=== PATIENT | female | born 1975 | race Hispanic/Latino ===

== ENCOUNTER 2017-09-14 07:43 | Emergency (ER) | payer SELFPAY ==
--- NOTE | 2017-09-14 08:27 | EDPHYS ---
Physician Documentation [facility] Name: Sidra Hodges Age: 42 yrs Sex: Female : 1975 Arrival Date: 09/14/2017 Time: 07:42 Bed 16 Private MD: ED Physician Pascual Lundy HPI: 09/14 08:13 This 42 yrs old Female presents to ER via EMS with complaints of Shoulder Pain ry - left knee pain. 08:13 The patient or guardian complains of decreased range of motion, pain, that is chronic. ry right shoulder and left shoulder. Context: The problem was sustained on a street or driveway. Onset: The symptoms/episode began/occurred 1 month(s) ago. Modifying factors: the symptoms are alleviated by remaining still, The symptoms are aggravated by movement, rotation of arm. Associated signs and symptoms: The patient has no apparent associated signs or symptoms. 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 - Social history:: Smoking status: Patient/guardian denies using tobacco. ROS: 08:15 Constitutional: Negative for fever, chills, and weight loss, Eyes: Negative for injury, ry pain, redness, and discharge, ENT: Negative for injury, pain, and discharge, Neck: Negative for injury, pain, and swelling, Cardiovascular: Negative for chest pain, palpitations, and edema, Respiratory: Negative for shortness of breath, cough, wheezing, and pleuritic chest pain, Back: Negative for injury and pain, : Negative for injury, bleeding, discharge, and swelling, Skin: Negative for injury, rash, and discoloration, Neuro: Negative for headache, weakness, numbness, tingling, and seizure, Psych: Negative for depression, anxiety, suicide ideation, homicidal ideation, and hallucinations, Allergy/Immunology: Negative for hives, rash, and allergies, Endocrine: Negative for neck swelling, polydipsia, polyuria, polyphagia, and marked weight changes, Hematologic/Lymphatic: Negative for swollen nodes, abnormal bleeding, and unusual bruising. 08:15 Abdomen/GI: Positive for rectal pain. 08:15 MS/extremity: Positive for decreased range of motion, pain, of the left leg and left shoulder and right shoulder. Exam: 08:15 Constitutional: This is a well developed, well nourished patient who is awake, alert, ry and in no acute distress. Head/Face: Normocephalic, atraumatic. Eyes: Pupils equal round and reactive to light, extra-ocular motions intact. Lids and lashes normal. Conjunctiva and sclera are non-icteric and not injected. Cornea within normal limits. Periorbital areas with no swelling, redness, or edema. ENT: Nares patent. No nasal discharge, no septal abnormalities noted. Tympanic membranes are normal and external auditory canals are clear. Oropharynx with no redness, swelling, or masses, exudates, or evidence of obstruction, uvula midline. Mucous membranes moist. Neck: Trachea midline, no thyromegaly or masses palpated, and no cervical lymphadenopathy. Supple, full range of motion without nuchal rigidity, or vertebral point tenderness. No Meningismus. Chest/axilla: Normal chest wall appearance and motion. Nontender with no deformity. No lesions are appreciated. Cardiovascular: Regular rate and rhythm with a normal S1 and S2. No gallops, murmurs, or rubs. Normal PMI, no JVD. No pulse deficits. Respiratory: Lungs have equal breath sounds bilaterally, clear to auscultation and percussion. No rales, rhonchi or wheezes noted. No increased work of breathing, no retractions or nasal flaring. Abdomen/GI: Soft, non-tender, with normal bowel sounds. No distension or tympany. No guarding or rebound. No evidence of tenderness throughout. Back: No spinal tenderness. No costovertebral tenderness. Full range of motion. Female : Normal external genitalia. Skin: Warm, dry with normal turgor. Normal color with no rashes, no lesions, and no evidence of cellulitis. Neuro: Awake and alert, GCS 15, oriented to person, place, time, and situation. Cranial nerves II-XII grossly intact. Motor strength 5/5 in all extremities. Sensory grossly intact. Cerebellar exam normal. Normal gait. Psych: Awake, alert, with orientation to person, place and time. Behavior, mood, and affect are within normal limits. Vital Signs: 07:37 BP 134 / 85; Pulse 75; Resp 16; Temp 98.4(O); Pulse Ox 98% on R/A; Weight 59.87 kg; rb1 Height 5 ft. 1 in. (154.94 cm); Pain 7/10; 08:30 BP 134 / 86; Pulse 83; Resp 16; Pulse Ox 100% on R/A; rb1 07:37 Body Mass Index 24.94 (59.87 kg, 154.94 cm) [facility] MDM: 07:43 Patient medically screened. [facility] 08:21 Data reviewed: vital signs, nurses notes, lab test result(s), urinalysis, radiologic ry studies, plain films. 09/14 07:44 Order name: Amylase, Serum [facility] 09/14 07:44 Order name: Basic Metabolic Panel [facility] 09/14 07:44 Order name: CBC with Diff [facility] 09/14 07:44 Order name: Creatinine for Radiology [facility] 09/14 07:44 Order name: Hepatic Function [facility] 09/14 07:44 Order name: Lipase [facility] 09/14 07:44 Order name: Urine Test (obtain specimen); Complete Time: 08:40 [facility] 09/14 07:44 Order name: Urine Microscopic Only [facility] 09/14 07:44 Order name: UDS [facility] 09/14 07:44 Order name: Urine Culture [facility] 09/14 07:44 Order name: Urine Dipstick-Ancillary (obtain specimen); Complete Time: 08:50 [facility] Administered Medications: 08:39 Not Given (physician changed orders): NS 0.9% 500 ml IV at bolus once [facility] 08:49 Drug: Tylenol 650 mg Route: PO; rb1 08:50 Follow up: Response: Medication administered at discharge. rb1 Disposition: 09/14/17 08:26 Discharged to Home. Impression: Hemorrhoids and perianal venous thrombosis, Pain in left shoulder, Pain in right shoulder, Pain in left knee. - Condition is Stable. - Discharge Instructions: Arthralgia, Arthritis, Nonspecific, Hemorrhoids, Musculoskeletal Pain, Shoulder Pain, Sitz Bath, Knee Pain, Shoulder Pain, [id number], Hemorrhoids, [id number]. - Prescriptions for Motrin IB 200 mg Oral Tablet - take 2 tablet by ORAL route every 6 hours As needed as needed with food; 30 tablet. Anusol- HC 25 mg Rectal Suppository - insert 1 suppository by RECTAL route every 12 hours As needed; 14 suppository. Colace 100 mg Oral Tablet - take 1 tablet by ORAL route every 12 hours; 14 tablet. - Medication Reconciliation Form, Thank You Letter, Antibiotic Education, Prescription Opioid Use form. - Follow up: Private Physician; When: 2 - 3 days; Reason: Recheck today's complaints, Continuance of care, Re-evaluation by your physician. Follow up: Miguel Angel Rodrigues MD; When: 2 - 3 days; Reason: Recheck today's complaints, Re-evaluation by your physician. - Problem is new. - Symptoms have improved. Signatures: Dispatcher [employer] EDPA Pascual Lundy MD MD cha Barber, Rebecca RN RN rb1 Corrections: (The following items were deleted from the chart) 08:39 07:44 IV Saline Lock ordered. ry rb1 08:40 07:44 Labs collected and sent ordered. ry cortez
--- NOTE | 2017-09-14 08:27 | ER ---
Nurse's Notes [facility] Name: Sidra Hodges Age: 42 yrs Sex: Female : 1975 Arrival Date: 09/14/2017 Time: 07:42 Bed 16 Private MD: Diagnosis: Hemorrhoids and perianal venous thrombosis;Pain in left shoulder;Pain in right shoulder;Pain in left knee Presentation: 09/14 07:37 Presenting complaint: EMS states: Pt. c/o of abdominal pain. A \T\ O x 4, history of rb1 Psych problems and seizures. BP 149/90, P 87, O2 100% RA. Pt. is able to ambulate. Transition of care: patient was not received from another setting of care. Care prior to arrival: None. 07:37 Method Of Arrival: EMS: [facility] 07:37 Acuity: CARMITA 3 rb1 07:37 Onset of symptoms is unknown. rb1 Triage Assessment: 07:37 GI: No signs and/or symptoms were reported involving the gastrointestinal system. : rb1 No signs and/or symptoms were reported regarding the genitourinary system. Derm: Bruising that is on left knee. 07:37 General: Appears in no apparent distress. comfortable, Behavior is calm, cooperative. rb1 Pain: Complains of pain in left leg and left shoulder and right shoulder Pain currently is 7 out of 10 on a pain scale. Pain began a month ago. Neuro: Level of Consciousness is awake, alert, obeys commands, Oriented to person, place, time, situation. Cardiovascular: Capillary refill < 3 seconds is brisk in bilateral fingers. Respiratory: Airway is patent Respiratory effort is even, unlabored, Respiratory pattern is regular, symmetrical. Musculoskeletal: Range of motion: intact in all extremities. 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 - Social history:: Smoking status: Patient/guardian denies using tobacco. Screenin:37 Abuse screen: Denies threats or abuse. Nutritional screening: No deficits noted. rb1 Tuberculosis screening: No symptoms or risk factors identified. Fall Risk None identified. Assessment: 07:37 GI: Bowel sounds present X 4 quads. Abd is soft Abd is non tender. rb1 07:37 General: See triage assessment . rb1 08:30 Reassessment: Patient appears in no apparent distress at this time. No changes from rb1 previously documented assessment. Vital Signs: 07:37 BP 134 / 85; Pulse 75; Resp 16; Temp 98.4(O); Pulse Ox 98% on R/A; Weight 59.87 kg; rb1 Height 5 ft. 1 in. (154.94 cm); Pain 7/10; 08:30 BP 134 / 86; Pulse 83; Resp 16; Pulse Ox 100% on R/A; rb1 07:37 Body Mass Index 24.94 (59.87 kg, 154.94 cm) rb1 ED Course: 07:37 Arm band placed on right wrist. rb1 07:37 Patient has correct armband on for positive identification. Bed in low position. Call rb1 light in reach. Side rails up X 1. Pulse ox on. NIBP on. 07:42 Patient arrived in ED. rb1 07:43 Dayanna Forte, RN is Primary Nurse. rb1 07:43 Pascual Lundy MD is Attending Physician. ry 07:46 Triage completed. rb1 08:26 Miguel Angel Rodrigues MD is Referral Physician. ry 08:45 No provider procedures requiring assistance completed. Patient did not have IV access rb1 during this emergency room visit. 08:49 Urine Microscopic Only Sent. rb1 Administered Medications: 08:39 Not Given (physician changed orders): NS 0.9% 500 ml IV at bolus once rb1 08:49 Drug: Tylenol 650 mg Route: PO; rb1 08:50 Follow up: Response: Medication administered at discharge. rb1 Outcome: 08:26 Discharge ordered by . [facility] 08:49 Patient left the ED. rb1 08:49 Discharged to home ambulatory. 08:49 Condition: stable 08:49 Discharge instructions given to patient, Instructed on discharge instructions, follow up and referral plans. medication usage, Demonstrated understanding of instructions, follow-up care, medications, Prescriptions given X 3. Signatures: Kamron, Pascual, MD MD ry Forte, Dayanna, RN RN rb1 Corrections: (The following items were deleted from the chart) 08:56 07:37 General: Appears See Nurses notes.. rb1 rb1 : 08:56 GI: rb1 rb1 08:59 Patient left the ED. rb1 rb1 08:57 No provider procedures requiring assistance completed. rb1 rb1 08:57 Patient did not have IV access during this emergency room visit. rb1 rb1 08:45 Discharged to home ambulatory, rb1 rb1 08:45 Condition: stable rb1 rb1 08:45 Discharge instructions given to patient, Instructed on discharge instructions, rb1 follow up and referral plans. medication usage, Demonstrated understanding of instructions, follow-up care, medications, Prescriptions given X 3, rb1 08:45 Patient left the ED. rb1 rb1
[2017-09-14] MEDS ORDERED: ACETAMINOPHEN 325 MG TABLET ONE (09:05)
[2017-09-14 09:28] LABS: Urine Blood NEGATIVE (NEG); Urine Glucose NEGATIVE (NEG); Urine Protein NEGATIVE (NEG); Urine Specific Gravity 1.025 (1.005-1.030); Urine pH 6.5 (5.0-7.0)
[2017-09-14 09:35] LABS: Urine Bacteria <20 /HPF (<20); Urine Culture Reflex Order NOT NEEDED; Urine RBC <5 /HPF (NONE SEEN)
== END 2017-09-14 08:59 | disposition home or self-care (01) ==
LOC: ER 07:43
DX: K64.5 Perianal venous thrombosis (principal); M25.512 Pain in left shoulder; M25.511 Pain in right shoulder; M25.562 Pain in left knee; F31.9 Bipolar disorder, unspecified; G40.909 Epilepsy, unspecified, not intractable, without status epilepticus; X58.XXXA Exposure to other specified factors, initial encounter; Y92.410 Unspecified street and highway as the place of occurrence of the external cause
CPT/HCPCS: 81003; 81015; 87086; 87088; 99284

== ENCOUNTER 2017-10-05 12:39 | Emergency (ER) | payer SELFPAY ==
[2017-10-05 14:06] LABS: Bicarbonate 30 mEq/L (21-31); Glucose Level 94 mg/dL (65-120); Lipase 16 U/L (22-51); Potassium 4.1 mEq/L (3.6-5.0); Sodium Level 132 mEq/L (135-145)
[2017-10-05 14:07] LABS: Absolute Lymphocytes (CBC) 1.8 K/uL (0.7-4.9); Absolute Monocytes 0.4 K/uL (0.1-1.3); Absolute Neutrophil 4.5 K/uL (1.8-8.0); Basophils % 0.6 % (0-1.3); Eosinophils % 3.4 % (0-4.4); Hematocrit 36.7 % (36.0-45.0); Lymphocytes % 25.9 % (15.3-44.8); MCH 29.5 pg (27.0-35.0); MCV 88.8 fL (80-100); Monocytes % 6.2 % (3.3-12.3); RBC Red Blood Cell Count 4.14 M/uL (3.86-4.86)
[2017-10-05 14:12] LABS: ALT/SGPT 11 IU/L (10-60); AST/SGOT 14 IU/L (10-42); Albumin 3.6 g/dL (3.2-5.5); Alkaline Phosphatase 44 IU/L (42-121); BUN Blood Urea Nitrogen 13 mg/dL (6-20); Bilirubin Direct < 0.1 mg/dL (0-0.2); Bilirubin Total 0.3 mg/dL (0.3-1.2); Glomerular Filtration Rate > 90 mL/min (=/>90); Protein, Total 7.6 g/dL (6.0-8.3)
[2017-10-05] MEDS ORDERED: ACETAMINOPHEN 325 MG TABLET ONE (14:52)
--- NOTE | 2017-10-05 14:57 | RAD REPORT ---
EXAM DESCRIPTION: CT - Abdomen Pelvis W Contrast - 10/05/2017 2:43 pm CLINICAL HISTORY: Abdominal pain, rectal pain, rectal bleeding COMPARISON: CT stone study June 2016 , contrast CT study August 2015 TECHNIQUE: Biphasic, helical CT imaging of the abdomen and pelvis was performed following 100 ml non -ionic IV contrast. Oral contrast was given. All CT scans are performed using dose optimization technique as appropriate and may include automated exposure control or mA/KV adjustment according to patient size. FINDINGS: No suspicious findings in the lung bases. The liver, spleen, and pancreas show no suspicious findings. Multiple gallstones are again identified . Acute gallbladder or biliary tree process is doubtful. Symmetric renal function is seen with no hydronephrosis or suspicious renal mass. No pyelonephritis o r acute renal parenchymal process. Renal cyst noted on the right and stable. Contracted urinary bladd er shows no suspicious finding. Uterus and ovaries show no new or suspicious findings. No gastric dilatation or gastric wall thickening. No acute small bowel finding. No appendicitis findi ngs. From cecum through descending colon there is no acute process seen. Sigmoid is decompressed and tortuous. Anna of the distal rectum are thickened and nodular. Edema is evident. This is a pattern s imilar to the 2016 study. No measurable stranding in the perirectal fat. 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 No free air, free fluid or inflammatory stranding. No hernia, mass or bulky lymphadenopathy. No adre nal abnormality. No suspicious bony findings. IMPRESSION: Thickened and nodular anna of the distal rectum. This could be an an infectious/inflamm atory proctitis or possibly internal hemorrhoids. No other acute GI process seen. Cholelithiasis similar to prior imaging. No active gallbladder process suspected.
--- NOTE | 2017-10-05 15:53 | EDPHYS ---
Physician Documentation [facility] Name: Sidra Hodges Age: 42 yrs Sex: Female : 1975 Arrival Date: 10/05/2017 Time: 12:41 Bed 18 Private MD: ED Physician Boris Olivera HPI: 10/05 15:41 This 42 yrs old Female presents to ER via EMS with complaints of Rectal Pain \T\ kdr abdominal pain. 15:42 The patient presents with abdominal pain in the epigastric area, in the upper abdomen, kdr Rectal area - it has been a problem before. Onset: The symptoms/episode began/occurred at an unknown time, This has been a ongoing problem and she has been seen here previously for the same issue a number of time. The symptoms do not radiate. Associated signs and symptoms: none. The symptoms are described as achy, crampy, dull, vague, waxing/waning. The patient has been recently seen by a physician: The patient has been recently seen at the [facility] Emergency Department. The patient is a poor historian. 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 - Social history:: Smoking status: Patient/guardian denies using tobacco. ROS: 15:42 Constitutional: The patient is a poor historian and is seen here on a regular basis for kdr same and other complaints 15:42 Unable to obtain ROS due to patient being uncooperative, The patient is a poor historian due to psych issues. Exam: 15:42 Constitutional: This is a well developed, well nourished patient who is awake, alert, kdr and in no acute distress. Head/Face: Normocephalic, atraumatic. Eyes: Pupils equal round and reactive to light, extra-ocular motions intact. Lids and lashes normal. Conjunctiva and sclera are non-icteric and not injected. Cornea within normal limits. Periorbital areas with no swelling, redness, or edema. Neck: Trachea midline, no thyromegaly or masses palpated, and no cervical lymphadenopathy. Supple, full range of motion without nuchal rigidity, or vertebral point tenderness. No Meningismus. Chest/axilla: Normal chest wall appearance and motion. Nontender with no deformity. No lesions are appreciated. Cardiovascular: Regular rate and rhythm with a normal S1 and S2. No gallops, murmurs, or rubs. Normal PMI, no JVD. No pulse deficits. Respiratory: Lungs have equal breath sounds bilaterally, clear to auscultation and percussion. No rales, rhonchi or wheezes noted. No increased work of breathing, no retractions or nasal flaring. Back: No spinal tenderness. No costovertebral tenderness. Full range of motion. Skin: Warm, dry with normal turgor. Normal color with no rashes, no lesions, and no evidence of cellulitis. MS/ Extremity: Pulses equal, no cyanosis. Neurovascular intact. Full, normal range of motion. 15:42 Abdomen/GI: Inspection: obese Bowel sounds: active, diminished, in all quadrants, Palpation: soft, mild abdominal tenderness, in all quadrants. Vital Signs: 12:49 BP 137 / 92; Pulse 71; Resp 18; Temp 97.8; Pulse Ox 99% on R/A; Pain 10/10; em 13:45 BP 143 / 90; Pulse 74; Resp 18; Pulse Ox 99% on R/A; em 14:45 BP 136 / 87; Pulse 78; Resp 18; Pulse Ox 99% on R/A; Pain 8/10; em 15:50 BP 132 / 86; Pulse 71; Resp 16; Temp 98.1(O); Pulse Ox 100% on R/A; em MDM: 15:42 Data reviewed: vital signs, nurses notes, lab test result(s), radiologic studies. kdr Counseling: I had a detailed discussion with the patient and/or guardian regarding: the historical points, exam findings, and any diagnostic results supporting the discharge/admit diagnosis, lab results, radiology results, the need for outpatient follow up. 15:53 Patient medically screened. kdr 10/05 13:26 Order name: CBC with Diff; Complete Time: 15:41 kdr 10/05 13:26 Order name: Chem 7; Complete Time: 14:59 kdr 10/05 13:26 Order name: CT Abd/Pelvis - W/Contrast; Complete Time: 14:59 kdr 10/05 13:26 Order name: Lipase; Complete Time: 14:59 kdr 10/05 13:26 Order name: Hepatic Function; Complete Time: 14:59 kdr Administered Medications: 15:30 Drug: Tylenol 650 mg Route: PO; em 16:30 Follow up: Response: No adverse reaction; Pain is decreased em Disposition: 10/05/17 15:53 Discharged to Home. Impression: Abdominal and pelvic pain, Rectal pain, internal hemorrhoids vs prcotitis. - Condition is Stable. - Discharge Instructions: Abdominal Pain, Adult, [id number]. - Prescriptions for Pepcid 20 mg Oral Tablet - take 1 tablet by ORAL route every 12 hours for 5 days; 10 tablet. Zofran 4 mg Oral Tablet - take 1 tablet by ORAL route every 12 hours As needed; 12 tablet. Tramadol 50 mg Oral Tablet - take 1 tablet by ORAL route every 8 hours as needed; 12 tablet. - Medication Reconciliation Form, Thank You Letter, Antibiotic Education, Prescription Opioid Use form. - Follow up: Private Physician; When: 1 - 2 days; Reason: If symptoms return, Further diagnostic work-up, Recheck today's complaints, Continuance of care, Re-evaluation by your physician. - Problem is an ongoing problem. - Symptoms are unchanged. Signatures: Dispatcher [employer] Boris Uribe MD MD kdr Florentin Heath, MART DIPPING MACHINE OPERATOR em
--- NOTE | 2017-10-05 15:53 | ER ---
Nurse's Notes [facility] Name: Sidra Hodges Age: 42 yrs Sex: Female : 1975 Arrival Date: 10/05/2017 Time: 12:41 Bed 18 Private MD: Diagnosis: Abdominal and pelvic pain;Rectal pain, internal hemorrhoids vs prcotitis Presentation: 10/05 12:41 Presenting complaint: EMS states: called out for rectal pain, c/o "pain down there" and em abd pain, reports bleeding that started 3 days ago. Transition of care: patient was not received from another setting of care. Onset of symptoms was October 02, 2017. Care prior to arrival: None. 12:41 Method Of Arrival: EMS: [facility] em 12:59 Acuity: CARMITA 3 iw Triage Assessment: 12:49 General: Appears in no apparent distress. uncomfortable, Behavior is calm, cooperative. em Pain: Complains of pain in rectum. 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 - Social history:: Smoking status: Patient/guardian denies using tobacco. Screenin:53 Abuse screen: Denies threats or abuse. Nutritional screening: No deficits noted. em Tuberculosis screening: No symptoms or risk factors identified. Fall Risk None identified. Assessment: 12:51 General: Appears in no apparent distress. uncomfortable, Behavior is calm, cooperative. em Pain: Complains of pain in rectum Pain currently is 10 out of 10 on a pain scale. Pain began 2-3 days ago. Neuro: Level of Consciousness is awake, alert, obeys commands, Oriented to person, place, time, situation. Cardiovascular: Capillary refill < 3 seconds Patient's skin is warm and dry. Respiratory: Airway is patent Respiratory effort is even, unlabored, Respiratory pattern is regular, symmetrical. GI: Abdomen is round non-distended, Bowel sounds present X 4 quads. Abd is soft X 4 quads Abdomen is tender to palpation in right lower quadrant and left lower quadrant Reports rectal bleeding, Patient currently denies nausea, vomiting. : Reports burning with urination. EENT: No signs and/or symptoms were reported regarding the EENT system. Derm: Skin is intact, Skin is pink, warm \\T\\ dry. Musculoskeletal: Range of motion: intact in all extremities. 13:43 Reassessment: Patient appears in no apparent distress at this time. I agree with above iw assessment by Florentin Heath LVN. 13:55 Reassessment: Patient appears in no apparent distress at this time. Patient and/or em family updated on plan of care and expected duration. Pain level reassessed. Patient is alert, oriented x 3, equal unlabored respirations, skin warm/dry/pink. 14:56 Reassessment: Patient appears in no apparent distress at this time. Patient is alert, em oriented x 3, equal unlabored respirations, skin warm/dry/pink. pt c/o of pain, Dr. Olivera notified, new orders received. 16:04 Reassessment: Patient appears in no apparent distress at this time. Patient and/or em family updated on plan of care and expected duration. Pain level reassessed. Patient is alert, oriented x 3, equal unlabored respirations, skin warm/dry/pink. Patient states feeling better. Vital Signs: 12:49 BP 137 / 92; Pulse 71; Resp 18; Temp 97.8; Pulse Ox 99% on R/A; Pain 10/10; em 13:45 BP 143 / 90; Pulse 74; Resp 18; Pulse Ox 99% on R/A; em 14:45 BP 136 / 87; Pulse 78; Resp 18; Pulse Ox 99% on R/A; Pain 8/10; em 15:50 BP 132 / 86; Pulse 71; Resp 16; Temp 98.1(O); Pulse Ox 100% on R/A; em ED Course: 12:41 Patient arrived in ED. em 12:45 Boris Olivera MD is Attending Physician. kdr 12:53 Arm band placed on. em 12:55 Patient has correct armband on for positive identification. Placed in gown. Bed in low em position. Call light in reach. Side rails up X2. 12:59 Triage completed. iw 13:30 Florentin Heath LVN is Primary Nurse. em 13:45 Inserted saline lock: 22 gauge in right antecubital area, using aseptic technique. em Blood collected. 13:45 Initial lab(s) drawn, by me, sent to lab. em 14:17 Note: Per Dr. Olivera no need for a UPT.. jg1 14:43 CT Abd/Pelvis - W/Contrast In Process Unspecified. EDMS 16:29 No provider procedures requiring assistance completed. IV discontinued, intact, em bleeding controlled, No redness/swelling at site. Pressure dressing applied. Administered Medications: 15:30 Drug: Tylenol 650 mg Route: PO; em 16:30 Follow up: Response: No adverse reaction; Pain is decreased em Outcome: 15:53 Discharge ordered by MD. kdr 16:30 Discharged to home ambulatory. em 16:30 Condition: good 16:30 Discharge instructions given to patient, Instructed on discharge instructions, follow up and referral plans. medication usage, Demonstrated understanding of instructions, follow-up care, medications, Prescriptions given X 3. 16:35 Patient left the ED. em Signatures: Dispatcher [employer] EDMS Boris Olivera MD MD [facility] Lea Ocasio j Florentin Heath LVN LVN em Laila Foreman, RN RN iw
== END 2017-10-05 16:35 | disposition home or self-care (01) ==
LOC: ER 12:39
DX: R10.2 Pelvic and perineal pain (principal); F31.9 Bipolar disorder, unspecified
CPT/HCPCS: 36415; 74177; 80048; 80076; 83690; 85025; 99284; Q9967

== ENCOUNTER 2017-10-22 16:37 | Emergency (ER) | payer SELFPAY ==
--- NOTE | 2017-10-22 17:35 | EDPHYS ---
Physician Documentation [facility] Name: Sidra Hodges Age: 42 yrs Sex: Female : 1975 Arrival Date: 10/22/2017 Time: 16:38 Bed 24 Private MD: ED Physician Pascual Lundy HPI: 10/22 17:30 This 42 yrs old Female presents to ER via EMS with complaints of got upset, ry anxiety. 17:30 [place]. Onset: The symptoms/episode began/occurred just prior to [facility] arrival, today. Severity of symptoms: At their worst the symptoms were mild in the emergency department the symptoms have improved moderately. The patient has experienced similar episodes in the past, a few times. Historical: - Allergies: 16:57 NKA; ss - PMHx: 16:57 Anxiety; Bipolar disorder; Depression; epilepsy; hemorrhoids; ss - Immunization history:: Adult Immunizations unknown. - Social history:: Smoking status: Patient/guardian denies using tobacco. - Family history:: not pertinent. ROS: 17:30 Constitutional: Negative for fever, chills, and weight loss, Eyes: Negative for injury, ry pain, redness, and discharge, ENT: Negative for injury, pain, and discharge, Neck: Negative for injury, pain, and swelling, Cardiovascular: Negative for chest pain, palpitations, and edema, Respiratory: Negative for shortness of breath, cough, wheezing, and pleuritic chest pain, Abdomen/GI: Negative for abdominal pain, nausea, vomiting, diarrhea, and constipation, Back: Negative for injury and pain, : Negative for injury, bleeding, discharge, and swelling, MS/Extremity: Negative for injury and deformity, Skin: Negative for injury, rash, and discoloration, Neuro: Negative for headache, weakness, numbness, tingling, and seizure, Allergy/Immunology: Negative for hives, rash, and allergies, Endocrine: Negative for neck swelling, polydipsia, polyuria, polyphagia, and marked weight changes, Hematologic/Lymphatic: Negative for swollen nodes, abnormal bleeding, and unusual bruising. 17:30 Psych: Positive for anxiety. Exam: 17:33 Constitutional: This is a well developed, well nourished patient who is awake, alert, ry and in no acute distress. Head/Face: Normocephalic, atraumatic. Eyes: Pupils equal round and reactive to light, extra-ocular motions intact. Lids and lashes normal. Conjunctiva and sclera are non-icteric and not injected. Cornea within normal limits. Periorbital areas with no swelling, redness, or edema. ENT: Nares patent. No nasal discharge, no septal abnormalities noted. Tympanic membranes are normal and external auditory canals are clear. Oropharynx with no redness, swelling, or masses, exudates, or evidence of obstruction, uvula midline. Mucous membranes moist. Neck: Trachea midline, no thyromegaly or masses palpated, and no cervical lymphadenopathy. Supple, full range of motion without nuchal rigidity, or vertebral point tenderness. No Meningismus. Chest/axilla: Normal chest wall appearance and motion. Nontender with no deformity. No lesions are appreciated. Cardiovascular: Regular rate and rhythm with a normal S1 and S2. No gallops, murmurs, or rubs. Normal PMI, no JVD. No pulse deficits. Respiratory: Lungs have equal breath sounds bilaterally, clear to auscultation and percussion. No rales, rhonchi or wheezes noted. No increased work of breathing, no retractions or nasal flaring. Abdomen/GI: Soft, non-tender, with normal bowel sounds. No distension or tympany. No guarding or rebound. No evidence of tenderness throughout. Back: No spinal tenderness. No costovertebral tenderness. Full range of motion. Skin: Warm, dry with normal turgor. Normal color with no rashes, no lesions, and no evidence of cellulitis. MS/ Extremity: Pulses equal, no cyanosis. Neurovascular intact. Full, normal range of motion. Neuro: Awake and alert, GCS 15, oriented to person, place, time, and situation. Cranial nerves II-XII grossly intact. Motor strength 5/5 in all extremities. Sensory grossly intact. Cerebellar exam normal. Normal gait. Psych: Awake, alert, with orientation to person, place and time. Behavior, mood, and affect are within normal limits. Vital Signs: 16:57 BP 136 / 85; Pulse 75; Resp 17; Temp 98.2(TE); Pulse Ox 100% on R/A; ss MDM: 16:54 Patient medically screened. [facility] 17:33 Data reviewed: vital signs, nurses notes. ry Administered Medications: No medications were administered Disposition: 10/22/17 17:34 Discharged to Home. Impression: Anxiety disorder, unspecified, Bipolar disorder. - Condition is Stable. - Discharge Instructions: Panic Attacks, Social Anxiety Disorder, Panic Attacks, [id number], Generalized Anxiety Disorder. - Prescriptions for Benadryl 25 mg Oral Capsule - take 1 capsule by ORAL route every 6 hours As needed; 20 tablet. - Medication Reconciliation Form, Thank You Letter, Antibiotic Education, Prescription Opioid Use form. - Follow up: Private Physician; When: 2 - 3 days; Reason: Recheck today's complaints, Continuance of care, Re-evaluation by your physician. - Problem is new. - Symptoms have improved. Signatures: Pascual Lundy MD MD cha Smirch, Shelby, RN RN ss
--- NOTE | 2017-10-22 17:35 | ER ---
Nurse's Notes [facility] Name: Sidra Hodges Age: 42 yrs Sex: Female : 1975 Arrival Date: 10/22/2017 Time: 16:38 Bed 24 Private MD: Diagnosis: Anxiety disorder, unspecified;Bipolar disorder Presentation: 10/22 16:54 Presenting complaint: EMS states: patient was riding the bus to [place] today and then ss back home when she realized the business mgr gave her the wrong change back. Patient attempted to file a complaint with [place] [employer], who directed her to [place] [employer] to file the compliant, and when [place] police told her they could not give her a ride, she had a panic attack and slowly fell to the ground (grass). Pt just states that she is upset and she has a headache at this time. Transition of care: patient was not received from another setting of care. Onset of symptoms was October 22, 2017. Initial Sepsis Screen: Does the patient meet any 2 criteria? No. Patient's initial sepsis screen is negative. Does the patient have a suspected source of infection? No. Patient's initial sepsis screen is negative. Care prior to arrival: None. 16:54 Method Of Arrival: EMS: [facility] ss 16:54 Acuity: CARMITA 5 ss Historical: - Allergies: 16:57 NKA; ss - PMHx: 16:57 Anxiety; Bipolar disorder; Depression; epilepsy; hemorrhoids; ss - Immunization history:: Adult Immunizations unknown. - Social history:: Smoking status: Patient/guardian denies using tobacco. - Family history:: not pertinent. Screenin:38 Abuse screen: Denies threats or abuse. Denies injuries from another. Nutritional ss screening: No deficits noted. Tuberculosis screening: Never had TB. Fall Risk None identified. Assessment: 16:38 General: Appears in no apparent distress. Behavior is cooperative, tearful. Pain: ss Complains of pain in head in entire Pain currently is 6 out of 10 on a pain scale. Is continuous. Neuro: Level of Consciousness is awake, alert, obeys commands. Cardiovascular: Capillary refill < 3 seconds is brisk in bilateral fingers. Respiratory: Airway is patent Respiratory effort is even, unlabored, Respiratory pattern is regular, symmetrical. GI: Patient currently denies abdominal pain, diarrhea, nausea, vomiting. : No signs and/or symptoms were reported regarding the genitourinary system. EENT: Nares are clear Oral mucosa is moist. Derm: Skin is intact, is healthy with good turgor, Skin is pink, warm \T\ dry. normal. Musculoskeletal: Circulation, motion, and sensation intact. Range of motion: intact in all extremities, Swelling absent. Vital Signs: 16:57 BP 136 / 85; Pulse 75; Resp 17; Temp 98.2(TE); Pulse Ox 100% on R/A; ss ED Course: 16:38 Patient arrived in ED. ss 16:38 Patient has correct armband on for positive identification. Bed in low position. Call ss light in reach. Side rails up X2. lunchroom monitor on. Pulse ox on. NIBP on. Warm blanket given. 16:54 Pascual Lundy MD is Attending Physician. [facility] 16:57 Triage completed. 16:57 Arm band placed on right wrist. 17:12 Nyla Luz, RN is Primary Nurse. [facility] 18:00 No provider procedures requiring assistance completed. Patient did not have IV access ss during this emergency room visit. Administered Medications: No medications were administered Outcome: 17:34 Discharge ordered by . [facility] 18:17 Discharged to home ambulatory. 18:17 Condition: good 18:17 Discharge instructions given to patient, Instructed on discharge instructions, follow up and referral plans. medication usage, Demonstrated understanding of instructions, follow-up care, medications, Prescriptions given X 1. 18:18 Patient left the ED. Signatures: Nyla Luz, RN RN aj Pascual Lundy MD MD cha Smirch, Shelby RN RN
== END 2017-10-22 18:18 | disposition home or self-care (01) ==
LOC: ER 16:37
DX: F41.9 Anxiety disorder, unspecified (principal); F31.9 Bipolar disorder, unspecified
CPT/HCPCS: 99284

== ENCOUNTER 2017-10-23 11:48 | Emergency (ER) | payer SELFPAY ==
--- NOTE | 2017-10-23 14:05 | RAD REPORT ---
EXAM DESCRIPTION: Kristy Cleveland (2 Views)10/23/2017 1:52 pm CLINICAL HISTORY: Chest pain COMPARISON: August 2017 FINDINGS: The lungs appear clear of acute infiltrate. The heart is normal size IMPRESSION: No acute abnormalities displayed
--- NOTE | 2017-10-23 14:25 | ER ---
Nurse's Notes [facility] Name: Sidra Hodges Age: 42 yrs Sex: Female : 1975 Arrival Date: 10/23/2017 Time: 11:52 Bed Treatment Private MD: Diagnosis: Headache;Other chest pain-Contusion chest wall Presentation: 10/23 12:03 Presenting complaint: Patient states: Small bruise to right sternal chest 5 days ago. aj Transition of care: patient was not received from another setting of care. Onset of symptoms was October 19, 2017. Initial Sepsis Screen: Does the patient meet any 2 criteria? No. Patient's initial sepsis screen is negative. Does the patient have a suspected source of infection? No. Patient's initial sepsis screen is negative. Care prior to arrival: None. 12:03 Method Of Arrival: Ambulatory aj 12:03 Acuity: CARMITA 5 aj Triage Assessment: 12:05 Headache History: The patient has had previous headaches. General: Appears in no aj apparent distress. comfortable, Behavior is calm, cooperative, appropriate for age. Pain: Complains of pain in chest Pain currently is 10 out of 10 on a pain scale. Pain began 5 days ago Also complains of no other associated symptoms. Neuro: Level of Consciousness is awake, alert, obeys commands, Oriented to person, place, time, situation, Appropriate for age. Cardiovascular: Capillary refill < 3 seconds in bilateral fingers Patient's skin is warm and dry. Respiratory: Airway is patent Trachea midline Respiratory effort is even, unlabored, Respiratory pattern is regular, symmetrical. Derm: Skin is intact, is healthy with good turgor, Skin is pink, warm \T\ dry. normal. 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 - Social history:: Smoking status: Patient/guardian denies using tobacco. Screenin:42 Abuse screen: Denies threats or abuse. Denies injuries from another. Nutritional iw screening: No deficits noted. Tuberculosis screening: No symptoms or risk factors identified. Fall Risk None identified. Assessment: 13:40 General: Appears in no apparent distress. Behavior is calm, cooperative. Pain: iw Complains of pain in mid-sternal area and forehead. Neuro: Level of Consciousness is awake, alert, obeys commands, Oriented to person, place, time, Moves all extremities. Full function Reports headache. Cardiovascular: Patient's skin is warm and dry. Respiratory: Respiratory effort is even, unlabored. GI: No signs and/or symptoms were reported involving the gastrointestinal system. Derm: Skin is pink, warm \T\ dry. normal. Musculoskeletal: Range of motion: intact in all extremities. Vital Signs: 12:05 BP 115 / 72; Pulse 78; Resp 19; Temp 98.2; Pulse Ox 98% on R/A; Weight 94.8 kg; Height aj 5 ft. 3 in. (160.02 cm); Pain 10/10; 12:05 Body Mass Index 37.02 (94.80 kg, 160.02 cm) aj ED Course: 11:52 Patient arrived in ED. mr 12:04 Triage completed. aj 12:05 Arm band placed on left wrist. Patient placed in waiting room, Patient notified of wait aj time. 13:04 Pascual Lopez PA is PHCP. cp 13:04 Derrick Wilhelm MD is Attending Physician. cp 13:10 Laila Foreman, RN is Primary Nurse. iw 13:45 Patient has correct armband on for positive identification. iw 13:50 XRAY Chest Pa And Lat (2 Views) In Process Unspecified. EDMS 14:42 No provider procedures requiring assistance completed. Patient did not have IV access iw during this emergency room visit. Administered Medications: 14:30 Drug: Ibuprofen 800 mg Route: PO; iw Outcome: 14:24 Discharge ordered by . cp 14:43 Discharged to home ambulatory. iw 14:43 Condition: good 14:43 Discharge instructions given to patient, Instructed on discharge instructions, follow up and referral plans. medication usage, Demonstrated understanding of instructions, follow-up care, medications, Prescriptions given X 1. 14:43 Patient left the ED. iw Signatures: Dispatcher [employer] Kateryna Arroyo, Antonella Adams RN, Irene, Pascual Lao RN, PA PA cp
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
[2017-10-23] MEDS ORDERED: IBUPROFEN 400 MG TAB ONE (14:26)
== END 2017-10-23 14:43 | disposition home or self-care (01) ==
LOC: ER 11:48
DX: S20.219A Contusion of unspecified front wall of thorax, initial encounter (principal); X58.XXXA Exposure to other specified factors, initial encounter; Y93.9 Activity, unspecified; Y92.9 Unspecified place or not applicable; F41.8 Other specified anxiety disorders; G40.909 Epilepsy, unspecified, not intractable, without status epilepticus
CPT/HCPCS: 71046; 99283

== ENCOUNTER 2017-10-27 05:38 | Emergency (ER) | payer SELFPAY ==
[2017-10-27 06:51] LABS: Absolute Lymphocytes (CBC) 2.2 K/uL (0.7-4.9); Absolute Monocytes 0.7 K/uL (0.1-1.3); Absolute Neutrophil 2.3 K/uL (1.8-8.0); Basophils % 1.1 % (0-1.3); Eosinophils % 7.2 % (0-4.4); Hematocrit 36.3 % (36.0-45.0); Lymphocytes % 38.9 % (15.3-44.8); MCH 29.4 pg (27.0-35.0); MCV 88.2 fL (80-100); MPV 8.2 fL (7.6-11.3); Monocytes % 11.6 % (3.3-12.3); RBC Red Blood Cell Count 4.12 M/uL (3.86-4.86)
[2017-10-27 07:27] LABS: Bicarbonate 30 mEq/L (21-31); Glucose Level 93 mg/dL (65-120); Potassium 4.1 mEq/L (3.6-5.0); Sodium Level 134 mEq/L (135-145)
[2017-10-27 07:32] LABS: Albumin 3.2 g/dL (3.2-5.5); Alkaline Phosphatase 45 IU/L (42-121); BUN Blood Urea Nitrogen 22 mg/dL (6-20); Bilirubin Total 0.4 mg/dL (0.3-1.2); Protein, Total 7.1 g/dL (6.0-8.3); Valproic Acid (Depakene) Level 88.8 ug/ml (50-100)
[2017-10-27 07:39] LABS: ALT/SGPT 13 IU/L (10-60); AST/SGOT 20 IU/L (10-42)
--- NOTE | 2017-10-27 07:55 | ER ---
Nurse's Notes [facility] Name: Sidra Hodges Age: 42 yrs Sex: Female : 1975 Arrival Date: 10/27/2017 Time: 05:41 Bed 5 Private MD: Diagnosis: Gastrointestinal hemorrhage, unspecified;Hemorrhoids and perianal venous thrombosis;Epilepsy and recurrent seizures Presentation: 10/27 05:42 Transition of care: patient was not received from another setting of care. Onset of ak1 symptoms is unknown. Initial Sepsis Screen: Does the patient meet any 2 criteria? No. Patient's initial sepsis screen is negative. Does the patient have a suspected source of infection? No. Patient's initial sepsis screen is negative. Care prior to arrival: None. 05:42 Method Of Arrival: EMS: [facility] ak 05:42 Acuity: CARMITA 4 ak1 05:42 Presenting complaint: Patient states: "I had a rectal bleeding and pain. I also had two ao epileptic attacks tonight" Patient said in Tajik that this problems are due to family problems that she is been having. Transition of care: patient was not received from another setting of care. Onset of symptoms is unknown. Triage Assessment: 05:43 General: Appears in no apparent distress. Behavior is calm, cooperative, quiet. Pain: ak1 Complains of pain in rectal pain. EENT: No signs and/or symptoms were reported regarding the EENT system. Neuro: No deficits noted. Cardiovascular: No deficits noted. Respiratory: No deficits noted. GI: No signs and/or symptoms were reported involving the gastrointestinal system. : No signs and/or symptoms were reported regarding the genitourinary system. Derm: No signs and/or symptoms reported regarding the dermatologic system. Musculoskeletal: No signs and/or symptoms reported regarding the musculoskeletal system. Historical: - Allergies: 05:43 NKA; ak1 - Home Meds: 05:43 Abilify 10 mg Oral tab 1 tab once daily [Active]; Depakote 500 mg Oral TbEC 1 tab in ak1 the morning and 2 tabs nightly [Active]; oxcarbazepine 300 mg Oral tab 1 tab 2 times per day [Active]; - PMHx: 05:43 Anxiety; Bipolar disorder; Depression; epilepsy; hemorrhoids; ak1 - PSHx: 05:43 None; ak1 - Immunization history:: Adult Immunizations unknown. - Social history:: Smoking status: Patient/guardian denies using tobacco. Screenin:44 Abuse screen: Denies threats or abuse. Denies injuries from another. Nutritional ak1 screening: No deficits noted. Tuberculosis screening: No symptoms or risk factors identified. Fall Risk None identified. Assessment: 06:45 Reassessment: Patient appears in no apparent distress at this time. No changes from ak1 previously documented assessment. see triage assessment. 07:20 General: Appears comfortable, Behavior is calm, cooperative. Pain: Denies pain. Neuro: aa5 Level of Consciousness is awake, alert, obeys commands, Oriented to person, place, time, situation. Cardiovascular: Heart tones S1 S2 present Rhythm is regular. Respiratory: Airway is patent Respiratory effort is even, unlabored, Respiratory pattern is regular, symmetrical. GI: Abdomen is round non-distended, Bowel sounds present X 4 quads. Abd is soft and non tender X 4 quads. Reports rectal bleeding. Pt states "I've had rectal bleeding on and off since I was a kid" Patient currently denies diarrhea, nausea, vomiting. : No signs and/or symptoms were reported regarding the genitourinary system. EENT: No signs and/or symptoms were reported regarding the EENT system. Derm: Skin is pink, warm \\T\\ dry. Musculoskeletal: Range of motion: intact in all extremities. 08:10 Reassessment: Patient is alert, oriented x 3, equal unlabored respirations, skin aa5 warm/dry/pink. Vital Signs: 05:41 BP 130 / 89; Pulse 73; Resp 16; Temp 98.7(O); Pulse Ox 100% on R/A; Weight 79.38 kg ak1 (R); Height 4 ft. 11 in. (149.86 cm) (R); Pain 10/10; 06:45 BP 119 / 82; Pulse 67; Resp 14; Temp 98.7; Pulse Ox 100% on R/A; Pain 10/10; ak1 08:00 BP 115 / 82; Pulse 61; Resp 16 S; Temp 98.7(O); Pulse Ox 100% on R/A; aa5 05:41 Body Mass Index 35.35 (79.38 kg, 149.86 cm) ms1 ED Course: 05:41 Patient arrived in ED. ak1 05:42 Triage completed. ak1 05:43 Arm band placed on Patient placed in an exam room, on a stretcher, on pulse oximetry, ak1 Patient notified of wait time. 05:44 Patient has correct armband on for positive identification. Bed in low position. Call ak1 light in reach. Side rails up X 1. Pulse ox on. NIBP on. 05:45 Lefty Tucker, GERONIMO is Primary Nurse. ao 06:12 Bria Alexis NP is PHCP. rh1 06:12 Yong Banks MD is Attending Physician. 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 ao 06:47 Inserted saline lock: 22 gauge in right hand, using aseptic technique. Blood collected. ak1 06:47 Missed attempt(s): 22 gauge in left forearm. Bleeding controlled, band aid applied, ak1 catheter tip intact. 07:15 Maggy Beasley RN is Primary Nurse. aa5 07:53 Gena Yang MD is Referral Physician. rh1 08:10 IV discontinued, intact, bleeding controlled, No redness/swelling at site. Pressure aa5 dressing applied. Administered Medications: No medications were administered Point of Care Testing: Guaiac: 06:27 Stool Guaiac: Positive; Stool Hemoccult Control: Pass; ao Outcome: 07:55 Discharge ordered by . rh1 08:10 Discharged to home ambulatory. aa5 08:10 Condition: stable 08:10 Discharge instructions given to patient, Instructed on discharge instructions, follow up and referral plans. medication usage, Demonstrated understanding of instructions, follow-up care, medications, Prescriptions given X 3. 08:12 Patient left the ED. aa5 Signatures: Maggy Beasley RN RN aa5 Jeannette Zeng RN RN ak1 Bria Alexis NP REGISTERED RADIATION THERAPIST 1 Lefty Tucker RN RN ao Corrections: (The following items were deleted from the chart) 08:36 08:27 Patient left the ED. aa5 aa5
--- NOTE | 2017-10-27 07:56 | EDPHYS ---
Physician Documentation [facility] Name: Sidra Hodges Age: 42 yrs Sex: Female : 1975 Arrival Date: 10/27/2017 Time: 05:41 Bed 5 Private MD: ED Physician oYng Banks HPI: 10/27 06:13 This 42 yrs old Female presents to ER via EMS with complaints of rectal rh1 bleeding, seizure. 06:13 rectal bleeding, SZ. Onset: The symptoms/episode began/occurred last night. Severity of rh1 symptoms: At their worst the symptoms were moderate in the emergency department the symptoms are unchanged. The patient has experienced similar episodes in the past. Pt reports she has been having rectal bleeding ongoing for the past 1 year. Last night occurred x 2 with painful bowel movements. Last night she had 2 SZ attacks, described as feeling anxious and crying, which she says are typical for her SZ. She reports she has been taking her medication as prescribed. No abdominal pain, vomiting, fever.. Historical: - Allergies: 05:43 NKA; ak1 - Home Meds: 05:43 Abilify 10 mg Oral tab 1 tab once daily [Active]; Depakote 500 mg Oral TbEC 1 tab in ak1 the morning and 2 tabs nightly [Active]; oxcarbazepine 300 mg Oral tab 1 tab 2 times per day [Active]; - PMHx: 05:43 Anxiety; Bipolar disorder; Depression; epilepsy; hemorrhoids; ak1 - PSHx: 05:43 None; ak1 - Immunization history:: Adult Immunizations unknown. - Social history:: Smoking status: Patient/guardian denies using tobacco. ROS: 06:13 Constitutional: Negative for fever, chills rh1 06:13 Abdomen/GI: Negative for abdominal pain, nausea and vomiting. 06:13 : Negative for urinary symptoms, small amounts. 06:13 Skin: Negative for pallor. 06:13 Neuro: Positive for seizure activity, Negative for altered mental status, syncope. 06:13 Psych: Positive for anxiety. 06:13 All other systems are negative. Exam: 06:13 Constitutional: This is a well developed, well nourished patient who is awake, alert, rh1 and in no acute distress. Head/Face: Normocephalic, atraumatic. Eyes: Pupils equal round and reactive to light, extra-ocular motions intact. Lids and lashes normal. Conjunctiva and sclera are non-icteric and not injected. Cornea within normal limits. Periorbital areas with no swelling, redness, or edema. Neck: Trachea midline, and no cervical lymphadenopathy. Supple, full range of motion without nuchal rigidity. No Meningismus. Chest/axilla: Normal chest wall appearance and motion. Nontender with no deformity. No lesions are appreciated. Cardiovascular: Regular rate and rhythm with a normal S1 and S2. No gallops, murmurs, or rubs. No JVD. No pulse deficits. Respiratory: Lungs have equal breath sounds bilaterally, clear to auscultation. No rales, rhonchi or wheezes noted. No increased work of breathing. Abdomen/GI: Soft, non-tender, with normal bowel sounds. No distension. No guarding or rebound. No evidence of tenderness throughout. 06:13 Back: No spinal tenderness. No costovertebral tenderness. Full range of motion. Skin: Warm, dry with normal turgor. Normal color with no rashes, no lesions, and no evidence of cellulitis. MS/ Extremity: Pulses equal, no cyanosis. Neurovascular intact. Full, normal range of motion. 06:13 Abdomen/GI: Rectal exam: Stool: dunn, guaiac positive, hemorrhoid(s), external, with inflammation, with pain, without bleeding, without thrombosis, mass, is not appreciated, tenderness, that is mild. 06:13 Neuro: Orientation: to person, place \T\ time. Mentation: appropriate for stated age, Motor: moves all fours, Gait: is steady, seizure activity, is not displayed by the patient. 06:13 Psych: Affect is flat. Vital Signs: 05:41 BP 130 / 89; Pulse 73; Resp 16; Temp 98.7(O); Pulse Ox 100% on R/A; Weight 79.38 kg ak1 (R); Height 4 ft. 11 in. (149.86 cm) (R); Pain 10/10; 06:45 BP 119 / 82; Pulse 67; Resp 14; Temp 98.7; Pulse Ox 100% on R/A; Pain 10/10; ak1 08:00 BP 115 / 82; Pulse 61; Resp 16 S; Temp 98.7(O); Pulse Ox 100% on R/A; aa5 05:41 Body Mass Index 35.35 (79.38 kg, 149.86 cm) ak1 MDM: 06:13 Patient medically screened. rh1 06:30 ED course: Pt. reports she is having seizure attack right now, crying and feeling rh1 anxious after nurse explained need for drawing blood. No SZ activity noted.. 07:45 ED course: Continues to complaint of rectal pain, and with pain with HEENA, abdomen soft rh1 and non - tender, no c/o abdominal pain. Reports painful bowel movements. CT findings in September with procitits vs. inflammation vs internal hemorrhoids, will treat for proctitis, with instruction to follow up with GI and take stool softeners.. 07:50 Data reviewed: vital signs, nurses notes, lab test result(s), I have discussed the [facility] patient's presentation/case with the attending Emergency Department Physician; and as a result, I will discharge patient. Data interpreted: Pulse oximetry: on room air is 100 %. Interpretation: normal. 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 ED course: . 10/27 06:26 Order name: CBC with Diff; Complete Time: 07:12 rh1 10/27 06:26 Order name: CMP; Complete Time: 07:41 rh1 10/27 06:26 Order name: Depakote; Complete Time: 07:41 rh1 10/27 06:26 Order name: IV Start; Complete Time: 06:49 rh1 Administered Medications: No medications were administered Point of Care Testing: Guaiac: 06:27 Stool Guaiac: Positive; Stool Hemoccult Control: Pass; ao Disposition: 10:35 Co-signature as Attending Physician, Yong Banks MD. rn Disposition: 10/27/17 07:55 Discharged to Home. Impression: Gastrointestinal hemorrhage, unspecified, Hemorrhoids and perianal venous thrombosis, Epilepsy and recurrent seizures. - Condition is Stable. - Discharge Instructions: Gastrointestinal Bleeding, Hemorrhoids, Seizure, Adult, Sitz Bath, Proctitis. - Prescriptions for Flagyl 500 mg Oral Tablet - take 1 tablet by ORAL route every 8 hours for 10 days; 30 tablet. Cipro 500 mg Oral Tablet - take 1 tablet by ORAL route every 12 hours for 10 days; 20 tablet. Colace 100 mg Oral Tablet - take 1 tablet by ORAL route every 12 hours; 14 tablet. - Medication Reconciliation Form, Thank You Letter, Antibiotic Education, Prescription Opioid Use form. - Follow up: Private Physician; When: 1 - 2 days; Reason: Recheck today's complaints, Continuance of care, Re-evaluation by your physician. Follow up: Gena Yang MD; When: 1 - 2 days; Reason: Further diagnostic work-up, Recheck today's complaints, Continuance of care. Follow up: Emergency Department; When: As needed; Reason: Fever > 102 F, If symptoms return, Trouble breathing, Worsening of condition. - Problem is new. - Symptoms have improved. Signatures: Dispatcher [employer] EDMS Yong Banks MD MD rn Calderon, Audri, RN RN aa5 Jeannette Zeng RN RN ak1 Bria Alexis, ALEXEI FIELD BROOMER rh1 Corrections: (The following items were deleted from the chart) 06:33 06:13 The patient has not experienced similar symptoms in the past, rh1 rh1 06:35 06:13 Pt reports she has been having rectal bleeding ongoing for the past 1 year. Last rh1 night she had 2 SZ attacks, described as feeling anxious and crying. She reports she has been taking her medication as prescribed.. rh1 06:35 06:13 Pt reports she has been having rectal bleeding ongoing for the past 1 year. Last rh1 night she had 2 SZ attacks, described as feeling anxious and crying. She reports she has been taking her medication as prescribed.. rh1 06:39 06:13 Pt reports she has been having rectal bleeding ongoing for the past 1 year. Last rh1 night she had 2 SZ attacks, described as feeling anxious and crying. She reports she has been taking her medication as prescribed.. rh1 06:39 06:13 Pt reports she has been having rectal bleeding ongoing for the past 1 year. Last rh1 night occurred x 2 with painful bowel movements. Last night she had 2 SZ attacks, described as feeling anxious and crying, which are typical for her SZ. She reports she has been taking her medication as prescribed. No abdominal pain, vomiting, fever.. rh1 08:27 07:55 10/27/2017 07:55 Discharged to Home. Impression: Gastrointestinal hemorrhage, aa5 unspecified; Hemorrhoids and perianal venous thrombosis; Epilepsy and recurrent seizures. Condition is Stable. Forms are Medication Reconciliation Form, Thank You Letter, Antibiotic Education, Prescription Opioid Use. Follow up: Private Physician; When: 1 - 2 days; Reason: Recheck today's complaints, Continuance of care, Re-evaluation by your physician. Follow up: Gena Yang; When: 1 - 2 days; Reason: Further diagnostic work-up, Recheck today's complaints, Continuance of care. Follow up: Emergency Department; When: As needed; Reason: Fever > 102 F, If symptoms return, Trouble breathing, Worsening of condition. Problem is new. Symptoms have improved. rh1
== END 2017-10-27 08:27 | disposition home or self-care (01) ==
LOC: ER 05:38
DX: R07.9 Chest pain, unspecified (principal); G40.909 Epilepsy, unspecified, not intractable, without status epilepticus; F31.9 Bipolar disorder, unspecified; F32.9 Major depressive disorder, single episode, unspecified
CPT/HCPCS: 36415; 80053; 80164; 85025; 99284

== ENCOUNTER 2017-10-29 11:57 | Emergency (ER) | payer SELFPAY ==
[2017-10-29 14:24] LABS: Absolute Lymphocytes (CBC) 1.7 K/uL (0.7-4.9); Absolute Monocytes 0.6 K/uL (0.1-1.3); Absolute Neutrophil 2.7 K/uL (1.8-8.0); Eosinophils % 7.7 % (0-4.4); Lymphocytes % 31.9 % (15.3-44.8); MCH 29.1 pg (27.0-35.0); MCV 88.2 fL (80-100); MPV 8.2 fL (7.6-11.3); Monocytes % 10.3 % (3.3-12.3); RBC Red Blood Cell Count 4.19 M/uL (3.86-4.86)
[2017-10-29 14:35] LABS: Bicarbonate 32 mEq/L (21-31); Glucose Level 97 mg/dL (65-120); Lipase 19 U/L (22-51); Sodium Level 136 mEq/L (135-145)
[2017-10-29 14:41] LABS: ALT/SGPT 11 IU/L (10-60); AST/SGOT 15 IU/L (10-42); Albumin 3.3 g/dL (3.2-5.5); Alkaline Phosphatase 47 IU/L (42-121); Amylase Level 91 U/L (28-100); BUN Blood Urea Nitrogen 18 mg/dL (6-20); Bilirubin Direct 0.1 mg/dL (0-0.2); Bilirubin Total 0.2 mg/dL (0.3-1.2); Protein, Total 7.2 g/dL (6.0-8.3)
--- NOTE | 2017-10-29 14:53 | EDPHYS ---
Physician Documentation [facility] Name: Sidra Hodges Age: 42 yrs Sex: Female : 1975 Arrival Date: 10/29/2017 Time: 12:00 Bed 26 Private MD: ED Physician Pascual Lundy HPI: 10/29 13:41 This 42 yrs old Female presents to ER via Ambulatory with complaints of ry Abdominal Pain. 13:41 The patient presents with abdominal pain. Onset: The symptoms/episode began/occurred 2 ry day(s) ago. The symptoms do not radiate. Associated signs and symptoms: none. The symptoms are described as vague. Severity of pain: At its worst the pain was mild in the emergency department the pain is unchanged. The patient has not experienced similar symptoms in the past. 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 - Family history:: not pertinent. - Social history:: Smoking status: Patient/guardian denies using tobacco. ROS: 13:41 Constitutional: Negative for fever, chills, and weight loss, Eyes: Negative for injury, ry pain, redness, and discharge, ENT: Negative for injury, pain, and discharge, Neck: Negative for injury, pain, and swelling, Cardiovascular: Negative for chest pain, palpitations, and edema, Respiratory: Negative for shortness of breath, cough, wheezing, and pleuritic chest pain, Back: Negative for injury and pain, : Negative for injury, bleeding, discharge, and swelling, MS/Extremity: Negative for injury and deformity, Skin: Negative for injury, rash, and discoloration, Neuro: Negative for headache, weakness, numbness, tingling, and seizure, Psych: Negative for depression, anxiety, suicide ideation, homicidal ideation, and hallucinations, Allergy/Immunology: Negative for hives, rash, and allergies, Endocrine: Negative for neck swelling, polydipsia, polyuria, polyphagia, and marked weight changes, Hematologic/Lymphatic: Negative for swollen nodes, abnormal bleeding, and unusual bruising. 13:41 Abdomen/GI: Positive for abdominal pain, of the right upper quadrant, left upper quadrant, right lower quadrant and left lower quadrant. Exam: 13:41 Constitutional: This is a well developed, well nourished patient who is awake, alert, ry and in no acute distress. Head/Face: Normocephalic, atraumatic. Eyes: Pupils equal round and reactive to light, extra-ocular motions intact. Lids and lashes normal. Conjunctiva and sclera are non-icteric and not injected. Cornea within normal limits. Periorbital areas with no swelling, redness, or edema. ENT: Nares patent. No nasal discharge, no septal abnormalities noted. Tympanic membranes are normal and external auditory canals are clear. Oropharynx with no redness, swelling, or masses, exudates, or evidence of obstruction, uvula midline. Mucous membranes moist. Neck: Trachea midline, no thyromegaly or masses palpated, and no cervical lymphadenopathy. Supple, full range of motion without nuchal rigidity, or vertebral point tenderness. No Meningismus. Chest/axilla: Normal chest wall appearance and motion. Nontender with no deformity. No lesions are appreciated. Cardiovascular: Regular rate and rhythm with a normal S1 and S2. No gallops, murmurs, or rubs. Normal PMI, no JVD. No pulse deficits. Respiratory: Lungs have equal breath sounds bilaterally, clear to auscultation and percussion. No rales, rhonchi or wheezes noted. No increased work of breathing, no retractions or nasal flaring. Abdomen/GI: Soft, non-tender, with normal bowel sounds. No distension or tympany. No guarding or rebound. No evidence of tenderness throughout. Back: No spinal tenderness. No costovertebral tenderness. Full range of motion. Female : Normal external genitalia. Skin: Warm, dry with normal turgor. Normal color with no rashes, no lesions, and no evidence of cellulitis. MS/ Extremity: Pulses equal, no cyanosis. Neurovascular intact. Full, normal range of motion. Neuro: Awake and alert, GCS 15, oriented to person, place, time, and situation. Cranial nerves II-XII grossly intact. Motor strength 5/5 in all extremities. Sensory grossly intact. Cerebellar exam normal. Normal gait. Psych: Awake, alert, with orientation to person, place and time. Behavior, mood, and affect are within normal limits. Vital Signs: 12:03 BP 131 / 96; Pulse 74; Resp 18; Temp 97.8(TE); Pulse Ox 100% on R/A; Weight 70.31 kg; hj Height 5 ft. 2 in. (157.48 cm); Pain 10/10; 13:00 BP 112 / 72; Pulse 75; Resp 18; Pulse Ox 99% ; aj1 14:55 BP 121 / 72 Supine; Pulse 64 LA; iw 14:58 BP 122 / 82 Sitting; Pulse 65; iw 15:05 BP 110 / 72 Standing; Pulse 70; iw 12:03 Body Mass Index 28.35 (70.31 kg, 157.48 cm) MDM: 13:28 Patient medically screened. [facility] 13:41 Data reviewed: vital signs, nurses notes, lab test result(s). [facility] 10/29 13:37 Order name: Amylase, Serum; Complete Time: 14:51 [facility] 10/29 13:37 Order name: Basic Metabolic Panel; Complete Time: 14:51 [facility] 10/29 13:37 Order name: CBC with Diff; Complete Time: 14:33 [facility] 10/29 13:37 Order name: Creatinine for Radiology; Complete Time: 14:40 [facility] 10/29 13:37 Order name: Hepatic Function; Complete Time: 14:51 [facility] 10/29 13:37 Order name: Lipase; Complete Time: 14:51 [facility] 10/29 13:37 Order name: Urine Test (obtain specimen); Complete Time: 14:54 [facility] 10/29 13:37 Order name: IV Saline Lock; Complete Time: 14:54 [facility] 10/29 13:37 Order name: Labs collected and sent; Complete Time: 14:15 [facility] 10/29 14:34 Order name: Urine Culture [facility] 10/29 15:04 Order name: Urine Dipstick--Ancillary (enter results) ag 10/29 15:04 Order name: Urine --Ancillary (enter results) 10/29 13:37 Order name: Urine Dipstick-Ancillary (obtain specimen); Complete Time: 14:15 [facility] Administered Medications: 15:09 Not Given (Physician Discretion): NS 0.9% 500 ml IV at bolus once iw Disposition: 10/29/17 14:52 Discharged to Home. Impression: Abdominal tenderness, Functional dyspepsia, Bipolar disorder. - Condition is Stable. - Discharge Instructions: Abdominal Pain, Adult, Abdominal Pain, Adult, [id number], Indigestion, [id number]. - Prescriptions for Bentyl 20 mg Oral Tablet - take 1 tablet by ORAL route every 6 hours As needed; 20 tablet. Pepcid 20 mg Oral Tablet - take 1 tablet by ORAL route every 12 hours for 10 days; 20 tablet. - Medication Reconciliation Form, Thank You Letter, Antibiotic Education, Prescription Opioid Use form. - Follow up: Private Physician; When: 2 - 3 days; Reason: Recheck today's complaints, Continuance of care, Re-evaluation by your physician. Follow up: Gena Yang; When: 2 - 3 days; Reason: Recheck today's complaints, Re-evaluation by your physician. - Problem is new. - Symptoms have improved. Signatures: Dispatcher [employer] [facility] Pascual Lundy MD MD cha Williams, Irene, RN RN iw Joaquin, Henry, RN RN Corrections: (The following items were deleted from the chart) 14:53 14:52 10/29/2017 14:52 Discharged to Home. Impression: Abdominal tenderness; Functional ry dyspepsia. Condition is Stable. Discharge Instructions: Abdominal Pain, Adult, Abdominal Pain, Adult, [id number]. Prescriptions for Bentyl 20 mg Oral Tablet - take 1 tablet by ORAL route every 6 hours As needed; 20 tablet, Pepcid 20 mg Oral Tablet - take 1 tablet by ORAL route every 12 hours for 10 days; 20 tablet. and Forms are Medication Reconciliation Form, Thank You Letter, Antibiotic Education, Prescription Opioid Use. Follow up: Private Physician; When: 2 - 3 days; Reason: Recheck today's complaints, Continuance of care, Re-evaluation by your physician. Follow up: Gena Yang; When: 2 - 3 days; Reason: Recheck today's complaints, Re-evaluation by your physician. Problem is new. Symptoms have improved. [facility] 15:09 14:53 10/29/2017 14:52 Discharged to Home. Impression: Abdominal tenderness; Functional iw dyspepsia; Bipolar disorder. Condition is Stable. Discharge Instructions: Abdominal Pain, Adult, Abdominal Pain, Adult, [id number]. Prescriptions for Bentyl 20 mg Oral Tablet - take 1 tablet by ORAL route every 6 hours As needed; 20 tablet, Pepcid 20 mg Oral Tablet - take 1 tablet by ORAL route every 12 hours for 10 days; 20 tablet. and Forms are Medication Reconciliation Form, Thank You Letter, Antibiotic Education, Prescription Opioid Use. Follow up: Private Physician; When: 2 - 3 days; Reason: Recheck today's complaints, Continuance of care, Re-evaluation by your physician. Follow up: Gena Yang; When: 2 - 3 days; Reason: Recheck today's complaints, Re-evaluation by your physician. Problem is new. Symptoms have improved. ry
--- NOTE | 2017-10-29 14:53 | ER ---
Nurse's Notes [facility] Name: Sidra Hodges Age: 42 yrs Sex: Female : 1975 Arrival Date: 10/29/2017 Time: 12:00 Bed 26 Private MD: Diagnosis: Abdominal tenderness;Functional dyspepsia;Bipolar disorder Presentation: 10/29 12:01 Presenting complaint: EMS states: pt was picked up at [facility] in [place]; denies hj diarrhea, nausea and vomiting;. Transition of care: patient was not received from another setting of care. Onset of symptoms was October 29, 2017. Initial Sepsis Screen: Does the patient meet any 2 criteria? No. Patient's initial sepsis screen is negative. Does the patient have a suspected source of infection? No. Patient's initial sepsis screen is negative. Care prior to arrival: None. 12:01 Method Of Arrival: Ambulatory 12:01 Acuity: CARMITA 3 hj Triage Assessment: 12:02 General: Appears in no apparent distress. uncomfortable, Behavior is calm, cooperative, hj appropriate for age. Pain: Complains of pain in abdomen. GI: Reports lower abdominal pain, upper abdominal pain. 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 - Family history:: not pertinent. - Social history:: Smoking status: Patient/guardian denies using tobacco. Screenin:00 Abuse screen: Denies threats or abuse. Denies injuries from another. Nutritional aj1 screening: No deficits noted. Tuberculosis screening: No symptoms or risk factors identified. 15:08 Fall Risk None identified. iw Assessment: 12:02 GI: Bowel sounds Abd is soft. hj 14:00 General: Appears in no apparent distress. comfortable, Behavior is calm, cooperative, aj1 appropriate for age. Pain: Complains of pain in abdomen diffusely Pain does not radiate. Pain currently is 8 out of 10 on a pain scale. Neuro: Level of Consciousness is awake, alert, obeys commands, Oriented to person, place, time, situation, Speech is normal, Facial symmetry appears normal. Cardiovascular: Patient's skin is warm and dry. Respiratory: Airway is patent Respiratory effort is even, unlabored, Respiratory pattern is regular, symmetrical. GI: Abdomen is non-distended, Bowel sounds present X 4 quads. Abd is soft and non tender X 4 quads. Patient currently denies diarrhea, nausea, vomiting. : No signs and/or symptoms were reported regarding the genitourinary system. EENT: No signs and/or symptoms were reported regarding the EENT system. Derm: No signs and/or symptoms reported regarding the dermatologic system. Skin is pink, warm \T\ dry. normal. Musculoskeletal: No signs and/or symptoms reported regarding the musculoskeletal system. Circulation, motion, and sensation intact. 15:03 Reassessment: Notified Dr. Lundy that IV fluids have not been started yet, due to [facility] being unable to obtain IV access at this time. Order received from Dr. Lundy to obtain orthostatic vital signs and discharge patient without IV fluids if orthostatics are negative. 15:03 Reassessment: Patient appears in no apparent distress at this time. No changes from [facility] previously documented assessment. Patient and/or family updated on plan of care and expected duration. Pain level reassessed. Patient is alert, oriented x 3, equal unlabored respirations, skin warm/dry/pink. Vital Signs: 12:03 BP 131 / 96; Pulse 74; Resp 18; Temp 97.8(TE); Pulse Ox 100% on R/A; Weight 70.31 kg; Height 5 ft. 2 in. (157.48 cm); Pain 10/10; 13:00 BP 112 / 72; Pulse 75; Resp 18; Pulse Ox 99% ; aj1 14:55 BP 121 / 72 Supine; Pulse 64 LA; iw 14:58 BP 122 / 82 Sitting; Pulse 65; iw 15:05 BP 110 / 72 Standing; Pulse 70; iw 12:03 Body Mass Index 28.35 (70.31 kg, 157.48 cm) ED Course: 12:00 Patient arrived in ED. 12:02 Triage completed. hj 12:02 Arm band placed on right wrist. hj 13:00 Patient has correct armband on for positive identification. Bed in low position. Call aj1 light in reach. Side rails up X 1. 13:00 No provider procedures requiring assistance completed. aj1 13:28 Pascual Lundy MD is Attending Physician. ry 14:15 Missed attempt(s): 20 gauge Bleeding controlled, band aid applied, catheter tip intact. aj1 14:23 Nyla Luz, GERONIMO is Primary Nurse. aj1 14:52 Gena Yang MD is Referral Physician. ry 15:08 IV discontinued, intact, bleeding controlled, No redness/swelling at site. Pressure iw dressing applied. Administered Medications: 15:09 Not Given (Physician Discretion): NS 0.9% 500 ml IV at bolus once iw Outcome: 14:52 Discharge ordered by . ry 15:08 Discharged to home ambulatory. iw 15:08 Condition: good 15:08 Discharge instructions given to patient, Instructed on discharge instructions, follow up and referral plans. medication usage, Demonstrated understanding of instructions, follow-up care, medications, Prescriptions given X 2. 15:09 Patient left the ED. iw Signatures: Nyla Luz, RN RN aj1 Pascual Lundy MD MD cha Williams, Irene, RN RN Hi Rojo RN RN Corrections: (The following items were deleted from the chart) 12:05 12:03 Pulse 74bpm; Resp 18bpm; Pulse Ox 100% RA; Temp 97.8F Temporal; 70.31 kg; Height hj 5 ft. 2 in.; BMI: 28.3; Pain 10/10; hj 15:08 13:05 BP 110 / 72 Standing; Pulse 70bpm; iw iw
[2017-10-29 15:07] LABS: Urine Blood NEGATIVE (NEG); Urine Glucose NEGATIVE (NEG); Urine Protein NEGATIVE (NEG); Urine pH 6.5 (5.0-7.0)
== END 2017-10-29 15:09 | disposition home or self-care (01) ==
LOC: ER 11:57
DX: K30 Functional dyspepsia (principal); F31.9 Bipolar disorder, unspecified
CPT/HCPCS: 36415; 80048; 80076; 81003; 81025; 82150; 83690; 85025; 87086; 87088; 99282

== ENCOUNTER 2017-10-30 03:22 | Emergency (ER) | payer SELFPAY ==
--- NOTE | 2017-10-30 06:21 | ER ---
Nurse's Notes [facility] Name: Sidra Hodges Age: 42 yrs Sex: Female : 1975 Arrival Date: 10/30/2017 Time: 03:23 Bed 7 Private MD: Diagnosis: Chest pain. Possible seizure Presentation: 10/30 03:24 Presenting complaint: EMS states: EMS toned out for a seizure. Pt was AOx4 on arrival. tl2 No signs of seizure or post ictal behavior. Pt ambulatory to room. Transition of care: patient was not received from another setting of care. Onset of symptoms was October 30, 2017. Initial Sepsis Screen: Does the patient meet any 2 criteria? No. Patient's initial sepsis screen is negative. Does the patient have a suspected source of infection? No. Patient's initial sepsis screen is negative. Care prior to arrival: None. 03:24 Method Of Arrival: EMS: [facility] tl2 03:24 Acuity: CARMITA 4 tl2 Triage Assessment: 03:25 General: Appears in no apparent distress. comfortable, Behavior is calm, cooperative, tl2 appropriate for age. Pain: Denies pain. Neuro: Level of Consciousness is awake, alert, obeys commands, Oriented to person, place, time, situation. Cardiovascular: Denies chest pain. Respiratory: Airway is patent Respiratory effort is even, unlabored, Respiratory pattern is regular, symmetrical. GI: No signs and/or symptoms were reported involving the gastrointestinal system. : No signs and/or symptoms were reported regarding the genitourinary system. Derm: Skin is pink, warm \T\ dry. Historical: - Allergies: 03:25 NKA; tl2 - Home Meds: 03:25 Abilify 10 mg Oral tab 1 tab once daily [Active]; Depakote 500 mg Oral chew 1 tab in tl2 the morning and 2 tabs nightly [Active]; oxcarbazepine 300 mg Oral tab 1 tab 2 times per day [Active]; - PMHx: 03:25 Anxiety; Bipolar disorder; Depression; epilepsy; hemorrhoids; tl2 - Immunization history:: Adult Immunizations up to date. - Social history:: Smoking status: Patient/guardian denies using tobacco. Screenin:27 Abuse screen: Denies threats or abuse. Nutritional screening: No deficits noted. tl2 Tuberculosis screening: No symptoms or risk factors identified. Fall Risk None identified. Assessment: 03:27 General: see triage assessment. tl2 04:38 Reassessment: Patient appears in no apparent distress at this time. Patient and/or mg2 family updated on plan of care and expected duration. Pain level reassessed. patient sleeping quietly on bed. still awaiting to be seen by provider. 04:39 Reassessment: Pt continues to await initial assessment from ERP. MD aware of pt. aa1 06:01 Reassessment: Patient appears in no apparent distress at this time. patient sleeping mg2 comfortably on bed. 06:32 Reassessment: Pt verbalized understanding of discharge instructions, need for follow up.tl2 Vital Signs: 03:25 BP 130 / 86; Pulse 78; Resp 18; Temp 98.7(O); Pulse Ox 100% on R/A; Weight 90.72 kg; tl2 Height 5 ft. 3 in. (160.02 cm); Pain 0/10; 04:37 BP 99 / 65; Pulse 78; Resp 18; Pulse Ox 100% on R/A; Pain 0/10; mg2 06:02 BP 112 / 73; Pulse 65; Resp 18; Pulse Ox 100% ; Pain 0/10; mg2 03:25 Body Mass Index 35.43 (90.72 kg, 160.02 cm) tl2 Ingrid Coma Score: 03:25 Eye Response: spontaneous(4). Verbal Response: oriented(5). Motor Response: obeys tl2 commands(6). Total: 15. ED Course: 03:23 Patient arrived in ED. tl2 03:25 Triage completed. tl2 03:25 Arm band placed on right wrist. tl2 03:27 Patient has correct armband on for positive identification. Bed in low position. Call tl2 light in reach. Side rails up X 1. 03:27 No provider procedures requiring assistance completed. tl2 03:31 Kojo Sarmiento, GERONIMO is Primary Nurse. mg2 04:44 Jeffrey Herr MD is Attending Physician. pkl 05:23 Troponin (emerg Dept Use Only) Sent. tl2 06:32 Patient did not have IV access during this emergency room visit. tl2 Administered Medications: No medications were administered Outcome: 06:20 Discharge ordered by . pkl 06:32 Discharged to home ambulatory. tl2 06:32 Condition: stable 06:32 Discharge instructions given to patient, Instructed on discharge instructions, follow up and referral plans. 06:34 Patient left the ED. tl2 Signatures: Yue Rueda RN RN aa1 Jeffrey Herr MD MD pkl Knox, Taylor, RN RN tl2 Kojo Sarmienot RN RN mg2 Corrections: (The following items were deleted from the chart) 04:39 04:38 Reassessment: Patient appears in no apparent distress at this time. Patient mg2 and/or family updated on plan of care and expected duration. Pain level reassessed. Patient is alert, oriented x 3, equal unlabored respirations, skin warm/dry/pink. mg2
--- NOTE | 2017-10-30 06:21 | EDPHYS ---
Physician Documentation [facility] Name: Sidra Hodges Age: 42 yrs Sex: Female : 1975 Arrival Date: 10/30/2017 Time: 03:23 Bed 7 Private MD: ED Physician Jeffrey Herr HPI: 10/30 04:44 This 42 yrs old Female presents to ER via EMS with complaints of Probable pkl Seizure. 04:50 The patient presents after having a possible seizure episode. Seizure onset: just prior pkl to arrival. The patient has been recently seen at the [facility] Emergency Department, yesterday. Patient said she is having chest pain earlier. Historical: - Allergies: 03:25 NKA; tl2 - Home Meds: 03:25 Abilify 10 mg Oral tab 1 tab once daily [Active]; Depakote 500 mg Oral chew 1 tab in tl2 the morning and 2 tabs nightly [Active]; oxcarbazepine 300 mg Oral tab 1 tab 2 times per day [Active]; - PMHx: 03:25 Anxiety; Bipolar disorder; Depression; epilepsy; hemorrhoids; tl2 - Immunization history:: Adult Immunizations up to date. - Social history:: Smoking status: Patient/guardian denies using tobacco. ROS: 04:50 Eyes: Negative for injury, pain, redness, and discharge, ENT: Negative for injury, pkl pain, and discharge, Neck: Negative for injury, pain, and swelling. 04:50 Cardiovascular: Positive for chest pain. 04:50 Respiratory: Negative for cough, shortness of breath. 04:50 Abdomen/GI: Negative for abdominal pain, nausea, vomiting, and diarrhea. 04:50 Back: Negative for acute changes. 04:50 : Negative for urinary symptoms. 04:50 MS/extremity: Negative for acute changes. 04:50 Skin: Negative for rash. 04:50 Neuro: Negative for altered mental status. 04:52 Neuro: Positive for Possible seizures. pkl Exam: 04:52 Head/Face: Normocephalic, atraumatic. Eyes: Pupils equal round and reactive to light, pkl extra-ocular motions intact. Lids and lashes normal. Conjunctiva and sclera are non-icteric and not injected. Cornea within normal limits. Periorbital areas with no swelling, redness, or edema. ENT: Nares patent. No nasal discharge, no septal abnormalities noted. Tympanic membranes are normal and external auditory canals are clear. Oropharynx with no redness, swelling, or masses, exudates, or evidence of obstruction, uvula midline. Mucous membranes moist. Neck: Trachea midline, no thyromegaly or masses palpated, and no cervical lymphadenopathy. Supple, full range of motion without nuchal rigidity, or vertebral point tenderness. No Meningismus. Chest/axilla: Normal chest wall appearance and motion. Nontender with no deformity. No lesions are appreciated. Cardiovascular: Regular rate and rhythm with a normal S1 and S2. No gallops, murmurs, or rubs. Normal PMI, no JVD. No pulse deficits. Respiratory: Lungs have equal breath sounds bilaterally, clear to auscultation and percussion. No rales, rhonchi or wheezes noted. No increased work of breathing, no retractions or nasal flaring. Abdomen/GI: Soft, non-tender, with normal bowel sounds. No distension or tympany. No guarding or rebound. No evidence of tenderness throughout. Back: No spinal tenderness. No costovertebral tenderness. Full range of motion. Skin: Warm, dry with normal turgor. Normal color with no rashes, no lesions, and no evidence of cellulitis. MS/ Extremity: Pulses equal, no cyanosis. Neurovascular intact. Full, normal range of motion. Neuro: Awake and alert, GCS 15, oriented to person, place, time, and situation. Cranial nerves II-XII grossly intact. Motor strength 5/5 in all extremities. Sensory grossly intact. Cerebellar exam normal. Normal gait. Vital Signs: 03:25 BP 130 / 86; Pulse 78; Resp 18; Temp 98.7(O); Pulse Ox 100% on R/A; Weight 90.72 kg; tl2 Height 5 ft. 3 in. (160.02 cm); Pain 0/10; 04:37 BP 99 / 65; Pulse 78; Resp 18; Pulse Ox 100% on R/A; Pain 0/10; mg2 06:02 BP 112 / 73; Pulse 65; Resp 18; Pulse Ox 100% ; Pain 0/10; mg2 03:25 Body Mass Index 35.43 (90.72 kg, 160.02 cm) tl2 Ingrid Coma Score: 03:25 Eye Response: spontaneous(4). Verbal Response: oriented(5). Motor Response: obeys tl2 commands(6). Total: 15. MDM: 04:44 Patient medically screened. pkl 05:55 Data reviewed: vital signs, nurses notes, lab test result(s), EKG. pkl 10/30 04:49 Order name: Troponin (emerg Dept Use Only); Complete Time: 05:53 pkl 10/30 04:49 Order name: EKG; Complete Time: 04:49 pkl 10/30 05:23 Order name: EKG - Nurse/Tech; Complete Time: 05:23 tl2 Administered Medications: No medications were administered Disposition: 10/30/17 06:20 Discharged to Home. Impression: Chest pain. Possible seizure. - Condition is Stable. - Medication Reconciliation Form, Thank You Letter, Antibiotic Education, Prescription Opioid Use form. - Follow up: Private Physician; When: 2 - 3 days; Reason: Re-evaluation by your physician. - Problem is new. - Symptoms have improved. Signatures: Dispatcher [employer] EDKS Jeffrey Herr MD MD pkl Valentina Hoffman RN RN tl2 Corrections: (The following items were deleted from the chart) 06:34 06:20 10/30/2017 06:20 Discharged to Home. Impression: Chest pain. Possible seizure. tl2 Condition is Stable. Forms are Medication Reconciliation Form, Thank You Letter, Antibiotic Education, Prescription Opioid Use. Follow up: Private Physician; When: 2 - 3 days; Reason: Re-evaluation by your physician. Problem is new. Symptoms have improved. pkl
--- NOTE | 2017-10-30 07:43 | EKG ---
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
--- NOTE | 2017-10-30 12:00 | EKG ---
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
== END 2017-10-30 06:34 | disposition home or self-care (01) ==
LOC: ER 03:22
DX: R07.9 Chest pain, unspecified (principal); G40.802 Other epilepsy, not intractable, without status epilepticus; F31.9 Bipolar disorder, unspecified; F32.9 Major depressive disorder, single episode, unspecified
CPT/HCPCS: 36415; 84484; 93005; 99283

== ENCOUNTER 2017-12-03 16:26 | Emergency (ER) | payer SELFPAY ==
--- NOTE | 2017-12-03 18:21 | EDPHYS ---
Physician Documentation [facility] Name: Sidra Hodges Age: 42 yrs Sex: Female : 1975 Arrival Date: 12/03/2017 Time: 16:32 Bed Treatment Private MD: None, None ED Physician Pascual Lundy HPI: 12/03 19:45 This 42 yrs old Female presents to ER via EMS with complaints of laceration pm1 third right finger. 19:45 Onset: The symptoms/episode began/occurred today. Associated signs and symptoms: pm1 Pertinent negatives: numbness or tingling. Modifying factors: The patient symptoms are alleviated by bandaid, the patient symptoms are aggravated by nothing. Patient presenting to the ER with small laceration to the tip of her 3rd right finger. Not bleeding and covered with bandaid. 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 - Social history:: Smoking status: Patient/guardian denies using tobacco. - Ebola Screening: : No symptoms or risks identified at this time. ROS: 19:45 Constitutional: Negative for fever, chills, and weight loss, Eyes: Negative for injury, pm1 pain, redness, and discharge, ENT: Negative for injury, pain, and discharge, Neck: Negative for injury, pain, and swelling, Cardiovascular: Negative for chest pain, palpitations, and edema, Respiratory: Negative for shortness of breath, cough, wheezing, and pleuritic chest pain, Abdomen/GI: Negative for abdominal pain, nausea, vomiting, diarrhea, and constipation, Back: Negative for injury and pain, : Negative for injury, bleeding, discharge, and swelling, MS/Extremity: Negative for injury and deformity. 19:45 Skin: Positive for laceration(s), of the tip of right third finger. 19:45 Neuro: Negative for headache, weakness, numbness, tingling, and seizure. pm1 Exam: 19:45 Constitutional: This is a well developed, well nourished patient who is awake, alert, pm1 and in no acute distress. Head/Face: Normocephalic, atraumatic. Eyes: Pupils equal round and reactive to light, extra-ocular motions intact. Lids and lashes normal. Conjunctiva and sclera are non-icteric and not injected. Cornea within normal limits. Periorbital areas with no swelling, redness, or edema. ENT: Nares patent. No nasal discharge, no septal abnormalities noted. Tympanic membranes are normal and external auditory canals are clear. Oropharynx with no redness, swelling, or masses, exudates, or evidence of obstruction, uvula midline. Mucous membranes moist. Neck: Trachea midline, no thyromegaly or masses palpated, and no cervical lymphadenopathy. Supple, full range of motion without nuchal rigidity, or vertebral point tenderness. No Meningismus. Chest/axilla: Normal chest wall appearance and motion. Nontender with no deformity. No lesions are appreciated. Cardiovascular: Regular rate and rhythm with a normal S1 and S2. No gallops, murmurs, or rubs. Normal PMI, no JVD. No pulse deficits. Respiratory: Lungs have equal breath sounds bilaterally, clear to auscultation and percussion. No rales, rhonchi or wheezes noted. No increased work of breathing, no retractions or nasal flaring. Abdomen/GI: Soft, non-tender, with normal bowel sounds. No distension or tympany. No guarding or rebound. No evidence of tenderness throughout. Back: No spinal tenderness. No costovertebral tenderness. Full range of motion. 19:45 MS/ Extremity: Pulses equal, no cyanosis. Neurovascular intact. Full, normal range of motion. 19:45 Skin: Appearance: normal except for affected area, injury, laceration(s), the wound is approximately 0.5 cm(s), with a depth of 0.1 cm(s), of the Tip of right third finger. No nail injury, that can be described as clean, no foreign body. Vital Signs: 16:36 BP 125 / 72; Pulse 78; Resp 18; Temp 97.8; Pulse Ox 99% ; sv 18:43 BP 132 / 87; Pulse 77; Resp 16; Pulse Ox 100% on R/A; mb3 MDM: 16:50 Patient medically screened. pm1 18:17 Data reviewed: vital signs. Data interpreted: Pulse oximetry: on room air is 99 %. pm1 Interpretation: normal. Counseling: I had a detailed discussion with the patient and/or guardian regarding: the historical points, exam findings, and any diagnostic results supporting the discharge/admit diagnosis, the need for outpatient follow up, to return to the emergency department if symptoms worsen or persist or if there are any questions or concerns that arise at home. 18:20 ED course: superficial laceration/abrasion. No need for closure. pm1 12/03 18:22 Order name: Wound Care pm1 Administered Medications: No medications were administered Disposition: 12/04 15:28 Co-signature as Attending Physician, Pascual Lundy MD I agree with the assessment and ry plan of care. Disposition: 12/03/17 18:20 Discharged to Home. Impression: Laceration without foreign body of right hand - 3rd digit. - Condition is Stable. - Discharge Instructions: Laceration Care, Adult. - Medication Reconciliation Form, Thank You Letter, Antibiotic Education form. - Follow up: Emergency Department; When: As needed; Reason: Worsening of condition. Follow up: Private Physician; When: As needed; Reason: Recheck today's complaints, Continuance of care, Re-evaluation by your physician. - Problem is new. - Symptoms have improved. Signatures: Samantha Pitts RN RN sv Anderson, Corey, MD MD cha Marinas, Patrick, STEVEDORING SUPERINTENDENT STEVEDORING SUPERINTENDENT pm1 Garrett Caceres RN RN mb3 Corrections: (The following items were deleted from the chart) 12/03 18:21 18:20 12/03/2017 18:20 Discharged to Home. Impression: Laceration without foreign body pm1 of right hand. Condition is Stable. Forms are Medication Reconciliation Form, Thank You Letter, Antibiotic Education, Prescription Opioid Use. Follow up: Emergency Department; When: As needed; Reason: Worsening of condition. Follow up: Private Physician; When: As needed; Reason: Recheck today's complaints, Continuance of care, Re-evaluation by your physician. Problem is new. Symptoms have improved. pm1 18:47 18:21 12/03/2017 18:20 Discharged to Home. Impression: Laceration without foreign body mb3 of right hand - 3rd digit. Condition is Stable. Forms are Medication Reconciliation Form, Thank You Letter, Antibiotic Education, Prescription Opioid Use. Follow up: Emergency Department; When: As needed; Reason: Worsening of condition. Follow up: Private Physician; When: As needed; Reason: Recheck today's complaints, Continuance of care, Re-evaluation by your physician. Problem is new. Symptoms have improved. pm1
--- NOTE | 2017-12-03 18:21 | ER ---
Nurse's Notes [facility] Name: Sidra Hodges Age: 42 yrs Sex: Female : 1975 Arrival Date: 12/03/2017 Time: 16:32 Bed Treatment Private MD: None, None Diagnosis: Laceration without foreign body of right hand-3rd digit Presentation: 12/03 16:32 Presenting complaint: EMS states: pain all over and right 3rd digit laceration. sv Transition of care: patient was not received from another setting of care. Onset of symptoms was December 03, 2017. Care prior to arrival: None. 16:32 Method Of Arrival: EMS: [facility] sv 16:32 Acuity: CARMITA 4 sv 18:46 Risk Assessment: Do you want to hurt yourself or someone else? Patient reports no mb3 desire to harm self or others. Initial Sepsis Screen: Does the patient meet any 2 criteria? No. Patient's initial sepsis screen is negative. Does the patient have a suspected source of infection? No. Patient's initial sepsis screen is negative. 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 - Social history:: Smoking status: Patient/guardian denies using tobacco. - Ebola Screening: : No symptoms or risks identified at this time. Screenin:44 Abuse screen: Denies threats or abuse. Nutritional screening: No deficits noted. mb3 Tuberculosis screening: No symptoms or risk factors identified. Fall Risk None identified. Assessment: 18:42 General: Appears in no apparent distress. comfortable, Behavior is calm, cooperative, mb3 appropriate for age. Pain: Complains of pain in palmar aspect of distal phalanx of left index finger and palmar aspect of proximal phalanx of left thumb. Neuro: No deficits noted. Cardiovascular: No deficits noted. Respiratory: No deficits noted. 18:43 Injury Description: Laceration sustained to palmar aspect of distal phalanx of left mb3 index finger is clean, superficial, not bleeding. Vital Signs: 16:36 BP 125 / 72; Pulse 78; Resp 18; Temp 97.8; Pulse Ox 99% ; sv 18:43 BP 132 / 87; Pulse 77; Resp 16; Pulse Ox 100% on R/A; mb3 ED Course: 16:32 Patient arrived in ED. mr 16:32 None, None is Private Physician. mr 16:33 Triage completed. sv 16:33 Arm band placed on right wrist. sv 16:39 Artur Watkins PA is PHCP. [facility] 16:39 Yong Banks MD is Attending Physician. [facility] 16:42 Garrett Caceres, GERONIMO is Primary Nurse. mb3 16:47 Guero Yates NP is PHCP. pm1 16:47 Pascual Lundy MD is Attending Physician. pm1 18:45 Patient has correct armband on for positive identification. mb3 18:45 No provider procedures requiring assistance completed. Patient did not have IV access mb3 during this emergency room visit. Administered Medications: No medications were administered Outcome: 18:20 Discharge ordered by MD. pm1 18:45 Discharged to home ambulatory. mb3 18:45 Condition: stable 18:45 Discharge instructions given to patient, Instructed on discharge instructions, follow up and referral plans. Demonstrated understanding of instructions, follow-up care. 18:47 Patient left the ED. mb3 Signatures: Samantha Pitts RN RN Artur Watkins PA PA jmm Rivera, Maria mr Guero Yates, ALEXEI INSOLE RASPER pm1 Garrett Caceres RN RN mb3
== END 2017-12-03 18:47 | disposition home or self-care (01) ==
LOC: ER 16:26
DX: S61.212A Laceration without foreign body of right middle finger without damage to nail, initial encounter (principal); X58.XXXA Exposure to other specified factors, initial encounter; Y93.9 Activity, unspecified; Y92.9 Unspecified place or not applicable; Y99.9 Unspecified external cause status
CPT/HCPCS: 99283

== ENCOUNTER 2017-12-13 18:41 | Emergency (ER) | payer SELFPAY ==
--- NOTE | 2017-12-13 19:49 | ER ---
Nurse's Notes [facility] Name: Sidra Hodges Age: 42 yrs Sex: Female : 1975 Arrival Date: 12/13/2017 Time: 18:44 Bed 6 Private MD: None, None Diagnosis: Hemorrhoids and perianal venous thrombosis Presentation: 12/13 18:50 Presenting complaint: Patient states: hemorrhoids bleeding and abd pain. Transition of sv care: patient was not received from another setting of care. Onset of symptoms was December 11, 2017. Risk Assessment: Do you want to hurt yourself or someone else?. Care prior to arrival: None. 18:50 Method Of Arrival: Ambulatory sv 18:50 Acuity: CARMITA 3 sv 19:36 Initial Sepsis Screen: Does the patient meet any 2 criteria? No. Patient's initial ea sepsis screen is negative. Does the patient have a suspected source of infection? No. Patient's initial sepsis screen is negative. Historical: - Allergies: 18:51 NKA; sv - PMHx: 18:51 Anxiety; Bipolar disorder; Depression; epilepsy; hemorrhoids; sv - Immunization history:: Adult Immunizations up to date. - Social history:: Smoking status: Patient/guardian denies using tobacco. - Ebola Screening: : No symptoms or risks identified at this time. Screenin:35 Abuse screen: Denies threats or abuse. Nutritional screening: No deficits noted. ea Tuberculosis screening: No symptoms or risk factors identified. Fall Risk None identified. Assessment: 19:33 General: Appears uncomfortable, Behavior is calm, cooperative, appropriate for age. ea Pain: Complains of pain in rectal pain. Neuro: Level of Consciousness is awake, alert, obeys commands, Oriented to person, place, time, situation. Cardiovascular: Patient's skin is warm and dry. Respiratory: Airway is patent Respiratory effort is even, unlabored, Respiratory pattern is regular, symmetrical. GI: Abdomen is non-distended, Bowel sounds present X 4 quads. GI: Reports hemorrhoids. : No signs and/or symptoms were reported regarding the genitourinary system. EENT: No signs and/or symptoms were reported regarding the EENT system. Derm: Skin is pink, warm \T\ dry. Musculoskeletal: Circulation, motion, and sensation intact. 19:50 Reassessment: Patient and/or family updated on plan of care and expected duration. Pain ea level reassessed. Patient is alert, oriented x 3, equal unlabored respirations, skin warm/dry/pink. Discharge instructions given to patient, verbalized the understanding of instructions. Vital Signs: 18:51 BP 125 / 86; Pulse 86; Resp 18; Temp 97.8(TE); Pulse Ox 96% ; sv 19:36 BP 119 / 69; Pulse 80; Resp 18; Pulse Ox 97% on R/A; ea ED Course: 18:44 Patient arrived in ED. mr 18:44 None, None is Private Physician. mr 18:51 Triage completed. sv 18:51 Arm band placed on right wrist. sv 19:26 Kesha May, GERONIMO is Primary Nurse. ea 19:27 Tom Petersen MD is Attending Physician. gs 19:35 Patient has correct armband on for positive identification. Bed in low position. Call ea light in reach. Side rails up X 1. 19:48 Scott Franco MD is Referral Physician. gs 19:55 No provider procedures requiring assistance completed. Patient did not have IV access ea during this emergency room visit. Administered Medications: No medications were administered Outcome: 19:48 Discharge ordered by . gs 19:55 Discharged to home ambulatory. ea 19:55 Condition: good 19:55 Discharge instructions given to patient, Instructed on discharge instructions, follow up and referral plans. medication usage, Demonstrated understanding of instructions, follow-up care, medications, Prescriptions given X 1. 20:12 Patient left the ED. ea Signatures: Samantha Pitts RN RN sv Rivera, Maria mr Kesha May RN RN ea Starr, Gregory, MD MD gs
--- NOTE | 2017-12-13 19:49 | EDPHYS ---
Physician Documentation [facility] Name: Sidra Hodges Age: 42 yrs Sex: Female : 1975 Arrival Date: 12/13/2017 Time: 18:44 Bed 6 Private MD: None, None ED Physician Tom Petersen HPI: 12/13 19:46 This 42 yrs old Female presents to ER via Ambulatory with complaints of gs Hemorrhoids, Abdominal Pain. 19:46 The patient presents to the emergency department with pain in the rectal area, that is gs mild. Onset: The symptoms/episode began/occurred 1 month(s) ago, and became worse. Modifying factors: The symptoms are aggravated by bowel movement. Associate signs and symptoms: Pertinent negatives: abdominal pain, fever, lower GI bleeding. The patient has experienced similar episodes in the past, chronically. Historical: - Allergies: 18:51 NKA; sv - PMHx: 18:51 Anxiety; Bipolar disorder; Depression; epilepsy; hemorrhoids; sv - Immunization history:: Adult Immunizations up to date. - Social history:: Smoking status: Patient/guardian denies using tobacco. - Ebola Screening: : No symptoms or risks identified at this time. ROS: 19:46 All other systems are negative. gs Exam: 19:46 ENT: Nares patent. No nasal discharge, no septal abnormalities noted. Tympanic gs membranes are normal and external auditory canals are clear. Oropharynx with no redness, swelling, or masses, exudates, or evidence of obstruction, uvula midline. Mucous membranes moist. Cardiovascular: Regular rate and rhythm with a normal S1 and S2. No gallops, murmurs, or rubs. Normal PMI, no JVD. No pulse deficits. Respiratory: Lungs have equal breath sounds bilaterally, clear to auscultation and percussion. No rales, rhonchi or wheezes noted. No increased work of breathing, no retractions or nasal flaring. Abdomen/GI: Soft, non-tender, with normal bowel sounds. No distension or tympany. No guarding or rebound. No evidence of tenderness throughout. Skin: Warm, dry with normal turgor. Normal color with no rashes, no lesions, and no evidence of cellulitis. MS/ Extremity: Pulses equal, no cyanosis. Neurovascular intact. Full, normal range of motion. Neuro: Awake and alert, GCS 15, oriented to person, place, time, and situation. Cranial nerves II-XII grossly intact. Motor strength 5/5 in all extremities. Sensory grossly intact. Cerebellar exam normal. Normal gait. 19:46 Constitutional: The patient appears alert, awake. 19:46 Abdomen/GI: Rectal exam: hemorrhoid(s), external, with pain, without bleeding, without thrombosis, the exam is chaperoned by the nurse. Vital Signs: 18:51 BP 125 / 86; Pulse 86; Resp 18; Temp 97.8(TE); Pulse Ox 96% ; sv 19:36 BP 119 / 69; Pulse 80; Resp 18; Pulse Ox 97% on R/A; ea MDM: 19:43 Patient medically screened. 19:46 Data reviewed: vital signs, nurses notes. gs Administered Medications: No medications were administered Disposition: 12/13/17 19:48 Discharged to Home. Impression: Hemorrhoids and perianal venous thrombosis. - Condition is Stable. - Discharge Instructions: Hemorrhoids, [id number]. - Prescriptions for Anusol- HC 2.5 % Rectal Cream - Apply to affected area 1 application by TOPICAL route every 8 hours As needed; 30 gram. - Medication Reconciliation Form, Thank You Letter, Antibiotic Education, Prescription Opioid Use form. - Follow up: Scott Franco MD; When: 2 - 3 days; Reason: Re-evaluation by your physician. Signatures: Samanhta Pitts RN Kesha Lackey RN RN ea Starr, Gregory, MD MD Corrections: (The following items were deleted from the chart) 20:12 19:48 12/13/2017 19:48 Discharged to Home. Impression: Hemorrhoids and perianal venous ea thrombosis. Condition is Stable. Forms are Medication Reconciliation Form, Thank You Letter, Antibiotic Education, Prescription Opioid Use. Follow up: Scott Franco; When: 2 - 3 days; Reason: Re-evaluation by your physician.
== END 2017-12-13 20:12 | disposition home or self-care (01) ==
LOC: ER 18:41
DX: K64.9 Unspecified hemorrhoids (principal); K64.5 Perianal venous thrombosis
CPT/HCPCS: 99282

== ENCOUNTER 2018-01-10 12:17 | Emergency (ER) | payer SELFPAY ==
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
--- NOTE | 2018-01-10 14:17 | RAD REPORT ---
EXAM DESCRIPTION: RAD - Shoulder Left 2 View - 01/10/2018 1:52 pm CLINICAL HISTORY: Pain, trauma COMPARISON: July 2017 TECHNIQUE: Internal and external rotation views of the left shoulder were obtained. FINDINGS: There is no fracture or dislocation. AC joint is normal in appearance. Calcific tendinitis findings are again noted. Calcification pattern has not changed. Patient has a widened acromial tea ral joint space and may have joint laxity. No rib or parenchymal abnormality of the upper left chest. IMPRESSION: Negative two-view left shoulder examination for acute finding. Above detailed findings are stable from July 2017.
== END 2018-01-10 14:28 | disposition home or self-care (01) ==
LOC: ER 12:17
DX: S40.012A Contusion of left shoulder, initial encounter (principal); Y04.8XXA Assault by other bodily force, initial encounter; Y93.9 Activity, unspecified; Y92.9 Unspecified place or not applicable; Z72.0 Tobacco use
CPT/HCPCS: 99283

== ENCOUNTER 2018-01-20 01:45 | Emergency (ER) | payer SELFPAY ==
--- NOTE | 2018-01-20 01:57 | EDPHYS ---
Physician Documentation [facility] Name: Sidra Hodges Age: 42 yrs Sex: Female : 1975 Arrival Date: 01/20/2018 Time: 01:52 Bed 25 Private MD: ED Physician Tom Petersen HPI: 01/20 01:53 This 42 yrs old Female presents to ER via EMS with complaints of Mouth Injury. pm1 01:53 The patient presents with injury to mouth. The problem is located in the mouth. Onset: pm1 The symptoms/episode began/occurred just prior to arrival. Modifying factors: The symptoms are alleviated by nothing, the symptoms are aggravated by nothing. Associated signs and symptoms: The patient has no apparent associated signs or symptoms. Severity of symptoms: in the emergency department the symptoms have resolved. The patient has not recently seen a physician. Patient presenting with bite injury to the inside of her mouth. No injury to her tongue. Historical: - Allergies: 02:01 NKA; lp1 - Home Meds: 02:01 Abilify 10 mg Oral tab 1 tab once daily [Active]; Depakote 500 mg Oral chew 1 tab in lp1 the morning and 2 tabs nightly [Active]; oxcarbazepine 300 mg Oral tab 1 tab 2 times per day [Active]; - PMHx: 02:01 Anxiety; Bipolar disorder; Depression; epilepsy; hemorrhoids; lp1 - PSHx: 02:01 Unable to obtain; lp1 - Immunization history:: Adult Immunizations unknown. - Social history:: Smoking status: unknown. - Ebola Screening: : No symptoms or risks identified at this time. ROS: 02:02 Constitutional: Negative for fever, chills, and weight loss, Eyes: Negative for injury, pm1 pain, redness, and discharge. 02:02 Neck: Negative for injury, pain, and swelling, Cardiovascular: Negative for chest pain, palpitations, and edema, Respiratory: Negative for shortness of breath, cough, wheezing, and pleuritic chest pain, Abdomen/GI: Negative for abdominal pain, nausea, vomiting, diarrhea, and constipation, Back: Negative for injury and pain, : Negative for injury, bleeding, discharge, and swelling, MS/Extremity: Negative for injury and deformity, Skin: Negative for injury, rash, and discoloration, Neuro: Negative for headache, weakness, numbness, tingling, and seizure. 02:02 ENT: Negative for ear pain, sore throat, dental pain, difficulty swallowing, difficulty handling secretions. Exam: 02:02 Constitutional: This is a well developed, well nourished patient who is awake, alert, pm1 and in no acute distress. Head/Face: Normocephalic, atraumatic. Eyes: Pupils equal round and reactive to light, extra-ocular motions intact. Lids and lashes normal. Conjunctiva and sclera are non-icteric and not injected. Cornea within normal limits. Periorbital areas with no swelling, redness, or edema. 02:02 Neck: Trachea midline, no thyromegaly or masses palpated, and no cervical lymphadenopathy. Supple, full range of motion without nuchal rigidity, or vertebral point tenderness. No Meningismus. Chest/axilla: Normal chest wall appearance and motion. Nontender with no deformity. No lesions are appreciated. Cardiovascular: Regular rate and rhythm with a normal S1 and S2. No gallops, murmurs, or rubs. Normal PMI, no JVD. No pulse deficits. Respiratory: Lungs have equal breath sounds bilaterally, clear to auscultation and percussion. No rales, rhonchi or wheezes noted. No increased work of breathing, no retractions or nasal flaring. Back: No spinal tenderness. No costovertebral tenderness. Full range of motion. Skin: Warm, dry with normal turgor. Normal color with no rashes, no lesions, and no evidence of cellulitis. MS/ Extremity: Pulses equal, no cyanosis. Neurovascular intact. Full, normal range of motion. 02:02 ENT: External ear(s): are unremarkable, Ear canal(s): are normal, Nose: is normal, Mouth: Lips: normal, Oral mucosa: normal, moist, dry, very small abrasions present to buccal mucosa , Gums: normal with healthy appearance, Tongue: is normal, Dental exam: normal, no injury, no pain, no trismus. 02:02 Neuro: Orientation: is normal, Motor: is normal, moves all fours. Vital Signs: 02:01 lp1 02:01 Patient refused, unable to obtain lp1 MDM: 01:53 Patient medically screened. pm1 01:53 Counseling: I had a detailed discussion with the patient and/or guardian regarding: the pm1 historical points, exam findings, and any diagnostic results supporting the discharge/admit diagnosis, to return to the emergency department if symptoms worsen or persist or if there are any questions or concerns that arise at home. Administered Medications: No medications were administered Disposition: 01/20/18 01:56 Discharged to Home. Impression: Abrasion of lip and oral cavity. - Condition is Stable. - Discharge Instructions: Abrasion. - Medication Reconciliation Form, Thank You Letter, Antibiotic Education form. - Follow up: Emergency Department; When: As needed; Reason: Worsening of condition. Follow up: Private Physician; When: As needed; Reason: Recheck today's complaints, Continuance of care, Re-evaluation by your physician. - Problem is new. - Symptoms have improved. Signatures: Sridevi Gentile RN RN lp1 Guero Yates NP BANK VAULT CLERK pm1 Juan Antonio Madison RN RN rv Corrections: (The following items were deleted from the chart) 02:02 01:56 01/20/2018 01:56 Discharged to Home. Impression: Abrasion of lip and oral cavity. rv Condition is Stable. Forms are Medication Reconciliation Form, Thank You Letter, Antibiotic Education, Prescription Opioid Use. Follow up: Emergency Department; When: As needed; Reason: Worsening of condition. Follow up: Private Physician; When: As needed; Reason: Recheck today's complaints, Continuance of care, Re-evaluation by your physician. Problem is new. Symptoms have improved. pm1
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
== END 2018-01-20 02:02 | disposition home or self-care (01) ==
LOC: ER 01:45
DX: S00.512A Abrasion of oral cavity, initial encounter (principal); X58.XXXA Exposure to other specified factors, initial encounter; F32.9 Major depressive disorder, single episode, unspecified; F41.9 Anxiety disorder, unspecified; G40.909 Epilepsy, unspecified, not intractable, without status epilepticus
CPT/HCPCS: 99282

== ENCOUNTER 2018-01-30 20:32 | Emergency (ER) | payer SELFPAY ==
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
== END 2018-01-30 20:43 | disposition left against medical advice (07) ==
LOC: ER 20:32
DX: Z53.21 Procedure and treatment not carried out due to patient leaving prior to being seen by health care provider (principal)
CPT/HCPCS: 99282

== ENCOUNTER 2018-01-31 08:02 | Emergency (ER) | payer SELFPAY ==
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
== END 2018-01-31 08:31 | disposition left against medical advice (07) ==
LOC: ER 08:02
DX: R51 Headache (principal)
CPT/HCPCS: 99281

== ENCOUNTER 2018-02-10 08:42 | Emergency (ER) | payer SELFPAY ==
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
== END 2018-02-10 09:42 | disposition home or self-care (01) ==
LOC: ER 08:42
DX: Z04.71 Encounter for examination and observation following alleged adult physical abuse (principal); F41.9 Anxiety disorder, unspecified; F32.9 Major depressive disorder, single episode, unspecified; G40.909 Epilepsy, unspecified, not intractable, without status epilepticus
CPT/HCPCS: 99283

== ENCOUNTER 2018-02-28 18:45 | Emergency (ER) | payer SELFPAY ==
[2018-02-28 20:29] LABS: Absolute Lymphocytes (CBC) 1.7 K/uL (0.7-4.9); Absolute Monocytes 0.4 K/uL (0.1-1.3); Absolute Neutrophil 1.7 K/uL (1.8-8.0); Basophils % 1.5 % (0-1.3); Eosinophils % 7.6 % (0-4.4); Hematocrit 32.9 % (36.0-45.0); Lymphocytes % 39.4 % (15.3-44.8); MCH 30.4 pg (27.0-35.0); MPV 8.2 fL (7.6-11.3); Monocytes % 10.2 % (3.3-12.3)
[2018-02-28 20:53] LABS: Protime INR 0.97
[2018-02-28 21:11] LABS: ALT/SGPT 13 U/L (12-78); AST/SGOT 18 U/L (15-37); Albumin 2.7 g/dL (3.4-5.0); Alkaline Phosphatase 46 U/L (45-117); BUN Blood Urea Nitrogen 10 mg/dL (7-18); Bicarbonate 29 mmol/L (21-32); Bilirubin Direct < 0.1 mg/dL (0-0.2); Bilirubin Total 0.2 mg/dL (0.2-1.0); Creatine Phosphokinase 71 U/L (26-192); Glucose Level 78 mg/dL (74-106); Potassium 4.2 mmol/L (3.5-5.1); Protein, Total 7.2 g/dL (6.4-8.2); Sodium Level 136 mmol/L (136-145); Troponin (Emerg Dept Use Only) < 0.02 ng/mL (0.0-0.045)
--- NOTE | 2018-02-28 21:42 | RAD REPORT ---
EXAM DESCRIPTION: RAD - Chest Single View - 02/28/2018 8:44 pm CLINICAL HISTORY: Chest pain COMPARISON: October 23, 2017 chest film TECHNIQUE: AP portable chest image was obtained 2022 hours . FINDINGS: Lung volumes are low. No peripheral mass or consolidation. No significant failure or volum e overload. Heart and vasculature are normal. No measurable pleural effusion and no pneumothorax. No gross bony abnormality seen. No acute aortic findings suspected. IMPRESSION: No acute cardiopulmonary process. No significant change from comparison.
[2018-02-28] MEDS ORDERED: LIDOCAINE 1% W/EPI 1:100,000 MDV 50 ML VIAL ONE (22:08)
[2018-02-28] MEDS ORDERED: MAGNE/ALUM HYDROXD 30 ML UCUP ONE (22:08)
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
--- NOTE | 2018-02-28 22:11 | EDPHYS ---
Physician Documentation [facility] Name: Sidra Hodges Age: 43 yrs Sex: Female : 1975 Arrival Date: 02/28/2018 Time: 18:48 Bed 15 Private MD: ED Physician Boris Olivera HPI: 02/28 19:57 This 43 yrs old Female presents to ER via Ambulatory with complaints of chest cp pain. 19:57 The patient or guardian reports chest pain that is located primarily in the substernal cp area. Onset: 3 day(s) ago. The pain does not radiate. 19:57 Associated signs and symptoms: Pertinent negatives: abdominal pain, diaphoresis, lower cp extremity pain, lower extremity swelling, near syncope, shortness of breath, syncope. 19:57 The chest pain is described as aching. Patient reports she became upset today causing cp chest pain to worsen. Historical: - Allergies: 18:53 NKA; aj - Home Meds: 18:53 Abilify 10 mg Oral tab 1 tab once daily [Active]; Depakote 500 mg Oral tab 1 tab in the aj morning and 2 tabs nightly [Active]; oxcarbazepine 300 mg Oral tab 1 tab 2 times per day [Active]; - PMHx: 18:53 Anxiety; Bipolar disorder; Depression; epilepsy; hemorrhoids; aj - PSHx: 18:53 None; aj - Immunization history:: Adult Immunizations up to date. - Social history:: Smoking status: Patient/guardian denies using tobacco. - Ebola Screening: : Patient negative for fever greater than or equal to 101.5 degrees Fahrenheit, and additional compatible Ebola Virus Disease symptoms Patient denies exposure to infectious person Patient denies travel to an Ebola-affected area in the 21 days before illness onset No symptoms or risks identified at this time. ROS: 20:05 Constitutional: Negative for body aches, chills, fever, poor PO intake. cp 20:05 Eyes: Negative for injury, pain, redness, and discharge. cp 20:05 ENT: Negative for drainage from ear(s), ear pain, sore throat, difficulty swallowing, difficulty handling secretions. 20:05 Cardiovascular: Positive for chest pain, Negative for edema, palpitations. 20:05 Respiratory: Negative for cough, shortness of breath, wheezing. 20:05 Abdomen/GI: Negative for abdominal pain, nausea, vomiting, and diarrhea. 20:05 Back: Negative for pain at rest, pain with movement, radiated pain. 20:05 : Negative for urinary symptoms. 20:05 Skin: Negative for cellulitis, rash. 20:05 Neuro: Negative for altered mental status, headache, syncope, near syncope, weakness. 20:05 All other systems are negative. Exam: 19:25 ECG was reviewed by the Attending Physician. cp 20:10 Constitutional: The patient appears in no acute distress, alert, awake, cp non-diaphoretic, non-toxic, well developed, well nourished. 20:10 Head/Face: Normocephalic, atraumatic. cp 20:10 Eyes: Periorbital structures: appear normal, Conjunctiva: normal, no exudate, no injection, Sclera: no appreciated abnormality, Lids and lashes: appear normal, bilaterally. 20:10 ENT: External ear(s): are unremarkable, Nose: is normal, Mouth: Lips: normal, Oral mucosa: pink and intact, moist, Posterior pharynx: is normal, airway is patent, no erythema, no exudate. 20:10 Neck: ROM/movement: is normal, is supple, without pain, no range of motions limitations, no nuchal rigidity. 20:10 Chest/axilla: Inspection: normal, Palpation: is normal, no crepitus, no tenderness. 20:10 Cardiovascular: Rate: normal, Rhythm: regular, Edema: is not appreciated, JVD: is not appreciated. 20:10 Respiratory: the patient does not display signs of respiratory distress, Respirations: normal, no use of accessory muscles, no retractions, no splinting, no tachypnea, labored breathing, is not present, Breath sounds: are clear throughout, no decreased breath sounds, no stridor, no wheezing. 20:10 Abdomen/GI: Inspection: abdomen appears normal, Palpation: abdomen is soft and non-tender, in all quadrants, rebound tenderness, is not appreciated, voluntary guarding, is not appreciated, involuntary guarding, is not appreciated. 20:10 Back: pain, is absent, ROM is normal. 20:10 Skin: cellulitis, is not appreciated, no rash present. 20:10 Neuro: Orientation: to person, place \T\ time. Mentation: lucid, able to follow commands, Cerebellar function: is grossly normal, Motor: moves all fours, strength is normal, Sensation: no obvious gross deficits, Gait: is steady. Vital Signs: 18:53 BP 112 / 68; Pulse 69; Resp 20; Temp 97.0; Pulse Ox 98% on R/A; Weight 90.72 kg; Height aj 5 ft. 0 in. (152.40 cm); 20:13 BP 114 / 98; Pulse 58; Resp 18; Pulse Ox 100% on R/A; tl2 22:19 BP 144 / 80; Pulse 58; Resp 18; Pulse Ox 100% on R/A; tl2 18:53 Body Mass Index 39.06 (90.72 kg, 152.40 cm) aj MDM: 19:04 Patient medically screened. cp 20:00 Differential diagnosis: acute myocardial infarction, acute pericarditis, pericarditis, cp pleurisy, pneumonia, pneumothorax, pulmonary embolus, stable angina, thoracic aortic disection, unstable angina. 22:05 Data reviewed: vital signs, nurses notes, lab test result(s), EKG, radiologic studies, cp plain films. 22:07 Counseling: I had a detailed discussion with the patient and/or guardian regarding: the cp historical points, exam findings, and any diagnostic results supporting the discharge/admit diagnosis, lab results, radiology results, the need for outpatient follow up, a family practitioner, to return to the emergency department if symptoms worsen or persist or if there are any questions or concerns that arise at home. 22:07 Response to treatment: the patient's symptoms have markedly improved after treatment, cp and as a result, I will discharge patient. Special discussion: Based on the patient's history, exam, and Dx evaluation, there is no indication for emergent intervention or inpatient Tx. It is understood by the patient/guardian that if the Sx's persist or worsen they need to return immediately for re-evaluation. 02/28 19:56 Order name: Basic Metabolic Panel; Complete Time: 21:58 cp 02/28 21:58 Interpretation: Normal except: CRE 0.50. cp 02/28 19:56 Order name: CBC with Diff; Complete Time: 21:58 cp 02/28 21:58 Interpretation: Normal except: WBC 4.2; RBC 3.70; HGB 11.2; HCT 32.9; PLT 126; MELISSA% cp 41.3; EOSINOPHIL % 7.6; BASO% 1.5; NEUT A 1.7. 02/28 19:56 Order name: CPK; Complete Time: 21:58 02/28 19:56 Order name: LFT's; Complete Time: 21:58 02/28 21:59 Interpretation: Normal except: ALB 2.7; GLOB 4.5; A/G 0.6. 02/28 19:56 Order name: PT-INR; Complete Time: 21:58 02/28 19:56 Order name: Ptt, Activated; Complete Time: 21:58 02/28 19:04 Order name: EKG; Complete Time: 19:05 02/28 19:04 Order name: EKG - Nurse/Tech; Complete Time: 19:16 02/28 19:56 Order name: Troponin (emerg Dept Use Only); Complete Time: 21:58 02/28 21:59 Interpretation: TROPED < 0.02; Reviewed. 02/28 19:56 Order name: XRAY Chest (1 view); Complete Time: 21:58 02/28 19:56 Order name: Cardiac monitoring; Complete Time: 20:10 02/28 19:56 Order name: IV Saline Lock; Complete Time: 20:10 02/28 19:56 Order name: Labs collected and sent; Complete Time: 20:10 02/28 19:56 Order name: O2 Per Protocol; Complete Time: 20:10 02/28 19:56 Order name: O2 Sat Monitoring; Complete Time: 20:10 cp EC:25 Rate is 60 beats/min. Rhythm is regular. [place] interval is normal. QRS interval is normal. cp QT interval is normal. T waves are Inverted in leads V3, V4, V5. Clinical impression: Abnormal EKG without significant change. Interpreted by me. Reviewed by me. Administered Medications: 22:05 Drug: GI Cocktail without - (Maalox Suspension 30 ml, Lidocaine Liquid 2 % 15 tl1 ml) Route: PO; Disposition: 02/28/18 22:10 Discharged to Home. Impression: Other chest pain. - Condition is Stable. - Discharge Instructions: Nonspecific Chest Pain. - Prescriptions for Protonix 40 mg Oral Tablet - take 1 tablet by ORAL route once daily; 30 tablet. - Medication Reconciliation Form, Thank You Letter, Antibiotic Education, Prescription Opioid Use form. - Follow up: Private Physician; When: 2 - 3 days; Reason: Recheck today's complaints. - Problem is new. - Symptoms have improved. Signatures: Dispatcher [employer] Kateryna Arroyo RN Loida Kaminski RN RN tl1 Pascual Lopez PA PA cp Knox, Taylor RN RN tl2 Corrections: (The following items were deleted from the chart) 22:27 22:10 02/28/2018 22:10 Discharged to Home. Impression: Other chest pain. Condition is tl2 Stable. Forms are Medication Reconciliation Form, Thank You Letter, Antibiotic Education, Prescription Opioid Use. Follow up: Private Physician; When: 2 - 3 days; Reason: Recheck today's complaints. Problem is new. Symptoms have improved. cp
--- NOTE | 2018-03-02 08:57 | EKG ---
Test Date: 2018-02-28 Test Time: 19:16:12 Product Finisher: EYAL MEASUREMENT RESULTS: Intervals: Rate: 60 WY: 146 QRSD: 88 QT: 398 QTc: 398 [place]: P: 35 WY: 146 QRS: 64 T: 80 INTERPRETIVE STATEMENTS: Normal sinus rhythm Cannot rule out Anterior infarct, age undetermined Abnormal ECG Compared to ECG 10/30/2017 05:05:13 Sinus bradycardia no longer present Myocardial infarct finding still present Electronically Signed On 03-02-18 08:54:29 CDT by Dimitri Bruce
== END 2018-02-28 22:27 | disposition home or self-care (01) ==
LOC: ER 18:45
DX: R07.89 Other chest pain (principal); F32.9 Major depressive disorder, single episode, unspecified; F31.9 Bipolar disorder, unspecified; F41.9 Anxiety disorder, unspecified; G40.909 Epilepsy, unspecified, not intractable, without status epilepticus
CPT/HCPCS: 36415; 71045; 80048; 80076; 82550; 84484; 85025; 85610; 85730; 93005; 99284

== ENCOUNTER 2018-03-11 13:15 | Emergency (ER) | payer SELFPAY ==
--- NOTE | 2018-03-11 14:09 | ER ---
Nurse's Notes [facility] Name: Sidra Hodges Age: 43 yrs Sex: Female : 1975 Arrival Date: 03/11/2018 Time: 13:17 Bed 17 Private MD: Diagnosis: External Hemorrhoids with bleeding Presentation: 03/11 13:21 Presenting complaint: Patient states: low back pain and a "ball in my back" started 1 sv month ago. Transition of care: patient was not received from another setting of care. Onset of symptoms was January 2018. Care prior to arrival: None. 13:21 Method Of Arrival: Ambulatory sv 13:21 Acuity: CARMITA 4 sv 14:00 Risk Assessment: Do you want to hurt yourself or someone else? Patient reports no ph desire to harm self or others. Initial Sepsis Screen: Does the patient meet any 2 criteria? No. Patient's initial sepsis screen is negative. Does the patient have a suspected source of infection? No. Patient's initial sepsis screen is negative. Historical: - Allergies: 13:25 NKA; sv - PMHx: 13:25 Anxiety; Bipolar disorder; Depression; epilepsy; hemorrhoids; sv - PSHx: 13:25 None; sv - Immunization history:: Adult Immunizations up to date. - Social history:: Smoking status: Patient/guardian denies using tobacco. - Ebola Screening: : No symptoms or risks identified at this time. - Family history:: not pertinent. - Hospitalizations: : No recent hospitalization is reported. Screenin:00 Abuse screen: Denies threats or abuse. Denies injuries from another. Nutritional ph screening: No deficits noted. Tuberculosis screening: No symptoms or risk factors identified. Fall Risk None identified. Assessment: 14:00 General: Appears in no apparent distress. comfortable, Behavior is calm, cooperative, ph appropriate for age. Pain: Complains of pain in lumbar area and sacrum. Neuro: Level of Consciousness is awake, alert, obeys commands, Oriented to person, place, time, situation. Cardiovascular: Capillary refill < 3 seconds Patient's skin is warm and dry. Respiratory: Airway is patent Respiratory effort is even, unlabored. GI: Reports rectal pain. Derm: Skin is intact, is healthy with good turgor, Skin is pink, warm \\T\\ dry. Musculoskeletal: Circulation, motion, and sensation intact. Range of motion: intact in all extremities. Vital Signs: 13:25 BP 121 / 78; Pulse 71; Resp 16; Temp 97.8; Pulse Ox 98% ; Pain 6/10; sv 14:50 BP 118 / 72; Pulse 64; Resp 18; Temp 97.3; Pulse Ox 99% on R/A; ph ED Course: 13:17 Patient arrived in ED. mr 13:24 Triage completed. sv 13:27 Arm band placed on right wrist. sv 13:49 Yong Banks MD is Attending Physician. rn 14:00 Patient has correct armband on for positive identification. Bed in low position. Call ph light in reach. Side rails up X 1. 14:08 Derrick Morris MD is Referral Physician. rn 14:50 No provider procedures requiring assistance completed. Patient did not have IV access ph during this emergency room visit. 14:54 Mariza Johnson RN is Primary Nurse. ph Administered Medications: No medications were administered Outcome: 14:08 Discharge ordered by . rn 14:54 Patient left the ED. ph 14:54 Discharged to home ambulatory, with family. ph 14:54 Condition: good 14:54 Discharge instructions given to patient, Instructed on discharge instructions, follow up and referral plans. medication usage, Demonstrated understanding of instructions, follow-up care, medications. Signatures: Samantha Pitts RN RN sv Rivera, Maria mr Yong Banks MD MD rn Hall, Patricia, RN RN
--- NOTE | 2018-03-11 14:09 | EDPHYS ---
Physician Documentation [facility] Name: Sidra Hodges Age: 43 yrs Sex: Female : 1975 Arrival Date: 03/11/2018 Time: 13:17 Bed 17 Private MD: ED Physician Yong Banks HPI: 03/11 14:04 This 43 yrs old Female presents to ER via Ambulatory with complaints of rn Trouble Sleeping, rectal pain. 14:04 The patient presents to the emergency department with bleeding from the rectum/anus, rn pain in the rectal area. Onset: The symptoms/episode began/occurred 2 month(s) ago. Modifying factors: The symptoms are alleviated by nothing, The symptoms are aggravated by bowel movement. The patient has experienced similar episodes in the past. Reports for several months has been having intermittent rectal pain, mild bright red bleeding, no syncope/sob/chest pain. + known hemorrhoids. . Historical: - Allergies: 13:25 NKA; sv - PMHx: 13:25 Anxiety; Bipolar disorder; Depression; epilepsy; hemorrhoids; sv - PSHx: 13:25 None; sv - Immunization history:: Adult Immunizations up to date. - Social history:: Smoking status: Patient/guardian denies using tobacco. - Ebola Screening: : No symptoms or risks identified at this time. - Family history:: not pertinent. - Hospitalizations: : No recent hospitalization is reported. ROS: 14:04 Constitutional: Negative for fever, chills, and weight loss, Eyes: Negative for injury, rn pain, redness, and discharge, Cardiovascular: Negative for chest pain, palpitations, and edema, Respiratory: Negative for shortness of breath, cough, wheezing, and pleuritic chest pain, Abdomen/GI: Negative for abdominal pain, nausea, vomiting, diarrhea, + rectal pain and bleeding MS/Extremity: Negative for injury and deformity, Skin: Negative for injury, rash, and discoloration, Neuro: Negative for headache, weakness, numbness, tingling, and seizure. Exam: 14:04 Constitutional: This is a well developed, well nourished patient who is awake, alert, rn and in no acute distress. Abdomen/GI: Soft, non-tender, with normal bowel sounds. No distension or tympany. No guarding or rebound. No evidence of tenderness throughout. Skin: Warm, dry with normal turgor. Normal color with no rashes, no lesions, and no evidence of cellulitis. MS/ Extremity: Pulses equal, no cyanosis. Neurovascular intact. Full, normal range of motion. Equal circumference. Neuro: Awake and alert, GCS 15, oriented to person, place, time, and situation. Cranial nerves II-XII grossly intact. Motor strength 5/5 in all extremities. Sensory grossly intact. Cerebellar exam normal. Normal gait. Vital Signs: 13:25 BP 121 / 78; Pulse 71; Resp 16; Temp 97.8; Pulse Ox 98% ; Pain 6/10; sv 14:50 BP 118 / 72; Pulse 64; Resp 18; Temp 97.3; Pulse Ox 99% on R/A; ph MDM: 13:49 Patient medically screened. rn 14:04 Differential diagnosis: hemorrhoids. Data reviewed: vital signs, nurses notes, and as a rn result, I will discharge patient. Counseling: I had a detailed discussion with the patient and/or guardian regarding: the historical points, exam findings, and any diagnostic results supporting the discharge/admit diagnosis, the need for outpatient follow up, to return to the emergency department if symptoms worsen or persist or if there are any questions or concerns that arise at home. Special discussion: I discussed with the patient/guardian in detail that at this point there is no indication for admission to the hospital. It is understood, however, that if the symptoms persist or worsen the patient needs to return immediately for re-evaluation. Based on the history and exam findings, there is no indication for further emergent testing or inpatient evaluation. I discussed with the patient/guardian the need to see the window glass installer for further evaluation of the symptoms. ED course: Had long discussion with patient and mother regarding diagnosis and need for stool softener and anusol prescription, recommended outpt GI f/u. Normal vitals, normal sclera, no symptomatic anemia.. Administered Medications: No medications were administered Disposition: 03/11/18 14:08 Discharged to Home. Impression: External Hemorrhoids with bleeding. - Condition is Stable. - Discharge Instructions: Hemorrhoids, Rectal Bleeding. - Prescriptions for Anusol- HC 2.5 % Rectal Cream - Apply to affected area 1 application by TOPICAL route every 8 hours As needed; 30 gram. - Medication Reconciliation Form, Thank You Letter, Antibiotic Education, Prescription Opioid Use form. - Follow up: Alexandra, Derrick, MD; When: As needed; Reason: Recheck today's complaints, Re-evaluation by your physician. - Problem is chronic. - Symptoms are unchanged. Signatures: Samantha Pitts RN RN sv Nieto, Roman, MD MD rn Hall, Patricia, RN RN ph Corrections: (The following items were deleted from the chart) 14:54 14:08 03/11/2018 14:08 Discharged to Home. Impression: External Hemorrhoids with ph bleeding. Condition is Stable. Forms are Medication Reconciliation Form, Thank You Letter, Antibiotic Education, Prescription Opioid Use. Follow up: Derrick Morris; When: As needed; Reason: Recheck today's complaints, Re-evaluation by your physician. Problem is chronic. Symptoms are unchanged. rn
== END 2018-03-11 14:54 | disposition home or self-care (01) ==
LOC: ER 13:15
DX: K64.4 Residual hemorrhoidal skin tags (principal)
CPT/HCPCS: 99281

== ENCOUNTER 2018-04-10 18:04 | Emergency (ER) | payer SELFPAY ==
--- NOTE | 2018-04-10 19:06 | RAD REPORT ---
EXAM DESCRIPTION: CT - Head C Spine Mpr Wo Con - 04/10/2018 6:39 pm CLINICAL HISTORY: Head and neck injury status post fall. Head and neck pain COMPARISON: July 2015 TECHNIQUE: Computed axial tomography of the head and cervical spine was obtained. Sagittal and coronal reconstruction was performed. All CT scans are performed using dose optimization technique as appropriate and may include automated exposure control or mA/KV adjustment according to patient size. FINDINGS: An intracranial bleed is not seen. The ventricles are normal in caliber. An extra-axial fl uid collection is not noted.Fluid within the visualized sinuses and mastoids is not seen A cervical fracture is not visualized. No dislocation is noted. Small lucency within the C3 vertebral body is unchanged likely benign IMPRESSION: No acute intracranial abnormality is seen. A cervical fracture is not visualized. If the patient continues to have symptoms to suggest intracra nial /spinal cord pathology then MRI would be recommended
--- NOTE | 2018-04-10 19:16 | RAD REPORT ---
EXAM DESCRIPTION: RAD - Pelvis - 04/10/2018 7:10 pm CLINICAL HISTORY: Pelvic pain status post injury FINDINGS: No fracture or dislocation is seen.
--- NOTE | 2018-04-10 19:18 | RAD REPORT ---
EXAM DESCRIPTION: RAD - Femur Right - 04/10/2018 7:09 pm CLINICAL HISTORY: Right leg pain status post fall FINDINGS: No fracture is seen.
--- NOTE | 2018-04-10 19:19 | RAD REPORT ---
EXAM DESCRIPTION: RAD - Femur Left - 04/10/2018 7:09 pm CLINICAL HISTORY: Left leg pain status post fall. FINDINGS: No fracture seen.
--- NOTE | 2018-04-10 19:20 | RAD REPORT ---
EXAM DESCRIPTION: Elise Morales Left04/10/2018 7:10 pm CLINICAL HISTORY: Left leg pain status post fall FINDINGS: No fracture is seen
--- NOTE | 2018-04-10 19:21 | RAD REPORT ---
EXAM DESCRIPTION: RAD - Tib Fib Right - 04/10/2018 7:10 pm CLINICAL HISTORY: Right leg pain FINDINGS: No fracture is seen
--- NOTE | 2018-04-10 19:31 | EDPHYS ---
Physician Documentation [facility] Name: Sidra Hodges Age: 43 yrs Sex: Female : 1975 Arrival Date: 04/10/2018 Time: 18:04 Bed 7 Private MD: ED Physician Yong Banks HPI: 04/10 18:30 This 43 yrs old Female presents to ER via EMS with complaints of Knee Injury, rn head injury, fall. 18:30 The patient or guardian reports injury, pain. The complaints affect the forehead. rn Onset: The symptoms/episode began/occurred just prior to arrival. Severity of symptoms: At their worst the symptoms were mild, in the emergency department the symptoms are unchanged. The patient has not experienced similar symptoms in the past. Patient reports walking out of market, tripped on crack, fell forward holding 2 packs of soda, hit right forehead and both knees, no LOC, reports pain to head/neck/hips/knees/left ankle. . 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 - Social history:: Smoking status: Patient/guardian denies using tobacco. - Ebola Screening: : Patient negative for fever greater than or equal to 101.5 degrees Fahrenheit, and additional compatible Ebola Virus Disease symptoms Patient denies exposure to infectious person Patient denies travel to an Ebola-affected area in the 21 days before illness onset No symptoms or risks identified at this time. - Family history:: not pertinent. - Hospitalizations: : No recent hospitalization is reported. ROS: 18:30 Constitutional: Negative for fever, chills, and weight loss, Eyes: Negative for injury, rn pain, redness, and discharge, Neck: + neck pain Cardiovascular: Negative for chest pain, palpitations, and edema, Respiratory: Negative for shortness of breath, cough, wheezing, and pleuritic chest pain, Abdomen/GI: Negative for abdominal pain, nausea, vomiting, diarrhea, and constipation, Back: Negative for injury and pain, MS/Extremity: + injury, no deformity Skin: + abrasions Neuro: Negative for weakness, numbness, tingling, and seizure. Exam: 18:30 Constitutional: This is a well developed, well nourished patient who is awake, alert, rn and in no acute distress, appears anxious Head/Face: Normocephalic, atraumatic. Eyes: Pupils equal round and reactive to light, extra-ocular motions intact. Lids and lashes normal. Conjunctiva and sclera are non-icteric and not injected. Cornea within normal limits. Periorbital areas with no swelling, redness, or edema. Neck: Trachea midline, no bony tenderness Chest/axilla: Normal chest wall appearance and motion. Nontender with no deformity. Cardiovascular: Regular rate and rhythm. No pulse deficits. Respiratory: Lungs have equal breath sounds bilaterally, clear to auscultation and percussion. No rales, rhonchi or wheezes noted. No increased work of breathing, no retractions or nasal flaring. Abdomen/GI: soft, non-tender Back: No spinal tenderness. No costovertebral tenderness. Full range of motion. MS/ Extremity: Pulses equal, no cyanosis. Neurovascular intact. Painful ROM entire right and left legs without deformity, abrasions noted to bilateral knees and left medial malleolus. NO bleeding or laceration. Neuro: Awake and alert, GCS 15, oriented to person, place, time, and situation. Cranial nerves II-XII grossly intact. Motor strength 5/5 in all extremities. Sensory grossly intact. Cerebellar exam normal. Vital Signs: 18:15 BP 144 / 62; Pulse 82; Resp 16; Temp 97.4; Pulse Ox 99% on R/A; sg 19:32 BP 122 / 97; Pulse 70; Resp 17 S; Pulse Ox 100% on R/A; jd3 [place] Coma Score: 18:30 Eye Response: spontaneous(4). Verbal Response: oriented(5). Motor Response: obeys rn commands(6). Total: 15. MDM: 18:11 Patient medically screened. jr8 19:29 Data reviewed: vital signs. Data interpreted: Pulse oximetry: on room air is 99 %. pm1 Interpretation: normal. Counseling: I had a detailed discussion with the patient and/or guardian regarding: the historical points, exam findings, and any diagnostic results supporting the discharge/admit diagnosis, radiology results, the need for outpatient follow up, to return to the emergency department if symptoms worsen or persist or if there are any questions or concerns that arise at home. 04/10 18:15 Order name: CT Head C Spine; Complete Time: 19:29 rn 04/10 18:15 Order name: XRAY Femur RIGHT; Complete Time: 19:29 rn 04/10 18:15 Order name: XRAY Femur LEFT; Complete Time: 19:29 rn 04/10 18:15 Order name: XRAY Tib Fib LEFT; Complete Time: :29 rn 04/10 18:15 Order name: XRAY Tib Fib RIGHT; Complete Time: 19:29 rn 04/10 18:15 Order name: XRAY Pelvis; Complete Time: 19:29 rn Administered Medications: No medications were administered Disposition: 04/10/18 19:30 Discharged to Home. Impression: Abrasion, left knee, Abrasion, right knee, Unspecified injury of head. - Condition is Stable. - Discharge Instructions: Abrasion, Head Injury, Adult. - Medication Reconciliation Form, Thank You Letter form. - Follow up: Emergency Department; When: As needed; Reason: Worsening of condition. Follow up: Private Physician; When: 2 - 3 days; Reason: Recheck today's complaints, Continuance of care, Re-evaluation by your physician. - Problem is new. - Symptoms have improved. - Notes: Take ibuprofen or tylenol as needed for pain Addendum: 04/12/2018 19:03 Co-signature as Attending Physician, Yong Banks MD. r n Signatures: Dispatcher [employer] EDBlanco Sumner RN RN sg Williams, Irene, RN RN iw Nieto, Roman, MD MD rn Roszak, Josh, PA PA jr8 Guero Yates, ALEXEI [employer] EXCHANGE ADMINISTRATOR pm1 Kesha May RN RN ea Corrections: (The following items were deleted from the chart) 04/10 21:02 19:30 04/10/2018 19:30 Discharged to Home. Impression: Abrasion, left knee; Abrasion, ea right knee; Unspecified injury of head. Condition is Stable. Forms are Medication Reconciliation Form, Thank You Letter, Antibiotic Education, Prescription Opioid Use. Follow up: Emergency Department; When: As needed; Reason: Worsening of condition. Follow up: Private Physician; When: 2 - 3 days; Reason: Recheck today's complaints, Continuance of care, Re-evaluation by your physician. Problem is new. Symptoms have improved. pm1
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
== END 2018-04-10 21:02 | disposition home or self-care (01) ==
LOC: ER 18:04
DX: S80.212A Abrasion, left knee, initial encounter (principal); S80.211A Abrasion, right knee, initial encounter; W01.198A Fall on same level from slipping, tripping and stumbling with subsequent striking against other object, initial encounter; Y93.89 Activity, other specified; Y92.512 Supermarket, store or market as the place of occurrence of the external cause; F31.9 Bipolar disorder, unspecified; F32.9 Major depressive disorder, single episode, unspecified; F41.9 Anxiety disorder, unspecified
CPT/HCPCS: 70450; 72125; 72170; 99284

== ENCOUNTER 2018-04-13 12:28 | Emergency (ER) | payer SELFPAY ==
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
== END 2018-04-13 14:21 | disposition home or self-care (01) ==
LOC: ER 12:28
DX: S40.012A Contusion of left shoulder, initial encounter (principal); Y04.2XXA Assault by strike against or bumped into by another person, initial encounter; Y93.9 Activity, unspecified; F41.8 Other specified anxiety disorders; G40.909 Epilepsy, unspecified, not intractable, without status epilepticus
CPT/HCPCS: 99283

== ENCOUNTER 2018-04-14 02:08 | Emergency (ER) | payer SELFPAY ==
--- NOTE | 2018-04-14 03:41 | EDPHYS ---
Physician Documentation [facility] Name: Sidra Hodges Age: 43 yrs Sex: Female : 1975 Arrival Date: 04/14/2018 Time: 02:09 Bed 11 Private MD: ED Physician Yong Bakns HPI: 04/14 03:31 This 43 yrs old Female presents to ER via EMS with complaints of Shoulder Pain.rn 03:31 The patient or guardian complains of pain. left shoulder. Onset: The symptoms/episode rn began/occurred 3 day(s) ago. Severity of symptoms: At their worst the symptoms were mild, in the emergency department the symptoms are unchanged. The patient has experienced similar episodes in the past. Reports left shoulder pain, intermittent after fall she sustained 3 days ago, seen here day of fall, did not complain of shoulder pain, had head/neck/hip pain, neg plain films and ct head/cspine, called 911 today because still hurting, no new trauma, states hurts to use left arm but carrying her bag in left arm with full range of motion.. 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 - Social history:: Smoking status: Patient/guardian denies using tobacco. - Ebola Screening: : No symptoms or risks identified at this time. - Family history:: not pertinent. - Hospitalizations: : No recent hospitalization is reported. ROS: 03:31 Constitutional: Negative for fever, chills, and weight loss, Eyes: Negative for injury, rn pain, redness, and discharge, Neck: Negative for injury, pain, and swelling, Cardiovascular: Negative for chest pain, palpitations, and edema, Respiratory: Negative for shortness of breath, cough, wheezing, and pleuritic chest pain, Abdomen/GI: Negative for abdominal pain, nausea, vomiting, diarrhea, and constipation, MS/Extremity: Negative for deformity Skin: Negative for injury, rash, and discoloration, Neuro: Negative for headache, weakness, numbness, tingling, and seizure. Exam: 03:31 Constitutional: This is a well developed, well nourished patient who is awake, alert, rn and in no acute distress. Head/Face: Normocephalic, atraumatic. Eyes: Pupils equal round and reactive to light, extra-ocular motions intact. Lids and lashes normal. Conjunctiva and sclera are non-icteric and not injected. Cornea within normal limits. Periorbital areas with no swelling, redness, or edema. Neck: Trachea midline, no thyromegaly or masses palpated, and no cervical lymphadenopathy. Supple, full range of motion without nuchal rigidity, or vertebral point tenderness. No Meningismus. Chest/axilla: Normal chest wall appearance and motion. Nontender with no deformity. No lesions are appreciated. Cardiovascular: Regular rate and rhythm with a normal S1 and S2. No gallops, murmurs, or rubs. Normal PMI, no JVD. No pulse deficits. Respiratory: Lungs have equal breath sounds bilaterally, clear to auscultation and percussion. No rales, rhonchi or wheezes noted. No increased work of breathing, no retractions or nasal flaring. Abdomen/GI: Soft, non-tender, with normal bowel sounds. No distension or tympany. No guarding or rebound. No evidence of tenderness throughout. Skin: Small minor abrasions to elbows and knees, no lacerations MS/ Extremity: Pulses equal, no cyanosis. Neurovascular intact. Full, normal range of motion. Equal circumference. Neuro: Awake and alert, GCS 15, oriented to person, place, time, and situation. Cranial nerves II-XII grossly intact. Motor strength 5/5 in all extremities. Sensory grossly intact. Cerebellar exam normal. Normal gait. Vital Signs: 03:00 BP 129 / 88; Pulse 74; Resp 16 S; Temp 98.1(O); Pulse Ox 100% on R/A; Weight 68.36 kg bb (M); Height 4 ft. 7 in. (139.70 cm) (M); Pain 5/10; 03:00 Body Mass Index 35.03 (68.36 kg, 139.70 cm) bb MDM: 03:08 Patient medically screened. rn 03:31 Differential diagnosis: DJD, tendonitis, contusion. Data reviewed: vital signs, nurses rn notes, and as a result, I will discharge patient. Counseling: I had a detailed discussion with the patient and/or guardian regarding: the historical points, exam findings, and any diagnostic results supporting the discharge/admit diagnosis, the need for outpatient follow up, to return to the emergency department if symptoms worsen or persist or if there are any questions or concerns that arise at home. Special discussion: I discussed with the patient/guardian in detail that at this point there is no indication for admission to the hospital. It is understood, however, that if the symptoms persist or worsen the patient needs to return immediately for re-evaluation. ED course: Pt with FROM of all extremities, already evaluated for the trauma from 3 days ago, + contusions, no ecchymosis/deformity of left shoulder, no emergent need for imaging at this point, recommend sling, ibuprofen, and RICE.. 04/14 03:41 Order name: Sling; Complete Time: 04:00 rn Administered Medications: No medications were administered Disposition: 04/14/18 03:40 Discharged to Home. Impression: Contusion of left shoulder. - Condition is Stable. - Discharge Instructions: Shoulder Pain. - Medication Reconciliation Form, Thank You Letter, Antibiotic Education, Prescription Opioid Use form. - Follow up: Private Physician; When: As needed; Reason: Recheck today's complaints, Re-evaluation by your physician. - Problem is new. - Symptoms have improved. Signatures: Conchita Marcelo RN RN bb Yong Banks MD MD airborne operations superintendent: (The following items were deleted from the chart) 04:02 03:40 04/14/2018 03:40 Discharged to Home. Impression: Contusion of left shoulder. bb Condition is Stable. Forms are Medication Reconciliation Form, Thank You Letter, Antibiotic Education, Prescription Opioid Use. Follow up: Private Physician; When: As needed; Reason: Recheck today's complaints, Re-evaluation by your physician. Problem is new. Symptoms have improved. rn
--- NOTE | 2018-04-14 03:41 | ER ---
Nurse's Notes [facility] Name: Sidra Hodges Age: 43 yrs Sex: Female : 1975 Arrival Date: 04/14/2018 Time: 02:09 Bed 11 Private MD: Diagnosis: Contusion of left shoulder Presentation: 04/14 02:56 Presenting complaint: Patient states: she is having left arm pain and neck pain since bb last night pt is poor historian states she has some kind of "attack" that woke her up from sleep. Transition of care: patient was not received from another setting of care. Onset of symptoms is unknown. Risk Assessment: Do you want to hurt yourself or someone else? Patient reports no desire to harm self or others. Initial Sepsis Screen: Does the patient meet any 2 criteria? No. Patient's initial sepsis screen is negative. Does the patient have a suspected source of infection? No. Patient's initial sepsis screen is negative. Care prior to arrival: None. 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 - Social history:: Smoking status: Patient/guardian denies using tobacco. - Ebola Screening: : No symptoms or risks identified at this time. - Family history:: not pertinent. - Hospitalizations: : No recent hospitalization is reported. Screenin:00 Abuse screen: Denies threats or abuse. Nutritional screening: No deficits noted. bb Tuberculosis screening: No symptoms or risk factors identified. Fall Risk None identified. Assessment: 03:00 General: Appears in no apparent distress. Behavior is calm, cooperative. Pain: bb Complains of pain in left shoulder. Neuro: Level of Consciousness is awake, alert, obeys commands, Oriented to person, place, time, situation. Cardiovascular: No deficits noted. Respiratory: Respiratory effort is even, unlabored. GI: No deficits noted. No signs and/or symptoms were reported involving the gastrointestinal system. Derm: Skin is pink, warm \\T\\ dry. Musculoskeletal: Circulation, motion, and sensation intact. Reports pain in left shoulder. 04:01 Reassessment: No changes from previously documented assessment. Patient is alert, bb oriented x 3, equal unlabored respirations, skin warm/dry/pink. pt verbalized understanding of and agrees to plan of care discharge instructions given pt ambulated with steady gait to exit. Vital Signs: 03:00 BP 129 / 88; Pulse 74; Resp 16 S; Temp 98.1(O); Pulse Ox 100% on R/A; Weight 68.36 kg bb (M); Height 4 ft. 7 in. (139.70 cm) (M); Pain 5/10; 03:00 Body Mass Index 35.03 (68.36 kg, 139.70 cm) bb ED Course: 02:09 Patient arrived in ED. al2 02:58 Triage completed. bb 03:00 Arm band placed on Patient placed in an exam room, on a stretcher. bb 03:00 Patient has correct armband on for positive identification. Bed in low position. Call bb light in reach. Side rails up X 1. 03:00 No provider procedures requiring assistance completed. Patient did not have IV access bb during this emergency room visit. 03:05 Conchita Marcelo RN is Primary Nurse. bb 03:08 Yong Banks MD is Attending Physician. rn Administered Medications: No medications were administered Outcome: 03:40 Discharge ordered by . rn 04:02 Discharged to home ambulatory. bb 04:02 Condition: stable 04:02 Discharge instructions given to patient, Instructed on discharge instructions, follow up and referral plans. Demonstrated understanding of instructions, follow-up care. 04:02 Patient left the ED. bb Signatures: Conchita Marcelo RN RN bb Nieto, Roman, MD MD rn Love, Angelica al2
== END 2018-04-14 04:02 | disposition home or self-care (01) ==
LOC: ER 02:08
DX: S40.012A Contusion of left shoulder, initial encounter (principal); W19.XXXA Unspecified fall, initial encounter; Y93.9 Activity, unspecified; Y92.9 Unspecified place or not applicable; G40.909 Epilepsy, unspecified, not intractable, without status epilepticus; F32.9 Major depressive disorder, single episode, unspecified; F31.9 Bipolar disorder, unspecified; F41.9 Anxiety disorder, unspecified
CPT/HCPCS: 99283

== ENCOUNTER 2018-04-19 01:25 | Emergency (ER) | payer SELFPAY ==
--- NOTE | 2018-04-19 04:22 | EDPHYS ---
Physician Documentation [facility] Name: Sidra Hodges Age: 43 yrs Sex: Female : 1975 Arrival Date: 04/19/2018 Time: :27 Bed 5 Private MD: ED Physician Boris Olivera HPI: 04/19 02:35 This 43 yrs old Female presents to ER via EMS with complaints of chest pain kdr with radiation to her left shoulder. 02:35 The patient or guardian reports chest pain that is located primarily in the anterior kdr chest wall, left. Onset: suddenly, just prior to arrival. The pain radiates to the left shoulder. Associated signs and symptoms: The patient has no apparent associated signs or symptoms. The chest pain is described as aching, dull. Duration: The patient or guardian reports a single episode, that is still ongoing. Severity of pain: At its worst the pain was mild in the emergency department the pain is unchanged. The patient has experienced similar episodes in the past, multiple times. The patient has been recently seen by a physician: The patient has been recently seen at the [facility] Emergency Department, this week, The patient is a frequent visitor to this ED with abdominal and chest pain. 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 - Social history:: Smoking status: Patient/guardian denies using tobacco. - Ebola Screening: : Patient negative for fever greater than or equal to 101.5 degrees Fahrenheit, and additional compatible Ebola Virus Disease symptoms. ROS: 02:35 Constitutional: Negative for fever, chills, and weight loss, Eyes: Negative for injury, kdr pain, redness, and discharge, Neck: Negative for injury, pain, and swelling, Cardiovascular: Negative for chest pain, palpitations, and edema, Respiratory: Negative for shortness of breath, cough, wheezing, and pleuritic chest pain, Abdomen/GI: Negative for abdominal pain, nausea, vomiting, diarrhea, and constipation, Back: Negative for injury and pain, Skin: Negative for injury, rash, and discoloration, Neuro: Negative for headache, weakness, numbness, tingling, and seizure activity. Psych: Negative for depression, anxiety, suicide ideation, homicidal ideation, and hallucinations, Allergy/Immunology: Negative for hives, rash, and allergies, Endocrine: Negative for neck swelling, polydipsia, polyuria, polyphagia, and marked weight changes, Hematologic/Lymphatic: Negative for swollen nodes, abnormal bleeding, and unusual bruising. Exam: 02:35 Constitutional: This is a well developed, well nourished patient who is awake, alert, kdr and in no acute distress. Head/Face: Normocephalic, atraumatic. Eyes: Pupils equal round and reactive to light, extra-ocular motions intact. Lids and lashes normal. Conjunctiva and sclera are non-icteric and not injected. Cornea within normal limits. Periorbital areas with no swelling, redness, or edema. Neck: Trachea midline, no thyromegaly or masses palpated, and no cervical lymphadenopathy. Supple, full range of motion without nuchal rigidity, or vertebral point tenderness. No Meningismus. Chest/axilla: Normal chest wall appearance and motion. Nontender with no deformity. No lesions are appreciated. Cardiovascular: Regular rate and rhythm with a normal S1 and S2. No gallops, murmurs, or rubs. Normal PMI, no JVD. No pulse deficits. Respiratory: Lungs have equal breath sounds bilaterally, clear to auscultation and percussion. No rales, rhonchi or wheezes noted. No increased work of breathing, no retractions or nasal flaring. Abdomen/GI: Soft, non-tender, with normal bowel sounds. No distension or tympany. No guarding or rebound. No evidence of tenderness throughout. Back: No spinal tenderness. No costovertebral tenderness. Full range of motion. Skin: Warm, dry with normal turgor. Normal color with no rashes, no lesions, and no evidence of cellulitis. MS/ Extremity: Pulses equal, no cyanosis. Neurovascular intact. Full, normal range of motion. Neuro: Awake and alert, GCS 15, oriented to person, place, time, and situation. Cranial nerves II-XII grossly intact. Motor strength 5/5 in all extremities. Sensory grossly intact. Cerebellar exam normal. Normal gait. Psych: Awake, alert, with orientation to person, place and time. Behavior, mood, and affect are within normal limits. Vital Signs: 01:35 BP 132 / 99; Pulse 86; Resp 16 S; Temp 97.2(TE); Pulse Ox 100% on R/A; Weight 68.36 kg jd3 (R); Height 5 ft. 7 in. (170.18 cm) (R); Pain 7/10; 04:00 BP 119 / 76; Pulse 74; Resp 16 S; Pulse Ox 99% on R/A; jd3 01:35 Body Mass Index 23.60 (68.36 kg, 170.18 cm) jd3 MDM: 02:35 Data reviewed: vital signs, nurses notes. kdr 04:21 Patient medically screened. kdr 04/19 02:18 Order name: Troponin (emerg Dept Use Only); Complete Time: 04:12 kdr 04/19 01:39 Order name: EKG; Complete Time: 01:40 jd3 04/19 01:34 Order name: EKG Strip; Complete Time: 01:51 kdr Administered Medications: No medications were administered Disposition: 04/19/18 04:21 Discharged to Home. Impression: Chest pain, unspecified. - Condition is Stable. - Discharge Instructions: Nonspecific Chest Pain, [id number]. - Medication Reconciliation Form, Thank You Letter form. - Follow up: Private Physician; When: 2 - 3 days; Reason: If symptoms return, Further diagnostic work-up, Recheck today's complaints, Continuance of care, Re-evaluation by your physician. - Problem is new. - Symptoms have improved. Signatures: Dispatcher [employer] EDMS Boris Olivera MD MD kdr Antunez, Elena, RN RN ea Davies, Jonathon, RN RN jd3 Corrections: (The following items were deleted from the chart) 04:34 04:21 04/19/2018 04:21 Discharged to Home. Impression: Chest pain, unspecified. ea Condition is Stable. Forms are Medication Reconciliation Form, Thank You Letter, Antibiotic Education, Prescription Opioid Use. Follow up: Private Physician; When: 2 - 3 days; Reason: If symptoms return, Further diagnostic work-up, Recheck today's complaints, Continuance of care, Re-evaluation by your physician. Problem is new. Symptoms have improved. kdr
--- NOTE | 2018-04-19 04:22 | ER ---
Nurse's Notes [facility] Name: Sidra Hodges Age: 43 yrs Sex: Female : 1975 Arrival Date: 04/19/2018 Time: : Bed 5 Private MD: Diagnosis: Chest pain, unspecified Presentation: 04/19 01:28 Presenting complaint: EMS states: "She is complaining of nonsymptomatic chest pain.". jd3 Transition of care: patient was not received from another setting of care. Onset of symptoms was April 19, 2018. Risk Assessment: Do you want to hurt yourself or someone else? Patient reports no desire to harm self or others. Initial Sepsis Screen: Does the patient meet any 2 criteria? No. Patient's initial sepsis screen is negative. Does the patient have a suspected source of infection? No. Patient's initial sepsis screen is negative. Care prior to arrival: None. 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 - Social history:: Smoking status: Patient/guardian denies using tobacco. - Ebola Screening: : Patient negative for fever greater than or equal to 101.5 degrees Fahrenheit, and additional compatible Ebola Virus Disease symptoms. Screenin:38 Abuse screen: Denies threats or abuse. Nutritional screening: No deficits noted. jd3 Tuberculosis screening: No symptoms or risk factors identified. Fall Risk Ambulatory Aid- None/Bed Rest/Nurse Assist (0 pts). Gait- Normal/Bed Rest/Wheelchair (0 pts) Mental Status- Oriented to own ability (0 pts). Total Davidson Fall Scale indicates No Risk (0-24 pts). Assessment: 01:36 General: Appears in no apparent distress. uncomfortable, Behavior is calm, cooperative. jd3 Pain: Complains of pain in chest and left arm Quality of pain is described as aching. Neuro: Level of Consciousness is awake, alert, obeys commands, Oriented to person, place, time, situation. Cardiovascular: Heart tones S1 S2 present Capillary refill < 3 seconds Patient's skin is warm and dry. Rhythm is regular. Respiratory: Airway is patent Respiratory effort is even, unlabored, Respiratory pattern is regular, symmetrical, Breath sounds are clear bilaterally. GI: Abdomen is round non-distended, Patient currently denies abdominal pain, nausea, vomiting. : No signs and/or symptoms were reported regarding the genitourinary system. EENT: No signs and/or symptoms were reported regarding the EENT system. Derm: Skin is intact, Skin is dry, Skin is normal, Skin temperature is warm. Musculoskeletal: Circulation, motion, and sensation intact. Range of motion: intact in all extremities. 02:30 Reassessment: Patient appears in no apparent distress at this time. No changes from jd3 previously documented assessment. Patient and/or family updated on plan of care and expected duration. Pain level reassessed. Patient is alert, oriented x 3, equal unlabored respirations, skin warm/dry/pink. 03:30 Reassessment: Patient appears in no apparent distress at this time. No changes from jd3 previously documented assessment. Patient and/or family updated on plan of care and expected duration. Pain level reassessed. Patient is alert, oriented x 3, equal unlabored respirations, skin warm/dry/pink. 04:08 Reassessment: Patient appears in no apparent distress at this time. No changes from jd3 previously documented assessment. Patient and/or family updated on plan of care and expected duration. Pain level reassessed. Patient is alert, oriented x 3, equal unlabored respirations, skin warm/dry/pink. 04:32 Reassessment: Patient and/or family updated on plan of care and expected duration. Pain ea level reassessed. Patient is alert, oriented x 3, equal unlabored respirations, skin warm/dry/pink. Discharge instructions given to patient, verbalized the understanding of instruction. Vital Signs: 01:35 BP 132 / 99; Pulse 86; Resp 16 S; Temp 97.2(TE); Pulse Ox 100% on R/A; Weight 68.36 kg jd3 (R); Height 5 ft. 7 in. (170.18 cm) (R); Pain 7/10; 04:00 BP 119 / 76; Pulse 74; Resp 16 S; Pulse Ox 99% on R/A; jd3 01:35 Body Mass Index 23.60 (68.36 kg, 170.18 cm) jd3 ED Course: 01:27 Patient arrived in ED. ak1 01:27 Dariusz Nunez, RN is Primary Nurse. jd3 01:29 Triage completed. jd3 01:31 Boris Olivera MD is Attending Physician. kdr 01:31 Arm band placed on. jd3 01:38 Patient has correct armband on for positive identification. Bed in low position. Call j light in reach. Side rails up X 1. 01:48 EKG done, by ED staff, reviewed by Boris Olivera MD done by Jeannette MELTON. jd3 04:33 No provider procedures requiring assistance completed. Patient admitted, IV remains in ea place. Administered Medications: No medications were administered Outcome: 04:21 Discharge ordered by . kdr 04:33 Discharged to lobby awaiting on transportation ea 04:33 Condition: good 04:33 Discharge instructions given to patient, Instructed on discharge instructions, follow up and referral plans. Demonstrated understanding of instructions, follow-up care. 04:34 Patient left the ED. ea Signatures: Boris Olivera MD MD kdr Jeannette Zeng RN RN ak1 Kesha May RN RN ea Dariusz Nunez, GERONIMO RN jd3 Corrections: (The following items were deleted from the chart) 02:08 01:36 Cardiovascular: Heart tones S1 S2 present Capillary refill < 3 seconds Patient's jd3 skin is warm and dry. jd3
--- NOTE | 2018-04-20 19:17 | EKG ---
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
== END 2018-04-19 04:34 | disposition home or self-care (01) ==
LOC: ER 01:25
DX: R07.9 Chest pain, unspecified (principal); G40.909 Epilepsy, unspecified, not intractable, without status epilepticus; F31.9 Bipolar disorder, unspecified; F32.9 Major depressive disorder, single episode, unspecified
CPT/HCPCS: 36415; 84484; 93005; 99283

== ENCOUNTER 2018-04-21 19:55 | Emergency (ER) | payer SELFPAY ==
--- NOTE | 2018-04-21 20:49 | ER ---
Nurse's Notes [facility] Name: Sidra Hodges Age: 43 yrs Sex: Female : 1975 Arrival Date: 04/21/2018 Time: 19:59 Bed 12 Private MD: Diagnosis: Anxiety disorder, unspecified;Malingerer [conscious simulation] Presentation: 04/21 20:15 Presenting complaint: Patient states: anxiety due to mother and sister being out of [address] and no one home. Transition of care: patient was not received from another setting of care. Onset of symptoms is unknown. Risk Assessment: Do you want to hurt yourself or someone else? Patient reports no desire to harm self or others. Initial Sepsis Screen: Does the patient meet any 2 criteria? No. Patient's initial sepsis screen is negative. Does the patient have a suspected source of infection? No. Patient's initial sepsis screen is negative. Care prior to arrival: None. 20:15 Method Of Arrival: EMS: [facility] 20:15 Acuity: CARMITA 5 ak1 Triage Assessment: 20:16 General: Appears in no apparent distress. Behavior is calm, cooperative. Pain: Denies ak pain. 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 - Social history:: Smoking status: Patient/guardian denies using tobacco. - Ebola Screening: : No symptoms or risks identified at this time. Screenin:04 Abuse screen: Denies threats or abuse. Nutritional screening: No deficits noted. tl3 Tuberculosis screening: No symptoms or risk factors identified. Fall Risk None identified. Vital Signs: 20:16 BP 124 / 91; Pulse 91; Resp 18; Temp 98; Pulse Ox 99% on R/A; Weight 74.84 kg; Height 4 ak1 ft. 6 in. (137.16 cm); Pain 0/10; 20:16 Body Mass Index 39.78 (74.84 kg, 137.16 cm) ak1 ED Course: 19:59 Patient arrived in ED. al2 20:16 Triage completed. ak1 20:16 Arm band placed on Patient placed in waiting room, Patient notified of wait time. ak1 20:47 Tom Petersen MD is Attending Physician. gs 21:04 Patient has correct armband on for positive identification. tl3 21:04 No provider procedures requiring assistance completed. Patient did not have IV access tl3 during this emergency room visit. Administered Medications: No medications were administered Outcome: 20:49 Discharge ordered by . 21:04 Discharged to home ambulatory. tl3 21:04 Condition: stable 21:04 Discharge instructions given to patient, Instructed on discharge instructions, Demonstrated understanding of instructions, follow-up care. 21:07 Patient left the ED. tl3 Signatures: Jeannette Zeng RN RN ak1 Tom Petersen MD MD Aimee Feliz ndAllie Lindsey, RN RN tl3
--- NOTE | 2018-04-22 21:07 | EDPHYS ---
Physician Documentation [facility] Name: Sidra Hodges Age: 43 yrs Sex: Female : 1975 Arrival Date: 04/21/2018 Time: 19:59 Bed 12 Private MD: ED Physician Tom Petersen HPI: 04/21 21:13 This 43 yrs old Female presents to ER via EMS with complaints of Anxiety. gs 21:13 Onset: The symptoms/episode began/occurred today. Associated signs and symptoms: gs Pertinent negatives: abdominal pain, chest pain, delusions. Severity of symptoms: At their worst the symptoms were mild in the emergency department the symptoms are unchanged. The patient has experienced similar episodes in the past, chronically. 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 - Social history:: Smoking status: Patient/guardian denies using tobacco. - Ebola Screening: : No symptoms or risks identified at this time. ROS: 21:13 All other systems are negative. gs Exam: 21:13 Head/Face: Normocephalic, atraumatic. Eyes: Pupils equal round and reactive to light, gs extra-ocular motions intact. Lids and lashes normal. Conjunctiva and sclera are non-icteric and not injected. Cornea within normal limits. Periorbital areas with no swelling, redness, or edema. ENT: Nares patent. No nasal discharge, no septal abnormalities noted. Tympanic membranes are normal and external auditory canals are clear. Oropharynx with no redness, swelling, or masses, exudates, or evidence of obstruction, uvula midline. Mucous membranes moist. Neck: Trachea midline, no thyromegaly or masses palpated, and no cervical lymphadenopathy. Supple, full range of motion without nuchal rigidity, or vertebral point tenderness. No Meningismus. Chest/axilla: Normal chest wall appearance and motion. Nontender with no deformity. No lesions are appreciated. Cardiovascular: Regular rate and rhythm with a normal S1 and S2. No gallops, murmurs, or rubs. Normal PMI, no JVD. No pulse deficits. Respiratory: Lungs have equal breath sounds bilaterally, clear to auscultation and percussion. No rales, rhonchi or wheezes noted. No increased work of breathing, no retractions or nasal flaring. Abdomen/GI: Soft, non-tender, with normal bowel sounds. No distension or tympany. No guarding or rebound. No evidence of tenderness throughout. Back: No spinal tenderness. No costovertebral tenderness. Full range of motion. Skin: Warm, dry with normal turgor. Normal color with no rashes, no lesions, and no evidence of cellulitis. MS/ Extremity: Pulses equal, no cyanosis. Neurovascular intact. Full, normal range of motion. 21:13 Constitutional: The patient appears alert, awake. Vital Signs: 20:16 BP 124 / 91; Pulse 91; Resp 18; Temp 98; Pulse Ox 99% on R/A; Weight 74.84 kg; Height 4 ak1 ft. 6 in. (137.16 cm); Pain 0/10; 20:16 Body Mass Index 39.78 (74.84 kg, 137.16 cm) ak1 MDM: 20:48 Patient medically screened. 21:13 Data reviewed: vital signs, nurses notes. Administered Medications: No medications were administered Disposition: 04/21/18 20:49 Discharged to Home. Impression: Anxiety disorder, unspecified, Malingerer [conscious simulation]. - Condition is Stable. - Discharge Instructions: Generalized Anxiety Disorder. - Medication Reconciliation Form, Thank You Letter, Antibiotic Education, Prescription Opioid Use form. - Follow up: Private Physician; When: 2 - 3 days; Reason: Re-evaluation by your physician. Signatures: Jeannette Zeng RN RN ak1 Tom Petersen MD MD Allie Worthington RN RN tl3 Corrections: (The following items were deleted from the chart) 21:07 20:49 04/21/2018 20:49 Discharged to Home. Impression: Anxiety disorder, unspecified; tl3 Malingerer [conscious simulation]. Condition is Stable. Forms are Medication Reconciliation Form, Thank You Letter, Antibiotic Education, Prescription Opioid Use. Follow up: Private Physician; When: 2 - 3 days; Reason: Re-evaluation by your physician. gs
== END 2018-04-21 21:07 | disposition home or self-care (01) ==
LOC: ER 19:55
DX: F41.8 Other specified anxiety disorders (principal); Z76.5 Malingerer [conscious simulation]
CPT/HCPCS: 99283

== ENCOUNTER 2018-04-23 15:21 | Emergency (ER) | payer SELFPAY ==
[2018-04-23] MEDS ORDERED: DIAZEPAM 5 MG TABLET ONE (15:41)
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
== END 2018-04-23 16:52 | disposition home or self-care (01) ==
LOC: ER 15:21
DX: F41.9 Anxiety disorder, unspecified (principal); F43.23 Adjustment disorder with mixed anxiety and depressed mood; G40.909 Epilepsy, unspecified, not intractable, without status epilepticus
CPT/HCPCS: 99283

== ENCOUNTER 2018-04-29 09:53 | Emergency (ER) | payer SELFPAY ==
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
--- NOTE | 2018-04-29 11:01 | ER ---
Nurse's Notes [facility] Name: Sidra Hodges Age: 43 yrs Sex: Female : 1975 Arrival Date: 04/29/2018 Time: 09:58 Bed 13 Private MD: Diagnosis: Person with feared health complaint in whom no diagnosis is made Presentation: 04/29 10:00 Presenting complaint: Patient states: Shaking uncontrollable and having back pain that sg started this morning, denies trauma or injury. Transition of care: patient was not received from another setting of care. Onset of symptoms was April 29, 2018. Risk Assessment: Do you want to hurt yourself or someone else? Patient reports no desire to harm self or others. Initial Sepsis Screen: Does the patient meet any 2 criteria? Yes Does the patient have a suspected source of infection? No. Patient's initial sepsis screen is negative. Care prior to arrival: None. 10:00 Method Of Arrival: EMS: [facility] sg 10:00 Acuity: CARMITA 4 sg Historical: - Allergies: 10:25 NKA; sg - Home Meds: 10:25 Abilify 10 mg Oral tab 1 tab once daily [Active]; Depakote 500 mg Oral tab 1 tab in the sg morning and 2 tabs nightly [Active]; oxcarbazepine 300 mg Oral tab 1 tab 2 times per day [Active]; - PMHx: 10:25 Anxiety; Bipolar disorder; Depression; epilepsy; hemorrhoids; sg - PSHx: 10:25 Unable to obtain; sg - Immunization history:: Adult Immunizations unknown. - Social history:: Smoking status: Patient/guardian denies using tobacco. - Ebola Screening: : Patient negative for fever greater than or equal to 101.5 degrees Fahrenheit, and additional compatible Ebola Virus Disease symptoms Patient denies exposure to infectious person Patient denies travel to an Ebola-affected area in the 21 days before illness onset No symptoms or risks identified at this time. Screenin:00 Abuse screen: Denies threats or abuse. Denies injuries from another. Nutritional sg screening: No deficits noted. Tuberculosis screening: No symptoms or risk factors identified. Never had TB. Fall Risk None identified. Vital Signs: 10:00 BP 144 / 72; Pulse 89; Resp 17; Temp 98.1; Pulse Ox 99% on R/A; sg ED Course: :58 Patient arrived in ED. kb 09:58 Crist[facility] Sewell [facility]C [facility] kb 09:58 Yong Banks MD is Attending Physician. kb 10:05 Blanco Davis, RN is Primary Nurse. sg 10:06 Diet: turkey sandwich, chips and a drink given to pt. pt tolerated well, no assistance sg required, pt to be discharged as ordered. 10:23 Triage completed. sg Administered Medications: No medications were administered Outcome: 10:00 Discharge ordered by . kb 11:00 Patient left the ED. bd Signatures: Cristina Sewell FNP-C FNP-Dorcas Stoll Steven, RN RN sg
== END 2018-04-29 11:00 | disposition home or self-care (01) ==
LOC: ER 09:53
DX: Z71.1 Person with feared health complaint in whom no diagnosis is made (principal); F41.8 Other specified anxiety disorders; G40.909 Epilepsy, unspecified, not intractable, without status epilepticus
CPT/HCPCS: 99282

== ENCOUNTER 2018-04-30 11:20 | Emergency (ER) | payer SELFPAY ==
--- NOTE | 2018-04-30 13:06 | EDPHYS ---
Physician Documentation [facility] Name: Sidra Hodges Age: 43 yrs Sex: Female : 1975 Arrival Date: 04/30/2018 Time: 11:25 Bed 20 Private MD: ED Physician Yong Banks HPI: 04/30 11:33 This 43 yrs old Female presents to ER via EMS with complaints of homeless. rn 11:33 Reports twister hand called because she has been recently homeless, [facility] but [facility], so stayed on the streets last night, someone called twister hand on her. She reports her regular hemorrhoidal bleeding but nothing else acute. REports mother's boyfriend uncomfortable with her staying with them, so doesn't have a current plan for where she is going to stay. . Onset: The symptoms/episode began/occurred at an unknown time. Severity of symptoms: At their worst the symptoms were very mild in the emergency department the symptoms are unchanged. The patient has experienced similar episodes in the past. The patient has been recently seen at the [facility] Emergency Department. Historical: - Allergies: 11:34 NKA; sv - PMHx: 11:34 Anxiety; Bipolar disorder; Depression; epilepsy; hemorrhoids; sv - PSHx: 11:34 Unable to obtain; sv - Immunization history:: Adult Immunizations up to date. - Social history:: Smoking status: Patient/guardian denies using tobacco. - Ebola Screening: : No symptoms or risks identified at this time. - Family history:: not pertinent. - Hospitalizations: : No recent hospitalization is reported. ROS: 11:33 Constitutional: Negative for fever, chills, and weight loss, Eyes: Negative for injury, rn pain, redness, and discharge, Neck: Negative for injury, pain, and swelling, Cardiovascular: Negative for chest pain, palpitations, and edema, Respiratory: Negative for shortness of breath, cough, wheezing, and pleuritic chest pain, Abdomen/GI: Negative for abdominal pain, nausea, vomiting, diarrhea, and constipation, MS/Extremity: Negative for injury and deformity, Skin: Negative for injury, rash, and discoloration, Neuro: Negative for headache, weakness, numbness, tingling, and seizure. Exam: 11:33 Constitutional: This is a well developed, well nourished patient who is awake, alert, rn tearful Head/Face: Normocephalic, atraumatic. Eyes: Pupils equal round and reactive to light, extra-ocular motions intact. Lids and lashes normal. Conjunctiva and sclera are non-icteric and not injected. Cornea within normal limits. Periorbital areas with no swelling, redness, or edema. Cardiovascular: Regular rate and rhythm with a normal S1 and S2. No gallops, murmurs, or rubs. Normal PMI, no JVD. No pulse deficits. Respiratory: Lungs have equal breath sounds bilaterally, clear to auscultation and percussion. No rales, rhonchi or wheezes noted. No increased work of breathing, no retractions or nasal flaring. Abdomen/GI: Soft, non-tender, with normal bowel sounds. No distension or tympany. No guarding or rebound. No evidence of tenderness throughout. Back: No spinal tenderness. No costovertebral tenderness. Full range of motion. MS/ Extremity: Pulses equal, no cyanosis. Neurovascular intact. Full, normal range of motion. Equal circumference. Neuro: Awake and alert, GCS 15, oriented to person, place, time, and situation. Cranial nerves II-XII grossly intact. Motor strength 5/5 in all extremities. Sensory grossly intact. Cerebellar exam normal. Normal gait. Vital Signs: 11:30 BP 110 / 77; Pulse 87; Resp 18; Pulse Ox 99% ; sv 13:08 BP 108 / 70; Pulse 80; Resp 17; Pulse Ox 100% ; sv MDM: 11:26 Patient medically screened. rn 13:04 Differential Diagnosis homelessness, depression. Data reviewed: vital signs, nurses rn notes, and as a result, I will discharge patient. Counseling: I had a detailed discussion with the patient and/or guardian regarding: the historical points, exam findings, and any diagnostic results supporting the discharge/admit diagnosis, the need for outpatient follow up, to return to the emergency department if symptoms worsen or persist or if there are any questions or concerns that arise at home. Special discussion: I discussed with the patient/guardian in detail that at this point there is no indication for admission to the hospital. It is understood, however, that if the symptoms persist or worsen the patient needs to return immediately for re-evaluation. ED course: [facility], and even long-term in [place], she has gotten herself kicked out of them and in banned because aggressive, will dc, given care package with a few basics. . 04/30 11:31 Order name: Diet Regular; Complete Time: :31 sv Administered Medications: No medications were administered Disposition: 04/30/18 13:05 Discharged to Home. Impression: Homelessness. - Condition is Stable. - Medication Reconciliation Form, Thank You Letter, Antibiotic Education, Prescription Opioid Use form. - Follow up: Private Physician; When: As needed; Reason: Recheck today's complaints, Re-evaluation by your physician. - Problem is an ongoing problem. - Symptoms are unchanged. Signatures: Samantha Pitts RN RN Yong Valenzuela MD MD resident intern: (The following items were deleted from the chart) 13:29 13:05 04/30/2018 13:05 Discharged to Home. Impression: Homelessness. Condition is sv Stable. Forms are Medication Reconciliation Form, Thank You Letter, Antibiotic Education, Prescription Opioid Use. Follow up: Private Physician; When: As needed; Reason: Recheck today's complaints, Re-evaluation by your physician. Problem is an ongoing problem. Symptoms are unchanged. rn
--- NOTE | 2018-04-30 13:06 | ER ---
Nurse's Notes [facility] Name: Sidra Hodges Age: 43 yrs Sex: Female : 1975 Arrival Date: 04/30/2018 Time: 11:25 Bed 20 Private MD: Diagnosis: Homelessness Presentation: 04/30 11:12 Presenting complaint: EMS states: pt was waiting for the transit bus and EMS was called sv because she told the PD that she was hurting. Transition of care: patient was not received from another setting of care. Onset of symptoms was April 30, 2018. Risk Assessment: Do you want to hurt yourself or someone else? Patient reports no desire to harm self or others. Initial Sepsis Screen: Does the patient meet any 2 criteria? No. Patient's initial sepsis screen is negative. Does the patient have a suspected source of infection? No. Patient's initial sepsis screen is negative. Care prior to arrival: None. 11:12 Method Of Arrival: EMS: [facility] sv 11:12 Acuity: CARMITA 4 sv Triage Assessment: 11:12 General: Appears in no apparent distress. comfortable, Behavior is cooperative. Pain: sv Denies pain. EENT: No signs and/or symptoms were reported regarding the EENT system. Neuro: Level of Consciousness is awake, alert, obeys commands, Oriented to person, place, time, situation, Moves all extremities. Full function Gait is steady. Respiratory: Airway is patent Respiratory effort is even, unlabored, Respiratory pattern is regular, symmetrical. GI: Reports hemorrhoids. Derm: Skin is pink, warm \T\ dry. Historical: - Allergies: 11:34 NKA; sv - PMHx: 11:34 Anxiety; Bipolar disorder; Depression; epilepsy; hemorrhoids; sv - PSHx: 11:34 Unable to obtain; sv - Immunization history:: Adult Immunizations up to date. - Social history:: Smoking status: Patient/guardian denies using tobacco. - Ebola Screening: : No symptoms or risks identified at this time. - Family history:: not pertinent. - Hospitalizations: : No recent hospitalization is reported. Screenin:39 Abuse screen: Denies threats or abuse. Denies injuries from another. Nutritional sv screening: No deficits noted. Tuberculosis screening: No symptoms or risk factors identified. Fall Risk None identified. Assessment: 11:55 Reassessment: [facility] called at , and spoke with Kristi. She sv stated that they are unable to accept her d/t mental state and she is unable to be around the children in the correction. She stated they have tried to do everything that they could to help her. 12:00 Reassessment: Kaitlyn Schilling called and stated that she was kicked out of their placed sv by the PD d/t her being aggressive. 12:20 Reassessment: Patient appears in no apparent distress at this time. No changes from sv previously documented assessment. Patient and/or family updated on plan of care and expected duration. Pain level reassessed. Patient is alert, oriented x 3, equal unlabored respirations, skin warm/dry/pink. 13:27 Reassessment: Patient appears in no apparent distress at this time. No changes from sv previously documented assessment. Patient and/or family updated on plan of care and expected duration. Pain level reassessed. Patient is alert, oriented x 3, equal unlabored respirations, skin warm/dry/pink. Vital Signs: 11:30 BP 110 / 77; Pulse 87; Resp 18; Pulse Ox 99% ; sv 13:08 BP 108 / 70; Pulse 80; Resp 17; Pulse Ox 100% ; sv ED Course: 11:12 Arm band placed on Patient placed in an exam room. sv 11:25 Patient arrived in ED. rn 11:25 Yong Banks MD is Attending Physician. rn 11:30 Samantha Pitts RN is Primary Nurse. sv 11:33 Triage completed. sv 12:39 Patient has correct armband on for positive identification. sv 13:28 No provider procedures requiring assistance completed. Patient did not have IV access sv during this emergency room visit. Administered Medications: No medications were administered Outcome: 13:05 Discharge ordered by . rn 13:28 Discharged to home ambulatory. sv 13:28 Condition: stable 13:28 Discharge instructions given to patient, Instructed on discharge instructions, follow up and referral plans. Demonstrated understanding of instructions, follow-up care. 13:29 Patient left the ED. sv Signatures: Samantha Pitts RN RN sv Yong Banks MD MD rn
== END 2018-04-30 13:29 | disposition home or self-care (01) ==
LOC: ER 11:20
DX: Z59.0 Homelessness (principal)
CPT/HCPCS: 99283

== ENCOUNTER 2018-05-01 07:56 | Emergency (ER) | payer SELFPAY ==
--- NOTE | 2018-05-01 08:58 | EDPHYS ---
Physician Documentation [facility] Name: Sidra Hodges Age: 43 yrs Sex: Female : 1975 Arrival Date: 05/01/2018 Time: 07:58 Bed 15 Private MD: ED Physician Boris Olivera HPI: 05/01 08:45 This 43 yrs old Female presents to ER via EMS with complaints of unknown. kdr 08:45 The patient was brought by EMS, unknown who call or for what reason. She was seen here kdr yesterday for chest and abdominal pain. She was discharged at that time. Today, she refuses to be examined by me or any non-Lux[place]ish speaking provider. I attempted to use a mathematics professor (several of the ED techs) and she refused to allow further evaluation. During the course of our interaction, she began to have bleeding from her mouth. It appeared that she had bitten her tongue or lip. She continued to refuse evaluation and treatment. She would not allow nursing staff to take her VS or any other evaluation. 09:02 Onset: The symptoms/episode began/occurred at an unknown time. The patient refuses to kdr answer questions and be evaluated.. 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 - Social history:: Smoking status: Patient/guardian denies using tobacco, Patient/guardian denies using alcohol. - Ebola Screening: : Patient negative for fever greater than or equal to 101.5 degrees Fahrenheit, and additional compatible Ebola Virus Disease symptoms Patient denies exposure to infectious person Patient denies travel to an Ebola-affected area in the 21 days before illness onset. ROS: 09:02 Constitutional: The patient refused to be evaluated and to answer questions kdr Exam: 09:02 Constitutional: The patient refused to answer questions or be evaluated kdr Vital Signs: 08:15 hj 08:15 pt refused V/S; hj MDM: 08:57 Patient medically screened. kdr Administered Medications: No medications were administered Disposition: 05/01/18 08:57 Discharged to Home. Impression: Chest pain, unspecified, Abdominal and pelvic pain, Homelessness. - Condition is Stable. - Discharge Instructions: Abdominal Pain, Adult, [id number], Nonspecific Chest Pain, [id number]. - Medication Reconciliation Form, Thank You Letter form. - Follow up: Private Physician; When: 2 - 3 days; Reason: If symptoms return, Further diagnostic work-up, Recheck today's complaints, Continuance of care, Re-evaluation by your physician. - Problem is an acute exacerbation. - Symptoms are unchanged. Signatures: Boris Olivera MD MD [facility] Hi Rojo RN RN Corrections: (The following items were deleted from the chart) 09:03 08:57 05/01/2018 08:57 Discharged to Home. Impression: Chest pain, unspecified; hj Abdominal and pelvic pain; Homelessness. Condition is Stable. Forms are Medication Reconciliation Form, Thank You Letter, Antibiotic Education, Prescription Opioid Use. Follow up: Private Physician; When: 2 - 3 days; Reason: If symptoms return, Further diagnostic work-up, Recheck today's complaints, Continuance of care, Re-evaluation by your physician. Problem is an acute exacerbation. Symptoms are unchanged. kdr
--- NOTE | 2018-05-01 08:58 | ER ---
Nurse's Notes [facility] Name: Sidra Hodges Age: 43 yrs Sex: Female : 1975 Arrival Date: 05/01/2018 Time: 07:58 Bed 15 Private MD: Diagnosis: Chest pain, unspecified;Abdominal and pelvic pain;Homelessness Presentation: 05/01 08:11 Presenting complaint: EMS states: EMS was on scene to see that there was a cloth with hj blood she placed on her L arm, when assessed, no wound present; no complaints; A\T\O x 4;. Transition of care: patient was not received from another setting of care. Onset of symptoms was May 01, 2018. Risk Assessment: Do you want to hurt yourself or someone else? Patient reports no desire to harm self or others. Initial Sepsis Screen: Does the patient meet any 2 criteria? No. Patient's initial sepsis screen is negative. Does the patient have a suspected source of infection? Yes:. Care prior to arrival: None. 08:11 Method Of Arrival: EMS: [facility] 08:11 Acuity: CARMITA 4 Triage Assessment: 08:14 General: Appears in no apparent distress. uncomfortable, Behavior is cooperative, hj appropriate for age, flat. Pain: Denies pain. 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 - Social history:: Smoking status: Patient/guardian denies using tobacco, Patient/guardian denies using alcohol. - Ebola Screening: : Patient negative for fever greater than or equal to 101.5 degrees Fahrenheit, and additional compatible Ebola Virus Disease symptoms Patient denies exposure to infectious person Patient denies travel to an Ebola-affected area in the 21 days before illness onset. Screenin:14 Abuse screen: Denies threats or abuse. Denies injuries from another. Nutritional hj screening: No deficits noted. Tuberculosis screening: No symptoms or risk factors identified. Fall Risk None identified. Vital Signs: 08:15 hj 08:15 pt refused V/S; hj ED Course: 07:58 Patient arrived in ED. hj 07:59 Hi Rojo, RN is Primary Nurse. hj 08:03 Boris Olivera MD is Attending Physician. kdr 08:13 Triage completed. hj 08:15 Arm band placed on right wrist. hj 08:15 Patient has correct armband on for positive identification. Bed in low position. Call hj light in reach. Side rails up X 1. 09:01 No provider procedures requiring assistance completed. Patient did not have IV access hj during this emergency room visit. Administered Medications: No medications were administered Outcome: 08:57 Discharge ordered by . kdr 09:02 Discharged to home ambulatory. hj 09:02 Condition: stable 09:02 Discharge instructions given to patient, Instructed on discharge instructions, follow up and referral plans. Demonstrated understanding of instructions, follow-up care. 09:03 Patient left the ED. hj Signatures: Boris Olivera MD MD kdr Hi Rojo, RN RN
== END 2018-05-01 09:03 | disposition home or self-care (01) ==
LOC: ER 07:56
DX: R10.2 Pelvic and perineal pain (principal); Z59.0 Homelessness; F31.9 Bipolar disorder, unspecified; F32.9 Major depressive disorder, single episode, unspecified; F41.9 Anxiety disorder, unspecified; G40.909 Epilepsy, unspecified, not intractable, without status epilepticus
CPT/HCPCS: 99282

== ENCOUNTER 2018-05-14 05:26 | Emergency (ER) | payer SELFPAY ==
--- NOTE | 2018-05-14 06:11 | ER ---
Nurse's Notes [facility] Name: Sidra Hodges Age: 43 yrs Sex: Female : 1975 Arrival Date: 05/14/2018 Time: 05:31 Bed 7 Private MD: Diagnosis: Unspecified abdominal pain Presentation: 05/14 05:31 Presenting complaint: EMS states: "she says she is having abdominal pain.". Transition jd3 of care: patient was not received from another setting of care. Onset of symptoms was May 14, 2018. Risk Assessment: Do you want to hurt yourself or someone else? Patient reports no desire to harm self or others. Initial Sepsis Screen: Does the patient meet any 2 criteria? No. Patient's initial sepsis screen is negative. Does the patient have a suspected source of infection? No. Patient's initial sepsis screen is negative. Care prior to arrival: None. 05:31 Method Of Arrival: EMS: [facility] jd3 05:31 Acuity: CARMITA 4 jd3 Triage Assessment: 05:34 General: Appears in no apparent distress. comfortable, Behavior is calm, cooperative, cc3 appropriate for age. Pain: Complains of pain in abdominal pain. EENT: No signs and/or symptoms were reported regarding the EENT system. Neuro: Level of Consciousness is awake, alert, obeys commands, Oriented to person, place, time, situation, Appropriate for age. Cardiovascular: Denies chest pain. Respiratory: Airway is patent Respiratory effort is even, unlabored, Respiratory pattern is regular, symmetrical. GI: Abdomen is flat, non-distended. : No signs and/or symptoms were reported regarding the genitourinary system. Derm: No signs and/or symptoms reported regarding the dermatologic system. Musculoskeletal: Circulation, motion, and sensation intact. Range of motion: intact in all extremities. 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 - Social history:: Smoking status: Patient/guardian denies using tobacco. - Ebola Screening: : Patient negative for fever greater than or equal to 101.5 degrees Fahrenheit, and additional compatible Ebola Virus Disease symptoms. Screenin:34 Abuse screen: Denies threats or abuse. Denies injuries from another. Nutritional cc3 screening: No deficits noted. Tuberculosis screening: No symptoms or risk factors identified. Fall Risk Ambulatory Aid- None/Bed Rest/Nurse Assist (0 pts). Gait- Normal/Bed Rest/Wheelchair (0 pts) Mental Status- Oriented to own ability (0 pts). Assessment: 06:05 Reassessment: Patient not found in the room, patient eloped. Provider notified and cc3 charge nurse Ana Laura notified. Vital Signs: 05:36 BP 128 / 83; Pulse 79; Resp 18 S; Temp 99.3(O); Pulse Ox 100% on R/A; Weight 113.4 kg jd3 (R); Height 5 ft. 0 in. (152.40 cm) (R); Pain 5/10; 05:36 Body Mass Index 48.82 (113.40 kg, 152.40 cm) j ED Course: 05:31 Patient arrived in ED. jd3 05:34 Triage completed. jd3 05:34 Madeleine Solis is Primary Nurse. cc3 05:37 Arm band placed on. jd3 06:01 Verito Santos FNP-C [facility]. snw 06:01 Wliiam Adkins MD is Attending Physician. snw 06:05 No provider procedures requiring assistance completed. Patient did not have IV access cc3 during this emergency room visit. Administered Medications: No medications were administered Outcome: 06:05 Eloped from patient exam room, before seeing physician Time discovered patient gone: cc3 May 14, 2018 at 06:05 06:05 Condition: stable 06:18 Patient left the ED. cc3 Signatures: Verito Santos FNP-C FNP-Dariusz Ortiz RN RN j Madeleine Solis cc3
--- NOTE | 2018-05-14 06:11 | EDPHYS ---
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 - Social history:: Smoking status: Patient/guardian denies using tobacco. - Ebola Screening: : Patient negative for fever greater than or equal to 101.5 degrees Fahrenheit, and additional compatible Ebola Virus Disease symptoms. Vital Signs: 05:36 BP 128 / 83; Pulse 79; Resp 18 S; Temp 99.3(O); Pulse Ox 100% on R/A; Weight 113.4 kg jd3 (R); Height 5 ft. 0 in. (152.40 cm) (R); Pain 5/10; 05:36 Body Mass Index 48.82 (113.40 kg, 152.40 cm) jd3 MDM: 06:02 Patient medically screened. snw 06:06 Data reviewed: vital signs, nurses notes. snw 06:08 ED course: Pt left via the back door of the ED without explanation prior to full snw assessment. Administered Medications: No medications were administered Disposition: 05/14/18 06:10 Patient left the facility post triage evaluation and consult. Preliminary diagnosis is Unspecified abdominal pain. - Patient left due to unknown. - Condition is Stable. Signatures: Dispatcher [employer] EDMS Verito Santos, BRIAN EDGE DRUMMER-CsnDariusz Ballard RN RN jd3 Madeleine Solis cc3 Corrections: (The following items were deleted from the chart) 06:09 06:06 Special discussion: Based on the patient's Hx, exam, and Dx evaluation, there is sn no indication for emergent surgery or inpatient Tx. It is understood by the patient/guardian that if the Sx's persist or worsen they need to return immediately for re-evaluation. [facility] 06:13 06:02 Urine Test ordered. [facility] cc3 06:13 06:02 Urine Dipstick-Ancillary ordered. [facility] cc3 06:18 06:10 05/14/2018 06:10 Patient left the facility post triage evaluation and consult. cc3 Preliminary diagnosis is Unspecified abdominal pain. Reason stated they are leaving due to unknown. Condition is Stable. [facility]
== END 2018-05-14 06:18 | disposition left against medical advice (07) ==
LOC: ER 05:26
DX: Z53.21 Procedure and treatment not carried out due to patient leaving prior to being seen by health care provider (principal)
CPT/HCPCS: 99282

== ENCOUNTER 2018-05-15 21:00 | Emergency (ER) | payer SELFPAY ==
[2018-05-15 22:51] LABS: ALT/SGPT 23 U/L (12-78); AST/SGOT 30 U/L (15-37); Albumin 2.8 g/dL (3.4-5.0); Alkaline Phosphatase 75 U/L (45-117); BUN Blood Urea Nitrogen 14 mg/dL (7-18); Bicarbonate 30 mmol/L (21-32); Bilirubin Direct < 0.1 mg/dL (0-0.2); Bilirubin Total 0.1 mg/dL (0.2-1.0); Glucose Level 84 mg/dL (74-106); Lipase 139 U/L (73-393); Potassium 3.9 mmol/L (3.5-5.1); Protein, Total 7.2 g/dL (6.4-8.2); Sodium Level 141 mmol/L (136-145)
--- NOTE | 2018-05-16 00:56 | EDPHYS ---
Physician Documentation [facility] Name: Sidra Hodges Age: 43 yrs Sex: Female : 1975 Arrival Date: 05/15/2018 Time: 21:03 Bed 20 Private MD: ED Physician Yong Banks HPI: 05/16 00:02 This 43 yrs old Female presents to ER via EMS with complaints of Abdominal rn Pain. 00:02 The patient presents with abdominal pain in the epigastric area. Onset: The rn symptoms/episode began/occurred just prior to arrival. The symptoms do not radiate. Associated signs and symptoms: none. Severity of pain: At its worst the pain was mild in the emergency department the pain has improved. The patient has experienced similar episodes in the past. Reports abdominal pain, reports "attacks" in abdomen when gets upset, has these daily, is currently homeless and fighting with family who kicked her out, states police dont listen to her, and gets these attacks, no fever/vomiting/chest pain/diarrhea. . 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 - Social history:: Smoking status: Patient/guardian denies using tobacco. - Ebola Screening: : Patient denies travel to an Ebola-affected area in the 21 days before illness onset. - Family history:: not pertinent. - Hospitalizations: : No recent hospitalization is reported. ROS: 05/16 00:04 Constitutional: Negative for fever, chills, and weight loss, Eyes: Negative for injury, rn pain, redness, and discharge, Cardiovascular: Negative for chest pain, palpitations, and edema, Respiratory: Negative for shortness of breath, cough, wheezing, and pleuritic chest pain, Abdomen/GI: + abd pain, negative for vomiting/diarrhea MS/Extremity: Negative for injury and deformity, Skin: Negative for injury, rash, and discoloration, Neuro: Negative for headache, weakness, numbness, tingling, and seizure. Exam: 00:04 Constitutional: This is a well developed, well nourished patient who is awake, alert, rn and in no acute distress. Head/Face: Normocephalic, atraumatic. Cardiovascular: Regular rate and rhythm with a normal S1 and S2. No gallops, murmurs, or rubs. No JVD. No pulse deficits. Respiratory: Lungs have equal breath sounds bilaterally, clear to auscultation. No increased work of breathing, no retractions or nasal flaring. Abdomen/GI: Soft, non-tender, with normal bowel sounds. No distension or tympany. No guarding or rebound. No evidence of tenderness throughout. Skin: Warm, dry with normal turgor. Normal color with no rashes, no lesions, and no evidence of cellulitis. MS/ Extremity: Pulses equal, no cyanosis. Neurovascular intact. Full, normal range of motion. Equal circumference. Neuro: Awake and alert, GCS 15, oriented to person, place, time, and situation. Cranial nerves II-XII grossly intact. Motor strength 5/5 in all extremities. Sensory grossly intact. Cerebellar exam normal. Normal gait. Vital Signs: 05/15 21:25 BP 123 / 84; Pulse 73; Resp 18; Temp 97.2; Pulse Ox 100% on R/A; aj1 22:50 BP 130 / 70; Pulse 68; Resp 18; Pulse Ox 98% on R/A; ea 23:30 BP 128 / 60; Pulse 60; Resp 18; Pulse Ox 99% ; ea 05/16 00:45 BP 126 / 72; Pulse 70; Resp 18; Pulse Ox 99% ; ea 01:45 BP 130 / 68; Pulse 62; Resp 18; Pulse Ox 98% on R/A; ea MDM: 05/15 21:44 Patient medically screened. rn 05/16 00:54 Differential diagnosis: gastritis, gastroesophageal reflux disease, non-specific abd rn pain, pancreatitis, emotional attacks, anxiety. Data reviewed: vital signs, nurses notes, lab test result(s), EKG, and as a result, I will discharge patient. Counseling: I had a detailed discussion with the patient and/or guardian regarding: the historical points, exam findings, and any diagnostic results supporting the discharge/admit diagnosis, lab results, the need for outpatient follow up, to return to the emergency department if symptoms worsen or persist or if there are any questions or concerns that arise at home. Response to treatment: the patient's condition has returned to base line, and as a result, I will discharge patient. Special discussion: I discussed with the patient/guardian in detail that at this point there is no indication for admission to the hospital. It is understood, however, that if the symptoms persist or worsen the patient needs to return immediately for re-evaluation. ED course: Benign abd exam, normal bloodwork, no acute findings on ECG, will dc home as she reports these abd pain episodes assoc and related to when she is upset. . 05/15 21:51 Order name: Basic Metabolic Panel; Complete Time: 23:40 rn 05/15 21:51 Order name: Hepatic Function; Complete Time: 23:40 rn 05/15 21:51 Order name: Lipase; Complete Time: 23:40 rn 05/15 21:51 Order name: IV Saline Lock; Complete Time: 00:23 rn 05/15 21:51 Order name: EKG; Complete Time: 21:52 rn 05/15 21:51 Order name: Labs collected and sent; Complete Time: 22:34 rn 05/15 21:51 Order name: EKG - Nurse/Tech; Complete Time: 22:34 rn Administered Medications: No medications were administered Disposition: 05/16/18 00:55 Discharged to Home. Impression: Unspecified abdominal pain, Acute stress reaction. - Condition is Stable. - Discharge Instructions: Abdominal Pain, Adult, Stress and Stress Management. - Medication Reconciliation Form, Thank You Letter, Antibiotic Education, Prescription Opioid Use form. - Follow up: Private Physician; When: As needed; Reason: Recheck today's complaints, Re-evaluation by your physician. - Problem is chronic. - Symptoms have improved. Signatures: Dispatcher [employer] [facility] Nyla Luz, RN RN aj1 Yong Banks MD MD rn Antunez, Elena, RN RN ea Corrections: (The following items were deleted from the chart) 01:09 05/15 21:51 CBC+H.LAB.BRZ ordered. [facility] 05/16 02:02 00:55 05/16/2018 00:55 Discharged to Home. Impression: Unspecified abdominal pain; ea Acute stress reaction. Condition is Stable. Forms are Medication Reconciliation Form, Thank You Letter, Antibiotic Education, Prescription Opioid Use. Follow up: Private Physician; When: As needed; Reason: Recheck today's complaints, Re-evaluation by your physician. Problem is chronic. Symptoms have improved. rn
--- NOTE | 2018-05-16 00:56 | ER ---
Nurse's Notes [facility] Name: Sidra Hodges Age: 43 yrs Sex: Female : 1975 Arrival Date: 05/15/2018 Time: 21:03 Bed 20 Private MD: Diagnosis: Unspecified abdominal pain;Acute stress reaction Presentation: 05/15 21:21 Presenting complaint: Presenting complaint: Patient states: "I feel really bad and aj1 dizzy." Patient reports epigastric pain for the past hour. Denies N/V/D. 21:36 Transition of care: patient was not received from another setting of care. Onset of aj1 symptoms was May 15, 2018 at 20:30. Risk Assessment: Do you want to hurt yourself or someone else? Patient reports no desire to harm self or others. Initial Sepsis Screen: Does the patient meet any 2 criteria? No. Patient's initial sepsis screen is negative. Does the patient have a suspected source of infection? No. Patient's initial sepsis screen is negative. Care prior to arrival: None. 21:36 Method Of Arrival: EMS aj1 21:36 Acuity: CARMITA 3 aj1 Triage Assessment: 21:36 General: Appears in no apparent distress. comfortable, Behavior is calm, cooperative, aj1 appropriate for age. Pain: Complains of pain in epigastric area Pain. Pain: Pain currently is 10 out of 10 on a pain scale. Neuro: Level of Consciousness is awake, alert, obeys commands. Cardiovascular: Patient's skin is warm and dry. Respiratory: Airway is patent Respiratory effort is even, unlabored, Respiratory pattern is regular, symmetrical. GI: Reports upper abdominal pain, Patient currently denies diarrhea, nausea, vomiting. 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 - Social history:: Smoking status: Patient/guardian denies using tobacco. - Ebola Screening: : Patient denies travel to an Ebola-affected area in the 21 days before illness onset. - Family history:: not pertinent. - Hospitalizations: : No recent hospitalization is reported. Screenin:56 Abuse screen: Denies threats or abuse. Nutritional screening: No deficits noted. ea Tuberculosis screening: No symptoms or risk factors identified. Fall Risk IV access (20 points). Assessment: 22:00 Reassessment: see triage assessment. ea 23:50 Reassessment: Patient and/or family updated on plan of care and expected duration. Pain ea level reassessed. Patient is alert, oriented x 3, equal unlabored respirations, skin warm/dry/pink. Attempted to blood draw x 2 unable to obtain blood sample, phlebotomy notified. 05/16 00:19 Reassessment: Patient and/or family updated on plan of care and expected duration. Pain ea level reassessed. Patient is alert, oriented x 3, equal unlabored respirations, skin warm/dry/pink. 01:58 Reassessment: Patient and/or family updated on plan of care and expected duration. Pain ea level reassessed. Patient is alert, oriented x 3, equal unlabored respirations, skin warm/dry/pink. Discharge instructions given to patient, verbalized the understanding of instruction. Vital Signs: 05/15 21:25 BP 123 / 84; Pulse 73; Resp 18; Temp 97.2; Pulse Ox 100% on R/A; aj1 22:50 BP 130 / 70; Pulse 68; Resp 18; Pulse Ox 98% on R/A; ea 23:30 BP 128 / 60; Pulse 60; Resp 18; Pulse Ox 99% ; ea 05/16 00:45 BP 126 / 72; Pulse 70; Resp 18; Pulse Ox 99% ; ea 01:45 BP 130 / 68; Pulse 62; Resp 18; Pulse Ox 98% on R/A; ea ED Course: 05/15 21:03 Patient arrived in ED. al2 21:36 Arm band placed on Patient placed in an exam room. aj1 21:40 Triage completed. aj1 21:44 Yong Banks MD is Attending Physician. rn 21:52 Kesha May RN is Primary Nurse. ea 21:55 Patient has correct armband on for positive identification. Bed in low position. Call ea light in reach. Side rails up X 1. 23:22 Inserted saline lock: 24 gauge in right forearm, using aseptic technique. ea 05/16 01:40 No provider procedures requiring assistance completed. IV discontinued, intact, ea bleeding controlled, No redness/swelling at site. Pressure dressing applied. Administered Medications: No medications were administered Outcome: 00:55 Discharge ordered by . rn 01:[facility] in the AM ea 01:59 Condition: good 01:59 Discharge instructions given to patient, Instructed on discharge instructions, follow up and referral plans. Demonstrated understanding of instructions, follow-up care. 02:02 Patient left the ED. ea Signatures: Nyla Luz RN RN Yong Sneed MD MD rn Antunez, Elena RN Aimee Waters ea Corrections: (The following items were deleted from the chart) 05/15 21:40 21:21 Presenting complaint: aj1 aj1 05/16 02:02 05/15 01:45 BP 126 / 72; Pulse 70bpm; Resp 18bpm; Pulse Ox 99%; ea ea
--- NOTE | 2018-05-16 10:17 | EKG ---
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
== END 2018-05-16 02:02 | disposition home or self-care (01) ==
LOC: ER 21:00
DX: F43.0 Acute stress reaction (principal); F41.9 Anxiety disorder, unspecified; F31.9 Bipolar disorder, unspecified; F32.9 Major depressive disorder, single episode, unspecified; G40.909 Epilepsy, unspecified, not intractable, without status epilepticus
CPT/HCPCS: 80048; 80076; 83690; 93005; 99283

== ENCOUNTER 2018-06-04 22:14 | Emergency (ER) | payer SELFPAY ==
--- NOTE | 2018-06-04 22:39 | ER ---
Nurse's Notes [facility] Name: Sidra Hodges Age: 43 yrs Sex: Female : 1975 Arrival Date: 06/04/2018 Time: 22:15 Bed 26 Private MD: Diagnosis: Hemorrhoids and perianal venous thrombosis Presentation: 06/04 22:19 Presenting complaint: EMS states: patient is complaining of rectal pain/bleeding for 5 mg2 days. Transition of care: patient was not received from another setting of care. Onset of symptoms was May 2018. Risk Assessment: Do you want to hurt yourself or someone else? Patient reports no desire to harm self or others. Initial Sepsis Screen: Does the patient meet any 2 criteria? No. Patient's initial sepsis screen is negative. Does the patient have a suspected source of infection? No. Patient's initial sepsis screen is negative. Care prior to arrival: None. 22:19 Method Of Arrival: EMS: [facility] mg2 22:19 Acuity: CARMITA 3 mg2 Triage Assessment: 23:19 General: Appears comfortable, Behavior is calm, cooperative. Pain: Complains of pain in mg2 rectum. 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 - Social history:: Smoking status: unknown. - Ebola Screening: : No symptoms or risks identified at this time. Screenin:17 Abuse screen: Denies threats or abuse. Denies injuries from another. Nutritional mg2 screening: No deficits noted. Tuberculosis screening: No symptoms or risk factors identified. Fall Risk None identified. Assessment: 23:14 Reassessment: No changes from previously documented assessment. mg2 Vital Signs: 22:21 BP 122 / 90; Pulse 80; Resp 18; Temp 98.7; Pulse Ox 100% on R/A; mg2 ED Course: 22:15 Patient arrived in ED. am2 22:19 Wiliam Adkins MD is Attending Physician. tw4 22:19 Kojo Sarmiento, RN is Primary Nurse. mg2 22:21 Triage completed. mg2 23:18 Patient has correct armband on for positive identification. mg2 23:18 No provider procedures requiring assistance completed. Patient did not have IV access mg2 during this emergency room visit. 23:19 Arm band placed on. mg2 Administered Medications: No medications were administered Outcome: 22:39 Discharge ordered by . tw4 23:19 Discharged to home ambulatory. mg2 23:19 Condition: stable 23:19 Discharge instructions given to patient, Instructed on discharge instructions, follow up and referral plans. Demonstrated understanding of instructions, follow-up care. 23:20 Patient left the ED. mg2 Signatures: Kateryna Parker am2 Wiliam Adkins MD MD tw4 Kojo Sarmiento, RN RN mg2
--- NOTE | 2018-06-04 22:39 | EDPHYS ---
Physician Documentation [facility] Name: Sidra Hodges Age: 43 yrs Sex: Female : 1975 Arrival Date: 06/04/2018 Time: 22:15 Bed 26 Private MD: ED Physician Wiliam Adkins HPI: 06/05 03:51 This 43 yrs old Female presents to ER via EMS with complaints of rectal pain. tw4 03:51 The patient presents to the emergency department with pain in the rectal area, that is tw4 moderate. Onset: The symptoms/episode began/occurred today. Context: the patient has placed a foreign body into the rectum. Modifying factors: The symptoms are alleviated by nothing, The symptoms are aggravated by nothing. It is unknown whether or not the patient has had similar symptoms in the past. 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 - Social history:: Smoking status: unknown. - Ebola Screening: : No symptoms or risks identified at this time. ROS: 06/05 03:51 Constitutional: Negative for fever, chills, and weight loss, Eyes: Negative for injury, tw4 pain, redness, and discharge, Cardiovascular: Negative for chest pain, palpitations, and edema, Respiratory: Negative for shortness of breath, cough, wheezing, and pleuritic chest pain. Back: Negative for injury and pain, MS/Extremity: Negative for injury and deformity, Skin: Negative for injury, rash, and discoloration. Abdomen/GI: Positive for rectal pain. Exam: 03:51 Constitutional: This is a well developed, well nourished patient who is awake, alert, tw4 and in no acute distress. Head/Face: Normocephalic, atraumatic. Chest/axilla: Normal chest wall appearance and motion. Nontender with no deformity. No lesions are appreciated. Cardiovascular: Regular rate and rhythm with a normal S1 and S2. No gallops, murmurs, or rubs. Normal PMI, no JVD. No pulse deficits. Respiratory: Lungs have equal breath sounds bilaterally, clear to auscultation and percussion. No rales, rhonchi or wheezes noted. No increased work of breathing, no retractions or nasal flaring. 03:51 MS/ Extremity: Pulses equal, no cyanosis. Neurovascular intact. Full, normal range of motion. Neuro: Awake and alert, GCS 15, oriented to person, place, time, and situation. Cranial nerves II-XII grossly intact. Motor strength 5/5 in all extremities. Sensory grossly intact. Cerebellar exam normal. Normal gait. 03:51 Abdomen/GI: Inspection: abdomen appears normal, Bowel sounds: normal, Rectal exam: hemorrhoid(s), with inflammation, with pain, with thrombosis, swelling, that is moderate. Vital Signs: 06/04 22:21 BP 122 / 90; Pulse 80; Resp 18; Temp 98.7; Pulse Ox 100% on R/A; mg2 MDM: 22:19 Patient medically screened. tw4 06/05 03:51 Data reviewed: vital signs, nurses notes. Data interpreted: Pulse oximetry: tw4 Interpretation: normal. Counseling: I had a detailed discussion with the patient and/or guardian regarding: the historical points, exam findings, and any diagnostic results supporting the discharge/admit diagnosis. Special discussion: I discussed with the patient/guardian in detail that at this point there is no indication for admission to the hospital. It is understood, however, that if the symptoms persist or worsen the patient needs to return immediately for re-evaluation. Administered Medications: No medications were administered Disposition: 06/04/18 22:39 Discharged to Home. Impression: Hemorrhoids and perianal venous thrombosis. - Condition is Stable. - Discharge Instructions: Hemorrhoids. - Prescriptions for Anusol- HC 2.5 % Rectal Cream - Apply to affected area 1 application by TOPICAL route every 8 hours As needed; 30 gram. - Medication Reconciliation Form, Thank You Letter, Antibiotic Education, Prescription Opioid Use form. - Follow up: Private Physician; When: Upon discharge from the Emergency Department; Reason: Recheck today's complaints, Continuance of care. - Problem is new. - Symptoms have improved. Signatures: Wiliam Adkins MD MD tw4 Kojo Sarmiento, RN RN mg2 Corrections: (The following items were deleted from the chart) 06/04 23:20 22:39 06/04/2018 22:39 Discharged to Home. Impression: Hemorrhoids and perianal venous mg2 thrombosis. Condition is Stable. Forms are Medication Reconciliation Form, Thank You Letter, Antibiotic Education, Prescription Opioid Use. Follow up: Private Physician; When: Upon discharge from the Emergency Department; Reason: Recheck today's complaints, Continuance of care. Problem is new. Symptoms have improved. tw4
== END 2018-06-04 23:20 | disposition home or self-care (01) ==
LOC: ER 22:14
DX: K64.5 Perianal venous thrombosis (principal); K64.9 Unspecified hemorrhoids; F41.9 Anxiety disorder, unspecified; F32.9 Major depressive disorder, single episode, unspecified; F31.9 Bipolar disorder, unspecified
CPT/HCPCS: 99283

== ENCOUNTER 2018-06-21 13:31 | Emergency (ER) | payer SELFPAY ==
--- NOTE | 2018-06-21 15:58 | EDPHYS ---
Physician Documentation [facility] Name: Sidra Hodges Age: 43 yrs Sex: Female : 1975 Arrival Date: 06/21/2018 Time: 13:34 Bed 20 Private MD: ED Physician Vickie Lundberg HPI: 06/21 15:53 This 43 yrs old Female presents to ER via EMS with complaints of Hemorrhoids. jr8 15:53 The patient presents to the emergency department with pain in the rectal area. Onset: jr8 The symptoms/episode began/occurred acutely, 2 day(s) ago. Context: the patient has a known history of hemorrhoids. Modifying factors: The symptoms are alleviated by nothing, The symptoms are aggravated by bowel movement, sitting position. Associate signs and symptoms: The patient has no apparent associated signs or symptoms. The patient has experienced similar episodes in the past, a few times. The patient has not recently seen a physician. Historical: - Allergies: 14:09 NKA; sv - PMHx: 14:09 Anxiety; Bipolar disorder; Depression; epilepsy; hemorrhoids; sv - PSHx: 14:09 None; sv - Immunization history:: Adult Immunizations up to date. - Social history:: Smoking status: Patient/guardian denies using tobacco. - Ebola Screening: : No symptoms or risks identified at this time. ROS: 15:53 Eyes: Negative for injury, pain, redness, and discharge, ENT: Negative for injury, jr8 pain, and discharge, Neck: Negative for injury, pain, and swelling, Cardiovascular: Negative for chest pain, palpitations, and edema, Respiratory: Negative for shortness of breath, cough, wheezing, and pleuritic chest pain, Back: Negative for injury and pain, MS/Extremity: Negative for injury and deformity, Skin: Negative for injury, rash, and discoloration, Neuro: Negative for headache, weakness, numbness, tingling, and seizure. 15:53 Abdomen/GI: Positive for rectal pain, rectal bleeding, Negative for abdominal pain, nausea, vomiting, and diarrhea, abdominal distension, hematemesis, black/tarry stool, bowel incontinence, flatulence. Exam: 15:53 Constitutional: This is a well developed, well nourished patient who is awake, alert, jr8 and in no acute distress. Cardiovascular: Regular rate and rhythm with a normal S1 and S2. No gallops, murmurs, or rubs. Normal PMI, no JVD. No pulse deficits. Respiratory: Lungs have equal breath sounds bilaterally, clear to auscultation and percussion. No rales, rhonchi or wheezes noted. No increased work of breathing, no retractions or nasal flaring. Back: No spinal tenderness. No costovertebral tenderness. Full range of motion. Skin: Warm, dry with normal turgor. Normal color with no rashes, no lesions, and no evidence of cellulitis. MS/ Extremity: Pulses equal, no cyanosis. Neurovascular intact. Full, normal range of motion. Neuro: Awake and alert, GCS 15, oriented to person, place, time, and situation. Cranial nerves II-XII grossly intact. Motor strength 5/5 in all extremities. Sensory grossly intact. Cerebellar exam normal. Normal gait. 15:53 Abdomen/GI: Inspection: abdomen appears normal, Bowel sounds: active, all quadrants, Palpation: abdomen is soft and non-tender, in all quadrants, Rectal exam: rectal tone normal, Stool: brown, guaiac negative, hemorrhoid(s), external, without bleeding, without inflammation, without thrombosis, without pain, Internal hemorrhoids present with inflammation and pain , mass, is not appreciated, swelling, is not appreciated, fecal impaction, is not appreciated, the exam is chaperoned by the nurse, Indicators: McBurney's point is not tender, Lai's sign is negative, Liver: tenderness, is not appreciated. Vital Signs: 14:08 BP 140 / 103; Pulse 78; Resp 18; Temp 97; Pulse Ox 100% ; sv MDM: 15:40 Patient medically screened. [facility] 15:53 Data reviewed: vital signs, nurses notes, and as a result, I will discharge patient. [facility] Data interpreted: Pulse oximetry: on room air is 100 %. Interpretation: normal. 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 Administered Medications: No medications were administered Disposition: 16:57 Co-signature as Attending Physician, Vickie Lundberg MD. ma2 Disposition: 06/21/18 15:57 Discharged to Home. Impression: Hemorrhoids. - Condition is Stable. - Discharge Instructions: Hemorrhoids. - Prescriptions for Anusol- HC 25 mg Rectal Suppository - insert 1 suppository by RECTAL route every 12 hours As needed; 20 suppository. - Medication Reconciliation Form, Thank You Letter, Antibiotic Education, Prescription Opioid Use form. - Follow up: Gena Yang MD; When: 1 week; Reason: Recheck today's complaints, Continuance of care, Re-evaluation by your physician. - Problem is new. - Symptoms have improved. Signatures: Samantha Pitts, RN RN Samantha Morrell RN RN Franck Ellis PA PA jr8 Vickie Lundberg MD MD ma2 Corrections: (The following items were deleted from the chart) 15:54 15:53 Abdomen/GI: Positive for rectal pain, rectal bleeding, jr8 jr8 16:22 15:57 06/21/2018 15:57 Discharged to Home. Impression: Hemorrhoids. Condition is ss Stable. Forms are Medication Reconciliation Form, Thank You Letter, Antibiotic Education, Prescription Opioid Use. Follow up: Gena Yang; When: 1 week; Reason: Recheck today's complaints, Continuance of care, Re-evaluation by your physician. Problem is new. Symptoms have improved. jr8
--- NOTE | 2018-06-21 15:58 | ER ---
Nurse's Notes [facility] Name: Sidra Hodges Age: 43 yrs Sex: Female : 1975 Arrival Date: 06/21/2018 Time: 13:34 Bed 20 Private MD: Diagnosis: Hemorrhoids Presentation: 06/21 14:08 Presenting complaint: EMS states: rectal bleeding, hx hemorrhoids. Transition of care: sv patient was not received from another setting of care. Onset of symptoms was June 21, 2018. Care prior to arrival: None. 14:08 Method Of Arrival: EMS: [facility] sv 14:08 Acuity: CARMITA 5 sv 16:15 Risk Assessment: Do you want to hurt yourself or someone else? Patient reports no ss desire to harm self or others. Initial Sepsis Screen: Does the patient meet any 2 criteria? No. Patient's initial sepsis screen is negative. Does the patient have a suspected source of infection? No. Patient's initial sepsis screen is negative. Triage Assessment: 14:10 General: Appears in no apparent distress. comfortable, Behavior is cooperative, quiet. sv Neuro: Level of Consciousness is awake, alert, obeys commands, Oriented to person, place, time, situation, Moves all extremities. Full function Gait is steady. Respiratory: Respiratory effort is even, unlabored, Respiratory pattern is regular, symmetrical. GI: Reports rectal bleeding, hemorrhoids. Historical: - Allergies: 14:09 NKA; sv - PMHx: 14:09 Anxiety; Bipolar disorder; Depression; epilepsy; hemorrhoids; sv - PSHx: 14:09 None; sv - Immunization history:: Adult Immunizations up to date. - Social history:: Smoking status: Patient/guardian denies using tobacco. - Ebola Screening: : No symptoms or risks identified at this time. Screenin:14 Abuse screen: Denies threats or abuse. Denies injuries from another. Nutritional ss screening: No deficits noted. Tuberculosis screening: Never had TB. Fall Risk None identified. Assessment: 15:50 General: Appears in no apparent distress. comfortable, Behavior is calm, cooperative. ss General: agitated hemorrhoids x 2 days. . Pain: Complains of pain in anus Pain currently is 4 out of 10 on a pain scale. Quality of pain is described as tender. Neuro: Level of Consciousness is awake, alert, obeys commands. Respiratory: Airway is patent Respiratory effort is even, unlabored, Respiratory pattern is regular, symmetrical. GI: Patient currently denies diarrhea, nausea, vomiting. Derm: Skin is intact, is healthy with good turgor, Skin is pink, warm \T\ dry. normal. 16:00 Reassessment: Assisted Ricardo HERNANDEZ with rectal exam. Pt tolerated well. Internal ss and external hemorrhoids noted. No bleeding noted at this time. Musculoskeletal: Circulation, motion, and sensation intact. Range of motion: intact in all extremities. Vital Signs: 14:08 BP 140 / 103; Pulse 78; Resp 18; Temp 97; Pulse Ox 100% ; sv ED Course: 13:34 Patient arrived in ED. sb2 14:09 Triage completed. sv 14:09 Arm band placed on Patient placed in waiting room, Patient notified of wait time. sv 15:40 Franck Alejandra PA is PHCP. jr8 15:40 Vickie Lundberg MD is Attending Physician. jr8 16:11 Samantha Du, GERONIMO is Primary Nurse. ss 16:14 Patient has correct armband on for positive identification. Bed in low position. Call ss light in reach. 16:14 No provider procedures requiring assistance completed. Patient did not have IV access ss during this emergency room visit. Administered Medications: No medications were administered Outcome: 15:57 Discharge ordered by . jr8 16:14 Discharged to home ambulatory. ss 16:14 Condition: good 16:14 Discharge instructions given to patient, Instructed on discharge instructions, follow up and referral plans. medication usage, Demonstrated understanding of instructions, follow-up care, medications, Prescriptions given X 1. 16:22 Patient left the ED. ss Signatures: Samantha Pitts RN RN Samantha Du RN RN Franck Alejandra PA PA jrGabi Ponce sb2 Corrections: (The following items were deleted from the chart) 14:10 14:08 Temp 97F; sv sv
== END 2018-06-21 16:22 | disposition home or self-care (01) ==
LOC: ER 13:31
DX: K64.8 Other hemorrhoids (principal); K64.4 Residual hemorrhoidal skin tags
CPT/HCPCS: 99283

== ENCOUNTER 2018-07-02 15:34 | Emergency (ER) | payer SELFPAY ==
--- OUTSIDE RECORDS SUMMARY | 2018-07-02 15:35 | XMS REPORT ---
:1975 [facility] Address [address] [place] [address] [address] [place] [address] Care Team Providers Name Role Phone Unavailable Unavailable Unavailable Problems This patient has no known problems. Allergies, Adverse Reactions, Alerts This patient has no known allergies or adverse reactions. Medications This patient has no known medications.
--- NOTE | 2018-07-02 15:43 | ER ---
Nurse's Notes [facility] Name: Sidra Hodges Age: 43 yrs Sex: Female : 1975 Arrival Date: 07/02/2018 Time: 15:37 Bed 27 Private MD: Diagnosis: Anxiety disorder, unspecified;Cheek and lip biting Presentation: 07/02 15:37 Presenting complaint: Patient states: "my mom went back to [place] and I don't know when aa5 she is coming back so I've been having panic attacks today and I bit the inside of my mouth". No active bleeding noted. 15:37 Transition of care: patient was not received from another setting of care. Onset of aa5 symptoms was July 02, 2018. Risk Assessment: Do you want to hurt yourself or someone else? Patient reports no desire to harm self or others. Care prior to arrival: None. 15:37 Acuity: CARMITA 5 aa5 15:37 Method Of Arrival: EMS: [facility] aa 15:40 Initial Sepsis Screen: Does the patient meet any 2 criteria? No. Patient's initial aa5 sepsis screen is negative. Does the patient have a suspected source of infection? No. Patient's initial sepsis screen is negative. 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 - Social history:: Smoking status: Patient/guardian denies using tobacco. - Family history:: not pertinent. - Ebola Screening: : No symptoms or risks identified at this time. - Hospitalizations: : No recent hospitalization is reported. Screenin:38 Abuse screen: Denies threats or abuse. Denies injuries from another. Nutritional mg2 screening: No deficits noted. Tuberculosis screening: No symptoms or risk factors identified. Fall Risk None identified. Assessment: 16:01 General: Appears in no apparent distress. comfortable, Behavior is calm, cooperative. mg2 Pain: Complains of pain in left side of the buccal area Pain does not radiate. Quality of pain is described as aching, Pain began suddenly. Neuro: Level of Consciousness is awake, alert, obeys commands, Oriented to person, place, time, situation. Cardiovascular: Capillary refill < 3 seconds Patient's skin is warm and dry. Respiratory: Airway is patent Respiratory effort is even, unlabored, Respiratory pattern is regular, symmetrical. GI: No signs and/or symptoms were reported involving the gastrointestinal system. : No signs and/or symptoms were reported regarding the genitourinary system. EENT: 3 small bite hanks in the left buccal area. Derm: Skin is intact, is healthy with good turgor, Skin is pink, warm \\T\\ dry. normal. Musculoskeletal: Circulation, motion, and sensation intact. Capillary refill < 3 seconds. Injury Description: bite. 16:08 Reassessment: Patient is alert, oriented x 3, equal unlabored respirations, skin aa5 warm/dry/pink. Vital Signs: 15:40 BP 122 / 89; Pulse 87; Resp 16 S; Temp 98.0(TE); Pulse Ox 100% on R/A; Pain 0/10; aa5 ED Course: 15:37 Patient arrived in ED. aa5 15:37 Yong Banks MD is Attending Physician. rn 15:37 Kojo Sarmiento, GERONIMO is Primary Nurse. mg2 15:37 Arm band placed on. aa5 15:38 No provider procedures requiring assistance completed. Patient did not have IV access mg2 during this emergency room visit. 15:40 Triage completed. aa5 16:04 Patient has correct armband on for positive identification. mg2 Administered Medications: No medications were administered Outcome: 15:43 Discharge ordered by . rn 16:08 Discharged to home ambulatory. aa5 16:08 Condition: stable 16:08 Discharge instructions given to patient, Instructed on discharge instructions, follow up and referral plans. Demonstrated understanding of instructions, follow-up care, medications. 16:10 Patient left the ED. la1 Signatures: Yong Banks MD MD rn Calderon, Audri, RN RN aa5 Chava Ledbetter RN RN la1 Kojo Sarmiento RN RN mg2
--- NOTE | 2018-07-02 15:43 | EDPHYS ---
Physician Documentation [facility] Name: Sidra Hodges Age: 43 yrs Sex: Female : 1975 Arrival Date: 07/02/2018 Time: 15:37 Bed 27 Private MD: ED Physician Yong Banks HPI: 07/02 15:38 This 43 yrs old Female presents to ER via Unassigned with complaints of rn Anxiety. 15:38 The patient presents to the emergency department with anxiety. Onset: The rn symptoms/episode began/occurred at an unknown time. Severity of symptoms: At their worst the symptoms were moderate in the emergency department the symptoms have improved. The patient has experienced similar episodes in the past. The patient has not recently seen a physician. Reports having a lot of anxiety lately, reports mother went to [place] for unknown period of time, reports today having panic attacks, bit her inside of left mouth, and called 911 because of that, no bleeding, no current complaints other than anxiety. . 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 - Social history:: Smoking status: Patient/guardian denies using tobacco. - Family history:: not pertinent. - Ebola Screening: : No symptoms or risks identified at this time. - Hospitalizations: : No recent hospitalization is reported. ROS: 15:38 Constitutional: Negative for fever, chills, and weight loss, Eyes: Negative for injury, rn pain, redness, and discharge, ENT: + bit left inner mouth Neck: Negative for injury, pain, and swelling, Cardiovascular: Negative for chest pain, and edema, Respiratory: Negative for shortness of breath, cough, wheezing, and pleuritic chest pain, Abdomen/GI: Negative for abdominal pain, nausea, vomiting, diarrhea, and constipation, MS/Extremity: Negative for injury and deformity, Skin: Negative for injury, rash, and discoloration, Neuro: Negative for headache, weakness, numbness, tingling, and seizure. Exam: 15:38 Constitutional: This is a well developed, well nourished patient who is awake, alert, rn and in no acute distress. Walked to room without difficulty. Head/Face: Normocephalic, atraumatic. ENT: left inner buccal space with small punctate bite wound, no active bleeding Skin: Warm, dry with normal turgor. Normal color with no rashes, no lesions, and no evidence of cellulitis. Neuro: Awake and alert, GCS 15, oriented to person, place, time, and situation. Cranial nerves II-XII grossly intact. Motor strength 5/5 in all extremities. Sensory grossly intact. Cerebellar exam normal. Normal gait. Vital Signs: 15:40 BP 122 / 89; Pulse 87; Resp 16 S; Temp 98.0(TE); Pulse Ox 100% on R/A; Pain 0/10; aa5 MDM: 15:37 Patient medically screened. rn 15:38 Differential diagnosis: depression, anxiety. Data reviewed: vital signs, nurses notes, rn and as a result, I will discharge patient. Counseling: I had a detailed discussion with the patient and/or guardian regarding: the historical points, exam findings, and any diagnostic results supporting the discharge/admit diagnosis, the need for outpatient follow up, to return to the emergency department if symptoms worsen or persist or if there are any questions or concerns that arise at home. Special discussion: I discussed with the patient/guardian in detail that at this point there is no indication for admission to the hospital. It is understood, however, that if the symptoms persist or worsen the patient needs to return immediately for re-evaluation. Administered Medications: No medications were administered Disposition: 07/02/18 15:43 Discharged to Home. Impression: Anxiety disorder, unspecified, Cheek and lip biting. - Condition is Stable. - Discharge Instructions: Generalized Anxiety Disorder. - Medication Reconciliation Form, Thank You Letter, Antibiotic Education, Prescription Opioid Use form. - Follow up: Private Physician; When: As needed; Reason: Recheck today's complaints, Re-evaluation by your physician. - Problem is new. - Symptoms have improved. Signatures: Yong Banks MD MD rn Calderon, Audri, RN RN aa5 Chava Ledbetter RN RN la1 Kojo Sarmiento, RN RN mg2 Corrections: (The following items were deleted from the chart) 16:10 15:43 07/02/2018 15:43 Discharged to Home. Impression: Anxiety disorder, unspecified; la1 Cheek and lip biting. Condition is Stable. Forms are Medication Reconciliation Form, Thank You Letter, Antibiotic Education, Prescription Opioid Use. Follow up: Private Physician; When: As needed; Reason: Recheck today's complaints, Re-evaluation by your physician. Problem is new. Symptoms have improved. rn
== END 2018-07-02 16:10 | disposition home or self-care (01) ==
LOC: ER 15:34
DX: F41.9 Anxiety disorder, unspecified (principal); K13.1 Cheek and lip biting; F31.9 Bipolar disorder, unspecified; F32.9 Major depressive disorder, single episode, unspecified; G40.909 Epilepsy, unspecified, not intractable, without status epilepticus
CPT/HCPCS: 99283

== ENCOUNTER 2018-07-03 08:56 | Emergency (ER) | payer SELFPAY ==
--- OUTSIDE RECORDS SUMMARY | 2018-07-03 08:58 | XMS REPORT ---
:1975 [facility] Address [address] [place] [address] [address] [place] [address] Care Team Providers Name Role Phone Unavailable Unavailable Unavailable Problems This patient has no known problems. Allergies, Adverse Reactions, Alerts This patient has no known allergies or adverse reactions. Medications This patient has no known medications.
[2018-07-03 09:39] LABS: Absolute Lymphocytes (CBC) 1.5 K/uL (0.7-4.9); Absolute Monocytes 0.6 K/uL (0.1-1.3); Absolute Neutrophil 3.2 K/uL (1.8-8.0); Basophils % 0.7 % (0-1.3); Eosinophils % 3.3 % (0-4.4); Lymphocytes % 27.6 % (15.3-44.8); MPV 8.5 fL (7.6-11.3); Monocytes % 10.5 % (3.3-12.3); RBC Red Blood Cell Count 3.91 M/uL (3.86-4.86)
[2018-07-03 09:42] LABS: Sodium Level 139 mmol/L (136-145)
[2018-07-03 09:43] LABS: ALT/SGPT 31 U/L (12-78); AST/SGOT 30 U/L (15-37); Albumin 2.9 g/dL (3.4-5.0); Alkaline Phosphatase 127 U/L (45-117); BUN Blood Urea Nitrogen 15 mg/dL (7-18); Bicarbonate 30 mmol/L (21-32); Bilirubin Direct < 0.1 mg/dL (0-0.2); Bilirubin Total 0.1 mg/dL (0.2-1.0); Glucose Level 94 mg/dL (74-106); Lipase 129 U/L (73-393); Potassium 3.8 mmol/L (3.5-5.1); Protein, Total 7.6 g/dL (6.4-8.2)
[2018-07-03] MEDS ORDERED: NA CHLORIDE 0.9% 500 ML ONE (09:44)
[2018-07-03 10:29] LABS: Urine Blood NEGATIVE (NEG); Urine Glucose NEGATIVE (NEG); Urine Protein NEGATIVE (NEG); Urine Specific Gravity 1.025 (1.005-1.030); Urine pH 5.5 (5.0-7.0)
--- NOTE | 2018-07-03 10:38 | ER ---
Nurse's Notes [facility] Name: Sidra Hodges Age: 43 yrs Sex: Female : 1975 Arrival Date: 07/03/2018 Time: 08:57 Bed 18 Private MD: Diagnosis: Bipolar disorder;Abdominal tenderness;Epilepsy and recurrent seizures-depakote level theraputic Presentation: 07/03 08:58 Presenting complaint: Patient states: Vomiting that started today, was able to eat sg potatoes this morning but vomited, has had bleeding in her mouth that started today as well. No active bleeding noted at this time, reports tenderness to LUQ that radiates into her left shoulder EMS states: EMS confirms. Transition of care: patient was not received from another setting of care. Onset of symptoms was July 03, 2018. Risk Assessment: Do you want to hurt yourself or someone else? Patient reports no desire to harm self or others. Initial Sepsis Screen: Does the patient meet any 2 criteria? No. Patient's initial sepsis screen is negative. Does the patient have a suspected source of infection? No. Patient's initial sepsis screen is negative. Care prior to arrival: None. 08:58 Method Of Arrival: Ambulatory sg 08:58 Acuity: CARMITA 4 sg Triage Assessment: 09:05 General: Appears in no apparent distress. comfortable, obese, Behavior is flat. Pain: bp Noted to be NO APPARENT DISTRESS. 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 - Social history:: Smoking status: unknown. - Ebola Screening: : Patient negative for fever greater than or equal to 101.5 degrees Fahrenheit, and additional compatible Ebola Virus Disease symptoms Patient denies exposure to infectious person Patient denies travel to an Ebola-affected area in the 21 days before illness onset No symptoms or risks identified at this time. - Family history:: not pertinent. Screenin:06 Abuse screen: Denies threats or abuse. Denies injuries from another. Nutritional bp screening: No deficits noted. Tuberculosis screening: No symptoms or risk factors identified. Fall Risk None identified. Assessment: 09:07 Reassessment: SEE TRIAGE NOTE. bp 09:46 Reassessment: ALL CURRENT ORDERS COMPLETED, RESULTS PENDING. bp 11:01 Reassessment: PT D/C HOME AMBULATORY, DX WITH BIPOLAR DISORDER. bp Vital Signs: 09:00 BP 137 / 78; Pulse 87; Resp 17; Temp 97.7; Pulse Ox 100% on R/A; Weight 74.84 kg; Pain bp 6/10; 09:45 BP 124 / 87; Pulse 77; Resp 16; Pulse Ox 100% ; bp 11:01 BP 126 / 83; Pulse 72; Resp 16; Pulse Ox 100% ; bp Ingrid Coma Score: 09:05 Eye Response: spontaneous(4). Verbal Response: oriented(5). Motor Response: obeys ry commands(6). Total: 15. ED Course: 08:57 Patient arrived in ED. sg 09:00 Triage completed. sg 09:00 Arm band placed on. sg 09:01 Pascual Lundy MD is Attending Physician. [facility] 09:03 Jose Jama, GERONIMO is Primary Nurse. bp 09:06 Patient has correct armband on for positive identification. Bed in low position. Call bp light in reach. Side rails up X2. 09:27 Initial lab(s) drawn, by wa, sent to lab. Inserted saline lock: 22 gauge in right mh5 antecubital area, using aseptic technique. Blood collected. 09:28 Warm blanket given. Pulse ox on. NIBP on. 5 09:29 Basic Metabolic Panel Sent. 5 09:29 CBC with Diff Sent. 5 09:29 Creatinine for Radiology Sent. 5 09:29 Hepatic Function Sent. 5 09:29 Lipase Sent. 5 10:37 Shalom Carnes MD is Referral Physician. ry 11:01 No provider procedures requiring assistance completed. IV discontinued, intact, bp bleeding controlled, No redness/swelling at site. Pressure dressing applied. Administered Medications: 09:30 Drug: NS 0.9% 500 ml Route: IV; Rate: bolus; Site: right antecubital; bp 11:04 Follow up: IV Status: Completed infusion; IV Intake: 500ml bp Intake: 11:04 IV: 500ml; Total: 500ml. bp Outcome: 10:38 Discharge ordered by . ry 11:02 Discharged to home ambulatory. bp 11:02 Condition: stable 11:02 Discharge instructions given to patient, Instructed on discharge instructions, follow up and referral plans. medication usage, Demonstrated understanding of instructions, follow-up care, medications, Prescriptions given X 2. 11:18 Patient left the ED. bp Signatures: Blanco Davis RN RN Pascual Yung MD MD cha Martinez, [facility] Jose Jama RN RN bp Corrections: (The following items were deleted from the chart) 09:07 09:00 BP 137 / 78; Pulse 87bpm; Resp 17bpm; Pulse Ox 100% RA; Temp 97.7F; Pain 6/10; sg bp 11:03 11:02 Discharge instructions given to patient, Instructed on discharge instructions, bp follow up and referral plans. Demonstrated understanding of instructions, follow-up care, bp
--- NOTE | 2018-07-03 10:38 | EDPHYS ---
Physician Documentation [facility] Name: Sidra Hodges Age: 43 yrs Sex: Female : 1975 Arrival Date: 07/03/2018 Time: 08:57 Bed 18 Private MD: ED Physician Pascual Lundy HPI: 07/03 09:05 This 43 yrs old Female presents to ER via Ambulatory with complaints of Mouth ry Bleeding. 09:05 The patient or guardian reports a bite, to inside cheek. The complaints affect the ry mouth. Context of injury: The problem was sustained at home. Onset: The symptoms/episode began/occurred 2 day(s) ago. Associated signs and symptoms: The patient has no apparent associated signs or symptoms. The patient presents with abdominal pain. Onset: The symptoms/episode began/occurred 2 day(s) ago. Severity of symptoms: At their worst the symptoms were mild, in the emergency department the symptoms are unchanged. 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 - Social history:: Smoking status: unknown. - Ebola Screening: : Patient negative for fever greater than or equal to 101.5 degrees Fahrenheit, and additional compatible Ebola Virus Disease symptoms Patient denies exposure to infectious person Patient denies travel to an Ebola-affected area in the 21 days before illness onset No symptoms or risks identified at this time. - Family history:: not pertinent. ROS: 09:05 Constitutional: Negative for fever, chills, and weight loss, Eyes: Negative for injury, ry pain, redness, and discharge, Neck: Negative for injury, pain, and swelling, Cardiovascular: Negative for chest pain, palpitations, and edema, Respiratory: Negative for shortness of breath, cough, wheezing, and pleuritic chest pain, Abdomen/GI: Negative for abdominal pain, nausea, vomiting, diarrhea, and constipation, Back: Negative for injury and pain, : Negative for injury, bleeding, discharge, and swelling, MS/Extremity: Negative for injury and deformity, Skin: Negative for injury, rash, and discoloration, Neuro: Negative for headache, weakness, numbness, tingling, and seizure, Psych: Negative for depression, anxiety, suicide ideation, homicidal ideation, and hallucinations, Allergy/Immunology: Negative for hives, rash, and allergies, Endocrine: Negative for neck swelling, polydipsia, polyuria, polyphagia, and marked weight changes, Hematologic/Lymphatic: Negative for swollen nodes, abnormal bleeding, and unusual bruising. 09:05 ENT: Positive for small bite right inside cheek. Exam: 09:05 Constitutional: This is a well developed, well nourished patient who is awake, alert, ry and in no acute distress. Head/Face: Normocephalic, atraumatic. Eyes: Pupils equal round and reactive to light, extra-ocular motions intact. Lids and lashes normal. Conjunctiva and sclera are non-icteric and not injected. Cornea within normal limits. Periorbital areas with no swelling, redness, or edema. ENT: Nares patent. No nasal discharge, no septal abnormalities noted. Tympanic membranes are normal and external auditory canals are clear. Oropharynx with no redness, swelling, or masses, exudates, or evidence of obstruction, uvula midline. Mucous membranes moist. Neck: Trachea midline, no thyromegaly or masses palpated, and no cervical lymphadenopathy. Supple, full range of motion without nuchal rigidity, or vertebral point tenderness. No Meningismus. Chest/axilla: Normal chest wall appearance and motion. Nontender with no deformity. No lesions are appreciated. Cardiovascular: Regular rate and rhythm with a normal S1 and S2. No gallops, murmurs, or rubs. Normal PMI, no JVD. No pulse deficits. Respiratory: Lungs have equal breath sounds bilaterally, clear to auscultation and percussion. No rales, rhonchi or wheezes noted. No increased work of breathing, no retractions or nasal flaring. Abdomen/GI: Soft, non-tender, with normal bowel sounds. No distension or tympany. No guarding or rebound. No evidence of tenderness throughout. Back: No spinal tenderness. No costovertebral tenderness. Full range of motion. Skin: Warm, dry with normal turgor. Normal color with no rashes, no lesions, and no evidence of cellulitis. MS/ Extremity: Pulses equal, no cyanosis. Neurovascular intact. Full, normal range of motion. Neuro: Awake and alert, GCS 15, oriented to person, place, time, and situation. Cranial nerves II-XII grossly intact. Motor strength 5/5 in all extremities. Sensory grossly intact. Cerebellar exam normal. Normal gait. Psych: Awake, alert, with orientation to person, place and time. Behavior, mood, and affect are within normal limits. Vital Signs: 09:00 BP 137 / 78; Pulse 87; Resp 17; Temp 97.7; Pulse Ox 100% on R/A; Weight 74.84 kg; Pain bp 6/10; 09:45 BP 124 / 87; Pulse 77; Resp 16; Pulse Ox 100% ; bp 11:01 BP 126 / 83; Pulse 72; Resp 16; Pulse Ox 100% ; bp [place] Coma Score: 09:05 Eye Response: spontaneous(4). Verbal Response: oriented(5). Motor Response: obeys ry commands(6). Total: 15. MDM: 09:02 Patient medically screened. [facility] 09:08 Data reviewed: vital signs, nurses notes, lab test result(s). 07/03 09:03 Order name: Basic Metabolic Panel; Complete Time: 10:07 07/03 09:03 Order name: CBC with Diff; Complete Time: 10:07 07/03 09:03 Order name: Creatinine for Radiology; Complete Time: 10:07 07/03 09:03 Order name: Hepatic Function; Complete Time: 10:07 07/03 09:03 Order name: Lipase; Complete Time: 10:07 07/03 09:40 Order name: Depakote; Complete Time: 10:37 07/03 09:03 Order name: IV Saline Lock; Complete Time: 09:29 07/03 09:03 Order name: Labs collected and sent; Complete Time: 09:29 07/03 09:03 Order name: Urine Dipstick-Ancillary (obtain specimen); Complete Time: 09:49 07/03 09:03 Order name: Urine Test (obtain specimen); Complete Time: 09:49 07/03 09:52 Order name: Urine Dipstick--Ancillary (enter results); Complete Time: 10:37 em1 07/03 09:52 Order name: Urine --Ancillary (enter results); Complete Time: 10:37 em1 Administered Medications: 09:30 Drug: NS 0.9% 500 ml Route: IV; Rate: bolus; Site: right antecubital; bp 11:04 Follow up: IV Status: Completed infusion; IV Intake: 500ml bp Disposition: 07/03/18 10:38 Discharged to Home. Impression: Bipolar disorder, Abdominal tenderness, Epilepsy and recurrent seizures - depakote level theraputic. - Condition is Stable. - Discharge Instructions: Abdominal Pain, Adult, Mouth Laceration, Bipolar Disorder, Mouth Laceration, [id number], Abdominal Pain, Adult, [id number]. - Prescriptions for Bentyl 20 mg Oral Tablet - take 1 tablet by ORAL route every 6 hours As needed; 20 tablet. Pepcid 20 mg Oral Tablet - take 1 tablet by ORAL route every 12 hours for 10 days; 20 tablet. - Medication Reconciliation Form, Thank You Letter, Antibiotic Education, Prescription Opioid Use form. - Follow up: Private Physician; When: 2 - 3 days; Reason: Recheck today's complaints, Continuance of care, Re-evaluation by your physician. Follow up: Shalom Carnes; When: 2 - 3 days; Reason: Recheck today's complaints, Re-evaluation by your physician. - Problem is new. - Symptoms have improved. Signatures: Dispatcher [employer] EDTN Pascual Lundy MD MD cha Peltier, Brian, RN RN bp Corrections: (The following items were deleted from the chart) 11:18 10:38 07/03/2018 10:38 Discharged to Home. Impression: Bipolar disorder; Abdominal bp tenderness; Epilepsy and recurrent seizures - depakote level theraputic. Condition is Stable. Discharge Instructions: Abdominal Pain, Adult, Mouth Laceration, Bipolar Disorder, Mouth Laceration, [id number], Abdominal Pain, Adult, Weix-uv-Pugl. Prescriptions for Bentyl 20 mg Oral Tablet - take 1 tablet by ORAL route every 6 hours As needed; 20 tablet, Pepcid 20 mg Oral Tablet - take 1 tablet by ORAL route every 12 hours for 10 days; 20 tablet. and Forms are Medication Reconciliation Form, Thank You Letter, Antibiotic Education, Prescription Opioid Use. Follow up: Private Physician; When: 2 - 3 days; Reason: Recheck today's complaints, Continuance of care, Re-evaluation by your physician. Follow up: Shalom Carnes; When: 2 - 3 days; Reason: Recheck today's complaints, Re-evaluation by your physician. Problem is new. Symptoms have improved. ry
== END 2018-07-03 11:18 | disposition home or self-care (01) ==
LOC: ER 08:56
DX: S09.8XXA Other specified injuries of head, initial encounter (principal); R10.819 Abdominal tenderness, unspecified site; G40.802 Other epilepsy, not intractable, without status epilepticus; F31.9 Bipolar disorder, unspecified; F32.9 Major depressive disorder, single episode, unspecified
CPT/HCPCS: 36415; 80048; 80076; 80164; 81003; 81025; 83690; 85025; 96360; 96361; 99284

== ENCOUNTER 2018-07-28 09:05 | Emergency (ER) | payer SELFPAY ==
--- OUTSIDE RECORDS SUMMARY | 2018-07-28 09:07 | XMS REPORT ---
:1975 [facility] Address [address] [place] [address] [address] [place] [address] Care Team Providers Name Role Phone Unavailable Unavailable Unavailable Problems This patient has no known problems. Allergies, Adverse Reactions, Alerts This patient has no known allergies or adverse reactions. Medications This patient has no known medications.
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
== END 2018-07-28 12:10 | disposition home or self-care (01) ==
LOC: ER 09:05
DX: S20.219A Contusion of unspecified front wall of thorax, initial encounter (principal); X58.XXXA Exposure to other specified factors, initial encounter
CPT/HCPCS: 71046; 99282

== ENCOUNTER 2018-07-28 23:49 | Emergency (ER) | payer SELFPAY ==
--- OUTSIDE RECORDS SUMMARY | 2018-07-28 23:51 | XMS REPORT ---
:1975 [facility] Address [address] [place] [address] [address] [place] [address] Care Team Providers Name Role Phone Unavailable Unavailable Unavailable Problems This patient has no known problems. Allergies, Adverse Reactions, Alerts This patient has no known allergies or adverse reactions. Medications This patient has no known medications.
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
--- NOTE | 2018-07-29 08:32 | RAD REPORT ---
EXAM DESCRIPTION: RAD - Shoulder Left 2 View - 07/29/2018 1:31 am CLINICAL HISTORY: Left shoulder pain FINDINGS: No fracture or dislocation is seen. Calcifications superior to the humeral head probably indicate calcific tendinitis
--- NOTE | 2018-07-29 08:33 | RAD REPORT ---
EXAM DESCRIPTION: Kristy Cleveland (2 Views)07/29/2018 1:31 am CLINICAL HISTORY: Chest pain COMPARISON: July 28, 2018 FINDINGS: The lungs appear clear of acute infiltrate. The heart is normal size IMPRESSION: No acute abnormalities displayed
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
== END 2018-07-29 02:37 | disposition home or self-care (01) ==
LOC: ER 23:49
DX: S43.492A Other sprain of left shoulder joint, initial encounter (principal); S13.4XXA Sprain of ligaments of cervical spine, initial encounter; Y04.2XXA Assault by strike against or bumped into by another person, initial encounter; G40.909 Epilepsy, unspecified, not intractable, without status epilepticus; F31.9 Bipolar disorder, unspecified; F41.9 Anxiety disorder, unspecified; Z79.899 Other long term (current) drug therapy
CPT/HCPCS: 71046; 72125; 99283

== ENCOUNTER 2018-09-13 01:22 | Emergency (ER) | payer SELFPAY ==
--- OUTSIDE RECORDS SUMMARY | 2018-09-13 01:24 | XMS REPORT ---
:1975 [facility] Address [address] [place] [address] [address] [place] [address] Care Team Providers Name Role Phone Unavailable Unavailable Unavailable Problems This patient has no known problems. Allergies, Adverse Reactions, Alerts This patient has no known allergies or adverse reactions. Medications This patient has no known medications.
--- NOTE | 2018-09-13 01:39 | ER ---
Nurse's Notes [facility] Name: Sidra Hodges Age: 43 yrs Sex: Female : 1975 Arrival Date: 09/13/2018 Time: 01:26 Bed 17 Private MD: Diagnosis: Presentation: 09/13 01:38 Note pt left before triage. bb ED Course: 01:26 Patient arrived in ED. bb 01:31 [facility] 01:31 Wiliam Adkins MD is Attending Physician. jr8 Administered Medications: No medications were administered Outcome: 01:39 Patient left the ED. bb Signatures: Conchita Marcelo RN RN Franck Lau PA PA jr8
== END 2018-09-13 01:39 | disposition left against medical advice (07) ==
LOC: ER 01:22
DX: Z53.21 Procedure and treatment not carried out due to patient leaving prior to being seen by health care provider (principal)

== ENCOUNTER 2018-09-13 02:21 | Emergency (ER) | payer SELFPAY ==
--- OUTSIDE RECORDS SUMMARY | 2018-09-13 02:23 | XMS REPORT ---
:1975 [facility] Address [address] [place] [address] [address] [place] [address] Care Team Providers Name Role Phone Unavailable Unavailable Unavailable Problems This patient has no known problems. Allergies, Adverse Reactions, Alerts This patient has no known allergies or adverse reactions. Medications This patient has no known medications.
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
--- NOTE | 2018-09-13 09:17 | RAD REPORT ---
EXAM DESCRIPTION: RAD - Elbow Left 2 View - 09/13/2018 4:05 am CLINICAL HISTORY: Left elbow pain status fall. FINDINGS: No fracture or dislocation is seen. Limited two-view series obtained
--- NOTE | 2018-09-13 09:19 | RAD REPORT ---
EXAM DESCRIPTION: RAD - Shoulder Left 2 View - 09/13/2018 4:05 am CLINICAL HISTORY: Left shoulder pain status post fall FINDINGS: No fracture or dislocation is seen. The bones are osteoporotic Calcific densities above the humeral head likely indicating calcific tendinitis
== END 2018-09-13 04:25 | disposition home or self-care (01) ==
LOC: ER 02:21
DX: S40.022A Contusion of left upper arm, initial encounter (principal); S50.12XA Contusion of left forearm, initial encounter; W19.XXXA Unspecified fall, initial encounter; Y93.9 Activity, unspecified; Y92.009 Unspecified place in unspecified non-institutional (private) residence as the place of occurrence of the external cause; F41.9 Anxiety disorder, unspecified; F32.9 Major depressive disorder, single episode, unspecified; F31.9 Bipolar disorder, unspecified; G40.909 Epilepsy, unspecified, not intractable, without status epilepticus
CPT/HCPCS: 99283

== ENCOUNTER 2018-09-23 20:20 | Emergency (ER) | payer SELFPAY ==
--- OUTSIDE RECORDS SUMMARY | 2018-09-23 20:22 | XMS REPORT ---
:1975 [facility] Address [address] [place] [address] [address] [place] [address] Care Team Providers Name Role Phone Unavailable Unavailable Unavailable Problems This patient has no known problems. Allergies, Adverse Reactions, Alerts This patient has no known allergies or adverse reactions. Medications This patient has no known medications.
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
--- NOTE | 2018-09-23 21:30 | RAD REPORT ---
EXAM DESCRIPTION: RAD - Humerus Left - 09/23/2018 9:22 pm CLINICAL HISTORY: PAIN COMPARISON: Humerus Left dated 05/31/2016 FINDINGS: Calcific tendinitis is seen. No acute fracture or dislocation evident.
== END 2018-09-23 21:38 | disposition home or self-care (01) ==
LOC: ER 20:20
DX: S00.83XA Contusion of other part of head, initial encounter (principal); S40.022A Contusion of left upper arm, initial encounter; Y09 Assault by unspecified means; Y93.9 Activity, unspecified; Y92.009 Unspecified place in unspecified non-institutional (private) residence as the place of occurrence of the external cause; F41.9 Anxiety disorder, unspecified; F32.9 Major depressive disorder, single episode, unspecified; G40.909 Epilepsy, unspecified, not intractable, without status epilepticus; F31.9 Bipolar disorder, unspecified; F90.9 Attention-deficit hyperactivity disorder, unspecified type
CPT/HCPCS: 99283

== ENCOUNTER 2018-09-29 15:00 | Emergency (ER) | payer SELFPAY ==
--- OUTSIDE RECORDS SUMMARY | 2018-09-29 15:49 | XMS REPORT ---
:1975 [facility] Address [address] [place] [address] [address] [place] [address] Care Team Providers Name Role Phone Unavailable Unavailable Unavailable Problems This patient has no known problems. Allergies, Adverse Reactions, Alerts This patient has no known allergies or adverse reactions. Medications This patient has no known medications.
--- NOTE | 2018-09-29 16:21 | RAD REPORT ---
EXAM DESCRIPTION: RAD - Knee Left 3 View - 09/29/2018 4:13 pm CLINICAL HISTORY: PAIN COMPARISON: Knee Left 3 View dated 07/30/2017; Knee Left 3 View dated 07/28/2017 FINDINGS: Mild medial compartment space narrowing is present. No fracture, dislocation or significan t joint effusion seen.
--- NOTE | 2018-09-29 16:25 | RAD REPORT ---
EXAM DESCRIPTION: RAD - Hand Left 3 View - 09/29/2018 4:13 pm CLINICAL HISTORY: PAIN COMPARISON: No comparisons FINDINGS: Osteopenia is seen. Soft tissue swelling affects the fingers. No acute fracture demonstrat ed. A dislocation is not evident.
--- NOTE | 2018-09-29 16:28 | RAD REPORT ---
EXAM DESCRIPTION: RAD - Shoulder Left 2 View - 09/29/2018 4:13 pm CLINICAL HISTORY: PAIN COMPARISON: Shoulder Left 2 View dated 09/13/2018 FINDINGS: Calcifications of the distal supraspinatus tendon are present, most compatible with calcif ic tendinitis. No acute fracture or dislocation seen. IMPRESSION: Calcific tendinitis seen.
[2018-09-29] MEDS ORDERED: ACETAMINOPHEN 500 MG TAB ONE (16:29)
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
== END 2018-09-29 17:26 | disposition home or self-care (01) ==
LOC: ER 15:00
DX: S80.212A Abrasion, left knee, initial encounter (principal); S60.222A Contusion of left hand, initial encounter; S40.012A Contusion of left shoulder, initial encounter; W10.8XXA Fall (on) (from) other stairs and steps, initial encounter; Y93.89 Activity, other specified; Y92.89 Other specified places as the place of occurrence of the external cause; F31.9 Bipolar disorder, unspecified; F90.9 Attention-deficit hyperactivity disorder, unspecified type; G40.909 Epilepsy, unspecified, not intractable, without status epilepticus
CPT/HCPCS: 99284

== ENCOUNTER 2018-10-02 09:59 | Emergency (ER) | payer SELFPAY ==
--- OUTSIDE RECORDS SUMMARY | 2018-10-02 10:04 | XMS REPORT ---
:1975 [facility] Address [address] [place] [address] [address] [place] [address] Care Team Providers Name Role Phone Unavailable Unavailable Unavailable Problems This patient has no known problems. Allergies, Adverse Reactions, Alerts This patient has no known allergies or adverse reactions. Medications This patient has no known medications.
--- NOTE | 2018-10-02 11:55 | RAD REPORT ---
EXAM DESCRIPTION: RAD - Lumbar Spine 3 Views - 10/02/2018 11:50 am CLINICAL HISTORY: Back pain FINDINGS: The alignment of the lumbar spine is satisfactory. No fracture or dislocation is seen. Mild spondylosis involves the lumbar spine. The bones are osteoporotic
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
== END 2018-10-02 12:20 | disposition home or self-care (01) ==
LOC: ER 09:59
DX: S30.0XXA Contusion of lower back and pelvis, initial encounter (principal); S80.02XA Contusion of left knee, initial encounter; S60.222A Contusion of left hand, initial encounter; W10.8XXA Fall (on) (from) other stairs and steps, initial encounter; Y92.811 Bus as the place of occurrence of the external cause; F90.9 Attention-deficit hyperactivity disorder, unspecified type; F41.9 Anxiety disorder, unspecified; F31.9 Bipolar disorder, unspecified; F32.9 Major depressive disorder, single episode, unspecified
CPT/HCPCS: 72100; 99283

== ENCOUNTER 2018-10-08 10:55 | Emergency (ER) | payer SELFPAY ==
--- OUTSIDE RECORDS SUMMARY | 2018-10-08 10:57 | XMS REPORT ---
:1975 [facility] Address [address] [place] [address] [address] [place] [address] Care Team Providers Name Role Phone Unavailable Unavailable Unavailable Problems This patient has no known problems. Allergies, Adverse Reactions, Alerts This patient has no known allergies or adverse reactions. Medications This patient has no known medications.
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
--- NOTE | 2018-10-08 11:27 | ER ---
Nurse's Notes [facility] Name: Sidra Hodges Age: 43 yrs Sex: Female : 1975 Arrival Date: 10/08/2018 Time: 10:56 Bed 15 Private MD: Diagnosis: Contusion of left hand Presentation: 10/08 10:56 Presenting complaint: Patient states: hand pain and swelling that began 2 weeks ago. ss Transition of care: patient was not received from another setting of care. Onset of symptoms. Initial Sepsis Screen: Does the patient meet any 2 criteria? No. Patient's initial sepsis screen is negative. Does the patient have a suspected source of infection? No. Patient's initial sepsis screen is negative. Care prior to arrival: None. 10:56 Method Of Arrival: EMS: [facility] 10:56 Acuity: CARMITA 4 Triage Assessment: 11:08 General: Appears in no apparent distress. comfortable, Behavior is flat, NO OBJECTIVE bp FINDINGS. Pain: Complains of pain in right hand. EENT: No deficits noted. Neuro: AT BASELINE. Cardiovascular: No deficits noted. Respiratory: Airway is patent Respiratory effort is even, unlabored, Respiratory pattern is regular, symmetrical. GI: No signs and/or symptoms were reported involving the gastrointestinal system. : No signs and/or symptoms were reported regarding the genitourinary system. Derm: No deficits noted. Musculoskeletal: Reports pain in right hand. 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 - Social history:: Smoking status: Patient/guardian denies using tobacco. - Ebola Screening: : Patient denies exposure to infectious person Patient denies travel to an Ebola-affected area in the 21 days before illness onset. - Family history:: not pertinent. - Hospitalizations: : No recent hospitalization is reported. Screenin:10 Abuse screen: Denies threats or abuse. Denies injuries from another. Nutritional bp screening: No deficits noted. Tuberculosis screening: No symptoms or risk factors identified. Fall Risk None identified. Assessment: 11:10 General: SEE TRIAGE NOTE. bp Vital Signs: 11:09 bp 11:09 PT UNCOOPERATIVE WITH VITALS bp ED Course: 10:56 Patient arrived in ED. ss 10:56 Yong Banks MD is Attending Physician. rn 10:57 Triage completed. ss 10:58 Arm band placed on right wrist. ss 11:02 Nyla Luz, RN is Primary Nurse. aj1 11:10 Patient has correct armband on for positive identification. Bed in low position. Call bp light in reach. 11:17 X-ray completed. Portable x-ray completed in exam room. Patient tolerated procedure jb2 well. 11:19 XRAY Hand LEFT 3 View In Process Unspecified. EDMS 12:15 No provider procedures requiring assistance completed. Patient did not have IV access ss during this emergency room visit. Farshad wrap to left wrist. Administered Medications: No medications were administered Outcome: 11:26 Discharge ordered by . rn 12:15 Discharged to home ambulatory. ss 12:15 Condition: good 12:15 Discharge instructions given to patient, Instructed on discharge instructions, follow up and referral plans. Demonstrated understanding of instructions, follow-up care. 12:16 Patient left the ED. ss Signatures: Dispatcher [employer] EDMS Nyla Luz, RN RN aj1 Eunice Daniel jb2 Yong Banks MD MD rn Smirch, Shelby, RN RN ss Peltier, Brian, RN RN bp
--- NOTE | 2018-10-08 11:32 | RAD REPORT ---
EXAM DESCRIPTION: RAD -Hand Left 3 View - 10/08/2018 11:18 am CLINICAL HISTORY: Left hand pain FINDINGS: No fracture or dislocation is seen. No bone or joint abnormality seen
== END 2018-10-08 12:16 | disposition home or self-care (01) ==
LOC: ER 10:55
DX: S60.222A Contusion of left hand, initial encounter (principal); W17.89XA Other fall from one level to another, initial encounter; Y92.811 Bus as the place of occurrence of the external cause; F90.9 Attention-deficit hyperactivity disorder, unspecified type; F41.9 Anxiety disorder, unspecified; F31.9 Bipolar disorder, unspecified; F32.9 Major depressive disorder, single episode, unspecified; G40.909 Epilepsy, unspecified, not intractable, without status epilepticus
CPT/HCPCS: 99283

== ENCOUNTER 2018-10-12 20:30 | Emergency (ER) | payer SELFPAY ==
--- OUTSIDE RECORDS SUMMARY | 2018-10-12 20:33 | XMS REPORT ---
:1975 Author Organization [facility] Address [address] [place] [address] [address] [place] [address] Care Team Providers Name Role Phone Unavailable Unavailable Unavailable Problems This patient has no known problems. Allergies, Adverse Reactions, Alerts This patient has no known allergies or adverse reactions. Medications This patient has no known medications.
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
== END 2018-10-12 21:10 | disposition left against medical advice (07) ==
LOC: ER 20:30
DX: M25.562 Pain in left knee (principal); M54.9 Dorsalgia, unspecified; M79.643 Pain in unspecified hand; Z53.21 Procedure and treatment not carried out due to patient leaving prior to being seen by health care provider
CPT/HCPCS: 99281

== ENCOUNTER 2018-10-26 20:52 | Emergency (ER) | payer SELFPAY ==
--- OUTSIDE RECORDS SUMMARY | 2018-10-26 20:54 | XMS REPORT ---
:1975 Author [facility] Address [address] [place] [address] [address] [place] [address] Care Team Providers Name Role Phone Unavailable Unavailable Unavailable Problems This patient has no known problems. Allergies, Adverse Reactions, Alerts This patient has no known allergies or adverse reactions. Medications This patient has no known medications.
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
--- NOTE | 2018-10-27 08:13 | RAD REPORT ---
EXAM DESCRIPTION: RAD - Shoulder Left 2 View - 10/26/2018 9:15 pm CLINICAL HISTORY: PAIN COMPARISON: Shoulder Left 2 View dated 09/29/2018 FINDINGS: Calcification in the distal supraspinatus tendon is compatible with calcific tendinitis. N o acute fracture or dislocation seen.
--- NOTE | 2018-10-27 08:15 | RAD REPORT ---
EXAM DESCRIPTION: RAD - Knee Left 3 View - 10/26/2018 9:15 pm CLINICAL HISTORY: PAIN COMPARISON: Knee Left 3 View dated 09/29/2018; Knee Left 3 View dated 07/30/2017 FINDINGS: Soft tissue swelling is seen anterior to the patella. No fracture or dislocation seen. No joint effusion present
== END 2018-10-26 22:48 | disposition home or self-care (01) ==
LOC: ER 20:52
DX: S80.02XA Contusion of left knee, initial encounter (principal); W18.39XA Other fall on same level, initial encounter; Y93.89 Activity, other specified; Y92.9 Unspecified place or not applicable; M25.512 Pain in left shoulder; B35.3 Tinea pedis; F41.8 Other specified anxiety disorders
CPT/HCPCS: 99284

== ENCOUNTER 2018-12-08 10:36 | Emergency (ER) | payer SELFPAY ==
--- OUTSIDE RECORDS SUMMARY | 2018-12-08 10:48 | XMS REPORT ---
:1975 [facility] [address] [place] [address] [address] [place] [address] Care Team Providers Name Role Phone Unavailable Unavailable Unavailable Problems This patient has no known problems. Allergies, Adverse Reactions, Alerts This patient has no known allergies or adverse reactions. Medications This patient has no known medications.
--- NOTE | 2018-12-08 11:40 | RAD REPORT ---
EXAM DESCRIPTION: RAD - Chest Single View - 12/08/2018 11:30 am CLINICAL HISTORY: CHEST PAIN Chest pain. COMPARISON: <Comparisons> FINDINGS: Portable technique limits examination quality. The lungs are grossly clear. The heart is normal in size. No displaced fractures. IMPRESSION: No acute intrathoracic process suspected.
[2018-12-08 12:07] LABS: Absolute Lymphocytes (CBC) 1.7 K/uL (0.7-4.9); Basophils % 0.7 % (0-1.3); Eosinophils % 2.7 % (0-4.4); Hematocrit 31.2 % (36.0-45.0); Lymphocytes % 35.3 % (15.3-44.8); MPV 8.8 fL (7.6-11.3); Monocytes % 11.4 % (3.3-12.3); RBC Red Blood Cell Count 3.76 M/uL (3.86-4.86)
[2018-12-08 12:11] LABS: BUN Blood Urea Nitrogen 16 mg/dL (7-18); Bicarbonate 29 mmol/L (21-32); Glucose Level 93 mg/dL (74-106); Lipase 130 U/L (73-393); Sodium Level 140 mmol/L (136-145); Troponin (Emerg Dept Use Only) < 0.02 ng/mL (0.0-0.045)
--- NOTE | 2018-12-08 12:37 | EKG ---
Test Date: 2018-12-08 Test Time: 10:51:56 Mine Engineering Superintendent: HECTOR-Flori MEASUREMENT RESULTS: Intervals: Rate: 70 WA: 152 QRSD: 84 QT: 358 QTc: 386 [place]: P: 30 WA: 152 QRS: 56 T: 63 INTERPRETIVE STATEMENTS: Normal sinus rhythm Nonspecific T wave abnormality Abnormal ECG Compared to ECG 05/15/2018 22:10:40 No significant changes Electronically Signed On 12-08-18 12:36:18 CDT by Flo Purvis
--- NOTE | 2018-12-08 12:46 | EDPHYS ---
Physician Documentation [facility] Name: Sidra Hodges Age: 43 yrs Sex: Female : 1975 Arrival Date: 12/08/2018 Time: 10:40 Bed 20 Private MD: ED Physician Yong Banks HPI: 12/08 12:28 This 43 yrs old Female presents to ER via Ambulatory with complaints of Chest rn Pain. 12:30 The patient or guardian reports chest pain that is located primarily in the substernal rn area. Onset: yesterday. The pain does not radiate. Associated signs and symptoms: Pertinent positives: palpitations, Pertinent negatives: abdominal pain, cough, diaphoresis, lower extremity pain, lower extremity swelling, near syncope, syncope, vomiting. The chest pain is described as sharp. Modifying factors: The symptoms are alleviated by nothing. the symptoms are aggravated by nothing. Severity of pain: At its worst the pain was mild in the emergency department the pain is unchanged. The patient has experienced similar episodes in the past. Reports since last night having "attacks", she has had these before, reports feels heart racing and begins to cry during episodes, lasts for an hour or so, denies trauma, no fever/vomiting/sob/cough/abd pain. Has been calling for ambulance but states they will not bring her, so found her way here today. . 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 - Social history:: Smoking status: Patient/guardian denies using tobacco. - Family history:: not pertinent. - Ebola Screening: : Patient denies exposure to infectious person Patient denies travel to an Ebola-affected area in the 21 days before illness onset. - Hospitalizations: : No recent hospitalization is reported. ROS: 12:33 Constitutional: Negative for fever, chills, and weight loss, Eyes: Negative for injury, rn pain, redness, and discharge, Neck: Negative for injury, pain, and swelling, Cardiovascular: Negative for edema Respiratory: Negative for shortness of breath, cough, wheezing, and pleuritic chest pain, Abdomen/GI: Negative for abdominal pain, nausea, vomiting, diarrhea, and constipation, MS/Extremity: Negative for injury and deformity, Skin: Negative for injury, rash, and discoloration, Neuro: Negative for headache, weakness, numbness, tingling, and seizure. Exam: 12:33 Constitutional: This is a well developed, well nourished patient who is awake, alert, rn and in no acute distress. Walked to room without difficulty or distress. Head/Face: Normocephalic, atraumatic. ENT: MMM Neck: Trachea midline, no thyromegaly or masses palpated, and no cervical lymphadenopathy. Supple, full range of motion without nuchal rigidity, or vertebral point tenderness. No Meningismus. Cardiovascular: Regular rate and rhythm. No gallops, murmurs, or rubs. No JVD. No pulse deficits. Respiratory: Lungs have equal breath sounds bilaterally, clear to auscultation. No increased work of breathing, no retractions or nasal flaring. Abdomen/GI: soft, non-tender MS/ Extremity: Pulses equal, no cyanosis. Neurovascular intact. Full, normal range of motion. Equal circumference. Neuro: Awake and alert, GCS 15, oriented to person, place, time, and situation. Cranial nerves II-XII grossly intact. Motor strength 5/5 in all extremities. Sensory grossly intact. Cerebellar exam normal. Normal gait. 12:40 ECG was reviewed by the Attending Physician. rn Vital Signs: 10:52 BP 101 / 84; Pulse 80; Resp 16; Temp 97; Pulse Ox 98% ; Weight 77.11 kg; bp 12:08 BP 118 / 68; Pulse 59; Resp 18; Pulse Ox 99% on R/A; aj1 13:15 BP 128 / 70; Pulse 62; Resp 18; Pulse Ox 99% on R/A; aj1 MDM: 10:48 Patient medically screened. rn 12:41 Differential diagnosis: anxiety, coronary artery disease chest wall pain, gastritis, rn gastroesophageal reflux disease (GERD), pleurisy. Data reviewed: vital signs, nurses notes, lab test result(s), EKG, radiologic studies, plain films. Counseling: I had a detailed discussion with the patient and/or guardian regarding: the historical points, exam findings, and any diagnostic results supporting the discharge/admit diagnosis, lab results, radiology results, the need for outpatient follow up, to return to the emergency department if symptoms worsen or persist or if there are any questions or concerns that arise at home. Special discussion: Based on the patient's history, exam, and Dx evaluation, there is no indication for emergent intervention or inpatient Tx. It is understood by the patient/guardian that if the Sx's persist or worsen they need to return immediately for re-evaluation. I discussed with the patient/guardian in detail that at this point there is no indication for admission to the hospital. It is understood, however, that if the symptoms persist or worsen the patient needs to return immediately for re-evaluation. 12/08 11:11 Order name: CBC with Diff rn 12/08 11:11 Order name: Basic Metabolic Panel; Complete Time: 12:32 rn 12/08 11:11 Order name: Lipase; Complete Time: 12:32 rn 12/08 11:11 Order name: Troponin (emerg Dept Use Only); Complete Time: 12:32 rn 12/08 11:11 Order name: XRAY Chest (1 view); Complete Time: 12:32 rn 12/08 12:14 Order name: CBC Smear Scan EDMS 12/08 11:11 Order name: IV Start; Complete Time: 11:43 rn 12/08 11:11 Order name: EKG; Complete Time: 11:13 rn 12/08 11:11 Order name: EKG - Nurse/Tech; Complete Time: 11:29 rn EC:40 Rate is 70 beats/min. Rhythm is regular. QRS [place] is Normal. AL interval is normal. QRS rn interval is normal. QT interval is normal. No Q waves. T waves are Normal. No ST changes noted. Clinical impression: Normal ECG and No evidence of ischemia. Interpreted by me. Reviewed by me. Administered Medications: No medications were administered Disposition: 12/08/18 12:43 Discharged to Home. Impression: Chest pain, unspecified, Anxiety disorder, unspecified. - Condition is Stable. - Discharge Instructions: Panic Attacks, Nonspecific Chest Pain, Generalized Anxiety Disorder. - Medication Reconciliation Form, Thank You Letter, Antibiotic Education, Prescription Opioid Use form. - Follow up: Private Physician; When: As needed; Reason: Recheck today's complaints, Re-evaluation by your physician. - Problem is an acute exacerbation. - Symptoms have improved. Signatures: Dispatcher [employer] Nyla Beltran RN RN aj1 Yong Banks MD MD rn Smirch, Shelby, RN RN ss Corrections: (The following items were deleted from the chart) 13:43 12:43 12/08/2018 12:43 Discharged to Home. Impression: Chest pain, unspecified; Anxiety ss disorder, unspecified. Condition is Stable. Forms are Medication Reconciliation Form, Thank You Letter, Antibiotic Education, Prescription Opioid Use. Follow up: Private Physician; When: As needed; Reason: Recheck today's complaints, Re-evaluation by your physician. Problem is an acute exacerbation. Symptoms have improved. rn
--- NOTE | 2018-12-08 12:46 | ER ---
Nurse's Notes [facility] Name: Sidra Hodges Age: 43 yrs Sex: Female : 1975 Arrival Date: 12/08/2018 Time: 10:40 Bed 20 Private MD: Diagnosis: Chest pain, unspecified;Anxiety disorder, unspecified Presentation: 12/08 10:51 Presenting complaint: Patient states: PT C/O "BACK PAIN, CHEST PAIN, AND I HAD TO CALL bp A TAXI BECAUSE THE AMBULANCE WON'T PICK ME UP ANY MORE". Transition of care: patient was not received from another setting of care. Onset of symptoms is unknown. Risk Assessment: Do you want to hurt yourself or someone else? Patient reports no desire to harm self or others. Initial Sepsis Screen: Does the patient meet any 2 criteria? No. Patient's initial sepsis screen is negative. Does the patient have a suspected source of infection? No. Patient's initial sepsis screen is negative. Care prior to arrival: None. 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 - Social history:: Smoking status: Patient/guardian denies using tobacco. - Family history:: not pertinent. - Ebola Screening: : Patient denies exposure to infectious person Patient denies travel to an Ebola-affected area in the 21 days before illness onset. - Hospitalizations: : No recent hospitalization is reported. Screenin:06 Abuse screen: Denies threats or abuse. Denies injuries from another. Nutritional aj1 screening: No deficits noted. Tuberculosis screening: No symptoms or risk factors identified. Assessment: 11:05 General: Appears in no apparent distress. comfortable, Behavior is calm, cooperative, aj1 appropriate for age. Pain: Complains of pain in back and chest Pain does not radiate. Neuro: Level of Consciousness is awake, alert, obeys commands, Oriented to person, place, time, situation. Cardiovascular: Reports chest pain, Heart tones S1 S2 present Patient's skin is warm and dry. Rhythm is sinus rhythm. Respiratory: Airway is patent Respiratory effort is even, unlabored, Respiratory pattern is regular, symmetrical, Breath sounds are clear bilaterally. GI: No signs and/or symptoms were reported involving the gastrointestinal system. : No signs and/or symptoms were reported regarding the genitourinary system. EENT: No signs and/or symptoms were reported regarding the EENT system. Derm: No signs and/or symptoms reported regarding the dermatologic system. Skin is pink, warm \\T\\ dry. normal. Musculoskeletal: No signs and/or symptoms reported regarding the musculoskeletal system. Circulation, motion, and sensation intact. 12:08 Reassessment: Patient appears in no apparent distress at this time. No changes from aj1 previously documented assessment. Patient and/or family updated on plan of care and expected duration. Pain level reassessed. Patient is alert, oriented x 3, equal unlabored respirations, skin warm/dry/pink. 13:10 Reassessment: Patient appears in no apparent distress at this time. No changes from aj1 previously documented assessment. Patient and/or family updated on plan of care and expected duration. Pain level reassessed. Patient is alert, oriented x 3, equal unlabored respirations, skin warm/dry/pink. Vital Signs: 10:52 BP 101 / 84; Pulse 80; Resp 16; Temp 97; Pulse Ox 98% ; Weight 77.11 kg; bp 12:08 BP 118 / 68; Pulse 59; Resp 18; Pulse Ox 99% on R/A; aj1 13:15 BP 128 / 70; Pulse 62; Resp 18; Pulse Ox 99% on R/A; aj1 ED Course: 10:40 Patient arrived in ED. mr 10:48 Yong Banks MD is Attending Physician. rn 10:52 Triage completed. bp 10:52 Arm band placed on. bp 10:57 EKG done, by phone technician. reviewed by Yong Banks MD. dt2 11:05 Patient has correct armband on for positive identification. 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 Pulse aj1 ox on. NIBP on. 11:05 No provider procedures requiring assistance completed. Patient maintains SpO2 aj1 saturation greater than 95% on room air. 11:30 X-ray completed. Portable x-ray completed in exam room. Patient tolerated procedure 1 well. 11:31 XRAY Chest (1 view) In Process Unspecified. EDMS 11:41 Initial lab(s) drawn, by me, sent to lab. Inserted saline lock: 22 gauge in right 3 antecubital area, using aseptic technique. Blood collected. 12:02 Nyla Luz, RN is Primary Nurse. [facility] 13:42 IV discontinued, intact, bleeding controlled, No redness/swelling at site. Pressure ss dressing applied. Administered Medications: No medications were administered Outcome: 12:43 Discharge ordered by . rn 13:42 Discharged to home ambulatory. ss 13:42 Condition: good 13:42 Discharge instructions given to patient, family, Instructed on discharge instructions, follow up and referral plans. Demonstrated understanding of instructions, follow-up care. 13:43 Patient left the ED. Signatures: Dispatcher [employer] EDAZ Nyla Luz, GERONIMO RN [facility] mr [facility] Yong Banks MD MD rn Smirch, Shelby, RN RN ss Herrera, Deanna [facility] Jose Jama RN RN bp Teague, Danielle 2
[2018-12-08 13:31] LABS: Anisocytosis 1+; Blood Morphology Comment NOTED (NOT SEEN); Elliptocytes 1+; Ovalocytes 1+; Platelet Estimate ADEQ; Urine White Blood Cell Casts OK
== END 2018-12-08 13:43 | disposition home or self-care (01) ==
LOC: ER 10:36
DX: R07.9 Chest pain, unspecified (principal); F41.9 Anxiety disorder, unspecified; F90.9 Attention-deficit hyperactivity disorder, unspecified type; F32.9 Major depressive disorder, single episode, unspecified; F31.9 Bipolar disorder, unspecified; G40.909 Epilepsy, unspecified, not intractable, without status epilepticus
CPT/HCPCS: 36415; 71045; 80048; 83690; 84484; 85025; 93005; 99285

== ENCOUNTER 2018-12-13 12:11 | Emergency (ER) | payer SELFPAY ==
--- OUTSIDE RECORDS SUMMARY | 2018-12-13 12:14 | XMS REPORT ---
:1975 [facility] Address [address] [place] [address] [address] [place] [address] Care Team Providers Name Role Phone Unavailable Unavailable Unavailable Problems This patient has no known problems. Allergies, Adverse Reactions, Alerts This patient has no known allergies or adverse reactions. Medications This patient has no known medications.
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
--- NOTE | 2018-12-13 13:11 | EDPHYS ---
Physician Documentation [facility] Name: Sidra Hodges Age: 43 yrs Sex: Female : 1975 Arrival Date: 12/13/2018 Time: 12:14 Bed 13 Private MD: ED Physician Pascual Lundy HPI: 12/13 13:04 This 43 yrs old Female presents to ER via EMS with complaints of upset and ry wanting assistance. 13:04 The patient presents to the emergency department with psychosis. Onset: The ry symptoms/episode began/occurred 3 week(s) ago. Past psychiatric history: Prior diagnosis: bipolar disorder. upset, not suicidal. Severity of symptoms: At their worst the symptoms were. Historical: - Allergies: 12:17 NKA; aj - Immunization history:: Adult Immunizations up to date. - Social history:: Smoking status: Patient/guardian denies using tobacco. - Ebola Screening: : Patient negative for fever greater than or equal to 101.5 degrees Fahrenheit, and additional compatible Ebola Virus Disease symptoms Patient denies exposure to infectious person Patient denies travel to an Ebola-affected area in the 21 days before illness onset No symptoms or risks identified at this time. - Family history:: not pertinent. ROS: 13:04 Constitutional: Negative for fever, chills, and weight loss, Eyes: Negative for injury, ry pain, redness, and discharge, ENT: Negative for injury, pain, and discharge, Neck: Negative for injury, pain, and swelling, Cardiovascular: Negative for chest pain, palpitations, and edema, Respiratory: Negative for shortness of breath, cough, wheezing, and pleuritic chest pain, Abdomen/GI: Negative for abdominal pain, nausea, vomiting, diarrhea, and constipation, Back: Negative for injury and pain, : Negative for injury, bleeding, discharge, and swelling, MS/Extremity: Negative for injury and deformity, Skin: Negative for injury, rash, and discoloration, Neuro: Negative for headache, weakness, numbness, tingling, and seizure, Allergy/Immunology: Negative for hives, rash, and allergies, Endocrine: Negative for neck swelling, polydipsia, polyuria, polyphagia, and marked weight changes, Hematologic/Lymphatic: Negative for swollen nodes, abnormal bleeding, and unusual bruising. 13:04 Psych: Positive for anxiety, depression. Exam: 13:04 Constitutional: This is a well developed, well nourished patient who is awake, alert, ry and in no acute distress. Head/Face: Normocephalic, atraumatic. Eyes: Pupils equal round and reactive to light, extra-ocular motions intact. Lids and lashes normal. Conjunctiva and sclera are non-icteric and not injected. Cornea within normal limits. Periorbital areas with no swelling, redness, or edema. ENT: Nares patent. No nasal discharge, no septal abnormalities noted. Tympanic membranes are normal and external auditory canals are clear. Oropharynx with no redness, swelling, or masses, exudates, or evidence of obstruction, uvula midline. Mucous membranes moist. Neck: Trachea midline, no thyromegaly or masses palpated, and no cervical lymphadenopathy. Supple, full range of motion without nuchal rigidity, or vertebral point tenderness. No Meningismus. Chest/axilla: Normal chest wall appearance and motion. Nontender with no deformity. No lesions are appreciated. Cardiovascular: Regular rate and rhythm with a normal S1 and S2. No gallops, murmurs, or rubs. Normal PMI, no JVD. No pulse deficits. Respiratory: Lungs have equal breath sounds bilaterally, clear to auscultation and percussion. No rales, rhonchi or wheezes noted. No increased work of breathing, no retractions or nasal flaring. Abdomen/GI: Soft, non-tender, with normal bowel sounds. No distension or tympany. No guarding or rebound. No evidence of tenderness throughout. Back: No spinal tenderness. No costovertebral tenderness. Full range of motion. Skin: Warm, dry with normal turgor. Normal color with no rashes, no lesions, and no evidence of cellulitis. MS/ Extremity: Pulses equal, no cyanosis. Neurovascular intact. Full, normal range of motion. Neuro: Awake and alert, GCS 15, oriented to person, place, time, and situation. Cranial nerves II-XII grossly intact. Motor strength 5/5 in all extremities. Sensory grossly intact. Cerebellar exam normal. Normal gait. Psych: Awake, alert, with orientation to person, place and time. Behavior, mood, and affect are within normal limits. Vital Signs: 12:17 BP 124 / 85; Pulse 78; Resp 16; Temp 98.4; Pulse Ox 98% on R/A; Weight 77.11 kg; Height aj 5 ft. 2 in. (157.48 cm); 12:17 Body Mass Index 31.09 (77.11 kg, 157.48 cm) aj MDM: 12:15 Patient medically screened. [facility] 13:06 Data reviewed: vital signs, nurses notes. [facility] Administered Medications: No medications were administered Disposition: 12/13/18 13:10 Discharged to Home. Impression: Bipolar disorder. - Condition is Stable. - Discharge Instructions: Bipolar Disorder. - Medication Reconciliation Form, Thank You Letter, Antibiotic Education, Prescription Opioid Use form. - Follow up: Private Physician; When: 2 - 3 days; Reason: Recheck today's complaints, Continuance of care, Re-evaluation by your physician. - Problem is new. - Symptoms have improved. Signatures: Katernya Aguillon RN Pascual Paris MD MD cha Corrections: (The following items were deleted from the chart) 13:45 13:10 12/13/2018 13:10 Discharged to Home. Impression: Bipolar disorder. Condition is aj Stable. Forms are Medication Reconciliation Form, Thank You Letter, Antibiotic Education, Prescription Opioid Use. Follow up: Private Physician; When: 2 - 3 days; Reason: Recheck today's complaints, Continuance of care, Re-evaluation by your physician. Problem is new. Symptoms have improved. [facility]
== END 2018-12-13 13:45 | disposition home or self-care (01) ==
LOC: ER 12:11
DX: F31.9 Bipolar disorder, unspecified (principal); F32.9 Major depressive disorder, single episode, unspecified
CPT/HCPCS: 99283

== ENCOUNTER 2018-12-26 13:05 | Emergency (ER) | payer SELFPAY ==
--- OUTSIDE RECORDS SUMMARY | 2018-12-26 13:07 | XMS REPORT ---
:1975 [facility] [address] [place] [address] [address] [place] [address] Care Team Providers Name Role Phone Unavailable Unavailable Unavailable Problems This patient has no known problems. Allergies, Adverse Reactions, Alerts This patient has no known allergies or adverse reactions. Medications This patient has no known medications.
[2018-12-26] MEDS ORDERED: IBUPROFEN 200 MG TAB PO ONE (13:45)
[2018-12-26] MEDS ORDERED: IBUPROFEN 400 MG TAB ONE (13:45)
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
--- NOTE | 2018-12-26 13:55 | ER ---
Nurse's Notes [facility] Name: Sidra Hodges Age: 43 yrs Sex: Female : 1975 Arrival Date: 12/26/2018 Time: 13:07 Bed 23 Private MD: Diagnosis: Pain in right lower leg Presentation: 12/26 13:07 Presenting complaint: EMS states: pt c/o leg pain and swelling on both legs. There ca1 appears to be ant bites on both feet. Transition of care: patient was not received from another setting of care. Onset of symptoms was December 26, 2018. Risk Assessment: Do you want to hurt yourself or someone else? Patient reports no desire to harm self or others. Initial Sepsis Screen: Does the patient meet any 2 criteria? No. Patient's initial sepsis screen is negative. Does the patient have a suspected source of infection? No. Patient's initial sepsis screen is negative. Care prior to arrival: None. 13:07 Method Of Arrival: EMS: [facility] ca1 13:07 Acuity: CARMITA 4 ca1 Triage Assessment: 13:09 General: Appears in no apparent distress. comfortable, Behavior is calm, cooperative, ca1 appropriate for age. Pain: Complains of pain in right leg and left leg. 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 - Social history:: Smoking status: Patient/guardian denies using tobacco. - Ebola Screening: : Patient negative for fever greater than or equal to 101.5 degrees Fahrenheit, and additional compatible Ebola Virus Disease symptoms Patient denies exposure to infectious person Patient denies travel to an Ebola-affected area in the 21 days before illness onset. Screenin:15 Abuse screen: Denies threats or abuse. Denies injuries from another. Nutritional ca1 screening: No deficits noted. Tuberculosis screening: No symptoms or risk factors identified. Fall Risk None identified. Assessment: 13:15 General: Appears in no apparent distress. comfortable, Behavior is calm, cooperative, ca1 appropriate for age. Pain: Complains of pain in right collier and right knee and left leg and right leg. 13:15 Neuro:. Neuro: Level of Consciousness is awake, alert, obeys commands, Oriented to ca1 person, place, time, situation. Cardiovascular: Heart tones S1 S2 present Capillary refill < 3 seconds Patient's skin is warm and dry. Respiratory: Airway is patent Respiratory effort is even, unlabored, Respiratory pattern is regular, symmetrical, Breath sounds are clear bilaterally. Derm: Skin is intact, is healthy with good turgor, Skin is pink, warm \T\ dry. Musculoskeletal: Circulation, motion, and sensation intact. Capillary refill < 3 seconds, Range of motion: intact in all extremities, Swelling present in right leg and left leg. 14:13 Reassessment: Patient appears in no apparent distress at this time. Patient is alert, ca1 oriented x 3, equal unlabored respirations, skin warm/dry/pink. Vital Signs: 13:09 BP 105 / 56; Pulse 72; Resp 16 S; Temp 98.4(O); Pulse Ox 98% on R/A; Weight 68.04 kg ca1 (R); Height 5 ft. 1 in. (154.94 cm) (R); 14:13 BP 110 / 63; Pulse 70; Resp 16 S; Pulse Ox 99% on R/A; ca1 13:09 Body Mass Index 28.34 (68.04 kg, 154.94 cm) ca1 ED Course: 13:07 Patient arrived in ED. ca1 13:07 Cristina Sewell FNP-C is PHCP. kb 13:07 Pascual Lundy MD is Attending Physician. kb 13:08 Triage completed. ca1 13:09 Arm band placed on right wrist. ca1 13:15 Patient has correct armband on for positive identification. Bed in low position. Call ca1 light in reach. Side rails up X2. Pulse ox on. NIBP on. Warm blanket given. 13:15 No provider procedures requiring assistance completed. ca1 13:28 Crissy Moss, GERONIMO is Primary Nurse. ca1 13:32 Patient taken to ultrasound. via stretcher. ca1 14:12 Tib Fib Right XRAY In Process Unspecified. EDMS 14:14 Patient did not have IV access during this emergency room visit. ca1 14:15 US Extremity Venous Unilateral Ltd In Process Unspecified. EDMS Administered Medications: 13:32 Drug: Ibuprofen 600 mg Route: PO; ca1 13:56 Follow up: Response: No adverse reaction; Pain is decreased ca1 Outcome: 13:55 Discharge ordered by MD. magallanes 14:14 Discharged to home ambulatory. ca1 14:14 Condition: stable 14:14 Discharge instructions given to patient, Instructed on discharge instructions, follow up and referral plans. Demonstrated understanding of instructions, follow-up care. 14:14 Patient left the ED. ca1 Signatures: Dispatcher [employer] Cristina Mandujano, BRIAN CROFT-Crissy Davidson RN RN ca1
--- NOTE | 2018-12-26 14:39 | RAD REPORT ---
EXAM DESCRIPTION: US - Extremity Venous Uni Ltd - 12/26/2018 2:14 pm COMPARISON: Leg pain and swelling TECHNIQUE: Real-time sonographic evaluation of the right lower extremity deep venous systems was per formed. FINDINGS: Normal compressibility, flow augmentation, phasic flow and spontaneous flow are identified in the right lower extremity common femoral, superficial femoral, popliteal and posterior tibial vei ns. No intraluminal filling defects seen. IMPRESSION: No DVT in the right lower extremity.
--- NOTE | 2018-12-26 15:30 | RAD REPORT ---
EXAM DESCRIPTION: RAD - Tib Fib Right - 12/26/2018 2:10 pm CLINICAL HISTORY: Right leg pain and swelling COMPARISON: March 2018 FINDINGS: No fracture is identified. There is no dislocation or periosteal reaction noted. No acute or suspicious bony finding. Prominent edema changes present in the subcutaneous fatty tissues. No air or foreign body in the soft tissues. IMPRESSION: No acute bone or joint finding. Prominent edema changes in the subcutaneous fatty tissues. No air or foreign body in the soft tissues .
== END 2018-12-26 14:14 | disposition home or self-care (01) ==
LOC: ER 13:05
DX: M79.661 Pain in right lower leg (principal)
CPT/HCPCS: 93971; 99284

== ENCOUNTER 2018-12-29 13:10 | Emergency (ER) | payer SELFPAY ==
--- OUTSIDE RECORDS SUMMARY | 2018-12-29 13:12 | XMS REPORT ---
:1975 [facility] Address [address] [place] [address] [address] [place] [address] Care Team Providers Name Role Phone Unavailable Unavailable Unavailable Problems This patient has no known problems. Allergies, Adverse Reactions, Alerts This patient has no known allergies or adverse reactions. Medications This patient has no known medications.
--- NOTE | 2018-12-29 14:36 | ER ---
Nurse's Notes [facility] Name: Sidra Hodges Age: 43 yrs Sex: Female : 1975 Arrival Date: 12/29/2018 Time: 13:11 Bed 12 Private MD: Diagnosis: Sprain of ankle Presentation: 12/29 13:19 Presenting complaint: Patient states: "I fell going into the bus and I fell". Pt aa5 reports fall occurred 3-4 days ago. Pt c/o right knee pain, left shoulder pain. Pt denies LOC, denies head injury. Pt states "My feet have been swollen for about 3 weeks". Transition of care: patient was not received from another setting of care. Onset of symptoms was December 2018. Risk Assessment: Do you want to hurt yourself or someone else? Patient reports no desire to harm self or others. Initial Sepsis Screen: Does the patient meet any 2 criteria? No. Patient's initial sepsis screen is negative. Does the patient have a suspected source of infection? No. Patient's initial sepsis screen is negative. Care prior to arrival: None. 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 - Social history:: Smoking status: Patient/guardian denies using tobacco. - Ebola Screening: : No symptoms or risks identified at this time. Screenin:11 Abuse screen: Denies threats or abuse. Denies injuries from another. Nutritional ss screening: No deficits noted. Tuberculosis screening: Never had TB. Fall Risk None identified. Assessment: 14:11 General: Appears in no apparent distress. comfortable, Behavior is calm, cooperative. ss Pain: Complains of pain in right ankle, L SHOULDER Pain currently is 9 out of 10 on a pain scale. Pain began >3 DAYS AGO. Neuro: Level of Consciousness is awake, alert, obeys commands, Oriented to person, place, time, situation. Cardiovascular: Pulses are palpable in right posterior tibial artery and left posterior tibial artery. Respiratory: Airway is patent is compromised Respiratory effort is even, unlabored. EENT: Oral mucosa is moist. Throat is clear. Derm: Skin is pink, warm \\T\\ dry. normal. Musculoskeletal: Circulation, motion, and sensation intact. Range of motion: intact in all extremities, Swelling MILD SWELLING NOTED TO ANKLE. PT REPORTS THIS HAS BEEN OCCURING > 3 WEEKS. Vital Signs: 13:21 BP 107 / 66; Pulse 75; Resp 16 S; Temp 98.5(O); Pulse Ox 99% on R/A; Pain 9/10; aa5 ED Course: 13:11 Patient arrived in ED. rg4 13:19 Arm band placed on. aa5 13:20 Triage completed. aa5 14:11 Patient has correct armband on for positive identification. Bed in low position. Call ss light in reach. 14:16 Tom Petersen MD is Attending Physician. gs 14:35 Ben Hines MD is Referral Physician. 14:49 Samantha Du RN is Primary Nurse. ss 14:50 No provider procedures requiring assistance completed. Patient did not have IV access ss during this emergency room visit. Farshad wrap to right ankle. Administered Medications: No medications were administered Outcome: 14:36 Discharge ordered by . gs 15:00 Discharged to home via wheelchair, PATIENT TICKET FOR FREE BUS RIDE ss 15:00 Condition: good 15:00 Discharge instructions given to patient, Instructed on discharge instructions, follow up and referral plans. Demonstrated understanding of instructions, follow-up care. 15:02 Patient left the ED. ss Signatures: Maggy Beasley RN RN [facility] Samantha Du RN RN ss Garcia, Rubi [facility] Tom Petersen MD MD Corrections: (The following items were deleted from the chart) 13:22 13:19 Method Of Arrival: Wheelchair aa5 aa5 13:22 13:21 BP 107 / 66; Pulse 75bpm; Resp 16bpm; Spontaneous; Pulse Ox 99% RA; Temp 98.5F aa5 Oral; aa5
--- NOTE | 2018-12-29 14:36 | EDPHYS ---
Physician Documentation [facility] Name: Sidra Hodges Age: 43 yrs Sex: Female : 1975 Arrival Date: 12/29/2018 Time: 13:11 Bed 12 Private MD: ED Physician Tom Petersen HPI: 12/29 14:34 This 43 yrs old Female presents to ER via EMS with complaints of Ankle Injury. gs 14:34 The patient presents with an injury. The complaints affect the right ankle. Onset: The gs symptoms/episode began/occurred 4 day(s) ago. Context: resulted from the patient falling. Associated signs and symptoms: Pertinent negatives: calf tenderness, fever, numbness, swelling, weakness. Modifying factors: The symptoms are alleviated by elevation of extremity, the symptoms are aggravated by movement. Severity of symptoms: At their worst the symptoms were mild, in the emergency department the symptoms are unchanged. The patient has experienced similar episodes in the past, a few times. 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 - Social history:: Smoking status: Patient/guardian denies using tobacco. - Ebola Screening: : No symptoms or risks identified at this time. ROS: 14:34 All other systems are negative. gs Exam: 14:34 Head/Face: Normocephalic, atraumatic. Eyes: Pupils equal round and reactive to light, gs extra-ocular motions intact. Lids and lashes normal. Conjunctiva and sclera are non-icteric and not injected. Cornea within normal limits. Periorbital areas with no swelling, redness, or edema. ENT: Nares patent. No nasal discharge, no septal abnormalities noted. Tympanic membranes are normal and external auditory canals are clear. Oropharynx with no redness, swelling, or masses, exudates, or evidence of obstruction, uvula midline. Mucous membranes moist. Neck: Trachea midline, no thyromegaly or masses palpated, and no cervical lymphadenopathy. Supple, full range of motion without nuchal rigidity, or vertebral point tenderness. No Meningismus. Chest/axilla: Normal chest wall appearance and motion. Nontender with no deformity. No lesions are appreciated. Cardiovascular: Regular rate and rhythm with a normal S1 and S2. No gallops, murmurs, or rubs. Normal PMI, no JVD. No pulse deficits. Respiratory: Lungs have equal breath sounds bilaterally, clear to auscultation and percussion. No rales, rhonchi or wheezes noted. No increased work of breathing, no retractions or nasal flaring. Abdomen/GI: Soft, non-tender, with normal bowel sounds. No distension or tympany. No guarding or rebound. No evidence of tenderness throughout. Back: No spinal tenderness. No costovertebral tenderness. Full range of motion. Skin: Warm, dry with normal turgor. Normal color with no rashes, no lesions, and no evidence of cellulitis. Neuro: Awake and alert, GCS 15, oriented to person, place, time, and situation. Cranial nerves II-XII grossly intact. Motor strength 5/5 in all extremities. Sensory grossly intact. Cerebellar exam normal. Normal gait. 14:34 Constitutional: The patient appears alert, awake. 14:34 Musculoskeletal/extremity: Pulses: are normal with no appreciated deficits, Sensation intact. Joints: the right ankle displays tenderness, mild. Vital Signs: 13:21 BP 107 / 66; Pulse 75; Resp 16 S; Temp 98.5(O); Pulse Ox 99% on R/A; Pain 9/10; aa5 MDM: 14:19 Patient medically screened. 14:34 Data reviewed: vital signs, nurses notes. Counseling: I had a detailed discussion with gs the patient and/or guardian regarding: the historical points, exam findings, and any diagnostic results supporting the discharge/admit diagnosis. 12/29 14:36 Order name: Farshad Wrap; Complete Time: 14:38 gs Administered Medications: No medications were administered Disposition: 12/29/18 14:36 Discharged to Home. Impression: Sprain of ankle. - Condition is Stable. - Discharge Instructions: Ankle Sprain. - Medication Reconciliation Form, Thank You Letter, Antibiotic Education, Prescription Opioid Use form. - Follow up: Ben Hines MD; When: 2 - 3 days; Reason: Re-evaluation by your physician. Signatures: Maggy Beasley RN RN aa5 Samantha Du RN RN ss Tom Petersen MD MD gs Corrections: (The following items were deleted from the chart) 15:02 14:36 12/29/2018 14:36 Discharged to Home. Impression: Sprain of ankle. Condition is ss Stable. Forms are Medication Reconciliation Form, Thank You Letter, Antibiotic Education, Prescription Opioid Use. Follow up: Ben Hines; When: 2 - 3 days; Reason: Re-evaluation by your physician. gs
== END 2018-12-29 15:02 | disposition home or self-care (01) ==
LOC: ER 13:10
DX: S93.401A Sprain of unspecified ligament of right ankle, initial encounter (principal); W19.XXXA Unspecified fall, initial encounter; F90.9 Attention-deficit hyperactivity disorder, unspecified type; F41.9 Anxiety disorder, unspecified; F31.9 Bipolar disorder, unspecified
CPT/HCPCS: 99283

== ENCOUNTER 2018-12-30 04:14 | Emergency (ER) | payer SELFPAY ==
--- OUTSIDE RECORDS SUMMARY | 2018-12-30 04:17 | XMS REPORT ---
:1975 [facility] Address [address] [place] [address] [address] [place] [address] Care Team Providers Name Role Phone Unavailable Unavailable Unavailable Problems This patient has no known problems. Allergies, Adverse Reactions, Alerts This patient has no known allergies or adverse reactions. Medications This patient has no known medications.
--- NOTE | 2018-12-30 05:58 | ER ---
Nurse's Notes [facility] Name: Sidra Hodges Age: 43 yrs Sex: Female : 1975 Arrival Date: 12/30/2018 Time: 04:16 Bed 8 Private MD: Diagnosis: Contusion of left shoulder;Anxiety disorder, unspecified;Superficial injury of head Presentation: 12/30 04:20 Presenting complaint: EMS states: EMS reports they were called by PD, PD reports she ea was having a panic attack and fell over. It was reported pt did not have LOC but did bite her cheek. Pt complaining of left arm pain and back pain. Transition of care: patient was not received from another setting of care. Onset of symptoms was December 30, 2018. Risk Assessment: Do you want to hurt yourself or someone else? Patient reports no desire to harm self or others. Initial Sepsis Screen: Does the patient meet any 2 criteria? No. Patient's initial sepsis screen is negative. Does the patient have a suspected source of infection? No. Patient's initial sepsis screen is negative. Care prior to arrival: None. 04:20 Method Of Arrival: EMS: [facility] ea 04:20 Acuity: CARMITA 3 ea Historical: - Allergies: 04:28 NKA; ea - Home Meds: 04:28 Tegretol Oral [Active]; oxcarbazepine 300 mg Oral tab 1 tab 2 times per day [Active]; ea Depakote Oral [Active]; - PMHx: 04:28 hemorrhoids; epilepsy; Depression; Bipolar disorder; Anxiety; ADD/ADHD; ea - Immunization history:: Adult Immunizations unknown. - Social history:: Smoking status: Patient/guardian denies using tobacco. - Ebola Screening: : No symptoms or risks identified at this time. - Family history:: not pertinent. - Hospitalizations: : No recent hospitalization is reported. Screenin:29 Abuse screen: Denies threats or abuse. Nutritional screening: No deficits noted. ea Tuberculosis screening: No symptoms or risk factors identified. Fall Risk None identified. Assessment: 04:25 General: Appears in no apparent distress. Behavior is quiet. Pain: Complains of pain in ea left shoulder and upper back pain. Neuro: Level of Consciousness is awake, alert, obeys commands, Oriented to person, place, time, situation. Cardiovascular: Patient's skin is warm and dry. Respiratory: Airway is patent Respiratory effort is even, unlabored, Respiratory pattern is regular, symmetrical. Derm: Skin is pink, warm \T\ dry. Musculoskeletal: Circulation, motion, and sensation intact. 05:00 Reassessment: Patient and/or family updated on plan of care and expected duration. Pain ea level reassessed. Patient is alert, oriented x 3, equal unlabored respirations, skin warm/dry/pink. 06:55 Reassessment: Patient and/or family updated on plan of care and expected duration. Pain ea level reassessed. Patient is alert, oriented x 3, equal unlabored respirations, skin warm/dry/pink. Discharge instruction given to patient, verbalized the understanding of instruction. Pt left ED ambulatory, pt tolerating well. Vital Signs: 04:25 BP 109 / 59; Pulse 84; Resp 18; Temp 97.8(O); Pulse Ox 99% on R/A; Weight 62.6 kg; ea Height 5 ft. (152.40 cm); Pain 9/10; 05:48 BP 90 / 60; Pulse 64; Resp 18; Pulse Ox 100% on R/A; ea 06:00 BP 94 / 58; Pulse 60; Resp 18; Pulse Ox 99% ; ea 07:01 BP 99 / 60; Pulse 60; Resp 18; Temp 97.8(O); Pulse Ox 99% ; ea 04:25 Body Mass Index 26.95 (62.60 kg, 152.40 cm) ea [place] Coma Score: 04:49 Eye Response: spontaneous(4). Verbal Response: oriented(5). Motor Response: obeys rn commands(6). Total: 15. 05:56 Eye Response: spontaneous(4). Verbal Response: oriented(5). Motor Response: obeys rn commands(6). Total: 15. 05:56 Eye Response: spontaneous(4). Verbal Response: oriented(5). Motor Response: obeys rn commands(6). Total: 15. ED Course: 04:16 Patient arrived in ED. ds1 04:20 Kesha May, RN is Primary Nurse. ea 04:24 Triage completed. ea 04:28 Arm band placed on right wrist. Patient placed in an exam room, on a stretcher, on ea pulse oximetry. 04:29 Patient has correct armband on for positive identification. Bed in low position. Call ea light in reach. Side rails up X2. 04:40 Yong Banks MD is Attending Physician. rn 05:04 CT Head Brain wo Cont In Process Unspecified. EDMS 05:06 XRAY Shoulder LEFT 2 view In Process Unspecified. EDMS 05:27 Head Brain Wo Cont In Process Unspecified. EDMS 06:57 No provider procedures requiring assistance completed. Patient did not have IV access ea during this emergency room visit. Administered Medications: No medications were administered Outcome: 05:57 Discharge ordered by MD. rn 06:58 Discharged to home ambulatory. ea 06:58 Condition: improved 06:58 Discharge instructions given to patient, Instructed on discharge instructions, follow up and referral plans. Demonstrated understanding of instructions, follow-up care. 07:01 Patient left the ED. ea Signatures: Dispatcher [employer] [facility] Mae Machado ds1 Yong Banks MD MD rn Antunez, Elena, RN RN ea Corrections: (The following items were deleted from the chart) 04:26 04:20 Presenting complaint: EMS states: EMS reports they were called by PD, PD reports ea she was having a panic attack and fell over. It was reported pt did not have LOC but did bite her cheek. ea 06:57 05:00 Reassessment: Patient and/or family updated on plan of care and expected ea duration. Pain level reassessed. Patient is alert, oriented x 3, equal unlabored respirations, skin warm/dry/pink. ea 06:57 05:00 Reassessment: Patient and/or family updated on plan of care and expected ea duration. Pain level reassessed. Patient is alert, oriented x 3, equal unlabored respirations, skin warm/dry/pink. Discharge instruction given to patient, verbalized the understanding of instruction. Pt left ED ambulatory, pt tolerating well. ea
--- NOTE | 2018-12-30 05:58 | EDPHYS ---
Physician Documentation [facility] Name: Sidra Hodges Age: 43 yrs Sex: Female : 1975 Arrival Date: 12/30/2018 Time: 04:16 Bed 8 Private MD: ED Physician Yong Banks HPI: 12/30 04:49 This 43 yrs old Female presents to ER via EMS with complaints of Anxiety. rn 04:49 The patient or guardian reports injury, pain. The complaints affect the left occipital rn area. Onset: The symptoms/episode began/occurred just prior to arrival. Severity of symptoms: At their worst the symptoms were mild, in the emergency department the symptoms are unchanged. The patient has experienced similar episodes in the past. The patient has been recently seen by a physician:. Reports was having an anxiety attack, EMS called by PD, reports fell from standing, no LOC, not on blood thinners, reports pain to left shoulder and left head. Seen here yesterday for right ankle pain from other fall. . Historical: - Allergies: 04:28 NKA; ea - Home Meds: 04:28 Tegretol Oral [Active]; oxcarbazepine 300 mg Oral tab 1 tab 2 times per day [Active]; ea Depakote Oral [Active]; - PMHx: 04:28 hemorrhoids; epilepsy; Depression; Bipolar disorder; Anxiety; ADD/ADHD; ea - Immunization history:: Adult Immunizations unknown. - Social history:: Smoking status: Patient/guardian denies using tobacco. - Ebola Screening: : No symptoms or risks identified at this time. - Family history:: not pertinent. - Hospitalizations: : No recent hospitalization is reported. ROS: 04:49 Constitutional: Negative for fever, chills, and weight loss, Eyes: Negative for injury, rn pain, redness, and discharge, Neck: Negative for injury, pain, and swelling, Cardiovascular: Negative for chest pain, palpitations, and edema, Respiratory: Negative for shortness of breath, cough, wheezing, and pleuritic chest pain, Abdomen/GI: Negative for abdominal pain, nausea, vomiting, diarrhea, and constipation, MS/Extremity: + left shoulder pain Skin: Negative for injury, rash, and discoloration, Neuro: Negative for weakness, numbness, tingling, and seizure. Exam: 04:49 Constitutional: This is a well developed, well nourished patient who is awake, alert, rn and in no acute distress. Eating a bag of chips. Head/Face: Normocephalic, atraumatic. Eyes: Pupils equal round and reactive to light, extra-ocular motions intact. Lids and lashes normal. Conjunctiva and sclera are non-icteric and not injected. Cornea within normal limits. Periorbital areas with no swelling, redness, or edema. Neck: Trachea midline, no thyromegaly or masses palpated, and no cervical lymphadenopathy. Supple, full range of motion without nuchal rigidity, or vertebral point tenderness. No Meningismus. Chest/axilla: Normal chest wall appearance and motion. Nontender with no deformity. No lesions are appreciated. Back: No spinal tenderness. No costovertebral tenderness. Full range of motion. Skin: Warm, dry with normal turgor. Normal color with no rashes, no lesions, and no evidence of cellulitis. MS/ Extremity: Pulses equal, no cyanosis. + painful ROM left shoulder without gross deformity Neuro: Awake and alert, GCS 15, oriented to person, place, time, and situation. Cranial nerves II-XII grossly intact. Motor strength 5/5 in all extremities. Sensory grossly intact. Cerebellar exam normal. Vital Signs: 04:25 BP 109 / 59; Pulse 84; Resp 18; Temp 97.8(O); Pulse Ox 99% on R/A; Weight 62.6 kg; ea Height 5 ft. (152.40 cm); Pain 9/10; 05:48 BP 90 / 60; Pulse 64; Resp 18; Pulse Ox 100% on R/A; ea 06:00 BP 94 / 58; Pulse 60; Resp 18; Pulse Ox 99% ; ea 07:01 BP 99 / 60; Pulse 60; Resp 18; Temp 97.8(O); Pulse Ox 99% ; ea 04:25 Body Mass Index 26.95 (62.60 kg, 152.40 cm) ea [place] Coma Score: 04:49 Eye Response: spontaneous(4). Verbal Response: oriented(5). Motor Response: obeys rn commands(6). Total: 15. 05:56 Eye Response: spontaneous(4). Verbal Response: oriented(5). Motor Response: obeys rn commands(6). Total: 15. 05:56 Eye Response: spontaneous(4). Verbal Response: oriented(5). Motor Response: obeys rn commands(6). Total: 15. MDM: 04:40 Patient medically screened. rn 05:56 Differential diagnosis: Contusion of. Data reviewed: vital signs, nurses notes, rn radiologic studies, CT scan, plain films, and as a result, I will discharge patient. Counseling: I had a detailed discussion with the patient and/or guardian regarding: the historical points, exam findings, and any diagnostic results supporting the discharge/admit diagnosis, lab results, radiology results, the need for outpatient follow up, to return to the emergency department if symptoms worsen or persist or if there are any questions or concerns that arise at home. Response to treatment: the patient's symptoms have mildly improved after treatment, and as a result, I will discharge patient. Special discussion: Based on the patient's history, exam and DX evaluation, there is no indication for emergent intervention or inpatient [place]. It is understood by the patient/guardian that if the SXs persist or worsen they need to return immediately for re-evaluation. I discussed with the patient/guardian in detail that at this point there is no indication for admission to the hospital. It is understood, however, that if the symptoms persist or worsen the patient needs to return immediately for re-evaluation. 12/30 04:48 Order name: XRAY Shoulder LEFT 2 view rn 12/30 04:48 Order name: CT Head Brain wo Cont rn 12/30 05:12 Order name: Head Brain Wo Cont EDMS Administered Medications: No medications were administered Disposition: 12/30/18 05:57 Discharged to Home. Impression: Contusion of left shoulder, Anxiety disorder, unspecified, Superficial injury of head. - Condition is Stable. - Discharge Instructions: Contusion, Head Injury, Adult, Shoulder Pain. - Medication Reconciliation Form, Thank You Letter, Antibiotic Education, Prescription Opioid Use form. - Follow up: Private Physician; When: As needed; Reason: Recheck today's complaints, Re-evaluation by your physician. - Problem is an ongoing problem. - Symptoms have improved. Signatures: Dispatcher [employer] EDMS Yong Banks MD MD rn Antunez, Elena, RN RN ea Corrections: (The following items were deleted from the chart) 07:01 05:57 12/30/2018 05:57 Discharged to Home. Impression: Contusion of left shoulder; ea Anxiety disorder, unspecified; Superficial injury of head. Condition is Stable. Forms are Medication Reconciliation Form, Thank You Letter, Antibiotic Education, Prescription Opioid Use. Follow up: Private Physician; When: As needed; Reason: Recheck today's complaints, Re-evaluation by your physician. Problem is an ongoing problem. Symptoms have improved. rn
--- NOTE | 2018-12-30 08:03 | RAD REPORT ---
EXAM DESCRIPTION: RAD - Shoulder Left 2 View - 12/30/2018 5:06 am CLINICAL HISTORY: Left shoulder pain status post fall FINDINGS: No fracture or dislocation is seen. Calcifications superior to the humeral head may indic ate calcific tendinitis
--- NOTE | 2018-12-30 09:41 | RAD REPORT ---
EXAM DESCRIPTION: CT - Head Brain Wo Cont - 12/30/2018 6:43 am CLINICAL HISTORY: 43-year-old female status post fall while having a panic attack TECHNIQUE: Multiple axial CT images of the brain were performed followed by sagittal and coronal rec onstructed images. The CT study is performed according to ALARA (as low as reasonably achievable) or ALARA/IMAGE GENTLY, with automatic adjustment of mA and/or kV according to patient size. Performed on: 12/30/2018 at 5:18 AM Comparisons: None. FINDINGS: There is no evidence of mass, acute mass effect or midline shift. There are no acute extra -axial fluid collections. There is no evidence of acute intracranial hemorrhage. The cerebral sulci and ventricles are normal in size and configuration. There are no focal abnormal areas of increased or decreased attenuation. There is a 0.8 x 0.7 x 0.7 c m calcification along the posterior medial right occipital lobe. There is no significant mucosal thickening of the paranasal sinuses. The mastoid air cells are clear. The orbital contents are grossly unremarkable. No acute osseous abnormalities are identified. No focal soft tissue abnormalities are identified. IMPRESSION: There is no evidence of acute intracranial pathology. Electronically signed by: Unique Ortiz DO 12/30/2018 5:47 AM CDT Due to temporary technical issues with the PACS/Fluency reporting system, reports are being signed by the in house radiologist as a courtesy to ensure prompt reporting. The interpreting radiologist is f ully responsible for the content of the report.
== END 2018-12-30 07:01 | disposition home or self-care (01) ==
LOC: ER 04:14
DX: S40.012A Contusion of left shoulder, initial encounter (principal); S00.90XA Unspecified superficial injury of unspecified part of head, initial encounter; W18.39XA Other fall on same level, initial encounter; F41.9 Anxiety disorder, unspecified; F32.9 Major depressive disorder, single episode, unspecified
CPT/HCPCS: 70450; 99284

== ENCOUNTER 2018-12-31 10:55 | Emergency (ER) | payer SELFPAY ==
--- OUTSIDE RECORDS SUMMARY | 2018-12-31 10:59 | XMS REPORT ---
:1975 [facility] Address [address] [place] [address] [address] [place] [address] Care Team Providers Name Role Phone Unavailable Unavailable Unavailable Problems This patient has no known problems. Allergies, Adverse Reactions, Alerts This patient has no known allergies or adverse reactions. Medications This patient has no known medications.
[2018-12-31 11:43] LABS: Basophils % 0.9 % (0-1.3); Eosinophils % 2.7 % (0-4.4); Hematocrit 29.6 % (36.0-45.0); Lymphocytes % 44.5 % (15.3-44.8); MPV 9.2 fL (7.6-11.3); Monocytes % 10.6 % (3.3-12.3); RBC Red Blood Cell Count 3.59 M/uL (3.86-4.86)
[2018-12-31 12:04] LABS: ALT/SGPT 16 U/L (12-78); AST/SGOT 10 U/L (15-37); Albumin 2.7 g/dL (3.4-5.0); Alkaline Phosphatase 73 U/L (45-117); BUN Blood Urea Nitrogen 17 mg/dL (7-18); Bicarbonate 25 mmol/L (21-32); Bilirubin Direct < 0.1 mg/dL (0-0.2); Bilirubin Total 0.2 mg/dL (0.2-1.0); Glucose Level 80 mg/dL (74-106); Lipase 100 U/L (73-393); Potassium 4.5 mmol/L (3.5-5.1); Protein, Total 7.4 g/dL (6.4-8.2); Sodium Level 142 mmol/L (136-145)
--- NOTE | 2018-12-31 12:52 | RAD REPORT ---
EXAM DESCRIPTION: CT - Abdomen Pelvis W Contrast - 12/31/2018 12:36 pm CLINICAL HISTORY: Abdominal pain with nausea. COMPARISON: September 2017 TECHNIQUE: Computed axial tomography of the abdomen pelvis was obtained. 100 cc Isovue-300 was admin istered intravenously. Oral contrast was not requested which limits evaluation of bowel. All CT scans are performed using dose optimization technique as appropriate and may include automated exposure control or mA/KV adjustment according to patient size. FINDINGS: Gallstones in a contracted gallbladder. The liver, spleen, pancreas, adrenal and kidneys appear unremarkable. There is no evidence of diverticulitis. Normal appendix Wall of the rectum appears thickened IMPRESSION: Wall of the rectum appears thickened which may indicate inflammation Gallstones in a contracted gallbladder.
--- NOTE | 2018-12-31 12:57 | ER ---
Nurse's Notes [facility] Name: Sidra Hodges Age: 43 yrs Sex: Female : 1975 Arrival Date: 12/31/2018 Time: 10:57 Bed 15 Private MD: None, None Diagnosis: Lower abdominal pain, unspecified;Dysuria Presentation: 12/31 11:00 Presenting complaint: EMS states: Left shoulder pain that began this morning, denies sg trauma or injury, ROM intact, pt reports pain feels sharp at times and that it comes and goes. Transition of care: patient was not received from another setting of care. Onset of symptoms was December 31, 2018. Risk Assessment: Do you want to hurt yourself or someone else? Patient reports no desire to harm self or others. Initial Sepsis Screen: Does the patient meet any 2 criteria? No. Patient's initial sepsis screen is negative. Does the patient have a suspected source of infection? No. Patient's initial sepsis screen is negative. Care prior to arrival: Glucose check: 80. 11:00 Method Of Arrival: EMS: [facility] 11:00 Acuity: CARMITA 4 sg Triage Assessment: 13:20 General: Appears in no apparent distress. Behavior is calm. iw Historical: - Allergies: 11:00 NKA; sg - PMHx: 11:00 ADD/ADHD; Anxiety; Bipolar disorder; Depression; epilepsy; hemorrhoids; sg - Immunization history:: Adult Immunizations up to date. - Social history:: Smoking status: Patient/guardian denies using tobacco. - Ebola Screening: : Patient negative for fever greater than or equal to 101.5 degrees Fahrenheit, and additional compatible Ebola Virus Disease symptoms Patient denies exposure to infectious person Patient denies travel to an Ebola-affected area in the 21 days before illness onset No symptoms or risks identified at this time. Screenin:13 Abuse screen:. Nutritional screening: No deficits noted. Tuberculosis screening: No sg symptoms or risk factors identified. Never had TB. Fall Risk None identified. Assessment: 10:55 General: Appears in no apparent distress. well groomed, well developed, well nourished, sg Behavior is calm, cooperative, appropriate for age. Pain: Complains of pain in anterior aspect of left shoulder and posterior aspect of left shoulder Quality of pain is described as aching. Neuro: Level of Consciousness is awake, alert, obeys commands, Oriented to person, place, time, Bone Char Operator are equal bilaterally Speech is normal, Facial symmetry appears normal. Cardiovascular: Capillary refill is brisk in bilateral fingers Patient's skin is warm and dry. Chest pain is denied. Respiratory: Airway is patent Respiratory effort is even, unlabored, Respiratory pattern is regular, symmetrical. GI: Abdomen is round non-distended. : No signs and/or symptoms were reported regarding the genitourinary system. EENT: No signs and/or symptoms were reported regarding the EENT system. Derm: Skin is pink, warm \T\ dry. Musculoskeletal: Circulation, motion, and sensation intact. Range of motion: intact in all extremities, Reports pain in anterior aspect of left shoulder. 11:11 Reassessment: Maggy RN at bedside for translation, pt is primarily swedish speaking sg only, pt complaining of urinating on herself x1 year, also reports pain in the foot that started a few days ago. 13:19 Reassessment: Patient appears in no apparent distress at this time. Patient and/or iw family updated on plan of care and expected duration. Pain level reassessed. Patient is alert, oriented x 3, equal unlabored respirations, skin warm/dry/pink. Patient states feeling better. Patient states symptoms have improved. Vital Signs: 11:02 BP 117 / 74; Pulse 73; Resp 14 S; Temp 98.8; Pulse Ox 98% on R/A; sg 12:45 BP 120 / 70; Pulse 77; Resp 14; Pulse Ox 99% on R/A; sg ED Course: 10:57 Patient arrived in ED. sg 10:58 Arm band placed on. sg 11:02 Triage completed. sg 11:02 Artur Watkins PA is PHCP. [facility] 11:02 Boris Olivera MD is Attending Physician. [facility] 11:03 None, None is Private Physician. sg 11:11 Blanco Davis, GERONIMO is Primary Nurse. sg 11:29 Initial lab(s) drawn, by me, sent to lab. Inserted saline lock: 22 gauge in right jb1 antecubital area, using aseptic technique. Blood collected. 11:29 Urine collected: clean catch specimen, cloudy, maurizio colored. jb1 12:37 CT Abd/Pelvis - IV Contrast Only In Process Unspecified. EDMS 12:56 Gena Yang MD is Referral Physician. m 13:19 Patient has correct armband on for positive identification. iw 13:19 No provider procedures requiring assistance completed. IV discontinued, intact, iw bleeding controlled, No redness/swelling at site. Pressure dressing applied. Administered Medications: No medications were administered Outcome: 12:56 Discharge ordered by MD. jmm 13:19 Discharged to home via wheelchair. iw 13:19 Condition: good 13:19 Discharge instructions given to patient, Instructed on discharge instructions, follow up and referral plans. medication usage, Demonstrated understanding of instructions, follow-up care, medications, Prescriptions given X 1. 13:20 Patient left the ED. iw Signatures: Dispatcher [employer] EDMS Chi Hernandez jb1 Blanco Davis, RN RN Artur Treviño PA PA jmm Williams, Irene, GERONIMO RN iw
--- NOTE | 2018-12-31 12:57 | EDPHYS ---
Physician Documentation [facility] Name: Sidra Hodges Age: 43 yrs Sex: Female : 1975 Arrival Date: 12/31/2018 Time: 10:57 Bed 15 Private MD: None, None ED Physician Boris Olivera HPI: 12/31 11:14 This 43 yrs old Female presents to ER via EMS with complaints of Shoulder Pain.jmm 11:14 The patient presents with urinary symptoms, dysuria. Onset: The symptoms/episode jmm began/occurred 1 year(s) ago. Modifying factors: The symptoms are alleviated by nothing, the symptoms are aggravated by nothing. Associated signs and symptoms: Pertinent positives: abdominal pain. This is a 43 year old female with a history of anxiety, bipolar, depression that presents to the ED with complains of ongoing pain to her shoulder from a fall which occurred last week. Patient states this morning she urinated on herself with painful urination for the past year along with lower abdominal pain. Patient denies vomiting or diarrhea. . Historical: - Allergies: 11:00 NKA; sg - PMHx: 11:00 ADD/ADHD; Anxiety; Bipolar disorder; Depression; epilepsy; hemorrhoids; sg - Immunization history:: Adult Immunizations up to date. - Social history:: Smoking status: Patient/guardian denies using tobacco. - Ebola Screening: : Patient negative for fever greater than or equal to 101.5 degrees Fahrenheit, and additional compatible Ebola Virus Disease symptoms Patient denies exposure to infectious person Patient denies travel to an Ebola-affected area in the 21 days before illness onset No symptoms or risks identified at this time. ROS: 11:14 Constitutional: Negative for fever, chills, and weight loss, Cardiovascular: Negative jmm for chest pain, palpitations, and edema, Respiratory: Negative for shortness of breath, cough, wheezing, and pleuritic chest pain. 11:14 Skin: Negative for injury, rash, and discoloration, Neuro: Negative for headache, weakness, numbness, tingling, and seizure, Psych: Negative for depression, anxiety, suicide ideation, homicidal ideation, and hallucinations. 11:14 Abdomen/GI: Positive for abdominal pain. 11:14 MS/extremity: Positive for pain. 11:14 All other systems are negative. Exam: 11:14 Head/Face: atraumatic. Eyes: EOMI, no conjunctival erythema appreciated ENT: Moist [facility] Mucus Membranes Neck: Trachea midline, Supple Chest/axilla: Normal chest wall appearance and motion. Cardiovascular: Regular rate and rhythm. No edema appreciated Respiratory: Normal respirations, no respiratory distress appreciated 11:14 Constitutional: The patient appears in no acute distress, alert, awake. 11:14 Abdomen/GI: Inspection: abdomen appears normal, Bowel sounds: normal, Palpation: soft, moderate abdominal tenderness, in the suprapubic area, right lower quadrant and left lower quadrant. 11:14 Back: ROM is normal. 11:14 Musculoskeletal/extremity: ROM: intact in all extremities. 11:14 Musculoskeletal/extremity: left shoulder pain on palpation, ROM intact, full radial pulse, compartments are soft, NVI. 11:14 Skin: Appearance: Color: normal in color. 11:14 Neuro: Orientation: is normal, Mentation: is normal, Memory: is normal. Vital Signs: 11:02 BP 117 / 74; Pulse 73; Resp 14 S; Temp 98.8; Pulse Ox 98% on R/A; sg 12:45 BP 120 / 70; Pulse 77; Resp 14; Pulse Ox 99% on R/A; sg MDM: 11:14 Patient medically screened. [facility] 12:54 Data reviewed: vital signs, nurses notes. Counseling: I had a detailed discussion with mario the patient and/or guardian regarding: the historical points, exam findings, and any diagnostic results supporting the discharge/admit diagnosis, lab results, radiology results, the need for outpatient follow up, to return to the emergency department if symptoms worsen or persist or if there are any questions or concerns that arise at home. ED course: Labs unremarkable, imaging studies show no acute process to explain lower abdominal pain. Patient is advised to follow up with GI for further evaluation and patient is otherwise given strict return precautions. Patient understood and agrees with the plan of care. . 12/31 11:14 Order name: Basic Metabolic Panel; Complete Time: 12:39 [facility] 12/31 11:14 Order name: CBC with Diff [facility] 12/31 11:14 Order name: Creatinine for Radiology; Complete Time: 12:39 [facility] 12/31 11:14 Order name: Hepatic Function; Complete Time: 12:39 [facility] 12/31 11:14 Order name: Lipase; Complete Time: 12:39 [facility] 12/31 11:25 Order name: Urine Dipstick--Ancillary (enter results) ms 12/31 11:14 Order name: IV Saline Lock; Complete Time: 11:24 [facility] 12/31 11:14 Order name: Labs collected and sent; Complete Time: 11:24 [facility] 12/31 11:14 Order name: CT Abd/Pelvis - IV Contrast Only; Complete Time: 12:54 [facility] 12/31 11:14 Order name: Urine Dipstick-Ancillary (obtain specimen); Complete Time: 11:24 [facility] Administered Medications: No medications were administered Disposition: 01/01 07:23 Co-signature as Attending Physician, Boris Olivera MD I agree with the assessment and kdr plan of care. Disposition: 12/31/18 12:56 Discharged to Home. Impression: Lower abdominal pain, unspecified, Dysuria. - Condition is Stable. - Discharge Instructions: Abdominal Pain, Adult, Dysuria. - Prescriptions for Cephalexin 500 mg Oral Capsule - take 1 capsule by ORAL route every 12 hours for 10 days; 20 capsule. - Medication Reconciliation Form, Thank You Letter, Antibiotic Education, Prescription Opioid Use form. - Follow up: Gena Yang MD; When: 2 - 3 days; Reason: Recheck today's complaints, Continuance of care, Re-evaluation by your physician. Signatures: Dispatcher [employer] Blanco Lane RN RN Boris Olivera MD MD [facility] Artur Watkins PA PA [facility] Laila Foreman RN RN iw Corrections: (The following items were deleted from the chart) 12/31 13:20 12:56 12/31/2018 12:56 Discharged to Home. Impression: Lower abdominal pain, iw unspecified; Dysuria. Condition is Stable. Forms are Medication Reconciliation Form, Thank You Letter, Antibiotic Education, Prescription Opioid Use. Follow up: Gena Yang; When: 2 - 3 days; Reason: Recheck today's complaints, Continuance of care, Re-evaluation by your physician. [facility]
[2018-12-31 13:43] LABS: Urine Blood NEGATIVE (NEG); Urine Glucose NEGATIVE (NEG); Urine Protein NEGATIVE (NEG); Urine pH 5.5 (5.0-7.0)
[2018-12-31 13:44] LABS: Anisocytosis SLIGHT; Blood Morphology Comment NOTED (NOT SEEN); Hypochromasia 1+; Platelet Estimate ADEQ
== END 2018-12-31 13:20 | disposition home or self-care (01) ==
LOC: ER 10:55
DX: R30.0 Dysuria (principal)
CPT/HCPCS: 36415; 74177; 80048; 80076; 81003; 83690; 85025; 99284; Q9967

== ENCOUNTER 2019-01-01 06:54 | Emergency (ER) | payer SELFPAY ==
--- OUTSIDE RECORDS SUMMARY | 2019-01-01 06:56 | XMS REPORT ---
:1975 [facility] Address [address] [place] [address] [address] [place] [address] Care Team Providers Name Role Phone Unavailable Unavailable Unavailable Problems This patient has no known problems. Allergies, Adverse Reactions, Alerts This patient has no known allergies or adverse reactions. Medications This patient has no known medications.
[2019-01-01] MEDS ORDERED: MAGNES/ALUMIN/SIMET 30ML UCUP ONE (07:53)
--- NOTE | 2019-01-01 08:06 | EDPHYS ---
Physician Documentation [facility] Name: Sidra Hodges Age: 43 yrs Sex: Female : 1975 Arrival Date: 01/01/2019 Time: 06:56 Bed 5 Private MD: ED Physician Boris Olivera HPI: 01/01 07:54 This 43 yrs old Female presents to ER via EMS with complaints of Anxiety. snw 07:54 Onset: The symptoms/episode began/occurred at an unknown time. Associated signs and snw symptoms: Pertinent positives: pt states she bit inside of mouth during panic attack. Modifying factors: The patient symptoms are alleviated by nothing. The patient has experienced similar episodes in the past, chronically. pt has been to this facility multiple times this week, + well known to staff. . Labs done yesterday noted, Hgb 9.6, Albumin 2.3. Historical: - Allergies: 07:02 NKA; ea - PMHx: 07:02 hemorrhoids; epilepsy; Depression; Bipolar disorder; Anxiety; ADD/ADHD; ea - PSHx: 07:02 Unable to obtain; ea - Immunization history:: Adult Immunizations up to date. - Social history:: Smoking status: Patient/guardian denies using tobacco. - Ebola Screening: : No symptoms or risks identified at this time. ROS: 07:53 Constitutional: Negative for fever, chills, and weight loss, Eyes: Negative for injury, snw pain, redness, and discharge, Neck: Negative for injury, pain, and swelling, Cardiovascular: Negative for chest pain, palpitations, and edema, Respiratory: Negative for shortness of breath, cough, wheezing, and pleuritic chest pain, Abdomen/GI: Negative for abdominal pain, nausea, vomiting, diarrhea, and constipation, Back: Negative for injury and pain, : Negative for injury, bleeding, discharge, and swelling, MS/Extremity: Negative for injury and deformity, Skin: Negative for injury, rash, and discoloration, Neuro: Negative for headache, weakness, numbness, tingling, and seizure. 07:53 ENT: Positive for bit inside of mouth, painful, bleeding. 07:53 Psych: Positive for panic attacks. Exam: 07:51 Constitutional: This is a well developed, well nourished patient who is awake, alert, snw and in no acute distress. Head/Face: Normocephalic, atraumatic. Eyes: Pupils equal round and reactive to light, extra-ocular motions intact. Lids and lashes normal. Conjunctiva and sclera are non-icteric and not injected. Cornea within normal limits. Periorbital areas with no swelling, redness, or edema. Neck: Trachea midline, no thyromegaly or masses palpated, and no cervical lymphadenopathy. Supple, full range of motion without nuchal rigidity, or vertebral point tenderness. No Meningismus. Chest/axilla: Normal chest wall appearance and motion. Nontender with no deformity. No lesions are appreciated. Cardiovascular: Regular rate and rhythm with a normal S1 and S2. No gallops, murmurs, or rubs. Normal PMI, no JVD. No pulse deficits. Respiratory: Lungs have equal breath sounds bilaterally, clear to auscultation and percussion. No rales, rhonchi or wheezes noted. No increased work of breathing, no retractions or nasal flaring. Abdomen/GI: Soft, non-tender, with normal bowel sounds. No distension or tympany. No guarding or rebound. No evidence of tenderness throughout. Back: No spinal tenderness. No costovertebral tenderness. Full range of motion. Skin: Warm, dry with normal turgor. Normal color with no rashes, no lesions, and no evidence of cellulitis. MS/ Extremity: Pulses equal, no cyanosis. Neurovascular intact. Full, normal range of motion. Neuro: Awake and alert, GCS 15, oriented to person, place, time, and situation. Cranial nerves II-XII grossly intact. Motor strength 5/5 in all extremities. Sensory grossly intact. Cerebellar exam normal. Normal gait. 07:51 ENT: Mouth: Lips: normal, Oral mucosa: normal, Gums: normal with healthy appearance, buccal area to right with tenderness, pt states she bit area and it was bleeding. No active bleeding at present, Voice: is normal. Vital Signs: 06:59 BP 121 / 71; Pulse 77; Resp 18; Temp 97.2; Pulse Ox 100% ; Weight 58.97 kg; Height 5 ea ft. (152.40 cm); 06:59 Body Mass Index 25.39 (58.97 kg, 152.40 cm) ea MDM: 07:01 Patient medically screened. snw 08:07 Data reviewed: vital signs, nurses notes. Data interpreted: Pulse oximetry: on room air snw is 100 %. Counseling: I had a detailed discussion with the patient and/or guardian regarding: the historical points, exam findings, and any diagnostic results supporting the discharge/admit diagnosis, the need for outpatient follow up, to return to the emergency department if symptoms worsen or persist or if there are any questions or concerns that arise at home. Special discussion: Based on the history and exam findings, there is no indication for further emergent testing or inpatient evaluation. I discussed with the patient/guardian the need to see the primary care provider for further evaluation of the symptoms. I discussed with the patient/guardian the need to see the psychiatrist for further evaluation of the symptoms. Administered Medications: 07:46 Drug: Mylanta 200 mg-200 mg-20 mg/5 mL 5 ml Route: PO; sg 08:33 Follow up: Response: No adverse reaction; Marked relief of symptoms sg Disposition: 10:24 Co-signature as Attending Physician, Boris Olivera MD I agree with the assessment and kdr plan of care. Disposition: 01/01/19 08:06 Discharged to Home. Impression: Encounter for screening, unspecified. - Condition is Stable. - Discharge Instructions: Dental Mouthguards, Generalized Anxiety Disorder. - Medication Reconciliation Form, Thank You Letter, Antibiotic Education, Prescription Opioid Use form. - Follow up: Private Physician; When: 1 week; Reason: Recheck today's complaints, Continuance of care, Re-evaluation by your physician. Follow up: Emergency Department; When: As needed; Reason: Worsening of condition. Signatures: Blanco Davis RN RN sg Rittger, Kevin, MD MD [facility] Verito Santos, CLINIC OFFICE ASSISTANT-C CLINIC OFFICE ASSISTANT-Csnw Laila Foreman RN RN iw Antunez, Elena, RN RN ea Corrections: (The following items were deleted from the chart) 08:06 08:06 01/01/2019 08:06 Discharged to Home. Impression: Buccal trauma. Condition is snw Stable. Forms are Medication Reconciliation Form, Thank You Letter, Antibiotic Education, Prescription Opioid Use. Follow up: Private Physician; When: 1 week; Reason: Recheck today's complaints, Continuance of care, Re-evaluation by your physician. Follow up: Emergency Department; When: As needed; Reason: Worsening of condition. gloria 09:40 08:06 01/01/2019 08:06 Discharged to Home. Impression: Encounter for screening, iw unspecified. Condition is Stable. Forms are Medication Reconciliation Form, Thank You Letter, Antibiotic Education, Prescription Opioid Use. Follow up: Private Physician; When: 1 week; Reason: Recheck today's complaints, Continuance of care, Re-evaluation by your physician. Follow up: Emergency Department; When: As needed; Reason: Worsening of condition. gloria
--- NOTE | 2019-01-01 08:06 | ER ---
Nurse's Notes [facility] Name: Sidra Hodges Age: 43 yrs Sex: Female : 1975 Arrival Date: 01/01/2019 Time: 06:56 Bed 5 Private MD: Diagnosis: Encounter for screening, unspecified Presentation: 01/01 06:56 Presenting complaint: EMS states: Reports pt she has anxiety attack and bit the inside ea of her mouth. Transition of care: patient was not received from another setting of care. Onset of symptoms was January 01, 2019. Risk Assessment: Do you want to hurt yourself or someone else? Patient reports no desire to harm self or others. Initial Sepsis Screen: Does the patient meet any 2 criteria? No. Patient's initial sepsis screen is negative. Does the patient have a suspected source of infection? No. Patient's initial sepsis screen is negative. Care prior to arrival: None. 06:56 Method Of Arrival: EMS: [facility] 06:56 Acuity: CARMITA 5 ea Triage Assessment: 07:02 General: Appears in no apparent distress. Behavior is calm, cooperative. Pain: ea Complains of pain in right foot. Historical: - Allergies: 07:02 NKA; ea - PMHx: 07:02 hemorrhoids; epilepsy; Depression; Bipolar disorder; Anxiety; ADD/ADHD; ea - PSHx: 07:02 Unable to obtain; ea - Immunization history:: Adult Immunizations up to date. - Social history:: Smoking status: Patient/guardian denies using tobacco. - Ebola Screening: : No symptoms or risks identified at this time. Screenin:00 Abuse screen: Denies threats or abuse. Nutritional screening: No deficits noted. ea Tuberculosis screening: No symptoms or risk factors identified. Fall Risk None identified. Assessment: 07:03 General: Appears in no apparent distress. Behavior is calm, cooperative. Pain: ea Complains of pain in right foot. Neuro: Level of Consciousness is awake, alert, obeys commands, Oriented to person, place, time. Cardiovascular: Patient's skin is warm and dry. Respiratory: Airway is patent Respiratory effort is even, unlabored, Respiratory pattern is regular, symmetrical. Derm: Skin is pink, warm \T\ dry. 07:20 Reassessment: Patient appears in no apparent distress at this time. No changes from sv previously documented assessment. Patient and/or family updated on plan of care and expected duration. Pain level reassessed. Patient is alert, oriented x 3, equal unlabored respirations, skin warm/dry/pink. Vital Signs: 06:59 BP 121 / 71; Pulse 77; Resp 18; Temp 97.2; Pulse Ox 100% ; Weight 58.97 kg; Height 5 ea ft. (152.40 cm); 06:59 Body Mass Index 25.39 (58.97 kg, 152.40 cm) ea ED Course: 06:56 Patient arrived in ED. ea 06:59 Triage completed. ea 06:59 Arm band placed on right wrist. Patient placed in an exam room, on a stretcher, on ea pulse oximetry. 07:00 Patient has correct armband on for positive identification. Bed in low position. Call ea light in reach. Side rails up X2. 07:01 Verito Santos FNP-C is [facility]. snw 07:01 Boris Olivera MD is Attending Physician. snw 07:24 Samantha Pitts, RN is Primary Nurse. sv 09:40 No provider procedures requiring assistance completed. Patient did not have IV access iw during this emergency room visit. Administered Medications: 07:46 Drug: Mylanta 200 mg-200 mg-20 mg/5 mL 5 ml Route: PO; sg 08:33 Follow up: Response: No adverse reaction; Marked relief of symptoms sg Outcome: 08:06 Discharge ordered by . snw 09:40 Discharged to home via wheelchair. iw 09:40 Condition: good 09:40 Discharge instructions given to patient, Instructed on discharge instructions, follow up and referral plans. safety practices, Demonstrated understanding of instructions, follow-up care. 09:40 Patient left the ED. iw Signatures: Samantha Pitts RN RN sv Gay, Steven, RN RN sg Therrien, Shelly, FNP-C FNP-Laila Ibrahim RN RN iw Antunez, Elena, RN RN ea
== END 2019-01-01 09:40 | disposition home or self-care (01) ==
LOC: ER 06:54
DX: Z13.9 Encounter for screening, unspecified (principal); F31.9 Bipolar disorder, unspecified; F41.0 Panic disorder [episodic paroxysmal anxiety]
CPT/HCPCS: 99283

== ENCOUNTER 2019-01-04 21:52 | Emergency (ER) | payer SELFPAY ==
--- OUTSIDE RECORDS SUMMARY | 2019-01-04 21:54 | XMS REPORT ---
:1975 [facility] Address [address] [place] [address] [address] [place] [address] Care Team Providers Name Role Phone Unavailable Unavailable Unavailable Problems This patient has no known problems. Allergies, Adverse Reactions, Alerts This patient has no known allergies or adverse reactions. Medications This patient has no known medications.
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
--- NOTE | 2019-01-04 23:33 | ER ---
Nurse's Notes [facility] Name: Sidra Hodges Age: 43 yrs Sex: Female : 1975 Arrival Date: 01/04/2019 Time: 21:53 Bed 16 Private MD: Diagnosis: Presentation: 01/04 22:33 Presenting complaint: Patient states: I am very sad and alone at home, I have no help, la1 no resources and I am very lonely, I sometimes think about hurting myself. Pt denies a plan or HI. Transition of care: patient was not received from another setting of care. Onset of symptoms was January 04, 2019. Risk Assessment: Do you want to hurt yourself or someone else? Patient reports desire/thoughts of hurting themselves or someone else. Provider notified. Initial Sepsis Screen: Does the patient meet any 2 criteria? No. Patient's initial sepsis screen is negative. Does the patient have a suspected source of infection? No. Patient's initial sepsis screen is negative. Care prior to arrival: None. 22:33 Method Of Arrival: Ambulatory la1 22:33 Acuity: CARMITA 2 la1 Historical: - Allergies: 22:33 NKA; la1 - PMHx: 22:33 ADD/ADHD; Anxiety; Bipolar disorder; Depression; epilepsy; hemorrhoids; la1 - Immunization history:: Adult Immunizations unknown. - Social history:: Smoking status: unknown. - Ebola Screening: : No symptoms or risks identified at this time. Assessment: 22:50 Reassessment: Pt left prior to assessment and vital signs, reports coming to the [address] because she is homeless and has not where to stay and has a lot of things. Vital Signs: 22:24 BP 119 / 68; Pulse 80; Resp 16; Temp 97.4; Pulse Ox 98% on R/A; la1 ED Course: 21:53 Patient arrived in ED. ds1 22:02 Deon Rojas MD is Attending Physician. ps1 22:33 Arm band placed on left wrist. la1 22:34 Triage completed. la1 22:49 Flo Diaz RN is Primary Nurse. [facility] Administered Medications: No medications were administered Outcome: 23:32 Patient left the ED. aa1 Signatures: Yue Gilbert RN RN aa1 Mae Machado ds1 Chava Ledbetter RN RN la1 Flo Diaz RN RN jb4 Deon Rojas MD MD ps1
== END 2019-01-04 23:32 | disposition left against medical advice (07) ==
LOC: ER 21:52
DX: R45.851 Suicidal ideations (principal)
CPT/HCPCS: 99281

== ENCOUNTER 2019-01-18 09:28 | Emergency (ER) | payer SELFPAY ==
[2019-01-18 10:09] LABS: Absolute Lymphocytes (CBC) 1.9 K/uL (0.7-4.9); Basophils % 0.7 % (0-1.3); Hematocrit 28.9 % (36.0-45.0); Lymphocytes % 32.5 % (15.3-44.8); MPV 9.4 fL (7.6-11.3); RBC Red Blood Cell Count 3.51 M/uL (3.86-4.86)
[2019-01-18] MEDS ORDERED: FAMOTIDINE 20 MG/2 ML VIAL IV ONE (10:10)
[2019-01-18] MEDS ORDERED: NA CHLORIDE 0.9% 1,000 ML ONE (10:11)
[2019-01-18 10:12] LABS: Protime INR 0.96
[2019-01-18 10:27] LABS: ALT/SGPT 20 U/L (12-78); AST/SGOT 19 U/L (15-37); Albumin 2.7 g/dL (3.4-5.0); Alkaline Phosphatase 73 U/L (45-117); BUN Blood Urea Nitrogen 13 mg/dL (7-18); Bicarbonate 25 mmol/L (21-32); Bilirubin Direct < 0.1 mg/dL (0-0.2); Bilirubin Total 0.2 mg/dL (0.2-1.0); Glucose Level 103 mg/dL (74-106); Lipase 198 U/L (73-393); Magnesium 1.7 mg/dL (1.8-2.4); NT PRO-BNP 544 pg/mL (<125); Potassium 3.8 mmol/L (3.5-5.1); Sodium Level 140 mmol/L (136-145); Troponin (Emerg Dept Use Only) < 0.02 ng/mL (0.0-0.045)
[2019-01-18 10:50] LABS: Urine Blood NEGATIVE (NEG); Urine Glucose NEGATIVE (NEG); Urine Protein NEGATIVE (NEG); Urine pH 5.5 (5.0-7.0)
[2019-01-18 10:55] LABS: Barbiturates NEGATIVE (NEGATIVE); Benzodiazepines NEGATIVE (NEGATIVE); Cocaine NEGATIVE (NEGATIVE); METHAMPHETAM NEGATIVE (NEGATIVE); Methadone NEGATIVE (NEGATIVE); Opiates NEGATIVE (NEGATIVE); Phencyclidine NEGATIVE (NEGATIVE); THC Cannibis NEGATIVE (NEGATIVE)
--- NOTE | 2019-01-18 10:56 | ER ---
Nurse's Notes [facility] Name: Sidra Hodges Age: 43 yrs Sex: Female : 1975 Arrival Date: 01/18/2019 Time: 09:29 Bed 6 Private MD: Diagnosis: Abdominal tenderness;Bipolar disorder;Anemia, unspecified;Hypomagnesemia Presentation: 01/18 09:29 Presenting complaint: Patient states: LUQ pain x 2 weeks ago. Pt also reports rectal aa5 bleeding when wiping. Denies nausea/vomiting/diarrhea. 09:29 Transition of care: patient was not received from another setting of care. Onset of aa5 symptoms was December 2018. Risk Assessment: Do you want to hurt yourself or someone else? Patient reports no desire to harm self or others. Initial Sepsis Screen: Does the patient meet any 2 criteria? No. Patient's initial sepsis screen is negative. Does the patient have a suspected source of infection? No. Patient's initial sepsis screen is negative. Care prior to arrival: None. 09:29 Acuity: CARMITA 3 aa5 09:29 Method Of Arrival: Ambulatory aa5 MASSAGE THERAPIST: 09:32 LMP N/A - Post-menopause aa5 Historical: - Allergies: 09:29 NKA; aa5 - Home Meds: 09:48 Tegretol Oral [Active]; Depakote Oral [Active]; oxcarbazepine 300 mg oral tab 2 times aa5 per day [Active]; - PMHx: 09:29 ADD/ADHD; Anxiety; Bipolar disorder; Depression; epilepsy; hemorrhoids; aa5 - Immunization history:: Adult Immunizations unknown. - Social history:: Smoking status: Patient/guardian denies using tobacco. - Ebola Screening: : No symptoms or risks identified at this time. - Family history:: not pertinent. Screenin:35 Abuse screen: Denies threats or abuse. Nutritional screening: No deficits noted. aa5 Tuberculosis screening: No symptoms or risk factors identified. Fall Risk None identified. Assessment: 09:35 General: Appears comfortable, Behavior is calm, cooperative. Pain: Complains of pain in aa5 left upper quadrant Pain does not radiate. Pain currently is 10 out of 10 on a pain scale. Quality of pain is described as sharp, Pain began 2 weeks ago Is continuous. Neuro: Level of Consciousness is awake, alert, obeys commands, Oriented to person, place, time, situation. Cardiovascular: Heart tones S1 S2 present Rhythm is regular. Respiratory: Airway is patent Respiratory effort is even, unlabored, Respiratory pattern is regular, symmetrical, Breath sounds are clear bilaterally. GI: Abdomen is round Bowel sounds present X 4 quads. Abd is soft X 4 quads Abdomen is tender to palpation in left upper quadrant Reports rectal bleeding when wiping Patient currently denies diarrhea, nausea, vomiting. : No signs and/or symptoms were reported regarding the genitourinary system. EENT: No signs and/or symptoms were reported regarding the EENT system. Derm: Skin is pink, warm \T\ dry. Musculoskeletal: Range of motion: intact in all extremities. 10:30 Reassessment: Patient is alert, oriented x 3, equal unlabored respirations, skin aa5 warm/dry/pink. Pt ambulatory to restroom. Pt placed back in bed. Bed in low position, side rails x 2, call sidhu within reach. . 11:03 Reassessment: Pt resting in bed with eyes closed, respirations even and unlabored. Pt aa5 easy to awake by verbal stimuli. Magnesium infusing. . 12:05 Reassessment: Patient is alert, oriented x 3, equal unlabored respirations, skin aa5 warm/dry/pink. 12:05 Pain: Pain currently is 8 out of 10 on a pain scale. aa5 12:45 Reassessment: Patient is alert, oriented x 3, equal unlabored respirations, skin aa5 warm/dry/pink. Vital Signs: 09:32 BP 120 / 76; Pulse 88; Resp 16 S; Temp 97.7(TE); Pulse Ox 100% on R/A; Pain 10/10; aa5 10:30 BP 105 / 77; Pulse 74; Resp 16 S; Pulse Ox 100% on R/A; aa5 11:30 BP 115 / 88; Pulse 72; Resp 16 S; Temp 98.0(TE); Pulse Ox 100% on R/A; aa5 12:30 BP 114 / 76; Pulse 60; Resp 16 S; Pulse Ox 100% on R/A; aa5 ED Course: 09:29 Patient arrived in ED. aa5 09:29 Arm band placed on. aa5 09:29 Patient has correct armband on for positive identification. Placed in gown. Bed in low aa5 position. Call light in reach. Side rails up X2. site monitor on. Pulse ox on. NIBP on. 09:30 Pascual Lundy MD is Attending Physician. ry 09:32 Triage completed. aa5 09:33 Maggy Beasley, RN is Primary Nurse. aa5 09:40 Missed attempt(s): 22 gauge in left antecubital area. Bleeding controlled, band aid sv applied, catheter tip intact. 09:45 Initial lab(s) drawn, by dc, sent to lab. Inserted saline lock: 20 gauge in right sv forearm, using aseptic technique. Blood collected. Flushed right forearm with 5 ml normal saline. 10:13 XRAY Chest (1 view) In Process Unspecified. EDMS 10:30 Urine collected: clean catch specimen, clear, UDS sent to lab. aa5 10:55 Gena Yang MD is Referral Physician. ry 10:56 No provider procedures requiring assistance completed. aa5 12:45 IV discontinued, intact, bleeding controlled, No redness/swelling at site. Pressure aa5 dressing applied. Administered Medications: 09:55 Drug: NS 0.9% 1000 ml Route: IV; Rate: 1 bolus; Site: right forearm; sv 11:03 Follow up: IV Status: Completed infusion; IV Intake: 1000ml aa5 09:55 Drug: Pepcid 20 mg Route: IVP; Site: right forearm; sv 10:10 Follow up: Response: No adverse reaction aa5 11:03 Drug: Magnesium Sulfate 1 grams Route: IVPB; Infused Over: 1 hrs; Site: right forearm; aa5 12:05 Follow up: Response: No adverse reaction; IV Status: Completed infusion aa5 Intake: 11:03 IV: 1000ml; Total: 1000ml. aa5 Outcome: 10:55 Discharge ordered by . ry 12:45 Discharged to home ambulatory. aa5 12:45 Condition: stable 12:45 Discharge instructions given to patient, Instructed on discharge instructions, follow up and referral plans. medication usage, Demonstrated understanding of instructions, follow-up care, medications, Prescriptions given X 3. 12:48 Patient left the ED. aa5 Signatures: Dispatcher [employer] EDSamantha Florence RN RN sv Anderson, Corey, MD MD cha Calderon, Audri, RN RN aa5 Corrections: (The following items were deleted from the chart) 11:07 11:03 Magnesium Sulfate 1 grams IVPB in right antecubital over 1 hrs aa5 aa5
--- NOTE | 2019-01-18 10:57 | EDPHYS ---
Physician Documentation [facility] Name: Sidra Hodges Age: 43 yrs Sex: Female : 1975 Arrival Date: 01/18/2019 Time: 09:29 Bed 6 Private MD: JENELLE Physician Pascual Lundy HPI: 01/18 09:44 This 43 yrs old Female presents to ER via Ambulatory with complaints of ry Abdominal Pain. 09:44 The patient presents with abdominal pain in the epigastric area, in the upper abdomen. ry Onset: The symptoms/episode began/occurred 2 day(s) ago. The symptoms do not radiate. Associated signs and symptoms: none. The symptoms are described as crampy. Modifying factors: The symptoms are alleviated by nothing, the symptoms are aggravated by food. Severity of pain: At its worst the pain was moderate in the emergency department the pain is unchanged. The patient has not experienced similar symptoms in the past. 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 - Social history:: Smoking status: Patient/guardian denies using tobacco. - Ebola Screening: : No symptoms or risks identified at this time. - Family history:: not pertinent. ROS: 09:44 Constitutional: Negative for fever, chills, and weight loss, Eyes: Negative for injury, ry pain, redness, and discharge, ENT: Negative for injury, pain, and discharge, Neck: Negative for injury, pain, and swelling, Cardiovascular: Negative for chest pain, palpitations, and edema, Respiratory: Negative for shortness of breath, cough, wheezing, and pleuritic chest pain, Back: Negative for injury and pain, : Negative for injury, bleeding, discharge, and swelling, MS/Extremity: Negative for injury and deformity, Skin: Negative for injury, rash, and discoloration, Neuro: Negative for headache, weakness, numbness, tingling, and seizure, Psych: Negative for depression, anxiety, suicide ideation, homicidal ideation, and hallucinations, Allergy/Immunology: Negative for hives, rash, and allergies, Endocrine: Negative for neck swelling, polydipsia, polyuria, polyphagia, and marked weight changes, Hematologic/Lymphatic: Negative for swollen nodes, abnormal bleeding, and unusual bruising. 09:44 Abdomen/GI: Positive for abdominal pain, abdominal cramps, of the epigastric area, right upper quadrant and left upper quadrant. Exam: 09:44 Constitutional: This is a well developed, well nourished patient who is awake, alert, ry and in no acute distress. Head/Face: Normocephalic, atraumatic. Eyes: Pupils equal round and reactive to light, extra-ocular motions intact. Lids and lashes normal. Conjunctiva and sclera are non-icteric and not injected. Cornea within normal limits. Periorbital areas with no swelling, redness, or edema. ENT: Nares patent. No nasal discharge, no septal abnormalities noted. Tympanic membranes are normal and external auditory canals are clear. Oropharynx with no redness, swelling, or masses, exudates, or evidence of obstruction, uvula midline. Mucous membranes moist. Neck: Trachea midline, no thyromegaly or masses palpated, and no cervical lymphadenopathy. Supple, full range of motion without nuchal rigidity, or vertebral point tenderness. No Meningismus. Chest/axilla: Normal chest wall appearance and motion. Nontender with no deformity. No lesions are appreciated. Cardiovascular: Regular rate and rhythm with a normal S1 and S2. No gallops, murmurs, or rubs. Normal PMI, no JVD. No pulse deficits. Respiratory: Lungs have equal breath sounds bilaterally, clear to auscultation and percussion. No rales, rhonchi or wheezes noted. No increased work of breathing, no retractions or nasal flaring. Back: No spinal tenderness. No costovertebral tenderness. Full range of motion. Skin: Warm, dry with normal turgor. Normal color with no rashes, no lesions, and no evidence of cellulitis. MS/ Extremity: Pulses equal, no cyanosis. Neurovascular intact. Full, normal range of motion. Neuro: Awake and alert, GCS 15, oriented to person, place, time, and situation. Cranial nerves II-XII grossly intact. Motor strength 5/5 in all extremities. Sensory grossly intact. Cerebellar exam normal. Normal gait. Psych: Awake, alert, with orientation to person, place and time. Behavior, mood, and affect are within normal limits. 09:44 Abdomen/GI: Inspection: abdomen appears normal, Bowel sounds: normal, Palpation: moderate abdominal tenderness, in the epigastric area, right upper quadrant and left upper quadrant, Liver: no appreciated palpable abnormalities, Hernia: not appreciated. Vital Signs: 09:32 BP 120 / 76; Pulse 88; Resp 16 S; Temp 97.7(TE); Pulse Ox 100% on R/A; Pain 10/10; aa5 10:30 BP 105 / 77; Pulse 74; Resp 16 S; Pulse Ox 100% on R/A; aa5 11:30 BP 115 / 88; Pulse 72; Resp 16 S; Temp 98.0(TE); Pulse Ox 100% on R/A; aa5 12:30 BP 114 / 76; Pulse 60; Resp 16 S; Pulse Ox 100% on R/A; aa5 MDM: 09:30 Patient medically screened. [facility] 09:46 Data reviewed: vital signs, nurses notes, lab test result(s), EKG, radiologic studies, ry plain films. 01/18 09:44 Order name: Basic Metabolic Panel; Complete Time: 10:57 [facility] 01/18 09:44 Order name: CBC with Diff; Complete Time: 10:21 [facility] 01/18 09:44 Order name: LFT's; Complete Time: 10:57 [facility] 01/18 09:44 Order name: Magnesium; Complete Time: 10:57 [facility] 01/18 09:44 Order name: NT PRO-BNP; Complete Time: 10:57 [facility] 01/18 09:44 Order name: PT-INR; Complete Time: 10:21 [facility] 01/18 09:44 Order name: Troponin (emerg Dept Use Only); Complete Time: 10:57 [facility] 01/18 09:44 Order name: Lipase; Complete Time: 10:57 [facility] 01/18 09:44 Order name: Acetaminophen; Complete Time: 10:57 [facility] 01/18 09:44 Order name: ETOH Level; Complete Time: 10:21 [facility] 01/18 09:44 Order name: Ptt, Activated; Complete Time: 10:21 [facility] 01/18 09:44 Order name: Salicylate; Complete Time: 10:57 [facility] 01/18 09:44 Order name: Urine Drug Screen 01/18 09:44 Order name: XRAY Chest (1 view) [facility] 01/18 09:44 Order name: EKG; Complete Time: 09:48 [facility] 01/18 09:44 Order name: Cardiac monitoring; Complete Time: 10:21 [facility] 01/18 09:44 Order name: EKG - Nurse/Tech; Complete Time: 10:21 [facility] 01/18 09:44 Order name: IV Saline Lock; Complete Time: 09:50 [facility] 01/18 09:44 Order name: Labs collected and sent; Complete Time: 09:50 [facility] 01/18 09:44 Order name: O2 Per Protocol; Complete Time: 10:21 [facility] 01/18 09:44 Order name: O2 Sat Monitoring; Complete Time: 10:21 [facility] 01/18 10:04 Order name: Carbamazepine (Tegretol) Level; Complete Time: 10:57 EDMS 01/18 10:04 Order name: Valproic Acid (Depakene) Level; Complete Time: 10:57 EDMS 01/18 10:40 Order name: Urine Dipstick--Ancillary (enter results); Complete Time: 10:57 01/18 10:40 Order name: Urine --Ancillary (enter results); Complete Time: 10:57 01/18 09:44 Order name: Urine Dipstick-Ancillary (obtain specimen); Complete Time: 10:56 [facility] 01/18 09:44 Order name: Urine Test (obtain specimen); Complete Time: 10:21 [facility] Administered Medications: 09:55 Drug: NS 0.9% 1000 ml Route: IV; Rate: 1 bolus; Site: right forearm; sv 11:03 Follow up: IV Status: Completed infusion; IV Intake: 1000ml aa5 09:55 Drug: Pepcid 20 mg Route: IVP; Site: right forearm; sv 10:10 Follow up: Response: No adverse reaction aa5 11:03 Drug: Magnesium Sulfate 1 grams Route: IVPB; Infused Over: 1 hrs; Site: right forearm; aa5 12:05 Follow up: Response: No adverse reaction; IV Status: Completed infusion aa5 Disposition: 01/18/19 10:55 Discharged to Home. Impression: Abdominal tenderness, Bipolar disorder, Anemia, unspecified, Hypomagnesemia. - Condition is Stable. - Discharge Instructions: Abdominal Pain, Adult, Anemia, Nonspecific, Hypomagnesemia, Bipolar Disorder, Abdominal Pain, Adult, [id number]. - Prescriptions for Bentyl 20 mg Oral Tablet - take 1 tablet by ORAL route every 6 hours As needed; 20 tablet. Pepcid 20 mg Oral Tablet - take 1 tablet by ORAL route every 12 hours for 10 days; 20 tablet. Vitamin 27- 0.8 mg Oral Tablet - take 1 tablet by ORAL route once daily; 30 tablet. - Medication Reconciliation Form, Thank You Letter, Antibiotic Education, Prescription Opioid Use form. - Follow up: Private Physician; When: 2 - 3 days; Reason: Recheck today's complaints, Continuance of care, Re-evaluation by your physician. Follow up: Gena Yang; When: 2 - 3 days; Reason: Recheck today's complaints, Continuance of care, Re-evaluation by your physician. - Problem is new. - Symptoms have improved. Signatures: Dispatcher [employer] [facility] Samantha Pitts RN RN sv Anderson, Corey, MD MD cha Calderon, Audri, RN RN aa5 Corrections: (The following items were deleted from the chart) 10:03 09:51 CARBAMAZEPINE (TEGRETOL)+C.LAB.BRZ ordered. [facility] EDNH 10:03 09:51 VALPROIC ACID (DEPAKOTE)+C.LAB.BRZ ordered. [facility] EDMS 12:48 10:55 01/18/2019 10:55 Discharged to Home. Impression: Abdominal tenderness; Bipolar aa5 disorder; Anemia, unspecified; Hypomagnesemia. Condition is Stable. Discharge Instructions: Abdominal Pain, Adult, Bipolar Disorder, Abdominal Pain, Adult, [id number], Anemia, Nonspecific. Prescriptions for Bentyl 20 mg Oral Tablet - take 1 tablet by ORAL route every 6 hours As needed; 20 tablet, Pepcid 20 mg Oral Tablet - take 1 tablet by ORAL route every 12 hours for 10 days; 20 tablet, Vitamin 27-0.8 mg Oral Tablet - take 1 tablet by ORAL route once daily; 30 tablet. and Forms are Medication Reconciliation Form, Thank You Letter, Antibiotic Education, Prescription Opioid Use. Follow up: Private Physician; When: 2 - 3 days; Reason: Recheck today's complaints, Continuance of care, Re-evaluation by your physician. Follow up: Gena Yang; When: 2 - 3 days; Reason: Recheck today's complaints, Continuance of care, Re-evaluation by your physician. Problem is new. Symptoms have improved. ry
--- NOTE | 2019-01-18 11:06 | RAD REPORT ---
EXAM DESCRIPTION: RAD - Chest Single View - 01/18/2019 10:13 am CLINICAL HISTORY: Upper abdominal pain COMPARISON: December 08 TECHNIQUE: AP portable chest image was obtained 1011 hours . FINDINGS: Lungs are clear. Lung volumes are low Heart and vasculature are normal. No measurable pleu ral effusion and no pneumothorax. No acute bony abnormality seen. No acute aortic findings suspected. IMPRESSION: No acute cardiopulmonary process. No significant interval change
[2019-01-18] MEDS ORDERED: MAGNESIUM SULFATE 1 gm IVPB 1 GM/100 ML BAG IV ONE (11:18)
--- NOTE | 2019-01-19 07:41 | EKG ---
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
== END 2019-01-18 12:48 | disposition home or self-care (01) ==
LOC: ER 09:28
DX: D64.9 Anemia, unspecified (principal); E83.42 Hypomagnesemia; F31.9 Bipolar disorder, unspecified; F32.9 Major depressive disorder, single episode, unspecified; G40.909 Epilepsy, unspecified, not intractable, without status epilepticus
CPT/HCPCS: 36415; 71045; 80048; 80076; 80156; 80164; 80307; 80320; 80329; 81003; 81025; 83690; 83735; 83880; 84484; 85025; 85610; 85730; 93005; 96361; 96365; 96375; 99284; J3475; J7030

== ENCOUNTER 2019-01-21 12:37 | Emergency (ER) | payer SELFPAY ==
--- OUTSIDE RECORDS SUMMARY | 2019-01-21 12:39 | XMS REPORT ---
:1975 [facility] Address [address] [place] [address] Care Team Providers Name Role Phone Unavailable Unavailable Unavailable Problems This patient has no known problems. Allergies, Adverse Reactions, Alerts This patient has no known allergies or adverse reactions. Medications This patient has no known medications. Results Test Description Test Time Test Comments Text Results Atomic Results Result Comments Valproic Acid Level 2019-01-12 08:03:22 Test Item Value Reference Range Comments Valproic Acid Level (test code=Valproic Acid Level) 57.6 ug/mL(g) 50.0-100.0 Hemoglobin [id number] 09:36:00 Test Item Value Reference Range Comments Hemoglobin A1c (test 5.0 % 4.8-5.9 Non Diabetic 4.8-5.9%Diabetic code=Hemoglobin A1c) <7.0% CT Shoulder w/o Contrast [id number] 16:49:13Patient: BHUMIKA JONES Date/Time01/09/2019 16:14 CDTReason for ExamInjuryReportCT Shoulder w/o Contrast LeftCLINICAL INFORMATION : InjuryCOMPARISON: Left shoulder series dated January 07, 2019TECHNIQUE: Helical CT imaging of the left shoulder wasperformed without intravenous or intra- articular contrast. Coronal and sagittal reformats were provided. One or more of the following dose reduction techniques were used: Automated exposure control , adjustment of the mA and/or kV according to patient size, and/or utilization of iterative reconstruction technique.FINDINGS:No acute fracture or malalignment is identified. The glenohumeral, acromioclavicular, and coracoclavicular joint spaces remain well aligned. Calcifications are seen in the supraspinatus tendon. No bony erosions are identified.The left ribs are intact. Patchy opacities are incidentally noted in the medial right lung base.IMPRESSION:1. No acute fracture or malalignment.2. Calcifications are seen in the supraspinatus tendon. Correlate for possible calcific tendinopathy.3. Mild airspace disease in the right lower lobe.LOCATION: R16 * Final Dictated by: MD Frank Adam FDictated DT/TM: 01/09/2019 4:43 pmSigned by: MD Frank Adam FSigned (Electronic Signature): 01/09/2019 4: 49 pmRPR [id number] 21:33:20 Test Item Value Reference Range Comments RPR Qual (test code=RPR Qual) Non-Reactive Non-Reactive Reactive Control (test code=Reactive Control) Reactive Weak Reactive Control (test code=Weak Reactive Weak Reactive Control) Non-Reactive Control (test code=Non-Reactive Non-Reactive Control) Lot # (test code=Lot #) [id number] Expiration Dt (test code=Expiration Dt) 04-23-2020 XR Shoulder Complete 2+ Views [id number] 15:41:25Patient: BHUMIKA JONES Date/Time2018 15:25 CDTReason for Examleft shoulder pain;Pain (please specify) ReportDictation location R 16Left shoulder 3 viewsHISTORY: PainCOMMENT:Frontal radiographs of patient's left shoulder were obtained. Thehumerus was in internal and external rotation.The examination demonstrates no radiographic evidence for acute or destructive bony change. The glenohumeral joint space is unremarkable. The AC joint is slightly narrowed. There are multiple radiopacities adjacent to the greater tuberosity suggestive of rotator cuff tendinopathy.IMPRESSION:1. No acute findings of the left shoulder.2. Findings suggestiveof rotator cuff tendinopathy. Final Dictated by: MD Bobby Phebe CDictated DT/TM: 01/07/2019 3:39 pmSigned by: MD Bobby Phebe CSigned ( Electronic Signature): 01/07/2019 3:41 pmThyroid Stimulating [id number] 03:07:04 Test Item Value Reference Range Comments TSH (test code=TSH) 9.650 mIU/mL 0.270-4.200 Lipid [id number] 03:07:03 Test Item Value Reference Range Comments Cholesterol Total (test 199 mg/dL 0-200 RISK OF HEART DISEASEPublished code=Cholesterol Total) by [place] [employer] Analyte Optimal Borderline Increased RiskCHOL <200 200-239 >240TRIG <150 150-199 >200HDL Male >60 <40HDL Female >60 <50LDL <100 130-159 >160LDL Near optimal is 100-129 Triglycerides (test 86 mg/dL 9-200 code=Triglycerides) HDL (test code=HDL) 72 mg/dL 50-60 LDL (test code=LDL) 110 mg/dL 0-130 The equation being used in this calculation is LDL=(Chol - HDL) - (Trig / 5) VLDL (test code=VLDL) 17 mg/dL 5-40 The equation being used in this calculation is VLDL=Trig / 5 Chol/HDL (test 2.8 ratio 0.0-4.4 code=Chol/HDL) LDL/HDL Ratio (test 2 The equation being used in this code=LDL/HDL Ratio) calculation is LDL/HDL Ratio=LDL Calc/HDL Chol HCG Qualitative [id number] 02:33:13 Test Item Value Reference Range Comments HCG, Serum Qual (test code=HCG, Serum Qual) Negative Lot # (test code=Lot #) [id number] Expiration Dt (test code=Expiration Dt) 2020-04-23 Neg Control (test code=Neg Control) Negative Pos Control (test code=Pos Control) Positive Internal QC (test code=Internal QC) Acceptable Drugs of Abuse Urine [id number] 18:58:11 Test Item Value Reference Range Comments Amphetamine Screen Ur (test Negative Negative For diagnostic purposes code=Amphetamine Screen Ur) only. Positive results should always be assessed in conjunction with a patient's medical history. Barbiturate Screen Ur (test Negative Negative code=Barbiturate Screen Ur) Benzodiazepines Ur (test Negative Negative code=Benzodiazepines Ur) Cocaine Screen Ur (test Negative Negative code=Cocaine Screen Ur) U Methadone (test code=U Negative Negative Methadone) Opiate Screen Ur (test Negative Negative code=Opiate Screen Ur) U PCP Scrn (test code=U PCP Negative Negative Scrn) U Propoxyphene (test code=U Negative Negative Propoxyphene) Cannabinoid Screen Ur (test Negative Negative code=Cannabinoid Screen Ur) Alcohol [id number] 18:47:34 Test Item Value Reference Range Comments Ethanol Level (test <0.00 g/dL 0.00-0.01 Intoxicated 0.080 g/dL or more code=Ethanol Level) Ethanol Inst (test <0 code=Ethanol Inst) Comprehensive Metabolic [id number] 18:47:33 Test Item Value Reference Range Comments Sodium Level (test code=Sodium Level) 142.0 mmol/L 135.0-145.0 Potassium Level (test code=Potassium Level) 4.5 mmol/L 3.5-5.1 Chloride Level (test code=Chloride Level) 105 mmol/L 98-105 CO2 (test code=CO2) 26 mmol/L 22-29 Anion Gap (test code=Anion Gap) 11 mmol/L 7-16 BUN (test code=BUN) 12.20 mg/dL 6.00-20.00 Creatinine Level (test code=Creatinine Level) 0.50 mg/dL 0.50-0.90 BUN/Creat Ratio (test code=BUN/Creat Ratio) 24 Glucose Level (test code=Glucose Level) 81 mg/dL 70-115 Calcium Level (test code=Calcium Level) 9.3 mg/dL 8.3-10.5 Alk Phos (test code=Alk Phos) 59 U/L 35-104 Bilirubin Total (test code=Bilirubin Total) 0.2 mg/dL 0.1-0.9 Albumin Level (test code=Albumin Level) 3.6 g/dL 3.5-5.2 Protein Total (test code=Protein Total) 7.3 g/dL 6.4-8.3 ALT (test code=ALT) 11 U/L 1-33 AST (test code=AST) 21 U/L 1-32 Globulin (test code=Globulin) 3.7 g/dL 2.9-3.1 A/G Ratio (test code=A/G Ratio) 1.0 ratio Comprehensive Metabolic [id number] 18:47:33 Test Item Value Reference Range Comments Sodium Level (test 142.0 mmol/L 135.0-145.0 code=Sodium Level) Potassium Level (test 4.5 mmol/L 3.5-5.1 code=Potassium Level) Chloride Level (test 105 mmol/L 98-105 code=Chloride Level) CO2 (test code=CO2) 26 mmol/L 22-29 Anion Gap (test 11 mmol/L 7-16 code=Anion Gap) BUN (test code=BUN) 12.20 mg/dL 6.00-20.00 Creatinine Level (test 0.50 mg/dL 0.50-0.90 code=Creatinine Level) BUN/Creat Ratio (test 24 code=BUN/Creat Ratio) Glucose Level (test 81 mg/dL 70-115 code=Glucose Level) Calcium Level (test 9.3 mg/dL 8.3-10.5 code=Calcium Level) Alk Phos (test code=Alk 59 U/L 35-104 Phos) Bilirubin Total (test 0.2 mg/dL 0.1-0.9 code=Bilirubin Total) Albumin Level (test 3.6 g/dL 3.5-5.2 code=Albumin Level) Protein Total (test 7.3 g/dL 6.4-8.3 code=Protein Total) ALT (test code=ALT) 11 U/L 1-33 AST (test code=AST) 21 U/L 1-32 Globulin (test 3.7 g/dL 2.9-3.1 code=Globulin) A/G Ratio (test code=A/G 1.0 ratio Ratio) eGFR AA (test code=eGFR >60 mL/min/1.73 m2 eGFR (estimated AA) Glomerular Filtration Rate) is an estimated value, calculated from the patient's serum creatinine using the MDRD equation. It is NOT the patient's actual GFR. The eGFR provides a more clinically useful measure of kidney disease than serum creatinine alone.This calculation takes sex and race into account, if the information is provided. If the race is not provided, and the patient is -[place], multiply by 1.212. If sex is not provided, and the patient is female, multiply by 0.742. Results for patients <18 years of age have not been validated by the MDRD study and should be interpreted with caution. eGFR Result Interpretation:eGFR > or=60 is in the Normal RangeeGFR < 60 may mean kidney diseaseeGFR < 15 may mean kidney failure Ranges recommended by the National Kidney Foundation, http://nkdep.nih.gov Comprehensive Metabolic [id number] 18:47:33 Test Item Value Reference Range Comments Sodium Level (test 142.0 mmol/L 135.0-145.0 code=Sodium Level) Potassium Level (test 4.5 mmol/L 3.5-5.1 code=Potassium Level) Chloride Level (test 105 mmol/L 98-105 code=Chloride Level) CO2 (test code=CO2) 26 mmol/L 22-29 Anion Gap (test 11 mmol/L 7-16 code=Anion Gap) BUN (test code=BUN) 12.20 mg/dL 6.00-20.00 Creatinine Level (test 0.50 mg/dL 0.50-0.90 code=Creatinine Level) BUN/Creat Ratio (test 24 code=BUN/Creat Ratio) Glucose Level (test 81 mg/dL 70-115 code=Glucose Level) Calcium Level (test 9.3 mg/dL 8.3-10.5 code=Calcium Level) Alk Phos (test code=Alk 59 U/L 35-104 Phos) Bilirubin Total (test 0.2 mg/dL 0.1-0.9 code=Bilirubin Total) Albumin Level (test 3.6 g/dL 3.5-5.2 code=Albumin Level) Protein Total (test 7.3 g/dL 6.4-8.3 code=Protein Total) ALT (test code=ALT) 11 U/L 1-33 AST (test code=AST) 21 U/L 1-32 Globulin (test 3.7 g/dL 2.9-3.1 code=Globulin) A/G Ratio (test code=A/G 1.0 ratio Ratio) eGFR AA (test code=eGFR >60 mL/min/1.73 m2 eGFR (estimated AA) Glomerular Filtration Rate) is an estimated value, calculated from the patient's serum creatinine using the MDRD equation. It is NOT the patient's actual GFR. The eGFR provides a more clinically useful measure of kidney disease than serum creatinine alone.This calculation takes sex and race into account, if the information is provided. If the race is not provided, and the patient is -[place], multiply by 1.212. If sex is not provided, and the patient is female, multiply by 0.742. Results for patients <18 years of age have not been validated by the MDRD study and should be interpreted with caution. eGFR Result Interpretation:eGFR > or=60 is in the Normal RangeeGFR < 60 may mean kidney diseaseeGFR < 15 may mean kidney failure Ranges recommended by the National Kidney Foundation, http://nkdep.nih.gov eGFR Non-AA (test >60.00 mL/min/1.73 eGFR (estimated code=eGFR Non-AA) m2 Glomerular Filtration Rate) is an estimated value, calculated from the patient's serum creatinine using the MDRD equation. It is NOT the patient's actual GFR. The eGFR provides a more clinically useful measure of kidney disease than serum creatinine alone.This calculation takes sex and race into account, if the information is provided. If the race is not provided, and the patient is -[place], multiply by 1.212. If sex is not provided, and the patient is female, multiply by 0.742. Results for patients <18 years of age have not been validated by the MDRD study and should be interpreted with caution. eGFR Result Interpretation:eGFR > or=60 is in the Normal RangeeGFR < 60 may mean kidney diseaseeGFR < 15 may mean kidney failure Ranges recommended by the National Kidney Foundation, http://nkdep.nih.gov Complete Blood Count with [id number] 18:15:23 Test Item Value Reference Range Comments WBC (test code=WBC) 5.2 x10 4.4-10.5 RBC (test code=RBC) 3.74 x10 3.75-5.20 Hgb (test code=Hgb) 9.9 g/dL 12.2-14.8 MCV (test code=MCV) 83.70 fL 80.00-100.00 Hct (test code=Hct) 31.3 % 36.5-44.4 MCHC (test code=MCHC) 31.60 g/dL 32.00-37.50 MCH (test code=MCH) 26.5 pg 27.0-32.5 RDW CV (test code=RDW CV) 17.8 % 11.5-14.5 Platelets (test 157.0 x10 140.0-440.0 code=Platelets) MPV (test code=MPV) 11.3 fL Slide Review (test code=Slide Auto Auto Result created by Review) [id number]_[id number]_AUTO nRBC (test code=nRBC) 0 NRBC Abs (test code=NRBC Abs) 0.00 x10 IPF (test code=IPF) 0 % Automated [id number] 18:15:23 Test Item Value Reference Range Comments Neutro Auto (test code=Neutro Auto) 42.1 % 36.0-70.0 Lymph Auto (test code=Lymph Auto) 40.0 % 12.0-44.0 [place] Auto (test code=[place] Auto) 12.2 % 0.0-11.0 Eos, Auto (test code=Eos, Auto) 4.9 % 0.0-7.0 Basophil Auto (test code=Basophil Auto) 0.6 % 0.0-2.0 Neutro Absolute (test code=Neutro Absolute) 2.2 x10 1.6-7.4 Lymph Absolute (test code=Lymph Absolute) 2.06 x10 .50-4.60 [place] Absolute (test code=[place] Absolute) .63 x10 .00-1.20 Eos Absolute (test code=Eos Absolute) 0.25 x10 0.00-0.74 Baso Absolute (test code=Baso Absolute) 0.03 x10 0.00-0.21 IG [id number] 18:15:23 Test Item Value Reference Range Comments IG (test code=IG) 0.2 % 0.0-5.0 IG Abs (test code=IG Abs) 0 x10
--- NOTE | 2019-01-21 13:55 | RAD REPORT ---
EXAM DESCRIPTION: Kristy Cleveland (2 Views)01/21/2019 1:45 pm CLINICAL HISTORY: Chest pain COMPARISON: January 18 2019 FINDINGS: The lungs appear clear of acute infiltrate. The heart is normal size IMPRESSION: No acute abnormalities displayed
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
--- NOTE | 2019-01-21 15:28 | EKG ---
Test Date: 2019-01-21 Test Time: 13:47:03 Rn Ostomy: SNOW MEASUREMENT RESULTS: Intervals: Rate: 57 OH: 156 QRSD: 82 QT: 328 QTc: 319 [place]: P: 35 OH: 156 QRS: 56 T: 56 INTERPRETIVE STATEMENTS: Sinus bradycardia Nonspecific T wave abnormality Abnormal ECG Compared to ECG 01/18/2019 10:35:19 Sinus rhythm no longer present T-wave abnormality still present Electronically Signed On 01-21-19 15:27:26 CDT by Flo Purvis
== END 2019-01-21 15:21 | disposition home or self-care (01) ==
LOC: ER 12:37
DX: S20.219A Contusion of unspecified front wall of thorax, initial encounter (principal); Y09 Assault by unspecified means; F90.9 Attention-deficit hyperactivity disorder, unspecified type; F41.9 Anxiety disorder, unspecified; F31.9 Bipolar disorder, unspecified; F32.9 Major depressive disorder, single episode, unspecified
CPT/HCPCS: 71046; 93005

== ENCOUNTER 2019-01-22 10:04 | Emergency (ER) | payer SELFPAY ==
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
--- OUTSIDE RECORDS SUMMARY | 2019-01-22 10:07 | XMS REPORT ---
:1975 [facility] Address [address] [place] [address] Care Team Providers Name Role Phone Unavailable [...] code=Valproic Acid Level) 57.6 ug/mL(g) 50.0-100.0 Hemoglobin [id number] 09:36:00 Test Item Value Reference Range Comments Hemoglobin A1c (test 5.0 % 4.8-5.9 Non Diabetic 4.8-5.9%Diabetic code=Hemoglobin A1c) <7.0% CT Shoulder w/o Contrast [id number] 16:49:13Patient: BHUMIKA JONES Date/Time01/09/2019 16:14 CDTReason for [...] FSigned (Electronic Signature): 01/09/2019 4: 49 pmRPR [id number] 21:33:20 Test Item Value Reference Range Comments RPR Qual (test code=RPR Qual) Non-Reactive Non-Reactive Reactive Control (test code=Reactive Control) Reactive Weak Reactive Control (test code=Weak Reactive Weak Reactive Control) Non-Reactive Control (test code=Non-Reactive Non-Reactive Control) Lot # (test code=Lot #) [id number] Expiration Dt (test code=Expiration Dt) 04-23-2020 XR Shoulder Complete 2+ Views [id number] 15:41:25Patient: BHUMIKA JONES Date/Time2018 15:25 CDTReason for [...] ( Electronic Signature): 01/07/2019 3:41 pmThyroid Stimulating [id number] 03:07:04 Test Item Value Reference Range Comments TSH (test code=TSH) 9.650 mIU/mL 0.270-4.200 Lipid [id number] 03:07:03 Test Item Value Reference Range Comments Cholesterol Total (test 199 mg/dL 0-200 RISK OF HEART DISEASEPublished code=Cholesterol Total) by [place] [employer] Analyte Optimal Borderline Increased RiskCHOL [...] is LDL/HDL Ratio=LDL Calc/HDL Chol HCG Qualitative [id number] 02:33:13 Test Item Value Reference Range Comments HCG, Serum Qual (test code=HCG, Serum Qual) Negative Lot # (test code=Lot #) [id number] Expiration Dt (test code=Expiration Dt) 2020-04-23 Neg Control (test code=Neg Control) Negative Pos Control (test code=Pos Control) Positive Internal QC (test code=Internal QC) Acceptable Drugs of Abuse Urine [id number] 18:58:11 Test Item Value Reference Range Comments [...] (test Negative Negative code=Cannabinoid Screen Ur) Alcohol [id number] 18:47:34 Test Item Value Reference Range Comments Ethanol Level (test <0.00 g/dL 0.00-0.01 Intoxicated 0.080 g/dL or more code=Ethanol Level) Ethanol Inst (test <0 code=Ethanol Inst) Comprehensive Metabolic [id number] 18:47:33 Test Item Value Reference Range Comments [...] (test code=A/G Ratio) 1.0 ratio Comprehensive Metabolic [id number] 18:47:33 Test Item Value Reference Range Comments [...] is not provided, and the patient is -[place], multiply by 1.212. If sex is not [...] the National Kidney Foundation, http://nkdep.nih.gov Comprehensive Metabolic [id number] 18:47:33 Test Item Value Reference Range Comments [...] is not provided, and the patient is -[place], multiply by 1.212. If sex is not [...] is not provided, and the patient is -[place], multiply by 1.212. If sex is not [...] Kidney Foundation, http://nkdep.nih.gov Complete Blood Count with [id number] 18:15:23 Test Item Value Reference Range Comments [...] x10 IPF (test code=IPF) 0 % Automated [id number] 18:15:23 Test Item Value Reference Range Comments Neutro Auto (test code=Neutro Auto) 42.1 % 36.0-70.0 Lymph Auto (test code=Lymph Auto) 40.0 % 12.0-44.0 Knott Auto (test code=Knott Auto) 12.2 % 0.0-11.0 Eos, Auto (test code=Eos, Auto) 4.9 % 0.0-7.0 Basophil Auto (test code=Basophil Auto) 0.6 % 0.0-2.0 Neutro Absolute (test code=Neutro Absolute) 2.2 x10 1.6-7.4 Lymph Absolute (test code=Lymph Absolute) 2.06 x10 .50-4.60 Knott Absolute (test code=Knott Absolute) .63 x10 .00-1.20 Eos Absolute (test code=Eos Absolute) 0.25 x10 0.00-0.74 Baso Absolute (test code=Baso Absolute) 0.03 x10 0.00-0.21 IG [id number] 18:15:23 Test Item Value Reference Range Comments IG (test code=IG) 0.2 % 0.0-5.0 IG Abs (test code=IG Abs) 0 x10
[2019-01-22 12:24] LABS: Urine Blood NEGATIVE (NEG); Urine Glucose NEGATIVE (NEG); Urine Protein NEGATIVE (NEG); Urine Specific Gravity 1.025 (1.005-1.030)
[2019-01-22 12:55] LABS: Absolute Lymphocytes (CBC) 1.7 K/uL (0.7-4.9); Basophils % 0.6 % (0-1.3); Hematocrit 31.4 % (36.0-45.0); Lymphocytes % 32.8 % (15.3-44.8); MPV 9.4 fL (7.6-11.3); RBC Red Blood Cell Count 3.76 M/uL (3.86-4.86)
[2019-01-22 12:59] LABS: ALT/SGPT 15 U/L (12-78); AST/SGOT 11 U/L (15-37); Albumin 2.8 g/dL (3.4-5.0); Alkaline Phosphatase 78 U/L (45-117); BUN Blood Urea Nitrogen 15 mg/dL (7-18); Bicarbonate 28 mmol/L (21-32); Bilirubin Direct < 0.1 mg/dL (0-0.2); Glucose Level 85 mg/dL (74-106); Lipase 93 U/L (73-393); Potassium 4.3 mmol/L (3.5-5.1); Protein, Total 7.4 g/dL (6.4-8.2); Sodium Level 138 mmol/L (136-145)
--- NOTE | 2019-01-22 12:59 | RAD REPORT ---
EXAM DESCRIPTION: CT - Abdomen Pelvis W Contrast - 01/22/2019 12:44 pm CLINICAL HISTORY: Abdominal pain/left-sided abdominal pain COMPARISON: December 31, 2018 TECHNIQUE: Computed axial tomography of the abdomen pelvis was obtained. 100 cc Isovue-300 was admin istered intravenously. Oral contrast was not requested which limits evaluation of bowel. All CT scans are performed using dose optimization technique as appropriate and may include automated exposure control or mA/KV adjustment according to patient size. FINDINGS: Cholelithiasis. Contracted gallbladder. The liver, spleen, pancreas, adrenal and left kidney appear unremarkable. Small right renal cyst There is no evidence of diverticulitis. Mild ground-glass opacities right lower lobe IMPRESSION: Cholelithiasis. Contracted gallbladder Mild ground-glass opacities right lower lobe indicative of a mild alveolitis 1
[2019-01-22 13:00] LABS: Bilirubin Total < 0.1 mg/dL (0.2-1.0)
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
--- NOTE | 2019-01-22 14:33 | ER ---
Nurse's Notes [facility] Name: Sidra Hodges Age: 43 yrs Sex: Female : 1975 Arrival Date: 01/22/2019 Time: 10:04 Bed 28 Private MD: Diagnosis: Other abdominal pain Presentation: 01/22 10:30 Presenting complaint: Patient states: LUQ pain and chills since this morning. Denies aa5 nausea/vomiting/diarrhea. Transition of care: patient was not received from another setting of care. Onset of symptoms was January 22, 2019. Risk Assessment: Do you want to hurt yourself or someone else? Patient reports no desire to harm self or others. Initial Sepsis Screen: Does the patient meet any 2 criteria? No. Patient's initial sepsis screen is negative. Does the patient have a suspected source of infection? No. Patient's initial sepsis screen is negative. Care prior to arrival: None. 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 - Social history:: Smoking status: Patient/guardian denies using tobacco. - Ebola Screening: : No symptoms or risks identified at this time. Screenin:29 Abuse screen: Denies threats or abuse. Denies injuries from another. Nutritional mg2 screening: No deficits noted. Tuberculosis screening: No symptoms or risk factors identified. Fall Risk IV access (20 points). Assessment: 12:28 General: Appears in no apparent distress. comfortable, Behavior is calm, cooperative. mg2 Pain: Complains of pain in LUQ Pain does not radiate. Quality of pain is described as aching, Pain began gradually, Is intermittent. Neuro: Level of Consciousness is awake, alert, obeys commands, Oriented to person, place, time, situation. Cardiovascular: Capillary refill < 3 seconds Patient's skin is warm and dry. Respiratory: Airway is patent Respiratory effort is even, unlabored, Respiratory pattern is regular, symmetrical. GI: Bowel sounds present X 4 quads. Abd is soft and non tender. : No signs and/or symptoms were reported regarding the genitourinary system. Urine is clear. EENT: No signs and/or symptoms were reported regarding the EENT system. Derm: Skin is intact, is healthy with good turgor, Skin is pink, warm \T\ dry. normal. Musculoskeletal: Circulation, motion, and sensation intact. Capillary refill < 3 seconds. 12:45 Reassessment: patient sent to ct scan via stretcher. mg2 12:59 Reassessment: patient came back from ct scan. mg2 Vital Signs: 10:34 BP 116 / 72; Pulse 67; Resp 16 S; Temp 98.0(TE); Pulse Ox 100% on R/A; Weight 81.65 kg aa5 (R); Pain 10/10; 13:00 BP 127 / 79; Pulse 70; Resp 18; Pulse Ox 100% on R/A; mg2 ED Course: 10:04 Patient arrived in ED. as 10:30 Arm band placed on. aa5 10:32 Triage completed. aa5 12:05 Kojo Sarmiento, GERONIMO is Primary Nurse. mg2 12:15 Artur Watkins PA is PHCP. [facility] 12:15 Boris Olivera MD is Attending Physician. jmm 12:29 No provider procedures requiring assistance completed. Inserted saline lock: 22 gauge mg2 in right forearm, using aseptic technique. Blood collected. 12:30 Patient has correct armband on for positive identification. mg2 12:46 CT Abd/Pelvis - IV Contrast Only In Process Unspecified. EDMS 14:51 IV discontinued, intact, bleeding controlled, No redness/swelling at site. Pressure mg2 dressing applied. Administered Medications: No medications were administered Outcome: 14:33 Discharge ordered by . m 14:51 Patient left the ED. ss 14:52 Discharged to home ambulatory. mg2 14:52 Condition: stable 14:52 Discharge instructions given to patient, Instructed on discharge instructions, follow up and referral plans. Demonstrated understanding of instructions, follow-up care. Signatures: Dispatcher [employer] EDMS Artur Watkins PA PA jmm Chris, Jessica as Beasley, Maggy, RN RN aa5 Samantha Du RN RN ss Kojo Sarmiento RN RN mg2 Corrections: (The following items were deleted from the chart) 10:32 10:30 Method Of Arrival: Ambulatory aa5 aa5
== END 2019-01-22 14:51 | disposition home or self-care (01) ==
LOC: ER 10:04
DX: R10.12 Left upper quadrant pain (principal); F90.9 Attention-deficit hyperactivity disorder, unspecified type; F31.9 Bipolar disorder, unspecified; F32.9 Major depressive disorder, single episode, unspecified; F41.9 Anxiety disorder, unspecified
CPT/HCPCS: 36415; 74177; 80048; 80076; 81003; 83690; 85025; 99284; Q9967

== ENCOUNTER 2019-01-27 09:31 | Emergency (ER) | payer SELFPAY ==
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
[2019-01-27] MEDS ORDERED: IBUPROFEN 400 MG TAB ONE (09:58)
[2019-01-27] MEDS ORDERED: IBUPROFEN 200 MG TAB PO ONE (09:59)
== END 2019-01-27 10:01 | disposition home or self-care (01) ==
LOC: ER 09:31
DX: M62.830 Muscle spasm of back (principal); F90.9 Attention-deficit hyperactivity disorder, unspecified type; F41.9 Anxiety disorder, unspecified; F31.9 Bipolar disorder, unspecified
CPT/HCPCS: 99284

== ENCOUNTER 2019-01-29 11:18 | Emergency (ER) | payer SELFPAY ==
--- OUTSIDE RECORDS SUMMARY | 2019-01-29 11:23 | XMS REPORT ---
:1975 [facility] Address [address] [place] [address] Care Team Providers Name Role Phone Unavailable [...] code=Valproic Acid Level) 57.6 ug/mL(g) 50.0-100.0 Hemoglobin [id number] 09:36:00 Test Item Value Reference Range Comments Hemoglobin A1c (test 5.0 % 4.8-5.9 Non Diabetic 4.8-5.9%Diabetic code=Hemoglobin A1c) <7.0% CT Shoulder w/o Contrast [id number] 16:49:13Patient: BHUMIKA JONES Date/Time01/09/2019 16:14 CDTReason for [...] FSigned (Electronic Signature): 01/09/2019 4: 49 pmRPR [id number] 21:33:20 Test Item Value Reference Range Comments RPR Qual (test code=RPR Qual) Non-Reactive Non-Reactive Reactive Control (test code=Reactive Control) Reactive Weak Reactive Control (test code=Weak Reactive Weak Reactive Control) Non-Reactive Control (test code=Non-Reactive Non-Reactive Control) Lot # (test code=Lot #) [id number] Expiration Dt (test code=Expiration Dt) 04-23-2020 XR Shoulder Complete 2+ Views [id number] 15:41:25Patient: BHUMIKA JONES Date/Time2018 15:25 CDTReason for [...] ( Electronic Signature): 01/07/2019 3:41 pmThyroid Stimulating [id number] 03:07:04 Test Item Value Reference Range Comments TSH (test code=TSH) 9.650 mIU/mL 0.270-4.200 Lipid [id number] 03:07:03 Test Item Value Reference Range Comments Cholesterol Total (test 199 mg/dL 0-200 RISK OF HEART DISEASEPublished code=Cholesterol Total) by [place] [employer] Analyte Optimal Borderline Increased RiskCHOL [...] is LDL/HDL Ratio=LDL Calc/HDL Chol HCG Qualitative [id number] 02:33:13 Test Item Value Reference Range Comments HCG, Serum Qual (test code=HCG, Serum Qual) Negative Lot # (test code=Lot #) [id number] Expiration Dt (test code=Expiration Dt) 2020-04-23 Neg Control (test code=Neg Control) Negative Pos Control (test code=Pos Control) Positive Internal QC (test code=Internal QC) Acceptable Drugs of Abuse Urine [id number] 18:58:11 Test Item Value Reference Range Comments [...] (test Negative Negative code=Cannabinoid Screen Ur) Alcohol [id number] 18:47:34 Test Item Value Reference Range Comments Ethanol Level (test <0.00 g/dL 0.00-0.01 Intoxicated 0.080 g/dL or more code=Ethanol Level) Ethanol Inst (test <0 code=Ethanol Inst) Comprehensive Metabolic [id number] 18:47:33 Test Item Value Reference Range Comments [...] (test code=A/G Ratio) 1.0 ratio Comprehensive Metabolic [id number] 18:47:33 Test Item Value Reference Range Comments [...] is not provided, and the patient is -[place], multiply by 1.212. If sex is not [...] the National Kidney Foundation, http://nkdep.nih.gov Comprehensive Metabolic [id number] 18:47:33 Test Item Value Reference Range Comments [...] is not provided, and the patient is -[place], multiply by 1.212. If sex is not [...] is not provided, and the patient is -[place], multiply by 1.212. If sex is not [...] Kidney Foundation, http://nkdep.nih.gov Complete Blood Count with [id number] 18:15:23 Test Item Value Reference Range Comments [...] x10 IPF (test code=IPF) 0 % Automated [id number] 18:15:23 Test Item Value Reference Range Comments Neutro Auto (test code=Neutro Auto) 42.1 % 36.0-70.0 Lymph Auto (test code=Lymph Auto) 40.0 % 12.0-44.0 [place] Auto (test code=[place] Auto) 12.2 % 0.0-11.0 Eos, Auto (test code=Eos, Auto) 4.9 % 0.0-7.0 Basophil Auto (test code=Basophil Auto) 0.6 % 0.0-2.0 Neutro Absolute (test code=Neutro Absolute) 2.2 x10 1.6-7.4 Lymph Absolute (test code=Lymph Absolute) 2.06 x10 .50-4.60 [place] Absolute (test code=[place] Absolute) .63 x10 .00-1.20 Eos Absolute (test code=Eos Absolute) 0.25 x10 0.00-0.74 Baso Absolute (test code=Baso Absolute) 0.03 x10 0.00-0.21 IG [id number] 18:15:23 Test Item Value Reference Range Comments IG (test code=IG) 0.2 % 0.0-5.0 IG Abs (test code=IG Abs) 0 x10
[2019-01-29 12:48] LABS: Absolute Lymphocytes (CBC) 1.5 K/uL (0.7-4.9); Hematocrit 29.9 % (36.0-45.0); Lymphocytes % 37.7 % (15.3-44.8); MPV 8.1 fL (7.6-11.3)
[2019-01-29 12:49] LABS: Protime INR 0.92
[2019-01-29 13:05] LABS: ALT/SGPT 13 U/L (12-78); AST/SGOT 15 U/L (15-37); Albumin 2.9 g/dL (3.4-5.0); Alkaline Phosphatase 80 U/L (45-117); BUN Blood Urea Nitrogen 20 mg/dL (7-18); Bicarbonate 30 mmol/L (21-32); Bilirubin Direct < 0.1 mg/dL (0-0.2); Bilirubin Total 0.1 mg/dL (0.2-1.0); Glucose Level 81 mg/dL (74-106); Magnesium 1.9 mg/dL (1.8-2.4); NT PRO-BNP 188 pg/mL (<125); Potassium 3.8 mmol/L (3.5-5.1); Protein, Total 7.3 g/dL (6.4-8.2); Sodium Level 140 mmol/L (136-145); Troponin (Emerg Dept Use Only) < 0.02 ng/mL (0.0-0.045)
--- NOTE | 2019-01-29 13:22 | RAD REPORT ---
EXAM DESCRIPTION: Kristy Single View01/29/2019 12:57 pm CLINICAL HISTORY: Chest pain COMPARISON: December 2018 FINDINGS: The lungs appear clear of acute infiltrate. The heart is normal size IMPRESSION: No acute abnormalities displayed
--- NOTE | 2019-01-29 13:47 | ER ---
Nurse's Notes [facility] Name: Sidra Hodges Age: 44 yrs Sex: Female : 1975 Arrival Date: 01/29/2019 Time: 11:22 Bed 15 Private MD: Diagnosis: Chest pain, unspecified Presentation: 01/29 11:23 Presenting complaint: Patient states: Reports pain to epigastrium and rectum that is aj chronic. Transition of care: patient was not received from another setting of care. Onset of symptoms was 2018. Risk Assessment: Do you want to hurt yourself or someone else? Patient reports no desire to harm self or others. Initial Sepsis Screen: Does the patient meet any 2 criteria? No. Patient's initial sepsis screen is negative. Does the patient have a suspected source of infection? No. Patient's initial sepsis screen is negative. Care prior to arrival: None. 11:23 Method Of Arrival: EMS: [facility] 11:23 Acuity: CARMITA 3 aj Triage Assessment: 11:25 General: Appears in no apparent distress. comfortable, Behavior is calm, cooperative, aj appropriate for age. Pain: Complains of pain in epigastric area and anus. Neuro: Level of Consciousness is awake, alert, obeys commands, Oriented to person, place, time, situation, Appropriate for age. Cardiovascular: Capillary refill < 3 seconds in bilateral fingers Patient's skin is warm and dry. Respiratory: Airway is patent Respiratory effort is even, unlabored, Respiratory pattern is regular, symmetrical. GI: Reports epigastric pain. Derm: Skin is intact, is healthy with good turgor, Skin is pink, warm \T\ dry. normal. Historical: - Allergies: 11:25 NKA; aj - Home Meds: 11:25 Depakote Oral [Active]; Tegretol Oral [Active]; oxcarbazepine 300 mg Oral tab 2 times aj per day [Active]; - PMHx: 11:25 Anxiety; Bipolar disorder; Depression; epilepsy; hemorrhoids; aj - PSHx: 11:25 None; aj - Immunization history:: Adult Immunizations up to date. - Social history:: Smoking status: Patient/guardian denies using tobacco. - Ebola Screening: : No symptoms or risks identified at this time. Screenin:45 Abuse screen: Denies threats or abuse. Denies injuries from another. Nutritional aj screening: No deficits noted. Tuberculosis screening: No symptoms or risk factors identified. Fall Risk None identified. Assessment: 12:45 Reassessment: No changes from previously documented assessment. aj 13:53 Reassessment: Patient appears in no apparent distress at this time. No changes from aj previously documented assessment. Patient and/or family updated on plan of care and expected duration. Pain level reassessed. Patient is alert, oriented x 3, equal unlabored respirations, skin warm/dry/pink. Patient denies pain at this time. Patient states feeling better. Patient states symptoms have improved. Vital Signs: 11:25 BP 150 / 79; Pulse 79; Resp 16; Temp 98.5; Pulse Ox 98% on R/A; Weight 81.65 kg; Height aj 5 ft. 3 in. (160.02 cm); 11:25 Body Mass Index 31.89 (81.65 kg, 160.02 cm) ED Course: 11:22 Patient arrived in ED. aj 11:24 Triage completed. aj 11:25 Arm band placed on left wrist. aj 11:32 Artur Watkins PA is PHCP. [facility] 11:32 Boris Olivera MD is Attending Physician. [facility] 12:45 Kateryna Aguillon, RN is Primary Nurse. aj 12:45 Patient has correct armband on for positive identification. aj 12:45 Inserted saline lock: 22 gauge in right antecubital area, using aseptic technique. aj Blood collected. 12:56 X-ray completed. Portable x-ray completed in exam room. Patient tolerated procedure 1 well. 12:59 XRAY Chest (1 view) In Process Unspecified. EDNC 13:53 No provider procedures requiring assistance completed. IV discontinued, intact, aj bleeding controlled, No redness/swelling at site. Pressure dressing applied. Administered Medications: No medications were administered Outcome: 13:46 Discharge ordered by . [facility] 13:53 Discharged to home ambulatory. aj 13:53 Condition: good 13:53 Discharge instructions given to patient, Instructed on discharge instructions, follow up and referral plans. Demonstrated understanding of instructions, follow-up care. 13:59 Patient left the ED. aj Signatures: Dispatcher [employer] EDMS Kateryna Aguillon, RN RN Artur Sweeney PA PA Zoraida Champagne [facility]
--- NOTE | 2019-01-29 13:47 | EDPHYS ---
Physician Documentation [facility] Name: Sidra Hogdes Age: 44 yrs Sex: Female : 1975 Arrival Date: 01/29/2019 Time: 11:22 Bed 15 Private MD: ED Physician Boris Olivera HPI: 01/29 12:21 This 44 yrs old Female presents to ER via EMS with complaints of Chest Pain. jmm 12:21 The patient or guardian reports chest pain that is located primarily in the substernal [facility] area. 12:21 Onset: gradually, 1 day(s) ago. The pain does not radiate. Associated signs and [facility] symptoms: Pertinent positives: lightheadedness, Pertinent negatives: shortness of breath. This is a 44 year old female with a history of bipolar depression, epilepsy, that presents to the ED with complaints of chest pain beginning after becoming upset yesterday. Patient states that episode lasted fro approx 1.5 hours. Patient states she developed chest pain just prior to arrival which continues today. . Historical: - Allergies: 11:25 NKA; aj - Home Meds: 11:25 Depakote Oral [Active]; Tegretol Oral [Active]; oxcarbazepine 300 mg Oral tab 2 times aj per day [Active]; - PMHx: 11:25 Anxiety; Bipolar disorder; Depression; epilepsy; hemorrhoids; aj - PSHx: 11:25 None; aj - Immunization history:: Adult Immunizations up to date. - Social history:: Smoking status: Patient/guardian denies using tobacco. - Ebola Screening: : No symptoms or risks identified at this time. ROS: 12:21 Constitutional: Negative for fever, chills, and weight loss. jmm 12:21 Back: Negative for injury and pain. 12:21 Cardiovascular: Positive for chest pain. 12:21 Respiratory: Positive for shortness of breath. 12:21 Neuro: Negative for weakness. 12:21 All other systems are negative. Exam: 12:21 Head/Face: atraumatic. Eyes: EOMI, no conjunctival erythema appreciated ENT: Moist jmm Mucus Membranes Neck: Trachea midline, Supple Chest/axilla: Normal chest wall appearance and motion. 12:21 Constitutional: The patient appears alert, awake, anxious. 12:21 Cardiovascular: Rate: normal, Rhythm: regular, Pulses: no pulse deficits are appreciated. 12:21 Respiratory: the patient does not display signs of respiratory distress, Respirations: normal, Breath sounds: are clear throughout. 12:21 Abdomen/GI: Inspection: abdomen appears normal, Bowel sounds: normal, Palpation: abdomen is soft and non-tender, in all quadrants. 12:21 Musculoskeletal/extremity: ROM: intact in all extremities. 12:21 Skin: Appearance: Color: normal in color. 12:21 Neuro: Orientation: is normal, Mentation: is normal, Memory: is normal. 12:21 Psych: Behavior/mood is cooperative, anxious, Affect is flat. 13:38 ECG was reviewed by the Attending Physician. [facility] Vital Signs: 11:25 BP 150 / 79; Pulse 79; Resp 16; Temp 98.5; Pulse Ox 98% on R/A; Weight 81.65 kg; Height aj 5 ft. 3 in. (160.02 cm); 11:25 Body Mass Index 31.89 (81.65 kg, 160.02 cm) MDM: 12:[address] [facility] 13:39 Data reviewed: vital signs, nurses notes, lab test result(s), radiologic studies, plain [facility] films. ED course: HEART SCORE = 3. Patient is advised to follow up with pcp and otherwise given strict return precautions. patient understood and agrees with the plan of care. . 01/29 12:22 Order name: Basic Metabolic Panel; Complete Time: 13:07 [facility] 01/29 12:22 Order name: CBC with Diff; Complete Time: 12:51 [facility] 01/29 12:22 Order name: LFT's; Complete Time: 13:07 [facility] 01/29 12:22 Order name: Magnesium; Complete Time: 13:07 [facility] 01/29 12:22 Order name: NT PRO-BNP; Complete Time: 13:07 [facility] 01/29 12:22 Order name: PT-INR; Complete Time: 12:53 [facility] 01/29 12:22 Order name: Troponin (emerg Dept Use Only); Complete Time: 13:07 [facility] 01/29 12:22 Order name: XRAY Chest (1 view); Complete Time: 13:33 [facility] 01/29 12:22 Order name: EKG; Complete Time: 12:23 [facility] 01/29 12:22 Order name: Cardiac monitoring; Complete Time: 12:34 jm 01/29 12:22 Order name: EKG - Nurse/Tech; Complete Time: 12:34 jm 01/29 12:22 Order name: IV Saline Lock; Complete Time: 13:40 jm 01/29 12:22 Order name: Labs collected and sent; Complete Time: 13:40 [facility] 01/29 12:22 Order name: O2 Per Protocol; Complete Time: 12:35 jm 01/29 12:22 Order name: O2 Sat Monitoring; Complete Time: 12:35 jmm EC:38 Rate is 58 beats/min. Rhythm is regular. QRS [place] is Normal. [place] interval is normal. QRS jmm interval is normal. QT interval is normal. No Q waves. T waves are Flattened in leads II, III, aVL, aVR. No ST changes noted. Reviewed by me. Administered Medications: No medications were administered Disposition: 16:09 Co-signature as Attending Physician, Boris Olivera MD I agree with the assessment and kdr plan of care. Disposition: 01/29/19 13:46 Discharged to Home. Impression: Chest pain, unspecified. - Condition is Stable. - Discharge Instructions: Nonspecific Chest Pain. - Medication Reconciliation Form, Thank You Letter, Antibiotic Education, Prescription Opioid Use form. - Follow up: Private Physician; When: 2 - 3 days; Reason: Recheck today's complaints, Continuance of care, Re-evaluation by your physician. Signatures: Dispatcher [employer] Kateryna Arroyo RN RN aj Rittger, Kevin, MD MD kdr Mickail, Joel, PA PA [facility] Corrections: (The following items were deleted from the chart) 13:59 13:46 01/29/2019 13:46 Discharged to Home. Impression: Chest pain, unspecified. aj Condition is Stable. Forms are Medication Reconciliation Form, Thank You Letter, Antibiotic Education, Prescription Opioid Use. Follow up: Private Physician; When: 2 - 3 days; Reason: Recheck today's complaints, Continuance of care, Re-evaluation by your physician. [facility]
--- NOTE | 2019-01-29 16:27 | EKG ---
Test Date: 2019-01-29 Test Time: 12:31:32 [employer] Coordinator: OLGA MEASUREMENT RESULTS: Intervals: Rate: 58 IL: 164 QRSD: 90 QT: 334 QTc: 327 [place]: P: 31 [place]: 164 QRS: 12 T: 70 INTERPRETIVE STATEMENTS: Sinus bradycardia Nonspecific T wave abnormality Abnormal ECG Compared to ECG 01/21/2019 13:47:03 No significant changes Electronically Signed On 01-29-19 16:25:30 CDT by Dimitri Bruce
== END 2019-01-29 13:59 | disposition home or self-care (01) ==
LOC: ER 11:18
DX: R07.9 Chest pain, unspecified (principal); G40.909 Epilepsy, unspecified, not intractable, without status epilepticus; F32.9 Major depressive disorder, single episode, unspecified; F41.9 Anxiety disorder, unspecified; F31.9 Bipolar disorder, unspecified
CPT/HCPCS: 36415; 71045; 80048; 80076; 83735; 83880; 84484; 85025; 85610; 93005; 99284

== ENCOUNTER 2019-01-31 03:22 | Emergency (ER) | payer SELFPAY ==
--- OUTSIDE RECORDS SUMMARY | 2019-01-31 03:25 | XMS REPORT ---
:1975 [facility] Address [address] [place] [address] Care Team Providers Name Role Phone Unavailable [...] code=Valproic Acid Level) 57.6 ug/mL(g) 50.0-100.0 Hemoglobin [id number] 09:36:00 Test Item Value Reference Range Comments Hemoglobin A1c (test 5.0 % 4.8-5.9 Non Diabetic 4.8-5.9%Diabetic code=Hemoglobin A1c) <7.0% CT Shoulder w/o Contrast [id number] 16:49:13Patient: BHUMIKA JONES Date/Time01/09/2019 16:14 CDTReason for [...] FSigned (Electronic Signature): 01/09/2019 4: 49 pmRPR [id number] 21:33:20 Test Item Value Reference Range Comments RPR Qual (test code=RPR Qual) Non-Reactive Non-Reactive Reactive Control (test code=Reactive Control) Reactive Weak Reactive Control (test code=Weak Reactive Weak Reactive Control) Non-Reactive Control (test code=Non-Reactive Non-Reactive Control) Lot # (test code=Lot #) [id number] Expiration Dt (test code=Expiration Dt) 04-23-2020 XR Shoulder Complete 2+ Views [id number] 15:41:25Patient: BHUMIKA JONES Date/Time2018 15:25 CDTReason for [...] ( Electronic Signature): 01/07/2019 3:41 pmThyroid Stimulating [id number] 03:07:04 Test Item Value Reference Range Comments TSH (test code=TSH) 9.650 mIU/mL 0.270-4.200 Lipid [id number] 03:07:03 Test Item Value Reference Range Comments Cholesterol Total (test 199 mg/dL 0-200 RISK OF HEART DISEASEPublished code=Cholesterol Total) by [place] [employer] Analyte Optimal Borderline Increased RiskCHOL [...] is LDL/HDL Ratio=LDL Calc/HDL Chol HCG Qualitative [id number] 02:33:13 Test Item Value Reference Range Comments HCG, Serum Qual (test code=HCG, Serum Qual) Negative Lot # (test code=Lot #) [id number] Expiration Dt (test code=Expiration Dt) 2020-04-23 Neg Control (test code=Neg Control) Negative Pos Control (test code=Pos Control) Positive Internal QC (test code=Internal QC) Acceptable Drugs of Abuse Urine [id number] 18:58:11 Test Item Value Reference Range Comments [...] (test Negative Negative code=Cannabinoid Screen Ur) Alcohol [id number] 18:47:34 Test Item Value Reference Range Comments Ethanol Level (test <0.00 g/dL 0.00-0.01 Intoxicated 0.080 g/dL or more code=Ethanol Level) Ethanol Inst (test <0 code=Ethanol Inst) Comprehensive Metabolic [id number] 18:47:33 Test Item Value Reference Range Comments [...] (test code=A/G Ratio) 1.0 ratio Comprehensive Metabolic [id number] 18:47:33 Test Item Value Reference Range Comments [...] is not provided, and the patient is -[place], multiply by 1.212. If sex is not [...] the National Kidney Foundation, http://nkdep.nih.gov Comprehensive Metabolic [id number] 18:47:33 Test Item Value Reference Range Comments [...] is not provided, and the patient is -[place], multiply by 1.212. If sex is not [...] is not provided, and the patient is -[place], multiply by 1.212. If sex is not [...] Kidney Foundation, http://nkdep.nih.gov Complete Blood Count with [id number] 18:15:23 Test Item Value Reference Range Comments [...] x10 IPF (test code=IPF) 0 % Automated [id number] 18:15:23 Test Item Value Reference Range Comments Neutro Auto (test code=Neutro Auto) 42.1 % 36.0-70.0 Lymph Auto (test code=Lymph Auto) 40.0 % 12.0-44.0 [place] Auto (test code=[place] Auto) 12.2 % 0.0-11.0 Eos, Auto (test code=Eos, Auto) 4.9 % 0.0-7.0 Basophil Auto (test code=Basophil Auto) 0.6 % 0.0-2.0 Neutro Absolute (test code=Neutro Absolute) 2.2 x10 1.6-7.4 Lymph Absolute (test code=Lymph Absolute) 2.06 x10 .50-4.60 [place] Absolute (test code=[place] Absolute) .63 x10 .00-1.20 Eos Absolute (test code=Eos Absolute) 0.25 x10 0.00-0.74 Baso Absolute (test code=Baso Absolute) 0.03 x10 0.00-0.21 IG [id number] 18:15:23 Test Item Value Reference Range Comments IG (test code=IG) 0.2 % 0.0-5.0 IG Abs (test code=IG Abs) 0 x10
[2019-01-31] MEDS ORDERED: LORazepam 2 MG/ML VIAL ONE (03:54)
[2019-01-31] MEDS ORDERED: NA CHLORIDE 0.9% 1,000 ML ONE (03:54)
[2019-01-31 04:42] LABS: RBC Red Blood Cell Count 3.65 M/uL (3.86-4.86)
[2019-01-31 04:43] LABS: Absolute Lymphocytes (CBC) 1.7 K/uL (0.7-4.9); Basophils % 0.6 % (0-1.3); Hematocrit 30.2 % (36.0-45.0); Lymphocytes % 43.3 % (15.3-44.8); MPV 8.3 fL (7.6-11.3)
[2019-01-31 04:49] LABS: ALT/SGPT 13 U/L (12-78); AST/SGOT 18 U/L (15-37); Albumin 2.8 g/dL (3.4-5.0); Alkaline Phosphatase 79 U/L (45-117); BUN Blood Urea Nitrogen 19 mg/dL (7-18); Bicarbonate 28 mmol/L (21-32); Bilirubin Direct < 0.1 mg/dL (0-0.2); Glucose Level 75 mg/dL (74-106); Lipase 75 U/L (73-393); Potassium 3.5 mmol/L (3.5-5.1); Protein, Total 7.3 g/dL (6.4-8.2); Sodium Level 140 mmol/L (136-145)
[2019-01-31 05:00] LABS: Urine Blood NEGATIVE (NEG); Urine Glucose NEGATIVE (NEG); Urine Protein NEGATIVE (NEG); Urine Specific Gravity 1.025 (1.005-1.030); Urine pH 5.5 (5.0-7.0)
[2019-01-31 05:04] LABS: Bilirubin Total < 0.1 mg/dL (0.2-1.0)
[2019-01-31 05:45] LABS: Urine Bacteria 20-50 /HPF (<20); Urine Culture Reflex Order NOT NEEDED; Urine Mucus LIGHT /HPF (NONE SEEN); Urine RBC NONE SEEN /HPF (NONE SEEN)
--- NOTE | 2019-01-31 06:06 | EDPHYS ---
Physician Documentation [facility] Name: Sidra Hodges Age: 44 yrs Sex: Female : 1975 Arrival Date: 01/31/2019 Time: 03:33 Bed 6 Private MD: ED Physician Jeffrey Herr HPI: 01/31 03:51 This 44 yrs old Female presents to ER via EMS with unknown complaint. pkl 03:51 The patient presents with abdominal pain in the upper abdomen. Onset: The pkl symptoms/episode began/occurred just prior to arrival. The symptoms do not radiate. Associated signs and symptoms: Pertinent positives: chest pain. Patient said the medications that she is taking is causing her to have chest and abdominal pain. 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 - Social history:: Smoking status: Patient/guardian denies using tobacco, Patient/guardian denies using alcohol, street drugs. - Ebola Screening: : Patient negative for fever greater than or equal to 101.5 degrees Fahrenheit, and additional compatible Ebola Virus Disease symptoms Patient denies exposure to infectious person Patient denies travel to an Ebola-affected area in the 21 days before illness onset. ROS: 03:51 Eyes: Negative for injury, pain, redness, and discharge, ENT: Negative for injury, pkl pain, and discharge, Neck: Negative for injury, pain, and swelling. 03:51 Cardiovascular: Positive for chest pain. 03:51 Respiratory: Negative for cough, shortness of breath. 03:51 Abdomen/GI: Positive for abdominal pain, of the right upper quadrant and left upper quadrant. 03:51 Back: Negative for acute changes. 03:51 : Negative for urinary symptoms. 03:51 MS/extremity: Negative for acute changes. 03:51 Skin: Negative for rash. 03:51 Neuro: Negative for altered mental status, loss of consciousness. 03:51 Psych: Positive for anxiety. Exam: 03:51 Head/Face: Normocephalic, atraumatic. Eyes: Pupils equal round and reactive to light, pkl extra-ocular motions intact. Lids and lashes normal. Conjunctiva and sclera are non-icteric and not injected. Cornea within normal limits. Periorbital areas with no swelling, redness, or edema. ENT: Nares patent. No nasal discharge, no septal abnormalities noted. Tympanic membranes are normal and external auditory canals are clear. Oropharynx with no redness, swelling, or masses, exudates, or evidence of obstruction, uvula midline. Mucous membranes moist. Neck: Trachea midline, no thyromegaly or masses palpated, and no cervical lymphadenopathy. Supple, full range of motion without nuchal rigidity, or vertebral point tenderness. No Meningismus. Chest/axilla: Normal chest wall appearance and motion. Nontender with no deformity. No lesions are appreciated. Cardiovascular: Regular rate and rhythm with a normal S1 and S2. No gallops, murmurs, or rubs. Normal PMI, no JVD. No pulse deficits. Respiratory: Lungs have equal breath sounds bilaterally, clear to auscultation and percussion. No rales, rhonchi or wheezes noted. No increased work of breathing, no retractions or nasal flaring. 03:51 Respiratory: the patient does not display signs of respiratory distress, Respirations: normal, Breath sounds: are clear throughout. 03:51 Abdomen/GI: Bowel sounds: normal, Palpation: abdomen is soft and non-tender, in all quadrants. 03:51 Back: Exam negative for acute changes. 03:51 : Exam negative for acute changes. 03:51 Musculoskeletal/extremity: Exam is negative for acute changes. 03:51 Skin: Exam negative for rash. 03:51 Neuro: Orientation: appropriate for stated age, Mentation: is normal, Cranial nerves: grossly normal, Motor: is normal. 03:51 Psych: Behavior/mood is cooperative, Affect is calm, Patient has no thoughts/intents to harm self or others. Vital Signs: 03:35 BP 130 / 87; Pulse 62; Resp 16; Temp 97.8; Pulse Ox 100% ; Weight 54.43 kg; Height 4 rr5 ft. 9 in. (144.78 cm); Pain 10/10; 04:17 BP 111 / 80; Pulse 59; Resp 16; Pulse Ox 100% on R/A; rr5 05:00 BP 120 / 73; Pulse 55; Resp 14; Pulse Ox 100% on R/A; rr5 05:49 BP 126 / 78; Pulse 53; Resp 12; Pulse Ox 100% on R/A; rr5 06:50 BP 121 / 76; Pulse 61; Resp 15; Pulse Ox 100% on R/A; rr5 03:35 Body Mass Index 25.97 (54.43 kg, 144.78 cm) rr5 MDM: 03:36 Patient medically screened. pkl 06:04 Data reviewed: vital signs, nurses notes, lab test result(s), EKG, radiologic studies, pkl plain films. ED course: Patient feeling better. Not in any distress.. 01/31 03:48 Order name: Basic Metabolic Panel; Complete Time: 05:37 pkl 01/31 03:48 Order name: CBC with Diff; Complete Time: 05:01 pkl 01/31 03:48 Order name: Creatinine for Radiology; Complete Time: 05:01 pkl 01/31 03:48 Order name: Hepatic Function; Complete Time: 05:37 pkl 01/31 03:48 Order name: Lipase; Complete Time: 05:37 pkl 01/31 04:16 Order name: Urine Microscopic Only; Complete Time: 05:53 mw2 01/31 03:48 Order name: IV Saline Lock; Complete Time: 04:05 pkl 01/31 03:48 Order name: EKG; Complete Time: 03:51 pkl 01/31 03:48 Order name: XRAY CXR (1 view) pkl 01/31 04:16 Order name: Urine Culture mw2 01/31 04:21 Order name: Urine Dipstick--Ancillary (enter results); Complete Time: 05:01 ar5 01/31 04:21 Order name: Urine --Ancillary (enter results); Complete Time: 05:01 ar5 01/31 03:48 Order name: Labs collected and sent; Complete Time: 04:05 pkl Administered Medications: 04:15 Drug: NS 0.9% 1000 ml Route: IV; Rate: 125 ml/hr; Site: right antecubital; rr5 06:50 Follow up: Response: No adverse reaction; IV Status: Order to discontinue infusion; IV rr5 Intake: 300ml 04:16 Drug: Ativan 1 mg Route: IVP; Site: right antecubital; rr5 04:16 Follow up: Response: RASS: Alert and Calm (0); on administration. rr5 05:29 Follow up: Response: RASS: Drowsy (-1) rr5 Disposition: 01/31/19 06:07 Discharged to Home. Impression: Chest pain. Abdominal pain. Anxiety disorder. Urinary tract infection. - Condition is Stable. - Prescriptions for Cipro 500 mg Oral Tablet - take 1 tablet by ORAL route every 12 hours for 5 days; 10 tablet. - Medication Reconciliation Form, Thank You Letter, Antibiotic Education, Prescription Opioid Use form. - Follow up: Private Physician; When: 2 - 3 days; Reason: Re-evaluation by your physician. - Problem is new. - Symptoms have improved. Signatures: Dispatcher [employer] EDFL Jeffrey Herr MD MD pkl Aleks Field RN RN rr5 Corrections: (The following items were deleted from the chart) 06:58 06:07 01/31/2019 06:07 Discharged to Home. Impression: Chest pain. Abdominal pain. rr5 Anxiety disorder. Urinary tract infection. Condition is Stable. Forms are Medication Reconciliation Form, Thank You Letter, Antibiotic Education, Prescription Opioid Use. Follow up: Private Physician; When: 2 - 3 days; Reason: Re-evaluation by your physician. Problem is new. Symptoms have improved. pkl
--- NOTE | 2019-01-31 06:06 | ER ---
Nurse's Notes [facility] Name: Sidra Hodges Age: 44 yrs Sex: Female : 1975 Arrival Date: 01/31/2019 Time: 03:33 Bed 6 Private MD: Diagnosis: Chest pain. Abdominal pain. Anxiety disorder. Urinary tract infection Presentation: 01/31 03:33 Presenting complaint: EMS states: PD on the scene. patient said she is having some rr5 allergic reaction from the medications that she is taking for years. vitally stable BP 118/74 mmHg no deficit noted. Transition of care: patient was not received from another setting of care. Onset of symptoms was January 31, 2019. Risk Assessment: Do you want to hurt yourself or someone else? Patient reports no desire to harm self or others. Initial Sepsis Screen: Does the patient meet any 2 criteria? No. Patient's initial sepsis screen is negative. Does the patient have a suspected source of infection? No. Patient's initial sepsis screen is negative. Care prior to arrival: None. 03:33 Method Of Arrival: EMS: [facility] rr5 03:33 Acuity: CARMITA 3 rr5 03:40 Note patient stated complaining of abdominal pain pain score 10/10. 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 - Social history:: Smoking status: Patient/guardian denies using tobacco, Patient/guardian denies using alcohol, street drugs. - Ebola Screening: : Patient negative for fever greater than or equal to 101.5 degrees Fahrenheit, and additional compatible Ebola Virus Disease symptoms Patient denies exposure to infectious person Patient denies travel to an Ebola-affected area in the 21 days before illness onset. Screenin:46 Abuse screen: Denies threats or abuse. Denies injuries from another. Nutritional rr5 screening: No deficits noted. Tuberculosis screening: No symptoms or risk factors identified. Fall Risk None identified. Total Davidson Fall Scale indicates No Risk (0-24 pts). Assessment: 03:47 General: Appears in no apparent distress. comfortable, Behavior is calm. Pain: rr5 Complains of pain in abdomen Pain does not radiate. Pain currently is 10 out of 10 on a pain scale. Quality of pain is described as aching, Pain began gradually, Is intermittent. Neuro: Level of Consciousness is awake, alert, obeys commands, Oriented to person, place, time, situation, Appropriate for age. Cardiovascular: Capillary refill < 3 seconds Patient's skin is warm and dry. Respiratory: Airway is patent Respiratory effort is even, unlabored, Respiratory pattern is regular, symmetrical. GI: Abdomen is round Reports upper abdominal pain, Patient currently denies nausea, vomiting. : No signs and/or symptoms were reported regarding the genitourinary system. EENT: No signs and/or symptoms were reported regarding the EENT system. Derm: Skin is intact, Skin temperature is warm. Musculoskeletal: Circulation, motion, and sensation intact. Capillary refill < 3 seconds. 04:20 Reassessment: Patient appears in no apparent distress at this time. eyes closed rr5 breathing spontaneously at room air. on semifowlers position maintaining oxygen saturation at 99-100% at RA. 05:25 Reassessment: Patient appears in no apparent distress at this time. patient is drowsy rr5 arouse easily on verbal and light stimuli. Vital signs taken and recorded. 06:00 Reassessment: Patient appears in no apparent distress at this time. reassess by ED rr5 provider once patient is fully awake for discharge. 06:54 Reassessment: Patient appears in no apparent distress at this time. Patient and/or rr5 family updated on plan of care and expected duration. Pain level reassessed. Patient is alert, oriented x 3, equal unlabored respirations, skin warm/dry/pink. discharge instruction given and explained without complaints made. on hemodynamically stable, steady gait noted while walking on the corridor. Vital Signs: 03:35 BP 130 / 87; Pulse 62; Resp 16; Temp 97.8; Pulse Ox 100% ; Weight 54.43 kg; Height 4 rr5 ft. 9 in. (144.78 cm); Pain 10/10; 04:17 BP 111 / 80; Pulse 59; Resp 16; Pulse Ox 100% on R/A; rr5 05:00 BP 120 / 73; Pulse 55; Resp 14; Pulse Ox 100% on R/A; rr5 05:49 BP 126 / 78; Pulse 53; Resp 12; Pulse Ox 100% on R/A; rr5 06:50 BP 121 / 76; Pulse 61; Resp 15; Pulse Ox 100% on R/A; rr5 03:35 Body Mass Index 25.97 (54.43 kg, 144.78 cm) rr5 ED Course: 03:33 Patient arrived in ED. rr5 03:35 Arm band placed on right wrist. rr5 03:36 Jeffrey Herr MD is Attending Physician. pkl 03:37 Triage completed. rr5 03:50 Aleks Field, RN is Primary Nurse. rr5 04:00 Inserted saline lock: 20 gauge in right antecubital area, using aseptic technique. jd3 Blood collected. 04:04 XRAY CXR (1 view) In Process Unspecified. EDMS 04:10 No provider procedures requiring assistance completed. EKG done, by ED staff, reviewed rr5 by Jeffrey Herr MD. 04:15 Patient has correct armband on for positive identification. Placed in gown. Bed in low rr5 position. Call light in reach. Side rails up X2. equipment monitor phototypesetting on. Pulse ox on. NIBP on. 04:15 Warm blanket given. rr5 06:56 IV discontinued, intact, bleeding controlled, No redness/swelling at site. Pressure rr5 dressing applied. Administered Medications: 04:15 Drug: NS 0.9% 1000 ml Route: IV; Rate: 125 ml/hr; Site: right antecubital; rr5 06:50 Follow up: Response: No adverse reaction; IV Status: Order to discontinue infusion; IV rr5 Intake: 300ml 04:16 Drug: Ativan 1 mg Route: IVP; Site: right antecubital; rr5 04:16 Follow up: Response: RASS: Alert and Calm (0); on administration. rr5 05:29 Follow up: Response: RASS: Drowsy (-1) rr5 Intake: 06:50 IV: 300ml; Total: 300ml. rr5 Outcome: 06:07 Discharge ordered by . pkl 06:56 Discharged to home ambulatory. rr5 06:56 Condition: stable 06:56 Discharge instructions given to patient, Instructed on discharge instructions, follow up and referral plans. medication usage, Demonstrated understanding of instructions, follow-up care, medications, Prescriptions given X 1. 06:58 Patient left the ED. rr5 Signatures: Dispatcher [employer] EDMS Jeffrey Herr MD MD pkl Davies, Jonathon, RN RN jd3 Aleks Field RN RN rr5
--- NOTE | 2019-01-31 07:36 | EKG ---
Test Date: 2019-01-31 Test Time: 04:12:37 Home Health Occupational Therapist: RR MEASUREMENT RESULTS: Intervals: Rate: 59 MA: 114 QRSD: 82 QT: 470 QTc: 465 [place]: P: 40 MA: 114 QRS: 57 T: 23 INTERPRETIVE STATEMENTS: Sinus bradycardia Nonspecific ST and T wave abnormality Abnormal ECG Compared to ECG 01/29/2019 12:31:32 ST (T wave) deviation now present T-wave abnormality no longer present Electronically Signed On 01-31-19 07:35:54 CDT by Flo Purvis
--- NOTE | 2019-01-31 12:24 | RAD REPORT ---
EXAM DESCRIPTION: RAD - Chest Single View - 01/31/2019 4:06 am CLINICAL HISTORY: CHEST PAIN Chest pain. COMPARISON: Chest Single View dated 01/29/2019; Chest Pa And Lat (2 Views) dated 01/21/2019; Chest Sing le View dated 01/18/2019; Chest Single View dated 12/08/2018 FINDINGS: Portable technique limits examination quality. Lungs are underinflated which causes vascular crowding. The heart is normal in size. No displaced fra ctures. IMPRESSION: Underinflated lungs.
== END 2019-01-31 06:58 | disposition home or self-care (01) ==
LOC: ER 03:22
DX: R07.9 Chest pain, unspecified (principal); N39.0 Urinary tract infection, site not specified; R10.10 Upper abdominal pain, unspecified; F90.9 Attention-deficit hyperactivity disorder, unspecified type; F41.9 Anxiety disorder, unspecified; F31.9 Bipolar disorder, unspecified; F32.9 Major depressive disorder, single episode, unspecified
CPT/HCPCS: 36415; 71045; 80048; 80076; 81003; 81015; 81025; 83690; 85025; 87086; 87088; 93005; 96361; 96374; 99285; J7030

== ENCOUNTER 2019-02-01 13:24 | Emergency (ER) | payer SELFPAY ==
--- OUTSIDE RECORDS SUMMARY | 2019-02-01 13:27 | XMS REPORT ---
:1975 [facility] Address [address] [place] [address] Care Team Providers Name Role Phone Unavailable [...] code=Valproic Acid Level) 57.6 ug/mL(g) 50.0-100.0 Hemoglobin [id number] 09:36:00 Test Item Value Reference Range Comments Hemoglobin A1c (test 5.0 % 4.8-5.9 Non Diabetic 4.8-5.9%Diabetic code=Hemoglobin A1c) <7.0% CT Shoulder w/o Contrast [id number] 16:49:13Patient: BHUMIKA JONES Date/Time01/09/2019 16:14 CDTReason for [...] FSigned (Electronic Signature): 01/09/2019 4: 49 pmRPR [id number] 21:33:20 Test Item Value Reference Range Comments RPR Qual (test code=RPR Qual) Non-Reactive Non-Reactive Reactive Control (test code=Reactive Control) Reactive Weak Reactive Control (test code=Weak Reactive Weak Reactive Control) Non-Reactive Control (test code=Non-Reactive Non-Reactive Control) Lot # (test code=Lot #) [id number] Expiration Dt (test code=Expiration Dt) 04-23-2020 XR Shoulder Complete 2+ Views [id number] 15:41:25Patient: BHUMIKA JONES Date/Time2018 15:25 CDTReason for [...] ( Electronic Signature): 01/07/2019 3:41 pmThyroid Stimulating [id number] 03:07:04 Test Item Value Reference Range Comments TSH (test code=TSH) 9.650 mIU/mL 0.270-4.200 Lipid [id number] 03:07:03 Test Item Value Reference Range Comments Cholesterol Total (test 199 mg/dL 0-200 RISK OF HEART DISEASEPublished code=Cholesterol Total) by [place] [employer] Analyte Optimal Borderline Increased RiskCHOL [...] is LDL/HDL Ratio=LDL Calc/HDL Chol HCG Qualitative [id number] 02:33:13 Test Item Value Reference Range Comments HCG, Serum Qual (test code=HCG, Serum Qual) Negative Lot # (test code=Lot #) [id number] Expiration Dt (test code=Expiration Dt) 2020-04-23 Neg Control (test code=Neg Control) Negative Pos Control (test code=Pos Control) Positive Internal QC (test code=Internal QC) Acceptable Drugs of Abuse Urine [id number] 18:58:11 Test Item Value Reference Range Comments [...] (test Negative Negative code=Cannabinoid Screen Ur) Alcohol [id number] 18:47:34 Test Item Value Reference Range Comments Ethanol Level (test <0.00 g/dL 0.00-0.01 Intoxicated 0.080 g/dL or more code=Ethanol Level) Ethanol Inst (test <0 code=Ethanol Inst) Comprehensive Metabolic [id number] 18:47:33 Test Item Value Reference Range Comments [...] (test code=A/G Ratio) 1.0 ratio Comprehensive Metabolic [id number] 18:47:33 Test Item Value Reference Range Comments [...] is not provided, and the patient is -[place], multiply by 1.212. If sex is not [...] the National Kidney Foundation, http://nkdep.nih.gov Comprehensive Metabolic [id number] 18:47:33 Test Item Value Reference Range Comments [...] is not provided, and the patient is -[place], multiply by 1.212. If sex is not [...] is not provided, and the patient is -[place], multiply by 1.212. If sex is not [...] Kidney Foundation, http://nkdep.nih.gov Complete Blood Count with [id number] 18:15:23 Test Item Value Reference Range Comments [...] x10 IPF (test code=IPF) 0 % Automated [id number] 18:15:23 Test Item Value Reference Range Comments Neutro Auto (test code=Neutro Auto) 42.1 % 36.0-70.0 Lymph Auto (test code=Lymph Auto) 40.0 % 12.0-44.0 [place] Auto (test code=[place] Auto) 12.2 % 0.0-11.0 Eos, Auto (test code=Eos, Auto) 4.9 % 0.0-7.0 Basophil Auto (test code=Basophil Auto) 0.6 % 0.0-2.0 Neutro Absolute (test code=Neutro Absolute) 2.2 x10 1.6-7.4 Lymph Absolute (test code=Lymph Absolute) 2.06 x10 .50-4.60 [place] Absolute (test code=[place] Absolute) .63 x10 .00-1.20 Eos Absolute (test code=Eos Absolute) 0.25 x10 0.00-0.74 Baso Absolute (test code=Baso Absolute) 0.03 x10 0.00-0.21 IG [id number] 18:15:23 Test Item Value Reference Range Comments IG (test code=IG) 0.2 % 0.0-5.0 IG Abs (test code=IG Abs) 0 x10
--- NOTE | 2019-02-01 13:44 | ER ---
Nurse's Notes [facility] Name: Sidra Hodges Age: 44 yrs Sex: Female : 1975 Arrival Date: 02/01/2019 Time: 13:25 Bed Waiting Private MD: Diagnosis: Presentation: 02/01 13:25 Presenting complaint: Patient states: "I was at the [facility] [employer] and the aa5 girls there were being so mean to me so I started getting anxiety". 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 Pt walked out of ER before triage could be completed. 13:25 Transition of care: patient was not received from another setting of care. Onset of aa5 symptoms was February 01, 2019. 13:25 Acuity: CARMITA 3 aa5 13:25 Method Of Arrival: EMS: [facility] aa5 ED Course: 13:25 Patient arrived in ED. as 13:43 Pascual Lundy MD is Attending Physician. aa5 13:47 Triage completed. aa5 Administered Medications: No medications were administered Outcome: 13:26 Patient left the ED. aa5 13:26 Eloped aa5 Signatures: Jessica Perez Audri, RN RN aa5 Corrections: (The following items were deleted from the chart) 13:44 13:43 Patient left the ED. aa5 aa5
== END 2019-02-01 13:43 | disposition left against medical advice (07) ==
LOC: ER 13:24
DX: Z53.21 Procedure and treatment not carried out due to patient leaving prior to being seen by health care provider (principal)
CPT/HCPCS: 99282

== ENCOUNTER 2019-02-02 00:24 | Emergency (ER) | payer SELFPAY ==
--- OUTSIDE RECORDS SUMMARY | 2019-02-02 00:25 | XMS REPORT ---
:1975 [facility] Organization [facility] Address [address] [place] [address] Care Team Providers Name Role Phone Unavailable [...] code=Valproic Acid Level) 57.6 ug/mL(g) 50.0-100.0 Hemoglobin [id number] 09:36:00 Test Item Value Reference Range Comments Hemoglobin A1c (test 5.0 % 4.8-5.9 Non Diabetic 4.8-5.9%Diabetic code=Hemoglobin A1c) <7.0% CT Shoulder w/o Contrast [id number] 16:49:13Patient: BHUMIKA JONES Date/Time01/09/2019 16:14 CDTReason for [...] FSigned (Electronic Signature): 01/09/2019 4: 49 pmRPR [id number] 21:33:20 Test Item Value Reference Range Comments RPR Qual (test code=RPR Qual) Non-Reactive Non-Reactive Reactive Control (test code=Reactive Control) Reactive Weak Reactive Control (test code=Weak Reactive Weak Reactive Control) Non-Reactive Control (test code=Non-Reactive Non-Reactive Control) Lot # (test code=Lot #) [id number] Expiration Dt (test code=Expiration Dt) 04-23-2020 XR Shoulder Complete 2+ Views [id number] 15:41:25Patient: BHUMIKA JONES Date/Time2018 15:25 CDTReason for [...] CDictated DT/TM: 01/07/2019 3:39 pmSigned by: MD oBbby Phebe CSigned ( Electronic Signature): 01/07/2019 3:41 pmThyroid Stimulating [id number] 03:07:04 Test Item Value Reference Range Comments TSH (test code=TSH) 9.650 mIU/mL 0.270-4.200 Lipid [id number] 03:07:03 Test Item Value Reference Range Comments Cholesterol Total (test 199 mg/dL 0-200 RISK OF HEART DISEASEPublished code=Cholesterol Total) by Citizen Of [place] Heart Association Analyte Optimal Borderline Increased RiskCHOL [...] is LDL/HDL Ratio=LDL Calc/HDL Chol HCG Qualitative [id number] 02:33:13 Test Item Value Reference Range Comments HCG, Serum Qual (test code=HCG, Serum Qual) Negative Lot # (test code=Lot #) [id number] Expiration Dt (test code=Expiration Dt) 2020-04-23 Neg Control (test code=Neg Control) Negative Pos Control (test code=Pos Control) Positive Internal QC (test code=Internal QC) Acceptable Drugs of Abuse Urine [id number] 18:58:11 Test Item Value Reference Range Comments [...] (test Negative Negative code=Cannabinoid Screen Ur) Alcohol [id number] 18:47:34 Test Item Value Reference Range Comments Ethanol Level (test <0.00 g/dL 0.00-0.01 Intoxicated 0.080 g/dL or more code=Ethanol Level) Ethanol Inst (test <0 code=Ethanol Inst) Comprehensive Metabolic [id number] 18:47:33 Test Item Value Reference Range Comments [...] (test code=A/G Ratio) 1.0 ratio Comprehensive Metabolic [id number] 18:47:33 Test Item Value Reference Range Comments [...] is not provided, and the patient is -Citizen Of The [place], multiply by 1.212. If sex is not [...] the National Kidney Foundation, http://nkdep.nih.gov Comprehensive Metabolic [id number] 18:47:33 Test Item Value Reference Range Comments [...] is not provided, and the patient is -Citizen Of [place], multiply by 1.212. If sex is not [...] is not provided, and the patient is -Citizen Of [place], multiply by 1.212. If sex is not [...] Kidney Foundation, http://nkdep.nih.gov Complete Blood Count with [id number] 18:15:23 Test Item Value Reference Range Comments [...] x10 IPF (test code=IPF) 0 % Automated [id number] 18:15:23 Test Item Value Reference Range Comments Neutro Auto (test code=Neutro Auto) 42.1 % 36.0-70.0 Lymph Auto (test code=Lymph Auto) 40.0 % 12.0-44.0 [place] Auto (test code=[place] Auto) 12.2 % 0.0-11.0 Eos, Auto (test code=Eos, Auto) 4.9 % 0.0-7.0 Basophil Auto (test code=Basophil Auto) 0.6 % 0.0-2.0 Neutro Absolute (test code=Neutro Absolute) 2.2 x10 1.6-7.4 Lymph Absolute (test code=Lymph Absolute) 2.06 x10 .50-4.60 [place] Absolute (test code=[place] Absolute) .63 x10 .00-1.20 Eos Absolute (test code=Eos Absolute) 0.25 x10 0.00-0.74 Baso Absolute (test code=Baso Absolute) 0.03 x10 0.00-0.21 IG [id number] 18:15:23 Test Item Value Reference Range Comments IG (test code=IG) 0.2 % 0.0-5.0 IG Abs (test code=IG Abs) 0 x10
--- NOTE | 2019-02-02 00:48 | ER ---
Nurse's Notes [facility] Name: Sidra Hodges Age: 44 yrs Sex: Female : 1975 Arrival Date: 02/02/2019 Time: 00:25 Bed 23 Private MD: Diagnosis: Headache Presentation: 02/02 00:30 Presenting complaint: EMS states: They were called by PD because the patient was cc3 walking alone down the street due to loneliness as what they were told by the patient's brother. The patient was here in the hospital earlier but eloped. Patient's a known case of bipolar disorder. Transition of care: patient was not received from another setting of care. Onset of symptoms was February 02, 2019. Risk Assessment: Do you want to hurt yourself or someone else? Patient reports no desire to harm self or others. Initial Sepsis Screen: Does the patient meet any 2 criteria? No. Patient's initial sepsis screen is negative. Does the patient have a suspected source of infection? No. Patient's initial sepsis screen is negative. Care prior to arrival: None. 00:30 Method Of Arrival: Ambulatory cc3 00:30 Acuity: CARMITA 3 cc3 Triage Assessment: 00:30 General: Appears in no apparent distress. comfortable, Behavior is calm, cooperative. cc3 Pain: Denies pain. EENT: No signs and/or symptoms were reported regarding the EENT system. Neuro: Level of Consciousness is awake, alert, obeys commands. Cardiovascular: Denies chest pain, Capillary refill < 3 seconds Patient's skin is warm and dry. Respiratory: Airway is patent Respiratory effort is even, unlabored, Respiratory pattern is regular, symmetrical. GI: Abdomen is round. : No signs and/or symptoms were reported regarding the genitourinary system. Derm: Skin is intact, is healthy with good turgor, Skin is pink, warm \T\ dry. normal. Musculoskeletal: Circulation, motion, and sensation intact. Range of motion: intact in all extremities. Historical: - Allergies: 00:46 NKA; gs - PMHx: 00:46 ADD/ADHD; Bipolar disorder; hemorrhoids; gs - Immunization history:: Adult Immunizations unknown. - Social history:: The patient lives at home, Smoking status: unknown. - Ebola Screening: : No symptoms or risks identified at this time. Screenin:30 Abuse screen: Denies threats or abuse. Denies injuries from another. Nutritional cc3 screening: No deficits noted. Tuberculosis screening: No symptoms or risk factors identified. Fall Risk Ambulatory Aid- None/Bed Rest/Nurse Assist (0 pts). Gait- Normal/Bed Rest/Wheelchair (0 pts). Assessment: 00:30 General: see triage assessment. cc3 01:10 Reassessment: Patient appears in no apparent distress at this time. Patient and/or cc3 family updated on plan of care and expected duration. Pain level reassessed. Patient is alert, oriented x 3, equal unlabored respirations, skin warm/dry/pink. Dr. Petersen discharged the patient home, no prescription given. No IV cannula in situ. Patient left ER vitally stable and ambulatory. No valuables left in the patient's room. Patient denies pain at this time. Vital Signs: 00:30 BP 110 / 70; Pulse 80; Resp 16 S; Temp 98(O); Pulse Ox 100% on R/A; cc3 ED Course: 00:25 Patient arrived in ED. ds1 00:28 Tom Petersen MD is Attending Physician. 00:30 Madeleine Solis is Primary Nurse. cc3 00:30 Patient has correct armband on for positive identification. Bed in low position. Call cc3 light in reach. Side rails up X2. Pulse ox on. NIBP on. 00:30 Arm band placed on right wrist. cc3 00:49 Triage completed. cc3 01:10 No provider procedures requiring assistance completed. Patient did not have IV access cc3 during this emergency room visit. Administered Medications: No medications were administered Outcome: 00:47 Discharge ordered by . gs 01:10 Discharged to home ambulatory. cc3 01:10 Condition: stable 01:10 Discharge instructions given to patient, Instructed on discharge instructions, follow up and referral plans. Demonstrated understanding of instructions, follow-up care. 01:22 Patient left the ED. cc3 Signatures: Mae Machado ds1 Tom Petersen MD MD Madeleine Solis cc3 Corrections: (The following items were deleted from the chart) 02:56 00:30 Presenting complaint: EMS states: They were called by PD because the patient was cc3 walking alone down the street due to loneliness as what they were told by the patient's brother. The patient was here in the hospital earlier but eloped. Patient's a known case of Schizophrenia. cc3
--- NOTE | 2019-02-02 00:48 | EDPHYS ---
Physician Documentation [facility] Name: Sidra Hodges Age: 44 yrs Sex: Female : 1975 Arrival Date: 02/02/2019 Time: 00:25 Bed 23 Private MD: ED Physician Tom Petersen HPI: 02/02 00:43 This 44 yrs old Female presents to ER via Unassigned with complaints of gs headache. 00:43 The patient complains of pain to the forehead. The patient describes the headache as gs throbbing. Onset: The symptoms/episode began/occurred gradually. Associated signs and symptoms: Pertinent negatives: altered mental status, dizziness, fever. Severity of symptoms: At its worst the pain was mild, in the emergency department the pain is unchanged. The patient has experienced similar episodes in the past, multiple times. Historical: - Allergies: 00:46 NKA; gs - PMHx: 00:46 ADD/ADHD; Bipolar disorder; hemorrhoids; gs - Immunization history:: Adult Immunizations unknown. - Social history:: The patient lives at home, Smoking status: unknown. - Ebola Screening: : No symptoms or risks identified at this time. ROS: 00:46 All other systems are negative. gs Exam: 00:46 Head/Face: Normocephalic, atraumatic. Eyes: Pupils equal round and reactive to light, gs extra-ocular motions intact. Lids and lashes normal. Conjunctiva and sclera are non-icteric and not injected. Cornea within normal limits. Periorbital areas with no swelling, redness, or edema. ENT: Nares patent. No nasal discharge, no septal abnormalities noted. Tympanic membranes are normal and external auditory canals are clear. Oropharynx with no redness, swelling, or masses, exudates, or evidence of obstruction, uvula midline. Mucous membranes moist. Neck: Trachea midline, no thyromegaly or masses palpated, and no cervical lymphadenopathy. Supple, full range of motion without nuchal rigidity, or vertebral point tenderness. No Meningismus. Chest/axilla: Normal chest wall appearance and motion. Nontender with no deformity. No lesions are appreciated. Cardiovascular: Regular rate and rhythm with a normal S1 and S2. No gallops, murmurs, or rubs. Normal PMI, no JVD. No pulse deficits. Respiratory: Lungs have equal breath sounds bilaterally, clear to auscultation and percussion. No rales, rhonchi or wheezes noted. No increased work of breathing, no retractions or nasal flaring. Abdomen/GI: Soft, non-tender, with normal bowel sounds. No distension or tympany. No guarding or rebound. No evidence of tenderness throughout. Back: No spinal tenderness. No costovertebral tenderness. Full range of motion. Skin: Warm, dry with normal turgor. Normal color with no rashes, no lesions, and no evidence of cellulitis. MS/ Extremity: Pulses equal, no cyanosis. Neurovascular intact. Full, normal range of motion. Neuro: Awake and alert, GCS 15, oriented to person, place, time, and situation. Cranial nerves II-XII grossly intact. Motor strength 5/5 in all extremities. Sensory grossly intact. Cerebellar exam normal. Normal gait. 00:46 Constitutional: The patient appears alert, awake. Vital Signs: 00:30 BP 110 / 70; Pulse 80; Resp 16 S; Temp 98(O); Pulse Ox 100% on R/A; cc3 MDM: 00:43 Patient medically screened. gs 00:46 Data reviewed: vital signs, nurses notes. Response to treatment: the patient's symptoms gs have markedly improved after treatment, and as a result, I will discharge patient. Administered Medications: No medications were administered Disposition: 02/02/19 00:47 Discharged to Home. Impression: Headache. - Condition is Stable. - Discharge Instructions: General Headache Without Cause. - Medication Reconciliation Form, Thank You Letter, Antibiotic Education, Prescription Opioid Use form. - Follow up: Private Physician; When: 2 - 3 days; Reason: Re-evaluation by your physician. Signatures: Tom Petersen MD MD gs Cordel, Charlene cc3 Corrections: (The following items were deleted from the chart) 01:22 00:47 02/02/2019 00:47 Discharged to Home. Impression: Headache. Condition is Stable. cc3 Forms are Medication Reconciliation Form, Thank You Letter, Antibiotic Education, Prescription Opioid Use. Follow up: Private Physician; When: 2 - 3 days; Reason: Re-evaluation by your physician. gs
== END 2019-02-02 01:22 | disposition home or self-care (01) ==
LOC: ER 00:24
DX: R51 Headache (principal); F90.9 Attention-deficit hyperactivity disorder, unspecified type; F31.9 Bipolar disorder, unspecified
CPT/HCPCS: 99283

== ENCOUNTER 2019-02-02 18:47 | Emergency (ER) | payer SELFPAY ==
--- OUTSIDE RECORDS SUMMARY | 2019-02-02 18:50 | XMS REPORT ---
:1975 [facility] Address [address] [place] [address] Care Team Providers Name Role Phone Unavailable [...] code=Valproic Acid Level) 57.6 ug/mL(g) 50.0-100.0 Hemoglobin [id number] 09:36:00 Test Item Value Reference Range Comments Hemoglobin A1c (test 5.0 % 4.8-5.9 Non Diabetic 4.8-5.9%Diabetic code=Hemoglobin A1c) <7.0% CT Shoulder w/o Contrast [id number] 16:49:13Patient: BHUMIKA JONES Date/Time01/09/2019 16:14 CDTReason for [...] FSigned (Electronic Signature): 01/09/2019 4: 49 pmRPR [id number] 21:33:20 Test Item Value Reference Range Comments RPR Qual (test code=RPR Qual) Non-Reactive Non-Reactive Reactive Control (test code=Reactive Control) Reactive Weak Reactive Control (test code=Weak Reactive Weak Reactive Control) Non-Reactive Control (test code=Non-Reactive Non-Reactive Control) Lot # (test code=Lot #) [id number] Expiration Dt (test code=Expiration Dt) 04-23-2020 XR Shoulder Complete 2+ Views [id number] 15:41:25Patient: BHUMIKA JONES Date/Time2018 15:25 CDTReason for [...] ( Electronic Signature): 01/07/2019 3:41 pmThyroid Stimulating [id number] 03:07:04 Test Item Value Reference Range Comments TSH (test code=TSH) 9.650 mIU/mL 0.270-4.200 Lipid [id number] 03:07:03 Test Item Value Reference Range Comments Cholesterol Total (test 199 mg/dL 0-200 RISK OF HEART DISEASEPublished code=Cholesterol Total) by [place] Heart Association Analyte Optimal Borderline Increased RiskCHOL [...] is LDL/HDL Ratio=LDL Calc/HDL Chol HCG Qualitative [id number] 02:33:13 Test Item Value Reference Range Comments HCG, Serum Qual (test code=HCG, Serum Qual) Negative Lot # (test code=Lot #) [id number] Expiration Dt (test code=Expiration Dt) 2020-04-23 Neg Control (test code=Neg Control) Negative Pos Control (test code=Pos Control) Positive Internal QC (test code=Internal QC) Acceptable Drugs of Abuse Urine [id number] 18:58:11 Test Item Value Reference Range Comments [...] (test Negative Negative code=Cannabinoid Screen Ur) Alcohol [id number] 18:47:34 Test Item Value Reference Range Comments Ethanol Level (test <0.00 g/dL 0.00-0.01 Intoxicated 0.080 g/dL or more code=Ethanol Level) Ethanol Inst (test <0 code=Ethanol Inst) Comprehensive Metabolic [id number] 18:47:33 Test Item Value Reference Range Comments [...] (test code=A/G Ratio) 1.0 ratio Comprehensive Metabolic [id number] 18:47:33 Test Item Value Reference Range Comments [...] is not provided, and the patient is -[place], multiply by 1.212. If sex is not [...] the National Kidney Foundation, http://nkdep.nih.gov Comprehensive Metabolic [id number] 18:47:33 Test Item Value Reference Range Comments [...] is not provided, and the patient is -[place], multiply by 1.212. If sex is not [...] is not provided, and the patient is -[place], multiply by 1.212. If sex is not [...] Kidney Foundation, http://nkdep.nih.gov Complete Blood Count with [id number] 18:15:23 Test Item Value Reference Range Comments [...] x10 IPF (test code=IPF) 0 % Automated [id number] 18:15:23 Test Item Value Reference Range Comments Neutro Auto (test code=Neutro Auto) 42.1 % 36.0-70.0 Lymph Auto (test code=Lymph Auto) 40.0 % 12.0-44.0 [place] Auto (test code=[place] Auto) 12.2 % 0.0-11.0 Eos, Auto (test code=Eos, Auto) 4.9 % 0.0-7.0 Basophil Auto (test code=Basophil Auto) 0.6 % 0.0-2.0 Neutro Absolute (test code=Neutro Absolute) 2.2 x10 1.6-7.4 Lymph Absolute (test code=Lymph Absolute) 2.06 x10 .50-4.60 [place] Absolute (test code=[place] Absolute) .63 x10 .00-1.20 Eos Absolute (test code=Eos Absolute) 0.25 x10 0.00-0.74 Baso Absolute (test code=Baso Absolute) 0.03 x10 0.00-0.21 IG [id number] 18:15:23 Test Item Value Reference Range Comments IG (test code=IG) 0.2 % 0.0-5.0 IG Abs (test code=IG Abs) 0 x10
--- NOTE | 2019-02-02 20:03 | ER ---
Nurse's Notes [facility] [place] [place] Name: Sidra Hodges Age: 44 yrs Sex: Female : 1975 Arrival Date: 02/02/2019 Time: 18:52 Bed 18 Private MD: Diagnosis: Epileptic seizures related to external causes;Other chest pain;Bipolar disorder Presentation: 02/02 18:50 Presenting complaint: EMS states: i have this chest pain that started today, denies hj SOB; denies N/V;. Transition of care: patient was not received from another setting of care. Onset of symptoms was February 02, 2019. Risk Assessment: Do you want to hurt yourself or someone else? Patient reports no desire to harm self or others. Initial Sepsis Screen: Does the patient meet any 2 criteria? No. Patient's initial sepsis screen is negative. Does the patient have a suspected source of infection? No. Patient's initial sepsis screen is negative. Care prior to arrival: None. 18:50 Method Of Arrival: Ambulatory 18:50 Acuity: CARMITA 3 hj Historical: - Allergies: 18:51 NKA; hj - PMHx: 18:51 ADD/ADHD; Bipolar disorder; hemorrhoids; hj - PSHx: 18:51 Unable to obtain; hj - Family history:: not pertinent. - Ebola Screening: : Patient negative for fever greater than or equal to 101.5 degrees Fahrenheit, and additional compatible Ebola Virus Disease symptoms Patient denies exposure to infectious person Patient denies travel to an Ebola-affected area in the 21 days before illness onset. Screenin:20 Abuse screen: Denies threats or abuse. Denies injuries from another. Nutritional rr5 screening: No deficits noted. Tuberculosis screening: No symptoms or risk factors identified. Fall Risk None identified. Total Davidson Fall Scale indicates No Risk (0-24 pts). Assessment: 19:20 General: Appears in no apparent distress. comfortable, Behavior is calm, uncooperative, rr5 hold the orders for now,awaiting for ED provider to talk to patient.. Pain: Complains of pain in chest Pain does not radiate. Pain Quality of pain is described as aching, Pain began gradually, Is intermittent. Neuro: Level of Consciousness is awake, alert, Oriented to person, place, time, situation, Appropriate for age. Cardiovascular: Reports chest pain, Capillary refill < 3 seconds Patient's skin is warm and dry. Respiratory: Airway is patent Respiratory effort is even, unlabored, Respiratory pattern is regular, symmetrical. GI: No signs and/or symptoms were reported involving the gastrointestinal system. : No signs and/or symptoms were reported regarding the genitourinary system. EENT: No signs and/or symptoms were reported regarding the EENT system. Derm: Skin Skin temperature is warm. Musculoskeletal: Circulation, motion, and sensation intact. Capillary refill < 3 seconds. 19:45 Reassessment: Patient appears in no apparent distress at this time. ED provider talked rr5 to patient and will cancel all the other work up just laboratory to be carry out. 20:05 Reassessment: encourage to stay but patient opted to leave now and does not want to rr5 continue the management. ED provider aware. Vital Signs: 18:51 BP 113 / 57; Pulse 70; Resp 18; Temp 97.4(TE); Pulse Ox 99% on R/A; Weight 54.43 kg; hj Height 5 ft. 0 in. (152.40 cm); Pain 5/10; 19:30 BP 115 / 62; Pulse 75; Resp 16; Temp 97.5; Pulse Ox 99% ; rr5 18:51 Body Mass Index 23.44 (54.43 kg, 152.40 cm) ED Course: 18:51 Triage completed. hj 18:51 Arm band placed on right wrist. 18:52 Patient arrived in ED. rg4 18:55 Pascual Lundy MD is Attending Physician. ry 19:07 Aleks Field, GERONIMO is Primary Nurse. rr5 19:10 Patient has correct armband on for positive identification. Pulse ox on. NIBP on. rr5 19:20 Patient maintains SpO2 saturation greater than 95% on room air. rr5 19:34 Missed attempt(s): 22 gauge in right forearm. mt 20:00 No provider procedures requiring assistance completed. Patient did not have IV access rr5 during this emergency room visit. Administered Medications: No medications were administered Outcome: 20:05 Eloped after seeing physician Time discovered patient gone: February 02, 2019 at 20:05 rr5 20:05 unknown rr5 20:08 Patient left the ED. rr5 Signatures: Pascual Lundy MD MD cha Joaquin, Henry, RN Ania Jennings rg4 Evi Leiva mt, Raymond, RN RN rr5 Corrections: (The following items were deleted from the chart) 18:53 18:51 Pulse 70bpm; Resp 18bpm; Pulse Ox 99% RA; Temp 97.4F Temporal; 54.43 kg; Height 5 hj ft. 0 in.; BMI: 23.4; Pain 5/10; hj
--- NOTE | 2019-02-02 20:04 | EDPHYS ---
Physician Documentation [facility] Name: Sidra Hodges Age: 44 yrs Sex: Female : 1975 Arrival Date: 02/02/2019 Time: 18:52 Bed 18 Private MD: ED Physician Pascual Lundy HPI: 02/02 19:28 This 44 yrs old Female presents to ER via Ambulatory with complaints of Chest ry Pain. 19:28 The patient or guardian reports chest pain that is located primarily in the anterior ry chest wall, vague. Onset: today. The pain does not radiate. Associated signs and symptoms: The patient has no apparent associated signs or symptoms. The chest pain is described as vague, epigastric. Modifying factors: The symptoms are alleviated by nothing. the symptoms are aggravated by nothing. Historical: - Allergies: 18:51 NKA; hj - PMHx: 18:51 ADD/ADHD; Bipolar disorder; hemorrhoids; hj - PSHx: 18:51 Unable to obtain; hj - Family history:: not pertinent. - Ebola Screening: : Patient negative for fever greater than or equal to 101.5 degrees Fahrenheit, and additional compatible Ebola Virus Disease symptoms Patient denies exposure to infectious person Patient denies travel to an Ebola-affected area in the 21 days before illness onset. ROS: 19:32 Constitutional: Negative for fever, chills, and weight loss, Eyes: Negative for injury, ry pain, redness, and discharge, ENT: Negative for injury, pain, and discharge, Neck: Negative for injury, pain, and swelling, Respiratory: Negative for shortness of breath, cough, wheezing, and pleuritic chest pain, Abdomen/GI: Negative for abdominal pain, nausea, vomiting, diarrhea, and constipation, Back: Negative for injury and pain, : Negative for injury, bleeding, discharge, and swelling, MS/Extremity: Negative for injury and deformity, Skin: Negative for injury, rash, and discoloration, Psych: Negative for depression, anxiety, suicide ideation, homicidal ideation, and hallucinations, Allergy/Immunology: Negative for hives, rash, and allergies, Endocrine: Negative for neck swelling, polydipsia, polyuria, polyphagia, and marked weight changes, Hematologic/Lymphatic: Negative for swollen nodes, abnormal bleeding, and unusual bruising. 19:32 Abdomen/GI: Positive for abdominal pain. Exam: 19:32 Constitutional: This is a well developed, well nourished patient who is awake, alert, ry and in no acute distress. Head/Face: Normocephalic, atraumatic. Eyes: Pupils equal round and reactive to light, extra-ocular motions intact. Lids and lashes normal. Conjunctiva and sclera are non-icteric and not injected. Cornea within normal limits. Periorbital areas with no swelling, redness, or edema. ENT: Nares patent. No nasal discharge, no septal abnormalities noted. Tympanic membranes are normal and external auditory canals are clear. Oropharynx with no redness, swelling, or masses, exudates, or evidence of obstruction, uvula midline. Mucous membranes moist. Neck: Trachea midline, no thyromegaly or masses palpated, and no cervical lymphadenopathy. Supple, full range of motion without nuchal rigidity, or vertebral point tenderness. No Meningismus. Chest/axilla: Normal chest wall appearance and motion. Nontender with no deformity. No lesions are appreciated. Cardiovascular: Regular rate and rhythm with a normal S1 and S2. No gallops, murmurs, or rubs. Normal PMI, no JVD. No pulse deficits. Respiratory: Lungs have equal breath sounds bilaterally, clear to auscultation and percussion. No rales, rhonchi or wheezes noted. No increased work of breathing, no retractions or nasal flaring. Abdomen/GI: Soft, non-tender, with normal bowel sounds. No distension or tympany. No guarding or rebound. No evidence of tenderness throughout. Back: No spinal tenderness. No costovertebral tenderness. Full range of motion. Skin: Warm, dry with normal turgor. Normal color with no rashes, no lesions, and no evidence of cellulitis. MS/ Extremity: Pulses equal, no cyanosis. Neurovascular intact. Full, normal range of motion. Neuro: Awake and alert, GCS 15, oriented to person, place, time, and situation. Cranial nerves II-XII grossly intact. Motor strength 5/5 in all extremities. Sensory grossly intact. Cerebellar exam normal. Normal gait. Psych: Awake, alert, with orientation to person, place and time. Behavior, mood, and affect are within normal limits. 19:32 Musculoskeletal/extremity: DVT Exam: No signs of deep vein thrombosis. no pain, no swelling, no tenderness, negative Homans' sign noted on exam, no appreciated bluish discoloration, no erythema, no increased warmth. Vital Signs: 18:51 BP 113 / 57; Pulse 70; Resp 18; Temp 97.4(TE); Pulse Ox 99% on R/A; Weight 54.43 kg; hj Height 5 ft. 0 in. (152.40 cm); Pain 5/10; 19:30 BP 115 / 62; Pulse 75; Resp 16; Temp 97.5; Pulse Ox 99% ; rr5 18:51 Body Mass Index 23.44 (54.43 kg, 152.40 cm) hj MDM: 18:57 Patient medically screened. [facility] 19:33 Data reviewed: vital signs, nurses notes, lab test result(s), EKG, radiologic studies, [facility] plain films. 08 18:56 Order name: Basic Metabolic Panel [facility] 02/02 18:56 Order name: LFT's [facility] 02/02 18:56 Order name: Magnesium [facility] 02/02 18:56 Order name: NT PRO-BNP [facility] 02/02 18:56 Order name: PT-INR [facility] 02/02 18:56 Order name: Troponin (emerg Dept Use Only) [facility] 02/02 18:56 Order name: Cardiac monitoring [facility] 02/02 18:56 Order name: EKG - Nurse/Tech [facility] 02/02 18:57 Order name: Basic Metabolic Panel [facility] 02/02 19:28 Order name: Depakote [facility] 02/02 19:28 Order name: Tegretol Level [facility] 02/02 18:56 Order name: IV Saline Lock [facility] 02/02 18:56 Order name: Labs collected and sent [facility] 02/02 18:56 Order name: O2 Per Protocol; Complete Time: 19:35 [facility] 02/02 18:56 Order name: O2 Sat Monitoring; Complete Time: 19:35 [facility] Administered Medications: No medications were administered Disposition: 02/02/19 20:03 Patient left the facility after being seen by provider. Preliminary diagnosis are Epileptic seizures related to external causes, Other chest pain, Bipolar disorder. - Patient left due to unknown. - Condition is Fair. - Problem is chronic. - Symptoms have improved. Signatures: Dispatcher [employer] EDOR Kamron, Pascual, MD MD ry Darrel, Hi, RN RN hj Field, Aleks, RN RN rr5 Corrections: (The following items were deleted from the chart) 20:08 20:03 02/02/2019 20:03 Patient left the facility after being seen by provider. rr5 Preliminary diagnosis is Epileptic seizures related to external causes; Other chest pain; Bipolar disorder. Reason stated they are leaving due to unknown. Condition is Fair. Problem is chronic. Symptoms have improved. ry
[2019-02-02 20:17] LABS: Protime INR 0.97
[2019-02-02 20:33] LABS: ALT/SGPT 13 U/L (12-78); AST/SGOT 15 U/L (15-37); Albumin 2.6 g/dL (3.4-5.0); Alkaline Phosphatase 76 U/L (45-117); BUN Blood Urea Nitrogen 15 mg/dL (7-18); Bicarbonate 24 mmol/L (21-32); Bilirubin Direct < 0.1 mg/dL (0-0.2); Bilirubin Total 0.1 mg/dL (0.2-1.0); Glucose Level 89 mg/dL (74-106); Magnesium 1.9 mg/dL (1.8-2.4); NT PRO-BNP 285 pg/mL (<125); Potassium 3.6 mmol/L (3.5-5.1); Sodium Level 141 mmol/L (136-145); Troponin (Emerg Dept Use Only) < 0.02 ng/mL (0.0-0.045)
== END 2019-02-02 20:08 | disposition left against medical advice (07) ==
LOC: ER 18:47
DX: R07.9 Chest pain, unspecified (principal); F31.9 Bipolar disorder, unspecified; F90.9 Attention-deficit hyperactivity disorder, unspecified type; Z53.29 Procedure and treatment not carried out because of patient's decision for other reasons
CPT/HCPCS: 36415; 80048; 80076; 80156; 80164; 83735; 83880; 84484; 85610; 99284

== ENCOUNTER 2019-02-09 15:49 | Emergency (ER) | payer SELFPAY ==
--- OUTSIDE RECORDS SUMMARY | 2019-02-09 15:52 | XMS REPORT ---
:1975 [facility] Address [address] [place] [address] Care Team Providers Name Role Phone Unavailable [...] code=Valproic Acid Level) 57.6 ug/mL(g) 50.0-100.0 Hemoglobin [id number] 09:36:00 Test Item Value Reference Range Comments Hemoglobin A1c (test 5.0 % 4.8-5.9 Non Diabetic 4.8-5.9%Diabetic code=Hemoglobin A1c) <7.0% CT Shoulder w/o Contrast [id number] 16:49:13Patient: BHUMIKA JONES Date/Time01/09/2019 16:14 CDTReason for [...] FDictated DT/TM: 01/09/2019 4:43 pmSigned by: MD Farnk Adam FSigned (Electronic Signature): 01/09/2019 4: 49 pmRPR [id number] 21:33:20 Test Item Value Reference Range Comments RPR Qual (test code=RPR Qual) Non-Reactive Non-Reactive Reactive Control (test code=Reactive Control) Reactive Weak Reactive Control (test code=Weak Reactive Weak Reactive Control) Non-Reactive Control (test code=Non-Reactive Non-Reactive Control) Lot # (test code=Lot #) [id number] Expiration Dt (test code=Expiration Dt) 04-23-2020 XR Shoulder Complete 2+ Views [id number] 15:41:25Patient: BHUMIKA JONES Date/Time2018 15:25 CDTReason for [...] ( Electronic Signature): 01/07/2019 3:41 pmThyroid Stimulating [id number] 03:07:04 Test Item Value Reference Range Comments TSH (test code=TSH) 9.650 mIU/mL 0.270-4.200 Lipid [id number] 03:07:03 Test Item Value Reference Range Comments Cholesterol Total (test 199 mg/dL 0-200 RISK OF HEART DISEASEPublished code=Cholesterol Total) by [place] [employer] Analyte Optimal Borderline Increased RiskCHOL [...] is LDL/HDL Ratio=LDL Calc/HDL Chol HCG Qualitative [id number] 02:33:13 Test Item Value Reference Range Comments HCG, Serum Qual (test code=HCG, Serum Qual) Negative Lot # (test code=Lot #) [id number] Expiration Dt (test code=Expiration Dt) 2020-04-23 Neg Control (test code=Neg Control) Negative Pos Control (test code=Pos Control) Positive Internal QC (test code=Internal QC) Acceptable Drugs of Abuse Urine [id number] 18:58:11 Test Item Value Reference Range Comments [...] (test Negative Negative code=Cannabinoid Screen Ur) Alcohol [id number] 18:47:34 Test Item Value Reference Range Comments Ethanol Level (test <0.00 g/dL 0.00-0.01 Intoxicated 0.080 g/dL or more code=Ethanol Level) Ethanol Inst (test <0 code=Ethanol Inst) Comprehensive Metabolic [id number] 18:47:33 Test Item Value Reference Range Comments [...] (test code=A/G Ratio) 1.0 ratio Comprehensive Metabolic [id number] 18:47:33 Test Item Value Reference Range Comments [...] is not provided, and the patient is -[place], multiply by 1.212. If sex is not [...] the National Kidney Foundation, http://nkdep.nih.gov Comprehensive Metabolic [id number] 18:47:33 Test Item Value Reference Range Comments [...] is not provided, and the patient is -[place], multiply by 1.212. If sex is not [...] is not provided, and the patient is -[place], multiply by 1.212. If sex is not [...] Kidney Foundation, http://nkdep.nih.gov Complete Blood Count with [id number] 18:15:23 Test Item Value Reference Range Comments [...] x10 IPF (test code=IPF) 0 % Automated [id number] 18:15:23 Test Item Value Reference Range Comments Neutro Auto (test code=Neutro Auto) 42.1 % 36.0-70.0 Lymph Auto (test code=Lymph Auto) 40.0 % 12.0-44.0 [place] Auto (test code=[place] Auto) 12.2 % 0.0-11.0 Eos, Auto (test code=Eos, Auto) 4.9 % 0.0-7.0 Basophil Auto (test code=Basophil Auto) 0.6 % 0.0-2.0 Neutro Absolute (test code=Neutro Absolute) 2.2 x10 1.6-7.4 Lymph Absolute (test code=Lymph Absolute) 2.06 x10 .50-4.60 [place] Absolute (test code=[place] Absolute) .63 x10 .00-1.20 Eos Absolute (test code=Eos Absolute) 0.25 x10 0.00-0.74 Baso Absolute (test code=Baso Absolute) 0.03 x10 0.00-0.21 IG [id number] 18:15:23 Test Item Value Reference Range Comments IG (test code=IG) 0.2 % 0.0-5.0 IG Abs (test code=IG Abs) 0 x10
--- NOTE | 2019-02-09 16:32 | ER ---
Nurse's Notes [facility] Name: Sidra Hodges Age: 44 yrs Sex: Female : 1975 Arrival Date: 02/09/2019 Time: 15:54 Bed 13 Private MD: Diagnosis: Palpitations;Anxiety disorder, unspecified Presentation: 02/09 15:54 Presenting complaint: EMS states: GENERALIZED PAIN. Transition of care: patient was not bp received from another setting of care. Onset of symptoms is unknown. Risk Assessment: Do you want to hurt yourself or someone else? Patient reports no desire to harm self or others. Initial Sepsis Screen: Does the patient meet any 2 criteria? No. Patient's initial sepsis screen is negative. Does the patient have a suspected source of infection? No. Patient's initial sepsis screen is negative. Care prior to arrival: None. 15:54 Method Of Arrival: EMS: [facility] bp 15:54 Acuity: CARMITA 4 bp Triage Assessment: 15:56 General: Appears in no apparent distress. comfortable, Behavior is calm. Pain: bp Complains of pain in GENERALIZED. EENT: No deficits noted. Neuro: No deficits noted. Cardiovascular: No deficits noted. Respiratory: No deficits noted. GI: Abdomen is non-distended. : No signs and/or symptoms were reported regarding the genitourinary system. Derm: No deficits noted. Musculoskeletal: No deficits noted. 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 - Social history:: Smoking status: Patient/guardian denies using tobacco. - Ebola Screening: : No symptoms or risks identified at this time. - Family history:: not pertinent. - Hospitalizations: : No recent hospitalization is reported. Screenin:57 Abuse screen: Denies threats or abuse. Denies injuries from another. Nutritional bp screening: No deficits noted. Tuberculosis screening: No symptoms or risk factors identified. Fall Risk None identified. Assessment: 15:57 General: SEE TRIAGE NOTE. bp 16:39 Reassessment: PT D/C HOME AMBULATORY WITH BUS PASS, DX WITH ANXIETY. bp 16:40 Reassessment: Patient appears in no apparent distress at this time. Patient and/or iw family updated on plan of care and expected duration. Pain level reassessed. Patient is alert, oriented x 3, equal unlabored respirations, skin warm/dry/pink. Vital Signs: 16:00 BP 111 / 79; Pulse 82; Resp 16; Temp 98; Pulse Ox 98% ; bp 16:25 BP 118 / 72; Pulse 76; Resp 16; Pulse Ox 98% ; bp ED Course: 15:54 Patient arrived in ED. iw 15:54 Yong Banks MD is Attending Physician. rn 15:54 Jose Jama, GERONIMO is Primary Nurse. bp 15:55 Triage completed. bp 15:56 Arm band placed on. bp 15:57 Patient has correct armband on for positive identification. Bed in low position. Call bp light in reach. Side rails up X2. 16:09 EKG done, by audiovisual aids technician. reviewed by Yong Banks MD. 3 16:40 No provider procedures requiring assistance completed. Patient did not have IV access bp during this emergency room visit. Administered Medications: No medications were administered Outcome: 16:32 Discharge ordered by . rn 16:40 Discharged to home ambulatory. bp 16:40 Condition: stable 16:40 Discharge instructions given to patient, Instructed on discharge instructions, follow up and referral plans. Demonstrated understanding of instructions, follow-up care. 16:40 Patient left the ED. bp Signatures: Laila Foreman RN Yong Spring MD MD rn Peltier, Brian, Rica Harris RN 3
--- NOTE | 2019-02-09 16:33 | EDPHYS ---
Physician Documentation [facility] Name: Sidra Hodges Age: 44 yrs Sex: Female : 1975 Arrival Date: 02/09/2019 Time: 15:54 Bed 13 Private MD: ED Physician Yong Banks HPI: 02/09 15:59 This 44 yrs old Female presents to ER via EMS with complaints of "attack". rn 15:59 The patient presents with a history of heart racing. Onset: The symptoms/episode rn began/occurred this morning. Duration: The patient or guardian reports multiple episodes, that are intermittent. Modifying factors: The symptoms are aggravated by nothing. The symptoms are alleviated by nothing. Severity of symptoms: At their worst the symptoms were moderate in the emergency department the symptoms have improved. The patient has experienced similar episodes in the past, chronically. The patient has been recently seen by a physician:. Reports woke up today with "an attack", reports feels anxious, palpitations, no chest pain/sob. Improved now, seen several times in past for this, feels better now.. 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 - Social history:: Smoking status: Patient/guardian denies using tobacco. - Ebola Screening: : No symptoms or risks identified at this time. - Family history:: not pertinent. - Hospitalizations: : No recent hospitalization is reported. ROS: 15:59 Constitutional: Negative for fever, chills, and weight loss, Eyes: Negative for injury, rn pain, redness, and discharge, Neck: Negative for injury, pain, and swelling, Cardiovascular: Negative for chest pain, and edema, Respiratory: Negative for shortness of breath, cough, wheezing, and pleuritic chest pain, Abdomen/GI: Negative for abdominal pain, nausea, vomiting, diarrhea, and constipation, MS/Extremity: Negative for injury and deformity, Skin: Negative for injury, rash, and discoloration, Neuro: Negative for headache, weakness, numbness, tingling, and seizure. Exam: 15:59 Constitutional: This is a well developed, well nourished patient who is awake, alert, rn and in no acute distress. Sitting upright with legs crossed. Head/Face: Normocephalic, atraumatic. Eyes: Pupils equal round and reactive to light, extra-ocular motions intact. Lids and lashes normal. Conjunctiva and sclera are non-icteric and not injected. Cornea within normal limits. Periorbital areas with no swelling, redness, or edema. ENT: MMM Cardiovascular: Regular rate and rhythm. No pulse deficits. Respiratory: Lungs have equal breath sounds bilaterally, clear to auscultation. No increased work of breathing, no retractions or nasal flaring. Abdomen/GI: soft, non-tender MS/ Extremity: Pulses equal, no cyanosis. Neurovascular intact. Full, normal range of motion. Equal circumference. Neuro: Awake and alert, GCS 15, oriented to person, place, time, and situation. Cranial nerves II-XII grossly intact. Motor strength 5/5 in all extremities. Sensory grossly intact. Cerebellar exam normal. Normal gait. 16:30 ECG was reviewed by the Attending Physician. rn Vital Signs: 16:00 BP 111 / 79; Pulse 82; Resp 16; Temp 98; Pulse Ox 98% ; bp 16:25 BP 118 / 72; Pulse 76; Resp 16; Pulse Ox 98% ; bp MDM: 15:54 Patient medically screened. rn 16:31 Differential diagnosis: arrythmia, stress disorder. Data reviewed: vital signs, nurses rn notes, EKG, and as a result, I will discharge patient. Counseling: I had a detailed discussion with the patient and/or guardian regarding: the historical points, exam findings, and any diagnostic results supporting the discharge/admit diagnosis, the need for outpatient follow up, to return to the emergency department if symptoms worsen or persist or if there are any questions or concerns that arise at home. Special discussion: I discussed with the patient/guardian in detail that at this point there is no indication for admission to the hospital. It is understood, however, that if the symptoms persist or worsen the patient needs to return immediately for re-evaluation. 02/09 15:58 Order name: EKG; Complete Time: 15:58 rn 02/09 15:58 Order name: EKG - Nurse/Tech; Complete Time: 15:58 rn EC:30 Rate is 78 beats/min. Rhythm is regular. QRS [place] is Normal. OR interval is normal. QRS rn interval is normal. QT interval is normal. No Q waves. T waves are Normal. No ST changes noted. Clinical impression: NSR w/ Non-specific ST/T Changes. Interpreted by me. Reviewed by me. Administered Medications: No medications were administered Disposition: 02/09/19 16:32 Discharged to Home. Impression: Palpitations, Anxiety disorder, unspecified. - Condition is Stable. - Discharge Instructions: Panic Attacks, Palpitations. - Medication Reconciliation Form, Thank You Letter, Antibiotic Education, Prescription Opioid Use form. - Follow up: Private Physician; When: As needed; Reason: Recheck today's complaints, Re-evaluation by your physician. - Problem is chronic. - Symptoms have improved. Signatures: Yong Banks MD MD rn EvitaJose RN RN bp Corrections: (The following items were deleted from the chart) 16:40 16:32 02/09/2019 16:32 Discharged to Home. Impression: Palpitations; Anxiety disorder, bp unspecified. Condition is Stable. Forms are Medication Reconciliation Form, Thank You Letter, Antibiotic Education, Prescription Opioid Use. Follow up: Private Physician; When: As needed; Reason: Recheck today's complaints, Re-evaluation by your physician. Problem is chronic. Symptoms have improved. rn
--- NOTE | 2019-02-10 07:27 | EKG ---
Test Date: 2019-02-09 Test Time: 16:05:38 Hamper Maker: HECTOR MEASUREMENT RESULTS: Intervals: Rate: 78 OH: 138 QRSD: 82 QT: 344 QTc: 392 Holcomb: P: 45 OH: 138 QRS: 45 T: 37 INTERPRETIVE STATEMENTS: Normal sinus rhythm Nonspecific T wave abnormality Abnormal ECG Compared to ECG 01/31/2019 04:12:37 T-wave abnormality now present Sinus bradycardia no longer present ST (T wave) deviation no longer present Electronically Signed On 02-10-19 07:26:16 CDT by Flo Purvis
== END 2019-02-09 16:40 | disposition home or self-care (01) ==
LOC: ER 15:49
DX: F41.9 Anxiety disorder, unspecified (principal)
CPT/HCPCS: 93005; 99283

== ENCOUNTER 2019-02-16 18:30 | Emergency (ER) | payer SELFPAY ==
--- OUTSIDE RECORDS SUMMARY | 2019-02-16 19:05 | XMS REPORT ---
:1975 [facility] [address] [place] [address] Care Team Providers Name Role Phone Unavailable [...] code=Valproic Acid Level) 57.6 ug/mL(g) 50.0-100.0 Hemoglobin [id number] 09:36:00 Test Item Value Reference Range Comments Hemoglobin A1c (test 5.0 % 4.8-5.9 Non Diabetic 4.8-5.9%Diabetic code=Hemoglobin A1c) <7.0% CT Shoulder w/o Contrast [id number] 16:49:13Patient: BHUMIKA JONES Date/Time01/09/2019 16:14 CDTReason for [...] FSigned (Electronic Signature): 01/09/2019 4: 49 pmRPR [id number] 21:33:20 Test Item Value Reference Range Comments RPR Qual (test code=RPR Qual) Non-Reactive Non-Reactive Reactive Control (test code=Reactive Control) Reactive Weak Reactive Control (test code=Weak Reactive Weak Reactive Control) Non-Reactive Control (test code=Non-Reactive Non-Reactive Control) Lot # (test code=Lot #) [id number] Expiration Dt (test code=Expiration Dt) 04-23-2020 XR Shoulder Complete 2+ Views [id number] 15:41:25Patient: BHUMIKA JONES Date/Time2018 15:25 CDTReason for [...] ( Electronic Signature): 01/07/2019 3:41 pmThyroid Stimulating [id number] 03:07:04 Test Item Value Reference Range Comments TSH (test code=TSH) 9.650 mIU/mL 0.270-4.200 Lipid [id number] 03:07:03 Test Item Value Reference Range Comments Cholesterol Total (test 199 mg/dL 0-200 RISK OF HEART DISEASEPublished code=Cholesterol Total) by [place] [employer] Analyte Optimal Borderline Increased RiskCHOL [...] is LDL/HDL Ratio=LDL Calc/HDL Chol HCG Qualitative [id number] 02:33:13 Test Item Value Reference Range Comments HCG, Serum Qual (test code=HCG, Serum Qual) Negative Lot # (test code=Lot #) [id number] Expiration Dt (test code=Expiration Dt) 2020-04-23 Neg Control (test code=Neg Control) Negative Pos Control (test code=Pos Control) Positive Internal QC (test code=Internal QC) Acceptable Drugs of Abuse Urine [id number] 18:58:11 Test Item Value Reference Range Comments [...] (test Negative Negative code=Cannabinoid Screen Ur) Alcohol [id number] 18:47:34 Test Item Value Reference Range Comments Ethanol Level (test <0.00 g/dL 0.00-0.01 Intoxicated 0.080 g/dL or more code=Ethanol Level) Ethanol Inst (test <0 code=Ethanol Inst) Comprehensive Metabolic [id number] 18:47:33 Test Item Value Reference Range Comments [...] (test code=A/G Ratio) 1.0 ratio Comprehensive Metabolic [id number] 18:47:33 Test Item Value Reference Range Comments [...] is not provided, and the patient is -[place], multiply by 1.212. If sex is not [...] the National Kidney Foundation, http://nkdep.nih.gov Comprehensive Metabolic [id number] 18:47:33 Test Item Value Reference Range Comments [...] is not provided, and the patient is -[place], multiply by 1.212. If sex is not [...] is not provided, and the patient is -[place], multiply by 1.212. If sex is not [...] Kidney Foundation, http://nkdep.nih.gov Complete Blood Count with [id number] 18:15:23 Test Item Value Reference Range Comments [...] x10 IPF (test code=IPF) 0 % Automated [id number] 18:15:23 Test Item Value Reference Range Comments Neutro Auto (test code=Neutro Auto) 42.1 % 36.0-70.0 Lymph Auto (test code=Lymph Auto) 40.0 % 12.0-44.0 Fannin Auto (test code=Fannin Auto) 12.2 % 0.0-11.0 Eos, Auto (test code=Eos, Auto) 4.9 % 0.0-7.0 Basophil Auto (test code=Basophil Auto) 0.6 % 0.0-2.0 Neutro Absolute (test code=Neutro Absolute) 2.2 x10 1.6-7.4 Lymph Absolute (test code=Lymph Absolute) 2.06 x10 .50-4.60 Fannin Absolute (test code=Fannin Absolute) .63 x10 .00-1.20 Eos Absolute (test code=Eos Absolute) 0.25 x10 0.00-0.74 Baso Absolute (test code=Baso Absolute) 0.03 x10 0.00-0.21 IG [id number] 18:15:23 Test Item Value Reference Range Comments IG (test code=IG) 0.2 % 0.0-5.0 IG Abs (test code=IG Abs) 0 x10
[2019-02-16 19:34] LABS: Urine Bacteria <20 /HPF (<20); Urine Culture Reflex Order REFLEXED; Urine Mucus 1+ /HPF (NONE SEEN); Urine RBC <5 /HPF (NONE SEEN)
[2019-02-16 19:35] LABS: Urine Blood NEGATIVE (NEG); Urine Glucose NEGATIVE (NEG); Urine Protein NEGATIVE (NEG)
--- NOTE | 2019-02-16 20:00 | ER ---
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 Transition of care: patient was not received from another setting of care. Onset of symptoms was February 16, 2019. Risk Assessment: Do you want to hurt yourself or someone else? Patient reports no desire to harm self or others. Initial Sepsis Screen: Does the patient meet any 2 criteria? No. Patient's initial sepsis screen is negative. Does the patient have a suspected source of infection? No. Patient's initial sepsis screen is negative. Care prior to arrival: None. 18:40 Method Of Arrival: EMS: [facility] ph 18:40 Acuity: CARMITA 3 ph Historical: - Allergies: 18:45 NKA; ph - PMHx: 18:45 ADD/ADHD; Bipolar disorder; hemorrhoids; ph - Immunization history:: Adult Immunizations unknown. - Social history:: Smoking status: Patient/guardian denies using tobacco. - Ebola Screening: : No symptoms or risks identified at this time. Screenin:45 Abuse screen: Denies threats or abuse. Denies injuries from another. Nutritional ph screening: On. Tuberculosis screening: No symptoms or risk factors identified. Fall Risk None identified. Assessment: 19:07 General: Appears in no apparent distress. comfortable, Behavior is cooperative, ph appropriate for age. Pain: Complains of pain in xyphoid area and mid-sternal area. Neuro: Level of Consciousness is awake, alert, obeys commands, Oriented to person, place, time, situation. Cardiovascular: Reports chest pain, nausea, shortness of breath, Capillary refill < 3 seconds in bilateral fingers Patient's skin is warm and dry. Respiratory: Airway is patent Respiratory effort is even, unlabored, Respiratory pattern is regular, symmetrical. : Reports burning with urination, incontinence. Derm: Skin is intact, Skin is pink, warm \\T\\ dry. Musculoskeletal: Circulation, motion, and sensation intact. Range of motion: intact in all extremities. 19:30 Reassessment: Patient and/or family updated on plan of care and expected duration. Pain ea level reassessed. Patient is alert, oriented x 3, equal unlabored respirations, skin warm/dry/pink. 20:18 Reassessment: Patient and/or family updated on plan of care and expected duration. Pain ea level reassessed. Patient is alert, oriented x 3, equal unlabored respirations, skin warm/dry/pink. Discharge instruction given to patient, verbalized the understanding of instruction. No s/s of pain or discomfort noted at this time. Pt discharged to [facility], left ambulatory, awaiting on family for transportation. Vital Signs: 18:46 Temp 97.8; ph 19:06 BP 97 / 68; Pulse 81; Resp 18; Pulse Ox 98% on R/A; ph 20:00 BP 101 / 63; Pulse 80; Resp 18; Pulse Ox 100% ; ea ED Course: 18:33 Patient arrived in ED. iw 18:36 Pascual Lopez PA is PHCP. cp 18:36 Pascual Lundy MD is Attending Physician. cp 18:40 Mariza Johnson, GERONIMO is Primary Nurse. ph 18:44 Triage completed. ph 18:45 Patient has correct armband on for positive identification. Bed in low position. Call ph light in reach. Side rails up X 1. Pulse ox on. NIBP on. Door closed. Noise minimized. Warm blanket given. 18:46 Arm band placed on Patient placed in an exam room, on a stretcher. ph 20:19 No provider procedures requiring assistance completed. Patient did not have IV access ea during this emergency room visit. Administered Medications: No medications were administered Outcome: 20:00 Discharge ordered by . cp 20:19 Discharged to [facility] awaiting on family for transportation ea 20:19 Condition: stable 20:19 Discharge instructions given to patient, Instructed on discharge instructions, follow up and referral plans. medication usage, Demonstrated understanding of instructions, follow-up care, medications, Prescriptions given X 2. 20:20 Patient left the ED. ea Signatures: Laila Foreman, RN RN iw Mariza Johnson RN RN ph Pascual Lopez PA PA cp Antunez, Elena, RN RN ea Corrections: (The following items were deleted from the chart) 19:09 19:06 BP ; [facility]
--- NOTE | 2019-02-16 20:01 | EDPHYS ---
Physician Documentation [facility] Name: Sidra Hodges Age: 44 yrs Sex: Female : 1975 Arrival Date: 02/16/2019 Time: 18:33 Bed 13 Private MD: ED Physician Pascual Lundy HPI: 02/16 19:00 This 44 yrs old Female presents to ER via EMS with complaints of painful cp urination. 19:00 The patient presents with urinary symptoms, dysuria. cp 19:00 Onset: The symptoms/episode began/occurred today. Associated signs and symptoms: cp Pertinent positives: chest pain, Pertinent negatives: constipation, diarrhea, fever, vaginal bleeding, vomiting. Severity of symptoms: in the emergency department the symptoms are unchanged, despite home interventions. 19:00 Patient reports stopping seizure meds, Trileptal and Depakote, 5 days ago because she cp thought recently prescribed Hydroxyzine was replacing meds for seizures. Patient reports noticing shortness of breath, chest pain and shakiness after taking hydroxyzine and having 1 seizure per day for past 4 days. Historical: - Allergies: 18:45 NKA; ph - PMHx: 18:45 ADD/ADHD; Bipolar disorder; hemorrhoids; ph - Immunization history:: Adult Immunizations unknown. - Social history:: Smoking status: Patient/guardian denies using tobacco. - Ebola Screening: : No symptoms or risks identified at this time. ROS: 19:05 Constitutional: Negative for body aches, chills, fever, poor PO intake. cp 19:05 Eyes: Negative for injury, pain, redness, and discharge. cp 19:05 ENT: Negative for drainage from ear(s), ear pain, sore throat, difficulty swallowing, difficulty handling secretions. 19:05 Cardiovascular: Positive for chest pain, Negative for edema, palpitations. 19:05 Respiratory: Negative for cough, shortness of breath, wheezing. 19:05 Abdomen/GI: Negative for abdominal pain, nausea and vomiting, diarrhea, constipation, anorexia, black/tarry stool, rectal bleeding. 19:05 : Positive for burning with urination, Negative for flank pain, vaginal bleeding, vaginal discharge. 19:05 Skin: Negative for rash. 19:05 Neuro: Negative for altered mental status, headache, weakness. 19:05 All other systems are negative. Exam: 19:15 ECG was reviewed by the Attending Physician. cp 19:17 Constitutional: The patient appears in no acute distress, alert, awake, comfortable, cp non-diaphoretic, non-toxic, well developed, well nourished, walking around exam room in no acute distress 19:17 Head/Face: Normocephalic, atraumatic. cp 19:17 Eyes: Periorbital structures: appear normal, Conjunctiva: normal, no exudate, no injection, Sclera: no appreciated abnormality, Lids and lashes: appear normal, bilaterally. 19:17 ENT: External ear(s): are unremarkable, Nose: is normal, Mouth: is normal, Posterior pharynx: is normal, airway is patent, no erythema, no exudate. 19:17 Chest/axilla: Inspection: normal, Palpation: is normal, no crepitus, no tenderness. 19:17 Cardiovascular: Rate: normal, Rhythm: regular, Edema: is not appreciated, JVD: is not appreciated. 19:17 Respiratory: the patient does not display signs of respiratory distress, Respirations: normal, no use of accessory muscles, no retractions, no splinting, no tachypnea, labored breathing, is not present, Breath sounds: are clear throughout, no decreased breath sounds, no stridor, no wheezing. 19:17 Abdomen/GI: Inspection: abdomen appears normal, Palpation: abdomen is soft and non-tender, in all quadrants. 19:17 Back: CVA tenderness, is absent. 19:17 Neuro: Orientation: to person, place \T\ time. Mentation: is normal, Motor: moves all fours, strength is normal. Vital Signs: 18:46 Temp 97.8; ph 19:06 BP 97 / 68; Pulse 81; Resp 18; Pulse Ox 98% on R/A; ph 20:00 BP 101 / 63; Pulse 80; Resp 18; Pulse Ox 100% ; ea MDM: 18:38 Patient medically screened. ry 19:54 Data reviewed: vital signs, nurses notes, lab test result(s), urinalysis, EKG. Test cp interpretation: by ED physician or midlevel provider: ECG. 19:55 ED course: VSS. EKG reviewed and negative for acute findings. Discussed medications and cp need to take seizure meds daily. Patient instructed to resume oral Depakote and Trileptal as prescribed. 02/16 19:00 Order name: Urine Microscopic Only; Complete Time: 19:42 cp 02/16 19:42 Interpretation: Normal except: UWBC 5-10. 02/16 19:12 Order name: Urine Dipstick--Ancillary (enter results); Complete Time: 19:42 ag4 02/16 19:42 Interpretation: Normal except: UESTR TRACE. 02/16 18:55 Order name: EKG; Complete Time: 18:56 cp 02/16 18:55 Order name: EKG - Nurse/Tech; Complete Time: 19:20 cp 02/16 18:55 Order name: Urine Dipstick-Ancillary (obtain specimen); Complete Time: 19:09 cp 02/16 19:44 Order name: Urine Culture [facility] 02/16 18:55 Order name: Urine Test (obtain specimen); Complete Time: 19:08 cp EC:15 Rate is 76 beats/min. Rhythm is regular. MI interval is normal. QRS interval is normal. cp QT interval is normal. Clinical impression: Abnormal EKG without significant change. Interpreted by me. Reviewed by me. Administered Medications: No medications were administered Disposition: 02/16/19 20:00 Discharged to Home. Impression: Urinary tract infection, site not specified, Patient's other noncompliance with medication regimen - seizure medications. - Condition is Stable. - Discharge Instructions: Urinary Tract Infection, Adult. - Prescriptions for Augmentin 875- 125 mg Oral Tablet - take 1 tablet by ORAL route every 12 hours for 7 days; 14 tablet. Pyridium 200 mg Oral Tablet - take 1 tablet by ORAL route every 8 hours for 3 days; 6 tablet. - Medication Reconciliation Form, Thank You Letter, Antibiotic Education, Prescription Opioid Use form. - Follow up: Private Physician; When: 1 - 2 days; Reason: Recheck today's complaints. - Problem is new. - Symptoms have improved. Addendum: 02/17/2019 20:38 Co-signature as Attending Physician, Pascual Lundy MD I agree with the assessment and c lee plan of care. Signatures: Dispatcher [employer] Pascual Gamble MD MD cha Hall, Patricia RN RN Pascual Walter PA PA Kesha Alonso RN RN chidi Corrections: (The following items were deleted from the chart) 02/16 20:20 20:00 02/16/2019 20:00 Discharged to Home. Impression: Urinary tract infection, site ea not specified; Patient's other noncompliance with medication regimen - seizure medications. Condition is Stable. Forms are Medication Reconciliation Form, Thank You Letter, Antibiotic Education, Prescription Opioid Use. Follow up: Private Physician; When: 1 - 2 days; Reason: Recheck today's complaints. Problem is new. Symptoms have improved. cp 02/17 18:49 02/16 19:00 Patient also reports stopping seizure meds, Trileptal and Depakote, 5 days cp ago due to confusion that Hydralazine medication was replacing meds as new seizure medication. Patient reports having 1 seizure per day for past 4 days. cp
--- NOTE | 2019-02-17 11:21 | EKG ---
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
== END 2019-02-16 20:20 | disposition home or self-care (01) ==
LOC: ER 18:30
DX: N39.0 Urinary tract infection, site not specified (principal); Z91.14 Patient's other noncompliance with medication regimen; G40.909 Epilepsy, unspecified, not intractable, without status epilepticus
CPT/HCPCS: 81003; 81015; 87086; 87088; 93005; 99283

== ENCOUNTER 2019-02-20 20:34 | Emergency (ER) | payer SELFPAY ==
[2019-02-20] MEDS ORDERED: NA CHLORIDE 0.9% 1,000 ML ONE (21:15)
[2019-02-20] MEDS ORDERED: ONDANSETRON 4 MG/2 ML VIAL ONE (21:15)
[2019-02-20 22:09] LABS: ALT/SGPT 15 U/L (12-78); AST/SGOT 14 U/L (15-37); Alkaline Phosphatase 58 U/L (45-117); BUN Blood Urea Nitrogen 21 mg/dL (7-18); Bicarbonate 26 mmol/L (21-32); Bilirubin Direct < 0.1 mg/dL (0-0.2); Bilirubin Total 0.2 mg/dL (0.2-1.0); Glucose Level 116 mg/dL (74-106); Lipase 84 U/L (73-393); Potassium 3.7 mmol/L (3.5-5.1); Protein, Total 7.7 g/dL (6.4-8.2); Sodium Level 134 mmol/L (136-145)
[2019-02-20 22:26] LABS: Absolute Lymphocytes (CBC) 1.3 K/uL (0.7-4.9); Basophils % 0.7 % (0-1.3); Hematocrit 28.5 % (36.0-45.0); Lymphocytes % 21.9 % (15.3-44.8); MPV 8.6 fL (7.6-11.3); RBC Red Blood Cell Count 3.47 M/uL (3.86-4.86)
[2019-02-20 23:23] LABS: Urine Bacteria <20 /HPF (<20); Urine Culture Reflex Order REFLEXED; Urine RBC <5 /HPF (NONE SEEN)
[2019-02-21] MEDS ORDERED: HYDROCODONE/APAP 5/325 MG TAB ONE (00:12)
--- NOTE | 2019-02-21 01:51 | ER ---
Nurse's Notes [facility] Name: Sidra Hodges Age: 44 yrs Sex: Female : 1975 Arrival Date: 02/20/2019 Time: 20:36 Bed 13 Private MD: Diagnosis: Cholelithiasis;Vomiting, unspecified Presentation: 02/20 20:44 Presenting complaint: Patient states: Vomiting since earlier today and she just feels aj1 bad. Patient states that she also had 3 seizures today. Reports generalized body aches. Transition of care: patient was not received from another setting of care. Onset of symptoms was February 20, 2019. Risk Assessment: Do you want to hurt yourself or someone else? Patient reports no desire to harm self or others. Initial Sepsis Screen: Does the patient meet any 2 criteria? No. Patient's initial sepsis screen is negative. Does the patient have a suspected source of infection? No. Patient's initial sepsis screen is negative. Care prior to arrival: None. 20:44 Method Of Arrival: Wheelchair aj1 20:44 Acuity: CARMITA 3 aj1 Triage Assessment: 20:49 General: Appears in no apparent distress. uncomfortable, Behavior is calm, cooperative, aj1 appropriate for age. Pain: Pain currently is 10 out of 10 on a pain scale. Neuro: Level of Consciousness is awake, alert, obeys commands. Cardiovascular: Patient's skin is warm and dry. Respiratory: Airway is patent Respiratory effort is even, unlabored, Respiratory pattern is regular, symmetrical. GI: Reports nausea, vomiting. MANAGER PHILOSOPHY: 20:49 LMP N/A - Post-menopause aj1 Historical: - Allergies: 20:49 NKA; aj1 - PMHx: 20:49 ADD/ADHD; Bipolar disorder; hemorrhoids; Seizures; aj1 - Immunization history:: Flu vaccine is not up to date. - Social history:: Smoking status: Patient/guardian denies using tobacco. - Ebola Screening: : Patient denies travel to an Ebola-affected area in the 21 days before illness onset. - Family history:: not pertinent. - Hospitalizations: : No recent hospitalization is reported. Screenin:51 Abuse screen: Denies threats or abuse. Denies injuries from another. Nutritional cc3 screening: No deficits noted. Tuberculosis screening: No symptoms or risk factors identified. Fall Risk Ambulatory Aid- None/Bed Rest/Nurse Assist (0 pts). Gait- Normal/Bed Rest/Wheelchair (0 pts) Mental Status- Oriented to own ability (0 pts). Assessment: 20:51 General: Appears in no apparent distress. uncomfortable, Behavior is calm, cooperative, cc3 appropriate for age. Pain: Denies pain. Neuro: Level of Consciousness is awake, alert, obeys commands, Oriented to person, place, time, situation, Appropriate for age. Cardiovascular: Denies chest pain, Capillary refill < 3 seconds Patient's skin is warm and dry. Respiratory: Airway is patent Respiratory effort is even, unlabored, Respiratory pattern is regular, symmetrical. GI: Abdomen is round non-distended. : No signs and/or symptoms were reported regarding the genitourinary system. EENT: No signs and/or symptoms were reported regarding the EENT system. Derm: Skin is intact, is healthy with good turgor, Skin is pink, warm \T\ dry. normal. Musculoskeletal: Circulation, motion, and sensation intact. Range of motion: intact in all extremities. 21:56 Reassessment: Patient appears in no apparent distress at this time. Patient and/or cc3 family updated on plan of care and expected duration. Pain level reassessed. Patient is alert, oriented x 3, equal unlabored respirations, skin warm/dry/pink. GERONIMO Fink received a call from ED delivery clerk Shadia that patient is for repeat CBC. Called lab at 1108 to do repeat CBC and the agronomy technician said she'll send someone to do it. 22:15 Reassessment: Patient appears in no apparent distress at this time. Patient and/or cc3 family updated on plan of care and expected duration. Pain level reassessed. Patient is alert, oriented x 3, equal unlabored respirations, skin warm/dry/pink. air sealing technician came to do the repeat CBC. 22:40 Reassessment: Patient appears in no apparent distress at this time. Patient and/or cc3 family updated on plan of care and expected duration. Pain level reassessed. Patient is alert, oriented x 3, equal unlabored respirations, skin warm/dry/pink. Patient taken by location and measurement technician to their department by wheelchair. 23:00 Reassessment: Patient appears in no apparent distress at this time. Patient and/or cc3 family updated on plan of care and expected duration. Pain level reassessed. Patient is alert, oriented x 3, equal unlabored respirations, skin warm/dry/pink. Patient came back from CT scan department, awaiting result. Patient denies pain at this time. Patient states feeling better. 02/21 00:27 Reassessment: Patient appears in no apparent distress at this time. Patient and/or cc3 family updated on plan of care and expected duration. Pain level reassessed. Patient is alert, oriented x 3, equal unlabored respirations, skin warm/dry/pink. 01:40 Reassessment: Patient appears in no apparent distress at this time. Patient and/or cc3 family updated on plan of care and expected duration. Pain level reassessed. Patient is alert, oriented x 3, equal unlabored respirations, skin warm/dry/pink. Dr. Banks discharged the patient home with prescriptions given. IV cannula removed and patient left ER vitally stable by wheelchair escorted by me and the patient's relatives. No valuables left in the patient's room. Patient denies pain at this time. Patient states feeling better. Patient states symptoms have improved. Vital Signs: 02/20 20:49 BP 142 / 93; Pulse 65; Resp 18; Temp 97.0; Pulse Ox 100% on R/A; Pain 10/10; aj1 21:40 BP 130 / 83; Pulse 70; Resp 16 S; Pulse Ox 99% on R/A; cc3 22:30 BP 148 / 78; Pulse 88; Resp 18 S; Pulse Ox 100% on R/A; cc3 23:21 BP 137 / 67; Pulse 69; Resp 17 S; Pulse Ox 100% on R/A; cc3 02/21 00:28 BP 144 / 72; Pulse 60; Resp 17 S; Pulse Ox 100% on R/A; cc3 01:30 BP 120 / 67; Pulse 63; Resp 16 S; Pulse Ox 99% on R/A; cc3 ED Course: 02/20 20:36 Patient arrived in ED. ag3 20:48 Triage completed. aj1 20:49 Arm band placed on Patient placed in an exam room. aj1 20:51 Yong Banks MD is Attending Physician. rn 20:51 Madeleine Solis is Primary Nurse. cc3 20:51 Patient has correct armband on for positive identification. Placed in gown. Bed in low cc3 position. Call light in reach. Side rails up X2. Adult w/ patient. Pulse ox on. NIBP on. 21:08 Radiology exam delayed due to lab results not completed at this time. (BUN/Creatinine). 2 21:30 Inserted saline lock: 22 gauge in right forearm, using aseptic technique. Blood cc3 collected. 21:43 Radiology exam delayed due to lab results not completed at this time. (BUN/Creatinine). 2 23:08 CT Abd/Pelvis - IV Contrast Only In Process Unspecified. EDNJ 02/21 01:01 Hi Perez MD is Referral Physician. rn 01:40 No provider procedures requiring assistance completed. IV discontinued, intact, cc3 bleeding controlled, No redness/swelling at site. Pressure dressing applied. Administered Medications: 02/20 21:30 Drug: Zofran 4 mg Route: IVP; Site: right forearm; cc3 22:00 Follow up: Response: No adverse reaction; Nausea is decreased cc3 21:30 Drug: NS 0.9% 1000 ml Route: IV; Rate: 1000 ml; Site: right forearm; cc3 23:20 Follow up: Response: No adverse reaction; IV Status: Completed infusion; IV Intake: cc3 1000ml 02/21 00:13 Drug: [place] 5 mg-325 mg 1 tabs Route: PO; cc3 01:00 Follow up: Response: No adverse reaction; Pain is decreased; RASS: Alert and Calm (0) cc3 Intake: 02/20 23:20 IV: 1000ml; Total: 1000ml. cc3 Outcome: 02/21 01:01 Discharge ordered by . rn 01:40 Discharged to home via wheelchair, with family. cc3 01:40 Condition: stable 01:40 Discharge instructions given to patient, family, Instructed on discharge instructions, follow up and referral plans. medication usage, Demonstrated understanding of instructions, follow-up care, medications, Prescriptions given X 2. 01:48 Patient left the ED. cc3 Signatures: Dispatcher [employer] EDNJ Nyla Luz RN RN aj1 Nieto, Roman, MD MD rn McGuire, Victoria 2 Madeleine Solis cc3 Madhavi Hughes 3 Corrections: (The following items were deleted from the chart) 02/20 23:56 21:56 Reassessment: GERONIMO Fink received a call from JENELLE kaiser Shadia that patient is for cc3 repeat CBC. Called lab at 1108 to do repeat CBC and the agronomy technician said she'll send someone to do it. cc3
--- NOTE | 2019-02-21 01:53 | EDPHYS ---
Physician Documentation [facility] Name: Sidra Hodges Age: 44 yrs Sex: Female : 1975 Arrival Date: 02/20/2019 Time: 20:36 Bed 13 Private MD: ED Physician Yong Banks HPI: 02/20 21:33 This 44 yrs old Female presents to ER via Wheelchair with complaints of rn Vomiting. 21:33 The patient presents to the emergency department with nausea, vomiting, abdominal pain. rn Onset: The symptoms/episode began/occurred this morning. Possible causes: unknown. The symptoms are aggravated by nothing. The symptoms are alleviated by nothing. Severity of symptoms: At their worst the symptoms were mild in the emergency department the symptoms are unchanged. The patient has not experienced similar symptoms in the past. The patient has not recently seen a physician. 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 - Social history:: Smoking status: Patient/guardian denies using tobacco. - Ebola Screening: : Patient denies travel to an Ebola-affected area in the 21 days before illness onset. - Family history:: not pertinent. - Hospitalizations: : No recent hospitalization is reported. ROS: 21:33 Constitutional: Negative for fever, chills, and weight loss, Eyes: Negative for injury, rn pain, redness, and discharge, Neck: Negative for injury, pain, and swelling, Cardiovascular: Negative for chest pain, palpitations, and edema, Respiratory: Negative for shortness of breath, cough, wheezing, and pleuritic chest pain, Abdomen/GI: + abd pain and nausea/vomiting, + diarrhea, non-bloody MS/Extremity: Negative for injury and deformity, Skin: Negative for injury, rash, and discoloration, Neuro: Negative for headache, weakness, numbness, tingling, and seizure. Exam: 21:33 Constitutional: This is a well developed, well nourished patient who is awake, alert, rn and in no acute distress. Holding emesis bag. Head/Face: Normocephalic, atraumatic. Eyes: Pupils equal round and reactive to light, extra-ocular motions intact. Lids and lashes normal. Conjunctiva and sclera are non-icteric and not injected. Cornea within normal limits. Periorbital areas with no swelling, redness, or edema. ENT: MMM Cardiovascular: Regular rate and rhythm. No pulse deficits. Respiratory: No increased work of breathing, no retractions or nasal flaring. Abdomen/GI: soft, mild jackelin-umbilical tenderness MS/ Extremity: Pulses equal, no cyanosis. Neurovascular intact. Full, normal range of motion. Equal circumference. Neuro: Awake and alert, GCS 15, oriented to person, place, time, and situation. Cranial nerves II-XII grossly intact. Motor strength 5/5 in all extremities. Sensory grossly intact. Vital Signs: 20:49 BP 142 / 93; Pulse 65; Resp 18; Temp 97.0; Pulse Ox 100% on R/A; Pain 10/10; aj1 21:40 BP 130 / 83; Pulse 70; Resp 16 S; Pulse Ox 99% on R/A; cc3 22:30 BP 148 / 78; Pulse 88; Resp 18 S; Pulse Ox 100% on R/A; cc3 23:21 BP 137 / 67; Pulse 69; Resp 17 S; Pulse Ox 100% on R/A; cc3 02/21 00:28 BP 144 / 72; Pulse 60; Resp 17 S; Pulse Ox 100% on R/A; cc3 01:30 BP 120 / 67; Pulse 63; Resp 16 S; Pulse Ox 99% on R/A; cc3 MDM: 02/20 20:51 Patient medically screened. rn 02/21 00:04 Differential diagnosis: Nonspecific abd pain, gastritis, cholecystitis, pancreatitis, rn viral gastroenteritis, gastroenteritis. Data reviewed: vital signs, nurses notes, lab test result(s), radiologic studies, CT scan, and as a result, I will discharge patient. Counseling: I had a detailed discussion with the patient and/or guardian regarding: the historical points, exam findings, and any diagnostic results supporting the discharge/admit diagnosis, lab results, radiology results, the need for outpatient follow up, to return to the emergency department if symptoms worsen or persist or if there are any questions or concerns that arise at home. Response to treatment: the patient's symptoms have markedly improved after treatment, and as a result, I will discharge patient. Special discussion: Based on the patient's Hx, exam, and Dx evaluation, there is no indication for emergent surgery or inpatient Tx. It is understood by the patient/guardian that if the Sx's persist or worsen they need to return immediately for re-evaluation. I discussed with the patient/guardian in detail that at this point there is no indication for admission to the hospital. It is understood, however, that if the symptoms persist or worsen the patient needs to return immediately for re-evaluation. ED course: CT abdomen shows distended gallbladder with stones, which she has had before, no acute infection or PCF, normal WBC and LFTs/lipase. Patient sleeping without pain meds, and now denies abd pain, neg verdin. Now asks for pain meds for headache, and states has to go to bathroom, feels like is going to have diarrhea. Will dc home with pain meds, nausea meds, and return precautions. 02/20 20:57 Order name: Basic Metabolic Panel; Complete Time: 22:27 02/20 20:57 Order name: CBC with Diff; Complete Time: 22: rn 02/20 20:57 Order name: Creatinine for Radiology; Complete Time: 22:27 rn 02/20 20:57 Order name: Hepatic Function; Complete Time: 22:27 rn 02/20 20:57 Order name: Lipase; Complete Time: 22:27 rn 02/20 20:57 Order name: Urine Microscopic Only; Complete Time: 23:25 02/20 20:57 Order name: IV Saline Lock; Complete Time: 21:41 rn 02/20 20:57 Order name: Labs collected and sent; Complete Time: 21:41 rn 02/20 20:57 Order name: Urine Test (obtain specimen); Complete Time: 23:20 rn 02/20 20:57 Order name: CT Abd/Pelvis - IV Contrast Only 02/20 23:25 Order name: Urine Culture EDCA 02/20 20:57 Order name: Urine Dipstick-Ancillary (obtain specimen); Complete Time: 23:20 rn Administered Medications: 02/20 21:30 Drug: Zofran 4 mg Route: IVP; Site: right forearm; cc3 22:00 Follow up: Response: No adverse reaction; Nausea is decreased cc3 21:30 Drug: NS 0.9% 1000 ml Route: IV; Rate: 1000 ml; Site: right forearm; cc3 23:20 Follow up: Response: No adverse reaction; IV Status: Completed infusion; IV Intake: cc3 1000ml 02/21 00:13 Drug: [place] 5 mg-325 mg 1 tabs Route: PO; cc3 01:00 Follow up: Response: No adverse reaction; Pain is decreased; RASS: Alert and Calm (0) cc3 Disposition: 02/21/19 01:01 Discharged to Home. Impression: Cholelithiasis, Vomiting, unspecified. - Condition is Stable. - Discharge Instructions: Nausea and Vomiting, Adult, Cholelithiasis. - Prescriptions for Zofran ODT 4 mg Oral tablet,disintegrating - place 1 tablet by TRANSLINGUAL route every 8 hours As needed; 20 tablet. Tylenol- Codeine #3 300-30 mg Oral Tablet - take 1 tablet by ORAL route every 6 hours As needed; 20 tablet. - Medication Reconciliation Form, Thank You Letter, Antibiotic Education, Prescription Opioid Use form. - Follow up: Hi Perez MD; When: As needed; Reason: Recheck today's complaints, Re-evaluation by your physician. - Problem is new. - Symptoms have improved. Signatures: Dispatcher [employer] EDNyla Rashid RN RN aj1 Yong Banks MD MD rn Cordel, Charlene cc3 Corrections: (The following items were deleted from the chart) 01:48 01:01 02/21/2019 01:01 Discharged to Home. Impression: Cholelithiasis; Vomiting, cc3 unspecified. Condition is Stable. Forms are Medication Reconciliation Form, Thank You Letter, Antibiotic Education, Prescription Opioid Use. Follow up: Hi Perez; When: As needed; Reason: Recheck today's complaints, Re-evaluation by your physician. Problem is new. Symptoms have improved. rn
--- NOTE | 2019-02-23 12:09 | RAD REPORT ---
EXAM DESCRIPTION: CT - Abdomen Pelvis W Contrast - 02/21/2019 12:22 am CLINICAL HISTORY: The patient is 44 years old and is Female; Abd pain;Nausea / vomiting TECHNIQUE: Axial computed tomography images of the abdomen and pelvis with intravenous contrast. S agittal and coronal reformatted images were created and reviewed. This CT exam was performed using one or more of the following dose reduction techniques: automated exposure control, adjustment of t he mA and/or kV according to patient size, and/or use of iterative reconstruction technique. COMPARISON: CT of the abdomen and pelvis January 22, 2019. Minimal opacity within the medial aspect of the right lower lobe is again noted. FINDINGS: LUNG BASES: Unremarkable. No mass. No consolidation. ABDOMEN: LIVER: Unremarkable. No mass. GALLBLADDER AND BILE DUCTS: The gallbladder is distended with several calcified gallstones prese nt. There is no ductal dilatation. PANCREAS: No ductal dilation. No mass. SPLEEN: A splenule is noted within the left upper quadrant. The spleen is unremarkable. ADRENALS: Unremarkable. No mass. KIDNEYS AND URETERS: Unremarkable. No solid mass. No hydronephrosis. STOMACH AND BOWEL: The stomach is decompressed. The small bowel is normal in caliber. Stool is p resent throughout colon. There is no mucosal thickening or evidence of bowel obstruction. PELVIS: APPENDIX: The appendix is normal in caliber without surrounding inflammation. BLADDER: The bladder is not well distended. Diffuse bladder wall thickening is noted. REPRODUCTIVE: Unremarkable as visualized. ABDOMEN and PELVIS: INTRAPERITONEAL SPACE: Unremarkable. No free air. No significant fluid collection. BONES/JOINTS: No acute fracture. SOFT TISSUES: The soft tissues are normal. VASCULATURE: Unremarkable. No abdominal aortic aneurysm. LYMPH NODES: Unremarkable. No enlarged lymph nodes. IMPRESSION: 1. Mild diffuse bladder wall thickening which may be secondary to incomplete distentio n; however, cystitis is within the differential. 2. Distended gallbladder with several calcified gallstones present. If there is clinical concern fo r acute gallbladder pathology, findings could be further evaluated with ultrasound or HIDA scan. Electronically signed by: Adelina Garza MD 02/20/2019 11:30 PM CDT Due to temporary technical issues with the PACS/Fluency reporting system, reports are being signed by the in house radiologist as a courtesy to ensure prompt reporting. The interpreting radiologist is f ully responsible for the content of the report.
== END 2019-02-21 01:48 | disposition home or self-care (01) ==
LOC: ER 20:34
DX: K80.20 Calculus of gallbladder without cholecystitis without obstruction (principal)
CPT/HCPCS: 36415; 74177; 80048; 80076; 81015; 83690; 85025; 87086; 87088; 96361; 96374; 99284; J2405; J7030; Q9967

== ENCOUNTER 2019-03-12 23:10 | Emergency (ER) | payer SELFPAY ==
--- OUTSIDE RECORDS SUMMARY | 2019-03-12 23:12 | XMS REPORT ---
:1975 [facility] Address [address] [place] [address] Care Team Providers Name Role Phone Unavailable [...] code=Valproic Acid Level) 57.6 ug/mL(g) 50.0-100.0 Hemoglobin [id number] 09:36:00 Test Item Value Reference Range Comments Hemoglobin A1c (test 5.0 % 4.8-5.9 Non Diabetic 4.8-5.9%Diabetic code=Hemoglobin A1c) <7.0% CT Shoulder w/o Contrast [id number] 16:49:13Patient: BHUMIKA JONES Date/Time01/09/2019 16:14 CDTReason for [...] FSigned (Electronic Signature): 01/09/2019 4: 49 pmRPR [id number] 21:33:20 Test Item Value Reference Range Comments RPR Qual (test code=RPR Qual) Non-Reactive Non-Reactive Reactive Control (test code=Reactive Control) Reactive Weak Reactive Control (test code=Weak Reactive Weak Reactive Control) Non-Reactive Control (test code=Non-Reactive Non-Reactive Control) Lot # (test code=Lot #) [id number] Expiration Dt (test code=Expiration Dt) 04-23-2020 XR Shoulder Complete 2+ Views [id number] 15:41:25Patient: BHUMIKA JONES Date/Time2018 15:25 CDTReason for [...] ( Electronic Signature): 01/07/2019 3:41 pmThyroid Stimulating [id number] 03:07:04 Test Item Value Reference Range Comments TSH (test code=TSH) 9.650 mIU/mL 0.270-4.200 Lipid [id number] 03:07:03 Test Item Value Reference Range Comments Cholesterol Total (test 199 mg/dL 0-200 RISK OF HEART DISEASEPublished code=Cholesterol Total) by [employer] Analyte Optimal Borderline Increased RiskCHOL [...] is LDL/HDL Ratio=LDL Calc/HDL Chol HCG Qualitative [id number] 02:33:13 Test Item Value Reference Range Comments HCG, Serum Qual (test code=HCG, Serum Qual) Negative Lot # (test code=Lot #) [id number] Expiration Dt (test code=Expiration Dt) 2020-04-23 Neg Control (test code=Neg Control) Negative Pos Control (test code=Pos Control) Positive Internal QC (test code=Internal QC) Acceptable Drugs of Abuse Urine [id number] 18:58:11 Test Item Value Reference Range Comments [...] (test Negative Negative code=Cannabinoid Screen Ur) Alcohol [id number] 18:47:34 Test Item Value Reference Range Comments Ethanol Level (test <0.00 g/dL 0.00-0.01 Intoxicated 0.080 g/dL or more code=Ethanol Level) Ethanol Inst (test <0 code=Ethanol Inst) Comprehensive Metabolic [id number] 18:47:33 Test Item Value Reference Range Comments [...] (test code=A/G Ratio) 1.0 ratio Comprehensive Metabolic [id number] 18:47:33 Test Item Value Reference Range Comments [...] is not provided, and the patient is -Brazilian, multiply by 1.212. If sex is not [...] the National Kidney Foundation, http://nkdep.nih.gov Comprehensive Metabolic [id number] 18:47:33 Test Item Value Reference Range Comments [...] is not provided, and the patient is -[place]ian, multiply by 1.212. If sex is not [...] is not provided, and the patient is -[place]ian, multiply by 1.212. If sex is not [...] Kidney Foundation, http://nkdep.nih.gov Complete Blood Count with [id number] 18:15:23 Test Item Value Reference Range Comments [...] x10 IPF (test code=IPF) 0 % Automated [id number] 18:15:23 Test Item Value Reference Range Comments Neutro Auto (test code=Neutro Auto) 42.1 % 36.0-70.0 Lymph Auto (test code=Lymph Auto) 40.0 % 12.0-44.0 [place] Auto (test code=Hertford Auto) 12.2 % 0.0-11.0 Eos, Auto (test code=Eos, Auto) 4.9 % 0.0-7.0 Basophil Auto (test code=Basophil Auto) 0.6 % 0.0-2.0 Neutro Absolute (test code=Neutro Absolute) 2.2 x10 1.6-7.4 Lymph Absolute (test code=Lymph Absolute) 2.06 x10 .50-4.60 [place] Absolute (test code=[place]ford Absolute) .63 x10 .00-1.20 Eos Absolute (test code=Eos Absolute) 0.25 x10 0.00-0.74 Baso Absolute (test code=Baso Absolute) 0.03 x10 0.00-0.21 IG [id number] 18:15:23 Test Item Value Reference Range Comments IG (test code=IG) 0.2 % 0.0-5.0 IG Abs (test code=IG Abs) 0 x10
--- NOTE | 2019-03-12 23:36 | EDPHYS ---
Physician Documentation [facility] Name: Sidra Hodges Age: 44 yrs Sex: Female : 1975 Arrival Date: 03/12/2019 Time: 23:15 Bed 5 Private MD: ED Physician Pascual Lundy HPI: 03/12 23:30 This 44 yrs old Female presents to ER via Unassigned with complaints of kb Headache, Trouble sleeping. 23:30 Pt reports she hasn't been able to sleep and also has a headache. Reports she used to kb take Abilify for sleep and it worked, but she ran out and they gave her a different medication instead that doesn't work. . Onset: The symptoms/episode began/occurred last week. Severity of symptoms: At their worst the symptoms were moderate in the emergency department the symptoms are unchanged. The patient has not experienced similar symptoms in the past. The patient has not recently seen a physician. Historical: - Allergies: 23:40 NKA; ea - PMHx: 23:40 Seizures; hemorrhoids; Bipolar disorder; ADD/ADHD; ea - Immunization history:: Adult Immunizations up to date. - Social history:: Smoking status: Patient/guardian denies using tobacco. - Ebola Screening: : No symptoms or risks identified at this time. ROS: 23:30 Constitutional: Negative for fever, chills, and weight loss, Cardiovascular: Negative kb for chest pain, palpitations, and edema, Respiratory: Negative for shortness of breath, cough, wheezing, and pleuritic chest pain, Abdomen/GI: Negative for abdominal pain, nausea, vomiting, diarrhea, and constipation, MS/Extremity: Negative for injury and deformity, Skin: Negative for injury, rash, and discoloration. 23:30 Neuro: Positive for headache, insomnia. Exam: 23:30 Constitutional: This is a well developed, well nourished patient who is awake, alert, kb and in no acute distress. Head/Face: Normocephalic, atraumatic. Neck: Trachea midline, no thyromegaly or masses palpated, and no cervical lymphadenopathy. Supple, full range of motion without nuchal rigidity, or vertebral point tenderness. No Meningismus. Chest/axilla: Normal chest wall appearance and motion. Nontender with no deformity. No lesions are appreciated. Cardiovascular: Regular rate and rhythm with a normal S1 and S2. No gallops, murmurs, or rubs. Normal PMI, no JVD. No pulse deficits. Respiratory: Lungs have equal breath sounds bilaterally, clear to auscultation and percussion. No rales, rhonchi or wheezes noted. No increased work of breathing, no retractions or nasal flaring. Abdomen/GI: Soft, non-tender, with normal bowel sounds. No distension or tympany. No guarding or rebound. No evidence of tenderness throughout. Skin: Warm, dry with normal turgor. Normal color with no rashes, no lesions, and no evidence of cellulitis. MS/ Extremity: Pulses equal, no cyanosis. Neurovascular intact. Full, normal range of motion. Neuro: Awake and alert, GCS 15, oriented to person, place, time, and situation. Cranial nerves II-XII grossly intact. Motor strength 5/5 in all extremities. Sensory grossly intact. Cerebellar exam normal. Normal gait. Vital Signs: 23:38 BP 115 / 76; Pulse 56; Resp 18; Temp 97.6; Pulse Ox 99% ; Weight 68.04 kg; Height 5 ft. ea (152.40 cm); Pain 9/10; 23:38 Body Mass Index 29.29 (68.04 kg, 152.40 cm) ea MDM: 23:19 Patient medically screened. kb 23:28 Data reviewed: vital signs, nurses notes. Data interpreted: Pulse oximetry: on room air kb is 100 %. Interpretation: normal. Counseling: I had a detailed discussion with the patient and/or guardian regarding: the historical points, exam findings, and any diagnostic results supporting the discharge/admit diagnosis, the need for outpatient follow up, a family practitioner, to return to the emergency department if symptoms worsen or persist or if there are any questions or concerns that arise at home. Administered Medications: 23:46 Drug: Tylenol 1000 mg Route: PO; rr5 Disposition: 03/13 08:12 Co-signature as Attending Physician, Pascual Lundy MD I agree with the assessment and ry plan of care. Disposition: 03/12/19 23:33 Discharged to Home. Impression: Insomnia. - Condition is Stable. - Discharge Instructions: Insomnia. - Medication Reconciliation Form, Thank You Letter, Antibiotic Education, Prescription Opioid Use form. - Follow up: Emergency Department; When: As needed; Reason: Worsening of condition. Follow up: Private Physician; When: 2 - 3 days; Reason: Recheck today's complaints, Continuance of care, Re-evaluation by your physician. Signatures: Cristina Sewell, BRIAN CROFT-Pascual Ruiz MD MD cha Antunez, Elena, RN RN Aleks Chong RN RN rr5 Corrections: (The following items were deleted from the chart) 00:08 03/12 23:33 03/12/2019 23:33 Discharged to Home. Impression: Insomnia. Condition is rr5 Stable. Forms are Medication Reconciliation Form, Thank You Letter, Antibiotic Education, Prescription Opioid Use. Follow up: Emergency Department; When: As needed; Reason: Worsening of condition. Follow up: Private Physician; When: 2 - 3 days; Reason: Recheck today's complaints, Continuance of care, Re-evaluation by your physician. kb
[2019-03-12] MEDS ORDERED: ACETAMINOPHEN 500 MG TAB ONE (23:43)
--- NOTE | 2019-03-13 00:11 | ER ---
Nurse's Notes [facility] Name: Sidra Hodges Age: 44 yrs Sex: Female : 1975 Arrival Date: 03/12/2019 Time: 23:15 Bed 5 Private MD: Diagnosis: Insomnia Presentation: 03/12 23:41 Presenting complaint: Patient states: Reports she has been unable to sleep for the past ea 9 days and started having a headache tonight. Transition of care: patient was not received from another setting of care. Onset of symptoms was March 12, 2019. Risk Assessment: Do you want to hurt yourself or someone else? Patient reports no desire to harm self or others. Initial Sepsis Screen: Does the patient meet any 2 criteria? No. Patient's initial sepsis screen is negative. Does the patient have a suspected source of infection? No. Patient's initial sepsis screen is negative. Care prior to arrival: None. 23:41 Method Of Arrival: Ambulatory ea 23:41 Acuity: CARMITA 4 ea Triage Assessment: 23:37 Headache History: The patient has had previous headaches and this one is similar to ea previous episodes. General: Appears in no apparent distress. Behavior is calm, cooperative, appropriate for age. Pain: Complains of pain in top of head. Neuro: Level of Consciousness is awake, alert, obeys commands, Oriented to person, place, time, situation. Historical: - Allergies: 23:40 NKA; ea - PMHx: 23:40 Seizures; hemorrhoids; Bipolar disorder; ADD/ADHD; ea - Immunization history:: Adult Immunizations up to date. - Social history:: Smoking status: Patient/guardian denies using tobacco. - Ebola Screening: : No symptoms or risks identified at this time. Screenin:34 Abuse screen: Denies threats or abuse. Nutritional screening: No deficits noted. ea Tuberculosis screening: No symptoms or risk factors identified. Fall Risk None identified. Assessment: 23:43 General: Appears in no apparent distress. Behavior is calm, cooperative, appropriate ea for age. Pain: Complains of pain in top of head Pain does not radiate. Neuro: Level of Consciousness is awake, alert, obeys commands, Oriented to person, place, time. Cardiovascular: Patient's skin is warm and dry. Respiratory: Airway is patent Respiratory effort is even, unlabored, Respiratory pattern is regular, symmetrical. Derm: Skin is pink, warm \T\ dry. 03/13 00:00 Reassessment: Patient and/or family updated on plan of care and expected duration. Pain ea level reassessed. Patient is alert, oriented x 3, equal unlabored respirations, skin warm/dry/pink. Discharge instruction given to patient, verbalized the understanding of instruction, pt tolerated well. Vital Signs: 03/12 23:38 BP 115 / 76; Pulse 56; Resp 18; Temp 97.6; Pulse Ox 99% ; Weight 68.04 kg; Height 5 ft. ea (152.40 cm); Pain 9/10; 23:38 Body Mass Index 29.29 (68.04 kg, 152.40 cm) ea ED Course: 23:15 Patient arrived in ED. mr 23:19 Crist[facility] Sewell [facility]C [facility]. kb 23:19 Pascual Lundy MD is Attending Physician. kb 23:34 Kesha May, GERONIMO is Primary Nurse. ea 23:35 Arm band placed on right wrist. Patient placed in an exam room, on a stretcher, on ea pulse oximetry. 23:43 Triage completed. ea 23:43 Patient has correct armband on for positive identification. Bed in low position. Call ea light in reach. Side rails up X 1. 23:47 No provider procedures requiring assistance completed. Patient did not have IV access rr5 during this emergency room visit. Administered Medications: 23:46 Drug: Tylenol 1000 mg Route: PO; rr5 Outcome: 23:33 Discharge ordered by MD. kb 23:56 Discharged to home ambulatory. rr5 23:56 Condition: stable 23:58 Discharge instructions given to patient, Instructed on discharge instructions, follow rr5 up and referral plans. Demonstrated understanding of instructions, follow-up care. 03/13 00:08 Patient left the ED. rr5 Signatures: Cristina Sewell FNP-C FNP-Oskar Yanira Santa mr Kesha May, RN Aleks Yarbrough ea, RN RN rr5
[2019-03-13 00:41] VITALS: BP 115/76; TEMP 97.6; O2SAT 99
== END 2019-03-13 00:08 | disposition home or self-care (01) ==
LOC: ER 23:10
DX: G47.00 Insomnia, unspecified (principal)
CPT/HCPCS: 99283

== ENCOUNTER 2019-04-01 03:20 | Emergency (ER) | payer SELFPAY ==
--- NOTE | 2019-04-01 03:39 | EDPHYS ---
Physician Documentation [facility] Name: Sidra Hodges Age: 44 yrs Sex: Female : 1975 Arrival Date: 04/01/2019 Time: 03:23 Bed 18 Private MD: ED Physician Deon Rojas HPI: 04/01 03:26 This 44 yrs old Female presents to ER via EMS with complaints of Ear Pain. ps1 03:26 pain for 1 day. Localized to left ear. Pain moderate. No fever. . 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 - Social history:: Smoking status: Patient/guardian denies using tobacco, Patient/guardian denies using alcohol, street drugs. - Ebola Screening: : Patient negative for fever greater than or equal to 101.5 degrees Fahrenheit, and additional compatible Ebola Virus Disease symptoms Patient denies exposure to infectious person Patient denies travel to an Ebola-affected area in the 21 days before illness onset. ROS: 03:26 Constitutional: Negative for fever, chills, and weight loss, Eyes: Negative for injury, ps1 pain, redness, and discharge, Cardiovascular: Negative for chest pain, palpitations, and edema, Respiratory: Negative for shortness of breath, cough, wheezing, and pleuritic chest pain, Abdomen/GI: Negative for abdominal pain, nausea, vomiting, diarrhea, and constipation. Exam: 03:26 Constitutional: This is a well developed, well nourished patient who is awake, alert, ps1 and in no acute distress. Head/Face: Normocephalic, atraumatic. Cardiovascular: Regular rate and rhythm. No gallops, murmurs, or rubs. Normal PMI, no JVD. No pulse deficits. Respiratory: Lungs have equal breath sounds bilaterally, clear to auscultation and percussion. No rales, rhonchi or wheezes noted. No increased work of breathing, no retractions or nasal flaring. Abdomen/GI: Soft, non-tender, with normal bowel sounds. No distension or tympany. No guarding or rebound. No evidence of tenderness throughout. MS/ Extremity: Pulses equal, no cyanosis. Neurovascular intact. Full, normal range of motion. Neuro: Awake and alert, GCS 15, oriented to person, place, time, and situation. Cranial nerves II-XII grossly intact. Sensory grossly intact. 03:26 ENT: External ear(s): are unremarkable, Ear canal(s): erythema, that is moderate, of the left canal. Vital Signs: 03:20 BP 125 / 83; Pulse 70; Resp 17 S; Temp 98.6(O); Pulse Ox 100% on R/A; Weight 72.57 kg cc3 (R); Height 4 ft. 6 in. (137.16 cm) (R); Pain 7/10; 04:12 BP 120 / 84; Pulse 72; Resp 16 S; Pulse Ox 100% on R/A; Pain 0/10; cc3 03:20 Body Mass Index 38.58 (72.57 kg, 137.16 cm) cc3 MDM: 03:38 Patient medically screened. ps1 03:40 Data reviewed: vital signs, nurses notes, and as a result, I will discharge patient. ps1 Counseling: I had a detailed discussion with the patient and/or guardian regarding: the historical points, exam findings, and any diagnostic results supporting the discharge/admit diagnosis, to return to the emergency department if symptoms worsen or persist or if there are any questions or concerns that arise at home. Administered Medications: No medications were administered Disposition: 04/01/19 03:38 Discharged to Home. Impression: Left otitis media. - Condition is Stable. - Discharge Instructions: Otitis Media, Adult. - Prescriptions for Amoxicillin 875 mg Oral Tablet - take 1 tablet by ORAL route every 12 hours for 10 days; 20 tablet. - Medication Reconciliation Form, Thank You Letter, Antibiotic Education, Prescription Opioid Use form. - Follow up: Private Physician; When: As needed; Reason: Worsening of condition, Recheck today's complaints, Continuance of care, Re-evaluation by your physician. Follow up: Emergency Department; When: As needed; Reason: Worsening of condition. - Problem is new. - Symptoms are unchanged. Signatures: Lefty Tucker RN RN Deon Crum MD MD ps1 Madeleine Solis cc3 Corrections: (The following items were deleted from the chart) 04:39 03:38 04/01/2019 03:38 Discharged to Home. Impression: Left otitis media. Condition is cc3 Stable. Forms are Medication Reconciliation Form, Thank You Letter, Antibiotic Education, Prescription Opioid Use. Follow up: Private Physician; When: As needed; Reason: Worsening of condition, Recheck today's complaints, Continuance of care, Re-evaluation by your physician. Follow up: Emergency Department; When: As needed; Reason: Worsening of condition. Problem is new. Symptoms are unchanged. ps1
--- NOTE | 2019-04-01 03:39 | ER ---
Nurse's Notes [facility] Name: Sidra Hodges Age: 44 yrs Sex: Female : 1975 Arrival Date: 04/01/2019 Time: 03:23 Bed 18 Private MD: Diagnosis: Left otitis media Presentation: 04/01 03:24 Presenting complaint: EMS states: Left ear pain started 1900 last night. Denied nausea ao and vomiting. Transition of care: patient was not received from another setting of care. Onset of symptoms was March 31, 2019 at 19:00. Risk Assessment: Do you want to hurt yourself or someone else? Patient reports no desire to harm self or others. Initial Sepsis Screen: Does the patient meet any 2 criteria? No. Patient's initial sepsis screen is negative. Does the patient have a suspected source of infection? No. Patient's initial sepsis screen is negative. Care prior to arrival: None. 03:24 Method Of Arrival: EMS: [facility] ao 03:24 Acuity: CARMITA 4 ao Triage Assessment: 03:20 General: Appears in no apparent distress. comfortable, Behavior is calm, cooperative. cc3 Pain: Complains of pain in left ear Pain currently is 7 out of 10 on a pain scale. Quality of pain is described as aching. EENT: Reports pain in left ear. 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 - Social history:: Smoking status: Patient/guardian denies using tobacco, Patient/guardian denies using alcohol, street drugs. - Ebola Screening: : Patient negative for fever greater than or equal to 101.5 degrees Fahrenheit, and additional compatible Ebola Virus Disease symptoms Patient denies exposure to infectious person Patient denies travel to an Ebola-affected area in the 21 days before illness onset. Screenin:20 Abuse screen: Denies threats or abuse. Denies injuries from another. Nutritional cc3 screening: No deficits noted. Tuberculosis screening: No symptoms or risk factors identified. Fall Risk Ambulatory Aid- None/Bed Rest/Nurse Assist (0 pts). Gait- Normal/Bed Rest/Wheelchair (0 pts) Mental Status- Oriented to own ability (0 pts). Assessment: 03:20 General: Appears in no apparent distress. comfortable, Behavior is calm, cooperative, cc3 appropriate for age. Pain: Complains of pain in left ear. Neuro: Level of Consciousness is awake, alert, obeys commands, Oriented to person, place, time, situation, Appropriate for age. Cardiovascular: Denies chest pain, Heart tones S1 S2 present Capillary refill < 3 seconds in bilateral fingers Patient's skin is warm and dry. Respiratory: Airway is patent Respiratory effort is even, unlabored, Respiratory pattern is regular, symmetrical, Breath sounds are clear bilaterally. GI: Abdomen is round non-distended, Bowel sounds present X 4 quads. : No signs and/or symptoms were reported regarding the genitourinary system. EENT: Reports pain in left ear. Derm: Skin is intact, is healthy with good turgor, Skin is pink, warm \T\ dry. normal. Musculoskeletal: Circulation, motion, and sensation intact. Range of motion: intact in all extremities. 04:00 Reassessment: Patient appears in no apparent distress at this time. Patient and/or cc3 family updated on plan of care and expected duration. Pain level reassessed. Patient is alert, oriented x 3, equal unlabored respirations, skin warm/dry/pink. Dr. Rojas discharged the patient home but needs a taxi ride, called storehouse clerk and said it's okay to call a taxi for the patient, charge nurse Conchita informed. ED registration staff called a taxi for the patient. 04:20 Reassessment: Patient appears in no apparent distress at this time. Patient and/or cc3 family updated on plan of care and expected duration. Pain level reassessed. Patient is alert, oriented x 3, equal unlabored respirations, skin warm/dry/pink. Taxi came, patient discharged home with prescription given, no IV cannula in situ. Patient left ER vitally stable and ambulatory. No valuables left in the patient's room. Patient denies pain at this time. Vital Signs: 03:20 BP 125 / 83; Pulse 70; Resp 17 S; Temp 98.6(O); Pulse Ox 100% on R/A; Weight 72.57 kg cc3 (R); Height 4 ft. 6 in. (137.16 cm) (R); Pain 7/10; 04:12 BP 120 / 84; Pulse 72; Resp 16 S; Pulse Ox 100% on R/A; Pain 0/10; cc3 03:20 Body Mass Index 38.58 (72.57 kg, 137.16 cm) cc3 ED Course: 03:20 Arm band placed on right wrist. Patient notified of wait time. cc3 03:20 Patient has correct armband on for positive identification. Bed in low position. Call cc3 light in reach. Side rails up X 1. Pulse ox on. NIBP on. 03:23 Patient arrived in ED. ao 03:25 Deon Rojas MD is Attending Physician. ps1 03:26 Triage completed. ao 03:26 Madeleine Solis is Primary Nurse. cc3 03:29 Patient has correct armband on for positive identification. Pulse ox on. NIBP on. ao 04:20 No provider procedures requiring assistance completed. Patient did not have IV access cc3 during this emergency room visit. Administered Medications: No medications were administered Outcome: 03:38 Discharge ordered by . ps1 04:20 Discharged to home ambulatory. cc3 04:20 Condition: stable 04:20 Discharge instructions given to patient, Instructed on discharge instructions, follow up and referral plans. medication usage, Demonstrated understanding of instructions, follow-up care, medications, Prescriptions given X 1. 04:39 Patient left the ED. cc3 Signatures: Lefty Tucker, RN RN Deon Crum MD MD ps1 Madeleine Solis cc3
[2019-04-01 04:53] VITALS: BP 125/83; TEMP 98.6; O2SAT 100
== END 2019-04-01 04:39 | disposition home or self-care (01) ==
LOC: ER 03:20
DX: H66.92 Otitis media, unspecified, left ear (principal); F31.9 Bipolar disorder, unspecified
CPT/HCPCS: 99283

== ENCOUNTER 2019-04-05 18:52 | Emergency (ER) | payer SELFPAY ==
--- NOTE | 2019-04-05 20:18 | EDPHYS ---
Physician Documentation [facility] Name: Sidra Hodges Age: 44 yrs Sex: Female : 1975 Arrival Date: 04/05/2019 Time: 19:00 Bed 19 Private MD: ED Physician Tom Petersen HPI: 04/05 20:14 This 44 yrs old Female presents to ER via EMS with complaints of Anxiety. gs 20:14 The patient or guardian reports chest pain that is located primarily in the anterior gs chest wall. Onset: just prior to arrival, after argument. Associated signs and symptoms: Pertinent negatives: abdominal pain, cough, diaphoresis, palpitations, shortness of breath. The chest pain is described as dull. Duration: The patient or guardian reports a single episode, that is now resolved, that lasted 2 minute(s). Severity of pain: At its worst the pain was mild in the emergency department the pain has resolved. Historical: - Allergies: 19:05 NKA; em - Home Meds: 19:05 divalproex Oral [Active]; Hydroxyzine Oral [Active]; oxcarbazepine Oral [Active]; em Risperdal Oral [Active]; - PMHx: 19:05 ADD/ADHD; Bipolar disorder; hemorrhoids; Seizures; em - PSHx: 19:05 None; em - Immunization history:: Adult Immunizations up to date. - Social history:: Smoking status: Patient/guardian denies using tobacco. - Ebola Screening: : Patient negative for fever greater than or equal to 101.5 degrees Fahrenheit, and additional compatible Ebola Virus Disease symptoms Patient denies exposure to infectious person Patient denies travel to an Ebola-affected area in the 21 days before illness onset No symptoms or risks identified at this time. ROS: 20:14 All other systems are negative. gs Exam: 20:14 Head/Face: Normocephalic, atraumatic. Eyes: Pupils equal round and reactive to light, gs extra-ocular motions intact. Lids and lashes normal. Conjunctiva and sclera are non-icteric and not injected. Cornea within normal limits. Periorbital areas with no swelling, redness, or edema. ENT: Nares patent. No nasal discharge, no septal abnormalities noted. Tympanic membranes are normal and external auditory canals are clear. Oropharynx with no redness, swelling, or masses, exudates, or evidence of obstruction, uvula midline. Mucous membranes moist. Neck: Trachea midline, no thyromegaly or masses palpated, and no cervical lymphadenopathy. Supple, full range of motion without nuchal rigidity, or vertebral point tenderness. No Meningismus. Chest/axilla: Normal chest wall appearance and motion. Nontender with no deformity. No lesions are appreciated. Cardiovascular: Regular rate and rhythm with a normal S1 and S2. No gallops, murmurs, or rubs. Normal PMI, no JVD. No pulse deficits. Respiratory: Lungs have equal breath sounds bilaterally, clear to auscultation and percussion. No rales, rhonchi or wheezes noted. No increased work of breathing, no retractions or nasal flaring. Abdomen/GI: Soft, non-tender, with normal bowel sounds. No distension or tympany. No guarding or rebound. No evidence of tenderness throughout. Back: No spinal tenderness. No costovertebral tenderness. Full range of motion. Skin: Warm, dry with normal turgor. Normal color with no rashes, no lesions, and no evidence of cellulitis. MS/ Extremity: Pulses equal, no cyanosis. Neurovascular intact. Full, normal range of motion. Neuro: Awake and alert, GCS 15, oriented to person, place, time, and situation. Cranial nerves II-XII grossly intact. Motor strength 5/5 in all extremities. Sensory grossly intact. Cerebellar exam normal. Normal gait. 20:14 Constitutional: The patient appears alert, awake. 20:14 ECG was reviewed by the Attending Physician. Vital Signs: 19:05 BP 140 / 84; Pulse 61; Resp 18; Temp 98.1(O); Pulse Ox 99% on R/A; em 20:00 BP 145 / 90; Pulse 62; Resp 16 S; Pulse Ox 100% on R/A; cc3 MDM: 19:28 Patient medically screened. gs 20:14 Differential diagnosis: acute myocardial infarction, anxiety, chest wall pain. Data gs reviewed: vital signs, nurses notes. ED course: refused xray, trop negative. 20:18 Counseling: I had a detailed discussion with the patient and/or guardian regarding: the gs historical points, exam findings, and any diagnostic results supporting the discharge/admit diagnosis, the presence of at least one elevated blood pressure reading (>120/80) during this emergency department visit, the need for outpatient follow up. Special discussion: I have referred the patient to see his PCP for further evaluation of high blood pressure. 04/05 19:28 Order name: Troponin (emerg Dept Use Only); Complete Time: 20:17 gs 04/05 19:18 Order name: EKG - Nurse/Tech; Complete Time: 19:29 gs EC:14 Rate is 57 beats/min. Rhythm is regular. NV interval is normal. QRS interval is normal. gs QT interval is normal. T waves are Flattened. Clinical impression: NSR w/ Non-specific ST/T Changes. Interpreted by me. Administered Medications: No medications were administered Disposition: 04/05/19 20:18 Discharged to Home. Impression: Chest pain, unspecified. - Condition is Stable. - Discharge Instructions: Managing Your Hypertension. - Medication Reconciliation Form, Thank You Letter, Antibiotic Education, Prescription Opioid Use form. - Follow up: Private Physician; When: 2 - 3 days; Reason: Re-evaluation by your physician. Signatures: Dispatcher [employer] EDMS Verito Santos, PRIVATE DUTY AIDE-C PRIVATE DUTY AIDE-Csnw Florentin Heath, IN FILE OPERATOR IN FILE OPERATOR em Tom Petersen MD MD gs Cordel, Charlene cc3 Corrections: (The following items were deleted from the chart) 20:25 20:18 04/05/2019 20:18 Discharged to Home. Impression: Chest pain, unspecified. cc3 Condition is Stable. Forms are Medication Reconciliation Form, Thank You Letter, Antibiotic Education, Prescription Opioid Use. Follow up: Private Physician; When: 2 - 3 days; Reason: Re-evaluation by your physician. gs
--- NOTE | 2019-04-05 20:18 | ER ---
Nurse's Notes [facility] Name: Sidra Hodges Age: 44 yrs Sex: Female : 1975 Arrival Date: 04/05/2019 Time: 19:00 Bed 19 Private MD: Diagnosis: Chest pain, unspecified Presentation: 04/05 19:03 Presenting complaint: EMS states: called out for anxiety attack after arguing with em family, reports pain in "heart" pointing at center of chest, denies nausea. Transition of care: patient was not received from another setting of care. Onset of symptoms was April 05, 2019. Risk Assessment: Do you want to hurt yourself or someone else? Patient reports no desire to harm self or others. Initial Sepsis Screen: Does the patient meet any 2 criteria? No. Patient's initial sepsis screen is negative. Does the patient have a suspected source of infection? No. Patient's initial sepsis screen is negative. Care prior to arrival: None. 19:03 Method Of Arrival: EMS: [facility] em 19:05 Acuity: CARMITA 3 cc3 Triage Assessment: 19:05 General: Appears in no apparent distress. comfortable, Behavior is calm, cooperative, cc3 appropriate for age. 19:05 Pain: Complains of pain in chest. cc3 Historical: - Allergies: 19:05 NKA; em - Home Meds: 19:05 divalproex Oral [Active]; Hydroxyzine Oral [Active]; oxcarbazepine Oral [Active]; em Risperdal Oral [Active]; - PMHx: 19:05 ADD/ADHD; Bipolar disorder; hemorrhoids; Seizures; em - PSHx: 19:05 None; em - Immunization history:: Adult Immunizations up to date. - Social history:: Smoking status: Patient/guardian denies using tobacco. - Ebola Screening: : Patient negative for fever greater than or equal to 101.5 degrees Fahrenheit, and additional compatible Ebola Virus Disease symptoms Patient denies exposure to infectious person Patient denies travel to an Ebola-affected area in the 21 days before illness onset No symptoms or risks identified at this time. Screenin:06 Abuse screen: Denies threats or abuse. Nutritional screening: No deficits noted. em Tuberculosis screening: No symptoms or risk factors identified. Fall Risk None identified. Assessment: 19:05 General: Appears in no apparent distress. comfortable, Behavior is calm, cooperative, cc3 appropriate for age. Pain: Complains of pain in chest. Neuro: Level of Consciousness is awake, alert, obeys commands, Oriented to person, place, time, situation, Appropriate for age. Cardiovascular: Reports chest pain, Heart tones S1 S2 present Capillary refill < 3 seconds in bilateral fingers Patient's skin is warm and dry. Rhythm is sinus rhythm. Respiratory: Airway is patent Respiratory effort is even, unlabored, Respiratory pattern is regular, symmetrical. GI: Abdomen is round non-distended. : No signs and/or symptoms were reported regarding the genitourinary system. EENT: No signs and/or symptoms were reported regarding the EENT system. Derm: Skin is intact, is healthy with good turgor, Skin is pink, warm \\T\\ dry. normal. Musculoskeletal: Circulation, motion, and sensation intact. Range of motion: intact in all extremities. 20:00 Reassessment: Patient appears in no apparent distress at this time. Patient and/or cc3 family updated on plan of care and expected duration. Pain level reassessed. Patient is alert, oriented x 3, equal unlabored respirations, skin warm/dry/pink. 20:15 Reassessment: RN Rc informed me that the patient refused xray procedure then left cc3 the ER. Dr. Petersen and charge nurse Conchita informed. 20:18 Reassessment: Dr. Petersen ordered patient for discharge home but patient left already cc3 prior to the discharge order so discharge papers not signed. Vital Signs: 19:05 BP 140 / 84; Pulse 61; Resp 18; Temp 98.1(O); Pulse Ox 99% on R/A; em 20:00 BP 145 / 90; Pulse 62; Resp 16 S; Pulse Ox 100% on R/A; cc3 ED Course: 19:00 Patient arrived in ED. em 19:02 Madeleine Solis is Primary Nurse. cc3 19:05 Arm band placed on. em 19:06 Patient has correct armband on for positive identification. Bed in low position. Call em light in reach. Side rails up X2. 19:13 Tom Petersen MD is Attending Physician. gs 20:15 No provider procedures requiring assistance completed. Patient did not have IV access cc3 during this emergency room visit. 21:26 Triage completed. cc3 Administered Medications: No medications were administered Outcome: 20:15 Discharged to home ambulatory. cc3 20:15 Condition: stable 20:15 Discharge instructions given to patient, patient left ER before she was ordered for discharge home so discharge papers were not signed 20:18 Discharge ordered by . salma 20:25 Patient left the ED. cc3 Signatures: Florentin Heath, MART SEE SUPERVISOR Tom Delicd MD MD gs Cordel, Charlene cc3
[2019-04-05 20:34] VITALS: BP 140/84; TEMP 98.1; O2SAT 99
--- NOTE | 2019-04-06 10:01 | EKG ---
Test Date: 2019-04-05 Test Time: 19:23:34 Literary Writer: CYNTHIA MEASUREMENT RESULTS: Intervals: Rate: 57 CO: 152 QRSD: 84 QT: 362 QTc: 352 [place]: P: 23 CO: 152 QRS: 35 T: 73 INTERPRETIVE STATEMENTS: Sinus bradycardia Possible Anterior infarct, age undetermined Abnormal ECG Compared to ECG 02/16/2019 19:06:42 Myocardial infarct finding now present Sinus rhythm no longer present T-wave abnormality no longer present Electronically Signed On 04-06-19 10:01:11 CDT by Flo Purvis
== END 2019-04-05 20:25 | disposition home or self-care (01) ==
LOC: ER 18:52
DX: R07.9 Chest pain, unspecified (principal)
CPT/HCPCS: 36415; 84484; 93005; 99284

== ENCOUNTER 2019-04-06 21:04 | Emergency (ER) | payer SELFPAY ==
[2019-04-06] MEDS ORDERED: LORAZEPAM 1 MG TABLET ONE (21:31)
--- NOTE | 2019-04-06 23:30 | EDPHYS ---
Physician Documentation [facility] Name: Sidra Hodges Age: 44 yrs Sex: Female : 1975 Arrival Date: 04/06/2019 Time: 21:06 Bed 26 Private MD: ED Physician Jeffrey Herr HPI: 04/06 21:27 This 44 yrs old Female presents to ER via EMS with complaints of Anxiety. pkl 21:27 The patient or guardian reports chest pain that is located primarily in the substernal pkl area. Onset: just prior to arrival. The pain does not radiate. Associated signs and symptoms: Pertinent positives: headache. The chest pain is described as dull. The patient has experienced similar episodes in the past, multiple times. 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 - Social history:: Smoking status: Patient/guardian denies using tobacco. - Ebola Screening: : Patient negative for fever greater than or equal to 101.5 degrees Fahrenheit, and additional compatible Ebola Virus Disease symptoms Patient denies exposure to infectious person Patient denies travel to an Ebola-affected area in the 21 days before illness onset No symptoms or risks identified at this time. ROS: 21:27 Eyes: Negative for injury, pain, redness, and discharge, ENT: Negative for injury, pkl pain, and discharge, Neck: Negative for injury, pain, and swelling. 21:27 Cardiovascular: Positive for chest pain. 21:27 Respiratory: Negative for cough, shortness of breath. 21:27 Abdomen/GI: Negative for abdominal pain, nausea, vomiting, and diarrhea. 21:27 Back: Negative for acute changes. 21:27 : Negative for urinary symptoms. 21:27 MS/extremity: Negative for acute changes. 21:27 Skin: Negative for rash. 21:27 Neuro: Positive for headache. Exam: 21:27 Head/Face: Normocephalic, atraumatic. Eyes: Pupils equal round and reactive to light, pkl extra-ocular motions intact. Lids and lashes normal. Conjunctiva and sclera are non-icteric and not injected. Cornea within normal limits. Periorbital areas with no swelling, redness, or edema. ENT: Nares patent. No nasal discharge, no septal abnormalities noted. Tympanic membranes are normal and external auditory canals are clear. Oropharynx with no redness, swelling, or masses, exudates, or evidence of obstruction, uvula midline. Mucous membranes moist. Neck: Trachea midline, no thyromegaly or masses palpated, and no cervical lymphadenopathy. Supple, full range of motion without nuchal rigidity, or vertebral point tenderness. No Meningismus. Chest/axilla: Normal chest wall appearance and motion. Nontender with no deformity. No lesions are appreciated. 21:27 Cardiovascular: Rate: normal, Rhythm: regular. 21:27 Respiratory: the patient does not display signs of respiratory distress, Respirations: normal, Breath sounds: are clear throughout. 21:27 Abdomen/GI: Bowel sounds: normal, Palpation: abdomen is soft and non-tender, in all quadrants. 21:27 Back: Exam negative for acute changes. 21:27 : Exam negative for acute changes. 21:27 Musculoskeletal/extremity: Exam is negative for acute changes. 21:27 Skin: Exam negative for rash. 21:27 Neuro: Orientation: is normal, Mentation: is normal, Cranial nerves: grossly normal, Motor: is normal. 21:27 Psych: Behavior/mood is cooperative, Affect is calm, Patient has no thoughts/intents to harm self or others. Vital Signs: 21:18 BP 114 / 79; Pulse 80; Resp 17 S; Temp 98.8(O); Pulse Ox 100% on R/A; Weight 58.97 kg ca1 (R); Height 4 ft. 8 in. (142.24 cm) (R); Pain 10/10; 22:28 BP 109 / 71; Pulse 79; Resp 16 S; Pulse Ox 98% on R/A; ca1 23:21 BP 107 / 72; Pulse 77; Resp 17 S; Pulse Ox 99% on R/A; ca1 21:18 Body Mass Index 29.15 (58.97 kg, 142.24 cm) ca1 MDM: 21:06 Patient medically screened. pkl 23:28 Data reviewed: vital signs, nurses notes, EKG. pkl 04/06 21:27 Order name: EKG; Complete Time: 21:27 ca1 10/14 21:27 Order name: EKG - Nurse/Tech; Complete Time: 21:43 ca1 Administered Medications: 21:35 Drug: Ativan 1 mg Route: PO; ca1 23:22 Follow up: Response: No adverse reaction; Anxiety decreased ca1 Disposition: 04/06/19 23:29 Discharged to Home. Impression: Chest pain. Anxiety disorder. - Condition is Stable. - Medication Reconciliation Form, Thank You Letter, Antibiotic Education, Prescription Opioid Use form. - Follow up: Private Physician; When: 1 - 2 days; Reason: Re-evaluation by your physician. - Problem is new. - Symptoms have improved. Signatures: Jeffrey Herr MD MD pkl Crissy Moss RN RN ca1 Corrections: (The following items were deleted from the chart) 23:38 23:29 04/06/2019 23:29 Discharged to Home. Impression: Chest pain. Anxiety disorder. ca1 Condition is Stable. Forms are Medication Reconciliation Form, Thank You Letter, Antibiotic Education, Prescription Opioid Use. Follow up: Private Physician; When: 1 - 2 days; Reason: Re-evaluation by your physician. Problem is new. Symptoms have improved. pkl
--- NOTE | 2019-04-06 23:30 | ER ---
Nurse's Notes [facility] Name: Sidra Hodges Age: 44 yrs Sex: Female : 1975 Arrival Date: 04/06/2019 Time: 21:06 Bed 26 Private MD: Diagnosis: Chest pain. Anxiety disorder Presentation: 04/06 21:14 Presenting complaint: EMS states: pt c/o anxiety attack. She has been kicked out of [facility] home by family. Pt c/o chest pain and headaches. Pt has HX of seizures and anxiety. Transition of care: patient was not received from another setting of care. Onset of symptoms was April 06, 2019. Risk Assessment: Do you want to hurt yourself or someone else? Patient reports no desire to harm self or others. Initial Sepsis Screen: Does the patient meet any 2 criteria? No. Patient's initial sepsis screen is negative. Does the patient have a suspected source of infection? No. Patient's initial sepsis screen is negative. Care prior to arrival: None. 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 - Social history:: Smoking status: Patient/guardian denies using tobacco. - Ebola Screening: : Patient negative for fever greater than or equal to 101.5 degrees Fahrenheit, and additional compatible Ebola Virus Disease symptoms Patient denies exposure to infectious person Patient denies travel to an Ebola-affected area in the 21 days before illness onset No symptoms or risks identified at this time. Screenin:19 Abuse screen: Denies threats or abuse. Denies injuries from another. Nutritional ca1 screening: No deficits noted. Tuberculosis screening: No symptoms or risk factors identified. Fall Risk None identified. Assessment: 21:19 General: Appears in no apparent distress. comfortable, Behavior is cooperative, ca1 appropriate for age, crying. Pain: Complains of pain in face and scalp Pain does not radiate. Pain currently is 10 out of 10 on a pain scale. Neuro: Level of Consciousness is awake, alert, obeys commands, Oriented to person, place, time, situation. Cardiovascular: Heart tones S1 S2 present Capillary refill < 3 seconds Patient's skin is warm and dry. Respiratory: Airway is patent Respiratory effort is even, unlabored, Respiratory pattern is regular, symmetrical, Breath sounds are clear bilaterally. GI: Abdomen is round non-distended, Bowel sounds present X 4 quads. Abd is soft and non tender X 4 quads. : No deficits noted. No signs and/or symptoms were reported regarding the genitourinary system. EENT: No deficits noted. No signs and/or symptoms were reported regarding the EENT system. Derm: Skin is intact, is healthy with good turgor, Skin is pink, warm \T\ dry. Musculoskeletal: Circulation, motion, and sensation intact. Capillary refill < 3 seconds, Range of motion: intact in all extremities. 21:58 Reassessment: Patient appears in no apparent distress at this time. Patient and/or ca1 family updated on plan of care and expected duration. Pain level reassessed. Patient is alert, oriented x 3, equal unlabored respirations, skin warm/dry/pink. General: Behavior is calm, Pt eating nuts and chips. . 22:28 Reassessment: Patient appears in no apparent distress at this time. Patient and/or ca1 family updated on plan of care and expected duration. Pain level reassessed. Patient is alert, oriented x 3, equal unlabored respirations, skin warm/dry/pink. 23:21 Reassessment: Patient appears in no apparent distress at this time. Patient is alert, ca1 oriented x 3, equal unlabored respirations, skin warm/dry/pink. Vital Signs: 21:18 BP 114 / 79; Pulse 80; Resp 17 S; Temp 98.8(O); Pulse Ox 100% on R/A; Weight 58.97 kg ca1 (R); Height 4 ft. 8 in. (142.24 cm) (R); Pain 10/10; 22:28 BP 109 / 71; Pulse 79; Resp 16 S; Pulse Ox 98% on R/A; ca1 23:21 BP 107 / 72; Pulse 77; Resp 17 S; Pulse Ox 99% on R/A; ca1 21:18 Body Mass Index 29.15 (58.97 kg, 142.24 cm) ca1 ED Course: 21:06 Patient arrived in ED. ca1 21:06 Jeffrey Herr MD is Attending Physician. pkl 21:14 Crissy Moss, RN is Primary Nurse. ca1 21:17 Triage completed. ca1 21:18 Arm band placed on right wrist. ca1 21:19 Patient has correct armband on for positive identification. Bed in low position. Call ca1 light in reach. Side rails up X 1. Pulse ox on. NIBP on. Warm blanket given. 21:19 No provider procedures requiring assistance completed. ca1 23:23 IV discontinued, intact, bleeding controlled, No redness/swelling at site. Pressure ca1 dressing applied. Administered Medications: 21:35 Drug: Ativan 1 mg Route: PO; ca1 23:22 Follow up: Response: No adverse reaction; Anxiety decreased ca1 Outcome: 23:29 Discharge ordered by . pkl 23:34 Discharged to home ambulatory. ca1 23:34 Condition: stable 23:34 Discharge instructions given to patient, Instructed on discharge instructions, follow up and referral plans. Demonstrated understanding of instructions, follow-up care. 23:38 Patient left the ED. ca1 Signatures: Jeffrey Herr MD MD pkCrissy Koehler, RN RN ca1
[2019-04-07 01:02] VITALS: TEMP 98.8
[2019-04-07 01:06] VITALS: BP 107/72; O2SAT 99
--- NOTE | 2019-04-07 05:31 | EKG ---
Test Date: 2019-04-06 Test Time: 21:40:[address] Production Manager: LUCHO MEASUREMENT RESULTS: Intervals: Rate: 71 AK: 138 QRSD: 88 QT: 358 QTc: 389 [place]: P: 41 AK: 138 QRS: 14 T: 58 INTERPRETIVE STATEMENTS: Normal sinus rhythm Nonspecific T wave abnormality Abnormal ECG Compared to ECG 04/05/2019 19:23:34 T-wave abnormality now present Sinus bradycardia no longer present Myocardial infarct finding no longer present Electronically Signed On 04-07-19 05:30:21 CDT by Flo Purvis
== END 2019-04-06 23:38 | disposition home or self-care (01) ==
LOC: ER 21:04
DX: F41.9 Anxiety disorder, unspecified (principal); R07.9 Chest pain, unspecified
CPT/HCPCS: 93005; 99283

== ENCOUNTER 2019-04-07 02:44 | Emergency (ER) | payer SELFPAY ==
[2019-04-07] MEDS ORDERED: ZIPRASIDONE MESYLA 20 MG/VIAL IM ONE (03:20)
[2019-04-07] MEDS ORDERED: WATER FOR INJ,STERILE 10 ML ONE (03:20)
[2019-04-07] MEDS ORDERED: ACETAMINOPHEN 500 MG TAB ONE (03:48)
--- NOTE | 2019-04-07 06:34 | EDPHYS ---
Physician Documentation [facility] Name: Sidra Hodges Age: 44 yrs Sex: Female : 1975 Arrival Date: 04/07/2019 Time: 02:50 Bed 5 Private MD: ED Physician Jeffrey Herr HPI: 04/07 04:43 This 44 yrs old Female presents to ER via Other with complaints of Suicidal pkl Ideation. 04:43 The patient presents to the emergency department with depression, suicide ideation. pkl Onset: The symptoms/episode began/occurred just prior to arrival. Patient seen earlier in the ER for anxiety disorder. [facility] [place] was to see patient was unable to get into her home. Patient told [facility] [place] if he did not come she was going to go lay on the road and get run over.. Historical: - Allergies: 03:52 NKA; fc - Home Meds: 03:52 divalproex Oral [Active]; Hydroxyzine Oral [Active]; oxcarbazepine Oral [Active]; fc Risperdal Oral [Active]; - PMHx: 03:52 ADD/ADHD; Bipolar disorder; hemorrhoids; Anxiety; Seizures; fc - PSHx: 03:52 None; fc - Immunization history:: Last tetanus immunization: unknown. - Social history:: Smoking status: unknown. - Ebola Screening: : Unable to complete screening because patient does not understand. ROS: 04:43 Eyes: Negative for injury, pain, redness, and discharge, ENT: Negative for injury, pkl pain, and discharge, Neck: Negative for injury, pain, and swelling, Cardiovascular: Negative for chest pain, palpitations, and edema, Respiratory: Negative for shortness of breath, cough, wheezing, and pleuritic chest pain, Abdomen/GI: Negative for abdominal pain, nausea, vomiting, diarrhea, and constipation, Back: Negative for injury and pain, : Negative for injury, bleeding, discharge, and swelling, MS/Extremity: Negative for injury and deformity, Skin: Negative for injury, rash, and discoloration, Neuro: Negative for headache, weakness, numbness, tingling, and seizure. 04:43 Psych: Positive for anxiety, depression. Exam: 04:43 Head/Face: Normocephalic, atraumatic. Eyes: Pupils equal round and reactive to light, pkl extra-ocular motions intact. Lids and lashes normal. Conjunctiva and sclera are non-icteric and not injected. Cornea within normal limits. Periorbital areas with no swelling, redness, or edema. ENT: Nares patent. No nasal discharge, no septal abnormalities noted. Tympanic membranes are normal and external auditory canals are clear. Oropharynx with no redness, swelling, or masses, exudates, or evidence of obstruction, uvula midline. Mucous membranes moist. Neck: Trachea midline, no thyromegaly or masses palpated, and no cervical lymphadenopathy. Supple, full range of motion without nuchal rigidity, or vertebral point tenderness. No Meningismus. Chest/axilla: Normal chest wall appearance and motion. Nontender with no deformity. No lesions are appreciated. Cardiovascular: Regular rate and rhythm with a normal S1 and S2. No gallops, murmurs, or rubs. Normal PMI, no JVD. No pulse deficits. Respiratory: Lungs have equal breath sounds bilaterally, clear to auscultation and percussion. No rales, rhonchi or wheezes noted. No increased work of breathing, no retractions or nasal flaring. Abdomen/GI: Soft, non-tender, with normal bowel sounds. No distension or tympany. No guarding or rebound. No evidence of tenderness throughout. Back: No spinal tenderness. No costovertebral tenderness. Full range of motion. Skin: Warm, dry with normal turgor. Normal color with no rashes, no lesions, and no evidence of cellulitis. MS/ Extremity: Pulses equal, no cyanosis. Neurovascular intact. Full, normal range of motion. Neuro: Awake and alert, GCS 15, oriented to person, place, time, and situation. Cranial nerves II-XII grossly intact. Motor strength 5/5 in all extremities. Sensory grossly intact. Cerebellar exam normal. Normal gait. 04:43 Psych: Behavior/mood is uncooperative, Affect is animated, Patient having thoughts of suicide. Vital Signs: 02:45 BP 145 / 76; Pulse 105; Resp 20; Pulse Ox 99% on R/A; Weight 58.97 kg (R); Height 4 ft. fc 11 in. (149.86 cm) (R); Pain 4/10; 04:00 Pulse 75; Resp 16; Pulse Ox 98% on R/A; lp1 06:00 Pulse 71; Resp 16; Temp 97(TE); Pulse Ox 99% on R/A; lp1 02:45 Body Mass Index 26.26 (58.97 kg, 149.86 cm) MDM: 02:51 Patient medically screened. pkl 05:53 Data reviewed: vital signs, nurses notes. ED course: Patient evaluated by [facility] screener. Patient not suicidal. Advised to follow up with [facility] as outpatient. Administered Medications: 03:25 Drug: Geodon 20 mg Route: IM; Site: right deltoid; aa1 04:00 Follow up: Response: No adverse reaction; Marked relief of symptoms; Anxiety decreased lp1 04:03 Drug: Tylenol 1000 mg Route: PO; bb 05:00 Follow up: Response: No adverse reaction lp1 Disposition: 04/07/19 06:33 Discharged to Home. Impression: Depression. - Condition is Stable. - Prescriptions for Ativan 1 mg Oral Tablet - take 1 tablet by ORAL route every 8-12 hours As needed; 10 tablet. - Medication Reconciliation Form, Thank You Letter, Antibiotic Education, Prescription Opioid Use form. - Follow up: Private Physician; When: 1 - 2 days; Reason: Re-evaluation by your physician. - Problem is new. - Symptoms have improved. Signatures: Dispatcher [employer] EDYue Fong RN RN aa1 Jeffrey Herr MD MD pkl Chretien, Felicia, RN RN fc Conchita Marcelo RN RN bb Baxter, Heather, RN RN hb Pena, Laura RN lp1 Corrections: (The following items were deleted from the chart) 05:53 02:51 ETHANOL+C.LAB.BRZ ordered. EDMS EDMS 05:54 03:21 ACETAMINOPHEN+C.LAB.BRZ ordered. EDMS EDMS 05:54 03:21 BASIC METABOLIC PANEL+C.LAB.BRZ ordered. EDMS EDMS 05:54 03:21 HEPATIC FUNCTION+C.LAB.BRZ ordered. EDMS EDMS 05:55 03:21 CBC+H.LAB.BRZ ordered. EDMS EDMS 05:56 02:51 URINE DRUG SCREEN+CHEM UR.LAB.BRZ ordered. EDMS EDMS 05:56 03:21 PROTIME (+INR)+COAG.LAB.BRZ ordered. EDMS EDMS 05:56 03:21 PTT, ACTIVATED+COAG.LAB.BRZ ordered. EDMS EDMS 05:56 03:21 SALICYLATE+C.LAB.BRZ ordered. EDMS EDMS 10:36 03:20 IV Saline Lock ordered. pkl 10:36 03:20 Labs collected and sent ordered. pkl 10:36 03:20 [facility] 10:58 06:33 04/07/2019 06:33 Discharged to Home. Impression: Depression. Condition is Stable. hb Forms are Medication Reconciliation Form, Thank You Letter, Antibiotic Education, Prescription Opioid Use. Follow up: Private Physician; When: 1 - 2 days; Reason: Re-evaluation by your physician. Problem is new. Symptoms have improved. pkl
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
[2019-04-07] MEDS ORDERED: BUPIVACAINE 0.5% PF 10 ML VIAL ONE (07:51)
[2019-04-07] MEDS ORDERED: LIDOCAINE 1% MPF 5 ML VIAL ONE (07:51)
[2019-04-07] MEDS ORDERED: SILVER NITRATE 1 APPL TOP ONE (07:51)
[2019-04-07 11:10] VITALS: BP 145/76
[2019-04-07 11:12] VITALS: TEMP 97; O2SAT 99
== END 2019-04-07 10:58 | disposition home or self-care (01) ==
LOC: ER 02:44
DX: F32.9 Major depressive disorder, single episode, unspecified (principal); G40.909 Epilepsy, unspecified, not intractable, without status epilepticus; F90.9 Attention-deficit hyperactivity disorder, unspecified type; F41.9 Anxiety disorder, unspecified
CPT/HCPCS: 96372; 99284; J3486

== ENCOUNTER 2019-05-23 21:35 | Emergency (ER) | payer SELFPAY ==
--- OUTSIDE RECORDS SUMMARY | 2019-05-23 21:38 | XMS REPORT ---
:1975 [facility] [address] [place] [address] Care Team Providers Name Role Phone Unavailable [...] code=Valproic Acid Level) 57.6 ug/mL(g) 50.0-100.0 Hemoglobin [id number] 09:36:00 Test Item Value Reference Range Comments Hemoglobin A1c (test 5.0 % 4.8-5.9 Non Diabetic 4.8-5.9%Diabetic code=Hemoglobin A1c) <7.0% CT Shoulder w/o Contrast [id number] 16:49:13Patient: BHUMIKA JONES Date/Time01/09/2019 16:14 CDTReason for [...] FSigned (Electronic Signature): 01/09/2019 4: 49 pmRPR [id number] 21:33:20 Test Item Value Reference Range Comments RPR Qual (test code=RPR Qual) Non-Reactive Non-Reactive Reactive Control (test code=Reactive Control) Reactive Weak Reactive Control (test code=Weak Reactive Weak Reactive Control) Non-Reactive Control (test code=Non-Reactive Non-Reactive Control) Lot # (test code=Lot #) [id number] Expiration Dt (test code=Expiration Dt) 04-23-2020 XR Shoulder Complete 2+ Views [id number] 15:41:25Patient: BHUMIKA JONES Date/Time2018 15:25 CDTReason for [...] ( Electronic Signature): 01/07/2019 3:41 pmThyroid Stimulating [id number] 03:07:04 Test Item Value Reference Range Comments TSH (test code=TSH) 9.650 mIU/mL 0.270-4.200 Lipid [id number] 03:07:03 Test Item Value Reference Range Comments Cholesterol Total (test 199 mg/dL 0-200 RISK OF HEART DISEASEPublished code=Cholesterol Total) by [place] [employer] Analyte Optimal Borderline Increased RiskCHOL [...] is LDL/HDL Ratio=LDL Calc/HDL Chol HCG Qualitative [id number] 02:33:13 Test Item Value Reference Range Comments HCG, Serum Qual (test code=HCG, Serum Qual) Negative Lot # (test code=Lot #) [id number] Expiration Dt (test code=Expiration Dt) 2020-04-23 Neg Control (test code=Neg Control) Negative Pos Control (test code=Pos Control) Positive Internal QC (test code=Internal QC) Acceptable Drugs of Abuse Urine [id number] 18:58:11 Test Item Value Reference Range Comments [...] (test Negative Negative code=Cannabinoid Screen Ur) Alcohol [id number] 18:47:34 Test Item Value Reference Range Comments Ethanol Level (test <0.00 g/dL 0.00-0.01 Intoxicated 0.080 g/dL or more code=Ethanol Level) Ethanol Inst (test <0 code=Ethanol Inst) Comprehensive Metabolic [id number] 18:47:33 Test Item Value Reference Range Comments [...] (test code=A/G Ratio) 1.0 ratio Comprehensive Metabolic [id number] 18:47:33 Test Item Value Reference Range Comments [...] is not provided, and the patient is -[place], multiply by 1.212. If sex is not [...] the National Kidney Foundation, http://nkdep.nih.gov Comprehensive Metabolic [id number] 18:47:33 Test Item Value Reference Range Comments [...] is not provided, and the patient is -[place], multiply by 1.212. If sex is not [...] is not provided, and the patient is -[place], multiply by 1.212. If sex is not [...] Kidney Foundation, http://nkdep.nih.gov Complete Blood Count with [id number] 18:15:23 Test Item Value Reference Range Comments [...] x10 IPF (test code=IPF) 0 % Automated [id number] 18:15:23 Test Item Value Reference Range Comments Neutro Auto (test code=Neutro Auto) 42.1 % 36.0-70.0 Lymph Auto (test code=Lymph Auto) 40.0 % 12.0-44.0 [place] Auto (test code=[place] Auto) 12.2 % 0.0-11.0 Eos, Auto (test code=Eos, Auto) 4.9 % 0.0-7.0 Basophil Auto (test code=Basophil Auto) 0.6 % 0.0-2.0 Neutro Absolute (test code=Neutro Absolute) 2.2 x10 1.6-7.4 Lymph Absolute (test code=Lymph Absolute) 2.06 x10 .50-4.60 [place] Absolute (test code=[place] Absolute) .63 x10 .00-1.20 Eos Absolute (test code=Eos Absolute) 0.25 x10 0.00-0.74 Baso Absolute (test code=Baso Absolute) 0.03 x10 0.00-0.21 IG [id number] 18:15:23 Test Item Value Reference Range Comments IG (test code=IG) 0.2 % 0.0-5.0 IG Abs (test code=IG Abs) 0 x10
--- NOTE | 2019-05-23 22:05 | EDPHYS ---
Physician Documentation [facility] Name: Sidra Hodges Age: 44 yrs Sex: Female : 1975 Arrival Date: 05/23/2019 Time: 21:52 Bed 16 Private MD: ED Physician Pascual Lundy HPI: 05/23 21:59 This 44 yrs old Female presents to ER via EMS with complaints of Anxiety. ry 21:59 The patient complains of pain to the top of head, forehead, left frontal area, left ry side of the back of head, left occipital area, left base of the skull, right frontal area, right side of the back of head, right occipital area and right base of the skull. The patient describes the headache as aching. Onset: The symptoms/episode began/occurred just prior to arrival, today. The patient presents to the emergency department with anxiety, depression. Onset: The symptoms/episode began/occurred just prior to arrival. Past psychiatric history: Prior diagnosis: bipolar disorder. Associated signs and symptoms: The patient has no apparent associated signs or symptoms. Severity of symptoms: At its worst the pain was mild, moderate, in the emergency department the pain has improved, moderately. Headache History: The patient has had previous headaches and this one is similar to previous episodes. The symptoms are alleviated by remaining still. Historical: - Allergies: 21:59 NKA; ea - Home Meds: 21:59 Risperdal Oral [Active]; oxcarbazepine Oral [Active]; Hydroxyzine Oral [Active]; ea divalproex Oral [Active]; - PMHx: 21:59 ADD/ADHD; Anxiety; Bipolar disorder; hemorrhoids; Seizures; ea - Immunization history:: Adult Immunizations up to date. - Social history:: Smoking status: Patient/guardian denies using tobacco. - Ebola Screening: : No symptoms or risks identified at this time. - Family history:: not pertinent. ROS: 21:59 Constitutional: Negative for fever, chills, and weight loss, Eyes: Negative for injury, ry pain, redness, and discharge, ENT: Negative for injury, pain, and discharge, Neck: Negative for injury, pain, and swelling, Cardiovascular: Negative for chest pain, palpitations, and edema, Respiratory: Negative for shortness of breath, cough, wheezing, and pleuritic chest pain, Abdomen/GI: Negative for abdominal pain, nausea, vomiting, diarrhea, and constipation, Back: Negative for injury and pain, : Negative for injury, bleeding, discharge, and swelling, MS/Extremity: Negative for injury and deformity, Skin: Negative for injury, rash, and discoloration, Neuro: Negative for headache, weakness, numbness, tingling, and seizure, Allergy/Immunology: Negative for hives, rash, and allergies, Endocrine: Negative for neck swelling, polydipsia, polyuria, polyphagia, and marked weight changes, Hematologic/Lymphatic: Negative for swollen nodes, abnormal bleeding, and unusual bruising. 21:59 Psych: Positive for anxiety, depression. Exam: 21:59 Constitutional: This is a well developed, well nourished patient who is awake, alert, ry and in no acute distress. Head/Face: Normocephalic, atraumatic. Eyes: Pupils equal round and reactive to light, extra-ocular motions intact. Lids and lashes normal. Conjunctiva and sclera are non-icteric and not injected. Cornea within normal limits. Periorbital areas with no swelling, redness, or edema. ENT: Nares patent. No nasal discharge, no septal abnormalities noted. Tympanic membranes are normal and external auditory canals are clear. Oropharynx with no redness, swelling, or masses, exudates, or evidence of obstruction, uvula midline. Mucous membranes moist. Neck: Trachea midline, no thyromegaly or masses palpated, and no cervical lymphadenopathy. Supple, full range of motion without nuchal rigidity, or vertebral point tenderness. No Meningismus. Chest/axilla: Normal chest wall appearance and motion. Nontender with no deformity. No lesions are appreciated. Cardiovascular: Regular rate and rhythm with a normal S1 and S2. No gallops, murmurs, or rubs. Normal PMI, no JVD. No pulse deficits. Respiratory: Lungs have equal breath sounds bilaterally, clear to auscultation and percussion. No rales, rhonchi or wheezes noted. No increased work of breathing, no retractions or nasal flaring. Abdomen/GI: Soft, non-tender, with normal bowel sounds. No distension or tympany. No guarding or rebound. No evidence of tenderness throughout. Back: No spinal tenderness. No costovertebral tenderness. Full range of motion. Female : Normal external genitalia. Skin: Warm, dry with normal turgor. Normal color with no rashes, no lesions, and no evidence of cellulitis. MS/ Extremity: Pulses equal, no cyanosis. Neurovascular intact. Full, normal range of motion. Neuro: Awake and alert, GCS 15, oriented to person, place, time, and situation. Cranial nerves II-XII grossly intact. Motor strength 5/5 in all extremities. Sensory grossly intact. Cerebellar exam normal. Normal gait. Psych: Awake, alert, with orientation to person, place and time. Behavior, mood, and affect are within normal limits. Vital Signs: 21:59 BP 129 / 79; Pulse 73; Resp 18; Temp 98.9; Pulse Ox 97% on R/A; ea MDM: 21:58 Patient medically screened. [facility] 22:02 Data reviewed: vital signs, nurses notes. [facility] Administered Medications: 22:37 Drug: Tylenol 650 mg Route: PO; tr5 22:38 Drug: Ativan 1 mg Route: PO; tr5 Disposition: 05/23/19 22:04 Discharged to Home. Impression: Bipolar disorder, Anxiety disorder, unspecified, Headache. - Condition is Stable. - Discharge Instructions: Panic Attacks, General Headache Without Cause, Bipolar Disorder, Panic Attacks, Lgky-lz-Mzfz, General Headache Without Cause, Skol-iz-Ouie. - Prescriptions for Benadryl 25 mg Oral Capsule - take 1 capsule by ORAL route every 6 hours As needed; 30 tablet. - Medication Reconciliation Form, Thank You Letter, Antibiotic Education, Prescription Opioid Use form. - Follow up: Private Physician; When: 2 - 3 days; Reason: Recheck today's complaints, Continuance of care, Re-evaluation by your physician. - Problem is new. - Symptoms have improved. Signatures: Pascual Lundy MD MD cha Antunez, Elena, RN RN ea Rodriguez, Tommie, RN RN tr5 Corrections: (The following items were deleted from the chart) 22:44 22:04 05/23/2019 22:04 Discharged to Home. Impression: Bipolar disorder; Anxiety tr5 disorder, unspecified; Headache. Condition is Stable. Forms are Medication Reconciliation Form, Thank You Letter, Antibiotic Education, Prescription Opioid Use. Follow up: Private Physician; When: 2 - 3 days; Reason: Recheck today's complaints, Continuance of care, Re-evaluation by your physician. Problem is new. Symptoms have improved. ry
--- NOTE | 2019-05-23 22:05 | ER ---
Nurse's Notes [facility] Name: Sidra Hodges Age: 44 yrs Sex: Female : 1975 Arrival Date: 05/23/2019 Time: 21:52 Bed 16 Private MD: Diagnosis: Bipolar disorder;Anxiety disorder, unspecified;Headache Presentation: 05/23 21:45 Presenting complaint: EMS states: Reports they were called by PD, pt was complaining of ea anxiety, reported to EMS that she was kicked out by her family and had no place to stay. Transition of care: patient was not received from another setting of care. Onset of symptoms was May 23, 2019. Risk Assessment: Do you want to hurt yourself or someone else? Patient reports no desire to harm self or others. Initial Sepsis Screen: Does the patient meet any 2 criteria? No. Patient's initial sepsis screen is negative. Does the patient have a suspected source of infection? No. Patient's initial sepsis screen is negative. Care prior to arrival: None. 21:45 Method Of Arrival: EMS: [facility] 21:45 Acuity: CARMITA 4 ea Historical: - Allergies: 21:59 NKA; ea - Home Meds: 21:59 Risperdal Oral [Active]; oxcarbazepine Oral [Active]; Hydroxyzine Oral [Active]; ea divalproex Oral [Active]; - PMHx: 21:59 ADD/ADHD; Anxiety; Bipolar disorder; hemorrhoids; Seizures; ea - Immunization history:: Adult Immunizations up to date. - Social history:: Smoking status: Patient/guardian denies using tobacco. - Ebola Screening: : No symptoms or risks identified at this time. - Family history:: not pertinent. Screenin:57 Abuse screen: Denies threats or abuse. Nutritional screening: No deficits noted. ea Tuberculosis screening: No symptoms or risk factors identified. Fall Risk None identified. Assessment: 22:00 General: Appears in no apparent distress. Behavior is calm, cooperative, appropriate tr5 for age. General: Reports Anxiety. Pain: Denies pain. Neuro: Level of Consciousness is awake, alert, obeys commands, Oriented to person, place, time. Cardiovascular: Heart tones present Capillary refill < 3 seconds Pulses are all present. Edema is absent. Respiratory: Airway is patent Respiratory effort is even, unlabored, Respiratory pattern is regular, symmetrical. GI: No signs and/or symptoms were reported involving the gastrointestinal system. : No signs and/or symptoms were reported regarding the genitourinary system. EENT: No signs and/or symptoms were reported regarding the EENT system. Derm: No signs and/or symptoms reported regarding the dermatologic system. Musculoskeletal: No signs and/or symptoms reported regarding the musculoskeletal system. Vital Signs: 21:59 BP 129 / 79; Pulse 73; Resp 18; Temp 98.9; Pulse Ox 97% on R/A; ea ED Course: 21:52 Patient arrived in ED. ea 21:57 Triage completed. chidi 21:58 Pascual Lundy MD is Attending Physician. ry 21:59 Arm band placed on Patient placed in an exam room, on a stretcher, on pulse oximetry. ea 21:59 Patient has correct armband on for positive identification. Bed in low position. Call ea light in reach. Side rails up X 1. 22:18 Tramaine Patton, RN is Primary Nurse. tr5 22:42 No provider procedures requiring assistance completed. Patient did not have IV access tr5 during this emergency room visit. Administered Medications: 22:37 Drug: Tylenol 650 mg Route: PO; tr5 22:38 Drug: Ativan 1 mg Route: PO; tr5 Outcome: 22:04 Discharge ordered by . ry 22:42 Discharged to home ambulatory. tr5 22:42 Condition: stable 22:42 Discharge instructions given to patient, Instructed on discharge instructions, follow up and referral plans. medication usage, Demonstrated understanding of instructions, follow-up care, medications, Prescriptions given X 1. 22:44 Patient left the ED. tr5 Signatures: Pascual Lundy MD MD cha Antunez, Elena, RN RN Tramaine Arshad RN RN tr5
[2019-05-23] MEDS ORDERED: ACETAMINOPHEN 325 MG TABLET ONE (22:22)
[2019-05-23] MEDS ORDERED: LORAZEPAM 1 MG TABLET ONE (22:22)
[2019-05-23 22:58] VITALS: BP 129/79; TEMP 98.9; O2SAT 97
== END 2019-05-23 22:44 | disposition home or self-care (01) ==
LOC: ER 21:35
DX: F41.9 Anxiety disorder, unspecified (principal); F31.9 Bipolar disorder, unspecified; F90.9 Attention-deficit hyperactivity disorder, unspecified type
CPT/HCPCS: 99284

== ENCOUNTER 2019-06-13 16:42 | Emergency (ER) | payer SELFPAY ==
--- OUTSIDE RECORDS SUMMARY | 2019-06-13 16:45 | XMS REPORT ---
:1975 [facility] Address [address] [place] [address] Care Team Providers Name Role Phone Unavailable [...] code=Valproic Acid Level) 57.6 ug/mL(g) 50.0-100.0 Hemoglobin [id number] 09:36:00 Test Item Value Reference Range Comments Hemoglobin A1c (test 5.0 % 4.8-5.9 Non Diabetic 4.8-5.9%Diabetic code=Hemoglobin A1c) <7.0% CT Shoulder w/o Contrast [id number] 16:49:13Patient: BHUMIKA JONES Date/Time01/09/2019 16:14 CDTReason for [...] FSigned (Electronic Signature): 01/09/2019 4: 49 pmRPR [id number] 21:33:20 Test Item Value Reference Range Comments RPR Qual (test code=RPR Qual) Non-Reactive Non-Reactive Reactive Control (test code=Reactive Control) Reactive Weak Reactive Control (test code=Weak Reactive Weak Reactive Control) Non-Reactive Control (test code=Non-Reactive Non-Reactive Control) Lot # (test code=Lot #) [id number] Expiration Dt (test code=Expiration Dt) 04-23-2020 XR Shoulder Complete 2+ Views [id number] 15:41:25Patient: BHUMIKA JONES Date/Time2018 15:25 CDTReason for [...] ( Electronic Signature): 01/07/2019 3:41 pmThyroid Stimulating [id number] 03:07:04 Test Item Value Reference Range Comments TSH (test code=TSH) 9.650 mIU/mL 0.270-4.200 Lipid [id number] 03:07:03 Test Item Value Reference Range Comments Cholesterol Total (test 199 mg/dL 0-200 RISK OF HEART DISEASEPublished code=Cholesterol Total) by [place] [employer] Analyte Optimal Borderline Increased RiskCHOL [...] is LDL/HDL Ratio=LDL Calc/HDL Chol HCG Qualitative [id number] 02:33:13 Test Item Value Reference Range Comments HCG, Serum Qual (test code=HCG, Serum Qual) Negative Lot # (test code=Lot #) [id number] Expiration Dt (test code=Expiration Dt) 2020-04-23 Neg Control (test code=Neg Control) Negative Pos Control (test code=Pos Control) Positive Internal QC (test code=Internal QC) Acceptable Drugs of Abuse Urine [id number] 18:58:11 Test Item Value Reference Range Comments [...] (test Negative Negative code=Cannabinoid Screen Ur) Alcohol [id number] 18:47:34 Test Item Value Reference Range Comments Ethanol Level (test <0.00 g/dL 0.00-0.01 Intoxicated 0.080 g/dL or more code=Ethanol Level) Ethanol Inst (test <0 code=Ethanol Inst) Comprehensive Metabolic [id number] 18:47:33 Test Item Value Reference Range Comments [...] (test code=A/G Ratio) 1.0 ratio Comprehensive Metabolic [id number] 18:47:33 Test Item Value Reference Range Comments [...] is not provided, and the patient is -[place], multiply by 1.212. If sex is not [...] the National Kidney Foundation, http://nkdep.nih.gov Comprehensive Metabolic [id number] 18:47:33 Test Item Value Reference Range Comments [...] is not provided, and the patient is -[place], multiply by 1.212. If sex is not [...] is not provided, and the patient is -[place], multiply by 1.212. If sex is not [...] Kidney Foundation, http://nkdep.nih.gov Complete Blood Count with [id number] 18:15:23 Test Item Value Reference Range Comments [...] x10 IPF (test code=IPF) 0 % Automated [id number] 18:15:23 Test Item Value Reference Range Comments Neutro Auto (test code=Neutro Auto) 42.1 % 36.0-70.0 Lymph Auto (test code=Lymph Auto) 40.0 % 12.0-44.0 [place] Auto (test code=[place] Auto) 12.2 % 0.0-11.0 Eos, Auto (test code=Eos, Auto) 4.9 % 0.0-7.0 Basophil Auto (test code=Basophil Auto) 0.6 % 0.0-2.0 Neutro Absolute (test code=Neutro Absolute) 2.2 x10 1.6-7.4 Lymph Absolute (test code=Lymph Absolute) 2.06 x10 .50-4.60 [place] Absolute (test code=[place] Absolute) .63 x10 .00-1.20 Eos Absolute (test code=Eos Absolute) 0.25 x10 0.00-0.74 Baso Absolute (test code=Baso Absolute) 0.03 x10 0.00-0.21 IG [id number] 18:15:23 Test Item Value Reference Range Comments IG (test code=IG) 0.2 % 0.0-5.0 IG Abs (test code=IG Abs) 0 x10
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
[2019-06-13] MEDS ORDERED: CLINDAMYCIN IV 150 MG/ML (4 mL) VIAL ONE (17:54)
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
[2019-06-13 20:49] VITALS: TEMP 97.6; O2SAT 98
[2019-06-13 20:50] VITALS: BP 127/89
== END 2019-06-13 20:10 | disposition home or self-care (01) ==
LOC: ER 16:42
DX: T81.31XA Disruption of external operation (surgical) wound, not elsewhere classified, initial encounter (principal); Z48.01 Encounter for change or removal of surgical wound dressing
CPT/HCPCS: 96372; 99284; S0077

== ENCOUNTER 2019-06-19 20:32 | Emergency (ER) | payer SELFPAY ==
--- OUTSIDE RECORDS SUMMARY | 2019-06-19 20:35 | XMS REPORT ---
:1975 [facility] Address [address] [place] [address] Care Team Providers Name Role Phone Unavailable [...] code=Valproic Acid Level) 57.6 ug/mL(g) 50.0-100.0 Hemoglobin [id number] 09:36:00 Test Item Value Reference Range Comments Hemoglobin A1c (test 5.0 % 4.8-5.9 Non Diabetic 4.8-5.9%Diabetic code=Hemoglobin A1c) <7.0% CT Shoulder w/o Contrast [id number] 16:49:13Patient: BHUMIKA JONES Date/Time01/09/2019 16:14 CDTReason for [...] FSigned (Electronic Signature): 01/09/2019 4: 49 pmRPR [id number] 21:33:20 Test Item Value Reference Range Comments RPR Qual (test code=RPR Qual) Non-Reactive Non-Reactive Reactive Control (test code=Reactive Control) Reactive Weak Reactive Control (test code=Weak Reactive Weak Reactive Control) Non-Reactive Control (test code=Non-Reactive Non-Reactive Control) Lot # (test code=Lot #) [id number] Expiration Dt (test code=Expiration Dt) 04-23-2020 XR Shoulder Complete 2+ Views [id number] 15:41:25Patient: BHUMIKA JONES Date/Time2018 15:25 CDTReason for [...] ( Electronic Signature): 01/07/2019 3:41 pmThyroid Stimulating [id number] 03:07:04 Test Item Value Reference Range Comments TSH (test code=TSH) 9.650 mIU/mL 0.270-4.200 Lipid [id number] 03:07:03 Test Item Value Reference Range Comments Cholesterol Total (test 199 mg/dL 0-200 RISK OF HEART DISEASEPublished code=Cholesterol Total) by [place] [employer] Analyte Optimal Borderline Increased RiskCHOL [...] is LDL/HDL Ratio=LDL Calc/HDL Chol HCG Qualitative [id number] 02:33:13 Test Item Value Reference Range Comments HCG, Serum Qual (test code=HCG, Serum Qual) Negative Lot # (test code=Lot #) [id number] Expiration Dt (test code=Expiration Dt) 2020-04-23 Neg Control (test code=Neg Control) Negative Pos Control (test code=Pos Control) Positive Internal QC (test code=Internal QC) Acceptable Drugs of Abuse Urine [id number] 18:58:11 Test Item Value Reference Range Comments [...] (test Negative Negative code=Cannabinoid Screen Ur) Alcohol [id number] 18:47:34 Test Item Value Reference Range Comments Ethanol Level (test <0.00 g/dL 0.00-0.01 Intoxicated 0.080 g/dL or more code=Ethanol Level) Ethanol Inst (test <0 code=Ethanol Inst) Comprehensive Metabolic [id number] 18:47:33 Test Item Value Reference Range Comments [...] (test code=A/G Ratio) 1.0 ratio Comprehensive Metabolic [id number] 18:47:33 Test Item Value Reference Range Comments [...] is not provided, and the patient is -[place], multiply by 1.212. If sex is not [...] the National Kidney Foundation, http://nkdep.nih.gov Comprehensive Metabolic [id number] 18:47:33 Test Item Value Reference Range Comments [...] is not provided, and the patient is -[place], multiply by 1.212. If sex is not [...] is not provided, and the patient is -[place], multiply by 1.212. If sex is not [...] Kidney Foundation, http://nkdep.nih.gov Complete Blood Count with [id number] 18:15:23 Test Item Value Reference Range Comments [...] x10 IPF (test code=IPF) 0 % Automated [id number] 18:15:23 Test Item Value Reference Range Comments Neutro Auto (test code=Neutro Auto) 42.1 % 36.0-70.0 Lymph Auto (test code=Lymph Auto) 40.0 % 12.0-44.0 [place] Auto (test code=[place] Auto) 12.2 % 0.0-11.0 Eos, Auto (test code=Eos, Auto) 4.9 % 0.0-7.0 Basophil Auto (test code=Basophil Auto) 0.6 % 0.0-2.0 Neutro Absolute (test code=Neutro Absolute) 2.2 x10 1.6-7.4 Lymph Absolute (test code=Lymph Absolute) 2.06 x10 .50-4.60 [place] Absolute (test code=[place] Absolute) .63 x10 .00-1.20 Eos Absolute (test code=Eos Absolute) 0.25 x10 0.00-0.74 Baso Absolute (test code=Baso Absolute) 0.03 x10 0.00-0.21 IG [id number] 18:15:23 Test Item Value Reference Range Comments IG (test code=IG) 0.2 % 0.0-5.0 IG Abs (test code=IG Abs) 0 x10
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
[2019-06-20 00:28] VITALS: TEMP 98.5; O2SAT 100
[2019-06-20 00:30] VITALS: BP 105/53
== END 2019-06-19 23:33 | disposition home or self-care (01) ==
LOC: ER 20:32
DX: Z48.01 Encounter for change or removal of surgical wound dressing (principal); F90.9 Attention-deficit hyperactivity disorder, unspecified type; F41.9 Anxiety disorder, unspecified; G40.909 Epilepsy, unspecified, not intractable, without status epilepticus
CPT/HCPCS: 99283

== ENCOUNTER 2019-06-24 15:59 | Emergency (ER) | payer SELFPAY ==
--- OUTSIDE RECORDS SUMMARY | 2019-06-24 16:02 | XMS REPORT ---
:1975 Author Organization [facility] Address [address] [place] [address] Care Team Providers Name Role Phone Unavailable [...] code=Valproic Acid Level) 57.6 ug/mL(g) 50.0-100.0 Hemoglobin [id number] 09:36:00 Test Item Value Reference Range Comments Hemoglobin A1c (test 5.0 % 4.8-5.9 Non Diabetic 4.8-5.9%Diabetic code=Hemoglobin A1c) <7.0% CT Shoulder w/o Contrast [id number] 16:49:13Patient: BHUMIKA JONES Date/Time01/09/2019 16:14 CDTReason for [...] FSigned (Electronic Signature): 01/09/2019 4: 49 pmRPR [id number] 21:33:20 Test Item Value Reference Range Comments RPR Qual (test code=RPR Qual) Non-Reactive Non-Reactive Reactive Control (test code=Reactive Control) Reactive Weak Reactive Control (test code=Weak Reactive Weak Reactive Control) Non-Reactive Control (test code=Non-Reactive Non-Reactive Control) Lot # (test code=Lot #) [id number] Expiration Dt (test code=Expiration Dt) 04-23-2020 XR Shoulder Complete 2+ Views [id number] 15:41:25Patient: BHUMIKA JONES Date/Time2018 15:25 CDTReason for [...] ( Electronic Signature): 01/07/2019 3:41 pmThyroid Stimulating [id number] 03:07:04 Test Item Value Reference Range Comments TSH (test code=TSH) 9.650 mIU/mL 0.270-4.200 Lipid [id number] 03:07:03 Test Item Value Reference Range Comments Cholesterol Total (test 199 mg/dL 0-200 RISK OF HEART DISEASEPublished code=Cholesterol Total) by [employer] Analyte Optimal Borderline Increased RiskCHOL [...] is LDL/HDL Ratio=LDL Calc/HDL Chol HCG Qualitative [id number] 02:33:13 Test Item Value Reference Range Comments HCG, Serum Qual (test code=HCG, Serum Qual) Negative Lot # (test code=Lot #) [id number] Expiration Dt (test code=Expiration Dt) 2020-04-23 Neg Control (test code=Neg Control) Negative Pos Control (test code=Pos Control) Positive Internal QC (test code=Internal QC) Acceptable Drugs of Abuse Urine [id number] 18:58:11 Test Item Value Reference Range Comments [...] (test Negative Negative code=Cannabinoid Screen Ur) Alcohol [id number] 18:47:34 Test Item Value Reference Range Comments Ethanol Level (test <0.00 g/dL 0.00-0.01 Intoxicated 0.080 g/dL or more code=Ethanol Level) Ethanol Inst (test <0 code=Ethanol Inst) Comprehensive Metabolic [id number] 18:47:33 Test Item Value Reference Range Comments [...] (test code=A/G Ratio) 1.0 ratio Comprehensive Metabolic [id number] 18:47:33 Test Item Value Reference Range Comments [...] is not provided, and the patient is -Spanish, multiply by 1.212. If sex is not [...] the National Kidney Foundation, http://nkdep.nih.gov Comprehensive Metabolic [id number] 18:47:33 Test Item Value Reference Range Comments [...] is not provided, and the patient is -Spanish, multiply by 1.212. If sex is not [...] is not provided, and the patient is -Spanish, multiply by 1.212. If sex is not [...] Kidney Foundation, http://nkdep.nih.gov Complete Blood Count with [id number] 18:15:23 Test Item Value Reference Range Comments [...] x10 IPF (test code=IPF) 0 % Automated [id number] 18:15:23 Test Item Value Reference Range Comments Neutro Auto (test code=Neutro Auto) 42.1 % 36.0-70.0 Lymph Auto (test code=Lymph Auto) 40.0 % 12.0-44.0 Racine Auto (test code=Racine Auto) 12.2 % 0.0-11.0 Eos, Auto (test code=Eos, Auto) 4.9 % 0.0-7.0 Basophil Auto (test code=Basophil Auto) 0.6 % 0.0-2.0 Neutro Absolute (test code=Neutro Absolute) 2.2 x10 1.6-7.4 Lymph Absolute (test code=Lymph Absolute) 2.06 x10 .50-4.60 Racine Absolute (test code=Racine Absolute) .63 x10 .00-1.20 Eos Absolute (test code=Eos Absolute) 0.25 x10 0.00-0.74 Baso Absolute (test code=Baso Absolute) 0.03 x10 0.00-0.21 IG [id number] 18:15:23 Test Item Value Reference Range Comments IG (test code=IG) 0.2 % 0.0-5.0 IG Abs (test code=IG Abs) 0 x10
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
[2019-06-24 17:34] VITALS: BP 102/54; TEMP 97.9; O2SAT 100
== END 2019-06-24 17:29 | disposition home or self-care (01) ==
LOC: ER 15:59
DX: Z48.00 Encounter for change or removal of nonsurgical wound dressing (principal); F90.9 Attention-deficit hyperactivity disorder, unspecified type; F31.9 Bipolar disorder, unspecified; G40.909 Epilepsy, unspecified, not intractable, without status epilepticus
CPT/HCPCS: 99284

== ENCOUNTER 2019-06-29 19:31 | Emergency (ER) | payer SELFPAY ==
--- OUTSIDE RECORDS SUMMARY | 2019-06-29 19:33 | XMS REPORT ---
:1975 [facility] Address [address] [place] [address] Care Team Providers Name Role Phone Unavailable [...] code=Valproic Acid Level) 57.6 ug/mL(g) 50.0-100.0 Hemoglobin [id number] 09:36:00 Test Item Value Reference Range Comments Hemoglobin A1c (test 5.0 % 4.8-5.9 Non Diabetic 4.8-5.9%Diabetic code=Hemoglobin A1c) <7.0% CT Shoulder w/o Contrast [id number] 16:49:13Patient: BHUMIKA JONES Date/Time01/09/2019 16:14 CDTReason for [...] FSigned (Electronic Signature): 01/09/2019 4: 49 pmRPR [id number] 21:33:20 Test Item Value Reference Range Comments RPR Qual (test code=RPR Qual) Non-Reactive Non-Reactive Reactive Control (test code=Reactive Control) Reactive Weak Reactive Control (test code=Weak Reactive Weak Reactive Control) Non-Reactive Control (test code=Non-Reactive Non-Reactive Control) Lot # (test code=Lot #) [id number] Expiration Dt (test code=Expiration Dt) 04-23-2020 XR Shoulder Complete 2+ Views [id number] 15:41:25Patient: BHUMIKA JONES Date/Time2018 15:25 CDTReason for [...] ( Electronic Signature): 01/07/2019 3:41 pmThyroid Stimulating [id number] 03:07:04 Test Item Value Reference Range Comments TSH (test code=TSH) 9.650 mIU/mL 0.270-4.200 Lipid [id number] 03:07:03 Test Item Value Reference Range Comments Cholesterol Total (test 199 mg/dL 0-200 RISK OF HEART DISEASEPublished code=Cholesterol Total) by [place] Analyte Optimal Borderline Increased RiskCHOL [...] is LDL/HDL Ratio=LDL Calc/HDL Chol HCG Qualitative [id number] 02:33:13 Test Item Value Reference Range Comments HCG, Serum Qual (test code=HCG, Serum Qual) Negative Lot # (test code=Lot #) [id number] Expiration Dt (test code=Expiration Dt) 2020-04-23 Neg Control (test code=Neg Control) Negative Pos Control (test code=Pos Control) Positive Internal QC (test code=Internal QC) Acceptable Drugs of Abuse Urine [id number] 18:58:11 Test Item Value Reference Range Comments [...] (test Negative Negative code=Cannabinoid Screen Ur) Alcohol [id number] 18:47:34 Test Item Value Reference Range Comments Ethanol Level (test <0.00 g/dL 0.00-0.01 Intoxicated 0.080 g/dL or more code=Ethanol Level) Ethanol Inst (test <0 code=Ethanol Inst) Comprehensive Metabolic [id number] 18:47:33 Test Item Value Reference Range Comments [...] (test code=A/G Ratio) 1.0 ratio Comprehensive Metabolic [id number] 18:47:33 Test Item Value Reference Range Comments [...] is not provided, and the patient is -Guyanese, multiply by 1.212. If sex is not [...] the National Kidney Foundation, http://nkdep.nih.gov Comprehensive Metabolic [id number] 18:47:33 Test Item Value Reference Range Comments [...] is not provided, and the patient is -Guyanese, multiply by 1.212. If sex is not [...] is not provided, and the patient is -Guyanese, multiply by 1.212. If sex is not [...] Kidney Foundation, http://nkdep.nih.gov Complete Blood Count with [id number] 18:15:23 Test Item Value Reference Range Comments [...] x10 IPF (test code=IPF) 0 % Automated [id number] 18:15:23 Test Item Value Reference Range Comments Neutro Auto (test code=Neutro Auto) 42.1 % 36.0-70.0 Lymph Auto (test code=Lymph Auto) 40.0 % 12.0-44.0 Yell Auto (test code=Yell Auto) 12.2 % 0.0-11.0 Eos, Auto (test code=Eos, Auto) 4.9 % 0.0-7.0 Basophil Auto (test code=Basophil Auto) 0.6 % 0.0-2.0 Neutro Absolute (test code=Neutro Absolute) 2.2 x10 1.6-7.4 Lymph Absolute (test code=Lymph Absolute) 2.06 x10 .50-4.60 Yell Absolute (test code=Yell Absolute) .63 x10 .00-1.20 Eos Absolute (test code=Eos Absolute) 0.25 x10 0.00-0.74 Baso Absolute (test code=Baso Absolute) 0.03 x10 0.00-0.21 IG [id number] 18:15:23 Test Item Value Reference Range Comments IG (test code=IG) 0.2 % 0.0-5.0 IG Abs (test code=IG Abs) 0 x10
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
[2019-06-29 21:54] VITALS: BP 119/79; TEMP 97.3; O2SAT 100
== END 2019-06-29 21:35 | disposition left against medical advice (07) ==
LOC: ER 19:31
DX: Z02.9 Encounter for administrative examinations, unspecified (principal)
CPT/HCPCS: 99281

== ENCOUNTER 2019-06-30 22:24 | Emergency (ER) | payer SELFPAY ==
--- OUTSIDE RECORDS SUMMARY | 2019-06-30 22:27 | XMS REPORT ---
:1975 [facility] Address [address] [place] [address] Care Team Providers Name Role Phone Unavailable [...] code=Valproic Acid Level) 57.6 ug/mL(g) 50.0-100.0 Hemoglobin [id number] 09:36:00 Test Item Value Reference Range Comments Hemoglobin A1c (test 5.0 % 4.8-5.9 Non Diabetic 4.8-5.9%Diabetic code=Hemoglobin A1c) <7.0% CT Shoulder w/o Contrast [id number] 16:49:13Patient: BHUMIKA JONES Date/Time01/09/2019 16:14 CDTReason for [...] FSigned (Electronic Signature): 01/09/2019 4: 49 pmRPR [id number] 21:33:20 Test Item Value Reference Range Comments RPR Qual (test code=RPR Qual) Non-Reactive Non-Reactive Reactive Control (test code=Reactive Control) Reactive Weak Reactive Control (test code=Weak Reactive Weak Reactive Control) Non-Reactive Control (test code=Non-Reactive Non-Reactive Control) Lot # (test code=Lot #) [id number] Expiration Dt (test code=Expiration Dt) 04-23-2020 XR Shoulder Complete 2+ Views [id number] 15:41:25Patient: BHUMIKA JONES Date/Time2018 15:25 CDTReason for [...] ( Electronic Signature): 01/07/2019 3:41 pmThyroid Stimulating [id number] 03:07:04 Test Item Value Reference Range Comments TSH (test code=TSH) 9.650 mIU/mL 0.270-4.200 Lipid [id number] 03:07:03 Test Item Value Reference Range Comments Cholesterol Total (test 199 mg/dL 0-200 RISK OF HEART DISEASEPublished code=Cholesterol Total) by [employer] Heart [employer] Analyte Optimal Borderline Increased RiskCHOL [...] is LDL/HDL Ratio=LDL Calc/HDL Chol HCG Qualitative [id number] 02:33:13 Test Item Value Reference Range Comments HCG, Serum Qual (test code=HCG, Serum Qual) Negative Lot # (test code=Lot #) [id number] Expiration Dt (test code=Expiration Dt) 2020-04-23 Neg Control (test code=Neg Control) Negative Pos Control (test code=Pos Control) Positive Internal QC (test code=Internal QC) Acceptable Drugs of Abuse Urine [id number] 18:58:11 Test Item Value Reference Range Comments [...] (test Negative Negative code=Cannabinoid Screen Ur) Alcohol [id number] 18:47:34 Test Item Value Reference Range Comments Ethanol Level (test <0.00 g/dL 0.00-0.01 Intoxicated 0.080 g/dL or more code=Ethanol Level) Ethanol Inst (test <0 code=Ethanol Inst) Comprehensive Metabolic [id number] 18:47:33 Test Item Value Reference Range Comments [...] (test code=A/G Ratio) 1.0 ratio Comprehensive Metabolic [id number] 18:47:33 Test Item Value Reference Range Comments [...] is not provided, and the patient is -Italian, multiply by 1.212. If sex is not [...] the National Kidney Foundation, http://nkdep.nih.gov Comprehensive Metabolic [id number] 18:47:33 Test Item Value Reference Range Comments [...] is not provided, and the patient is -Italian, multiply by 1.212. If sex is not [...] is not provided, and the patient is -Italian, multiply by 1.212. If sex is not [...] Kidney Foundation, http://nkdep.nih.gov Complete Blood Count with [id number] 18:15:23 Test Item Value Reference Range Comments [...] x10 IPF (test code=IPF) 0 % Automated [id number] 18:15:23 Test Item Value Reference Range Comments Neutro Auto (test code=Neutro Auto) 42.1 % 36.0-70.0 Lymph Auto (test code=Lymph Auto) 40.0 % 12.0-44.0 Douglas Auto (test code=Douglas Auto) 12.2 % 0.0-11.0 Eos, Auto (test code=Eos, Auto) 4.9 % 0.0-7.0 Basophil Auto (test code=Basophil Auto) 0.6 % 0.0-2.0 Neutro Absolute (test code=Neutro Absolute) 2.2 x10 1.6-7.4 Lymph Absolute (test code=Lymph Absolute) 2.06 x10 .50-4.60 Douglas Absolute (test code=Douglas Absolute) .63 x10 .00-1.20 Eos Absolute (test code=Eos Absolute) 0.25 x10 0.00-0.74 Baso Absolute (test code=Baso Absolute) 0.03 x10 0.00-0.21 IG [id number] 18:15:23 Test Item Value Reference Range Comments IG (test code=IG) 0.2 % 0.0-5.0 IG Abs (test code=IG Abs) 0 x10
--- NOTE | 2019-06-30 23:12 | RAD REPORT ---
EXAM DESCRIPTION: RAD - Humerus Left - 06/30/2019 10:59 pm CLINICAL HISTORY: PAIN COMPARISON: Humerus Left dated 09/23/2018 FINDINGS: No acute fracture or dislocation seen. Calcific tendinitis is present.
--- NOTE | 2019-06-30 23:26 | ER ---
Nurse's Notes [facility] Name: Sidra Hodges Age: 44 yrs Sex: Female : 1975 Arrival Date: 06/30/2019 Time: 22:29 Bed 7 Private MD: Diagnosis: Calcific tendinitis of left shoulder;Unspecified open wound, right knee Presentation: 06/30 22:39 Presenting complaint: EMS states: Pt reports left shoulder pain and right knee pain. ea EMS reported she was seen at [facility] today for the shoulder pain. Transition of care: patient was not received from another setting of care. Onset of symptoms was June 30, 2019. Risk Assessment: Do you want to hurt yourself or someone else? Patient reports no desire to harm self or others. Initial Sepsis Screen: Does the patient meet any 2 criteria? HR > 90 bpm. No. Patient's initial sepsis screen is negative. Does the patient have a suspected source of infection? No. Patient's initial sepsis screen is negative. Care prior to arrival: None. 22:39 Method Of Arrival: EMS: [facility] 22:39 Acuity: CARMITA 4 ea Triage Assessment: 22:44 General: Appears uncomfortable, Behavior is crying. Pain: Complains of pain in anterior ea aspect of left shoulder, left bicep and right knee. Historical: - Allergies: 22:43 NKA; ea - Home Meds: 22:43 Risperdal Oral [Active]; oxcarbazepine Oral [Active]; Hydroxyzine Oral [Active]; ea divalproex Oral [Active]; - PMHx: 22:43 ADD/ADHD; Seizures; hemorrhoids; Bipolar disorder; Anxiety; ea - PSHx: 22:43 None; ea - Immunization history:: Adult Immunizations unknown. - Social history:: Smoking status: Patient/guardian denies using tobacco. - Ebola Screening: : No symptoms or risks identified at this time. - Family history:: not pertinent. - Hospitalizations: : No recent hospitalization is reported. Screenin:42 Abuse screen: Denies threats or abuse. Nutritional screening: No deficits noted. ea Tuberculosis screening: No symptoms or risk factors identified. Fall Risk None identified. Assessment: 22:45 General: Appears uncomfortable, Behavior is crying. Pain: Complains of pain in right ea knee and left bicep and anterior aspect of left shoulder. Neuro: Level of Consciousness is awake, alert, obeys commands, Oriented to person, place, time, situation. Cardiovascular: Patient's skin is warm and dry. Respiratory: Airway is patent Respiratory effort is even, unlabored, Respiratory pattern is regular, symmetrical. Derm: Skin is pink, warm \T\ dry. Injury Description: Laceration sustained to right knee is 7.6 to 20 cm long, was sustained 1 week no active bleeding noted at this time. 23:06 Reassessment: Patient and/or family updated on plan of care and expected duration. Pain ea level reassessed. Patient is alert, oriented x 3, equal unlabored respirations, skin warm/dry/pink. 07/01 00:19 Reassessment: Patient and/or family updated on plan of care and expected duration. Pain ea level reassessed. Patient is alert, oriented x 3, equal unlabored respirations, skin warm/dry/pink. Discharge instruction given to patient, verbalized the understanding of instruction pt left ED ambulatory pt tolerating well. Vital Signs: 06/30 22:40 BP 149 / 117; Pulse 113; Resp 18; Temp 98; Pulse Ox 100% ; Pain 8/10; ea 23:05 BP 132 / 76; Pulse 93; Resp 18; Pulse Ox 100% ; ea ED Course: 22:29 Patient arrived in ED. fc 22:31 Yong Banks MD is Attending Physician. rn 22:37 Kesha May RN is Primary Nurse. ea 22:42 Triage completed. ea 22:42 Patient has correct armband on for positive identification. Placed in gown. Bed in low ea position. Call light in reach. Side rails up X2. 22:43 Arm band placed on right wrist. Patient placed in an exam room, on a stretcher, on ea pulse oximetry. 22:56 XRAY Humerus LEFT In Process Unspecified. EDMS 23:25 Hi Perez MD is Referral Physician. rn 07/01 00:20 No provider procedures requiring assistance completed. Patient did not have IV access ea during this emergency room visit. Administered Medications: No medications were administered Outcome: 06/30 23:25 Discharge ordered by . rn 07/01 00:20 Discharged to home ambulatory. ea Condition: stable Discharge instructions given to patient, Instructed on discharge instructions, follow up and referral plans. Demonstrated understanding of instructions, follow-up care. 00:20 Patient left the ED. ea Signatures: Dispatcher [employer] Ana Laura Sal, RN Yong Fitzgerald MD MD rn Antunez, Elena, RN RN ea
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
[2019-07-01 00:41] VITALS: TEMP 98; O2SAT 100
[2019-07-01 00:42] VITALS: BP 132/76
== END 2019-07-01 00:20 | disposition home or self-care (01) ==
LOC: ER 22:24
DX: M75.32 Calcific tendinitis of left shoulder (principal); S81.001D Unspecified open wound, right knee, subsequent encounter; V89.2XXD Person injured in unspecified motor-vehicle accident, traffic, subsequent encounter; F31.9 Bipolar disorder, unspecified; G40.909 Epilepsy, unspecified, not intractable, without status epilepticus; F90.9 Attention-deficit hyperactivity disorder, unspecified type
CPT/HCPCS: 99283

== ENCOUNTER 2019-07-01 21:01 | Emergency (ER) | payer SELFPAY ==
--- OUTSIDE RECORDS SUMMARY | 2019-07-01 21:03 | XMS REPORT ---
:1975 [facility] Address [address] [place] [address] Care Team Providers Name Role Phone Unavailable [...] code=Valproic Acid Level) 57.6 ug/mL(g) 50.0-100.0 Hemoglobin [id number] 09:36:00 Test Item Value Reference Range Comments Hemoglobin A1c (test 5.0 % 4.8-5.9 Non Diabetic 4.8-5.9%Diabetic code=Hemoglobin A1c) <7.0% CT Shoulder w/o Contrast [id number] 16:49:13Patient: BHUMIKA JONES Date/Time01/09/2019 16:14 CDTReason for [...] FSigned (Electronic Signature): 01/09/2019 4: 49 pmRPR [id number] 21:33:20 Test Item Value Reference Range Comments RPR Qual (test code=RPR Qual) Non-Reactive Non-Reactive Reactive Control (test code=Reactive Control) Reactive Weak Reactive Control (test code=Weak Reactive Weak Reactive Control) Non-Reactive Control (test code=Non-Reactive Non-Reactive Control) Lot # (test code=Lot #) [id number] Expiration Dt (test code=Expiration Dt) 04-23-2020 XR Shoulder Complete 2+ Views [id number] 15:41:25Patient: BHUMIKA JONES Date/Time2018 15:25 CDTReason for [...] ( Electronic Signature): 01/07/2019 3:41 pmThyroid Stimulating [id number] 03:07:04 Test Item Value Reference Range Comments TSH (test code=TSH) 9.650 mIU/mL 0.270-4.200 Lipid [id number] 03:07:03 Test Item Value Reference Range Comments Cholesterol Total (test 199 mg/dL 0-200 RISK OF HEART DISEASEPublished code=Cholesterol Total) by [place] [employer] Analyte Optimal Borderline Increased RiskCHOL [...] is LDL/HDL Ratio=LDL Calc/HDL Chol HCG Qualitative [id number] 02:33:13 Test Item Value Reference Range Comments HCG, Serum Qual (test code=HCG, Serum Qual) Negative Lot # (test code=Lot #) [id number] Expiration Dt (test code=Expiration Dt) 2020-04-23 Neg Control (test code=Neg Control) Negative Pos Control (test code=Pos Control) Positive Internal QC (test code=Internal QC) Acceptable Drugs of Abuse Urine [id number] 18:58:11 Test Item Value Reference Range Comments [...] (test Negative Negative code=Cannabinoid Screen Ur) Alcohol [id number] 18:47:34 Test Item Value Reference Range Comments Ethanol Level (test <0.00 g/dL 0.00-0.01 Intoxicated 0.080 g/dL or more code=Ethanol Level) Ethanol Inst (test <0 code=Ethanol Inst) Comprehensive Metabolic [id number] 18:47:33 Test Item Value Reference Range Comments [...] (test code=A/G Ratio) 1.0 ratio Comprehensive Metabolic [id number] 18:47:33 Test Item Value Reference Range Comments [...] is not provided, and the patient is -[place]ic, multiply by 1.212. If sex is not [...] the National Kidney Foundation, http://nkdep.nih.gov Comprehensive Metabolic [id number] 18:47:33 Test Item Value Reference Range Comments [...] is not provided, and the patient is -[place]ic, multiply by 1.212. If sex is not [...] is not provided, and the patient is -[place]ic, multiply by 1.212. If sex is not [...] Kidney Foundation, http://nkdep.nih.gov Complete Blood Count with [id number] 18:15:23 Test Item Value Reference Range Comments [...] x10 IPF (test code=IPF) 0 % Automated [id number] 18:15:23 Test Item Value Reference Range Comments Neutro Auto (test code=Neutro Auto) 42.1 % 36.0-70.0 Lymph Auto (test code=Lymph Auto) 40.0 % 12.0-44.0 Clark Auto (test code=Clark Auto) 12.2 % 0.0-11.0 Eos, Auto (test code=Eos, Auto) 4.9 % 0.0-7.0 Basophil Auto (test code=Basophil Auto) 0.6 % 0.0-2.0 Neutro Absolute (test code=Neutro Absolute) 2.2 x10 1.6-7.4 Lymph Absolute (test code=Lymph Absolute) 2.06 x10 .50-4.60 Clark Absolute (test code=Clark Absolute) .63 x10 .00-1.20 Eos Absolute (test code=Eos Absolute) 0.25 x10 0.00-0.74 Baso Absolute (test code=Baso Absolute) 0.03 x10 0.00-0.21 IG [id number] 18:15:23 Test Item Value Reference Range Comments IG (test code=IG) 0.2 % 0.0-5.0 IG Abs (test code=IG Abs) 0 x10
[2019-07-01] MEDS ORDERED: TRAMADOL HCL 50 MG TAB ONE (22:26)
[2019-07-01] MEDS ORDERED: KETOROLAC 30 MG/ML INJ ONE (22:27)
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
--- NOTE | 2019-07-01 22:51 | ER ---
Nurse's Notes [facility] Name: Sidra Hodges Age: 44 yrs Sex: Female : 1975 Arrival Date: 07/01/2019 Time: 21:02 Bed 6 Private MD: Diagnosis: Calcific tendinitis of left shoulder Presentation: 07/01 21:50 Presenting complaint: Presenting complaint: Patient states: "My left arm hurts really aj1 bad, I can't even sleep" Patient was seen in this ER yesterday and the day before for the same complaint. 21:52 Transition of care: patient was not received from another setting of care. Onset of aj1 symptoms was 2019. Risk Assessment: Do you want to hurt yourself or someone else? Patient reports no desire to harm self or others. Initial Sepsis Screen: Does the patient meet any 2 criteria? No. Patient's initial sepsis screen is negative. Does the patient have a suspected source of infection? No. Patient's initial sepsis screen is negative. Care prior to arrival: None. 21:52 Method Of Arrival: EMS: [facility] aj 21:52 Acuity: CARMITA 4 aj1 Triage Assessment: 21:53 General: Appears in no apparent distress. comfortable, Behavior is calm, cooperative, aj1 appropriate for age. Pain: Complains of pain in left arm Pain currently is 10 out of 10 on a pain scale. Neuro: Level of Consciousness is awake, alert, obeys commands. Cardiovascular: Patient's skin is warm and dry. Respiratory: Airway is patent Respiratory effort is even, unlabored, Respiratory pattern is regular, symmetrical. 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 - Social history:: Smoking status: Patient/guardian denies using tobacco. - Ebola Screening: : Patient denies travel to an Ebola-affected area in the 21 days before illness onset. - Family history:: not pertinent. - Hospitalizations: : No recent hospitalization is reported. Screenin:45 Abuse screen: Denies threats or abuse. Nutritional screening: No deficits noted. vc Tuberculosis screening: No symptoms or risk factors identified. Fall Risk None identified. Assessment: 22:18 General: Appears uncomfortable, Behavior is appropriate for age. Pain: Complains of ea pain in right knee and left arm. Neuro: Level of Consciousness is awake, alert, obeys commands, Oriented to person, place, time. Respiratory: Airway is patent Respiratory effort is even, unlabored, Respiratory pattern is regular, symmetrical. Derm: Skin is pink, warm \\T\\ dry. 23:00 Reassessment: Patient sitting up on stretcher resting with eyes closed. vc 23:30 Reassessment: Patient given apple juice. No c/o pain at this time. vc Vital Signs: 21:53 BP 130 / 92; Pulse 92; Resp 18; Temp 98.1; Pulse Ox 97% on R/A; Pain 10/10; aj1 23:00 BP 132 / 90; Pulse 99; Resp 18; Pulse Ox 98% on R/A; vc ED Course: 21:02 Patient arrived in ED. cl3 21:53 Triage completed. aj1 21:53 Arm band placed on Patient placed in waiting room, Patient notified of wait time. aj1 21:53 Patient has correct armband on for positive identification. Call light in reach. Side vc rails up X 1. 22:10 Yong Banks MD is Attending Physician. rn 22:17 Kesha May RN is Primary Nurse. ea 23:44 No provider procedures requiring assistance completed. Patient did not have IV access ea during this emergency room visit. Administered Medications: 22:35 Drug: TORadol 30 mg Route: IM; Site: right deltoid; vc 23:45 Follow up: Response: No adverse reaction; Pain is decreased vc 22:35 Drug: UltRAM 50 mg Route: PO; vc 23:45 Follow up: Response: No adverse reaction; Pain is decreased vc Outcome: 22:50 Discharge ordered by . rn 23:45 Discharged to home ambulatory. ea 23:45 Condition: stable 23:45 Discharge instructions given to patient, Instructed on discharge instructions, follow up and referral plans. Demonstrated understanding of instructions, follow-up care, medications, Prescriptions given X 2. 23:47 Patient left the ED. ea Signatures: Nyla Luz RN RN aj1 Yong Banks MD MD rn Antunez, Elena, RN RN ea Lewis, Charde cl3 Dayanara Paz RN RN vc Corrections: (The following items were deleted from the chart) 21:53 21:50 Presenting complaint: aj1 aj1
[2019-07-01 23:59] VITALS: BP 130/92; TEMP 98.1; O2SAT 97
== END 2019-07-01 23:47 | disposition home or self-care (01) ==
LOC: ER 21:01
DX: M75.32 Calcific tendinitis of left shoulder (principal); F31.9 Bipolar disorder, unspecified; G40.909 Epilepsy, unspecified, not intractable, without status epilepticus; F90.9 Attention-deficit hyperactivity disorder, unspecified type
CPT/HCPCS: 96372; 99283

== ENCOUNTER 2019-07-03 04:55 | Emergency (ER) | payer SELFPAY ==
[2019-07-03] MEDS ORDERED: HYDROCODONE/APAP 5/325 MG TAB ONE (05:35)
--- NOTE | 2019-07-03 05:57 | ER ---
Nurse's Notes [facility] Name: Sidra Hodges Age: 44 yrs Sex: Female : 1975 Arrival Date: 07/03/2019 Time: 04:57 Bed 6 Private MD: Diagnosis: Left frozen shoulder Presentation: 07/03 05:00 Presenting complaint: EMS states: "The pt is reporting she is having left arm pain. she jd3 has a sling on and she didn't tell us how she hurt it.". Transition of care: patient was not received from another setting of care. Onset of symptoms was July 03, 2019. Risk Assessment: Do you want to hurt yourself or someone else? Patient reports no desire to harm self or others. Initial Sepsis Screen: Does the patient meet any 2 criteria? No. Patient's initial sepsis screen is negative. Does the patient have a suspected source of infection? No. Patient's initial sepsis screen is negative. Care prior to arrival: None. 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 - Social history:: Smoking status: Patient/guardian denies using tobacco. - Ebola Screening: : Patient negative for fever greater than or equal to 101.5 degrees Fahrenheit, and additional compatible Ebola Virus Disease symptoms. Screenin:05 Abuse screen: Denies threats or abuse. Nutritional screening: No deficits noted. jd3 Tuberculosis screening: No symptoms or risk factors identified. Fall Risk Ambulatory Aid- None/Bed Rest/Nurse Assist (0 pts). Gait- Normal/Bed Rest/Wheelchair (0 pts) Mental Status- Oriented to own ability (0 pts). Total Davidson Fall Scale indicates No Risk (0-24 pts). Assessment: 05:05 General: Appears in no apparent distress. uncomfortable, Behavior is calm, cooperative, jd3 appropriate for age. Pain: Complains of pain in left arm Quality of pain is described as aching. Neuro: Level of Consciousness is awake, alert, obeys commands, Oriented to person, place, time, situation. Cardiovascular: Denies chest pain, Capillary refill < 3 seconds Patient's skin is warm and dry. Respiratory: Airway is patent Respiratory effort is even, unlabored, Respiratory pattern is regular, symmetrical. GI: No signs and/or symptoms were reported involving the gastrointestinal system. : No signs and/or symptoms were reported regarding the genitourinary system. EENT: No signs and/or symptoms were reported regarding the EENT system. Derm: Skin is intact, Skin is dry, Skin is normal, Skin temperature is warm. Musculoskeletal: Circulation, motion, and sensation intact. Range of motion: limited in left shoulder. 06:11 Reassessment: Patient appears in no apparent distress at this time. Patient and/or jd3 family updated on plan of care and expected duration. Pain level reassessed. Patient is alert, oriented x 3, equal unlabored respirations, skin warm/dry/pink. reported understanding of discharge instructions. Patient states feeling better. Vital Signs: 05:03 BP 119 / 58; Pulse 100; Resp 19 S; Temp 99.0(O); Pulse Ox 97% on R/A; Weight 77.11 kg jd3 (R); Height 4 ft. 10 in. (147.32 cm) (R); Pain 10/10; 06:12 BP 117 / 72; Pulse 97; Resp 17 S; Pulse Ox 98% on R/A; jd3 05:03 Body Mass Index 35.53 (77.11 kg, 147.32 cm) jd3 ED Course: 04:57 Patient arrived in ED. cl3 04:58 Jeffrey Herr MD is Attending Physician. pkl 05:00 Dariusz Nunez RN is Primary Nurse. jd3 05:02 Triage completed. jd3 05:04 Arm band placed on. jd3 05:06 Patient has correct armband on for positive identification. Bed in low position. Call j light in reach. Side rails up X 1. 05:07 Jeffrey Herr MD is Attending Physician. pkl 05:27 Jeffrey Herr MD is Attending Physician. pkl 05:53 Shoulder Left (2 View) XRAY In Process Unspecified. EDMS 05:56 Blanco Weinberg MD is Referral Physician. pkl 06:11 No provider procedures requiring assistance completed. Patient did not have IV access jd3 during this emergency room visit. Administered Medications: 05:36 Drug: [place] 5 mg-325 mg 1 tabs Route: PO; jd3 06:12 Follow up: Response: No adverse reaction; RASS: Alert and Calm (0) jd3 Outcome: 05:57 Discharge ordered by . pkl 06:11 Discharged to home ambulatory, with family. jd3 06:11 Condition: stable 06:11 Discharge instructions given to patient, Instructed on discharge instructions, follow up and referral plans. medication usage, Demonstrated understanding of instructions, follow-up care, medications, Prescriptions given X 1. 06:13 Patient left the ED. jd3 Signatures: Dispatcher [employer] EDMS Jeffrey Herr MD MD pkl Dariusz Nunez RN RN jd3 Mustapha Bach cl3 Corrections: (The following items were deleted from the chart) 06:12 06:12 Response: No adverse reaction jd3 jd3
--- NOTE | 2019-07-03 05:57 | EDPHYS ---
Physician Documentation [facility] Name: Sidra Hodges Age: 44 yrs Sex: Female : 1975 Arrival Date: 07/03/2019 Time: 04:57 Bed 6 Private MD: ED Physician Jeffrey Herr HPI: 07/03 05:28 This 44 yrs old Female presents to ER via EMS with complaints of Arm Pain. pkl 05:28 The patient or guardian complains of pain. The complaints affect the left shoulder. pkl Context: resulted from unknown cause. Onset: The symptoms/episode began/occurred 3 day(s) ago. 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 - Social history:: Smoking status: Patient/guardian denies using tobacco. - Ebola Screening: : Patient negative for fever greater than or equal to 101.5 degrees Fahrenheit, and additional compatible Ebola Virus Disease symptoms. ROS: 05:28 Eyes: Negative for injury, pain, redness, and discharge, ENT: Negative for injury, pkl pain, and discharge, Neck: Negative for injury, pain, and swelling, Cardiovascular: Negative for chest pain, palpitations, and edema, Respiratory: Negative for shortness of breath, cough, wheezing, and pleuritic chest pain, Abdomen/GI: Negative for abdominal pain, nausea, vomiting, diarrhea, and constipation, Back: Negative for injury and pain, : Negative for injury, bleeding, discharge, and swelling, Skin: Negative for injury, rash, and discoloration, Neuro: Negative for headache, weakness, numbness, tingling, and seizure. 05:28 MS/extremity: Positive for pain, of the left shoulder. Exam: 05:31 Head/Face: Normocephalic, atraumatic. Eyes: Pupils equal round and reactive to light, pkl extra-ocular motions intact. Lids and lashes normal. Conjunctiva and sclera are non-icteric and not injected. Cornea within normal limits. Periorbital areas with no swelling, redness, or edema. ENT: Nares patent. No nasal discharge, no septal abnormalities noted. Tympanic membranes are normal and external auditory canals are clear. Oropharynx with no redness, swelling, or masses, exudates, or evidence of obstruction, uvula midline. Mucous membranes moist. Neck: Trachea midline, no thyromegaly or masses palpated, and no cervical lymphadenopathy. Supple, full range of motion without nuchal rigidity, or vertebral point tenderness. No Meningismus. Chest/axilla: Normal chest wall appearance and motion. Nontender with no deformity. No lesions are appreciated. Cardiovascular: Regular rate and rhythm with a normal S1 and S2. No gallops, murmurs, or rubs. Normal PMI, no JVD. No pulse deficits. Respiratory: Lungs have equal breath sounds bilaterally, clear to auscultation and percussion. No rales, rhonchi or wheezes noted. No increased work of breathing, no retractions or nasal flaring. Abdomen/GI: Soft, non-tender, with normal bowel sounds. No distension or tympany. No guarding or rebound. No evidence of tenderness throughout. Back: No spinal tenderness. No costovertebral tenderness. Full range of motion. Skin: Warm, dry with normal turgor. Normal color with no rashes, no lesions, and no evidence of cellulitis. Neuro: Awake and alert, GCS 15, oriented to person, place, time, and situation. Cranial nerves II-XII grossly intact. Motor strength 5/5 in all extremities. Sensory grossly intact. Cerebellar exam normal. Normal gait. 05:31 Musculoskeletal/extremity: Extremities: grossly normal except: noted in the left shoulder: pain, tenderness, decreased ROM. Vital Signs: 05:03 BP 119 / 58; Pulse 100; Resp 19 S; Temp 99.0(O); Pulse Ox 97% on R/A; Weight 77.11 kg jd3 (R); Height 4 ft. 10 in. (147.32 cm) (R); Pain 10/10; 06:12 BP 117 / 72; Pulse 97; Resp 17 S; Pulse Ox 98% on R/A; jd3 05:03 Body Mass Index 35.53 (77.11 kg, 147.32 cm) jd3 MDM: 04:58 Patient medically screened. pkl 05:27 Patient medically screened. pkl 05:55 Data reviewed: vital signs, nurses notes, radiologic studies, plain films. pkl 07/03 05:28 Order name: Shoulder Left (2 View) XRAY pkl Administered Medications: 05:36 Drug: [place] 5 mg-325 mg 1 tabs Route: PO; jd3 06:12 Follow up: Response: No adverse reaction; RASS: Alert and Calm (0) jd3 Disposition: 07/03/19 05:57 Discharged to Home. Impression: Left frozen shoulder. - Condition is Stable. - Prescriptions for Diclofenac Sodium 75 mg Oral Tablet, Delayed Release (E.C.) - take 1 tablet by ORAL route 2 times per day; 20 tablet. - Medication Reconciliation Form, Thank You Letter, Antibiotic Education, Prescription Opioid Use form. - Follow up: Blanco Weinberg MD; When: 2 - 3 days; Reason: Re-evaluation by your physician. - Problem is new. - Symptoms are unchanged. Signatures: Dispatcher [employer] EDJeffrey Langley MD MD pkDariusz Bocanegra RN RN jd3 Corrections: (The following items were deleted from the chart) 06:13 05:57 07/03/2019 05:57 Discharged to Home. Impression: Left frozen shoulder. Condition jd3 is Stable. Forms are Medication Reconciliation Form, Thank You Letter, Antibiotic Education, Prescription Opioid Use. Follow up: Blanco Weinberg; When: 2 - 3 days; Reason: Re-evaluation by your physician. Problem is new. Symptoms are unchanged. pkl
[2019-07-03 06:25] VITALS: TEMP 99
[2019-07-03 06:26] VITALS: BP 117/72; O2SAT 98
--- NOTE | 2019-07-03 09:48 | RAD REPORT ---
EXAM DESCRIPTION: RAD - Shoulder Left 2 View - 07/03/2019 5:53 am CLINICAL HISTORY: Left shoulder pain COMPARISON: December 2018 TECHNIQUE: Internal and external rotation views of the left shoulder were obtained. FINDINGS: There is no fracture or dislocation. AC joint is normal in appearance. Calcifications are present in the acromial humeral joint space similar to comparison. This is probably a chronic calcifi c tendinitis presentation. This is a common source for pain. No periarticular soft tissue abnormality seen. IMPRESSION: Negative two-view left shoulder examination for acute finding Calcific tendinitis changes are evident similar to the comparison study.
== END 2019-07-03 06:13 | disposition home or self-care (01) ==
LOC: ER 04:55
DX: M75.02 Adhesive capsulitis of left shoulder (principal); F41.9 Anxiety disorder, unspecified; F31.9 Bipolar disorder, unspecified
CPT/HCPCS: 99284

== ENCOUNTER 2019-07-12 19:55 | Emergency (ER) | payer SELFPAY ==
--- OUTSIDE RECORDS SUMMARY | 2019-07-12 19:57 | XMS REPORT ---
:1975 [facility] [address] [place] [address] Care Team Providers Name Role Phone Unavailable [...] code=Valproic Acid Level) 57.6 ug/mL(g) 50.0-100.0 Hemoglobin [id number] 09:36:00 Test Item Value Reference Range Comments Hemoglobin A1c (test 5.0 % 4.8-5.9 Non Diabetic 4.8-5.9%Diabetic code=Hemoglobin A1c) <7.0% CT Shoulder w/o Contrast [id number] 16:49:13Patient: BHUMIKA JONES Date/Time01/09/2019 16:14 CDTReason for [...] FSigned (Electronic Signature): 01/09/2019 4: 49 pmRPR [id number] 21:33:20 Test Item Value Reference Range Comments RPR Qual (test code=RPR Qual) Non-Reactive Non-Reactive Reactive Control (test code=Reactive Control) Reactive Weak Reactive Control (test code=Weak Reactive Weak Reactive Control) Non-Reactive Control (test code=Non-Reactive Non-Reactive Control) Lot # (test code=Lot #) [id number] Expiration Dt (test code=Expiration Dt) 04-23-2020 XR Shoulder Complete 2+ Views [id number] 15:41:25Patient: BHUMIKA JONES Date/Time2018 15:25 CDTReason for [...] ( Electronic Signature): 01/07/2019 3:41 pmThyroid Stimulating [id number] 03:07:04 Test Item Value Reference Range Comments TSH (test code=TSH) 9.650 mIU/mL 0.270-4.200 Lipid [id number] 03:07:03 Test Item Value Reference Range Comments Cholesterol Total (test 199 mg/dL 0-200 RISK OF HEART DISEASEPublished code=Cholesterol Total) by [place] [employer] Analyte Optimal Borderline Increased RiskCHOL [...] is LDL/HDL Ratio=LDL Calc/HDL Chol HCG Qualitative [id number] 02:33:13 Test Item Value Reference Range Comments HCG, Serum Qual (test code=HCG, Serum Qual) Negative Lot # (test code=Lot #) [id number] Expiration Dt (test code=Expiration Dt) 2020-04-23 Neg Control (test code=Neg Control) Negative Pos Control (test code=Pos Control) Positive Internal QC (test code=Internal QC) Acceptable Drugs of Abuse Urine [id number] 18:58:11 Test Item Value Reference Range Comments [...] (test Negative Negative code=Cannabinoid Screen Ur) Alcohol [id number] 18:47:34 Test Item Value Reference Range Comments Ethanol Level (test <0.00 g/dL 0.00-0.01 Intoxicated 0.080 g/dL or more code=Ethanol Level) Ethanol Inst (test <0 code=Ethanol Inst) Comprehensive Metabolic [id number] 18:47:33 Test Item Value Reference Range Comments [...] (test code=A/G Ratio) 1.0 ratio Comprehensive Metabolic [id number] 18:47:33 Test Item Value Reference Range Comments [...] is not provided, and the patient is -Filipino, multiply by 1.212. If sex is not [...] the National Kidney Foundation, http://nkdep.nih.gov Comprehensive Metabolic [id number] 18:47:33 Test Item Value Reference Range Comments [...] is not provided, and the patient is -Filipino, multiply by 1.212. If sex is not [...] is not provided, and the patient is -Filipino, multiply by 1.212. If sex is not [...] Kidney Foundation, http://nkdep.nih.gov Complete Blood Count with [id number] 18:15:23 Test Item Value Reference Range Comments [...] x10 IPF (test code=IPF) 0 % Automated [id number] 18:15:23 Test Item Value Reference Range Comments Neutro Auto (test code=Neutro Auto) 42.1 % 36.0-70.0 Lymph Auto (test code=Lymph Auto) 40.0 % 12.0-44.0 Lucas Auto (test code=Lucas Auto) 12.2 % 0.0-11.0 Eos, Auto (test code=Eos, Auto) 4.9 % 0.0-7.0 Basophil Auto (test code=Basophil Auto) 0.6 % 0.0-2.0 Neutro Absolute (test code=Neutro Absolute) 2.2 x10 1.6-7.4 Lymph Absolute (test code=Lymph Absolute) 2.06 x10 .50-4.60 Lucas Absolute (test code=Lucas Absolute) .63 x10 .00-1.20 Eos Absolute (test code=Eos Absolute) 0.25 x10 0.00-0.74 Baso Absolute (test code=Baso Absolute) 0.03 x10 0.00-0.21 IG [id number] 18:15:23 Test Item Value Reference Range Comments IG (test code=IG) 0.2 % 0.0-5.0 IG Abs (test code=IG Abs) 0 x10
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
--- NOTE | 2019-07-12 23:32 | EDPHYS ---
Physician Documentation [facility] Name: Sidra oHdges Age: 44 yrs Sex: Female : 1975 Arrival Date: 07/12/2019 Time: 20:05 Bed 8 Private MD: ED Physician Pascual Lundy HPI: 07/12 21:46 This 44 yrs old Female presents to ER via EMS with complaints of neck pain, jmm shoulder pain. 21:46 The patient or guardian complains of an injury, pain, that is chronic. Onset: The jmm symptoms/episode began/occurred acutely, 1 month(s) ago. Associated signs and symptoms: Pertinent negatives: fever, headache, numbness, vomiting. The pain does not radiate. The patient has experienced similar episodes in the past. Historical: - Allergies: 20:08 NKA; rv - PMHx: 20:08 ADD/ADHD; Anxiety; Bipolar disorder; hemorrhoids; Seizures; rv - PSHx: 20:08 Unable to obtain; rv - Immunization history:: Adult Immunizations up to date. - Social history:: Smoking status: Patient denies any tobacco usage or history of. - Ebola Screening: : No symptoms or risks identified at this time. ROS: 21:46 Constitutional: Negative for fever, chills, and weight loss, Cardiovascular: Negative jmm for chest pain, palpitations, and edema, Respiratory: Negative for shortness of breath, cough, wheezing, and pleuritic chest pain. 21:46 Neck: Positive for pain with movement. 21:46 All other systems are negative. Exam: 21:46 Constitutional: This is a well developed, well nourished patient who is awake, alert, jmm and in no acute distress. Head/Face: atraumatic. Eyes: EOMI, no conjunctival erythema appreciated ENT: Moist Mucus Membranes 21:46 Chest/axilla: Normal chest wall appearance and motion. Cardiovascular: Regular rate and rhythm. No edema appreciated Respiratory: Normal respirations, no respiratory distress appreciated Abdomen/GI: Non distended, soft 21:46 Neck: C-spine: vertebral tenderness, that is mild, appreciated at C2, C3, C4, C5 and C6. 21:46 Back: bilateral trapezius pain on palpation. 21:46 Musculoskeletal/extremity: ROM: intact in all extremities. 21:46 Skin: Appearance: Color: normal in color. 21:46 Neuro: Orientation: is normal, Mentation: is normal, Memory: is normal. 21:46 Psych: Behavior/mood is pleasant, cooperative. Vital Signs: 20:07 BP 125 / 75; Pulse 74; Resp 18; Temp 98.2; Pulse Ox 99% ; Weight 81.65 kg; rv 20:30 BP 126 / 81; Pulse 72; Resp 17; Pulse Ox 100% on R/A; rv 21:00 BP 140 / 77; Pulse 72; Resp 17; Pulse Ox 100% on R/A; rv 21:30 BP 113 / 62; Pulse 77; Resp 16; Pulse Ox 100% on R/A; rv 22:00 BP 127 / 83; Pulse 69; Resp 16; Pulse Ox 100% on R/A; rv 22:30 BP 126 / 83; Pulse 66; Resp 16; Pulse Ox 100% on R/A; rv MDM: 20:39 Patient medically screened. ry 23:30 Data reviewed: vital signs, nurses notes. Counseling: I had a detailed discussion with mario the patient and/or guardian regarding: the historical points, exam findings, and any diagnostic results supporting the discharge/admit diagnosis, radiology results, the need for outpatient follow up, to return to the emergency department if symptoms worsen or persist or if there are any questions or concerns that arise at home. ED course: Patient is alert and non toxic in appearance in the ED. Advised to follow up with pcp and otherwise given strict return precautions. patient understood and agrees with the plan of care. . 07/12 20:56 Order name: CT C Spine mario 07/12 20:56 Order name: Misc. Order: restroom assist; Complete Time: 21:08 mario Administered Medications: No medications were administered Disposition: 07/13 08:04 Co-signature as Attending Physician, Pascual Lundy MD I agree with the assessment and [facility] plan of care. Disposition: 07/12/19 23:31 Discharged to Home. Impression: Strain of muscle and tendon of back wall of thorax. - Condition is Stable. - Discharge Instructions: Thoracic Strain. - Prescriptions for Zanaflex 4 mg Oral Tablet - take 1 tablet by ORAL route every 8 hours As needed; 20 tablet. - Medication Reconciliation Form, Thank You Letter, Antibiotic Education, Prescription Opioid Use form. - Follow up: Private Physician; When: 2 - 3 days; Reason: Recheck today's complaints, Continuance of care, Re-evaluation by your physician. Signatures: Dispatcher [employer] Pascual Gamble MD MD cha Mickail, Joel, PA PA jmm Bryson, James, RN RN jb4 Juan Antonio Madison RN RN rv Corrections: (The following items were deleted from the chart) 00:03 07/12 23:31 07/12/2019 23:31 Discharged to Home. Impression: Strain of muscle and jb4 tendon of back wall of thorax. Condition is Stable. Forms are Medication Reconciliation Form, Thank You Letter, Antibiotic Education, Prescription Opioid Use. Follow up: Private Physician; When: 2 - 3 days; Reason: Recheck today's complaints, Continuance of care, Re-evaluation by your physician. mario
[2019-07-13 01:16] VITALS: TEMP 98.2
[2019-07-13 01:17] VITALS: O2SAT 100
[2019-07-13 01:27] VITALS: BP 126/83
--- NOTE | 2019-07-13 13:05 | RAD REPORT ---
EXAM DESCRIPTION: C Spine Wo Con CLINICAL HISTORY: 44 years Female, neck pain COMPARISON: CT cervical spine April 10, 2018. TECHNIQUE: Multiple helical axial tomographic images were obtained of the cervical spine without int ravenous contrast. Coronal and sagittal reformatted images were obtained. This exam was performed acc ording to our departmental dose-optimization program, which includes automated exposure control, adju stment of the mA and/or kV according to patient size and/or use of iterative reconstruction technique . FINDINGS: No evidence of an acute fracture of the cervical spine. No subluxation. A 6 mm lucency in the posterior vertebral body of C2 is again demonstrated and may represent a hemangioma. Central kiley l appears grossly patent. There is trace nonspecific mucosal thickening and fluid in the right maxillary sinus. Surrounding soft tissues are unremarkable. IMPRESSION: No evidence for an acute fracture of the cervical spine. Electronically signed by: Terry Burt MD 07/12/2019 11:23 PM FIRE CHIEF Due to temporary technical issues with the PACS/Fluency reporting system, reports are being signed by the in house radiologist as a courtesy to ensure prompt reporting. The interpreting radiologist is f ully responsible for the content of the report.
== END 2019-07-13 00:03 | disposition home or self-care (01) ==
LOC: ER 19:55
DX: S29.012A Strain of muscle and tendon of back wall of thorax, initial encounter (principal); V89.2XXA Person injured in unspecified motor-vehicle accident, traffic, initial encounter
CPT/HCPCS: 72125; 99284

== ENCOUNTER 2019-08-07 14:26 | Emergency (ER) | payer SELFPAY ==
--- OUTSIDE RECORDS SUMMARY | 2019-08-07 14:29 | XMS REPORT ---
:1975 [facility] Address [address] [place] [address] Care Team Providers Name Role Phone Unavailable [...] code=Valproic Acid Level) 57.6 ug/mL(g) 50.0-100.0 Hemoglobin [id number] 09:36:00 Test Item Value Reference Range Comments Hemoglobin A1c (test 5.0 % 4.8-5.9 Non Diabetic 4.8-5.9%Diabetic code=Hemoglobin A1c) <7.0% CT Shoulder w/o Contrast [id number] 16:49:13Patient: BHUMIKA JONES Date/Time01/09/2019 16:14 CDTReason for [...] FSigned (Electronic Signature): 01/09/2019 4: 49 pmRPR [id number] 21:33:20 Test Item Value Reference Range Comments RPR Qual (test code=RPR Qual) Non-Reactive Non-Reactive Reactive Control (test code=Reactive Control) Reactive Weak Reactive Control (test code=Weak Reactive Weak Reactive Control) Non-Reactive Control (test code=Non-Reactive Non-Reactive Control) Lot # (test code=Lot #) [id number] Expiration Dt (test code=Expiration Dt) 04-23-2020 XR Shoulder Complete 2+ Views [id number] 15:41:25Patient: BHUMIKA JONES Date/Time2018 15:25 CDTReason for [...] ( Electronic Signature): 01/07/2019 3:41 pmThyroid Stimulating [id number] 03:07:04 Test Item Value Reference Range Comments TSH (test code=TSH) 9.650 mIU/mL 0.270-4.200 Lipid [id number] 03:07:03 Test Item Value Reference Range Comments Cholesterol Total (test 199 mg/dL 0-200 RISK OF HEART DISEASEPublished code=Cholesterol Total) by [place] [employer] Analyte Optimal Borderline Increased [...] is LDL/HDL Ratio=LDL Calc/HDL Chol HCG Qualitative [id number] 02:33:13 Test Item Value Reference Range Comments HCG, Serum Qual (test code=HCG, Serum Qual) Negative Lot # (test code=Lot #) [id number] Expiration Dt (test code=Expiration Dt) 2020-04-23 Neg Control (test code=Neg Control) Negative Pos Control (test code=Pos Control) Positive Internal QC (test code=Internal QC) Acceptable Drugs of Abuse Urine [id number] 18:58:11 Test Item Value Reference Range Comments [...] (test Negative Negative code=Cannabinoid Screen Ur) Alcohol [id number] 18:47:34 Test Item Value Reference Range Comments Ethanol Level (test <0.00 g/dL 0.00-0.01 Intoxicated 0.080 g/dL or more code=Ethanol Level) Ethanol Inst (test <0 code=Ethanol Inst) Comprehensive Metabolic [id number] 18:47:33 Test Item Value Reference Range Comments [...] (test code=A/G Ratio) 1.0 ratio Comprehensive Metabolic [id number] 18:47:33 Test Item Value Reference Range Comments [...] is not provided, and the patient is -[place], multiply by 1.212. If sex is [...] the National Kidney Foundation, http://nkdep.nih.gov Comprehensive Metabolic [id number] 18:47:33 Test Item Value Reference Range Comments [...] is not provided, and the patient is -[place], multiply by 1.212. If sex is [...] is not provided, and the patient is -[place], multiply by 1.212. If sex is [...] Kidney Foundation, http://nkdep.nih.gov Complete Blood Count with [id number] 18:15:23 Test Item Value Reference Range Comments [...] x10 IPF (test code=IPF) 0 % Automated [id number] 18:15:23 Test Item Value Reference Range Comments Neutro Auto (test code=Neutro Auto) 42.1 % 36.0-70.0 Lymph Auto (test code=Lymph Auto) 40.0 % 12.0-44.0 [place] Auto (test code=[place] Auto) 12.2 % 0.0-11.0 Eos, Auto (test code=Eos, Auto) 4.9 % 0.0-7.0 Basophil Auto (test code=Basophil Auto) 0.6 % 0.0-2.0 Neutro Absolute (test code=Neutro Absolute) 2.2 x10 1.6-7.4 Lymph Absolute (test code=Lymph Absolute) 2.06 x10 .50-4.60 [place] Absolute (test code=[place] Absolute) .63 x10 .00-1.20 Eos Absolute (test code=Eos Absolute) 0.25 x10 0.00-0.74 Baso Absolute (test code=Baso Absolute) 0.03 x10 0.00-0.21 IG [id number] 18:15:23 Test Item Value Reference Range Comments IG (test code=IG) 0.2 % 0.0-5.0 IG Abs (test code=IG Abs) 0 x10
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
--- NOTE | 2019-08-07 14:45 | ER ---
Nurse's Notes [facility] Name: Sidra Hodges Age: 44 yrs Sex: Female : 1975 Arrival Date: 08/07/2019 Time: 14:28 Bed 19 Private MD: Diagnosis: Strain of muscle, fascia and tendon at neck level Presentation: 08/07 14:29 Presenting complaint: EMS states: right sided neck pain unknown time frame. Transition sv of care: patient was not received from another setting of care. Onset of symptoms is unknown. Risk Assessment: Do you want to hurt yourself or someone else? Patient reports no desire to harm self or others. Initial Sepsis Screen: Does the patient meet any 2 criteria? No. Patient's initial sepsis screen is negative. Does the patient have a suspected source of infection? No. Patient's initial sepsis screen is negative. Care prior to arrival: None. 14:29 Method Of Arrival: EMS: [facility] sv 14:29 Acuity: CARMITA 4 sv Triage Assessment: 14:42 General: Appears in no apparent distress. uncomfortable, well developed, Behavior is sv calm, cooperative, appropriate for age. Pain: Complains of pain in back of neck. Neuro: Level of Consciousness is awake, alert, obeys commands, Oriented to person, place, time, situation, Moves all extremities. Full function Gait is steady. Respiratory: Airway is patent Respiratory effort is even, unlabored, Respiratory pattern is regular, symmetrical. Derm: Skin is pink, warm \T\ dry. Musculoskeletal: Range of motion: intact in all extremities. Historical: - Allergies: 14:41 NKA; sv - PMHx: 14:41 ADD/ADHD; Anxiety; Bipolar disorder; Chronic pain; hemorrhoids; psychiatric; Seizures; sv - PSHx: 14:41 None; sv - Immunization history:: Adult Immunizations up to date. - Coronavirus screen:: The patient has NOT traveled to [place] in the past 14 days. Proceed with normal triage process as indicated. The patient has NOT had contact with known/suspected case of Coronavirus? Proceed with normal triage procedures. - Social history:: Smoking status: Patient denies any tobacco usage or history of. - Ebola Screening: : No symptoms or risks identified at this time. Screenin:43 Abuse screen: Denies threats or abuse. Denies injuries from another. Nutritional sv screening: No deficits noted. Tuberculosis screening: No symptoms or risk factors identified. Fall Risk None identified. Assessment: 15:06 Reassessment: Patient appears in no apparent distress at this time. No changes from sv previously documented assessment. Patient and/or family updated on plan of care and expected duration. Pain level reassessed. Patient is alert, oriented x 3, equal unlabored respirations, skin warm/dry/pink. Vital Signs: 14:32 BP 119 / 68; Pulse 75; Resp 18; Temp 97.8(O); Pulse Ox 99% on R/A; jb1 ED Course: 14:28 Patient arrived in ED. sv 14:29 Samantha Pitts RN is Primary Nurse. sv 14:31 Cristina Sewell [facility]C [facility]. kb 14:31 Pascual Lundy MD is Attending Physician. kb 14:34 Triage completed. sv 14:42 Arm band placed on. sv 14:43 Patient has correct armband on for positive identification. Bed in low position. Call sv light in reach. 15:05 No provider procedures requiring assistance completed. Patient did not have IV access sv during this emergency room visit. Administered Medications: 15:05 Drug: Tylenol 1000 mg Route: PO; sv 15:05 Follow up: Response: No adverse reaction; Medication administered at discharge. sv Outcome: 14:44 Discharge ordered by . kb 15:05 Discharged to home ambulatory. sv 15:05 Condition: stable 15:05 Discharge instructions given to patient, Instructed on discharge instructions, follow up and referral plans. Demonstrated understanding of instructions, follow-up care. 15:06 Patient left the ED. sv Signatures: Chi Hernandez jb1 Cristina Sewell FNP-C FNP-Samantha Mora RN RN sv
[2019-08-07] MEDS ORDERED: ACETAMINOPHEN 500 MG TAB ONE (14:52)
[2019-08-07 21:25] VITALS: BP 119/68; TEMP 97.8; O2SAT 99
== END 2019-08-07 15:06 | disposition home or self-care (01) ==
LOC: ER 14:26
DX: S16.1XXA Strain of muscle, fascia and tendon at neck level, initial encounter (principal); V43.32XA Unspecified car occupant injured in collision with other type car in nontraffic accident, initial encounter; Y93.89 Activity, other specified; Y92.9 Unspecified place or not applicable
CPT/HCPCS: 99283

== ENCOUNTER 2019-09-08 16:19 | Emergency (ER) | payer SELFPAY ==
--- NOTE | 2019-09-08 17:06 | EDPHYS ---
Physician Documentation [facility] Name: Sidra Hodges Age: 44 yrs Sex: Female : 1975 Arrival Date: 09/08/2019 Time: 16:21 Bed 20 Private MD: ED Physician Yong Banks HPI: 09/07 16:33 This 44 yrs old Female presents to ER via EMS with complaints of neck pain.. rn 16:54 The patient or guardian complains of pain. The symptoms are located diffusely. Onset: rn The symptoms/episode began/occurred 4 month(s) ago. Associated signs and symptoms: Pertinent negatives: headache, bladder incontinence, bowel incontinence, nausea, numbness, tingling, vomiting, weakness. The pain does not radiate. Modifying factors: The symptoms are alleviated by remaining still, the symptoms are aggravated by movement, pressure. Severity of symptoms: At their worst the symptoms were mild, in the emergency department the symptoms are unchanged. The patient has experienced similar episodes in the past, chronically. Reports neck pain for a few months, since April, states after fall. [facility] has not gotten better, has had imaging of neck before without acute findings. Denies new trauma or symptoms. Hurts more on sides of neck with movement and palpation. Has not tried any medication because [facility] does not have any. . 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 - Social history:: Smoking status: Patient denies any tobacco usage or history of. - Family history:: not pertinent. - Hospitalizations: : No recent hospitalization is reported. ROS: 17:01 Constitutional: Negative for fever, chills, and weight loss, Eyes: Negative for injury, rn pain, redness, and discharge, Neck: Negative for new injury or swelling Neuro: Negative for headache, weakness, numbness, tingling, and seizure. Exam: 17:01 Constitutional: This is a well developed, well nourished patient who is awake, alert, rn and in no acute distress. Ambulatory to room without assistance. Head/Face: Normocephalic, atraumatic. Eyes: Pupils equal round and reactive to light, extra-ocular motions intact. Lids and lashes normal. Conjunctiva and sclera are non-icteric and not injected. Cornea within normal limits. Periorbital areas with no swelling, redness, or edema. Neck: No midline cervical tenderness. + tenderness along bilateral lateral sides of neck. No skin changes. Vital Signs: 16:25 BP 112 / 81; Pulse 88; Resp 18; Temp 97.8(O); Pulse Ox 97% on R/A; Pain 10/10; em 16:25 pt does not know ht or wt em MDM: 16:21 Patient medically screened. rn 17:01 Differential diagnosis: arthritis, Cervical Raiculopathy cervical strain, Spondylosis rn torticollis. Data reviewed: vital signs, nurses notes, old medical records, and as a result, I will discharge patient. Counseling: I had a detailed discussion with the patient and/or guardian regarding: the historical points, exam findings, and any diagnostic results supporting the discharge/admit diagnosis, radiology results, the need for outpatient follow up, to return to the emergency department if symptoms worsen or persist or if there are any questions or concerns that arise at home. Special discussion: I discussed with the patient/guardian in detail that at this point there is no indication for admission to the hospital. It is understood, however, that if the symptoms persist or worsen the patient needs to return immediately for re-evaluation. Special discussion: Further emergent ED testing is not indicated at this point in time. I discussed with the patient/guardian in detail the need to arrange with the PCP or specialist further outpatient testing, MRI, Based on the history and exam findings, there is no indication for further emergent testing or inpatient evaluation. I discussed with the patient/guardian the need to see the back specialist for further evaluation of the symptoms. ED course: No a acute injury or new neuro symptoms, ct cspine in June without acute findings, will dc home with muscle relaxers, OTC pain meds, and rest. . Administered Medications: 16:35 CANCELLED (Duplicate Order): vancoMYCIN 1 grams IVPB once over 2 hrs rn 16:35 CANCELLED (Duplicate Order): Zosyn 3.375 grams IVPB once over 60 mins; (mix in NS 100 rn mL) Disposition: 09/08/19 17:05 Discharged to Home. Impression: Strain of muscle, fascia and tendon at neck level, Muscle spasm. - Condition is Stable. - Discharge Instructions: Cervical Sprain, [id number]. - Prescriptions for Cyclobenzaprine 10 mg Oral Tablet - take 1 tablet by ORAL route every 8 hours As needed; 15 tablet. - Medication Reconciliation Form, Thank You Letter, Antibiotic Education, Prescription Opioid Use form. - Follow up: Private Physician; When: As needed; Reason: Recheck today's complaints, Re-evaluation by your physician. - Problem is an ongoing problem. - Symptoms are unchanged. Signatures: Florentin Heath RN RN em Yong Banks MD MD development intern: (The following items were deleted from the chart) 16:35 16:35 vancoMYCIN 1 grams IVPB once over 2 hrs ordered. rn lucinda 16:35 16:35 Zosyn 3.375 grams IVPB once over 60 mins; (mix in NS 100 mL) ordered. lucinda jane 17:42 17:05 09/08/2019 17:05 Discharged to Home. Impression: Strain of muscle, fascia and em tendon at neck level; Muscle spasm. Condition is Stable. Forms are Medication Reconciliation Form, Thank You Letter, Antibiotic Education, Prescription Opioid Use. Follow up: Private Physician; When: As needed; Reason: Recheck today's complaints, Re-evaluation by your physician. Problem is an ongoing problem. Symptoms are unchanged. lucinda
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
[2019-09-08 18:03] VITALS: BP 112/81; TEMP 97.8; O2SAT 97
== END 2019-09-08 17:42 | disposition home or self-care (01) ==
LOC: ER 16:19
DX: S16.1XXA Strain of muscle, fascia and tendon at neck level, initial encounter (principal); X58.XXXA Exposure to other specified factors, initial encounter; M62.838 Other muscle spasm
CPT/HCPCS: 99283

== ENCOUNTER 2019-10-24 13:14 | Emergency (ER) | payer SELFPAY ==
--- NOTE | 2019-10-24 13:37 | EDPHYS ---
Physician Documentation [facility] Name: Sidra Hodges Age: 44 yrs Sex: Female : 1975 Arrival Date: 10/24/2019 Time: 13:20 Bed 26 Private MD: ED Physician Yong Banks HPI: 10/23 13:28 This 44 yrs old Female presents to ER via EMS with complaints of hunger. rn 13:28 [facility] brought patient in, [place] [facility], was [place], sounds like pediatrician were involved, rn reports she just needs to speak with police because she needs a check or money to buy food. Asked if she wants food now, and she states no, states wants to get money to buy her own food. No medical complaints. . Onset: The symptoms/episode began/occurred just prior to arrival. Severity of symptoms: At their worst the symptoms were mild in the emergency department the symptoms are unchanged. The patient has not experienced similar symptoms in the past. The patient has not recently seen a physician. 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 - Social history:: Smoking status: Patient denies any tobacco usage or history of. - Family history:: not pertinent. - Hospitalizations: : No recent hospitalization is reported. ROS: 13:28 Constitutional: Negative for fever, chills, and weight loss, Eyes: Negative for injury, rn pain, redness, and discharge, Neck: Negative for injury, pain, and swelling, Cardiovascular: Negative for chest pain, palpitations, and edema, Respiratory: Negative for shortness of breath, cough, wheezing, and pleuritic chest pain, Abdomen/GI: Negative for abdominal pain, nausea, vomiting, diarrhea, and constipation, MS/Extremity: Negative for injury and deformity, Skin: Negative for injury, rash, and discoloration, Neuro: Negative for headache, weakness, numbness, tingling, and seizure. 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 ENT: MMM Cardiovascular: Regular rate and rhythm. No pulse deficits. Respiratory: No increased work of breathing, no retractions or nasal flaring. Abdomen/GI: soft, non-tender MS/ Extremity: Pulses equal, no cyanosis. Neurovascular intact. Full, normal range of motion. Equal circumference. Neuro: Awake and alert, GCS 15, oriented to person, place, time, and situation. Cranial nerves II-XII grossly intact. Motor strength 5/5 in all extremities. Sensory grossly intact. Cerebellar exam normal. Normal gait. Vital Signs: 14:00 BP 135 / 74; Pulse 75; Resp 16; Temp 98.0; Pulse Ox 100% on R/A; iw MDM: 13:23 Patient medically screened. rn 13:35 Differential Diagnosis anxiety, hunger. Data reviewed: vital signs, nurses notes, and rn as a result, I will discharge patient. Counseling: I had a detailed discussion with the patient and/or guardian regarding: the historical points, exam findings, and any diagnostic results supporting the discharge/admit diagnosis, the need for outpatient follow up, to return to the emergency department if symptoms worsen or persist or if there are any questions or concerns that arise at home. Special discussion: I discussed with the patient/guardian in detail that at this point there is no indication for admission to the hospital. It is understood, however, that if the symptoms persist or worsen the patient needs to return immediately for re-evaluation. ED course: No acute medical complaints, will dc home. Offered food and drink here, she declined. . 10/23 13:47 Order name: Diet Regular; Complete Time: 13:47 iw Administered Medications: No medications were administered Disposition: 10/24/19 13:37 Discharged to Home. Impression: Anxiety disorder, unspecified. - Condition is Stable. - Discharge Instructions: Generalized Anxiety Disorder. - Medication Reconciliation Form, Thank You Letter, Antibiotic Education, Prescription Opioid Use form. - Follow up: Private Physician; When: As needed; Reason: Recheck today's complaints, Re-evaluation by your physician. - Problem is new. - Symptoms are unchanged. Signatures: Laila Foreman RN RN iw Yong Banks MD MD rn Calderon, Audri RN RN aa5 Corrections: (The following items were deleted from the chart) 14:34 13:37 10/24/2019 13:37 Discharged to Home. Impression: Anxiety disorder, unspecified. aa5 Condition is Stable. Forms are Medication Reconciliation Form, Thank You Letter, Antibiotic Education, Prescription Opioid Use. Follow up: Private Physician; When: As needed; Reason: Recheck today's complaints, Re-evaluation by your physician. Problem is new. Symptoms are unchanged. rn
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
== END 2019-10-24 14:34 | disposition home or self-care (01) ==
LOC: ER 13:14
DX: F41.9 Anxiety disorder, unspecified (principal)
CPT/HCPCS: 99283

== ENCOUNTER 2019-10-25 16:30 | Emergency (ER) | payer SELFPAY ==
--- OUTSIDE RECORDS SUMMARY | 2019-10-25 16:32 | XMS REPORT ---
:1975 Author Organization [facility] t Address [address] [place] [address] Care Team Providers Name Role Phone Unavailable [...] Reference Range Comments Valproic Acid Level (test code = Valproic Acid Level) 57.6 ug/mL (g) 50.0-100.0 Hemoglobin [id number] 09:36:00 Test Item Value Reference Range Comments Hemoglobin A1c (test code = 5.0 % 4.8-5.9 Non Diabetic 4.8-5.9%Diabetic Hemoglobin A1c) <7.0% CT Shoulder w/o Contrast [id number] 16:49:13Patient: BHUMIKA JONES Date/Time01/09/2019 16:14 CDTReason for ExamInjuryReportCT Shoulder w/o Contrast LeftCLINICAL INFORMATION: InjuryCOMPARISON: Left shoulder series dated January 07, 2019TECHNIQUE: Helical CT imaging of the left shoulder wasperformed without intravenous or intra-articular contrast. Coronal and sagittal reformats were provided. One or more of the following dose reduction techniques were used: Automated exposure control, ad justment of the mA and/or kV according to [...] disease in the right lower lobe.LOCATION: R16 Final Dictated by: MD Frank Adam FDictated DT/TM: 01/09/2019 4:43 pmSigned by: MD Frank Adam FSigned (Electronic Signature): 01/09/2019 4:49 pmRPR [id number] 21:33:20 Test Item Value Reference Range Comments RPR Qual (test code = RPR Qual) Non-Reactive Non-Reactive Reactive Control (test code = Reactive Reactive Control) Weak Reactive Control (test code = Weak Weak Reactive Reactive Control) Non-Reactive Control (test code = Non-Reactive Non-Reactive Control) Lot # (test code = Lot #) [id number] Expiration Dt (test code = Expiration Dt) 04-23-2020 XR Shoulder Complete 2+ Views [id number] 15:41:25Patient: BHUMIKA JONES Date/Time01/07/2019 15:25 CDTReason for Examleft shoulder pain;Pain (please specify)ReportDictation location R 16Left shoulder 3 viewsHISTORY: PainCOMMENT:Frontal [...] 3:39 pmSigned by: MD Bobby Phebe CSigned (Electronic Signature): 01/07/2019 3:41 pmThyroid Stimulating [id number] 03:07:04 Test Item Value Reference Range Comments TSH (test code = TSH) 9.650 mIU/mL 0.270-4.200 Lipid [id number] 03:07:03 Test Item Value Reference Range Comments Cholesterol Total (test code 199 mg/dL 0-200 RIS K OF HEART DISEASEPublished = Cholesterol Total) by [employer] Analyte Optimal Borderline Increased RiskCH OL <200 200-239 >240TRIG <150 150-199 >200HDL Male >6 0 <40HDL Female >60 <50 LDL <100 130-159 >160LDL Near optimal is 100-129 Triglycerides (test code = 86 mg/dL 9-200 Triglycerides) HDL (test code = HDL) 72 mg/dL 50-60 LDL (test code = LDL) 110 mg/dL 0-130 The equati on being used in this calculation is LDL = (Chol - HDL) - (Trig / 5 ) VLDL (test code = VLDL) 17 mg/dL 5-40 The equa tion being used in this calculation is VLDL = Trig / 5 Chol/HDL (test code = 2.8 ratio 0.0-4.4 Chol/HDL) LDL/HDL Ratio (test code = 2 The e quation being used in this LDL/HDL Ratio) calculation is LDL/HDL Ratio=LDL Calc/H DL Chol HCG Qualitative [id number] 02:33:13 Test Item Value Reference Range Comments HCG, Serum Qual (test code = HCG, Serum Qual) Negative Lot # (test code = Lot #) [id number] Expiration Dt (test code = Expiration Dt) 2020-04-23 Neg Control (test code = Neg Control) Negative Pos Control (test code = Pos Control) Positive Internal QC (test code = Internal QC) Acceptable Drugs of Abuse Urine [id number] 18:58:11 Test Item Value Reference Range Comments Amphetamine Screen Ur (test code Negative Negative For diagnostic purposes = Amphetamine Screen Ur) only. P ositive results should always be assessed in conjunction with a patient's medical history. Barbiturate Screen Ur (test code Negative Negative = Barbiturate Screen Ur) Benzodiazepines Ur (test code = Negative Negative Benzodiazepines Ur) Cocaine Screen Ur (test code = Negative Negative Cocaine Screen Ur) U Methadone (test code = U Negative Negative Methadone) Opiate Screen Ur (test code = Negative Negative Opiate Screen Ur) U PCP Scrn (test code = U PCP Negative Negative Scrn) U Propoxyphene (test code = U Negative Negative Propoxyphene) Cannabinoid Screen Ur (test code Negative Negative = Cannabinoid Screen Ur) Alcohol [id number] 18:47:34 Test Item Value Reference Range Comments Ethanol Level (test code = <0.00 g/dL 0.00-0.01 Intox icated 0.080 g/dL or more Ethanol Level) Ethanol Inst (test code = <0 Ethanol Inst) Comprehensive Metabolic [id number] 18:47:33 Test Item Value Reference Range Comments Sodium Level (test code = Sodium Level) 142.0 mmol/L 135.0-14 5.0 Potassium Level (test code = Potassium Level) 4.5 mmol/L 3. 5-5.1 Chloride Level (test code = Chloride Level) 105 mmol/L 98-1 05 CO2 (test code = CO2) 26 mmol/L 22-29 Anion Gap (test code = Anion Gap) 11 mmol/L 7-16 BUN (test code = BUN) 12.20 mg/dL 6.00-20.00 Creatinine Level (test code = Creatinine Level) 0.50 mg/dL 0.50-0.90 BUN/Creat Ratio (test code = BUN/Creat Ratio) 24 Glucose Level (test code = Glucose Level) 81 mg/dL 70-115 Calcium Level (test code = Calcium Level) 9.3 mg/dL 8.3-10 .5 Alk Phos (test code = Alk Phos) 59 U/L 35-104 Bilirubin Total (test code = Bilirubin Total) 0.2 mg/dL 0. 1-0.9 Albumin Level (test code = Albumin Level) 3.6 g/dL 3.5-5. 2 Protein Total (test code = Protein Total) 7.3 g/dL 6.4-8. 3 ALT (test code = ALT) 11 U/L 1-33 AST (test code = AST) 21 U/L 1-32 Globulin (test code = Globulin) 3.7 g/dL 2.9-3.1 A/G Ratio (test code = A/G Ratio) 1.0 ratio Comprehensive Metabolic [id number] 18:47:33 Test Item Value Reference Range Comments Sodium Level (test code = 142.0 mmol/L 135.0-145.0 Sodium Level) Potassium Level (test 4.5 mmol/L 3.5-5.1 code = Potassium Level) Chloride Level (test code 105 mmol/L 98-105 = Chloride Level) CO2 (test code = CO2) 26 mmol/L 22-29 Anion Gap (test code = 11 mmol/L 7-16 Anion Gap) BUN (test code = BUN) 12.20 mg/dL 6.00-20.00 Creatinine Level (test 0.50 mg/dL 0.50-0.90 code = Creatinine Level) BUN/Creat Ratio (test 24 code = BUN/Creat Ratio) Glucose Level (test code 81 mg/dL 70-115 = Glucose Level) Calcium Level (test code 9.3 mg/dL 8.3-10.5 = Calcium Level) Alk Phos (test code = Alk 59 U/L 35-104 Phos) Bilirubin Total (test 0.2 mg/dL 0.1-0.9 code = Bilirubin Total) Albumin Level (test code 3.6 g/dL 3.5-5.2 = Albumin Level) Protein Total (test code 7.3 g/dL 6.4-8.3 = Protein Total) ALT (test code = ALT) 11 U/L 1-33 AST (test code = AST) 21 U/L 1-32 Globulin (test code = 3.7 g/dL 2.9-3.1 Globulin) A/G Ratio (test code = 1.0 ratio A/G Ratio) eGFR AA (test code = eGFR >60 mL/min/1.73 m2 eGF R (estimated AA) Glomerular Filtr ation Rate) is an john mated value, calculate d from the patient's se rum creatinine using the MDRD equation. It is NOT the patient's actual GFR. The eGFR provides a more clinically usefu l measure of kidney diseas e than serum creatinine alone.This ca lculation takes sex and ra ce into account, if the information is p rovided. If the race is n ot provided, and th e patient is -Ameri can, multiply by 1.21 2. If sex is not provided, and the patient is femal e, multiply by 0.74 2. Results for devi ents <18 years of age hav e not been validated b y the MDRD study and angélica rockwell be interpreted with caution. eGFR Result Interpretation:e GFR > or = 60 is in the N ormal RangeeGFR < 60 m ay mean kidney diseaseeG FR < 15 may mean kidney failure Range s recommended by cyndee monroy National Kidney Foundation, http://nkdep.nih .gov Comprehensive Metabolic [id number] 18:47:33 Test Item Value Reference Range Comments Sodium Level (test code = 142.0 mmol/L 135.0-145.0 Sodium Level) Potassium Level (test 4.5 mmol/L 3.5-5.1 code = Potassium Level) Chloride Level (test code 105 mmol/L 98-105 = Chloride Level) CO2 (test code = CO2) 26 mmol/L 22-29 Anion Gap (test code = 11 mmol/L 7-16 Anion Gap) BUN (test code = BUN) 12.20 mg/dL 6.00-20.00 Creatinine Level (test 0.50 mg/dL 0.50-0.90 code = Creatinine Level) BUN/Creat Ratio (test 24 code = BUN/Creat Ratio) Glucose Level (test code 81 mg/dL 70-115 = Glucose Level) Calcium Level (test code 9.3 mg/dL 8.3-10.5 = Calcium Level) Alk Phos (test code = Alk 59 U/L 35-104 Phos) Bilirubin Total (test 0.2 mg/dL 0.1-0.9 code = Bilirubin Total) Albumin Level (test code 3.6 g/dL 3.5-5.2 = Albumin Level) Protein Total (test code 7.3 g/dL 6.4-8.3 = Protein Total) ALT (test code = ALT) 11 U/L 1-33 AST (test code = AST) 21 U/L 1-32 Globulin (test code = 3.7 g/dL 2.9-3.1 Globulin) A/G Ratio (test code = 1.0 ratio A/G Ratio) eGFR AA (test code = eGFR >60 mL/min/1.73 m2 eGF R (estimated AA) Glomerular Filtr ation Rate) is an john mated value, calculate d from the patient's se rum creatinine using the MDRD equation. It is NOT the patient's actual GFR. The eGFR provides a more clinically usefu l measure of kidney diseas e than serum creatinine alone.This ca lculation takes sex and ra ce into account, if the information is p rovided. If the race is n ot provided, and th e patient is -Ameri can, multiply by 1.21 2. If sex is not provided, and the patient is femal e, multiply by 0.74 2. Results for devi ents <18 years of age hav e not been validated b y the MDRD study and angélica rockwell be interpreted with caution. eGFR Result Interpretation:e GFR > or = 60 is in the N ormal RangeeGFR < 60 m ay mean kidney diseaseeG FR < 15 may mean kidney failure Range s recommended by t National Kidney Foundation, http://nkdep.nih .gov eGFR Non-AA (test code = >60.00 mL/min/1.73 eGFR (estimated eGFR Non-AA) m2 Glomerular Filtr ation Rate) is an john mated value, calculate d from the patient's se rum creatinine using the MDRD equation. It is NOT the patient's actual GFR. The eGFR provides a more clinically usefu l measure of kidney diseas e than serum creatinine alone.This ca lculation takes sex and ra ce into account, if the information is p rovided. If the race is n ot provided, and th e patient is -Ameri can, multiply by 1.21 2. If sex is not provided, and the patient is femal e, multiply by 0.74 2. Results for devi ents <18 years of age hav e not been validated b y the MDRD study and angélica rockwell be interpreted with caution. eGFR Result Interpretation:e GFR > or = 60 is in the N ormal RangeeGFR < 60 m ay mean kidney diseaseeG FR < 15 may mean kidney failure Range s recommended by t porfirio National Kidney Foundation, http://nkdep.nih .gov Complete Blood Count with [id number] 18:15:23 Test Item Value Reference Range Comments WBC (test code = WBC) 5.2 x10 4.4-10.5 RBC (test code = RBC) 3.74 x10 3.75-5.20 Hgb (test code = Hgb) 9.9 g/dL 12.2-14.8 MCV (test code = MCV) 83.70 fL 80.00-100.00 Hct (test code = Hct) 31.3 % 36.5-44.4 MCHC (test code = MCHC) 31.60 g/dL 32.00-37.50 MCH (test code = MCH) 26.5 pg 27.0-32.5 RDW CV (test code = RDW CV) 17.8 % 11.5-14.5 Platelets (test code = 157.0 x10 140.0-440.0 Platelets) MPV (test code = MPV) 11.3 fL Slide Review (test code = Auto Auto Result created by Slide Review) [id number] _AUTO nRBC (test code = nRBC) 0 NRBC Abs (test code = NRBC 0.00 x10 Abs) IPF (test code = IPF) 0 % Automated [id number] 18:15:23 Test Item Value Reference Range Comments Neutro Auto (test code = Neutro Auto) 42.1 % 36.0-70.0 Lymph Auto (test code = Lymph Auto) 40.0 % 12.0-44.0 Barron Auto (test code = Barron Auto) 12.2 % 0.0-11.0 Eos, Auto (test code = Eos, Auto) 4.9 % 0.0-7.0 Basophil Auto (test code = Basophil Auto) 0.6 % 0.0-2. 0 Neutro Absolute (test code = Neutro Absolute) 2.2 x10 1. 6-7.4 Lymph Absolute (test code = Lymph Absolute) 2.06 x10 .50- 4.60 Barron Absolute (test code = Barron Absolute) .63 x10 .00-1. 20 Eos Absolute (test code = Eos Absolute) 0.25 x10 0.00-0.7 4 Baso Absolute (test code = Baso Absolute) 0.03 x10 0.00-0 .21 IG [id number] 18:15:23 Test Item Value Reference Range Comments IG (test code = IG) 0.2 % 0.0-5.0 IG Abs (test code = IG Abs) 0 x10
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
== END 2019-10-25 17:24 | disposition left against medical advice (07) ==
LOC: ER 16:30
DX: Z53.21 Procedure and treatment not carried out due to patient leaving prior to being seen by health care provider (principal)
CPT/HCPCS: 99282

== ENCOUNTER 2019-11-01 21:31 | Emergency (ER) | payer SELFPAY ==
[2019-11-01] MEDS ORDERED: ACETAMINOPHEN 500 MG TAB ONE (22:46)
--- NOTE | 2019-11-01 23:42 | ER ---
Nurse's Notes [facility] Name: Sidra Hodges Age: 44 yrs Sex: Female : 1975 Arrival Date: 11/01/2019 Time: 21:34 Bed 7 Private MD: Diagnosis: Epilepsy and recurrent seizures;Anxiety disorder, unspecified Presentation: 10/31 21:36 Chief complaint: Patient states: Arrested at [facility] by PD. While at PD she started ll1 spitting up blood, when EMS arrived bleeding had stopped. After leaving, EMS was called back for seizure-like activity. Patient was found on floor. She reports neck pain, left knee pain, and weakness. Coronavirus screen: Proceed with normal triage. Patient denies a cough. Patient denies shortness of breath or difficulty breathing. Patient denies measured and/or subjective temperature greater than 100.4F prior to today's visit. Patient denies travel on a cruise ship or to a country the [facility] currently lists as an affected area. Patient denies contact with known and/or suspected case of COVID-19. Ebola Screen: Patient denies travel to an Ebola-affected area in the 21 days before illness onset. Initial Sepsis Screen: Does the patient meet any 2 criteria? No. Patient's initial sepsis screen is negative. Does the patient have a suspected source of infection? No. Patient's initial sepsis screen is negative. Risk Assessment: Do you want to hurt yourself or someone else? Patient reports no desire to harm self or others. Onset of symptoms was November 01, 2019. 21:36 Method Of Arrival: EMS: [place] [id number] 21:36 Acuity: [facility] 3 ll1 Historical: - Allergies: 21:41 NKA; ll1 - PMHx: 21:41 ADD/ADHD; Anxiety; Bipolar disorder; Chronic pain; hemorrhoids; psychiatric; Seizures; ll1 - Social history:: Patient/guardian denies using alcohol, street drugs, tobacco products. Screenin:40 Abuse screen: Denies threats or abuse. Nutritional screening: No deficits noted. jb4 Tuberculosis screening: No symptoms or risk factors identified. Fall Risk None identified. Assessment: 21:40 General: Appears in no apparent distress. comfortable, Behavior is calm, cooperative, jb4 appropriate for age. Pain: Complains of pain in Headache. Pain does not radiate. Pain currently is 4 out of 10 on a pain scale. Quality of pain is described as throbbing, Pain began This morning. Neuro: Level of Consciousness is awake, alert, obeys commands, Oriented to person, place, time, situation. Cardiovascular: Patient's skin is warm and dry. Respiratory: Airway is patent Respiratory effort is even, unlabored, Respiratory pattern is regular, symmetrical. GI: No signs and/or symptoms were reported involving the gastrointestinal system. : No signs and/or symptoms were reported regarding the genitourinary system. EENT: Pt has bite hanks interiorly around the opening of the mouth on the cheeks. Pt is spitting blood.. Derm: Skin is intact, Skin is pink, warm \\T\\ dry. Musculoskeletal: Circulation, motion, and sensation intact. Range of motion: intact in all extremities. 22:20 Reassessment: PT states" I have a headache because the police were chasing me and I jb4 haven't eaten anything this morning. I have seizures. I have epileptic episodes when I get angry. I was being chased by the police, I was in [facility] and was so angry that I had an epileptic episode." per cultural link mixed animal veterinarian. Physician at the bedside. 22:50 Reassessment: Patient appears in no apparent distress at this time. Patient and/or jb4 family updated on plan of care and expected duration. Pain level reassessed. Patient is alert, oriented x 3, equal unlabored respirations, skin warm/dry/pink. PT is currently refusing labs, IV, and EKG Provider notified, Pt taken to CT. 23:20 Reassessment: Patient appears in no apparent distress at this time. Patient and/or jb4 family updated on plan of care and expected duration. Pain level reassessed. Patient is alert, oriented x 3, equal unlabored respirations, skin warm/dry/pink. PT slumped over in wheelchair. Put back in bed. immediately started taking of vital sign equipment once placed on and began asking for a phone and saying she wants to go home per [place]ian speaking officer. Police notified patient she was not allowed to use the phone at this time. Pt 100% on room air. Pulse 64. Continues to refuse medical treatment. 23:40 Reassessment: Pt slid to the edge of the bed in an attempt to stand up. Pt asking for jb4 telephone. When told she could not use the phone by medical staff and police she began to cry and attempt to throw herself in the floor. When stopped from being able to get out of the bed, pt began to try to kick medical staff, was cuffed by law enforcement and slid back in the bed. Per [place] speaking officer patient states " I want to go to [facility] I do not want to be here." Cultural linked used, asked patient if she wanted to go to [facility]. Per cultural link pt states " I want to go home I wan to call my family." When pt was informed this would not happen at this time. Pt slumped over with eyes closed. Cuff's were removed and patient laid in bed for evaluation. Pt opened eyes slightly, was tracking movement of medical staff. Once B/p cuff placed on left arm, pt immediately pulled it off and took off the B/p cuff and began yelling at police and staff, and crying. Pt continues to ask for phone and to go home. Pt remains in bed with police at the bedside. 23:50 Reassessment: Patient appears in no apparent distress at this time. Provider decision jb4 to D/c patient. Pt remains uncooperative with police, assisted to wheelchair via police officers, Pt in cuffs. D/c instructions given to police, pt is sitting in wheelchair, escorted out of ED in police custody. Vital Signs: 21:36 BP 147 / 91; Pulse 75; Resp 18; Temp 98.2; Pulse Ox 98% ; Pain 4/10; ll1 22:50 BP 144 / 89; Pulse 64; Resp 16; Pulse Ox 99% on R/A; jb4 23:40 Pulse 64; Resp 16; Pulse Ox 100% on R/A; jb4 ED Course: 21:34 Patient arrived in ED. lp1 21:40 Triage completed. ll1 21:40 Patient has correct armband on for positive identification. Placed in gown. Bed in low jb4 position. Call light in reach. Side rails up X 1. Pulse ox on. NIBP on. 21:41 Arm band placed on Patient placed in an exam room, on a stretcher. ll1 21:51 Jose Armando Tavera MD is Attending Physician. mh7 22:24 Flo Diaz, RN is Primary Nurse. jb4 23:00 CT Head Brain wo Cont In Process Unspecified. EDMS 23:40 Shalom Carnes MD is Referral Physician. [facility] 23:50 No provider procedures requiring assistance completed. Patient did not have IV access jb4 during this emergency room visit. Administered Medications: 22:52 Drug: Tylenol 1000 mg Route: PO; jb4 23:40 Follow up: Response: No adverse reaction jb4 Outcome: 23:42 Discharge ordered by . 7 23:50 Discharged to home ambulatory. jb4 23:50 Condition: stable 23:50 Discharge instructions given to police, Instructed on discharge instructions, follow up and referral plans. Demonstrated understanding of instructions, follow-up care. 11/01 00:07 Patient left the ED. jb4 Signatures: Dispatcher [employer] EDMS Sridevi Gentile RN RN lp1 Flo Diaz, RN RN jb4 Juan Bach RN RN ll1 Jose Armando Tavera MD MD [facility]
--- NOTE | 2019-11-01 23:42 | EDPHYS ---
Physician Documentation [facility] Name: Sidra Hodges Age: 44 yrs Sex: Female : 1975 Arrival Date: 11/01/2019 Time: 21:34 Bed 7 Private MD: ED Physician Jose Armando Tavera HPI: 10/31 23:11 This 44 yrs old Female presents to ER via EMS with complaints of Probable mh7 Seizure. 23:11 The patient presents after having a single isolated seizure, that lasted 2 minute(s), mh7 after having a possible seizure episode, no tonic-clonic activity was appreciated, no post-ictal period is described, the episode(s) was witnessed, by police. Character of seizure(s): Loss of consciousness: it is not known if the patient experienced loss of consciousness, Motor activity: focal activity, of the right arm and left arm, Incontinence: none, Apnea: the patient did not experience apnea, Circulation: the patient did not experience evidence of pulse disturbance, Eye movements: are unknown. Seizure onset: just prior to arrival. Context: the seizure(s) was witnessed, by police, occurred long term, occurred while the patient was receiving bad or unexpected news, sitting, Contributing factors: after being arrested and jailed. Seizure Hx: Original onset: longstanding. Associated injury: The patient did not suffer any apparent associated injury. EMS care: none. Current symptoms: headache, that is mild. The patient has experienced similar episodes in the past, multiple times. Historical: - Allergies: 21:41 NKA; ll1 - PMHx: 21:41 ADD/ADHD; Anxiety; Bipolar disorder; Chronic pain; hemorrhoids; psychiatric; Seizures; ll1 - Social history:: Patient/guardian denies using alcohol, street drugs, tobacco products. ROS: 23:11 Constitutional: Negative for fever, chills, and weight loss, Eyes: Negative for injury, mh7 pain, redness, and discharge, ENT: Negative for injury, pain, and discharge, Neck: Negative for injury, pain, and swelling, Cardiovascular: Negative for chest pain, palpitations, and edema, Respiratory: Negative for shortness of breath, cough, wheezing, and pleuritic chest pain, Abdomen/GI: Negative for abdominal pain, nausea, vomiting, diarrhea, and constipation, Back: Negative for injury and pain, : Negative for injury, bleeding, discharge, and swelling, MS/Extremity: Negative for injury and deformity, Skin: Negative for injury, rash, and discoloration. 23:11 Psych: Negative for depression, anxiety, suicide ideation, homicidal ideation, and hallucinations, Allergy/Immunology: Negative for hives, rash, and allergies, Endocrine: Negative for neck swelling, polydipsia, polyuria, polyphagia, and marked weight changes, Hematologic/Lymphatic: Negative for swollen nodes, abnormal bleeding, and unusual bruising. Exam: 23:11 Constitutional: This is a well developed, well nourished patient who is awake, alert, mh7 and in no acute distress. Head/Face: Normocephalic, atraumatic. Eyes: Pupils equal round and reactive to light, extra-ocular motions intact. Lids and lashes normal. Conjunctiva and sclera are non-icteric and not injected. Cornea within normal limits. Periorbital areas with no swelling, redness, or edema. ENT: Nares patent. No nasal discharge, no septal abnormalities noted. Tympanic membranes are normal and external auditory canals are clear. Oropharynx with no redness, swelling, or masses, exudates, or evidence of obstruction, uvula midline. Mucous membranes moist. Neck: Trachea midline, no thyromegaly or masses palpated, and no cervical lymphadenopathy. Supple, full range of motion without nuchal rigidity, or vertebral point tenderness. No Meningismus. Chest/axilla: Normal chest wall appearance and motion. Nontender with no deformity. No lesions are appreciated. Cardiovascular: Regular rate and rhythm with a normal S1 and S2. No gallops, murmurs, or rubs. Normal PMI, no JVD. No pulse deficits. Respiratory: Lungs have equal breath sounds bilaterally, clear to auscultation and percussion. No rales, rhonchi or wheezes noted. No increased work of breathing, no retractions or nasal flaring. Abdomen/GI: Soft, non-tender, with normal bowel sounds. No distension or tympany. No guarding or rebound. No evidence of tenderness throughout. Back: No spinal tenderness. No costovertebral tenderness. Full range of motion. Skin: Warm, dry with normal turgor. Normal color with no rashes, no lesions, and no evidence of cellulitis. MS/ Extremity: Pulses equal, no cyanosis. Neurovascular intact. Full, normal range of motion. 23:11 Neuro: Orientation: is normal, Mentation: is normal, Memory: is normal, immediate memory is intact, Cranial nerves: grossly normal, Cerebellar function: is grossly normal, Motor: is normal, Sensation: is normal, Gait: is steady, seizure activity, is not displayed by the patient, Abnormal movements: resting tremor, is located in the left arm and right arm. 23:11 Psych: Behavior/mood is anxious. Vital Signs: 21:36 BP 147 / 91; Pulse 75; Resp 18; Temp 98.2; Pulse Ox 98% ; Pain 4/10; ll1 22:50 BP 144 / 89; Pulse 64; Resp 16; Pulse Ox 99% on R/A; jb4 23:40 Pulse 64; Resp 16; Pulse Ox 100% on R/A; jb4 MDM: 21:52 Patient medically screened. [facility] 23:31 Differential diagnosis: seizure, Anxiety reaction, pseudoseizure. Data reviewed: [facility] signs, nurses notes, EMS record, radiologic studies, CT scan. Data interpreted: security monitor: rate is 64 beats/min, rhythm is normal sinus rhythm, Interpretation: normal rate, normal rhythm, Pulse oximetry: on room air is 99 %. Interpretation: normal. Counseling: I had a detailed discussion with the patient and/or guardian regarding: the historical points, exam findings, and any diagnostic results supporting the discharge/admit diagnosis, radiology results, the need for outpatient follow up. Refusal of service: The patient/guardian displays adequate decision making capability and despite a detailed discussion of alternatives, benefits, risks, and consequences refuses: all lab tests. ED course: NAD, VSS, no focal neurological deficits. No seizure activity in the ED. Awake, alert, and oriented x 3. Patient gets anxious and upset with police officers because they won't allow her to use phone. She refused lab work. Discussed test results and findings with patient. She will be discharged back into police custody. She can return to ED with any concerns.. 11/01 00:51 Counseling: I had a detailed discussion with the patient and/or guardian regarding: to [facility] return to the emergency department if symptoms worsen or persist or if there are any questions or concerns that arise at home. 10/31 22:28 Order name: CT Head Brain wo Cont [facility] 10/31 22:28 Order name: O2 Per Protocol; Complete Time: 22:52 [facility] 10/31 22:28 Order name: O2 Sat Monitoring; Complete Time: :52 [facility] Administered Medications: 10/31 22:52 Drug: Tylenol 1000 mg Route: PO; [facility] 23:40 Follow up: Response: No adverse reaction [facility] Disposition: 11/01/19 23:42 Discharged to Home. Impression: Epilepsy and recurrent seizures, Anxiety disorder, unspecified. - Condition is Stable. - Discharge Instructions: Seizure, Adult, [id number], Panic Attacks, [id number]. - Medication Reconciliation Form, Thank You Letter, Antibiotic Education, Prescription Opioid Use form. - Follow up: Private Physician; When: 1 - 2 days; Reason: Worsening of condition, Re-evaluation by your physician. Follow up: Shalom Carnes MD; When: 1 - 2 days; Reason: Worsening of condition, Re-evaluation by your physician. - Problem is an acute exacerbation. - Symptoms have improved. Signatures: Dispatcher [employer] EDMS Flo Diaz RN RN jb4 Juan Bach RN RN ll1 Jose Armando Tavera MD MD 7 Corrections: (The following items were deleted from the chart) 22: 22:28 Labs collected and sent ordered. [place] [id number] 22:53 22:28 Cardiac monitoring ordered. [place] [id number] :53 22:28 EKG - Nurse/Tech ordered. [place] [id number] :53 22:28 IV Saline Lock ordered. [place] [id number] 11/01 00:07 10/31 23:42 11/01/2019 23:42 Discharged to Home. Impression: Epilepsy and recurrent [facility] seizures; Anxiety disorder, unspecified. Condition is Stable. Forms are Medication Reconciliation Form, Thank You Letter, Antibiotic Education, Prescription Opioid Use. Follow up: Private Physician; When: 1 - 2 days; Reason: Worsening of condition, Re-evaluation by your physician. Follow up: Shalom Carnes; When: 1 - 2 days; Reason: Worsening of condition, Re-evaluation by your physician. Problem is an acute exacerbation. Symptoms have improved. [facility]
[2019-11-02 00:52] VITALS: TEMP 98.2
[2019-11-02 00:54] VITALS: BP 144/89
[2019-11-02 00:55] VITALS: O2SAT 100
--- NOTE | 2019-11-02 09:44 | RAD REPORT ---
EXAM DESCRIPTION: Head Brain Wo Cont CLINICAL HISTORY: 44 years Female SEIZURE COMPARISON: December 30, 2018. TECHNIQUE: Images were obtained in axial, sagittal, and coronal planes. This exam was performed according to our departmental dose-optimization program which includes use of Automated Exposure Control, adjustment of the mA and/or kV according to patient size and/or use of iterative reconstruction technique. FINDINGS: Ventricular system appears normal. No abnormal areas of increased or decreased attenuation are seen involving the brain parenchyma. No e xtra-axial fluid collections noted. No evidence for skull fracture. Minimal fluid right maxillary antrum. Symmetric aeration mastoid air cells bilaterally. IMPRESSION: No acute intracranial abnormality. No evidence for hemorrhage, mass lesion, or large acu te infarction. Minimal fluid right maxillary antrum. Electronically signed by: Elaine Linton MD 11/01/2019 11:13 PM CDT Due to temporary technical issues with the PACS/Fluency reporting system, reports are being signed by the in house radiologist as a courtesy to ensure prompt reporting. The interpreting radiologist is f ully responsible for the content of the report.
== END 2019-11-02 00:07 | disposition home or self-care (01) ==
LOC: ER 21:31
DX: F41.9 Anxiety disorder, unspecified (principal); F31.9 Bipolar disorder, unspecified
CPT/HCPCS: 70450; 99284

== ENCOUNTER 2019-11-04 20:20 | Emergency (ER) | payer SELFPAY ==
--- OUTSIDE RECORDS SUMMARY | 2019-11-04 20:22 | XMS REPORT ---
:[address] [facility] t Address [address] [place] [address] Care Team Providers Name Role Phone Favian CROFT Attending Clinician Nathan BARRETO Attending Clinician Unknown Attending Clinician Unavailable Shelbie BARRETO, S Attending Clinician James LINDA, G Attending Clinician Problems This patient has no known problems. Allergies, Adverse Reactions, Alerts This patient has no known allergies or adverse reactions. Medications This patient has no known medications. Procedures This patient has no known procedures. Encounters Start End Encounter Admission Attending Care Care Encounter Source Date/Time Date/Time Type Type Clinicians Facility Department ID 2019-10-25 2019-10-25 [facility] [id number] 18:31:31 19:21:00 Dwaine Gonzalez [id number] [place] [id number] [place] [id number] 2019-08-13 2019-08-13 [facility] [id number] 13:30:00 14:36:00 Jerry Gonzalez [id number] [place] [id number] [place] [id number] 2019-07-22 2019-07-22 Emergency Unknown, Attending TRAUMA [id number] 13:42:11 19:02:00 Lisa Morfin [facility] [id number] 2019-01-21 2019-01-21 Emergency Dre[place], [facility] [id number] 18:38:01 19:59:00 Le Gonzalez [id number] [place] [id number] [place] [id number] Results Test Description Test Time Test Comments Results Result Comments Source Valproic Acid Level 2019-01-12 08:03:22 Test Item Value Reference Range Interpretation Comme nts Valproic Acid Level (test code = Valproic Acid Level) 57.6 ug/mL(g) 50.0-100.0 Hemoglobin [id number] 09:36:00 Test Item Value Reference Range Interpretation Comments Hemoglobin A1c (test code 5.0 % 4.8-5.9 No n Diabetic = Hemoglobin A1c) 4.8-5.9%Di abetic <7.0% CT Shoulder w/o Contrast [id number] 16:49:13Patient: BHUMIKA JONES Date/Time01/09/2019 16:14 CDTReason for [...] Adam FSigned (Electronic Signature): 01/09/2019 4:49 pmRPR [id number] 21:33:20 Test Item Value Reference Range Interpretation Comments RPR Qual (test code = RPR Qual) Non-Reactive Non-Reactive Reactive Control (test code = Reactive Reactive Control) Weak Reactive Control (test Weak Reactive code = Weak Reactive Control) Non-Reactive Control (test code Non-Reactive = Non-Reactive Control) Lot # (test code = Lot #) [id number] Expiration Dt (test code = 04-23-2020 N Expiration Dt) XR Shoulder Complete 2+ Views [id number] 15:41:25Patient: BHUMIKA JONES Date/Time01/07/2019 15:25 CDTReason for [...] 01/07/2019 3:39 pmSigned by: MD Bobby Phebe CSdelaney (Electronic Signature): 01/07/2019 3:41 pmThyroid Stimulating [id number] 03:07:04 Test Item Value Reference Range Interpretation Comments TSH (test code = TSH) 9.650 mIU/mL 0.270-4.200 H Lipid [id number] 03:07:03 Test Item Value Reference Range Interpretation Comments Cholesterol Total 199 mg/dL 0-200 RISK OF HE ART (test code = DISEASEPublishe d by Cholesterol Total) Citizen Of [place] [employer] [place] Optimal Borderl ine Increased RiskC HOL <200 200-239 >2 40TRIG <150 150-199 >2 00HDL Male >60 <40H DL Female >60 <5 0LDL <100 130-159 >1 60LDL Near optimal is 100-129 Triglycerides (test 86 mg/dL 9-200 code = Triglycerides) HDL (test code = HDL) 72 mg/dL 50-60 H LDL (test code = LDL) 110 mg/dL 0-130 The eq uation being used in this calcula tion is LDL = (Chol - H DL) - (Trig / 5) VLDL (test code = 17 mg/dL 5-40 The equati on being used VLDL) in this calcula tion is VLDL = Trig / 5 Chol/HDL (test code = 2.8 ratio 0.0-4.4 Chol/HDL) LDL/HDL Ratio (test 2 N The equa tion being used code = LDL/HDL Ratio) in thi s calculation is LDL/HDL Ratio=L DL Calc/HDL Chol HCG Qualitative [id number] 02:33:13 Test Item Value Reference Range Interpretation Comments HCG, Serum Qual (test code = HCG, Negative Serum Qual) Lot # (test code = Lot #) [id number] Expiration Dt (test code = 2020-04-23 N Expiration Dt) Neg Control (test code = Neg Negative Control) Pos Control (test code = Pos Positive Control) Internal QC (test code = Internal Acceptable QC) Drugs of Abuse Urine [id number] 18:58:11 Test Item Value Reference Range Interpretation Comments Amphetamine Screen Ur Negative Negative For di agnostic (test code = Amphetamine pur poses only. Screen Ur) Positive result s should always b e assessed in conjunction wit h a patient's medic al history. Barbiturate Screen Ur Negative Negative (test code = Barbiturate Screen Ur) Benzodiazepines Ur (test Negative Negative code = Benzodiazepines Ur) Cocaine Screen Ur (test Negative Negative code = Cocaine Screen Ur) U Methadone (test code = Negative Negative U Methadone) Opiate Screen Ur (test Negative Negative code = Opiate Screen Ur) U PCP Scrn (test code = U Negative Negative PCP Scrn) U Propoxyphene (test code Negative Negative = U Propoxyphene) Cannabinoid Screen Ur Negative Negative (test code = Cannabinoid Screen Ur) Alcohol [id number] 18:47:34 Test Item Value Reference Range Interpretation Comments Ethanol Level (test <0.00 g/dL 0.00-0.01 Intoxica isabel 0.080 g/dL code = Ethanol or more Level) Ethanol Inst (test <0 N code = Ethanol Inst) Comprehensive Metabolic [id number] 18:47:33 Test Item Value Reference Range Interpretation Comments Sodium Level (test code = Sodium 142.0 mmol/L 135.0-145.0 Level) Potassium Level (test code = 4.5 mmol/L 3.5-5.1 Potassium Level) Chloride Level (test code = 105 mmol/L 98-105 Chloride Level) CO2 (test code = CO2) 26 mmol/L 22-29 Anion Gap (test code = Anion 11 mmol/L 7-16 Gap) BUN (test code = BUN) 12.20 mg/dL 6.00-20.00 Creatinine Level (test code = 0.50 mg/dL 0.50-0.90 Creatinine Level) BUN/Creat Ratio (test code = 24 N BUN/Creat Ratio) Glucose Level (test code = 81 mg/dL 70-115 Glucose Level) Calcium Level (test code = 9.3 mg/dL 8.3-10.5 Calcium Level) Alk Phos (test code = Alk Phos) 59 U/L 35-104 Bilirubin Total (test code = 0.2 mg/dL 0.1-0.9 Bilirubin Total) Albumin Level (test code = 3.6 g/dL 3.5-5.2 Albumin Level) Protein Total (test code = 7.3 g/dL 6.4-8.3 Protein Total) ALT (test code = ALT) 11 U/L 1-33 AST (test code = AST) 21 U/L 1-32 Globulin (test code = Globulin) 3.7 g/dL 2.9-3.1 H A/G Ratio (test code = A/G 1.0 ratio N Ratio) Comprehensive Metabolic [id number] 18:47:33 Test Item Value Reference Range Interpretation Comments Sodium Level (test 142.0 mmol/L 135.0-145.0 code = Sodium Level) Potassium Level 4.5 mmol/L 3.5-5.1 (test code = Potassium Level) Chloride Level (test 105 mmol/L 98-105 code = Chloride Level) CO2 (test code = 26 mmol/L 22-29 CO2) Anion Gap (test code 11 mmol/L 7-16 = Anion Gap) BUN (test code = 12.20 mg/dL 6.00-20.00 BUN) Creatinine Level 0.50 mg/dL 0.50-0.90 (test code = Creatinine Level) BUN/Creat Ratio 24 N (test code = BUN/Creat Ratio) Glucose Level (test 81 mg/dL 70-115 code = Glucose Level) Calcium Level (test 9.3 mg/dL 8.3-10.5 code = Calcium Level) Alk Phos (test code 59 U/L 35-104 = Alk Phos) Bilirubin Total 0.2 mg/dL 0.1-0.9 (test code = Bilirubin Total) Albumin Level (test 3.6 g/dL 3.5-5.2 code = Albumin Level) Protein Total (test 7.3 g/dL 6.4-8.3 code = Protein Total) ALT (test code = 11 U/L 1-33 ALT) AST (test code = 21 U/L 1-32 AST) Globulin (test code 3.7 g/dL 2.9-3.1 H = Globulin) A/G Ratio (test code 1.0 ratio N = A/G Ratio) eGFR AA (test code = >60 N eGFR (e stimated eGFR AA) mL/min/1.73 m2 Glomerular Filtration Rate ) is an estimated va lue, calculated from the patient's serum creatinine usin g the MDRD equation. It is NOT the patient 's actual GFR. The eGFR provides a more clinically usef ul measure of kidn ey disease than se rum creatinine alone.This calculation amy es sex and race in to account, if the information is provided. If th e race is not provided, and t he patient is -Shameka n, multiply by 1.2 12. If sex is not provided, and t he patient is fema le, multiply by 0.7 42. Results for pat ients <18 years of ag e have not been validated by [facility] MDRD study and should be interpreted wit h caution. eGFR R esult Interpretation: eGFR > or = 60 is in the Normal RangeeGF R < 60 may mean kid betzaida diseaseeGFR < 1 5 may mean kidney failure Rang es recommended by the National Kidney Foundation, http://nkdep.ni h.gov Comprehensive Metabolic [id number] 18:47:33 Test Item Value Reference Range Interpretation Comments Sodium Level (test 142.0 mmol/L 135.0-145.0 code = Sodium Level) Potassium Level 4.5 mmol/L 3.5-5.1 (test code = Potassium Level) Chloride Level (test 105 mmol/L 98-105 code = Chloride Level) CO2 (test code = 26 mmol/L 22-29 CO2) Anion Gap (test code 11 mmol/L 7-16 = Anion Gap) BUN (test code = 12.20 mg/dL 6.00-20.00 BUN) Creatinine Level 0.50 mg/dL 0.50-0.90 (test code = Creatinine Level) BUN/Creat Ratio 24 N (test code = BUN/Creat Ratio) Glucose Level (test 81 mg/dL 70-115 code = Glucose Level) Calcium Level (test 9.3 mg/dL 8.3-10.5 code = Calcium Level) Alk Phos (test code 59 U/L 35-104 = Alk Phos) Bilirubin Total 0.2 mg/dL 0.1-0.9 (test code = Bilirubin Total) Albumin Level (test 3.6 g/dL 3.5-5.2 code = Albumin Level) Protein Total (test 7.3 g/dL 6.4-8.3 code = Protein Total) ALT (test code = 11 U/L 1-33 ALT) AST (test code = 21 U/L 1-32 AST) Globulin (test code 3.7 g/dL 2.9-3.1 H = Globulin) A/G Ratio (test code 1.0 ratio N = A/G Ratio) eGFR AA (test code = >60 N eGFR (e stimated eGFR AA) mL/min/1.73 m2 Glomerular Filtration Rate ) is an estimated va lue, calculated from the patient's serum creatinine usin g the MDRD equation. It is NOT the patient 's actual GFR. The eGFR provides a more clinically usef ul measure of kidn ey disease than se rum creatinine alone.This calculation amy es sex and race in to account, if the information is provided. If th e race is not provided, and t he patient is -Shameka n, multiply by 1.2 12. If sex is not provided, and t he patient is fema le, multiply by 0.7 42. Results for pat ients <18 years of ag e have not been validated by [facility] MDRD study and should be interpreted wit h caution. eGFR R esult Interpretation: eGFR > or = 60 is in the Normal RangeeGF R < 60 may mean kid betzaida diseaseeGFR < 1 5 may mean kidney failure Rang es recommended by the National Kidney Foundation, http://nkdep.ni h.gov eGFR Non-AA (test >60.00 N eGFR (john mated code = eGFR Non-AA) mL/min/1.73 m2 Glomer ular Filtration Rate ) is an estimated va lue, calculated from the patient's serum creatinine usin g the MDRD equation. It is NOT the patient 's actual GFR. The eGFR provides a more clinically usef ul measure of kidn ey disease than se rum creatinine alone.This calculation amy es sex and race in to account, if the information is provided. If th e race is not provided, and t he patient is -Shameka n, multiply by 1.2 12. If sex is not provided, and t he patient is fema le, multiply by 0.7 42. Results for pat ients <18 years of ag e have not been validated by [facility] MDRD study and should be interpreted wit h caution. eGFR R esult Interpretation: eGFR > or = 60 is in the Normal RangeeGF R < 60 may mean kid betzaida diseaseeGFR < 1 5 may mean kidney failure Rang es recommended by the National Kidney Foundation, http://nkdep.ni h.gov Complete Blood Count with [id number] 18:15:23 Test Item Value Reference Range Interpretation Comments WBC (test code = WBC) 5.2 x10 4.4-10.5 RBC (test code = RBC) 3.74 x10 3.75-5.20 L Hgb (test code = Hgb) 9.9 g/dL 12.2-14.8 L MCV (test code = MCV) 83.70 fL 80.00-100.00 Hct (test code = Hct) 31.3 % 36.5-44.4 L MCHC (test code = 31.60 g/dL 32.00-37.50 L MCHC) MCH (test code = MCH) 26.5 pg 27.0-32.5 L RDW CV (test code = 17.8 % 11.5-14.5 H RDW CV) Platelets (test code = 157.0 x10 140.0-440.0 Platelets) MPV (test code = MPV) 11.3 fL N Slide Review (test Auto Auto Result cr eated by code = Slide Review) GL_SJM_ SLIDE_REV_AUTO nRBC (test code = 0 N nRBC) NRBC Abs (test code = 0.00 x10 N NRBC Abs) IPF (test code = IPF) 0 % N Automated [id number] 18:15:23 Test Item Value Reference Range Interpretation Comments Neutro Auto (test code = Neutro 42.1 % 36.0-70.0 Auto) Lymph Auto (test code = Lymph Auto) 40.0 % 12.0-44.0 [place]ubon Auto (test code = [place] Auto) 12.2 % 0.0-11.0 H Eos, Auto (test code = Eos, Auto) 4.9 % 0.0-7.0 Basophil Auto (test code = Basophil 0.6 % 0.0-2.0 Auto) Neutro Absolute (test code = Neutro 2.2 x10 1.6-7.4 Absolute) Lymph Absolute (test code = Lymph 2.06 x10 .50-4.60 Absolute) [place] Absolute (test code = [place] .63 x10 .00-1.20 Absolute) Eos Absolute (test code = Eos 0.25 x10 0.00-0.74 Absolute) Baso Absolute (test code = Baso 0.03 x10 0.00-0.21 Absolute) IG [id number] 18:15:23 Test Item Value Reference Range Interpretation Comments IG (test code = IG) 0.2 % 0.0-5.0 IG Abs (test code = IG Abs) 0 x10 N
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
[2019-11-04 21:00] LABS: Urine Blood NEGATIVE (NEG); Urine Glucose NEGATIVE (NEG); Urine Protein TRACE (NEG); Urine Specific Gravity >1.030 (1.005-1.030); Urine pH 5.5 (5.0-7.0)
[2019-11-04 21:01] LABS: Urine Bacteria <20 /HPF (<20); Urine RBC <5 /HPF (NONE SEEN)
[2019-11-04 21:02] LABS: Urine Culture Reflex Order NOT NEEDED
--- NOTE | 2019-11-04 21:29 | ER ---
Nurse's Notes [facility] Name: Sidra Hodges Age: 44 yrs Sex: Female : 1975 Arrival Date: 11/04/2019 Time: 20:28 Bed 20 Private MD: Diagnosis: Person with feared health complaint in whom no diagnosis is made Presentation: 11/03 20:30 Chief complaint: EMS states: Reported a panic attack. Pt states that she had an ao epileptic attack and felt like chest pain. Pt reports taking two Depakote prescribed pills to help with the epileptic attack. Seizure activity was unwitnessed and time is unkown. Coronavirus screen: Proceed with normal triage. Ebola Screen: Patient negative for fever greater than or equal to 101.5 degrees Fahrenheit, and additional compatible Ebola Virus Disease symptoms Patient denies exposure to infectious person. Patient denies travel to an Ebola-affected area in the 21 days before illness onset. Initial Sepsis Screen: Does the patient meet any 2 criteria? No. Patient's initial sepsis screen is negative. Does the patient have a suspected source of infection? No. Patient's initial sepsis screen is negative. Risk Assessment: Do you want to hurt yourself or someone else? Patient reports no desire to harm self or others. Onset of symptoms is unknown. 20:30 Method Of Arrival: EMS: [facility] ao 20:30 Acuity: CARMITA 3 ao Historical: - Allergies: 20:39 NKA; ao - Home Meds: 20:39 divalproex 500 mg oral TbEC [Active]; Risperdal 3 mg oral tab [Active]; ao - PMHx: 20:39 ADD/ADHD; Anxiety; Bipolar disorder; Chronic pain; hemorrhoids; psychiatric; Seizures; ao - PSHx: 20:39 Unable to obtain; ao - Immunization history:: Adult Immunizations up to date. - Social history:: Smoking status: Patient denies any tobacco usage or history of. Patient/guardian denies using alcohol, street drugs. Screenin:04 Abuse screen: Denies threats or abuse. Nutritional screening: No deficits noted. Tuberculosis screening: No symptoms or risk factors identified. Fall Risk None identified. Assessment: 20:45 General: Appears in no apparent distress. Behavior is cooperative. Neuro: Level of Consciousness is awake, alert, Oriented to person, place, time. Neuro: Reports. Cardiovascular: Heart tones S1 S2 present Capillary refill < 3 seconds Patient's skin is warm and dry. Respiratory: Airway is patent Respiratory effort is even, unlabored, Respiratory pattern is regular, symmetrical. GI: No signs and/or symptoms were reported involving the gastrointestinal system. : No signs and/or symptoms were reported regarding the genitourinary system. EENT: No signs and/or symptoms were reported regarding the EENT system. Derm: No signs and/or symptoms reported regarding the dermatologic system. Musculoskeletal: No signs and/or symptoms reported regarding the musculoskeletal system. Vital Signs: 20:30 BP 119 / 82; Pulse 87; Resp 20; Temp 97.1; Pulse Ox 99% on R/A; Weight 83.91 kg (R); ao Height 5 ft. 0 in. (152.40 cm) (R); Pain 8/10; 20:30 Body Mass Index 36.13 (83.91 kg, 152.40 cm) ao ED Course: 20:28 Patient arrived in ED. ah 20:30 [facility]-C [facility]. snw 20:30 Jose Armando Tavera MD is Attending Physician. snw 20:34 Shani Purvis, GERONIMO is Primary Nurse. ah 20:35 Triage completed. ao 20:40 Arm band placed on right wrist. Patient notified of wait time. ao 21:04 Patient has correct armband on for positive identification. Placed in gown. Bed in low ah position. Call light in reach. Side rails up X2. 22:02 No provider procedures requiring assistance completed. Patient did not have IV access ah during this emergency room visit. Administered Medications: No medications were administered Outcome: 21:28 Discharge ordered by . snw 22:02 Discharged to home ambulatory. ah 22:02 Condition: good 22:02 Discharge instructions given to patient, Instructed on discharge instructions, follow up and referral plans. Demonstrated understanding of instructions, follow-up care. 22:03 Patient left the ED. Signatures: Verito Santos FNP-C FNP-Lefty Zee RN RN ao Harris, Amy, RN RN
--- NOTE | 2019-11-04 21:30 | EDPHYS ---
Physician Documentation [facility] Name: Sidra Hodges Age: 44 yrs Sex: Female : 1975 Arrival Date: 11/04/2019 Time: 20:28 Bed 20 Private MD: ED Physician Jose Armando Tavera HPI: 11/03 20:46 This 44 yrs old Female presents to ER via EMS with complaints of seizure. snw 20:46 The patient presents after having a single isolated seizure, the episode(s) was snw witnessed, none. Seizure onset: the onset is not known. Context: the seizure(s) was witnessed. Historical: - Allergies: 20:39 NKA; ao - Home Meds: 20:39 divalproex 500 mg oral TbEC [Active]; Risperdal 3 mg oral tab [Active]; ao - PMHx: 20:39 ADD/ADHD; Anxiety; Bipolar disorder; Chronic pain; hemorrhoids; psychiatric; Seizures; ao - PSHx: 20:39 Unable to obtain; ao - Immunization history:: Adult Immunizations up to date. - Social history:: Smoking status: Patient denies any tobacco usage or history of. Patient/guardian denies using alcohol, street drugs. ROS: 20:45 Constitutional: Negative for fever, chills, and weight loss, Eyes: Negative for injury, snw pain, redness, and discharge, ENT: Negative for injury, pain, and discharge, Neck: Negative for injury, pain, and swelling, Cardiovascular: Negative for chest pain, palpitations, and edema, Respiratory: Negative for shortness of breath, cough, wheezing, and pleuritic chest pain, Abdomen/GI: Negative for abdominal pain, nausea, vomiting, diarrhea, and constipation, Back: Negative for injury and pain, : Negative for injury, bleeding, discharge, and swelling, MS/Extremity: Negative for injury and deformity, Skin: Negative for injury, rash, and discoloration, Neuro: Negative for headache, weakness, numbness, tingling, + seizure at home per report. Pt states she feels like she is going to have another seizure Psych: Negative for depression, anxiety, suicide ideation, homicidal ideation, and hallucinations. Exam: 20:43 Constitutional: This is a well developed, well nourished patient who is awake, alert, snw and in no acute distress. Head/Face: Normocephalic, atraumatic. Eyes: Pupils equal round and reactive to light, extra-ocular motions intact. Lids and lashes normal. Conjunctiva and sclera are non-icteric and not injected. Cornea within normal limits. Periorbital areas with no swelling, redness, or edema. ENT: Nares patent. No nasal discharge, no septal abnormalities noted. Tympanic membranes are normal and external auditory canals are clear. Oropharynx with no redness, swelling, or masses, exudates, or evidence of obstruction, uvula midline. Mucous membranes moist. Neck: Trachea midline, no thyromegaly or masses palpated, and no cervical lymphadenopathy. Supple, full range of motion without nuchal rigidity, or vertebral point tenderness. No Meningismus. Chest/axilla: Normal chest wall appearance and motion. Nontender with no deformity. No lesions are appreciated. Cardiovascular: Regular rate and rhythm with a normal S1 and S2. No gallops, murmurs, or rubs. Normal PMI, no JVD. No pulse deficits. Respiratory: Lungs have equal breath sounds bilaterally, clear to auscultation and percussion. No rales, rhonchi or wheezes noted. No increased work of breathing, no retractions or nasal flaring. Abdomen/GI: Soft, non-tender, with normal bowel sounds. No distension or tympany. No guarding or rebound. No evidence of tenderness throughout. Back: No spinal tenderness. No costovertebral tenderness. Full range of motion. Skin: Warm, dry with normal turgor. Normal color with no rashes, no lesions, and no evidence of cellulitis. MS/ Extremity: Pulses equal, no cyanosis. Neurovascular intact. Full, normal range of motion. Neuro: Awake and alert, GCS 15, oriented to person, place, time, and situation. Cranial nerves II-XII grossly intact. Motor strength 5/5 in all extremities. Sensory grossly intact. Cerebellar exam normal. Normal gait. 20:43 Psych: pt states she feels like she is going to have a seizure. Vital Signs: 20:30 BP 119 / 82; Pulse 87; Resp 20; Temp 97.1; Pulse Ox 99% on R/A; Weight 83.91 kg (R); ao Height 5 ft. 0 in. (152.40 cm) (R); Pain 8/10; 20:30 Body Mass Index 36.13 (83.91 kg, 152.40 cm) ao MDM: 20:35 Patient medically screened. snw 21:29 Data reviewed: vital signs, nurses notes. Data interpreted: Pulse oximetry: on room air snw is 99 %. Interpretation: normal. Counseling: I had a detailed discussion with the patient and/or guardian regarding: the historical points, exam findings, and any diagnostic results supporting the discharge/admit diagnosis, lab results, the need for outpatient follow up, to return to the emergency department if symptoms worsen or persist or if there are any questions or concerns that arise at home. Special discussion: Based on the history and exam findings, there is no indication for further emergent testing or inpatient evaluation. I discussed with the patient/guardian the need to see the primary care provider for further evaluation of the symptoms. 11/03 20:32 Order name: Urine Culture snw 11/03 20:32 Order name: Urine Microscopic Only; Complete Time: 21:02 snw 11/03 20:32 Order name: Urine Dipstick-Ancillary (obtain specimen); Complete Time: 22:02 snw 11/03 20:34 Order name: Valproic Acid (depakote); Complete Time: 21:27 snw 11/03 20:43 Order name: Urine Dipstick--Ancillary (enter results); Complete Time: 21:02 mw2 Administered Medications: No medications were administered Disposition: 11/04 06:31 Co-signature as Attending Physician, Jose Armando Tavera MD. 7 Disposition: 11/04/19 21:28 Discharged to Home. Impression: Person with feared health complaint in whom no diagnosis is made. - Condition is Stable. - Discharge Instructions: Fatigue. - Medication Reconciliation Form, Thank You Letter, Antibiotic Education, Prescription Opioid Use form. - Follow up: Emergency Department; When: As needed; Reason: Worsening of condition. Follow up: Private Physician; When: 2 - 3 days; Reason: Recheck today's complaints, Continuance of care, Re-evaluation by your physician. Signatures: Dispatcher [employer] EDVerito Palomino, BRIAN CROSS ROLLER-Delmarw Lefty Tucker RN RN ao Harris, Amy, RN RN ah Holmes, Maurice, MD MD [facility] Corrections: (The following items were deleted from the chart) 11/03 22:03 21:28 11/04/2019 21:28 Discharged to Home. Impression: Person with feared health ah complaint in whom no diagnosis is made. Condition is Stable. Forms are Medication Reconciliation Form, Thank You Letter, Antibiotic Education, Prescription Opioid Use. Follow up: Emergency Department; When: As needed; Reason: Worsening of condition. Follow up: Private Physician; When: 2 - 3 days; Reason: Recheck today's complaints, Continuance of care, Re-evaluation by your physician. snw
[2019-11-04 22:14] VITALS: BP 119/82; TEMP 97.1; O2SAT 99
== END 2019-11-04 22:03 | disposition home or self-care (01) ==
LOC: ER 20:20
DX: Z71.1 Person with feared health complaint in whom no diagnosis is made (principal); F31.9 Bipolar disorder, unspecified
CPT/HCPCS: 36415; 80164; 81003; 81015; 87086; 87088; 99283

== ENCOUNTER 2019-11-07 23:35 | Emergency (ER) | payer SELFPAY ==
--- OUTSIDE RECORDS SUMMARY | 2019-11-07 23:37 | XMS REPORT ---
:1975 Author Organization [facility] t Address [address] [place] [address] Care Team Providers Name Role Phone Favian [...] Clinicians Facility Department ID 2019-10-25 2019-10-25 [id number] 18:31:31 19:21:00 Dwaine Gonzalez [id number] [place] [id number] [place] [id number] 2019-08-13 2019-08-13 Emergency [facility] [id number] 13:30:00 14:36:00 Jerry Goznalez [id number] [place] [id number] [place] [id number] [id number] 2019-07-22 2019-07-22 Emergency Unknown, Attending TRAUMA [id number] 13:42:11 19:02:00 Lisa Morfin [facility] [id number] 2019-01-21 2019-01-21 Emergency [place], [facility] [id number] 18:38:01 19:59:00 Le Gonzalez [id number] [place] [id number] [place] [phone] [id number] Results Test Description Test Time Test Comments Results Result Comments Source Valproic Acid Level 2019-01-12 08:03:22 Test Item Value Reference Range Interpretation Comme nts Valproic Acid Level (test code = Valproic Acid Level) 57.6 ug/mL(g) 50.0-100.0 Hemoglobin [id number] 09:36:00 Test Item Value Reference Range Interpretation Comments Hemoglobin A1c (test code 5.0 % 4.8-5.9 No n Diabetic = Hemoglobin A1c) 4.8-5.9%Di abetic <7.0% CT Shoulder w/o Contrast [id number] 16:49:13Patient: BHUMIKA JONES Date/Time01/09/2019 16:14 CDTReason for [...] Adam FSigned (Electronic Signature): 01/09/2019 4:49 pmRPR [id number] 21:33:20 Test Item Value Reference Range Interpretation [...] Expiration Dt) XR Shoulder Complete 2+ Views [id number] 15:41:25Patient: BHUMIKA JONES Date/Time01/07/2019 15:25 CDTReason for [...] CSigned (Electronic Signature): 01/07/2019 3:41 pmThyroid Stimulating [id number] 03:07:04 Test Item Value Reference Range Interpretation Comments TSH (test code = TSH) 9.650 mIU/mL 0.270-4.200 H Lipid [id number] 03:07:03 Test Item Value Reference Range Interpretation Comments Cholesterol Total 199 mg/dL 0-200 RISK OF HE ART (test code = DISEASEPublishe d by Cholesterol Total) [place] [employer] [place] Optimal Borderl ine [...] LDL/HDL Ratio=L DL Calc/HDL Chol HCG Qualitative [id number] 02:33:13 Test Item Value Reference Range Interpretation Comments HCG, Serum Qual (test code = HCG, Negative Serum Qual) Lot # (test code = Lot #) [id number] Expiration Dt (test code = 2020-04-23 N Expiration Dt) Neg Control (test code = Neg Negative Control) Pos Control (test code = Pos Positive Control) Internal QC (test code = Internal Acceptable QC) Drugs of Abuse Urine [id number] 18:58:11 Test Item Value Reference Range Interpretation [...] (test code = Cannabinoid Screen Ur) Alcohol [id number] 18:47:34 Test Item Value Reference Range Interpretation Comments Ethanol Level (test <0.00 g/dL 0.00-0.01 Intoxica isabel 0.080 g/dL code = Ethanol or more Level) Ethanol Inst (test <0 N code = Ethanol Inst) Comprehensive Metabolic [id number] 18:47:33 Test Item Value Reference Range Interpretation [...] A/G 1.0 ratio N Ratio) Comprehensive Metabolic [id number] 18:47:33 Test Item Value Reference Range Interpretation [...] ag e have not been validated by th e MDRD study and should be interpreted wit h caution. eGFR R esult Interpretation: eGFR > or = 60 is in the Normal RangeeGF R < 60 may mean kid betzaida diseaseeGFR < 1 5 may mean kidney failure Rang es recommended by the National Kidney Foundation, http://nkdep.ni h.gov Comprehensive Metabolic [id number] 18:47:33 Test Item Value Reference Range Interpretation [...] ag e have not been validated by [facility] MDRD study and should be interpreted wit [...] ag e have not been validated by [facility] MDRD study and should be interpreted wit h caution. eGFR R esult Interpretation: eGFR > or = 60 is in the Normal RangeeGF R < 60 may mean kid betzaida diseaseeGFR < 1 5 may mean kidney failure Rang es recommended by the National Kidney Foundation, http://nkdep.ni h.gov Complete Blood Count with [id number] 18:15:23 Test Item Value Reference Range Interpretation [...] code = IPF) 0 % N Automated [id number] 18:15:23 Test Item Value Reference Range Interpretation Comments Neutro Auto (test code = Neutro 42.1 % 36.0-70.0 Auto) Lymph Auto (test code = Lymph Auto) 40.0 % 12.0-44.0 Taos Auto (test code = Taos Auto) 12.2 % 0.0-11.0 H Eos, Auto (test code = Eos, Auto) 4.9 % 0.0-7.0 Basophil Auto (test code = Basophil 0.6 % 0.0-2.0 Auto) Neutro Absolute (test code = Neutro 2.2 x10 1.6-7.4 Absolute) Lymph Absolute (test code = Lymph 2.06 x10 .50-4.60 Absolute) Taos Absolute (test code = Taos .63 x10 .00-1.20 Absolute) Eos Absolute (test code = Eos 0.25 x10 0.00-0.74 Absolute) Baso Absolute (test code = Baso 0.03 x10 0.00-0.21 Absolute) IG [id number] 18:15:23 Test Item Value Reference Range Interpretation Comments IG (test code = IG) 0.2 % 0.0-5.0 IG Abs (test code = IG Abs) 0 x10 N
[2019-11-08] MEDS ORDERED: IBUPROFEN 400 MG TAB ONE (00:34)
--- NOTE | 2019-11-08 01:01 | EDPHYS ---
Physician Documentation [facility] Name: Sidra Hodges Age: 44 yrs Sex: Female : 1975 Arrival Date: 11/07/2019 Time: 23:43 Bed 7 Private MD: JENELLE Physician Pascual Lundy HPI: 11/07 00:19 This 44 yrs old Female presents to ER via EMS with complaints of neck pain ry from fall 2 months ago. 00:19 The patient or guardian complains of decreased range of motion, pain. The symptoms are ry located on the right jaw. Onset: The symptoms/episode began/occurred 60 day(s) ago. Context: The problem was sustained at an unknown location. Associated signs and symptoms: The patient has no apparent associated signs or symptoms. The pain does not radiate. Modifying factors: The symptoms are alleviated by remaining still, the symptoms are aggravated by movement. Severity of symptoms: At their worst the symptoms were moderate, in the emergency department the symptoms are unchanged. The patient has not experienced similar symptoms in the past. The patient has experienced similar episodes in the past. 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 - Social history:: Smoking status: unknown. - Family history:: not pertinent. ROS: 11/07 00:19 Constitutional: Negative for fever, chills, and weight loss, Eyes: Negative for injury, ry pain, redness, and discharge, ENT: Negative for injury, pain, and discharge, Cardiovascular: Negative for chest pain, palpitations, and edema, Respiratory: Negative for shortness of breath, cough, wheezing, and pleuritic chest pain, Abdomen/GI: Negative for abdominal pain, nausea, vomiting, diarrhea, and constipation, Back: Negative for injury and pain, : Negative for injury, bleeding, discharge, and swelling, MS/Extremity: Negative for injury and deformity, Skin: Negative for injury, rash, and discoloration, Neuro: Negative for headache, weakness, numbness, tingling, and seizure, Psych: Negative for depression, anxiety, suicide ideation, homicidal ideation, and hallucinations, Allergy/Immunology: Negative for hives, rash, and allergies, Endocrine: Negative for neck swelling, polydipsia, polyuria, polyphagia, and marked weight changes, Hematologic/Lymphatic: Negative for swollen nodes, abnormal bleeding, and unusual bruising. Neck: Positive for pain with movement, pain at rest. Exam: 00:19 Constitutional: This is a well developed, well nourished patient who is awake, alert, ry and in no acute distress. Head/Face: Normocephalic, atraumatic. Eyes: Pupils equal round and reactive to light, extra-ocular motions intact. Lids and lashes normal. Conjunctiva and sclera are non-icteric and not injected. Cornea within normal limits. Periorbital areas with no swelling, redness, or edema. ENT: Nares patent. No nasal discharge, no septal abnormalities noted. Tympanic membranes are normal and external auditory canals are clear. Oropharynx with no redness, swelling, or masses, exudates, or evidence of obstruction, uvula midline. Mucous membranes moist. Chest/axilla: Normal chest wall appearance and motion. Nontender with no deformity. No lesions are appreciated. Cardiovascular: Regular rate and rhythm with a normal S1 and S2. No gallops, murmurs, or rubs. Normal PMI, no JVD. No pulse deficits. Respiratory: Lungs have equal breath sounds bilaterally, clear to auscultation and percussion. No rales, rhonchi or wheezes noted. No increased work of breathing, no retractions or nasal flaring. Abdomen/GI: Soft, non-tender, with normal bowel sounds. No distension or tympany. No guarding or rebound. No evidence of tenderness throughout. Back: No spinal tenderness. No costovertebral tenderness. Full range of motion. Skin: Warm, dry with normal turgor. Normal color with no rashes, no lesions, and no evidence of cellulitis. MS/ Extremity: Pulses equal, no cyanosis. Neurovascular intact. Full, normal range of motion. Neuro: Awake and alert, GCS 15, oriented to person, place, time, and situation. Cranial nerves II-XII grossly intact. Motor strength 5/5 in all extremities. Sensory grossly intact. Cerebellar exam normal. Normal gait. Psych: Awake, alert, with orientation to person, place and time. Behavior, mood, and affect are within normal limits. 00:19 Neck: External neck: is normal, C-spine: appears grossly normal, no acute changes, Thyroid: appears normal, no acute changes, Trachea: is midline with no obvious abnormalities, no acute changes, ROM/movement: pain, limited range of motion, Lymph nodes: no appreciated lymphadenopathy. Vital Signs: 11/06 23:51 BP 139 / 97; Pulse 79; Resp 18; Temp 96.9; Pulse Ox 100% on R/A; mg2 11/07 01:30 BP 130 / 78; Pulse 80; Resp 18; Temp 97; Pulse Ox 100% on R/A; mg2 MDM: 11/06 23:52 Patient medically screened. [facility] 11/07 00:23 Differential diagnosis: arthritis, Cervical Spondylosis cervical strain, Degenerative ry Disc Disease Neck Contusion Spondylosis torticollis. Data reviewed: vital signs, nurses notes, radiologic studies, plain films. Data interpreted: patient monitor: rate is 79 beats/min, Pulse oximetry: on room air is 100 %. Test interpretation: by ED physician or midlevel provider: plain radiologic studies. Counseling: I had a detailed discussion with the patient and/or guardian regarding: the historical points, exam findings, and any diagnostic results supporting the discharge/admit diagnosis, lab results, radiology results, the need for outpatient follow up, for definitive care, an inspector integrated circuits, a neurologist, a psychiatrist. Medication response: motrin. ED course: not suicidal , not homicidal, will fu. 00:59 ED course: pt alert and oriented, not suicidal. [facility] 11/07 00:23 Order name: C Spine Ap/Lat XRAY [facility] 11/07 00:20 Order name: Diet Regular; Complete Time: 00:20 [facility] Administered Medications: 00:33 Drug: Motrin 400 mg Route: PO; mg2 01:00 Follow up: Response: No adverse reaction mg2 Disposition: 11/08/19 00:59 Discharged to Home. Impression: Strain of muscle, fascia and tendon at neck level, Bipolar disorder. - Condition is Stable. - Discharge Instructions: Muscle Strain, Cervical Sprain, [id number]. - Prescriptions for Motrin IB 200 mg Oral Tablet - take 2 tablet by ORAL route every 6 hours As needed as needed with food; 30 tablet. - Medication Reconciliation Form, Thank You Letter, Antibiotic Education, Prescription Opioid Use form. - Follow up: Private Physician; When: 2 - 3 days; Reason: Recheck today's complaints, Continuance of care, Re-evaluation by your physician. - Problem is new. - Symptoms have improved. Signatures: Dispatcher [employer] EDPascual Rosas MD MD cha Gardose, Michele, RN RN mg2 Corrections: (The following items were deleted from the chart) 02:35 00:59 11/08/2019 00:59 Discharged to Home. Impression: Strain of muscle, fascia and mg2 tendon at neck level; Bipolar disorder. Condition is Stable. Discharge Instructions: Muscle Strain, Cervical Sprain, [id number]. Prescriptions for Motrin IB 200 mg Oral Tablet - take 2 tablet by ORAL route every 6 hours As needed as needed with food; 30 tablet. and Forms are Medication Reconciliation Form, Thank You Letter, Antibiotic Education, Prescription Opioid Use. Follow up: Private Physician; When: 2 - 3 days; Reason: Recheck today's complaints, Continuance of care, Re-evaluation by your physician. Problem is new. Symptoms have improved. ry
--- NOTE | 2019-11-08 01:01 | ER ---
Nurse's Notes [facility] Name: Sidra Hodges Age: 44 yrs Sex: Female : 1975 Arrival Date: 11/07/2019 Time: 23:43 Bed 7 Private MD: Diagnosis: Strain of muscle, fascia and tendon at neck level;Bipolar disorder Presentation: 11/06 23:51 Chief complaint: Patient states: i am having neck pain and i want something to eat. mg2 history of fall 2 months ago. brought my [facility]. Coronavirus screen: Proceed with normal triage. Patient denies a cough. Patient denies shortness of breath or difficulty breathing. Patient denies measured and/or subjective temperature greater than 100.4F prior to today's visit. Patient denies travel on a cruise ship or to a country the [facility] currently lists as an affected area. Patient denies contact with known and/or suspected case of COVID-19. Ebola Screen: No symptoms or risks identified at this time. Initial Sepsis Screen: Does the patient meet any 2 criteria? No. Patient's initial sepsis screen is negative. Does the patient have a suspected source of infection? No. Patient's initial sepsis screen is negative. Risk Assessment: Do you want to hurt yourself or someone else? Patient reports no desire to harm self or others. Onset of symptoms was November 07, 2019. 23:51 Method Of Arrival: EMS: [facility] 23:51 Acuity: CARMITA 4 mg2 CRITICAL CARE TRANSPORT NURSE: 11/07 00:09 lmp unknown mg2 Historical: - Allergies: 11/06 23:54 NKA; mg2 - PMHx: 23:54 ADD/ADHD; Anxiety; Bipolar disorder; Chronic pain; hemorrhoids; psychiatric; Seizures; mg2 - Immunization history:: Flu vaccine status is unknown. - Social history:: Smoking status: unknown. - Family history:: not pertinent. Screenin/17 00:09 Abuse screen: Denies threats or abuse. Denies injuries from another. Nutritional mg2 screening: No deficits noted. Tuberculosis screening: No symptoms or risk factors identified. Fall Risk None identified. Assessment: 00:08 General: Appears in no apparent distress. comfortable, Behavior is calm, cooperative. mg2 Pain: Complains of pain in neck. Neuro: Level of Consciousness is awake, alert, obeys commands, Oriented to person, place, time, situation. Cardiovascular: Capillary refill < 3 seconds Patient's skin is warm and dry. Respiratory: Airway is patent Respiratory effort is even, unlabored, Respiratory pattern is regular, symmetrical. GI: No signs and/or symptoms were reported involving the gastrointestinal system. : EENT: No signs and/or symptoms were reported regarding the EENT system. Derm: Skin is intact, is healthy with good turgor, Skin is pink, warm \T\ dry. normal. Musculoskeletal: Circulation, motion, and sensation intact. Capillary refill < 3 seconds. 00:09 Reassessment: i used electronic motor vehicle licence examiner to speak to the patient. mg2 01:29 Reassessment: patient for discharge. dc papers already signed by the patient. waiting mg2 for a cab home. Vital Signs: 11/06 23:51 BP 139 / 97; Pulse 79; Resp 18; Temp 96.9; Pulse Ox 100% on R/A; mg2 11/07 01:30 BP 130 / 78; Pulse 80; Resp 18; Temp 97; Pulse Ox 100% on R/A; mg2 ED Course: 11/06 23:43 Patient arrived in ED. tl1 23:51 Kojo Sarmiento, RN is Primary Nurse. mg2 23:51 Pascual Lundy MD is Attending Physician. ry 23:53 Triage completed. mg2 23:54 Arm band placed on. mg2 11/07 00:09 Patient has correct armband on for positive identification. mg2 00:09 No provider procedures requiring assistance completed. Patient did not have IV access mg2 during this emergency room visit. 00:58 C Spine Ap/Lat XRAY In Process Unspecified. EDMS Administered Medications: 00:33 Drug: Motrin 400 mg Route: PO; mg2 01:00 Follow up: Response: No adverse reaction mg2 Outcome: 00:59 Discharge ordered by . ry 01:30 Discharged to home ambulatory. mg2 01:30 Condition: stable 01:30 Discharge instructions given to patient, Instructed on discharge instructions, follow up and referral plans. medication usage, Demonstrated understanding of instructions, follow-up care, medications, Prescriptions given X 1. 02:35 Patient left the ED. mg2 Signatures: Dispatcher [employer] EDMS Pascual Lundy MD MD cha Lasagna, Tonya RN RN tl1 Kojo Sarmiento RN RN mg2
[2019-11-08 02:39] VITALS: O2SAT 100
[2019-11-08 02:40] VITALS: BP 130/78; TEMP 97
--- NOTE | 2019-11-08 09:52 | RAD REPORT ---
EXAM DESCRIPTION: RAD - C Spine Ap/Lat - 11/08/2019 12:58 am CLINICAL HISTORY: Neck pain FINDINGS: Bones are osteoporotic. Minimal anterior subluxation C4 on C5 and C5 on C6 No prevertebral soft tissue swelling No fracture or dislocation seen. If patient continues have symptoms to suggest ligamentous or spinal cord pathology MRI would be kendall mmended
== END 2019-11-08 02:35 | disposition home or self-care (01) ==
LOC: ER 23:35
DX: S16.1XXA Strain of muscle, fascia and tendon at neck level, initial encounter (principal); F31.9 Bipolar disorder, unspecified; W19.XXXA Unspecified fall, initial encounter; Y93.9 Activity, unspecified; Y92.9 Unspecified place or not applicable
CPT/HCPCS: 72040; 99284

== ENCOUNTER 2019-11-11 17:07 | Emergency (ER) | payer SELFPAY ==
--- OUTSIDE RECORDS SUMMARY | 2019-11-11 17:25 | XMS REPORT ---
:1975 Author Organization [facility] t Address [address] [place] [address] Care Team Providers Name Role Phone Favian [...] Clinicians Facility Department ID 2019-10-25 2019-10-25 [id number] 18:31:31 19:21:00 Dwaine Gonzalez [id number] [place] [id number] [place] [id number] 2019-08-13 2019-08-13 [facility] [id number] 13:30:00 14:36:00 Jerry Gonzalez [id number] [place] [id number] [place] [id number] 2019-07-22 2019-07-22 Emergency Unknown, Attending TRAUMA [id number] 13:42:11 19:02:00 Lisa Morfin [facility] [id number] [id number] 2019-01-21 2019-01-21 Emergency Drever, [facility] [id number] 18:38:01 19:59:00 Le Gonzalez [id number] [place] [id number] [place] [id number] Results Test Description Test Time Test Comments Results Result Comments Source Valproic Acid Level 2019-01-12 08:03:22 Test Item Value Reference Range Interpretation Comme nts Valproic Acid Level (test code = Valproic Acid Level) 57.6 ug/mL(g) 50.0-100.0 Hemoglobin [id number] 09:36:00 Test Item Value Reference Range Interpretation Comments Hemoglobin A1c (test code 5.0 % 4.8-5.9 No n Diabetic = Hemoglobin A1c) 4.8-5.9%Di abetic <7.0% CT Shoulder w/o Contrast [id number] 16:49:13Patient: BHUMIKA JONES Date/Time01/09/2019 16:14 CDTReason for [...] Adam FSigned (Electronic Signature): 01/09/2019 4:49 pmRPR [id number] 21:33:20 Test Item Value Reference Range Interpretation [...] Expiration Dt) XR Shoulder Complete 2+ Views [id number] 15:41:25Patient: BHUMIKA JONES Date/Time01/07/2019 15:25 CDTReason for [...] CSdelaney (Electronic Signature): 01/07/2019 3:41 pmThyroid Stimulating [id number] 03:07:04 Test Item Value Reference Range Interpretation Comments TSH (test code = TSH) 9.650 mIU/mL 0.270-4.200 H Lipid [id number] 03:07:03 Test Item Value Reference Range Interpretation Comments Cholesterol Total 199 mg/dL 0-200 RISK OF HE ART (test code = DISEASEPublishe d by Cholesterol Total) [employer] [place] Optimal Borderl ine [...] LDL/HDL Ratio=L DL Calc/HDL Chol HCG Qualitative [id number] 02:33:13 Test Item Value Reference Range Interpretation Comments HCG, Serum Qual (test code = HCG, Negative Serum Qual) Lot # (test code = Lot #) [id number] Expiration Dt (test code = 2020-04-23 N Expiration Dt) Neg Control (test code = Neg Negative Control) Pos Control (test code = Pos Positive Control) Internal QC (test code = Internal Acceptable QC) Drugs of Abuse Urine [id number] 18:58:11 Test Item Value Reference Range Interpretation [...] (test code = Cannabinoid Screen Ur) Alcohol [id number] 18:47:34 Test Item Value Reference Range Interpretation Comments Ethanol Level (test <0.00 g/dL 0.00-0.01 Intoxica isabel 0.080 g/dL code = Ethanol or more Level) Ethanol Inst (test <0 N code = Ethanol Inst) Comprehensive Metabolic [id number] 18:47:33 Test Item Value Reference Range Interpretation [...] A/G 1.0 ratio N Ratio) Comprehensive Metabolic [id number] 18:47:33 Test Item Value Reference Range Interpretation [...] ag e have not been validated by [facility] MDRD study and should be interpreted wit h caution. eGFR R esult Interpretation: eGFR > or = 60 is in the Normal RangeeGF R < 60 may mean kid betzaida diseaseeGFR < 1 5 may mean kidney failure Rang es recommended by the National Kidney Foundation, http://nkdep.ni h.gov Comprehensive Metabolic [id number] 18:47:33 Test Item Value Reference Range Interpretation [...] ag e have not been validated by [facility] MDRD study and should be interpreted wit [...] ag e have not been validated by [facility] MDRD study and should be interpreted wit h caution. eGFR R esult Interpretation: eGFR > or = 60 is in the Normal RangeeGF R < 60 may mean kid betzaida diseaseeGFR < 1 5 may mean kidney failure Rang es recommended by the National Kidney Foundation, http://nkdep.ni h.gov Complete Blood Count with [id number] 18:15:23 Test Item Value Reference Range Interpretation [...] code = IPF) 0 % N Automated [id number] 18:15:23 Test Item Value Reference Range Interpretation Comments Neutro Auto (test code = Neutro 42.1 % 36.0-70.0 Auto) Lymph Auto (test code = Lymph Auto) 40.0 % 12.0-44.0 [place] Auto (test code = [place] Auto) 12.2 % 0.0-11.0 H Eos, Auto (test code = Eos, Auto) 4.9 % 0.0-7.0 Basophil Auto (test code = Basophil 0.6 % 0.0-2.0 Auto) Neutro Absolute (test code = Neutro 2.2 x10 1.6-7.4 Absolute) Lymph Absolute (test code = Lymph 2.06 x10 .50-4.60 Absolute) [place] Absolute (test code = [place] .63 x10 .00-1.20 Absolute) Eos Absolute (test code = Eos 0.25 x10 0.00-0.74 Absolute) Baso Absolute (test code = Baso 0.03 x10 0.00-0.21 Absolute) IG [id number] 18:15:23 Test Item Value Reference Range Interpretation Comments IG (test code = IG) 0.2 % 0.0-5.0 IG Abs (test code = IG Abs) 0 x10 N
--- NOTE | 2019-11-11 17:28 | ER ---
Nurse's Notes [facility] Name: Sidra Hodges Age: 44 yrs Sex: Female : 1975 Arrival Date: 11/11/2019 Time: 17:08 Bed 25 Private MD: Diagnosis: Presentation: 11/10 17:10 Chief complaint: EMS states: was picked up by DALE MCNAIR at [facility], pt then acted like she iw was going to [place] and bit her tongue. Coronavirus screen: Proceed with normal triage. Patient denies a cough. Patient denies shortness of breath or difficulty breathing. Patient denies measured and/or subjective temperature greater than 100.4F prior to today's visit. Patient denies travel on a cruise ship or to a country the [facility] currently lists as an affected area. Patient denies contact with known and/or suspected case of COVID-19. Ebola Screen: Patient negative for fever greater than or equal to 101.5 degrees Fahrenheit, and additional compatible Ebola Virus Disease symptoms Patient denies exposure to infectious person. Patient denies travel to an Ebola-affected area in the 21 days before illness onset. No symptoms or risks identified at this time. Initial Sepsis Screen: Does the patient meet any 2 criteria? No. Patient's initial sepsis screen is negative. Does the patient have a suspected source of infection? No. Patient's initial sepsis screen is negative. Risk Assessment: Do you want to hurt yourself or someone else? Patient reports no desire to harm self or others. Onset of symptoms was November 11, 2019. 17:10 Method Of Arrival: EMS: [facility] iw 17:10 Acuity: CARMITA 4 iw Historical: - Allergies: 17:27 NKA; iw - PMHx: 17:27 Anxiety; Bipolar disorder; Chronic pain; hemorrhoids; psychiatric; Seizures; iw - Immunization history:: Adult Immunizations unknown. - Social history:: Smoking status: unknown. Assessment: 17:05 Reassessment: pt not in ER room 25. iw 17:25 Reassessment: pt seen to be walking out of dept, stopped pt and asked her if she wanted iw to see a doctor, pt states no, pt observed walking through ER parking lot. ED Course: 17:08 Patient arrived in ED. iw 17:10 Laila Foreman, RN is Primary Nurse. iw 17:10 Arm band placed on. iw 17:14 Triage completed. iw Administered Medications: No medications were administered Outcome: 17:27 Eloped from patient exam room, before seeing physician iw 17:28 Patient left the ED. iw Signatures: Laila Foreman RN RN iw
== END 2019-11-11 17:28 | disposition left against medical advice (07) ==
LOC: ER 17:07
DX: Z53.21 Procedure and treatment not carried out due to patient leaving prior to being seen by health care provider (principal)
CPT/HCPCS: 99282

== ENCOUNTER 2019-12-01 00:04 | Emergency (ER) | payer SELFPAY ==
--- OUTSIDE RECORDS SUMMARY | 2019-12-01 00:09 | XMS REPORT | Continuity of Care Document ---
:1975 Author Organization [facility] t Address [address] [place] [address] Care Team Providers Name Role Phone Favian [...] Clinicians Facility Department ID 2019-10-25 2019-10-25 Emergency [place] [id number] 18:31:31 19:21:00 Dwaine Gonzalez [id number] [place] [id number] [place] [id number] 2019-08-13 2019-08-13 [facility] [id number] 13:30:00 14:36:00 Jerry Gonzalez [id number] [place] [id number] [place] [id number] 2019-07-22 2019-07-22 Emergency Unknown, Attending TRAUMA [id number] 13:42:11 19:02:00 Lisa Morfin [facility] [id number] [id number] 2019-01-21 2019-01-21 Emergency Drever, [facility] [id number] 18:38:01 19:59:00 Le Gonzalez [id number] [place] [id number] [place] [id number] Results Test Description Test Time Test Comments Results Result Comments Source Valproic Acid Level 2019-01-12 08:03:22 Test Item Value Reference Range Interpretation Comme nts Valproic Acid Level (test code = Valproic Acid Level) 57.6 ug/mL(g) 50.0-100.0 Hemoglobin [id number] 09:36:00 Test Item Value Reference Range Interpretation Comments Hemoglobin A1c (test code 5.0 % 4.8-5.9 No n Diabetic = Hemoglobin A1c) 4.8-5.9%Di abetic <7.0% CT Shoulder w/o Contrast [id number] 16:49:13Patient: BHUMIKA JONES Date/Time01/09/2019 16:14 CDTReason for [...] Adam FSigned (Electronic Signature): 01/09/2019 4:49 pmRPR [id number] 21:33:20 Test Item Value Reference Range Interpretation [...] Expiration Dt) XR Shoulder Complete 2+ Views [id number] 15:41:25Patient: BHUMIKA JONES Date/Time01/07/2019 15:25 CDTReason for [...] CSigned (Electronic Signature): 01/07/2019 3:41 pmThyroid Stimulating [id number] 03:07:04 Test Item Value Reference Range Interpretation Comments TSH (test code = TSH) 9.650 mIU/mL 0.270-4.200 H Lipid [id number] 03:07:03 Test Item Value Reference Range Interpretation Comments Cholesterol Total 199 mg/dL 0-200 RISK OF HE ART (test code = DISEASEPublishe d by Cholesterol Total) [place] Heart Association [place] Optimal Borderl ine [...] LDL/HDL Ratio=L DL Calc/HDL Chol HCG Qualitative [id number] 02:33:13 Test Item Value Reference Range Interpretation Comments HCG, Serum Qual (test code = HCG, Negative Serum Qual) Lot # (test code = Lot #) [id number] N Expiration Dt (test code = 2020-04-23 N Expiration Dt) Neg Control (test code = Neg Negative Control) Pos Control (test code = Pos Positive Control) Internal QC (test code = Internal Acceptable QC) Drugs of Abuse Urine [id number] 18:58:11 Test Item Value Reference Range Interpretation [...] (test code = Cannabinoid Screen Ur) Alcohol [id number] 18:47:34 Test Item Value Reference Range Interpretation Comments Ethanol Level (test <0.00 g/dL 0.00-0.01 Intoxica isabel 0.080 g/dL code = Ethanol or more Level) Ethanol Inst (test <0 N code = Ethanol Inst) Comprehensive Metabolic [id number] 18:47:33 Test Item Value Reference Range Interpretation [...] A/G 1.0 ratio N Ratio) Comprehensive Metabolic [id number] 18:47:33 Test Item Value Reference Range Interpretation [...] National Kidney Foundation, http://nkdep.ni h.gov Comprehensive Metabolic [id number] 18:47:33 Test Item Value Reference Range Interpretation [...] ag e have not been validated by [facility] MDRD study and should be interpreted wit [...] ag e have not been validated by [facility] MDRD study and should be interpreted wit h caution. eGFR R esult Interpretation: eGFR > or = 60 is in the Normal RangeeGF R < 60 may mean kid betzaida diseaseeGFR < 1 5 may mean kidney failure Rang es recommended by the National Kidney Foundation, http://nkdep.ni h.gov Complete Blood Count with [id number] 18:15:23 Test Item Value Reference Range Interpretation [...] code = IPF) 0 % N Automated [id number] 18:15:23 Test Item Value Reference Range Interpretation Comments Neutro Auto (test code = Neutro 42.1 % 36.0-70.0 Auto) Lymph Auto (test code = Lymph Auto) 40.0 % 12.0-44.0 [place] Auto (test code = [place] Auto) 12.2 % 0.0-11.0 H Eos, Auto (test code = Eos, Auto) 4.9 % 0.0-7.0 Basophil Auto (test code = Basophil 0.6 % 0.0-2.0 Auto) Neutro Absolute (test code = Neutro 2.2 x10 1.6-7.4 Absolute) Lymph Absolute (test code = Lymph 2.06 x10 .50-4.60 Absolute) [place] Absolute (test code = [place] .63 x10 .00-1.20 Absolute) Eos Absolute (test code = Eos 0.25 x10 0.00-0.74 Absolute) Baso Absolute (test code = Baso 0.03 x10 0.00-0.21 Absolute) IG [id number] 18:15:23 Test Item Value Reference Range Interpretation Comments IG (test code = IG) 0.2 % 0.0-5.0 IG Abs (test code = IG Abs) 0 x10 N
--- NOTE | 2019-12-01 01:23 | EDPHYS ---
Physician Documentation [facility] Name: Sidra Hodges Age: 44 yrs Sex: Female : 1975 Arrival Date: 12/01/2019 Time: 00:10 Bed 18 Private MD: ED Physician Jose Armando Tavera HPI: 11/30 01:03 This 44 yrs old Female presents to ER via EMS with complaints of Seizure. mh7 01:03 The patient presents after having a possible seizure episode, no tonic-clonic activity mh7 was appreciated, no post-ictal period is described. Character of seizure(s): Loss of consciousness: it is not known if the patient experienced loss of consciousness, Motor activity: the motor activity is unknown, Incontinence: none, Apnea: the patient did not experience apnea, Circulation: the patient did not experience evidence of pulse disturbance, Eye movements: are unknown. Seizure onset: today. Context: the seizure(s) was witnessed, by no one, occurred at home, occurred while the patient was lying down, Contributing factors: States seizure due to being scared to home by herself. Seizure Hx: Original onset: longstanding, Cause: epilepsy, Last seizure: The patient's last seizure "not sure", Usual frequency: irregular frequency, Seizure medications: valproic acid. Associated injury: The patient did not suffer any apparent associated injury. EMS care: none. Current symptoms: Currently, the patient is not experiencing any symptoms, the patient feels back to baseline. 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 - Social history:: Smoking status: unknown. ROS: 01:03 Constitutional: Negative for fever, chills, and weight loss, Eyes: Negative for injury, mh7 pain, redness, and discharge, ENT: Negative for injury, pain, and discharge, Neck: Negative for injury, pain, and swelling, Cardiovascular: Negative for chest pain, palpitations, and edema. 01:06 Respiratory: Negative for shortness of breath, cough, wheezing, and pleuritic chest mh7 pain, Abdomen/GI: Negative for abdominal pain, nausea, vomiting, diarrhea, and constipation, Back: Negative for injury and pain, : Negative for injury, bleeding, discharge, and swelling, MS/Extremity: Negative for injury and deformity, Skin: Negative for injury, rash, and discoloration, Psych: Negative for depression, anxiety, suicide ideation, homicidal ideation, and hallucinations, Allergy/Immunology: Negative for hives, rash, and allergies, Endocrine: Negative for neck swelling, polydipsia, polyuria, polyphagia, and marked weight changes, Hematologic/Lymphatic: Negative for swollen nodes, abnormal bleeding, and unusual bruising. Exam: 01:06 Constitutional: This is a well developed, well nourished patient who is awake, alert, mh7 and in no acute distress. Head/Face: Normocephalic, atraumatic. Eyes: Pupils equal round and reactive to light, extra-ocular motions intact. Lids and lashes normal. Conjunctiva and sclera are non-icteric and not injected. Cornea within normal limits. Periorbital areas with no swelling, redness, or edema. ENT: Nares patent. No nasal discharge, no septal abnormalities noted. Tympanic membranes are normal and external auditory canals are clear. Oropharynx with no redness, swelling, or masses, exudates, or evidence of obstruction, uvula midline. Mucous membranes moist. Neck: Trachea midline, no thyromegaly or masses palpated, and no cervical lymphadenopathy. Supple, full range of motion without nuchal rigidity, or vertebral point tenderness. No Meningismus. Chest/axilla: Normal chest wall appearance and motion. Nontender with no deformity. No lesions are appreciated. Cardiovascular: Regular rate and rhythm with a normal S1 and S2. No gallops, murmurs, or rubs. Normal PMI, no JVD. No pulse deficits. Respiratory: Lungs have equal breath sounds bilaterally, clear to auscultation and percussion. No rales, rhonchi or wheezes noted. No increased work of breathing, no retractions or nasal flaring. Abdomen/GI: Soft, non-tender, with normal bowel sounds. No distension or tympany. No guarding or rebound. No evidence of tenderness throughout. Skin: Warm, dry with normal turgor. Normal color with no rashes, no lesions, and no evidence of cellulitis. Neuro: Awake and alert, GCS 15, oriented to person, place, time, and situation. Cranial nerves II-XII grossly intact. Motor strength 5/5 in all extremities. Sensory grossly intact. Cerebellar exam normal. Normal gait. Psych: Awake, alert, with orientation to person, place and time. Behavior, mood, and affect are within normal limits. Vital Signs: 00:10 BP 121 / 97; Pulse 85; Resp 18; Temp 98.6; Pulse Ox 97% on R/A; mg2 01:46 BP 120 / 78; Pulse 80; Resp 18; Pulse Ox 100% on R/A; mg2 MDM: 00:59 Patient medically screened. [facility] 01:20 Differential diagnosis: seizure, pseudoseizure, anxiety. Data reviewed: vital signs, [facility] nurses notes, EMS record. 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 Interpretation: normal. Counseling: I had a detailed discussion with the patient and/or guardian regarding: the historical points, exam findings, and any diagnostic results supporting the discharge/admit diagnosis, the need for outpatient follow up, to return to the emergency department if symptoms worsen or persist or if there are any questions or concerns that arise at home. Administered Medications: No medications were administered Disposition: 12/01/19 01:22 Discharged to Home. Impression: Seizure. - Condition is Stable. - Discharge Instructions: Seizure, Adult, Futq-nw-[id number]. - Medication Reconciliation Form, Thank You Letter, Antibiotic Education, Prescription Opioid Use form. - Follow up: Private Physician; When: 1 - 2 days; Reason: Worsening of condition, Recheck today's complaints, Re-evaluation by your physician. - Problem is chronic. - Symptoms are resolved. Signatures: Kojo Sarmiento RN RN [facility] Jose Armando Tavera MD MD [facility] Corrections: (The following items were deleted from the chart) 01:47 01:22 12/01/2019 01:22 Discharged to Home. Impression: Seizure. Condition is Stable. mg2 Forms are Medication Reconciliation Form, Thank You Letter, Antibiotic Education, Prescription Opioid Use. Follow up: Private Physician; When: 1 - 2 days; Reason: Worsening of condition, Recheck today's complaints, Re-evaluation by your physician. Problem is chronic. Symptoms are resolved. mh7
--- NOTE | 2019-12-01 01:23 | ER ---
Nurse's Notes [facility] Name: Sidra Hodges Age: 44 yrs Sex: Female : 1975 Arrival Date: 12/01/2019 Time: 00:10 Bed 18 Private MD: Diagnosis: Seizure Presentation: 11/30 00:10 Chief complaint: EMS states: was called out for seizure episode today. not post-ictal mg2 on scene. she has a wound on her right index finger. Coronavirus screen: Proceed with normal triage. Patient denies a cough. Patient denies shortness of breath or difficulty breathing. Patient denies measured and/or subjective temperature greater than 100.4F prior to today's visit. Patient denies travel on a cruise ship or to a country the [facility] currently lists as an affected area. Patient denies contact with known and/or suspected case of COVID-19. Ebola Screen: No symptoms or risks identified at this time. Initial Sepsis Screen: Does the patient meet any 2 criteria? No. Patient's initial sepsis screen is negative. Does the patient have a suspected source of infection? No. Patient's initial sepsis screen is negative. Risk Assessment: Do you want to hurt yourself or someone else? Patient reports no desire to harm self or others. Onset of symptoms was November 30, 2019. 00:10 Method Of Arrival: EMS: [facility] mg2 00:10 Acuity: CARMITA 4 mg2 Triage Assessment: 00:26 General: Appears in no apparent distress. comfortable, Behavior is calm, cooperative. mg2 Pain: Denies pain. EENT: No signs and/or symptoms were reported regarding the EENT system. Neuro:. Cardiovascular: Capillary refill < 3 seconds Patient's skin is warm and dry. Respiratory: Airway is patent Respiratory effort is even, unlabored, Respiratory pattern is regular, symmetrical. GI: No signs and/or symptoms were reported involving the gastrointestinal system. : No signs and/or symptoms were reported regarding the genitourinary system. Derm: Skin is intact, is healthy with good turgor, Skin is pink, warm \T\ dry. normal. Musculoskeletal: Circulation, motion, and sensation intact. Capillary refill < 3 seconds. 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 - Social history:: Smoking status: unknown. Screenin:27 Abuse screen: Denies threats or abuse. Denies injuries from another. Nutritional mg2 screening: No deficits noted. Tuberculosis screening: No symptoms or risk factors identified. Fall Risk Secondary diagnosis (15 points) seizures. Assessment: 00:27 General: see triage assessment. mg2 01:00 Reassessment: Pt reports she is afraid to stay at home by herself, reports she was ea living with her sister and got in a fight with her and moved out. Reports she went to her home and was staying by herself. Pt reports she was afraid of being alone at home, sister was contacted, reports she is unable to pick pt up at this time but if she got a ride to her house she would be able to take care of her. Vital Signs: 00:10 BP 121 / 97; Pulse 85; Resp 18; Temp 98.6; Pulse Ox 97% on R/A; mg2 01:46 BP 120 / 78; Pulse 80; Resp 18; Pulse Ox 100% on R/A; mg2 ED Course: 00:10 Patient arrived in ED. mg2 00:12 Jose Armando aTvera MD is Attending Physician. mh7 00:20 Kojo Sarmiento RN is Primary Nurse. mg2 00:24 Triage completed. mg2 00:24 Arm band placed on. mg2 00:28 Patient has correct armband on for positive identification. mg2 00:29 No provider procedures requiring assistance completed. mg2 01:46 Patient did not have IV access during this emergency room visit. mg2 Administered Medications: No medications were administered Outcome: 01:22 Discharge ordered by . 7 01:46 Discharged to home ambulatory. mg2 01:46 Condition: stable 01:46 Discharge instructions given to patient, Instructed on discharge instructions, follow up and referral plans. Demonstrated understanding of instructions, follow-up care. 01:47 Patient left the ED. mg2 Signatures: May, Kesha, RN RN ea [place]ose, Kojo, RN RN mg2 Tavera, Jose Armando, MD MD mh7
[2019-12-01 01:59] VITALS: BP 120/78; TEMP 98.6; O2SAT 100
== END 2019-12-01 01:47 | disposition home or self-care (01) ==
LOC: ER 00:04
DX: G40.909 Epilepsy, unspecified, not intractable, without status epilepticus (principal); F31.9 Bipolar disorder, unspecified; F90.9 Attention-deficit hyperactivity disorder, unspecified type
CPT/HCPCS: 99283

== ENCOUNTER 2019-12-16 13:06 | Emergency (ER) | payer SELFPAY ==
--- NOTE | 2019-12-16 14:54 | RAD REPORT ---
EXAM DESCRIPTION: RAD - C Spine Ap/Lat - 12/16/2019 2:17 pm CLINICAL HISTORY: fall, neck pain COMPARISON: C Spine Ap/Lat dated 11/08/2019; C Spine Ap/Lat dated 07/26/2016 FINDINGS: Cervical bodies are normal in height and alignment. The minimal C4 and C5 subluxation seen on the October examination are not evident on this current study. No fracture or acute bony process seen . No disc space narrowing. Anterior endplate spurring changes seen C4-C6. This matches comparison. There is no prevertebral soft tissue thickening or other suspicious soft tissue finding. IMPRESSION: No acute or suspicious finding. No worrisome change from prior imaging.
--- NOTE | 2019-12-16 15:07 | ER ---
Nurse's Notes [facility] Name: Sidra Hodges Age: 44 yrs Sex: Female : 1975 Arrival Date: 12/16/2019 Time: 13:09 Bed 16 Private MD: Diagnosis: Abrasion of right forearm;Contusion of unspecified part of neck Presentation: 12/15 13:10 Chief complaint: EMS states: PT STATES THAT SHE HAD A PANIC ATTACK. Coronavirus screen: Proceed with normal triage. Ebola Screen: No symptoms or risks identified at this time. Initial Sepsis Screen: Does the patient meet any 2 criteria? No. Patient's initial sepsis screen is negative. Does the patient have a suspected source of infection? No. Patient's initial sepsis screen is negative. Risk Assessment: Do you want to hurt yourself or someone else? Patient reports no desire to harm self or others. Onset of symptoms was December 16, 2019. 13:10 Method Of Arrival: EMS: [facility] 13:10 Acuity: CARMITA 4 Historical: - Allergies: 13:22 NKA; - Home Meds: 13:22 divalproex 500 mg Oral TbEC [Active]; Risperdal 3 mg Oral tab [Active]; - PMHx: 13:22 ADD/ADHD; Anxiety; Bipolar disorder; Chronic pain; hemorrhoids; psychiatric; Seizures; - Immunization history:: Adult Immunizations unknown. - Social history:: Smoking status: . - Family history:: not pertinent. - Hospitalizations: : No recent hospitalization is reported. Screenin:00 Abuse screen: Denies threats or abuse. Nutritional screening: No deficits noted. Tuberculosis screening: No symptoms or risk factors identified. Fall Risk None identified. Assessment: 13:25 General: Appears in no apparent distress. Behavior is calm, cooperative, appropriate for age. Pain: Denies pain. Neuro: Level of Consciousness is awake, alert, obeys commands, Oriented to person, place, time. Cardiovascular: Heart tones S1 S2 present Capillary refill < 3 seconds Patient's skin is warm and dry. Rhythm is sinus rhythm. Respiratory: Airway is patent Respiratory effort is even, unlabored, Respiratory pattern is regular, symmetrical. GI:. Derm: Skin is intact, is healthy with good turgor, Skin temperature is warm. 14:08 Reassessment: xray in room at this time. 15:19 Reassessment: Pt discharged with translation line and charge nurse. Pt voiced understanding. Vital Signs: 13:10 BP 138 / 70; Pulse 67; Resp 17; Temp 97.5; Pulse Ox 100% ; ah ED Course: 13:09 Patient arrived in ED. 13:10 Shani Purvis, RN is Primary Nurse. 13:11 Triage completed. 13:12 Yong Banks MD is Attending Physician. rn 13:30 Patient notified of wait time. 14:00 Patient has correct armband on for positive identification. Bed in low position. Call light in reach. Side rails up X 1. Pulse ox on. NIBP on. 14:12 XRAY C Spine Ap/lat In Process Unspecified. EDIA 15:19 No provider procedures requiring assistance completed. Patient did not have IV access during this emergency room visit. Administered Medications: No medications were administered Outcome: 15:06 Discharge ordered by . rn 15:18 Discharged to home ambulatory. 15:18 Condition: good 15:18 Discharge instructions given to patient, Instructed on discharge instructions, follow up and referral plans. Demonstrated understanding of instructions, follow-up care. 15:21 Patient left the ED. Signatures: Dispatcher [employer] EDIA Yong Banks MD MD rn Harris, Amy, RN RN
--- NOTE | 2019-12-16 15:07 | EDPHYS ---
Physician Documentation [facility] Name: Sidra Hodges Age: 44 yrs Sex: Female : 1975 Arrival Date: 12/16/2019 Time: 13:09 Bed 16 Private MD: ED Physician Yong Banks HPI: 12/15 13:39 This 44 yrs old Female presents to ER via EMS with complaints of fall, neck rn pain, anxiety. 13:39 Details of fall: The patient fell from an upright position, while standing. Onset: The rn symptoms/episode began/occurred this morning. Associated injuries: The patient sustained neck injury, right elbow. Severity of symptoms: At their worst the symptoms were mild, in the emergency department the symptoms are unchanged. The patient has not experienced similar symptoms in the past. Reports has had several "attacks" today, reports palpitations/anxiety/dizziness during episodes, fell today, hit neck and right forearm/elbow on ground, no LOC. Reports left neck hurts especially with movement or palpation, right elbow is mild pain with scrape but able to move it and does not feel broken. Otherwise has been feeling ok. . Historical: - Allergies: 13:22 NKA; - Home Meds: 13:22 divalproex 500 mg Oral TbEC [Active]; Risperdal 3 mg Oral tab [Active]; - PMHx: 13:22 ADD/ADHD; Anxiety; Bipolar disorder; Chronic pain; hemorrhoids; psychiatric; Seizures; ah - Immunization history:: Adult Immunizations unknown. - Social history:: Smoking status: . - Family history:: not pertinent. - Hospitalizations: : No recent hospitalization is reported. ROS: 15:03 Constitutional: Negative for fever, chills, and weight loss, Eyes: Negative for injury, rn pain, redness, and discharge, Neck: + neck pain Cardiovascular: Negative for chest pain, and edema, Respiratory: Negative for shortness of breath, cough, wheezing, and pleuritic chest pain, Abdomen/GI: Negative for abdominal pain, nausea, vomiting, diarrhea, and constipation, MS/Extremity: Negative for injury and deformity, Skin: + abrasion right forearm and elbow Neuro: Negative for headache, weakness, numbness, tingling, and seizure. Exam: 15:03 ECG was reviewed by the Attending Physician. rn 15:03 Constitutional: This is a well developed, well nourished patient who is awake, alert, rn and in no acute distress. Head/Face: Normocephalic, atraumatic. Neck: Trachea midline, no crepitus, no bony tenderness Cardiovascular: Regular rate and rhythm. No pulse deficits. Respiratory: No increased work of breathing, no retractions or nasal flaring. Abdomen/GI: soft, non-tender Back: No spinal tenderness. No costovertebral tenderness. Full range of motion. Skin: + abrasion to right arm, just distal to elbow, no laceration MS/ Extremity: Pulses equal, no cyanosis. Neurovascular intact. Full, normal range of motion. Equal circumference. Neuro: Awake and alert, GCS 15, oriented to person, place, time, and situation. Cranial nerves II-XII grossly intact. Motor strength 5/5 in all extremities. Sensory grossly intact. Cerebellar exam normal. Normal gait. Vital Signs: 13:10 BP 138 / 70; Pulse 67; Resp 17; Temp 97.5; Pulse Ox 100% ; ah MDM: 13:12 Patient medically screened. rn 15:05 Differential diagnosis: abrasion, contusion, sprain. Data reviewed: vital signs, nurses rn notes, EKG, radiologic studies, plain films, and as a result, I will discharge patient. Counseling: I had a detailed discussion with the patient and/or guardian regarding: the historical points, exam findings, and any diagnostic results supporting the discharge/admit diagnosis, radiology results, the need for outpatient follow up, to return to the emergency department if symptoms worsen or persist or if there are any questions or concerns that arise at home. Special discussion: I discussed with the patient/guardian in detail that at this point there is no indication for admission to the hospital. It is understood, however, that if the symptoms persist or worsen the patient needs to return immediately for re-evaluation. 12/15 13:18 Order name: XRAY C Spine Ap/lat; Complete Time: 15:05 rn 12/15 13:18 Order name: EKG; Complete Time: 13:19 rn 12/15 13:18 Order name: EKG - Nurse/Tech; Complete Time: 13:59 rn EC:03 Rate is 64 beats/min. Rhythm is regular. QRS Fate is Normal. VA interval is normal. QRS rn interval is normal. QT interval is normal. No Q waves. T waves are Normal. No ST changes noted. Clinical impression: NSR w/ Non-specific ST/T Changes. Interpreted by me. Reviewed by me. Administered Medications: No medications were administered Disposition: 12/16/19 15:06 Discharged to Home. Impression: Abrasion of right forearm, Contusion of unspecified part of neck. - Condition is Stable. - Discharge Instructions: Contusion, Eye Contusion, Generalized Anxiety Disorder. - Medication Reconciliation Form, Thank You Letter, Antibiotic Education, Prescription Opioid Use form. - Follow up: Private Physician; When: As needed; Reason: Recheck today's complaints, Re-evaluation by your physician. - Problem is new. - Symptoms have improved. Signatures: Dispatcher [employer] EDMS Yong Banks MD MD rn Harris, GERONIMO Mcleod RN Corrections: (The following items were deleted from the chart) 15:03 15:03 Constitutional: Negative for fever, chills, and weight loss, Eyes: Negative for rn injury, pain, redness, and discharge, Neck: + neck pain Cardiovascular: Negative for chest pain, palpitations, and edema, Respiratory: Negative for shortness of breath, cough, wheezing, and pleuritic chest pain, Abdomen/GI: Negative for abdominal pain, nausea, vomiting, diarrhea, and constipation, MS/Extremity: Negative for injury and deformity, Skin: + abrasion right forearm and elbow Neuro: Negative for headache, weakness, numbness, tingling, and seizure, rn 15:21 15:06 12/16/2019 15:06 Discharged to Home. Impression: Abrasion of right forearm; ah Contusion of unspecified part of neck. Condition is Stable. Forms are Medication Reconciliation Form, Thank You Letter, Antibiotic Education, Prescription Opioid Use. Follow up: Private Physician; When: As needed; Reason: Recheck today's complaints, Re-evaluation by your physician. Problem is new. Symptoms have improved. rn
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
--- OUTSIDE RECORDS SUMMARY | 2019-12-16 15:36 | XMS REPORT | Continuity of Care Document ---
:1975 Author Organization [facility] t Address [address] [place] [address] Care Team Providers Name Role Phone Marissa Dorado Attending Clinician Favian CROFT Attending Clinician Nathan BARRETO Attending [...] Date/Time Type Type Clinicians Facility Department ID 2019-12-15 2019-12-15 Emergency [facility] [id number] 17:11:56 18:04:00 Marissa Gonzalez [id number] [place] [id number] [place] [id number] 2019-10-25 2019-10-25 Emergency YUDITH Ballesteros [id number] 18:31:31 19:21:00 Dwaine Gonzalez [id number] [place] [id number] [place] [id number] 2019-08-13 2019-08-13 Emergency [facility] [id number] 13:30:00 14:36:00 Jerry Gonzalez [id number] [place] [id number] [place] [id number] 2019-07-22 2019-07-22 Emergency Unknown, Attending TRAUMA [id number] 13:42:11 19:02:00 ShelbieLisa coon [facility] [id number] [id number] [id number] 2019-01-21 2019-01-21 Emergency [facility], [facility] [id number] 18:38:01 19:59:00 Le Gonzalez [id number] [place] [id number] [place] [address] [id number] Results Test Description Test Time Test Comments Results Result Comments Source Valproic Acid Level 2019-01-12 08:03:22 Test Item Value Reference Range Interpretation Comme nts Valproic Acid Level (test code = Valproic Acid Level) 57.6 ug/mL(g) 50.0-100.0 Hemoglobin [id number] 09:36:00 Test Item Value Reference Range Interpretation Comments Hemoglobin A1c (test code 5.0 % 4.8-5.9 No n Diabetic = Hemoglobin A1c) 4.8-5.9%Di abetic <7.0% CT Shoulder w/o Contrast [id number] 16:49:13Patient: BHUMIKA JONES Date/Time01/09/2019 16:14 CDTReason for [...] Adam FSigned (Electronic Signature): 01/09/2019 4:49 pmRPR [id number] 21:33:20 Test Item Value Reference Range Interpretation [...] Expiration Dt) XR Shoulder Complete 2+ Views [id number] 15:41:25Patient: BHUMIKA JONES Date/Time01/07/2019 15:25 CDTReason for [...] CSigned (Electronic Signature): 01/07/2019 3:41 pmThyroid Stimulating [id number] 03:07:04 Test Item Value Reference Range Interpretation Comments TSH (test code = TSH) 9.650 mIU/mL 0.270-4.200 H Lipid [id number] 03:07:03 Test Item Value Reference Range Interpretation Comments Cholesterol Total 199 mg/dL 0-200 RISK OF HE ART (test code = DISEASEPublishe d by Cholesterol Total) [place] [employer] [place] Optimal Borderl ine [...] LDL/HDL Ratio=L DL Calc/HDL Chol HCG Qualitative [id number] 02:33:13 Test Item Value Reference Range Interpretation Comments HCG, Serum Qual (test code = HCG, Negative Serum Qual) Lot # (test code = Lot #) [id number] N Expiration Dt (test code = 2020-04-23 N Expiration Dt) Neg Control (test code = Neg Negative Control) Pos Control (test code = Pos Positive Control) Internal QC (test code = Internal Acceptable QC) Drugs of Abuse Urine [id number] 18:58:11 Test Item Value Reference Range Interpretation [...] (test code = Cannabinoid Screen Ur) Alcohol [id number] 18:47:34 Test Item Value Reference Range Interpretation Comments Ethanol Level (test <0.00 g/dL 0.00-0.01 Intoxica isabel 0.080 g/dL code = Ethanol or more Level) Ethanol Inst (test <0 N code = Ethanol Inst) Comprehensive Metabolic [id number] 18:47:33 Test Item Value Reference Range Interpretation [...] A/G 1.0 ratio N Ratio) Comprehensive Metabolic [id number] 18:47:33 Test Item Value Reference Range Interpretation [...] National Kidney Foundation, http://nkdep.ni h.gov Comprehensive Metabolic [id number] 18:47:33 Test Item Value Reference Range Interpretation [...] ag e have not been validated by [facility] MDRD study and should be interpreted [...] ag e have not been validated by [facility] MDRD study and should be interpreted wit h caution. eGFR R esult Interpretation: eGFR > or = 60 is in the Normal RangeeGF R < 60 may mean kid betzaida diseaseeGFR < 1 5 may mean kidney failure Rang es recommended by the National Kidney Foundation, http://nkdep.ni h.gov Complete Blood Count with [id number] 18:15:23 Test Item Value Reference Range Interpretation [...] code = IPF) 0 % N Automated [id number] 18:15:23 Test Item Value Reference Range Interpretation Comments Neutro Auto (test code = Neutro 42.1 % 36.0-70.0 Auto) Lymph Auto (test code = Lymph Auto) 40.0 % 12.0-44.0 Barry Auto (test code = Barry Auto) 12.2 % 0.0-11.0 H Eos, Auto (test code = Eos, Auto) 4.9 % 0.0-7.0 Basophil Auto (test code = Basophil 0.6 % 0.0-2.0 Auto) Neutro Absolute (test code = Neutro 2.2 x10 1.6-7.4 Absolute) Lymph Absolute (test code = Lymph 2.06 x10 .50-4.60 Absolute) Barry Absolute (test code = Barry .63 x10 .00-1.20 Absolute) Eos Absolute (test code = Eos 0.25 x10 0.00-0.74 Absolute) Baso Absolute (test code = Baso 0.03 x10 0.00-0.21 Absolute) IG [id number] 18:15:23 Test Item Value Reference Range Interpretation Comments IG (test code = IG) 0.2 % 0.0-5.0 IG Abs (test code = IG Abs) 0 x10 N
[2019-12-16 18:24] VITALS: BP 138/70; TEMP 97.5; O2SAT 100
== END 2019-12-16 15:21 | disposition home or self-care (01) ==
LOC: ER 13:06
DX: S10.93XA Contusion of unspecified part of neck, initial encounter (principal); S50.811A Abrasion of right forearm, initial encounter; W19.XXXA Unspecified fall, initial encounter; Y93.89 Activity, other specified; Y92.9 Unspecified place or not applicable; G40.909 Epilepsy, unspecified, not intractable, without status epilepticus; F31.9 Bipolar disorder, unspecified
CPT/HCPCS: 72040; 93005; 99284

== ENCOUNTER 2020-01-02 13:02 | Emergency (ER) | payer SELFPAY ==
--- OUTSIDE RECORDS SUMMARY | 2020-01-02 13:05 | XMS REPORT | Continuity of Care Document ---
:[address] [facility] [place], [place] t Address [address] [place] [address] Care Team Providers Name Role Phone Marissa Dorado Attending Clinician Favian CROFT Attending Clinician Nathan BARREOT Attending Clinician Unknown Attending Clinician Unavailable Shelbie [...] Department ID 2019-12-15 2019-12-15 Emergency [facility] [place] [facility] [id number] 17:11:56 18:04:00 Marissa Gonzalez [id number] [place] [id number] [place] [id number] [id number] 2019-10-25 2019-10-25 Emergency YUDITH Ballesteros [id number] 18:31:31 19:21:00 Dwaine Gonzalez [id number] [place] [id number] [place] [id number] [id number] 2019-08-13 2019-08-13 Emergency [facility] [id number] 13:30:00 14:36:00 Jerry Gonzalez [id number] [place] [id number] [place] [id number] 2019-07-22 2019-07-22 Emergency Unknown, Attending TRAUMA [id number] 13:42:11 19:02:00 ShelbieLisa coon [facility] [id number] [id number] [id number] [id number] 2019-01-21 2019-01-21 Emergency [facility], [facility] [id number] 18:38:01 19:59:00 Le Gonzalez [id number] [place] [id number] [place] [address] [id number] Results Test Description Test Time Test Comments Results Result Comments Source Valproic Acid Level 2019-01-12 08:03:22 Test Item Value Reference Range Interpretation Comme nts Valproic Acid Level (test code = Valproic Acid Level) 57.6 ug/mL(g) 50.0-100.0 Hemoglobin [id number] 09:36:00 Test Item Value Reference Range Interpretation Comments Hemoglobin A1c (test code 5.0 % 4.8-5.9 No n Diabetic = Hemoglobin A1c) 4.8-5.9%Di abetic <7.0% CT Shoulder w/o Contrast [id number] 16:49:13Patient: BHUMIKA JONES Date/Time01/09/2019 16:14 CDTReason for [...] Adam FSigned (Electronic Signature): 01/09/2019 4:49 pmRPR [id number] 21:33:20 Test Item Value Reference Range Interpretation [...] Expiration Dt) XR Shoulder Complete 2+ Views [id number] 15:41:25Patient: BHUMIKA JONES Date/Time01/07/2019 15:25 CDTReason for [...] CSigned (Electronic Signature): 01/07/2019 3:41 pmThyroid Stimulating [id number] 03:07:04 Test Item Value Reference Range Interpretation Comments TSH (test code = TSH) 9.650 mIU/mL 0.270-4.200 H Lipid [id number] 03:07:03 Test Item Value Reference Range Interpretation Comments Cholesterol Total 199 mg/dL 0-200 RISK OF HE ART (test code = DISEASEPublishe d by Cholesterol Total) [employer] [place] Optimal Borderl ine [...] LDL/HDL Ratio=L DL Calc/HDL Chol HCG Qualitative [id number] 02:33:13 Test Item Value Reference Range Interpretation Comments HCG, Serum Qual (test code = HCG, Negative Serum Qual) Lot # (test code = Lot #) [id number] N Expiration Dt (test code = 2020-04-23 N Expiration Dt) Neg Control (test code = Neg Negative Control) Pos Control (test code = Pos Positive Control) Internal QC (test code = Internal Acceptable QC) Drugs of Abuse Urine [id number] 18:58:11 Test Item Value Reference Range Interpretation [...] (test code = Cannabinoid Screen Ur) Alcohol [id number] 18:47:34 Test Item Value Reference Range Interpretation Comments Ethanol Level (test <0.00 g/dL 0.00-0.01 Intoxica isabel 0.080 g/dL code = Ethanol or more Level) Ethanol Inst (test <0 N code = Ethanol Inst) Comprehensive Metabolic [id number] 18:47:33 Test Item Value Reference Range Interpretation [...] A/G 1.0 ratio N Ratio) Comprehensive Metabolic [id number] 18:47:33 Test Item Value Reference Range Interpretation [...] National Kidney Foundation, http://nkdep.ni h.gov Comprehensive Metabolic [id number] 18:47:33 Test Item Value Reference Range Interpretation [...] ag e have not been validated by [facility] MDRD study and should be interpreted [...] ag e have not been validated by [facility] MDRD study and should be interpreted wit h caution. eGFR R esult Interpretation: eGFR > or = 60 is in the Normal RangeeGF R < 60 may mean kid betzaida diseaseeGFR < 1 5 may mean kidney failure Rang es recommended by the National Kidney Foundation, http://nkdep.ni h.gov Complete Blood Count with [id number] 18:15:23 Test Item Value Reference Range Interpretation [...] code = IPF) 0 % N Automated [id number] 18:15:23 Test Item Value Reference Range Interpretation Comments Neutro Auto (test code = Neutro 42.1 % 36.0-70.0 Auto) Lymph Auto (test code = Lymph Auto) 40.0 % 12.0-44.0 Chase Auto (test code = Chase Auto) 12.2 % 0.0-11.0 H Eos, Auto (test code = Eos, Auto) 4.9 % 0.0-7.0 Basophil Auto (test code = Basophil 0.6 % 0.0-2.0 Auto) Neutro Absolute (test code = Neutro 2.2 x10 1.6-7.4 Absolute) Lymph Absolute (test code = Lymph 2.06 x10 .50-4.60 Absolute) Chase Absolute (test code = Chase .63 x10 .00-1.20 Absolute) Eos Absolute (test code = Eos 0.25 x10 0.00-0.74 Absolute) Baso Absolute (test code = Baso 0.03 x10 0.00-0.21 Absolute) IG [id number] 18:15:23 Test Item Value Reference Range Interpretation Comments IG (test code = IG) 0.2 % 0.0-5.0 IG Abs (test code = IG Abs) 0 x10 N
--- NOTE | 2020-01-02 13:57 | RAD REPORT ---
EXAM DESCRIPTION: RAD - C Spine Ap/Lat - 01/02/2020 1:32 pm CLINICAL HISTORY: PAIN COMPARISON: C Spine Ap/Lat dated 12/16/2019; C Spine Ap/Lat dated 11/08/2019 FINDINGS: Cervical bodies are normal in height. No subluxation abnormality. Patient has an accentuat ed kyphosis near the cervicothoracic junction. This could reflect muscle spasm. No jumped or locked f acet joints. No fracture or acute bony process seen. Patient has disc space narrowing anteriorly at C 5-6. Endplate spurring changes are present. There is no prevertebral soft tissue thickening or other suspicious soft tissue finding. IMPRESSION: Cervical spine degenerative change not clearly different from the short interval December 15 imaging.
[2020-01-02 14:15] LABS: Absolute Lymphocytes (CBC) 0.7 K/uL (0.7-4.9); Basophils % 0.9 % (0-1.3); Hematocrit 34.5 % (36.0-45.0); Lymphocytes % 24.6 % (15.3-44.8); MPV 8.6 fL (7.6-11.3); RBC Red Blood Cell Count 3.92 M/uL (3.86-4.86)
[2020-01-02 14:25] LABS: Potassium 3.4 mmol/L (3.5-5.1)
--- NOTE | 2020-01-02 14:45 | ER ---
Nurse's Notes [facility] Name: Sidra Hodges Age: 44 yrs Sex: Female : 1975 Arrival Date: 01/02/2020 Time: 13:02 Bed 26 Private MD: Diagnosis: Pancytopenia;Dehydration;Cervicalgia Presentation: 01/01 13:00 Chief complaint: EMS states: pt was found walking around [place], screaming and crying, iw was c/o neck pain and that her feet hurt. Coronavirus screen: Proceed with normal triage. Patient denies a cough. Patient denies shortness of breath or difficulty breathing. Patient denies measured and/or subjective temperature greater than 100.4F prior to today's visit. Patient denies travel on a cruise ship or to a country the [facility] currently lists as an affected area. Patient denies contact with known and/or suspected case of COVID-19. Ebola Screen: Patient negative for fever greater than or equal to 101.5 degrees Fahrenheit, and additional compatible Ebola Virus Disease symptoms Patient denies exposure to infectious person. Patient denies travel to an Ebola-affected area in the 21 days before illness onset. No symptoms or risks identified at this time. Initial Sepsis Screen: Does the patient meet any 2 criteria? No. Patient's initial sepsis screen is negative. Does the patient have a suspected source of infection? No. Patient's initial sepsis screen is negative. Risk Assessment: Do you want to hurt yourself or someone else? Patient reports no desire to harm self or others. Onset of symptoms was January 02, 2020. 13:00 Method Of Arrival: EMS: [facility] iw 13:00 Acuity: CARMITA 3 iw Historical: - Allergies: 13:24 NKA; iw - PMHx: 13:24 ADD/ADHD; Anxiety; Bipolar disorder; Chronic pain; hemorrhoids; psychiatric; Seizures; iw Assessment: 14:02 Reassessment: Patient appears in no apparent distress at this time. Patient and/or iw family updated on plan of care and expected duration. Pain level reassessed. Patient is alert, oriented x 3, equal unlabored respirations, skin warm/dry/pink. Vital Signs: 14:10 BP 134 / 74; Pulse 78; Resp 16; Temp 98.0; Pulse Ox 97% on R/A; iw ED Course: 13:02 Patient arrived in ED. iw 13:06 Laila Foreman, GERONIMO is Primary Nurse. iw 13:07 [facility] jr8 13:07 Yong Banks MD is Attending Physician. jr8 13:23 Triage completed. iw 13:30 XRAY C Spine Ap/lat In Process Unspecified. EDMS 14:03 Inserted saline lock: 22 gauge in left antecubital area, using aseptic technique. iw 14:43 Dana Bradshaw MD is Referral Physician. jr8 Administered Medications: 14:02 Drug: NS 0.9% 1000 ml Route: IV; Rate: 1000 ml; Site: left antecubital; iw 15:21 Drug: Potassium Chloride 20 mEq Route: PO; iw Outcome: 14:44 Discharge ordered by . jr8 15:46 Patient left the ED. iw Signatures: Dispatcher [employer] EDFL Laila Foreman RN RN iw Franck Alejandra PA PA jr8
--- NOTE | 2020-01-02 14:46 | EDPHYS ---
Physician Documentation [facility] Name: Sidra Hodges Age: 44 yrs Sex: Female : 1975 Arrival Date: 01/02/2020 Time: 13:02 Bed 26 Private MD: ED Physician Yong Banks HPI: 01/01 13:42 This 44 yrs old Female presents to ER via EMS with complaints of Neck Problem. jr8 13:44 Patient found by police [place] [address] Was stopped to make sure she was ok. Stated jr8 that she was having neck pain. Denies trauma. EMS called at that time. Patient upon arrival complaining of feet pain and neck pain . Severity of symptoms: At their worst the symptoms were mild in the emergency department the symptoms are unchanged. It is unknown whether or not the patient has had similar symptoms in the past. It is unknown whether or not the patient has recently seen a physician. Historical: - Allergies: 13:24 NKA; iw - PMHx: 13:24 ADD/ADHD; Anxiety; Bipolar disorder; Chronic pain; hemorrhoids; psychiatric; Seizures; iw ROS: 13:44 Eyes: Negative for injury, pain, redness, and discharge, ENT: Negative for injury, jr8 pain, and discharge, Cardiovascular: Negative for chest pain, palpitations, and edema, Respiratory: Negative for shortness of breath, cough, wheezing, and pleuritic chest pain, Abdomen/GI: Negative for abdominal pain, nausea, vomiting, diarrhea, and constipation, Back: Negative for injury and pain, MS/Extremity: Negative for injury and deformity, Skin: Negative for injury, rash, and discoloration, Neuro: Negative for headache, weakness, numbness, tingling, and seizure. 13:44 Neck: Positive for pain with movement, pain at rest, tenderness. Exam: 13:44 Eyes: Pupils equal round and reactive to light, extra-ocular motions intact. Lids and jr8 lashes normal. Conjunctiva and sclera are non-icteric and not injected. Cornea within normal limits. Periorbital areas with no swelling, redness, or edema. ENT: Nares patent. No nasal discharge, no septal abnormalities noted. Tympanic membranes are normal and external auditory canals are clear. Oropharynx with no redness, swelling, or masses, exudates, or evidence of obstruction, uvula midline. Mucous membranes moist. Cardiovascular: Regular rate and rhythm with a normal S1 and S2. No gallops, murmurs, or rubs. Normal PMI, no JVD. No pulse deficits. Respiratory: Lungs have equal breath sounds bilaterally, clear to auscultation and percussion. No rales, rhonchi or wheezes noted. No increased work of breathing, no retractions or nasal flaring. Abdomen/GI: Soft, non-tender, with normal bowel sounds. No distension or tympany. No guarding or rebound. No evidence of tenderness throughout. Back: No spinal tenderness. No costovertebral tenderness. Full range of motion. Skin: Warm, dry with normal turgor. Normal color with no rashes, no lesions, and no evidence of cellulitis. MS/ Extremity: Pulses equal, no cyanosis. Neurovascular intact. Full, normal range of motion. Neuro: Awake and alert, GCS 15, oriented to person, place, time, and situation. Cranial nerves II-XII grossly intact. Motor strength 5/5 in all extremities. Sensory grossly intact. Cerebellar exam normal. Normal gait. 13:44 Neck: External neck: tenderness, that is mild, of the left mid cervical area, right mid cervical area, left trapezius and right trapezius, C-spine: appears grossly normal, Thyroid: appears normal, Trachea: is midline with no obvious abnormalities, ROM/movement: pain, that is mild, with any movement, Meningeal signs: are not present, nuchal rigidity, is not appreciated. Vital Signs: 14:10 BP 134 / 74; Pulse 78; Resp 16; Temp 98.0; Pulse Ox 97% on R/A; iw MDM: 13:07 Patient medically screened. jr8 14:29 Data reviewed: vital signs, nurses notes, lab test result(s), radiologic studies, plain jr8 films. Data interpreted: Pulse oximetry: on room air is 97 %. Interpretation: normal. Counseling: I had a detailed discussion with the patient and/or guardian regarding: the historical points, exam findings, and any diagnostic results supporting the discharge/admit diagnosis, lab results, radiology results, the need for outpatient follow up, oncology. 14:43 ED course: Discussed with patient that she has some pancytopenia. No other symptoms jr8 present. Recommended hematology/oncology f/u . 01/01 13:07 Order name: CBC with Diff jr8 01/01 13:07 Order name: Basic Metabolic Panel; Complete Time: 14:27 jr8 01/01 13:07 Order name: XRAY C Spine Ap/lat; Complete Time: 14:01 jr8 01/01 13:08 Order name: CBC with Automated Diff EDMS 01/01 14:22 Order name: Manual Differential EDMS 01/01 13:07 Order name: IV; Complete Time: 14:02 8 Administered Medications: 14:02 Drug: NS 0.9% 1000 ml Route: IV; Rate: 1000 ml; Site: left antecubital; iw 15:21 Drug: Potassium Chloride 20 mEq Route: PO; iw Disposition: 15:52 Co-signature as Attending Physician, Yong Banks MD. rn Disposition: 01/02/20 14:44 Discharged to Home. Impression: Pancytopenia, Dehydration, Cervicalgia. - Condition is Stable. - Discharge Instructions: Dehydration, Adult, Pancytopenia. - Medication Reconciliation Form, Thank You Letter, Antibiotic Education, Prescription Opioid Use form. - Follow up: Dnaa Bradshaw MD; When: 2 - 3 days; Reason: Recheck today's complaints, Continuance of care, Re-evaluation by your physician. - Problem is new. - Symptoms have improved. Signatures: Dispatcher [employer] Laila Warren RN RN iw Nieto, Roman, MD MD rn Roszak, Josh, PA PA jr8 Corrections: (The following items were deleted from the chart) 15:46 14:44 01/02/2020 14:44 Discharged to Home. Impression: Pancytopenia; Dehydration; iw Cervicalgia. Condition is Stable. Forms are Medication Reconciliation Form, Thank You Letter, Antibiotic Education, Prescription Opioid Use. Follow up: Dana Vargas; When: 2 - 3 days; Reason: Recheck today's complaints, Continuance of care, Re-evaluation by your physician. Problem is new. Symptoms have improved. jr8
[2020-01-02] MEDS ORDERED: POTASSIUM CL SA 10 MEQ TAB PO ONE (15:11)
[2020-01-02 15:51] VITALS: BP 134/74; TEMP 98; O2SAT 97
[2020-01-02 16:53] LABS: Platelet Estimate DECR
[2020-01-02 16:54] LABS: Blood Morphology Comment NOT SEEN (NOT SEEN)
== END 2020-01-02 15:46 | disposition home or self-care (01) ==
LOC: ER 13:02
DX: D61.818 Other pancytopenia (principal); E86.0 Dehydration
CPT/HCPCS: 36415; 72040; 80048; 85025; 99284

== ENCOUNTER 2020-01-21 12:06 | Emergency (ER) | payer SELFPAY ==
--- OUTSIDE RECORDS SUMMARY | 2020-01-21 12:09 | XMS REPORT | Continuity of Care Document ---
:1975 Author Organization [facility] t Address [address] [place] [address] Care Team Providers Name Role Phone Marissa Dorado Attending Clinician Favian CROFT Attending Clinician Nathan BARRETO Attending Clinician Unknown Attending Clinician Unavailable Shelbie BARRETO S Attending Clinician James LINDA, G Attending [...] Department ID 2019-12-15 2019-12-15 Emergency [place] [facility] [id number] 17:11:56 18:04:00 Marissa Gonzalez [id number] [place] [id number] [place] [id number] 2019-10-25 2019-10-25 Emergency YUDITH Ballesteros [id number] 18:31:31 19:21:00 Dwaine Gonzalez [id number] [place] [id number] [place] [id number] [id number] 2019-08-13 2019-08-13 Emergency [place], [facility] [id number] 13:30:00 14:36:00 Jerry Gonzalez [id number] [place] [id number] [place] [id number] 2019-07-22 2019-07-22 Emergency Unknown, Attending TRAUMA [id number] 13:42:11 19:02:00 Lisa Morfin [facility] [id number] [id number] [id number] [id number] 2019-01-21 2019-01-21 Emergency [facility], [facility] [id number] 18:38:01 19:59:00 Le Gonzalez [id number] [place] [id number] [place] [address] [id number] Results Test Description Test Time Test Comments Results Result Comments Source Valproic Acid Level 2019-01-12 08:03:22 Test Item Value Reference Range Interpretation Comme nts Valproic Acid Level (test code = Valproic Acid Level) 57.6 ug/mL(g) 50.0-100.0 Hemoglobin [id number] 09:36:00 Test Item Value Reference Range Interpretation Comments Hemoglobin A1c (test code 5.0 % 4.8-5.9 No n Diabetic = Hemoglobin A1c) 4.8-5.9%Di abetic <7.0% CT Shoulder w/o Contrast [id number] 16:49:13Patient: BHUMIKA JONES Date/Time01/09/2019 16:14 CDTReason for [...] Adam FSigned (Electronic Signature): 01/09/2019 4:49 pmRPR [id number] 21:33:20 Test Item Value Reference Range Interpretation [...] Expiration Dt) XR Shoulder Complete 2+ Views [id number] 15:41:25Patient: BHUMIKA JONES Date/Time01/07/2019 15:25 CDTReason for [...] CSigned (Electronic Signature): 01/07/2019 3:41 pmThyroid Stimulating [id number] 03:07:04 Test Item Value Reference Range Interpretation Comments TSH (test code = TSH) 9.650 mIU/mL 0.270-4.200 H Lipid [id number] 03:07:03 Test Item Value Reference Range Interpretation Comments Cholesterol Total 199 mg/dL 0-200 RISK OF HE ART (test code = DISEASEPublishe d by Cholesterol Total) [employer] [place] Optimal Borderl ine [...] LDL/HDL Ratio=L DL Calc/HDL Chol HCG Qualitative [id number] 02:33:13 Test Item Value Reference Range Interpretation Comments HCG, Serum Qual (test code = HCG, Negative Serum Qual) Lot # (test code = Lot #) [id number] N Expiration Dt (test code = 2020-04-23 N Expiration Dt) Neg Control (test code = Neg Negative Control) Pos Control (test code = Pos Positive Control) Internal QC (test code = Internal Acceptable QC) Drugs of Abuse Urine [id number] 18:58:11 Test Item Value Reference Range Interpretation [...] (test code = Cannabinoid Screen Ur) Alcohol [id number] 18:47:34 Test Item Value Reference Range Interpretation Comments Ethanol Level (test <0.00 g/dL 0.00-0.01 Intoxica isabel 0.080 g/dL code = Ethanol or more Level) Ethanol Inst (test <0 N code = Ethanol Inst) Comprehensive Metabolic [id number] 18:47:33 Test Item Value Reference Range Interpretation [...] A/G 1.0 ratio N Ratio) Comprehensive Metabolic [id number] 18:47:33 Test Item Value Reference Range Interpretation [...] National Kidney Foundation, http://nkdep.ni h.gov Comprehensive Metabolic [id number] 18:47:33 Test Item Value Reference Range Interpretation [...] ag e have not been validated by [facility] MDRD study and should be interpreted [...] ag e have not been validated by [facility] MDRD study and should be interpreted wit h caution. eGFR R esult Interpretation: eGFR > or = 60 is in the Normal RangeeGF R < 60 may mean kid betzaida diseaseeGFR < 1 5 may mean kidney failure Rang es recommended by the National Kidney Foundation, http://nkdep.[facility].gov Complete Blood Count with [id number] 18:15:23 Test Item Value Reference Range Interpretation [...] code = IPF) 0 % N Automated [id number] 18:15:23 Test Item Value Reference Range Interpretation Comments Neutro Auto (test code = Neutro 42.1 % 36.0-70.0 Auto) Lymph Auto (test code = Lymph Auto) 40.0 % 12.0-44.0 Craig Auto (test code = Craig Auto) 12.2 % 0.0-11.0 H Eos, Auto (test code = Eos, Auto) 4.9 % 0.0-7.0 Basophil Auto (test code = Basophil 0.6 % 0.0-2.0 Auto) Neutro Absolute (test code = Neutro 2.2 x10 1.6-7.4 Absolute) Lymph Absolute (test code = Lymph 2.06 x10 .50-4.60 Absolute) Craig Absolute (test code = Craig .63 x10 .00-1.20 Absolute) Eos Absolute (test code = Eos 0.25 x10 0.00-0.74 Absolute) Baso Absolute (test code = Baso 0.03 x10 0.00-0.21 Absolute) IG [id number] 18:15:23 Test Item Value Reference Range Interpretation Comments IG (test code = IG) 0.2 % 0.0-5.0 IG Abs (test code = IG Abs) 0 x10 N
--- NOTE | 2020-01-21 13:41 | ER ---
Nurse's Notes [facility] Name: Sidra Hodges Age: 44 yrs Sex: Female : 1975 Arrival Date: 01/21/2020 Time: 12:07 Bed 8 Private MD: Diagnosis: Nausea Presentation: 01/20 12:16 Chief complaint: EMS states: 911 CALLED FOR PT FEELING NAUSEOUS AT HOME SHE DOES NOT bp LIVE AT. Coronavirus screen: At this time, the client does not indicate any symptoms associated with coronavirus-19. Ebola Screen: No symptoms or risks identified at this time. Initial Sepsis Screen: Does the patient meet any 2 criteria? No. Patient's initial sepsis screen is negative. Does the patient have a suspected source of infection? No. Patient's initial sepsis screen is negative. Risk Assessment: Do you want to hurt yourself or someone else? Patient reports no desire to harm self or others. Note PT REFUSED PIV, BGL AND NIBP BY EMS. Onset of symptoms is unknown. 12:16 Method Of Arrival: EMS: [facility] bp 12:16 Acuity: CARMITA 4 bp Triage Assessment: 12:19 General: Appears in no apparent distress. comfortable, obese, Behavior is anxious. bp Pain: Denies pain. EENT: No deficits noted. Neuro: Level of Consciousness is awake, alert. Cardiovascular: Rhythm is sinus rhythm. Respiratory: No deficits noted. GI: Reports nausea. : No signs and/or symptoms were reported regarding the genitourinary system. Derm: No deficits noted. Musculoskeletal: No deficits noted. Historical: - Allergies: 12:19 NKA; bp - Home Meds: 12:19 divalproex 500 mg Oral TbEC [Active]; Risperdal 3 mg Oral tab [Active]; bp - PMHx: 12:19 ADD/ADHD; Anxiety; Bipolar disorder; Chronic pain; hemorrhoids; psychiatric; Seizures; bp - Immunization history:: Adult Immunizations unknown. - Social history:: Smoking status: Patient denies any tobacco usage or history of. Screenin:21 Abuse screen: Denies threats or abuse. Denies injuries from another. Nutritional bp screening: No deficits noted. Tuberculosis screening: No symptoms or risk factors identified. Fall Risk None identified. Assessment: 12:21 General: SEE TRIAGE NOTE. GI: Abdomen is non-distended. bp 13:19 Reassessment: ED STAFF UNABLE TO OBTAIN PIV OR BLOOD SPECIMEN WITH MX ATTEMPTS. bp PHLEBOTOMY CONTACTED FOR BLOOD DRAW. 13:52 Reassessment: PT REFUSING TO COOPERATE WITH BLOOD DRAW. PT D/C HOME AMBULATORY, DX WITH bp NAUSEA. Vital Signs: 12:16 BP 118 / 74; Pulse 61; Resp 18; Temp 98.1; Pulse Ox 100% ; bp 13:52 BP 113 / 69; Pulse 65; Resp 17; Temp 98.5; Pulse Ox 99% ; bp ED Course: 12:07 Patient arrived in ED. iw 12:15 Jose Jama, RN is Primary Nurse. bp 12:19 Triage completed. bp 12:20 Arm band placed on. bp 12:21 Patient has correct armband on for positive identification. Bed in low position. Call bp light in reach. Side rails up X2. 12:34 Boris Olivera MD is Attending Physician. kdr 13:52 No provider procedures requiring assistance completed. Patient did not have IV access bp during this emergency room visit. Administered Medications: No medications were administered Outcome: 13:40 Discharge ordered by . kdr 13:52 Discharged to home ambulatory. bp 13:52 Condition: stable 13:52 Discharge instructions given to patient, Instructed on discharge instructions, follow up and referral plans. Demonstrated understanding of instructions, follow-up care. 13:53 Patient left the ED. bp Signatures: Boris Olivera MD MD kdr Laila Foreman RN RN Jose Jama, GERONIMO RN bp Corrections: (The following items were deleted from the chart) 12:20 12:16 BP 162 / 74; Pulse 61bpm; Resp 18bpm; Pulse Ox 100%; Temp 98.1F; bp bp
--- NOTE | 2020-01-21 13:41 | EDPHYS ---
Physician Documentation [facility] Name: Sidra Hodges Age: 44 yrs Sex: Female : 1975 Arrival Date: 01/21/2020 Time: 12:07 Bed 8 Private MD: ED Physician Boris Olivera HPI: 01/20 16:05 This 44 yrs old Female presents to ER via EMS with complaints of Nausea. kdr 16:05 The patient presents to the emergency department with nausea, The patient refuses to kdr answer questions - she is well known to ED and frequently presents with various complaints only to leave AMA or unannounced. She will then travel home on the bus and then call EMS again to bring her in. Onset: The symptoms/episode began/occurred at an unknown time. Historical: - Allergies: 12:19 NKA; bp - Home Meds: 12:19 divalproex 500 mg Oral TbEC [Active]; Risperdal 3 mg Oral tab [Active]; bp - PMHx: 12:19 ADD/ADHD; Anxiety; Bipolar disorder; Chronic pain; hemorrhoids; psychiatric; Seizures; bp - Immunization history:: Adult Immunizations unknown. - Social history:: Smoking status: Patient denies any tobacco usage or history of. ROS: 16:05 Constitutional: The patient is uncooperative for ROS kdr Exam: 16:05 Constitutional: This is a well developed, well nourished patient who is awake, alert, kdr and in no acute distress. Head/Face: Normocephalic, atraumatic. Eyes: Pupils equal round and reactive to light, extra-ocular motions intact. Lids and lashes normal. Conjunctiva and sclera are non-icteric and not injected. Cornea within normal limits. Periorbital areas with no swelling, redness, or edema. Neck: Trachea midline, no thyromegaly or masses palpated, and no cervical lymphadenopathy. Supple, full range of motion without nuchal rigidity, or vertebral point tenderness. No Meningismus. Chest/axilla: Normal chest wall appearance and motion. Nontender with no deformity. No lesions are appreciated. Cardiovascular: Regular rate and rhythm with a normal S1 and S2. No gallops, murmurs, or rubs. Normal PMI, no JVD. No pulse deficits. Respiratory: Lungs have equal breath sounds bilaterally, clear to auscultation and percussion. No rales, rhonchi or wheezes noted. No increased work of breathing, no retractions or nasal flaring. Abdomen/GI: Soft, non-tender, with normal bowel sounds. No distension or tympany. No guarding or rebound. No evidence of tenderness throughout. Back: No spinal tenderness. No costovertebral tenderness. Full range of motion. Skin: Warm, dry with normal turgor. Normal color with no rashes, no lesions, and no evidence of cellulitis. MS/ Extremity: Pulses equal, no cyanosis. Neurovascular intact. Full, normal range of motion. Neuro: Awake and alert, GCS 15, oriented to person, place, time, and situation. Cranial nerves II-XII grossly intact. Motor strength 5/5 in all extremities. Sensory grossly intact. Cerebellar exam normal. Normal gait. 16:05 Psych: Behavior/mood is uncooperative, inappropriate for age, Affect is flat, Patient has no thoughts/intents to harm self or others. Judgement / Insight is impaired. Vital Signs: 12:16 BP 118 / 74; Pulse 61; Resp 18; Temp 98.1; Pulse Ox 100% ; bp 13:52 BP 113 / 69; Pulse 65; Resp 17; Temp 98.5; Pulse Ox 99% ; bp MDM: 13:40 Patient medically screened. kdr 16:05 Data reviewed: vital signs, nurses notes. Counseling: I had a detailed discussion with kdr the patient and/or guardian regarding: the historical points, exam findings, and any diagnostic results supporting the discharge/admit diagnosis, the need for outpatient follow up. 01/20 12:46 Order name: CBC with Diff kdr Administered Medications: No medications were administered Disposition: 01/21/20 13:40 Discharged to Home. Impression: Nausea. - Condition is Stable. - Discharge Instructions: Nausea, Adult, [id number]. - Medication Reconciliation Form, Thank You Letter form. - Follow up: Private Physician; When: 2 - 3 days; Reason: If symptoms return, Further diagnostic work-up, Recheck today's complaints, Continuance of care, Re-evaluation by your physician. - Problem is new. - Symptoms have improved. Signatures: Dispatcher [employer] EDBoris Kaur MD MD kdr Peltier, Brian RN RN bp Corrections: (The following items were deleted from the chart) 13:53 13:40 01/21/2020 13:40 Discharged to Home. Impression: Nausea. Condition is Stable. bp Forms are Medication Reconciliation Form, Thank You Letter, Antibiotic Education, Prescription Opioid Use. Follow up: Private Physician; When: 2 - 3 days; Reason: If symptoms return, Further diagnostic work-up, Recheck today's complaints, Continuance of care, Re-evaluation by your physician. Problem is new. Symptoms have improved. kdr
[2020-01-21 14:00] VITALS: BP 113/69; TEMP 98.5; O2SAT 99
[2020-01-21 14:41] LABS: Absolute Lymphocytes (CBC) 1.7 K/uL (0.7-4.9); Basophils % 0.8 % (0-1.3); Hematocrit 34.3 % (36.0-45.0); Lymphocytes % 40.5 % (15.3-44.8); RBC Red Blood Cell Count 3.96 M/uL (3.86-4.86)
[2020-01-21 14:52] LABS: MPV 9.6 fL (7.6-11.3)
[2020-01-21 19:24] LABS: Platelet Estimate DECR
[2020-01-21 19:25] LABS: Blood Morphology Comment NOT SEEN (NOT SEEN)
== END 2020-01-21 13:53 | disposition home or self-care (01) ==
LOC: ER 12:06
DX: R11.0 Nausea (principal); F31.9 Bipolar disorder, unspecified; G40.909 Epilepsy, unspecified, not intractable, without status epilepticus
CPT/HCPCS: 36415; 85025; 99284

== ENCOUNTER 2020-01-21 16:00 | Emergency (ER) | payer SELFPAY ==
--- OUTSIDE RECORDS SUMMARY | 2020-01-21 16:03 | XMS REPORT | Continuity of Care Document ---
:1975 Author Organization [facility] t Address [address] [place] [address] Care Team Providers Name Role Phone Marissa [...] Department ID 2019-12-15 2019-12-15 Emergency [place]p [place] [facility] [id number] 17:11:56 18:04:00 Marissa Gonzalez [id number] [place] [id number] [place] [id number] [id number] 2019-10-25 2019-10-25 Emergency YUDITH Ballesteros [id number] 18:31:31 19:21:00 Dwaine Gonzalez [id number] [place] [id number] [place] [id number] [id number] 2019-08-13 2019-08-13 Emergency [place], [facility] [id number] 13:30:00 14:36:00 Jerry Gonzalez [id number] [place] [id number] [place] [id number] 2019-07-22 2019-07-22 Emergency Unknown, Attending TRAUMA [id number] 13:42:11 19:02:00 Lisa Morfin [facility] [id number] [id number] [id number] 2019-01-21 2019-01-21 Emergency [facility], [facility] [id number] 18:38:01 19:59:00 Le Gonzalez [id number] [place] [id number] [place] [address] [phone] [id number] Results Test Description Test Time Test Comments Results Result Comments Source Valproic Acid Level 2019-01-12 08:03:22 Test Item Value Reference Range Interpretation Comme nts Valproic Acid Level (test code = Valproic Acid Level) 57.6 ug/mL(g) 50.0-100.0 Hemoglobin [id number] 09:36:00 Test Item Value Reference Range Interpretation Comments Hemoglobin A1c (test code 5.0 % 4.8-5.9 No n Diabetic = Hemoglobin A1c) 4.8-5.9%Di abetic <7.0% CT Shoulder w/o Contrast [id number] 16:49:13Patient: BHUMIKA JONES Date/Time01/09/2019 16:14 CDTReason for [...] Adam FSigned (Electronic Signature): 01/09/2019 4:49 pmRPR [id number] 21:33:20 Test Item Value Reference Range Interpretation [...] Expiration Dt) XR Shoulder Complete 2+ Views [id number] 15:41:25Patient: BHUMIKA JONES Date/Time01/07/2019 15:25 CDTReason for [...] CSigned (Electronic Signature): 01/07/2019 3:41 pmThyroid Stimulating [id number] 03:07:04 Test Item Value Reference Range Interpretation Comments TSH (test code = TSH) 9.650 mIU/mL 0.270-4.200 H Lipid [id number] 03:07:03 Test Item Value Reference Range Interpretation Comments Cholesterol Total 199 mg/dL 0-200 RISK OF HE ART (test code = DISEASEPublishe d by Cholesterol Total) [place] [employer] [place] Optimal Borderl ine [...] LDL/HDL Ratio=L DL Calc/HDL Chol HCG Qualitative [id number] 02:33:13 Test Item Value Reference Range Interpretation Comments HCG, Serum Qual (test code = HCG, Negative Serum Qual) Lot # (test code = Lot #) [id number] N Expiration Dt (test code = 2020-04-23 N Expiration Dt) Neg Control (test code = Neg Negative Control) Pos Control (test code = Pos Positive Control) Internal QC (test code = Internal Acceptable QC) Drugs of Abuse Urine [id number] 18:58:11 Test Item Value Reference Range Interpretation [...] (test code = Cannabinoid Screen Ur) Alcohol [id number] 18:47:34 Test Item Value Reference Range Interpretation Comments Ethanol Level (test <0.00 g/dL 0.00-0.01 Intoxica isabel 0.080 g/dL code = Ethanol or more Level) Ethanol Inst (test <0 N code = Ethanol Inst) Comprehensive Metabolic [id number] 18:47:33 Test Item Value Reference Range Interpretation [...] A/G 1.0 ratio N Ratio) Comprehensive Metabolic [id number] 18:47:33 Test Item Value Reference Range Interpretation [...] National Kidney Foundation, http://nkdep.ni h.gov Comprehensive Metabolic [id number] 18:47:33 Test Item Value Reference Range Interpretation [...] ag e have not been validated by [facility] MDRD study and should be [...] ag e have not been validated by [facility] MDRD study and should be interpreted wit h caution. eGFR R esult Interpretation: eGFR > or = 60 is in the Normal RangeeGF R < 60 may mean kid betzaida diseaseeGFR < 1 5 may mean kidney failure Rang es recommended by the National Kidney Foundation, http://nkdep.[facility].gov Complete Blood Count with [id number] 18:15:23 Test Item Value Reference Range Interpretation [...] code = IPF) 0 % N Automated [id number] 18:15:23 Test Item Value Reference Range Interpretation Comments Neutro Auto (test code = Neutro 42.1 % 36.0-70.0 Auto) Lymph Auto (test code = Lymph Auto) 40.0 % 12.0-44.0 Mathews Auto (test code = Mathews Auto) 12.2 % 0.0-11.0 H Eos, Auto (test code = Eos, Auto) 4.9 % 0.0-7.0 Basophil Auto (test code = Basophil 0.6 % 0.0-2.0 Auto) Neutro Absolute (test code = Neutro 2.2 x10 1.6-7.4 Absolute) Lymph Absolute (test code = Lymph 2.06 x10 .50-4.60 Absolute) Mathews Absolute (test code = Mathews .63 x10 .00-1.20 Absolute) Eos Absolute (test code = Eos 0.25 x10 0.00-0.74 Absolute) Baso Absolute (test code = Baso 0.03 x10 0.00-0.21 Absolute) IG [id number] 18:15:23 Test Item Value Reference Range Interpretation Comments IG (test code = IG) 0.2 % 0.0-5.0 IG Abs (test code = IG Abs) 0 x10 N
--- NOTE | 2020-01-21 17:55 | ER ---
Nurse's Notes [facility] Name: Sidra Hodges Age: 44 yrs Sex: Female : 1975 Arrival Date: 01/21/2020 Time: 16:05 Bed 23 Private MD: Diagnosis: Nausea Presentation: 01/20 16:05 Chief complaint: EMS states: called EMS for headache and felt like she was going to iw pass out, was just discharged from ER an hour ago. Coronavirus screen: Client denies travel out of the [place] in the last 14 days. Patient denies a cough. Patient denies shortness of breath or difficulty breathing. Patient denies measured and/or subjective temperature greater than 100.4F prior to today's visit. Patient denies travel on a cruise ship or to a country the [facility] currently lists as an affected area. Patient denies contact with known and/or suspected case of COVID-19. Proceed with normal triage. Ebola Screen: Patient negative for fever greater than or equal to 101.5 degrees Fahrenheit, and additional compatible Ebola Virus Disease symptoms Patient denies exposure to infectious person. Patient denies travel to an Ebola-affected area in the 21 days before illness onset. No symptoms or risks identified at this time. Initial Sepsis Screen: Does the patient meet any 2 criteria? No. Patient's initial sepsis screen is negative. Does the patient have a suspected source of infection? No. Patient's initial sepsis screen is negative. Risk Assessment: Do you want to hurt yourself or someone else? Patient reports no desire to harm self or others. Onset of symptoms was January 21, 2020. 16:05 Method Of Arrival: EMS: [facility] iw 16:05 Acuity: CARMITA 5 iw Triage Assessment: 16:30 General: Appears in no apparent distress. iw 18:00 General: Behavior is calm, cooperative. iw Historical: - Allergies: 16:06 NKA; iw - PMHx: 16:06 ADD/ADHD; Anxiety; Bipolar disorder; Chronic pain; hemorrhoids; psychiatric; Seizures; iw - Immunization history:: Adult Immunizations unknown. - Social history:: Smoking status: Patient denies any tobacco usage or history of. Screenin:25 Abuse screen: Denies threats or abuse. Denies injuries from another. Nutritional iw screening: No deficits noted. Tuberculosis screening: No symptoms or risk factors identified. Fall Risk None identified. Assessment: 16:30 General: Appears in no apparent distress. Behavior is calm, cooperative. Pain: iw Complains of pain in head. Neuro: Level of Consciousness is awake, alert, obeys commands, Oriented to person, place, time, situation, Moves all extremities. Cardiovascular: Patient's skin is warm and dry. Respiratory: Respiratory effort is even, unlabored, Respiratory pattern is regular, symmetrical. GI: Reports nausea. Derm: Skin is intact, is healthy with good turgor. Musculoskeletal: Range of motion: intact in all extremities. Vital Signs: 17:12 BP 134 / 75; Pulse 78; Resp 16; Temp 98.2; Pulse Ox 100% on R/A; iw ED Course: 16:05 Patient arrived in ED. iw 16:06 Triage completed. iw 16:06 Arm band placed on. iw 16:15 Boris Olivera MD is Attending Physician. kdr 16:30 Patient has correct armband on for positive identification. iw 17:12 Laila Foreman, RN is Primary Nurse. iw 18:28 No provider procedures requiring assistance completed. Patient did not have IV access iw during this emergency room visit. Administered Medications: No medications were administered Outcome: 17:54 Discharge ordered by . kdr 18:28 Discharged to home ambulatory. iw 18:28 Condition: good 18:28 Discharge instructions given to patient, Instructed on discharge instructions, follow up and referral plans. Demonstrated understanding of instructions, follow-up care. 18:29 Patient left the ED. iw Signatures: Boris Olivera MD MD kdr Laila Foreman, RN RN iw
--- NOTE | 2020-01-21 17:55 | EDPHYS ---
Physician Documentation [facility] Name: Sidra Hodges Age: 44 yrs Sex: Female : 1975 Arrival Date: 01/21/2020 Time: 16:05 Bed 23 Private MD: ED Physician Boris Olivera HPI: 01/21 11:02 This 44 yrs old Female presents to ER via EMS with complaints of Nsausea. kdr 11:02 The patient presents to the ED multiple times a day for little or no complaints. Onset: kdr The symptoms/episode began/occurred at an unknown time. Severity of symptoms: At their worst the symptoms were None known. The patient has experienced similar episodes in the past, chronically. The patient has been recently seen at the [facility] Emergency Department, just prior to arrival, today. Historical: - Allergies: 01/20 16:06 NKA; iw - PMHx: 16:06 ADD/ADHD; Anxiety; Bipolar disorder; Chronic pain; hemorrhoids; psychiatric; Seizures; iw - Immunization history:: Adult Immunizations unknown. - Social history:: Smoking status: Patient denies any tobacco usage or history of. ROS: 01/21 11:02 Constitutional: Negative for fever, chills, and weight loss. kdr Unable to obtain ROS due to patient being uncooperative. Exam: 11:02 Constitutional: This is a well developed, well nourished patient who is awake, alert, kdr and in no acute distress. Head/Face: Normocephalic, atraumatic. Eyes: Pupils equal round and reactive to light, extra-ocular motions intact. Lids and lashes normal. Conjunctiva and sclera are non-icteric and not injected. Cornea within normal limits. Periorbital areas with no swelling, redness, or edema. Chest/axilla: Normal chest wall appearance and motion. Nontender with no deformity. No lesions are appreciated. Abdomen/GI: Soft, non-tender, with normal bowel sounds. No distension or tympany. No guarding or rebound. No evidence of tenderness throughout. Skin: Warm, dry with normal turgor. Normal color with no rashes, no lesions, and no evidence of cellulitis. MS/ Extremity: Pulses equal, no cyanosis. Neurovascular intact. Full, normal range of motion. 11:02 Psych: Behavior/mood is pleasant, uncooperative, inappropriate for age, Affect is flat, animated, Not oriented to person place, time, Patient has no thoughts/intents to harm self or others. Judgement / Insight is impaired. Delusions/hallucinations Unknown. Vital Signs: 01/20 17:12 BP 134 / 75; Pulse 78; Resp 16; Temp 98.2; Pulse Ox 100% on R/A; iw MDM: 17:54 Patient medically screened. kdr 01/21 11:02 Data reviewed: vital signs, nurses notes. Counseling: I had a detailed discussion with kdr the patient and/or guardian regarding: the historical points, exam findings, and any diagnostic results supporting the discharge/admit diagnosis, lab results, radiology results, the need for outpatient follow up. Administered Medications: No medications were administered Disposition: 01/21/20 17:54 Discharged to Home. Impression: Nausea. - Condition is Stable. - Discharge Instructions: Nausea and Vomiting, Adult. - Medication Reconciliation Form, Thank You Letter form. - Follow up: Private Physician; When: 2 - 3 days; Reason: If symptoms return, Further diagnostic work-up, Recheck today's complaints, Continuance of care, Re-evaluation by your physician. - Problem is new. - Symptoms are resolved. Signatures: Boris Olivera MD MD kdr Laila Foreman RN RN iw Corrections: (The following items were deleted from the chart) 01/20 18:29 17:54 01/21/2020 17:54 Discharged to Home. Impression: Nausea. Condition is Stable. iw Forms are Medication Reconciliation Form, Thank You Letter, Antibiotic Education, Prescription Opioid Use. Follow up: Private Physician; When: 2 - 3 days; Reason: If symptoms return, Further diagnostic work-up, Recheck today's complaints, Continuance of care, Re-evaluation by your physician. Problem is new. Symptoms are resolved. kdr
[2020-01-21 18:40] VITALS: BP 134/75; TEMP 98.2; O2SAT 100
== END 2020-01-21 18:29 | disposition home or self-care (01) ==
LOC: ER 16:00
DX: R11.0 Nausea (principal); F31.9 Bipolar disorder, unspecified
CPT/HCPCS: 99283

== ENCOUNTER 2020-03-09 12:12 | Emergency (ER) | payer SELFPAY ==
--- OUTSIDE RECORDS SUMMARY | 2020-03-09 12:14 | XMS REPORT | Continuity of Care Document ---
:1975 Author Organization [facility] t Address [address] [place] [address] Care Team Providers Name Role Phone Marissa [...] Department ID 2019-12-15 2019-12-15 Emergency [place]p [place] [facility] [id number] 17:11:56 18:04:00 Marissa Gonzalez [id number] [place] [id number] [place] [id number] 2019-10-25 2019-10-25 Emergency YUDITH Ballesteros [id number] 18:31:31 19:21:00 Dwaine Gonzalez [id number] [place] [id number] [place] [id number] 2019-08-13 2019-08-13 Emergency [place], [facility] [id number] 13:30:00 14:36:00 Jerry Gonzalez [id number] [place] [id number] [place] [id number] 2019-07-22 2019-07-22 Emergency Unknown, Attending TRAUMA [id number] 13:42:11 19:02:00 Lisa Morfin [facility] [id number] [id number] [id number] 2019-01-21 2019-01-21 Emergency [facility], [facility] [id number] 18:38:01 19:59:00 Le Gonzalez [id number] [place] [id number] [place] [address] [id number] Results Test Description Test Time Test Comments Results Result Comments Source Valproic Acid Level 2019-01-12 08:03:22 Test Item Value Reference Range Interpretation Comme nts Valproic Acid Level (test code = Valproic Acid Level) 57.6 ug/mL(g) 50.0-100.0 Hemoglobin [id number] 09:36:00 Test Item Value Reference Range Interpretation Comments Hemoglobin A1c (test code 5.0 % 4.8-5.9 No n Diabetic = Hemoglobin A1c) 4.8-5.9%Di abetic <7.0% CT Shoulder w/o Contrast [id number] 16:49:13Patient: BHUMIKA JONES Date/Time01/09/2019 16:14 CDTReason for [...] Adam FSigned (Electronic Signature): 01/09/2019 4:49 pmRPR [id number] 21:33:20 Test Item Value Reference Range Interpretation [...] Expiration Dt) XR Shoulder Complete 2+ Views [id number] 15:41:25Patient: BHUMIKA JONES Date/Time01/07/2019 15:25 CDTReason for [...] CSigned (Electronic Signature): 01/07/2019 3:41 pmThyroid Stimulating [id number] 03:07:04 Test Item Value Reference Range Interpretation Comments TSH (test code = TSH) 9.650 mIU/mL 0.270-4.200 H Lipid [id number] 03:07:03 Test Item Value Reference Range Interpretation Comments Cholesterol Total 199 mg/dL 0-200 RISK OF HE ART (test code = DISEASEPublishe d by Cholesterol Total) [place] [employer] [place] Optimal Borderl ine [...] LDL/HDL Ratio=L DL Calc/HDL Chol HCG Qualitative [id number] 02:33:13 Test Item Value Reference Range Interpretation Comments HCG, Serum Qual (test code = HCG, Negative Serum Qual) Lot # (test code = Lot #) [id number] N Expiration Dt (test code = 2020-04-23 N Expiration Dt) Neg Control (test code = Neg Negative Control) Pos Control (test code = Pos Positive Control) Internal QC (test code = Internal Acceptable QC) Drugs of Abuse Urine [id number] 18:58:11 Test Item Value Reference Range Interpretation [...] (test code = Cannabinoid Screen Ur) Alcohol [id number] 18:47:34 Test Item Value Reference Range Interpretation Comments Ethanol Level (test <0.00 g/dL 0.00-0.01 Intoxica isabel 0.080 g/dL code = Ethanol or more Level) Ethanol Inst (test <0 N code = Ethanol Inst) Comprehensive Metabolic [id number] 18:47:33 Test Item Value Reference Range Interpretation [...] A/G 1.0 ratio N Ratio) Comprehensive Metabolic [id number] 18:47:33 Test Item Value Reference Range Interpretation [...] National Kidney Foundation, http://nkdep.ni h.gov Comprehensive Metabolic [id number] 18:47:33 Test Item Value Reference Range Interpretation [...] ag e have not been validated by [facility] MDRD study and should be interpreted wit [...] ag e have not been validated by [facility] MDRD study and should be interpreted wit h caution. eGFR R esult Interpretation: eGFR > or = 60 is in the Normal RangeeGF R < 60 may mean kid betzaida diseaseeGFR < 1 5 may mean kidney failure Rang es recommended by the National Kidney Foundation, http://nkdep.[facility].gov Complete Blood Count with [id number] 18:15:23 Test Item Value Reference Range Interpretation [...] code = IPF) 0 % N Automated [id number] 18:15:23 Test Item Value Reference Range Interpretation Comments Neutro Auto (test code = Neutro 42.1 % 36.0-70.0 Auto) Lymph Auto (test code = Lymph Auto) 40.0 % 12.0-44.0 [place] Auto (test code = [place]hi Auto) 12.2 % 0.0-11.0 H Eos, Auto (test code = Eos, Auto) 4.9 % 0.0-7.0 Basophil Auto (test code = Basophil 0.6 % 0.0-2.0 Auto) Neutro Absolute (test code = Neutro 2.2 x10 1.6-7.4 Absolute) Lymph Absolute (test code = Lymph 2.06 x10 .50-4.60 Absolute) [place]hi Absolute (test code = [place]hi .63 x10 .00-1.20 Absolute) Eos Absolute (test code = Eos 0.25 x10 0.00-0.74 Absolute) Baso Absolute (test code = Baso 0.03 x10 0.00-0.21 Absolute) IG [id number] 18:15:23 Test Item Value Reference Range Interpretation Comments IG (test code = IG) 0.2 % 0.0-5.0 IG Abs (test code = IG Abs) 0 x10 N
--- NOTE | 2020-03-09 12:46 | ER ---
Nurse's Notes [facility] Name: Sidra Hodges Age: 45 yrs Sex: Female : 1975 Arrival Date: 03/09/2020 Time: 12:13 Bed 5 Private MD: Diagnosis: Homelessness Presentation: 03/09 12:15 Chief complaint: EMS states: was dropped off by bystanders at the EMS station stating sv she was hungry. No other complaints. Coronavirus screen: Client denies travel out of the [place] in the last 14 days. At this time, the client does not indicate any symptoms associated with coronavirus-19. Ebola Screen: No symptoms or risks identified at this time. Initial Sepsis Screen: Does the patient meet any 2 criteria? No. Patient's initial sepsis screen is negative. Does the patient have a suspected source of infection? No. Patient's initial sepsis screen is negative. Risk Assessment: Do you want to hurt yourself or someone else? Patient reports no desire to harm self or others. Onset of symptoms was March 09, 2020. 12:15 Method Of Arrival: EMS: [facility] sv 12:15 Acuity: CARMITA 5 sv Triage Assessment: 12:16 General: Appears in no apparent distress. comfortable, Behavior is calm, cooperative, sv appropriate for age. Pain: Denies pain. Neuro: Level of Consciousness is awake, alert, obeys commands, Oriented to person, place, time, situation, Moves all extremities. Full function. Respiratory: Respiratory effort is even, unlabored, Respiratory pattern is regular, symmetrical. Derm: Skin is pink, warm \T\ dry. Historical: - Allergies: 12:16 NKA; sv - PMHx: 12:16 ADD/ADHD; Anxiety; Bipolar disorder; Chronic pain; hemorrhoids; psychiatric; Seizures; sv - Immunization history:: Adult Immunizations unknown. - Social history:: Smoking status: unknown. - Family history:: not pertinent. - Hospitalizations: : No recent hospitalization is reported. Screenin:17 Abuse screen: Denies threats or abuse. Denies injuries from another. Nutritional sv screening: No deficits noted. Tuberculosis screening: No symptoms or risk factors identified. Fall Risk None identified. Assessment: 12:20 General: SEE TRIAGE ASSESSMENT. hb Vital Signs: 12:15 BP 122 / 69; Pulse 74; Resp 18; Temp 98; Pulse Ox 99% ; sv 12:35 BP 114 / 69; Pulse 64; Resp 16; Pulse Ox 100% on R/A; hb ED Course: 12:13 Patient arrived in ED. bd 12:14 Samantha Pitts, RN is Primary Nurse. sv 12:16 Triage completed. sv 12:16 Arm band placed on. sv 12:17 ED physician to see patient. sv 12:17 Patient has correct armband on for positive identification. Bed in low position. Call sv light in reach. Pulse ox on. NIBP on. 12:18 Yong Banks MD is Attending Physician. rn 12:55 No provider procedures requiring assistance completed. Patient did not have IV access sv during this emergency room visit. Administered Medications: No medications were administered Outcome: 12:45 Discharge ordered by . rn 12:55 Patient left the ED. hb 12:55 Discharged to home ambulatory, pt left before signing paperwork sv 12:55 Condition: stable 12:55 Instructed on Signatures: Dorcas Powell Samantha Pitts, RN RN Yong Banks MD MD rn Baxter, Heather, RN RN hb
--- NOTE | 2020-03-09 12:46 | EDPHYS ---
Physician Documentation [facility] Name: Sidra Hodges Age: 45 yrs Sex: Female : 1975 Arrival Date: 03/09/2020 Time: 12:13 Bed 5 Private MD: ED Physician Yong Banks HPI: 03/09 12:19 This 45 yrs old Female presents to ER via EMS with complaints of Hungry. rn 12:19 EMS reports found on side of road by 2 people, not sure what was going on, so led her rn to EMS station, where patient denied medical complaint. Stated she is homeless, hungry, and thirsty, not sure where her family is. . Onset: The symptoms/episode began/occurred at an unknown time. Severity of symptoms: At their worst the symptoms were mild in the emergency department the symptoms are unchanged. It is unknown whether or not the patient has had similar symptoms in the past. Historical: - Allergies: 12:16 NKA; sv - PMHx: 12:16 ADD/ADHD; Anxiety; Bipolar disorder; Chronic pain; hemorrhoids; psychiatric; Seizures; sv - Immunization history:: Adult Immunizations unknown. - Social history:: Smoking status: unknown. - Family history:: not pertinent. - Hospitalizations: : No recent hospitalization is reported. ROS: 12:19 Constitutional: Negative for fever, chills, and weight loss, Eyes: Negative for injury, rn pain, redness, and discharge, Cardiovascular: Negative for chest pain, palpitations, and edema, Respiratory: Negative for shortness of breath, cough, wheezing, and pleuritic chest pain, Abdomen/GI: Negative for abdominal pain, nausea, vomiting, diarrhea, and constipation, Back: Negative for injury and pain, MS/Extremity: Negative for injury and deformity, Skin: Negative for injury, rash, and discoloration, Neuro: Negative for headache, weakness, numbness, tingling, and seizure. Exam: 12:19 Constitutional: This is a well developed, well nourished patient who is awake, alert, rn and in no acute distress. Ambulatory without assistance. Head/Face: Normocephalic, atraumatic. Cardiovascular: Regular rate and rhythm. No pulse deficits. Respiratory: No increased work of breathing, no retractions or nasal flaring. Abdomen/GI: Soft, non-tender Skin: Warm, dry MS/ Extremity: Pulses equal, no cyanosis. Neurovascular intact. Full, normal range of motion. Equal circumference. Neuro: Awake and alert, GCS 15, oriented to person, place, time, and situation. Cranial nerves II-XII grossly intact. Motor strength 5/5 in all extremities. Sensory grossly intact. Cerebellar exam normal. Normal gait. Vital Signs: 12:15 BP 122 / 69; Pulse 74; Resp 18; Temp 98; Pulse Ox 99% ; sv 12:35 BP 114 / 69; Pulse 64; Resp 16; Pulse Ox 100% on R/A; hb MDM: 12:18 Patient medically screened. rn 12:43 Differential Diagnosis homelessness. Data reviewed: vital signs, nurses notes, and as a rn result, I will discharge patient. Counseling: I had a detailed discussion with the patient and/or guardian regarding: the historical points, exam findings, and any diagnostic results supporting the discharge/admit diagnosis, the need for outpatient follow up, to return to the emergency department if symptoms worsen or persist or if there are any questions or concerns that arise at home. ED course: Pt asking for help to pay her bills, we ordered her food and gave her water, she wants to leave if we can't give her money.. 03/09 12:13 Order name: Diet Regular; Complete Time: 12:14 bd Administered Medications: No medications were administered Disposition: 03/09/20 12:45 Discharged to Home. Impression: Homelessness. - Condition is Stable. - Medication Reconciliation Form, Thank You Letter, Antibiotic Education, Prescription Opioid Use form. - Follow up: Private Physician; When: As needed; Reason: Recheck today's complaints, Re-evaluation by your physician. - Problem is an ongoing problem. - Symptoms are unchanged. Signatures: Samantha Pitts RN RN Yong Banks MD MD rn Baxter, Heather, RN RN Corrections: (The following items were deleted from the chart) 12:55 12:45 03/09/2020 12:45 Discharged to Home. Impression: Homelessness. Condition is hb Stable. Forms are Medication Reconciliation Form, Thank You Letter, Antibiotic Education, Prescription Opioid Use. Follow up: Private Physician; When: As needed; Reason: Recheck today's complaints, Re-evaluation by your physician. Problem is an ongoing problem. Symptoms are unchanged. rn
[2020-03-09 13:01] VITALS: TEMP 98
[2020-03-09 13:02] VITALS: BP 114/69; O2SAT 100
== END 2020-03-09 12:55 | disposition home or self-care (01) ==
LOC: ER 12:12
DX: Z59.0 Homelessness (principal); F31.9 Bipolar disorder, unspecified
CPT/HCPCS: 99283

== ENCOUNTER 2020-03-15 12:33 | Emergency (ER) | payer SELFPAY ==
--- OUTSIDE RECORDS SUMMARY | 2020-03-15 12:35 | XMS REPORT | Continuity of Care Document ---
:1975 Author Organization [facility] t Address [address] [place] [address] Care Team Providers Name Role Phone Marissa [...] Department ID 2019-12-15 2019-12-15 Emergency Kp Gilliland [facility] [id number] 17:11:56 18:04:00 Marissa Gonzalez [id number] [place] [id number] [place] [id number] 2019-10-25 2019-10-25 Emergency YUDITH Ballesteros [id number] 18:31:31 19:21:00 Dwaine Gonzalez [id number] [place] [id number] [place] [id number] 2019-08-13 2019-08-13 Emergency [facility] [id number] 13:30:00 14:36:00 Jerry Gonzalez [id number] [place] [id number] [place] [id number] 2019-07-22 2019-07-22 Emergency Unknown, Attending TRAUMA [id number] 13:42:11 19:02:00 ShelbieLisa coon [facility] [id number] [id number] [id number] 2019-01-21 2019-01-21 Emergency [facility], [facility] [id number] 18:38:01 19:59:00 Le Gonzalez [id number] [place] [id number] [place] [address] [id number] Results Test Description Test Time Test Comments Results Result Comments Source Valproic Acid Level 2019-01-12 08:03:22 Test Item Value Reference Range Interpretation Comme nts Valproic Acid Level (test code = Valproic Acid Level) 57.6 ug/mL(g) 50.0-100.0 Hemoglobin [id number] 09:36:00 Test Item Value Reference Range Interpretation Comments Hemoglobin A1c (test code 5.0 % 4.8-5.9 No n Diabetic = Hemoglobin A1c) 4.8-5.9%Di abetic <7.0% CT Shoulder w/o Contrast [id number] 16:49:13Patient: BHUMIKA JONES Date/Time01/09/2019 16:14 CDTReason for [...] Adam FSigned (Electronic Signature): 01/09/2019 4:49 pmRPR [id number] 21:33:20 Test Item Value Reference Range Interpretation [...] Expiration Dt) XR Shoulder Complete 2+ Views [id number] 15:41:25Patient: BHUMIKA JONES Date/Time01/07/2019 15:25 CDTReason for [...] CSigned (Electronic Signature): 01/07/2019 3:41 pmThyroid Stimulating [id number] 03:07:04 Test Item Value Reference Range Interpretation Comments TSH (test code = TSH) 9.650 mIU/mL 0.270-4.200 H Lipid [id number] 03:07:03 Test Item Value Reference Range Interpretation Comments Cholesterol Total 199 mg/dL 0-200 RISK OF HE ART (test code = DISEASEPublishe d by Cholesterol Total) [place] [employer] [place] Optimal Borderl ine [...] LDL/HDL Ratio=L DL Calc/HDL Chol HCG Qualitative [id number] 02:33:13 Test Item Value Reference Range Interpretation Comments HCG, Serum Qual (test code = HCG, Negative Serum Qual) Lot # (test code = Lot #) [id number] Expiration Dt (test code = 2020-04-23 N Expiration Dt) Neg Control (test code = Neg Negative Control) Pos Control (test code = Pos Positive Control) Internal QC (test code = Internal Acceptable QC) Drugs of Abuse Urine [id number] 18:58:11 Test Item Value Reference Range Interpretation [...] (test code = Cannabinoid Screen Ur) Alcohol [id number] 18:47:34 Test Item Value Reference Range Interpretation Comments Ethanol Level (test <0.00 g/dL 0.00-0.01 Intoxica isabel 0.080 g/dL code = Ethanol or more Level) Ethanol Inst (test <0 N code = Ethanol Inst) Comprehensive Metabolic [id number] 18:47:33 Test Item Value Reference Range Interpretation [...] A/G 1.0 ratio N Ratio) Comprehensive Metabolic [id number] 18:47:33 Test Item Value Reference Range Interpretation [...] National Kidney Foundation, http://nkdep.ni h.gov Comprehensive Metabolic [id number] 18:47:33 Test Item Value Reference Range Interpretation [...] ag e have not been validated by [facility] MDRD study and should be interpreted [...] ag e have not been validated by [facility] MDRD study and should be interpreted wit h caution. eGFR R esult Interpretation: eGFR > or = 60 is in the Normal RangeeGF R < 60 may mean kid betzaida diseaseeGFR < 1 5 may mean kidney failure Rang es recommended by the National Kidney Foundation, http://nkdep.ni h.gov Complete Blood Count with [id number] 18:15:23 Test Item Value Reference Range Interpretation [...] code = IPF) 0 % N Automated [id number] 18:15:23 Test Item Value Reference Range Interpretation Comments Neutro Auto (test code = Neutro 42.1 % 36.0-70.0 Auto) Lymph Auto (test code = Lymph Auto) 40.0 % 12.0-44.0 Dickens Auto (test code = Dickens Auto) 12.2 % 0.0-11.0 H Eos, Auto (test code = Eos, Auto) 4.9 % 0.0-7.0 Basophil Auto (test code = Basophil 0.6 % 0.0-2.0 Auto) Neutro Absolute (test code = Neutro 2.2 x10 1.6-7.4 Absolute) Lymph Absolute (test code = Lymph 2.06 x10 .50-4.60 Absolute) Dickens Absolute (test code = Dickens .63 x10 .00-1.20 Absolute) Eos Absolute (test code = Eos 0.25 x10 0.00-0.74 Absolute) Baso Absolute (test code = Baso 0.03 x10 0.00-0.21 Absolute) IG [id number] 18:15:23 Test Item Value Reference Range Interpretation Comments IG (test code = IG) 0.2 % 0.0-5.0 IG Abs (test code = IG Abs) 0 x10 N
--- NOTE | 2020-03-15 13:32 | EDPHYS ---
Physician Documentation [facility] Name: Sidra Hodges Age: 45 yrs Sex: Female : 1975 Arrival Date: 03/15/2020 Time: 12:35 Bed 19 Private MD: ED Physician Yong Banks HPI: 03/15 13:45 This 45 yrs old Female presents to ER via EMS with complaints of anxiety. kb 13:45 The patient presents to the emergency department with anxiety. Onset: The kb symptoms/episode began/occurred today. Associated signs and symptoms: Pertinent positives; anxiety, Pertinent negatives: abdominal pain, chest pain, chills, delusions, depression, fever, hallucinations, headache, homicidal ideation, nausea, night sweats, palpitations, paranoia, shortness of breath, substance abuse, suicide ideation, tremor, vomiting. Severity of symptoms: At their worst the symptoms were moderate in the emergency department the symptoms are unchanged. The patient has experienced similar episodes in the past, multiple times. The patient has been recently seen at the [facility] Emergency Department. Pt reports she had an anxiety attack because she doesn't have money for food or a place to stay. EMS reports she gave them an address in [place] that she wanted them to take her to. . QUESTIONED DOCUMENTS EXAMINER: 13:47 pt did not answer question about LMP jd3 Historical: - Allergies: 13:04 NKA; em - Home Meds: 13:04 divalproex 500 mg Oral TbEC [Active]; Risperdal 3 mg Oral tab [Active]; em - PMHx: 13:04 ADD/ADHD; Anxiety; Bipolar disorder; Chronic pain; hemorrhoids; psychiatric; Seizures; em - Immunization history:: Adult Immunizations unknown. - Social history:: Smoking status: Patient denies any tobacco usage or history of. ROS: 13:43 Constitutional: Negative for fever, chills, and weight loss, Cardiovascular: Negative kb for chest pain, palpitations, and edema, Respiratory: Negative for shortness of breath, cough, wheezing, and pleuritic chest pain, Abdomen/GI: Negative for abdominal pain, nausea, vomiting, diarrhea, and constipation, Back: Negative for injury and pain, MS/Extremity: Negative for injury and deformity, Skin: Negative for injury, rash, and discoloration, Neuro: Negative for headache, weakness, numbness, tingling, and seizure. 13:43 Psych: Positive for anxiety, Negative for depression, drug dependence, alcohol dependence, auditory hallucinations, visual hallucinations, homicidal ideation, insomnia, suicide gesture, suicidal ideation. Exam: 13:43 Constitutional: This is a well developed, well nourished patient who is awake, alert, kb and in no acute distress. Head/Face: Normocephalic, atraumatic. Chest/axilla: Normal chest wall appearance and motion. Nontender with no deformity. No lesions are appreciated. Cardiovascular: Regular rate and rhythm with a normal S1 and S2. No gallops, murmurs, or rubs. Normal PMI, no JVD. No pulse deficits. Respiratory: Lungs have equal breath sounds bilaterally, clear to auscultation and percussion. No rales, rhonchi or wheezes noted. No increased work of breathing, no retractions or nasal flaring. Abdomen/GI: Soft, non-tender, with normal bowel sounds. No distension or tympany. No guarding or rebound. No evidence of tenderness throughout. Skin: Warm, dry with normal turgor. Normal color with no rashes, no lesions, and no evidence of cellulitis. MS/ Extremity: Pulses equal, no cyanosis. Neurovascular intact. Full, normal range of motion. Neuro: Awake and alert, GCS 15, oriented to person, place, time, and situation. Cranial nerves II-XII grossly intact. Motor strength 5/5 in all extremities. Sensory grossly intact. Cerebellar exam normal. Normal gait. 13:43 Psych: Behavior/mood is cooperative, anxious, Affect is animated, Oriented to person, place, time, Patient has no thoughts/intents to harm self or others. Vital Signs: 13:00 BP 121 / 94; Pulse 87; Resp 18; Temp 97.7(O); Pulse Ox 97% on R/A; Pain 7/10; em MDM: 13:01 Patient medically screened. kb 13:45 Data reviewed: vital signs, nurses notes. Data interpreted: Pulse oximetry: on room air kb is 97 %. Interpretation: normal. Counseling: I had a detailed discussion with the patient and/or guardian regarding: the historical points, exam findings, and any diagnostic results supporting the discharge/admit diagnosis, the need for outpatient follow up, a family practitioner, to return to the emergency department if symptoms worsen or persist or if there are any questions or concerns that arise at home. 13:45 ED course: pt refused ekg. kb Administered Medications: No medications were administered Disposition: 03/15/20 13:31 Discharged to Home. Impression: Anxiety disorder, unspecified. - Condition is Stable. - Discharge Instructions: Panic Attacks, [id number]. - Medication Reconciliation Form, Thank You Letter, Antibiotic Education, Prescription Opioid Use form. - Follow up: Private Physician; When: 2 - 3 days; Reason: Recheck today's complaints, Continuance of care, Re-evaluation by your physician. Follow up: Emergency Department; When: As needed; Reason: Worsening of condition. Addendum: 03/17/2020 07:14 Co-signature as Attending Physician, Yong Banks MD. r n Signatures: Cristina Sewell, CRAYON PAINTER-C CRAYON PAINTER-Florentin Rebolledo, RN Yong Cali MD MD rn Baxter, Heather, RN RN hb Corrections: (The following items were deleted from the chart) 03/15 13:32 13:20 EKG - Nurse/Tech ordered. kb ll2 13:40 13:31 03/15/2020 13:31 Discharged to Home. Impression: Anxiety disorder, unspecified. hb Condition is Stable. Forms are Medication Reconciliation Form, Thank You Letter, Antibiotic Education, Prescription Opioid Use. Follow up: Private Physician; When: 2 - 3 days; Reason: Recheck today's complaints, Continuance of care, Re-evaluation by your physician. Follow up: Emergency Department; When: As needed; Reason: Worsening of condition. kb
--- NOTE | 2020-03-15 13:32 | ER ---
Nurse's Notes [facility] Name: Sidra Hodges Age: 45 yrs Sex: Female : 1975 Arrival Date: 03/15/2020 Time: 12:35 Bed 19 Private MD: Diagnosis: Anxiety disorder, unspecified Presentation: 03/15 13:00 Chief complaint: EMS states: was brought in for having an anxiety attack about being em homeless, unable to pay for bills or food, pt points at epigastric/chest where it hurts. Coronavirus screen: Client denies travel out of the [place] in the last 14 days. Ebola Screen: Patient negative for fever greater than or equal to 101.5 degrees Fahrenheit, and additional compatible Ebola Virus Disease symptoms Patient denies exposure to infectious person. Patient denies travel to an Ebola-affected area in the 21 days before illness onset. No symptoms or risks identified at this time. Initial Sepsis Screen: Does the patient meet any 2 criteria? No. Patient's initial sepsis screen is negative. Does the patient have a suspected source of infection? No. Patient's initial sepsis screen is negative. Risk Assessment: Do you want to hurt yourself or someone else? Patient reports no desire to harm self or others. Onset of symptoms was March 15, 2020. 13:00 Method Of Arrival: EMS: [facility] em 13:00 Acuity: CARMITA 3 em Triage Assessment: 13:40 General: Appears in no apparent distress. uncomfortable, Behavior is calm, quiet. 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 - Social history:: Smoking status: Patient denies any tobacco usage or history of. Screenin:40 Abuse screen: Denies threats or abuse. Nutritional screening: No deficits noted. jd3 Tuberculosis screening: No symptoms or risk factors identified. Fall Risk Ambulatory Aid- None/Bed Rest/Nurse Assist (0 pts). Gait- Normal/Bed Rest/Wheelchair (0 pts) Mental Status- Oriented to own ability (0 pts). Total Davidson Fall Scale indicates No Risk (0-24 pts). Assessment: 13:40 Reassessment: pt refused EKG, refusing to cooperate with medical staff. General: jd3 Appears in no apparent distress. comfortable, Behavior is calm, quiet. Pain: Complains of pain in chest. Neuro: Level of Consciousness is awake, alert, Oriented to person, place, time, situation. Cardiovascular: Capillary refill < 3 seconds Patient's skin is warm and dry. Rhythm is pt refused EKG. Respiratory: Airway is patent Respiratory effort is even, unlabored, Respiratory pattern is regular, symmetrical. GI: No signs and/or symptoms were reported involving the gastrointestinal system. : No signs and/or symptoms were reported regarding the genitourinary system. EENT: No signs and/or symptoms were reported regarding the EENT system. Derm: Skin is intact, Skin is dry, Skin is normal, Skin temperature is warm. Musculoskeletal: Circulation, motion, and sensation intact. Range of motion: intact in all extremities. Vital Signs: 13:00 BP 121 / 94; Pulse 87; Resp 18; Temp 97.7(O); Pulse Ox 97% on R/A; Pain 7/10; em ED Course: 12:35 Patient arrived in ED. as 13:01 Cristina Sewell FNP-C [facility]. kb 13:01 Yong Banks MD is Attending Physician. kb 13:03 Triage completed. em 13:04 Arm band placed on. em 13:15 Berta Obrien, GERONIMO is Primary Nurse. ll2 13:40 No provider procedures requiring assistance completed. Patient did not have IV access jd3 during this emergency room visit. 13:47 Patient has correct armband on for positive identification. Call light in reach. Side jd3 rails up X 1. Administered Medications: No medications were administered Outcome: 13:31 Discharge ordered by . kb 13:40 Patient left the ED. hb 13:40 Discharged to home ambulatory. jd3 13:40 Condition: stable 13:40 Discharge instructions given to patient, Instructed on discharge instructions, follow up and referral plans. Demonstrated understanding of instructions, follow-up care. Signatures: Cristina Sewell FNP-C FNP-Florentin Rebolledo RN RN Jessica Astorga Heather, RN RN Dariusz Nunez, RN RN jd3 Berta Obrien RN RN ll2
[2020-03-15 13:45] VITALS: BP 121/94; TEMP 97.7; O2SAT 97
== END 2020-03-15 13:40 | disposition home or self-care (01) ==
LOC: ER 12:33
DX: F41.9 Anxiety disorder, unspecified (principal); F31.9 Bipolar disorder, unspecified
CPT/HCPCS: 93005; 99283

== ENCOUNTER 2020-03-20 12:52 | Emergency (ER) | payer SELFPAY ==
--- OUTSIDE RECORDS SUMMARY | 2020-03-20 12:55 | XMS REPORT | Continuity of Care Document ---
:1975 Author Organization [facility] t Address [address] [place] [address] Care Team Providers Name Role Phone Marissa [...] Department ID 2019-12-15 2019-12-15 Emergency Kp Gilliland [facility] [id number] 17:11:56 18:04:00 Marissa Gonzalez [id number] [place] [id number] [place] [id number] 2019-10-25 2019-10-25 Emergency YUDITH Ballesteros [id number] 18:31:31 19:21:00 Dwaine Gonzalez [id number] [place] 4.2.7.2.686 [place] [id number] 2019-08-13 2019-08-13 Emergency [place], [facility] [id number] 13:30:00 14:36:00 Jerry Gonzalez [id number] [place] [id number] [place] [id number] 2019-07-22 2019-07-22 Emergency Unknown, Attending TRAUMA [id number] 13:42:11 19:02:00 Lisa Morfin [facility] [id number] 4.2.7.2.68[facility] [id number] 2019-01-21 2019-01-[address] [facility], [facility] [id number] 18:38:01 19:59:00 Le Gonzalez [id number] [place] 4.2.7.2.686 [place] [address] [id number] [id number] Results Test Description Test Time Test Comments Results Result Comments Source Valproic Acid Level 2019-01-12 08:03:22 Test Item Value Reference Range Interpretation Comme nts Valproic Acid Level (test code = Valproic Acid Level) 57.6 ug/mL(g) 50.0-100.0 Hemoglobin [id number] 09:36:00 Test Item Value Reference Range Interpretation Comments Hemoglobin A1c (test code 5.0 % 4.8-5.9 No n Diabetic = Hemoglobin A1c) 4.8-5.9%Di abetic <7.0% CT Shoulder w/o Contrast [id number] 16:49:13Patient: BHUMIKA JONES Date/Time01/09/2019 16:14 CDTReason for [...] Adam FSigned (Electronic Signature): 01/09/2019 4:49 pmRPR [id number] 21:33:20 Test Item Value Reference Range Interpretation [...] Expiration Dt) XR Shoulder Complete 2+ Views [id number] 15:41:25Patient: BHUMIKA JONES Date/Time01/07/2019 15:25 CDTReason for [...] CSigned (Electronic Signature): 01/07/2019 3:41 pmThyroid Stimulating [id number] 03:07:04 Test Item Value Reference Range Interpretation Comments TSH (test code = TSH) 9.650 mIU/mL 0.270-4.200 H Lipid [id number] 03:07:03 Test Item Value Reference Range Interpretation Comments Cholesterol Total 199 mg/dL 0-200 RISK OF HE ART (test code = DISEASEPublishe d by Cholesterol Total) [place] [employer] [place] Optimal Borderl ine [...] LDL/HDL Ratio=L DL Calc/HDL Chol HCG Qualitative [id number] 02:33:13 Test Item Value Reference Range Interpretation Comments HCG, Serum Qual (test code = HCG, Negative Serum Qual) Lot # (test code = Lot #) [id number] N Expiration Dt (test code = 2020-04-23 N Expiration Dt) Neg Control (test code = Neg Negative Control) Pos Control (test code = Pos Positive Control) Internal QC (test code = Internal Acceptable QC) Drugs of Abuse Urine [id number] 18:58:11 Test Item Value Reference Range Interpretation [...] (test code = Cannabinoid Screen Ur) Alcohol [id number] 18:47:34 Test Item Value Reference Range Interpretation Comments Ethanol Level (test <0.00 g/dL 0.00-0.01 Intoxica isabel 0.080 g/dL code = Ethanol or more Level) Ethanol Inst (test <0 N code = Ethanol Inst) Comprehensive Metabolic [id number] 18:47:33 Test Item Value Reference Range Interpretation [...] A/G 1.0 ratio N Ratio) Comprehensive Metabolic [id number] 18:47:33 Test Item Value Reference Range Interpretation [...] National Kidney Foundation, http://nkdep.ni h.gov Comprehensive Metabolic [id number] 18:47:33 Test Item Value Reference Range Interpretation [...] ag e have not been validated by [facility] MDRD study and should be interpreted [...] ag e have not been validated by [facility] MDRD study and should be interpreted wit h caution. eGFR R esult Interpretation: eGFR > or = 60 is in the Normal RangeeGF R < 60 may mean kid betzaida diseaseeGFR < 1 5 may mean kidney failure Rang es recommended by the National Kidney Foundation, http://nkdep.[facility].gov Complete Blood Count with [id number] 18:15:23 Test Item Value Reference Range Interpretation [...] code = IPF) 0 % N Automated [id number] 18:15:23 Test Item Value Reference Range Interpretation Comments Neutro Auto (test code = Neutro 42.1 % 36.0-70.0 Auto) Lymph Auto (test code = Lymph Auto) 40.0 % 12.0-44.0 [place] Auto (test code = [place] Auto) 12.2 % 0.0-11.0 H Eos, Auto (test code = Eos, Auto) 4.9 % 0.0-7.0 Basophil Auto (test code = Basophil 0.6 % 0.0-2.0 Auto) Neutro Absolute (test code = Neutro 2.2 x10 1.6-7.4 Absolute) Lymph Absolute (test code = Lymph 2.06 x10 .50-4.60 Absolute) [place] Absolute (test code = [place] .63 x10 .00-1.20 Absolute) Eos Absolute (test code = Eos 0.25 x10 0.00-0.74 Absolute) Baso Absolute (test code = Baso 0.03 x10 0.00-0.21 Absolute) IG [id number] 18:15:23 Test Item Value Reference Range Interpretation Comments IG (test code = IG) 0.2 % 0.0-5.0 IG Abs (test code = IG Abs) 0 x10 N
--- NOTE | 2020-03-20 13:00 | EDPHYS ---
Physician Documentation [facility] Name: Sidra Hodges Age: 45 yrs Sex: Female : 1975 Arrival Date: 03/20/2020 Time: 12:53 Bed 18 Private MD: ED Physician Boris Olivera HPI: 03/20 12:57 This 45 yrs old Female presents to ER via EMS with complaints of LIVING pm1 SITUATION. 12:57 Onset: The symptoms/episode began/occurred today. Associated signs and symptoms: The pm1 patient has no apparent associated signs or symptoms. It is unknown whether or not the patient has recently seen a physician. Patient presented to the ER by EMS because she is not happy with the new place that she is living. Patient moved to a new location of the replaced by [facility] with her mother. Patient does not have any other complaints. Historical: - Allergies: 12:55 NKA; bp - Home Meds: 12:55 divalproex 500 mg Oral TbEC [Active]; Risperdal 3 mg Oral tab [Active]; bp - PMHx: 12:55 ADD/ADHD; Anxiety; Bipolar disorder; Chronic pain; hemorrhoids; psychiatric; Seizures; bp - Immunization history:: Adult Immunizations unknown. - Social history:: Smoking status: Patient denies any tobacco usage or history of. ROS: 12:57 Constitutional: Negative for fever, chills, and weight loss, Cardiovascular: Negative pm1 for chest pain, palpitations, and edema, Respiratory: Negative for shortness of breath, cough, wheezing, and pleuritic chest pain, Abdomen/GI: Negative for abdominal pain, nausea, vomiting, diarrhea, and constipation, Back: Negative for injury and pain, MS/Extremity: Negative for injury and deformity, Skin: Negative for injury, rash, and discoloration, Neuro: Negative for headache, weakness, numbness, tingling, and seizure. 12:57 Psych: Negative for homicidal ideation, suicidal ideation. Exam: 12:57 Constitutional: This is a well developed, well nourished patient who is awake, alert, pm1 and in no acute distress. Head/Face: Normocephalic, atraumatic. 12:57 Skin: Warm, dry with normal turgor. Normal color with no rashes, no lesions, and no evidence of cellulitis. MS/ Extremity: Pulses equal, no cyanosis. Neurovascular intact. Full, normal range of motion. 12:57 Cardiovascular: Exam negative for acute changes, Rate: normal, Rhythm: regular, Pulses: no pulse deficits are appreciated. 12:57 Respiratory: Exam negative for acute changes, respiratory distress, shortness of breath. 12:57 Abdomen/GI: Exam negative for acute changes, Inspection: abdomen appears normal, Palpation: abdomen is soft and non-tender, in all quadrants. 12:57 Neuro: Exam negative for acute changes, Orientation: is normal, Mentation: is normal, Motor: is normal, moves all fours, Sensation: is normal, no obvious gross deficits. Vital Signs: 12:55 BP 128 / 85; Pulse 74; Resp 16; Temp 98; Pulse Ox 98% ; bp MDM: 12:57 Counseling: I had a detailed discussion with the patient and/or guardian regarding: the pm1 historical points, exam findings, and any diagnostic results supporting the discharge/admit diagnosis, the need for outpatient follow up. 12:57 Data reviewed: vital signs. Data interpreted: Pulse oximetry: on room air is 98 %. pm1 Interpretation: normal. Administered Medications: No medications were administered Disposition: 14:53 Co-signature as Attending Physician, Boris Olivera MD I agree with the assessment and kdr plan of care. Disposition: 03/20/20 12:59 Discharged to Home. Impression: Other problems related to housing and economic circumstances. - Condition is Stable. - Discharge Instructions: Stress and Stress Management. - Medication Reconciliation Form, Thank You Letter, Antibiotic Education, Prescription Opioid Use form. - Follow up: Emergency Department; When: As needed; Reason: Worsening of condition. Follow up: Private Physician; When: 2 - 3 days; Reason: Recheck today's complaints, Continuance of care, Re-evaluation by your physician. - Problem is new. - Symptoms are unchanged. Signatures: Boris Olivera MD MD [facility] Guero Yates NP [employer] OPERATOR pm1 Jose Jama RN RN bp Corrections: (The following items were deleted from the chart) 12:57 12:56 Patient medically screened. pm1 pm1 13:10 12:59 03/20/2020 12:59 Discharged to Home. Impression: Other problems related to bp housing and economic circumstances. Condition is Stable. Forms are Medication Reconciliation Form, Thank You Letter, Antibiotic Education, Prescription Opioid Use. Follow up: Emergency Department; When: As needed; Reason: Worsening of condition. Follow up: Private Physician; When: 2 - 3 days; Reason: Recheck today's complaints, Continuance of care, Re-evaluation by your physician. Problem is new. Symptoms are unchanged. pm1
--- NOTE | 2020-03-20 13:00 | ER ---
Nurse's Notes [facility] Name: Sidra Hodges Age: 45 yrs Sex: Female : 1975 Arrival Date: 03/20/2020 Time: 12:53 Bed 18 Private MD: Diagnosis: Other problems related to housing and economic circumstances Presentation: 03/20 12:55 Chief complaint: EMS states: CALLED BY [facility] FOR PT "NOT HAPPY WITH WHERE SHE'S bp LIVING". Coronavirus screen: At this time, the client does not indicate any symptoms associated with coronavirus-19. Ebola Screen: No symptoms or risks identified at this time. Initial Sepsis Screen: Does the patient meet any 2 criteria? No. Patient's initial sepsis screen is negative. Does the patient have a suspected source of infection? No. Patient's initial sepsis screen is negative. Risk Assessment: Do you want to hurt yourself or someone else? Patient reports no desire to harm self or others. Onset of symptoms is unknown. 12:55 Method Of Arrival: EMS: [facility] bp 12:55 Acuity: CARMITA 5 bp Triage Assessment: 12:55 General: Appears in no apparent distress. comfortable, obese, Behavior is cooperative, bp restless. Pain: Denies pain. EENT: No deficits noted. Neuro: Level of Consciousness is awake, alert, obeys commands, Oriented to person, place, time, situation. Cardiovascular: No deficits noted. Respiratory: No deficits noted. GI: No signs and/or symptoms were reported involving the gastrointestinal system. : No signs and/or symptoms were reported regarding the genitourinary system. Derm: No deficits noted. Musculoskeletal: No deficits noted. Historical: - Allergies: 12:55 NKA; bp - Home Meds: 12:55 divalproex 500 mg Oral TbEC [Active]; Risperdal 3 mg Oral tab [Active]; bp - PMHx: 12:55 ADD/ADHD; Anxiety; Bipolar disorder; Chronic pain; hemorrhoids; psychiatric; Seizures; bp - Immunization history:: Adult Immunizations unknown. - Social history:: Smoking status: Patient denies any tobacco usage or history of. Screenin:58 Abuse screen: Denies threats or abuse. Denies injuries from another. Nutritional bp screening: No deficits noted. Tuberculosis screening: No symptoms or risk factors identified. Fall Risk None identified. Assessment: 12:58 General: SEE TRIAGE NOTE. bp 13:09 Reassessment: PT D/C HOME AMBULATORY, NO SI/HI, AOx4, DX WITH STRESS MANAGEMENT. bp Vital Signs: 12:55 BP 128 / 85; Pulse 74; Resp 16; Temp 98; Pulse Ox 98% ; bp ED Course: 12:53 Patient arrived in ED. bp 12:56 Guero Yates NP is PHCP. pm1 12:56 Boris Olivera MD is Attending Physician. pm1 12:57 Triage completed. bp 12:58 Arm band placed on. bp 12:58 Patient has correct armband on for positive identification. Bed in low position. Call bp light in reach. Side rails up X2. 13:09 Jose Jama, RN is Primary Nurse. bp 13:09 No provider procedures requiring assistance completed. Patient did not have IV access bp during this emergency room visit. Administered Medications: No medications were administered Outcome: 12:59 Discharge ordered by MD. pm1 13:09 Discharged to home ambulatory. bp 13:09 Condition: stable 13:09 Discharge instructions given to patient, Instructed on discharge instructions, follow up and referral plans. Demonstrated understanding of instructions, follow-up care. 13:10 Patient left the ED. bp Signatures: Guero Yates NP DIRECTOR OF PERIOPERATIVE SERVICES pm1 Jose Jama, RN RN bp
[2020-03-20 13:42] VITALS: BP 128/85; TEMP 98; O2SAT 98
== END 2020-03-20 13:10 | disposition home or self-care (01) ==
LOC: ER 12:52
DX: Z59.8 Other problems related to housing and economic circumstances (principal); F31.9 Bipolar disorder, unspecified
CPT/HCPCS: 99283

== ENCOUNTER 2020-03-23 14:05 | Emergency (ER) | payer SELFPAY ==
--- OUTSIDE RECORDS SUMMARY | 2020-03-23 14:08 | XMS REPORT | Continuity of Care Document ---
:1975 Author Organization [facility] t Address [address] [place] [address] Care Team Providers Name Role Phone Marissa [...] Department ID 2019-12-15 2019-12-15 Emergency Kp Gilliland [facility] [id number] 17:11:56 18:04:00 Marissa Gonzalez [id number] [place] 4.2.7.2.686 [place] [id number] 2019-10-25 2019-10-25 Emergency YUDITH Ballesteros [id number] 18:31:31 19:21:00 Dwaine Gonzalez [id number] [place] 4.2.7.2.686 [place] [id number] 2019-08-13 2019-08-13 Emergency [place], [facility] [id number] 13:30:00 14:36:00 Jerry Gonzalez 350.1.13.10 [place] 4.2.7.2.686 [place] [id number] 2019-07-22 2019-07-22 Emergency Unknown, Attending TRAUMA [id number] 13:42:11 19:02:00 Lisa Morfin [facility] [id number] 4.2.7.2.68[facility] [id number] 2019-01-21 2019-01-21 Emergency [facility], [facility] [id number] 18:38:01 19:59:00 Le Gonzalez [id number] [place] 4.2.7.2.686 [place] [address] [id number] [id number] Results Test Description Test Time Test Comments Results Result Comments Source Valproic Acid Level 2019-01-12 08:03:22 Test Item Value Reference Range Interpretation Comme nts Valproic Acid Level (test code = Valproic Acid Level) 57.6 ug/mL(g) 50.0-100.0 Hemoglobin [id number] 09:36:00 Test Item Value Reference Range Interpretation Comments Hemoglobin A1c (test code 5.0 % 4.8-5.9 No n Diabetic = Hemoglobin A1c) 4.8-5.9%Di abetic <7.0% CT Shoulder w/o Contrast [id number] 16:49:13Patient: BHUMIKA JONES Date/Time01/09/2019 16:14 CDTReason for [...] Adam FSigned (Electronic Signature): 01/09/2019 4:49 pmRPR [id number] 21:33:20 Test Item Value Reference Range Interpretation [...] Expiration Dt) XR Shoulder Complete 2+ Views [id number] 15:41:25Patient: BHUMIKA JONES Date/Time01/07/2019 15:25 CDTReason for [...] CSigned (Electronic Signature): 01/07/2019 3:41 pmThyroid Stimulating [id number] 03:07:04 Test Item Value Reference Range Interpretation Comments TSH (test code = TSH) 9.650 mIU/mL 0.270-4.200 H Lipid [id number] 03:07:03 Test Item Value Reference Range Interpretation Comments Cholesterol Total 199 mg/dL 0-200 RISK OF HE ART (test code = DISEASEPublishe d by Cholesterol Total) [place] [employer] [place] Optimal Borderl ine [...] LDL/HDL Ratio=L DL Calc/HDL Chol HCG Qualitative [id number] 02:33:13 Test Item Value Reference Range Interpretation Comments HCG, Serum Qual (test code = HCG, Negative Serum Qual) Lot # (test code = Lot #) [id number] N Expiration Dt (test code = 2020-04-23 N Expiration Dt) Neg Control (test code = Neg Negative Control) Pos Control (test code = Pos Positive Control) Internal QC (test code = Internal Acceptable QC) Drugs of Abuse Urine [id number] 18:58:11 Test Item Value Reference Range Interpretation [...] (test code = Cannabinoid Screen Ur) Alcohol [id number] 18:47:34 Test Item Value Reference Range Interpretation Comments Ethanol Level (test <0.00 g/dL 0.00-0.01 Intoxica isabel 0.080 g/dL code = Ethanol or more Level) Ethanol Inst (test <0 N code = Ethanol Inst) Comprehensive Metabolic [id number] 18:47:33 Test Item Value Reference Range Interpretation [...] A/G 1.0 ratio N Ratio) Comprehensive Metabolic [id number] 18:47:33 Test Item Value Reference Range Interpretation [...] National Kidney Foundation, http://nkdep.ni h.gov Comprehensive Metabolic [id number] 18:47:33 Test Item Value Reference Range Interpretation [...] ag e have not been validated by [facility] MDRD study and should be [...] ag e have not been validated by [facility] MDRD study and should be interpreted wit h caution. eGFR R esult Interpretation: eGFR > or = 60 is in the Normal RangeeGF R < 60 may mean kid betzaida diseaseeGFR < 1 5 may mean kidney failure Rang es recommended by the National Kidney Foundation, http://nkdep.[facility].gov Complete Blood Count with [id number] 18:15:23 Test Item Value Reference Range Interpretation [...] code = IPF) 0 % N Automated [id number] 18:15:23 Test Item Value Reference Range Interpretation Comments Neutro Auto (test code = Neutro 42.1 % 36.0-70.0 Auto) Lymph Auto (test code = Lymph Auto) 40.0 % 12.0-44.0 [place] Auto (test code = [place] Auto) 12.2 % 0.0-11.0 H Eos, Auto (test code = Eos, Auto) 4.9 % 0.0-7.0 Basophil Auto (test code = Basophil 0.6 % 0.0-2.0 Auto) Neutro Absolute (test code = Neutro 2.2 x10 1.6-7.4 Absolute) Lymph Absolute (test code = Lymph 2.06 x10 .50-4.60 Absolute) [place] Absolute (test code = [place] .63 x10 .00-1.20 Absolute) Eos Absolute (test code = Eos 0.25 x10 0.00-0.74 Absolute) Baso Absolute (test code = Baso 0.03 x10 0.00-0.21 Absolute) IG [id number] 18:15:23 Test Item Value Reference Range Interpretation Comments IG (test code = IG) 0.2 % 0.0-5.0 IG Abs (test code = IG Abs) 0 x10 N
--- NOTE | 2020-03-23 14:25 | ER ---
Nurse's Notes [facility] Name: Sidra Hodges Age: 45 yrs Sex: Female : 1975 Arrival Date: 03/23/2020 Time: 14:06 Bed 7 Private MD: Diagnosis: Anxiety disorder, unspecified Presentation: 03/23 14:07 Chief complaint: EMS states: called EMS for hands shaking. Coronavirus screen: Client sv denies travel out of the [place] in the last 14 days. At this time, the client does not indicate any symptoms associated with coronavirus-19. Ebola Screen: No symptoms or risks identified at this time. Initial Sepsis Screen: Does the patient meet any 2 criteria? No. Patient's initial sepsis screen is negative. Does the patient have a suspected source of infection? No. Patient's initial sepsis screen is negative. Risk Assessment: Do you want to hurt yourself or someone else? Patient reports no desire to harm self or others. Onset of symptoms was March 23, 2020. 14:07 Method Of Arrival: EMS: [facility] sv 14:07 Acuity: CARMITA 5 sv Triage Assessment: 14:08 General: Appears in no apparent distress. comfortable, Behavior is calm, cooperative, sv appropriate for age. Pain: Denies pain. Neuro: Level of Consciousness is awake, alert, obeys commands, Oriented to person, place, time, situation, Moves all extremities. Full function Gait is steady. Respiratory: Respiratory effort is even, unlabored, Respiratory pattern is regular, symmetrical. Derm: Skin is pink, warm \T\ dry. Historical: - Allergies: 14:08 NKA; sv - PMHx: 14:08 ADD/ADHD; Anxiety; Bipolar disorder; Chronic pain; hemorrhoids; psychiatric; Seizures; sv - Immunization history:: Adult Immunizations. - Social history:: Smoking status: . Screenin:09 Abuse screen: Denies threats or abuse. Denies injuries from another. Nutritional sv screening: No deficits noted. Tuberculosis screening: No symptoms or risk factors identified. Fall Risk None identified. Assessment: 14:12 General: Appears in no apparent distress. comfortable, Behavior is calm, cooperative, em appropriate for age, reports feeling anxious, request assistance for rent and bills, pt informed that we cannot help her unless she is having a medical problem, informed her we can give her resources for places that may be able to assist her like the [employer], pt agreed to get a paper with contact information for those resources. Pain: Denies pain. Neuro: Level of Consciousness is awake, alert, obeys commands, Oriented to person, place, time, situation. Cardiovascular: Capillary refill < 3 seconds Patient's skin is warm and dry. Respiratory: Airway is patent Respiratory effort is even, unlabored, Respiratory pattern is regular, symmetrical. Derm: Skin is intact, is healthy with good turgor, Skin is pink, warm \T\ dry. Musculoskeletal: pt has shaking Parkinson's like movements. 14:30 Reassessment: Patient appears in no apparent distress at this time. No changes from sv previously documented assessment. Patient and/or family updated on plan of care and expected duration. Pain level reassessed. Patient is alert, oriented x 3, equal unlabored respirations, skin warm/dry/pink. Vital Signs: 14:07 BP 132 / 82; Pulse 70; Resp 16; Temp 97.8; Pulse Ox 100% ; sv ED Course: 14:06 Patient arrived in ED. sv 14:06 Artur Watkins PA is PHCP. [facility] 14:06 Boris Olivera MD is Attending Physician. [facility] 14:07 Samantha Pitts RN is Primary Nurse. sv 14:07 Arm band placed on. sv 14:08 Triage completed. sv 14:09 Patient has correct armband on for positive identification. Bed in low position. Call sv light in reach. 14:30 No provider procedures requiring assistance completed. Patient did not have IV access sv during this emergency room visit. Administered Medications: 14:20 Drug: Ativan 1 mg Route: PO; vg1 14:30 Follow up: Response: No adverse reaction sv Outcome: 14:25 Discharge ordered by MD. [facility] 14:30 Discharged to home ambulatory. sv 14:30 Condition: stable 14:30 Discharge instructions given to patient, Instructed on discharge instructions, follow up and referral plans. Demonstrated understanding of instructions, follow-up care. 14:30 Patient left the ED. sv Signatures: Samantha Pitts RN RN Artur Watkins PA PA jmm Munoz, Edgar, RN RN em Garcia, Victoria RN RN vg1 Corrections: (The following items were deleted from the chart) 14:08 14:07 Pulse 70bpm; Resp 16bpm; Pulse Ox 100%; Temp 97.8F; sv sv
--- NOTE | 2020-03-23 14:26 | EDPHYS ---
Physician Documentation [facility] Name: Sidra Hodges Age: 45 yrs Sex: Female : 1975 Arrival Date: 03/23/2020 Time: 14:06 Bed 7 Private MD: ED Physician Boris Olivera HPI: 03/23 14:12 This 45 yrs old Female presents to ER via EMS with complaints of Hands shaking.[facility] 14:12 The patient presents to the emergency department with anxiety, over money. Onset: The jm symptoms/episode began/occurred today. This is a 45 year old bipolar disorder that presents to the ED with complaints of anxiety over bills, rent. Patient has come into the ED with similar presentation previously. . Historical: - Allergies: 14:08 NKA; sv - PMHx: 14:08 ADD/ADHD; Anxiety; Bipolar disorder; Chronic pain; hemorrhoids; psychiatric; Seizures; sv - Immunization history:: Adult Immunizations. - Social history:: Smoking status: . ROS: 14:12 Constitutional: Negative for fever, chills, and weight loss, Cardiovascular: Negative jm for chest pain, palpitations, and edema, Respiratory: Negative for shortness of breath, cough, wheezing, and pleuritic chest pain. 14:12 Psych: Positive for anxiety. 14:12 All other systems are negative. Exam: 14:12 Head/Face: atraumatic. Eyes: EOMI, no conjunctival erythema appreciated ENT: Moist jmm Mucus Membranes Neck: Trachea midline, Supple Chest/axilla: Normal chest wall appearance and motion. Cardiovascular: Regular rate and rhythm. No edema appreciated Respiratory: Normal respirations, no respiratory distress appreciated Abdomen/GI: Non distended, soft Back: Normal ROM Skin: General appearance color normal MS/ Extremity: Moves all extremities, no obvious deformities appreciated, no edema noted to the lower extremities Neuro: Awake and alert, normal gait Psych: Behavior is normal, Mood is normal, Patient is cooperative and pleasant 14:12 Constitutional: The patient appears alert, awake, anxious. Vital Signs: 14:07 BP 132 / 82; Pulse 70; Resp 16; Temp 97.8; Pulse Ox 100% ; sv MDM: 14:12 Patient medically screened. mario 14:21 Data reviewed: vital signs, nurses notes. Counseling: I had a detailed discussion with mario the patient and/or guardian regarding: the historical points, exam findings, and any diagnostic results supporting the discharge/admit diagnosis, the need for outpatient follow up, to return to the emergency department if symptoms worsen or persist or if there are any questions or concerns that arise at home. ED course: Patient has come in with similar complaint multiple times. Patient given a list of shelters. I discussed this with the patient whom agrees with the plan of care. . Administered Medications: 14:20 Drug: Ativan 1 mg Route: PO; vg1 14:30 Follow up: Response: No adverse reaction sv Disposition: 15:49 Co-signature as Attending Physician, Boris Olivera MD I agree with the assessment and kdr plan of care. Disposition: 03/23/20 14:25 Discharged to Home. Impression: Anxiety disorder, unspecified. - Condition is Stable. - Discharge Instructions: Panic Attacks. - Medication Reconciliation Form, Thank You Letter, Antibiotic Education, Prescription Opioid Use form. - Follow up: Private Physician; When: 2 - 3 days; Reason: Recheck today's complaints, Continuance of care, Re-evaluation by your physician. Signatures: Samantha Pitts, RN RN Boris Kramer MD MD [facility] Artur Watkins PA PA jmm Garcia, Victoria, RN RN vg1 Corrections: (The following items were deleted from the chart) 14:30 14:25 03/23/2020 14:25 Discharged to Home. Impression: Anxiety disorder, unspecified. sv Condition is Stable. Forms are Medication Reconciliation Form, Thank You Letter, Antibiotic Education, Prescription Opioid Use. Follow up: Private Physician; When: 2 - 3 days; Reason: Recheck today's complaints, Continuance of care, Re-evaluation by your physician. mario
[2020-03-23] MEDS ORDERED: LORAZEPAM 1 MG TABLET ONE (14:28)
[2020-03-23 14:35] VITALS: BP 132/82; TEMP 97.8; O2SAT 100
== END 2020-03-23 14:30 | disposition home or self-care (01) ==
LOC: ER 14:05
DX: F41.9 Anxiety disorder, unspecified (principal); F31.9 Bipolar disorder, unspecified
CPT/HCPCS: 99283

== ENCOUNTER 2020-03-24 11:29 | Emergency (ER) | payer SELFPAY ==
--- NOTE | 2020-03-24 11:42 | ER ---
Nurse's Notes [facility] Name: Sidra Hodges Age: 45 yrs Sex: Female : 1975 Arrival Date: 03/24/2020 Time: 11:33 Bed Waiting Private MD: Diagnosis: Assessment: 03/24 11:38 Reassessment: registration reports pt left the lobby and is walking through parking lot.iw ED Course: 11:33 Patient arrived in ED. ds1 Administered Medications: No medications were administered Outcome: 11:41 Eloped from waiting room, before seeing physician Time discovered patient gone: March at 11:41 11:41 Patient left the ED. iw Signatures: Mae Machado ds1 Laila Foreman, RN RN iw
== END 2020-03-24 11:41 | disposition left against medical advice (07) ==
LOC: ER 11:29
DX: Z02.9 Encounter for administrative examinations, unspecified (principal)

== ENCOUNTER 2020-03-25 12:30 | Emergency (ER) | payer SELFPAY ==
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
--- NOTE | 2020-03-26 08:21 | EKG ---
Test Date: 2020-03-25 Test Time: 13:14:09 Line Erector: BLAIRE MEASUREMENT RESULTS: Intervals: Rate: 67 [place]: 134 QRSD: 80 QT: 546 QTc: 576 [place]: P: 22 [place]: 134 QRS: 30 T: 67 INTERPRETIVE STATEMENTS: Normal sinus rhythm Low voltage QRS Nonspecific T wave abnormality Prolonged QT Abnormal ECG Compared to ECG 12/16/2019 13:43:19 Low QRS voltage now present T-wave abnormality now present Prolonged QT interval now present ST (T wave) deviation no longer present Electronically Signed On 03-26-20 08:19:28 CDT by Dimitri Bruce
--- OUTSIDE RECORDS SUMMARY | 2020-03-30 20:15 | XMS REPORT | Continuity of Care Document ---
:1975 Author Organization [facility] t Address [address] [place] [address] Care Team Providers Name Role Phone Marissa [...] Department ID 2019-12-15 2019-12-15 Emergency Kp Gilliland [facility] [id number] 17:11:56 18:04:00 Marissa Gonzalez [id number] [place] [id number] [place] [id number] 2019-10-25 2019-10-25 Emergency YUDITH Ballesteros [id number] 18:31:31 19:21:00 Dwaine Gonzalez [id number] [place] [id number] [place] [id number] 2019-08-13 2019-08-13 Emergency [place], [facility] [id number] 13:30:00 14:36:00 Jerry Gonzalez [id number] [place] [id number] [place] [id number] 2019-07-22 2019-07-22 Emergency Unknown, Attending TRAUMA [id number] 13:42:11 19:02:00 Lisa Morfin [facility] [id number] [id number] [id number] 2019-01-21 2019-01-21 Emergency [facility], [facility] [id number] 18:38:01 19:59:00 Le Gonzalez [id number] [place] [id number] [place] [address] [id number] Results Test Description Test Time Test Comments Results Result Comments Source Valproic Acid Level 2019-01-12 08:03:22 Test Item Value Reference Range Interpretation Comme nts Valproic Acid Level (test code = Valproic Acid Level) 57.6 ug/mL(g) 50.0-100.0 Hemoglobin [id number] 09:36:00 Test Item Value Reference Range Interpretation Comments Hemoglobin A1c (test code 5.0 % 4.8-5.9 No n Diabetic = Hemoglobin A1c) 4.8-5.9%Di abetic <7.0% CT Shoulder w/o Contrast [id number] 16:49:13Patient: BHUMIKA JONES Date/Time01/09/2019 16:14 CDTReason for [...] Adam FSigned (Electronic Signature): 01/09/2019 4:49 pmRPR [id number] 21:33:20 Test Item Value Reference Range Interpretation [...] Expiration Dt) XR Shoulder Complete 2+ Views [id number] 15:41:25Patient: BHUMIKA JONES Date/Time01/07/2019 15:25 CDTReason for [...] CSigned (Electronic Signature): 01/07/2019 3:41 pmThyroid Stimulating [id number] 03:07:04 Test Item Value Reference Range Interpretation Comments TSH (test code = TSH) 9.650 mIU/mL 0.270-4.200 H Lipid [id number] 03:07:03 Test Item Value Reference Range Interpretation Comments Cholesterol Total 199 mg/dL 0-200 RISK OF HE ART (test code = DISEASEPublishe d by Cholesterol Total) [place] [employer] [place] Optimal Borderl ine [...] LDL/HDL Ratio=L DL Calc/HDL Chol HCG Qualitative [id number] 02:33:13 Test Item Value Reference Range Interpretation Comments HCG, Serum Qual (test code = HCG, Negative Serum Qual) Lot # (test code = Lot #) [id number] Expiration Dt (test code = 2020-04-23 N Expiration Dt) Neg Control (test code = Neg Negative Control) Pos Control (test code = Pos Positive Control) Internal QC (test code = Internal Acceptable QC) Drugs of Abuse Urine [id number] 18:58:11 Test Item Value Reference Range Interpretation [...] (test code = Cannabinoid Screen Ur) Alcohol [id number] 18:47:34 Test Item Value Reference Range Interpretation Comments Ethanol Level (test <0.00 g/dL 0.00-0.01 Intoxica isabel 0.080 g/dL code = Ethanol or more Level) Ethanol Inst (test <0 N code = Ethanol Inst) Comprehensive Metabolic [id number] 18:47:33 Test Item Value Reference Range Interpretation [...] A/G 1.0 ratio N Ratio) Comprehensive Metabolic [id number] 18:47:33 Test Item Value Reference Range Interpretation [...] National Kidney Foundation, http://nkdep.ni h.gov Comprehensive Metabolic [id number] 18:47:33 Test Item Value Reference Range Interpretation [...] ag e have not been validated by [facility] MDRD study and should be interpreted [...] ag e have not been validated by [facility] MDRD study and should be interpreted wit h caution. eGFR R esult Interpretation: eGFR > or = 60 is in the Normal RangeeGF R < 60 may mean kid betzaida diseaseeGFR < 1 5 may mean kidney failure Rang es recommended by the National Kidney Foundation, http://nkdep.[facility].gov Complete Blood Count with [id number] 18:15:23 Test Item Value Reference Range Interpretation [...] code = IPF) 0 % N Automated [id number] 18:15:23 Test Item Value Reference Range Interpretation Comments Neutro Auto (test code = Neutro 42.1 % 36.0-70.0 Auto) Lymph Auto (test code = Lymph Auto) 40.0 % 12.0-44.0 [place] Auto (test code = [place] Auto) 12.2 % 0.0-11.0 H Eos, Auto (test code = Eos, Auto) 4.9 % 0.0-7.0 Basophil Auto (test code = Basophil 0.6 % 0.0-2.0 Auto) Neutro Absolute (test code = Neutro 2.2 x10 1.6-7.4 Absolute) Lymph Absolute (test code = Lymph 2.06 x10 .50-4.60 Absolute) [place] Absolute (test code = [place] .63 x10 .00-1.20 Absolute) Eos Absolute (test code = Eos 0.25 x10 0.00-0.74 Absolute) Baso Absolute (test code = Baso 0.03 x10 0.00-0.21 Absolute) IG [id number] 18:15:23 Test Item Value Reference Range Interpretation Comments IG (test code = IG) 0.2 % 0.0-5.0 IG Abs (test code = IG Abs) 0 x10 N
== END 2020-03-25 13:26 | disposition home or self-care (01) ==
LOC: ER 12:30
DX: F41.9 Anxiety disorder, unspecified (principal); F31.9 Bipolar disorder, unspecified
CPT/HCPCS: 93005; 99283

== ENCOUNTER 2020-06-08 22:20 | Emergency (ER) | payer SELFPAY ==
--- OUTSIDE RECORDS SUMMARY | 2020-06-08 22:22 | XMS REPORT | Continuity of Care Document ---
:1975 Author Organization [facility] t Address [address] [place] [address] Care Team Providers Name Role Phone Marissa [...] Department ID 2019-12-15 2019-12-15 Emergency Kp Gill[place]and [facility] [id number] 17:11:56 18:04:00 Marissa Goznalez [id number] [place] [id number] [place] [id number] 2019-10-25 2019-10-25 Emergency YUDITH Ballesteros [id number] 18:31:31 19:21:00 Dwaine Gonzalez [id number] [place] [id number] [place] [id number] 2019-08-13 2019-08-13 Emergency [place], [facility] [id number] 13:30:00 14:36:00 Jerry Gonzalez [id number] [place] [id number] [place] [id number] 2019-07-22 2019-07-22 Emergency Unknown, Attending TRAUMA [id number] 13:42:11 19:02:00 Lisa Morfin [facility] [id number] [id number] [id number] 2019-01-21 2019-01-[address] [facility], [facility] [id number] 18:38:01 19:59:00 Le Gonzalez [id number] [place] [id number] [place] [address] [id number] Results Test Description Test Time Test Comments Results Result Comments Source Valproic Acid Level 2019-01-12 08:03:22 Test Item Value Reference Range Interpretation Comme nts Valproic Acid Level (test code = Valproic Acid Level) 57.6 ug/mL(g) 50.0-100.0 Hemoglobin [id number] 09:36:00 Test Item Value Reference Range Interpretation Comments Hemoglobin A1c (test code 5.0 % 4.8-5.9 No n Diabetic = Hemoglobin A1c) 4.8-5.9%Di abetic <7.0% CT Shoulder w/o Contrast [id number] 16:49:13Patient: BHUMIKA JONES Date/Time01/09/2019 16:14 CDTReason for [...] FDictated DT/TM: 01/09/2019 4:43 pmSigned by: MD Frakn Adam FSigned (Electronic Signature): 01/09/2019 4:49 pmRPR [id number] 21:33:20 Test Item Value Reference Range Interpretation [...] Expiration Dt) XR Shoulder Complete 2+ Views [id number] 15:41:25Patient: BHUMIKA JONES Date/Time01/07/2019 15:25 CDTReason for [...] CSigned (Electronic Signature): 01/07/2019 3:41 pmThyroid Stimulating [id number] 03:07:04 Test Item Value Reference Range Interpretation Comments TSH (test code = TSH) 9.650 mIU/mL 0.270-4.200 H Lipid [id number] 03:07:03 Test Item Value Reference Range Interpretation Comments Cholesterol Total 199 mg/dL 0-200 RISK OF HE ART (test code = DISEASEPublishe d by Cholesterol Total) [place] [employer] Semla lyte Optimal Borderl ine Increased RiskC HOL [...] LDL/HDL Ratio=L DL Calc/HDL Chol HCG Qualitative [id number] 02:33:13 Test Item Value Reference Range Interpretation Comments HCG, Serum Qual (test code = HCG, Negative Serum Qual) Lot # (test code = Lot #) [id number] N Expiration Dt (test code = 2020-04-23 N Expiration Dt) Neg Control (test code = Neg Negative Control) Pos Control (test code = Pos Positive Control) Internal QC (test code = Internal Acceptable QC) Drugs of Abuse Urine [id number] 18:58:11 Test Item Value Reference Range Interpretation [...] (test code = Cannabinoid Screen Ur) Alcohol [id number] 18:47:34 Test Item Value Reference Range Interpretation Comments Ethanol Level (test <0.00 g/dL 0.00-0.01 Intoxica isabel 0.080 g/dL code = Ethanol or more Level) Ethanol Inst (test <0 N code = Ethanol Inst) Comprehensive Metabolic [id number] 18:47:33 Test Item Value Reference Range Interpretation [...] A/G 1.0 ratio N Ratio) Comprehensive Metabolic [id number] 18:47:33 Test Item Value Reference Range Interpretation [...] National Kidney Foundation, http://nkdep.ni h.gov Comprehensive Metabolic [id number] 18:47:33 Test Item Value Reference Range Interpretation [...] ag e have not been validated by [facility] MDRD study and should be interpreted [...] ag e have not been validated by [facility] MDRD study and should be interpreted wit h caution. eGFR R esult Interpretation: eGFR > or = 60 is in the Normal RangeeGF R < 60 may mean kid betzaida diseaseeGFR < 1 5 may mean kidney failure Rang es recommended by the National Kidney Foundation, http://nkdep.[facility].gov Complete Blood Count with [id number] 18:15:23 Test Item Value Reference Range Interpretation [...] code = IPF) 0 % N Automated [id number] 18:15:23 Test Item Value Reference Range Interpretation Comments Neutro Auto (test code = Neutro 42.1 % 36.0-70.0 Auto) Lymph Auto (test code = Lymph Auto) 40.0 % 12.0-44.0 [place] Auto (test code = [place] Auto) 12.2 % 0.0-11.0 H Eos, Auto (test code = Eos, Auto) 4.9 % 0.0-7.0 Basophil Auto (test code = Basophil 0.6 % 0.0-2.0 Auto) Neutro Absolute (test code = Neutro 2.2 x10 1.6-7.4 Absolute) Lymph Absolute (test code = Lymph 2.06 x10 .50-4.60 Absolute) [place] Absolute (test code = [place] .63 x10 .00-1.20 Absolute) Eos Absolute (test code = Eos 0.25 x10 0.00-0.74 Absolute) Baso Absolute (test code = Baso 0.03 x10 0.00-0.21 Absolute) IG [id number] 18:15:23 Test Item Value Reference Range Interpretation Comments IG (test code = IG) 0.2 % 0.0-5.0 IG Abs (test code = IG Abs) 0 x10 N
--- NOTE | 2020-06-08 22:46 | EDPHYS ---
Physician Documentation [facility] Name: Sidra Hodges Age: 45 yrs Sex: Female : 1975 Arrival Date: 06/08/2020 Time: 22:22 Bed 20 Private MD: ED Physician Jose Armando Tavera HPI: 06/08 22:43 This 45 yrs old Female presents to ER via EMS with complaints of headache, kb COVID +. 22:43 The patient or guardian reports flu symptoms, myalgias. Onset: The symptoms/episode kb began/occurred yesterday. Severity of symptoms: At their worst the symptoms were very mild, mild, in the emergency department the symptoms are unchanged. Modifying factors: The symptoms are alleviated by nothing, the symptoms are aggravated by nothing. Associated signs and symptoms: The patient has no apparent associated signs or symptoms. The patient has not experienced similar symptoms in the past. The patient has been recently seen by a physician:. Pt reports she was diagnosed with COVID yesterday. States she can't stay at her mother's house because they have children there and she doesn't want to get anyone else sick. She came here because she doesn't have anywhere else to stay. Reports malaise, chills and headache only. Historical: - Allergies: 22:26 NKA; aj1 - Home Meds: 22:26 divalproex 500 mg Oral TbEC [Active]; Risperdal 3 mg Oral tab [Active]; aj1 - PMHx: 22:26 ADD/ADHD; Anxiety; Bipolar disorder; Chronic pain; hemorrhoids; psychiatric; Seizures; aj1 - Immunization history:: Adult Immunizations up to date. - Social history:: Smoking status: Patient/guardian denies using tobacco. ROS: 22:43 Cardiovascular: Negative for chest pain, palpitations, and edema, Respiratory: Negative kb for shortness of breath, cough, wheezing, and pleuritic chest pain, Abdomen/GI: Negative for abdominal pain, nausea, vomiting, diarrhea, and constipation, MS/Extremity: Negative for injury and deformity, Skin: Negative for injury, rash, and discoloration. 22:43 Constitutional: Positive for chills, malaise. 22:43 Neuro: Positive for headache. Exam: 22:43 Constitutional: This is a well developed, well nourished patient who is awake, alert, kb and in no acute distress. Head/Face: Normocephalic, atraumatic. Chest/axilla: Normal chest wall appearance and motion. Nontender with no deformity. No lesions are appreciated. Cardiovascular: Regular rate and rhythm with a normal S1 and S2. No gallops, murmurs, or rubs. Normal PMI, no JVD. No pulse deficits. Respiratory: Lungs have equal breath sounds bilaterally, clear to auscultation and percussion. No rales, rhonchi or wheezes noted. No increased work of breathing, no retractions or nasal flaring. Abdomen/GI: Soft, non-tender, with normal bowel sounds. No distension or tympany. No guarding or rebound. No evidence of tenderness throughout. Skin: Warm, dry with normal turgor. Normal color with no rashes, no lesions, and no evidence of cellulitis. MS/ Extremity: Pulses equal, no cyanosis. Neurovascular intact. Full, normal range of motion. Neuro: Awake and alert, GCS 15, oriented to person, place, time, and situation. Cranial nerves II-XII grossly intact. Motor strength 5/5 in all extremities. Sensory grossly intact. Cerebellar exam normal. Normal gait. Vital Signs: 22:26 BP 119 / 97; Pulse 74; Resp 18; Temp 98.4; Pulse Ox 100% on R/A; aj1 MDM: 22:23 Patient medically screened. kb 22:42 Data reviewed: vital signs, nurses notes. Data interpreted: Pulse oximetry: on room air kb is 100 %. Interpretation: normal. Counseling: I had a detailed discussion with the patient and/or guardian regarding: the historical points, exam findings, and any diagnostic results supporting the discharge/admit diagnosis, the need for outpatient follow up, a family practitioner, to return to the emergency department if symptoms worsen or persist or if there are any questions or concerns that arise at home. Administered Medications: 22:53 Drug: Tylenol 1000 mg Route: PO; aj1 Disposition: 06/09 03:59 Co-signature as Attending Physician, Jose Armando Tavera MD. mh7 Disposition: 06/08/20 22:45 Discharged to Home. Impression: Headache, Coronavirus infection, unspecified. - Condition is Stable. - Discharge Instructions: COVID-19. - Medication Reconciliation Form, Thank You Letter, Antibiotic Education, Prescription Opioid Use form. - Follow up: Emergency Department; When: As needed; Reason: Worsening of condition. Follow up: Private Physician; When: 2 - 3 days; Reason: Recheck today's complaints, Continuance of care, Re-evaluation by your physician. Signatures: Cristina Sewell, GUERDA-C GUERDA-Nyla Roman RN RN aj1 Jose Armando Tavera MD MD mh7 Corrections: (The following items were deleted from the chart) 00:21 06/08 22:45 06/08/2020 22:45 Discharged to Home. Impression: Headache; Coronavirus aj1 infection, unspecified. Condition is Stable. Forms are Medication Reconciliation Form, Thank You Letter, Antibiotic Education, Prescription Opioid Use. Follow up: Emergency Department; When: As needed; Reason: Worsening of condition. Follow up: Private Physician; When: 2 - 3 days; Reason: Recheck today's complaints, Continuance of care, Re-evaluation by your physician. kb
--- NOTE | 2020-06-08 22:46 | ER ---
Nurse's Notes [facility] Name: Sidra Hodges Age: 45 yrs Sex: Female : 1975 Arrival Date: 06/08/2020 Time: 22:22 Bed 20 Private MD: Diagnosis: Headache;Coronavirus infection, unspecified Presentation: 06/08 22:23 Chief complaint: EMS states: Patient was seen at [facility] yesterday and diagnosed with aj1 COVID. Patient called 911 today because she does not feel good. Denies shortness of breath, patient ambulated to room from ambulance, no distress noted. Coronavirus screen: Client denies travel out of the [place] in the last 14 days. Client reports previous positive COVID test result. Ebola Screen: Patient denies travel to an Ebola-affected area in the 21 days before illness onset. Initial Sepsis Screen: Does the patient meet any 2 criteria? No. Patient's initial sepsis screen is negative. Does the patient have a suspected source of infection? Yes: Other: Positive COVID swab yesterday. Risk Assessment: Do you want to hurt yourself or someone else? Patient reports no desire to harm self or others. Onset of symptoms was May 2020. 22:23 Method Of Arrival: [facility] aj1 22:23 Acuity: CARMITA 4 aj1 Triage Assessment: 22:26 General: Appears in no apparent distress. comfortable, Behavior is calm, cooperative, aj1 appropriate for age. Pain: Denies pain. Historical: - Allergies: 22:26 NKA; aj1 - Home Meds: 22:26 divalproex 500 mg Oral TbEC [Active]; Risperdal 3 mg Oral tab [Active]; aj1 - PMHx: 22:26 ADD/ADHD; Anxiety; Bipolar disorder; Chronic pain; hemorrhoids; psychiatric; Seizures; aj1 - Immunization history:: Adult Immunizations up to date. - Social history:: Smoking status: Patient/guardian denies using tobacco. Screenin:30 Abuse screen: Denies threats or abuse. Denies injuries from another. Nutritional aj1 screening: No deficits noted. Tuberculosis screening: No symptoms or risk factors identified. 23:35 Fall Risk None identified. aj1 Assessment: 22:30 General: Appears in no apparent distress. comfortable, Behavior is calm, cooperative, aj1 appropriate for age. Pain: Complains of pain in face Pain does not radiate. Pain currently is 5 out of 10 on a pain scale. Quality of pain is described as aching. Neuro: Level of Consciousness is awake, alert, obeys commands. Neuro: Oriented to person, place, time, situation, Gait is steady, Facial symmetry appears normal, Reports headache. Cardiovascular: Patient's skin is warm and dry. Respiratory: Airway is patent Respiratory effort is even, unlabored, Respiratory pattern is regular, symmetrical. Respiratory: Denies shortness of breath. GI: No signs and/or symptoms were reported involving the gastrointestinal system. : No signs and/or symptoms were reported regarding the genitourinary system. EENT: No signs and/or symptoms were reported regarding the EENT system. Derm: No signs and/or symptoms reported regarding the dermatologic system. Skin is pink, warm \\T\\ dry. normal. Musculoskeletal: No signs and/or symptoms reported regarding the musculoskeletal system. Circulation, motion, and sensation intact. 23:34 Reassessment: Patient is discharged, unable to place patient in lobby due to COVID aj1 positive status, unable to call pt a taxi due to COVID positive status. Charge nurse Neema Davis RN aware. 23:52 Reassessment:. sg 23:53 Reassessment: Patient appears in no apparent distress at this time. Patient and/or sg family updated on plan of care and expected duration. Pain level reassessed. Patient is alert, oriented x 3, equal unlabored respirations, skin warm/dry/pink. attempt to contact pt sister Zoraida, at [phone], no answer at this time. 23:59 Reassessment: Called Zoraida, Zoraida states " who is speaking?" informed her that I am a sg nurse from [facility] calling on behalf of [place], Zoraida then speaks only estonian on the phone and the call was disconnected. 06/09 00:01 Reassessment: pt speaking on her cell phone with someone at this time, pt is tearful, sg pt to be dispo to home, pt stable at this time. 00:23 Reassessment: Patient appears in no apparent distress at this time. Patient and/or sg family updated on plan of care and expected duration. Pain level reassessed. pt reports she is not able to reach her family/friends at this time, pt encouraged to keep trying, pt to await for transport to home in the lobby. Vital Signs: 06/08 22:26 BP 119 / 97; Pulse 74; Resp 18; Temp 98.4; Pulse Ox 100% on R/A; aj1 ED Course: 22:22 Patient arrived in ED. kb 22:23 Cristina Sewell FNP-C [facility]. kb 22:23 Jose Armando Tavera MD is Attending Physician. kb 22:23 Nyla Luz, RN is Primary Nurse. aj1 22:25 Triage completed. aj1 22:28 Arm band placed on. aj1 22:30 Patient has correct armband on for positive identification. aj1 22:30 No provider procedures requiring assistance completed. aj1 23:35 Patient did not have IV access during this emergency room visit. aj1 Administered Medications: 22:53 Drug: Tylenol 1000 mg Route: PO; aj1 Outcome: 22:45 Discharge ordered by . kb 23:15 Discharged to home ambulatory. ea 23:15 Condition: stable 23:15 Discharge instructions given to patient, Instructed on discharge instructions, follow up and referral plans. Demonstrated understanding of instructions, follow-up care. 12 00:21 Patient left the ED. aj1 06:34 Condition: [id number]. sg Signatures: Cristina Sewell FNP-C FNP-Nyla Roman, RN RN aj Blanco Davis RN RN sg Antunez, Elena, RN RN ea Corrections: (The following items were deleted from the chart) 06:34 06/08 23:53 Reassessment: Patient appears in no apparent distress at this time. Patient sg and/or family updated on plan of care and expected duration. Pain level reassessed. Patient is alert, oriented x 3, equal unlabored respirations, skin warm/dry/pink. attempt to contact pt sister Zoraida, at [phone], no answer at this time sg
[2020-06-08] MEDS ORDERED: ACETAMINOPHEN 500 MG TAB ONE ×2 (22:59→23:21)
[2020-06-10 08:33] VITALS: BP 119/97; TEMP 98.4; O2SAT 100
== END 2020-06-09 00:21 | disposition home or self-care (01) ==
LOC: ER 22:20
DX: U07.1 COVID-19 (principal); R53.81 Other malaise; F31.9 Bipolar disorder, unspecified
CPT/HCPCS: 99283

== ENCOUNTER 2020-06-15 | Emergency (ER) | payer SELFPAY ==
--- OUTSIDE RECORDS SUMMARY | 2020-06-15 14:39 | XMS REPORT | Continuity of Care Document ---
:1975 Author Organization [facility] t Address [address] [place] [address] Care Team Providers Name Role Phone Marissa [...] Department ID 2019-12-15 2019-12-15 Emergency Kp [place] [facility] [id number] 17:11:56 18:04:00 Marissa Gonzalez [id number] [place] [id number] [place] [id number] 2019-10-25 2019-10-25 Emergency YUDITH Ballesteros [id number] 18:31:31 19:21:00 Dwaine Gonzalez [id number] [place] [id number] [place] [id number] [id number] 2019-08-13 2019-08-13 Emergency [place], [facility] [id number] 13:30:00 14:36:00 Jerry Gonzalez [id number] [place] [id number] [place] [id number] 2019-07-22 2019-07-22 Emergency Unknown, Attending TRAUMA [id number] 13:42:11 19:02:00 Lisa Morfin [facility] [id number] [id number] [id number] 2019-01-21 2019-01-21 Emergency [facility], [facility] [id number] 18:38:01 19:59:00 Le Gonzalez [id number] [place] [id number] [place] [address] [id number] [id number] Results Test Description Test Time Test Comments Results Result Comments Source Valproic Acid Level 2019-01-12 08:03:22 Test Item Value Reference Range Interpretation Comme nts Valproic Acid Level (test code = Valproic Acid Level) 57.6 ug/mL(g) 50.0-100.0 Hemoglobin [id number] 09:36:00 Test Item Value Reference Range Interpretation Comments Hemoglobin A1c (test code 5.0 % 4.8-5.9 No n Diabetic = Hemoglobin A1c) 4.8-5.9%Di abetic <7.0% CT Shoulder w/o Contrast [id number] 16:49:13Patient: BHUMIKA JONES Date/Time01/09/2019 16:14 CDTReason for [...] Adam FSigned (Electronic Signature): 01/09/2019 4:49 pmRPR [id number] 21:33:20 Test Item Value Reference Range Interpretation [...] Expiration Dt) XR Shoulder Complete 2+ Views [id number] 15:41:25Patient: BHUMIKA JONES Date/Time01/07/2019 15:25 CDTReason for [...] CSigned (Electronic Signature): 01/07/2019 3:41 pmThyroid Stimulating [id number] 03:07:04 Test Item Value Reference Range Interpretation Comments TSH (test code = TSH) 9.650 mIU/mL 0.270-4.200 H Lipid [id number] 03:07:03 Test Item Value Reference Range Interpretation Comments Cholesterol Total 199 mg/dL 0-200 RISK OF HE ART (test code = DISEASEPublishe d by Cholesterol Total) [place] [employer] [place] lyte Optimal Borderl ine [...] LDL/HDL Ratio=L DL Calc/HDL Chol HCG Qualitative [id number] 02:33:13 Test Item Value Reference Range Interpretation Comments HCG, Serum Qual (test code = HCG, Negative Serum Qual) Lot # (test code = Lot #) [id number] Expiration Dt (test code = 2020-04-23 N Expiration Dt) Neg Control (test code = Neg Negative Control) Pos Control (test code = Pos Positive Control) Internal QC (test code = Internal Acceptable QC) Drugs of Abuse Urine [id number] 18:58:11 Test Item Value Reference Range Interpretation [...] (test code = Cannabinoid Screen Ur) Alcohol [id number] 18:47:34 Test Item Value Reference Range Interpretation Comments Ethanol Level (test <0.00 g/dL 0.00-0.01 Intoxica isabel 0.080 g/dL code = Ethanol or more Level) Ethanol Inst (test <0 N code = Ethanol Inst) Comprehensive Metabolic [id number] 18:47:33 Test Item Value Reference Range Interpretation [...] A/G 1.0 ratio N Ratio) Comprehensive Metabolic [id number] 18:47:33 Test Item Value Reference Range Interpretation [...] National Kidney Foundation, http://nkdep.ni h.gov Comprehensive Metabolic [id number] 18:47:33 Test Item Value Reference Range Interpretation [...] ag e have not been validated by [facility] MDRD study and should be interpreted [...] ag e have not been validated by [facility] MDRD study and should be interpreted wit h caution. eGFR R esult Interpretation: eGFR > or = 60 is in the Normal RangeeGF R < 60 may mean kid betzaida diseaseeGFR < 1 5 may mean kidney failure Rang es recommended by the National Kidney Foundation, http://nkdep.[facility].gov Complete Blood Count with [id number] 18:15:23 Test Item Value Reference Range Interpretation [...] code = IPF) 0 % N Automated [id number] 18:15:23 Test Item Value Reference Range Interpretation Comments Neutro Auto (test code = Neutro 42.1 % 36.0-70.0 Auto) Lymph Auto (test code = Lymph Auto) 40.0 % 12.0-44.0 [place]clennan Auto (test code = Mclennan Auto) 12.2 % 0.0-11.0 H Eos, Auto (test code = Eos, Auto) 4.9 % 0.0-7.0 Basophil Auto (test code = Basophil 0.6 % 0.0-2.0 Auto) Neutro Absolute (test code = Neutro 2.2 x10 1.6-7.4 Absolute) Lymph Absolute (test code = Lymph 2.06 x10 .50-4.60 Absolute) Mclennan Absolute (test code = Mclennan .63 x10 .00-1.20 Absolute) Eos Absolute (test code = Eos 0.25 x10 0.00-0.74 Absolute) Baso Absolute (test code = Baso 0.03 x10 0.00-0.21 Absolute) IG [id number] 18:15:23 Test Item Value Reference Range Interpretation Comments IG (test code = IG) 0.2 % 0.0-5.0 IG Abs (test code = IG Abs) 0 x10 N
--- NOTE | 2020-06-15 18:04 | ER ---
Nurse's Notes [facility] Name: Sidra Hodges Age: 45 yrs Sex: Female : 1975 Arrival Date: 06/15/2020 Time: 14:39 Bed 23 Private MD: Diagnosis: Wants COVID Test Presentation: 06/15 14:55 Chief complaint: EMS states: wants another COVID test because she doesn't believe she sv is positive. Coronavirus screen: Client denies travel out of the [place] in the last 14 days. Ebola Screen: No symptoms or risks identified at this time. Risk Assessment: Do you want to hurt yourself or someone else? Patient reports no desire to harm self or others. Onset of symptoms was June 15, 2020. 14:55 Method Of Arrival: EMS: [facility] sv 14:55 Acuity: CARMITA 5 sv 14:56 Initial Sepsis Screen: Does the patient meet any 2 criteria? No. Patient's initial sv sepsis screen is negative. Does the patient have a suspected source of infection? No. Patient's initial sepsis screen is negative. Triage Assessment: 14:55 General: Appears in no apparent distress. comfortable, Behavior is calm, cooperative, sv appropriate for age. Pain: Denies pain. Neuro: Level of Consciousness is awake, alert, obeys commands, Oriented to person, place, time, situation, Gait is steady. Respiratory: Respiratory effort is even, unlabored. Historical: - Allergies: 14:56 NKA; sv - PMHx: 14:56 ADD/ADHD; Anxiety; Bipolar disorder; Chronic pain; hemorrhoids; psychiatric; Seizures; sv Screenin:17 Abuse screen: Denies threats or abuse. Denies injuries from another. Nutritional sv screening: No deficits noted. Tuberculosis screening: No symptoms or risk factors identified. Fall Risk None identified. Assessment: 17:18 Reassessment: Patient appears in no apparent distress at this time. No changes from sv previously documented assessment. Patient and/or family updated on plan of care and expected duration. Pain level reassessed. Patient is alert, oriented x 3, equal unlabored respirations, skin warm/dry/pink. Vital Signs: 14:56 BP 122 / 64; Pulse 70; Resp 16; Temp 98; Pulse Ox 99% ; sv ED Course: 14:39 Patient arrived in ED. rg4 14:55 Triage completed. sv 14:55 Arm band placed on. sv 17:10 Boris Olivera MD is Attending Physician. kdr 17:17 Samantha Pitts RN is Primary Nurse. sv 17:17 ED physician to see patient. sv 17:17 Patient has correct armband on for positive identification. Bed in low position. sv 17:26 No provider procedures requiring assistance completed. Patient did not have IV access sv during this emergency room visit. 19:21 Primary Nurse role handed off by Samantha Pitts RN sv Administered Medications: No medications were administered Outcome: 17:26 Medical screen evaluation completed per provider. Patient declined treatment. sv 17:26 Condition: stable 17:26 Following a medical screening exam, the patient was provided information regarding alternative care sites and resources available per registration personnel. 17:26 Patient left the ED. sv 18:03 Discharge ordered by . kdr Signatures: Samantha Pitts RN RN sv Boris Olivera MD MD kdr Ania Ocasio rg4 Corrections: (The following items were deleted from the chart) 19:18 18:20 Patient left the ED. sv sv
--- NOTE | 2020-06-15 18:04 | EDPHYS ---
Physician Documentation [facility] Name: Sidra Hodges Age: 45 yrs Sex: Female : 1975 Arrival Date: 06/15/2020 Time: 14:39 Bed 23 Private MD: ED Physician Boris Olivera HPI: 06/15 17:37 This 45 yrs old Female presents to ER via EMS with complaints of Wants Covid kdr Test. 17:37 The patient states that she needs a repeat COVID test so that she can move back to her kdr home. She does not believe that she was positive. Her initial test was reported to have been positive bu there is no current documentation of that present. Onset: The symptoms/episode began/occurred at an unknown time. Severity of symptoms: At their worst the symptoms were very mild in the emergency department the symptoms are unchanged. The patient has not experienced similar symptoms in the past. The patient has been recently seen by a physician:. Historical: - Allergies: 14:56 NKA; sv - PMHx: 14:56 ADD/ADHD; Anxiety; Bipolar disorder; Chronic pain; hemorrhoids; psychiatric; Seizures; sv ROS: 17:37 Constitutional: Negative for fever, chills, and weight loss, Eyes: Negative for injury, kdr pain, redness, and discharge, ENT: Negative for injury, pain, and discharge, Neck: Negative for injury, pain, and swelling, Cardiovascular: Negative for chest pain, palpitations, and edema, Respiratory: Negative for shortness of breath, cough, wheezing, and pleuritic chest pain, Abdomen/GI: Negative for abdominal pain, nausea, vomiting, diarrhea, and constipation, Back: Negative for injury and pain, : Negative for injury, bleeding, discharge, and swelling, MS/Extremity: Negative for injury and deformity, Skin: Negative for injury, rash, and discoloration, Neuro: Negative for headache, weakness, numbness, tingling, and seizure activity. Psych: Negative for depression, anxiety, suicide ideation, homicidal ideation, and hallucinations, Allergy/Immunology: Negative for hives, rash, and allergies, Endocrine: Negative for neck swelling, polydipsia, polyuria, polyphagia, and marked weight changes, Hematologic/Lymphatic: Negative for swollen nodes, abnormal bleeding, and unusual bruising. Exam: 17:37 Constitutional: This is a well developed, well nourished patient who is awake, alert, kdr and in no acute distress. Head/Face: Normocephalic, atraumatic. Neck: Trachea midline, no thyromegaly or masses palpated, and no cervical lymphadenopathy. Supple, full range of motion without nuchal rigidity, or vertebral point tenderness. No Meningismus. Neuro: Awake and alert, GCS 15, oriented to person, place, time, and situation. Cranial nerves II-XII grossly intact. Motor strength 5/5 in all extremities. Sensory grossly intact. Cerebellar exam normal. Normal gait. Vital Signs: 14:56 BP 122 / 64; Pulse 70; Resp 16; Temp 98; Pulse Ox 99% ; sv MDM: 17:37 Data reviewed: vital signs, nurses notes. Counseling: I had a detailed discussion with kdr the patient and/or guardian regarding: the historical points, exam findings, and any diagnostic results supporting the discharge/admit diagnosis, the need for outpatient follow up. 18:03 Patient medically screened. kdr Administered Medications: No medications were administered Disposition: 17:22 Wants repeat COVID. kdr Disposition: 06/15/20 18:03 Discharged to Home. Impression: Wants COVID Test. - Condition is Stable. - Medication Reconciliation Form, Thank You Letter, Antibiotic Education, Prescription Opioid Use form. - Follow up: Private Physician; When: 2 - 3 days; Reason: If symptoms return, Further diagnostic work-up, Recheck today's complaints, Continuance of care, Re-evaluation by your physician. - Problem is an ongoing problem. - Symptoms are unchanged. Signatures: Samantha Pitts RN RN Boris Olivera MD MD [facility] Corrections: (The following items were deleted from the chart) 18:20 18:03 06/15/2020 18:03 Discharged to Home. Impression: Wants COVID Test. Condition is sv Stable. Forms are Medication Reconciliation Form, Thank You Letter, Antibiotic Education, Prescription Opioid Use. Follow up: Private Physician; When: 2 - 3 days; Reason: If symptoms return, Further diagnostic work-up, Recheck today's complaints, Continuance of care, Re-evaluation by your physician. Problem is an ongoing problem. Symptoms are unchanged. kdr
== END 2020-06-15 18:20 | disposition home or self-care (01) ==
DX: Z20.828 Contact with and (suspected) exposure to other viral communicable diseases (principal)
CPT/HCPCS: 99282

== ENCOUNTER 2020-08-30 18:42 | Emergency (ER) | payer SELFPAY ==
--- OUTSIDE RECORDS SUMMARY | 2020-08-30 18:45 | XMS REPORT | Continuity of Care Document ---
:1975 Author Organization [facility] t Address [address] [place] [address] Care Team Providers Name Role Phone Marissa Dorado Attending Clinician Favian CROFT Attending Clinician Nathan BARRETO Attending Clinician Unknown Attending Clinician Unavailable Shelbie BARRETO S Attending Clinician James LINDA G Attending Clinician Problems This patient has no known problems. Allergies, Adverse Reactions, Alerts This patient has no known allergies or adverse reactions. Medications This patient has no known medications. Procedures This patient has no known procedures. Encounters Start End Encounter Admission Attending Care Care Encounter Source Date/Time Date/Time Type Type Clinicians Facility Department ID 2019-12-15 2019-12-15 Emergency Kp Gilliland [facility] [id number] 17:11:56 18:04:00 Marissa Gonzalez [id number] [place] [id number] [place] [id number] [id number] 2019-10-25 2019-10-25 Emergency YUDITH Ballesteros [id number] 18:31:31 19:21:00 Dwaine Gonzalez [id number] [place] [id number] [place] [id number] 2019-08-13 2019-08-13 Emergency [place], [facility] [id number] 13:30:00 14:36:00 Jerry Gonzalez [id number] [place] [id number] [place] [id number] 2019-07-22 2019-07-22 Emergency Unknown, Attending TRAUMA [id number] 13:42:11 19:02:00 Lisa Morfin [facility] [id number] [id number] [id number] 2019-01-21 2019-01-21 Emergency [facility], [facility] [id number] 18:38:01 19:59:00 Le Gonzalez [id number] [place] [id number] [place] [address] [id number] Results Test Description Test Time Test Comments Results Result Comments Source Valproic Acid Level 2019-01-12 08:03:22 Test Item Value Reference Range Interpretation Comme nts Valproic Acid Level (test code = Valproic Acid Level) 57.6 ug/mL(g) 50.0-100.0 Hemoglobin [id number] 09:36:00 Test Item Value Reference Range Interpretation Comments Hemoglobin A1c (test code 5.0 % 4.8-5.9 No n Diabetic = Hemoglobin A1c) 4.8-5.9%Di abetic <7.0% CT Shoulder w/o Contrast [id number] 16:49:13Patient: BHUMIKA JONES Date/Time01/09/2019 16:14 CDTReason for [...] Adam FSigned (Electronic Signature): 01/09/2019 4:49 pmRPR [id number] 21:33:20 Test Item Value Reference Range Interpretation [...] Expiration Dt) XR Shoulder Complete 2+ Views [id number] 15:41:25Patient: BHUMIKA JONES Date/Time01/07/2019 15:25 CDTReason for [...] CSigned (Electronic Signature): 01/07/2019 3:41 pmThyroid Stimulating [id number] 03:07:04 Test Item Value Reference Range Interpretation Comments TSH (test code = TSH) 9.650 mIU/mL 0.270-4.200 H Lipid [id number] 03:07:03 Test Item Value Reference Range Interpretation Comments Cholesterol Total 199 mg/dL 0-200 RISK OF HE ART (test code = DISEASEPublishe d by Cholesterol Total) [place] [employer] [place] Optimal Borderl ine [...] LDL/HDL Ratio=L DL Calc/HDL Chol HCG Qualitative [id number] 02:33:13 Test Item Value Reference Range Interpretation Comments HCG, Serum Qual (test code = HCG, Negative Serum Qual) Lot # (test code = Lot #) [id number] Expiration Dt (test code = 2020-04-23 N Expiration Dt) Neg Control (test code = Neg Negative Control) Pos Control (test code = Pos Positive Control) Internal QC (test code = Internal Acceptable QC) Drugs of Abuse Urine [id number] 18:58:11 Test Item Value Reference Range Interpretation [...] (test code = Cannabinoid Screen Ur) Alcohol [id number] 18:47:34 Test Item Value Reference Range Interpretation Comments Ethanol Level (test <0.00 g/dL 0.00-0.01 Intoxica isabel 0.080 g/dL code = Ethanol or more Level) Ethanol Inst (test <0 N code = Ethanol Inst) Comprehensive Metabolic [id number] 18:47:33 Test Item Value Reference Range Interpretation [...] A/G 1.0 ratio N Ratio) Comprehensive Metabolic [id number] 18:47:33 Test Item Value Reference Range Interpretation [...] National Kidney Foundation, http://nkdep.ni h.gov Comprehensive Metabolic [id number] 18:47:33 Test Item Value Reference Range Interpretation [...] ag e have not been validated by [facility] MDRD study and should be [...] ag e have not been validated by [facility] MDRD study and should be interpreted wit h caution. eGFR R esult Interpretation: eGFR > or = 60 is in the Normal RangeeGF R < 60 may mean kid betzaida diseaseeGFR < 1 5 may mean kidney failure Rang es recommended by the National Kidney Foundation, http://nkdep.ni h.gov Complete Blood Count with [id number] 18:15:23 Test Item Value Reference Range Interpretation [...] code = IPF) 0 % N Automated [id number] 18:15:23 Test Item Value Reference Range Interpretation Comments Neutro Auto (test code = Neutro 42.1 % 36.0-70.0 Auto) Lymph Auto (test code = Lymph Auto) 40.0 % 12.0-44.0 [place] Auto (test code = [place] Auto) 12.2 % 0.0-11.0 H Eos, Auto (test code = Eos, Auto) 4.9 % 0.0-7.0 Basophil Auto (test code = Basophil 0.6 % 0.0-2.0 Auto) Neutro Absolute (test code = Neutro 2.2 x10 1.6-7.4 Absolute) Lymph Absolute (test code = Lymph 2.06 x10 .50-4.60 Absolute) [place] Absolute (test code = [place] .63 x10 .00-1.20 Absolute) Eos Absolute (test code = Eos 0.25 x10 0.00-0.74 Absolute) Baso Absolute (test code = Baso 0.03 x10 0.00-0.21 Absolute) IG [id number] 18:15:23 Test Item Value Reference Range Interpretation Comments IG (test code = IG) 0.2 % 0.0-5.0 IG Abs (test code = IG Abs) 0 x10 N
--- NOTE | 2020-08-30 20:26 | ER ---
Nurse's Notes [facility] Name: Sidra Hodges Age: 45 yrs Sex: Female : 1975 Arrival Date: 08/30/2020 Time: 18:45 Bed Waiting Private MD: Diagnosis: Presentation: 08/30 18:51 Chief complaint: Patient states: Anxiety and pain for 3 days. No fever. No N/V/D. ll1 Coronavirus screen: Client denies travel out of the [place] in the last 14 days. At this time, the client does not indicate any symptoms associated with coronavirus-19. Ebola Screen: Patient denies travel to an Ebola-affected area in the 21 days before illness onset. Initial Sepsis Screen: Does the patient meet any 2 criteria? No. Patient's initial sepsis screen is negative. Does the patient have a suspected source of infection? No. Patient's initial sepsis screen is negative. Risk Assessment: Do you want to hurt yourself or someone else? Patient reports no desire to harm self or others. Onset of symptoms was August 28, 2020. 18:51 Method Of Arrival: EMS ll1 18:51 Acuity: CARMITA 4 ll1 18:56 Chief complaint: EMS states: Brought her in with no chief complaint. Stated she ll1 wouldn't speak to them or answer any questions. VSS. Historical: - Allergies: 18:53 NKA; ll1 18:53 CARBAMAZEPINE DERIVATIVES; ll1 18:53 Depakote; ll1 18:53 Tegretol; ll1 - PMHx: 18:53 ADD/ADHD; Anxiety; Bipolar disorder; Chronic pain; hemorrhoids; psychiatric; Seizures; ll1 - Immunization history:: Flu vaccine is up to date. - Social history:: Smoking status: Patient denies any tobacco usage or history of. Vital Signs: 18:51 BP 130 / 80; Pulse 83; Resp 17; Temp 98.2; Pulse Ox 98% ; Pain 8/10; ll1 ED Course: 18:45 Patient arrived in ED. mr 18:52 Triage completed. ll1 18:54 Arm band placed on. 1 19:38 Artur Watkins [facility] 19:38 Jose Armando Tavera MD is Attending Physician. [facility] Administered Medications: No medications were administered Outcome: 20:26 Patient left the ED. ll1 Signatures: Artur Watkins PA PA [facility] [place] [facility] mr Juan Bach, RN RN ll1
[2020-08-31 14:42] VITALS: BP 130/80; TEMP 98.2; O2SAT 98
== END 2020-08-30 20:26 | disposition left against medical advice (07) ==
LOC: ER 18:42
DX: Z02.9 Encounter for administrative examinations, unspecified (principal)
CPT/HCPCS: 99282

== ENCOUNTER 2020-10-23 18:41 | Emergency (ER) | payer SELFPAY ==
--- OUTSIDE RECORDS SUMMARY | 2020-10-23 18:44 | XMS REPORT | Continuity of Care Document ---
:1975 Author Organization [facility] t Address [address] [place] [address] Care Team Providers Name Role Phone Marissa [...] Emergency Kp [place]and [facility] [id number] 17:11:56 18:04:00 Marissa Gonzalez [id number] [place] [id number] [place] [id number] 2019-10-25 2019-10-25 Emergency YUDITH Ballesteros [id number] 18:31:31 19:21:00 Dwaine Gonzalez [id number] [place] [id number] [place] [id number] 2019-08-13 2019-08-13 Emergency [place], [facility] [id number] 13:30:00 14:36:00 Jerry Gonzalez [id number] [place] [id number] [place] [id number] 2019-07-22 2019-07-22 Emergency Unknown, Attending TRAUMA [id number] 13:42:11 19:02:00 Lisa Morfin [facility] [id number] [id number] [id number] 2019-01-21 2019-01-21 Emergency [facility], [facility] [id number] 18:38:01 19:59:00 Le Gonzalez [id number] [place] [id number] [place] [address] [id number] Results Test Description Test Time Test Comments Results Result Comments Source Valproic Acid Level 2019-01-12 08:03:22 Test Item Value Reference Range Interpretation Comme nts Valproic Acid Level (test code = Valproic Acid Level) 57.6 ug/mL(g) 50.0-100.0 Hemoglobin [id number] 09:36:00 Test Item Value Reference Range Interpretation Comments Hemoglobin A1c (test code 5.0 % 4.8-5.9 No n Diabetic = Hemoglobin A1c) 4.8-5.9%Di abetic <7.0% CT Shoulder w/o Contrast [id number] 16:49:13Patient: BHUMIKA JONES Date/Time01/09/2019 16:14 CDTReason for [...] Adam FSigned (Electronic Signature): 01/09/2019 4:49 pmRPR [id number] 21:33:20 Test Item Value Reference Range Interpretation [...] Expiration Dt) XR Shoulder Complete 2+ Views [id number] 15:41:25Patient: BHUMIKA JONES Date/Time01/07/2019 15:25 CDTReason for [...] CSigned (Electronic Signature): 01/07/2019 3:41 pmThyroid Stimulating [id number] 03:07:04 Test Item Value Reference Range Interpretation Comments TSH (test code = TSH) 9.650 mIU/mL 0.270-4.200 H Lipid [id number] 03:07:03 Test Item Value Reference Range Interpretation Comments Cholesterol Total 199 mg/dL 0-200 RISK OF HE ART (test code = DISEASEPublishe d by Cholesterol Total) Citizen [place] Heart Association [place] Optimal Borderl ine [...] LDL/HDL Ratio=L DL Calc/HDL Chol HCG Qualitative [id number] 02:33:13 Test Item Value Reference Range Interpretation Comments HCG, Serum Qual (test code = HCG, Negative Serum Qual) Lot # (test code = Lot #) [id number] Expiration Dt (test code = 2020-04-23 N Expiration Dt) Neg Control (test code = Neg Negative Control) Pos Control (test code = Pos Positive Control) Internal QC (test code = Internal Acceptable QC) Drugs of Abuse Urine [id number] 18:58:11 Test Item Value Reference Range Interpretation [...] (test code = Cannabinoid Screen Ur) Alcohol [id number] 18:47:34 Test Item Value Reference Range Interpretation Comments Ethanol Level (test <0.00 g/dL 0.00-0.01 Intoxica isabel 0.080 g/dL code = Ethanol or more Level) Ethanol Inst (test <0 N code = Ethanol Inst) Comprehensive Metabolic [id number] 18:47:33 Test Item Value Reference Range Interpretation [...] A/G 1.0 ratio N Ratio) Comprehensive Metabolic [id number] 18:47:33 Test Item Value Reference Range Interpretation [...] National Kidney Foundation, http://nkdep.ni h.gov Comprehensive Metabolic [id number] 18:47:33 Test Item Value Reference Range Interpretation [...] Foundation, http://nkdep.ni h.gov Complete Blood Count with [id number] 18:15:23 Test Item Value Reference Range Interpretation [...] code = IPF) 0 % N Automated [id number] 18:15:23 Test Item Value Reference Range Interpretation Comments Neutro Auto (test code = Neutro 42.1 % 36.0-70.0 Auto) Lymph Auto (test code = Lymph Auto) 40.0 % 12.0-44.0 [place] Auto (test code = [place] Auto) 12.2 % 0.0-11.0 H Eos, Auto (test code = Eos, Auto) 4.9 % 0.0-7.0 Basophil Auto (test code = Basophil 0.6 % 0.0-2.0 Auto) Neutro Absolute (test code = Neutro 2.2 x10 1.6-7.4 Absolute) Lymph Absolute (test code = Lymph 2.06 x10 .50-4.60 Absolute) [place] Absolute (test code = [place] .63 x10 .00-1.20 Absolute) Eos Absolute (test code = Eos 0.25 x10 0.00-0.74 Absolute) Baso Absolute (test code = Baso 0.03 x10 0.00-0.21 Absolute) IG [id number] 18:15:23 Test Item Value Reference Range Interpretation Comments IG (test code = IG) 0.2 % 0.0-5.0 IG Abs (test code = IG Abs) 0 x10 N
--- NOTE | 2020-10-23 20:52 | RAD REPORT ---
EXAM DESCRIPTION: RAD - Hip Right 2 View - 10/23/2020 8:39 pm CLINICAL HISTORY: PAIN FINDINGS: Mild arthritic changes. No acute fracture or dislocation.
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
--- NOTE | 2020-10-23 21:07 | ER ---
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 Coronavirus screen: Client ca1 denies travel out of the [place] in the last 14 days. At this time, the client does not indicate any symptoms associated with coronavirus-19. Ebola Screen: Patient negative for fever greater than or equal to 101.5 degrees Fahrenheit, and additional compatible Ebola Virus Disease symptoms Patient denies exposure to infectious person. Patient denies travel to an Ebola-affected area in the 21 days before illness onset. No symptoms or risks identified at this time. Initial Sepsis Screen: Does the patient meet any 2 criteria? No. Patient's initial sepsis screen is negative. Does the patient have a suspected source of infection? No. Patient's initial sepsis screen is negative. Risk Assessment: Do you want to hurt yourself or someone else? Patient reports no desire to harm self or others. Onset of symptoms was October 23, 2020. 19:47 Method Of Arrival: Wheelchair ca1 19:47 Acuity: CARMITA 3 ca1 Triage Assessment: 20:30 General: Appears in no apparent distress. Behavior is calm, cooperative. iw Historical: - Allergies: 19:49 CARBAMAZEPINE DERIVATIVES; ca1 19:49 Depakote; ca1 19:49 Tegretol; ca1 - PMHx: 19:49 ADD/ADHD; Anxiety; Bipolar disorder; Chronic pain; hemorrhoids; psychiatric; Seizures; ca1 - Immunization history:: Client reports receiving the 2nd dose of the Covid vaccine, Client reports receiving the 1st dose of the Covid vaccine. - Social history:: Smoking status: Patient denies any tobacco usage or history of. Screenin:25 Abuse screen: Denies threats or abuse. Denies injuries from another. Nutritional iw screening: No deficits noted. Tuberculosis screening: No symptoms or risk factors identified. Fall Risk None identified. Assessment: 20:30 General: Appears in no apparent distress. Behavior is calm, cooperative. Pain: iw Complains of pain in right hip. Neuro: Level of Consciousness is awake, alert, obeys commands, Oriented to person, place, time, situation. Cardiovascular: Patient's skin is warm and dry. Respiratory: Respiratory effort is even, unlabored, Respiratory pattern is regular. Derm: Skin is intact, is healthy with good turgor. Musculoskeletal: Range of motion: intact in all extremities. Vital Signs: 19:47 BP 119 / 79; Pulse 109; Resp 18 S; Temp 97.6(TE); Pulse Ox 99% on R/A; ca1 ED Course: 18:42 Patient arrived in ED. am2 19:49 Triage completed. ca1 19:49 Arm band placed on right wrist. ca1 19:59 Laila Foreman, GERONIMO is Primary Nurse. iw 20:07 Guero Yates NP is PHCP. pm1 20:07 Jose Armando Tavera MD is Attending Physician. pm1 20:39 Hip Right 2 View XRAY In Process Unspecified. EDMS Administered Medications: 21:00 Drug: Ibuprofen 600 mg Route: PO; iw 21:30 Follow up: Response: No adverse reaction iw Outcome: 21:06 Discharge ordered by . pm1 21:26 Discharged to home via wheelchair. iw 21:26 Condition: good 21:26 Discharge instructions given to patient, Instructed on discharge instructions, follow up and referral plans. medication usage, Demonstrated understanding of instructions, follow-up care, medications, Prescriptions given X 1. 21:27 Patient left the ED. iw Signatures: Dispatcher [employer] EDMS Laila Foreman RN RN iw Guero Yates NP RADIOPHONE OPERATOR pm1 Kateryna Parker am2 Crissy Moss RN RN ca1
[2020-10-23] MEDS ORDERED: IBUPROFEN 200 MG TAB PO ONE (21:14)
[2020-10-23 21:52] VITALS: BP 119/79; TEMP 97.6; O2SAT 99
== END 2020-10-23 21:27 | disposition home or self-care (01) ==
LOC: ER 18:41
DX: S70.01XA Contusion of right hip, initial encounter (principal); F41.9 Anxiety disorder, unspecified; F31.9 Bipolar disorder, unspecified; G89.29 Other chronic pain; X58.XXXA Exposure to other specified factors, initial encounter
CPT/HCPCS: 99283

== ENCOUNTER 2020-10-31 15:02 | Emergency (ER) | payer SELFPAY ==
--- OUTSIDE RECORDS SUMMARY | 2020-10-31 15:05 | XMS REPORT | Continuity of Care Document ---
:1975 Author Organization [facility] t Address [address] [place] [address] Care Team Providers Name Role Phone Marissa [...] ID 2019-12-15 2019-12-15 Emergency Kp [place] [facility] [id number] 17:11:56 18:04:00 Marissa Gonzalez [id number] [place] [id number] [place] [id number] 2019-10-25 2019-10-25 Emergency YUDITH Ballesteros [id number] 18:31:31 19:21:00 Dwaine Gonzalez [id number] [place] [id number] [place] [id number] 2019-08-13 2019-08-13 Emergency [place], [facility] [id number] 13:30:00 14:36:00 Jerry Goznalez [id number] [place] [id number] [place] [id number] [id number] 2019-07-22 2019-07-22 Emergency Unknown, Attending TRAUMA [id number] 13:42:11 19:02:00 iLsa Morfin [facility] [id number] [id number] [id number] 2019-01-21 2019-01-21 Emergency [facility], [facility] [id number] 18:38:01 19:59:00 Le Gonzalez [id number] [place] [id number] [place] [address] [phone] [id number] Results Test Description Test Time Test Comments Results Result Comments Source Valproic Acid Level 2019-01-12 08:03:22 Test Item Value Reference Range Interpretation Comme nts Valproic Acid Level (test code = Valproic Acid Level) 57.6 ug/mL(g) 50.0-100.0 Hemoglobin [id number] 09:36:00 Test Item Value Reference Range Interpretation Comments Hemoglobin A1c (test code 5.0 % 4.8-5.9 No n Diabetic = Hemoglobin A1c) 4.8-5.9%Di abetic <7.0% CT Shoulder w/o Contrast [id number] 16:49:13Patient: BHUMIKA JONES Date/Time01/09/2019 16:14 CDTReason for [...] Adam FSigned (Electronic Signature): 01/09/2019 4:49 pmRPR [id number] 21:33:20 Test Item Value Reference Range Interpretation [...] Expiration Dt) XR Shoulder Complete 2+ Views [id number] 15:41:25Patient: BHUMIKA JONES Date/Time01/07/2019 15:25 CDTReason for [...] CSigned (Electronic Signature): 01/07/2019 3:41 pmThyroid Stimulating [id number] 03:07:04 Test Item Value Reference Range Interpretation Comments TSH (test code = TSH) 9.650 mIU/mL 0.270-4.200 H Lipid [id number] 03:07:03 Test Item Value Reference Range Interpretation Comments Cholesterol Total 199 mg/dL 0-200 RISK OF HE ART (test code = DISEASEPublishe d by Cholesterol Total) [place] [employer] [place] Optimal Borderl ine [...] LDL/HDL Ratio=L DL Calc/HDL Chol HCG Qualitative [id number] 02:33:13 Test Item Value Reference Range Interpretation Comments HCG, Serum Qual (test code = HCG, Negative Serum Qual) Lot # (test code = Lot #) [id number] N Expiration Dt (test code = 2020-04-23 N Expiration Dt) Neg Control (test code = Neg Negative Control) Pos Control (test code = Pos Positive Control) Internal QC (test code = Internal Acceptable QC) Drugs of Abuse Urine [id number] 18:58:11 Test Item Value Reference Range Interpretation [...] (test code = Cannabinoid Screen Ur) Alcohol [id number] 18:47:34 Test Item Value Reference Range Interpretation Comments Ethanol Level (test <0.00 g/dL 0.00-0.01 Intoxica isabel 0.080 g/dL code = Ethanol or more Level) Ethanol Inst (test <0 N code = Ethanol Inst) Comprehensive Metabolic [id number] 18:47:33 Test Item Value Reference Range Interpretation [...] A/G 1.0 ratio N Ratio) Comprehensive Metabolic [id number] 18:47:33 Test Item Value Reference Range Interpretation [...] National Kidney Foundation, http://nkdep.ni h.gov Comprehensive Metabolic [id number] 18:47:33 Test Item Value Reference Range Interpretation [...] ag e have not been validated by [facility] MDRD study and should be [...] ag e have not been validated by [facility] MDRD study and should be interpreted wit h caution. eGFR R esult Interpretation: eGFR > or = 60 is in the Normal RangeeGF R < 60 may mean kid betzaida diseaseeGFR < 1 5 may mean kidney failure Rang es recommended by the National Kidney Foundation, http://nkdep.ni h.gov Complete Blood Count with [id number] 18:15:23 Test Item Value Reference Range Interpretation [...] code = IPF) 0 % N Automated [id number] 18:15:23 Test Item Value Reference Range Interpretation Comments Neutro Auto (test code = Neutro 42.1 % 36.0-70.0 Auto) Lymph Auto (test code = Lymph Auto) 40.0 % 12.0-44.0 Ware Auto (test code = Ware Auto) 12.2 % 0.0-11.0 H Eos, Auto (test code = Eos, Auto) 4.9 % 0.0-7.0 Basophil Auto (test code = Basophil 0.6 % 0.0-2.0 Auto) Neutro Absolute (test code = Neutro 2.2 x10 1.6-7.4 Absolute) Lymph Absolute (test code = Lymph 2.06 x10 .50-4.60 Absolute) Ware Absolute (test code = Ware .63 x10 .00-1.20 Absolute) Eos Absolute (test code = Eos 0.25 x10 0.00-0.74 Absolute) Baso Absolute (test code = Baso 0.03 x10 0.00-0.21 Absolute) IG [id number] 18:15:23 Test Item Value Reference Range Interpretation Comments IG (test code = IG) 0.2 % 0.0-5.0 IG Abs (test code = IG Abs) 0 x10 N
--- NOTE | 2020-10-31 15:47 | ER ---
Nurse's Notes [facility] Name: Sidra Hodges Age: 45 yrs Sex: Female : 1975 Arrival Date: 10/31/2020 Time: 15:03 Bed Waiting Private MD: Diagnosis: Presentation: 10/31 15:44 Chief complaint: EMS states: "this is the 2 nd time we have ran on her today. she won't jd3 give us a report of what is wrong other than needing to go to the hospital. the only thing we can guess is that she is showing signs of hip and backside pain. again she is refusing to give us or tell us any information.". 15:44 Method Of Arrival: EMS: [facility] jd3 15:44 Acuity: CARMITA 4 jd3 ED Course: 15:03 Patient arrived in ED. am2 15:45 Triage completed. jd3 Administered Medications: No medications were administered Outcome: 15:46 Patient left the ED. jd3 Signatures: Kateryna Parker [facility] Dariusz Nunez, RN RN jd3
== END 2020-10-31 15:46 | disposition left against medical advice (07) ==
LOC: ER 15:02
DX: Z53.21 Procedure and treatment not carried out due to patient leaving prior to being seen by health care provider (principal)
CPT/HCPCS: 99282

== ENCOUNTER 2021-01-06 17:19 | Emergency (ER) | payer SELFPAY ==
--- OUTSIDE RECORDS SUMMARY | 2021-01-06 17:22 | XMS REPORT | Continuity of Care Document ---
:1975 Author Organization [facility] t Address [address] [place] [address] Care Team Providers Name Role Phone Marissa [...] Department ID 2019-12-15 2019-12-15 Emergency Kp [place] [facility] [id number] 17:11:56 18:04:00 Marissa Gonzalez [id number] [place] [id number] [place] [id number] 2019-10-25 2019-10-25 Emergency YUDITH Ballesteros [id number] 18:31:31 19:21:00 Dwaine Gonzalez [id number] [place] [id number] [place] [id number] 2019-08-13 2019-08-13 Emergency [place], [facility] [id number] 13:30:00 14:36:00 Jerry Gonzalez [id number] [place] [id number] [place] [id number] 2019-07-22 2019-07-22 Emergency Unknown, Attending TRAUMA 1.2.8 [id number] 13:42:11 19:02:00 Shelbie, Lisa [facility] [id number] [id number] 2019-01-21 2019-01-21 Emergency [facility], [facility] [id number] 18:38:01 19:59:00 Le Gonzalez [id number] [place] [id number] [place] [address] [id number] [id number] Results Test Description Test Time Test Comments Results Result Comments Source Valproic Acid Level 2019-01-12 08:03:22 Test Item Value Reference Range Interpretation Comme nts Valproic Acid Level (test code = Valproic Acid Level) 57.6 ug/mL(g) 50.0-100.0 Hemoglobin [id number] 09:36:00 Test Item Value Reference Range Interpretation Comments Hemoglobin A1c (test code 5.0 % 4.8-5.9 No n Diabetic = Hemoglobin A1c) 4.8-5.9%Di abetic <7.0% CT Shoulder w/o Contrast [id number] 16:49:13Patient: BHUMIKA JONES Date/Time01/09/2019 16:14 CDTReason for [...] Adam FSigned (Electronic Signature): 01/09/2019 4:49 pmRPR [id number] 21:33:20 Test Item Value Reference Range Interpretation [...] Expiration Dt) XR Shoulder Complete 2+ Views [id number] 15:41:25Patient: BHUMIKA JONES Date/Time01/07/2019 15:25 CDTReason for [...] CSigned (Electronic Signature): 01/07/2019 3:41 pmThyroid Stimulating [id number] 03:07:04 Test Item Value Reference Range Interpretation Comments TSH (test code = TSH) 9.650 mIU/mL 0.270-4.200 H Lipid [id number] 03:07:03 Test Item Value Reference Range Interpretation Comments Cholesterol Total 199 mg/dL 0-200 RISK OF HE ART (test code = DISEASEPublishe d by Cholesterol Total) [place] [employer] [place] Optimal Borderl ine [...] LDL/HDL Ratio=L DL Calc/HDL Chol HCG Qualitative [id number] 02:33:13 Test Item Value Reference Range Interpretation Comments HCG, Serum Qual (test code = HCG, Negative Serum Qual) Lot # (test code = Lot #) [id number] N Expiration Dt (test code = 2020-04-23 N Expiration Dt) Neg Control (test code = Neg Negative Control) Pos Control (test code = Pos Positive Control) Internal QC (test code = Internal Acceptable QC) Drugs of Abuse Urine [id number] 18:58:11 Test Item Value Reference Range Interpretation [...] (test code = Cannabinoid Screen Ur) Alcohol [id number] 18:47:34 Test Item Value Reference Range Interpretation Comments Ethanol Level (test <0.00 g/dL 0.00-0.01 Intoxica isabel 0.080 g/dL code = Ethanol or more Level) Ethanol Inst (test <0 N code = Ethanol Inst) Comprehensive Metabolic [id number] 18:47:33 Test Item Value Reference Range Interpretation [...] A/G 1.0 ratio N Ratio) Comprehensive Metabolic [id number] 18:47:33 Test Item Value Reference Range Interpretation [...] National Kidney Foundation, http://nkdep.ni h.gov Comprehensive Metabolic [id number] 18:47:33 Test Item Value Reference Range Interpretation [...] ag e have not been validated by [facility] MDRD study and should be [...] ag e have not been validated by [facility] MDRD study and should be interpreted wit h caution. eGFR R esult Interpretation: eGFR > or = 60 is in the Normal RangeeGF R < 60 may mean kid betzaida diseaseeGFR < 1 5 may mean kidney failure Rang es recommended by the National Kidney Foundation, http://nkdep.ni h.gov Complete Blood Count with [id number] 18:15:23 Test Item Value Reference Range Interpretation [...] code = IPF) 0 % N Automated [id number] 18:15:23 Test Item Value Reference Range Interpretation Comments Neutro Auto (test code = Neutro 42.1 % 36.0-70.0 Auto) Lymph Auto (test code = Lymph Auto) 40.0 % 12.0-44.0 Citrus Auto (test code = Citrus Auto) 12.2 % 0.0-11.0 H Eos, Auto (test code = Eos, Auto) 4.9 % 0.0-7.0 Basophil Auto (test code = Basophil 0.6 % 0.0-2.0 Auto) Neutro Absolute (test code = Neutro 2.2 x10 1.6-7.4 Absolute) Lymph Absolute (test code = Lymph 2.06 x10 .50-4.60 Absolute) Citrus Absolute (test code = Citrus .63 x10 .00-1.20 Absolute) Eos Absolute (test code = Eos 0.25 x10 0.00-0.74 Absolute) Baso Absolute (test code = Baso 0.03 x10 0.00-0.21 Absolute) IG [id number] 18:15:23 Test Item Value Reference Range Interpretation Comments IG (test code = IG) 0.2 % 0.0-5.0 IG Abs (test code = IG Abs) 0 x10 N
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
[2021-01-06] MEDS ORDERED: IBUPROFEN 400 MG TAB ONE (19:42)
[2021-01-06 19:58] VITALS: BP 119/72; TEMP 98.5; O2SAT 100
== END 2021-01-06 19:40 | disposition home or self-care (01) ==
LOC: ER 17:19
DX: M54.2 Cervicalgia (principal); G89.29 Other chronic pain; F90.9 Attention-deficit hyperactivity disorder, unspecified type; F41.9 Anxiety disorder, unspecified; F31.9 Bipolar disorder, unspecified
CPT/HCPCS: 99283

== ENCOUNTER 2021-02-17 00:24 | Emergency (ER) | payer SELFPAY ==
--- OUTSIDE RECORDS SUMMARY | 2021-02-17 00:27 | XMS REPORT | Continuity of Care Document ---
:1975 Author Organization [facility] t Address [address] [place] [address] Care Team Providers Name Role Phone Marissa [...] Department ID 2019-12-15 2019-12-15 Emergency [place] [facility] [id number] 17:11:56 18:04:00 Marissa Gonzalez [id number] [place] [id number] [place] [id number] [id number] 2019-10-25 2019-10-25 Emergency YUDITH Ballesteros [id number] 18:31:31 19:21:00 Dwaine Gonzalez [id number] [place] [id number] [place] [id number] 2019-08-13 2019-08-13 Emergency [place], [facility] [id number] 13:30:00 14:36:00 Jerry Gonzalez [id number] [place] [id number] [place] [id number] 2019-07-22 2019-07-22 Emergency Unknown, Attending TRAUMA [id number] 13:42:11 19:02:00 Shelbie, Lisa [facility] [id number] 2019-01-21 2019-01-21 Emergency [facility], [facility] [id number] 18:38:01 19:59:00 Le Gonzalez [id number] [place] [id number] [place] [address] [id number] [id number] Results Test Description Test Time Test Comments Results Result Comments Source Valproic Acid Level 2019-01-12 08:03:22 Test Item Value Reference Range Interpretation Comme nts Valproic Acid Level (test code = Valproic Acid Level) 57.6 ug/mL(g) 50.0-100.0 Hemoglobin [id number] 09:36:00 Test Item Value Reference Range Interpretation Comments Hemoglobin A1c (test code 5.0 % 4.8-5.9 No n Diabetic = Hemoglobin A1c) 4.8-5.9%Di abetic <7.0% CT Shoulder w/o Contrast [id number] 16:49:13Patient: BHUMIKA JONES Date/Time01/09/2019 16:14 CDTReason for [...] Adam FSigned (Electronic Signature): 01/09/2019 4:49 pmRPR [id number] 21:33:20 Test Item Value Reference Range Interpretation [...] Expiration Dt) XR Shoulder Complete 2+ Views [id number] 15:41:25Patient: BHUMIKA JONES Date/Time01/07/2019 15:25 CDTReason for [...] CSigned (Electronic Signature): 01/07/2019 3:41 pmThyroid Stimulating [id number] 03:07:04 Test Item Value Reference Range Interpretation Comments TSH (test code = TSH) 9.650 mIU/mL 0.270-4.200 H Lipid [id number] 03:07:03 Test Item Value Reference Range Interpretation Comments Cholesterol Total 199 mg/dL 0-200 RISK OF HE ART (test code = DISEASEPublishe d by Cholesterol Total) [place] [employer] [place] Optimal Borderl ine [...] LDL/HDL Ratio=L DL Calc/HDL Chol HCG Qualitative [id number] 02:33:13 Test Item Value Reference Range Interpretation Comments HCG, Serum Qual (test code = HCG, Negative Serum Qual) Lot # (test code = Lot #) [id number] Expiration Dt (test code = 2020-04-23 N Expiration Dt) Neg Control (test code = Neg Negative Control) Pos Control (test code = Pos Positive Control) Internal QC (test code = Internal Acceptable QC) Drugs of Abuse Urine [id number] 18:58:11 Test Item Value Reference Range Interpretation [...] (test code = Cannabinoid Screen Ur) Alcohol [id number] 18:47:34 Test Item Value Reference Range Interpretation Comments Ethanol Level (test <0.00 g/dL 0.00-0.01 Intoxica isabel 0.080 g/dL code = Ethanol or more Level) Ethanol Inst (test <0 N code = Ethanol Inst) Comprehensive Metabolic [id number] 18:47:33 Test Item Value Reference Range Interpretation [...] A/G 1.0 ratio N Ratio) Comprehensive Metabolic [id number] 18:47:33 Test Item Value Reference Range Interpretation [...] RangeeGF R < 60 may mean kid beztaida diseaseeGFR < 1 5 may mean kidney failure Rang es recommended by the National Kidney Foundation, http://nkdep.ni h.gov Comprehensive Metabolic [id number] 18:47:33 Test Item Value Reference Range Interpretation [...] ag e have not been validated by [facility] MDRD study and should be [...] ag e have not been validated by [facility] MDRD study and should be interpreted wit h caution. eGFR R esult Interpretation: eGFR > or = 60 is in the Normal RangeeGF R < 60 may mean kid betzaida diseaseeGFR < 1 5 may mean kidney failure Rang es recommended by the National Kidney Foundation, http://nkdep.ni h.gov Complete Blood Count with [id number] 18:15:23 Test Item Value Reference Range Interpretation [...] code = IPF) 0 % N Automated [id number] 18:15:23 Test Item Value Reference Range Interpretation Comments Neutro Auto (test code = Neutro 42.1 % 36.0-70.0 Auto) Lymph Auto (test code = Lymph Auto) 40.0 % 12.0-44.0 Preble Auto (test code = Preble Auto) 12.2 % 0.0-11.0 H Eos, Auto (test code = Eos, Auto) 4.9 % 0.0-7.0 Basophil Auto (test code = Basophil 0.6 % 0.0-2.0 Auto) Neutro Absolute (test code = Neutro 2.2 x10 1.6-7.4 Absolute) Lymph Absolute (test code = Lymph 2.06 x10 .50-4.60 Absolute) Preble Absolute (test code = Preble .63 x10 .00-1.20 Absolute) Eos Absolute (test code = Eos 0.25 x10 0.00-0.74 Absolute) Baso Absolute (test code = Baso 0.03 x10 0.00-0.21 Absolute) IG [id number] 18:15:23 Test Item Value Reference Range Interpretation Comments IG (test code = IG) 0.2 % 0.0-5.0 IG Abs (test code = IG Abs) 0 x10 N
--- NOTE | 2021-02-17 03:03 | ER ---
Nurse's Notes [facility] Name: Sidra Hodges Age: 46 yrs Sex: Female : 1975 Arrival Date: 02/17/2021 Time: 00:25 Bed 10 Private MD: Diagnosis: Unspecified hemorrhoids Presentation: 02/17 02:15 Chief complaint: Patient states: reports pain in rectum for 4 days, also reports blood. em Coronavirus screen: Client denies travel out of the [place] in the last 14 days. Ebola Screen: Patient negative for fever greater than or equal to 101.5 degrees Fahrenheit, and additional compatible Ebola Virus Disease symptoms Patient denies exposure to infectious person. Patient denies travel to an Ebola-affected area in the 21 days before illness onset. No symptoms or risks identified at this time. Initial Sepsis Screen: Does the patient meet any 2 criteria? HR > 90 bpm. No. Patient's initial sepsis screen is negative. Does the patient have a suspected source of infection? No. Patient's initial sepsis screen is negative. Risk Assessment: Do you want to hurt yourself or someone else? Patient reports no desire to harm self or others. Onset of symptoms was February 17, 2021. 02:15 Method Of Arrival: Ambulatory em 02:15 Acuity: CARMITA 5 em Historical: - Allergies: 02:17 CARBAMAZEPINE DERIVATIVES; em 02:17 Depakote; em 02:17 Tegretol; em - PMHx: 02:17 ADD/ADHD; Anxiety; Bipolar disorder; Chronic pain; hemorrhoids; psychiatric; Seizures; em - PSHx: 02:17 R LEG SX; em - Immunization history:: Client reports having NOT received the Covid vaccine. - Social history:: Smoking status: Patient denies any tobacco usage or history of. - Family history:: not pertinent. - Hospitalizations: : No recent hospitalization is reported. Screenin:19 Abuse screen: Denies threats or abuse. Nutritional screening: No deficits noted. em Tuberculosis screening: No symptoms or risk factors identified. Fall Risk None identified. Assessment: 02:19 General: Appears in no apparent distress. uncomfortable, Behavior is calm, cooperative, em appropriate for age. Pain: Complains of pain in buttocks. Neuro: Level of Consciousness is awake, alert, obeys commands, Oriented to person, place, time, situation. Cardiovascular: Capillary refill < 3 seconds Patient's skin is warm and dry. Respiratory: Airway is patent Respiratory effort is even, unlabored, Respiratory pattern is regular, symmetrical. Derm: Skin is intact, is healthy with good turgor, Skin is pink, warm \T\ dry. Musculoskeletal: Capillary refill < 3 seconds, Range of motion: intact in all extremities. Vital Signs: 02:15 BP 129 / 42; Pulse 103; Resp 18; Temp 98.1; Pulse Ox 100% on R/A; em 03:21 BP 118 / 67; Pulse 89; Resp 16; Pulse Ox 99% on R/A; em ED Course: 00:25 Patient arrived in ED. bp1 02:17 Triage completed. em 02:17 Arm band placed on. em 02:19 Florentin Heath, RN is Primary Nurse. em 02:19 Patient has correct armband on for positive identification. em 02:21 No provider procedures requiring assistance completed. Patient did not have IV access em during this emergency room visit. 02:27 Yong Banks MD is Attending Physician. rn 02:55 Served as a oracle business analyst during rectal exam. bb Administered Medications: 03:17 Drug: Viscous Lidocaine Liquid (4 %) 10 ml {Note: to affected area.} Route: Mucous bb Membrane; Outcome: 03:02 Discharge ordered by . rn 03:21 Discharged to home ambulatory. em 03:21 Condition: stable 03:21 Discharge instructions given to patient, Instructed on discharge instructions, follow up and referral plans. medication usage, Demonstrated understanding of instructions, follow-up care, medications, Prescriptions given X 2. 03:29 Patient left the ED. em Signatures: Florentin Heath, RN GERONIMO em Conchita Marcelo RN RN bb Yong Banks MD MD rn [place], Brittany bp1
--- NOTE | 2021-02-17 03:03 | EDPHYS ---
Physician Documentation [facility] Name: Sidra Hodges Age: 46 yrs Sex: Female : 1975 Arrival Date: 02/17/2021 Time: 00:25 Bed 10 Private MD: ED Physician Yong Banks HPI: 02/17 02:59 This 46 yrs old Female presents to ER via Ambulatory with complaints of rn Possible Hemorrhoids. 02:59 The patient presents to the emergency department with pain in the rectal area. Onset: rn The symptoms/episode began/occurred 3 day(s) ago. Context: the patient has no known special context relating to the rectal area complaint(s), has a known history of hemorrhoids. Modifying factors: The symptoms are alleviated by nothing, The symptoms are aggravated by bowel movement, sitting position. Associate signs and symptoms: Pertinent positives: constipation, Pertinent negatives: abdominal pain, fever. The patient has experienced similar episodes in the past. The patient has not recently seen a physician. Patient reports two or 3 days of rectal pain, feels like hemorrhoids are acting up again, small amount of blood when wiping only. No fever. No abdominal pain. No trauma.. Historical: - Allergies: 02:17 CARBAMAZEPINE DERIVATIVES; em 02:17 Depakote; em 02:17 Tegretol; em - PMHx: 02:17 ADD/ADHD; Anxiety; Bipolar disorder; Chronic pain; hemorrhoids; psychiatric; Seizures; em - PSHx: 02:17 R LEG SX; em - Immunization history:: Client reports having NOT received the Covid vaccine. - Social history:: Smoking status: Patient denies any tobacco usage or history of. - Family history:: not pertinent. - Hospitalizations: : No recent hospitalization is reported. ROS: 02:59 Constitutional: Negative for fever, chills, and weight loss, Eyes: Negative for injury, rn pain, redness, and discharge, Neck: Negative for injury, pain, and swelling, Cardiovascular: Negative for chest pain, palpitations, and edema, Respiratory: Negative for shortness of breath, cough, wheezing, and pleuritic chest pain, Abdomen/GI: Negative for abdominal pain, nausea, vomiting, diarrhea, and constipation, Back: Negative for injury and pain, : Negative for injury, bleeding, discharge, and swelling, MS/Extremity: Negative for injury and deformity, Neuro: Negative for headache, weakness, numbness, tingling, and seizure. Exam: 02:59 Constitutional: This is a well developed, well nourished patient who is awake, alert, rn and in no acute distress. Head/Face: Normocephalic, atraumatic. Cardiovascular: Regular rate and rhythm. No pulse deficits. Respiratory: No increased work of breathing, no retractions or nasal flaring. Abdomen/GI: Soft, non-tender, several external hemorrhoids present, neither look thrombosed. No evidence of perirectal abscess or tear. No active bleeding. Skin: Warm, dry MS/ Extremity: Pulses equal, no cyanosis. Neuro: Awake and alert, GCS 15, oriented to person, place, time, and situation. Cranial nerves II-XII grossly intact. Motor strength 5/5 in all extremities. Sensory grossly intact. Cerebellar exam normal. Normal gait. Vital Signs: 02:15 BP 129 / 42; Pulse 103; Resp 18; Temp 98.1; Pulse Ox 100% on R/A; em 03:21 BP 118 / 67; Pulse 89; Resp 16; Pulse Ox 99% on R/A; em MDM: 02:27 Patient medically screened. rn 02:59 Differential diagnosis: hemorrhoids, fissure, abscess. Data reviewed: vital signs, rn nurses notes, old medical records, and as a result, I will discharge patient. Counseling: I had a detailed discussion with the patient and/or guardian regarding: the historical points, exam findings, and any diagnostic results supporting the discharge/admit diagnosis, the need for outpatient follow up, to return to the emergency department if symptoms worsen or persist or if there are any questions or concerns that arise at home. Special discussion: I discussed with the patient/guardian in detail that at this point there is no indication for admission to the hospital. It is understood, however, that if the symptoms persist or worsen the patient needs to return immediately for re-evaluation. ED course: No Anusol here. Placed viscous lidocaine on external hemorrhoids for some relief. Will DC home with Anusol as patient has not tried any Preparation H or anything else yet.. Administered Medications: 03:17 Drug: Viscous Lidocaine Liquid (4 %) 10 ml {Note: to affected area.} Route: Mucous bb Membrane; Disposition Summary: 02/17/21 03:02 Discharge Ordered Location: Home rn Problem: an ongoing problem rn Symptoms: are unchanged rn Condition: Stable rn Diagnosis - Unspecified hemorrhoids rn Followup: rn - With: Private Physician - When: As needed - Reason: Recheck today's complaints, Re-evaluation by your physician Discharge Instructions: - Discharge Summary Sheet rn - High-Fiber Diet rn - Hemorrhoids rn Forms: - Medication Reconciliation Form rn - Thank You Letter rn - Antibiotic channel turner - Prescription Opioid Use rn Prescriptions: - Anusol-HC 2.5 % Topical cream with perineal applicator - apply 1 applicatorful by TOPICAL route 2-4 times daily; 1 tube; Refills: 0, rn Product Selection Permitted - Anusol-HC 25 mg Rectal Suppository - insert 1 suppository by RECTAL route every 12 hours As needed; 20 suppository; rn Refills: 0, Product Selection Permitted Signatures: Florentin Heath RN RN Conchita Tinoco RN RN Yong Lacy MD MD rn
[2021-02-17] MEDS ORDERED: LIDOCAINE VISCOUS 2% SOLN 15 ML UDC ONE ×2 (03:23→03:38)
[2021-02-17 03:37] VITALS: TEMP 98.1
[2021-02-17 03:38] VITALS: BP 118/67; O2SAT 99
== END 2021-02-17 03:29 | disposition home or self-care (01) ==
LOC: ER 00:24
DX: K64.9 Unspecified hemorrhoids (principal); Z88.8 Allergy status to other drugs, medicaments and biological substances
CPT/HCPCS: 99283

== ENCOUNTER 2021-03-05 14:10 | Emergency (ER) | payer SELFPAY ==
--- OUTSIDE RECORDS SUMMARY | 2021-03-05 14:12 | XMS REPORT | Continuity of Care Document ---
:1975 Author Organization [facility] t Address [address] [place] [address] Care Team Providers Name Role Phone Marissa [...] Department ID 2019-12-15 2019-12-15 Emergency Kp [place] [facility] [id number] 17:11:56 18:04:00 Marissa Gonzalez [id number] [place] [id number] [place] [id number] 2019-10-25 2019-10-25 Emergency YUDITH Ballesteros [id number] 18:31:31 19:21:00 Dwaine Gonzalez [id number] [place] [id number] [place] [id number] 2019-08-13 2019-08-13 Emergency [place], [facility] [id number] 13:30:00 14:36:00 Jerry Gonzalez [id number] [place] [id number] [place] [id number] 2019-07-22 2019-07-22 Emergency Unknown, Attending TRAUMA [id number] 13:42:11 19:02:00 Shelbie, Lisa [facility] [id number] [id number] 2019-01-21 2019-01-21 Emergency [facility], [facility] [id number] 18:38:01 19:59:00 Le Gonzalez [id number] [place] [id number] [place] [address] [id number] Results Test Description Test Time Test Comments Results Result Comments Source Valproic Acid Level 2019-01-12 08:03:22 Test Item Value Reference Range Interpretation Comme nts Valproic Acid Level (test code = Valproic Acid Level) 57.6 ug/mL(g) 50.0-100.0 Hemoglobin [id number] 09:36:00 Test Item Value Reference Range Interpretation Comments Hemoglobin A1c (test code 5.0 % 4.8-5.9 No n Diabetic = Hemoglobin A1c) 4.8-5.9%Di abetic <7.0% CT Shoulder w/o Contrast [id number] 16:49:13Patient: BHUMIKA JONES Date/Time01/09/2019 16:14 CDTReason for [...] Adam FSigned (Electronic Signature): 01/09/2019 4:49 pmRPR [id number] 21:33:20 Test Item Value Reference Range Interpretation [...] Expiration Dt) XR Shoulder Complete 2+ Views [id number] 15:41:25Patient: BHUMIKA JONES Date/Time01/07/2019 15:25 CDTReason for [...] CSigned (Electronic Signature): 01/07/2019 3:41 pmThyroid Stimulating [id number] 03:07:04 Test Item Value Reference Range Interpretation Comments TSH (test code = TSH) 9.650 mIU/mL 0.270-4.200 H Lipid [id number] 03:07:03 Test Item Value Reference Range Interpretation Comments Cholesterol Total 199 mg/dL 0-200 RISK OF HE ART (test code = DISEASEPublishe d by Cholesterol Total) [place] [employer] [place] Optimal Borderl ine [...] LDL/HDL Ratio=L DL Calc/HDL Chol HCG Qualitative [id number] 02:33:13 Test Item Value Reference Range Interpretation Comments HCG, Serum Qual (test code = HCG, Negative Serum Qual) Lot # (test code = Lot #) [id number] N Expiration Dt (test code = 2020-04-23 N Expiration Dt) Neg Control (test code = Neg Negative Control) Pos Control (test code = Pos Positive Control) Internal QC (test code = Internal Acceptable QC) Drugs of Abuse Urine [id number] 18:58:11 Test Item Value Reference Range Interpretation [...] (test code = Cannabinoid Screen Ur) Alcohol [id number] 18:47:34 Test Item Value Reference Range Interpretation Comments Ethanol Level (test <0.00 g/dL 0.00-0.01 Intoxica isabel 0.080 g/dL code = Ethanol or more Level) Ethanol Inst (test <0 N code = Ethanol Inst) Comprehensive Metabolic [id number] 18:47:33 Test Item Value Reference Range Interpretation [...] A/G 1.0 ratio N Ratio) Comprehensive Metabolic [id number] 18:47:33 Test Item Value Reference Range Interpretation [...] National Kidney Foundation, http://nkdep.ni h.gov Comprehensive Metabolic [id number] 18:47:33 Test Item Value Reference Range Interpretation [...] have not been validated by [facility] MDRD study and should be interpreted [...] have not been validated by [facility] MDRD study and should be interpreted wit h caution. eGFR R esult Interpretation: eGFR > or = 60 is in the Normal RangeeGF R < 60 may mean kid betzaida diseaseeGFR < 1 5 may mean kidney failure Rang es recommended by the National Kidney Foundation, http://nkdep.ni h.gov Complete Blood Count with [id number] 18:15:23 Test Item Value Reference Range Interpretation [...] code = IPF) 0 % N Automated [id number] 18:15:23 Test Item Value Reference Range Interpretation Comments Neutro Auto (test code = Neutro 42.1 % 36.0-70.0 Auto) Lymph Auto (test code = Lymph Auto) 40.0 % 12.0-44.0 [place] Auto (test code = [place] Auto) 12.2 % 0.0-11.0 H Eos, Auto (test code = Eos, Auto) 4.9 % 0.0-7.0 Basophil Auto (test code = Basophil 0.6 % 0.0-2.0 Auto) Neutro Absolute (test code = Neutro 2.2 x10 1.6-7.4 Absolute) Lymph Absolute (test code = Lymph 2.06 x10 .50-4.60 Absolute) [place] Absolute (test code = [place] .63 x10 .00-1.20 Absolute) Eos Absolute (test code = Eos 0.25 x10 0.00-0.74 Absolute) Baso Absolute (test code = Baso 0.03 x10 0.00-0.21 Absolute) IG [id number] 18:15:23 Test Item Value Reference Range Interpretation Comments IG (test code = IG) 0.2 % 0.0-5.0 IG Abs (test code = IG Abs) 0 x10 N
[2021-03-05] MEDS ORDERED: DIAZEPAM 2 MG TABLET PO ONE (15:00)
--- NOTE | 2021-03-05 15:23 | ER ---
Nurse's Notes [facility] Aditya Name: Sidra Hodges Age: 46 yrs Sex: Female : 1975 Arrival Date: 03/05/2021 Time: 14:26 Bed DX3 Private MD: Diagnosis: Anxiety disorder, unspecified Presentation: 03/05 14:26 Chief complaint: EMS states: Pt called EMS stating "I think I had a seizure." No hb seizure activity noted. AOx3, NAD, VS WNL, BGL 83. Coronavirus screen: At this time, the client does not indicate any symptoms associated with coronavirus-19. Ebola Screen: No symptoms or risks identified at this time. Risk Assessment: Do you want to hurt yourself or someone else? Patient reports no desire to harm self or others. Onset of symptoms is unknown. 14:26 Method Of Arrival: EMS: [facility] hb 14:26 Acuity: CARMITA 3 hb Triage Assessment: 15:40 General: Appears. ss Historical: - Allergies: 14:27 CARBAMAZEPINE DERIVATIVES; hb 14:27 Depakote; hb 14:27 Tegretol; hb - Immunization history:: Adult Immunizations up to date. - Family history:: not pertinent. - Social history:: Smoking status: Patient denies any tobacco usage or history of. - Hospitalizations: : No recent hospitalization is reported. Screenin:30 Abuse screen: Denies threats or abuse. Denies injuries from another. Nutritional ss screening: No deficits noted. Tuberculosis screening: Never had TB. Fall Risk None identified. Assessment: 15:37 Reassessment: Patient appears in no apparent distress at this time. Patient and/or ss family updated on plan of care and expected duration. Pain level reassessed. Patient is alert, oriented x 3, equal unlabored respirations, skin warm/dry/pink. Vital Signs: 14:26 BP 138 / 71; Pulse 66; Resp 16; Temp 98.1; Pulse Ox 100% ; hb ED Course: 14:26 Patient arrived in ED. hb 14:27 Triage completed. hb 14:27 Arm band placed on. hb 14:30 Patient has correct armband on for positive identification. Bed in low position. Call ss light in reach. 14:30 No provider procedures requiring assistance completed. Patient did not have IV access ss during this emergency room visit. 14:40 Banks, Yong, MD is Attending Physician. rn 15:20 Samantha Du, GERONIMO is Primary Nurse. ss Administered Medications: 15:20 Drug: Valium (diazepam) 2 mg Route: PO; ss 15:37 Follow up: Response: No adverse reaction; Marked relief of symptoms ss Outcome: 14:30 Discharged to home ambulatory. ss 14:30 Condition: improved 14:30 Discharge instructions given to patient, Instructed on discharge instructions, follow up and referral plans. Demonstrated understanding of instructions, follow-up care. 15:22 Discharge ordered by . rn 15:41 Patient left the ED. ss Signatures: Yong Banks MD MD rn Smirch, Shelby, RN RN Maeve Hernandez RN RN hb
--- NOTE | 2021-03-05 15:23 | EDPHYS ---
Physician Documentation [facility] Name: Sidra Hodges Age: 46 yrs Sex: Female : 1975 Arrival Date: 03/05/2021 Time: 14:26 Bed DX3 Private MD: ED Physician Yong Banks HPI: 03/05 15:19 This 46 yrs old Female presents to ER via EMS with complaints of Anxiety. rn 15:19 The patient presents to the emergency department with anxiety. Onset: The rn symptoms/episode began/occurred at an unknown time. Associated signs and symptoms: Pertinent positives; anxiety, Pertinent negatives: fever, hallucinations, homicidal ideation, shortness of breath, suicide ideation. Severity of symptoms: At their worst the symptoms were moderate in the emergency department the symptoms have improved. The patient has experienced similar episodes in the past. The patient has not recently seen a physician. Patient reports having several anxiety or panic attacks today. Reports started on multiple psychiatric medication recently. Seems overall better but still having some panic attacks. No specific trigger. Not suicidal.. Historical: - Allergies: 14:27 CARBAMAZEPINE DERIVATIVES; hb 14:27 Depakote; hb 14:27 Tegretol; hb - Immunization history:: Adult Immunizations up to date. - Family history:: not pertinent. - Social history:: Smoking status: Patient denies any tobacco usage or history of. - Hospitalizations: : No recent hospitalization is reported. ROS: 15:19 Constitutional: Negative for fever, chills, and weight loss, Eyes: Negative for injury, rn pain, redness, and discharge, Neck: Negative for injury, pain, and swelling, Cardiovascular: Negative for chest pain, palpitations, and edema, Respiratory: Negative for shortness of breath, cough, wheezing, and pleuritic chest pain, Abdomen/GI: Negative for abdominal pain, nausea, vomiting, diarrhea, and constipation, Back: Negative for injury and pain, MS/Extremity: Negative for injury and deformity, Skin: Negative for injury, rash, and discoloration, Neuro: Negative for headache, weakness, numbness, tingling, and seizure, Psych: Negative for depression, suicide ideation, homicidal ideation, and hallucinations. Exam: 15:19 Constitutional: This is a well developed, well nourished patient who is awake, alert, rn and in no acute distress. Head/Face: Normocephalic, atraumatic. Eyes: Periorbital areas with no swelling, redness, or edema. Cardiovascular: Regular rate and rhythm. No pulse deficits. Respiratory: No increased work of breathing, no retractions or nasal flaring. Abdomen/GI: Soft, non-tender Skin: Warm, dry MS/ Extremity: Pulses equal, no cyanosis. Neuro: Awake and alert, GCS 15 Vital Signs: 14:26 BP 138 / 71; Pulse 66; Resp 16; Temp 98.1; Pulse Ox 100% ; hb MDM: 14:40 Patient medically screened. rn 15:19 Differential diagnosis: depression, Anxiety. Data reviewed: vital signs, nurses notes, rn old medical records, and as a result, I will discharge patient. Counseling: I had a detailed discussion with the patient and/or guardian regarding: the historical points, exam findings, and any diagnostic results supporting the discharge/admit diagnosis, the need for outpatient follow up, to return to the emergency department if symptoms worsen or persist or if there are any questions or concerns that arise at home. Response to treatment: the patient's symptoms have mildly improved after treatment, and as a result, I will discharge patient. Special discussion: I discussed with the patient/guardian in detail that at this point there is no indication for admission to the hospital. It is understood, however, that if the symptoms persist or worsen the patient needs to return immediately for re-evaluation. Administered Medications: 15:20 Drug: Valium (diazepam) 2 mg Route: PO; ss 15:37 Follow up: Response: No adverse reaction; Marked relief of symptoms ss Disposition Summary: 03/05/21 15:22 Discharge Ordered Location: Home rn Problem: an ongoing problem rn Symptoms: have improved rn Condition: Stable rn Diagnosis - Anxiety disorder, unspecified rn Followup: rn - With: Private Physician - When: As needed - Reason: Recheck today's complaints, Re-evaluation by your physician Discharge Instructions: - Discharge Summary Sheet rn - Panic Attack rn - Generalized Anxiety Disorder, Adult rn Forms: - Medication Reconciliation Form rn - Thank You Letter rn - Antibiotic director internal communications - Prescription Opioid Use rn Signatures: Yong Banks MD MD rn Smirch, Shelby, RN RN ss Baxter, Heather, RN RN Corrections: (The following items were deleted from the chart) 15:20 15:19 Constitutional: Negative for fever, chills, and weight loss, Eyes: Negative for rn injury, pain, redness, and discharge, Neck: Negative for injury, pain, and swelling, Cardiovascular: Negative for chest pain, palpitations, and edema, Respiratory: Negative for shortness of breath, cough, wheezing, and pleuritic chest pain, Abdomen/GI: Negative for abdominal pain, nausea, vomiting, diarrhea, and constipation, Back: Negative for injury and pain, MS/Extremity: Negative for injury and deformity, Skin: Negative for injury, rash, and discoloration, Neuro: Negative for headache, weakness, numbness, tingling, and seizure, rn
[2021-03-05 15:51] VITALS: BP 138/71; TEMP 98.1; O2SAT 100
== END 2021-03-05 15:41 | disposition home or self-care (01) ==
LOC: ER 14:10
DX: F41.9 Anxiety disorder, unspecified (principal); Z88.8 Allergy status to other drugs, medicaments and biological substances
CPT/HCPCS: 99283

== ENCOUNTER 2021-09-25 13:55 | Emergency (ER) | payer OTHER, SELFPAY ==
--- OUTSIDE RECORDS SUMMARY | 2021-09-25 14:00 | XMS REPORT | Continuity of Care Document ---
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 height 2019-08-13 19:25:00 149.9 cm [facility] Body weight 2019-08-13 19:25:00 90.719 kg [facility] BMI 2019-08-13 19:25:00 40.40 kg/m2 [facility] Oxygen saturation in 2019-08-13 19:25:00 100 /min [facility] Arterial blood by [place] [email or web address] gracie Pulse oximetry Branch Systolic blood 2019-07-23 00:20:15 120 mm[Hg] [facility] Diastolic blood 2019-07-23 00:20:15 74 mm[Hg] [facility] Heart rate 2019-07-23 00:20:15 82 /min [facility] Respiratory rate 2019-07-23 00:20:15 19 /min [facility] Oxygen saturation in 2019-07-23 00:20:15 100 /min [facility] Arterial blood by [place] [email or web address] [facility] Pulse oximetry Branch Body temperature 2019-07-22 19:41:00 36.33 Oma [facility] Body weight 2019-07-22 19:39:00 90.719 kg [facility] BMI 2019-07-22 19:39:00 39.06 kg/m2 [facility] Systolic blood 2019-07-23 00:20:15 120 mm[Hg] [facility] Diastolic blood 2019-07-23 00:20:15 74 mm[Hg] [facility] Heart rate 2019-07-23 00:20:15 82 /min [facility] Respiratory rate 2019-07-23 00:20:15 19 /min [facility] Oxygen saturation in 2019-07-23 00:20:15 100 /min [facility] Arterial blood by [place] [email or web address] [facility] Pulse oximetry Branch Body temperature 2019-07-22 19:41:00 36.33 Oma [facility] Body weight 2019-07-22 19:39:00 90.719 kg [facility] BMI 2019-07-22 19:39:00 39.06 kg/m2 [facility] Systolic blood 2019-07-14 03:33:00 127 mm[Hg] [facility] Diastolic blood 2019-07-14 03:33:00 88 mm[Hg] [facility] Heart rate 2019-07-14 03:33:00 79 /min [facility] Respiratory rate 2019-07-14 03:33:00 16 /min [facility] Oxygen saturation in 2019-07-14 03:33:00 97 /min [facility] Arterial blood by [place] [email or web address] [facility] Pulse oxim[facility] Body weight 2019-07-14 02:16:00 90.719 kg [facility] BMI 2019-07-14 02:16:00 39.06 kg/m2 [facility] Body temperature 2019-07-14 02:15:00 36.78 Oma [facility] Body weight 2019-07-10 20:39:00 90.719 kg [facility] BMI 2019-07-10 20:39:00 39.06 kg/m2 [facility] ty of [facility] Systolic blood 2019-01-21 23:34:00 133 mm[Hg] [facility] Diastolic blood 2019-01-21 23:34:00 78 mm[Hg] [facility] Heart rate 2019-01-21 23:34:00 66 /min [facility] Body temperature 2019-01-21 23:34:00 36.94 Oma [facility] Respiratory rate 2019-01-21 23:34:00 18 /min [facility] Body height 2019-01-21 23:34:00 147.3 cm [facility] Body weight 2019-01-21 23:34:00 68.04 kg [facility] BMI 2019-01-21 23:34:00 31.35 kg/m2 [facility] Oxygen saturation in 2019-01-21 23:34:00 100 /min [facility] Arterial blood by [facility] Pulse oximetry Branch Systolic blood 2019-01-21 23:34:00 133 mm[Hg] [facility] Diastolic blood 2019-01-21 23:34:00 78 mm[Hg] [facility] Heart rate 2019-01-21 23:34:00 66 /min [facility] Body temperature 2019-01-21 23:34:00 36.94 Oma [facility] Respiratory rate 2019-01-21 23:34:00 18 /min [facility] Body height 2019-01-21 23:34:00 147.3 cm [facility] Body weight 2019-01-21 23:34:00 68.04 kg [facility] BMI 2019-01-21 23:34:00 31.35 kg/m2 [facility] Oxygen saturation in 2019-01-21 23:34:00 100 /min [facility] Arterial blood by [facility] Pulse oximetry Branch Procedures Procedure Date / Time Performing Clinician Source Performed XR FOREARM 2 VW RIGHT 2021-05-05 20:03:34 Gladis Rojas [facility] XR WRIST 3+ VW RIGHT 2021-05-05 20:03:34 Gladis Rojas [facility] NOTICE OF PRIVACY 2021-05-05 19:12:00 Doctor Unassigned, No [facility] [place] [facility] CONSENT/REFUSAL FOR 2021-05-05 19:11:19 Doctor Unassigned, No [facility] [place] [facility] CONSENT/REFUSAL FOR 2019-08-13 19:17:22 Doctor Unassigned, No [facility] [place] [facility] Name [facility] CT HEAD WO CONTRAST 2019-07-22 22:24:37 Eli Samayoa [facility] XR CERVICAL SPINE 2 VW 2019-07-22 21:59:[address] [facility] CBC WITH DIFFERENTIAL 2019-07-22 21:34:00 Eli Samayoa [facility] XR CERVICAL SPINE 2 VW 2019-07-14 02:43:00 Henry Albrecht [facility] XR ELBOW <3 VW LEFT 2019-07-14 02:43:00 Henry Albrecht [facility] XR KNEE <3 VW RIGHT 2019-07-14 02:43:00 Henry Albrecht [facility] XR SHOULDER <2 VW LEFT 2019-07-14 02:43:00 Henry Albrecht [facility] Encounters Start End Encounter Admission Attending Care Care Encounter Source Date/Time Date/Time Type Type Clinicians Facility Department ID 2021-05-05 2021-05-05 Emergency X YUDITH ROJAS ERT [id number] Univers 13:22:00 14:48:00 GLADIS thacker [facility] 2021-05-05 2021-05-05 Emergency YUDITH Rojas [id number] Univers 13:22:00 14:48:00 Gladis PRATHER [id number] i ty of [place] 4.2.7.2.686 [facility] [id number] [address] 2021-05-05 2021-05-05 Orders Doctor KENNY [id number] Univers 00:00:00 00:00:00 Only Unassigned, ROCÍO [id number] ity of [place] [facility] 4.2.7.2.686 [facility] [id number] [address] 2019-12-15 2019-12-15 Emergency Karmen, K [facility] [id number] 17:11:56 18:04:00 Stephanie Prather [id number] [place] 4.2.7.2.686 [place] [phone] [facility] 2019-12-15 2019-12-15 Emergency Karmen [facility] [id number] Univers 17:11:56 18:04:00 Stephanie Prather [id number] i ty of [place] 4.2.7.2.6 [facility] [id number] [address] 2019-12-15 2019-12-15 Emergency X KARMEN, K [facility] ERT [id number] Univers 17:11:56 17:11:56 ity of [facility] 2019-10-25 2019-10-25 Emergency Favian, [facility] [id number] 18:31:31 19:21:00 Dwaine Prather [id number] [place] 4.2.7.2.6 [place] [phone] [facility] 2019-10-25 2019-10-[address] [facility] [id number] Univers 18:31:31 19:21:00 Dwaine Prather [id number] i ty of [place] [address] [place] [id number] 2019-10-25 2019-10-25 Emergency [facility] [id number] Univers 18:31:31 18:31:31 CYNISE ity of [facility] 2019-08-13 2019-08-13 Emergency [facility] [id number] Univers 13:30:00 14:36:00 Floridalma Prather [id number] i ty [place] [id number] [address] 2019-08-13 2019-08-13 Emergency [facility]RT [id number] Univers 13:30:00 14:36:00 FLORIDALMA itcindy [facility] 2019-08-13 2019-08-13 Emergency [facility] [id number] 13:30:00 14:36:00 Floridalma Prather [id number] [place] 4.2.7.2.686 [place] [phone] [facility] 2019-07-22 2019-07-22 Emergency [facility] ERT [id number] Univers 13:42:11 19:02:00 LISA ity [facility] 2019-07-22 2019-07-22 Emergency Unknown, Attending TRAUMA [id number] Univers 13:42:11 19:02:00 Lisa Lopez S CENTER [id number] [place] [id number] [address] 2019-07-22 2019-07-22 Emergency Unknown, Attending TRAUMA 1.2.8 [id number] [id number] 13:42:11 19:02:00 Lisa Lopez S CENTER [id number] 4.2.7.2.686 [id number] [facility] 2019-07-13 2019-07-13 Emergency [facility]RT [id number] Univers 20:17:19 21:48:00 HENRY ity [facility] 2019-07-13 2019-07-13 Emergency Trena, TRAUMA [id number] Univers 20:17:19 21:48:00 Henry CENTER [id number] [place] [id number] [address] 2019-07-10 2019-07-10 Emergency X FITO [facility] ERT [id number] Univers 14:26:03 16:33:00 DEBBIE thacker [facility] 2019-07-10 2019-07-10 [facility] [id number] Univers 14:26:03 16:33:00 Debbie Prather [id number] ity of [place] [address] [place] [id number] 2019-07-04 2019-07-04 Emergency [facility] ERT [id number] Univers 19:09:02 22:51:00 LISA thacker [facility] 2019-06-30 2019-06-30 Emergency X [facility] ERT [id number] Univers 10:33:08 13:10:00 GLADIS thacker [facility] 2019-05-25 2019-05-25 Emergency X [facility] ERT [id number] Univers 11:58:19 15:37:00 GLADIS thacker [facility] 2019-01-21 2019-01-21 Emergency [facility] [id number] Univers 18:38:01 19:59:00 Le Mota Valdez [id number] ity of [place] [address] [place] [id number] 2019-01-21 2019-01-21 Emergency [facility] [id number] 18:38:01 19:59:00 Le Prather [id number] [place] [address] [place] [address] [id number] [id number] Results Test Description Test Time Test Comments Results Result Sour e Comments CT HEAD WO 2019-06-25 Impression: 1. ?No Univer sity of CONTRAST [address] [facility] 22:34:12 process. 2. ?Diffuse Bran ch cerebral volume loss which is slightly atypical and unexpectedgiven the age of the patient. Please correlate with history and physicalexamination.E xam: CT HEAD WO CONTRAST Clinical History: Headache, acute, normal neuro exam Technique:Thin section CT brain with multiplanar reformats Comparison: CT brain dated 05/25/2019 Findings: Brainstem, cerebellum are within normal limits. There is milddiffuse cerebral volume loss with prominentSulci, cisterns and ventricles, excessive for the age of the patient.Motion artifact slightly limits evaluation of the posterior fossa.There is no evidence of intracranial hemorrhage, mass, acute infarction,midline shift or mass effect. Included portions of the orbits are withinnormal limits. The mastoid air cells, paranasal sinuses are within normallimits. [facility], Radiant Results Inft User - 07/22/2019 4:35 PM CSTExam: CT HEAD WO CONTRASTClinical History: Headache, acute, normal neuro exam Technique:Thin section CT brain with multiplanar reformatsComparison: CT brain dated 05/25/2019Findings: Brainstem, cerebellum are within normal limits. There is milddiffuse cerebral volume loss with prominentSulci, cisterns and ventricles, excessive for the age of the patient.Motion artifact slightly limits evaluation of the posterior fossa.There is no evidence of intracranial hemorrhage, mass, acute infarction,midline shift or mass effect. Included portions of the orbits are withinnormal limits. The mastoid air cells, paranasal sinuses are within normallimits.IMPRESSI ONImpression:1. No acute intracranial process.2. Diffuse cerebral volume loss which is slightly atypical and unexpectedgiven the age of the patient. Please correlate with history and physicalexamination. XR CERVICAL 2019-06-25 No acute osseous Univer sity of SPINE 2 VW 9 abnormality. [facility] 22:29:40 Preliminary Report Branch Dictated by Resident: Carl Womack I, Kenny Antonio MD., have reviewed this study and agree with theabove report.EXAM: XR CERVICAL SPINE 2 VW HISTORY: neck pain COMPARISON: 07/13/2019 FINDINGS: The vertebral bodies are normal in height and in normal alignment. Theintervertebral disc spaces are unremarkable. The prevertebral soft tissuesare within normal limits. [facility], Radiant Results Inft User - 07/22/2019 4:30 PM CSTEXAM: XR CERVICAL SPINE 2 VWHISTORY: neck pain COMPARISON: 07/13/2019FINDINGS:The vertebral bodies are normal in height and in normal alignment. Theintervertebral disc spaces are unremarkable. The prevertebral soft tissuesare within normal limits.IMPRESSIONNo acute osseous abnormality.Prelimina ry Report Dictated by Resident: Carl Braden, Kenny Antonio MD., have reviewed this study and agree with theabove report. CBC WITH DIFFERENTIAL 2019-07-22 21:46:00 Test Item Value Reference Range Interpretation Comme nts WBC (test code = 6690-2) See_Comment [A utomated message] The system which ge nerated this result transmit isabel reference range: 4.30 - 1 1.10 10*3/?L. The reference r kobi was not used to interpr et this result as normal/abnor mal. RBC (test code = 789-8) See_Comment L [Au tomated message] The system which ge nerated this result transmit isabel reference range: 3.93 - 5 .25 10*6/?L. The reference r kobi was not used to interpr et this result as normal/abnor mal. HGB (test code = 718-7) 10.7 g/dL 11.6-15 L HCT (test code = 4544-3) 33.2 % 35.7-45.2 L MCV (test code = 787-2) 85.8 fL 80.6-95.5 MCH (test code = 785-6) 27.6 pg 25.9-32.8 MCHC (test code = 786-4) 32.2 g/dL 31.6-35.1 RDW-SD (test code = 02230-7) 45.1 fL 39-49.9 RDW-CV (test code = 788-0) 14.6 % 12-15.5 PLT (test code = 777-3) See_Comment L [Au tomated message] The system which ge nerated this result transmit isabel reference range: 166 - 35 8 10*3/?L. The reference range was not used to interpret th is result as normal/abnormal . MPV (test code = 88800-4) 9.0 fL 9.5-12.9 L NRBC/100 WBC (test code = See_Comment [ Automated message] The [id number]) system which ge nerated this result transmit isabel reference range: 0.0 - 10 .0 /100 WBCs. The reference r kobi was not used to interpr et this result as normal/abnor mal. NRBC x10^3 (test code = <0.01 See_Comment [Au tomated message] The [id number]) system which ge nerated this result transmit isabel reference range: 10*3/?L. The reference range was not u sed to interpret this result as normal/abnormal . GRAN MAT (NEUT) % (test code 51.3 % = 770-8) IMM GRAN % (test code = 0.40 % [id number]) LYMPH % (test code = 736-9) 24.4 % MONO % (test code = 5905-5) 23.1 % EOS % (test code = 713-8) 0.4 % BASO % (test code = 706-2) 0.4 % GRAN MAT x10^3(ANC) (test 2.48 10*3/uL 1.88-7.09 code = [id number]) IMM GRAN x10^3 (test code = <0.03 0-0.06 [id number]) LYMPH x10^3 (test code = 1.18 10*3/uL 1.32-3.29 L 731-0) MONO x10^3 (test code = 1.12 10*3/uL 0.33-0.92 H 742-7) EOS x10^3 (test code = <0.03 0.03-0.39 L 711-2) BASO x10^3 (test code = <0.03 0.01-0.07 704-7) Lab Interpretation (test Abnormal code = 50581-4) [facility] 2 [id number] 03:28:03 No acute osseous abnormality. Preliminary Report Dictated by Resident: Brandon Cervantes ?MD. Nelly, have reviewed this study and agree withthe above report.EXAM: XR CERVICAL SPINE 2 VW HISTORY: neck pain COMPARISON: 07/04/2019 FINDINGS: The vertebral bodies are normal in height and in normal alignment. Theintervertebral disc spaces are preserved. The prevertebral soft tissues are within normal limits. [facility], Radiant Results Inft User - 07/13/2019 9:29 PM CSTEXAM: XR CERVICAL SPINE2 VWHISTORY: neck pain COMPARISON: 07/04/2019FINDINGS:The vertebral bodies are normal in height and in normal alignment. Theintervertebral disc spaces are preserved.The prevertebral soft tissues are within normal limits.IMPRESSIONNo acute osseous abnormality.Preliminary Report Dictated by Resident: Brandon Richter MD., have reviewed this study and agree withthe above report. [facility] [id number] 08:03:22 Test Item Value Reference Range Interpretation Comments Valproic Acid Level (test code 57.6 ug/mL(g) 50.0-100.0 = Valproic Acid Level) Hemoglobin [id number] 09:36:00 Test Item Value Reference Range Interpretation Comments Hemoglobin A1c (test code 5.0 % 4.8-5.9 No n Diabetic = Hemoglobin A1c) 4.8-5.9%Di abetic <7.0% CT Shoulder w/o Contrast [id number] 16:49:13Patient: BHUMIKA JONES Date/Time01/09/2019 16:14 CDTReason for [...] lower lobe.LOCATION: R16 Final Dictated by: MD Zac, Suleman FDictated DT/TM: 01/09/2019 4:43 pmSigned by: MD Zac, Suleman FSigned (Electronic Signature): 01/09/2019 4:49 pmRPR [id number] 21:33:20 Test Item Value Reference Range Interpretation [...] Expiration Dt) XR Shoulder Complete 2+ Views [id number] 15:41:25Patient: BHUMIKA JONES Date/Time01/07/2019 15:25 CDTReason for [...] CSigned (Electronic Signature): 01/07/2019 3:41 pmThyroid Stimulating [id number] 03:07:04 Test Item Value Reference Range Interpretation Comments TSH (test code = TSH) 9.650 mIU/mL 0.270-4.200 H Lipid [id number] 03:07:03 Test Item Value Reference Range Interpretation Comments Cholesterol Total 199 mg/dL 0-200 RISK OF HE ART (test code = DISEASEPublishe d by Cholesterol Total) [place] [employer] [place] Optimal Borderl ine [...] LDL/HDL Ratio=L DL Calc/HDL Chol HCG Qualitative [id number] 02:33:13 Test Item Value Reference Range Interpretation Comments HCG, Serum Qual (test code = HCG, Negative Serum Qual) Lot # (test code = Lot #) [id number] N Expiration Dt (test code = 2020-04-23 N Expiration Dt) Neg Control (test code = Neg Negative Control) Pos Control (test code = Pos Positive Control) Internal QC (test code = Internal Acceptable QC) Drugs of Abuse Urine [id number] 18:58:11 Test Item Value Reference Range Interpretation [...] (test code = Cannabinoid Screen Ur) Alcohol [id number] 18:47:34 Test Item Value Reference Range Interpretation Comments Ethanol Level (test <0.00 g/dL 0.00-0.01 Intoxica isabel 0.080 g/dL code = Ethanol or more Level) Ethanol Inst (test <0 N code = Ethanol Inst) Comprehensive Metabolic [id number] 18:47:33 Test Item Value Reference Range Interpretation [...] A/G 1.0 ratio N Ratio) Comprehensive Metabolic [id number] 18:47:33 Test Item Value Reference Range Interpretation [...] National Kid[employer] Foundation, http://nkdep.ni h.gov Comprehensive Metabolic [id number] 18:47:33 Test Item Value Reference Range Interpretation [...] ag e have not been validated by [facility] MDRD study and should be [...] ag e have not been validated by [facility] MDRD study and should be interpreted wit h caution. eGFR R esult Interpretation: eGFR > or = 60 is in the Normal RangeeGF R < 60 may mean kid betzaida diseaseeGFR < 1 5 may mean kidney failure Rang es recommended by the National Kidney Foundation, http://nkdep.ni h.gov Complete Blood Count with [id number] 18:15:23 Test Item Value Reference Range Interpretation [...] code = IPF) 0 % N Automated [id number] 18:15:23 Test Item Value Reference Range Interpretation Comments Neutro Auto (test code = Neutro 42.1 % 36.0-70.0 Auto) Lymph Auto (test code = Lymph Auto) 40.0 % 12.0-44.0 Plumas Auto (test code = Plumas Auto) 12.2 % 0.0-11.0 H Eos, Auto (test code = Eos, Auto) 4.9 % 0.0-7.0 Basophil Auto (test code = Basophil 0.6 % 0.0-2.0 Auto) Neutro Absolute (test code = Neutro 2.2 x10 1.6-7.4 Absolute) Lymph Absolute (test code = Lymph 2.06 x10 .50-4.60 Absolute) Plumas Absolute (test code = Plumas .63 x10 .00-1.20 Absolute) Eos Absolute (test code = Eos 0.25 x10 0.00-0.74 Absolute) Baso Absolute (test code = Baso 0.03 x10 0.00-0.21 Absolute) IG [id number] 18:15:23 Test Item Value Reference Range Interpretation Comments IG (test code = IG) 0.2 % 0.0-5.0 IG Abs (test code = IG Abs) 0 x10 N
--- NOTE | 2021-09-25 14:46 | RAD REPORT ---
EXAM DESCRIPTION: RAD - C Spine Ap/Lat - 09/25/2021 2:28 pm CLINICAL HISTORY: Neck pain FINDINGS: No fracture or dislocation is seen. Osteoporosis. Mild to moderate spondylosis mainly consisting of anterolateral osteophytes.
--- NOTE | 2021-09-25 14:57 | RAD REPORT ---
EXAM DESCRIPTION: RAD - Knee Right 3 View - 09/25/2021 2:28 pm CLINICAL HISTORY: Right knee pain FINDINGS: No fracture or dislocation is seen. Minimal medial joint space narrowing. Prominent spur extends off the anterior superior aspect of bradford lla
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
== END 2021-09-25 15:12 | disposition home or self-care (01) ==
LOC: ER 13:55
DX: S13.8XXA Sprain of joints and ligaments of other parts of neck, initial encounter (principal); S83.91XA Sprain of unspecified site of right knee, initial encounter; V09.9XXA Pedestrian injured in unspecified transport accident, initial encounter; Z88.5 Allergy status to narcotic agent; Z88.8 Allergy status to other drugs, medicaments and biological substances
CPT/HCPCS: 72040; 99283

== ENCOUNTER 2022-05-29 16:58 | Emergency (ER) | payer SELFPAY ==
--- OUTSIDE RECORDS SUMMARY | 2022-05-29 17:03 | XMS REPORT | Continuity of Care Document ---
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 03:33:00 97 /min [facility] Arterial blood by [facility] Pulse oximetry Branch Body weight 2019-07-14 02:16:00 90.719 kg [facility] BMI 2019-07-14 02:16:00 39.06 kg/m2 [facility] Body temperature 2019-07-14 02:15:00 36.78 [place] [facility] Body weight 2019-07-10 20:39:00 90.719 kg [facility] BMI 2019-07-10 20:39:00 39.06 kg/m2 [facility] Systolic blood 2019-01-21 23:34:00 133 mm[Hg] [facility] Diastolic blood 2019-01-21 23:34:00 78 mm[Hg] [facility] Heart rate 2019-01-21 23:34:00 66 /min [facility] Body temperature 2019-01-21 23:34:00 36.94 [place] [facility] Respiratory rate 2019-01-21 23:34:00 18 /min [facility] Body height 2019-01-21 23:34:00 147.3 cm [facility] Body weight 2019-01-21 23:34:00 68.04 kg [facility] BMI 2019-01-21 23:34:00 31.35 kg/m2 [facility] Oxygen saturation in 2019-01-21 23:34:00 100 /min [facility] Arterial blood by [place] Pulse oximetry Branch Systolic blood 2019-01-21 23:34:00 133 mm[Hg] [facility] Diastolic blood 2019-01-21 23:34:00 78 mm[Hg] [facility] Heart rate 2019-01-21 23:34:00 66 /min [facility] Body temperature 2019-01-21 23:34:00 36.94 [place] [facility] Respiratory rate 2019-01-21 23:34:00 18 /min [facility] Body height 2019-01-21 23:34:00 147.3 cm [facility] Body weight 2019-01-21 23:34:00 68.04 kg [facility] BMI 2019-01-21 23:34:00 31.35 kg/m2 [facility] Oxygen saturation in 2019-01-21 23:34:00 100 /min [facility] Arterial blood by [place] Pulse oximetry Branch Procedures Procedure Date / Time Performing Clinician Source Performed CT CERVICAL SPINE WO 2021-10-02 21:53:00 Javed Lester [facility] CONTRAST Medical Branch CT LUMBAR SPINE WO 2021-10-02 21:53:00 Javed Lester [facility] CONTRAST Medical Branch CT THORACIC SPINE WO 2021-10-02 21:53:00 Javed Lester [facility] CONTRAST [facility] Branch XR FOREARM 2 VW RIGHT 2021-05-05 20:03:[facility]+ [facility]W RIGHT 2021-05-05 20:03:34 Gladis Rojas [facility] NOTICE OF PRIVACY 2021-05-05 19:12:00 Doctor Unassigned, No [facility] [place] [facility] Name Medical [facility] CONSENT/REFUSAL FOR 2021-05-05 19:11:19 Doctor Unassigned, No [facility] [place] [facility] [place] CONSENT/REFUSAL FOR 2019-08-13 19:17:22 Doctor Unassigned, No [facility] [place] [facility] Name [facility] [place] CT HEAD WO CONTRAST 2019-07-22 22:24:37 Ofe Samayoa [facility] XR CERVICAL SPINE 2 VW 2019-07-22 21:59:[address] [facility] CBC WITH DIFFERENTIAL 2019-07-22 21:34:[address] [facility] XR CERVICAL SPINE 2 VW 2019-07-14 02:43:00 Henry Albrecht [facility] XR ELBOW <3 VW LEFT 2019-07-14 02:43:00 Henry Albrecht [facility] XR KNEE <3 VW RIGHT 2019-07-14 02:43:00 Henry Albrecht [facility] XR SHOULDER <2 VW LEFT 2019-07-14 02:43:00 Henry Albrecht [facility] Encounters Start End Encounter Admission Attending Care Care Encounter Source Date/Time Date/Time Type Type Clinicians Facility Department ID 2021-10-02 2021-10-02 Emergency X TREVON MEKIKA ERT [id number] Univers 15:56:00 19:00:00 JAVED [facility] 2021-10-02 2021-10-02 Emergency Lester, [facility] [id number] Univers 15:56:00 19:00:00 Javed PRATHER [id number] i ty [facility] 4.2.7.2.686 [facility] [id number] [address] 2021-05-05 2021-05-05 Emergency X ROJAS, [facility] ERT [id number] Univers 13:22:00 14:48:00 GLADIS thacker of [facility] 2021-05-05 2021-05-05 Emergency [facility] [id number] Univers 13:22:00 14:48:00 Gladis PRATHER [id number] i ty [facility] 4.2.7.2.686 [facility] [id number] [address] 2021-05-05 2021-05-05 Orders Doctor EKNNY [id number] Univers 00:00:00 00:00:00 Only Unassigned, ROCÍO 350.1.13.10 ity of [place] [facility] 4.2.7.2.686 Dinesh [id number] [place] [address] Branch 2019-12-15 2019-12-15 Emergency Talat [facility] [id number] Univers 17:11:56 18:04:00 Marissa Prather [id number] i ty of [place] 4.2.7.2.686 [facility] [id number] [address] 2019-12-15 2019-12-15 Emergency Kp Peraza [facility] 1.2.840.114 [id number] 17:11:56 18:04:00 Marissa Prather [id number] [place] 4.2.7.2.686 [place] [id number] [facility] 2019-12-15 2019-12-15 Emergency X Kp PERAZA [facility] ERT [id number] Univers 17:11:56 17:11:56 ity of [facility] 2019-10-25 2019-10-25 Emergency [facility] [id number] Univers 18:31:31 19:21:00 Cynnithin [place] 350.1.13.10 i ty of [place] 4.2.[address] [place] [id number] 2019-10-25 2019-10-25 Emergency [facility] [id number] 18:31:31 19:21:00 Cynnithin [place] 350.1.13.10 [place] [address] [place] [address] [id number] [facility] 2019-10-25 2019-10-25 Emergency X [facility] ERT [id number] Univers 18:31:31 18:31:31 CYNISE ity [facility] 2019-08-13 2019-08-13 Emergency [facility] [id number] Univers 13:30:00 14:36:00 Floridalmamoses Prather 350.1.13.10 i ty of [place] 4.2.7.2.[address] [place] [id number] 2019-08-13 2019-08-13 Emergency X [facility] ERT [id number] Univers 13:30:00 14:36:00 FLORIDALMA ity [facility] 2019-08-13 2019-08-13 Emergency [facility] [id number] 13:30:00 14:36:00 Floridalma Prather 350.1.13.10 [place] [address] [place] [address] [id number] [facility] 2019-07-22 2019-07-22 Emergency X [facility] ERT [id number] Univers 13:42:11 19:02:00 LISA ity of [facility] 2019-07-22 2019-07-22 Emergency Unknown, Attending TRAUMA 1.2.8 40.114 [id number] Univers 13:42:11 19:02:00 Lisa Lopez [facility] 350.1.13.10 ity of 4.2.7.2.686 [facility] [id number] [address] 2019-07-22 2019-07-22 Emergency Unknown, Attending TRAUMA 1.2.8 40.114 [id number] 13:42:11 19:02:00 Lisa Lopez LOUDON 350.1.13.10 4.2.7.2.686 [id number] 2019-07-13 2019-07-13 Emergency X TRENA [facility] ERT [id number] Univers 20:17:19 21:48:00 HENRY thacker [facility] 2019-07-13 2019-07-13 Emergency Trena, TRAUMA [id number] Univers 20:17:19 21:48:00 [facility] [id number] it y of 4.2.7.2.686 [facility] [id number] [address] 2019-07-10 2019-07-10 Emergency [facility] ERT [id number] Univers 14:26:03 16:33:00 DEBBIE thacker [facility] 2019-07-10 2019-07-10 Emergency [facility] 1.2.840.114 [id number] Univers 14:26:03 16:33:00 Debbie Prather 350.1.13.10 ity of [place] 4.2.7.2.686 [facility] [id number] [address] 2019-07-04 2019-07-04 Emergency X [facility] ERT [id number] Univers 19:09:02 22:51:00 LISA thacker [facility] 2019-06-30 2019-06-30 Emergency X [facility] ERT [id number] Univers 10:33:08 13:10:00 GLADIS thacker [facility] 2019-05-25 2019-05-25 Emergency X [facility] ERT [id number] Univers 11:58:19 15:37:00 GLADIS thacker [facility] 2019-01-21 2019-01-21 [facility] [id number] Univers 18:38:01 19:59:00 Le Prather 350.1.13.10 ity of [place] 4.2.7.2.686 [facility] [id number] [address] 2019-01-21 2019-01-21 Emergency [facility] [id number] 18:38:01 19:59:00 Le Prather 350.1.13.10 [place] 4.2.7.2.686 [place] [id number] [id number] Results Test Description Test Time Test Comments Results Result Sourc e Comments CT HEAD WO 2019-06-25 Impression: 1. ?No Univer [facility]ity of CONTRAST 9 acute intracranial [facility] 22:34:12 process. 2. ?Diffuse Bran ch cerebral [...] air cells, paranasal sinuses are within normallimits. Rust, Radiant Results Inft User - 07/22/2019 4:35 [...] of SPINE 2 VW 9 abnormality. [facility] 22:29:40 Preliminary Report Branch Dictated by Resident: [...] L [Au tomated message] The system which [employer] nerated this result transmit isabel reference range: [...] 32.2 g/dL 31.6-35.1 RDW-SD (test code = 53135-6) 45.1 fL 39-49.9 RDW-CV (test code = 788-0) 14.6 % 12-15.5 PLT (test code = 777-3) See_Comment L [Au tomated message] The system which ge nerated this result transmit isabel reference range: 166 - 35 8 10*3/?L. The reference range was not used to interpret th is result as normal/abnormal . MPV (test code = 60940-5) 9.0 fL 9.5-12.9 L NRBC/100 WBC (test code = See_Comment [ Automated message] The [id number]) system which ge nerated this result transmit isabel reference range: 0.0 - 10 .0 /100 WBCs. The reference r kobi was not used to interpr et this result as normal/abnor mal. NRBC x10^3 (test code = <0.01 See_Comment [Au tomated message] The [id number]) system which ge nerated this result transmit isabel reference range: 10*3/?L. The reference range was not u sed to interpret this result as normal/abnormal . GRAN MAT (NEUT) % (test code 51.3 % = 770-8) IMM GRAN % (test code = 0.40 % [id number]) LYMPH % (test code = 736-9) 24.4 % MONO % (test code = 5905-5) 23.1 % EOS % (test code = 713-8) 0.4 % BASO % (test code = 706-2) 0.4 % GRAN MAT x10^3(ANC) (test 2.48 10*3/uL 1.88-7.09 code = [id number]) IMM GRAN x10^3 (test code = <0.03 0-0.06 [id number]) LYMPH x10^3 (test code = 1.18 10*3/uL 1.32-3.29 L 731-0) MONO x10^3 (test code = 1.12 10*3/uL 0.33-0.92 H 742-7) EOS x10^3 (test code = <0.03 0.03-0.39 L 711-2) BASO x10^3 (test code = <0.03 0.01-0.07 704-7) Lab Interpretation (test Abnormal code = 36218-9) [facility] 2 [id number] 03:28:03 No acute osseous abnormality. Preliminary Report Dictated by Resident: Brandon Cervantes MD., have reviewed this study and agree withthe above report.EXAM: XR CERVICAL SPINE 2 VW HISTORY: neck pain COMPARISON: 07/04/2019 FINDINGS: The vertebral bodies are normal in height and in normal alignment. Theintervertebral disc spaces are preserved. The prevertebral soft tissues are within normal limits. Rust, Radiant Results Inft User - 07/13/2019 9:29 PM CSTEXAM: XR CERVICAL SPINE 2VWHISTORY: neck pain COMPARISON: 07/04/2019FINDINGS:The vertebral bodies are normal in height and in normal alignment. Theintervertebral disc spaces are preserved.The prevertebral soft tissues are within normal limits.IMPRESSIONNo acute osseous abnormality.Preliminary Report Dictated by Resident: Brandon Richter MD., have reviewed this study and agree withthe above report. [facility] [id number] 08:03:22 Test Item Value Reference Range Interpretation Comments Valproic Acid Level (test code 57.6 ug/mL(g) 50.0-100.0 = Valproic Acid Level) Hemoglobin [id number] 09:36:00 Test Item Value Reference Range Interpretation Comments Hemoglobin A1c (test code 5.0 % 4.8-5.9 No n Diabetic = Hemoglobin A1c) 4.8-5.9%Di abetic <7.0% CT Shoulder w/o Contrast [id number] 16:49:13Patient: BHUMIKA JONES Date/Time01/09/2019 16:14 CDTReason for ExamInjuryReportCT Shoulder w/o Contrast LeftCLINICAL INFORMATION: InjuryCOMPARISON: Left shoulder series dated January 07, 2019TECHNIQUE: Helical CT imaging of the left shoulder was performed without intravenous or intra-articular contrast. Coronal and sagittal reformats were provided. One or more of the following dose reduction techniques were used: Automated exposure control, adjustment of the mA and/or kV according to patient size, and/or utilization of iterative reconstruction technique.FINDINGS:No acute fracture or malalignment is identified. The glenohumeral, acromioclavicular, and coracoclavicular joint spaces remain well aligned. Calcifications are seen in the supraspinatus tendon. No bony erosions are identified.The left ribs are intact. Patchy opacities are incidentally noted in the medial right lungbase.IMPRESSION:1. No acute fracture or malalignment.2. Calcifications are seen in the supraspinatustendon. Correlate for possible calcific tendinopathy.3. Mild airspace disease in the right lower lobe.LOCATION: R16 Final Dictated by: MD Lester Adam FDictated DT/TM: 01/09/2019 4:43 pmSigned by: MD Lester Adam FSigned (Electronic Signature): 01/09/2019 4:49 pmRPR [id number] 21:33:20 Test Item Value Reference Range Interpretation [...] Expiration Dt) XR Shoulder Complete 2+ Views [id number] 15:41:25Patient: BHUMIKA JONES Date/Time01/07/2019 15:25 CDTReason for Examleft shoulder pain;Pain (please specify)ReportDictation location R 16Left shoulder 3 viewsHISTORY: PainCOMMENT:Frontal radiographs of patient's left shoulder were obtained. The humerus was in internal and external rotation.The examination demonstrates no radiographic evidence for acute or destructive bony change. The glenohumeral joint space is unremarkable. The AC joint is slightly narrowed. There are multiple radiopacities adjacent to the greater tuberosity suggestive of rotator cuff tendinopathy.IMPRESSION:1. No acute findings of the left shoulder.2. Findings suggestive of rotator cuff tendinopathy. Final Dictated by: MD Bobby Phebe CDictated DT/TM: 01/07/2019 3:39 pmSigned by: MD Bobby Phebe CSigned (Electronic Signature): 01/07/2019 3:41 pmThyroid Stimulating [id number] 03:07:04 Test Item Value Reference Range Interpretation Comments TSH (test code = TSH) 9.650 mIU/mL 0.270-4.200 H Lipid [id number] 03:07:03 Test Item Value Reference Range Interpretation Comments Cholesterol Total 199 mg/dL 0-200 RISK OF HE ART (test code = DISEASEPublishe d by Cholesterol Total) [place] [employer] [place] Optimal Borderl ine Increased RiskC HOL <200 200-239 >240TRI G <150 150-199 >200HDL Male >60 <40HDL Fema le >60 <50LDL <100 130 -159 >160LDL Near op timal is 100-129 Triglycerides (test 86 mg/dL 9-200 [...] LDL/HDL Ratio=L DL Calc/HDL Chol HCG Qualitative [id number] 02:33:13 Test Item Value Reference Range Interpretation Comments HCG, Serum Qual (test code = HCG, Negative Serum Qual) Lot # (test code = Lot #) [id number] Expiration Dt (test code = 2020-04-23 N Expiration Dt) Neg Control (test code = Neg Negative Control) Pos Control (test code = Pos Positive Control) Internal QC (test code = Internal Acceptable QC) Drugs of Abuse Urine [id number] 18:58:11 Test Item Value Reference Range Interpretation [...] (test code = Cannabinoid Screen Ur) Alcohol [id number] 18:47:34 Test Item Value Reference Range Interpretation Comments Ethanol Level (test <0.00 g/dL 0.00-0.01 Intoxica isabel 0.080 g/dL code = Ethanol or more Level) Ethanol Inst (test <0 N code = Ethanol Inst) Comprehensive Metabolic [id number] 18:47:33 Test Item Value Reference Range Interpretation [...] A/G 1.0 ratio N Ratio) Comprehensive Metabolic [id number] 18:47:33 Test Item Value Reference Range Interpretation [...] National Kid[employer] Foundation, http://nkdep.ni h.gov Comprehensive Metabolic [id number] 18:47:33 Test Item Value Reference Range Interpretation [...] ag e have not been validated by [facility] MDRD study and should be [...] ag e have not been validated by [facility] MDRD study and should be interpreted wit h caution. eGFR R esult Interpretation: eGFR > or = 60 is in the Normal RangeeGF R < 60 may mean kid betzaida diseaseeGFR < 1 5 may mean kidney failure Rang es recommended by the National Kidney Foundation, http://nkdep.ni h.gov Complete Blood Count with [id number] 18:15:23 Test Item Value Reference Range Interpretation [...] code = IPF) 0 % N Automated [id number] 18:15:23 Test Item Value Reference Range Interpretation Comments Neutro Auto (test code = Neutro 42.1 % 36.0-70.0 Auto) Lymph Auto (test code = Lymph Auto) 40.0 % 12.0-44.0 Hocking Auto (test code = Hocking Auto) 12.2 % 0.0-11.0 H Eos, Auto (test code = Eos, Auto) 4.9 % 0.0-7.0 Basophil Auto (test code = Basophil 0.6 % 0.0-2.0 Auto) Neutro Absolute (test code = Neutro 2.2 x10 1.6-7.4 Absolute) Lymph Absolute (test code = Lymph 2.06 x10 .50-4.60 Absolute) Hocking Absolute (test code = Hocking .63 x10 .00-1.20 Absolute) Eos Absolute (test code = Eos 0.25 x10 0.00-0.74 Absolute) Baso Absolute (test code = Baso 0.03 x10 0.00-0.21 Absolute) IG [id number] 18:15:23 Test Item Value Reference Range Interpretation Comments IG (test code = IG) 0.2 % 0.0-5.0 IG Abs (test code = IG Abs) 0 x10 N
--- NOTE | 2022-05-29 17:12 | EDPHYS ---
Physician Documentation [facility] Name: Sidra Hodges Age: 47 yrs Sex: Female : 1975 Arrival Date: 05/29/2022 Time: 16:59 Bed 11 Private MD: ED Physician Boris Olivera HPI: 05/29 17:08 This 47 yrs old Female presents to ER via Unassigned with complaints of pt was snw at a store and there was a police presence, pt states she had a seizure. 17:08 Pt lowered herself to the ground with some right upper extremity hand shaking. Onset: snw The symptoms/episode began/occurred just prior to arrival. Severity of symptoms: At their worst the symptoms were very mild. The patient has experienced similar episodes in the past. It is unknown whether or not the patient has recently seen a physician. Historical: - Allergies: 17:08 CARBAMAZEPINE DERIVATIVES; ss 17:08 Depakote; ss 17:08 Tegretol; ss - PMHx: 17:08 ADD/ADHD; Anxiety; Bipolar disorder; Chronic pain; hemorrhoids; psychiatric; Seizures; ss - PSHx: 17:08 R LEG SX; ss - Immunization history:: Client reports receiving the 2nd dose of the Covid vaccine. - Social history:: Smoking status: Patient denies any tobacco usage or history of. ROS: 17:06 Constitutional: Negative for fever, chills, and weight loss, Eyes: Negative for injury, snw pain, redness, and discharge, ENT: Negative for injury, pain, and discharge, Neck: Negative for injury, pain, and swelling, Cardiovascular: Negative for chest pain, palpitations, and edema, Respiratory: Negative for shortness of breath, cough, wheezing, and pleuritic chest pain, Abdomen/GI: Negative for abdominal pain, nausea, vomiting, diarrhea, and constipation, Back: Negative for injury and pain, : Negative for injury, bleeding, discharge, and swelling, MS/Extremity: Negative for injury and deformity, Skin: Negative for injury, rash, and discoloration, Psych: Negative for depression, anxiety, suicide ideation, homicidal ideation, and hallucinations. 17:06 Neuro: Positive for right hand shakiness. Exam: 17:05 Constitutional: This is a well developed, well nourished patient who is awake, alert, snw and in no acute distress. Head/Face: Normocephalic, atraumatic. Eyes: Pupils equal round and reactive to light, extra-ocular motions intact. Lids and lashes normal. Conjunctiva and sclera are non-icteric and not injected. Cornea within normal limits. Periorbital areas with no swelling, redness, or edema. ENT: Nares patent. No nasal discharge, no septal abnormalities noted. Tympanic membranes are normal and external auditory canals are clear. Oropharynx with no redness, swelling, or masses, exudates, or evidence of obstruction, uvula midline. Mucous membranes moist. Neck: Trachea midline, no thyromegaly or masses palpated, and no cervical lymphadenopathy. Supple, full range of motion without nuchal rigidity, or vertebral point tenderness. No Meningismus. Chest/axilla: Normal chest wall appearance and motion. Nontender with no deformity. No lesions are appreciated. Cardiovascular: Regular rate and rhythm with a normal S1 and S2. No gallops, murmurs, or rubs. Normal PMI, no JVD. No pulse deficits. Respiratory: Lungs have equal breath sounds bilaterally, clear to auscultation and percussion. No rales, rhonchi or wheezes noted. No increased work of breathing, no retractions or nasal flaring. Abdomen/GI: Soft, non-tender, with normal bowel sounds. No distension or tympany. No guarding or rebound. No evidence of tenderness throughout. Back: No spinal tenderness. No costovertebral tenderness. Full range of motion. Skin: Warm, dry with normal turgor. Normal color with no rashes, no lesions, and no evidence of cellulitis. MS/ Extremity: Pulses equal, no cyanosis. Neurovascular intact. Full, normal range of motion. Neuro: Awake and alert, GCS 15, oriented to person, place, time, and situation. Cranial nerves II-XII grossly intact. Motor strength 5/5 in all extremities. Sensory grossly intact. Cerebellar exam normal. Normal gait. Vital Signs: 17:05 BP 153 / 101; Pulse 77; Resp 16; Temp 98.4(O); Pulse Ox 100% on R/A; Pain 0/10; ss MDM: 17:03 Patient medically screened. snw 17:10 Data reviewed: vital signs, nurses notes. Data interpreted: Pulse oximetry: on room air snw is 100 %. Interpretation: normal. Counseling: I had a detailed discussion with the patient and/or guardian regarding: the historical points, exam findings, and any diagnostic results supporting the discharge/admit diagnosis, the presence of at least one elevated blood pressure reading (>120/80) during this emergency department visit, the need for outpatient follow up, to return to the emergency department if symptoms worsen or persist or if there are any questions or concerns that arise at home. Special discussion: I have referred the patient to see his PCP for further evaluation of high blood pressure. Based on the history and exam findings, there is no indication for further emergent testing or inpatient evaluation. I discussed with the patient/guardian the need to see the primary care provider for further evaluation of the symptoms. Administered Medications: No medications were administered Disposition: 18:46 Co-signature as Attending Physician, Boris Olivera MD I agree with the assessment and kdr plan of care. Disposition Summary: 05/29/22 17:12 Discharge Ordered Location: Home snw Condition: Stable snw Diagnosis - Tremor snw Followup: snw - With: Emergency Department - When: As needed - Reason: Worsening of condition Followup: snw - With: Private Physician - When: 1 - 2 days - Reason: Recheck today's complaints, Continuance of care, Re-evaluation by your physician Discharge Instructions: - Discharge Summary Sheet snw - Tremor snw Forms: - Medication Reconciliation Form snw - Thank You Letter snw - Antibiotic Education snw - Prescription Opioid Use snw Signatures: Boris Olivera MD MD kdr Waters, Shelly, FNP-C [employer]-Csnw Samantha Du, RN RN Marina Perez RN RN em6
--- NOTE | 2022-05-29 17:12 | ER ---
Nurse's Notes [facility] Name: Sidra Hodges Age: 47 yrs Sex: Female : 1975 Arrival Date: 05/29/2022 Time: 16:59 Bed 11 Private MD: Diagnosis: Tremor Presentation: 05/29 17:05 Chief complaint: EMS states: "The police went into a store and came across her and in ss the police presents she let herself to the ground and started shaking." Pt has no complaints at this time. Coronavirus screen: Client denies travel out of the [place] in the last 14 days. Ebola Screen: Patient denies exposure to infectious person. Patient denies travel to an Ebola-affected area in the 21 days before illness onset. Initial Sepsis Screen: Does the patient meet any 2 criteria? No. Patient's initial sepsis screen is negative. Does the patient have a suspected source of infection? No. Patient's initial sepsis screen is negative. Risk Assessment: Do you want to hurt yourself or someone else? Patient reports no desire to harm self or others. Onset of symptoms was May 29, 2022. 17:05 Method Of Arrival: EMS: [facility] ss 17:05 Acuity: CARMITA 3 ss Historical: - Allergies: 17:08 CARBAMAZEPINE DERIVATIVES; ss 17:08 Depakote; ss 17:08 Tegretol; ss - PMHx: 17:08 ADD/ADHD; Anxiety; Bipolar disorder; Chronic pain; hemorrhoids; psychiatric; Seizures; ss - PSHx: 17:08 R LEG SX; ss - Immunization history:: Client reports receiving the 2nd dose of the Covid vaccine. - Social history:: Smoking status: Patient denies any tobacco usage or history of. Screenin:24 Abuse screen: Denies threats or abuse. Nutritional screening: No deficits noted. em6 Tuberculosis screening: No symptoms or risk factors identified. Fall Risk Total Davidson Fall Scale indicates No Risk (0-24 pts). Assessment: 17:20 General: Appears in no apparent distress. Behavior is cooperative. Pain: Denies pain. em6 Neuro: Level of Consciousness is awake, alert, obeys commands, Oriented to person, place, time, situation. Cardiovascular: Patient's skin is warm and dry. Respiratory: Airway is patent Respiratory effort is even, unlabored, Respiratory pattern is regular, symmetrical. GI: Abdomen is non-distended, Bowel sounds present X 4 quads. Abd is soft and non tender X 4 quads. : No signs and/or symptoms were reported regarding the genitourinary system. EENT: No signs and/or symptoms were reported regarding the EENT system. Derm: No signs and/or symptoms reported regarding the dermatologic system. Musculoskeletal: Circulation, motion, and sensation intact. Range of motion: intact in all extremities. 17:22 Reassessment: patient states that she need to go. gave her discharge papers. patient em6 states family will pick her up from the lobby. walked patient out the lobby and inform her she can sit down in the lobby and wait for family. Vital Signs: 17:05 BP 153 / 101; Pulse 77; Resp 16; Temp 98.4(O); Pulse Ox 100% on R/A; Pain 0/10; ss ED Course: 16:59 Patient arrived in ED. ss 17:02 [facility] Zepeda [facility]-C [facility]. snw 17:03 Boris Olivera MD is Attending Physician. snw 17:03 Sabina Hernandez, RN is Primary Nurse. db 17:08 Triage completed. ss 17:08 Arm band placed on right wrist. ss 17:10 Patient has correct armband on for positive identification. Bed in low position. Call em6 light in reach. Side rails up X 1. Pulse ox on. NIBP on. Warm blanket given. 17:26 No provider procedures requiring assistance completed. Patient did not have IV access em6 during this emergency room visit. Administered Medications: No medications were administered Medication: 17:24 VIS not applicable for this client. em6 Outcome: 17:12 Discharge ordered by . snw 17:26 Discharged to home ambulatory. em6 17:26 Condition: stable 17:26 Discharge instructions given to patient, Instructed on discharge instructions, follow up and referral plans. Demonstrated understanding of instructions, follow-up care. 17:26 Patient left the ED. em6 Signatures: Verito Zepeda FNP-C FNP-Csnw Smirch, Shelby, RN RN Marina Perez RN RN em6 Sabina Hernandez, GERONIMO RN db
[2022-05-29 21:55] VITALS: BP 153/101; TEMP 98.4; O2SAT 100
== END 2022-05-29 17:26 | disposition home or self-care (01) ==
LOC: ER 16:58
DX: R25.1 Tremor, unspecified (principal); Z88.8 Allergy status to other drugs, medicaments and biological substances
CPT/HCPCS: 99283

== ENCOUNTER 2022-06-01 16:00 | Emergency (ER) | payer SELFPAY ==
--- OUTSIDE RECORDS SUMMARY | 2022-06-01 16:04 | XMS REPORT | Continuity of Care Document ---
:1975 Author Organization [facility] t Address [address] [place] [address] Care Team Providers Name Role [facility] Primary Care Physician Unavailable JAVED LESTER Attending Clinician Unavailable Javed Chavez Attending Clinician GLADIS ROJAS Attending Clinician Unavailable Gladis Rojas DO Attending Clinician Doctor Unassigned, [place] Attending Clinician Unavailable Kp Dorado Attending Clinician [...] of s s 00:00: g of this note Medical might be Branch different from the original. ICD10 Diagnosis Term Rate Setter Utility Asthma Asthma Disease Active Overview: Univer s [address] ity of 00:00: g of this note Medical might be Branch different from the original. ICD10 Diagnosis Term Rate Setter Utility Mental Mental Disease Active Univers disorder disorder 208 ity of 00:00: [place] 00 Medical Branch Encounter Encounter Disease Active Overview: Univers for for 2 Formatt[place] ity of routine routine 00:00: g of this [place] gynecologi gynecologi 00 note Me dical gracie gracie might be Branch examinatio examinatio different n n from the original. ICD10 Diagnosis Term Rate Setter Utility Morbid Morbid Disease Active Univers obesity obesity 2-08 ity of 00:00: [place] 00 Medical Branch Depression Depression Disease Active U nivers 2-08 ity of 00:00: [address] Branch Generalize Generalize Disease Active U nivers d anxiety d anxiety -08 ity of disorder disorder 00:00: [address] Branch Seizure Seizure Disease Active Univers disorder disorder 2-08 ity of 00:00: [address] Branch Allergies, Adverse Reactions, Alerts Allergy Allergy Status Severity Reaction(s) Onset Inactive Treating Comm ents Source Name Type Date Date Clinician NO KNOWN Drug Active [facility] ALLERGIE Class ity of S [facility] Social History Social Habit Start Date Stop Date Quantity Comments Source Exposure to Not sure [facility] SARS-CoV-2 [facility] (event) Branch Alcohol intake 2021-10-02 2021-10-02 Current [facility] 00:00:00 00:00:00 non-drinker of [facility] alcohol [place] (finding) Tobacco use and 2014-07-05 2014-07-05 Never used Universit y of exposure 00:00:00 00:00:00 [facility] Sex Ass[birth year] At [birth year] Univers y of 00:00:00 00:00:00 [facility] Smoking Status Start Date Stop Date Source Never smoker [facility] Medications Ordered Filled Start Stop Current Ordering [...] Indication s: acute pain naproxen 2020-06 Yes [id number] 550mg Take 1 U nivers sodium 1-12 [...] Indication s: acute pain naproxen 2020-06 Yes [id number] 550mg Take 1 U nivers sodium 1-12 tablet by ity of (ANAPROX 00:00: mouth 2 [place] DS) 550 mg 00 (two) Medical tablet times Branch daily with meals. amoxicillin 2020-0 Yes [id number] 1{tbl} Take 1 Univers -clavulanat 2-20 tablet by ity of e 875-125 00:00: mouth [place] mg per 00 every 12 Medical tablet (twelve) Branch hours. amoxicillin 2020-0 Yes [id number] 1{tbl} Take 1 Univers -clavulanat 2-20 tablet by ity of e 875-125 00:00: mouth [place] mg per 00 every 12 Medical tablet (twelve) Branch hours. amoxicillin 2020-0 Yes [id number] 1{tbl} Take 1 Univers -clavulanat 2-20 tablet by ity of e 875-125 00:00: mouth [place] mg per 00 every 12 Medical tablet (twelve) Branch hours. amoxicillin 2020-0 Yes [id number] 1{tbl} Take 1 Univers -clavulanat 2-20 tablet by ity of e 875-125 00:00: mouth [place] mg per 00 every 12 Medical tablet (twelve) Branch hours. amoxicillin 2020-0 Yes [id number] 1{tbl} Take 1 Univers -clavulanat 2-20 tablet by ity of e 875-125 00:00: mouth [place] mg per 00 every 12 Medical tablet (twelve) Branch hours. amoxicillin 2020-0 Yes [id number] 1{tbl} Take 1 Univers -clavulanat 2-20 tablet by ity of e 875-125 00:00: mouth [place] mg per 00 every 12 Medical tablet (twelve) Branch hours. clindamycin 2020-0 2020- No [id number] 300mg Take 1 Univers 300 mg 2-20 - capsule by ity of capsule 00:00: 05:59 mouth 4 [place] 00 :00 (four) Medical times Branch daily for 10 days. methocarbam 2020-0 2020- No 1000mg 1,000 mg, Univers ol 07-23 Oral, ity of (ROBAXIN) 00:30: 23:39 ONCE, 1 [place] tablet [place] :[place] dose, Wed Medical 1,000 mg 07/22/19 at [facility] h 1830, Routine ketorolac 2019-0 2020- No 30mg 30 mg, Unive rs (TORADOL) 07-23 Intramuscu ity of injection 00:00: 23:00 lar, ONCE, [place] 30 mg 00 :00 1 dose, Medical Wed Branch 07/22/19 at 1800, Routine
wireless team member approving Restricted medication : LISA LOPEZ ketorolac 2020-0 2020- No 30mg 30 mg, Unive rs (TORADOL) 07-14 Intramuscu ity of injection 03:30: 02:57 lar, ONCE, [place] 30 mg 00 :00 1 dose, Medical Mon Branch 07/13/19 at 2130, AYEHSA
Fa culty member approving Restricted medication : HENRY ALBRECHT ketorolac 2020-0 2020- No [id number] 10mg Take 1 Univers 10 mg 07-13 tablet by ity of tablet 00:00: 05:59 mouth [place] 00 :00 every 8 Medical (eight) Branch hours for 5 days. traMADol 50 2020-0 Yes [id number] 50mg Take 1 Univers mg tablet 1-11 tablet by ity o f 00:00: mouth [place] 00 every 6 Medical (six) Branch hours as needed for Pain (scale 7-10). cephALEXin 2020-0 Yes [id number] 500mg Take 1 Univers (KEFLEX) 1-11 [id number] capsule by ity of 500 mg 00:00: mouth 4 [place] capsule 00 (four) Medical times Branch daily. traMADol 50 2020-0 Yes [id number] 50mg Take 1 Univers mg tablet 1-11 tablet by ity o f 00:00: mouth [place] 00 every 6 Medical (six) Branch hours as needed for Pain (scale 7-10). cephALEXin 2020-0 Yes [id number] 500mg Take 1 Univers (KEFLEX) 1-11 [id number] capsule by ity of 500 mg 00:00: mouth 4 [place] capsule 00 (four) Medical times Branch daily. traMADol 50 2020-0 Yes [id number] 50mg Take 1 Univers mg tablet 1-11 tablet by ity o f 00:00: mouth [place] 00 every 6 Medical (six) Branch hours as needed for Pain (scale 7-10). cephALEXin 2020-0 Yes [id number] 500mg Take 1 Univers (KEFLEX) 1-11 [id number] capsule by ity of 500 mg 00:00: mouth 4 [place] capsule 00 (four) Medical times Branch daily. traMADol 50 2020-0 Yes [id number] 50mg Take 1 Univers mg tablet 1-11 tablet by ity o f 00:00: mouth [place] 00 every 6 Medical (six) Branch hours as needed for Pain (scale 7-10). cephALEXin 2020-0 Yes [id number] 500mg Take 1 Univers (KEFLEX) 1-11 [id number] capsule by ity of 500 mg 00:00: mouth 4 [place] capsule 00 (four) Medical times Branch daily. cephALEXin 2020-0 Yes [id number] 500mg Take 1 Univers (KEFLEX) 1-11 [id number] capsule by ity of 500 mg 00:00: mouth 4 [place] capsule 00 (four) Medical times Branch daily. cephALEXin 2020-0 Yes [id number] 500mg Take 1 Univers (KEFLEX) 1-11 [id number] capsule by ity of 500 mg 00:00: mouth 4 [place] capsule 00 (four) Medical times Branch daily. traMADol 50 2020-0 Yes [id number] 50mg Take 1 Univers mg tablet 1-11 tablet by ity o f 00:00: mouth [place] 00 every 6 Medical (six) Branch hours as needed for Pain (scale 7-10). cephALEXin 2020-0 Yes [id number] 500mg Take 1 Univers (KEFLEX) 1-11 [id number] capsule by ity of 500 mg 00:00: mouth 4 [place] capsule 00 (four) Medical times Branch daily. traMADol 50 2020-0 Yes [id number] 50mg Take 1 Univers mg tablet 1-11 tablet by ity o f 00:00: mouth [place] 00 every 6 Medical (six) Branch hours as needed for Pain (scale 7-10). cephALEXin 2020-0 Yes [id number] 500mg Take 1 Univers (KEFLEX) 1-11 [id number] capsule by ity of 500 mg 00:00: mouth 4 [place] capsule 00 (four) Medical times Branch daily. traMADol 50 2020-0 Yes [id number] 50mg Take 1 Univers mg tablet 1-11 tablet by ity o f 00:00: mouth [place] 00 every 6 Medical (six) Branch hours as needed for Pain (scale 7-10). cephALEXin 2019-0 Yes [id number] 500mg Take 1 Univers (KEFLEX) 1- [id number] capsule by ity of 500 mg 00:00: mouth 4 [place] capsule 00 (four) Medical times Branch daily. traMADol 50 2020- No [id number] 50mg Take 1 Univers mg tablet -11 11-12 tablet by ity of 00:00: 00:00 mouth [place] 00 :00 every 6 Medical (six) Branch hours as needed for Pain (scale 7-10). bacitracin 2019-2019- No [id number] Apply to Univers 500 07-04 affected ity of unit/gram 00:00: 05:59 area(s) 2 [place] ointment 00 :00 (two) Medical times Branch daily for 10 days. bacitracin 2019- No [id number] Apply to Univers 500 07-04 affected ity of unit/gram 00:00: 05:59 area[place] 2 [place] ointment 00 :00 (two) Medical times Branch daily for 10 days. traMADol 50 2020-0 Yes [id number] 50mg Take 1 Univers mg tablet 1-07 tablet by ity o f 00:00: mouth [place] 00 every 6 Medical (six) Branch hours as needed for Pain (scale 7-10). traMADol 50 2020-0 Yes [id number] 50mg Take 1 Univers mg tablet 1-07 tablet by ity o f 00:00: mouth [place] 00 every 6 Medical (six) Branch hours as needed for Pain (scale 7-10). traMADol 50 2020-0 Yes [id number] 50mg Take 1 Univers mg tablet 1-07 tablet by ity o f 00:00: mouth [place] 00 every 6 Medical (six) Branch hours as needed for Pain (scale 7-10). traMADol 50 2020-0 Yes [id number] 50mg Take 1 Univers mg tablet 1-07 tablet by ity o f 00:00: mouth [place] 00 every 6 Medical (six) Branch hours as needed for Pain (scale 7-10). traMADol 50 2020-0 Yes [id number] 50mg Take 1 Univers mg tablet 1-07 tablet by ity o f 00:00: mouth [place] 00 every 6 Medical (six) Branch hours as needed for Pain (scale 7-10). traMADol 50 2020-0 Yes [id number] 50mg Take 1 Univers mg tablet 1-07 tablet by ity o f 00:00: mouth [place] 00 every 6 Medical (six) Branch hours as needed for Pain (scale 7-10). traMADol 50 2020-0 Yes [id number] 50mg Take 1 Univers mg tablet 1-07 tablet by ity o f 00:00: mouth [place] 00 every 6 Medical (six) Branch hours as needed for Pain (scale 7-10). traMADol 50 2019-0 2020- No [id number] 50mg Take 1 Univers mg tablet 1-07 11-12 tablet by ity of 00:00: 00:00 mouth [place] 00 :00 every 6 Medical (six) Branch hours as needed for Pain (scale 7-10). ARIPiprazol 0 Yes 2mg Take 2 mg U nivers e (ABILIFY) 5-01 by mouth ity of 2 mg tablet 00:58: daily. [address] ARIPiprazol 0 Yes 2mg Take 2 mg U nivers e (ABILIFY) 5-01 by mouth ity of 2 mg tablet 00:58: daily. [address] ARIPiprazol 0 Yes 2mg Take 2 mg U nivers e (ABILIFY) 5-01 by mouth ity of 2 mg tablet 00:58: daily. [address] ARIPiprazol 0 Yes 2mg Take 2 mg U nivers e (ABILIFY) 5-01 by mouth ity of 2 mg tablet 00:58: daily. [address] ARIPiprazol 0 Yes 2mg Take 2 mg U nivers e (ABILIFY) 5-01 by mouth ity of 2 mg tablet 00:58: daily. [address] ARIPiprazol 0 Yes 2mg Take 2 [...] 2017-0 Yes Take by Uni vers ne 501 mouth. ity of (TRILEPTAL) 00:58: [place] 300 [...] 300 mg 10 Medical tablet Branch divalproex Yes 500mg Take 500 Un [...] ity of 2 mg tablet 19:58: daily. [address] ARIPiprazol 0 Yes 2mg Take 2 mg U nivers e (ABILIFY) 4-30 by mouth ity of 2 mg tablet 19:58: daily. [address] ARIPiprazol 0 Yes 2mg Take 2 mg U nivers e (ABILIFY) 4-30 by mouth ity of 2 mg tablet 19:58: daily. [address] Branch divalproex Yes 500mg Take 500 [...] 600mg Take 1 Univ ers 600 mg 816 11-12 tablet by ity of tablet 00:00: [...] Medical suppository (two) Branch times daily. hydrocortis 0 Yes 25mg Insert 1 Un chris one [...] 20:55:00 111 mm[Hg] Univer sity of pressure [facility] Diastolic blood 2021-10-02 20:55:00 70 mm[Hg] Unive rsity of pressure [facility] Heart rate 2021-10-02 20:55:00 79 /min Universi ty of [facility] Body temperature 2021-10-02 20:55:00 36.61 Oma Univ ersity of [facility] Respiratory rate 2021-10-02 20:55:00 18 /min Univ ersity of [facility] Body height 2021-10-02 20:55:00 149.9 cm Universi ty of [facility] Body weight 2021-10-02 20:55:00 79.379 kg Universi ty of [facility] BMI 2021-10-02 20:55:00 35.35 kg/m2 Universi ty of [place] [facility] Branch Oxygen saturation in 2021-10-02 20:55:00 100 /min University of Arterial blood by [place] [employer] gracie Pulse oximetry Branch Systolic blood 2021-05-05 19:20:00 102 mm[Hg] Univer sity of [facility] Branch Diastolic blood 2021-05-05 19:20:00 48 mm[Hg] Unive rsity of pressure [facility] Heart rate 2021-05-05 19:20:00 68 /min Universi ty of [place] [facility] Body temperature 2021-05-05 19:20:00 36.94 Oma Univ ersity of [facility] Branch Respiratory rate 2021-05-05 19:20:00 18 /min Univ ersity of [facility] Branch Body weight 2021-05-05 19:20:00 79.379 kg Universi ty of [place] Medical [place] BMI 2021-05-05 19:20:00 35.35 kg/m2 Universi ty of [place] [facility] Oxygen saturation in 2021-05-05 19:20:00 99 /min University of Arterial blood by [employer] gracie Pulse oximetry Branch Systolic blood 2019-12-15 22:12:00 138 mm[Hg] Univer sity of pressure [place] [facility] Diastolic blood 2019-12-15 22:12:00 100 mm[Hg] Unive rsity of pressure [place] [facility] Heart rate 2019-12-15 22:12:00 77 /min Universi ty of [place] [facility] Body temperature 2019-12-15 22:12:00 37.06 Oma Univ ersity of [place] [facility] Respiratory rate 2019-12-15 22:12:00 20 /min Univ ersity of [place] [facility] Body weight 2019-12-15 22:12:00 79.379 kg Universi ty of [place] [facility] BMI 2019-12-15 22:12:00 35.35 kg/m2 Universi ty of [place] [facility] Oxygen saturation in 2019-12-15 22:12:00 100 /min University of Arterial blood by [place] Qiandao gracie Pulse oximetry Branch Systolic blood 2019-12-15 22:12:00 138 mm[Hg] Univer sity of pressure [place] [facility] Diastolic blood 2019-12-15 22:12:00 100 mm[Hg] Unive rsity of pressure [place] [facility] Heart rate 2019-12-15 22:12:00 77 /min Universi ty of [place] [facility] Body temperature 2019-12-15 22:12:00 37.06 Oma Univ ersity of [place] [facility] Respiratory rate 2019-12-15 22:12:00 20 /min Univ ersity of [place] [facility] Body weight 2019-12-15 22:12:00 79.379 kg Universi ty of [place] [facility] BMI 2019-12-15 22:12:00 35.35 kg/m2 Universi ty of [place] [facility] Oxygen saturation in 2019-12-15 22:12:00 100 /min University of Arterial blood by [place] Qiandao gracie Pulse oximetry Branch Respiratory rate 2019-10-25 23:43:00 18 /min Univ ersity of [place] [facility] Body weight 2019-10-25 23:43:00 83.915 kg Universi ty of [place] [facility] BMI 2019-10-25 23:43:00 37.37 kg/m2 Universi ty of [place] [facility] Respiratory rate 2019-10-25 23:43:00 18 /min Univ ersity of [place] [facility] Body weight 2019-10-25 23:43:00 83.915 kg Universi ty of [place] [facility] BMI 2019-10-25 23:43:00 37.37 kg/m2 Universi ty of [place] [facility] Systolic blood 2019-08-13 19:25:00 123 mm[Hg] Univer sity of pressure [place] [facility] Diastolic blood 2019-08-13 19:25:00 88 mm[Hg] Unive rsity of pressure [place] [facility] Heart rate 2019-08-13 19:25:00 78 /min Universi ty of [place] [facility] Body temperature 2019-08-13 19:25:00 36.56 Oma Univ ersity of [place] [facility] Respiratory rate 2019-08-13 19:25:00 18 /min Univ ersity of [place] [facility] Body height 2019-08-13 19:25:00 149.9 cm Universi ty of [place] [facility] Body weight 2019-08-13 19:25:00 90.719 kg Universi ty of [place] [facility] BMI 2019-08-13 19:25:00 40.40 kg/m2 Universi ty of [place] [facility] Oxygen saturation in 2019-08-13 19:25:00 100 /min University of Arterial blood by [place] Qiandao gracie Pulse oximetry Branch Systolic blood 2019-08-13 19:25:00 123 mm[Hg] Univer sity of pressure [place] [facility] Diastolic blood 2019-08-13 19:25:00 88 mm[Hg] Unive rsity of pressure [place] [facility] Heart rate 2019-08-13 19:25:00 78 /min Universi ty of [place] [facility] Body temperature 2019-08-13 19:25:00 36.56 Oma Univ ersity of [place] [facility] Respiratory rate 2019-08-13 19:25:00 18 /min Univ ersity of [place] [facility] Body height 2019-08-13 19:25:00 149.9 cm Universi ty of [place] [facility] Body weight 2019-08-13 19:25:00 90.719 kg Universi ty of [place] [facility] BMI 2019-08-13 19:25:00 40.40 kg/m2 Universi ty of [place] [facility] Oxygen saturation in 2019-08-13 19:25:00 100 /min University of Arterial blood by [employer] gracie Pulse oximetry Branch Systolic blood 2019-07-23 00:20:15 120 mm[Hg] Univer sity of pressure [place] [facility] Diastolic blood 2019-07-23 00:20:15 74 mm[Hg] Unive rsity of pressure [place] [facility] Heart rate 2019-07-23 00:20:15 82 /min Universi ty of [place] [facility] Respiratory rate 2019-07-23 00:20:15 19 /min Univ ersity of [place] [facility] Oxygen saturation in 2019-07-23 00:20:15 100 /min University of Arterial blood by [place] Qi[employer] gracie Pulse oximetry Branch Body temperature 2019-07-22 19:41:00 36.33 Oma Univ ersity of [place] [facility] Body weight 2019-07-22 19:39:00 90.719 kg Universi ty of [place] [facility] BMI 2019-07-22 19:39:00 39.06 kg/m2 Universi ty of [place] [facility] Systolic blood 2019-07-23 00:20:15 120 mm[Hg] Univer sity of pressure [place] [facility] Diastolic blood 2019-07-23 00:20:15 74 mm[Hg] Unive rsity of pressure [place] [facility] Heart rate 2019-07-23 00:20:15 82 /min Universi ty of [place] [facility] Respiratory rate 2019-07-23 00:20:15 19 /min Univ ersity of [place] [facility] Oxygen saturation in 2019-07-23 00:20:15 100 /min University of Arterial blood by [place] [facility] gracie Pulse oximetry Branch Body temperature 2019-07-22 19:41:00 36.33 Oma Univ ersity of [place] [facility] Body weight 2019-07-22 19:39:00 90.719 kg Universi ty of [place] [facility] BMI 2019-07-22 19:39:00 39.06 kg/m2 Universi ty of [place] [facility] Systolic blood 2019-07-14 03:33:00 127 mm[Hg] Univer sity of pressure [place] [facility] Diastolic blood 2019-07-14 03:33:00 88 mm[Hg] Unive rsity of pressure [place] [facility] Heart rate 2019-07-14 03:33:00 79 /min Universi ty of [place] [facility] Respiratory rate 2019-07-14 03:33:00 16 /min Univ ersity of [place] [facility] Oxygen saturation in 2019-07-14 03:33:00 97 /min University of Arterial blood by [place] Qi[employer] gracie Pulse oximetry Branch Body weight 2019-07-14 02:16:00 90.719 kg Universi ty of [place] [facility] BMI 2019-07-14 02:16:00 39.06 kg/m2 Universi ty of [place] [facility] Body temperature 2019-07-14 02:15:00 36.78 Oma Univ ersity of [place] [facility] Body weight 2019-07-10 20:39:00 90.719 kg Universi ty of [place] [facility] BMI 2019-07-10 20:39:00 39.06 kg/m2 Universi ty of [place] [facility] Systolic blood 2019-01-21 23:34:00 133 mm[Hg] Univer sity of pressure [place] [facility] Diastolic blood 2019-01-21 23:34:00 78 mm[Hg] Unive rsity of pressure [place] [facility] Heart rate 2019-01-21 23:34:00 66 /min Universi ty of [place] [facility] Body temperature 2019-01-21 23:34:00 36.94 Oma Univ ersity of [place] [facility] Respiratory rate 2019-01-21 23:34:00 18 /min Univ ersity of [place] [facility] Body height 2019-01-21 23:34:00 147.3 cm Universi ty of [place] [facility] Body weight 2019-01-21 23:34:00 68.04 kg Universi ty of [place] [facility] BMI 2019-01-21 23:34:00 31.35 kg/m2 Universi ty of [place] [facility] Oxygen saturation in 2019-01-21 23:34:00 100 /min University of Arterial blood by [place] Qianda[facility] Pulse oximetry Branch Systolic blood 2019-01-21 23:34:00 133 mm[Hg] Univer sity of pressure [place] [facility] Diastolic blood 2019-01-21 23:34:00 78 mm[Hg] Unive rsity of pressure [place] [facility] Heart rate 2019-01-21 23:34:00 66 /min Universi ty of [place] [facility] Body temperature 2019-01-21 23:34:00 36.94 Oma Univ ersity of [place] [facility] Respiratory rate 2019-01-21 23:34:00 18 /min Univ ersity of [place] [facility] Body height 2019-01-21 23:34:00 147.3 cm Universi ty of [place] [facility] Body weight 2019-01-21 23:34:00 68.04 kg Universi ty of [place] [facility] BMI 2019-01-21 23:34:00 31.35 kg/m2 Universi ty of [place] [facility] Oxygen saturation in 2019-01-21 23:34:00 100 /min University of Arterial blood by [facility] Pulse oximetry Branch Procedures Procedure Date / Time Performing Clinician Source Performed CT CERVICAL SPINE WO 2021-10-02 21:53:00 [facility] CONTRAST Medical Branch CT LUMBAR SPINE WO 2021-10-02 21:53:00 Javed Lester [facility] CONTRAST Medical Branch CT THORACIC SPINE WO 2021-10-02 21:53:00 [facility] CONTRAST Medical Branch XR FOREARM 2 VW RIGHT 2021-05-05 20:03:34 Gladis Rojas [facility] XR WRIST 3+ VW RIGHT 2021-05-05 20:03:34 Gladis Rojas [facility] NOTICE OF PRIVACY 2021-05-05 19:12:00 Doctor Unassigned, No Univ ersity [facility] PRACTICES Name Medical Branch CONSENT/REFUSAL FOR 2021-05-05 19:11:19 Doctor Unassigned, No Un iversity of [place] DIAGNOSIS AND TREATMENT Name Medical Branch CONSENT/REFUSAL FOR 2019-08-13 19:17:22 Doctor Unassigned, No [facility] [place] [facility] Name Medical Branch CT HEAD WO CONTRAST 2019-07-22 22:24:37 Ofe Samayoa [facility] XR CERVICAL SPINE 2 VW 2019-07-22 21:59:59 [facility] CBC WITH DIFFERENTIAL 2019-07-22 21:34:00 [facility]fe [facility] XR CERVICAL SPINE 2 VW 2019-07-14 02:43:00 Henry Albrecht [facility] XR ELBOW <3 VW LEFT 2019-07-14 02:43:00 Henry Albrecht [facility] XR KNEE <3 VW RIGHT 2019-07-14 02:43:00 Henry Albrecht [facility] XR SHOULDER <2 VW LEFT 2019-07-14 02:43:00 Henry Albrecht [facility] Encounters Start End Encounter Admission Attending Care Care Encounter Source Date/Time Date/Time Type Type Clinicians Facility Department ID 2021-10-02 2021-10-02 Emergency X TREVON PAKIKA ERT [id number] Univers 15:56:00 19:00:00 JAVED thacker of [facility] 2021-10-02 2021-10-02 Emergency Lester, [facility] [id number] Univers 15:56:00 19:00:00 Javed PRATHER [id number] i ty [facility] [id number] [facility] [id number] [address] 2021-05-05 2021-05-05 Emergency X ROJAS, [facility] ERT [id number] Univers 13:22:00 14:48:00 GLADIS thacker [facility] 2021-05-05 2021-05-05 [facility] [id number] Univers 13:22:00 14:48:00 Gladis PRATHER [id number] i ty of [place] 4.2.7.2.686 [facility] [id number] [address] 2021-05-05 2021-05-05 Orders Doctor KENNY [id number] Univers 00:00:00 00:00:00 Only Unassigned, ROCÍO [id number] ity of [place] [facility] 4.2.7.2.686 Dinesh [id number] [place] [address] Branch 2019-12-15 2019-12-15 Emergency Karmen, [facility] [id number] Univers 17:11:56 18:04:00 Marissa Prather [id number] i ty of [place] 4.2.7.2.686 [facility] [id number] [place] [address] Branch 2019-12-15 2019-12-15 Emergency Karmen, K [facility] [id number] 17:11:56 18:04:00 Marissa Prather 350.1.13.10 [place] 4.2.7.2.686 [place] [id number] [facility] 2019-12-15 2019-12-15 Emergency X KARMEN, K [facility] ERT [id number] Univers 17:11:56 17:11:56 ity of [facility] 2019-10-25 2019-10-[address] [facility] [id number] Univers 18:31:31 19:21:00 Cynnithin Prather 350.1.13.10 i ty of [place] 4.2.7.2.686 [facility] [id number] [address] 2019-10-25 2019-10-25 [facility] [id number] 18:31:31 19:21:00 Cynnithin Prather 350.1.13.10 [place] 4.2.7.2.686 [place] [id number] [facility] 2019-10-25 2019-10-25 Emergency [facility] ERT [id number] Univers 18:31:31 18:31:31 CYNISE ity [facility] 2019-08-13 2019-08-13 Emergency [facility] [id number] Univers 13:30:00 14:36:00 Floridalma Prather 350.1.13.10 i ty of [place] 4.2.7.2.686 [facility] [id number] [address] 2019-08-13 2019-08-13 [facility] [id number] Univers 13:30:00 14:36:00 FLORIDALMA ity [facility] 2019-08-13 2019-08-13 Emergency [facility] [id number] 13:30:00 14:36:00 Floridalma Prather 350.1.13.10 [place] [address] [place] [address] [id number] [facility] 2019-07-22 2019-07-22 Emergency [facility] [id number] Univers 13:42:11 19:02:00 LISA ity [facility] 2019-07-22 2019-07-22 Emergency Unknown, Attending TRAUMA 1.2.8 [id number] [id number] Univers 13:42:11 19:02:00 Lisa Lopez [facility] 350.1.13.10 ity of 4.2.7.2.686 [facility] [id number] [address] 2019-07-22 2019-07-22 Emergency Unknown, Attending TRAUMA 1.2.8 40.114 [id number] 13:42:11 19:02:00 Lisa Lopez [place] 350.1.13.10 4.2.7.2.686 [id number] 2019-07-13 2019-07-13 Emergency X TRENA [facility] ERT [id number] Univers 20:17:19 21:48:00 HENRY thacker [facility] 2019-07-13 2019-07-13 Emergency Trena, TRAUMA [id number] Univers 20:17:19 21:48:00 [facility] 350.1.13.10 [id number] [address] 2019-07-10 2019-07-10 Emergency [facility] ERT [id number] Univers 14:26:03 16:33:00 DEBBIE thacker [facility] 2019-07-10 2019-07-10 Emergency [facility] [id number] Univers 14:26:03 16:33:00 Debbie Prather 350.1.13.10 ity of [place] 4.2.7.2.686 [facility] [id number] [address] 2019-07-04 2019-07-04 Emergency [facility] ERT [id number] Univers 19:09:02 22:51:00 LISA thacker [facility] 2019-06-30 2019-06-30 Emergency X [facility] ERT [id number] Univers 10:33:08 13:10:00 GLADIS thacker [facility] 2019-05-25 2019-05-25 Emergency [facility] ERT [id number] Univers 11:58:19 15:37:00 GLADIS thacker [facility] 2019-01-21 2019-01-21 Emergency [facility] [id number] Univers 18:38:01 19:59:00 Le Prather 350.1.13.10 ity of [place] 4.2.7.2.686 [facility] [id number] [address] 2019-01-21 2019-01-21 Emergency Drever, [facility] [id number] 18:38:01 19:59:00 Le Prather 350.1.13.10 [place] 4.2.7.2.686 [place] [id number] [id number] Results Test Description Test Time Test Comments Results Result Sourc e Comments CT HEAD WO 2019-06-25 Impression: 1. ?No Univer sity of CONTRAST 9 acute intracranial [facility] 22:34:12 process. 2. ?Diffuse Bran ch cerebral [...] air cells, paranasal sinuses are within normallimits. [facility], Radiant Results Inft User - 07/22/2019 4:35 [...] sity of SPINE 2 VW 9 abnormality. [facility] l 22:29:40 Preliminary Report Branch Dictated by [...] 32.2 g/dL 31.6-35.1 RDW-SD (test code = 96853-2) 45.1 fL 39-49.9 RDW-CV (test code = 788-0) 14.6 % 12-15.5 PLT (test code = 777-3) See_Comment L [Au tomated message] The system which ge nerated this result transmit isabel reference range: 166 - 35 8 10*3/?L. The reference range was not used to interpret th is result as normal/abnormal . MPV (test code = 74873-4) 9.0 fL 9.5-12.9 L NRBC/100 WBC (test code = See_Comment [ Automated message] The [id number]) system which ge nerated this result transmit isabel reference range: 0.0 - 10 .0 /100 WBCs. The reference r kobi was not used to interpr et this result as normal/abnor mal. NRBC x10^3 (test code = <0.01 See_Comment [Au tomated message] The [id number]) system which ge nerated this result transmit isabel reference range: 10*3/?L. The reference range was not u sed to interpret this result as normal/abnormal . GRAN MAT (NEUT) % (test code 51.3 % = 770-8) IMM GRAN % (test code = 0.40 % [id number]) LYMPH % (test code = 736-9) 24.4 % MONO % (test code = 5905-5) 23.1 % EOS % (test code = 713-8) 0.4 % BASO % (test code = 706-2) 0.4 % GRAN MAT x10^3(ANC) (test 2.48 10*3/uL 1.88-7.09 code = 3836038439) IMM GRAN x10^3 (test code = <0.03 0-0.06 [id number]) LYMPH x10^3 (test code = 1.18 10*3/uL 1.32-3.29 L 731-0) MONO x10^3 (test code = 1.12 10*3/uL 0.33-0.92 H 742-7) EOS x10^3 (test code = <0.03 0.03-0.39 L 711-2) BASO x10^3 (test code = <0.03 0.01-0.07 704-7) Lab Interpretation (test Abnormal code = 90243-0) [facility] [id number] 03:28:03 No acute osseous abnormality. Preliminary Report Dictated by Resident: Brandon Cervantes MD., have reviewed this study and agree withthe above report.EXAM: XR CERVICAL SPINE 2 VW HISTORY: neck pain COMPARISON: 07/04/2019 FINDINGS: The vertebral bodies are normal in height and in normal alignment. Theintervertebral disc spaces are preserved. The prevertebral soft tissues are within normal limits. [place], Radiant Results Inft User - 07/13/2019 9:29 PM CSTEXAM: XR CERVICAL SPINE 2VWHISTORY: neck pain COMPARISON: 07/04/2019FINDINGS:The vertebral bodies are normal in height and in normal alignment. Theintervertebral disc spaces are preserved.The prevertebral soft tissues are within normal limits.IMPRESSIONNo acute osseous abnormality.Preliminary Report Dictated by Resident: Brandon Richter MD., have reviewed this study and agree withthe above report. [facility] [id number] 08:03:22 Test Item Value Reference Range Interpretation Comments Valproic Acid Level (test code 57.6 ug/mL(g) 50.0-100.0 = Valproic Acid Level) Hemoglobin [id number] 09:36:00 Test Item Value Reference Range Interpretation Comments Hemoglobin A1c (test code 5.0 % 4.8-5.9 No n Diabetic = Hemoglobin A1c) 4.8-5.9%Di abetic <7.0% CT Shoulder w/o Contrast [id number] 16:49:13Patient: BHUMIKA JONES Date/Time01/09/2019 16:14 CDTReason for [...] Adam FSigned (Electronic Signature): 01/09/2019 4:49 pmRPR [id number] 21:33:20 Test Item Value Reference Range Interpretation [...] Expiration Dt) XR Shoulder Complete 2+ Views [id number] 15:41:25Patient: BHUMIKA JONES Date/Time01/07/2019 15:25 CDTReason for [...] CSigned (Electronic Signature): 01/07/2019 3:41 pmThyroid Stimulating [id number] 03:07:04 Test Item Value Reference Range Interpretation Comments TSH (test code = TSH) 9.650 mIU/mL 0.270-4.200 H Lipid [id number] 03:07:03 Test Item Value Reference Range Interpretation Comments Cholesterol Total 199 mg/dL 0-200 RISK OF HE ART (test code = DISEASEPublishe d by Cholesterol Total) [place] [employer] [place] Optimal Borderl ine [...] LDL/HDL Ratio=L DL Calc/HDL Chol HCG Qualitative [id number] 02:33:13 Test Item Value Reference Range Interpretation Comments HCG, Serum Qual (test code = HCG, Negative Serum Qual) Lot # (test code = Lot #) [id number] N Expiration Dt (test code = 2020-04-23 N Expiration Dt) Neg Control (test code = Neg Negative Control) Pos Control (test code = Pos Positive Control) Internal QC (test code = Internal Acceptable QC) Drugs of Abuse Urine [id number] 18:58:11 Test Item Value Reference Range Interpretation [...] (test code = Cannabinoid Screen Ur) Alcohol [id number] 18:47:34 Test Item Value Reference Range Interpretation Comments Ethanol Level (test <0.00 g/dL 0.00-0.01 Intoxica isabel 0.080 g/dL code = Ethanol or more Level) Ethanol Inst (test <0 N code = Ethanol Inst) Comprehensive Metabolic [id number] 18:47:33 Test Item Value Reference Range Interpretation [...] A/G 1.0 ratio N Ratio) Comprehensive Metabolic [id number] 18:47:33 Test Item Value Reference Range Interpretation [...] National Kidney Foundation, http://nkdep.ni h.gov Comprehensive Metabolic [id number] 18:47:33 Test Item Value Reference Range Interpretation [...] ag e have not been validated by [facility] MDRD study and should be interpreted [...] ag e have not been validated by [facility] MDRD study and should be interpreted wit h caution. eGFR R esult Interpretation: eGFR > or = 60 is in the Normal RangeeGF R < 60 may mean kid betzaida diseaseeGFR < 1 5 may mean kidney failure Rang es recommended by the National Kidney Foundation, http://nkdep.ni h.gov Complete Blood Count with [id number] 18:15:23 Test Item Value Reference Range Interpretation [...] code = IPF) 0 % N Automated [id number] 18:15:23 Test Item Value Reference Range Interpretation Comments Neutro Auto (test code = Neutro 42.1 % 36.0-70.0 Auto) Lymph Auto (test code = Lymph Auto) 40.0 % 12.0-44.0 [place] Auto (test code = [place] Auto) 12.2 % 0.0-11.0 H Eos, Auto (test code = Eos, Auto) 4.9 % 0.0-7.0 Basophil Auto (test code = Basophil 0.6 % 0.0-2.0 Auto) Neutro Absolute (test code = Neutro 2.2 x10 1.6-7.4 Absolute) Lymph Absolute (test code = Lymph 2.06 x10 .50-4.60 Absolute) [place] Absolute (test code = [place] .63 x10 .00-1.20 Absolute) Eos Absolute (test code = Eos 0.25 x10 0.00-0.74 Absolute) Baso Absolute (test code = Baso 0.03 x10 0.00-0.21 Absolute) IG [id number] 18:15:23 Test Item Value Reference Range Interpretation Comments IG (test code = IG) 0.2 % 0.0-5.0 IG Abs (test code = IG Abs) 0 x10 N
--- NOTE | 2022-06-01 17:21 | ER ---
Nurse's Notes [facility] Name: Sidra Hodges Age: 47 yrs Sex: Female : 1975 Arrival Date: 06/01/2022 Time: 16:15 Bed Waiting Private MD: Diagnosis: Presentation: 06/01 16:15 Chief complaint: EMS states: "She was trying to hitch hike and couldn't find a ride and ss became nauseous.". Coronavirus screen: Client denies travel out of the [place] in the last 14 days. Ebola Screen: Patient denies exposure to infectious person. Patient denies travel to an Ebola-affected area in the 21 days before illness onset. Initial Sepsis Screen: Does the patient meet any 2 criteria? No. Patient's initial sepsis screen is negative. Does the patient have a suspected source of infection? No. Patient's initial sepsis screen is negative. Risk Assessment: Do you want to hurt yourself or someone else? Patient reports no desire to harm self or others. Onset of symptoms was June 01, 2022. 16:15 Method Of Arrival: EMS: [facility] 16:15 Acuity: CARMITA 4 Historical: - Allergies: 17:20 CARBAMAZEPINE DERIVATIVES; ss 17:20 Depakote; 17:20 Tegretol; ss - PMHx: 17:20 ADD/ADHD; Anxiety; Bipolar disorder; Chronic pain; hemorrhoids; psychiatric; Seizures; ss - PSHx: 17:20 R LEG SX; Assessment: 17:00 Reassessment: called to triage no answer. 17:19 Reassessment: Pt called to triage, no answer. ED Course: 16:15 Patient arrived in ED. am2 17:19 Triage completed. 17:20 No provider procedures requiring assistance completed. Administered Medications: No medications were administered Outcome: 17:20 Patient left the ED. Signatures: Samantha Du RN RN Kateryna Parker am2
== END 2022-06-01 17:20 | disposition left against medical advice (07) ==
LOC: ER 16:00
DX: Z53.21 Procedure and treatment not carried out due to patient leaving prior to being seen by health care provider (principal)
CPT/HCPCS: 99282

== ENCOUNTER 2022-07-02 16:29 | Emergency (ER) | payer SELFPAY ==
--- OUTSIDE RECORDS SUMMARY | 2022-07-02 16:41 | XMS REPORT | Continuity of Care Document ---
:1975 [address] [facility] [place] t Address [address] [place] [address] [address] [place] [address] Care Team Providers Name Role Phone Unavailable Unavailable Unavailable Problems This patient has no known problems. Allergies, Adverse Reactions, Alerts This patient has no known allergies or adverse reactions. Medications This patient has no known medications. Procedures This patient has no known procedures. Results Test Description Test Time Test Comments Results Result Comments Source Valproic Acid Level 2019-01-12 08:03:22 Test Item Value Reference Range Interpretation Comme nts Valproic Acid Level (test code = Valproic Acid Level) 57.6 ug/mL(g) 50.0-100.0 Hemoglobin [id number] 09:36:00 Test Item Value Reference Range Interpretation Comments Hemoglobin A1c (test code 5.0 % 4.8-5.9 No n Diabetic = Hemoglobin A1c) 4.8-5.9%Di abetic <7.0% CT Shoulder w/o Contrast [id number] 16:49:13Patient: BHUMIKA JONES Date/Time01/09/2019 16:14 CDTReason for [...] Adam FSigned (Electronic Signature): 01/09/2019 4:49 pmRPR [id number] 21:33:20 Test Item Value Reference Range Interpretation [...] Expiration Dt) XR Shoulder Complete 2+ Views [id number] 15:41:25Patient: BHUMIKA JONES Date/Time01/07/2019 15:25 CDTReason for [...] CSigned (Electronic Signature): 01/07/2019 3:41 pmThyroid Stimulating [id number] 03:07:04 Test Item Value Reference Range Interpretation Comments TSH (test code = TSH) 9.650 mIU/mL 0.270-4.200 H Lipid [id number] 03:07:03 Test Item Value Reference Range Interpretation Comments Cholesterol Total 199 mg/dL 0-200 RISK OF HE ART (test code = DISEASEPublishe d by Cholesterol Total) [employer] [place] Optimal Borderl ine [...] LDL/HDL Ratio=L DL Calc/HDL Chol HCG Qualitative [id number] 02:33:13 Test Item Value Reference Range Interpretation Comments HCG, Serum Qual (test code = HCG, Negative Serum Qual) Lot # (test code = Lot #) [id number] N Expiration Dt (test code = 2020-04-23 N Expiration Dt) Neg Control (test code = Neg Negative Control) Pos Control (test code = Pos Positive Control) Internal QC (test code = Internal Acceptable QC) Drugs of Abuse Urine [id number] 18:58:11 Test Item Value Reference Range Interpretation [...] (test code = Cannabinoid Screen Ur) Alcohol [id number] 18:47:34 Test Item Value Reference Range Interpretation Comments Ethanol Level (test <0.00 g/dL 0.00-0.01 Intoxica isabel 0.080 g/dL code = Ethanol or more Level) Ethanol Inst (test <0 N code = Ethanol Inst) Comprehensive Metabolic [id number] 18:47:33 Test Item Value Reference Range Interpretation [...] A/G 1.0 ratio N Ratio) Comprehensive Metabolic [id number] 18:47:33 Test Item Value Reference Range Interpretation [...] National Kidney Foundation, http://nkdep.ni h.gov Comprehensive Metabolic [id number] 18:47:33 Test Item Value Reference Range Interpretation [...] ag e have not been validated by [facility] MDRD study and should be [...] ag e have not been validated by [facility] MDRD study and should be interpreted wit h caution. eGFR R esult Interpretation: eGFR > or = 60 is in the Normal RangeeGF R < 60 may mean kid betzaida diseaseeGFR < 1 5 may mean kidney failure Rang es recommended by the National Kidney Foundation, http://nkdep.ni h.gov Complete Blood Count with [id number] 18:15:23 Test Item Value Reference Range Interpretation [...] code = IPF) 0 % N Automated [id number] 18:15:23 Test Item Value Reference Range Interpretation Comments Neutro Auto (test code = Neutro 42.1 % 36.0-70.0 Auto) Lymph Auto (test code = Lymph Auto) 40.0 % 12.0-44.0 [place] Auto (test code = [place] Auto) 12.2 % 0.0-11.0 H Eos, Auto (test code = Eos, Auto) 4.9 % 0.0-7.0 Basophil Auto (test code = Basophil 0.6 % 0.0-2.0 Auto) Neutro Absolute (test code = Neutro 2.2 x10 1.6-7.4 Absolute) Lymph Absolute (test code = Lymph 2.06 x10 .50-4.60 Absolute) [place] Absolute (test code = [place] .63 x10 .00-1.20 Absolute) Eos Absolute (test code = Eos 0.25 x10 0.00-0.74 Absolute) Baso Absolute (test code = Baso 0.03 x10 0.00-0.21 Absolute) IG [id number] 18:15:23 Test Item Value Reference Range Interpretation Comments IG (test code = IG) 0.2 % 0.0-5.0 IG Abs (test code = IG Abs) 0 x10 N
--- NOTE | 2022-07-02 17:48 | EDPHYS ---
Physician Documentation [facility] Name: Sidra Hodges Age: 47 yrs Sex: Female : 1975 Arrival Date: 07/02/2022 Time: 16:31 Bed 5 Private MD: ED Physician Pascual Lundy HPI: 07/02 17:59 This 47 yrs old Female presents to ER via EMS with complaints of Doesn't Feel snw Right. 17:59 pt has epilepsy, c/o seizure. States she would like something to eat. Onset: The snw symptoms/episode began/occurred acutely. 18:01 The patient has experienced similar episodes in the past, chronically. 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 - Social history:: Smoking status: Patient denies any tobacco usage or history of. ROS: 18:02 Eyes: Negative for injury, pain, redness, and discharge, ENT: Negative for injury, snw pain, and discharge, Neck: Negative for injury, pain, and swelling, Cardiovascular: Negative for chest pain, palpitations, and edema, Respiratory: Negative for shortness of breath, cough, wheezing, and pleuritic chest pain, Abdomen/GI: Negative for abdominal pain, nausea, vomiting, diarrhea, and constipation, Back: Negative for injury and pain, : Negative for injury, bleeding, discharge, and swelling, MS/Extremity: Negative for injury and deformity, Skin: Negative for injury, rash, and discoloration. 18:02 Constitutional: Positive for malaise, poor PO intake. 18:02 Neuro: Positive for seizure activity. Exam: 18:01 Constitutional: This is a well developed, well nourished patient who is awake, alert, snw and in no acute distress. Head/Face: Normocephalic, atraumatic. Eyes: Pupils equal round and reactive to light, extra-ocular motions intact. Lids and lashes normal. Conjunctiva and sclera are non-icteric and not injected. Cornea within normal limits. Periorbital areas with no swelling, redness, or edema. Neck: Trachea midline, no thyromegaly or masses palpated, and no cervical lymphadenopathy. Supple, full range of motion without nuchal rigidity, or vertebral point tenderness. No Meningismus. Chest/axilla: Normal chest wall appearance and motion. Nontender with no deformity. No lesions are appreciated. Cardiovascular: Regular rate and rhythm with a normal S1 and S2. No gallops, murmurs, or rubs. Normal PMI, no JVD. No pulse deficits. Respiratory: Lungs have equal breath sounds bilaterally, clear to auscultation and percussion. No rales, rhonchi or wheezes noted. No increased work of breathing, no retractions or nasal flaring. Abdomen/GI: Soft, non-tender, with normal bowel sounds. No distension or tympany. No guarding or rebound. No evidence of tenderness throughout. Neuro: Awake and alert, GCS 15, oriented to person, place, time, and situation. Cranial nerves II-XII grossly intact. Motor strength 5/5 in all extremities. Sensory grossly intact. Cerebellar exam normal. Normal gait. Vital Signs: 16:43 BP 138 / 105; Pulse 72; Resp 16; Temp 98.2; Pulse Ox 98% on R/A; iw 17:07 BP 142 / 84; Pulse 71; Resp 18; Pulse Ox 99% on R/A; db 17:30 BP 148 / 86; Pulse 79; Resp 18; Pulse Ox 100% on R/A; db MDM: 16:50 Patient medically screened. snw 18:00 Differential Diagnosis seizure, anxiety. Data reviewed: vital signs, nurses notes. snw Historians other than the Patient: EMS: Diana. Care significantly affected by the following Social Determinants of Health: Poor access to healthcare and/or lack of insurance, Poor access to transportation, extensive psych history. Special discussion: Based on the history and exam findings, there is no indication for further emergent testing or inpatient evaluation. I discussed with the patient/guardian the need to see the primary care provider for further evaluation of the symptoms. 07/02 16:54 Order name: PO challenge; Complete Time: 17:24 snw Administered Medications: No medications were administered Disposition Summary: 07/02/22 17:47 Discharge Ordered Location: Home snw Condition: Stable snw Diagnosis - Encounter for examination and observation for unspecified reason snw Followup: snw - With: Private Physician - When: 2 - 3 days - Reason: Recheck today's complaints, Continuance of care, Re-evaluation by your physician Discharge Instructions: - Discharge Summary Sheet snw - Medical Screening Exam snw Forms: - Medication Reconciliation Form snw - Thank You Letter snw - Antibiotic Education snw - Prescription Opioid Use snw Signatures: Verito Zepeda FNP-C FLASH OVEN OPERATOR-Csnw Laila Foreman, RN RN iw Sabina Hernandez, RN RN db
--- NOTE | 2022-07-02 17:48 | ER ---
Nurse's Notes [facility] Name: Sidra Hodges Age: 47 yrs Sex: Female : 1975 Arrival Date: 07/02/2022 Time: 16:31 Bed 5 Private MD: Diagnosis: Encounter for examination and observation for unspecified reason Presentation: 07/02 16:43 Chief complaint: Patient states: I had two attacks in my heart and epileptic attacks, iw this happened today and last night I had four attacks, and I'm having chest pain and I dont have money for food so I haven;t eaten. Coronavirus screen: At this time, the client does not indicate any symptoms associated with coronavirus-19. Ebola Screen: Patient negative for fever greater than or equal to 101.5 degrees Fahrenheit, and additional compatible Ebola Virus Disease symptoms Patient denies exposure to infectious person. Patient denies travel to an Ebola-affected area in the 21 days before illness onset. No symptoms or risks identified at this time. Initial Sepsis Screen: Does the patient meet any 2 criteria? No. Patient's initial sepsis screen is negative. Does the patient have a suspected source of infection? No. Patient's initial sepsis screen is negative. Risk Assessment: Do you want to hurt yourself or someone else? Patient reports no desire to harm self or others. Onset of symptoms was July 02, 2022. 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 - Social history:: Smoking status: Patient denies any tobacco usage or history of. Screenin:15 [facility] ED Fall Risk Assessment (Adult) History of falling in the last 3 months, db including since admission No falls in past 3 months (0 pts) Confusion or Disorientation No (0 pts) Intoxicated or Sedated No (0 pts) Impaired Gait Yes (1 pt) Mobility Assist Device Used No (0 pt) Altered Elimination No (0 pt) Score/Fall Risk Level 0 - 2 = Low Risk Oriented to surroundings, Maintained a safe environment. Abuse screen: Denies threats or abuse. Denies injuries from another. Nutritional screening: No deficits noted. Tuberculosis screening: No symptoms or risk factors identified. Assessment: 17:05 Reassessment: Patient appears in no apparent distress at this time. Patient and/or db family updated on plan of care and expected duration. Pain level reassessed. Patient is alert, oriented x 3, equal unlabored respirations, skin warm/dry/pink. General: Appears in no apparent distress. comfortable, Behavior is calm, cooperative. Pain: Denies pain. Neuro: No deficits noted. Level of Consciousness is awake, alert, obeys commands, Oriented to person, place, time, situation, Speech is normal. Cardiovascular: No deficits noted. Respiratory: No deficits noted. Airway is patent Respiratory effort is even, unlabored, Respiratory pattern is regular, symmetrical. GI: No deficits noted. No signs and/or symptoms were reported involving the gastrointestinal system. Abdomen is flat. : No deficits noted. No signs and/or symptoms were reported regarding the genitourinary system. 17:14 Reassessment: Patient appears in no apparent distress at this time. PATIENT PROVIDED db FOOD AND WATER FOR PO CHALLENGE. 17:51 Reassessment: Patient appears in no apparent distress at this time. PATIENT TOLERATED db ALL OF FOOD. 18:16 Reassessment: Patient appears in no apparent distress at this time. Patient and/or db family updated on plan of care and expected duration. Pain level reassessed. Patient is alert, oriented x 3, equal unlabored respirations, skin warm/dry/pink. Vital Signs: 16:43 BP 138 / 105; Pulse 72; Resp 16; Temp 98.2; Pulse Ox 98% on R/A; iw 17:07 BP 142 / 84; Pulse 71; Resp 18; Pulse Ox 99% on R/A; db 17:30 BP 148 / 86; Pulse 79; Resp 18; Pulse Ox 100% on R/A; db ED Course: 15:58 No provider procedures requiring assistance completed. Inserted saline lock: 20 gauge db in right antecubital area, using aseptic technique. Blood collected. 16:31 Patient arrived in ED. rg4 16:45 Triage completed. iw 16:45 Arm band placed on. iw 16:50 [facility] Zepeda [facility]C [facility]. snw 16:50 Pascual Lundy MD is Attending Physician. snw 16:52 Sabina Hernandez, RN is Primary Nurse. db 17:15 Patient has correct armband on for positive identification. Bed in low position. Call db light in reach. Side rails up X 1. Pulse ox on. NIBP on. Warm blanket given. 18:17 IV discontinued, intact, bleeding controlled, No redness/swelling at site. db Administered Medications: No medications were administered Medication: 17:24 VIS not applicable for this client. db Outcome: 17:47 Discharge ordered by . snw 18:17 Discharged to home ambulatory. db 18:17 Condition: stable 18:17 Discharge instructions given to patient, Instructed on discharge instructions, follow up and referral plans. Demonstrated understanding of 18:17 Patient left the ED. db Signatures: Verito Zepeda FNP-C [employer] Laila Foreman, RN RN Ania Petty rg4 Sabina Hernandez, RN RN db
[2022-07-02 19:45] VITALS: TEMP 98.2
[2022-07-02 20:05] VITALS: BP 148/86; O2SAT 100
== END 2022-07-02 18:17 | disposition home or self-care (01) ==
LOC: ER 16:29
DX: G40.909 Epilepsy, unspecified, not intractable, without status epilepticus (principal)
CPT/HCPCS: 99284

== ENCOUNTER 2022-07-19 12:02 | Emergency (ER) | payer SELFPAY ==
--- OUTSIDE RECORDS SUMMARY | 2022-07-19 12:06 | XMS REPORT | Continuity of Care Document ---
:[address] [facility] t Address [address] [place] [address] Care Team Providers Name Role Phone Swapnil Fung Primary Care Physician [phone] Problems This patient has no known problems. Allergies, Adverse Reactions, Alerts This patient has no known allergies or adverse reactions. Medications Ordered Filled Start Stop Current Ordering Indication Dosage Frequency Signature Comments Components Source Medication Medication Date Date Medication? Clinician (SIG) Name Name TAKE 1 2021-06 No TABLET BY 2-29 MOUTH IN 00:00: THE MORNING 00 AND 1 TABLET AT BEDTIME hydroxyzine 2020-06 No 1mg HCl 25 mg 2-21 tablet 00:00: 00 ibuprofen 2020- No 1mg 600 mg 1-11 tablet 00:00: 00 Keflex 500 2020-0 No 1mg mg capsule 1-30 00:00: 00 Bromfed DM 2019-0 No 5mg/5 2 mg-30 1-30 mL mg-10 mg/5 00:00: mL oral 00 syrup mupirocin 2 2020-0 No 1% % topical 1-23 ointment 00:00: 00 Keflex 500 2020-0 No 1mg mg capsule 1-23 00:00: 00 mupirocin 2 2020-0 No 1% % topical 1-17 ointment 00:00: 00 ibuprofen 2020-0 No 1mg 800 mg 1-17 tablet 00:00: 00 Keflex 500 2020-0 No 1mg mg capsule 1-17 00:00: 00 Dose 2019-1 No Unknown 0-01 00:00: 00 Depakote 2019-0 No 1mg 500 mg 2-19 tablet,nette 00:00: yed release 00 Trileptal 2019-0 No 2mg 300 mg 2-19 tablet 00:00: 00 folic acid 2019-0 No 1mg 1 mg tablet 1-17 00:00: 00 Dose 2018-1 No Unknown 2-18 00:00: 00 Depakote 2018-1 No 1mg 500 mg 2-18 tablet,nette 00:00: yed release 00 Trileptal 2018-1 No 2mg 300 mg 2-18 tablet 00:00: 00 Bactrim DS 2018-1 No 1mg 800 mg-160 2-18 mg tablet 00:00: 00 nystatin-tr 2018-0 No 1unit/g iamcinolone 4-05 -% 100,000 00:00: unit/g-0.1 00 % topical cream Anusol-HC 2018-0 No 1mg 25 mg 4-05 rectal 00:00: suppository 00 Stool 2018-0 No 1mg Softener 4-05 100 mg 00:00: capsule 00 sulfamethox 2018-0 No 1mg azole 800 4-03 mg-trimetho 00:00: prim 160 mg 00 tablet prednisone 2018-0 No 2mg 20 mg 3-27 tablet 00:00: 00 ibuprofen 2018-0 No 1mg 800 mg 3-27 tablet 00:00: 00 cyclobenzap 2018-0 No 1mg rine 10 mg 3-27 tablet 00:00: 00 cyclobenzap 2018-0 No 1mg rine 10 mg 3-13 tablet 00:00: 00 ibuprofen 2018-0 No 1mg 800 mg 3-13 tablet 00:00: 00 prednisone 2018-0 No 2mg 20 mg 3-13 tablet 00:00: 00 Trileptal 2016-0 No 2mg 300 mg 8-09 tablet 00:00: 00 Depakote 2016-0 No 1mg 500 mg 8-09 tablet,nette 00:00: yed release 00 Abilify 2 2016-0 No 2mg mg tablet 8- 00:00: 00 Anusol-HC 2016-0 No 1mg 25 mg 8-09 rectal 00:00: suppository 00 Stool 2016-0 No 1mg Softener 8-09 100 mg 00:00: capsule 00 pantoprazol 2015-0 No 1mg e 20 mg 3-04 tablet,nette 00:00: yed release 00 Immunizations Ordered Immunization Filled Immunization Date Status Commen ts Source Name Name Patrick VILLANUEVA-19 2022-01-08 Completed Vaccine 00:00:00 Patrick VILLANUEVA-19 2020-09-27 Completed Vaccine 00:00:00 Gabia COVID-19 2020-08-26 Completed Vaccine 00:00:00 Vital Signs Vital Name Observation Time Observation Value Comments Source BP Systolic 2022-07-17 15:20:00 133 mm[Hg] BP Diastolic 2022-07-17 15:20:00 84 mm[Hg] Weight Measured 2022-07-17 15:20:00 174.80 pounds Height Measured 2022-07-17 15:20:00 56.50 inches Body Temperature 2022-07-17 15:20:00 98.20 degrees Heart Rate 2022-07-17 15:20:00 73.00 /min Respiratory Rate 2022-07-17 15:20:00 18.00 /min Heart Rate 2021-06-13 10:55:00 74.00 /min Respiratory Rate 2021-06-13 10:55:00 17.00 /min BP Systolic 2021-06-13 10:55:00 121 mm[Hg] BP Diastolic 2021-06-13 10:55:00 76 mm[Hg] Weight Measured 2021-06-13 10:55:00 168.00 pounds Height Measured 2021-06-13 10:55:00 56.50 inches Body Temperature 2021-06-13 10:55:00 97.70 degrees BP Systolic 2021-05-04 10:46:00 125 mm[Hg] BP Diastolic 2021-05-04 10:46:00 81 mm[Hg] Weight Measured 2021-05-04 10:46:00 162.20 pounds Height Measured 2021-05-04 10:46:00 56.50 inches Body Temperature 2021-05-04 10:46:00 97.90 degrees Heart Rate 2021-05-04 10:46:00 73.00 /min Respiratory Rate 2021-05-04 10:46:00 18.00 /min BP Systolic 2019-09-15 13:54:00 109 mm[Hg] BP Diastolic 2019-09-15 13:54:00 70 mm[Hg] Weight Measured 2019-09-15 13:54:00 170.00 pounds Height Measured 2019-09-15 13:54:00 56.50 inches Body Temperature 2019-09-15 13:54:00 98.50 degrees Heart Rate 2019-09-15 13:54:00 70.00 /min Respiratory Rate 2019-09-15 13:54:00 18.00 /min BP Systolic 2019-09-09 00:47:00 112 mm[Hg] BP Diastolic 2019-09-09 00:47:00 76 mm[Hg] Weight Measured 2019-09-09 00:47:00 170.00 pounds Height Measured 2019-09-09 00:47:00 56.50 inches Body Temperature 2019-09-09 00:47:00 97.90 degrees Heart Rate 2019-09-09 00:47:00 77.00 /min Respiratory Rate 2019-09-09 00:47:00 17.00 /min BP Systolic 2019-09-01 14:16:00 125 mm[Hg] BP Diastolic 2019-09-01 14:16:00 70 mm[Hg] Weight Measured 2019-09-01 14:16:00 170.00 pounds Height Measured 2019-09-01 14:16:00 56.50 inches Body Temperature 2019-09-01 14:16:00 97.90 degrees Heart Rate 2019-09-01 14:16:00 78.00 /min Respiratory Rate 2019-09-01 14:16:00 17.00 /min BP Systolic 2019-08-11 13:16:00 120 mm[Hg] BP Diastolic 2019-08-11 13:16:00 82 mm[Hg] Weight Measured 2019-08-11 13:16:00 170.00 pounds Height Measured 2019-08-11 13:16:00 56.50 inches Body Temperature 2019-08-11 13:16:00 97.60 degrees Heart Rate 2019-08-11 13:16:00 88.00 /min Respiratory Rate 2019-08-11 13:16:00 17.00 /min BP Systolic 2019-08-04 10:51:00 117 mm[Hg] BP Diastolic 2019-08-04 10:51:00 76 mm[Hg] Weight Measured 2019-08-04 10:51:00 170.00 pounds Height Measured 2019-08-04 10:51:00 56.50 inches Body Temperature 2019-08-04 10:51:00 97.90 degrees Heart Rate 2019-08-04 10:51:00 98.00 /min Respiratory Rate 2019-08-04 10:51:00 17.00 /min Procedures Procedure Date / Time Performed Performing Clinician [facility] e [address] Ecg Routine Ecg W/least 12 2017-09-24 00:00:00 Lds W/i r Plan of Care Planned Activity Planned Date Details Comments Source Goal Plan of Care Note [code = 20605-9] Goal Plan of Care Note [code = 36769-1] Goal Plan of Care Note [code = 11116-7] Goal Plan of Care Note [code = 82227-5] Goal Plan of Care Note [code = 94323-0] Goal Plan of Care Note [code = 97079-4] Goal Plan of Care Note [code = 07016-5] Goal Plan of Care Note [code = 49161-5] Goal Plan of Care Note [code = 93157-6] Goal Plan of Care Note [code = 18238-7] Goal Plan of Care Note [code = 95021-5] Goal Plan of Care Note [code = 04410-4] Goal Plan of Care Note [code = 16317-5] Goal Plan of Care Note [code = 93661-2] Goal Plan of Care Note [code = 17974-6] Goal Plan of Care Note [code = 64224-2] Goal Plan of Care Note [code = 04009-9] Goal Plan of Care Note [code = 88556-9] Goal Plan of Care Note [code = 46921-3] Goal Plan of Care Note [code = 33852-6] Goal Plan of Care Note [code = 92380-5] Goal Plan of Care Note [code = 67690-1] Goal Plan of Care Note [code = 76625-3] Goal Plan of Care Note [code = 35302-3] Goal Plan of Care Note [code = 77080-0] Goal Plan of Care Note [code = 04069-2] Goal Plan of Care Note [code = 93368-9] Goal Plan of Care Note [code = 26718-4] Goal Plan of Care Note [code = 75617-3] Encounters Start End Encounter Admission Attending Care Care Encounter Source Date/Time Date/Time Type Type Clinicians Facility Department ID 2022-07-17 2022-07-17 Outpatient [facility] [id number] 023 Henry 15:03:48 15:03:48 012Ivette Contreras 2022-07-17 2022-07-17 Outpatient [id number] [id number] 00:00:00 00:00:00 Visit [id number] Results Test Description Test Time Test Comments Results Result Comments Source SARS-CoV-2 (COVID-19) by RT-PCR (HIGH RISK) 2020-08-19 00:00 :00 Test Item Value Reference Range Interpretation Comme nts SARS-CoV-2 INTERPRETATION (test code = 37433) NEGATIVE SOURCE (test code = 59420) NOT SPECIFIED SARS-CoV-2 (COVID-19) by RT-PCR (HIGH RISK)2020-08-19 00:00:00 Test Item Value Reference Range Interpretation Comments SARS-CoV-2 INTERPRETATION (test NEGATIVE code = 86360) SOURCE (test code = 42798) NOT SPECIFIED PAP TEST, THINPREP, [id number] 00:00:00 Test Item Value Reference Range Interpretation Comments SOURCE: (test code = Cervical/Endocervical 8001) SLIDES: (test code = 1 8011) LMP: (test code = 8021) 06/2017 SPECIMEN ADEQUACY: (test (NOTE) code = 57059) INTERPRETATION: (test NILM/NO EPITH. code = 59113) ABNORMALITY;SEE BELOW ASSISTANT TEACHER: (test Malek code = 8101) [place], [place](ASCP) IAC LOCATION: (test code = (NOTE) 69744) CPT: (test code = 8140) (NOTE) PAP TEST, THINPREP, [id number] 00:00:00 Test Item Value Reference Range Interpretation Comments SOURCE: (test code = Cervical/Endocervical 8001) SLIDES: (test code = 1 8011) LMP: (test code = 8021) 06/2017 SPECIMEN ADEQUACY: (test (NOTE) code = 53714) INTERPRETATION: (test NILM/NO EPITH. code = 87442) ABNORMALITY;SEE BELOW ASSISTANT TEACHER: (test Malek code = 8101) [facility]AC LOCATION: (test code = (NOTE) 69858) CPT: (test code = 8140) (NOTE) HPV HIGH RISK WITH GENOTYPE, [id number] 00:00:00 Test Item Value Reference Range Interpretation Comments HPV HIGH RISK INTERP (test code = NEGATIVE 82652) HPV 16 (test code = 88473) NEGATIVE HPV 18 (test code = 17660) NEGATIVE HPV, HR, OTHER GENOTYPES (test code NEGATIVE = 89996) HPV HIGH RISK WITH GENOTYPE, [id number] 00:00:00 Test Item Value Reference Range Interpretation Comments HPV HIGH RISK INTERP (test code = NEGATIVE 34192) HPV 16 (test code = 65891) NEGATIVE HPV 18 (test code = 20974) NEGATIVE HPV, HR, OTHER GENOTYPES (test code NEGATIVE = 46082) Valproic Acid [id number] 08:03:22 Test Item Value Reference Range Interpretation Comments Valproic Acid Level (test code 57.6 ug/mL(g) 50.0-100.0 = Valproic Acid Level) Hemoglobin [id number] 09:36:00 Test Item Value Reference Range Interpretation Comments Hemoglobin A1c (test code 5.0 % 4.8-5.9 No n Diabetic = Hemoglobin A1c) 4.8-5.9%Di abetic <7.0% CT Shoulder w/o Contrast [id number] 16:49:13Patient: BHUMIKA JONES Date/Time01/09/2019 16:14 CDTReason for [...] Adam FSigned (Electronic Signature): 01/09/2019 4:49 pmRPR [id number] 21:33:20 Test Item Value Reference Range Interpretation [...] Expiration Dt) XR Shoulder Complete 2+ Views [id number] 15:41:25Patient: BHUMIKA JONES Date/Time01/07/2019 15:25 CDTReason for [...] CSigned (Electronic Signature): 01/07/2019 3:41 pmThyroid Stimulating [id number] 03:07:04 Test Item Value Reference Range Interpretation Comments TSH (test code = TSH) 9.650 mIU/mL 0.270-4.200 H Lipid [id number] 03:07:03 Test Item Value Reference Range Interpretation Comments Cholesterol Total 199 mg/dL 0-200 RISK OF HE ART (test code = DISEASEPublishe d by Cholesterol Total) [place] [place] Optimal Borderl ine [...] LDL/HDL Ratio=L DL Calc/HDL Chol HCG Qualitative [id number] 02:33:13 Test Item Value Reference Range Interpretation Comments HCG, Serum Qual (test code = HCG, Negative Serum Qual) Lot # (test code = Lot #) [id number] N Expiration Dt (test code = 2020-04-23 N Expiration Dt) Neg Control (test code = Neg Negative Control) Pos Control (test code = Pos Positive Control) Internal QC (test code = Internal Acceptable QC) Drugs of Abuse Urine [id number] 18:58:11 Test Item Value Reference Range Interpretation [...] (test code = Cannabinoid Screen Ur) Alcohol [id number] 18:47:34 Test Item Value Reference Range Interpretation Comments Ethanol Level (test <0.00 g/dL 0.00-0.01 Intoxica isabel 0.080 g/dL code = Ethanol or more Level) Ethanol Inst (test <0 N code = Ethanol Inst) Comprehensive Metabolic [id number] 18:47:33 Test Item Value Reference Range Interpretation [...] A/G 1.0 ratio N Ratio) Comprehensive Metabolic [id number] 18:47:33 Test Item Value Reference Range Interpretation [...] National Kidney Foundation, http://nkdep.ni h.gov Comprehensive Metabolic [id number] 18:47:33 Test Item Value Reference Range Interpretation [...] ag e have not been validated by [facility] MDRD study and should be [...] ag e have not been validated by [facility] MDRD study and should be interpreted wit h caution. eGFR R esult Interpretation: eGFR > or = 60 is in the Normal RangeeGF R < 60 may mean kid betzaida diseaseeGFR < 1 5 may mean kidney failure Rang es recommended by the National Kidney Foundation, http://nkdep.ni h.gov Complete Blood Count with [id number] 18:15:23 Test Item Value Reference Range Interpretation [...] code = IPF) 0 % N Automated [id number] 18:15:23 Test Item Value Reference Range Interpretation Comments Neutro Auto (test code = Neutro 42.1 % 36.0-70.0 Auto) Lymph Auto (test code = Lymph Auto) 40.0 % 12.0-44.0 Graham Auto (test code = Graham Auto) 12.2 % 0.0-11.0 H Eos, Auto (test code = Eos, Auto) 4.9 % 0.0-7.0 Basophil Auto (test code = Basophil 0.6 % 0.0-2.0 Auto) Neutro Absolute (test code = Neutro 2.2 x10 1.6-7.4 Absolute) Lymph Absolute (test code = Lymph 2.06 x10 .50-4.60 Absolute) Graham Absolute (test code = Graham .63 x10 .00-1.20 Absolute) Eos Absolute (test code = Eos 0.25 x10 0.00-0.74 Absolute) Baso Absolute (test code = Baso 0.03 x10 0.00-0.21 Absolute) IG [id number] 18:15:23 Test Item Value Reference Range Interpretation Comments IG (test code = IG) 0.2 % 0.0-5.0 IG Abs (test code = IG Abs) 0 x10 N VALPROIC [id number] 00:00:00 Test Item Value Reference Range Interpretation Comments VALPROIC ACID (test code = 3025) 69.8 UG/ML VALPROIC [id number] 00:00:00 Test Item Value Reference Range Interpretation Comments VALPROIC ACID (test code = 3025) 69.8 UG/ML URINE CULTURE, NO [id number] 00:00:00 Test Item Value Reference Range Interpretation Comments URINE CULTURE, NO SPECIMEN NUMBER: SENS (test code = 99108732 85733) URINE CULTURE, NO [id number] 00:00:00 Test Item Value Reference Range Interpretation Comments URINE CULTURE, NO SPECIMEN NUMBER: SENS (test code = [id number] 11485) [id number] 00:00:00 Test Item Value Reference Range Interpretation Comments TRANSFERRIN (test code = 4936) 269 MG/DL [id number] 00:00:00 Test Item Value Reference Range Interpretation Comments TRANSFERRIN (test code = 4936) 269 MG/DL FOLIC [id number] 00:00:00 Test Item Value Reference Range Interpretation Comments FOLIC ACID (test code = 2695) 5.4 UG/L FOLIC [id number] 00:00:00 Test Item Value Reference Range Interpretation Comments FOLIC ACID (test code = 2695) 5.4 UG/L IRON BINDING CAPACITY AND IRON AND % [id number] 00:00:00 Test Item Value Reference Range Interpretation Comments IRON, SERUM (test code = 2222) 42 UG/DL UNSATURATED IBC (test code = 44891) 279 UG/DL CALC TOTAL IBC (test code = 2077) 321 UG/DL CALC % IRON SAT (test code = 2079) 13 % IRON BINDING CAPACITY AND IRON AND % [id number] 00:00:00 Test Item Value Reference Range Interpretation Comments IRON, SERUM (test code = 2222) 42 UG/DL UNSATURATED IBC (test code = 11375) 279 UG/DL CALC TOTAL IBC (test code = 2077) 321 UG/DL CALC % IRON SAT (test code = 2079) 13 % [id number] 00:00:00 Test Item Value Reference Range Interpretation Comments FERRITIN (test code = 2075) 15 NG/ML [id number] 00:00:00 Test Item Value Reference Range Interpretation Comments FERRITIN (test code = 2075) 15 NG/ML CULTURE, URINE [ADDED]2018-06-12 00:00:00 Test Item Value Reference Range Interpretation Comments CULTURE, URINE (test SPECIMEN NUMBER: code = 48317) [id number] CULTURE, URINE [ADDED]2018-06-12 00:00:00 Test Item Value Reference Range Interpretation Comments CULTURE, URINE (test SPECIMEN NUMBER: code = 25242) [id number] COMPREHENSIVE METABOLIC [id number] 00:00:00 Test Item Value Reference Range Interpretation Comments GLUCOSE (test code = 2217) 86 MG/DL BUN (test code = 2208) 16 MG/DL CREATININE (test code = 2214) 0.45 MG/DL eGFR AMER. (test code 141 ML/MIN/1.73 = 99906) eGFR NON- AMER. (test 122 ML/MIN/1.73 code = 38839) CALC BUN/CREAT (test code = 36 RATIO 2235) SODIUM (test code = 2231) 136 MEQ/L POTASSIUM (test code = 2228) 4.6 MEQ/L CHLORIDE (test code = 2215) 101 MEQ/L CARBON DIOXIDE (test code = 25 MEQ/L 2205) CALCIUM (test code = 2209) 8.7 MG/DL PROTEIN, TOTAL (test code = 6.6 G/DL 2228) ALBUMIN (test code = 2201) 3.5 G/DL CALC GLOBULIN (test code = 3.1 G/DL 2240) CALC A/G RATIO (test code = 1.1 RATIO 2234) BILIRUBIN, TOTAL (test code = <0.2 MG/DL 2206) ALKALINE PHOSPHATASE (test 76 U/L code = 2204) AST (test code = 2218) 24 U/L ALT (test code = 2219) 17 U/L COMPREHENSIVE METABOLIC [id number] 00:00:00 Test Item Value Reference Range Interpretation Comments GLUCOSE (test code = 2217) 86 MG/DL BUN (test code = 2208) 16 MG/DL CREATININE (test code = 2214) 0.45 MG/DL eGFR AMER. (test code 141 ML/MIN/1.73 = 25201) eGFR NON- AMER. (test 122 ML/MIN/1.73 code = 62607) CALC BUN/CREAT (test code = 36 RATIO 2235) SODIUM (test code = 2231) 136 MEQ/L POTASSIUM (test code = 2228) 4.6 MEQ/L CHLORIDE (test code = 2215) 101 MEQ/L CARBON DIOXIDE (test code = 25 MEQ/L 2205) CALCIUM (test code = 2209) 8.7 MG/DL PROTEIN, TOTAL (test code = 6.6 G/DL 2228) ALBUMIN (test code = 2201) 3.5 G/DL CALC GLOBULIN (test code = 3.1 G/DL 2239) CALC A/G RATIO (test code = 1.1 RATIO 2233) BILIRUBIN, TOTAL (test code = <0.2 MG/DL 2206) ALKALINE PHOSPHATASE (test 76 U/L code = 220) AST (test code = 2218) 24 U/L ALT (test code = 2219) 17 U/L VALPROIC [id number] 00:00:00 Test Item Value Reference Range Interpretation Comments VALPROIC ACID (test code = 3025) 100.9 UG/ML VALPROIC [id number] 00:00:00 Test Item Value Reference Range Interpretation Comments VALPROIC ACID (test code = 3025) 100.9 UG/ML CBC W/AUTO [id number] 00:00:00 Test Item Value Reference Range Interpretation Comments WBC (test code = 1001) 4.7 K/UL RBC (test code = 1002) 3.49 M/UL HEMOGLOBIN (test code = 1003) 10.3 G/DL HEMATOCRIT (test code = 1004) 31.2 % MCV (test code = 1005) 89.4 fL MCH (test code = 1006) 29.5 PG MCHC (test code = 1007) 33.0 G/DL RDW (test code = 1038) 15.3 % NEUTROPHILS (test code = 1008) 40.0 % LYMPHOCYTES (test code = 1010) 41.6 % MONOCYTES (test code = 1011) 13.8 % EOSINOPHILS (test code = 1012) 3.8 % BASOPHILS (test code = 1013) 0.8 % PLATELET COUNT (test code = 1015) 184 K/UL CBC W/AUTO [id number] 00:00:00 Test Item Value Reference Range Interpretation Comments WBC (test code = 1001) 4.7 K/UL RBC (test code = 1002) 3.49 M/UL HEMOGLOBIN (test code = 1003) 10.3 G/DL HEMATOCRIT (test code = 1004) 31.2 % MCV (test code = 1005) 89.4 fL MCH (test code = 1006) 29.5 PG MCHC (test code = 1007) 33.0 G/DL RDW (test code = 1038) 15.3 % NEUTROPHILS (test code = 1008) 40.0 % LYMPHOCYTES (test code = 1010) 41.6 % MONOCYTES (test code = 1011) 13.8 % EOSINOPHILS (test code = 1012) 3.8 % BASOPHILS (test code = 1013) 0.8 % PLATELET COUNT (test code = 1015) 184 K/UL CBC W/AUTO [id number] 00:00:00 Test Item Value Reference Range Interpretation Comments WBC (test code = 1001) 4.7 K/UL RBC (test code = 1002) 3.49 M/UL HEMOGLOBIN (test code = 1003) 10.3 G/DL HEMATOCRIT (test code = 1004) 31.2 % MCV (test code = 1005) 89.4 fL MCH (test code = 1006) 29.5 PG MCHC (test code = 1007) 33.0 G/DL RDW (test code = 1038) 15.3 % NEUTROPHILS (test code = 1008) 40.0 % LYMPHOCYTES (test code = 1010) 41.6 % MONOCYTES (test code = 1011) 13.8 % EOSINOPHILS (test code = 1012) 3.8 % BASOPHILS (test code = 1013) 0.8 % PLATELET COUNT (test code = 1015) 184 K/UL PAP TEST, THINPREP, [id number] 00:00:00 Test Item Value Reference Range Interpretation Comments SOURCE: (test code = Cervical/Endocervical 8001) SLIDES: (test code = 1 8011) LMP: (test code = 03/2017 8021) SPECIMEN ADEQUACY: (NOTE) (test code = 22145) INTERPRETATION: (test NO EPITHELIAL code = 17180) ABNORMALITY SEE BELOW ASSISTANT TEACHER: Santi Elizondo, (test code = 8101) CT(ASCP)IAC LOCATION: (test code (NOTE) = 52409) CPT: (test code = (NOTE) 8140) PAP TEST, THINPREP, [id number] 00:00:00 Test Item Value Reference Range Interpretation Comments SOURCE: (test code = Cervical/Endocervical 8001) SLIDES: (test code = 1 8011) LMP: (test code = 03/2017 8021) SPECIMEN ADEQUACY: (NOTE) (test code = 14146) INTERPRETATION: (test NO EPITHELIAL code = 20553) ABNORMALITY SEE BELOW ASSISTANT TEACHER: Santi Elizondo, (test code = 8101) CT(ASCP)IAC LOCATION: (test code (NOTE) = 79677) CPT: (test code = (NOTE) 8140) HPV HIGH RISK WITH GENOTYPE, [id number] 00:00:00 Test Item Value Reference Range Interpretation Comments HPV HIGH RISK INTERP (test code = NEGATIVE 81691) HPV 16 (test code = 97262) NEGATIVE HPV 18 (test code = 22161) NEGATIVE HPV, HR, OTHER GENOTYPES (test code NEGATIVE = 96942) HPV HIGH RISK WITH GENOTYPE, [id number] 00:00:00 Test Item Value Reference Range Interpretation Comments HPV HIGH RISK INTERP (test code = NEGATIVE 60090) HPV 16 (test code = 16024) NEGATIVE HPV 18 (test code = 16256) NEGATIVE HPV, HR, OTHER GENOTYPES (test code NEGATIVE = 40986) GC AND CHLAMYDIA AMPLIFIED, [id number] 00:00:00 Test Item Value Reference Range Interpretation Comments GONORRHEA, TMA (test code = 83474) NEGATIVE CHLAMYDIA, TMA (test code = 48148) NEGATIVE HIV AB/AG COMBO RFLX [id number] 00:00:00 Test Item Value Reference Range Interpretation Comments HIV 1/2 4TH GEN, RFLX CONF (test NON-REACTIVE code = 3514) GC AND CHLAMYDIA AMPLIFIED, [id number] 00:00:00 Test Item Value Reference Range Interpretation Comments GONORRHEA, TMA (test code = 33886) NEGATIVE CHLAMYDIA, TMA (test code = 95192) NEGATIVE HIV AB/AG COMBO RFLX [id number] 00:00:00 Test Item Value Reference Range Interpretation Comments HIV 1/2 4TH GEN, RFLX CONF (test NON-REACTIVE code = 3514) HEMOGLOBIN [id number] 00:00:00 Test Item Value Reference Range Interpretation Comments HEMOGLOBIN A1c (test code = 32223) 5.2 % HEMOGLOBIN [id number] 00:00:00 Test Item Value Reference Range Interpretation Comments HEMOGLOBIN A1c (test code = 98618) 5.2 % HEMOGLOBIN [id number] 00:00:00 Test Item Value Reference Range Interpretation Comments HEMOGLOBIN A1c (test code = 79503) 5.2 % [id number] 00:00:00 Test Item Value Reference Range Interpretation Comments TSH (test code = 2821) 2.020 UIU/ML [id number] 00:00:00 Test Item Value Reference Range Interpretation Comments TSH (test code = 2821) 2.020 UIU/ML [id number] 00:00:00 Test Item Value Reference Range Interpretation Comments TSH (test code = 2821) 2.020 UIU/ML COMPREHENSIVE METABOLIC [id number] 00:00:00 Test Item Value Reference Range Interpretation Comments GLUCOSE (test code = 2217) 90 MG/DL BUN (test code = 2208) 21 MG/DL CREATININE (test code = 2214) 0.42 MG/DL eGFR AMER. (test code 145 ML/MIN/1.73 = 92720) eGFR NON- AMER. (test 126 ML/MIN/1.73 code = 65825) CALC BUN/CREAT (test code = 50 RATIO 2235) SODIUM (test code = 2231) 139 MEQ/L POTASSIUM (test code = 2228) 4.0 MEQ/L CHLORIDE (test code = 2215) 99 MEQ/L CARBON DIOXIDE (test code = 24 MEQ/L 2205) CALCIUM (test code = 2209) 9.3 MG/DL PROTEIN, TOTAL (test code = 7.1 G/DL 2228) ALBUMIN (test code = 2201) 3.7 G/DL CALC GLOBULIN (test code = 3.4 G/DL 0) CALC A/G RATIO (test code = 1.1 RATIO 2234) BILIRUBIN, TOTAL (test code = 0.1 MG/DL 2206) ALKALINE PHOSPHATASE (test 54 U/L code = 2204) AST (test code = 2218) 11 U/L ALT (test code = 2219) <5 U/L COMPREHENSIVE METABOLIC [id number] 00:00:00 Test Item Value Reference Range Interpretation Comments GLUCOSE (test code = 2217) 90 MG/DL BUN (test code = 2208) 21 MG/DL CREATININE (test code = 2214) 0.42 MG/DL eGFR AMER. (test code 145 ML/MIN/1.73 = 71920) eGFR NON- AMER. (test 126 ML/MIN/1.73 code = 70069) CALC BUN/CREAT (test code = 50 RATIO 2235) SODIUM (test code = 2231) 139 MEQ/L POTASSIUM (test code = 2228) 4.0 MEQ/L CHLORIDE (test code = 2215) 99 MEQ/L CARBON DIOXIDE (test code = 24 MEQ/L 2205) CALCIUM (test code = 2209) 9.3 MG/DL PROTEIN, TOTAL (test code = 7.1 G/DL 2228) ALBUMIN (test code = 2201) 3.7 G/DL CALC GLOBULIN (test code = 3.4 G/DL 2239) CALC A/G RATIO (test code = 1.1 RATIO 2234) BILIRUBIN, TOTAL (test code = 0.1 MG/DL 2206) ALKALINE PHOSPHATASE (test 54 U/L code = 2204) AST (test code = 2218) 11 U/L ALT (test code = 2219) <5 U/L LIPID [id number] 00:00:00 Test Item Value Reference Range Interpretation Comments CHOLESTEROL (test code = 2210) 186 MG/DL TRIGLYCERIDES (test code = 2232) 131 MG/DL HDL CHOLESTEROL (test code = 2220) 67 MG/DL CALC LDL CHOL (test code = 2237) 93 MG/DL RISK RATIO LDL/HDL (test code = 1.39 RATIO 2238) LIPID [id number] 00:00:00 Test Item Value Reference Range Interpretation Comments CHOLESTEROL (test code = 2210) 186 MG/DL TRIGLYCERIDES (test code = 2232) 131 MG/DL HDL CHOLESTEROL (test code = 2220) 67 MG/DL CALC LDL CHOL (test code = 2237) 93 MG/DL RISK RATIO LDL/HDL (test code = 1.39 RATIO 2238) CBC W/AUTO [id number] 00:00:00 Test Item Value Reference Range Interpretation Comments WBC (test code = 1001) 5.1 K/UL RBC (test code = 1002) 3.68 M/UL HEMOGLOBIN (test code = 1003) 10.8 G/DL HEMATOCRIT (test code = 1004) 32.1 % MCV (test code = 1005) 87.2 fL MCH (test code = 1006) 29.3 PG MCHC (test code = 1007) 33.6 G/DL RDW (test code = 1038) 14.0 % NEUTROPHILS (test code = 1008) 52.9 % LYMPHOCYTES (test code = 1010) 33.3 % MONOCYTES (test code = 1011) 8.9 % EOSINOPHILS (test code = 1012) 3.9 % BASOPHILS (test code = 1013) 1.0 % PLATELET COUNT (test code = 1015) 152 K/UL CBC W/AUTO [id number] 00:00:00 Test Item Value Reference Range Interpretation Comments WBC (test code = 1001) 5.1 K/UL RBC (test code = 1002) 3.68 M/UL HEMOGLOBIN (test code = 1003) 10.8 G/DL HEMATOCRIT (test code = 1004) 32.1 % MCV (test code = 1005) 87.2 fL MCH (test code = 1006) 29.3 PG MCHC (test code = 1007) 33.6 G/DL RDW (test code = 1038) 14.0 % NEUTROPHILS (test code = 1008) 52.9 % LYMPHOCYTES (test code = 1010) 33.3 % MONOCYTES (test code = 1011) 8.9 % EOSINOPHILS (test code = 1012) 3.9 % BASOPHILS (test code = 1013) 1.0 % PLATELET COUNT (test code = 1015) 152 K/UL CBC W/AUTO [id number] 00:00:00 Test Item Value Reference Range Interpretation Comments WBC (test code = 1001) 5.1 K/UL RBC (test code = 1002) 3.68 M/UL HEMOGLOBIN (test code = 1003) 10.8 G/DL HEMATOCRIT (test code = 1004) 32.1 % MCV (test code = 1005) 87.2 fL MCH (test code = 1006) 29.3 PG MCHC (test code = 1007) 33.6 G/DL RDW (test code = 1038) 14.0 % NEUTROPHILS (test code = 1008) 52.9 % LYMPHOCYTES (test code = 1010) 33.3 % MONOCYTES (test code = 1011) 8.9 % EOSINOPHILS (test code = 1012) 3.9 % BASOPHILS (test code = 1013) 1.0 % PLATELET COUNT (test code = 1015) 152 K/UL
--- NOTE | 2022-07-19 13:03 | RAD REPORT ---
EXAM DESCRIPTION: RAD - Ankle Left 3 View -07/19/2022 12:50 pm CLINICAL HISTORY: Left ankle pain status post injury FINDINGS: The lateral soft tissue swelling Curvilinear lucency distal fibula probably prominent trabecula. No fracture or dislocation seen. If patient's pain persists then follow up x-ray in 7 days would be recommended for re-evaluation
--- NOTE | 2022-07-19 13:20 | EDPHYS ---
Physician Documentation [facility] Name: Sidra Hodges Age: 47 yrs Sex: Female : 1975 Arrival Date: 07/19/2022 Time: 12:06 Bed DIS4 Private MD: ED Physician Puneet Glover HPI: 07/19 12:20 This 47 yrs old Female presents to ER via EMS with complaints of Fall Injury, cp Ankle Injury. 12:20 The patient presents with an injury, pain, that is acute, swelling, tenderness. The cp complaints affect the left ankle. Onset: The symptoms/episode began/occurred today. Context: trip and fall. Associated signs and symptoms: The patient has no apparent associated signs or symptoms. Historical: - Allergies: 12:09 CARBAMAZEPINE DERIVATIVES; aa5 12:09 Depakote; aa5 12:09 Tegretol; aa5 - PMHx: 12:09 ADD/ADHD; Anxiety; Bipolar disorder; Chronic pain; hemorrhoids; Seizures; aa5 - PSHx: 12:09 R LEG SX; aa5 - Immunization history:: Adult Immunizations unknown. - Social history:: Smoking status: Patient denies any tobacco usage or history of. ROS: 12:20 MS/extremity: Positive for pain, swelling, tenderness, of the left ankle, Negative for cp decreased range of motion. 12:20 Eyes: Negative for injury, pain, redness, and discharge. cp 12:20 Constitutional: Negative for body aches, chills, fever. 12:20 Neck: Negative for pain with movement, pain at rest, stiffness. 12:20 Cardiovascular: Negative for chest pain. 12:20 Respiratory: Negative for cough, shortness of breath, wheezing. 12:20 Abdomen/GI: Negative for abdominal pain, nausea, vomiting, and diarrhea. 12:20 Back: Negative for pain at rest, pain with movement. 12:20 Neuro: Negative for altered mental status. 12:20 All other systems are negative. Exam: 12:25 Constitutional: The patient appears in no acute distress, alert, awake, non-toxic, well cp developed, well nourished. 12:25 Head/Face: Normocephalic, atraumatic. cp 12:25 Chest/axilla: Inspection: normal. 12:25 Cardiovascular: Rate: normal. 12:25 Respiratory: the patient does not display signs of respiratory distress, Respirations: normal, no use of accessory muscles, no retractions, labored breathing, is not present. 12:25 Musculoskeletal/extremity: Extremities: noted in the left ankle: pain, swelling, tenderness, There is no evidence of decreased ROM, deformity, ROM: limited passive range of motion due to pain, in the left ankle, Pulses: noted to be 2+ in the left dorsalis pedis artery. 12:25 Neuro: Orientation: is normal, Mentation: is normal, Motor: moves all fours, strength is normal, Sensation: is normal. Vital Signs: 12:07 BP 112 / 78; Pulse 68; Resp 18 S; Temp 98.0(TE); Pulse Ox 100% on R/A; aa5 Procedures: 13:45 Splinting: Splint applied to left ankle using walking boot. applied by nurse. Examined cp by me, post splint application: neurovascular intact, Patient tolerated well. MDM: 12:12 Patient medically screened. cp 12:30 Differential diagnosis: fracture, sprain, dislocation, foot fracture, Achilles injury. cp 13:20 Patient medically screened. cp 13:20 Data reviewed: vital signs, nurses notes, radiologic studies, plain films. cp 13:20 I considered the following discharge prescriptions or medication management in the emergency department Medications were administered in the Emergency Department. See MAR. Independent interpretation of the following test(s) in the Emergency Department X-Ray: My interpretation is left ankle negative for gross fracture. Care significantly affected by the following Social Determinants of Health: [place] speaking. Counseling: I had a detailed discussion with the patient and/or guardian regarding: the historical points, exam findings, and any diagnostic results supporting the discharge/admit diagnosis, radiology results, the need for outpatient follow up, a family practitioner, to return to the emergency department if symptoms worsen or persist or if there are any questions or concerns that arise at home. Response to treatment: the patient's symptoms have markedly improved after treatment, and as a result, I will discharge patient. 07/19 12:10 Order name: Ankle Left 3 View XRAY; Complete Time: 13:19 aa5 07/19 13:19 Interpretation: Report reviewed. cp 07/19 13:14 Order name: Walking boot; Complete Time: 14:46 cp Administered Medications: 14:15 Drug: Ibuprofen 800 mg Route: PO; iw 14:15 Drug: Tylenol 650 mg Route: PO; iw Disposition Summary: 07/19/22 13:20 Discharge Ordered Location: Home cp Problem: new cp Symptoms: have improved cp Condition: Stable cp Diagnosis - Sprain of ankle - left cp Followup: cp - With: Migue lAngel Rodrigues MD - When: 1 week - Reason: Recheck today's complaints Discharge Instructions: - Discharge Summary Sheet cp - Ankle Sprain cp - RICE Therapy for Routine Care of Injuries cp Forms: - Medication Reconciliation Form cp - Thank You Letter cp - Antibiotic Education cp - Prescription Opioid Use cp Prescriptions: - Naprosyn 500 mg Oral Tablet - take 1 tablet by ORAL route 2 times per day take with food; 20 tablet; Refills: cp 0, Product Selection Permitted Signatures: Dispatcher [employer] Laila Warren RN Maggy Lai RN RN aa5 Pascual Lopez PA PA cp Corrections: (The following items were deleted from the chart) 12:09 12:09 PMHx: psychiatric; aa5 aa5 07/20 14:53 07/19 15:30 Splinting: Splint applied to left ankle using walking boot. applied by cp nurse. Examined by me, post splint application: neurovascular intact, Patient tolerated well, cp
--- NOTE | 2022-07-19 13:20 | ER ---
Nurse's Notes [facility] Name: Sidra Hodges Age: 47 yrs Sex: Female : 1975 Arrival Date: 07/19/2022 Time: 12:06 Bed DIS4 Private MD: Diagnosis: Sprain of ankle-left Presentation: 07/19 12:07 Chief complaint: Patient states: "I fell because I was having an anxiety attack", pt aa5 c/o left ankle pain. EMS reports giving Tylenol 1000mg PO MANAGEMENT TRAINEE, 20G to R AC by EMS. Coronavirus screen: At this time, the client does not indicate any symptoms associated with coronavirus-19. Ebola Screen: Patient denies travel to an Ebola-affected area in the 21 days before illness onset. Initial Sepsis Screen: Does the patient meet any 2 criteria? No. Patient's initial sepsis screen is negative. Does the patient have a suspected source of infection? No. Patient's initial sepsis screen is negative. Risk Assessment: Do you want to hurt yourself or someone else? Patient reports no desire to harm self or others. Onset of symptoms was June 2022. 12:07 Method Of Arrival: EMS: [facility] aa5 12:07 Acuity: CARMITA 4 aa5 Historical: - Allergies: 12:09 CARBAMAZEPINE DERIVATIVES; aa5 12:09 Depakote; aa5 12:09 Tegretol; aa5 - PMHx: 12:09 ADD/ADHD; Anxiety; Bipolar disorder; Chronic pain; hemorrhoids; Seizures; aa5 - PSHx: 12:09 R LEG SX; aa5 - Immunization history:: Adult Immunizations unknown. - Social history:: Smoking status: Patient denies any tobacco usage or history of. Vital Signs: 12:07 BP 112 / 78; Pulse 68; Resp 18 S; Temp 98.0(TE); Pulse Ox 100% on R/A; aa5 ED Course: 12:06 Patient arrived in ED. am2 12:07 Pascual Lopez PA is PHCP. cp 12:07 Puneet Glover MD is Attending Physician. cp 12:07 Arm band placed on. aa5 12:09 Triage completed. aa5 12:52 Ankle Left 3 View XRAY In Process Unspecified. EDMS 13:20 Miguel Angel Rodrigues MD is Referral Physician. cp 14:02 Laila Foreman, RN is Primary Nurse. iw Administered Medications: 14:15 Drug: Ibuprofen 800 mg Route: PO; iw 14:15 Drug: Tylenol 650 mg Route: PO; iw Outcome: 13:20 Discharge ordered by . cp 15:53 Patient left the ED. ap3 Signatures: Dispatcher [employer] EDMS Laila Foreman RN RN iw Maggy Beasley RN RN aa5 Pascual Lopez, DAVID PA Kateryna Ellis Amanda, RN RN ap3 Corrections: (The following items were deleted from the chart) 12:09 12:09 PMHx: psychiatric; aa5 aa5
[2022-07-19] MEDS ORDERED: ACETAMINOPHEN 325 MG TABLET ONE (14:21)
[2022-07-19] MEDS ORDERED: IBUPROFEN 400 MG TAB ONE (14:22)
[2022-07-19 15:56] VITALS: BP 112/78; TEMP 98; O2SAT 100
== END 2022-07-19 15:53 | disposition home or self-care (01) ==
LOC: ER 12:02
DX: S93.402A Sprain of unspecified ligament of left ankle, initial encounter (principal)
CPT/HCPCS: 99283

== ENCOUNTER 2022-07-21 00:03 | Emergency (ER) | payer SELFPAY ==
--- OUTSIDE RECORDS SUMMARY | 2022-07-21 00:08 | XMS REPORT | Continuity of Care Document ---
:[address] [facility] t Address [address] [place] [address] Care Team Providers Name Role Phone Swapnil Fung Primary Care Physician [phone] Problems This patient has no known problems. [...] Procedure Date / Time Performed Performing Clinician [facility] e 32657 Ecg Routine Ecg W/least 12 2017-09-24 00:00:00 Lds W/i r Plan of Care Planned Activity Planned Date Details Comments Source Goal Plan of Care Note [code = 45397-4] Goal Plan of Care Note [code = 15577-8] Goal Plan of Care Note [code = 56345-0] Goal Plan of Care Note [code = 15127-3] Goal Plan of Care Note [code = 56043-9] Goal Plan of Care Note [code = 70926-0] Goal Plan of Care Note [code = 12131-3] Goal Plan of Care Note [code = 24831-7] Goal Plan of Care Note [code = 63423-8] Goal Plan of Care Note [code = 52794-0] Goal Plan of Care Note [code = 61998-5] Goal Plan of Care Note [code = 97833-9] Goal Plan of Care Note [code = 99698-6] Goal Plan of Care Note [code = 76110-9] Goal Plan of Care Note [code = 50400-1] Goal Plan of Care Note [code = 82847-8] Goal Plan of Care Note [code = 58083-6] Goal Plan of Care Note [code = 15684-2] Goal Plan of Care Note [code = 90707-9] Goal Plan of Care Note [code = 50059-6] Goal Plan of Care Note [code = 52181-9] Goal Plan of Care Note [code = 36242-8] Goal Plan of Care Note [code = 49880-3] Goal Plan of Care Note [code = 55097-8] Goal Plan of Care Note [code = 03719-7] Goal Plan of Care Note [code = 06854-0] Goal Plan of Care Note [code = 37722-5] Goal Plan of Care Note [code = 96935-8] Goal Plan of Care Note [code = 46201-4] Encounters Start End Encounter Admission Attending Care Care Encounter Source Date/Time Date/Time Type Type Clinicians Facility Department ID 2022-07-17 2022-07-17 Outpatient [facility] [id number] Henry 15:03:48 15:03:48 012Ivette Contreras 2022-07-17 2022-07-17 Outpatient [id number] 00:00:00 00:00:00 Visit [id number] Results Test Description Test Time Test Comments Results Result Comments Source SARS-CoV-2 (COVID-19) by RT-PCR (HIGH RISK) 2020-08-19 00:00 :00 Test Item Value Reference Range Interpretation Comme nts SARS-CoV-2 INTERPRETATION (test code = 40328) NEGATIVE SOURCE (test code = 21881) NOT SPECIFIED SARS-CoV-2 (COVID-19) by RT-PCR (HIGH RISK)2020-08-19 00:00:00 Test Item Value Reference Range Interpretation Comments SARS-CoV-2 INTERPRETATION (test NEGATIVE code = 63796) SOURCE (test code = 24450) NOT SPECIFIED PAP TEST, THINPREP, [id number] 00:00:00 Test Item Value Reference Range Interpretation Comments SOURCE: (test code = Cervical/Endocervical 8001) SLIDES: (test code = 1 8011) LMP: (test code = 8021) 06/2017 SPECIMEN ADEQUACY: (test (NOTE) code = 47660) INTERPRETATION: (test NILM/NO EPITH. code = 13140) ABNORMALITY;SEE BELOW SWIMMING POOL CLEANER: (test Malek code = 8101) [place], [place](ASCP) IAC LOCATION: (test code = (NOTE) 55795) CPT: (test code = 8140) (NOTE) PAP TEST, THINPREP, [id number] 00:00:00 Test Item Value Reference Range Interpretation Comments SOURCE: (test code = Cervical/Endocervical 8001) SLIDES: (test code = 1 8011) LMP: (test code = 8021) 06/2017 SPECIMEN ADEQUACY: (test (NOTE) code = 28585) INTERPRETATION: (test NILM/NO EPITH. code = 24752) ABNORMALITY;SEE BELOW SWIMMING POOL CLEANER: (test Malek code = 8101) [facility],[place](ASCP) IAC LOCATION: (test code = (NOTE) 05897) CPT: (test code = 8140) (NOTE) HPV HIGH RISK WITH GENOTYPE, [id number] 00:00:00 Test Item Value Reference Range Interpretation Comments HPV HIGH RISK INTERP (test code = NEGATIVE 64547) HPV 16 (test code = 87273) NEGATIVE HPV 18 (test code = 62833) NEGATIVE HPV, HR, OTHER GENOTYPES (test code NEGATIVE = 44723) HPV HIGH RISK WITH GENOTYPE, [id number] 00:00:00 Test Item Value Reference Range Interpretation Comments HPV HIGH RISK INTERP (test code = NEGATIVE 98098) HPV 16 (test code = 45997) NEGATIVE HPV 18 (test code = 71368) NEGATIVE HPV, HR, OTHER GENOTYPES (test code NEGATIVE = 38613) Valproic Acid [id number] 08:03:22 Test Item Value Reference Range Interpretation Comments Valproic Acid Level (test code 57.6 ug/mL(g) 50.0-100.0 = Valproic Acid Level) Hemoglobin [id number] 09:36:00 Test Item Value Reference Range Interpretation Comments Hemoglobin A1c (test code 5.0 % 4.8-5.9 No n Diabetic = Hemoglobin A1c) 4.8-5.9%Di abetic <7.0% CT Shoulder w/o Contrast [id number] 16:49:13Patient: BHUMIKA JONES Date/Time01/09/2019 16:14 CDTReason for [...] Adam FSigned (Electronic Signature): 01/09/2019 4:49 pmRPR [id number] 21:33:20 Test Item Value Reference Range Interpretation [...] Expiration Dt) XR Shoulder Complete 2+ Views [id number] 15:41:25Patient: BHUMIKA JONES Date/Time01/07/2019 15:25 CDTReason for [...] CSigned (Electronic Signature): 01/07/2019 3:41 pmThyroid Stimulating [id number] 03:07:04 Test Item Value Reference Range Interpretation Comments TSH (test code = TSH) 9.650 mIU/mL 0.270-4.200 H Lipid [id number] 03:07:03 Test Item Value Reference Range Interpretation Comments Cholesterol Total 199 mg/dL 0-200 RISK OF HE ART (test code = DISEASEPublishe d by Cholesterol Total) [employer] [place] Optimal Borderl ine [...] LDL/HDL Ratio=L DL Calc/HDL Chol HCG Qualitative [id number] 02:33:13 Test Item Value Reference Range Interpretation Comments HCG, Serum Qual (test code = HCG, Negative Serum Qual) Lot # (test code = Lot #) [id number] N Expiration Dt (test code = 2020-04-23 N Expiration Dt) Neg Control (test code = Neg Negative Control) Pos Control (test code = Pos Positive Control) Internal QC (test code = Internal Acceptable QC) Drugs of Abuse Urine [id number] 18:58:11 Test Item Value Reference Range Interpretation [...] (test code = Cannabinoid Screen Ur) Alcohol [id number] 18:47:34 Test Item Value Reference Range Interpretation Comments Ethanol Level (test <0.00 g/dL 0.00-0.01 Intoxica isabel 0.080 g/dL code = Ethanol or more Level) Ethanol Inst (test <0 N code = Ethanol Inst) Comprehensive Metabolic [id number] 18:47:33 Test Item Value Reference Range Interpretation [...] A/G 1.0 ratio N Ratio) Comprehensive Metabolic [id number] 18:47:33 Test Item Value Reference Range Interpretation [...] National Kidney Foundation, http://nkdep.ni h.gov Comprehensive Metabolic [id number] 18:47:33 Test Item Value Reference Range Interpretation [...] not provided, and t he patient is -Hsameka n, multiply by 1.2 12. If sex is not provided, and t he patient is fema le, multiply by 0.7 42. Results for pat ients <18 years of ag e have not been validated by [facility] MDRD study and should be [...] ag e have not been validated by [facility] MDRD study and should be interpreted wit h caution. eGFR R esult Interpretation: eGFR > or = 60 is in the Normal RangeeGF R < 60 may mean kid betzaida diseaseeGFR < 1 5 may mean kidney failure Rang es recommended by the National Kidney Foundation, http://nkdep.ni h.gov Complete Blood Count with [id number] 18:15:23 Test Item Value Reference Range Interpretation [...] code = IPF) 0 % N Automated [id number] 18:15:23 Test Item Value Reference Range Interpretation Comments Neutro Auto (test code = Neutro 42.1 % 36.0-70.0 Auto) Lymph Auto (test code = Lymph Auto) 40.0 % 12.0-44.0 Overton Auto (test code = Overton Auto) 12.2 % 0.0-11.0 H Eos, Auto (test code = Eos, Auto) 4.9 % 0.0-7.0 Basophil Auto (test code = Basophil 0.6 % 0.0-2.0 Auto) Neutro Absolute (test code = Neutro 2.2 x10 1.6-7.4 Absolute) Lymph Absolute (test code = Lymph 2.06 x10 .50-4.60 Absolute) Overton Absolute (test code = Overton .63 x10 .00-1.20 Absolute) Eos Absolute (test code = Eos 0.25 x10 0.00-0.74 Absolute) Baso Absolute (test code = Baso 0.03 x10 0.00-0.21 Absolute) IG [id number] 18:15:23 Test Item Value Reference Range Interpretation Comments IG (test code = IG) 0.2 % 0.0-5.0 IG Abs (test code = IG Abs) 0 x10 N VALPROIC [id number] 00:00:00 Test Item Value Reference Range Interpretation Comments VALPROIC ACID (test code = 3025) 69.8 UG/ML VALPROIC [id number] 00:00:00 Test Item Value Reference Range Interpretation Comments VALPROIC ACID (test code = 3025) 69.8 UG/ML URINE CULTURE, NO [id number] 00:00:00 Test Item Value Reference Range Interpretation Comments URINE CULTURE, NO SPECIMEN NUMBER: SENS (test code = 98715014 03459) URINE CULTURE, NO [id number] 00:00:00 Test Item Value Reference Range Interpretation Comments URINE CULTURE, NO SPECIMEN NUMBER: SENS (test code = [id number] 60831) [id number] 00:00:00 Test Item Value Reference Range Interpretation Comments TRANSFERRIN (test code = 4936) 269 MG/DL [id number] 00:00:00 Test Item Value Reference Range Interpretation Comments TRANSFERRIN (test code = 4936) 269 MG/DL FOLIC [id number] 00:00:00 Test Item Value Reference Range Interpretation Comments FOLIC ACID (test code = 2695) 5.4 UG/L FOLIC [id number] 00:00:00 Test Item Value Reference Range Interpretation Comments FOLIC ACID (test code = 2695) 5.4 UG/L IRON BINDING CAPACITY AND IRON AND % [id number] 00:00:00 Test Item Value Reference Range Interpretation Comments IRON, SERUM (test code = 2222) 42 UG/DL UNSATURATED IBC (test code = 80348) 279 UG/DL CALC TOTAL IBC (test code = 2077) 321 UG/DL CALC % IRON SAT (test code = 2079) 13 % IRON BINDING CAPACITY AND IRON AND % [id number] 00:00:00 Test Item Value Reference Range Interpretation Comments IRON, SERUM (test code = 2222) 42 UG/DL UNSATURATED IBC (test code = 65210) 279 UG/DL CALC TOTAL IBC (test code = 2077) 321 UG/DL CALC % IRON SAT (test code = 2079) 13 % [id number] 00:00:00 Test Item Value Reference Range Interpretation Comments FERRITIN (test code = 2075) 15 NG/ML [id number] 00:00:00 Test Item Value Reference Range Interpretation Comments FERRITIN (test code = 2075) 15 NG/ML CULTURE, URINE [ADDED]2018-06-12 00:00:00 Test Item Value Reference Range Interpretation Comments CULTURE, URINE (test SPECIMEN NUMBER: code = 76943) [id number] CULTURE, URINE [ADDED]2018-06-12 00:00:00 Test Item Value Reference Range Interpretation Comments CULTURE, URINE (test SPECIMEN NUMBER: code = 36878) [id number] COMPREHENSIVE METABOLIC [id number] 00:00:00 Test Item Value Reference Range Interpretation Comments GLUCOSE (test code = 2217) 86 MG/DL BUN (test code = 2208) 16 MG/DL CREATININE (test code = 2214) 0.45 MG/DL eGFR AMER. (test code 141 ML/MIN/1.73 = 55379) eGFR NON- AMER. (test 122 ML/MIN/1.73 code = 71871) CALC BUN/CREAT (test code = 36 RATIO [...] code = 2219) 17 U/L COMPREHENSIVE METABOLIC [id number] 00:00:00 Test Item Value Reference Range Interpretation Comments GLUCOSE (test code = 2217) 86 MG/DL BUN (test code = 2208) 16 MG/DL CREATININE (test code = 2214) 0.45 MG/DL eGFR AMER. (test code 141 ML/MIN/1.73 = 80493) eGFR NON- AMER. (test 122 ML/MIN/1.73 code = 83671) CALC BUN/CREAT (test code = 36 RATIO [...] (test code = 2219) 17 U/L VALPROIC [id number] 00:00:00 Test Item Value Reference Range Interpretation Comments VALPROIC ACID (test code = 3025) 100.9 UG/ML VALPROIC [id number] 00:00:00 Test Item Value Reference Range Interpretation Comments VALPROIC ACID (test code = 3025) 100.9 UG/ML CBC W/AUTO [id number] 00:00:00 Test Item Value Reference Range Interpretation [...] code = 1015) 184 K/UL CBC W/AUTO [id number] 00:00:00 Test Item Value Reference Range Interpretation [...] code = 1015) 184 K/UL CBC W/AUTO [id number] 00:00:00 Test Item Value Reference Range Interpretation [...] = 1015) 184 K/UL PAP TEST, THINPREP, [id number] 00:00:00 Test Item Value Reference Range Interpretation Comments SOURCE: (test code = Cervical/Endocervical 8001) SLIDES: (test code = 1 8011) LMP: (test code = 03/2017 8021) SPECIMEN ADEQUACY: (NOTE) (test code = 87062) INTERPRETATION: (test NO EPITHELIAL code = 29304) ABNORMALITY SEE BELOW SWIMMING POOL CLEANER: Santi Elizondo, (test code = 8101) CT(ASCP)IAC LOCATION: (test code (NOTE) = 34445) CPT: (test code = (NOTE) 8140) PAP TEST, THINPREP, [id number] 00:00:00 Test Item Value Reference Range Interpretation Comments SOURCE: (test code = Cervical/Endocervical 8001) SLIDES: (test code = 1 8011) LMP: (test code = 03/2017 8021) SPECIMEN ADEQUACY: (NOTE) (test code = 44465) INTERPRETATION: (test NO EPITHELIAL code = 78021) ABNORMALITY SEE BELOW SWIMMING POOL CLEANER: Santi Elizondo, (test code = 8101) CT(ASCP)IAC LOCATION: (test code (NOTE) = 86476) CPT: (test code = (NOTE) 8140) HPV HIGH RISK WITH GENOTYPE, [id number] 00:00:00 Test Item Value Reference Range Interpretation Comments HPV HIGH RISK INTERP (test code = NEGATIVE 27103) HPV 16 (test code = 52230) NEGATIVE HPV 18 (test code = 09910) NEGATIVE HPV, HR, OTHER GENOTYPES (test code NEGATIVE = 46210) HPV HIGH RISK WITH GENOTYPE, [id number] 00:00:00 Test Item Value Reference Range Interpretation Comments HPV HIGH RISK INTERP (test code = NEGATIVE 19067) HPV 16 (test code = 99749) NEGATIVE HPV 18 (test code = 89971) NEGATIVE HPV, HR, OTHER GENOTYPES (test code NEGATIVE = 30985) GC AND CHLAMYDIA AMPLIFIED, [id number] 00:00:00 Test Item Value Reference Range Interpretation Comments GONORRHEA, TMA (test code = 91268) NEGATIVE CHLAMYDIA, TMA (test code = 95703) NEGATIVE HIV AB/AG COMBO RFLX [id number] 00:00:00 Test Item Value Reference Range Interpretation Comments HIV 1/2 4TH GEN, RFLX CONF (test NON-REACTIVE code = 3514) GC AND CHLAMYDIA AMPLIFIED, [id number] 00:00:00 Test Item Value Reference Range Interpretation Comments GONORRHEA, TMA (test code = 51817) NEGATIVE CHLAMYDIA, TMA (test code = 86483) NEGATIVE HIV AB/AG COMBO RFLX [id number] 00:00:00 Test Item Value Reference Range Interpretation Comments HIV 1/2 4TH GEN, RFLX CONF (test NON-REACTIVE code = 3514) HEMOGLOBIN [id number] 00:00:00 Test Item Value Reference Range Interpretation Comments HEMOGLOBIN A1c (test code = 19213) 5.2 % HEMOGLOBIN [id number] 00:00:00 Test Item Value Reference Range Interpretation Comments HEMOGLOBIN A1c (test code = 03353) 5.2 % HEMOGLOBIN [id number] 00:00:00 Test Item Value Reference Range Interpretation Comments HEMOGLOBIN A1c (test code = 11150) 5.2 % [id number] 00:00:00 Test Item Value Reference Range Interpretation Comments TSH (test code = 2821) 2.020 UIU/ML [id number] 00:00:00 Test Item Value Reference Range Interpretation Comments TSH (test code = 2821) 2.020 UIU/ML [id number] 00:00:00 Test Item Value Reference Range Interpretation Comments TSH (test code = 2821) 2.020 UIU/ML COMPREHENSIVE METABOLIC [id number] 00:00:00 Test Item Value Reference Range Interpretation Comments GLUCOSE (test code = 2217) 90 MG/DL BUN (test code = 2208) 21 MG/DL CREATININE (test code = 2214) 0.42 MG/DL eGFR AMER. (test code 145 ML/MIN/1.73 = 14856) eGFR NON- AMER. (test 126 ML/MIN/1.73 code = 73865) CALC BUN/CREAT (test code = 50 RATIO [...] code = 2219) <5 U/L COMPREHENSIVE METABOLIC [id number] 00:00:00 Test Item Value Reference Range Interpretation Comments GLUCOSE (test code = 2217) 90 MG/DL BUN (test code = 2208) 21 MG/DL CREATININE (test code = 2214) 0.42 MG/DL eGFR AMER. (test code 145 ML/MIN/1.73 = 27539) eGFR NON- AMER. (test 126 ML/MIN/1.73 code = 50134) CALC BUN/CREAT (test code = 50 RATIO [...] (test code = 2219) <5 U/L LIPID [id number] 00:00:00 Test Item Value Reference Range Interpretation Comments CHOLESTEROL (test code = 2210) 186 MG/DL TRIGLYCERIDES (test code = 2232) 131 MG/DL HDL CHOLESTEROL (test code = 2220) 67 MG/DL CALC LDL CHOL (test code = 2237) 93 MG/DL RISK RATIO LDL/HDL (test code = 1.39 RATIO 2238) LIPID [id number] 00:00:00 Test Item Value Reference Range Interpretation Comments CHOLESTEROL (test code = 2210) 186 MG/DL TRIGLYCERIDES (test code = 2232) 131 MG/DL HDL CHOLESTEROL (test code = 2220) 67 MG/DL CALC LDL CHOL (test code = 2237) 93 MG/DL RISK RATIO LDL/HDL (test code = 1.39 RATIO 2238) CBC W/AUTO [id number] 00:00:00 Test Item Value Reference Range Interpretation [...] code = 1015) 152 K/UL CBC W/AUTO [id number] 00:00:00 Test Item Value Reference Range Interpretation [...] code = 1015) 152 K/UL CBC W/AUTO [id number] 00:00:00 Test Item Value Reference Range Interpretation [...]
--- NOTE | 2022-07-21 00:16 | EDPHYS ---
Physician Documentation [facility] Name: Sidra Hodges Age: 47 yrs Sex: Female : 1975 Arrival Date: 07/21/2022 Time: 00:06 Bed 14 Private MD: ED Physician Ramiro Piña HPI: 07/21 00:14 This 47 yrs old Female presents to ER via Unassigned with complaints of Leg kb Pain. 00:14 The patient presents with an injury, pain, swelling, tenderness. The complaints affect kb the left ankle. Onset: The symptoms/episode began/occurred yesterday. Context: The patient can fully bear weight on the affected extremity. the patient is able to ambulate. Associated signs and symptoms: Pertinent positives: swelling. Modifying factors: The symptoms are alleviated by nothing, the symptoms are aggravated by weight bearing, movement. Severity of symptoms: At their worst the symptoms were moderate, in the emergency department the symptoms are unchanged. The patient has not experienced similar symptoms in the past. The patient has been recently seen at the [facility] Emergency Department, yesterday, for similar complaints. Pt reports pain to left ankle s/p fracture [address] days [address] Boot in place. Historical: - Allergies: 00:19 CARBAMAZEPINE DERIVATIVES; aa9 00:19 Depakote; aa9 00:19 Tegretol; aa9 - Home Meds: 00:19 Unable to obtain [Active]; aa9 - PMHx: 00:19 ADD/ADHD; Anxiety; Bipolar disorder; Chronic pain; hemorrhoids; Seizures; aa9 - PSHx: 00:19 R LEG SX; aa9 - Immunization history:: Client reports having NOT received the Covid vaccine. - Social history:: Smoking status: Patient denies any tobacco usage or history of. ROS: 00:13 Constitutional: Negative for fever, chills, and weight loss. kb 00:13 MS/extremity: Positive for injury or acute deformity, pain, swelling, tenderness, of the anterior aspect of left ankle. 00:13 All other systems are negative. Exam: 00:13 Constitutional: This is a well developed, well nourished patient who is awake, alert, kb and in no acute distress. Head/Face: Normocephalic, atraumatic. ENT: Moist Mucous membranes Cardiovascular: Regular rate and rhythm with a normal S1 and S2. No gallops, murmurs, or rubs. No pulse deficits. Respiratory: Respirations even and unlabored. No increased work of breathing. Talking in full sentences Skin: Warm, dry with normal turgor. Normal color. Neuro: Awake and alert, GCS 15, oriented to person, place, time, and situation. Moves all extremities. Normal gait. Psych: Awake, alert, with orientation to person, place and time. Behavior, mood, and affect are within normal limits. 00:13 Musculoskeletal/extremity: Extremities: grossly normal except: noted in the anterior aspect of left ankle: decreased ROM, pain, swelling, tenderness, ROM: limited active range of motion due to pain, Circulation is intact in all extremities. Sensation intact. Weight bearing: able to fully bear weight. Vital Signs: 01:09 BP 129 / 78; Pulse 75; Resp 20; Temp 98.2; Pulse Ox 100% ; Pain 5/10; ke1 01:10 Pain 0/10; ke1 MDM: 00:10 Patient medically screened. kb 00:12 Differential diagnosis: closed fracture, contusion, sprain. Data reviewed: vital signs, kb nurses notes. Historians other than the Patient: EMS: [facility]. External Records Reviewed: ankle x-ray from yesterday reviewed - no acute fracture. Care significantly affected by the following Social Determinants of Health: Poor access to transportation. Counseling: I had a detailed discussion with the patient and/or guardian regarding: the historical points, exam findings, and any diagnostic results supporting the discharge/admit diagnosis, the need for outpatient follow up, a orthopedic surgeon, to return to the emergency department if symptoms worsen or persist or if there are any questions or concerns that arise at home. Administered Medications: 00:39 Drug: Tylenol 1000 mg Route: PO; ke1 01:10 Follow up: Pain 0/10 Adult; Response: Pain is decreased ke1 Disposition: 03:51 Co-signature as Attending Physician, Ramiro Piña DO I reviewed the patient's care ms3 provided by the Advanced Practice Provider and agree with the diagnosis and treatment plan. Disposition Summary: 07/21/22 00:15 Discharge Ordered Location: Home Condition: Stable kb Diagnosis - Sprain of ankle kb Followup: kb - With: Emergency Department - When: As needed - Reason: Worsening of condition Followup: kb - With: Private Physician - When: 2 - 3 days - Reason: Recheck today's complaints, Continuance of care, Re-evaluation by your physician Discharge Instructions: - Discharge Summary Sheet kb - Ankle Sprain, Glwh-jw-Ohzt kb Forms: - Medication Reconciliation Form kb - Thank You Letter kb - Antibiotic Education kb - Prescription Opioid Use kb Signatures: Cristina Sewell, GUERDA-C GUERDA-Ramiro Stiles DO DO ms3 Jayy Vásquez, RN RN ke1 Lyric Ramirez RN RN aa9
[2022-07-21] MEDS ORDERED: ACETAMINOPHEN 500 MG TAB ONE (00:34)
--- NOTE | 2022-07-21 01:11 | ER ---
Nurse's Notes [facility] Name: Sidra Hodges Age: 47 yrs Sex: Female : 1975 Arrival Date: 07/21/2022 Time: 00:06 Bed 14 Private MD: Diagnosis: Sprain of ankle Presentation: 07/21 00:16 Chief complaint: Patient states: I want a passport, I need help with my passport and my aa9 left leg. Coronavirus screen: Vaccine status: Patient reports being unvaccinated. Ebola Screen: No symptoms or risks identified at this time. Initial Sepsis Screen:. Risk Assessment: Do you want to hurt yourself or someone else? Patient reports no desire to harm self or others. Onset of symptoms was July 21, 2022 at 00:17. 00:16 Method Of Arrival: EMS: [facility] aa9 00:16 Acuity: CARMITA 4 aa9 01:09 Initial Sepsis Screen: Does the patient meet any 2 criteria? No. Patient's initial ke1 sepsis screen is negative. Does the patient have a suspected source of infection? No. Patient's initial sepsis screen is negative. Triage Assessment: 00:17 General: Appears in no apparent distress. unkempt, Behavior is calm, quiet. Pain: aa9 Complains of pain in left lower leg. Neuro: Level of Consciousness is awake, alert, Oriented to person. Cardiovascular: Patient's skin is warm and dry. Respiratory: Airway is patent Respiratory effort is even, unlabored. GI: No signs and/or symptoms were reported involving the gastrointestinal system. : No signs and/or symptoms were reported regarding the genitourinary system. Derm: Skin is intact, is healthy with good turgor. Musculoskeletal: boot on the left lower leg. 00:20 General: pt non compliant, unable to take vital signs, pt refused. aa9 Historical: - Allergies: 00:19 CARBAMAZEPINE DERIVATIVES; aa9 00:19 Depakote; aa9 00:19 Tegretol; aa9 - Home Meds: 00:19 Unable to obtain [Active]; aa9 - PMHx: 00:19 ADD/ADHD; Anxiety; Bipolar disorder; Chronic pain; hemorrhoids; Seizures; aa9 - PSHx: 00:19 R LEG SX; aa9 - Immunization history:: Client reports having NOT received the Covid vaccine. - Social history:: Smoking status: Patient denies any tobacco usage or history of. Screenin:19 Abuse screen: Denies threats or abuse. Denies injuries from another. aa9 01:08 [facility] ED Fall Risk Assessment (Adult) History of falling in the last 3 months, ke1 including since admission No falls in past 3 months (0 pts) Confusion or Disorientation No (0 pts) Intoxicated or Sedated No (0 pts) Impaired Gait No (0 pts) Mobility Assist Device Used No (0 pt) Altered Elimination No (0 pt) Score/Fall Risk Level 0 - 2 = Low Risk. Nutritional screening: No deficits noted. Tuberculosis screening: No symptoms or risk factors identified. Vital Signs: 01:09 BP 129 / 78; Pulse 75; Resp 20; Temp 98.2; Pulse Ox 100% ; Pain 5/10; ke1 01:10 Pain 0/10; ke1 ED Course: 00:06 Patient arrived in ED. 00:10 [facility] Sewell [facility]-C [facility] elpidio 00:10 Ramiro Piña DO is Attending Physician. kb 00:17 Jayy Vásquez, GERONIMO is Primary Nurse. ke1 00:17 Triage completed. aa9 00:19 Arm band placed on. aa9 01:07 No provider procedures requiring assistance completed. Patient did not have IV access ke1 during this emergency room visit. 01:09 Bed in low position. ke1 Administered Medications: 00:39 Drug: Tylenol 1000 mg Route: PO; ke1 01:10 Follow up: Pain 0/10 Adult; Response: Pain is decreased ke1 Medication: 01:08 VIS not applicable for this client. ke1 Outcome: 00:15 Discharge ordered by . kb 01:07 Discharged to home via wheelchair. ke1 01:07 Condition: good 01:07 Discharge instructions given to patient. 01:10 Patient left the ED. ke1 Signatures: Cristina Sewell FNP-C FNP-Ese Lrakin Jayy Vásquez, GERONIMO RN ke1 Lyric Ramirez RN RN aa9
[2022-07-21 01:35] VITALS: BP 129/78; TEMP 98.2; O2SAT 100
== END 2022-07-21 01:10 | disposition home or self-care (01) ==
LOC: ER 00:03
DX: S93.402A Sprain of unspecified ligament of left ankle, initial encounter (principal)
CPT/HCPCS: 99283

== ENCOUNTER 2022-07-27 13:51 | Emergency (ER) | payer SELFPAY ==
--- OUTSIDE RECORDS SUMMARY | 2022-07-27 13:54 | XMS REPORT | Continuity of Care Document ---
:1975 Author Organization [facility] t Address [address] [place] [address] Care Team Providers Name Role Phone Swapnil Fung Primary Care Physician [phone] Problems This patient has no known problems. [...] Procedure Date / Time Performed Performing Clinician [facility] e [address] Ecg Routine Ecg W/least 12 2017-09-24 00:00:00 Lds W/i r Plan of Care Planned Activity Planned Date Details Comments Source Goal Plan of Care Note [code = 91001-4] Goal Plan of Care Note [code = 36736-5] Goal Plan of Care Note [code = 86021-3] Goal Plan of Care Note [code = 64157-6] Goal Plan of Care Note [code = 91103-0] Goal Plan of Care Note [code = 99339-5] Goal Plan of Care Note [code = 28414-3] Goal Plan of Care Note [code = 43750-0] Goal Plan of Care Note [code = 97984-6] Goal Plan of Care Note [code = 20356-1] Goal Plan of Care Note [code = 53552-4] Goal Plan of Care Note [code = 29420-4] Goal Plan of Care Note [code = 33014-1] Goal Plan of Care Note [code = 47575-3] Goal Plan of Care Note [code = 28239-5] Goal Plan of Care Note [code = 58593-4] Goal Plan of Care Note [code = 22416-3] Goal Plan of Care Note [code = 36899-4] Goal Plan of Care Note [code = 77900-3] Goal Plan of Care Note [code = 50253-3] Goal Plan of Care Note [code = 41937-1] Goal Plan of Care Note [code = 86463-2] Goal Plan of Care Note [code = 80426-6] Goal Plan of Care Note [code = 05543-5] Goal Plan of Care Note [code = 69521-9] Goal Plan of Care Note [code = 38861-9] Goal Plan of Care Note [code = 18535-6] Goal Plan of Care Note [code = 29928-1] Goal Plan of Care Note [code = 85242-8] Encounters Start End Encounter Admission Attending Care Care Encounter Source Date/Time Date/Time Type Type Clinicians Facility Department ID 2022-07-17 2022-07-17 Outpatient [facility] [id number] Henry 15:03:48 15:03:48 012Ivette Contreras 2022-07-17 2022-07-17 Outpatient [id number] 00:00:00 00:00:00 Visit [id number] Results Test Description Test Time Test Comments Results Result Comments Source SARS-CoV-2 (COVID-19) by RT-PCR (HIGH RISK) 2020-08-19 00:00 :00 Test Item Value Reference Range Interpretation Comme nts SARS-CoV-2 INTERPRETATION (test code = 79024) NEGATIVE SOURCE (test code = 72960) NOT SPECIFIED SARS-CoV-2 (COVID-19) by RT-PCR (HIGH RISK)2020-08-19 00:00:00 Test Item Value Reference Range Interpretation Comments SARS-CoV-2 INTERPRETATION (test NEGATIVE code = 87672) SOURCE (test code = 23209) NOT SPECIFIED PAP TEST, THINPREP, [id number] 00:00:00 Test Item Value Reference Range Interpretation Comments SOURCE: (test code = Cervical/Endocervical 8001) SLIDES: (test code = 1 8011) LMP: (test code = 8021) 06/2017 SPECIMEN ADEQUACY: (test (NOTE) code = 65538) INTERPRETATION: (test NILM/NO EPITH. code = 05390) ABNORMALITY;SEE BELOW FINANCIAL COUNSELOR: (test Malek code = 8101) [place], [place](ASCP) IAC LOCATION: (test code = (NOTE) 11863) CPT: (test code = 8140) (NOTE) PAP TEST, THINPREP, [id number] 00:00:00 Test Item Value Reference Range Interpretation Comments SOURCE: (test code = Cervical/Endocervical 8001) SLIDES: (test code = 1 8011) LMP: (test code = 8021) 06/2017 SPECIMEN ADEQUACY: (test (NOTE) code = 52539) INTERPRETATION: (test NILM/NO EPITH. code = 72472) ABNORMALITY;SEE BELOW FINANCIAL COUNSELOR: (test Malek code = 8101) [facility],[place](ASCP) IAC LOCATION: (test code = (NOTE) 13883) CPT: (test code = 8140) (NOTE) HPV HIGH RISK WITH GENOTYPE, [id number] 00:00:00 Test Item Value Reference Range Interpretation Comments HPV HIGH RISK INTERP (test code = NEGATIVE 08428) HPV 16 (test code = 15554) NEGATIVE HPV 18 (test code = 30525) NEGATIVE HPV, HR, OTHER GENOTYPES (test code NEGATIVE = 65459) HPV HIGH RISK WITH GENOTYPE, [id number] 00:00:00 Test Item Value Reference Range Interpretation Comments HPV HIGH RISK INTERP (test code = NEGATIVE 14880) HPV 16 (test code = 38209) NEGATIVE HPV 18 (test code = 97121) NEGATIVE HPV, HR, OTHER GENOTYPES (test code NEGATIVE = 61726) Valproic Acid [id number] 08:03:22 Test Item Value Reference Range Interpretation Comments Valproic Acid Level (test code 57.6 ug/mL(g) 50.0-100.0 = Valproic Acid Level) Hemoglobin [id number] 09:36:00 Test Item Value Reference Range Interpretation Comments Hemoglobin A1c (test code 5.0 % 4.8-5.9 No n Diabetic = Hemoglobin A1c) 4.8-5.9%Di abetic <7.0% CT Shoulder w/o Contrast [id number] 16:49:13Patient: BHUMIKA JONES Date/Time01/09/2019 16:14 CDTReason for [...] Adam FSigned (Electronic Signature): 01/09/2019 4:49 pmRPR [id number] 21:33:20 Test Item Value Reference Range Interpretation [...] Expiration Dt) XR Shoulder Complete 2+ Views [id number] 15:41:25Patient: BHUMIKA JONES Date/Time01/07/2019 15:25 CDTReason for [...] CSigned (Electronic Signature): 01/07/2019 3:41 pmThyroid Stimulating [id number] 03:07:04 Test Item Value Reference Range Interpretation Comments TSH (test code = TSH) 9.650 mIU/mL 0.270-4.200 H Lipid [id number] 03:07:03 Test Item Value Reference Range Interpretation [...] LDL/HDL Ratio=L DL Calc/HDL Chol HCG Qualitative [id number] 02:33:13 Test Item Value Reference Range Interpretation Comments HCG, Serum Qual (test code = HCG, Negative Serum Qual) Lot # (test code = Lot #) [id number] N Expiration Dt (test code = 2020-04-23 N Expiration Dt) Neg Control (test code = Neg Negative Control) Pos Control (test code = Pos Positive Control) Internal QC (test code = Internal Acceptable QC) Drugs of Abuse Urine [id number] 18:58:11 Test Item Value Reference Range Interpretation [...] (test code = Cannabinoid Screen Ur) Alcohol [id number] 18:47:34 Test Item Value Reference Range Interpretation Comments Ethanol Level (test <0.00 g/dL 0.00-0.01 Intoxica isabel 0.080 g/dL code = Ethanol or more Level) Ethanol Inst (test <0 N code = Ethanol Inst) Comprehensive Metabolic [id number] 18:47:33 Test Item Value Reference Range Interpretation [...] A/G 1.0 ratio N Ratio) Comprehensive Metabolic [id number] 18:47:33 Test Item Value Reference Range Interpretation [...] National Kid[employer] Foundation, http://nkdep.ni h.gov Comprehensive Metabolic [id number] 18:47:33 Test Item Value Reference Range Interpretation [...] ag e have not been validated by [facility] MDRD study and should be interpreted [...] ag e have not been validated by [facility] MDRD study and should be interpreted wit h caution. eGFR R esult Interpretation: eGFR > or = 60 is in the Normal RangeeGF R < 60 may mean kid betzaida diseaseeGFR < 1 5 may mean kidney failure Rang es recommended by the National Kidney Foundation, http://nkdep.ni h.gov Complete Blood Count with [id number] 18:15:23 Test Item Value Reference Range Interpretation [...] code = IPF) 0 % N Automated [id number] 18:15:23 Test Item Value Reference Range Interpretation Comments Neutro Auto (test code = Neutro 42.1 % 36.0-70.0 Auto) Lymph Auto (test code = Lymph Auto) 40.0 % 12.0-44.0 [place] Auto (test code = [place] Auto) 12.2 % 0.0-11.0 H Eos, Auto (test code = Eos, Auto) 4.9 % 0.0-7.0 Basophil Auto (test code = Basophil 0.6 % 0.0-2.0 Auto) Neutro Absolute (test code = Neutro 2.2 x10 1.6-7.4 Absolute) Lymph Absolute (test code = Lymph 2.06 x10 .50-4.60 Absolute) [place] Absolute (test code = [place] .63 x10 .00-1.20 Absolute) Eos Absolute (test code = Eos 0.25 x10 0.00-0.74 Absolute) Baso Absolute (test code = Baso 0.03 x10 0.00-0.21 Absolute) IG [id number] 18:15:23 Test Item Value Reference Range Interpretation Comments IG (test code = IG) 0.2 % 0.0-5.0 IG Abs (test code = IG Abs) 0 x10 N VALPROIC [id number] 00:00:00 Test Item Value Reference Range Interpretation Comments VALPROIC ACID (test code = 3025) 69.8 UG/ML VALPROIC [id number] 00:00:00 Test Item Value Reference Range Interpretation Comments VALPROIC ACID (test code = 3025) 69.8 UG/ML URINE CULTURE, NO [id number] 00:00:00 Test Item Value Reference Range Interpretation Comments URINE CULTURE, NO SPECIMEN NUMBER: SENS (test code = 39269980 38084) URINE CULTURE, NO [id number] 00:00:00 Test Item Value Reference Range Interpretation Comments URINE CULTURE, NO SPECIMEN NUMBER: SENS (test code = 11743529 08214) [id number] 00:00:00 Test Item Value Reference Range Interpretation Comments TRANSFERRIN (test code = 4936) 269 MG/DL [id number] 00:00:00 Test Item Value Reference Range Interpretation Comments TRANSFERRIN (test code = 4936) 269 MG/DL FOLIC [id number] 00:00:00 Test Item Value Reference Range Interpretation Comments FOLIC ACID (test code = 2695) 5.4 UG/L FOLIC [id number] 00:00:00 Test Item Value Reference Range Interpretation Comments FOLIC ACID (test code = 2695) 5.4 UG/L IRON BINDING CAPACITY AND IRON AND % [id number] 00:00:00 Test Item Value Reference Range Interpretation Comments IRON, SERUM (test code = 2222) 42 UG/DL UNSATURATED IBC (test code = 24286) 279 UG/DL CALC TOTAL IBC (test code = 2077) 321 UG/DL CALC % IRON SAT (test code = 2079) 13 % IRON BINDING CAPACITY AND IRON AND % [id number] 00:00:00 Test Item Value Reference Range Interpretation Comments IRON, SERUM (test code = 2222) 42 UG/DL UNSATURATED IBC (test code = 22367) 279 UG/DL CALC TOTAL IBC (test code = 2077) 321 UG/DL CALC % IRON SAT (test code = 2079) 13 % [id number] 00:00:00 Test Item Value Reference Range Interpretation Comments FERRITIN (test code = 2075) 15 NG/ML [id number] 00:00:00 Test Item Value Reference Range Interpretation Comments FERRITIN (test code = 2075) 15 NG/ML CULTURE, URINE [ADDED]2018-06-12 00:00:00 Test Item Value Reference Range Interpretation Comments CULTURE, URINE (test SPECIMEN NUMBER: code = 73452) [id number] CULTURE, URINE [ADDED]2018-06-12 00:00:00 Test Item Value Reference Range Interpretation Comments CULTURE, URINE (test SPECIMEN NUMBER: code = 22326) [id number] COMPREHENSIVE METABOLIC [id number] 00:00:00 Test Item Value Reference Range Interpretation Comments GLUCOSE (test code = 2217) 86 MG/DL BUN (test code = 2208) 16 MG/DL CREATININE (test code = 2214) 0.45 MG/DL eGFR AMER. (test code 141 ML/MIN/1.73 = 84637) eGFR NON- AMER. (test 122 ML/MIN/1.73 code = 46515) CALC BUN/CREAT (test code = 36 RATIO [...] code = 2219) 17 U/L COMPREHENSIVE METABOLIC [id number] 00:00:00 Test Item Value Reference Range Interpretation Comments GLUCOSE (test code = 2217) 86 MG/DL BUN (test code = 2208) 16 MG/DL CREATININE (test code = 2214) 0.45 MG/DL eGFR AMER. (test code 141 ML/MIN/1.73 = 31037) eGFR NON- AMER. (test 122 ML/MIN/1.73 code = 33144) CALC BUN/CREAT (test code = 36 RATIO [...] (test code = 2219) 17 U/L VALPROIC [id number] 00:00:00 Test Item Value Reference Range Interpretation Comments VALPROIC ACID (test code = 3025) 100.9 UG/ML VALPROIC [id number] 00:00:00 Test Item Value Reference Range Interpretation Comments VALPROIC ACID (test code = 3025) 100.9 UG/ML CBC W/AUTO [id number] 00:00:00 Test Item Value Reference Range Interpretation [...] code = 1015) 184 K/UL CBC W/AUTO [id number] 00:00:00 Test Item Value Reference Range Interpretation [...] code = 1015) 184 K/UL CBC W/AUTO [id number] 00:00:00 Test Item Value Reference Range Interpretation [...] = 1015) 184 K/UL PAP TEST, THINPREP, [id number] 00:00:00 Test Item Value Reference Range Interpretation Comments SOURCE: (test code = Cervical/Endocervical 8001) SLIDES: (test code = 1 8011) LMP: (test code = 03/2017 8021) SPECIMEN ADEQUACY: (NOTE) (test code = 52420) INTERPRETATION: (test NO EPITHELIAL code = 32458) ABNORMALITY SEE BELOW FINANCIAL COUNSELOR: Santi Elizondo, (test code = 8101) CT(ASCP)IAC LOCATION: (test code (NOTE) = 38889) CPT: (test code = (NOTE) 8140) PAP TEST, THINPREP, [id number] 00:00:00 Test Item Value Reference Range Interpretation Comments SOURCE: (test code = Cervical/Endocervical 8001) SLIDES: (test code = 1 8011) LMP: (test code = 03/2017 8021) SPECIMEN ADEQUACY: (NOTE) (test code = 68071) INTERPRETATION: (test NO EPITHELIAL code = 44524) ABNORMALITY SEE BELOW FINANCIAL COUNSELOR: Santi Elizondo, (test code = 8101) CT(ASCP)IAC LOCATION: (test code (NOTE) = 27551) CPT: (test code = (NOTE) 8140) HPV HIGH RISK WITH GENOTYPE, [id number] 00:00:00 Test Item Value Reference Range Interpretation Comments HPV HIGH RISK INTERP (test code = NEGATIVE 04641) HPV 16 (test code = 65091) NEGATIVE HPV 18 (test code = 34152) NEGATIVE HPV, HR, OTHER GENOTYPES (test code NEGATIVE = 79241) HPV HIGH RISK WITH GENOTYPE, [id number] 00:00:00 Test Item Value Reference Range Interpretation Comments HPV HIGH RISK INTERP (test code = NEGATIVE 10014) HPV 16 (test code = 01265) NEGATIVE HPV 18 (test code = 81769) NEGATIVE HPV, HR, OTHER GENOTYPES (test code NEGATIVE = 82900) GC AND CHLAMYDIA AMPLIFIED, [id number] 00:00:00 Test Item Value Reference Range Interpretation Comments GONORRHEA, TMA (test code = 66541) NEGATIVE CHLAMYDIA, TMA (test code = 35780) NEGATIVE HIV AB/AG COMBO RFLX [id number] 00:00:00 Test Item Value Reference Range Interpretation Comments HIV 1/2 4TH GEN, RFLX CONF (test NON-REACTIVE code = 3514) GC AND CHLAMYDIA AMPLIFIED, [id number] 00:00:00 Test Item Value Reference Range Interpretation Comments GONORRHEA, TMA (test code = 65919) NEGATIVE CHLAMYDIA, TMA (test code = 99683) NEGATIVE HIV AB/AG COMBO RFLX [id number] 00:00:00 Test Item Value Reference Range Interpretation Comments HIV 1/2 4TH GEN, RFLX CONF (test NON-REACTIVE code = 3514) HEMOGLOBIN [id number] 00:00:00 Test Item Value Reference Range Interpretation Comments HEMOGLOBIN A1c (test code = 68074) 5.2 % HEMOGLOBIN [id number] 00:00:00 Test Item Value Reference Range Interpretation Comments HEMOGLOBIN A1c (test code = 46408) 5.2 % HEMOGLOBIN [id number] 00:00:00 Test Item Value Reference Range Interpretation Comments HEMOGLOBIN A1c (test code = 34127) 5.2 % [id number] 00:00:00 Test Item Value Reference Range Interpretation Comments TSH (test code = 2821) 2.020 UIU/ML [id number] 00:00:00 Test Item Value Reference Range Interpretation Comments TSH (test code = 2821) 2.020 UIU/ML [id number] 00:00:00 Test Item Value Reference Range Interpretation Comments TSH (test code = 2821) 2.020 UIU/ML COMPREHENSIVE METABOLIC [id number] 00:00:00 Test Item Value Reference Range Interpretation Comments GLUCOSE (test code = 2217) 90 MG/DL BUN (test code = 2208) 21 MG/DL CREATININE (test code = 2214) 0.42 MG/DL eGFR AMER. (test code 145 ML/MIN/1.73 = 08128) eGFR NON- AMER. (test 126 ML/MIN/1.73 code = 47536) CALC BUN/CREAT (test code = 50 RATIO [...] code = 2219) <5 U/L COMPREHENSIVE METABOLIC [id number] 00:00:00 Test Item Value Reference Range Interpretation Comments GLUCOSE (test code = 2217) 90 MG/DL BUN (test code = 2208) 21 MG/DL CREATININE (test code = 2214) 0.42 MG/DL eGFR AMER. (test code 145 ML/MIN/1.73 = 31919) eGFR NON- AMER. (test 126 ML/MIN/1.73 code = 94205) CALC BUN/CREAT (test code = 50 RATIO [...] (test code = 2219) <5 U/L LIPID [id number] 00:00:00 Test Item Value Reference Range Interpretation Comments CHOLESTEROL (test code = 2210) 186 MG/DL TRIGLYCERIDES (test code = 2232) 131 MG/DL HDL CHOLESTEROL (test code = 2220) 67 MG/DL CALC LDL CHOL (test code = 2237) 93 MG/DL RISK RATIO LDL/HDL (test code = 1.39 RATIO 2238) LIPID [id number] 00:00:00 Test Item Value Reference Range Interpretation Comments CHOLESTEROL (test code = 2210) 186 MG/DL TRIGLYCERIDES (test code = 2232) 131 MG/DL HDL CHOLESTEROL (test code = 2220) 67 MG/DL CALC LDL CHOL (test code = 2237) 93 MG/DL RISK RATIO LDL/HDL (test code = 1.39 RATIO 2238) CBC W/AUTO [id number] 00:00:00 Test Item Value Reference Range Interpretation [...] code = 1015) 152 K/UL CBC W/AUTO [id number] 00:00:00 Test Item Value Reference Range Interpretation [...] code = 1015) 152 K/UL CBC W/AUTO [id number] 00:00:00 Test Item Value Reference Range Interpretation [...]
--- NOTE | 2022-07-27 14:48 | RAD REPORT ---
EXAM DESCRIPTION: RAD - Foot Left 3 View - 07/27/2022 2:31 pm CLINICAL HISTORY: Left Foot pain FINDINGS: No fracture or dislocation is seen. Soft tissue swelling is present. Hallux valgus deformity is seen
--- NOTE | 2022-07-27 15:13 | EDPHYS ---
Physician Documentation [facility] Name: Sidra Hodges Age: 47 yrs Sex: Female : 1975 Arrival Date: 07/27/2022 Time: 13:55 Bed IW2 Private MD: ED Physician Yong Banks HPI: 07/27 14:02 This 47 yrs old Female presents to ER via Unassigned with complaints of Leg rn Pain. 14:02 The patient presents with pain. The complaints affect the dorsum of left foot. Onset: rn The symptoms/episode began/occurred 1 week(s) ago. Modifying factors: The symptoms are alleviated by elevating leg, remaining still, walking boot. the symptoms are aggravated by weight bearing. Associated signs and symptoms: Pertinent negatives fever, numbness, tingling, weakness. Severity of symptoms: At their worst the symptoms were mild, in the emergency department the symptoms are unchanged. The patient has experienced similar episodes in the past. The patient has been recently seen at the [facility] Emergency Department. Pt seen twice already for this injury. No new injury, has been in walking boot this entire time. Reports persistent pain to distal left foot. No weakness/fever.. 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 - Social history:: Smoking status: Patient denies any tobacco usage or history of. - Family history:: not pertinent. - Hospitalizations: : No recent hospitalization is reported. ROS: 14:04 Constitutional: Negative for fever, chills, and weight loss, MS/Extremity: + left foot rn pain and injury Skin: + bruising to left distal foot/toes Neuro: Negative for headache, weakness, numbness, tingling, and seizure. Exam: 14:04 Constitutional: This is a well developed, well nourished patient who is awake, alert, rn and in no acute distress. Skin: Warm, dry, no cyanosis MS/ Extremity: Pulses equal, no cyanosis. Neurovascular intact. + ecchymosis left lateral distal foot over 4th/5th proximal toes. Vital Signs: 14:00 BP 135 / 74; Pulse 82; Resp 16; Temp 97; Pulse Ox 99% ; ko1 MDM: 13:55 Patient medically screened. rn 15:10 Differential diagnosis: closed fracture, contusion. Data reviewed: vital signs, nurses rn notes, radiologic studies, plain films, and as a result, I will discharge patient. Independent interpretation of the following test(s) in the Emergency Department X-Ray: My interpretation is Xray left foot neg for acute fracture/dislocation. Counseling: I had a detailed discussion with the patient and/or guardian regarding: the historical points, exam findings, and any diagnostic results supporting the discharge/admit diagnosis, radiology results, the need for outpatient follow up, to return to the emergency department if symptoms worsen or persist or if there are any questions or concerns that arise at home. Response to treatment: There is no appreciated change of the patient's symptoms at this time, and as a result, I will discharge patient. Special discussion: I discussed with the patient/guardian in detail that at this point there is no indication for admission to the hospital. It is understood, however, that if the symptoms persist or worsen the patient needs to return immediately for re-evaluation. Based on the history and exam findings, there is no indication for further emergent testing or inpatient evaluation. I discussed with the patient/guardian the need to see the primary care provider for further evaluation of the symptoms. ED course: NO acute fracture on xray, xray foot was not obtained last visit so obtained today. Walking boot loosened because it seemed tight. Will dc home with return precautions. . 07/27 14:04 Order name: XRAY Foot LEFT 3 View; Complete Time: 15:10 rn Administered Medications: No medications were administered Disposition Summary: 07/27/22 15:12 Discharge Ordered Location: Home rn Problem: new rn Symptoms: have improved rn Condition: Stable rn Diagnosis - Pain in left foot rn Followup: rn - With: Private Physician - When: As needed - Reason: Recheck today's complaints, Re-evaluation by your physician Discharge Instructions: - Discharge Summary Sheet rn - Foot Sprain rn - Foot Pain rn Forms: - Medication Reconciliation Form rn - Thank You Letter rn - Antibiotic yarn spinner - Prescription Opioid Use rn Signatures: Dispatcher [employer] Yong Hernandez MD MD rn Oliver, Kathy, RN RN ko1
--- NOTE | 2022-07-27 15:13 | ER ---
Nurse's Notes [facility] Name: Sidra Hodges Age: 47 yrs Sex: Female : 1975 Arrival Date: 07/27/2022 Time: 13:55 Bed IW2 Private MD: Diagnosis: Pain in left foot Presentation: 07/27 14:00 Chief complaint: Patient states: my left foot hurts. Coronavirus screen: At this time, ko1 the client does not indicate any symptoms associated with coronavirus-19. Ebola Screen: No symptoms or risks identified at this time. Initial Sepsis Screen: Does the patient meet any 2 criteria? No. Patient's initial sepsis screen is negative. Does the patient have a suspected source of infection? No. Patient's initial sepsis screen is negative. Risk Assessment: Do you want to hurt yourself or someone else? Patient reports no desire to harm self or others. Onset of symptoms was July 27, 2022. 14:00 Method Of Arrival: EMS: [facility] ko1 14:00 Acuity: CARMITA 4 ko1 Triage Assessment: 14:58 General: Appears in no apparent distress. comfortable, Behavior is calm, cooperative, ko1 appropriate for age. Pain: Complains of pain in dorsum of left foot. 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 - Social history:: Smoking status: Patient denies any tobacco usage or history of. - Family history:: not pertinent. - Hospitalizations: : No recent hospitalization is reported. Screenin:27 [facility] ED Fall Risk Assessment (Adult) History of falling in the last 3 months, ko1 including since admission No falls in past 3 months (0 pts) Confusion or Disorientation No (0 pts) Intoxicated or Sedated No (0 pts) Impaired Gait Yes (1 pt) Mobility Assist Device Used Yes (1 pt) Altered Elimination No (0 pt) Score/Fall Risk Level 0 - 2 = Low Risk Oriented to surroundings, Maintained a safe environment, Educated pt \T\ family on fall prevention, incl call for assistance when getting out of bed, Assessed \T\ reinforced patient's understanding of fall precautions, Provided non-skid footwear, Hourly rounding (assess needs \T\ fall precautionary measures) done, Used ambulatory aids as needed (educated on \T\ assisted with), Used gait belt as appropriate. Abuse screen: Denies threats or abuse. Denies injuries from another. Nutritional screening: No deficits noted. Tuberculosis screening: No symptoms or risk factors identified. Assessment: 15:27 General: Appears in no apparent distress. comfortable, Behavior is calm, cooperative, ko1 appropriate for age. Pain: Complains of pain in dorsum of left foot. Neuro: No deficits noted. Cardiovascular: No deficits noted. Respiratory: No deficits noted. GI: No deficits noted. : No deficits noted. EENT: No deficits noted. Derm: No deficits noted. Musculoskeletal: Reports pain in dorsum of left foot. Vital Signs: 14:00 BP 135 / 74; Pulse 82; Resp 16; Temp 97; Pulse Ox 99% ; ko1 ED Course: 13:55 Patient arrived in ED. rn 13:55 Yong Banks MD is Attending Physician. rn 14:33 XRAY Foot LEFT 3 View In Process Unspecified. EDMS 14:58 Triage completed. ko1 14:58 Arm band placed on right wrist. Patient placed in waiting room, Patient notified of ko1 wait time. 15:27 Patient has correct armband on for positive identification. ko1 15:27 No provider procedures requiring assistance completed. Patient did not have IV access ko1 during this emergency room visit. Administered Medications: No medications were administered Medication: 15:27 VIS not applicable for this client. ko1 Outcome: 15:12 Discharge ordered by . rn 15:27 Discharged to home via wheelchair. ko1 15:27 Condition: stable 15:27 Discharge instructions given to patient, Instructed on discharge instructions, follow up and referral plans. Demonstrated understanding of instructions, follow-up care. 15:31 Patient left the ED. ko1 Signatures: Dispatcher [employer] EDMS Yong Banks MD MD rn Oliver, Kathy, RN RN ko1
[2022-07-27 15:44] VITALS: BP 135/74; TEMP 97; O2SAT 99
== END 2022-07-27 15:31 | disposition home or self-care (01) ==
LOC: ER 13:51
DX: M79.672 Pain in left foot (principal)
CPT/HCPCS: 99283

== ENCOUNTER 2022-07-29 15:29 | Emergency (ER) | payer SELFPAY ==
--- OUTSIDE RECORDS SUMMARY | 2022-07-29 15:32 | XMS REPORT | Continuity of Care Document ---
:1975 Author Organization [facility] t Address [address] [place] [address] Care Team Providers Name Role Phone Swapnil Fung Primary Care Physician [phone] Problems This patient has no known problems. [...] 25 mg 2-21 tablet 00:00: 00 ibuprofen 2020-06 No 1mg 600 mg 1-11 tablet 00:00: [...] Procedure Date / Time Performed Performing Clinician [facility] e [address] Ecg Routine Ecg W/least 12 2017-09-24 00:00:00 Lds W/i r Plan of Care Planned Activity Planned Date Details Comments Source Goal Plan of Care Note [code = 46860-8] Goal Plan of Care Note [code = 43582-9] Goal Plan of Care Note [code = 41934-2] Goal Plan of Care Note [code = 72553-1] Goal Plan of Care Note [code = 43852-8] Goal Plan of Care Note [code = 54530-8] Goal Plan of Care Note [code = 24462-5] Goal Plan of Care Note [code = 80370-9] Goal Plan of Care Note [code = 19475-2] Goal Plan of Care Note [code = 97846-0] Goal Plan of Care Note [code = 17084-7] Goal Plan of Care Note [code = 57814-6] Goal Plan of Care Note [code = 14640-5] Goal Plan of Care Note [code = 77868-0] Goal Plan of Care Note [code = 40346-4] Goal Plan of Care Note [code = 31526-7] Goal Plan of Care Note [code = 83584-9] Goal Plan of Care Note [code = 46241-5] Goal Plan of Care Note [code = 03003-5] Goal Plan of Care Note [code = 17283-0] Goal Plan of Care Note [code = 00468-1] Goal Plan of Care Note [code = 30823-7] Goal Plan of Care Note [code = 07313-3] Goal Plan of Care Note [code = 31729-8] Goal Plan of Care Note [code = 50159-4] Goal Plan of Care Note [code = 78714-9] Goal Plan of Care Note [code = 24557-0] Goal Plan of Care Note [code = 21838-7] Goal Plan of Care Note [code = 00098-6] Encounters Start End Encounter Admission Attending Care Care Encounter Source Date/Time Date/Time Type Type Clinicians Facility Department ID 2022-07-17 2022-07-17 Outpatient [facility] [id number] Henry 15:03:48 15:03:48 012Ivette Contreras 2022-07-17 2022-07-17 Outpatient [id number] 00:00:00 00:00:00 Visit [id number] Results Test Description Test Time Test Comments Results Result Comments Source SARS-CoV-2 (COVID-19) by RT-PCR (HIGH RISK) 2020-08-19 00:00 :00 Test Item Value Reference Range Interpretation Comme nts SARS-CoV-2 INTERPRETATION (test code = 00958) NEGATIVE SOURCE (test code = 01803) NOT SPECIFIED SARS-CoV-2 (COVID-19) by RT-PCR (HIGH RISK)2020-08-19 00:00:00 Test Item Value Reference Range Interpretation Comments SARS-CoV-2 INTERPRETATION (test NEGATIVE code = 10241) SOURCE (test code = 41947) NOT SPECIFIED PAP TEST, THINPREP, [id number] 00:00:00 Test Item Value Reference Range Interpretation Comments SOURCE: (test code = Cervical/Endocervical 8001) SLIDES: (test code = 1 8011) LMP: (test code = 8021) 06/2017 SPECIMEN ADEQUACY: (test (NOTE) code = 00171) INTERPRETATION: (test NILM/NO EPITH. code = 84004) ABNORMALITY;SEE BELOW PERFORATOR LOADER: (test Malek code = 8101) [place](ASCP) IAC LOCATION: (test code = (NOTE) 98557) CPT: (test code = 8140) (NOTE) PAP TEST, THINPREP, [id number] 00:00:00 Test Item Value Reference Range Interpretation Comments SOURCE: (test code = Cervical/Endocervical 8001) SLIDES: (test code = 1 8011) LMP: (test code = 8021) 06/2017 SPECIMEN ADEQUACY: (test (NOTE) code = 93234) INTERPRETATION: (test NILM/NO EPITH. code = 08747) ABNORMALITY;SEE BELOW PERFORATOR LOADER: (test Malek code = 8101) [facility],[place](ASCP) IAC LOCATION: (test code = (NOTE) 84394) CPT: (test code = 8140) (NOTE) HPV HIGH RISK WITH GENOTYPE, [id number] 00:00:00 Test Item Value Reference Range Interpretation Comments HPV HIGH RISK INTERP (test code = NEGATIVE 00317) HPV 16 (test code = 87419) NEGATIVE HPV 18 (test code = 93669) NEGATIVE HPV, HR, OTHER GENOTYPES (test code NEGATIVE = 69409) HPV HIGH RISK WITH GENOTYPE, [id number] 00:00:00 Test Item Value Reference Range Interpretation Comments HPV HIGH RISK INTERP (test code = NEGATIVE 88264) HPV 16 (test code = 46773) NEGATIVE HPV 18 (test code = 27038) NEGATIVE HPV, HR, OTHER GENOTYPES (test code NEGATIVE = 24981) Valproic Acid [id number] 08:03:22 Test Item Value Reference Range Interpretation Comments Valproic Acid Level (test code 57.6 ug/mL(g) 50.0-100.0 = Valproic Acid Level) Hemoglobin [id number] 09:36:00 Test Item Value Reference Range Interpretation Comments Hemoglobin A1c (test code 5.0 % 4.8-5.9 No n Diabetic = Hemoglobin A1c) 4.8-5.9%Di abetic <7.0% CT Shoulder w/o Contrast [id number] 16:49:13Patient: BHUMIKA JONES Date/Time01/09/2019 16:14 CDTReason for [...] Adam FSigned (Electronic Signature): 01/09/2019 4:49 pmRPR [id number] 21:33:20 Test Item Value Reference Range Interpretation [...] Expiration Dt) XR Shoulder Complete 2+ Views [id number] 15:41:25Patient: BHUMIKA JONES Date/Time01/07/2019 15:25 CDTReason for [...] CSigned (Electronic Signature): 01/07/2019 3:41 pmThyroid Stimulating [id number] 03:07:04 Test Item Value Reference Range Interpretation Comments TSH (test code = TSH) 9.650 mIU/mL 0.270-4.200 H Lipid [id number] 03:07:03 Test Item Value Reference Range Interpretation Comments Cholesterol Total 199 mg/dL 0-200 RISK OF HE ART (test code = DISEASEPublishe d by Cholesterol Total) [place] [employer] [place] Optimal Borderl ine [...] LDL/HDL Ratio=L DL Calc/HDL Chol HCG Qualitative [id number] 02:33:13 Test Item Value Reference Range Interpretation Comments HCG, Serum Qual (test code = HCG, Negative Serum Qual) Lot # (test code = Lot #) [id number] N Expiration Dt (test code = 2020-04-23 N Expiration Dt) Neg Control (test code = Neg Negative Control) Pos Control (test code = Pos Positive Control) Internal QC (test code = Internal Acceptable QC) Drugs of Abuse Urine [id number] 18:58:11 Test Item Value Reference Range Interpretation [...] (test code = Cannabinoid Screen Ur) Alcohol [id number] 18:47:34 Test Item Value Reference Range Interpretation Comments Ethanol Level (test <0.00 g/dL 0.00-0.01 Intoxica isabel 0.080 g/dL code = Ethanol or more Level) Ethanol Inst (test <0 N code = Ethanol Inst) Comprehensive Metabolic [id number] 18:47:33 Test Item Value Reference Range Interpretation [...] A/G 1.0 ratio N Ratio) Comprehensive Metabolic [id number] 18:47:33 Test Item Value Reference Range Interpretation [...] National Kidney Foundation, [email or web address].ni h.gov Comprehensive Metabolic [id number] 18:47:33 Test Item Value Reference Range Interpretation [...] Foundation, [email or web address].ni h.gov Complete Blood Count with [id number] 18:15:23 Test Item Value Reference Range Interpretation [...] code = IPF) 0 % N Automated [id number] 18:15:23 Test Item Value Reference Range Interpretation Comments Neutro Auto (test code = Neutro 42.1 % 36.0-70.0 Auto) Lymph Auto (test code = Lymph Auto) 40.0 % 12.0-44.0 Major Auto (test code = Major Auto) 12.2 % 0.0-11.0 H Eos, Auto (test code = Eos, Auto) 4.9 % 0.0-7.0 Basophil Auto (test code = Basophil 0.6 % 0.0-2.0 Auto) Neutro Absolute (test code = Neutro 2.2 x10 1.6-7.4 Absolute) Lymph Absolute (test code = Lymph 2.06 x10 .50-4.60 Absolute) Major Absolute (test code = Major .63 x10 .00-1.20 Absolute) Eos Absolute (test code = Eos 0.25 x10 0.00-0.74 Absolute) Baso Absolute (test code = Baso 0.03 x10 0.00-0.21 Absolute) IG [id number] 18:15:23 Test Item Value Reference Range Interpretation Comments IG (test code = IG) 0.2 % 0.0-5.0 IG Abs (test code = IG Abs) 0 x10 N VALPROIC [id number] 00:00:00 Test Item Value Reference Range Interpretation Comments VALPROIC ACID (test code = 3025) 69.8 UG/ML VALPROIC [id number] 00:00:00 Test Item Value Reference Range Interpretation Comments VALPROIC ACID (test code = 3025) 69.8 UG/ML URINE CULTURE, NO [id number] 00:00:00 Test Item Value Reference Range Interpretation Comments URINE CULTURE, NO SPECIMEN NUMBER: SENS (test code = [id number] 87052) URINE CULTURE, NO [id number] 00:00:00 Test Item Value Reference Range Interpretation Comments URINE CULTURE, NO SPECIMEN NUMBER: SENS (test code = [id number]) [id number] 00:00:00 Test Item Value Reference Range Interpretation Comments TRANSFERRIN (test code = 4936) 269 MG/DL [id number] 00:00:00 Test Item Value Reference Range Interpretation Comments TRANSFERRIN (test code = 4936) 269 MG/DL FOLIC [id number] 00:00:00 Test Item Value Reference Range Interpretation Comments FOLIC ACID (test code = 2695) 5.4 UG/L FOLIC [id number] 00:00:00 Test Item Value Reference Range Interpretation Comments FOLIC ACID (test code = 2695) 5.4 UG/L IRON BINDING CAPACITY AND IRON AND % [id number] 00:00:00 Test Item Value Reference Range Interpretation Comments IRON, SERUM (test code = 2222) 42 UG/DL UNSATURATED IBC (test code = 08422) 279 UG/DL CALC TOTAL IBC (test code = 2077) 321 UG/DL CALC % IRON SAT (test code = 2079) 13 % IRON BINDING CAPACITY AND IRON AND % [id number] 00:00:00 Test Item Value Reference Range Interpretation Comments IRON, SERUM (test code = 2222) 42 UG/DL UNSATURATED IBC (test code = 39422) 279 UG/DL CALC TOTAL IBC (test code = 2077) 321 UG/DL CALC % IRON SAT (test code = 2079) 13 % [id number] 00:00:00 Test Item Value Reference Range Interpretation Comments FERRITIN (test code = 2075) 15 NG/ML [id number] 00:00:00 Test Item Value Reference Range Interpretation Comments FERRITIN (test code = 2075) 15 NG/ML CULTURE, URINE [ADDED]2018-06-12 00:00:00 Test Item Value Reference Range Interpretation Comments CULTURE, URINE (test SPECIMEN NUMBER: code = 02270) [id number] CULTURE, URINE [ADDED]2018-06-12 00:00:00 Test Item Value Reference Range Interpretation Comments CULTURE, URINE (test SPECIMEN NUMBER: code = 49145) [id number] COMPREHENSIVE METABOLIC [id number] 00:00:00 Test Item Value Reference Range Interpretation Comments GLUCOSE (test code = 2217) 86 MG/DL BUN (test code = 2208) 16 MG/DL CREATININE (test code = 2214) 0.45 MG/DL eGFR AMER. (test code 141 ML/MIN/1.73 = 33515) eGFR NON- AMER. (test 122 ML/MIN/1.73 code = 45742) CALC BUN/CREAT (test code = 36 RATIO [...] code = 2219) 17 U/L COMPREHENSIVE METABOLIC [id number] 00:00:00 Test Item Value Reference Range Interpretation Comments GLUCOSE (test code = 2217) 86 MG/DL BUN (test code = 2208) 16 MG/DL CREATININE (test code = 2214) 0.45 MG/DL eGFR AMER. (test code 141 ML/MIN/1.73 = 88978) eGFR NON- AMER. (test 122 ML/MIN/1.73 code = 19448) CALC BUN/CREAT (test code = 36 RATIO [...] (test code = 2219) 17 U/L VALPROIC [id number] 00:00:00 Test Item Value Reference Range Interpretation Comments VALPROIC ACID (test code = 3025) 100.9 UG/ML VALPROIC [id number] 00:00:00 Test Item Value Reference Range Interpretation Comments VALPROIC ACID (test code = 3025) 100.9 UG/ML CBC W/AUTO [id number] 00:00:00 Test Item Value Reference Range Interpretation [...] code = 1015) 184 K/UL CBC W/AUTO [id number] 00:00:00 Test Item Value Reference Range Interpretation [...] code = 1015) 184 K/UL CBC W/AUTO [id number] 00:00:00 Test Item Value Reference Range Interpretation [...] = 1015) 184 K/UL PAP TEST, THINPREP, [id number] 00:00:00 Test Item Value Reference Range Interpretation Comments SOURCE: (test code = Cervical/Endocervical 8001) SLIDES: (test code = 1 8011) LMP: (test code = 03/2017 8021) SPECIMEN ADEQUACY: (NOTE) (test code = 37376) INTERPRETATION: (test NO EPITHELIAL code = 38321) ABNORMALITY SEE BELOW PERFORATOR LOADER: Santi Elizondo, (test code = 8101) CT(ASCP)IAC LOCATION: (test code (NOTE) = 59693) CPT: (test code = (NOTE) 8140) PAP TEST, THINPREP, [id number] 00:00:00 Test Item Value Reference Range Interpretation Comments SOURCE: (test code = Cervical/Endocervical 8001) SLIDES: (test code = 1 8011) LMP: (test code = 03/2017 8021) SPECIMEN ADEQUACY: (NOTE) (test code = 67064) INTERPRETATION: (test NO EPITHELIAL code = 71374) ABNORMALITY SEE BELOW PERFORATOR LOADER: Santi Elizondo, (test code = 8101) CT(ASCP)IAC LOCATION: (test code (NOTE) = 48681) CPT: (test code = (NOTE) 8140) HPV HIGH RISK WITH GENOTYPE, [id number] 00:00:00 Test Item Value Reference Range Interpretation Comments HPV HIGH RISK INTERP (test code = NEGATIVE 34522) HPV 16 (test code = 98325) NEGATIVE HPV 18 (test code = 43193) NEGATIVE HPV, HR, OTHER GENOTYPES (test code NEGATIVE = 86836) HPV HIGH RISK WITH GENOTYPE, [id number] 00:00:00 Test Item Value Reference Range Interpretation Comments HPV HIGH RISK INTERP (test code = NEGATIVE 12474) HPV 16 (test code = 55627) NEGATIVE HPV 18 (test code = 48270) NEGATIVE HPV, HR, OTHER GENOTYPES (test code NEGATIVE = 81045) GC AND CHLAMYDIA AMPLIFIED, [id number] 00:00:00 Test Item Value Reference Range Interpretation Comments GONORRHEA, TMA (test code = 13203) NEGATIVE CHLAMYDIA, TMA (test code = 04463) NEGATIVE HIV AB/AG COMBO RFLX [id number] 00:00:00 Test Item Value Reference Range Interpretation Comments HIV 1/2 4TH GEN, RFLX CONF (test NON-REACTIVE code = 3514) GC AND CHLAMYDIA AMPLIFIED, [id number] 00:00:00 Test Item Value Reference Range Interpretation Comments GONORRHEA, TMA (test code = 63280) NEGATIVE CHLAMYDIA, TMA (test code = 76360) NEGATIVE HIV AB/AG COMBO RFLX [id number] 00:00:00 Test Item Value Reference Range Interpretation Comments HIV 1/2 4TH GEN, RFLX CONF (test NON-REACTIVE code = 3514) HEMOGLOBIN [id number] 00:00:00 Test Item Value Reference Range Interpretation Comments HEMOGLOBIN A1c (test code = 36712) 5.2 % HEMOGLOBIN [id number] 00:00:00 Test Item Value Reference Range Interpretation Comments HEMOGLOBIN A1c (test code = 88859) 5.2 % HEMOGLOBIN [id number] 00:00:00 Test Item Value Reference Range Interpretation Comments HEMOGLOBIN A1c (test code = 13126) 5.2 % [id number] 00:00:00 Test Item Value Reference Range Interpretation Comments TSH (test code = 2821) 2.020 UIU/ML [id number] 00:00:00 Test Item Value Reference Range Interpretation Comments TSH (test code = 2821) 2.020 UIU/ML [id number] 00:00:00 Test Item Value Reference Range Interpretation Comments TSH (test code = 2821) 2.020 UIU/ML COMPREHENSIVE METABOLIC [id number] 00:00:00 Test Item Value Reference Range Interpretation Comments GLUCOSE (test code = 2217) 90 MG/DL BUN (test code = 2208) 21 MG/DL CREATININE (test code = 2214) 0.42 MG/DL eGFR AMER. (test code 145 ML/MIN/1.73 = 55027) eGFR NON- AMER. (test 126 ML/MIN/1.73 code = 17184) CALC BUN/CREAT (test code = 50 RATIO [...] code = 2219) <5 U/L COMPREHENSIVE METABOLIC [id number] 00:00:00 Test Item Value Reference Range Interpretation Comments GLUCOSE (test code = 2217) 90 MG/DL BUN (test code = 2208) 21 MG/DL CREATININE (test code = 2214) 0.42 MG/DL eGFR AMER. (test code 145 ML/MIN/1.73 = 07528) eGFR NON- AMER. (test 126 ML/MIN/1.73 code = 50512) CALC BUN/CREAT (test code = 50 RATIO [...] (test code = 2219) <5 U/L LIPID [id number] 00:00:00 Test Item Value Reference Range Interpretation Comments CHOLESTEROL (test code = 2210) 186 MG/DL TRIGLYCERIDES (test code = 2232) 131 MG/DL HDL CHOLESTEROL (test code = 2220) 67 MG/DL CALC LDL CHOL (test code = 2237) 93 MG/DL RISK RATIO LDL/HDL (test code = 1.39 RATIO 2238) LIPID [id number] 00:00:00 Test Item Value Reference Range Interpretation Comments CHOLESTEROL (test code = 2210) 186 MG/DL TRIGLYCERIDES (test code = 2232) 131 MG/DL HDL CHOLESTEROL (test code = 2220) 67 MG/DL CALC LDL CHOL (test code = 2237) 93 MG/DL RISK RATIO LDL/HDL (test code = 1.39 RATIO 2238) CBC W/AUTO [id number] 00:00:00 Test Item Value Reference Range Interpretation [...] code = 1015) 152 K/UL CBC W/AUTO [id number] 00:00:00 Test Item Value Reference Range Interpretation [...] code = 1015) 152 K/UL CBC W/AUTO [id number] 00:00:00 Test Item Value Reference Range Interpretation [...]
[2022-07-29] MEDS ORDERED: MORPHINE 4 MG/ML SYR ONE (18:02)
[2022-07-29] MEDS ORDERED: ONDANSETRON 4 MG (ODT) TAB ONE (18:02)
--- NOTE | 2022-07-29 18:47 | ER ---
Nurse's Notes [facility] Name: Sidra Hodges Age: 47 yrs Sex: Female : 1975 Arrival Date: 07/29/2022 Time: 15:30 Bed IW1 Private MD: Diagnosis: Pain in left foot Presentation: 07/29 15:31 Chief complaint: Patient states: Continued L foot pain from her injury 9 days ago. Boot ll1 in place EMS states: 20 R wrist, ofirmev 1GM IV given en route. VSS. Coronavirus screen: Vaccine status: Patient reports receiving the 2nd dose of the covid vaccine. Client denies travel out of the [place] in the last 14 days. At this time, the client does not indicate any symptoms associated with coronavirus-19. Ebola Screen: Patient denies travel to an Ebola-affected area in the 21 days before illness onset. Initial Sepsis Screen: Does the patient meet any 2 criteria? No. Patient's initial sepsis screen is negative. Does the patient have a suspected source of infection? Yes: Bone or joint infection. Risk Assessment: Do you want to hurt yourself or someone else? Patient reports no desire to harm self or others. Onset of symptoms was July 20, 2022. 15:31 Method Of Arrival: EMS ll1 15:31 Acuity: CARMITA 4 ll1 Triage Assessment: 15:32 General: Appears in no apparent distress. Behavior is calm, cooperative. Pain: ll1 Complains of pain in left foot Quality of pain is described as aching. Musculoskeletal: Circulation, motion, and sensation intact. Capillary refill < 3 seconds, Reports pain in left foot. TUYERE FITTER: 19:06 LMP N/A - control method ll1 Historical: - Allergies: 15:31 CARBAMAZEPINE DERIVATIVES; ll1 15:31 Depakote; ll1 15:31 Tegretol; ll1 - PMHx: 15:31 ADD/ADHD; Anxiety; Bipolar disorder; Chronic pain; hemorrhoids; Seizures; ll1 - PSHx: 15:31 R LEG SX; ll1 - Immunization history:: Adult Immunizations up to date. - Social history:: Smoking status: Patient denies any tobacco usage or history of. Screenin:05 [facility] ED Fall Risk Assessment (Adult) History of falling in the last 3 months, ll1 including since admission Yes- single mechanical fall (1 pt) Impaired Gait Yes (1 pt) Mobility Assist Device Used Yes (1 pt) Score/Fall Risk Level 3 or more points = High Risk Oriented to surroundings, Maintained a safe environment, Educated pt \T\ family on fall prevention, incl call for assistance when getting out of bed, Used ambulatory aids as needed (educated on \T\ assisted with). Abuse screen: Denies threats or abuse. Nutritional screening: No deficits noted. Tuberculosis screening: No symptoms or risk factors identified. Assessment: 18:02 Reassessment: Not in lobby when called to triage room to get pain medication. ll1 18:52 Reassessment: No changes from previously documented assessment. Patient and/or family ll1 updated on plan of care and expected duration. Pain level reassessed. Patient is alert, oriented x 3, equal unlabored respirations, skin warm/dry/pink. Vital Signs: 15:31 BP 122 / 84; Pulse 78; Resp 17; Temp 98.2; Pulse Ox 100% ; Pain 10/10; ll1 ED Course: 15:30 Patient arrived in ED. as 15:31 Arm band placed on. ll1 15:38 Triage completed. 1 16:11 Artur Watkins PA is PHCP. [facility] 16:11 Boris Olivera MD is Attending Physician. [facility] 18:46 Jose Bustos DPM is Referral Physician. [facility] 19:06 No provider procedures requiring assistance completed. Patient did not have IV access ll1 during this emergency room visit. Administered Medications: 18:52 Drug: morphine 4 mg Route: IM; Site: left gluteus; ll1 19:04 Follow up: Response: No adverse reaction ll1 18:52 Drug: Ondansetron 4 mg Route: PO; ll1 19:04 Follow up: Response: No adverse reaction 1 Outcome: 18:46 Discharge ordered by . [facility] 19:06 Discharged to home via wheelchair. ll1 19:06 Condition: stable 19:06 Discharge instructions given to patient, Instructed on discharge instructions, follow up and referral plans. medication usage, Demonstrated understanding of instructions, follow-up care, medications, Prescriptions given X 2. 19:11 Patient left the ED. kr3 Signatures: Artur Watkins PA PA jmm Martinez, Amelia as Lewis, Lynsay, RN RN ll1 Mackenzie Corona, RN RN kr3
--- NOTE | 2022-07-29 18:47 | EDPHYS ---
Physician Documentation [facility] Name: Sidra Hodges Age: 47 yrs Sex: Female : 1975 Arrival Date: 07/29/2022 Time: 15:30 Bed IW1 Private MD: ED Physician Boris Olivera HPI: 07/29 16:21 This 47 yrs old Female presents to ER via EMS with complaints of Foot Pain. jmm 16:21 The patient presents with pain. Onset: The symptoms/episode began/occurred gradually. jmm This is a 47-year-old female with history of anxiety, bipolar the presents emerged part with complaints of left foot pain which has been ongoing since an injury which occurred approximately 9 days ago. Denies any fever. . 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 - Social history:: Smoking status: Patient denies any tobacco usage or history of. ROS: 16:21 Constitutional: Negative for fever, chills, and weight loss, Cardiovascular: Negative jmm for chest pain, palpitations, and edema, Respiratory: Negative for shortness of breath, cough, wheezing, and pleuritic chest pain. 16:21 MS/extremity: Positive for pain. 16:21 All other systems are negative. Exam: 16:21 Constitutional: This is a well developed, well nourished patient who is awake, alert, jmm and in no acute distress. Head/Face: atraumatic. Eyes: EOMI, no conjunctival erythema appreciated ENT: Moist Mucus Membranes Neck: Trachea midline, Supple Chest/axilla: Normal chest wall appearance and motion. Cardiovascular: Regular rate and rhythm. No edema appreciated Respiratory: Normal respirations, no respiratory distress appreciated Abdomen/GI: Non distended Back: Normal ROM Skin: General appearance color normal 16:21 Musculoskeletal/extremity: ROM: intact in all extremities, Swelling noted to the left foot, dorsum is tender to palpation, no obvious deformity appreciated, full dorsalis pedis pulse, compartments are soft, neurovascular intact. 16:21 Skin: Appearance: Color: normal in color. 16:21 Neuro: Motor: is normal. Vital Signs: 15:31 BP 122 / 84; Pulse 78; Resp 17; Temp 98.2; Pulse Ox 100% ; Pain 10/10; ll1 MDM: 16:21 Patient medically screened. [facility] 18:45 Data reviewed: vital signs, nurses notes. I considered the following discharge [facility] prescriptions or medication management in the emergency department Medications were administered in the Emergency Department. See MAR. Counseling: I had a detailed discussion with the patient and/or guardian regarding: the historical points, exam findings, and any diagnostic results supporting the discharge/admit diagnosis, the need for outpatient follow up, to return to the emergency department if symptoms worsen or persist or if there are any questions or concerns that arise at home. ED course: Patient's pain was alleviated after I loosened Ortho boot. Patient given education on this. Advised follow-up with podiatry for further evaluation otherwise given strict return precautions.. Administered Medications: 18:52 Drug: morphine 4 mg Route: IM; Site: left gluteus; ll1 19:04 Follow up: Response: No adverse reaction ll1 18:52 Drug: Ondansetron 4 mg Route: PO; ll1 19:04 Follow up: Response: No adverse reaction ll1 Disposition: 19:17 Co-signature as Attending Physician, Boris Olivera MD I agree with the assessment and kdr plan of care. Disposition Summary: 07/29/22 18:46 Discharge Ordered Location: Home [facility] Condition: Stable [facility] Diagnosis - Pain in left foot [facility] Followup: [facility] - With: Jose Bustos DPM - When: 2 - 3 days - Reason: Recheck today's complaints, Continuance of care, Re-evaluation by your physician Discharge Instructions: - Discharge Summary Sheet [facility] - Foot Pain [facility] Forms: - Medication Reconciliation Form [facility] - Thank You Letter [facility] - Antibiotic Education [facility] - Prescription Opioid Use [facility] Prescriptions: - Diclofenac Sodium 75 mg Oral Tablet Sustained Release - take 1 tablet by ORAL route 2 times per day; 30 tablet; Refills: 0, Product [facility] Selection Permitted - orphenadrine citrate 100 mg Oral Tablet Sustained Release - take 1 tablet by ORAL route 2 times per day As needed; 20 tablet; Refills: 0, jmm Product Selection Permitted Signatures: Dispatcher [employer] Boris Uribe MD MD kdr Mickail, Joel, PA PA jmm Lewis, Lynsay, RN RN ll1 Corrections: (The following items were deleted from the chart) 18:11 16:13 Foot Left 3 View+RAD.RAD.BRZ ordered. ALEXX COFFEY
[2022-07-29 19:37] VITALS: BP 122/84; TEMP 98.2; O2SAT 100
== END 2022-07-29 19:11 | disposition home or self-care (01) ==
LOC: ER 15:29
DX: M79.672 Pain in left foot (principal)
CPT/HCPCS: 96372; 99283; Q0162

== ENCOUNTER 2022-08-01 01:06 | Emergency (ER) | payer SELFPAY ==
--- OUTSIDE RECORDS SUMMARY | 2022-08-01 01:10 | XMS REPORT | Continuity of Care Document ---
:1975 Author Organization [facility] t Address [address] [place] [address] Care Team Providers Name Role Phone Swapnil Fung Primary Care Physician [phone] Problems This patient has no known problems. [...] Procedure Date / Time Performed Performing Clinician [facility] e [address] Ecg Routine Ecg W/least 12 2017-09-24 00:00:00 Lds W/i r Plan of Care Planned Activity Planned Date Details Comments Source Goal Plan of Care Note [code = 09631-6] Goal Plan of Care Note [code = 79393-6] Goal Plan of Care Note [code = 32802-4] Goal Plan of Care Note [code = 51464-1] Goal Plan of Care Note [code = 38240-0] Goal Plan of Care Note [code = 30599-4] Goal Plan of Care Note [code = 85821-7] Goal Plan of Care Note [code = 61194-0] Goal Plan of Care Note [code = 06051-4] Goal Plan of Care Note [code = 61692-8] Goal Plan of Care Note [code = 47095-6] Goal Plan of Care Note [code = 23076-6] Goal Plan of Care Note [code = 06547-5] Goal Plan of Care Note [code = 67418-1] Goal Plan of Care Note [code = 33874-6] Goal Plan of Care Note [code = 79685-1] Goal Plan of Care Note [code = 96573-9] Goal Plan of Care Note [code = 59906-5] Goal Plan of Care Note [code = 25842-0] Goal Plan of Care Note [code = 41630-2] Goal Plan of Care Note [code = 21188-1] Goal Plan of Care Note [code = 88735-1] Goal Plan of Care Note [code = 22082-4] Goal Plan of Care Note [code = 52284-9] Goal Plan of Care Note [code = 06796-3] Goal Plan of Care Note [code = 34435-8] Goal Plan of Care Note [code = 55680-8] Goal Plan of Care Note [code = 47658-2] Goal Plan of Care Note [code = 38479-3] Encounters Start End Encounter Admission Attending Care Care Encounter Source Date/Time Date/Time Type Type Clinicians Facility Department ID 2022-07-17 2022-07-17 Outpatient [facility] [id number] Henry 15:03:48 15:03:48 012Ivette Contreras 2022-07-17 2022-07-17 Outpatient [id number] [id number] 00:00:00 00:00:00 Visit [id number] Results Test Description Test Time Test Comments Results Result Comments Source SARS-CoV-2 (COVID-19) by RT-PCR (HIGH RISK) 2020-08-19 00:00 :00 Test Item Value Reference Range Interpretation Comme nts SARS-CoV-2 INTERPRETATION (test code = 42811) NEGATIVE SOURCE (test code = 89640) NOT SPECIFIED SARS-CoV-2 (COVID-19) by RT-PCR (HIGH RISK)2020-08-19 00:00:00 Test Item Value Reference Range Interpretation Comments SARS-CoV-2 INTERPRETATION (test NEGATIVE code = 10426) SOURCE (test code = 96259) NOT SPECIFIED PAP TEST, THINPREP, [id number] 00:00:00 Test Item Value Reference Range Interpretation Comments SOURCE: (test code = Cervical/Endocervical 8001) SLIDES: (test code = 1 8011) LMP: (test code = 8021) 06/2017 SPECIMEN ADEQUACY: (test (NOTE) code = 28429) INTERPRETATION: (test NILM/NO EPITH. code = 79383) ABNORMALITY;SEE BELOW PATIENT ACCESS MANAGER: (test Malek code = 8101) [place], [place](ASCP) IAC LOCATION: (test code = (NOTE) 71343) CPT: (test code = 8140) (NOTE) PAP TEST, THINPREP, [id number] 00:00:00 Test Item Value Reference Range Interpretation Comments SOURCE: (test code = Cervical/Endocervical 8001) SLIDES: (test code = 1 8011) LMP: (test code = 8021) 06/2017 SPECIMEN ADEQUACY: (test (NOTE) code = 32970) INTERPRETATION: (test NILM/NO EPITH. code = 78926) ABNORMALITY;SEE BELOW PATIENT ACCESS MANAGER: (test Malek code = 8101) [facility],[place](ASCP) IAC LOCATION: (test code = (NOTE) 98898) CPT: (test code = 8140) (NOTE) HPV HIGH RISK WITH GENOTYPE, [id number] 00:00:00 Test Item Value Reference Range Interpretation Comments HPV HIGH RISK INTERP (test code = NEGATIVE 52474) HPV 16 (test code = 90849) NEGATIVE HPV 18 (test code = 54173) NEGATIVE HPV, HR, OTHER GENOTYPES (test code NEGATIVE = 37449) HPV HIGH RISK WITH GENOTYPE, [id number] 00:00:00 Test Item Value Reference Range Interpretation Comments HPV HIGH RISK INTERP (test code = NEGATIVE 71037) HPV 16 (test code = 87155) NEGATIVE HPV 18 (test code = 50237) NEGATIVE HPV, HR, OTHER GENOTYPES (test code NEGATIVE = 91349) Valproic Acid [id number] 08:03:22 Test Item Value Reference Range Interpretation Comments Valproic Acid Level (test code 57.6 ug/mL(g) 50.0-100.0 = Valproic Acid Level) Hemoglobin [id number] 09:36:00 Test Item Value Reference Range Interpretation Comments Hemoglobin A1c (test code 5.0 % 4.8-5.9 No n Diabetic = Hemoglobin A1c) 4.8-5.9%Di abetic <7.0% CT Shoulder w/o Contrast [id number] 16:49:13Patient: BHUMIKA JONES Date/Time01/09/2019 16:14 CDTReason for [...] Adam FSigned (Electronic Signature): 01/09/2019 4:49 pmRPR [id number] 21:33:20 Test Item Value Reference Range Interpretation [...] Expiration Dt) XR Shoulder Complete 2+ Views [id number] 15:41:25Patient: BHUMIKA JONES Date/Time01/07/2019 15:25 CDTReason for [...] CSigned (Electronic Signature): 01/07/2019 3:41 pmThyroid Stimulating [id number] 03:07:04 Test Item Value Reference Range Interpretation Comments TSH (test code = TSH) 9.650 mIU/mL 0.270-4.200 H Lipid [id number] 03:07:03 Test Item Value Reference Range Interpretation Comments Cholesterol Total 199 mg/dL 0-200 RISK OF HE ART (test code = DISEASEPublishe d by Cholesterol Total) [employer] [place] Optimal Borderl ine [...] LDL/HDL Ratio=L DL Calc/HDL Chol HCG Qualitative [id number] 02:33:13 Test Item Value Reference Range Interpretation Comments HCG, Serum Qual (test code = HCG, Negative Serum Qual) Lot # (test code = Lot #) [id number] N Expiration Dt (test code = 2020-04-23 N Expiration Dt) Neg Control (test code = Neg Negative Control) Pos Control (test code = Pos Positive Control) Internal QC (test code = Internal Acceptable QC) Drugs of Abuse Urine [id number] 18:58:11 Test Item Value Reference Range Interpretation [...] (test code = Cannabinoid Screen Ur) Alcohol [id number] 18:47:34 Test Item Value Reference Range Interpretation Comments Ethanol Level (test <0.00 g/dL 0.00-0.01 Intoxica isabel 0.080 g/dL code = Ethanol or more Level) Ethanol Inst (test <0 N code = Ethanol Inst) Comprehensive Metabolic [id number] 18:47:33 Test Item Value Reference Range Interpretation [...] A/G 1.0 ratio N Ratio) Comprehensive Metabolic [id number] 18:47:33 Test Item Value Reference Range Interpretation [...] National Kidney Foundation, http://nkdep.ni h.gov Comprehensive Metabolic [id number] 18:47:33 Test Item Value Reference Range Interpretation [...] ag e have not been validated by [facility] MDRD study and should be [...] ag e have not been validated by [facility] MDRD study and should be interpreted wit h caution. eGFR R esult Interpretation: eGFR > or = 60 is in the Normal RangeeGF R < 60 may mean kid betzaida diseaseeGFR < 1 5 may mean kidney failure Rang es recommended by the National Kidney Foundation, http://nkdep.ni h.gov Complete Blood Count with [id number] 18:15:23 Test Item Value Reference Range Interpretation [...] code = IPF) 0 % N Automated [id number] 18:15:23 Test Item Value Reference Range Interpretation Comments Neutro Auto (test code = Neutro 42.1 % 36.0-70.0 Auto) Lymph Auto (test code = Lymph Auto) 40.0 % 12.0-44.0 Hemphill Auto (test code = Hemphill Auto) 12.2 % 0.0-11.0 H Eos, Auto (test code = Eos, Auto) 4.9 % 0.0-7.0 Basophil Auto (test code = Basophil 0.6 % 0.0-2.0 Auto) Neutro Absolute (test code = Neutro 2.2 x10 1.6-7.4 Absolute) Lymph Absolute (test code = Lymph 2.06 x10 .50-4.60 Absolute) Hemphill Absolute (test code = Hemphill .63 x10 .00-1.20 Absolute) Eos Absolute (test code = Eos 0.25 x10 0.00-0.74 Absolute) Baso Absolute (test code = Baso 0.03 x10 0.00-0.21 Absolute) IG [id number] 18:15:23 Test Item Value Reference Range Interpretation Comments IG (test code = IG) 0.2 % 0.0-5.0 IG Abs (test code = IG Abs) 0 x10 N VALPROIC [id number] 00:00:00 Test Item Value Reference Range Interpretation Comments VALPROIC ACID (test code = 3025) 69.8 UG/ML VALPROIC [id number] 00:00:00 Test Item Value Reference Range Interpretation Comments VALPROIC ACID (test code = 3025) 69.8 UG/ML URINE CULTURE, NO [id number] 00:00:00 Test Item Value Reference Range Interpretation Comments URINE CULTURE, NO SPECIMEN NUMBER: SENS (test code = 56136002 07844) URINE CULTURE, NO [id number] 00:00:00 Test Item Value Reference Range Interpretation Comments URINE CULTURE, NO SPECIMEN NUMBER: SENS (test code = [id number]) [id number] 00:00:00 Test Item Value Reference Range Interpretation Comments TRANSFERRIN (test code = 4936) 269 MG/DL [id number] 00:00:00 Test Item Value Reference Range Interpretation Comments TRANSFERRIN (test code = 4936) 269 MG/DL FOLIC [id number] 00:00:00 Test Item Value Reference Range Interpretation Comments FOLIC ACID (test code = 2695) 5.4 UG/L FOLIC [id number] 00:00:00 Test Item Value Reference Range Interpretation Comments FOLIC ACID (test code = 2695) 5.4 UG/L IRON BINDING CAPACITY AND IRON AND % [id number] 00:00:00 Test Item Value Reference Range Interpretation Comments IRON, SERUM (test code = 2222) 42 UG/DL UNSATURATED IBC (test code = 03527) 279 UG/DL CALC TOTAL IBC (test code = 2077) 321 UG/DL CALC % IRON SAT (test code = 2079) 13 % IRON BINDING CAPACITY AND IRON AND % [id number] 00:00:00 Test Item Value Reference Range Interpretation Comments IRON, SERUM (test code = 2222) 42 UG/DL UNSATURATED IBC (test code = 05734) 279 UG/DL CALC TOTAL IBC (test code = 2077) 321 UG/DL CALC % IRON SAT (test code = 2079) 13 % [id number] 00:00:00 Test Item Value Reference Range Interpretation Comments FERRITIN (test code = 2075) 15 NG/ML [id number] 00:00:00 Test Item Value Reference Range Interpretation Comments FERRITIN (test code = 2075) 15 NG/ML CULTURE, URINE [ADDED]2018-06-12 00:00:00 Test Item Value Reference Range Interpretation Comments CULTURE, URINE (test SPECIMEN NUMBER: code = 06089) [id number] CULTURE, URINE [ADDED]2018-06-12 00:00:00 Test Item Value Reference Range Interpretation Comments CULTURE, URINE (test SPECIMEN NUMBER: code = 20785) [id number] COMPREHENSIVE METABOLIC [id number] 00:00:00 Test Item Value Reference Range Interpretation Comments GLUCOSE (test code = 2217) 86 MG/DL BUN (test code = 2208) 16 MG/DL CREATININE (test code = 2214) 0.45 MG/DL eGFR AMER. (test code 141 ML/MIN/1.73 = 22894) eGFR NON- AMER. (test 122 ML/MIN/1.73 code = 97209) CALC BUN/CREAT (test code = 36 RATIO [...] code = 2219) 17 U/L COMPREHENSIVE METABOLIC [id number] 00:00:00 Test Item Value Reference Range Interpretation Comments GLUCOSE (test code = 2217) 86 MG/DL BUN (test code = 2208) 16 MG/DL CREATININE (test code = 2214) 0.45 MG/DL eGFR AMER. (test code 141 ML/MIN/1.73 = 46842) eGFR NON- AMER. (test 122 ML/MIN/1.73 code = 41663) CALC BUN/CREAT (test code = 36 RATIO [...] (test code = 2219) 17 U/L VALPROIC [id number] 00:00:00 Test Item Value Reference Range Interpretation Comments VALPROIC ACID (test code = 3025) 100.9 UG/ML VALPROIC [id number] 00:00:00 Test Item Value Reference Range Interpretation Comments VALPROIC ACID (test code = 3025) 100.9 UG/ML CBC W/AUTO [id number] 00:00:00 Test Item Value Reference Range Interpretation [...] code = 1015) 184 K/UL CBC W/AUTO [id number] 00:00:00 Test Item Value Reference Range Interpretation [...] code = 1015) 184 K/UL CBC W/AUTO [id number] 00:00:00 Test Item Value Reference Range Interpretation [...] = 1015) 184 K/UL PAP TEST, THINPREP, [id number] 00:00:00 Test Item Value Reference Range Interpretation Comments SOURCE: (test code = Cervical/Endocervical 8001) SLIDES: (test code = 1 8011) LMP: (test code = 03/2017 8021) SPECIMEN ADEQUACY: (NOTE) (test code = 49742) INTERPRETATION: (test NO EPITHELIAL code = 93325) ABNORMALITY SEE BELOW PATIENT ACCESS MANAGER: Santi Elizondo, (test code = 8101) CT(ASCP)IAC LOCATION: (test code (NOTE) = 55135) CPT: (test code = (NOTE) 8140) PAP TEST, THINPREP, [id number] 00:00:00 Test Item Value Reference Range Interpretation Comments SOURCE: (test code = Cervical/Endocervical 8001) SLIDES: (test code = 1 8011) LMP: (test code = 03/2017 8021) SPECIMEN ADEQUACY: (NOTE) (test code = 95899) INTERPRETATION: (test NO EPITHELIAL code = 27541) ABNORMALITY SEE BELOW PATIENT ACCESS MANAGER: Santi Elizondo, (test code = 8101) CT(ASCP)IAC LOCATION: (test code (NOTE) = 29149) CPT: (test code = (NOTE) 8140) HPV HIGH RISK WITH GENOTYPE, [id number] 00:00:00 Test Item Value Reference Range Interpretation Comments HPV HIGH RISK INTERP (test code = NEGATIVE 41456) HPV 16 (test code = 29094) NEGATIVE HPV 18 (test code = 90750) NEGATIVE HPV, HR, OTHER GENOTYPES (test code NEGATIVE = 05605) HPV HIGH RISK WITH GENOTYPE, [id number] 00:00:00 Test Item Value Reference Range Interpretation Comments HPV HIGH RISK INTERP (test code = NEGATIVE 56776) HPV 16 (test code = 29816) NEGATIVE HPV 18 (test code = 81336) NEGATIVE HPV, HR, OTHER GENOTYPES (test code NEGATIVE = 78049) GC AND CHLAMYDIA AMPLIFIED, [id number] 00:00:00 Test Item Value Reference Range Interpretation Comments GONORRHEA, TMA (test code = 27375) NEGATIVE CHLAMYDIA, TMA (test code = 97680) NEGATIVE HIV AB/AG COMBO RFLX [id number] 00:00:00 Test Item Value Reference Range Interpretation Comments HIV 1/2 4TH GEN, RFLX CONF (test NON-REACTIVE code = 3514) GC AND CHLAMYDIA AMPLIFIED, [id number] 00:00:00 Test Item Value Reference Range Interpretation Comments GONORRHEA, TMA (test code = 24956) NEGATIVE CHLAMYDIA, TMA (test code = 06943) NEGATIVE HIV AB/AG COMBO RFLX [id number] 00:00:00 Test Item Value Reference Range Interpretation Comments HIV 1/2 4TH GEN, RFLX CONF (test NON-REACTIVE code = 3514) HEMOGLOBIN [id number] 00:00:00 Test Item Value Reference Range Interpretation Comments HEMOGLOBIN A1c (test code = 96331) 5.2 % HEMOGLOBIN [id number] 00:00:00 Test Item Value Reference Range Interpretation Comments HEMOGLOBIN A1c (test code = 59564) 5.2 % HEMOGLOBIN [id number] 00:00:00 Test Item Value Reference Range Interpretation Comments HEMOGLOBIN A1c (test code = 95086) 5.2 % [id number] 00:00:00 Test Item Value Reference Range Interpretation Comments TSH (test code = 2821) 2.020 UIU/ML [id number] 00:00:00 Test Item Value Reference Range Interpretation Comments TSH (test code = 2821) 2.020 UIU/ML [id number] 00:00:00 Test Item Value Reference Range Interpretation Comments TSH (test code = 2821) 2.020 UIU/ML COMPREHENSIVE METABOLIC [id number] 00:00:00 Test Item Value Reference Range Interpretation Comments GLUCOSE (test code = 2217) 90 MG/DL BUN (test code = 2208) 21 MG/DL CREATININE (test code = 2214) 0.42 MG/DL eGFR AMER. (test code 145 ML/MIN/1.73 = 13737) eGFR NON- AMER. (test 126 ML/MIN/1.73 code = 76296) CALC BUN/CREAT (test code = 50 RATIO [...] code = 2219) <5 U/L COMPREHENSIVE METABOLIC [id number] 00:00:00 Test Item Value Reference Range Interpretation Comments GLUCOSE (test code = 2217) 90 MG/DL BUN (test code = 2208) 21 MG/DL CREATININE (test code = 2214) 0.42 MG/DL eGFR AMER. (test code 145 ML/MIN/1.73 = 46869) eGFR NON- AMER. (test 126 ML/MIN/1.73 code = 45905) CALC BUN/CREAT (test code = 50 RATIO [...] (test code = 2219) <5 U/L LIPID [id number] 00:00:00 Test Item Value Reference Range Interpretation Comments CHOLESTEROL (test code = 2210) 186 MG/DL TRIGLYCERIDES (test code = 2232) 131 MG/DL HDL CHOLESTEROL (test code = 2220) 67 MG/DL CALC LDL CHOL (test code = 2237) 93 MG/DL RISK RATIO LDL/HDL (test code = 1.39 RATIO 2238) LIPID [id number] 00:00:00 Test Item Value Reference Range Interpretation Comments CHOLESTEROL (test code = 2210) 186 MG/DL TRIGLYCERIDES (test code = 2232) 131 MG/DL HDL CHOLESTEROL (test code = 2220) 67 MG/DL CALC LDL CHOL (test code = 2237) 93 MG/DL RISK RATIO LDL/HDL (test code = 1.39 RATIO 2238) CBC W/AUTO [id number] 00:00:00 Test Item Value Reference Range Interpretation [...] code = 1015) 152 K/UL CBC W/AUTO [id number] 00:00:00 Test Item Value Reference Range Interpretation [...] code = 1015) 152 K/UL CBC W/AUTO [id number] 00:00:00 Test Item Value Reference Range Interpretation [...]
[2022-08-01] MEDS ORDERED: IBUPROFEN 400 MG TAB ONE (01:35)
[2022-08-01] MEDS ORDERED: IBUPROFEN 200 MG TAB PO ONE (01:35)
--- NOTE | 2022-08-01 02:10 | ER ---
Nurse's Notes [facility] Name: Sidra Hodges Age: 47 yrs Sex: Female : 1975 Arrival Date: 08/01/2022 Time: 01:10 Bed 18 Private MD: Diagnosis: Nondisplaced fibula fracture - left Presentation: 08/01 01:12 Chief complaint: Patient states: left foot/ankle pain of 10 with swelling and bruising pf1 to left medial ankle,onset approximately 1 week. Patient was seen here last week for the same symptoms, xray was negative. Patient arrived per [facility]. Patient had a walker boot upon arrival to ER. Coronavirus screen: At this time, the client does not indicate any symptoms associated with coronavirus-19. Ebola Screen: Patient negative for fever greater than or equal to 101.5 degrees Fahrenheit, and additional compatible Ebola Virus Disease symptoms. 01:12 Method Of Arrival: EMS: [facility] pf1 02:26 Initial Sepsis Screen: Does the patient meet any 2 criteria? No. Patient's initial kd3 sepsis screen is negative. Does the patient have a suspected source of infection? No. Patient's initial sepsis screen is negative. Risk Assessment: Do you want to hurt yourself or someone else? Patient reports no desire to harm self or others. Onset of symptoms was August 01, 2022. 02:26 Acuity: CARMITA 4 kd3 Triage Assessment: 01:26 General: see triage assessment. 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 - Social history:: Smoking status: unknown. Screenin:23 [facility] ED Fall Risk Assessment (Adult) History of falling in the last 3 months, pf1 including since admission No falls in past 3 months (0 pts) Confusion or Disorientation No (0 pts) Intoxicated or Sedated No (0 pts) Impaired Gait No (0 pts) Mobility Assist Device Used No (0 pt) Altered Elimination No (0 pt) Score/Fall Risk Level 0 - 2 = Low Risk Oriented to surroundings, Maintained a safe environment, Educated pt \T\ family on fall prevention, incl call for assistance when getting out of bed, Assessed \T\ reinforced patient's understanding of fall precautions, Provided non-skid footwear, Hourly rounding (assess needs \T\ fall precautionary measures) done, Used ambulatory aids as needed (educated on \T\ assisted with), Used gait belt as appropriate. Abuse screen: Denies threats or abuse. Nutritional screening: No deficits noted. Tuberculosis screening: No symptoms or risk factors identified. Assessment: 01:18 General: Appears in no apparent distress. comfortable, obese, Behavior is calm, pf1 cooperative, appropriate for age, quiet. Pain: Complains of pain in left foot and left ankle Pain currently is 10 out of 10 on a pain scale. Pain began approximately 1 week ago. Neuro: No deficits noted. Level of Consciousness is awake, alert, obeys commands, Oriented to person, place, Appropriate for age. Cardiovascular: No deficits noted. Capillary refill < 3 seconds Patient's skin is warm and dry. Respiratory: No deficits noted. Airway is patent Trachea midline Respiratory effort is even, unlabored, Respiratory pattern is regular, symmetrical. GI: No deficits noted. No signs and/or symptoms were reported involving the gastrointestinal system. Abdomen is round non-distended. : No deficits noted. No signs and/or symptoms were reported regarding the genitourinary system. EENT: No deficits noted. No signs and/or symptoms were reported regarding the EENT system. Derm: No deficits noted. No signs and/or symptoms reported regarding the dermatologic system. Musculoskeletal: Circulation, motion, and sensation intact. Capillary refill < 3 seconds, Range of motion: intact in all extremities, Swelling present in dorsum of left foot and anterior aspect of left ankle Reports pain in dorsum of left foot and left ankle Pain is 10 out of 10 on a pain scale. Vital Signs: 01:15 BP 116 / 69; Pulse 83; Resp 18; Temp 97.4(O); Pulse Ox 100% on R/A; Weight 72.57 kg; pf1 Height 5 ft. (152.40 cm); Pain 10/10; 02:26 BP 132 / 79; Pulse 73; Resp 16; Pulse Ox 99% on R/A; kd3 01:15 Body Mass Index 31.25 (72.57 kg, 152.40 cm) pf1 ED Course: 01:10 Patient arrived in ED. kb 01:11 Cristina Sewell FNP-C [facility]. kb 01:11 Pascual Lundy MD is Attending Physician. kb 01:24 Patient has correct armband on for positive identification. Bed in low position. Call pf1 light in reach. Side rails up X2. 01:27 Ankle Left 3 View XRAY In Process Unspecified. EDMS 01:31 Kate Rodrigues, RN is Primary Nurse. kd3 02:27 Triage completed. kd3 02:27 No provider procedures requiring assistance completed. Patient did not have IV access kd3 during this emergency room visit. 02:28 Arm band placed on right wrist. kd3 Administered Medications: 01:33 Drug: Ibuprofen 600 mg Route: PO; pf1 02:28 Follow up: Response: No adverse reaction; Pain is decreased kd3 Medication: 02:28 VIS not applicable for this client. kd3 Outcome: 02:10 Discharge ordered by . kb 02:28 Discharged to home kd3 02:28 Condition: stable 02:28 Discharge instructions given to patient, Instructed on discharge instructions, follow up and referral plans. Demonstrated understanding of instructions, follow-up care. 02:29 Patient left the ED. kd3 Signatures: Dispatcher [employer] EDMS Cristina Sewell FNP-C [employer]LL[employer]ER-[employer] Donato Larson oe Kate Rodrigues, RN RN kd3 Le curtis RN RN pf1 Corrections: (The following items were deleted from the chart) 01:18 01:15 BP 116 / 69; Pulse 83bpm; Resp 18bpm; Pulse Ox 100% RA; Temp 97.4F Oral; oe pf1
--- NOTE | 2022-08-01 02:10 | EDPHYS ---
Physician Documentation [facility] Name: Sidra Hodges Age: 47 yrs Sex: Female : 1975 Arrival Date: 08/01/2022 Time: 01:10 Bed 18 Private MD: ED Physician Pascual Lundy HPI: 08/01 01:17 This 47 yrs old Female presents to ER via EMS with complaints of ankle pain. kb 01:17 The patient presents with an injury, pain. The complaints affect the left ankle. Onset: kb The symptoms/episode began/occurred 2 week(s) ago. Context: resulted from the patient falling, The patient can fully bear weight on the affected extremity. the patient is able to ambulate. Associated signs and symptoms: Pertinent positives: swelling, Pertinent negatives: calf tenderness, fever, nausea, numbness, rash, tingling, vomiting, warmth, weakness. Modifying factors: The symptoms are alleviated by nothing, the symptoms are aggravated by weight bearing, movement. Severity of symptoms: At their worst the symptoms were moderate, in the emergency department the symptoms are unchanged. The patient has not experienced similar symptoms in the past. The patient has been recently seen at the [facility] Emergency Department. Pt presents for continued pain, swelling and bruising to left ankle and foot that began after a fall 2 weeks ago. Has been seen here multiple times for this injury.. 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 - Social history:: Smoking status: unknown. ROS: 01:21 Constitutional: Negative for fever, chills, and weight loss. kb 01:21 MS/extremity: Positive for ecchymosis, pain, swelling, tenderness, of the anterior aspect of left ankle and dorsum of left foot. 01:21 All other systems are negative. Exam: 01:21 Constitutional: This is a well developed, well nourished patient who is awake, alert, kb and in no acute distress. Head/Face: Normocephalic, atraumatic. ENT: Moist Mucous membranes Cardiovascular: Regular rate and rhythm with a normal S1 and S2. No gallops, murmurs, or rubs. No pulse deficits. Respiratory: Respirations even and unlabored. No increased work of breathing. Talking in full sentences Abdomen/GI: Soft, non-tender. No distention Skin: Warm, dry with normal turgor. Normal color. Neuro: Awake and alert, GCS 15, oriented to person, place, time, and situation. Moves all extremities. Normal gait. Psych: Awake, alert, with orientation to person, place and time. Behavior, mood, and affect are within normal limits. 01:21 Musculoskeletal/extremity: Extremities: grossly normal except: noted in the dorsum of left foot and anterior aspect of left ankle: ecchymosis, pain, swelling, tenderness, ROM: intact in all extremities, Circulation is intact in all extremities. Sensation intact. Weight bearing: able to fully bear weight. Vital Signs: 01:15 BP 116 / 69; Pulse 83; Resp 18; Temp 97.4(O); Pulse Ox 100% on R/A; Weight 72.57 kg; pf1 Height 5 ft. (152.40 cm); Pain 10/10; 02:26 BP 132 / 79; Pulse 73; Resp 16; Pulse Ox 99% on R/A; kd3 01:15 Body Mass Index 31.25 (72.57 kg, 152.40 cm) pf1 MDM: 01:10 Patient medically screened. kb 01:14 Differential diagnosis: fracture, sprain. Data reviewed: vital signs, nurses notes. Historians other than the Patient: EMS: [facility]. ED course: Patient presents for continued swelling, ecchymosis and pain to left ankle that started after injury in June. Patient had ankle x-ray on 07/19 that showed no fracture but recommended repeat x-ray in 7 days for continued symptoms. X-ray of the foot was done on 07/27 that was negative for fracture. Will repeat ankle x-ray to confirm no fracture.. 02:09 Counseling: I had a detailed discussion with the patient and/or guardian regarding: the kb historical points, exam findings, and any diagnostic results supporting the discharge/admit diagnosis, radiology results, the need for outpatient follow up, a orthopedic surgeon, to return to the emergency department if symptoms worsen or persist or if there are any questions or concerns that arise at home. 02:09 ED course: Pt will continue to wear walking boot . kb 08/01 01:11 Order name: Ankle Left 3 View XRAY kb Administered Medications: 01:33 Drug: Ibuprofen 600 mg Route: PO; pf1 02:28 Follow up: Response: No adverse reaction; Pain is decreased kd3 Disposition Summary: 08/01/22 02:10 Discharge Ordered Location: Home kb Condition: Stable kb Diagnosis - Nondisplaced fibula fracture - left kb Followup: kb - With: Emergency Department - When: As needed - Reason: Worsening of condition Followup: kb - With: Private Physician - When: 2 - 3 days - Reason: Recheck today's complaints, Continuance of care, Re-evaluation by your physician Discharge Instructions: - Discharge Summary Sheet kb - Nondisplaced Fibular Ankle Fracture Treated With Immobilization kb Forms: - Medication Reconciliation Form kb - Thank You Letter kb - Antibiotic Education kb - Prescription Opioid Use kb Signatures: Dispatcher [employer] EDCristina Salguero, BRIAN CROFT-Kate Ghosh RN RN kd3 Le curtis RN RN pf1
[2022-08-01 02:56] VITALS: TEMP 97.4
[2022-08-01 02:57] VITALS: BP 132/79; O2SAT 99
--- NOTE | 2022-08-01 11:21 | RAD REPORT ---
EXAM DESCRIPTION: RAD - Ankle Left 3 View - 08/01/2022 1:25 am CLINICAL HISTORY: The patient is 47 years old and is Female; PAIN TECHNIQUE: Frontal, lateral and oblique views of the left ankle. 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 An obliquely oriented fracture involving the distal fibula is present. The fracture plane is superior to the tibiotalar joint. The ankle mortise is congruent. The talar dome is round and smooth. No di slocation. SOFT TISSUES: Diffuse soft tissue swelling about the ankle is present. IMPRESSION: Nondisplaced distal fibular fracture with mild diffuse soft tissue swelling. Electronically signed by: Adelina Garza MD 08/01/2022 1:55 AM WIRE ROLLER Due to temporary technical issues with the PACS/Fluency reporting system, reports are being signed by the in house radiologists without review as a courtesy to insure prompt reporting. The interpreting radiologist is fully responsible for the content of the report.
== END 2022-08-01 02:29 | disposition home or self-care (01) ==
LOC: ER 01:06
DX: S82.402A Unspecified fracture of shaft of left fibula, initial encounter for closed fracture (principal)

== ENCOUNTER 2022-08-01 07:13 | Emergency (ER) | payer SELFPAY ==
--- OUTSIDE RECORDS SUMMARY | 2022-08-01 07:27 | XMS REPORT | Continuity of Care Document ---
:1975 Author Organization [facility] t Address [address] [place] [address] Care Team Providers Name Role Phone Swapnil Fung Primary Care Physician [phone] Problems This patient has no known problems. Allergies, Adverse Reactions, Alerts This patient has no known allergies or adverse reactions. Medications Ordered Filled Start Stop Current Ordering Indication Dosage Frequency Signature Comments Components Source Medication Medication Date Date Medication? Clinician (SIG) Name Name TAKE 2021-06 No TABLET BY 2-29 MOUTH IN [...] mg 1-17 tablet 00:00: 00 Keflex 500 2019-0 No 1mg mg capsule -17 00:00: 00 Dose 2019-1 No Unknown 0-01 [...] mg 8-09 rectal 00:00: suppository 00 Stool 2015-0 No 1mg Softener 8- 100 mg 00:00: capsule 00 pantoprazol 2015-0 No 1mg e 20 mg 3-04 tablet,nette 00:00: yed release 00 Immunizations Ordered Immunization Filled Immunization Date Status Commen ts Source Name Name Patrick KIMBERLIID-19 2022-01-08 Completed Vaccine 00:00:00 Patrick COVID-19 2020-09-27 Completed Vaccine 00:00:00 Gabia COVID-19 2020-08-26 [...] Procedure Date / Time Performed Performing Clinician [facility] e [address] Ecg Routine Ecg W/least 12 2017-09-24 00:00:00 Lds W/i r Plan of Care Planned Activity Planned Date Details Comments Source Goal Plan of Care Note [code = 50946-4] Goal Plan of Care Note [code = 23883-0] Goal Plan of Care Note [code = 65412-1] Goal Plan of Care Note [code = 62111-0] Goal Plan of Care Note [code = 72726-8] Goal Plan of Care Note [code = 61311-5] Goal Plan of Care Note [code = 84948-4] Goal Plan of Care Note [code = 83677-3] Goal Plan of Care Note [code = 15091-5] Goal Plan of Care Note [code = 96285-3] Goal Plan of Care Note [code = 77664-8] Goal Plan of Care Note [code = 77974-7] Goal Plan of Care Note [code = 14034-2] Goal Plan of Care Note [code = 48621-1] Goal Plan of Care Note [code = 24251-2] Goal Plan of Care Note [code = 81585-7] Goal Plan of Care Note [code = 29940-7] Goal Plan of Care Note [code = 86015-2] Goal Plan of Care Note [code = 22271-5] Goal Plan of Care Note [code = 99339-0] Goal Plan of Care Note [code = 58748-0] Goal Plan of Care Note [code = 95161-4] Goal Plan of Care Note [code = 78763-5] Goal Plan of Care Note [code = 47125-7] Goal Plan of Care Note [code = 07596-2] Goal Plan of Care Note [code = 46233-4] Goal Plan of Care Note [code = 42784-4] Goal Plan of Care Note [code = 74071-5] Goal Plan of Care Note [code = 12309-6] Encounters Start End Encounter Admission Attending Care Care Encounter Source Date/Time Date/Time Type Type Clinicians Facility Department ID 2022-07-17 2022-07-17 Outpatient [facility] [id number] Henry 15:03:48 15:03:48 Audrey Contreras 2022-07-17 2022-07-17 Outpatient [id number] 00:00:00 00:00:00 Visit [id number] Results Test Description Test Time Test Comments Results Result Comments Source SARS-CoV-2 (COVID-19) by RT-PCR (HIGH RISK) 2020-08-19 00:00 :00 Test Item Value Reference Range Interpretation Comme nts SARS-CoV-2 INTERPRETATION (test code = 07161) NEGATIVE SOURCE (test code = 37130) NOT SPECIFIED SARS-CoV-2 (COVID-19) by RT-PCR (HIGH RISK)2020-08-19 00:00:00 Test Item Value Reference Range Interpretation Comments SARS-CoV-2 INTERPRETATION (test NEGATIVE code = 44257) SOURCE (test code = 41251) NOT SPECIFIED PAP TEST, THINPREP, [id number] 00:00:00 Test Item Value Reference Range Interpretation Comments SOURCE: (test code = Cervical/Endocervical 8001) SLIDES: (test code = 1 8011) LMP: (test code = 8021) 06/2017 SPECIMEN ADEQUACY: (test (NOTE) code = 47826) INTERPRETATION: (test NILM/NO EPITH. code = 41508) ABNORMALITY;SEE BELOW HEALTH EDUCATION DIRECTOR: (test Malek code = 8101) [facility],CT(ASCP) IAC LOCATION: (test code = (NOTE) 50304) CPT: (test code = 8140) (NOTE) PAP TEST, THINPREP, [id number] 00:00:00 Test Item Value Reference Range Interpretation Comments SOURCE: (test code = Cervical/Endocervical 8001) SLIDES: (test code = 1 8011) LMP: (test code = 8021) 06/2017 SPECIMEN ADEQUACY: (test (NOTE) code = 92347) INTERPRETATION: (test NILM/NO EPITH. code = 20893) ABNORMALITY;SEE BELOW HEALTH EDUCATION DIRECTOR: (test Malek code = 8101) [facility],CT(ASCP) IAC LOCATION: (test code = (NOTE) 16849) CPT: (test code = 8140) (NOTE) HPV HIGH RISK WITH GENOTYPE, [id number] 00:00:00 Test Item Value Reference Range Interpretation Comments HPV HIGH RISK INTERP (test code = NEGATIVE 92247) HPV 16 (test code = 77304) NEGATIVE HPV 18 (test code = 50335) NEGATIVE HPV, HR, OTHER GENOTYPES (test code NEGATIVE = 41412) HPV HIGH RISK WITH GENOTYPE, [id number] 00:00:00 Test Item Value Reference Range Interpretation Comments HPV HIGH RISK INTERP (test code = NEGATIVE 15049) HPV 16 (test code = 83407) NEGATIVE HPV 18 (test code = 43876) NEGATIVE HPV, HR, OTHER GENOTYPES (test code NEGATIVE = 59751) Valproic Acid [id number] 08:03:22 Test Item Value Reference Range Interpretation Comments Valproic Acid Level (test code 57.6 ug/mL(g) 50.0-100.0 = Valproic Acid Level) Hemoglobin [id number] 09:36:00 Test Item Value Reference Range Interpretation Comments Hemoglobin A1c (test code 5.0 % 4.8-5.9 No n Diabetic = Hemoglobin A1c) 4.8-5.9%Di abetic <7.0% CT Shoulder w/o Contrast [id number] 16:49:13Patient: BHUMIKA JONES Date/Time01/09/2019 16:14 CDTReason for [...] Adam FSigned (Electronic Signature): 01/09/2019 4:49 pmRPR [id number] 21:33:20 Test Item Value Reference Range Interpretation [...] Expiration Dt) XR Shoulder Complete 2+ Views [id number] 15:41:25Patient: BHUMIKA JONES Date/Time01/07/2019 15:25 CDTReason for [...] CSigned (Electronic Signature): 01/07/2019 3:41 pmThyroid Stimulating [id number] 03:07:04 Test Item Value Reference Range Interpretation Comments TSH (test code = TSH) 9.650 mIU/mL 0.270-4.200 H Lipid [id number] 03:07:03 Test Item Value Reference Range Interpretation [...] LDL/HDL Ratio=L DL Calc/HDL Chol HCG Qualitative [id number] 02:33:13 Test Item Value Reference Range Interpretation Comments HCG, Serum Qual (test code = HCG, Negative Serum Qual) Lot # (test code = Lot #) [id number] Expiration Dt (test code = 2020-04-23 N Expiration Dt) Neg Control (test code = Neg Negative Control) Pos Control (test code = Pos Positive Control) Internal QC (test code = Internal Acceptable QC) Drugs of Abuse Urine [id number] 18:58:11 Test Item Value Reference Range Interpretation [...] (test code = Cannabinoid Screen Ur) Alcohol [id number] 18:47:34 Test Item Value Reference Range Interpretation Comments Ethanol Level (test <0.00 g/dL 0.00-0.01 Intoxica isabel 0.080 g/dL code = Ethanol or more Level) Ethanol Inst (test <0 N code = Ethanol Inst) Comprehensive Metabolic [id number] 18:47:33 Test Item Value Reference Range Interpretation [...] A/G 1.0 ratio N Ratio) Comprehensive Metabolic [id number] 18:47:33 Test Item Value Reference Range Interpretation [...] National Kidney Foundation, http://nkdep.ni h.gov Comprehensive Metabolic [id number] 18:47:33 Test Item Value Reference Range Interpretation [...] ag e have not been validated by [facility] MDRD study and should be interpreted [...] ag e have not been validated by [facility] MDRD study and should be interpreted wit h caution. eGFR R esult Interpretation: eGFR > or = 60 is in the Normal RangeeGF R < 60 may mean kid betzaida diseaseeGFR < 1 5 may mean kidney failure Rang es recommended by the National Kidney Foundation, http://nkdep.ni h.gov Complete Blood Count with [id number] 18:15:23 Test Item Value Reference Range Interpretation [...] code = IPF) 0 % N Automated [id number] 18:15:23 Test Item Value Reference Range Interpretation Comments Neutro Auto (test code = Neutro 42.1 % 36.0-70.0 Auto) Lymph Auto (test code = Lymph Auto) 40.0 % 12.0-44.0 [place] Auto (test code = [place] Auto) 12.2 % 0.0-11.0 H Eos, Auto (test code = Eos, Auto) 4.9 % 0.0-7.0 Basophil Auto (test code = Basophil 0.6 % 0.0-2.0 Auto) Neutro Absolute (test code = Neutro 2.2 x10 1.6-7.4 Absolute) Lymph Absolute (test code = Lymph 2.06 x10 .50-4.60 Absolute) [place] Absolute (test code = [place] .63 x10 .00-1.20 Absolute) Eos Absolute (test code = Eos 0.25 x10 0.00-0.74 Absolute) Baso Absolute (test code = Baso 0.03 x10 0.00-0.21 Absolute) IG [id number] 18:15:23 Test Item Value Reference Range Interpretation Comments IG (test code = IG) 0.2 % 0.0-5.0 IG Abs (test code = IG Abs) 0 x10 N VALPROIC [id number] 00:00:00 Test Item Value Reference Range Interpretation Comments VALPROIC ACID (test code = 3025) 69.8 UG/ML VALPROIC [id number] 00:00:00 Test Item Value Reference Range Interpretation Comments VALPROIC ACID (test code = 3025) 69.8 UG/ML URINE CULTURE, NO [id number] 00:00:00 Test Item Value Reference Range Interpretation Comments URINE CULTURE, NO SPECIMEN NUMBER: SENS (test code = 74959993 13386) URINE CULTURE, NO [id number] 00:00:00 Test Item Value Reference Range Interpretation Comments URINE CULTURE, NO SPECIMEN NUMBER: SENS (test code = 08126743 69330) [id number] 00:00:00 Test Item Value Reference Range Interpretation Comments TRANSFERRIN (test code = 4936) 269 MG/DL [id number] 00:00:00 Test Item Value Reference Range Interpretation Comments TRANSFERRIN (test code = 4936) 269 MG/DL FOLIC [id number] 00:00:00 Test Item Value Reference Range Interpretation Comments FOLIC ACID (test code = 2695) 5.4 UG/L FOLIC [id number] 00:00:00 Test Item Value Reference Range Interpretation Comments FOLIC ACID (test code = 2695) 5.4 UG/L IRON BINDING CAPACITY AND IRON AND % [id number] 00:00:00 Test Item Value Reference Range Interpretation Comments IRON, SERUM (test code = 2222) 42 UG/DL UNSATURATED IBC (test code = 40191) 279 UG/DL CALC TOTAL IBC (test code = 2077) 321 UG/DL CALC % IRON SAT (test code = 2079) 13 % IRON BINDING CAPACITY AND IRON AND % [id number] 00:00:00 Test Item Value Reference Range Interpretation Comments IRON, SERUM (test code = 2222) 42 UG/DL UNSATURATED IBC (test code = 47725) 279 UG/DL CALC TOTAL IBC (test code = 2077) 321 UG/DL CALC % IRON SAT (test code = 2079) 13 % [id number] 00:00:00 Test Item Value Reference Range Interpretation Comments FERRITIN (test code = 2075) 15 NG/ML [id number] 00:00:00 Test Item Value Reference Range Interpretation Comments FERRITIN (test code = 2075) 15 NG/ML CULTURE, URINE [ADDED]2018-06-12 00:00:00 Test Item Value Reference Range Interpretation Comments CULTURE, URINE (test SPECIMEN NUMBER: code = 63202) [id number] CULTURE, URINE [ADDED]2018-06-12 00:00:00 Test Item Value Reference Range Interpretation Comments CULTURE, URINE (test SPECIMEN NUMBER: code = 28635) [id number] COMPREHENSIVE METABOLIC [id number] 00:00:00 Test Item Value Reference Range Interpretation Comments GLUCOSE (test code = 2217) 86 MG/DL BUN (test code = 2208) 16 MG/DL CREATININE (test code = 2214) 0.45 MG/DL eGFR AMER. (test code 141 ML/MIN/1.73 = 87271) eGFR NON- AMER. (test 122 ML/MIN/1.73 code = 88630) CALC BUN/CREAT (test code = 36 RATIO [...] code = 2219) 17 U/L COMPREHENSIVE METABOLIC [id number] 00:00:00 Test Item Value Reference Range Interpretation Comments GLUCOSE (test code = 2217) 86 MG/DL BUN (test code = 2208) 16 MG/DL CREATININE (test code = 2214) 0.45 MG/DL eGFR AMER. (test code 141 ML/MIN/1.73 = 93377) eGFR NON- AMER. (test 122 ML/MIN/1.73 code = 55282) CALC BUN/CREAT (test code = 36 RATIO [...] (test code = 2219) 17 U/L VALPROIC [id number] 00:00:00 Test Item Value Reference Range Interpretation Comments VALPROIC ACID (test code = 3025) 100.9 UG/ML VALPROIC [id number] 00:00:00 Test Item Value Reference Range Interpretation Comments VALPROIC ACID (test code = 3025) 100.9 UG/ML CBC W/AUTO [id number] 00:00:00 Test Item Value Reference Range Interpretation [...] code = 1015) 184 K/UL CBC W/AUTO [id number] 00:00:00 Test Item Value Reference Range Interpretation [...] code = 1015) 184 K/UL CBC W/AUTO [id number] 00:00:00 Test Item Value Reference Range Interpretation [...] = 1015) 184 K/UL PAP TEST, THINPREP, [id number] 00:00:00 Test Item Value Reference Range Interpretation Comments SOURCE: (test code = Cervical/Endocervical 8001) SLIDES: (test code = 1 8011) LMP: (test code = 03/2017 8021) SPECIMEN ADEQUACY: (NOTE) (test code = 78251) INTERPRETATION: (test NO EPITHELIAL code = 24550) ABNORMALITY SEE BELOW HEALTH EDUCATION DIRECTOR: Santi Elizondo, (test code = 8101) CT(ASCP)IAC LOCATION: (test code (NOTE) = 58921) CPT: (test code = (NOTE) 8140) PAP TEST, THINPREP, [id number] 00:00:00 Test Item Value Reference Range Interpretation Comments SOURCE: (test code = Cervical/Endocervical 8001) SLIDES: (test code = 1 8011) LMP: (test code = 03/2017 8021) SPECIMEN ADEQUACY: (NOTE) (test code = 82049) INTERPRETATION: (test NO EPITHELIAL code = 54462) ABNORMALITY SEE BELOW HEALTH EDUCATION DIRECTOR: Santi Elizondo, (test code = 8101) CT(ASCP)IAC LOCATION: (test code (NOTE) = 25161) CPT: (test code = (NOTE) 8140) HPV HIGH RISK WITH GENOTYPE, [id number] 00:00:00 Test Item Value Reference Range Interpretation Comments HPV HIGH RISK INTERP (test code = NEGATIVE 61275) HPV 16 (test code = 29366) NEGATIVE HPV 18 (test code = 57352) NEGATIVE HPV, HR, OTHER GENOTYPES (test code NEGATIVE = 93565) HPV HIGH RISK WITH GENOTYPE, [id number] 00:00:00 Test Item Value Reference Range Interpretation Comments HPV HIGH RISK INTERP (test code = NEGATIVE 96540) HPV 16 (test code = 46162) NEGATIVE HPV 18 (test code = 93696) NEGATIVE HPV, HR, OTHER GENOTYPES (test code NEGATIVE = 36992) GC AND CHLAMYDIA AMPLIFIED, [id number] 00:00:00 Test Item Value Reference Range Interpretation Comments GONORRHEA, TMA (test code = 75316) NEGATIVE CHLAMYDIA, TMA (test code = 41313) NEGATIVE HIV AB/AG COMBO RFLX [id number] 00:00:00 Test Item Value Reference Range Interpretation Comments HIV 1/2 4TH GEN, RFLX CONF (test NON-REACTIVE code = 3514) GC AND CHLAMYDIA AMPLIFIED, [id number] 00:00:00 Test Item Value Reference Range Interpretation Comments GONORRHEA, TMA (test code = 86753) NEGATIVE CHLAMYDIA, TMA (test code = 04059) NEGATIVE HIV AB/AG COMBO RFLX [id number] 00:00:00 Test Item Value Reference Range Interpretation Comments HIV 1/2 4TH GEN, RFLX CONF (test NON-REACTIVE code = 3514) HEMOGLOBIN [id number] 00:00:00 Test Item Value Reference Range Interpretation Comments HEMOGLOBIN A1c (test code = 93703) 5.2 % HEMOGLOBIN [id number] 00:00:00 Test Item Value Reference Range Interpretation Comments HEMOGLOBIN A1c (test code = 36663) 5.2 % HEMOGLOBIN [id number] 00:00:00 Test Item Value Reference Range Interpretation Comments HEMOGLOBIN A1c (test code = 29907) 5.2 % [id number] 00:00:00 Test Item Value Reference Range Interpretation Comments TSH (test code = 2821) 2.020 UIU/ML [id number] 00:00:00 Test Item Value Reference Range Interpretation Comments TSH (test code = 2821) 2.020 UIU/ML [id number] 00:00:00 Test Item Value Reference Range Interpretation Comments TSH (test code = 2821) 2.020 UIU/ML COMPREHENSIVE METABOLIC [id number] 00:00:00 Test Item Value Reference Range Interpretation Comments GLUCOSE (test code = 2217) 90 MG/DL BUN (test code = 2208) 21 MG/DL CREATININE (test code = 2214) 0.42 MG/DL eGFR AMER. (test code 145 ML/MIN/1.73 = 12822) eGFR NON- AMER. (test 126 ML/MIN/1.73 code = 84957) CALC BUN/CREAT (test code = 50 RATIO 2235) SODIUM (test code = 2231) 139 MEQ/L POTASSIUM (test code = 2228) 4.0 MEQ/L CHLORIDE (test code = 2215) 99 MEQ/L CARBON DIOXIDE (test code = 24 MEQ/L 2206) CALCIUM (test code = 2209) 9.3 MG/DL PROTEIN, TOTAL (test code = 7.1 G/DL 2228) ALBUMIN (test code = 2201) 3.7 G/DL CALC GLOBULIN (test code = 3.4 G/DL 2240) CALC A/G RATIO (test code = 1.1 RATIO 2234) BILIRUBIN, TOTAL (test code = 0.1 MG/DL 220) ALKALINE PHOSPHATASE (test 54 U/L code = 2204) AST (test code = 2218) 11 U/L ALT (test code = 2219) <5 U/L COMPREHENSIVE METABOLIC [id number] 00:00:00 Test Item Value Reference Range Interpretation Comments GLUCOSE (test code = 2217) 90 MG/DL BUN (test code = 2208) 21 MG/DL CREATININE (test code = 2214) 0.42 MG/DL eGFR AMER. (test code 145 ML/MIN/1.73 = 02102) eGFR NON- AMER. (test 126 ML/MIN/1.73 code = 50628) CALC BUN/CREAT (test code = 50 RATIO [...] RATIO 2233) BILIRUBIN, TOTAL (test code = 0.1 MG/DL 2206) ALKALINE PHOSPHATASE (test 54 U/L code = 2204) AST (test code = 2218) 11 U/L ALT (test code = 2219) <5 U/L LIPID [id number] 00:00:00 Test Item Value Reference Range Interpretation Comments CHOLESTEROL (test code = 2210) 186 MG/DL TRIGLYCERIDES (test code = 2232) 131 MG/DL HDL CHOLESTEROL (test code = 2220) 67 MG/DL CALC LDL CHOL (test code = 2237) 93 MG/DL RISK RATIO LDL/HDL (test code = 1.39 RATIO 2238) LIPID [id number] 00:00:00 Test Item Value Reference Range Interpretation Comments CHOLESTEROL (test code = 2210) 186 MG/DL TRIGLYCERIDES (test code = 2232) 131 MG/DL HDL CHOLESTEROL (test code = 2220) 67 MG/DL CALC LDL CHOL (test code = 2237) 93 MG/DL RISK RATIO LDL/HDL (test code = 1.39 RATIO 2238) CBC W/AUTO [id number] 00:00:00 Test Item Value Reference Range Interpretation [...] code = 1015) 152 K/UL CBC W/AUTO [id number] 00:00:00 Test Item Value Reference Range Interpretation [...] code = 1015) 152 K/UL CBC W/AUTO [id number] 00:00:00 Test Item Value Reference Range Interpretation [...]
[2022-08-01 07:58] LABS: Hematocrit 31.1 % (36.0-45.0); Lymphocytes % 32.2 % (15.3-44.8); MCV 86.5 fL (80-100); RBC Red Blood Cell Count 3.59 M/uL (3.86-4.86)
[2022-08-01 08:20] LABS: Potassium 3.9 mmol/L (3.5-5.1); Troponin High Sensitivity 7.4 pg/mL (<58.9)
--- NOTE | 2022-08-01 08:21 | RAD REPORT ---
EXAM DESCRIPTION: RAD - Chest Single View - 08/01/2022 7:38 am CLINICAL HISTORY: Chest pain COMPARISON: 01/31/2019 and 2018 TECHNIQUE: AP portable chest image was obtained . FINDINGS: Underinflation of the lungs and patient rotation slightly limit evaluation. Subtle retroca rdiac hazy opacity could reflect atelectasis or early pneumonia. Right lung otherwise clear. Heart an d vasculature are normal. No pleural effusion and no pneumothorax. No gross bony abnormality seen. IMPRESSION: Subtle retrocardiac hazy opacity could reflect atelectasis or early pneumonia.
[2022-08-01] MEDS ORDERED: NA CHLORIDE 0.9% 500 ML ONE (09:21)
--- NOTE | 2022-08-01 09:56 | ER ---
Nurse's Notes [facility] Name: Sidra Hodges Age: 47 yrs Sex: Female : 1975 Arrival Date: 08/01/2022 Time: 07:23 Bed 13 Private MD: Diagnosis: Hyponatremia;Palpitations;Essential (primary) hypertension Presentation: 08/01 07:27 Chief complaint: EMS states: patient called EMS 3 times last night for different ko1 reasons that did not require transport to ER. The [facility] dept was then called for abuse of 911 services, the patient then complained of chest pain and was transported to the ER. 12 lead ekg was obtained in route which was unremarkable.. Coronavirus screen: At this time, the client does not indicate any symptoms associated with coronavirus-19. Ebola Screen: No symptoms or risks identified at this time. Initial Sepsis Screen: Does the patient meet any 2 criteria? No. Patient's initial sepsis screen is negative. Does the patient have a suspected source of infection? No. Patient's initial sepsis screen is negative. Risk Assessment: Do you want to hurt yourself or someone else? Patient reports no desire to harm self or others. Onset of symptoms was August 01, 2022. 07:27 Method Of Arrival: EMS: [facility] ko1 07:27 Acuity: CARMITA 4 ko1 Triage Assessment: 07:31 General: Appears in no apparent distress. comfortable, Behavior is calm, cooperative, ko1 appropriate for age. Pain: Denies pain. Historical: - Allergies: 07:31 CARBAMAZEPINE DERIVATIVES; ko1 07:31 Depakote; ko1 07:31 Tegretol; ko1 - PMHx: 07:31 ADD/ADHD; Anxiety; Bipolar disorder; Chronic pain; hemorrhoids; Seizures; ko1 - PSHx: 07:31 R LEG SX; ko1 - Immunization history:: Adult Immunizations unknown. - Social history:: Smoking status: Patient denies any tobacco usage or history of. Screenin:09 [facility] [place] ED Fall Risk Assessment (Adult) History of falling in the last 3 months, ko1 including since admission No falls in past 3 months (0 pts) Confusion or Disorientation No (0 pts) Intoxicated or Sedated No (0 pts) Impaired Gait Yes (1 pt) Mobility Assist Device Used Yes (1 pt) Altered Elimination No (0 pt) Score/Fall Risk Level 0 - 2 = Low Risk Oriented to surroundings, Maintained a safe environment, Educated pt \T\ family on fall prevention, incl call for assistance when getting out of bed, Assessed \T\ reinforced patient's understanding of fall precautions, Provided non-skid footwear, Hourly rounding (assess needs \T\ fall precautionary measures) done, Used ambulatory aids as needed (educated on \T\ assisted with), Used gait belt as appropriate. Abuse screen: Denies threats or abuse. Denies injuries from another. Nutritional screening: No deficits noted. Tuberculosis screening: No symptoms or risk factors identified. Assessment: 08:09 General: Appears in no apparent distress. comfortable, Behavior is cooperative. Pain: ko1 Denies pain. Neuro: No deficits noted. Cardiovascular: No deficits noted. Respiratory: No deficits noted. GI: No deficits noted. : No deficits noted. EENT: No deficits noted. Derm: No deficits noted. Musculoskeletal: No deficits noted. 08:15 Reassessment: Informed patient to not eat or drink until after all tests were complete. ko1 Removed a jar of peanuts from under the patients bra and placed that and a bottle of water on the counter. Patient became angry, combative and wanted to leave. Maggy Ibrahim RN spoke with patient and patient agreed to stay. 10:20 Reassessment: removed patients IV, informed of discharge, patient not leaving room. ko1 Informed charge nurse. Patient is out of room at nurses station attempting to talk with PA. Informed patient to return to room, she wants to speak with physician. Vital Signs: 07:27 BP 146 / 78; Pulse 70; Resp 16; Temp 97.4; Pulse Ox 99% ; ko1 09:29 BP 152 / 84; Pulse 70; Resp 16; Pulse Ox 99% ; ko1 ED Course: 07:23 Patient arrived in ED. ms3 07:23 Ramiro Piña DO is Attending Physician. ms3 07:27 Mi Trinh, GERONIMO is Primary Nurse. ko1 07:31 Triage completed. ko1 07:31 Arm band placed on left wrist. ko1 07:39 XRAY Chest (1 view) In Process Unspecified. EDMS 08:09 Patient has correct armband on for positive identification. Fall risk band placed. ko1 Placed in gown. Bed in low position. Side rails up X2. Client placed on continuous cardiac and pulse oximetry monitoring. NIBP monitoring applied. court recording monitor on. Warm blanket given. 08:09 No provider procedures requiring assistance completed. Maintain EMS IV. Dressing ko1 intact. Good blood return noted. Site clean \T\ dry. Gauge \T\ site: 20g right forearm. 09:53 Miguel Meza DO is Referral Physician. ms3 09:58 IV discontinued, intact, bleeding controlled, No redness/swelling at site. Pressure ko1 dressing applied. 10:35 Miguel Meza DO is Referral Physician. ms3 Administered Medications: 09:19 Drug: NS 0.9% 500 ml Route: IV; Rate: 1000 ml/hr; Site: right forearm; ko1 10:45 Drug: Ativan (LORazepam) 0.5 mg Route: PO; ko1 Medication: 08:09 VIS not applicable for this client. ko1 Outcome: 09:55 Discharge ordered by MD. ms3 09:58 Discharged to home ambulatory. ko1 09:58 Condition: stable 09:58 Discharge instructions given to patient, Instructed on discharge instructions, follow up and referral plans. Demonstrated understanding of instructions, follow-up care. 10:36 Discharge ordered by MD. ms3 11:09 Patient left the ED. aa5 Signatures: Dispatcher [employer] EDMS Maggy Beasley, RN RN aa5 Ramiro Piña DO DO ms3 Mi Trinh RN RN ko1
--- NOTE | 2022-08-01 09:56 | EDPHYS ---
Physician Documentation [facility] Name: Sidra Hodges Age: 47 yrs Sex: Female : 1975 Arrival Date: 08/01/2022 Time: 07:23 Bed 13 Private MD: ED Physician Ramiro Piña HPI: 08/01 08:10 This 47 yrs old Female presents to ER via EMS with complaints of anxiety/ ms3 palpitations. 08:10 47-year-old female with past medical history of ADD/ADHD, anxiety, bipolar disorder, ms3 chronic pain, epilepsy presents via EMS for anxiety. EMS states patient has called them 3 times over the night for anxiety. The pad cutter's department was contacted for possible 911 abuse and patient then began complaining of palpitations. On HPI patient states she is having anxiety and was unable to sleep last night. Patient states she is also having chest palpitations. Patient denies pain at this time. Patient denies alleviating or inciting factors.. Historical: - Allergies: 07:31 CARBAMAZEPINE DERIVATIVES; ko1 07:31 Depakote; ko1 07:31 Tegretol; ko1 - PMHx: 07:31 ADD/ADHD; Anxiety; Bipolar disorder; Chronic pain; hemorrhoids; Seizures; ko1 - PSHx: 07:31 R LEG SX; ko1 - Immunization history:: Adult Immunizations unknown. - Social history:: Smoking status: Patient denies any tobacco usage or history of. ROS: 08:10 Constitutional: Negative for fever, and chills. Neck: Negative for injury, pain, and ms3 swelling. 08:10 Respiratory: Negative for shortness of breath, cough, wheezing, and pleuritic chest pain, Abdomen/GI: Negative for abdominal pain, nausea, vomiting, diarrhea, and constipation, MS/Extremity: Negative for injury and deformity, Skin: Negative for injury, rash, and discoloration. 08:10 Cardiovascular: Positive for palpitations. 08:10 All other systems are negative. Exam: 08:10 Constitutional: This is a well developed, well nourished patient who is awake, alert, ms3 and in no acute distress. Head/Face: Normocephalic, atraumatic. Neck: Trachea midline, no cervical lymphadenopathy. Supple, full range of motion without nuchal rigidity, or vertebral point tenderness. No Meningismus. Chest/axilla: Normal chest wall appearance and motion. Nontender with no deformity. 08:10 Cardiovascular: Regular rate and rhythm with a normal S1 and S2. No gallops, murmurs, or rubs. Normal PMI, no JVD. No pulse deficits. Respiratory: Lungs have equal breath sounds bilaterally, clear to auscultation and percussion. No rales, rhonchi or wheezes noted. No increased work of breathing, no retractions or nasal flaring. Abdomen/GI: Soft, non-tender, with normal bowel sounds. No distension or tympany. No guarding or rebound. No evidence of tenderness throughout. Skin: Warm, dry with normal turgor. Normal color with no rashes, no lesions, and no evidence of cellulitis. MS/ Extremity: Pulses equal, no cyanosis. Neurovascular intact. Full, normal range of motion. 08:18 ECG was reviewed by the Attending Physician. ms3 Vital Signs: 07:27 BP 146 / 78; Pulse 70; Resp 16; Temp 97.4; Pulse Ox 99% ; ko1 09:29 BP 152 / 84; Pulse 70; Resp 16; Pulse Ox 99% ; ko1 MDM: 07:23 Patient medically screened. ms3 08:10 Differential diagnosis: arrythmia, Anxiety vs Electrolyte abnormality. ms3 10:36 Data reviewed: vital signs, nurses notes, lab test result(s), EKG, radiologic studies, ms3 and as a result, I will discharge patient. Consideration of Admission/Observation Escalation of care including admission/observation considered. Troponin negative, EKG without ischemia. Independent interpretation of the following test(s) in the Emergency Department EKG: See my EKG interpretation above X-Ray: My interpretation is Chest x-ray image reviewedno pneumothorax or pneumonia. No widened mediastinum. 10:36 Counseling: I had a detailed discussion with the patient and/or guardian regarding: the ms3 historical points, exam findings, and any diagnostic results supporting the discharge/admit diagnosis, lab results, radiology results, the need for outpatient follow up, to return to the emergency department if symptoms worsen or persist or if there are any questions or concerns that arise at home. ED course: Discussed labs, EKG, chest x-ray findings with patient. Patient without cough, or fever at this time, white blood count normal. Patient to follow-up primary care physician in 2 to 3 days as discussed for reevaluation of sodium. Patient or stands and agrees to plan. All questions were answered. On reevaluation patient is alert and oriented x4, no apparent distress, nontoxic, ambulatory emergency department as being full sentences. 08/01 07:27 Order name: Basic Metabolic Panel; Complete Time: 08:32 ms3 08/01 07:27 Order name: CBC with Diff; Complete Time: 08:32 ms3 08/01 07:27 Order name: Troponin HS; Complete Time: 08:32 ms3 08/01 07:27 Order name: XRAY Chest (1 view); Complete Time: 08:32 ms3 08/01 07:27 Order name: EKG; Complete Time: 07:28 ms3 08/01 07:27 Order name: Cardiac monitoring; Complete Time: 07:32 ms3 08/01 07:27 Order name: EKG - Nurse/Tech; Complete Time: 07:58 ms3 08/01 07:27 Order name: IV Saline Lock; Complete Time: 07:32 ms3 08/01 07:27 Order name: Labs collected and sent; Complete Time: 07:32 ms3 08/01 07:27 Order name: O2 Per Protocol; Complete Time: 07:32 ms3 08/01 07:27 Order name: O2 Sat Monitoring; Complete Time: 07:32 ms3 EC:18 Rate is 70 beats/min. Rhythm is regular. QRS Bryce is Normal. PA interval is normal. QRS ms3 interval is normal. Clinical impression: NSR w/ Non-specific ST/T Changes. Interpreted by me. Reviewed by me. Administered Medications: 09:19 Drug: NS 0.9% 500 ml Route: IV; Rate: 1000 ml/hr; Site: right forearm; ko1 10:45 Drug: Ativan (LORazepam) 0.5 mg Route: PO; ko1 Disposition Summary: 08/01/22 10:36 Discharge Ordered Location: Home(08/01/22 10:36) ms3 Condition: Stable(08/01/22 10:36) ms3 Diagnosis - Hyponatremia ms3 - Palpitations(08/01/22 10:36) ms3 - Essential (primary) hypertension ms3 Followup: ms3 - With: Miguel Meza, DO - When: 2 - 3 days - Reason: Recheck today's complaints Discharge Instructions: - Discharge Summary Sheet ms3 - Hypertension, Adult ms3 - Palpitations ms3 Forms: - Medication Reconciliation Form ms3 - Thank You Letter ms3 - Antibiotic Education ms3 - Prescription Opioid Use ms3 Signatures: Dispatcher [employer] EDMS Ramiro Piña DO DO ms3 Mi Trinh RN RN ko1 Corrections: (The following items were deleted from the chart) 10:08 09:55 Home ms3 ko1 10: 09:55 Stable ms3 ko1 10: 09:55 Palpitations ms3 ko1 10: 09:55 Hyponatremia ms3 ko1 19:06 10:36 ED course: Discussed labs, EKG, chest x-ray findings with patient. Patient ms3 without cough, or fever at this time.. ms3
[2022-08-01] MEDS ORDERED: LORAZEPAM 0.5 MG TABLET ONE (10:48)
[2022-08-01 11:19] VITALS: TEMP 97.4; O2SAT 99
[2022-08-01 11:21] VITALS: BP 152/84
--- NOTE | 2022-08-02 07:58 | EKG ---
Test Date: 2022-08-01 Test Time: 07:55:02 Office Director: MEGHAN MEASUREMENT RESULTS: Intervals: Rate: 70 AK: 156 QRSD: 92 QT: 304 QTc: 328 [place]: P: 34 AK: 156 QRS: 40 T: 129 INTERPRETIVE STATEMENTS: Normal sinus rhythm Nonspecific T wave abnormality Abnormal ECG Compared to ECG 03/25/2020 13:14:09 Prolonged QT interval no longer present T-wave abnormality still present Electronically Signed On 08-02-22 07:54:56 [employer] E[employer] MANAGER by Magdy Avelar
== END 2022-08-01 11:09 | disposition home or self-care (01) ==
LOC: ER 07:13
DX: E87.1 Hypo-osmolality and hyponatremia (principal); R00.2 Palpitations; I10 Essential (primary) hypertension
CPT/HCPCS: 36415; 71045; 80048; 84484; 85025; 93005; J7040

== ENCOUNTER 2022-08-05 12:12 | Emergency (ER) | payer SELFPAY ==
--- OUTSIDE RECORDS SUMMARY | 2022-08-05 12:15 | XMS REPORT | Continuity of Care Document ---
:1975 Author Organization [facility] t Address [address] [place] [address] Care Team Providers Name Role Phone Swapnil Fung Primary Care Physician [phone] Problems This patient has no known problems. [...] Procedure Date / Time Performed Performing Clinician [facility] e [address] Ecg Routine Ecg W/least 12 2017-09-24 00:00:00 Lds W/i r Plan of Care Planned Activity Planned Date Details Comments Source Goal Plan of Care Note [code = 35071-6] Goal Plan of Care Note [code = 12755-9] Goal Plan of Care Note [code = 99317-9] Goal Plan of Care Note [code = 39724-9] Goal Plan of Care Note [code = 83432-4] Goal Plan of Care Note [code = 72609-2] Goal Plan of Care Note [code = 27525-4] Goal Plan of Care Note [code = 32269-5] Goal Plan of Care Note [code = 50398-1] Goal Plan of Care Note [code = 74419-8] Goal Plan of Care Note [code = 04235-7] Goal Plan of Care Note [code = 71921-4] Goal Plan of Care Note [code = 71236-7] Goal Plan of Care Note [code = 94008-6] Goal Plan of Care Note [code = 02093-2] Goal Plan of Care Note [code = 54163-9] Goal Plan of Care Note [code = 83493-6] Goal Plan of Care Note [code = 05646-3] Goal Plan of Care Note [code = 69056-4] Goal Plan of Care Note [code = 01850-1] Goal Plan of Care Note [code = 20215-8] Goal Plan of Care Note [code = 38703-9] Goal Plan of Care Note [code = 11883-1] Goal Plan of Care Note [code = 33489-1] Goal Plan of Care Note [code = 57866-3] Goal Plan of Care Note [code = 62479-4] Goal Plan of Care Note [code = 98023-8] Goal Plan of Care Note [code = 03773-0] Goal Plan of Care Note [code = 14676-8] Encounters Start End Encounter Admission Attending Care Care Encounter Source Date/Time Date/Time Type Type Clinicians Facility Department ID 2022-07-17 2022-07-17 Outpatient [facility] [id number] Henry 15:03:48 15:03:48 Audrey Contreras 2022-07-17 2022-07-17 Outpatient [id number] 00:00:00 00:00:00 Visit [id number] Results Test Description Test Time Test Comments Results Result Comments Source SARS-CoV-2 (COVID-19) by RT-PCR (HIGH RISK) 2020-08-19 00:00 :00 Test Item Value Reference Range Interpretation Comme nts SARS-CoV-2 INTERPRETATION (test code = 76900) NEGATIVE SOURCE (test code = 76587) NOT SPECIFIED SARS-CoV-2 (COVID-19) by RT-PCR (HIGH RISK)2020-08-19 00:00:00 Test Item Value Reference Range Interpretation Comments SARS-CoV-2 INTERPRETATION (test NEGATIVE code = 37781) SOURCE (test code = 16601) NOT SPECIFIED PAP TEST, THINPREP, [id number] 00:00:00 Test Item Value Reference Range Interpretation Comments SOURCE: (test code = Cervical/Endocervical 8001) SLIDES: (test code = 1 8011) LMP: (test code = 8021) 06/2017 SPECIMEN ADEQUACY: (test (NOTE) code = 59556) INTERPRETATION: (test NILM/NO EPITH. code = 63526) ABNORMALITY;SEE BELOW LOGGING CREW SUPERVISOR: (test Malek code = 8101) [facility],CT(ASCP) IAC LOCATION: (test code = (NOTE) 64525) CPT: (test code = 8140) (NOTE) PAP TEST, THINPREP, [id number] 00:00:00 Test Item Value Reference Range Interpretation Comments SOURCE: (test code = Cervical/Endocervical 8001) SLIDES: (test code = 1 8011) LMP: (test code = 8021) 06/2017 SPECIMEN ADEQUACY: (test (NOTE) code = 09533) INTERPRETATION: (test NILM/NO EPITH. code = 71749) ABNORMALITY;SEE BELOW LOGGING CREW SUPERVISOR: (test Malek code = 8101) [facility],CT(ASCP) IAC LOCATION: (test code = (NOTE) 72123) CPT: (test code = 8140) (NOTE) HPV HIGH RISK WITH GENOTYPE, [id number] 00:00:00 Test Item Value Reference Range Interpretation Comments HPV HIGH RISK INTERP (test code = NEGATIVE 98997) HPV 16 (test code = 46710) NEGATIVE HPV 18 (test code = 86115) NEGATIVE HPV, HR, OTHER GENOTYPES (test code NEGATIVE = 68315) HPV HIGH RISK WITH GENOTYPE, [id number] 00:00:00 Test Item Value Reference Range Interpretation Comments HPV HIGH RISK INTERP (test code = NEGATIVE 25956) HPV 16 (test code = 05407) NEGATIVE HPV 18 (test code = 32755) NEGATIVE HPV, HR, OTHER GENOTYPES (test code NEGATIVE = 71512) Valproic Acid [id number] 08:03:22 Test Item Value Reference Range Interpretation Comments Valproic Acid Level (test code 57.6 ug/mL(g) 50.0-100.0 = Valproic Acid Level) Hemoglobin [id number] 09:36:00 Test Item Value Reference Range Interpretation Comments Hemoglobin A1c (test code 5.0 % 4.8-5.9 No n Diabetic = Hemoglobin A1c) 4.8-5.9%Di abetic <7.0% CT Shoulder w/o Contrast [id number] 16:49:13Patient: BHUMIKA JONES Date/Time01/09/2019 16:14 CDTReason for [...] Adam FSigned (Electronic Signature): 01/09/2019 4:49 pmRPR [id number] 21:33:20 Test Item Value Reference Range Interpretation [...] Expiration Dt) XR Shoulder Complete 2+ Views [id number] 15:41:25Patient: BHUMIKA JONES Date/Time01/07/2019 15:25 CDTReason for [...] CSigned (Electronic Signature): 01/07/2019 3:41 pmThyroid Stimulating [id number] 03:07:04 Test Item Value Reference Range Interpretation Comments TSH (test code = TSH) 9.650 mIU/mL 0.270-4.200 H Lipid [id number] 03:07:03 Test Item Value Reference Range Interpretation Comments Cholesterol Total 199 mg/dL 0-200 RISK OF HE ART (test code = DISEASEPublishe d by Cholesterol Total) [place] [employer] [place] Optimal Borderl ine [...] LDL/HDL Ratio=L DL Calc/HDL Chol HCG Qualitative [id number] 02:33:13 Test Item Value Reference Range Interpretation Comments HCG, Serum Qual (test code = HCG, Negative Serum Qual) Lot # (test code = Lot #) [id number] N Expiration Dt (test code = 2020-04-23 N Expiration Dt) Neg Control (test code = Neg Negative Control) Pos Control (test code = Pos Positive Control) Internal QC (test code = Internal Acceptable QC) Drugs of Abuse Urine [id number] 18:58:11 Test Item Value Reference Range Interpretation [...] (test code = Cannabinoid Screen Ur) Alcohol [id number] 18:47:34 Test Item Value Reference Range Interpretation Comments Ethanol Level (test <0.00 g/dL 0.00-0.01 Intoxica isabel 0.080 g/dL code = Ethanol or more Level) Ethanol Inst (test <0 N code = Ethanol Inst) Comprehensive Metabolic [id number] 18:47:33 Test Item Value Reference Range Interpretation [...] A/G 1.0 ratio N Ratio) Comprehensive Metabolic [id number] 18:47:33 Test Item Value Reference Range Interpretation [...] National Kidney Foundation, http://nkdep.ni h.gov Comprehensive Metabolic [id number] 18:47:33 Test Item Value Reference Range Interpretation [...] e have not been validated by [facility] MDRD study and should be interpreted wit [...] e have not been validated by [facility] MDRD study and should be interpreted wit h caution. eGFR R esult Interpretation: eGFR > or = 60 is in the Normal RangeeGF R < 60 may mean kid betzaida diseaseeGFR < 1 5 may mean kidney failure Rang es recommended by the National Kidney Foundation, http://nkdep.ni h.gov Complete Blood Count with [id number] 18:15:23 Test Item Value Reference Range Interpretation [...] code = IPF) 0 % N Automated [id number] 18:15:23 Test Item Value Reference Range Interpretation Comments Neutro Auto (test code = Neutro 42.1 % 36.0-70.0 Auto) Lymph Auto (test code = Lymph Auto) 40.0 % 12.0-44.0 Butts Auto (test code = Butts Auto) 12.2 % 0.0-11.0 H Eos, Auto (test code = Eos, Auto) 4.9 % 0.0-7.0 Basophil Auto (test code = Basophil 0.6 % 0.0-2.0 Auto) Neutro Absolute (test code = Neutro 2.2 x10 1.6-7.4 Absolute) Lymph Absolute (test code = Lymph 2.06 x10 .50-4.60 Absolute) Butts Absolute (test code = Butts .63 x10 .00-1.20 Absolute) Eos Absolute (test code = Eos 0.25 x10 0.00-0.74 Absolute) Baso Absolute (test code = Baso 0.03 x10 0.00-0.21 Absolute) IG [id number] 18:15:23 Test Item Value Reference Range Interpretation Comments IG (test code = IG) 0.2 % 0.0-5.0 IG Abs (test code = IG Abs) 0 x10 N VALPROIC [id number] 00:00:00 Test Item Value Reference Range Interpretation Comments VALPROIC ACID (test code = 3025) 69.8 UG/ML VALPROIC [id number] 00:00:00 Test Item Value Reference Range Interpretation Comments VALPROIC ACID (test code = 3025) 69.8 UG/ML URINE CULTURE, NO [id number] 00:00:00 Test Item Value Reference Range Interpretation Comments URINE CULTURE, NO SPECIMEN NUMBER: SENS (test code = 51235634 02765) URINE CULTURE, NO [id number] 00:00:00 Test Item Value Reference Range Interpretation Comments URINE CULTURE, NO SPECIMEN NUMBER: SENS (test code = [id number] [id number]) [id number] 00:00:00 Test Item Value Reference Range Interpretation Comments TRANSFERRIN (test code = 4936) 269 MG/DL [id number] 00:00:00 Test Item Value Reference Range Interpretation Comments TRANSFERRIN (test code = 4936) 269 MG/DL FOLIC [id number] 00:00:00 Test Item Value Reference Range Interpretation Comments FOLIC ACID (test code = 2695) 5.4 UG/L FOLIC [id number] 00:00:00 Test Item Value Reference Range Interpretation Comments FOLIC ACID (test code = 2695) 5.4 UG/L IRON BINDING CAPACITY AND IRON AND % [id number] 00:00:00 Test Item Value Reference Range Interpretation Comments IRON, SERUM (test code = 2222) 42 UG/DL UNSATURATED IBC (test code = 19918) 279 UG/DL CALC TOTAL IBC (test code = 2077) 321 UG/DL CALC % IRON SAT (test code = 2079) 13 % IRON BINDING CAPACITY AND IRON AND % [id number] 00:00:00 Test Item Value Reference Range Interpretation Comments IRON, SERUM (test code = 2222) 42 UG/DL UNSATURATED IBC (test code = 31317) 279 UG/DL CALC TOTAL IBC (test code = 2077) 321 UG/DL CALC % IRON SAT (test code = 2079) 13 % [id number] 00:00:00 Test Item Value Reference Range Interpretation Comments FERRITIN (test code = 2075) 15 NG/ML [id number] 00:00:00 Test Item Value Reference Range Interpretation Comments FERRITIN (test code = 2075) 15 NG/ML CULTURE, URINE [ADDED]2018-06-12 00:00:00 Test Item Value Reference Range Interpretation Comments CULTURE, URINE (test SPECIMEN NUMBER: code = 25469) [id number] CULTURE, URINE [ADDED]2018-06-12 00:00:00 Test Item Value Reference Range Interpretation Comments CULTURE, URINE (test SPECIMEN NUMBER: code = 99404) [id number] COMPREHENSIVE METABOLIC [id number] 00:00:00 Test Item Value Reference Range Interpretation Comments GLUCOSE (test code = 2217) 86 MG/DL BUN (test code = 2208) 16 MG/DL CREATININE (test code = 2214) 0.45 MG/DL eGFR AMER. (test code 141 ML/MIN/1.73 = 06566) eGFR NON- AMER. (test 122 ML/MIN/1.73 code = 03689) CALC BUN/CREAT (test code = 36 RATIO [...] code = 2219) 17 U/L COMPREHENSIVE METABOLIC [id number] 00:00:00 Test Item Value Reference Range Interpretation Comments GLUCOSE (test code = 2217) 86 MG/DL BUN (test code = 2208) 16 MG/DL CREATININE (test code = 2214) 0.45 MG/DL eGFR AMER. (test code 141 ML/MIN/1.73 = 28377) eGFR NON- AMER. (test 122 ML/MIN/1.73 code = 26275) CALC BUN/CREAT (test code = 36 RATIO [...] (test code = 2219) 17 U/L VALPROIC [id number] 00:00:00 Test Item Value Reference Range Interpretation Comments VALPROIC ACID (test code = 3025) 100.9 UG/ML VALPROIC [id number] 00:00:00 Test Item Value Reference Range Interpretation Comments VALPROIC ACID (test code = 3025) 100.9 UG/ML CBC W/AUTO [id number] 00:00:00 Test Item Value Reference Range Interpretation [...] code = 1015) 184 K/UL CBC W/AUTO [id number] 00:00:00 Test Item Value Reference Range Interpretation [...] code = 1015) 184 K/UL CBC W/AUTO [id number] 00:00:00 Test Item Value Reference Range Interpretation [...] = 1015) 184 K/UL PAP TEST, THINPREP, [id number] 00:00:00 Test Item Value Reference Range Interpretation Comments SOURCE: (test code = Cervical/Endocervical 8001) SLIDES: (test code = 1 8011) LMP: (test code = 03/2017 8021) SPECIMEN ADEQUACY: (NOTE) (test code = 15340) INTERPRETATION: (test NO EPITHELIAL code = 63231) ABNORMALITY SEE BELOW LOGGING CREW SUPERVISOR: Santi Elizondo, (test code = 8101) CT(ASCP)IAC LOCATION: (test code (NOTE) = 16977) CPT: (test code = (NOTE) 8140) PAP TEST, THINPREP, [id number] 00:00:00 Test Item Value Reference Range Interpretation Comments SOURCE: (test code = Cervical/Endocervical 8001) SLIDES: (test code = 1 8011) LMP: (test code = 03/2017 8021) SPECIMEN ADEQUACY: (NOTE) (test code = 86948) INTERPRETATION: (test NO EPITHELIAL code = 96593) ABNORMALITY SEE BELOW LOGGING CREW SUPERVISOR: Santi Elizondo, (test code = 8101) CT(ASCP)IAC LOCATION: (test code (NOTE) = 64616) CPT: (test code = (NOTE) 8140) HPV HIGH RISK WITH GENOTYPE, [id number] 00:00:00 Test Item Value Reference Range Interpretation Comments HPV HIGH RISK INTERP (test code = NEGATIVE 99465) HPV 16 (test code = 63184) NEGATIVE HPV 18 (test code = 78006) NEGATIVE HPV, HR, OTHER GENOTYPES (test code NEGATIVE = 17356) HPV HIGH RISK WITH GENOTYPE, [id number] 00:00:00 Test Item Value Reference Range Interpretation Comments HPV HIGH RISK INTERP (test code = NEGATIVE 64348) HPV 16 (test code = 91996) NEGATIVE HPV 18 (test code = 34796) NEGATIVE HPV, HR, OTHER GENOTYPES (test code NEGATIVE = 69989) GC AND CHLAMYDIA AMPLIFIED, [id number] 00:00:00 Test Item Value Reference Range Interpretation Comments GONORRHEA, TMA (test code = 11630) NEGATIVE CHLAMYDIA, TMA (test code = 04648) NEGATIVE HIV AB/AG COMBO RFLX [id number] 00:00:00 Test Item Value Reference Range Interpretation Comments HIV 1/2 4TH GEN, RFLX CONF (test NON-REACTIVE code = 3514) GC AND CHLAMYDIA AMPLIFIED, [id number] 00:00:00 Test Item Value Reference Range Interpretation Comments GONORRHEA, TMA (test code = 06040) NEGATIVE CHLAMYDIA, TMA (test code = 87696) NEGATIVE HIV AB/AG COMBO RFLX [id number] 00:00:00 Test Item Value Reference Range Interpretation Comments HIV 1/2 4TH GEN, RFLX CONF (test NON-REACTIVE code = 3514) HEMOGLOBIN [id number] 00:00:00 Test Item Value Reference Range Interpretation Comments HEMOGLOBIN A1c (test code = 35653) 5.2 % HEMOGLOBIN [id number] 00:00:00 Test Item Value Reference Range Interpretation Comments HEMOGLOBIN A1c (test code = 10077) 5.2 % HEMOGLOBIN [id number] 00:00:00 Test Item Value Reference Range Interpretation Comments HEMOGLOBIN A1c (test code = 77305) 5.2 % [id number] 00:00:00 Test Item Value Reference Range Interpretation Comments TSH (test code = 2821) 2.020 UIU/ML [id number] 00:00:00 Test Item Value Reference Range Interpretation Comments TSH (test code = 2821) 2.020 UIU/ML [id number] 00:00:00 Test Item Value Reference Range Interpretation Comments TSH (test code = 2821) 2.020 UIU/ML COMPREHENSIVE METABOLIC [id number] 00:00:00 Test Item Value Reference Range Interpretation Comments GLUCOSE (test code = 2217) 90 MG/DL BUN (test code = 2208) 21 MG/DL CREATININE (test code = 2214) 0.42 MG/DL eGFR AMER. (test code 145 ML/MIN/1.73 = 53265) eGFR NON- AMER. (test 126 ML/MIN/1.73 code = 06981) CALC BUN/CREAT (test code = 50 RATIO [...] code = 2219) <5 U/L COMPREHENSIVE METABOLIC [id number] 00:00:00 Test Item Value Reference Range Interpretation Comments GLUCOSE (test code = 2217) 90 MG/DL BUN (test code = 2208) 21 MG/DL CREATININE (test code = 2214) 0.42 MG/DL eGFR AMER. (test code 145 ML/MIN/1.73 = 86650) eGFR NON- AMER. (test 126 ML/MIN/1.73 code = 89106) CALC BUN/CREAT (test code = 50 RATIO [...] (test code = 2219) <5 U/L LIPID [id number] 00:00:00 Test Item Value Reference Range Interpretation Comments CHOLESTEROL (test code = 2210) 186 MG/DL TRIGLYCERIDES (test code = 2232) 131 MG/DL HDL CHOLESTEROL (test code = 2220) 67 MG/DL CALC LDL CHOL (test code = 2237) 93 MG/DL RISK RATIO LDL/HDL (test code = 1.39 RATIO 2238) LIPID [id number] 00:00:00 Test Item Value Reference Range Interpretation Comments CHOLESTEROL (test code = 2210) 186 MG/DL TRIGLYCERIDES (test code = 2232) 131 MG/DL HDL CHOLESTEROL (test code = 2220) 67 MG/DL CALC LDL CHOL (test code = 2237) 93 MG/DL RISK RATIO LDL/HDL (test code = 1.39 RATIO 2238) CBC W/AUTO [id number] 00:00:00 Test Item Value Reference Range Interpretation [...] code = 1015) 152 K/UL CBC W/AUTO [id number] 00:00:00 Test Item Value Reference Range Interpretation [...] code = 1015) 152 K/UL CBC W/AUTO [id number] 00:00:00 Test Item Value Reference Range Interpretation [...]
[2022-08-05] MEDS ORDERED: DIAZEPAM 5 MG TABLET ONE (13:07)
[2022-08-05] MEDS ORDERED: MORPHINE 4 MG/ML SYR ONE (13:07)
--- NOTE | 2022-08-05 13:44 | RAD REPORT ---
EXAM DESCRIPTION: US - Extremity [facility]ous [facility] - 08/05/2022 1:27 pm CLINICAL HISTORY: PAIN Leg swelling and edema. COMPARISON: [facility] dated 12/26/2018 FINDINGS: Left lower extremity venous system was interrogated with Doppler technique. Normal flow, c ompressibility and augmentation was noted. There is no DVT present. IMPRESSION: No evidence of left lower extremity deep venous thrombosis.
--- NOTE | 2022-08-05 14:20 | ER ---
Nurse's Notes [facility] Name: Sidra Hodges Age: 47 yrs Sex: Female : 1975 Arrival Date: 08/05/2022 Time: 12:14 Bed 15 Private MD: Diagnosis: Pain in left foot Presentation: 08/05 12:14 Chief complaint: EMS states: Left foot pain, concerned pain medication is going to give hb her a seizure, threw bottle at EMS. Coronavirus screen: At this time, the client does not indicate any symptoms associated with coronavirus-19. Ebola Screen: No symptoms or risks identified at this time. Initial Sepsis Screen: Does the patient meet any 2 criteria? No. Patient's initial sepsis screen is negative. Does the patient have a suspected source of infection? No. Patient's initial sepsis screen is negative. Risk Assessment: Do you want to hurt yourself or someone else? Patient reports no desire to harm self or others. Onset of symptoms was August 05, 2022. 12:14 Method Of Arrival: EMS: [facility] 12:14 Acuity: CARMITA 4 hb Triage Assessment: 12:22 General: Appears distressed, uncomfortable, Behavior is agitated, anxious. Pain: eh3 Complains of pain in left foot. EENT: No signs and/or symptoms were reported regarding the EENT system. Neuro: Level of Consciousness is awake, alert, obeys commands, Oriented to person, place, time, situation. Cardiovascular: Capillary refill < 3 seconds Patient's skin is warm and dry. Respiratory: Airway is patent Respiratory effort is even, unlabored, Respiratory pattern is regular, symmetrical. GI: Abdomen is round non-distended. : No signs and/or symptoms were reported regarding the genitourinary system. Derm: No signs and/or symptoms reported regarding the dermatologic system. Skin is pink, warm \T\ dry. Musculoskeletal: Circulation, motion, and sensation intact. Range of motion: limited in left ankle. Historical: - Allergies: 12:16 CARBAMAZEPINE DERIVATIVES; hb 12:16 Depakote; hb 12:16 Tegretol; hb - PMHx: 12:16 ADD/ADHD; Anxiety; Bipolar disorder; Chronic pain; hemorrhoids; Seizures; hb - PSHx: 12:16 R LEG SX; hb - Immunization history:: Adult Immunizations up to date. - Social history:: Smoking status: Patient denies any tobacco usage or history of. Screenin:16 [facility] ED Fall Risk Assessment (Adult) Score/Fall Risk Level 0 - 2 = Low Risk hb Oriented to surroundings, Maintained a safe environment, Educated pt \T\ family on fall prevention, incl call for assistance when getting out of bed. Abuse screen: Denies threats or abuse. Denies injuries from another. Nutritional screening: No deficits noted. Tuberculosis screening: No symptoms or risk factors identified. Assessment: 12:30 Reassessment: No changes from previously documented assessment. See triage assessment. eh3 13:30 Reassessment: Patient appears in no apparent distress at this time. Patient and/or 3 family updated on plan of care and expected duration. Pain level reassessed. Patient is alert, oriented x 3, equal unlabored respirations, skin warm/dry/pink. Vital Signs: 12:14 BP 132 / 82; Pulse 80; Resp 16; Temp 98.1; Pulse Ox 100% ; Pain 4/10; hb 12:30 BP 137 / 89; Pulse 69; Resp 12; Temp 97.5(TE); Pulse Ox 100% on R/A; eh3 13:30 BP 137 / 79; Pulse 64; Resp 15; Pulse Ox 97% on R/A; eh3 14:30 BP 125 / 82; Pulse 63; Resp 10; Pulse Ox 97% on R/A; eh3 12:14 Aguiar-Calzada (FACES) hb Vitals: 12:30 Cardiac Rhythm Assessment Sinus rhythm. 3 ED Course: 12:14 Patient arrived in ED. eb 12:16 Triage completed. hb 12:16 Artur Watkins PA is PHCP. [facility] 12:16 Pascual Lundy MD is Attending Physician. [facility] 12:16 Arm band placed on. hb 12:21 Christiana Johnson, GERONIMO is Primary Nurse. eh3 12:30 Patient has correct armband on for positive identification. Bed in low position. Call eh3 light in reach. Side rails up X2. Client placed on continuous cardiac and pulse oximetry monitoring. NIBP monitoring applied. Door closed. Noise minimized. Warm blanket given. 14:36 No provider procedures requiring assistance completed. Patient did not have IV access eh3 during this emergency room visit. Administered Medications: 13:00 Drug: morphine 4 mg Route: IM; Site: right deltoid; 3 14:37 Follow up: Response: Pain is decreased [facility] 13:00 Drug: Valium (diazepam) 5 mg Route: PO; 3 14:00 Follow up: Response: Anxiety decreased [facility] Medication: 12:17 VIS not applicable for this client. Outcome: 14:20 Discharge ordered by . mario 14:36 Discharged to home via wheelchair. [facility] 14:36 Condition: stable 14:36 Discharge instructions given to patient, Instructed on discharge instructions, follow up and referral plans. medication usage, Demonstrated understanding of instructions, follow-up care, medications, Prescriptions given X 1. 14:46 Patient left the ED. 3 Signatures: Artur Watikns PA PA jmm Baxter, Heather, RN RN Sulema Tucker Erin, RN RN 3
--- NOTE | 2022-08-05 14:20 | EDPHYS ---
Physician Documentation [facility] Name: Sidra Hodges Age: 47 yrs Sex: Female : 1975 Arrival Date: 08/05/2022 Time: 12:14 Bed 15 Private MD: ED Physician Pascual Lundy HPI: 08/05 12:18 This 47 yrs old Female presents to ER via EMS with complaints of Foot Pain. jmm 12:18 The patient presents with pain, that is acute. Onset: The symptoms/episode jmm began/occurred gradually. Modifying factors: The symptoms are alleviated by nothing. the symptoms are aggravated by nothing. Is a 47-year-old female with history of anxiety, bipolar, chronic pain the presents emerged department with ongoing pain to her left lower extremity. Patient injured it earlier this year.. Historical: - Allergies: 12:16 CARBAMAZEPINE DERIVATIVES; hb 12:16 Depakote; hb 12:16 Tegretol; hb - PMHx: 12:16 ADD/ADHD; Anxiety; Bipolar disorder; Chronic pain; hemorrhoids; Seizures; hb - PSHx: 12:16 R LEG SX; hb - Immunization history:: Adult Immunizations up to date. - Social history:: Smoking status: Patient denies any tobacco usage or history of. ROS: 12:18 Constitutional: Negative for fever, chills, and weight loss, Cardiovascular: Negative jmm for chest pain, palpitations, and edema, Respiratory: Negative for shortness of breath, cough, wheezing, and pleuritic chest pain. 12:18 MS/extremity: Positive for pain, swelling. 12:18 All other systems are negative. Exam: 12:18 Constitutional: This is a well developed, well nourished patient who is awake, alert, jmm and in no acute distress. Head/Face: atraumatic. Eyes: EOMI, no conjunctival erythema appreciated ENT: Moist Mucus Membranes Neck: Trachea midline, Supple Chest/axilla: Normal chest wall appearance and motion. Cardiovascular: Regular rate and rhythm. No edema appreciated Respiratory: Normal respirations, no respiratory distress appreciated Abdomen/GI: Non distended Back: Normal ROM Skin: General appearance color normal 12:18 Musculoskeletal/extremity: Swelling noted to the left lower extremity, compartments are soft, full dorsalis pedis pulse, neurovascular. 12:18 Skin: Appearance: Color: normal in color. 12:18 Neuro: Motor: is normal. Vital Signs: 12:14 BP 132 / 82; Pulse 80; Resp 16; Temp 98.1; Pulse Ox 100% ; Pain 4/10; hb 12:30 BP 137 / 89; Pulse 69; Resp 12; Temp 97.5(TE); Pulse Ox 100% on R/A; eh3 13:30 BP 137 / 79; Pulse 64; Resp 15; Pulse Ox 97% on R/A; eh3 14:30 BP 125 / 82; Pulse 63; Resp 10; Pulse Ox 97% on R/A; eh3 12:14 Aguiar-Calzada (FACES) hb MDM: 12:18 Patient medically screened. ry 13:41 Data reviewed: vital signs, nurses notes. [facility] 14:12 I considered the following discharge prescriptions or medication management in the [facility] emergency department Medications were administered in the Emergency Department. See MAR. Independent interpretation of the following test(s) in the Emergency Department X-Ray: My interpretation is No fracture appreciated. 14:12 Counseling: I had a detailed discussion with the patient and/or guardian regarding: the [facility] historical points, exam findings, and any diagnostic results supporting the discharge/admit diagnosis, radiology results, the need for outpatient follow up, to return to the emergency department if symptoms worsen or persist or if there are any questions or concerns that arise at home. 08/05 12:33 Order name: Extremity Venous Unilateral Ltd [facility] 08/05 13:44 Order name: ; Complete Time: 13:46 EDAL Administered Medications: 13:00 Drug: morphine 4 mg Route: IM; Site: right deltoid; eh3 14:37 Follow up: Response: Pain is decreased eh3 13:00 Drug: Valium (diazepam) 5 mg Route: PO; eh3 14:00 Follow up: Response: Anxiety decreased eh3 Disposition Summary: 08/05/22 14:20 Discharge Ordered Location: Home [facility] Condition: Stable [facility] Diagnosis - Pain in left foot [facility] Followup: [facility] - With: Private Physician - When: 2 - 3 days - Reason: Recheck today's complaints, Continuance of care, Re-evaluation by your physician Discharge Instructions: - Discharge Summary Sheet [facility] - Musculoskeletal Pain [facility] - Foot Pain [facility] Forms: - Medication Reconciliation Form [facility] - Thank You Letter jmm - Antibiotic Education jmm - Prescription Opioid Use [facility] Prescriptions: - orphenadrine citrate 100 mg Oral Tablet Sustained Release - take 1 tablet by ORAL route 2 times per day As needed; 20 tablet; Refills: 0, m Product Selection Permitted Signatures: Dispatcher [employer] Pascual Gamble MD MD cha Mickail, Joel, PA PA jmm Baxter, Heather, RN RN Christiana Johnson RN RN eh3
[2022-08-05 14:53] VITALS: TEMP 97.5
[2022-08-05 14:54] VITALS: O2SAT 97
[2022-08-05 14:55] VITALS: BP 125/82
== END 2022-08-05 14:46 | disposition home or self-care (01) ==
LOC: ER 12:12
DX: M79.672 Pain in left foot (principal)
CPT/HCPCS: 93971; 96372; 99283

== ENCOUNTER 2022-08-11 01:51 | Emergency (ER) | payer SELFPAY ==
--- OUTSIDE RECORDS SUMMARY | 2022-08-11 02:15 | XMS REPORT | Continuity of Care Document ---
:1975 Author Organization [facility] t Address [address] [place] [address] Care Team Providers Name Role Phone Swapnil Fung Primary Care Physician [phone] Problems This patient has no known problems. [...] Procedure Date / Time Performed Performing Clinician [facility] e [id number] Ecg Routine Ecg W/least 12 2017-09-24 00:00:00 Lds W/i r Plan of Care Planned Activity Planned Date Details Comments Source Goal Plan of Care Note [code = 29770-0] Goal Plan of Care Note [code = 18386-2] Goal Plan of Care Note [code = 90163-2] Goal Plan of Care Note [code = 77917-2] Goal Plan of Care Note [code = 49342-0] Goal Plan of Care Note [code = 09838-2] Goal Plan of Care Note [code = 59970-8] Goal Plan of Care Note [code = 49271-9] Goal Plan of Care Note [code = 71415-8] Goal Plan of Care Note [code = 26648-0] Goal Plan of Care Note [code = 22240-0] Goal Plan of Care Note [code = 68477-6] Goal Plan of Care Note [code = 60749-9] Goal Plan of Care Note [code = 38564-5] Goal Plan of Care Note [code = 78321-7] Goal Plan of Care Note [code = 92155-4] Goal Plan of Care Note [code = 33871-4] Goal Plan of Care Note [code = 70101-1] Goal Plan of Care Note [code = 11000-6] Goal Plan of Care Note [code = 26054-7] Goal Plan of Care Note [code = 32246-1] Goal Plan of Care Note [code = 07990-1] Goal Plan of Care Note [code = 50484-5] Goal Plan of Care Note [code = 86439-4] Goal Plan of Care Note [code = 20445-2] Goal Plan of Care Note [code = 41085-1] Goal Plan of Care Note [code = 10780-7] Goal Plan of Care Note [code = 78708-5] Goal Plan of Care Note [code = 83857-0] Encounters Start End Encounter Admission Attending Care Care Encounter Source Date/Time Date/Time Type Type Clinicians Facility Department ID 2022-07-17 2022-07-17 Outpatient [facility] [id number] [address] 15:03:48 15:03:48 Audrey Contreras 2022-07-17 2022-07-17 Outpatient [id number] 00:00:00 00:00:00 Visit [id number] Results Test Description Test Time Test Comments Results Result Comments Source SARS-CoV-2 (COVID-19) by RT-PCR (HIGH RISK) 2020-08-19 00:00 :00 Test Item Value Reference Range Interpretation Comme nts SARS-CoV-2 INTERPRETATION (test code = 09247) NEGATIVE SOURCE (test code = 40244) NOT SPECIFIED SARS-CoV-2 (COVID-19) by RT-PCR (HIGH RISK)2020-08-19 00:00:00 Test Item Value Reference Range Interpretation Comments SARS-CoV-2 INTERPRETATION (test NEGATIVE code = 50223) SOURCE (test code = 68605) NOT SPECIFIED PAP TEST, THINPREP, [id number] 00:00:00 Test Item Value Reference Range Interpretation Comments SOURCE: (test code = Cervical/Endocervical 8001) SLIDES: (test code = 1 8011) LMP: (test code = 8021) 06/2017 SPECIMEN ADEQUACY: (test (NOTE) code = 00384) INTERPRETATION: (test NILM/NO EPITH. code = 53499) ABNORMALITY;SEE BELOW RESERVATIONS CLERK: (test Malek code = 8101) [facility],CT(ASCP) IAC LOCATION: (test code = (NOTE) 62670) CPT: (test code = 8140) (NOTE) PAP TEST, THINPREP, [id number] 00:00:00 Test Item Value Reference Range Interpretation Comments SOURCE: (test code = Cervical/Endocervical 8001) SLIDES: (test code = 1 8011) LMP: (test code = 8021) 06/2017 SPECIMEN ADEQUACY: (test (NOTE) code = 72851) INTERPRETATION: (test NILM/NO EPITH. code = 50446) ABNORMALITY;SEE BELOW RESERVATIONS CLERK: (test Malek code = 8101) [facility],CT(ASCP) IAC LOCATION: (test code = (NOTE) 41040) CPT: (test code = 8140) (NOTE) HPV HIGH RISK WITH GENOTYPE, [id number] 00:00:00 Test Item Value Reference Range Interpretation Comments HPV HIGH RISK INTERP (test code = NEGATIVE 25976) HPV 16 (test code = 85212) NEGATIVE HPV 18 (test code = 01544) NEGATIVE HPV, HR, OTHER GENOTYPES (test code NEGATIVE = 68841) HPV HIGH RISK WITH GENOTYPE, [id number] 00:00:00 Test Item Value Reference Range Interpretation Comments HPV HIGH RISK INTERP (test code = NEGATIVE 20252) HPV 16 (test code = 36783) NEGATIVE HPV 18 (test code = 21661) NEGATIVE HPV, HR, OTHER GENOTYPES (test code NEGATIVE = 66221) Valproic Acid [id number] 08:03:22 Test Item Value Reference Range Interpretation Comments Valproic Acid Level (test code 57.6 ug/mL(g) 50.0-100.0 = Valproic Acid Level) Hemoglobin [id number] 09:36:00 Test Item Value Reference Range Interpretation Comments Hemoglobin A1c (test code 5.0 % 4.8-5.9 No n Diabetic = Hemoglobin A1c) 4.8-5.9%Di abetic <7.0% CT Shoulder w/o Contrast [id number] 16:49:13Patient: BHUMIKA JONES Date/Time01/09/2019 16:14 CDTReason for [...] Adam FSigned (Electronic Signature): 01/09/2019 4:49 pmRPR [id number] 21:33:20 Test Item Value Reference Range Interpretation [...] Expiration Dt) XR Shoulder Complete 2+ Views [id number] 15:41:25Patient: BHUMIKA JONES Date/Time01/07/2019 15:25 CDTReason for [...] CSigned (Electronic Signature): 01/07/2019 3:41 pmThyroid Stimulating [id number] 03:07:04 Test Item Value Reference Range Interpretation Comments TSH (test code = TSH) 9.650 mIU/mL 0.270-4.200 H Lipid [id number] 03:07:03 Test Item Value Reference Range Interpretation Comments Cholesterol Total 199 mg/dL 0-200 RISK OF HE ART (test code = DISEASEPublishe d by Cholesterol Total) [employer] [place] Optimal [place] [...] LDL/HDL Ratio=L DL Calc/HDL Chol HCG Qualitative [id number] 02:33:13 Test Item Value Reference Range Interpretation Comments HCG, Serum Qual (test code = HCG, Negative Serum Qual) Lot # (test code = Lot #) [id number] N Expiration Dt (test code = 2020-04-23 N Expiration Dt) Neg Control (test code = Neg Negative Control) Pos Control (test code = Pos Positive Control) Internal QC (test code = Internal Acceptable QC) Drugs of Abuse Urine [id number] 18:58:11 Test Item Value Reference Range Interpretation [...] (test code = Cannabinoid Screen Ur) Alcohol [id number] 18:47:34 Test Item Value Reference Range Interpretation Comments Ethanol Level (test <0.00 g/dL 0.00-0.01 Intoxica isabel 0.080 g/dL code = Ethanol or more Level) Ethanol Inst (test <0 N code = Ethanol Inst) Comprehensive Metabolic [id number] 18:47:33 Test Item Value Reference Range Interpretation [...] A/G 1.0 ratio N Ratio) Comprehensive Metabolic [id number] 18:47:33 Test Item Value Reference Range Interpretation [...] disease than se rum creatinine alone.This calculation may es sex and race in to account, [...] National Kidney Foundation, http://nkdep.ni h.gov Comprehensive Metabolic [id number] 18:47:33 Test Item Value Reference Range Interpretation [...] ag e have not been validated by [facility] MDRD study and should be [...] ag e have not been validated by [facility] MDRD study and should be interpreted wit h caution. eGFR R esult Interpretation: eGFR > or = 60 is in the Normal RangeeGF R < 60 may mean kid betzaida diseaseeGFR < 1 5 may mean kidney failure Rang es recommended by the National Kidney Foundation, http://nkdep.ni h.gov Complete Blood Count with [id number] 18:15:23 Test Item Value Reference Range Interpretation [...] code = IPF) 0 % N Automated [id number] 18:15:23 Test Item Value Reference Range Interpretation Comments Neutro Auto (test code = Neutro 42.1 % 36.0-70.0 Auto) Lymph Auto (test code = Lymph Auto) 40.0 % 12.0-44.0 Forrest Auto (test code = Forrest Auto) 12.2 % 0.0-11.0 H Eos, Auto (test code = Eos, Auto) 4.9 % 0.0-7.0 Basophil Auto (test code = Basophil 0.6 % 0.0-2.0 Auto) Neutro Absolute (test code = Neutro 2.2 x10 1.6-7.4 Absolute) Lymph Absolute (test code = Lymph 2.06 x10 .50-4.60 Absolute) Forrest Absolute (test code = Forrest .63 x10 .00-1.20 Absolute) Eos Absolute (test code = Eos 0.25 x10 0.00-0.74 Absolute) Baso Absolute (test code = Baso 0.03 x10 0.00-0.21 Absolute) IG [id number] 18:15:23 Test Item Value Reference Range Interpretation Comments IG (test code = IG) 0.2 % 0.0-5.0 IG Abs (test code = IG Abs) 0 x10 N VALPROIC [id number] 00:00:00 Test Item Value Reference Range Interpretation Comments VALPROIC ACID (test code = 3025) 69.8 UG/ML VALPROIC [id number] 00:00:00 Test Item Value Reference Range Interpretation Comments VALPROIC ACID (test code = 3025) 69.8 UG/ML URINE CULTURE, NO [id number] 00:00:00 Test Item Value Reference Range Interpretation Comments URINE CULTURE, NO SPECIMEN NUMBER: SENS (test code = [id number] [id number]) URINE CULTURE, NO [id number] 00:00:00 Test Item Value Reference Range Interpretation Comments URINE CULTURE, NO SPECIMEN NUMBER: SENS (test code = [id number]) [id number] 00:00:00 Test Item Value Reference Range Interpretation Comments TRANSFERRIN (test code = 4936) 269 MG/DL [id number] 00:00:00 Test Item Value Reference Range Interpretation Comments TRANSFERRIN (test code = 4936) 269 MG/DL FOLIC [id number] 00:00:00 Test Item Value Reference Range Interpretation Comments FOLIC ACID (test code = 2695) 5.4 UG/L FOLIC [id number] 00:00:00 Test Item Value Reference Range Interpretation Comments FOLIC ACID (test code = 2695) 5.4 UG/L IRON BINDING CAPACITY AND IRON AND % [id number] 00:00:00 Test Item Value Reference Range Interpretation Comments IRON, SERUM (test code = 2222) 42 UG/DL UNSATURATED IBC (test code = 05869) 279 UG/DL CALC TOTAL IBC (test code = 2077) 321 UG/DL CALC % IRON SAT (test code = 2079) 13 % IRON BINDING CAPACITY AND IRON AND % [id number] 00:00:00 Test Item Value Reference Range Interpretation Comments IRON, SERUM (test code = 2222) 42 UG/DL UNSATURATED IBC (test code = 01273) 279 UG/DL CALC TOTAL IBC (test code = 2077) 321 UG/DL CALC % IRON SAT (test code = 2079) 13 % [id number] 00:00:00 Test Item Value Reference Range Interpretation Comments FERRITIN (test code = 2075) 15 NG/ML [id number] 00:00:00 Test Item Value Reference Range Interpretation Comments FERRITIN (test code = 2075) 15 NG/ML CULTURE, URINE [ADDED]2018-06-12 00:00:00 Test Item Value Reference Range Interpretation Comments CULTURE, URINE (test SPECIMEN NUMBER: code = 44669) [id number] CULTURE, URINE [ADDED]2018-06-12 00:00:00 Test Item Value Reference Range Interpretation Comments CULTURE, URINE (test SPECIMEN NUMBER: code = 06406) [id number] COMPREHENSIVE METABOLIC [id number] 00:00:00 Test Item Value Reference Range Interpretation Comments GLUCOSE (test code = 2217) 86 MG/DL BUN (test code = 2208) 16 MG/DL CREATININE (test code = 2214) 0.45 MG/DL eGFR AMER. (test code 141 ML/MIN/1.73 = 28608) eGFR NON- AMER. (test 122 ML/MIN/1.73 code = 25405) CALC BUN/CREAT (test code = 36 RATIO [...] code = 2219) 17 U/L COMPREHENSIVE METABOLIC [id number] 00:00:00 Test Item Value Reference Range Interpretation Comments GLUCOSE (test code = 2217) 86 MG/DL BUN (test code = 2208) 16 MG/DL CREATININE (test code = 2214) 0.45 MG/DL eGFR AMER. (test code 141 ML/MIN/1.73 = 24326) eGFR NON- AMER. (test 122 ML/MIN/1.73 code = 32224) CALC BUN/CREAT (test code = 36 RATIO [...] (test code = 2219) 17 U/L VALPROIC [id number] 00:00:00 Test Item Value Reference Range Interpretation Comments VALPROIC ACID (test code = 3025) 100.9 UG/ML VALPROIC [id number] 00:00:00 Test Item Value Reference Range Interpretation Comments VALPROIC ACID (test code = 3025) 100.9 UG/ML CBC W/AUTO [id number] 00:00:00 Test Item Value Reference Range Interpretation [...] code = 1015) 184 K/UL CBC W/AUTO [id number] 00:00:00 Test Item Value Reference Range Interpretation [...] code = 1015) 184 K/UL CBC W/AUTO [id number] 00:00:00 Test Item Value Reference Range Interpretation [...] = 1015) 184 K/UL PAP TEST, THINPREP, [id number] 00:00:00 Test Item Value Reference Range Interpretation Comments SOURCE: (test code = Cervical/Endocervical 8001) SLIDES: (test code = 1 8011) LMP: (test code = 03/2017 8021) SPECIMEN ADEQUACY: (NOTE) (test code = 48858) INTERPRETATION: (test NO EPITHELIAL code = 11402) ABNORMALITY SEE BELOW RESERVATIONS CLERK: Santi Elizondo, (test code = 8101) CT(ASCP)IAC LOCATION: (test code (NOTE) = 51865) CPT: (test code = (NOTE) 8140) PAP TEST, THINPREP, [id number] 00:00:00 Test Item Value Reference Range Interpretation Comments SOURCE: (test code = Cervical/Endocervical 8001) SLIDES: (test code = 1 8011) LMP: (test code = 03/2017 8021) SPECIMEN ADEQUACY: (NOTE) (test code = 70059) INTERPRETATION: (test NO EPITHELIAL code = 72906) ABNORMALITY SEE BELOW RESERVATIONS CLERK: Santi Elizondo, (test code = 8101) CT(ASCP)IAC LOCATION: (test code (NOTE) = 60159) CPT: (test code = (NOTE) 8140) HPV HIGH RISK WITH GENOTYPE, [id number] 00:00:00 Test Item Value Reference Range Interpretation Comments HPV HIGH RISK INTERP (test code = NEGATIVE 88323) HPV 16 (test code = 71376) NEGATIVE HPV 18 (test code = 93519) NEGATIVE HPV, HR, OTHER GENOTYPES (test code NEGATIVE = 68415) HPV HIGH RISK WITH GENOTYPE, [id number] 00:00:00 Test Item Value Reference Range Interpretation Comments HPV HIGH RISK INTERP (test code = NEGATIVE 62412) HPV 16 (test code = 77239) NEGATIVE HPV 18 (test code = 30596) NEGATIVE HPV, HR, OTHER GENOTYPES (test code NEGATIVE = 42882) GC AND CHLAMYDIA AMPLIFIED, [id number] 00:00:00 Test Item Value Reference Range Interpretation Comments GONORRHEA, TMA (test code = 21550) NEGATIVE CHLAMYDIA, TMA (test code = 61925) NEGATIVE HIV AB/AG COMBO RFLX [id number] 00:00:00 Test Item Value Reference Range Interpretation Comments HIV 1/2 4TH GEN, RFLX CONF (test NON-REACTIVE code = 3514) GC AND CHLAMYDIA AMPLIFIED, [id number] 00:00:00 Test Item Value Reference Range Interpretation Comments GONORRHEA, TMA (test code = 59683) NEGATIVE CHLAMYDIA, TMA (test code = 16498) NEGATIVE HIV AB/AG COMBO RFLX [id number] 00:00:00 Test Item Value Reference Range Interpretation Comments HIV 1/2 4TH GEN, RFLX CONF (test NON-REACTIVE code = 3514) HEMOGLOBIN [id number] 00:00:00 Test Item Value Reference Range Interpretation Comments HEMOGLOBIN A1c (test code = 27204) 5.2 % HEMOGLOBIN [id number] 00:00:00 Test Item Value Reference Range Interpretation Comments HEMOGLOBIN A1c (test code = 42257) 5.2 % HEMOGLOBIN [id number] 00:00:00 Test Item Value Reference Range Interpretation Comments HEMOGLOBIN A1c (test code = 24587) 5.2 % [id number] 00:00:00 Test Item Value Reference Range Interpretation Comments TSH (test code = 2821) 2.020 UIU/ML [id number] 00:00:00 Test Item Value Reference Range Interpretation Comments TSH (test code = 2821) 2.020 UIU/ML [id number] 00:00:00 Test Item Value Reference Range Interpretation Comments TSH (test code = 2821) 2.020 UIU/ML COMPREHENSIVE METABOLIC [id number] 00:00:00 Test Item Value Reference Range Interpretation Comments GLUCOSE (test code = 2217) 90 MG/DL BUN (test code = 2208) 21 MG/DL CREATININE (test code = 2214) 0.42 MG/DL eGFR AMER. (test code 145 ML/MIN/1.73 = 94026) eGFR NON- AMER. (test 126 ML/MIN/1.73 code = 48928) CALC BUN/CREAT (test code = 50 RATIO [...] code = 2219) <5 U/L COMPREHENSIVE METABOLIC [id number] 00:00:00 Test Item Value Reference Range Interpretation Comments GLUCOSE (test code = 2217) 90 MG/DL BUN (test code = 2208) 21 MG/DL CREATININE (test code = 2214) 0.42 MG/DL eGFR AMER. (test code 145 ML/MIN/1.73 = 05213) eGFR NON- AMER. (test 126 ML/MIN/1.73 code = 94900) CALC BUN/CREAT (test code = 50 RATIO [...] (test code = 2219) <5 U/L LIPID [id number] 00:00:00 Test Item Value Reference Range Interpretation Comments CHOLESTEROL (test code = 2210) 186 MG/DL TRIGLYCERIDES (test code = 2232) 131 MG/DL HDL CHOLESTEROL (test code = 2220) 67 MG/DL CALC LDL CHOL (test code = 2237) 93 MG/DL RISK RATIO LDL/HDL (test code = 1.39 RATIO 2238) LIPID [id number] 00:00:00 Test Item Value Reference Range Interpretation Comments CHOLESTEROL (test code = 2210) 186 MG/DL TRIGLYCERIDES (test code = 2232) 131 MG/DL HDL CHOLESTEROL (test code = 2220) 67 MG/DL CALC LDL CHOL (test code = 2237) 93 MG/DL RISK RATIO LDL/HDL (test code = 1.39 RATIO 2238) CBC W/AUTO [id number] 00:00:00 Test Item Value Reference Range Interpretation [...] code = 1015) 152 K/UL CBC W/AUTO [id number] 00:00:00 Test Item Value Reference Range Interpretation [...] code = 1015) 152 K/UL CBC W/AUTO [id number] 00:00:00 Test Item Value Reference Range Interpretation [...]
[2022-08-11] MEDS ORDERED: HYDROCODONE/APAP 5/325 MG TAB ONE (02:52)
[2022-08-11] MEDS ORDERED: IBUPROFEN 400 MG TAB ONE (02:53)
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
--- NOTE | 2022-08-11 04:28 | ER ---
Nurse's Notes [facility] Name: Sidra Hodges Age: 47 yrs Sex: Female : 1975 Arrival Date: 08/11/2022 Time: 01:53 Bed 20 Private MD: Diagnosis: Left Distal Fibula Fracture;Cervicalgia Presentation: 08/11 01:55 Chief complaint: Patient states: left foot pain of 10 and left ankle pain of 10,onset 1 pf1 month ago and neck pain,onset 1 year ago, patient also C/O headache and can not sleep. Patient stated fell down a ramp approximately 1 month ago. Patient arrived in a walking boot upon arrival to ER. 01:55 Coronavirus screen: Client denies travel out of the [place] in the last 14 days. At this pf1 time, the client does not indicate any symptoms associated with coronavirus-19. Ebola Screen: Patient negative for fever greater than or equal to 101.5 degrees Fahrenheit, and additional compatible Ebola Virus Disease symptoms. Initial Sepsis Screen: Does the patient meet any 2 criteria? No. Patient's initial sepsis screen is negative. Does the patient have a suspected source of infection? No. Patient's initial sepsis screen is negative. Risk Assessment: Do you want to hurt yourself or someone else? Patient reports no desire to harm self or others. 01:55 Method Of Arrival: EMS: [facility] pf1 01:55 Acuity: CARMITA 3 pf1 Triage Assessment: 01:55 General: Appears in no apparent distress. uncomfortable, well groomed, Behavior is pf1 calm, cooperative, appropriate for age, quiet. 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 - Social history:: Smoking status: Patient denies any tobacco usage or history of. Patient/guardian denies using alcohol, street drugs. Screenin:[facility] ED Fall Risk Assessment (Adult) History of falling in the last 3 months, pf1 including since admission Yes- single mechanical fall (1 pt) Confusion or Disorientation No (0 pts) Intoxicated or Sedated No (0 pts) Impaired Gait Yes (1 pt) Mobility Assist Device Used Yes (1 pt) Altered Elimination No (0 pt) Score/Fall Risk Level 3 or more points = High Risk Oriented to surroundings, Maintained a safe environment, Educated pt \T\ family on fall prevention, incl call for assistance when getting out of bed, Assessed \T\ reinforced patient's understanding of fall precautions, Provided non-skid footwear, Hourly rounding (assess needs \T\ fall precautionary measures) done, Used ambulatory aids as needed (educated on \T\ assisted with), Used gait belt as appropriate Remained w/in arm's length of patient and in sight while toileting, Offered frequent toileting (1:1 observation), Remained with patient while ambulating, Utilized family, sitter, or virtual animal behaviourist as indicated. 01:55 Abuse screen: Denies threats or abuse. Nutritional screening: No deficits noted. pf1 Tuberculosis screening: No symptoms or risk factors identified. Assessment: 01:55 General: Appears in no apparent distress. uncomfortable, well groomed, Behavior is pf1 calm, cooperative, appropriate for age, quiet. 01:55 Pain: Complains of pain in dorsum of left foot, left lateral ankle, head and neck pain pf1 Pain currently is 10 out of 10 on a pain scale. Neuro: Level of Consciousness is awake, alert, obeys commands, Oriented to person, place, time, Appropriate for age Reports headache. Cardiovascular: Capillary refill < 3 seconds Patient's skin is warm and dry. Respiratory: No deficits noted. Airway is patent Trachea midline Respiratory effort is even, unlabored, Respiratory pattern is regular, symmetrical, Breath sounds are clear bilaterally. GI: No deficits noted. Abdomen is round non-distended, Bowel sounds present X 4 quads. : No deficits noted. EENT: No deficits noted. Derm: No deficits noted. No signs and/or symptoms reported regarding the dermatologic system. Musculoskeletal: Reports pain in back of head and back of neck and left lateral ankle and dorsum of left foot Pain is 10 out of 10 on a pain scale. 03:00 Reassessment: Patient appears in no apparent distress at this time. Patient and/or pf1 family updated on plan of care and expected duration. Pain level reassessed. Patient is alert, oriented x 3, equal unlabored respirations, skin warm/dry/pink. 04:00 Reassessment: Patient appears in no apparent distress at this time. No changes from pf1 previously documented assessment. Patient and/or family updated on plan of care and expected duration. Pain level reassessed. Patient is alert, oriented x 3, equal unlabored respirations, skin warm/dry/pink. Patient states symptoms have improved. 05:00 Reassessment: Patient appears in no apparent distress at this time. Patient and/or pf1 family updated on plan of care and expected duration. Pain level reassessed. Patient is alert, oriented x 3, equal unlabored respirations, skin warm/dry/pink. Patient states feeling better. Patient states symptoms have improved. Vital Signs: 01:55 BP 125 / 88; Pulse 72; Resp 18; Temp 98.2; Pulse Ox 100% ; Weight 72.57 kg; Pain 10/10; pf1 03:00 BP 115 / 78; Pulse 78; Resp 16; Pulse Ox 100% on R/A; Pain 10/10; pf1 04:00 BP 131 / 65; Pulse 79; Resp 16; Pulse Ox 98% on R/A; Pain 6/10; pf1 05:00 BP 110 / 70; Pulse 69; Resp 16; Temp 98; Pulse Ox 97% on R/A; Pain 5/10; pf1 ED Course: 01:53 Patient arrived in ED. bb 01:55 Arm band placed on. pf1 01:55 Patient has correct armband on for positive identification. Bed in low position. Call pf1 light in reach. 01:58 Pascual Lopez PA is PHCP. cp 01:59 Samantha Guerra MD is Attending Physician. cp 02:32 Le curtis, GERONIMO is Primary Nurse. pf1 03:29 Triage completed. pf1 04:07 US Extremity Venous Unilateral Ltd In Process Unspecified. EDMS 04:07 Lower Extremity Artery Uni Ltd US In Process Unspecified. EDMS 04:15 XRAY Ankle LEFT 3 view In Process Unspecified. EDMS 04:15 XRAY Foot LEFT 3 View In Process Unspecified. EDMS 04:15 XRAY C Spine Ap/lat: pain times 1 year In Process Unspecified. EDMS 04:27 Miguel Angel Rodrigues MD is Referral Physician. cp 05:00 No provider procedures requiring assistance completed. pf1 05:00 Patient did not have IV access during this emergency room visit. pf1 Administered Medications: 02:58 Drug: HYDROcodone-acetaminophen 5 mg-325 mg 1 tabs Route: PO; pf1 03:50 Follow up: Response: No adverse reaction; Marked relief of symptoms; Pain is decreased; pf1 RASS: Alert and Calm (0) 02:58 Drug: Ibuprofen 800 mg Route: PO; pf1 03:50 Follow up: Response: No adverse reaction; Marked relief of symptoms; Pain is decreased; pf1 RASS: Alert and Calm (0) Medication: 01:55 VIS not applicable for this client. pf1 Outcome: 04:27 Discharge ordered by . cp 05:02 Discharged to home ambulatory. pf1 05:02 Condition: improved 05:02 Discharge instructions given to patient, Instructed on discharge instructions, follow up and referral plans. Demonstrated understanding of instructions, follow-up care, medications, Prescriptions given X 1. 05:02 Patient left the ED. pf1 Signatures: Dispatcher [employer] EDDC Conchita Marcelo RN RN Pascual Hardwick PA PA Le ybarra RN RN pf1 Corrections: (The following items were deleted from the chart) 03:29 03:23 Chief complaint: Patient states: left foot pain of 10 and left ankle pain of pf1 10,onset 1 month ago and neck pain,onset 1 year ago, patient also C/O headache and can not sleep. Patient stated fell down a ramp approximately 1 month ago. Patient arrived in a walking boot upon arrival to ER. pf1
[2022-08-11 05:08] VITALS: BP 125/88; TEMP 98.2; O2SAT 100
--- NOTE | 2022-08-12 17:56 | RAD REPORT ---
EXAM DESCRIPTION: RAD - C Spine Ap/Lat - 08/11/2022 4:13 am CLINICAL HISTORY: The patient is 47 years old and is Female; PAIN TECHNIQUE: Frontal, lateral , and odontoid views of the cervical spine. COMPARISON: 07/29/[address] FINDINGS: VERTEBRAE: Relative osteopenic appearance of the bones. No definite acute fracture. No significant subluxation. DISC SPACES: Multilevel degenerative changes of the cervical spine, greater than expected for devi ent age and significantly progressed compared to 2019 exam. SOFT TISSUES: Unremarkable. No abnormal prevertebral soft tissue swelling. OTHER FINDINGS: No definite acute osseous abnormality. IMPRESSION: 1. Multilevel degenerative changes of the cervical spine, greater than expected for pa tient age and significantly progressed compared to 2019 exam. No definite acute fracture, though give n advanced spondylosis and relative osteopenia, radiographs will be insensitive for an acute osseous injury of the cervical spine. Recommend further characterization by CT or MRI if there is clinical longo spicion for acute cervical injury or neurological dysfunction. 2. Relative osteopenic appearance of the bones. Consider DEXA scan if not recently performed to noy luate and potentially treat osteoporosis/osteopenia. Electronically signed by: Constantine Schultz MD 08/11/2022 5:49 AM RAPID OUTSOLE STITCHER Due to temporary technical issues with the PACS/Fluency reporting system, reports are being signed by the in house radiologists without review as a courtesy to insure prompt reporting. The interpreting radiologist is fully responsible for the content of the report.
--- NOTE | 2022-08-12 17:58 | RAD REPORT ---
EXAM DESCRIPTION: RAD - Ankle Left 3 View - 08/11/2022 4:13 am CLINICAL HISTORY: PAIN COMPARISON: None. FINDINGS: 3 views of the left ankle. Acute fracture of the distal fibula without significant displac ement. Soft tissue edema. Osteopenia. IMPRESSION: 1. Nondisplaced fracture of the distal fibula at the level of the ankle mortise. Electronically signed by: Kyle Rodriguez 08/11/2022 5:37 AM HOOD FITTER Due to temporary technical issues with the PACS/Fluency reporting system, reports are being signed by the in house radiologists without review as a courtesy to insure prompt reporting. The interpreting radiologist is fully responsible for the content of the report.
--- NOTE | 2022-08-12 17:59 | RAD REPORT ---
EXAM DESCRIPTION: RAD - Foot Left 3 View - 08/11/2022 4:13 am CLINICAL HISTORY: PAIN COMPARISON: 08/01/2022 FINDINGS: 3 views of the left foot. No fracture identified. Redemonstrated distal fibular fracture. Osteopenia. Soft tissue edema. Tarsals and metatarsals are appropriately aligned. IMPRESSION: 1. No fracture identified. Redemonstrated distal fibular fracture. Electronically signed by: Kyle Rodriguez 08/11/2022 5:38 AM DIRECTOR INTERNAL CONTROL Due to temporary technical issues with the PACS/Fluency reporting system, reports are being signed by the in house radiologists without review as a courtesy to insure prompt reporting. The interpreting radiologist is fully responsible for the content of the report.
--- NOTE | 2022-08-12 18:01 | RAD REPORT ---
EXAM DESCRIPTION: US - Lower Extremity Artery Uni Ltd - 08/11/2022 4:05 am COMPARISON: None. CLINICAL HISTORY: [facility] MAIN PAIN TECHNIQUE: Multiple grayscale, color, and spectral Doppler images of the left lower extremity arteri es. FINDINGS: Left: The common femoral, superficial femoral, popliteal, posterior tibial, and dorsalis p katie arteries demonstrate normal triphasic waveforms. No abrupt changes in velocity. Velocities r kobi from 71 - 109 cm/s. No significant atherosclerotic plaque. IMPRESSION: No significant stenoses. Electronically signed by: Efrain Jameson MD 08/11/2022 5:36 AM HOME CARE ASSOCIATE Due to temporary technical issues with the PACS/Fluency reporting system, reports are being signed by the in house radiologists without review as a courtesy to insure prompt reporting. The interpreting radiologist is fully responsible for the content of the report.
--- NOTE | 2022-08-12 18:03 | RAD REPORT ---
EXAM DESCRIPTION: US - Extremity Venous Uni Ltd - 08/11/2022 4:05 am CLINICAL HISTORY: Pain COMPARISON: None. TECHNIQUE: Grayscale, color Doppler, and spectral Doppler imaging of the left lower extremity venous system. FINDINGS: Normal compressibility and flow identified in the left common femoral, superficial femoral , popliteal, and visualized calf veins. No echogenic thrombus identified. No soft tissue abnormalitie s. Respiratory phasicity in the common femoral veins. IMPRESSION: No evidence of left lower extremity DVT. Electronically signed by: Kyle Rodriguez 08/11/2022 5:33 AM WALL WASHER Due to temporary technical issues with the PACS/Fluency reporting system, reports are being signed by the in house radiologists without review as a courtesy to insure prompt reporting. The interpreting radiologist is fully responsible for the content of the report.
== END 2022-08-11 05:02 | disposition home or self-care (01) ==
LOC: ER 01:51
DX: S82.832A Other fracture of upper and lower end of left fibula, initial encounter for closed fracture (principal); M54.2 Cervicalgia; R51.9 Headache, unspecified; Z88.8 Allergy status to other drugs, medicaments and biological substances
CPT/HCPCS: 72040; 93926; 93971; 99284

== ENCOUNTER 2022-08-15 14:47 | Emergency (ER) | payer SELFPAY ==
--- OUTSIDE RECORDS SUMMARY | 2022-08-15 14:52 | XMS REPORT | Continuity of Care Document ---
:1975 Author Organization [facility] t Address [address] [place] [address] Care Team Providers Name Role Phone Swapnil Fung Primary Care Physician [phone] Problems This patient has no known problems. [...] 25 mg 2-21 tablet 00:00: 00 ibuprofen 1 No 1mg 600 mg 1-11 tablet 00:00: 00 Keflex 500 2020-0 No 1mg mg capsule 1-30 00:00: 00 Bromfed DM 2019-0 No 5mg/5 2 mg-30 1-30 mL mg-10 mg/5 00:00: mL oral 00 syrup mupirocin 2 2020-0 No 1% % topical 1-23 ointment 00:00: 00 Keflex 500 2020-0 No 1mg mg capsule -23 00:00: 00 mupirocin 2 2020-0 No 1% [...] Procedure Date / Time Performed Performing Clinician [facility] e [address] Ecg Routine Ecg W/least 12 2017-09-24 00:00:00 Lds W/i r Plan of Care Planned Activity Planned Date Details Comments Source Goal Plan of Care Note [code = 12086-8] Goal Plan of Care Note [code = 63040-4] Goal Plan of Care Note [code = 42784-5] Goal Plan of Care Note [code = 22005-8] Goal Plan of Care Note [code = 66791-8] Goal Plan of Care Note [code = 73708-0] Goal Plan of Care Note [code = 45530-9] Goal Plan of Care Note [code = 81445-5] Goal Plan of Care Note [code = 39276-3] Goal Plan of Care Note [code = 96698-4] Goal Plan of Care Note [code = 70083-0] Goal Plan of Care Note [code = 27520-1] Goal Plan of Care Note [code = 88991-0] Goal Plan of Care Note [code = 55929-5] Goal Plan of Care Note [code = 73195-4] Goal Plan of Care Note [code = 25241-8] Goal Plan of Care Note [code = 46413-7] Goal Plan of Care Note [code = 24246-5] Goal Plan of Care Note [code = 63596-8] Goal Plan of Care Note [code = 76581-2] Goal Plan of Care Note [code = 38765-9] Goal Plan of Care Note [code = 65856-8] Goal Plan of Care Note [code = 78374-4] Goal Plan of Care Note [code = 26162-9] Goal Plan of Care Note [code = 78278-0] Goal Plan of Care Note [code = 20069-0] Goal Plan of Care Note [code = 25303-1] Goal Plan of Care Note [code = 25814-8] Goal Plan of Care Note [code = 04876-9] Encounters Start End Encounter Admission Attending Care Care Encounter Source Date/Time Date/Time Type Type Clinicians Facility Department ID 2022-07-17 2022-07-17 Outpatient [facility] [id number] Henry 15:03:48 15:03:48 Audrey Contreras 2022-07-17 2022-07-17 Outpatient [id number] 00:00:00 00:00:00 Visit [id number] Results Test Description Test Time Test Comments Results Result Comments Source SARS-CoV-2 (COVID-19) by RT-PCR (HIGH RISK) 2020-08-19 00:00 :00 Test Item Value Reference Range Interpretation Comme nts SARS-CoV-2 INTERPRETATION (test code = 51632) NEGATIVE SOURCE (test code = 88276) NOT SPECIFIED SARS-CoV-2 (COVID-19) by RT-PCR (HIGH RISK)2020-08-19 00:00:00 Test Item Value Reference Range Interpretation Comments SARS-CoV-2 INTERPRETATION (test NEGATIVE code = 62006) SOURCE (test code = 88703) NOT SPECIFIED PAP TEST, THINPREP, [id number] 00:00:00 Test Item Value Reference Range Interpretation Comments SOURCE: (test code = Cervical/Endocervical 8001) SLIDES: (test code = 1 8011) LMP: (test code = 8021) 06/2017 SPECIMEN ADEQUACY: (test (NOTE) code = 11332) INTERPRETATION: (test NILM/NO EPITH. code = 55330) ABNORMALITY;SEE BELOW TAXI PROPRIETOR: (test Malek code = 8101) [facility],CT(ASCP) IAC LOCATION: (test code = (NOTE) 34344) CPT: (test code = 8140) (NOTE) PAP TEST, THINPREP, [id number] 00:00:00 Test Item Value Reference Range Interpretation Comments SOURCE: (test code = Cervical/Endocervical 8001) SLIDES: (test code = 1 8011) LMP: (test code = 8021) 06/2017 SPECIMEN ADEQUACY: (test (NOTE) code = 56560) INTERPRETATION: (test NILM/NO EPITH. code = 95417) ABNORMALITY;SEE BELOW TAXI PROPRIETOR: (test Malek code = 8101) [facility],CT(ASCP) IAC LOCATION: (test code = (NOTE) 13220) CPT: (test code = 8140) (NOTE) HPV HIGH RISK WITH GENOTYPE, [id number] 00:00:00 Test Item Value Reference Range Interpretation Comments HPV HIGH RISK INTERP (test code = NEGATIVE 19328) HPV 16 (test code = 03489) NEGATIVE HPV 18 (test code = 17589) NEGATIVE HPV, HR, OTHER GENOTYPES (test code NEGATIVE = 21830) HPV HIGH RISK WITH GENOTYPE, [id number] 00:00:00 Test Item Value Reference Range Interpretation Comments HPV HIGH RISK INTERP (test code = NEGATIVE 82080) HPV 16 (test code = 60252) NEGATIVE HPV 18 (test code = 65710) NEGATIVE HPV, HR, OTHER GENOTYPES (test code NEGATIVE = 96368) Valproic Acid [id number] 08:03:22 Test Item Value Reference Range Interpretation Comments Valproic Acid Level (test code 57.6 ug/mL(g) 50.0-100.0 = Valproic Acid Level) Hemoglobin [id number] 09:36:00 Test Item Value Reference Range Interpretation Comments Hemoglobin A1c (test code 5.0 % 4.8-5.9 No n Diabetic = Hemoglobin A1c) 4.8-5.9%Di abetic <7.0% CT Shoulder w/o Contrast [id number] 16:49:13Patient: BHUMIKA JONES Date/Time01/09/2019 16:14 CDTReason for [...] Adam FSigned (Electronic Signature): 01/09/2019 4:49 pmRPR [id number] 21:33:20 Test Item Value Reference Range Interpretation [...] Expiration Dt) XR Shoulder Complete 2+ Views [id number] 15:41:25Patient: BHUMIKA JONES Date/Time01/07/2019 15:25 CDTReason for [...] CSigned (Electronic Signature): 01/07/2019 3:41 pmThyroid Stimulating [id number] 03:07:04 Test Item Value Reference Range Interpretation Comments TSH (test code = TSH) 9.650 mIU/mL 0.270-4.200 H Lipid [id number] 03:07:03 Test Item Value Reference Range Interpretation Comments Cholesterol Total 199 mg/dL 0-200 RISK OF HE ART (test code = DISEASEPublishe d by Cholesterol Total) [place] [place] Optimal Borderl ine [...] LDL/HDL Ratio=L DL Calc/HDL Chol HCG Qualitative [id number] 02:33:13 Test Item Value Reference Range Interpretation Comments HCG, Serum Qual (test code = HCG, Negative Serum Qual) Lot # (test code = Lot #) [id number] N Expiration Dt (test code = 2020-04-23 N Expiration Dt) Neg Control (test code = Neg Negative Control) Pos Control (test code = Pos Positive Control) Internal QC (test code = Internal Acceptable QC) Drugs of Abuse Urine [id number] 18:58:11 Test Item Value Reference Range Interpretation [...] (test code = Cannabinoid Screen Ur) Alcohol [id number] 18:47:34 Test Item Value Reference Range Interpretation Comments Ethanol Level (test <0.00 g/dL 0.00-0.01 Intoxica isabel 0.080 g/dL code = Ethanol or more Level) Ethanol Inst (test <0 N code = Ethanol Inst) Comprehensive Metabolic [id number] 18:47:33 Test Item Value Reference Range Interpretation [...] A/G 1.0 ratio N Ratio) Comprehensive Metabolic [id number] 18:47:33 Test Item Value Reference Range Interpretation [...] National Kidney Foundation, http://nkdep.ni h.gov Comprehensive Metabolic [id number] 18:47:33 Test Item Value Reference Range Interpretation [...] ag e have not been validated by [facility] MDRD study and should be [...] ag e have not been validated by [facility] MDRD study and should be interpreted wit h caution. eGFR R esult Interpretation: eGFR > or = 60 is in the Normal RangeeGF R < 60 may mean kid betzaida diseaseeGFR < 1 5 may mean kidney failure Rang es recommended by the National Kidney Foundation, http://nkdep.ni h.gov Complete Blood Count with [id number] 18:15:23 Test Item Value Reference Range Interpretation [...] code = IPF) 0 % N Automated [id number] 18:15:23 Test Item Value Reference Range Interpretation Comments Neutro Auto (test code = Neutro 42.1 % 36.0-70.0 Auto) Lymph Auto (test code = Lymph Auto) 40.0 % 12.0-44.0 Thomas Auto (test code = Thomas Auto) 12.2 % 0.0-11.0 H Eos, Auto (test code = Eos, Auto) 4.9 % 0.0-7.0 Basophil Auto (test code = Basophil 0.6 % 0.0-2.0 Auto) Neutro Absolute (test code = Neutro 2.2 x10 1.6-7.4 Absolute) Lymph Absolute (test code = Lymph 2.06 x10 .50-4.60 Absolute) Thomas Absolute (test code = Thomas .63 x10 .00-1.20 Absolute) Eos Absolute (test code = Eos 0.25 x10 0.00-0.74 Absolute) Baso Absolute (test code = Baso 0.03 x10 0.00-0.21 Absolute) IG [id number] 18:15:23 Test Item Value Reference Range Interpretation Comments IG (test code = IG) 0.2 % 0.0-5.0 IG Abs (test code = IG Abs) 0 x10 N VALPROIC [id number] 00:00:00 Test Item Value Reference Range Interpretation Comments VALPROIC ACID (test code = 3025) 69.8 UG/ML VALPROIC [id number] 00:00:00 Test Item Value Reference Range Interpretation Comments VALPROIC ACID (test code = 3025) 69.8 UG/ML URINE CULTURE, NO [id number] 00:00:00 Test Item Value Reference Range Interpretation Comments URINE CULTURE, NO SPECIMEN NUMBER: SENS (test code = [id number]) URINE CULTURE, NO [id number] 00:00:00 Test Item Value Reference Range Interpretation Comments URINE CULTURE, NO SPECIMEN NUMBER: SENS (test code = [id number]) [id number] 00:00:00 Test Item Value Reference Range Interpretation Comments TRANSFERRIN (test code = 4936) 269 MG/DL [id number] 00:00:00 Test Item Value Reference Range Interpretation Comments TRANSFERRIN (test code = 4936) 269 MG/DL FOLIC [id number] 00:00:00 Test Item Value Reference Range Interpretation Comments FOLIC ACID (test code = 2695) 5.4 UG/L FOLIC [id number] 00:00:00 Test Item Value Reference Range Interpretation Comments FOLIC ACID (test code = 2695) 5.4 UG/L IRON BINDING CAPACITY AND IRON AND % [id number] 00:00:00 Test Item Value Reference Range Interpretation Comments IRON, SERUM (test code = 2222) 42 UG/DL UNSATURATED IBC (test code = 83109) 279 UG/DL CALC TOTAL IBC (test code = 2077) 321 UG/DL CALC % IRON SAT (test code = 2079) 13 % IRON BINDING CAPACITY AND IRON AND % [id number] 00:00:00 Test Item Value Reference Range Interpretation Comments IRON, SERUM (test code = 2222) 42 UG/DL UNSATURATED IBC (test code = 81141) 279 UG/DL CALC TOTAL IBC (test code = 2077) 321 UG/DL CALC % IRON SAT (test code = 2079) 13 % [id number] 00:00:00 Test Item Value Reference Range Interpretation Comments FERRITIN (test code = 2075) 15 NG/ML [id number] 00:00:00 Test Item Value Reference Range Interpretation Comments FERRITIN (test code = 2075) 15 NG/ML CULTURE, URINE [ADDED]2018-06-12 00:00:00 Test Item Value Reference Range Interpretation Comments CULTURE, URINE (test SPECIMEN NUMBER: code = 74037) [id number] CULTURE, URINE [ADDED]2018-06-12 00:00:00 Test Item Value Reference Range Interpretation Comments CULTURE, URINE (test SPECIMEN NUMBER: code = 74298) [id number] COMPREHENSIVE METABOLIC [id number] 00:00:00 Test Item Value Reference Range Interpretation Comments GLUCOSE (test code = 2217) 86 MG/DL BUN (test code = 2208) 16 MG/DL CREATININE (test code = 2214) 0.45 MG/DL eGFR AMER. (test code 141 ML/MIN/1.73 = 66098) eGFR NON- AMER. (test 122 ML/MIN/1.73 code = 01212) CALC BUN/CREAT (test code = 36 RATIO [...] code = 2219) 17 U/L COMPREHENSIVE METABOLIC [id number] 00:00:00 Test Item Value Reference Range Interpretation Comments GLUCOSE (test code = 2217) 86 MG/DL BUN (test code = 2208) 16 MG/DL CREATININE (test code = 2214) 0.45 MG/DL eGFR AMER. (test code 141 ML/MIN/1.73 = 60551) eGFR NON- AMER. (test 122 ML/MIN/1.73 code = 48303) CALC BUN/CREAT (test code = 36 RATIO [...] (test code = 2219) 17 U/L VALPROIC [id number] 00:00:00 Test Item Value Reference Range Interpretation Comments VALPROIC ACID (test code = 3025) 100.9 UG/ML VALPROIC [id number] 00:00:00 Test Item Value Reference Range Interpretation Comments VALPROIC ACID (test code = 3025) 100.9 UG/ML CBC W/AUTO [id number] 00:00:00 Test Item Value Reference Range Interpretation [...] code = 1015) 184 K/UL CBC W/AUTO [id number] 00:00:00 Test Item Value Reference Range Interpretation [...] code = 1015) 184 K/UL CBC W/AUTO [id number] 00:00:00 Test Item Value Reference Range Interpretation [...] = 1015) 184 K/UL PAP TEST, THINPREP, [id number] 00:00:00 Test Item Value Reference Range Interpretation Comments SOURCE: (test code = Cervical/Endocervical 8001) SLIDES: (test code = 1 8011) LMP: (test code = 03/2017 8021) SPECIMEN ADEQUACY: (NOTE) (test code = 74400) INTERPRETATION: (test NO EPITHELIAL code = 26206) ABNORMALITY SEE BELOW TAXI PROPRIETOR: Santi Elizondo, (test code = 8101) CT(ASCP)IAC LOCATION: (test code (NOTE) = 27354) CPT: (test code = (NOTE) 8140) PAP TEST, THINPREP, [id number] 00:00:00 Test Item Value Reference Range Interpretation Comments SOURCE: (test code = Cervical/Endocervical 8001) SLIDES: (test code = 1 8011) LMP: (test code = 03/2017 8021) SPECIMEN ADEQUACY: (NOTE) (test code = 96324) INTERPRETATION: (test NO EPITHELIAL code = 05308) ABNORMALITY SEE BELOW TAXI PROPRIETOR: Santi Elizondo, (test code = 8101) CT(ASCP)IAC LOCATION: (test code (NOTE) = 34286) CPT: (test code = (NOTE) 8140) HPV HIGH RISK WITH GENOTYPE, [id number] 00:00:00 Test Item Value Reference Range Interpretation Comments HPV HIGH RISK INTERP (test code = NEGATIVE 98788) HPV 16 (test code = 44043) NEGATIVE HPV 18 (test code = 97778) NEGATIVE HPV, HR, OTHER GENOTYPES (test code NEGATIVE = 28604) HPV HIGH RISK WITH GENOTYPE, [id number] 00:00:00 Test Item Value Reference Range Interpretation Comments HPV HIGH RISK INTERP (test code = NEGATIVE 56473) HPV 16 (test code = 44103) NEGATIVE HPV 18 (test code = 00755) NEGATIVE HPV, HR, OTHER GENOTYPES (test code NEGATIVE = 99841) GC AND CHLAMYDIA AMPLIFIED, [id number] 00:00:00 Test Item Value Reference Range Interpretation Comments GONORRHEA, TMA (test code = 68744) NEGATIVE CHLAMYDIA, TMA (test code = 30076) NEGATIVE HIV AB/AG COMBO RFLX [id number] 00:00:00 Test Item Value Reference Range Interpretation Comments HIV 1/2 4TH GEN, RFLX CONF (test NON-REACTIVE code = 3514) GC AND CHLAMYDIA AMPLIFIED, [id number] 00:00:00 Test Item Value Reference Range Interpretation Comments GONORRHEA, TMA (test code = 53866) NEGATIVE CHLAMYDIA, TMA (test code = 87647) NEGATIVE HIV AB/AG COMBO RFLX [id number] 00:00:00 Test Item Value Reference Range Interpretation Comments HIV 1/2 4TH GEN, RFLX CONF (test NON-REACTIVE code = 3514) HEMOGLOBIN [id number] 00:00:00 Test Item Value Reference Range Interpretation Comments HEMOGLOBIN A1c (test code = 35815) 5.2 % HEMOGLOBIN [id number] 00:00:00 Test Item Value Reference Range Interpretation Comments HEMOGLOBIN A1c (test code = 12661) 5.2 % HEMOGLOBIN [id number] 00:00:00 Test Item Value Reference Range Interpretation Comments HEMOGLOBIN A1c (test code = 68479) 5.2 % [id number] 00:00:00 Test Item Value Reference Range Interpretation Comments TSH (test code = 2821) 2.020 UIU/ML [id number] 00:00:00 Test Item Value Reference Range Interpretation Comments TSH (test code = 2821) 2.020 UIU/ML [id number] 00:00:00 Test Item Value Reference Range Interpretation Comments TSH (test code = 2821) 2.020 UIU/ML COMPREHENSIVE METABOLIC [id number] 00:00:00 Test Item Value Reference Range Interpretation Comments GLUCOSE (test code = 2217) 90 MG/DL BUN (test code = 2208) 21 MG/DL CREATININE (test code = 2214) 0.42 MG/DL eGFR AMER. (test code 145 ML/MIN/1.73 = 07506) eGFR NON- AMER. (test 126 ML/MIN/1.73 code = 74705) CALC BUN/CREAT (test code = 50 RATIO [...] code = 2219) <5 U/L COMPREHENSIVE METABOLIC [id number] 00:00:00 Test Item Value Reference Range Interpretation Comments GLUCOSE (test code = 2217) 90 MG/DL BUN (test code = 2208) 21 MG/DL CREATININE (test code = 2214) 0.42 MG/DL eGFR AMER. (test code 145 ML/MIN/1.73 = 36357) eGFR NON- AMER. (test 126 ML/MIN/1.73 code = 90629) CALC BUN/CREAT (test code = 50 RATIO [...] (test code = 2219) <5 U/L LIPID [id number] 00:00:00 Test Item Value Reference Range Interpretation Comments CHOLESTEROL (test code = 2210) 186 MG/DL TRIGLYCERIDES (test code = 2232) 131 MG/DL HDL CHOLESTEROL (test code = 2220) 67 MG/DL CALC LDL CHOL (test code = 2237) 93 MG/DL RISK RATIO LDL/HDL (test code = 1.39 RATIO 2238) LIPID [id number] 00:00:00 Test Item Value Reference Range Interpretation Comments CHOLESTEROL (test code = 2210) 186 MG/DL TRIGLYCERIDES (test code = 2232) 131 MG/DL HDL CHOLESTEROL (test code = 2220) 67 MG/DL CALC LDL CHOL (test code = 2237) 93 MG/DL RISK RATIO LDL/HDL (test code = 1.39 RATIO 2238) CBC W/AUTO [id number] 00:00:00 Test Item Value Reference Range Interpretation [...] code = 1015) 152 K/UL CBC W/AUTO [id number] 00:00:00 Test Item Value Reference Range Interpretation [...] code = 1015) 152 K/UL CBC W/AUTO [id number] 00:00:00 Test Item Value Reference Range Interpretation [...]
--- NOTE | 2022-08-15 17:10 | ER ---
Nurse's Notes [facility] Name: Sidra Hodges Age: 47 yrs Sex: Female : 1975 Arrival Date: 08/15/2022 Time: 14:50 Bed 9 Private MD: Diagnosis: Sprain of foot;Pain in left foot;Pain in left ankle and joints of left foot Presentation: 08/15 14:51 Chief complaint: EMS states: was here around the 3rd and hospital didn't give her jh5 prescriptions and she is still in pain. Coronavirus screen: Vaccine status: Patient reports receiving the 2nd dose of the covid vaccine. Client denies travel out of the [place] in the last 14 days. Ebola Screen: Patient negative for fever greater than or equal to 101.5 degrees Fahrenheit, and additional compatible Ebola Virus Disease symptoms Patient denies exposure to infectious person. Patient denies travel to an Ebola-affected area in the 21 days before illness onset. Initial Sepsis Screen: Does the patient meet any 2 criteria? No. Patient's initial sepsis screen is negative. Does the patient have a suspected source of infection? No. Patient's initial sepsis screen is negative. Risk Assessment: Do you want to hurt yourself or someone else? Patient reports no desire to harm self or others. 14:51 Method Of Arrival: Ambulatory [facility] 14:51 Acuity: CARMITA 3 5 Triage Assessment: 14:53 General: Appears in no apparent distress. comfortable, Behavior is calm, cooperative, [facility] appropriate for age. 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 - Social history:: Smoking status: unknown. - Family history:: not pertinent. Vital Signs: 14:51 BP 109 / 78; Pulse 86; Resp 16; Temp 98.4; Pulse Ox 96% ; Weight 90.72 kg; Height 4 ft. [facility] 3 in. (129.54 cm); Pain 8/10; 14:51 Body Mass Index 54.06 (90.72 kg, 129.54 cm) [facility] ED Course: 14:50 Patient arrived in ED. as 14:53 Triage completed. [facility] 14:53 Arm band placed on right wrist. [facility] 14:54 Pascual Lundy MD is Attending Physician. [facility] 17:08 Blanco Weinberg MD is Referral Physician. [facility] 17:19 No provider procedures requiring assistance completed. Patient did not have IV access ss during this emergency room visit. Administered Medications: 17:34 Drug: Tylenol 650 mg Route: PO; ss Outcome: 17:10 Discharge ordered by . [facility] 17:19 Discharged to home ambulatory. ss 17:19 Condition: good 17:19 Discharge instructions given to patient, Instructed on discharge instructions, follow up and referral plans. Demonstrated understanding of instructions, follow-up care. 17:19 Patient left the ED. ss 17:34 Patient left the ED. ss Signatures: Pascual Lundy MD MD cha Martinez, Amelia as Smirch, Shelby, RN RN Lea Marmolejo, RN RN [facility]
--- NOTE | 2022-08-15 17:10 | EDPHYS ---
Physician Documentation [facility] Aditya Name: Sidra Hodges Age: 47 yrs Sex: Female : 1975 Arrival Date: 08/15/2022 Time: 14:50 Bed 9 Private MD: JENELLE Physician Pascual Lundy HPI: 08/15 17:02 This 47 yrs old Female presents to ER via Ambulatory with complaints of pain. ry 17:02 The patient presents with pain. The complaints affect the left foot, dorsum of left ry foot. Context: The problem was sustained at an unknown location. Onset: The symptoms/episode began/occurred 4 day(s) ago. Modifying factors: The symptoms are alleviated by elevation of extremity, the symptoms are aggravated by weight bearing, movement. Associated signs and symptoms: The patient has no apparent associated signs or symptoms. The patient has experienced similar episodes in the past, several times. 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 [employer] POL[employer]ER: 14:53 LMP N/A - Irregular menses [facility] Historical: - Allergies: 14:53 CARBAMAZEPINE DERIVATIVES; [facility] 14:53 Depakote; [facility] 14:53 Tegretol; [facility] - PMHx: 14:53 ADD/ADHD; Anxiety; Bipolar disorder; Chronic pain; hemorrhoids; Seizures; [facility] - PSHx: 14:53 R LEG SX; [facility] - Immunization history:: Adult Immunizations up to date. - Social history:: Smoking status: unknown. - Family history:: not pertinent. ROS: 17:02 Constitutional: Negative for fever, chills, and weight loss, Eyes: Negative for injury, ry pain, redness, and discharge, ENT: Negative for injury, pain, and discharge, Neck: Negative for injury, pain, and swelling, Cardiovascular: Negative for chest pain, palpitations, and edema, Respiratory: Negative for shortness of breath, cough, wheezing, and pleuritic chest pain, Abdomen/GI: Negative for abdominal pain, nausea, vomiting, diarrhea, and constipation, Back: Negative for injury and pain, : Negative for injury, bleeding, discharge, and swelling, Skin: Negative for injury, rash, and discoloration, Neuro: Negative for headache, weakness, numbness, tingling, and seizure, Psych: Negative for depression, anxiety, suicide ideation, homicidal ideation, and hallucinations, Allergy/Immunology: Negative for hives, rash, and allergies, Endocrine: Negative for neck swelling, polydipsia, polyuria, polyphagia, and marked weight changes. 17:02 MS/extremity: Positive for decreased range of motion, pain, of the left leg. Exam: 17:02 Constitutional: This is a well developed, well nourished patient who is awake, alert, ry and in no acute distress. Head/Face: Normocephalic, atraumatic. Eyes: Pupils equal round and reactive to light, extra-ocular motions intact. Lids and lashes normal. Conjunctiva and sclera are non-icteric and not injected. Cornea within normal limits. Periorbital areas with no swelling, redness, or edema. ENT: Nares patent. No nasal discharge, no septal abnormalities noted. Tympanic membranes are normal and external auditory canals are clear. Oropharynx with no redness, swelling, or masses, exudates, or evidence of obstruction, uvula midline. Mucous membranes moist. Neck: Trachea midline, no thyromegaly or masses palpated, and no cervical lymphadenopathy. Supple, full range of motion without nuchal rigidity, or vertebral point tenderness. No Meningismus. Chest/axilla: Normal chest wall appearance and motion. Nontender with no deformity. No lesions are appreciated. Cardiovascular: Regular rate and rhythm with a normal S1 and S2. No gallops, murmurs, or rubs. Normal PMI, no JVD. No pulse deficits. Respiratory: Lungs have equal breath sounds bilaterally, clear to auscultation and percussion. No rales, rhonchi or wheezes noted. No increased work of breathing, no retractions or nasal flaring. Abdomen/GI: Soft, non-tender, with normal bowel sounds. No distension or tympany. No guarding or rebound. No evidence of tenderness throughout. Back: No spinal tenderness. No costovertebral tenderness. Full range of motion. Skin: Warm, dry with normal turgor. Normal color with no rashes, no lesions, and no evidence of cellulitis. Neuro: Awake and alert, GCS 15, oriented to person, place, time, and situation. Cranial nerves II-XII grossly intact. Motor strength 5/5 in all extremities. Sensory grossly intact. Cerebellar exam normal. Normal gait. Psych: Awake, alert, with orientation to person, place and time. Behavior, mood, and affect are within normal limits. 17:02 Musculoskeletal/extremity: Extremities: grossly normal except: noted in the anterior aspect of left ankle and dorsum of left foot: pain. Vital Signs: 14:51 BP 109 / 78; Pulse 86; Resp 16; Temp 98.4; Pulse Ox 96% ; Weight 90.72 kg; Height 4 ft. jh5 3 in. (129.54 cm); Pain 8/10; 14:51 Body Mass Index 54.06 (90.72 kg, 129.54 cm) jh5 MDM: 14:54 Patient medically screened. ry 17:06 Differential diagnosis: sprain, arthritis. Data reviewed: vital signs, nurses notes, [facility] radiologic studies. Consideration of Admission/Observation Escalation of care including admission/observation considered. I considered the following discharge prescriptions or medication management in the emergency department Medications were administered in the Emergency Department. See MAR. Test considered but Not performed: X-ray: no new rauma, no new x ray. Care significantly affected by the following chronic conditions: anxiety, bipolar, add, adhd. Care significantly affected by the following Social Determinants of Health: Poor access to healthcare and/or lack of insurance, Poor access to transportation, Inadequate housing, Problems related to primary support group, Unemployment, Problems related to employment. Administered Medications: 17:34 Drug: Tylenol 650 mg Route: PO; ss Disposition Summary: 08/15/22 17:10 Discharge Ordered Location: Home ry Problem: new ry Symptoms: have improved ry Condition: Stable ry Diagnosis - Sprain of foot ry - Pain in left foot ry - Pain in left ankle and joints of left foot ry Followup: ry - With: Private Physician - When: 2 - 3 days - Reason: Recheck today's complaints, Continuance of care, Re-evaluation by your physician Followup: ry - With: Blanco Weinberg MD - When: 2 - 3 days - Reason: Recheck today's complaints, Continuance of care, Re-evaluation by your physician Discharge Instructions: - Discharge Summary Sheet ry - Joint Pain ry - Musculoskeletal Pain ry - Joint Pain, [id number] ry Forms: - Medication Reconciliation Form ry - Thank You Letter ry - Antibiotic Education ry - Prescription Opioid Use ry Prescriptions: - Tylenol 325 mg Oral Tablet - take 2 tablets by ORAL route every 6 hours as needed; 1 bottle; Refills: 0, ry Product Selection Permitted - Motrin IB 200 mg Oral Tablet - take 2 tablet by ORAL route every 6 hours As needed as needed with food; [address] [facility] tablet; Refills: 0, Product Selection Permitted Signatures: Pascual Lundy MD MD cha Smirch, Shelby RN RN ss Lea Marmolejo RN RN jh5
[2022-08-15] MEDS ORDERED: ACETAMINOPHEN 325 MG TABLET ONE (17:36)
[2022-08-15 18:17] VITALS: BP 109/78; TEMP 98.4; O2SAT 96
== END 2022-08-15 17:34 | disposition home or self-care (01) ==
LOC: ER 14:47
DX: S93.602A Unspecified sprain of left foot, initial encounter (principal); M25.572 Pain in left ankle and joints of left foot
CPT/HCPCS: 99283

== ENCOUNTER 2022-08-23 16:44 | Emergency (ER) | payer SELFPAY ==
--- OUTSIDE RECORDS SUMMARY | 2022-08-23 16:47 | XMS REPORT | Continuity of Care Document ---
:1975 Author Organization [facility] t Address [address] [place] [address] Care Team Providers Name Role Phone Swapnil Fung Primary Care Physician [phone] Problems This patient has no known problems. [...] Keflex 500 2020-0 No 1mg mg capsule -17 00:00: 00 [...] Procedure Date / Time Performed Performing Clinician [facility] e [address] Ecg Routine Ecg W/least 12 2017-09-24 00:00:00 Lds W/i r Plan of Care Planned Activity Planned Date Details Comments Source Goal Plan of Care Note [code = 29186-9] Goal Plan of Care Note [code = 81660-5] Goal Plan of Care Note [code = 63072-8] Goal Plan of Care Note [code = 61001-8] Goal Plan of Care Note [code = 39694-1] Goal Plan of Care Note [code = 80691-7] Goal Plan of Care Note [code = 51035-6] Goal Plan of Care Note [code = 51214-5] Goal Plan of Care Note [code = 24988-4] Goal Plan of Care Note [code = 22675-9] Goal Plan of Care Note [code = 39423-7] Goal Plan of Care Note [code = 34602-0] Goal Plan of Care Note [code = 82654-4] Goal Plan of Care Note [code = 27808-2] Goal Plan of Care Note [code = 20244-1] Goal Plan of Care Note [code = 90245-1] Goal Plan of Care Note [code = 22904-7] Goal Plan of Care Note [code = 94776-6] Goal Plan of Care Note [code = 60698-3] Goal Plan of Care Note [code = 42536-6] Goal Plan of Care Note [code = 88219-0] Goal Plan of Care Note [code = 73366-4] Goal Plan of Care Note [code = 13523-4] Goal Plan of Care Note [code = 66853-0] Goal Plan of Care Note [code = 97570-7] Goal Plan of Care Note [code = 56510-3] Goal Plan of Care Note [code = 92054-4] Goal Plan of Care Note [code = 89205-0] Goal Plan of Care Note [code = 96229-9] Encounters Start End Encounter Admission Attending Care Care Encounter Source Date/Time Date/Time Type Type Clinicians Facility Department ID 2022-08-21 2022-08-21 Outpatient [facility] [id number] 023 [facility] 14:11:33 14:11:33 022Cuong Contreras 2022-07-17 2022-07-17 Outpatient [facility] [id number] 023 [facility] 15:03:48 15:03:48 0124 F Ben 2022-07-17 2022-07-17 Outpatient [id number] 00:00:00 00:00:00 Visit [id number] Results Test Description Test Time Test Comments Results Result Comments Source SARS-CoV-2 (COVID-19) by RT-PCR (HIGH RISK) 2020-08-19 00:00 :00 Test Item Value Reference Range Interpretation Comme nts SARS-CoV-2 INTERPRETATION (test code = 42511) NEGATIVE SOURCE (test code = 27977) NOT SPECIFIED SARS-CoV-2 (COVID-19) by RT-PCR (HIGH RISK)2020-08-19 00:00:00 Test Item Value Reference Range Interpretation Comments SARS-CoV-2 INTERPRETATION (test NEGATIVE code = 09350) SOURCE (test code = 72245) NOT SPECIFIED PAP TEST, THINPREP, [id number] 00:00:00 Test Item Value Reference Range Interpretation Comments SOURCE: (test code = Cervical/Endocervical 8001) SLIDES: (test code = 1 8011) LMP: (test code = 8021) 06/2017 SPECIMEN ADEQUACY: (test (NOTE) code = 50935) INTERPRETATION: (test NILM/NO EPITH. code = 65491) ABNORMALITY;SEE BELOW SURVEILLANCE TECHNICIAN: (test Malek code = 8101) KANA Wen(ASCP) IAC LOCATION: (test code = (NOTE) 30171) CPT: (test code = 8140) (NOTE) PAP TEST, THINPREP, [id number] 00:00:00 Test Item Value Reference Range Interpretation Comments SOURCE: (test code = Cervical/Endocervical 8001) SLIDES: (test code = 1 8011) LMP: (test code = 8021) 06/2017 SPECIMEN ADEQUACY: (test (NOTE) code = 56707) INTERPRETATION: (test NILM/NO EPITH. code = 11189) ABNORMALITY;SEE BELOW SURVEILLANCE TECHNICIAN: (test Malek code = 8101) KANA Wen(ASCP) IAC LOCATION: (test code = (NOTE) 40280) CPT: (test code = 8140) (NOTE) HPV HIGH RISK WITH GENOTYPE, [id number] 00:00:00 Test Item Value Reference Range Interpretation Comments HPV HIGH RISK INTERP (test code = NEGATIVE 70998) HPV 16 (test code = 99146) NEGATIVE HPV 18 (test code = 81187) NEGATIVE HPV, HR, OTHER GENOTYPES (test code NEGATIVE = 26186) HPV HIGH RISK WITH GENOTYPE, [id number] 00:00:00 Test Item Value Reference Range Interpretation Comments HPV HIGH RISK INTERP (test code = NEGATIVE 38272) HPV 16 (test code = 03529) NEGATIVE HPV 18 (test code = 02785) NEGATIVE HPV, HR, OTHER GENOTYPES (test code NEGATIVE = 39170) Valproic Acid [id number] 08:03:22 Test Item Value Reference Range Interpretation Comments Valproic Acid Level (test code 57.6 ug/mL(g) 50.0-100.0 = Valproic Acid Level) Hemoglobin [id number] 09:36:00 Test Item Value Reference Range Interpretation Comments Hemoglobin A1c (test code 5.0 % 4.8-5.9 No n Diabetic = Hemoglobin A1c) 4.8-5.9%Di abetic <7.0% CT Shoulder w/o Contrast [id number] 16:49:13Patient: BHUMIKA JONES Date/Time01/09/2019 16:14 CDTReason for [...] Adam FSigned (Electronic Signature): 01/09/2019 4:49 pmRPR [id number] 21:33:20 Test Item Value Reference Range Interpretation [...] Expiration Dt) XR Shoulder Complete 2+ Views [id number] 15:41:25Patient: BHUMIKA JONES Date/Time01/07/2019 15:25 CDTReason for [...] CSigned (Electronic Signature): 01/07/2019 3:41 pmThyroid Stimulating [id number] 03:07:04 Test Item Value Reference Range Interpretation Comments TSH (test code = TSH) 9.650 mIU/mL 0.270-4.200 H Lipid [id number] 03:07:03 Test Item Value Reference Range Interpretation Comments Cholesterol Total 199 mg/dL 0-200 RISK OF HE ART (test code = DISEASEPublishe d by Cholesterol Total) [employer] [place] Optimal Borderl ine [...] LDL/HDL Ratio=L DL Calc/HDL Chol HCG Qualitative [id number] 02:33:13 Test Item Value Reference Range Interpretation Comments HCG, Serum Qual (test code = HCG, Negative Serum Qual) Lot # (test code = Lot #) [id number] N Expiration Dt (test code = 2020-04-23 N Expiration Dt) Neg Control (test code = Neg Negative Control) Pos Control (test code = Pos Positive Control) Internal QC (test code = Internal Acceptable QC) Drugs of Abuse Urine [id number] 18:58:11 Test Item Value Reference Range Interpretation [...] (test code = Cannabinoid Screen Ur) Alcohol [id number] 18:47:34 Test Item Value Reference Range Interpretation Comments Ethanol Level (test <0.00 g/dL 0.00-0.01 Intoxica isabel 0.080 g/dL code = Ethanol or more Level) Ethanol Inst (test <0 N code = Ethanol Inst) Comprehensive Metabolic [id number] 18:47:33 Test Item Value Reference Range Interpretation [...] A/G 1.0 ratio N Ratio) Comprehensive Metabolic [id number] 18:47:33 Test Item Value Reference Range Interpretation [...] multiply by 0.7 42. Results for pat arianas <18 years of ag e have not been validated by [facility] MDRD study and should be interpreted wit h caution. eGFR R esult Interpretation: eGFR > or = 60 is in the Normal RangeeGF R < 60 may mean kid betzaida diseaseeGFR < 1 5 may mean kidney failure Rang es recommended by the National Kidney Foundation, http://nkdep.ni h.gov Comprehensive Metabolic [id number] 18:47:33 Test Item Value Reference Range Interpretation [...] not provided, and t he patient is -Shameak n, multiply by 1.2 12. If sex is not provided, and t he patient is fema le, multiply by 0.7 42. Results for pat ients <18 years of ag e have not been validated by [facility] MDRD study and should [...] ag e have not been validated by [facility] MDRD study and should be interpreted wit h caution. eGFR R esult Interpretation: eGFR > or = 60 is in the Normal RangeeGF R < 60 may mean kid betzaida diseaseeGFR < 1 5 may mean kidney failure Rang es recommended by the National Kidney Foundation, http://nkdep.ni h.gov Complete Blood Count with [id number] 18:15:23 Test Item Value Reference Range Interpretation [...] code = IPF) 0 % N Automated [id number] 18:15:23 Test Item Value Reference Range Interpretation Comments Neutro Auto (test code = Neutro 42.1 % 36.0-70.0 Auto) Lymph Auto (test code = Lymph Auto) 40.0 % 12.0-44.0 [place] Auto (test code = [place] Auto) 12.2 % 0.0-11.0 H Eos, Auto (test code = Eos, Auto) 4.9 % 0.0-7.0 Basophil Auto (test code = Basophil 0.6 % 0.0-2.0 Auto) Neutro Absolute (test code = Neutro 2.2 x10 1.6-7.4 Absolute) Lymph Absolute (test code = Lymph 2.06 x10 .50-4.60 Absolute) [place] Absolute (test code = [place] .63 x10 .00-1.20 Absolute) Eos Absolute (test code = Eos 0.25 x10 0.00-0.74 Absolute) Baso Absolute (test code = Baso 0.03 x10 0.00-0.21 Absolute) IG [id number] 18:15:23 Test Item Value Reference Range Interpretation Comments IG (test code = IG) 0.2 % 0.0-5.0 IG Abs (test code = IG Abs) 0 x10 N VALPROIC [id number] 00:00:00 Test Item Value Reference Range Interpretation Comments VALPROIC ACID (test code = 3025) 69.8 UG/ML VALPROIC [id number] 00:00:00 Test Item Value Reference Range Interpretation Comments VALPROIC ACID (test code = 3025) 69.8 UG/ML URINE CULTURE, NO [id number] 00:00:00 Test Item Value Reference Range Interpretation Comments URINE CULTURE, NO SPECIMEN NUMBER: SENS (test code = [id number] 01490) URINE CULTURE, NO [id number] 00:00:00 Test Item Value Reference Range Interpretation Comments URINE CULTURE, NO SPECIMEN NUMBER: SENS (test code = [id number] 62701) [id number] 00:00:00 Test Item Value Reference Range Interpretation Comments FERRITIN (test code = 2075) 15 NG/ML [id number] 00:00:00 Test Item Value Reference Range Interpretation Comments TRANSFERRIN (test code = 4936) 269 MG/DL [id number] 00:00:00 Test Item Value Reference Range Interpretation Comments TRANSFERRIN (test code = 4936) 269 MG/DL FOLIC [id number] 00:00:00 Test Item Value Reference Range Interpretation Comments FOLIC ACID (test code = 2695) 5.4 UG/L FOLIC [id number] 00:00:00 Test Item Value Reference Range Interpretation Comments FOLIC ACID (test code = 2695) 5.4 UG/L IRON BINDING CAPACITY AND IRON AND % [id number] 00:00:00 Test Item Value Reference Range Interpretation Comments IRON, SERUM (test code = 2) 42 UG/DL UNSATURATED IBC (test code = 87150) 279 UG/DL CALC TOTAL IBC (test code = 7) 321 UG/DL CALC % IRON SAT (test code = 2078) 13 % IRON BINDING CAPACITY AND IRON AND % [id number] 00:00:00 Test Item Value Reference Range Interpretation Comments IRON, SERUM (test code = 2) 42 UG/DL UNSATURATED IBC (test code = 47460) 279 UG/DL CALC TOTAL IBC (test code = 7) 321 UG/DL CALC % IRON SAT (test code = 2078) 13 % [id number] 00:00:00 Test Item Value Reference Range Interpretation Comments FERRITIN (test code = 2075) 15 NG/ML CULTURE, URINE [ADDED]2018-06-12 00:00:00 Test Item Value Reference Range Interpretation Comments CULTURE, URINE (test SPECIMEN NUMBER: code = 73972) [id number] CULTURE, URINE [ADDED]2018-06-12 00:00:00 Test Item Value Reference Range Interpretation Comments CULTURE, URINE (test SPECIMEN NUMBER: code = 57489) [id number] COMPREHENSIVE METABOLIC [id number] 00:00:00 Test Item Value Reference Range Interpretation Comments GLUCOSE (test code = 2217) 86 MG/DL BUN (test code = 2208) 16 MG/DL CREATININE (test code = 2214) 0.45 MG/DL eGFR AMER. (test code 141 ML/MIN/1.73 = 45261) eGFR NON- AMER. (test 122 ML/MIN/1.73 code = 81414) CALC BUN/CREAT (test code = 36 RATIO [...] CALC GLOBULIN (test code = 3.1 G/DL 0) CALC A/G RATIO (test code = 1.1 RATIO 2233) BILIRUBIN, TOTAL (test code = <0.2 MG/DL 2206) ALKALINE PHOSPHATASE (test 76 U/L code = 2204) AST (test code = 2218) 24 U/L ALT (test code = 2219) 17 U/L COMPREHENSIVE METABOLIC [id number] 00:00:00 Test Item Value Reference Range Interpretation Comments GLUCOSE (test code = 2217) 86 MG/DL BUN (test code = 2208) 16 MG/DL CREATININE (test code = 2214) 0.45 MG/DL eGFR AMER. (test code 141 ML/MIN/1.73 = 38994) eGFR NON- AMER. (test 122 ML/MIN/1.73 code = 95088) CALC BUN/CREAT (test code = 36 RATIO [...] (test code = 2219) 17 U/L VALPROIC [id number] 00:00:00 Test Item Value Reference Range Interpretation Comments VALPROIC ACID (test code = 3025) 100.9 UG/ML VALPROIC [id number] 00:00:00 Test Item Value Reference Range Interpretation Comments VALPROIC ACID (test code = 3025) 100.9 UG/ML CBC W/AUTO [id number] 00:00:00 Test Item Value Reference Range Interpretation [...] code = 1015) 184 K/UL CBC W/AUTO [id number] 00:00:00 Test Item Value Reference Range Interpretation [...] code = 1015) 184 K/UL CBC W/AUTO [id number] 00:00:00 Test Item Value Reference Range Interpretation [...] = 1015) 184 K/UL PAP TEST, THINPREP, [id number] 00:00:00 Test Item Value Reference Range Interpretation Comments SOURCE: (test code = Cervical/Endocervical 8001) SLIDES: (test code = 1 8011) LMP: (test code = 03/2017 8021) SPECIMEN ADEQUACY: (NOTE) (test code = 56145) INTERPRETATION: (test NO EPITHELIAL code = 30244) ABNORMALITY SEE BELOW SURVEILLANCE TECHNICIAN: Santi Elizondo, (test code = 8101) CT(ASCP)IAC LOCATION: (test code (NOTE) = 97573) CPT: (test code = (NOTE) 8140) PAP TEST, THINPREP, [id number] 00:00:00 Test Item Value Reference Range Interpretation Comments SOURCE: (test code = Cervical/Endocervical 8001) SLIDES: (test code = 1 8011) LMP: (test code = 03/2017 8021) SPECIMEN ADEQUACY: (NOTE) (test code = 18133) INTERPRETATION: (test NO EPITHELIAL code = 89024) ABNORMALITY SEE BELOW SURVEILLANCE TECHNICIAN: Santi Elizondo, (test code = 8101) CT(ASCP)IAC LOCATION: (test code (NOTE) = 95911) CPT: (test code = (NOTE) 8140) HPV HIGH RISK WITH GENOTYPE, [id number] 00:00:00 Test Item Value Reference Range Interpretation Comments HPV HIGH RISK INTERP (test code = NEGATIVE 20083) HPV 16 (test code = 01858) NEGATIVE HPV 18 (test code = 62245) NEGATIVE HPV, HR, OTHER GENOTYPES (test code NEGATIVE = 80155) HPV HIGH RISK WITH GENOTYPE, [id number] 00:00:00 Test Item Value Reference Range Interpretation Comments HPV HIGH RISK INTERP (test code = NEGATIVE 86056) HPV 16 (test code = 58909) NEGATIVE HPV 18 (test code = 06084) NEGATIVE HPV, HR, OTHER GENOTYPES (test code NEGATIVE = 86270) GC AND CHLAMYDIA AMPLIFIED, [id number] 00:00:00 Test Item Value Reference Range Interpretation Comments GONORRHEA, TMA (test code = 30848) NEGATIVE CHLAMYDIA, TMA (test code = 72541) NEGATIVE HIV AB/AG COMBO RFLX [id number] 00:00:00 Test Item Value Reference Range Interpretation Comments HIV 1/2 4TH GEN, RFLX CONF (test NON-REACTIVE code = 3514) GC AND CHLAMYDIA AMPLIFIED, [id number] 00:00:00 Test Item Value Reference Range Interpretation Comments GONORRHEA, TMA (test code = 12882) NEGATIVE CHLAMYDIA, TMA (test code = 10268) NEGATIVE HIV AB/AG COMBO RFLX [id number] 00:00:00 Test Item Value Reference Range Interpretation Comments HIV 1/2 4TH GEN, RFLX CONF (test NON-REACTIVE code = 3514) CBC W/AUTO [id number] 00:00:00 Test Item Value Reference Range Interpretation [...] COUNT (test code = 1015) 152 K/UL HEMOGLOBIN [id number] 00:00:00 Test Item Value Reference Range Interpretation Comments HEMOGLOBIN A1c (test code = 56950) 5.2 % HEMOGLOBIN [id number] 00:00:00 Test Item Value Reference Range Interpretation Comments HEMOGLOBIN A1c (test code = 65638) 5.2 % HEMOGLOBIN [id number] 00:00:00 Test Item Value Reference Range Interpretation Comments HEMOGLOBIN A1c (test code = 00524) 5.2 % [id number] 00:00:00 Test Item Value Reference Range Interpretation Comments TSH (test code = 2821) 2.020 UIU/ML [id number] 00:00:00 Test Item Value Reference Range Interpretation Comments TSH (test code = 2821) 2.020 UIU/ML [id number] 00:00:00 Test Item Value Reference Range Interpretation Comments TSH (test code = 2821) 2.020 UIU/ML COMPREHENSIVE METABOLIC [id number] 00:00:00 Test Item Value Reference Range Interpretation Comments GLUCOSE (test code = 2217) 90 MG/DL BUN (test code = 2208) 21 MG/DL CREATININE (test code = 2214) 0.42 MG/DL eGFR AMER. (test code 145 ML/MIN/1.73 = 95175) eGFR NON- AMER. (test 126 ML/MIN/1.73 code = 42134) CALC BUN/CREAT (test code = 50 RATIO [...] code = 2219) <5 U/L COMPREHENSIVE METABOLIC [id number] 00:00:00 Test Item Value Reference Range Interpretation Comments GLUCOSE (test code = 2217) 90 MG/DL BUN (test code = 2208) 21 MG/DL CREATININE (test code = 2214) 0.42 MG/DL eGFR AMER. (test code 145 ML/MIN/1.73 = 85910) eGFR NON- AMER. (test 126 ML/MIN/1.73 code = 05027) CALC BUN/CREAT (test code = 50 RATIO [...] BILIRUBIN, TOTAL (test code = 0.1 MG/DL 7) ALKALINE PHOSPHATASE (test 54 U/L code = 2204) AST (test code = 2218) 11 U/L ALT (test code = 2219) <5 U/L LIPID [id number] 00:00:00 Test Item Value Reference Range Interpretation Comments CHOLESTEROL (test code = 2210) 186 MG/DL TRIGLYCERIDES (test code = 2232) 131 MG/DL HDL CHOLESTEROL (test code = 2220) 67 MG/DL CALC LDL CHOL (test code = 2237) 93 MG/DL RISK RATIO LDL/HDL (test code = 1.39 RATIO 2238) LIPID [id number] 00:00:00 Test Item Value Reference Range Interpretation Comments CHOLESTEROL (test code = 2210) 186 MG/DL TRIGLYCERIDES (test code = 2232) 131 MG/DL HDL CHOLESTEROL (test code = 2220) 67 MG/DL CALC LDL CHOL (test code = 2237) 93 MG/DL RISK RATIO LDL/HDL (test code = 1.39 RATIO 2238) CBC W/AUTO [id number] 00:00:00 Test Item Value Reference Range Interpretation [...] code = 1015) 152 K/UL CBC W/AUTO [id number] 00:00:00 Test Item Value Reference Range Interpretation [...]
[2022-08-23] MEDS ORDERED: ACETAMINOPHEN 500 MG TAB ONE (17:26)
--- NOTE | 2022-08-23 18:37 | RAD REPORT ---
EXAM DESCRIPTION: RAD - Ankle Left 3 View - 08/23/2022 6:03 pm CLINICAL HISTORY: Pain COMPARISON: 08/11/2022 FINDINGS: Three views of the left ankle. Stable alignment of oblique mildly displaced distal fibular fracture. Developing bony callus. Entheso sher at the Achilles tendon attachment again noted No joint effusion seen. No joint space narrowing. Soft tissue swelling about the ankle. IMPRESSION: Healing known distal fibular fracture as above 2
--- NOTE | 2022-08-23 18:56 | EDPHYS ---
Physician Documentation [facility] Name: Sidra Hodges Age: 47 yrs Sex: Female : 1975 Arrival Date: 08/23/2022 Time: 16:45 Bed IW4 Private MD: ED Physician Yong Banks HPI: 08/23 17:51 This 47 yrs old Female presents to ER via Ambulatory with complaints of ankle kb pain. 17:51 The patient presents with pain, tenderness. The complaints affect the left ankle. kb Onset: The symptoms/episode began/occurred 1.5 month(s) ago. Context: resulted from Known fracture, The patient can fully bear weight on the affected extremity. the patient is able to ambulate. Associated signs and symptoms: Pertinent positives: swelling, Pertinent negatives: calf tenderness, fever, nausea, numbness, rash, tingling, vomiting, warmth, weakness. Modifying factors: The symptoms are alleviated by nothing, the symptoms are aggravated by weight bearing, movement. Severity of symptoms: At their worst the symptoms were moderate, in the emergency department the symptoms are unchanged. The patient has not experienced similar symptoms in the past. The patient has not recently seen a physician. Historical: - Allergies: 17:19 CARBAMAZEPINE DERIVATIVES; aa5 17:19 Depakote; aa5 17:19 Tegretol; aa5 - PMHx: 17:19 ADD/ADHD; Anxiety; Bipolar disorder; Chronic pain; hemorrhoids; Seizures; aa5 - PSHx: 17:19 R LEG SX; aa5 - Immunization history:: Adult Immunizations unknown. - Social history:: Smoking status: Patient denies any tobacco usage or history of. ROS: 17:46 Constitutional: Negative for fever, chills, and weight loss. kb 17:46 MS/extremity: Positive for pain, of the left lateral ankle. 17:46 All other systems are negative. Exam: 17:46 Constitutional: This is a well developed, well nourished patient who is awake, alert, kb and in no acute distress. Head/Face: Normocephalic, atraumatic. ENT: Moist Mucous membranes Respiratory: Respirations even and unlabored. No increased work of breathing. Talking in full sentences Skin: Warm, dry with normal turgor. Normal color. Neuro: Awake and alert, GCS 15, oriented to person, place, time, and situation. Moves all extremities. Normal gait. Psych: Awake, alert, with orientation to person, place and time. Behavior, mood, and affect are within normal limits. 17:46 Musculoskeletal/extremity: Extremities: grossly normal except: noted in the left lateral ankle: pain, tenderness, ROM: intact in all extremities, Circulation is intact in all extremities. Sensation intact. Weight bearing: able to fully bear weight. Vital Signs: 17:18 BP 106 / 82; Pulse 77; Resp 18 S; Temp 98.2(TE); Pulse Ox 99% on R/A; aa5 MDM: 16:45 Patient medically screened. kb 17:50 Differential diagnosis: fracture, sprain. Data reviewed: vital signs, nurses notes. kb Historians other than the Patient: EMS: [facility]. 17:50 ED course: Patient is a 47-year-old female who presents with left ankle pain that has kb been ongoing since June. Patient has been diagnosed with a fibular fracture from that time. Patient has been ambulatory with a walking boot. On exam patient has tenderness to the left ankle. Patient has not had any follow-up care with orthopedist. X-ray ordered to evaluate for fracture.. 18:54 Counseling: I had a detailed discussion with the patient and/or guardian regarding: the kb historical points, exam findings, and any diagnostic results supporting the discharge/admit diagnosis, radiology results, the need for outpatient follow up, a orthopedic surgeon, to return to the emergency department if symptoms worsen or persist or if there are any questions or concerns that arise at home. 08/23 16:46 Order name: Ankle Left 3 View XRAY; Complete Time: 18:41 kb Administered Medications: 17:23 Drug: Tylenol 1000 mg Route: PO; aa5 Disposition Summary: 08/23/22 18:55 Discharge Ordered Location: Home kb Condition: Stable kb Diagnosis - Pain in left ankle and joints of left foot - s/t distal fibular fracture kb Followup: kb - With: Emergency Department - When: As needed - Reason: Worsening of condition Followup: kb - With: Private Physician - When: 2 - 3 days - Reason: Recheck today's complaints, Continuance of care, Re-evaluation by your physician Discharge Instructions: - Discharge Summary Sheet kb - Musculoskeletal Pain kb Forms: - Medication Reconciliation Form kb - Thank You Letter kb - Antibiotic Education kb - Prescription Opioid Use kb Signatures: Dispatcher [employer] EDCristina Salguero, AIR CONDITIONING INSTALLER-C AIR CONDITIONING INSTALLER-Maggy Hummel, RN RN aa5 Corrections: (The following items were deleted from the chart) 17:50 17:46 Musculoskeletal/extremity: Extremities: grossly normal except: noted in the left kb lateral ankle: pain, tenderness, ROM: intact in all extremities, Circulation is intact in all extremities. Sensation intact. kb
--- NOTE | 2022-08-23 18:56 | ER ---
Nurse's Notes [facility] Name: Sidra Hodges Age: 47 yrs Sex: Female : 1975 Arrival Date: 08/23/2022 Time: 16:45 Bed IW4 Private MD: Diagnosis: Pain in left ankle and joints of left foot-s/t distal fibular fracture Presentation: 08/23 17:18 Chief complaint: Patient states: left ankle pain, pt reports being seen here for same aa5 complaint. Coronavirus screen: At this time, the client does not indicate any symptoms associated with coronavirus-19. Ebola Screen: Patient denies travel to an Ebola-affected area in the 21 days before illness onset. Initial Sepsis Screen: Does the patient meet any 2 criteria? No. Patient's initial sepsis screen is negative. Does the patient have a suspected source of infection? No. Patient's initial sepsis screen is negative. Risk Assessment: Do you want to hurt yourself or someone else? Patient reports no desire to harm self or others. Onset of symptoms was 2022. 17:18 Acuity: CARMITA 4 aa5 17:18 Method Of Arrival: Ambulatory aa5 Historical: - Allergies: 17:19 CARBAMAZEPINE DERIVATIVES; aa5 17:19 Depakote; aa5 17:19 Tegretol; aa5 - PMHx: 17:19 ADD/ADHD; Anxiety; Bipolar disorder; Chronic pain; hemorrhoids; Seizures; aa5 - PSHx: 17:19 R LEG SX; aa5 - Immunization history:: Adult Immunizations unknown. - Social history:: Smoking status: Patient denies any tobacco usage or history of. Assessment: 19:24 Reassessment: Patient and/or family updated on plan of care and expected duration. Pain vc1 level reassessed. states pain is better. Vital Signs: 17:18 BP 106 / 82; Pulse 77; Resp 18 S; Temp 98.2(TE); Pulse Ox 99% on R/A; aa5 ED Course: 16:45 Patient arrived in ED. kb 16:45 Cristina Sewell FNP-C [facility] kb 16:45 Yong Banks MD is Attending Physician. kb 17:18 Arm band placed on. aa5 17:19 Triage completed. aa5 18:05 Ankle Left 3 View XRAY In Process Unspecified. EDMS Administered Medications: 17:23 Drug: Tylenol 1000 mg Route: PO; aa5 Medication: 19:24 VIS not applicable for this client. vc1 Outcome: 18:55 Discharge ordered by . elpidio 19:23 Discharged to home ambulatory. vc1 19:23 Condition: good 19:23 Discharge instructions given to patient, Instructed on discharge instructions, follow up and referral plans. medication usage. 19:23 Demonstrated understanding of instructions, follow-up care. 19:24 Patient left the ED. vc1 Signatures: Dispatcher [employer] EDMS Cristina Sewell, HIRE CAR DRIVER-C HIRE CAR DRIVER-Maggy Hummel RN RN aa5 Dayanara Paz RN RN vc1
[2022-08-23 19:28] VITALS: BP 106/82; TEMP 98.2; O2SAT 99
== END 2022-08-23 19:24 | disposition home or self-care (01) ==
LOC: ER 16:44
DX: M25.572 Pain in left ankle and joints of left foot (principal); S82.832S Other fracture of upper and lower end of left fibula, sequela
CPT/HCPCS: 99283

== ENCOUNTER 2022-09-03 23:00 | Emergency (ER) | payer SELFPAY ==
--- OUTSIDE RECORDS SUMMARY | 2022-09-03 23:04 | XMS REPORT | Continuity of Care Document ---
:1975 Author Organization [facility] t Address [address] [place] [address] Care Team Providers Name Role Phone Swapnil Fung Primary Care Physician [phone] Problems This patient has no known problems. [...] Procedure Date / Time Performed Performing Clinician [facility] e [address] Ecg Routine Ecg W/least 12 2017-09-24 00:00:00 Lds W/i r Plan of Care Planned Activity Planned Date Details Comments Source Goal Plan of Care Note [code = 18390-4] Goal Plan of Care Note [code = 54263-0] Goal Plan of Care Note [code = 28847-7] Goal Plan of Care Note [code = 60115-7] Goal Plan of Care Note [code = 92251-4] Goal Plan of Care Note [code = 95942-6] Goal Plan of Care Note [code = 16720-3] Goal Plan of Care Note [code = 52886-9] Goal Plan of Care Note [code = 47365-6] Goal Plan of Care Note [code = 68995-3] Goal Plan of Care Note [code = 66590-4] Goal Plan of Care Note [code = 26531-0] Goal Plan of Care Note [code = 31280-1] Goal Plan of Care Note [code = 44542-4] Goal Plan of Care Note [code = 26441-7] Goal Plan of Care Note [code = 18551-4] Goal Plan of Care Note [code = 79077-0] Goal Plan of Care Note [code = 39222-1] Goal Plan of Care Note [code = 39683-6] Goal Plan of Care Note [code = 27632-8] Goal Plan of Care Note [code = 69069-5] Goal Plan of Care Note [code = 88589-4] Goal Plan of Care Note [code = 06095-2] Goal Plan of Care Note [code = 18234-5] Goal Plan of Care Note [code = 14567-7] Goal Plan of Care Note [code = 02588-4] Goal Plan of Care Note [code = 73132-1] Goal Plan of Care Note [code = 59469-0] Goal Plan of Care Note [code = 01523-2] Encounters Start End Encounter Admission Attending Care Care Encounter Source Date/Time Date/Time Type Type Clinicians Facility Department ID 2022-08-21 2022-08-21 Outpatient [facility] [id number] Henry 14:11:33 14:11:33 022Cuong Contreras 2022-07-17 2022-07-17 Outpatient [facility] SFA [id number] Henry 15:03:48 15:03:48 0124 F Ben 2022-07-17 2022-07-17 Outpatient [id number] 00:00:00 00:00:00 Visit [id number] Results Test Description Test Time Test Comments Results Result Comments Source SARS-CoV-2 (COVID-19) by RT-PCR (HIGH RISK) 2020-08-19 00:00 :00 Test Item Value Reference Range Interpretation Comme nts SARS-CoV-2 INTERPRETATION (test code = 26474) NEGATIVE SOURCE (test code = 27296) NOT SPECIFIED SARS-CoV-2 (COVID-19) by RT-PCR (HIGH RISK)2020-08-19 00:00:00 Test Item Value Reference Range Interpretation Comments SARS-CoV-2 INTERPRETATION (test NEGATIVE code = 53568) SOURCE (test code = 85950) NOT SPECIFIED PAP TEST, THINPREP, [id number] 00:00:00 Test Item Value Reference Range Interpretation Comments SOURCE: (test code = Cervical/Endocervical 8001) SLIDES: (test code = 1 8011) LMP: (test code = 8021) 06/2017 SPECIMEN ADEQUACY: (test (NOTE) code = 35230) INTERPRETATION: (test NILM/NO EPITH. code = 60230) ABNORMALITY;SEE BELOW WIRE MESH FILTER FABRICATOR: (test Malek code = 8101) KANA Wen(ASCP) IAC LOCATION: (test code = (NOTE) 66785) CPT: (test code = 8140) (NOTE) PAP TEST, THINPREP, [id number] 00:00:00 Test Item Value Reference Range Interpretation Comments SOURCE: (test code = Cervical/Endocervical 8001) SLIDES: (test code = 1 8011) LMP: (test code = 8021) 06/2017 SPECIMEN ADEQUACY: (test (NOTE) code = 16400) INTERPRETATION: (test NILM/NO EPITH. code = 93697) ABNORMALITY;SEE BELOW WIRE MESH FILTER FABRICATOR: (test Malek code = 8101) KANA Wen(ASCP) IAC LOCATION: (test code = (NOTE) 13413) CPT: (test code = 8140) (NOTE) HPV HIGH RISK WITH GENOTYPE, [id number] 00:00:00 Test Item Value Reference Range Interpretation Comments HPV HIGH RISK INTERP (test code = NEGATIVE 27732) HPV 16 (test code = 52609) NEGATIVE HPV 18 (test code = 92144) NEGATIVE HPV, HR, OTHER GENOTYPES (test code NEGATIVE = 66921) HPV HIGH RISK WITH GENOTYPE, [id number] 00:00:00 Test Item Value Reference Range Interpretation Comments HPV HIGH RISK INTERP (test code = NEGATIVE 51015) HPV 16 (test code = 32722) NEGATIVE HPV 18 (test code = 18659) NEGATIVE HPV, HR, OTHER GENOTYPES (test code NEGATIVE = 99737) Valproic Acid [id number] 08:03:22 Test Item Value Reference Range Interpretation Comments Valproic Acid Level (test code 57.6 ug/mL(g) 50.0-100.0 = Valproic Acid Level) Hemoglobin [id number] 09:36:00 Test Item Value Reference Range Interpretation Comments Hemoglobin A1c (test code 5.0 % 4.8-5.9 No n Diabetic = Hemoglobin A1c) 4.8-5.9%Di abetic <7.0% CT Shoulder w/o Contrast [id number] 16:49:13Patient: BHUMIKA JONES Date/Time01/09/2019 16:14 CDTReason for [...] Adam FSigned (Electronic Signature): 01/09/2019 4:49 pmRPR [id number] 21:33:20 Test Item Value Reference Range Interpretation [...] Expiration Dt) XR Shoulder Complete 2+ Views [id number] 15:41:25Patient: BHUMIKA JONES Date/Time01/07/2019 15:25 CDTReason for [...] CSigned (Electronic Signature): 01/07/2019 3:41 pmThyroid Stimulating [id number] 03:07:04 Test Item Value Reference Range Interpretation Comments TSH (test code = TSH) 9.650 mIU/mL 0.270-4.200 H Lipid [id number] 03:07:03 Test Item Value Reference Range Interpretation Comments Cholesterol Total 199 mg/dL 0-200 RISK OF HE ART (test code = DISEASEPublishe d by Cholesterol Total) [employer] [place] Optimal Borderl ine [...] LDL/HDL Ratio=L DL Calc/HDL Chol HCG Qualitative [id number] 02:33:13 Test Item Value Reference Range Interpretation Comments HCG, Serum Qual (test code = HCG, Negative Serum Qual) Lot # (test code = Lot #) [id number] N Expiration Dt (test code = 2020-04-23 N Expiration Dt) Neg Control (test code = Neg Negative Control) Pos Control (test code = Pos Positive Control) Internal QC (test code = Internal Acceptable QC) Drugs of Abuse Urine [id number] 18:58:11 Test Item Value Reference Range Interpretation [...] (test code = Cannabinoid Screen Ur) Alcohol [id number] 18:47:34 Test Item Value Reference Range Interpretation Comments Ethanol Level (test <0.00 g/dL 0.00-0.01 Intoxica isabel 0.080 g/dL code = Ethanol or more Level) Ethanol Inst (test <0 N code = Ethanol Inst) Comprehensive Metabolic [id number] 18:47:33 Test Item Value Reference Range Interpretation [...] A/G 1.0 ratio N Ratio) Comprehensive Metabolic [id number] 18:47:33 Test Item Value Reference Range Interpretation [...] ag e have not been validated by [facility] MDRD study and should be interpreted wit h caution. eGFR R esult Interpretation: eGFR > or = 60 is in the Normal RangeeGF R < 60 may mean kid betzaida diseaseeGFR < 1 5 may mean kidney failure Rang es recommended by the National Kid[employer] Foundation, http://nkdep.ni h.gov Comprehensive Metabolic [id number] 18:47:33 Test Item Value Reference Range Interpretation [...] ag e have not been validated by [facility] MDRD study and should be [...] ag e have not been validated by [facility] MDRD study and should be interpreted wit h caution. eGFR R esult Interpretation: eGFR > or = 60 is in the Normal RangeeGF R < 60 may mean kid betzaida diseaseeGFR < 1 5 may mean kidney failure Rang es recommended by the National Kidney Foundation, http://nkdep.ni h.gov Complete Blood Count with [id number] 18:15:23 Test Item Value Reference Range Interpretation [...] code = IPF) 0 % N Automated [id number] 18:15:23 Test Item Value Reference Range Interpretation Comments Neutro Auto (test code = Neutro 42.1 % 36.0-70.0 Auto) Lymph Auto (test code = Lymph Auto) 40.0 % 12.0-44.0 Elliott Auto (test code = Elliott Auto) 12.2 % 0.0-11.0 H Eos, Auto (test code = Eos, Auto) 4.9 % 0.0-7.0 Basophil Auto (test code = Basophil 0.6 % 0.0-2.0 Auto) Neutro Absolute (test code = Neutro 2.2 x10 1.6-7.4 Absolute) Lymph Absolute (test code = Lymph 2.06 x10 .50-4.60 Absolute) Elliott Absolute (test code = Elliott .63 x10 .00-1.20 Absolute) Eos Absolute (test code = Eos 0.25 x10 0.00-0.74 Absolute) Baso Absolute (test code = Baso 0.03 x10 0.00-0.21 Absolute) IG [id number] 18:15:23 Test Item Value Reference Range Interpretation Comments IG (test code = IG) 0.2 % 0.0-5.0 IG Abs (test code = IG Abs) 0 x10 N VALPROIC [id number] 00:00:00 Test Item Value Reference Range Interpretation Comments VALPROIC ACID (test code = 3025) 69.8 UG/ML VALPROIC [id number] 00:00:00 Test Item Value Reference Range Interpretation Comments VALPROIC ACID (test code = 3025) 69.8 UG/ML URINE CULTURE, NO [id number] 00:00:00 Test Item Value Reference Range Interpretation Comments URINE CULTURE, NO SPECIMEN NUMBER: SENS (test code = 88184094 07330) URINE CULTURE, NO [id number] 00:00:00 Test Item Value Reference Range Interpretation Comments URINE CULTURE, NO SPECIMEN NUMBER: SENS (test code = [id number] 36121) [id number] 00:00:00 Test Item Value Reference Range Interpretation Comments FERRITIN (test code = 2075) 15 NG/ML [id number] 00:00:00 Test Item Value Reference Range Interpretation Comments TRANSFERRIN (test code = 4936) 269 MG/DL [id number] 00:00:00 Test Item Value Reference Range Interpretation Comments TRANSFERRIN (test code = 4936) 269 MG/DL FOLIC [id number] 00:00:00 Test Item Value Reference Range Interpretation Comments FOLIC ACID (test code = 2695) 5.4 UG/L FOLIC [id number] 00:00:00 Test Item Value Reference Range Interpretation Comments FOLIC ACID (test code = 2695) 5.4 UG/L IRON BINDING CAPACITY AND IRON AND % [id number] 00:00:00 Test Item Value Reference Range Interpretation Comments IRON, SERUM (test code = 2) 42 UG/DL UNSATURATED IBC (test code = 26911) 279 UG/DL CALC TOTAL IBC (test code = 7) 321 UG/DL CALC % IRON SAT (test code = 2078) 13 % IRON BINDING CAPACITY AND IRON AND % [id number] 00:00:00 Test Item Value Reference Range Interpretation Comments IRON, SERUM (test code = 2) 42 UG/DL UNSATURATED IBC (test code = 67900) 279 UG/DL CALC TOTAL IBC (test code = 7) 321 UG/DL CALC % IRON SAT (test code = 2078) 13 % [id number] 00:00:00 Test Item Value Reference Range Interpretation Comments FERRITIN (test code = 2075) 15 NG/ML CULTURE, URINE [ADDED]2018-06-12 00:00:00 Test Item Value Reference Range Interpretation Comments CULTURE, URINE (test SPECIMEN NUMBER: code = 51590) [id number] CULTURE, URINE [ADDED]2018-06-12 00:00:00 Test Item Value Reference Range Interpretation Comments CULTURE, URINE (test SPECIMEN NUMBER: code = 12115) [id number] COMPREHENSIVE METABOLIC [id number] 00:00:00 Test Item Value Reference Range Interpretation Comments GLUCOSE (test code = 2217) 86 MG/DL BUN (test code = 2208) 16 MG/DL CREATININE (test code = 2214) 0.45 MG/DL eGFR AMER. (test code 141 ML/MIN/1.73 = 23309) eGFR NON- AMER. (test 122 ML/MIN/1.73 code = 94515) CALC BUN/CREAT (test code = 36 RATIO [...] code = 2219) 17 U/L COMPREHENSIVE METABOLIC [id number] 00:00:00 Test Item Value Reference Range Interpretation Comments GLUCOSE (test code = 2217) 86 MG/DL BUN (test code = 2208) 16 MG/DL CREATININE (test code = 2214) 0.45 MG/DL eGFR AMER. (test code 141 ML/MIN/1.73 = 76296) eGFR NON- AMER. (test 122 ML/MIN/1.73 code = 75147) CALC BUN/CREAT (test code = 36 RATIO [...] (test code = 2219) 17 U/L VALPROIC [id number] 00:00:00 Test Item Value Reference Range Interpretation Comments VALPROIC ACID (test code = 3025) 100.9 UG/ML VALPROIC [id number] 00:00:00 Test Item Value Reference Range Interpretation Comments VALPROIC ACID (test code = 3025) 100.9 UG/ML CBC W/AUTO [id number] 00:00:00 Test Item Value Reference Range Interpretation [...] code = 1015) 184 K/UL CBC W/AUTO [id number] 00:00:00 Test Item Value Reference Range Interpretation [...] code = 1015) 184 K/UL CBC W/AUTO [id number] 00:00:00 Test Item Value Reference Range Interpretation [...] = 1015) 184 K/UL PAP TEST, THINPREP, [id number] 00:00:00 Test Item Value Reference Range Interpretation Comments SOURCE: (test code = Cervical/Endocervical 8001) SLIDES: (test code = 1 8011) LMP: (test code = 03/2017 8021) SPECIMEN ADEQUACY: (NOTE) (test code = 07568) INTERPRETATION: (test NO EPITHELIAL code = 12209) ABNORMALITY SEE BELOW WIRE MESH FILTER FABRICATOR: Santi Elizondo, (test code = 8101) CT(ASCP)IAC LOCATION: (test code (NOTE) = 83126) CPT: (test code = (NOTE) 8140) PAP TEST, THINPREP, [id number] 00:00:00 Test Item Value Reference Range Interpretation Comments SOURCE: (test code = Cervical/Endocervical 8001) SLIDES: (test code = 1 8011) LMP: (test code = 03/2017 8021) SPECIMEN ADEQUACY: (NOTE) (test code = 37498) INTERPRETATION: (test NO EPITHELIAL code = 79891) ABNORMALITY SEE BELOW WIRE MESH FILTER FABRICATOR: Santi Elizondo, (test code = 8101) CT(ASCP)IAC LOCATION: (test code (NOTE) = 12817) CPT: (test code = (NOTE) 8140) HPV HIGH RISK WITH GENOTYPE, [id number] 00:00:00 Test Item Value Reference Range Interpretation Comments HPV HIGH RISK INTERP (test code = NEGATIVE 97060) HPV 16 (test code = 94204) NEGATIVE HPV 18 (test code = 00391) NEGATIVE HPV, HR, OTHER GENOTYPES (test code NEGATIVE = 83493) HPV HIGH RISK WITH GENOTYPE, [id number] 00:00:00 Test Item Value Reference Range Interpretation Comments HPV HIGH RISK INTERP (test code = NEGATIVE 63095) HPV 16 (test code = 17437) NEGATIVE HPV 18 (test code = 71978) NEGATIVE HPV, HR, OTHER GENOTYPES (test code NEGATIVE = 41051) GC AND CHLAMYDIA AMPLIFIED, [id number] 00:00:00 Test Item Value Reference Range Interpretation Comments GONORRHEA, TMA (test code = 96607) NEGATIVE CHLAMYDIA, TMA (test code = 75683) NEGATIVE HIV AB/AG COMBO RFLX [id number] 00:00:00 Test Item Value Reference Range Interpretation Comments HIV 1/2 4TH GEN, RFLX CONF (test NON-REACTIVE code = 3514) GC AND CHLAMYDIA AMPLIFIED, [id number] 00:00:00 Test Item Value Reference Range Interpretation Comments GONORRHEA, TMA (test code = 49654) NEGATIVE CHLAMYDIA, TMA (test code = 84029) NEGATIVE HIV AB/AG COMBO RFLX [id number] 00:00:00 Test Item Value Reference Range Interpretation Comments HIV 1/2 4TH GEN, RFLX CONF (test NON-REACTIVE code = 3514) CBC W/AUTO [id number] 00:00:00 Test Item Value Reference Range Interpretation [...] (test code = 1015) 152 K/UL HEMOGLOBIN [id number] 00:00:00 Test Item Value Reference Range Interpretation Comments HEMOGLOBIN A1c (test code = 85440) 5.2 % HEMOGLOBIN [id number] 00:00:00 Test Item Value Reference Range Interpretation Comments HEMOGLOBIN A1c (test code = 36899) 5.2 % HEMOGLOBIN [id number] 00:00:00 Test Item Value Reference Range Interpretation Comments HEMOGLOBIN A1c (test code = 98307) 5.2 % [id number] 00:00:00 Test Item Value Reference Range Interpretation Comments TSH (test code = 2821) 2.020 UIU/ML [id number] 00:00:00 Test Item Value Reference Range Interpretation Comments TSH (test code = 2821) 2.020 UIU/ML [id number] 00:00:00 Test Item Value Reference Range Interpretation Comments TSH (test code = 2821) 2.020 UIU/ML COMPREHENSIVE METABOLIC [id number] 00:00:00 Test Item Value Reference Range Interpretation Comments GLUCOSE (test code = 2217) 90 MG/DL BUN (test code = 2208) 21 MG/DL CREATININE (test code = 2214) 0.42 MG/DL eGFR AMER. (test code 145 ML/MIN/1.73 = 80938) eGFR NON- AMER. (test 126 ML/MIN/1.73 code = 60312) CALC BUN/CREAT (test code = 50 RATIO [...] code = 2219) <5 U/L COMPREHENSIVE METABOLIC [id number] 00:00:00 Test Item Value Reference Range Interpretation Comments GLUCOSE (test code = 2217) 90 MG/DL BUN (test code = 2208) 21 MG/DL CREATININE (test code = 2214) 0.42 MG/DL eGFR AMER. (test code 145 ML/MIN/1.73 = 73588) eGFR NON- AMER. (test 126 ML/MIN/1.73 code = 62842) CALC BUN/CREAT (test code = 50 RATIO [...] (test code = 2219) <5 U/L LIPID [id number] 00:00:00 Test Item Value Reference Range Interpretation Comments CHOLESTEROL (test code = 2210) 186 MG/DL TRIGLYCERIDES (test code = 2232) 131 MG/DL HDL CHOLESTEROL (test code = 2220) 67 MG/DL CALC LDL CHOL (test code = 2237) 93 MG/DL RISK RATIO LDL/HDL (test code = 1.39 RATIO 2238) LIPID [id number] 00:00:00 Test Item Value Reference Range Interpretation Comments CHOLESTEROL (test code = 2210) 186 MG/DL TRIGLYCERIDES (test code = 2232) 131 MG/DL HDL CHOLESTEROL (test code = 2220) 67 MG/DL CALC LDL CHOL (test code = 2237) 93 MG/DL RISK RATIO LDL/HDL (test code = 1.39 RATIO 2238) CBC W/AUTO [id number] 00:00:00 Test Item Value Reference Range Interpretation [...] code = 1015) 152 K/UL CBC W/AUTO [id number] 00:00:00 Test Item Value Reference Range Interpretation [...]
--- NOTE | 2022-09-14 17:16 | EDPHYS ---
Physician Documentation [facility] Name: Sidra Hodges Age: 47 yrs Sex: Female : 1975 Arrival Date: 09/03/2022 Time: 23:30 Bed 6 Private MD: ED Physician Sebastian Silva HPI: 09/03 23:40 This 47 yrs old Female presents to ER via EMS with complaints of Argument with cp Sister. 23:40 Patient reports being involved in verbal argument with sister and calling EMS to get cp away from situation. Patient does not express any complaints at this time. Historical: - Allergies: 23:40 CARBAMAZEPINE DERIVATIVES; kl 23:40 Depakote; kl 23:40 Tegretol; kl - PMHx: 23:40 ADD/ADHD; Anxiety; Bipolar disorder; Chronic pain; hemorrhoids; Seizures; kl - PSHx: 23:40 R LEG SX; kl - Immunization history:: Adult Immunizations unknown. - Social history:: Smoking status: Patient denies any tobacco usage or history of. ROS: 23:43 All other systems are negative. cp Exam: 23:43 Head/Face: Normocephalic, atraumatic. cp 23:43 Constitutional: The patient appears in no acute distress, alert, awake, comfortable, non-toxic, well developed, well nourished. 23:43 Eyes: Periorbital structures: appear normal, Pupils: equal, round, and reactive to light and accomodation, Sclera: no appreciated abnormality, Lids and lashes: appear normal, bilaterally. 23:43 ENT: External ear(s): are unremarkable, Nose: is normal, Mouth: is normal, Posterior pharynx: Airway: no evidence of obstruction, patent. 23:43 Chest/axilla: Inspection: normal. 23:43 Respiratory: the patient does not display signs of respiratory distress, Respirations: normal, no use of accessory muscles, no retractions, labored breathing, is not present, Breath sounds: are clear throughout, no decreased breath sounds, no stridor, no wheezing. 23:43 Abdomen/GI: Exam negative for discomfort, distension, guarding, Inspection: abdomen appears normal. 23:43 Neuro: Orientation: no acute changes, Mentation: no acute changes, Motor: moves all fours, strength is normal, Gait: is steady, at a normal pace, without difficulty. MDM: 23:37 Patient medically screened. cp Administered Medications: No medications were administered Disposition: 09/04 07:22 Co-signature as Attending Physician, Sebastian Silva MD I reviewed the patient's care sp4 provided by Advanced Practice Provider \T\ agree w/ the diagnosis \T\ care plan. I personally saw the pt \T\ performed a substantive portion of the visit, incldng all aspects of the (History/Exam/Medical Decision Making). Disposition Summary: 09/03/22 23:46 Discharge Ordered Location: Home cp Problem: new cp Symptoms: have improved cp Condition: Stable cp Diagnosis - Encounter for examination and observation for unspecified reason cp Followup: cp - With: Emergency Department - When: As needed - Reason: Worsening of condition Discharge Instructions: - Discharge Summary Sheet cp - Form - Provisional Diagnosis cp Forms: - Medication Reconciliation Form cp - Thank You Letter cp - Antibiotic Education cp - Prescription Opioid Use cp Signatures: Sandra Bach RN RN Pascual Love PA PA cp Sebastian Silva MD MD sp4
--- NOTE | 2022-09-14 17:16 | ER ---
Nurse's Notes [facility] Name: Sidra Hodges Age: 47 yrs Sex: Female : 1975 Arrival Date: 09/03/2022 Time: 23:30 Bed 6 Private MD: Diagnosis: Encounter for examination and observation for unspecified reason Presentation: 09/03 23:30 Chief complaint: EMS states: PT REFUSING TO STATE WHAT SHE IS BEING TRANSPORTED TO THE [address] PT REFUSES ALL CARE, INCLUDING VITAL SIGNS. PT SHAKES HER HEAD NO WHEN ASKED IF SHE NEEDS ANYTHING. 23:39 Chief complaint: Patient states: fighting with her sister reports does not want to live kl with her sister any more reports she is not comfortable living there refusing vital signs or further assistance. Coronavirus screen: Vaccine status: Patient reports being unvaccinated. Ebola Screen: Patient negative for fever greater than or equal to 101.5 degrees Fahrenheit, and additional compatible Ebola Virus Disease symptoms. Risk Assessment: Do you want to hurt yourself or someone else? Patient reports no desire to harm self or others. 23:39 Method Of Arrival: EMS: [facility] 23:39 Acuity: CARMITA 5 kl 23:50 Initial Sepsis Screen: Does the patient meet any 2 criteria? Does the patient have a suspected source of infection? No. Patient's initial sepsis screen is negative. Triage Assessment: 23:41 General: Appears distressed, well groomed, well developed, Behavior is anxious. Pain: kl Denies pain. Historical: - Allergies: 23:40 CARBAMAZEPINE DERIVATIVES; kl 23:40 Depakote; kl 23:40 Tegretol; kl - PMHx: 23:40 ADD/ADHD; Anxiety; Bipolar disorder; Chronic pain; hemorrhoids; Seizures; kl - PSHx: 23:40 R LEG SX; kl - Immunization history:: Adult Immunizations unknown. - Social history:: Smoking status: Patient denies any tobacco usage or history of. Screenin:49 [facility] ED Fall Risk Assessment (Adult) History of falling in the last 3 months, kl including since admission No falls in past 3 months (0 pts) Confusion or Disorientation No (0 pts) Intoxicated or Sedated No (0 pts) Impaired Gait No (0 pts) Mobility Assist Device Used No (0 pt) Altered Elimination No (0 pt) Score/Fall Risk Level 0 - 2 = Low Risk Oriented to surroundings, Maintained a safe environment. Abuse screen: Denies threats or abuse. Nutritional screening: No deficits noted. Tuberculosis screening: No symptoms or risk factors identified. ED Course: 23:30 Patient arrived in ED. lyn 23:37 Pascual Lopez PA is PHCP. cp 23:37 Sebastian Silva MD is Attending Physician. cp 23:40 Kate Rodrigues, RN is Primary Nurse. kd3 23:40 Triage completed. kl 23:49 Arm band placed on pt refused. kl 23:49 No provider procedures requiring assistance completed. Patient did not have IV access kl during this emergency room visit. Administered Medications: No medications were administered Outcome: 23:46 Discharge ordered by . cp 23:48 Discharged to home ambulatory. kl 23:48 Condition: unchanged 23:48 Discharge instructions given to patient, Instructed on discharge instructions, follow up and referral plans. Demonstrated understanding of pt refusing discharge instructions 23:50 Patient left the ED. kl Signatures: Sandra Bach RN RN Conchita Angel RN RN Pascual Hardwick PA PA cp Doucette, Kyli, RN RN kd3
== END 2022-09-03 23:50 | disposition home or self-care (01) ==
LOC: ER 23:00
DX: Z71.1 Person with feared health complaint in whom no diagnosis is made (principal)
CPT/HCPCS: 99282

== ENCOUNTER 2022-10-22 18:54 | Emergency (ER) | payer SELFPAY ==
--- OUTSIDE RECORDS SUMMARY | 2022-10-22 19:02 | XMS REPORT | Continuity of Care Document ---
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 University of Arterial blood by [facility] Pulse oximetry Branch Systolic blood 2022-09-10 23:55:00 111 mm[Hg] [facility] Diastolic blood 2022-09-10 23:55:00 84 mm[Hg] [facility] Heart rate 2022-09-10 23:55:00 105 /min [facility] [place] [facility] Body temperature 2022-09-10 23:55:00 37.33 Oma [facility] [place] [facility] Respiratory rate 2022-09-10 23:55:00 19 /min [facility] [place] [facility] Systolic blood 2022-09-10 01:44:00 126 mm[Hg] [facility] [place] [facility] Diastolic blood 2022-09-10 01:44:00 81 mm[Hg] [facility] Heart rate 2022-09-10 01:44:00 78 /min [facility] [place] [facility] Body temperature 2022-09-10 01:44:00 36.56 Oma [facility] [place] [facility] Respiratory rate 2022-09-10 01:44:00 16 /min [facility] [place] [facility] Body weight 2022-09-10 01:44:00 79.379 kg [facility] [place] [facility] BMI 2022-09-10 01:44:00 35.35 kg/m2 [facility] [place] [facility] Oxygen saturation in 2022-09-10 01:44:00 100 /min [facility] [place] [facility] Pulse oximetry Branch Systolic blood 2022-09-07 05:37:00 119 mm[Hg] [facility] [place] [facility] Diastolic blood 2022-09-07 05:37:00 67 mm[Hg] [facility] [place] [facility] Heart rate 2022-09-07 05:37:00 79 /min [facility] [place] [facility] Respiratory rate 2022-09-07 05:37:00 16 /min [facility] [place] [facility] Oxygen saturation in 2022-09-07 05:37:00 98 /min [facility] [place] [facility] Pulse oximetry Branch Body temperature 2022-09-06 23:05:00 36.78 Oma [facility] [place] [facility] Body weight 2022-09-06 23:05:00 79.379 kg [facility] [place] [facility] BMI 2022-09-06 23:05:00 35.35 kg/m2 [facility] [place] [facility] Systolic blood 2021-10-02 20:55:00 111 mm[Hg] [facility] [place] [facility] Diastolic blood 2021-10-02 20:55:00 70 mm[Hg] [facility] Heart rate 2021-10-02 20:55:00 79 /min [facility] Body temperature 2021-10-02 20:55:00 36.61 Oma [facility] [place] [facility] Respiratory rate 2021-10-02 20:55:00 18 /min [facility] [place] [facility] Body height 2021-10-02 20:55:00 149.9 cm [facility] [place] [facility] Body weight 2021-10-02 20:55:00 79.379 kg [facility] [place] [facility] BMI 2021-10-02 20:55:00 35.35 kg/m2 [facility] [place] [facility] Oxygen saturation in 2021-10-02 20:55:00 100 /min [facility] [place] [facility] Pulse oximetry Branch Systolic blood 2021-05-05 19:20:00 102 mm[Hg] [facility] [place] [facility] Diastolic blood 2021-05-05 19:20:00 48 mm[Hg] [facility] Heart rate 2021-05-05 19:20:00 68 /min [facility] [place] [facility] Body temperature 2021-05-05 19:20:00 36.94 Oma [facility] [place] [facility] Respiratory rate 2021-05-05 19:20:00 18 /min [facility] [place] [facility] Body weight 2021-05-05 19:20:00 79.379 kg [facility] [place] [facility] BMI 2021-05-05 19:20:00 35.35 kg/m2 [facility] [place] [facility] Oxygen saturation in 2021-05-05 19:20:00 99 /min University of Arterial blood by [facility] gracie Pulse oximetry Branch Systolic blood 2019-12-15 22:12:00 138 mm[Hg] [facility] Diastolic blood 2019-12-15 22:12:00 100 mm[Hg] [facility] Heart rate 2019-12-15 22:12:00 77 /min [facility] [place] [facility] Body temperature 2019-12-15 22:12:00 37.06 Oma [facility] [place] [facility] Respiratory rate 2019-12-15 22:12:00 20 /min [facility] [place] [facility] Body weight 2019-12-15 22:12:00 79.379 kg [facility] [place] [facility] BMI 2019-12-15 22:12:00 35.35 kg/m2 [facility] [place] [facility] Oxygen saturation in 2019-12-15 22:12:00 100 /min [facility] Arterial blood by [facility] gracie Pulse oximetry Branch Systolic blood 2019-12-15 22:12:00 138 mm[Hg] [facility] [place] [facility] Diastolic blood 2019-12-15 22:12:00 100 mm[Hg] [facility] Heart rate 2019-12-15 22:12:00 77 /min [facility] [place] [facility] Body temperature 2019-12-15 22:12:00 37.06 Oma [facility] [place] [facility] Respiratory rate 2019-12-15 22:12:00 20 /min [facility] [place] [facility] Body weight 2019-12-15 22:12:00 79.379 kg [facility] [place] [facility] BMI 2019-12-15 22:12:00 35.35 kg/m2 [facility] [place] [facility] Oxygen saturation in 2019-12-15 22:12:00 100 /min [facility] Arterial blood by [facility] Pulse oximetry Branch Respiratory rate 2019-10-25 23:43:00 18 /min [facility] [place] [facility] Body weight 2019-10-25 23:43:00 83.915 kg [facility] [place] [facility] BMI 2019-10-25 23:43:00 37.37 kg/m2 [facility] [place] [facility] Respiratory rate 2019-10-25 23:43:00 18 /min [facility] [place] [facility] Body weight 2019-10-25 23:43:00 83.915 kg [facility] [place] [facility] BMI 2019-10-25 23:43:00 37.37 kg/m2 [facility] [place] [facility] Systolic blood 2019-08-13 19:25:00 123 mm[Hg] [facility] [place] [facility] Diastolic blood 2019-08-13 19:25:00 88 mm[Hg] [facility] [place] [facility] Heart rate 2019-08-13 19:25:00 78 /min [facility] [place] [facility] Body temperature 2019-08-13 19:25:00 36.56 Oma Univ [facility] Respiratory rate 2019-08-13 19:25:00 18 /min [facility] [place] [facility] [place] Body height 2019-08-13 19:25:00 149.9 cm [facility] [place] [facility] Body weight 2019-08-13 19:25:00 90.719 kg [facility] [place] [facility] BMI 2019-08-13 19:25:00 40.40 kg/m2 [facility] [place] [facility] Oxygen saturation in 2019-08-13 19:25:00 100 /min [facility] Arterial blood by [facility] Pulse oximetry Branch Systolic blood 2019-08-13 19:25:00 123 mm[Hg] [facility] [place] [facility] Diastolic blood 2019-08-13 19:25:00 88 mm[Hg] [facility] [place] [facility] Heart rate 2019-08-13 19:25:00 78 /min [facility] [place] [facility] Body temperature 2019-08-13 19:25:00 36.56 Oma [facility] [place] [facility] Respiratory rate 2019-08-13 19:25:00 18 /min [facility] [place] [facility] Body height 2019-08-13 19:25:00 149.9 cm [facility] [place] [facility] Body weight 2019-08-13 19:25:00 90.719 kg [facility] [place] [facility] BMI 2019-08-13 19:25:00 40.40 kg/m2 [facility] [place] [facility] Oxygen saturation in 2019-08-13 19:25:00 100 /min [facility] Ar[facility] blood by [place] [facility] [employer] gracie Pulse oximetry Branch Systolic blood 2019-07-23 00:20:15 120 mm[Hg] [facility] [place] [facility] Diastolic blood 2019-07-23 00:20:15 74 mm[Hg] [facility] [place] [facility] Heart rate 2019-07-23 00:20:15 82 /min [facility] [place] [facility] Respiratory rate 2019-07-23 00:20:15 19 /min [facility] [place] [facility] Oxygen saturation in 2019-07-23 00:20:15 100 /min [facility] blood by [place] [facility] gracie Pulse oximetry Branch Body temperature 2019-07-22 19:41:00 36.33 Oma [facility] [place] [facility] Body weight 2019-07-22 19:39:00 90.719 kg [facility] [place] [facility] BMI 2019-07-22 19:39:00 39.06 kg/m2 [facility] [place] [facility] Systolic blood 2019-07-23 00:20:15 120 mm[Hg] [facility] [place] [facility] Diastolic blood 2019-07-23 00:20:15 74 mm[Hg] [facility] [place] [facility] Heart rate 2019-07-23 00:20:15 82 /min [facility] [place] [facility] Respiratory rate 2019-07-23 00:20:15 19 /min [facility] [place] [facility] Oxygen saturation in 2019-07-23 00:20:15 100 /min [facility] Arterial blood by [facility] Pulse oximetry Branch Body temperature 2019-07-22 19:41:00 36.33 Oma [facility] [place] [facility] Body weight 2019-07-22 19:39:00 90.719 kg [facility] [place] [facility] BMI 2019-07-22 19:39:00 39.06 kg/m2 [facility] [place] [facility] Systolic blood 2019-07-14 03:33:00 127 mm[Hg] [facility] [place] [facility] Diastolic blood 2019-07-14 03:33:00 88 mm[Hg] [facility] [place] [facility] [place] Heart rate 2019-07-14 03:33:00 79 /min [facility] [place] [facility] Respiratory rate 2019-07-14 03:33:00 16 /min [facility] [place] [facility] Oxygen saturation in 2019-07-14 03:33:00 97 /min [facility] blood by [place] [facility] [facility]ie Pulse oximetry Branch Body weight 2019-07-14 02:16:00 90.719 kg [facility] [place] [facility] BMI 2019-07-14 02:16:00 39.06 kg/m2 [facility] [place] [facility] Body temperature 2019-07-14 02:15:00 36.78 Oma [facility] [place] [facility] Body weight 2019-07-10 20:39:00 90.719 kg [facility] [place] [facility] BMI 2019-07-10 20:39:00 39.06 kg/m2 [facility] [place] [facility] Systolic blood 2019-01-21 23:34:00 133 mm[Hg] [facility] [place] [facility] Diastolic blood 2019-01-21 23:34:00 78 mm[Hg] Unive [facility]ity of [facility] [place] Heart rate 2019-01-21 23:34:00 66 /min [facility] [place] [facility] Body temperature 2019-01-21 23:34:00 36.94 Oma [facility] [place] [facility] Respiratory rate 2019-01-21 23:34:00 18 /min [facility] [place] [facility] Body height 2019-01-21 23:34:00 147.3 cm [facility] [place] [facility] Body weight 2019-01-21 23:34:00 68.04 kg [facility] [place] [facility] BMI 2019-01-21 23:34:00 31.35 kg/m2 [facility] [place] [facility] Oxygen saturation in 2019-01-21 23:34:00 100 /min [facility] [place] [facility] P[facility] oximetry Branch Systolic blood 2019-01-21 23:34:00 133 mm[Hg] Univer sity of pressure [facility] Diastolic blood 2019-01-21 23:34:00 78 mm[Hg] Unive rsity of pressure [facility] Heart rate 2019-01-21 23:34:00 66 /min Universi ty [facility] Body temperature 2019-01-21 23:34:00 36.94 [facility] Respiratory rate 2019-01-21 23:34:00 18 /min [facility] Body height 2019-01-21 23:34:00 147.3 cm [facility] of [facility] Body weight 2019-01-21 23:34:00 68.04 kg Universi ty [facility] BMI 2019-01-21 23:34:00 31.35 kg/m2 Universi [facility] Oxygen saturation in 2019-01-21 23:34:00 100 /min [facility] Arterial blood by [facility] Pulse oximetry Branch BP Systolic 2022-07-17 15:20:00 133 mm[Hg] BP [...] 17.00 /min Procedures Procedure Date / Time Performing Clinician Source Performed COMP. METABOLIC PANEL 2022-09-07 01:38:00 Tayo Boyd [facility] ([id number]) Medical Branch CBC WITH DIFF 2022-09-07 01:38:00 Tayo Boyd [facility] URINALYSIS 2022-09-07 01:38:00 Tayo Boyd [facility] XR ANKLE <3 VW LEFT 2022-09-07 00:56:00 Tayo [facility] XR FOOT <3 VW LEFT 2022-09-07 00:56:00 Tayo Boyd [facility] CONSENT/REFUSAL FOR 2022-09-06 22:08:37 Doctor Unassigned, No Un [facility] DIAGNOSIS AND TREATMENT Name Medical Branch CT CERVICAL SPINE WO 2021-10-02 21:53:00 Javed Frank [facility] CONTRAST [facility] Branch CT LUMBAR SPINE WO 2021-10-02 21:53:00 Javed Frank [facility] CONTRAST [facility] Branch CT THORACIC SPINE WO 2021-10-02 21:53:00 Javed Frank [facility] CONTRAST [facility] XR FOREARM 2 VW RIGHT 2021-05-05 20:03:34 Deon Nunez [facility] XR WRIST 3+ VW RIGHT 2021-05-05 20:03:34 Deon Nunez [facility] NOTICE OF PRIVACY 2021-05-05 19:12:00 Doctor Unassigned, No [facility] [place] [facility] Name [facility] Branch CONSENT/REFUSAL FOR 2021-05-05 19:11:19 Doctor Unassigned, No Un [facility] [place] [facility] Name [facility] CONSENT/REFUSAL FOR 2019-08-13 19:17:22 Doctor Unassigned, No Un [facility] [place] [facility] TREATMENT [facility] CT HEAD WO CONTRAST 2019-07-22 22:24:37 Ofe [facility] XR CERVICAL SPINE 2 VW 2019-07-22 21:59:59 Ofe Samayoa [facility] CBC WITH DIFFERENTIAL 2019-07-22 21:34:00 Ofe Samayoa [facility] XR CERVICAL SPINE 2 VW 2019-07-14 02:43:00 Henry Owen [facility] XR ELBOW <3 VW LEFT 2019-07-14 02:43:00 Henry [facility] XR KNEE <3 VW RIGHT 2019-07-14 02:43:00 Henry [facility] XR SHOULDER <2 VW LEFT 2019-07-14 02:43:00 Henry Owen [facility] [id number] Ecg Routine Ecg 2017-09-24 00:00:00 W/least 12 Lds W/i r Plan of Care Planned Activity Planned Date Details Comments Source Goal Plan of Care Note [code = 76929-4] Goal Plan of Care Note [code = 84456-0] Goal Plan of Care Note [code = 90689-2] Goal Plan of Care Note [code = 08132-3] Goal Plan of Care Note [code = 73294-5] Goal Plan of Care Note [code = 95601-7] Goal Plan of Care Note [code = 41590-9] Goal Plan of Care Note [code = 75355-1] Goal Plan of Care Note [code = 76541-8] Goal Plan of Care Note [code = 58798-7] Goal Plan of Care Note [code = 23549-1] Goal Plan of Care Note [code = 03283-3] Goal Plan of Care Note [code = 72896-4] Goal Plan of Care Note [code = 00856-6] Goal Plan of Care Note [code = 02372-1] Goal Plan of Care Note [code = 34540-5] Goal Plan of Care Note [code = 40998-2] Goal Plan of Care Note [code = 13029-9] Goal Plan of Care Note [code = 07859-8] Goal Plan of Care Note [code = 27143-4] Goal Plan of Care Note [code = 89458-6] Goal Plan of Care Note [code = 09813-8] Goal Plan of Care Note [code = 25827-2] Goal Plan of Care Note [code = 66386-0] Goal Plan of Care Note [code = 66748-9] Goal Plan of Care Note [code = 62306-8] Goal Plan of Care Note [code = 36122-6] Goal Plan of Care Note [code = 47861-5] Goal Plan of Care Note [code = 03998-2] Encounters Start End Encounter Admission Attending Care Care Encounter Source Date/Time Date/Time Type Type Clinicians Facility Department ID 2022-09-24 2022-09-24 [facility] [id number] Univers 12:33:00 12:51:00 Heri PRATHER [id number] [facility] 4.2.7.2.686 [facility] [id number] [facility] 084 Branch 2022-09-22 2022-09-22 Nurse Marisa COX 1.2.840.114 [id number] Univers 00:00:00 00:00:00 Triage dMadhavi [id number] [facility] 4.2.7.2.686 [facility] [id number] [facility] 019 Branch 2022-09-18 2022-09-19 Inpatient EM Marly Mendenhall [facility] OBSE [id number] [facility] 10:09:00 14:28:00 25 [facility] 2022-09-16 2022-09-17 Emergency EM Guero, [facility] FABI [id number] [facility] 22:50:00 01:40:00 Asim 33 [facility] 2022-09-14 2022-09-15 Inpatient EM Andrei, [facility] TELE [id number] [facility] 14:52:00 14:00:00 Gilbert 75 Jodi see [facility] 2022-09-13 2022-09-13 Emergency EM Jose C, [facility] [id number] [facility] 09:34:00 13:00:00 Brad 75 [facility] 2022-09-10 2022-09-11 Emergency EM Donato, [facility] [id number] [facility] 23:39:00 11:28:00 Russel 51 [facility] 2022-09-10 2022-09-10 Emergency Shelbie, Lisa S TRAU[place] 1.2.84 0.114 [id number] Univers 18:57:00 20:20:00 [place] C[place] [id number] [place] [id number] [address] 2022-09-10 2022-09-10 Emergency X [facility] ERT [id number] Univers 18:57:00 20:20:00 SANDRITA ity [facility] 2022-09-09 2022-09-09 Emergency X [facility] ERT [id number] Univers 20:45:00 22:46:00 SANDRITA ity [facility] 2022-09-09 2022-09-09 Emergency Key, TRAUMA [id number] Univers 20:45:00 22:46:00 Sandrita CENTER [id number] [place] [id number] [address] 2022-09-06 2022-09-07 Emergency X DG, [facility] ERT [id number] Univers 18:09:00 00:51:00 TAYO ity [facility] 2022-09-06 2022-09-07 Emergency Vasut, TRAUMA [id number] Univers 18:09:00 00:51:00 Tayo [facility] [id number] [place] [id number] [address] 2022-08-21 2022-08-21 Outpatient SFA SFA [id number] Henry 14:11:33 14:11:33 0228 F [place] 2022-07-17 2022-07-17 Outpatient SFA [facility] [id number] Henry 15:03:48 15:03:48 0124 F [place] 2022-07-17 2022-07-17 Outpatient [id number] 00:00:00 00:00:00 Visit [id number] 2021-10-02 2021-10-02 Emergency X FRANK, [facility] ERT [id number] Univers 15:56:00 19:00:00 JAVED cameroncindy [facility] 2021-10-02 2021-10-02 Emergency [facility] 1.2.840.114 [id number] Univers 15:56:00 19:00:00 Javed PRATHER [id number] i ty of [place] 4.2.7.2.686 [facility] [id number] [address] 2021-05-05 2021-05-05 Emergency X NUNEZ, [facility] ERT [id number] Univers 13:22:00 14:48:00 DEON thacker [facility] 2021-05-05 2021-05-05 Emergency [facility] 1.2.336.704 [id number] Univers 13:22:00 14:48:00 Deon PRATHER [id number] i ty of [place] 4.2.7.2.686 [facility] [id number] [address] 2021-05-05 2021-05-05 Orders Doctor KENNY 1.2.840.114 [id number] Univers 00:00:00 00:00:00 Only Unassigned, ROC[place]O [id number] ity of [facility] 4.2.7.2.686 [facility] [id number] [place] [address] Branch 2019-12-15 2019-12-15 Emergency Kp Gilliland [facility] 1.2.840.114 [id number] 17:11:56 18:04:00 Marissa Prather [id number] [place] 4.2.7.2.686 [place] [id number] [facility] 2019-12-15 2019-12-15 Emergency Kp Gilliland [facility] 1.2.840.114 [id number] Univers 17:11:56 18:04:00 Marissa [place] 350.1.13.10 i ty of [place] 4.2.7.2.686 [facility] [id number] [address] 2019-12-15 2019-12-15 Emergency X Kp GILLILAND [facility] ERT [id number] Univers 17:11:56 17:11:56 ity [facility] 2019-10-25 2019-10-25 Emergency [facility] 1.2.671.162 [id number] 18:31:31 19:21:00 Kylahnithin [place] 350.1.13.10 [place] 4.2.7.2.686 [place] [id number] [facility] 2019-10-25 2019-10-25 Emergency [facility] 1.2.538.195 [id number] Univers 18:31:31 19:21:00 Cynnithin [place] 350.1.13.10 i ty of [place] 4.2.7.2.686 [facility] [id number] [address] 2019-10-25 2019-10-25 Emergency X [facility] ERT [id number] Univers 18:31:31 18:31:31 CYNISE ity [facility] 2019-08-13 2019-08-13 Emergency [facility] 1.2.717.920 [id number] 13:30:00 14:36:00 Floridalma [place] [id number] [place] 4.2.7.2.686 [place] [id number] [facility] 2019-08-13 2019-08-13 Emergency [facility] 1.2.235.505 [id number] Univers 13:30:00 14:36:00 Floridalma Warwick 350.1.13.10 i ty of [place] 4.2.7.2.686 [facility] [id number] [address] 2019-08-13 2019-08-13 Emergency X [facility] ERT [id number] Univers 13:30:00 14:36:[address] of [facility] 2019-07-22 2019-07-22 Emergency Unknown, Attending TRAU[place] 1.2.8 40.114 [id number] 13:42:11 19:02:00 Lisa Morfin S CENTER 350.1.13.10 4.2.7.2.686 [id number] 2019-07-22 2019-07-22 Emergency X [facility] ERT [id number] Univers 13:42:11 19:02:00 LISA ity [facility] 2019-07-22 2019-07-22 Emergency Unknown, Attending TRAUMA 1.2.8 40.114 [id number] Univers 13:42:11 19:02:00 Lisa Morfin S CENTER 350.1.13.10 [place] [id number] [address] 2019-07-13 2019-07-13 Emergency X [facility] ERT [id number] Univers 20:17:19 21:48:00 HENRY ity [facility] 2019-07-13 2019-07-13 Emergency Lexie, TRAU[place] [id number] Univers 20:17:19 21:48:00 Helen [facility] 350.1.13.10 [place] [id number] [address] 2019-07-10 2019-07-10 Emergency X [facility] ERT [id number] Univers 14:26:03 16:33:00 DEBBIE ity [facility] 2019-07-10 2019-07-10 Emergency [facility] 1.2.840.114 [id number] Univers 14:26:03 16:33:00 Debbie Prather 350.1.13.10 ity [place] [id number] [address] 2019-07-04 2019-07-04 Emergency X [facility] ERT [id number] Univers 19:09:02 22:51:00 LISA ity [facility] 2019-06-30 2019-06-30 Emergency X [facility] ERT [id number] Univers 10:33:08 13:10:00 DEON thacker [facility] 2019-05-25 2019-05-25 Emergency X SINGER [facility] ERT [id number] Univers 11:58:19 15:37:00 DEON thacker [facility] 2019-04-09 2019-04-09 Emergency Arron EVANS [facility] ERT [id number] Univers 22:29:37 23:28:00 FLORIDALMA thacker [facility] 2019-01-21 2019-01-21 Emergency [facility] 1.2.022.243 [id number] 18:38:01 19:59:00 Le Prather 350.1.13.10 [place] 4.2.7.2.686 [place] [id number] [facility] 2019-01-21 2019-01-21 [facility] 1.2.663.880 [id number] [facility] 18:38:01 19:59:00 Le [facility]ather [facility].10 [facility] 4.2.7.2.686 [facility] [id number] [address] Results Test Description Test Time Test Comments Results Result Comments Source GLUCOSE BEDSIDE TESTING 2022-09-19 11:51:00 Test Item Value Reference Range Interpretation Comme nts GLUCOSE BEDSIDE TESTING (test code = GLUBED) 79 MG/DL 70-119 N GLUCOSE BEDSIDE [id number] 06:23:00 Test Item Value Reference Range Interpretation Comments GLUCOSE BEDSIDE TESTING (test code = 80 MG/DL 70-119 N GLUBED) BASIC METABOLIC [id number] 05:12:00 Test Item Value Reference Range Interpretation Comments SODIUM (test code 127.0 mmol/L 133-144 L = NA) POTASSIUM (test 4.0 mmol/L 3.5-5.1 N code = K) CHLORIDE (test 95 mmol/L 95-105 N code = CL) CARBON DIOXIDE 27 mmol/L 21-32 (test code = CO2) ANION GAP (test 5.0 GAP calc 4.0-15.0 N code = GAP) GLUCOSE (test code 98 MG/DL 70-110 N = GLU) BLOOD UREA 9 MG/DL 7-18 N NITROGEN (test code = BUN) GLOMERULAR 115 estGFR >60 The Glomerular FILTRATION RATE Filtration R ate is a (test code = GFR) calculated parameterbased on serum Creatinin e, patient age and sex. GFR valuesless than 60 mL/min/1.73 squ are meters are jony cative ofChronic Kidne y Disease. Values less than 15 mL/min/1.73squa re meters indicate Kidney failure. The calculation for GFR is based on the CK D-EPI (2020) calculat ion. This formulais race indifferent and is the recommended for randall for GFRby the N [facility] on for Adults.The GFR will not calculate i f the sex is unknown or if thepatient's ag e is <18 years. CREATININE (test 0.52 MG/DL 0.55-1.30 L Results may be code = CREAT) depressed if p atient is takingN-Acetylc ysteine (NAC) and Metam izole (Dipyrone). CALCIUM (test code 9.4 MG/DL 8.5-10.1 N = CA) INDEX HEMOLYSIS 1 NORMAL <10 See_Comment [Automated message] (test code = MG Index/DL The system [employer] HEMINDPivot3) generated this result transmitted ref erence range: 1 NORMAL . The reference range was not used to int erpret this result as normal/abnormal . INDEX ICTERIC 1 NORMAL <2 MG See_Comment [Automated message] (test code = Index/DL The system [employer] ICTTapFunder) generated this result transmitted ref erence range: 1 NORMAL . The reference range was not used to int erpret this result as normal/abnormal . INDEX LIPEMIA 1 NORMAL <50 See_Comment [Automated me ssage] (test code = MG Index/DL The system [employer] LIPTapFunder) generated this result transmitted ref erence range: 1 NORMAL . The reference range was not used to int erpret this result as normal/abnormal . CARBAMAZEPINE (TEGRETOL)2022-09-19 05:12:00 Test Item Value Reference Range Interpretation Comments CARBAMAZEPINE 4.6 ug/mL 4.0-12.0 In conjunctio n with (TEGRETOL) (test other antie pileptic code = CARB) drugs Therapeu tic 4.0 - 8.0 Toxicity 9. 0 - 12.0 Carbamazepine a lone Therapeutic 8.0 - 12.0 Detection Limit = 2.0 <2.0 indicates None DetectedPerform ed At: [facility] [place] [address] [place], [place] [id number] keven Reeves MD Ph:[phone] GLUCOSE BEDSIDE [id number] 19:51:00 Test Item Value Reference Range Interpretation Comments GLUCOSE BEDSIDE TESTING (test code 129 MG/DL 70-119 H = GLUBED) OSMOLALITY [id number] 17:56:00 Test Item Value Reference Range Interpretation Comments OSMOLALITY SERUM (test code = 269 mOsm/kg 275-300 L OSMO) THYROID STIMULATING [id number] 17:56:00 Test Item Value Reference Range Interpretation Comments THYROID STIMULATING HORMONE 4.190 mc IU/ML 0.340-4.820 N (test code = TSH) GLUCOSE BEDSIDE [id number] 15:49:00 Test Item Value Reference Range Interpretation Comments GLUCOSE BEDSIDE TESTING (test code = 86 MG/DL 70-119 N GLUBED) CREATINE KINASE (CK)2022-09-18 14:33:00 Test Item Value Reference Range Interpretation Comments CREATINE KINASE (CK) (test code = 145 Unit/L 26-192 N CK) VALPROIC ACID (DEPAKENE)2022-09-18 14:26:00 Test Item Value Reference Range Interpretation Comments VALPROIC ACID (DEPAKENE) (test 37.5 mcG/ML 50.0-100.0 L code = VALP) [id number] 14:26:00 Test Item Value Reference Range Interpretation Comments AMMONIA (test code = AMM) 29.0 mcMOL/L 11.0-32.0 N GLUCOSE BEDSIDE [id number] 11:51:00 Test Item Value Reference Range Interpretation Comments GLUCOSE BEDSIDE TESTING (test code = 88 MG/DL 70-119 N GLUBED) GLYCOSYLATED HEMOGLOBIN (HA1C)2022-09-18 06:53:00 Test Item Value Reference Range Interpretation Comments GLYCOSYLATED HEMOGLOBIN (HA1C) 5.2 % IS-A1C 4.5-5.6 N (test code = GLYHGB) ESTIMATED AVERAGE [id number] 06:53:00 Test Item Value Reference Range Interpretation Comments ESTIMATED AVERAGE GLUCOSE (test 103 MG/DLest code = EAG) LIPID PROFILE (CORONARY RISK)2022-09-18 06:53:00 Test Item Value Reference Range Interpretation Comments TRIGLYCERIDES (test 83 MG/DL 0-150 N Results may be code = TRIG) depressed if patient is takingN-Acetylc yste ine (NAC) and Metamizole (Dipyrone). CHOLESTEROL (test 163 MG/DL 133-200 N code = CHOL) CHOLESTEROL/HDL RATIO 2.17 RATIO See_Comment REFER ENCE RANGE: (test code = CHOLHDL) MALE F EMALE 1/2 AVG RISK 3.43 3.27 AVG RISK 4.97 4.44 2X AVG RISK 9.55 7 .05 3X AVG RISK 23. 39 11.04 [Automate d message] The sy stem which generated this result transmitted reference range : 0-. The referen ce range was not u sed to interpret th is result as normal/abnormal . HDL CHOLESTEROL (test 75 MG/DL 40-59 H Result s maybe code = HDL) depressed if patient is taki ng Metamizole(Dipy pawan ). NON-HDL CHOLESTEROL 88 mg/dL <130 Patients with CHD (test code = NHDL) or CHD ri sk LDL: <70 mg/dL nonHD L: <100 mg/dLPatie nts with 2+ risk factors LDL: <1 30 mg/dL nonHDL: < 160 mg/dLPatients w ith 0-1 risk factor s LDL: <160 mg/dL nonHDL: <190 mg /dL LIPOPROTEIN LDL (test 71 MG/DL 0-129 N code = LDL) LDL/HDL (test code = 0.94 Ratio See_Comment L LDL/HDL RISK LDL/HDL) ASSESSMENT1.47 One-half average3.22 Average5.03 Two times average6. 14 [address] times [address] rage [Automated mess age] The system [employer] generated this result transmit isabel reference range : 1.48-3.22 Avg. The reference range was not used to interpret this result as normal/abnormal . INDEX HEMOLYSIS (test 1 NORMAL <10 See_Comment [Auto mated code = HEMINDEX) MG Index/DL message] e system which generated this result transmitted reference range : 1 NORMAL. The reference range was not used to interpret this result as normal/abnormal . INDEX ICTERIC (test 1 NORMAL <2 MG See_Comment [Auto mated code = ICTINDEX) Index/DL message] e system which generated this result transmitted reference range : 1 NORMAL. The reference range was not used to interpret this result as normal/abnormal . INDEX LIPEMIA (test 1 NORMAL <50 See_Comment [[employer] isabel code = LIPINDEX) MG Index/DL message] e system which generated this result transmitted reference range : 1 NORMAL. The reference range was not used to interpret this result as normal/abnormal . UR [id number] 21:28:00 Test Item Value Reference Range Interpretation Comments UR SODIUM RANDOM 93 mmol/L 40-200 N (test code = JESUSITA) UR POTASSIUM RANDOM 54.8 mmol/L 25-125 N NO ESTAB LISHED NORMAL (test code = KU) RANGES FOR RANDOM SPECIMENS. UR CHLORIDE RANDOM 164 mmol/L 110-150 H (test code = CLU) UR OSMOLALITY [id number] 21:28:00 Test Item Value Reference Range Interpretation Comments UR OSMOLALITY RANDOM (test code = 475 mOsm/kg 100-1400 N OSMOU) CBC W/O [id number] 20:05:00 Test Item Value Reference Range Interpretation Comments WHITE BLOOD CELL (test code = WBC) 4.5 K/mm3 4.1-12.1 N RED BLOOD CELL (test code = RBC) 3.84 M/mm3 3.8-5.5 N HEMOGLOBIN (test code = HGB) 11.3 G/DL 10.6-15.8 N HEMATOCRIT (test code = HCT) 33.6 % 31.8-47.4 N MEAN CELL VOLUME (test code = MCV) 87.5 fL 80.1-101.1 N MEAN CELL HGB (test code = MCH) 29.4 pg 25.3-35.3 N MEAN CELL HGB CONCETRATION (test 33.6 G/DL 32.7-35.1 N code = MCHC) RED CELL DISTRIBUTION WIDTH (test 14.2 % 12.2-16.4 N code = RDW) PLATELET COUNT (test code = PLT) 177 K/mm3 155-337 N MEAN PLATELET VOLUME (test code = 9.5 fL 6.8-11.2 N MPV) LACTIC [id number] 19:35:00 Test Item Value Reference Range Interpretation Comments LACTIC ACID (test code = LACT) 1.0 mmol/L 0.4-2.0 N HCG SERUM [id number] 19:31:00 Test Item Value Reference Range Interpretation Comments HCG SERUM QUAL (test code = Negative SCREEN NEG HCGQL) - CT HEAD/BRAIN W/O [id number] 18:59:00 [facility] : 1975 Sex: F Patient Name: BHUMIKA JONES Unit No: [id number] EXAMS: CPT CODE: [id number] CT HEAD/BRAIN W/O CONT [id number] Location: CT head, conducted on 09/17/22 at 1837 hours COMPARISON EXAMS:Head CT exam of 09/17/22 at 00:06 hours TECHNIQUE: CT examination of the brain was performed without contrast on a helical scanner. Scanning conducted from skull base to vertex in the axial plane acquiring contiguous 5mmslice thickness . The examination was performed on a updated helical CT scanner utilizing low-dose radiation technique. Automatic exposure control timing was utilized to minimize radiation dose. The DLP is 730.91 mGy- cm CLINICAL HISTORY: Seizure activity FINDINGS: There is no evolving process identified or cerebral edema when compared to the prior study. Midline structures appear fairly unremarkable. No focal area of encephalomalacia. No positive mass-effect, midline shift, extra-axial fluid collections or intracranial hemorrhages seen. In particular, no subarachnoid hemorrhage is identified. No intra or extra-axial masses. Bone windows unremarkable. No significant sinus disease is noted. No acute territorial infarction is seen. IMPRESSION: Unremarkable CT examination of the brain without contrast. No significant change from the exam acquired earlier today. at 5949 Reported and signed by: Nati Hunt M.D. CC: Valentina Samayoa MD Dictated Date/Time: 09/17/2022 (1858) Technologist: VREO Marie(R)(CT) CTDI: DLP: Trnscrpt: 09/17/2022 (1858) Pa6 DENIZ Lugo NAME: [address] PHYS: Valentina [place] [address] : 1975 AGE: 47 SEX: F LOC: JOSHUA 20 PHONE #: [phone] EXAM DATE: 09/17/2022 STATUS: ADM IN FAX #: [phone] RAD #: D/C DT PAGE 1 Signed Report Patient Name: KRUNAL JONESPCION Unit No: [id number] EXAMS: CPT CODE: [id number] CT HEAD/BRAIN W/O CONT 83967 (Continued) Orig Print D/T: S: 09/17/2022 (190) DENIZ Lugo NAME: [address] PHYS: Valentina [place] [address] : 1975 AGE: 47 SEX: F LOC: JOSHUA 20PHONE #: [phone] EXAM DATE: 09/17/2022 STATUS: ADM IN FAX #: [phone] RAD #: D/C DT PAGE 2 Signed ReportURINALYSIS COMPLETE 2022-09-17 16:28:00 Test Item Value Reference Range Interpretation Comments UA COLOR (test code = LIGHT-YELLOW YELLOW COLU) DESCRIPT UA APPEARANCE (test CLEAR DESCRIPT CLEAR code = APPU) UA GLUCOSE DIPSTICK NORMAL (0) See_Comment [[employer] isabel (test code = DGLUU) mg/dL message] The system which generated this result transmit isabel reference range : 0 (NORMAL). The reference range was not used to interpret this result as normal/abnormal . UA BILIRUBIN DIPSTICK NEGATIVE (0.0) See_Comment [Au tomated (test code = BILU) mg/dL message] The system which generated this result transmit isabel reference range : (NEG) 0. The reference range was not used to interpret this result as normal/abnormal . UA KETONE DIPSTICK TRACE mg/dL See_Comment [Automat ed (test code = KETU) message] The system which generated this result transmit isabel reference range : (NEG) 0. The reference range was not used to interpret this result as normal/abnormal . UA SPECIFIC GRAVITY 1.013 SG 1.001-1.035 (test code = SGU) UA BLOOD DIPSTICK NEGATIVE (0.00) See_Comment [Autom ated (test code = LUZ) mg/dL message] T he system which generated this result transmit isabel reference range : 0 (NEG). The reference range was not used to interpret this result as normal/abnormal . UA PH DIPSTICK (test 6.5 pH UNITS 4.6-8.0 code = SAHRON) UA PROTEIN DIPSTICK NEGATIVE (0) See_Comment [[employer] isabel (test code = PROU) mg/dL message] The system which generated this result transmit isabel reference range : <30 (1+). The reference range was not used to interpret this result as normal/abnormal . UA UROBILINIOGEN NORMAL (0) See_Comment [Automated DIPSTICK (test code = mg/Dl messag e] The URO) system which generated this result transmit isabel reference range : <2.0 (1+). The reference range was not used to interpret this result as normal/abnormal . UA NITRITE DIPSTICK NEGATIVE (0) NEG (test code = CHARLI) SCREEN UA LEUKOCYTE ESTERASE NEGATIVE (0) See_Comment [Auto mated DIPSTICK (test code = Leuk/mcL messag e] The LEUU) system which generated this result transmit isabel reference range : (NEG) 0. The reference range was not used to interpret this result as normal/abnormal . UA WBC (test code = 0-3 #WBC/HPF 0-3 WBCU) UA RBC (test code = 0-3 #RBC/HPF 0-3 RBCU) UA SQUAMOUS CELLS RARE >0 /UL NONE-SQepi (test code = SQU) DRUGS OF ABUSE SCREEN [id number] 16:28:00 Test Item Value Reference Interpretation Comments Range URN COCAINE (test NONE DETECTED See_Comment [Automat ed message] The code = COCAURN) (NEG) system which generated SCcutoff this result tra nsmitted reference range : <300 NG/ML. The refe rence range was not u sed to interpret this result as normal/abnormal . URN CANNABINOIDS NONE DETECTED See_Comment [Automate d message] The (test code = (NEG) system which ge nerated CANNABURN) SCcutoff this result tra nsmitted reference range : <50 NG/ML. The refe rence range was not u sed to interpret this result as normal/abnormal . URN AMPHETAMINE NONE DETECTED See_Comment [Automated message] The (test code = (NEG) system which ge nerated AMPHETURN) SCcutoff this result tra nsmitted reference range : <1000 NG/ML. The refe rence range was not u sed to interpret this result as normal/abnormal . URN BARBITURATE NONE DETECTED See_Comment [Automated message] The (test code = (NEG) system which ge nerated BARBITURN) SCcutoff this result tra nsmitted reference range : <200 NG/ML. The refe rence range was not u sed to interpret this result as normal/abnormal . URN BENZODIAZEPINE POSITIVE See_Comment A [Automat ed message] The (test code = SCcutoff system which ge nerated BENZOURN) this result tra nsmitted reference range : <200 NG/ML. The refe rence range was not u sed to interpret this result as normal/abnormal . URN OPIATES (test NONE DETECTED See_Comment [Automat ed message] The code = OPIATURN) (NEG) system whic h generated SCcutoff this result tra nsmitted reference range : <300 NG/ML. The refe rence range was not u sed to interpret this result as normal/abnormal . URN PHENCYCLIDINE NONE DETECTED See_Comment ------ Fo r all drug (PCP) (test code = (NEG) screen an alytes PHENCURN) SCcutoff ------The scree n method provides only a preliminary analyticaltest result. A more specific a lternate chemical method mustbe used in order t o obtain a confirmed selma lytical result.Gas chromatography/ mass spectrometry (G C/MS) is thepreferred confirmatory me thod. Other chemical confirmationmet hods are available. Clin ical consideration andprofessional judgement shoul d be applied to any drug ofabuse test re sult, particularly wh en preliminary positiveresults are used. [Automate d message] The sy stem which generated this result transmit isabel reference range : <25 NG/ML. The refe rence range was not u sed to interpret this result as normal/abnormal . TROP-I HIGH [id number] 16:26:00 Test Item Value Reference Range Interpretation Comments TROP-I HIGH 8 ng/L 0-45 N SENSITIVITY (test code = TROPIHS) CAUTIO N: Units of the current test me thodology (ng/L) differfr om the prior test methodolog y (ng/mL) by a factor of 1000. 99th Percentile Upper Reference Limit (URL): Females: 54 ng/LMales: 78 n g/L In order to distinguish acute elevations of h igh sensitivitytrop onin from other clinical conditions, the FourthUnive rsal Definition of M yocardial Infarction stre ssesclinical assessment and the demonstration o f a rise and/orfall in s erial troponin result s above the URL. Results fr om different methodologies s hould not be comparedto one another as quantitative re sults and URLs may vary b ymethod. BASIC METABOLIC [id number] 16:25:00 Test Item Value Reference Range Interpretation Comments SODIUM (test code 125.0 mmol/L 133-144 L = NA) POTASSIUM (test 4.7 mmol/L 3.5-5.1 N code = K) CHLORIDE (test 98 mmol/L 95-105 N code = CL) CARBON DIOXIDE 22 mmol/L 21-32 N (test code = CO2) ANION GAP (test 5.0 GAP calc 4.0-15.0 N code = GAP) GLUCOSE (test code 96 MG/DL 70-110 N = GLU) BLOOD UREA 8 MG/DL 7-18 N NITROGEN (test code = BUN) GLOMERULAR 115 estGFR >60 The Glomerular FILTRATION RATE Filtration R ate is a (test code = GFR) calculated parameterbased on serum Creatinin e, patient age and sex. GFR valuesless than 60 mL/min/1.73 squ are meters are jony cative ofChronic Kidne y Disease. Values less than 15 mL/min/1.73squa re meters indicate Kidney failure. The calculation for GFR is based on the CK D-EPI (2020) calculat ion. This formulais race indifferent and is the recommended for randall for GFRby the N ational Kidney Foundati on for Adults.The GFR will not calculate i f the sex is unknown or if thepatient's ag e is <18 years. CREATININE (test 0.51 MG/DL 0.55-1.30 L Results may be code = CREAT) depressed if p atient is takingN-Acetylc ysteine (NAC) and Metam izole (Dipyrone). CALCIUM (test code 9.7 MG/DL 8.5-10.1 N = CA) INDEX HEMOLYSIS 4 SMALL 50-200 See_Comment A [Automate d message] (test code = MG Index/DL The system [employer] HEMINDPivot3) generated this result transmitted ref erence range: 1 NORMAL . The reference range was not used to int erpret this result as normal/abnormal . INDEX ICTERIC 1 NORMAL <2 MG See_Comment [Automated message] (test code = Index/DL The system [employer] ICTINDEX) generated this result transmitted ref erence range: 1 NORMAL . The reference range was not used to int erpret this result as normal/abnormal . INDEX LIPEMIA 1 NORMAL <50 See_Comment [Automated me ssage] (test code = MG Index/DL The system [employer] LIPINDPivot3) generated this result transmitted ref erence range: 1 NORMAL . The reference range was not used to int erpret this result as normal/abnormal . HEPATIC FUNCTION [id number] 16:25:00 Test Item Value Reference Range Interpretation Comments TOTAL PROTEIN (test code = 7.6 G/DL 6.4-8.2 N PROT) ALBUMIN (test code = ALB) 3.0 G/DL 3.4-5.0 L BILIRUBIN TOTAL (test code = 0.29 MG/DL 0.00-1.00 N BILT) BILIRUBIN DIRECT (test code = < 0.10 MG/DL 0.00-0.30 N BILD) BILIRUBIN INDIRECT (test code CALC JAZMÍN MG/DL 0.2-1.3 L = BILIND) SGOT/AST (test code = AST) 22 Unit/L 15-37 N SGPT/ALT (test code = ALT) 14 Unit/L 12-78 N ALKALINE PHOSPHATASE TOTAL 67 Unit/L 45-117 N (test code = ALKP) CREATINE KINASE (CK)2022-09-17 16:25:00 Test Item Value Reference Range Interpretation Comments CREATINE KINASE (CK) (test code = 92 Unit/L 26-192 N CK) [id number] 16:25:00 Test Item Value Reference Range Interpretation Comments LIPASE (test code = LIP) 57 Unit/L 114-286 L - CT HEAD/BRAIN W/O [id number] 00:32:00 [facility] : 1975 Sex: F Patient Name: BHUMIKA JONES Unit No: [id number] EXAMS: CPT CODE: [id number] CT HEAD/BRAIN W/O [id number] EXAM: - CT HEAD/BRAIN W/O CONT LOCATION: H57 HISTORY: 47 years- year old Female with sz TECHNIQUE: Computerized tomography images from the skull base to the vertex were obtained. Coronal and sagittal reformatted images are provided. This exam was performed according to our departmental dose-optimi zation program, which includes automated exposure control, adjustment of the mA and/or kV according to patient size and/or use of iterative reconstruction technique COMPARISON: 09/14/2022 FINDINGS: Brain: The brain parenchyma is unremarkable. There is no evidence of an acute territorial infarct. There is no mass effect, midline shift, or parenchymal edema. Ventricles/Extra-axial spaces: There is no acute intracranial hemorrhage or extra-axial fluid collection. The ventricles are unremarkable. No basal cistern effacement. Bones: There is no evidence of acute displaced calvarial fracture. Sinuses: The visualized paranasal sinuses and mastoid air cells are clear. Soft Tissues: Unremarkable. Other: None. IMPRESSION: 1. No CT evidence of acute intracranial abnormality. at 0032 Reported and signed by: Pancho Iglesias MD CC: Dictated Date/Time: 09/17/2022 (31) Technologist: Teryr August CTDI: DLP: Trnscrpt: 09/17/2022 (31) [email or web address] DENIZ Lugo NAME: [address] PHYS: PATCA.02 - Asim Jack MD [place] [address] : 1975 AGE: 47 SEX: F LOC: B.ERS PHONE #: [phone] EXAM DATE: 09/16/2022 STATUS: REG ER FAX #: [phone] RAD #: D/C DT PAGE 1 Signed Report Patient Name: ROBERTORMA Unit No: [id number] EXAMS: CPT CODE: [id number] CT HEAD/BRAIN W/O CONT [id number] (Continued) Orig Print D/T: S: 09/17/2022 (34) DENIZ Zapatae NAME: [address] PHYS: PATCA.02 - Asim [place] [address] : 1975 AGE: 47 SEX:F LOC: B.ERS PHONE #: [phone] EXAM DATE: 09/16/2022 STATUS: REG ER FAX #:[phone] RAD #: D/C DT PAGE 2 Signed ReportTROP-I HIGH SENSITIVITY 2022-09-17 00:13:00 Test Item Value Reference Range Interpretation Comments TROP-I HIGH 7 ng/L 0-45 N SENSITIVITY (test code = TROPIHS) CAUTIO N: Units of the current test me thodology (ng/L) differfr om the prior test methodolog y (ng/mL) by a factor of 1000. 99th Percentile Upper Reference Limit (URL): Females: 54 ng/LMales: 78 n g/L In order to distinguish acute elevations of h igh sensitivitytrop onin from other clinical conditions, the FourthUnive rsal Definition of M yocardial Infarction stre ssesclinical assessment and the demonstration o f a rise and/orfall in s erial troponin result s above the URL. Results fr om different methodologies s hould not be comparedto one another as quantitative re sults and URLs may vary b ymethod. COMPREHENSIVE METABOLIC [id number] 00:11:00 Test Item Value Reference Range Interpretation Comments SODIUM (test code = 128.0 mmol/L 133-144 L NA) POTASSIUM (test 4.4 mmol/L 3.5-5.1 N code = K) CHLORIDE (test code 98 mmol/L 95-105 N = CL) CARBON DIOXIDE 23 mmol/L 21-32 N (test code = CO2) ANION GAP (test 7.0 GAP calc 4.0-15.0 N code = GAP) GLUCOSE (test code 101 MG/DL 70-110 N = GLU) BLOOD UREA NITROGEN 9 MG/DL 7-18 N (test code = BUN) GLOMERULAR 115 estGFR >60 The Glomerular FILTRATION RATE Filtration R ate is a (test code = GFR) calculated parameterbased on serum Creatinin e, patient age and sex. GFR valuesless than 60 mL/min/1.73 square meters are jony cative ofChronic Kidne y Disease. Values less than 15 mL/min/1.73squa re meters indicate Kidney failure. The calculation for GFR is based on the CK D-EPI (2020) calculat ion. This formulais race indifferent and is the recommended formula for GFR by the National Kid[employer] for Adults.The GFR will not calculate i f the sex is unknown or if thepatient's ag e is <18 years. CREATININE (test 0.52 MG/DL 0.55-1.30 L Results may be code = CREAT) depressed if p atient is takingN-Acetylc ystein e (NAC) and Metamizole (Dipyrone). TOTAL PROTEIN (test 7.7 G/DL 6.4-8.2 N code = PROT) ALBUMIN (test code 3.2 G/DL 3.4-5.0 L = ALB) ALBUMIN/GLOBULIN 0.7 RATIO 1.2-2.2 L RATIO (test code = A/G) CALCIUM (test code 9.7 MG/DL 8.5-10.1 N = CA) BILIRUBIN TOTAL 0.22 MG/DL 0.00-1.00 N (test code = BILT) BILIRUBIN DIRECT < 0.10 MG/DL 0.00-0.30 N (test code = BILD) BILIRUBIN INDIRECT 0.22 MG/DL 0.2-1.3 N (test code = BILIND) SGOT/AST (test code 22 Unit/L 15-37 N = AST) SGPT/ALT (test code 15 Unit/L 12-78 N = ALT) ALKALINE 66 Unit/L 45-117 N PHOSPHATASE TOTAL (test code = ALKP) INDEX HEMOLYSIS 3 SMALL 25-50 See_Comment [Automated message] (test code = MG Index/DL The system [employer] HEMINDEX) generated this result transmitted ref erence range: 1 NORMAL . The reference range was not used to int erpret this result as normal/abnormal . INDEX ICTERIC (test 1 NORMAL <2 MG See_Comment [Auto mated message] code = ICTINDEX) Index/DL The system which generated this result transmitted ref erence range: 1 NORMAL . The reference range was not used to int erpret this result as normal/abnormal . INDEX LIPEMIA (test 1 NORMAL <50 See_Comment [Automa isabel message] code = LIPINDEX) MG Index/DL The system which generated this result transmitted ref erence range: 1 NORMAL . The reference range was not used to int erpret this result as normal/abnormal . CBC W/AUTO [id number] 23:59:00 Test Item Value Reference Range Interpretation Comments WHITE BLOOD CELL (test code = 5.6 K/mm3 4.1-12.1 N WBC) RED BLOOD CELL (test code = RBC) 3.70 M/mm3 3.8-5.5 L HEMOGLOBIN (test code = HGB) 10.8 G/DL 10.6-15.8 N HEMATOCRIT (test code = HCT) 32.0 % 31.8-47.4 N MEAN CELL VOLUME (test code = 86.5 fL 80.1-101.1 N MCV) MEAN CELL HGB (test code = MCH) 29.2 pg 25.3-35.3 N MEAN CELL HGB CONCETRATION (test 33.8 G/DL 32.7-35.1 N code = MCHC) RED CELL DISTRIBUTION WIDTH 14.3 % 12.2-16.4 N (test code = RDW) RED CELL DISTRIBUTION WIDTH 45.8 fL 36.4-46.3 N (test code = RDW-SD) PLATELET COUNT (test code = PLT) 146 K/mm3 155-337 L MEAN PLATELET VOLUME (test code 11.4 fL 6.8-11.2 H = MPV) GRANULOCYTE % (test code = GR%) 55.8 % 37.8-82.6 N IMMATURE GRANULOCYTE % (test 0.2 % 0.0-2.0 N code = IG%) LYMPHOCYTE % (test code = LY%) 29.6 % 14.1-45.4 N MONOCYTE % (test code = MO%) 10.8 % 2.5-11.7 N EOSINOPHIL % (test code = EO%) 2.9 % 0.0-6.2 N BASOPHIL % (test code = BA%) 0.7 % 0.0-2.1 N NUCLEATED RBC % (test code = 0.0 /100WBC% 0.0-1.0 N NRBC%) GRANULOCYTE # (test code = GR#) 3.12 k/mm3 2.0-13.7 N IMMATURE GRANULOCYTE # (test 0.01 K/mm3 0.00-0.03 N code = IG#) LYMPHOCYTE # (test code = LY#) 1.65 K/mm3 0.6-3.8 N MONOCYTE # (test code = MO#) 0.60 K/mm3 0.11-0.59 H EOSINOPHIL # (test code = EO#) 0.16 K/mm3 0.0-0.4 N BASOPHIL # (test code = BA#) 0.04 K/mm3 0.0-0.1 N NUCLEATED RBC # (test code = 0.00 K/mm3 0.0-0.05 N NRBC#) - XR CHEST 1 [id number] 23:34:00 [facility] : 1975 Sex: F [place]: E St: PRE -- Patient Name: BHUMIKA JONES Unit No: [id number] EXAMS: CPT CODE: [id number] XR CHEST 1 V 66213 EXAMINATION: - XR CHEST 1 V CLINICAL INDICATION: Female, 47 years year old with cough COMPARISON: Chest September 14, 2022 FINDINGS: Single view(s) of the chest submitted. Support Devices: None. Heart: Cardiac si lhouette is normal in size. Mediastinum: Mediastinal contours are normal. Lungs: Pulmonary vessels are normal in size. Lungs are well aerated and clear. Pleura: No pleural effusion is identified. No pneumothorax is present. Bones: Visualized skeleton is normal. IMPRESSION: No acute cardiopulmonary disease. at 2334 Reported and signed by: Flo Jansen MD CC: Dictated Date/Time: 09/16/2022 (2333)Technologist: Muna Monet Transcribed Date/Time: 09/16/2022 (2333) By: [email or web address] Orig Print D/T: S: 09/16/2022 (2336) DENIZ Lugo NAME: RADU [address] PHYS: [email or web address] - Asim Jack MD, [place] [address] : 1975 AGE: 47 SEX: F LOC: GregorioERS PHONE #: [phone] EXAM DATE: 09/16/2022 STATUS: PRE ER FAX #: [phone] RAD NO: DC Dt: PAGE 1 Signed ReportCARBAMAZEPINE (TEGRETOL) 2022-09-15 06:12:00 Test Item Value Reference Range Interpretation Comments CARBAMAZEPINE 1.5 ug/mL 4.0-12.0 L In conjunctio n with (TEGRETOL) (test other antie pileptic code = CARB) drugs Therapeut ic 4.0 - 8.0 Toxicity 9. 0 - 12.0 Carbamazepine a lone Therapeutic 8.0 - 12.0 Detection Limit = 2.0 <2.0 indicates None DetectedPerform ed At: [facility] [address] [id number] keven Reeves MD Ph:[phone] VALPROIC ACID (DEPAKENE)2022-09-15 06:12:00 Test Item Value Reference Range Interpretation Comments VALPROIC ACID (DEPAKENE) (test 80.6 mcG/ML 50.0-100.0 N code = VALP) COMPREHENSIVE METABOLIC [id number] 06:00:00 Test Item Value Reference Range Interpretation Comments SODIUM (test code = 133.0 mmol/L 133-144 N NA) POTASSIUM (test 4.0 mmol/L 3.5-5.1 N code = K) CHLORIDE (test code 104 mmol/L 95-105 N = CL) CARBON DIOXIDE 26 mmol/L 21-32 N (test code = CO2) ANION GAP (test 3.0 GAP calc 4.0-15.0 L code = GAP) GLUCOSE (test code 91 MG/DL 70-110 N = GLU) BLOOD UREA NITROGEN 10 MG/DL 7-18 N (test code = BUN) GLOMERULAR 119 estGFR >60 The Glomerular FILTRATION RATE Filtration R ate is a (test code = GFR) calculated parameterbased on serum Creatinin e, patient age and sex. GFR valuesless than 60 mL/min/1.73 square meters are jony cative ofChronic Kidne y Disease. Values less than 15 mL/min/1.73squa re meters indicate Kidney failure. The calculation for GFR is based on the CK D-EPI (2020) calculat ion. This formulais race indifferent and is the recommended formula for GFR by the National Kidney Foundation for Adults.The GFR will not calculate i f the sex is unknown or if thepatient's ag e is <18 years. CREATININE (test 0.44 MG/DL 0.55-1.30 L Results may be code = CREAT) depressed if p atient is takingN-Acetylc ystein e (NAC) and Metamizole (Dipyrone). TOTAL PROTEIN (test 6.5 G/DL 6.4-8.2 N code = PROT) ALBUMIN (test code 2.6 G/DL 3.4-5.0 L = ALB) ALBUMIN/GLOBULIN 0.7 RATIO 1.2-2.2 L RATIO (test code = A/G) CALCIUM (test code 8.9 MG/DL 8.5-10.1 N = CA) BILIRUBIN TOTAL 0.22 MG/DL 0.00-1.00 N (test code = BILT) BILIRUBIN DIRECT < 0.10 MG/DL 0.00-0.30 N (test code = BILD) BILIRUBIN INDIRECT CALC JAZMÍN MG/DL 0.2-1.3 L (test code = BILIND) SGOT/AST (test code 13 Unit/L 15-37 L = AST) SGPT/ALT (test code 13 Unit/L 12-78 N = ALT) ALKALINE 55 Unit/L 45-117 N PHOSPHATASE TOTAL (test code = ALKP) INDEX HEMOLYSIS 1 NORMAL <10 See_Comment [Automated message] (test code = MG Index/DL The system [employer] HEMINDEX) generated this result transmitted ref erence range: 1 NORMAL . The reference range was not used to int erpret this result as normal/abnormal . INDEX ICTERIC (test 1 NORMAL <2 MG See_Comment [Auto mated message] code = ICTINDEX) Index/DL The system which generated this result transmitted ref erence range: 1 NORMAL . The reference range was not used to int erpret this result as normal/abnormal . INDEX LIPEMIA (test 1 NORMAL <50 See_Comment [Automa isabel message] code = LIPINDEX) MG Index/DL The system which generated this result transmitted ref erence range: 1 NORMAL . The reference range was not used to int erpret this result as normal/abnormal . CBC W/AUTO [id number] 05:37:00 Test Item Value Reference Range Interpretation Comments WHITE BLOOD CELL (test code = 4.4 K/mm3 4.1-12.1 N WBC) RED BLOOD CELL (test code = RBC) 3.73 M/mm3 3.8-5.5 L HEMOGLOBIN (test code = HGB) 11.0 G/DL 10.6-15.8 N HEMATOCRIT (test code = HCT) 32.9 % 31.8-47.4 N MEAN CELL VOLUME (test code = 88.2 fL 80.1-101.1 N MCV) MEAN CELL HGB (test code = MCH) 29.5 pg 25.3-35.3 N MEAN CELL HGB CONCETRATION (test 33.4 G/DL 32.7-35.1 N code = MCHC) RED CELL DISTRIBUTION WIDTH 14.6 % 12.2-16.4 N (test code = RDW) RED CELL DISTRIBUTION WIDTH 47.1 fL 36.4-46.3 H (test code = RDW-SD) PLATELET COUNT (test code = PLT) 209 K/mm3 155-337 N MEAN PLATELET VOLUME (test code 9.0 fL 6.8-11.2 N = MPV) GRANULOCYTE % (test code = GR%) 46.9 % 37.8-82.6 N IMMATURE GRANULOCYTE % (test 0.0 % 0.0-2.0 N code = IG%) LYMPHOCYTE % (test code = LY%) 37.4 % 14.1-45.4 N MONOCYTE % (test code = MO%) 10.2 % 2.5-11.7 N EOSINOPHIL % (test code = EO%) 4.8 % 0.0-6.2 N BASOPHIL % (test code = BA%) 0.7 % 0.0-2.1 N NUCLEATED RBC % (test code = 0.0 /100WBC% 0.0-1.0 N NRBC%) GRANULOCYTE # (test code = GR#) 2.07 k/mm3 2.0-13.7 N IMMATURE GRANULOCYTE # (test 0.00 K/mm3 0.00-0.03 N code = IG#) LYMPHOCYTE # (test code = LY#) 1.65 K/mm3 0.6-3.8 N MONOCYTE # (test code = MO#) 0.45 K/mm3 0.11-0.59 N EOSINOPHIL # (test code = EO#) 0.21 K/mm3 0.0-0.4 N BASOPHIL # (test code = BA#) 0.03 K/mm3 0.0-0.1 N NUCLEATED RBC # (test code = 0.00 K/mm3 0.0-0.05 N NRBC#) GLUCOSE BEDSIDE [id number] 20:03:00 Test Item Value Reference Range Interpretation Comments GLUCOSE BEDSIDE TESTING (test code 117 MG/DL 70-119 N = GLUBED) DRUGS OF ABUSE SCREEN [id number] 11:42:00 Test Item Value Reference Interpretation Comments Range URN COCAINE (test NONE DETECTED See_Comment [Automat ed message] The code = COCAURN) (NEG) system which generated SCcutoff this result tra nsmitted reference range : <300 NG/ML. The refe rence range was not u sed to interpret this result as normal/abnormal . URN CANNABINOIDS NONE DETECTED See_Comment [Automate d message] The (test code = (NEG) system which ge nerated CANNABURN) SCcutoff this result tra nsmitted reference range : <50 NG/ML. The refe rence range was not u sed to interpret this result as normal/abnormal . URN AMPHETAMINE NONE DETECTED See_Comment [Automated message] The (test code = (NEG) system which ge nerated AMPHETURN) SCcutoff this result tra nsmitted reference range : <1000 NG/ML. The refe rence range was not u sed to interpret this result as normal/abnormal . URN BARBITURATE NONE DETECTED See_Comment [Automated message] The (test code = (NEG) system which ge nerated BARBITURN) SCcutoff this result tra nsmitted reference range : <200 NG/ML. The refe rence range was not u sed to interpret this result as normal/abnormal . URN BENZODIAZEPINE NONE DETECTED See_Comment [Automa isabel message] The (test code = (NEG) system which ge nerated BENZOURN) SCcutoff this result tra nsmitted reference range : <200 NG/ML. The refe rence range was not u sed to interpret this result as normal/abnormal . URN OPIATES (test NONE DETECTED See_Comment [Automat ed message] The code = OPIATURN) (NEG) system whic h generated SCcutoff this result tra nsmitted reference range : <300 NG/ML. The refe rence range was not u sed to interpret this result as normal/abnormal . URN PHENCYCLIDINE NONE DETECTED See_Comment ------ Fo r all drug (PCP) (test code = (NEG) screen an alytes PHENCURN) SCcutoff ------The scree n method provides only a preliminary analyticaltest result. A more specific a lternate chemical method mustbe used in order t o obtain a confirmed selma lytical result.Gas chromatography/ mass spectrometry (G C/MS) is thepreferred confirmatory me thod. Other chemical confirmationmet hods are available. Clin ical consideration andprofessional judgement shoul d be applied to any drug ofabuse test re sult, particularly wh en preliminary positiveresults are used. [Automate d message] The sy stem which generated this result transmit isabel reference range : <25 NG/ML. The refe rence range was not u sed to interpret this result as normal/abnormal . - CT HEAD/BRAIN W/O [id number] 11:37:00 [facility] : 1975 Sex: F Patient Name: BHUMIKA JONES Unit No: [id number] EXAMS: CPT CODE: [id number] CT HEAD/BRAIN W/O CONT [id number] EXAMINATION: - CT HEAD/BRAIN W/O CONT COMPARISON: None HISTORY: Seizure LOCATION CODE: C3 TECHNIQUE: CT of the Brain without contrast. Axial non contrast images of the brain were obtained from the skull base to the vertex which were reviewed in bone and soft tissue algorithms. Coronal and sagittal reformatted images were also submitted for review All CT scans are performed using dose optimization techniques as appropriate to a performed exam including one or more of the following: ?Automatedexposure control ?Adjustment of the mA and/or kV according to patient size ?Use of iterative reconstruction technique FINDINGS: There are no acute intracranial abnormalities. Specifically, there is no evidence of hemorrhage, hydrocephalus, midline shift, extra-axial collection or space-occupying lesion. The ventricles and sulci are appropriate in size and configuration for the age of the patient. Theposterior fossa structures are normal in appearance. The bony calvarium is intact. Orbits and globesare unremarkable. No significant paranasal sinus mucosal disease is identified. Vascular structures are grossly normal IMPRESSION: No acute intracranial abnormality at 1137 Reported and signed by: Gladis Andrew MD CC: Vladimir Frobes MD; Jim Jaimes MD Dictated Date/Time: 09/14/2022 (1137) Technologist: ASUNCION CASTELLANO CTDI: DLP: Trnscrpt: 09/14/2022 (1137) [email or web address] [facility] [place] NAME: BHUMIKA JONES [facility] PHYS: Vladimir Vazquez MD [address] [place], [place] [address] : 1975 AGE: 47 SEX: F [place] [id number] LOC: GregorioCASIMIRO Saida PHONE #: [phone] EXAM DATE: 09/14/2022 STATUS: ADM IN FAX #: [phone] RAD #: D/C DT PAGE 1 Signed Report Patient Name: BHUMIKA JONES Unit No: [id number] EXAMS: CPT CODE: [id number] CT HEAD/BRAIN W/O CONT [id number] (Continued) Orig Print D/T: S: 09/14/2022 (1140) [facility] [place] NAME: BHUMIKA JONES [facility] PHYS: Vladimir Menchaca MD [address] : 1975 AGE: 47 SEX: F [place], [place] [address] LOC: NEHA 10PHONE #: [phone] EXAM DATE: 09/14/2022 STATUS: ADM IN FAX #: [phone] RAD #: D/C DT PAGE 2 Signed ReportPT AND [id number] 06:51:00 Test Item Value Reference Interpretation Comments Range PT PATIENT (test 10.7 SECONDS 9.4-12.5 N code = PTP) INTERNATIONAL 0.95 INR 0.88-1.13 N NORMAL RATIO (test Unit --------- code = INR) ---------Therap eutic range for INR i s dependent upon the situation.2.0-3 .0 Prophylaxis / v enous thromboembolism , Treatment of DV T, Acute myocardial infa rction stroke preventi on, Systemic emboli sm prevention in fibrillation3.0 -4.5 AMI recurrence prev ention, Systemic emboli sm prevention in p rosthetic heart 3.0-5.4 A [place] mortality reduc tion THROMBOPLASTIN TIME 34.6 SECONDS 24-37.7 N THERAPEU TIC RANGE FOR PARTIAL (test code UNFRACTIO NATED HEPARIN = = PTT) 50.5-83.6 SEC T his test is not recommen ded to monitor low molecularweight heparin or danaparoid. Order LMWH test COLLECTION THROUGH LINES THAT HAVE BEEN PREVIOUSLY FLUS HEDWITH HEPARIN SHOULD BE AVOIDED DUE TO POSSIBLE HEPARINCONTAMIN ATION HCG SERUM [id number] 06:51:00 Test Item Value Reference Range Interpretation Comments HCG SERUM QUAL (test code = Negative SCREEN NEG HCGQL) Specimen comments: pls use blood in the labCOMPREHENSIVE METABOLIC PANEL 2022-09-14 03:58:00 Test Item Value Reference Range Interpretation Comments SODIUM (test code = 130.0 mmol/L 133-144 L NA) POTASSIUM (test 4.0 mmol/L 3.5-5.1 N code = K) CHLORIDE (test code 101 mmol/L 95-105 N = CL) CARBON DIOXIDE 24 mmol/L 21-32 N (test code = CO2) ANION GAP (test 5.0 GAP calc 4.0-15.0 N code = GAP) GLUCOSE (test code 106 MG/DL 70-110 N = GLU) BLOOD UREA NITROGEN 21 MG/DL 7-18 H (test code = BUN) GLOMERULAR 110 estGFR >60 The Glomerular FILTRATION RATE Filtration R ate is a (test code = GFR) calculated parameterbased on serum Creatinin e, patient age and sex. GFR valuesless than 60 mL/min/1.73 square meters are jony cative ofChronic Kidne y Disease. Values less than 15 mL/min/1.73squa re meters indicate Kidney failure. The calculation for GFR is based on the CK D-EPI (2020) calculat ion. This formulais race indifferent and is the recommended formula for GFR by the National Kidney Foundation for Adults.The GFR will not calculate i f the sex is unknown or if thepatient's ag e is <18 years. CREATININE (test 0.61 MG/DL 0.55-1.30 N Results may be code = CREAT) depressed if p atient is takingN-Acetylc ystein e (NAC) and Metamizole (Dipyrone). TOTAL PROTEIN (test 8.1 G/DL 6.4-8.2 N code = PROT) ALBUMIN (test code 3.3 G/DL 3.4-5.0 L = ALB) ALBUMIN/GLOBULIN 0.7 RATIO 1.2-2.2 L RATIO (test code = A/G) CALCIUM (test code 9.1 MG/DL 8.5-10.1 N = CA) BILIRUBIN TOTAL 0.24 MG/DL 0.00-1.00 N (test code = BILT) BILIRUBIN DIRECT < 0.10 MG/DL 0.00-0.30 N (test code = BILD) BILIRUBIN INDIRECT 0.24 MG/DL 0.2-1.3 N (test code = BILIND) SGOT/AST (test code 24 Unit/L 15-37 N = AST) SGPT/ALT (test code 19 Unit/L 12-78 N = ALT) ALKALINE 81 Unit/L 45-117 N PHOSPHATASE TOTAL (test code = ALKP) INDEX HEMOLYSIS 1 NORMAL <10 See_Comment [Automated message] (test code = MG Index/DL The system [employer] [email or web address]) generated this result transmitted ref erence range: 1 NORMAL . The reference range was not used to int erpret this result as normal/abnormal . INDEX ICTERIC (test 1 NORMAL <2 MG See_Comment [Auto mated message] code = ICTINDEX) Index/DL The system which generated this result transmitted ref erence range: 1 NORMAL . The reference range was not used to int erpret this result as normal/abnormal . INDEX LIPEMIA (test 1 NORMAL <50 See_Comment [Automa isabel message] code = LIPINDEX) MG Index/DL The system which generated this result transmitted ref erence range: 1 NORMAL . The reference range was not used to int erpret this result as normal/abnormal . CREATINE KINASE (CK)2022-09-14 03:58:00 Test Item Value Reference Range Interpretation Comments CREATINE KINASE (CK) (test code = 268 Unit/L 26-192 H CK) CBC W/AUTO [id number] 03:43:00 Test Item Value Reference Range Interpretation Comments WHITE BLOOD CELL (test code = 5.8 K/mm3 4.1-12.1 N WBC) RED BLOOD CELL (test code = RBC) 3.89 M/mm3 3.8-5.5 N HEMOGLOBIN (test code = HGB) 11.4 G/DL 10.6-15.8 N HEMATOCRIT (test code = HCT) 34.6 % 31.8-47.4 N MEAN CELL VOLUME (test code = 88.9 fL 80.1-101.1 N MCV) MEAN CELL HGB (test code = MCH) 29.3 pg 25.3-35.3 N MEAN CELL HGB CONCETRATION (test 32.9 G/DL 32.7-35.1 N code = MCHC) RED CELL DISTRIBUTION WIDTH 14.3 % 12.2-16.4 N (test code = RDW) RED CELL DISTRIBUTION WIDTH 46.4 fL 36.4-46.3 H (test code = RDW-SD) PLATELET COUNT (test code = PLT) 230 K/mm3 155-337 N MEAN PLATELET VOLUME (test code 8.7 fL 6.8-11.2 N = MPV) GRANULOCYTE % (test code = GR%) 44.5 % 37.8-82.6 N IMMATURE GRANULOCYTE % (test 0.2 % 0.0-2.0 N code = IG%) LYMPHOCYTE % (test code = LY%) 33.6 % 14.1-45.4 N MONOCYTE % (test code = MO%) 13.4 % 2.5-11.7 H EOSINOPHIL % (test code = EO%) 7.4 % 0.0-6.2 H BASOPHIL % (test code = BA%) 0.9 % 0.0-2.1 N NUCLEATED RBC % (test code = 0.0 /100WBC% 0.0-1.0 N NRBC%) GRANULOCYTE # (test code = GR#) 2.61 k/mm3 2.0-13.7 N IMMATURE GRANULOCYTE # (test 0.01 K/mm3 0.00-0.03 N code = IG#) LYMPHOCYTE # (test code = LY#) 1.96 K/mm3 0.6-3.8 N MONOCYTE # (test code = MO#) 0.78 K/mm3 0.11-0.59 H EOSINOPHIL # (test code = EO#) 0.43 K/mm3 0.0-0.4 H BASOPHIL # (test code = BA#) 0.05 K/mm3 0.0-0.1 N NUCLEATED RBC # (test code = 0.00 K/mm3 0.0-0.05 N NRBC#) URINALYSIS [id number] 03:41:00 Test Item Value Reference Range Interpretation Comments UA COLOR (test code = YELLOW DESCRIPT YELLOW COLU) UA APPEARANCE (test CLEAR DESCRIPT CLEAR code = APPU) UA GLUCOSE DIPSTICK NORMAL (0) See_Comment [Automa isabel (test code = DGLUU) mg/dL message] The system which generated this result transmit isabel reference range : 0 (NORMAL). The reference range was not used to interpret this result as normal/abnormal . UA BILIRUBIN DIPSTICK NEGATIVE (0.0) See_Comment [Au tomated (test code = BILU) mg/dL message] The system which generated this result transmit isabel reference range : (NEG) 0. The reference range was not used to interpret this result as normal/abnormal . UA KETONE DIPSTICK 10 (1+) mg/dL See_Comment A [Automa isabel (test code = KETU) message] The system which generated this result transmit isabel reference range : (NEG) 0. The reference range was not used to interpret this result as normal/abnormal . UA SPECIFIC GRAVITY 1.032 SG 1.001-1.035 (test code = SGU) UA BLOOD DIPSTICK NEGATIVE (0.00) See_Comment [Autom ated (test code = LUZ) mg/dL message] T he system which generated this result transmit isabel reference range : 0 (NEG). The reference range was not used to interpret this result as normal/abnormal . UA PH DIPSTICK (test 6.0 pH UNITS 4.6-8.0 code = SHARON) UA PROTEIN DIPSTICK 30 (1+) mg/dL See_Comment A [Autom ated (test code = PROU) message] The system which generated this result transmit isabel reference range : <30 (1+). The reference range was not used to interpret this result as normal/abnormal . UA UROBILINIOGEN 4 (2+) mg/Dl See_Comment A [Automated DIPSTICK (test code = messag e] The URO) system which generated this result transmit isabel reference range : <2.0 (1+). The reference range was not used to interpret this result as normal/abnormal . UA NITRITE DIPSTICK NEGATIVE (0) NEG (test code = CHARLI) SCREEN UA LEUKOCYTE ESTERASE 500 Leuk/mcL See_Comment A [Auto mated DIPSTICK (test code = messag e] The LEUU) system which generated this result transmit isabel reference range : (NEG) 0. The reference range was not used to interpret this result as normal/abnormal . UA WBC (test code = 30-40 #WBC/HPF 0-3 A WBCU) UA RBC (test code = 0-3 #RBC/HPF 0-3 RBCU) UA WBC CLUMPS (test RARE >0 /HPF NONE code = WBCUCL) UA BACTERIA (test FEW >1 /HPF NONE-FEW code = BACU) UA SQUAMOUS CELLS FEW >2 /UL NONE-SQepi (test code = SQU) UA TRANSITIONAL CELLS RARE >0 #/HPF NONE (test code = TRANU) UA MUCUS (test code = RARE /LPF NONE MUCU) - XR CHEST 2 [id number] 02:06:00 [facility] : 1975 Sex: F FAX: Suleman Carvalho [facility] [phone] [place]: E St: REG Patient Name: BHUMIKA JONES Unit No: [id number] EXAMS: CPT CODE:[id number] XR CHEST 2 V [id number] EXAM: - XR CHEST 2 V HISTORY: Chest pain. COMPARISON: None available time of interpretation. FINDINGS: PA and lateral view of the chest is provided. Heart size and vascular ity are within normal limits. There is no evidence of a focal consolidation. There is no pleural effusion or pneumothorax. There is no definite acute osseous abnormality. IMPRESSION: No radiographic evidence of acute cardiopulmonary process. at 0206 Reported and signed by: Igor Almonte MD CC: Suleman Carvalho Dictated Date/Time: 09/14/2022 (020)Technologist: SULEMAN JACQUES (R) Transcribed Date/Time: 09/14/2022 (205)By: [email or web address] Orig Print D/T: S: 09/14/2022 (208) DENIZ Lugo NAME: ROB[address] PHYS: GISEL - [place],Suleman Lugo, [place] [address] : 1975 AGE: 47 SEX: F LOC: B.ERS PHONE #: [phone] EXAM DATE: 09/14/2022 STATUS: REG ER FAX #: [phone] RAD NO: DC Dt: PAGE 1 Signed Report COMPREHENSIVE METABOLIC [id number] 12:49:00 Test Item Value Reference Range Interpretation Comments SODIUM (test code = 129.0 mmol/L 133-144 L NA) POTASSIUM (test 3.8 mmol/L 3.5-5.1 N code = K) CHLORIDE (test code 96 mmol/L 95-105 N = CL) CARBON DIOXIDE 27 mmol/L 21-32 N (test code = CO2) ANION GAP (test 6.0 GAP calc 4.0-15.0 N code = GAP) GLUCOSE (test code 100 MG/DL 70-110 N = GLU) BLOOD UREA NITROGEN 14 MG/DL 7-18 N (test code = BUN) GLOMERULAR 114 estGFR >60 The Glomerular FILTRATION RATE Filtration R ate is a (test code = GFR) calculated parameterbased on serum Creatinin e, patient age and sex. GFR valuesless than 60 mL/min/1.73 square meters are jony cative ofChronic Kidne y Disease. Values less than 15 mL/min/1.73squa re meters indicate Kidney failure. The calculation for GFR is based on the CK D-EPI (2020) calculat ion. This formulais race indifferent and is the recommended formula for GFR by the National Kidney Foundation for Adults.The GFR will not calculate i f the sex is unknown or if thepatient's ag e is <18 years. CREATININE (test 0.54 MG/DL 0.55-1.30 L Results may be code = CREAT) depressed if p atient is takingN-Acetylc ystein e (NAC) and Metamizole (Dipyrone). TOTAL PROTEIN (test 8.2 G/DL 6.4-8.2 N code = PROT) ALBUMIN (test code 3.3 G/DL 3.4-5.0 L = ALB) ALBUMIN/GLOBULIN 0.7 RATIO 1.2-2.2 L RATIO (test code = A/G) CALCIUM (test code 9.2 MG/DL 8.5-10.1 N = CA) BILIRUBIN TOTAL 0.23 MG/DL 0.00-1.00 N (test code = BILT) BILIRUBIN DIRECT 0.12 MG/DL 0.00-0.30 N (test code = BILD) BILIRUBIN INDIRECT 0.11 MG/DL 0.2-1.3 L (test code = BILIND) SGOT/AST (test code 25 Unit/L 15-37 N = AST) SGPT/ALT (test code 18 Unit/L 12-78 N = ALT) ALKALINE 68 Unit/L 45-117 N PHOSPHATASE TOTAL (test code = ALKP) INDEX HEMOLYSIS 1 NORMAL <10 See_Comment [Automated message] (test code = MG Index/DL The system [employer] [email or web address]) generated this result transmitted ref erence range: 1 NORMAL . The reference range was not used to int erpret this result as normal/abnormal . INDEX ICTERIC (test 1 NORMAL <2 MG See_Comment [Auto mated message] code = ICTINDEX) Index/DL The system which generated this result transmitted ref erence range: 1 NORMAL . The reference range was not used to int erpret this result as normal/abnormal . INDEX LIPEMIA (test 1 NORMAL <50 See_Comment [Automa isabel message] code = LIPINDEX) MG Index/DL The system which generated this result transmitted ref erence range: 1 NORMAL . The reference range was not used to int erpret this result as normal/abnormal . [id number] 12:49:00 Test Item Value Reference Range Interpretation Comments MAGNESIUM (test code = MAG) 1.7 MG/DL 1.6-2.6 N CBC W/AUTO [id number] 12:36:00 Test Item Value Reference Range Interpretation Comments WHITE BLOOD CELL (test code = 5.8 K/mm3 4.1-12.1 N WBC) RED BLOOD CELL (test code = RBC) 3.82 M/mm3 3.8-5.5 N HEMOGLOBIN (test code = HGB) 11.2 G/DL 10.6-15.8 N HEMATOCRIT (test code = HCT) 34.0 % 31.8-47.4 N MEAN CELL VOLUME (test code = 89.0 fL 80.1-101.1 N MCV) MEAN CELL HGB (test code = MCH) 29.3 pg 25.3-35.3 N MEAN CELL HGB CONCETRATION (test 32.9 G/DL 32.7-35.1 N code = MCHC) RED CELL DISTRIBUTION WIDTH 14.5 % 12.2-16.4 N (test code = RDW) RED CELL DISTRIBUTION WIDTH 47.0 fL 36.4-46.3 H (test code = RDW-SD) PLATELET COUNT (test code = PLT) 214 K/mm3 155-337 N MEAN PLATELET VOLUME (test code 8.7 fL 6.8-11.2 N = MPV) GRANULOCYTE % (test code = GR%) 52.2 % 37.8-82.6 N IMMATURE GRANULOCYTE % (test 0.3 % 0.0-2.0 N code = IG%) LYMPHOCYTE % (test code = LY%) 34.0 % 14.1-45.4 N MONOCYTE % (test code = MO%) 10.1 % 2.5-11.7 N EOSINOPHIL % (test code = EO%) 2.7 % 0.0-6.2 N BASOPHIL % (test code = BA%) 0.7 % 0.0-2.1 N NUCLEATED RBC % (test code = 0.0 /100WBC% 0.0-1.0 N NRBC%) GRANULOCYTE # (test code = GR#) 3.04 k/mm3 2.0-13.7 N IMMATURE GRANULOCYTE # (test 0.02 K/mm3 0.00-0.03 N code = IG#) LYMPHOCYTE # (test code = LY#) 1.98 K/mm3 0.6-3.8 N MONOCYTE # (test code = MO#) 0.59 K/mm3 0.11-0.59 N EOSINOPHIL # (test code = EO#) 0.16 K/mm3 0.0-0.4 N BASOPHIL # (test code = BA#) 0.04 K/mm3 0.0-0.1 N NUCLEATED RBC # (test code = 0.00 K/mm3 0.0-0.05 N NRBC#) PENDING RECEIPT OF SPECIMEN PER B.LAB.KTP AT 09/13/22 1143URINALYSIS COMPLETE 2022-09-13 12:22:00 Test Item Value Reference Range Interpretation Comments UA COLOR (test code = LIGHT-YELLOW YELLOW COLU) DESCRIPT UA APPEARANCE (test TURBID CLEAR A code = APPU) (1+)HAZY-CLDY DESCRIPT UA GLUCOSE DIPSTICK NORMAL (0) See_Comment [Automa isabel (test code = DGLUU) mg/dL message] The system which generated this result transmit isabel reference range : 0 (NORMAL). The reference range was not used to interpret this result as normal/abnormal . UA BILIRUBIN DIPSTICK NEGATIVE (0.0) See_Comment [Au tomated (test code = BILU) mg/dL message] The system which generated this result transmit isabel reference range : (NEG) 0. The reference range was not used to interpret this result as normal/abnormal . UA KETONE DIPSTICK NEGATIVE (0) See_Comment [Automat ed (test code = KETU) mg/dL message] The system which generated this result transmit isabel reference range : (NEG) 0. The reference range was not used to interpret this result as normal/abnormal . UA SPECIFIC GRAVITY 1.024 SG 1.001-1.035 (test code = SGU) UA BLOOD DIPSTICK NEGATIVE (0.00) See_Comment [Autom ated (test code = LUZ) mg/dL message] T he system which generated this result transmit isabel reference range : 0 (NEG). The reference range was not used to interpret this result as normal/abnormal . UA PH DIPSTICK (test 6.0 pH UNITS 4.6-8.0 code = SHARON) UA PROTEIN DIPSTICK NEGATIVE (0) See_Comment [Automa isabel (test code = PROU) mg/dL message] The system which generated this result transmit isabel reference range : <30 (1+). The reference range was not used to interpret this result as normal/abnormal . UA UROBILINIOGEN NORMAL (0) See_Comment [Automated DIPSTICK (test code = mg/Dl messag e] The URO) system which generated this result transmit isabel reference range : <2.0 (1+). The reference range was not used to interpret this result as normal/abnormal . UA NITRITE DIPSTICK NEGATIVE (0) NEG (test code = CHARLI) SCREEN UA LEUKOCYTE ESTERASE NEGATIVE (0) See_Comment [Auto mated DIPSTICK (test code = Leuk/mcL messag e] The LEUU) system which generated this result transmit isabel reference range : (NEG) 0. The reference range was not used to interpret this result as normal/abnormal . UA WBC (test code = 0-3 #WBC/HPF 0-3 WBCU) UA RBC (test code = 0-3 #RBC/HPF 0-3 RBCU) UA BACTERIA (test TRACE >0 /HPF NONE-FEW code = BACU) UA SQUAMOUS CELLS RARE >0 /UL NONE-SQepi (test code = SQU) UA MUCUS (test code = RARE /LPF NONE MUCU) DRUGS OF ABUSE SCREEN [id number] 00:33:00 Test Item Value Reference Range Interpretation Comments URN COCAINE (test code NEGATIVE NEGATIVE Cocai ne cut-off = COCAURN) concentration: 300 ng/mL URN CANNABINOIDS (test NEGATIVE NEGATIVE Canna binoids cut-off code = CANNABURN) concentrat ion: 50 ng/mL URN AMPHETAMINE (test NEGATIVE NEGATIVE Amphet amine cut-off code = AMPHETURN) concentrat ion: 1000 ng/mL URN BARBITURATE (test NEGATIVE NEGATIVE Barbit urate cut-off code = BARBITURN) concentrat ion: 200 ng/mL URN BENZODIAZEPINE NEGATIVE NEGATIVE Benzodiaz epine cut-off (test code = BENZOURN) krunal ntration: 200 ng/mL URN OPIATES (test code NEGATIVE NEGATIVE Opiat es cut-off = OPIATURN) concentration: 2000 ng/mL URN PHENCYCLIDINE (PCP) NEGATIVE NEGATIVE Phen cyclidine(PCP) (test code = PHENCURN) cut-o ff concentration: 25 ng/ml URN METHADONE (test NEGATIVE NEGATIVE Methadon e cut-off code = METHAURN) concentrati on: 300 ng/mL UA RFLX MICR CULT IF [id number] 00:30:00 Test Item Value Reference Range Interpretation Comments UA COLOR (test code = COLU) YELLOW UA APPEARANCE (test code = CLEAR APPU) UA GLUCOSE DIPSTICK (test NORMAL mg/dl NORMAL code = DGLUU) UA BILIRUBIN DIPSTICK (test NEGATIVE mg/dL NEGATIVE code = BILU) UA KETONE DIPSTICK (test 5 mg/dl mg/dl NEGATIVE A code = KETU) UA SPECIFIC GRAVITY (test 1.015 1.000-1.030 code = SGU) UA BLOOD DIPSTICK (test NEGATIVE Michael/micL NEGATIVE code = LZU) UA PH DIPSTICK (test code = 6.0 5.0-9.0 SHARON) UA PROTEIN DIPSTICK (test NEGATIVE mg/dl NEGATIVE code = PROU) UA UROBILINIOGEN DIPSTICK NORMAL mg/dl NORMAL (test code = URO) UA NITRITE DIPSTICK (test NEGATIVE NEGATIVE code = CHARLI) UA LEUKOCYTE ESTERASE NEGATIVE Naif/micL NEGATIVE DIPSTICK (test code = LEUU) UA WBC (test code = WBCU) 0-3 WBC/HPF NONE UA RBC (test code = RBCU) 0-2 RBC/HPF 0-3 UA EPITHELIAL CELLS (test 5-10 EPI/HPF 0-3 A code = EPIU) UA BACTERIA (test code = FEW NONE BACU) Indication for culture: Suprapubic PainSpecimen Description: CLEAN CATCHBASIC METABOLIC [id number] 00:18:00 Test Item Value Reference Range Interpretation Comments SODIUM (test code = 134 mmol/l 134.0-147.0 N NA) POTASSIUM (test 3.9 mmol/L 3.6-5.2 N code = K) CHLORIDE (test code 98 mmol/l 98.0-107.0 N = CL) CARBON DIOXIDE 26.4 mmol/l 21.0-33.0 N (test code = CO2) ANION GAP (test 13.5 0-20 N code = GAP) GLUCOSE (test code 94 mg/dl 70.0-110.0 N = GLU) BLOOD UREA NITROGEN 24 mg/dl 7.0-18.0 H (test code = BUN) GLOMERULAR 113 mL/min The Glomerular FILTRATION RATE Filtration R ate is a (test code = GFR) calculated parameterbased on serum Creatinine, pat ient age and sex. GFR va luesless than 60 mL/min/ 1.73 square meters a re indicative ofCh ronic Kidney Disease. Values less than 15 mL/min/1.73squa re meters indicate Kidney failure. The calculation for GFR is based on the CK D-EPI (2020) calculat ion. This formulais race indifferent and is the recommended for randall for GFRby the Nat nal Kidney Foundati on for Adults.The GFR will not calculate if th e sex is unknown or if thepatient's ag e is <18 years. CREATININE (test 0.55 mg/dL 0.60-1.30 L code = CREAT) CALCIUM (test code 8.9 mg/dl 8.0-10.5 N = CA) HEPATIC FUNCTION PANEL [id number] 00:18:00 Test Item Value Reference Range Interpretation Comments TOTAL PROTEIN (test code = PROT) 7.6 GM/DL 6.0-8.1 N ALBUMIN (test code = ALB) 3.1 gm/dL 3.2-4.7 L BILIRUBIN TOTAL (test code = 0.1 mg/dl 0.0-1.0 N BILT) BILIRUBIN DIRECT (test code = <0.1 mg/dl 0.0-0.3 N BILD) SGOT/AST (test code = AST) 12 Units/L 15-37 L SGPT/ALT (test code = ALT) 16 Units/L 12.0-78.0 N ALKALINE PHOSPHATASE TOTAL (test 113 Units/L 50.0-136.0 N code = ALKP) HCG SERUM [id number] 00:18:00 Test Item Value Reference Range Interpretation Comments HCG SERUM QUAL (test code = HCGQL) NEGATIVE NEGATIVE [id number] 00:18:00 Test Item Value Reference Range Interpretation Comments ALCOHOL (test code 0.00 gm/dL 0.00-0.00 N ETHYL ALC OHOL VALUES - = ALC) INTERPRETATION: 0.050 GM/DL - NOT INT OXICATED 0.100 GM/DL - INTOXICATED 0.3 50-0.450 GM/DL - SEVEREL Y INTOXICATED 0.5 50 GM/DL- FATAL INTOXICAT ION Coronavirus 2019 nCoV [id number] 00:09:00 Test Item Value Reference Range Interpretation Comments Coronavirus 2019 Negative NEGATIVE Negative re sults should be nCoV Bedside (test treated a s presumptive and code = ifinconsistent with [id number]) clinical signs and symptoms, or ne cessaryfor patient managem ent, should be tested with an alternativemole cular assay. Negative result s do not preclude HCCU-CtS-6cmpll tion and should not be u sed as the sole basis forp atient management deci sions. Negative result s should beconsidered in the context of a patient's recent exposures,histo ry, presence of clinical sig ns and symptoms consis tentwith COVID-19. CBC W/AUTO [id number] 23:58:00 Test Item Value Reference Range Interpretation Comments WHITE BLOOD CELL (test code = 7.0 K/mm3 4.5-11.0 N WBC) RED BLOOD CELL (test code = 3.81 M/mm3 3.80-5.20 N RBC) HEMOGLOBIN (test code = HGB) 11.1 gm/dL 12.0-16.0 L HEMATOCRIT (test code = HCT) 33.5 % 36.0-48.0 L MEAN CELL VOLUME (test code = 87.9 UM3 82.0-99.0 N MCV) MEAN CELL HGB (test code = MCH) 29.1 UUG 25.5-32.5 N MEAN CELL HGB CONCETRATION 33.1 gm/dL 29.0-35.5 N (test code = MCHC) RED CELL DISTRIBUTION WIDTH 14.9 % 11.5-15.0 N (test code = RDW) RED CELL DISTRIBUTION WIDTH SD 48.1 fL 34.8-50.2 N (test code = RDW-SD) PLATELET COUNT (test code = 246 K/mm3 150-400 N PLT) MEAN PLATELET VOLUME (test code 9.0 fl 7.4-10.4 N = MPV) NEUTROPHIL % (test code = NT%) 52.8 % 49.0-76.0 N IMMATURE GRANULOCYTE % (test 0.1 % 0.0-0.4 N code = IG%) LYMPHOCYTE % (test code = LY%) 29.3 % 23.0-38.0 N MONOCYTE % (test code = MO%) 12.8 % 1.0-10.0 H EOSINOPHIL % (test code = EO%) 4.3 % 1.0-5.0 N BASOPHIL % (test code = BA%) 0.7 % 0.0-1.0 N NUCLEATED RBC % (test code = 0.0 % 0.0-0.1 N NRBC%) NEUTROPHIL # (test code = NT#) 3.7 K/mm3 2.4-6.3 N IMMATURE GRANULOCYTE # (test 0.01 x10 3/uL 0.00-0.07 N code = IG#) LYMPHOCYTE # (test code = LY#) 2.0 K/mm3 1.2-4.0 N MONOCYTE # (test code = MO#) 0.9 K/mm3 0.0-0.6 H EOSINOPHIL # (test code = EO#) 0.3 K/MM3 0.0-0.7 N BASOPHIL # (test code = BA#) 0.1 K/mm3 0.0-0.2 N NUCLEATED RBC # (test code = 0.00 X10 3uL 0.00-0.01 N NRBC#) COMP. METABOLIC PANEL (91049)2022-09-07 02:12:41 Test Item Value Reference Range Interpretation Comments NA (test code = 133 mmol/L 135-145 L [id number]) K (test code = 4.4 mmol/L 3.5-5.0 5843011268) CL (test code = 102 mmol/L 98-108 8295890838) CO2 TOTAL (test code = 25 mmol/L 23-31 5564663168) AGAP (test code = 6 2-16 9104850115) BUN (test code = 22 mg/dL 7-23 0963009301) GLUCOSE (test code = 97 mg/dL 70-110 0364997221) CREATININE (test code = 0.40 mg/dL 0.50-1.04 L 3191618841) TOTAL BILI (test code = 0.3 mg/dL 0.1-1.9 0584884294) CALCIUM (test code = 8.9 mg/dL 8.6-10.6 0215418507) T PROTEIN (test code = 7.7 g/dL 6.3-8.2 8703028656) ALBUMIN (test code = 4.0 g/dL 3.5-5.0 4167265084) ALK PHOS (test code = 104 U/L 34-122 2265823935) ALTv (test code = 15 U/L 5-35 1742-6) AST(SGOT) (test code = 22 U/L 13-40 9924677653) eGFR (test code = 170.4 mL/min/1.73m2 8720538916) HANNAH (test code = HANNAH) Association of Glomerular Filtration Rate (GFR) and Staging of Kidney Disease* + --+ --+ ------+| GFR (mL/min/1.73 m2) ?| With Kidney Damage ?| ?Without Kidney Damage+ --------+ --------+ +| ?>90 ?| ?Stage one ?| ? Normal ?+ ---+ ---+ -------+| ?60-89 ?| ?Stage two ?| ? Decreased GFR ? + --+ --+ ------+| ?30-59 ?| ?Stage three ?| ? Stage three ? + --+ --+ ------+| ?15-29 ?| ?Stage four ? | ? Stage four ?+ ---+ ---+ -------+| ?<15 (or dialysis) ? ?| ?Stage five ? | ? Stage five ?+ ---+ ---+ -------+ *Each stage assumes the associated GFR level has been in effect for at least three months. ?Stages 1 to 5, with or without kidney disease, indicate chronic kidney disease. Notes: Determination of stages one and two (with eGFR >59mL/min/1.73 m2) requires estimation of kidney damage for at least three months as defined by structural or functional abnormalities of the kidney, manifested by either:Pathological abnormalities or Markers of kidney damage (including abnormalities in the composition of the blood or urine or abnormalities in imaging tests). Lab Interpretation Abnormal (test code = 54332-1) [facility] WITH [id number] 02:01:20 Test Item Value Reference Range Interpretation Comments WBC (test code = 6.17 See_Comment [Automated 7759-2) message] The sy stem which generated this result transmitted reference range : 4.30 - 11.10 10*3/?L. The reference range was not used to interpret this result as normal/abnormal . RBC (test code = 3.73 See_Comment L [Automated 966-8) message] The sy stem which generated this result transmitted reference range : 3.93 - 5.25 10*6/?L. The reference range was not used to interpret this result as normal/abnormal . HGB (test code = 10.9 g/dL 11.6-15.0 L 718-7) HCT (test code = 33.1 % 35.7-45.2 L 4544-3) MCV (test code = 88.7 fL 80.6-95.5 787-2) MCH (test code = 29.2 pg 25.9-32.8 785-6) MCHC (test code = 32.9 g/dL 31.6-35.1 786-4) RDW-SD (test code = 48.1 fL 39.0-49.9 52416-3) RDW-CV (test code = 14.7 % 12.0-15.5 788-0) PLT (test code = 272 See_Comment [Automated 777-3) message] The sy stem which generated this result transmitted reference range : 166 - 358 10*3/ ?L. The reference r kobi was not used to interpret this result as normal/abnormal . MPV (test code = 9.6 fL 9.5-12.9 84500-1) NRBC/100 WBC (test 0.0 See_Comment [Automat ed code = [id number]) message] The system which generated this result transmitted reference range : 0.0 - 10.0 /100 WBCs. The refer ence range was not u sed to interpret th is result as normal/abnormal . NRBC x10^3 (test code See_Comment [Auto mated = 4707044402) message] The s ystem which generated this result transmitted reference range : 10*3/?L. The reference range was not used to interpret this result as normal/abnormal . GRAN MAT (NEUT) % 42.2 % (test code = 770-8) IMM GRAN % (test code 0.20 % = 5060419076) LYMPH % (test code = 38.2 % 736-9) MONO % (test code = 12.6 % 5905-5) EOS % (test code = 5.8 % 713-8) BASO % (test code = 1.0 % 706-2) GRAN MAT x10^3(ANC) 2.60 10*3/uL 1.88-7.09 (test code = 8226350008) IMM GRAN x10^3 (test 0.00-0.06 code = 4183675854) LYMPH x10^3 (test code 2.36 10*3/uL 1.32-3.29 = 731-0) MONO x10^3 (test code 0.78 10*3/uL 0.33-0.92 = 742-7) EOS x10^3 (test code = 0.36 10*3/uL 0.03-0.39 711-2) BASO x10^3 (test code 0.06 10*3/uL 0.01-0.07 = 704-7) Lab Interpretation Abnormal (test code = 54841-5) [facility] ([facility]) by RT-PCR (HIGH RISK) 2020-08-19 00:00:00 Test Item Value Reference Range Interpretation Comments SARS-CoV-2 INTERPRETATION (test NEGATIVE code = 35058) SOURCE (test code = 31776) NOT SPECIFIED SARS-CoV-2 (COVID-19) by RT-PCR (HIGH RISK)2020-08-19 00:00:00 Test Item Value Reference Range Interpretation Comments SARS-CoV-2 INTERPRETATION (test NEGATIVE code = 74789) SOURCE (test code = 09959) NOT SPECIFIED PAP TEST, THINPREP, [id number] 00:00:00 Test Item Value Reference Range Interpretation Comments SOURCE: (test code = Cervical/Endocervical 8001) SLIDES: (test code = 1 8011) LMP: (test code = 8021) 06/2017 SPECIMEN ADEQUACY: (test (NOTE) code = 27963) INTERPRETATION: (test NILM/NO EPITH. code = 23488) ABNORMALITY;SEE BELOW DIRECTOR DIVERSITY: (test Malek code = 8101) KANA Wen(ASCP) IAC LOCATION: (test code = (NOTE) 39101) CPT: (test code = 8140) (NOTE) HPV HIGH RISK WITH GENOTYPE, [id number] 00:00:00 Test Item Value Reference Range Interpretation Comments HPV HIGH RISK INTERP (test code = NEGATIVE 68809) HPV 16 (test code = 14848) NEGATIVE HPV 18 (test code = 18237) NEGATIVE HPV, HR, OTHER GENOTYPES (test code NEGATIVE = 73417) HPV HIGH RISK WITH GENOTYPE, [id number] 00:00:00 Test Item Value Reference Range Interpretation Comments HPV HIGH RISK INTERP (test code = NEGATIVE 83575) HPV 16 (test code = 69286) NEGATIVE HPV 18 (test code = 16547) NEGATIVE HPV, HR, OTHER GENOTYPES (test code NEGATIVE = 55453) PAP TEST, THINPREP, [id number] 00:00:00 Test Item Value Reference Range Interpretation Comments SOURCE: (test code = Cervical/Endocervical 8001) SLIDES: (test code = 1 8011) LMP: (test code = 8021) 06/2017 SPECIMEN ADEQUACY: (test (NOTE) code = 02682) INTERPRETATION: (test NILM/NO EPITH. code = 52534) ABNORMALITY;SEE BELOW DIRECTOR DIVERSITY: (test Malek code = 8101) KANA Wen(ASCP) IAC LOCATION: (test code = (NOTE) 32844) CPT: (test code = 8140) (NOTE) CT HEAD WO [id number] 22:34:12Impression: 1. ?No acute intracranial process. 2. ?Diffuse cerebral volume loss which is slightly atypical and unexpectedgiven the age of the patient. Please correlate with history and physicalexamination.Exam: CT HEAD WO CONTRAST Clinical History: Headache, acute, normal neuro exam Technique:Thin section CT brain with multiplanar reformats Comparison: CT brain dated 05/25/2019 Findings: Brainstem, cerebellum are within normal limits. There is milddiffuse cerebral volume loss with prominentSulci, cisterns and ventricles, excessive for the age of the patient.Motion artifact slightly limits evaluationof the posterior fossa.There is no evidence of [...] is milddiffuse cerebral volume loss with prominentSulci, cisternsand ventricles, excessive for the age of the patient.Motion artifact slightly limits evaluation of the posterior fossa.There is no evidence of intracranial hemorrhage, mass, acute infarction,midline shift or mass effect. Included portions of the orbits are withinnormal limits. The mastoid air cells, paranasal sinuses are within normallimits.IMPRESSIONImpression:1. No acute intracranial process.2. Diffuse cerebral volume loss which is slightly atypical and unexpectedgiven the age of the patient. Please correlate with history and physicalexamination.[facility] SP[facility] 2 [id number] 22:29:40 No acute osseous abnormality. Preliminary Report Dictated by Resident: Kenny Cervantes MD., have reviewed this study and agree with theabove report.EXAM: XR CERVICAL SPINE 2 VW HISTORY: neck pain COMPARISON: 07/13/2019 FINDINGS: The vertebral bodies are normal in height and in normal alignment. Theintervertebral disc spaces are unremarkable. The prevertebral soft tissuesare withinnormal limits. [facility], Radiant Results Inft User - 07/22/2019 4:30 PM CSTEXAM: XR CERVICAL SPINE 2 VWHISTORY: neck pain COMPARISON: 07/13/2019FINDINGS:The vertebral bodies are normal in height and in normal alignment. Theintervertebral disc spaces are unremarkable. The prevertebral soft tissuesare withinnormal limits.IMPRESSIONNo acute osseous abnormality.Preliminary Report Dictated by Resident: Kenny Avalos MD., have reviewed this study and agree with theabove report.[facility] HospitalCBC WITH [id number] 21:46:00 Test Item Value Reference Range Interpretation Comments WBC (test code = See_Comment [Automated 8190-2) message] The sy stem which generated this result transmitted reference range : 4.30 - 11.10 10*3/?L. The reference range was not used to interpret this result as normal/abnormal . RBC (test code = See_Comment L [Automated 219-8) message] The sy stem which generated this result transmitted reference range : 3.93 - 5.25 10*6/?L. The reference range was not used to interpret this result as normal/abnormal . HGB (test code = 10.7 g/dL 11.6-15 L 718-7) HCT (test code = 33.2 % 35.7-45.2 L 4544-3) MCV (test code = 85.8 fL 80.6-95.5 787-2) MCH (test code = 27.6 pg 25.9-32.8 785-6) MCHC (test code = 32.2 g/dL 31.6-35.1 786-4) RDW-SD (test code = 45.1 fL 39-49.9 42244-2) RDW-CV (test code = 14.6 % 12-15.5 788-0) PLT (test code = See_Comment L [Automated 777-3) message] The sy stem which generated this result transmitted reference range : 166 - 358 10*3/ ?L. The reference r kobi was not used to interpret this result as normal/abnormal . MPV (test code = 9.0 fL 9.5-12.9 L 69268-8) NRBC/100 WBC (test See_Comment [Automat ed code = 8755702791) message] The system which generated this result transmitted reference range : 0.0 - 10.0 /100 WBCs. The refer ence range was not u sed to interpret th is result as normal/abnormal . NRBC x10^3 (test code <0.01 See_Comment [Auto mated = 7194888195) message] The s ystem which generated this result transmitted reference range : 10*3/?L. The reference range was not used to interpret this result as normal/abnormal . GRAN MAT (NEUT) % 51.3 % (test code = 770-8) IMM GRAN % (test code 0.40 % = 5268468384) LYMPH % (test code = 24.4 % 736-9) MONO % (test code = 23.1 % 5905-5) EOS % (test code = 0.4 % 713-8) BASO % (test code = 0.4 % 706-2) GRAN MAT x10^3(ANC) 2.48 10*3/uL 1.88-7.09 (test code = 6638843063) IMM GRAN x10^3 (test <0.03 0-0.06 code = 9012293581) LYMPH x10^3 (test code 1.18 10*3/uL 1.32-3.29 L = 731-0) MONO x10^3 (test code 1.12 10*3/uL 0.33-0.92 H = 742-7) EOS x10^3 (test code = <0.03 0.03-0.39 L 711-2) BASO x10^3 (test code <0.03 0.01-0.07 = 704-7) Lab Interpretation Abnormal (test code = 24279-9) [facility] 2 [id number] 03:28:03 No acute osseous abnormality. Preliminary Report [...] this study and agree withthe above report. [facility] HospitalValproic Acid [id number] 08:03:22 Test Item Value Reference Range Interpretation Comments Valproic Acid Level (test code 57.6 ug/mL(g) 50.0-100.0 = Valproic Acid Level) Hemoglobin [id number] 09:36:00 Test Item Value Reference Range Interpretation Comments Hemoglobin A1c (test code 5.0 % 4.8-5.9 No n Diabetic = Hemoglobin A1c) 4.8-5.9%Di abetic <7.0% CT Shoulder w/o Contrast [id number] 16:49:13Patient: BHUMIKA JONES Date/Time01/09/2019 16:14 CDTReason for [...] Adam FSigned (Electronic Signature): 01/09/2019 4:49 pmRPR [id number] 21:33:20 Test Item Value Reference Range Interpretation [...] Expiration Dt) XR Shoulder Complete 2+ Views [id number] 15:41:25Patient: BHUMIKA JONES Date/Time01/07/2019 15:25 CDTReason for [...] CSigned (Electronic Signature): 01/07/2019 3:41 pmThyroid Stimulating [id number] 03:07:04 Test Item Value Reference Range Interpretation Comments TSH (test code = TSH) 9.650 mIU/mL 0.270-4.200 H Lipid [id number] 03:07:03 Test Item Value Reference Range Interpretation Comments Cholesterol Total 199 mg/dL 0-200 RISK OF HE ART (test code = DISEASEPublishe d by Cholesterol Total) [place] [employer] Sel[place] lyte Optimal Borderl ine [...] LDL/HDL Ratio=L DL Calc/HDL Chol HCG Qualitative [id number] 02:33:13 Test Item Value Reference Range Interpretation Comments HCG, Serum Qual (test code = HCG, Negative Serum Qual) Lot # (test code = Lot #) [id number] Expiration Dt (test code = 2020-04-23 N Expiration Dt) Neg Control (test code = Neg Negative Control) Pos Control (test code = Pos Positive Control) Internal QC (test code = Internal Acceptable QC) Drugs of Abuse Urine [id number] 18:58:11 Test Item Value Reference Range Interpretation [...] (test code = Cannabinoid Screen Ur) Alcohol [id number] 18:47:34 Test Item Value Reference Range Interpretation Comments Ethanol Level (test <0.00 g/dL 0.00-0.01 Intoxica isabel 0.080 g/dL code = Ethanol or more Level) Ethanol Inst (test <0 N code = Ethanol Inst) Comprehensive Metabolic [id number] 18:47:33 Test Item Value Reference Range Interpretation [...] A/G 1.0 ratio N Ratio) Comprehensive Metabolic [id number] 18:47:33 Test Item Value Reference Range Interpretation [...] National Kid[employer] Foundation, [email or web address] [email or web address] Comprehensive Metabolic [id number] 18:47:33 Test Item Value Reference Range Interpretation [...] ag e have not been validated by e MDRD study and should be interpreted [...] not provided, and t he patient is femjada le, multiply by 0.7 42. Results for pat ients <18 years of ag e have not been validated by e MDRD study and should be interpreted wit h caution. eGFR R esult Interpretation: eGFR > or = 60 is in the Normal RangeeGF R < 60 may mean kid betzaida diseaseeGFR < 1 5 may mean kidney failure Rang es recommended by the [employer], [email or web address] Complete Blood Count with [id number] 18:15:23 Test Item Value Reference Range Interpretation [...] code = IPF) 0 % N Automated [id number] 18:15:23 Test Item Value Reference Range Interpretation Comments Neutro Auto (test code = Neutro 42.1 % 36.0-70.0 Auto) Lymph Auto (test code = Lymph Auto) 40.0 % 12.0-44.0 Aurora Auto (test code = Aurora Auto) 12.2 % 0.0-11.0 H Eos, Auto (test code = Eos, Auto) 4.9 % 0.0-7.0 Basophil Auto (test code = Basophil 0.6 % 0.0-2.0 Auto) Neutro Absolute (test code = Neutro 2.2 x10 1.6-7.4 Absolute) Lymph Absolute (test code = Lymph 2.06 x10 .50-4.60 Absolute) Aurora Absolute (test code = Aurora .63 x10 .00-1.20 Absolute) Eos Absolute (test code = Eos 0.25 x10 0.00-0.74 Absolute) Baso Absolute (test code = Baso 0.03 x10 0.00-0.21 Absolute) IG [id number] 18:15:23 Test Item Value Reference Range Interpretation Comments IG (test code = IG) 0.2 % 0.0-5.0 IG Abs (test code = IG Abs) 0 x10 N VALPROIC [id number] 00:00:00 Test Item Value Reference Range Interpretation Comments VALPROIC ACID (test code = 3025) 69.8 UG/ML VALPROIC [id number] 00:00:00 Test Item Value Reference Range Interpretation Comments VALPROIC ACID (test code = 3025) 69.8 UG/ML URINE CULTURE, NO [id number] 00:00:00 Test Item Value Reference Range Interpretation Comments URINE CULTURE, NO SPECIMEN NUMBER: SENS (test code = 11174399 [id number]) URINE CULTURE, NO [id number] 00:00:00 Test Item Value Reference Range Interpretation Comments URINE CULTURE, NO SPECIMEN NUMBER: SENS (test code = [id number]) IRON BINDING CAPACITY AND IRON AND % [id number] 00:00:00 Test Item Value Reference Range Interpretation Comments IRON, SERUM (test code = 2221) 42 UG/DL UNSATURATED IBC (test code = ) 279 UG/DL CALC TOTAL IBC (test code = 2076) 321 UG/DL CALC % IRON SAT (test code = 2078) 13 % IRON BINDING CAPACITY AND IRON AND % [id number] 00:00:00 Test Item Value Reference Range Interpretation Comments IRON, SERUM (test code = 2221) 42 UG/DL UNSATURATED IBC (test code = 76677) 279 UG/DL CALC TOTAL IBC (test code = 2076) 321 UG/DL CALC % IRON SAT (test code = 2078) 13 % [id number] 00:00:00 Test Item Value Reference Range Interpretation Comments FERRITIN (test code = 2074) 15 NG/ML [id number] 00:00:00 Test Item Value Reference Range Interpretation Comments FERRITIN (test code = 2074) 15 NG/ML [id number] 00:00:00 Test Item Value Reference Range Interpretation Comments TRANSFERRIN (test code = 4936) 269 MG/DL [id number] 00:00:00 Test Item Value Reference Range Interpretation Comments TRANSFERRIN (test code = 4936) 269 MG/DL FOLIC [id number] 00:00:00 Test Item Value Reference Range Interpretation Comments FOLIC ACID (test code = 2695) 5.4 UG/L FOLIC [id number] 00:00:00 Test Item Value Reference Range Interpretation Comments FOLIC ACID (test code = 2695) 5.4 UG/L CULTURE, URINE [ADDED]2018-06-12 00:00:00 Test Item Value Reference Range Interpretation Comments CULTURE, URINE (test SPECIMEN NUMBER: code = 37442) [id number] CULTURE, URINE [ADDED]2018-06-12 00:00:00 Test Item Value Reference Range Interpretation Comments CULTURE, URINE (test SPECIMEN NUMBER: code = 95022) [id number] VALPROIC [id number] 00:00:00 Test Item Value Reference Range Interpretation Comments VALPROIC ACID (test code = 3025) 100.9 UG/ML CBC W/AUTO [id number] 00:00:00 Test Item Value Reference Range Interpretation [...] code = 1015) 184 K/UL CBC W/AUTO [id number] 00:00:00 Test Item Value Reference Range Interpretation [...] code = 1015) 184 K/UL CBC W/AUTO [id number] 00:00:00 Test Item Value Reference Range Interpretation [...] COUNT (test code = 1015) 184 K/UL COMPREHENSIVE METABOLIC [id number] 00:00:00 Test Item Value Reference Range Interpretation Comments GLUCOSE (test code = 2217) 86 MG/DL BUN (test code = 2208) 16 MG/DL CREATININE (test code = 2214) 0.45 MG/DL eGFR AMER. (test code 141 ML/MIN/1.73 = 21582) eGFR NON- AMER. (test 122 ML/MIN/1.73 code = 93165) CALC BUN/CREAT (test code = 36 RATIO 2235) SODIUM (test code = 2231) 136 MEQ/L POTASSIUM (test code = 2228) 4.6 MEQ/L CHLORIDE (test code = 2215) 101 MEQ/L CARBON DIOXIDE (test code = 25 MEQ/L 2206) CALCIUM (test code = 2209) 8.7 MG/DL [...] code = 2219) 17 U/L COMPREHENSIVE METABOLIC [id number] 00:00:00 Test Item Value Reference Range Interpretation Comments GLUCOSE (test code = 2217) 86 MG/DL BUN (test code = 2208) 16 MG/DL CREATININE (test code = 2214) 0.45 MG/DL eGFR AMER. (test code 141 ML/MIN/1.73 = 90880) eGFR NON- AMER. (test 122 ML/MIN/1.73 code = 23806) CALC BUN/CREAT (test code = 36 RATIO 2235) SODIUM (test code = 2231) 136 MEQ/L POTASSIUM (test code = 2228) 4.6 MEQ/L CHLORIDE (test code = 2215) 101 MEQ/L CARBON DIOXIDE (test code = 25 MEQ/L 220) CALCIUM (test code = 2209) 8.7 MG/DL [...] (test code = 2219) 17 U/L VALPROIC [id number] 00:00:00 Test Item Value Reference Range Interpretation Comments VALPROIC ACID (test code = 3025) 100.9 UG/ML PAP TEST, THINPREP, [id number] 00:00:00 Test Item Value Reference Range Interpretation Comments SOURCE: (test code = Cervical/Endocervical 8001) SLIDES: (test code = 1 8011) LMP: (test code = 03/2017 80) SPECIMEN ADEQUACY: (NOTE) (test code = 17725) INTERPRETATION: (test NO EPITHELIAL code = 05553) ABNORMALITY SEE BELOW DIRECTOR DIVERSITY: Santi Elizondo, (test code = 8101) CT(ASCP)IAC LOCATION: (test code (NOTE) = 81264) CPT: (test code = (NOTE) 8140) PAP TEST, THINPREP, [id number] 00:00:00 Test Item Value Reference Range Interpretation Comments SOURCE: (test code = Cervical/Endocervical 8001) SLIDES: (test code = 1 8011) LMP: (test code = 03/2017 80) SPECIMEN ADEQUACY: (NOTE) (test code = 61445) INTERPRETATION: (test NO EPITHELIAL code = 41506) ABNORMALITY SEE BELOW DIRECTOR DIVERSITY: Santi Elizondo, (test code = 8101) CT(ASCP)IAC LOCATION: (test code (NOTE) = 00016) CPT: (test code = (NOTE) 8140) HPV HIGH RISK WITH GENOTYPE, [id number] 00:00:00 Test Item Value Reference Range Interpretation Comments HPV HIGH RISK INTERP (test code = NEGATIVE 28896) HPV 16 (test code = 65504) NEGATIVE HPV 18 (test code = 60075) NEGATIVE HPV, HR, OTHER GENOTYPES (test code NEGATIVE = 14029) HPV HIGH RISK WITH GENOTYPE, [id number] 00:00:00 Test Item Value Reference Range Interpretation Comments HPV HIGH RISK INTERP (test code = NEGATIVE 95298) HPV 16 (test code = 04873) NEGATIVE HPV 18 (test code = 47667) NEGATIVE HPV, HR, OTHER GENOTYPES (test code NEGATIVE = 65626) HIV AB/AG COMBO RFLX [id number] 00:00:00 Test Item Value Reference Range Interpretation Comments HIV 1/2 4TH GEN, RFLX CONF (test NON-REACTIVE code = 3514) GC AND CHLAMYDIA AMPLIFIED, [id number] 00:00:00 Test Item Value Reference Range Interpretation Comments GONORRHEA, TMA (test code = 76604) NEGATIVE CHLAMYDIA, TMA (test code = 68201) NEGATIVE HIV AB/AG COMBO RFLX [id number] 00:00:00 Test Item Value Reference Range Interpretation Comments HIV 1/2 4TH GEN, RFLX CONF (test NON-REACTIVE code = 3514) GC AND CHLAMYDIA AMPLIFIED, [id number] 00:00:00 Test Item Value Reference Range Interpretation Comments GONORRHEA, TMA (test code = 74722) NEGATIVE CHLAMYDIA, TMA (test code = 30704) NEGATIVE LIPID [id number] 00:00:00 Test Item Value Reference Range Interpretation Comments CHOLESTEROL (test code = 2210) 186 MG/DL TRIGLYCERIDES (test code = 2232) 131 MG/DL HDL CHOLESTEROL (test code = 2220) 67 MG/DL CALC LDL CHOL (test code = 2237) 93 MG/DL RISK RATIO LDL/HDL (test code = 1.39 RATIO 2238) LIPID [id number] 00:00:00 Test Item Value Reference Range Interpretation Comments CHOLESTEROL (test code = 2210) 186 MG/DL TRIGLYCERIDES (test code = 2232) 131 MG/DL HDL CHOLESTEROL (test code = 2220) 67 MG/DL CALC LDL CHOL (test code = 2237) 93 MG/DL RISK RATIO LDL/HDL (test code = 1.39 RATIO 2238) CBC W/AUTO [id number] 00:00:00 Test Item Value Reference Range Interpretation [...] code = 1015) 152 K/UL CBC W/AUTO [id number] 00:00:00 Test Item Value Reference Range Interpretation [...] code = 1015) 152 K/UL CBC W/AUTO [id number] 00:00:00 Test Item Value Reference Range Interpretation [...] (test code = 1015) 152 K/UL HEMOGLOBIN [id number] 00:00:00 Test Item Value Reference Range Interpretation Comments HEMOGLOBIN A1c (test code = 87575) 5.2 % HEMOGLOBIN [id number] 00:00:00 Test Item Value Reference Range Interpretation Comments HEMOGLOBIN A1c (test code = 91313) 5.2 % HEMOGLOBIN [id number] 00:00:00 Test Item Value Reference Range Interpretation Comments HEMOGLOBIN A1c (test code = 12225) 5.2 % [id number] 00:00:00 Test Item Value Reference Range Interpretation Comments TSH (test code = 2821) 2.020 UIU/ML [id number] 00:00:00 Test Item Value Reference Range Interpretation Comments TSH (test code = 2821) 2.020 UIU/ML [id number] 00:00:00 Test Item Value Reference Range Interpretation Comments TSH (test code = 2821) 2.020 UIU/ML COMPREHENSIVE METABOLIC [id number] 00:00:00 Test Item Value Reference Range Interpretation Comments GLUCOSE (test code = 2217) 90 MG/DL BUN (test code = 2208) 21 MG/DL CREATININE (test code = 2214) 0.42 MG/DL eGFR AMER. (test code 145 ML/MIN/1.73 = 75261) eGFR NON- AMER. (test 126 ML/MIN/1.73 code = 29847) CALC BUN/CREAT (test code = 50 RATIO 2235) SODIUM (test code = 2231) 139 MEQ/L POTASSIUM (test code = 2228) 4.0 MEQ/L CHLORIDE (test code = 2215) 99 MEQ/L CARBON DIOXIDE (test code = 24 MEQ/L 6) CALCIUM (test code = 2209) 9.3 MG/DL [...] code = 2219) <5 U/L COMPREHENSIVE METABOLIC [id number] 00:00:00 Test Item Value Reference Range Interpretation Comments GLUCOSE (test code = 2217) 90 MG/DL BUN (test code = 2208) 21 MG/DL CREATININE (test code = 2214) 0.42 MG/DL eGFR AMER. (test code 145 ML/MIN/1.73 = 46734) eGFR NON- AMER. (test 126 ML/MIN/1.73 code = 44796) CALC BUN/CREAT (test code = 50 RATIO 2234) SODIUM (test code = 2231) 139 MEQ/L POTASSIUM (test code = 2228) 4.0 MEQ/L CHLORIDE (test code = 2215) 99 MEQ/L CARBON DIOXIDE (test code = 24 MEQ/L 2205) CALCIUM (test code = 220) 9.3 MG/DL PROTEIN, TOTAL (test code = 7.1 G/DL 2228) ALBUMIN (test code = 220) 3.7 G/DL CALC GLOBULIN (test code = 3.4 G/DL 2239) CALC A/G RATIO (test code = 1.1 RATIO 2233) BILIRUBIN, TOTAL (test code = 0.1 MG/DL 2206) ALKALINE PHOSPHATASE (test 54 U/L code = 2204) AST (test code = 2218) 11 U/L ALT (test code = 2219) <5 U/L"
--- NOTE | 2022-10-22 19:19 | EDPHYS ---
Physician Documentation [facility] Name: Sidra Hodges Age: 47 yrs Sex: Female : 1975 Arrival Date: 10/22/2022 Time: 18:54 Bed 22 Private MD: ED Physician Pascual Lundy HPI: 10/22 19:07 This 47 yrs old Female presents to ER via EMS with complaints of Bit Lip. ry 19:07 The patient presents with bleeding, pain. The problem is located in the upper lip. ry Onset: The symptoms/episode began/occurred just prior to arrival. Duration: The symptoms are intermittent, with no pattern. Modifying factors: The symptoms are alleviated by nothing, the symptoms are aggravated by nothing. Associated signs and symptoms: The patient has no apparent associated signs or symptoms. Severity of symptoms: At their worst the symptoms were very mild, in the emergency department the symptoms have resolved, and did so just prior to arrival. The patient has experienced similar episodes in the past, several times. 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 - Social history:: Smoking status: Patient denies any tobacco usage or history of. - Family history:: not pertinent. ROS: 19:07 Constitutional: Negative for fever, chills, and weight loss, Eyes: Negative for injury, ry pain, redness, and discharge, Neck: Negative for injury, pain, and swelling, Cardiovascular: Negative for chest pain, palpitations, and edema, Respiratory: Negative for shortness of breath, cough, wheezing, and pleuritic chest pain, Abdomen/GI: Negative for abdominal pain, nausea, vomiting, diarrhea, and constipation, Back: Negative for injury and pain, : Negative for injury, bleeding, discharge, and swelling, MS/Extremity: Negative for injury and deformity, Skin: Negative for injury, rash, and discoloration, Neuro: Negative for headache, weakness, numbness, tingling, and seizure, Psych: Negative for depression, anxiety, suicide ideation, homicidal ideation, and hallucinations, Allergy/Immunology: Negative for hives, rash, and allergies, Endocrine: Negative for neck swelling, polydipsia, polyuria, polyphagia, and marked weight changes, Hematologic/Lymphatic: Negative for swollen nodes, abnormal bleeding, and unusual bruising. 19:07 ENT: Positive for MINIMAL MUCOSAL LACERATION/BITE. Exam: 19:07 Constitutional: This is a well developed, well nourished patient who is awake, alert, ry and in no acute distress. Head/Face: Normocephalic, atraumatic. Eyes: Pupils equal round and reactive to light, extra-ocular motions intact. Lids and lashes normal. Conjunctiva and sclera are non-icteric and not injected. Cornea within normal limits. Periorbital areas with no swelling, redness, or edema. Neck: Trachea midline, no thyromegaly or masses palpated, and no cervical lymphadenopathy. Supple, full range of motion without nuchal rigidity, or vertebral point tenderness. No Meningismus. Chest/axilla: Normal chest wall appearance and motion. Nontender with no deformity. No lesions are appreciated. Cardiovascular: Regular rate and rhythm with a normal S1 and S2. No gallops, murmurs, or rubs. Normal PMI, no JVD. No pulse deficits. Respiratory: Lungs have equal breath sounds bilaterally, clear to auscultation and percussion. No rales, rhonchi or wheezes noted. No increased work of breathing, no retractions or nasal flaring. Abdomen/GI: Soft, non-tender, with normal bowel sounds. No distension or tympany. No guarding or rebound. No evidence of tenderness throughout. Back: No spinal tenderness. No costovertebral tenderness. Full range of motion. Skin: Warm, dry with normal turgor. Normal color with no rashes, no lesions, and no evidence of cellulitis. MS/ Extremity: Pulses equal, no cyanosis. Neurovascular intact. Full, normal range of motion. Neuro: Awake and alert, GCS 15, oriented to person, place, time, and situation. Cranial nerves II-XII grossly intact. Motor strength 5/5 in all extremities. Sensory grossly intact. Cerebellar exam normal. Normal gait. Psych: Awake, alert, with orientation to person, place and time. Behavior, mood, and affect are within normal limits. 19:07 ENT: Mouth: Oral mucosa: moist, Gums: normal with healthy appearance, Tongue: is normal, abscess, is not appreciated, drooling, is not appreciated, Posterior pharynx: is normal, no acute changes, Airway: normal, no evidence of obstruction, Dental exam: normal. 19:18 Psych: Behavior/mood is pleasant, Affect is calm, Oriented to person, place, time, ry Patient has no thoughts/intents to harm self or others. Judgement / Insight is normal. Memory is normal. Delusions/hallucinations are not present. Vital Signs: 18:59 BP 131 / 105; Pulse 78; Resp 18; Pulse Ox 100% ; mb9 MDM: 19:01 Patient medically screened. ry 19:15 Differential diagnosis: dental caries, gingivitis, dental abscess. Data reviewed: vital ry signs, nurses notes, EMS record. Consideration of Admission/Observation Escalation of care including admission/observation considered. Test considered but Not performed: Labs: NO LABS. Historians other than the Patient: EMS: EMS CREW AND REPORT. Care significantly affected by the following chronic conditions: SEIZURES, ADHD,BIPOLAR. Counseling: I had a detailed discussion with the patient and/or guardian regarding: the historical points, exam findings, and any diagnostic results supporting the discharge/admit diagnosis, the need for outpatient follow up, for definitive care, a dentist, a psychiatrist. Administered Medications: No medications were administered Disposition Summary: 10/22/22 19:18 Discharge Ordered Location: Home ry Problem: new ry Symptoms: have improved ry Condition: Stable ry Diagnosis - Laceration of lip and oral cavity without foreign body ry - Bipolar disorder, unspecified ry Followup: ry - With: Private Physician - When: 2 - 3 days - Reason: Recheck today's complaints, Continuance of care, Re-evaluation by your physician Followup: ry - With: Miles Simpson MD - When: 2 - 3 days - Reason: Recheck today's complaints, Re-evaluation by your physician Discharge Instructions: - Discharge Summary Sheet ry - Mouth Laceration ry - Mouth Laceration, [id number] ry - Supporting Someone With Bipolar Disorder ry Forms: - Medication Reconciliation Form ry - Thank You Letter ry - Antibiotic Education ry - Prescription Opioid Use ry Signatures: Pascual Lundy MD MD cha Breneman, Mary Beth RN RN mb9
--- NOTE | 2022-10-22 19:19 | ER ---
Nurse's Notes [facility] Name: Sidra Hodges Age: 47 yrs Sex: Female : 1975 Arrival Date: 10/22/2022 Time: 18:54 Bed 22 Private MD: Diagnosis: Laceration of lip and oral cavity without foreign body;Bipolar disorder, unspecified Presentation: 10/22 18:59 Onset of symptoms was October 22, 2022. mb9 18:59 Chief complaint: EMS states: "pt bit her lip on purpose". Coronavirus screen: At this mb9 time, the client does not indicate any symptoms associated with coronavirus-19. Ebola Screen: No symptoms or risks identified at this time. Initial Sepsis Screen: Does the patient meet any 2 criteria? No. Patient's initial sepsis screen is negative. Does the patient have a suspected source of infection? No. Patient's initial sepsis screen is negative. Risk Assessment: Do you want to hurt yourself or someone else? Patient reports no desire to harm self or others. 18:59 Method Of Arrival: [facility] mb9 18:59 Acuity: CARMITA 5 mb9 Triage Assessment: 19:05 General: Appears in no apparent distress. Behavior is cooperative, appropriate for age. mb9 Pain: Denies pain. EENT: Oral mucosa is moist. no bleeding noted to bit lip. Neuro: Level of Consciousness is awake, alert, obeys commands, Oriented to person, place, time, situation, Appropriate for age. Cardiovascular: Patient's skin is warm and dry. Respiratory: Airway is patent Respiratory effort is even, unlabored, Respiratory pattern is regular, symmetrical. GI: No signs and/or symptoms were reported involving the gastrointestinal system. : No signs and/or symptoms were reported regarding the genitourinary system. Derm: Skin is pink, warm \\T\\ dry. Musculoskeletal: Range of motion: intact in all extremities. 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 - Social history:: Smoking status: Patient denies any tobacco usage or history of. - Family history:: not pertinent. Screenin:06 [facility] ED Fall Risk Assessment (Adult) History of falling in the last 3 months, mb9 including since admission No falls in past 3 months (0 pts) Confusion or Disorientation No (0 pts) Intoxicated or Sedated No (0 pts) Impaired Gait No (0 pts) Mobility Assist Device Used No (0 pt) Altered Elimination No (0 pt) Score/Fall Risk Level 0 - 2 = Low Risk Oriented to surroundings, Maintained a safe environment, Educated pt \\T\\ family on fall prevention, incl call for assistance when getting out of bed. 19:06 Abuse screen: Denies threats or abuse. Nutritional screening: No deficits noted. mb9 Tuberculosis screening: No symptoms or risk factors identified. Vital Signs: 18:59 BP 131 / 105; Pulse 78; Resp 18; Pulse Ox 100% ; mb9 ED Course: 18:55 Patient arrived in ED. rg4 18:59 Arm band placed on. mb9 19:00 Pascual Lundy MD is Attending Physician. [facility] 19:02 Triage completed. mb9 19:05 Yanira Hatfield, GERONIMO is Primary Nurse. mb9 19:06 Call light in reach. Side rails up X 1. Client placed on continuous cardiac and pulse mb9 oximetry monitoring. NIBP monitoring applied. 19:06 No provider procedures requiring assistance completed. Patient did not have IV access mb9 during this emergency room visit. 19:17 Miles Simpson MD is Referral Physician. ry Administered Medications: No medications were administered Medication: 19:06 VIS not applicable for this client. mb9 Outcome: 19:18 Discharge ordered by . ry 19:19 Discharged to home ambulatory. mb9 19:19 Condition: stable 19:19 Discharge instructions given to patient, Instructed on discharge instructions, follow up and referral plans. Demonstrated understanding of instructions, follow-up care. 19:19 Patient left the ED. mb9 Signatures: Pascual Lundy MD MD cha Garcia, Rubi rg4 Yanira Hatfield RN RN mb9
[2022-10-22 19:51] VITALS: BP 131/105; O2SAT 100
== END 2022-10-22 19:19 | disposition home or self-care (01) ==
LOC: ER 18:54
DX: S01.511A Laceration without foreign body of lip, initial encounter (principal); F31.9 Bipolar disorder, unspecified
CPT/HCPCS: 99283

== ENCOUNTER 2022-11-15 19:32 | Emergency (ER) | payer SELFPAY ==
--- OUTSIDE RECORDS SUMMARY | 2022-11-15 19:39 | XMS REPORT | Continuity of Care Document ---
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 18 /min [facility] Body weight 2021-05-05 19:20:00 79.379 kg [facility] BMI 2021-05-05 19:20:00 35.35 kg/m2 [facility] Oxygen saturation in 2021-05-05 19:20:00 99 /min University of Arterial blood by [facility] Pulse oximetry Branch Systolic blood 2019-12-15 22:12:00 138 mm[Hg] [facility] Diastolic blood 2019-12-15 22:12:00 100 mm[Hg] [facility] Heart rate 2019-12-15 22:12:00 77 /min [facility] Body temperature 2019-12-15 22:12:00 37.06 Oma [facility] Respiratory rate 2019-12-15 22:12:00 20 /min [facility] Body weight 2019-12-15 22:12:00 79.379 kg [facility] BMI 2019-12-15 22:12:00 35.35 kg/m2 [facility] Oxygen saturation in 2019-12-15 22:12:00 100 /min University of Arterial blood by [facility] gracie Pulse oximetry Branch Systolic blood 2019-12-15 22:12:00 138 mm[Hg] [facility] Diastolic blood 2019-12-15 22:12:00 100 mm[Hg] [facility] Heart rate 2019-12-15 22:12:00 77 /min [facility] Body temperature 2019-12-15 22:12:00 37.06 Oma [facility] Respiratory rate 2019-12-15 22:12:00 20 /min [facility] Body weight 2019-12-15 22:12:00 79.379 kg [facility] BMI 2019-12-15 22:12:00 35.35 kg/m2 [facility] Oxygen saturation in 2019-12-15 22:12:00 100 /min [facility] Arterial blood by [facility] Pulse oximetry Branch Respiratory rate 2019-10-25 23:43:00 18 /min [facility] Body weight 2019-10-25 23:43:00 83.915 kg [facility] BMI 2019-10-25 23:43:00 37.37 kg/m2 [facility] Respiratory rate 2019-10-25 23:43:00 18 /min [facility] Body weight 2019-10-25 23:43:00 83.915 kg [facility] BMI 2019-10-25 23:43:00 37.37 kg/m2 [facility] Systolic blood 2019-08-13 19:25:00 123 mm[Hg] [facility] Diastolic blood 2019-08-13 19:25:00 88 mm[Hg] [facility] Heart rate 2019-08-13 19:25:00 78 /min [facility] Body temperature 2019-08-13 19:25:00 36.56 Oma [facility] Respiratory rate 2019-08-13 19:25:00 18 /min [facility] Body height 2019-08-13 19:25:00 149.9 cm [facility] Body weight 2019-08-13 19:25:00 90.719 kg [facility] BMI 2019-08-13 19:25:00 40.40 kg/m2 [facility] Oxygen saturation in 2019-08-13 19:25:00 100 /min [facility] [place] [facility] Systolic blood 2019-08-13 19:25:00 123 mm[Hg] [facility] Diastolic blood 2019-08-13 19:25:00 88 mm[Hg] [facility] Heart rate 2019-08-13 19:25:00 78 /min [facility] [place] [facility] Body temperature 2019-08-13 19:25:00 36.56 Oma [facility] Respiratory rate 2019-08-13 19:25:00 18 /min [facility] Body height 2019-08-13 19:25:00 149.9 cm [facility] Body weight 2019-08-13 19:25:00 90.719 kg [facility] BMI 2019-08-13 19:25:00 40.40 kg/m2 [facility] Oxygen saturation in 2019-08-13 19:25:00 100 /min [facility] blood by [place] [employer] gracie Pulse oximetry Branch Systolic blood 2019-07-23 00:20:15 120 mm[Hg] [facility] Diastolic blood 2019-07-23 00:20:15 74 mm[Hg] [facility] Heart rate 2019-07-23 00:20:15 82 /min [facility] Respiratory rate 2019-07-23 00:20:15 19 /min [facility] Oxygen saturation in 2019-07-23 00:20:15 100 /min [facility] by [place] [employer] gracie Pulse oximetry Branch Body temperature 2019-07-22 19:41:00 36.33 Oma [facility] Body weight 2019-07-22 19:39:00 90.719 kg [facility] BMI 2019-07-22 19:39:00 39.06 kg/m2 [facility] Systolic blood 2019-07-23 00:20:15 120 mm[Hg] [facility] Diastolic blood 2019-07-23 00:20:15 74 mm[Hg] [facility] Heart rate 2019-07-23 00:20:15 82 /min [facility] Respiratory rate 2019-07-23 00:20:15 19 /min [facility] Oxygen saturation in 2019-07-23 00:20:15 100 /min [facility] of Arterial blood by [facility] gracie Pulse oximetry Branch Body temperature 2019-07-22 19:41:00 36.33 Oma [facility] Body weight 2019-07-22 19:39:00 90.719 kg [facility] BMI 2019-07-22 19:39:00 39.06 kg/m2 [facility] Systolic blood 2019-07-14 03:33:00 127 mm[Hg] [facility] Diastolic blood 2019-07-14 03:33:00 88 mm[Hg] [facility] Heart rate 2019-07-14 03:33:00 79 /min [facility] Respiratory rate 2019-07-14 03:33:00 16 /min [facility] Oxygen saturation in 2019-07-14 03:33:00 97 /min [facility] Arterial blood by [facility] Pulse oximetry Branch Body weight 2019-07-14 02:16:00 90.719 kg [facility] BMI 2019-07-14 02:16:00 39.06 kg/m2 [facility] Body temperature 2019-07-14 02:15:00 36.78 Oma [facility] Body weight 2019-07-10 20:39:00 90.719 kg [facility] BMI 2019-07-10 20:39:00 39.06 kg/m2 [facility] Systolic blood 2019-01-21 23:34:00 133 mm[Hg] [facility] Diastolic blood 2019-01-21 23:34:00 78 mm[Hg] [facility] Heart rate 2019-01-21 23:34:00 66 /min [facility] Body temperature 2019-01-21 23:34:00 36.94 Oma [facility] Respiratory rate 2019-01-21 23:34:00 18 /min [facility] Body height 2019-01-21 23:34:00 147.3 cm [facility] Body weight 2019-01-21 23:34:00 68.04 kg [facility] BMI 2019-01-21 23:34:00 31.35 kg/m2 [facility] Oxygen saturation in 2019-01-21 23:34:00 100 /min [facility] Arterial blood by [facility] Pulse oximetry Branch Systolic blood 2019-01-21 23:34:00 133 mm[Hg] [facility] Diastolic blood 2019-01-21 23:34:00 78 mm[Hg] Unive rsity of pressure [facility] Heart rate 2019-01-21 23:34:00 66 /min [facility] Body temperature 2019-01-21 23:34:00 36.94 Oma Univ ersity [facility] Branch Respiratory rate 2019-01-21 23:34:00 18 /min Univ ers[facility] of [facility] Branch Body height 2019-01-21 23:34:00 147.3 cm [facility] Body weight 2019-01-21 23:34:00 68.04 kg [facility] BMI 2019-01-21 23:34:00 31.35 kg/m2 Universi ty [facility] Oxygen saturation in 2019-01-21 23:34:00 100 /min [facility] of Arterial blood by [facility] Pulse oximetry Branch BP Systolic 2022-07-17 15:20:00 [...] COMP. METABOLIC PANEL 2022-09-07 01:38:00 Tayo Boyd [facility] ([id number]) Medical Branch CBC WITH DIFF 2022-09-07 01:38:00 Tayo Boyd [facility] URINALYSIS 2022-09-07 01:38:00 Tayo Boyd [facility] XR ANKLE <3 VW LEFT 2022-09-07 00:56:00 Tayo Boyd [facility] XR FOOT <3 VW LEFT 2022-09-07 00:56:00 Tayo Boyd [facility] CONSENT/REFUSAL FOR 2022-09-06 22:08:37 Doctor Unassigned, No Un [facility] DIAGNOSIS AND TREATMENT Name Medical Branch CT CERVICAL SPINE WO 2021-10-02 21:53:00 Javed Frank [facility] CONTRAST [facility] CT LUMBAR SPINE WO 2021-10-02 21:53:00 Javed Frank [facility] CONTRAST [facility] CT THORACIC SPINE WO 2021-10-02 21:53:00 Javed Frank [facility] CONTRAST [facility] XR FOREARM 2 VW RIGHT 2021-05-05 20:03:34 Deon Nunez [facility] XR WRIST 3+ VW RIGHT 2021-05-05 20:03:34 Deon Nunez [facility] NOTICE OF PRIVACY 2021-05-05 19:12:00 Doctor Unassigned, No [facility] [place] [facility] Name [facility] CONSENT/REFUSAL FOR 2021-05-05 19:11:19 Doctor Unassigned, No Un [facility] [place] [facility] Name [facility] CONSENT/REFUSAL FOR 2019-08-13 19:17:22 Doctor Unassigned, No Un [facility] [place] [facility] Name [facility] CT HEAD WO CONTRAST 2019-07-22 22:24:37 Ofe Samayoa [facility] XR CERVICAL SPINE 2 VW 2019-07-22 21:59:59 [facility] CBC WITH DIFFERENTIAL 2019-07-22 21:34:00 [facility] XR CERVICAL SPINE 2 VW 2019-07-14 02:43:00 Henry Owen [facility] XR ELBOW <3 VW LEFT 2019-07-14 02:43:00 Henry Owen [facility] XR KNEE <3 VW RIGHT 2019-07-14 02:43:00 Henry Owen [facility] XR SHOULDER <2 VW LEFT 2019-07-14 02:43:00 Henry Owen [facility] [id number] Ecg Routine Ecg 2017-09-24 00:00:00 W/least 12 Lds W/i r Plan of Care Planned Activity Planned Date Details Comments Source Goal Plan of Care Note [code = 26232-3] Goal Plan of Care Note [code = 97887-1] Goal Plan of Care Note [code = 30576-1] Goal Plan of Care Note [code = 05133-8] Goal Plan of Care Note [code = 69536-7] Goal Plan of Care Note [code = 00309-4] Goal Plan of Care Note [code = 56287-6] Goal Plan of Care Note [code = 17216-8] Goal Plan of Care Note [code = 39178-0] Goal Plan of Care Note [code = 74129-2] Goal Plan of Care Note [code = 26111-7] Goal Plan of Care Note [code = 75353-0] Goal Plan of Care Note [code = 20244-2] Goal Plan of Care Note [code = 81954-0] Goal Plan of Care Note [code = 06669-6] Goal Plan of Care Note [code = 13058-7] Goal Plan of Care Note [code = 94132-2] Goal Plan of Care Note [code = 22978-3] Goal Plan of Care Note [code = 28024-0] Goal Plan of Care Note [code = 58971-9] Goal Plan of Care Note [code = 65648-0] Goal Plan of Care Note [code = 93478-2] Goal Plan of Care Note [code = 08958-5] Goal Plan of Care Note [code = 10059-3] Goal Plan of Care Note [code = 05692-2] Goal Plan of Care Note [code = 37013-9] Goal Plan of Care Note [code = 47249-2] Goal Plan of Care Note [code = 29053-8] Goal Plan of Care Note [code = 18793-1] Encounters Start End Encounter Admission Attending Care Care Encounter Source Date/Time Date/Time Type Type Clinicians Facility Department ID 2022-11-13 Inpatient [facility] [id number] [facility] 13:10:28 [id number] [place] 2022-11-05 Inpatient [facility] [id number] [facility] 09:23:13 [id number] [place] 2022-11-04 2022-11-05 Emergency Linda [facility] [id number] [address] [place] [address] 14:04:00 11:09:00 JESS argueta [place] 2022-09-24 2022-09-24 Emergency Gwendolyn, YUDITH [id number] [facility] 12:33:00 12:51:00 Heri PRATHER [id number] magdi Rivera 4.2.7.2.686 [facility] [id number] [facility] 084 Branch 2022-09-22 2022-09-22 Nurse Marisa COX [id number] Univers 00:00:00 00:00:00 Triage Madhavi barclay ROCÍO [id number] ity of [facility] 4.2.7.2.686 Dinesh as [id number] [facility] 019 Branch 2022-09-18 2022-09-19 Inpatient EM Marly [facility] [id number] [facility] 10:09:00 14:28:00 25 [facility] 2022-09-16 2022-09-17 Emergency EM Guero, [facility] FABI [id number] [facility] 22:50:00 01:40:00 Asim 33 [facility] 2022-09-14 2022-09-15 Inpatient EM Andrei, [facility] TELE [id number] [facility] 14:52:00 14:00:00 Vladimir 75 [facility] 2022-09-13 2022-09-13 Emergency EM Jose C, [facility] FABI [id number] [facility] 09:34:00 13:00:00 Brad 75 [facility] 2022-09-10 2022-09-11 Emergency EM Donato, [facility] MEXP [id number] [facility] 23:39:00 11:28:00 Russel 51 [facility] yulissa [facility] 2022-09-10 2022-09-10 Emergency Lisa Morfin S [place] 1.2.84 0.114 [id number] Univers 18:57:00 20:20:00 Sandrita Key [facility] [id number] [place] [id number] [facility] 014 Branch 2022-09-10 2022-09-10 Emergency [facility] [id number] Univers 18:57:00 20:20:00 [facility] 2022-09-09 2022-09-09 Emergency [facility] ERT [id number] Univers 20:45:00 22:46:00 SANDRITA [facility] 2022-09-09 2022-09-09 Emergency Key, TRAUMA [id number] Univers 20:45:00 22:46:00 [facility] [id number] [place] [id number] [facility] 014 Branch 2022-09-06 2022-09-07 Emergency X PASHAUT, [facility] ERT [id number] Univers 18:09:00 00:51:00 TAYO ity of [facility] 2022-09-06 2022-09-07 Emergency Vasut, TRAUMA [id number] Univers 18:09:00 00:51:00 [facility] [id number] [place] [id number] [facility] 014 [place] 2022-08-21 2022-08-21 Outpatient SFA SFA [id number] Henry 14:11:33 14:11:33 0228 [place] 2022-07-17 2022-07-17 Outpatient SFA SFA [id number] Henry 15:03:48 15:03:48 0124 F [place] 2022-07-17 2022-07-17 Outpatient [id number] [id number] 00:00:00 00:00:00 Visit [id number] 2021-10-02 2021-10-02 Emergency X ZAC, [facility] ERT [id number] Univers 15:56:00 19:00:00 JAVED thacker [facility] 2021-10-02 2021-10-02 [facility] 1.2.840.114 [id number] Univers 15:56:00 19:00:00 Javed PRATHER [id number] i ty of [place] [id number] [facility] 084 Branch 2021-05-05 2021-05-05 Emergency [facility]RT [id number] Univers 13:22:00 14:48:00 DEON kedar [facility] 2021-05-05 2021-05-05 Emergency Singer [facility] [id number] Univers 13:22:00 14:48:00 Deon PRATHER 350.1.13.10 i ty of [place] 4.2.7.2.686 [facility] [id number] [address] 2021-05-05 2021-05-05 Orders Doctor KENNY 1.2.840.114 [id number] Univers 00:00:00 00:00:00 Only Unassigned, ROCÍO 350.1.13.10 ity of [place] [facility] 4.2.7.2.686 [facility] [id number] [address] 2019-12-15 2019-12-15 Emergency Kp Gilliland [facility] 1.2.840.114 [id number] 17:11:56 18:04:00 Marissa Prather 350.1.13.10 [place] 4.2.7.2.686 [place] [id number] [facility] 2019-12-15 2019-12-15 Emergency Talat [facility] 1.2.840.114 [id number] Univers 17:11:56 18:04:00 Marissa Prather 350.1.13.10 i ty of [place] 4.2.7.2.686 [facility] [id number] [address] 2019-12-15 2019-12-15 Emergency X TALAT, K [facility] ERT [id number] Univers 17:11:56 17:11:56 ity of [facility] 2019-10-25 2019-10-25 Emergency Paul, [facility] [id number] 18:31:31 19:21:00 Kristin Prather 350.1.13.10 [place] 4.2.7.2.686 [place] [id number] [facility] 2019-10-25 2019-10-25 Emergency [facility] [id number] [id number] Univers 18:31:31 19:21:00 Kristin Prather 350.1.13.10 i ty of [place] 4.2.7.2.[address] [place] [id number] 2019-10-25 2019-10-25 Emergency [facility] [id number] Univers 18:31:31 18:31:31 CYNISE ity [facility] 2019-08-13 2019-08-13 Emergency [facility] [id number] 13:30:00 14:36:00 Floridalma Prather 350.1.13.10 [place] 4.2.7.2.686 [place] [id number] [facility] 2019-08-13 2019-08-13 Emergency [facility] [id number] Univers 13:30:00 14:36:00 Floridalma Prather 350.1.13.10 i ty [place] [id number] [address] 2019-08-13 2019-08-13 Emergency [facility] ERT [id number] Univers 13:30:00 14:36:00 FLORIDALMA thacker [facility] 2019-07-22 2019-07-22 Emergency [facility] ERT [id number] Univers 13:42:11 19:02:00 LISA ity [facility] 2019-07-22 2019-07-22 Emergency Unknown, Attending TRAU[place] 1.2.8 40.114 [id number] Univers 13:42:11 19:02:00 Lisa Morfin S CENTER 350.1.13.10 [place] [id number] [address] 2019-07-22 2019-07-22 Emergency Unknown, Attending TRAUMA 1.2.8 40.114 [id number] 13:42:11 19:02:00 Lisa Morfin S CENTER 350.1.13.10 4.2.7.2.686 [id number] 2019-07-13 2019-07-13 Emergency X LEXIE [facility] ERT [id number] Univers 20:17:19 21:48:00 HENRY ity [facility] 2019-07-13 2019-07-13 Emergency Lexie, TRAUMA 1.2.769.242 [id number] Univers 20:17:19 21:48:00 Henry CENTER 350.1.13.10 [place] [id number] [address] 2019-07-10 2019-07-10 Emergency [facility] ERT [id number] Univers 14:26:03 16:33:00 DEBBIE thacker [facility] 2019-07-10 2019-07-10 Emergency [facility] 1.2.840.114 [id number] Univers 14:26:03 16:33:00 Debbie Prather 350.1.13.10 ity [facility] 4.2.7.2.686 [facility] [id number] [address] 2019-07-04 2019-07-04 Emergency [facility] ERT [id number] Univers 19:09:02 22:51:00 LISA thacker [facility] 2019-06-30 2019-06-30 Emergency X [facility] ERT [id number] Univers 10:33:08 13:10:00 DEON thacker [facility] 2019-05-25 2019-05-25 Emergency X [facility] ERT [id number] Univers 11:58:19 15:37:00 DEON [facility] 2019-04-09 2019-04-09 Emergency [facility] ERT [id number] Univers 22:29:37 23:28:00 FLORIDALMA [facility] 2019-01-21 2019-01-21 Emergency [facility] [id number] Univers 18:38:01 19:59:00 Le Mota Lisa 350.1.13.10 [facility] [place] [id number] 2019-01-21 2019-01-21 Emergency [facility] [id number] 18:38:01 19:59:00 Le Prather 350.1.13.10 [place] [address] [place] [address] [id number] Results Test Description Test Time Test Comments Results Result Comments Source DRUGS OF ABUSE 2022-11-05 05:03:00 Test Item Value Reference Range Interpretation Comme nts DRUG SCRN (test code = HDOA) URINE DRUG SCREEN This is an unconfirmed screening result and should not be used for non-medical purposes CANNABINOD (test code = 88C) NEGATIVE NEGATIVE AMPHETAMINE (test code = 84A) NEGATIVE NEGATIVE BENZODIAZP (test code = 86A) NEGATIVE NEGATIVE BARBITURAT (test code = 85A) NEGATIVE NEGATIVE OPIATES (test code = 92B) NEGATIVE NEGATIVE COCAINE (test code = 87A) NEGATIVE NEGATIVE PHENCYCLID (test code = 66A) NEGATIVE NEGATIVE METHADONE (test code = 64A) NEGATIVE NEGATIVE DOAH (test code = DOAH.) URINE DRUGSCREEN Cut-off values are as follows: Cannabinoids 50 ng/mL Cocaine 300 ng/mL Amphetamines 1000 ng/mL Phencyclidine 25 ng/mL Benzodiazepines 200 ng.mL Methadone 300 ng/mL Barbiturates 200 ng/mL Opiates 300 ng/mL URINALYSIS WITH [id number] 04:56:00 Test Item Value Reference Range Interpretation Comments COLOR (test code = COLU) YELLOW YELLOW CLARITY (test code = CLA) CLEAR CLEAR GLUCOSE UR (test code = UA GLUCOSE) NEGATIVE NEGATIVE BILI UR (test code = BILE) NEGATIVE NEGATIVE KETONES UR (test code = DEN) NEGATIVE NEGATIVE SP GRAVITY (test code = SPGR) 1.024 1.005-1.030 PH UR (test code = PH) 6.0 4.5-8.0 PROTEIN UR (test code = PU) NEGATIVE NEGATIVE UROBIL UR (test code = UROQ) 0.2 EU/dL 0.2-1.0 NITRITE UR (test code = NITRITE) NEGATIVE NEGATIVE BLOOD UR (test code = UA BLOOD) NEGATIVE NEGATIVE LEUK ES UR (test code = LEUK) TRACE NEGATIVE A WBC UR (test code = UWBC) 1 /HPF 0-5 RBC UR (test code = URBC) 0 /HPF 0-2 EPITH UR (test code = UEPC) FEW /LPF FEW BACTERIA UR (test code = UBACT) NONE /HPF NONE CAST UR (test code = CAST) /LPF NONE CRYSTAL UR (test code = CRYU) / LPF NONE MUCUS UR (test code = MUC) / HPF NONE AMORPH UR (test code = SHARI) / HPF NONE TRICH UR (test code = UTRICH) /HPF NONE YEAST UR (test code = UY) /HPF NONE SPERM UR (test code = USPERM) /HPF NONE URINE [id number] 04:53:00 Test Item Value Reference Range Interpretation Comments PREG UR (test code = PGU) NEGATIVE NEGATIVE SARS-CoV (RAPID ANTIGEN)2022-11-04 17:00:00 Test Item Value Reference Range Interpretation Comments SARS-CoV (ANTIGEN) NEGATIVE NEGATIVE (test code = COVAG) COVID AG (test This test has been code = COVAGC) marketed under the FDA Emergency Use Authorization (EUA) to meet challenges of the COVID-19 pandemic. The validation standards normally enforced by the FDA and the [employer] the [employer] (CAP) are more stringent than those required for this test. Therefore, the result should be interpreted with caution and close attention to other clinical and epidemiological data [id number] 16:00:00 Test Item Value Reference Range Interpretation Comments SALICYLATE (test code = 94B) <3.0 mg/dL 15.0-30.0 L LIVER [id number] 15:49:00 Test Item Value Reference Range Interpretation Comments BILI TOTAL (test 0.2 mg/dL 0.2-1.0 code = 11A) BILI DIRCT (test <0.1 mg/dL 0.0-0.3 Unable to calculate code = 12A) Indirect Bili d ue to low test result s PROTEIN (test code = 7.2 g/dL 5.7-8.2 07D) ALBUMIN (test code = 3.6 g/dL 3.2-4.8 08D) GLOBULIN (test code 3.6 g/dL 1.5-3.8 = GLB) ALB/GLOB (test code 1.0 1.0-2.6 = AGRR) ALK PHOS (test code 87 IU/L 46-116 = 35A) AST (test code = 16 IU/L See_Comment [Automated message] 30A) The system [employer] generated this result transmitted ref erence range: <=33. Th e reference range was not used to interpr et this result as normal/abnormal . ALT (test code = <7 IU/L 10-49 L 31A) [id number] 15:48:00 Test Item Value Reference Range Interpretation Comments ACETAMINPH (test code = 94M) <0.2 mg/dL 1.2-2.5 L ALCOHOL BLOOD (ETOH)2022-11-04 15:48:00 Test Item Value Reference Range Interpretation Comments ETOH (test code = ETHANOL HALC) The result is to be used only for medical purposes ALCOHOL (test <10 mg/dL See_Comment [Automated me ssage] code = 56A) The system [employer] generated this result transmit isabel reference range : <=10. The refer ence range was not u sed to interpret th is result as normal/abnormal . AMMONIA [id number] 15:48:00 Test Item Value Reference Range Interpretation Comments AMMONIA (test code = 54A) <10 umol/L 11-32 L CBC (INCLUDES AUTOMATED DIFFERENTIAL)2022-11-04 15:36:00 Test Item Value Reference Range Interpretation Comments WBC (test code = WBC) 6.0 10\\S\\3/uL 4.5-11.0 RBC (test code = RBC) 3.50 10\\S\\6/uL 4.20-5.60 L HGB (test code = HBG) 10.2 g/dL 12.0-15.5 L HCT (test code = HCT) 31.0 % 35.0-44.0 L MCV (test code = MCV) 88.6 fL 81.0-99.0 MCH (test code = MCH) 29.1 pg 27.0-31.0 MCHC (test code = MCHC) 32.9 g/dL 32.0-36.0 RDW (test code = RDW) 14.5 % 11.5-14.5 PLT (test code = PLT) 142 10\\S\\3/uL 130-400 MPV (test code = MPV) 9.3 fL 9.4-12.4 L NEUTROP # (test code = NE#) 2.9 10\\S\\3/uL 1.6-8.0 LYMPH # (test code = LY#) 1.8 10\\S\\3/uL 1.1-3.5 MONOCYTE # (test code = MO#) 1.0 10\\S\\3/uL 0.0-1.1 EOSINOPH # (test code = EO#) 0.4 10\\S\\3/uL 0.0-0.7 BASOPHIL # (test code = BA#) 0.0 10\\S\\3/uL 0.0-0.3 IG # (test code = IG#) 0.02 10\\S\\3/uL 0.00-0.06 NRBC # (test code = NRBC#) 0.00 10\\S\\3/uL 0.00-0.01 NEUTROPH % (test code = NE%) 47.3 % 35.0-73.0 LYMPH % (test code = LY%) 29.7 % 20.0-55.0 MONO % (test code = MO%) 15.9 % 2.5-10.0 H EOSINOPH % (test code = EO%) 6.1 % 0.0-5.0 H BASOPHIL % (test code = BA%) 0.7 % 0.0-2.0 IG % (test code = IG%) 0.3 % 0.0-0.8 NRBC% (test code = NRBC%) 0.0 % 0.0-0.2 MANDIFF (test code = MDIFF) NO BASIC METABOLIC [id number] 15:31:00 Test Item Value Reference Range Interpretation Comments GLUCOSE (test code 94 mg/dL 75-100 = 06D) SODIUM (test code 136 mmol/L 136-145 = 01A) POTASSIUM (test 3.9 mmol/L 3.6-5.1 code = 01B) CHLORIDE (test 104 mmol/L 98-107 code = 04A) CO2 (test code = 28 mmol/L -31 02A) ANION GAP (test 7.9 mmol/L code = ANG) BUN (test code = 20 mg/dL 9-23 05D) CREATININE (test 0.6 mg/dL 0.6-1.0 code = 03E) GFR (test code = 107 See_Comment [Automated GFR) mL/min/1.73m\\S\\2 message] Th e system which generated this result transmit isabel reference range : >=90. The reference range was not used to interpret this result as normal/abnormal . GFR 125 See_Comment [Automated LEBANESE (test mL/min/1.73m\\S\\2 message] The code = GFRAA) system which generated this result transmit isabel reference range : >=90. The reference range was not used to interpret this result as normal/abnormal . EGFR (test code = eGFR BY EGFR) CKD-EPI CALCULATION IS NOT RECOMMENDED FOR PATIENTS UNDER 18 YEARS OF AGE. 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 Old healed fractures of the distal tibia and fibular noted.Soft tissues: Unremarkable.IMPRESSION: No acute findings.Electronically signed by: Nikko Santiago MD 11/04/2022 3:10 PM CDT [id number] BEDSIDE [id number] 11:51:00 Test Item Value Reference Range Interpretation Comments GLUCOSE BEDSIDE TESTING (test code = 79 MG/DL 70-119 N GLUBED) GLUCOSE BEDSIDE [id number] 06:23:00 Test Item Value Reference Range Interpretation Comments GLUCOSE BEDSIDE TESTING (test code = 80 MG/DL 70-119 N GLUBED) BASIC METABOLIC [id number] 05:12:00 Test Item Value Reference Range Interpretation [...] (test code = MG Index/DL The system [employer]) generated this result transmitted ref erence range: 1 NORMAL . The reference range was not used to int erpret this result as normal/abnormal . INDEX ICTERIC 1 NORMAL <2 MG See_Comment [Automated message] (test code = Index/DL The system [employer] ICTThe [employer]) generated this result transmitted ref erence range: 1 NORMAL . The reference range was not used to int erpret this result as normal/abnormal . INDEX LIPEMIA 1 NORMAL <50 See_Comment [Automated me ssage] (test code = MG Index/DL The system [employer] LIPThe [place] Citizen) generated this result transmitted ref erence range: [...] indicates None DetectedPerform ed At: [facility] [address], [place] [id number] keven Argueta MD Ph:[phone] GLUCOSE BEDSIDE [id number] 19:51:00 Test Item Value Reference Range Interpretation Comments GLUCOSE BEDSIDE TESTING (test code 129 MG/DL 70-119 H = GLUBED) OSMOLALITY [id number] 17:56:00 Test Item Value Reference Range Interpretation Comments OSMOLALITY SERUM (test code = 269 mOsm/kg 275-300 L OSMO) THYROID STIMULATING [id number] 17:56:00 Test Item Value Reference Range Interpretation Comments THYROID STIMULATING HORMONE 4.190 mc IU/ML 0.340-4.820 N (test code = TSH) GLUCOSE BEDSIDE [id number] 15:49:00 Test Item Value Reference Range Interpretation Comments GLUCOSE BEDSIDE TESTING (test code = 86 MG/DL 70-119 N GLUBED) CREATINE KINASE (CK)2022-09-18 14:33:00 Test Item Value Reference Range Interpretation Comments CREATINE KINASE (CK) (test code = 145 Unit/L 26-192 N CK) VALPROIC ACID (DEPAKENE)2022-09-18 14:26:00 Test Item Value Reference Range Interpretation Comments VALPROIC ACID (DEPAKENE) (test 37.5 mcG/ML 50.0-100.0 L code = VALP) [id number] 14:26:00 Test Item Value Reference Range Interpretation Comments AMMONIA (test code = AMM) 29.0 mcMOL/L 11.0-32.0 N GLUCOSE BEDSIDE [id number] 11:51:00 Test Item Value Reference Range Interpretation Comments GLUCOSE BEDSIDE TESTING (test code = 88 MG/DL 70-119 N GLUBED) GLYCOSYLATED HEMOGLOBIN (HA1C)2022-09-18 06:53:00 Test Item Value Reference Range Interpretation Comments GLYCOSYLATED HEMOGLOBIN (HA1C) 5.2 % IS-A1C 4.5-5.6 N (test code = GLYHGB) ESTIMATED AVERAGE [id number] 06:53:00 Test Item Value Reference Range Interpretation [...] ave rage [Automated mess age] The system ic h generated this result transmit isabel reference range : 1.48-3.22 Avg. The reference range was not used to interpret this result as normal/abnormal . INDEX HEMOLYSIS (test 1 NORMAL <10 See_Comment [Auto mated code = HEMINDEX) MG Index/DL message] Th e system which generated this result transmitted reference range : 1 NORMAL. The reference range was not used to interpret this result as normal/abnormal . INDEX ICTERIC (test 1 NORMAL <2 MG See_Comment [Auto mated code = ICTINDEX) Index/DL message] Th e system which generated this result transmitted reference range : 1 NORMAL. The reference range was not used to interpret this result as normal/abnormal . INDEX LIPEMIA (test 1 NORMAL <50 See_Comment [Automa isabel code = LIPINDEX) MG Index/DL message] Th e system which generated this result transmitted reference range : 1 NORMAL. The reference range was not used to interpret this result as normal/abnormal . UR [id number] 21:28:00 Test Item Value Reference Range Interpretation Comments UR SODIUM RANDOM 93 mmol/L 40-200 N (test code = JESUSITA) UR POTASSIUM RANDOM 54.8 mmol/L 25-125 N NO ESTAB LISHED NORMAL (test code = KU) RANGES FOR RANDOM SPECIMENS. UR CHLORIDE RANDOM 164 mmol/L 110-150 H (test code = CLU) UR OSMOLALITY [id number] 21:28:00 Test Item Value Reference Range Interpretation Comments UR OSMOLALITY RANDOM (test code = 475 mOsm/kg 100-1400 N OSMOU) CBC W/O [id number] 20:05:00 Test Item Value Reference Range Interpretation [...] = 9.5 fL 6.8-11.2 N MPV) LACTIC [id number] 19:35:00 Test Item Value Reference Range Interpretation Comments LACTIC ACID (test code = LACT) 1.0 mmol/L 0.4-2.0 N HCG SERUM [id number] 19:31:00 Test Item Value Reference Range Interpretation Comments HCG SERUM QUAL (test code = Negative SCREEN NEG HCGQL) - CT HEAD/BRAIN W/O [id number] 18:59:00 [facility] : 1975 Sex: F Patient Name: BHUMIKA JONES Unit No: [id number] EXAMS: CPT CODE: [id number] CT HEAD/BRAIN W/O CONT 38997 Location: H3 CT head, conducted on 09/17/22 at 1837 hours COMPARISON EXAMS:Head CT exam of 09/17/22 at 00:06 hours TECHNIQUE: CT examination of the brain was performed without contrast on a helical scanner. Scanning conducted from skull base to vertex in the axial plane acquiring contiguous 5mm slice thickness . The examination was performed on [...] from the exam acquired earlier today. at 1859 Reported and signed by: Nati Hunt M.D. CC: Valentina Samayoa MD Dictated Date/Time: 09/17/2022 (1858) Technologist: VREO Marie(Abner)(CT) CTDI: DLP: Trnscrpt: 09/17/2022 (1858) [email or web address] DENIZ Lugo NAME: KRUNAL JONES[address] PHYS: Valentina Mattson MD, [place] [address] : 1975 AGE: 47 SEX: F LOC: MITCHELLED 20 PHONE #: [phone] EXAM DATE: 09/17/2022 STATUS: ADM IN FAX #: [phone] RAD #: D/C DT PAGE 1 Signed Report Patient Name: BHUMIKA JONES Unit No: [id number] EXAMS: CPT CODE: [id number] CT HEAD/BRAIN W/O CONT 18675 (Continued) Orig Print D/T: S: 09/17/2022 (1901) DENIZ Lugo NAME: KRUNAL JONES[address] PHYS: aVlentina Mattson [place] [address] : 1975 AGE: 47 SEX: F LOC: B.ERMED 20 PHONE #: [phone] EXAM DATE: 09/17/2022 STATUS: ADM IN FAX #: [phone] RAD #: D/C DT PAGE 2 Signed ReportURINALYSIS [id number] 16:28:00 Test Item Value Reference Range Interpretation [...] (test 6.5 pH UNITS 4.6-8.0 code = SHARON) UA [...] code = SQU) DRUGS OF ABUSE SCREEN [id number] 16:28:00 Test Item Value Reference Interpretation Comments [...] this result as normal/abnormal . TROP-I HIGH [id number] 16:26:00 Test Item Value Reference Range Interpretation [...] URLs may vary b ymethod. BASIC METABOLIC [id number] 16:25:00 Test Item Value Reference Range Interpretation [...] (test code = MG Index/DL The system [employer]) generated this result transmitted ref erence range: 1 NORMAL . The reference range was not used to int erpret this result as normal/abnormal . INDEX ICTERIC 1 NORMAL <2 MG See_Comment [Automated message] (test code = Index/DL The system [employer]) generated this result transmitted ref erence range: 1 NORMAL . The reference range was not used to int erpret this result as normal/abnormal . INDEX LIPEMIA 1 NORMAL <50 See_Comment [Automated me ssage] (test code = MG Index/DL The system [employer] LIPThe [place] [employer]) generated this result transmitted ref erence range: 1 NORMAL . The reference range was not used to int erpret this result as normal/abnormal . HEPATIC FUNCTION [id number] 16:25:00 Test Item Value Reference Range Interpretation [...] code = 92 Unit/L 26-192 N CK) [id number] 16:25:00 Test Item Value Reference Range Interpretation Comments LIPASE (test code = LIP) 57 Unit/L 114-286 L - CT HEAD/BRAIN W/O [id number] 00:32:00 [facility] : 1975 Sex: F Patient Name: BHUMIKA JONES Unit No: [id number] EXAMS: CPT CODE: [id number] CT HEAD/BRAIN W/O [id number] EXAM: - CT HEAD/BRAIN W/O CONT LOCATION: H57 HISTORY: 47 years- year old Female with sz TECHNIQUE: Computerized tomography images from the skull base to the vertex were obtained. Coronal and sagittal reformatted images are provided. This exam was performed according to our departmental dose-optim ization program, which includes automated exposure control, adjustment of the mA and/or kV accordingto patient size and/or use of iterative reconstruction technique COMPARISON: 09/14/2022 FINDINGS: Brain: The brain parenchyma is unremarkable. There is no evidence of an acute territorial infarct. Thereis no mass effect, midline shift, or parenchymal [...] abnormality. at 0032 Reported and signed by: Jess Iglesias MD CC: Dictated Date/Time: 09/17/2022 (31) Technologist: Terry August CTDI: DLP: Trnscrpt: 09/17/2022 (31) [email or web address] DENIZ Lugo NAME: JONES[address] PHYS: YASMIN - [place] [address] : 1975 AGE: 47 SEX: F LOC: B.ERS PHONE #: [phone] EXAM DATE: 09/16/2022 STATUS: REG ER FAX #: [phone] RAD #: D/C DT PAGE 1 Signed Report Patient Name: ROBERTMALDEN Unit No: [id number] EXAMS: CPT CODE: [id number] CT HEAD/BRAIN W/O [id number] (Continued) Orig Print D/T: S: 09/17/2022 (34) DENIZ Lugo NAME: JONES[address] PHYS: YASMIN - Asim Jack MD [place] [address] : 1975 AGE: 47 SEX: F LOC: B.ERS PHONE #: [phone] EXAM DATE: 09/16/2022 STATUS: REG ER FAX#: [phone] RAD #: D/C DT PAGE 2 Signed ReportTROP-I HIGH [id number] 00:13:00 Test Item Value Reference Range Interpretation [...] URLs may vary b ymethod. COMPREHENSIVE METABOLIC [id number] 00:11:00 Test Item Value Reference Range Interpretation [...] (test code = MG Index/DL The system [employer]) generated this result transmitted ref erence range: [...] this result as normal/abnormal . CBC W/AUTO [id number] 23:59:00 Test Item Value Reference Range Interpretation [...] 0.0-0.05 N NRBC#) - XR CHEST 1 [id number] 23:34:00 [facility] : 1975 Sex: F [place]: St: PRE -- Patient Name: BHUMIKA JONES Unit No: [id number] EXAMS: CPT CODE: [id number] XR CHEST 1 V 20880 EXAMINATION: - XR CHEST 1 V CLINICAL [...] Flo Jansen MD CC: Dictated Date/Time: 09/16/2022 (4895)Technologist: Muna Monet Transcribed Date/Time: 09/16/2022 (4454) By: [email or web address] Orig Print D/T: S: 09/16/2022 (8676) DENIZ Lugo NAME: ESTHELA KING[address] PHYS: IGNACIO.Deirdre - Asim Jack MD, [place] [address] : 1975 AGE: 47 SEX: F LOC: B.ERS PHONE #: [phone] EXAM DATE: 09/16/2022 STATUS: PRE ER FAX #: [phone] RAD NO: DC Dt: PAGE 1 Signed [...] <2.0 indicates None DetectedPerform ed At: [facility] [address] [id number] keven Argueta MD Ph:[phone] VALPROIC ACID (DEPAKENE)2022-09-15 06:12:00 Test Item Value Reference Range Interpretation Comments VALPROIC ACID (DEPAKENE) (test 80.6 mcG/ML 50.0-100.0 N code = VALP) COMPREHENSIVE METABOLIC [id number] 06:00:00 Test Item Value Reference Range Interpretation [...] (test code = MG Index/DL The system [employer]) generated this result transmitted ref erence range: [...] this result as normal/abnormal . CBC W/AUTO [id number] 05:37:00 Test Item Value Reference Range Interpretation [...] 0.00 K/mm3 0.0-0.05 N NRBC#) GLUCOSE BEDSIDE [id number] 20:03:00 Test Item Value Reference Range Interpretation Comments GLUCOSE BEDSIDE TESTING (test code 117 MG/DL 70-119 N = GLUBED) DRUGS OF ABUSE SCREEN [id number] 11:42:00 Test Item Value Reference Interpretation Comments [...] are available. Clin ical consideration andprofessional judgement surjit d be applied to any drug ofabuse test re sult, particularly wh en preliminary positiveresults are used. [Automate d message] The sy stem which generated this result transmit isabel reference range : <25 NG/ML. The refe rence range was not u sed to interpret this result as normal/abnormal . - CT HEAD/BRAIN W/O [id number] 11:37:00 [facility] : 1975 Sex: F Patient Name: BHUMIKA JONES Unit No: [id number] EXAMS: CPT CODE: [id number] CT HEAD/BRAIN W/O [id number] EXAMINATION: - CT HEAD/BRAIN W/O CONT COMPARISON: [...] including one or more of the following: ?Automated exposure control ?Adjustment of the mA and/or kV according to patient size ?Use of iterative reconstruction technique FINDINGS: There are no acute intracranial abnormalities. Specifically, there is no evidence of hemorrhage, hydrocephalus, midline shift, extra-axial collection or space-occupying lesion. The ventricles and sulci are appropriate in size and configuration for the age of the patient. The posterior fossa structures are normal in appearance. The bony calvarium is intact. Orbits and globes are unremarkable. No significant paranasal sinus mucosal disease is identified. Vascular structures are grossly normal IMPRESSION: No acute intracranial abnormality at 1137 Reported and signed by: Gladis Andrew MD CC: Vladimir Forbes MD; Jim Jaimes MD Dictated Date/Time: 09/14/2022 (1137) Technologist: ASUNCION CASTELLANO CTDI: DLP: Trnscrpt: 09/14/2022 (1137) t.SDR.[email or web address] [facility] NAME: BHUMIKA JONES [facility] PHYS: Vladimir Menchaca MD [address] [place] [address] BLVD : 1975 AGE: 47 SEX: F [place] [address] LOC: NEHA Cintron PHONE #: [phone] EXAM DATE: 09/14/2022 STATUS: ADM IN FAX #: [phone] RAD #: D/C DT PAGE 1 Signed Report Patient Name: BHUMIKA JONES Unit No: [id number] EXAMS: CPT CODE: [id number] CT HEAD/BRAIN W/O CONT 96212 (Continued) Orig Print D/T: S: 09/14/2022 (1140) DENIZ Lugo NAME: BHUMIKA JONES [facility] PHYS: Vladimir Menchaca MD [address] : 1975 AGE: 47 SEX: F [place], [place] [address] LOC: ENHA 10PHONE #: [phone] EXAM DATE: 09/14/2022 STATUS: ADM IN FAX #: [phone] RAD #: D/C DT PAGE 2 Signed ReportPT AND PTT 2022-09-14 06:51:00 Test Item Value Reference Interpretation Comments [...] prevention in p rosthetic heart 3.0-5.4 A LA mortality reduc tion THROMBOPLASTIN TIME 34.6 SECONDS 24-37.7 N THERAPEU TIC RANGE FOR PARTIAL (test code UNFRACTIO NATED HEPARIN = = PTT) 50.5-83.6 SEC T his test is not recommen ded to monitor low molecularweight heparin or danaparoid. Order LMWH test COLLECTION THROUGH LINES THAT HAVE BEEN PREVIOUSLY FLUS HEDWITH HEPARIN SHOULD BE AVOIDED DUE TO POSSIBLE HEPARINCONTAMIN ATION HCG SERUM [id number] 06:51:00 Test Item Value Reference Range Interpretation [...] (test code = MG Index/DL The system ic HEMINDEX) generated this result transmitted ref erence [...] 268 Unit/L 26-192 H CK) CBC W/AUTO [id number] 03:43:00 Test Item Value Reference Range Interpretation [...] = 0.00 K/mm3 0.0-0.05 N NRBC#) URINALYSIS [id number] 03:41:00 Test Item Value Reference Range Interpretation [...] /LPF NONE MUCU) - XR CHEST 2 [id number] 02:06:00 [facility] : 1975 Sex: F FAX: Suleman Carvalho [phone] [place]: E St: REG Patient Name: BHUMIKA JONES Unit No: [id number] EXAMS: CPT CODE:[id number] XR CHEST 2 V 96464 EXAM: - XR CHEST 2 V HISTORY: Chest pain. COMPARISON: None available time of interpretation. FINDINGS: PA and lateral view of the chest is provided. Heart size and vasculari ty are within normal limits. There is no evidence of a focal consolidation. There is no pleural effusion or pneumothorax. There is no definite acute osseous abnormality. IMPRESSION: No radiographic evidence of acute cardiopulmonary process. at 0206 Reported and signed by: Igor Almonte MD CC: Suleman Carvalho Dictated Date/Time: 09/14/2022 (0206)Technologist: SULEMAN JACQUES (R) Transcribed Date/Time: 09/14/2022 (205)By: [email or web address] Orig Print D/T: S: 09/14/2022 (208) DENIZ Lugo NAME: ROBERT[address] PHYS: Suleman [place], [place] [address] : 1975 AGE: 47 SEX: F LOC: B.ERS PHONE #: [phone] EXAM DATE: 09/14/2022 STATUS: REG ER FAX #: [phone] RAD NO: DC Dt: PAGE 1 Signed Report COMPREHENSIVE METABOLIC [id number] 12:49:00 Test Item Value Reference Range Interpretation [...] (test code = MG Index/DL The system [employer]) generated this result transmitted ref erence range: [...] int erpret this result as normal/abnormal . [id number] 12:49:00 Test Item Value Reference Range Interpretation Comments MAGNESIUM (test code = MAG) 1.7 MG/DL 1.6-2.6 N CBC W/AUTO [id number] 12:36:00 Test Item Value Reference Range Interpretation [...] N NRBC#) PENDING RECEIPT OF SPECIMEN PER B.LAB.KT AT 09/13/22 1143URINALYSIS COMPLETE 2022-09-13 12:22:00 Test [...] /LPF NONE MUCU) DRUGS OF ABUSE SCREEN [id number] 00:33:00 Test Item Value Reference Range Interpretation [...] 300 ng/mL UA RFLX MICR CULT IF [id number] 00:30:00 Test Item Value Reference Range Interpretation [...] DIPSTICK (test NEGATIVE Michael/micL NEGATIVE code = LUZ) UA PH DIPSTICK (test code = 6.0 [...] culture: Suprapubic PainSpecimen Description: CLEAN CATCHBASIC METABOLIC [id number] 00:18:00 Test Item Value Reference Range Interpretation [...] the recommended for randall for GFRby the [facility] on for Adults.The GFR will not calculate if th e sex is unknown or if thepatient's ag e is <18 years. CREATININE (test 0.55 mg/dL 0.60-1.30 L code = CREAT) CALCIUM (test code 8.9 mg/dl 8.0-10.5 N = CA) HEPATIC FUNCTION PANEL [id number] 00:18:00 Test Item Value Reference Range Interpretation [...] 50.0-136.0 N code = ALKP) HCG SERUM [id number] 00:18:00 Test Item Value Reference Range Interpretation Comments HCG SERUM QUAL (test code = HCGQL) NEGATIVE NEGATIVE [id number] 00:18:00 Test Item Value Reference Range Interpretation Comments ALCOHOL (test code 0.00 gm/dL 0.00-0.00 N ETHYL ALC OHOL VALUES - = ALC) INTERPRETATION: 0.050 GM/DL - NOT INT OXICATED 0.100 GM/DL - INTOXICATED 0.3 50-0.450 GM/DL - SEVEREL Y INTOXICATED 0.5 50 GM/DL- FATAL INTOXICAT ION Coronavirus 2019 nCoV [id number] 00:09:00 Test Item Value Reference Range Interpretation Comments Coronavirus 2019 Negative NEGATIVE Negative re sults should be nCoV Bedside (test treated a s presumptive and code = ifinconsistent with [id number]) clinical signs and symptoms, or ne cessaryfor patient managem ent, should be tested with an alternativemole cular assay. Negative result s do not preclude OVDU-UwT-5dtqtm tion and should not be u sed as the sole basis forp atient management deci sions. Negative result s should beconsidered in the context of a patient's recent exposures,histo ry, presence of clinical sig ns and symptoms consis tentwith COVID-19. CBC W/AUTO [id number] 23:58:00 Test Item Value Reference Range Interpretation [...] 3uL 0.00-0.01 N NRBC#) COMP. METABOLIC PANEL (12361)2022-09-07 02:12:41 Test Item Value Reference Range Interpretation Comments NA (test code = 133 mmol/L 135-145 L 3207993100) K (test code = 4.4 mmol/L 3.5-5.0 7091246847) CL (test code = 102 mmol/L 98-108 0792121423) CO2 TOTAL (test code = 25 mmol/L 23-31 0785949555) AGAP (test code = 6 2-16 8761570754) BUN (test code = 22 mg/dL 7-23 0884522463) GLUCOSE (test code = 97 mg/dL 70-110 3820741192) CREATININE (test code = 0.40 mg/dL 0.50-1.04 L 4170234033) TOTAL BILI (test code = 0.3 mg/dL 0.1-1.1 8780187806) CALCIUM (test code = 8.9 mg/dL 8.6-10.6 5708990130) T PROTEIN (test code = 7.7 g/dL 6.3-8.2 4227036524) ALBUMIN (test code = 4.0 g/dL 3.5-5.0 5921421801) ALK PHOS (test code = 104 U/L 34-122 2545315945) ALTv (test code = 15 U/L 5-35 1742-6) AST(SGOT) (test code = 22 U/L 13-40 6925051896) eGFR (test code = 170.4 mL/min/1.73m2 0667412058) HANNAH (test code = HANNAH) Association of [...] tests). Lab Interpretation Abnormal (test code = 52982-1) [facility] WITH [id number] 02:01:20 Test Item Value Reference Range Interpretation Comments WBC (test code = 6.17 See_Comment [Automated 7540-2) message] The sy stem which generated this result transmitted reference range : 4.30 - 11.10 10*3/?L. The reference range was not used to interpret this result as normal/abnormal . RBC (test code = 3.73 See_Comment L [Automated 953-6) message] The sy stem which generated this [...] RDW-SD (test code = 48.1 fL 39.0-49.9 51604-3) RDW-CV (test code = 14.7 % 12.0-15.5 788-0) PLT (test code = 272 See_Comment [Automated 777-3) message] The sy stem which generated this result transmitted reference range : 166 - 358 10*3/ ?L. The reference r kobi was not used to interpret this result as normal/abnormal . MPV (test code = 9.6 fL 9.5-12.9 47619-4) NRBC/100 WBC (test 0.0 See_Comment [Automat ed code = [id number]) message] The system which generated this result transmitted reference range : 0.0 - 10.0 /100 WBCs. The refer ence range was not u sed to interpret th is result as normal/abnormal . NRBC x10^3 (test code See_Comment [Auto mated = [id number]) message] The s ystem which generated this result transmitted reference range : 10*3/?L. The reference range was not used to interpret this result as normal/abnormal . GRAN MAT (NEUT) % 42.2 % (test code = 770-8) IMM GRAN % (test code 0.20 % = 9159063914) LYMPH % (test code = 38.2 % 736-9) MONO % (test code = 12.6 % 5905-5) EOS % (test code = 5.8 % 713-8) BASO % (test code = 1.0 % 706-2) GRAN MAT x10^3(ANC) 2.60 10*3/uL 1.88-7.09 (test code = 7382499589) IMM GRAN x10^3 (test 0.00-0.06 code = 9047416324) LYMPH x10^3 (test code 2.36 10*3/uL 1.32-3.29 = 731-0) MONO x10^3 (test code 0.78 10*3/uL 0.33-0.92 = 742-7) EOS x10^3 (test code = 0.36 10*3/uL 0.03-0.39 711-2) BASO x10^3 (test code 0.06 10*3/uL 0.01-0.07 = 704-7) Lab Interpretation Abnormal (test code = 67096-0) [facility] (HIGH RISK) 2020-08-19 00:00:00 Test Item Value Reference Range Interpretation Comments SARS-CoV-2 INTERPRETATION (test NEGATIVE code = 60361) SOURCE (test code = 25732) NOT SPECIFIED SARS-CoV-2 (COVID-19) by RT-PCR (HIGH RISK)2020-08-19 00:00:00 Test Item Value Reference Range Interpretation Comments SARS-CoV-2 INTERPRETATION (test NEGATIVE code = 70521) SOURCE (test code = 07078) NOT SPECIFIED PAP TEST, THINPREP, [id number] 00:00:00 Test Item Value Reference Range Interpretation Comments SOURCE: (test code = Cervical/Endocervical 8001) SLIDES: (test code = 1 8011) LMP: (test code = 8021) 06/2017 SPECIMEN ADEQUACY: (test (NOTE) code = 66738) INTERPRETATION: (test NILM/NO EPITH. code = 51635) ABNORMALITY;SEE BELOW NEONATAL SPECIALIST: (test Malek code = 8101) KANA Wen(ASCP) IAC LOCATION: (test code = (NOTE) 26135) CPT: (test code = 8140) (NOTE) PAP TEST, THINPREP, [id number] 00:00:00 Test Item Value Reference Range Interpretation Comments SOURCE: (test code = Cervical/Endocervical 8001) SLIDES: (test code = 1 8011) LMP: (test code = 8021) 06/2017 SPECIMEN ADEQUACY: (test (NOTE) code = 15752) INTERPRETATION: (test NILM/NO EPITH. code = 99880) ABNORMALITY;SEE BELOW NEONATAL SPECIALIST: (test Malek code = 8101) KANA Wen(ASCP) IAC LOCATION: (test code = (NOTE) 68784) CPT: (test code = 8140) (NOTE) HPV HIGH RISK WITH GENOTYPE, [id number] 00:00:00 Test Item Value Reference Range Interpretation Comments HPV HIGH RISK INTERP (test code = NEGATIVE 23621) HPV 16 (test code = 87466) NEGATIVE HPV 18 (test code = 37216) NEGATIVE HPV, HR, OTHER GENOTYPES (test code NEGATIVE = 05962) HPV HIGH RISK WITH GENOTYPE, [id number] 00:00:00 Test Item Value Reference Range Interpretation Comments HPV HIGH RISK INTERP (test code = NEGATIVE 15955) HPV 16 (test code = 91208) NEGATIVE HPV 18 (test code = 42171) NEGATIVE HPV, HR, OTHER GENOTYPES (test code NEGATIVE = 60130) CT HEAD WO [id number] 22:34:12Impression: 1. ?No acute intracranial process. 2. [...] the patient. Please correlate with history and physicalexamination.[facility] 2 [id number] 22:29:40 No acute osseous abnormality. Preliminary Report [...] reviewed this study and agree with theabove report.[facility] WITH [id number] 21:46:00 Test Item Value Reference Range Interpretation Comments WBC (test code = See_Comment [Automated 6690-2) message] The sy stem which generated this result transmitted reference range : 4.30 - 11.10 10*3/?L. The reference range was not used to interpret this result as normal/abnormal . RBC (test code = See_Comment L [Automated 789-8) message] The sy stem which generated this [...] RDW-SD (test code = 45.1 fL 39-49.9 02184-6) RDW-CV (test code = 14.6 % 12-15.5 788-0) PLT (test code = See_Comment L [Automated 777-3) message] The sy stem which generated this result transmitted reference range : 166 - 358 10*3/ ?L. The reference r kobi was not used to interpret this result as normal/abnormal . MPV (test code = 9.0 fL 9.5-12.9 L 08296-6) NRBC/100 WBC (test See_Comment [Automat ed code = 0272338973) message] The system which generated this result transmitted reference range : 0.0 - 10.0 /100 WBCs. The refer ence range was not u sed to interpret th is result as normal/abnormal . NRBC x10^3 (test code <0.01 See_Comment [Auto mated = 4559291568) message] The s ystem which generated this result transmitted reference range : 10*3/?L. The reference range was not used to interpret this result as normal/abnormal . GRAN MAT (NEUT) % 51.3 % (test code = 770-8) IMM GRAN % (test code 0.40 % = 5451417956) LYMPH % (test code = 24.4 % 736-9) MONO % (test code = 23.1 % 5905-5) EOS % (test code = 0.4 % 713-8) BASO % (test code = 0.4 % 706-2) GRAN MAT x10^3(ANC) 2.48 10*3/uL 1.88-7.09 (test code = 9380027973) IMM GRAN x10^3 (test <0.03 0-0.06 code = 5732433167) LYMPH x10^3 (test code 1.18 10*3/uL 1.32-3.29 L = 731-0) MONO x10^3 (test code 1.12 10*3/uL 0.33-0.92 H = 742-7) EOS x10^3 (test code = <0.03 0.03-0.39 L 711-2) BASO x10^3 (test code <0.03 0.01-0.07 = 704-7) Lab Interpretation Abnormal (test code = 66450-0) [facility] [id number] 03:28:03 No acute osseous abnormality. Preliminary Report [...] this study and agree withthe above report. [facility] CenterValproic Acid [id number] 08:03:22 Test Item Value Reference Range Interpretation Comments Valproic Acid Level (test code 57.6 ug/mL(g) 50.0-100.0 = Valproic Acid Level) Hemoglobin [id number] 09:36:00 Test Item Value Reference Range Interpretation Comments Hemoglobin A1c (test code 5.0 % 4.8-5.9 No n Diabetic = Hemoglobin A1c) 4.8-5.9%Di abetic <7.0% CT Shoulder w/o Contrast [id number] 16:49:13Patient: BHUMIKA JONES Date/Time01/09/2019 16:14 CDTReason for [...] Adam FSigned (Electronic Signature): 01/09/2019 4:49 pmRPR [id number] 21:33:20 Test Item Value Reference Range Interpretation [...] Expiration Dt) XR Shoulder Complete 2+ Views [id number] 15:41:25Patient: BHUMIKA JONES Date/Time01/07/2019 15:25 CDTReason for [...] rotator cuff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 Medications DIVALPROEX ER (DEPAKOTE ER) 1,000 MG PO DAILY risperiDONE (RisperDAL) 3 MG PO DAILY carBAMazepine (TEGretol) 400 MG PO Q12H Active Meds + DC'd Last 24 Hrs Aspirin (ASPIRIN) 81 MG DAILY PO Divalproex Sodium (DEPAKOTE ER "INTERIANO" (NF)) 1,00 0 MG DAILY PO (CAN) Enoxaparin Sodium (LOVENOX) 30 MG Q12H SUBQ Levetiracetam (KEPPRA IV) 750 MG Q12HR IV (CAN) Sodium Chloride (SODIUM CHLORIDE 0.9%) 92.5 ML Levetiracetam (KEPPRA IV) 750 MG Q12HR IV (DC) Risperidone (RisperDAL) 3 MG DAILY PO (CAN) Atorvastatin Calcium (LIPITOR) 40 MG BEDTIME PO Acetaminophen (TYLENOL) 650 MG Q6H PRN PRN RECTA L Carbamazepine (TEGretol) 400 MG Q12H PO (CAN) Docusate Sodium (COLACE 100 MG CAP) 100 MG BID P RN PRN PO Lactated Ringer's (LACTATED RINGERS) 1,000 ML .Q 20H IV Lorazepam (ATIVAN) 1 MG Q6H PRN PRN IV Sodium Chloride (NORMAL SALINE 250 ML) 250 ML CAL DERRICK PRN IV Haloperidol Lactate (HALDOL) 2.5 MG X1ED STA IV (DC) Levetiracetam (Keppra 1000mg/100 ml) 100 ML X1ED STA IV (DC) Provider comments: Exam: Flat affect. Oriented to self, place, and time. Mainly stated interested in going home to her family and she wants to eat pe anuts and eat good food Visual field full bilateral without negl ect. No gaze preference. No aphasia or dysarthria. PERRL, EOMI, no facial droop. Tongue midline. No head tenderness to palpation Moving all limbs purposefully 5/5 without drift. Tone within normal. Some positional tremor seen resolved with distraction . Sensation intact to light touch, temperature and pinprick bilateral without neglect No nystagmus. No dysmetria all limbs. No tachypnea, with irregular heartbeat. Abdomen soft and nontender. No musculoskeletal discomfort to limb movement pass sanjuana or active No rash seen on skin or arms Results Findings/Data: Laboratory Tests 09/18 09/18 09/18 09/18 1400 1359 1358 1126 Chemistry Sodium (133 - 144 mmol/L) 127.0 L Potassium (3.5 - 5.1 mmol/L) 4.0 Chloride (95 - 105 mmol/L) 95 Carbon Dioxide (21 - 32 mmol/L) 27 Anion Gap (4.0 - 15.0 GAP calc) 5.0 BUN (7 - 18 MG/DL) 9 Creatinine (0.55 - 1.30 MG/DL) 0.52 L Glomerular Filtr Rate (>60 estGFR) 115 Glucose (70 - 110 MG/DL) 98 POC Glucose (70 - 119 MG/DL) 88 Calcium (8.5 - 10.1 MG/DL) 9.4 Ammonia (11.0 - 32.0 mcMOL/L) 29.0 Total Creatine Kinase (26 - 192 Unit/L) 145 Specimen Appearance (1 NORMAL Index/DL) 1 KASSIDY L <2 MG Specimen Hemolysis (1 NORMAL Index/DL) 1 NORMAL <10 MG 09/18 09/18 09/17 09/17 0553 0540 9533 1510 Chemistry Hemoglobin A1c (4.5 - 5.6 % IS-A1C) 5.2 Estim Average Glucose (MG/DLest) 103 Lactic Acid (0.4 - 2.0 mmol/L) 1.0 Troponin I High Sens (0 - 45 ng/L) 8 Triglycerides (0 - 150 MG/DL) 83 Cholesterol (133 - 200 MG/DL) 163 LDL Cholesterol Measurd (0 - 129 MG/DL) 71 Non-HDL Cholesterol (<130 mg/dL) 88 HDL Cholesterol (40 - 59 MG/DL) 75 H LDL/HDL Ratio (1.48 - 3.22 Avg Ratio) 0.94 L Cholesterol/HDL Ratio (0 RATIO) 2.17 Specimen Appearance (1 NORMAL Index/DL) 1 KASSIDY L <2 MG Specimen Hemolysis (1 NORMAL Index/DL) 1 NORMAL <10 MG 09/17 09/17 1519 1518 Chemistry Sodium (133 - 144 mmol/L) 125.0 L Potassium (3.5 - 5.1 mmol/L) 4.7 Chloride (95 - 105 mmol/L) 98 Carbon Dioxide (21 - 32 mmol/L) 22 Anion Gap (4.0 - 15.0 GAP calc) 5.0 BUN (7 - 18 MG/DL) 8 Creatinine (0.55 - 1.30 MG/DL) 0.51 L Glomerular Filtr Rate (>60 estGFR) 115 Glucose (70 - 110 MG/DL) 96 Calcium (8.5 - 10.1 MG/DL) 9.7 Total Bilirubin (0.00 - 1.00 MG/DL) 0.29 Direct Bilirubin (0.00 - 0.30 MG/DL) < 0.10 Indirect Bilirubin (0.2 - 1.3 MG/DL) CALC JAZMÍN L AST (15 - 37 Unit/L) 22 ALT (12 - 78 Unit/L) 14 Total Alk Phosphatase (45 - 117 Unit/L) 67 Total Creatine Kinase (26 - 192 Unit/L) 92 Total Protein (6.4 - 8.2 G/DL) 7.6 Albumin (3.4 - 5.0 G/DL) 3.0 L Lipase (114 - 286 Unit/L) 57 L Serum , Qual (NEG SCREEN) Negative Specimen Appearance (1 NORMAL Index/DL) 1 KASSIDY L <2 MG Specimen Hemolysis (1 NORMAL Index/DL) 4 SMALL 50-200 MG H Laboratory Tests 09/17 1933 Hematology WBC (4.1 - 12.1 K/mm3) 4.5 RBC (3.8 - 5.5 M/mm3) 3.84 Hgb (10.6 - 15.8 G/DL) 11.3 Hct (31.8 - 47.4 %) 33.6 MCV (80.1 - 101.1 fL) 87.5 MCH (25.3 - 35.3 pg) 29.4 MCHC (32.7 - 35.1 G/DL) 33.6 RDW (12.2 - 16.4 %) 14.2 Plt Count (155 - 337 K/mm3) 177 MPV (6.8 - 11.2 fL) 9.5 Laboratory Tests 09/18 09/17 1400 1519 Toxicology Urine Opiates Screen (<300 NG/ML SCcutoff) NONE DETECTED (NEG) Urine Barbiturates (<200 NG/ML SCcutoff) NONE D ETECTED (NEG) Valproic Acid (50.0 - 100.0 mcG/ML) 37.5 L Ur Phencyclidine Scrn (<25 NG/ML SCcutoff) NONE DETECTED (NEG) Ur Amphetamines Screen (<1000 NG/ML SCcutoff) N ONE DETECTED (NEG) U Benzodiazepines Scrn (<200 NG/ML SCcutoff) PO SITIVE H Urine Cocaine Screen (<300 NG/ML SCcutoff) NONE DETECTED (NEG) Urine Cannabinoids (<50 NG/ML SCcutoff) NONE DE TECTED (NEG) Laboratory Tests 09/17 09/17 1519 1519 Urines Urine Color (YELLOW DESCRIPT) LIGHT-YELLOW Urine Appearance (CLEAR DESCRIPT) CLEAR Urine pH (4.6 - 8.0 pH UNITS) 6.5 Ur Specific [place] (1.001 - 1.035 SG) 1.013 Urine Protein (<30 (1+) mg/dL) NEGATIVE (0) Urine Glucose (UA) (0 (NORMAL) mg/dL) NORMAL (0 ) Urine Ketones ((NEG) 0 mg/dL) TRACE Urine Blood (0 (NEG) mg/dL) NEGATIVE (0.00) Urine Nitrite (NEG SCREEN) NEGATIVE (0) Urine Bilirubin ((NEG) 0 mg/dL) NEGATIVE (0.0) Urine Urobilinogen (<2.0 (1+) mg/Dl) NORMAL (0 ) Ur Leukocyte Esterase ((NEG) 0 Leuk/mcL) NEGATI VE (0) Urine RBC (0 - 3 #RBC/HPF) 0-3 Urine WBC (0 - 3 #WBC/HPF) 0-3 Ur Squamous Epith Cells (NONE - SQepi /UL) RARE >0 Urine Osmolality (100 - 1400 mOsm/kg) 475 Ur Random Sodium (40 - 200 mmol/L) 93 Ur Random Potassium (25 - 125 mmol/L) 54.8 Ur Random Chloride (110 - 150 mmol/L) 164 H Radiology Data: Recent Impressions: CAT SCAN - CT HEAD/BRAIN W/O CONT 09/17 1834 Report Impression - Status: SIGNED Entered: 09/17/2022 1902 IMPRESSION: Unremarkable CT examination of the b rain without contrast. No significant change from the exam acquired ea oziel today. Impression By: Leonardo - Nati padilla M.D. Diagnosis, Assessment Plan Time spent: Time spent on patient care (minutes): 110 >50% spent on counseling/coordination of care: yes Free Text DxA P Notes Free text DxA P notes: Reported encephalopathy could be due to hyponatremia in the setting of restart Tegretol resolved History of schizophrenia on Depakote and carbama zepine Recent onset of seizure-like activity with event occurred during EEG appear nonepileptic -Event occurred during the EEG with patient stop ped responding with mouth tremulous and hand tremulous movement. This even t lasted for less than 1 minute. During the event open the eye manually a nd the patient would avoid to look at the examiner. Patien t then woken up and stated she wants to go home and start crying. She stated this is how she passed out at home as well when she feels anxious. During the EEG there is no epilep tiform discharge detected and during the event there is no epileptiform discharges detected. Mildly review of the telemetry leads of that event but from EEG s tandpoint no epileptiform discharges detected an episo de would be considered nonepileptic/psychogenic. No clear report of the activity that the patient lee s as an outpatient with the patient only stated this is similar to her usual event where she would pass out Keppra would not be helpful and will discontinue and was not on it before. Tegretol level pending. Depakote level obtained and can restart. Regarding Tegretol can either restart as a low-dos e 200 every 12 hours and then increase after 1 to 2 weeks to 400 ev michael 12 hours with close monitoring of her sodium or she might need psychiatry consult to adjust her psych meds. Please call with questions o r updates regarding patient. unless relevant update to patient hx, no w/up from my end currently is needed. Electronically Signed by Nelia Parker MD on 3 at 1509 Addendum 1: 09/18/22 1651 by Nelia Parker MD waiting on family member to confirm or give othe r parts of the history that might be helpful for her con dition and whether had prior seizures in the past or not. Electronically Signed by Nelia Parker MD on 3 at 1652 RPT #:[id number] END OF REPORT 2022-09-18 11:44:00-00:00 [facility] Hospitalist Progress Note REPORT#:[id number] REPORT STATUS: Signed DATE:09/18/22 TIME: 1144 PATIENT: BHUMIKA JONES UNIT #: [id number] ROOM/BED: [place] [address] : [birth year] AGE: 47 SEX: F ATTEND: Marly Mendenhall MD ADM AUTHOR: Marly Mendenhall MD * ALL edits or amendments must be made on the Sientra/computer document * Subjective Chief complaint: Altered mental status HPI: This is a 47-year-old female with past medical history of schizophrenia seizure disorder she was brought into the ER because of altered mental status she had decreased responsiveness from her the patient th is morning with the help of matcher operator and she said that he lives with her mom in the house and she was bleeding from the mouth that is why she came to ER she was able to tell me her full name and birthday she s ays that she is not sure why she is here her affect was flat and monotonous tone currently does not seem to be completely altered but does have history of psy ch disorder schizophrenia so seems to be presenting with that Review of Systems All systems rev neg: except as noted Objective General VS/I O: Vital Signs: Date Time Temp Pulse Resp B/P B/P Pulse O2 O2 F low FiO2 Mean Ox Delivery Rate 09/18 1127 98.2 64 18 116/83 94.0 100 Room air 09/18 0915 98 Room air 21 09/18 0800 98.2 61 20 144/77 99 09/18 0342 63 132/84 100.2 100 09/18 0339 98.2 64 15 100 09/17 2030 70 16 145/90 108.5 99 09/17 2008 98.2 71 15 99 09/17 1944 100 09/17 1930 66 19 134/74 94 100 Room air 09/17 1830 64 19 124/78 93 100 Room air 09/17 1730 73 17 135/74 94 100 Room air 09/17 1530 61 19 120/78 92 100 Room air 09/17 1431 97.9 64 18 117/84 95 100 Room air 24 hour I O ending at 0700: 09/18 0700 09/17 1900 Intake Total 150 Output Total Balance 150 Intake, Oral 150 Number Voids 1 Patient 72 kg Weight Weight Estimated Measurement Method PATIENT WEIGHT: Weight (lb): Weight (oz): Weight (kg): 72.000 Physical Exam General appearance: alert, awake Cardiovascular: regular rate rhythm Respiratory: decreased breath sounds Abdomen: soft Extremities: moves all, normal capillary refill, normal range of motion, no edema Neuro/SOFTWARE ENGINEER MOBILE: altered mental status, alert Diagnosis, Assessment Plan Free Text DxA P Notes Free text DxA P notes: Hyponatremia asymptomatic Recheck Do a work-up Continue Ringer lactate 50 cc/h monitor electrol ytes Metabolic encephalopathy questionable patient se ems to be at baseline. With history of schizophrenia Neuro consult Treat underlying condition Schizophrenia Continue home medication once confirmed Seizure disorder Continue home medication Seizure precaution DVT prophylaxis Lovenox Advanced directive discussed Medication reviewed and reconciled Further pending hospital cou rse currently on one-to-one sitter can be DC'd later this afternoon if remains stable Electronically Signed by Marly Mendenhall MD on at 1147 RPT #:[id number] END OF REPORT 2022-09-18 01:06:00-00:00 [facility] ([facility]) Hospitalist History Physical REPORT#:[id number] REPORT STATUS: Signed DATE:09/18/22 TIME: 0106 PATIENT: BHUMIKA JONES UNIT #: [id number] ROOM/BED: [place] [address] : 74 AGE: 47 SEX: F ATTEND: Marshall Orellana MD ADM AUTHOR: Nelia Moffett MD * ALL edits or amendments must be made on the el [employer]/computer document * History of Present Illness HPI Chief complaint: Altered mental status PCP: PCP: No Primary or Family Physician HPI: This is a 47-year-old female with past medical history of schizophrenia seizure disorder she was brought into the ER because of altered mental status she had decreased responsiveness fro m her baseline patient not a good historian I tried to elicit some history from the patient while tr marilou so history is mostly from staff and from the chart no history of nausea vomiting diarrhea abdominal pain hematemesis melena blood in stool History Past Medical Surgical Hx Patient History: 1. Psychosis 2. Seizure-like activity 3. Nonadherence to medication 4. UTI (urinary tract infection) 5. Seizure disorder 6. Anxiety 7. Homeless 8. History of seizures Additional medical history: Schizophrenia seizure disorder Additional surgical history: Noncontributory Family History Additional family history: Unable to obtain Social History Drug use: Denies recreational drugs Smoking status for patients 13 years old or olde r: Never Smoker Other social history: Homeless Medication/Allergy-Vaccine Hx Medications: Laboratory Tests: 09/17 09/17 09/17 1934 1850 1519 Chemistry Lactic Acid (0.4 - 2.0 mmol/L) 1.0 Troponin I High Sens (0 - 45 ng/L) 8 Hematology WBC (4.1 - 12.1 K/mm3) 4.5 RBC (3.8 - 5.5 M/mm3) 3.84 Hgb (10.6 - 15.8 G/DL) 11.3 Hct (31.8 - 47.4 %) 33.6 MCV (80.1 - 101.1 fL) 87.5 MCH (25.3 - 35.3 pg) 29.4 MCHC (32.7 - 35.1 G/DL) 33.6 RDW (12.2 - 16.4 %) 14.2 Plt Count (155 - 337 K/mm3) 177 MPV (6.8 - 11.2 fL) 9.5 Urines Urine Osmolality (100 - 1400 mOsm/kg) 475 Ur Random Sodium (40 - 200 mmol/L) 93 Ur Random Potassium (25 - 125 mmol/L) 54.8 Ur Random Chloride (110 - 150 mmol/L) 164 H 09/17 1519 Chemistry Sodium (133 - 144 mmol/L) 125.0 L Potassium (3.5 - 5.1 mmol/L) 4.7 Chloride (95 - 105 mmol/L) 98 Carbon Dioxide (21 - 32 mmol/L) 22 Anion Gap (4.0 - 15.0 GAP calc) 5.0 BUN (7 - 18 MG/DL) 8 Creatinine (0.55 - 1.30 MG/DL) 0.51 L Glomerular Filtr Rate (>60 estGFR) 115 Glucose (70 - 110 MG/DL) 96 Calcium (8.5 - 10.1 MG/DL) 9.7 Total Bilirubin (0.00 - 1.00 MG/DL) 0.29 Direct Bilirubin (0.00 - 0.30 MG/DL) < 0.10 Indirect Bilirubin (0.2 - 1.3 MG/DL) CALC JAZMÍN L AST (15 - 37 Unit/L) 22 ALT (12 - 78 Unit/L) 14 Total Alk Phosphatase (45 - 117 Unit/L) 67 Total Creatine Kinase (26 - 192 Unit/L) 92 Total Protein (6.4 - 8.2 G/DL) 7.6 Albumin (3.4 - 5.0 G/DL) 3.0 L Lipase (114 - 286 Unit/L) 57 L Specimen Appearance (1 NORMAL Index/DL) 1 KASSIDY L <2 MG Specimen Hemolysis (1 NORMAL Index/DL) 4 SMALL 50-200 MG H Toxicology Urine Opiates Screen (<300 NG/ML SCcutoff) NONE DETECTED (NEG) Urine Barbiturates (<200 NG/ML SCcutoff) NONE D ETECTED (NEG) Ur Phencyclidine Scrn (<25 NG/ML SCcutoff) NONE DETECTED (NEG) Ur Amphetamines Screen (<1000 NG/ML SCcutoff) N ONE DETECTED (NEG) U Benzodiazepines Scrn (<200 NG/ML SCcutoff) PO SITIVE H Urine Cocaine Screen (<300 NG/ML SCcutoff) NON E DETECTED (NEG) Urine Cannabinoids (<50 NG/ML SCcutoff) NONE DE TECTED (NEG) Urines Urine Color (YELLOW DESCRIPT) LIGHT-YELLOW Urine Appearance (CLEAR DESCRIPT) CLEAR Urine pH (4.6 - 8.0 pH UNITS) 6.5 Ur Specific [place] (1.001 - 1.035 SG) 1.013 Urine Protein (<30 (1+) mg/dL) NEGATIVE (0) Urine Glucose (UA) (0 (NORMAL) mg/dL) NORMAL (0 ) Urine Ketones ((NEG) 0 mg/dL) TRACE Urine Blood (0 (NEG) mg/dL) NEGATIVE (0.00) Urine Nitrite (NEG SCREEN) NEGATIVE (0) Urine Bilirubin ((NEG) 0 mg/dL) NEGATIVE (0.0) Urine Urobilinogen (<2.0 (1+) mg/Dl) NORMAL (0) Ur Leukocyte Esterase ((NEG) 0 Leuk/mcL) NEGATI VE (0) Urine RBC (0 - 3 #RBC/HPF) 0-3 Urine WBC (0 - 3 #WBC/HPF) 0-3 Ur Squamous Epith Cells (NONE - SQepi /UL) RAR E >0 09/17 1518 Chemistry Serum , Qual (NEG SCREEN) Negative Microbiology: Date/Time Procedure - Status Source Growth 09/17 2157 MRSA Screen - RECD NASAL Recent Impressions: CAT SCAN - CT HEAD/BRAIN W/O CONT 09/17 1835 Report Impression - Status: SIGNED Entered: 09/17/2022 1902 IMPRESSION: Unremarkable CT examination of the b rain without contrast. No significant change from the exam acquired ea oziel today. Impression By: Leonardo - Nati padilla M.D. Microbiology: 09/17 2157 NASAL: MRSA Screen - RECD Active Meds + DC'd Last 24 Hrs Aspirin (ASPIRIN) 81 MG DAILY PO Divalproex Sodium (DEPAKOTE ER "INTERIANO" (NF)) 1,00 0 MG DAILY PO (CAN) Enoxaparin Sodium (LOVENOX) 30 MG Q12H SUBQ Risperidone (RisperDAL) 3 MG DAILY PO (CAN) Atorvastatin Calcium (LIPITOR) 40 MG BEDTIME PO Acetaminophen (TYLENOL) 650 MG Q6H PRN PRN RECTA L Carbamazepine (TEGretol) 400 MG Q12H PO (CAN) Docusate Sodium (COLACE 100 MG CAP) 100 MG BID P RN PRN PO Lactated Ringer's (LACTATED RINGERS) 1,000 ML .Q 20H IV Lorazepam (ATIVAN) 1 MG Q6H PRN PRN IV Sodium Chloride (NORMAL SALINE 250 ML) 250 ML CAL DERRICK PRN IV Haloperidol Lactate (HALDOL) 2.5 MG X1ED STA IV (DC) Levetiracetam (Keppra 1000mg/100 ml) 100 ML X1ED STA IV (DC) Recent Impressions: CAT SCAN - CT HEAD/BRAIN W/O CONT 09/17 1834 Report Impression - Status: SIGNED Entered: 09/17/20221901 IMPRESSION: Unremarkable CT examination of the b rain without contrast. No significant change from the exam acquired ea oziel today. Impression By: Leonardo - Nati padilla M.D. 09/18 0700 09/17 2300 09/17 1500 Intake Total Output Total Balance Patient 72 kg Weight Weight Estimated Measurement Method Home Medications: DIVALPROEX ER (DEPAKOTE ER) 1,000 MG PO DAILY risperiDONE (RisperDAL) 3 MG PO DAILY carBAMazepine (TEGretol) 400 MG PO Q12H Allergies: Coded Allergies: No Known Allergies (09/13/22) Review of Systems Unable to obtain due to: Altered mental status OBJECTIVE VS/I O: Vital Signs Date Temp Pulse Resp B/P B/P Mean Pulse Ox FiO2 09/17 36.6-36.8 61-73 15-19 117-145/74-90 92-10 8.5 99-100 Last Documented: Result Date Time Pulse Ox 99 09/17 2029 B/P 145/90 09/17 2029 B/P Mean 108.5 09/17 2029 Pulse 70 09/17 2029 Resp 16 09/17 2030 Temp 36.8 09/17 2008 O2 Delivery Room air 09/17 1929 24 hour I O ending at 0700: 09/18 0709/17 1900 Intake Total Output Total Balance Patient 72 kg Weight Weight Estimated Measurement Method Patient Weight and BMI Weight (kg): 72.000 BMI: 26.4 General appearance: awake Cardiovascular: regular rate rhythm Respiratory: decreased breath sounds Abdomen: soft Neuro/SOFTWARE ENGINEER MOBILE: altered mental status, alert Diagnosis, Assessment Plan Free Text A P: Hyponatremia Do a work-up Continue Ringer lactate 50 cc/h monitor electrol ytes Metabolic encephalopathy Neuro watch Treat underlying condition Schizophrenia Continue home medication once confirmed Seizure disorder Continue home medication Seizure precaution DVT prophylaxis Lovenox Advanced directive discussed Medication reviewed and reconciled Before midnight I will sign off at 6 AM today further management by incoming thereafter Electronically Signed by Nelia Moffett MD on 3 at 0110 [facility] #:[id number] END OF REPORT 2022-09-17 14:34:00-00:00 [facility] ([facility]) EMERGENCY PROVIDER REPORT REPORT#:[id number] REPORT STATUS: Signed DATE:09/17/22 TIME: 1434 PATIENT: BHUMIKA JONES UNIT #: [id number] ROOM/BED: [place] [address] AGE: 47 SEX: F PCP PHYS: No Primary or Family P hysician SERVICE AUTHOR: Valentina Samayoa MD * ALL edits or amendments must be made on the el [employer]/computer document * HPI-General Illness Free Text HPI Notes Free Text HPI Notes 47-year-old female presents after possible seizu re episode at [facility], will assessment patient is n ot fully oriented, and cannot provide history of the events of today when asked multiple times. Addit ional history limited as the patient is tearful and not fully oriented. I spo ke to the patient's sister Lewis Chiang, phone #[phone] by phone, who reports the patient has been missing from home for 8 days. Reports when the p atient is medically cleared they can come get the patien t. Patient reportedly initially without medications at the [facility] PMH: Seizures, schizophrenia. General Initial Greet Date/Time 09/17/22 1432 Presentation Chief Complaint Altered mental status (possible seizure) Past Medical History - Adult Stated Complaint SEIZURE Allergies Coded Allergies: No Known Allergies (09/13/22) Home Medications Active Scripts carBAMazepine (TEGretol) 400 MG PO Q12H carBAMazepine (TEGretol) 400 MG PO Q12H #120 TA BS Prov: 09/13/22 Discontinued Scripts risperiDONE (RisperDAL) 3 MG PO BEDTIME risperiDONE (RisperDAL) 3 MG PO BEDTIME #30 TAB S Prov: 09/13/22 DC: 09/14/22 1500 entry level account representative correction DIVALPROEX (GINA CALLES) 1,000 MG PO DAILY DIVALPROEX DR TEOFILO CALLES) 1,000 MG PO DAILY # 60 TABS Prov: 09/13/22 DC: 09/14/22 1459 entry level account representative correction Reported Medications DIVALPROEX ER (DEPAKOTE ER) 1,000 MG PO DAILY risperiDONE (RisperDAL) 3 MG PO DAILY Past Medical History: Reports: Seizure disorder. Physical Exam Vital Signs Vital Signs First Documented: Result Date Time Pulse Ox 100 09/17 1431 B/P 117/84 09/17 1431 B/P Mean 95 09/17 1431 O2 Delivery Room air 09/17 143 Temp 97.9 09/17 143 Pulse 64 09/17 1431 Resp 18 09/17 143 Last Documented: Result Date Time Pulse Ox 100 09/17 1530 B/P 120/78 09/17 1530 B/P Mean 92 09/17 1530 O2 Delivery Room air 09/17 153 Pulse 61 09/17 1530 Resp 19 09/17 153 Temp 97.9 09/17 143 Review of Vital Signs Reviewed Free Text PE Notes Free Text PE Notes General/constitutional: Alert, mild distress Head: Normocephalic, grossly atraumatic Eyes: Normal conjunctiva, no periorbital swellin g or erythema Neck: Supple, no swelling or masses Ears/nose/throat: Moist mucous membranes, no fac ial swelling Respiratory: No respiratory distress, breath regan nds equal bilaterally, no wheezes, no rales, no rhonchi Cardiovascular: Normal rate, regular rhythm, no murmurs Abdomen/GI: Soft, nontender, no guarding Musculoskeletal: no gross deformity Skin: dry Neurologic: Appropriately alert, oriented x2, am bulatory without assistance Psychiatric: Anxious and tearful, redirectable, cooperative Interpretation Diagnostics Lab Results Interpretation Results Laboratory Tests 09/17/22 1519: [Embedded Image Not Available] Laboratory Tests: 09/17 09/17 1519 1519 Chemistry Sodium (133 - 144 mmol/L) 125.0 L Potassium (3.5 - 5.1 mmol/L) 4.7 Chloride (95 - 105 mmol/L) 98 Carbon Dioxide (21 - 32 mmol/L) 22 Anion Gap (4.0 - 15.0 GAP calc) 5.0 BUN (7 - 18 MG/DL) 8 Creatinine (0.55 - 1.30 MG/DL) 0.51 L Glomerular Filtr Rate (>60 estGFR) 115 Glucose (70 - 110 MG/DL) 96 Calcium (8.5 - 10.1 MG/DL) 9.7 Total Bilirubin (0.00 - 1.00 MG/DL) 0.29 Direct Bilirubin (0.00 - 0.30 MG/DL) < 0.10 Indirect Bilirubin (0.2 - 1.3 MG/DL) CALC JAZMÍN L AST (15 - 37 Unit/L) 22 ALT (12 - 78 Unit/L) 14 Total Alk Phosphatase (45 - 117 Unit/L) 67 Total Creatine Kinase (26 - 192 Unit/L) 92 Troponin I High Sens (0 - 45 ng/L) 8 Total Protein (6.4 - 8.2 G/DL) 7.6 Albumin (3.4 - 5.0 G/DL) 3.0 L Lipase (114 - 286 Unit/L) 57 L Specimen Appearance (1 NORMAL Index/DL) 1 KASSIDY L <2 MG Specimen Hemolysis (1 NORMAL Index/DL) 4 SMALL 50-200 MG H Toxicology Urine Opiates Screen (<300 NG/ML SCcutoff) NON E DETECTED (NEG) Urine Barbiturates (<200 NG/ML SCcutoff) NONE D ETECTED (NEG) Ur Phencyclidine Scrn (<25 NG/ML SCcutoff) NONE DETECTED (NEG) Ur Amphetamines Screen (<1000 NG/ML SCcutoff) N ONE DETECTED (NEG) U Benzodiazepines Scrn (<200 NG/ML SCcutoff) PO SITIVE H Urine Cocaine Screen (<300 NG/ML SCcutoff) NONE DETECTED (NEG) Urine Cannabinoids (<50 NG/ML SCcutoff) NONE DE TECTED (NEG) Urines Urine Color (YELLOW DESCRIPT) LIGHT-YELLOW Urine Appearance (CLEAR DESCRIPT) CLEAR Urine pH (4.6 - 8.0 pH UNITS) 6.5 Ur Specific [place] (1.001 - 1.035 SG) 1.013 Urine Protein (<30 (1+) mg/dL) NEGATIVE (0) Urine Glucose (UA) (0 (NORMAL) mg/dL) NORMAL (0 ) Urine Ketones ((NEG) 0 mg/dL) TRACE Urine Blood (0 (NEG) mg/dL) NEGATIVE (0.00) Urine Nitrite (NEG SCREEN) NEGATIVE (0) Urine Bilirubin ((NEG) 0 mg/dL) NEGATIVE (0.0) Urine Urobilinogen (<2.0 (1+) mg/Dl) NORMAL (0) Ur Leukocyte Esterase ((NEG) 0 Leuk/mcL) NEGATI VE (0) Urine RBC (0 - 3 #RBC/HPF) 0-3 Urine WBC (0 - 3 #WBC/HPF) 0-3 Ur Squamous Epith Cells (NONE - SQepi /UL) RARE >0 Urine Osmolality (100 - 1400 mOsm/kg) 475 Ur Random Sodium (40 - 200 mmol/L) 93 Ur Random Potassium (25 - 125 mmol/L) 54.8 Ur Random Chloride (110 - 150 mmol/L) 164 H 09/17 1518 Chemistry Serum , Qual (NEG SCREEN) Negative Re-Evaluation MDM Free Text MDM Notes Free Text MDM Notes -Differential diagnosis: [Psychosis, postictal s caballero, seizure, electrolyte abnormality metabolic encephalopathy schizophren ia] -External documents reviewed: [Discharge summary 09/15/2022 patient reportedly presented for medication ref ill, drowsy, admitted, ultimately discharged [facility] to [facility]] -My EKG interpretation: I directly visualized an d interpreted the EKG during medical decision-making My interpretation: [Rate 67 regular intervals re gular axis sinus rhythm no significant ST segment eleva tions or depressions nonspecific ST segment change T wave inversion aVL, EKG from 1930 hrs.] -My imaging interpretation: [n/a] -My review of imaging reports: [CT brain negativ e] -Labs reviewed and interpret ed by me are significant for: [BMP with hyponatremia , LFTs unremarkable hCG negative lipase negative troponin negative CBC with no leukocytosis or anemia UDS positive for benzodia zepines likely iatrogenic, urinalysis not concerning for UTI] -Decision rules/scores evaluated: [n/a] -Treatment and Prescription drug managem ent: [Keppra, Haldol given for seizure prevention and to facilitate work-up given patie nt's psychosis versus altered mental status] -ED course: [Patient present s via EMS tearful, altered, with possible psychosis versus postictal state versus encephalop athy, history limited from the patient we will plan for admission for further work-up] -Discussed case/patient with: [I discussed the c ase with the hospitalist, who agrees with plan to admit th e patient. Also discussed case with EMS who brought the patient] -I considered admission for: [Altered mental sta tus] -Disposition: [Admitted] -Problems and their severity/complexity: [Altere d mental status] -Social determinants of health: [n/a] ED Course Medication(s) Ordered Medication(s) Ordered: Central Nervous System Agents Sig/Ksenia Start time Last Medication Dose Route Stop Time Status Admin Haloperidol Lactate 2.5 MG X1ED STA 09/17 1630 DC IV 09/17 1631 Levetiracetam 100 ML X1ED STA 09/17 1457 DC IV 09/17 1511 Patient Discharge Departure Vital Signs/Condition Vital Signs First Documented: Result Date Time Pulse Ox 100 09/17 1431 B/P 117/84 09/17 1431 B/P Mean 95 09/17 1431 O2 Delivery Room air 09/17 1431 Temp 97.9 09/17 1431 Pulse 64 09/17 1431 Resp 18 09/17 1431 Last Documented: Result Date Time Pulse Ox 100 09/17 1530 B/P 120/78 09/17 1530 B/P Mean 92 09/17 1530 O2 Delivery Room air 09/17 1530 Pulse 61 09/17 1530 Resp 19 09/17 1530 Temp 97.9 09/17 1431 All vital signs available at the time of this en try have been reviewed. Condition Stable Clinical Impression Clinical Impression Primary Impression: Altered mental status Disposition Decision Admit Admit Physician Name Marshall Orellana MD )( Admission Accepts Yes )( Accepted Time 163 )( Accepted Date 09/17/22 Electronically Signed by Valentina Samayoa MD on 0 09/20/22 at 1114 RPT #:[id number] END OF REPORT 2022-09-17 00:19:00-00:00 [facility] ([facility]) EMERGENCY PROVIDER REPORT REPORT#:[id number] REPORT STATUS: Signed DATE:09/17/22 TIME: 0019 PATIENT: BHUMIKA JONES UNIT #: [id number] ROOM/BED: AGE: 47 SEX: F PCP PHYS: No Primary or Family Ph ysician SERVICE AUTHOR: Asim Jack MD * ALL edits or amendments must be made on the el [employer]/computer document * HPI-General Illness General Initial Greet Date/Time 09/16/22 6239 Presentation Chief Complaint Anxiety, Not feeling well Free Text HPI Notes Free Text HPI Notes Patient brought in by EMS [facility] after increasing anxiety and concern for possible seizure activity. She was r ecently admitted here at [facility] and worked up for possible seizures. She is alert and oriented for me initially with no signs of loss of bowel or bladder function, no oral lesions, and no signs of seizure otherwise. No fever, no chills, no vomiting, no diarrhea. She denies chest or abdominal pain. No leg or back pain. Review of Systems ROS Statements All systems rev neg except as marked. Review of Systems Constitutional Denies: Fever. Respiratory Denies: Shortness of breath. Cardiovascular Denies: Chest pain. GI Denies: Abdominal pain, Nausea, Vomiting. Skin Denies: Rash. Neurologic Denies: Change LOC, Confusion, Focal weakness, N umbness, Syncope. Psychiatric Reports: Anxiety. Denies: Agitation. Past Medical History - Adult Stated Complaint EMOTIONAL DISTRESS;"ATTACK";LEE; CP Allergies Coded Allergies: No Known Allergies (09/13/22) Home Medications Active Scripts carBAMazepine (TEGretol) 400 MG PO Q12H carBAMazepine (TEGretol) 400 MG PO Q12H #120 TA BS Prov: 09/13/22 Discontinued Scripts risperiDONE (RisperDAL) 3 MG PO BEDTIME risperiDONE (RisperDAL) 3 MG PO BEDTIME #30 TAB S Prov: 09/13/22 DC: 09/14/22 1500 entry level account representative correction DIVALPROEX (GINA CALLES) 1,000 MG PO DAILY DIVALPROEX (GINA CALLES) 1,000 MG PO DAILY # 60 TABS Prov: 09/13/22 DC: 09/14/22 1459 entry level account representative correction Reported Medications DIVALPROEX ER (DEPAKOTE ER) 1,000 MG PO DAILY risperiDONE (RisperDAL) 3 MG PO DAILY Calculated Suicide Risk (nurs) No risk Past Medical History: Reports: Seizure disorder. Additional Medical History As per HPI. Additional Surgical History Noncontributory Additional Family History Unable to obtain Drug Use Denies recreational drugs Smoking status for patients 13 years old or olde r: Unknown,if ever smoked Other Social History Homeless Physical Exam Vital Signs Vital Signs First Documented: Result Date Time Pulse Ox 100 09/17 2255 B/P 136/82 09/17 2255 B/P Mean 100 09/17 2255 O2 Delivery Room air 09/17 2255 Temp 37.1 09/17 2255 Pulse 75 09/17 2255 Resp 16 09/17 2255 Last Documented: Result Date Time Pulse Ox 99 09/18 15 B/P 142/84 09/18 15 B/P Mean 103 09/18 15 O2 Delivery Room air 09/18 15 Temp 36.9 09/18 15 Pulse 67 09/18 15 Resp 16 09/18 15 Review of Vital Signs Reviewed Free Text PE Notes Free Text PE Notes Physical exam: General: AOx4, NAD, well appearing, WN, well hyd rated, cooperative Head: NC, AT Neck: supple, FROM Eyes: PERRL, EOMi, no icterus Resp: B/L BS, no wheezing, no rales, no rhonchi, no distress, speaking full sentences CV: RRR, nml cap refill, nml pulses Abd: soft, NT, ND, No rebound/guarding Back: FROM w/o pain, No CVAT Ext: no pitting edema. FROM Skin: no lacerations/diaphoresis/swelling. nml s kin turgor. intact Neuro: 5/5x4, nonfocal, nml speech, cn 2-[address], nml memory Psych: nml affect/mood with normal thought/cogni tion/judgment Interpretation Diagnostics Lab Results Interpretation Considerations Reviewed prior records Results Laboratory Tests 09/16/222333: [Embedded Image Not Available] Laboratory Tests: 09/164 2334 Chemistry Sodium (133 - 144 mmol/L) 128.0 L Potassium (3.5 - 5.1 mmol/L) 4.4 Chloride (95 - 105 mmol/L) 98 Carbon Dioxide (21 - 32 mmol/L) 23 Anion Gap (4.0 - 15.0 GAP calc) 7.0 BUN (7 - 18 MG/DL) 9 Creatinine (0.55 - 1.30 MG/DL) 0.52 L Glomerular Filtr Rate (>60 estGFR) 115 Glucose (70 - 110 MG/DL) 101 Calcium (8.5 - 10.1 MG/DL) 9.7 Total Bilirubin (0.00 - 1.00 MG/DL) 0.22 Direct Bilirubin (0.00 - 0.30 MG/DL) < 0.10 Indirect Bilirubin (0.2 - 1.3 MG/DL) 0.22 AST (15 - 37 Unit/L) 22 ALT (12 - 78 Unit/L) 15 Total Alk Phosphatase (45 - 117 Unit/L) 66 Troponin I High Sens (0 - 45 ng/L) 7 Total Protein (6.4 - 8.2 G/DL) 7.7 Albumin (3.4 - 5.0 G/DL) 3.2 L Albumin/Globulin Ratio (1.2 - 2.2 RATIO) 0.7 L Specimen Appearance (1 NORMAL Index/DL) 1 KASSIDY L <2 MG Specimen Hemolysis (1 NORMAL Index/DL) 3 SMALL 25-50 MG Hematology WBC (4.1 - 12.1 K/mm3) 5.6 RBC (3.8 - 5.5 M/mm3) 3.70 L Hgb (10.6 - 15.8 G/DL) 10.8 Hct (31.8 - 47.4 %) 32.0 MCV (80.1 - 101.1 fL) 86.5 MCH (25.3 - 35.3 pg) 29.2 MCHC (32.7 - 35.1 G/DL) 33.8 RDW (12.2 - 16.4 %) 14.3 Plt Count (155 - 337 K/mm3) 146 L MPV (6.8 - 11.2 fL) 11.4 H Gran % (37.8 - 82.6 %) 55.8 Lymph % (Auto) (14.1 - 45.4 %) 29.6 [place] % (Auto) (2.5 - 11.7 %) 10.8 Eos % (Auto) (0.0 - 6.2 %) 2.9 Baso % (Auto) (0.0 - 2.1 %) 0.7 Gran # (2.0 - 13.7 k/mm3) 3.12 Lymph # (Auto) (0.6 - 3.8 K/mm3) 1.65 [place] # (Auto) (0.11 - 0.59 K/mm3) 0.60 H Eos # (Auto) (0.0 - 0.4 K/mm3) 0.16 Baso # (Auto) (0.0 - 0.1 K/mm3) 0.04 Immature Gran % (0.0 - 2.0 %) 0.2 Nucleated RBC % (0.0 - 1.0 /100WBC%) 0.0 Nucleated RBCs # (0.0 - 0.05 K/mm3) 0.00 Recent Impressions: CAT SCAN - CT HEAD/BRAIN W/O CONT 09/16 0007 Report Impression - Status: SIGNED Entered: 09/17/2022 0035 IMPRESSION: 1. No CT evidence of acute intracranial abnorma lity. Impression By: [email or web address] - Jess Iglesias MD RADIOLOGY - XR CHEST 1 V 09/16 2305 Report Impression - Status: SIGNED Entered: 09/16/2022 2337 IMPRESSION: No acute cardiopulmonary disease. Impression By: [email or web address] - Flo Jansen MD Lab Imaging Statement Laboratory radiographic studies reviewed and con sidered in the medical decision-making. ECG #1 Interpretation Text/Dict Note 0007 EKG shows normal sinus rhythm and rate of 6 4. There is no acute ST elevation to suggest ischemia. Normal axis and i ntervals without significant hypertrophy or ectopy. Nonspecific T wave change s noted with low voltage. I personally reviewed and interpreted the EKG Re-Evaluation MDM Free Text MDM Notes Free Text MDM Notes [facility] from local [facility] with concern for possible seizure activity. I see no sign of active seizure activity here in the emergency department. Neurologically she has intac t cranial nerves, motor and sensory in the upper and lower extremities are intact. Gait is normal, sp eech is normal, and her cognition is normal. Cerebellar function is inta ct as well. CT scan of the head obtained which demonstrates no acute intrac ranial bleed or mass. No leukocytosis, fever, tachycardia, or hypotension to suggest sepsis or septic shock. Urinalysis is clean without infection. EK G is without acute ST elevation, I reviewed this, and high-sensitivity troponin is negative suggesting against acute myocardial inf arction. No acute renal insufficiency, dehydration, or new electrolyte abnormality noted on metaboli c panel (she's had mild hyponatremia recently/old records reviewed). No sign of emergent condition tonight in the ED and I feel she is stable for d ischarge. Patient urged to follow-up with [facility] in the next 2 to 3 days Re-Evaluation/Progress #1 Time of Re-Eval 0136 Re-Eval Status Unchanged ED Course Medication(s) Ordered Medication(s) Ordered: Central Nervous System Agents Sig/Ksenia Start time Last Medication Dose Route Stop Time Status Admin Midazolam HCl 1 MG X1ED STA 09/16 2304 DC 09/16 IV 09/16 2305 2345 Patient Discharge Departure Vital Signs/Condition Vital Signs First Documented: Result Date Time Pulse Ox 100 09/17 2255 B/P 136/82 09/16 225 B/P Mean 100 09/17 2255 O2 Delivery Room air 09/17 2255 Temp 37.1 09/17 2255 Pulse 75 09/17 2255 Resp 16 09/17 2255 Last Documented: Result Date Time Pulse Ox 99 09/17 0016 B/P 142/84 09/17 001 B/P Mean 103 09/18 15 O2 Delivery Room air 09/18 15 Temp 36.9 09/18 15 Pulse 67 09/18 15 Resp 09/17 All vital signs available at the time of this en try have been reviewed. Clinical Impression Clinical Impression Primary Impression: Anxiety Secondary Impressions: History of seizures, Home less Disposition Decision Discharge )( Discharged to Home Yes )( Time 0137 Discharge/Care Plan Counseled Regarding Diagnosi s, Lab results, Imaging studies, Need for follow-up, When to return to ED Patient Instructions ED Anxiety Reaction, ED Sei zure, Recurrent (Adult) Additional Instructions Please follow-up with [facility], and neurology. Return if any confusion, headache, sti ff neck, fever, vomiting, or any other new concerns. Please take all your medications as instructed Referrals Provider Group: [facility] Follow-Up: 2-3 Days Provider Referral: Nelia Parker MD Follow-Up: 2-3 Days Address: [address] [place] [address] [address] [place] [address] Resource Referral: Savita Orona [facility] Follow-Up: 2-3 Days Address: [address] [place] [address]. [place] [address] Electronically Signed by Asim Jack MD on 0 09/17/22 at 0140 RPT #:[id number] END OF REPORT 2022-09-15 12:06:00-00:00 [facility] ([facility]) Electroencephalogram-EEG REPORT#:[id number] REPORT STATUS: Signed DATE:09/15/22 TIME: 1206 PATIENT: BHUMIKA JONES UNIT #: [id number] ROOM/BED: B250W : 74 AGE: 47 SEX: F ATTEND: Caroline Forbes mmad, MD ADM AUTHOR: Vickie Lewis MD * ALL edits or amendments must be made on the [employer] document * Procedure Procedure Date of procedure: 09/15/22 Procedure performed: routine EEG Indication: seizure Procedure description: This is an 18 channel EEG recording obtained uti lizing the modified 10/20 electrode placement system. Start time 08:27 Stop time 08:58 Findings: There is an occipital dominant rhythm of 8 Hz se en bilaterally. Excessive amount of myogenic artifact was seen in all sloan ons. Occasional movement artifact was seen as well. Within the technical limitations of this EEG, no overt focal slowing or epile ptiform discharges noted. Patient was drowsy but no stage II sleep was recorded. Hyperventilation an d photic stimulation were not performed. No electrographic seizures recorded. Impression/Conclusion: Considering some technical difficulties due to a rtifact as mentioned above, overall this is a normal awake and drowsy EEG re cording with no epileptiform discharges or electrographic seizures recorded. at 1209 RPT #:[id number] END OF REPORT 2022-09-15 12:00:00-00:00 [facility] REPORT#:[id number] REPORT STATUS: Signed DATE:09/15/22 TIME: 1200 PATIENT: BHUMIKA JONES UNIT #: [id number] ROOM/BED: 250-W : 74 AGE: 47 SEX: F ATTEND: Matt Forbes MD ADM AUTHOR: Vladimir Forbes MD * ALL edits or amendments must be made on the [employer] document * General Information Problem List/A P: 1. Psychosis 2. Seizure-like activity 3. Nonadherence to medication 4. UTI (urinary tract infection) 5. Seizure disorder Discharge date: 09/15/22 Discharge diagnosis: Seizure disorder. Psychosis. Mood disorder Homeless status Hospital course: Patient is a 47-year-old female with a past medi gracie history of mood disorder, seizure disorder who primarily came to [facility] because of refilling other medications. As per the ED note the medications were refilled however she seemed to be drowsy groggy a nd was admitted to the hospital. The patient stayed asleep throughout the night as she received a do se of Ativan not sure at this time Ativan was given. It seems that she might h ave developed seizure episode that she is on divalproex and valproic a cassandra along with risperidone. Patient is currently being evaluated fo r possible seizure episode. She is [place]-speaking patient only in drugless physician was used. Patient den ies to have any seizure episodes at home she just ran out of her medications and came to the hospital. Patient otherwise remains hemodynamicall y stable. However she is too drowsy to be discharged safely back home. I discussed the case with the patient. She wants her medications to be refilled and natasha t she [facility] her [facility]. I discussed with her about potential seizure epi sodes in the future use of medications compliance with the medications and further prescriptions. She states that she would management to the [facility]. I have requested case management to evaluate her safe discharge. 1. Seizure episode. Unclear if the patient has a seizure episode. She received a dose of Ativan in the ED. Currently too drowsy to be discharged home. I will pend the patient overnight for further ob servation. -Neurochecks. -Telemetry monitoring. -Refilling of medications. -Schizophrenia. Continue with her home medicatio ns. If patient is stable she can be discharged back home tomorrow All pertinant labs, Imaging, EKG, telemetry data ,and medical records are reviewed by me personally. I have discussed the available findings, initial diagnosis and related differentials with the pat ient/after school caregiver including RN. All concerns and questions a re answered to the best of my abilities based on the available data.I have initia isabel the plan of care based on preliminary diagnosis, requested appopriate consultations with labs/elian gings. Patient/after school caregiver verbalizes understanding of the plan of care. Med Rec Med Rec Discharge meds: Continue taking these medications: carBAMazepine (TEGretol) 200 MG TAB 400 MILLIGRAM ORAL EVERY 12 HOURS. Qty = 120 DIVALPROEX ER (DEPAKOTE ER) 500 MG TAB.ER.24H 1,000 MILLIGRAM ORAL DAILY. Instructions: 2 TABS DAILY risperiDONE (RisperDAL) 3 MG TAB 3 MILLIGRAM ORAL DAILY. Discharge Instructions PCP Discharge to: Home/Self Care Additional Discharge Routines: PCP Follow-Up Diet: Resume Home Diet/Feeds Activity: Resume Normal Activity Follow-up Appointments PCP follow-up: PCP: No Primary or Family Physician PCP follow up timeframe: In 1-2 weeks Electronically Signed by Vladimir Forbes MD on at 1202 RPT #:[id number] END OF REPORT 2022-09-14 16:56:00-00:00 [facility]) Neurology Consultation Note REPORT#:[id number] REPORT STATUS: Signed DATE:09/14/22 TIME: 1656 PATIENT: BHUMIKA JONES UNIT #: [id number] ROOM/BED: [address] : 74 AGE: 47 SEX: F ATTEND: Meli Jaimes MD ADM AUTHOR: Vickie Lewis MD * ALL edits or amendments must be made on the Sientra/computer document * History of Present Illness HPI Reason for consult: History of seizures. HPI: Patient was seen this afternoon for neurological consultation. She is a 47 years old female with history of schizophrenia a nd reported seizures. She she is so somnolent and detailed history could not b e obtained from patient. So admission notes were reviewed. Patient h ad a visit to the ED night before last night asking for help refill medications. She was having hallucinations as well and prescription of medicine were given and she was discharged. Patient returning because stating th at she could not get medication refilled. From HPI: Patient is a 47-year-old female with a past medi [facility] history of mood disorder, seizure disorder who primarily came to [facility] because of refilling other medications. As per the ED note the medications were refilled however she seemed to be drowsy groggy a nd was admitted to the hospital. The patient stayed asleep throughout the night as she received a do se of Ativan not sure at this time Ativan was given. It seems that she might h ave developed seizure episode that she is on divalproex and valproic a cassandra along with risperidone. Patient is currently being evaluated fo r possible seizure episode. She is [place]-speaking patient only in drugless physician was used. Patient den ies to have any seizure episodes at home she just ran out of her medications and came to the hospital. Patient otherwise remains hemodynamicall y stable. However she is too drowsy to be discharged safely back home. History - Adult longitudinal Additional medical history: As per HPI. Additional family history: Unable to obtain Drug use: Denies recreational drugs Smoking status for patients 13 years old or olde r: Never Smoker Allergies: Coded Allergies: No Known Allergies (09/13/22) Review of Systems Unable to obtain due to: Current mental status Objective General VS: Last Documented: Result Date Time Pulse Ox 100 09/14 1534 B/P 117/82 09/14 1534 B/P Mean 93.8 09/14 1534 Temp 97.9 09/14 1534 Pulse 69 09/14 1534 Resp 16 09/14 1534 O2 Delivery Room air 09/13 2026 PATIENT WEIGHT: Weight (lb): Weight (oz): Weight (kg): 68.182 Medications Current Home Medications DIVALPROEX ER (DEPAKOTE ER) 1,000 MG PO DAILY risperiDONE (RisperDAL) 3 MG PO DAILY carBAMazepine (TEGretol) 400 MG PO Q12H Active Meds + DC'd Last 24 Hrs Risperidone (RisperDAL) 3 MG BEDTIME PO Divalproex Sodium (DEPAKOTE ER "INTERIANO" (NF)) 1,00 0 MG DAILY PO (PEND) Risperidone (RisperDAL) 3 MG DAILY PO Ceftriaxone Sodium (ROCEPHIN) 1 GM Q24H IV Sterile Water (STERILE WATER) 10 ML Acetaminophen (TYLENOL) 650 MG Q4H PRN PRN PO Acetaminophen (TYLENOL) 650 MG Q6H PRN PRN RECTA L Al Hydrox/Mg Hydrox/Simethicone (MAALOX PLUS) 30 ML Q4H PRN PRN PO Calcium Carbonate (TUMS) 1,000 MG DAILY PRN PRN PO Carbamazepine (TEGretol) 400 MG Q12H PO Ceftriaxone Sodium (ROCEPHIN) 1 GM Q24H IV Sterile Water (STERILE WATER) 10 ML Clonidine HCl (CATAPRES) 0.1 MG Q6H PRN PRN PO Guaifenesin/Dextromethorphan (ROBITUSSIN-DM) 10 ML QID PRN PRN PO Hydrocodone Bitart/Acetaminophen (NORCO 5/325 TA BLET) 1 TAB Q4H PRN PRN PO Hydrocodone Bitart/Acetaminophen (NORCO 10/325 T ABLET) 1 TAB Q4H PRN PRN PO Magnesium Sulfate/Dextrose (MAGNESIUM SULFATE 1G M/D5W 100ML) 100 ML DAILY PRN PRN IV Ondansetron HCl (ZOFRAN) 4 MG Q4H PRN PRN IV Potassium Chloride (K-DUR) 40 MEQ DAILY PRN PRN PO Potassium Phos/Sodium Phos (PHOS-NAK PACKET) 2 P KT DAILY PRN PRN PO (CKD ) Senna (SENOKOT) 1 TAB DAILY PRN PRN PO (CKD) Simethicone (MYLICON) 160 MG Q6H PRN PRN PO Sodium Chloride (SODIUM CHLORIDE 0.9% 1000 ML) 1 ,000 ML .[id number] IV Trazodone HCl (DESYREL) 50 MG BEDTIME PRN PRN PO Sodium Chloride (SODIUM CHLORIDE 0.9% 1000 ML) 1 ,000 ML .[id number] IV Carbamazepine (TEGretol) 400 MG BID PO Divalproex Sodium (DEPAKOTE DR) 1,000 MG BID PO (DC) Acetaminophen (TYLENOL) 650 MG Q6H PRN PRN PO Ondansetron HCl (ZOFRAN) 4 MG Q4H PRN PRN IV Ceftriaxone Sodium (ROCEPHIN) 1 GM Q24H IV (CAN) Lactated Ringer's (LACTATED RINGERS) 1,000 ML .Q 13H20M IV Ceftriaxone Sodium (ROCEPHIN) 1 GM X1ED STA IV ( DC) Sterile Water (STERILE WATER) 10 ML Carbamazepine (TEGretol) 400 MG X1ED STA PO (DC) Divalproex Sodium (DEPAKOTE "PINK") 500 MG X1ED STA PO (DC) Risperidone (RisperDAL) 3 MG X1ED STA PO (DC) Lorazepam (ATIVAN) 1 MG X1ED STA PO (DC) Physical Exam General appearance: no acute distress Head/Eyes: atraumatic, normocephalic Neck: supple/no meningismus Neuro comment: Patient is somnolent but arousable. Cranial nerves inspection sh owed no ptosis or facial droopiness. No spontaneous nystagmus. Patient seems to move all 4 extremities equally. Rest of neuro examination was limited due to pat ient poor cooperation Results Findings/Data: Laboratory Tests 09/14 0315 Chemistry Sodium (133 - 144 mmol/L) 130.0 L Potassium (3.5 - 5.1 mmol/L) 4.0 Chloride (95 - 105 mmol/L) 101 Carbon Dioxide (21 - 32 mmol/L) 24 Anion Gap (4.0 - 15.0 GAP calc) 5.0 BUN (7 - 18 MG/DL) 21 H Creatinine (0.55 - 1.30 MG/DL) 0.61 Glomerular Filtr Rate (>60 estGFR) 110 Glucose (70 - 110 MG/DL) 106 Calcium (8.5 - 10.1 MG/DL) 9.1 Total Bilirubin (0.00 - 1.00 MG/DL) 0.24 Direct Bilirubin (0.00 - 0.30 MG/DL) < 0.10 Indirect Bilirubin (0.2 - 1.3 MG/DL) 0.24 AST (15 - 37 Unit/L) 24 ALT (12 - 78 Unit/L) 19 Total Alk Phosphatase (45 - 117 Unit/L) 81 Total Creatine Kinase (26 - 192 Unit/L) 268 H Total Protein (6.4 - 8.2 G/DL) 8.1 Albumin (3.4 - 5.0 G/DL) 3.3 L Albumin/Globulin Ratio (1.2 - 2.2 RATIO) 0.7 L Serum , Qual (NEG SCREEN) Negative Specimen Appearance (1 NORMAL Index/DL) 1 KASSIDY L <2 MG Specimen Hemolysis (1 NORMAL Index/DL) 1 KASSIDY L <10 MG Laboratory Tests 09/14 0634 Coagulation PT (9.4 - 12.5 SECONDS) 10.7 INR (0.88 - 1.13 INR Unit) 0.95 PTT (Reynolds) (24 - 37.7 SECONDS) 34.6 Laboratory Tests 09/14 314 Hematology WBC (4.1 - 12.1 K/mm3) 5.8 RBC (3.8 - 5.5 M/mm3) 3.89 Hgb (10.6 - 15.8 G/DL) 11.4 Hct (31.8 - 47.4 %) 34.6 MCV (80.1 - 101.1 fL) 88.9 MCH (25.3 - 35.3 pg) 29.3 MCHC (32.7 - 35.1 G/DL) 32.9 RDW (12.2 - 16.4 %) 14.3 Plt Count (155 - 337 K/mm3) 230 MPV (6.8 - 11.2 fL) 8.7 Gran % (37.8 - 82.6 %) 44.5 Lymph % (Auto) (14.1 - 45.4 %) 33.6 [place] % (Auto) (2.5 - 11.7 %) 13.4 H Eos % (Auto) (0.0 - 6.2 %) 7.4 H Baso % (Auto) (0.0 - 2.1 %) 0.9 Gran # (2.0 - 13.7 k/mm3) 2.61 Lymph # (Auto) (0.6 - 3.8 K/mm3) 1.96 [place] # (Auto) (0.11 - 0.59 K/mm3) 0.78 H Eos # (Auto) (0.0 - 0.4 K/mm3) 0.43 H Baso # (Auto) (0.0 - 0.1 K/mm3) 0.05 Immature Gran % (0.0 - 2.0 %) 0.2 Nucleated RBC % (0.0 - 1.0 /100WBC%) 0.0 Nucleated RBCs # (0.0 - 0.05 K/mm3) 0.00 Laboratory Tests 09/14 09/14 0605 0315 Toxicology Urine Opiates Screen (<300 NG/ML SCcutoff) NONE DETECTED (NEG) Urine Barbiturates (<200 NG/ML SCcutoff) NONE D ETECTED (NEG) Valproic Acid (50.0 - 100.0 mcG/ML) 80.6 Ur Phencyclidine Scrn (<25 NG/ML SCcutoff) NONE DETECTED (NEG) Ur Amphetamines Screen (<1000 NG/ML SCcutoff) NONE DETECTED (NEG) U Benzodiazepines Scrn (<200 NG/ML SCcutoff) NO NE DETECTED (NEG) Urine Cocaine Screen (<300 NG/ML SCcutoff) NONE DETECTED (NEG) Urine Cannabinoids (<50 NG/ML SCcutoff) NONE D ETECTED (NEG) Laboratory Tests 09/14 0315 Urines Urine Color (YELLOW DESCRIPT) YELLOW Urine Appearance (CLEAR DESCRIPT) CLEAR Urine pH (4.6 - 8.0 pH UNITS) 6.0 Ur Specific [place] (1.001 - 1.035 SG) 1.032 Urine Protein (<30 (1+) mg/dL) 30 (1+) H Urine Glucose (UA) (0 (NORMAL) mg/dL) NORMAL (0 ) Urine Ketones ((NEG) 0 mg/dL) 10 (1+) H Urine Blood (0 (NEG) mg/dL) NEGATIVE (0.00) Urine Nitrite (NEG SCREEN) NEGATIVE (0) Urine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 Dioxide (21 - 32 mmol/L) 27 Anion Gap (4.0 - 15.0 GAP calc) 6.0 BUN (7 - 18 MG/DL) 14 Creatinine (0.55 - 1.30 MG/DL) 0.54 L Glomerular Filtr Rate (>60 estGFR) 114 Glucose (70 - 110 MG/DL) 100 Calcium (8.5 - 10.1 MG/DL) 9.2 Magnesium (1.6 - 2.6 MG/DL) 1.7 Total Bilirubin (0.00 - 1.00 MG/DL) 0.23 Direct Bilirubin (0.00 - 0.30 MG/DL) 0.12 Indirect Bilirubin (0.2 - 1.3 MG/DL) 0.11 L AST (15 - 37 Unit/L) 25 ALT (12 - 78 Unit/L) 18 Total Alk Phosphatase (45 - 117 Unit/L) 68 Total Protein (6.4 - 8.2 G/DL) 8.2 Albumin (3.4 - 5.0 G/DL) 3.3 L Albumin/Globulin Ratio (1.2 - 2.2 RATIO) 0.7 L Specimen Appearance (1 NORMAL Index/DL) 1 KASSIDY L <2 MG Specimen Hemolysis (1 NORMAL Index/DL) 1 NORMAL <10 MG Hematology WBC (4.1 - 12.1 K/mm3) 5.8 RBC (3.8 - 5.5 M/mm3) 3.82 Hgb (10.6 - 15.8 G/DL) 11.2 Hct (31.8 - 47.4 %) 34.0 MCV (80.1 - 101.1 fL) 89.0 MCH (25.3 - 35.3 pg) 29.3 MCHC (32.7 - 35.1 G/DL) 32.9 RDW (12.2 - 16.4 %) 14.5 Plt Count (155 - 337 K/mm3) 214 MPV (6.8 - 11.2 fL) 8.7 Gran % (37.8 - 82.6 %) 52.2 Lymph % (Auto) (14.1 - 45.4 %) 34.0 [place] % (Auto) (2.5 - 11.7 %) 10.1 Eos % (Auto) (0.0 - 6.2 %) 2.7 Baso % (Auto) (0.0 - 2.1 %) 0.7 Gran # (2.0 - 13.7 k/mm3) 3.04 Lymph # (Auto) (0.6 - 3.8 K/mm3) 1.98 [place] # (Auto) (0.11 - 0.59 K/mm3) 0.59 Eos # (Auto) (0.0 - 0.4 K/mm3) 0.16 Baso # (Auto) (0.0 - 0.1 K/mm3) 0.04 Immature Gran % (0.0 - 2.0 %) 0.3 Nucleated RBC % (0.0 - 1.0 /100WBC%) 0.0 Nucleated RBCs # (0.0 - 0.05 K/mm3) 0.00 Point of Care Testing Pulse Oximetry Pulse Ox % 98 On: Room air Interpretation Interpreted by me Time 0959 ECG #1 Interpretation ECG Documented in MUSE Yes Date 09/13/22 Time 1000 Interpreted by and reviewed by me NL ECG Interpretation Normal rate, Normal sinus rhythm, No acute ischemic changes, No STEMI Rate 73 Re-Evaluation MDM Free Text MDM Notes Free Text MDM Notes Number and complexity of problems Differential diagnosis: Arrh ythmia, medication noncompliance, seizure, infection , electrolyte abnormality MDM data: EKG with no acute finding. No signs of infection on lab work. Labs with very mild hyponatremia. Patient wit h no further seizure-like activity. Rx given for seizure medication for home. P atient will follow-up closely with her PCP/neurology. Ambulatory and tolerating p.o. St able for discharge home at this time. Patient updated and agreeable plan of care External documents reviewed: EMS run sheet My EKG interpretation: No acute finding, normal sinus rhythm My CT interpretation: None My x-ray interpretation: No acute Labs reviewed by me and are significant for: Hyp onatremia Decision rules/scores evaluated: None Discussed with: EMS, patient Consider admission for: Not applicable Treatment and disposition: Discharge Shared decision making: With patient as to plan of care and disposition CODE STATUS: Full code Patient Discharge Departure Vital Signs/Condition Vital Signs First Documented: Result Date Time Pulse Ox 97 09/13 0936 B/P 136/80 09/13 0936 B/P Mean 98 09/13 0936 O2 Delivery Room air 09/13 0936 Temp 97.9 09/13 0936 Pulse 88 09/13 0936 Resp 14 09/13 0936 Last Documented: Result Date Time Pulse Ox 97 09/13 0936 B/P 136/80 09/13 0936 B/P Mean 98 09/13 0936 O2 Delivery Room air 09/13 0936 Temp 97.9 09/13 0936 Pulse 88 09/13 0936 Resp 14 09/13 0936 All vital signs available at the time of this en try have been reviewed. Clinical Impression Clinical Impression Primary Impression: Seizure-like activity Secondary Impressions: Nonadherence to medicatio n Disposition Decision Discharge )( Discharged to Home Yes )( Time 1255 )( Date 09/13/22 Discharge/Care Plan Counseled Regarding Diagnosis, Lab resul ts, Prescriptions, Need for follow-up, When to return to ED (Auto) Prescriptions Current Visit Scripts risperiDONE (RisperDAL) 3 MG PO BEDTIME risperiDONE (RisperDAL) 3 MG PO BEDTIME #30 TAB S DIVALPROEX (GINA CALLES) 1,000 MG PO DAILY DIVALPROEX (GINA CALLES) 1,000 MG PO DAILY # 60 TABS carBAMazepine (TEGretol) 400 MG PO Q12H carBAMazepine (TEGretol) 400 MG PO Q12H #120 TA BS Patient Instructions ED Seizure, Recurrent (Adul t) Additional Instructions Please follow-up with PCP first available appoin tment Discharge Note I have spoken with the patie nt and/or caregivers. I have explained the patient's condition, diagnoses and juan jose atment plan based on the information available to me at this time. I have answered the patient's and/ or caregiver's questions and addressed any concerns. The patient and/or careg chris have as good an understanding of the patient 's diagnosis, condition and treatment plan as can be expected at this point. The vital signs have bee n stable. The patient's condition is stable and appr opriate for discharge from the emergency department. The patient will pursue further outpatient evalu ation with the primary care physician or other designated or consulting phys ician as outlined in the discharge instructions. The patient and/or caregivers are agreeable to this plan of care and follow-up instructions have been exp lained in detail. The patient and/or caregivers have received these instructio ns in written format and have expressed an understanding of the discharge inst ructions. The patient and/or caregivers are aware that any significant change in condition or worsening of symptoms should prompt an immediate return to [facility] or the closest emergency department or a call to 911. Electronically Signed by Brad Woodall 09/13/22 at 1327 RPT #:[id number] END OF REPORT
--- NOTE | 2022-11-15 19:43 | ER ---
Nurse's Notes [facility] Name: Sidra Hodges Age: 47 yrs Sex: Female : 1975 Arrival Date: 11/15/2022 Time: 19:32 Bed 17 Private MD: Diagnosis: Chest pain, unspecified Presentation: 11/15 19:38 Chief complaint: EMS states: Toned out for chest pain, EMS states pt was walking [place] [address] [place] when the flat bed knitter were called an pt started c/o chest pain. Note Upon arrival pt request VS, triage and EKG, ERP and charge nurse notified, pt left ER treatment room. Onset of symptoms was November 15, 2022. 19:38 Method Of Arrival: EMS: [facility] ll3 19:38 Acuity: CARMITA 2 ll3 Historical: - Allergies: 19:41 CARBAMAZEPINE DERIVATIVES; ll3 19:41 Depakote; ll3 19:41 Tegretol; ll3 - PMHx: 19:41 ADD/ADHD; Anxiety; Bipolar disorder; Chronic pain; hemorrhoids; Seizures; ll3 - PSHx: 19:41 R LEG SX; ll3 ED Course: 19:34 Patient arrived in ED. ds4 19:35 Cristina Sewell FNP-C is [facility]. kb 19:35 Levy Childress MD is Attending Physician. kb 19:41 Triage completed. ll3 Administered Medications: No medications were administered Outcome: 19:42 Discharge ordered by MD. kb 19:43 Patient left the ED. ll3 Signatures: Cristina Sewell FNP-C FNP-Ckb Swanson, Donovan ds4 Renetta Jarvis RN RN ll3
--- NOTE | 2022-11-15 19:43 | EDPHYS ---
Physician Documentation [facility] Name: Sidra Hodges Age: 47 yrs Sex: Female : 1975 Arrival Date: 11/15/2022 Time: 19:32 Bed 17 Private MD: ED Physician Levy Childress HPI: 11/15 22:14 This 47 yrs old Female presents to ER via EMS with complaints of chest pain. kb 22:14 The patient has experienced similar episodes in the past. The patient has been recently kb seen by a physician:. Pt was walking down the street, a [place] police officer stopped her and she reported she had chest pain. PD called 911 and pt was brought in. Historical: - Allergies: 19:41 CARBAMAZEPINE DERIVATIVES; ll3 19:41 Depakote; ll3 19:41 Tegretol; ll3 - PMHx: 19:41 ADD/ADHD; Anxiety; Bipolar disorder; Chronic pain; hemorrhoids; Seizures; ll3 - PSHx: 19:41 R LEG SX; ll3 ROS: 22:13 Constitutional: Negative for fever, chills, and weight loss. kb 22:13 Cardiovascular: Positive for chest pain. 22:13 All other systems are negative. Exam: 22:13 Constitutional: This is a well developed, well nourished patient who is awake, alert, kb and in no acute distress. Head/Face: Normocephalic, atraumatic. ENT: Moist Mucous membranes Cardiovascular: Regular rate and rhythm with a normal S1 and S2. No gallops, murmurs, or rubs. No pulse deficits. Respiratory: Respirations even and unlabored. No increased work of breathing. Talking in full sentences Skin: Warm, dry with normal turgor. Normal color. MS/ Extremity: Pulses equal, no cyanosis. Neurovascular intact. Full, normal range of motion. Neuro: Awake and alert, GCS 15, oriented to person, place, time, and situation. Moves all extremities. Normal gait. MDM: 19:35 Patient medically screened. kb 22:14 Differential diagnosis: abnormal EKG, acute myocardial infarction, anxiety, coronary kb artery disease chest wall pain. Data reviewed: vital signs, nurses notes. ED course: Pt elected to leave prior to any vital signs or diagnostics. . 22:15 Historians other than the Patient: EMS: [facility]. 11/15 19:36 Order name: EKG; Complete Time: 19:36 kb Administered Medications: No medications were administered Disposition Summary: 11/15/22 19:42 Discharge Ordered Location: Home kb Condition: Stable kb Diagnosis - Chest pain, unspecified kb Followup: kb - With: Emergency Department - When: As needed - Reason: Worsening of condition Followup: kb - With: Private Physician - When: 2 - 3 days - Reason: Recheck today's complaints, Continuance of care, Re-evaluation by your physician Discharge Instructions: - Discharge Summary Sheet kb - Nonspecific Chest Pain, Adult, Pzxf-de-Iiac kb Forms: - Medication Reconciliation Form kb - Thank You Letter kb - Antibiotic Education kb - Prescription Opioid Use kb Signatures: Dispatcher [employer] EDMA Cristina Sewell FNP-C FNP-Renetta Kevin RN RN ll3 Corrections: (The following items were deleted from the chart) 19:42 19:36 Cardiac monitoring ordered. [facility] 19:42 19:36 EKG - Nurse/Tech ordered. [facility] 19:42 19:36 IV Saline Lock ordered. [facility] 19:42 19:36 Labs collected and sent ordered. [facility] 19:43 19:36 Oxygen Per Protocol ordered. [facility] 19:43 19:36 O2 Sat Monitoring ordered. [facility]
== END 2022-11-15 19:43 | disposition home or self-care (01) ==
LOC: ER 19:32
DX: R07.9 Chest pain, unspecified (principal); Z88.8 Allergy status to other drugs, medicaments and biological substances
CPT/HCPCS: 99282

== ENCOUNTER 2023-01-17 17:50 | Emergency (ER) | payer SELFPAY ==
--- NOTE | 2023-01-17 17:56 | ER ---
Nurse's Notes [facility] Name: Sidra Hodges Age: 47 yrs Sex: Female : 1975 Arrival Date: 01/17/2023 Time: 17:50 Bed 4 Private MD: Diagnosis: Ruptured tympanic membrane right Presentation: 01/17 17:52 Chief complaint: Patient states: pt c/o right ear pain and headache. Coronavirus iw screen: At this time, the client does not indicate any symptoms associated with coronavirus-19. Ebola Screen: Patient negative for fever greater than or equal to 101.5 degrees Fahrenheit, and additional compatible Ebola Virus Disease symptoms Patient denies exposure to infectious person. Patient denies travel to an Ebola-affected area in the 21 days before illness onset. No symptoms or risks identified at this time. 17:52 Method Of Arrival: Ambulatory iw 17:52 Acuity: CARMITA 4 iw Historical: - Allergies: 17:53 CARBAMAZEPINE DERIVATIVES; iw 17:53 Depakote; iw 17:53 Tegretol; iw - PMHx: 17:53 ADD/ADHD; Anxiety; Bipolar disorder; Chronic pain; hemorrhoids; Seizures; iw - PSHx: 17:53 R LEG SX; iw Screenin:54 [facility] ED Fall Risk Assessment (Adult) History of falling in the last 3 months, iw including since admission. Abuse screen: Denies threats or abuse. Denies injuries from another. Nutritional screening: No deficits noted. Tuberculosis screening: No symptoms or risk factors identified. Assessment: 17:54 General: Appears in no apparent distress. Behavior is calm, cooperative. Pain: iw Complains of pain in right ear. Neuro: Level of Consciousness is awake, alert, obeys commands, Oriented to person, place, time, situation, Moves all extremities. Full function. Cardiovascular: Patient's skin is warm and dry. Respiratory: Respiratory effort is even, unlabored, Respiratory pattern is regular, symmetrical. EENT: Reports pain in right ear. Derm: Skin is intact, is healthy with good turgor. Musculoskeletal: Range of motion: intact in all extremities. Vital Signs: 17:55 BP 144 / 105; Pulse 64; Resp 16; Temp 98.1; Pulse Ox 100% on R/A; iw ED Course: 17:52 Patient arrived in ED. as 17:52 Ahsan, Laila, RN is Primary Nurse. iw 17:52 Cary Meza MD is Attending Physician. sp3 17:53 Triage completed. iw 17:53 Arm band placed on. iw 17:55 Patient has correct armband on for positive identification. Provided Education on: pain.iw 17:55 No provider procedures requiring assistance completed. Patient did not have IV access iw during this emergency room visit. Administered Medications: No medications were administered Medication: 17:54 VIS not applicable for this client. iw Outcome: 17:55 Discharge ordered by . sp3 18:02 Discharged to home ambulatory. iw 18:02 Condition: good 18:02 Discharge instructions given to patient, Instructed on discharge instructions, follow up and referral plans. Demonstrated understanding of instructions, follow-up care. 18:02 Patient left the ED. iw Signatures: Jessica Perez as Laila Foreman, RN RN iw Cary Meza MD MD sp3
--- NOTE | 2023-01-17 17:56 | EDPHYS ---
Physician Documentation [facility] Name: Sidra Hodges Age: 47 yrs Sex: Female : 1975 Arrival Date: 01/17/2023 Time: 17:50 Bed 4 Private MD: ED Physician Cary Meza HPI: 01/17 17:53 This 47 yrs old Female presents to ER via Ambulatory with complaints of Ear sp3 Pain. 17:53 47-year-old female with multiple medical problems well-known to the ED now presents sp3 again for right-sided ear pain. She was seen 2 days ago for the same thing and was diagnosed with ruptured right panic membrane and was placed on amoxicillin and pain medication. She has no new symptoms at this time. She denies significant headache (she states she had a mild 1 which is now resolved), facial pain, neck pain, chest pain, shortness of breath, abdominal pain, fever, syncope, near syncope, rash, travel history, known sick contacts, or any other signs or symptoms at this time. ROS otherwise negative.. Historical: - Allergies: 17:53 CARBAMAZEPINE DERIVATIVES; iw 17:53 Depakote; iw 17:53 Tegretol; iw - PMHx: 17:53 ADD/ADHD; Anxiety; Bipolar disorder; Chronic pain; hemorrhoids; Seizures; iw - PSHx: 17:53 R LEG SX; iw ROS: 17:54 Constitutional: Negative for fever, chills, and weight loss, Eyes: Negative for injury, sp3 pain, redness, and discharge, Neck: Negative for injury, pain, and swelling, Cardiovascular: Negative for chest pain, palpitations, and edema, Respiratory: Negative for shortness of breath, cough, wheezing, and pleuritic chest pain, Abdomen/GI: Negative for abdominal pain, nausea, vomiting, diarrhea, and constipation, Back: Negative for injury and pain, MS/Extremity: Negative for injury and deformity, Skin: Negative for injury, rash, and discoloration, Neuro: Negative for headache, weakness, numbness, tingling, and seizure. 17:54 All other systems are negative. Exam: 17:54 Constitutional: This is a well developed, well nourished patient who is awake, alert, sp3 and in no acute distress. Head/Face: Normocephalic, atraumatic. Eyes: Pupils equal round and reactive to light, extra-ocular motions intact. Lids and lashes normal. Conjunctiva and sclera are non-icteric and not injected. Cornea within normal limits. Periorbital areas with no swelling, redness, or edema. Neck: Trachea midline, no thyromegaly or masses palpated, and no cervical lymphadenopathy. Supple, full range of motion without nuchal rigidity, or vertebral point tenderness. No Meningismus. Chest/axilla: Normal chest wall appearance and motion. Nontender with no deformity. No lesions are appreciated. Cardiovascular: Regular rate and rhythm with a normal S1 and S2. No gallops, murmurs, or rubs. Normal PMI, no JVD. No pulse deficits. Respiratory: Lungs have equal breath sounds bilaterally, clear to auscultation and percussion. No rales, rhonchi or wheezes noted. No increased work of breathing, no retractions or nasal flaring. Abdomen/GI: Soft, non-tender, with normal bowel sounds. No distension or tympany. No guarding or rebound. No evidence of tenderness throughout. Back: No spinal tenderness. No costovertebral tenderness. Full range of motion. Skin: Warm, dry with normal turgor. Normal color with no rashes, no lesions, and no evidence of cellulitis. MS/ Extremity: Pulses equal, no cyanosis. Neurovascular intact. Full, normal range of motion. Neuro: Awake and alert, GCS 15, oriented to person, place, time, and situation. Cranial nerves II-XII grossly intact. Motor strength 5/5 in all extremities. Sensory grossly intact. Cerebellar exam normal. Normal gait. Psych: Awake, alert, with orientation to person, place and time. Behavior, mood, and affect are within normal limits. 17:54 ENT: Right TM demonstrates ruptured membrane with dried blood. No significant or active bleeding noted. ENT exam is otherwise negative.. Vital Signs: 17:55 BP 144 / 105; Pulse 64; Resp 16; Temp 98.1; Pulse Ox 100% on R/A; iw MDM: 17:52 Patient medically screened. sp3 17:55 Data reviewed: vital signs, nurses notes, old medical records. ED course: Patient with sp3 continued ruptured eardrum. No new pathology is present. At this time she is not septic and not having any critical or significant pathology. She will be safely discharged home at this time.. Administered Medications: No medications were administered Disposition Summary: 01/17/23 17:55 Discharge Ordered Location: Home sp3 Condition: Stable sp3 Diagnosis - Ruptured tympanic membrane right sp3 Followup: sp3 - With: Private Physician - When: Upon discharge from the Emergency Department - Reason: Recheck today's complaints Discharge Instructions: - Discharge Summary Sheet sp3 - Eardrum Rupture, [id number] sp3 Forms: - Medication Reconciliation Form sp3 - Thank You Letter sp3 - Antibiotic Education sp3 - Prescription Opioid Use sp3 - Patient Portal Instructions sp3 Signatures: Laila Foreman RN RN iw Cary Meza MD MD sp3
--- OUTSIDE RECORDS SUMMARY | 2023-01-17 18:00 | XMS REPORT | Continuity of Care Document ---
:1975 Author Organization [facility] t Address [address] [place] [address] Care Team Providers Name Role Phone Swapnil Fung Primary Care Physician [phone] DR JESS PAIGE Attending Clinician Unavailable Heri [...] Deon Nunez DO Attending Clinician Doctor Unassigned, [place] Attending Clinician Unavailable Kp Dorado Attending Clinician [...] Attending Clinician Le Ramirez NP Attending Clinician DR JESS PAIGE Admitting Clinician [...] Policy Number Effective Date Expiration Date S ourchun 1000 [id number] 2022 00:00:00 MEDICAID ALIEN PENDING 2021 PENDING 00:00:00 Problems Condition Condition Condition Status Onset Resolution Last Treating Co mments Source Name Details Category Date Date Treatment Clinician Date Obesity Obesity Disease Active Univers (BMI (BMI 1-30 ity of 30-39.9) 30-39.9) 00:00: [address] Contracept Contracept Disease Active U mary kay wei 6-02 ity of management management 00:00: Te [...] of s s 00:00: g of this [place] 00 note Medical might be Branch different from the original. ICD10 Diagnosis Term Instructional Interventionist Utility Asthma Asthma Disease Active Overview: Univer s 2-08 [place] ity of 00:00: g of this [place] 00 note Medical might be Branch different from the original. ICD10 Diagnosis Term Instructional Interventionist Utility Mental Mental Disease Active Univers disorder disorder 208 ity of 00:00: [place] [facility] Encounter Encounter Disease Active Overview: Univers for for 2 Formatt[place] ity of routine routine 00:00: g of this [place] gynecologi gynecologi 00 note Me dical gracie gracie might be Branch examinatio examinatio different n n from the original. ICD10 Diagnosis Term Instructional Interventionist Utility Morbid Morbid Disease Active Univers obesity obesity 2-08 ity of 00:00: [place] 00 Medical Branch Depression Depression Disease Active U nivers 2-08 ity of 00:00: [place] [facility] Generalize Generalize Disease Active U nivers d anxiety d anxiety 2-08 ity of disorder disorder 00:00: [place] [facility] Seizure Seizure Disease Active Univers disorder disorder 2-08 ity of 00:00: [place] 00 Medical Branch Allergies, Adverse Reactions, Alerts Allergy Allergy Status Severity Reaction(s) Onset Inactive Treating Comm ents Source Name Type Date Date Clinician carbamaz DA Active U [facility] epine 3-23 [place] 00:00: [facility] No Known DA Active U [facility] Allergie 3-23 [place] 00:[place]: d [facility] carbamaz DA Active U UNKNOWN [facility] epine 3-20 [place] [facility] NO KNOWN Drug Active Univers ALLERGIE Class ity of S [facility] No Known DA Active [facility] Allergie [place] s Social History Social Habit Start Date Stop Date Quantity Comments Source Exposure to 2022-09-14 2022-09-24 Not sure [facility]-CoV-2 00:00:00 12:30:00 [place] [facility] (event) Branch Alcohol intake 2022-09-10 2022-09-10 Current University 00:00:00 00:00:00 non-drinker of [facility] alcohol (finding) [place] Tobacco use and 2014-07-05 2014-07-05 Smokeless tobacco Un iversity of exposure 00:00:00 00:00:00 non-user [facility] Sex Ass[birth year] At [birth year] Universit y of 00:00:00 00:00:00 [facility] Smoking Status Start Date Stop Date Source Never smoked tobacco [facility] Medications Ordered Filled Start Stop Current Ordering [...] [place] Branch 09/09/22 at 2115, STAT hydrOXYzine 2022-0 Yes [id number] 25mg Take 1 Univers 25 mg 3-19 tablet by ity of tablet 00:00: mouth [place] 00 every 6 Medical (six) Branch hours. levETIRAcet 2022-0 Yes [id number] 500mg Take 1 Univers am (KEPPRA) 3-19 tablet by ity of 500 mg 00:00: mouth 2 [place] tablet 00 (two) Medical times Branch daily. hydrOXYzine 2022-0 Yes [id number] 25mg Take 1 Univers 25 mg 3-19 tablet by ity of tablet 00:00: mouth [place] 00 every 6 Medical (six) Branch hours. levETIRAcet 2023-0 Yes [id number] 500mg Take 1 Univers am (KEPPRA) 3-19 tablet by ity of 500 mg 00:00: mouth 2 [place] tablet 00 (two) Medical times Branch daily. hydrOXYzine 2023-0 Yes [id number] 25mg Take 1 Univers 25 mg 3-19 tablet by ity of tablet 00:00: mouth [place] 00 every 6 Medical (six) Branch hours. levETIRAcet 3-0 Yes [id number] 500mg Take 1 Univers am (KEPPRA) 3-19 tablet by ity of 500 mg 00:00: mouth 2 [place] tablet 00 (two) Medical times Branch daily. hydrOXYzine 3-0 Yes [id number] 25mg Take 1 Univers 25 mg 3-19 tablet by ity of tablet 00:00: mouth [place] 00 every 6 Medical (six) Branch hours. levETIRAcet 3-0 Yes [id number] 500mg Take 1 Univers am (KEPPRA) 3-19 tablet by ity of 500 mg 00:00: mouth 2 [place] tablet 00 (two) Medical times Branch daily. hydrOXYzine 3-0 Yes [id number] 25mg Take 1 Univers 25 mg 3-19 tablet by ity of tablet 00:00: mouth [place] 00 every 6 Medical (six) Branch hours. levETIRAcet 3-0 Yes [id number] 500mg Take 1 Univers am (KEPPRA) 3-19 tablet by ity of 500 mg 00:00: mouth 2 [place] tablet 00 (two) Medical times Branch daily. acetaminoph 2022- No 650mg 650 mg, U nivers en 09-0717 Oral, ity of (TYLENOL) 00:45: 02:10 ONCE, 1 [place] tablet 650 00 :00 dose, On Medic al mg Diana Branch 09/06/22 at 1945, AYESHA TAKE 1 2021- No TABLET BY 2-29 MOUTH IN 00:00: THE MORNING 00 AND 1 TABLET AT BEDTIME acetaminoph 2021-0 2021- No 1000mg 1,000 mg, Univers en 10-02 0411 Oral, ity of (TYLENOL) 22:15: 23:27 ONCE, [...] Indication s: acute pain naproxen 2020-06 Yes [id number] 550mg Take 1 U nivers sodium 1-12 [...] Indication s: acute pain naproxen 2020-06 Yes [id number] 550mg Take 1 U nivers sodium 1-12 [...] Indication s: acute pain naproxen 2020-06 Yes [id number] 550mg Take 1 U nivers sodium 1-12 [...] Indication s: acute pain naproxen 2020-06 Yes [id number] 550mg Take 1 U nivers sodium 1-12 [...] Indication s: acute pain naproxen 2020-06 Yes [id number] 550mg Take 1 U nivers sodium 1-12 [...] Indication s: acute pain naproxen 2020-06 Yes [id number] 550mg Take 1 U nivers sodium 1-12 [...] Indication s: acute pain naproxen 2020-06 Yes [id number] 550mg Take 1 U nivers sodium 1-12 [...] Indication s: acute pain naproxen 2020-06 Yes [id number] 550mg Take 1 U nivers sodium 1-12 tablet by ity of (ANAPROX 00:00: mouth 2 [place] DS) 550 mg 00 (two) Medical tablet times Branch daily with meals. ibuprofen 2020-06 No 1mg 600 mg 1-11 tablet 00:00: 00 amoxicillin 2020-0 Yes [id number] 1{tbl} Take 1 Univers -clavulanat 2-20 tablet by ity of e 875-125 00:00: mouth [place] mg per 00 every 12 Medical tablet (twelve) Branch hours. amoxicillin 2020-0 Yes [id number] 1{tbl} Take 1 Univers -clavulanat 2-20 tablet by ity of e 875-125 00:00: mouth [place] mg per 00 every 12 Medical tablet (twelve) Branch hours. amoxicillin 2020-0 Yes [id number] 1{tbl} Take 1 Univers -clavulanat 2-20 tablet by ity of e 875-125 00:00: mouth [place] mg per 00 every 12 Medical tablet (twelve) Branch hours. amoxicillin 2020-0 Yes [id number] 1{tbl} Take 1 Univers -clavulanat 2-20 tablet by ity of e 875-125 00:00: mouth [place] mg per 00 every 12 Medical tablet (twelve) Branch hours. amoxicillin 2020-0 Yes [id number] 1{tbl} Take 1 Univers -clavulanat 2-20 tablet by ity of e 875-125 00:00: mouth [place] mg per 00 every 12 Medical tablet (twelve) Branch hours. amoxicillin 2020-0 Yes [id number] 1{tbl} Take 1 Univers -clavulanat 2-20 tablet by ity of e 875-125 00:00: mouth [place] mg per 00 every 12 Medical tablet (twelve) Branch hours. amoxicillin 2020-0 Yes [id number] 1{tbl} Take 1 Univers -clavulanat 2-20 tablet by ity of e 875-125 00:00: mouth [place] mg per 00 every 12 Medical tablet (twelve) Branch hours. amoxicillin 2020-0 Yes [id number] 1{tbl} Take 1 Univers -clavulanat 2-20 tablet by ity of e 875-125 00:00: mouth [place] mg per 00 every 12 Medical tablet (twelve) Branch hours. amoxicillin 2020-0 Yes [id number] 1{tbl} Take 1 Univers -clavulanat 2-20 tablet by ity of e 875-125 00:00: mouth [place] mg per 00 every 12 Medical tablet (twelve) Branch hours. amoxicillin 2020-0 Yes [id number] 1{tbl} Take 1 Univers -clavulanat 2-20 tablet by ity of e 875-125 00:00: mouth [place] mg per 00 every 12 Medical tablet (twelve) Branch hours. amoxicillin 2020-0 Yes [id number] 1{tbl} Take 1 Univers -clavulanat 2-20 tablet by ity of e 875-125 00:00: mouth [place] mg per 00 every 12 Medical tablet (twelve) Branch hours. amoxicillin 2020-0 Yes [id number] 1{tbl} Take 1 Univers -clavulanat 2-20 tablet by ity of e 875-125 00:00: mouth [place] mg per 00 every 12 Medical tablet (twelve) Branch hours. clindamycin 2020-0 2020- No [id number] 300mg Take 1 Univers 300 mg 2-20 -02 capsule by ity of capsule 00:00: 05:59 mouth 4 [place] 00 :00 (four) Medical times Branch daily for 10 days. methocarbam 2019-0 2020- No 1000mg 1,000 mg, Univers ol 07-23 Oral, ity of (ROBAXIN) 00:30: 23:39 ONCE, 1 [place] tablet 00 :00 dose, [facility] Medical 1,000 mg 07/22/19 at [facility] h 1830, Routine Keflex 500 2019-0 No 1mg mg capsule 07-23 00:00: 00 Bromfed DM 2019-0 No 5mg/5 2 mg-30 -30 mL mg-10 mg/5 00:00: mL oral 00 syrup ketorolac 2019-0 2020- No 30mg 30 mg, Unive rs (TORADOL) 07-23 Intramuscu ity of injection 00:00: 23:00 lar, ONCE, [place] 30 mg 00 :00 1 dose, Medical Wed Branch 07/22/19 at 1800, Routine
membership administrator approving Restricted medication : LISA MORFIN mupirocin 2 2019-0 No 1% % topical 07-16 ointment 00:00: 00 Keflex 500 2019-0 No 1mg mg capsule 07-16 00:00: 00 ketorolac 2020-0 2020- No 30mg 30 mg, Unive rs (TORADOL) 07-14 Intramuscu ity of injection 03:30: 02:57 lar, ONCE, [place] 30 mg 00 :00 1 dose, Medical Mon Branch 07/13/19 at 2130, AYESHA
[facility] Restricted medication : HENRY OWEN ketorolac 2020-0 2020- No [id number] 10mg Take 1 Univers 10 mg 07-13 tablet by ity of tablet 00:00: 05:59 mouth [place] 00 :00 every 8 Medical (eight) Branch hours for 5 days. mupirocin 2 2019-0 No 1% % topical 17 ointment 00:00: 00 ibuprofen 2019-0 No 1mg 800 mg -17 tablet 00:00: 00 Keflex 500 2019-0 No 1mg mg capsule 17 00:00: 00 traMADol 50 2020-0 Yes [id number] 50mg Take 1 Univers mg tablet 1-11 tablet by ity o f 00:00: mouth [place] 00 every 6 Medical (six) Branch hours as needed for Pain (scale 7-10). cephALEXin 2020-0 Yes [id number] 500mg Take 1 Univers (KEFLEX) 1-11 [id number] capsule by ity of 500 mg 00:00: mouth 4 [place] capsule 00 (four) Medical times Branch daily. traMADol 50 2020-0 Yes [id number] 50mg Take 1 Univers mg tablet 1-11 tablet by ity o f 00:00: mouth [place] 00 every 6 Medical (six) Branch hours as needed for Pain (scale 7-10). cephALEXin 2020-0 Yes [id number] 500mg Take 1 Univers (KEFLEX) 1-11 [id number] capsule by ity of 500 mg 00:00: mouth 4 [place] capsule 00 (four) Medical times Branch daily. traMADol 50 2020-0 Yes [id number] 50mg Take 1 Univers mg tablet 1-11 tablet by ity o f 00:00: mouth [place] 00 every 6 Medical (six) Branch hours as needed for Pain (scale 7-10). cephALEXin 2020-0 Yes [id number] 500mg Take 1 Univers (KEFLEX) 1-11 [id number] capsule by ity of 500 mg 00:00: mouth 4 [place] capsule 00 (four) Medical times Branch daily. traMADol 50 2020-0 Yes [id number] 50mg Take 1 Univers mg tablet 1-11 tablet by ity o f 00:00: mouth [place] 00 every 6 Medical (six) Branch hours as needed for Pain (scale 7-10). cephALEXin 2020-0 Yes [id number] 500mg Take 1 Univers (KEFLEX) 1-11 [id number] capsule by ity of 500 mg 00:00: mouth 4 [place] capsule 00 (four) Medical times Branch daily. cephALEXin 2020-0 Yes [id number] 500mg Take 1 Univers (KEFLEX) 1-11 [id number] capsule by ity of 500 mg 00:00: mouth 4 [place] capsule 00 (four) Medical times Branch daily. cephALEXin 2020-0 Yes [id number] 500mg Take 1 Univers (KEFLEX) 1-11 [id number] capsule by ity of 500 mg 00:00: mouth 4 [place] capsule 00 (four) Medical times Branch daily. cephALEXin 2020-0 Yes [id number] 500mg Take 1 Univers (KEFLEX) 1-11 [id number] capsule by ity of 500 mg 00:00: mouth 4 [place] capsule 00 (four) Medical times Branch daily. cephALEXin 2020-0 Yes [id number] 500mg Take 1 Univers (KEFLEX) 1-11 [id number] capsule by ity of 500 mg 00:00: mouth 4 [place] capsule 00 (four) Medical times Branch daily. cephALEXin 2020-0 Yes [id number] 500mg Take 1 Univers (KEFLEX) 1-11 [id number] capsule by ity of 500 mg 00:00: mouth 4 [place] capsule 00 (four) Medical times Branch daily. cephALEXin 2020-0 Yes [id number] 500mg Take 1 Univers (KEFLEX) 1-11 [id number] capsule by ity of 500 mg 00:00: mouth 4 [place] capsule 00 (four) Medical times Branch daily. cephALEXin 2020-0 Yes [id number] 500mg Take 1 Univers (KEFLEX) 1-11 [id number] capsule by ity of 500 mg 00:00: mouth 4 [place] capsule 00 (four) Medical times Branch daily. cephALEXin 2020-0 Yes [id number] 500mg Take 1 Univers (KEFLEX) 1-11 [id number] capsule by ity of 500 mg 00:00: mouth 4 [place] capsule 00 (four) Medical times Branch daily. traMADol 50 2020-0 Yes [id number] 50mg Take 1 Univers mg tablet 1-11 tablet by ity o f 00:00: mouth [place] 00 every 6 Medical (six) Branch hours as needed for Pain (scale 7-10). cephALEXin 2020-0 Yes [id number] 500mg Take 1 Univers (KEFLEX) 1-11 [id number] capsule by ity of 500 mg 00:00: mouth 4 [place] capsule 00 (four) Medical times Branch daily. traMADol 50 2020-0 Yes [id number] 50mg Take 1 Univers mg tablet 1-11 tablet by ity o f 00:00: mouth [place] 00 every 6 Medical (six) Branch hours as needed for Pain (scale 7-10). cephALEXin 2020-0 Yes [id number] 500mg Take 1 Univers (KEFLEX) 1-11 [id number] capsule by ity of 500 mg 00:00: mouth 4 [place] capsule 00 (four) Medical times Branch daily. traMADol 50 2019-0 Yes [id number] 50mg Take 1 Univers mg tablet 1-11 tablet by ity o f 00:00: mouth [place] 00 every 6 Medical (six) Branch hours as needed for Pain (scale 7-10). cephALEXin 2020-0 Yes [id number] 500mg Take 1 Univers (KEFLEX) 1-11 [id number] capsule by ity of 500 mg 00:00: mouth 4 [place] capsule 00 (four) Medical times Branch daily. traMADol 50 2019-0 2020- No [id number] 50mg Take 1 Univers mg tablet 1-11 11-12 tablet by ity of 00:00: 00:00 mouth [place] 00 :00 every 6 Medical (six) Branch hours as needed for Pain (scale 7-10). bacitracin 2019-0 2019- No [id number] Apply to Univers 500 07-04 affected ity of unit/gram 00:00: 05:59 area(s) 2 [place] ointment 00 :00 (two) Medical times Branch daily for 10 days. bacitracin 2019-0 2019- No [id number] Apply to Univers 500 07-04 affected ity of unit/gram 00:00: 05:59 area(s) 2 [place] ointment 00 :00 (two) Medical times Branch daily for 10 days. traMADol 50 2020-0 Yes [id number] 50mg Take 1 Univers mg tablet 1-07 tablet by ity o f 00:00: mouth [place] 00 every 6 Medical (six) Branch hours as needed for Pain (scale 7-10). traMADol 50 2020-0 Yes [id number] 50mg Take 1 Univers mg tablet 1-07 tablet by ity o f 00:00: mouth [place] 00 every 6 Medical (six) Branch hours as needed for Pain (scale 7-10). traMADol 50 2020-0 Yes [id number] 50mg Take 1 Univers mg tablet 1-07 tablet by ity o f 00:00: mouth [place] 00 every 6 Medical (six) Branch hours as needed for Pain (scale 7-10). traMADol 50 2020-0 Yes [id number] 50mg Take 1 Univers mg tablet 1-07 tablet by ity o f 00:00: mouth [place] 00 every 6 Medical (six) Branch hours as needed for Pain (scale 7-10). traMADol 50 2020-0 Yes [id number] 50mg Take 1 Univers mg tablet 1-07 tablet by ity o f 00:00: mouth [place] 00 every 6 Medical (six) Branch hours as needed for Pain (scale 7-10). traMADol 50 2020-0 Yes [id number] 50mg Take 1 Univers mg tablet 1-07 tablet by ity o f 00:00: mouth [place] 00 every 6 Medical (six) Branch hours as needed for Pain (scale 7-10). traMADol 50 2020-0 Yes [id number] 50mg Take 1 Univers mg tablet 1-07 tablet by ity o f 00:00: mouth [place] 00 every 6 Medical (six) Branch hours as needed for Pain (scale 7-10). traMADol 50 2020-0 2020- No [id number] 50mg Take 1 Univers mg tablet 1-07 11-12 tablet by ity of 00:00: 00:00 mouth [place] 00 :00 every 6 Medical (six) Branch hours as needed for Pain (scale 7-10). Dose 2019- No Unknown 0-01 00:00: 00 Depakote 2019-0 No 1mg 500 mg 2-19 tablet,nette 00:00: yed release 00 Trileptal 2019-0 No 2mg 300 mg 2-19 tablet 00:00: 00 folic acid 2019-0 No 1mg 1 mg tablet 1-17 00:00: 00 Dose 2017-1 No Unknown 2-18 00:00: 00 Depakote 2018-1 No 1mg 500 mg 2-18 tablet,nette 00:00: yed release 00 Trileptal 2017-06 No 2mg 300 mg 2-18 tablet 00:00: 00 Bactrim DS 2017-06 No 1mg 800 mg-160 2-18 mg tablet 00:00: 00 ARIPiprazol Yes 2mg Take 2 mg U nivers e (ABILIFY) 5-01 by mouth ity of 2 mg tablet 00:58: daily. [address] ARIPiprazol Yes 2mg Take 2 mg U nivers e (ABILIFY) 5-01 by mouth ity of 2 mg tablet 00:58: daily. [address] ARIPiprazol Yes 2mg Take 2 mg U nivers e (ABILIFY) 5-01 by mouth ity of 2 mg tablet 00:58: daily. [address] ARIPiprazol Yes 2mg Take 2 mg U nivers e (ABILIFY) 5-01 by mouth ity of 2 mg tablet 00:58: daily. [address] ARIPiprazol Yes 2mg Take 2 mg U nivers e (ABILIFY) 5-01 by mouth ity of 2 mg tablet 00:58: daily. [address] ARIPiprazol Yes 2mg Take 2 mg U nivers e (ABILIFY) 5-01 by mouth ity of 2 mg tablet 00:58: daily. [address] ARIPiprazol Yes 2mg Take 2 mg U nivers e (ABILIFY) 5-01 by mouth ity of 2 mg tablet 00:58: daily. [address] divalproex Yes 500mg Take 500 Un chris ER 5-01 mg by ity of (DEPAKOTE 00:58: mouth [place] ER) 500 mg 10 every 24 Medic al 24 hr (twenty-fo Branch tablet ur) hours. OXcarbazepi Yes Take by Uni vers ne 5-01 mouth. ity of (TRILEPTAL) 00:58: [place] 300 mg 10 [facility] divalproex Yes 500mg Take 500 Un chris [...] OXcarbazepi Yes Take by Uni vers ne 5- mouth. ity of (TRILEPTAL) 00:58: [place] 300 mg 10 [facility] ARIPiprazol Yes 2mg Take 2 mg U nivers e (ABILIFY) 4-30 by mouth ity of 2 mg tablet 19:58: daily. [address] ARIPiprazol Yes 2mg Take 2 mg U nivers e (ABILIFY) 4-30 by mouth ity of 2 mg tablet 19:58: daily. [address] ARIPiprazol Yes 2mg Take 2 mg U nivers e (ABILIFY) 4-30 by mouth ity of 2 mg tablet 19:58: daily. [address] ARIPiprazol Yes 2mg Take 2 mg U nivers e (ABILIFY) 4-30 by mouth ity of 2 mg tablet 19:58: daily. [address] ARIPiprazol Yes 2mg Take 2 mg U nivers e (ABILIFY) 4-30 by mouth ity of 2 mg tablet 19:58: daily. [address] ARIPiprazol 0 Yes 2mg Take 2 mg U nivers e (ABILIFY) 4-30 by mouth ity of 2 mg tablet 19:58: daily. [address] ARIPiprazol 0 Yes 2mg Take 2 mg U nivers e (ABILIFY) 4-30 by mouth ity of 2 mg tablet 19:58: daily. [address] ARIPiprazol 0 Yes 2mg Take 2 mg U nivers e (ABILIFY) 4-30 by mouth ity of 2 mg tablet 19:58: daily. [address] ARIPiprazol 0 Yes 2mg Take 2 mg U nivers e (ABILIFY) 4-30 by mouth ity of 2 mg tablet 19:58: daily. [address] divalproex Yes 500mg Take 500 Un [...] 00:00: unit/g-0.1 00 % topical cream Anusol-HC 2017-0 No 1mg 25 mg 4-05 rectal 00:00: suppository 00 Stool 2018-0 No 1mg Softener 4-05 100 mg 00:00: capsule 00 sulfamethox 2017-0 No 1mg azole 800 4-03 mg-trimetho 00:00: [...] 00 (two) Medical times Branch daily. hydrocortis 0 Yes Insert Univ ers one 2.5 % 7-10 into ity of rectal 00:00: rectum 2 [place] cream 00 (two) Medical times Branch daily. hydrocortis 0 Yes Insert Univ ers one 2.5 % 7-10 into ity of rectal 00:00: rectum 2 [place] cream 00 (two) Medical times Branch daily. hydrocortis 0 Yes Insert Univ ers one 2.5 % 7-10 into ity of rectal 00:00: rectum 2 [place] cream 00 (two) Medical times Branch daily. hydrocortis 2016-0 Yes Insert Univ ers one 2.5 % 7-10 into ity of rectal 00:00: rectum 2 [place] cream 00 (two) Medical times Branch daily. hydrocortis 0 Yes Insert Univ ers one 2.5 % [...] daily. Trileptal 2016-0 No 2mg 300 mg 8- tablet 00:00: 00 Depakote 2016-0 No 1mg 500 mg 8- tablet,nette 00:00: yed release 00 Abilify 2 2015-0 No 2mg mg tablet 8 00:00: 00 Anusol-HC 2016-0 No 1mg 25 mg 8-09 rectal 00:00: suppository 00 Stool 2015-0 No 1mg Softener 8 100 mg 00:00: capsule 00 pantoprazol 2014-0 No 1mg e 20 mg 3-04 tablet,nette 00:00: yed release 00 Immunizations Ordered Immunization Filled Immunization Date Status Commen ts Source Name Name Patrick AGID-Manoj 2022-01-08 Completed Vaccine 00:00:00 Patrick COVID-19 2020-09-27 Completed Vaccine 00:00:00 Patrick COVID-19 2020-08-26 Completed Vaccine 00:00:00 Vital Signs Vital Name Observation Time Observation Value Comments Source Height 2022-11-04 14:04:00 149.86 CM Weight 2022-11-04 14:04:00 73.02 KG Systolic blood 2022-09-24 17:32:00 130 mm[Hg] Univer sity of pressure [place] [facility] Diastolic blood 2022-09-24 17:32:00 85 mm[Hg] Unive rsity of pressure [place] [facility] Heart rate 2022-09-24 17:32:00 64 /min Universi ty of [place] [facility] Body temperature 2022-09-24 17:32:00 36.83 O[place] Univ ersity of [place] [facility] Respiratory rate 2022-09-24 17:32:00 18 /min Univ ersity of [place] [facility] Body weight 2022-09-24 17:32:00 74.844 kg Universi ty of [place] [facility] [place] BMI 2022-09-24 17:32:00 33.33 kg/m2 Universi ty of [facility] Oxygen saturation in 2022-09-24 17:32:00 99 /min University Arterial blood by [facility] Pulse oximetry Branch Systolic blood 2022-09-10 23:55:00 111 mm[Hg] Univer sity of pressure [place] [facility] Diastolic blood 2022-09-10 23:55:00 84 mm[Hg] Unive rsity of pressure [place] [facility] Heart rate 2022-09-10 23:55:00 105 /min Universi ty of [place] [facility] Body temperature 2022-09-10 23:55:00 37.33 [place] Univ ersity of [place] [facility] Respiratory rate 2022-09-10 23:55:00 19 /min Univ ersity of [place] [facility] Systolic blood 2022-09-10 01:44:00 126 mm[Hg] Univer sity of pressure [place] [facility] Diastolic blood 2022-09-10 01:44:00 81 mm[Hg] Unive rsity of pressure [place] [facility] Heart rate 2022-09-10 01:44:00 78 /min Universi ty of [place] [facility] [place] Body temperature 2022-09-10 01:44:00 36.56 [place] Univ ersity of [place] [facility] Respiratory rate 2022-09-10 01:44:00 16 /min Univ ersity of [place] [facility] Body weight 2022-09-10 01:44:00 79.379 kg Universi ty of [place] [facility] BMI 2022-09-10 01:44:00 35.35 kg/m2 Universi ty of [place] [facility] Oxygen saturation in 2022-09-10 01:44:00 100 /min University of Arterial blood by [facility] gracie Pulse oximetry Branch Systolic blood 2022-09-07 05:37:00 119 mm[Hg] Univer sity of pressure [place] [facility] Diastolic blood 2022-09-07 05:37:00 67 mm[Hg] Unive rsity of pressure [place] [facility] Heart rate 2022-09-07 05:37:00 79 /min Universi ty of [place] [facility] Respiratory rate 2022-09-07 05:37:00 16 /min Univ ersity of [place] [facility] Oxygen saturation in 2022-09-07 05:37:00 98 /min University of Arterial blood by [facility] Pulse oximetry Branch Body temperature 2022-09-06 23:05:00 36.78 [place] Univ ersity of [place] [facility] Body weight 2022-09-06 23:05:00 79.379 kg Universi ty of [place] [facility] BMI 2022-09-06 23:05:00 35.35 kg/m2 Universi ty of [place] [facility] Systolic blood 2021-10-02 20:55:00 111 mm[Hg] Univer sity of pressure [place] [facility] Diastolic blood 2021-10-02 20:55:00 70 mm[Hg] Unive rsity of pressure [place] [facility] Heart rate 2021-10-02 20:55:00 79 /min Universi ty of [place] [facility] Body temperature 2021-10-02 20:55:00 36.61 [place] Univ ersity of [place] [facility] Respiratory rate 2021-10-02 20:55:00 18 /min Univ ersity of [place] [facility] Body height 2021-10-02 20:55:00 149.9 cm Universi ty of [place] [facility] Body weight 2021-10-02 20:55:00 79.379 kg Universi ty of [place] [facility] BMI 2021-10-02 20:55:00 35.35 kg/m2 Universi ty of [place] [facility] Oxygen saturation in 2021-10-02 20:55:00 100 /min University of Arterial blood by [facility] gracie Pulse oximetry Branch Systolic blood 2021-05-05 19:20:00 102 mm[Hg] Univer sity of pressure [place] [facility] Diastolic blood 2021-05-05 19:20:00 48 mm[Hg] Unive rsity of pressure [place] [facility] Heart rate 2021-05-05 19:20:00 68 /min Universi ty [facility] Body temperature 2021-05-05 19:20:00 36.94 Oma [facility] [place] [facility] Respiratory rate 2021-05-05 19:20:00 18 /min [facility] [place] [facility] Body weight 2021-05-05 19:20:00 79.379 kg [facility] [place] [facility] BMI 2021-05-05 19:20:00 35.35 kg/m2 [facility] [place] [facility] Oxygen saturation in 2021-05-05 19:20:00 99 /min University of Arterial blood by [facility] Pulse oximetry Branch Systolic blood 2019-12-15 22:12:00 138 mm[Hg] Univer sity of [facility] Diastolic blood 2019-12-15 22:12:00 100 mm[Hg] Unive rsity of [facility] Heart rate 2019-12-15 22:12:00 77 /min [facility] [place] [facility] Body temperature 2019-12-15 22:12:00 37.06 Oma [facility] Respiratory rate 2019-12-15 22:12:00 20 /min [facility] Body weight 2019-12-15 22:12:00 79.379 kg [facility] BMI 2019-12-15 22:12:00 35.35 kg/m2 [facility] Oxygen saturation in 2019-12-15 22:12:00 100 /min [facility] of Arterial blood by [facility] Pulse oximetry Branch Systolic blood 2019-12-15 22:12:00 138 mm[Hg] Univer [facility]ity [facility] Diastolic blood 2019-12-15 22:12:00 100 mm[Hg] Unive rsity of [facility] Heart rate 2019-12-15 22:12:00 77 /min [facility] Body temperature 2019-12-15 22:12:00 37.06 Oma [facility] Respiratory rate 2019-12-15 22:12:00 20 /min [facility] Body weight 2019-12-15 22:12:00 79.379 kg [facility] [place] [facility] BMI 2019-12-15 22:12:00 35.35 kg/m2 [facility] [place] [facility] Oxygen saturation in 2019-12-15 22:12:00 100 /min [facility] by [place] [facility] Pulse oximetry Branch Respiratory rate 2019-10-25 23:43:00 18 /min [facility] [place] [facility] Body weight 2019-10-25 23:43:00 83.915 kg [facility] [place] [facility] BMI 2019-10-25 23:43:00 37.37 kg/m2 [facility] Respiratory rate 2019-10-25 23:43:00 18 /min [facility] Body weight 2019-10-25 23:43:00 83.915 kg [facility] [place] [facility] BMI 2019-10-25 23:43:00 37.37 kg/m2 [facility] [place] [facility] Systolic blood 2019-08-13 19:25:00 123 mm[Hg] Univer [facility]ity [facility] Diastolic blood 2019-08-13 19:25:00 88 mm[Hg] Unive rsity of [facility] Heart rate 2019-08-13 19:25:00 78 /min [facility] Body temperature 2019-08-13 19:25:00 36.56 Oma [facility] [place] [facility] Respiratory rate 2019-08-13 19:25:00 18 /min [facility] [place] [facility] Body height 2019-08-13 19:25:00 149.9 cm [facility] [place] [facility] Body weight 2019-08-13 19:25:00 90.719 kg [facility] BMI 2019-08-13 19:25:00 40.40 kg/m2 [facility] Oxygen saturation in 2019-08-13 19:25:00 100 /min [facility] by [place] [facility] Pulse oximetry Branch Systolic blood 2019-08-13 19:25:00 123 mm[Hg] Univer [facility]ity of [facility] [place] [facility] Diastolic blood 2019-08-13 19:25:00 88 mm[Hg] Unive rsity of [facility] Heart rate 2019-08-13 19:25:00 78 /min [facility] [place] [facility] Body temperature 2019-08-13 19:25:00 36.56 Oma [facility] [place] [facility] Respiratory rate 2019-08-13 19:25:00 18 /min [facility] [place] [facility] Body height 2019-08-13 19:25:00 149.9 cm [facility] [place] [facility] Body weight 2019-08-13 19:25:00 90.719 kg [facility] [place] [facility] BMI 2019-08-13 19:25:00 40.40 kg/m2 [facility] [place] [facility] Oxygen saturation in 2019-08-13 19:25:00 100 /min [facility] blood by [place] [facility] Pulse oximetry Branch Systolic blood 2019-07-23 00:20:15 120 mm[Hg] Univer [facility]ity [facility] [place] [facility] Diastolic blood 2019-07-23 00:20:15 74 mm[Hg] Unive rsity of [facility] Heart rate 2019-07-23 00:20:15 82 /min [facility] [place] [facility] Respiratory rate 2019-07-23 00:20:15 19 /min [facility] [place] [facility] Oxygen saturation in 2019-07-23 00:20:15 100 /min [facility] blood by [place] [facility] Pulse oximetry [place] Body temperature 2019-07-22 19:41:00 36.33 Oma [facility] [place] [facility] Body weight 2019-07-22 19:39:00 90.719 kg [facility] [place] [facility] BMI 2019-07-22 19:39:00 39.06 kg/m2 [facility] [place] [facility] Systolic blood 2019-07-23 00:20:15 120 mm[Hg] [facility]iver [facility]ity [facility] [place] [facility] Diastolic blood 2019-07-23 00:20:15 74 mm[Hg] Unive rsity of [facility] Heart rate 2019-07-23 00:20:15 82 /min [facility] [place] [facility] Respiratory rate 2019-07-23 00:20:15 19 /min [facility] [place] [facility] Oxygen saturation in 2019-07-23 00:20:15 100 /min [facility] Ar[place] blood by [place] [facility] Pulse oximetry Branch Body temperature 2019-07-22 19:41:00 36.33 Oma [facility] [place] [facility] [place] Body weight 2019-07-22 19:39:00 90.719 kg [facility] [place] [facility] BMI 2019-07-22 19:39:00 39.06 kg/m2 [facility] [place] [facility] Systolic blood 2019-07-14 03:33:00 127 mm[Hg] [facility] [place] [facility] [place] Diastolic blood 2019-07-14 03:33:00 88 mm[Hg] Unive [facility]ity of [facility] [place] [facility] [place] Heart rate 2019-07-14 03:33:00 79 /min [facility] [place] [facility] Respiratory rate 2019-07-14 03:33:00 16 /min Univ ersity of [facility] Oxygen saturation in 2019-07-14 03:33:00 97 /min [facility] Arterial blood by [facility] Pulse oximetry Branch Body weight 2019-07-14 02:16:00 90.719 kg [facility] BMI 2019-07-14 02:16:00 39.06 kg/m2 [facility] Body temperature 2019-07-14 02:15:00 36.78 Oma [facility] Body weight 2019-07-10 20:39:00 90.719 kg [facility] [place] [facility] BMI 2019-07-10 20:39:00 39.06 kg/m2 [facility] [place] [facility] Systolic blood 2019-01-21 23:34:00 133 mm[Hg] Univer sity of pressure [facility] Diastolic blood 2019-01-21 23:34:00 78 mm[Hg] [facility]ive [facility]ity of [facility] [place] [facility] [place] Heart rate 2019-01-21 23:34:00 66 /min [facility] Body temperature 2019-01-21 23:34:00 36.94 Oma [facility] Respiratory rate 2019-01-21 23:34:00 18 /min [facility] Body height 2019-01-21 23:34:00 147.3 cm [facility] Body weight 2019-01-21 23:34:00 68.04 kg [facility] BMI 2019-01-21 23:34:00 31.35 kg/m2 [facility] [place] [facility] [place] Oxygen saturation in 2019-01-21 23:34:00 100 /min [facility] Arterial blood by [facility] Pulse oximetry Branch Systolic blood 2019-01-21 23:34:00 133 mm[Hg] Univer sity of pressure [facility] Diastolic blood 2019-01-21 23:34:00 78 mm[Hg] Unive rsity of pressure [facility] Heart rate 2019-01-21 23:34:00 66 /min Universi ty [facility] Body temperature 2019-01-21 23:34:00 36.94 Oma Univ ersity of [facility] Respiratory rate 2019-01-21 23:34:00 18 /min [facility] height 2019-01-21 23:34:00 [facility]3 [facility] Body weight 2019-01-21 23:34:00 68.04 kg Universi [facility] BMI 2019-01-21 23:34:00 31.35 kg/m2 [facility] Oxygen saturation in 2019-01-21 23:34:00 100 /min [facility] of Arterial blood by [facility] Pulse oximetry Branch BP Systolic 2022-07-17 15:20:00 [...] COMP. METABOLIC PANEL 2022-09-07 01:38:00 Tayo Boyd [facility] ([id number]) Medical [place] CBC WITH DIFF 2022-09-07 01:38:00 Tayo Boyd [facility] URINALYSIS 2022-09-07 01:38:00 Tayo Boyd [facility] XR ANKLE <3 VW LEFT 2022-09-07 00:56:00 Tayo Boyd [facility] XR FOOT <3 VW LEFT 2022-09-07 00:56:00 Tayo Boyd [facility] CONSENT/REFUSAL FOR 2022-09-06 22:08:37 Doctor Unassigned, No Un [facility] DIAGNOSIS AND TREATMENT Name Medical Branch CT CERVICAL SPINE WO 2021-10-02 21:53:00 Javed Frank [facility] CONTRAST [facility] Branch CT LUMBAR SPINE WO 2021-10-02 21:53:00 Javed Frank [facility] CONTRAST [facility] CT THORACIC SPINE WO 2021-10-02 21:53:00 Javed Frank [facility] XR FOREARM 2 VW RIGHT 2021-05-05 20:03:34 Deon Nunez [facility] XR WRIST 3+ VW RIGHT 2021-05-05 20:03:34 Deon Nunez [facility] NOTICE OF PRIVACY 2021-05-05 19:12:00 Doctor Unassigned, No [facility] Name [facility] CONSENT/REFUSAL FOR 2021-05-05 19:11:19 Doctor Unassigned, No Un [facility] [place] [facility] Name [facility] CONSENT/REFUSAL FOR 2019-08-13 19:17:22 Doctor Unassigned, No Un [facility] [place] [facility] Name [facility] CT HEAD WO CONTRAST 2019-07-22 22:24:37 Ofe Samayoa [facility] XR CERVICAL SPINE 2 VW 2019-07-22 21:59:59 Ofe Samayoa [facility] CBC WITH DIFFERENTIAL 2019-07-22 21:34:00 Ofe Samayoa [facility] XR CERVICAL SPINE 2 VW 2019-07-14 02:43:00 Henry Owen [facility] XR ELBOW <3 VW LEFT 2019-07-14 02:43:00 Henry Owen [facility] XR KNEE <3 VW RIGHT 2019-07-14 02:43:00 Henry Owen [facility] XR SHOULDER <2 VW LEFT 2019-07-14 02:43:00 Henry Owen [facility] [id number] Ecg Routine Ecg 2017-09-24 00:00:00 W/least 12 Lds W/i r Plan of Care Planned Activity Planned Date Details Comments Source Goal Plan of Care Note [code = 90185-0] Goal Plan of Care Note [code = 74608-4] Goal Plan of Care Note [code = 86609-1] Goal Plan of Care Note [code = 22389-4] Goal Plan of Care Note [code = 30813-9] Goal Plan of Care Note [code = 71788-2] Goal Plan of Care Note [code = 12987-9] Goal Plan of Care Note [code = 57541-8] Goal Plan of Care Note [code = 48530-7] Goal Plan of Care Note [code = 58960-5] Goal Plan of Care Note [code = 53017-0] Goal Plan of Care Note [code = 73290-0] Goal Plan of Care Note [code = 85264-5] Goal Plan of Care Note [code = 03851-1] Goal Plan of Care Note [code = 57545-8] Goal Plan of Care Note [code = 21150-2] Goal Plan of Care Note [code = 85960-1] Goal Plan of Care Note [code = 59170-0] Goal Plan of Care Note [code = 88850-5] Goal Plan of Care Note [code = 66148-4] Goal Plan of Care Note [code = 96014-9] Goal Plan of Care Note [code = 30955-3] Goal Plan of Care Note [code = 93862-4] Goal Plan of Care Note [code = 38335-2] Goal Plan of Care Note [code = 31732-1] Goal Plan of Care Note [code = 33307-2] Goal Plan of Care Note [code = 31371-3] Goal Plan of Care Note [code = 64031-9] Goal Plan of Care Note [code = 21442-7] Encounters Start End Encounter Admission Attending Care Care Encounter Source Date/Time Date/Time Type Type Clinicians Facility Department ID 2022-11-13 Inpatient [facility] [id number] [facility] 13:10:28 [id number] [place] 2022-11-05 Inpatient TEX[place] TEX[place] [id number] [place] 09:23:13 [id number] [place] 2023-01-09 2023-01-09 Outpatient [facility] [id number] Henry 17:11:26 17:11:26 0719 [place] 2022-11-04 2022-11-05 Emergency Linda PAIGE [facility] [address] [id number] [facility] 14:04:00 11:09:00 JESS argueta [place] 2022-09-24 2022-09-24 Emergency YUDITH Snow [id number] [facility] 12:33:00 12:51:00 Heri PRATHER 350.1.13.10 i Miguel 4.2.7.2.686 [facility] [id number] [facility] 084 Branch 2022-09-22 2022-09-22 Nurse Marisa COX [id number] Univers 00:00:00 00:00:00 Triage Madhavi barclay [id number] ity of [facility] 4.2.7.2.686 Dinesh as [id number] [facility] 019 Branch 2022-09-18 2022-09-19 Inpatient EM Marly Mendenhall [facility] OBSE [id number] [facility] 10:09:00 14:28:00 25 [facility] 2022-09-16 2022-09-17 Emergency EM Guero, [facility] FABI [id number] [facility] 22:50:00 01:40:00 Asim 33 [facility] 2022-09-14 2022-09-15 Inpatient EM Andrei, [facility] TELE [id number] [facility] 14:52:00 14:00:00 Vladimir 75 [facility] 2022-09-13 2022-09-13 Emergency EM Jose C, [facility] FABI [id number] [facility] 09:34:00 13:00:00 Brad 75 [facility] 2022-09-10 2022-09-11 Emergency EM Donato, [facility] [id number] [facility] 23:39:00 11:28:00 Russel 51 [facility] 2022-09-10 2022-09-10 Emergency Shelbie, Lisa S [place] 1.2.84 0.114 [id number] Univers 18:57:00 20:20:00 Sandrita Key [facility] 350.1.13.10 ity [facility].2.[id number] [address] Branch 2022-09-10 2022-09-10 Emergency [facility] E[facility] [id number] Univers 18:57:00 20:20:00 SANDRITA [facility] 2022-09-09 2022-09-09 Emergency [facility] E[facility] [id number] Univers 20:45:00 22:46:00 SANDRITA [facility] 2022-09-09 2022-09-09 Emergency Key, TRAUMA [id number] Univers 20:45:00 22:46:00 [facility] [id number] [place] [id number] [facility] 014 [place] 2022-09-06 2022-09-07 Emergency X VASUT, [facility] ERT [id number] Univers 18:09:00 00:51:00 TAYO ity [facility] 2022-09-06 2022-09-07 Emergency Vasut, TRAU[place] [id number] Univers 18:09:00 00:51:00 Tayo [facility] 350.1.13.10 it [place] [id number] [facility] 014 [place] 2022-08-21 2022-08-21 Outpatient SFA SFA [id number] Henry 14:11:33 14:11:33 0228 [place] 2022-07-17 2022-07-17 Outpatient SFA SFA [id number] Henry 15:03:48 15:03:48 0124 F [place] 2022-07-17 2022-07-17 Outpatient [id number] 00:00:00 00:00:00 Visit [id number] 2021-10-02 2021-10-02 Emergency X ZAC, [facility] ERT [id number] Univers 15:56:00 19:00:00 JAVED cameroncindy [facility] 2021-10-02 2021-10-02 Emergency Zac, [facility] 1.2.840.114 [id number] Univers 15:56:00 19:00:00 Javed PRATHER 350.1.13.10 i ty of [place] [id number] [facility] 084 [place] 2021-05-05 2021-05-05 Emergency X [facility] ERT [id number] Univers 13:22:00 14:48:00 DEON thacker [facility] 2021-05-05 2021-05-05 Emergency , [facility] [id number] [id number] Univers 13:22:00 14:48:00 Deon ALBERTLOGAN 350.1.13.10 i ty of [facility] 4.2.7.2.686 [facility] [id number] [place] 486444 Branch 2021-05-05 2021-05-05 Orders Doctor KENNY 1.2.840.114 [id number] Univers 00:00:00 00:00:00 Only Unassigned, ROCÍO 350.1.13.10 ity of [facility] 4.2.7.2.686 [facility] [id number] [place] [address] Branch 2019-12-15 2019-12-15 Emergency Kp Gilliland [facility] 1.2.840.114 [id number] Univers 17:11:56 18:04:00 Marissa Lisa 350.1.13.10 i ty of [place] 4.2.7.2.686 [facility] [id number] [place] [address] Branch 2019-12-15 2019-12-15 Emergency Kp Gilliland [facility] 1.2.840.114 [id number] 17:11:56 18:04:00 Marissa Prather 350.1.13.10 [place] 4.2.7.2.686 [place] [id number] [facility] 2019-12-15 2019-12-15 Emergency X Kp GILLILAND [facility] ERT [id number] Univers 17:11:56 17:11:56 ity of [facility] 2019-10-25 2019-10-25 Emergency Paul, [facility] [id number] Univers 18:31:31 19:21:00 Kristin Prather 350.1.13.10 i ty of [place] 4.2.7.2.686 [facility] [id number] [place] [address] Branch 2019-10-25 2019-10-25 Emergency Paul, [facility] 1.2.883.441 [id number] 18:31:31 19:21:00 Kristin Prather 350.1.13.10 [place] 4.2.7.2.686 [place] [id number] [facility] 2019-10-25 2019-10-25 Emergency X PAUL [facility] ERT [id number] Univers 18:31:31 18:31:31 CYNISE ity of [facility] 2019-08-13 2019-08-13 Emergency [facility] [id number] Univers 13:30:00 14:36:00 Floridalma Prather 350.1.13.10 i ty of [place]2.[place] [id number] [place] 486444 [place] 2019-08-13 2019-08-13 Emergency [facility] ERT [id number] Univers 13:30:00 14:36:00 FLORIDALMA itcindy [facility] 2019-08-13 2019-08-13 Emergency [facility] [id number] 13:30:00 14:36:00 Floridalma Prather 350.1.13.10 [place] 4.2.7.2.686 [place] [id number] 2019-07-22 2019-07-22 Emergency [facility] ERT [id number] Univers 13:42:11 19:02:00 LISA ity [facility] 2019-07-22 2019-07-22 Emergency Unknown, Attending [place] 1.2.8 40.114 [id number] Univers 13:42:11 19:02:00 Lisa Morfin S CENTER 350.1.13.10 [place] [id number] [address] 2019-07-22 2019-07-22 Emergency Unknown, Attending TRAU[place] 1.2.8 40.114 [id number] 13:42:11 19:02:00 Lisa Morfin S CENTER 350.1.13.10 4.2.7.2.686 [id number] 2019-07-13 2019-07-13 Emergency [facility] ERT [id number] Univers 20:17:19 21:48:00 HENRY ity [facility] 2019-07-13 2019-07-13 Emergency Lexie, TRAU[place] [id number] Univers 20:17:19 21:48:00 Henry CENTER 350.1.13.10 it [place] [id number] [address] 2019-07-10 2019-07-10 Emergency [facility] ERT [id number] Univers 14:26:03 16:33:00 DEBBIE thacker [facility] 2019-07-10 2019-07-10 Emergency [facility] 1.2.840.114 [id number] Univers 14:26:03 16:33:00 Debbie Babb Lisa 350.1.13.10 ity [facility] 4.2.7.2.[address] [place] [id number] 2019-07-04 2019-07-04 Emergency X SHELBIE [facility] ERT [id number] Univers 19:09:02 22:51:00 LISA thacker [facility] 2019-06-30 2019-06-30 Emergency X [facility] ERT [id number] Univers 10:33:08 13:10:00 DEON thacker [facility] 2019-05-25 2019-05-25 Emergency X [facility] ERT [id number] Univers 11:58:19 15:37:00 DEON thacker [facility] 2019-04-09 2019-04-09 Emergency [facility] ERT [id number] Univers 22:29:37 23:28:00 FLORIDALMA thacker [facility] 2019-01-21 2019-01-21 [facility] [id number] Univers 18:38:01 19:59:00 Le Prather 350.1.13.10 [facility] 4.2.7.2[facility] [place] [id number] 2019-01-21 2019-01-21 Emergency [facility] 1.2.054.862 [id number] 18:38:01 19:59:00 Le Prather 350.1.13.[address] [place] [address] [place] [address] [id number] Results Test Description Test Time Test [...] 200 ng/mL Opiates 300 ng/mL URINALYSIS WITH [id number] 04:56:00 Test Item Value Reference Range Interpretation [...] (test code = USPERM) /HPF NONE URINE [id number] 04:53:00 Test Item Value Reference Range Interpretation [...] the FDA and the [employer] of the [employer] (CAP) are more stringent than those required for this test. Therefore, the result should be interpreted with caution and close attention to other clinical and epidemiological data [id number] 16:00:00 Test Item Value Reference Range Interpretation Comments SALICYLATE (test code = 94B) <3.0 mg/dL 15.0-30.0 L LIVER [id number] 15:49:00 Test Item Value Reference Range Interpretation [...] IU/L See_Comment [Automated message] 30A) The system [employer] generated this result transmitted ref erence range: <=33. Th e reference range was not used to interpr et this result as normal/abnormal . ALT (test code = <7 IU/L 10-49 L 31A) [id number] 15:48:00 Test Item Value Reference Range Interpretation Comments ACETAMINPH (test code = 94M) <0.2 mg/dL 1.2-2.5 L ALCOHOL BLOOD (ETOH)2022-11-04 15:48:00 Test Item Value Reference Range Interpretation Comments ETOH (test code = ETHANOL HALC) The result is to be used only for medical purposes ALCOHOL (test <10 mg/dL See_Comment [Automated me ssage] code = 56A) The system [employer] generated this result transmit isabel reference range : <=10. The refer ence range was not u sed to interpret th is result as normal/abnormal . AMMONIA [id number] 15:48:00 Test Item Value Reference Range Interpretation [...] (test code = MDIFF) NO BASIC METABOLIC [id number] 15:31:00 Test Item Value Reference Range Interpretation Comments GLUCOSE (test code 94 mg/dL 75-100 = 06D) SODIUM (test code 136 mmol/L 136-145 = 01A) POTASSIUM (test 3.9 mmol/L 3.6-5.1 code = 01B) CHLORIDE (test 104 mmol/L 98-107 code = 04A) CO2 (test code = 28 mmol/L 20-31 02A) ANION GAP (test 7.9 mmol/L code [...] as normal/abnormal . 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 Old healed fractures of the distal tibia and fibular noted.Soft tissues: Unremarkable.IMPRESSION: No acute findings.Electronically signed by: Nikko Santiago MD 11/04/2022 3:10 PM CDT [id number] BEDSIDE [id number] 11:51:00 Test Item Value Reference Range Interpretation Comments GLUCOSE BEDSIDE TESTING (test code = 79 MG/DL 70-119 N GLUBED) GLUCOSE BEDSIDE [id number] 06:23:00 Test Item Value Reference Range Interpretation Comments GLUCOSE BEDSIDE TESTING (test code = 80 MG/DL 70-119 N GLUBED) BASIC METABOLIC [id number] 05:12:00 Test Item Value Reference Range Interpretation [...] (test code = MG Index/DL The system [employer]) generated this result transmitted ref erence range: 1 NORMAL . The reference range was not used to int erpret this result as normal/abnormal . INDEX ICTERIC 1 NORMAL <2 MG See_Comment [Automated message] (test code = Index/DL The system [employer]) generated this result transmitted ref erence range: 1 NORMAL . The reference range was not used to int erpret this result as normal/abnormal . INDEX LIPEMIA 1 NORMAL <50 See_Comment [Automated me ssage] (test code = MG Index/DL The system [employer]) generated this result transmitted ref erence range: [...] <2.0 indicates None DetectedPerform ed At: [facility] [address] [id number] keven Argueta MD Ph:[phone] GLUCOSE BEDSIDE [id number] 19:51:00 Test Item Value Reference Range Interpretation Comments GLUCOSE BEDSIDE TESTING (test code 129 MG/DL 70-119 H = GLUBED) OSMOLALITY [id number] 17:56:00 Test Item Value Reference Range Interpretation Comments OSMOLALITY SERUM (test code = 269 mOsm/kg 275-300 L OSMO) THYROID STIMULATING [id number] 17:56:00 Test Item Value Reference Range Interpretation Comments THYROID STIMULATING HORMONE 4.190 mc IU/ML 0.340-4.820 N (test code = TSH) GLUCOSE BEDSIDE [id number] 15:49:00 Test Item Value Reference Range Interpretation Comments GLUCOSE BEDSIDE TESTING (test code = 86 MG/DL 70-119 N GLUBED) CREATINE KINASE (CK)2022-09-18 14:33:00 Test Item Value Reference Range Interpretation Comments CREATINE KINASE (CK) (test code = 145 Unit/L 26-192 N CK) VALPROIC ACID (DEPAKENE)2022-09-18 14:26:00 Test Item Value Reference Range Interpretation Comments VALPROIC ACID (DEPAKENE) (test 37.5 mcG/ML 50.0-100.0 L code = VALP) [id number] 14:26:00 Test Item Value Reference Range Interpretation Comments AMMONIA (test code = AMM) 29.0 mcMOL/L 11.0-32.0 N GLUCOSE BEDSIDE [id number] 11:51:00 Test Item Value Reference Range Interpretation Comments GLUCOSE BEDSIDE TESTING (test code = 88 MG/DL 70-119 N GLUBED) GLYCOSYLATED HEMOGLOBIN (HA1C)2022-09-18 06:53:00 Test Item Value Reference Range Interpretation Comments GLYCOSYLATED HEMOGLOBIN (HA1C) 5.2 % IS-A1C 4.5-5.6 N (test code = GLYHGB) ESTIMATED AVERAGE [id number] 06:53:00 Test Item Value Reference Range Interpretation [...] interpret this result as normal/abnormal . UR [id number] 21:28:00 Test Item Value Reference Range Interpretation Comments UR SODIUM RANDOM 93 mmol/L 40-200 N (test code = JESUSITA) UR POTASSIUM RANDOM 54.8 mmol/L 25-125 N NO ESTAB LISHED NORMAL (test code = KU) RANGES FOR RANDOM SPECIMENS. UR CHLORIDE RANDOM 164 mmol/L 110-150 H (test code = CLU) UR OSMOLALITY [id number] 21:28:00 Test Item Value Reference Range Interpretation Comments UR OSMOLALITY RANDOM (test code = 475 mOsm/kg 100-1400 N OSMOU) CBC W/O [id number] 20:05:00 Test Item Value Reference Range Interpretation [...] = 9.5 fL 6.8-11.2 N MPV) LACTIC [id number] 19:35:00 Test Item Value Reference Range Interpretation Comments LACTIC ACID (test code = LACT) 1.0 mmol/L 0.4-2.0 N HCG SERUM [id number] 19:31:00 Test Item Value Reference Range Interpretation Comments HCG SERUM QUAL (test code = Negative SCREEN NEG HCGQL) - CT HEAD/BRAIN W/O [id number] 18:59:00 [facility] 1975 Sex: F Patient Name: BHUMIKA JONES Unit No: [id number] EXAMS: CPT CODE: [id number] CT HEAD/BRAIN W/O [id number] Location: H3 CT head, conducted on 09/17/22 [...] Samayoa MD Dictated Date/Time: 09/17/2022 (1858) Technologist: VERO Marie(Abner)(CT) CTDI: DLP: Trnscrpt: 09/17/2022 (1859) [email or web address] DENIZ Lugo NAME: ROBERT[address] PHYS: Valentina [place] [address] : 1975 AGE: 47 SEX: F LOC: MITCHELLED 20 PHONE #: [phone] EXAM DATE: 09/17/2022 STATUS: ADM IN FAX #: [phone] RAD #: D/C DT PAGE 1 Signed Report Patient Name: KRUNAL JONESPCION Unit No: [id number] EXAMS: CPT CODE: [id number] CT HEAD/BRAIN W/O CONT 09737 (Continued) Orig Print D/T: S: 09/17/2022 (190) DENIZ Lugo NAME: [address] PHYS: Valentina [place] [address] : 1975 AGE: 47 SEX: F LOC: B.ERMED 20 PHONE #: [phone] EXAM DATE: 09/17/2022 STATUS: ADM IN FAX #: [phone] RAD #: D/C DT PAGE 2 Signed ReportURINALYSIS [id number] 16:28:00 Test Item Value Reference Range Interpretation [...] code = SQU) DRUGS OF ABUSE SCREEN [id number] 16:28:00 Test Item Value Reference Interpretation Comments [...] this result as normal/abnormal . TROP-I HIGH [id number] 16:26:00 Test Item Value Reference Range Interpretation [...] URLs may vary b ymethod. BASIC METABOLIC [id number] 16:25:00 Test Item Value Reference Range Interpretation [...] (test code = MG Index/DL The system [employer]) generated this result transmitted ref erence range: 1 NORMAL . The reference range was not used to int erpret this result as normal/abnormal . INDEX ICTERIC 1 NORMAL <2 MG See_Comment [Automated message] (test code = Index/DL The system [employer]) generated this result transmitted ref erence range: 1 NORMAL . The reference range was not used to int erpret this result as normal/abnormal . INDEX LIPEMIA 1 NORMAL <50 See_Comment [Automated me ssage] (test code = MG Index/DL The system [employer]) generated this result transmitted ref erence range: 1 NORMAL . The reference range was not used to int erpret this result as normal/abnormal . HEPATIC FUNCTION [id number] 16:25:00 Test Item Value Reference Range Interpretation [...] code = 92 Unit/L 26-192 N CK) [id number] 16:25:00 Test Item Value Reference Range Interpretation Comments LIPASE (test code = LIP) 57 Unit/L 114-286 L - CT HEAD/BRAIN W/O [id number] 00:32:00 [facility] : 1975 Sex: F Patient Name: BHUMIKA JONES Unit No: [id number] EXAMS: CPT CODE: [id number] CT HEAD/BRAIN W/O CONT 06348 EXAM: - CT HEAD/BRAIN W/O CONT LOCATION: H57 HISTORY: 47 years-year old Female with sz TECHNIQUE: Computerized tomography images from the skull base to the vertex were obtained. Coronal and sagittal reformatted images are provided. This exam was performed according to our departmental dose-optimization program, which includes automated exposure control, adjustment of the mA and/or kV according to patient size and/or use of iterative reconstruction technique COMPARISON: 09/14/2022 FINDINGS: Brain: The brain parenchyma is unremarkable. There is no evidence of an acute territorial infarct. There is no mass effect, midline shift, or parenchymal edema. Ventricles/Extra-axial spaces: There is noacute intracranial hemorrhage or extra-axial fluid collection. The ventricles are unremarkable. No basal cistern effacement. Bones: There is no evidence of acute displaced calvarial fracture. Sinuses:The visualized paranasal sinuses and mastoid air cells are clear. Soft Tissues: Unremarkable. Other:None. IMPRESSION: 1. No CT evidence of acute intracranial abnormality. at 0032 Reported and signed by: Jess Iglesias MD CC: Dictated Date/Time: 09/17/2022 (31) Technologist: Terry August CTDI: DLP: Trnscrpt: 09/17/2022 (31) [email or web address] DENIZ Lugo NAME: ROBERT[address] PHYS: Deirdre - [place]im [place] [address] : 1975 AGE: 47 SEX: F LOC: B.ERS PHONE #: [phone] EXAM DATE: 09/16/2022 STATUS: REG ER FAX #: [phone] RAD #: D/C DT PAGE 1 Signed Report Patient Name: KRUNAL JONESPCION Unit No: [id number] EXAMS: CPT CODE: [id number] CT HEAD/BRAIN W/O CONT 47556 (Continued) Orig Print D/T: S: 09/17/2022 (003) DENIZ Lugo NAME: ROBERT[address] PHYS: IGNACIOJorden - [place]im [place] [address] : 1975 AGE: 47 SEX: F LOC: B.ERS PHONE #: [phone] EXAM DATE: 09/16/2022 STATUS: REG ER FAX #: [phone] RAD #: D/C DT PAGE 2 Signed ReportTROP-I HIGH [id number] 00:13:00 Test Item Value Reference Range Interpretation [...] URLs may vary b ymethod. COMPREHENSIVE METABOLIC [id number] 00:11:00 Test Item Value Reference Range Interpretation [...] (test code = MG Index/DL The system [employer]) generated this result transmitted ref erence range: [...] this result as normal/abnormal . CBC W/AUTO [id number] 23:59:00 Test Item Value Reference Range Interpretation [...] 0.0-0.05 N NRBC#) - XR CHEST 1 [id number] 23:34:00 [facility] : 1975 Sex: F [place]: St: PRE -- Patient Name: BHUMIKA JONES Unit No: [id number] EXAMS: CPT CODE: [id number] XR CHEST 1 V 47882 EXAMINATION: - XR CHEST 1 V CLINICAL INDICATION: Female, 47 years year old with cough COMPARISON: Chest September 14, 2022 FINDINGS: Single view(s) of the chest submitted. Support Devices: None. Heart: Cardiac deisi houette is normal in size. Mediastinum: Mediastinal contours are normal. Lungs: Pulmonary vessels are normal in size. Lungs are well aerated and clear. Pleura: No pleural effusion is identified. No pneumothorax is present. Bones: Visualized skeleton is normal. IMPRESSION: No acute cardiopulmonary disease. at 2334 Reported and signed by: Flo Jansen MD CC: Dictated Date/Time: 09/16/2022 (5909)Technologist: Muna Monet Transcribed Date/Time: 09/16/2022 (816) By: [email or web address] Orig Print D/T: S: 09/16/2022 (2552) DENIZ Lugo NAME: KADEN [address] PHYS: YASMIN - Asim Jack MD, [place] [address] : 1975 AGE: 47 SEX: F LOC: B.ERS PHONE #: [phone] EXAM DATE: 09/16/2022 STATUS: PRE ER FAX #: [phone] RAD NO: DC Dt: PAGE 1 Signed ReportCARBAMAZEPINE (TEGRETOL) 2022-09-15 06:12:00 Test Item Value Reference Range Interpretation Comments CARBAMAZEPINE 1.5 ug/mL 4.0-12.0 L In conjunctio n with (TEGRETOL) (test other antie pileptic code = CARB) drugs Therapeut ic 4.0 - 8.0 Toxicity 9 .0 - 12.0 Carbamazepine a lone Therapeutic 8.0 - 12.0 Detection Limit = 2.0 <2.0 indicates None DetectedPerform ed At: [facility] [address] [id number] keven Argueta MD Ph:[phone] VALPROIC ACID (DEPAKENE)2022-09-15 06:12:00 Test Item Value Reference Range Interpretation Comments VALPROIC ACID (DEPAKENE) (test 80.6 mcG/ML 50.0-100.0 N code = VALP) COMPREHENSIVE METABOLIC [id number] 06:00:00 Test Item Value Reference Range Interpretation [...] (test code = MG Index/DL The system [employer]) generated this result transmitted ref erence range: [...] this result as normal/abnormal . CBC W/AUTO [id number] 05:37:00 Test Item Value Reference Range Interpretation [...] 0.00 K/mm3 0.0-0.05 N NRBC#) GLUCOSE BEDSIDE [id number] 20:03:00 Test Item Value Reference Range Interpretation Comments GLUCOSE BEDSIDE TESTING (test code 117 MG/DL 70-119 N = GLUBED) DRUGS OF ABUSE SCREEN [id number] 11:42:00 Test Item Value Reference Interpretation Comments [...] as normal/abnormal . - CT HEAD/BRAIN W/O [id number] 11:37:00 [facility] : 1975 Sex: F Patient Name: BHUMIKA JONES Unit No: [id number] EXAMS: CPT CODE: [id number] CT HEAD/BRAIN W/O CONT 42568 EXAMINATION: - CT HEAD/BRAIN W/O CONT COMPARISON: None HISTORY: Seizure LOCATION CODE: C3 TECHNIQUE: CT of the Brain without contrast. Axial non contrast images of the brain were obtained from the skull base to the vertex which were reviewed in bone and soft tissue algorithms. Coronal and sagit magui reformatted images were also submitted for review [...] CASTELLANO CTDI: DLP: Trnscrpt: 09/14/2022 (1137) t.[email or web address] [facility] [place] NAME: BHUMIKA JONES [facility] PHYS: Vladimir Menchaca MD [address] [place], [place] [address]VD : 1975 AGE: 47 SEX: F [place] [address] LOC: NEHA Cintron PHONE #: [phone] EXAM DATE: 09/14/2022 STATUS: ADM IN FAX #: [phone] RAD #: D/C DT PAGE 1 Signed Report Patient Name: BHUMIKA JONES Unit No: [id number] EXAMS: CPT CODE: [id number] CT HEAD/BRAIN W/O CONT 57643 (Continued) Orig Print D/T: S: 09/14/2022 (1140) DENIZ Lugo NAME: BHUMIKA JONES [facility] PHYS: Vladimir Menchaca MD [address] [facility] : 1975 AGE: 47 SEX: F [place], [place] [address] LOC: NEHA 10PHONE #: [phone] EXAM DATE: 09/14/2022 STATUS: ADM IN FAX #: [phone] RAD #: D/C DT PAGE 2Signed ReportPT AND PTT 2022-09-14 06:51:00 Test Item [...] prevention in p rosthetic heart 3.0-5.4 A [place] mortality reduc tion THROMBOPLASTIN TIME 34.6 SECONDS 24-37.7 N THERAPEU TIC RANGE FOR PARTIAL (test code UNFRACTIO NATED HEPARIN = = PTT) 50.5-83.6 SEC T his test is not recommen ded to monitor low molecularweight heparin or danaparoid. Order LMWH test COLLECTION THROUGH LINES THAT HAVE BEEN PREVIOUSLY FLUS HEDWITH HEPARIN SHOULD BE AVOIDED DUE TO POSSIBLE HEPARINCONTAMIN ATION HCG SERUM [id number] 06:51:00 Test Item Value Reference Range Interpretation [...] 268 Unit/L 26-192 H CK) CBC W/AUTO [id number] 03:43:00 Test Item Value Reference Range Interpretation [...] = 0.00 K/mm3 0.0-0.05 N NRBC#) URINALYSIS [id number] 03:41:00 Test Item Value Reference Range Interpretation [...] /LPF NONE MUCU) - XR CHEST 2 [id number] 02:06:00 [facility] : 1975 Sex: F FAX: Suleman Carvalho [phone] [place]: E St: REG Patient Name: BHUMIKA JONES Unit No: [id number] EXAMS: CPT CODE: [id number] XR CHEST 2 V 14262 EXAM: - XR CHEST 2 V HISTORY: Chest pain. COMPARISON: None available time of interpretation. FINDINGS: PA and lateral view of the chest is provided. Heart size and vascularity are within normal limits. There is no evidence of a focal consolidation. There is no pleural effusion or pneumothorax. There is no definite acute osseous abnormality. IMPRESSION: No radiographic evidence of acute cardiopulmonary process. at 0206 Reported and signed by: Igor Almonte MD CC: Suleman Carvalho Dictated Date/Time: 09/14/2022 (0206)Technologist: SULEMAN DYER ARRT (R) Transcribed Date/Time: 09/14/2022 (205) By: [email or web address] Orig Print D/T: S: 09/14/2022 (208) DENIZ Lugo NAME: KRUNAL JONES[address] PHYS: Suleman [place], [place] [address] : 1975 AGE: 47 SEX: F LOC: GregorioERS PHONE #: [phone] EXAM DATE: 09/14/2022 STATUS: REG ER FAX #: [phone] RAD NO: DC Dt: PAGE 1 Signed ReportCOMPREHENSIVE METABOLIC [id number] 12:49:00 Test Item Value Reference Range Interpretation [...] (test code = MG Index/DL The system [employer]) generated this result transmitted ref erence range: [...] int erpret this result as normal/abnormal . [id number] 12:49:00 Test Item Value Reference Range Interpretation Comments MAGNESIUM (test code = MAG) 1.7 MG/DL 1.6-2.6 N CBC W/AUTO [id number] 12:36:00 Test Item Value Reference Range Interpretation [...] N NRBC#) PENDING RECEIPT OF SPECIMEN PER B.LAB.JENNIFER AT 09/13/22 1143URINALYSIS COMPLETE 2022-09-13 12:22:00 Test [...] /LPF NONE MUCU) DRUGS OF ABUSE SCREEN [id number] 00:33:00 Test Item Value Reference Range Interpretation [...] 300 ng/mL UA RFLX MICR CULT IF [id number] 00:30:00 Test Item Value Reference Range Interpretation [...] culture: Suprapubic PainSpecimen Description: CLEAN CATCHBASIC METABOLIC [id number] 00:18:00 Test Item Value Reference Range Interpretation [...] the recommended for randall for GFRby the [facility] on for Adults.The GFR will not calculate if th e sex is unknown or if thepatient's ag e is <18 years. CREATININE (test 0.55 mg/dL 0.60-1.30 L code = CREAT) CALCIUM (test code 8.9 mg/dl 8.0-10.5 N = CA) HEPATIC FUNCTION PANEL [id number] 00:18:00 Test Item Value Reference Range Interpretation [...] 50.0-136.0 N code = ALKP) HCG SERUM [id number] 00:18:00 Test Item Value Reference Range Interpretation Comments HCG SERUM QUAL (test code = HCGQL) NEGATIVE NEGATIVE [id number] 00:18:00 Test Item Value Reference Range Interpretation Comments ALCOHOL (test code 0.00 gm/dL 0.00-0.00 N ETHYL ALC OHOL VALUES - = ALC) INTERPRETATION: 0.050 GM/DL - NOT INT OXICATED 0.100 GM/DL - INTOXICATED 0.3 50-0.450 GM/DL - SEVEREL Y INTOXICATED 0.5 50 GM/DL- FATAL INTOXICAT ION Coronavirus 2018 nCoV [id number] 00:09:00 Test Item Value Reference Range Interpretation Comments Coronavirus 2019 Negative NEGATIVE Negative re sults should be nCoV Bedside (test treated a s presumptive and code = ifinconsistent with MCPRZ12WCCCE) clinical signs and symptoms, or ne cessaryfor patient managem ent, should be tested with an alternativemole cular assay. Negative result s do not preclude CTTY-VoO-7nbhio tion and should not be u sed as the sole basis forp atient management deci sions. Negative result s should beconsidered in the context of a patient's recent exposures,histo ry, presence of clinical sig ns and symptoms consis tentwith COVID-19. CBC W/AUTO [id number] 23:58:00 Test Item Value Reference Range Interpretation [...] 3uL 0.00-0.01 N NRBC#) COMP. METABOLIC PANEL (42261)2022-09-07 02:12:41 Test Item Value Reference Range Interpretation Comments NA (test code = 133 mmol/L 135-145 L 4452889681) K (test code = 4.4 mmol/L 3.5-5.0 2909009836) CL (test code = 102 mmol/L 98-108 7577994764) CO2 TOTAL (test code = 25 mmol/L 23-31 7339025297) AGAP (test code = 6 2-16 9867524721) BUN (test code = 22 mg/dL 7-23 9295196079) GLUCOSE (test code = 97 mg/dL 70-110 1394458627) CREATININE (test code = 0.40 mg/dL 0.50-1.04 L 1136395932) TOTAL BILI (test code = 0.3 mg/dL 0.1-1.6 1656756425) CALCIUM (test code = 8.9 mg/dL 8.6-10.6 4643286190) T PROTEIN (test code = 7.7 g/dL 6.3-8.2 5481807066) ALBUMIN (test code = 4.0 g/dL 3.5-5.0 4953648941) ALK PHOS (test code = 104 U/L 34-122 2486317648) ALTv (test code = 15 U/L 5-35 1742-6) AST(SGOT) (test code = 22 U/L 13-40 0332005250) eGFR (test code = 170.4 mL/min/1.73m2 2589035685) HANNAH (test code = HANNAH) Association of [...] tests). Lab Interpretation Abnormal (test code = 26141-0) [facility] WITH [id number] 02:01:20 Test Item Value Reference Range Interpretation Comments WBC (test code = 6.17 See_Comment [Automated 9643-2) message] The sy stem which generated this result transmitted reference range : 4.30 - 11.10 10*3/?L. The reference range was not used to interpret this result as normal/abnormal . RBC (test code = 3.73 See_Comment L [Automated 964-7) message] The sy stem which generated this [...] RDW-SD (test code = 48.1 fL 39.0-49.9 42239-4) RDW-CV (test code = 14.7 % 12.0-15.5 788-0) PLT (test code = 272 See_Comment [Automated 777-3) message] The sy stem which generated this result transmitted reference range : 166 - 358 10*3/ ?L. The reference r kobi was not used to interpret this result as normal/abnormal . MPV (test code = 9.6 fL 9.5-12.9 87289-5) NRBC/100 WBC (test 0.0 See_Comment [Automat ed code = 8305024196) message] The system which generated this result transmitted reference range : 0.0 - 10.0 /100 WBCs. The refer ence range was not u sed to interpret th is result as normal/abnormal . NRBC x10^3 (test code See_Comment [Auto mated = 5490851859) message] The s ystem which generated this result transmitted reference range : 10*3/?L. The reference range was not used to interpret this result as normal/abnormal . GRAN MAT (NEUT) % 42.2 % (test code = 770-8) IMM GRAN % (test code 0.20 % = 4334295648) LYMPH % (test code = 38.2 % 736-9) MONO % (test code = 12.6 % 5905-5) EOS % (test code = 5.8 % 713-8) BASO % (test code = 1.0 % 706-2) GRAN MAT x10^3(ANC) 2.60 10*3/uL 1.88-7.09 (test code = 3504767260) IMM GRAN x10^3 (test 0.00-0.06 code = 9647678754) LYMPH x10^3 (test code 2.36 10*3/uL 1.32-3.29 = 731-0) MONO x10^3 (test code 0.78 10*3/uL 0.33-0.92 = 742-7) EOS x10^3 (test code = 0.36 10*3/uL 0.03-0.39 711-2) BASO x10^3 (test code 0.06 10*3/uL 0.01-0.07 = 704-7) Lab Interpretation Abnormal (test code = 48571-6) [facility] by RT-PCR (HIGH RISK) 2020-08-19 00:00:00 Test Item Value Reference Range Interpretation Comments SARS-CoV-2 INTERPRETATION (test NEGATIVE code = 49377) SOURCE (test code = 86673) NOT SPECIFIED SARS-CoV-2 (COVID-19) by RT-PCR (HIGH RISK)2020-08-19 00:00:00 Test Item Value Reference Range Interpretation Comments SARS-CoV-2 INTERPRETATION (test NEGATIVE code = 01889) SOURCE (test code = 90337) NOT SPECIFIED PAP TEST, THINPREP, [id number] 00:00:00 Test Item Value Reference Range Interpretation Comments SOURCE: (test code = Cervical/Endocervical 8001) SLIDES: (test code = 1 8011) LMP: (test code = 8021) 06/2017 SPECIMEN ADEQUACY: (test (NOTE) code = 60753) INTERPRETATION: (test NILM/NO EPITH. code = 47437) ABNORMALITY;SEE BELOW MOTOR RUNNER: (test Malek code = 8101) KANA Wen(ASCP) IAC LOCATION: (test code = (NOTE) 13460) CPT: (test code = 8140) (NOTE) PAP TEST, THINPREP, [id number] 00:00:00 Test Item Value Reference Range Interpretation Comments SOURCE: (test code = Cervical/Endocervical 8001) SLIDES: (test code = 1 8011) LMP: (test code = 8021) 06/2017 SPECIMEN ADEQUACY: (test (NOTE) code = 58530) INTERPRETATION: (test NILM/NO EPITH. code = 64195) ABNORMALITY;SEE BELOW MOTOR RUNNER: (test Malek code = 8101) DonovancindyregiKANA oliver(ASCP) IAC LOCATION: (test code = (NOTE) 80573) CPT: (test code = 8140) (NOTE) HPV HIGH RISK WITH GENOTYPE, [id number] 00:00:00 Test Item Value Reference Range Interpretation Comments HPV HIGH RISK INTERP (test code = NEGATIVE 56471) HPV 16 (test code = 39118) NEGATIVE HPV 18 (test code = 23728) NEGATIVE HPV, HR, OTHER GENOTYPES (test code NEGATIVE = 90389) HPV HIGH RISK WITH GENOTYPE, [id number] 00:00:00 Test Item Value Reference Range Interpretation Comments HPV HIGH RISK INTERP (test code = NEGATIVE 93144) HPV 16 (test code = 19882) NEGATIVE HPV 18 (test code = 76351) NEGATIVE HPV, HR, OTHER GENOTYPES (test code NEGATIVE = 58079) CT HEAD WO [id number] 22:34:12Impression: 1. ?No acute intracranial process. 2. [...] air cells, paranasal sinuses are within normallimits. [facility], Radiant Results Inft User - 07/22/2019 [...] the patient. Please correlate with history and physicalexamination.[facility] C[facility] SP[facility] 2 [id number] 22:29:40 No acute osseous abnormality. Preliminary Report [...] reviewed this study and agree with theabove report.[facility] WITH [id number] 21:46:00 Test Item Value Reference Range Interpretation Comments WBC (test code = See_Comment [Automated 6190-2) message] The sy stem which generated this result transmitted reference range : 4.30 - 11.10 10*3/?L. The reference range was not used to interpret this result as normal/abnormal . RBC (test code = See_Comment L [Automated 039-8) message] The sy stem which generated this [...] RDW-SD (test code = 45.1 fL 39-49.9 95898-4) RDW-CV (test code = 14.6 % 12-15.5 788-0) PLT (test code = See_Comment L [Automated 777-3) message] The sy stem which generated this result transmitted reference range : 166 - 358 10*3/ ?L. The reference r kobi was not used to interpret this result as normal/abnormal . MPV (test code = 9.0 fL 9.5-12.9 L 81323-7) NRBC/100 WBC (test See_Comment [Automat ed code = 5392125811) message] The system which generated this result transmitted reference range : 0.0 - 10.0 /100 WBCs. The refer ence range was not u sed to interpret th is result as normal/abnormal . NRBC x10^3 (test code <0.01 See_Comment [Auto mated = 5188519480) message] The s ystem which generated this result transmitted reference range : 10*3/?L. The reference range was not used to interpret this result as normal/abnormal . GRAN MAT (NEUT) % 51.3 % (test code = 770-8) IMM GRAN % (test code 0.40 % = 1549308068) LYMPH % (test code = 24.4 % 736-9) MONO % (test code = 23.1 % 5905-5) EOS % (test code = 0.4 % 713-8) BASO % (test code = 0.4 % 706-2) GRAN MAT x10^3(ANC) 2.48 10*3/uL 1.88-7.09 (test code = 0464983645) IMM GRAN x10^3 (test <0.03 0-0.06 code = 6139253182) LYMPH x10^3 (test code 1.18 10*3/uL 1.32-3.29 L = 731-0) MONO x10^3 (test code 1.12 10*3/uL 0.33-0.92 H = 742-7) EOS x10^3 (test code = <0.03 0.03-0.39 L 711-2) BASO x10^3 (test code <0.03 0.01-0.07 = 704-7) Lab Interpretation Abnormal (test code = 86238-5) [facility] [facility] CERVICAL SPINE 2 [id number] 03:28:03 No acute osseous abnormality. Preliminary Report [...] this study and agree withthe above report. [facility] [id number] 08:03:22 Test Item Value Reference Range Interpretation Comments Valproic Acid Level (test code 57.6 ug/mL(g) 50.0-100.0 = Valproic Acid Level) Hemoglobin [id number] 09:36:00 Test Item Value Reference Range Interpretation Comments Hemoglobin A1c (test code 5.0 % 4.8-5.9 No n Diabetic = Hemoglobin A1c) 4.8-5.9%Di abetic <7.0% CT Shoulder w/o Contrast [id number] 16:49:13Patient: BHUMIKA JONES Date/Time01/09/2019 16:14 CDTReason for [...] Adam FSigned (Electronic Signature): 01/09/2019 4:49 pmRPR [id number] 21:33:20 Test Item Value Reference Range Interpretation [...] Expiration Dt) XR Shoulder Complete 2+ Views [id number] 15:41:25Patient: BHUMIKA JONES Date/Time01/07/2019 15:25 CDTReason for [...] CSigned (Electronic Signature): 01/07/2019 3:41 pmThyroid Stimulating [id number] 03:07:04 Test Item Value Reference Range Interpretation Comments TSH (test code = TSH) 9.650 mIU/mL 0.270-4.200 H Lipid [id number] 03:07:03 Test Item Value Reference Range Interpretation Comments Cholesterol Total 199 mg/dL 0-200 RISK OF HE ART (test code = DISEASEPublishe d by Cholesterol Total) [place] [employer] [place] Optimal Borderl ine [...] LDL/HDL Ratio=L DL Calc/HDL Chol HCG Qualitative [id number] 02:33:13 Test Item Value Reference Range Interpretation Comments HCG, Serum Qual (test code = HCG, Negative Serum Qual) Lot # (test code = Lot #) [id number] N Expiration Dt (test code = 2020-04-23 N Expiration Dt) Neg Control (test code = Neg Negative Control) Pos Control (test code = Pos Positive Control) Internal QC (test code = Internal Acceptable QC) Drugs of Abuse Urine [id number] 18:58:11 Test Item Value Reference Range Interpretation [...] (test code = Cannabinoid Screen Ur) Alcohol [id number] 18:47:34 Test Item Value Reference Range Interpretation Comments Ethanol Level (test <0.00 g/dL 0.00-0.01 Intoxica isabel 0.080 g/dL code = Ethanol or more Level) Ethanol Inst (test <0 N code = Ethanol Inst) Comprehensive Metabolic [id number] 18:47:33 Test Item Value Reference Range Interpretation [...] A/G 1.0 ratio N Ratio) Comprehensive Metabolic [id number] 18:47:33 Test Item Value Reference Range Interpretation [...] National Kidney Foundation, http://nkdep.ni h.gov Comprehensive Metabolic [id number] 18:47:33 Test Item Value Reference Range Interpretation [...] Foundation, http://[email or web address].ni h.gov Complete Blood Count with [id number] 18:15:23 Test Item Value Reference Range Interpretation [...] code = IPF) 0 % N Automated [id number] 18:15:23 Test Item Value Reference Range Interpretation Comments Neutro Auto (test code = Neutro 42.1 % 36.0-70.0 Auto) Lymph Auto (test code = Lymph Auto) 40.0 % 12.0-44.0 [place] Auto (test code = [place] Auto) 12.2 % 0.0-11.0 H Eos, Auto (test code = Eos, Auto) 4.9 % 0.0-7.0 Basophil Auto (test code = Basophil 0.6 % 0.0-2.0 Auto) Neutro Absolute (test code = Neutro 2.2 x10 1.6-7.4 Absolute) Lymph Absolute (test code = Lymph 2.06 x10 .50-4.60 Absolute) [place] Absolute (test code = [place] .63 x10 .00-1.20 Absolute) Eos Absolute (test code = Eos 0.25 x10 0.00-0.74 Absolute) Baso Absolute (test code = Baso 0.03 x10 0.00-0.21 Absolute) IG [id number] 18:15:23 Test Item Value Reference Range Interpretation Comments IG (test code = IG) 0.2 % 0.0-5.0 IG Abs (test code = IG Abs) 0 x10 N VALPROIC [id number] 00:00:00 Test Item Value Reference Range Interpretation Comments VALPROIC ACID (test code = 3025) 69.8 UG/ML VALPROIC [id number] 00:00:00 Test Item Value Reference Range Interpretation Comments VALPROIC ACID (test code = 3025) 69.8 UG/ML URINE CULTURE, NO [id number] 00:00:00 Test Item Value Reference Range Interpretation Comments URINE CULTURE, NO SPECIMEN NUMBER: SENS (test code = 81311967 [id number]) URINE CULTURE, NO [id number] 00:00:00 Test Item Value Reference Range Interpretation Comments URINE CULTURE, NO SPECIMEN NUMBER: SENS (test code = 35436952 [id number]) IRON BINDING CAPACITY AND IRON AND % [id number] 00:00:00 Test Item Value Reference Range Interpretation Comments IRON, SERUM (test code = 2221) 42 UG/DL UNSATURATED IBC (test code = ) 279 UG/DL CALC TOTAL IBC (test code = 2076) 321 UG/DL CALC % IRON SAT (test code = 2078) 13 % IRON BINDING CAPACITY AND IRON AND % [id number] 00:00:00 Test Item Value Reference Range Interpretation Comments IRON, SERUM (test code = 2) 42 UG/DL UNSATURATED IBC (test code = ) 279 UG/DL CALC TOTAL IBC (test code = 2076) 321 UG/DL CALC % IRON SAT (test code = 2078) 13 % [id number] 00:00:00 Test Item Value Reference Range Interpretation Comments FERRITIN (test code = 2074) 15 NG/ML [id number] 00:00:00 Test Item Value Reference Range Interpretation Comments FERRITIN (test code = 2075) 15 NG/ML [id number] 00:00:00 Test Item Value Reference Range Interpretation Comments TRANSFERRIN (test code = 4936) 269 MG/DL [id number] 00:00:00 Test Item Value Reference Range Interpretation Comments TRANSFERRIN (test code = 4936) 269 MG/DL FOLIC [id number] 00:00:00 Test Item Value Reference Range Interpretation Comments FOLIC ACID (test code = 2695) 5.4 UG/L FOLIC [id number] 00:00:00 Test Item Value Reference Range Interpretation Comments FOLIC ACID (test code = 2695) 5.4 UG/L CULTURE, URINE [ADDED]2018-06-12 00:00:00 Test Item Value Reference Range Interpretation Comments CULTURE, URINE (test SPECIMEN NUMBER: code = 04842) [id number] CULTURE, URINE [ADDED]2018-06-12 00:00:00 Test Item Value Reference Range Interpretation Comments CULTURE, URINE (test SPECIMEN NUMBER: code = 84422) [id number] VALPROIC [id number] 00:00:00 Test Item Value Reference Range Interpretation Comments VALPROIC ACID (test code = 3025) 100.9 UG/ML VALPROIC [id number] 00:00:00 Test Item Value Reference Range Interpretation Comments VALPROIC ACID (test code = 3025) 100.9 UG/ML CBC W/AUTO [id number] 00:00:00 Test Item Value Reference Range Interpretation [...] code = 1015) 184 K/UL CBC W/AUTO [id number] 00:00:00 Test Item Value Reference Range Interpretation [...] code = 1015) 184 K/UL CBC W/AUTO [id number] 00:00:00 Test Item Value Reference Range Interpretation [...] code = 1015) 184 K/UL COMPREHENSIVE METABOLIC [id number] 00:00:00 Test Item Value Reference Range Interpretation Comments GLUCOSE (test code = 2217) 86 MG/DL BUN (test code = 2208) 16 MG/DL CREATININE (test code = 2214) 0.45 MG/DL eGFR AMER. (test code 141 ML/MIN/1.73 = 78842) eGFR NON- AMER. (test 122 ML/MIN/1.73 code = 33785) CALC BUN/CREAT (test code = 36 RATIO [...] code = 2219) 17 U/L COMPREHENSIVE METABOLIC [id number] 00:00:00 Test Item Value Reference Range Interpretation Comments GLUCOSE (test code = 2217) 86 MG/DL BUN (test code = 2208) 16 MG/DL CREATININE (test code = 2214) 0.45 MG/DL eGFR AMER. (test code 141 ML/MIN/1.73 = 31809) eGFR NON- AMER. (test 122 ML/MIN/1.73 code = 04969) CALC BUN/CREAT (test code = 36 RATIO [...] = 2219) 17 U/L PAP TEST, THINPREP, [id number] 00:00:00 Test Item Value Reference Range Interpretation Comments SOURCE: (test code = Cervical/Endocervical 8001) SLIDES: (test code = 1 8011) LMP: (test code = 03/2017 8021) SPECIMEN ADEQUACY: (NOTE) (test code = 91168) INTERPRETATION: (test NO EPITHELIAL code = 04882) ABNORMALITY SEE BELOW MOTOR RUNNER: Santi Elizondo, (test code = 8101) CT(ASCP)IAC LOCATION: (test code (NOTE) = 99272) CPT: (test code = (NOTE) 8140) PAP TEST, THINPREP, [id number] 00:00:00 Test Item Value Reference Range Interpretation Comments SOURCE: (test code = Cervical/Endocervical 8001) SLIDES: (test code = 1 8011) LMP: (test code = 03/2017 80) SPECIMEN ADEQUACY: (NOTE) (test code = 57518) INTERPRETATION: (test NO EPITHELIAL code = 64560) ABNORMALITY SEE BELOW MOTOR RUNNER: Santi Elizondo, (test code = 8101) CT(ASCP)IAC LOCATION: (test code (NOTE) = 85120) CPT: (test code = (NOTE) 8140) HPV HIGH RISK WITH GENOTYPE, [id number] 00:00:00 Test Item Value Reference Range Interpretation Comments HPV HIGH RISK INTERP (test code = NEGATIVE 85867) HPV 16 (test code = 32977) NEGATIVE HPV 18 (test code = 88254) NEGATIVE HPV, HR, OTHER GENOTYPES (test code NEGATIVE = 56293) HPV HIGH RISK WITH GENOTYPE, [id number] 00:00:00 Test Item Value Reference Range Interpretation Comments HPV HIGH RISK INTERP (test code = NEGATIVE 14788) HPV 16 (test code = 02847) NEGATIVE HPV 18 (test code = 92036) NEGATIVE HPV, HR, OTHER GENOTYPES (test code NEGATIVE = 89209) GC AND CHLAMYDIA AMPLIFIED, [id number] 00:00:00 Test Item Value Reference Range Interpretation Comments GONORRHEA, TMA (test code = 72056) NEGATIVE CHLAMYDIA, TMA (test code = 11341) NEGATIVE HIV AB/AG COMBO RFLX [id number] 00:00:00 Test Item Value Reference Range Interpretation Comments HIV 1/2 4TH GEN, RFLX CONF (test NON-REACTIVE code = 3514) GC AND CHLAMYDIA AMPLIFIED, [id number] 00:00:00 Test Item Value Reference Range Interpretation Comments GONORRHEA, TMA (test code = 98768) NEGATIVE CHLAMYDIA, TMA (test code = 85680) NEGATIVE HIV AB/AG COMBO RFLX [id number] 00:00:00 Test Item Value Reference Range Interpretation Comments HIV 1/2 4TH GEN, RFLX CONF (test NON-REACTIVE code = 3514) COMPREHENSIVE METABOLIC [id number] 00:00:00 Test Item Value Reference Range Interpretation Comments GLUCOSE (test code = 2217) 90 MG/DL BUN (test code = 2208) 21 MG/DL CREATININE (test code = 2214) 0.42 MG/DL eGFR AMER. (test code 145 ML/MIN/1.73 = 73641) eGFR NON- AMER. (test 126 ML/MIN/1.73 code = 12327) CALC BUN/CREAT (test code = 50 RATIO 2235) SODIUM (test code = 2231) 139 MEQ/L POTASSIUM (test code = 2228) 4.0 MEQ/L CHLORIDE (test code = 2215) 99 MEQ/L CARBON DIOXIDE (test code = 24 MEQ/L 2206) CALCIUM (test code = 2209) 9.3 MG/DL PROTEIN, TOTAL (test code = 7.1 G/DL 2229) ALBUMIN (test code = 2201) 3.7 G/DL CALC GLOBULIN (test code = 3.4 G/DL 2240) CALC A/G RATIO (test code = 1.1 RATIO 2234) BILIRUBIN, TOTAL (test code = 0.1 MG/DL 2207) ALKALINE PHOSPHATASE (test 54 U/L code = 2204) AST (test code = 2218) 11 U/L ALT (test code = 2219) <5 U/L COMPREHENSIVE METABOLIC [id number] 00:00:00 Test Item Value Reference Range Interpretation Comments GLUCOSE (test code = 2217) 90 MG/DL BUN (test code = 2208) 21 MG/DL CREATININE (test code = 2214) 0.42 MG/DL eGFR AMER. (test code 145 ML/MIN/1.73 = 87320) eGFR NON- AMER. (test 126 ML/MIN/1.73 code = 87984) CALC BUN/CREAT (test code = 50 RATIO [...] CALC GLOBULIN (test code = 3.4 G/DL 224) CALC A/G RATIO (test code = 1.1 RATIO 2233) BILIRUBIN, TOTAL (test code = 0.1 MG/DL 2206) ALKALINE PHOSPHATASE (test 54 U/L code = 2204) AST (test code = 2218) 11 U/L ALT (test code = 2219) <5 U/L LIPID [id number] 00:00:00 Test Item Value Reference Range Interpretation Comments CHOLESTEROL (test code = 2210) 186 MG/DL TRIGLYCERIDES (test code = 2232) 131 MG/DL HDL CHOLESTEROL (test code = 2220) 67 MG/DL CALC LDL CHOL (test code = 2237) 93 MG/DL RISK RATIO LDL/HDL (test code = 1.39 RATIO 2238) LIPID [id number] 00:00:00 Test Item Value Reference Range Interpretation Comments CHOLESTEROL (test code = 2210) 186 MG/DL TRIGLYCERIDES (test code = 2232) 131 MG/DL HDL CHOLESTEROL (test code = 2220) 67 MG/DL CALC LDL CHOL (test code = 2237) 93 MG/DL RISK RATIO LDL/HDL (test code = 1.39 RATIO 2238) CBC W/AUTO [id number] 00:00:00 Test Item Value Reference Range Interpretation [...] code = 1015) 152 K/UL CBC W/AUTO [id number] 00:00:00 Test Item Value Reference Range Interpretation [...] code = 1015) 152 K/UL CBC W/AUTO [id number] 00:00:00 Test Item Value Reference Range Interpretation [...] (test code = 1015) 152 K/UL HEMOGLOBIN [id number] 00:00:00 Test Item Value Reference Range Interpretation Comments HEMOGLOBIN A1c (test code = 79480) 5.2 % HEMOGLOBIN [id number] 00:00:00 Test Item Value Reference Range Interpretation Comments HEMOGLOBIN A1c (test code = 18944) 5.2 % HEMOGLOBIN [id number] 00:00:00 Test Item Value Reference Range Interpretation Comments HEMOGLOBIN A1c (test code = 40672) 5.2 % [id number] 00:00:00 Test Item Value Reference Range Interpretation Comments TSH (test code = 2821) 2.020 UIU/ML [id number] 00:00:00 Test Item Value Reference Range Interpretation Comments TSH (test code = 2821) 2.020 UIU/ML [id number] 00:00:00 Test Item Value Reference Range Interpretation Comments TSH (test code = 2821) 2.020 UIU/ML Notes Date/Time Note Provider Source 2022-10-11 12:29:00-00:00 [facility] Hospitalist Discharge Summary REPORT#:[id number] REPORT STATUS: Signed DATE:10/11/22 TIME: 1229 PATIENT: BHUMIKA JONES UNIT #: [id number] ROOM/BED: [place] [address] : 74 AGE: 47 SEX: F ATTEND: Marly Mendenhall MD ADM AUTHOR: Marly Mendenhall MD * ALL edits or amendments must be made on the el C3 Metrics/computer document * General Information Discharge date: 09/19/22 Discharge diagnosis: Metabolic encephalopathy Hyponatremia History of seizure disorder Hospital course: This is a 47-year-old female with past medical history of schizophrenia seizure disorder she was brought into the ER because of altered mental status she had decreased responsiveness from her the patient th is morning with the help of railroad police and she said that he lives with [...] refill, normal range of motion, no edema Neuro/MANAGER STARS: altered mental status, alert Discharge Instructions PCP Discharge to: Home/Self Care Additional Discharge Routines: PCP Follow-Up Diet: Resume Home Diet/Feeds Activity: As Tolerated Follow-up Appointments PCP follow-up: PCP: No Primary or Family Physician PCP follow up timeframe: In 6 days Electronically Signed by Marly Mendenhall MD on at 1230 RPT #:[id number] END OF REPORT 2022-09-18 17:27:00-00:00 [facility] ([facility]) Electroencephalogram-EEG REPORT#:[id number] REPORT STATUS: Signed DATE:09/18/22 TIME: 1726 PATIENT: BHUMIKA JONES UNIT #: [id number] ROOM/BED: [place] [address] : 74 AGE: 47 SEX: F ATTEND: Marly Mendenhall MD ADM AUTHOR: Nelia Parker MD * ALL edits or amendments must be made on the el C3 Metrics/computer document * Procedure HPI Requesting clinician: self [...] Atorvastatin Calcium 40 MG BEDTIME 09/17 2100 A C 09/17 (LIPITOR) PO 10/17 2101 2145 Central Nervous System Agents Sig/Ksenia Start time Last Medication Dose Route Stop Time Status Admin Aspirin 81 MG DAILY 09/18 0900 AC 09/18 (ASPIRIN) PO 10/18 0901 0823 Divalproex Sodium 1,000 MG DAILY 09/18 0900 CAN (DEPAKOTE ER "INTERIANO" PO 10/18 0901 (NF)) Levetiracetam 750 MG Q12HR 09/18 0900 CAN (KEPPRA IV) IV 10/18 09 Sodium Chloride 92.5 ML (SODIUM CHLORIDE 0.9%) Levetiracetam 750 MG Q12HR 09/18 0900 DC 09/18 (KEPPRA IV) IV 10/18 0901 0823 Risperidone 3 MG DAILY 09/18 0900 CAN (RisperDAL) PO 10/18 900 Acetaminophen 650 MG Q6H PRN PRN 09/17 1929 AC (TYLENOL) RECTAL 10/17 1930 Carbamazepine 400 MG Q12H 09/17 1929 CAN (TEGretol) PO 10/17 1930 Lorazepam 1 MG Q6H PRN PRN 09/17 1929 AC (ATIVAN) IV 10/17 1930 Electrolytic, Caloric, And Xavi Sig/Ksenia Start time Last Medication Dose Route Stop Time Status Admin Lactated Ringer's 1,000 ML .Q20H 09/17 1929 AC 09/18 (LACTATED RINGERS) IV 10/17 1930 [...] open eyes (commands were obtained using a regulatory affairs strategy specialist) with opening th e eyes the patient [...] she is outside the hospital she david deny yes. During this event there was no [...] Parker MD on 3 at 1736 RPT #:[id number] END OF REPORT 2022-09-18 14:24:00-00:00 [facility] ([facility]) Neurology Consultation Note REPORT#:[id number] REPORT STATUS: Signed DATE:09/18/22 TIME: 1424 PATIENT: BHUMIKA JONES UNIT #: [id number] ROOM/BED: [place] [address] : 74 AGE: 47 SEX: F ATTEND: Marly Mendenhall MD ADM AUTHOR: Nelia Parker MD * ALL edits or amendments must be made on the el C3 Metrics/computer document * See Addendum History of Present Illness HPI Requesting clinician: see consult order Reason for consult: "AMS" Chief complaint: wanting to go home for her family HPI: 47-year-old female Comoran speaking onl y who was brought into [...] and the patient was sent to a residential. Reportedly per the patient she did not like the residential and does not like the food there [...] seizures prior to her being in the residential. Per the patient she get up set [...] to confirm the his tory and the residential location is unknown to contact someone who [...] <10 MG 09/18 09/18 09/17 09/17 0553 0585 0097 1514 Chemistry Hemoglobin A1c (4.5 - 5.6 % [...] SMALL 50-200 MG H Laboratory Tests 09/17 1934 Hematology WBC (4.1 - 12.1 K/mm3) 4.5 [...] - 8.0 pH UNITS) 6.5 Ur Specific [place] (1.001 - 1.035 SG) 1.013 Urine Protein [...] Parker MD on 3 at 1652 RPT #:[id number] END OF REPORT 2022-09-18 11:44:00-00:00 [facility] Hospitalist Progress Note REPORT#:[id number] REPORT STATUS: Signed DATE:09/18/22 TIME: 1144 PATIENT: BHUMIKA JONES UNIT #: [id number] ROOM/BED: [place] [address] : 74 AGE: 47 SEX: F ATTEND: Marly Mendenhall MD ADM AUTHOR: Marly Mendenhall MD * ALL edits or amendments must be made on the [employer] [place]/computer document * Subjective Chief complaint: Altered mental status HPI: This is a 47-year-old female with past medical history of schizophrenia seizure disorder she was brought into the ER because of altered mental status she had decreased responsiveness from her the patient th is morning with the help of railroad police and she said that he lives with [...] Pulse Resp B/P B/P Pulse O2 O2 Flow FiO2 Mean Ox Delivery Rate 09/18 1127 98.2 64 18 116/83 94.0 100 Room air 09/18 0915 98 Room air 21 09/18 0800 98.2 61 20 144/77 99 09/18 0342 63 132/84 100.2 100 09/18 0339 98.2 64 15 100 09/17 2030 70 16 145/90 108.5 99 09/17 2009 98.2 71 15 99 09/17 1944 100 [...] refill, normal range of motion, no edema Neuro/MANAGER STARS: altered mental status, alert Diagnosis, Assessment Plan [...] Marly Mendenhall MD on at 1147 RPT #:[id number] END OF REPORT 2022-09-18 01:06:00-00:[address] [facility] Hospitalist History Physical REPORT#:[id number] REPORT STATUS: Signed DATE:09/18/22 TIME: 0106 PATIENT: BHUMIKA JONES UNIT #: [id number] ROOM/BED: [place] [address] : 74 AGE: 47 SEX: F ATTEND: Marshall Orellana MD ADM AUTHOR: Nelia Moffett MD * ALL edits or amendments must be made on the el C3 Metrics/computer document * History of Present Illness HPI [...] - 8.0 pH UNITS) 6.5 Ur Specific [place] (1.001 - 1.035 SG) 1.013 Urine Protein [...] Cells (NONE - SQepi /UL) RARE >0 09/17 1518 Chemistry Serum , Qual [...] oziel today. Impression By: Leonardo - Nati padlila M.D. 09/18 0700 09/17 2300 09/17 1500 [...] Pulse 70 09/17 2029 Resp 16 09/17 2029 Temp 36.8 09/17 2008 O2 Delivery Room air 09/17 1929 24 hour I O ending at 0700: 09/18 0709/17 1900 Intake Total Output Total Balance Patient 72 kg Weight Weight Estimated Measurement Method Patient Weight and BMI Weight (kg): 72.000 BMI: 26.4 General appearance: awake Cardiovascular: regular rate rhythm Respiratory: decreased breath sounds Abdomen: soft Neuro/MANAGER STARS: altered mental status, alert Diagnosis, Assessment Plan [...] Nelia Moffett MD on 3 at 0110 RPT #:[id number] END OF REPORT 2022-09-17 14:34:00-00:00 [facility] ([facility]) EMERGENCY PROVIDER REPORT REPORT#:[id number] REPORT STATUS: Signed DATE:09/17/22 TIME: 1434 PATIENT: BHUMIKA JONES UNIT #: [id number] ROOM/BED: [place] [address] AGE: 47 SEX: F PCP PHYS: No Primary or Family Ph ysician SERVICE AUTHOR: Valentina Samayoa MD * ALL edits or amendments must be made on the [employer] [place]/[employer] document * HPI-General Illness Free Text HPI Notes Free Text HPI Notes 47-year-old female presents after possible seizu re episode at [facility], will assessment patient is n ot fully oriented, and cannot provide history of the events of today when asked multiple times. Addit ional history limited as the patient is tearful and not fully oriented. I spo ke to the patient's sister Lewis Chiang, phone #[phone] by phone, who reports the patient has been missing from home for 8 days. Reports when the p atient is medically cleared they can come get the patien t. Patient reportedly initially without medications at the [facility] PMH: Seizures, schizophrenia. General Initial Greet Date/Time 09/17/22 1432 Presentation Chief Complaint Altered mental status (possible seizure) Past Medical History - Adult Stated Complaint SEIZURE Allergies Coded Allergies: No Known Allergies (09/13/22) Home Medications Active Scripts carBAMazepine (TEGretol) 400 MG PO Q12H carBAMazepine (TEGretol) 400 MG PO Q12H #120 T ABS Prov: 09/13/22 Discontinued Scripts risperiDONE (RisperDAL) 3 MG PO BEDTIME risperiDONE (RisperDAL) 3 MG PO BEDTIME #30 TAB S Prov: 09/13/22 DC: 09/14/22 1500 entry level finance correction DIVALPROEX (GINA CALLES) 1,000 MG PO DAILY DIVALPROEX (GINA CALLES) 1,000 MG PO DAILY # 60 TABS Prov: 09/13/22 DC: 09/14/22 1459 entry level finance correction Reported Medications DIVALPROEX ER (DEPAKOTE ER) [...] 19 09/17 1530 Temp 97.9 09/17 1431 Review of Vital Signs Reviewed Free Text [...] - 8.0 pH UNITS) 6.5 Ur Specific [place] (1.001 - 1.035 SG) 1.013 Urine Protein [...] ill, drowsy, admitted, ultimately discharged back to residential] -My EKG interpretation: I directly visualized an [...] )( Admission Accepts Yes )( Accepted Time 1633 )( Accepted Date 09/17/22 Electronically Signed by Valentina Samayoa MD on 0 09/20/22 at 1114 RPT #:[id number] END OF REPORT 2022-09-17 00:19:00-00:00 [facility] ([facility]) EMERGENCY PROVIDER REPORT REPORT#:[id number] REPORT STATUS: Signed DATE:09/17/22 TIME: 0019 PATIENT: BHUMIKA JONES UNIT #: [id number] ROOM/BED: AGE: 47 SEX: F PCP PHYS: No Primary or Family Ph ysician SERVICE AUTHOR: Asim Jack MD * ALL edits or amendments must be made on the el ectronic/computer document * HPI-General Illness General Initial Greet Date/Time 09/16/225 Presentation Chief Complaint Anxiety, Not feeling well Free Text HPI Notes Free Text HPI Notes Patient brought in by EMS [facility] after increasing anxiety and concern for possible seizure activity. She was r ecently admitted here at [facility] [place] and worked up for possible seizures. She [...] Prov: 09/13/22 DC: 09/14/22 1500 entry level finance correction DIVALPROEX DR (GINA CALLES) 1,000 MG PO DAILY DIVALPROEX DR (GINA CALLES) 1,000 MG PO DAILY # 60 TABS Prov: 09/13/22 DC: 09/14/22 1459 entry level finance correction Reported Medications DIVALPROEX ER (DEPAKOTE ER) [...] Documented: Result Date Time Pulse Ox 100 09/16 2256 B/P 136/82 09/16 2256 B/P Mean 100 03/26 2256 O2 Delivery Room air 09/17 2255 Temp [...] % (Auto) (14.1 - 45.4 %) 29.6 [place] % (Auto) (2.5 - 11.7 %) 10.8 Eos % (Auto) (0.0 - 6.2 %) 2.9 Baso % (Auto) (0.0 - 2.1 %) 0.7 Gran # (2.0 - 13.7 k/mm3) 3.12 Lymph # (Auto) (0.6 - 3.8 K/mm3) 1.65 [place] # (Auto) (0.11 - 0.59 K/mm3) 0.60 H Eos # (Auto) (0.0 - 0.4 K/mm3) 0.16 Baso # (Auto) (0.0 - 0.1 K/mm3) 0.04 Immature Gran % (0.0 - 2.0 %) 0.2 Nucleated RBC % (0.0 - 1.0 /100WBC%) 0.0 Nucleated RBCs # (0.0 - 0.05 K/mm3) 0.00 Recent Impressions: CAT SCAN - CT HEAD/BRAIN W/O CONT 09/16 000 Report Impression - Status: SIGNED Entered: 09/17/2022 0035 IMPRESSION: 1. No CT evidence of acute intracranial abnormal ity. Impression By: [email or web address] - Jess Iglesias MD RADIOLOGY - XR CHEST 1 V 09/16 2304 Report Impression - Status: SIGNED Entered: 09/16/2022 2337 IMPRESSION: No acute cardiopulmonary disease. Impression By: [email or web address] - Flo Jansen MD Lab Imaging Statement [...] Text MDM Notes Patient presents from local residential with concern for possible seizure activity. I [...] d ischarge. Patient urged to follow-up with [facility] in the next 2 to 3 days Re-Evaluation/Progress #1 Time of Re-Eval 0136 Re-Eval Status Unchanged ED Course Medication(s) Ordered Medication(s) Ordered: Central Nervous System Agents Sig/Ksenia Start time Last Medication Dose Route Stop Time Status Admin Midazolam HCl 1 MG X1ED STA 09/16 2304 DC 09/16 IV 09/16 Patient Discharge Departure Vital Signs/Condition Vital Signs First Documented: Result Date Time Pulse Ox 100 09/16 225 B/P 136/82 09/17 2255 B/P Mean 100 09/17 2255 O2 Delivery Room air 09/17 2255 Temp 37.1 09/17 2255 Pulse 75 09/17 2255 Resp 09/16 Last Documented: Result Date Time Pulse Ox 99 09/17 0016 B/P 142/84 09/17 001 B/P Mean 103 09/18 15 O2 Delivery Room air 09/18 15 Temp 36.9 09/17 001 Pulse 67 09/17 001 Resp 09/17 All vital signs available at [...] Nelia Parker MD Follow-Up: 2-3 Days Address: [address] [place] [address] [address] [place] [address] Resource Referral: [facility] [place] Follow-Up: 2-3 Days Address: [address] [place] [address] Electronically Signed by Asim Jack MD on 0 09/17/22 at 0140 RPT #:[id number] END OF REPORT 2022-09-15 12:06:00-00:00 [facility] ([facility]) Electroencephalogram-EEG REPORT#:[id number] REPORT STATUS: Signed DATE:09/15/22 TIME: 1206 PATIENT: BHUMIKA JONES UNIT #: [id number] [facility] AGE: 47 SEX: F ATTEND: Matt Forbes MD ADM AUTHOR: Vickie Lewis MD * ALL edits or amendments must be made on the [employer] document * Procedure Procedure Date of procedure: [...] or electrographic seizures recorded. at 1209 RPT #:[id number] END OF REPORT 2022-09-15 12:00:00-00:00 [facility] Hospitalist Discharge Summary REPORT#:[id number] REPORT STATUS: Signed DATE:09/15/22 TIME: 1200 PATIENT: BHUMIKA JONES UNIT #: [id number] ROOM/BED: 250-W : 74 AGE: 47 SEX: F ATTEND: Matt Forbes MD ADM AUTHOR: Vladimir Forbes MD * ALL edits or amendments must be made on the [employer] document * General Information Problem List/A P: 1. Psychosis 2. Seizure-like activity 3. Nonadherence to medication 4. UTI (urinary tract infection) 5. Seizure disorder Discharge date: 09/15/22 Discharge diagnosis: Seizure disorder. Psychosis. Mood disorder Homeless status Hospital course: Patient is a 47-year-old female with a past [facility] history of mood disorder, seizure disorder who primarily came to [facility] because of refilling other medications. As [...] fo r possible seizure episode. She is [place]an-speaking patient only in paper cup machine tender was used. Patient den ies to have [...] she wants to go back to her residential. I discussed with her about potential seizure epi sodes in the future use of medications compliance with the medications and further prescriptions. She states that she would management to the residential. I have requested case management to evaluate [...] diagnosis and related differentials with the pat ient/post acute care nurse practitioner including RN. All concerns and questions a re answered to the best of my abilities based on the available data.I have initia isabel the plan of care based on preliminary diagnosis, requested appopriate consultations with labs/elian gings. Patient/post acute care nurse practitioner verbalizes understanding of the plan of care. [...] Vladimir Forbes MD on at 1202 RPT #:[id number] END OF REPORT 2022-09-14 16:56:00-00:00 [facility] Neurology Consultation Note REPORT#:[id number] REPORT STATUS: Signed DATE:09/14/22 TIME: 1655 PATIENT: BHUMIKA JONES UNIT #: [id number] [facility] AGE: 47 SEX: F ATTEND: Meli Jaimes MD ADM AUTHOR: Vickie Lewis MD * ALL edits or amendments must be made on the [employer] [place]/computer document * History of Present Illness HPI [...] is a 47-year-old female with a past [facility] history of mood disorder, seizure disorder who primarily came to [facility] because of refilling other medications. As [...] fo r possible seizure episode. She is [place]an-speaking patient only in paper cup machine tender was used. Patient den ies to have [...] CHLORIDE 0.9% 1000 ML) 1 ,000 ML .[id number] IV Trazodone HCl (DESYREL) 50 MG BEDTIME PRN PRN PO Sodium Chloride (SODIUM CHLORIDE 0.9% 1000 ML) 1 ,000 ML .[id number] IV Carbamazepine (TEGretol) 400 MG BID PO [...] Negative Specimen Appearance (1 NORMAL Index/DL) 1 NORM AL <2 MG Specimen Hemolysis (1 NORMAL Index/DL) 1 NORMAL <10 MG Laboratory Tests 09/14 633 Coagulation PT (9.4 - 12.5 SECONDS) 10.7 INR (0.88 - 1.13 INR Unit) 0.95 PTT (Aimee) (24 - 37.7 SECONDS) 34.6 Laboratory Tests [...] % (Auto) (14.1 - 45.4 %) 33.6 [place] % (Auto) (2.5 - 11.7 %) 13.4 H Eos % (Auto) (0.0 - 6.2 %) 7.4 H Baso % (Auto) (0.0 - 2.1 %) 0.9 Gran # (2.0 - 13.7 k/mm3) 2.61 Lymph # (Auto) (0.6 - 3.8 K/mm3) 1.96 [place] # (Auto) (0.11 - 0.59 K/mm3) 0.78 [...] 80.6 Ur Phencyclidine Scrn (<25 NG/ML SCcutoff) NON E DETECTED (NEG) Ur Amphetamines Screen (<1000 NG/ML SCcutoff) N ONE DETECTED (NEG) U Benzodiazepines Scrn (<200 NG/ML SCcutoff) NO NE DETECTED (NEG) Urine Cocaine Screen (<300 NG/ML SCcutoff) NONE DETECTED (NEG) Urine Cannabinoids (<50 NG/ML SCcutoff) NONE DE TECTED (NEG) Laboratory Tests 09/14 0315 Urines Urine Color (YELLOW DESCRIPT) YELLOW Urine Appearance (CLEAR DESCRIPT) CLEAR Urine pH (4.6 - 8.0 pH UNITS) 6.0 Ur Specific [place] (1.001 - 1.035 SG) 1.032 Urine Protein [...] general management will be deferred to p scott team. at 1707 RPT #:[id number] END OF REPORT 2022-09-14 14:55:00-00:00 [facility] ([facility]) Hospitalist History Physical REPORT#:[id number] REPORT STATUS: Signed DATE:09/14/22 TIME: 1455 PATIENT: BHUMIKA JONES UNIT #: [id number] ROOM[facility]BED: [facility]-W : 74 AGE: 47 SEX: F ATTEND: Meli Jaimes MD ADM AUTHOR: Vladimir Forbes MD * ALL edits or amendments must be made on the [employer] document * History of Present Illness HPI Chief complaint: Altered mentation HPI: Patient is a 47-year-old female with a past medi grac[facility] history of mood disorder, seizure disorder who primarily came to [facility] because of refilling other medications. As [...] fo r possible seizure episode. She is [place]an-speaking patient only in paper cup machine tender was used. Patient den ies to have [...] (0.88 - 1.13 INR Unit) 0.95 PTT (Aimee) (24 - 37.7 SECONDS) 34.6 Toxicology Valproic [...] L Specimen Appearance (1 NORMAL Index/DL) 1 NORM AL <2 MG Specimen Hemolysis (1 NORMAL Index/DL) [...] % (Auto) (14.1 - 45.4 %) 33.6 [place] % (Auto) (2.5 - 11.7 %) 13.4 H Eos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
[2023-01-17 18:08] VITALS: BP 144/105; TEMP 98.1; O2SAT 100
== END 2023-01-17 18:02 | disposition home or self-care (01) ==
LOC: ER 17:50
DX: H72.91 Unspecified perforation of tympanic membrane, right ear (principal)
CPT/HCPCS: 99282

== ENCOUNTER 2023-02-26 22:05 | Emergency (ER) | payer SELFPAY ==
--- NOTE | 2023-02-26 22:16 | EDPHYS ---
Physician Documentation [facility] Name: Sidra Hodges Age: 48 yrs Sex: Female : 1975 Arrival Date: 02/26/2023 Time: 22:05 Bed 3 Private MD: JENELLE Physician Sebastian Silva HPI: 02/26 22:09 This 48 yrs old Female presents to ER via Unassigned with complaints of sp4 Trouble Walking. 22:17 Patient presents with EMS with complaint not being able to walk. Patient had no other sp4 complaints. EMS reported patient was able to walk to the stretcher. On my assessment patient was able to stand up and walk without any difficulty. Patient appears to be emotionally upset. Otherwise no complaints. Historical: - Allergies: 22:21 CARBAMAZEPINE DERIVATIVES; rv 22:21 Depakote; rv 22:21 Tegretol; rv - PMHx: 22:21 ADD/ADHD; Anxiety; Bipolar disorder; Chronic pain; hemorrhoids; Seizures; rv - PSHx: 22:21 R LEG SX; rv - Immunization history:: Adult Immunizations up to date. - Social history:: Smoking status: Patient denies any tobacco usage or history of. Vital Signs: 22:19 BP 124 / 81; Pulse 71; Resp 17; Temp 98; Pulse Ox 98% ; rv MDM: 22:10 Patient medically screened. sp4 Administered Medications: No medications were administered Disposition Summary: 02/26/23 22:16 Discharge Ordered Location: Home sp4 Problem: new sp4 Symptoms: have improved sp4 Condition: Stable sp4 Diagnosis - Medical screening exam, somatization disorder, acute emotional upset sp4 Followup: sp4 - With: Private Physician - When: 7 - 10 days - Reason: Recheck today's complaints Discharge Instructions: - Discharge Summary Sheet sp4 - Chronic Disease and Emotions sp4 Forms: - Patient Portal Instructions sp4 Signatures: Dispatcher [employer] Juan Antonio Salazar RN RN rv Potepalov, Sergey, MD MD sp4
--- OUTSIDE RECORDS SUMMARY | 2023-02-26 22:17 | XMS REPORT | Continuity of Care Document ---
:1975 Author Organization [facility] t Address [address] [facility] [address] [place] [address] Care Team Providers Name Role Phone [place] Swapnil CROFT Primary Care Physician [phone] DR JESS PAIGE Attending Clinician Unavailable Heri Snow MD Attending Clinician Madhavi Walker RN Attending Clinician Unavailable Marly Mendenhall Attending Clinician Unavailable Asim Jack Attending Clinician Unavailable Vladimir Forbes Attending Clinician Unavailable Brad Woodall Attending Clinician Unavailable Russel Sewell Attending Clinician Unavailable Lisa Morfin MD Attending Clinician Sandrita Key MD Attending Clinician SANDRITA KEY Attending Clinician Unavailable TAYO BOYD Attending Clinician Unavailable Tayo Boyd MD Attending Clinician JAVED FRANK Attending Clinician Unavailable Zac 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 TEAM MEMBER, Javed Attending Clinician DEON NUNEZ Attending Clinician Unavailable Deon Nunez DO Attending Clinician Doctor Unassigned, Sidell Attending Clinician Unavailable Kp Dorado Attending Clinician [...] Effective Date Expiration Date S veronica 1000 [id number] 2022 00:00:00 MEDICAID [place] PENDING 2021 PENDING [...] of 11-23 ity of adult adult 00:00: Medical Branch Hemorrhoid Hemorrhoid Disease Active U nivers s s 6 ity of 00:00: Medical Branch Contracept Contracept Disease Active U nivers sanjuana sanjuana 11-23 ity of management management 00:[place]: [place] [facility] External External Disease Active Overview: Un chris hemorrhoid hemorrhoid 208 [place] ity of s s 00:00: g of this [place] 00 note Medical might be Branch different from the original. ICD10 Diagnosis Term Physician Specialist Utility Asthma Asthma Disease Active Overview: Univer s 2-08 Form[place] ity of 00:00: g of this [place] 00 note Medical might be Branch different from the original. ICD10 Diagnosis Term Physician Specialist Utility Mental Mental Disease Active Univers disorder disorder 2-08 ity of 00:00: [place] 00 Medical Branch Encounter Encounter Disease Active Overview: Univers for for 208 [address] ity of routine routine 00:00: g of this [place] gynecologi gynecologi 00 note Me dical gracie gracie might be Branch examinatio examinatio different n n from the original. ICD10 Diagnosis Term Physician Specialist Utility Morbid Morbid Disease Active Univers obesity obesity 2-08 ity of 00:00: [place] 00 Medical Branch Depression Depression Disease Active U nivers 2-08 ity of 00:00: [place] [facility] Generalize Generalize Disease Active U nivers d anxiety d anxiety 2-08 ity of disorder disorder 00:00: Medical Branch Seizure Seizure Disease Active Univers disorder disorder 2-08 ity of 00:00: 00 Medical Branch Allergies, Adverse Reactions, Alerts Allergy Allergy Status Severity Reaction(s) Onset Inactive Treating Comm ents Source Name Type Date Date Clinician No Known DA Active U [facility] Allergie 3-23 [place] 00:00: d 00 [facility] carbamaz DA Active U UNKNOWN [facility] epine 3- Herod 00:00: Regiona 00 l [facility] carbamaz DA Active U UNKNOWN [facility] epine 09-10 Herod 00:00: Regiona [facility] NO KNOWN Drug Active Univers ALLERGIE Class ity of S [facility] No Known DA Active [facility] Allergie [place] Social History Social Habit Start Date Stop Date Quantity Comments Source Exposure to 2022-09-14 2022-09-[address] [facility]-CoV-2 00:00:00 12:30:00 [facility] (event) [place] Alcohol intake 2022-09-10 2022-09-10 Current University of 00:00:00 00:00:00 non-drinker of [facility] alcohol (finding) [place] Tobacco use and 2014-07-05 2014-07-05 Smokeless tobacco Un iversity of exposure 00:00:00 00:00:00 non-user [facility] Sex Ass[birth year] Universit y of 00:00:00 00:00:00 [facility] Smoking Status Start Date Stop Date Source Never smoked tobacco [facility] Medications Ordered Filled Start Stop Current Ordering [...] Branch 09/09/22 at 2115, STAT hydrOXYzine Yes [id number] 25mg Take 1 Univers 25 mg 3-19 tablet by ity of tablet 00:00: mouth [place] 00 every 6 Medical (six) Branch hours. levETIRAcet Yes [id number] 500mg Take 1 Univers am (KEPPRA) - tablet by ity of 500 mg 00:00: mouth 2 [place] tablet 00 (two) Medical times Branch daily. hydrOXYzine 2023-0 Yes [id number] 25mg Take 1 Univers 25 mg 3-19 tablet by ity of tablet 00:00: mouth [place] 00 every 6 Medical (six) Branch hours. levETIRAcet 2023-0 Yes [id number] 500mg Take 1 Univers am (KEPPRA) 3-19 tablet by ity of 500 mg 00:00: mouth 2 [place] tablet 00 (two) Medical times Branch daily. hydrOXYzine 2023-0 Yes [id number] 25mg Take 1 Univers 25 mg 3-19 tablet by ity of tablet 00:00: mouth [place] 00 every 6 Medical (six) Branch hours. levETIRAcet 2023-0 Yes [id number] 500mg Take 1 Univers am (KEPPRA) 3-19 tablet by ity of 500 mg 00:00: mouth 2 [place] tablet 00 (two) Medical times Branch daily. hydrOXYzine 2023-0 Yes [id number] 25mg Take 1 Univers 25 mg 3-19 tablet by ity of tablet 00:00: mouth [place] 00 every 6 Medical (six) Branch hours. levETIRAcet 2023-0 Yes [id number] 500mg Take 1 Univers am (KEPPRA) 3-19 tablet by ity of 500 mg 00:00: mouth 2 [place] tablet 00 (two) Medical times Branch daily. hydrOXYzine 2023-0 Yes [id number] 25mg Take 1 Univers 25 mg 3-19 tablet by ity of tablet 00:00: mouth [place] 00 every 6 Medical (six) Branch hours. levETIRAcet 2023-0 Yes [id number] 500mg Take 1 Univers am (KEPPRA) 3-19 [...] 00 AND 1 TABLET AT BEDTIME acetaminoph 2021- No 1000mg 1,000 mg, Univers en 10-02 Oral, ity of (TYLENOL) 22:15: 23:27 ONCE, 1 [place] tablet 00 :[place] dose, On Medical 1,000 mg Mon Branch 10/02/21 at 1715, AYESHA ibuprofen 2021- No 600mg 600 mg, Uni vers [...] Indication s: acute pain naproxen 2020-06 Yes [id number] 550mg Take 1 U nivers sodium 1-12 [...] Indication s: acute pain naproxen 2020-06 Yes [id number] 550mg Take 1 U nivers sodium 1-12 [...] Indication s: acute pain naproxen 2020-06 Yes [id number] 550mg Take 1 U nivers sodium 1-12 [...] Indication s: acute pain naproxen 2020-06 Yes [id number] 550mg Take 1 U nivers sodium 1-12 [...] Indication s: acute pain naproxen 2020-06 Yes [id number] 550mg Take 1 U nivers sodium 1-12 [...] Indication s: acute pain naproxen 2020-06 Yes [id number] 550mg Take 1 U nivers sodium 1-12 [...] Indication s: acute pain naproxen 2020-06 Yes [id number] 550mg Take 1 U nivers sodium 1-12 [...] Indication s: acute pain naproxen 2020-06 Yes [id number] 550mg Take 1 U nivers sodium 1-12 tablet by ity of (ANAPROX 00:00: mouth 2 [place] DS) 550 mg 00 (two) Medical tablet times Branch daily with meals. ibuprofen 2020-06 No 1mg 600 mg 1-11 tablet 00:00: 00 amoxicillin 2020-0 Yes [id number] 1{tbl} Take 1 Univers -clavulanat 2-20 tablet by ity of e 875-125 00:00: mouth [place] mg per 00 every 12 Medical tablet (twelve) Branch hours. amoxicillin 2020-0 Yes [id number] 1{tbl} Take 1 Univers -clavulanat 2-20 tablet by ity of e 875-125 00:00: mouth [place] mg per 00 every 12 Medical tablet (twelve) Branch hours. amoxicillin 2020-0 Yes [id number] 1{tbl} Take 1 Univers -clavulanat 2-20 tablet by ity of e 875-125 00:00: mouth [place] mg per 00 every 12 Medical tablet (twelve) Branch hours. amoxicillin 2020-0 Yes [id number] 1{tbl} Take 1 Univers -clavulanat 2-20 tablet by ity of e 875-125 00:00: mouth [place] mg per 00 every 12 Medical tablet (twelve) Branch hours. amoxicillin 2020-0 Yes [id number] 1{tbl} Take 1 Univers -clavulanat 2-20 tablet by ity of e 875-125 00:00: mouth [place] mg per 00 every 12 Medical tablet (twelve) Branch hours. amoxicillin 2020-0 Yes [id number] 1{tbl} Take 1 Univers -clavulanat 2-20 tablet by ity of e 875-125 00:00: mouth [place] mg per 00 every 12 Medical tablet (twelve) Branch hours. amoxicillin 2020-0 Yes [id number] 1{tbl} Take 1 Univers -clavulanat 2-20 tablet by ity of e 875-125 00:00: mouth [place] mg per 00 every 12 Medical tablet (twelve) Branch hours. amoxicillin 2020-0 Yes [id number] 1{tbl} Take 1 Univers -clavulanat 2-20 tablet by ity of e 875-125 00:00: mouth [place] mg per 00 every 12 Medical tablet (twelve) Branch hours. amoxicillin 2020-0 Yes [id number] 1{tbl} Take 1 Univers -clavulanat 2-20 tablet by ity of e 875-125 00:00: mouth [place] mg per 00 every 12 Medical tablet (twelve) Branch hours. amoxicillin 2020-0 Yes [id number] 1{tbl} Take 1 Univers -clavulanat 2-20 tablet by ity of e 875-125 00:00: mouth [place] mg per 00 every 12 Medical tablet (twelve) Branch hours. amoxicillin 2020-0 Yes [id number] 1{tbl} Take 1 Univers -clavulanat 2-20 tablet by ity of e 875-125 00:00: mouth [place] mg per 00 every 12 Medical tablet (twelve) Branch hours. amoxicillin 2020-0 Yes [id number] 1{tbl} Take 1 Univers -clavulanat 2-20 tablet by ity of e 875-125 00:00: mouth [place] mg per 00 every 12 Medical tablet (twelve) Branch hours. clindamycin 2019-0 2020- No [id number] 300mg Take 1 Univers 300 mg 2-20 08-23 capsule by ity of capsule 00:00: 05:59 mouth 4 [place] 00 :00 (four) Medical times Branch daily for 10 days. methocarbam 2019-0 2020- No 1000mg 1,000 mg, Univers ol 07-23 Oral, ity of (ROBAXIN) 00:30: 23:39 ONCE, 1 [place] tablet 00 :00 dose, Wed Medical 1,000 mg 07/22/19 at [facility] h 1830, Routine Keflex 500 No 1mg mg capsule 07-23 00:00: 00 Bromfed DM 2019-0 No 5mg/5 2 mg-30 07-23 mL mg-10 mg/5 00:00: mL oral 00 syrup ketorolac 2019-0 2020- No 30mg 30 mg, Unive rs (TORADOL) 07-23 Intramuscu ity of injection 00:00: 23:00 lar, ONCE, [place] 30 mg 00 :00 1 dose, Medical Wed Branch 07/22/19 at 1800, Routine
crew team member approving Restricted medication : LISA MORFIN mupirocin 2 2019-0 No 1% % topical 07-16 ointment 00:00: 00 Keflex 500 2019-0 No 1mg mg capsule 07-16 00:00: 00 ketorolac 2019-0 2019- No 30mg 30 mg, Unive rs (TORADOL) 07-14 Intramuscu ity of injection 03:30: 02:57 lar, ONCE, [place] 30 mg 00 :00 1 dose, Medical Mon Branch 07/13/19 at 2130, AYESHA
[facility] : HENRY OWEN ketorolac 2019-2019- No [id number] 10mg Take 1 Univers 10 mg 07-13 tablet by ity of tablet 00:00: 05:59 mouth [place] 00 :00 every 8 Medical (eight) Branch hours for 5 days. mupirocin 2 0 No 1% % topical 17 ointment 00:00: 00 ibuprofen 2019-0 No 1mg 800 mg -17 tablet 00:00: 00 Keflex 500 2019-0 No 1mg mg capsule 07-10 00:00: 00 traMADol 50 2019-0 Yes [id number] 50mg Take 1 Univers mg tablet 1-11 tablet by ity o f 00:00: mouth [place] 00 every 6 Medical (six) Branch hours as needed for Pain (scale 7-10). cephALEXin 2020-0 Yes [id number] 500mg Take 1 Univers (KEFLEX) 1-11 [id number] capsule by ity of 500 mg 00:00: mouth 4 [place] capsule 00 (four) Medical times Branch daily. traMADol 50 2019-0 Yes [id number] 50mg Take 1 Univers mg tablet 1-11 tablet by ity o f 00:00: mouth [place] 00 every 6 Medical (six) Branch hours as needed for Pain (scale 7-10). cephALEXin 2020-0 Yes [id number] 500mg Take 1 Univers (KEFLEX) 1-11 [id number] capsule by ity of 500 mg 00:00: mouth 4 [place] capsule 00 (four) Medical times Branch daily. traMADol 50 2020-0 Yes [id number] 50mg Take 1 Univers mg tablet 1-11 tablet by ity o f 00:00: mouth [place] 00 every 6 Medical (six) Branch hours as needed for Pain (scale 7-10). cephALEXin 2020-0 Yes [id number] 500mg Take 1 Univers (KEFLEX) 1-11 [id number] capsule by ity of 500 mg 00:00: mouth 4 [place] capsule 00 (four) Medical times Branch daily. traMADol 50 2020-0 Yes [id number] 50mg Take 1 Univers mg tablet 1-11 tablet by ity o f 00:00: mouth [place] 00 every 6 Medical (six) Branch hours as needed for Pain (scale 7-10). cephALEXin 2020-0 Yes [id number] 500mg Take 1 Univers (KEFLEX) 1- [id number] capsule by ity of 500 mg 00:00: mouth 4 [place] capsule 00 (four) Medical times Branch daily. cephALEXin 2020-0 Yes [id number] 500mg Take 1 Univers (KEFLEX) 1- [id number] capsule by ity of 500 mg 00:00: mouth 4 [place] capsule 00 (four) Medical times Branch daily. cephALEXin 2020-0 Yes [id number] 500mg Take 1 Univers (KEFLEX) 1- [id number] capsule by ity of 500 mg 00:00: mouth 4 [place] capsule 00 (four) Medical times Branch daily. cephALEXin 2020-0 Yes [id number] 500mg Take 1 Univers (KEFLEX) 1- [id number] capsule by ity of 500 mg 00:00: mouth 4 [place] capsule 00 (four) Medical times Branch daily. cephALEXin 2020-0 Yes [id number] 500mg Take 1 Univers (KEFLEX) 1- [id number] capsule by ity of 500 mg 00:00: mouth 4 [place] capsule 00 (four) Medical times Branch daily. cephALEXin 2020-0 Yes [id number] 500mg Take 1 Univers (KEFLEX) 1- [id number] capsule by ity of 500 mg 00:00: mouth 4 [place] capsule 00 (four) Medical times Branch daily. cephALEXin 2020-0 Yes [id number] 500mg Take 1 Univers (KEFLEX) 1-11 [id number] capsule by ity of 500 mg 00:00: mouth 4 [place] capsule 00 (four) Medical times Branch daily. cephALEXin 2020-0 Yes [id number] 500mg Take 1 Univers (KEFLEX) 1-11 [id number] capsule by ity of 500 mg 00:00: mouth 4 [place] capsule 00 (four) Medical times Branch daily. cephALEXin 2020-0 Yes [id number] 500mg Take 1 Univers (KEFLEX) 1-11 [id number] capsule by ity of 500 mg 00:00: mouth 4 [place] capsule 00 (four) Medical times Branch daily. traMADol 50 2020-0 Yes [id number] 50mg Take 1 Univers mg tablet 1-11 tablet by ity o f 00:00: mouth [place] 00 every 6 Medical (six) Branch hours as needed for Pain (scale 7-10). cephALEXin 2020-0 Yes [id number] 500mg Take 1 Univers (KEFLEX) 1-11 [id number] capsule by ity of 500 mg 00:00: mouth 4 [place] capsule 00 (four) Medical times Branch daily. traMADol 50 2020-0 Yes [id number] 50mg Take 1 Univers mg tablet 1-11 tablet by ity o f 00:00: mouth [place] 00 every 6 Medical (six) Branch hours as needed for Pain (scale 7-10). cephALEXin 2020-0 Yes [id number] 500mg Take 1 Univers (KEFLEX) 1-11 [id number] capsule by ity of 500 mg 00:00: mouth 4 [place] capsule 00 (four) Medical times Branch daily. traMADol 50 2020-0 Yes [id number] 50mg Take 1 Univers mg tablet 1-11 tablet by ity o f 00:00: mouth [place] 00 every 6 Medical (six) Branch hours as needed for Pain (scale 7-10). cephALEXin 2020-0 Yes [id number] 500mg Take 1 Univers (KEFLEX) 1-11 [id number] capsule by ity of 500 mg 00:00: mouth 4 [place] capsule 00 (four) Medical times Branch daily. traMADol 50 2019-0 2020- No [id number] 50mg Take 1 Univers mg tablet 1-11 11-12 tablet by ity of 00:00: 00:00 mouth [place] 00 :00 every 6 Medical (six) Branch hours as needed for Pain (scale 7-10). bacitracin 2020-0 2020- No [id number] Apply to Univers 500 07-04 affected ity of unit/gram 00:00: 05:59 area(s) 2 [place] ointment 00 :00 (two) Medical times Branch daily for 10 days. bacitracin 2020-0 2020- No [id number] Apply to Univers 500 -07-15 affected ity of unit/gram 00:00: 05:59 area(s) 2 [place] ointment 00 :00 (two) Medical times Branch daily for 10 days. traMADol 50 2020-0 Yes [id number] 50mg Take 1 Univers mg tablet 1-07 tablet by ity o f 00:00: mouth [place] 00 every 6 Medical (six) Branch hours as needed for Pain (scale 7-10). traMADol 50 2020-0 Yes [id number] 50mg Take 1 Univers mg tablet 1-07 tablet by ity o f 00:00: mouth [place] 00 every 6 Medical (six) Branch hours as needed for Pain (scale 7-10). traMADol 50 2020-0 Yes [id number] 50mg Take 1 Univers mg tablet 1-07 tablet by ity o f 00:00: mouth [place] 00 every 6 Medical (six) Branch hours as needed for Pain (scale 7-10). traMADol 50 2020-0 Yes [id number] 50mg Take 1 Univers mg tablet 1-07 tablet by ity o f 00:00: mouth [place] 00 every 6 Medical (six) Branch hours as needed for Pain (scale 7-10). traMADol 50 2020-0 Yes [id number] 50mg Take 1 Univers mg tablet 1-07 tablet by ity o f 00:00: mouth [place] 00 every 6 Medical (six) Branch hours as needed for Pain (scale 7-10). traMADol 50 2020-0 Yes [id number] 50mg Take 1 Univers mg tablet 1-07 tablet by ity o f 00:00: mouth [place] 00 every 6 Medical (six) Branch hours as needed for Pain (scale 7-10). traMADol 50 2020-0 Yes [id number] 50mg Take 1 Univers mg tablet 1-07 tablet by ity o f 00:00: mouth [place] 00 every 6 Medical (six) Branch hours as needed for Pain (scale 7-10). traMADol 50 2020-0 2020- No [id number] 50mg Take 1 Univers mg tablet 1-07 [...] acid 2019-0 No 1mg 1 mg tablet -17 00:00: 00 Dose 2017-06 No Unknown 2-18 00:00: 00 Depakote 2017-06 No 1mg 500 mg 2-18 tablet,nette 00:00: yed release 00 Trileptal 2017-06 No 2mg 300 mg 2-18 tablet 00:00: 00 Bactrim DS 2017-06 No 1mg 800 mg-160 2-18 mg tablet 00:00: 00 ARIPiprazol Yes 2mg Take 2 mg U nivers e (ABILIFY) 5-01 by mouth ity of 2 mg tablet 00:58: daily. [address] ARIPiprazol Yes 2mg Take 2 mg U nivers e (ABILIFY) 5-01 by mouth ity of 2 mg tablet 00:58: daily. [address] ARIPiprazol Yes 2mg Take 2 mg U nivers e (ABILIFY) 5-01 by mouth ity of 2 mg tablet 00:58: daily. [address] ARIPiprazol Yes 2mg Take 2 mg U nivers e (ABILIFY) 5-01 by mouth ity of 2 mg tablet 00:58: daily. [address] ARIPiprazol Yes 2mg Take 2 mg U nivers e (ABILIFY) 5-01 by mouth ity of 2 mg tablet 00:58: daily. [address] ARIPiprazol Yes 2mg Take 2 mg U nivers e (ABILIFY) 5-01 by mouth ity of 2 mg tablet 00:58: daily. [address] ARIPiprazol Yes 2mg Take 2 mg U nivers e (ABILIFY) 5-01 by mouth ity of 2 mg tablet 00:58: daily. [address] divalproex Yes 500mg Take 500 Un [...] (TRILEPTAL) 00:58: [place] 300 mg 10 Medical [facility] ARIPiprazol Yes 2mg Take 2 mg U nivers e (ABILIFY) 4-30 by mouth ity of 2 mg tablet 19:58: daily. [address] ARIPiprazol Yes 2mg Take 2 mg U nivers e (ABILIFY) 4-30 by mouth ity of 2 mg tablet 19:58: daily. [address] ARIPiprazol Yes 2mg Take 2 mg U nivers e (ABILIFY) 4-30 by mouth ity of 2 mg tablet 19:58: daily. [address] ARIPiprazol Yes 2mg Take 2 mg U nivers e (ABILIFY) 4-30 by mouth ity of 2 mg tablet 19:58: daily. [address] ARIPiprazol Yes 2mg Take 2 mg U nivers e (ABILIFY) 4-30 by mouth ity of 2 mg tablet 19:58: daily. [address] ARIPiprazol Yes 2mg Take 2 mg U nivers e (ABILIFY) 4-30 by mouth ity of 2 mg tablet 19:58: daily. [address] ARIPiprazol 0 Yes 2mg Take 2 mg U nivers e (ABILIFY) 4-30 by mouth ity of 2 mg tablet 19:58: daily. [address] ARIPiprazol 0 Yes 2mg Take 2 mg U nivers e (ABILIFY) 4-30 by mouth ity of 2 mg tablet 19:58: daily. [address] ARIPiprazol Yes 2mg Take 2 mg [...] Medical suppository (two) Branch times daily. Trileptal 2015-0 No 2mg 300 mg 8-09 tablet 00:00: [...] Status Commen ts Source Name Name Patrick AGID-19 2022-01-08 Completed Vaccine 00:00:00 Moderna COVID-19 2020-09-27 Completed Vaccine 00:00:00 Moderna COVID-19 2020-08-26 Completed Vaccine 00:00:00 Vital Signs Vital Name Observation Time Observation Value Comments Source Height 2022-11-04 14:04:00 149.86 CM Weight 2022-11-04 14:04:00 73.02 KG Systolic blood 2022-09-24 17:32:00 130 mm[Hg] Univer sity of pressure [facility] Diastolic blood 2022-09-24 17:32:00 85 mm[Hg] Unive rsity of pressure [facility] Heart rate 2022-09-24 17:32:00 64 /min Universi ty of [facility] Body temperature 2022-09-24 17:32:00 36.83 Oma Univ ersity of [facility] Respiratory rate 2022-09-24 17:32:00 18 /min Univ ersity of [facility] Body weight 2022-09-24 17:32:00 74.844 kg Universi ty of [facility] BMI 2022-09-24 17:32:00 33.33 kg/m2 Universi ty [facility] Oxygen saturation in 2022-09-24 17:32:00 99 /min University of Arterial blood by [facility] Pulse oximetry Branch Systolic blood 2022-09-10 23:55:00 111 mm[Hg] Univer sity of pressure [facility] Diastolic blood 2022-09-10 23:55:00 84 mm[Hg] Unive rsity of pressure [facility] Heart rate 2022-09-10 23:55:00 105 /min Universi ty of [facility] Body temperature 2022-09-10 23:55:00 37.33 Oma Univ ersity of [facility] Branch Respiratory rate 2022-09-10 23:55:00 19 /min Univ ersity of [facility] Branch Systolic blood 2022-09-10 01:44:00 126 mm[Hg] Univer sity of pressure [facility] Diastolic blood 2022-09-10 01:44:00 81 mm[Hg] Unive rsity of pressure [facility] Heart rate 2022-09-10 01:44:00 78 /min Universi ty of [facility] Body temperature 2022-09-10 01:44:00 36.56 Oma Univ ersity of [place] [facility] Respiratory rate 2022-09-10 01:44:00 16 /min Univ ersity of [place] [facility] Body weight 2022-09-10 01:44:00 79.379 kg Universi ty of [place] [facility] BMI 2022-09-10 01:44:00 35.35 kg/m2 Universi ty of [place] [facility] Oxygen saturation in 2022-09-10 01:44:00 100 /min University of Arterial blood by [facility] Pulse oximetry Branch Systolic blood 2022-09-07 05:37:00 119 mm[Hg] Univer sity of pressure [place] [facility] Diastolic blood 2022-09-07 05:37:00 67 mm[Hg] Unive rsity of pressure [place] [facility] Heart rate 2022-09-07 05:37:00 79 /min Universi ty of [place] [facility] Respiratory rate 2022-09-07 05:37:00 16 /min Univ ersity of [place] [facility] Oxygen saturation in 2022-09-07 05:37:00 98 /min University of Arterial blood by [facility] Pulse oximetry Branch Body temperature 2022-09-06 23:05:00 36.78 [place]ma Univ ersity of [place] [facility] Body weight 2022-09-06 23:05:00 79.379 kg Universi ty of [place] [facility] BMI 2022-09-06 23:05:00 35.35 kg/m2 Universi ty of [place] [facility] Systolic blood 2021-10-02 20:55:00 111 mm[Hg] Univer sity of pressure [place] [facility] Diastolic blood 2021-10-02 20:55:00 70 mm[Hg] Unive rsity of pressure [place] [facility] Heart rate 2021-10-02 20:55:00 79 /min Universi ty of [place] [facility] Body temperature 2021-10-02 20:55:00 36.61 Oma Univ ersity of [place] [facility] Respiratory rate 2021-10-02 20:55:00 18 /min Univ ersity of [place] [facility] Body height 2021-10-02 20:55:00 149.9 cm Universi ty of [place] [facility] Body weight 2021-10-02 20:55:00 79.379 kg Universi ty of [place] [facility] BMI 2021-10-02 20:55:00 35.35 kg/m2 Universi ty of [place] [facility] Oxygen saturation in 2021-10-02 20:55:00 100 /min University of Arterial blood by [place] [facility]i gracie Pulse oximetry Branch Systolic blood 2021-05-05 19:20:00 102 mm[Hg] Univer sity of pressure [place] [facility] Diastolic blood 2021-05-05 19:20:00 48 mm[Hg] Unive rsity of pressure [place] [facility] Heart rate 2021-05-05 19:20:00 68 /min Universi ty of [place] [facility] Body temperature 2021-05-05 19:20:00 36.94 Oma Univ ersity of [place] [facility] Respiratory rate 2021-05-05 19:20:00 18 /min Univ ersity of [place] [facility] Body weight 2021-05-05 19:20:00 79.379 kg Universi ty of [place] [facility] BMI 2021-05-05 19:20:00 35.35 kg/m2 Universi ty of [place] [facility] Oxygen saturation in 2021-05-05 19:20:00 99 /min University of Arterial blood by [facility] Pulse oximetry Branch Systolic blood 2019-12-15 22:12:00 138 mm[Hg] Univer sity of pressure [place] [facility] Diastolic blood 2019-12-15 22:12:00 100 mm[Hg] Unive rsity of pressure [place] [facility] Heart rate 2019-12-15 22:12:00 77 /min Universi ty of [place] [facility] Body temperature 2019-12-15 22:12:00 37.06 Oma Univ ersity of [place] [facility] Respiratory rate 2019-12-15 22:12:00 20 /min Univ ersity of [place] [facility] Body weight 2019-12-15 22:12:00 79.379 kg Universi ty of [place] [facility] BMI 2019-12-15 22:12:00 35.35 kg/m2 Universi ty of [place] [facility] Oxygen saturation in 2019-12-15 22:12:00 100 /min University of Arterial blood by [place] Medi gracie Pulse oximetry Branch Systolic blood 2019-12-15 22:12:00 138 mm[Hg] Univer sity of pressure [place] [facility] Diastolic blood 2019-12-15 22:12:00 100 mm[Hg] Unive rsity of pressure [place] [facility] Heart rate 2019-12-15 22:12:00 77 /min Universi ty of [place] [facility] Body temperature 2019-12-15 22:12:00 37.06 Oma Univ ersity of [place] [facility] Respiratory rate 2019-12-15 22:12:00 20 /min Univ ersity of [place] [facility] Body weight 2019-12-15 22:12:00 79.379 kg [facility] BMI 2019-12-15 22:12:00 35.35 kg/m2 [facility] Oxygen saturation in 2019-12-15 22:12:00 100 /min [facility] by [place] [employer] gracie Pulse oximetry Branch Respiratory rate 2019-10-25 23:43:00 18 /min [facility] Body weight 2019-10-25 23:43:00 83.915 kg [facility] BMI 2019-10-25 23:43:00 37.37 kg/m2 [facility] Respiratory rate 2019-10-25 23:43:00 18 /min [facility] Body weight 2019-10-25 23:43:00 83.915 kg [facility] BMI 2019-10-25 23:43:00 37.37 kg/m2 [facility] Systolic blood 2019-08-13 19:25:00 123 mm[Hg] [facility] [place] [facility] Diastolic blood 2019-08-13 19:25:00 88 mm[Hg] Unive rsity of pressure [facility] Heart rate 2019-08-13 19:25:00 78 /min [facility] Body temperature 2019-08-13 19:25:00 36.56 Oma [facility] Respiratory rate 2019-08-13 19:25:00 18 /min [facility] Body height 2019-08-13 19:25:00 149.9 cm [facility] Body weight 2019-08-13 19:25:00 90.719 kg [facility] BMI 2019-08-13 19:25:00 40.40 kg/m2 [facility] Oxygen saturation in 2019-08-13 19:25:00 100 /min [facility] Arterial blood by [employer] gracie Pulse oximetry Branch Systolic blood 2019-08-13 19:25:00 123 mm[Hg] [facility] [place] [facility] Diastolic blood 2019-08-13 19:25:00 88 mm[Hg] [facility] [place] [facility] Heart rate 2019-08-13 19:25:00 78 /min [facility] Body temperature 2019-08-13 19:25:00 36.56 Oma [facility] Respiratory rate 2019-08-13 19:25:00 18 /min [facility] Body height 2019-08-13 19:25:00 149.9 cm [facility] Body weight 2019-08-13 19:25:00 90.719 kg [facility] BMI 2019-08-13 19:25:00 40.40 kg/m2 [facility] Oxygen saturation in 2019-08-13 19:25:00 100 /min [facility] Arterial blood by [facility] Pulse oximetry Branch Systolic blood 2019-07-23 00:20:15 120 mm[Hg] [facility] [place] [facility] Diastolic blood 2019-07-23 00:20:15 74 mm[Hg] [facility] Heart rate 2019-07-23 00:20:15 82 /min [facility] Respiratory rate 2019-07-23 00:20:15 19 /min [facility] Oxygen saturation in 2019-07-23 00:20:15 100 /min [facility]terial blood by [facility] Pulse oximetry Branch Body temperature 2019-07-22 19:41:00 36.33 Oma [facility] Body weight 2019-07-22 19:39:00 90.719 kg [facility] BMI 2019-07-22 19:39:00 39.06 kg/m2 [facility] Systolic blood 2019-07-23 00:20:15 120 mm[Hg] [facility] [place] [facility] Diastolic blood 2019-07-23 00:20:15 74 mm[Hg] [facility] [place] [facility] Heart rate 2019-07-23 00:20:15 82 /min [facility] Respiratory rate 2019-07-23 00:20:15 19 /min [facility] Oxygen saturation in 2019-07-23 00:20:15 100 /min [facility] blood by [facility] Pulse oximetry Branch Body temperature 2019-07-22 19:41:00 36.33 Oma [facility] Body weight 2019-07-22 19:39:00 90.719 kg [facility] BMI 2019-07-22 19:39:00 39.06 kg/m2 [facility] Systolic blood 2019-07-14 03:33:00 127 mm[Hg] [facility] [place] [facility] Diastolic blood 2019-07-14 03:33:00 88 mm[Hg] [facility] Heart rate 2019-07-14 03:33:00 79 /min [facility] Respiratory rate 2019-07-14 03:33:00 16 /min [facility] Oxygen saturation in 2019-07-14 03:33:00 97 /min [facility] blood by [facility] Pulse oximetry Branch Body weight 2019-07-14 02:16:00 90.719 kg [facility] BMI 2019-07-14 02:16:00 39.06 kg/m2 [facility] Body temperature 2019-07-14 02:15:00 36.78 Oma [facility] Body weight 2019-07-10 20:39:00 90.719 kg [facility] BMI 2019-07-10 20:39:00 39.06 kg/m2 [facility] Systolic blood 2019-01-21 23:34:00 133 mm[Hg] [facility] [place] [facility] Diastolic blood 2019-01-21 23:34:00 78 mm[Hg] [facility] [place] [facility] Heart rate 2019-01-21 23:34:00 66 /min [facility] Body temperature 2019-01-21 23:34:00 36.94 Oma [facility] Respiratory rate 2019-01-21 23:34:00 18 /min [facility] Body height 2019-01-21 23:34:00 147.3 cm [facility] Body weight 2019-01-21 23:34:00 68.04 kg [facility] BMI 2019-01-21 23:34:00 31.35 kg/m2 [facility] Oxygen saturation in 2019-01-21 23:34:00 100 /min [facility]ial blood by [facility] Pulse oximetry Branch Systolic blood 2019-01-21 23:34:00 133 mm[Hg] [facility] [place] [facility] Diastolic blood 2019-01-21 23:34:00 78 mm[Hg] Unive rsity of pressure [facility] Heart rate 2019-01-21 23:34:00 66 /min [facility] [place] [facility] [place] Body temperature 2019-01-21 23:34:00 36.94 Oma [facility] Respiratory rate 2019-01-21 23:34:00 18 /min [facility] Body height 2019-01-21 23:34:00 147.3 cm Universi ty [facility] Body weight 2019-01-21 23:34:00 68.04 kg Universi [facility] BMI 2019-01-21 23:34:00 31.35 kg/m2 [facility] Oxygen saturation in 2019-01-21 23:34:00 100 /min [facility] Ar[facility]ial blood by [facility] Pulse oximetry Branch BP [...] COMP. METABOLIC PANEL 2022-09-07 01:38:00 Tayo Boyd [facility] ([id number]) [facility] CBC WITH DIFF 2022-09-07 01:38:00 Tayo Boyd [facility] URINALYSIS 2022-09-07 01:38:00 Tayo Boyd [facility] XR ANKLE <3 VW LEFT 2022-09-07 00:56:00 Tayo Boyd [facility] XR FOOT <3 VW LEFT 2022-09-07 00:56:00 Tayo Boyd [facility] CONSENT/REFUSAL FOR 2022-09-06 22:08:37 Doctor Unassigned, No [facility] Name Medical Branch CT CERVICAL SPINE WO 2021-10-02 21:53:00 Javed Frank [facility] CONTRAST [facility] CT LUMBAR SPINE WO 2021-10-02 21:53:00 Javed [facility] CONTRAST [facility] CT THORACIC SPINE WO 2021-10-02 21:53:[address] [facility] [place] CONTRAST [facility] XR FOREARM 2 VW RIGHT 2021-05-05 20:03:34 Deon Nunez [facility] XR WRIST 3+ VW RIGHT 2021-05-05 20:03:34 Deon Nunez [facility] NOTICE OF PRIVACY 2021-05-05 19:12:00 Doctor Unassigned, No [facility] [place] [facility] Name Medical Branch CONSENT/REFUSAL FOR 2021-05-05 19:11:19 Doctor Unassigned, No [facility] [place] [facility] Name [facility] CONSENT/REFUSAL FOR 2019-08-13 19:17:22 Doctor Unassigned, No [facility] [place] [facility] TREATMENT Name [facility] CT HEAD WO CONTRAST 2019-07-22 22:24:37 Ofe Samayoa [facility] XR CERVICAL SPINE 2 VW 2019-07-22 21:59:59 [facility] CBC WITH DIFFERENTIAL 2019-07-22 21:34:00 Ofe Samayoa [facility] XR CERVICAL SPINE 2 VW 2019-07-14 02:43:00 Henry Owen [facility] XR ELBOW <3 VW LEFT 2019-07-14 02:43:00 Henry Owen [facility] XR KNEE <3 VW RIGHT 2019-07-14 02:43:00 Henry Owen [facility] XR SHOULDER <2 VW LEFT 2019-07-14 02:43:00 Henry Owen [facility] [address] Ecg Routine Ecg 2017-09-24 00:00:00 W/least 12 Lds W/i r Plan of Care Planned Activity Planned Date Details Comments Source Goal Plan of Care Note [code = 02991-3] Goal Plan of Care Note [code = 88153-9] Goal Plan of Care Note [code = 58719-0] Goal Plan of Care Note [code = 36594-4] Goal Plan of Care Note [code = 56253-6] Goal Plan of Care Note [code = 61180-3] Goal Plan of Care Note [code = 73005-1] Goal Plan of Care Note [code = 93879-9] Goal Plan of Care Note [code = 78700-2] Goal Plan of Care Note [code = 18721-7] Goal Plan of Care Note [code = 92036-6] Goal Plan of Care Note [code = 93002-0] Goal Plan of Care Note [code = 43999-4] Goal Plan of Care Note [code = 17539-1] Goal Plan of Care Note [code = 25300-3] Goal Plan of Care Note [code = 54112-8] Goal Plan of Care Note [code = 56886-9] Goal Plan of Care Note [code = 57293-4] Goal Plan of Care Note [code = 85240-9] Goal Plan of Care Note [code = 32305-6] Goal Plan of Care Note [code = 80680-6] Goal Plan of Care Note [code = 38288-3] Goal Plan of Care Note [code = 35229-5] Goal Plan of Care Note [code = 03307-7] Goal Plan of Care Note [code = 62265-2] Goal Plan of Care Note [code = 61410-2] Goal Plan of Care Note [code = 86339-9] Goal Plan of Care Note [code = 23801-5] Goal Plan of Care Note [code = 40531-8] Encounters Start End Encounter Admission Attending Care Care Encounter Source Date/Time Date/Time Type Type Clinicians Facility Department ID 2022-11-13 Inpatient [facility] [id number] [place] 13:10:28 [id number] [place] 2022-11-05 Inpatient [facility] [id number] [facility] 09:23:13 [id number] [place] 2023-01-09 2023-01-09 Outpatient [facility] [id number] Henry 17:11:26 17:11:26 0719 F [place] 2022-11-04 2022-11-05 Emergency Linda PAIGE [facility] [id number] [place] 14:04:00 11:09:00 JESS argueta [place] 2022-09-24 2022-09-24 Emergency Gwendolyn, NCKIKA [id number] Univers 12:33:00 12:51:00 Heri PRATHER 350.1.13.10 i ty shell TRIANA 4.2.7.2.686 [facility] [id number] [facility] 084 Branch 2022-09-22 2022-09-22 Nurse Marisa COX 1.2.840.114 [id number] Univers 00:00:00 00:00:00 Triage deny Madhavi ALFORD 350.1.13.10 ity of [facility] 4.2.7.2.686 Dinesh as [id number] [facility] 019 Branch 2022-09-18 2022-09-19 Inpatient EM Marly Mendenhall [facility] OBSE [id number] [facility] 10:09:00 14:28:00 25 [facility] 2022-09-16 2022-09-17 Emergency EM Guero, [facility] FABI [id number] [facility] 22:50:00 01:40:00 Asim 33 [facility] 2022-09-14 2022-09-15 Inpatient EM Andrei, [facility] TELE [id number] [facility] 14:52:00 14:00:00 Vladimir 75 [facility] 2022-09-13 2022-09-13 Emergency EM Jose C, [facility] FABI [id number] [facility] 09:34:00 13:00:00 Brad 75 [facility] 2022-09-10 2022-09-11 Emergency EM Donato, [facility] [id number] [facility] 23:39:00 11:28:00 Russel 51 [facility] 2022-09-10 2022-09-10 Emergency Shelbie, Lisa S [place] 1.2.84 0.114 [id number] Univers 18:57:00 20:20:00 Sandrita Key [facility] 350.1.13.[address] [facility] [id number] [facility] 014 Branch 2022-09-10 2022-09-10 Emergency X YESI [facility] ERT [id number] Univers 18:57:00 20:20:00 SANDRITA [facility] 2022-09-09 2022-09-09 Emergency X YESI [facility] ERT [id number] Univers 20:45:00 22:46:00 SANDRITA [facility] 2022-09-09 2022-09-09 Emergency Key, TRAUMA [id number] Univers 20:45:00 22:46:00 Sandrita T CENTER 350.1.13.10 [id number] [address] 2022-09-06 2022-09-07 Emergency X VASUT, [facility] ERT [id number] Univers 18:09:00 00:51:00 TAYO ity of [facility] 2022-09-06 2022-09-07 Emergency Vasut, TRAU[place] [id number] Univers 18:09:00 00:51:00 Tayo [facility] 350.1.13.10 [id number] [address] 2022-08-21 2022-08-21 Outpatient SFA SFA [id number] Henry 14:11:33 14:11:33 0228 F Cantr[place] 2022-07-17 2022-07-17 Outpatient SFA SFA [id number] Henry 15:03:48 15:03:48 0124 F Cantr[place] 2022-07-17 2022-07-17 Outpatient [id number] [id number] 00:00:00 00:00:00 Visit [id number] 2021-10-02 2021-10-02 Emergency X ZAC, [facility] ERT [id number] Univers 15:56:00 19:00:00 JAVED thacker [facility] 2021-10-02 2021-10-02 Emergency Frank, [facility] 1.2.840.114 [id number] Univers 15:56:00 19:00:00 Javed PRATHER 350.1.13.10 i ty [place]2.[place] [facility] [id number] [place] [address] Branch 2021-05-05 2021-05-05 Emergency X , [facility] ERT [id number] Univers 13:22:00 14:48:00 DEON thacker [facility] 2021-05-05 2021-05-05 Emergency , [facility] 1.2.462.142 [id number] Univers 13:22:00 14:48:00 Deon PRATHER 350.1.13.10 i ty of [facility] 4.2.7.2.686 [facility] [id number] [address] 2021-05-05 2021-05-05 Orders Doctor KENNY 1.2.840.114 [id number] Univers 00:00:00 00:00:00 Only Unassigned, ROCÍO 350.1.13.10 ity of [facility] 4.2.7.2.686 [facility] [id number] [address] 2019-12-15 2019-12-15 Emergency Kp Gilliland [facility] 1.2.840.114 [id number] 17:11:56 18:04:00 Marissa Prather 350.1.13.10 [place] 4.2.7.2.686 [place] [id number] [facility] 2019-12-15 2019-12-15 Emergency Talat [facility] 1.2.840.114 [id number] Univers 17:11:56 18:04:00 Marissa Prather 350.1.13.10 i ty of [place] 4.2.7.[address] [place] [id number] 2019-12-15 2019-12-15 Emergency X TALAT, K [facility] ERT [id number] Univers 17:11:56 17:11:56 ity of [facility] 2019-10-25 2019-10-25 Emergency [facility] 1.2.786.145 [id number] 18:31:31 19:21:00 Kristin Prather 350.1.13.10 [place] 4.2.7.2.686 [place] [id number] [facility] 2019-10-25 2019-10-25 [facility] 1.2.682.553 [id number] Univers 18:31:31 19:21:00 Kristin Prather 350.1.13.10 i ty of [place] 4.2.7.2.686 [facility] [id number] [address] 2019-10-25 2019-10-25 Emergency [facility] ERT [id number] Univers 18:31:31 18:31:31 CYNISE ity [facility] 2019-08-13 2019-08-13 Emergency [facility] 1.2.299.418 [id number] 13:30:00 14:36:00 Floridalma Prather 350.1.13.10 [place] 4.2.7.2.686 [place] [id number] [facility] 2019-08-13 2019-08-13 Emergency [facility] 1.2.163.864 [id number] Univers 13:30:00 14:36:00 Floridalma Prather 350.1.13.10 i ty [place] [id number] [address] 2019-08-13 2019-08-13 Emergency [facility] ERT [id number] Univers 13:30:00 14:36:00 FLORIDALMA ity [facility] 2019-07-22 2019-07-22 Emergency Unknown, Attending [place] 1.2.8 40.114 [id number] 13:42:11 19:02:00 Lisa Morfin S CENTER 350.1.13.10 4.2.7.2.686 [id number] [facility] 2019-07-22 2019-07-22 Emergency [facility] ERT [id number] Univers 13:42:11 19:02:00 LISA ity [facility] 2019-07-22 2019-07-22 Emergency Unknown, Attending TRAUMA 1.2.8 40.114 [id number] Univers 13:42:11 19:02:00 Lisa Morfin S CENTER 350.1.13.10 [place] [id number] [address] 2019-07-13 2019-07-13 Emergency [facility] ERT [id number] Univers 20:17:19 21:48:00 HENRY ity [facility] 2019-07-13 2019-07-13 Emergency Lexie, TRAU[place] 1.2.864.160 [id number] Univers 20:17:19 21:48:00 Henry CENTER 350.1.13.10 it y of 4.2.7.2.686 [facility] [id number] [address] 2019-07-10 2019-07-10 Emergency [facility] ERT [id number] Univers 14:26:03 16:33:00 DEBBIE thacker [facility] 2019-07-10 2019-07-10 Emergency [facility] 1.2.840.114 [id number] Univers 14:26:03 16:33:00 Debbie Babb Lisa 350.1.13.10 ity of [place] 4.2.7.2.686 [facility] [id number] [address] 2019-07-04 2019-07-04 Emergency X SHELBIE [facility] ERT [id number] Univers 19:09:02 22:51:00 LISA thacker [facility] 2019-06-30 2019-06-30 Emergency X [facility] ERT [id number] Univers 10:33:08 13:10:00 DEON thacker [facility] 2019-05-25 2019-05-25 Emergency X [facility] ERT [id number] Univers 11:58:19 15:37:00 DEON thacker [facility] 2019-04-09 2019-04-09 Emergency [facility] ERT [id number] Univers 22:29:37 23:28:00 FLORIDALMA thacker [facility] 2019-01-21 2019-01-21 [facility] 1.2.072.415 [id number] 18:38:01 19:59:00 Le Prather 350.1.13.10 [place] 4.2.7.2.686 [place] [id number] [facility] 2019-01-21 2019-01-21 Emergency [facility] 1.2.971.341 [id number] Univers 18:38:01 19:59:00 Le Mota Lisa 350.1.13.10 ity of [place] 4.2.7.2.686 [facility] [id number] [address] Results Test Description Test Time Test [...] 200 ng/mL Opiates 300 ng/mL URINALYSIS WITH [id number] 04:56:00 Test Item Value Reference Range Interpretation [...] (test code = USPERM) /HPF NONE URINE [id number] 04:53:00 Test Item Value Reference Range Interpretation [...] the FDA and the [employer] the [employer] (CAP) are more stringent than those required for this test. Therefore, the result should be interpreted with caution and close attention to other clinical and epidemiological data [id number] 16:00:00 Test Item Value Reference Range Interpretation Comments SALICYLATE (test code = 94B) <3.0 mg/dL 15.0-30.0 L LIVER [id number] 15:49:00 Test Item Value Reference Range Interpretation [...] IU/L See_Comment [Automated message] 30A) The system [employer] generated this result transmitted ref erence range: <=33. Th e reference range was not used to interpr et this result as normal/abnormal . ALT (test code = <7 IU/L 10-49 L 31A) [id number] 15:48:00 Test Item Value Reference Range Interpretation Comments ACETAMINPH (test code = 94M) <0.2 mg/dL 1.2-2.5 L ALCOHOL BLOOD (ETOH)2022-11-04 15:48:00 Test Item Value Reference Range Interpretation Comments ETOH (test code = ETHANOL HALC) The result is to be used only for medical purposes ALCOHOL (test <10 mg/dL See_Comment [Automated me ssage] code = 56A) The system [employer] generated this result transmit isabel reference range : <=10. The refer ence range was not u sed to interpret th is result as normal/abnormal . AMMONIA [id number] 15:48:00 Test Item Value Reference Range Interpretation [...] (test code = MDIFF) NO BASIC METABOLIC [id number] 15:31:00 Test Item Value Reference Range Interpretation Comments GLUCOSE (test code 94 mg/dL 75-100 = 06D) SODIUM (test code 136 mmol/L 136-145 = 01A) POTASSIUM (test 3.9 mmol/L 3.6-5.1 code = 01B) CHLORIDE (test 104 mmol/L 98-107 code = 04A) CO2 (test code = 28 mmol/L 02A) ANION GAP (test 7.9 mmol/L code [...] as normal/abnormal . 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 Old healed fractures of the distal tibia and fibular noted.Soft tissues: Unremarkable.IMPRESSION: No acute findings.Electronically signed by: Nikko Santiago MD 11/04/2022 3:10 PM CDT [id number] BEDSIDE [id number] 11:51:00 Test Item Value Reference Range Interpretation Comments GLUCOSE BEDSIDE TESTING (test code = 79 MG/DL 70-119 N GLUBED) GLUCOSE BEDSIDE [id number] 06:23:00 Test Item Value Reference Range Interpretation Comments GLUCOSE BEDSIDE TESTING (test code = 80 MG/DL 70-119 N GLUBED) BASIC METABOLIC [id number] 05:12:00 Test Item Value Reference Range Interpretation [...] (test code = MG Index/DL The system [employer] HEMINDHauteLook) generated this result transmitted ref erence range: 1 NORMAL . The reference range was not used to int erpret this result as normal/abnormal . INDEX ICTERIC 1 NORMAL <2 MG See_Comment [Automated message] (test code = Index/DL The system [employer] ICTShomoLive) generated this result transmitted ref erence range: 1 NORMAL . The reference range was not used to int erpret this result as normal/abnormal . INDEX LIPEMIA 1 NORMAL <50 See_Comment [Automated me ssage] (test code = MG Index/DL The system [employer] LIPShomoLive) generated this result transmitted ref erence range: [...] <2.0 indicates None DetectedPerform ed At: [facility] [address] [place], [place] [id number] keven Argueta MD Ph:[phone] GLUCOSE BEDSIDE [id number] 19:51:00 Test Item Value Reference Range Interpretation Comments GLUCOSE BEDSIDE TESTING (test code 129 MG/DL 70-119 H = GLUBED) OSMOLALITY [id number] 17:56:00 Test Item Value Reference Range Interpretation Comments OSMOLALITY SERUM (test code = 269 mOsm/kg 275-300 L OSMO) THYROID STIMULATING [id number] 17:56:00 Test Item Value Reference Range Interpretation Comments THYROID STIMULATING HORMONE 4.190 mc IU/ML 0.340-4.820 N (test code = TSH) GLUCOSE BEDSIDE [id number] 15:49:00 Test Item Value Reference Range Interpretation Comments GLUCOSE BEDSIDE TESTING (test code = 86 MG/DL 70-119 N GLUBED) CREATINE KINASE (CK)2022-09-18 14:33:00 Test Item Value Reference Range Interpretation Comments CREATINE KINASE (CK) (test code = 145 Unit/L 26-192 N CK) VALPROIC ACID (DEPAKENE)2022-09-18 14:26:00 Test Item Value Reference Range Interpretation Comments VALPROIC ACID (DEPAKENE) (test 37.5 mcG/ML 50.0-100.0 L code = VALP) [id number] 14:26:00 Test Item Value Reference Range Interpretation Comments AMMONIA (test code = AMM) 29.0 mcMOL/L 11.0-32.0 N GLUCOSE BEDSIDE [id number] 11:51:00 Test Item Value Reference Range Interpretation Comments GLUCOSE BEDSIDE TESTING (test code = 88 MG/DL 70-119 N GLUBED) GLYCOSYLATED HEMOGLOBIN (HA1C)2022-09-18 06:53:00 Test Item Value Reference Range Interpretation Comments GLYCOSYLATED HEMOGLOBIN (HA1C) 5.2 % IS-A1C 4.5-5.6 N (test code = GLYHGB) ESTIMATED AVERAGE [id number] 06:53:00 Test Item Value Reference Range Interpretation [...] (test code = NHDL) or CHD ri LDL: <70 mg/dL nonHD L: <100 mg/dLPatie [...] ave rage [Automated mess age] The system Welltok generated this result transmit isabel reference range [...] interpret this result as normal/abnormal . UR [id number] 21:28:00 Test Item Value Reference Range Interpretation Comments UR SODIUM RANDOM 93 mmol/L 40-200 N (test code = JESUSITA) UR POTASSIUM RANDOM 54.8 mmol/L 25-125 N NO ESTAB LISHED NORMAL (test code = KU) RANGES FOR RANDOM SPECIMENS. UR CHLORIDE RANDOM 164 mmol/L 110-150 H (test code = CLU) UR OSMOLALITY [id number] 21:28:00 Test Item Value Reference Range Interpretation Comments UR OSMOLALITY RANDOM (test code = 475 mOsm/kg 100-1400 N OSMOU) CBC W/O [id number] 20:05:00 Test Item Value Reference Range Interpretation [...] = 9.5 fL 6.8-11.2 N MPV) LACTIC [id number] 19:35:00 Test Item Value Reference Range Interpretation Comments LACTIC ACID (test code = LACT) 1.0 mmol/L 0.4-2.0 N HCG SERUM [id number] 19:31:00 Test Item Value Reference Range Interpretation Comments HCG SERUM QUAL (test code = Negative SCREEN NEG HCGQL) - CT HEAD/BRAIN W/O [id number] 18:59:00 [facility] : 1975 Sex: F Patient Name: BHUMIKA JONES Unit No: [id number] EXAMS: CPT CODE: [id number] CT HEAD/BRAIN W/O [id number] Location: CT head, conducted on 09/17/22 at [...] from the exam acquired earlier today. at 9249 Reported and signed by: Nati Hunt M.D. CC: Valentina Samayoa MD Dictated Date/Time: 09/17/2022 (1858) Technologist: VERO Marie(R)(CT) CTDI: DLP: Trnscrpt: 09/17/2022 (1858) [email or web address] DENIZ Lugo NAME: [address] PHYS: Valentina [place] [address] : 1975 AGE: 47 SEX: F LOC: JOSHUA 20 PHONE #: [phone] EXAM DATE: 09/17/2022 STATUS: ADM INFAX #: [phone] RAD #: D/C DT PAGE 1 Signed Report Patient Name: KRUNAL JONESPCION Unit No: [id number] EXAMS: CPT CODE: [id number] CT HEAD/BRAIN W/O CONT 54956 (Continued) Orig Print D/T: S: 09/17/2022 (190) DENIZ Lugo NAME: ROB[address] PHYS: Valentina [place] [address] : 1975 AGE: 47 SEX: F LOC: MITCHELLED 20 PHONE #: [phone] EXAM DATE: 09/17/2022 STATUS: ADM IN FAX #: [phone] RAD #: D/C DT PAGE 2 Signed ReportURINALYSIS [id number] 16:28:00 Test Item Value Reference Range Interpretation [...] code = SQU) DRUGS OF ABUSE SCREEN [id number] 16:28:00 Test Item Value Reference Interpretation Comments [...] this result as normal/abnormal . TROP-I HIGH [id number] 16:26:00 Test Item Value Reference Range Interpretation [...] URLs may vary b ymethod. BASIC METABOLIC [id number] 16:25:00 Test Item Value Reference Range Interpretation [...] (test code = MG Index/DL The system Welltok HEMINDHauteLook) generated this result transmitted ref erence range: 1 NORMAL . The reference range was not used to int erpret this result as normal/abnormal . INDEX ICTERIC 1 NORMAL <2 MG See_Comment [Automated message] (test code = Index/DL The system Welltok ICTINDHauteLook) generated this result transmitted ref erence range: 1 NORMAL . The reference range was not used to int erpret this result as normal/abnormal . INDEX LIPEMIA 1 NORMAL <50 See_Comment [Automated me ssage] (test code = MG Index/DL The system Welltok LIPShomoLive) generated this result transmitted ref erence range: 1 NORMAL . The reference range was not used to int erpret this result as normal/abnormal . HEPATIC FUNCTION [id number] 16:25:00 Test Item Value Reference Range Interpretation [...] code = 92 Unit/L 26-192 N CK) [id number] 16:25:00 Test Item Value Reference Range Interpretation Comments LIPASE (test code = LIP) 57 Unit/L 114-286 L - CT HEAD/BRAIN W/O [id number] 00:32:00 [facility] : 1975 Sex: F Patient Name: BHUMIKA JONES Unit No: [id number] EXAMS: CPT CODE: [id number] CT HEAD/BRAIN W/O CONT 09989 EXAM: - CT HEAD/BRAIN W/O CONT LOCATION: [...] Trnscrpt: 09/17/2022 (31) [email or web address] DENIZ Lugo NAME: [address] PHYS: IGNACIO.02 - [place]im [place] [address] : 1975 AGE: 47 SEX: F LOC: B.ERS PHONE #: [phone] EXAM DATE: 09/16/2022 STATUS: REG ER FAX #: [phone] RAD #: D/C DT PAGE 1 Signed Report Patient Name: ROBERTNORTH POWNAL Unit No: [id number] EXAMS: CPT CODE: [id number] CT HEAD/BRAIN W/O CONT 95144 (Continued) Orig Print D/T: S: 09/17/2022 (34) DENIZ Zapatae NAME: [address] PHYS: IGNACIO.02 - [place] [address] : 1975 AGE: 47 SEX: F LOC: B.ERS PHONE #: [phone] EXAM DATE: 09/16/2022 STATUS: REG ER FAX #: RAD #: D/C DT PAGE 2 Signed ReportTROP-I HIGH [id number] 00:13:00 Test Item Value Reference Range Interpretation [...] URLs may vary b ymethod. COMPREHENSIVE METABOLIC [id number] 00:11:00 Test Item Value Reference Range Interpretation [...] (test code = MG Index/DL The system Welltok HEMINDEX) generated this result transmitted ref erence [...] this result as normal/abnormal . CBC W/AUTO [id number] 23:59:00 Test Item Value Reference Range Interpretation [...] 0.0-0.05 N NRBC#) - XR CHEST 1 [id number] 23:34:00 [facility] : 1975 Sex: F [place]: E St: PRE -- Patient Name: BHUMIKA JONES Unit No: [id number] EXAMS: CPT CODE: [id number] XR CHEST 1 V 22231 EXAMINATION: - XR CHEST 1 V CLINICAL [...] By: NadiyaJH12 Orig Print D/T: S: 09/16/2022 (6237) DENIZ Lugo NAME: CHIQUI PECK[address] PHYS: IGNACIO.02 - Asim Jack MD, [place] [address] : 1975 AGE: 47 SEX: F LOC: B.ERS PHONE #: [phone] EXAM DATE: 09/16/2022 STATUS: PRE ER FAX #: [phone] RAD NO: DC Dt: PAGE 1 Signed [...] <2.0 indicates None DetectedPerform ed At: [facility] [address] [id number] keven Argueta MD Ph:[phone] VALPROIC ACID (DEPAKENE)2022-09-15 06:12:00 Test Item Value Reference Range Interpretation Comments VALPROIC ACID (DEPAKENE) (test 80.6 mcG/ML 50.0-100.0 N code = VALP) COMPREHENSIVE METABOLIC [id number] 06:00:00 Test Item Value Reference Range Interpretation [...] (test code = MG Index/DL The system imo.im h HEMINDEX) generated this result transmitted ref [...] this result as normal/abnormal . CBC W/AUTO [id number] 05:37:00 Test Item Value Reference Range Interpretation [...] 0.00 K/mm3 0.0-0.05 N NRBC#) GLUCOSE BEDSIDE [id number] 20:03:00 Test Item Value Reference Range Interpretation Comments GLUCOSE BEDSIDE TESTING (test code 117 MG/DL 70-119 N = GLUBED) DRUGS OF ABUSE SCREEN [id number] 11:42:00 Test Item Value Reference Interpretation Comments [...] as normal/abnormal . - CT HEAD/BRAIN W/O [id number] 11:37:00 [facility] : 1975 Sex: F Patient Name: BHUMIKA JONES Unit No: [id number] EXAMS: CPT CODE: [id number] CT HEAD/BRAIN W/O [id number] EXAMINATION: - CT HEAD/BRAIN W/O CONT COMPARISON: [...] paranasal sinus mucosal disease is identified. Vascular structuresare grossly normal IMPRESSION: No acute intracranial abnormality at 1137 Reported and signed by: Gladis Andrew MD CC: Vladimir Forbes MD; Jim Jaimes MD Dictated Date/Time: 09/14/2022 (1137) Technologist: ASUNCION CASTELLANO CTDI: DLP: Trnscrpt: 09/14/2022 (1137) CliffordR.[email or web address] [facility] [place] NAME: BHUMIKA JONES [facility] PHYS: Vladimir Vazquez MD [address] [place] [address] BLVD : 1975 AGE: 47 SEX: F [place], [place] [address] LOC: NEHA Cintron PHONE #: [phone] EXAM DATE: 09/14/2022 STATUS: ADM IN FAX #: [phone] RAD #: D/C DT PAGE 1 Signed Report Patient Name: BHUMIKA JONES Unit No: [id number] EXAMS: CPT CODE: [id number] CT HEAD/BRAIN W/O CONT 83759 (Continued) Orig Print D/T: S: 09/14/2022 (1140) DENIZ Lugo NAME: BHUMIKA JONES MEDICAL IMAG[facility] PHYS: Vladimir Menchaca MD [address] [place] [address] BLVD : 1975 AGE: 47 SEX: F [place], [place] [address] LOC: NEHA10 PHONE #: [phone] EXAM DATE: 09/14/2022 STATUS: ADM IN FAX #: [phone] RAD #: D/C DT PAGE 2 Signed Report PT AND [id number] 06:51:00 Test Item Value Reference Interpretation Comments [...] prevention in p rosthetic heart 3.0-5.4 A [place] mortality reduc tion THROMBOPLASTIN TIME 34.6 SECONDS 24-37.7 N THERAPEU TIC RANGE FOR PARTIAL (test code UNFRACTIO NATED HEPARIN = = PTT) 50.5-83.6 SEC T his test is not recommen ded to monitor low molecularweight heparin or danaparoid. Order LMWH test COLLECTION THROUGH LINES THAT HAVE BEEN PREVIOUSLY FLUS HEDWITH HEPARIN SHOULD BE AVOIDED DUE TO POSSIBLE HEPARINCONTAMIN ATION HCG SERUM [id number] 06:51:00 Test Item Value Reference Range Interpretation [...] (test code = MG Index/DL The system Welltok HEMINDEX) generated this result transmitted ref erence [...] 268 Unit/L 26-192 H CK) CBC W/AUTO [id number] 03:43:00 Test Item Value Reference Range Interpretation [...] = 0.00 K/mm3 0.0-0.05 N NRBC#) URINALYSIS [id number] 03:41:00 Test Item Value Reference Range Interpretation [...] /LPF NONE MUCU) - XR CHEST 2 [id number] 02:06:00 [facility] : 1975 Sex: F FAX: Suleman Carvalho APRNNP [phone] [place]: St: REG Patient Name: BHUMIKA JONES Unit No: [id number] EXAMS: CPT CODE:[id number] XR CHEST 2 V 43193 EXAM: - XR CHEST 2 V HISTORY: [...] (020)Technologist: SULEMAN JACQUES (R) Transcribed Date/Time: 09/14/2022 (205) By: [email or web address] Orig Print D/T: S: 09/14/2022 (020) DENIZ Lugo NAME: ROB[address] PHYS: LUDWIGAD - Deven,Suleman MIRANDA [place], [place] [address] : 1975 AGE: 47 SEX: F LOC: B.ERS PHONE #: [phone] EXAM DATE: 09/14/2022 STATUS: REG ER FAX #: [phone] RAD NO: DC Dt: PAGE 1 Signed Report COMPREHENSIVE METABOLIC [id number] 12:49:00 Test Item Value Reference Range Interpretation [...] (test code = MG Index/DL The system Welltok HEMIjobandtalent) generated this result transmitted ref erence range: [...] int erpret this result as normal/abnormal . [id number] 12:49:00 Test Item Value Reference Range Interpretation Comments MAGNESIUM (test code = MAG) 1.7 MG/DL 1.6-2.6 N CBC W/AUTO [id number] 12:36:00 Test Item Value Reference Range Interpretation [...] /LPF NONE MUCU) DRUGS OF ABUSE SCREEN [id number] 00:33:00 Test Item Value Reference Range Interpretation [...] 300 ng/mL UA RFLX MICR CULT IF [id number] 00:30:00 Test Item Value Reference Range Interpretation [...] culture: Suprapubic PainSpecimen Description: CLEAN CATCHBASIC METABOLIC [id number] 00:18:00 Test Item Value Reference Range Interpretation [...] the recommended for randall for GFRby the [facility] nal Kidney Foundati on for Adults.The GFR will not calculate if th e sex is unknown or if thepatient's ag e is <18 years. CREATININE (test 0.55 mg/dL 0.60-1.30 L code = CREAT) CALCIUM (test code 8.9 mg/dl 8.0-10.5 N = CA) HEPATIC FUNCTION PANEL [id number] 00:18:00 Test Item Value Reference Range Interpretation [...] 50.0-136.0 N code = ALKP) HCG SERUM [id number] 00:18:00 Test Item Value Reference Range Interpretation Comments HCG SERUM QUAL (test code = HCGQL) NEGATIVE NEGATIVE [id number] 00:18:00 Test Item Value Reference Range Interpretation Comments ALCOHOL (test code 0.00 gm/dL 0.00-0.00 N ETHYL ALC OHOL VALUES - = ALC) INTERPRETATION: 0.050 GM/DL - NOT INT OXICATED 0.100 GM/DL - INTOXICATED 0.3 50-0.450 GM/DL - SEVEREL Y INTOXICATED 0.5 50 GM/DL- FATAL INTOXICAT ION Coronavirus 2019 nCoV [id number] 00:09:00 Test Item Value Reference Range Interpretation Comments Coronavirus 2019 Negative NEGATIVE Negative re sults should be nCoV Bedside (test treated a s presumptive and code = ifinconsistent with [id number]) clinical signs and symptoms, or ne cessaryfor patient managem ent, should be tested with an alternativemole cular assay. Negative result s do not preclude ERAV-NnH-7whwkd tion and should not be u sed as the sole basis forp atient management deci sions. Negative result s should beconsidered in the context of a patient's recent exposures,histo ry, presence of clinical sig ns and symptoms consis tentwith COVID-19. CBC W/AUTO [id number] 23:58:00 Test Item Value Reference Range Interpretation [...] 3uL 0.00-0.01 N NRBC#) COMP. METABOLIC PANEL (81913)2022-09-07 02:12:41 Test Item Value Reference Range Interpretation Comments NA (test code = 133 mmol/L 135-145 L 6296092817) K (test code = 4.4 mmol/L 3.5-5.0 9576893337) CL (test code = 102 mmol/L 98-108 9458759944) CO2 TOTAL (test code = 25 mmol/L 23-31 6021106152) AGAP (test code = 6 2-16 6722535493) BUN (test code = 22 mg/dL 7-23 0496094014) GLUCOSE (test code = 97 mg/dL 70-110 8057526852) CREATININE (test code = 0.40 mg/dL 0.50-1.04 L 0290135762) TOTAL BILI (test code = 0.3 mg/dL 0.1-1.6 2399636747) CALCIUM (test code = 8.9 mg/dL 8.6-10.6 0641388578) T PROTEIN (test code = 7.7 g/dL 6.3-8.2 1006182526) ALBUMIN (test code = 4.0 g/dL 3.5-5.0 4372082040) ALK PHOS (test code = 104 U/L 34-122 7489684810) ALTv (test code = 15 U/L 5-35 1742-6) AST(SGOT) (test code = 22 U/L 13-40 6209983385) eGFR (test code = 170.4 mL/min/1.73m2 8711773611) HANNAH (test code = HANNAH) Association of [...] tests). Lab Interpretation Abnormal (test code = 94996-6) [facility] WITH [id number] 02:01:20 Test Item Value Reference Range Interpretation Comments WBC (test code = 6.17 See_Comment [Automated 3388-2) message] The sy stem which generated this result transmitted reference range : 4.30 - 11.10 10*3/?L. The reference range was not used to interpret this result as normal/abnormal . RBC (test code = 3.73 See_Comment L [Automated 519-8) message] The sy stem which generated this [...] RDW-SD (test code = 48.1 fL 39.0-49.9 74919-1) RDW-CV (test code = 14.7 % 12.0-15.5 788-0) PLT (test code = 272 See_Comment [Automated 777-3) message] The sy stem which generated this result transmitted reference range : 166 - 358 10*3/ ?L. The reference r kobi was not used to interpret this result as normal/abnormal . MPV (test code = 9.6 fL 9.5-12.9 65193-5) NRBC/100 WBC (test 0.0 See_Comment [Automat ed code = 0372079344) message] The system which generated this result transmitted reference range : 0.0 - 10.0 /100 WBCs. The refer ence range was not u sed to interpret th is result as normal/abnormal . NRBC x10^3 (test code See_Comment [Auto mated = 7493830786) message] The s ystem which generated this result transmitted reference range : 10*3/?L. The reference range was not used to interpret this result as normal/abnormal . GRAN MAT (NEUT) % 42.2 % (test code = 770-8) IMM GRAN % (test code 0.20 % = 7716581100) LYMPH % (test code = 38.2 % 736-9) MONO % (test code = 12.6 % 5905-5) EOS % (test code = 5.8 % 713-8) BASO % (test code = 1.0 % 706-2) GRAN MAT x10^3(ANC) 2.60 10*3/uL 1.88-7.09 (test code = 6837564996) IMM GRAN x10^3 (test 0.00-0.06 code = 7507676489) LYMPH x10^3 (test code 2.36 10*3/uL 1.32-3.29 = 731-0) MONO x10^3 (test code 0.78 10*3/uL 0.33-0.92 = 742-7) EOS x10^3 (test code = 0.36 10*3/uL 0.03-0.39 711-2) BASO x10^3 (test code 0.06 10*3/uL 0.01-0.07 = 704-7) Lab Interpretation Abnormal (test code = 44005-3) [facility] by RT-PCR (HIGH RISK) 2020-08-19 00:00:00 Test Item Value Reference Range Interpretation Comments SARS-CoV-2 INTERPRETATION (test NEGATIVE code = 25277) SOURCE (test code = 56343) NOT SPECIFIED SARS-CoV-2 (COVID-19) by RT-PCR (HIGH RISK)2020-08-19 00:00:00 Test Item Value Reference Range Interpretation Comments SARS-CoV-2 INTERPRETATION (test NEGATIVE code = 97738) SOURCE (test code = 12580) NOT SPECIFIED PAP TEST, THINPREP, [id number] 00:00:00 Test Item Value Reference Range Interpretation Comments SOURCE: (test code = Cervical/Endocervical 8001) SLIDES: (test code = 1 8011) LMP: (test code = 8021) 06/2017 SPECIMEN ADEQUACY: (test (NOTE) code = 46434) INTERPRETATION: (test NILM/NO EPITH. code = 21578) ABNORMALITY;SEE BELOW ONLINE SERVICES MANAGER: (test Malek code = 8101) KANA Wen(ASCP) IAC LOCATION: (test code = (NOTE) 35108) CPT: (test code = 8140) (NOTE) PAP TEST, THINPREP, [id number] 00:00:00 Test Item Value Reference Range Interpretation Comments SOURCE: (test code = Cervical/Endocervical 8001) SLIDES: (test code = 1 8011) LMP: (test code = 8021) 06/2017 SPECIMEN ADEQUACY: (test (NOTE) code = 22873) INTERPRETATION: (test NILM/NO EPITH. code = 92179) ABNORMALITY;SEE BELOW ONLINE SERVICES MANAGER: (test Malek code = 8101) KANA Wen(ASCP) IAC LOCATION: (test code = (NOTE) 99023) CPT: (test code = 8140) (NOTE) HPV HIGH RISK WITH GENOTYPE, [id number] 00:00:00 Test Item Value Reference Range Interpretation Comments HPV HIGH RISK INTERP (test code = NEGATIVE 38102) HPV 16 (test code = 01704) NEGATIVE HPV 18 (test code = 15692) NEGATIVE HPV, HR, OTHER GENOTYPES (test code NEGATIVE = 00354) HPV HIGH RISK WITH GENOTYPE, [id number] 00:00:00 Test Item Value Reference Range Interpretation Comments HPV HIGH RISK INTERP (test code = NEGATIVE 94423) HPV 16 (test code = 16427) NEGATIVE HPV 18 (test code = 85859) NEGATIVE HPV, HR, OTHER GENOTYPES (test code NEGATIVE = 98817) CT HEAD WO [id number] 22:34:12Impression: 1. ?No acute intracranial process. 2. [...] the patient. Please correlate with history and physicalexamination.[facility] 2 [id number] 22:29:40 No acute osseous abnormality. Preliminary Report [...] reviewed this study and agree with theabove report.[facility] WITH [id number] 21:46:00 Test Item Value Reference Range Interpretation Comments WBC (test code = See_Comment [Automated 0890-2) message] The sy stem which generated this result transmitted reference range : 4.30 - 11.10 10*3/?L. The reference range was not used to interpret this result as normal/abnormal . RBC (test code = See_Comment L [Automated 099-8) message] The sy stem which generated this [...] RDW-SD (test code = 45.1 fL 39-49.9 82080-0) RDW-CV (test code = 14.6 % 12-15.5 788-0) PLT (test code = See_Comment L [Automated 777-3) message] The sy stem which generated this result transmitted reference range : 166 - 358 10*3/ ?L. The reference r kobi was not used to interpret this result as normal/abnormal . MPV (test code = 9.0 fL 9.5-12.9 L 29416-8) NRBC/100 WBC (test See_Comment [Automat ed code = 9005217661) message] The system which generated this result transmitted reference range : 0.0 - 10.0 /100 WBCs. The refer ence range was not u sed to interpret th is result as normal/abnormal . NRBC x10^3 (test code <0.01 See_Comment [Auto mated = 7614448897) message] The s ystem which generated this result transmitted reference range : 10*3/?L. The reference range was not used to interpret this result as normal/abnormal . GRAN MAT (NEUT) % 51.3 % (test code = 770-8) IMM GRAN % (test code 0.40 % = 9265580000) LYMPH % (test code = 24.4 % 736-9) MONO % (test code = 23.1 % 5905-5) EOS % (test code = 0.4 % 713-8) BASO % (test code = 0.4 % 706-2) GRAN MAT x10^3(ANC) 2.48 10*3/uL 1.88-7.09 (test code = 7358610276) IMM GRAN x10^3 (test <0.03 0-0.06 code = 6140844599) LYMPH x10^3 (test code 1.18 10*3/uL 1.32-3.29 L = 731-0) MONO x10^3 (test code 1.12 10*3/uL 0.33-0.92 H = 742-7) EOS x10^3 (test code = <0.03 0.03-0.39 L 711-2) BASO x10^3 (test code <0.03 0.01-0.07 = 704-7) Lab Interpretation Abnormal (test code = 80793-4) [facility] [id number] 03:28:03 No acute osseous abnormality. Preliminary Report [...] this study and agree withthe above report. [facility]pro[facility] Acid [id number] 08:03:22 Test Item Value Reference Range Interpretation Comments Valproic Acid Level (test code 57.6 ug/mL(g) 50.0-100.0 = Valproic Acid Level) Hemoglobin [id number] 09:36:00 Test Item Value Reference Range Interpretation Comments Hemoglobin A1c (test code 5.0 % 4.8-5.9 No n Diabetic = Hemoglobin A1c) 4.8-5.9%Di abetic <7.0% CT Shoulder w/o Contrast [id number] 16:49:13Patient: BHUMIKA JONES Date/Time01/09/2019 16:14 CDTReason for [...] Adam FSigned (Electronic Signature): 01/09/2019 4:49 pmRPR [id number] 21:33:20 Test Item Value Reference Range Interpretation [...] Expiration Dt) XR Shoulder Complete 2+ Views [id number] 15:41:25Patient: BHUMIKA JONES Date/Time01/07/2019 15:25 CDTReason for [...] CSigned (Electronic Signature): 01/07/2019 3:41 pmThyroid Stimulating [id number] 03:07:04 Test Item Value Reference Range Interpretation Comments TSH (test code = TSH) 9.650 mIU/mL 0.270-4.200 H Lipid [id number] 03:07:03 Test Item Value Reference Range Interpretation Comments Cholesterol Total 199 mg/dL 0-200 RISK OF HE ART (test code = DISEASEPublishe d by Cholesterol Total) [employer] [place] Optimal Borderl ine [...] LDL/HDL Ratio=L DL Calc/HDL Chol HCG Qualitative [id number] 02:33:13 Test Item Value Reference Range Interpretation Comments HCG, Serum Qual (test code = HCG, Negative Serum Qual) Lot # (test code = Lot #) [id number] N Expiration Dt (test code = 2020-04-23 N Expiration Dt) Neg Control (test code = Neg Negative Control) Pos Control (test code = Pos Positive Control) Internal QC (test code = Internal Acceptable QC) Drugs of Abuse Urine [id number] 18:58:11 Test Item Value Reference Range Interpretation [...] (test code = Cannabinoid Screen Ur) Alcohol [id number] 18:47:34 Test Item Value Reference Range Interpretation Comments Ethanol Level (test <0.00 g/dL 0.00-0.01 Intoxica isabel 0.080 g/dL code = Ethanol or more Level) Ethanol Inst (test <0 N code = Ethanol Inst) Comprehensive Metabolic [id number] 18:47:33 Test Item Value Reference Range Interpretation [...] National Kid[employer] Foundation, [email or web address] h.gov Comprehensive Metabolic [id number] 18:47:33 Test Item Value Reference Range Interpretation [...] A/G 1.0 ratio N Ratio) Comprehensive Metabolic [id number] 18:47:33 Test Item Value Reference Range Interpretation [...] Foundation, [email or web address] h.gov Complete Blood Count with Uhipxdtjeimf2863-47-30 18:15:23 Test Item Value Reference Range Interpretation [...] code = IPF) 0 % N Automated [id number] 18:15:23 Test Item Value Reference Range Interpretation Comments Neutro Auto (test code = Neutro 42.1 % 36.0-70.0 Auto) Lymph Auto (test code = Lymph Auto) 40.0 % 12.0-44.0 [place]ontas Auto (test code = [place] Auto) 12.2 % 0.0-11.0 H Eos, Auto (test code = Eos, Auto) 4.9 % 0.0-7.0 Basophil Auto (test code = Basophil 0.6 % 0.0-2.0 Auto) Neutro Absolute (test code = Neutro 2.2 x10 1.6-7.4 Absolute) Lymph Absolute (test code = Lymph 2.06 x10 .50-4.60 Absolute) [place] Absolute (test code = [place] .63 x10 .00-1.20 Absolute) Eos Absolute (test code = Eos 0.25 x10 0.00-0.74 Absolute) Baso Absolute (test code = Baso 0.03 x10 0.00-0.21 Absolute) IG [id number] 18:15:23 Test Item Value Reference Range Interpretation Comments IG (test code = IG) 0.2 % 0.0-5.0 IG Abs (test code = IG Abs) 0 x10 N VALPROIC [id number] 00:00:00 Test Item Value Reference Range Interpretation Comments VALPROIC ACID (test code = 3025) 69.8 UG/ML VALPROIC [id number] 00:00:00 Test Item Value Reference Range Interpretation Comments VALPROIC ACID (test code = 3025) 69.8 UG/ML URINE CULTURE, NO [id number] 00:00:00 Test Item Value Reference Range Interpretation Comments URINE CULTURE, NO SPECIMEN NUMBER: SENS (test code = [id number]) URINE CULTURE, NO [id number] 00:00:00 Test Item Value Reference Range Interpretation Comments URINE CULTURE, NO SPECIMEN NUMBER: SENS (test code = [id number]) IRON BINDING CAPACITY AND IRON AND % [id number] 00:00:00 Test Item Value Reference Range Interpretation Comments IRON, SERUM (test code = 2221) 42 UG/DL UNSATURATED IBC (test code = ) 279 UG/DL CALC TOTAL IBC (test code = 2076) 321 UG/DL CALC % IRON SAT (test code = 2078) 13 % IRON BINDING CAPACITY AND IRON AND % [id number] 00:00:00 Test Item Value Reference Range Interpretation Comments IRON, SERUM (test code = 2221) 42 UG/DL UNSATURATED IBC (test code = 74417) 279 UG/DL CALC TOTAL IBC (test code = 2076) 321 UG/DL CALC % IRON SAT (test code = 2078) 13 % [id number] 00:00:00 Test Item Value Reference Range Interpretation Comments FERRITIN (test code = 2074) 15 NG/ML [id number] 00:00:00 Test Item Value Reference Range Interpretation Comments FERRITIN (test code = 2074) 15 NG/ML [id number] 00:00:00 Test Item Value Reference Range Interpretation Comments TRANSFERRIN (test code = 4936) 269 MG/DL [id number] 00:00:00 Test Item Value Reference Range Interpretation Comments TRANSFERRIN (test code = 4936) 269 MG/DL FOLIC [id number] 00:00:00 Test Item Value Reference Range Interpretation Comments FOLIC ACID (test code = 2695) 5.4 UG/L FOLIC [id number] 00:00:00 Test Item Value Reference Range Interpretation Comments FOLIC ACID (test code = 2695) 5.4 UG/L CULTURE, URINE [ADDED]2018-06-12 00:00:00 Test Item Value Reference Range Interpretation Comments CULTURE, URINE (test SPECIMEN NUMBER: code = 80931) [id number] CULTURE, URINE [ADDED]2018-06-12 00:00:00 Test Item Value Reference Range Interpretation Comments CULTURE, URINE (test SPECIMEN NUMBER: code = 66087) [id number] VALPROIC [id number] 00:00:00 Test Item Value Reference Range Interpretation Comments VALPROIC ACID (test code = 3025) 100.9 UG/ML VALPROIC [id number] 00:00:00 Test Item Value Reference Range Interpretation Comments VALPROIC ACID (test code = 3025) 100.9 UG/ML CBC W/AUTO [id number] 00:00:00 Test Item Value Reference Range Interpretation [...] code = 1015) 184 K/UL CBC W/AUTO [id number] 00:00:00 Test Item Value Reference Range Interpretation [...] code = 1015) 184 K/UL CBC W/AUTO [id number] 00:00:00 Test Item Value Reference Range Interpretation [...] code = 1015) 184 K/UL COMPREHENSIVE METABOLIC [id number] 00:00:00 Test Item Value Reference Range Interpretation Comments GLUCOSE (test code = 2217) 86 MG/DL BUN (test code = 2208) 16 MG/DL CREATININE (test code = 2214) 0.45 MG/DL eGFR AMER. (test code 141 ML/MIN/1.73 = 85074) eGFR NON- AMER. (test 122 ML/MIN/1.73 code = 15510) CALC BUN/CREAT (test code = 36 RATIO [...] code = 2219) 17 U/L COMPREHENSIVE METABOLIC [id number] 00:00:00 Test Item Value Reference Range Interpretation Comments GLUCOSE (test code = 2217) 86 MG/DL BUN (test code = 2208) 16 MG/DL CREATININE (test code = 2214) 0.45 MG/DL eGFR AMER. (test code 141 ML/MIN/1.73 = 09969) eGFR NON- AMER. (test 122 ML/MIN/1.73 code = 78686) CALC BUN/CREAT (test code = 36 RATIO [...] BILIRUBIN, TOTAL (test code = <0.2 MG/DL 2207) ALKALINE PHOSPHATASE (test 76 U/L code = 2204) AST (test code = 2218) 24 U/L ALT (test code = 2219) 17 U/L PAP TEST, THINPREP, [id number] 00:00:00 Test Item Value Reference Range Interpretation Comments SOURCE: (test code = Cervical/Endocervical 8001) SLIDES: (test code = 1 8011) LMP: (test code = 03/2017 80) SPECIMEN ADEQUACY: (NOTE) (test code = 98309) INTERPRETATION: (test NO EPITHELIAL code = 59452) ABNORMALITY SEE BELOW ONLINE SERVICES MANAGER: Santi Elizondo, (test code = 8101) CT(ASCP)IAC LOCATION: (test code (NOTE) = 78100) CPT: (test code = (NOTE) 8140) PAP TEST, THINPREP, [id number] 00:00:00 Test Item Value Reference Range Interpretation Comments SOURCE: (test code = Cervical/Endocervical 8001) SLIDES: (test code = 1 8011) LMP: (test code = 03/2017 80) SPECIMEN ADEQUACY: (NOTE) (test code = 86897) INTERPRETATION: (test NO EPITHELIAL code = 76404) ABNORMALITY SEE BELOW ONLINE SERVICES MANAGER: Santi Elizondo, (test code = 8101) CT(ASCP)IAC LOCATION: (test code (NOTE) = 31085) CPT: (test code = (NOTE) 8140) HPV HIGH RISK WITH GENOTYPE, [id number] 00:00:00 Test Item Value Reference Range Interpretation Comments HPV HIGH RISK INTERP (test code = NEGATIVE 36024) HPV 16 (test code = 63328) NEGATIVE HPV 18 (test code = 69349) NEGATIVE HPV, HR, OTHER GENOTYPES (test code NEGATIVE = 79387) HPV HIGH RISK WITH GENOTYPE, [id number] 00:00:00 Test Item Value Reference Range Interpretation Comments HPV HIGH RISK INTERP (test code = NEGATIVE 97570) HPV 16 (test code = 93559) NEGATIVE HPV 18 (test code = 29811) NEGATIVE HPV, HR, OTHER GENOTYPES (test code NEGATIVE = 72134) GC AND CHLAMYDIA AMPLIFIED, [id number] 00:00:00 Test Item Value Reference Range Interpretation Comments GONORRHEA, TMA (test code = 90543) NEGATIVE CHLAMYDIA, TMA (test code = 80507) NEGATIVE HIV AB/AG COMBO RFLX [id number] 00:00:00 Test Item Value Reference Range Interpretation Comments HIV 1/2 4TH GEN, RFLX CONF (test NON-REACTIVE code = 3514) GC AND CHLAMYDIA AMPLIFIED, [id number] 00:00:00 Test Item Value Reference Range Interpretation Comments GONORRHEA, TMA (test code = 08898) NEGATIVE CHLAMYDIA, TMA (test code = 94778) NEGATIVE HIV AB/AG COMBO RFLX [id number] 00:00:00 Test Item Value Reference Range Interpretation Comments HIV 1/2 4TH GEN, RFLX CONF (test NON-REACTIVE code = 3514) COMPREHENSIVE METABOLIC [id number] 00:00:00 Test Item Value Reference Range Interpretation Comments GLUCOSE (test code = 2217) 90 MG/DL BUN (test code = 2208) 21 MG/DL CREATININE (test code = 2214) 0.42 MG/DL eGFR AMER. (test code 145 ML/MIN/1.73 = 56141) eGFR NON- AMER. (test 126 ML/MIN/1.73 code = 93289) CALC BUN/CREAT (test code = 50 RATIO [...] code = 2219) <5 U/L COMPREHENSIVE METABOLIC [id number] 00:00:00 Test Item Value Reference Range Interpretation Comments GLUCOSE (test code = 2217) 90 MG/DL BUN (test code = 2208) 21 MG/DL CREATININE (test code = 2214) 0.42 MG/DL eGFR AMER. (test code 145 ML/MIN/1.73 = 98039) eGFR NON- AMER. (test 126 ML/MIN/1.73 code = 14592) CALC BUN/CREAT (test code = 50 RATIO [...] (test code = 2219) <5 U/L LIPID [id number] 00:00:00 Test Item Value Reference Range Interpretation Comments CHOLESTEROL (test code = 2210) 186 MG/DL TRIGLYCERIDES (test code = 2232) 131 MG/DL HDL CHOLESTEROL (test code = 2220) 67 MG/DL CALC LDL CHOL (test code = 2237) 93 MG/DL RISK RATIO LDL/HDL (test code = 1.39 RATIO 2238) LIPID [id number]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
--- NOTE | 2023-02-26 22:23 | ER ---
Nurse's Notes [facility] Name: Sidra Hodges Age: 48 yrs Sex: Female : 1975 Arrival Date: 02/26/2023 Time: 22:05 Bed 3 Private MD: Diagnosis: Medical screening exam, somatization disorder, acute emotional upset Presentation: 02/26 22:19 Chief complaint: EMS states: COMPLAINED OF TROUBLE WALKING. Coronavirus screen: At this rv time, the client does not indicate any symptoms associated with coronavirus-19. Ebola Screen: No symptoms or risks identified at this time. 22:19 Method Of Arrival: EMS: [facility] rv 22:21 Initial Sepsis Screen: Does the patient meet any 2 criteria? No. Patient's initial rv sepsis screen is negative. Does the patient have a suspected source of infection? No. Patient's initial sepsis screen is negative. Risk Assessment: Do you want to hurt yourself or someone else? Patient reports no desire to harm self or others. Onset of symptoms was February 26, 2023. 22:21 Acuity: CARMITA 5 rv Triage Assessment: 22:21 General: Appears comfortable, Behavior is calm, cooperative. Pain: Denies pain. Neuro: rv Level of Consciousness is awake, alert, Oriented to person, place. Cardiovascular: Capillary refill < 3 seconds Patient's skin is warm and dry. Respiratory: Airway is patent Respiratory effort is even, unlabored. Derm: Skin is healthy with good turgor. Historical: - Allergies: 22:21 CARBAMAZEPINE DERIVATIVES; rv 22:21 Depakote; rv 22:21 Tegretol; rv - PMHx: 22:21 ADD/ADHD; Anxiety; Bipolar disorder; Chronic pain; hemorrhoids; Seizures; rv - PSHx: 22:21 R LEG SX; rv - Immunization history:: Adult Immunizations up to date. - Social history:: Smoking status: Patient denies any tobacco usage or history of. Screenin:22 [facility] ED Fall Risk Assessment (Adult) History of falling in the last 3 months, rv including since admission No falls in past 3 months (0 pts) Confusion or Disorientation No (0 pts) Intoxicated or Sedated No (0 pts) Impaired Gait No (0 pts) Mobility Assist Device Used No (0 pt) Altered Elimination No (0 pt) Score/Fall Risk Level 0 - 2 = Low Risk Oriented to surroundings, Maintained a safe environment, Educated pt \T\ family on fall prevention, incl call for assistance when getting out of bed, Assessed \T\ reinforced patient's understanding of fall precautions, Provided non-skid footwear, Hourly rounding (assess needs \T\ fall precautionary measures) done, Used ambulatory aids as needed (educated on \T\ assisted with), Used gait belt as appropriate. Abuse screen: Denies threats or abuse. Denies injuries from another. Nutritional screening: No deficits noted. Tuberculosis screening: No symptoms or risk factors identified. Assessment: 22:22 Reassessment: PT IS ABLE TO AMBULATE ON HER OWN WITHOUT ASSISTANCE/AID. rv Vital Signs: 22:19 BP 124 / 81; Pulse 71; Resp 17; Temp 98; Pulse Ox 98% ; rv ED Course: 22:07 Patient arrived in ED. pf1 22:09 Sebastian Silva MD is Attending Physician. sp4 22:19 Juan Antonio Madison RN is Primary Nurse. rv 22:21 Triage completed. rv 22:22 Arm band placed on right wrist. rv 22:22 No provider procedures requiring assistance completed. Patient did not have IV access rv during this emergency room visit. 22:23 Patient has correct armband on for positive identification. Provided Education on: rv WALKING. Administered Medications: No medications were administered Medication: 22:22 VIS not applicable for this client. rv Outcome: 22:16 Discharge ordered by . sp4 22:23 Discharged to home ambulatory. rv 22:23 Condition: good 22:23 Discharge instructions given to patient, Instructed on discharge instructions, follow up and referral plans. Demonstrated understanding of instructions, follow-up care. 22:23 Patient left the ED. rv Signatures: Juan Antonio Madison RN RN rv Le Malik RN RN pf1 Sebastian Silva MD MD sp4
[2023-02-26 22:47] VITALS: BP 124/81
[2023-02-26 23:27] VITALS: TEMP 98.3; O2SAT 99
== END 2023-02-26 22:23 | disposition home or self-care (01) ==
LOC: ER 22:05
DX: F45.0 Somatization disorder (principal); G89.29 Other chronic pain; F41.9 Anxiety disorder, unspecified; F90.9 Attention-deficit hyperactivity disorder, unspecified type; R56.9 Unspecified convulsions; Z88.8 Allergy status to other drugs, medicaments and biological substances
CPT/HCPCS: 99283

== ENCOUNTER → 2023-04-08 | Emergency (ER) | payer SELFPAY ==
--- OUTSIDE RECORDS SUMMARY | 2023-04-08 17:55 | XMS REPORT | Continuity of Care Document ---
:1975 Author Organization [facility] t Address [address] [place] [address] Care Team Providers Name Role Phone Bokoshe Swapnil CROFT Primary Care Physician [phone] DR JESS PAIGE Attending Clinician Unavailable Heri [...] Clinician JAVED FRANK Attending Clinician Unavailable Zac TRANSPORTATION ENGINEERING TECHNICIAN, Javed Attending Clinician DEON NUNEZ Attending Clinician Unavailable Deon Nunez DO Attending Clinician Doctor Unassigned, [place] Attending Clinician Unavailable Kp Dorado Attending Clinician [...] Effective Date Expiration Date S veronica 1000 [id number] 2022 00:00:00 MEDICAID ALIEN PENDING 2021 PENDING [...] different from the original. ICD10 Diagnosis Term Patient Access Registrar Utility Asthma Asthma Disease Active Overview: Univer s [address] ity of 00:00: g of this [place] 00 note Medical might be Branch different from the original. 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 ICD10 Diagnosis Term Patient Access Registrar Utility Morbid Morbid Disease Active Univers obesity [...] DA Active U UNKNOWN [facility]- [place] 00:00: Regiona 00 l [facility] No Known DA Active U [facility] 09[facility]13 [place] [facility] carbamaz DA Active U UNKNOWN [facility] epine 09-10 [place] 00:00: Regiona 00 l [facility] No Known DA Active [facility] s NO KNOWN Drug Active Univers ALLERGIE Class ity of S [facility] Social History Social Habit Start Date Stop Date Quantity Comments Source Exposure to 2022-09-14 2022-09-24 Not sure [facility] SARS-CoV-2 00:00:00 12:30:00 [facility] (event) Branch Alcohol intake 2022-09-10 2022-09-10 Current University of 00:00:00 00:00:00 non-drinker of [facility] alcohol (finding) [place] Tobacco use and 2014-07-05 2014-07-05 Smokeless tobacco Un iversity of exposure 00:00:00 00:00:00 non-user [facility] Sex Ass[birth year] Universit y of 00:00:00 00:00:00 [facility] Smoking Status Start Date Stop Date Source Never smoked tobacco [facility] Medications Ordered Filled Start Stop Current [...] Branch 09/09/22 at 2115, STAT hydrOXYzine Yes [id number] 25mg Take 1 Univers 25 mg 3-19 tablet by ity of tablet 00:00: mouth [place] 00 every 6 Medical (six) Branch hours. levETIRAcet Yes [id number] 500mg Take 1 Univers am (KEPPRA) -19 tablet by ity of 500 mg 00:00: mouth 2 [place] tablet 00 (two) Medical times Branch daily. hydrOXYzine 2023-0 Yes [id number] 25mg Take 1 Univers 25 mg 3-19 tablet by ity of tablet 00:00: mouth [place] 00 every 6 Medical (six) Branch hours. levETIRAcet 2023-0 Yes [id number] 500mg Take 1 Univers am (KEPPRA) 3-19 tablet by ity of 500 mg 00:00: mouth 2 [place] tablet 00 (two) Medical times Branch daily. hydrOXYzine 2023-0 Yes [id number] 25mg Take 1 Univers 25 mg 3-19 tablet by ity of tablet 00:00: mouth [place] 00 every 6 Medical (six) Branch hours. levETIRAcet 2023-0 Yes [id number] 500mg Take 1 Univers am (KEPPRA) 3-19 tablet by ity of 500 mg 00:00: mouth 2 [place] tablet 00 (two) Medical times Branch daily. hydrOXYzine 2023-0 Yes [id number] 25mg Take 1 Univers 25 mg 3-19 tablet by ity of tablet 00:00: mouth [place] 00 every 6 Medical (six) Branch hours. levETIRAcet 2023-0 Yes [id number] 500mg Take 1 Univers am (KEPPRA) 3-19 tablet by ity of 500 mg 00:00: mouth 2 [place] tablet 00 (two) Medical times Branch daily. hydrOXYzine 2023-0 Yes [id number] 25mg Take 1 Univers 25 mg 3-19 tablet by ity of tablet 00:00: mouth [place] 00 every 6 Medical (six) Branch hours. levETIRAcet 2023-0 Yes [id number] 500mg Take 1 Univers am (KEPPRA) 3-19 [...] Indication s: acute pain naproxen 2020-06 Yes [id number] 550mg Take 1 U nivers sodium 1-12 [...] Indication s: acute pain naproxen 2020-06 Yes [id number] 550mg Take 1 U nivers sodium 1-12 [...] Indication s: acute pain naproxen 2020-06 Yes [id number] 550mg Take 1 U nivers sodium 1-12 [...] Indication s: acute pain naproxen 2020-06 Yes [id number] 550mg Take 1 U nivers sodium 1-12 [...] Indication s: acute pain naproxen 2020-06 Yes [id number] 550mg Take 1 U nivers sodium 1-12 [...] Indication s: acute pain naproxen 2020-06 Yes [id number] 550mg Take 1 U nivers sodium 1-12 [...] Indication s: acute pain naproxen 2020-06 Yes [id number] 550mg Take 1 U nivers sodium 1-12 [...] Indication s: acute pain naproxen 2020-06 Yes [id number] 550mg Take 1 U nivers sodium 1-12 tablet by ity of (ANAPROX 00:00: mouth 2 [place] DS) 550 mg 00 (two) Medical tablet times Branch daily with meals. ibuprofen 2020-06 No 1mg 600 mg 1-11 tablet 00:00: 00 amoxicillin 2020-0 Yes [id number] 1{tbl} Take 1 Univers -clavulanat 2-20 tablet by ity of e 875-125 00:00: mouth [place] mg per 00 every 12 Medical tablet (twelve) Branch hours. amoxicillin 2020-0 Yes [id number] 1{tbl} Take 1 Univers -clavulanat 2-20 tablet by ity of e 875-125 00:00: mouth [place] mg per 00 every 12 Medical tablet (twelve) Branch hours. amoxicillin 2020-0 Yes [id number] 1{tbl} Take 1 Univers -clavulanat 2-20 tablet by ity of e 875-125 00:00: mouth [place] mg per 00 every 12 Medical tablet (twelve) Branch hours. amoxicillin 2020-0 Yes [id number] 1{tbl} Take 1 Univers -clavulanat 2-20 tablet by ity of e 875-125 00:00: mouth [place] mg per 00 every 12 Medical tablet (twelve) Branch hours. amoxicillin 2020-0 Yes [id number] 1{tbl} Take 1 Univers -clavulanat 2-20 tablet by ity of e 875-125 00:00: mouth [place] mg per 00 every 12 Medical tablet (twelve) Branch hours. amoxicillin 2020-0 Yes [id number] 1{tbl} Take 1 Univers -clavulanat 2-20 tablet by ity of e 875-125 00:00: mouth [place] mg per 00 every 12 Medical tablet (twelve) Branch hours. amoxicillin 2020-0 Yes [id number] 1{tbl} Take 1 Univers -clavulanat 2-20 tablet by ity of e 875-125 00:00: mouth [place] mg per 00 every 12 Medical tablet (twelve) Branch hours. amoxicillin 2020-0 Yes [id number] 1{tbl} Take 1 Univers -clavulanat 2-20 tablet by ity of e 875-125 00:00: mouth [place] mg per 00 every 12 Medical tablet (twelve) Branch hours. amoxicillin 2020-0 Yes [id number] 1{tbl} Take 1 Univers -clavulanat 2-20 tablet by ity of e 875-125 00:00: mouth [place] mg per 00 every 12 Medical tablet (twelve) Branch hours. amoxicillin 2020-0 Yes [id number] 1{tbl} Take 1 Univers -clavulanat 2-20 tablet by ity of e 875-125 00:00: mouth [place] mg per 00 every 12 Medical tablet (twelve) Branch hours. amoxicillin 2020-0 Yes [id number] 1{tbl} Take 1 Univers -clavulanat 2-20 tablet by ity of e 875-125 00:00: mouth [place] mg per 00 every 12 Medical tablet (twelve) Branch hours. amoxicillin 2020-0 Yes [id number] 1{tbl} Take 1 Univers -clavulanat 2-20 tablet by ity of e 875-125 00:00: mouth [place] mg per 00 every 12 Medical tablet (twelve) Branch hours. clindamycin 2019-0 2020- No [id number] 300mg Take 1 Univers 300 mg 2-20 08-23 capsule by ity of capsule 00:00: 05:59 mouth 4 [place] 00 :00 (four) Medical times Branch daily for 10 days. methocarbam 2019-0 2020- No 1000mg 1,000 mg, Univers ol 07-23 Oral, ity of (ROBAXIN) 00:30: 23:39 ONCE, 1 [place] tablet [place] :[place] dose, Wed Medical 1,000 mg 07/22/19 at [facility] h 1830, Routine Keflex 500 No 1mg mg capsule 07-23 00:00: 00 Bromfed DM 2019-0 No 5mg/5 2 mg-30 07-23 mL mg-10 mg/5 00:00: mL oral 00 syrup ketorolac 2019-0 2020- No 30mg 30 mg, Unive rs (TORADOL) 07-23 Intramuscu ity of injection 00:00: 23:00 lar, ONCE, [place] 30 mg 00 :00 1 dose, Medical Wed Branch 07/22/19 at 1800, Routine
sales team member approving Restricted medication : LISA [...] Mon Branch 07/13/19 at 2130, AYESHA
[facility] HENRY OWEN ketorolac 2019-2019- No [id number] 10mg Take 1 Univers 10 mg 07-13 tablet by ity of tablet 00:00: 05:59 mouth [place] 00 :00 every 8 Medical (eight) Branch hours for 5 days. mupirocin 2 0 No 1% % topical 17 ointment 00:00: 00 ibuprofen 2019-0 No 1mg 800 mg -17 tablet 00:00: 00 Keflex 500 2019-0 No 1mg mg capsule 07-10 00:00: 00 traMADol 50 2019-0 Yes [id number] 50mg Take 1 Univers mg tablet 1-11 tablet by ity o f 00:00: mouth [place] 00 every 6 Medical (six) Branch hours as needed for Pain (scale 7-10). cephALEXin 2020-0 Yes [id number] 500mg Take 1 Univers (KEFLEX) 1-11 [id number] capsule by ity of 500 mg 00:00: mouth 4 [place] capsule 00 (four) Medical times Branch daily. traMADol 50 2019-0 Yes [id number] 50mg Take 1 Univers mg tablet 1-11 tablet by ity o f 00:00: mouth [place] 00 every 6 Medical (six) Branch hours as needed for Pain (scale 7-10). cephALEXin 2020-0 Yes [id number] 500mg Take 1 Univers (KEFLEX) 1-11 [id number] capsule by ity of 500 mg 00:00: mouth 4 [place] capsule 00 (four) Medical times Branch daily. traMADol 50 2020-0 Yes [id number] 50mg Take 1 Univers mg tablet 1-11 tablet by ity o f 00:00: mouth [place] 00 every 6 Medical (six) Branch hours as needed for Pain (scale 7-10). cephALEXin 2020-0 Yes [id number] 500mg Take 1 Univers (KEFLEX) 1-11 [id number] capsule by ity of 500 mg 00:00: mouth 4 [place] capsule 00 (four) Medical times Branch daily. traMADol 50 2020-0 Yes [id number] 50mg Take 1 Univers mg tablet 1-11 tablet by ity o f 00:00: mouth [place] 00 every 6 Medical (six) Branch hours as needed for Pain (scale 7-10). cephALEXin 2020-0 Yes [id number] 500mg Take 1 Univers (KEFLEX) 1- [id number] capsule by ity of 500 mg 00:00: mouth 4 [place] capsule 00 (four) Medical times Branch daily. cephALEXin 2020-0 Yes [id number] 500mg Take 1 Univers (KEFLEX) 1- 323845 capsule by ity of 500 mg 00:00: mouth 4 [place] capsule 00 (four) Medical times Branch daily. cephALEXin 2020-0 Yes [id number] 500mg Take 1 Univers (KEFLEX) 1- 460434 capsule by ity of 500 mg 00:00: mouth 4 [place] capsule 00 (four) Medical times Branch daily. cephALEXin 2020-0 Yes [id number] 500mg Take 1 Univers (KEFLEX) 1- 253364 capsule by ity of 500 mg 00:00: mouth 4 [place] capsule 00 (four) Medical times Branch daily. cephALEXin 2020-0 Yes [id number] 500mg Take 1 Univers (KEFLEX) 1- 301401 capsule by ity of 500 mg 00:00: mouth 4 [place] capsule 00 (four) Medical times Branch daily. cephALEXin 2020-0 Yes [id number] 500mg Take 1 Univers (KEFLEX) 1- [id number] capsule by ity of 500 mg 00:00: mouth 4 [place] capsule 00 (four) Medical times Branch daily. cephALEXin 2020-0 Yes [id number] 500mg Take 1 Univers (KEFLEX) 1-11 [id number] capsule by ity of 500 mg 00:00: mouth 4 [place] capsule 00 (four) Medical times Branch daily. cephALEXin 2020-0 Yes [id number] 500mg Take 1 Univers (KEFLEX) 1-11 [id number] capsule by ity of 500 mg 00:00: mouth 4 [place] capsule 00 (four) Medical times Branch daily. cephALEXin 2020-0 Yes [id number] 500mg Take 1 Univers (KEFLEX) 1-11 [id number] capsule by ity of 500 mg 00:00: mouth 4 [place] capsule 00 (four) Medical times Branch daily. traMADol 50 2020-0 Yes [id number] 50mg Take 1 Univers mg tablet 1-11 tablet by ity o f 00:00: mouth [place] 00 every 6 Medical (six) Branch hours as needed for Pain (scale 7-10). cephALEXin 2020-0 Yes [id number] 500mg Take 1 Univers (KEFLEX) 1-11 [id number] capsule by ity of 500 mg 00:00: mouth 4 [place] capsule 00 (four) Medical times Branch daily. traMADol 50 2020-0 Yes [id number] 50mg Take 1 Univers mg tablet 1-11 tablet by ity o f 00:00: mouth [place] 00 every 6 Medical (six) Branch hours as needed for Pain (scale 7-10). cephALEXin 2020-0 Yes [id number] 500mg Take 1 Univers (KEFLEX) 1-11 [id number] capsule by ity of 500 mg 00:00: mouth 4 [place] capsule 00 (four) Medical times Branch daily. traMADol 50 2020-0 Yes [id number] 50mg Take 1 Univers mg tablet 1-11 tablet by ity o f 00:00: mouth [place] 00 every 6 Medical (six) Branch hours as needed for Pain (scale 7-10). cephALEXin 2020-0 Yes [id number] 500mg Take 1 Univers (KEFLEX) 1-11 [id number] capsule by ity of 500 mg 00:00: mouth 4 [place] capsule 00 (four) Medical times Branch daily. traMADol 50 2019-0 2020- No [id number] 50mg Take 1 Univers mg tablet 1-11 11-12 tablet by ity of 00:00: 00:00 mouth [place] 00 :00 every 6 Medical (six) Branch hours as needed for Pain (scale 7-10). bacitracin 2020-0 2020- No [id number] Apply to Univers 500 07-04 affected ity of unit/gram 00:00: 05:59 area(s[place] 2 [place] ointment 00 :00 (two) Medical times Branch daily for 10 days. bacitracin 2020-0 2020- No [id number] Apply to Univers 500 -07-15 affected ity of unit/gram 00:00: 05:59 area(s) 2 [place] ointment 00 :00 (two) Medical times Branch daily for 10 days. traMADol 50 2020-0 Yes [id number] 50mg Take 1 Univers mg tablet 1-07 tablet by ity o f 00:00: mouth [place] 00 every 6 Medical (six) Branch hours as needed for Pain (scale 7-10). traMADol 50 2020-0 Yes [id number] 50mg Take 1 Univers mg tablet 1-07 tablet by ity o f 00:00: mouth [place] 00 every 6 Medical (six) Branch hours as needed for Pain (scale 7-10). traMADol 50 2020-0 Yes [id number] 50mg Take 1 Univers mg tablet 1-07 tablet by ity o f 00:00: mouth [place] 00 every 6 Medical (six) Branch hours as needed for Pain (scale 7-10). traMADol 50 2020-0 Yes [id number] 50mg Take 1 Univers mg tablet 1-07 tablet by ity o f 00:00: mouth [place] 00 every 6 Medical (six) Branch hours as needed for Pain (scale 7-10). traMADol 50 2020-0 Yes [id number] 50mg Take 1 Univers mg tablet 1-07 tablet by ity o f 00:00: mouth [place] 00 every 6 Medical (six) Branch hours as needed for Pain (scale 7-10). traMADol 50 2020-0 Yes [id number] 50mg Take 1 Univers mg tablet 1-07 tablet by ity o f 00:00: mouth [place] 00 every 6 Medical (six) Branch hours as needed for Pain (scale 7-10). traMADol 50 2020-0 Yes [id number] 50mg Take 1 Univers mg tablet 1-07 tablet by ity o f 00:00: mouth [place] 00 every 6 Medical (six) Branch hours as needed for Pain (scale 7-10). traMADol 50 2020-0 2020- No [id number] 50mg Take 1 Univers mg tablet 1-07 [...] ity of 2 mg tablet 00:58: daily. [address] ARIPiprazol Yes 2mg Take 2 mg U nivers e (ABILIFY) 5-01 by mouth ity of 2 mg tablet 00:58: daily. [address] ARIPiprazol Yes 2mg Take 2 mg U nivers e (ABILIFY) 5-01 by mouth ity of 2 mg tablet 00:58: daily. [address] ARIPiprazol Yes 2mg Take 2 mg U nivers e (ABILIFY) 5-01 by mouth ity of 2 mg tablet 00:58: daily. [address] ARIPiprazol Yes 2mg Take 2 mg U nivers e (ABILIFY) 5-01 by mouth ity of 2 mg tablet 00:58: daily. [address] ARIPiprazol Yes 2mg Take 2 mg U nivers e (ABILIFY) 5-01 by mouth ity of 2 mg tablet 00:58: daily. [address] ARIPiprazol Yes 2mg Take 2 mg U nivers e (ABILIFY) 5-01 by mouth ity of 2 mg tablet 00:58: daily. [address] divalproex Yes 500mg Take 500 Un [...] (TRILEPTAL) 00:58: [place] 300 mg 10 Medical [facility] ARIPiprazol Yes 2mg Take 2 mg U nivers e (ABILIFY) 4-30 by mouth ity of 2 mg tablet 19:58: daily. [address] ARIPiprazol Yes 2mg Take 2 mg U nivers e (ABILIFY) 4-30 by mouth ity of 2 mg tablet 19:58: daily. [address] ARIPiprazol Yes 2mg Take 2 mg U nivers e (ABILIFY) 4-30 by mouth ity of 2 mg tablet 19:58: daily. [address] ARIPiprazol Yes 2mg Take 2 mg U nivers e (ABILIFY) 4-30 by mouth ity of 2 mg tablet 19:58: daily. [address] ARIPiprazol Yes 2mg Take 2 mg U nivers e (ABILIFY) 4-30 by mouth ity of 2 mg tablet 19:58: daily. [address] ARIPiprazol Yes 2mg Take 2 mg U nivers e (ABILIFY) 4-30 by mouth ity of 2 mg tablet 19:58: daily. [address] ARIPiprazol 0 Yes 2mg Take 2 mg U nivers e (ABILIFY) 4-30 by mouth ity of 2 mg tablet 19:58: daily. [address] ARIPiprazol 0 Yes 2mg Take 2 mg U nivers e (ABILIFY) 4-30 by mouth ity of 2 mg tablet 19:58: daily. [address] ARIPiprazol Yes 2mg Take 2 mg [...] hydrocortis 2017-0 Yes 25mg Insert 1 Un hcris one 1-30 Suppositor ity of (ANUSOL-HC) 00:00: [...] 300 mg 8-09 tablet 00:00: 00 Depakote 2015-0 No 1mg 500 mg 8-09 tablet,nette 00:00: yed release 00 Abilify 2 2015-0 No 2mg mg tablet 8 00:00: 00 Anusol-HC 2015-0 No 1mg 25 mg 8-09 rectal 00:00: suppository 00 Stool 2015-0 No 1mg Softener 8- 100 mg 00:00: capsule 00 pantoprazol 0 No 1mg e 20 mg 3-04 tablet,nette 00:00: yed release 00 Vital Signs Vital Name Observation Time Observation Value Comments Source Height 2022-11-04 14:04:00 149.86 CM Weight 2022-11-04 14:04:00 73.02 KG Systolic blood 2022-09-24 17:32:00 130 mm[Hg] Univer sity of pressure [place] [facility] Diastolic blood 2022-09-24 17:32:00 85 mm[Hg] Unive rsity of pressure [place] [facility] Heart rate 2022-09-24 17:32:00 64 /min Universi ty of [place] [facility] Body temperature 2022-09-24 17:32:00 36.83 Oma Univ ersity of [place] [facility] Respiratory rate 2022-09-24 17:32:00 18 /min Univ ersity of [place] [facility] Body weight 2022-09-24 17:32:00 74.844 kg Universi ty of [place] [facility] BMI 2022-09-24 17:32:00 33.33 kg/m2 Universi ty of [facility] Oxygen saturation in 2022-09-24 17:32:00 99 /min University of Arterial blood by [facility] Pulse oximetry Branch Systolic blood 2022-09-10 23:55:00 111 mm[Hg] Univer sity of pressure [place] [facility] Diastolic blood 2022-09-10 23:55:00 84 mm[Hg] Unive rsity of pressure [place] [facility] Heart rate 2022-09-10 23:55:00 105 /min Universi ty of [place] [facility] Body temperature 2022-09-10 23:55:00 37.33 Oma Univ ersity of [place] [facility] Respiratory rate 2022-09-10 23:55:00 19 /min Univ ersity of [place] [facility] Systolic blood 2022-09-10 01:44:00 126 mm[Hg] Univer sity of pressure [place] [facility] Diastolic blood 2022-09-10 01:44:00 81 mm[Hg] Unive rsity of pressure [place] [facility] Heart rate 2022-09-10 01:44:00 78 /min Universi ty of [place] [facility] Body temperature 2022-09-10 01:44:00 36.56 [...] 05:37:00 119 mm[Hg] Univer sity of pressure [place] [facility] Diastolic blood 2022-09-07 05:37:00 67 mm[Hg] Unive rsity of pressure [place] [facility] Heart rate 2022-09-07 05:37:00 79 /min Universi ty of [place] [facility] Respiratory rate 2022-09-07 05:37:00 16 /min Univ ersity of [place] [facility] Oxygen saturation in 2022-09-07 05:37:00 98 /min University of Arterial blood by [facility] Pulse oximetry Branch Body temperature 2022-09-06 23:05:00 36.78 Oma Univ ersity of [place] [facility] Body weight 2022-09-06 23:05:00 79.379 kg Universi ty of [place] [facility] BMI 2022-09-06 23:05:00 35.35 kg/m2 Universi ty of [place] [facility] Systolic blood 2021-10-02 20:55:00 111 mm[Hg] Univer sity of pressure [place] [facility] Diastolic blood 2021-10-02 20:55:00 70 mm[Hg] Unive rsity of pressure [place] [facility] Heart rate 2021-10-02 20:55:00 79 /min Universi ty of [place] [facility] Body temperature 2021-10-02 20:55:00 36.61 Oma Univ ersity of [place] [facility] Respiratory rate 2021-10-02 20:55:00 18 /min Univ ersity of [place] [facility] Body height 2021-10-02 20:55:00 149.9 cm Universi ty of [place] [facility] Body weight 2021-10-02 20:55:00 79.379 kg Universi ty of [place] [facility] BMI 2021-10-02 20:55:00 35.35 kg/m2 Universi ty of [place] [facility] Oxygen saturation in 2021-10-02 20:55:00 100 /min University of Arterial blood by [facility] Pulse oximetry Branch Systolic blood 2021-05-05 19:20:00 [...] 99 /min University of Arterial blood by [facility] gracie Pulse oximetry Branch Systolic [...] 2019-12-15 22:12:00 20 /min Univ ersity of [place] [facility] Body weight 2019-12-15 22:12:00 79.379 kg Universi ty of [place] [facility] BMI 2019-12-15 22:12:00 35.35 kg/m2 Universi ty of [place] [facility] Oxygen saturation in 2019-12-15 22:12:00 100 /min University of Arterial blood by [facility] gracie Pulse oximetry Branch Systolic [...] 100 /min University of Arterial blood by [facility] Pulse oximetry Branch Respiratory rate [...] 100 /min University of Arterial blood by [facility] Pulse oximetry Branch Systolic blood [...] /min University of Arterial blood by [place] [employer] gracie Pulse oximetry Branch Systolic blood 2019-07-23 00:20:15 120 mm[Hg] Univer sity of pressure [place] [facility] Diastolic blood 2019-07-23 00:20:15 74 mm[Hg] Unive rsity of pressure [place] [facility] Heart rate 2019-07-23 00:20:15 82 /min Universi ty of [place] [facility] [place] Respiratory rate 2019-07-23 00:20:15 19 /min Univ ersity of [place] [facility] Oxygen saturation in 2019-07-23 00:20:15 100 /min University of Arterial blood by [place] [employer] gracie Pulse oximetry Branch Body temperature 2019-07-22 [...] /min University of Arterial blood by [place] [employer] gracie Pulse oximetry Branch Body temperature 2019-07-22 [...] /min University of Arterial blood by [place] [employer] gracie Pulse oximetry Branch Body weight 2019-07-14 [...] 100 /min University of Arterial blood by [employer] gracie Pulse oximetry Branch Systolic blood 2019-01-21 23:34:00 133 mm[Hg] Univer sity of pressure [facility] Diastolic blood 2019-01-21 23:34:00 78 mm[Hg] Unive rsity of pressure [facility] Heart rate 2019-01-21 23:34:00 66 /min Universi ty [facility] Body temperature 2019-01-21 23:34:00 36.94 [facility] Respiratory rate 2019-01-21 23:34:00 18 /min [facility] Body height 2019-01-21 23:34:00 147.3 cm Universi ty [facility] Body weight 2019-01-21 23:34:[facility] 2019-01-21 23:34:00 31.35 kg/m2 [facility] Oxygen saturation in 2019-01-21 23:34:00 100 /min [facility] Arterial blood by [facility] Pulse oximetry Branch BP Systolic [...] COMP. METABOLIC PANEL 2022-09-07 01:38:[address] [facility] ([id number]) Medical [place] CBC WITH DIFF 2022-09-07 01:38:00 Tayo Boyd [facility] URINALYSIS 2022-09-07 01:38:00 Tayo Boyd [facility] XR ANKLE <3 VW LEFT 2022-09-07 00:56:00 Tayo Boyd [facility] XR FOOT <3 VW LEFT 2022-09-07 00:56:00 Tayo Boyd [facility] CONSENT/REFUSAL FOR 2022-09-06 22:08:37 Doctor Unassigned, No Un [facility] DIAGNOSIS AND TREATMENT Name Medical Branch CT CERVICAL SPINE WO 2021-10-02 21:53:[address] [facility] CONTRAST [facility] Branch CT LUMBAR SPINE WO 2021-10-02 21:53:00 Javed Frank [facility] CONTRAST [facility] Branch CT THORACIC SPINE WO 2021-10-02 21:53:00 Javed Frank [facility] XR FOREARM 2 VW RIGHT 2021-05-05 20:03:34 Deon Nunez [facility] XR WRIST 3+ VW RIGHT 2021-05-05 20:03:34 Deon Nunez [facility] NOTICE OF PRIVACY 2021-05-05 19:12:00 Doctor Unassigned, No Univ [facility] [place] [facility] Name [facility] CONSENT/REFUSAL FOR 2021-05-05 19:11:19 Doctor Unassigned, No Un [facility] [place] DIAGNOSIS AND TREATMENT [facility] CONSENT/REFUSAL FOR 2019-08-13 19:17:22 Doctor Unassigned, No Un [facility] [place] DIAGNOSIS AND TREATMENT [facility] CT HEAD WO CONTRAST 2019-07-22 22:24:37 Ofe Samayoa [facility] XR CERVICAL SPINE 2 VW 2019-07-22 21:59:59 Ofe Samayoa [facility] CBC WITH DIFFERENTIAL 2019-07-22 21:34:00 [facility]R CERVICAL SPINE 2 VW 2019-07-14 02:43:00 Henry Owen [facility] XR ELBOW <3 VW LEFT 2019-07-14 02:43:00 Henry Owen [facility] XR KNEE <3 VW RIGHT 2019-07-14 02:43:00 Henry Owen [facility] XR SHOULDER <2 VW LEFT 2019-07-14 02:43:00 [facility] [id number] Ecg Routine Ecg 2017-09-24 00:00:00 W/least 12 Lds W/i r Plan of Care Planned Activity Planned Date Details Comments Source Goal Plan of Care Note [code = 02850-0] Goal Plan of Care Note [code = 57619-9] Goal Plan of Care Note [code = 82192-8] Goal Plan of Care Note [code = 74681-6] Goal Plan of Care Note [code = 67655-6] Goal Plan of Care Note [code = 52942-1] Goal Plan of Care Note [code = 36642-9] Goal Plan of Care Note [code = 34355-5] Goal Plan of Care Note [code = 42150-7] Goal Plan of Care Note [code = 99072-1] Goal Plan of Care Note [code = 10801-2] Goal Plan of Care Note [code = 81968-6] Goal Plan of Care Note [code = 31560-0] Goal Plan of Care Note [code = 49615-2] Goal Plan of Care Note [code = 68552-9] Goal Plan of Care Note [code = 07989-3] Goal Plan of Care Note [code = 39091-9] Goal Plan of Care Note [code = 51179-5] Goal Plan of Care Note [code = 58640-6] Goal Plan of Care Note [code = 51796-7] Goal Plan of Care Note [code = 69694-4] Goal Plan of Care Note [code = 23808-5] Goal Plan of Care Note [code = 69164-7] Goal Plan of Care Note [code = 24000-4] Goal Plan of Care Note [code = 88929-9] Goal Plan of Care Note [code = 98331-0] Goal Plan of Care Note [code = 50848-9] Goal Plan of Care Note [code = 77351-4] Goal Plan of Care Note [code = 42676-2] Encounters Start End Encounter Admission Attending Care Care Encounter Source Date/Time Date/Time Type Type Clinicians Facility Department ID 2022-11-13 Inpatient TEXANA TEXANA [id number] [place] 13:10:28 [id number] [place] 2022-11-05 Inpatient TEXANA TEXANA [id number] [place] 09:23:13 [id number] [place] 2023-03-02 2023-03-02 Outpatient SFA SFA [id number] Henry 12:27:43 12:27:43 0909 [facility] 2023-01-09 2023-01-09 Outpatient SFA SFA [id number] 023 Henry 17:11:26 17:11:26 0719 [facility] 2022-11-04 2022-11-05 Emergency Linda PAIGE [facility] [id number] [address] [place] [address] 14:04:00 11:09:00 JESS argueta [place] 2022-09-24 2022-09-24 Emergency YUDITH Snow [id number] [facility] 12:33:00 12:51:00 Heri PRATHER 350.1.13.10 magdi Rivera 4.2.7.2.686 [facility] [phone] [facility] [address] 2022-09-22 2022-09-22 Nurse Marisa COX 1.2.840.114 [id number] Univers 00:00:00 00:00:00 Triage Madhavi barclay ROCÍO 350.1.13.10 ity of [facility] 4.2.7.2.686 Dinesh as [phone] [facility] [address] 2022-09-18 2022-09-19 Inpatient EM [facility] [id number] [facility] 10:09:00 14:28:00 25 [facility] 2022-09-16 2022-09-17 Emergency EM Guero, [facility] FABI [id number] [facility] 22:50:00 01:40:00 Asim 33 [facility] 2022-09-14 2022-09-15 Inpatient EM Andrei, [facility] TELE [id number] [facility] 14:52:00 14:00:00 Vladimir 75 [facility] 2022-09-13 2022-09-13 Emergency EM Jose C, [facility] FABI [id number] [facility] 09:34:00 13:00:00 Brad 75 [facility] 2022-09-10 2022-09-11 Emergency EM Donato, [facility] [id number] [facility] 23:39:00 11:28:00 Russel 51 [facility] 2022-09-10 2022-09-10 Emergency Shelbie, Lisa S [place] 1.2.84 0.114 [id number] Univers 18:57:00 20:20:00 Sandrita Key [facility] 350.1.13.10 ity [facility].[place] [id number] [facility] 014 [address] 2022-09-10 2022-09-10 Emergency [facility] E[facility] [id number] Univers 18:57:00 20:20:00 [facility] 2022-09-09 [facility] ERT [id number] Univers 20:45:00 22:46:00 SANDRITA [facility] 2022-09-09 2022-09-09 Emergency Key, TRAU[place] 1.2.233.366 [id number] Univers 20:45:00 22:46:00 [facility] 350.1.13.10 [place] [id number] [facility] [address] [place] 2022-09-06 2022-09-07 Emergency X VASUT, [facility] ERT [id number] Univers 18:09:00 00:51:00 TAYO ity [facility] 2022-09-06 2022-09-07 Emergency Vasut, TRAU[place] 1.2.718.666 [id number] Univers 18:09:00 00:51:00 Tayo [facility] 350.1.13.10 [place] [id number] [facility] [address] [place] 2022-08-21 2022-08-21 Outpatient SFA SFA [id number] 023 Henry 14:11:33 14:11:33 0228 [place] 2022-07-17 2022-07-17 Outpatient SFA SFA [id number] 023 Henry 15:03:48 15:03:48 0124 [place] 2022-07-17 2022-07-17 Outpatient [id number] 4d [id number] 00:00:00 00:00:00 Visit [id number] 2021-10-02 2021-10-02 Emergency X FRANK, [facility] ERT [id number] Univers 15:56:00 19:00:00 JAVED thacker [facility] 2021-10-02 2021-10-02 [facility] 1.2.840.114 [id number] Univers 15:56:00 19:00:00 Javed PRATHER 350.1.13.10 i ty of [place] 4.2.7.2.[place] [id number] [facility] [address] [place] 2021-05-05 2021-05-05 Emergency [facility] ERT [id number] Univers 13:22:00 14:48:00 DEON thacker [facility] 2021-05-05 2021-05-05 Emergency Singer [facility] 1.2.190.543 [id number] Univers 13:22:00 14:48:00 Deon PRATHER 350.1.13.10 i ty [facility] 4.2.7.2.686 [facility] [id number] [address] 2021-05-05 2021-05-05 Orders Doctor KENNY 1.2.840.114 [id number] Univers 00:00:00 00:00:00 Only Unassigned, ROCÍO 350.1.13.10 ity of [place] [facility] 4.2.7.2.686 [facility] [phone] [place] [address] [address] 2019-12-15 2019-12-15 Emergency Kp Gilliland [facility] 1.2.840.114 [id number] Univers 17:11:56 18:04:00 Marissa Lisa 350.1.13.10 i ty of [place] 4.2.7.2.686 [facility] [id number] [address] 2019-12-15 2019-12-15 Emergency Kp Gilliland [facility] 1.2.840.114 [id number] 17:11:56 18:04:00 Marissa Prather 350.1.13.10 [place] 4.2.7.2.686 [place] [id number] [facility] 2019-12-15 2019-12-15 Emergency X Kp GILLILAND [facility] ERT [id number] Univers 17:11:56 17:11:56 ity of [facility] 2019-10-25 2019-10-25 Emergency Paul, [facility] 1.2.387.715 [id number] Univers 18:31:31 19:21:00 Kristin Prather 350.1.13.10 i ty of [place] 4.2.7.2.686 [facility] [id number] [place] [address] Branch 2019-10-25 2019-10-25 [facility] 1.2.215.821 [id number] 18:31:31 19:21:00 Kristin Prather 350.1.13.10 [place] 4.2.7.2.686 [place] [id number] [facility] 2019-10-25 2019-10-25 Emergency X PAUL [facility] ERT [id number] Univers 18:31:31 18:31:31 CYNAUREA itcindy of [facility] 2019-08-13 2019-08-13 Emergency [facility] 1.2.077.711 [id number] Univers 13:30:00 14:36:00 Floridalma Prather 350.1.13.10 i ty [place] [id number] [address] 2019-08-13 2019-08-13 Emergency [facility] ERT [id number] Univers 13:30:00 14:36:00 FLORIDALMA thacker [facility] 2019-08-13 2019-08-13 Emergency [facility] 1.2.901.747 [id number] 13:30:00 14:36:00 Floridalma Prather 350.1.13.10 [place] 4.2.7.2.686 [place] [id number] [facility] 2019-07-22 2019-07-22 Emergency [facility] ERT [id number] Univers 13:42:11 19:02:00 LISA itcindy [facility] 2019-07-22 2019-07-22 Emergency Unknown, Attending [place] 1.2.8 40.114 [id number] Univers 13:42:11 19:02:00 Lisa Morfin S CENTER 350.1.13.10 [place] [id number] [address] 2019-07-22 2019-07-22 Emergency Unknown, Attending TRAUMA 1.2.8 40.114 [id number] 13:42:11 19:02:00 Lisa Morfin S CENTER 350.1.13.10 4.2.7.2.686 [id number] 014 2019-07-13 2019-07-13 Emergency [facility] ERT [id number] Univers 20:17:19 21:48:00 HENRY ity [facility] 2019-07-13 2019-07-13 Emergency Lexie, [place] 1.2.835.898 [id number] Univers 20:17:19 21:48:00 Henry CENTER 350.1.13.10 [place] [id number] [address] 2019-07-10 2019-07-10 Emergency X [facility] ERT [id number] Univers 14:26:03 16:33:00 DEBBIE thacker [facility] 2019-07-10 2019-07-10 Emergency [facility] 1.2.840.114 [id number] Univers 14:26:03 16:33:00 Debbie Babb Lisa 350.1.13.10 ity [facility] 4.2.7.[address] [place] [id number] 2019-07-04 2019-07-04 Emergency [facility] ERT [id number] Univers 19:09:02 22:51:00 LISA thacker [facility] 2019-06-30 2019-06-30 Emergency X [facility] ERT [id number] Univers 10:33:08 13:10:00 DEON thacker [facility] 2019-05-25 2019-05-25 Emergency X [facility] ERT [id number] Univers 11:58:19 15:37:00 DEON cindy [facility] 2019-04-09 2019-04-09 Emergency [facility] ERT [id number] Univers 22:29:37 23:28:00 FLORIDALMA [facility] 2019-01-21 2019-01-21 Emergency [facility] 1.2.757.039 [id number] Univers 18:38:01 19:59:00 Le Nakul Prather 350.1.13.10 ity [facility] 4.[address].7.[address] [place] [id number] 2019-01-21 2019-01-21 Emergency [facility] 1.2.475.344 [id number] 18:38:01 19:59:00 Le Mota Lisa 350.1.13.10 [place] [address] [place] [address] [id number] 084 Results Test Description Test Time Test Comments Results Result Comments Source TRANSFERRIN 2023-03-04 01:13:06 Test Item Value Reference Range Interpretation Comme nts TRANSFERRIN (test code = 4936) 315 MG/DL 200-360 UNLESS OTHERWISE INDICATED, ALL TESTING PERFORM ED AT [facility] [address] [place] [address] LAB[address]ATORY DIRE CTOR: Derek FINN NEIL NUMBER [id number] [place]. [id number] LIPID [id number] 01:12:48 Test Item Value Reference Range Interpretation Comments CHOLESTEROL (test 191 MG/DL <200 code = 2210) TRIGLYCERIDES (test 89 MG/DL <150 code = 2232) HDL CHOLESTEROL (test 74 MG/DL >39 code = 2220) CALC LDL CHOL (test 99 MG/DL <100 NOTE: C ALCULATED LDL code = 2237) IS BASED ON CECE-OBRIEN METHOD WHICHINCLUDES ADJUSTABLE TRIGLYCERIDE:VL DL CHOLESTEROL RAT IO.THIS FACTOR VARIES B Y MEASURED TRIGLY CERIDE AND NON-HDLCHOL ESTEROL CONCENTRATIONS WITH INCREASED CALCU LATED LDL SEENIN HIGH ER TRIGLYCERIDE OR LOWER NON-HDL SPECIME NS. FOR MOREINFORMATION , SEE CLIENT ANNOUNCE MENT AT [email or web address] RISK RATIO LDL/HDL 1.34 RATIO <3.22 (test code = 2238) COMPREHENSIVE METABOLIC [id number] 01:12:48 Test Item Value Reference Range Interpretation Comments GLUCOSE (test code = 92 MG/DL 70-99 2216) BUN (test code = 15 MG/DL 6-20 2207) CREATININE (test 0.65 MG/DL 0.60-1.30 code = 2214) eGFR (2020 CKD-EPI) 108 >60 (test code = 91688) ML/MIN/1.73 CALC BUN/CREAT (test 23 RATIO 6-28 code = 2235) SODIUM (test code = 135 MEQ/L 619-096 8741) POTASSIUM (test code 4.2 MEQ/L 3.5-5.4 = 222) CHLORIDE (test code 99 MEQ/L 95-107 = 2215) CARBON DIOXIDE (test 24 MEQ/L 19-31 code = 2206) CALCIUM (test code = 9.8 MG/DL 8.5-10.5 2208) PROTEIN, TOTAL (test 7.8 G/DL 6.1-8.3 code = 2229) ALBUMIN (test code = 3.9 G/DL 3.5-5.2 2200) CALC GLOBULIN (test 3.9 G/DL 1.9-3.7 H code = 2240) CALC A/G RATIO (test 1.0 RATIO 1.0-2.6 code = 2233) BILIRUBIN, TOTAL <0.2 MG/DL See_Comment [Automated message] (test code = 2206) The syste m which generated this result transmit isabel reference range : <=1.2. The refe rence range was not u sed to interpret th is result as normal/abnormal . ALKALINE PHOSPHATASE 73 U/L 40-125 (test code = 2203) AST (test code = 15 U/L 9-40 2217) ALT (test code = 7 U/L 5-40 2218) IRON BINDING CAPACITY AND IRON AND % [id number] 01:12:48 Test Item Value Reference Range Interpretation Comments IRON, SERUM (test code = 2221) 51 UG/DL 37-145 UNSATURATED IBC (test code = 57499) 356 UG/DL 112-347 H CALC TOTAL IBC (test code = 2076) 407 UG/DL 250-450 CALC % IRON SAT (test code = 2078) 13 % 20-50 L [id number] 00:59:24 Test Item Value Reference Range Interpretation Comments FERRITIN (test code = 2074) 20 NG/ML 13-200 HEMOGLOBIN [id number] 03:08:40 Test Item Value Reference Range Interpretation Comments HEMOGLOBIN A1c (test code = 47946) 5.5 % 4.2-5.6 CBC W/AUTO DIFF WITH [id number] 02:29:36 Test Item Value Reference Range Interpretation Comments WBC (test code = 5.0 K/UL 3.5-11.0 1001) RBC (test code = 3.95 M/UL 3.80-5.40 1002) HEMOGLOBIN (test code 11.3 G/DL 11.5-15.5 L = 1003) HEMATOCRIT (test code 34.1 % 34.0-45.0 = 1004) MCV (test code = 86.3 fL 80.0-99.0 1005) MCH (test code = 28.6 PG 25.0-33.0 1006) MCHC (test code = 33.1 G/DL 31.0-36.0 1007) RDW (test code = 17.6 % 11.5-15.0 H 1038) NEUTROPHILS (test 42.1 % code = 1008) LYMPHOCYTES (test 40.4 % code = 1010) MONOCYTES (test code 11.9 % = 1011) EOSINOPHILS (test 4.8 % code = 1012) BASOPHILS (test code 0.6 % = 1013) IMMATURE GRANULOCYTES 0.2 % (test code = 1036) NUCLEATED RBCS (test 0.0 /100 WBC'S See_Comment [Aut omated code = 1065) message] The sy stem which generated this result transmitted reference range : 0.0. The refere nce range was not u sed to interpret th is result as normal/abnormal . PLATELET COUNT (test 126 K/UL 130-400 L code = 1015) ABSOLUTE NEUTROPHILS 2.08 K/UL 1.50-7.50 (test code = 1066) ABSOLUTE LYMPHOCYTES 2.00 K/UL 1.00-4.00 (test code = 1067) ABSOLUTE MONOCYTES 0.59 K/UL 0.20-1.00 (test code = 1068) ABSOLUTE EOSINOPHILS 0.24 K/UL 0.00-0.50 (test code = 1040) ABSOLUTE BASOPHILS 0.03 K/UL 0.00-0.20 (test code = 1069) ABS IMMATURE 0.01 K/UL 0.00-0.10 GRANULOCYTES (test code = 1020) ABS NUCLEATED RBCS 0.00 K/UL 0.00-0.11 (test code = 87567) DRUGS OF [id number] 05:03:00 Test Item Value Reference Range Interpretation Comments DRUG SCRN (test code = URINE DRUG HDOA) SCREEN This is an unconfirmed screening result and should not be used for non-medical purposes CANNABINOD (test code NEGATIVE NEGATIVE = 88C) AMPHETAMINE (test code NEGATIVE NEGATIVE = 84A) BENZODIAZP (test code NEGATIVE NEGATIVE = 86A) BARBITURAT (test code NEGATIVE NEGATIVE = 85A) OPIATES (test code = NEGATIVE NEGATIVE 92B) COCAINE (test code = NEGATIVE NEGATIVE 87A) PHENCYCLID (test code NEGATIVE NEGATIVE = 66A) METHADONE (test code = NEGATIVE NEGATIVE 64A) DOAH (test code = DOAH.) URINE DRUGSCREEN Cut-off values are as follows: Cannabinoids 50 ng/mL Cocaine 300 ng/mL Amphetamines 1000 ng/mL Phencyclidine 25 ng/mL Benzodiazepines 200 ng.mL Methadone 300 ng/mL Barbiturates 200 ng/mL Opiates 300 ng/mL URINALYSIS WITH [id number] 04:56:00 Test Item Value Reference Range Interpretation [...] (test code = USPERM) /HPF NONE URINE [id number] 04:53:00 Test Item Value Reference Range Interpretation [...] the FDA and the [employer] (CAP) are more stringent than those required for this test. Therefore, the result should be interpreted with caution and close attention to other clinical and epidemiological data [id number] 16:00:00 Test Item Value Reference Range Interpretation Comments SALICYLATE (test code = 94B) <3.0 mg/dL 15.0-30.0 L LIVER [id number] 15:49:00 Test Item Value Reference Range Interpretation [...] IU/L See_Comment [Automated message] 30A) The system [employer] generated this result transmitted ref erence range: <=33. Th e reference range was not used to interpr et this result as normal/abnormal . ALT (test code = <7 IU/L 10-49 L 31A) [id number] 15:48:00 Test Item Value Reference Range Interpretation Comments ACETAMINPH (test code = 94M) <0.2 mg/dL 1.2-2.5 L ALCOHOL BLOOD (ETOH)2022-11-04 15:48:00 Test Item Value Reference Range Interpretation Comments ETOH (test code = ETHANOL HALC) The result is to be used only for medical purposes ALCOHOL (test <10 mg/dL See_Comment [Automated me ssage] code = 56A) The system [employer] generated this result transmit isabel reference range : <=10. The refer ence range was not u sed to interpret th is result as normal/abnormal . AMMONIA [id number] 15:48:00 Test Item Value Reference Range Interpretation [...] (test code = MDIFF) NO BASIC METABOLIC [id number] 15:31:00 Test Item Value Reference Range Interpretation [...] as normal/abnormal . 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 Old healed fractures of the distal tibia and fibular noted.Soft tissues: Unremarkable.IMPRESSION: No acute findings.Electronically signed by: Nikko Santiago MD 11/04/2022 3:10 PM CDT [id number] BEDSIDE [id number] 11:51:00 Test Item Value Reference Range Interpretation Comments GLUCOSE BEDSIDE TESTING (test code = 79 MG/DL 70-119 N GLUBED) GLUCOSE BEDSIDE [id number] 06:23:00 Test Item Value Reference Range Interpretation Comments GLUCOSE BEDSIDE TESTING (test code = 80 MG/DL 70-119 N GLUBED) BASIC METABOLIC [id number] 05:12:00 Test Item Value Reference Range Interpretation [...] (test code = MG Index/DL The system [employer] HEMINDEX) generated this result transmitted ref erence range: 1 NORMAL . The reference range was not used to int erpret this result as normal/abnormal . INDEX ICTERIC 1 NORMAL <2 MG See_Comment [Automated message] (test code = Index/DL The system [employer] ICTINDEX) generated this result transmitted ref erence range: 1 NORMAL . The reference range was not used to int erpret this result as normal/abnormal . INDEX LIPEMIA 1 NORMAL <50 See_Comment [Automated me ssage] (test code = MG Index/DL The system [employer]Fleet [employer]) generated this result transmitted ref erence range: [...] <2.0 indicates None DetectedPerform ed At: [facility] [address] [id number] keven Argueta MD Ph:[phone] GLUCOSE BEDSIDE [id number] 19:51:00 Test Item Value Reference Range Interpretation Comments GLUCOSE BEDSIDE TESTING (test code 129 MG/DL 70-119 H = GLUBED) OSMOLALITY [id number] 17:56:00 Test Item Value Reference Range Interpretation Comments OSMOLALITY SERUM (test code = 269 mOsm/kg 275-300 L OSMO) THYROID STIMULATING [id number] 17:56:00 Test Item Value Reference Range Interpretation Comments THYROID STIMULATING HORMONE 4.190 mc IU/ML 0.340-4.820 N (test code = TSH) GLUCOSE BEDSIDE [id number] 15:49:00 Test Item Value Reference Range Interpretation Comments GLUCOSE BEDSIDE TESTING (test code = 86 MG/DL 70-119 N GLUBED) CREATINE KINASE (CK)2022-09-18 14:33:00 Test Item Value Reference Range Interpretation Comments CREATINE KINASE (CK) (test code = 145 Unit/L 26-192 N CK) VALPROIC ACID (DEPAKENE)2022-09-18 14:26:00 Test Item Value Reference Range Interpretation Comments VALPROIC ACID (DEPAKENE) (test 37.5 mcG/ML 50.0-100.0 L code = VALP) [id number] 14:26:00 Test Item Value Reference Range Interpretation Comments AMMONIA (test code = AMM) 29.0 mcMOL/L 11.0-32.0 N GLUCOSE BEDSIDE [id number] 11:51:00 Test Item Value Reference Range Interpretation Comments GLUCOSE BEDSIDE TESTING (test code = 88 MG/DL 70-119 N GLUBED) GLYCOSYLATED HEMOGLOBIN (HA1C)2022-09-18 06:53:00 Test Item Value Reference Range Interpretation Comments GLYCOSYLATED HEMOGLOBIN (HA1C) 5.2 % IS-A1C 4.5-5.6 N (test code = GLYHGB) ESTIMATED AVERAGE [id number] 06:53:00 Test Item Value Reference Range Interpretation [...] ave rage [Automated mess age] The system [employer] generated this result transmit isabel reference range [...] interpret this result as normal/abnormal . UR [id number] 21:28:00 Test Item Value Reference Range Interpretation Comments UR SODIUM RANDOM 93 mmol/L 40-200 N (test code = JESUSITA) UR POTASSIUM RANDOM 54.8 mmol/L 25-125 N NO ESTAB LISHED NORMAL (test code = KU) RANGES FOR RANDOM SPECIMENS. UR CHLORIDE RANDOM 164 mmol/L 110-150 H (test code = CLU) UR OSMOLALITY [id number] 21:28:00 Test Item Value Reference Range Interpretation Comments UR OSMOLALITY RANDOM (test code = 475 mOsm/kg 100-1400 N OSMOU) CBC W/O [id number] 20:05:00 Test Item Value Reference Range Interpretation [...] = 9.5 fL 6.8-11.2 N MPV) LACTIC [id number] 19:35:00 Test Item Value Reference Range Interpretation Comments LACTIC ACID (test code = LACT) 1.0 mmol/L 0.4-2.0 N HCG SERUM [id number] 19:31:00 Test Item Value Reference Range Interpretation Comments HCG SERUM QUAL (test code = Negative SCREEN NEG HCGQL) - CT HEAD/BRAIN W/O [id number] 18:59:00 [facility] : 1975 Sex: F Patient Name: BHUMIKA JONES Unit No: [id number] EXAMS: CPT CODE: [id number] CT HEAD/BRAIN W/O [id number] Location: H3 CT head, conducted on 09/17/22 [...] Technologist: VERO Marie(Abner)(CT) CTDI: DLP: Trnscrpt: 09/17/2022 (1858) Azael.DAS6 [facility] Parish NAME: KRUNAL JONES[address] PHYS: Valentina Matt[place], [place] [address] : 1975 AGE: 47 SEX:F LOC: JOSHUA 20 PHONE #: [phone] EXAM DATE: 09/17/2022 STATUS: ADM IN FAX #: [phone] RAD #: D/C DT PAGE 1 Signed Report Patient Name: KRUNAL JONESPCION Unit No: [id number] EXAMS: CPT CODE: [id number] CT HEAD/BRAIN W/O CONT 60701 (Continued) Orig Print D/T: S: 09/17/2022 (1902) DENIZ Lugo NAME: [id number] PHYS: Valentina Mattson [place], [place] [address] : 1975 AGE: 47 SEX: F LOC: [facility] 20 PHONE #: [phone] EXAM DATE: 09/17/2022 STATUS: ADM IN FAX #: [phone] RAD #: D/C DT PAGE 2 Signed ReportURINALYSIS [id number] 16:28:00 Test Item Value Reference Range Interpretation [...] code = SQU) DRUGS OF ABUSE SCREEN [id number] 16:28:00 Test Item Value Reference Interpretation Comments [...] this result as normal/abnormal . TROP-I HIGH [id number] 16:26:00 Test Item Value Reference Range Interpretation [...] URLs may vary b ymethod. BASIC METABOLIC [id number] 16:25:00 Test Item Value Reference Range Interpretation [...] (test code = MG Index/DL The system [employer] HEMINDEX) generated this result transmitted ref erence range: 1 NORMAL . The reference range was not used to int erpret this result as normal/abnormal . INDEX ICTERIC 1 NORMAL <2 MG See_Comment [Automated message] (test code = Index/DL The system [employer] ICTINDEX) generated this result transmitted ref erence range: 1 NORMAL . The reference range was not used to int erpret this result as normal/abnormal . INDEX LIPEMIA 1 NORMAL <50 See_Comment [Automated me ssage] (test code = MG Index/DL The system [employer] LIPINDEX) generated this result transmitted ref erence range: 1 NORMAL . The reference range was not used to int erpret this result as normal/abnormal . HEPATIC FUNCTION [id number] 16:25:00 Test Item Value Reference Range Interpretation [...] code = 92 Unit/L 26-192 N CK) [id number] 16:25:00 Test Item Value Reference Range Interpretation Comments LIPASE (test code = LIP) 57 Unit/L 114-286 L - CT HEAD/BRAIN W/O [id number] 00:32:00 [facility] 1975 Sex: F Patient Name: BHUMIKA JONES Unit No: [id number] EXAMS: CPT CODE: [id number] CT HEAD/BRAIN W/O [id number] EXAM: - CT HEAD/BRAIN W/O CONT LOCATION: [...] evidence of acute displaced calvarial fracture. Sinuses: Thevisualized paranasal sinuses and mastoid air cells are clear. Soft Tissues: Unremarkable. Other: None . IMPRESSION: 1. No CT evidence of acute intracranial abnormality. at 0032 Reported and signed by: Jess Iglesias MD CC: Dictated Date/Time: 09/17/2022 (31) Technologist: Terry August CTDI: DLP: Trnscrpt: 09/17/2022 (31) [email or web address] DENIZ Lugo NAME: ROBERT[address] PHYS: - Asim Jack MD, [place] [address] : 1975 AGE: 47 SEX: F LOC: GregorioERS PHONE #: [phone] EXAM DATE: 09/16/2022 STATUS: REG ER FAX #: [phone] RAD #: D/C DT PAGE 1 Signed Report Patient Name: BHUMIKA JONES Unit No: [id number] EXAMS: CPT CODE: [id number] CT HEAD/BRAIN W/O CONT 20487 (Continued) Orig Print D/T: S: 09/17/2022 (0035) DENIZ Lugo NAME: ROBERT[address] PHYS: YASMIN - [place] [address] : 1975 AGE: 47 SEX: F LOC: B.ERS PHONE #: [phone] EXAM DATE: 09/16/2022 STATUS: REG ER FAX #: [phone] RAD #: D/C DT PAGE 2 Signed ReportTROP-I HIGH [id number] 00:13:00 Test Item Value Reference Range Interpretation [...] URLs may vary b ymethod. COMPREHENSIVE METABOLIC [id number] 00:11:00 Test Item Value Reference Range Interpretation [...] (test code = MG Index/DL The system [employer] HEMITeepix) generated this result transmitted ref erence range: [...] this result as normal/abnormal . CBC W/AUTO [id number] 23:59:00 Test Item Value Reference Range Interpretation [...] = 0.00 K/mm3 0.0-0.05 N NRBC#) - [facility] 1 [id number] 23:34:00 [facility] : 1975 Sex: F Ash[place]: E St: PRE -- Patient Name: BHUMIKA JONES Unit No: [id number] EXAMS: CPT CODE: [id number] XR CHEST 1 V 29903 EXAMINATION: - XR CHEST 1 V CLINICAL [...] Flo Jansen MD CC: Dictated Date/Time: 09/16/2022 (233)Technologist: Muna Monet Transcribed Date/Time: 09/16/2022 (2334) By: [email or web address] Orig Print D/T: S: 09/16/2022 (2417) [facility] [place] NAME: ESTHELA KING[address] PHYS: PATCA.02 - Asim Jack MD, [place] [address] :1975 AGE: 47 SEX: F LOC: MARCOS PHONE #: [phone] EXAM DATE: 09/16/2022 STATUS: PRE ER FAX #: [phone] RAD NO: DC Dt: PAGE 1 Signed [...] indicates None DetectedPerform ed At: HD [facility] [place] [address] [place], [place] [id number] keven Argueta MD Ph:[phone] VALPROIC ACID (DEPAKENE)2022-09-15 06:12:00 Test Item Value Reference Range Interpretation Comments VALPROIC ACID (DEPAKENE) (test 80.6 mcG/ML 50.0-100.0 N code = VALP) COMPREHENSIVE METABOLIC [id number] 06:00:00 Test Item Value Reference Range Interpretation [...] (test code = MG Index/DL The system [employer] HEMINDEX) generated this result transmitted ref erence [...] this result as normal/abnormal . CBC W/AUTO [id number] 05:37:00 Test Item Value Reference Range Interpretation [...] 0.00 K/mm3 0.0-0.05 N NRBC#) GLUCOSE BEDSIDE [id number] 20:03:00 Test Item Value Reference Range Interpretation Comments GLUCOSE BEDSIDE TESTING (test code 117 MG/DL 70-119 N = GLUBED) DRUGS OF ABUSE SCREEN [id number] 11:42:00 Test Item Value Reference Interpretation Comments [...] as normal/abnormal . - CT HEAD/BRAIN W/O [id number] 11:37:00 [facility] : 1975 Sex: F Patient Name: BHUMIKA JONES Unit No: [id number] EXAMS: CPT CODE: [id number] CT HEAD/BRAIN W/O CONT 78750 EXAMINATION: - CT HEAD/BRAIN W/O CONT COMPARISON: [...] MD; Jim Jaimes MD Dictated Date/Time: 09/14/2022 (0033) Technologist: ASUNCION CASTELLANO CTDI: DLP: Trnscrpt: 09/14/2022 (7893) [email or web address] DENIZ Lugo NAME: BHUMIKA JONES [facility] PHYS: Vladimir Vazquez MD [address] [place] [address] : 1975 AGE: 47 SEX: F [place] [address] LOC: NEHA 10 PHONE #: [phone] EXAM DATE: 09/14/2022 STATUS: ADM IN FAX #: [phone] RAD #: D/C DT PAGE 1 Signed Report Patient Name: BHUMIKA JONES Unit No: [id number]: CPT CODE: [id number] CT HEAD/BRAIN W/O CONT 54561 (Continued) Orig Print D/T: S: 09/14/2022 (1140) DENIZ Lugo NAME: BHUMIKA JONES [facility] PHYS: Vladimir Menchaca MD [address] [place] [address] : 1975 AGE: 47 SEX: Etta [place] [address] LOC: NEHA 10 PHONE #: [phone] EXAM DATE: 09/14/2022 STATUS: ADM IN FAX #: [phone] RAD #: D/C DT PAGE 2 Signed [...] prevention in p rosthetic heart 3.0-5.4 A MT mortality reduc tion THROMBOPLASTIN TIME 34.6 SECONDS 24-37.7 N THERAPEU TIC RANGE FOR PARTIAL (test code UNFRACTIO NATED HEPARIN = = PTT) 50.5-83.6 SEC T his test is not recommen ded to monitor low molecularweight heparin or danaparoid. Order LMWH test COLLECTION THROUGH LINES THAT HAVE BEEN PREVIOUSLY FLUS HEDWITH HEPARIN SHOULD BE AVOIDED DUE TO POSSIBLE HEPARINCONTAMIN ATION HCG SERUM [id number] 06:51:00 Test Item Value Reference Range Interpretation [...] (test code = MG Index/DL The system [employer] HEMINDEX) generated this result transmitted ref erence [...] 268 Unit/L 26-192 H CK) CBC W/AUTO [id number] 03:43:00 Test Item Value Reference Range Interpretation [...] = 0.00 K/mm3 0.0-0.05 N NRBC#) URINALYSIS [id number] 03:41:00 Test Item Value Reference Range Interpretation [...] /LPF NONE MUCU) - XR CHEST 2 [id number] 02:06:00 [facility] : 1975 Sex: F FAX: TylerSuleman gipson RUTH [phone] Ash[place]: St: REG Patient Name: BHUMIKA JONES Unit No: [id number] EXAMS: CPT CODE:[id number] XR CHEST 2 V 80075 EXAM: - XR CHEST 2 V HISTORY: [...] (020)Technologist: SULEMAN JACQUES (R) Transcribed Date/Time: 09/14/2022 (020)By: [email or web address] Orig Print D/T: S: 09/14/2022 (0209) DENIZ Lugo NAME: BHUMIKA JONES [address] [place] [address] PHYS: TYLERMYRA Santiago TylerbrandanSuleman MIRANDA [place], [place] [address] : 1975 AGE: 47 SEX: F LOC: B.ERS PHONE #: [phone] EXAM DATE: 09/14/2022 STATUS: REG ER FAX #: [phone] RAD NO: DC Dt: PAGE 1 Signed Report COMPREHENSIVE METABOLIC [id number] 12:49:00 Test Item Value Reference Range Interpretation [...] (test code = MG Index/DL The system [employer] HEMINDEX) generated this result transmitted ref erence [...] int erpret this result as normal/abnormal . [id number] 12:49:00 Test Item Value Reference Range Interpretation Comments MAGNESIUM (test code = MAG) 1.7 MG/DL 1.6-2.6 N CBC W/AUTO [id number] 12:36:00 Test Item Value Reference Range Interpretation [...] /LPF NONE MUCU) DRUGS OF ABUSE SCREEN [id number] 00:33:00 Test Item Value Reference Range Interpretation [...] 300 ng/mL UA RFLX MICR CULT IF [id number] 00:30:00 Test Item Value Reference Range Interpretation [...] culture: Suprapubic PainSpecimen Description: CLEAN CATCHBASIC METABOLIC [id number] 00:18:00 Test Item Value Reference Range Interpretation [...] the recommended for randall for GFRby the [facility] on for Adults.The GFR will not calculate if th e sex is unknown or if thepatient's ag e is <18 years. CREATININE (test 0.55 mg/dL 0.60-1.30 L code = CREAT) CALCIUM (test code 8.9 mg/dl 8.0-10.5 N = CA) HEPATIC FUNCTION PANEL [id number] 00:18:00 Test Item Value Reference Range Interpretation [...] 50.0-136.0 N code = ALKP) HCG SERUM [id number] 00:18:00 Test Item Value Reference Range Interpretation Comments HCG SERUM QUAL (test code = HCGQL) NEGATIVE NEGATIVE [id number] 00:18:00 Test Item Value Reference Range Interpretation Comments ALCOHOL (test code 0.00 gm/dL 0.00-0.00 N ETHYL ALC OHOL VALUES - = ALC) INTERPRETATION: 0.050 GM/DL - NOT INT OXICATED 0.100 GM/DL - INTOXICATED 0.3 50-0.450 GM/DL - SEVEREL Y INTOXICATED 0.5 50 GM/DL- FATAL INTOXICAT ION Coronavirus 2019 nCoV [id number] 00:09:00 Test Item Value Reference Range Interpretation Comments Coronavirus 2019 Negative NEGATIVE Negative re sults should be nCoV Bedside (test treated a s presumptive and code = ifinconsistent with [id number]) clinical signs and symptoms, or ne cessaryfor patient managem ent, should be tested with an alternativemole cular assay. Negative result s do not preclude DGDC-NlZ-9qjwei tion and should not be u sed as the sole basis forp atient management deci sions. Negative result s should beconsidered in the context of a patient's recent exposures,histo ry, presence of clinical sig ns and symptoms consis tentwith COVID-19. CBC W/AUTO [id number] 23:58:00 Test Item Value Reference Range Interpretation [...] 3uL 0.00-0.01 N NRBC#) COMP. METABOLIC PANEL (67336)2022-09-07 02:12:41 Test Item Value Reference Range Interpretation Comments NA (test code = 133 mmol/L 135-145 L 6441586356) K (test code = 4.4 mmol/L 3.5-5.0 6305081539) CL (test code = 102 mmol/L 98-108 6307779060) CO2 TOTAL (test code = 25 mmol/L 23-31 0811131470) AGAP (test code = 6 2-16 5245416579) BUN (test code = 22 mg/dL 7-23 6781339830) GLUCOSE (test code = 97 mg/dL 70-110 5183547634) CREATININE (test code = 0.40 mg/dL 0.50-1.04 L 8146887163) TOTAL BILI (test code = 0.3 mg/dL 0.1-1.7 2434079359) CALCIUM (test code = 8.9 mg/dL 8.6-10.6 6714008127) T PROTEIN (test code = 7.7 g/dL 6.3-8.2 9038604280) ALBUMIN (test code = 4.0 g/dL 3.5-5.0 8469726230) ALK PHOS (test code = 104 U/L 34-122 2530087407) ALTv (test code = 15 U/L 5-35 1742-6) AST(SGOT) (test code = 22 U/L 13-40 9829517122) eGFR (test code = 170.4 mL/min/1.73m2 4312115785) HANNAH (test code = HANNAH) Association of [...] tests). Lab Interpretation Abnormal (test code = 91896-2) [facility] WITH [id number] 02:01:20 Test Item Value Reference Range Interpretation Comments WBC (test code = 6.17 See_Comment [Automated 2678-2) message] The sy stem which generated this result transmitted reference range : 4.30 - 11.10 10*3/?L. The reference range was not used to interpret this result as normal/abnormal . RBC (test code = 3.73 See_Comment L [Automated 367-8) message] The sy stem which generated this [...] RDW-SD (test code = 48.1 fL 39.0-49.9 36314-2) RDW-CV (test code = 14.7 % 12.0-15.5 788-0) PLT (test code = 272 See_Comment [Automated 167-3) message] The sy stem which generated this result transmitted reference range : 166 - 358 10*3/ ?L. The reference r kobi was not used to interpret this result as normal/abnormal . MPV (test code = 9.6 fL 9.5-12.9 66813-3) NRBC/100 WBC (test 0.0 See_Comment [Automat ed code = 6740335552) message] The system which generated this result transmitted reference range : 0.0 - 10.0 /100 WBCs. The refer ence range was not u sed to interpret th is result as normal/abnormal . NRBC x10^3 (test code See_Comment [Auto mated = 6072744265) message] The s ystem which generated this result transmitted reference range : 10*3/?L. The reference range was not used to interpret this result as normal/abnormal . GRAN MAT (NEUT) % 42.2 % (test code = 770-8) IMM GRAN % (test code 0.20 % = 4556951600) LYMPH % (test code = 38.2 % 736-9) MONO % (test code = 12.6 % 5905-5) EOS % (test code = 5.8 % 713-8) BASO % (test code = 1.0 % 706-2) GRAN MAT x10^3(ANC) 2.60 10*3/uL 1.88-7.09 (test code = 5918522596) IMM GRAN x10^3 (test 0.00-0.06 code = 4647359794) LYMPH x10^3 (test code 2.36 10*3/uL 1.32-3.29 = 731-0) MONO x10^3 (test code 0.78 10*3/uL 0.33-0.92 = 742-7) EOS x10^3 (test code = 0.36 10*3/uL 0.03-0.39 711-2) BASO x10^3 (test code 0.06 10*3/uL 0.01-0.07 = 704-7) Lab Interpretation Abnormal (test code = 57816-7) [facility] (HIGH RISK) 2020-08-19 00:00:00 Test Item Value Reference Range Interpretation Comments SARS-CoV-2 INTERPRETATION (test NEGATIVE code = 60891) SOURCE (test code = 89389) NOT SPECIFIED SARS-CoV-2 (COVID-19) by RT-PCR (HIGH RISK)2020-08-19 00:00:00 Test Item Value Reference Range Interpretation Comments SARS-CoV-2 INTERPRETATION (test NEGATIVE code = 95668) SOURCE (test code = 67317) NOT SPECIFIED PAP TEST, THINPREP, [id number] 00:00:00 Test Item Value Reference Range Interpretation Comments SOURCE: (test code = Cervical/Endocervical 8001) SLIDES: (test code = 1 8011) LMP: (test code = 8021) 06/2017 SPECIMEN ADEQUACY: (test (NOTE) code = 23736) INTERPRETATION: (test NILM/NO EPITH. code = 82000) ABNORMALITY;SEE BELOW PUBLIC STENOGRAPHER: (test Malek code = 8101) Callahan, CT(ASCP) IAC LOCATION: (test code = (NOTE) 60132) CPT: (test code = 8140) (NOTE) PAP TEST, THINPREP, [id number] 00:00:00 Test Item Value Reference Range Interpretation Comments SOURCE: (test code = Cervical/Endocervical 8001) SLIDES: (test code = 1 8011) LMP: (test code = 8021) 06/2017 SPECIMEN ADEQUACY: (test (NOTE) code = 27470) INTERPRETATION: (test NILM/NO EPITH. code = 31727) ABNORMALITY;SEE BELOW PUBLIC STENOGRAPHER: (test Malek code = 8101) Callahan, CT(ASCP) IAC LOCATION: (test code = (NOTE) 65975) CPT: (test code = 8140) (NOTE) HPV HIGH RISK WITH GENOTYPE, [id number] 00:00:00 Test Item Value Reference Range Interpretation Comments HPV HIGH RISK INTERP (test code = NEGATIVE 33031) HPV 16 (test code = 79126) NEGATIVE HPV 18 (test code = 07439) NEGATIVE HPV, HR, OTHER GENOTYPES (test code NEGATIVE = 70944) HPV HIGH RISK WITH GENOTYPE, [id number] 00:00:00 Test Item Value Reference Range Interpretation Comments HPV HIGH RISK INTERP (test code = NEGATIVE 16802) HPV 16 (test code = 51514) NEGATIVE HPV 18 (test code = 39630) NEGATIVE HPV, HR, OTHER GENOTYPES (test code NEGATIVE = 12802) CT HEAD WO [id number] 22:34:12Impression: 1. ?No acute intracranial process. 2. [...] the patient. Please correlate with history and physicalexamination.[facility] 2 [id number] 22:29:40 No acute osseous abnormality. Preliminary Report Dictated by Resident: Carl Womack I, Kenny [...] reviewed this study and agree with theabove report.[facility] WITH [id number] 21:46:00 Test Item Value Reference Range Interpretation Comments WBC (test code = See_Comment [Automated 5790-2) message] The sy stem which generated this [...] RDW-SD (test code = 45.1 fL 39-49.9 51184-1) RDW-CV (test code = 14.6 % 12-15.5 788-0) PLT (test code = See_Comment L [Automated 777-3) message] The sy stem which generated this result transmitted reference range : 166 - 358 10*3/ ?L. The reference r kobi was not used to interpret this result as normal/abnormal . MPV (test code = 9.0 fL 9.5-12.9 L 50193-5) NRBC/100 WBC (test See_Comment [Automat ed code = 5307286220) message] The system which generated this result transmitted reference range : 0.0 - 10.0 /100 WBCs. The refer ence range was not u sed to interpret th is result as normal/abnormal . NRBC x10^3 (test code <0.01 See_Comment [Auto mated = 3144079681) message] The s ystem which generated this result transmitted reference range : 10*3/?L. The reference range was not used to interpret this result as normal/abnormal . GRAN MAT (NEUT) % 51.3 % (test code = 770-8) IMM GRAN % (test code 0.40 % = 9902777652) LYMPH % (test code = 24.4 % 736-9) MONO % (test code = 23.1 % 5905-5) EOS % (test code = 0.4 % 713-8) BASO % (test code = 0.4 % 706-2) GRAN MAT x10^3(ANC) 2.48 10*3/uL 1.88-7.09 (test code = 3346113939) IMM GRAN x10^3 (test <0.03 0-0.06 code = 0360800925) LYMPH x10^3 (test code 1.18 10*3/uL 1.32-3.29 L = 731-0) MONO x10^3 (test code 1.12 10*3/uL 0.33-0.92 H = 742-7) EOS x10^3 (test code = <0.03 0.03-0.39 L 711-2) BASO x10^3 (test code <0.03 0.01-0.07 = 704-7) Lab Interpretation Abnormal (test code = 30930-2) [facility] [id number] 03:28:03 No acute osseous abnormality. Preliminary Report [...] this study and agree withthe above report. [facility] HospitalValproic Acid [id number] 08:03:22 Test Item Value Reference Range Interpretation Comments Valproic Acid Level (test code 57.6 ug/mL(g) 50.0-100.0 = Valproic Acid Level) Hemoglobin [id number] 09:36:00 Test Item Value Reference Range Interpretation Comments Hemoglobin A1c (test code 5.0 % 4.8-5.9 No n Diabetic = Hemoglobin A1c) 4.8-5.9%Di abetic <7.0% CT Shoulder w/o Contrast [id number] 16:49:13Patient: BHUMIKA JONES Date/Time01/09/2019 16:14 CDTReason for [...] Adam FSigned (Electronic Signature): 01/09/2019 4:49 pmRPR [id number] 21:33:20 Test Item Value Reference Range Interpretation [...] Expiration Dt) XR Shoulder Complete 2+ Views [id number] 15:41:25Patient: BHUMIKA JONES Date/Time01/07/2019 15:25 CDTReason for [...] CSigned (Electronic Signature): 01/07/2019 3:41 pmThyroid Stimulating [id number] 03:07:04 Test Item Value Reference Range Interpretation Comments TSH (test code = TSH) 9.650 mIU/mL 0.270-4.200 H Lipid [id number] 03:07:03 Test Item Value Reference Range Interpretation Comments Cholesterol Total 199 mg/dL 0-200 RISK OF HE ART (test code = DISEASEPublishe d by Cholesterol Total) [employer] [place] Optimal Borderl ine [...] LDL/HDL Ratio=L DL Calc/HDL Chol HCG Qualitative [id number] 02:33:13 Test Item Value Reference Range Interpretation Comments HCG, Serum Qual (test code = HCG, Negative Serum Qual) Lot # (test code = Lot #) [id number] N Expiration Dt (test code = 2020-04-23 N Expiration Dt) Neg Control (test code = Neg Negative Control) Pos Control (test code = Pos Positive Control) Internal QC (test code = Internal Acceptable QC) Drugs of Abuse Urine [id number] 18:58:11 Test Item Value Reference Range Interpretation [...] (test code = Cannabinoid Screen Ur) Alcohol [id number] 18:47:34 Test Item Value Reference Range Interpretation Comments Ethanol Level (test <0.00 g/dL 0.00-0.01 Intoxica isabel 0.080 g/dL code = Ethanol or more Level) Ethanol Inst (test <0 N code = Ethanol Inst) Comprehensive Metabolic [id number] 18:47:33 Test Item Value Reference Range Interpretation [...] A/G 1.0 ratio N Ratio) Comprehensive Metabolic [id number] 18:47:33 Test Item Value Reference Range Interpretation [...] National Kidney Foundation, [email or web address] h.gov Comprehensive Metabolic [id number] 18:47:33 Test Item Value Reference Range Interpretation [...] RangeeGF R < 60 may mean kid ebtzaida diseaseeGFR < 1 5 may mean kidney [...] Foundation, [email or web address] h.gov Complete Blood Count with Vizpntdpnjxd2949-98-73 18:15:23 Test Item Value Reference Range Interpretation [...] code = IPF) 0 % N Automated [id number] 18:15:23 Test Item Value Reference Range Interpretation Comments Neutro Auto (test code = Neutro 42.1 % 36.0-70.0 Auto) Lymph Auto (test code = Lymph Auto) 40.0 % 12.0-44.0 Niobrara Auto (test code = Niobrara Auto) 12.2 % 0.0-11.0 H Eos, Auto (test code = Eos, Auto) 4.9 % 0.0-7.0 Basophil Auto (test code = Basophil 0.6 % 0.0-2.0 Auto) Neutro Absolute (test code = Neutro 2.2 x10 1.6-7.4 Absolute) Lymph Absolute (test code = Lymph 2.06 x10 .50-4.60 Absolute) Niobrara Absolute (test code = Niobrara .63 x10 .00-1.20 Absolute) Eos Absolute (test code = Eos 0.25 x10 0.00-0.74 Absolute) Baso Absolute (test code = Baso 0.03 x10 0.00-0.21 Absolute) IG [id number] 18:15:23 Test Item Value Reference Range Interpretation Comments IG (test code = IG) 0.2 % 0.0-5.0 IG Abs (test code = IG Abs) 0 x10 N VALPROIC [id number] 00:00:00 Test Item Value Reference Range Interpretation Comments VALPROIC ACID (test code = 3025) 69.8 UG/ML VALPROIC [id number] 00:00:00 Test Item Value Reference Range Interpretation Comments VALPROIC ACID (test code = 3025) 69.8 UG/ML URINE CULTURE, NO [id number] 00:00:00 Test Item Value Reference Range Interpretation Comments URINE CULTURE, NO SPECIMEN NUMBER: SENS (test code = 48617404 89649) URINE CULTURE, NO [id number] 00:00:00 Test Item Value Reference Range Interpretation Comments URINE CULTURE, NO SPECIMEN NUMBER: SENS (test code = 57879989 82006) IRON BINDING CAPACITY AND IRON AND % [id number] 00:00:00 Test Item Value Reference Range Interpretation Comments IRON, SERUM (test code = 2) 42 UG/DL UNSATURATED IBC (test code = 39611) 279 UG/DL CALC TOTAL IBC (test code = 7) 321 UG/DL CALC % IRON SAT (test code = 9) 13 % IRON BINDING CAPACITY AND IRON AND % [id number] 00:00:00 Test Item Value Reference Range Interpretation Comments IRON, SERUM (test code = 2) 42 UG/DL UNSATURATED IBC (test code = 89564) 279 UG/DL CALC TOTAL IBC (test code = 7) 321 UG/DL CALC % IRON SAT (test code = 9) 13 % [id number] 00:00:00 Test Item Value Reference Range Interpretation Comments FERRITIN (test code = 5) 15 NG/ML [id number] 00:00:00 Test Item Value Reference Range Interpretation Comments FERRITIN (test code = 2075) 15 NG/ML [id number] 00:00:00 Test Item Value Reference Range Interpretation Comments TRANSFERRIN (test code = 4936) 269 MG/DL [id number] 00:00:00 Test Item Value Reference Range Interpretation Comments TRANSFERRIN (test code = 4936) 269 MG/DL FOLIC [id number] 00:00:00 Test Item Value Reference Range Interpretation Comments FOLIC ACID (test code = 2695) 5.4 UG/L FOLIC [id number] 00:00:00 Test Item Value Reference Range Interpretation Comments FOLIC ACID (test code = 2695) 5.4 UG/L CULTURE, URINE [ADDED]2018-06-12 00:00:00 Test Item Value Reference Range Interpretation Comments CULTURE, URINE (test SPECIMEN NUMBER: code = 81111) [id number] CULTURE, URINE [ADDED]2018-06-12 00:00:00 Test Item Value Reference Range Interpretation Comments CULTURE, URINE (test SPECIMEN NUMBER: code = 24813) [id number] VALPROIC [id number] 00:00:00 Test Item Value Reference Range Interpretation Comments VALPROIC ACID (test code = 3025) 100.9 UG/ML VALPROIC [id number] 00:00:00 Test Item Value Reference Range Interpretation Comments VALPROIC ACID (test code = 3025) 100.9 UG/ML CBC W/AUTO [id number] 00:00:00 Test Item Value Reference Range Interpretation [...] code = 1015) 184 K/UL CBC W/AUTO [id number] 00:00:00 Test Item Value Reference Range Interpretation [...] code = 1015) 184 K/UL CBC W/AUTO [id number] 00:00:00 Test Item Value Reference Range Interpretation [...] code = 1015) 184 K/UL COMPREHENSIVE METABOLIC [id number] 00:00:00 Test Item Value Reference Range Interpretation Comments GLUCOSE (test code = 2217) 86 MG/DL BUN (test code = 2208) 16 MG/DL CREATININE (test code = 2214) 0.45 MG/DL eGFR AMER. (test code 141 ML/MIN/1.73 = 44829) eGFR NON- AMER. (test 122 ML/MIN/1.73 code = 99766) CALC BUN/CREAT (test code = 36 RATIO [...] code = 2219) 17 U/L COMPREHENSIVE METABOLIC [id number] 00:00:00 Test Item Value Reference Range Interpretation Comments GLUCOSE (test code = 2217) 86 MG/DL BUN (test code = 2208) 16 MG/DL CREATININE (test code = 2214) 0.45 MG/DL eGFR AMER. (test code 141 ML/MIN/1.73 = 14240) eGFR NON- AMER. (test 122 ML/MIN/1.73 code = 13114) CALC BUN/CREAT (test code = 36 RATIO [...] = 2219) 17 U/L PAP TEST, THINPREP, [id number] 00:00:00 Test Item Value Reference Range Interpretation Comments SOURCE: (test code = Cervical/Endocervical 8001) SLIDES: (test code = 1 8011) LMP: (test code = 03/2017 8021) SPECIMEN ADEQUACY: (NOTE) (test code = 24004) INTERPRETATION: (test NO EPITHELIAL code = 03350) ABNORMALITY SEE BELOW PUBLIC STENOGRAPHER: Santi Elizondo, (test code = 8101) CT(ASCP)IAC LOCATION: (test code (NOTE) = 41896) CPT: (test code = (NOTE) 8140) PAP TEST, THINPREP, [id number] 00:00:00 Test Item Value Reference Range Interpretation Comments SOURCE: (test code = Cervical/Endocervical 8001) SLIDES: (test code = 1 8011) LMP: (test code = 03/2017 8021) SPECIMEN ADEQUACY: (NOTE) (test code = 57483) INTERPRETATION: (test NO EPITHELIAL code = 87890) ABNORMALITY SEE BELOW PUBLIC STENOGRAPHER: Santi Elizondo, (test code = 8101) CT(ASCP)IAC LOCATION: (test code (NOTE) = 89984) CPT: (test code = (NOTE) 8140) HPV HIGH RISK WITH GENOTYPE, [id number] 00:00:00 Test Item Value Reference Range Interpretation Comments HPV HIGH RISK INTERP (test code = NEGATIVE [address]) HPV 16 (test code = 37880) NEGATIVE HPV 18 (test code = 51543) NEGATIVE HPV, HR, OTHER GENOTYPES (test code NEGATIVE = 85587) HPV HIGH RISK WITH GENOTYPE, [id number] 00:00:00 Test Item Value Reference Range Interpretation Comments HPV HIGH RISK INTERP (test code = NEGATIVE 64062) HPV 16 (test code = 43950) NEGATIVE HPV 18 (test code = 34479) NEGATIVE HPV, HR, OTHER GENOTYPES (test code NEGATIVE = 10425) GC AND CHLAMYDIA AMPLIFIED, [id number] 00:00:00 Test Item Value Reference Range Interpretation Comments GONORRHEA, TMA (test code = 79562) NEGATIVE CHLAMYDIA, TMA (test code = 10887) NEGATIVE HIV AB/AG COMBO RFLX [id number] 00:00:00 Test Item Value Reference Range Interpretation Comments HIV 1/2 4TH GEN, RFLX CONF (test NON-REACTIVE code = 3514) GC AND CHLAMYDIA AMPLIFIED, [id number] 00:00:00 Test Item Value Reference Range Interpretation Comments GONORRHEA, TMA (test code = 07317) NEGATIVE CHLAMYDIA, TMA (test code = 95509) NEGATIVE HIV AB/AG COMBO RFLX [id number] 00:00:00 Test Item Value Reference Range Interpretation Comments HIV 1/2 4TH GEN, RFLX CONF (test NON-REACTIVE code = 3514) COMPREHENSIVE METABOLIC [id number] 00:00:00 Test Item Value Reference Range Interpretation Comments GLUCOSE (test code = 2217) 90 MG/DL BUN (test code = 2208) 21 MG/DL CREATININE (test code = 2214) 0.42 MG/DL eGFR AMER. (test code 145 ML/MIN/1.73 = 74375) eGFR NON- AMER. (test 126 ML/MIN/1.73 code = 24020) CALC BUN/CREAT (test code = 50 RATIO [...] code = 2219) <5 U/L COMPREHENSIVE METABOLIC [id number] 00:00:00 Test Item Value Reference Range Interpretation Comments GLUCOSE (test code = 2217) 90 MG/DL BUN (test code = 2208) 21 MG/DL CREATININE (test code = 2214) 0.42 MG/DL eGFR AMER. (test code 145 ML/MIN/1.73 = 00040) eGFR NON- AMER. (test 126 ML/MIN/1.73 code = 81865) CALC BUN/CREAT (test code = 50 RATIO [...] (test code = 2219) <5 U/L LIPID [id number] 00:00:00 Test Item Value Reference Range Interpretation Comments CHOLESTEROL (test code = 2210) 186 MG/DL TRIGLYCERIDES (test code = 2232) 131 MG/DL HDL CHOLESTEROL (test code = 2220) 67 MG/DL CALC LDL CHOL (test code = 2237) 93 MG/DL RISK RATIO LDL/HDL (test code = 1.39 RATIO 2238) LIPID [id number] 00:00:00 Test Item Value Reference Range Interpretation Comments CHOLESTEROL (test code = 2210) 186 MG/DL TRIGLYCERIDES (test code = 2232) 131 MG/DL HDL CHOLESTEROL (test code = 2220) 67 MG/DL CALC LDL CHOL (test code = 2237) 93 MG/DL RISK RATIO LDL/HDL (test code = 1.39 RATIO 2238) CBC W/AUTO [id number] 00:00:00 Test Item Value Reference Range Interpretation [...] code = 1015) 152 K/UL CBC W/AUTO [id number] 00:00:00 Test Item Value Reference Range Interpretation [...] code = 1015) 152 K/UL CBC W/AUTO [id number] 00:00:00 Test Item Value Reference Range Interpretation [...] (test code = 1015) 152 K/UL HEMOGLOBIN [id number] 00:00:00 Test Item Value Reference Range Interpretation Comments HEMOGLOBIN A1c (test code = 34414) 5.2 % HEMOGLOBIN [id number] 00:00:00 Test Item Value Reference Range Interpretation Comments HEMOGLOBIN A1c (test code = 83701) 5.2 % HEMOGLOBIN [id number] 00:00:00 Test Item Value Reference Range Interpretation Comments HEMOGLOBIN A1c (test code = 52605) 5.2 % [id number] 00:00:00 Test Item Value Reference Range Interpretation Comments TSH (test code = 2821) 2.020 UIU/ML [id number] 00:00:00 Test Item Value Reference Range Interpretation Comments TSH (test code = 2821) 2.020 UIU/ML [id number] 00:00:00 Test Item Value Reference Range Interpretation Comments TSH (test code = 2821) 2.020 UIU/ML"
== END ==
LOC: ER 17:50
DX: Z02.9 Encounter for administrative examinations, unspecified (principal)

== ENCOUNTER 2023-05-10 00:27 | Emergency (ER) | payer SELFPAY ==
--- OUTSIDE RECORDS SUMMARY | 2023-05-10 00:38 | XMS REPORT | Continuity of Care Document ---
:1975 Author Organization [facility] t Address 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 ICD10 Diagnosis Term Diversity Manager Utility Asthma Asthma Disease Active Overview: Univer s 208 [address] ity of 00:00: g of this [place] 00 note Medical might be Branch different from the original. ICD10 Diagnosis Term Diversity Manager Utility Mental Mental Disease Active Univers disorder disorder 2-08 ity of 00:00: [place] 00 Medical Branch Encounter Encounter Disease Active Overview: Univers for for 2 Formattin ity of routine routine 00:00: g of this [place] gynecologi gynecologi 00 note Me dical gracie gracie might be Branch examinatio examinatio different n n from the original. ICD10 Diagnosis Term Diversity Manager Utility Morbid Morbid Disease Active Univers obesity [...] DA Active U UNKNOWN [facility]- [place] 00:00: Region[facility] 00 l [facility] No Known DA Active U [facility] Allergie 09-13 [place] [facility] carbamaz DA Active U UNKNOWN [facility] epine 09-10 [place] 00:00: Regiona 00 l [facility] NO KNOWN Drug Active Univers ALLERGIE Class ity of S [facility] No Known DA Active [facility] Allergie [place] s Social History Social Habit Start Date Stop Date Quantity Comments Source Exposure to 2022-09-14 2022-09-24 Not sure [facility]-CoV-2 00:00:00 12:30:00 [facility] (event) [place] Alcohol intake 2022-09-10 2022-09-10 Current University of 00:00:00 00:00:00 non-drinker of [facility] alcohol (finding) [place] Tobacco use and 2014-07-05 2014-07-05 Smokeless tobacco Un iversity of exposure 00:00:00 00:00:00 non-user [facility] Sex Assigned At [birth year] Universit y of 00:00:00 00:00:00 [facility] Smoking Status Start Date Stop Date Source Never smoked tobacco [facility] Medications Ordered Filled Start Stop Current Ordering [...] Branch 09/09/22 at 2115, STAT hydrOXYzine Yes [id number] 25mg Take 1 Univers 25 mg 3-19 tablet by ity of tablet 00:00: mouth [place] 00 every 6 Medical (six) Branch hours. levETIRAcet Yes [id number] 500mg Take 1 Univers am (KEPPRA) -19 tablet by ity of 500 mg 00:00: mouth 2 [place] tablet 00 (two) Medical times Branch daily. hydrOXYzine 2023-0 Yes [id number] 25mg Take 1 Univers 25 mg 3-19 tablet by ity of tablet 00:00: mouth [place] 00 every 6 Medical (six) Branch hours. levETIRAcet 2023-0 Yes [id number] 500mg Take 1 Univers am (KEPPRA) 3-19 tablet by ity of 500 mg 00:00: mouth 2 [place] tablet 00 (two) Medical times Branch daily. hydrOXYzine 2023-0 Yes [id number] 25mg Take 1 Univers 25 mg 3-19 tablet by ity of tablet 00:00: mouth [place] 00 every 6 Medical (six) Branch hours. levETIRAcet 2023-0 Yes [id number] 500mg Take 1 Univers am (KEPPRA) 3-19 tablet by ity of 500 mg 00:00: mouth 2 [place] tablet 00 (two) Medical times Branch daily. hydrOXYzine 2023-0 Yes [id number] 25mg Take 1 Univers 25 mg 3-19 tablet by ity of tablet 00:00: mouth [place] 00 every 6 Medical (six) Branch hours. levETIRAcet 2023-0 Yes [id number] 500mg Take 1 Univers am (KEPPRA) 3-19 tablet by ity of 500 mg 00:00: mouth 2 [place] tablet 00 (two) Medical times Branch daily. hydrOXYzine 2023-0 Yes [id number] 25mg Take 1 Univers 25 mg 3-19 tablet by ity of tablet 00:00: mouth [place] 00 every 6 Medical (six) Branch hours. levETIRAcet 2023-0 Yes [id number] 500mg Take 1 Univers am (KEPPRA) 3-19 [...] Indication s: acute pain naproxen 2020-06 Yes [id number] 550mg Take 1 U nivers sodium 1-12 [...] Indication s: acute pain naproxen 2020-06 Yes [id number] 550mg Take 1 U nivers sodium 1-12 [...] Indication s: acute pain naproxen 2020-06 Yes [id number] 550mg Take 1 U nivers sodium 1-12 [...] Indication s: acute pain naproxen 2020-06 Yes [id number] 550mg Take 1 U nivers sodium 1-12 [...] Indication s: acute pain naproxen 2020-06 Yes [id number] 550mg Take 1 U nivers sodium 1-12 [...] Indication s: acute pain naproxen 2020-06 Yes [id number] 550mg Take 1 U nivers sodium 1-12 [...] Indication s: acute pain naproxen 2020-06 Yes [id number] 550mg Take 1 U nivers sodium 1-12 [...] Indication s: acute pain naproxen 2020-06 Yes [id number] 550mg Take 1 U nivers sodium 1-12 tablet by ity of (ANAPROX 00:00: mouth 2 [place] DS) 550 mg 00 (two) Medical tablet times Branch daily with meals. ibuprofen 2020-06 No 1mg 600 mg 1-11 tablet 00:00: 00 amoxicillin 2020-0 Yes [id number] 1{tbl} Take 1 Univers -clavulanat 2-20 tablet by ity of e 875-125 00:00: mouth [place] mg per 00 every 12 Medical tablet (twelve) Branch hours. amoxicillin 2020-0 Yes [id number] 1{tbl} Take 1 Univers -clavulanat 2-20 tablet by ity of e 875-125 00:00: mouth [place] mg per 00 every 12 Medical tablet (twelve) Branch hours. amoxicillin 2020-0 Yes [id number] 1{tbl} Take 1 Univers -clavulanat 2-20 tablet by ity of e 875-125 00:00: mouth [place] mg per 00 every 12 Medical tablet (twelve) Branch hours. amoxicillin 2020-0 Yes [id number] 1{tbl} Take 1 Univers -clavulanat 2-20 tablet by ity of e 875-125 00:00: mouth [place] mg per 00 every 12 Medical tablet (twelve) Branch hours. amoxicillin 2020-0 Yes [id number] 1{tbl} Take 1 Univers -clavulanat 2-20 tablet by ity of e 875-125 00:00: mouth [place] mg per 00 every 12 Medical tablet (twelve) Branch hours. amoxicillin 2020-0 Yes [id number] 1{tbl} Take 1 Univers -clavulanat 2-20 tablet by ity of e 875-125 00:00: mouth [place] mg per 00 every 12 Medical tablet (twelve) Branch hours. amoxicillin 2020-0 Yes [id number] 1{tbl} Take 1 Univers -clavulanat 2-20 tablet by ity of e 875-125 00:00: mouth [place] mg per 00 every 12 Medical tablet (twelve) Branch hours. amoxicillin 2020-0 Yes [id number] 1{tbl} Take 1 Univers -clavulanat 2-20 tablet by ity of e 875-125 00:00: mouth [place] mg per 00 every 12 Medical tablet (twelve) Branch hours. amoxicillin 2020-0 Yes [id number] 1{tbl} Take 1 Univers -clavulanat 2-20 tablet by ity of e 875-125 00:00: mouth [place] mg per 00 every 12 Medical tablet (twelve) Branch hours. amoxicillin 2020-0 Yes [id number] 1{tbl} Take 1 Univers -clavulanat 2-20 tablet by ity of e 875-125 00:00: mouth [place] mg per 00 every 12 Medical tablet (twelve) Branch hours. amoxicillin 2020-0 Yes [id number] 1{tbl} Take 1 Univers -clavulanat 2-20 tablet by ity of e 875-125 00:00: mouth [place] mg per 00 every 12 Medical tablet (twelve) Branch hours. amoxicillin 2020-0 Yes [id number] 1{tbl} Take 1 Univers -clavulanat 2-20 tablet by ity of e 875-125 00:00: mouth [place] mg per 00 every 12 Medical tablet (twelve) Branch hours. clindamycin 2019-0 2020- No [id number] 300mg Take 1 Univers 300 mg 2-20 08-23 capsule by ity of capsule 00:00: 05:59 mouth 4 [place] 00 :00 (four) Medical times Branch daily for 10 days. methocarbam 2019-0 2020- No 1000mg 1,000 mg, Univers ol 07-23 Oral, ity of (ROBAXIN) 00:30: 23:39 ONCE, 1 [place] tablet [place] :[place] dose, Wed Medical 1,000 mg 07/22/19 at [facility] h 1830, Routine Keflex 500 No 1mg [...] Mon Branch 07/13/19 at 2130, AYESHA
[facility] Restricted [facility] : HENRY OWEN ketorolac 2019-2019- No [id number] 10mg Take 1 Univers 10 mg 07-13 tablet by ity of tablet 00:00: 05:59 mouth [place] 00 :00 every 8 Medical (eight) Branch hours for 5 days. mupirocin 2 0 No 1% % topical 17 ointment 00:00: 00 ibuprofen 2019-0 No 1mg 800 mg -17 tablet 00:00: 00 Keflex 500 2019-0 No 1mg mg capsule 07-10 00:00: 00 traMADol 50 2019-0 Yes [id number] 50mg Take 1 Univers mg tablet 1-11 tablet by ity o f 00:00: mouth [place] 00 every 6 Medical (six) Branch hours as needed for Pain (scale 7-10). cephALEXin 2020-0 Yes [id number] 500mg Take 1 Univers (KEFLEX) 1-11 [id number] capsule by ity of 500 mg 00:00: mouth 4 [place] capsule 00 (four) Medical times Branch daily. traMADol 50 2019-0 Yes [id number] 50mg Take 1 Univers mg tablet 1-11 tablet by ity o f 00:00: mouth [place] 00 every 6 Medical (six) Branch hours as needed for Pain (scale 7-10). cephALEXin 2020-0 Yes [id number] 500mg Take 1 Univers (KEFLEX) 1-11 [id number] capsule by ity of 500 mg 00:00: mouth 4 [place] capsule 00 (four) Medical times Branch daily. traMADol 50 2020-0 Yes [id number] 50mg Take 1 Univers mg tablet 1-11 tablet by ity o f 00:00: mouth [place] 00 every 6 Medical (six) Branch hours as needed for Pain (scale 7-10). cephALEXin 2020-0 Yes [id number] 500mg Take 1 Univers (KEFLEX) 1-11 [id number] capsule by ity of 500 mg 00:00: mouth 4 [place] capsule 00 (four) Medical times Branch daily. traMADol 50 2020-0 Yes [id number] 50mg Take 1 Univers mg tablet 1-11 tablet by ity o f 00:00: mouth [place] 00 every 6 Medical (six) Branch hours as needed for Pain (scale 7-10). cephALEXin 2020-0 Yes [id number] 500mg Take 1 Univers (KEFLEX) 1- 338373 capsule by ity of 500 mg 00:00: mouth 4 [place] capsule 00 (four) Medical times Branch daily. cephALEXin 2020-0 Yes [id number] 500mg Take 1 Univers (KEFLEX) 1- 266116 capsule by ity of 500 mg 00:00: mouth 4 [place] capsule 00 (four) Medical times Branch daily. cephALEXin 2020-0 Yes [id number] 500mg Take 1 Univers (KEFLEX) 1- 831930 capsule by ity of 500 mg 00:00: mouth 4 [place] capsule 00 (four) Medical times Branch daily. cephALEXin 2020-0 Yes [id number] 500mg Take 1 Univers (KEFLEX) 1- 100354 capsule by ity of 500 mg 00:00: mouth 4 [place] capsule 00 (four) Medical times Branch daily. cephALEXin 2020-0 Yes [id number] 500mg Take 1 Univers (KEFLEX) 1- [id number] capsule by ity of 500 mg 00:00: mouth 4 [place] capsule 00 (four) Medical times Branch daily. cephALEXin 2020-0 Yes [id number] 500mg Take 1 Univers (KEFLEX) 1- 140774 capsule by ity of 500 mg 00:00: mouth 4 [place] capsule 00 (four) Medical times Branch daily. cephALEXin 2020-0 Yes [id number] 500mg Take 1 Univers (KEFLEX) 1-11 [id number] capsule by ity of 500 mg 00:00: mouth 4 [place] capsule 00 (four) Medical times Branch daily. cephALEXin 2020-0 Yes [id number] 500mg Take 1 Univers (KEFLEX) 1-11 [id number] capsule by ity of 500 mg 00:00: mouth 4 [place] capsule 00 (four) Medical times Branch daily. cephALEXin 2020-0 Yes [id number] 500mg Take 1 Univers (KEFLEX) 1-11 [id number] capsule by ity of 500 mg 00:00: mouth 4 [place] capsule 00 (four) Medical times Branch daily. traMADol 50 2020-0 Yes [id number] 50mg Take 1 Univers mg tablet 1-11 tablet by ity o f 00:00: mouth [place] 00 every 6 Medical (six) Branch hours as needed for Pain (scale 7-10). cephALEXin 2020-0 Yes [id number] 500mg Take 1 Univers (KEFLEX) 1-11 [id number] capsule by ity of 500 mg 00:00: mouth 4 [place] capsule 00 (four) Medical times Branch daily. traMADol 50 2020-0 Yes [id number] 50mg Take 1 Univers mg tablet 1-11 tablet by ity o f 00:00: mouth [place] 00 every 6 Medical (six) Branch hours as needed for Pain (scale 7-10). cephALEXin 2020-0 Yes [id number] 500mg Take 1 Univers (KEFLEX) 1-11 [id number] capsule by ity of 500 mg 00:00: mouth 4 [place] capsule 00 (four) Medical times Branch daily. traMADol 50 2020-0 Yes [id number] 50mg Take 1 Univers mg tablet 1-11 tablet by ity o f 00:00: mouth [place] 00 every 6 Medical (six) Branch hours as needed for Pain (scale 7-10). cephALEXin 2020-0 Yes [id number] 500mg Take 1 Univers (KEFLEX) 1-11 [id number] capsule by ity of 500 mg 00:00: mouth 4 [place] capsule 00 (four) Medical times Branch daily. traMADol 50 2019-0 2020- No [id number] 50mg Take 1 Univers mg tablet 1-11 11-12 tablet by ity of 00:00: 00:00 mouth [place] 00 :00 every 6 Medical (six) Branch hours as needed for Pain (scale 7-10). bacitracin 2020-0 2020- No [id number] Apply to Univers 500 07-04 affected ity of unit/gram 00:00: 05:59 area(s) 2 [place] ointment 00 :00 (two) Medical times Branch daily for 10 days. bacitracin 2020-0 2020- No [id number] Apply to Univers 500 -07-15 affected ity of unit/gram 00:00: 05:59 area(s) 2 [place] ointment 00 :00 (two) Medical times Branch daily for 10 days. traMADol 50 2020-0 Yes [id number] 50mg Take 1 Univers mg tablet 1-07 tablet by ity o f 00:00: mouth [place] 00 every 6 Medical (six) Branch hours as needed for Pain (scale 7-10). traMADol 50 2020-0 Yes [id number] 50mg Take 1 Univers mg tablet 1-07 tablet by ity o f 00:00: mouth [place] 00 every 6 Medical (six) Branch hours as needed for Pain (scale 7-10). traMADol 50 2020-0 Yes [id number] 50mg Take 1 Univers mg tablet 1-07 tablet by ity o f 00:00: mouth [place] 00 every 6 Medical (six) Branch hours as needed for Pain (scale 7-10). traMADol 50 2020-0 Yes [id number] 50mg Take 1 Univers mg tablet 1-07 tablet by ity o f 00:00: mouth [place] 00 every 6 Medical (six) Branch hours as needed for Pain (scale 7-10). traMADol 50 2020-0 Yes [id number] 50mg Take 1 Univers mg tablet 1-07 tablet by ity o f 00:00: mouth [place] 00 every 6 Medical (six) Branch hours as needed for Pain (scale 7-10). traMADol 50 2020-0 Yes [id number] 50mg Take 1 Univers mg tablet 1-07 tablet by ity o f 00:00: mouth [place] 00 every 6 Medical (six) Branch hours as needed for Pain (scale 7-10). traMADol 50 2020-0 Yes [id number] 50mg Take 1 Univers mg tablet 1-07 tablet by ity o f 00:00: mouth [place] 00 every 6 Medical (six) Branch hours as needed for Pain (scale 7-10). traMADol 50 2020-0 2020- No [id number] 50mg Take 1 Univers mg tablet 1-07 [...] ity of 2 mg tablet 00:58: daily. [address] ARIPiprazol Yes 2mg Take 2 mg U nivers e (ABILIFY) 5-01 by mouth ity of 2 mg tablet 00:58: daily. [address] ARIPiprazol Yes 2mg Take 2 mg U nivers e (ABILIFY) 5-01 by mouth ity of 2 mg tablet 00:58: daily. [address] ARIPiprazol Yes 2mg Take 2 mg U nivers e (ABILIFY) 5-01 by mouth ity of 2 mg tablet 00:58: daily. [address] ARIPiprazol Yes 2mg Take 2 mg U nivers e (ABILIFY) 5-01 by mouth ity of 2 mg tablet 00:58: daily. [address] ARIPiprazol Yes 2mg Take 2 mg U nivers e (ABILIFY) 5-01 by mouth ity of 2 mg tablet 00:58: daily. [address] ARIPiprazol Yes 2mg Take 2 mg U nivers e (ABILIFY) 5-01 by mouth ity of 2 mg tablet 00:58: daily. [address] divalproex Yes 500mg Take 500 Un [...] (TRILEPTAL) 00:58: [place] 300 mg 10 Medical [facility] ARIPiprazol Yes 2mg Take 2 mg U nivers e (ABILIFY) 4-30 by mouth ity of 2 mg tablet 19:58: daily. [address] ARIPiprazol Yes 2mg Take 2 mg U nivers e (ABILIFY) 4-30 by mouth ity of 2 mg tablet 19:58: daily. [address] ARIPiprazol Yes 2mg Take 2 mg U nivers e (ABILIFY) 4-30 by mouth ity of 2 mg tablet 19:58: daily. [address] ARIPiprazol Yes 2mg Take 2 mg U nivers e (ABILIFY) 4-30 by mouth ity of 2 mg tablet 19:58: daily. [address] ARIPiprazol Yes 2mg Take 2 mg U nivers e (ABILIFY) 4-30 by mouth ity of 2 mg tablet 19:58: daily. [address] ARIPiprazol Yes 2mg Take 2 mg U nivers e (ABILIFY) 4-30 by mouth ity of 2 mg tablet 19:58: daily. [address] ARIPiprazol 0 Yes 2mg Take 2 mg U nivers e (ABILIFY) 4-30 by mouth ity of 2 mg tablet 19:58: daily. [address] ARIPiprazol 0 Yes 2mg Take 2 mg U nivers e (ABILIFY) 4-30 by mouth ity of 2 mg tablet 19:58: daily. [address] ARIPiprazol Yes 2mg Take 2 mg [...] divalproex 2018-0 Yes 500mg Take 500 Un hcris ER 4-30 mg by ity of (DEPAKOTE [...] 17:32:00 130 mm[Hg] Univer sity of pressure [place] [facility] Diastolic blood 2022-09-24 17:32:00 85 mm[Hg] Unive rsity of pressure [place] [facility] Heart rate 2022-09-24 17:32:00 64 /min Universi ty of [place] [facility] Body temperature 2022-09-24 17:32:00 36.83 [facility] Univ ersity of [place] [facility] Respiratory rate 2022-09-24 17:32:00 18 /min Univ ersity of [place] [facility] Body weight 2022-09-24 17:32:00 74.844 kg Universi ty of [place] [facility] BMI 2022-09-24 17:32:00 33.33 kg/m2 Universi ty of [facility] Oxygen saturation in 2022-09-24 17:32:00 99 /min University of Arterial blood by [facility] Pulse oximetry Branch Systolic blood 2022-09-10 23:55:00 111 mm[Hg] Univer sity of pressure [place] [facility] Diastolic blood 2022-09-10 23:55:00 84 mm[Hg] Unive rsity of pressure [place] [facility] Heart rate 2022-09-10 23:55:00 105 /min Universi ty of [place] [facility] Body temperature 2022-09-10 23:55:00 37.33 [facility] Univ ersity of [place] [facility] Respiratory rate 2022-09-10 23:55:00 19 /min Univ ersity of [place] [facility] Systolic blood 2022-09-10 01:44:00 126 mm[Hg] Univer sity of pressure [place] [facility] Diastolic blood 2022-09-10 01:44:00 81 mm[Hg] Unive rsity of pressure [place] [facility] Heart rate 2022-09-10 01:44:00 78 /min Universi ty of [place] [facility] Body temperature 2022-09-10 01:44:00 36.56 [facility] Univ ersity of [place] [facility] Respiratory rate 2022-09-10 01:44:00 16 /min Univ ersity of [place] [facility] Body weight 2022-09-10 01:44:00 79.379 kg Universi ty of [place] [facility] BMI 2022-09-10 01:44:00 35.35 kg/m2 [...] 98 /min University of Arterial blood by [facility] Pulse oximetry Branch Body temperature 2022-09-06 23:05:00 36.78 [facility] Univ ersity of [place] [facility] Body weight 2022-09-06 23:05:00 79.379 kg Universi ty of [place] [facility] BMI 2022-09-06 23:05:00 35.35 kg/m2 Universi ty of [place] [facility] Systolic blood 2021-10-02 20:55:00 111 mm[Hg] Univer sity of pressure [place] [facility] Diastolic blood 2021-10-02 20:55:00 70 mm[Hg] Unive rsity of pressure [place] [facility] Heart rate 2021-10-02 20:55:00 79 /min Universi ty of [place] [facility] Body temperature 2021-10-02 20:55:00 36.61 [facility] Univ ersity of [place] [facility] Respiratory rate 2021-10-02 20:55:00 18 /min Univ ersity of [place] [facility] Body height 2021-10-02 20:55:00 149.9 cm Universi ty of [place] [facility] Body weight 2021-10-02 20:55:00 79.379 kg Universi ty of [place] [facility] BMI 2021-10-02 20:55:00 35.35 kg/m2 Universi ty of [place] [facility] Oxygen saturation in 2021-10-02 20:55:00 100 /min University of Arterial blood by [facility] Pulse oximetry Branch Systolic blood 2021-05-05 19:20:00 102 mm[Hg] Univer sity of pressure [place] [facility] Diastolic blood 2021-05-05 19:20:00 48 mm[Hg] Unive rsity of pressure [place] [facility] Heart rate 2021-05-05 19:20:00 68 /min Universi ty of [place] [facility] Body temperature 2021-05-05 19:20:00 36.94 [facility] Univ ersity of [place] [facility] Respiratory rate 2021-05-05 19:20:00 18 /min Univ ersity of [place] [facility] Body weight 2021-05-05 19:20:00 79.379 kg Universi ty of [place] [facility] BMI 2021-05-05 19:20:00 35.35 kg/m2 Universi ty of [place] [facility] Oxygen saturation in 2021-05-05 19:20:00 99 /min University of Arterial blood by [facility] gracie Pulse oximetry Branch Systolic blood 2019-12-15 22:12:00 138 mm[Hg] Univer sity of pressure [place] [facility] Diastolic blood 2019-12-15 22:12:00 100 mm[Hg] Unive rsity of pressure [place] [facility] Heart rate 2019-12-15 22:12:00 77 /min Universi ty of [place] [facility] Body temperature 2019-12-15 22:12:00 37.06 [facility] Univ ersity of [place] [facility] Respiratory rate 2019-12-15 22:12:00 20 /min Univ ersity of [place] [facility] Body weight 2019-12-15 22:12:00 79.379 kg Universi ty of [place] [facility] BMI 2019-12-15 22:12:00 35.35 kg/m2 Universi ty of [place] [facility] Oxygen saturation in 2019-12-15 22:12:00 100 /min University of Arterial blood by [facility] gracie Pulse oximetry Branch Systolic blood 2019-12-15 22:12:00 138 mm[Hg] Univer sity of pressure [place] [facility] Diastolic blood 2019-12-15 22:12:00 100 mm[Hg] Unive rsity of pressure [place] [facility] Heart rate 2019-12-15 22:12:00 77 /min Universi ty of [place] [facility] Body temperature 2019-12-15 22:12:00 37.06 [facility] Univ ersity of [place] [facility] Respiratory rate 2019-12-15 22:12:00 20 /min Univ ersity of [place] [facility] Body weight 2019-12-15 22:12:00 79.379 kg Universi ty of [place] [facility] BMI 2019-12-15 22:12:00 35.35 kg/m2 Universi ty of [place] [facility] Oxygen saturation in 2019-12-15 22:12:00 100 /min University of Arterial blood by [facility] Pulse oximetry Branch Respiratory rate 2019-10-25 23:43:00 18 /min Univ ersity of [place] [facility] Body weight 2019-10-25 23:43:00 83.915 kg Universi ty of [place] [facility] BMI 2019-10-25 23:43:00 37.37 kg/m2 Universi ty of [place] [facility] Respiratory rate 2019-10-25 23:43:00 18 /min Univ ersity of [place] [facility] Body weight 2019-10-25 23:43:00 83.915 kg Universi ty of [place] [facility] BMI 2019-10-25 23:43:00 37.37 kg/m2 Universi ty of [place] [facility] Systolic blood 2019-08-13 19:25:00 123 mm[Hg] Univer sity of pressure [place] [facility] Diastolic blood 2019-08-13 19:25:00 88 mm[Hg] Unive rsity of pressure [place] [facility] Heart rate 2019-08-13 19:25:00 78 /min Universi ty of [place] [facility] Body temperature 2019-08-13 19:25:00 36.56 [facility] Univ ersity of [place] [facility] Respiratory rate 2019-08-13 19:25:00 18 /min Univ ersity of [place] [facility] Body height 2019-08-13 19:25:00 149.9 cm Universi ty of [place] [facility] Body weight 2019-08-13 19:25:00 90.719 kg Universi ty of [place] [facility] BMI 2019-08-13 19:25:00 40.40 kg/m2 Universi ty of [place] [facility] Oxygen saturation in 2019-08-13 19:25:00 100 /min University of Arterial blood by [facility] Pulse oximetry Branch Systolic blood 2019-08-13 19:25:00 123 mm[Hg] Univer sity of pressure [place] [facility] Diastolic blood 2019-08-13 19:25:00 88 mm[Hg] Unive rsity of pressure [place] [facility] Heart rate 2019-08-13 19:25:00 78 /min Universi ty of [place] [facility] Body temperature 2019-08-13 19:25:00 36.56 [facility] Univ ersity of [place] [facility] Respiratory rate 2019-08-13 19:25:00 18 /min Univ ersity of [place] [facility] Body height 2019-08-13 19:25:00 149.9 cm Universi ty of [place] [facility] Body weight 2019-08-13 19:25:00 90.719 kg Universi ty of [place] [facility] BMI 2019-08-13 19:25:00 40.40 kg/m2 Universi ty of [place] [facility] Oxygen saturation in 2019-08-13 19:25:00 100 /min University of Arterial blood by [place] [employer] gracie Pulse oximetry Branch Systolic blood 2019-07-23 00:20:15 120 mm[Hg] Univer sity of pressure [place] [facility] Diastolic blood 2019-07-23 00:20:15 74 mm[Hg] Unive rsity of pressure [place] [facility] Heart rate 2019-07-23 00:20:15 82 /min Universi ty of [place] [facility] [place] Respiratory rate 2019-07-23 00:20:15 19 /min Univ ersity of [place] [facility] Oxygen saturation in 2019-07-23 00:20:15 100 /min University of Arterial blood by [place] [employer] gracie Pulse oximetry Branch Body temperature 2019-07-22 19:41:00 36.33 [facility] ersity of [place] [facility] Body weight 2019-07-22 19:39:00 90.719 kg Universi ty of [place] [facility] BMI 2019-07-22 19:39:00 39.06 kg/m2 Universi ty of [place] [facility] Systolic blood 2019-07-23 00:20:15 120 mm[Hg] Univer sity of pressure [place] [facility] Diastolic blood 2019-07-23 00:20:15 74 mm[Hg] Unive rsity of pressure [place] [facility] Heart rate 2019-07-23 00:20:15 82 /min Universi ty of [place] [facility] Respiratory rate 2019-07-23 00:20:15 19 /min Univ ersity of [place] [facility] Oxygen saturation in 2019-07-23 00:20:15 100 /min University of Arterial blood by [place] [employer] gracie Pulse oximetry Branch Body temperature 2019-07-22 19:41:00 36.33 [facility] ersity of [place] [facility] Body weight 2019-07-22 19:39:00 90.719 kg Universi ty of [place] [facility] BMI 2019-07-22 19:39:00 39.06 kg/m2 [facility] Systolic blood 2019-07-14 03:33:00 127 mm[Hg] [facility] Diastolic blood 2019-07-14 03:33:00 88 mm[Hg] [facility] Heart rate 2019-07-14 03:33:00 79 /min [facility] Respiratory rate 2019-07-14 03:33:00 16 /min [facility] Oxygen saturation in 2019-07-14 03:33:00 97 /min [facility] Arterial blood by [place] [employer] gracie Pulse oximetry Branch Body weight 2019-07-14 02:16:00 90.719 kg [facility] BMI 2019-07-14 02:16:00 39.06 kg/m2 [facility] Body temperature 2019-07-14 02:15:00 36.78 Oma [facility] Body weight 2019-07-10 20:39:00 90.719 kg [facility] BMI 2019-07-10 20:39:00 39.06 kg/m2 [facility] Systolic blood 2019-01-21 23:34:00 133 mm[Hg] [facility] Diastolic blood 2019-01-21 23:34:00 78 mm[Hg] [facility] Heart rate 2019-01-21 23:34:00 66 /min [facility] Body temperature 2019-01-21 23:34:00 36.94 Oma [facility] Respiratory rate 2019-01-21 23:34:00 18 /min [facility] Body height 2019-01-21 23:34:00 147.3 cm [facility] Body weight 2019-01-21 23:34:00 68.04 kg [facility] BMI 2019-01-21 23:34:00 31.35 kg/m2 [facility] Oxygen saturation in 2019-01-21 23:34:00 100 /min [facility] Arterial blood by lang[employer] gracie Pulse oximetry Branch Systolic blood 2019-01-21 23:34:00 133 mm[Hg] Univer sity of pressure [facility] Diastolic blood 2019-01-21 23:34:00 78 mm[Hg] Unive rsity of pressure [facility] Heart rate 2019-01-21 23:34:00 66 /min [facility]i ty [facility] Body temperature 2019-01-21 23:34:00 36.94 Oma [facility] Respiratory rate 2019-01-21 23:34:00 18 /min [facility] Body height 2019-01-21 23:34:[address] [facility] Body weight 2019-01-21 23:34:00 [facility] 2019-01-21 23:34:00 31.35 kg/m2 [facility] Oxygen saturation in 2019-01-21 23:34:00 100 /min [facility] Arterial blood by [facility] Pulse oximetry Branch BP Systolic 2022-07-17 15:20:00 [...] COMP. METABOLIC PANEL 2022-09-07 01:38:00 Tayo Boyd [facility] ([id number]) Medical [place] CBC WITH DIFF 2022-09-07 01:38:00 Tayo Boyd [facility] URINALYSIS 2022-09-07 01:38:00 Tayo Boyd [facility] XR ANKLE <3 VW LEFT 2022-09-07 00:56:00 Tayo Boyd [facility] XR FOOT <3 VW LEFT 2022-09-07 00:56:00 Tayo Boyd [facility] CONSENT/REFUSAL FOR 2022-09-06 22:08:37 Doctor Unassigned, No Un [facility] DIAGNOSIS AND TREATMENT Name Medical Branch CT CERVICAL SPINE WO 2021-10-02 21:53:00 Javed Frank [facility] CONTRAST [facility] Branch CT LUMBAR SPINE WO 2021-10-02 21:53:00 Javed Frank [facility] CONTRAST [facility] Branch CT THORACIC SPINE WO 2021-10-02 21:53:00 Javed Frank [facility] XR FOREARM 2 VW RIGHT 2021-05-05 20:03:34 Deon Nunez [facility] XR WRIST 3+ VW RIGHT 2021-05-05 20:03:34 Deon Nunez [facility] NOTICE OF PRIVACY 2021-05-05 19:12:00 Doctor Unassigned, No [facility] [place] [facility] CONSENT/REFUSAL FOR 2021-05-05 19:11:19 Doctor Unassigned, No Un [facility] [place] [facility] CONSENT/REFUSAL FOR 2019-08-13 19:17:22 Doctor Unassigned, No Un [facility] [place] [facility] CT HEAD WO CONTRAST 2019-07-22 22:24:37 Ofe Samayoa [facility] XR CERVICAL SPINE 2 VW 2019-07-22 21:59:59 Ofe Samayoa [facility] CBC WITH DIFFERENTIAL 2019-07-22 21:34:00 Ofe Samayoa [facility] XR CERVICAL SPINE 2 VW 2019-07-14 02:43:00 Henry Owen [facility] XR ELBOW <3 VW LEFT 2019-07-14 02:43:00 Henry Owen [facility] XR KNEE <3 VW RIGHT 2019-07-14 02:43:00 Henry Owen [facility] XR SHOULDER <2 VW LEFT 2019-07-14 02:43:00 Henry Owen [facility] [id number] Ecg Routine Ecg 2017-09-24 00:00:00 W/least 12 Lds W/i r Plan of Care Planned Activity Planned Date Details Comments Source Goal Plan of Care Note [code = 37896-6] Goal Plan of Care Note [code = 77764-2] Goal Plan of Care Note [code = 34214-6] Goal Plan of Care Note [code = 77950-7] Goal Plan of Care Note [code = 04490-9] Goal Plan of Care Note [code = 85749-1] Goal Plan of Care Note [code = 50291-2] Goal Plan of Care Note [code = 66471-7] Goal Plan of Care Note [code = 56484-0] Goal Plan of Care Note [code = 93656-2] Goal Plan of Care Note [code = 30122-1] Goal Plan of Care Note [code = 66318-5] Goal Plan of Care Note [code = 17012-6] Goal Plan of Care Note [code = 45579-6] Goal Plan of Care Note [code = 75936-2] Goal Plan of Care Note [code = 66541-9] Goal Plan of Care Note [code = 31744-0] Goal Plan of Care Note [code = 92538-7] Goal Plan of Care Note [code = 83535-4] Goal Plan of Care Note [code = 56064-0] Goal Plan of Care Note [code = 05912-6] Goal Plan of Care Note [code = 36703-3] Goal Plan of Care Note [code = 31000-6] Goal Plan of Care Note [code = 60736-9] Goal Plan of Care Note [code = 74187-9] Goal Plan of Care Note [code = 55166-9] Goal Plan of Care Note [code = 94707-9] Goal Plan of Care Note [code = 91147-7] Goal Plan of Care Note [code = 93163-4] Encounters Start End Encounter Admission Attending Care Care Encounter Source Date/Time Date/Time Type Type Clinicians Facility Department ID 2022-11-13 Inpatient TEXANA TEXANA [id number] [place] 13:10:28 [id number] [place] 2022-11-05 Inpatient TEXANA TEXANA [id number] [place] 09:23:13 [id number] [place] 2023-03-02 2023-03-02 Outpatient SFA SFA [id number] Henry 12:27:43 12:27:43 [id number] [facility] 2023-01-09 2023-01-09 Outpatient SFA SFA [id number] Henry 17:11:26 17:11:26 0719 [facility] 2022-11-04 2022-11-05 Emergency Linda PAIGE [facility] [id number] [address] [place] [address] 14:04:00 11:09:00 JESS argueta [place] 2022-09-24 2022-09-24 Emergency YUDITH Snow 1.2.840.114 [id number] [facility] 12:33:00 12:51:00 Heri PRATHER 350.1.13.10 magdi Rivera 4.2.7.2.686 [facility] [id number] [facility] 084 Branch 2022-09-22 2022-09-22 Nurse Marisa COX 1.2.840.114 [id number] Univers 00:00:00 00:00:00 Triage Madhavi barclay ROCÍO 350.1.13.[address] [facility] 4.2.7.2.686 Dinesh as [id number] [facility] 019 Branch 2022-09-18 2022-09-19 Inpatient EM [facility] [id number] [facility] 10:09:00 14:28:00 25 [facility] 2022-09-16 2022-09-17 Emergency EM Guero, [facility] FABI [id number] [facility] 22:50:00 01:40:00 Asim 33 [facility] 2022-09-14 2022-09-15 Inpatient EM Andrei, [facility] TELE [id number] [facility] 14:52:00 14:00:00 Vladimir 75 [facility] 2022-09-13 2022-09-13 Emergency EM Jose C, [facility] FABI [id number] [facility] 09:34:00 13:00:00 Brad 75 [facility] 2022-09-10 2022-09-11 Emergency EM Donato, [facility] [id number] [facility] 23:39:00 11:28:00 Russel 51 [facility] 2022-09-10 2022-09-10 Emergency Shelbie, Lisa S TRAUMA 1.2.84 0.114 [id number] Univers 18:57:00 20:20:00 Sandrita Key [facility] 350.1.13.10 ity [facility].2.[place] [id number] [facility] 014 Branch 2022-09-10 2022-09-10 Emergency X [facility] ERT [id number] Univers 18:57:00 20:20:00 [facility]22-[facility] 2022-09-09 Emergency X [facility] ERT [id number] Univers 20:45:00 22:46:00 SANDRITA [facility] 2022-09-09 2022-09-09 Emergency Key, TRAUMA 1.2.043.135 [id number] Univers 20:45:00 22:46:00 [facility] 350.1.13.10 [place] [id number] [facility] 014 [place] 2022-09-06 2022-09-07 Emergency X VASUT, [facility] ERT [id number] Univers 18:09:00 00:51:[address] [facility] 2022-09-06 2022-09-07 Emergency Vasut, TRAUMA 1.2.078.825 [id number] Univers 18:09:00 00:51:00 Tayo [facility] 350.1.13.10 it [place] [id number] [facility] 014 [place] 2022-08-21 2022-08-21 Outpatient SFA SFA [id number] Henry 14:11:33 14:11:33 0228 [place] 2022-07-17 2022-07-17 Outpatient SFA SFA [id number] Henry 15:03:48 15:03:48 0124 [place] 2022-07-17 2022-07-17 Outpatient [id number] [id number] 00:00:00 00:00:00 Visit [id number] [id number] 2021-10-02 2021-10-02 Emergency X FRANK, [facility] ERT [id number] Univers 15:56:00 19:00:[address] [facility] 2021-10-02 2021-10-02 Emergency [facility] 1.2.840.114 [id number] Univers 15:56:00 19:00:00 Javed PRATHER 350.1.13.10 i ty of [place].2.686 [place] [id number] [facility] 084 [place] 2021-05-05 2021-05-05 Emergency X [facility] ERT [id number] Univers 13:22:00 14:48:[address] [facility] 2021-05-05 2021-05-05 Emergency Singer [facility] 1.2.815.008 [id number] Univers 13:22:00 14:48:00 Deon PRATHER 350.1.13.10 i ty of [facility] 4.2.7.2.686 [facility] [id number] [address] 2021-05-05 2021-05-05 Orders Doctor KENNY 1.2.840.114 [id number] Univers 00:00:00 00:00:00 Only Unassigned, ROCÍO 350.1.13.[address] [place] [facility] 4.2.7.2.686 [facility] [id number] [place] [address] Branch 2019-12-15 2019-12-15 Emergency Kp Gilliland [facility] 1.2.840.114 [id number] Univers 17:11:56 18:04:00 Marissa Lisa 350.1.13.10 i ty of [place] 4.2.7.2.686 [facility] [id number] [address] 2019-12-15 2019-12-15 Emergency Kp Gilliland [facility] 1.2.840.114 [id number] 17:11:56 18:04:00 Marissa Prather 350.1.13.10 [place] 4.2.7.2.686 [place] [id number] [facility] 2019-12-15 2019-12-15 Emergency X Kp GILLILAND [facility] ERT [id number] Univers 17:11:56 17:11:56 ity of [facility] 2019-10-25 2019-10-25 Emergency Paul, [facility] 1.2.036.868 [id number] Univers 18:31:31 19:21:00 Kristin Prather 350.1.13.10 i ty of [place] 4.2.7.2.686 [facility] [id number] [place] [address] Branch 2019-10-25 2019-10-25 Emergency [facility] 1.2.417.476 [id number] 18:31:31 19:21:00 Kristin Prather 350.1.13.10 [place] 4.2.7.2.686 [place] [id number] [facility] 2019-10-25 2019-10-25 Emergency X PAUL [facility] ERT [id number] Univers 18:31:31 18:31:31 CYNAUREA itcindy of [facility] 2019-08-13 2019-08-13 Emergency [facility] 1.2.992.090 [id number] Univers 13:30:00 14:36:00 Floridalma Prather 350.1.13.10 i ty [place] 4[place]2.7[place]2.686 [place] [id number] [address] 2019-08-13 2019-08-13 Emergency X [facility] ERT [id number] Univers 13:30:00 14:36:[address] [facility] 2019-08-13 2019-08-13 Emergency [facility] 1.2.417.939 [id number] 13:30:00 14:36:00 Floridalma Prather 350.1.13.10 [place] 4.2.7.2.686 [place] [id number] [facility] 2019-07-22 2019-07-22 Emergency X [facility] ERT [id number] Univers 13:42:11 19:02:[address] [facility] 2019-07-22 2019-07-22 Emergency Unknown, Attending TRAUMA 1.2.8 40.114 [id number] Univers 13:42:11 19:02:00 Lisa Morfin S CENTER 350.1.13.10 [place] [id number] [address] 2019-07-22 2019-07-22 Emergency Unknown, Attending TRAUMA 1.2.8 40.114 [id number] 13:42:11 19:02:00 Lisa Morfin S CENTER 350.1.13.10 4.2.7.2.686 [id number] 014 2019-07-13 2019-07-13 Emergency X [facility] ERT [id number] Univers 20:17:19 21:48:[address] [facility] 2019-07-13 2019-07-13 Emergency Lexie, TRAUMA 1.2.011.012 [id number] Univers 20:17:19 21:48:00 Henry CENTER 350.1.13.10 it [place] [id number] [address] 2019-07-10 2019-07-10 Emergency X [facility] ERT [id number] Univers 14:26:03 16:33:[address] [facility] 2019-07-10 2019-07-10 Emergency [facility] 1.2.840.114 [id number] Univers 14:26:03 16:33:00 Debbie Babb Lisa 350.1.13.10 ity [facility] 4.2.7.[address] [place] [id number] 2019-07-04 2019-07-04 Emergency X [facility] ERT [id number] Univers 19:09:02 22:51:[address] [facility] 2019-06-30 2019-06-30 Emergency X [facility] ERT [id number] Univers 10:33:08 13:10:[address] [facility] 2019-05-25 2019-05-25 Emergency X [facility] ERT [id number] Univers 11:58:19 15:37:[address] [facility] 2019-04-09 2019-04-09 Emergency X [facility] ERT [id number] Univers 22:29:37 23:28:00 FLORIDALMA [facility] 2019-01-21 2019-01-21 Emergency [facility] 1.2.631.343 [id number] Univers 18:38:01 19:59:00 Le Nakul Prather 350.1.13.10 ity [facility] 4.2.7.2.[address] [place] [id number] 2019-01-21 2019-01-21 Emergency [facility] 1.2.077.967 [id number] 18:38:01 19:59:00 Le Mota Lisa 350.1.13.[address] [place] [address] [id number] Results Test Description Test Time Test Comments Results Result Comments Source TRANSFERRIN 2023-03-04 01:13:06 Test Item Value Reference Range Interpretation Comme nts TRANSFERRIN (test code = 4936) 315 MG/DL 200-360 UNLESS OTHERWISE INDICATED, ALL TESTING PERFORM ED AT [facility] [address] [place] [address] LABORATORY DIRE CTOR: Derek FINN NEIL NUMBER [id number] [place]. [id number] LIPID [id number] 01:12:48 Test Item Value Reference Range Interpretation [...] MOREINFORMATION , SEE CLIENT ANNOUNCE MENT AT [email or web address] RISK RATIO LDL/HDL 1.34 RATIO <3.22 (test code = 2238) COMPREHENSIVE METABOLIC [id number] 01:12:48 Test Item Value Reference Range Interpretation Comments GLUCOSE (test code = 92 MG/DL 70-99 2216) BUN (test code = 15 MG/DL 6-20 2207) CREATININE (test 0.65 MG/DL 0.60-1.30 code = 2214) eGFR (2020 CKD-EPI) 108 >60 (test code = 17647) ML/MIN/1.73 CALC BUN/CREAT (test 23 RATIO 6-28 code = 2235) SODIUM (test code = 135 MEQ/L 577-575 9978) POTASSIUM (test code 4.2 MEQ/L 3.5-5.4 = [...] IRON BINDING CAPACITY AND IRON AND % [id number] 01:12:48 Test Item Value Reference Range Interpretation Comments IRON, SERUM (test code = 2221) 51 UG/DL 37-145 UNSATURATED IBC (test code = 07691) 356 UG/DL 112-347 H CALC TOTAL IBC (test code = 2076) 407 UG/DL 250-450 CALC % IRON SAT (test code = 2078) 13 % 20-50 L [id number] 00:59:24 Test Item Value Reference Range Interpretation Comments FERRITIN (test code = 2074) 20 NG/ML 13-200 HEMOGLOBIN [id number] 03:08:40 Test Item Value Reference Range Interpretation Comments HEMOGLOBIN A1c (test code = 41808) 5.5 % 4.2-5.6 CBC W/AUTO DIFF WITH [id number] 02:29:36 Test Item Value Reference Range Interpretation [...] RBCS 0.00 K/UL 0.00-0.11 (test code = 57251) DRUGS OF [id number] 05:03:00 Test Item Value Reference Range Interpretation [...] 200 ng/mL Opiates 300 ng/mL URINALYSIS WITH [id number] 04:56:00 Test Item Value Reference Range Interpretation [...] (test code = USPERM) /HPF NONE URINE [id number] 04:53:00 Test Item Value Reference Range Interpretation [...] the FDA and the [employer] of the [employer] (CAP) are more stringent than those required for this test. Therefore, the result should be interpreted with caution and close attention to other clinical and epidemiological data [id number] 16:00:00 Test Item Value Reference Range Interpretation Comments SALICYLATE (test code = 94B) <3.0 mg/dL 15.0-30.0 L LIVER [id number] 15:49:00 Test Item Value Reference Range Interpretation [...] IU/L See_Comment [Automated message] 30A) The system gamigo generated this result transmitted ref erence range: <=33. Th e reference range was not used to interpr et this result as normal/abnormal . ALT (test code = <7 IU/L 10-49 L 31A) [id number] 15:48:00 Test Item Value Reference Range Interpretation Comments ACETAMINPH (test code = 94M) <0.2 mg/dL 1.2-2.5 L ALCOHOL BLOOD (ETOH)2022-11-04 15:48:00 Test Item Value Reference Range Interpretation Comments ETOH (test code = ETHANOL HALC) The result is to be used only for medical purposes ALCOHOL (test <10 mg/dL See_Comment [Automated me ssage] code = 56A) The system [employer]igo generated this result transmit isabel reference range : <=10. The refer ence range was not u sed to interpret th is result as normal/abnormal . 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 Old healed fractures of the distal tibia and fibular noted.Soft tissues: Unremarkable.IMPRESSION: No acute findings.Electronically signed by: Nikko Santiago MD 11/04/2022 3:10 PM CDT [id number] BEDSIDE [id number] 11:51:00 Test Item Value Reference Range Interpretation Comments GLUCOSE BEDSIDE TESTING (test code = 79 MG/DL 70-119 N GLUBED) GLUCOSE BEDSIDE [id number] 06:23:00 Test Item Value Reference Range Interpretation Comments GLUCOSE BEDSIDE TESTING (test code = 80 MG/DL 70-119 N GLUBED) BASIC METABOLIC [id number] 05:12:00 Test Item Value Reference Range Interpretation [...] (test code = MG Index/DL The system gamigo HEMINDEX) generated this result transmitted ref erence range: 1 NORMAL . The reference range was not used to int erpret this result as normal/abnormal . INDEX ICTERIC 1 NORMAL <2 MG See_Comment [Automated message] (test code = Index/DL The system [employer] ICTINDEX) generated this result transmitted ref erence range: 1 NORMAL . The reference range was not used to int erpret this result as normal/abnormal . INDEX LIPEMIA 1 NORMAL <50 See_Comment [Automated me ssage] (test code = MG Index/DL The system [employer]igo LIPINDInVivioLink) generated this result transmitted ref erence range: [...] <2.0 indicates None DetectedPerform ed At: [facility] [address] [id number] keven Argueta MD Ph:[phone] GLUCOSE BEDSIDE [id number] 19:51:00 Test Item Value Reference Range Interpretation Comments GLUCOSE BEDSIDE TESTING (test code 129 MG/DL 70-119 H = GLUBED) OSMOLALITY [id number] 17:56:00 Test Item Value Reference Range Interpretation Comments OSMOLALITY SERUM (test code = 269 mOsm/kg 275-300 L OSMO) THYROID STIMULATING [id number] 17:56:00 Test Item Value Reference Range Interpretation Comments THYROID STIMULATING HORMONE 4.190 mc IU/ML 0.340-4.820 N (test code = TSH) GLUCOSE BEDSIDE [id number] 15:49:00 Test Item Value Reference Range Interpretation Comments GLUCOSE BEDSIDE TESTING (test code = 86 MG/DL 70-119 N GLUBED) CREATINE KINASE (CK)2022-09-18 14:33:00 Test Item Value Reference Range Interpretation Comments CREATINE KINASE (CK) (test code = 145 Unit/L 26-192 N CK) VALPROIC ACID (DEPAKENE)2022-09-18 14:26:00 Test Item Value Reference Range Interpretation Comments VALPROIC ACID (DEPAKENE) (test 37.5 mcG/ML 50.0-100.0 L code = VALP) [id number] 14:26:00 Test Item Value Reference Range Interpretation Comments AMMONIA (test code = AMM) 29.0 mcMOL/L 11.0-32.0 N GLUCOSE BEDSIDE [id number] 11:51:00 Test Item Value Reference Range Interpretation Comments GLUCOSE BEDSIDE TESTING (test code = 88 MG/DL 70-119 N GLUBED) GLYCOSYLATED HEMOGLOBIN (HA1C)2022-09-18 06:53:00 Test Item Value Reference Range Interpretation Comments GLYCOSYLATED HEMOGLOBIN (HA1C) 5.2 % IS-A1C 4.5-5.6 N (test code = GLYHGB) ESTIMATED AVERAGE [id number] 06:53:00 Test Item Value Reference Range Interpretation [...] ave rage [Automated mess age] The system gamigo generated this result transmit isabel reference range [...] interpret this result as normal/abnormal . UR [id number] 21:28:00 Test Item Value Reference Range Interpretation Comments UR SODIUM RANDOM 93 mmol/L 40-200 N (test code = JESUSITA) UR POTASSIUM RANDOM 54.8 mmol/L 25-125 N NO ESTAB LISHED NORMAL (test code = KU) RANGES FOR RANDOM SPECIMENS. UR CHLORIDE RANDOM 164 mmol/L 110-150 H (test code = CLU) UR OSMOLALITY [id number] 21:28:00 Test Item Value Reference Range Interpretation Comments UR OSMOLALITY RANDOM (test code = 475 mOsm/kg 100-1400 N OSMOU) CBC W/O [id number] 20:05:00 Test Item Value Reference Range Interpretation [...] = 9.5 fL 6.8-11.2 N MPV) LACTIC [id number] 19:35:00 Test Item Value Reference Range Interpretation Comments LACTIC ACID (test code = LACT) 1.0 mmol/L 0.4-2.0 N HCG SERUM [id number] 19:31:00 Test Item Value Reference Range Interpretation Comments HCG SERUM QUAL (test code = Negative SCREEN NEG HCGQL) - CT HEAD/BRAIN W/O [id number] 18:59:00 [facility] BHUM[facility]A JON[facility] : 1975 Sex: F Patient Name: BHUMIKA JONES Unit No: [id number] EXAMS: CPT CODE: [id number] CT HEAD/BRAIN W/O [id number] Location: H3 CT head, conducted on 09/17/22 [...] Marie(Abner)(CT) CTDI: DLP: Trnscrpt: 09/17/2022 (1858) [email or web address] [facility] NAME: KRUNAL JONES[address] PHYS: Valentina Matt[place], [place] [address] : 1975 AGE: 47 SEX:F LOC: JOSHUA 20 PHONE #: [phone] EXAM DATE: 09/17/2022 STATUS: ADM IN FAX #: [phone] RAD #: D/C DT PAGE 1 Signed Report Patient Name: KRUNAL JONESPCION Unit No: [id number] EXAMS: CPT CODE: [id number] CT HEAD/BRAIN W/O CONT 84816 (Continued) Orig Print D/T: S: 09/17/2022 (1902) DENIZ Lugo NAME: [address] PHYS: Valentina Mattson MD, [place] [address] : 1975 AGE: 47 SEX: F LOC: B.ERMED 20 PHONE #: [phone] EXAM DATE: 09/17/2022 STATUS: ADM IN FAX #: [phone] RAD #: D/C DT PAGE 2 Signed ReportURINALYSIS [id number] 16:28:00 Test Item Value Reference Range Interpretation [...] code = SQU) DRUGS OF ABUSE SCREEN [id number] 16:28:00 Test Item Value Reference Interpretation Comments [...] this result as normal/abnormal . TROP-I HIGH [id number] 16:26:00 Test Item Value Reference Range Interpretation [...] URLs may vary b ymethod. BASIC METABOLIC [id number] 16:25:00 Test Item Value Reference Range Interpretation [...] (test code = MG Index/DL The system gamigo HEMINDEX) generated this result transmitted ref erence range: 1 NORMAL . The reference range was not used to int erpret this result as normal/abnormal . INDEX ICTERIC 1 NORMAL <2 MG See_Comment [Automated message] (test code = Index/DL The system gamigo ICTINDEX) generated this result transmitted ref erence range: 1 NORMAL . The reference range was not used to int erpret this result as normal/abnormal . INDEX LIPEMIA 1 NORMAL <50 See_Comment [Automated me ssage] (test code = MG Index/DL The system gamigo LIPINDEX) generated this result transmitted ref erence range: 1 NORMAL . The reference range was not used to int erpret this result as normal/abnormal . HEPATIC FUNCTION [id number] 16:25:00 Test Item Value Reference Range Interpretation [...] code = 92 Unit/L 26-192 N CK) [id number] 16:25:00 Test Item Value Reference Range Interpretation Comments LIPASE (test code = LIP) 57 Unit/L 114-286 L - CT HEAD/BRAIN W/O [id number] 00:32:00 [facility] : 1975 Sex: F Patient Name: BHUMIKA JONES Unit No: [id number] EXAMS: CPT CODE: [id number] CT HEAD/BRAIN W/O [id number] EXAM: - CT HEAD/BRAIN W/O CONT LOCATION: [...] Trnscrpt: 09/17/2022 (31) NadiyaMKW1 DENIZ Lugo NAME: ROBERT[address] PHYS: - Asim Jack MD, [place] [address] : 1975 AGE: 47 SEX: F LOC: GregorioERS PHONE #: [phone] EXAM DATE: 09/16/2022 STATUS: REG ER FAX #: [phone] RAD #: D/C DT PAGE 1 Signed Report Patient Name: KRUNAL JONESPCION Unit No: [id number] EXAMS: CPT CODE: [id number] CT HEAD/BRAIN W/O CONT 91090 (Continued) Orig Print D/T: S: 09/17/2022 (0035) DENIZ Lugo NAME: [address] PHYS: YASMIN - [place] [address] : 1975 AGE: 47 SEX: FACCT NO: [id number] LOC: B.ERS PHONE #: [phone] EXAM DATE: 09/16/2022 STATUS: REG ER FAX #: RAD #: D/C DT PAGE 2 Signed ReportTROP-I HIGH [id number] 00:13:00 Test Item Value Reference Range Interpretation [...] URLs may vary b ymethod. COMPREHENSIVE METABOLIC [id number] 00:11:00 Test Item Value Reference Range Interpretation [...] (test code = MG Index/DL The system gamigo HEMINDInVivioLink) generated this result transmitted ref erence range: [...] this result as normal/abnormal . CBC W/AUTO [id number] 23:59:00 Test Item Value Reference Range Interpretation [...] = 0.00 K/mm3 0.0-0.05 N NRBC#) - [facility] 1 [id number] 23:34:00 [facility] BHUMIKA JONES : 1975 Sex: F [place]: E St: PRE -- Patient Name: BHUMIKA JONES Unit No: [id number] EXAMS: CPT CODE: [id number] XR CHEST 1 V 51577 EXAMINATION: - XR CHEST 1 V CLINICAL [...] By: NadiyaJH12 Orig Print D/T: S: 09/16/2022 (9563) [facility] NAME: BHUMIKA ROBERSON [address] [place] [address] PHYS: PATCA.02 - Asim Jack MD, [place] [address] : 1975 AGE: 47 SEX: F LOC: MARCOS PHONE #: [phone] EXAM DATE: 09/16/2022 STATUS: PRE ER FAX #: [phone] RAD NO: DC Dt: PAGE 1 Signed [...] indicates None DetectedPerform ed At: [facility] [place] [address] [place], [place] [id number] keven Argueta MD Ph:[phone] VALPROIC ACID (DEPAKENE)2022-09-15 06:12:00 Test Item Value Reference Range Interpretation Comments VALPROIC ACID (DEPAKENE) (test 80.6 mcG/ML 50.0-100.0 N code = VALP) COMPREHENSIVE METABOLIC [id number] 06:00:00 Test Item Value Reference Range Interpretation [...] (test code = MG Index/DL The system gamigo HEMINDEX) generated this result transmitted ref erence [...] this result as normal/abnormal . CBC W/AUTO [id number] 05:37:00 Test Item Value Reference Range Interpretation [...] 0.00 K/mm3 0.0-0.05 N NRBC#) GLUCOSE BEDSIDE [id number] 20:03:00 Test Item Value Reference Range Interpretation Comments GLUCOSE BEDSIDE TESTING (test code 117 MG/DL 70-119 N = GLUBED) DRUGS OF ABUSE SCREEN [id number] 11:42:00 Test Item Value Reference Interpretation Comments [...] as normal/abnormal . - CT HEAD/BRAIN W/O [id number] 11:37:00 [facility] BHUM[facility] JONES : 1975 Sex: F Patient Name: BHUMIKA JONES Unit No: [id number] EXAMS: CPT CODE: [id number] CT HEAD/BRAIN W/O CONT 29411 EXAMINATION: - CT HEAD/BRAIN W/O CONT COMPARISON: [...] MD; Jim Jaimes MD Dictated Date/Time: 09/14/2022 (7615) Technologist: ASUNCION CASTELLANO CTDI: DLP: Trnscrpt: 09/14/2022 (6518) t.[email or web address].[email or web address] DENIZ Lugo NAME: BHUMIKA JONES [facility] PHYS: Vladimir Vazquez MD [address] [place] [address] : 1975 AGE: 47 SEX: Etta LUGO [place] [address] LOC: NEHA 10 PHONE #: [phone] EXAM DATE: 09/14/2022 STATUS: ADM IN FAX #: [phone] RAD #: D/C DT PAGE 1 Signed Report Patient Name: BHUMIKA JONES Unit No: [id number]: CPT CODE: [id number] CT HEAD/BRAIN W/O CONT 76039 (Continued) Orig Print D/T: S: 09/14/2022 (1140) DENIZ Lugo NAME: BHUMIKA JONES [facility] PHYS: Vladimir Menchaca MD [address] [place], [place] [address] : 1975 AGE: 47 SEX: Etta LUGO [place] [address] LOC: NEHA 10 PHONE #: [phone] EXAM DATE: 09/14/2022 STATUS: ADM IN FAX #: [phone] RAD #: D/C DT PAGE 2 Signed [...] prevention in p rosthetic heart 3.0-5.4 A HI mortality reduc tion THROMBOPLASTIN TIME 34.6 SECONDS 24-37.7 N THERAPEU TIC RANGE FOR PARTIAL (test code UNFRACTIO NATED HEPARIN = = PTT) 50.5-83.6 SEC T his test is not recommen ded to monitor low molecularweight heparin or danaparoid. Order LMWH test COLLECTION THROUGH LINES THAT HAVE BEEN PREVIOUSLY FLUS HEDWITH HEPARIN SHOULD BE AVOIDED DUE TO POSSIBLE HEPARINCONTAMIN ATION HCG SERUM [id number] 06:51:00 Test Item Value Reference Range Interpretation [...] (test code = MG Index/DL The system gamigo HEMINDEX) generated this result transmitted ref erence [...] 268 Unit/L 26-192 H CK) CBC W/AUTO [id number] 03:43:00 Test Item Value Reference Range Interpretation [...] = 0.00 K/mm3 0.0-0.05 N NRBC#) URINALYSIS [id number] 03:41:00 Test Item Value Reference Range Interpretation [...] /LPF NONE MUCU) - XR CHEST 2 [id number] 02:06:00 [facility]: BHUM[facility] : 1975 Sex: F FAX: TylerSuleman gipson RUTH [phone] [place]: St: REG Patient Name: BHUMIKA JONES Unit No: [id number] EXAMS: CPT CODE:[id number] XR CHEST 2 V 95675 EXAM: - XR CHEST 2 V HISTORY: [...] (020)By: NadiyaMKM4 Orig Print D/T: S: 09/14/2022 (020) DENIZ Lugo NAME: BHUMIKA JONES [address] [place] [address] PHYS: GISEL CarvalhoSuleman MIRANDA [place], [place] [address] : 1975 AGE: 47 SEX: F LOC: B.ERS PHONE #: [phone] EXAM DATE: 09/14/2022 STATUS: REG ER FAX #: [phone] RAD NO: DC Dt: PAGE 1 Signed Report COMPREHENSIVE METABOLIC [id number] 12:49:00 Test Item Value Reference Range Interpretation [...] (test code = MG Index/DL The system gamigo HEMINDEX) generated this result transmitted ref erence [...] int erpret this result as normal/abnormal . [id number] 12:49:00 Test Item Value Reference Range Interpretation Comments MAGNESIUM (test code = MAG) 1.7 MG/DL 1.6-2.6 N CBC W/AUTO [id number] 12:36:00 Test Item Value Reference Range Interpretation [...] The system which generated this result transmit isable reference range : (NEG) 0. The reference [...] /LPF NONE MUCU) DRUGS OF ABUSE SCREEN [id number] 00:33:00 Test Item Value Reference Range Interpretation [...] 300 ng/mL UA RFLX MICR CULT IF [id number] 00:30:00 Test Item Value Reference Range Interpretation [...] code = CHARLI) UA LEUKOCYTE ESTERASE NEGATIVE Niaf/micL NEGATIVE DIPSTICK (test code = LEUU) UA WBC (test code = WBCU) 0-3 WBC/HPF NONE UA RBC (test code = RBCU) 0-2 RBC/HPF 0-3 UA EPITHELIAL CELLS (test 5-10 EPI/HPF 0-3 A code = EPIU) UA BACTERIA (test code = FEW NONE BACU) Indication for culture: Suprapubic PainSpecimen Description: CLEAN CATCHBASIC METABOLIC [id number] 00:18:00 Test Item Value Reference Range Interpretation [...] 8.0-10.5 N = CA) HEPATIC FUNCTION PANEL [id number] 00:18:00 Test Item Value Reference Range Interpretation [...] 50.0-136.0 N code = ALKP) HCG SERUM [id number] 00:18:00 Test Item Value Reference Range Interpretation Comments HCG SERUM QUAL (test code = HCGQL) NEGATIVE NEGATIVE [id number] 00:18:00 Test Item Value Reference Range Interpretation Comments ALCOHOL (test code 0.00 gm/dL 0.00-0.00 N ETHYL ALC OHOL VALUES - = ALC) INTERPRETATION: 0.050 GM/DL - NOT INT OXICATED 0.100 GM/DL - INTOXICATED 0.3 50-0.450 GM/DL - SEVEREL Y INTOXICATED 0.5 50 GM/DL- FATAL INTOXICAT ION Coronavirus 2019 nCoV [id number] 00:09:00 Test Item Value Reference Range Interpretation Comments Coronavirus 2019 Negative NEGATIVE Negative re sults should be nCoV Bedside (test treated a s presumptive and code = ifinconsistent with [id number]) clinical signs and symptoms, or ne cessaryfor patient managem ent, should be tested with an alternativemole cular assay. Negative result s do not preclude DGAB-ZjO-2alflw tion and should not be u sed as the sole basis forp atient management deci sions. Negative result s should beconsidered in the context of a patient's recent exposures,histo ry, presence of clinical sig ns and symptoms consis tentwith COVID-19. CBC W/AUTO [id number] 23:58:00 Test Item Value Reference Range Interpretation [...] 3uL 0.00-0.01 N NRBC#) COMP. METABOLIC PANEL (26281)2022-09-07 02:12:41 Test Item Value Reference Range Interpretation Comments NA (test code = 133 mmol/L 135-145 L 7939241405) K (test code = 4.4 mmol/L 3.5-5.0 0358045242) CL (test code = 102 mmol/L 98-108 0660611581) CO2 TOTAL (test code = 25 mmol/L 23-31 4319057341) AGAP (test code = 6 2-16 6382361220) BUN (test code = 22 mg/dL 7-23 1619252215) GLUCOSE (test code = 97 mg/dL 70-110 3728885259) CREATININE (test code = 0.40 mg/dL 0.50-1.04 L 2380157469) TOTAL BILI (test code = 0.3 mg/dL 0.1-1.0 0025668781) CALCIUM (test code = 8.9 mg/dL 8.6-10.6 8899609275) T PROTEIN (test code = 7.7 g/dL 6.3-8.2 7473694259) ALBUMIN (test code = 4.0 g/dL 3.5-5.0 2055227131) ALK PHOS (test code = 104 U/L 34-122 7382647373) ALTv (test code = 15 U/L 5-35 1742-6) AST(SGOT) (test code = 22 U/L 13-40 9343138541) eGFR (test code = 170.4 mL/min/1.73m2 5638312696) HANNAH (test code = HANNAH) Association of [...] tests). Lab Interpretation Abnormal (test code = 06696-7) [facility] WITH [id number] 02:01:20 Test Item Value Reference Range Interpretation Comments WBC (test code = 6.17 See_Comment [Automated 6511-2) message] The sy stem which generated this result transmitted reference range : 4.30 - 11.10 10*3/?L. The reference range was not used to interpret this result as normal/abnormal . RBC (test code = 3.73 See_Comment L [Automated 794-8) message] The sy stem which generated this [...] RDW-SD (test code = 48.1 fL 39.0-49.9 63573-4) RDW-CV (test code = 14.7 % 12.0-15.5 788-0) PLT (test code = 272 See_Comment [Automated 091-3) message] The sy stem which generated this result transmitted reference range : 166 - 358 10*3/ ?L. The reference r kobi was not used to interpret this result as normal/abnormal . MPV (test code = 9.6 fL 9.5-12.9 93702-2) NRBC/100 WBC (test 0.0 See_Comment [Automat ed code = 0552763821) message] The system which generated this result transmitted reference range : 0.0 - 10.0 /100 WBCs. The refer ence range was not u sed to interpret th is result as normal/abnormal . NRBC x10^3 (test code See_Comment [Auto mated = 7298232237) message] The s ystem which generated this result transmitted reference range : 10*3/?L. The reference range was not used to interpret this result as normal/abnormal . GRAN MAT (NEUT) % 42.2 % (test code = 770-8) IMM GRAN % (test code 0.20 % = 4999598632) LYMPH % (test code = 38.2 % 736-9) MONO % (test code = 12.6 % 5905-5) EOS % (test code = 5.8 % 713-8) BASO % (test code = 1.0 % 706-2) GRAN MAT x10^3(ANC) 2.60 10*3/uL 1.88-7.09 (test code = 2951387515) IMM GRAN x10^3 (test 0.00-0.06 code = 4439339376) LYMPH x10^3 (test code 2.36 10*3/uL 1.32-3.29 = 731-0) MONO x10^3 (test code 0.78 10*3/uL 0.33-0.92 = 742-7) EOS x10^3 (test code = 0.36 10*3/uL 0.03-0.39 711-2) BASO x10^3 (test code 0.06 10*3/uL 0.01-0.07 = 704-7) Lab Interpretation Abnormal (test code = 62815-1) [facility]-PCR (HIGH RISK) 2020-08-19 00:00:00 Test Item Value Reference Range Interpretation Comments SARS-CoV-2 INTERPRETATION (test NEGATIVE code = 88359) SOURCE (test code = 55416) NOT SPECIFIED SARS-CoV-2 (COVID-19) by RT-PCR (HIGH RISK)2020-08-19 00:00:00 Test Item Value Reference Range Interpretation Comments SARS-CoV-2 INTERPRETATION (test NEGATIVE code = 64515) SOURCE (test code = 83256) NOT SPECIFIED PAP TEST, THINPREP, [id number] 00:00:00 Test Item Value Reference Range Interpretation Comments SOURCE: (test code = Cervical/Endocervical 8001) SLIDES: (test code = 1 8011) LMP: (test code = 8021) 06/2017 SPECIMEN ADEQUACY: (test (NOTE) code = 57560) INTERPRETATION: (test NILM/NO EPITH. code = 14709) ABNORMALITY;SEE BELOW DRY KILN LOADER: (test Malek code = 8101) [place], [place](ASCP) IAC LOCATION: (test code = (NOTE) 25370) CPT: (test code = 8140) (NOTE) PAP TEST, THINPREP, [id number] 00:00:00 Test Item Value Reference Range Interpretation Comments SOURCE: (test code = Cervical/Endocervical 8001) SLIDES: (test code = 1 8011) LMP: (test code = 8021) 06/2017 SPECIMEN ADEQUACY: (test (NOTE) code = 70596) INTERPRETATION: (test NILM/NO EPITH. code = 00731) ABNORMALITY;SEE BELOW DRY KILN LOADER: (test Malek code = 8101) [place], CT(ASCP) IAC LOCATION: (test code = (NOTE) 85546) CPT: (test code = 8140) (NOTE) HPV HIGH RISK WITH GENOTYPE, [id number] 00:00:00 Test Item Value Reference Range Interpretation Comments HPV HIGH RISK INTERP (test code = NEGATIVE 92727) HPV 16 (test code = 95131) NEGATIVE HPV 18 (test code = 19825) NEGATIVE HPV, HR, OTHER GENOTYPES (test code NEGATIVE = 18817) HPV HIGH RISK WITH GENOTYPE, [id number] 00:00:00 Test Item Value Reference Range Interpretation Comments HPV HIGH RISK INTERP (test code = NEGATIVE 80742) HPV 16 (test code = 76851) NEGATIVE HPV 18 (test code = 92002) NEGATIVE HPV, HR, OTHER GENOTYPES (test code NEGATIVE = 64199) CT HEAD WO [id number] 22:34:12Impression: 1. ?No acute intracranial process. 2. [...] the patient. Please correlate with history and physicalexamination.[facility] CERV[facility] SP[facility] 2 [id number] 22:29:40 No acute osseous abnormality. Preliminary Report [...] reviewed this study and agree with theabove report.[facility] WITH [id number] 21:46:00 Test Item Value Reference Range Interpretation Comments WBC (test code = See_Comment [Automated 7890-2) message] The sy stem which generated this [...] RDW-SD (test code = 45.1 fL 39-49.9 63390-6) RDW-CV (test code = 14.6 % 12-15.5 788-0) PLT (test code = See_Comment L [Automated 777-3) message] The sy stem which generated this result transmitted reference range : 166 - 358 10*3/ ?L. The reference r kobi was not used to interpret this result as normal/abnormal . MPV (test code = 9.0 fL 9.5-12.9 L 18151-3) NRBC/100 WBC (test See_Comment [Automat ed code = 1278968524) message] The system which generated this result transmitted reference range : 0.0 - 10.0 /100 WBCs. The refer ence range was not u sed to interpret th is result as normal/abnormal . NRBC x10^3 (test code <0.01 See_Comment [Auto mated = 7853186032) message] The s ystem which generated this result transmitted reference range : 10*3/?L. The reference range was not used to interpret this result as normal/abnormal . GRAN MAT (NEUT) % 51.3 % (test code = 770-8) IMM GRAN % (test code 0.40 % = 6386561427) LYMPH % (test code = 24.4 % 736-9) MONO % (test code = 23.1 % 5905-5) EOS % (test code = 0.4 % 713-8) BASO % (test code = 0.4 % 706-2) GRAN MAT x10^3(ANC) 2.48 10*3/uL 1.88-7.09 (test code = 6478839526) IMM GRAN x10^3 (test <0.03 0-0.06 code = 4221447100) LYMPH x10^3 (test code 1.18 10*3/uL 1.32-3.29 L = 731-0) MONO x10^3 (test code 1.12 10*3/uL 0.33-0.92 H = 742-7) EOS x10^3 (test code = <0.03 0.03-0.39 L 711-2) BASO x10^3 (test code <0.03 0.01-0.07 = 704-7) Lab Interpretation Abnormal (test code = 56689-7) [facility] 2 [id number] 03:28:03 No acute osseous abnormality. Preliminary Report [...] this study and agree withthe above report. [facility] Acid [id number] 08:03:22 Test Item Value Reference Range Interpretation Comments Valproic Acid Level (test code 57.6 ug/mL(g) 50.0-100.0 = Valproic Acid Level) Hemoglobin [id number] 09:36:00 Test Item Value Reference Range Interpretation Comments Hemoglobin A1c (test code 5.0 % 4.8-5.9 No n Diabetic = Hemoglobin A1c) 4.8-5.9%Di abetic <7.0% CT Shoulder w/o Contrast [id number] 16:49:13Patient: BHUMIKA JONES Date/Time01/09/2019 16:14 CDTReason for [...] Adam FSigned (Electronic Signature): 01/09/2019 4:49 pmRPR Nsycbcaokye0522-32-38 21:33:20 Test Item Value Reference Range Interpretation [...] Expiration Dt) XR Shoulder Complete 2+ Views [id number] 15:41:25Patient: BHUMIKA JONES Date/Time01/07/2019 15:25 CDTReason for [...] CSigned (Electronic Signature): 01/07/2019 3:41 pmThyroid Stimulating [id number] 03:07:04 Test Item Value Reference Range Interpretation Comments TSH (test code = TSH) 9.650 mIU/mL 0.270-4.200 H Lipid [id number] 03:07:03 Test Item Value Reference Range Interpretation [...] LDL/HDL Ratio=L DL Calc/HDL Chol HCG Qualitative [id number] 02:33:13 Test Item Value Reference Range Interpretation Comments HCG, Serum Qual (test code = HCG, Negative Serum Qual) Lot # (test code = Lot #) [id number] Expiration Dt (test code = 2020-04-23 N Expiration Dt) Neg Control (test code = Neg Negative Control) Pos Control (test code = Pos Positive Control) Internal QC (test code = Internal Acceptable QC) Drugs of Abuse Urine [id number] 18:58:11 Test Item Value Reference Range Interpretation [...] (test code = Cannabinoid Screen Ur) Alcohol [id number] 18:47:34 Test Item Value Reference Range Interpretation Comments Ethanol Level (test <0.00 g/dL 0.00-0.01 Intoxica isabel 0.080 g/dL code = Ethanol or more Level) Ethanol Inst (test <0 N code = Ethanol Inst) Comprehensive Metabolic [id number] 18:47:33 Test Item Value Reference Range Interpretation [...] A/G 1.0 ratio N Ratio) Comprehensive Metabolic [id number] 18:47:33 Test Item Value Reference Range Interpretation [...] National [employer] Foundation, http://nkdep.ni h.gov Comprehensive Metabolic [id number] 18:47:33 Test Item Value Reference Range Interpretation [...] ag e have not been validated by [facility] MDRD study and should be [...] ag e have not been validated by [facility] MDRD study and should be interpreted wit h caution. eGFR R esult Interpretation: eGFR > or = 60 is in the Normal RangeeGF R < 60 may mean kid betzaida diseaseeGFR < 1 5 may mean kidney failure Rang es recommended by the National Kidney Foundation, http://nkdep.ni h.gov Complete Blood Count with Ytaeavdioyfj0935-80-90 18:15:23 Test Item Value Reference Range Interpretation [...] code = IPF) 0 % N Automated Dwejqjgedhle4783-48-68 18:15:23 Test Item Value Reference Range Interpretation Comments Neutro Auto (test code = Neutro 42.1 % 36.0-70.0 Auto) Lymph Auto (test code = Lymph Auto) 40.0 % 12.0-44.0 Kidder Auto (test code = Kidder Auto) 12.2 % 0.0-11.0 H Eos, Auto (test code = Eos, Auto) 4.9 % 0.0-7.0 Basophil Auto (test code = Basophil 0.6 % 0.0-2.0 Auto) Neutro Absolute (test code = Neutro 2.2 x10 1.6-7.4 Absolute) Lymph Absolute (test code = Lymph 2.06 x10 .50-4.60 Absolute) Kidder Absolute (test code = Kidder .63 x10 .00-1.20 Absolute) Eos Absolute (test code = Eos 0.25 x10 0.00-0.74 Absolute) Baso Absolute (test code = Baso 0.03 x10 0.00-0.21 Absolute) IG [id number] 18:15:23 Test Item Value Reference Range Interpretation Comments IG (test code = IG) 0.2 % 0.0-5.0 IG Abs (test code = IG Abs) 0 x10 N VALPROIC [id number] 00:00:00 Test Item Value Reference Range Interpretation Comments VALPROIC ACID (test code = 3025) 69.8 UG/ML VALPROIC [id number] 00:00:00 Test Item Value Reference Range Interpretation Comments VALPROIC ACID (test code = 3025) 69.8 UG/ML URINE CULTURE, NO [id number] 00:00:00 Test Item Value Reference Range Interpretation Comments URINE CULTURE, NO SPECIMEN NUMBER: SENS (test code = 36410565 64506) URINE CULTURE, NO [id number] 00:00:00 Test Item Value Reference Range Interpretation Comments URINE CULTURE, NO SPECIMEN NUMBER: SENS (test code = 72453060 80245) IRON BINDING CAPACITY AND IRON AND % [id number] 00:00:00 Test Item Value Reference Range Interpretation Comments IRON, SERUM (test code = 2) 42 UG/DL UNSATURATED IBC (test code = 58865) 279 UG/DL CALC TOTAL IBC (test code = 7) 321 UG/DL CALC % IRON SAT (test code = 9) 13 % IRON BINDING CAPACITY AND IRON AND % [id number] 00:00:00 Test Item Value Reference Range Interpretation Comments IRON, SERUM (test code = 2222) 42 UG/DL UNSATURATED IBC (test code = 80690) 279 UG/DL CALC TOTAL IBC (test code = 2077) 321 UG/DL CALC % IRON SAT (test code = 9) 13 % [id number] 00:00:00 Test Item Value Reference Range Interpretation Comments FERRITIN (test code = 5) 15 NG/ML [id number] 00:00:00 Test Item Value Reference Range Interpretation Comments FERRITIN (test code = 2075) 15 NG/ML [id number] 00:00:00 Test Item Value Reference Range Interpretation Comments TRANSFERRIN (test code = 4936) 269 MG/DL [id number] 00:00:00 Test Item Value Reference Range Interpretation Comments TRANSFERRIN (test code = 4936) 269 MG/DL FOLIC [id number] 00:00:00 Test Item Value Reference Range Interpretation Comments FOLIC ACID (test code = 2695) 5.4 UG/L FOLIC [id number] 00:00:00 Test Item Value Reference Range Interpretation Comments FOLIC ACID (test code = 2695) 5.4 UG/L CULTURE, URINE [ADDED]2018-06-12 00:00:00 Test Item Value Reference Range Interpretation Comments CULTURE, URINE (test SPECIMEN NUMBER: code = 12142) [id number] CULTURE, URINE [ADDED]2018-06-12 00:00:00 Test Item Value Reference Range Interpretation Comments CULTURE, URINE (test SPECIMEN NUMBER: code = 31055) [id number] VALPROIC [id number] 00:00:00 Test Item Value Reference Range Interpretation Comments VALPROIC ACID (test code = 3025) 100.9 UG/ML VALPROIC [id number] 00:00:00 Test Item Value Reference Range Interpretation Comments VALPROIC ACID (test code = 3025) 100.9 UG/ML CBC W/AUTO [id number] 00:00:00 Test Item Value Reference Range Interpretation [...] code = 1015) 184 K/UL CBC W/AUTO [id number] 00:00:00 Test Item Value Reference Range Interpretation [...] code = 1015) 184 K/UL CBC W/AUTO [id number] 00:00:00 Test Item Value Reference Range Interpretation [...] code = 1015) 184 K/UL COMPREHENSIVE METABOLIC [id number] 00:00:00 Test Item Value Reference Range Interpretation Comments GLUCOSE (test code = 2217) 86 MG/DL BUN (test code = 2208) 16 MG/DL CREATININE (test code = 2214) 0.45 MG/DL eGFR AMER. (test code 141 ML/MIN/1.73 = 65082) eGFR NON- AMER. (test 122 ML/MIN/1.73 code = 07802) CALC BUN/CREAT (test code = 36 RATIO [...] CALC GLOBULIN (test code = 3.1 G/DL 224) CALC A/G RATIO (test code = 1.1 RATIO 2234) BILIRUBIN, TOTAL (test code = <0.2 MG/DL 2206) ALKALINE PHOSPHATASE (test 76 U/L code = 2204) AST (test code = 2218) 24 U/L ALT (test code = 2219) 17 U/L COMPREHENSIVE METABOLIC [id number] 00:00:00 Test Item Value Reference Range Interpretation Comments GLUCOSE (test code = 2217) 86 MG/DL BUN (test code = 2208) 16 MG/DL CREATININE (test code = 2214) 0.45 MG/DL eGFR AMER. (test code 141 ML/MIN/1.73 = 10254) eGFR NON- AMER. (test 122 ML/MIN/1.73 code = 75687) CALC BUN/CREAT (test code = 36 RATIO [...] = 2219) 17 U/L PAP TEST, THINPREP, [id number] 00:00:00 Test Item Value Reference Range Interpretation Comments SOURCE: (test code = Cervical/Endocervical 8001) SLIDES: (test code = 1 8011) LMP: (test code = 03/2017 8021) SPECIMEN ADEQUACY: (NOTE) (test code = 99877) INTERPRETATION: (test NO EPITHELIAL code = 27858) ABNORMALITY SEE BELOW DRY KILN LOADER: Santi Elizondo, (test code = 8101) CT(ASCP)IAC LOCATION: (test code (NOTE) = 52399) CPT: (test code = (NOTE) 8140) PAP TEST, THINPREP, [id number] 00:00:00 Test Item Value Reference Range Interpretation Comments SOURCE: (test code = Cervical/Endocervical 8001) SLIDES: (test code = 1 8011) LMP: (test code = 03/2017 8021) SPECIMEN ADEQUACY: (NOTE) (test code = 60096) INTERPRETATION: (test NO EPITHELIAL code = 94573) ABNORMALITY SEE BELOW DRY KILN LOADER: Santi Elizondo, (test code = 8101) CT(ASCP)IAC LOCATION: (test code (NOTE) = 97462) CPT: (test code = (NOTE) 8140) HPV HIGH RISK WITH GENOTYPE, [id number] 00:00:00 Test Item Value Reference Range Interpretation Comments HPV HIGH RISK INTERP (test code = NEGATIVE 98418) HPV 16 (test code = 46438) NEGATIVE HPV 18 (test code = 92143) NEGATIVE HPV, HR, OTHER GENOTYPES (test code NEGATIVE = 78872) HPV HIGH RISK WITH GENOTYPE, [id number] 00:00:00 Test Item Value Reference Range Interpretation Comments HPV HIGH RISK INTERP (test code = NEGATIVE 91492) HPV 16 (test code = 66019) NEGATIVE HPV 18 (test code = 11804) NEGATIVE HPV, HR, OTHER GENOTYPES (test code NEGATIVE = 68832) GC AND CHLAMYDIA AMPLIFIED, [id number] 00:00:00 Test Item Value Reference Range Interpretation Comments GONORRHEA, TMA (test code = 94807) NEGATIVE CHLAMYDIA, TMA (test code = 72714) NEGATIVE HIV AB/AG COMBO RFLX [id number] 00:00:00 Test Item Value Reference Range Interpretation Comments HIV 1/2 4TH GEN, RFLX CONF (test NON-REACTIVE code = 3514) GC AND CHLAMYDIA AMPLIFIED, [id number] 00:00:00 Test Item Value Reference Range Interpretation Comments GONORRHEA, TMA (test code = 94389) NEGATIVE CHLAMYDIA, TMA (test code = 26402) NEGATIVE HIV AB/AG COMBO RFLX [id number] 00:00:00 Test Item Value Reference Range Interpretation Comments HIV 1/2 4TH GEN, RFLX CONF (test NON-REACTIVE code = 3514) COMPREHENSIVE METABOLIC [id number] 00:00:00 Test Item Value Reference Range Interpretation Comments GLUCOSE (test code = 2217) 90 MG/DL BUN (test code = 2208) 21 MG/DL CREATININE (test code = 2214) 0.42 MG/DL eGFR AMER. (test code 145 ML/MIN/1.73 = 49936) eGFR NON- AMER. (test 126 ML/MIN/1.73 code = 86621) CALC BUN/CREAT (test code = 50 RATIO [...] code = 2219) <5 U/L COMPREHENSIVE METABOLIC [id number] 00:00:00 Test Item Value Reference Range Interpretation Comments GLUCOSE (test code = 2217) 90 MG/DL BUN (test code = 2208) 21 MG/DL CREATININE (test code = 2214) 0.42 MG/DL eGFR AMER. (test code 145 ML/MIN/1.73 = 79593) eGFR NON- AMER. (test 126 ML/MIN/1.73 code = 41869) CALC BUN/CREAT (test code = 50 RATIO [...] (test code = 2219) <5 U/L LIPID [id number] 00:00:00 Test Item Value Reference Range Interpretation Comments CHOLESTEROL (test code = 2210) 186 MG/DL TRIGLYCERIDES (test code = 2232) 131 MG/DL HDL CHOLESTEROL (test code = 2220) 67 MG/DL CALC LDL CHOL (test code = 2237) 93 MG/DL RISK RATIO LDL/HDL (test code = 1.39 RATIO 2238) LIPID [id number] 00:00:00 Test Item Value Reference Range Interpretation Comments CHOLESTEROL (test code = 2210) 186 MG/DL TRIGLYCERIDES (test code = 2232) 131 MG/DL HDL CHOLESTEROL (test code = 2220) 67 MG/DL CALC LDL CHOL (test code = 2237) 93 MG/DL RISK RATIO LDL/HDL (test code = 1.39 RATIO 2238) CBC W/AUTO [id number] 00:00:00 Test Item Value Reference Range Interpretation [...] code = 1015) 152 K/UL CBC W/AUTO [id number] 00:00:00 Test Item Value Reference Range Interpretation [...] code = 1015) 152 K/UL CBC W/AUTO [id number] 00:00:00 Test Item Value Reference Range Interpretation [...] (test code = 1015) 152 K/UL HEMOGLOBIN [id number] 00:00:00 Test Item Value Reference Range Interpretation Comments HEMOGLOBIN A1c (test code = 98621) 5.2 % HEMOGLOBIN [id number] 00:00:00 Test Item Value Reference Range Interpretation Comments HEMOGLOBIN A1c (test code = 79452) 5.2 % HEMOGLOBIN [id number] 00:00:00 Test Item Value Reference Range Interpretation Comments HEMOGLOBIN A1c (test code = 12169) 5.2 % [id number] 00:00:00 Test Item Value Reference Range Interpretation Comments TSH (test code = 2821) 2.020 UIU/ML [id number] 00:00:00 Test Item Value Reference Range Interpretation Comments TSH (test code = 2821) 2.020 UIU/ML [id number] 00:00:00 Test Item Value Reference Range Interpretation Comments TSH (test code = 2821) 2.020 UIU/ML"
--- NOTE | 2023-05-10 01:30 | EDPHYS ---
Physician Documentation [facility] Name: Sidra Hodges Age: 48 yrs Sex: Female : 1975 Arrival Date: 05/10/2023 Time: 00:27 Bed IW10 Private MD: ED Physician Sebastian Silva HPI: 05/10 00:33 This 48 yrs old Female presents to ER via Unassigned with complaints of sp4 Diffuse body pain and chest pain . 01:30 History is difficult to collect secondary to underlying psychiatric illness. Patient is sp4 well-known to me from multiple prior visits for multiple other complaints including generalized pains. 01:31 PMH - Allergies: CARBAMAZEPINE DERIVATIVES; Depakote; Tegretol PMHx: 12:36 ADD/ADHD; sp4 Anxiety; Bipolar disorder; Chronic pain; hemorrhoids; Seizures PSHx: R LEG SX;. 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 - Social history:: Smoking status: Patient denies any tobacco usage or history of. Patient/guardian denies using tobacco products, The patient lives with mother, learning impairment noted. - Family history:: not pertinent. - Code Status:: Full code. ROS: 01:31 Constitutional: Negative for fever, chills, and weight loss, positive for diffuse body sp4 aches 01:31 All other systems are negative, Exam: 01:31 Constitutional: This is a well developed, well nourished patient who is awake, alert, sp4 and in no acute distress. Head/Face: Normocephalic, atraumatic. Eyes: Pupils equal round and reactive to light, extra-ocular motions intact. Lids and lashes normal. Conjunctiva and sclera are not injected. Cornea within normal limits. Periorbital areas with no swelling, redness, or edema. ENT: Nares patent. No nasal discharge, no septal abnormalities noted. Tympanic membranes are normal and external auditory canals are clear. Oropharynx with no redness, swelling, or masses, exudates, or evidence of obstruction, uvula midline. Mucous membranes moist. Neck: Trachea midline, no thyromegaly or masses palpated, and no cervical lymphadenopathy. Supple, full range of motion without nuchal rigidity, or vertebral point tenderness. Chest/axilla: Normal chest wall appearance and motion. Nontender with no deformity. No lesions are appreciated. Cardiovascular: Regular rate and rhythm with a normal S1 and S2. No gallops, murmurs, or rubs. Normal PMI, no JVD. No pulse deficits. Respiratory: Lungs have equal breath sounds bilaterally, clear to auscultation and percussion. No rales, rhonchi or wheezes noted. No increased work of breathing, no retractions or nasal flaring. Abdomen/GI: Soft, non-tender, with normal bowel sounds. No distension or tympany. No guarding or rebound. No evidence of tenderness throughout. Back: No spinal tenderness. No costovertebral tenderness. Skin: Warm, dry with normal turgor. Normal color with no rashes, no lesions, and no evidence of cellulitis. MS/ Extremity: Pulses equal, no cyanosis. Neurovascular intact. Full, normal range of motion. Neuro: Awake and alert, GCS 15, oriented to person, place, Cranial nerves II-XII grossly intact. Motor strength 5/5 in all extremities. Sensory grossly intact. Psych: Awake, alert, with orientation to person, Behavior, mood, and affect are within normal limits 01:31 ECG was reviewed by the Attending Physician. No RA is normal sinus rhythm at the rate of 68. Muscle tremor artifact, prolonged QT, no ST elevation or depression EKG time 0 124 Vital Signs: 00:20 BP 135 / 120 RA; Pulse 77; Resp 20; Temp 97.9(O); Pulse Ox 100% on R/A; Weight 74.84 la4 kg; Height 4 ft. 11 in. ; Pain 5/10; 00:20 BP 135 / 120; Pulse 77; Resp 20; Temp 97.9; Pulse Ox 100% ; la4 00:20 Body Mass Index 33.33 (74.84 kg, 149.86 cm) la4 00:20 Pain Scale: Adult la4 00:20 c/o generalized bodyaches. la4 [place] Coma Score: 01:20 Eye Response: spontaneous(4). Motor Response: obeys commands(6). Verbal Response: la4 oriented(5). Total: 15. MDM: 00:36 Patient medically screened. sp4 01:33 Data reviewed: vital signs, nurses notes. sp4 05/10 00:33 Order name: EKG; Complete Time: 00:33 sp4 05/10 00:33 Order name: EKG - Nurse/Tech; Complete Time: :29 sp4 EC:31 Rate is 68 beats/min. Rhythm is regular, Normal Sinus Rhythm. QRS [place] is Normal. LA sp4 interval is normal. QRS interval is normal. QT interval is prolonged. No Q waves. T waves are Normal. No ST changes noted. Clinical impression: No evidence of ischemia. Interpreted by me. Reviewed by me. Administered Medications: 01:37 Drug: Acetaminophen PO 1000 mg PO once Route: PO; la4 01:37 Drug: Ibuprofen PO 800 mg PO once Route: PO; la4 Disposition Summary: 05/10/23 01:29 Discharge Ordered Notes: Location: Home sp4 Problem: new sp4 Symptoms: have improved sp4 Condition: Stable sp4 Diagnosis - Intercostal pain sp4 - Generalized body aches, emotional upset, noncardiac chest pain sp4 Followup: sp4 - With: Private Physician - When: 7 - 10 days - Reason: Recheck today's complaints Discharge Instructions: - Discharge Summary Sheet sp4 - Pleurodynia sp4 Forms: - Patient Portal Instructions sp4 Signatures: Sebastian Silva MD MD sp4 Bridgett Ward RN RN la4
[2023-05-10] MEDS ORDERED: ACETAMINOPHEN 500 MG TAB ONE (01:43)
[2023-05-10] MEDS ORDERED: IBUPROFEN 400 MG TAB ONE (01:43)
--- NOTE | 2023-05-10 06:44 | ER ---
Nurse's Notes [facility] Name: Sidra Hodges Age: 48 yrs Sex: Female : 1975 Arrival Date: 05/10/2023 Time: 00:27 Bed IW10 Private MD: Diagnosis: Intercostal pain;Generalized body aches, emotional upset, noncardiac chest pain Presentation: 05/10 00:20 Chief complaint: EMS states: Called multiple times throught the day for c/o generalized la4 body aches. 00:20 Coronavirus screen: Vaccine status: Patient reports being unvaccinated. pt not la4 answering questions appropriately. Sometimes states no but then will smile and nod yes. Pt is unaccompanied and reported to live alone. At this time, unable to obtain information related to travel outside the [place] Ebola Screen: Patient denies travel to an Ebola-affected area in the 21 days before illness onset. No symptoms or risks identified at this time. Initial Sepsis Screen: Does the patient meet any 2 criteria? No. Patient's initial sepsis screen is negative. Does the patient have a suspected source of infection? No. Patient's initial sepsis screen is negative. Risk Assessment: Do you want to hurt yourself or someone else? Patient reports no desire to harm self or others. Onset of symptoms was May 09, 2023. Care prior to arrival: None. EMS states pt met them outside on the porch. 00:20 Method Of Arrival: EMS: [facility] la4 00:20 Acuity: CARMITA 4 la4 Triage Assessment: 00:20 General: Appears in no apparent distress. comfortable, Behavior is calm, cooperative, la4 appropriate for age, Smells of cat urine. Pain: Complains of pain in back of head, back of neck, back of left arm, back of right arm, posterior chest, buttocks, left hand, right hand, back of left leg, back of right leg, left heel, right heel and back Quality of pain is described as aching. Neuro: No deficits noted. [place] Agitation-Sedation Scale (RASS): 0 - Alert and Calm Level of Consciousness is awake, alert, obeys commands, Oriented to person, place, time. Cardiovascular: No deficits noted. Heart tones S1 S2 Capillary refill < 3 seconds is brisk. Respiratory: No deficits noted. GI: No deficits noted. Abdomen is round non-distended, Bowel sounds present X 4 quads. Abd is soft and non tender X 4 quads. : No deficits noted. No signs and/or symptoms were reported regarding the genitourinary system. Musculoskeletal: No deficits noted. Capillary refill < 3 seconds, is brisk. 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 - Social history:: Smoking status: Patient denies any tobacco usage or history of. Patient/guardian denies using tobacco products, The patient lives with mother, learning impairment noted. - Family history:: not pertinent. - Code Status:: Full code. Screenin:20 [facility] ED Fall Risk Assessment (Adult) History of falling in the last 3 months, la4 including since admission No falls in past 3 months (0 pts) Confusion or Disorientation No (0 pts) Intoxicated or Sedated No (0 pts) Impaired Gait Yes (1 pt) Mobility Assist Device Used No (0 pt) Altered Elimination No (0 pt) Score/Fall Risk Level 0 - 2 = Low Risk Maintained a safe environment, Provided non-skid footwear. Abuse screen: Denies threats or abuse. Denies injuries from another. Nutritional screening: No deficits noted. Tuberculosis screening: No symptoms or risk factors identified. Assessment: 02:23 Reassessment: No changes from previously documented assessment. Patient is alert, la4 oriented x 3, equal unlabored respirations, skin warm/dry/pink. Patient states feeling better. Patient states symptoms have improved. General: Appears in no apparent distress. comfortable, Behavior is sleep. Smells of cat urine. Neuro: [place] Agitation-Sedation Scale (RASS): 0 - Alert and Calm. 03:00 Reassessment: DC ON HOLD FOR TRANSPORT. bp 06:43 Reassessment: PT DC AMBULATORY. bp Vital Signs: 00:20 BP 135 / 120 RA; Pulse 77; Resp 20; Temp 97.9(O); Pulse Ox 100% on R/A; Weight 74.84 la4 kg; Height 4 ft. 11 in. ; Pain 5/10; 00:20 BP 135 / 120; Pulse 77; Resp 20; Temp 97.9; Pulse Ox 100% ; la4 00:20 Body Mass Index 33.33 (74.84 kg, 149.86 cm) la4 00:20 Pain Scale: Adult la4 00:20 c/o generalized bodyaches. la4 [place] Coma Score: 01:20 Eye Response: spontaneous(4). Motor Response: obeys commands(6). Verbal Response: la4 oriented(5). Total: 15. ED Course: 00:20 Arm band placed on right wrist. Patient placed in an exam room, on a stretcher. la4 00:31 Patient arrived in ED. bp 00:33 Sebastian Silva MD is Attending Physician. sp4 01:20 Patient has correct armband on for positive identification. Placed in gown. Bed in low la4 position. Call light in reach. Side rails up X2. Provided Education on: plan of care. 01:20 No provider procedures requiring assistance completed. la4 01:27 Bridgett Ward, RN is Primary Nurse. la4 02:00 Triage completed. la4 06:43 Patient did not have IV access during this emergency room visit. bp Administered Medications: 01:37 Drug: Acetaminophen PO 1000 mg PO once Route: PO; la4 01:37 Drug: Ibuprofen PO 800 mg PO once Route: PO; la4 Medication: 01:20 VIS not applicable for this client. la4 Outcome: 01:29 Discharge ordered by . sp4 06:43 Discharged to home ambulatory, bp 06:43 Condition: stable 06:43 Discharge instructions given to patient, Instructed on discharge instructions, follow up and referral plans. Demonstrated understanding of instructions, follow-up care, 06:43 Patient left the ED. bp Signatures: Jose Jama RN RN Sebastian Doss MD MD sp4 Bridgett Ward RN RN laIvette
--- NOTE | 2023-05-10 14:23 | EKG ---
Test Date: 2023-05-10 Test Time: 01:24:39 Oral And Maxillofacial Pathologist: TEN MEASUREMENT RESULTS: Intervals: Rate: 68 ME: 158 QRSD: 82 QT: 578 QTc: 614 [place]: P: 81 ME: 158 QRS: 68 T: 49 INTERPRETIVE STATEMENTS: Normal sinus rhythm Nonspecific ST and T wave abnormality Prolonged QT Abnormal ECG Compared to ECG 02/27/2023 13:57:49 ST (T wave) deviation now present Prolonged QT interval now present T-wave abnormality no longer present Electronically Signed On 05-10-23 14:21:56 OENOLOGIST by Magdy Avelar
== END 2023-05-10 06:43 | disposition home or self-care (01) ==
LOC: ER 00:27
DX: R07.82 Intercostal pain (principal); M79.10 Myalgia, unspecified site; R07.89 Other chest pain; F43.0 Acute stress reaction
CPT/HCPCS: 93005; 99283

== ENCOUNTER 2023-06-02 12:39 | Emergency (ER) | payer SELFPAY ==
--- OUTSIDE RECORDS SUMMARY | 2023-06-02 12:49 | XMS REPORT | Continuity of Care Document ---
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 [facility] OXcarbazepi ne (TRILEPTAL) 300 mg tablet 10-21 19:58: 10 Yes Take by mouth. [facility] divalproex ER (DEPAKOTE ER) 500 mg 24 hr tablet 10-21 19:58: 10 Yes 500mg Take 500 mg by mouth every 24 (twenty-fo ur) hours. [facility] OXcarbazepi ne (TRILEPTAL) 300 mg tablet 10-21 19:58: 10 Yes Take by mouth. [facility] (DE[facility]KOTE ER) 500 mg 24 hr tablet 10-21 19:58: 10 Yes 500mg Take 500 mg by mouth every 24 (twenty-fo ur) hours. [facility] OXcarbazepi ne (TRILEPTAL) 300 mg tablet 10-21 19:58: 10 Yes Take by mouth. [facility] (DEPAKOTE ER) 500 mg 24 hr tablet 10-21 19:58: 10 Yes 500mg Take 500 mg by mouth every 24 (twenty-fo ur) hours. [facility] OXcarbazepi ne (TRILEPTAL) 300 mg tablet 10-21 19:58: 10 Yes Take by mouth. [facility] divalproex ER (DEPAKOTE ER) 500 mg 24 hr tablet 10-21 19:58: 10 Yes 500mg Take 500 mg by mouth every 24 (twenty-fo ur) hours. [facility] OXcarbazepi ne (TRILEPTAL) 300 mg tablet 10-21 19:58: 10 Yes Take by mouth. [facility] divalproex ER (DEPAKOTE ER) 500 mg 24 hr tablet 10-21 19:58: 10 Yes 500mg Take 500 mg by mouth every 24 (twenty-fo ur) hours. [facility] OXcarbazepi ne (TRILEPTAL) 300 mg tablet 10-21 19:58: 10 Yes Take by mouth. [facility] divalproex ER (DEPAKOTE ER) 500 mg 24 hr tablet 10-21 19:58: 10 Yes 500mg Take 500 mg by mouth every 24 (twenty-fo ur) hours. [facility] OXcarbazepi ne (TRILEPTAL) 300 mg tablet 10-21 19:58: 10 Yes Take by mouth. [facility] divalproex ER (DEPAKOTE ER) 500 mg 24 hr tablet 10-21 19:58: 10 Yes 500mg Take 500 mg by mouth every 24 (twenty-fo ur) hours. [facility] OXcarbazepi ne (TRILEPTAL) 300 mg tablet 10-21 19:58: 10 Yes Take by mouth. [facility] naproxen (NAPROSYN) 500 mg tablet 10-21 00:00: 00 Yes 500mg Take 1 tablet by mouth 2 (two) times daily with meals. [facility] naproxen (NAPROSYN) 500 mg tablet 10-21 00:00: 00 Yes 500mg Take 1 tablet by mouth 2 (two) times daily with meals. [facility] naproxen (NAPROSYN) 500 mg tablet 10-21 00:00: 00 Yes 500mg Take 1 tablet by mouth 2 (two) times daily with meals. [facility] naproxen (NAPROSYN) 500 mg tablet 10-21 00:00: 00 Yes 500mg Take 1 tablet by mouth 2 (two) times daily with meals. [facility] naproxen (NAPROSYN) 500 mg tablet 10-21 00:00: 00 Yes 500mg Take 1 tablet by mouth 2 (two) times daily with meals. [facility] naproxen (NAPROSYN) 500 mg tablet 10-21 00:00: 00 Yes 500mg Take 1 tablet by mouth 2 (two) times daily with meals. [facility] naproxen (NAPROSYN) 500 mg tablet 10-21 00:00: 00 Yes 500mg Take 1 tablet by mouth 2 (two) times daily with meals. [facility] naproxen (NAPROSYN) 500 mg tablet 10-21 00:00: 00 Yes 500mg Take 1 tablet by mouth 2 (two) times daily with meals. [facility] naproxen (NAPROSYN) 500 mg tablet 10-21 00:00: 00 Yes 500mg Take 1 tablet by mouth 2 (two) times daily with meals. [facility] naproxen (NAPROSYN) 500 mg tablet 10-21 00:00: 00 Yes 500mg Take 1 tablet by mouth 2 (two) times daily with meals. [facility] naproxen (NAPROSYN) 500 mg tablet 10-21 00:00: 00 Yes 500mg Take 1 tablet by mouth 2 (two) times daily with meals. [facility] naproxen (NAPROSYN) 500 mg tablet 10-21 00:00: 00 Yes 500mg Take 1 tablet by mouth 2 (two) times daily with meals. [facility] naproxen (NAPROSYN) 500 mg tablet 10-21 00:00: 00 Yes 500mg Take 1 tablet by mouth 2 (two) times daily with meals. [facility] naproxen (NAPROSYN) 500 mg tablet 10-21 00:00: 00 Yes 500mg Take 1 tablet by mouth 2 (two) times daily with meals. [facility] naproxen (NAPROSYN) 500 mg tablet 10-21 00:00: 00 Yes 500mg Take 1 tablet by mouth 2 (two) times daily with meals. [facility] naproxen (NAPROSYN) 500 mg tablet 10-21 00:00: 00 Yes 500mg Take 1 tablet by mouth 2 (two) times daily with meals. [facility] naproxen (NAPROSYN) 500 mg tablet 10-21 00:00: 00 Yes 500mg Take 1 tablet by mouth 2 (two) times daily with meals. [facility] naproxen (NAPROSYN) 500 mg tablet 10-21 00:00: 00 Yes 500mg Take 1 tablet by mouth 2 (two) times daily with meals. [facility] nystatin-tr iamcinolone 100,000 unit/g-0.1 % topical cream 09-26 00:00: 00 No 1unit/g -% Anusol-HC 25 mg rectal suppository 09-26 00:00: 00 No 1mg Stool Softener 100 mg capsule 09-26 00:00: 00 No 1mg sulfamethox azole 800 mg-trimetho prim 160 mg tablet 09-24 00:00: 00 No 1mg prednisone 20 mg tablet 09-17 00:00: 00 No 2mg ibuprofen 800 mg tablet 09-17 00:00: 00 No 1mg cyclobenzap rine 10 mg tablet 09-17 00:00: 00 No 1mg cyclobenzap rine 10 mg tablet 09-03 00:00: 00 No 1mg ibuprofen 800 mg tablet 09-03 00:00: 00 No 1mg prednisone 20 mg tablet 09-03 00:00: 00 No 2mg ibuprofen 600 mg tablet 02-06 00:00: 00 Yes 600mg Take 1 tablet by mouth every 8 (eight) hours as needed for Pain (scale 4-6). [facility] ibuprofen 600 mg tablet 02-06 00:00: 00 Yes 600mg Take 1 tablet by mouth every 8 (eight) hours as needed for Pain (scale 4-6). [facility] ibuprofen 600 mg tablet 02-06 00:00: 00 Yes 600mg Take 1 tablet by mouth every 8 (eight) hours as needed for Pain (scale 4-6). [facility] ibuprofen 600 mg tablet 02-06 00:00: 00 Yes 600mg Take 1 tablet by mouth every 8 (eight) hours as needed for Pain (scale 4-6). [facility] ibuprofen 600 mg tablet 02-06 00:00: 00 Yes 600mg Take 1 tablet by mouth every 8 (eight) hours as needed for Pain (scale 4-6). [facility] ibuprofen 600 mg tablet 02-06 00:00: 00 Yes 600mg Take 1 tablet by mouth every 8 (eight) hours as needed for Pain (scale 4-6). [facility] ibuprofen 600 mg tablet 02-06 00:00: 00 Yes 600mg Take 1 tablet by mouth every 8 (eight) hours as needed for Pain (scale 4-6). [facility] ibuprofen 600 mg tablet 02-06 00:00: 00 Yes 600mg Take 1 tablet by mouth every 8 (eight) hours as needed for Pain (scale 4-6). [facility] ibuprofen 600 mg tablet 2017-0 8-16 00:00: 00 05-05 00:00 :00 No 600mg Take 1 tablet by mouth every 8 (eight) hours as needed for Pain (scale 4-6). [facility] hydrocortis one 2.5 % rectal cream 0 710 00:00: 00 Yes Insert into rectum 2 (two) times daily. [facility] hydrocortis one 2.5 % rectal cream 20170 710 00:00: 00 Yes Insert into rectum 2 (two) times daily. [facility] hydrocortis one 2.5 % rectal cream 20170 710 00:00: 00 Yes Insert into rectum 2 (two) times daily. [facility] hydrocortis one 2.5 % rectal cream 0 710 00:00: 00 Yes Insert into rectum 2 (two) times daily. [facility] hydrocortis one 2.5 % rectal cream 0 710 00:00: 00 Yes Insert into rectum 2 (two) times daily. [facility] of [facility] hydrocortis one 2.5 % rectal cream 0 710 00:00: 00 Yes Insert into rectum 2 (two) times daily. [facility] of [facility] hydrocortis one 2.5 % rectal cream 0 710 00:00: 00 Yes Insert into rectum 2 (two) times daily. [facility] hydrocortis one 2.5 % rectal cream 0 710 00:00: 00 Yes Insert into rectum 2 (two) times daily. [facility] of [facility] hydrocortis one 2.5 % rectal cream 20170 710 00:00: 00 Yes Insert into rectum 2 (two) times daily. [facility] hydrocortis one 2.5 % rectal cream 20170 7-10 00:00: 00 Yes Insert into rectum 2 (two) times daily. [facility] hydrocortis one 2.5 % rectal cream 2016-0 7-10 00:00: 00 Yes Insert into rectum 2 (two) times daily. [facility] hydrocortis one 2.5 % rectal cream 0 710 00:00: 00 Yes Insert into rectum 2 (two) times daily. [facility] hydro[facility] one 2.5 % rectal cream 12-31 00:00: 00 Yes Insert into rectum 2 (two) times daily. [facility] hydrocortis one 2.5 % rectal cream 12-31 00:00: 00 Yes Insert into rectum 2 (two) times daily. [facility] hydrocortis one 2.5 % rectal cream 12-31 00:00: 00 Yes Insert into rectum 2 (two) times daily. [facility] hydrocortis one 2.5 % rectal cream 12-31 00:00: 00 Yes Insert into rectum 2 (two) times daily. [facility] hydrocortis one 2.5 % rectal cream 12-31 00:00: 00 Yes Insert into rectum 2 (two) times daily. [facility] hydrocortis one 2.5 % rectal cream 12-31 00:00: 00 Yes Insert into rectum 2 (two) times daily. [facility] hydrocortis one (ANUSOL-HC) 25 mg suppository 07-23 00:00: 00 Yes 25mg Insert 1 Suppositor y into rectum 2 (two) times daily. [facility] hydrocortis one (ANUSOL-HC) 25 mg suppository 07-23 00:00: 00 Yes 25mg Insert 1 Suppositor y into rectum 2 (two) times daily. [facility] hydrocortis one (ANUSOL-HC) 25 mg suppository 07-23 00:00: 00 Yes 25mg Insert 1 Suppositor y into rectum 2 (two) times daily. [facility] hydrocortis one (ANUSOL-HC) 25 mg suppository 07-23 00:00: 00 Yes 25mg Insert 1 Suppositor y into rectum 2 (two) times daily. [facility] hydrocortis one (ANUSOL-HC) 25 mg suppository 07-23 00:00: 00 Yes 25mg Insert 1 Suppositor y into rectum 2 (two) times daily. [facility] hydrocortis one (ANUSOL-HC) 25 mg suppository 07-23 00:00: 00 Yes 25mg Insert 1 Suppositor y into rectum 2 (two) times daily. [facility] hydrocortis one (ANUSOL-HC) 25 mg suppository 07-23 00:00: 00 Yes 25mg Insert 1 Suppositor y into rectum 2 (two) times daily. [facility] hydrocortis one (ANUSOL-HC) 25 mg suppository 07-23 00:00: 00 Yes 25mg Insert 1 Suppositor y into rectum 2 (two) times daily. [facility] hydrocortis one (ANUSOL-HC) 25 mg suppository 07-23 00:00: 00 Yes 25mg Insert 1 Suppositor y into rectum 2 (two) times daily. [facility] hydrocortis one (ANUSOL-HC) 25 mg suppository 07-23 00:00: 00 Yes 25mg Insert 1 Suppositor y into rectum 2 (two) times daily. [facility] hydrocortis one (ANUSOL-HC) 25 mg suppository 07-23 00:00: 00 Yes 25mg Insert 1 Suppositor y into rectum 2 (two) times daily. [facility] hydrocortis one (ANUSOL-HC) 25 mg suppository 07-23 00:00: 00 Yes 25mg Insert 1 Suppositor y into rectum 2 (two) times daily. [facility] hydrocortis one (ANUSOL-HC) 25 mg suppository 07-23 00:00: 00 Yes 25mg Insert 1 Suppositor y into rectum 2 (two) times daily. [facility] hydrocortis one (ANUSOL-HC) 25 mg suppository 07-23 00:00: 00 Yes 25mg Insert 1 Suppositor y into rectum 2 (two) times daily. [facility] hydrocortis one (ANUSOL-HC) 25 mg suppository 07-23 00:00: 00 Yes 25mg Insert 1 Suppositor y into rectum 2 (two) times daily. [facility] hydrocortis one (ANUSOL-HC) 25 mg suppository 07-23 00:00: 00 Yes 25mg Insert 1 Suppositor y into rectum 2 (two) times daily. [facility] hydrocortis one (ANUSOL-HC) 25 mg suppository 07-23 00:00: 00 Yes 25mg Insert 1 Suppositor y into rectum 2 (two) times daily. [facility] hydrocortis one (ANUSOL-HC) 25 mg suppository 07-23 00:00: 00 Yes 25mg Insert 1 Suppositor y into rectum 2 (two) times daily. [facility] Trileptal 300 mg tablet 01-30 00:00: 00 No 2mg Depakote 500 mg tablet,nette yed release 01-30 00:00: 00 No 1mg Abilify 2 mg tablet 01-30 00:00: 00 No 2mg Anusol-HC 25 mg rectal suppository 01-30 00:00: 00 No 1mg Stool Softener 100 mg capsule 01-30 00:00: 00 No 1mg pantoprazol e 20 mg tablet,nette yed release 08-25 00:00: 00 No 1mg Vital Signs Vital Name Observation Time Observation Value Comments S ource Height 2022-11-04 14:04:00 149.86 CM Weight 2022-11-04 14:04:00 73.02 KG Systolic blood pressure 2022-09-24 17:32:00 130 mm[Hg] [facility] Diastolic blood pressure 2022-09-24 17:32:00 85 mm[Hg] [facility] Heart rate 2022-09-24 17:32:00 64 /min [facility] Body temperature 2022-09-24 17:32:00 36.83 [facility] Respiratory rate 2022-09-24 17:32:00 18 /min [facility] Body weight 2022-09-24 17:32:00 74.844 kg [facility] BMI 2022-09-24 17:32:00 33.33 kg/m2 [facility] Oxygen saturation in Arterial blood by Pulse oximetry 2022-09-24 17:32:00 99 /min [facility] Systolic blood pressure 2022-09-10 23:55:00 111 mm[Hg] [facility] Diastolic blood pressure 2022-09-10 23:55:00 84 mm[Hg] [facility] Heart rate 2022-09-10 23:55:00 105 /min [facility] Body temperature 2022-09-10 23:55:00 37.33 [facility] Respiratory rate 2022-09-10 23:55:00 19 /min [facility] Systolic blood pressure 2022-09-10 01:44:00 126 mm[Hg] [facility] Diastolic blood pressure 2022-09-10 01:44:00 81 mm[Hg] [facility] Heart rate 2022-09-10 01:44:00 78 /min [facility] Body temperature 2022-09-10 01:44:00 36.56 [facility] Respiratory rate 2022-09-10 01:44:00 16 /min [facility] Body weight 2022-09-10 01:44:00 79.379 kg [facility] BMI 2022-09-10 01:44:00 35.35 kg/m2 [facility] Oxygen saturation in Arterial blood by Pulse oximetry 2022-09-10 01:44:00 100 /min [facility] Systolic blood pressure 2022-09-07 05:37:00 119 mm[Hg] [facility] Diastolic blood pressure 2022-09-07 05:37:00 67 mm[Hg] [facility] Heart rate 2022-09-07 05:37:00 79 /min [facility] Respiratory rate 2022-09-07 05:37:00 16 /min [facility] Oxygen saturation in Arterial blood by Pulse oximetry 2022-09-07 05:37:00 98 /min [facility] Body temperature 2022-09-06 23:05:00 36.78 [facility] Body weight 2022-09-06 23:05:00 79.379 kg [facility] BMI 2022-09-06 23:05:00 35.35 kg/m2 [facility] Systolic blood pressure 2021-10-02 20:55:00 111 mm[Hg] [facility] Diastolic blood pressure 2021-10-02 20:55:00 70 mm[Hg] [facility] Heart rate 2021-10-02 20:55:00 79 /min [facility] Body temperature 2021-10-02 20:55:00 36.61 [facility] Respiratory rate 2021-10-02 20:55:00 18 /min [facility] Body height 2021-10-02 20:55:00 149.9 cm [facility] Body weight 2021-10-02 20:55:00 79.379 kg [facility] BMI 2021-10-02 20:55:00 35.35 kg/m2 [facility] Oxygen saturation in Arterial blood by Pulse oximetry 2021-10-02 20:55:00 100 /min [facility] Systolic blood pressure 2021-05-05 19:20:00 102 mm[Hg] [facility] Diastolic blood pressure 2021-05-05 19:20:00 48 mm[Hg] [facility] Heart rate 2021-05-05 19:20:00 68 /min [facility] Body temperature 2021-05-05 19:20:00 36.94 [facility] Respiratory rate 2021-05-05 19:20:00 18 /min [facility] Body weight 2021-05-05 19:20:00 79.379 kg [facility] BMI 2021-05-05 19:20:00 35.35 kg/m2 [facility] Oxygen saturation in Arterial blood by Pulse oximetry 2021-05-05 19:20:00 99 /min [facility] Systolic blood pressure 2019-12-15 22:12:00 138 mm[Hg] [facility] Diastolic blood pressure 2019-12-15 22:12:00 100 mm[Hg] [facility] Heart rate 2019-12-15 22:12:00 77 /min [facility] Body temperature 2019-12-15 22:12:00 37.06 Oma [facility] Respiratory rate 2019-12-15 22:12:00 20 /min [facility] Body weight 2019-12-15 22:12:00 79.379 [facility] BMI 2019-12-15 22:12:00 35.35 kg/m2 [facility] Oxygen saturation in Arterial blood by Pulse oximetry 2019-12-15 22:12:00 100 /min [facility] Systolic blood pressure 2019-12-15 22:12:00 138 mm[Hg] [facility] Diastolic blood pressure 2019-12-15 22:12:00 100 mm[Hg] [facility] Heart rate 2019-12-15 22:12:00 77 /min [facility] Body temperature 2019-12-15 22:12:00 37.06 Oma [facility] Respiratory rate 2019-12-15 22:12:00 20 /min [facility] Body weight 2019-12-15 22:12:00 79.379 kg [facility] BMI 2019-12-15 22:12:00 35.35 kg/m2 [facility] Oxygen saturation in Arterial blood by Pulse oximetry 2019-12-15 22:12:00 100 /min [facility] Respiratory rate 2019-10-25 23:43:00 18 /min [facility] Body weight 2019-10-25 23:43:00 83.915 kg [facility] BMI 2019-10-25 23:43:00 37.37 kg/m2 [facility] Respiratory rate 2019-10-25 23:43:00 18 /min [facility] Body weight 2019-10-25 23:43:00 83.915 kg [facility] BMI 2019-10-25 23:43:00 37.37 kg/m2 [facility] Systolic blood pressure 2019-08-13 19:25:00 123 mm[Hg] [facility] Diastolic blood pressure 2019-08-13 19:25:00 88 mm[Hg] [facility] Heart rate 2019-08-13 19:25:00 78 /min [facility] Body temperature 2019-08-13 19:25:00 36.56 Oma [facility] Respiratory rate 2019-08-13 19:25:00 18 /min [facility] Body height 2019-08-13 19:25:00 149.9 cm [facility] Body weight 2019-08-13 19:25:00 90.719 kg [facility] BMI 2019-08-13 19:25:00 40.40 kg/m2 [facility] Oxygen saturation in Arterial blood by Pulse oximetry 2019-08-13 19:25:00 100 /min [facility] Systolic blood pressure 2019-08-13 19:25:00 123 mm[Hg] [facility] Diastolic blood pressure 2019-08-13 19:25:00 88 mm[Hg] [facility] Heart rate 2019-08-13 19:25:00 78 /min [facility] Body temperature 2019-08-13 19:25:00 36.56 Oma [facility] Respiratory rate 2019-08-13 19:25:00 18 /min [facility] Body height 2019-08-13 19:25:00 149.9 cm [facility] Body weight 2019-08-13 19:25:00 90.719 kg [facility] BMI 2019-08-13 19:25:00 40.40 kg/m2 [facility] Oxygen saturation in Arterial blood by Pulse oximetry 2019-08-13 19:25:00 100 /min [facility] Systolic blood pressure 2019-07-23 00:20:15 120 mm[Hg] [facility] Diastolic blood pressure 2019-07-23 00:20:15 74 mm[Hg] [facility] Heart rate 2019-07-23 00:20:15 82 /min [facility] Respiratory rate 2019-07-23 00:20:15 19 /min [facility] Oxygen saturation in Arterial blood by Pulse oximetry 2019-07-23 00:20:15 100 /min [facility] Body temperature 2019-07-22 19:41:00 36.33 Oma [facility] Body weight 2019-07-22 19:39:00 90.719 kg [facility] BMI 2019-07-22 19:39:00 39.06 kg/m2 [facility] Systolic blood pressure 2019-07-23 00:20:15 120 mm[Hg] [facility] Diastolic blood pressure 2019-07-23 00:20:15 74 mm[Hg] [facility] Heart rate 2019-07-23 00:20:15 82 /min [facility] Respiratory rate 2019-07-23 00:20:15 19 /min [facility] Oxygen saturation in Arterial blood by Pulse oximetry 2019-07-23 00:20:15 100 /min [facility] Body temperature 2019-07-22 19:41:00 36.33 Oma [facility] Body weight 2019-07-22 19:39:00 90.719 kg [facility] BMI 2019-07-22 19:39:00 39.06 kg/m2 [facility] Systolic blood pressure 2019-07-14 03:33:00 127 mm[Hg] [facility] Diastolic blood pressure 2019-07-14 03:33:00 88 mm[Hg] [facility] Heart rate 2019-07-14 03:33:00 79 /min [facility] acute hospital Respiratory rate 2019-07-14 03:33:00 16 /min [facility] Oxygen saturation in Arterial blood by Pulse oximetry 2019-07-14 03:33:00 97 /min [facility] Body weight 2019-07-14 02:16:00 90.719 kg [facility] BMI 2019-07-14 02:16:00 39.06 kg/m2 [facility] Body temperature 2019-07-14 02:15:00 36.78 Oma [facility] Body weight 2019-07-10 20:39:00 90.719 kg [facility] BMI 2019-07-10 20:39:00 39.06 kg/m2 [facility] Systolic blood pressure 2019-01-21 23:34:00 133 mm[Hg] [facility] Diastolic blood pressure 2019-01-21 23:34:00 78 mm[Hg] [facility] Heart rate 2019-01-21 23:34:00 66 /min [facility] Body temperature 2019-01-21 23:34:00 36.94 Oma [facility] Respiratory rate 2019-01-21 23:34:00 18 /min [facility] Body height 2019-01-21 23:34:00 147.3 cm [facility] Body weight 2019-01-21 23:34:00 68.04 kg [facility] BMI 2019-01-21 23:34:00 31.35 kg/m2 [facility] Oxygen saturation in Arterial blood by Pulse oximetry 2019-01-21 23:34:00 100 /min [facility] Systolic blood pressure 2019-01-21 23:34:00 133 mm[Hg] [facility] Diastolic blood pressure 2019-01-21 23:34:00 78 mm[Hg] [facility] Heart rate 2019-01-21 23:34:00 66 /min [facility] acute hospital Body temperature 2019-01-21 23:34:00 36.94 Oma [facility] Respiratory rate 2019-01-21 23:34:00 18 /min [facility] Body height 2019-01-21 23:34:00 147.3 cm [facility] Body weight 2019-01-21 23:34:00 68.04 kg [facility] BMI 2019-01-21 23:34:00 31.35 kg/m2 [facility] Oxygen saturation in Arterial blood by Pulse oximetry 2019-01-21 23:34:00 100 /min [facility] BP Systolic 2022-07-17 15:20:00 133 mm[Hg] BP [...] Procedure Date / Time Performed Performing Clinician Source REFERRAL- REQUEST/RESPONSE 2023-05-20 06:01:00 Doctor Unassigned, [place] [facility] COMP. METABOLIC PANEL (28622) 2022-09-07 01:38:00 Tayo Boyd [facility] CBC WITH DIFF 2022-09-07 01:38:00 Tayo Boyd [facility] URINALYSIS 2022-09-07 01:38:00 Tayo Boyd [facility] XR ANKLE <3 VW LEFT 2022-09-07 00:56:00 Tayo Boyd [facility] XR FOOT <3 VW LEFT 2022-09-07 00:56:00 Tayo Boyd [facility] CONSENT/REFUSAL FOR DIAGNOSIS AND TREATMENT 2022-09-06 22:08:37 Doctor Unassigned, [place] [facility] CT CERVICAL SPINE WO CONTRAST 2021-10-02 21:53[facility] 2021-10-02 21:53:00 Zac [facility] CT THORACIC SPINE WO CONTRAST 2021-10-02 21:53:00 Rachael Frankanne [facility] XR FOREARM 2 VW RIGHT 2021-05-05 20:03:34 Jose Carlos Nunez [facility] XR WRIST 3+ VW RIGHT 2021-05-05 20:03:34 Chino Nunez [facility] NOTICE OF PRIVACY PRACTICES 2021-05-05 19:12:00 Doctor Unassigned, [place] [facility] CONSENT/REFUSAL FOR DIAGNOSIS AND TREATMENT 2021-05-05 19:11:19 Doctor Unassigned, [place] [facility] CONSENT/REFUSAL FOR DIAGNOSIS AND TREATMENT 2019-08-13 19:17:22 Doctor Unassigned, [place] [facility] CT HEAD WO CONTRAST 2019-07-22 22:24:37 Rachel Samayoa [facility] XR CERVICAL SPINE 2 VW 2019-07-22 21:59:59 Samantha Samayoa [facility] CBC WITH DIFFERENTIAL 2019-07-22 21:34:00 Yanira Samayoa [facility] XR CERVICAL SPINE 2 VW 2019-07-14 02:43:00 Ivory Owen [facility] XR ELBOW <3 VW LEFT 2019-07-14 02:43:00 Henry Owen [facility] XR KNEE <3 VW RIGHT 2019-07-14 02:43:00 Henry Owen [facility] XR SHOULDER <2 VW LEFT 2019-07-14 02:43:00 TrenaIvory yulissa [facility] [id number] Ecg Routine Ecg W/least 12 Lds W/i r 2017-09-24 00:00:00 Plan of Care Planned Activity Planned Date Details Comments Source Goal Plan of Care Note [code = 60570-9] Goal Plan of Care Note [code = 33774-0] Goal Plan of Care Note [code = 19312-9] Goal Plan of Care Note [code = 61192-5] Goal Plan of Care Note [code = 65264-4] Goal Plan of Care Note [code = 33715-4] Goal Plan of Care Note [code = 70827-8] Goal Plan of Care Note [code = 06837-0] Goal Plan of Care Note [code = 15947-5] Goal Plan of Care Note [code = 61190-9] Goal Plan of Care Note [code = 24543-9] Goal Plan of Care Note [code = 72419-0] Goal Plan of Care Note [code = 54038-9] Goal Plan of Care Note [code = 79952-4] Goal Plan of Care Note [code = 03030-7] Goal Plan of Care Note [code = 97668-5] Goal Plan of Care Note [code = 86456-6] Goal Plan of Care Note [code = 99792-0] Goal Plan of Care Note [code = 67596-4] Goal Plan of Care Note [code = 87062-5] Goal Plan of Care Note [code = 19838-1] Goal Plan of Care Note [code = 70563-1] Goal Plan of Care Note [code = 13984-9] Goal Plan of Care Note [code = 23248-6] Goal Plan of Care Note [code = 91851-9] Goal Plan of Care Note [code = 84064-8] Goal Plan of Care Note [code = 34750-8] Goal Plan of Care Note [code = 56357-2] Goal Plan of Care Note [code = 50088-5] Encounters Start Date/Time End Date/Time Encounter Type Admission Type Attending Clinicians Care Facility Care Department Encounter ID Source 2022-11-13 13:10:28 Inpatient [facility] [id number] [facility] 2022-11-05 09:23:13 Inpatient [facility] [id number] [facility] 2023-05-24 15:38:52 2023-05-24 15:38:52 Outpatient [facility] [id number] Contreras 2023-05-22 00:00:00 2023-05-22 00:00:00 Letter (Out) Neurology [facility] 1.840.114 350.1.13.10 4.2.7.2.686 [id number] [facility] 2023-05-20 00:00:00 2023-05-20 00:00:00 Orders Only Doctor Unassigned, [place] [facility] 1.0.114 350.1.13.10 4.2.7.2.686 [id number] [facility] 2023-05-17 15:07:14 2023-05-17 15:07:14 Outpatient [facility] [id number] Contreras 2023-03-02 12:27:43 2023-03-02 12:27:43 Outpatient [facility] [id number] Henry Contreras 2023-01-09 17:11:26 2023-01-09 17:11:26 Outpatient [facility] [id number] Henry Contreras 2022-11-04 14:04:00 2022-11-05 11:09:00 Emergency [facility] [id number] [facility] 2022-09-24 12:33:00 2022-09-24 12:51:00 Emergency Heri Snow [facility] 1.0.114 350.1.13.10 4.2.7.2.686 [id number] [facility] 2022-09-22 00:00:00 2022-09-22 00:00:00 Nurse Triage Madhavi Mcginnis [facility] 1.0.114 350.1.13.10 4.2.7.2.686 [id number] [facility] 2022-09-18 10:09:00 2022-09-19 14:28:00 Inpatient EM Marly Mendenhall [facility] OBSE [id number] 25 [facility] 2022-09-16 22:50:00 2022-09-17 01:40:00 Emergency EM Asim Jack [facility] FABI [id number] 33 [facility] 2022-09-14 14:52:00 2022-09-15 14:00:00 Inpatient EM Vladimir Forbes [facility] TELE [id number] 75 [facility] 2022-09-13 09:34:00 2022-09-13 13:00:00 Emergency EM Brad Woodall [facility] FABI [id number] 75 [facility] 2022-09-10 23:39:00 2022-09-11 11:28:00 Emergency EM Russel Sewell [facility] [id number] 51 [facility] 2022-09-10 18:57:00 2022-09-10 20:20:00 Emergency Lisa Morfin [facility] 1..840.114 350.1.13.10 4.2.7.2.686 [id number] [facility] 2022-09-10 18:57:00 2022-09-10 20:20:00 Emergency X SANDRITA KEY [facility] ERT [id number] [facility] 2022-09-09 20:45:00 2022-09-09 22:46:00 Emergency X SANDRITA KEY [facility] ERT [id number] [facility] 2022-09-09 20:45:00 2022-09-09 22:46:00 Emergency Sandrita Key [facility] 1..840.114 350.1.13.10 4.2.7.2.686 [id number] [facility] 2022-09-06 18:09:00 2022-09-07 00:51:00 Emergency X VASUT, TAYO [facility] ERT [id number] [facility] 2022-09-06 18:09:00 2022-09-07 00:51:00 Emergency Tayo Boyd [facility] 1.2.840.114 350.1.13.10 4.2.7.2.686 [id number] [facility] 2022-08-21 14:11:33 2022-08-21 14:11:33 Outpatient [facility] [id number] Henry Quiles Ben 2022-07-17 15:03:48 2022-07-17 15:03:48 Outpatient [facility] [id number] Henry Contreras 2022-07-17 00:00:00 2022-07-17 00:00:00 Outpatient Visit [id number] 2021-10-02 15:56:00 2021-10-02 19:00:00 Emergency X JAVED FRANK [facility] ERT [id number] [facility] 2021-10-02 15:56:00 2021-10-02 19:00:00 Emergency Javed Frank [facility] 1..840.114 350.1.13.10 4.2.7.2.686 [id number] [facility] 2021-05-05 13:22:00 2021-05-05 14:48:00 Emergency X DEON NUNEZ [facility] ERT [id number] [facility] 2021-05-05 13:22:00 2021-05-05 14:48:00 Emergency Deon Nunez [facility] 1..840.114 350.1.13.10 4.2.7.2.686 [id number] [facility] 2021-05-05 00:00:2021-05-05 00:00:00 Orders Only Doctor Unassigned, [place] [facility] 1.2.840.114 350.1.13.10 4.2.7.2.686 [id number] [facility] 2019-12-15 17:11:56 2019-12-15 18:04:00 Emergency Kp Gilliland [facility] 1.2.840.114 350.1.13.10 4.2.7.2.686 [id number] 2019-12-15 17:11:56 2019-12-15 18:04:00 Emergency Kp Gilliland [facility] 1.2.840.114 350.1.13.10 4.2.7.2.686 [id number] [facility] 2019-12-15 17:11:56 2019-12-15 17:11:56 Emergency X Kp GILLILAND [facility] ERT [id number] [facility] 2019-10-25 18:31:31 2019-10-25 19:21:00 Emergency Kristin Miller [facility] 1.2.840.114 350.1.13.10 4.2.7.2.686 [id number] 2019-10-25 18:31:31 2019-10-25 19:21:00 Emergency Kristin Miller [facility] 1.2.840.114 350.1.13.10 4.2.7.2.686 [id number] [facility] 2019-10-25 18:31:31 2019-10-25 18:31:31 Emergency X KRISTIN MILLER [facility] ERT [id number] [facility] 2019-08-13 13:30:00 2019-08-13 14:36:00 Emergency Floridalma Evans [facility] 1.2.840.114 350.1.13.10 4.2.7.2.686 [id number] 2019-08-13 13:30:00 2019-08-13 14:36:00 Emergency Floridalma Evans [facility] 1.2.840.114 350.1.13.10 4.2.7.2.686 [id number] [facility] 2019-08-13 13:30:00 2019-08-13 14:36:00 Emergency X FLORIDALMA EVANS [facility] ERT [id number] [facility] 2019-07-22 13:42:11 2019-07-22 19:02:00 Emergency Unknown, Attending Lisa Morfin [facility] 1.2.840.114 350.1.13.10 4.2.7.2.686 [id number] 2019-07-22 13:42:11 2019-07-22 19:02:00 Emergency X LISA MORFIN [facility] ERT [id number] [facility] 2019-07-22 13:42:11 2019-07-22 19:02:00 Emergency Unknown, Attending Lisa Morfin [facility] 1.2.840.114 350.1.13.10 4.2.7.2.686 [id number] [facility] 2019-07-13 20:17:19 2019-07-13 21:48:00 Emergency X HENRY OWEN [facility] ERT [id number] [facility] 2019-07-13 20:17:19 2019-07-13 21:48:00 Emergency Trena Henry [facility] 1.2.840.114 350.1.13.10 4.2.7.2.686 [id number] [facility] 2019-07-10 14:26:03 2019-07-10 16:33:00 Emergency X DEBBIE PAYTON [facility] ERT [id number] [facility] 2019-07-10 14:26:03 2019-07-10 16:33:00 Emergency Debbie Payton [facility] 1.2.840.114 350.1.13.10 4.2.7.2.686 [id number] [facility] 2019-07-04 19:09:02 2019-07-04 22:51:00 Emergency X LISA MORFIN [facility] ERT [id number] [facility] 2019-06-30 10:33:08 2019-06-30 13:10:00 Emergency X DEON NUNEZ [facility] ERT [id number] [facility] 2019-05-25 11:58:19 2019-05-25 15:37:00 Emergency X DEON NUNEZ [facility] ERT [id number] [facility] 2019-04-09 22:29:37 2019-04-09 23:28:00 Emergency X FLORIDALMA EVANS [facility] ERT [id number] [facility] 2019-01-21 18:38:01 2019-01-21 19:59:00 Emergency Le Ramirez [facility] 1.2.840.114 350.1.13.10 4.2.7.2.686 [id number] 2019-01-21 18:38:01 2019-01-21 19:59:00 Emergency Le Ramirez [facility] 1.2.840.114 350.1.13.10 4.2.7.2.686 [id number] [facility] Results Test Description Test Time Test Comments Results Result Co mments Source COMPREHENSIVE METABOLIC [id number] 23:46:03* Test Item Value Reference Range Interpretation Comme nts GLUCOSE (test code = 2217) 97 MG/DL 70-99 BUN (test code = 2208) 7 MG/DL 6-20 CREATININE (test code = 2214) 0.61 MG/DL 0.60-1.30 eGFR (2020 CKD-EPI) (test code = 78578) 110 ML/MIN/1.73 >60 CALC BUN/CREAT (test code = 2235) 11 RATIO 6-28 SODIUM (test code = 2231) 132 MEQ/L 133-146 L POTASSIUM (test code = 2228) 4.1 MEQ/L 3.5-5.4 CHLORIDE (test code = 2215) 95 MEQ/L 95-107 CARBON DIOXIDE (test code = 220) 26 MEQ/L 19-31 CALCIUM (test code = 2208) 9.5 MG/DL 8.5-10.5 PROTEIN, TOTAL (test code = 2228) 7.9 G/DL 6.1-8.3 ALBUMIN (test code = 2200) 3.8 G/DL 3.5-5.2 CALC GLOBULIN (test code = 0) 4.1 G/DL 1.9-3.7 H CALC A/G RATIO (test code = 2233) 0.9 RATIO 1.0-2.6 L BILIRUBIN, TOTAL (test code = 2206) 0.2 MG/DL <=1.2 ALKALINE PHOSPHATASE (test code = 2203) 70 U/L 40-125 AST (test code = 2217) 20 U/L 9-40 ALT (test code = 2218) 13 U/L 5-40 CBC W/AUTO DIFF WITH [id number] 08:48:44* Test Item Value Reference Range Interpretation Comme nts WBC (test code = 1001) 4.8 K/UL 3.5-11.0 RBC (test code = 1002) 4.27 M/UL 3.80-5.40 HEMOGLOBIN (test code = 1003) 12.7 G/DL 11.5-15.5 HEMATOCRIT (test code = 1004) 37.6 % 34.0-45.0 MCV (test code = 1005) 88.1 fL 80.0-99.0 MCH (test code = 1006) 29.7 PG 25.0-33.0 MCHC (test code = 1007) 33.8 G/DL 31.0-36.0 RDW (test code = 1038) 14.8 % 11.5-15.0 NEUTROPHILS (test code = 1008) 49.5 % LYMPHOCYTES (test code = 1010) 33.3 % MONOCYTES (test code = 1011) 8.4 % EOSINOPHILS (test code = 1012) 8.2 % BASOPHILS (test code = 1013) 0.4 % IMMATURE GRANULOCYTES (test code = 1036) 0.2 % NUCLEATED RBCS (test code = 1065) 0.0 /100 WBC'S See_Comment [Automated message] The system which generated this result transmitted reference range: 0.0. The reference range was not used to interpret this result as normal/abnormal. PLATELET COUNT (test code = 1015) 119 K/UL 130-400 L ABSOLUTE NEUTROPHILS (test code = 1066) 2.37 K/UL 1.50-7.50 ABSOLUTE LYMPHOCYTES (test code = 1067) 1.59 K/UL 1.00-4.00 ABSOLUTE MONOCYTES (test code = 1068) 0.40 K/UL 0.20-1.00 ABSOLUTE EOSINOPHILS (test code = 1040) 0.39 K/UL 0.00-0.50 ABSOLUTE BASOPHILS (test code = 1069) 0.02 K/UL 0.00-0.20 ABS IMMATURE GRANULOCYTES (test code = 1020) 0.01 K/UL 0.00-0.10 ABS NUCLEATED RBCS (test code = 43639) 0.00 K/UL 0.00-0.11 UNLESS OTHER MONTOYA INDICATED, ALL TESTING PERFORMED AT [facility] [employer] [address] [place] [address] DIRECTOR ADVANCED: JATIN FELIPE M.D. CLIA NUMBER [id number] [place]. [id number] 01:13:06* Test Item Value Reference Range Interpretation Comme nts TRANSFERRIN (test code = 4936) 315 MG/DL 200-360 UNLESS OTHERWISE INDICATED, ALL TESTING PERFORMED AT [facility] PATH[facility] [employer] [address] [place] [address] DIRECTOR ADVANCED: JATIN FELIPE M.D. CLIA NUMBER [id number] [place]. [id number] LIPID [id number] 01:12:48* Test Item Value Reference Range Interpretation Comme nts CHOLESTEROL (test code = 2210) 191 MG/DL <200 TRIGLYCERIDES (test code = 2232) 89 MG/DL <150 HDL CHOLESTEROL (test code = 2220) 74 MG/DL >39 CALC LDL CHOL (test code = 2237) 99 MG/DL <100 NOTE: CALCULATED LDL IS BASED ON CECE-OBRIEN METHOD WHICHINCLUDES ADJUSTABLE TRIGLYCERIDE:VLDL CHOLESTEROL RATIO.THIS FACTOR VARIES BY MEASURED TRIGLYCERIDE AND NON-HDLCHOLESTEROL CONCENTRATIONS WITH INCREASED CALCULATED LDL SEENIN HIGHER TRIGLYCERIDE OR LOWER NON-HDL SPECIMENS. FOR MOREINFORMATION, SEE CLIENT ANNOUNCEMENT AT [email or web address] RISK RATIO LDL/HDL (test code = 2237) 1.34 RATIO <3.22 COMPREHENSIVE METABOLIC [id number] 01:12:48* Test Item Value Reference Range Interpretation Comme nts GLUCOSE (test code = 2216) 92 MG/DL 70-99 BUN (test code = 2207) 15 MG/DL 6-20 CREATININE (test code = 2213) 0.65 MG/DL 0.60-1.30 eGFR (2020 CKD-EPI) (test code = 24577) 108 ML/MIN/1.73 >60 CALC BUN/CREAT (test code = 2234) 23 RATIO 6-28 SODIUM (test code = 2230) 135 MEQ/L 133-146 POTASSIUM (test code = 2227) 4.2 MEQ/L 3.5-5.4 CHLORIDE (test code = 2214) 99 MEQ/L 95-107 CARBON DIOXIDE (test code = 2205) 24 MEQ/L 19-31 CALCIUM (test code = 2208) 9.8 MG/DL 8.5-10.5 PROTEIN, TOTAL (test code = 2228) 7.8 G/DL 6.1-8.3 ALBUMIN (test code = 2200) 3.9 G/DL 3.5-5.2 CALC GLOBULIN (test code = 0) 3.9 G/DL 1.9-3.7 H CALC A/G RATIO (test code = 2233) 1.0 RATIO 1.0-2.6 BILIRUBIN, TOTAL (test code = 2206) <0.2 MG/DL See_Comment [Automated me ssage] The system which generated this result transmitted reference range: <=1.2. The reference range was not used to interpret this result as normal/abnormal. ALKALINE PHOSPHATASE (test code = 2203) 73 U/L 40-125 AST (test code = 2217) 15 U/L 9-40 ALT (test code = 2218) 7 U/L 5-40 IRON BINDING CAPACITY AND IRON AND % [id number] 01:12:48* Test Item Value Reference Range Interpretation Comme nts IRON, SERUM (test code = 222) 51 UG/DL 37-145 UNSATURATED IBC (test code = 88494) 356 UG/DL 112-347 H CALC TOTAL IBC (test code = 2076) 407 UG/DL 250-450 CALC % IRON SAT (test code = 2078) 13 % 20-50 L [id number] 00:59:24* Test Item Value Reference Range Interpretation Comme nts FERRITIN (test code = 2074) 20 NG/ML 13-200 HEMOGLOBIN [id number] 03:08:40* Test Item Value Reference Range Interpretation Comme nts HEMOGLOBIN A1c (test code = 96987) 5.5 % 4.2-5.6 CBC W/AUTO DIFF WITH [id number] 02:29:36* Test Item Value Reference Range Interpretation Comme nts WBC (test code = 1001) 5.0 K/UL 3.5-11.0 RBC (test code = 1002) 3.95 M/UL 3.80-5.40 HEMOGLOBIN (test code = 1003) 11.3 G/DL 11.5-15.5 L HEMATOCRIT (test code = 1004) 34.1 % 34.0-45.0 MCV (test code = 1005) 86.3 fL 80.0-99.0 MCH (test code = 1006) 28.6 PG 25.0-33.0 MCHC (test code = 1007) 33.1 G/DL 31.0-36.0 RDW (test code = 1038) 17.6 % 11.5-15.0 H NEUTROPHILS (test code = 1008) 42.1 % LYMPHOCYTES (test code = 1010) 40.4 % MONOCYTES (test code = 1011) 11.9 % EOSINOPHILS (test code = 1012) 4.8 % BASOPHILS (test code = 1013) 0.6 % IMMATURE GRANULOCYTES (test code = 1036) 0.2 % NUCLEATED RBCS (test code = 1065) 0.0 /100 WBC'S See_Comment [Automated [employer]] The system which generated this result transmitted reference range: 0.0. The reference range was not used to interpret this result as normal/abnormal. PLATELET COUNT (test code = 1015) 126 K/UL 130-400 L ABSOLUTE NEUTROPHILS (test code = 1066) 2.08 K/UL 1.50-7.50 ABSOLUTE LYMPHOCYTES (test code = 1067) 2.00 K/UL 1.00-4.00 ABSOLUTE MONOCYTES (test code = 1068) 0.59 K/UL 0.20-1.00 ABSOLUTE EOSINOPHILS (test code = 1040) 0.24 K/UL 0.00-0.50 ABSOLUTE BASOPHILS (test code = 1069) 0.03 K/UL 0.00-0.20 ABS IMMATURE GRANULOCYTES (test code = 1020) 0.01 K/UL 0.00-0.10 ABS NUCLEATED RBCS (test code = 39717) 0.00 K/UL 0.00-0.11 DRUGS OF [id number] 05:03:00* Test Item Value Reference Range Interpretation Comme [...] 200 ng/mL Opiates 300 ng/mL URINALYSIS WITH [id number] 04:56:00* Test Item Value Reference Range Interpretation Comme nts COLOR (test code = COLU) YELLOW YELLOW [...] (test code = USPERM) /HPF NONE URINE [id number] 04:53:00* Test Item Value Reference Range Interpretation Comme nts PREG UR (test code = PGU) NEGATIVE NEGATIVE SARS-CoV (RAPID ANTIGEN)2022-11-04 17:00:00* Test Item Value Reference Range Interpretation Comme nts SARS-CoV (ANTIGEN) (test code = COVAG) NEGATIVE NEGATIVE COVID AG (test code = COVAGC) This test has been marketed under the FDA Emergency Use Authorization (EUA) to meet challenges of the COVID-19 pandemic. The validation standards normally enforced by the FDA and the [employer] (CAP) are more stringent than those required for this test. Therefore, the result should be interpreted with caution and close attention to other clinical and epidemiological data [id number] 16:00:00* Test Item Value Reference Range Interpretation Comme nts SALICYLATE (test code = 94B) <3.0 mg/dL 15.0-30.0 L LIVER [id number] 15:49:00* Test Item Value Reference Range Interpretation Comme nts BILI TOTAL (test code = 11A) 0.2 mg/dL 0.2-1.0 BILI DIRCT (test code = 12A) <0.1 mg/dL 0.0-0.3 Unable to calcul ate Indirect Bili due to low test results PROTEIN (test code = 07D) 7.2 g/dL 5.7-8.2 ALBUMIN (test code = 08D) 3.6 g/dL 3.2-4.8 GLOBULIN (test code = GLB) 3.6 g/dL 1.5-3.8 ALB/GLOB (test code = AGRR) 1.0 1.0-2.6 ALK PHOS (test code = 35A) 87 IU/L 46-116 AST (test code = 30A) 16 IU/L See_Comment [Automated messa ge] The system which generated this result transmitted reference range: <=33. The reference range was not used to interpret this result as normal/abnormal. ALT (test code = 31A) <7 IU/L 10-49 L [id number] 15:48:00* Test Item Value Reference Range Interpretation Comme nts ACETAMINPH (test code = 94M) <0.2 mg/dL 1.2-2.5 L ALCOHOL BLOOD (ETOH)2022-11-04 15:48:00* Test Item Value Reference Range Interpretation Comme nts ETOH (test code = HALC) ETHANOL The result is to be used only for medical purposes ALCOHOL (test code = 56A) <10 mg/dL See_Comment [Automated messa ge] The system which generated this result transmitted reference range: <=10. The reference range was not used to interpret this result as normal/abnormal. AMMONIA [id number] 15:48:00* Test Item Value Reference Range Interpretation Comme nts AMMONIA (test code = 54A) <10 umol/L 11-32 L CBC (INCLUDES AUTOMATED DIFFERENTIAL)2022-11-04 15:36:00* Test Item Value Reference Range Interpretation Comme nts WBC (test code = WBC) 6.0 10\\S\\3/uL [...] (test code = MDIFF) NO BASIC METABOLIC [id number] 15:31:00* Test Item Value Reference Range Interpretation Comme nts GLUCOSE (test code = 06D) 94 mg/dL 75-100 SODIUM (test code = 01A) 136 mmol/L 136-145 POTASSIUM (test code = 01B) 3.9 mmol/L 3.6-5.1 CHLORIDE (test code = 04A) 104 mmol/L 98-107 CO2 (test code = 02A) 28 mmol/L 20-31 ANION GAP (test code = ANG) 7.9 mmol/L BUN (test code = 05D) 20 mg/dL 9-23 CREATININE (test code = 03E) 0.6 mg/dL 0.6-1.0 GFR (test code = GFR) 107 mL/min/1.73m\\S\\2 See_Comment [Automated message] The system which generated this result transmitted reference range: >=90. The reference range was not used to interpret this result as normal/abnormal. GFR (test code = GFRAA) 125 mL/min/1.73m\\S\\2 See_Comment [Automated message] The system which generated this result transmitted reference range: >=90. The reference range was not used to interpret this result as normal/abnormal. EGFR (test code = EGFR) eGFR BY CKD-EPI CALCULATION IS NOT RECOMMENDED FOR PATIENTS UNDER 18 YEARS OF AGE. BUN/CREA (test code = BCR) 33 12-20 H CALCIUM (test code = 09D) 9.0 mg/dL 8.3-10.6 XR FOOT LEFT COMPLETE 3 [id number] 15:11:04 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 : 1975 Sex: FEXAMINATION:XR ANKLE LEFT COMPLETE 3 VIEWSCLINICAL INDICATION:Female, 47 years old with Sprain of jointCOMPARISON: NoneFINDINGS:Three view(s) of the ankle obtained.Joint spaces: Anatomic.Bones: No acute fractures noted. Old healed fractures of the distal tibia and fibular noted.Soft tissues: Unremarkable.IMPRESSION: No acute findings.Electronically signed by: Nikko Santiago MD 11/04/2022 3:10 PM CDT [id number] BEDSIDE [id number] 11:51:00* Test Item Value Reference Range Interpretation Comme nts GLUCOSE BEDSIDE TESTING (karen t code = GLUBED) 79 MG/DL 70-119 N GLUCOSE BEDSIDE [id number] 06:23:00* Test Item Value Reference Range Interpretation Comme nts GLUCOSE BEDSIDE TESTING (karen t code = GLUBED) 80 MG/DL 70-119 N BASIC METABOLIC [id number] 05:12:00* Test Item Value Reference Range Interpretation Comme nts SODIUM (test code = NA) 127.0 mmol/L 133-144 L POTASSIUM (test code = K) 4.0 mmol/L 3.5-5.1 N CHLORIDE (test code = CL) 95 mmol/L 95-105 N CARBON DIOXIDE (test code = CO2) 27 mmol/L 21-32 ANION GAP (test code = GAP) 5.0 GAP calc 4.0-15.0 N GLUCOSE (test code = GLU) 98 MG/DL 70-110 N BLOOD UREA NITROGEN (test code = BUN) 9 MG/DL 7-18 N GLOMERULAR FILTRATION RATE (test code = GFR) 115 estGFR >60 The Glomerular Filtration Rate is a calculated parameterbased on serum Creatinine, patient age and sex. GFR valuesless than 60 mL/min/1.73 square meters are indicative ofChronic Kidney Disease. Values less than 15 mL/min/1.73square meters indicate Kidney failure. The calculation forGFR is based on the CKD-EPI (202) calculation. This formulais race indifferent and is the recommended formula for GFRby the National Kidney Foundation for Adults.The GFR will not calculate if the sex is unknown or if thepatient's age is <18 years. CREATININE (test code = CREAT) 0.52 MG/DL 0.55-1.30 L Results may be depressed if patient is takingN-Acetylcysteine (NAC) and Metamizole (Dipyrone). CALCIUM (test code = CA) 9.4 MG/DL 8.5-10.1 N INDEX HEMOLYSIS (test code = HEMINDEX) 1 NORMAL <10 MG Index/DL See_Comment [Automated message] The system which generated this result transmitted reference range: 1 NORMAL. The reference range was not used to interpret this result as normal/abnormal. INDEX ICTERIC (test code = ICTINDEX) 1 NORMAL <2 MG Index/DL See_Comment [Automated message] The system which generated this result transmitted reference range: 1 NORMAL. The reference range was not used to interpret this result as normal/abnormal. INDEX LIPEMIA (test code = LIPINDEX) 1 NORMAL <50 MG Index/DL See_Comment [Automated message] The system which generated this result transmitted reference range: 1 NORMAL. The reference range was not used to interpret this result as normal/abnormal. CARBAMAZEPINE (TEGRETOL)2022-09-19 05:12:00* Test Item Value Reference Range Interpretation Comme nts CARBAMAZEPINE (TEGRETOL) (test code = CARB) 4.6 ug/mL 4.0-12.0 In conjunction w ith other antiepileptic drugs Therapeutic 4.0 - 8.0 Toxicity 9.0 - 12.0 Carbamazepine alone Therapeutic 8.0 - 12.0 Detection Limit = 2.0 <2.0 indicates None DetectedPerformed At: [facility] [id number] Michael Argueta MD Ph:[phone] GLUCOSE BEDSIDE [id number] 19:51:00* Test Item Value Reference Range Interpretation Comme nts GLUCOSE BEDSIDE TESTING (karen t code = GLUBED) 129 MG/DL 70-119 H OSMOLALITY [id number] 17:56:00* Test Item Value Reference Range Interpretation Comme nts OSMOLALITY SERUM (test code = OSMO) 269 mOsm/kg 275-300 L THYROID STIMULATING [id number] 17:56:00* Test Item Value Reference Range Interpretation Comme nts THYROID STIMULATING HORMONE (test code = TSH) 4.190 mc IU/ML 0.340-4.820 N GLUCOSE BEDSIDE [id number] 15:49:00* Test Item Value Reference Range Interpretation Comme nts GLUCOSE BEDSIDE TESTING (karen t code = GLUBED) 86 MG/DL 70-119 N CREATINE KINASE (CK)2022-09-18 14:33:00* Test Item Value Reference Range Interpretation Comme nts CREATINE KINASE (CK) (test c ode = CK) 145 Unit/L 26-192 N VALPROIC ACID (DEPAKENE)2022-09-18 14:26:00* Test Item Value Reference Range Interpretation Comme nts VALPROIC ACID (DEPAKENE) (te st code = VALP) 37.5 mcG/ML 50.0-100.0 L [id number] 14:26:00* Test Item Value Reference Range Interpretation Comme nts AMMONIA (test code = AMM) 29.0 mcMOL/L 11.0-32.0 N GLUCOSE BEDSIDE [id number] 11:51:00* Test Item Value Reference Range Interpretation Comme nts GLUCOSE BEDSIDE TESTING (karen t code = GLUBED) 88 MG/DL 70-119 N GLYCOSYLATED HEMOGLOBIN (HA1C)2022-09-18 06:53:00* Test Item Value Reference Range Interpretation Comme nts GLYCOSYLATED HEMOGLOBIN (HA1 C) (test code = GLYHGB) 5.2 % IS-A1C 4.5-5.6 N ESTIMATED AVERAGE [id number] 06:53:00* Test Item Value Reference Range Interpretation Comme nts ESTIMATED AVERAGE GLUCOSE (t est code = EAG) 103 MG/DLest LIPID PROFILE (CORONARY RISK)2022-09-18 06:53:00* Test Item Value Reference Range Interpretation Comme nts TRIGLYCERIDES (test code = TRIG) 83 MG/DL 0-150 N Results may be depressed if patient is takingN-Acetylcyste ine (NAC) and Metamizole (Dipyrone). CHOLESTEROL (test code = CHOL) 163 MG/DL 133-200 N CHOLESTEROL/HDL RATIO (test code = CHOLHDL) 2.17 RATIO See_Comment REFERENCE RANGE: MALE FEMALE 1/2 AVG RISK 3.43 3.27 AVG RISK 4.97 4.44 2X AVG RISK 9.55 7.05 3X AVG RISK 23.39 11.04 [Automated message] The system which generated this result transmitted reference range: 0-. The reference range was not used to interpret this result as normal/abnormal. HDL CHOLESTEROL (test code = HDL) 75 MG/DL 40-59 H Results maybe depressed if patient is taking Metamizole(Dipyrone ). NON-HDL CHOLESTEROL (test code = NHDL) 88 mg/dL <130 Patients with CHD or CHD risk LDL: <70 mg/dL nonHDL: <100 mg/dLPatients with 2+ risk factors LDL: <130 mg/dL nonHDL: <160 mg/dLPatients with 0-1 risk factors LDL: <160 mg/dL nonHDL: <190 mg/dL LIPOPROTEIN LDL (test code = LDL) 71 MG/DL 0-129 N LDL/HDL (test code = LDL/HDL) 0.94 Ratio See_Comment L LDL/HDL RISK ASSESSMENT1.47 One-half average3.22 Average5.03 Two times average6.14 Three times average [Automated message] The system which generated this result transmitted reference range: 1.48-3.22 Avg. The reference range was not used to interpret this result as normal/abnormal. INDEX HEMOLYSIS (test code = HEMINDEX) 1 NORMAL <10 MG Index/DL See_Comment [Automated message] The system which generated this result transmitted reference range: 1 NORMAL. The reference range was not used to interpret this result as normal/abnormal. INDEX ICTERIC (test code = ICTINDEX) 1 NORMAL <2 MG Index/DL See_Comment [Automated message] The system which generated this result transmitted reference range: 1 NORMAL. The reference range was not used to interpret this result as normal/abnormal. INDEX LIPEMIA (test code = LIPINDEX) 1 NORMAL <50 MG Index/DL See_Comment [Automated message] The system which generated this result transmitted reference range: 1 NORMAL. The reference range was not used to interpret this result as normal/abnormal. UR [id number] 21:28:00* Test Item Value Reference Range Interpretation Comme nts UR SODIUM RANDOM (test code = JESUSITA) 93 mmol/L 40-200 N UR POTASSIUM RANDOM (test code = KU) 54.8 mmol/L 25-125 N NO ESTABLISHED NORMAL RANGES FOR RANDOM SPECIMENS. UR CHLORIDE RANDOM (test code = CLU) 164 mmol/L 110-150 H UR OSMOLALITY [id number] 21:28:00* Test Item Value Reference Range Interpretation Comme nts UR OSMOLALITY RANDOM (test c ode = OSMOU) 475 mOsm/kg 100-1400 N CBC W/O [id number] 20:05:00* Test Item Value Reference Range Interpretation Comme nts WHITE BLOOD CELL (test code = WBC) [...] pg 25.3-35.3 N MEAN CELL HGB CONCETRATION ( test code = MCHC) 33.6 G/DL 32.7-35.1 N RED CELL DISTRIBUTION WIDTH (test code = RDW) 14.2 % 12.2-16.4 N PLATELET COUNT (test code = PLT) 177 K/mm3 155-337 N MEAN PLATELET VOLUME (test c ode = MPV) 9.5 fL 6.8-11.2 N LACTIC [id number] 19:35:00* Test Item Value Reference Range Interpretation Comme nts LACTIC ACID (test code = LACT) 1.0 mmol/L 0.4-2.0 N HCG SERUM [id number] 19:31:00* Test Item Value Reference Range Interpretation Comme nts HCG SERUM QUAL (test code = HCGQL) Negative SCREEN NEG - CT HEAD/BRAIN W/O [id number] 18:59:00 [facility] : 1975 Sex: F Patient Name: BHUMIKA JONES Unit No: [id number] EXAMS: CPT CODE: [id number] CT HEAD/BRAIN W/O CONT 04337 Location: CT head, conducted on 09/17/22 at 1837 hours COMPARISON EXAMS:Head CT exam of 09/17/22 at 00:06 hours TECHNIQUE: CT examination of the brain was performed without contrast on [facility] scanner. Scanning conducted from skull base to [...] change from the exam acquired earlier today. Electronically Sign ed by Nati Hunt M.D. on 09/17/2022 at 1859 Reported and signed by: Nati Hunt M.D. CC: Valentina Samayoa MD Dictated Date/Time: 09/17/2022 (1858) Technologist: VERO Marie(Abner)(CT) CTDI: DLP: Trnscrpt: 09/17/2022 (1858) [id number] DENIZ Lugo NAME: ROBERT [address] PHYS: Valentina Mattson [place] [address] : 1975 AGE: 47 SEX: F LOC: JOSHUA 20 PHONE #: [phone] EXAM DATE: 09/17/2022 STATUS: ADM IN FAX #: [phone] RAD #: D/C DT PAGE 1 Signed Report Patient Name: SILAS JONESPCION Unit No: [id number] EXAMS: CPT CODE: [id number] CT HEAD/BRAIN W/O CONT 25111 (Continued) Orig Print D/T: S: 09/17/2022 (190) DENIZ Lugo NAME: ROBERT[address] PHYS: Valentina Mattson [place] [address] : 1975 AGE: 47 SEX: F LOC: B.ERMED 20 PHONE #: [phone] EXAM DATE: 09/17/2022 STATUS: ADM IN FAX #: [phone] RAD #: D/C DT PAGE 2 Signed ReportURINALYSIS [id number] 16:28:00* Test Item Value Reference Range Interpretation Comme nts UA COLOR (test code = COLU) LIGHT-YELLOW DESCRIPT YELLOW UA APPEARANCE (test code = APPU) CLEAR DESCRIPT CLEAR UA GLUCOSE DIPSTICK (test code = DGLUU) NORMAL (0) mg/dL See_Comment [Automated message] The system which generated this result transmitted reference range: 0 (NORMAL). The reference range was not used to interpret this result as normal/abnormal. UA BILIRUBIN DIPSTICK (test code = BILU) NEGATIVE (0.0) mg/dL See_Comment [Automated message] The system which generated this result transmitted reference range: (NEG) 0. The reference range was not used to interpret this result as normal/abnormal. UA KETONE DIPSTICK (test code = KETU) TRACE mg/dL See_Comment [Automated message] The system which generated this result transmitted reference range: (NEG) 0. The reference range was not used to interpret this result as normal/abnormal. UA SPECIFIC GRAVITY (test code = SGU) 1.013 SG 1.001-1.035 UA BLOOD DIPSTICK (test code = LUZ) NEGATIVE (0.00) mg/dL See_Comment [Automated message] The system which generated this result transmitted reference range: 0 (NEG). The reference range was not used to interpret this result as normal/abnormal. UA PH DIPSTICK (test code = SHARON) 6.5 pH UNITS 4.6-8.0 UA PROTEIN DIPSTICK (test code = PROU) NEGATIVE (0) mg/dL See_Comment [Automated message] The system which generated this result transmitted reference range: <30 (1+). The reference range was not used to interpret this result as normal/abnormal. UA UROBILINIOGEN DIPSTICK (test code = URO) NORMAL (0) mg/Dl See_Comment [Automated message] The system which generated this result transmitted reference range: <2.0 (1+). The reference range was not used to interpret this result as normal/abnormal. UA NITRITE DIPSTICK (test code = CHARLI) NEGATIVE (0) SCREEN NEG UA LEUKOCYTE ESTERASE DIPSTICK (test code = LEUU) NEGATIVE (0) Leuk/mcL See_Comment [Automated message] The system which generated this result transmitted reference range: (NEG) 0. The reference range was not used to interpret this result as normal/abnormal. UA WBC (test code = WBCU) 0-3 #WBC/HPF 0-3 UA RBC (test code = RBCU) 0-3 #RBC/HPF 0-3 UA SQUAMOUS CELLS (test code = SQU) RARE >0 /UL NONE-SQepi DRUGS OF ABUSE SCREEN [id number] 16:28:00* Test Item Value Reference Range Interpretation Comments URN COCAINE (test code = COCAURN) NONE DETECTED (NEG) SCcutoff See_Comment [Automated message] The system which generated this result transmitted reference range: <300 NG/ML. The reference range was not used to interpret this result as normal/abnormal. URN CANNABINOIDS (test code = CANNABURN) NONE DETECTED (NEG) SCcutoff See_Comment [Automated message] The system which generated this result transmitted reference range: <50 NG/ML. The reference range was not used to interpret this result as normal/abnormal. URN AMPHETAMINE (test code = AMPHETURN) NONE DETECTED (NEG) SCcutoff See_Comment [Automated message] The system which generated this result transmitted reference range: <1000 NG/ML. The reference range was not used to interpret this result as normal/abnormal. URN BARBITURATE (test code = BARBITURN) NONE DETECTED (NEG) SCcutoff See_Comment [Automated message] The system which generated this result transmitted reference range: <200 NG/ML. The reference range was not used to interpret this result as normal/abnormal. URN BENZODIAZEPINE (test code = BENZOURN) POSITIVE SCcutoff See_Comment A [Automated message] The system which generated this result transmitted reference range: <200 NG/ML. The reference range was not used to interpret this result as normal/abnormal. URN OPIATES (test code = OPIATURN) NONE DETECTED (NEG) SCcutoff See_Comment [Automated message] The system which generated this result transmitted reference range: <300 NG/ML. The reference range was not used to interpret this result as normal/abnormal. URN PHENCYCLIDINE (PCP) (test code = PHENCURN) NONE DETECTED (NEG) SCcutoff See_Comment ------ For all drug screen analytes ------The screen method provides only a preliminary analyticaltest result. A more specific alternate chemical method mustbe used in order to obtain a confirmed analytical result.Gas chromatography/mass spectrometry (GC/MS) is thepreferred confirmatory method. Other chemical confirmationmethods are available. Clinical consideration andprofessional judgement should be applied to any drug ofabuse test result, particularly when preliminary positiveresults are used. [Automated message] The system which generated this result transmitted reference range: <25 NG/ML. The reference range was not used to interpret this result as normal/abnormal. TROP-I HIGH [id number] 16:26:00* Test Item Value Reference Range Interpretation Comme nts TROP-I HIGH SENSITIVITY (test code = TROPIHS) 8 ng/L 0-45 N CAUTION: Units of the current test methodology (ng/L) differfrom the prior test methodology (ng/mL) by a factor of 1000. 99th Percentile Upper Reference Limit (URL): Females: 54 ng/LMales: 78 ng/L In order to distinguish acute elevations of high sensitivitytroponin from other clinical conditions, the FourthUniversal Definition of Myocardial Infarction stressesclinical assessment and the demonstration of a rise and/orfall in serial troponin results above the URL. Results from different methodologies should not be comparedto one another as quantitative results and URLs may vary bymethod. BASIC METABOLIC [id number] 16:25:00* Test Item Value Reference Range Interpretation Comme nts SODIUM (test code = NA) 125.0 mmol/L 133-144 L POTASSIUM (test code = K) 4.7 mmol/L 3.5-5.1 N CHLORIDE (test code = CL) 98 mmol/L 95-105 N CARBON DIOXIDE (test code = CO2) 22 mmol/L 21-32 N ANION GAP (test code = GAP) 5.0 GAP calc 4.0-15.0 N GLUCOSE (test code = GLU) 96 MG/DL 70-110 N BLOOD UREA NITROGEN (test code = BUN) 8 MG/DL 7-18 N GLOMERULAR FILTRATION RATE (test code = GFR) 115 estGFR >60 The Glomerular Filtration Rate is a calculated parameterbased on serum Creatinine, patient age and sex. GFR valuesless than 60 mL/min/1.73 square meters are indicative ofChronic Kidney Disease. Values less than 15 mL/min/1.73square meters indicate Kidney failure. The calculation forGFR is based on the CKD-EPI (2021) calculation. This formulais race indifferent and is the recommended formula for GFRby the National Kidney Foundation for Adults.The GFR will not calculate if the sex is unknown or if thepatient's age is <18 years. CREATININE (test code = CREAT) 0.51 MG/DL 0.55-1.30 L Results may be depressed if patient is takingN-Acetylcysteine (NAC) and Metamizole (Dipyrone). CALCIUM (test code = CA) 9.7 MG/DL 8.5-10.1 N INDEX HEMOLYSIS (test code = HEMINDEX) 4 SMALL 50-200 MG Index/DL See_Comment A [Automated message] The system which generated this result transmitted reference range: 1 NORMAL. The reference range was not used to interpret this result as normal/abnormal. INDEX ICTERIC (test code = ICTINDEX) 1 NORMAL <2 MG Index/DL See_Comment [Automated message] The system which generated this result transmitted reference range: 1 NORMAL. The reference range was not used to interpret this result as normal/abnormal. INDEX LIPEMIA (test code = LIPINDEX) 1 NORMAL <50 MG Index/DL See_Comment [Automated message] The system which generated this result transmitted reference range: 1 NORMAL. The reference range was not used to interpret this result as normal/abnormal. HEPATIC FUNCTION [id number] 16:25:00* Test Item Value Reference Range Interpretation Comme nts TOTAL PROTEIN (test code = PROT) 7.6 G/DL 6.4-8.2 N ALBUMIN (test code = ALB) 3.0 G/DL 3.4-5.0 L BILIRUBIN TOTAL (test code = BILT) 0.29 MG/DL 0.00-1.00 N BILIRUBIN DIRECT (test code = BILD) < 0.10 MG/DL 0.00-0.30 N BILIRUBIN INDIRECT (test cod e = BILIND) CALC JAZMÍN MG/DL 0.2-1.3 L SGOT/AST (test code = AST) 22 Unit/L 15-37 N SGPT/ALT (test code = ALT) 14 Unit/L 12-78 N ALKALINE PHOSPHATASE TOTAL (test code = ALKP) 67 Unit/L 45-117 N CREATINE KINASE (CK)2022-09-17 16:25:00* Test Item Value Reference Range Interpretation Comme nts CREATINE KINASE (CK) (test c ode = CK) 92 Unit/L 26-192 N [id number] 16:25:00* Test Item Value Reference Range Interpretation Comme nts LIPASE (test code = LIP) 57 Unit/L 114-286 L - CT HEAD/BRAIN W/O [id number] 00:32:00 [facility] 1975 Sex: F Patient Name: BHUMIKA JONES Unit No: [id number] EXAMS: CPT CODE: [id number] CT HEAD/BRAIN W/O CONT 23735 EXAM: - CT HEAD/BRAIN W/O CONT LOCATION: H57 HISTORY: 47 years- year old Female with sz TECHNIQUE: Computerized tomography images from the skull base to the vertex were obtained. Coronal and sagittal reformatted images are provided. This exam was performed according to our departmental dose- optimization program, which includes automated exposure control, adjustment of the mA and/or kV according to patient size and/or use of iterative reconstruction technique COMPARISON: 09/14/2022 FINDINGS: Brain: The brain parenchyma is unremarkable. There is no evidence of an acute territorial infa rct. There is no mass effect, midline shift, [...] Jess Iglesias MD CC: Dictated Date/Time: 09/17/2022 (003) Technologist: Terry August CTDI: DLP: Trnscrpt: 09/17/2022 (31) [email or web address] DENIZ Lugo NAME: ROBERT[address] PHYS: YASMIN -Asim Jack [place] [address] : 1975 AGE: 47 SEX: F LOC: B.ERS PHONE #: [phone] EXAM DATE: 09/16/2022 STATUS: REG ER FAX #: [phone] RAD #: D/C DT PAGE 1 Signed Report Patient Name: SILAS JONESPCION Unit No: [id number] EXAMS: CPT CODE: [id number] HEAD/BRAIN W/O CONT [id number] (Continued) Orig Print D/T: S: 09/17/2022 (34) DENIZ Lugo NAME: ROBERT[address] PHYS: YASMIN - Asim Jack [place] [address] : 1975 AGE: 47 SEX: F LOC: B.ERS PHONE #: [phone] EXAM DATE: 2022 STATUS: REG ER FAX #: [phone] RAD #: D/C DT PAGE 2 Signed ReportTROP- I HIGH [id number] 00:13:00* Test Item Value Reference Range Interpretation Comme nts TROP-I HIGH SENSITIVITY (test code = TROPIHS) 7 ng/L 0-45 N CAUTION: Units of the current test methodology (ng/L) differfrom the prior test methodology (ng/mL) by a factor of 1000. 99th Percentile Upper Reference Limit (URL): Females: 54 ng/LMales: 78 ng/L In order to distinguish acute elevations of high sensitivitytroponin from other clinical conditions, the FourthUniversal Definition of Myocardial Infarction stressesclinical assessment and the demonstration of a rise and/orfall in serial troponin results above the URL. Results from different methodologies should not be comparedto one another as quantitative results and URLs may vary bymethod. COMPREHENSIVE METABOLIC [id number] 00:11:00* Test Item Value Reference Range Interpretation Comme nts SODIUM (test code = NA) 128.0 mmol/L 133-144 L POTASSIUM (test code = K) 4.4 mmol/L 3.5-5.1 N CHLORIDE (test code = CL) 98 mmol/L 95-105 N CARBON DIOXIDE (test code = CO2) 23 mmol/L 21-32 N ANION GAP (test code = GAP) 7.0 GAP calc 4.0-15.0 N GLUCOSE (test code = GLU) 101 MG/DL 70-110 N BLOOD UREA NITROGEN (test code = BUN) 9 MG/DL 7-18 N GLOMERULAR FILTRATION RATE (test code = GFR) 115 estGFR >60 The Glomerular Filtration Rate is a calculated parameterbased on serum Creatinine, patient age and sex. GFR valuesless than 60 mL/min/1.73 square meters are indicative ofChronic Kidney Disease. Values less than 15 mL/min/1.73square meters indicate Kidney failure. The calculation forGFR is based on the CKD-EPI (2020) calculation. This formulais race indifferent and is the recommended formula for GFRby the National Kidney Foundation for Adults.The GFR will not calculate if the sex is unknown or if thepatient's age is <18 years. CREATININE (test code = CREAT) 0.52 MG/DL 0.55-1.30 L Results may be depressed if patient is takingN-Acetylcystein e (NAC) and Metamizole (Dipyrone). TOTAL PROTEIN (test code = PROT) 7.7 G/DL 6.4-8.2 N ALBUMIN (test code = ALB) 3.2 G/DL 3.4-5.0 L ALBUMIN/GLOBULIN RATIO (test code = A/G) 0.7 RATIO 1.2-2.2 L CALCIUM (test code = CA) 9.7 MG/DL 8.5-10.1 N BILIRUBIN TOTAL (test code = BILT) 0.22 MG/DL 0.00-1.00 N BILIRUBIN DIRECT (test code = BILD) < 0.10 MG/DL 0.00-0.30 N BILIRUBIN INDIRECT (test code = BILIND) 0.22 MG/DL 0.2-1.3 N SGOT/AST (test code = AST) 22 Unit/L 15-37 N SGPT/ALT (test code = ALT) 15 Unit/L 12-78 N ALKALINE PHOSPHATASE TOTAL (test code = ALKP) 66 Unit/L 45-117 N INDEX HEMOLYSIS (test code = HEMINDEX) 3 SMALL 25-50 MG Index/DL See_Comment [Automated message] The system which generated this result transmitted reference range: 1 NORMAL. The reference range was not used to interpret this result as normal/abnormal. INDEX ICTERIC (test code = ICTINDEX) 1 NORMAL <2 MG Index/DL See_Comment [Automated message] The system which generated this result transmitted reference range: 1 NORMAL. The reference range was not used to interpret this result as normal/abnormal. INDEX LIPEMIA (test code = LIPINDEX) 1 NORMAL <50 MG Index/DL See_Comment [Automated message] The system which generated this result transmitted reference range: 1 NORMAL. The reference range was not used to interpret this result as normal/abnormal. CBC W/AUTO [id number] 23:59:00* Test Item Value Reference Range Interpretation Comme nts WHITE BLOOD CELL (test code = WBC) 5.6 K/mm3 4.1-12.1 N RED BLOOD CELL (test code = RBC) 3.70 M/mm3 3.8-5.5 L HEMOGLOBIN (test code = HGB) 10.8 G/DL 10.6-15.8 N HEMATOCRIT (test code = HCT) 32.0 % 31.8-47.4 N MEAN CELL VOLUME (test code = MCV) 86.5 fL 80.1-101.1 N MEAN CELL HGB (test code = MCH) 29.2 pg 25.3-35.3 N MEAN CELL HGB CONCETRATION ( test code = MCHC) 33.8 G/DL 32.7-35.1 N RED CELL DISTRIBUTION WIDTH (test code = RDW) 14.3 % 12.2-16.4 N RED CELL DISTRIBUTION WIDTH (test code = RDW-SD) 45.8 fL 36.4-46.3 N PLATELET COUNT (test code = PLT) 146 K/mm3 155-337 L MEAN PLATELET VOLUME (test c ode = MPV) 11.4 fL 6.8-11.2 H GRANULOCYTE % (test code = GR%) 55.8 % 37.8-82.6 N IMMATURE GRANULOCYTE % (test code = IG%) 0.2 % 0.0-2.0 N LYMPHOCYTE % (test code = LY%) 29.6 % 14.1-45.4 N MONOCYTE % (test code = MO%) 10.8 % 2.5-11.7 N EOSINOPHIL % (test code = EO%) 2.9 % 0.0-6.2 N BASOPHIL % (test code = BA%) 0.7 % 0.0-2.1 N NUCLEATED RBC % (test code = NRBC%) 0.0 /100WBC% 0.0-1.0 N GRANULOCYTE # (test code = GR#) 3.12 k/mm3 2.0-13.7 N IMMATURE GRANULOCYTE # (test code = IG#) 0.01 K/mm3 0.00-0.03 N LYMPHOCYTE # (test code = LY#) 1.65 K/mm3 0.6-3.8 N MONOCYTE # (test code = MO#) 0.60 K/mm3 0.11-0.59 H EOSINOPHIL # (test code = EO#) 0.16 K/mm3 0.0-0.4 N BASOPHIL # (test code = BA#) 0.04 K/mm3 0.0-0.1 N NUCLEATED RBC # (test code = NRBC#) 0.00 K/mm3 0.0-0.05 N - XR CHEST 1 [id number] 23:34:00 [facility] : 1975 Sex: F [place]: E St: PRE -- Patient Name: BHUMIKA JONES Unit No: [id number] EXAMS: CPT CODE: [id number] XR CHEST 1 V 59720 EXAMINATION: - XR CHEST 1 V CLINICAL INDICATION: Female, 47 years year old with cough COMPARISON: Chest September 14, 2022 FINDINGS: Single view(s) of the chest submitted. Support Devices: None. Heart: Cardiac silhouette is normal in size. Mediastinum: Mediastinal contours are normal. Lungs: Pulmonary vessels are normal in size. Lungs are well aerated and clear. Pleura: No pleural effusion is identified. No pneumothorax is present. Bones: Visualized skeleton is normal. IMPRESSION: No acute cardiopulmonary disease. at 2334 Reported and signed by: Flo Jansen MD CC: Dictated Date/Time: 09/16/2022 (2334)Technologist: Muna Monet Transcribed Date/Time: 09/16/2022 (2334) By: [email or web address] Orig Print D/T: S: 09/16/2022 (3282) [facility] NAME: SILAS JONES[address] PHYS: IGNACIO. - [place] [address] : 1975 AGE: 47 SEX: F LOC: MARCOS PHONE #: [phone] EXAM DATE: 09/16/2022 STATUS: PRE ER FAX #: [phone] RAD NO: DC Dt: PAGE 1 Signed ReportCARBAMAZEPINE (TEGRETOL) 2022-09-15 06:12:00* Test Item Value Reference Range Interpretation Comme nts CARBAMAZEPINE (TEGRETOL) (test code = CARB) 1.5 ug/mL 4.0-12.0 L In conjunction w ith other antiepileptic drugs Therapeutic 4.0 - 8.0 Toxicity 9.0 - 12.0 Carbamazepine alone Therapeutic 8.0 - 12.0 Detection Limit = 2.0 <2.0 indicates None DetectedPerformed At: [facility] [address] [id number] Michael Argueta MD Ph:[phone] VALPROIC ACID (DEPAKENE)2022-09-15 06:12:00* Test Item Value Reference Range Interpretation Comme nts VALPROIC ACID (DEPAKENE) (te st code = VALP) 80.6 mcG/ML 50.0-100.0 N COMPREHENSIVE METABOLIC [id number] 06:00:00* Test Item Value Reference Range Interpretation Comme nts SODIUM (test code = NA) 133.0 mmol/L 133-144 N POTASSIUM (test code = K) 4.0 mmol/L 3.5-5.1 N CHLORIDE (test code = CL) 104 mmol/L 95-105 N CARBON DIOXIDE (test code = CO2) 26 mmol/L 21-32 N ANION GAP (test code = GAP) 3.0 GAP calc 4.0-15.0 L GLUCOSE (test code = GLU) 91 MG/DL 70-110 N BLOOD UREA NITROGEN (test code = BUN) 10 MG/DL 7-18 N GLOMERULAR FILTRATION RATE (test code = GFR) 119 estGFR >60 The Glomerular Filtration Rate is a calculated parameterbased on serum Creatinine, patient age and sex. GFR valuesless than 60 mL/min/1.73 square meters are indicative ofChronic Kidney Disease. Values less than 15 mL/min/1.73square meters indicate Kidney failure. The calculation forGFR is based on the CKD-EPI (202) calculation. This formulais race indifferent and is the recommended formula for GFRby the National Kidney Foundation for Adults.The GFR will not calculate if the sex is unknown or if thepatient's age is <18 years. CREATININE (test code = CREAT) 0.44 MG/DL 0.55-1.30 L Results may be depressed if patient is takingN-Acetylcystein e (NAC) and Metamizole (Dipyrone). TOTAL PROTEIN (test code = PROT) 6.5 G/DL 6.4-8.2 N ALBUMIN (test code = ALB) 2.6 G/DL 3.4-5.0 L ALBUMIN/GLOBULIN RATIO (test code = A/G) 0.7 RATIO 1.2-2.2 L CALCIUM (test code = CA) 8.9 MG/DL 8.5-10.1 N BILIRUBIN TOTAL (test code = BILT) 0.22 MG/DL 0.00-1.00 N BILIRUBIN DIRECT (test code = BILD) < 0.10 MG/DL 0.00-0.30 N BILIRUBIN INDIRECT (test code = BILIND) CALC JAZMÍN MG/DL 0.2-1.3 L SGOT/AST (test code = AST) 13 Unit/L 15-37 L SGPT/ALT (test code = ALT) 13 Unit/L 12-78 N ALKALINE PHOSPHATASE TOTAL (test code = ALKP) 55 Unit/L 45-117 N INDEX HEMOLYSIS (test code = HEMINDEX) 1 NORMAL <10 MG Index/DL See_Comment [Automated message] The system which generated this result transmitted reference range: 1 NORMAL. The reference range was not used to interpret this result as normal/abnormal. INDEX ICTERIC (test code = ICTINDEX) 1 NORMAL <2 MG Index/DL See_Comment [Automated message] The system which generated this result transmitted reference range: 1 NORMAL. The reference range was not used to interpret this result as normal/abnormal. INDEX LIPEMIA (test code = LIPINDEX) 1 NORMAL <50 MG Index/DL See_Comment [Automated message] The system which generated this result transmitted reference range: 1 NORMAL. The reference range was not used to interpret this result as normal/abnormal. CBC W/AUTO [id number] 05:37:00* Test Item Value Reference Range Interpretation Comme nts WHITE BLOOD CELL (test code = WBC) 4.4 K/mm3 4.1-12.1 N RED BLOOD CELL (test code = RBC) 3.73 M/mm3 3.8-5.5 L HEMOGLOBIN (test code = HGB) 11.0 G/DL 10.6-15.8 N HEMATOCRIT (test code = HCT) 32.9 % 31.8-47.4 N MEAN CELL VOLUME (test code = MCV) 88.2 fL 80.1-101.1 N MEAN CELL HGB (test code = MCH) 29.5 pg 25.3-35.3 N MEAN CELL HGB CONCETRATION ( test code = MCHC) 33.4 G/DL 32.7-35.1 N RED CELL DISTRIBUTION WIDTH (test code = RDW) 14.6 % 12.2-16.4 N RED CELL DISTRIBUTION WIDTH (test code = RDW-SD) 47.1 fL 36.4-46.3 H PLATELET COUNT (test code = PLT) 209 K/mm3 155-337 N MEAN PLATELET VOLUME (test c ode = MPV) 9.0 fL 6.8-11.2 N GRANULOCYTE % (test code = GR%) 46.9 % 37.8-82.6 N IMMATURE GRANULOCYTE % (test code = IG%) 0.0 % 0.0-2.0 N LYMPHOCYTE % (test code = LY%) 37.4 % 14.1-45.4 N MONOCYTE % (test code = MO%) 10.2 % 2.5-11.7 N EOSINOPHIL % (test code = EO%) 4.8 % 0.0-6.2 N BASOPHIL % (test code = BA%) 0.7 % 0.0-2.1 N NUCLEATED RBC % (test code = NRBC%) 0.0 /100WBC% 0.0-1.0 N GRANULOCYTE # (test code = GR#) 2.07 k/mm3 2.0-13.7 N IMMATURE GRANULOCYTE # (test code = IG#) 0.00 K/mm3 0.00-0.03 N LYMPHOCYTE # (test code = LY#) 1.65 K/mm3 0.6-3.8 N MONOCYTE # (test code = MO#) 0.45 K/mm3 0.11-0.59 N EOSINOPHIL # (test code = EO#) 0.21 K/mm3 0.0-0.4 N BASOPHIL # (test code = BA#) 0.03 K/mm3 0.0-0.1 N NUCLEATED RBC # (test code = NRBC#) 0.00 K/mm3 0.0-0.05 N GLUCOSE BEDSIDE [id number] 20:03:00* Test Item Value Reference Range Interpretation Comme nts GLUCOSE BEDSIDE TESTING (karen t code = GLUBED) 117 MG/DL 70-119 N DRUGS OF ABUSE SCREEN [id number] 11:42:00* Test Item Value Reference Range Interpretation Comments URN COCAINE (test code = COCAURN) NONE DETECTED (NEG) SCcutoff See_Comment [Automated message] The system which generated this result transmitted reference range: <300 NG/ML. The reference range was not used to interpret this result as normal/abnormal. URN CANNABINOIDS (test code = CANNABURN) NONE DETECTED (NEG) SCcutoff See_Comment [Automated message] The system which generated this result transmitted reference range: <50 NG/ML. The reference range was not used to interpret this result as normal/abnormal. URN AMPHETAMINE (test code = AMPHETURN) NONE DETECTED (NEG) SCcutoff See_Comment [Automated message] The system which generated this result transmitted reference range: <1000 NG/ML. The reference range was not used to interpret this result as normal/abnormal. URN BARBITURATE (test code = BARBITURN) NONE DETECTED (NEG) SCcutoff See_Comment [Automated message] The system which generated this result transmitted reference range: <200 NG/ML. The reference range was not used to interpret this result as normal/abnormal. URN BENZODIAZEPINE (test code = BENZOURN) NONE DETECTED (NEG) SCcutoff See_Comment [Automated message] The system which generated this result transmitted reference range: <200 NG/ML. The reference range was not used to interpret this result as normal/abnormal. URN OPIATES (test code = OPIATURN) NONE DETECTED (NEG) SCcutoff See_Comment [Automated message] The system which generated this result transmitted reference range: <300 NG/ML. The reference range was not used to interpret this result as normal/abnormal. URN PHENCYCLIDINE (PCP) (test code = PHENCURN) NONE DETECTED (NEG) SCcutoff See_Comment ------ For all drug screen analytes ------The screen method provides only a preliminary analyticaltest result. A more specific alternate chemical method mustbe used in order to obtain a confirmed analytical result.Gas chromatography/mass spectrometry (GC/MS) is thepreferred confirmatory method. Other chemical confirmationmethods are available. Clinical consideration andprofessional judgement should be applied to any drug ofabuse test result, particularly when preliminary positiveresults are used. [Automated message] The system which generated this result transmitted reference range: <25 NG/ML. The reference range was not used to interpret this result as normal/abnormal. - CT HEAD/BRAIN W/O [id number] 11:37:00 [facility] : 1975 Sex: F Patient Name: BHUMIKA JONES Unit No: [id number] EXAMS: CPT CODE: [id number] CT HEAD/BRAIN W/O CONT 03732 EXAMINATION: - CT HEAD/BRAIN W/O CONT COMPARISON: [...] kV according to patient size ?Use of iterativereconstruction technique FINDINGS: There are no acute intracranial [...] MD; Jim Jaimes MD Dictated Date/Time: 09/14/2022 (9277) Technologist: ASUNCION CASTELLANO CTDI: DLP: Trnscrpt: 09/14/2022 (1017) [email or web address] DENZI Lugo NAME: BHUMIKA JONES [facility] PHYS: Vladimir Menchaca MD [address] [place] [address] : 1975 AGE: 47 SEX: Etta [place] [address] LOC: GregorioMANDIROSE 10 PHONE #: [phone] EXAM DATE: 09/14/2022 STATUS: ADM IN FAX #: [phone] RAD #: D/C DT PAGE 1 Signed Report Patient Name: BHUMIKA JONES Unit No: [id number] EXAMS: CPT CODE: [id number] CT HEAD/BRAIN W/O CONT 52732 (Continued) Orig Print D/T: S: 09/14/2022 (1140) DENIZ Lugo NAME: BHUMIKA JONES [facility] PHYS: Vladimir Menchaca MD [address] [place] [address] : 1975 AGE: 47 SEX: F [place] [address] LOC: NEHA 10 PHONE #: [phone] EXAM DATE: 09/14/2022 STATUS: ADM IN FAX #: [phone] RAD #: D/C DT PAGE 2 Signed ReportPT AND PTT 2022-09-14 06:51:00* Test Item Value Reference Range Interpretation Comments PT PATIENT (test code = PTP) 10.7 SECONDS 9.4-12.5 N INTERNATIONAL NORMAL RATIO (test code = INR) 0.95 INR Unit 0.88-1.13 N ----- ---------Therapeutic range for INR is dependent upon the situation.2.0-3.0 Prophylaxis / venous thromboembolism, Treatment of DVT, Acute myocardial infarction stroke prevention, Systemic embolism prevention in fibrillation3.0-4.5 AMI recurrence prevention, Systemic embolism prevention in prosthetic heart 3.0-5.4 AMI mortality reduction THROMBOPLASTIN TIME PARTIAL (test code = PTT) 34.6 SECONDS 24-37.7 N THERAPEUTIC RANG E FOR UNFRACTIONATED HEPARIN = 50.5-83.6 SEC This test is not recommended to monitor low molecularweight heparin or danaparoid. Order LMWH test COLLECTION THROUGH LINES THAT HAVE BEEN PREVIOUSLY FLUSHEDWITH HEPARIN SHOULD BE AVOIDED DUE TO POSSIBLE HEPARINCONTAMINATION HCG SERUM [id number] 06:51:00* Test Item Value Reference Range Interpretation Comme nts HCG SERUM QUAL (test code = HCGQL) Negative SCREEN NEG Specimen comments: pls use blood in the labCOMPREHENSIVE METABOLIC PANEL 2022-09-14 03:58:00* Test Item Value Reference Range Interpretation Comme nts SODIUM (test code = NA) 130.0 mmol/L 133-144 L POTASSIUM (test code = K) 4.0 mmol/L 3.5-5.1 N CHLORIDE (test code = CL) 101 mmol/L 95-105 N CARBON DIOXIDE (test code = CO2) 24 mmol/L 21-32 N ANION GAP (test code = GAP) 5.0 GAP calc 4.0-15.0 N GLUCOSE (test code = GLU) 106 MG/DL 70-110 N BLOOD UREA NITROGEN (test code = BUN) 21 MG/DL 7-18 H GLOMERULAR FILTRATION RATE (test code = GFR) 110 estGFR >60 The Glomerular Filtration Rate is a calculated parameterbased on serum Creatinine, patient age and sex. GFR valuesless than 60 mL/min/1.73 square meters are indicative ofChronic Kidney Disease. Values less than 15 mL/min/1.73square meters indicate Kidney failure. The calculation forGFR is based on the CKD-EPI (202) calculation. This formulais race indifferent and is the recommended formula for GFRby the National Kidney Foundation for Adults.The GFR will not calculate if the sex is unknown or if thepatient's age is <18 years. CREATININE (test code = CREAT) 0.61 MG/DL 0.55-1.30 N Results may be depressed if patient is takingN-Acetylcystein e (NAC) and Metamizole (Dipyrone). TOTAL PROTEIN (test code = PROT) 8.1 G/DL 6.4-8.2 N ALBUMIN (test code = ALB) 3.3 G/DL 3.4-5.0 L ALBUMIN/GLOBULIN RATIO (test code = A/G) 0.7 RATIO 1.2-2.2 L CALCIUM (test code = CA) 9.1 MG/DL 8.5-10.1 N BILIRUBIN TOTAL (test code = BILT) 0.24 MG/DL 0.00-1.00 N BILIRUBIN DIRECT (test code = BILD) < 0.10 MG/DL 0.00-0.30 N BILIRUBIN INDIRECT (test code = BILIND) 0.24 MG/DL 0.2-1.3 N SGOT/AST (test code = AST) 24 Unit/L 15-37 N SGPT/ALT (test code = ALT) 19 Unit/L 12-78 N ALKALINE PHOSPHATASE TOTAL (test code = ALKP) 81 Unit/L 45-117 N INDEX HEMOLYSIS (test code = HEMINDEX) 1 NORMAL <10 MG Index/DL See_Comment [Automated message] The system which generated this result transmitted reference range: 1 NORMAL. The reference range was not used to interpret this result as normal/abnormal. INDEX ICTERIC (test code = ICTINDEX) 1 NORMAL <2 MG Index/DL See_Comment [Automated message] The system which generated this result transmitted reference range: 1 NORMAL. The reference range was not used to interpret this result as normal/abnormal. INDEX LIPEMIA (test code = LIPINDEX) 1 NORMAL <50 MG Index/DL See_Comment [Automated message] The system which generated this result transmitted reference range: 1 NORMAL. The reference range was not used to interpret this result as normal/abnormal. CREATINE KINASE (CK)2022-09-14 03:58:00* Test Item Value Reference Range Interpretation Comme nts CREATINE KINASE (CK) (test c ode = CK) 268 Unit/L 26-192 H CBC W/AUTO [id number] 03:43:00* Test Item Value Reference Range Interpretation Comme nts WHITE BLOOD CELL (test code = WBC) 5.8 K/mm3 4.1-12.1 N RED BLOOD CELL (test code = RBC) 3.89 M/mm3 3.8-5.5 N HEMOGLOBIN (test code = HGB) 11.4 G/DL 10.6-15.8 N HEMATOCRIT (test code = HCT) 34.6 % 31.8-47.4 N MEAN CELL VOLUME (test code = MCV) 88.9 fL 80.1-101.1 N MEAN CELL HGB (test code = MCH) 29.3 pg 25.3-35.3 N MEAN CELL HGB CONCETRATION ( test code = MCHC) 32.9 G/DL 32.7-35.1 N RED CELL DISTRIBUTION WIDTH (test code = RDW) 14.3 % 12.2-16.4 N RED CELL DISTRIBUTION WIDTH (test code = RDW-SD) 46.4 fL 36.4-46.3 H PLATELET COUNT (test code = PLT) 230 K/mm3 155-337 N MEAN PLATELET VOLUME (test c ode = MPV) 8.7 fL 6.8-11.2 N GRANULOCYTE % (test code = GR%) 44.5 % 37.8-82.6 N IMMATURE GRANULOCYTE % (test code = IG%) 0.2 % 0.0-2.0 N LYMPHOCYTE % (test code = LY%) 33.6 % 14.1-45.4 N MONOCYTE % (test code = MO%) 13.4 % 2.5-11.7 H EOSINOPHIL % (test code = EO%) 7.4 % 0.0-6.2 H BASOPHIL % (test code = BA%) 0.9 % 0.0-2.1 N NUCLEATED RBC % (test code = NRBC%) 0.0 /100WBC% 0.0-1.0 N GRANULOCYTE # (test code = GR#) 2.61 k/mm3 2.0-13.7 N IMMATURE GRANULOCYTE # (test code = IG#) 0.01 K/mm3 0.00-0.03 N LYMPHOCYTE # (test code = LY#) 1.96 K/mm3 0.6-3.8 N MONOCYTE # (test code = MO#) 0.78 K/mm3 0.11-0.59 H EOSINOPHIL # (test code = EO#) 0.43 K/mm3 0.0-0.4 H BASOPHIL # (test code = BA#) 0.05 K/mm3 0.0-0.1 N NUCLEATED RBC # (test code = NRBC#) 0.00 K/mm3 0.0-0.05 N URINALYSIS [id number] 03:41:00* Test Item Value Reference Range Interpretation Comme nts UA COLOR (test code = COLU) YELLOW DESCRIPT YELLOW UA APPEARANCE (test code = APPU) CLEAR DESCRIPT CLEAR UA GLUCOSE DIPSTICK (test code = DGLUU) NORMAL (0) mg/dL See_Comment [Automated message] The system which generated this result transmitted reference range: 0 (NORMAL). The reference range was not used to interpret this result as normal/abnormal. UA BILIRUBIN DIPSTICK (test code = BILU) NEGATIVE (0.0) mg/dL See_Comment [Automated message] The system which generated this result transmitted reference range: (NEG) 0. The reference range was not used to interpret this result as normal/abnormal. UA KETONE DIPSTICK (test code = KETU) 10 (1+) mg/dL See_Comment A [Automated message] The system which generated this result transmitted reference range: (NEG) 0. The reference range was not used to interpret this result as normal/abnormal. UA SPECIFIC GRAVITY (test code = SGU) 1.032 SG 1.001-1.035 UA BLOOD DIPSTICK (test code = LUZ) NEGATIVE (0.00) mg/dL See_Comment [Automated message] The system which generated this result transmitted reference range: 0 (NEG). The reference range was not used to interpret this result as normal/abnormal. UA PH DIPSTICK (test code = SHARON) 6.0 pH UNITS 4.6-8.0 UA PROTEIN DIPSTICK (test code = PROU) 30 (1+) mg/dL See_Comment A [Automated message] The system which generated this result transmitted reference range: <30 (1+). The reference range was not used to interpret this result as normal/abnormal. UA UROBILINIOGEN DIPSTICK (test code = URO) 4 (2+) mg/Dl See_Comment A [Automated message] The system which generated this result transmitted reference range: <2.0 (1+). The reference range was not used to interpret this result as normal/abnormal. UA NITRITE DIPSTICK (test code = CHARLI) NEGATIVE (0) SCREEN NEG UA LEUKOCYTE ESTERASE DIPSTICK (test code = LEUU) 500 Leuk/mcL See_Comment A [Automated message] The system which generated this result transmitted reference range: (NEG) 0. The reference range was not used to interpret this result as normal/abnormal. UA WBC (test code = WBCU) 30-40 #WBC/HPF 0-3 A UA RBC (test code = RBCU) 0-3 #RBC/HPF 0-3 UA WBC CLUMPS (test code = WBCUCL) RARE >0 /HPF NONE UA BACTERIA (test code = BACU) FEW >1 /HPF NONE-FEW UA SQUAMOUS CELLS (test code = SQU) FEW >2 /UL NONE-SQepi UA TRANSITIONAL CELLS (test code = TRANU) RARE >0 #/HPF NONE UA MUCUS (test code = MUCU) RARE /LPF NONE - XR CHEST 2 [id number] 02:06:00 [facility] BHUMIKA JONES : 1975 Sex: F FAX: Suleman CarvalhoP [phone] [place]: [address] St: REG Patient Name: BHUMIKA JONES Unit No: [id number] EXAMS: CPT CODE: [id number] XR CHEST 2 V 60562 EXAM: - XR CHEST 2 V HISTORY: Chest pain. COMPARISON: None available time of interpretation. FINDINGS: PA and lateral view of the chest is provided. Heart size and vasc ularity are within normal limits. There is no evidence of a focal consolidation. There is no pleural effusion or pneumothorax. There is no definite acute osseous abnormality. IMPRESSION: No radiographic evidence of acute cardiopulmonary process. at 0206 Reported and signed by: Igor Almonte MD CC: Suleman Carvalho Dictated Date/Time: 09/14/2022 (020)Technologist: SULEMAN JACQUES (R) Transcribed Date/Time: 09/14/2022 (020) By: [email or web address] Orig Print D/T: S: 09/14/2022 (020) DENIZ Lugo NAME: BHUMIKA JONES [address] [place] [address] PHYS: Suleman [place], [place] [address] : 1975 AGE: 47 SEX: F LOC: Ginger.LISSETH PHONE #: [phone] EXAM DATE: 09/14/2022 STATUS: REG ER FAX #: [phone] RAD NO: DC Dt: PAGE 1 Signed Report COMPREHENSIVE METABOLIC [id number] 12:49:00* Test Item Value Reference Range Interpretation Comme nts SODIUM (test code = NA) 129.0 mmol/L 133-144 L POTASSIUM (test code = K) 3.8 mmol/L 3.5-5.1 N CHLORIDE (test code = CL) 96 mmol/L 95-105 N CARBON DIOXIDE (test code = CO2) 27 mmol/L 21-32 N ANION GAP (test code = GAP) 6.0 GAP calc 4.0-15.0 N GLUCOSE (test code = GLU) 100 MG/DL 70-110 N BLOOD UREA NITROGEN (test code = BUN) 14 MG/DL 7-18 N GLOMERULAR FILTRATION RATE (test code = GFR) 114 estGFR >60 The Glomerular Filtration Rate is a calculated parameterbased on serum Creatinine, patient age and sex. GFR valuesless than 60 mL/min/1.73 square meters are indicative ofChronic Kidney Disease. Values less than 15 mL/min/1.73square meters indicate Kidney failure. The calculation forGFR is based on the CKD-EPI (2020) calculation. This formulais race indifferent and is the recommended formula for GFRby the National Kidney Foundation for Adults.The GFR will not calculate if the sex is unknown or if thepatient's age is <18 years. CREATININE (test code = CREAT) 0.54 MG/DL 0.55-1.30 L Results may be depressed if patient is takingN-Acetylcystein e (NAC) and Metamizole (Dipyrone). TOTAL PROTEIN (test code = PROT) 8.2 G/DL 6.4-8.2 N ALBUMIN (test code = ALB) 3.3 G/DL 3.4-5.0 L ALBUMIN/GLOBULIN RATIO (test code = A/G) 0.7 RATIO 1.2-2.2 L CALCIUM (test code = CA) 9.2 MG/DL 8.5-10.1 N BILIRUBIN TOTAL (test code = BILT) 0.23 MG/DL 0.00-1.00 N BILIRUBIN DIRECT (test code = BILD) 0.12 MG/DL 0.00-0.30 N BILIRUBIN INDIRECT (test code = BILIND) 0.11 MG/DL 0.2-1.3 L SGOT/AST (test code = AST) 25 Unit/L 15-37 N SGPT/ALT (test code = ALT) 18 Unit/L 12-78 N ALKALINE PHOSPHATASE TOTAL (test code = ALKP) 68 Unit/L 45-117 N INDEX HEMOLYSIS (test code = HEMINDEX) 1 NORMAL <10 MG Index/DL See_Comment [Automated message] The system which generated this result transmitted reference range: 1 NORMAL. The reference range was not used to interpret this result as normal/abnormal. INDEX ICTERIC (test code = ICTINDEX) 1 NORMAL <2 MG Index/DL See_Comment [Automated message] The system which generated this result transmitted reference range: 1 NORMAL. The reference range was not used to interpret this result as normal/abnormal. INDEX LIPEMIA (test code = LIPINDEX) 1 NORMAL <50 MG Index/DL See_Comment [Automated message] The system which generated this result transmitted reference range: 1 NORMAL. The reference range was not used to interpret this result as normal/abnormal. [id number] 12:49:00* Test Item Value Reference Range Interpretation Comme nts MAGNESIUM (test code = MAG) 1.7 MG/DL 1.6-2.6 N CBC W/AUTO [id number] 12:36:00* Test Item Value Reference Range Interpretation Comme nts WHITE BLOOD CELL (test code = WBC) 5.8 K/mm3 4.1-12.1 N RED BLOOD CELL (test code = RBC) 3.82 M/mm3 3.8-5.5 N HEMOGLOBIN (test code = HGB) 11.2 G/DL 10.6-15.8 N HEMATOCRIT (test code = HCT) 34.0 % 31.8-47.4 N MEAN CELL VOLUME (test code = MCV) 89.0 fL 80.1-101.1 N MEAN CELL HGB (test code = MCH) 29.3 pg 25.3-35.3 N MEAN CELL HGB CONCETRATION ( test code = MCHC) 32.9 G/DL 32.7-35.1 N RED CELL DISTRIBUTION WIDTH (test code = RDW) 14.5 % 12.2-16.4 N RED CELL DISTRIBUTION WIDTH (test code = RDW-SD) 47.0 fL 36.4-46.3 H PLATELET COUNT (test code = PLT) 214 K/mm3 155-337 N MEAN PLATELET VOLUME (test c ode = MPV) 8.7 fL 6.8-11.2 N GRANULOCYTE % (test code = GR%) 52.2 % 37.8-82.6 N IMMATURE GRANULOCYTE % (test code = IG%) 0.3 % 0.0-2.0 N LYMPHOCYTE % (test code = LY%) 34.0 % 14.1-45.4 N MONOCYTE % (test code = MO%) 10.1 % 2.5-11.7 N EOSINOPHIL % (test code = EO%) 2.7 % 0.0-6.2 N BASOPHIL % (test code = BA%) 0.7 % 0.0-2.1 N NUCLEATED RBC % (test code = NRBC%) 0.0 /100WBC% 0.0-1.0 N GRANULOCYTE # (test code = GR#) 3.04 k/mm3 2.0-13.7 N IMMATURE GRANULOCYTE # (test code = IG#) 0.02 K/mm3 0.00-0.03 N LYMPHOCYTE # (test code = LY#) 1.98 K/mm3 0.6-3.8 N MONOCYTE # (test code = MO#) 0.59 K/mm3 0.11-0.59 N EOSINOPHIL # (test code = EO#) 0.16 K/mm3 0.0-0.4 N BASOPHIL # (test code = BA#) 0.04 K/mm3 0.0-0.1 N NUCLEATED RBC # (test code = NRBC#) 0.00 K/mm3 0.0-0.05 N PENDING RECEIPT OF SPECIMEN PER B.LAB.KTP AT 09/13/22 1143URINALYSIS COMPLETE 2022-09-13 12:22:00* Test Item Value Reference Range Interpretation Comme nts UA COLOR (test code = COLU) LIGHT-YELLOW DESCRIPT YELLOW UA APPEARANCE (test code = APPU) TURBID (1+)HAZY-CLDY DESCRIPT CLEAR A UA GLUCOSE DIPSTICK (test code = DGLUU) NORMAL (0) mg/dL See_Comment [Automated message] The system which generated this result transmitted reference range: 0 (NORMAL). The reference range was not used to interpret this result as normal/abnormal. UA BILIRUBIN DIPSTICK (test code = BILU) NEGATIVE (0.0) mg/dL See_Comment [Automated message] The system which generated this result transmitted reference range: (NEG) 0. The reference range was not used to interpret this result as normal/abnormal. UA KETONE DIPSTICK (test code = KETU) NEGATIVE (0) mg/dL See_Comment [Automated message] The system which generated this result transmitted reference range: (NEG) 0. The reference range was not used to interpret this result as normal/abnormal. UA SPECIFIC GRAVITY (test code = SGU) 1.024 SG 1.001-1.035 UA BLOOD DIPSTICK (test code = LUZ) NEGATIVE (0.00) mg/dL See_Comment [Automated message] The system which generated this result transmitted reference range: 0 (NEG). The reference range was not used to interpret this result as normal/abnormal. UA PH DIPSTICK (test code = SHARON) 6.0 pH UNITS 4.6-8.0 UA PROTEIN DIPSTICK (test code = PROU) NEGATIVE (0) mg/dL See_Comment [Automated message] The system which generated this result transmitted reference range: <30 (1+). The reference range was not used to interpret this result as normal/abnormal. UA UROBILINIOGEN DIPSTICK (test code = URO) NORMAL (0) mg/Dl See_Comment [Automated message] The system which generated this result transmitted reference range: <2.0 (1+). The reference range was not used to interpret this result as normal/abnormal. UA NITRITE DIPSTICK (test code = CHARLI) NEGATIVE (0) SCREEN NEG UA LEUKOCYTE ESTERASE DIPSTICK (test code = LEUU) NEGATIVE (0) Leuk/mcL See_Comment [Automated message] The system which generated this result transmitted reference range: (NEG) 0. The reference range was not used to interpret this result as normal/abnormal. UA WBC (test code = WBCU) 0-3 #WBC/HPF 0-3 UA RBC (test code = RBCU) 0-3 #RBC/HPF 0-3 UA BACTERIA (test code = BACU) TRACE >0 /HPF NONE-FEW UA SQUAMOUS CELLS (test code = SQU) RARE >0 /UL NONE-SQepi UA MUCUS (test code = MUCU) RARE /LPF NONE DRUGS OF ABUSE SCREEN [id number] 00:33:00* Test Item Value Reference Range Interpretation Comme nts URN COCAINE (test code = COCAURN) NEGATIVE NEGATIVE Cocaine cut-off concentration: 300 ng/mL URN CANNABINOIDS (test code = CANNABURN) NEGATIVE NEGATIVE Cannabinoids c ut-off concentration: 50 ng/mL URN AMPHETAMINE (test code = AMPHETURN) NEGATIVE NEGATIVE Amphetamine cu t-off concentration: 1000 ng/mL URN BARBITURATE (test code = BARBITURN) NEGATIVE NEGATIVE Barbiturate cu t-off concentration: 200 ng/mL URN BENZODIAZEPINE (test code = BENZOURN) NEGATIVE NEGATIVE Benzodiaz epine cut-off concentration: 200 ng/mL URN OPIATES (test code = OPIATURN) NEGATIVE NEGATIVE Opiates cut-off concentration: 2000 ng/mL URN PHENCYCLIDINE (PCP) (test code = PHENCURN) NEGATIVE NEGATIVE Phencycli dine(PCP) cut-off concentration: 25 ng/ml URN METHADONE (test code = METHAURN) NEGATIVE NEGATIVE Methadone cut-o ff concentration: 300 ng/mL UA RFLX MICR CULT IF [id number] 00:30:00* Test Item Value Reference Range Interpretation Comme nts UA COLOR (test code = COLU) YELLOW UA APPEARANCE (test code = APPU) CLEAR UA GLUCOSE DIPSTICK (test code = DGLUU) NORMAL mg/dl NORMAL UA BILIRUBIN DIPSTICK (test code = BILU) NEGATIVE mg/dL NEGATIVE UA KETONE DIPSTICK (test code = KETU) 5 mg/dl mg/dl NEGATIVE A UA SPECIFIC GRAVITY (test code = SGU) 1.015 1.000-1.030 UA BLOOD DIPSTICK (test code = LUZ) NEGATIVE Michael/micL NEGATIVE UA PH DIPSTICK (test code = SHARON) 6.0 5.0-9.0 UA PROTEIN DIPSTICK (test code = PROU) NEGATIVE mg/dl NEGATIVE UA UROBILINIOGEN DIPSTICK (test code = URO) NORMAL mg/dl NORMAL UA NITRITE DIPSTICK (test code = CHARLI) NEGATIVE NEGATIVE UA LEUKOCYTE ESTERASE DIPSTICK (test code = LEUU) NEGATIVE Naif/micL NEGATIVE UA WBC (test code = WBCU) 0-3 WBC/HPF NONE UA RBC (test code = RBCU) 0-2 RBC/HPF 0-3 UA EPITHELIAL CELLS (test code = EPIU) 5-10 EPI/HPF 0-3 A UA BACTERIA (test code = BACU) FEW NONE Indication for culture: Suprapubic PainSpecimen Description: CLEAN CATCHBASIC METABOLIC [id number] 00:18:00* Test Item Value Reference Range Interpretation Comme nts SODIUM (test code = NA) 134 mmol/l 134.0-147.0 N POTASSIUM (test code = K) 3.9 mmol/L 3.6-5.2 N CHLORIDE (test code = CL) 98 mmol/l 98.0-107.0 N CARBON DIOXIDE (test code = CO2) 26.4 mmol/l 21.0-33.0 N ANION GAP (test code = GAP) 13.5 0-20 N GLUCOSE (test code = GLU) 94 mg/dl 70.0-110.0 N BLOOD UREA NITROGEN (test code = BUN) 24 mg/dl 7.0-18.0 H GLOMERULAR FILTRATION RATE (test code = GFR) 113 mL/min The Glomerular Filtration Rate is a calculated parameterbased on serum Creatinine, patient age and sex. GFR valuesless than 60 mL/min/1.73 square meters are indicative ofChronic Kidney Disease. Values less than 15 mL/min/1.73square meters indicate Kidney failure. The calculation forGFR is based on the CKD-EPI (202) calculation. This formulais race indifferent and is the recommended formula for GFRby the National Kidney Foundation for Adults.The GFR will not calculate if the sex is unknown or if thepatient's age is <18 years. CREATININE (test code = CREAT) 0.55 mg/dL 0.60-1.30 L CALCIUM (test code = CA) 8.9 mg/dl 8.0-10.5 N HEPATIC FUNCTION PANEL [id number] 00:18:00* Test Item Value Reference Range Interpretation Comme nts TOTAL PROTEIN (test code = PROT) 7.6 GM/DL 6.0-8.1 N ALBUMIN (test code = ALB) 3.1 gm/dL 3.2-4.7 L BILIRUBIN TOTAL (test code = BILT) 0.1 mg/dl 0.0-1.0 N BILIRUBIN DIRECT (test code = BILD) <0.1 mg/dl 0.0-0.3 N SGOT/AST (test code = AST) 12 Units/L 15-37 L SGPT/ALT (test code = ALT) 16 Units/L 12.0-78.0 N ALKALINE PHOSPHATASE TOTAL ( test code = ALKP) 113 Units/L 50.0-136.0 N HCG SERUM [id number] 00:18:00* Test Item Value Reference Range Interpretation Comme nts HCG SERUM QUAL (test code = HCGQL) NEGATIVE NEGATIVE [id number] 00:18:00* Test Item Value Reference Range Interpretation Comme nts ALCOHOL (test code = ALC) 0.00 gm/dL 0.00-0.00 N [facility]: 0.050 GM/DL - NOT INTOXICATED 0.100 GM/DL - INTOXICATED 0.350-0.450 GM/DL - SEVERELY INTOXICATED 0.550 GM/DL- FATAL INTOXICATION Coronavirus 2019 nCoV [id number] 00:09:00* Test Item Value Reference Range Interpretation Comme nts Coronavirus 2019 nCoV Bedside (test code = [id number]) Negative NEGATIVE Negative results should be treated as presumptive and ifinconsistent with clinical signs and symptoms, or necessaryfor patient management, should be tested with an alternativemolecular assay. Negative results do not preclude VPDI-PsB-5apxfwedno and should not be used as the sole basis forpatient management decisions. Negative results should beconsidered in the context of a patient's recent exposures,history, presence of clinical signs and symptoms consistentwith COVID-19. CBC W/AUTO [id number] 23:58:00* Test Item Value Reference Range Interpretation Comme nts WHITE BLOOD CELL (test code = WBC) 7.0 K/mm3 4.5-11.0 N RED BLOOD CELL (test code = RBC) 3.81 M/mm3 3.80-5.20 N HEMOGLOBIN (test code = HGB) 11.1 gm/dL 12.0-16.0 L HEMATOCRIT (test code = HCT) 33.5 % 36.0-48.0 L MEAN CELL VOLUME (test code = MCV) 87.9 UM3 82.0-99.0 N MEAN CELL HGB (test code = MCH) 29.1 UUG 25.5-32.5 N MEAN CELL HGB CONCETRATION (test code = MCHC) 33.1 gm/dL 29.0-35.5 N RED CELL DISTRIBUTION WIDTH (test code = RDW) 14.9 % 11.5-15.0 N RED CELL DISTRIBUTION WIDTH SD (test code = RDW-SD) 48.1 fL 34.8-50.2 N PLATELET COUNT (test code = PLT) 246 K/mm3 150-400 N MEAN PLATELET VOLUME (test c ode = MPV) 9.0 fl 7.4-10.4 N NEUTROPHIL % (test code = NT%) 52.8 % 49.0-76.0 N IMMATURE GRANULOCYTE % (test code = IG%) 0.1 % 0.0-0.4 N LYMPHOCYTE % (test code = LY%) 29.3 % 23.0-38.0 N MONOCYTE % (test code = MO%) 12.8 % 1.0-10.0 H EOSINOPHIL % (test code = EO%) 4.3 % 1.0-5.0 N BASOPHIL % (test code = BA%) 0.7 % 0.0-1.0 N NUCLEATED RBC % (test code = NRBC%) 0.0 % 0.0-0.1 N NEUTROPHIL # (test code = NT#) 3.7 K/mm3 2.4-6.3 N IMMATURE GRANULOCYTE # (test code = IG#) 0.01 x10 3/uL 0.00-0.07 N LYMPHOCYTE # (test code = LY#) 2.0 K/mm3 1.2-4.0 N MONOCYTE # (test code = MO#) 0.9 K/mm3 0.0-0.6 H EOSINOPHIL # (test code = EO#) 0.3 K/MM3 0.0-0.7 N BASOPHIL # (test code = BA#) 0.1 K/mm3 0.0-0.2 N NUCLEATED RBC # (test code = NRBC#) 0.00 X10 3uL 0.00-0.01 N COMP. METABOLIC PANEL (11330)2022-09-07 02:12:41* Test Item Value Reference Range Interpretation Comme nts NA (test code = 1351258725) 133 mmol/L 135-145 L K (test code = 5482294510) 4.4 mmol/L 3.5-5.0 CL (test code = 6099064065) 102 mmol/L 98-108 CO2 TOTAL (test code = 3601662881) 25 mmol/L 23-31 AGAP (test code = 4438216213) 6 2-16 BUN (test code = 2575337886) 22 mg/dL 7-23 GLUCOSE (test code = 5623930729) 97 mg/dL 70-110 CREATININE (test code = 7474524697) 0.40 mg/dL 0.50-1.04 L TOTAL BILI (test code = 1962525462) 0.3 mg/dL 0.1-1.1 CALCIUM (test code = 8273781141) 8.9 mg/dL 8.6-10.6 T PROTEIN (test code = 0512553362) 7.7 g/dL 6.3-8.2 ALBUMIN (test code = 5107444349) 4.0 g/dL 3.5-5.0 ALK PHOS (test code = 1587139831) 104 U/L 34-122 ALTv (test code = 1742-6) 15 U/L 5-35 AST(SGOT) (test code = 3509973670) 22 U/L 13-40 eGFR (test code = 9360078170) 170.4 mL/min/1.73m2 HANNAH (test code = HANNAH) Association of [...] or abnormalities in imaging tests). Lab Interpretation (test code = 44691-5) Abnormal [facility] WITH [id number] 02:01:20* Test Item Value Reference Range Interpretation Comme nts WBC (test code = 6690-2) 6.17 See_Comment [Automated messa ge] The system which generated this result transmitted reference range: 4.30 - 11.10 10*3/?L. The reference range was not used to interpret this result as normal/abnormal. RBC (test code = 789-8) 3.73 See_Comment L [Automated messa ge] The system which generated this result transmitted reference range: 3.93 - 5.25 10*6/?L. The reference range was not used to interpret this result as normal/abnormal. HGB (test code = 718-7) 10.9 g/dL 11.6-15.0 L HCT (test code = 4544-3) 33.1 % 35.7-45.2 L MCV (test code = 787-2) 88.7 fL 80.6-95.5 MCH (test code = 785-6) 29.2 pg 25.9-32.8 MCHC (test code = 786-4) 32.9 g/dL 31.6-35.1 RDW-SD (test code = 03734-2) 48.1 fL 39.0-49.9 RDW-CV (test code = 788-0) 14.7 % 12.0-15.5 PLT (test code = 777-3) 272 See_Comment [Automated messa ge] The system which generated this result transmitted reference range: 166 - 358 10*3/?L. The reference range was not used to interpret this result as normal/abnormal. MPV (test code = 62236-1) 9.6 fL 9.5-12.9 NRBC/100 WBC (test code = 8291313160) 0.0 See_Comment [Automated [employer] ssage] The system which generated this result transmitted reference range: 0.0 - 10.0 /100 WBCs. The reference range was not used to interpret this result as normal/abnormal. NRBC x10^3 (test code = 1392030634) See_Comment [Automated messa ge] The system which generated this result transmitted reference range: 10*3/?L. The reference range was not used to interpret this result as normal/abnormal. GRAN MAT (NEUT) % (test code = 770-8) 42.2 % IMM GRAN % (test code = 1991953408) 0.20 % LYMPH % (test code = 736-9) 38.2 % MONO % (test code = 5905-5) 12.6 % EOS % (test code = 713-8) 5.8 % BASO % (test code = 706-2) 1.0 % GRAN MAT x10^3(ANC) (test code = 9806483078) 2.60 10*3/uL 1.88-7.09 IMM GRAN x10^3 (test code = 7081544777) 0.00-0.06 LYMPH x10^3 (test code = 731-0) 2.36 10*3/uL 1.32-3.29 MONO x10^3 (test code = 742-7) 0.78 10*3/uL 0.33-0.92 EOS x10^3 (test code = 711-2) 0.36 10*3/uL 0.03-0.39 BASO x10^3 (test code = 704-7) 0.06 10*3/uL 0.01-0.07 Lab Interpretation (test code = 75670-2) [facility] (HIGH RISK) 2020-08-19 00:00:00* Test Item Value Reference Range Interpretation Comme nts SARS-CoV-2 INTERPRETATION (t est code = 27719) NEGATIVE SOURCE (test code = 80776) NOT SPECIFIED SARS-CoV-2 (COVID-19) by RT-PCR (HIGH RISK)2020-08-19 00:00:00* Test Item Value Reference Range Interpretation Comme nts SARS-CoV-2 INTERPRETATION (t est code = 32872) NEGATIVE SOURCE (test code = 22990) NOT SPECIFIED PAP TEST, THINPREP, [id number] 00:00:00* Test Item Value Reference Range Interpretation Comme nts SOURCE: (test code = 8001) Cervical/Endocervical SLIDES: (test code = 8011) 1 LMP: (test code = 8021) 06/2017 SPECIMEN ADEQUACY: (test code = 57379) (NOTE) INTERPRETATION: (test code = 58965) NILM/NO EPITH. ABNORMALITY;SEE BELOW TRAVELING REPAIR ACCOUNTANT: (test code = 8101) Rita Galvez,CT(ASCP) IAC LOCATION: (test code = 89064) (NOTE) CPT: (test code = 8140) (NOTE) PAP TEST, THINPREP, [id number] 00:00:00* Test Item Value Reference Range Interpretation Comme nts SOURCE: (test code = 8001) Cervical/Endocervical SLIDES: (test code = 8011) 1 LMP: (test code = 8021) 06/2017 SPECIMEN ADEQUACY: (test code = 66173) (NOTE) INTERPRETATION: (test code = 23448) NILM/NO EPITH. ABNORMALITY;SEE BELOW TRAVELING REPAIR ACCOUNTANT: (test code = 8101) Rita Wen,CT(ASCP) IAC LOCATION: (test code = 39522) (NOTE) CPT: (test code = 8140) (NOTE) HPV HIGH RISK WITH GENOTYPE, [id number] 00:00:00* Test Item Value Reference Range Interpretation Comme nts HPV HIGH RISK INTERP (test c ode = 63297) NEGATIVE HPV 16 (test code = 36946) NEGATIVE HPV 18 (test code = 80719) NEGATIVE HPV, HR, OTHER GENOTYPES (te st code = 35994) NEGATIVE HPV HIGH RISK WITH GENOTYPE, [id number] 00:00:00* Test Item Value Reference Range Interpretation Comme nts HPV HIGH RISK INTERP (test c ode = 26783) NEGATIVE HPV 16 (test code = 90055) NEGATIVE HPV 18 (test code = 03600) NEGATIVE HPV, HR, OTHER GENOTYPES (te st code = 41436) NEGATIVE CT HEAD WO [id number] 22:34:12Impression: 1. ?No acute intracranial process. 2. [...] of the orbits are withinnormal limits. The mastoidair cells, paranasal sinuses are within normallimits. [facility], [facility] 4:35 PM CSTExam: CT [...] slightly atypical and unexpectedgiven the age of t he patient. Please correlate with history and physicalexamination.[facility] 2 [id number] 22:29:40No acute osseous abnormality. Preliminary Report Dictated by Resident: Chi Cervantes MD., have reviewed this study and agree with theabove report.EXAM: XR CERVICAL SPINE 2 VW HISTORY: neck pain COMPARISON: 07/13/2019 FINDINGS: The vertebral bodies are normal in height and in normal alignment. Theintervertebral disc spaces are unremarkable. The prevertebral soft tissuesare within normal limits. [facility] 4:30 PM CSTEXAM: XR CERVICAL SPINE 2VWHISTORY: neck pain COMPARISON: 07/13/2019FINDINGS:The vertebral bodies are normal in height and innormal alignment. Theintervertebral disc spaces are unremarkable. The prevertebral soft tissuesare within normal limits.IMPRESSIONNo acute osseous abnormality.Preliminary Report Dictated by Resident:Chi Richter MD., have reviewed this study and agree with theabove report.[facility] WITH [id number] 21:46:00* Test Item Value Reference Range Interpretation Comme nts WBC (test code = 6690-2) See_Comment [Automated messa ge] The system which generated this result transmitted reference range: 4.30 - 11.10 10*3/?L. The reference range was not used to interpret this result as normal/abnormal. RBC (test code = 789-8) See_Comment L [Automated messa ge] The system which generated this result transmitted reference range: 3.93 - 5.25 10*6/?L. The reference range was not used to interpret this result as normal/abnormal. HGB (test code = 718-7) 10.7 g/dL 11.6-15 L HCT (test code = 4544-3) 33.2 % 35.7-45.2 L MCV (test code = 787-2) 85.8 fL 80.6-95.5 MCH (test code = 785-6) 27.6 pg 25.9-32.8 MCHC (test code = 786-4) 32.2 g/dL 31.6-35.1 RDW-SD (test code = 54437-9) 45.1 fL 39-49.9 RDW-CV (test code = 788-0) 14.6 % 12-15.5 PLT (test code = 777-3) See_Comment L [Automated messa ge] The system which generated this result transmitted reference range: 166 - 358 10*3/?L. The reference range was not used to interpret this result as normal/abnormal. MPV (test code = 97305-2) 9.0 fL 9.5-12.9 L NRBC/100 WBC (test code = 0802038194) See_Comment [Automated me ssage] The system which generated this result transmitted reference range: 0.0 - 10.0 /100 WBCs. The reference range was not used to interpret this result as normal/abnormal. NRBC x10^3 (test code = 9552267223) <0.01 See_Comment [Automated messa ge] The system which generated this result transmitted reference range: 10*3/?L. The reference range was not used to interpret this result as normal/abnormal. GRAN MAT (NEUT) % (test code = 770-8) 51.3 % IMM GRAN % (test code = 6892975095) 0.40 % LYMPH % (test code = 736-9) 24.4 % MONO % (test code = 5905-5) 23.1 % EOS % (test code = 713-8) 0.4 % BASO % (test code = 706-2) 0.4 % GRAN MAT x10^3(ANC) (test code = 9578176917) 2.48 10*3/uL 1.88-7.09 IMM GRAN x10^3 (test code = 2340531416) <0.03 0-0.06 LYMPH x10^3 (test code = 731-0) 1.18 10*3/uL 1.32-3.29 L MONO x10^3 (test code = 742-7) 1.12 10*3/uL 0.33-0.92 H EOS x10^3 (test code = 711-2) <0.03 0.03-0.39 L BASO x10^3 (test code = 704-7) <0.03 0.01-0.07 Lab Interpretation (test code = 81549-2) [facility] [id number] 03:28:03No acute osseous abnormality. Preliminary Report Dictated by Resident: Brandon Cervantes MD., have reviewed this study and agree withthe above report.EXAM: XR CERVICAL SPINE 2VW HISTORY: neck pain COMPARISON: 07/04/2019 FINDINGS: The vertebral bodies are normal in height andin normal alignment. Theintervertebral disc spaces are preserved. The prevertebral soft tissues arewithin normal limits. [facility], Radiant Results Inft User - 07/13/2019 9:29 PM CSTEXAM: XR CERVICAL SPINE 2 VWHISTORY: neck pain COMPARISON: 07/04/2019FINDINGS:The vertebral bodies are normal in height and in normal alignment. Theintervertebral disc spaces are preserved.The prevertebral soft tissues arewithin normal limits.IMPRESSIONNo acute osseous abnormality.Preliminary Report Dictated by Resident: Brandon Richter MD., have reviewed this study and agree withthe above report. [facility] [id number] 08:03:22* Test Item Value Reference Range Interpretation Comme nts Valproic Acid Level (test co de = Valproic Acid Level) 57.6 ug/mL(g) 50.0-100.0 Hemoglobin [id number] 09:36:00* Test Item Value Reference Range Interpretation Comme nts Hemoglobin A1c (test code = Hemoglobin A1c) 5.0 % 4.8-5.9 Non Diabetic 4.8-5.9%Diabetic <7.0% CT Shoulder w/o Contrast [id number] 16:49:13Patient: BHUMIKA JONES Date/Time01/09/2019 16:14 CDTReason for [...] Adam FSigned (Electronic Signature): 01/09/2019 4:49 pmRPR [id number] 21:33:20* Test Item Value Reference Range Interpretation Comme nts RPR Qual (test code = RPR Qual) Non-Reactive Non-Reactive Reactive Control (test code = Reactive Control) Reactive Weak Reactive Control (test code = Weak Reactive Control) Weak Reactive Non-Reactive Control (test c ode = Non-Reactive Control) Non-Reactive Lot # (test code = Lot #) [id number] N Expiration Dt (test code = Expiration Dt) 04-23-2020 N XR Shoulder Complete 2+ Views [id number] 15:41:25Patient: BHUMIKA JONES Date/Time01/07/2019 15:25 CDTReason for Examleft shoulder pain;Pain (please specify)ReportDictation location R 16Left shoulder 3 viewsHISTORY: PainCOMMENT:Frontal radiographs of patient's left shoulder were obtained. The humerus was in internal and external rotation.The examination demonstrates no radiographic evidence for acute or destructive bonychange. The glenohumeral joint space is unremarkable. The AC joint is slightly narrowed. There are multiple radiopacities adjacent to the greater tuberosity suggestive of rotator cuff tendinopathy.IMPRESSION:1. No acute findings of the left shoulder.2. Findings suggestive of rotator cuff tendinopathy. Final Dictated by: MD Paige Phebe CDictated DT/TM: 01/07/2019 3:39 pmSigned by: MD Paige Phebe CSigned (Electronic Signature): 01/07/2019 3:41 pmThyroid Stimulating [id number] 03:07:04* Test Item Value Reference Range Interpretation Comme nts TSH (test code = TSH) 9.650 mIU/mL 0.270-4.200 H Lipid [id number] 03:07:03* Test Item Value Reference Range Interpretation Comme nts Cholesterol Total (test code = Cholesterol Total) 199 mg/dL 0-200 RISK OF HEART DISEASEPublished by [employer] Heart Association Analyte Optimal Borderline Increased RiskCHOL <200 200-239 >240TRIG <150 150-199 >200HDL Male >60 <40HDL Female >60 <50LDL <100 130-159 >160LDL Near optimal is 100-129 Triglycerides (test code = Triglycerides) 86 mg/dL 9-200 HDL (test code = HDL) 72 mg/dL 50-60 H LDL (test code = LDL) 110 mg/dL 0-130 The equation being used in this calculation is LDL = (Chol - HDL) - (Trig / 5) VLDL (test code = VLDL) 17 mg/dL 5-40 The equation vania ng used in this calculation is VLDL = Trig / 5 Chol/HDL (test code = Chol/HDL) 2.8 ratio 0.0-4.4 LDL/HDL Ratio (test code = LDL/HDL Ratio) 2 N The equati on being used in this calculation is LDL/HDL Ratio=LDL Calc/HDL Chol HCG Qualitative [id number] 02:33:13* Test Item Value Reference Range Interpretation Comme nts HCG, Serum Qual (test code = HCG, Serum Qual) Negative Lot # (test code = Lot #) [id number] N Expiration Dt (test code = Expiration Dt) 2020-04-23 N Neg Control (test code = Neg Control) Negative Pos Control (test code = Pos Control) Positive Internal QC (test code = Int ernal QC) Acceptable Drugs of Abuse Urine [id number] 18:58:11* Test Item Value Reference Range Interpretation Comme nts Amphetamine Screen Ur (test code = Amphetamine Screen Ur) Negative Negative For diagnostic purposes only. Positive results should always be assessed in conjunction with a patient's medical history. Barbiturate Screen Ur (test code = Barbiturate Screen Ur) Negative Negative Benzodiazepines Ur (test code = Benzodiazepines Ur) Negative Negative Cocaine Screen Ur (test code = Cocaine Screen Ur) Negative Negative U Methadone (test code = U Methadone) Negative Negative Opiate Screen Ur (test code = Opiate Screen Ur) Negative Negative U PCP Scrn (test code = U PCP Scrn) Negative Negative U Propoxyphene (test code = U Propoxyphene) Negative Negative Cannabinoid Screen Ur (test code = Cannabinoid Screen Ur) Negative Negative Alcohol [id number] 18:47:34* Test Item Value Reference Range Interpretation Comme nts Ethanol Level (test code = Ethanol Level) <0.00 g/dL 0.00-0.01 Intoxicated 0.08 0 g/dL or more Ethanol Inst (test code = Ethanol Inst) <0 N Comprehensive Metabolic [id number] 18:47:33* Test Item Value Reference Range Interpretation Comme nts Sodium Level (test code = So dium Level) 142.0 mmol/L 135.0-145.0 Potassium Level (test code = Potassium Level) 4.5 mmol/L 3.5-5.1 Chloride Level (test code = Chloride Level) 105 mmol/L 98-105 CO2 (test code = CO2) 26 mmol/L 22-29 Anion Gap (test code = Anion Gap) 11 mmol/L 7-16 BUN (test code = BUN) 12.20 mg/dL 6.00-20.00 Creatinine Level (test code = Creatinine Level) 0.50 mg/dL 0.50-0.90 BUN/Creat Ratio (test code = BUN/Creat Ratio) 24 N Glucose Level (test code = Glucose Level) 81 mg/dL 70-115 Calcium Level (test code = Calcium Level) 9.3 mg/dL 8.3-10.5 Alk Phos (test code = Alk Phos) 59 U/L 35-104 Bilirubin Total (test code = Bilirubin Total) 0.2 mg/dL 0.1-0.9 Albumin Level (test code = Albumin Level) 3.6 g/dL 3.5-5.2 Protein Total (test code = Protein Total) 7.3 g/dL 6.4-8.3 ALT (test code = ALT) 11 U/L 1-33 AST (test code = AST) 21 U/L 1-32 Globulin (test code = Globulin) 3.7 g/dL 2.9-3.1 H A/G Ratio (test code = A/G Ratio) 1.0 ratio N Comprehensive Metabolic [id number] 18:47:33* Test Item Value Reference Range Interpretation Comme nts Sodium Level (test code = Sodium Level) 142.0 mmol/L 135.0-145.0 Potassium Level (test code = Potassium Level) 4.5 mmol/L 3.5-5.1 Chloride Level (test code = Chloride Level) 105 mmol/L 98-105 CO2 (test code = CO2) 26 mmol/L 22-29 Anion Gap (test code = Anion Gap) 11 mmol/L 7-16 BUN (test code = BUN) 12.20 mg/dL 6.00-20.00 Creatinine Level (test code = Creatinine Level) 0.50 mg/dL 0.50-0.90 BUN/Creat Ratio (test code = BUN/Creat Ratio) 24 N Glucose Level (test code = Glucose Level) 81 mg/dL 70-115 Calcium Level (test code = Calcium Level) 9.3 mg/dL 8.3-10.5 Alk Phos (test code = Alk Phos) 59 U/L 35-104 Bilirubin Total (test code = Bilirubin Total) 0.2 mg/dL 0.1-0.9 Albumin Level (test code = Albumin Level) 3.6 g/dL 3.5-5.2 Protein Total (test code = Protein Total) 7.3 g/dL 6.4-8.3 ALT (test code = ALT) 11 U/L 1-33 AST (test code = AST) 21 U/L 1-32 Globulin (test code = Globulin) 3.7 g/dL 2.9-3.1 H A/G Ratio (test code = A/G Ratio) 1.0 ratio N eGFR AA (test code = eGFR AA) >60 mL/min/1.73 m2 N eGFR (estimated Glomerular Filtration Rate) is an estimated value, calculated from the patient's serum creatinine using the MDRD equation. It is NOT the patient's actual GFR. The eGFR provides a more clinically useful measure of kidney disease than serum creatinine alone.This calculation takes sex and race into account, if the information is provided. If the race is not provided, and the patient is -British, multiply by 1.212. If sex is not provided, and the patient is female, multiply by 0.742. Results for patients <18 years of age have not been validated by the MDRD study and should be interpreted with caution. eGFR Result Interpretation:eGFR > or = 60 is in the Normal RangeeGFR < 60 may mean kidney diseaseeGFR < 15 may mean kidney failure Ranges recommended by the National Kidney Foundation, http://nkdep.nih.gov Comprehensive Metabolic [id number] 18:47:33* Test Item Value Reference Range Interpretation Comme nts Sodium Level (test code = Sodium Level) 142.0 mmol/L 135.0-145.0 Potassium Level (test code = Potassium Level) 4.5 mmol/L 3.5-5.1 Chloride Level (test code = Chloride Level) 105 mmol/L 98-105 CO2 (test code = CO2) 26 mmol/L 22-29 Anion Gap (test code = Anion Gap) 11 mmol/L 7-16 BUN (test code = BUN) 12.20 mg/dL 6.00-20.00 Creatinine Level (test code = Creatinine Level) 0.50 mg/dL 0.50-0.90 BUN/Creat Ratio (test code = BUN/Creat Ratio) 24 N Glucose Level (test code = Glucose Level) 81 mg/dL 70-115 Calcium Level (test code = Calcium Level) 9.3 mg/dL 8.3-10.5 Alk Phos (test code = Alk Phos) 59 U/L 35-104 Bilirubin Total (test code = Bilirubin Total) 0.2 mg/dL 0.1-0.9 Albumin Level (test code = Albumin Level) 3.6 g/dL 3.5-5.2 Protein Total (test code = Protein Total) 7.3 g/dL 6.4-8.3 ALT (test code = ALT) 11 U/L 1-33 AST (test code = AST) 21 U/L 1-32 Globulin (test code = Globulin) 3.7 g/dL 2.9-3.1 H A/G Ratio (test code = A/G Ratio) 1.0 ratio N eGFR AA (test code = eGFR AA) >60 mL/min/1.73 m2 N eGFR (estimated Glomerular Filtration Rate) is an estimated value, calculated from the patient's serum creatinine using the MDRD equation. It is NOT the patient's actual GFR. The eGFR provides a more clinically useful measure of kidney disease than serum creatinine alone.This calculation takes sex and race into account, if the information is provided. If the race is not provided, and the patient is -British, multiply by 1.212. If sex is not provided, and the patient is female, multiply by 0.742. Results for patients <18 years of age have not been validated by the MDRD study and should be interpreted with caution. eGFR Result Interpretation:eGFR > or = 60 is in the Normal RangeeGFR < 60 may mean kidney diseaseeGFR < 15 may mean kidney failure Ranges recommended by the National Kidney Foundation, http://nkdep.nih.gov eGFR Non-AA (test code = eGFR Non-AA) >60.00 mL/min/1.73 m2 N eGFR (estimated Glomerular Filtration Rate) is an estimated value, calculated from the patient's serum creatinine using the MDRD equation. It is NOT the patient's actual GFR. The eGFR provides a more clinically useful measure of kidney disease than serum creatinine alone.This calculation takes sex and race into account, if the information is provided. If the race is not provided, and the patient is -British, multiply by 1.212. If sex is not provided, and the patient is female, multiply by 0.742. Results for patients <18 years of age have not been validated by the MDRD study and should be interpreted with caution. eGFR Result Interpretation:eGFR > or = 60 is in the Normal RangeeGFR < 60 may mean kidney diseaseeGFR < 15 may mean kidney failure Ranges recommended by the National Kidney Foundation, http://nkdep.nih.gov Complete Blood Count with [id number] 18:15:23* Test Item Value Reference Range Interpretation Comme nts WBC (test code = WBC) 5.2 x10 4.4-10.5 RBC (test code = RBC) 3.74 x10 3.75-5.20 L Hgb (test code = Hgb) 9.9 g/dL 12.2-14.8 L MCV (test code = MCV) 83.70 fL 80.00-100.00 Hct (test code = Hct) 31.3 % 36.5-44.4 L MCHC (test code = MCHC) 31.60 g/dL 32.00-37.50 L MCH (test code = MCH) 26.5 pg 27.0-32.5 L RDW CV (test code = RDW CV) 17.8 % 11.5-14.5 H Platelets (test code = Platelets) 157.0 x10 140.0-440.0 MPV (test code = MPV) 11.3 fL N Slide Review (test code = Slide Review) Auto Auto Result crea isabel by GL_SJM_SLIDE_REV_AUTO nRBC (test code = nRBC) 0 N NRBC Abs (test code = NRBC Abs) 0.00 x10 N IPF (test code = IPF) 0 % N Automated [id number] 18:15:23* Test Item Value Reference Range Interpretation Comme nts Neutro Auto (test code = Sunny tro Auto) 42.1 % 36.0-70.0 Lymph Auto (test code = Lymph Auto) 40.0 % 12.0-44.0 Wake Auto (test code = Wake Auto) 12.2 % 0.0-11.0 H Eos, Auto (test code = Eos, Auto) 4.9 % 0.0-7.0 Basophil Auto (test code = B asophil Auto) 0.6 % 0.0-2.0 Neutro Absolute (test code = Neutro Absolute) 2.2 x10 1.6-7.4 Lymph Absolute (test code = Lymph Absolute) 2.06 x10 .50-4.60 Wake Absolute (test code = M richa Absolute) .63 x10 .00-1.20 Eos Absolute (test code = Eo s Absolute) 0.25 x10 0.00-0.74 Baso Absolute (test code = B aso Absolute) 0.03 x10 0.00-0.21 IG [id number] 18:15:23* Test Item Value Reference Range Interpretation Comme nts IG (test code = IG) 0.2 % 0.0-5.0 IG Abs (test code = IG Abs) 0 x10 N VALPROIC [id number] 00:00:00* Test Item Value Reference Range Interpretation Comme nts VALPROIC ACID (test code = 3025) 69.8 UG/ML VALPROIC [id number] 00:00:00* Test Item Value Reference Range Interpretation Comme nts VALPROIC ACID (test code = 3025) 69.8 UG/ML URINE CULTURE, NO [id number] 00:00:00* Test Item Value Reference Range Interpretation Comme nts URINE CULTURE, NO SENS (test code = 80953) SPECIMEN NUMBER: [id number] URINE CULTURE, NO [id number] 00:00:00* Test Item Value Reference Range Interpretation Comme nts URINE CULTURE, NO SENS (test code = 56250) SPECIMEN NUMBER: [id number] IRON BINDING CAPACITY AND IRON AND % [id number] 00:00:00* Test Item Value Reference Range Interpretation Comme nts IRON, SERUM (test code = 2222) 42 UG/DL UNSATURATED IBC (test code = 28437) 279 UG/DL CALC TOTAL IBC (test code = 2077) 321 UG/DL CALC % IRON SAT (test code = 2079) 13 % IRON BINDING CAPACITY AND IRON AND % [id number] 00:00:00* Test Item Value Reference Range Interpretation Comme nts IRON, SERUM (test code = 2222) 42 UG/DL UNSATURATED IBC (test code = 92662) 279 UG/DL CALC TOTAL IBC (test code = 2077) 321 UG/DL CALC % IRON SAT (test code = 2079) 13 % [id number] 00:00:00* Test Item Value Reference Range Interpretation Comme nts FERRITIN (test code = 2075) 15 NG/ML [id number] 00:00:00* Test Item Value Reference Range Interpretation Comme nts FERRITIN (test code = 2075) 15 NG/ML [id number] 00:00:00* Test Item Value Reference Range Interpretation Comme nts TRANSFERRIN (test code = 4936) 269 MG/DL [id number] 00:00:00* Test Item Value Reference Range Interpretation Comme nts TRANSFERRIN (test code = 4936) 269 MG/DL FOLIC [id number] 00:00:00* Test Item Value Reference Range Interpretation Comme nts FOLIC ACID (test code = 2695) 5.4 UG/L FOLIC [id number] 00:00:00* Test Item Value Reference Range Interpretation Comme nts FOLIC ACID (test code = 2695) 5.4 UG/L CULTURE, URINE [ADDED]2018-06-12 00:00:00* Test Item Value Reference Range Interpretation Comme nts CULTURE, URINE (test code = 97380) SPECIMEN NUMBER: [id number] CULTURE, URINE [ADDED]2018-06-12 00:00:00* Test Item Value Reference Range Interpretation Comme nts CULTURE, URINE (test code = 31324) SPECIMEN NUMBER: [id number] VALPROIC [id number] 00:00:00* Test Item Value Reference Range Interpretation Comme nts VALPROIC ACID (test code = 3025) 100.9 UG/ML VALPROIC [id number] 00:00:00* Test Item Value Reference Range Interpretation Comme nts VALPROIC ACID (test code = 3025) 100.9 UG/ML CBC W/AUTO [id number] 00:00:00* Test Item Value Reference Range Interpretation Comme nts WBC (test code = 1001) 4.7 K/UL [...] code = 1015) 184 K/UL CBC W/AUTO [id number] 00:00:00* Test Item Value Reference Range Interpretation Comme nts WBC (test code = 1001) 4.7 K/UL [...] code = 1015) 184 K/UL CBC W/AUTO [id number] 00:00:00* Test Item Value Reference Range Interpretation Comme nts WBC (test code = 1001) 4.7 K/UL [...] code = 1015) 184 K/UL COMPREHENSIVE METABOLIC [id number] 00:00:00* Test Item Value Reference Range Interpretation Comme nts GLUCOSE (test code = 2217) 86 MG/DL BUN (test code = 2208) 16 MG/DL CREATININE (test code = 2214) 0.45 MG/DL eGFR AMER. (test cod e = 84511) 141 ML/MIN/1.73 eGFR NON- AMER. (test code = 02728) 122 ML/MIN/1.73 CALC BUN/CREAT (test code = 2235) 36 RATIO SODIUM (test code = 2231) 136 MEQ/L POTASSIUM (test code = 2228) 4.6 MEQ/L CHLORIDE (test code = 2215) 101 MEQ/L CARBON DIOXIDE (test code = 2206) 25 MEQ/L CALCIUM (test code = 2209) 8.7 MG/DL PROTEIN, TOTAL (test code = 2229) 6.6 G/DL ALBUMIN (test code = 2201) 3.5 G/DL CALC GLOBULIN (test code = 2240) 3.1 G/DL CALC A/G RATIO (test code = 2234) 1.1 RATIO BILIRUBIN, TOTAL (test code = 2207) <0.2 MG/DL ALKALINE PHOSPHATASE (test code = 2204) 76 U/L AST (test code = 2218) 24 U/L ALT (test code = 2219) 17 U/L COMPREHENSIVE METABOLIC [id number] 00:00:00* Test Item Value Reference Range Interpretation Comme nts GLUCOSE (test code = 2217) 86 MG/DL BUN (test code = 2208) 16 MG/DL CREATININE (test code = 2214) 0.45 MG/DL eGFR AMER. (test cod e = 76937) 141 ML/MIN/1.73 eGFR NON- AMER. (test code = 74805) 122 ML/MIN/1.73 CALC BUN/CREAT (test code = 2235) 36 RATIO SODIUM (test code = 2231) 136 MEQ/L POTASSIUM (test code = 2228) 4.6 MEQ/L CHLORIDE (test code = 2215) 101 MEQ/L CARBON DIOXIDE (test code = 2206) 25 MEQ/L CALCIUM (test code = 2209) 8.7 MG/DL PROTEIN, TOTAL (test code = 2229) 6.6 G/DL ALBUMIN (test code = 2201) 3.5 G/DL CALC GLOBULIN (test code = 2240) 3.1 G/DL CALC A/G RATIO (test code = 2234) 1.1 RATIO BILIRUBIN, TOTAL (test code = 2207) <0.2 MG/DL ALKALINE PHOSPHATASE (test code = 2204) 76 U/L AST (test code = 2218) 24 U/L ALT (test code = 2219) 17 U/L PAP TEST, THINPREP, [id number] 00:00:00* Test Item Value Reference Range Interpretation Comme nts SOURCE: (test code = 8001) Cervical/Endocervical SLIDES: (test code = 8011) 1 LMP: (test code = 8021) 03/2017 SPECIMEN ADEQUACY: (test code = 96806) (NOTE) INTERPRETATION: (test code = 84500) NO EPITHELIAL ABNORMALITY SEE BELOW TRAVELING REPAIR ACCOUNTANT: (test code = 8101) KANA Merida(ASCP)IAC LOCATION: (test code = 38027) (NOTE) CPT: (test code = 8140) (NOTE) PAP TEST, THINPREP, [id number] 00:00:00* Test Item Value Reference Range Interpretation Comme nts SOURCE: (test code = 8001) Cervical/Endocervical SLIDES: (test code = 8011) 1 LMP: (test code = 8021) 03/2017 SPECIMEN ADEQUACY: (test code = 73200) (NOTE) INTERPRETATION: (test code = 30112) NO EPITHELIAL ABNORMALITY SEE BELOW TRAVELING REPAIR ACCOUNTANT: (test code = 8101) KANA Merida(ASCP)IAC LOCATION: (test code = 65907) (NOTE) CPT: (test code = 8140) (NOTE) HPV HIGH RISK WITH GENOTYPE, [id number] 00:00:00* Test Item Value Reference Range Interpretation Comme nts HPV HIGH RISK INTERP (test c ode = 87658) NEGATIVE HPV 16 (test code = 82418) NEGATIVE HPV 18 (test code = 16689) NEGATIVE HPV, HR, OTHER GENOTYPES (te st code = 62834) NEGATIVE HPV HIGH RISK WITH GENOTYPE, [id number] 00:00:00* Test Item Value Reference Range Interpretation Comme nts HPV HIGH RISK INTERP (test c ode = 75482) NEGATIVE HPV 16 (test code = 40389) NEGATIVE HPV 18 (test code = 55194) NEGATIVE HPV, HR, OTHER GENOTYPES (te st code = 86567) NEGATIVE GC AND CHLAMYDIA AMPLIFIED, [id number] 00:00:00* Test Item Value Reference Range Interpretation Comme nts GONORRHEA, TMA (test code = 74416) NEGATIVE CHLAMYDIA, TMA (test code = 40024) NEGATIVE HIV AB/AG COMBO RFLX [id number] 00:00:00* Test Item Value Reference Range Interpretation Comme nts HIV 1/2 4TH GEN, RFLX CONF ( test code = 3514) NON-REACTIVE GC AND CHLAMYDIA AMPLIFIED, [id number] 00:00:00* Test Item Value Reference Range Interpretation Comme nts GONORRHEA, TMA (test code = 45626) NEGATIVE CHLAMYDIA, TMA (test code = 37371) NEGATIVE HIV AB/AG COMBO RFLX [id number] 00:00:00* Test Item Value Reference Range Interpretation Comme nts HIV 1/2 4TH GEN, RFLX CONF ( test code = 3514) NON-REACTIVE COMPREHENSIVE METABOLIC [id number] 00:00:00* Test Item Value Reference Range Interpretation Comme nts GLUCOSE (test code = 2217) 90 MG/DL BUN (test code = 2208) 21 MG/DL CREATININE (test code = 2214) 0.42 MG/DL eGFR AMER. (test cod e = 92175) 145 ML/MIN/1.73 eGFR NON- AMER. (test code = 17386) 126 ML/MIN/1.73 CALC BUN/CREAT (test code = 2235) 50 RATIO SODIUM (test code = 2231) 139 MEQ/L POTASSIUM (test code = 2228) 4.0 MEQ/L CHLORIDE (test code = 2215) 99 MEQ/L CARBON DIOXIDE (test code = 2206) 24 MEQ/L CALCIUM (test code = 2209) 9.3 MG/DL PROTEIN, TOTAL (test code = 2229) 7.1 G/DL ALBUMIN (test code = 2201) 3.7 G/DL CALC GLOBULIN (test code = 2240) 3.4 G/DL CALC A/G RATIO (test code = 2234) 1.1 RATIO BILIRUBIN, TOTAL (test code = 2207) 0.1 MG/DL ALKALINE PHOSPHATASE (test code = 2204) 54 U/L AST (test code = 2218) 11 U/L ALT (test code = 2219) <5 U/L COMPREHENSIVE METABOLIC [id number] 00:00:00* Test Item Value Reference Range Interpretation Comme nts GLUCOSE (test code = 2217) 90 MG/DL BUN (test code = 2208) 21 MG/DL CREATININE (test code = 2214) 0.42 MG/DL eGFR AMER. (test cod e = 96730) 145 ML/MIN/1.73 eGFR NON- AMER. (test code = 72894) 126 ML/MIN/1.73 CALC BUN/CREAT (test code = 2235) 50 RATIO SODIUM (test code = 2231) 139 MEQ/L POTASSIUM (test code = 2228) 4.0 MEQ/L CHLORIDE (test code = 2215) 99 MEQ/L CARBON DIOXIDE (test code = 2206) 24 MEQ/L CALCIUM (test code = 2209) 9.3 MG/DL PROTEIN, TOTAL (test code = 2229) 7.1 G/DL ALBUMIN (test code = 2201) 3.7 G/DL CALC GLOBULIN (test code = 2240) 3.4 G/DL CALC A/G RATIO (test code = 2234) 1.1 RATIO BILIRUBIN, TOTAL (test code = 2207) 0.1 MG/DL ALKALINE PHOSPHATASE (test code = 2204) 54 U/L AST (test code = 2218) 11 U/L ALT (test code = 2219) <5 U/L LIPID [id number] 00:00:00* Test Item Value Reference Range Interpretation Comme nts CHOLESTEROL (test code = 2210) 186 MG/DL TRIGLYCERIDES (test code = 2232) 131 MG/DL HDL CHOLESTEROL (test code = 2220) 67 MG/DL CALC LDL CHOL (test code = 2237) 93 MG/DL RISK RATIO LDL/HDL (test cod e = 2238) 1.39 RATIO LIPID [id number] 00:00:00* Test Item Value Reference Range Interpretation Comme nts CHOLESTEROL (test code = 2210) 186 MG/DL TRIGLYCERIDES (test code = 2232) 131 MG/DL HDL CHOLESTEROL (test code = 2220) 67 MG/DL CALC LDL CHOL (test code = 2237) 93 MG/DL RISK RATIO LDL/HDL (test cod e = 2238) 1.39 RATIO CBC W/AUTO [id number] 00:00:00* Test Item Value Reference Range Interpretation Comme nts WBC (test code = 1001) 5.1 K/UL [...] code = 1015) 152 K/UL CBC W/AUTO [id number] 00:00:00* Test Item Value Reference Range Interpretation Comme nts WBC (test code = 1001) 5.1 K/UL [...] code = 1015) 152 K/UL CBC W/AUTO [id number] 00:00:00* Test Item Value Reference Range Interpretation Comme nts WBC (test code = 1001) 5.1 K/UL [...] (test code = 1015) 152 K/UL HEMOGLOBIN [id number] 00:00:00* Test Item Value Reference Range Interpretation Comme nts HEMOGLOBIN A1c (test code = 48043) 5.2 % HEMOGLOBIN [id number] 00:00:00* Test Item Value Reference Range Interpretation Comme nts HEMOGLOBIN A1c (test code = 04933) 5.2 % HEMOGLOBIN [id number] 00:00:00* Test Item Value Reference Range Interpretation Comme nts HEMOGLOBIN A1c (test code = 53089) 5.2 % [id number] 00:00:00* Test Item Value Reference Range Interpretation Comme nts TSH (test code = 2821) 2.020 UIU/ML [id number] 00:00:00* Test Item Value Reference Range Interpretation Comme nts TSH (test code = 2821) 2.020 UIU/ML [id number] 00:00:00* Test Item Value Reference Range Interpretation Comme nts TSH (test code = 2821) 2.020 UIU/ML Notes Date/Time Note Provider Source 2022-10-11 12:29:00 [id number]:29:00 [facility]ospitalist Discharge SummaryREPORT#:[id number] REPORT STATUS: SignedDATE:10/11/22 TIME: 1229 PATIENT: ROBERTBAI UNIT #: [id number]#: [id number] ROOM[facility]BED: [facility]DOB: [birth year] AGE: 47 SEX: F ATTEND: Marly Mendenhall [facility] AUTHOR: Marly Mendenhall MD * ALL edits or amendments must be made on the electronic/computer document * General InformationDischarge date: 09/19/22Discharge diagnosis:Metabolic encephalopathyHyponatremiaHistory of seizure disorderHospital course:This is a 47-year-old female with past medical history of schizophrenia seizure disorder she was brought into the ER because of altered mental status she had decreased responsiveness from her the patient this morning with the help of editor greeting card and she said that he lives with her mom in the house and she was bleeding from the mouth that is why she came to ER she was able to tell me her full name and birthday she says that she is not sure why she is here her affect was flat and monotonous tone currently does not seem to be completely altered but does have history of psych disorder schizophrenia so seems to be presenting with thatReported encephalopathy could be due to hyponatremia in the setting of restart Tegretol resolvedHistory of schizophrenia on Depakote and carbamazepineRecent onset of seizure-like activity with event occurred during EEG appear nonepilepticReviewed by neurology DC in stable condition Free Text DxA P NotesFree text DxA P notes:Hyponatremia asymptomaticRecheckDo a work-upContinue Ringer lactate 50 cc/h monitor electrolytes Metabolic encephalopathy questionable patient seems to be at baseline. With history of schizophreniaNeuro consultTreat underlying condition SchizophreniaContinue home medication once confirmed Seizure disorderContinue home medicationSeizure precaution DVT prophylaxisLovenoxAdvanced directive discussedMedication reviewed and reconciledFurther pending hospital course currently on one-to-one sitter can be DC'd laterthis afternoon if remains stable Med Rec Med RecDischarge meds:Continue taking these medications:carBAMazepine (TEGretol) 200 MG TAB 400 MILLIGRAM ORAL EVERY 12 HOURS. Qty = 120 DIVALPROEX ER (DEPAKOTE ER) 500 MG TAB.ER.24H 1,000 MILLIGRAM ORAL DAILY. Instructions: 2 TABS DAILY risperiDONE (RisperDAL) 3 MG TAB 3 MILLIGRAM ORAL DAILY. ObjectiveCardiovascular: regular rate rhythmRespiratory: decreased breath soundsAbdomen: softExtremities: moves all, normal capillary refill, normal range of motion, no edemaNeuro/CLERK GUIDE: altered mental status, alert Discharge Instructions PCPDischarge to: Home/Self CareAdditional Discharge Routines: PCP Follow-UpDiet: Resume Home Diet/FeedsActivity: As Tolerated Follow-up AppointmentsPCP follow-up: PCP: No Primary or Family Physician PCP follow up timeframe: In 6 days at 1230 RPT #:[id number] OF REPORTDSDischarge [id number]:29:00B.[id number] ailable for patient [id number]:30:16 [facility] 2022-09-18 17:27:00 [id number]:27:00 [facility])Electroencephalogram-EEGREPORT#:[id number] REPORT STATUS: SignedDATE:09/18/22 TIME: 1727 PATIENT: BHUMIKA JONES UNIT #: [id number]#: [id number] [address] [birth year] AGE: 47 SEX: F ATTEND: Marly Mendenhall [facility] AUTHOR: Nelia Parker MD * ALL edits or amendments must be made on the electronic/computer document * Procedure HPIRequesting clinician:selfMedications:Home Medications:Medication Dose/Rte/Freq Days Qty Entered Last Max Daily Dose Reviewed DIVALPROEX ER 1,000 MG PO DAILY 09/14/22 (DEPAKOTE ER) 1500Strength: 500 MG TAB.ER.24H risperiDONE (RisperDAL) 3 MG PO DAILY 09/14/22Strength: 3 MG TAB 1500 carBAMazepine (TEGretol) 400 MG PO Q12H 120 09/13/22Strength: 200 MG TAB 1326 Current Hospital Medications:Blood Formation,Coagulation Sig/Ksenia Start time Last Medication Dose Route Stop Time Status Admin Enoxaparin Sodium 30 MG Q12H 09/18 0900 AC 09/18 (LOVENOX) SUBQ 10/18 0901 0825 Cardiovascular Drugs Sig/Ksenia Start time Last Medication Dose Route Stop Time Status Admin Atorvastatin Calcium 40 MG BEDTIME 09/17 2100 AC 09/17 (LIPITOR) PO 10/17 2100 2145 Central Nervous System Agents Sig/Ksenia Start time Last Medication Dose Route Stop Time Status Admin Aspirin 81 MG DAILY 09/18 0900 AC 09/18 (ASPIRIN) PO 10/18 09 0823 Divalproex Sodium 1,000 MG DAILY 09/18 09 CAN (DEPAKOTE ER "INTERIANO" PO 10/18 09 (NF)) Levetiracetam 750 MG Q12HR 09/18 09 CAN (KEPPRA IV) IV 10/18 900 Sodium Chloride 92.5 ML (SODIUM CHLORIDE 0.9%) Levetiracetam 750 MG Q12HR 09/18 0900 DC 09/18 (KEPPRA IV) IV 10/18 900 0823 Risperidone 3 MG DAILY 09/18 899 CAN (RisperDAL) PO 10/18 900 Acetaminophen 650 MG Q6H PRN PRN 09/17 1929 AC (TYLENOL) RECTAL 10/17 1930 Carbamazepine 400 MG Q12H 09/17 1929 CAN (TEGretol) PO 10/17 1930 Lorazepam 1 MG Q6H PRN PRN 09/17 1929 AC (ATIVAN) IV 10/17 1930 Electrolytic, Caloric, And Xavi Sig/Ksenia Start time Last Medication Dose Route Stop Time Status Admin Lactated Ringer's 1,000 ML .Q20H 09/17 1930 AC 09/18 (LACTATED RINGERS) IV 10/17 1930 1523 Sodium Chloride 250 ML BOLUS PRN 09/17 1929 AC (NORMAL SALINE 250 IV ML) Gastrointestinal Drugs Sig/Ksenia Start time Last Medication Dose Route Stop Time Status Admin Docusate Sodium 100 MG BID PRN PRN 09/17 1929 AC (COLACE 100 MG CAP) PO 10/17 1930 HPI:See neuro note for further info. Patient is poor historian overall with historyof schizophrenia. Per the patient she started having those attacks of spells ofpassing out in the last month. No family available at the bedside to confirm whether the patient had previous seizure from before or not. An EEG was obtained given reported patient coming in with seizure-like activity without clear description of the semiology. Per the patient she would have chest pain and then she would pass out and faint. See neuro consult note for further info ProcedureDate of procedure: 09/18/22Procedure performed: routine EEGIndication: possible seizure prior to admission and reported confusionProcedure description:Study start time 14:31:21 Study duration 30 minutes Findings:18 channel EEG obtained and the patient was awake during the recording. I was present during the photic stimulation. Hyperventilation was omitted. Video EEGis not available at our facility. The patient did not go to sleep during the recording The background rhythm and reviewing on the transverse montage appear to be in the alpha frequency range. Technical limitation with loss of amplitude on the P3-01 and Fp2 F4 along with P4 O2 with impedance technical errors(issue with most of our current studies at our facility and not related to this patient only). Background appears symmetric, continuous and normal voltage in general overall aside from above. During the recording no epileptiform discharges detected during the recording. Photic stimulation was obtained and patient was tearful stated she wants to go to her mom and she wants to eat peanuts during it. At around 18 minutes and 59 seconds from the start of the recording the patient eyes were closed with shivering like movement in her arms and her jaw. Patient would not follow commands and would not open eyes (commands were obtained using a florist designer) with opening the eyes the patient would avoid eye contact and move her eyes out. After 1 minute the patient would open her eyes and was started following commands and would say mainly that she wants to go to her mom and she was crying. When she was asked what happened she stated she does not remember when she passed out. When asked whether it is similar to what happened to her at home when she is outside the hospital she said yes.During this event there was no epileptiform discharges and normal brainwave pattern seen. No postevent slowing detected. The EKG leads did not show any significant arrhythmia. During the event heart rate maintained as prior within the higher 50s/low 60s. Impression/Conclusion:Technically limited study overall as above, however no epileptiform discharges detected during the recording. An event reported above with patient unresponsive with minor tremulous like movement with patient stating that she did not know what happened and she felt she passed out suggestive of nonepileptic seizure-like activity.See neuro note for further info. Currently waiting for further information fromfamily regarding events. Unfortunately limited history is no provided information on what is the event semiology as outpatient except with the patientmentioned. at 1736 RPT #:[id number] OF REPORTDIDiagnostic [id number]:27:00B.[id number] ailable for patient dvggSCODDACRIZORGH5317-12-05Q74:37:11 [facility] 2022-09-18 14:24:00 [id number]:24:00 [facility]Ne[facility] Consultation NoteREPORT#:[id number] REPORT STATUS: SignedDATE:09/18/22 TIME: 1424 PATIENT: BHUMIKA JONES UNIT #: [id number]#: [id number] [address] [birth year] AGE: 47 SEX: F ATTEND: Marly Mendenhall [facility] AUTHOR: Nelia Parker MD * ALL edits or amendments must be made on the electronic/computer document * See AddendumHistory of Present Illness HPIRequesting clinician: see consult orderReason for consult:"AMS"Chief complaint:wanting to go home for her familyHPI:47-year-old female Barbadian speaking only who was brought into the ER for reported confusion. No records available from the ambulance or from the ER regarding the patient presentation there was report of possible " seizure-like activity". Consult was placed today for altered mental status Patient with history of schizophrenia, was first known to our hospital mid of last month as came into the hospital as ran out of her medicine and was having hallucination and was biting and hitting her head and causing self-harm to herself. The patient medication then was refilled and the patient was sent [facility]. Reportedly per the patient she did not like the assisted and does not like the food there and wants to be with her family close to her mom and close to her sister. She gave the number for her sister which was correct and I triedto contact them but the number was not answering. I called the phone number that was placed as home as well and left a voicemail as family did not answer. Per the patient she never had any spells of passing out or seizures prior to herbeing in the assisted. Per the patient she get upset that they are not letting her to go and see her family and per her she would feel chest pain and then she would faint and fall on the floor. She stated sometimes she might lose control of her bladder but had issues with controlling her bladder from before as well. She does recall yesterday being brought by ambulance per report. She stated shewas upset that they wanted to go to her family. Only ambulance records [facility] for patient who was brought in here [...] again yesterday. It appears that the patient started taking her medicine in the last few days. Unfortunately drug levels were not obtained but appear sodium was 125which could be associated with ingestion of carbamazepine but unclear if overdosed intentionally on her meds or not.Patient stated mainly that she wants to go home and she wants to eat peanuts andwas asking constantly to eat peanuts with flat affect. She stated talking aboutthis making her head hurts. She stated no other symptoms and she just wants to go home Per the patient she stated she does not smoke drink or use drugs. No family available to confirm the history and the assisted location is unknown to contact someone who witnessed the event History - Adult longitudinalAdditional medical history:Schizophrenia episodes of LOC reported as possible seizureAllergies:Coded Allergies:No Known Allergies (09/13/22) Review of Systems Free Text ROS NotesFree Text ROS Notes:ROS as above. She stated no pain aside from above and no nausea or vomiting. He stated no shortness of breath and no current chest pain. She stated no dizziness, weakness or numbness Objective GeneralVS:Last Documented: Result Date Time Pulse Ox 100 09/18 1126 B/P 116/83 09/18 1126 B/P Mean 94.0 09/18 112 O2 Delivery Room air 09/18 1126 Temp 98.2 09/18 1126 Pulse 64 09/18 112 Resp 18 09/18 112 FiO2 21 09/18 0915 PATIENT WEIGHT: Weight (lb): Weight (oz): Weight (kg): 72.000 MedicationsCurrent Home MedicationsDIVALPROEX ER (DEPAKOTE ER) 1,000 MG PO DAILY risperiDONE (RisperDAL) 3 MG PO DAILY carBAMazepine (TEGretol) 400 MG PO Q12H Active Meds + DC'd Last 24 HrsAspirin (ASPIRIN) 81 MG DAILY PO Divalproex Sodium (DEPAKOTE ER "INTERIANO" (NF)) 1,000 MG DAILY PO (CAN) Enoxaparin Sodium (LOVENOX) 30 MG Q12H SUBQ Levetiracetam (KEPPRA IV) 750 MG Q12HR IV (CAN) Sodium Chloride (SODIUM CHLORIDE 0.9%) 92.5 MLLevetiracetam (KEPPRA IV) 750 MG Q12HR IV (DC) Risperidone (RisperDAL) 3 MG DAILY PO (CAN) Atorvastatin Calcium (LIPITOR) 40 MG BEDTIME PO Acetaminophen (TYLENOL) 650 MG Q6H PRN PRN RECTAL Carbamazepine (TEGretol) 400 MG Q12H PO (CAN) Docusate Sodium (COLACE 100 MG CAP) 100 MG BID PRN PRN PO Lactated Ringer's (LACTATED RINGERS) 1,000 ML .Q20H IV Lorazepam (ATIVAN) 1 MG Q6H PRN PRN IV Sodium Chloride (NORMAL SALINE 250 ML) 250 ML BOLUS PRN IV Haloperidol Lactate (HALDOL) 2.5 MG X1ED STA IV (DC) Levetiracetam (Keppra 1000mg/100 ml) 100 ML X1ED STA IV (DC) Provider comments:Exam: Flat affect. Oriented to self, place, and time. Mainly stated interested in going home to her family and she wants to eat peanuts and eat good foodVisual field full bilateral without neglect. No gaze preference. No aphasia ordysarthria.PERRL, EOMI, no facial droop. Tongue midline.No head tenderness to palpationMoving all limbs purposefully 5/5 without drift. Tone within normal. Some positional tremor seen resolved with distraction.Sensation intact to light touch, temperature and pinprick bilateral without neglectNo nystagmus. No dysmetria all limbs.No tachypnea, with irregular heartbeat. Abdomen soft and nontender. No musculoskeletal discomfort to limb movement passive or activeNo rash seen on skin or arms ResultsFindings/Data:Laboratory Tests 09/18 09/18 09/18 09/18 1400 1359 1358 1126Chemistry Sodium (133 - 144 mmol/L) 127.0 L [...] 145 Specimen Appearance (1 NORMAL Index/DL) 1 NORMAL <2 MG Specimen Hemolysis (1 NORMAL Index/DL) 1 NORMAL <10 MG 09/18 09/18 09/17 09/17 0553 0553 4610 1519Chemistry Hemoglobin A1c (4.5 - 5.6 % IS-A1C) [...] 2.17 Specimen Appearance (1 NORMAL Index/DL) 1 NORMAL <2 MG Specimen Hemolysis (1 NORMAL Index/DL) [...] Negative Specimen Appearance (1 NORMAL Index/DL) 1 NORMAL <2 MG Specimen Hemolysis (1 NORMAL Index/DL) [...] (NEG) Urine Barbiturates (<200 NG/ML SCcutoff) NONE DETECTED (NEG) Valproic Acid (50.0 - 100.0 mcG/ML) 37.5 L Ur Phencyclidine Scrn (<25 NG/ML SCcutoff) NONE DETECTED (NEG) Ur Amphetamines Screen (<1000 NG/ML SCcutoff) NONE DETECTED (NEG) U Benzodiazepines Scrn (<200 NG/ML SCcutoff) POSITIVE H Urine Cocaine Screen (<300 NG/ML SCcutoff) NONE DETECTED (NEG) Urine Cannabinoids (<50 NG/ML SCcutoff) NONE DETECTED (NEG) Laboratory Tests 09/17 09/17 1519 1519 Urines Urine Color (YELLOW DESCRIPT) LIGHT-YELLOW Urine Appearance (CLEAR DESCRIPT) CLEAR Urine pH (4.6 - 8.0 pH UNITS) 6.5 Ur Specific Morrison (1.001 - 1.035 SG) 1.013 Urine Protein (<30 (1+) mg/dL) NEGATIVE (0) Urine Glucose (UA) (0 (NORMAL) mg/dL) NORMAL (0) Urine Ketones ((NEG) 0 mg/dL) TRACE Urine Blood (0 (NEG) mg/dL) NEGATIVE (0.00) Urine Nitrite (NEG SCREEN) NEGATIVE (0) Urine Bilirubin ((NEG) 0 mg/dL) NEGATIVE (0.0) Urine Urobilinogen (<2.0 (1+) mg/Dl) NORMAL (0) Ur Leukocyte Esterase ((NEG) 0 Leuk/mcL) NEGATIVE (0) Urine RBC (0 - 3 #RBC/HPF) 0-3 Urine WBC (0 - 3 #WBC/HPF) 0-3 Ur Squamous Epith Cells (NONE - SQepi /UL) RARE >0 Urine Osmolality (100 - 1400 mOsm/kg) 475 Ur Random Sodium (40 - 200 mmol/L) 93 Ur Random Potassium (25 - 125 mmol/L) 54.8 Ur Random Chloride (110 - 150 mmol/L) 164 H Radiology Data:Recent Impressions:CAT SCAN - CT HEAD/BRAIN W/O CONT 09/17 1834 Report Impression - Status: SIGNED Entered: 09/17/2022 190 IMPRESSION: Unremarkable CT examination of the brain without contrast. No significant change from the exam acquired earlier today. Impression By: Leonardo - Nati Hunt M.D. Diagnosis, Assessment PlanTime spent: Time spent on patient care (minutes): 110 >50% spent on counseling/coordination of care: yes Free Text DxA P NotesFree text DxA P notes:Reported encephalopathy could be due to hyponatremia in the setting of restart Tegretol resolvedHistory of schizophrenia on Depakote and carbamazepineRecent onset of seizure-like activity with event occurred during EEG appear nonepileptic -Event occurred during the EEG with patient stopped responding with mouth tremulous and hand tremulous movement. This event lasted for less than 1 minute. During the event open the eye manually and the patient would avoid to look at the examiner. Patient then woken up and stated she wants to go home andstart crying. She stated this is how she passed out at home as well when she feels anxious. During the EEG there is no epileptiform discharge detected and during the event there is no epileptiform discharges detected. Mildly review ofthe telemetry leads of that event but from EEG standpoint no epileptiform discharges detected an episode would be considered nonepileptic/psychogenic. Noclear report of the activity that the patient has as an outpatient with the patient only stated this is similar to her usual event where she would pass outKeppra would not be helpful and will discontinue and was not on it before.Tegretol level pending. Depakote level obtained and can restart. Regarding Tegretol can either restart as a low-dose 200 every 12 hours and then increase after 1 to 2 weeks to 400 every 12 hours with close monitoring of her sodium or she might need psychiatry consult to adjust her psych meds.Please call with questions or updates regarding patient. unless relevant update to patient hx, no w/up from my end currently is needed. at 150 Addendum 1: 09/18/22 1651 by Nelia Parker MD waiting on family member to confirm or give other parts of the history that might be helpful for her condition and whether had prior seizures in the past ornot. at 1654 RPT #:[id number] OF REPORTXIGaecjgylehid6015-75-59W44:24:00B.PDOC2 [id number] for patient wwpqDSQPVEFEZJSYBQ7580-79-29Q49:10:17 [facility] 11:44:00 [id number]:44:00 [facility] ([facility]AREHospitalist Progress NoteREPORT#:[id number] REPORT STATUS: SignedDATE:09/18/22 TIME: 1144 PATIENT: BHUMIKA JONES UNIT #: [id number]#: [id number] [address] [birth year] AGE: 47 SEX: F ATTEND: Marly Mendenhall [facility] AUTHOR: Marly Mendenhall MD * ALL edits or amendments must be made on the electronic/computer document * SubjectiveChief complaint:Altered mental statusHPI:This is a 47-year-old female with past medical history of schizophrenia seizure disorder she was brought into the ER because of altered mental status she had decreased responsiveness from her the patient this morning with the help of editor greeting card and she said that he lives with her mom in the house and she was bleeding from the mouth that is why she came to ER she was able to tell me her full name and birthday she says that she is not sure why she is here her affect was flat and monotonous tone currently does not seem to be completely altered but does have history of psych disorder schizophrenia so seems to be presenting with that Review of SystemsAll systems rev neg: except as noted Objective GeneralVS/I O:Vital Signs: Date Time Temp Pulse Resp B/P [...] (lb): Weight (oz): Weight (kg): 72.000 Physical ExamGeneral appearance: alert, awakeCardiovascular: regular rate rhythmRespiratory: decreased breath soundsAbdomen: softExtremities: moves all, normal capillary refill, normal range of motion, no edemaNeuro/CLERK GUIDE: altered mental status, alert Diagnosis, Assessment Plan Free Text DxA P NotesFree text DxA P notes:Hyponatremia asymptomaticRecheckDo a work-upContinue Ringer lactate 50 cc/h monitor electrolytes Metabolic encephalopathy questionable patient seems to be at baseline. With history of schizophreniaNeuro consultTreat underlying condition SchizophreniaContinue home medication once confirmed Seizure disorderContinue home medicationSeizure precaution DVT prophylaxisLovenoxAdvanced directive discussedMedication reviewed and reconciledFurther pending hospital course currently on one-to-one sitter can be DC'd laterthis afternoon if remains stable at 1147 RPT #:[id number] OF REPORTPRProgress acln4958-06-43N58:44:00B.[id number] able for patient kvfmLRUWCZMYNHJBQP2471-67-87R67:47:26 [facility] 2022-09-18 01:06:00 [id number]:06:00 [facility] ([facility])Hospitalist History PhysicalREPORT#:[id number] REPORT STATUS: SignedDATE:09/18/22 TIME: 0106 PATIENT: BHUMIKA JONES UNIT #: [id number]#: [id number] [address] [birth year] AGE: 47 SEX: F ATTEND: Marshall Orellana [facility] AUTHOR: Nelia Moffett MD * ALL edits or amendments must be made on the electronic/computer document * History of Present Illness HPIChief complaint:Altered mental statusPCP:PCP: No Primary or Family Physician HPI:This is a 47-year-old female with past medical history of schizophrenia seizure disorder she was brought into the ER because of altered mental status she had decreased responsiveness from her baseline patient not a good historian I tried to elicit some history from the patient while translater so history is mostly from staff and from the chart no history of nausea vomiting diarrhea abdominal pain hematemesis melena blood in stool History Past Medical Surgical HxPatient History: 1. Psychosis 2. Seizure-like activity 3. Nonadherence to medication 4. UTI (urinary tract infection) 5. Seizure disorder 6. Anxiety 7. Homeless 8. History of seizures Additional medical history:Schizophrenia seizure disorderAdditional surgical history:Noncontributory Family HistoryAdditional family history:Unable to obtain Social HistoryDrug use: Denies recreational drugsSmoking status for patients 13 years old or older: Never SmokerOther social history: Homeless Medication/Allergy-Vaccine HxMedications:Laboratory Tests: 09/17 09/17 09/17 1934 1850 1519 [...] L Specimen Appearance (1 NORMAL Index/DL) 1 NORMAL <2 MG Specimen Hemolysis (1 NORMAL Index/DL) 4 SMALL 50-200 MG H Toxicology Urine Opiates Screen (<300 NG/ML SCcutoff) NONE DETECTED (NEG) Urine Barbiturates (<200 NG/ML SCcutoff) NONE DETECTED (NEG) Ur Phencyclidine Scrn (<25 NG/ML SCcutoff) NONE DETECTED (NEG) Ur Amphetamines Screen (<1000 NG/ML SCcutoff) NONE DETECTED (NEG) U Benzodiazepines Scrn (<200 NG/ML SCcutoff) POSITIVE H Urine Cocaine Screen (<300 NG/ML SCcutoff) NONE DETECTED (NEG) Urine Cannabinoids (<50 NG/ML SCcutoff) NONE DETECTED (NEG) Urines Urine Color (YELLOW DESCRIPT) LIGHT-YELLOW Urine Appearance (CLEAR DESCRIPT) CLEAR Urine pH (4.6 - 8.0 pH UNITS) 6.5 Ur Specific Morrison (1.001 - 1.035 SG) 1.013 Urine Protein (<30 (1+) mg/dL) NEGATIVE (0) Urine Glucose (UA) (0 (NORMAL) mg/dL) NORMAL (0) Urine Ketones ((NEG) 0 mg/dL) TRACE Urine Blood (0 (NEG) mg/dL) NEGATIVE (0.00) Urine Nitrite (NEG SCREEN) NEGATIVE (0) Urine Bilirubin ((NEG) 0 mg/dL) NEGATIVE (0.0) Urine Urobilinogen (<2.0 (1+) mg/Dl) NORMAL (0) Ur Leukocyte Esterase ((NEG) 0 Leuk/mcL) NEGATIVE (0) Urine RBC (0 - 3 #RBC/HPF) 0-3 Urine WBC (0 - 3 #WBC/HPF) 0-3 Ur Squamous Epith Cells (NONE - SQepi /UL) RARE >0 09/17 1518 Chemistry Serum , Qual (NEG SCREEN) Negative Microbiology: Date/Time Procedure - Status Source Growth 09/17 2157 MRSA Screen - RECD NASAL Recent Impressions:CAT SCAN - CT HEAD/BRAIN W/O CONT 09/17 1835 Report Impression - Status: SIGNED Entered: 09/17/2022 190 IMPRESSION: Unremarkable CT examination of the brain without contrast. No significant change from the exam acquired earlier today. Impression By: Leonardo - Nati Hunt M.D. Microbiology:09/17 2157 NASAL: MRSA Screen - RECD Active Meds + DC'd Last 24 HrsAspirin (ASPIRIN) 81 MG DAILY PO Divalproex Sodium (DEPAKOTE ER "INTERIANO" (NF)) 1,000 MG DAILY PO (CAN) Enoxaparin Sodium (LOVENOX) 30 MG Q12H SUBQ Risperidone (RisperDAL) 3 MG DAILY PO (CAN) Atorvastatin Calcium (LIPITOR) 40 MG BEDTIME PO Acetaminophen (TYLENOL) 650 MG Q6H PRN PRN RECTAL Carbamazepine (TEGretol) 400 MG Q12H PO (CAN) Docusate Sodium (COLACE 100 MG CAP) 100 MG BID PRN PRN PO Lactated Ringer's (LACTATED RINGERS) 1,000 ML .Q20H IV Lorazepam (ATIVAN) 1 MG Q6H PRN PRN IV Sodium Chloride (NORMAL SALINE 250 ML) 250 ML BOLUS PRN IV Haloperidol Lactate (HALDOL) 2.5 MG X1ED STA IV (DC) Levetiracetam (Keppra 1000mg/100 ml) 100 ML X1ED STA IV (DC) Recent Impressions:CAT SCAN - CT HEAD/BRAIN W/O CONT 09/17 1834 Report Impression - Status: SIGNED Entered: 09/17/20221901 IMPRESSION: Unremarkable CT examination of the brain without contrast. No significant change from the exam acquired earlier today. Impression By: Leonardo Hunt M.D. 09/18 0700 09/17 2300 09/17 1500 Intake Total Output Total Balance Patient 72 kg Weight Weight Estimated Measurement Method Home Medications:DIVALPROEX ER (DEPAKOTE ER) 1,000 MG PO DAILY risperiDONE (RisperDAL) 3 MG PO DAILY carBAMazepine (TEGretol) 400 MG PO Q12H Allergies:Coded Allergies:No Known Allergies (09/13/22) Review of SystemsUnable to obtain due to:Altered mental status OBJECTIVEVS/I O:Vital Signs Date Temp Pulse Resp B/P B/P Mean Pulse Ox FiO2 09/17 36.6-36.8 61-73 15-19 117-145/74-90 92-108.5 99-100 Last Documented: Result Date Time Pulse [...] Weight (kg): 72.000 BMI: 26.4 General appearance: awakeCardiovascular: regular rate rhythmRespiratory: decreased breath soundsAbdomen: softNeuro/CLERK GUIDE: altered mental status, alert Diagnosis, Assessment PlanFree Text A P:HyponatremiaDo a work-upContinue Ringer lactate 50 cc/h monitor electrolytes Metabolic encephalopathyNeuro watchTreat underlying condition SchizophreniaContinue home medication once confirmed Seizure disorderContinue home medicationSeizure precaution DVT prophylaxisLovenoxAdvanced directive discussedMedication reviewed and reconciledBefore midnightI will sign off at 6 AM today further management by incoming thereafter at 0110 RPT #:[id number] OF REPORTHPHistory and physical [id number]:06:00B.[id number] AVAvailable for patient [id number]:10:56 [facility] 2022-09-17 14:34:00 [id number] 27T14:34:00 [facility] HospitalEMERGENCY PROVIDER REPORTREPORT#:[id number] REPORT STATUS: SignedDATE:09/17/22 TIME: 1434 PATIENT: BHUMIKA JONES UNIT #: [id number]#: [id number] [address] 47 SEX: F PCP PHYS: No Primary or Family PhysicianSERVICE AUTHOR: Valentina Samayoa MD * ALL edits or amendments must be made on the electronic/computer document * HPI-General Illness Free Text HPI NotesFree Text HPI [id number] female presents after possible seizure episode at [facility], will assessment patient is not fully oriented, and cannot provide history of theevents of today when asked multiple times. Additional history limited as the patient is tearful and not fully oriented. I spoke to the patient's sister Lewis Chiang, phone #[phone] by phone, who reports the patient has been missing from home for 8 days. Reports when the patient is medically cleared they can come get the patient. Patient reportedly initially without medicationsat the [facility] PMH: Seizures, schizophrenia. GeneralInitial Greet Date/Time 09/17/22 1432 PresentationChief Complaint Altered mental status (possible seizure) Past Medical History - AdultStated Complaint SEIZUREAllergiesCoded Allergies:No Known Allergies (09/13/22) Home MedicationsActive ScriptscarBAMazepine (TEGretol) 400 MG PO Q12H carBAMazepine (TEGretol) 400 MG PO Q12H #120 TABS Prov: 09/13/22 Discontinued ScriptsrisperiDONE (RisperDAL) 3 MG PO BEDTIME risperiDONE (RisperDAL) 3 MG PO BEDTIME #30 TABS Prov: 09/13/22 DC: 09/14/22 1500 entry level accounting clerk correctionDIVALPROEX (GINA CALLES) 1,000 MG PO DAILY DIVALPROEX (GINA CALLES) 1,000 MG PO DAILY #60 TABS Prov: 09/13/22 DC: 09/14/22 1459 entry level accounting clerk correction Reported MedicationsDIVALPROEX ER (DEPAKOTE ER) 1,000 MG PO DAILY risperiDONE (RisperDAL) 3 MG PO DAILY Past Medical History:Reports: Seizure disorder. Physical Exam Vital SignsVital SignsFirst Documented: Result Date Time Pulse Ox 100 [...] of Vital Signs Reviewed Free Text PE NotesFree Text PE NotesGeneral/constitutional: Alert, mild distressHead: Normocephalic, grossly atraumaticEyes: Normal conjunctiva, no periorbital swelling or erythemaNeck: Supple, no swelling or massesEars/nose/throat: Moist mucous membranes, no facial swellingRespiratory: No respiratory distress, breath sounds equal bilaterally, no wheezes, no rales, no rhonchiCardiovascular: Normal rate, regular rhythm, no murmursAbdomen/GI: Soft, nontender, no guardingMusculoskeletal: no gross deformitySkin: dryNeurologic: Appropriately alert, oriented x2, ambulatory without assistancePsychiatric: Anxious and tearful, redirectable, cooperative Interpretation Diagnostics Lab Results InterpretationResultsLaboratory Tests 09/17/22 1519:[Embedded Image Not Available]Laboratory Tests: 09/17 09/17 1519 1519 Chemistry Sodium [...] L Specimen Appearance (1 NORMAL Index/DL) 1 NORMAL <2 MG Specimen Hemolysis (1 NORMAL Index/DL) 4 SMALL 50-200 MG H Toxicology Urine Opiates Screen (<300 NG/ML SCcutoff) NONE DETECTED (NEG) Urine Barbiturates (<200 NG/ML SCcutoff) NONE DETECTED (NEG) Ur Phencyclidine Scrn (<25 NG/ML SCcutoff) NONE DETECTED (NEG) Ur Amphetamines Screen (<1000 NG/ML SCcutoff) NONE DETECTED (NEG) U Benzodiazepines Scrn (<200 NG/ML SCcutoff) POSITIVE H Urine Cocaine Screen (<300 NG/ML SCcutoff) NONE DETECTED (NEG) Urine Cannabinoids (<50 NG/ML SCcutoff) NONE DETECTED (NEG) Urines Urine Color (YELLOW DESCRIPT) LIGHT-YELLOW Urine Appearance (CLEAR DESCRIPT) CLEAR Urine pH (4.6 - 8.0 pH UNITS) 6.5 Ur Specific Morrison (1.001 - 1.035 SG) 1.013 Urine Protein (<30 (1+) mg/dL) NEGATIVE (0) Urine Glucose (UA) (0 (NORMAL) mg/dL) NORMAL (0) Urine Ketones ((NEG) 0 mg/dL) TRACE Urine Blood (0 (NEG) mg/dL) NEGATIVE (0.00) Urine Nitrite (NEG SCREEN) NEGATIVE (0) Urine Bilirubin ((NEG) 0 mg/dL) NEGATIVE (0.0) Urine Urobilinogen (<2.0 (1+) mg/Dl) NORMAL (0) Ur Leukocyte Esterase ((NEG) 0 Leuk/mcL) NEGATIVE (0) Urine RBC (0 - 3 #RBC/HPF) [...] SCREEN) Negative Re-Evaluation MDM Free Text MDM NotesFree Text MDM Notes-Differential diagnosis: [Psychosis, postictal state, seizure, electrolyte abnormality metabolic encephalopathy schizophrenia]-External documents reviewed: [Discharge summary 09/15/2022 patient reportedly presented for medication refill, drowsy, admitted, ultimately discharged back [facility]]-My EKG interpretation: I directly visualized and interpreted the EKG during medical decision-makingMy interpretation: [Rate 67 regular intervals regular axis sinus rhythm no significant ST segment elevations or depressions nonspecific ST segment change Twave inversion aVL, EKG from 1930 hrs.]-My imaging interpretation: [n/a]-My review of imaging reports: [CT brain negative]-Labs reviewed and interpreted by me are significant for: [BMP with hyponatremia, LFTs unremarkable hCG negative lipase negative troponin negative CBC with no leukocytosis or anemia UDS positive for benzodiazepines likely iatrogenic, urinalysis not concerning for UTI]-Decision rules/scores evaluated: [n/a]-Treatment and Prescription drug management: [Keppra, Haldol given for seizure prevention and to facilitate work-up given patient's psychosis versus altered mental status]-ED course: [Patient presents via EMS tearful, altered, with possible psychosis versus postictal state versus encephalopathy, history limited from the patient we will plan for admission for further work-up]-Discussed case/patient with: [I discussed the case with the hospitalist, who agrees with plan to admit the patient. Also discussed case with EMS who broughtthe patient]-I considered admission for: [Altered mental status]-Disposition: [Admitted]-Problems and their severity/complexity: [Altered mental status]-Social determinants of health: [n/a] ED CourseMedication(s) OrderedMedication(s) Ordered:Central Nervous System Agents Sig/Ksenia Start time Last Medication Dose Route Stop Time Status Admin Haloperidol Lactate 2.5 MG X1ED STA 09/17 1630 DC IV 09/17 1631 Levetiracetam 100 ML X1ED STA 09/17 1457 DC IV 09/17 1511 Patient Discharge Departure Vital Signs/ConditionVital SignsFirst Documented: Result Date Time Pulse Ox 100 [...] signs available at the time of this entry have been reviewed. Condition Stable Clinical ImpressionClinical ImpressionPrimary Impression: Altered mental status Disposition DecisionAdmit Admit Physician Name Marshall Orellana MD )( Admission Accepts Yes )( Accepted Time 1634 )( Accepted Date 09/17/22 at 1114RPT #:[id number] OF REPORTEDEmergency department [id number]:34:00B.[id number] ilable for patient [id number]:14:25 [facility] 2022-09-17 00:19:00 [id number] 27T00:19:00 [facility] HospitalEMERGENCY PROVIDER REPORTREPORT#:[id number] REPORT STATUS: SignedDATE:09/17/22 TIME: 0019 PATIENT: ADRIANA JONESION UNIT #: [id number]#: [id number] ROOM/BED:AGE: 47 SEX: F PCP PHYS: No Primary or Family PhysicianSERVICE AUTHOR: Asim Jack MD * ALL edits or amendments must be made on the electronic/computer document * HPI-General Illness GeneralInitial Greet Date/Time 09/16/22 1568 PresentationChief Complaint Anxiety, Not feeling well Free Text HPI NotesFree Text HPI NotesPatient brought in by EMS from local women assisted after increasing anxiety and concern for possible seizure activity. She was recently admitted here at [facility] and worked up for possible seizures. She is alert and oriented for me initially with no signs of loss of bowel or bladder function, no oral lesions, and no signs of seizure otherwise. No fever, no chills, no vomiting, no diarrhea. She denies chest or abdominal pain. No leg or back pain. Review of Systems ROS StatementsAll systems rev neg except as marked. Review of SystemsConstitutionalDenies: Fever. RespiratoryDenies: Shortness of breath. CardiovascularDenies: Chest pain. GIDenies: Abdominal pain, Nausea, Vomiting. SkinDenies: Rash. NeurologicDenies: Change LOC, Confusion, Focal weakness, Numbness, Syncope. PsychiatricReports: Anxiety. Denies: Agitation. Past Medical History - AdultStated Complaint EMOTIONAL DISTRESS;"ATTACK";MCKEE;CPAllergiesCoded Allergies:No Known Allergies (09/13/22) Home MedicationsActive ScriptscarBAMazepine (TEGretol) 400 MG PO Q12H carBAMazepine (TEGretol) 400 MG PO Q12H #120 TABS Prov: 09/13/22 Discontinued ScriptsrisperiDONE (RisperDAL) 3 MG PO BEDTIME risperiDONE (RisperDAL) 3 MG PO BEDTIME #30 TABS Prov: 09/13/22 DC: 09/14/22 1500 entry level accounting clerk correctionDIVALPROEX (GINA CALLES) 1,000 MG PO DAILY DIVALPROEX (GINA CALLES) 1,000 MG PO DAILY #60 TABS Prov: 09/13/22 DC: 09/14/22 1459 entry level accounting clerk correction Reported MedicationsDIVALPROEX ER (DEPAKOTE ER) 1,000 MG PO DAILY risperiDONE (RisperDAL) 3 MG PO DAILY Calculated Suicide Risk (nurs) No riskPast Medical History:Reports: Seizure disorder. Additional Medical HistoryAs per HPI.Additional Surgical HistoryNoncontributoryAdditional Family HistoryUnable to obtainDrug Use Denies recreational drugsSmoking status for patients 13 years old or older: Unknown,if ever smokedOther Social History Homeless Physical Exam Vital SignsVital SignsFirst Documented: Result Date Time Pulse Ox 100 09/17 2255 B/P 136/82 09/17 2255 B/P Mean 100 09/17 2255 O2 Delivery Room air 09/17 2255 Temp 37.1 09/17 2255 Pulse 75 09/17 2255 Resp 16 09/17 2255 Last Documented: Result Date Time Pulse Ox 99 09/17 001 B/P 142/84 09/17 001 B/P Mean 103 09/18 15 O2 Delivery Room air 09/18 15 Temp 36.9 09/18 15 Pulse 67 09/18 15 Resp 16 09/18 15 Review of Vital Signs Reviewed Free Text PE NotesFree Text PE NotesPhysical exam: General: AOx4, NAD, well appearing, WN, well hydrated, cooperative Head: NC, AT Neck: supple, FROM Eyes: PERRL, EOMi, no icterus Resp: B/L BS, no wheezing, no rales, no rhonchi, no distress, speaking full sentences CV: RRR, nml cap refill, nml pulses Abd: soft, NT, ND, No rebound/guarding Back: FROM w/o pain, No CVAT Ext: no pitting edema. FROM Skin: no lacerations/diaphoresis/swelling. nml skin turgor. intact Neuro: 5/5x4, nonfocal, nml speech, cn 2-12 intact, nml memory Psych: nml affect/mood with normal thought/cognition/judgment Interpretation Diagnostics Lab Results InterpretationConsiderations Reviewed prior recordsResultsLaboratory Tests 09/16/222333:[Embedded Image Not Available]Laboratory Tests: 09/16 233 Chemistry Sodium (133 - 144 mmol/L) 128.0 [...] L Specimen Appearance (1 NORMAL Index/DL) 1 NORMAL <2 MG Specimen Hemolysis (1 NORMAL Index/DL) [...] % (Auto) (14.1 - 45.4 %) 29.6 Wake % (Auto) (2.5 - 11.7 %) 10.8 Eos % (Auto) (0.0 - 6.2 %) 2.9 Baso % (Auto) (0.0 - 2.1 %) 0.7 Gran # (2.0 - 13.7 k/mm3) 3.12 Lymph # (Auto) (0.6 - 3.8 K/mm3) 1.65 Wake # (Auto) (0.11 - 0.59 K/mm3) 0.60 H Eos # (Auto) (0.0 - 0.4 K/mm3) 0.16 Baso # (Auto) (0.0 - 0.1 K/mm3) 0.04 Immature Gran % (0.0 - 2.0 %) 0.2 Nucleated RBC % (0.0 - 1.0 /100WBC%) 0.0 Nucleated RBCs # (0.0 - 0.05 K/mm3) 0.00 Recent Impressions:CAT SCAN - CT HEAD/BRAIN W/O CONT 09/16 0007 Report Impression - Status: SIGNED Entered: 09/17/2022 0035 IMPRESSION: 1. No CT evidence of acute intracranial abnormality. Impression By: NadiyaMKW1 - Jess Iglesias, MDRADIOLOGY - XR CHEST 1 V 09/16 2305 Report Impression - Status: SIGNED Entered: 09/16/2022 2337 IMPRESSION:No acute cardiopulmonary disease.Impression By: NadiyaJH12 - Flo Jansen MD Lab Imaging StatementLaboratory radiographic studies reviewed and considered in the medical decision-making. ECG #1 InterpretationText/Dict [id number] EKG shows normal sinus rhythm and rate of 64. There is no acute ST elevation to suggest ischemia. Normal axis and intervals without significant hypertrophy or ectopy. Nonspecific T wave changes noted with low voltage. I personally reviewed and interpreted the EKG Re-Evaluation MDM Free Text MDM NotesFree Text MDM NotesPatient presents from local assisted with concern for possible seizure activity. I see no sign of active seizure activity here in the emergency department. Neurologically she has intact cranial nerves, motor and sensory in the upper andlower extremities are intact. Gait is normal, speech is normal, and her cognition is normal. Cerebellar function is intact as well. CT scan of the head obtained which demonstrates no acute intracranial bleed or mass. No leukocytosis, fever, tachycardia, or hypotension to suggest sepsis or septic shock. Urinalysis is clean without infection. EKG is without acute ST elevation, I reviewed this, and high-sensitivity troponin is negative suggestingagainst acute myocardial infarction. No acute renal insufficiency, dehydration,or new electrolyte abnormality noted on metabolic panel (she's had mild hyponatremia recently/old records reviewed). No sign of emergent condition tonight in the ED and I feel she is stable for discharge. Patient urged to follow-up with [facility] in the next 2 to 3 days Re-Evaluation/Progress #1Time of Re-Eval 135Re-Eval Status Unchanged ED CourseMedication(s) OrderedMedication(s) Ordered:Central Nervous System Agents Sig/Ksenia Start time Last Medication Dose Route Stop Time Status Admin Midazolam HCl 1 MG X1ED STA 09/16 2304 DC 09/16 IV 09/16 Patient Discharge Departure Vital Signs/ConditionVital SignsFirst Documented: Result Date Time Pulse Ox 100 09/17 2255 B/P 136/82 09/17 2255 B/P Mean 100 09/17 2255 O2 Delivery Room air 09/17 2255 Temp 37.1 09/17 2255 Pulse 75 09/17 2255 Resp 16 09/17 2255 Last Documented: Result Date Time Pulse Ox 99 09/17 0016 B/P 142/84 09/17 0016 B/P Mean 103 09/17 0016 O2 Delivery Room air 09/17 0016 Temp 36.9 09/17 0016 Pulse 67 09/17 0016 Resp 16 09/17 0016 All vital signs available at the time of this entry have been reviewed. Clinical ImpressionClinical ImpressionPrimary Impression: AnxietySecondary Impressions: History of seizures, Homeless Disposition DecisionDischarge )( Discharged to Home Yes )( Time 136 Discharge/Care PlanCounseled Regarding Diagnosis, Lab results, Imaging studies, Need for follow-up,When to return to EDPatient Instructions ED Anxiety Reaction, ED Seizure, Recurrent (Adult)Additional InstructionsPlease follow-up with [facility], [facility], and neurology. Return if any confusion, headache, stiff neck, fever, vomiting, or any other new concerns. Please take all your medications as instructedReferralsProvider Group: [facility] Follow-Up: 2-3 Days Provider Referral: Nelia Parker MD Follow-Up: 2-3 Days Address: [address] [place] [address] [address] [place] [address] Resource Referral: [facility] Follow-Up: 2-3 Days Address: [address] [place] [id number] at 0140RPT #:[id number] OF REPORTEDEmermercy hospital [facility] [place] department [id number]:19:00B.[id number] ilable for patient [id number]:41:10 [facility] 2022-09-15 12:06:00 [id number] 25T12:06:00 [facility])Electroencephalogram-EEGREPORT#:[id number] REPORT STATUS: SignedDATE:09/15/22 TIME: 1206 PATIENT: BHUMIKA JONES UNIT #: [id number]#: [id number] [facility] [birth year] AGE: 47 SEX: F ATTEND: Vladimir Forbes [facility] AUTHOR: Vickie Lewis MD * ALL edits or amendments must be made on the electronic/computer document * Procedure ProcedureDate of procedure: 09/15/22Procedure performed: routine EEGIndication: seizureProcedure description:This is an 18 channel EEG recording obtained utilizing the modified 10/20 electrode placement system. Start time 08:27Stop time 08:58Findings:There is an occipital dominant rhythm of 8 Hz seen bilaterally. Excessive amount of myogenic artifact was seen in all regions. Occasional movement artifact was seen as well. Within the technical limitations of this EEG, no overt focal slowing or epileptiform discharges noted. Patient was drowsy but nostage II sleep was recorded. Hyperventilation and photic stimulation were not performed. No electrographic seizures recorded.Impression/Conclusion:Considering some technical difficulties due to artifact as mentioned above, overall this is a normal awake and drowsy EEG recording with no epileptiform discharges or electrographic seizures recorded. at 1209 RPT #:[id number] OF REPORTDIDiagnostic [id number]:06:00B.[id number] ailable for patient gpmeOHKQZHYODTQDBF4246-90-27G42:09:33 [facility] 2022-09-15 12:00:00 [id number] 25T12:00:00 [facility] ([facility])Hospitalist Discharge SummaryREPORT#:[id number] REPORT STATUS: SignedDATE:09/15/22 TIME: 1200 PATIENT: BHUMIKA JONES UNIT #: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 evaluated this patient and performed unique parts of the history and physical, as documented by me in the patient s chart/MDM. I agree with the plan of care. at 0449 at 0540RPT #:[id number] OF REPORTEDEmergency department [id number]:21:00B.[id number] ilable for patient [id number]:49:55 [facility] 2022-09-13 20:34:00 [id number] 23T20:34:00 [facility])EMERGENCY PROVIDER REPORTREPORT#:[id number] REPORT STATUS: SignedDATE:09/13/22 TIME: 2033 PATIENT: BHUMIKA JONES UNIT #: [id number]#: [id number] ROOM/BED: [facility]-WAGE: 47 SEX: F PCP PHYS: No Primary or Family PhysicianSERVICE AUTHOR: Stephanie Bosch * ALL edits or amendments must be made on the electronic/computer document * Provider in Triage - Adult Provider in TriageInitial Greet Date/Time 09/13/222017 Greemy NoteI have greeted and performed a focused rapid initial assessment of this patient.A comprehensive ED assessment and evaluation of the patient, analysis of all test results, and completion of the medical decision-making process will be conducted by additional ED providers. HPI Chief Complaint need help with money for medicationsPE General/Const crying Respiratory/Chest No respiratory distressProgresslanguage line used. Denies SI or HI MSE Not CompleteThe medical screening exam is not complete. Further evaluation and/or treatment is required. The patient will be re-directed to the emergency department. PMH-Provider in TriageStated Complaint LEG PAINAllergiesCoded Allergies:No Known Allergies (09/13/22) Home MedicationsActive ScriptscarBAMazepine (TEGretol) 400 MG PO Q12H carBAMazepine (TEGretol) 400 MG PO Q12H #120 TABS Prov: 09/13/22 Reported MedicationsDIVALPROEX ER (DEPAKOTE ER) 1,000 MG PO DAILY risperiDONE (RisperDAL) 3 MG PO DAILY at 1707RPT #:[id number] OF REPORTEDEmergency department [id number]:34:00B.[id number] ilable for patient [id number]:08:12 [facility] 2022-09-13 09:58:00 [id number]:58:00 [facility] ([facility])EMERGENCY PROVIDER REPORTREPORT#:[id number] REPORT STATUS: SignedDATE:09/13/22 TIME: 0958 PATIENT: BHUMIKA JONES UNIT #: [id number]#: [id number] ROOM/BED:AGE: 47 SEX: F PCP PHYS: No Primary or Family PhysicianSERVICE AUTHOR: Brad Woodall DO * ALL edits or amendments must be made on the electronic/computer document * HPI-General Illness Free Text HPI NotesFree Text HPI Zznkz78-wxbw-ict female past medical history epilepsy out of her meds Presents to the ER by EMS for evaluation of seizure-like activity. Patient states has been out of her meds and she had a seizure yesterday and this morning. Prior to this she does not remember her last seizure. Denies fever, no headache, no blurry vision, no numbness or weakness. Denies smoking, EtOH, drugs Problem is new, acute onset, intermittent, worsening, not improved by anything prior to arrival. GeneralInitial Greet Date/Time 09/13/22933 PresentationChief Complaint Chest painHx Obtained From Patient Review of Systems ROS StatementsAll systems rev neg except as marked. Review of SystemsConstitutionalDenies: Chills, Fatigue, Fever. Past Medical History - AdultStated Complaint CHEST PAINSmoking status for patients 13 years old or older: Unknown,if ever smoked Physical Exam Vital SignsVital SignsFirst Documented: Result Date Time Pulse Ox 97 [...] 935 Review of Vital Signs Reviewed Physical ExamGeneral/Const General/Const Awake, Alert, CooperativeMS Head Head Atraumatic, NormocephalicEyes Eyes PERRL, EOMI, No nystagmusEars/Nose/Throat Ears/Nose/Throat Airway patent, Mucous membranes moist, Pharynx NLResp/Chest Respiratory/Chest Breath sounds NL, Breath sounds = bilat, No respiratory distressCardiovascular Cardiovascular Heart rate NL, Regular rhythm, Heart sounds NLAbdomen/GI Abdomen/GI Soft, Non-tender, McBurney's non-tenderSkin Skin Warm, Dry, IntactGenitourinary General Exam deferredNeurologic Neurologic Oriented X3, Speech NL, No motor deficitsPsychiatric Psychiatric Affect NL, Mood NL, Cognitive function NL Interpretation Diagnostics Lab Results InterpretationResultsLaboratory Tests 09/13/22 1142:[Embedded Image Not Available]Laboratory Tests: 09/13 1210 Urines Urine Color (YELLOW DESCRIPT) LIGHT-YELLOW Urine Appearance (CLEAR DESCRIPT) TURBID (1+)HAZY-CLDY H Urine pH (4.6 - 8.0 pH UNITS) 6.0 Ur Specific Morrison (1.001 - 1.035 SG) 1.024 Urine Protein (<30 (1+) mg/dL) NEGATIVE (0) Urine Glucose (UA) (0 (NORMAL) mg/dL) NORMAL (0) Urine Ketones ((NEG) 0 mg/dL) NEGATIVE (0) Urine Blood (0 (NEG) mg/dL) NEGATIVE (0.00) Urine Nitrite (NEG SCREEN) NEGATIVE (0) Urine Bilirubin ((NEG) 0 mg/dL) NEGATIVE (0.0) Urine Urobilinogen (<2.0 (1+) mg/Dl) NORMAL (0) Ur Leukocyte Esterase ((NEG) 0 Leuk/mcL) NEGATIVE (0) Urine RBC (0 - 3 #RBC/HPF) [...] L Specimen Appearance (1 NORMAL Index/DL) 1 NORMAL <2 MG Specimen Hemolysis (1 NORMAL Index/DL) [...] % (Auto) (14.1 - 45.4 %) 34.0 Wake % (Auto) (2.5 - 11.7 %) 10.1 Eos % (Auto) (0.0 - 6.2 %) 2.7 Baso % (Auto) (0.0 - 2.1 %) 0.7 Gran # (2.0 - 13.7 k/mm3) 3.04 Lymph # (Auto) (0.6 - 3.8 K/mm3) 1.98 Wake # (Auto) (0.11 - 0.59 K/mm3) 0.59 Eos # (Auto) (0.0 - 0.4 K/mm3) 0.16 Baso # (Auto) (0.0 - 0.1 K/mm3) 0.04 Immature Gran % (0.0 - 2.0 %) 0.3 Nucleated RBC % (0.0 - 1.0 /100WBC%) 0.0 Nucleated RBCs # (0.0 - 0.05 K/mm3) 0.00 Point of Care TestingPulse Oximetry Pulse Ox % 98 On: Room air Interpretation Interpreted by vt Time 0959 ECG #1 InterpretationECG Documented in MUSE YesDate 09/13/22Time 1000Interpreted by and reviewed by Caleb ECG Interpretation Normal rate, Normal sinus rhythm, No acute ischemic changes, No STEMIRate 73 Re-Evaluation MDM Free Text MDM NotesFree Text MDM NotesNumber and complexity of problemsDifferential diagnosis: Arrhythmia, medication noncompliance, seizure, infection, electrolyte abnormality MDM data: EKG with no acute finding. No signs of infection on lab work. Labs with very mild hyponatremia. Patient with no further seizure-like activity. Rxgiven for seizure medication for home. Patient will follow-up closely with her PCP/neurology. Ambulatory and tolerating p.o. Stable for discharge home at this time. Patient updated and agreeable plan of care External documents reviewed: EMS run sheetMy EKG interpretation: No acute finding, normal sinus rhythmMy CT interpretation: NoneMy x-ray interpretation: No acuteLabs reviewed by me and are significant for: HyponatremiaDecision rules/scores evaluated: NoneDiscussed with: EMS, patient Consider admission for: Not applicableTreatment and disposition: Discharge Shared decision making: With patient as to plan of care and disposition CODE STATUS: Full code Patient Discharge Departure Vital Signs/ConditionVital SignsFirst Documented: Result Date Time Pulse Ox 97 [...] signs available at the time of this entry have been reviewed. Clinical ImpressionClinical ImpressionPrimary Impression: Seizure-like activitySecondary Impressions: Nonadherence to medication Disposition DecisionDischarge )( Discharged to Home Yes )( Time 1255 )( Date 09/13/22 Discharge/Care PlanCounseled Regarding Diagnosis, Lab results, Prescriptions, Need for follow-up, When to return to ED(Auto) PrescriptionsCurrent Visit ScriptsrisperiDONE (RisperDAL) 3 MG PO BEDTIME risperiDONE (RisperDAL) 3 MG PO BEDTIME #[address] TEOFILO CALLES) 1,000 MG PO DAILY DIVALPROEX DR TEOFILO CALLES) 1,000 MG PO DAILY #60 TABS carBAMazepine (TEGretol) 400 MG PO Q12H carBAMazepine (TEGretol) 400 MG PO Q12H #120 TABS Patient Instructions ED Seizure, Recurrent (Adult)Additional InstructionsPlease follow-up with PCP first available appointment Discharge NoteI have spoken with the patient and/or caregivers. I have explained the patient'scondition, diagnoses and treatment plan based on the information available to meat this time. I have answered the patient's and/or caregiver's questions and addressed any concerns. The patient and/or caregivers have as good an understanding of the patient's diagnosis, condition and treatment plan as can beexpected at this point. The vital signs have been stable. The patient's condition is stable and appropriate for discharge from the emergency department. The patient will pursue further outpatient evaluation with the primary care physician or other designated or consulting physician as outlined in the discharge instructions. The patient and/or caregivers are agreeable to this planof care and follow-up instructions have been explained in detail. The patient and/or caregivers have received these instructions in written format and have expressed an understanding of the discharge instructions. The patient and/or caregivers are aware that any significant change in condition or worsening of symptoms should prompt an immediate return to this or the closest emergency department or a call to 911. at [id number] #:[id number] OF REPORTB[facility] department [id number] ilable for patient [id number] [facility]
[2023-06-02 16:27] LABS: Potassium 3.7 mEq/L (3.5-5.1)
[2023-06-02] MEDS ORDERED: ACETAMINOPHEN 500 MG TAB ONE ×2 (16:29→16:47)
[2023-06-02] MEDS ORDERED: ONDANSETRON 4 MG (ODT) TAB ONE ×2 (16:29→16:47)
[2023-06-02] MEDS ORDERED: NA CHLORIDE 0.9% 0 ML ONE (16:29)
[2023-06-02 16:30] LABS: Thyroid Stimulating Hormone 3.98 uIU/mL (0.358-3.740)
[2023-06-02 16:41] LABS: Absolute Lymphocytes (CBC) 1.1 K/uL (0.7-4.9); Hematocrit 34.1 % (36.0-45.0); Lymphocytes % 24.5 % (15.3-44.8); MCV 89.5 fL (80-100); MPV 7.9 fL (7.6-11.3); Platelets 115 thou/uL (152-406); RBC Red Blood Cell Count 3.82 M/uL (3.86-4.86)
[2023-06-02] MEDS ORDERED: NA CHLORIDE 0.9% 1,000 ML ONE (16:47)
[2023-06-02 16:53] LABS: SARS-CoV-2 Antigen Rapid Res Negative (Negative)
--- NOTE | 2023-06-02 17:03 | ER ---
Nurse's Notes [facility] Name: Sidra Hodges Age: 48 yrs Sex: Female : 1975 Arrival Date: 06/02/2023 Time: 12:39 Bed 9 Private MD: Diagnosis: Hypothyroidism, unspecified;Migraine without aura, not intractable Presentation: 06/02 12:50 Chief complaint: Patient states: Vomiting, diarrhea and headache for a week. nj1 Coronavirus screen: Vaccine status: Patient reports being unvaccinated. Ebola Screen: Patient denies travel to an Ebola-affected area in the 21 days before illness onset. Initial Sepsis Screen: Does the patient meet any 2 criteria? No. Patient's initial sepsis screen is negative. Does the patient have a suspected source of infection? No. Patient's initial sepsis screen is negative. Risk Assessment: Do you want to hurt yourself or someone else? Patient reports no desire to harm self or others. Onset of symptoms was May 26, 2023. 12:50 Method Of Arrival: Wheelchair nj 12:50 Acuity: CARMITA 3 nj1 Historical: - Allergies: 12:55 Depakote; nj1 12:55 Tegretol; nj1 12:55 CARBAMAZEPINE DERIVATIVES; nj1 - PMHx: 12:55 Seizures; hemorrhoids; Bipolar disorder; Anxiety; ADD/ADHD; Chronic pain; Schizophrenia;nj1 - Immunization history:: Client reports having NOT received the Covid vaccine. - Social history:: Smoking status: Patient denies any tobacco usage or history of. Screenin:54 [facility] ED Fall Risk Assessment (Adult) Score/Fall Risk Level 0 - 2 = Low Risk. Abuse iw screen: Denies threats or abuse. Denies injuries from another. Nutritional screening: No deficits noted. Tuberculosis screening: No symptoms or risk factors identified. Assessment: 15:54 General: Appears in no apparent distress. Behavior is calm, cooperative. Pain: iw Complains of pain in head. Neuro: Level of Consciousness is awake, alert, obeys commands, Oriented to person, place, time, situation, Moves all extremities. Cardiovascular: Patient's skin is warm and dry. Respiratory: Respiratory effort is even, unlabored, Respiratory pattern is regular, symmetrical. GI: Abdomen is non-distended, Reports nausea, vomiting. Derm: Skin is intact, is healthy with good turgor. Musculoskeletal: Range of motion: intact in all extremities. Vital Signs: 12:50 BP 124 / 99; Pulse 70; Resp 19; Temp 97.7(O); Pulse Ox 99% on R/A; Weight 81.65 kg; nj1 Height 4 ft. 4 in. ; 12:50 Body Mass Index 46.80 (81.65 kg, 132.08 cm) nj1 ED Course: 12:45 Patient arrived in ED. mg5 12:55 Triage completed. nj1 12:57 Arm band placed on. nj1 13:02 Mignon Bal PA-C is PHCP. sb4 13:02 Ramiro Piña DO is Attending Physician. sb4 15:54 Laila Foreman, RN is Primary Nurse. iw 15:55 No provider procedures requiring assistance completed. Inserted saline lock: 22 gauge iw in right antecubital area, using aseptic technique. 18:07 Patient has correct armband on for positive identification. Bed in low position. Call me1 light in reach. Side rails up X2. Provided Education on: POC. Verbalized understanding. . 18:07 IV discontinued, intact, bleeding controlled, No redness/swelling at site. Pressure me1 dressing applied. Administered Medications: 16:32 Drug: NS 0.9% IV 1000 ml IV at 1 bolus Per protocol; 1000 mL bolus Route: IV; Rate: 1 iw bolus; Site: right antecubital; 17:55 Follow up: IV Status: Completed infusion me1 16:32 Drug: Acetaminophen PO 1000 mg PO once Route: PO; iw 17:55 Follow up: Response: No adverse reaction; Marked relief of symptoms me1 16:33 Drug: Ondansetron Oral Disintegrating Tablet Oral Disintegrating Tablet 4 mg PO once iw Route: PO; 17:55 Follow up: Response: No adverse reaction me1 17:24 Drug: Ketorolac IVP 15 mg IVP once Route: IVP; Site: right antecubital; me1 17:55 Follow up: Response: No adverse reaction; No change in condition me1 Medication: 15:54 VIS not applicable for this client. iw Outcome: 17:02 Discharge ordered by . sb4 18:06 Discharged to home via wheelchair, me1 18:06 Condition: stable 18:06 Discharge instructions given to patient, family, Instructed on discharge instructions, follow up and referral plans. medication usage, Demonstrated understanding of instructions, follow-up care, medications, Prescriptions given X 2, 18:19 Patient left the ED. me1 Signatures: Laila Foreman, RN RN Mignon Roland PA-C PA-C sb4 Katelyn Mesa RN RN nj1 Lola Davies RN RN me1 Valerie Wilks mg5 Corrections: (The following items were deleted from the chart) 12:57 12:55 PSHx: R LEG SX; nj nj1
--- NOTE | 2023-06-02 17:03 | EDPHYS ---
Physician Documentation [facility] Name: Sidra Hodges Age: 48 yrs Sex: Female : 1975 Arrival Date: 06/02/2023 Time: 12:39 Bed 9 Private MD: ED Physician Ramiro Piña HPI: 06/03 08:10 This 48 yrs old Female presents to ER via Wheelchair with complaints of sb4 headache, diarrhea, vomiting. 08:10 patient reports headache, nausea, diarrhea for about 1 week now. sister is concerned it sb4 is due to her thyroid. patient has been out of her medications for a few weeks now. no other associated signs/symptoms. no alleviating/aggravating factors. has not taken any OTC remedies. Historical: - Allergies: 06/02 12:55 Depakote; nj1 12:55 Tegretol; nj1 12:55 CARBAMAZEPINE DERIVATIVES; nj1 - PMHx: 12:55 Seizures; hemorrhoids; Bipolar disorder; Anxiety; ADD/ADHD; Chronic pain; Schizophrenia;nj1 - Immunization history:: Client reports having NOT received the Covid vaccine. - Social history:: Smoking status: Patient denies any tobacco usage or history of. ROS: 06/03 08:10 Abdomen/GI: Positive for vomiting, diarrhea, sb4 Neuro: Positive for headache, All other systems are negative, 08:13 Constitutional: Negative for fever, chills, and weight loss, sb4 Exam: 08:10 Constitutional: This is a well developed, well nourished patient who is awake, alert, sb4 and in no acute distress. Head/Face: Normocephalic, atraumatic. Eyes: Extra-ocular motions intact. Periorbital areas with no swelling, redness, or edema. ENT: Mucous membranes moist. Cardiovascular: Regular rate and rhythm with a normal S1 and S2. Respiratory: Lungs have equal breath sounds bilaterally, clear to auscultation and percussion. No rales, rhonchi or wheezes noted. No increased work of breathing, no retractions or nasal flaring. Abdomen/GI: Soft, non-tender, no distension. Skin: Warm, dry with normal turgor. Normal color with no rashes, no lesions, and no evidence of cellulitis. MS/ Extremity: Pulses equal, no cyanosis. Neurovascular intact. Full, normal range of motion. Neuro: Awake and alert, GCS 15, oriented to person, place, time, and situation. Motor strength 5/5 in all extremities. Sensory grossly intact. Vital Signs: 06/02 12:50 BP 124 / 99; Pulse 70; Resp 19; Temp 97.7(O); Pulse Ox 99% on R/A; Weight 81.65 kg; nj1 Height 4 ft. 4 in. ; 12:50 Body Mass Index 46.80 (81.65 kg, 132.08 cm) nj1 MDM: 13:02 Patient medically screened. sb4 06/03 08:10 Differential diagnosis: gastroenteritis, covid, flu, hypothyroidism. Data reviewed: sb4 vital signs, nurses notes, lab test result(s), and as a result, I will discharge patient. Historians other than the Patient: Family Member: sister. Counseling: I had a detailed discussion with the patient and/or guardian regarding the historical points, exam findings, and any diagnostic results supporting the discharge/admit diagnosis, lab results, the need for outpatient follow up, for definitive care, to return to the emergency department if symptoms worsen or persist or if there are any questions or concerns that arise at home. 06/02 13:54 Order name: SARS RAPID; Complete Time: 16:54 sb4 06/02 13:54 Order name: Flu; Complete Time: 17:07 sb4 06/02 14:59 Order name: CBC with Diff; Complete Time: 16:47 sb4 06/02 14:59 Order name: BMP; Complete Time: 16:44 sb4 06/02 14:59 Order name: TSH; Complete Time: 16:44 sb4 06/02 16:34 Order name: T4 Free; Complete Time: 16:44 EDMS 06/02 14:59 Order name: IV Saline Lock; Complete Time: 15:52 sb4 06/02 14:59 Order name: Labs collected and sent; Complete Time: 15:52 sb4 06/02 16:14 Order name: Labs - recollect needed: recollect lavender tube/ hemolyzed; Complete Time: eb 16:32 Administered Medications: 06/02 16:32 Drug: NS 0.9% IV 1000 ml IV at 1 bolus Per protocol; 1000 mL bolus Route: IV; Rate: 1 iw bolus; Site: right antecubital; 17:55 Follow up: IV Status: Completed infusion me1 16:32 Drug: Acetaminophen PO 1000 mg PO once Route: PO; iw 17:55 Follow up: Response: No adverse reaction; Marked relief of symptoms me1 16:33 Drug: Ondansetron Oral Disintegrating Tablet Oral Disintegrating Tablet 4 mg PO once iw Route: PO; 17:55 Follow up: Response: No adverse reaction me1 17:24 Drug: Ketorolac IVP 15 mg IVP once Route: IVP; Site: right antecubital; me1 17:55 Follow up: Response: No adverse reaction; No change in condition me1 Disposition: 19:57 I was immediately available on-site in the Emergency Department for consultation in the ms3 care of the patient. 06/03 14:03 Co-signature as Attending Physician, Ramiro Piña DO. ms3 Disposition Summary: 06/02/23 17:02 Discharge Ordered Notes: Location: Home sb4 Problem: an acute exacerbation sb4 Symptoms: have improved sb4 Condition: Stable sb4 Diagnosis - Hypothyroidism, unspecified sb4 - Migraine without aura, not intractable sb4 Followup: sb4 - With: Emergency Department - When: As needed - Reason: Trouble breathing, Worsening of condition Discharge Instructions: - Discharge Summary Sheet sb4 - Hypothyroidism sb4 - Migraine Headache, [id number] sb4 - Nausea and Vomiting, Adult, [id number] me1 Forms: - Medication Reconciliation Form sb4 - Thank You Letter sb4 - Antibiotic Education sb4 - Prescription Opioid Use sb4 - Patient Portal Instructions sb4 - Leadership Thank You Letter sb4 Prescriptions: - Unithroid 25 mcg Oral tablet - take 1 tablet ORAL route daily; 30 tablet; Refills: 0, Product Selection sb4 Permitted - Zofran 4 mg Oral Tablet - take 1 tablet ORAL route every 12 hours As needed; 20 tablet; Refills: 0, sb4 Product Selection Permitted Signatures: Dispatcher [employer] Laila Warren RN RN iw Sulmea Tucker Marcus, DO DO ms3 Mignon Bal PA-C PA-C sb4 Katelyn Mesa RN RN nj1 Lola Davies RN RN me1 Corrections: (The following items were deleted from the chart) 06/02 12:57 12:55 PSHx: R LEG SX; nj1 nj1
[2023-06-02] MEDS ORDERED: KETOROLAC 30 MG/ML INJ ONE (17:38)
[2023-06-02 18:37] VITALS: BP 124/99; TEMP 97.7; O2SAT 99
== END 2023-06-02 18:19 | disposition home or self-care (01) ==
LOC: ER 12:39
DX: E03.9 Hypothyroidism, unspecified (principal); G43.009 Migraine without aura, not intractable, without status migrainosus; R11.10 Vomiting, unspecified; R19.7 Diarrhea, unspecified; Z20.822 Contact with and (suspected) exposure to COVID-19; Z11.52 Encounter for screening for COVID-19; Z88.8 Allergy status to other drugs, medicaments and biological substances
CPT/HCPCS: 36415; 80048; 84439; 84443; 85025; 87804; 87811; 96361; 96374; 99284; J7030; Q0162

== ENCOUNTER → 2023-06-23 | Emergency (ER) | payer SELFPAY ==
--- OUTSIDE RECORDS SUMMARY | 2023-06-23 12:18 | XMS REPORT | Continuity of Care Document ---
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 19:58: 10 Yes 500mg Take 500 mg by mouth every 24 (twenty-fo ur) hours. [facility] OXcarbazepi ne (TRILEPTAL) 300 mg tablet 10-21 19:58: 10 Yes Take by mouth. [facility] divalproex ER (DEPAKOTE ER) 500 mg 24 hr tablet 10-21 19:58: 10 Yes 500mg Take 500 mg by mouth every 24 (twenty-fo ur) hours. [facility] OXcarbazepi ne (TRILEPTAL) 300 mg tablet 10-21 19:58: 10 Yes Take by mouth. [facility] divalproex ER (DEPAKOTE ER) 500 mg 24 hr tablet 10-21 19:58: 10 Yes 500mg Take 500 mg by mouth every 24 (twenty-fo ur) hours. [facility] OXcarbazepi ne (TRILEPTAL) 300 mg tablet 10-21 19:58: 10 Yes Take by mouth. [facility] divalproex ER (DEPAKOTE ER) 500 mg 24 hr tablet 10-21 19:58: 10 Yes 500mg Take 500 mg by mouth every 24 (twenty-fo ur) hours. [facility] OXcarbazepi ne (TRILEPTAL) 300 mg tablet 10-21 19:58: 10 Yes Take by mouth. [facility] divalproex ER (DEPAKOTE ER) 500 mg 24 hr tablet 10-21 19:58: 10 Yes 500mg Take 500 mg by mouth every 24 (twenty-fo ur) hours. [facility] OXcarbazepi ne (TRILEPTAL) 300 mg tablet 10-21 19:58: 10 Yes Take by mouth. [facility] divalproex ER (DEPAKOTE ER) 500 mg 24 hr tablet 10-21 19:58: 10 Yes 500mg Take 500 mg by mouth every 24 (twenty-fo ur) hours. [facility] OXcarbazepi ne (TRILEPTAL) 300 mg tablet 10-21 19:58: 10 Yes Take by mouth. [facility] divalproex ER (DEPAKOTE ER) 500 mg 24 hr tablet 10-21 19:58: 10 Yes 500mg Take 500 mg by mouth every 24 (twenty-fo ur) hours. [facility] OXcarbazepi ne (TRILEPTAL) 300 mg tablet 10-21 19:58: 10 Yes Take by mouth. [facility] naproxen (NAPROSYN) 500 mg tablet 10-21 00:00: 00 Yes 500mg Take 1 tablet by mouth 2 (two) times daily with meals. [facility] naproxen (NAPROSYN) 500 mg tablet 10-21 00:00: 00 Yes 500mg Take 1 tablet by mouth 2 (two) times daily with meals. [facility] naproxen (NAPROSYN) 500 mg tablet 10-21 00:00: 00 Yes 500mg Take 1 tablet by mouth 2 (two) times daily with meals. [facility] naproxen (NAPROSYN) 500 mg tablet 10-21 00:00: 00 Yes 500mg Take 1 tablet by mouth 2 (two) times daily with meals. [facility] naproxen (NAPROSYN) 500 mg tablet 10-21 00:00: 00 Yes 500mg Take 1 tablet by mouth 2 (two) times daily with meals. [facility] naproxen (NAPROSYN) 500 mg tablet 10-21 00:00: 00 Yes 500mg Take 1 tablet by mouth 2 (two) times daily with meals. [facility] naproxen (NAPROSYN) 500 mg tablet 10-21 00:00: 00 Yes 500mg Take 1 tablet by mouth 2 (two) times daily with meals. [facility] naproxen (NAPROSYN) 500 mg tablet 10-21 00:00: 00 Yes 500mg Take 1 tablet by mouth 2 (two) times daily with meals. [facility] naproxen (NAPROSYN) 500 mg tablet 10-21 00:00: 00 Yes 500mg Take 1 tablet by mouth 2 (two) times daily with meals. [facility] naproxen (NAPROSYN) 500 mg tablet 10-21 00:00: 00 Yes 500mg Take 1 tablet by mouth 2 (two) times daily with meals. [facility] naproxen (NAPROSYN) 500 mg tablet 10-21 00:00: 00 Yes 500mg Take 1 tablet by mouth 2 (two) times daily with meals. [facility] naproxen (NAPROSYN) 500 mg tablet 10-21 00:00: 00 Yes 500mg Take 1 tablet by mouth 2 (two) times daily with meals. [facility] naproxen (NAPROSYN) 500 mg tablet 10-21 00:00: 00 Yes 500mg Take 1 tablet by mouth 2 (two) times daily with meals. [facility] naproxen (NAPROSYN) 500 mg tablet 10-21 00:00: 00 Yes 500mg Take 1 tablet by mouth 2 (two) times daily with meals. [facility] naproxen (NAPROSYN) 500 mg tablet 10-21 00:00: 00 Yes 500mg Take 1 tablet by mouth 2 (two) times daily with meals. [facility] naproxen (NAPROSYN) 500 mg tablet 10-21 00:00: 00 Yes 500mg Take 1 tablet by mouth 2 (two) times daily with meals. [facility] naproxen (NAPROSYN) 500 mg tablet 10-21 00:00: 00 Yes 500mg Take 1 tablet by mouth 2 (two) times daily with meals. [facility] naproxen (NAPROSYN) 500 mg tablet 10-21 00:00: 00 Yes 500mg Take 1 tablet by mouth 2 (two) times daily with meals. [facility] naproxen (NAPROSYN) 500 mg tablet 10-21 00:00: 00 Yes 500mg Take 1 tablet by mouth 2 (two) times daily with meals. [facility] ibuprofen 600 mg tablet 02-06 00:00: 00 Yes 600mg Take 1 tablet by mouth every 8 (eight) hours as needed for Pain (scale 4-6). [facility] ibuprofen 600 mg tablet 02-06 00:00: 00 Yes 600mg Take 1 tablet by mouth every 8 (eight) hours as needed for Pain (scale 4-6). [facility] ibuprofen 600 mg tablet 02-06 00:00: 00 Yes 600mg Take 1 tablet by mouth every 8 (eight) hours as needed for Pain (scale 4-6). [facility] ibuprofen 600 mg tablet 02-06 00:00: 00 Yes 600mg Take 1 tablet by mouth every 8 (eight) hours as needed for Pain (scale 4-6). [facility] ibuprofen 600 mg tablet 16 00:00: 00 Yes 600mg Take 1 tablet by mouth every 8 (eight) hours as needed for Pain (scale 4-6). [facility] ibuprofen 600 mg tablet 02-06 00:00: 00 Yes 600mg Take 1 tablet by mouth every 8 (eight) hours as needed for Pain (scale 4-6). [facility] ibuprofen 600 mg tablet 02-06 00:00: 00 Yes 600mg Take 1 tablet by mouth every 8 (eight) hours as needed for Pain (scale 4-6). [facility] ibuprofen 600 mg tablet 02-06 00:00: 00 Yes 600mg Take 1 tablet by mouth every 8 (eight) hours as needed for Pain (scale 4-6). [facility] ibuprofen 600 mg tablet 02-06 00:00: 00 05-05 00:00 :00 No 600mg Take 1 tablet by mouth every 8 (eight) hours as needed for Pain (scale 4-6). [facility] hydrocortis one 2.5 % rectal cream 7 00:00: 00 Yes Insert into rectum 2 (two) times daily. [facility] hydrocortis one 2.5 % rectal cream 710 00:00: 00 Yes Insert into rectum 2 (two) times daily. [facility] hydrocortis one 2.5 % rectal cream 710 00:00: 00 Yes Insert into rectum 2 (two) times daily. [facility] hydrocortis one 2.5 % rectal cream 710 00:00: 00 Yes Insert into rectum 2 (two) times daily. [facility] hydrocortis one 2.5 % rectal cream 710 00:00: 00 Yes Insert into rectum 2 (two) times daily. [facility] hydrocortis one 2.5 % rectal cream 710 00:00: 00 Yes Insert into rectum 2 (two) times daily. [facility] hydrocortis one 2.5 % rectal cream 20170 710 00:00: 00 Yes Insert into rectum 2 (two) times daily. [facility] hydrocortis one 2.5 % rectal cream 2017-0 710 00:00: 00 Yes Insert into rectum 2 (two) times daily. [facility] hydrocortis one 2.5 % rectal cream 2017-0 710 00:00: 00 Yes Insert into rectum 2 (two) times daily. [facility] hydrocortis one 2.5 % rectal cream 2017-0 710 00:00: 00 Yes Insert into rectum 2 (two) times daily. [facility] hydrocortis one 2.5 % rectal cream 2016-0 710 00:00: 00 Yes Insert into rectum 2 (two) times daily. [facility] hydrocortis one 2.5 % rectal cream 2016-0 710 00:00: 00 Yes Insert into rectum 2 (two) times daily. [facility] hydrocortis one 2.5 % rectal cream 2016-0 710 00:00: 00 Yes Insert into rectum 2 (two) times daily. [facility] hydrocortis one 2.5 % rectal cream 2016-0 710 00:00: 00 Yes Insert into rectum 2 (two) times daily. [facility] hydrocortis one 2.5 % rectal cream 2016-0 710 00:00: 00 Yes Insert into rectum 2 (two) times daily. [facility] hydrocortis one 2.5 % rectal cream 2017-0 710 00:00: 00 Yes Insert into rectum 2 (two) times daily. [facility] hydrocortis one 2.5 % rectal cream 2017-0 710 00:00: 00 Yes Insert into rectum 2 (two) times daily. [facility] hydrocortis one 2.5 % rectal cream 2017-0 710 00:00: 00 Yes Insert into rectum 2 (two) times daily. [facility] hydrocortis one 2.5 % rectal cream 2017-0 710 00:00: 00 Yes Insert into rectum 2 (two) times daily. [facility] hydrocortis one (ANUSOL-HC) 25 mg suppository 07-23 00:00: 00 Yes 25mg Insert 1 Suppositor y into rectum 2 (two) times daily. [facility] hydrocortis one (ANUSOL-HC) 25 mg suppository 07-23 00:00: 00 Yes 25mg Insert 1 Suppositor y into rectum 2 (two) times daily. [facility] hydrocortis one (ANUSOL-HC) 25 mg suppository 07-23 00:00: 00 Yes 25mg Insert 1 Suppositor y into rectum 2 (two) times daily. [facility] hydrocortis one (ANUSOL-HC) 25 mg suppository 07-23 00:00: 00 Yes 25mg Insert 1 Suppositor y into rectum 2 (two) times daily. [facility] hydrocortis one (ANUSOL-HC) 25 mg suppository 07-23 00:00: 00 Yes 25mg Insert 1 Suppositor y into rectum 2 (two) times daily. [facility] hydrocortis one (ANUSOL-HC) 25 mg suppository 07-23 00:00: 00 Yes 25mg Insert 1 Suppositor y into rectum 2 (two) times daily. [facility] hydrocortis one (ANUSOL-HC) 25 mg suppository 07-23 00:00: 00 Yes 25mg Insert 1 Suppositor y into rectum 2 (two) times daily. [facility] hydrocortis one (ANUSOL-HC) 25 mg suppository 07-23 00:00: 00 Yes 25mg Insert 1 Suppositor y into rectum 2 (two) times daily. [facility] hydrocortis one (ANUSOL-HC) 25 mg suppository 07-23 00:00: 00 Yes 25mg Insert 1 Suppositor y into rectum 2 (two) times daily. [facility] hydrocortis one (ANUSOL-HC) 25 mg suppository 07-23 00:00: 00 Yes 25mg Insert 1 Suppositor y into rectum 2 (two) times daily. [facility] hydrocortis one (ANUSOL-HC) 25 mg suppository 07-23 00:00: 00 Yes 25mg Insert 1 Suppositor y into rectum 2 (two) times daily. [facility] hydrocortis one (ANUSOL-HC) 25 mg suppository 07-23 00:00: 00 Yes 25mg Insert 1 Suppositor y into rectum 2 (two) times daily. [facility] hydrocortis one (ANUSOL-HC) 25 mg suppository 07-23 00:00: 00 Yes 25mg Insert 1 Suppositor y into rectum 2 (two) times daily. [facility] hydrocortis one (ANUSOL-HC) 25 mg suppository 07-23 00:00: 00 Yes 25mg Insert 1 Suppositor y into rectum 2 (two) times daily. [facility] hydrocortis one (ANUSOL-HC) 25 mg suppository 07-23 00:00: 00 Yes 25mg Insert 1 Suppositor y into rectum 2 (two) times daily. [facility] hydrocortis one (ANUSOL-HC) 25 mg suppository 07-23 00:00: 00 Yes 25mg Insert 1 Suppositor y into rectum 2 (two) times daily. [facility] hydrocortis one (ANUSOL-HC) 25 mg suppository 07-23 00:00: 00 Yes 25mg Insert 1 Suppositor y into rectum 2 (two) times daily. [facility] hydrocortis one (ANUSOL-HC) 25 mg suppository 07-23 00:00: 00 Yes 25mg Insert 1 Suppositor y into rectum 2 (two) times daily. [facility] hydrocortis one (ANUSOL-HC) 25 mg suppository 07-23 00:00: 00 Yes 25mg Insert 1 Suppositor y into rectum 2 (two) times daily. [facility] Vital Signs Vital Name Observation Time Observation Value Comments S maddisonce Height 2022-11-04 14:04:00 149.86 CM Weight 2022-11-04 14:04:00 73.02 KG Systolic blood pressure 2022-09-24 17:32:00 130 mm[Hg] [facility] Diastolic blood pressure 2022-09-24 17:32:00 85 mm[Hg] [facility] Heart rate 2022-09-24 17:32:00 64 /[facility] Body [facility] 2022-09-24 17:32:00 36.83 Oma [facility] Respiratory rate 2022-09-24 17:32:00 18 /min [facility] Body weight 2022-09-24 17:32:[address] [facility] BMI 2022-09-24 17:32:00 33.33 kg/m2 [facility] Oxygen saturation in Arterial blood by Pulse oximetry 2022-09-24 17:32:00 99 /min [facility] Systolic blood pressure 2022-09-10 23:55:00 111 mm[Hg] [facility] Diastolic blood pressure 2022-09-10 23:55:00 84 mm[Hg] [facility] Heart rate 2022-09-10 23:55:00 105 /min [facility] Body temperature 2022-09-10 23:55:00 37.33 Oma [facility] Respiratory rate 2022-09-10 23:55:00 19 /min [facility] Systolic blood pressure 2022-09-10 01:44:00 126 mm[Hg] [facility] Diastolic blood pressure 2022-09-10 01:44:00 81 mm[Hg] [facility] Heart rate 2022-09-10 01:44:00 78 /min [facility] Body temperature 2022-09-10 01:44:00 36.56 Oma [facility] Respiratory rate 2022-09-10 01:44:00 16 /min [facility] Body weight 2022-09-10 01:44:[address] [facility] BMI 2022-09-10 01:44:00 35.35 kg/m2 [facility] Oxygen saturation in Arterial blood by Pulse oximetry 2022-09-10 01:44:00 100 /min [facility] Systolic blood pressure 2022-09-07 05:37:00 119 mm[Hg] [facility] Diastolic blood pressure 2022-09-07 05:37:00 67 mm[Hg] [facility] Heart rate 2022-09-07 05:37:00 79 /min [facility] Respiratory rate 2022-09-07 05:37:00 16 /min [facility] Oxygen saturation in Arterial blood by Pulse oximetry 2022-09-07 05:37:00 98 /min [facility] Body temperature 2022-09-06 23:05:00 36.78 Oma [facility] Body weight 2022-09-06 23:05:[address] [facility] BMI 2022-09-06 23:05:00 35.35 kg/m2 [facility] Systolic blood pressure 2021-10-02 20:55:00 111 mm[Hg] [facility] Diastolic blood pressure 2021-10-02 20:55:00 70 mm[Hg] [facility] Heart rate 2021-10-02 20:55:00 79 /min [facility] Body temperature 2021-10-02 20:55:00 36.61 Oma [facility] Respiratory rate 2021-10-02 20:55:00 18 /min [facility] Body height 2021-10-02 20:55:00 149.9 cm [facility] Body weight 2021-10-02 20:55:[address] [facility] BMI 2021-10-02 20:55:00 35.35 kg/m2 [facility] Oxygen saturation in Arterial blood by Pulse oximetry 2021-10-02 20:55:00 100 /min [facility] Systolic blood pressure 2021-05-05 19:20:00 102 mm[Hg] [facility] Diastolic blood pressure 2021-05-05 19:20:00 48 mm[Hg] [facility] Heart rate 2021-05-05 19:20:00 68 /min [facility] Body temperature 2021-05-05 19:20:00 36.94 Oma [facility] Respiratory rate 2021-05-05 19:20:00 18 /min [facility] Body weight 2021-05-05 19:20:00 79.379 kg [facility] BMI 2021-05-05 19:20:00 35.35 kg/m2 [facility] Oxygen saturation in Arterial blood by Pulse oximetry 2021-05-05 19:20:00 99 /min [facility] Systolic blood pressure 2019-12-15 22:12:00 138 mm[Hg] [facility] Diastolic blood pressure 2019-12-15 22:12:00 100 mm[Hg] [facility] Heart rate 2019-12-15 22:12:00 77 /min [facility] Body temperature 2019-12-15 22:12:00 37.06 Oma [facility] Respiratory rate 2019-12-15 22:12:00 20 /min [facility] Body weight 2019-12-15 22:12:00 79.379 kg [facility] BMI 2019-12-15 22:12:00 35.35 kg/m2 [facility] Oxygen saturation in Arterial blood by Pulse oximetry 2019-12-15 22:12:00 100 /min [facility] Systolic blood pressure 2019-12-15 22:12:00 138 mm[Hg] [facility] Diastolic blood pressure 2019-12-15 22:12:00 100 mm[Hg] [facility] Heart rate 2019-12-15 22:12:00 77 /min [facility] Body temperature 2019-12-15 22:12:00 37.06 Oma [facility] Respiratory rate 2019-12-15 22:12:00 20 /min [facility] Body weight 2019-12-15 22:12:00 79.379 kg [facility] BMI 2019-12-15 22:12:00 35.35 kg/m2 [facility] Oxygen saturation in Arterial blood by Pulse oximetry 2019-12-15 22:12:00 100 /min [facility] Respiratory rate 2019-10-25 23:43:00 18 /min [facility] Body weight 2019-10-25 23:43:00 83.915 kg [facility] BMI 2019-10-25 23:43:00 37.37 kg/m2 [facility] Respiratory rate 2019-10-25 23:43:00 18 /min [facility] Body weight 2019-10-25 23:43:[address] [facility] BMI 2019-10-25 23:43:00 37.37 kg/m2 [facility] Systolic blood pressure 2019-08-13 19:25:00 123 mm[Hg] [facility] Diastolic blood pressure 2019-08-13 19:25:00 88 mm[Hg] [facility] Heart rate 2019-08-13 19:25:00 78 /min [facility] Body temperature 2019-08-13 19:25:00 36.56 Oma [facility] Respiratory rate 2019-08-13 19:25:00 18 /min [facility] Body height 2019-08-13 19:25:[address] [facility] Body weight 2019-08-13 19:25:[address] [facility] BMI 2019-08-13 19:25:00 40.40 kg/m2 [facility] Oxygen saturation in Arterial blood by Pulse oximetry 2019-08-13 19:25:00 100 /min [facility] Systolic blood pressure 2019-08-13 19:25:00 123 mm[Hg] [facility] Diastolic blood pressure 2019-08-13 19:25:00 88 mm[Hg] [facility] Heart rate 2019-08-13 19:25:00 78 /min [facility] Body temperature 2019-08-13 19:25:00 36.56 Oma [facility] Respiratory rate 2019-08-13 19:25:00 18 /min [facility] [facility] Body height 2019-08-13 19:25:00 149.9 cm [facility] Body weight 2019-08-13 19:25:00 90.719 kg [facility] BMI 2019-08-13 19:25:00 40.40 kg/m2 [facility] Oxygen saturation in Arterial blood by Pulse oximetry 2019-08-13 19:25:00 100 /min [facility] Systolic blood pressure 2019-07-23 00:20:15 120 mm[Hg] [facility] Diastolic blood pressure 2019-07-23 00:20:15 74 mm[Hg] [facility] Heart rate 2019-07-23 00:20:15 82 /min [facility] Respiratory rate 2019-07-23 00:20:15 19 /min [facility] Oxygen saturation in Arterial blood by Pulse oximetry 2019-07-23 00:20:15 100 /min [facility] Body temperature 2019-07-22 19:41:00 36.33 Oma [facility] Body weight 2019-07-22 19:39:[address] [facility] BMI 2019-07-22 19:39:00 39.06 kg/m2 [facility] Systolic blood pressure 2019-07-23 00:20:15 120 mm[Hg] [facility] Diastolic blood pressure 2019-07-23 00:20:15 74 mm[Hg] [facility] Heart rate 2019-07-23 00:20:15 82 /min [facility] Respiratory rate 2019-07-23 00:20:15 19 /min [facility] Oxygen saturation in Arterial blood by Pulse oximetry 2019-07-23 00:20:15 100 /min [facility] Body temperature 2019-07-22 19:41:00 36.33 Moa [facility] Body weight 2019-07-22 19:39:00 90.719 kg [facility] BMI 2019-07-22 19:39:00 39.06 kg/m2 [facility] Systolic blood pressure 2019-07-14 03:33:00 127 mm[Hg] [facility] Diastolic blood pressure 2019-07-14 03:33:00 88 mm[Hg] [facility] Heart rate 2019-07-14 03:33:00 79 /min [facility] Respiratory rate 2019-07-14 03:33:00 16 /min [facility] Oxygen saturation in Arterial blood by Pulse oximetry 2019-07-14 03:33:00 97 /min [facility] Body weight 2019-07-14 02:16:[address] [facility] BMI 2019-07-14 02:16:00 39.06 kg/m2 [facility] Body temperature 2019-07-14 02:15:00 36.78 Oma [facility] Body weight 2019-07-10 20:39:[address] [facility] BMI 2019-07-10 20:39:00 39.06 kg/m2 [facility] Systolic blood pressure 2019-01-21 23:34:00 133 mm[Hg] [facility] Diastolic blood pressure 2019-01-21 23:34:00 78 mm[Hg] [facility] Heart rate 2019-01-21 23:34:00 66 /min [facility] Body temperature 2019-01-21 23:34:00 36.94 Oma [facility] Respiratory rate 2019-01-21 23:34:00 18 /min [facility] Body height 2019-01-21 23:34:[address] [facility] Body weight 2019-01-21 23:34:[address] [facility] BMI 2019-01-21 23:34:00 31.35 kg/m2 [facility] Oxygen saturation in Arterial blood by Pulse oximetry 2019-01-21 23:34:00 100 /min [facility] Systolic blood pressure 2019-01-21 23:34:00 133 mm[Hg] [facility] Diastolic blood pressure 2019-01-21 23:34:00 78 mm[Hg] [facility] Heart rate 2019-01-21 23:34:00 66 /min [facility] Body temperature 2019-01-21 23:34:00 36.94 Oma [facility] Respiratory rate 2019-01-21 23:34:00 18 /min [facility] Body height 2019-01-21 23:34:[address] [facility] Body weight 2019-01-21 23:34:[address] [facility] BMI 2019-01-21 23:34:00 31.35 kg/m2 [facility] Oxygen saturation in Arterial blood by Pulse oximetry 2019-01-21 23:34:00 100 /min [place] [facility] Procedures Procedure Date / Time Performed Performing Clinician Source REFERRAL- REQUEST/RESPONSE 2023-06-05 06:01:00 Doctor Unassigned, [place] [facility] REFERRAL- REQUEST/RESPONSE 2023-05-20 06:01:00 Doctor Unassigned, [place] [facility] COMP. METABOLIC PANEL (50171) 2022-09-07 01:38:00 Tayo Boyd [facility] CBC WITH DIFF 2022-09-07 01:38:00 [facility] URINALYSIS 2022-09-07 01:38:00 [facility] X[facility] ANKLE <3 VW LEFT 2022-09-07 00:56:00 Tayo Boyd [facility] XR FOOT <3 VW LEFT 2022-09-07 00:56:00 Tayo Boyd [facility] CONSENT/REFUSAL FOR DIAGNOSIS AND TREATMENT 2022-09-06 22:08:37 Doctor Unassigned, [place] [facility] CERVICAL SPINE WO CONTRAST 2021-10-02 21:53:00 Javed Lester [facility] LUMBAR SPINE WO CONTRAST 2021-10-02 21:53:00 Javed Lester [facility] THORACIC SPINE WO CONTRAST 2021-10-02 21:53:00 Javed Lester [facility] XR FOREARM 2 VW RIGHT 2021-05-05 20:03:34 Jose Carlos Rojas [facility] XR WRIST 3+ VW RIGHT 2021-05-05 20:03:34 Chino Rojas [facility] NOTICE OF PRIVACY PRACTICES 2021-05-05 19:12:00 Doctor Unassigned, [place] [facility] CONSENT/REFUSAL FOR DIAGNOSIS AND TREATMENT 2021-05-05 19:11:19 Doctor Unassigned, [place] [facility] CONSENT/REFUSAL FOR DIAGNOSIS AND TREATMENT 2019-08-13 19:17:22 Doctor Unassigned, [place] [facility] HEAD WO CONTRAST 2019-07-22 22:24:37 Rachel Samayoa [facility] XR CERVICAL SPINE 2 VW 2019-07-22 21:59:59 Samantha Samayoa [facility] CBC WITH DIFFERENTIAL 2019-07-22 21:34:00 Yanira Samayoa [facility] XR CERVICAL SPINE 2 VW 2019-07-14 02:43:00 Ivory Albrecht [facility] XR ELBOW <3 VW LEFT 2019-07-14 02:43:00 Henry Albrecht [facility] XR KNEE <3 VW RIGHT 2019-07-14 02:43:00 Henry Albrecht [facility] XR SHOULDER <2 VW LEFT 2019-07-14 02:43:00 Ivory Albrecht [facility] Encounters Start Date/Time End Date/Time Encounter Type Admission Type Attending [facility] Facility Care Department Encounter ID Source 2022-11-13 13:10:28 Inpatient [facility] [id number] [facility] 2022-11-05 09:23:13 Inpatient [facility] [id number] [facility] 2023-06-18 10:35:36 2023-06-18 10:35:36 Outpatient [facility] [id number] Henry Contreras 2023-06-05 00:00:00 2023-06-05 00:00:00 Orders Only Doctor Unassigned, [place] [facility] 1.2.840.114 350.1.13.10 4.2.7.2.686 [id number] [facility] 2023-06-04 16:00:39 2023-06-04 16:00:39 Outpatient [facility] [id number] Henry Contreras 2023-05-24 15:38:52 2023-05-24 15:38:52 Outpatient [facility] [id number] Henry Contreras 2023-05-22 00:00:00 2023-05-22 00:00:00 Letter (Out) Neurology [facility] [place] [facility] 1.2.840.114 350.1.13.10 4.2.7.2.686 [id number] [facility] 2023-05-20 00:00:00 2023-05-20 00:00:00 Orders Only Doctor Unassigned, [place] [facility] 1.2840.114 350.1.13.10 4.2.7.2.686 [id number] [facility] 2023-05-17 15:07:14 2023-05-17 15:07:14 Outpatient [facility] [id number] Henry Contreras 2023-03-02 12:27:43 2023-03-02 12:27:43 Outpatient [facility] [id number] Henry Contreras 2023-01-09 17:11:26 2023-01-09 17:11:26 Outpatient [facility] [id number] Henry Contreras 2022-11-04 14:04:00 2022-11-05 11:09:00 Emergency JESS FALCON [facility] [id number] [facility] 2022-09-24 12:33:00 2022-09-24 12:51:00 Emergency Heri Snow [facility] 1.840.114 350.1.13.10 4.2.7.2.686 [id number] [facility] 2022-09-22 00:00:00 2022-09-22 00:00:00 Nurse Triage Madhavi Mcginnis [facility] 1.2.840.114 350.1.13.10 4.2.7.2.686 [id number] [facility] 2022-09-10 23:39:00 2022-09-11 11:28:00 Emergency EM [facility] [id number] 2022-09-10 18:57:00 2022-09-10 20:20:00 Emergency Mariana Lopezju Ains[facility] 1..840.114 350.1.13.10 4.2.7.2.686 [id number] [facility] 2022-09-10 18:57:00 2022-09-10 20:20:00 Emergency X SANDRITA KEY [facility] ERT [id number] [facility] 2022-09-09 20:45:00 2022-09-09 22:46:00 Emergency X SANDRITA KEY [facility] ERT [id number] [facility] 2022-09-09 20:45:00 2022-09-09 22:46:00 Emergency Sandrita [facility] 1..840.114 350.1.13.10 4.2.7.2.686 [id number] [facility] 2022-09-06 18:09:00 2022-09-07 00:51:00 Emergency X TAYO BOYD [facility] ERT [id number] [facility] 2022-09-06 18:09:00 2022-09-07 00:51:00 Emergency Tayo Boyd [facility] 1..840.114 350.1.13.10 4.2.7.2.686 [id number] [facility] 2022-08-21 14:11:33 2022-08-21 14:11:33 Outpatient [facility] [id number] Henry Etta Ben 2022-07-17 15:03:48 2022-07-17 15:03:48 Outpatient [facility] [id number] Henry F Ben 2021-10-02 15:56:00 2021-10-02 19:00:00 Emergency X JAVED LESTER [facility] ERT [id number] [facility] 2021-10-02 15:56:00 2021-10-02 19:00:00 Emergency Javed Lester [facility] 1.2.840.114 350.1.13.10 4.2.7.2.686 [id number] [facility] 2021-05-05 13:22:00 2021-05-05 14:48:00 Emergency X DEON ROJAS [facility] ERT [id number] [facility] 2021-05-05 13:22:00 2021-05-05 14:48:00 Emergency Deon Rojas [facility] 1.2.840.114 350.1.13.10 4.2.7.2.686 [id number] [facility] 2021-05-05 00:00:00 2021-05-05 00:00:00 Orders Only Doctor Unassigned, [place] [facility] 1.2.840.114 350.1.13.10 4.2.7.2.686 [id number] [facility] 2019-12-15 17:11:56 2019-12-15 18:04:00 [facility] 1.2.840.114 350.1.13.10 4.2.7.2.686 [id number] 2019-12-15 17:11:56 2019-12-15 18:04:00 Emergency Kp Peraza [facility] 1.2.840.114 350.1.13.10 4.2.7.2.686 [id number] [facility] 2019-12-15 17:11:56 2019-12-15 17:11:56 Emergency X Kp PERAZA [facility] ERT [id number] [facility] 2019-10-25 18:31:31 2019-10-25 19:21:00 Emergency Kristin Ballesteros [facility] 1.2.840.114 350.1.13.10 4.2.7.2.686 [id number] 2019-10-25 18:31:31 2019-10-25 19:21:00 Emergency Kristin Ballesteros [facility] 1.2.840.114 350.1.13.10 4.2.7.2.686 [id number] [facility] 2019-10-25 18:31:31 2019-10-25 18:31:31 Emergency X KRISTIN BALLESTEROS [facility] ERT [id number] [facility] 2019-08-13 13:30:00 2019-08-13 14:36:00 Emergency Floridalma Evans [facility] 1.2.840.114 350.1.13.10 4.2.7.2.686 [id number] 2019-08-13 13:30:00 2019-08-13 14:36:00 Emergency Floridalma Evans [facility] 1.2.840.114 350.1.13.10 4.2.7.2.686 [id number] [facility] 2019-08-13 13:30:00 2019-08-13 14:36:00 Emergency X FLORIDALMA EVANS [facility] ERT [id number] [facility] 2019-07-22 13:42:11 2019-07-22 19:02:00 Emergency Unknown, Attending Lisa Lopez [facility] 1.2.840.114 350.1.13.10 4.2.7.2.686 [id number] 2019-07-22 13:42:11 2019-07-22 19:02:00 Emergency X LISA LOPEZ [facility] ERT [id number] [facility] 2019-07-22 13:42:11 2019-07-22 19:02:00 Emergency Unknown, Attending Lisa Lopez [facility] 1.2.840.114 350.1.13.10 4.2.7.2.686 [id number] [facility] 2019-07-13 20:17:19 2019-07-13 21:48:00 Emergency X HENRY ALBRECHT [facility] ERT [id number] [facility] 2019-07-13 20:17:19 2019-07-13 21:48:00 Emergency Henry Albrecht [facility] 1.2.840.114 350.1.13.10 4.2.7.2.686 [id number] [facility] 2019-07-10 14:26:03 2019-07-10 16:33:00 Emergency X DEBBIE PAYTON [facility] ERT [id number] [facility] 2019-07-10 14:26:03 2019-07-10 16:33:00 Emergency Debbie Payton [facility] 1.2.840.114 350.1.13.10 4.2.7.2.686 [id number] [facility] 2019-07-04 19:09:02 2019-07-04 22:51:00 Emergency X LISA LOPEZ [facility] ERT [id number] [facility] 2019-06-30 10:33:08 2019-06-30 13:10:00 Emergency X DEON [facility] ERT [id number] [facility] 2019-05-25 11:58:19 2019-05-25 15:37:00 Emergency X DEON ROJAS [facility] ERT [id number] [facility] 2019-04-09 22:29:37 2019-04-09 23:28:00 Emergency X BELLAFLORIDALMA [facility] ERT [id number] [facility] 2019-01-21 18:38:01 2019-01-21 19:59:00 Emergency Le Ramirez [facility] 1.2.840.114 350.1.13.10 4.2.7.2.686 [id number] 2019-01-21 18:38:01 2019-01-21 19:59:00 Emergency Le Ramirez [facility] 1.2.840.114 350.1.13.10 4.2.7.2.686 [id number] [facility] Results Test Description Test Time Test Comments Results Result Co mments Source COMPREHENSIVE METABOLIC [id number] 23:46:03* Test Item Value Reference Range Interpretation Comme nts GLUCOSE (test code = 7) 97 MG/DL 70-99 BUN (test code = 2208) 7 MG/DL 6-20 CREATININE (test code = 2214) 0.61 MG/DL 0.60-1.30 eGFR (2020 CKD-EPI) (test code = 25116) 110 ML/MIN/1.73 >60 CALC BUN/CREAT (test code = 2235) 11 RATIO 6-28 SODIUM (test code = 223) 132 MEQ/L 133-146 L POTASSIUM (test code = 2228) 4.1 MEQ/L 3.5-5.4 CHLORIDE (test code = 2215) 95 MEQ/L 95-107 CARBON DIOXIDE (test code = 2206) 26 MEQ/L 19-31 CALCIUM (test code = 2209) 9.5 MG/DL 8.5-10.5 PROTEIN, TOTAL (test code = 2229) 7.9 G/DL 6.1-8.3 ALBUMIN (test code = 2201) 3.8 G/DL 3.5-5.2 CALC GLOBULIN (test code = 2240) 4.1 G/DL 1.9-3.7 H CALC A/G RATIO (test code = 2234) 0.9 RATIO 1.0-2.6 L BILIRUBIN, TOTAL (test code = 2207) 0.2 MG/DL <=1.2 ALKALINE PHOSPHATASE (test code = 2204) 70 U/L 40-125 AST (test code = 2218) 20 U/L 9-40 ALT (test code = 2219) 13 U/L 5-40 CBC W/AUTO DIFF WITH [id number] 08:48:44* Test Item Value Reference Range Interpretation [...] 0.00-0.10 ABS NUCLEATED RBCS (test code = 81718) 0.00 K/UL 0.00-0.11 UNLESS OTHER MONTOYA INDICATED, ALL TESTING PERFORMED AT [facility] [address] [place] [address] COMPLAINT INSPECTOR: JATIN FELIPE M.D. CLIA NUMBER [id number] [facility] [place]. [id number] 01:13:06* Test Item Value Reference Range Interpretation Comme nts TRANSFERRIN (test code = 4936) 315 MG/DL 200-360 UNLESS OTHERWISE INDICATED, ALL TESTING PERFORMED AT [facility] [address] [place] [address] COMPLAINT INSPECTOR: JATIN FELIPE M.D. IA NUMBER [id number] [facility] [place]. [id number] LIPID [id number] 01:12:48* Test Item Value Reference Range Interpretation [...] SPECIMENS. FOR MOREINFORMATION, SEE CLIENT ANNOUNCEMENT AT [email or web address] RISK RATIO LDL/HDL (test code = 2238) 1.34 RATIO <3.22 COMPREHENSIVE METABOLIC [id number] 01:12:48* Test Item Value Reference Range Interpretation Comme nts GLUCOSE (test code = 2217) 92 MG/DL 70-99 BUN (test code = 2208) 15 MG/DL 6-20 CREATININE (test code = 2214) 0.65 MG/DL 0.60-1.30 eGFR (2020 CKD-EPI) (test code = 88109) 108 ML/MIN/1.73 >60 CALC BUN/CREAT (test code = 2235) 23 RATIO 6-28 SODIUM (test code = 2231) 135 MEQ/L 133-146 POTASSIUM (test code = 2228) 4.2 MEQ/L 3.5-5.4 CHLORIDE (test code = 2215) 99 MEQ/L 95-107 CARBON DIOXIDE (test code = 2206) 24 MEQ/L 19-31 CALCIUM (test code = 2209) 9.8 MG/DL 8.5-10.5 PROTEIN, TOTAL (test code = 222) 7.8 G/DL 6.1-8.3 ALBUMIN (test code = 220) 3.9 G/DL 3.5-5.2 CALC GLOBULIN (test code = 2240) 3.9 G/DL 1.9-3.7 H CALC A/G RATIO (test code = 2234) 1.0 RATIO 1.0-2.6 BILIRUBIN, TOTAL (test code = 220) <0.2 MG/DL See_Comment [Automated me ssage] The system which generated this result transmitted reference range: <=1.2. The reference range was not used to interpret this result as normal/abnormal. ALKALINE PHOSPHATASE (test code = 220) 73 U/L 40-125 AST (test code = 2217) 15 U/L 9-40 ALT (test code = 221) 7 U/L 5-40 IRON BINDING CAPACITY AND IRON AND % [id number] 01:12:48* Test Item Value Reference Range Interpretation Comme nts IRON, SERUM (test code = 2222) 51 UG/DL 37-145 UNSATURATED IBC (test code = 91891) 356 UG/DL 112-347 H CALC TOTAL IBC (test code = 2076) 407 UG/DL 250-450 CALC % IRON SAT (test code = 2079) 13 % 20-50 L [id number] 00:59:24* Test Item Value Reference Range Interpretation Comme nts FERRITIN (test code = 2075) 20 NG/ML 13-200 HEMOGLOBIN [id number] 03:08:40* Test Item Value Reference Range Interpretation Comme nts HEMOGLOBIN A1c (test code = 21842) 5.5 % 4.2-5.6 CBC W/AUTO DIFF WITH [id number] 02:29:36* Test Item Value Reference Range Interpretation [...] = 1065) 0.0 /100 WBC'S See_Comment [Automated messa ge] The system which [...] 0.00-0.10 ABS NUCLEATED RBCS (test code = 32566) 0.00 K/UL 0.00-0.11 DRUGS OF [id number] 05:03:00* Test Item Value Reference Range Interpretation [...] 200 ng/mL Opiates 300 ng/mL URINALYSIS WITH [id number] 04:56:00* Test Item Value Reference Range Interpretation [...] (test code = USPERM) /HPF NONE URINE [id number] 04:53:00* Test Item Value Reference Range Interpretation [...] the FDA and the [employer] of the [place] [employer] (CAP) are more stringent than those required for this test. Therefore, the result should be interpreted with caution and close attention to other clinical and epidemiological data [id number] 16:00:00* Test Item Value Reference Range Interpretation Comme nts SALICYLATE (test code = 94B) <3.0 mg/dL 15.0-30.0 L LIVER [id number] 15:49:00* Test Item Value Reference Range Interpretation [...] code = 30A) 16 IU/L See_Comment [Automated [employer] ge] The system which generated this result transmitted reference range: <=33. The reference range was not used to interpret this result as normal/abnormal. ALT (test code = 31A) <7 IU/L 10-49 L [id number] 15:48:00* Test Item Value Reference Range Interpretation [...] to interpret this result as normal/abnormal. 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 Old healed fractures of the distal tibia and fibular noted.Soft tissues: Unremarkable.IMPRESSION: No acute findings.Electronically signed by: Nikko Santiago MD 11/04/2022 3:10 PM CDT [id number] OF ABUSE SCREEN [id number] 00:33:00* Test Item Value Reference Range Interpretation [...] 300 ng/mL UA RFLX MICR CULT IF [id number] 00:30:00* Test Item Value Reference Range Interpretation [...] culture: Suprapubic PainSpecimen Description: CLEAN CATCHBASIC METABOLIC [id number] 00:18:00* Test Item Value Reference Range Interpretation [...] 8.9 mg/dl 8.0-10.5 N HEPATIC FUNCTION PANEL [id number] 00:18:00* Test Item Value Reference Range Interpretation [...] ALKP) 113 Units/L 50.0-136.0 N HCG SERUM [id number] 00:18:00* Test Item Value Reference Range Interpretation Comme nts HCG SERUM QUAL (test code = HCGQL) NEGATIVE NEGATIVE [id number] 00:18:00* Test Item Value Reference Range Interpretation Comme nts ALCOHOL (test code = ALC) 0.00 gm/dL 0.00-0.00 N ETHYL ALCOHOL VA LUES - INTERPRETATION: 0.050 GM/DL - NOT INTOXICATED 0.100 GM/DL - INTOXICATED 0.350-0.450 GM/DL - SEVERELY INTOXICATED 0.550 GM/DL- FATAL INTOXICATION Coronavirus 2019 nCoV [id number] 00:09:00* Test Item Value Reference Range Interpretation Comme nts Coronavirus 2019 nCoV Bedside (test code = LZLWG64ORYTD) Negative NEGATIVE Negative results should be treated as presumptive and ifinconsistent with clinical signs and symptoms, or necessaryfor patient management, should be tested with an alternativemolecular assay. Negative results do not preclude RQWA-HoY-4dlerpuund and should not be used as the sole basis forpatient management decisions. Negative results should beconsidered in the context of a patient's recent exposures,history, presence of clinical signs and symptoms consistentwith COVID-19. CBC W/AUTO [id number] 23:58:00* Test Item Value Reference Range Interpretation [...] X10 3uL 0.00-0.01 N COMP. METABOLIC PANEL (33662)2022-09-07 02:12:41* Test Item Value Reference Range Interpretation Comme nts NA (test code = 9919023609) 133 mmol/L 135-145 L K (test code = 1350797074) 4.4 mmol/L 3.5-5.0 CL (test code = 1898857218) 102 mmol/L 98-108 CO2 TOTAL (test code = 7123458703) 25 mmol/L 23-31 AGAP (test code = 5927449117) 6 2-16 BUN (test code = 9882013663) 22 mg/dL 7-23 GLUCOSE (test code = 8597310443) 97 mg/dL 70-110 CREATININE (test code = 1803684364) 0.40 mg/dL 0.50-1.04 L TOTAL BILI (test code = 0559502528) 0.3 mg/dL 0.1-1.1 CALCIUM (test code = 9042319580) 8.9 mg/dL 8.6-10.6 T PROTEIN (test code = 9364709963) 7.7 g/dL 6.3-8.2 ALBUMIN (test code = 7268948492) 4.0 g/dL 3.5-5.0 ALK PHOS (test code = 6035675202) 104 U/L 34-122 ALTv (test code = 1742-6) 15 U/L 5-35 AST(SGOT) (test code = 0195285148) 22 U/L 13-40 eGFR (test code = 4809273602) 170.4 mL/min/1.73m2 HANNAH (test code = HANNAH) [...] imaging tests). Lab Interpretation (test code = 26424-3) Abnormal [facility] WITH [id number] 02:01:20* Test Item Value Reference Range Interpretation Comme nts WBC (test code = 6690-2) 6.17 See_Comment [Automated [employer]] The system which generated this result transmitted reference range: 4.30 - 11.10 10*3/?L. The reference range was not used to interpret this result as normal/abnormal. RBC (test code = 789-8) 3.73 See_Comment L [Automated [employer]] The system which generated this result transmitted [...] 32.9 g/dL 31.6-35.1 RDW-SD (test code = 50478-7) 48.1 fL 39.0-49.9 RDW-CV (test code = 788-0) 14.7 % 12.0-15.5 PLT (test code = 777-3) 272 See_Comment [Automated messa ge] The system which generated this result transmitted reference range: 166 - 358 10*3/?L. The reference range was not used to interpret this result as normal/abnormal. MPV (test code = 87128-5) 9.6 fL 9.5-12.9 NRBC/100 WBC (test code = 8658167163) 0.0 See_Comment [Automated [employer] ssage] The system which generated this result transmitted reference range: 0.0 - 10.0 /100 WBCs. The reference range was not used to interpret this result as normal/abnormal. NRBC x10^3 (test code = 0661253219) See_Comment [Automated [employer]] The system which generated this result transmitted reference range: 10*3/?L. The reference range was not used to interpret this result as normal/abnormal. GRAN MAT (NEUT) % (test code = 770-8) 42.2 % IMM GRAN % (test code = 1697665597) 0.20 % LYMPH % (test code = 736-9) 38.2 % MONO % (test code = 5905-5) 12.6 % EOS % (test code = 713-8) 5.8 % BASO % (test code = 706-2) 1.0 % GRAN MAT x10^3(ANC) (test code = 5703158026) 2.60 10*3/uL 1.88-7.09 IMM GRAN x10^3 (test code = 8588222526) 0.00-0.06 LYMPH x10^3 (test code = 731-0) 2.36 10*3/uL 1.32-3.29 MONO x10^3 (test code = 742-7) 0.78 10*3/uL 0.33-0.92 EOS x10^3 (test code = 711-2) 0.36 10*3/uL 0.03-0.39 BASO x10^3 (test code = 704-7) 0.06 10*3/uL 0.01-0.07 Lab Interpretation (test code = 74532-2) Abnormal [facility] [id number] 22:34:12 Impression: 1. ?No acute intracranial process. 2. ?Diffuse [...] no evidence of intracranial hemorrhage, mass, acute infarction ,midline shift or mass effect. Included portions of the orbits are withinnormal limits. The mastoidair cells, paranasal sinuses are within normallimits. [facility], [...] he patient. Please correlate with history and physicalexamination.[facility] CERV[facility] SP[facility] 2 [id number] 22:29:40No acute osseous abnormality. Preliminary Report Dictated by Resident: Carl Womack I, Chi Antonio MD., have reviewed this study and [...] limits.IMPRESSIONNo acute osseous abnormality.Preliminary Report Dictated by Resident:Carl Braden, Chi Antonio MD., have reviewed this study and agree with theabove report.[facility] WITH [id number] 21:46:00* Test Item Value Reference Range Interpretation [...] 32.2 g/dL 31.6-35.1 RDW-SD (test code = 99471-6) 45.1 fL 39-49.9 RDW-CV (test code = 788-0) 14.6 % 12-15.5 PLT (test code = 777-3) See_Comment L [Automated messa ge] The system which generated this result transmitted reference range: 166 - 358 10*3/?L. The reference range was not used to interpret this result as normal/abnormal. MPV (test code = 11039-5) 9.0 fL 9.5-12.9 L NRBC/100 WBC (test code = 2404393677) See_Comment [Automated me ssage] The system which generated this result transmitted reference range: 0.0 - 10.0 /100 WBCs. The reference range was not used to interpret this result as normal/abnormal. NRBC x10^3 (test code = 1576349326) <0.01 See_Comment [Automated messa ge] The system which generated this result transmitted reference range: 10*3/?L. The reference range was not used to interpret this result as normal/abnormal. GRAN MAT (NEUT) % (test code = 770-8) 51.3 % IMM GRAN % (test code = 9996387074) 0.40 % LYMPH % (test code = 736-9) 24.4 % MONO % (test code = 5905-5) 23.1 % EOS % (test code = 713-8) 0.4 % BASO % (test code = 706-2) 0.4 % GRAN MAT x10^3(ANC) (test code = 6395785069) 2.48 10*3/uL 1.88-7.09 IMM GRAN x10^3 (test code = 5069069658) <0.03 0-0.06 LYMPH x10^3 (test code = 731-0) 1.18 10*3/uL 1.32-3.29 L MONO x10^3 (test code = 742-7) 1.12 10*3/uL 0.33-0.92 H EOS x10^3 (test code = 711-2) <0.03 0.03-0.39 L BASO x10^3 (test code = 704-7) <0.03 0.01-0.07 Lab Interpretation (test code = 18280-0) Abnormal [facility] 2 [id number] 03:28:03No acute osseous abnormality. Preliminary Report Dictated [...] this study and agree withthe above report. [facility]pro[facility] [id number] 08:03:22* Test Item Value Reference Range Interpretation Comme nts Valproic Acid Level (test co de = Valproic Acid Level) 57.6 ug/mL(g) 50.0-100.0 Hemoglobin [id number] 09:36:00* Test Item Value Reference Range Interpretation Comme nts Hemoglobin A1c (test code = Hemoglobin A1c) 5.0 % 4.8-5.9 Non Diabetic 4.8-5.9%Diabetic <7.0% CT Shoulder w/o Contrast [id number] 16:49:13Patient: BHUMIKA JONES Date/Time01/09/2019 16:14 CDTReason for [...] lower lobe.LOCATION: R16 Final Dictated by: MD Lesetr Adam FDictated DT/TM: 01/09/2019 4:43 pmSigned by: MD Lester Adam FSigned (Electronic Signature): 01/09/2019 4:49 pmRPR [id number] 21:33:20* Test Item Value Reference Range Interpretation [...] 04-23-2020 N XR Shoulder Complete 2+ Views [id number] 15:41:25Patient: BHUMIKA JONES Date/Time01/07/2019 15:25 CDTReason for [...] CSigned (Electronic Signature): 01/07/2019 3:41 pmThyroid Stimulating [id number] 03:07:04* Test Item Value Reference Range Interpretation Comme nts TSH (test code = TSH) 9.650 mIU/mL 0.270-4.200 H Lipid [id number] 03:07:03* Test Item Value Reference Range Interpretation Comme nts Cholesterol Total (test code = Cholesterol Total) 199 mg/dL 0-200 RISK OF HEART DISEASEPublished by [place] Heart Association Analyte Optimal Borderline Increased RiskCHOL [...] is LDL/HDL Ratio=LDL Calc/HDL Chol HCG Qualitative [id number] 02:33:13* Test Item Value Reference Range Interpretation Comme nts HCG, Serum Qual (test code = HCG, Serum Qual) Negative Lot # (test code = Lot #) [id number] N Expiration Dt (test code = Expiration Dt) 2020-04-23 N Neg Control (test code = Neg Control) Negative Pos Control (test code = Pos Control) Positive Internal QC (test code = Int ernal QC) Acceptable Drugs of Abuse Urine [id number] 18:58:11* Test Item Value Reference Range Interpretation [...] = Cannabinoid Screen Ur) Negative Negative Alcohol [id number] 18:47:34* Test Item Value Reference Range Interpretation Comme nts Ethanol Level (test code = Ethanol Level) <0.00 g/dL 0.00-0.01 Intoxicated 0.08 0 g/dL or more Ethanol Inst (test code = Ethanol Inst) <0 N Comprehensive Metabolic [id number] 18:47:33* Test Item Value Reference Range Interpretation [...] A/G Ratio) 1.0 ratio N Comprehensive Metabolic [id number] 18:47:33* Test Item Value Reference Range Interpretation [...] is not provided, and the patient is -[place], multiply by 1.212. If sex is not [...] the National Kidney Foundation, http://nkdep.nih.gov Comprehensive Metabolic [id number] 18:47:33* Test Item Value Reference Range Interpretation [...] is not provided, and the patient is -[place], multiply by 1.212. If sex is not [...] is not provided, and the patient is -[place], multiply by 1.212. If sex is not [...] Kidney Foundation, http://nkdep.nih.gov Complete Blood Count with [id number] 18:15:23* Test Item Value Reference Range Interpretation [...] code = IPF) 0 % N Automated [id number] 18:15:23* Test Item Value Reference Range Interpretation Comme nts Neutro Auto (test code = Sunny tro Auto) 42.1 % 36.0-70.0 Lymph Auto (test code = Lymph Auto) 40.0 % 12.0-44.0 [place] Auto (test code = [place] Auto) 12.2 % 0.0-11.0 H Eos, Auto (test code = Eos, Auto) 4.9 % 0.0-7.0 Basophil Auto (test code = B asophil Auto) 0.6 % 0.0-2.0 Neutro Absolute (test code = Neutro Absolute) 2.2 x10 1.6-7.4 Lymph Absolute (test code = Lymph Absolute) 2.06 x10 .50-4.60 [place] Absolute (test code = M richa Absolute) .63 x10 .00-1.20 Eos Absolute (test code = Eo s Absolute) 0.25 x10 0.00-0.74 Baso Absolute (test code = B aso Absolute) 0.03 x10 0.00-0.21 IG [id number] 18:15:23* Test Item Value Reference Range Interpretation Comme nts IG (test code = IG) 0.2 % 0.0-5.0 IG Abs (test code = IG Abs) 0 x10 N"
--- NOTE | 2023-06-23 12:27 | EDPHYS ---
Physician Documentation [facility] Name: Sidra Hodges Age: 48 yrs Sex: Female : 1975 Arrival Date: 06/23/2023 Time: 12:12 Bed IW9 Private MD: ED Physician Yong Banks HPI: 06/23 12:22 This 48 yrs old Female presents to ER via EMS with complaints of Chest Pain. rn 12:22 Per EMS patient was calling 911 for a ride to [place]. Was found flagging vehicles down rn for a ride to [place] when police became involved. When police began to question patient she began to complain about chest pain without focal complaints. No trauma noted. Now patient does not want anything done.. Historical: - Allergies: 12:21 CARBAMAZEPINE DERIVATIVES; hb 12:21 Depakote; hb 12:21 Tegretol; hb - PMHx: 12:21 ADD/ADHD; Anxiety; Bipolar disorder; Chronic pain; hemorrhoids; Schizophrenia; Seizures;hb - Immunization history:: Adult Immunizations up to date. - Social history:: Smoking status: Patient denies any tobacco usage or history of. - History obtained from: EMS. Exam: 12:22 Constitutional: This is a well developed, well nourished patient who is awake, alert, rn and in no acute distress. Cardiovascular: Regular rate and rhythm. No pulse deficits. Respiratory: No increased work of breathing, no retractions or nasal flaring. Neuro: Awake and alert, GCS 15. Normal gait. Vital Signs: 12:19 BP 120 / 60; Pulse 66; Resp 20; Pulse Ox 100% ; hb MDM: 12:22 Differential diagnosis: anxiety. Data reviewed: nurses notes. Refusal of service: The rn patient/guardian displays adequate decision making capability and despite a detailed discussion of alternatives, benefits, risks, and consequences refuses: all lab tests, Medications, all X-rays. ED course: Patient refuses all care, walks out shortly after arrival by EMS. . 12:26 Patient medically screened. rn Administered Medications: No medications were administered Disposition Summary: 06/23/23 12:26 Discharge Ordered Notes: Location: Home rn Problem: new rn Symptoms: have improved rn Condition: Stable rn Diagnosis - Encounter for general adult medical examination without abnormal findings rn Followup: rn - With: Private Physician - When: As needed - Reason: Recheck today's complaints, Re-evaluation by your physician Forms: - Medication Reconciliation Form rn - Thank You Letter rn - Antibiotic rn wellness - Prescription Opioid Use rn - Patient Portal Instructions rn - Leadership Thank You Letter rn Signatures: Yong Banks MD MD rn Baxter, Heather, RN RN
--- NOTE | 2023-06-23 12:27 | ER ---
Nurse's Notes [facility] Name: Sidra Hodges Age: 48 yrs Sex: Female : 1975 Arrival Date: 06/23/2023 Time: 12:12 Bed IW9 Private MD: Diagnosis: Encounter for general adult medical examination without abnormal findings Presentation: 06/23 12:19 Chief complaint: EMS states: Called 911 wanting a ride to [place] this morning, was hb found by police trying to flag down traffic to get a ride to [place], when officer explained she needed to get out of the road and not to ask people for rides, she began complaining of chest pain, bit the inside of her lip and spit blood onto the street. VS WNL. Coronavirus screen: At this time, the client does not indicate any symptoms associated with coronavirus-19. Ebola Screen: No symptoms or risks identified at this time. Initial Sepsis Screen: Does the patient meet any 2 criteria? No. Patient's initial sepsis screen is negative. Does the patient have a suspected source of infection? No. Patient's initial sepsis screen is negative. Risk Assessment: Do you want to hurt yourself or someone else? Patient reports no desire to harm self or others. Onset of symptoms was June 23, 2023. 12:19 Method Of Arrival: EMS: [facility] hb 12:19 Acuity: CARMITA 4 hb Historical: - Allergies: 12:21 CARBAMAZEPINE DERIVATIVES; hb 12:21 Depakote; hb 12:21 Tegretol; hb - PMHx: 12:21 ADD/ADHD; Anxiety; Bipolar disorder; Chronic pain; hemorrhoids; Schizophrenia; Seizures;hb - Immunization history:: Adult Immunizations up to date. - Social history:: Smoking status: Patient denies any tobacco usage or history of. - History obtained from: EMS. Screenin:34 [facility] ED Fall Risk Assessment (Adult) Score/Fall Risk Level 0 - 2 = Low Risk hb Oriented to surroundings, Maintained a safe environment, Educated pt \T\ family on fall prevention, incl call for assistance when getting out of bed. Abuse screen: Denies threats or abuse. Denies injuries from another. Nutritional screening: No deficits noted. Tuberculosis screening: No symptoms or risk factors identified. Assessment: 12:20 General: Appears in no apparent distress. Behavior is calm, uncooperative. Pain: Denies hb pain. Neuro: Level of Consciousness is awake, alert, obeys commands. Cardiovascular: Denies chest pain. Respiratory: Respiratory effort is even, unlabored, Respiratory pattern is regular, symmetrical. GI: No signs and/or symptoms were reported involving the gastrointestinal system. : No signs and/or symptoms were reported regarding the genitourinary system. EENT: No signs and/or symptoms were reported regarding the EENT system. Derm: Skin is pink, warm \T\ dry. Musculoskeletal: No signs and/or symptoms reported regarding the musculoskeletal system. Vital Signs: 12:19 BP 120 / 60; Pulse 66; Resp 20; Pulse Ox 100% ; hb ED Course: 12:15 Patient arrived in ED. ts1 12:15 Yong Banks MD is Attending Physician. eb 12:21 Triage completed. hb 12:22 Arm band placed on. hb 12:34 No provider procedures requiring assistance completed. Patient did not have IV access hb during this emergency room visit. Administered Medications: No medications were administered Medication: 12:34 VIS not applicable for this client. hb Outcome: 12:26 Discharge ordered by . rn 12:35 Discharged to home ambulatory, hb 12:35 Condition: stable 12:35 Discharge instructions given to pt left before signing discharge packet 12:35 Patient left the ED. hb Signatures: Yong Banks MD MD rn Baxter, Heather, RN RN hb Botello, Elizabeth eb Simpson, Tanya, PAS PAS ts1
[2023-06-23 12:46] VITALS: BP 120/60; O2SAT 100
== END ==
LOC: ER 12:12
DX: Z71.1 Person with feared health complaint in whom no diagnosis is made (principal)
CPT/HCPCS: 99283

== ENCOUNTER → 2023-07-17 | Emergency (ER) | payer SELFPAY ==
[~2023-07-17] MED LIST: LIDOCAINE 1% 20 ML MDV ONE
--- OUTSIDE RECORDS SUMMARY | 2023-07-17 23:23 | XMS REPORT | Continuity of Care Document ---
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 OXcarbazepi ne (TRILEPTAL) 300 mg tablet 10-21 19:58: 10 Yes Take by mouth. [facility] divalproex ER (DEPAKOTE ER) 500 mg 24 hr tablet 10-21 19:58: 10 Yes 500mg Take 500 mg by mouth every 24 (twenty-fo ur) hours. [facility] OXcarbazepi ne (TRILEPTAL) 300 mg tablet 10-21 19:58: 10 Yes Take by mouth. [facility] divalproex ER (DEPAKOTE ER) 500 mg 24 hr tablet 10-21 19:58: 10 Yes 500mg Take 500 mg by mouth every 24 (twenty-fo ur) hours. [facility] OXcarbazepi ne (TRILEPTAL) 300 mg tablet 10-21 19:58: 10 Yes Take by mouth. [facility] divalproex ER (DEPAKOTE ER) 500 mg 24 hr tablet 10-21 19:58: 10 Yes 500mg Take 500 mg by mouth every 24 (twenty-fo ur) hours. [facility] OXcarbazepi ne (TRILEPTAL) 300 mg tablet 10-21 19:58: 10 Yes Take by mouth. [facility] divalproex ER (DEPAKOTE ER) 500 mg 24 hr tablet 10-21 19:58: 10 Yes 500mg Take 500 mg by mouth every 24 (twenty-fo ur) hours. [facility] OXcarbazepi ne (TRILEPTAL) 300 mg tablet 10-21 19:58: 10 Yes Take by mouth. [facility] divalproex ER (DEPAKOTE ER) 500 mg 24 hr tablet 10-21 19:58: 10 Yes 500mg Take 500 mg by mouth every 24 (twenty-fo ur) hours. [facility] OXcarbazepi ne (TRILEPTAL) 300 mg tablet 10-21 19:58: 10 Yes Take by mouth. [facility] naproxen (NAPROSYN) 500 mg tablet 10-21 00:00: 00 Yes 500mg Take 1 tablet by mouth 2 (two) times daily with meals. [facility] naproxen (NAPROSYN) 500 mg tablet 10-21 00:00: 00 Yes 500mg Take 1 tablet by mouth 2 (two) times daily with meals. [facility] naproxen (NAPROSYN) 500 mg tablet 10-21 00:00: 00 Yes 500mg Take 1 tablet by mouth 2 (two) times daily with meals. [facility] naproxen (NAPROSYN) 500 mg tablet 10-21 00:00: 00 Yes 500mg Take 1 tablet by mouth 2 (two) times daily with meals. [facility] naproxen (NAPROSYN) 500 mg tablet 10-21 00:00: 00 Yes 500mg Take 1 tablet by mouth 2 (two) times daily with meals. [facility] naproxen (NAPROSYN) 500 mg tablet 10-21 00:00: 00 Yes 500mg Take 1 tablet by mouth 2 (two) times daily with meals. [facility] naproxen (NAPROSYN) 500 mg tablet 10-21 00:00: 00 Yes 500mg Take 1 tablet by mouth 2 (two) times daily with meals. [facility] naproxen (NAPROSYN) 500 mg tablet 10-21 00:00: 00 Yes 500mg Take 1 tablet by mouth 2 (two) times daily with meals. [facility] naproxen (NAPROSYN) 500 mg tablet 10-21 00:00: 00 Yes 500mg Take 1 tablet by mouth 2 (two) times daily with meals. [facility] naproxen (NAPROSYN) 500 mg tablet 10-21 00:00: 00 Yes 500mg Take 1 tablet by mouth 2 (two) times daily with meals. [facility] naproxen (NAPROSYN) 500 mg tablet 10-21 00:00: 00 Yes 500mg Take 1 tablet by mouth 2 (two) times daily with meals. [facility] naproxen (NAPROSYN) 500 mg tablet 10-21 00:00: 00 Yes 500mg Take 1 tablet by mouth 2 (two) times daily with meals. [facility] naproxen (NAPROSYN) 500 mg tablet 10-21 00:00: 00 Yes 500mg Take 1 tablet by mouth 2 (two) times daily with meals. [facility] naproxen (NAPROSYN) 500 mg tablet 10-21 00:00: 00 Yes 500mg Take 1 tablet by mouth 2 (two) times daily with meals. [facility] naproxen (NAPROSYN) 500 mg tablet 10-21 00:00: 00 Yes 500mg Take 1 tablet by mouth 2 (two) times daily with meals. [facility] naproxen (NAPROSYN) 500 mg tablet 10-21 00:00: 00 Yes 500mg Take 1 tablet by mouth 2 (two) times daily with meals. [facility] naproxen (NAPROSYN) 500 mg tablet 10-21 00:00: 00 Yes 500mg Take 1 tablet by mouth 2 (two) times daily with meals. [facility] naproxen (NAPROSYN) 500 mg tablet 10-21 00:00: 00 Yes 500mg Take 1 tablet by mouth 2 (two) times daily with meals. [facility] naproxen (NAPROSYN) 500 mg tablet 10-21 00:00: 00 Yes 500mg Take 1 tablet by mouth 2 (two) times daily with meals. [facility] ibuprofen 600 mg tablet 8-16 00:00: 00 Yes 600mg Take 1 tablet by mouth every 8 (eight) hours as needed for Pain (scale 4-6). [facility] ibuprofen 600 mg tablet 02-06 00:00: 00 Yes 600mg Take 1 tablet by mouth every 8 (eight) hours as needed for Pain (scale 4-6). [facility] ibuprofen 600 mg tablet 02-06 00:00: 00 Yes 600mg Take 1 tablet by mouth every 8 (eight) hours as needed for Pain (scale 4-6). [facility] ibuprofen 600 mg tablet 02-06 00:00: 00 Yes 600mg Take 1 tablet by mouth every 8 (eight) hours as needed for Pain (scale 4-6). [facility] ibuprofen 600 mg tablet 02-06 00:00: 00 Yes 600mg Take 1 tablet by mouth every 8 (eight) hours as needed for Pain (scale 4-6). [facility] ibuprofen 600 mg tablet 02-06 00:00: 00 Yes 600mg Take 1 tablet by mouth every 8 (eight) hours as needed for Pain (scale 4-6). [facility] ibuprofen 600 mg tablet 02-06 00:00: 00 Yes 600mg Take 1 tablet by mouth every 8 (eight) hours as needed for Pain (scale 4-6). [facility] ibuprofen 600 mg tablet 02-06 00:00: 00 Yes 600mg Take 1 tablet by mouth every 8 (eight) hours as needed for Pain (scale 4-6). [facility] ibuprofen 600 mg tablet 02-06 00:00: 00 05-05 00:00 :00 No 600mg Take 1 tablet by mouth every 8 (eight) hours as needed for Pain (scale 4-6). [facility] hydrocortis one 2.5 % rectal cream 12-31 00:00: 00 Yes Insert into rectum 2 (two) times daily. [facility] hydrocortis one 2.5 % rectal cream 12-31 00:00: 00 Yes Insert into rectum 2 (two) times daily. [facility] hydrocortis one 2.5 % rectal cream 2017-0 7-10 00:00: 00 Yes Insert into rectum 2 (two) times daily. [facility] hydrocortis one 2.5 % rectal cream 2017-0 710 00:00: 00 Yes Insert into rectum 2 (two) times daily. [facility] of [facility] hydrocortis one 2.5 % rectal cream 2017-0 710 00:00: 00 Yes Insert into rectum 2 (two) times daily. [facility] hydrocortis one 2.5 % rectal cream 2017-0 710 00:00: 00 Yes Insert into rectum 2 (two) times daily. [facility] hydrocortis one 2.5 % rectal cream 2017-0 710 00:00: 00 Yes Insert into rectum 2 (two) times daily. [facility] hydrocortis one 2.5 % rectal cream 2016-0 710 00:00: 00 Yes Insert into rectum 2 (two) times daily. [facility] hydrocortis one 2.5 % rectal cream 2016-0 710 00:00: 00 Yes Insert into rectum 2 (two) times daily. [facility] hydrocortis one 2.5 % rectal cream 2017-0 710 00:00: 00 Yes Insert into rectum 2 (two) times daily. [facility] hydrocortis one 2.5 % rectal cream 2016-0 710 00:00: 00 Yes Insert into rectum 2 (two) times daily. [facility] hydrocortis one 2.5 % rectal cream 2017-0 710 00:00: 00 Yes Insert into rectum 2 (two) times daily. [facility] hydrocortis one 2.5 % rectal cream 2017-0 710 00:00: 00 Yes Insert into rectum 2 (two) times daily. [facility] hydrocortis one 2.5 % rectal cream 2017-0 7-10 00:00: 00 Yes Insert into rectum 2 (two) times daily. [facility] hydrocortis one 2.5 % rectal cream 2017-0 7-10 00:00: 00 Yes Insert into rectum 2 (two) times daily. [facility] hydrocortis one 2.5 % rectal cream 12-31 00:00: 00 Yes Insert into rectum 2 (two) times daily. [facility] hydrocortis one 2.5 % rectal cream 12-31 00:00: 00 Yes Insert into rectum 2 (two) times daily. [facility] hydrocortis one 2.5 % rectal cream 12-31 00:00: 00 Yes Insert into rectum 2 (two) times daily. [facility] hydrocortis one 2.5 % rectal cream 12-31 00:00: 00 Yes Insert into rectum 2 (two) times daily. [facility] hydrocortis one (ANUSOL-HC) 25 mg suppository 07-23 00:00: 00 Yes 25mg Insert 1 Suppositor y into rectum 2 (two) times daily. [facility] hydrocortis one (ANUSOL-HC) 25 mg suppository 07-23 00:00: 00 Yes 25mg Insert 1 Suppositor y into rectum 2 (two) times daily. [facility] hydrocortis one (ANUSOL-HC) 25 mg suppository 07-23 00:00: 00 Yes 25mg Insert 1 Suppositor y into rectum 2 (two) times daily. [facility] hydrocortis one (ANUSOL-HC) 25 mg suppository 07-23 00:00: 00 Yes 25mg Insert 1 Suppositor y into rectum 2 (two) times daily. [facility] hydrocortis one (ANUSOL-HC) 25 mg suppository 07-23 00:00: 00 Yes 25mg Insert 1 Suppositor y into rectum 2 (two) times daily. [facility] hydrocortis one (ANUSOL-HC) 25 mg suppository 07-23 00:00: 00 Yes 25mg Insert 1 Suppositor y into rectum 2 (two) times daily. [facility] hydrocortis one (ANUSOL-HC) 25 mg suppository 07-23 00:00: 00 Yes 25mg Insert 1 Suppositor y into rectum 2 (two) times daily. [facility] hydrocortis one (ANUSOL-HC) 25 mg suppository 07-23 00:00: 00 Yes 25mg Insert 1 Suppositor y into rectum 2 (two) times daily. [facility] hydrocortis one (ANUSOL-HC) 25 mg suppository 07-23 00:00: 00 Yes 25mg Insert 1 Suppositor y into rectum 2 (two) times daily. [facility] hydrocortis one (ANUSOL-HC) 25 mg suppository 07-23 00:00: 00 Yes 25mg Insert 1 Suppositor y into rectum 2 (two) times daily. [facility] hydrocortis one (ANUSOL-HC) 25 mg suppository 07-23 00:00: 00 Yes 25mg Insert 1 Suppositor y into rectum 2 (two) times daily. [facility] hydrocortis one (ANUSOL-HC) 25 mg suppository 07-23 00:00: 00 Yes 25mg Insert 1 Suppositor y into rectum 2 (two) times daily. [facility] hydrocortis one (ANUSOL-HC) 25 mg suppository 07-23 00:00: 00 Yes 25mg Insert 1 Suppositor y into rectum 2 (two) times daily. [facility] hydrocortis one (ANUSOL-HC) 25 mg suppository 07-23 00:00: 00 Yes 25mg Insert 1 Suppositor y into rectum 2 (two) times daily. [facility] hydrocortis one (ANUSOL-HC) 25 mg suppository 07-23 00:00: 00 Yes 25mg Insert 1 Suppositor y into rectum 2 (two) times daily. [facility] hydrocortis one (ANUSOL-HC) 25 mg suppository 07-23 00:00: 00 Yes 25mg Insert 1 Suppositor y into rectum 2 (two) times daily. [facility] hydrocortis one (ANUSOL-HC) 25 mg suppository 07-23 00:00: 00 Yes 25mg Insert 1 Suppositor y into rectum 2 (two) times daily. [facility] hydrocortis one (ANUSOL-HC) 25 mg suppository 07-23 00:00: 00 Yes 25mg Insert 1 Suppositor y into rectum 2 (two) times daily. [facility] hydrocortis one (ANUSOL-HC) 25 mg suppository 07-23 00:00: 00 Yes 25mg Insert 1 Suppositor y into rectum 2 (two) times daily. [facility] Vital Signs Vital Name Observation Time Observation Value Comments S ource Height 2022-11-04 14:04:00 149.86 CM Weight 2022-11-04 14:04:00 73.02 KG Systolic blood pressure 2022-09-24 17:32:00 130 mm[Hg] [facility] Diastolic blood pressure 2022-09-24 17:32:00 85 mm[Hg] [facility] Heart rate 2022-09-24 17:32:00 64 /min [facility] Body temperature 2022-09-24 17:32:00 36.83 Oma [facility] Respiratory rate 2022-09-24 17:32:00 18 /min [facility] Body weight 2022-09-24 17:32:00 74.844 kg [facility] BMI 2022-09-24 17:32:00 33.33 kg/m2 [facility] Oxygen saturation in Arterial blood by Pulse oximetry 2022-09-24 17:32:00 99 /min [facility] Systolic blood pressure 2022-09-10 23:55:00 111 mm[Hg] [facility] Diastolic blood pressure 2022-09-10 23:55:00 84 mm[Hg] [facility] Heart rate 2022-09-10 23:55:00 105 /min [facility] Body temperature 2022-09-10 23:55:00 37.33 Oma [facility] Respiratory rate 2022-09-10 23:55:00 19 /min [facility] Systolic blood pressure 2022-09-10 01:44:00 126 mm[Hg] [facility] Diastolic blood pressure 2022-09-10 01:44:00 81 mm[Hg] [facility] Heart rate 2022-09-10 01:44:00 78 /min [facility] Body temperature 2022-09-10 01:44:00 36.56 Oma [facility] Respiratory rate 2022-09-10 01:44:00 16 /min [facility] Body weight 2022-09-10 01:44:[address] [facility] BMI 2022-09-10 01:44:00 35.35 kg/m2 [facility] Oxygen saturation in Arterial blood by Pulse oximetry 2022-09-10 01:44:00 100 /min [facility] Systolic blood pressure 2022-09-07 05:37:00 119 mm[Hg] [facility] Diastolic blood pressure 2022-09-07 05:37:00 67 mm[Hg] [facility] Heart rate 2022-09-07 05:37:00 79 /min [facility] Respiratory rate 2022-09-07 05:37:00 16 /min [facility] Oxygen saturation in Arterial blood by Pulse oximetry 2022-09-07 05:37:00 98 /min [facility] Body temperature 2022-09-06 23:05:00 36.78 Oma [facility] Body weight 2022-09-06 23:05:[address] [facility] BMI 2022-09-06 23:05:00 35.35 kg/m2 [facility] Systolic blood pressure 2021-10-02 20:55:00 111 mm[Hg] [facility] Diastolic blood pressure 2021-10-02 20:55:00 70 mm[Hg] [facility] Heart rate 2021-10-02 20:55:00 79 /min [facility] Body temperature 2021-10-02 20:55:00 36.61 Oma [facility] Respiratory rate 2021-10-02 20:55:00 18 /min [facility] Body height 2021-10-02 20:55:[address] [facility] Body weight 2021-10-02 20:55:[address] [facility] BMI 2021-10-02 20:55:00 35.35 kg/m2 [facility] Oxygen saturation in Arterial blood by Pulse oximetry 2021-10-02 20:55:00 100 /min [facility] Systolic blood pressure 2021-05-05 19:20:00 102 mm[Hg] [facility] Diastolic blood pressure 2021-05-05 19:20:00 48 mm[Hg] [facility] Heart rate 2021-05-05 19:20:00 68 /min [facility] Body temperature 2021-05-05 19:20:00 36.94 Oma [facility] Respiratory rate 2021-05-05 19:20:00 18 /min [facility] Body weight 2021-05-05 19:20:00 79.379 kg [facility] BMI 2021-05-05 19:20:00 35.35 kg/m2 [facility] Oxygen saturation in Arterial blood by Pulse oximetry 2021-05-05 19:20:00 99 /min [facility] Systolic blood pressure 2019-12-15 22:12:00 138 mm[Hg] [facility] Diastolic blood pressure 2019-12-15 22:12:00 100 mm[Hg] [facility] Heart rate 2019-12-15 22:12:00 77 /min [facility] Body temperature 2019-12-15 22:12:00 37.06 Oma [facility] Respiratory rate 2019-12-15 22:12:00 20 /min [facility] Body weight 2019-12-15 22:12:00 79.379 kg [facility] BMI 2019-12-15 22:12:00 35.35 kg/m2 [facility] Oxygen saturation in Arterial blood by Pulse oximetry 2019-12-15 22:12:00 100 /min [facility] Systolic blood pressure 2019-12-15 22:12:00 138 mm[Hg] [facility] Diastolic blood pressure 2019-12-15 22:12:00 100 mm[Hg] [facility] Heart rate 2019-12-15 22:12:00 77 /min [facility] Body temperature 2019-12-15 22:12:00 37.06 Oma [facility] Respiratory rate 2019-12-15 22:12:00 20 /min [facility] Body weight 2019-12-15 22:12:[address] [facility] BMI 2019-12-15 22:12:00 35.35 kg/m2 [facility] Oxygen saturation in Arterial blood by Pulse oximetry 2019-12-15 22:12:00 100 /min [facility] Respiratory rate 2019-10-25 23:43:00 18 /min [facility] Body weight 2019-10-25 23:43:[address] [facility] BMI 2019-10-25 23:43:00 37.37 kg/m2 [facility] Respiratory rate 2019-10-25 23:43:00 18 /min [facility] Body weight 2019-10-25 23:43:[address] [facility] BMI 2019-10-25 23:43:00 37.37 kg/m2 [facility] Systolic blood pressure 2019-08-13 19:25:00 123 mm[Hg] [facility] Diastolic blood pressure 2019-08-13 19:25:00 88 mm[Hg] [facility] Heart rate 2019-08-13 19:25:00 78 /min [facility] Body temperature 2019-08-13 19:25:00 36.56 Oma [facility] Respiratory rate 2019-08-13 19:25:00 18 /min [facility] Body height 2019-08-13 19:25:[address] [facility] Body weight 2019-08-13 19:25:[address] [facility] BMI 2019-08-13 19:25:00 40.40 kg/m2 [facility] Oxygen saturation in Arterial blood by Pulse oximetry 2019-08-13 19:25:00 100 /min [facility] Systolic blood pressure 2019-08-13 19:25:00 123 mm[Hg] [facility] Diastolic blood pressure 2019-08-13 19:25:00 88 mm[Hg] [facility] Heart rate 2019-08-13 19:25:00 78 /min [facility] Body temperature 2019-08-13 19:25:00 36.56 Oma [facility] Respiratory rate 2019-08-13 19:25:00 18 /min [facility] Body height 2019-08-13 19:25:[address] [facility] Body weight 2019-08-13 19:25:[address] [facility] BMI 2019-08-13 19:25:00 40.40 kg/m2 [facility] Oxygen saturation in Arterial blood by Pulse oximetry 2019-08-13 19:25:00 100 /min [facility] Systolic blood pressure 2019-07-23 00:20:15 120 mm[Hg] [facility] Diastolic blood pressure 2019-07-23 00:20:15 74 mm[Hg] [facility] Heart rate 2019-07-23 00:20:15 82 /min [facility] Respiratory rate 2019-07-23 00:20:15 19 /min [facility] Oxygen saturation in Arterial blood by Pulse oximetry 2019-07-23 00:20:15 100 /min [facility] Body temperature 2019-07-22 19:41:00 36.33 Oma [facility] Body weight 2019-07-22 19:39:[address] [facility] BMI 2019-07-22 19:39:00 39.06 kg/m2 [facility] Systolic blood pressure 2019-07-23 00:20:15 120 mm[Hg] [facility] Diastolic blood pressure 2019-07-23 00:20:15 74 mm[Hg] [facility] Heart rate 2019-07-23 00:20:15 82 /min [facility] Respiratory rate 2019-07-23 00:20:15 19 /min [facility] Oxygen saturation in Arterial blood by Pulse oximetry 2019-07-23 00:20:15 100 /min [facility] Body temperature 2019-07-22 19:41:00 36.33 Oma [facility] Body weight 2019-07-22 19:39:00 90.719 kg [facility] BMI 2019-07-22 19:39:00 39.06 kg/m2 [facility] Systolic blood pressure 2019-07-14 03:33:00 127 mm[Hg] [facility] Diastolic blood pressure 2019-07-14 03:33:00 88 mm[Hg] [facility] Heart rate 2019-07-14 03:33:00 79 /min [facility] Respiratory rate 2019-07-14 03:33:00 16 /min [facility] Oxygen saturation in Arterial blood by Pulse oximetry 2019-07-14 03:33:00 97 /min [facility] Body weight 2019-07-14 02:16:[address] [facility] BMI 2019-07-14 02:16:00 39.06 kg/m2 [facility] Body temperature 2019-07-14 02:15:00 36.78 Oma [facility] Body weight 2019-07-10 20:39:00 90.719 kg [facility] BMI 2019-07-10 20:39:00 39.06 kg/m2 [facility] Systolic blood pressure 2019-01-21 23:34:00 133 mm[Hg] [facility] Diastolic blood pressure 2019-01-21 23:34:00 78 mm[Hg] [facility] Heart rate 2019-01-21 23:34:00 66 /min [facility] Body temperature 2019-01-21 23:34:00 36.94 Oma [facility] Respiratory rate 2019-01-21 23:34:00 18 /min [facility] Body height 2019-01-21 23:34:[address] [facility] Body weight 2019-01-21 23:34:00 68.04 kg [facility] BMI 2019-01-21 23:34:00 31.35 kg/m2 [facility] Oxygen saturation in Arterial blood by Pulse oximetry 2019-01-21 23:34:00 100 /min [facility] Systolic blood pressure 2019-01-21 23:34:00 133 mm[Hg] [facility] Diastolic blood pressure 2019-01-21 23:34:00 78 mm[Hg] [facility] Heart rate 2019-01-21 23:34:00 66 /min [facility] Body temperature 2019-01-21 23:34:00 36.94 Oma [facility] Respiratory rate 2019-01-21 23:34:00 18 /min [facility] Body height 2019-01-21 23:34:00 147.3 cm [facility] Body weight 2019-01-21 23:34:00 68.04 kg [facility] BMI 2019-01-21 23:34:00 31.35 kg/m2 [facility] Oxygen saturation in Arterial blood by Pulse oximetry 2019-01-21 23:34:00 100 /min [facility] Procedures Procedure Date / Time Performed Performing Clinician Source REFERRAL- REQUEST/RESPONSE 2023-06-05 06:01:00 Doctor Unassigned, [place] [facility] REFERRAL- REQUEST/RESPONSE 2023-05-20 06:01:00 Doctor Unassigned, [place] [facility] COMP. METABOLIC PANEL ([id number]) 2022-09-07 01:38:00 Tayo Boyd [facility] CBC WITH DIFF 2022-09-07 01:38:00 Tayo Boyd [facility] URINALYSIS 2022-09-07 01:38:00 [facility] <3 VW LEFT 2022-09-07 00:56:00 Tayo Boyd [facility] XR FOOT <3 VW LEFT 2022-09-07 00:56:00 Tayo Boyd [facility] CONSENT/REFUSAL FOR DIAGNOSIS AND TREATMENT 2022-09-06 22:08:37 Doctor Unassigned, [place] [facility] CT CERVICAL SPINE WO CONTRAST 2021-10-02 21:53:00 Javed Frank [facility] CT LUMBAR SPINE WO CONTRAST 2021-10-02 21:53:00 Javed Frank [facility] CT THORACIC SPINE WO CONTRAST 2021-10-02 21:53:00 Javed Frank [facility] XR FOREARM 2 VW RIGHT 2021-05-05 20:03:34 Jose Carlos Nunez [facility] XR WRIST 3+ VW RIGHT 2021-05-05 20:03:34 Chino Nunez [facility] NOTICE OF PRIVACY PRACTICES 2021-05-05 19:12:00 Doctor Unassigned, [place] [facility] CONSENT/REFUSAL FOR DIAGNOSIS AND TREATMENT 2021-05-05 19:11:19 Doctor Unassigned, [place] [facility] CONSENT/REFUSAL FOR DIAGNOSIS AND TREATMENT 2019-08-13 19:17:22 Doctor Unassigned, [place] [facility] CT HEAD WO CONTRAST 2019-07-22 22:24:37 Rachel Samayoa [facility] XR CERVICAL SPINE 2 VW 2019-07-22 21:59:59 Samantha Samayoa [facility] CBC WITH DIFFERENTIAL 2019-07-22 21:34:00 Yanira Samayoa [facility] XR CERVICAL SPINE 2 VW 2019-07-14 02:43:00 Ivory Owen [facility] XR ELBOW <3 VW LEFT 2019-07-14 02:43:00 Henry Owen [facility] XR KNEE <3 VW RIGHT 2019-07-14 02:43:00 Henry Owen [facility] XR SHOULDER <2 VW LEFT 2019-07-14 02:43:00 Ivory Owen [facility] Encounters Start Date/Time End Date/Time Encounter Type Admission Type Attending Clinicians Care Facility Care Department Encounter ID Source 2022-11-13 13:10:28 Inpatient [facility] [id number] [facility] 2022-11-05 09:23:13 Inpatient [facility] [id number] [facility] 2023-07-04 16:48:23 2023-07-04 16:48:23 Outpatient [facility] [id number] Henry Contreras 2023-06-18 10:35:36 2023-06-18 10:35:36 Outpatient [facility] [id number] Henry Contreras 2023-06-05 00:00:00 2023-06-05 00:00:00 Orders Only Doctor Unassigned, [place] [facility] 1.2.840.114 350.1.13.10 4.2.7.2.686 [id number] [facility] 2023-06-04 16:00:39 2023-06-04 16:00:39 Outpatient [facility] [id number] Henry Contreras 2023-05-24 15:38:52 2023-05-24 15:38:52 Outpatient [facility] [id number] Henry Contreras 2023-05-22 00:00:00 2023-05-22 00:00:00 Letter (Out) Neurology [facility] 1.2.840.114 350.1.13.10 4.2.7.2.686 [id number] [facility] 2023-05-20 00:00:00 2023-05-20 00:00:00 Orders Only Doctor Unassigned, [place] [facility] 1.2.840.114 350.1.13.10 4.2.7.2.686 [id number] [facility] 2023-05-17 15:07:14 2023-05-17 15:07:14 Outpatient [facility] [id number] Henry Contreras 2023-03-02 12:27:43 2023-03-02 12:27:43 Outpatient [facility] [id number] Henry Contreras 2023-01-09 17:11:26 2023-01-09 17:11:26 Outpatient [facility] [id number] Henry Contreras 2022-11-04 14:04:00 2022-11-05 11:09:00 Emergency E JESS PAIGE [facility] [id number] [facility] 2022-09-24 12:33:00 2022-09-24 12:51:00 Emergency Heri Snow [facility] 1.2.840.114 350.1.13.10 4.2.7.2.686 [id number] [facility] 2022-09-22 00:00:00 2022-09-22 00:00:00 Nurse Triage Madhavi Mcginnis [facility] 1.840.114 350.1.13.10 4.2.7.2.686 [id number] [facility] 2022-09-18 10:09:00 2022-09-19 14:28:00 Inpatient EM Marly Mendenhall [facility] [id number] [facility] 2022-09-16 22:50:00 2022-09-17 01:40:00 Emergency EM Guero Asim [facility] FABI [id number] [facility] 2022-09-14 14:52:00 2022-09-15 14:00:00 Inpatient EM Vladimir Forbes [facility] TELE [id number] [facility] 2022-09-13 09:34:00 2022-09-13 13:00:00 Emergency EM Brad Woodall [facility] FABI [id number] [facility] 2022-09-10 23:39:00 2022-09-11 11:28:00 [facility] [id number] [facility] 2022-09-10 18:57:00 2022-09-10 20:20:00 Emergency Lisa Morfin [facility] 1..840.114 350.1.13.10 4.2.7.2.686 [id number] [facility] 2022-09-10 18:57:00 2022-09-10 20:20:00 Emergency SANDRITA CHÁVEZ [facility] [id number] [facility] 2022-09-09 20:45:00 2022-09-09 22:46:00 Emergency X SANDRITA [facility] ERT [id number] [facility] 2022-09-09 20:45:00 2022-09-09 22:46:00 Emergency Sandrita Key [facility] 1.2.840.114 350.1.13.10 4.2.7.2.686 [id number] [facility] 2022-09-06 18:09:00 2022-09-07 00:51:00 Emergency X [facility] ERT [id number] [facility] 2022-09-06 18:09:00 2022-09-07 00:51:00 Emergency Oliver Tayo [facility] 1.2.840.114 350.1.13.10 4.2.7.2.686 [id number] [facility] 2022-08-21 14:11:33 2022-08-21 14:11:33 Outpatient [facility] [id number] Henry Quiles Lapwai 2022-07-17 15:03:48 2022-07-17 15:03:48 Outpatient [facility] [id number] Henry Quiles Ben 2021-10-02 15:56:00 2021-10-02 19:00:00 Emergency X [facility] ERT [id number] [facility] 2021-10-02 15:56:00 2021-10-02 19:00:00 Emergency Javed Frank [facility] 1.2.840.114 350.1.13.10 4.2.7.2.686 [id number] [facility] 2021-05-05 13:22:00 2021-05-05 14:48:00 Emergency X [facility] ERT [id number] [facility] 2021-05-05 13:22:00 2021-05-05 14:48:00 Emergency Deon Nunez [facility] 1.2.840.114 350.1.13.10 4.2.7.2.686 [id number] [facility] 2021-05-05 00:00:00 2021-05-05 00:00:00 Orders Only Doctor Unassigned, [place] [facility] 1.2.840.114 350.1.13.10 4.2.7.2.686 [id number] [facility] 2019-12-15 17:11:56 2019-12-15 18:04:00 [facility] 1.2.840.114 350.1.13.10 4.2.7.2.686 [id number] 2019-12-15 17:11:56 2019-12-15 18:04:00 [facility] 1.2.840.114 350.1.13.10 4.2.7.2.686 [id number] [facility] 2019-12-15 17:11:56 2019-12-15 17:11:56 Emergency X Kp GILLILAND ERT [id number] [facility] 2019-10-25 18:31:31 2019-10-25 19:21:00 Emergency Kristin Miller [facility] 1.2.840.114 350.1.13.10 4.2.7.2.686 [id number] 2019-10-25 18:31:31 2019-10-25 19:21:00 Emergency Kristin Miller [facility] 1.2.840.114 350.1.13.10 4.2.7.2.686 [id number] [facility] 2019-10-25 18:31:31 2019-10-25 18:31:31 Emergency X [facility] ERT [id number] [facility] 2019-08-13 13:30:00 2019-08-13 14:36:00 Emergency Floridalma Evans [facility] 1.2.840.114 350.1.13.10 4.2.7.2.686 [id number] 2019-08-13 13:30:00 2019-08-13 14:36:00 Emergency Floridalma Evans [facility] 1.2.840.114 350.1.13.10 4.2.7.2.686 [id number] [facility] 2019-08-13 13:30:00 2019-08-13 14:36:00 Emergency X [facility] ERT [id number] [facility] 2019-07-22 13:42:11 2019-07-22 19:02:00 Emergency Unknown, Attending Lisa Morfin [facility] 1.2.840.114 350.1.13.10 4.2.7.2.686 [id number] 2019-07-22 13:42:11 2019-07-22 19:02:00 Emergency X [facility] ERT [id number] [facility] 2019-07-22 13:42:11 2019-07-22 19:02:00 Emergency Unknown, Attending Lisa Morfin [facility] 1.2.840.114 350.1.13.10 4.2.7.2.686 [id number] [facility] 2019-07-13 20:17:19 2019-07-13 21:48:00 Emergency X [facility] ERT [id number] [facility] 2019-07-13 20:17:19 2019-07-13 21:48:00 Emergency Trena Henry [facility] 1.2.840.114 350.1.13.10 4.2.7.2.686 [id number] [facility] 2019-07-10 14:26:03 2019-07-10 16:33:00 Emergency X [facility] ERT [id number] [facility] 2019-07-10 14:26:03 2019-07-10 16:33:00 Emergency Debbie Payton [facility] 1.2.840.114 350.1.13.10 4.2.7.2.686 [id number] [facility] 2019-07-04 19:09:02 2019-07-04 22:51:00 Emergency X [facility] ERT [id number] [facility] 2019-06-30 10:33:08 2019-06-30 13:10:00 Emergency X [facility] ERT [id number] [facility] 2019-05-25 11:58:19 2019-05-25 15:37:00 Emergency X [facility] ERT [id number] [facility] 2019-04-09 22:29:37 2019-04-09 23:28:00 Emergency X [facility] ERT [id number] [facility] 2019-01-21 18:38:01 2019-01-21 19:59:00 Emergency Le Ramirez [facility] 1.2.840.114 350.1.13.10 4.2.7.2.686 [id number] 2019-01-21 18:38:01 2019-01-21 19:59:00 Emergency Le Ramirez [facility] 1.2.840.114 350.1.13.10 4.2.7.2.686 [id number] [facility] Results Test Description Test Time Test Comments Results Result Co mments Source COMPREHENSIVE METABOLIC [id number] 23:46:03* Test Item Value Reference Range Interpretation Comme nts GLUCOSE (test code = 2217) 97 MG/DL 70-99 BUN (test code = 2208) 7 MG/DL 6-20 CREATININE (test code = 2214) 0.61 MG/DL 0.60-1.30 eGFR (2020 CKD-EPI) (test code = 05104) 110 ML/MIN/1.73 >60 CALC BUN/CREAT (test code = 2234) 11 RATIO 6-28 SODIUM (test code = 2230) 132 MEQ/L 133-146 L POTASSIUM (test code = 2227) 4.1 MEQ/L 3.5-5.4 CHLORIDE (test code = 2214) 95 MEQ/L 95-107 CARBON DIOXIDE (test code = 2205) 26 MEQ/L 19-31 CALCIUM (test code = 2208) 9.5 MG/DL 8.5-10.5 PROTEIN, TOTAL (test code = 2228) 7.9 G/DL 6.1-8.3 ALBUMIN (test code = 2200) 3.8 G/DL 3.5-5.2 CALC GLOBULIN (test code = 2239) 4.1 G/DL 1.9-3.7 H CALC A/G RATIO (test code = 2233) 0.9 RATIO 1.0-2.6 L BILIRUBIN, TOTAL (test code = 2206) 0.2 MG/DL <=1.2 ALKALINE PHOSPHATASE (test code = 2203) 70 U/L 40-125 AST (test code = 2217) 20 U/L 9-40 ALT (test code = 2218) 13 U/L 5-40 CBC W/AUTO DIFF WITH [id number] 08:48:44* Test Item Value Reference Range Interpretation [...] 0.00-0.10 ABS NUCLEATED RBCS (test code = 92281) 0.00 K/UL 0.00-0.11 UNLESS OTHER MONTOYA INDICATED, ALL TESTING PERFORMED AT [facility] [address] [place] [address] BULLARD OPERATOR: JATIN FELIPE M.D. CLIA NUMBER [id number] [place]. [id number] 01:13:06* Test Item Value Reference Range Interpretation Comme nts TRANSFERRIN (test code = 4936) 315 MG/DL 200-360 UNLESS OTHERWISE INDICATED, ALL TESTING PERFORMED AT [facility] [address] [place] [address] BULLARD OPERATOR: JATIN FELIPE M.D. CLIA NUMBER [id number] [place]. [id number] LIPID [id number] 01:12:48* Test Item Value Reference Range Interpretation [...] SPECIMENS. FOR MOREINFORMATION, SEE CLIENT ANNOUNCEMENT AT [email or web address] RISK RATIO LDL/HDL (test code = 2237) 1.34 RATIO <3.22 COMPREHENSIVE METABOLIC [id number] 01:12:48* Test Item Value Reference Range Interpretation Comme nts GLUCOSE (test code = 2216) 92 MG/DL 70-99 BUN (test code = 2207) 15 MG/DL 6-20 CREATININE (test code = 221) 0.65 MG/DL 0.60-1.30 eGFR (2020 CKD-EPI) (test code = 42296) 108 ML/MIN/1.73 >60 CALC BUN/CREAT (test code = 2235) 23 RATIO 6-28 SODIUM (test code = 223) 135 MEQ/L 133-146 POTASSIUM (test code = 2228) 4.2 MEQ/L 3.5-5.4 CHLORIDE (test code = 2215) 99 MEQ/L 95-107 CARBON DIOXIDE (test code = 220) 24 MEQ/L 19-31 CALCIUM (test code = [...] 73 U/L 40-125 AST (test code = 2218) 15 U/L 9-40 ALT (test code = 2219) 7 U/L 5-40 IRON BINDING CAPACITY AND IRON AND % [id number] 01:12:48* Test Item Value Reference Range Interpretation Comme nts IRON, SERUM (test code = 2222) 51 UG/DL 37-145 UNSATURATED IBC (test code = 83485) 356 UG/DL 112-347 H CALC TOTAL IBC (test code = 2077) 407 UG/DL 250-450 CALC % IRON SAT (test code = 2079) 13 % 20-50 L [id number] 00:59:24* Test Item Value Reference Range Interpretation Comme nts FERRITIN (test code = 2075) 20 NG/ML 13-200 HEMOGLOBIN [id number] 03:08:40* Test Item Value Reference Range Interpretation Comme nts HEMOGLOBIN A1c (test code = 04742) 5.5 % 4.2-5.6 CBC W/AUTO DIFF WITH [id number] 02:29:36* Test Item Value Reference Range Interpretation [...] 0.00-0.10 ABS NUCLEATED RBCS (test code = 92435) 0.00 K/UL 0.00-0.11 DRUGS OF [id number] 05:03:00* Test Item Value Reference Range Interpretation [...] 200 ng/mL Opiates 300 ng/mL URINALYSIS WITH [id number] 04:56:00* Test Item Value Reference Range Interpretation [...] (test code = USPERM) /HPF NONE URINE [id number] 04:53:00* Test Item Value Reference Range Interpretation [...] the FDA and the [employer] (CAP) are more stringent than those required for this test. Therefore, the result should be interpreted with caution and close attention to other clinical and epidemiological data [id number] 16:00:00* Test Item Value Reference Range Interpretation Comme nts SALICYLATE (test code = 94B) <3.0 mg/dL 15.0-30.0 L LIVER [id number] 15:49:00* Test Item Value Reference Range Interpretation [...] code = 30A) 16 IU/L See_Comment [Automated [place] [employer]] The system which generated this result transmitted reference range: <=33. The reference range was not used to interpret this result as normal/abnormal. ALT (test code = 31A) <7 IU/L 10-49 L [id number] 15:48:00* Test Item Value Reference Range Interpretation Comme nts ACETAMINPH (test code = 94M) <0.2 mg/dL 1.2-2.5 L ALCOHOL BLOOD (ETOH)2022-11-04 15:48:00* Test Item Value Reference Range Interpretation Comme nts ETOH (test code = HALC) ETHANOL The result is to be used only for medical purposes ALCOHOL (test code = 56A) <10 mg/dL See_Comment [Automated [place] [employer]] The system which generated this result transmitted reference range: <=10. The reference range was not used to interpret this result as normal/abnormal. 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 Old healed fractures of the distal tibia and fibular noted.Soft tissues: Unremarkable.IMPRESSION: No acute findings.Electronically signed by: Nikko Santiago MD 11/04/2022 3:10 PM CDT [id number] BEDSIDE [id number] 11:51:00* Test Item Value Reference Range Interpretation Comme nts GLUCOSE BEDSIDE TESTING (karen t code = GLUBED) 79 MG/DL 70-119 N GLUCOSE BEDSIDE [id number] 06:23:00* Test Item Value Reference Range Interpretation Comme nts GLUCOSE BEDSIDE TESTING (karen t code = GLUBED) 80 MG/DL 70-119 N BASIC METABOLIC [id number] 05:12:00* Test Item Value Reference Range Interpretation [...] 2.0 <2.0 indicates None DetectedPerformed At: [facility] [address] [id number] Michael Argueta MD Ph:[phone] GLUCOSE BEDSIDE [id number] 19:51:00* Test Item Value Reference Range Interpretation Comme nts GLUCOSE BEDSIDE TESTING (karen t code = GLUBED) 129 MG/DL 70-119 H OSMOLALITY [id number] 17:56:00* Test Item Value Reference Range Interpretation Comme nts OSMOLALITY SERUM (test code = OSMO) 269 mOsm/kg 275-300 L THYROID STIMULATING [id number] 17:56:00* Test Item Value Reference Range Interpretation Comme nts THYROID STIMULATING HORMONE (test code = TSH) 4.190 mc IU/ML 0.340-4.820 N GLUCOSE BEDSIDE [id number] 15:49:00* Test Item Value Reference Range Interpretation [...] code = VALP) 37.5 mcG/ML 50.0-100.0 L [id number] 14:26:00* Test Item Value Reference Range Interpretation Comme nts AMMONIA (test code = AMM) 29.0 mcMOL/L 11.0-32.0 N GLUCOSE BEDSIDE [id number] 11:51:00* Test Item Value Reference Range Interpretation Comme nts GLUCOSE BEDSIDE TESTING (karen t code = GLUBED) 88 MG/DL 70-119 N GLYCOSYLATED HEMOGLOBIN (HA1C)2022-09-18 06:53:00* Test Item Value Reference Range Interpretation Comme nts GLYCOSYLATED HEMOGLOBIN (HA1 C) (test code = GLYHGB) 5.2 % IS-A1C 4.5-5.6 N ESTIMATED AVERAGE [id number] 06:53:00* Test Item Value Reference Range Interpretation [...] to interpret this result as normal/abnormal. UR [id number] 21:28:00* Test Item Value Reference Range Interpretation Comme nts UR SODIUM RANDOM (test code = JESUSITA) 93 mmol/L 40-200 N UR POTASSIUM RANDOM (test code = KU) 54.8 mmol/L 25-125 N NO ESTABLISHED NORMAL RANGES FOR RANDOM SPECIMENS. UR CHLORIDE RANDOM (test code = CLU) 164 mmol/L 110-150 H UR OSMOLALITY [id number] 21:28:00* Test Item Value Reference Range Interpretation Comme nts UR OSMOLALITY RANDOM (test c ode = OSMOU) 475 mOsm/kg 100-1400 N CBC W/O [id number] 20:05:00* Test Item Value Reference Range Interpretation [...] = MPV) 9.5 fL 6.8-11.2 N LACTIC [id number] 19:35:00* Test Item Value Reference Range Interpretation Comme nts LACTIC ACID (test code = LACT) 1.0 mmol/L 0.4-2.0 N HCG SERUM [id number] 19:31:00* Test Item Value Reference Range Interpretation Comme nts HCG SERUM QUAL (test code = HCGQL) Negative SCREEN NEG - CT HEAD/BRAIN W/O [id number] 18:59:00 [facility] : 1975 Sex: F Patient Name: BHUMIKA JONES Unit No: [id number] EXAMS: CPT CODE: [id number] CT HEAD/BRAIN W/O CONT [id number] Location: H3 CT head, conducted on 09/17/22 at 1837 hours COMPARISON EXAMS:Head CT exam of 09/17/22 at 00:06 hours TECHNIQUE: CT examination of the brain was performed without contrast on [facility] scanner. Scanning conducted from skull base [...] seen. In particular, no subarachnoid hemorrhage is cedric ntified. No intra or extra-axial masses. Bone windows unremarkable. No significant sinus disease isnoted. No acute territorial infarction is seen. IMPRESSION: Unremarkable CT examination of the brain without contrast. No significant change from the exam acquired earlier today. Electronically Sig darnell by Nati Hunt M.D. on 09/17/2022 at 1859 Reported and signed by: Nati Hunt M.D. CC: Valentina Samayoa MD Dictated Date/Time: 09/17/2022 (1858) Technologist: VERO Marie(R)(CT) CTDI: DLP: Trnscrpt: 09/17/2022 (1858) [email or web address] DENIZ [place] NAME: YAZMIN Ley[address] PHYS: Valentina Mattson MD [place] [address] : 1975 AGE: 47 SEX: F LOC: JOS[facility] 20 PHONE #: [phone] EXAM DATE: 09/17/2022 STATUS: ADM IN FAX #: [phone] RAD #: D/C DT PAGE 1 Signed Report Patient Name: BHUMIKA JONES Unit No: [id number] EXAMS: CPT CODE: [id number] CT HEAD/BRAIN W/O CONT 61364 (Continued) Orig Print D/T: S: 09/17/2022 (190) DENIZ Lugo NAME: [id number] PHYS: Valentina Mattson MD [place] [address] : 1975 AGE: 47 SEX: F LOC: B.ERMED 20 PHONE #: [phone] EXAM DATE: 09/17/2022 STATUS: ADM IN FAX #: [phone] #: D/C DT PAGE 2 Signed ReportURINALYSIS [id number] 16:28:00* Test Item Value Reference Range Interpretation [...] >0 /UL NONE-SQepi DRUGS OF ABUSE SCREEN [id number] 16:28:00* Test Item Value Reference Range Interpretation [...] interpret this result as normal/abnormal. TROP-I HIGH [id number] 16:26:00* Test Item Value Reference Range Interpretation [...] and URLs may vary bymethod. BASIC METABOLIC [id number] 16:25:00* Test Item Value Reference Range Interpretation [...] interpret this result as normal/abnormal. HEPATIC FUNCTION [id number] 16:25:00* Test Item Value Reference Range Interpretation [...] ode = CK) 92 Unit/L 26-192 N HYTWYJ1812-19-70 16:25:00* Test Item Value Reference Range Interpretation Comme nts LIPASE (test code = LIP) 57 Unit/L 114-286 L - CT HEAD/BRAIN W/O [id number] 00:32:00 [facility] BH[facility] JONES : 1975 Sex: F Patient Name: BHUMIKA JONES Unit No: [id number] EXAMS: CPT CODE: [id number] CT HEAD/BRAIN W/O CONT 58092 EXAM: - CT HEAD/BRAIN W/O CONT LOCATION: H57 HISTORY: 47 years- year old Female with sz TECHNIQUE: Computerized tomography images from the skull base to the vertex were obtained. Coronal andsagittal reformatted images are provided. This exam was performed according to our departmental dose- optimization program, which includes automated exposure control, adjustment of the mA and/or kV according to patient size and/or use of iterative reconstruction technique COMPARISON: 09/14/2022 FINDINGS: Brain: The brain parenchyma is unremarkable. There is no evidence of an acute territorial infarc t. There is no mass effect, midline shift, [...] Terry August CTDI: DLP: Trnscrpt: 09/17/2022 (31) [email or web address] DEINZ Lugo NAME: ROBERT[address] PHYS: IGNACIO.Deirdre - [place]im [place] [address] : 1975 AGE: 47 SEX: F LOC: GregorioERS PHONE #: [phone] EXAM DATE: 09/16/2022 STATUS: REG ER FAX #: [phone] RAD #: D/C DT PAGE 1 S igned Report Patient Name: SILAS JONESPCION Unit No: [id number] EXAMS: CPT CODE: [id number] CT HEAD/BRAIN W/O CONT 04987 (Continued) Orig Print D/T: S: 09/17/2022 (003) DENIZ Lugo NAME: JONES[address] PHYS: YASMIN - [place]im [place] [address] : 1975 AGE: 47 SEX: F LOC: B.ERS PHONE #: [phone] EXAM DATE: 09/16/2022STATUS: REG ER FAX #: [phone] RAD #: D/C DT PAGE 2 Signed Report TROP-I HIGH FOJLPKHEWCZ2871-59-71 00:13:00* Test Item Value Reference Range Interpretation [...] and URLs may vary bymethod. COMPREHENSIVE METABOLIC PTJUR0310-99-70 00:11:00* Test Item Value Reference Range Interpretation [...] interpret this result as normal/abnormal. CBC W/AUTO AZAW1583-78-27 23:59:00* Test Item Value Reference Range Interpretation [...] K/mm3 0.0-0.05 N - XR CHEST 1 P6207-56-24 23:34:00 [facility] BHUM[facility] JONES : 1975 [place]: [place]: St: PRE -- Patient Name: SILAS JONESPCION Unit No: [id number] EXAMS: CPT CODE: [id number] XR CHEST 1 V 61121 EXAMINATION: - XR CHEST 1 V CLINICAL [...] By: NadiyaJH12 Orig Print D/T: S: 09/16/2022 (1234) DENIZ Lugo NAME: ROB[address] PHYS: IGNACIO.Deirdre - Asim Jack [place], [place] [address] : 1975 AGE: 47 SEX: F LOC: B.ERS PHONE #: [phone] EXAMDATE: 09/16/2022 STATUS: PRE ER FAX #: [phone] RAD NO: DC Dt: PAGE 1 Signed ReportCARBAMAZEPINE (TEGRETOL) 2022-09-15 06:12:00* Test Item Value Reference Range Interpretation Comme nts CARBAMAZEPINE (TEGRETOL) (test code = CARB) 1.5 ug/mL 4.0-12.0 L In conjunction w ith other antiepileptic drugs Therapeutic 4.0 - 8.0 Toxicity 9.0 - 12.0 Carbamazepine alone Therapeutic 8.0 - 12.0 Detection Limit = 2.0 <2.0 indicates None DetectedPerformed At: [facility] [address] [id number] Michael Argueta MD Ph:[phone] VALPROIC ACID (DEPAKENE)2022-09-15 06:12:00* Test Item Value Reference Range Interpretation Comme nts VALPROIC ACID (DEPAKENE) (te st code = VALP) 80.6 mcG/ML 50.0-100.0 N COMPREHENSIVE METABOLIC QSMDJ2657-57-84 06:00:00* Test Item Value Reference Range Interpretation [...] interpret this result as normal/abnormal. CBC W/AUTO MPFX5493-36-19 05:37:00* Test Item Value Reference Range Interpretation [...] NRBC#) 0.00 K/mm3 0.0-0.05 N GLUCOSE BEDSIDE RYVPIQI9718-91-51 20:03:00* Test Item Value Reference Range Interpretation Comme nts GLUCOSE BEDSIDE TESTING (karen t code = GLUBED) 117 MG/DL 70-119 N DRUGS OF ABUSE SCREEN WL1600-52-16 11:42:00* Test Item Value Reference Range Interpretation [...] result as normal/abnormal. - CT HEAD/BRAIN W/O FYIL6205-55-92 11:37:00 [facility] BHUM[facility] JONES : 1975 Sex: F Patient Name: BHUMIKA JONES Unit No: [id number] EXAMS: CPT CODE: [id number] CT HEAD/BRAIN W/O CONT 97908 EXAMINATION: - CT HEAD/BRAIN W/O CONT COMPARISON: [...] MD; Jim Jaimes MD Dictated Date/Time: 09/14/2022 (1480) Technologist: ASUNCION CASTELLANO CTDI: DLP: Trnscrpt: 09/14/2022 (5440) t.SDR.AG38 [facility]: [facility] PHYS: Vladimir Menchaca MD [address] [place] [address] : 1975 AGE: 47 SEX: F [place] [address] LOC: NEHA Cintron PHONE #: [phone] EXAM DATE: 09/14/2022 STATUS: ADM IN FAX #: [phone] RAD #: D/C DT PAGE 1 Signed Report Patient Name: SILAS JONESPCION Unit No: [id number] EXAMS: CPT CODE: [id number] CT HEAD/BRAIN W/O CONT 59612 (Continued) Orig Print D/T: S: 09/14/2022 (1140) DENIZ Lugo NAME: SILAS JONESPCION [facility]AGING PHYS: Vladimir Menchaca MD [address] [place] [address] : 1975 AGE: 47 SEX: F [address] NO: [id number] LOC: NEHA Cintron PHONE #: [phone] EXAM DATE: 09/14/2022 STATUS: ADM IN FAX #: [phone] RAD #: D/C DT PAGE 2 Signed Report PT AND RCD9713-10-96 06:51:00* Test Item Value Reference Range Interpretation [...] AVOIDED DUE TO POSSIBLE HEPARINCONTAMINATION HCG SERUM HAHV8593-59-85 06:51:00* Test Item Value Reference Range Interpretation [...] CK) 268 Unit/L 26-192 H CBC W/AUTO XKJT8312-62-42 03:43:00* Test Item Value Reference Range Interpretation [...] = NRBC#) 0.00 K/mm3 0.0-0.05 N URINALYSIS ALMKNLPK4164-96-81 03:41:00* Test Item Value Reference Range Interpretation [...] RARE /LPF NONE - XR CHEST 2 D3667-85-21 02:06:00 [facility] BHUM[facility]A JONES : 1975 Sex: F FAX: TylerSuleman gipson RUTH [phone] [place]: [address] St: REG Patient Name: BHUMIKA JONES Unit No: [id number] EXAMS: CPT CODE: [id number] XR CHEST 2 V 81509 EXAM: - XR CHEST 2 V HISTORY: Chest pain. COMPARISON: None available time of interpretation. FINDINGS: PA and lateral view of the chest is provided. Heart size and va scularity are within normal limits. There is no evidence of a focal consolidation. There is no pleural effusion or pneumothorax. There is no definite acute osseous abnormality. IMPRESSION: No radiographic evidence of acute cardiopulmonary process. at 0206 Reported and signed by: Igor Almonte MD CC: Suleman Carvalho Dictated Date/Time: 09/14/2022 (0206)Technologist: SULEMAN JACQUES (R) Transcribed Date/Time: 09/14/2022 (020) By: NadiyaMKM4 Orig Print D/T: S: 09/14/2022 (0209) DENIZ Lugo NAME: BHUMIKA JONES [address] [place] [address] Bl PHYS: Suleman [place], [place] [address] : 1975 AGE: 47 SEX: F LOC: GingerJordenLISSETH PHONE #: [phone] EXAM DATE: 09/14/2022 STATUS: REG ER FAX #: [phone] RAD NO: DC Dt: PAGE 1 Signed ReportCOMPREHENSIVE METABOLIC UGKGG1607-22-24 12:49:00* Test Item Value Reference Range Interpretation [...] used to interpret this result as normal/abnormal. JTOMXQVZN9072-00-60 12:49:00* Test Item Value Reference Range Interpretation Comme nts MAGNESIUM (test code = MAG) 1.7 MG/DL 1.6-2.6 N CBC W/AUTO YLXH3552-64-77 12:36:00* Test Item Value Reference Range Interpretation [...] RARE /LPF NONE DRUGS OF ABUSE SCREEN DE1031-43-22 00:33:00* Test Item Value Reference Range Interpretation [...] 300 ng/mL UA RFLX MICR CULT IF KYDOFOWFD8627-23-16 00:30:00* Test Item Value Reference Range Interpretation [...] culture: Suprapubic PainSpecimen Description: CLEAN CATCHBASIC METABOLIC BUMGH0660-70-44 00:18:00* Test Item Value Reference Range Interpretation [...] 8.9 mg/dl 8.0-10.5 N HEPATIC FUNCTION PANEL N7875-89-58 00:18:00* Test Item Value Reference Range Interpretation [...] ALKP) 113 Units/L 50.0-136.0 N HCG SERUM CGOT8996-69-83 00:18:00* Test Item Value Reference Range Interpretation Comme nts HCG SERUM QUAL (test code = HCGQL) NEGATIVE NEGATIVE RHXMYCV7087-86-81 00:18:00* Test Item Value Reference Range Interpretation Comme nts ALCOHOL (test code = ALC) 0.00 gm/dL 0.00-0.00 N ETHYL ALCOHOL [place] SHARRI - INTERPRETATION: 0.050 GM/DL - NOT INTOXICATED 0.100 GM/DL - INTOXICATED 0.350-0.450 GM/DL - SEVERELY INTOXICATED 0.550 GM/DL- FATAL INTOXICATION Coronavirus 2018 nCoV Pnxpyhq4817-94-85 00:09:00* Test Item Value Reference Range Interpretation Comme nts Coronavirus 2019 nCoV Bedside (test code = CDPRY29PRLMB) Negative NEGATIVE Negative results should be treated as presumptive and ifinconsistent with clinical signs and symptoms, or necessaryfor patient management, should be tested with an alternativemolecular assay. Negative results do not preclude VLZD-QyL-1qhcxuwcnm and should not be used as the sole basis forpatient management decisions. Negative results should beconsidered in the context of a patient's recent exposures,history, presence of clinical signs and symptoms consistentwith COVID-19. CBC W/AUTO FTUD6078-77-44 23:58:00* Test Item Value Reference Range Interpretation Comme [facility] WHITE BLOOD CELL (test code = WBC) [...] X10 3uL 0.00-0.01 N COMP. METABOLIC PANEL (92676)2022-09-07 02:12:41* Test Item Value Reference Range Interpretation Comme nts NA (test code = 8542280237) 133 mmol/L 135-145 L K (test code = 8144688373) 4.4 mmol/L 3.5-5.0 CL (test code = 4876682445) 102 mmol/L 98-108 CO2 TOTAL (test code = 4457920898) 25 mmol/L 23-31 AGAP (test code = 4389690258) 6 2-16 BUN (test code = 3473510711) 22 mg/dL 7-23 GLUCOSE (test code = 2201656675) 97 mg/dL 70-110 CREATININE (test code = 5476111680) 0.40 mg/dL 0.50-1.04 L TOTAL BILI (test code = 1752614963) 0.3 mg/dL 0.1-1.1 CALCIUM (test code = 3364089235) 8.9 mg/dL 8.6-10.6 T PROTEIN (test code = 7693486914) 7.7 g/dL 6.3-8.2 ALBUMIN (test code = 9785239660) 4.0 g/dL 3.5-5.0 ALK PHOS (test code = 7343948619) 104 U/L 34-122 ALTv (test code = 1742-6) 15 U/L 5-35 AST(SGOT) (test code = 6620955592) 22 U/L 13-40 eGFR (test code = 0415636869) 170.4 mL/min/1.73m2 HANNAH (test code = HANNAH) [...] imaging tests). Lab Interpretation (test code = 06133-1) Abnormal [facility] WITH VDGD8244-37-22 02:01:20* Test Item Value Reference Range Interpretation Comme nts WBC (test code = 6690-2) 6.17 See_Comment [Automated [place] [employer]] The system which generated this result transmitted reference range: 4.30 - 11.10 10*3/?L. The reference range was not used to interpret this result as normal/abnormal. RBC (test code = 789-8) 3.73 See_Comment L [Automated [employer] [place] [employer]] The system which generated this result [...] 32.9 g/dL 31.6-35.1 RDW-SD (test code = 04002-4) 48.1 fL 39.0-49.9 RDW-CV (test code = 788-0) 14.7 % 12.0-15.5 PLT (test code = 777-3) 272 See_Comment [Automated [place] [employer]] The system which generated this result transmitted reference range: 166 - 358 10*3/?L. The reference range was not used to interpret this result as normal/abnormal. MPV (test code = 30056-4) 9.6 fL 9.5-12.9 NRBC/100 WBC (test code = 8927199717) 0.0 See_Comment [Automated [employer] ssage] The system which generated this result transmitted reference range: 0.0 - 10.0 /100 WBCs. The reference range was not used to interpret this result as normal/abnormal. NRBC x10^3 (test code = 3806818214) See_Comment [Automated [place] [employer]] The system which generated this result transmitted reference range: 10*3/?L. The reference range was not used to interpret this result as normal/abnormal. GRAN MAT (NEUT) % (test code = 770-8) 42.2 % IMM GRAN % (test code = 9804502344) 0.20 % LYMPH % (test code = 736-9) 38.2 % MONO % (test code = 5905-5) 12.6 % EOS % (test code = 713-8) 5.8 % BASO % (test code = 706-2) 1.0 % GRAN MAT x10^3(ANC) (test code = 3242337770) 2.60 10*3/uL 1.88-7.09 IMM GRAN x10^3 (test code = 0170143693) 0.00-0.06 LYMPH x10^3 (test code = 731-0) 2.36 10*3/uL 1.32-3.29 MONO x10^3 (test code = 742-7) 0.78 10*3/uL 0.33-0.92 EOS x10^3 (test code = 711-2) 0.36 10*3/uL 0.03-0.39 BASO x10^3 (test code = 704-7) 0.06 10*3/uL 0.01-0.07 Lab Interpretation (test code = 43604-4) [facility]normal [facility] WO EAMYNPRG0892-08-20 22:34:12 Impression: 1. ?No acute intracranial process. [...] he patient. Please correlate with history and physicalexamination.[facility]XR CERVICAL SPINE 2 JU2525-75-31 22:29:40No acute osseous abnormality. Preliminary Report Dictated by Resident: Chi Cervantes MD., have reviewed this study and agree with theabove report.EXAM: XR CERVICAL SPINE 2 VW HISTORY: neck pain COMPARISON: 07/13/2019 FINDINGS: The vertebral bodies are normal in height and in normal alignment. Theintervertebral disc spaces are unremarkable. The prevertebral soft tissuesare within normal limits. [facility], Radiant Results [facility] User - 07/22/2019 4:30 PM CSTEXAM: XR CERVICAL SPINE 2VWHISTORY: neck pain COMPARISON: 07/13/2019FINDINGS:The vertebral bodies are normal in height and innormal alignment. Theintervertebral disc spaces are unremarkable. The prevertebral soft tissuesare within normal limits.IMPRESSIONNo acute osseous abnormality.Preliminary Report Dictated by Resident:Chi Richter MD., have reviewed this study and agree with theabove report.[facility]aleCBC WITH NJHPBETQITXX4856-82-70 21:46:00* Test Item Value Reference Range Interpretation [...] 32.2 g/dL 31.6-35.1 RDW-SD (test code = 90760-0) 45.1 fL 39-49.9 RDW-CV (test code = 788-0) 14.6 % 12-15.5 PLT (test code = 777-3) See_Comment L [Automated messa ge] The system which generated this result transmitted reference range: 166 - 358 10*3/?L. The reference range was not used to interpret this result as normal/abnormal. MPV (test code = 86853-6) 9.0 fL 9.5-12.9 L NRBC/100 WBC (test code = 4737512731) See_Comment [Automated [employer] ssage] The system which generated this result transmitted reference range: 0.0 - 10.0 /100 WBCs. The reference range was not used to interpret this result as normal/abnormal. NRBC x10^3 (test code = 3809028757) <0.01 See_Comment [Automated messa ge] The system which generated this result transmitted reference range: 10*3/?L. The reference range was not used to interpret this result as normal/abnormal. GRAN MAT (NEUT) % (test code = 770-8) 51.3 % IMM GRAN % (test code = 5924294113) 0.40 % LYMPH % (test code = 736-9) 24.4 % MONO % (test code = 5905-5) 23.1 % EOS % (test code = 713-8) 0.4 % BASO % (test code = 706-2) 0.4 % GRAN MAT x10^3(ANC) (test code = 6994713134) 2.48 10*3/uL 1.88-7.09 IMM GRAN x10^3 (test code = 8532100365) <0.03 0-0.06 LYMPH x10^3 (test code = 731-0) 1.18 10*3/uL 1.32-3.29 L MONO x10^3 (test code = 742-7) 1.12 10*3/uL 0.33-0.92 H EOS x10^3 (test code = 711-2) <0.03 0.03-0.39 L BASO x10^3 (test code = 704-7) <0.03 0.01-0.07 Lab Interpretation (test code = 42112-3) Abnormal [facility] CERVICAL SPINE 2 OE2765-86-77 03:28:03No acute osseous abnormality. Preliminary Report Dictated [...] this study and agree withthe above report. [facility]aleValproic Acid Blzuz5440-23-10 08:03:22* Test Item Value Reference Range Interpretation Comme nts Valproic Acid Level (test co de = Valproic Acid Level) 57.6 ug/mL(g) 50.0-100.0 Hemoglobin B0q3439-20-70 09:36:00* Test Item Value Reference Range Interpretation Comme nts Hemoglobin A1c (test code = Hemoglobin A1c) 5.0 % 4.8-5.9 Non Diabetic 4.8-5.9%Diabetic <7.0% CT Shoulder w/o Contrast Tckf6330-85-52 16:49:13Patient: BHUMIKA JONES Date/Time01/09/2019 16:14 CDTReason for ExamInjuryReportCT Shoulder w/o Contrast LeftCLINICAL INFORMATION: InjuryCOMPARISON: Left shoulder series dated January 07, 2019TECHNIQUE: Helical CT imaging of the left shoulder was performed without intravenousor intra-articular contrast. Coronal and sagittal reformats were provided. One or more of the following dose reduction techniques were used: Automated exposure control, adjustment of the mA and/or kVaccording to patient size, and/or utilization of iterative reconstruction technique.FINDINGS:No acute fracture or malalignment is identified. The glenohumeral, acromioclavicular, and coracoclavicularjoint spaces remain well aligned. Calcifications are seen [...] Adam FSigned (Electronic Signature): 01/09/2019 4:49 pmRPR Hoxgivrzsfv5421-90-50 21:33:20* Test Item Value Reference Range Interpretation [...] 04-23-2020 N XR Shoulder Complete 2+ Views Kcmu2972-92-65 15:41:25Patient: BHUMIKA JONES Date/Time01/07/2019 15:25 CDTReason for [...] CSigned (Electronic Signature): 01/07/2019 3:41 pmThyroid Stimulating Cztebvv7069-54-48 03:07:04* Test Item Value Reference Range Interpretation Comme nts TSH (test code = TSH) 9.650 mIU/mL 0.270-4.200 H Lipid Lmpfq2427-61-65 03:07:03* Test Item Value Reference Range Interpretation Comme nts Cholesterol Total (test code = Cholesterol Total) 199 mg/dL 0-200 RISK OF HEART DISEASEPublished by [place] Heart Association Analyte Optimal Borderline Increased RiskCHOL [...] is LDL/HDL Ratio=LDL Calc/HDL Chol HCG Qualitative Nmatb1950-81-80 02:33:13* Test Item Value Reference Range Interpretation Comme nts HCG, Serum Qual (test code = HCG, Serum Qual) Negative Lot # (test code = Lot #) [id number] N Expiration Dt (test code = Expiration Dt) 2020-04-23 N Neg Control (test code = Neg Control) Negative Pos Control (test code = Pos Control) Positive Internal QC (test code = Int ernal QC) Acceptable Drugs of Abuse Urine 48004-26-04 18:58:11* Test Item Value Reference Range Interpretation [...] = Cannabinoid Screen Ur) Negative Negative Alcohol Qffhm5942-75-56 18:47:34* Test Item Value Reference Range Interpretation Comme nts Ethanol Level (test code = Ethanol Level) <0.00 g/dL 0.00-0.01 Intoxicated 0.08 0 g/dL or more Ethanol Inst (test code = Ethanol Inst) <0 N Comprehensive Metabolic Bspyg7358-58-96 18:47:33* Test Item Value Reference Range Interpretation [...] A/G Ratio) 1.0 ratio N Comprehensive Metabolic Dlnri7628-90-05 18:47:33* Test Item Value Reference Range Interpretation [...] is not provided, and the patient is -Malian, multiply by 1.212. If sex is not [...] the National Kidney Foundation, http://nkdep.nih.gov Comprehensive Metabolic Uleya0968-69-09 18:47:33* Test Item Value Reference Range Interpretation [...] is not provided, and the patient is -Malian, multiply by 1.212. If sex is not [...] is not provided, and the patient is -Malian, multiply by 1.212. If sex is not [...] Kidney Foundation, http://nkdep.nih.gov Complete Blood Count with Wquqwopytxud7581-57-29 18:15:23* Test Item Value Reference Range Interpretation [...] code = IPF) 0 % N Automated Yxzaxxcvplha4440-04-30 18:15:23* Test Item Value Reference Range Interpretation Comme nts Neutro Auto (test code = Sunny tro Auto) 42.1 % 36.0-70.0 Lymph Auto (test code = Lymph Auto) 40.0 % 12.0-44.0 Evans Auto (test code = Evans Auto) 12.2 % 0.0-11.0 H Eos, Auto (test code = Eos, Auto) 4.9 % 0.0-7.0 Basophil Auto (test code = B asophil Auto) 0.6 % 0.0-2.0 Neutro Absolute (test code = Neutro Absolute) 2.2 x10 1.6-7.4 Lymph Absolute (test code = Lymph Absolute) 2.06 x10 .50-4.60 Evans Absolute (test code = M richa Absolute) .63 x10 .00-1.20 Eos Absolute (test code = Eo s Absolute) 0.25 x10 0.00-0.74 Baso Absolute (test code = B aso Absolute) 0.03 x10 0.00-0.21 IG Imwuz1856-71-94 18:15:23* Test Item Value Reference Range Interpretation Comme nts IG (test code = IG) 0.2 % 0.0-5.0 IG Abs (test code = IG Abs) 0 x10 N Notes Date/Time Note Provider Source 2022-10-11 12:29:00 [id number] CIcNqAPHmF6eF+wcE8jWZlVTwlrkT NcxOGnQrtyVDJU3H1QAN80YZBJm9586-15-14A56:29:00 [facility])Hospitalist Discharge SummaryREPORT#:[id number] REPORT STATUS: SignedDATE:10/11/22 TIME: 1229 PATIENT: BHUMIKA JONES UNIT #: [id number]#: [id number] [address] [birth year] AGE: 47 SEX: F ATTEND: Marly Mendenhall MDADM AUTHOR: Marly Mendenhall MD * ALL edits [...] patient this morning with the help of heavy duty mechanic and she said that he lives with [...] capillary refill, normal range of motion, no edemaNeuro/FIBERGLASS CONTAINER WINDING OPERATOR: altered mental status, alert Discharge Instructions PCPDischarge to: Home/Self CareAdditional Discharge Routines: PCP Follow-UpDiet: Resume Home Diet/FeedsActivity: As Tolerated Follow-up AppointmentsPCP follow-up: PCP: No Primary or Family Physician PCP follow up timeframe: In 6 days at 1230 RPT #:[id number] OF REPORTDSDischarge hiwcnlx2961-08-76I14:29:00B.KZRL88183319-2914JLRx ailable for patient wkkeZSVNLCRMDCWCKI4647-59-08M07:30:16 [facility] 2022-09-18 17:27:00 [id number] FfCmPKkIC9ZSKTEsVASEvRUrhVbv6 TDgj7PdCUV+Zs2CpSGwwfmSu1bJ9959-25-95G45:27:00 [facility]Electroencephalogram-EEGREPORT#:[id number] REPORT STATUS: SignedDATE:09/18/22 TIME: 172 PATIENT: BHUMIKA JONES UNIT #: [id number]#: [id number] [address] [birth year] AGE: 47 SEX: F ATTEND: Marly eMndenhall [facility] AUTHOR: Nelia Parker MD * ALL edits [...] 09/18 0900 AC 09/18 (ASPIRIN) PO 10/18 900 0823 Divalproex Sodium 1,000 MG DAILY 09/18 09 CAN (DEPAKOTE ER "INTERIANO" PO 10/18 900 (NF)) Levetiracetam 750 MG Q12HR 09/18 09 [...] open eyes (commands were obtained using a licensed social worker) with opening the eyes the patient would [...] as outpatient except with the patientmentioned. at 7816 RPT #:[id number] OF REPORTDIDiagnostic hwkndde6913-99-52F95:27:00B.YYMT58487858-7718XSSl ailable for patient fsydZSILZSOEAYXWMO9583-10-18X20:37:11 [facility] 2022-09-18 14:24:00 YN21480448855steVQIf QUPGzCKI82WR9jkb2Mioi3xL3WvwC Jh6sl4+Ge7aGcAXvGCiIXY2MLry2786-73-50E97:24:00 [facility] Consultation NoteREPORT#:[id number] REPORT STATUS: SignedDATE:09/18/22 TIME: 1423 PATIENT: BHUMIKA JONES UNIT #: [id number]#: [id number] ROOM/BED: [address]DOB: [birth year] AGE: 47 SEX: F ATTEND: Marly Mendenhall [facility] AUTHOR: Nelia Parker MD * ALL edits or amendments must be made on the electronic/computer document * See AddendumHistory of Present Illness HPIRequesting clinician: see consult orderReason for consult:"AMS"Chief complaint:wanting to go home for her familyHPI:47-year-old female Bulgarian speaking only who was brought into the [...] refilled and the [facility]. Reportedly per the patient she did not like the penitentiary and does not like the food there [...] or seizures prior to herbeing in the penitentiary. Per the patient she get upset that [...] to her family. Only [facility] patient who was brought in here [...] available to confirm the history and the penitentiary location is unknown to contact someone who [...] MG 09/18 09/18 09/17 09/17 0553 0553 1855 1518Chemistry Hemoglobin A1c (4.5 - 5.6 % IS-A1C) [...] - 8.0 pH UNITS) 6.5 Ur Specific Staples (1.001 - 1.035 SG) 1.013 Urine Protein [...] 1902 IMPRESSION: Unremarkable CT examination of the brain [...] from my end currently is needed. at 1501 Addendum 1: 09/18/22 1651 by Nelia Parker MD waiting on family member to confirm or give other parts of the history that might be helpful for her condition and whether had prior seizures in the past ornot. at 1652 RPT #:[id number] OF REPORTFOQkcajqkknwbz6916-45-12A25:24:00B.PDOC2 4524892-3291OWQfgcthcao for patient gzntWOXLPCITZQGJSK7496-27-38U94:10:17 [facility] 11:44:00 [id number] NvIS8wZapIThUIeIPy8F77uEqVpRh DtNGZkz5e/bLIgBssv6QXLlGIZd5667-28-13O53:44:00 [facility] Marcel[facility])Hospitalist Progress NoteREPORT#:[id number] REPORT STATUS: SignedDATE:09/18/22 TIME: 1144 PATIENT: BHUMIKA JONES UNIT #: [id number]#: [id number] [address] [birth year] AGE: 47 SEX: F ATTEND: Marly Mendenhall AUTHOR: Marly Mendenhall MD * ALL edits or amendments must be made on the electronic/computer document * SubjectiveChief complaint:Altered mental statusHPI:This is a 47-year-old female with past medical history of schizophrenia seizure disorder she was brought into the ER because of altered mental status she had decreased responsiveness from her the patient this morning with the help of heavy duty mechanic and she said that he lives with [...] capillary refill, normal range of motion, no edemaNeuro/FIBERGLASS CONTAINER WINDING OPERATOR: altered mental status, alert Diagnosis, Assessment Plan [...] afternoon if remains stable at 1147 RPT #:[id number] OF REPORTPRProgress hjjv9708-15-67I59:44:00B.HQEC42778237-1441OKTqbrg able for patient ptppIGAHPLDNVPNGJI2945-39-36Z43:47:26 [facility] 2022-09-18 01:06:00 [id number] 1ZjSbTuohtqj9xAT6f4GdSP1QAOpx rncT7tLU1WaFt5ZZ+hdT5biY/nV5189-66-16I36:06:00 [facility] ([facility])Hospitalist History PhysicalREPORT#:[id number] REPORT STATUS: SignedDATE:09/18/22 TIME: 0106 PATIENT: BHUMIKA JONES UNIT #: [id number]#: [id number] [address] [birth year] AGE: 47 SEX: F ATTEND: Marshall Orellana [facility] AUTHOR: Nelia Moffett MD * ALL edits [...] - 8.0 pH UNITS) 6.5 Ur Specific Staples (1.001 - 1.035 SG) 1.013 Urine Protein [...] Impression By: Leonardo - Nati Hunt M.D. 09/18 0700 09/17 2300 09/17 [...] awakeCardiovascular: regular rate rhythmRespiratory: decreased breath soundsAbdomen: softNeuro/FIBERGLASS CONTAINER WINDING OPERATOR: altered mental status, alert Diagnosis, Assessment PlanFree Text A P:HyponatremiaDo a work-upContinue Ringer lactate 50 cc/h monitor electrolytes Metabolic encephalopathyNeuro watchTreat underlying condition SchizophreniaContinue home medication once confirmed Seizure disorderContinue home medicationSeizure precaution DVT prophylaxisLovenoxAdvanced directive discussedMedication reviewed and reconciledBefore midnightI will sign off at 6 AM today further management by incoming MD thereafter at 0110 RPT #:[id number] OF REPORTHPHistory and physical xpxodrblqwt0534-26-69S90:06:00B.GPRM74351731-7608 AVAvailable for patient iyxsDUTADTRQVKTRAS5046-73-33U27:10:56 [facility] 2022-09-17 14:34:00 [id number] HWz0/Kz9+j7rAGhlAUKOMmMvMnOSQ WGlYXkS342BrNHIYJX7Qy02V9dl4017-04-68W82:34:00 [facility] CenterEM[facility]ENCY PROVIDER REPORTREPORT#:[id number] REPORT STATUS: SignedDATE:09/17/22 TIME: 1433 PATIENT: BHUMIKA JONES UNIT #: [id number]#: [id number] [address]: 47 SEX: F PCP PHYS: No Primary or Family PhysicianSERVICE AUTHOR: Valentina Samayoa MD * ALL edits or amendments must be made on the electronic/computer document * HPI-General Illness Free Text HPI NotesFree Text HPI Ekqpo49-xzzz-yeb female presents after possible seizure episode at [facility] assessment patient is not fully oriented, and cannot provide history of theevents of today when asked multiple times. Additional history limited as the patient is tearful and not fully oriented. I spoke to the patient's sister Lewis Chiang, phone #[phone] by phone, who reports the patient has been missing from home for 8 days. Reports when the patient is medically cleared they can come get the patient. Patient [facility] PMH: Seizures, schizophrenia. GeneralInitial Greet Date/Time 09/17/22 [...] #30 TABS Prov: 09/13/22 DC: 09/14/22 [address] (GINA CALLES) 1,000 MG PO DAILY DIVALPROEX DR (GINA CALLES) 1,000 MG PO DAILY #60 TABS Prov: 09/13/22 DC: 09/14/22 1459 sports physiotherapist correction Reported MedicationsDIVALPROEX ER (DEPAKOTE ER) 1,000 [...] - 8.0 pH UNITS) 6.5 Ur Specific Staples (1.001 - 1.035 SG) 1.013 Urine Protein [...] medication refill, drowsy, admitted, ultimately discharged back [facility]]-My EKG interpretation: I directly visualized and interpreted [...] Accepted Time 1633 )( Accepted Date 09/17/22 at 1114RPT #:[id number] OF REPORTEDEmergency department ycoytl0125-95-74O25:34:00B.YQEU42015022-7372LTSds ilable for patient hhplMQMCHKSUIBLNSF3111-44-47Z27:14:25 [facility] 00:19:00 [id number] wAzF6c0gepd+/9FMdISqWV/sxJXR5 TZwaMBV+SjBBKra+/tQZs9rP1GW4858-70-85S55:19:00 [facility] ([facility])EMERGENCY PROVIDER REPORTREPORT#:[id number] REPORT STATUS: SignedDATE:09/17/22 TIME: 0019 PATIENT: BHUMIKA JONES UNIT #: [id number]#: [id number] ROOM/BED:AGE: 47 SEX: F PCP PHYS: No Primary or Family PhysicianSERVICE AUTHOR: Asim Jack MD * ALL edits or amendments must be made on the electronic/computer document * HPI-General Illness GeneralInitial Greet Date/Time 09/16/222254 PresentationChief Complaint Anxiety, Not feeling well Free Text HPI NotesFree Text HPI NotesPatient brought in by [facility] increasing anxiety and concern for possible seizure activity. She was recently admitted here at [facility] and worked up for possible [...] #30 TABS Prov: 09/13/22 DC: 09/14/22 [address] (GINA CALLES) 1,000 MG PO DAILY DIVALPROEX DR (GINA CALLES) 1,000 MG PO DAILY #60 TABS Prov: 09/13/22 DC: 09/14/22 1459 sports physiotherapist correction Reported MedicationsDIVALPROEX ER (DEPAKOTE ER) 1,000 [...] B/P 136/82 09/16 2256 B/P Mean 100 09/17 2255 O2 Delivery Room air 09/17 2255 Temp 37.1 09/17 2255 Pulse 75 09/16 2256 Resp 16 09/17 2255 Last Documented: Result Date Time Pulse Ox 99 09/17 0016 B/P 142/84 09/17 0016 B/P Mean 103 09/17 0016 O2 Delivery Room air 09/17 0016 Temp 36.9 09/17 0016 Pulse 67 09/17 0016 Resp 16 09/17 0016 Review of Vital Signs Reviewed Free Text [...] Tests 09/16/222333:[Embedded Image Not Available]Laboratory Tests: 09/16 0834 Chemistry Sodium (133 - 144 mmol/L) 128.0 [...] % (Auto) (14.1 - 45.4 %) 29.6 Evans % (Auto) (2.5 - 11.7 %) 10.8 Eos % (Auto) (0.0 - 6.2 %) 2.9 Baso % (Auto) (0.0 - 2.1 %) 0.7 Gran # (2.0 - 13.7 k/mm3) 3.12 Lymph # (Auto) (0.6 - 3.8 K/mm3) 1.65 Evans # (Auto) (0.11 - 0.59 K/mm3) 0.60 [...] abnormality. Impression By: NadiyaMKW1 - Jess Iglesias, PAULINAADIOLOGY - XR CHEST 1 V 09/16 2305 Report Impression - Status: SIGNED Entered: 09/16/2022 2337 IMPRESSION:No acute cardiopulmonary disease.Impression By: NadiyaJH12 - Flo Jansen MD Lab Imaging StatementLaboratory radiographic studies reviewed and considered in the medical decision-making. ECG #1 InterpretationText/Dict [id number] EKG shows normal sinus rhythm and rate of 64. There is no acute ST elevation to suggest ischemia. Normal axis and intervals without significant hypertrophy or ectopy. Nonspecific T wave changes noted with low voltage. I personally reviewed and interpreted the EKG Re-Evaluation MDM Free Text MDM NotesFree Text MDM NotesPatient presents from local penitentiary with concern for possible seizure activity. I [...] to 3 days Re-Evaluation/Progress #1Time of Re-Eval 0136Re-Eval Status Unchanged ED CourseMedication(s) OrderedMedication(s) Ordered:Central Nervous System Agents Sig/Ksenia Start time Last Medication Dose Route Stop Time Status Admin Midazolam HCl 1 MG X1ED STA 09/16 2304 DC 09/16 IV 09/16 2305 2345 Patient Discharge Departure Vital Signs/ConditionVital SignsFirst Documented: [...] ED Seizure, Recurrent (Adult)Additional InstructionsPlease follow-up with [facility], and neurology. Return if any confusion, headache, stiff neck, fever, vomiting, or any other new concerns. Please take all your medications as instructedReferralsProvider Group: Louann Canales Resident Program Follow-Up: 2-3 Days Provider Referral: Nelia Parker MD Follow-Up: 2-3 Days Address: [address] [place] [address] [address] [place] [address] Resource Referral: [facility] Follow-Up: 2-3 Days Address: [address] [facility] [place] [address] at 0140RPT #:[id number] OF REPORTEDEmergency department rythka4175-50-22J53:19:00B.TNHZ75333035-5490ORDlx ilable for patient waijGLMDKYOZGEPFHW3873-09-14A15:41:10 [facility] 2022-09-15 12:06:00 [id number] DtzO5WW4vjvt3bWQx5kdNunh3p+Qi 6R63asPYhvHrHirj6OiV4u7I5148922-58-29I23:06:00 [facility])Electroencephalogram-EEGREPORT#:[id number] REPORT STATUS: SignedDATE:09/15/22 TIME: 1206 PATIENT: BHUMIKA JONES UNIT #: [id number]#: [id number] ROOM/BED: [address]: [birth year] AGE: 47 SEX: F ATTEND: Vladimir Forbes [facility] AUTHOR: Vickie Lewis MD * ALL edits [...] or electrographic seizures recorded. at 1209 RPT #:[id number] OF REPORTDIDiagnostic aooiwgb9158-18-68M39:06:00B.XBAB21249788-4790AOKt ailable for patient fzwxESEWZFYPTVVKXL3825-78-76L72:09:33 [facility] 2022-09-15 12:00:00 [id number] Q77GHdvIBrJZFUgjHQxi/SeeLoMjm WyKu5bKgJ5StmQb3tMV6Hxk/oP30386-02-44Z55:00:00 [facility] CenterHospitalist Discharge SummaryREPORT#:[id number] REPORT STATUS: SignedDATE:09/15/22 TIME: 1200 PATIENT: BHUMIKA JONES UNIT #: [id number]#: [id number] ROOM/BED: [address]OB: [birth year] AGE: 47 SEX: F ATTEND: Vladimir Forbes [facility] AUTHOR: Vladimir Forbes MD * ALL edits [...] evaluated for possible seizure episode. 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 Patient denies to have any seizure episodes at home she just ran out of her medications and came to the hospital. Patient otherwise remains hemodynamically stable. However she is too drowsy to be discharged safely back home. I discussed the case with the patient.She wants her medications to be refilled and that she wants to go back [facility].I discussed with her about potential seizure episodes in the future use of medications compliance with the medications and further prescriptions. She states that she would management to the penitentiary. I have requested case management to evaluate [...] initial diagnosis and related differentials with the patient/specialist wound care including RN. All concerns and questions are answered to the best of my abilities based on theavailable data.I have initiated the plan of care based on preliminary diagnosis,requested appopriate consultations with labs/imagings. Patient/specialist wound care verbalizes understanding of the plan of care. [...] timeframe: In 1-2 weeks at 1202 RPT #:[id number] OF REPORTDSDischarge qhmbycq0290-22-10L33:00:00B.YHKZ57476658-0990SARk ailable for patient jxbzJZVSYMRNZZURMD8393-82-07X29:03:09 [facility] 2022-09-14 16:56:00 [id number] 4QskK4OOM0+pt8c4T81GzIY6U5/2M JeAY9V4d0pasb+wbDrWQI03T/wW8378-88-15E53:56:00 [facility] CenterNeurology Consultation NoteREPORT#:[id number] REPORT STATUS: SignedDATE:09/14/22 TIME: 1655 PATIENT: HBUMIKA JONES UNIT #: [id number]#: [id number] ROOM/BED: [address]OB: [birth year] AGE: 47 SEX: F ATTEND: Jim Jaimes [facility] AUTHOR: Vickie Lewis MD * ALL edits [...] evaluated for possible seizure episode. 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 Patient denies to have [...] (SODIUM CHLORIDE 0.9% 1000 ML) 1,000 ML .C99Z29I IV Trazodone HCl (DESYREL) 50 MG BEDTIME PRN PRN PO Sodium Chloride (SODIUM CHLORIDE 0.9% 1000 ML) 1,000 ML .M68U20R IV Carbamazepine (TEGretol) 400 MG BID PO Divalproex Sodium (DEPAKOTE DR) 1,000 MG BID PO (DC) Acetaminophen (TYLENOL) 650 MG Q6H PRN PRN PO Ondansetron HCl (ZOFRAN) 4 MG Q4H PRN PRN IV Ceftriaxone Sodium (ROCEPHIN) 1 GM Q24H IV (CAN) Lactated Ringer's (LACTATED RINGERS) 1,000 ML .V49W94S IV Ceftriaxone Sodium (ROCEPHIN) 1 GM X1ED [...] to patient poor cooperation ResultsFindings/Data:Laboratory Tests 09/14 0315 Chemistry Sodium (133 - [...] (0.88 - 1.13 INR Unit) 0.95 PTT ([place]) (24 - 37.7 SECONDS) 34.6 Laboratory Tests [...] % (Auto) (14.1 - 45.4 %) 33.6 Evans % (Auto) (2.5 - 11.7 %) 13.4 H Eos % (Auto) (0.0 - 6.2 %) 7.4 H Baso % (Auto) (0.0 - 2.1 %) 0.9 Gran # (2.0 - 13.7 k/mm3) 2.61 Lymph # (Auto) (0.6 - 3.8 K/mm3) 1.96 Evans # (Auto) (0.11 - 0.59 K/mm3) 0.78 [...] - 8.0 pH UNITS) 6.0 Ur Specific Staples (1.001 - 1.035 SG) 1.032 Urine Protein [...] acute cardiopulmonary process.Impression By: NadiyaMKM4 - Igor Almonte [facility] SCAN - CT HEAD/BRAIN W/O CONT 09/14 [...] deferred to primary team. at 1707 RPT #:[id number] OF REPORTWMUnfgnrqxmjuj6350-07-73F35:56:00B.PDOC2 [id number] for patient kthqSRGXOWGTJTRGOK8614-17-47N48:07:40 [facility] 2022-09-14 14:55:00 [id number]/JIADP4 x3P4NOiC81wD5NIOgmrlTC0msb5X1 IOMzEXDvOZQ9ugXV2ODNYHXSvU23831-08-99N78:55:00 [facility] CenterHospitalist History PhysicalREPORT#:[id number] REPORT STATUS: SignedDATE:09/14/22 TIME: 1455 PATIENT: BHUMIKA JONES UNIT #: [id number]#: [id number] ROOM/BED: [address]OB: [birth year] AGE: 47 SEX: F ATTEND: Jim Jaimes [facility] AUTHOR: Vladimir Forbes MD * ALL edits [...] evaluated for possible seizure episode. 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 Patient denies to have [...] % (Auto) (14.1 - 45.4 %) 33.6 Evans % (Auto) (2.5 - 11.7 %) 13.4 H Eos % (Auto) (0.0 - 6.2 %) 7.4 H Baso % (Auto) (0.0 - 2.1 %) 0.9 Gran # (2.0 - 13.7 k/mm3) 2.61 Lymph # (Auto) (0.6 - 3.8 K/mm3) 1.96 Evans # (Auto) (0.11 - 0.59 K/mm3) 0.78 [...] - 8.0 pH UNITS) 6.0 Ur Specific Staples (1.001 - 1.035 SG) 1.032 Urine Protein [...] acute cardiopulmonary process.Impression By: NadiyaMKM4 - Igor Almonte [facility] SCAN - CT HEAD/BRAIN W/O CONT 09/14 [...] evaluated for possible seizure episode. 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 Patient denies to have [...] initial diagnosis and related differentials with the patient/specialist wound care including RN. All concerns and questions are answered to the best of my abilities based on theavailable data.I have initiated the plan of care based on preliminary diagnosis,requested appopriate consultations with labs/imagings. Patient/specialist wound care verbalizes understanding of the plan of care. at [address] [facility] #:[id number] OF REPORTHPHistory and physical iixwzmkpcfg2631-99-50Q69:55:00B.FZYE85556849-4128 AVAvailable for patient abpdHOSEOEHYSGOZYU6658-45-82M95:01:57 [facility] 2022-09-14 04:21:00 [id number] sLADgVHTHLtbfy3SdwChl/CRltByW fpgLvUuH2qGRbKbKSAZjS/ENbf28999-22-19E98:21:00 [facility] ([facility])EMERGENCY PROVIDER REPORTREPORT#:[id number] REPORT STATUS: SignedDATE:09/14/22 TIME: 420 PATIENT: BHUMIKA JONES UNIT #: [id number]#: [id number] [address] 47 SEX: F PCP PHYS: No Primary or Family PhysicianSERVICE AUTHOR: Suleman Carvalho * ALL edits or amendments must be made on the electronic/computer document * Suleman Carvalho 09/14/22 042:HPI-General Illness Free Text HPI NotesFree Text HPI [...] Complaint __ (needs help)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 Past Medical History - AdultStated Complaint LEG PAINAllergiesCoded Allergies:No Known Allergies (09/13/22) Home MedicationsActive ScriptsrisperiDONE (RisperDAL) 3 MG PO BEDTIME risperiDONE (RisperDAL) 3 MG PO BEDTIME #30 TABS Prov: 09/13/22DIVALPROEX (GINA CALLES) 1,000 MG PO DAILY DIVALPROEX [...] % (Auto) (14.1 - 45.4 %) 33.6 Evans % (Auto) (2.5 - 11.7 %) 13.4 H Eos % (Auto) (0.0 - 6.2 %) 7.4 H Baso % (Auto) (0.0 - 2.1 %) 0.9 Gran # (2.0 - 13.7 k/mm3) 2.61 Lymph # (Auto) (0.6 - 3.8 K/mm3) 1.96 Evans # (Auto) (0.11 - 0.59 K/mm3) 0.78 [...] - 8.0 pH UNITS) 6.0 Ur Specific Staples (1.001 - 1.035 SG) 1.032 Urine Protein [...] Impressions:RADIOLOGY - XR CHEST 2 V 09/14 153 Report Impression - Status: SIGNED Entered: 09/14/2022208 IMPRESSION:No radiographic evidence of acute cardiopulmonary process.Impression By: NadiyaMKM4 - Igor Almonte MD Re-Evaluation MDM Free [...] 0407 DC 09/14 PO 09/14 0408 0452 Divalproex Sodium 500 MG X1ED STA 09/14 0407 DC 09/14 PO 09/14 0408 0452 Risperidone 3 MG X1ED STA 09/14 0407 DC 09/14 PO 09/14 0408 0453 Lorazepam 1 MG X1ED STA 09/14 0311 DC 09/14 PO 09/14 0312 0452 Patient Discharge Departure Vital Signs/ConditionVital SignsFirst [...] )( Admission Accepts Yes )( Accepted Time 429 )( Accepted Date 09/14/22 Call Information will [...] is the patient's second visit here at [facility] in the past 24 hours. Shecontinues to [...] agree with the plan of care. at 6607 at 0540RPT #:[id number] OF REPORTEDEmergency department czxqgb8660-71-34O20:21:00B.IGNJ67808089-4105AJEai ilable for patient jdqwAYIYYUYJTFXGFP8090-40-04G61:49:55 [facility] 2022-09-13 20:34:00 [id number] N01rtgAhQOouooe1AQSg1zeO7axLp AxBOSGSUqrnjelMEB9bUxC50zrd8736-69-53Z09:34:00 [facility] CenterEMERGENCY PROVIDER REPORTREPORT#:[id number] REPORT STATUS: SignedDATE:09/13/22 TIME: 2033 PATIENT: BHUMIKA JONES UNIT #: [id number]#: [id number] [facility]OM[facility]BED: [facility]AGE: 47 SEX: F PCP PHYS: No Primary or Family PhysicianSERVICE AUTHOR: Stephanie Bosch * ALL edits or amendments must be made on the electronic/computer document * Provider in Triage - Adult Provider in TriageInitial Greet Date/Time 09/13/222017 Sarita DeleonI have greeted and performed a focused rapid [...] (RisperDAL) 3 MG PO DAILY at 1707RPT #:[id number] OF REPORTEDEmergency department snlvio7752-32-47B69:34:00B.XVWL54366522-9425JARbq ilable for patient fwqlAYZGLBGXGLZASJ3876-47-01F03:08:12 [facility] 2022-09-13 09:58:00 [id number] VswEjlvTfgI3XWCsjveTDVQxYtdg9 vADjZnMx8CqDEfWbkvaEv0nM2mt4382-55-01R76:58:00 [facility] CenterEMERGENCY PROVIDER REPORTREPORT#:[id number] REPORT STATUS: SignedDATE:09/13/22 TIME: 0958 PATIENT: BHUMIKA JONES UNIT #: [id number]#: [id number] ROOM/BED:AGE: 47 SEX: F PCP PHYS: No Primary or Family PhysicianSERVICE AUTHOR: Brad Woodall DO * ALL edits or amendments must be made on the electronic/computer document * HPI-General Illness Free Text HPI NotesFree Text HPI Vssnc74-ewke-bhp female past medical history epilepsy out of [...] anything prior to arrival. GeneralInitial Greet Date/Time 09/13/22 0934 PresentationChief Complaint Chest painHx Obtained From Patient Review of Systems ROS StatementsAll systems rev neg except as marked. Review of SystemsConstitutionalDenies: Chills, Fatigue, Fever. Past Medical History - AdultStated Complaint CHEST PAINSmoking status for patients 13 years old or older: Unknown,if ever smoked Physical Exam Vital SignsVital SignsFirst Documented: Result Date Time Pulse Ox 97 09/14 935 B/P 136/80 09/14 935 B/P Mean 98 09/14 935 O2 Delivery Room air 09/14 935 Temp 97.9 09/14 935 Pulse 88 09/14 935 Resp 14 09/14 935 Last Documented: Result Date Time Pulse Ox 97 09/14 935 B/P 136/80 09/14 935 B/P Mean 98 [...] - 8.0 pH UNITS) 6.0 Ur Specific Staples (1.001 - 1.035 SG) 1.024 Urine Protein [...] % (Auto) (14.1 - 45.4 %) 34.0 Evans % (Auto) (2.5 - 11.7 %) 10.1 Eos % (Auto) (0.0 - 6.2 %) 2.7 Baso % (Auto) (0.0 - 2.1 %) 0.7 Gran # (2.0 - 13.7 k/mm3) 3.04 Lymph # (Auto) (0.6 - 3.8 K/mm3) 1.98 Evans # (Auto) (0.11 - 0.59 K/mm3) 0.59 Eos # (Auto) (0.0 - 0.4 K/mm3) 0.16 Baso # (Auto) (0.0 - 0.1 K/mm3) 0.04 Immature Gran % (0.0 - 2.0 %) 0.3 Nucleated RBC % (0.0 - 1.0 /100WBC%) 0.0 Nucleated RBCs # (0.0 - 0.05 K/mm3) 0.00 Point of Care TestingPulse Oximetry Pulse Ox % 98 On: Room air Interpretation Interpreted by ri Time 0959 ECG #1 InterpretationECG Documented in [...] Delivery Room air 09/14 935 Temp 97.9 09/13 0836 Pulse 88 09/13 0836 Resp 14 09/13 0836 Last Documented: Result Date Time Pulse Ox 97 09/13 0936 B/P 136/80 09/13 0936 B/P Mean 98 09/13 0936 O2 Delivery Room air 09/14 935 Temp 97.9 09/14 935 Pulse 88 09/13 0936 Resp 14 09/13 0836 All vital signs [...] or a call to 911. at 1327RPT #:[id number] OF REPORTB[facility] department tolahc2057-02-80L32:58:00B.ZROB32557924-8877MZLdk ilable for patient achaYQCDISRISVCGVM3235-05-30E29:28:04 [facility]
--- NOTE | 2023-07-18 00:56 | ER ---
Nurse's Notes [facility] Name: Sidra Hodges Age: 48 yrs Sex: Female : 1975 Arrival Date: 07/17/2023 Time: 23:15 Bed 7 Private MD: Diagnosis: Laceration without foreign body of other part of head;Unspecified injury of head, initial encounter Presentation: 07/17 23:19 Chief complaint: EMS states: tone out for slip and fall at home with forehead km8 laceration; no LOC per family. Coronavirus screen: Client denies travel out of the [place] in the last 14 days. Ebola Screen: No symptoms or risks identified at this time. Initial Sepsis Screen: Does the patient meet any 2 criteria? No. Patient's initial sepsis screen is negative. Does the patient have a suspected source of infection? No. Patient's initial sepsis screen is negative. Risk Assessment: Do you want to hurt yourself or someone else? Patient reports no desire to harm self or others. Onset of symptoms was July 17, 2023 at 22:00. 23:19 Method Of Arrival: EMS km8 23:19 Acuity: CARMITA 3 km8 Triage Assessment: 23:19 General: Appears in no apparent distress. Behavior is calm, cooperative, restless. km8 Pain: Complains of pain in forehead. EENT: No signs and/or symptoms were reported regarding the EENT system. Neuro: Level of Consciousness is awake, alert, obeys commands. Cardiovascular: Denies chest pain, shortness of breath, Capillary refill < 3 seconds Patient's skin is warm and dry. Respiratory: Airway is patent Respiratory effort is even, unlabored, Respiratory pattern is regular, symmetrical. GI: No signs and/or symptoms were reported involving the gastrointestinal system. : No signs and/or symptoms were reported regarding the genitourinary system. Derm: Skin is intact, is healthy with good turgor, Skin is dry, Skin is pink, warm \T\ dry. normal, Skin temperature is warm Wound noted forehead Wound is laceration. Musculoskeletal: Range of motion: intact in all extremities. Historical: - Allergies: 23:34 CARBAMAZEPINE DERIVATIVES; km8 23:34 Depakote; km8 23:34 Tegretol; km8 - PMHx: 23:34 ADD/ADHD; Anxiety; Bipolar disorder; Chronic pain; hemorrhoids; Schizophrenia; Seizures;km8 - Immunization history:: Adult Immunizations unknown. - Social history:: Smoking status: unknown. Screenin:34 [facility] ED Fall Risk Assessment (Adult) History of falling in the last 3 months, km8 including since admission Yes- single mechanical fall (1 pt) Confusion or Disorientation Yes (5 pts) Intoxicated or Sedated No (0 pts) Impaired Gait No (0 pts) Mobility Assist Device Used No (0 pt) Altered Elimination No (0 pt) Score/Fall Risk Level 3 or more points = High Risk Oriented to surroundings, Maintained a safe environment, Educated pt \T\ family on fall prevention, incl call for assistance when getting out of bed, Assessed \T\ reinforced patient's understanding of fall precautions, Provided non-skid footwear, Hourly rounding (assess needs \T\ fall precautionary measures) done, Implemented a Fall Risk Plan of Care, Remained w/in arm's length of patient and in sight while toileting, Remained with patient while ambulating. Abuse screen: Denies threats or abuse. Denies injuries from another. Nutritional screening: No deficits noted. Tuberculosis screening: No symptoms or risk factors identified. Assessment: 23:34 General: see triage assessment. 8 07/18 00:36 Reassessment: Patient appears in no apparent distress at this time. Patient and/or [facility] family updated on plan of care and expected duration. Pain level reassessed. Patient states symptoms have improved. General: Appears in no apparent distress. comfortable, Behavior is calm, quiet. Neuro: Level of Consciousness is awake, alert, obeys commands. Cardiovascular: Capillary refill < 3 seconds Patient's skin is warm and dry. Respiratory: Airway is patent Respiratory effort is even, unlabored, Respiratory pattern is regular, symmetrical. 01:02 Reassessment: Patient appears in no apparent distress at this time. No changes from [facility] previously documented assessment. Patient and/or family updated on plan of care and expected duration. Pain level reassessed. Vital Signs: 07/17 23:19 BP 145 / 106; Pulse 66; Resp 16; Temp 98(O); Pulse Ox 99% on R/A; 8 07/18 00:00 BP 148 / 100; Pulse 60; Pulse Ox 100% on R/A; km8 01:02 BP 152 / 83; Pulse 56; Pulse Ox 100% on R/A; km8 [place] Coma Score: 07/17 23:56 Eye Response: spontaneous(4). Motor Response: obeys commands(6). Verbal Response: kb oriented(5). Total: 15. ED Course: 23:19 Patient arrived in ED. kb 23:19 Cristina Sewell FNP-C is [facility]. kb 23:19 Sebastian Silva MD is Attending Physician. kb 23:19 Arm band placed on right wrist. km8 23:27 Triage completed. km8 23:34 Patient has correct armband on for positive identification. Bed in low position. Call km8 light in reach. Side rails up X2. Pulse ox on. NIBP on. 23:34 Patient maintains SpO2 saturation greater than 95% on room air. km8 23:56 Assist provider with laceration repair on forehead using sutures. Set up tray. km8 Performed by Cristina TORRES Patient tolerated well. 07/18 00:33 CT Head Brain wo Cont In Process Unspecified. EDMS 01:35 Provided Education on: d/c teaching, wound care. km8 01:35 Patient did not have IV access during this emergency room visit. km8 Administered Medications: 07/17 23:55 Drug: Lidocaine Infiltration (1 %) 1 vials 5 ml Infiltration once; to bedside {Note: km8 given by Cristina Sewell NP.} Volume: 5 ml; Route: Infiltration; 07/18 00:37 Follow up: Response: No adverse reaction km8 Medication: 07/17 23:56 VIS not applicable for this client. km8 Outcome: 07/18 00:56 Discharge ordered by . kb 01:35 Discharged to home ambulatory, km8 01:35 Condition: good 01:35 Discharge instructions given to patient, Instructed on discharge instructions, follow up and referral plans. wound care, 01:36 Patient left the ED. km8 Signatures: Dispatcher [employer] EDMS Cristina Sewell FNP-C FNP-Ckb Marx, Katie, RN RN km8
--- NOTE | 2023-07-18 00:56 | EDPHYS ---
Physician Documentation [facility] Name: Sidra Hodges Age: 48 yrs Sex: Female : 1975 Arrival Date: 07/17/2023 Time: 23:15 Bed 7 Private MD: ED Physician Sebastian Silva HPI: 07/17 23:54 This 48 yrs old Female presents to ER via EMS with complaints of fall, kb laceration to head. 23:54 Patient is a 48-year-old female who presents after a fall sustaining a laceration to kb her forehead. EMS reports patient fell in the hallway of her home. States she was awake and alert when they arrived but unknown LOC. Historical: - Allergies: 23:34 CARBAMAZEPINE DERIVATIVES; km 23:34 Depakote; 8 23:34 Tegretol; 8 - PMHx: 23:34 ADD/ADHD; Anxiety; Bipolar disorder; Chronic pain; hemorrhoids; Schizophrenia; Seizures;km8 - Immunization history:: Adult Immunizations unknown. - Social history:: Smoking status: unknown. ROS: 23:54 Constitutional: Negative for fever, chills, and weight loss, kb 23:54 Neuro: Positive for headache, 23:54 All other systems are negative, Exam: 23:54 Constitutional: This is a well developed, well nourished patient who is awake, alert, kb and in no acute distress. ENT: Moist Mucous membranes Cardiovascular: Regular rate Respiratory: Respirations even and unlabored. No increased work of breathing. Talking in full sentences MS/ Extremity: Pulses equal, no cyanosis. Neurovascular intact. Full, normal range of motion. 23:54 Skin: injury, laceration(s), the wound is approximately 3 cm(s), of the forehead, that can be described as clean, no foreign body, linear, with mild bleeding, 07/18 00:09 Neuro: Exam negative for acute changes, kb Vital Signs: 07/17 23:19 BP 145 / 106; Pulse 66; Resp 16; Temp 98(O); Pulse Ox 99% on R/A; km8 07/18 00:00 BP 148 / 100; Pulse 60; Pulse Ox 100% on R/A; km8 01:02 BP 152 / 83; Pulse 56; Pulse Ox 100% on R/A; km8 [place] Coma Score: 07/17 23:56 Eye Response: spontaneous(4). Motor Response: obeys commands(6). Verbal Response: kb oriented(5). Total: 15. Laceration: 07/18 00:08 Wound Repair of 3cm ( 1.2in ) subcutaneous laceration to forehead. Linear shaped.. kb Distal neuro/vascular/tendon intact. Anesthesia: Wound infiltrated with 2 mls of 1% lidocaine. Wound prep: Extensive cleansing with hibiclenz by me, Wound irrigation with saline by me. Skin closed with 5 5-0 Fast-absorbing gut using simple sutures and sterile technique. Patient tolerated well. MDM: 07/17 23:19 Patient medically screened. kb 23:56 Differential diagnosis: Contusion of Hematoma on Laceration of Intracranial bleed-. kb Data reviewed: vital signs, nurses notes. Historians other than the Patient: EMS: [employer]. 07/18 00:55 Counseling: I had a detailed discussion with the patient and/or guardian regarding the kb historical points, exam findings, and any diagnostic results supporting the discharge/admit diagnosis, radiology results, the need for outpatient follow up, a family practitioner, to return to the emergency department if symptoms worsen or persist or if there are any questions or concerns that arise at home. 07/17 23:19 Order name: CT Head Brain wo Cont kb 07/17 23:19 Order name: Dressing - Wound; Complete Time: 01:02 kb 07/17 23:19 Order name: Gloves, Sterile; Complete Time: 23:31 kb 07/17 23:19 Order name: Setup Suture Tray; Complete Time: 23:31 kb Administered Medications: 07/17 23:55 Drug: Lidocaine Infiltration (1 %) 1 vials 5 ml Infiltration once; to bedside {Note: km8 given by Cristina Sewell NP.} Volume: 5 ml; Route: Infiltration; 07/18 00:37 Follow up: Response: No adverse reaction km8 Disposition: 04:00 Co-signature as Attending Physician, Sebastian Silva MD I agree with the assessment sp4 and plan of care. I reviewed the patient's care provided by the Advanced Practice Provider and agree with the diagnosis and treatment plan. Disposition Summary: 07/18/23 00:56 Discharge Ordered Notes: Location: Home kb Condition: Stable kb Diagnosis - Laceration without foreign body of other part of head kb - Unspecified injury of head, initial encounter kb Followup: kb - With: Emergency Department - When: As needed - Reason: Worsening of condition Followup: kb - With: Private Physician - When: 2 - 3 days - Reason: Recheck today's complaints, Continuance of care, Re-evaluation by your physician Discharge Instructions: - Discharge Summary Sheet kb - Laceration Care, Adult, [id number] kb - Head Injury, Adult, [id number] kb Forms: - Medication Reconciliation Form kb - Thank You Letter kb - Antibiotic Education kb - Prescription Opioid Use kb - Patient Portal Instructions kb - Leadership Thank You Letter kb Signatures: Dispatcher [employer] EDMS Cristina Sewell, INSURANCE RISK SURVEYOR-C INSURANCE RISK SURVEYOR-Sebastian Ames MD MD sp4 Sagrario Atkins RN RN km8 Corrections: (The following items were deleted from the chart) 00:09 07/17 23:54 Constitutional: This is a well developed, well nourished patient who is kb awake, alert, and in no acute distress. ENT: Moist Mucous membranes Cardiovascular: Regular rate Respiratory: Respirations even and unlabored. No increased work of breathing. Talking in full sentences MS/ Extremity: Pulses equal, no cyanosis. Neurovascular intact. Full, normal range of motion. Neuro: Awake and alert, GCS 15, oriented to person, place, time, and situation. Moves all extremities. kb
[2023-07-18 05:17] VITALS: BP 152/83; TEMP 98; O2SAT 100
--- NOTE | 2023-07-18 13:27 | RAD REPORT ---
EXAM DESCRIPTION: CT - Head Brain Wo Cont - 07/18/2023 4:59 am CLINICAL HISTORY: 48 years Female headache COMPARISON: CT head without contrast dated 11/01/2019 TECHNIQUE: Contiguous axial images of the brain were obtained without the administration of intraven ous contrast.This exam was performed according to our departmental dose-optimization program which in cludes use of Automated Exposure Control, adjustment of the mA and/or kV according to patient size an d/or use of iterative reconstruction technique. DLP: 866 mGy*cm FINDINGS: Brain: No acute intracranial hemorrhage. No extra-axial collection. No mass effect or daksha iation. Unchanged prominence of the sulci and cisterns. Confluent periventricular and subcortical w kristen matter hypodensity is noted. Ventricles: Allowing for underlying cerebral volume loss, ventricular size appears within normal limi ts. Globes and orbits: No acute abnormality. Bones: No acute osseous finding Paranasal sinuses: Paranasal sinuses are clear. Mastoid air cells: Well pneumatized. Soft tissues: Right frontal scalp swelling IMPRESSION: No acute intracranial hemorrhage, hydrocephalus or herniation. Cerebral volume loss and chronic small vessel ischemic changes. Consider MRI brain for further evalua tion. Right frontal scalp swelling Electronically signed by: Bari Merida DO 07/18/2023 12:48 AM [employer] Due to temporary technical issues with the PACS/Fluency reporting system, reports are being signed by the in house radiologist without review as a courtesy to ensure prompt reporting. The interpreting r adiologist is fully responsible for the content of the report.
== END ==
LOC: ER 23:15
PROC: 0HQ1XZZ Repair Face Skin, External Approach (ICD-10-PCS; principal; 2023-07-17)
DX: S01.81XA Laceration without foreign body of other part of head, initial encounter (principal); Z88.8 Allergy status to other drugs, medicaments and biological substances
CPT/HCPCS: 70450; J2001

== ENCOUNTER → 2023-07-29 | Emergency (ER) | payer SELFPAY ==
--- OUTSIDE RECORDS SUMMARY | 2023-07-29 17:27 | XMS REPORT | Continuity of Care Document ---
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 (TRILEPTAL) 300 mg tablet 10-21 19:58: 10 Yes Take by mouth. [facility] divalproex ER (DEPAKOTE ER) 500 mg 24 hr tablet 10-21 19:58: 10 Yes 500mg Take 500 mg by mouth every 24 (twenty-fo ur) hours. [facility] OXcarbazepi ne (TRILEPTAL) 300 mg tablet 10-21 19:58: 10 Yes Take by mouth. [facility]DE[facility]KOTE ER) 500 mg 24 hr tablet 10-21 19:58: 10 Yes 500mg Take 500 mg by mouth every 24 (twenty-fo ur) hours. [facility] OXcarbazepi ne (TRILEPTAL) 300 mg tablet 10-21 19:58: 10 Yes Take by mouth. [facility] divalproex ER (DEPAKOTE ER) 500 mg 24 hr tablet 10-21 19:58: 10 Yes 500mg Take 500 mg by mouth every 24 (twenty-fo ur) hours. [facility] OXcarbazepi ne (TRILEPTAL) 300 mg tablet 10-21 19:58: 10 Yes Take by mouth. [facility] divalproex ER (DEPAKOTE ER) 500 mg 24 hr tablet 10-21 19:58: 10 Yes 500mg Take 500 mg by mouth every 24 (twenty-fo ur) hours. [facility] OXcarbazepi ne (TRILEPTAL) 300 mg tablet 10-21 19:58: 10 Yes Take by mouth. [facility] divalproex ER (DEPAKOTE ER) 500 mg 24 hr tablet 10-21 19:58: 10 Yes 500mg Take 500 mg by mouth every 24 (twenty-fo ur) hours. [facility] OXcarbazepi ne (TRILEPTAL) 300 mg tablet 10-21 19:58: 10 Yes Take by mouth. [facility] divalproex ER (DEPAKOTE ER) 500 mg 24 hr tablet 10-21 19:58: 10 Yes 500mg Take 500 mg by mouth every 24 (twenty-fo ur) hours. [facility] OXcarbazepi ne (TRILEPTAL) 300 mg tablet 10-21 19:58: 10 Yes Take by mouth. [facility] (DEPAKOTE ER) 500 mg 24 hr tablet 10-21 19:58: 10 Yes 500mg Take 500 mg by mouth every 24 (twenty-fo ur) hours. [facility] OXcar[facility] (TRILEPTAL) 300 mg tablet 10-21 19:58: 10 Yes Take by mouth. [facility] (DEPAKOTE ER) 500 mg 24 hr tablet 10-21 19:58: 10 Yes 500mg Take 500 mg by mouth every 24 (twenty-fo ur) hours. [facility] OXcarbazepi ne (TRILEPTAL) 300 mg tablet 10-21 19:58: 10 Yes Take by mouth. [facility] divalproex ER (DEPAKOTE ER) 500 mg 24 hr tablet 10-21 19:58: 10 Yes 500mg Take 500 mg by mouth every 24 (twenty-fo ur) hours. [facility] OXcarbazepi ne (TRILEPTAL) 300 mg tablet 10-21 19:58: 10 Yes Take by mouth. [facility] divalproex ER (DEPAKOTE ER) 500 mg 24 hr tablet 10-21 19:58: 10 Yes 500mg Take 500 mg by mouth every 24 (twenty-fo ur) hours. [facility] OXcarbazepi ne (TRILEPTAL) 300 mg tablet 10-21 19:58: 10 Yes Take by mouth. [facility] divalproex ER (DEPAKOTE ER) 500 mg 24 hr tablet 10-21 19:58: 10 Yes 500mg Take 500 mg by mouth every 24 (twenty-fo ur) hours. [facility] OXcarbazepi ne (TRILEPTAL) 300 mg tablet 10-21 19:58: 10 Yes Take by mouth. [facility] divalproex ER (DEPAKOTE ER) 500 mg 24 hr tablet 10-21 19:58: 10 Yes 500mg Take 500 mg by mouth every 24 (twenty-fo ur) hours. [facility] OXcarbazepi ne (TRILEPTAL) 300 mg tablet 10-21 19:58: 10 Yes Take by mouth. [facility] naproxen (NAPROSYN) 500 mg tablet 10-21 00:00: 00 Yes 500mg Take 1 tablet by mouth 2 (two) times daily with meals. [facility] naproxen (NAPROSYN) 500 mg tablet 10-21 00:00: 00 Yes 500mg Take 1 tablet by mouth 2 (two) times daily with meals. [facility] naproxen (NAPROSYN) 500 mg tablet 10-21 00:00: 00 Yes 500mg Take 1 tablet by mouth 2 (two) times daily with meals. [facility] naproxen (NAPROSYN) 500 mg tablet 10-21 00:00: 00 Yes 500mg Take 1 tablet by mouth 2 (two) times daily with meals. [facility] naproxen (NAPROSYN) 500 mg tablet 10-21 00:00: 00 Yes 500mg Take 1 tablet by mouth 2 (two) times daily with meals. [facility] naproxen (NAPROSYN) 500 mg tablet 10-21 00:00: 00 Yes 500mg Take 1 tablet by mouth 2 (two) times daily with meals. [facility] naproxen (NAPROSYN) 500 mg tablet 10-21 00:00: 00 Yes 500mg Take 1 tablet by mouth 2 (two) times daily with meals. [facility] naproxen (NAPROSYN) 500 mg tablet 10-21 00:00: 00 Yes 500mg Take 1 tablet by mouth 2 (two) times daily with meals. [facility] naproxen (NAPROSYN) 500 mg tablet 10-21 00:00: 00 Yes 500mg Take 1 tablet by mouth 2 (two) times daily with meals. [facility] naproxen (NAPROSYN) 500 mg tablet 10-21 00:00: 00 Yes 500mg Take 1 tablet by mouth 2 (two) times daily with meals. [facility] naproxen (NAPROSYN) 500 mg tablet 10-21 00:00: 00 Yes 500mg Take 1 tablet by mouth 2 (two) times daily with meals. [facility] naproxen (NAPROSYN) 500 mg tablet 10-21 00:00: 00 Yes 500mg Take 1 tablet by mouth 2 (two) times daily with meals. [facility] naproxen (NAPROSYN) 500 mg tablet 10-21 00:00: 00 Yes 500mg Take 1 tablet by mouth 2 (two) times daily with meals. [facility] naproxen (NAPROSYN) 500 mg tablet 10-21 00:00: 00 Yes 500mg Take 1 tablet by mouth 2 (two) times daily with meals. [facility] naproxen (NAPROSYN) 500 mg tablet 10-21 00:00: 00 Yes 500mg Take 1 tablet by mouth 2 (two) times daily with meals. [facility] naproxen (NAPROSYN) 500 mg tablet 10-21 00:00: 00 Yes 500mg Take 1 tablet by mouth 2 (two) times daily with meals. [facility] naproxen (NAPROSYN) 500 mg tablet 10-21 00:00: 00 Yes 500mg Take 1 tablet by mouth 2 (two) times daily with meals. [facility] naproxen (NAPROSYN) 500 mg tablet 10-21 00:00: 00 Yes 500mg Take 1 tablet by mouth 2 (two) times daily with meals. [facility] naproxen (NAPROSYN) 500 mg tablet 10-21 00:00: 00 Yes 500mg Take 1 tablet by mouth 2 (two) times daily with meals. [facility] naproxen (NAPROSYN) 500 mg tablet 10-21 00:00: 00 Yes 500mg Take 1 tablet by mouth 2 (two) times daily with meals. [facility] ibuprofen 600 mg tablet 8-16 00:00: 00 Yes 600mg Take 1 tablet by mouth every 8 (eight) hours as needed for Pain (scale 4-6). [facility] mg tablet 02-06 00:00: 00 Yes 600mg Take 1 tablet by mouth every 8 (eight) hours as needed for Pain (scale 4-6). [facility] ibuprofen 600 mg tablet 02-06 00:00: 00 Yes 600mg Take 1 tablet by mouth every 8 (eight) hours as needed for Pain (scale 4-6). [facility] ibuprofen 600 mg tablet 02-06 00:00: 00 Yes 600mg Take 1 tablet by mouth every 8 (eight) hours as needed for Pain (scale 4-6). [facility] ibuprofen 600 mg tablet 02-06 00:00: 00 Yes 600mg Take 1 tablet by mouth every 8 (eight) hours as needed for Pain (scale 4-6). [facility] ibuprofen 600 mg tablet 02-06 00:00: 00 Yes 600mg Take 1 tablet by mouth every 8 (eight) hours as needed for Pain (scale 4-6). [facility] ibuprofen 600 mg tablet 02-06 00:00: 00 Yes 600mg Take 1 tablet by mouth every 8 (eight) hours as needed for Pain (scale 4-6). [facility] ibuprofen 600 mg tablet 02-06 00:00: 00 Yes 600mg Take 1 tablet by mouth every 8 (eight) hours as needed for Pain (scale 4-6). [facility] ibuprofen 600 mg tablet 02-06 00:00: 00 05-05 00:00 :00 No 600mg Take 1 tablet by mouth every 8 (eight) hours as needed for Pain (scale 4-6). [facility] hydrocortis one 2.5 % rectal cream 12-31 00:00: 00 Yes Insert into rectum 2 (two) times daily. [facility] hydrocortis one 2.5 % rectal cream 12-31 00:00: 00 Yes Insert into rectum 2 (two) times daily. [facility] hydrocortis one 2.5 % rectal cream [id number] 00:00: 00 Yes Insert into rectum 2 (two) times daily. [facility] of [facility] hydrocortis one 2.5 % rectal cream 0 710 00:00: 00 Yes Insert into rectum 2 (two) times daily. [facility] of [facility] hydrocortis one 2.5 % rectal cream 0 10 00:00: 00 Yes Insert into rectum 2 (two) times daily. [facility] hydrocortis one 2.5 % rectal cream 0 710 00:00: 00 Yes Insert into rectum 2 (two) times daily. [facility]y [facility] hydrocortis one 2.5 % rectal cream 0 10 00:00: 00 Yes Insert into rectum 2 (two) times daily. [facility] hydrocortis one 2.5 % rectal cream 2016-0 10 00:00: 00 Yes Insert into rectum 2 (two) times daily. [facility] hydrocortis one 2.5 % rectal cream 2016-0 10 00:00: 00 Yes Insert into rectum 2 (two) times daily. [facility] hydrocortis one 2.5 % rectal cream 2016-0 10 00:00: 00 Yes Insert into rectum 2 (two) times daily. [facility] hydrocortis one 2.5 % rectal cream 0 12-31 00:00: 00 Yes Insert into rectum 2 (two) times daily. [facility] hydrocortis one 2.5 % rectal cream [id number] 10 00:00: 00 Yes Insert into rectum 2 (two) times daily. [facility] hydrocortis one 2.5 % rectal cream 2016-0 710 00:00: 00 Yes Insert into rectum 2 (two) times daily. [facility] hydrocortis one 2.5 % rectal cream 2016-0 710 00:00: 00 Yes Insert into rectum 2 (two) times daily. [facility] hydrocortis one 2.5 % rectal cream [id number] 710 00:00: 00 Yes Insert into rectum 2 (two) times daily. [facility] hydrocortis one 2.5 % rectal cream 12-31 00:00: 00 Yes Insert into rectum 2 (two) times daily. [facility] hydrocortis one 2.5 % rectal cream 12-31 00:00: 00 Yes Insert into rectum 2 (two) times daily. [facility] hydrocortis one 2.5 % rectal cream 12-31 00:00: 00 Yes Insert into rectum 2 (two) times daily. [facility] hydrocortis one 2.5 % rectal cream 12-31 00:00: 00 Yes Insert into rectum 2 (two) times daily. [facility] hydrocortis one 2.5 % rectal cream 12-31 00:00: 00 Yes Insert into rectum 2 (two) times daily. [facility] hydrocortis one (ANUSOL-HC) 25 mg suppository 07-23 00:00: 00 Yes 25mg Insert 1 Suppositor y into rectum 2 (two) times daily. [facility] hydrocortis one (ANUSOL-HC) 25 mg suppository 07-23 00:00: 00 Yes 25mg Insert 1 Suppositor y into rectum 2 (two) times daily. [facility] hydrocortis one (ANUSOL-HC) 25 mg suppository 07-23 00:00: 00 Yes 25mg Insert 1 Suppositor y into rectum 2 (two) times daily. [facility] hydrocortis one (ANUSOL-HC) 25 mg suppository 07-23 00:00: 00 Yes 25mg Insert 1 Suppositor y into rectum 2 (two) times daily. [facility] hydrocortis one (ANUSOL-HC) 25 mg suppository 07-23 00:00: 00 Yes 25mg Insert 1 Suppositor y into rectum 2 (two) times daily. [facility] hydrocortis one (ANUSOL-HC) 25 mg suppository 07-23 00:00: 00 Yes 25mg Insert 1 Suppositor y into rectum 2 (two) times daily. [facility] hydrocortis one (ANUSOL-HC) 25 mg suppository 07-23 00:00: 00 Yes 25mg Insert 1 Suppositor y into rectum 2 (two) times daily. [facility] hydrocortis one (ANUSOL-HC) 25 mg suppository 07-23 00:00: 00 Yes 25mg Insert 1 Suppositor y into rectum 2 (two) times daily. [facility] hydrocortis one (ANUSOL-HC) 25 mg suppository 07-23 00:00: 00 Yes 25mg Insert 1 Suppositor y into rectum 2 (two) times daily. [facility] hydrocortis one (ANUSOL-HC) 25 mg suppository 07-23 00:00: 00 Yes 25mg Insert 1 Suppositor y into rectum 2 (two) times daily. [facility] hydrocortis one (ANUSOL-HC) 25 mg suppository 07-23 00:00: 00 Yes 25mg Insert 1 Suppositor y into rectum 2 (two) times daily. [facility] hydrocortis one (ANUSOL-HC) 25 mg suppository 07-23 00:00: 00 Yes 25mg Insert 1 Suppositor y into rectum 2 (two) times daily. [facility] hydrocortis one (ANUSOL-HC) 25 mg suppository 07-23 00:00: 00 Yes 25mg Insert 1 Suppositor y into rectum 2 (two) times daily. [facility] hydrocortis one (ANUSOL-HC) 25 mg suppository 07-23 00:00: 00 Yes 25mg Insert 1 Suppositor y into rectum 2 (two) times daily. [facility] hydrocortis one (ANUSOL-HC) 25 mg suppository 07-23 00:00: 00 Yes 25mg Insert 1 Suppositor y into rectum 2 (two) times daily. [facility] hydrocortis one (ANUSOL-HC) 25 mg suppository 07-23 00:00: 00 Yes 25mg Insert 1 Suppositor y into rectum 2 (two) times daily. [facility] hydrocortis one (ANUSOL-HC) 25 mg suppository 07-23 00:00: 00 Yes 25mg Insert 1 Suppositor y into rectum 2 (two) times daily. [facility] hydrocortis one (ANUSOL-HC) 25 mg suppository 07-23 00:00: 00 Yes 25mg Insert 1 Suppositor y into rectum 2 (two) times daily. [facility] hydrocortis one (ANUSOL-HC) 25 mg suppository 07-23 00:00: 00 Yes 25mg Insert 1 Suppositor y into rectum 2 (two) times daily. [facility] hydrocortis one (ANUSOL-HC) 25 mg suppository 07-23 00:00: 00 Yes 25mg Insert 1 Suppositor y into rectum 2 (two) times daily. [facility] Vital Signs Vital Name Observation Time Observation Value Comments S ource Height 2022-11-04 14:04:00 149.86 CM Weight 2022-11-04 14:04:00 73.02 KG Systolic blood pressure 2022-09-24 17:32:00 130 mm[Hg] [facility] Diastolic blood pressure 2022-09-24 17:32:00 85 mm[Hg] [facility] Heart rate 2022-09-24 17:32:00 64 /min [facility] Body temperature 2022-09-24 17:32:[address] [facility] Respiratory rate 2022-09-24 17:32:00 18 /min [facility] Body weight 2022-09-24 17:32:00 74.844 kg [facility] BMI 2022-09-24 17:32:00 33.33 kg/m2 [facility] Oxygen saturation in Arterial blood by Pulse oximetry 2022-09-24 17:32:00 99 /min [facility] Systolic blood pressure 2022-09-10 23:55:00 111 mm[Hg] [facility] Diastolic blood pressure 2022-09-10 23:55:00 84 mm[Hg] [facility] Heart rate 2022-09-10 23:55:00 105 /min [facility] Body temperature 2022-09-10 23:55:[address] [facility] Respiratory rate 2022-09-10 23:55:00 19 /min [facility] Systolic blood pressure 2022-09-10 01:44:00 126 mm[Hg] [facility] Diastolic blood pressure 2022-09-10 01:44:00 81 mm[Hg] [facility] Heart rate 2022-09-10 01:44:00 78 /min [facility] Body temperature 2022-09-10 01:44:[address] [facility] Respiratory rate 2022-09-10 01:44:00 16 /min [facility] Body weight 2022-09-10 01:44:00 79.379 kg [facility] BMI 2022-09-10 01:44:00 35.35 kg/m2 [facility] Oxygen saturation in Arterial blood by Pulse oximetry 2022-09-10 01:44:00 100 /min [facility] Systolic blood pressure 2022-09-07 05:37:00 119 mm[Hg] [facility] Diastolic blood pressure 2022-09-07 05:37:00 67 mm[Hg] [facility] Heart rate 2022-09-07 05:37:00 79 /min [facility] Respiratory rate 2022-09-07 05:37:00 16 /min [facility] Oxygen saturation in Arterial blood by Pulse oximetry 2022-09-07 05:37:00 98 /min [facility] Body temperature 2022-09-06 23:05:[address] [facility] Body weight 2022-09-06 23:05:00 79.379 kg [facility] BMI 2022-09-06 23:05:00 35.35 kg/m2 [facility] Systolic blood pressure 2021-10-02 20:55:00 111 mm[Hg] [facility] Diastolic blood pressure 2021-10-02 20:55:00 70 mm[Hg] [facility] Heart rate 2021-10-02 20:55:00 79 /min [facility] Body temperature 2021-10-02 20:55:[address] [facility] Respiratory rate 2021-10-02 20:55:00 18 /min [facility] Body height 2021-10-02 20:55:00 149.9 cm [facility] Body weight 2021-10-02 20:55:00 79.379 kg [facility] BMI 2021-10-02 20:55:00 35.35 kg/m2 [facility] Oxygen saturation in Arterial blood by Pulse oximetry 2021-10-02 20:55:00 100 /min [facility] Systolic blood pressure 2021-05-05 19:20:00 102 mm[Hg] [facility] Diastolic blood pressure 2021-05-05 19:20:00 48 mm[Hg] [facility] Heart rate 2021-05-05 19:20:00 68 /min [facility] Body temperature 2021-05-05 19:20:[address] [facility] Respiratory rate 2021-05-05 19:20:00 18 /min [facility] Body weight 2021-05-05 19:20:00 79.379 kg [facility] BMI 2021-05-05 19:20:00 35.35 kg/m2 [facility] Oxygen saturation in Arterial blood by Pulse oximetry 2021-05-05 19:20:00 99 /min [facility] Systolic blood pressure 2019-12-15 22:12:00 138 mm[Hg] [facility] Diastolic blood pressure 2019-12-15 22:12:00 100 mm[Hg] [facility] Heart rate 2019-12-15 22:12:00 77 /min [facility] Body temperature 2019-12-15 22:12:[address] [facility] Respiratory rate 2019-12-15 22:12:00 20 /min [facility] Body weight 2019-12-15 22:12:00 79[facility]379 [facility] 2019-12-15 22:12:00 35.35 [facility]2 [facility] in Arterial blood by Pulse oximetry 2019-12-15 22:12:00 100 /min [facility] Systolic blood pressure 2019-12-15 22:12:00 138 mm[Hg] [facility] Diastolic blood pressure 2019-12-15 22:12:00 100 mm[Hg] [facility] Heart rate 2019-12-15 22:12:00 77 /min [facility] Body temperature 2019-12-15 22:12:[address] [facility] Respiratory rate 2019-12-15 22:12:00 20 /min [facility] Body weight 2019-12-15 22:12:00 79.379 [facility] 2019-12-15 22:12:00 35.35 kg/m2 [facility] Oxygen saturation in Arterial blood by Pulse oximetry 2019-12-15 22:12:00 100 /min [facility] Respiratory rate 2019-10-25 23:43:00 18 /min [facility] Body weight 2019-10-25 23:43:00 83.915 kg [facility] BMI 2019-10-25 23:43:00 37.37 kg/m2 [facility] Respiratory rate 2019-10-25 23:43:00 18 /min [facility] Body weight 2019-10-25 23:43:00 83.915 kg [facility] BMI 2019-10-25 23:43:00 37.37 kg/m2 [facility] Systolic blood pressure 2019-08-13 19:25:00 123 mm[Hg] [facility] Diastolic blood pressure 2019-08-13 19:25:00 88 mm[Hg] [facility] Heart rate 2019-08-13 19:25:00 78 /min [facility] Body temperature 2019-08-13 19:25:[address] [facility] Respiratory rate 2019-08-13 19:25:00 18 /min [facility] Body height 2019-08-13 19:25:00 149.9 cm [facility] Body weight 2019-08-13 19:25:00 90.719 kg [facility] BMI 2019-08-13 19:25:00 40.40 kg/m2 [facility] Oxygen saturation in Arterial blood by Pulse oximetry 2019-08-13 19:25:00 100 /min [facility] Systolic blood pressure 2019-08-13 19:25:00 123 mm[Hg] [facility] Diastolic blood pressure 2019-08-13 19:25:00 88 mm[Hg] [facility] Heart rate 2019-08-13 19:25:00 78 /min [facility] Body temperature 2019-08-13 19:25:[address] [facility] Respiratory rate 2019-08-13 19:25:00 18 /min [facility] Body height 2019-08-13 19:25:00 149.9 cm [facility] Body weight 2019-08-13 19:25:00 90.719 kg [facility] BMI 2019-08-13 19:25:00 40.40 kg/m2 [facility] Oxygen saturation in Arterial blood by Pulse oximetry 2019-08-13 19:25:00 100 /min [facility] Systolic blood pressure 2019-07-23 00:20:15 120 mm[Hg] [facility] Diastolic blood pressure 2019-07-23 00:20:15 74 mm[Hg] [facility] Heart rate 2019-07-23 00:20:15 82 /min [facility] Respiratory rate 2019-07-23 00:20:15 19 /min [facility] Oxygen saturation in Arterial blood by Pulse oximetry 2019-07-23 00:20:15 100 /min [facility] Body temperature 2019-07-22 19:41:[address] [facility] Body weight 2019-07-22 19:39:00 90.719 kg [facility] BMI 2019-07-22 19:39:00 39.06 kg/m2 [facility] Systolic blood pressure 2019-07-23 00:20:15 120 mm[Hg] [facility] Diastolic blood pressure 2019-07-23 00:20:15 74 mm[Hg] [facility] Heart rate 2019-07-23 00:20:15 82 /min [facility] Respiratory rate 2019-07-23 00:20:15 19 /min [facility] Oxygen saturation in Arterial blood by Pulse oximetry 2019-07-23 00:20:15 100 /min [facility] Body temperature 2019-07-22 19:41:[address] [facility] Body weight 2019-07-22 19:39:00 90.719 kg [facility] BMI 2019-07-22 19:39:00 39.06 kg/m2 [facility] Systolic blood pressure 2019-07-14 03:33:00 127 mm[Hg] [facility] Diastolic blood pressure 2019-07-14 03:33:00 88 mm[Hg] [facility] Heart rate 2019-07-14 03:33:00 79 /min [facility] Respiratory rate 2019-07-14 03:33:00 16 /min [facility] Oxygen saturation in Arterial blood by Pulse oximetry 2019-07-14 03:33:00 97 /min [facility] Body weight 2019-07-14 02:16:00 90.719 kg Univ [facility] BMI 2019-07-14 02:16:00 39.06 kg/m2 [facility] Body temperature 2019-07-14 02:15:[address] [facility] Body weight 2019-07-10 20:39:00 90.719 kg [facility] BMI 2019-07-10 20:39:00 39.06 kg/m2 [facility] Systolic blood pressure 2019-01-21 23:34:00 133 mm[Hg] [facility] Diastolic blood pressure 2019-01-21 23:34:00 78 mm[Hg] [facility] Heart rate 2019-01-21 23:34:00 66 /min [facility] Body temperature 2019-01-21 23:34:[address] [facility] Respiratory rate 2019-01-21 23:34:00 18 /min [facility] Body height 2019-01-21 23:34:00 147.3 cm [facility] Body weight 2019-01-21 23:34:00 68.04 kg [facility] BMI 2019-01-21 23:34:00 31.35 kg/m2 [facility] Oxygen saturation in Arterial blood by Pulse oximetry 2019-01-21 23:34:00 100 /min [facility] Systolic blood pressure 2019-01-21 23:34:00 133 mm[Hg] [facility] Diastolic blood pressure 2019-01-21 23:34:00 78 mm[Hg] [facility] Heart rate 2019-01-21 23:34:00 66 /min [facility] Body temperature 2019-01-21 23:34:[address] [facility] Respiratory rate 2019-01-21 23:34:00 18 /min [facility] Body height 2019-01-21 23:34:00 147.3 cm [facility] Body weight 2019-01-21 23:34:00 68.04 kg [facility] BMI 2019-01-21 23:34:00 31.35 kg/m2 [facility] Oxygen saturation in Arterial blood by Pulse oximetry 2019-01-21 23:34:00 100 /min [facility] Procedures Procedure Date / Time Performed Performing Clinician Source ASSIGNMENT OF BENEFITS 2023-07-23 18:45:32 Docto r Unassigned, Marina [facility] REFERRAL- REQUEST/RESPONSE 2023-06-05 06:01:00 Doctor Unassigned, Marina [facility] REFERRAL- REQUEST/RESPONSE 2023-05-20 06:01:00 Doctor Unassigned, Marina [facility] COMP. METABOLIC PANEL ([id number]) 2022-09-07 01:38:[address] [facility] CBC WITH DIFF 2022-09-07 01:38:00 Tayo Boyd [facility] URINALYSIS 2022-09-07 01:38:00 Tayo [facility] XR ANKLE <3 VW LEFT 2022-09-07 00:56:[address] [facility] XR FOOT <3 VW LEFT 2022-09-07 00:56:[address] [facility] CONSENT/REFUSAL FOR DIAGNOSIS AND TREATMENT 2022-09-06 22:08:37 Doctor Unassigned, Marina [facility] CT CERVICAL SPINE WO CONTRAST 2021-10-02 [facility]:53[facility] 2021-10-02 21:53:[address] [facility] CT THORACIC SPINE WO CONTRAST 2021-10-02 21:53:[address] [facility] XR FOREARM 2 VW RIGHT 2021-05-05 20:03:[address] [facility] XR WRIST 3+ VW RIGHT 2021-05-05 20:03:[address] [facility] NOTICE OF PRIVACY PRACTICES 2021-05-05 19:12:00 Doctor Unassigned, Marina [facility] CONSENT/REFUSAL FOR DIAGNOSIS AND TREATMENT 2021-05-05 19:11:19 Doctor Unassigned, Marina [facility] CONSENT/REFUSAL FOR DIAGNOSIS AND TREATMENT 2019-08-13 19:17:22 Doctor Unassigned, Marina [facility] CT HEAD WO CONTRAST 2019-07-22 22:24:[address] [facility] XR CERVICAL SPINE 2 VW 2019-07-22 21:59:[address] [facility] CBC WITH DIFFERENTIAL 2019-07-22 21:34:[address] [facility] XR CERVICAL SPINE 2 VW 2019-07-14 02:43:[address] [facility] XR ELBOW <3 VW LEFT 2019-07-14 02:43:00 Henry Owen [facility] XR KNEE <3 VW RIGHT 2019-07-14 02:43:00 Henry Owen [facility] XR SHOULDER <2 VW LEFT 2019-07-14 02:43:[address] [facility] Encounters Start Date/Time End Date/Time Encounter Type Admission Type Attending Clinicians Care Facility Care Department Encounter ID Source 2022-11-13 13:10:28 Inpatient [facility] [id number] [facility] 2022-11-05 09:23:13 Inpatient [facility] [id number] [facility] 2023-07-23 14:20:00 2023-07-23 14:20:00 Outpatient K[facility] [id number] [facility] 2023-07-23 00:00:00 2023-07-23 00:00:00 Orders Only Doctor Unassigned, Marina [facility] 1..840.114 350.1.13.10 4.2.7.2.686 [id number] [facility] 2023-07-04 16:48:23 2023-07-04 16:48:[address] [facility] [id number] [place] 2023-06-18 10:35:36 2023-06-18 10:35:[address] [facility] [id number] Henry Quiles [place] 2023-06-05 00:00:00 2023-06-05 00:00:00 Orders Only Doctor Unassigned, Marina [facility] ..840.114 350.1.13.10 4.2.7.2.686 [id number] [facility] 2023-06-04 16:00:39 2023-06-04 16:00:39 Outpatient SFA [facility] [id number] Henry Contreras 2023-05-24 15:38:52 2023-05-24 15:38:52 Outpatient SFA [facility] [id number] Henry Contreras 2023-05-22 00:00:00 2023-05-22 00:00:00 Letter (Out) Neurology [facility] 1..840.114 350.1.13.10 4.2.7.2.686 [id number] [facility] 2023-05-20 00:00:00 2023-05-20 00:00:00 Orders Only Doctor Unassigned, Marina [facility] 1.2840.114 350.1.13.10 4.2.7.2.686 [id number] [facility] 2023-05-17 15:07:14 2023-05-17 15:07:[address] [facility] [id number] Henry Qu[address] [place] 2023-03-02 12:27:43 2023-03-02 12:27:43 Outpatient [facility] [id number] Henry Contreras 2023-01-09 17:11:26 2023-01-09 17:11:[address] [facility] [id number] Henry Quiles [place] 2022-11-04 14:04:00 2022-11-05 11:09:00 Emergency [facility] [id number] [facility] 2022-09-24 12:33:00 2022-09-24 12:51:00 Emergency Heri Snow [facility] 1.2840.114 350.1.13.10 4.2.7.2.686 [id number] [facility] 2022-09-22 00:00:00 2022-09-22 00:00:00 Nurse Triage Madhavi Mcginnis [facility] 1.840.114 350.1.13.10 4.2.7.2.686 [id number] [facility] 2022-09-18 10:09:00 2022-09-19 14:28:00 Inpatient EM Marly Mendenhall [facility] [id number] [facility] 2022-09-16 22:50:00 2022-09-17 01:40:00 Emergency EM Asim Jack [facility]I [id number] [facility] 2022-09-14 14:52:00 2022-09-15 14:00:00 Inpatient EM Vladimir Forbes [facility] TELE [id number] [facility] 2022-09-13 09:34:00 2022-09-13 13:00:00 Emergency EM Brad Woodall [facility]I [id number] [facility] 2022-09-10 23:39:00 2022-09-11 11:28:00 Emergency EM Russel Sewell [facility] [id number] [facility] 2022-09-10 18:57:00 2022-09-10 20:20:00 Emergency Lisa Morfin [facility] 1.840.114 350.1.13.10 4.2.7.2.686 [id number] [facility] 2022-09-10 18:57:00 2022-09-10 20:20:00 Emergency X SANDRITA EKY [facility] [id number] [facility] 2022-09-09 20:45:00 2022-09-09 22:46:00 Emergency X SANDRITA KEY [facility] [id number] [facility] 2022-09-09 20:45:00 2022-09-09 22:46:00 Emergency Sandrita Key [facility] 1.840.114 350.1.13.10 4.2.7.2.686 [id number] [facility] 2022-09-06 18:09:00 2022-09-07 00:51:00 Emergency X TAYO BOYD [facility] [id number] [facility] 2022-09-06 18:09:00 2022-09-07 00:51:00 Emergency Tayo Boyd [facility] 1.840.114 350.1.13.10 4.2.7.2.686 [id number] [facility] 2022-08-21 14:11:33 2022-08-21 14:11:33 Outpatient [facility] [id number] Henry Contreras 2022-07-17 15:03:48 2022-07-17 15:03:48 Outpatient [facility] [id number] Henry Contreras 2021-10-02 15:56:00 2021-10-02 19:00:00 Emergency X JAVED FRANK [facility] [id number] [facility] 2021-10-02 15:56:00 2021-10-02 19:00:00 Emergency Javed Frank [facility] 1.2840.114 350.1.13.10 4.2.7.2.686 [id number] [facility] 2021-05-05 13:22:00 2021-05-05 14:48:00 Emergency X DEON NUNEZ [facility] [id number] [facility] 2021-05-05 13:22:00 2021-05-05 14:48:00 Emergency Deon Nunez [facility] 1.2840.114 350.1.13.10 4.2.7.2.686 [id number] [facility] 2021-05-05 00:00:00 2021-05-05 00:00:00 Orders Only Doctor Unassigned, Marina [facility] 1.2840.114 350.1.13.10 4.2.7.2.686 [id number] [facility] 2019-12-15 17:11:56 2019-12-15 18:04:00 Emergency Kp [facility] 1.2840.114 350.1.13.10 4.2.7.2.686 [id number] 2019-12-15 17:11:56 2019-12-15 18:04:00 Emergency Kp [facility] 1.2.840.114 350.1.13.10 4.2.7.2.686 [id number] [facility] 2019-12-15 17:11:56 2019-12-15 17:11:56 Emergency X Kp GILLILAND [facility] [id number] [facility] 2019-10-25 18:31:31 2019-10-25 19:21:00 Emergency Kristin Miller [facility] 1.2.840.114 350.1.13.10 4.2.7.2.686 [id number] 2019-10-25 18:31:31 2019-10-25 19:21:00 Emergency Kristin Miller [facility] 1.2.840.114 350.1.13.10 4.2.7.2.686 [id number] [facility] 2019-10-25 18:31:31 2019-10-25 18:31:31 Emergency X KRISTIN MILLER [facility] [id number] [facility] 2019-08-13 13:30:00 2019-08-13 14:36:00 Emergency Floridalma Evans [facility] 1.2.840.114 350.1.13.10 4.2.7.2.686 [id number] 2019-08-13 13:30:00 2019-08-13 14:36:00 Emergency Floridalma Evans [facility] 1.2.840.114 350.1.13.10 4.2.7.2.686 [id number] [facility] 2019-08-13 13:30:00 2019-08-13 14:36:00 Emergency X FLORIDALMA EVANS [facility] [id number] [facility] 2019-07-22 13:42:11 2019-07-22 19:02:00 Emergency Unknown, Attending Lisa Morfin [facility] 1.2.840.114 350.1.13.10 4.2.7.2.686 [id number] 2019-07-22 13:42:11 2019-07-22 19:02:00 Emergency X LISA MORFIN [facility] [id number] [facility] 2019-07-22 13:42:11 2019-07-22 19:02:00 Emergency Unknown, Attending Lisa Morfin S [facility] 1.2.840.114 350.1.13.10 4.2.7.2.686 [id number] [facility] 2019-07-13 20:17:19 2019-07-13 21:48:00 Emergency X HENRY OWEN [facility] [id number] [facility] 2019-07-13 20:17:19 2019-07-13 21:48:00 Emergency Trena Henry [facility] 1.2.840.114 350.1.13.10 4.2.7.2.686 [id number] [facility] 2019-07-10 14:26:03 2019-07-10 16:33:00 Emergency X DEBBIE PAYTON [facility] [id number] [facility] 2019-07-10 14:26:03 2019-07-10 16:33:00 Emergency Debbie Payton [facility] 1.2.840.114 350.1.13.10 4.2.7.2.686 [id number] [facility] 2019-07-04 19:09:02 2019-07-04 22:51:00 Emergency X LISA MORFIN [facility] [id number] [facility] 2019-06-30 10:33:08 2019-06-30 13:10:00 Emergency X DEON NUNEZ [facility] [id number] [facility] 2019-05-25 11:58:19 2019-05-25 15:37:00 Emergency X DEON NUNEZ [facility] [id number] [facility] 2019-04-09 22:29:37 2019-04-09 23:28:00 Emergency X FLORIDALMA EVANS [facility] [id number] [facility] 2019-01-21 18:38:01 2019-01-21 19:59:00 Emergency Le Ramirez [facility] 1.2.840.114 350.1.13.10 4.2.7.2.686 [id number] 2019-01-21 18:38:01 2019-01-21 19:59:00 Emergency Le Ramirez [facility] 1.2.840.114 350.1.13.10 4.2.7.2.686 [id number] [facility] Results Test Description Test Time Test Comments Results Result Co mments Source COMPREHENSIVE METABOLIC [id number] 23:46:03* Test Item Value Reference Range Interpretation Comme nts GLUCOSE (test code = 2217) 97 MG/DL 70-99 BUN (test code = 2208) 7 MG/DL 6-20 CREATININE (test code = 2214) 0.61 MG/DL 0.60-1.30 eGFR (2020 CKD-EPI) (test code = 13899) 110 ML/MIN/1.73 >60 CALC BUN/CREAT (test code [...] 13 U/L 5-40 CBC W/AUTO DIFF WITH [id number] 08:48:44* Test Item Value Reference Range Interpretation [...] 0.00-0.10 ABS NUCLEATED RBCS (test code = 29629) 0.00 K/UL 0.00-0.11 UNLESS OTHER MONTOYA INDICATED, ALL TESTING PERFORMED AT [facility] [address] [place] [address] OTA: JATIN FELIPE M.D. CLIA NUMBER [id number] [place]. [id number] 01:13:06* Test Item Value Reference Range Interpretation Comme nts TRANSFERRIN (test code = 4936) 315 MG/DL 200-360 UNLESS OTHERWISE INDICATED, ALL TESTING PERFORMED AT [facility] [address] [place] [address] 88123 OTA: JATIN FELIPE M.D. CLIA NUMBER [id number] [place]. [id number] LIPID [id number] 01:12:48* Test Item Value Reference Range Interpretation [...] SPECIMENS. FOR MOREINFORMATION, SEE CLIENT ANNOUNCEMENT AT [email or web address] RISK RATIO LDL/HDL (test code = 2238) 1.34 RATIO <3.22 COMPREHENSIVE METABOLIC [id number] 01:12:48* Test Item Value Reference Range Interpretation Comme nts GLUCOSE (test code = 2217) 92 MG/DL 70-99 BUN (test code = 2208) 15 MG/DL 6-20 CREATININE (test code = 2214) 0.65 MG/DL 0.60-1.30 eGFR (2020 CKD-EPI) (test code = 93660) 108 ML/MIN/1.73 >60 CALC BUN/CREAT (test code [...] 3.5-5.2 CALC GLOBULIN (test code = 2239) 3.9 G/DL 1.9-3.7 H CALC A/G RATIO [...] IRON BINDING CAPACITY AND IRON AND % [id number] 01:12:48* Test Item Value Reference Range Interpretation Comme nts IRON, SERUM (test code = 222) 51 UG/DL 37-145 UNSATURATED IBC (test code = 93114) 356 UG/DL 112-347 H CALC TOTAL IBC (test code = 2076) 407 UG/DL 250-450 CALC % IRON SAT (test code = 2078) 13 % 20-50 L [id number] 00:59:24* Test Item Value Reference Range Interpretation Comme nts FERRITIN (test code = 207) 20 NG/ML 13-200 HEMOGLOBIN [id number] 03:08:40* Test Item Value Reference Range Interpretation Comme nts HEMOGLOBIN A1c (test code = 65593) 5.5 % 4.2-5.6 CBC W/AUTO DIFF WITH [id number] 02:29:36* Test Item Value Reference Range Interpretation [...] 0.00-0.10 ABS NUCLEATED RBCS (test code = 14853) 0.00 K/UL 0.00-0.11 DRUGS OF [id number] 05:03:00* Test Item Value Reference Range Interpretation [...] 200 ng/mL Opiates 300 ng/mL URINALYSIS WITH [id number] 04:56:00* Test Item Value Reference Range Interpretation [...] (test code = USPERM) /HPF NONE URINE [id number] 04:53:00* Test Item Value Reference Range Interpretation [...] the FDA and the [employer] (CAP) are more stringent than those required for this test. Therefore, the result should be interpreted with caution and close attention to other clinical and epidemiological data [id number] 16:00:00* Test Item Value Reference Range Interpretation Comme nts SALICYLATE (test code = 94B) <3.0 mg/dL 15.0-30.0 L LIVER [id number] 15:49:00* Test Item Value Reference Range Interpretation [...] code = 31A) <7 IU/L 10-49 L [id number] 15:48:00* Test Item Value Reference Range Interpretation [...] to interpret this result as normal/abnormal. 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 Old healed fractures of the distal tibia and fibular noted.Soft tissues: Unremarkable.IMPRESSION: No acute findings.Electronically signed by: Nikko Santiago MD 11/04/2022 3:10 PM CDT [id number] BEDSIDE [id number] 11:51:00* Test Item Value Reference Range Interpretation Comme nts GLUCOSE BEDSIDE TESTING (karen t code = GLUBED) 79 MG/DL 70-119 N GLUCOSE BEDSIDE [id number] 06:23:00* Test Item Value Reference Range Interpretation Comme nts GLUCOSE BEDSIDE TESTING (karen t code = GLUBED) 80 MG/DL 70-119 N BASIC METABOLIC [id number] 05:12:00* Test Item Value Reference Range Interpretation [...] 2.0 <2.0 indicates None DetectedPerformed At: [facility] [address] [id number] Michael Reeves MD Ph:[phone] GLUCOSE BEDSIDE [id number] 19:51:00* Test Item Value Reference Range Interpretation Comme nts GLUCOSE BEDSIDE TESTING (karen t code = GLUBED) 129 MG/DL 70-119 H OSMOLALITY [id number] 17:56:00* Test Item Value Reference Range Interpretation Comme nts OSMOLALITY SERUM (test code = OSMO) 269 mOsm/kg 275-300 L THYROID STIMULATING [id number] 17:56:00* Test Item Value Reference Range Interpretation Comme nts THYROID STIMULATING HORMONE (test code = TSH) 4.190 mc IU/ML 0.340-4.820 N GLUCOSE BEDSIDE [id number] 15:49:00* Test Item Value Reference Range Interpretation [...] code = VALP) 37.5 mcG/ML 50.0-100.0 L [id number] 14:26:00* Test Item Value Reference Range Interpretation Comme nts AMMONIA (test code = AMM) 29.0 mcMOL/L 11.0-32.0 N GLUCOSE BEDSIDE [id number] 11:51:00* Test Item Value Reference Range Interpretation Comme nts GLUCOSE BEDSIDE TESTING (karen t code = GLUBED) 88 MG/DL 70-119 N GLYCOSYLATED HEMOGLOBIN (HA1C)2022-09-18 06:53:00* Test Item Value Reference Range Interpretation Comme nts GLYCOSYLATED HEMOGLOBIN (HA1 C) (test code = GLYHGB) 5.2 % IS-A1C 4.5-5.6 N ESTIMATED AVERAGE [id number] 06:53:00* Test Item Value Reference Range Interpretation [...] to interpret this result as normal/abnormal. UR [id number] 21:28:00* Test Item Value Reference Range Interpretation Comme nts UR SODIUM RANDOM (test code = JESUSITA) 93 mmol/L 40-200 N UR POTASSIUM RANDOM (test code = KU) 54.8 mmol/L 25-125 N NO ESTABLISHED NORMAL RANGES FOR RANDOM SPECIMENS. UR CHLORIDE RANDOM (test code = CLU) 164 mmol/L 110-150 H UR OSMOLALITY [id number] 21:28:00* Test Item Value Reference Range Interpretation Comme nts UR OSMOLALITY RANDOM (test c ode = OSMOU) 475 mOsm/kg 100-1400 N CBC W/O [id number] 20:05:00* Test Item Value Reference Range Interpretation [...] = MPV) 9.5 fL 6.8-11.2 N LACTIC ATDE2215-81-86 19:35:00* Test Item Value Reference Range Interpretation Comme nts LACTIC ACID (test code = LACT) 1.0 mmol/L 0.4-2.0 N HCG SERUM [id number] 19:31:00* Test Item Value Reference Range Interpretation Comme nts HCG SERUM QUAL (test code = HCGQL) Negative SCREEN NEG - CT HEAD/BRAIN W/O [id number] 18:59:00 [facility] BH[facility]A JONES : 1975 Sex: F Patient Name: BHUMIKA JONES Unit No: [id number] EXAMS: CPT CODE: [id number] CT HEAD/BRAIN W/O CONT 15939 Location: H3 CT head, conducted on 09/17/22 at 1837 hours COMPARISON EXAMS:Head CT exam of09/17/22 at 00:06 hours TECHNIQUE: CT examination of the brain was performed without contrast on a helical scanner. Scanning conducted from skull base to vertex in the axial plane acquiring contiguous 5mm slice thickness . The examination was performed on a updated helical CT scanner utilizing low-dose radiation technique. Automatic exposure control timing was utilized to minimize radiation dose.The DLP is 730.91 mGy- cm CLINICAL HISTORY: Seizure activity FINDINGS: There is no evolving process identified or cerebral edema when compared to the prior study. Midline structures appear fairly unremarkable. No focal area of encephalomalacia. No positive mass-effect, midline shift, extra-axial fluid collections or intracranial hemorrhages seen. In particular, no subarachnoid hemorrhage is iden tified. No intra or extra-axial masses. Bone windows unremarkable. No significant sinus disease is noted. No acute territorial infarction is seen. IMPRESSION: Unremarkable CT examination of the brainwithout contrast. No significant change from the exam acquired earlier today. Electronically Sign ed by Nati Hunt M.D. on 09/17/2022 at 1859 Reported and signed by: Nati Hunt M.D. CC: Valentina Samayoa MD Dictated Date/Time: 09/17/2022 (1858) Technologist: GIL Marie(Abner)(CT) CTDI: DLP: Trnscrpt: 09/17/2022 (1858) NadiyaDAS6 [facility] NAME: JONES,C [address] PHYS: Valentina [place] [address] : 1975 AGE: 47 SEX: F LOC: JOSHUA 20 PHONE #: [phone] EXAM DATE: 09/17/2022 STATUS: ADM IN FAX #: [phone] RAD #: D/C DT PAGE 1 Signed Report Patient Name: BHUMIKA JONES Unit No: [id number] EXAMS: CPT CODE: [id number] CT HEAD/BRAIN W/O CONT 59135 (Continued) Orig Print D/T: S: 09/17/2022 (1902) DENIZ Lugo NAME: ROBERT[address] PHYS: Valentina [place] [address] : 1975 AGE: 47 SEX: F LOC: JOSHUA 20 PHONE #: [phone] EXAM DATE: 09/17/2022 STATUS: ADM IN FAX #: [phone] RAD #: D/C DT PAGE 2 Signed ReportURINALYSIS ELPQSFIN7634-88-75 16:28:00* Test Item Value Reference Range Interpretation [...] >0 /UL NONE-SQepi DRUGS OF ABUSE SCREEN [id number] 16:28:00* Test Item Value Reference Range Interpretation [...] interpret this result as normal/abnormal. TROP-I HIGH CQZPVKZSKSN3749-91-91 16:26:00* Test Item Value Reference Range Interpretation [...] and URLs may vary bymethod. BASIC METABOLIC RILJO0785-41-82 16:25:00* Test Item Value Reference Range Interpretation [...] interpret this result as normal/abnormal. HEPATIC FUNCTION LLUXG2351-21-04 16:25:00* Test Item Value Reference Range Interpretation [...] ode = CK) 92 Unit/L 26-192 N ZPFHOF7036-34-37 16:25:00* Test Item Value Reference Range Interpretation Comme nts LIPASE (test code = LIP) 57 Unit/L 114-286 L - CT HEAD/BRAIN W/O FHEQ3959-24-10 00:32:00 [facility] BH[facility] JON[facility] : 1975 Sex: F Patient Name: BHUMIKA JONES Unit No: [id number] EXAMS: CPT CODE: [id number] CT HEAD/BRAIN W/O CONT 36234 EXAM: - CT HEAD/BRAIN W/O CONT LOCATION: [...] is no evidence of an acute territorial infar ct. There is no mass effect, midline shift, [...] No CT evidence of acute intracranial abnormality. ElectronicallySigned by Jess Iglesias MD on 09/17/2022 at 0032 Reported and signed by: Jess Iglesias MD CC: Dictated Date/Time: 09/17/2022 (003) Technologist: Terry August CTDI: DLP: Trnscrpt: 09/17/2022(003) CliffordR.MKW1 [facility]: BHUM[facility]ONES [address] [place] [address] Blvd PHYS: PATCA.02 - Asim Jack [place] [address] : 1975 AGE: 47 SEX: F LOC: MARCOS PHONE #: [phone] EXAM DATE: 09/16/2022 STATUS: REG ER FAX #: [phone] RAD #: D/C DT PAGE 1 Signed Report Patient Name: BHUMIKA JONES Unit No: [id number] EXAMS: CPT CODE: [id number] CT HEAD/BRAIN W/O CONT 65821 (Continued) Orig Print D/T: S: 09/17/2022 (0035) MADELYN Parish NAME: BHUMIKA JONES [address] [place] [address] PHYS: IGNACIO.02 - Asim [place] [address] : 1975 AGE: 47 SEX: F LOC: MARCOS PHONE #: [phone] EXAM DATE: 09/16/2022 STATUS: REG ER FAX #: [phone] RAD #: D/C DT PAGE 2 Signed ReportTROP-I HIGH ZUDJSUSQPQC3247-67-39 00:13:00* Test Item Value Reference Range Interpretation [...] and URLs may vary bymethod. COMPREHENSIVE METABOLIC OWRCM2932-03-22 00:11:00* Test Item Value Reference Range Interpretation [...] interpret this result as normal/abnormal. CBC W/AUTO [id number] 23:59:00* Test Item Value Reference Range Interpretation [...] K/mm3 0.0-0.05 N - XR CHEST 1 [id number] 23:34:00 [facility] Refugio: BHUMIKA JONES : 1975 Sex: F [place]: St: PRE -- Patient Name: BHUMIKA JONES Unit No: [id number] EXAMS: CPT CODE: [id number] XR CHEST 1 V 48942 EXAMINATION: - XR CHEST 1 V CLINICAL [...] at 2334 Reported and signed by: Flo Jnasen MD CC: Dictated Date/Time: 09/16/2022 (781)Technologist: Muna Monet Transcribed Date/Time: 09/16/2022 (233) By: NadiyaJH12 Orig Print D/T: S: 09/16/2022 (0175) [facility] J[facility]ESPC[facility] [address] [place] [address] PHYS: PATCA.02 - [place]im [place], [place] [address] : 1975 AGE: 47 SEX: F LOC: B.ERS PHONE #: [phone] EXAM DATE: 09/16/2022 STATUS: PRE ER FAX #: [phone] RAD NO: DC Dt: PAGE 1 Signed ReportCARBAMAZEPINE (TEGRETOL) 2022-09-15 06:12:00* Test Item Value Reference Range Interpretation Comme nts CARBAMAZEPINE (TEGRETOL) (test code = CARB) 1.5 ug/mL 4.0-12.0 L In conjunction w ith other antiepileptic drugs Therapeutic 4.0 - 8.0 Toxicity 9.0 - 12.0 Carbamazepine alone Therapeutic 8.0 - 12.0 Detection Limit = 2.0 <2.0 indicates None DetectedPerformed At: [facility] [address] [place], [place] [id number] Michael Reeves MD Ph:[phone] VALPROIC ACID (DEPAKENE)2022-09-15 06:12:00* Test Item Value Reference Range Interpretation Comme nts VALPROIC ACID (DEPAKENE) (te st code = VALP) 80.6 mcG/ML 50.0-100.0 N COMPREHENSIVE METABOLIC [id number] 06:00:00* Test Item Value Reference Range Interpretation [...] interpret this result as normal/abnormal. CBC W/AUTO [id number] 05:37:00* Test Item Value Reference Range Interpretation [...] NRBC#) 0.00 K/mm3 0.0-0.05 N GLUCOSE BEDSIDE TPBRGCV5767-01-13 20:03:00* Test Item Value Reference Range Interpretation Comme nts GLUCOSE BEDSIDE TESTING (karen t code = GLUBED) 117 MG/DL 70-119 N DRUGS OF ABUSE SCREEN [id number] 11:42:00* Test Item Value Reference Range Interpretation [...] result as normal/abnormal. - CT HEAD/BRAIN W/O [id number] 11:37:00 [facility] BHUMIKA JONES : 1975 Sex: F Patient Name: BHUMIKA JONES Unit No: [id number] EXAMS: CPT CODE: [id number] CT HEAD/BRAIN W/O CONT 58261 EXAMINATION: - CT HEAD/BRAIN W/O CONT COMPARISON: [...] size and configuration for the age of thepatient. The posterior fossa structures are normal in appearance. The bony calvarium is intact. Orbits and globes are unremarkable. No significant paranasal sinus mucosal disease is identified. Vascular structures are grossly normal IMPRESSION: No acute intracranial abnormality at 1137 Reported and signed by: Gladis Andrew MD CC: Vladimir Forbes MD; Jim Jaimes MD Dictated Date/Time: 09/14/2022 (4899) Technologist: ASUNCION CASTELLANO CTDI: DLP: Trnscrpt: 09/14/2022 (3812) t.[email or web address].[email or web address] DENIZ Lugo NAME: BHUMIKA JONES [facility] PHYS: Vladimir Menchaca MD [address] [place] [address] : 1975 AGE: 47 SEX: F [place] [address] LOC: NEHA 10 PHONE #: [phone] EXAM DATE: 09/14/2022 STATUS: ADM IN FAX #: [phone] RAD #: D/C DT PAGE 1 Signed Report Patient Name: BHUMIKA JONES Unit No: [id number] EXAMS: CPT CODE: [id number] CT HEAD/BRAIN W/O CONT 94987 (Continued) Orig Print D/T: S: 09/14/2022 (5820) DENIZ Lugo NAME: JONES,BAI [facility] PHYS: Vladimir Menchaca MD [address] [place], [place] [address] : 1975 AGE: 47 SEX: F [place] [address] LOC: JESSICAROSE 10 PHONE #: [phone] EXAM DATE: 09/14/2022 STATUS: ADM IN FAX #: [phone] RAD #: D/C DT PAGE 2 Signed ReportPT AND [id number] 06:51:00* Test Item Value Reference Range Interpretation [...] AVOIDED DUE TO POSSIBLE HEPARINCONTAMINATION HCG SERUM APUQ4214-92-86 06:51:00* Test Item Value Reference Range Interpretation [...] CK) 268 Unit/L 26-192 H CBC W/AUTO CMMM7992-29-67 03:43:00* Test Item Value Reference Range Interpretation [...] = NRBC#) 0.00 K/mm3 0.0-0.05 N URINALYSIS ULPOYSNN1830-71-25 03:41:00* Test Item Value Reference Range Interpretation [...] RARE /LPF NONE - XR CHEST 2 [id number] 02:06:00 [facility] BHUMIKA JONES : 1975 Sex: F FAX: Suleman Carvalho [facility] [phone] [place]: Linda St: REG Patient Name: BHUMIKA JONES Unit No: [id number] EXAMS: CPT CODE: [id number] XR CHEST 2 V 09973 EXAM: - XR CHEST 2 V HISTORY: [...] D/T: S: 09/14/2022 (0209) DENIZ Lugo NAME: ROBERT[address] PHYS: HUVAD - Hu[place], [place] [address] : 1975 AGE: 47SEX: F LOC: MARCOS PHONE #: [phone] EXAM DATE: 09/14/2022 STATUS: REG ER FAX #: [phone] RAD NO: DC Dt: PAGE 1 Signed Report COMPREHENSIVE METABOLIC TSSLP8140-12-00 12:49:00* Test Item Value Reference Range Interpretation [...] used to interpret this result as normal/abnormal. XFIKBQDCV5425-16-97 12:49:00* Test Item Value Reference Range Interpretation Comme nts MAGNESIUM (test code = MAG) 1.7 MG/DL 1.6-2.6 N CBC W/AUTO WWZB1418-98-38 12:36:00* Test Item Value Reference Range Interpretation [...] RARE /LPF NONE DRUGS OF ABUSE SCREEN [id number] 00:33:00* Test Item Value Reference Range Interpretation [...] 300 ng/mL UA RFLX MICR CULT IF GEXSRJGDT7254-40-43 00:30:00* Test Item Value Reference Range Interpretation [...] culture: Suprapubic PainSpecimen Description: CLEAN CATCHBASIC METABOLIC VIMRU1990-88-85 00:18:00* Test Item Value Reference Range Interpretation [...] 8.9 mg/dl 8.0-10.5 N HEPATIC FUNCTION PANEL M2023-37-89 00:18:00* Test Item Value Reference Range Interpretation [...] ALKP) 113 Units/L 50.0-136.0 N HCG SERUM CHBT5759-98-88 00:18:00* Test Item Value Reference Range Interpretation Comme nts HCG SERUM QUAL (test code = HCGQL) NEGATIVE NEGATIVE BADCJSU3517-93-80 00:18:00* Test Item Value Reference Range Interpretation Comme nts ALCOHOL (test code = ALC) 0.00 gm/dL 0.00-0.00 N ETHYL ALCOHOL MIRELLA HARRELL - INTERPRETATION: 0.050 GM/DL - NOT INTOXICATED 0.100 GM/DL - INTOXICATED 0.350-0.450 GM/DL - SEVERELY INTOXICATED 0.550 GM/DL- FATAL INTOXICATION Coronavirus 2019 nCoV Zdvtenr1861-69-43 00:09:00* Test Item Value Reference Range Interpretation Comme nts Coronavirus 2019 nCoV Bedside (test code = [id number]) Negative NEGATIVE Negative results should be treated as presumptive and ifinconsistent with clinical signs and symptoms, or necessaryfor patient management, should be tested with an alternativemolecular assay. Negative results do not preclude ZFRB-XlF-0xssixuipm and should not be used as the sole basis forpatient management decisions. Negative results should beconsidered in the context of a patient's recent exposures,history, presence of clinical signs and symptoms consistentwith COVID-19. CBC W/AUTO OKFQ2831-90-51 23:58:00* Test Item Value Reference Range Interpretation [...] X10 3uL 0.00-0.01 N COMP. METABOLIC PANEL (39866)2022-09-07 02:12:41* Test Item Value Reference Range Interpretation Comme nts NA (test code = 5318882082) 133 mmol/L 135-145 L K (test code = 3735079040) 4.4 mmol/L 3.5-5.0 CL (test code = 9210947725) 102 mmol/L 98-108 CO2 TOTAL (test code = 3838955939) 25 mmol/L 23-31 AGAP (test code = 8344430616) 6 2-16 BUN (test code = 7934991843) 22 mg/dL 7-23 GLUCOSE (test code = 2111289671) 97 mg/dL 70-110 CREATININE (test code = 4170971605) 0.40 mg/dL 0.50-1.04 L TOTAL BILI (test code = 7952072889) 0.3 mg/dL 0.1-1.1 CALCIUM (test code = 7880654951) 8.9 mg/dL 8.6-10.6 T PROTEIN (test code = 0740052491) 7.7 g/dL 6.3-8.2 ALBUMIN (test code = 8930292753) 4.0 g/dL 3.5-5.0 ALK PHOS (test code = 4767232579) 104 U/L 34-122 ALTv (test code = 1742-6) 15 U/L 5-35 AST(SGOT) (test code = 0693123011) 22 U/L 13-40 eGFR (test code = 0297027324) 170.4 mL/min/1.73m2 HANNAH (test code = HANNAH) [...] imaging tests). Lab Interpretation (test code = 55129-7) Abnormal [facility] WITH QLNF0583-52-25 02:01:20* Test Item Value Reference Range Interpretation Comme nts WBC (test code = 6690-2) 6.17 See_Comment [Automated Studiekring] The system which generated this result transmitted reference range: 4.30 - 11.10 10*3/?L. The reference range was not used to interpret this result as normal/abnormal. RBC (test code = 789-8) 3.73 See_Comment L [Automated Studiekring] The system which generated this result transmitted [...] 32.9 g/dL 31.6-35.1 RDW-SD (test code = 35706-6) 48.1 fL 39.0-49.9 RDW-CV (test code = 788-0) 14.7 % 12.0-15.5 PLT (test code = 777-3) 272 See_Comment [Automated messa ge] The system which generated this result transmitted reference range: 166 - 358 10*3/?L. The reference range was not used to interpret this result as normal/abnormal. MPV (test code = 68795-2) 9.6 fL 9.5-12.9 NRBC/100 WBC (test code = 1870517864) 0.0 See_Comment [Automated Plerts ssage] The system which generated this result transmitted reference range: 0.0 - 10.0 /100 WBCs. The reference range was not used to interpret this result as normal/abnormal. NRBC x10^3 (test code = 2862041457) See_Comment [Automated Netlifta ge] The system which generated this result transmitted reference range: 10*3/?L. The reference range was not used to interpret this result as normal/abnormal. GRAN MAT (NEUT) % (test code = 770-8) 42.2 % IMM GRAN % (test code = 7041598441) 0.20 % LYMPH % (test code = 736-9) 38.2 % MONO % (test code = 5905-5) 12.6 % EOS % (test code = 713-8) 5.8 % BASO % (test code = 706-2) 1.0 % GRAN MAT x10^3(ANC) (test code = 5820707076) 2.60 10*3/uL 1.88-7.09 IMM GRAN x10^3 (test code = 6436371249) 0.00-0.06 LYMPH x10^3 (test code = 731-0) 2.36 10*3/uL 1.32-3.29 MONO x10^3 (test code = 742-7) 0.78 10*3/uL 0.33-0.92 EOS x10^3 (test code = 711-2) 0.36 10*3/uL 0.03-0.39 BASO x10^3 (test code = 704-7) 0.06 10*3/uL 0.01-0.07 Lab Interpretation (test code = 92928-9) Abnormal [facility] WO PEKXDKIE3248-95-70 22:34:12 Impression: 1. ?No acute intracranial process. [...] he patient. Please correlate with history and physicalexamination.[facility] CERVICAL SPINE 2 CI9997-95-01 22:29:40No acute osseous abnormality. Preliminary Report Dictated [...] reviewed this study and agree with theabove report.[facility] WITH LJZOWECGSBDH0413-42-44 21:46:00* Test Item Value Reference Range Interpretation [...] 32.2 g/dL 31.6-35.1 RDW-SD (test code = 75043-3) 45.1 fL 39-49.9 RDW-CV (test code = 788-0) 14.6 % 12-15.5 PLT (test code = 777-3) See_Comment L [Automated messa ge] The system which generated this result transmitted reference range: 166 - 358 10*3/?L. The reference range was not used to interpret this result as normal/abnormal. MPV (test code = 46750-0) 9.0 fL 9.5-12.9 L NRBC/100 WBC (test code = 1954728995) See_Comment [Automated Plerts ssage] The system which generated this result transmitted reference range: 0.0 - 10.0 /100 WBCs. The reference range was not used to interpret this result as normal/abnormal. NRBC x10^3 (test code = 5077922926) <0.01 See_Comment [Automated messa ge] The system which generated this result transmitted reference range: 10*3/?L. The reference range was not used to interpret this result as normal/abnormal. GRAN MAT (NEUT) % (test code = 770-8) 51.3 % IMM GRAN % (test code = 3523611918) 0.40 % LYMPH % (test code = 736-9) 24.4 % MONO % (test code = 5905-5) 23.1 % EOS % (test code = 713-8) 0.4 % BASO % (test code = 706-2) 0.4 % GRAN MAT x10^3(ANC) (test code = 9294011333) 2.48 10*3/uL 1.88-7.09 IMM GRAN x10^3 (test code = 1854687108) <0.03 0-0.06 LYMPH x10^3 (test code = 731-0) 1.18 10*3/uL 1.32-3.29 L MONO x10^3 (test code = 742-7) 1.12 10*3/uL 0.33-0.92 H EOS x10^3 (test code = 711-2) <0.03 0.03-0.39 L BASO x10^3 (test code = 704-7) <0.03 0.01-0.07 Lab Interpretation (test code = 41433-1) Abnormal [facility] CERVICAL SPINE 2 FZ3544-81-02 03:28:03No acute osseous abnormality. Preliminary Report Dictated [...] this study and agree withthe above report. [facility] HospitalValproic Acid Iidca1245-23-68 08:03:22* Test Item Value Reference Range Interpretation Comme nts Valproic Acid Level (test co de = Valproic Acid Level) 57.6 ug/mL(g) 50.0-100.0 Hemoglobin E3d4013-08-79 09:36:00* Test Item Value Reference Range Interpretation Comme nts Hemoglobin A1c (test code = Hemoglobin A1c) 5.0 % 4.8-5.9 Non Diabetic 4.8-5.9%Diabetic <7.0% CT Shoulder w/o Contrast Nlsb1395-45-12 16:49:13Patient: BHUMIKA JONES Date/Time01/09/2019 16:14 CDTReason for [...] Adam FSigned (Electronic Signature): 01/09/2019 4:49 pmRPR Tqosnbgstny8730-91-79 21:33:20* Test Item Value Reference Range Interpretation [...] 04-23-2020 N XR Shoulder Complete 2+ Views Mnxp6629-29-38 15:41:25Patient: BHUMIKA JONES Date/Time01/07/2019 15:25 CDTReason for [...] CSigned (Electronic Signature): 01/07/2019 3:41 pmThyroid Stimulating Tqfzxgn4371-53-48 03:07:04* Test Item Value Reference Range Interpretation Comme nts TSH (test code = TSH) 9.650 mIU/mL 0.270-4.200 H Lipid Aedzq2198-80-62 03:07:03* Test Item Value Reference Range Interpretation Comme nts Cholesterol Total (test code = Cholesterol Total) 199 mg/dL 0-200 RISK OF HEART DISEASEPublished by [place] Heart Association Analyte Optimal Borderline Increased RiskCHOL [...] is LDL/HDL Ratio=LDL Calc/HDL Chol HCG Qualitative Zeves9924-86-03 02:33:13* Test Item Value Reference Range Interpretation Comme nts HCG, Serum Qual (test code = HCG, Serum Qual) Negative Lot # (test code = Lot #) [id number] N Expiration Dt (test code = Expiration Dt) 2020-04-23 N Neg Control (test code = Neg Control) Negative Pos Control (test code = Pos Control) Positive Internal QC (test code = Int ernal QC) Acceptable Drugs of Abuse Urine 38902-78-85 18:58:11* Test Item Value Reference Range Interpretation [...] = Cannabinoid Screen Ur) Negative Negative Alcohol Kekno6827-40-47 18:47:34* Test Item Value Reference Range Interpretation Comme nts Ethanol Level (test code = Ethanol Level) <0.00 g/dL 0.00-0.01 Intoxicated 0.08 0 g/dL or more Ethanol Inst (test code = Ethanol Inst) <0 N Comprehensive Metabolic Epycj1588-78-92 18:47:33* Test Item Value Reference Range Interpretation [...] A/G Ratio) 1.0 ratio N Comprehensive Metabolic Aswno6227-91-97 18:47:33* Test Item Value Reference Range Interpretation [...] is not provided, and the patient is -Greek, multiply by 1.212. If sex is not [...] the National Kidney Foundation, http://nkdep.nih.gov Comprehensive Metabolic Kuhza9118-21-11 18:47:33* Test Item Value Reference Range Interpretation [...] is not provided, and the patient is -Greek, multiply by 1.212. If sex is not [...] is not provided, and the patient is -Greek, multiply by 1.212. If sex is not [...] recommended by the National Kidney Foundation, http://nkdep.nih.gov IG Pnilz4419-33-10 18:15:23* Test Item Value Reference Range Interpretation Comme nts IG (test code = IG) 0.2 % 0.0-5.0 IG Abs (test code = IG Abs) 0 x10 N Complete Blood Count with Mqdvwpfzmiwy8561-48-77 18:15:23* Test Item Value Reference Range Interpretation [...] code = IPF) 0 % N Automated Speejdixjhco4652-27-35 18:15:23* Test Item Value Reference Range Interpretation Comme nts Neutro Auto (test code = Sunny tro Auto) 42.1 % 36.0-70.0 Lymph Auto (test code = Lymph Auto) 40.0 % 12.0-44.0 [place] Auto (test code = [place] Auto) 12.2 % 0.0-11.0 H Eos, Auto (test code = Eos, Auto) 4.9 % 0.0-7.0 Basophil Auto (test code = B asophil Auto) 0.6 % 0.0-2.0 Neutro Absolute (test code = Neutro Absolute) 2.2 x10 1.6-7.4 Lymph Absolute (test code = Lymph Absolute) 2.06 x10 .50-4.60 [place] Absolute (test code = M richa Absolute) .63 x10 .00-1.20 Eos Absolute (test code = Eo s Absolute) 0.25 x10 0.00-0.74 Baso Absolute (test code = B aso Absolute) 0.03 x10 0.00-0.21 Notes Date/Time Note Provider Source 2022-10-11 12:29:00 [id number] MIyEeQFPwS8tA+gxL9lKDgOJaodsP QihEUnZqevLIPX3F3WKM02KQEFh5225-33-29K13:29:00 [facility] ([facility])Hospitalist Discharge SummaryREPORT#:[id number] REPORT STATUS: SignedDATE:10/11/22 TIME: 1229 PATIENT: BHUMIKA JONES UNIT #: [id number]#: [id number] [address] [birth year] AGE: 47 SEX: F ATTEND: [...] patient this morning with the help of cub reporter and she said that he lives with [...] capillary refill, normal range of motion, no edemaNeuro/INDUSTRIAL MAINTENANCE MILLWRIGHT: altered mental status, alert Discharge Instructions PCPDischarge to: Home/Self CareAdditional Discharge Routines: PCP Follow-UpDiet: Resume Home Diet/FeedsActivity: As Tolerated Follow-up AppointmentsPCP follow-up: PCP: No Primary or Family Physician PCP follow up timeframe: In 6 days at 1230 RPT #:[id number] OF REPORTDSDischarge uhnkfbr7354-54-27B51:29:00B.JQLK17145606-1175VXLf ailable for patient lzgtGROZWEKMFEVQMZ0266-41-65V22:30:16 [facility] 2022-09-18 17:27:00 [id number] AmQcIUqFT6IZPZReCYHScMRguMnn1 YQdb0WmOSF+Jp8JgBInzaqQs0sP4127-60-52U66:27:00 [facility] ([facility])Electroencephalogram-EEGREPORT#:[id number] REPORT STATUS: SignedDATE:09/18/22 TIME: 172 PATIENT: BHUMIKA JONES UNIT #: [id number]#: [id number] ROOM/BED: 267-1DOB: [birth year] AGE: 47 SEX: F ATTEND: Marly Mendenhall [facility] AUTHOR: Nelia Parker MD * ALL [...] 09 CAN (DEPAKOTE ER "INTERIANO" PO 10/18 0901 (NF)) Levetiracetam 750 MG Q12HR 09/18 0900 CAN (KEPPRA IV) IV 10/18 09 Sodium Chloride 92.5 ML (SODIUM CHLORIDE 0.9%) Levetiracetam 750 MG Q12HR 09/18 0900 DC 09/18 (KEPPRA IV) IV 10/18 0901 0823 Risperidone 3 MG DAILY 09/18 09 [...] open eyes (commands were obtained using a epic professional) with opening the eyes the patient would [...] further info. Currently waiting for further information frommily regarding events. Unfortunately limited history is no provided information on what is the event semiology as outpatient except with the patientmentioned. at 1736 RPT #:[id number] OF REPORTDIDiagnostic ogsxvsn5372-58-66X69:27:00B.OOEI66207941-0223WVXn ailable for patient ijxiLIAIWCKQVDTNDR7371-71-28U06:37:11 [facility] 2022-09-18 14:24:00 [id number] UIQUfDEC80MO2mfu0Vdii0hP3WnpQ Jh6sl4+Jt3lQwBVfYXoGAR9OBkg1610-31-16N43:24:00 [facility] ([facility])Neurology Consultation NoteREPORT#:[id number] REPORT STATUS: SignedDATE:09/18/22 TIME: 1424 PATIENT: BHUMIKA JONES UNIT #: [id number]#: [id number] ROOM[facility]ED: [facility]DOB: [birth year] AGE: 47 SEX: F ATTEND: Marly Mendenhall [facility] AUTHOR: Nelia Parker MD * ALL edits or amendments must be made on the electronic/computer document * See AddendumHistory of Present Illness HPIRequesting clinician: see consult orderReason for consult:"AMS"Chief complaint:wanting to go home for her familyHPI:47-year-old female [place] speaking only who was brought into the [...] and the patient was sent to [facility]. Reportedly per the patient she did not like the long-term and does not like the food there [...] or seizures prior to herbeing in the long-term. Per the patient she get upset that [...] to her family. Only ambulance records from [facility] for patient who was brought in here [...] available to confirm the history and the long-term location is unknown to contact someone who [...] Result Date Time Pulse Ox 100 09/18 1127 B/P 116/83 09/18 1127 B/P Mean 94.0 09/18 112 O2 Delivery Room air 09/18 112 Temp 98.2 09/18 1127 Pulse 64 09/18 1127 Resp 18 09/18 1127 FiO2 21 09/18 0915 PATIENT WEIGHT: Weight [...] <10 MG 09/18 09/18 09/17 09/17 0553 0578 1850 1519Chemistry Hemoglobin A1c (4.5 - 5.6 % [...] - 8.0 pH UNITS) 6.5 Ur Specific Hunter (1.001 - 1.035 SG) 1.013 Urine Protein [...] Impressions:CAT SCAN - CT HEAD/BRAIN W/O CONT 09/175 Report Impression - Status: SIGNED Entered: 09/17/2022 [...] from my end currently is needed. at 1509 Addendum 1: 09/18/22 1651 by Nelia Parker MD waiting on family member to confirm or give other parts of the history that might be helpful for her condition and whether had prior seizures in the past ornot. at 1652 RPT #:[id number] OF REPORTXEHdkmdmstcokb1249-67-41W21:24:00B.PDOC2 [id number] for patient soxqREXYWSDMONKIBL1583-45-54Q94:10:17 [facility] 2022-09-18 11:44:00 [id number] OhPS4rDacDToXUuOVs0V07xFxSmWj EkTBRbz7s/jLWwYglu1IUMiUCIy3424-72-70V47:44:00 [facility] Progress NoteREPORT#:[id number] REPORT STATUS: SignedDATE:09/18/22 TIME: 1144 PATIENT: BHUMIKA JONES UNIT #: [id number]#: [id number] [address] [birth year] AGE: 47 SEX: F ATTEND: [...] patient this morning with the help of cub reporter and she said that he lives with [...] capillary refill, normal range of motion, no edemaNeuro/INDUSTRIAL MAINTENANCE MILLWRIGHT: altered mental status, alert Diagnosis, Assessment Plan [...] afternoon if remains stable at 1147 RPT #:[id number] OF REPORTPRProgress uckr2078-56-49M27:44:00B.CBSL30990314-3079FXYcdhw able for patient milvYDNUUBXZNEZNZK3946-99-12H97:47:26 [facility] 2022-09-18 01:06:00 [id number] 1EaVgWikecli6bIX5n9FuTI7DAJjp rxnP6rWU5IiIt6GB+abG4xnB/lE3009-29-83M81:06:00 [facility] History PhysicalREPORT#:[id number] REPORT STATUS: SignedDATE:09/18/22 TIME: 0106 PATIENT: BHUMIKA JONES UNIT #: [id number]#: [id number] [address] [birth year] AGE: 47 SEX: F ATTEND: Marshall Orellana [facility] AUTHOR: Nelia Moffett MD * ALL [...] - 8.0 pH UNITS) 6.5 Ur Specific Hunter (1.001 - 1.035 SG) 1.013 Urine Protein [...] earlier today. Impression By: Leonardo Hunt M.D. Microbiology:09/17 2157 NASAL: MRSA Screen [...] Resp B/P B/P Mean Pulse Ox FiO2 03/27 36.6-36.8 61-73 15-19 117-145/74-90 92-108.5 99-100 Last Documented: Result Date Time Pulse Ox 99 09/17 2029 B/P 145/90 09/17 2029 B/P Mean 108.5 09/17 2029 Pulse 70 09/17 2029 Resp 16 09/17 2029 Temp 36.8 09/17 2008 O2 Delivery Room air 09/17 1929 24 hour I O ending at 0700: 09/18 0700 09/17 1900 Intake Total Output Total Balance Patient 72 kg Weight Weight Estimated Measurement Method Patient Weight and BMI Weight (kg): 72.000 BMI: 26.4 General appearance: awakeCardiovascular: regular rate rhythmRespiratory: decreased breath soundsAbdomen: softNeuro/INDUSTRIAL MAINTENANCE MILLWRIGHT: altered mental status, alert Diagnosis, Assessment PlanFree Text A P:HyponatremiaDo a work-upContinue Ringer lactate 50 cc/h monitor electrolytes Metabolic encephalopathyNeuro watchTreat underlying condition SchizophreniaContinue home medication once confirmed Seizure disorderContinue home medicationSeizure precaution DVT prophylaxisLovenoxAdvanced directive discussedMedication reviewed and reconciledBefore midnightI will sign off at 6 AM today further management by incoming MD thereafter at 0110 RPT #:[id number] OF REPORTHPHistory and physical ouwvbtrwuht5461-81-53L22:06:00B.FGCZ22203017-2855 AVAvailable for patient jxcqRVDGPLHQJKCIKG6313-70-61B73:10:56 [facility] 2022-09-17 14:34:00 [id number] HWz0/Kz9+m8wYUnvCJURKgNcIuFOI DDcIFbG336CcYWRUWM5Yr96H8is7189-95-22P07:34:00 [facility])EMERGENCY PROVIDER REPORTREPORT#:[id number] REPORT STATUS: SignedDATE:09/17/22 TIME: 1434 PATIENT: BHUMIKA JONES UNIT #: [id number]#: [id number] ROOM[facility]BED: [facility]AGE: 47 SEX: F PCP PHYS: No Primary or Family PhysicianSERVICE AUTHOR: Valentina Samayoa MD * ALL edits or amendments must be made on the electronic/computer document * HPI-General Illness Free Text HPI NotesFree Text HPI Ivoob90-kwsw-khk female presents after possible seizure episode at [facility], will assessment patient is not fully oriented, and cannot provide history of theevents of today when asked multiple times. Additional history limited as the patient is tearful and not fully oriented. I spoke to the patient's sister Lewis Chiang, phone #[phone] by phone, who reports the patient has been missing from home for 8 days. Reports when the patient is medically cleared they can come get the patient. Patient reportedly initially without medications[facility] the [facility] PMH: Seizures, schizophrenia. GeneralInitial Greet Date/Time [...] TABS Prov: 09/13/22 DC: 09/14/22 [address] (GINA CALLES) 1,000 MG PO DAILY DIVALPROEX (GINA CALLES) 1,000 MG PO DAILY #60 TABS Prov: 09/13/22 DC: 09/14/22 1459 entry examiner correction Reported MedicationsDIVALPROEX ER (DEPAKOTE ER) 1,000 [...] Ox 100 09/17 1530 B/P 120/78 09/17 153 B/P Mean 92 09/17 153 O2 Delivery Room air 09/17 1529 Pulse 61 09/17 1529 Resp 19 09/17 153 Temp 97.9 09/17 1431 Review of Vital [...] - 8.0 pH UNITS) 6.5 Ur Specific Hunter (1.001 - 1.035 SG) 1.013 Urine Protein [...] medication refill, drowsy, admitted, ultimately discharged [facility]]-My EKG interpretation: I directly visualized and interpreted [...] 1634 )( Accepted Date 09/17/22 at 1114RPT #:[id number] OF REPORTEDEmergency department wcddba3293-31-95C43:34:00B.YNDJ79909967-5915ZMXdm ilable for patient wqwbLNWTQWIDFCYUKG5475-23-33G70:14:25 [facility] 2022-09-17 00:19:00 [id number] wRlM2h9ieyx+/9FMdISqWV/sxJXR5 TZwaMBV+SjBBKra+/pFSk7tR9TW7848-78-86S92:19:00 [facility]EMERGENCY PROVIDER REPORTREPORT#:[id number] REPORT STATUS: SignedDATE:09/17/22 TIME: 0019 PATIENT: BHUMIKA JONES UNIT #: [id number]#: [id number] ROOM/BED:AGE: 47 SEX: F PCP PHYS: No Primary or Family PhysicianSERVICE AUTHOR: Asim Jack MD * ALL edits or amendments must be made on the electronic/computer document * HPI-General Illness GeneralInitial Greet Date/Time 09/16/22 4134 PresentationChief Complaint Anxiety, Not feeling well Free Text HPI NotesFree Text HPI NotesPatient brought in by EMS from local [facility] after increasing anxiety and concern for possible seizure activity. She was recently admitted here at [facility] and worked up for possible seizures. She [...] TABS Prov: 09/13/22 DC: 09/14/22 [address] TEOFILO CALLES) 1,000 MG PO DAILY DIVALPROEX DR TEOFILO CALLES) 1,000 MG PO DAILY #60 TABS Prov: 09/13/22 DC: 09/14/22 1459 entry examiner correction Reported MedicationsDIVALPROEX ER (DEPAKOTE ER) 1,000 [...] Lab Results InterpretationConsiderations Reviewed prior recordsResultsLaboratory Tests 09/16/22 2334:[Embedded Image Not Available]Laboratory Tests: 09/164 2334 Chemistry Sodium (133 - [...] % (Auto) (14.1 - 45.4 %) 29.6 [place] % (Auto) (2.5 - 11.7 %) 10.8 Eos % (Auto) (0.0 - 6.2 %) 2.9 Baso % (Auto) (0.0 - 2.1 %) 0.7 Gran # (2.0 - 13.7 k/mm3) 3.12 Lymph # (Auto) (0.6 - 3.8 K/mm3) 1.65 [place] # (Auto) (0.11 - 0.59 K/mm3) 0.60 [...] MDRADIOLOGY - XR CHEST 1 V 09/16 2304 Report Impression - Status: SIGNED Entered: 09/16/2022 2337 IMPRESSION:No acute cardiopulmonary disease.Impression By: NadiyaJH12 - Flo Jansen MD Lab Imaging StatementLaboratory radiographic studies reviewed and considered in the medical decision-making. ECG #1 InterpretationText/Dict [id number] EKG shows normal sinus rhythm and rate of 64. There is no acute ST elevation to suggest ischemia. Normal axis and intervals without significant hypertrophy or ectopy. Nonspecific T wave changes noted with low voltage. I personally reviewed and interpreted the EKG Re-Evaluation MDM Free Text MDM NotesFree Text MDM NotesPatient presents from local long-term with concern for possible seizure activity. I [...] for discharge. Patient urged to follow-[facility] with [facility] in the next 2 to 3 days [...] (Adult)Additional InstructionsPlease follow-up with [facility], [facility], and neurology. Return if any confusion, headache, stiff neck, fever, vomiting, or any other new concerns. Please take all your medications as instructedReferralsProvider Group: [facility] Follow-Up: 2-3 Days Provider Referral: Nelia Parker MD Follow-Up: 2-3 Days Address: [address] [place] [address] [address] [place] [address] Resource Referral: [facility] Follow-Up: 2-3 Days Address: [address] [place] [address] at 0140RPT #:[id number] OF REPORTEDEmergen department bftvqz5984-04-44V40:19:00B.GCBL11666184-0219WKTpa ilable for patient jrioDJKOPUZXDZZDNH1373-76-92Q81:41:10 [facility] 2022-09-15 12:06:00 [id number] IzdM7LP2stoc0qDBw2gsRciz1b+Qi 4T68gqWSkjBfXado7GhZ0z7W6370888-05-85R39:06:00 [facility])Electroencephalogram-EEGREPORT#:[id number] REPORT STATUS: SignedDATE:09/15/22 TIME: 1206 PATIENT: BHUMIKA JONES UNIT #: [id number]#: [id number] [address]: [address] [birth year] AGE: 47 SEX: F ATTEND: Vladimir Forbes [facility] AUTHOR: Vickie Lewis MD * ALL [...] or electrographic seizures recorded. at 1209 RPT #:[id number] OF REPORTDIDiagnostic kseitoo7051-85-68R34:06:00B.QVNX14303334-0205RYCt ailable for patient chyfGBSJDKLTBFPXNB0581-67-07N87:09:33 [facility] 2022-09-15 12:00:00 [id number] A96VGlhJGhYCAWkfIRwo/SeeLoMjm IfBk0dIiY6ExqSd1eSQ9Xwf/vH66701-28-25H23:00:00 [facility] ([facility])Hospitalist Discharge SummaryREPORT#:[id number] REPORT STATUS: SignedDATE:09/15/22 TIME: 1200 PATIENT: BHUMIKA JONES UNIT #: [id number]#: [id number] ROOM/BED: [facility]-WDOB: [birth year] AGE: 47 SEX: F ATTEND: Vladimir Forbes [facility] AUTHOR: Vladimir Forbes MD * ALL [...] evaluated for possible seizure episode. 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 Patient denies to have any seizure episodes at home she just ran out of her medications and came to the hospital. Patient otherwise remains hemodynamically stable. However she is too drowsy to be discharged safely back home. I discussed the case with the patient.She wants her medications to be refilled and that she wants to go back to her long-term.I discussed with her about potential seizure episodes in the future use of medications compliance with the medications and further prescriptions. She states that she would management to the long-term. I have requested case management to evaluate [...] initial diagnosis and related differentials with the patient/field care coordinator including RN. All concerns and questions are answered to the best of my abilities based on theavailable data.I have initiated the plan of care based on preliminary diagnosis,requested appopriate consultations with labs/imagings. Patient/field care coordinator verbalizes understanding of the plan of care. [...] timeframe: In 1-2 weeks at 1202 RPT #:[id number] OF REPORTDSDischarge ynlfbjj6792-93-36I96:00:00B.RQHH14698930-7561BUVl ailable for patient gpgyULNMZCIYFSPVCA7139-00-74F58:03:09 [facility] 2022-09-14 16:56:00 [id number] 1GcvK3GEX7+lk5z7F29KaKP7H1/2M IcHH2S0e4pked+ngWoHTO85U/kC5303-10-38I53:56:00 [facility] ([facility])Neurology Consultation NoteREPORT#:[id number] REPORT STATUS: SignedDATE:09/14/22 TIME: 1656 PATIENT: BHUMIKA JONES UNIT #: [id number]#: [id number] ROOM/BED: [facility]-WDOB: [birth year] AGE: 47 SEX: F ATTEND: Jim Jaimes [facility] AUTHOR: Vickie Lweis MD * ALL edits [...] evaluated for possible seizure episode. 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 Patient denies to have any [...] (SODIUM CHLORIDE 0.9% 1000 ML) 1,000 ML .K71R44C IV Trazodone HCl (DESYREL) 50 MG BEDTIME PRN PRN PO Sodium Chloride (SODIUM CHLORIDE 0.9% 1000 ML) 1,000 ML .K15T10D IV Carbamazepine (TEGretol) 400 MG BID PO Divalproex Sodium (DEPAKOTE DR) 1,000 MG BID PO (DC) Acetaminophen (TYLENOL) 650 MG Q6H PRN PRN PO Ondansetron HCl (ZOFRAN) 4 MG Q4H PRN PRN IV Ceftriaxone Sodium (ROCEPHIN) 1 GM Q24H IV (CAN) Lactated Ringer's (LACTATED RINGERS) 1,000 ML .D94D93U IV Ceftriaxone Sodium (ROCEPHIN) 1 GM X1ED [...] % (Auto) (14.1 - 45.4 %) 33.6 [place] % (Auto) (2.5 - 11.7 %) 13.4 H Eos % (Auto) (0.0 - 6.2 %) 7.4 H Baso % (Auto) (0.0 - 2.1 %) 0.9 Gran # (2.0 - 13.7 k/mm3) 2.61 Lymph # (Auto) (0.6 - 3.8 K/mm3) 1.96 [place] # (Auto) (0.11 - 0.59 K/mm3) 0.78 [...] - 8.0 pH UNITS) 6.0 Ur Specific Hunter (1.001 - 1.035 SG) 1.032 Urine Protein [...] radiographic evidence of acute cardiopulmonary process.Impression By: Aazel.MKM4 - Igor Almonte, [facility] SCAN - CT HEAD/BRAIN W/O CONT 09/14 [...] deferred to primary team. at 1707 RPT #:[id number] OF REPORTGISsfcxvtvxixv5999-67-41X87:56:00B.PDOC2 [id number] for patient nylvSWPTLFVVMCVJLZ8305-17-02Y17:07:40 [facility] 2022-09-14 14:55:00 [id number]/JIADP4 x5Q3XMaM40bP8SJIvswlJB6yge5A9 RKFjVJWaDAA8zbAQ8OPGOWOUtM73919-00-07L02:55:00 [facility] ([facility])Hospitalist History PhysicalREPORT#:[id number] REPORT STATUS: SignedDATE:09/14/22 TIME: 1455 PATIENT: BHUMIKA JONES UNIT #: [id number]#: [id number] ROOM[facility]BED: [address]: [birth year] AGE: 47 SEX: F ATTEND: Jim Jaimes [facility] AUTHOR: Vladimir Forbes MD * ALL [...] evaluated for possible seizure episode. 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 Patient denies to have any [...] % (Auto) (14.1 - 45.4 %) 33.6 [place] % (Auto) (2.5 - 11.7 %) 13.4 H Eos % (Auto) (0.0 - 6.2 %) 7.4 H Baso % (Auto) (0.0 - 2.1 %) 0.9 Gran # (2.0 - 13.7 k/mm3) 2.61 Lymph # (Auto) (0.6 - 3.8 K/mm3) 1.96 [place] # (Auto) (0.11 - 0.59 K/mm3) 0.78 [...] - 8.0 pH UNITS) 6.0 Ur Specific Hunter (1.001 - 1.035 SG) 1.032 Urine Protein [...] cardiopulmonary process.Impression By: NadiyaMKM4 - Igor Almonte, [facility] SCAN - CT HEAD/BRAIN W/O CONT 09/14 [...] evaluated for possible seizure episode. 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 Patient denies to have any [...] initial diagnosis and related differentials with the patient/field care coordinator including RN. All concerns and questions are answered to the best of my abilities based on theavailable data.I have initiated the plan of care based on preliminary diagnosis,requested appopriate consultations with labs/imagings. Patient/field care coordinator verbalizes understanding of the plan of care. at 1501 RPT #:[id number] OF REPORTHPHistory and physical nuwfixxdgcc8863-78-26O88:55:00B.IYRR50653880-2715 AVAvailable for patient qxxeSWMFCZYSPUGMZB7559-12-65F88:01:57 [facility] 2022-09-14 04:21:00 [id number] iAYYfFOLVPbveh3JjoVpu/CRltByW oscYfQcM1aAZyVaIJPWgN/HHce58403-15-39X16:21:00 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 Shecontinues to [...] plan of care. at 0449 at 0540RPT #:[id number] OF REPORTEDEmergency department phtuou5812-49-52N79:21:00B.TOWN69694293-3307CTMcd ilable for patient lvwcBBMJMYLRSDGSIL1093-13-91M23:49:55 [facility] 2022-09-13 20:34:00 [id number] G68pukSbBYtiqgl8INYp5emO4deJl SaRUXCJYjsqkwaAPX4jKgE30srf2046-64-08D40:34:00 [facility] ([facility])EMERGENCY PROVIDER REPORTREPORT#:[id number] REPORT STATUS: SignedDATE:09/13/22 TIME: 2033 PATIENT: BHUMIKA JONES UNIT #: [id number]#: [id number] ROOM/BED: [facility]-WAGE: 47 SEX: F PCP PHYS: No Primary or Family PhysicianSERVICE AUTHOR: Stephanie Bosch * ALL edits or amendments must be made on the electronic/computer document * Provider in Triage - Adult Provider in TriageInitial Greet Date/Time 09/13/22 2018 Sarita Butt have greeted and performed a focused rapid [...] (RisperDAL) 3 MG PO DAILY at 1707RPT #:[id number] OF REPORTEDEmergency department zbpygg1396-04-48Y03:34:00B.CABX15670589-6554QBCvf ilable for patient gvkpDEPFAKLFYPBVOH7538-57-78X96:08:12 [facility] 2022-09-13 09:58:00 [id number] LdsKpfhLqnF1GZVkmscHSMMiNbal4 xLFuWbMb4PfALkQhidrMk4oS3lx7948-07-63W42:58:00 [facility] ([facility])EMERGENCY PROVIDER REPORTREPORT#:[id number] REPORT STATUS: SignedDATE:09/13/22 TIME: 09 PATIENT: BHUMIKA JONES UNIT #: [id number]#: [id number] ROOM/BED:AGE: 47 SEX: F PCP PHYS: No Primary or Family PhysicianSERVICE AUTHOR: Brad Woodall DO * ALL edits or amendments must be made on the electronic/computer document * HPI-General Illness Free Text HPI NotesFree Text HPI Rwbfb85-gjro-ggw female past medical history epilepsy out of [...] - 8.0 pH UNITS) 6.0 Ur Specific Hunter (1.001 - 1.035 SG) 1.024 Urine Protein [...] % (Auto) (14.1 - 45.4 %) 34.0 [place] % (Auto) (2.5 - 11.7 %) 10.1 Eos % (Auto) (0.0 - 6.2 %) 2.7 Baso % (Auto) (0.0 - 2.1 %) 0.7 Gran # (2.0 - 13.7 k/mm3) 3.04 Lymph # (Auto) (0.6 - 3.8 K/mm3) 1.98 [place] # (Auto) (0.11 - 0.59 K/mm3) 0.59 [...] Interpreted by me Time 0959 ECG #1 InterpretationECG Documented in [...] 88 09/14 935 Resp 14 09/14 935 All vital signs available at the time [...] MG PO BEDTIME #[address] (DEPAKOTE DR) 1,000 MG PO DAILY DIVALPROEX DR (DEPAKOTE DR) 1,000 MG PO DAILY #60 TABS carBAMazepine [...] or a call to 911. at 1327RPT #:[id number] OF REPORTEDEmermercy hospital [facility] [place] department kdpylo9206-93-37H14:58:00B.IAYR93945745-2335NHMbc ilable for patient wesbWSFQPJMSITABMS1452-84-78H08:28:04 [facility]
--- NOTE | 2023-07-29 18:01 | ER ---
Nurse's Notes [facility] Name: Sidra Hodges Age: 48 yrs Sex: Female : 1975 Arrival Date: 07/29/2023 Time: 17:19 Bed IW10 Private MD: Diagnosis: Chest pain, unspecified Assessment: 07/29 17:54 Reassessment: called for patient, she was not in waiting room. ko1 ED Course: 17:20 Patient arrived in ED. mr 17:21 Cristina Sewell FNP-C is [facility]. kb 17:21 Ramiro Piña DO is Attending Physician. kb Administered Medications: No medications were administered Outcome: 18:00 Discharge ordered by MD. kb 18:07 Patient left the ED. kb Signatures: Cristina Sewell FNP-C FNP-Yanira Reyes, Reg Reg mr Mi Trinh, RN RN ko1
--- NOTE | 2023-07-29 18:01 | EDPHYS ---
Physician Documentation [facility] Name: Sidra Hodges Age: 48 yrs Sex: Female : 1975 Arrival Date: 07/29/2023 Time: 17:19 Bed IW10 Private MD: ED Physician Ramiro Piña HPI: 07/29 17:24 This 48 yrs old Female presents to ER via Unassigned with complaints of Back kb Pain, Chest Pain. 17:59 Pt is a 48 year old female who presents for chest and back pain. States she doesn't kb have any food at her house so she hasn't eaten and then became tearful. . ROS: 17:24 Constitutional: Negative for fever, chills, and weight loss, kb 17:24 Cardiovascular: Positive for chest pain, 17:24 All other systems are negative, Exam: 17:23 Constitutional: This is a well developed, well nourished patient who is awake, alert, kb and in no acute distress. Head/Face: Normocephalic, atraumatic. ENT: Moist Mucous membranes Cardiovascular: Regular rate Respiratory: Respirations even and unlabored. No increased work of breathing. Talking in full sentences Abdomen/GI: Soft, non-tender. No distention Skin: Warm, dry with normal turgor. Normal color. MDM: 17:21 Patient medically screened. kb 17:23 Data reviewed: vital signs, nurses notes. Historians other than the Patient: EMS: [facility]. 18:00 Differential diagnosis: abnormal EKG, acute myocardial infarction, anxiety. ED course: [facility] Pt elected to leave from lobby after she was brought in by EMS, prior to diagnostic testing. . 07/29 17:21 Order name: Cardiac monitoring 07/29 17:21 Order name: EKG - Nurse/Tech 07/29 17:21 Order name: IV Saline Lock 07/29 17:21 Order name: Labs collected and sent 07/29 17:21 Order name: O2 Per Protocol 07/29 17:21 Order name: O2 Sat Monitoring kb Administered Medications: No medications were administered Disposition: 18:08 I was immediately available on-site in the Emergency Department for consultation in [place] [facility] [place] patient. Disposition Summary: 07/29/23 18:00 Discharge Ordered Notes: Location: Home kb Condition: Stable kb Diagnosis - Chest pain, unspecified kb Followup: kb - With: Emergency Department - When: As needed - Reason: Worsening of condition Followup: kb - With: Private Physician - When: 2 - 3 days - Reason: Recheck today's complaints, Continuance of care, Re-evaluation by your physician Forms: - Medication Reconciliation Form kb - Thank You Letter kb - Antibiotic Education kb - Prescription Opioid Use kb - Patient Portal Instructions kb - Leadership Thank You Letter kb Signatures: Dispatcher [employer] EDCristina Salguero, GUERDA-Ellis CROFT-Ramiro Stiles DO DO ms3
== END ==
LOC: ER 17:19
DX: R07.9 Chest pain, unspecified (principal)

== ENCOUNTER → 2023-08-05 | Emergency (ER) | payer SELFPAY ==
[~2023-08-05] MED LIST changes: +ASPIRIN 81 MG CHEWABLE TABLET ONE; -LIDOCAINE 1% 20 ML MDV ONE
--- OUTSIDE RECORDS SUMMARY | 2023-08-05 09:03 | XMS REPORT | Continuity of Care Document ---
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 [facility] OXcarbazepi ne (TRILEPTAL) 300 mg tablet 10-22 00:58: 10 Yes Take by mouth. [facility] divalproex ER (DEPAKOTE ER) 500 mg 24 hr tablet 10-22 00:58: 10 Yes 500mg Take 500 mg by mouth every 24 (twenty-fo ur) hours. [facility] OXcarbazepi ne (TRILEPTAL) 300 mg tablet 10-22 00:58: 10 Yes Take by mouth. [facility] divalproex ER (DEPAKOTE ER) 500 mg 24 hr tablet 10-22 00:58: 10 Yes 500mg Take 500 mg by mouth every 24 (twenty-fo ur) hours. [facility] OXcarbazepi ne (TRILEPTAL) 300 mg tablet 10-22 00:58: 10 Yes Take by mouth. [facility] divalproex ER (DEPAKOTE ER) 500 mg 24 hr tablet 10-22 00:58: 10 Yes 500mg Take 500 mg by mouth every 24 (twenty-fo ur) hours. [facility] OXcarbazepi ne (TRILEPTAL) 300 mg tablet 10-22 00:58: 10 Yes Take by mouth. [facility] ARIPiprazol e (ABILIFY) 2 mg tablet 10-21 19:58: 47 Yes 2mg Take 2 mg by mouth daily. [facility] ARIPiprazol e (ABILIFY) 2 mg tablet 10-21 19:58: 47 Yes 2mg Take 2 mg by mouth daily. [facility] ARIPiprazol e (ABILIFY) 2 mg tablet 10-21 19:58: 47 Yes 2mg Take 2 mg by mouth daily. [facility] ARIPiprazol e (ABILIFY) 2 mg tablet 10-21 19:58: 47 Yes 2mg Take 2 mg by mouth daily. [facility] ARIPiprazol e (ABILIFY) 2 mg tablet 10-21 19:58: 47 Yes 2mg Take 2 mg by mouth daily. [facility] ARIPiprazol e (ABILIFY) 2 mg tablet 10-21 19:58: 47 Yes 2mg Take 2 mg by mouth daily. [facility] ARIPiprazol e (ABILIFY) 2 mg tablet 10-21 19:58: 47 Yes 2mg Take 2 mg by mouth daily. [facility] ARIPiprazol e (ABILIFY) 2 mg tablet 10-21 19:58: 47 Yes 2mg Take 2 mg by mouth daily. [facility] ARIPiprazol e (ABILIFY) 2 mg tablet 10-21 19:58: 47 Yes 2mg Take 2 mg by mouth daily. [facility] ARIPiprazol e (ABILIFY) 2 mg tablet 10-21 19:58: 47 Yes 2mg Take 2 mg by mouth daily. [facility] ARIPiprazol e (ABILIFY) 2 mg tablet 10-21 19:58: 47 Yes 2mg Take 2 mg by mouth daily. [facility] ARIPiprazol e (ABILIFY) 2 mg tablet 10-21 19:58: 47 Yes 2mg Take 2 mg by mouth daily. [facility] ARIPiprazol e (ABILIFY) 2 mg tablet 10-21 19:58: 47 Yes 2mg Take 2 mg by mouth daily. [facility] ARIPiprazol e (ABILIFY) 2 mg tablet 10-21 19:58: 47 Yes 2mg Take 2 mg by mouth daily. [facility] ARIPiprazol e (ABILIFY) 2 mg tablet 10-21 19:58: 47 Yes 2mg Take 2 mg by mouth daily. [facility] divalproex ER (DEPAKOTE ER) 500 mg 24 hr tablet 10-21 19:58: 10 Yes 500mg Take 500 mg by mouth every 24 (twenty-fo ur) hours. [facility] OXcarbazepi ne (TRILEPTAL) 300 mg tablet 10-21 19:58: 10 Yes Take by mouth. [facility] divalproex ER (DEPAKOTE ER) 500 mg 24 hr tablet 10-21 19:58: 10 Yes 500mg Take 500 mg by mouth every 24 (twenty-fo ur) hours. [facility] OXcarbazepi ne (TRILEPTAL) 300 mg tablet 10-21 19:58: 10 Yes Take by mouth. [facility] divalproex ER (DEPAKOTE ER) 500 mg 24 hr tablet 10-21 19:58: 10 Yes 500mg Take 500 mg by mouth every 24 (twenty-fo ur) hours. [facility] OXcarbazepi ne (TRILEPTAL) 300 mg tablet 10-21 19:58: 10 Yes Take by mouth. [facility] divalproex ER (DEPAKOTE ER) 500 mg 24 hr tablet 10-21 19:58: 10 Yes 500mg Take 500 mg by mouth every 24 (twenty-fo ur) hours. [facility] OXcarbazepi ne (TRILEPTAL) 300 mg tablet 10-21 19:58: 10 Yes Take by mouth. [facility] divalproex ER (DEPAKOTE ER) 500 mg 24 hr tablet 10-21 19:58: 10 Yes 500mg Take 500 mg by mouth every 24 (twenty-fo ur) hours. [facility] OXcarbazepi ne (TRILEPTAL) 300 mg tablet 10-21 19:58: 10 Yes Take by mouth. [facility] divalproex ER (DEPAKOTE ER) 500 mg 24 hr tablet 10-21 19:58: 10 Yes 500mg Take 500 mg by mouth every 24 (twenty-fo ur) hours. [facility] OXcarbazepi ne (TRILEPTAL) 300 mg tablet 10-21 19:58: 10 Yes Take by mouth. [facility] divalproex ER (DEPAKOTE ER) 500 mg 24 hr tablet 10-21 19:58: 10 Yes 500mg Take 500 mg by mouth every 24 (twenty-fo ur) hours. [facility] OXcarbazepi ne (TRILEPTAL) 300 mg tablet 10-21 19:58: 10 Yes Take by mouth. [facility] divalproex ER (DEPAKOTE ER) 500 mg 24 hr tablet 10-21 19:58: 10 Yes 500mg Take 500 mg by mouth every 24 (twenty-fo ur) hours. [facility] OXcarbazepi ne (TRILEPTAL) 300 mg tablet 10-21 19:58: 10 Yes Take by mouth. [facility] divalproex ER (DEPAKOTE ER) 500 mg 24 hr tablet 10-21 19:58: 10 Yes 500mg Take 500 mg by mouth every 24 (twenty-fo ur) hours. [facility] OXcarbazepi ne (TRILEPTAL) 300 mg tablet 10-21 19:58: 10 Yes Take by mouth. [facility] (DEPAKOTE ER) 500 mg 24 hr tablet 10-21 19:58: 10 Yes 500mg Take 500 mg by mouth every 24 (twenty-fo ur) hours. [facility] OXcarbazepi ne (TRILEPTAL) 300 mg tablet 10-21 19:58: 10 Yes Take by mouth. [facility] divalproex ER (DEPAKOTE ER) 500 mg 24 hr tablet 10-21 19:58: 10 Yes 500mg Take 500 mg by mouth every 24 (twenty-fo ur) hours. [facility] OXcarbazepi ne (TRILEPTAL) 300 mg tablet 10-21 19:58: 10 Yes Take by mouth. [facility] divalproex ER (DEPAKOTE ER) 500 mg 24 hr tablet 10-21 19:58: 10 Yes 500mg Take 500 mg by mouth every 24 (twenty-fo ur) hours. [facility] OXcarbazepi ne (TRILEPTAL) 300 mg tablet 10-21 19:58: 10 Yes Take by mouth. [facility] divalproex ER (DEPAKOTE ER) 500 mg 24 hr tablet 10-21 19:58: 10 Yes 500mg Take 500 mg by mouth every 24 (twenty-fo ur) hours. [facility] OXcarbazepi ne (TRILEPTAL) 300 mg tablet 10-21 19:58: 10 Yes Take by mouth. [facility]al[facility]ex [facility] (DEPAKOTE ER) 500 mg 24 hr tablet 10-21 19:58: 10 Yes 500mg Take 500 mg by mouth every 24 (twenty-fo ur) hours. [facility] OXcarbazepi ne (TRILEPTAL) 300 mg tablet 10-21 19:58: 10 Yes Take by mouth. [facility] divalproex ER (DEPAKOTE ER) 500 mg 24 hr tablet 10-21 19:58: 10 Yes 500mg Take 500 mg by mouth every 24 (twenty-fo ur) hours. [facility] OXcarbazepi ne (TRILEPTAL) 300 mg tablet 10-21 19:58: 10 Yes Take by mouth. [facility] naproxen (NAPROSYN) 500 mg tablet 10-21 00:00: 00 Yes 500mg Take 1 tablet by mouth 2 (two) times daily with meals. [facility] naproxen (NAPROSYN) 500 mg tablet 10-21 00:00: 00 Yes 500mg Take 1 tablet by mouth 2 (two) times daily with meals. [facility] naproxen (NAPROSYN) 500 mg tablet 10-21 00:00: 00 Yes 500mg Take 1 tablet by mouth 2 (two) times daily with meals. [facility] naproxen (NAPROSYN) 500 mg tablet 10-21 00:00: 00 Yes 500mg Take 1 tablet by mouth 2 (two) times daily with meals. [facility] naproxen (NAPROSYN) 500 mg tablet 10-21 00:00: 00 Yes 500mg Take 1 tablet by mouth 2 (two) times daily with meals. [facility] naproxen (NAPROSYN) 500 mg tablet 10-21 00:00: 00 Yes 500mg Take 1 tablet by mouth 2 (two) times daily with meals. [facility] naproxen (NAPROSYN) 500 mg tablet 10-21 00:00: 00 Yes 500mg Take 1 tablet by mouth 2 (two) times daily with meals. [facility] naproxen (NAPROSYN) 500 mg tablet 10-21 00:00: 00 Yes 500mg Take 1 tablet by mouth 2 (two) times daily with meals. [facility] naproxen (NAPROSYN) 500 mg tablet 10-21 00:00: 00 Yes 500mg Take 1 tablet by mouth 2 (two) times daily with meals. [facility] naproxen (NAPROSYN) 500 mg tablet 10-21 00:00: 00 Yes 500mg Take 1 tablet by mouth 2 (two) times daily with meals. [facility]en (NAPROSYN[facility] 500 mg tablet 10-21 00:00: 00 Yes 500mg Take 1 tablet by mouth 2 (two) times daily with meals. [facility] naproxen (NAPROSYN) 500 mg tablet 10-21 00:00: 00 Yes 500mg Take 1 tablet by mouth 2 (two) times daily with meals. [facility] naproxen (NAPROSYN) 500 mg tablet 10-21 00:00: 00 Yes 500mg Take 1 tablet by mouth 2 (two) times daily with meals. [facility] naproxen (NAPROSYN) 500 mg tablet 10-21 00:00: 00 Yes 500mg Take 1 tablet by mouth 2 (two) times daily with meals. [facility] naproxen (NAPROSYN) 500 mg tablet 10-21 00:00: 00 Yes 500mg Take 1 tablet by mouth 2 (two) times daily with meals. [facility] naproxen (NAPROSYN) 500 mg tablet 10-21 00:00: 00 Yes 500mg Take 1 tablet by mouth 2 (two) times daily with meals. [facility] naproxen (NAPROSYN) 500 mg tablet 10-21 00:00: 00 Yes 500mg Take 1 tablet by mouth 2 (two) times daily with meals. [facility] naproxen (NAPROSYN) 500 mg tablet 10-21 00:00: 00 Yes 500mg Take 1 tablet by mouth 2 (two) times daily with meals. [facility] naproxen (NAPROSYN) 500 mg tablet 10-21 00:00: 00 Yes 500mg Take 1 tablet by mouth 2 (two) times daily with meals. [facility] naproxen (NAPROSYN) 500 mg tablet 10-21 00:00: 00 Yes 500mg Take 1 tablet by mouth 2 (two) times daily with meals. [facility] naproxen (NAPROSYN) 500 mg tablet 10-21 00:00: 00 Yes 500mg Take 1 tablet by mouth 2 (two) times daily with meals. [facility] naproxen (NAPROSYN) 500 mg tablet 10-21 00:00: 00 Yes 500mg Take 1 tablet by mouth 2 (two) times daily with meals. [facility] ibuprofen 600 mg tablet 02-06 00:00: 00 Yes 600mg Take 1 tablet by mouth every 8 (eight) hours as needed for Pain (scale 4-6). [facility] ibuprofen 600 mg tablet 02-06 00:00: 00 Yes 600mg Take 1 tablet by mouth every 8 (eight) hours as needed for Pain (scale 4-6). [facility] ibuprofen 600 mg tablet 02-06 00:00: 00 Yes 600mg Take 1 tablet by mouth every 8 (eight) hours as needed for Pain (scale 4-6). [facility] ibuprofen 600 mg tablet 02-06 00:00: 00 Yes 600mg Take 1 tablet by mouth every 8 (eight) hours as needed for Pain (scale 4-6). [facility] ibuprofen 600 mg tablet 02-06 00:00: 00 Yes 600mg Take 1 tablet by mouth every 8 (eight) hours as needed for Pain (scale 4-6). [facility] ibuprofen 600 mg tablet 02-06 00:00: 00 Yes 600mg Take 1 tablet by mouth every 8 (eight) hours as needed for Pain (scale 4-6). [facility] ibuprofen 600 mg tablet 02-06 00:00: 00 Yes 600mg Take 1 tablet by mouth every 8 (eight) hours as needed for Pain (scale 4-6). [facility] ibuprofen 600 mg tablet 02-06 00:00: 00 Yes 600mg Take 1 tablet by mouth every 8 (eight) hours as needed for Pain (scale 4-6). [facility] ibuprofen 600 mg tablet 02-06 00:00: 00 05-05 00:00 :00 No 600mg Take 1 tablet by mouth every 8 (eight) hours as needed for Pain (scale 4-6). [facility] hydrocortis one 2.5 % rectal cream 2017-0 7-10 00:00: 00 Yes Insert into rectum 2 (two) times daily. [facility] hydrocortis one 2.5 % rectal cream 2017-0 7-10 00:00: 00 Yes Insert into rectum 2 (two) times daily. [facility] hydrocortis one 2.5 % rectal cream 2017-0 7-10 00:00: 00 Yes Insert into rectum 2 (two) times daily. [facility] hydrocortis one 2.5 % rectal cream 2017-0 7-10 00:00: 00 Yes Insert into rectum 2 (two) times daily. [facility] hydrocortis one 2.5 % rectal cream 2017-0 710 00:00: 00 Yes Insert into rectum 2 (two) times daily. [facility] hydrocortis one 2.5 % rectal cream 2017-0 710 00:00: 00 Yes Insert into rectum 2 (two) times daily. [facility] hydrocortis one 2.5 % rectal cream 2017-0 710 00:00: 00 Yes Insert into rectum 2 (two) times daily. [facility] hydrocortis one 2.5 % rectal cream 2017-0 710 00:00: 00 Yes Insert into rectum 2 (two) times daily. [facility] hydrocortis one 2.5 % rectal cream 2017-0 7-10 00:00: 00 Yes Insert into rectum 2 (two) times daily. [facility] hydrocortis one 2.5 % rectal cream 2017-0 7-10 00:00: 00 Yes Insert into rectum 2 (two) times daily. [facility] hydrocortis one 2.5 % rectal cream 2017-0 7-10 00:00: 00 Yes Insert into rectum 2 (two) times daily. [facility] hydrocortis one 2.5 % rectal cream 2017-0 7-10 00:00: 00 Yes Insert into rectum 2 (two) times daily. [facility] hydrocortis one 2.5 % rectal cream 2017-0 710 00:00: 00 Yes Insert into rectum 2 (two) times daily. [facility] hydrocortis one 2.5 % rectal cream [id number] 710 00:00: 00 Yes Insert into rectum 2 (two) times daily. [facility] hydrocortis one 2.5 % rectal cream 2017-0 710 00:00: 00 Yes Insert into rectum 2 (two) times daily. [facility] hydrocortis one 2.5 % rectal cream 20170 710 00:00: 00 Yes Insert into rectum 2 (two) times daily. [facility] hydrocortis one 2.5 % rectal cream [id number] 710 00:00: 00 Yes Insert into rectum 2 (two) times daily. [facility] hydrocortis one 2.5 % rectal cream 2016-0 710 00:00: 00 Yes Insert into rectum 2 (two) times daily. [facility] hydrocortis one 2.5 % rectal cream 0 710 00:00: 00 Yes Insert into rectum 2 (two) times daily. [facility] hydrocortis one 2.5 % rectal cream 2017-0 710 00:00: 00 Yes Insert into rectum 2 (two) times daily. [facility] hydrocortis one 2.5 % rectal cream 2016-0 710 00:00: 00 Yes Insert into rectum 2 (two) times daily. [facility] hydrocortis one 2.5 % rectal cream 0 710 00:00: 00 Yes Insert into rectum 2 (two) times daily. [facility] hydrocortis one (ANUSOL-HC) 25 mg suppository 30 00:00: 00 Yes 25mg Insert 1 Suppositor y into rectum 2 (two) times daily. [facility] hydrocortis one (ANUSOL-HC) 25 mg suppository 30 00:00: 00 Yes 25mg Insert 1 Suppositor y into rectum 2 (two) times daily. [facility] hydrocortis one (ANUSOL-HC) 25 mg suppository 07-23 00:00: 00 Yes 25mg Insert 1 Suppositor y into rectum 2 (two) times daily. [facility] hydrocortis one (ANUSOL-HC) 25 mg suppository 07-23 00:00: 00 Yes 25mg Insert 1 Suppositor y into rectum 2 (two) times daily. [facility] hydrocortis one (ANUSOL-HC) 25 mg suppository 07-23 00:00: 00 Yes 25mg Insert 1 Suppositor y into rectum 2 (two) times daily. [facility] hydrocortis one (ANUSOL-HC) 25 mg suppository 07-23 00:00: 00 Yes 25mg Insert 1 Suppositor y into rectum 2 (two) times daily. [facility] hydrocortis one (ANUSOL-HC) 25 mg suppository 07-23 00:00: 00 Yes 25mg Insert 1 Suppositor y into rectum 2 (two) times daily. [facility] hydrocortis one (ANUSOL-HC) 25 mg suppository 07-23 00:00: 00 Yes 25mg Insert 1 Suppositor y into rectum 2 (two) times daily. [facility] hydrocortis one (ANUSOL-HC) 25 mg suppository 07-23 00:00: 00 Yes 25mg Insert 1 Suppositor y into rectum 2 (two) times daily. [facility] hydrocortis one (ANUSOL-HC) 25 mg suppository 07-23 00:00: 00 Yes 25mg Insert 1 Suppositor y into rectum 2 (two) times daily. [facility] hydrocortis one (ANUSOL-HC) 25 mg suppository 07-23 00:00: 00 Yes 25mg Insert 1 Suppositor y into rectum 2 (two) times daily. [facility] hydrocortis one (ANUSOL-HC) 25 mg suppository 07-23 00:00: 00 Yes 25mg Insert 1 Suppositor y into rectum 2 (two) times daily. [facility] hydrocortis one (ANUSOL-HC) 25 mg suppository 07-23 00:00: 00 Yes 25mg Insert 1 Suppositor y into rectum 2 (two) times daily. [facility] hydrocortis one (ANUSOL-HC) 25 mg suppository 07-23 00:00: 00 Yes 25mg Insert 1 Suppositor y into rectum 2 (two) times daily. [facility] hydrocortis one (ANUSOL-HC) 25 mg suppository 07-23 00:00: 00 Yes 25mg Insert 1 Suppositor y into rectum 2 (two) times daily. [facility] hydrocortis one (ANUSOL-HC) 25 mg suppository 07-23 00:00: 00 Yes 25mg Insert 1 Suppositor y into rectum 2 (two) times daily. [facility] hydrocortis one (ANUSOL-HC) 25 mg suppository 07-23 00:00: 00 Yes 25mg Insert 1 Suppositor y into rectum 2 (two) times daily. [facility] hydrocortis one (ANUSOL-HC) 25 mg suppository 07-23 00:00: 00 Yes 25mg Insert 1 Suppositor y into rectum 2 (two) times daily. [facility] hydrocortis one (ANUSOL-HC) 25 mg suppository 07-23 00:00: 00 Yes 25mg Insert 1 Suppositor y into rectum 2 (two) times daily. [facility] hydrocortis one (ANUSOL-HC) 25 mg suppository 07-23 00:00: 00 Yes 25mg Insert 1 Suppositor y into rectum 2 (two) times daily. [facility] hydrocortis one (ANUSOL-HC) 25 mg suppository 07-23 00:00: 00 Yes 25mg Insert 1 Suppositor y into rectum 2 (two) times daily. [facility] hydrocortis one (ANUSOL-HC) 25 mg suppository 07-23 00:00: 00 Yes 25mg Insert 1 Suppositor y into rectum 2 (two) times daily. [facility] Vital Signs Vital Name Observation Time Observation Value Comments S veronica Body height 2023-07-23 20:19:00 152.4 cm [facility] Body weight 2023-07-23 20:19:00 77.837 kg [facility] BMI 2023-07-23 20:19:00 33.51 kg/m2 [facility] Height 2022-11-04 14:04:00 149.86 CM Weight 2022-11-04 14:04:00 73.02 KG Systolic blood pressure 2022-09-24 17:32:00 130 mm[Hg] [facility] Diastolic blood pressure 2022-09-24 17:32:00 85 mm[Hg] [facility] Heart rate 2022-09-24 17:32:00 64 /min [facility] Body temperature 2022-09-24 17:32:00 36.83 [facility] Respiratory rate 2022-09-24 17:32:00 18 /min [facility] Body weight 2022-09-24 17:32:00 74.844 kg [facility] BMI 2022-09-24 17:32:00 33.33 kg/m2 [facility] Oxygen saturation in Arterial blood by Pulse oximetry 2022-09-24 17:32:00 99 /min [facility] Systolic blood pressure 2022-09-10 23:55:00 111 mm[Hg] [facility] Diastolic blood pressure 2022-09-10 23:55:00 84 mm[Hg] [facility] Heart rate 2022-09-10 23:55:00 105 /min [facility] Body temperature 2022-09-10 23:55:00 37.33 [facility] Respiratory rate 2022-09-10 23:55:00 19 /min [facility] Systolic blood pressure 2022-09-10 01:44:00 126 mm[Hg] [facility] Diastolic blood pressure 2022-09-10 01:44:00 81 mm[Hg] [facility] Heart rate 2022-09-10 01:44:00 78 /min [facility] Body temperature 2022-09-10 01:44:00 36.56 [facility] Respiratory rate 2022-09-10 01:44:00 16 /min [facility] Body weight 2022-09-10 01:44:00 79.379 kg [facility] BMI 2022-09-10 01:44:00 35.35 kg/m2 [facility] Oxygen saturation in Arterial blood by Pulse oximetry 2022-09-10 01:44:00 100 /min [facility] Systolic blood pressure 2022-09-07 05:37:00 119 mm[Hg] [facility] Diastolic blood pressure 2022-09-07 05:37:00 67 mm[Hg] [facility] Heart rate 2022-09-07 05:37:00 79 /min [facility] Respiratory rate 2022-09-07 05:37:00 16 /min [facility] Oxygen saturation in Arterial blood by Pulse oximetry 2022-09-07 05:37:00 98 /min [facility] Body temperature 2022-09-06 23:05:00 36.78 [facility] Body weight 2022-09-06 23:05:00 79.379 kg [facility] BMI 2022-09-06 23:05:00 35.35 kg/m2 [facility] Systolic blood pressure 2021-10-02 20:55:00 111 mm[Hg] [facility] Diastolic blood pressure 2021-10-02 20:55:00 70 mm[Hg] [facility] Heart rate 2021-10-02 20:55:00 79 /min [facility] Body temperature 2021-10-02 20:55:00 36.61 [facility] Respiratory rate 2021-10-02 20:55:00 18 /min [facility] Body height 2021-10-02 20:55:00 149.9 cm [facility] Body weight 2021-10-02 20:55:00 79.379 kg [facility] BMI 2021-10-02 20:55:00 35.35 kg/m2 [facility] Oxygen saturation in Arterial blood by Pulse oximetry 2021-10-02 20:55:00 100 /min [facility] Systolic blood pressure 2021-05-05 19:20:00 102 mm[Hg] [facility] Diastolic blood pressure 2021-05-05 19:20:00 48 mm[Hg] [facility] Heart rate 2021-05-05 19:20:00 68 /min [facility] Body temperature 2021-05-05 19:20:00 36.94 [facility] Respiratory rate 2021-05-05 19:20:00 18 /min [facility] Body weight 2021-05-05 19:20:00 79.379 kg [facility] BMI 2021-05-05 19:20:00 35.35 kg/m2 [facility] Oxygen saturation in Arterial blood by Pulse oximetry 2021-05-05 19:20:00 99 /min [facility] Systolic blood pressure 2019-12-15 22:12:00 138 mm[Hg] [facility] Diastolic blood pressure 2019-12-15 22:12:00 100 mm[Hg] [facility] Heart rate 2019-12-15 22:12:00 77 /min [facility] Body temperature 2019-12-15 22:12:00 37.06 [facility] Respiratory rate 2019-12-15 22:12:00 20 /min [facility] Body weight 2019-12-15 22:12:00 79.379 kg [facility] BMI 2019-12-15 22:12:00 35.35 kg/m2 [facility] Oxygen saturation in Arterial blood by Pulse oximetry 2019-12-15 22:12:00 100 /min [facility] Systolic blood pressure 2019-12-15 22:12:00 138 mm[Hg] [facility] Diastolic blood pressure 2019-12-15 22:12:00 100 mm[Hg] [facility] Heart rate 2019-12-15 22:12:00 77 /min [facility] Body temperature 2019-12-15 22:12:00 37.06 [facility] Respiratory rate 2019-12-15 22:12:00 20 /min [facility] Body weight 2019-12-15 22:12:00 79.379 kg [facility] BMI 2019-12-15 22:12:00 35.35 kg/m2 [facility] Oxygen saturation in Arterial blood by Pulse oximetry 2019-12-15 22:12:00 100 /min [facility] Respiratory rate 2019-10-25 23:43:00 18 /min [facility] Body weight 2019-10-25 23:43:00 83.915 kg [facility] BMI 2019-10-25 23:43:00 37.37 kg/m2 [facility] Respiratory rate 2019-10-25 23:43:00 18 /min [facility] Body weight 2019-10-25 23:43:00 83.915 kg [facility] BMI 2019-10-25 23:43:00 37.37 kg/m2 [facility] Systolic blood pressure 2019-08-13 19:25:00 123 mm[Hg] [facility] Diastolic blood pressure 2019-08-13 19:25:00 88 mm[Hg] [facility] Heart rate 2019-08-13 19:25:00 78 /min [facility] Body temperature 2019-08-13 19:25:00 36.56 [facility] Respiratory rate 2019-08-13 19:25:00 18 /min [facility] Body height 2019-08-13 19:25:00 149.9 cm [facility] 2019-08-13 19:25:00 90.719 kg [facility] BMI 2019-08-13 19:25:00 40.40 kg/m2 [facility] Oxygen saturation in Arterial blood by Pulse oximetry 2019-08-13 19:25:00 100 /min [facility] Systolic blood pressure 2019-08-13 19:25:00 123 mm[Hg] [facility] Diastolic blood pressure 2019-08-13 19:25:00 88 mm[Hg] [facility] Heart rate 2019-08-13 19:25:00 78 /min [facility] Body temperature 2019-08-13 19:25:00 36.56 [facility] Respiratory rate 2019-08-13 19:25:00 18 /min [facility] Body height 2019-08-13 19:25:00 149.9 cm [facility] Body weight 2019-08-13 19:25:00 90.719 kg [facility] BMI 2019-08-13 19:25:00 40.40 kg/m2 [facility] Oxygen saturation in Arterial blood by Pulse oximetry 2019-08-13 19:25:00 100 /min [facility] Systolic blood pressure 2019-07-23 00:20:15 120 mm[Hg] [facility] Diastolic blood pressure 2019-07-23 00:20:15 74 mm[Hg] [facility] Heart rate 2019-07-23 00:20:15 82 /min [facility] Respiratory rate 2019-07-23 00:20:15 19 /min [facility] Oxygen saturation in Arterial blood by Pulse oximetry 2019-07-23 00:20:15 100 /min [facility] Body temperature 2019-07-22 19:41:00 36.33 [facility] Body weight 2019-07-22 19:39:00 90.719 kg [facility] BMI 2019-07-22 19:39:00 39.06 kg/m2 [facility] Systolic blood pressure 2019-07-23 00:20:15 120 mm[Hg] [facility] Diastolic blood pressure 2019-07-23 00:20:15 74 mm[Hg] [facility] Heart rate 2019-07-23 00:20:15 82 /min [facility] Respiratory rate 2019-07-23 00:20:15 19 /min [facility] Oxygen saturation in Arterial blood by Pulse oximetry 2019-07-23 00:20:15 100 /min [facility] Body temperature 2019-07-22 19:41:00 36.33 [facility] Body weight 2019-07-22 19:39:00 90.719 kg [facility] BMI 2019-07-22 19:39:00 39.06 kg/m2 [facility] Systolic blood pressure 2019-07-14 03:33:00 127 mm[Hg] [facility] Diastolic blood pressure 2019-07-14 03:33:00 88 mm[Hg] [facility] Heart rate 2019-07-14 03:33:00 79 /min [facility] Respiratory rate 2019-07-14 03:33:00 16 /min [facility] Oxygen saturation in Arterial blood by Pulse oximetry 2019-07-14 03:33:00 97 /min [facility] Body weight 2019-07-14 02:16:00 90.719 kg [facility] BMI 2019-07-14 02:16:00 39.06 kg/m2 [facility] Body temperature 2019-07-14 02:15:00 36.78 [facility] Body weight 2019-07-10 20:39:00 90.719 kg [facility] BMI 2019-07-10 20:39:00 39.06 kg/m2 [facility] Systolic blood pressure 2019-01-21 23:34:00 133 mm[Hg] [facility] Diastolic blood pressure 2019-01-21 23:34:00 78 mm[Hg] [facility] Heart rate 2019-01-21 23:34:00 66 /min [facility] Body temperature 2019-01-21 23:34:00 36.94 [facility] Respiratory rate 2019-01-21 23:34:00 18 /min [facility] Body height 2019-01-21 23:34:00 147.3 cm [facility] Body weight 2019-01-21 23:34:00 68.04 kg [facility] BMI 2019-01-21 23:34:00 31.35 kg/m2 [facility] Oxygen saturation in Arterial blood by Pulse oximetry 2019-01-21 23:34:00 100 /min [facility] Systolic blood pressure 2019-01-21 23:34:00 133 mm[Hg] [facility] Diastolic blood pressure 2019-01-21 23:34:00 78 mm[Hg] [facility] Heart rate 2019-01-21 23:34:00 66 /min [facility] Body temperature 2019-01-21 23:34:00 36.94 [facility] Respiratory rate 2019-01-21 23:34:00 18 /min [facility] Body height 2019-01-21 23:34:00 147.3 cm [facility] Body weight 2019-01-21 23:34:00 68.04 kg [facility] BMI 2019-01-21 23:34:00 31.35 kg/m2 [facility] Oxygen saturation in Arterial blood by Pulse oximetry 2019-01-21 23:34:00 100 /min [facility] Procedures Procedure Date / Time Performed Performing Clinician Source ASSIGNMENT OF BENEFITS 2023-07-23 18:45:32 Docto r Unassigned, [place] [facility] REFERRAL- REQUEST/RESPONSE 2023-06-05 06:01:00 Doctor Unassigned, [place] [facility] REFERRAL- REQUEST/RESPONSE 2023-05-20 06:01:00 Doctor Unassigned, [place] [facility] COMP. METABOLIC PANEL (94085) 2022-09-07 01:38:00 Tayo Byod [facility] CBC WITH DIFF 2022-09-07 01:38:00 [facility] URINALYSIS 2022-09-07 01:38:00 [facility] <3 VW LEFT 2022-09-07 00:56:00 Tayo Boyd [facility] XR FOOT <3 VW LEFT 2022-09-07 00:56:00 Tayo Boyd [facility] CONSENT/REFUSAL FOR DIAGNOSIS AND TREATMENT 2022-09-06 22:08:37 Doctor Unassigned, [place] [facility] CT CERVICAL SPINE WO CONTRAST 2021-10-02 21:53:00 Javed Frank [facility] CT LUMBAR SPINE WO CONTRAST 2021-10-02 21:53:00 Javed Frank [facility] CT THORACIC SPINE WO CONTRAST 2021-10-02 21:53:00 Javed Frank [facility] XR FOREARM 2 VW RIGHT 2021-05-05 20:03:34 Jose Carlos Nunez [facility] XR WRIST 3+ VW RIGHT 2021-05-05 20:03:34 Chino Nunez [facility] NOTICE OF PRIVACY PRACTICES 2021-05-05 19:12:00 Doctor Unassigned, [place] [facility] CONSENT/REFUSAL FOR DIAGNOSIS AND TREATMENT 2021-05-05 19:11:19 Doctor Unassigned, [place] [facility] CONSENT/REFUSAL FOR DIAGNOSIS AND TREATMENT 2019-08-13 19:17:22 Doctor Unassigned, [place] [facility] CT HEAD WO CONTRAST 2019-07-22 22:24:37 Rachel Samayoa [facility] XR CERVICAL SPINE 2 VW 2019-07-22 21:59:59 Samantha Samayoa [facility] CBC WITH DIFFERENTIAL 2019-07-22 21:34:00 Yanira Samayoa [facility] XR CERVICAL SPINE 2 VW 2019-07-14 02:43:00 Ivory Owen [facility] XR ELBOW <3 VW LEFT 2019-07-14 02:43:00 Henry Owen [facility] XR KNEE <3 VW RIGHT 2019-07-14 02:43:00 Henry Owen [facility] XR SHOULDER <2 VW LEFT 2019-07-14 02:43:00 Ivory Owen [facility] Encounters Start Date/Time End Date/Time Encounter Type Admission Type Attending [facility] Care Facility Care Department Encounter ID Source 2022-11-13 13:10:28 Inpatient [facility] [id number] [facility] 2022-11-05 09:23:13 Inpatient [facility] [id number] [facility] 2023-08-01 10:00:49 2023-08-01 10:00:49 Outpatient ANUP HEBERT [id number] Henry Contreras 2023-07-23 14:20:00 2023-07-23 16:57:02 Outpatient R TAPANINDIOLinda INDIO [facility] [id number] [facility] 2023-07-23 14:20:00 2023-07-23 16:57:02 Office Visit [place] see Iron [facility]EN[facility] 1..840.114 350.1.13.10 4.2.7.2.686 [id number] [facility] 2023-07-23 00:00:00 2023-07-23 00:00:00 Orders Only Doctor Unassigned, [place] [facility] 1.840.114 350.1.13.10 4.2.7.2.686 [id number] [facility] 2023-07-04 16:48:23 2023-07-04 16:48:23 Outpatient SFA S[facility] [id number] Henry Contreras 2023-06-18 10:35:36 2023-06-18 10:35:36 Outpatient SFA SFA [id number] Henry Quiles Ben 2023-06-05 00:00:00 2023-06-05 00:00:00 Orders Only Doctor Unassigned, [place] [facility] 1.840.114 350.1.13.10 4.2.7.2.686 [id number] [facility] 2023-06-04 16:00:39 2023-06-04 16:00:39 Outpatient SFA SFA [id number] Henry Quiles Ben 2023-05-24 15:38:52 2023-05-24 15:38:52 Outpatient SFA SFA [id number] Henry Contreras 2023-05-22 00:00:00 2023-05-22 00:00:00 Letter (Out) Neurology [facility] 1..840.114 350.1.13.10 4.2.7.2.686 [id number] [facility] 2023-05-20 00:00:00 2023-05-20 00:00:00 Orders Only Doctor Unassigned, [place] [facility] 1.2.840.114 350.1.13.10 4.2.7.2.686 [id number] [facility] 2023-05-17 15:07:14 2023-05-17 15:07:14 Outpatient [facility] [id number] [address] 2023-03-02 12:27:43 2023-03-02 12:27:43 Outpatient [facility] [id number] Henry Quiles Ben 2023-01-09 17:11:26 2023-01-09 17:11:26 Outpatient [facility] [id number] Henry Quiles Ben 2022-11-04 14:04:00 2022-11-05 11:09:00 Emergency E JESS PAIGE [facility] [id number] [facility] 2022-09-24 12:33:00 2022-09-24 12:51:00 Emergency Heri Snow [facility] 1.2.840.114 350.1.13.10 4.2.7.2.686 [id number] [facility] 2022-09-22 00:00:00 2022-09-22 00:00:00 Nurse Triage Madhavi Mcginnis [facility] 1.2.840.114 350.1.13.10 4.2.7.2.686 [id number] [facility] 2022-09-18 10:09:00 2022-09-19 14:28:00 Inpatient EM MendenhallMarly jack [facility] OBSE [id number] [facility] 2022-09-16 22:50:00 2022-09-17 01:40:00 Emergency EM Asim Jack [facility] FABI [id number] [facility] 2022-09-14 14:52:00 2022-09-15 14:00:00 Inpatient EM Vladimir Forbes [facility] TELE [id number] [facility] 2022-09-13 09:34:00 2022-09-13 13:00:00 Emergency EM Brad Woodall [facility] FABI [id number] [facility] 2022-09-10 23:39:00 2022-09-11 11:28:00 Emergency EM Russel Sewell [facility] [id number] [facility] 2022-09-10 18:57:00 2022-09-10 20:20:00 Emergency Lisa Morfin [facility] 1..840.114 350.1.13.10 4.2.7.2.686 [id number] [facility] 2022-09-10 18:57:00 2022-09-10 20:20:00 Emergency X SANDRITA KEY [facility] ERT [id number] [facility] 2022-09-09 20:45:00 2022-09-09 22:46:00 Emergency X SANDRITA KEY [facility] ERT [id number] [facility] 2022-09-09 20:45:00 2022-09-09 22:46:00 Emergency Sandrita Key [facility] 1..840.114 350.1.13.10 4.2.7.2.686 [id number] [facility] 2022-09-06 18:09:00 2022-09-07 00:51:00 Emergency X TAYO BOYD [facility] ERT [id number] [facility] 2022-09-06 18:09:00 2022-09-07 00:51:00 Emergency Tayo Boyd [facility] 1..840.114 350.1.13.10 4.2.7.2.686 [id number] [facility] 2022-08-21 14:11:33 2022-08-21 14:11:33 Outpatient SFA SFA [id number] Henry Contreras 2022-07-17 15:03:48 2022-07-17 15:03:48 Outpatient [facility] [id number] Henry Contreras 2021-10-02 15:56:00 2021-10-02 19:00:00 Emergency X JAVED FRANK [facility] ERT [id number] [facility] 2021-10-02 15:56:00 2021-10-02 19:00:00 Emergency Javed Frank [facility] 1.2.840.114 350.1.13.10 4.2.7.2.686 [id number] [facility] 2021-05-05 13:22:00 2021-05-05 14:48:00 Emergency DEON ROCHE [facility] ERT [id number] [facility] 2021-05-05 13:22:00 2021-05-05 14:48:00 Emergency Deon Nunez [facility] 1.2.840.114 350.1.13.10 4.2.7.2.686 [id number] [facility] 2021-05-05 00:00:00 2021-05-05 00:00:00 Orders Only Doctor Unassigned, [place] [facility] 1.2.840.114 350.1.13.10 4.2.7.2.686 [id number] [facility] 2019-12-15 17:11:56 2019-12-15 18:04:00 Emergency Kp Gilliland [facility] 1.2.840.114 350.1.13.10 4.2.7.2.686 [id number] [facility] 2019-12-15 17:11:56 2019-12-15 18:04:[address] [facility] 1.2.840.114 350.1.13.10 4.2.7.2.686 [id number] 2019-12-15 17:11:56 2019-12-15 17:11:56 Emergency X Kp GILLILAND [facility] ERT [id number] [facility] 2019-10-25 18:31:31 2019-10-25 19:21:00 Emergency Kristin Miller [facility] 1.2.840.114 350.1.13.10 4.2.7.2.686 [id number] [facility] 2019-10-25 18:31:31 2019-10-25 19:21:00 Emergency Kristin Miller [facility] 1.2.840.114 350.1.13.10 4.2.7.2.686 [id number] 2019-10-25 18:31:31 2019-10-25 18:31:31 Emergency X KRISTIN MILLER [facility] ERT [id number] [facility] 2019-08-13 13:30:00 2019-08-13 14:36:00 Emergency Floridalma Evans [facility] 1.2.840.114 350.1.13.10 4.2.7.2.686 [id number] [facility] 2019-08-13 13:30:00 2019-08-13 14:36:00 Emergency X FLORIDALMA EVANS [facility] ERT [id number] [facility] 2019-08-13 13:30:00 2019-08-13 14:36:00 Emergency Floridalma Evans [facility] 1.2.840.114 350.1.13.10 4.2.7.2.686 [id number] 2019-07-22 13:42:11 2019-07-22 19:02:00 Emergency X LISA MORFIN [facility] ERT [id number] [facility] 2019-07-22 13:42:11 2019-07-22 19:02:00 Emergency Unknown, Attending Lisa Morfin [facility] 1.2.840.114 350.1.13.10 4.2.7.2.686 [id number] [facility] 2019-07-22 13:42:11 2019-07-22 19:02:00 Emergency Unknown, Attending Lisa Morfin [facility] 1.2.840.114 350.1.13.10 4.2.7.2.686 [id number] 2019-07-13 20:17:19 2019-07-13 21:48:00 Emergency X HENRY OWEN [facility] ERT [id number] [facility] 2019-07-13 20:17:19 2019-07-13 21:48:00 Emergency Henry Owen [facility] 1.2.840.114 350.1.13.10 4.2.7.2.686 [id number] [facility] 2019-07-10 14:26:03 2019-07-10 16:33:00 Emergency X JOANNE PAYTONRA [facility] ERT [id number] [facility] 2019-07-10 14:26:03 2019-07-10 16:33:00 Emergency Debbie Payton Holley [facility] 1.2.840.114 350.1.13.10 4.2.7.2.686 [id number] [facility] 2019-07-04 19:09:02 2019-07-04 22:51:00 Emergency X LISA MORFIN [facility] ERT [id number] [facility] 2019-06-30 10:33:08 2019-06-30 13:10:00 Emergency X DEON NUNEZ [facility] ERT [id number] [facility] 2019-05-25 11:58:19 2019-05-25 15:37:00 Emergency X DEON NUNEZ [facility] ERT [id number] [facility] 2019-04-09 22:29:37 2019-04-09 23:28:00 Emergency X FLORIDALMA EVANS [facility] ERT [id number] [facility] 2019-01-21 18:38:01 2019-01-21 19:59:00 Emergency Le Ramirez [facility] 1.2.840.114 350.1.13.10 4.2.7.2.686 [id number] [facility] 2019-01-21 18:38:01 2019-01-21 19:59:00 Emergency Le Ramirez [facility] 1.2.840.114 350.1.13.10 4.2.7.2.686 [id number] Results Test Description Test Time Test Comments Results Result Co mments Source TSH, THIRD [id number] 23:53:27* Test Item Value Reference Range Interpretation Comme nts TSH, THIRD GENERATION (test code = 2821) 11.100 UIU/ML 0.400-4.100 H COMPREHENSIVE METABOLIC [id number] 23:46:03* Test Item Value Reference Range Interpretation Comme nts GLUCOSE (test code = 2217) 97 MG/DL 70-99 BUN (test code = 2208) 7 MG/DL 6-20 CREATININE (test code = 2214) 0.61 MG/DL 0.60-1.30 eGFR (2020 CKD-EPI) (test code = 73941) 110 ML/MIN/1.73 >60 CALC BUN/CREAT (test code = 2235) 11 RATIO 6-28 SODIUM (test code = 223) 132 MEQ/L 133-146 L POTASSIUM (test code = 2228) 4.1 MEQ/L 3.5-5.4 CHLORIDE (test code = 2215) 95 MEQ/L 95-107 CARBON DIOXIDE (test code = 2206) 26 MEQ/L 19-31 CALCIUM (test code = 2209) 9.5 MG/DL 8.5-10.5 PROTEIN, TOTAL (test code = 222) 7.9 G/DL 6.1-8.3 ALBUMIN (test code = 220) 3.8 G/DL 3.5-5.2 CALC GLOBULIN (test code = 2240) 4.1 G/DL 1.9-3.7 H CALC A/G RATIO (test code = 2234) 0.9 RATIO 1.0-2.6 L BILIRUBIN, TOTAL (test code = 2206) 0.2 MG/DL <=1.2 ALKALINE PHOSPHATASE (test code = 2203) 70 U/L 40-125 AST (test code = 2218) 20 U/L 9-40 ALT (test code = 2219) 13 U/L 5-40 CBC W/AUTO DIFF WITH [id number] 08:48:44* Test Item Value Reference Range Interpretation [...] 0.00-0.10 ABS NUCLEATED RBCS (test code = 89307) 0.00 K/UL 0.00-0.11 UNLESS OTHER MONTOYA INDICATED, ALL TESTING PERFORMED AT [facility] [address] [place] [id number] [employer] TRUCK DRIVER: JATIN FELIPE M.D. CLIA NUMBER [id number] [place]. [id number] 01:13:06* Test Item Value Reference Range Interpretation Comme nts TRANSFERRIN (test code = 4936) 315 MG/DL 200-360 UNLESS OTHERWISE INDICATED, ALL TESTING PERFORMED AT [facility] [address] [place] [id number] [employer] TRUCK DRIVER: JATIN FELIPE M.D. CLIA NUMBER [id number] [place]. [id number] LIPID [id number] 01:12:48* Test Item Value Reference Range Interpretation [...] SPECIMENS. FOR MOREINFORMATION, SEE CLIENT ANNOUNCEMENT AT [email or web address] RISK RATIO LDL/HDL (test code = 2238) 1.34 RATIO <3.22 COMPREHENSIVE METABOLIC [id number] 01:12:48* Test Item Value Reference Range Interpretation Comme nts GLUCOSE (test code = 2217) 92 MG/DL 70-99 BUN (test code = 2208) 15 MG/DL 6-20 CREATININE (test code = 2214) 0.65 MG/DL 0.60-1.30 eGFR (2020 CKD-EPI) (test code = 46979) 108 ML/MIN/1.73 >60 CALC BUN/CREAT (test code [...] IRON BINDING CAPACITY AND IRON AND % [id number] 01:12:48* Test Item Value Reference Range Interpretation Comme nts IRON, SERUM (test code = 2221) 51 UG/DL 37-145 UNSATURATED IBC (test code = 48717) 356 UG/DL 112-347 H CALC TOTAL IBC (test code = 2076) 407 UG/DL 250-450 CALC % IRON SAT (test code = 2078) 13 % 20-50 L [id number] 00:59:24* Test Item Value Reference Range Interpretation Comme nts FERRITIN (test code = 2074) 20 NG/ML 13-200 HEMOGLOBIN [id number] 03:08:40* Test Item Value Reference Range Interpretation Comme nts HEMOGLOBIN A1c (test code = 22121) 5.5 % 4.2-5.6 CBC W/AUTO DIFF WITH [id number] 02:29:36* Test Item Value Reference Range Interpretation [...] 0.00-0.10 ABS NUCLEATED RBCS (test code = 26014) 0.00 K/UL 0.00-0.11 DRUGS OF [id number] 05:03:00* Test Item Value Reference Range Interpretation Comme [facility] DRUG SCRN (test code = HDOA) URINE [...] 200 ng/mL Opiates 300 ng/mL URINALYSIS WITH [id number] 04:56:00* Test Item Value Reference Range Interpretation [...] (test code = USPERM) /HPF NONE URINE [id number] 04:53:00* Test Item Value Reference Range Interpretation [...] the FDA and the [employer] [place] (CAP) are more stringent than those required for this test. Therefore, the result should be interpreted with caution and close attention to other clinical and epidemiological data [id number] 16:00:00* Test Item Value Reference Range Interpretation Comme nts SALICYLATE (test code = 94B) <3.0 mg/dL 15.0-30.0 L LIVER [id number] 15:49:00* Test Item Value Reference Range Interpretation [...] code = 31A) <7 IU/L 10-49 L KIUYEDQQWACGM0350-96-28 15:48:00* Test Item Value Reference Range Interpretation [...] to interpret this result as normal/abnormal. 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 Old healed fractures of the distal tibia and fibular noted.Soft tissues: Unremarkable.IMPRESSION: No acute findings.Electronically signed by: Nikko Santiago MD 11/04/2022 3:10 PM CDT 0823SN1ZYRUUKX BEDSIDE [id number] 11:51:00* Test Item Value Reference Range Interpretation Comme nts GLUCOSE BEDSIDE TESTING (karen t code = GLUBED) 79 MG/DL 70-119 N GLUCOSE BEDSIDE [id number] 06:23:00* Test Item Value Reference Range Interpretation Comme nts GLUCOSE BEDSIDE TESTING (karen t code = GLUBED) 80 MG/DL 70-119 N BASIC METABOLIC [id number] 05:12:00* Test Item Value Reference Range Interpretation [...] <2.0 indicates None DetectedPerformed At: [facility] [address] [id number] Kyle L MD Ph:[phone] GLUCOSE BEDSIDE [id number] 19:51:00* Test Item Value Reference Range Interpretation Comme nts GLUCOSE BEDSIDE TESTING (karen t code = GLUBED) 129 MG/DL 70-119 H OSMOLALITY [id number] 17:56:00* Test Item Value Reference Range Interpretation Comme nts OSMOLALITY SERUM (test code = OSMO) 269 mOsm/kg 275-300 L THYROID STIMULATING [id number] 17:56:00* Test Item Value Reference Range Interpretation Comme nts THYROID STIMULATING HORMONE (test code = TSH) 4.190 mc IU/ML 0.340-4.820 N GLUCOSE BEDSIDE [id number] 15:49:00* Test Item Value Reference Range Interpretation [...] code = VALP) 37.5 mcG/ML 50.0-100.0 L [id number] 14:26:00* Test Item Value Reference Range Interpretation Comme nts AMMONIA (test code = AMM) 29.0 mcMOL/L 11.0-32.0 N GLUCOSE BEDSIDE [id number] 11:51:00* Test Item Value Reference Range Interpretation Comme nts GLUCOSE BEDSIDE TESTING (karen t code = GLUBED) 88 MG/DL 70-119 N GLYCOSYLATED HEMOGLOBIN (HA1C)2022-09-18 06:53:00* Test Item Value Reference Range Interpretation Comme nts GLYCOSYLATED HEMOGLOBIN (HA1 C) (test code = GLYHGB) 5.2 % IS-A1C 4.5-5.6 N ESTIMATED AVERAGE [id number] 06:53:00* Test Item Value Reference Range Interpretation [...] to interpret this result as normal/abnormal. UR HMYNQUSMHSGR2487-61-56 21:28:00* Test Item Value Reference Range Interpretation Comme nts UR SODIUM RANDOM (test code = JESUSITA) 93 mmol/L 40-200 N UR POTASSIUM RANDOM (test code = KU) 54.8 mmol/L 25-125 N NO ESTABLISHED NORMAL RANGES FOR RANDOM SPECIMENS. UR CHLORIDE RANDOM (test code = CLU) 164 mmol/L 110-150 H UR OSMOLALITY [id number] 21:28:00* Test Item Value Reference Range Interpretation Comme nts UR OSMOLALITY RANDOM (test c ode = OSMOU) 475 mOsm/kg 100-1400 N CBC W/O [id number] 20:05:00* Test Item Value Reference Range Interpretation [...] = MPV) 9.5 fL 6.8-11.2 N LACTIC [id number] 19:35:00* Test Item Value Reference Range Interpretation Comme nts LACTIC ACID (test code = LACT) 1.0 mmol/L 0.4-2.0 N HCG SERUM [id number] 19:31:00* Test Item Value Reference Range Interpretation Comme nts HCG SERUM QUAL (test code = HCGQL) Negative SCREEN NEG - CT HEAD/BRAIN W/O [id number] 18:59:00 [facility] : 1975 Sex: F Patient Name: BHUMIKA JONES Unit No: [id number] EXAMS: CPT CODE: [id number] CT HEAD/BRAIN W/O CONT 49348 Location: H3 CT head, conducted on 09/17/22 at 1837 hours COMPARISON EXAMS:Head CT exam of 09/17/22 at 00:06 hours TECHNIQUE: CT examination of the brain was performed without contrast on tonsil hospital scanner. Scanning conducted from skull base [...] and signed by: Nati Hunt M.D. CC: Valentnia Samayoa MD Dictated Date/Time: 09/17/2022 (1858) Technologist: VERO Marie(Abner)(CT) CTDI: DLP: Trnscrpt: 09/17/2022 (1859) [email or web address] DENIZ Lugo NAME: ROBERT [address] PHYS: Valentina [place] [address] : 1975 AGE: 47 SEX: F LOC: Ginger.LEOLAED 20 PHONE #: [phone] EXAM DATE: 09/17/2022 STATUS: ADM IN FAX #: [phone] RAD #: D/C DT PAGE 1 Signed Report Patient Name: SILAS JONESPCION Unit No: [id number] EXAMS: CPT CODE: [id number] CT HEAD/BRAIN W/O CONT 29092 (Continued) Orig Print D/T: S: 09/17/2022 (190) DENIZ Lugo NAME: ROBERT[address] PHYS: Valentina [place]son [place] [address] : 1975 AGE: 47 SEX: F LOC: B.ERMED 20 PHONE #: [phone] EXAM DATE: 09/17/2022 STATUS: ADM IN FAX #: [phone] RAD #: D/C DT PAGE 2 Signed ReportURINALYSIS [id number] 16:28:00* Test Item Value Reference Range Interpretation [...] >0 /UL NONE-SQepi DRUGS OF ABUSE SCREEN [id number] 16:28:00* Test Item Value Reference Range Interpretation [...] interpret this result as normal/abnormal. TROP-I HIGH [id number] 16:26:00* Test Item Value Reference Range Interpretation [...] and URLs may vary bymethod. BASIC METABOLIC [id number] 16:25:00* Test Item Value Reference Range Interpretation [...] interpret this result as normal/abnormal. HEPATIC FUNCTION [id number] 16:25:00* Test Item Value Reference Range Interpretation [...] ode = CK) 92 Unit/L 26-192 N [id number] 16:25:00* Test Item Value Reference Range Interpretation Comme nts LIPASE (test code = LIP) 57 Unit/L 114-286 L - CT HEAD/BRAIN W/O [id number] 00:32:00 [facility] BH[facility] JONES : 1975 Sex: F Patient Name: BHUMIKA JONES Unit No: [id number] EXAMS: CPT CODE: [id number] CT HEAD/BRAIN W/O CONT 36177 EXAM: - CT HEAD/BRAIN W/O CONT LOCATION: [...] Reported and signed by: Jess Iglesias MD CC:Dictated Date/Time: 09/17/2022 (31) Technologist: Terry August CTDI: DLP: Trnscrpt: 09/17/2022 (31) [email or web address] DENIZ Lugo NAME: SILAS JONES[address] PHYS: YASMIN - [place]im [place] [address] : 1975 AGE: 47 SEX: F LOC: GregorioERS PHONE #: [phone] EXAM DATE: 09/16/2022 STATUS: REG ER FAX #: [phone] RAD #: D/C DT PAGE 1 Signed Report Patient Name: BHUMIKA JONES Unit No: [id number] EXAMS: CPT CODE: [id number] CT HEAD/BRAIN W/O CONT 70361 (Continued) Orig Print D/T: S: 09/17/2022 (0035) DENIZ Lugo NAME: ROBERT[address] PHYS: YASMIN Santiago [place] [address] : 1975 AGE: 47 SEX: F LOC: B.ERS PHONE #: [phone] EXAM DATE: 09/16/2022STATUS: REG ER FAX #: [phone] RAD #: D/C DT PAGE 2 Signed Report TROP-I HIGH [id number] 00:13:00* Test Item Value Reference Range Interpretation [...] and URLs may vary bymethod. COMPREHENSIVE METABOLIC [id number] 00:11:00* Test Item Value Reference Range Interpretation [...] interpret this result as normal/abnormal. CBC W/AUTO [id number] 23:59:00* Test Item Value Reference Range Interpretation [...] K/mm3 0.0-0.05 N - XR CHEST 1 [id number] 23:34:00 [facility] BHUM[facility] JONES : 1975 [place]: St: PRE -- Patient Name: BHUMIKA JONES Unit No: [id number] EXAMS: CPT CODE: [id number] XR CHEST 1 V 88953 EXAMINATION: - XR CHEST 1 V CLINICAL [...] 09/16/2022 (233)Technologist: Muna Monet Transcribed Date/Time: 09/16/2022 (233) By: [email or web address] Orig Print D/T: S: 09/16/2022 (2149) DENIZ Lugo NAME: BHUMIKA JONES [address] [place] [address] PHYS: IGNACIO.Deirdre - Asim Jack MD, [place] [address] : 1975 AGE: 47 SEX: F LOC: MARCOS PHONE #: [phone] EXAM DATE: 09/16/2022 STATUS: PRE ER FAX #: [phone] RAD NO: DC Dt: PAGE 1 Signed ReportCARBAMAZEPINE (TEGRETOL) 2022-09-15 06:12:00* Test Item Value Reference Range Interpretation Comme nts CARBAMAZEPINE (TEGRETOL) (test code = CARB) 1.5 ug/mL 4.0-12.0 L In conjunction w ith other antiepileptic drugs Therapeutic 4.0 - 8.0 Toxicity 9.0 - 12.0 Carbamazepine alone Therapeutic 8.0 - 12.0 Detection Limit = 2.0 <2.0 indicates None DetectedPerformed At: [facility] [address] [id number] Michael Reeves MD Ph:[phone] VALPROIC ACID (DEPAKENE)2022-09-15 06:12:00* Test Item Value Reference Range Interpretation Comme nts VALPROIC ACID (DEPAKENE) (te st code = VALP) 80.6 mcG/ML 50.0-100.0 N COMPREHENSIVE METABOLIC [id number] 06:00:00* Test Item Value Reference Range Interpretation [...] interpret this result as normal/abnormal. CBC W/AUTO [id number] 05:37:00* Test Item Value Reference Range Interpretation [...] NRBC#) 0.00 K/mm3 0.0-0.05 N GLUCOSE BEDSIDE [id number] 20:03:00* Test Item Value Reference Range Interpretation Comme nts GLUCOSE BEDSIDE TESTING (karen t code = GLUBED) 117 MG/DL 70-119 N DRUGS OF ABUSE SCREEN [id number] 11:42:00* Test Item Value Reference Range Interpretation [...] result as normal/abnormal. - CT HEAD/BRAIN W/O [id number] 11:37:00 [facility] : 1975 Sex: F Patient Name: BHUMIKA JONES Unit No: [id number] EXAMS: CPT CODE: [id number] CT HEAD/BRAIN W/O CONT 27137 EXAMINATION: - CT HEAD/BRAIN W/O CONT COMPARISON: [...] MD; Jim Jaimes MD Dictated Date/Time: 09/14/2022 (9993) Technologist: ASUNCION CASTELLANO CTDI: DLP: Trnscrpt: 09/14/2022 (5969) [email or web address] DENIZ Lugo NAME: BHUMIKA JONES [facility] PHYS: Vladimir Menchaca MD [address] [place] [address] : 1975 AGE: 47 SEX: Etta [place] [address] LOC: NEHA 10 PHONE #: [phone] EXAM DATE: 09/14/2022 STATUS: ADM IN FAX #: [phone] RAD #: D/C DT PAGE 1 Signed Report Patient Name: BHUMIKA JONESUn No: [id number] EXAMS: CPT CODE: [id number] CT HEAD/BRAIN W/O CONT 06171 (Continued) Orig PrintD/T: S: 09/14/2022 (1140) DENIZ Lugo NAME: SILAS JONESPCION [facility] IMAG[facility] PHYS: Vladimir Menchaca MD [address] [place] [address] : 1975 AGE: 47 SEX: Etta [place] [address] LOC: GregorioCASIMIRO 10 PHONE #: [phone] EXAM DATE: 09/14/2022 STATUS: ADM IN FAX #: [phone] RAD #: D/C DT PAGE 2 Signed [...] AVOIDED DUE TO POSSIBLE HEPARINCONTAMINATION HCG SERUM [id number] 06:51:00* Test Item Value Reference Range Interpretation [...] CK) 268 Unit/L 26-192 H CBC W/AUTO [id number] 03:43:00* Test Item Value Reference Range Interpretation [...] = NRBC#) 0.00 K/mm3 0.0-0.05 N URINALYSIS SNJRVXBJ3867-75-98 03:41:00* Test Item Value Reference Range Interpretation [...] RARE /LPF NONE - XR CHEST 2 [id number] 02:06:00 [facility] BHUM[facility]A JONES : 1975 Sex: F FAX: Suleman Carvalho APRNN [phone] [place]: E St: REG Patient Name: BHUMIKA JONES Unit No: [id number] EXAMS: CPT CODE: [id number] XR CHEST 2 V 24757 EXAM: - XR CHEST 2 V HISTORY: [...] [email or web address] Orig Print D/T: S: 09/14/2022 (020) [facility] [place] NAME: [address] PHYS: GISEL - Suleman Carvalho, [place] [address] : 1975 AGE: 47 SEX: F LOC: B.ERS PHONE #: [phone] EXAM DATE: 09/14/2022 STATUS: REG ER FAX #: [phone] RAD NO: DC Dt: PAGE 1 Signed ReportCOMPREHENSIVE METABOLIC [id number] 12:49:00* Test Item Value Reference Range Interpretation [...] used to interpret this result as normal/abnormal. TCNRYOQAF3822-36-95 12:49:00* Test Item Value Reference Range Interpretation Comme nts MAGNESIUM (test code = MAG) 1.7 MG/DL 1.6-2.6 N CBC W/AUTO TQYO8540-64-42 12:36:00* Test Item Value Reference Range Interpretation [...] RARE /LPF NONE DRUGS OF ABUSE SCREEN [id number] 00:33:00* Test Item Value Reference Range Interpretation [...] 300 ng/mL UA RFLX MICR CULT IF XPXQHJCAC9694-68-80 00:30:00* Test Item Value Reference Range Interpretation [...] culture: Suprapubic PainSpecimen Description: CLEAN CATCHBASIC METABOLIC LNZEC2649-18-05 00:18:00* Test Item Value Reference Range Interpretation [...] 8.9 mg/dl 8.0-10.5 N HEPATIC FUNCTION PANEL [id number] 00:18:00* Test Item Value Reference Range Interpretation [...] ALKP) 113 Units/L 50.0-136.0 N HCG SERUM [id number] 00:18:00* Test Item Value Reference Range Interpretation Comme nts HCG SERUM QUAL (test code = HCGQL) NEGATIVE NEGATIVE [id number] 00:18:00* Test Item Value Reference Range Interpretation Comme nts ALCOHOL (test code = ALC) 0.00 gm/dL 0.00-0.00 N ETHYL ALCOHOL VA LUES - INTERPRETATION: 0.050 GM/DL - NOT INTOXICATED 0.100 GM/DL - INTOXICATED 0.350-0.450 GM/DL - SEVERELY INTOXICATED 0.550 GM/DL- FATAL INTOXICATION Coronavirus 2019 nCoV Qsnqded8615-06-11 00:09:00* Test Item Value Reference Range Interpretation Comme nts Coronavirus 2019 nCoV Bedside (test code = [id number]) Negative NEGATIVE Negative results should be treated as presumptive and ifinconsistent with clinical signs and symptoms, or necessaryfor patient management, should be tested with an alternativemolecular assay. Negative results do not preclude OOKX-IoL-0vnsujpkzt and should not be used as the sole basis forpatient management decisions. Negative results should beconsidered in the context of a patient's recent exposures,history, presence of clinical signs and symptoms consistentwith COVID-19. CBC W/AUTO [id number] 23:58:00* Test Item Value Reference Range Interpretation [...] X10 3uL 0.00-0.01 N COMP. METABOLIC PANEL (99729)2022-09-07 02:12:41* Test Item Value Reference Range Interpretation Comme nts NA (test code = 6551417700) 133 mmol/L 135-145 L K (test code = 7604423858) 4.4 mmol/L 3.5-5.0 CL (test code = 3916451397) 102 mmol/L 98-108 CO2 TOTAL (test code = 3465486737) 25 mmol/L 23-31 AGAP (test code = 6195709937) 6 2-16 BUN (test code = 0159407612) 22 mg/dL 7-23 GLUCOSE (test code = 9211008730) 97 mg/dL 70-110 CREATININE (test code = 6894625846) 0.40 mg/dL 0.50-1.04 L TOTAL BILI (test code = 9287678043) 0.3 mg/dL 0.1-1.1 CALCIUM (test code = 7895695503) 8.9 mg/dL 8.6-10.6 T PROTEIN (test code = 2165036842) 7.7 g/dL 6.3-8.2 ALBUMIN (test code = 6337447962) 4.0 g/dL 3.5-5.0 ALK PHOS (test code = 9293539503) 104 U/L 34-122 ALTv (test code = 1742-6) 15 U/L 5-35 AST(SGOT) (test code = 8297609202) 22 U/L 13-40 eGFR (test code = 7354704893) 170.4 mL/min/1.73m2 HANNAH (test code = HANNAH) [...] imaging tests). Lab Interpretation (test code = 01911-7) Abnormal [facility] WITH [id number] 02:01:20* Test Item Value Reference Range Interpretation Comme nts WBC (test code = 6690-2) 6.17 See_Comment [Automated ImmunotEGG] The system which generated this result transmitted reference range: 4.30 - 11.10 10*3/?L. The reference range was not used to interpret this result as normal/abnormal. RBC (test code = 789-8) 3.73 See_Comment L [Automated [employer] CNZZ] The system which generated this result transmitted [...] 32.9 g/dL 31.6-35.1 RDW-SD (test code = 25681-0) 48.1 fL 39.0-49.9 RDW-CV (test code = 788-0) 14.7 % 12.0-15.5 PLT (test code = 777-3) 272 See_Comment [Automated messa ge] The system which generated this result transmitted reference range: 166 - 358 10*3/?L. The reference range was not used to interpret this result as normal/abnormal. MPV (test code = 55596-0) 9.6 fL 9.5-12.9 NRBC/100 WBC (test code = 5247602944) 0.0 See_Comment [Automated Da[employer] ssage] The system which generated this result transmitted reference range: 0.0 - 10.0 /100 WBCs. The reference range was not used to interpret this result as normal/abnormal. NRBC x10^3 (test code = 2340921676) See_Comment [Automated messa ge] The system which generated this result transmitted reference range: 10*3/?L. The reference range was not used to interpret this result as normal/abnormal. GRAN MAT (NEUT) % (test code = 770-8) 42.2 % IMM GRAN % (test code = 8718634261) 0.20 % LYMPH % (test code = 736-9) 38.2 % MONO % (test code = 5905-5) 12.6 % EOS % (test code = 713-8) 5.8 % BASO % (test code = 706-2) 1.0 % GRAN MAT x10^3(ANC) (test code = 7376336416) 2.60 10*3/uL 1.88-7.09 IMM GRAN x10^3 (test code = 6825284440) 0.00-0.06 LYMPH x10^3 (test code = 731-0) 2.36 10*3/uL 1.32-3.29 MONO x10^3 (test code = 742-7) 0.78 10*3/uL 0.33-0.92 EOS x10^3 (test code = 711-2) 0.36 10*3/uL 0.03-0.39 BASO x10^3 (test code = 704-7) 0.06 10*3/uL 0.01-0.07 Lab Interpretation (test code = 70401-2) [facility] FXMGMGTR0593-46-03 22:34:12 Impression: 1. ?No acute intracranial process. [...] cells, paranasal sinuses are within normallimits. [facility], Radiant Results Inft User - 07/22/2019 [...] he patient. Please correlate with history and physicalexamination.[facility]XR CERVICAL SPINE 2 [id number] 22:29:40No acute osseous abnormality. Preliminary Report Dictated [...] reviewed this study and agree with theabove report.[facility]CBC WITH CNMJFGGXCNKC9080-59-92 21:46:00* Test Item Value Reference Range Interpretation [...] 32.2 g/dL 31.6-35.1 RDW-SD (test code = 33570-4) 45.1 fL 39-49.9 RDW-CV (test code = 788-0) 14.6 % 12-15.5 PLT (test code = 777-3) See_Comment L [Automated messa ge] The system which generated this result transmitted reference range: 166 - 358 10*3/?L. The reference range was not used to interpret this result as normal/abnormal. MPV (test code = 22553-4) 9.0 fL 9.5-12.9 L NRBC/100 WBC (test code = 5829222283) See_Comment [Automated Daix[employer] ssage] The system which generated this result transmitted reference range: 0.0 - 10.0 /100 WBCs. The reference range was not used to interpret this result as normal/abnormal. NRBC x10^3 (test code = 8692514304) <0.01 See_Comment [Automated messa ge] The system which generated this result transmitted reference range: 10*3/?L. The reference range was not used to interpret this result as normal/abnormal. GRAN MAT (NEUT) % (test code = 770-8) 51.3 % IMM GRAN % (test code = 0569941659) 0.40 % LYMPH % (test code = 736-9) 24.4 % MONO % (test code = 5905-5) 23.1 % EOS % (test code = 713-8) 0.4 % BASO % (test code = 706-2) 0.4 % GRAN MAT x10^3(ANC) (test code = 1037574786) 2.48 10*3/uL 1.88-7.09 IMM GRAN x10^3 (test code = 9838014768) <0.03 0-0.06 LYMPH x10^3 (test code = 731-0) 1.18 10*3/uL 1.32-3.29 L MONO x10^3 (test code = 742-7) 1.12 10*3/uL 0.33-0.92 H EOS x10^3 (test code = 711-2) <0.03 0.03-0.39 L BASO x10^3 (test code = 704-7) <0.03 0.01-0.07 Lab Interpretation (test code = 31113-5) [facility]normal [facility] 2 XO1359-25-32 03:28:03No acute osseous abnormality. Preliminary Report Dictated [...] this study and agree withthe above report. [facility] HospitalValproic Acid Uoglj4160-99-87 08:03:22* Test Item Value Reference Range Interpretation Comme nts Valproic Acid Level (test co de = Valproic Acid Level) 57.6 ug/mL(g) 50.0-100.0 Hemoglobin [id number] 09:36:00* Test Item Value Reference Range Interpretation Comme nts Hemoglobin A1c (test code = Hemoglobin A1c) 5.0 % 4.8-5.9 Non Diabetic 4.8-5.9%Diabetic <7.0% CT Shoulder w/o Contrast Tixa3907-67-94 16:49:13Patient: BHUMIKA JONES Date/Time01/09/2019 16:14 CDTReason for [...] Adam FSigned (Electronic Signature): 01/09/2019 4:49 pmRPR Xbfkvdayxrp4518-37-70 21:33:20* Test Item Value Reference Range Interpretation [...] 04-23-2020 N XR Shoulder Complete 2+ Views Lxno7895-61-31 15:41:25Patient: BHUMIKA JONES Date/Time01/07/2019 15:25 CDTReason for [...] CSigned (Electronic Signature): 01/07/2019 3:41 pmThyroid Stimulating Qwmvylg6687-08-01 03:07:04* Test Item Value Reference Range Interpretation Comme nts TSH (test code = TSH) 9.650 mIU/mL 0.270-4.200 H Lipid Zncxu2753-61-96 03:07:03* Test Item Value Reference Range Interpretation Comme nts Cholesterol Total (test code = Cholesterol Total) 199 mg/dL 0-200 RISK OF HEART DISEASEPublished by [place] Heart Association Analyte Optimal Borderline [...] is LDL/HDL Ratio=LDL Calc/HDL Chol HCG Qualitative Smpow7613-16-33 02:33:13* Test Item Value Reference Range Interpretation Comme nts HCG, Serum Qual (test code = HCG, Serum Qual) Negative Lot # (test code = Lot #) [id number] N Expiration Dt (test code = Expiration Dt) 2020-04-23 N Neg Control (test code = Neg Control) Negative Pos Control (test code = Pos Control) Positive Internal QC (test code = Int ernal QC) Acceptable Drugs of Abuse Urine 92661-94-50 18:58:11* Test Item Value Reference Range Interpretation [...] = Cannabinoid Screen Ur) Negative Negative Alcohol Xjizw1878-11-83 18:47:34* Test Item Value Reference Range Interpretation Comme nts Ethanol Level (test code = Ethanol Level) <0.00 g/dL 0.00-0.01 Intoxicated 0.08 0 g/dL or more Ethanol Inst (test code = Ethanol Inst) <0 N Comprehensive Metabolic Osgno8619-71-87 18:47:33* Test Item Value Reference Range Interpretation [...] A/G Ratio) 1.0 ratio N Comprehensive Metabolic Hnbyg7757-82-63 18:47:33* Test Item Value Reference Range Interpretation [...] the National Kidney Foundation, http://nkdep.nih.gov Comprehensive Metabolic Cywun7894-68-75 18:47:33* Test Item Value Reference Range Interpretation [...] Kidney Foundation, http://nkdep.nih.gov Complete Blood Count with [id number] 18:15:23* Test Item Value Reference Range Interpretation [...] code = IPF) 0 % N Automated [id number] 18:15:23* Test Item Value Reference Range Interpretation Comme nts Neutro Auto (test code = Sunny tro Auto) 42.1 % 36.0-70.0 Lymph Auto (test code = Lymph Auto) 40.0 % 12.0-44.0 [place] Auto (test code = [place] Auto) 12.2 % 0.0-11.0 H Eos, Auto (test code = Eos, Auto) 4.9 % 0.0-7.0 Basophil Auto (test code = B asophil Auto) 0.6 % 0.0-2.0 Neutro Absolute (test code = Neutro Absolute) 2.2 x10 1.6-7.4 Lymph Absolute (test code = Lymph Absolute) 2.06 x10 .50-4.60 [place] Absolute (test code = M richa Absolute) .63 x10 .00-1.20 Eos Absolute (test code = Eo s Absolute) 0.25 x10 0.00-0.74 Baso Absolute (test code = B aso Absolute) 0.03 x10 0.00-0.21 IG [id number] 18:15:23* Test Item Value Reference Range Interpretation Comme nts IG (test code = IG) 0.2 % 0.0-5.0 IG Abs (test code = IG Abs) 0 x10 N Notes Date/Time Note Provider Source 2022-10-11 12:29:00 [id number]:29:00 [facility])Hospitalist Discharge SummaryREPORT#:[id number] REPORT STATUS: SignedDATE:10/11/22 TIME: 1229 PATIENT: BHUMIKA JONES UNIT #: [id number]#: [id number] [address] AGE: 47 SEX: F ATTEND: [...] patient this morning with the help of drywall stripper and she said that he lives with [...] capillary refill, normal range of motion, no edemaNeuro/SPOOL CLEANER: altered mental status, alert Discharge Instructions PCPDischarge to: Home/Self CareAdditional Discharge Routines: PCP Follow-UpDiet: Resume Home Diet/FeedsActivity: As Tolerated Follow-up AppointmentsPCP follow-up: PCP: No Primary or Family Physician PCP follow up timeframe: In 6 days at 1230 RPT #:[id number] OF REPORTDSDischarge krtbhxj4166-03-00O39:29:00B.IWRL02560317-9054AXKj ailable for patient birkJORUARQICKSWBF5251-68-65P89:30:16 [facility] 2022-09-18 17:27:00 [id number] MtWzQMvYA2ENCYPsNPGCkIAmfElt4 HKww5HyDMI+Oi6NvJSkzvnGf5qK3648-08-83I23:27:00 [facility] ([facility])Electroencephalogram-EEGREPORT#:[id number] REPORT STATUS: SignedDATE:09/18/22 TIME: 1726 PATIENT: BHUMIKA JONES UNIT #: [id number]#: [id number] [address] AGE: 47 SEX: F ATTEND: Meir Mendenhallena [facility] AUTHOR: Nelia Parker MD * ALL edits [...] open eyes (commands were obtained using a optical instrument repairer) with opening the eyes the patient would [...] except with the patientmentioned. at 1736 RPT #:[id number] OF REPORTDIDiagnostic anzxitq6125-62-90X78:27:00B.RAPN41213558-7234LCAx ailable for patient rnjsIFTJXJEGWSOWWF5648-61-78L41:37:11 [facility] 2022-09-18 14:24:00 [id number] TQSUbWFA83CR3hvn1Ixxw3nL6BrjE Jh6sl4+Zi6hPrGNyBJmBGL2MYbz0729-27-63A05:24:00 [facility] ([facility])Neurology Consultation NoteREPORT#:[id number] REPORT STATUS: SignedDATE:09/18/22 TIME: 1423 PATIENT: BHUMIKA JONES UNIT #: [id number]#: [id number] [address] AGE: 47 SEX: F ATTEND: Marly Mendenhall AUTHOR: Nelia Parker MD * ALL edits or amendments must be made on the electronic/computer document * See AddendumHistory of Present Illness HPIRequesting clinician: see consult orderReason for consult:"AMS"Chief complaint:wanting to go home for her familyHPI:47-year-old female Montserratian speaking only who was brought into the [...] [facility]. Reportedly per the patient she did not like the fpc and does not like the food there [...] or seizures prior to herbeing in the fpc. Per the patient she get upset that [...] to her family. Only ambulance records from [facility] for patient who was brought in here [...] available to confirm the history and the fpc location is unknown to contact someone who [...] 116/83 09/18 1127 B/P Mean 94.0 09/18 1127 O2 Delivery Room air 09/18 112 Temp [...] MG 09/18 09/18 09/17 09/17 0553 0553 7156 151Chemistry Hemoglobin A1c (4.5 - 5.6 % IS-A1C) [...] Index/DL) 1 NORMAL <10 MG 09/17 09/17 1516 1510 Chemistry Sodium (133 - 144 mmol/L) 125.0 [...] - 8.0 pH UNITS) 6.5 Ur Specific Beau[place] (1.001 - 1.035 SG) 1.013 Urine Protein [...] in the past ornot. at 1652 RPT #:[id number] OF REPORTBDVvlhwnmypwkg6934-18-30O84:24:00B.PDOC2 [id number] for patient hwjjJWSKNMUYTQYXXM2880-02-02N01:10:17 [facility] 2022-09-18 11:44:00 [id number] LrXJ1qPztJZmFRvLMy2M20iJwTgCo CrJETdh7t/eHRsYzki0PTOiEISg5403-77-67O54:44:00 [facility]ospital[facility] Progress NoteREPORT#:[id number] REPORT STATUS: SignedDATE:09/18/22 TIME: 1144 PATIENT: BHUMIKA JONES UNIT #: [id number]#: [id number] [address] AGE: 47 SEX: F ATTEND: [...] patient this morning with the help of drywall stripper and she said that he lives with [...] capillary refill, normal range of motion, no edemaNeuro/SPOOL CLEANER: altered mental status, alert Diagnosis, Assessment Plan [...] afternoon if remains stable at 1147 RPT #:[id number] OF REPORTPRProgress giqi4174-96-27E23:44:00B.MVNR56011924-2936FYZkump able for patient rtsyEOWZYZWQFHGGIY8093-65-73W10:47:26 [facility] 2022-09-18 01:06:00 [id number] 9UdTgUezyifc3uPC7r7MsUJ7FXEgp ljdD6lXR7BgSj5SZ+pbB8lqA/pD4940-24-50B11:06:00 [facility]ospital[facility] History PhysicalREPORT#:[id number] REPORT STATUS: SignedDATE:09/18/22 TIME: 0106 PATIENT: BHUMIKA JONES UNIT #: [id number]#: [id number] [address] AGE: 47 SEX: F ATTEND: Marshall Orellana [facility] AUTHOR: Nelia Moffett MD * [...] - 8.0 pH UNITS) 6.5 Ur Specific Beau[place] (1.001 - 1.035 SG) 1.013 Urine Protein [...] 09/17 2008 O2 Delivery Room air 09/17 1930 24 hour I O ending at 0700: 09/18 0700 09/17 1900 Intake Total Output Total Balance Patient 72 kg Weight Weight Estimated Measurement Method Patient Weight and BMI Weight (kg): 72.000 BMI: 26.4 General appearance: awakeCardiovascular: regular rate rhythmRespiratory: decreased breath soundsAbdomen: softNeuro/SPOOL CLEANER: altered mental status, alert Diagnosis, Assessment PlanFree Text A P:HyponatremiaDo a work-upContinue Ringer lactate 50 cc/h monitor electrolytes Metabolic encephalopathyNeuro watchTreat underlying condition SchizophreniaContinue home medication once confirmed Seizure disorderContinue home medicationSeizure precaution DVT prophylaxisLovenoxAdvanced directive discussedMedication reviewed and reconciledBefore midnightI will sign off at 6 AM today further management by incoming MD thereafter at 0110 RPT #:[id number] OF REPORTHPHistory and physical gaosqzqysen5195-29-87Q18:06:00B.GWYC81212073-8815 AVAvailable for patient uzxnLCFTZRFRRSHEIS0518-86-06Q32:10:56 [facility] 2022-09-17 14:34:00 [id number] HWz0/Kz9+x9xCAxsKKULMwAiOdMIQ DBhYZjZ731JeIJUWBX7Rq89N7og2925-40-42T87:34:00 [facility] ([facility])EMERGENCY PROVIDER REPORTREPORT#:[id number] REPORT STATUS: SignedDATE:09/17/22 TIME: 1434 PATIENT: BHUMIKA JONES UNIT #: [id number]#: [id number] ROOM/BED: 267-1AGE: 47 SEX: F PCP PHYS: No Primary or Family PhysicianSERVICE AUTHOR: Valentina Samayoa MD * ALL edits or amendments must be made on the electronic/computer document * HPI-General Illness Free Text HPI NotesFree Text HPI Nxpcj33-gpil-szm female presents after possible seizure episode at [facility], will assessment patient is not fully oriented, and cannot provide history of theevents of today when asked multiple times. Additional history limited as the patient is tearful and not fully oriented. I spoke to the patient's sister Lewis Chiang, phone #[phone] by phone, who reports the patient has been missing from home for 8 days. Reports when the patient is medically cleared they can come get the patient. Patient reportedly initially without medicationsat the [facility] PMH: Seizures, schizophrenia. GeneralInitial Greet Date/Time [...] Prov: 09/13/22 DC: 09/14/22 1500 entry level electrical engineer correctionDIVALPROEX DR TEOFILO CALLES) 1,000 MG PO DAILY DIVALPROEX DR TEOFILO CALLES) 1,000 MG PO DAILY #60 TABS Prov: 09/13/22 DC: 09/14/22 1459 entry level electrical engineer correction Reported MedicationsDIVALPROEX ER (DEPAKOTE ER) 1,000 [...] Result Date Time Pulse Ox 100 09/17 153 B/P 120/78 09/17 1530 B/P Mean 92 [...] 1519:[Embedded Image Not Available]Laboratory Tests: 09/17 09/17 151 1519 Chemistry Sodium (133 - 144 mmol/L) [...] - 8.0 pH UNITS) 6.5 Ur Specific [place] (1.001 - 1.035 SG) 1.013 Urine Protein [...] medication refill, drowsy, admitted, ultimately discharged back [facility]]-My EKG interpretation: I directly visualized and interpreted [...] 1633 )( Accepted Date 09/17/22 at 1114RPT #:[id number] OF REPORTEDEmergency department bzbdfm9328-87-37D68:34:00B.CWRP92208131-3544CDSrt ilable for patient ktewCMBQJIROJYTWDD1127-22-19E15:14:25 [facility] 2022-09-17 00:19:00 [id number] fYwT3n3stmk+/9FMdISqWV/sxJXR5 TZwaMBV+SjBBKra+/cQMh8hJ5RO5318-44-98Z30:19:00 [facility] PROVIDER REPORTREPORT#:[id number] REPORT STATUS: SignedDATE:09/17/22 TIME: 0019 PATIENT: BHUMIKA JONES UNIT #: [id number]#: [id number] ROOM/BED:AGE: 47 SEX: F PCP PHYS: No Primary or Family PhysicianSERVICE AUTHOR: Asim Jack MD * ALL edits or amendments must be made on the electronic/computer document * HPI-General Illness GeneralInitial Greet Date/Time 09/16/22 0694 PresentationChief Complaint Anxiety, Not feeling well Free Text HPI NotesFree Text HPI NotesPatient brought in by EMS from [facility] after increasing anxiety and concern for possible seizure activity. She was recently admitted here at [facility] and worked up for possible [...] Prov: 09/13/22 DC: 09/14/22 1500 entry level electrical engineer correctionDIVALPROEX DR (GINA CALLES) 1,000 MG PO DAILY DIVALPROEX DR (GINA CALLES) 1,000 MG PO DAILY #60 TABS Prov: 09/13/22 DC: 09/14/22 1459 entry level electrical engineer correction Reported MedicationsDIVALPROEX ER (DEPAKOTE ER) 1,000 [...] recordsResultsLaboratory Tests 09/16/222333:[Embedded Image Not Available]Laboratory Tests: 09/164 2334 Chemistry [...] % (Auto) (14.1 - 45.4 %) 29.6 [place] % (Auto) (2.5 - 11.7 %) 10.8 Eos % (Auto) (0.0 - 6.2 %) 2.9 Baso % (Auto) (0.0 - 2.1 %) 0.7 Gran # (2.0 - 13.7 k/mm3) 3.12 Lymph # (Auto) (0.6 - 3.8 K/mm3) 1.65 [place] # (Auto) (0.11 - 0.59 K/mm3) 0.60 [...] in the medical decision-making. ECG #1 InterpretationText/Dict Mjoe8030 EKG shows normal sinus rhythm and rate of 64. There is no acute ST elevation to suggest ischemia. Normal axis and intervals without significant hypertrophy or ectopy. Nonspecific T wave changes noted with low voltage. I personally reviewed and interpreted the EKG Re-Evaluation MDM Free Text MDM NotesFree Text MDM NotesPatient presents from local fpc with concern for possible seizure activity. I [...] for discharge. Patient urged to follow-up with [facility] in the next 2 to 3 days [...] )( Discharged to Home Yes )( Time 013 Discharge/Care PlanCounseled Regarding Diagnosis, Lab results, Imaging studies, Need for follow-up,When to return to EDPatient Instructions ED Anxiety Reaction, ED Seizure, Recurrent (Adult)Additional InstructionsPlease follow-up with [facility], [facility], and neurology. Return if any confusion, headache, stiff neck, fever, vomiting, or any other new concerns. Please take all your medications as instructedReferralsProvider Group: [facility] Follow-Up: 2-3 Days Provider Referral: Nelia Parker MD Follow-Up: 2-3 Days Address: [address] [place] [address] [address] [place] [address] Resource Referral: [facility] Follow-Up: 2-3 Days Address: [address] [place] [address] at 0140RPT #:[id number] OF REPORTEDEmergency department jzveww6370-37-69N14:19:00B.OMJY06447642-2117BDTqu ilable for patient yigeUWRTHGICCGCSXW3635-44-13B28:41:10 [facility] 2022-09-15 12:06:00 [id number] ZcyN0BA4udvc9zKFb9zsUlel3b+Qi 5O65erZIvxDuLqvf9ZxP4o8E5266627-05-97H41:06:00 [facility]ieElectroencephalogram-EEGREPORT#:[id number] REPORT STATUS: SignedDATE:09/15/22 TIME: 1206 PATIENT: BHUMIKA JONES UNIT #: [id number]#: [id number] [facility] AGE: 47 SEX: F ATTEND: Vladimir Forbes MDA AUTHOR: Vickie Lewis MD * ALL edits [...] or electrographic seizures recorded. at 1209 RPT #:[id number] OF REPORTDIDiagnostic hrjmrbn3554-51-39Y95:06:00B.EUXP01492301-1632YHPe ailable for patient zixnUBTLZXYGCAEYDV3573-52-39V66:09:33 [facility] 2022-09-15 12:00:00 [id number] C62IWksKJhQXBFsgPNqn/SeeLoMjm DeRh1mVtV1CbyAc5bFW5Zti/pI34393-25-39F15:00:00 [facility]Hospitalist Discharge SummaryREPORT#:[id number] REPORT STATUS: SignedDATE:09/15/22 TIME: 1200 PATIENT: BHUMIKA JONES UNIT #: [id number]#: [id number] [facility] [birth year] AGE: 47 SEX: F ATTEND: Vladimir [...] evaluated for possible seizure episode. 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 Patient denies to have any seizure episodes at home she just ran out of her medications and came to the hospital. Patient otherwise remains hemodynamically stable. However she is too drowsy to be discharged safely back home. I discussed the case with the patient.She wants her medications to be refilled and that she wants to go back to her fpc.I discussed with her about potential seizure episodes in the future use of medications compliance with the medications and further prescriptions. She states that she would management to the fpc. I have requested case management to evaluate [...] initial diagnosis and related differentials with the patient/acute care nurse including RN. All concerns and questions are answered to the best of my abilities based on theavailable data.I have initiated the plan of care based on preliminary diagnosis,requested appopriate consultations with labs/imagings. Patient/acute care nurse verbalizes understanding of the plan of care. [...] timeframe: In 1-2 weeks at 1202 RPT #:[id number] OF REPORTDSDischarge dnskpbd7595-21-63S83:00:00B.VUOP48487263-4428ANTe ailable for patient zsxlZSKTYOSUFBTUMH5802-04-71P62:03:09 [facility] 2022-09-14 16:56:00 [id number] 2DwkK0WWI3+nw9s6P54MePB1T4/2M PcEV9P0i7qgsr+faBvUBL52Q/cI5370-02-28I15:56:00 [facility])Neurology Consultation NoteREPORT#:[id number] REPORT STATUS: SignedDATE:09/14/22 TIME: 1656 PATIENT: BHUMIKA JONES UNIT #: [id number]#: [id number] [facility] [birth year] AGE: 47 SEX: F ATTEND: Jim Jaimes [facility] AUTHOR: Vickie Lewis MD * [...] evaluated for possible seizure episode. 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 Patient denies to have any [...] (SODIUM CHLORIDE 0.9% 1000 ML) 1,000 ML .E57O95Y IV Trazodone HCl (DESYREL) 50 MG BEDTIME PRN PRN PO Sodium Chloride (SODIUM CHLORIDE 0.9% 1000 ML) 1,000 ML .X25D40T IV Carbamazepine (TEGretol) 400 MG BID PO Divalproex Sodium (DEPAKOTE DR) 1,000 MG BID PO (DC) Acetaminophen (TYLENOL) 650 MG Q6H PRN PRN PO Ondansetron HCl (ZOFRAN) 4 MG Q4H PRN PRN IV Ceftriaxone Sodium (ROCEPHIN) 1 GM Q24H IV (CAN) Lactated Ringer's (LACTATED RINGERS) 1,000 ML .A82Q49H IV Ceftriaxone Sodium (ROCEPHIN) 1 GM X1ED [...] (0.88 - 1.13 INR Unit) 0.95 PTT ([place]) (24 - 37.7 SECONDS) 34.6 Laboratory Tests [...] % (Auto) (14.1 - 45.4 %) 33.6 [place] % (Auto) (2.5 - 11.7 %) 13.4 H Eos % (Auto) (0.0 - 6.2 %) 7.4 H Baso % (Auto) (0.0 - 2.1 %) 0.9 Gran # (2.0 - 13.7 k/mm3) 2.61 Lymph # (Auto) (0.6 - 3.8 K/mm3) 1.96 [place] # (Auto) (0.11 - 0.59 K/mm3) 0.78 [...] - 8.0 pH UNITS) 6.0 Ur Specific Beaufort (1.001 - 1.035 SG) 1.032 Urine Protein [...] cardiopulmonary process.Impression By: NadiyaMKM4 - Igor Almonte, [facility] SCAN - CT HEAD/BRAIN W/O CONT [...] deferred to primary team. at 1707 RPT #:[id number] OF REPORTCIDpinslpaxjik3152-18-64M87:56:00B.PDOC2 5694123-3612QSRdjzaszsu for patient cvyzPGCDRMUFHDPRJF4943-64-43B07:07:40 [facility] 14:55:00 MG6162590173p/JIADP4 m9A6VSiH96aQ7CHQawyuLY1xmk0C4 WMBgPFAlEJW4oeVD0GUIHVWWaU11250-93-63K60:55:00 [facility] ([facility])Hospitalist History PhysicalREPORT#:[id number] REPORT STATUS: SignedDATE:09/14/22 TIME: 1455 PATIENT: BHUMIKA JONES UNIT #: [id number]#: [id number] [facility] [birth year] AGE: 47 SEX: F ATTEND: Jim Jaimes MDA AUTHOR: Vladimir Forbes MD * ALL edits [...] evaluated for possible seizure episode. 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 Patient denies to have any [...] % (Auto) (14.1 - 45.4 %) 33.6 [place] % (Auto) (2.5 - 11.7 %) 13.4 H Eos % (Auto) (0.0 - 6.2 %) 7.4 H Baso % (Auto) (0.0 - 2.1 %) 0.9 Gran # (2.0 - 13.7 k/mm3) 2.61 Lymph # (Auto) (0.6 - 3.8 K/mm3) 1.96 [place] # (Auto) (0.11 - 0.59 K/mm3) 0.78 [...] - 8.0 pH UNITS) 6.0 Ur Specific Beau[place] (1.001 - 1.035 SG) 1.032 Urine Protein [...] cardiopulmonary process.Impression By: NadiyaMKM4 - [facility] HEAD/BRAIN W/O CONT 09/14 [...] evaluated for possible seizure episode. 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 Patient denies to have any [...] initial diagnosis and related differentials with the patient/acute care nurse including RN. All concerns and questions are answered to the best of my abilities based on theavailable data.I have initiated the plan of care based on preliminary diagnosis,requested appopriate consultations with labs/imagings. Patient/acute care nurse verbalizes understanding of the plan of care. at 1501 RPT #:[id number] OF REPORTHPHistory and physical sqjhargbmqp3422-95-57X15:55:00B.SYXC19412337-3231 AVAvailable for patient hoicHLBCWHGKZBUDAJ4800-49-07G09:01:57 [facility] 2022-09-14 04:21:00 [id number] pLBGzCERUDwkjy8VqiSos/CRltByW xxtMzDnP7qDAnFbMWBNhV/ZVmz64370-53-99K04:21:00 [facility] ([facility])EMERGENCY PROVIDER REPORTREPORT#:[id number] REPORT STATUS: SignedDATE:09/14/22 TIME: 420 PATIENT: BHUMIKA JONES UNIT #: [id number]#: [id number] [address] 47 SEX: F PCP PHYS: No Primary or Family PhysicianSERVICE AUTHOR: Suleman CarvalhoP * ALL edits or amendments must be [...] cough, congestion, recent illness. 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 [...] plan of care. at 0449 at 0540RPT #:[id number] OF REPORTEDEmergency department jsflqm0080-66-42B38:21:00B.WJBH93058081-0365QZLab ilable for patient wrjqRXDNHQJKEWBHHV5503-76-91O72:49:55 [facility] 2022-09-13 20:34:00 EO7778478353kThhKL3x I04pmhVcICkaxyj8GWVd2iiW0diHl EdXVWQOHwhpvgbHQB5lLkF62hpv5625-27-49R39:34:00 [facility] ([facility])EMERGENCY PROVIDER REPORTREPORT#:[id number] REPORT STATUS: SignedDATE:09/13/22 TIME: 2033 PATIENT: BHUMIKA JONES UNIT #: [id number]#: [id number] ROOM/BED: B.250-WAGE: 47 SEX: F PCP PHYS: No Primary or Family PhysicianSERVICE AUTHOR: Stephanie Bosch * ALL edits or amendments must be made on the electronic/computer document * Provider in Triage - Adult Provider in TriageInitial Greet Date/Time 09/13/222017 Sarita NoteI have greeted and performed a focused [...] (RisperDAL) 3 MG PO DAILY at 1707RPT #:[id number] OF REPORTEDEmergency department thfrvn9092-21-82H74:34:00B.IFFL44243883-7171JJBpx ilable for patient vbhtYHVXYMPVMAZBZI9222-24-24L61:08:12 [facility] 2022-09-13 09:58:00 [id number] YwpXctgKayA8FCOgaeyMBUNoXzck4 nKGzDoUh6AjWKuMiqknLy7hA3iw3343-93-91P49:58:00 [facility] ([facility])EMERGENCY PROVIDER REPORTREPORT#:[id number] REPORT STATUS: SignedDATE:09/13/22 TIME: 957 PATIENT: BHUMIKA JONES UNIT #: [id number]#: [id number] ROOM/BED:AGE: 47 SEX: F PCP PHYS: No Primary or Family PhysicianSERVICE AUTHOR: Brad Woodall DO * ALL edits or amendments must be made on the electronic/computer document * HPI-General Illness Free Text HPI NotesFree Text HPI Zdvqm64-pwqn-ari female past medical history epilepsy out of [...] Result Date Time Pulse Ox 97 09/13 0836 B/P 136/80 09/14 935 B/P Mean 98 [...] - 8.0 pH UNITS) 6.0 Ur Specific Beau[place] (1.001 - 1.035 SG) 1.024 Urine Protein [...] >0 Urine Mucus (NONE /LPF) RARE 09/13 1141 Chemistry Sodium (133 - 144 mmol/L) 129.0 [...] % (Auto) (14.1 - 45.4 %) 34.0 [place] % (Auto) (2.5 - 11.7 %) 10.1 Eos % (Auto) (0.0 - 6.2 %) 2.7 Baso % (Auto) (0.0 - 2.1 %) 0.7 Gran # (2.0 - 13.7 k/mm3) 3.04 Lymph # (Auto) (0.6 - 3.8 K/mm3) 1.98 [place] # (Auto) (0.11 - 0.59 K/mm3) 0.59 [...] 935 Temp 97.9 09/14 935 Pulse 88 03/23 0936 Resp 14 03/23 0936 All vital signs available at the [...] or a call to 911. at 1327RPT #:[id number] OF REPORTGreat [facility] eedxml4466-22-24P78:58:00B.FATI97870075-8686GLXrs ilable for patient vajiYJAJXMPQJDZAMC5703-46-75Q46:28:04 [facility]
--- NOTE | 2023-08-05 10:21 | RAD REPORT ---
EXAM DESCRIPTION: RADChest Single View08/05/2023 9:52 am CLINICAL HISTORY: CHEST PAIN COMPARISON: Chest Single View dated 02/27/2023; Chest Single View dated 08/01/2022; Chest Single View da isabel 01/31/2019; Chest Single View dated 01/29/2019 TECHNIQUE: Portable AP view of the chest. FINDINGS: The lungs are clear. No pneumothorax or effusion. The cardiomediastinal contours are unre markable. IMPRESSION: No acute cardiopulmonary process.
[2023-08-05 11:01] LABS: Magnesium 1.8 mg/dL (1.6-2.4); Potassium 3.9 mEq/L (3.5-5.1); Troponin High Sensitivity 6.7 pg/mL (<58.9)
[2023-08-05 12:31] LABS: Absolute Lymphocytes (CBC) 1.8 K/uL (0.7-4.9); Hematocrit 36.4 % (36.0-45.0); MCV 90.6 fL (80-100); MPV 7.4 fL (7.6-11.3); Platelets 157 thou/uL (152-406); RBC Red Blood Cell Count 4.02 M/uL (3.86-4.86)
--- NOTE | 2023-08-05 13:36 | EDPHYS ---
Physician Documentation [facility] Name: Sidra Hodges Age: 48 yrs Sex: Female : 1975 Arrival Date: 08/05/2023 Time: 08:55 Bed DX1 Private MD: ED Physician Ramiro Piña HPI: 08/05 09:26 This 48 yrs old Female presents to ER via EMS with complaints of chest pain, ms3 anxiety. 09:26 48-year-old female with past medical history of ADD/ADHD, anxiety, bipolar disorder, ms3 chronic pain, hemorrhoids, schizophrenia presents to the emergency department for chest discomfort. Patient states her discomfort is a 10/10 and worse with movement and her anxiety. Patient states she feels "scared.". Historical: - Allergies: 08:59 CARBAMAZEPINE DERIVATIVES; aa5 08:59 Depakote; aa5 08:59 Tegretol; aa5 - PMHx: 08:59 ADD/ADHD; Anxiety; Bipolar disorder; Chronic pain; hemorrhoids; hemorrhoids; aa5 Schizophrenia; Seizures; - Immunization history:: Adult Immunizations unknown. - Social history:: Smoking status: Patient denies any tobacco usage or history of. ROS: 09:26 Constitutional: Negative for fever, and chills. Neck: Negative for injury, pain, and ms3 swelling, Respiratory: Negative for shortness of breath, cough, wheezing, and pleuritic chest pain, Abdomen/GI: Negative for abdominal pain, nausea, vomiting, diarrhea, and constipation, 09:26 Cardiovascular: Positive for chest pain, 09:26 Neuro: Positive for 09:26 Psych: Positive for anxiety, Exam: 09:26 Constitutional: This is a well developed, well nourished patient who is awake, alert, ms3 and in no acute distress. Head/Face: Normocephalic, atraumatic. Neck: Trachea midline, no cervical lymphadenopathy. Supple, full range of motion without nuchal rigidity, or vertebral point tenderness. No Meningismus. Chest/axilla: Normal chest wall appearance and motion. Nontender with no deformity. Cardiovascular: Regular rate and rhythm with a normal S1 and S2. No gallops, murmurs, or rubs. Normal PMI, no JVD. No pulse deficits. Respiratory: Lungs have equal breath sounds bilaterally, clear to auscultation and percussion. No rales, rhonchi or wheezes noted. No increased work of breathing, no retractions or nasal flaring. Abdomen/GI: Soft, non-tender, with normal bowel sounds. No distension or tympany. No guarding or rebound. No evidence of tenderness throughout. Skin: Warm, dry with normal turgor. Normal color with no rashes, no lesions, and no evidence of cellulitis. 11:23 ECG was reviewed by the Attending Physician. ms3 Vital Signs: 08:59 BP 136 / 88; Pulse 59; Resp 18 S; Temp 98(TE); Pulse Ox 98% on R/A; aa5 10:30 BP 134 / 95; Pulse 57; Resp 18; Pulse Ox 100% on R/A; db MDM: 09:07 Patient medically screened. ms3 09:26 Differential diagnosis: abnormal EKG, acute myocardial infarction, anxiety. ms3 16:36 The patient was given aspirin in the Emergency Department. Data reviewed: vital signs, ms3 nurses notes, lab test result(s), EKG, radiologic studies, and as a result, I will discharge patient. I considered the following discharge prescriptions or medication management in the emergency department Medications were administered in the Emergency Department. See MAR. Independent interpretation of the following test(s) in the Emergency Department EKG: See my EKG interpretation above. Historians other than the Patient: EMS: [facility]. Counseling: I had a detailed discussion with the patient and/or guardian regarding. Special discussion: I discussed with the patient/guardian in detail that at this point there is no indication for admission to the hospital. It is understood, however, that if the symptoms persist or worsen the patient needs to return immediately for re-evaluation. 08/05 09:08 Order name: Basic Metabolic Panel; Complete Time: 12:52 ms3 08/05 09:08 Order name: CBC with Diff; Complete Time: 12:52 ms3 08/05 09:08 Order name: Magnesium; Complete Time: 12:52 ms3 08/05 09:08 Order name: Troponin HS; Complete Time: 12:52 ms3 02 09:08 Order name: XRAY Chest (1 view); Complete Time: 10:33 ms3 08/05 09:08 Order name: EKG; Complete Time: 09:08 ms3 02/12 09:08 Order name: Cardiac monitoring; Complete Time: 10:35 ms3 08/05 09:08 Order name: EKG - Nurse/Tech; Complete Time: 10:35 ms3 08/05 09:08 Order name: Labs collected and sent; Complete Time: 10:35 ms3 08/05 09:08 Order name: O2 Per Protocol; Complete Time: 10:35 ms3 08/05 09:08 Order name: O2 Sat Monitoring; Complete Time: 10:35 ms3 08/05 10:47 Order name: Misc. Order: recollect CBC per Mei; Complete Time: 12:57 aa5 EC:23 Rate is 51 beats/min. Rhythm is regular. QRS [place] is Normal. DE interval is normal. QRS ms3 interval is normal. Clinical impression: Sinus bradycardia. Interpreted by me. Reviewed by me. Administered Medications: 10:35 Drug: Aspirin PO Chewable Tablet 324 mg PO once; 81 mg tablets x 4 Route: PO; db Disposition Summary: 08/05/23 13:36 Discharge Ordered Notes: Location: Home ms3 Condition: Stable ms3 Diagnosis - Chest pain, unspecified ms3 Discharge Instructions: - Discharge Summary Sheet ms3 - Nonspecific Chest Pain, Adult ms3 Forms: - Medication Reconciliation Form ms3 - Thank You Letter ms3 - Antibiotic Education ms3 - Prescription Opioid Use ms3 - Patient Portal Instructions ms3 - Leadership Thank You Letter ms3 Signatures: Dispatcher [employer] Maggy Beard, RN RN aa5 Ramiro Piña DO DO ms3 Sabina Hernandez RN RN db
--- NOTE | 2023-08-05 13:36 | ER ---
Nurse's Notes [facility] Name: Sidra Hodges Age: 48 yrs Sex: Female : 1975 Arrival Date: 08/05/2023 Time: 08:55 Bed DX1 Private MD: Diagnosis: Chest pain, unspecified Presentation: 08/05 08:59 Chief complaint: EMS states: c/o anxiety. Pt reports chest pain with "anxiety attacks" aa5 this morning. 08:59 Method Of Arrival: EMS: [facility] aa5 08:59 Acuity: CARMITA 3 aa5 08:59 Coronavirus screen: At this time, the client does not indicate any symptoms associated aa5 with coronavirus-19. Ebola Screen: Patient denies travel to an Ebola-affected area in the 21 days before illness onset. Initial Sepsis Screen: Does the patient meet any 2 criteria? No. Patient's initial sepsis screen is negative. Does the patient have a suspected source of infection? No. Patient's initial sepsis screen is negative. Risk Assessment: Do you want to hurt yourself or someone else? Patient reports no desire to harm self or others. Onset of symptoms was August 05, 2023. Historical: - Allergies: 08:59 CARBAMAZEPINE DERIVATIVES; aa5 08:59 Depakote; aa5 08:59 Tegretol; aa5 - PMHx: 08:59 ADD/ADHD; Anxiety; Bipolar disorder; Chronic pain; hemorrhoids; hemorrhoids; aa5 Schizophrenia; Seizures; - Immunization history:: Adult Immunizations unknown. - Social history:: Smoking status: Patient denies any tobacco usage or history of. Screenin:44 [facility] ED Fall Risk Assessment (Adult) History of falling in the last 3 months, db including since admission No falls in past 3 months (0 pts) Confusion or Disorientation No (0 pts) Intoxicated or Sedated No (0 pts) Impaired Gait No (0 pts) Mobility Assist Device Used No (0 pt) Altered Elimination No (0 pt) Score/Fall Risk Level 0 - 2 = Low Risk Oriented to surroundings, Maintained a safe environment. Abuse screen: Denies threats or abuse. Denies injuries from another. Nutritional screening: No deficits noted. Tuberculosis screening: No symptoms or risk factors identified. Assessment: 09:41 Reassessment: PATIENT IN ROOM. PATIENT TO XRAY WITH RADIOLOGY. db 09:42 Reassessment: Patient appears in no apparent distress at this time. Patient and/or db family updated on plan of care and expected duration. Pain level reassessed. Patient is alert, oriented x 3, equal unlabored respirations, skin warm/dry/pink. General: Appears in no apparent distress. comfortable, Behavior is calm, cooperative. Pain: Complains of pain in chest. Neuro: Level of Consciousness is awake, alert, obeys commands. Respiratory: Airway is patent Respiratory effort is even, unlabored, Respiratory pattern is regular, symmetrical. 11:26 Reassessment: Patient appears in no apparent distress at this time. Patient and/or db family updated on plan of care and expected duration. Pain level reassessed. Patient is alert, oriented x 3, equal unlabored respirations, skin warm/dry/pink. 12:05 Reassessment: PT AMBULATORY TO RESTROOM. db 12:15 Reassessment: PHLEBOTOMY AT PATIENT BEDSIDE. db 13:23 Reassessment: Patient appears in no apparent distress at this time. PT AMBULATORY OUT db OF ER. NO APPARENT DISTRESS. SEEN BY STAFF LEAVING WITH STEADY GATE. Vital Signs: 08:59 BP 136 / 88; Pulse 59; Resp 18 S; Temp 98(TE); Pulse Ox 98% on R/A; aa5 10:30 BP 134 / 95; Pulse 57; Resp 18; Pulse Ox 100% on R/A; db ED Course: 08:56 Patient arrived in ED. im 08:59 Arm band placed on. aa5 09:01 Ramiro Piña DO is Attending Physician. ms3 09:20 Triage completed. aa5 09:41 Sabina Hernandez, RN is Primary Nurse. db 09:44 Patient has correct armband on for positive identification. Call light in reach. Side db rails up X 1. NIBP on. 09:52 XRAY Chest (1 view) In Process Unspecified. EDMS 10:19 Missed attempt(s): 22 gauge in right antecubital area. Bleeding controlled, band aid db applied, catheter tip intact. 10:30 Initial lab(s) drawn, by me, sent to lab. aa5 10:30 Missed attempt(s): 22 gauge in left forearm. Bleeding controlled, band aid applied, aa5 catheter tip intact. 13:35 Provided Education on: HOME CARE. db 13:35 No provider procedures requiring assistance completed. Patient did not have IV access db during this emergency room visit. Administered Medications: 10:35 Drug: Aspirin PO Chewable Tablet 324 mg PO once; 81 mg tablets x 4 Route: PO; db Medication: 11:26 VIS not applicable for this client. db Outcome: 13:25 Condition: stable db 13:25 Condition: Pt left before d/c home paperwork. aa5 13:36 Discharge ordered by . ms3 13:36 Patient left the ED. aa5 Signatures: Dispatcher [employer] EDMS Maggy Beasley, RN RN aa5 Ramiro Piña DO DO ms3 Sabina Hernandez, RN RN db Shonna Phillip im Corrections: (The following items were deleted from the chart) 09:19 09:19 Arm band placed on aa5 aa5 09:24 08:59 Chief complaint: EMS states: c/o anxiety aa5 aa5 13:40 13:40 Patient left the ED. aa5 aa5
[2023-08-05 14:23] VITALS: BP 134/95; TEMP 98; O2SAT 100
== END ==
LOC: ER 08:55
DX: R07.89 Other chest pain (principal)
CPT/HCPCS: 36415; 71045; 80048; 83735; 84484; 85025; 93005

== ENCOUNTER → 2023-08-17 | Emergency (ER) | payer SELFPAY ==
--- OUTSIDE RECORDS SUMMARY | 2023-08-17 16:31 | XMS REPORT | Continuity of Care Document ---
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 [facility] divalproex ER (DEPAKOTE ER) 500 mg 24 hr tablet 10-22 00:58: 10 Yes 500mg Take 500 mg by mouth every 24 (twenty-fo ur) hours. [facility] OXcarbazepi ne (TRILEPTAL) 300 mg tablet 10-22 00:58: 10 Yes Take by mouth. [facility] divalproex ER (DEPAKOTE ER) 500 mg 24 hr tablet 10-22 00:58: 10 Yes 500mg Take 500 mg by mouth every 24 (twenty-fo ur) hours. [facility] OXcarbazepi ne (TRILEPTAL) 300 mg tablet 10-22 00:58: 10 Yes Take by mouth. [facility] divalproex ER (DEPAKOTE ER) 500 mg 24 hr tablet 10-22 00:58: 10 Yes 500mg Take 500 mg by mouth every 24 (twenty-fo ur) hours. [facility] OXcarbazepi ne (TRILEPTAL) 300 mg tablet 10-22 00:58: 10 Yes Take by mouth. [facility] divalproex ER (DEPAKOTE ER) 500 mg 24 hr tablet 10-22 00:58: 10 Yes 500mg Take 500 mg by mouth every 24 (twenty-fo ur) hours. [facility] OXcarbazepi ne (TRILEPTAL) 300 mg tablet 10-22 00:58: 10 Yes Take by mouth. [facility] ARIPiprazol e (ABILIFY) 2 mg tablet 10-21 19:58: 47 Yes 2mg Take 2 mg by mouth daily. [facility] ARIPiprazol e (ABILIFY) 2 mg tablet 10-21 19:58: 47 Yes 2mg Take 2 mg by mouth daily. [facility] ARIPiprazol e (ABILIFY) 2 mg tablet 10-21 19:58: 47 Yes 2mg Take 2 mg by mouth daily. [facility] ARIPiprazol e (ABILIFY) 2 mg tablet 10-21 19:58: 47 Yes 2mg Take 2 mg by mouth daily. [facility] ARIPiprazol e (ABILIFY) 2 mg tablet 10-21 19:58: 47 Yes 2mg Take 2 mg by mouth daily. [facility] ARIPiprazol e (ABILIFY) 2 mg tablet 10-21 19:58: 47 Yes 2mg Take 2 mg by mouth daily. [facility] ARIPiprazol e (ABILIFY) 2 mg tablet 10-21 19:58: 47 Yes 2mg Take 2 mg by mouth daily. [facility] ARIPiprazol e (ABILIFY) 2 mg tablet 10-21 19:58: 47 Yes 2mg Take 2 mg by mouth daily. [facility] ARIPiprazol e (ABILIFY) 2 mg tablet 10-21 19:58: 47 Yes 2mg Take 2 mg by mouth daily. [facility] ARIPiprazol e (ABILIFY) 2 mg tablet 10-21 19:58: 47 Yes 2mg Take 2 mg by mouth daily. [facility] ARIPiprazol e (ABILIFY) 2 mg tablet 10-21 19:58: 47 Yes 2mg Take 2 mg by mouth daily. [facility] ARIPiprazol e (ABILIFY) 2 mg tablet 10-21 19:58: 47 Yes 2mg Take 2 mg by mouth daily. [facility] ARIPiprazol e (ABILIFY) 2 mg tablet 10-21 19:58: 47 Yes 2mg Take 2 mg by mouth daily. [facility] ARIPiprazol e (ABILIFY) 2 mg tablet 10-21 19:58: 47 Yes 2mg Take 2 mg by mouth daily. [facility] ARIPiprazol e (ABILIFY) 2 mg tablet 10-21 19:58: 47 Yes 2mg Take 2 mg by mouth daily. [facility] divalproex ER (DEPAKOTE ER) 500 mg 24 hr tablet 10-21 19:58: 10 Yes 500mg Take 500 mg by mouth every 24 (twenty-fo ur) hours. [facility] OXcarbazepi ne (TRILEPTAL) 300 mg tablet 10-21 19:58: 10 Yes Take by mouth. [facility] divalproex ER (DEPAKOTE ER) 500 mg 24 hr tablet 10-21 19:58: 10 Yes 500mg Take 500 mg by mouth every 24 (twenty-fo ur) hours. [facility] OXcarbazepi ne (TRILEPTAL) 300 mg tablet 10-21 19:58: 10 Yes Take by mouth. [facility] divalproex ER (DEPAKOTE ER) 500 mg 24 hr tablet 10-21 19:58: 10 Yes 500mg Take 500 mg by mouth every 24 (twenty-fo ur) hours. [facility] OXcarbazepi ne (TRILEPTAL) 300 mg tablet 10-21 19:58: 10 Yes Take by mouth. [facility] divalproex ER (DEPAKOTE ER) 500 mg 24 hr tablet 10-21 19:58: 10 Yes 500mg Take 500 mg by mouth every 24 (twenty-fo ur) hours. [facility] OXcarbazepi ne (TRILEPTAL) 300 mg tablet 10-21 19:58: 10 Yes Take by mouth. [facility] divalproex ER (DEPAKOTE ER) 500 mg 24 hr tablet 10-21 19:58: 10 Yes 500mg Take 500 mg by mouth every 24 (twenty-fo ur) hours. [facility] OXcarbazepi ne (TRILEPTAL) 300 mg tablet 10-21 19:58: 10 Yes Take by mouth. [facility] divalproex ER (DEPAKOTE ER) 500 mg 24 hr tablet 10-21 19:58: 10 Yes 500mg Take 500 mg by mouth every 24 (twenty-fo ur) hours. [facility] OXcarbazepi ne (TRILEPTAL) 300 mg tablet 10-21 19:58: 10 Yes Take by mouth. [facility] divalproex ER (DEPAKOTE ER) 500 mg 24 hr tablet 10-21 19:58: 10 Yes 500mg Take 500 mg by mouth every 24 (twenty-fo ur) hours. [facility] OXcarbazepi ne (TRILEPTAL) 300 mg tablet 10-21 19:58: 10 Yes Take by mouth. [facility] divalproex ER (DEPAKOTE ER) 500 mg 24 hr tablet 10-21 19:58: 10 Yes 500mg Take 500 mg by mouth every 24 (twenty-fo ur) hours. [facility] OXcarbazepi ne (TRILEPTAL) 300 mg tablet 10-21 19:58: 10 Yes Take by mouth. [facility] divalproex ER (DEPAKOTE ER) 500 mg 24 hr tablet 10-21 19:58: 10 Yes 500mg Take 500 mg by mouth every 24 (twenty-fo ur) hours. [facility] OXcarbazepi ne (TRILEPTAL) 300 mg tablet 10-21 19:58: 10 Yes Take by mouth. [facility] divalproex ER (DEPAKOTE ER) 500 mg 24 hr tablet 10-21 19:58: 10 Yes 500mg Take 500 mg by mouth every 24 (twenty-fo ur) hours. [facility] OXcarbazepi ne (TRILEPTAL) 300 mg tablet 10-21 19:58: 10 Yes Take by mouth. [facility] divalproex ER (DEPAKOTE ER) 500 mg 24 hr tablet 10-21 19:58: 10 Yes 500mg Take 500 mg by mouth every 24 (twenty-fo ur) hours. [facility] OXcarbazepi ne (TRILEPTAL) 300 mg tablet 10-21 19:58: 10 Yes Take by mouth. [facility] divalproex ER (DEPAKOTE ER) 500 mg 24 hr tablet 10-21 19:58: 10 Yes 500mg Take 500 mg by mouth every 24 (twenty-fo ur) hours. [facility] OXcarbazepi ne (TRILEPTAL) 300 mg tablet 10-21 19:58: 10 Yes Take by mouth. [facility] divalproex ER (DEPAKOTE ER) 500 mg 24 hr tablet 10-21 19:58: 10 Yes 500mg Take 500 mg by mouth every 24 (twenty-fo ur) hours. [facility] OXcarbazepi ne (TRILEPTAL) 300 mg tablet 10-21 19:58: 10 Yes Take by mouth. [facility] divalproex ER (DEPAKOTE ER) 500 mg 24 hr tablet 10-21 19:58: 10 Yes 500mg Take 500 mg by mouth every 24 (twenty-fo ur) hours. [facility] OXcarbazepi ne (TRILEPTAL) 300 mg tablet 10-21 19:58: 10 Yes Take by mouth. [facility] divalproex ER (DEPAKOTE ER) 500 mg 24 hr tablet 10-21 19:58: 10 Yes 500mg Take 500 mg by mouth every 24 (twenty-fo ur) hours. [facility] OXcarbazepi ne (TRILEPTAL) 300 mg tablet 10-21 19:58: 10 Yes Take by mouth. [facility] naproxen (NAPROSYN) 500 mg tablet 10-21 00:00: 00 Yes 500mg Take 1 tablet by mouth 2 (two) times daily with meals. [facility] naproxen (NAPROSYN) 500 mg tablet 10-21 00:00: 00 Yes 500mg Take 1 tablet by mouth 2 (two) times daily with meals. [facility] naproxen (NAPROSYN) 500 mg tablet 10-21 00:00: 00 Yes 500mg Take 1 tablet by mouth 2 (two) times daily with meals. [facility] naproxen (NAPROSYN) 500 mg tablet 10-21 00:00: 00 Yes 500mg Take 1 tablet by mouth 2 (two) times daily with meals. [facility] naproxen (NAPROSYN) 500 mg tablet 10-21 00:00: 00 Yes 500mg Take 1 tablet by mouth 2 (two) times daily with meals. [facility] naproxen (NAPROSYN) 500 mg tablet 10-21 00:00: 00 Yes 500mg Take 1 tablet by mouth 2 (two) times daily with meals. [facility] naproxen (NAPROSYN) 500 mg tablet 10-21 00:00: 00 Yes 500mg Take 1 tablet by mouth 2 (two) times daily with meals. [facility] naproxen (NAPROSYN) 500 mg tablet 10-21 00:00: 00 Yes 500mg Take 1 tablet by mouth 2 (two) times daily with meals. [facility] naproxen (NAPROSYN) 500 mg tablet 10-21 00:00: 00 Yes 500mg Take 1 tablet by mouth 2 (two) times daily with meals. [facility] naproxen (NAPROSYN) 500 mg tablet 10-21 00:00: 00 Yes 500mg Take 1 tablet by mouth 2 (two) times daily with meals. [facility] naproxen (NAPROSYN) 500 mg tablet 10-21 00:00: 00 Yes 500mg Take 1 tablet by mouth 2 (two) times daily with meals. [facility] naproxen (NAPROSYN) 500 mg tablet 10-21 00:00: 00 Yes 500mg Take 1 tablet by mouth 2 (two) times daily with meals. [facility] naproxen (NAPROSYN) 500 mg tablet 10-21 00:00: 00 Yes 500mg Take 1 tablet by mouth 2 (two) times daily with meals. [facility] naproxen (NAPROSYN) 500 mg tablet 10-21 00:00: 00 Yes 500mg Take 1 tablet by mouth 2 (two) times daily with meals. [facility] naproxen (NAPROSYN) 500 mg tablet 10-21 00:00: 00 Yes 500mg Take 1 tablet by mouth 2 (two) times daily with meals. [facility] naproxen (NAPROSYN) 500 mg tablet 10-21 00:00: 00 Yes 500mg Take 1 tablet by mouth 2 (two) times daily with meals. [facility] naproxen (NAPROSYN) 500 mg tablet 10-21 00:00: 00 Yes 500mg Take 1 tablet by mouth 2 (two) times daily with meals. [facility] naproxen (NAPROSYN) 500 mg tablet 10-21 00:00: 00 Yes 500mg Take 1 tablet by mouth 2 (two) times daily with meals. [facility] naproxen (NAPROSYN) 500 mg tablet 10-21 00:00: 00 Yes 500mg Take 1 tablet by mouth 2 (two) times daily with meals. [facility] naproxen (NAPROSYN) 500 mg tablet 10-21 00:00: 00 Yes 500mg Take 1 tablet by mouth 2 (two) times daily with meals. [facility] naproxen (NAPROSYN) 500 mg tablet 10-21 00:00: 00 Yes 500mg Take 1 tablet by mouth 2 (two) times daily with meals. [facility] naproxen (NAPROSYN) 500 mg tablet 4-30 00:00: 00 Yes 500mg Take 1 tablet by mouth 2 (two) times daily with meals. [facility] ibuprofen 600 mg tablet 816 00:00: 00 Yes 600mg Take 1 tablet by mouth every 8 (eight) hours as needed for Pain (scale 4-6). [facility] ibuprofen 600 mg tablet 16 00:00: 00 Yes 600mg Take 1 tablet by mouth every 8 (eight) hours as needed for Pain (scale 4-6). [facility] ibuprofen 600 mg tablet 8 00:00: 00 Yes 600mg Take 1 tablet by mouth every 8 (eight) hours as needed for Pain (scale 4-6). [facility] ibuprofen 600 mg tablet 8 00:00: 00 Yes 600mg Take 1 tablet by mouth every 8 (eight) hours as needed for Pain (scale 4-6). [facility] ibuprofen 600 mg tablet 16 00:00: 00 Yes 600mg Take 1 tablet by mouth every 8 (eight) hours as needed for Pain (scale 4-6). [facility] ibuprofen 600 mg tablet 816 00:00: 00 Yes 600mg Take 1 tablet by mouth every 8 (eight) hours as needed for Pain (scale 4-6). [facility] ibuprofen 600 mg tablet 16 00:00: 00 Yes 600mg Take 1 tablet by mouth every 8 (eight) hours as needed for Pain (scale 4-6). [facility] ibuprofen 600 mg tablet 16 00:00: 00 Yes 600mg Take 1 tablet by mouth every 8 (eight) hours as needed for Pain (scale 4-6). [facility] ibuprofen 600 mg tablet 16 00:00: 00 05-05 00:00 :00 No 600mg Take 1 tablet by mouth every 8 (eight) hours as needed for Pain (scale 4-6). [facility] hydrocortis one 2.5 % rectal cream 710 00:00: 00 Yes Insert into rectum 2 (two) times daily. [facility] hydrocortis one 2.5 % rectal cream 2017-0 710 00:00: 00 Yes Insert into rectum 2 (two) times daily. [facility] hydrocortis one 2.5 % rectal cream 2017-0 710 00:00: 00 Yes Insert into rectum 2 (two) times daily. [facility] hydrocortis one 2.5 % rectal cream 2017-0 710 00:00: 00 Yes Insert into rectum 2 (two) times daily. [facility] hydrocortis one 2.5 % rectal cream 2017-0 710 00:00: 00 Yes Insert into rectum 2 (two) times daily. [facility] hydrocortis one 2.5 % rectal cream 2016-0 710 00:00: 00 Yes Insert into rectum 2 (two) times daily. [facility] hydrocortis one 2.5 % rectal cream 2017-0 710 00:00: 00 Yes Insert into rectum 2 (two) times daily. [facility] hydrocortis one 2.5 % rectal cream 2017-0 710 00:00: 00 Yes Insert into rectum 2 (two) times daily. [facility] hydrocortis one 2.5 % rectal cream 2016-0 710 00:00: 00 Yes Insert into rectum 2 (two) times daily. [facility] hydrocortis one 2.5 % rectal cream 2017-0 710 00:00: 00 Yes Insert into rectum 2 (two) times daily. [facility] hydrocortis one 2.5 % rectal cream 2017-0 710 00:00: 00 Yes Insert into rectum 2 (two) times daily. [facility] hydrocortis one 2.5 % rectal cream 2017-0 710 00:00: 00 Yes Insert into rectum 2 (two) times daily. [facility] hydrocortis one 2.5 % rectal cream 2017-0 7-10 00:00: 00 Yes Insert into rectum 2 (two) times daily. [facility] hydrocortis one 2.5 % rectal cream 20170 710 00:00: 00 Yes Insert into rectum 2 (two) times daily. [facility] hydrocortis one 2.5 % rectal cream 0 710 00:00: 00 Yes Insert into rectum 2 (two) times daily. [facility] hydrocortis one 2.5 % rectal cream 2017-0 710 00:00: 00 Yes Insert into rectum 2 (two) times daily. [facility] 2.5 % rectal cream 0 710 00:00: 00 Yes Insert into rectum 2 (two) times daily. [facility] hydrocortis one 2.5 % rectal cream 0 710 00:00: 00 Yes Insert into rectum 2 (two) times daily. [facility] hydrocortis one 2.5 % rectal cream 0 12-31 00:00: 00 Yes Insert into rectum 2 (two) times daily. [facility] hydrocortis one 2.5 % rectal cream 0 12-31 00:00: 00 Yes Insert into rectum 2 (two) times daily. [facility] hydrocortis one 2.5 % rectal cream 0 710 00:00: 00 Yes Insert into rectum 2 (two) times daily. [facility] hydrocortis one 2.5 % rectal cream 0 710 00:00: 00 Yes Insert into rectum 2 (two) times daily. [facility] hydrocortis one (ANUSOL-HC) 25 mg suppository 07-23 00:00: 00 Yes 25mg Insert 1 Suppositor y into rectum 2 (two) times daily. [facility] hydrocortis one (ANUSOL-HC) 25 mg suppository 07-23 00:00: 00 Yes 25mg Insert 1 Suppositor y into rectum 2 (two) times daily. [facility] hydrocortis one (ANUSOL-HC) 25 mg suppository 07-23 00:00: 00 Yes 25mg Insert 1 Suppositor y into rectum 2 (two) times daily. [facility] hydrocortis one (ANUSOL-HC) 25 mg suppository 07-23 00:00: 00 Yes 25mg Insert 1 Suppositor y into rectum 2 (two) times daily. [facility] hydrocortis one (ANUSOL-HC) 25 mg suppository 07-23 00:00: 00 Yes 25mg Insert 1 Suppositor y into rectum 2 (two) times daily. [facility] hydrocortis one (ANUSOL-HC) 25 mg suppository 07-23 00:00: 00 Yes 25mg Insert 1 Suppositor y into rectum 2 (two) times daily. [facility] hydrocortis one (ANUSOL-HC) 25 mg suppository 07-23 00:00: 00 Yes 25mg Insert 1 Suppositor y into rectum 2 (two) times daily. [facility] hydrocortis one (ANUSOL-HC) 25 mg suppository 07-23 00:00: 00 Yes 25mg Insert 1 Suppositor y into rectum 2 (two) times daily. [facility] hydrocortis one (ANUSOL-HC) 25 mg suppository 07-23 00:00: 00 Yes 25mg Insert 1 Suppositor y into rectum 2 (two) times daily. [facility] hydrocortis one (ANUSOL-HC) 25 mg suppository 07-23 00:00: 00 Yes 25mg Insert 1 Suppositor y into rectum 2 (two) times daily. [facility] hydrocortis one (ANUSOL-HC) 25 mg suppository 07-23 00:00: 00 Yes 25mg Insert 1 Suppositor y into rectum 2 (two) times daily. [facility] hydrocortis one (ANUSOL-HC) 25 mg suppository 07-23 00:00: 00 Yes 25mg Insert 1 Suppositor y into rectum 2 (two) times daily. [facility] hydrocortis one (ANUSOL-HC) 25 mg suppository 07-23 00:00: 00 Yes 25mg Insert 1 Suppositor y into rectum 2 (two) times daily. [facility] hydrocortis one (ANUSOL-HC) 25 mg suppository 07-23 00:00: 00 Yes 25mg Insert 1 Suppositor y into rectum 2 (two) times daily. [facility] hydrocortis one (ANUSOL-HC) 25 mg suppository 07-23 00:00: 00 Yes 25mg Insert 1 Suppositor y into rectum 2 (two) times daily. [facility] hydrocortis one (ANUSOL-HC) 25 mg suppository 07-23 00:00: 00 Yes 25mg Insert 1 Suppositor y into rectum 2 (two) times daily. [facility] hydrocortis one (ANUSOL-HC) 25 mg suppository 07-23 00:00: 00 Yes 25mg Insert 1 Suppositor y into rectum 2 (two) times daily. [facility] hydrocortis one (ANUSOL-HC) 25 mg suppository 07-23 00:00: 00 Yes 25mg Insert 1 Suppositor y into rectum 2 (two) times daily. [facility] hydrocortis one (ANUSOL-HC) 25 mg suppository 07-23 00:00: 00 Yes 25mg Insert 1 Suppositor y into rectum 2 (two) times daily. [facility] hydrocortis one (ANUSOL-HC) 25 mg suppository 07-23 00:00: 00 Yes 25mg Insert 1 Suppositor y into rectum 2 (two) times daily. [facility] hydrocortis one (ANUSOL-HC) 25 mg suppository 07-23 00:00: 00 Yes 25mg Insert 1 Suppositor y into rectum 2 (two) times daily. [facility] hydrocortis one (ANUSOL-HC) 25 mg suppository 07-23 00:00: 00 Yes 25mg Insert 1 Suppositor y into rectum 2 (two) times daily. [facility] Vital Signs Vital Name Observation Time Observation Value Comments S ource Body height 2023-07-23 20:19:00 152.4 cm [facility] Body weight 2023-07-23 20:19:00 77.837 kg [facility] BMI 2023-07-23 20:19:00 33.51 kg/m2 [facility] Height 2022-11-04 14:04:00 149.86 CM Weight 2022-11-04 14:04:00 73.02 KG Systolic blood pressure 2022-09-24 17:32:00 130 mm[Hg] [facility] Diastolic blood pressure 2022-09-24 17:32:00 85 mm[Hg] [facility] Heart rate 2022-09-24 17:32:00 64 [facility] Body temperature 2022-09-24 17:32:00 36.83 [facility] Respiratory rate 2022-09-24 17:32:00 18 /min [facility] Body weight 2022-09-24 17:32:00 74.844 kg [facility] BMI 2022-09-24 17:32:00 33.33 kg/m2 [facility] Oxygen saturation in Arterial blood by Pulse oximetry 2022-09-24 17:32:00 99 /min [facility] Systolic blood pressure 2022-09-10 23:55:00 111 mm[Hg] [facility] Diastolic blood pressure 2022-09-10 23:55:00 84 mm[Hg] [facility] Heart rate 2022-09-10 23:55:00 105 /[facility] 2022-09-10 23:55:00 37.33 [facility] Respiratory rate 2022-09-10 23:55:00 19 /min [facility] Systolic blood pressure 2022-09-10 01:44:00 126 mm[Hg] [facility] Diastolic blood pressure 2022-09-10 01:44:00 81 mm[Hg] [facility] Heart rate 2022-09-10 01:44:00 78 /min [facility] Body temperature 2022-09-10 01:44:00 36.56 [facility] Respiratory rate 2022-09-10 01:44:00 16 /min [facility] Body weight 2022-09-10 01:44:00 79.379 kg [facility] BMI 2022-09-10 01:44:00 35.35 kg/m2 [facility] Oxygen saturation in Arterial blood by Pulse oximetry 2022-09-10 01:44:00 100 /min [facility] Systolic blood pressure 2022-09-07 05:37:00 119 mm[Hg] [facility] Diastolic blood pressure 2022-09-07 05:37:00 67 mm[Hg] [facility] [facility] Heart rate 2022-09-07 05:37:00 79 /min [facility] Respiratory rate 2022-09-07 05:37:00 16 /min [facility] Oxygen saturation in Arterial blood by Pulse oximetry 2022-09-07 05:37:00 98 /min [facility] Body temperature 2022-09-06 23:05:00 36.78 O[facility] Body weight 2022-09-06 23:05:00 79.379 kg [facility] BMI 2022-09-06 23:05:00 35.35 kg/m2 [facility] Systolic blood pressure 2021-10-02 20:55:00 111 mm[Hg] [facility] Diastolic blood pressure 2021-10-02 20:55:00 70 mm[Hg] [facility] Heart rate 2021-10-02 20:55:00 79 /min [facility] Body temperature 2021-10-02 20:55:00 36.61 Oma [facility] Respiratory rate 2021-10-02 20:55:00 18 /min [facility] Body height 2021-10-02 20:55:00 149.9 cm [facility] Body weight 2021-10-02 20:55:00 79.379 kg [facility] BMI 2021-10-02 20:55:00 35.35 kg/m2 [facility] Oxygen saturation in Arterial blood by Pulse oximetry 2021-10-02 20:55:00 100 /min [facility] Systolic blood pressure 2021-05-05 19:20:00 102 mm[Hg] [facility] Diastolic blood pressure 2021-05-05 19:20:00 48 mm[Hg] [facility] Heart rate 2021-05-05 19:20:00 68 /min [facility] Body temperature 2021-05-05 19:20:00 36.94 O[facility] Respiratory rate 2021-05-05 19:20:00 18 /min [facility] Body weight 2021-05-05 19:20:00 79.379 kg [facility] BMI 2021-05-05 19:20:00 35.35 kg/m2 [facility] Oxygen saturation in Arterial blood by Pulse oximetry 2021-05-05 19:20:00 99 /min [facility] Systolic blood pressure 2019-12-15 22:12:00 138 mm[Hg] [facility] Diastolic blood pressure 2019-12-15 22:12:00 100 mm[Hg] [facility] Heart rate 2019-12-15 22:12:00 77 /min [facility] Body temperature 2019-12-15 22:12:00 37.06 O[facility] Respiratory rate 2019-12-15 22:12:00 20 /min [facility] Body weight 2019-12-15 22:12:00 79.379 kg [facility] BMI 2019-12-15 22:12:00 35.35 kg/m2 [facility] Oxygen saturation in Arterial blood by Pulse oximetry 2019-12-15 22:12:00 100 /min [facility] Systolic blood pressure 2019-12-15 22:12:00 138 mm[Hg] [facility] Diastolic blood pressure 2019-12-15 22:12:00 100 mm[Hg] [facility] Heart rate 2019-12-15 22:12:00 77 /min [facility] Body temperature 2019-12-15 22:12:00 37.06 [facility] Respiratory rate 2019-12-15 22:12:00 20 /min [facility] Body weight 2019-12-15 22:12:00 79.379 kg [facility] BMI 2019-12-15 22:12:00 35.35 kg/m2 [facility] Oxygen saturation in Arterial blood by Pulse oximetry 2019-12-15 22:12:00 100 /min [facility] Respiratory rate 2019-10-25 23:43:00 18 /min [facility] Body weight 2019-10-25 23:43:00 83.915 kg [facility] BMI 2019-10-25 23:43:00 37.37 kg/m2 [facility] Respiratory rate 2019-10-25 23:43:00 18 /min [facility] Body weight 2019-10-25 23:43:00 83.915 kg [facility] BMI 2019-10-25 23:43:00 37.37 kg/m2 [facility] Systolic blood pressure 2019-08-13 19:25:00 123 mm[Hg] [facility] Diastolic blood pressure 2019-08-13 19:25:00 88 mm[Hg] [facility] Heart rate 2019-08-13 19:25:00 78 /min [facility] 2019-08-13 19:25:00 36.56 [facility] Respiratory rate 2019-08-13 19:25:00 18 /min [facility] Body height 2019-08-13 19:25:00 149.9 cm [facility] Body weight 2019-08-13 19:25:00 90.719 kg [facility] BMI 2019-08-13 19:25:00 40.40 kg/m2 [facility] Oxygen saturation in Arterial blood by Pulse oximetry 2019-08-13 19:25:00 100 /min [facility] Systolic blood pressure 2019-08-13 19:25:00 123 mm[Hg] [facility] Diastolic blood pressure 2019-08-13 19:25:00 88 mm[Hg] [facility] Heart rate 2019-08-13 19:25:00 78 /min [facility] Body temperature 2019-08-13 19:25:00 36.56 [facility] Respiratory rate 2019-08-13 19:25:00 18 /min [facility] Body height 2019-08-13 19:25:00 149.9 cm [facility] Body weight 2019-08-13 19:25:00 90.719 kg [facility] BMI 2019-08-13 19:25:00 40.40 kg/m2 [facility] Oxygen saturation in Arterial blood by Pulse oximetry 2019-08-13 19:25:00 100 /min [facility] Systolic blood pressure 2019-07-23 00:20:15 120 mm[Hg] [facility] Diastolic blood pressure 2019-07-23 00:20:15 74 mm[Hg] [facility] Heart rate 2019-07-23 00:20:15 82 /min [facility] Respiratory rate 2019-07-23 00:20:15 19 /min [facility] Oxygen saturation in Arterial blood by Pulse oximetry 2019-07-23 00:20:15 100 /min [facility] Body temperature 2019-07-22 19:41:00 36.33 O[facility] Body weight 2019-07-22 19:39:00 90.719 kg [facility] BMI 2019-07-22 19:39:00 39.06 kg/m2 [facility] Systolic blood pressure 2019-07-23 00:20:15 120 mm[Hg] [facility] Diastolic blood pressure 2019-07-23 00:20:15 74 mm[Hg] [facility] Heart rate 2019-07-23 00:20:15 82 /min [facility] Respiratory rate 2019-07-23 00:20:15 19 /min [facility] Oxygen saturation in Arterial blood by Pulse oximetry 2019-07-23 00:20:15 100 /min [facility] Body temperature 2019-07-22 19:41:00 36.33 Oma [facility] Body weight 2019-07-22 19:39:00 90.719 kg [facility] BMI 2019-07-22 19:39:00 39.06 kg/m2 [facility] Systolic blood pressure 2019-07-14 03:33:00 127 mm[Hg] [facility] Diastolic blood pressure 2019-07-14 03:33:00 88 mm[Hg] [facility] Heart rate 2019-07-14 03:33:00 79 /min [facility] Respiratory rate 2019-07-14 03:33:00 16 /min [facility] Oxygen saturation in Arterial blood by Pulse oximetry 2019-07-14 03:33:00 97 /min [facility] Body weight 2019-07-14 02:16:00 90.719 kg [facility] BMI 2019-07-14 02:16:00 39.06 kg/m2 [facility] Body temperature 2019-07-14 02:15:00 36.78 Oma [facility] Body weight 2019-07-10 20:39:00 90.719 kg [facility] BMI 2019-07-10 20:39:00 39.06 kg/m2 [facility] Systolic blood pressure 2019-01-21 23:34:00 133 mm[Hg] [facility] Diastolic blood pressure 2019-01-21 23:34:00 78 mm[Hg] [facility] Heart rate 2019-01-21 23:34:00 66 /min [facility] Body temperature 2019-01-21 23:34:00 36.94 Oma [facility] Respiratory rate 2019-01-21 23:34:00 18 /min [facility] Body height 2019-01-21 23:34:00 147.3 cm [facility] Body weight 2019-01-21 23:34:00 68.04 kg [facility] BMI 2019-01-21 23:34:00 31.35 kg/m2 [facility] Oxygen saturation in Arterial blood by Pulse oximetry 2019-01-21 23:34:00 100 /min [facility] Systolic blood pressure 2019-01-21 23:34:00 133 mm[Hg] [facility] Diastolic blood pressure 2019-01-21 23:34:00 78 mm[Hg] [facility] Heart rate 2019-01-21 23:34:00 66 /min [facility] Body temperature 2019-01-21 23:34:00 36.94 Oma [facility] Respiratory rate 2019-01-21 23:34:00 18 /min [facility] Body height 2019-01-21 23:34:00 147.3 cm [facility] Body weight 2019-01-21 23:34:00 68.04 kg [facility] BMI 2019-01-21 23:34:00 31.35 kg/m2 [facility] Oxygen saturation in Arterial blood by Pulse oximetry 2019-01-21 23:34:00 100 /min [facility] Procedures Procedure Date / Time Performed Performing Clinician Source ASSIGNMENT OF BENEFITS 2023-07-23 18:45:32 Docto r Unassigned, Agar [facility] REFERRAL- REQUEST/RESPONSE 2023-06-05 06:01:00 Doctor Unassigned, Agar [facility] REFERRAL- REQUEST/RESPONSE 2023-05-20 06:01:00 Doctor Unassigned, Agar [facility] COMP. METABOLIC PANEL (80248) 2022-09-07 01:38:00 Tayo Boyd [facility] CBC WITH DIFF 2022-09-07 01:38:00 [facility] URINALYSIS 2022-09-07 01:38:00 Tayo Boyd [facility] XR ANKLE <3 VW LEFT 2022-09-07 00:56:00 Tayo Boyd [facility] XR FOOT <3 VW LEFT 2022-09-07 00:56:00 Tayo Boyd [facility] CONSENT/REFUSAL FOR DIAGNOSIS AND TREATMENT 2022-09-06 22:08:37 Doctor Unassigned, Agar [facility] CT CERVICAL SPINE WO CONTRAST 2021-10-02 21:53:00 Javed Frank [facility] CT LUMBAR SPINE WO CONTRAST 2021-10-02 21:53:00 Javed Frank [facility] CT THORACIC SPINE WO CONTRAST 2021-10-02 21:53:00 Javed Frank [facility] XR FOREARM 2 VW RIGHT 2021-05-05 20:03:34 Jose Carlos Nunez [facility] XR WRIST 3+ VW RIGHT 2021-05-05 20:03:34 Chino Nunez [facility] NOTICE OF PRIVACY PRACTICES 2021-05-05 19:12:00 Doctor Unassigned, Agar [facility] CONSENT/REFUSAL FOR DIAGNOSIS AND TREATMENT 2021-05-05 19:11:19 Doctor Unassigned, Agar [facility] CONSENT/REFUSAL FOR DIAGNOSIS AND TREATMENT 2019-08-13 19:17:22 Doctor Unassigned, Agar [facility] CT HEAD WO CONTRAST 2019-07-22 22:24:37 Rachel Samayoa [facility] XR CERVICAL SPINE 2 VW 2019-07-22 21:59:59 Samantha Samayoa [facility] CBC WITH DIFFERENTIAL 2019-07-22 21:34:00 Yanira Smaayoa [facility] XR CERVICAL SPINE 2 VW 2019-07-14 02:43:00 Ivory Owen [facility] XR ELBOW <3 VW LEFT 2019-07-14 02:43:00 Henry Owen [facility] XR KNEE <3 VW RIGHT 2019-07-14 02:43:00 Henry Owen [facility] XR SHOULDER <2 VW LEFT 2019-07-14 02:43:00 Ivory Owen [facility] Encounters Start Date/Time End Date/Time Encounter Type Admission Type Attending [facility] Care Facility Care Department Encounter ID Source 2022-11-13 13:10:28 Inpatient CATHIE [facility] [id number] [facility] 2022-11-05 09:23:13 [facility] [id number] [facility] 2023-08-01 10:00:49 2023-08-01 10:00:49 Outpatient ANUP HEBERT [id number] Henry Contreras 2023-07-23 14:20:00 2023-07-23 16:57:02 Outpatient INDIO OLIVEROS [facility] [id number] [facility] 2023-07-23 14:20:00 2023-07-23 16:57:02 Office Visit Indio Phelan [facility] 1..840.114 350.1.13.10 4.2.7.2.686 [id number] [facility] 2023-07-23 00:00:00 2023-07-23 00:00:00 Orders Only Doctor Unassigned, Agar [facility] 1..840.114 350.1.13.10 4.2.7.2.686 [id number] [facility] 2023-07-04 16:48:23 2023-07-04 16:48:23 Outpatient [facility] [id number] Henry Quiles Ben 2023-06-18 10:35:36 2023-06-18 10:35:36 Outpatient [facility] [id number] Henry Quiles Ben 2023-06-05 00:00:00 2023-06-05 00:00:00 Orders Only Doctor Unassigned, Agar [facility] 1..840.114 350.1.13.10 4.2.7.2.686 [id number] [facility] 2023-06-04 16:00:39 2023-06-04 16:00:39 Outpatient [facility] [id number] Henry Quiles Ben 2023-05-24 15:38:52 2023-05-24 15:38:52 Outpatient [facility] [id number] Henry Quiles Ben 2023-05-22 00:00:00 2023-05-22 00:00:00 Letter (Out) Neurology [facility] 1..840.114 350.1.13.10 4.2.7.2.686 [id number] [facility] 2023-05-20 00:00:00 2023-05-20 00:00:00 Orders Only Doctor Unassigned, Agar [facility] 1.2.840.114 350.1.13.10 4.2.7.2.686 [id number] [facility] 2023-05-17 15:07:14 2023-05-17 15:07:14 Outpatient [facility] [id number] Henry Quiles Ben 2023-03-02 12:27:43 2023-03-02 12:27:43 Outpatient [facility] [id number] Henry Contreras 2023-01-09 17:11:26 2023-01-09 17:11:26 Outpatient [facility] [id number] Henry Quiles Ben 2022-11-04 14:04:00 2022-11-05 11:09:00 Emergency [facility]ESS [facility] [id number] [facility] 2022-09-24 12:33:00 2022-09-24 12:51:00 Emergency Heri Snow [facility] 1.2.840.114 350.1.13.10 4.2.7.2.686 [id number] [facility] 2022-09-22 00:00:00 2022-09-22 00:00:00 Nurse Triage Madhavi Mcginnis [facility] 1.2.840.114 350.1.13.10 4.2.7.2.686 [id number] [facility] 2022-09-18 10:09:00 2022-09-19 14:28:00 Inpatient EM Marly Mendenhall [facility] [id number] [facility] 2022-09-16 22:50:00 2022-09-17 01:40:00 Emergency EM Guero, Asim [facility] FABI [id number] [facility] 2022-09-14 14:52:00 2022-09-15 14:00:00 Inpatient EM Vladimir Forbes [facility] TELE [id number] [facility] 2022-09-13 09:34:00 2022-09-13 13:00:00 Emergency EM Brad Woodall [facility] [id number] [facility] 2022-09-10 23:39:00 2022-09-11 11:28:00 Emergency EM Russel Sewell [facility] [id number] [facility] 2022-09-10 18:57:00 2022-09-10 20:20:00 Emergency Lisa Morfin [facility] 1..840.114 350.1.13.10 4.2.7.2.686 [id number] [facility] 2022-09-10 18:57:00 2022-09-10 20:20:00 Emergency Arron SANDRITA KEY [facility] ERT [id number] [facility] 2022-09-09 20:45:00 2022-09-09 22:46:00 Emergency X SANDRITA KEY [facility] ERT [id number] [facility] 2022-09-09 20:45:00 2022-09-09 22:46:00 Emergency Sandrita [facility] 1..840.114 350.1.13.10 4.2.7.2.686 [id number] [facility] 2022-09-06 18:09:00 2022-09-07 00:51:00 Emergency X TAYO BOYD [facility] ERT [id number] [facility] 2022-09-06 18:09:00 2022-09-07 00:51:00 Emergency Tayo Boyd [facility] 1.2.840.114 350.1.13.10 4.2.7.2.686 [id number] [facility] 2022-08-21 14:11:33 2022-08-21 14:11:33 Outpatient [facility] [id number] Henry Contreras 2022-07-17 15:03:48 2022-07-17 15:03:48 Outpatient [facility] [id number] Henry Contreras 2021-10-02 15:56:00 2021-10-02 19:00:00 Emergency X JAVED FRANK [facility] ERT [id number] [facility] 2021-10-02 15:56:00 2021-10-02 19:00:00 Emergency Javed Frank [facility] 1.2.840.114 350.1.13.10 4.2.7.2.686 [id number] [facility] 2021-05-05 13:22:00 2021-05-05 14:48:00 Emergency DEON ROCHE [facility] ERT [id number] [facility] 2021-05-05 13:22:00 2021-05-05 14:48:00 Emergency Deon Nunez [facility] 1.2.840.114 350.1.13.10 4.2.7.2.686 [id number] [facility] 2021-05-05 00:00:00 2021-05-05 00:00:00 Orders Only Doctor Unassigned, Agar [facility] 1.2.840.114 350.1.13.10 4.2.7.2.686 [id number] [facility] 2019-12-15 17:11:56 2019-12-15 18:04:00 [facility] 1.2.840.114 350.1.13.10 4.2.7.2.686 [id number] 2019-12-15 17:11:56 2019-12-15 18:04:00 Emergency [facility] 1.2.840.114 350.1.13.10 4.2.7.2.686 [id number] [facility] 2019-12-15 17:11:56 2019-12-15 17:11:56 Emergency X Kp PERAZA [facility] ERT [id number] [facility] 2019-10-25 18:31:31 2019-10-25 19:21:00 Emergency Kristin Miller [facility] 1.2.840.114 350.1.13.10 4.2.7.2.686 [id number] 2019-10-25 18:31:31 2019-10-25 19:21:00 Emergency Kristin Miller [facility] 1.2.840.114 350.1.13.10 4.2.7.2.686 [id number] [facility] 2019-10-25 18:31:31 2019-10-25 18:31:31 Emergency X KRISTIN MILLER [facility] ERT [id number] [facility] 2019-08-13 13:30:00 2019-08-13 14:36:00 Emergency Floridalma Evans [facility] 1.2.840.114 350.1.13.10 4.2.7.2.686 [id number] 2019-08-13 13:30:00 2019-08-13 14:36:00 Emergency Floridalma Evans [facility] 1.2.840.114 350.1.13.10 4.2.7.2.686 [id number] [facility] 2019-08-13 13:30:00 2019-08-13 14:36:00 Emergency X FLORIDALMA EVANS [facility] ERT [id number] [facility] 2019-07-22 13:42:11 2019-07-22 19:02:00 Emergency Unknown, Attending Lisa Morfin [facility] 1.2.840.114 350.1.13.10 4.2.7.2.686 [id number] 2019-07-22 13:42:11 2019-07-22 19:02:00 Emergency X LISA MORFIN [facility] ERT [id number] [facility] 2019-07-22 13:42:11 2019-07-22 19:02:00 Emergency Unknown, Attending Lisa Morfin [facility] 1.2.840.114 350.1.13.10 4.2.7.2.686 [id number] [facility] 2019-07-13 20:17:19 2019-07-13 21:48:00 Emergency X HENRY OWEN [facility] ERT [id number] [facility] 2019-07-13 20:17:19 2019-07-13 21:48:00 Emergency Trena Henry [facility] 1.2.840.114 350.1.13.10 4.2.7.2.686 [id number] [facility] 2019-07-10 14:26:03 2019-07-10 16:33:00 Emergency X DEBBIE PAYTON [facility] ERT [id number] [facility] 2019-07-10 14:26:03 2019-07-10 16:33:00 Emergency Debbie Payton [facility] 1.2.840.114 350.1.13.10 4.2.7.2.686 [id number] [facility] 2019-07-04 19:09:02 2019-07-04 22:51:00 Emergency X LISA MORFIN [facility] ERT [id number] [facility] 2019-06-30 10:33:08 2019-06-30 13:10:00 Emergency X DEON NUNEZ [facility] ERT [id number] [facility] 2019-05-25 11:58:19 2019-05-25 15:37:00 Emergency X DEON NUNEZ [facility] ERT [id number] [facility] 2019-04-09 22:29:37 2019-04-09 23:28:00 Emergency X FLORIDALMA EVANS [facility] ERT [id number] [facility] 2019-01-21 18:38:01 2019-01-21 19:59:00 Emergency Drever, Le G [facility] 1.2.840.114 350.1.13.10 4.2.7.2.686 [id number] 2019-01-21 18:38:01 2019-01-21 19:59:00 Emergency Le Ramirez [facility] 1.2.840.114 350.1.13.10 4.2.7.2.686 [id number] [facility] Results Test Description Test Time Test Comments Results Result Co mments Source TSH, THIRD [id number] 23:53:27* Test Item Value Reference Range Interpretation Comme nts TSH, THIRD GENERATION (test code = 2821) 11.100 UIU/ML 0.400-4.100 H COMPREHENSIVE METABOLIC [id number] 23:46:03* Test Item Value Reference Range Interpretation Comme nts GLUCOSE (test code = 2217) 97 MG/DL 70-99 BUN (test code = 2208) 7 MG/DL 6-20 CREATININE (test code = 2214) 0.61 MG/DL 0.60-1.30 eGFR (2020 CKD-EPI) (test code = 30684) 110 ML/MIN/1.73 >60 CALC BUN/CREAT (test code [...] 13 U/L 5-40 CBC W/AUTO DIFF WITH [id number] 08:48:44* Test Item Value Reference Range Interpretation [...] 0.00-0.10 ABS NUCLEATED RBCS (test code = 88737) 0.00 K/UL 0.00-0.11 UNLESS OTHER MONTOYA INDICATED, ALL TESTING PERFORMED AT [facility] [address] [place] [address] ACUTE COORDINATOR: JATIN FELIPE M.D. CLIA NUMBER [id number] [place]. [id number] 01:13:06* Test Item Value Reference Range Interpretation Comme nts TRANSFERRIN (test code = 4936) 315 MG/DL 200-360 UNLESS OTHERWISE INDICATED, ALL TESTING PERFORMED AT [facility] [address] [place] [address] ACUTE COORDINATOR: JATIN FELIPE M.D. CLIA NUMBER [id number] [place] [id number] LIPID [id number] 01:12:48* Test Item Value Reference Range Interpretation [...] SPECIMENS. FOR MOREINFORMATION, SEE CLIENT ANNOUNCEMENT AT [email or web address] RISK RATIO LDL/HDL (test code = 2238) 1.34 RATIO <3.22 COMPREHENSIVE METABOLIC [id number] 01:12:48* Test Item Value Reference Range Interpretation Comme nts GLUCOSE (test code = 2217) 92 MG/DL 70-99 BUN (test code = 2208) 15 MG/DL 6-20 CREATININE (test code = 2214) 0.65 MG/DL 0.60-1.30 eGFR (2020 CKD-EPI) (test code = 99801) 108 ML/MIN/1.73 >60 CALC BUN/CREAT (test code [...] IRON BINDING CAPACITY AND IRON AND % [id number] 01:12:48* Test Item Value Reference Range Interpretation Comme nts IRON, SERUM (test code = 222) 51 UG/DL 37-145 UNSATURATED IBC (test code = 10860) 356 UG/DL 112-347 H CALC TOTAL IBC (test code = 2076) 407 UG/DL 250-450 CALC % IRON SAT (test code = 2078) 13 % 20-50 L [id number] 00:59:24* Test Item Value Reference Range Interpretation Comme nts FERRITIN (test code = 207) 20 NG/ML 13-200 HEMOGLOBIN [id number] 03:08:40* Test Item Value Reference Range Interpretation Comme nts HEMOGLOBIN A1c (test code = 77506) 5.5 % 4.2-5.6 CBC W/AUTO DIFF WITH [id number] 02:29:36* Test Item Value Reference Range Interpretation [...] 0.00-0.10 ABS NUCLEATED RBCS (test code = 65272) 0.00 K/UL 0.00-0.11 DRUGS OF [id number] 05:03:00* Test Item Value Reference Range Interpretation [...] 200 ng/mL Opiates 300 ng/mL URINALYSIS WITH [id number] 04:56:00* Test Item Value Reference Range Interpretation [...] (test code = USPERM) /HPF NONE URINE [id number] 04:53:00* Test Item Value Reference Range Interpretation [...] the FDA and the [employer] (CAP) are more stringent than those required for this test. Therefore, the result should be interpreted with caution and close attention to other clinical and epidemiological data [id number] 16:00:00* Test Item Value Reference Range Interpretation Comme nts SALICYLATE (test code = 94B) <3.0 mg/dL 15.0-30.0 L LIVER [id number] 15:49:00* Test Item Value Reference Range Interpretation [...] code = 31A) <7 IU/L 10-49 L [id number] 15:48:00* Test Item Value Reference Range Interpretation [...] to interpret this result as normal/abnormal. 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 Old healed fractures of the distal tibia and fibular noted.Soft tissues: Unremarkable.IMPRESSION: No acute findings.Electronically signed by: Nikko Santiago MD 11/04/2022 3:10 PM CDT [id number] BEDSIDE [id number] 11:51:00* Test Item Value Reference Range Interpretation Comme nts GLUCOSE BEDSIDE TESTING (karen t code = GLUBED) 79 MG/DL 70-119 N GLUCOSE BEDSIDE [id number] 06:23:00* Test Item Value Reference Range Interpretation Comme nts GLUCOSE BEDSIDE TESTING (karen t code = GLUBED) 80 MG/DL 70-119 N BASIC METABOLIC [id number] 05:12:00* Test Item Value Reference Range Interpretation [...] <2.0 indicates None DetectedPerformed At: [facility] [address] [id number] Michael Reeves MD Ph:[phone] GLUCOSE BEDSIDE [id number] 19:51:00* Test Item Value Reference Range Interpretation Comme nts GLUCOSE BEDSIDE TESTING (karen t code = GLUBED) 129 MG/DL 70-119 H OSMOLALITY [id number] 17:56:00* Test Item Value Reference Range Interpretation Comme nts OSMOLALITY SERUM (test code = OSMO) 269 mOsm/kg 275-300 L THYROID STIMULATING [id number] 17:56:00* Test Item Value Reference Range Interpretation Comme nts THYROID STIMULATING HORMONE (test code = TSH) 4.190 mc IU/ML 0.340-4.820 N GLUCOSE BEDSIDE [id number] 15:49:00* Test Item Value Reference Range Interpretation Comme nts GLUCOSE BEDSIDE TESTING (karen t code = GLUBED) 86 MG/DL 70-119 N CREATINE KINASE (CK)2022-09-18 14:33:00* Test Item Value Reference Range Interpretation Comme nts CREATINE KINASE (CK) (test c ode = CK) 145 Unit/L 26-192 N VALPROIC ACID (DEPAKENE)2022-09-18 14:26:00* Test Item Value Reference Range Interpretation Comme [facility] VALPROIC ACID (DEPAKENE) (te st code = VALP) 37.5 mcG/ML 50.0-100.0 L [id number] 14:26:00* Test Item Value Reference Range Interpretation Comme nts AMMONIA (test code = AMM) 29.0 mcMOL/L 11.0-32.0 N GLUCOSE BEDSIDE [id number] 11:51:00* Test Item Value Reference Range Interpretation Comme nts GLUCOSE BEDSIDE TESTING (karen t code = GLUBED) 88 MG/DL 70-119 N GLYCOSYLATED HEMOGLOBIN (HA1C)2022-09-18 06:53:00* Test Item Value Reference Range Interpretation Comme [facility] GLYCOSYLATED HEMOGLOBIN (HA1 C) (test code = GLYHGB) 5.2 % IS-A1C 4.5-5.6 N ESTIMATED AVERAGE [id number] 06:53:00* Test Item Value Reference Range Interpretation [...] to interpret this result as normal/abnormal. UR [id number] 21:28:00* Test Item Value Reference Range Interpretation Comme nts UR SODIUM RANDOM (test code = JESUSITA) 93 mmol/L 40-200 N UR POTASSIUM RANDOM (test code = KU) 54.8 mmol/L 25-125 N NO ESTABLISHED NORMAL RANGES FOR RANDOM SPECIMENS. UR CHLORIDE RANDOM (test code = CLU) 164 mmol/L 110-150 H UR OSMOLALITY [id number] 21:28:00* Test Item Value Reference Range Interpretation Comme nts UR OSMOLALITY RANDOM (test c ode = OSMOU) 475 mOsm/kg 100-1400 N CBC W/O [id number] 20:05:00* Test Item Value Reference Range Interpretation [...] = MPV) 9.5 fL 6.8-11.2 N LACTIC [id number] 19:35:00* Test Item Value Reference Range Interpretation Comme nts LACTIC ACID (test code = LACT) 1.0 mmol/L 0.4-2.0 N HCG SERUM [id number] 19:31:00* Test Item Value Reference Range Interpretation Comme nts HCG SERUM QUAL (test code = HCGQL) Negative SCREEN NEG - CT HEAD/BRAIN W/O [id number] 18:59:00 [facility] : 1975 Sex: F Patient Name: BHUMIKA JONES Unit No: [id number] EXAMS: CPT CODE: [id number] CT HEAD/BRAIN W/O CONT 14464 Location: H3 CT head, conducted on 09/17/22 [...] from the exam acquired earlier today. Electronically Jade d by Nati Hunt M.D. on 09/17/2022 at 1859 Reported and signed by: Nati Hunt M.D. CC: Valentina Samayoa MD Dictated Date/Time: 09/17/2022 (1858) Technologist: GIL Marie(Abner)(CT) CTDI: DLP: Trnscrpt: 09/17/2022 (1858) NadiyaDAS6 [facility] NAME: JONES[address] PHYS: Valentina Mattson MD, [place] [address] : 1975 AGE: 47 SEX: F LOC: JOSHUA 20 PHONE #: [phone] EXAM DATE: 09/17/2022 STATUS: ADM IN FAX #: [phone] RAD #: D/C DT PAGE 1 Signed Report Patient Name: SILAS JONESPCION Unit No: [id number] EXAMS: CPT CODE: [id number] CT HEAD/BRAIN W/O CONT 34980 (Continued) Orig Print D/T: S: 09/17/2022 (1902) DENIZ Parish NAME: ROBERT[address] PHYS: Valentina Mattson MDRuth [place] [address] : 1975 AGE: 47 SEX: F LOC: MITCHELLED 20 PHONE #: [phone] EXAM DATE: 09/17/2022 STATUS: ADM IN FAX #: [phone] RAD #: D/C DT PAGE 2 Signed ReportURINALYSIS [id number] 16:28:00* Test Item Value Reference Range Interpretation [...] >0 /UL NONE-SQepi DRUGS OF ABUSE SCREEN [id number] 16:28:00* Test Item Value Reference Range Interpretation [...] interpret this result as normal/abnormal. TROP-I HIGH ASUJWVGLSDI6358-35-61 16:26:00* Test Item Value Reference Range Interpretation [...] and URLs may vary bymethod. BASIC METABOLIC [id number] 16:25:00* Test Item Value Reference Range Interpretation [...] interpret this result as normal/abnormal. HEPATIC FUNCTION [id number] 16:25:00* Test Item Value Reference Range Interpretation [...] ode = CK) 92 Unit/L 26-192 N [id number] 16:25:00* Test Item Value Reference Range Interpretation Comme nts LIPASE (test code = LIP) 57 Unit/L 114-286 L - CT HEAD/BRAIN W/O [id number] 00:32:00 [facility] BHUM[facility]A JONES : 1975 Sex: FPatient Name: BHUMIKA JONES Unit No: [id number] EXAMS: CPT CODE: [id number] CT HEAD/BRAIN W/OCONT [address] EXAM: - CT HEAD/BRAIN W/O CONT LOCATION: H57 HISTORY: 47 years-year old Female with sz TECHNIQUE: Computerized tomography images from the skull base to the vertex were obtained. Coronal and sagittal reformatted images are provided. This exam was performed according to our departmental do se-optimization program, which includes automated exposure control, adjustment [...] Terry August CTDI: DLP: Trnscrpt: 09/17/2022 (31) [email or web address] [facility] NAME: BHUMIKA JONES [address] [place] [address] PHYS: PATCA.02 - Asim Jack MD, [place] [id number] : 1975 AGE: 47 SEX: F LOC: GregorioERS PHONE #: [phone] EXAM DATE: 09/16/2022 STATUS: REG ER FAX #: [phone] RAD #: D/C DT PAGE 1 Signed Report Patient Name: BHUMIKA JONES Unit No: [id number] EXAMS: CPT CODE: [id number] CT HEAD/BRAIN W/O CONT 10728 (Continued) Orig Print D/T: S: 09/17/2022 (0035) DENIZ Lugo NAME: SILAS JONESPCION [address] [place] [address] PHYS: Asim Perera MDA[place] [id number] : 1975 AGE: 47 SEX: F LOC: MARCOS PHONE #: [phone] EXAM DATE: 2022 STATUS: REG ER FAX #: [phone] RAD #: D/C DT PAGE 2 Signed ReportTROP-I HIGH [id number] 00:13:00* Test Item Value Reference Range Interpretation [...] and URLs may vary bymethod. COMPREHENSIVE METABOLIC [id number] 00:11:00* Test Item Value Reference Range Interpretation [...] interpret this result as normal/abnormal. CBC W/AUTO [id number] 23:59:00* Test Item Value Reference Range Interpretation [...] K/mm3 0.0-0.05 N - XR CHEST 1 [id number] 23:34:00 [facility] BHUM[facility] JON[facility] : 1975 Sex: F [place]: St: PRE -- Patient Name: BHUMIKA JONES Unit No: [id number] EXAMS: CPT CODE: [id number] XR CHEST 1 V 87865 EXAMINATION: - XR CHEST 1 V CLINICAL [...] 09/16/2022 (233)Technologist: Muna Monet Transcribed Date/Time: 09/16/2022 (2333) By: NadiyaJH12 Orig Print D/T: S: 09/16/2022 (8926) [facility] SILAS JONESPCION [address] [place] [address] PHYS: PATCA.02 - Asim Jack [place], [place] [address] : 1975 AGE: 47 SEX: F LOC: B.ERS PHONE #: [phone] EXAM DATE: 09/16/2022 STATUS: PRE ER FAX #: [phone] RAD NO: DC Dt: PAGE 1 Signed ReportCARBAMAZEPINE (TEGRETOL) 2022-09-15 06:12:00* Test Item Value Reference Range Interpretation Comme nts CARBAMAZEPINE (TEGRETOL) (test code = CARB) 1.5 ug/mL 4.0-12.0 L In conjunction w ith other antiepileptic drugs Therapeutic 4.0 - 8.0 Toxicity 9.0 - 12.0 Carbamazepine alone Therapeutic 8.0 - 12.0 Detection Limit = 2.0 <2.0 indicates None DetectedPerformed At: [facility] [address] [place], [place] [id number] Michael Reeves MD Ph:[phone] VALPROIC ACID (DEPAKENE)2022-09-15 06:12:00* Test Item Value Reference Range Interpretation Comme nts VALPROIC ACID (DEPAKENE) (te st code = VALP) 80.6 mcG/ML 50.0-100.0 N COMPREHENSIVE METABOLIC [id number] 06:00:00* Test Item Value Reference Range Interpretation [...] interpret this result as normal/abnormal. CBC W/AUTO [id number] 05:37:00* Test Item Value Reference Range Interpretation [...] NRBC#) 0.00 K/mm3 0.0-0.05 N GLUCOSE BEDSIDE [id number] 20:03:00* Test Item Value Reference Range Interpretation Comme nts GLUCOSE BEDSIDE TESTING (karen t code = GLUBED) 117 MG/DL 70-119 N DRUGS OF ABUSE SCREEN [id number] 11:42:00* Test Item Value Reference Range Interpretation [...] result as normal/abnormal. - CT HEAD/BRAIN W/O [id number] 11:37:00 [facility] BH[facility] : 1975 Sex: F Patient Name: BHUMIKA JONES Unit No: [id number] EXAMS: CPT CODE: [id number] CT HEAD/BRAIN W/O CONT 54402 EXAMINATION: - CT HEAD/BRAIN W/O CONT COMPARISON: [...] MD; Jim Jaimes MD Dictated Date/Time: 09/14/2022 (3437) Technologist: ASUNCION CANALES: DLP: Trnscrpt: 09/14/2022 (7177) [email or web address] DENIZ Lugo NAME: BHUMIKA JONES [facility] PHYS: Vladimir Menchaca MD [address] [place] [address] : 1975 AGE: 47 SEX: F [place] [address] LOC: NEHA 10 PHONE #: [phone] EXAM DATE: 09/14/2022 STATUS: ADM IN FAX #: [phone] RAD #: D/C DT PAGE 1 Signed Report Patient Name: BHUMIKA JONSE Unit No: [id number] EXAMS: CPT CODE: [id number] CT HEAD/BRAIN W/O CONT 69926 (Continued) Orig Print D/T: S: 09/14/2022 (9063) DENIZ Lugo NAME: SILAS JONESPCION [facility] PHYS: Vladimir Menchaca MD [address] [place] [address] : 1975 AGE: 47 SEX: F [place] [address] LOC: NEHA 10 PHONE #: [phone] EXAM DATE: 09/14/2022 STATUS: ADM IN FAX #: [phone] #: D/C DT PAGE 2 Signed ReportPT AND [id number] 06:51:00* Test Item Value Reference Range Interpretation [...] AVOIDED DUE TO POSSIBLE HEPARINCONTAMINATION HCG SERUM [id number] 06:51:00* Test Item Value Reference Range Interpretation [...] CK) 268 Unit/L 26-192 H CBC W/AUTO [id number] 03:43:00* Test Item Value Reference Range Interpretation [...] = NRBC#) 0.00 K/mm3 0.0-0.05 N URINALYSIS QWDOTSQY1928-35-63 03:41:00* Test Item Value Reference Range Interpretation [...] RARE /LPF NONE - XR CHEST 2 [id number] 02:06:00 [facility]: BHUMIKA JONES : 1975 Sex: F FAX: Suleman Carvalho APRTONI [phone] [place]: [address]: REG Patient Name: BHUMIKA JONES Unit No: [id number] EXAMS: CPT CODE: [id number] XR CHEST 2 V 78045 EXAM: - XR CHEST 2 V HISTORY: [...] D/T: S: 09/14/2022 (0209) DENIZ Lugo NAME: ROBERT[address] PHYS: HUVAD - [place], [place] [address] : 1975 AGE: 47 SEX: F LOC: MARCOS PHONE #: [phone] EXAM DATE: 09/14/2022 STATUS: REG ER FAX #: [phone] RAD NO: DC Dt: PAGE 1 Signed Report COMPREHENSIVE METABOLIC [id number] 12:49:00* Test Item Value Reference Range Interpretation [...] used to interpret this result as normal/abnormal. [id number] 12:49:00* Test Item Value Reference Range Interpretation Comme nts MAGNESIUM (test code = MAG) 1.7 MG/DL 1.6-2.6 N CBC W/AUTO [id number] 12:36:00* Test Item Value Reference Range Interpretation [...] RARE /LPF NONE DRUGS OF ABUSE SCREEN [id number] 00:33:00* Test Item Value Reference Range Interpretation [...] 300 ng/mL UA RFLX MICR CULT IF [id number] 00:30:00* Test Item Value Reference Range Interpretation [...] culture: Suprapubic PainSpecimen Description: CLEAN CATCHBASIC METABOLIC [id number] 00:18:00* Test Item Value Reference Range Interpretation [...] 8.9 mg/dl 8.0-10.5 N HEPATIC FUNCTION PANEL [id number] 00:18:00* Test Item Value Reference Range Interpretation [...] ALKP) 113 Units/L 50.0-136.0 N HCG SERUM [id number] 00:18:00* Test Item Value Reference Range Interpretation Comme nts HCG SERUM QUAL (test code = HCGQL) NEGATIVE NEGATIVE [id number] 00:18:00* Test Item Value Reference Range Interpretation Comme nts ALCOHOL (test code = ALC) 0.00 gm/dL 0.00-0.00 N ETHYL ALCOHOL MIRELLA HARRELL - INTERPRETATION: 0.050 GM/DL - NOT INTOXICATED 0.100 GM/DL - INTOXICATED 0.350-0.450 GM/DL - SEVERELY INTOXICATED 0.550 GM/DL- FATAL INTOXICATION Coronavirus 2019 nCoV Xysctyp7293-04-85 00:09:00* Test Item Value Reference Range Interpretation Comme nts Coronavirus 2019 nCoV Bedside (test code = [id number]) Negative NEGATIVE Negative results should be treated as presumptive and ifinconsistent with clinical signs and symptoms, or necessaryfor patient management, should be tested with an alternativemolecular assay. Negative results do not preclude LDRJ-EoL-0ecdghuqrf and should not be used as the sole basis forpatient management decisions. Negative results should beconsidered in the context of a patient's recent exposures,history, presence of clinical signs and symptoms consistentwith COVID-19. CBC W/AUTO [id number] 23:58:00* Test Item Value Reference Range Interpretation [...] X10 3uL 0.00-0.01 N COMP. METABOLIC PANEL (37901)2022-09-07 02:12:41* Test Item Value Reference Range Interpretation Comme nts NA (test code = 3144181262) 133 mmol/L 135-145 L K (test code = 6635182733) 4.4 mmol/L 3.5-5.0 CL (test code = 7267109391) 102 mmol/L 98-108 CO2 TOTAL (test code = 6321368630) 25 mmol/L 23-31 AGAP (test code = 4840672647) 6 2-16 BUN (test code = 8894651875) 22 mg/dL 7-23 GLUCOSE (test code = 8852996405) 97 mg/dL 70-110 CREATININE (test code = 0945369383) 0.40 mg/dL 0.50-1.04 L TOTAL BILI (test code = 8147604650) 0.3 mg/dL 0.1-1.1 CALCIUM (test code = 6836619818) 8.9 mg/dL 8.6-10.6 T PROTEIN (test code = 9520883128) 7.7 g/dL 6.3-8.2 ALBUMIN (test code = 2680799518) 4.0 g/dL 3.5-5.0 ALK PHOS (test code = 7837651935) 104 U/L 34-122 ALTv (test code = 1742-6) 15 U/L 5-35 AST(SGOT) (test code = 9871234190) 22 U/L 13-40 eGFR (test code = 7942778330) 170.4 mL/min/1.73m2 HANNAH (test code = HANNAH) [...] imaging tests). Lab Interpretation (test code = 72382-4) Abnormal [facility] WITH [id number] 02:01:20* Test Item Value Reference Range Interpretation Comme nts WBC (test code = 6690-2) 6.17 See_Comment [Automated [employer]] The system which generated this result transmitted reference range: 4.30 - 11.10 10*3/?L. The reference range was not used to interpret this result as normal/abnormal. RBC (test code = 789-8) 3.73 See_Comment L [Automated [employer]] The system which generated this result transmitted [...] 32.9 g/dL 31.6-35.1 RDW-SD (test code = 31665-4) 48.1 fL 39.0-49.9 RDW-CV (test code = 788-0) 14.7 % 12.0-15.5 PLT (test code = 777-3) 272 See_Comment [Automated messa ge] The system which generated this result transmitted reference range: 166 - 358 10*3/?L. The reference range was not used to interpret this result as normal/abnormal. MPV (test code = 78520-6) 9.6 fL 9.5-12.9 NRBC/100 WBC (test code = 9963889400) 0.0 See_Comment [Automated [employer] ssage] The system which generated this result transmitted reference range: 0.0 - 10.0 /100 WBCs. The reference range was not used to interpret this result as normal/abnormal. NRBC x10^3 (test code = 3141701719) See_Comment [Automated [employer]] The system which generated this result transmitted reference range: 10*3/?L. The reference range was not used to interpret this result as normal/abnormal. GRAN MAT (NEUT) % (test code = 770-8) 42.2 % IMM GRAN % (test code = 1346646128) 0.20 % LYMPH % (test code = 736-9) 38.2 % MONO % (test code = 5905-5) 12.6 % EOS % (test code = 713-8) 5.8 % BASO % (test code = 706-2) 1.0 % GRAN MAT x10^3(ANC) (test code = 4448192057) 2.60 10*3/uL 1.88-7.09 IMM GRAN x10^3 (test code = 1459462141) 0.00-0.06 LYMPH x10^3 (test code = 731-0) 2.36 10*3/uL 1.32-3.29 MONO x10^3 (test code = 742-7) 0.78 10*3/uL 0.33-0.92 EOS x10^3 (test code = 711-2) 0.36 10*3/uL 0.03-0.39 BASO x10^3 (test code = 704-7) 0.06 10*3/uL 0.01-0.07 Lab Interpretation (test code = 84933-0) [facility] [id number] 22:34:12 Impression: 1. ?No acute intracranial process. [...] mastoidair cells, paranasal sinuses are within normallimits. [facility], Radiant Results Inft User - 07/22/2019 [...] he patient. Please correlate with history and physicalexamination.[facility] HospitalXR CERVICAL SPINE 2 [id number] 22:29:40No acute osseous abnormality. Preliminary Report Dictated [...] reviewed this study and agree with theabove report.[facility] HospitalCBC WITH KMLWAIRZIGJF4411-06-32 21:46:00* Test Item Value Reference Range Interpretation [...] 32.2 g/dL 31.6-35.1 RDW-SD (test code = 12791-8) 45.1 fL 39-49.9 RDW-CV (test code = 788-0) 14.6 % 12-15.5 PLT (test code = 777-3) See_Comment L [Automated messa ge] The system which generated this result transmitted reference range: 166 - 358 10*3/?L. The reference range was not used to interpret this result as normal/abnormal. MPV (test code = 90676-9) 9.0 fL 9.5-12.9 L NRBC/100 WBC (test code = 1437304082) See_Comment [Automated [employer] ssage] The system which generated this result transmitted reference range: 0.0 - 10.0 /100 WBCs. The reference range was not used to interpret this result as normal/abnormal. NRBC x10^3 (test code = 5104929686) <0.01 See_Comment [Automated messa ge] The system which generated this result transmitted reference range: 10*3/?L. The reference range was not used to interpret this result as normal/abnormal. GRAN MAT (NEUT) % (test code = 770-8) 51.3 % IMM GRAN % (test code = 9479582435) 0.40 % LYMPH % (test code = 736-9) 24.4 % MONO % (test code = 5905-5) 23.1 % EOS % (test code = 713-8) 0.4 % BASO % (test code = 706-2) 0.4 % GRAN MAT x10^3(ANC) (test code = 8683918723) 2.48 10*3/uL 1.88-7.09 IMM GRAN x10^3 (test code = 3293958838) <0.03 0-0.06 LYMPH x10^3 (test code = 731-0) 1.18 10*3/uL 1.32-3.29 L MONO x10^3 (test code = 742-7) 1.12 10*3/uL 0.33-0.92 H EOS x10^3 (test code = 711-2) <0.03 0.03-0.39 L BASO x10^3 (test code = 704-7) <0.03 0.01-0.07 Lab Interpretation (test code = 99407-2) Abnormal [facility] C[facility] 2 [id number] 03:28:03No acute osseous abnormality. Preliminary Report Dictated [...] this study and agree withthe above report. [facility] HospitalValproic Acid Qrzhn6336-11-66 08:03:22* Test Item Value Reference Range Interpretation Comme nts Valproic Acid Level (test co de = Valproic Acid Level) 57.6 ug/mL(g) 50.0-100.0 Hemoglobin [id number] 09:36:00* Test Item Value Reference Range Interpretation Comme nts Hemoglobin A1c (test code = Hemoglobin A1c) 5.0 % 4.8-5.9 Non Diabetic 4.8-5.9%Diabetic <7.0% CT Shoulder w/o Contrast Tvmj2836-92-20 16:49:13Patient: BHUMIKA JONES Date/Time01/09/2019 16:14 CDTReason for [...] Adam FSigned (Electronic Signature): 01/09/2019 4:49 pmRPR Ohpmjqqxmun8952-35-80 21:33:20* Test Item Value Reference Range Interpretation [...] 04-23-2020 N XR Shoulder Complete 2+ Views Jkdu8826-95-66 15:41:25Patient: BHUMIKA JONES Date/Time01/07/2019 15:25 CDTReason for [...] CSigned (Electronic Signature): 01/07/2019 3:41 pmThyroid Stimulating Wqmbjvz6954-17-07 03:07:04* Test Item Value Reference Range Interpretation Comme nts TSH (test code = TSH) 9.650 mIU/mL 0.270-4.200 H Lipid Toijk7195-80-65 03:07:03* Test Item Value Reference Range Interpretation Comme nts Cholesterol Total (test code = Cholesterol Total) 199 mg/dL 0-200 RISK OF HEART DISEASEPublished by [place] [employer] Association Analyte Optimal Borderline Increased RiskCHOL [...] is LDL/HDL Ratio=LDL Calc/HDL Chol HCG Qualitative Dicbq9810-17-77 02:33:13* Test Item Value Reference Range Interpretation Comme nts HCG, Serum Qual (test code = HCG, Serum Qual) Negative Lot # (test code = Lot #) [id number] N Expiration Dt (test code = Expiration Dt) 2020-04-23 N Neg Control (test code = Neg Control) Negative Pos Control (test code = Pos Control) Positive Internal QC (test code = Int ernal QC) Acceptable Drugs of Abuse Urine 60027-29-44 18:58:11* Test Item Value Reference Range Interpretation [...] = Cannabinoid Screen Ur) Negative Negative Alcohol Bakuf7141-83-13 18:47:34* Test Item Value Reference Range Interpretation Comme nts Ethanol Level (test code = Ethanol Level) <0.00 g/dL 0.00-0.01 Intoxicated 0.08 0 g/dL or more Ethanol Inst (test code = Ethanol Inst) <0 N Comprehensive Metabolic Eciam2372-02-25 18:47:33* Test Item Value Reference Range Interpretation [...] A/G Ratio) 1.0 ratio N Comprehensive Metabolic Kpdra9909-05-51 18:47:33* Test Item Value Reference Range Interpretation [...] is not provided, and the patient is -[place]ian, multiply by 1.212. If sex is not [...] the National Kidney Foundation, http://nkdep.nih.gov Comprehensive Metabolic Zyhed7821-99-02 18:47:33* Test Item Value Reference Range Interpretation [...] is not provided, and the patient is -[place]ian, multiply by 1.212. If sex is not [...] is not provided, and the patient is -[place]ian, multiply by 1.212. If sex is not [...] Kidney Foundation, http://nkdep.nih.gov Complete Blood Count with Tdfrwyrxcnno5511-17-64 18:15:23* Test Item Value Reference Range Interpretation [...] code = IPF) 0 % N Automated Fdvzwenknpox7207-61-84 18:15:23* Test Item Value Reference Range Interpretation Comme nts Neutro Auto (test code = Sunny tro Auto) 42.1 % 36.0-70.0 Lymph Auto (test code = Lymph Auto) 40.0 % 12.0-44.0 [place] Auto (test code = [place] Auto) 12.2 % 0.0-11.0 H Eos, Auto (test code = Eos, Auto) 4.9 % 0.0-7.0 Basophil Auto (test code = B asophil Auto) 0.6 % 0.0-2.0 Neutro Absolute (test code = Neutro Absolute) 2.2 x10 1.6-7.4 Lymph Absolute (test code = Lymph Absolute) 2.06 x10 .50-4.60 [place] Absolute (test code = M richa Absolute) .63 x10 .00-1.20 Eos Absolute (test code = Eo s Absolute) 0.25 x10 0.00-0.74 Baso Absolute (test code = B aso Absolute) 0.03 x10 0.00-0.21 IG Cntuf8414-42-09 18:15:23* Test Item Value Reference Range Interpretation Comme nts IG (test code = IG) 0.2 % 0.0-5.0 IG Abs (test code = IG Abs) 0 x10 N Notes Date/Time Note Provider Source 2022-10-11 12:29:00 [id number] [id number]:29:00 [facility])Hospitalist Discharge SummaryREPORT#:[id number] REPORT STATUS: SignedDATE:10/11/22 TIME: 1229 PATIENT: BHUMIKA JONES UNIT #: [id number]#: [id number] [address] [birth year] AGE: 47 SEX: F ATTEND: [...] patient this morning with the help of fitness instructor and she said that he lives with [...] hospital course currently on one-to-one sitter can maciel MARCELINO'd laterthis afternoon if remains stable Med Rec [...] capillary refill, normal range of motion, no edemaNeuro/OFFICE ASST: altered mental status, alert Discharge Instructions PCPDischarge to: Home/Self CareAdditional Discharge Routines: PCP Follow-UpDiet: Resume Home Diet/FeedsActivity: As Tolerated Follow-up AppointmentsPCP follow-up: PCP: No Primary or Family Physician PCP follow up timeframe: In 6 days at 1230 RPT #:[id number] OF REPORTDSDischarge [id number]:29:00B.[id number] ailable for patient nvsrSSVJKWPMHKJLQT2531-86-84I41:30:[address] [facility] 2022-09-18 17:27:00 [id number] QuAeZJhKR1FLMTHaRNUJdLSuxVft7 MTmm6OgMSR+Ep4UwLXgnilWp6pK8078-86-78J18:27:00 [facility] ([facility])Electroencephalogram-EEGREPORT#:[id number] REPORT STATUS: SignedDATE:09/18/22 TIME: 172 PATIENT: BHUMIKA JONES UNIT #: [id number]#: [id number] ROOM/BED: [facility]1DOB: [birth year] AGE: 47 SEX: F ATTEND: Marly Mendenhall [facility] AUTHOR: Nelia Parker MD * [...] open eyes (commands were obtained using a customs port director) with opening the eyes the patient would [...] except with the patientmentioned. at 1736 RPT #:[id number] OF REPORTDIDiagnostic tgftewa9134-64-67P26:27:00B.EGBO50368074-3565TCWn ailable for patient ctryGFHUBDDOHCYWES6780-01-41F43:37:[address] [facility] 2022-09-18 14:24:00 [id number] ZEHMfXPE55FX1ugq2Qwzu1zM3IoeG Jh6sl4+Yz9eSxNOdFYdOYM0YCsb2913-81-26L05:24:00 [facility] ([facility])Neurology Consultation NoteREPORT#:[id number] REPORT STATUS: SignedDATE:09/18/22 TIME: 1424 PATIENT: BHUMIKA JONES UNIT #: [id number]#: [id number] ROOM/BED: [facility]1DOB: [birth year] AGE: 47 SEX: F ATTEND: Marly Mendenhall MDA AUTHOR: Nelia Parker MD * ALL edits or amendments must be made on the electronic/computer document * See AddendumHistory of Present Illness HPIRequesting clinician: see consult orderReason for consult:"AMS"Chief complaint:wanting to go home for her familyHPI:47-year-old female Trinidadian speaking only who was brought into the [...] refilled and the patient was sent to [facility]. Reportedly per the patient she did not like the fdc and does not like the food there [...] or seizures prior to herbeing in the fdc. Per the patient she get upset that [...] to her family. Only ambulance records from yxs30[facility] for patient who was brought in here [...] available to confirm the history and the fdc location is unknown to contact someone who [...] MG 09/18 09/18 09/17 09/17 0553 0553 1850 1519Chemistry Hemoglobin A1c (4.5 - 5.6 [...] - 8.0 pH UNITS) 6.5 Ur Specific [place] (1.001 - 1.035 SG) 1.013 Urine Protein [...] in the past ornot. at 1652 RPT #:[id number] OF REPORTQAWevaesvogvxx8035-95-13C92:24:00B.PDOC2 4307824-3565BMLzmunvxgg for patient adklNTBKJLPWXQTUZQ0122-40-84Z96:10:[address] [facility] 2022-09-18 11:44:00 [id number] MoSP2sCxxAYyWYjXBz7E08mJmQbMp QeNVFxv0x/uSJqObzr4RVVjTCDo8769-83-26H82:44:00 [facility] Progress NoteREPORT#:[id number] REPORT STATUS: SignedDATE:09/18/22 TIME: 1144 PATIENT: BHUMIKA JONES UNIT #: [id number]#: [id number] [address] [birth year] AGE: 47 SEX: F [facility] AUTHOR: Marly Mendenhall MD * ALL edits or amendments must be made on the electronic/computer document * SubjectiveChief complaint:Altered mental statusHPI:This is a 47-year-old female with past medical history of schizophrenia seizure disorder she was brought into the ER because of altered mental status she had decreased responsiveness from her the patient this morning with the help of fitness instructor and she said that he lives with [...] capillary refill, normal range of motion, no edemaNeuro/OFFICE ASST: altered mental status, alert Diagnosis, Assessment Plan [...] afternoon if remains stable at 1147 RPT #:[id number] OF REPORTPRProgress avoz4770-10-00M32:44:00B.EQPP10650452-8848KDYngrd able for patient tgrwDVQWEMMCZKNLRM0702-13-19P13:47:26 [facility] 2022-09-18 01:06:00 [id number] 0MfAkAztoweb2cGG4d9TaPJ4CVNeb dylP1zXQ1XpNh2QF+dcM0uoH/pU2285-71-42W80:06:00 [facility] History PhysicalREPORT#:[id number] REPORT STATUS: SignedDATE:09/18/22 TIME: 0106 PATIENT: BHUMIKA JONES UNIT #: [id number]#: [id number] [address] [birth year] AGE: 47 SEX: F ATTEND: Marshall Orellana [facility] AUTHOR: Nelia Moffett MD * [...] - 8.0 pH UNITS) 6.5 Ur Specific [place] (1.001 - 1.035 SG) 1.013 Urine Protein [...] SCAN - CT HEAD/BRAIN W/O CONT 09/17 183 Report Impression - Status: SIGNED Entered: 09/17/2022 [...] awakeCardiovascular: regular rate rhythmRespiratory: decreased breath soundsAbdomen: softNeuro/OFFICE ASST: altered mental status, alert Diagnosis, Assessment PlanFree Text A P:HyponatremiaDo a work-upContinue Ringer lactate 50 cc/h monitor electrolytes Metabolic encephalopathyNeuro watchTreat underlying condition SchizophreniaContinue home medication once confirmed Seizure disorderContinue home medicationSeizure precaution DVT prophylaxisLovenoxAdvanced directive discussedMedication reviewed and reconciledBefore midnightI will sign off at 6 AM today further management by incoming MD thereafter at 0110 RPT #:[id number] OF REPORTHPHistory and physical lsjofrdwadv1681-89-72N15:06:00B.KYYG92737406-6038 AVAvailable for patient pckmVXFTDTYKBATXIW0788-96-70Q03:10:[address] [facility] 2022-09-17 14:34:00 [id number] HWz0/Kz9+a8vTFxmOAXWXxLdEhZBJ SGmTLcW237VgJIAJSS9Bn91K5nf9314-45-29D52:34:00 [facility] ([facility])EMERGENCY PROVIDER REPORTREPORT#:[id number] REPORT STATUS: SignedDATE:09/17/22 TIME: 1434 PATIENT: BHUMIKA JONES UNIT #: [id number]#: [id number] ROOM/BED: [facility]1AGE: 47 SEX: F PCP PHYS: No Primary or Family PhysicianSERVICE AUTHOR: Valentina Samayoa MD * ALL edits or amendments must be made on the electronic/computer document * HPI-General Illness Free Text HPI NotesFree Text HPI Fqmjp80-iuzp-brv female presents after possible seizure episode at [facility], will assessment patient is not fully oriented, and cannot provide history of theevents of today when asked multiple times. Additional history limited as the patient is tearful and not fully oriented. I spoke to the patient's sister Lewis Chiang, phone #[phone] by phone, who reports the patient has been missing from home for 8 days. Reports when the patient is medically cleared they can come get the patient. Patient reportedly initially without medicationsat the [facility] PMH: Seizures, schizophrenia. GeneralInitial Greet Date/Time 09/17/22 [...] #30 TABS Prov: 09/13/22 DC: 09/14/22 [address] (GINA CALLES) 1,000 MG PO DAILY DIVALPROEX DR (GINA CALLES) 1,000 MG PO DAILY #60 TABS Prov: 09/13/22 DC: 09/14/22 1459 substance abuse therapist correction Reported MedicationsDIVALPROEX ER (DEPAKOTE ER) 1,000 [...] - 8.0 pH UNITS) 6.5 Ur Specific [place] (1.001 - 1.035 SG) 1.013 Urine Protein [...] medication refill, drowsy, admitted, ultimately discharged back [facility]]-My EKG interpretation: I directly visualized [...] 1634 )( Accepted Date 09/17/22 at 1114RPT #:[id number] OF REPORTEDEmergency department drrzdc4785-18-96E07:34:00B.WDCI18169208-4248ADBly ilable for patient squfKPAXZLODXGJAWX8310-80-20F77:14:[address] [facility] 2022-09-17 00:19:00 [id number] aCrD3i2qmbr+/9FMdISqWV/sxJXR5 TZwaMBV+SjBBKra+/pBGi1rD4WN2491-95-10Z24:19:00 [facility] PROVIDER REPORTREPORT#:[id number] REPORT STATUS: SignedDATE:09/17/22 TIME: 0019 PATIENT: BHUMIKA JONES UNIT #: [id number]#: [id number] ROOM/BED:AGE: 47 SEX: F PCP PHYS: No Primary or Family PhysicianSERVICE AUTHOR: Asim Jack MD * ALL edits or amendments must be made on the electronic/computer document * HPI-General Illness GeneralInitial Greet Date/Time 09/16/22 5429 PresentationChief Complaint Anxiety, Not feeling well Free Text HPI NotesFree Text HPI NotesPatient brought in by EMS from [facility] after increasing anxiety and concern for possible seizure activity. She was recently admitted here at [facility] and worked up for possible seizures. [...] #30 TABS Prov: 09/13/22 DC: 09/14/22 1500 substance abuse therapist correctionDIVALPROEX (GINA CALLES) 1,000 MG PO DAILY DIVALPROEX (GINA CALLES) 1,000 MG PO DAILY #60 TABS Prov: 09/13/22 DC: 09/14/22 1459 substance abuse therapist correction Reported MedicationsDIVALPROEX ER (DEPAKOTE ER) 1,000 [...] Documented: Result Date Time Pulse Ox 99 03/27 0016 B/P 142/84 09/18 15 B/P Mean 103 [...] Tests 09/16/22 2334:[Embedded Image Not Available]Laboratory Tests: 09/16 09/16 2334 2334 Chemistry Sodium (133 - 144 mmol/L) [...] % (Auto) (14.1 - 45.4 %) 29.6 [place] % (Auto) (2.5 - 11.7 %) 10.8 Eos % (Auto) (0.0 - 6.2 %) 2.9 Baso % (Auto) (0.0 - 2.1 %) 0.7 Gran # (2.0 - 13.7 k/mm3) 3.12 Lymph # (Auto) (0.6 - 3.8 K/mm3) 1.65 [place] # (Auto) (0.11 - 0.59 K/mm3) 0.60 H Eos # (Auto) (0.0 - 0.4 K/mm3) 0.16 Baso # (Auto) (0.0 - 0.1 K/mm3) 0.04 Immature Gran % (0.0 - 2.0 %) 0.2 Nucleated RBC % (0.0 - 1.0 /100WBC%) 0.0 Nucleated RBCs # (0.0 - 0.05 K/mm3) 0.00 Recent Impressions:CAT SCAN - CT HEAD/BRAIN W/O CONT 03/26 0007 Report Impression - Status: SIGNED Entered: [...] in the medical decision-making. ECG #1 InterpretationText/Dict Fthc5434 EKG shows normal sinus rhythm and rate of 64. There is no acute ST elevation to suggest ischemia. Normal axis and intervals without significant hypertrophy or ectopy. Nonspecific T wave changes noted with low voltage. I personally reviewed and interpreted the EKG Re-Evaluation MDM Free Text MDM NotesFree Text MDM NotesPatient presents from local fdc with concern for possible seizure activity. I [...] for discharge. Patient urged to follow-up with [facility] in the next 2 to 3 days [...] 67 09/18 15 Resp 16 09/18 15 All vital signs available at the time of this entry have been reviewed. Clinical ImpressionClinical ImpressionPrimary Impression: AnxietySecondary Impressions: History of seizures, Homeless Disposition DecisionDischarge )( Discharged to Home Yes )( Time 013 Discharge/Care PlanCounseled Regarding Diagnosis, Lab results, Imaging studies, Need for follow-up,When to return to EDPatient Instructions ED Anxiety Reaction, ED Seizure, Recurrent (Adult)Additional InstructionsPlease follow-up with [facility], [facility], and neurology. Return if any confusion, headache, stiff neck, fever, vomiting, or any other new concerns. Please take all your medications as instructedReferralsProvider Group: [facility] Follow-Up: 2-3 Days Provider Referral: Nelia Parker MD Follow-Up: 2-3 Days Address: [address] [place] [address] [address] [place] [address] Resource Referral: [facility] Follow-Up: 2-3 Days Address: [address] [place] [address] at 0140RPT #:[id number] OF REPORTEDEmergency department nmgymf7796-03-54F93:19:00B.XDTD58805221-3894SPCdo ilable for patient kkobFDGJAQMBTARIRA3913-23-38W16:41:[address] [facility] 2022-09-15 12:06:00 [id number] AzuO3ZW3nihd6mXLe7jyTxoj6m+Qi 9T49tmBHniVqJzss9BlQ0k4T6233594-34-57B03:06:00 [facility] ([facility])Electroencephalogram-EEGREPORT#:[id number] REPORT STATUS: SignedDATE:09/15/22 TIME: 1206 PATIENT: BHUMIKA JONES UNIT #: [id number]#: [id number] [facility] [birth year] AGE: 47 SEX: F ATTEND: Vladimir Forbes [facility] AUTHOR: Vickie Lewis MD * [...] or electrographic seizures recorded. at 1209 RPT #:[id number] OF REPORTDIDiagnostic kgikwjb5115-22-05D71:06:00B.RZRV55360675-2647PYOf ailable for patient jcqiJJZFCGRYJROGFM2602-47-01X45:09:[address] [facility] 2022-09-15 12:00:00 [id number] S54XWgbZAzAJDAceWEqa/SeeLoMjm ChDt4yPwH4UnpUk9tJB8Ccv/fE92445-50-07V66:00:00 [facility] ([facility])Hospitalist Discharge SummaryREPORT#:[id number] REPORT STATUS: SignedDATE:09/15/22 TIME: 1200 PATIENT: BHUMIKA JONES UNIT #: [id number]#: [id number] ROOM/BED: [facility]-WDOB: [birth year] AGE: 47 SEX: F ATTEND: Vladimir Forbes [facility] AUTHOR: Vladimir Forbes MD * [...] evaluated for possible seizure episode. She is Trinidadian-speakingpatient only in central office worker was used. Patient denies to have any seizure episodes at home she just ran out of her medications and came to the hospital. Patient otherwise remains hemodynamically stable. However she is too drowsy to be discharged safely back home. I discussed the case with the patient.She wants her medications to be refilled and that she wants to go back to her fdc.I discussed with her about potential seizure episodes in the future use of medications compliance with the medications and further prescriptions. She states that she would management to the fdc. I have requested case management to evaluate [...] initial diagnosis and related differentials with the patient/childcare attendant including RN. All concerns and questions are answered to the best of my abilities based on theavailable data.I have initiated the plan of care based on preliminary diagnosis,requested appopriate consultations with labs/imagings. Patient/childcare attendant verbalizes understanding of the plan of care. [...] timeframe: In 1-2 weeks at 1202 RPT #:[id number] OF REPORTDSDischarge tqyxcpf7159-46-65B25:00:00B.RRAN13219250-5825JMRl ailable for patient uflbJPTUTQAUNNQZWX2750-64-34Y51:03:[address] [facility] 2022-09-14 16:56:00 QI9053272616q6M47iVx 2KlsG7YJR5+jp7g5D59TsGS5V6/2M AeRM3B4g4gkom+apVsLVQ18M/jQ8825-22-64J17:56:00 [facility] ([facility])Neurology Consultation NoteREPORT#:[id number] REPORT STATUS: SignedDATE:09/14/22 TIME: 1656 PATIENT: SILAS JONESPCION UNIT #: [id number]#: [id number] ROOM/BED: 250-WDOB: [birth year] AGE: 47 SEX: F ATTEND: Jim Jaimes [facility] AUTHOR: Vickie Lewis MD * [...] evaluated for possible seizure episode. She is Trinidadian-speakingpatient only in central office worker was used. Patient denies to have any [...] (SODIUM CHLORIDE 0.9% 1000 ML) 1,000 ML .Y87G75G IV Trazodone HCl (DESYREL) 50 MG BEDTIME PRN PRN PO Sodium Chloride (SODIUM CHLORIDE 0.9% 1000 ML) 1,000 ML .O56H99D IV Carbamazepine (TEGretol) 400 MG BID PO Divalproex Sodium (DEPAKOTE DR) 1,000 MG BID PO (DC) Acetaminophen (TYLENOL) 650 MG Q6H PRN PRN PO Ondansetron HCl (ZOFRAN) 4 MG Q4H PRN PRN IV Ceftriaxone Sodium (ROCEPHIN) 1 GM Q24H IV (CAN) Lactated Ringer's (LACTATED RINGERS) 1,000 ML .Y58D74H IV Ceftriaxone Sodium (ROCEPHIN) 1 GM X1ED [...] % (Auto) (14.1 - 45.4 %) 33.6 [place] % (Auto) (2.5 - 11.7 %) 13.4 H Eos % (Auto) (0.0 - 6.2 %) 7.4 H Baso % (Auto) (0.0 - 2.1 %) 0.9 Gran # (2.0 - 13.7 k/mm3) 2.61 Lymph # (Auto) (0.6 - 3.8 K/mm3) 1.96 [place] # (Auto) (0.11 - 0.59 K/mm3) 0.78 [...] - 8.0 pH UNITS) 6.0 Ur Specific [place] (1.001 - 1.035 SG) 1.032 Urine Protein [...] cardiopulmonary process.Impression By: NadiyaMKM4 - Igor Almonte, [facility] SCAN - CT HEAD/BRAIN W/O [...] deferred to primary team. at 1707 RPT #:[id number] OF REPORTOKKnozeyfjdigp6924-24-45X16:56:00B.PDOC2 5643460-0953XSArizbnhjj for patient apwdPBUXCUFLJTIMXC2495-14-76S57:07:40 [facility] 2022-09-14 14:55:00 ZP9205911111z/JIADP4 e8U0ALsF02sS5IPJsufdKC0ufe2Z6 DWHfRVZpPMQ7ceKK9PMQEQYIbA91883-24-39Q68:55:00 [facility] ([facility])Hospitalist History PhysicalREPORT#:[id number] REPORT STATUS: SignedDATE:09/14/22 TIME: 1454 PATIENT: BHUMIKA JONES UNIT #: [id number]#: [id number] [facility] [birth year] AGE: 47 SEX: F ATTEND: Jim Jaimes [facility] AUTHOR: Vladimir Forbes MD * [...] evaluated for possible seizure episode. She is Trinidadian-speakingpatient only in central office worker was used. Patient denies to have any [...] % (Auto) (14.1 - 45.4 %) 33.6 [place] % (Auto) (2.5 - 11.7 %) 13.4 H Eos % (Auto) (0.0 - 6.2 %) 7.4 H Baso % (Auto) (0.0 - 2.1 %) 0.9 Gran # (2.0 - 13.7 k/mm3) 2.61 Lymph # (Auto) (0.6 - 3.8 K/mm3) 1.96 [place] # (Auto) (0.11 - 0.59 K/mm3) 0.78 [...] - 8.0 pH UNITS) 6.0 Ur Specific [place] (1.001 - 1.035 SG) 1.032 Urine Protein [...] cardiopulmonary process.Impression By: NadiyaMKM4 - Igor Almonte, [facility] SCAN - CT HEAD/BRAIN W/O [...] evaluated for possible seizure episode. She is Trinidadian-speakingpatient only in central office worker was used. Patient denies to have any [...] initial diagnosis and related differentials with the patient/childcare attendant including RN. All concerns and questions are answered to the best of my abilities based on theavailable data.I have initiated the plan of care based on preliminary diagnosis,requested appopriate consultations with labs/imagings. Patient/childcare attendant verbalizes understanding of the plan of care. at 1501 RPT #:[id number] OF REPORTHPHistory and physical rjoqsstypkj7900-70-28L12:55:00B.FRCH99802666-0872 AVAvailable for patient llomZYUCSVCLBFVDZS6179-31-32Z45:01:[address] [facility] 2022-09-14 04:21:00 [id number] kVEJhLDNGMqulw6DjoLqf/CRltByW jugPnJdX4jEPtWpEBRDoX/UBkw70656-01-54K31:21:00 [facility] ([facility])EMERGENCY PROVIDER REPORTREPORT#:[id number] REPORT STATUS: SignedDATE:09/14/22 TIME: 420 PATIENT: BHUMIKA JONES UNIT #: [id number]#: [id number] [address] 47 SEX: F PCP PHYS: No [...] Complaint __ (needs help)Hx Obtained From Patient, Director Of Therapy Services Review of Systems ROS StatementsAll systems rev [...] % (Auto) (14.1 - 45.4 %) 33.6 [place] % (Auto) (2.5 - 11.7 %) 13.4 H Eos % (Auto) (0.0 - 6.2 %) 7.4 H Baso % (Auto) (0.0 - 2.1 %) 0.9 Gran # (2.0 - 13.7 k/mm3) 2.61 Lymph # (Auto) (0.6 - 3.8 K/mm3) 1.96 [place] # (Auto) (0.11 - 0.59 K/mm3) 0.78 [...] - 8.0 pH UNITS) 6.0 Ur Specific [place] (1.001 - 1.035 SG) 1.032 Urine Protein [...] radiographic evidence of acute cardiopulmonary process.Impression By: NadiyaMKMIvette - Igor Almonte MD Re-Evaluation MDM Free [...] 09/14 0407 DC 09/14 PO 09/15 407 0452 Risperidone 3 MG X1ED STA 09/14 [...] patient's second visit here at [facility] in the past 24 hours. Shecontinues [...] plan of care. at 0449 at 0540RPT #:[id number] OF REPORTEDEmergency department efigze5353-68-41F08:21:00B.TPGN96894033-3184ZQFdy ilable for patient vloaOMTDFTEBCEXWUH8444-81-57S50:49:[address] [facility] 2022-09-13 20:34:00 [id number] Z46modQzOSngbvi3TJOz0tzC8tbAd XeRAZYNQkvlmzgAQZ7yNeV85kfr2953-51-32Q24:34:00 [facility] ([facility])EMERGENCY PROVIDER REPORTREPORT#:[id number] REPORT STATUS: SignedDATE:09/13/22 TIME: 2033 PATIENT: BHUMIKA JONES UNIT #: [id number]#: [id number] ROOM/BED: [facility]-WAGE: 47 SEX: F PCP PHYS: No Primary or Family PhysicianSERVICE AUTHOR: Stephanie Bosch * ALL edits or amendments must be made on the electronic/computer document * Provider in Triage - Adult Provider in TriageInitial Greemy Date/Time 09/13/222017 Sarita DeleonI have greeted and [...] (RisperDAL) 3 MG PO DAILY at 1707RPT #:[id number] OF REPORTEDEmergency department wdnhnm3492-41-59M20:34:00B.RFIE01094890-0372MWDpv ilable for patient zbsrLSRFIKORBRKZPF2271-68-58O52:08:[address] [facility] 2022-09-13 09:58:00 [id number] EpaUvfpJbhA8JVZlpnlZSQHtBvhw8 hSHiBqVb4QvYUbSzgopCn9aA6gq7287-57-22V87:58:00 [facility] ([facility])EMERGENCY PROVIDER REPORTREPORT#:[id number] REPORT STATUS: SignedDATE:09/13/22 TIME: 957 PATIENT: BHUMIKA JONES UNIT #: [id number]#: [id number] ROOM/BED:AGE: 47 SEX: F PCP PHYS: No Primary or Family PhysicianSERVICE AUTHOR: Brad Woodall DO * ALL edits or amendments must be made on the electronic/computer document * HPI-General Illness Free Text HPI NotesFree Text HPI Wgwqt22-ptpg-mzq female past medical history epilepsy out of [...] - 8.0 pH UNITS) 6.0 Ur Specific [place] (1.001 - 1.035 SG) 1.024 Urine Protein [...] % (Auto) (14.1 - 45.4 %) 34.0 [place] % (Auto) (2.5 - 11.7 %) 10.1 Eos % (Auto) (0.0 - 6.2 %) 2.7 Baso % (Auto) (0.0 - 2.1 %) 0.7 Gran # (2.0 - 13.7 k/mm3) 3.04 Lymph # (Auto) (0.6 - 3.8 K/mm3) 1.98 [place] # (Auto) (0.11 - 0.59 K/mm3) 0.59 [...] 3 MG PO BEDTIME #30 TABS DIVALPROEX (GINA CALLES) 1,000 MG PO DAILY DIVALPROEX DR (DEPAKOTE ) 1,000 MG PO DAILY #60 TABS carBAMazepine [...] or a call to 911. at 1327RPT #:[id number] OF REPORTEDEmermercy hospital paris department cibate1453-28-68M48:58:00B.MOXU44859968-0990WTUbe ilable for patient avxoIHEYYHJCEAPMZZ1749-16-75I37:28:[address] [facility]
--- NOTE | 2023-08-17 16:49 | ER ---
Nurse's Notes [facility] Name: Sidra Hodges Age: 48 yrs Sex: Female : 1975 Arrival Date: 08/17/2023 Time: 16:23 Bed Waiting Private MD: Diagnosis: ED Course: 08/17 16:24 Patient arrived in ED. mr 16:31 Boris Olivera MD is Attending Physician. kdr 16:41 Patient's name was called from ER lobby. No response. cm10 16:47 Patient's name was called from ER lobby. Unable to locate patient. Will disposition as cm10 left without being seen by a provider. Administered Medications: No medications were administered Outcome: 16:48 Patient left the ED. cm10 Signatures: Boris Olivera MD MD [facility] Yanira Santa, [facility] Iris Sanders, RN RN cm10
--- NOTE | 2023-08-19 09:52 | EDPHYS ---
Physician Documentation [facility] Name: Sidra Hodges Age: 48 yrs Sex: Female : 1975 Arrival Date: 08/17/2023 Time: 16:23 Bed Waiting Private MD: ED Physician Boris Olivera HPI: 08/17 19:10 This 48 yrs old Female presents to ER via Unassigned with complaints of kdr Anxiety, Headache. 19:10 Patient left prior to being seen by provider. kdr 19:10 Patient commonly called EMS from where she lives to be transported to the hospital and kdr reportedly then leave shortly after EMS departs and goes to a local store for shopping.. Administered Medications: No medications were administered Disposition Summary: 08/17/23 16:48 Eloped Notes: Disposition: Before Triage cm10 Reason: unknown cm10 Signatures: Boris Olivera MD MD kdr Iris Perez RN RN cm10
== END ==
LOC: ER 16:23
DX: Z53.21 Procedure and treatment not carried out due to patient leaving prior to being seen by health care provider (principal)

== ENCOUNTER → 2023-08-21 | Emergency (ER) | payer SELFPAY ==
[~2023-08-21] MED LIST changes: -ASPIRIN 81 MG CHEWABLE TABLET ONE; +IBUPROFEN 200 MG TAB PO ONE
--- OUTSIDE RECORDS SUMMARY | 2023-08-21 10:14 | XMS REPORT | Continuity of Care Document ---
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 mg tablet 10-22 00:58: 10 Yes Take by mouth. [facility] divalproex ER (DEPAKOTE ER) 500 mg 24 hr tablet 10-22 00:58: 10 Yes 500mg Take 500 mg by mouth every 24 (twenty-fo ur) hours. [facility] OXcarbazepi ne (TRILEPTAL) 300 mg tablet 10-22 00:58: 10 Yes Take by mouth. [facility] divalproex ER (DEPAKOTE ER) 500 mg 24 hr tablet 10-22 00:58: 10 Yes 500mg Take 500 mg by mouth every 24 (twenty-fo ur) hours. [facility] OXcarbazepi ne (TRILEPTAL) 300 mg tablet 10-22 00:58: 10 Yes Take by mouth. [facility] divalproex ER (DEPAKOTE ER) 500 mg 24 hr tablet 10-22 00:58: 10 Yes 500mg Take 500 mg by mouth every 24 (twenty-fo ur) hours. [facility] OXcarbazepi ne (TRILEPTAL) 300 mg tablet 10-22 00:58: 10 Yes Take by mouth. [facility] ARIPiprazol e (ABILIFY) 2 mg tablet 10-21 19:58: 47 Yes 2mg Take 2 mg by mouth daily. [facility] ARIPiprazol e (ABILIFY) 2 mg tablet 10-21 19:58: 47 Yes 2mg Take 2 mg by mouth daily. [facility] ARIPiprazol e (ABILIFY) 2 mg tablet 10-21 19:58: 47 Yes 2mg Take 2 mg by mouth daily. [facility] ARIPiprazol e (ABILIFY) 2 mg tablet 10-21 19:58: 47 Yes 2mg Take 2 mg by mouth daily. [facility] ARIPiprazol e (ABILIFY) 2 mg tablet 10-21 19:58: 47 Yes 2mg Take 2 mg by mouth daily. [facility] ARIPiprazol e (ABILIFY) 2 mg tablet 10-21 19:58: 47 Yes 2mg Take 2 mg by mouth daily. [facility] ARIPiprazol e (ABILIFY) 2 mg tablet 10-21 19:58: 47 Yes 2mg Take 2 mg by mouth daily. [facility] ARIPiprazol e (ABILIFY) 2 mg tablet 10-21 19:58: 47 Yes 2mg Take 2 mg by mouth daily. [facility] ARIPiprazol e (ABILIFY) 2 mg tablet 10-21 19:58: 47 Yes 2mg Take 2 mg by mouth daily. [facility] ARIPiprazol e (ABILIFY) 2 mg tablet 10-21 19:58: 47 Yes 2mg Take 2 mg by mouth daily. [facility] ARIPiprazol e (ABILIFY) 2 mg tablet 10-21 19:58: 47 Yes 2mg Take 2 mg by mouth daily. [facility] ARIPiprazol e (ABILIFY) 2 mg tablet 10-21 19:58: 47 Yes 2mg Take 2 mg by mouth daily. [facility] ARIPiprazol e (ABILIFY) 2 mg tablet 10-21 19:58: 47 Yes 2mg Take 2 mg by mouth daily. [facility] ARIPiprazol e (ABILIFY) 2 mg tablet 10-21 19:58: 47 Yes 2mg Take 2 mg by mouth daily. [facility] ARIPiprazol e (ABILIFY) 2 mg tablet 10-21 19:58: 47 Yes 2mg Take 2 mg by mouth daily. [facility] divalproex ER (DEPAKOTE ER) 500 mg 24 hr tablet 10-21 19:58: 10 Yes 500mg Take 500 mg by mouth every 24 (twenty-fo ur) hours. [facility] OXcarbazepi ne (TRILEPTAL) 300 mg tablet 10-21 19:58: 10 Yes Take by mouth. [facility] divalproex ER (DEPAKOTE ER) 500 mg 24 hr tablet 10-21 19:58: 10 Yes 500mg Take 500 mg by mouth every 24 (twenty-fo ur) hours. [facility] OXcarbazepi ne (TRILEPTAL) 300 mg tablet 10-21 19:58: 10 Yes Take by mouth. [facility] divalproex ER (DEPAKOTE ER) 500 mg 24 hr tablet 10-21 19:58: 10 Yes 500mg Take 500 mg by mouth every 24 (twenty-fo ur) hours. [facility] OXcarbazepi ne (TRILEPTAL) 300 mg tablet 10-21 19:58: 10 Yes Take by mouth. [facility] divalproex ER (DEPAKOTE ER) 500 mg 24 hr tablet 10-21 19:58: 10 Yes 500mg Take 500 mg by mouth every 24 (twenty-fo ur) hours. [facility] OXcarbazepi ne (TRILEPTAL) 300 mg tablet 10-21 19:58: 10 Yes Take by mouth. [facility] divalproex ER (DEPAKOTE ER) 500 mg 24 hr tablet 10-21 19:58: 10 Yes 500mg Take 500 mg by mouth every 24 (twenty-fo ur) hours. [facility] OXcarbazepi ne (TRILEPTAL) 300 mg tablet 10-21 19:58: 10 Yes Take by mouth. [facility] divalproex ER (DEPAKOTE ER) 500 mg 24 hr tablet 10-21 19:58: 10 Yes 500mg Take 500 mg by mouth every 24 (twenty-fo ur) hours. [facility] OXcarbazepi ne (TRILEPTAL) 300 mg tablet 10-21 19:58: 10 Yes Take by mouth. [facility] divalproex ER (DEPAKOTE ER) 500 mg 24 hr tablet 10-21 19:58: 10 Yes 500mg Take 500 mg by mouth every 24 (twenty-fo ur) hours. [facility] OXcarbazepi ne (TRILEPTAL) 300 mg tablet 10-21 19:58: 10 Yes Take by mouth. [facility] divalproex ER (DEPAKOTE ER) 500 mg 24 hr tablet 10-21 19:58: 10 Yes 500mg Take 500 mg by mouth every 24 (twenty-fo ur) hours. [facility] OXcarbazepi ne (TRILEPTAL) 300 mg tablet 10-21 19:58: 10 Yes Take by mouth. [facility] divalproex ER (DEPAKOTE ER) 500 mg 24 hr tablet 10-21 19:58: 10 Yes 500mg Take 500 mg by mouth every 24 (twenty-fo ur) hours. [facility] OXcarbazepi ne (TRILEPTAL) 300 mg tablet 10-21 19:58: 10 Yes Take by mouth. [facility] divalproex [facility] (DEPAKOTE ER) 500 mg 24 hr tablet 10-21 19:58: 10 Yes 500mg Take 500 mg by mouth every 24 (twenty-fo ur) hours. [facility] OXcarbazepi ne (TRILEPTAL) 300 mg tablet 10-21 19:58: 10 Yes Take by mouth. [facility] divalproex ER (DEPAKOTE ER) 500 mg 24 hr tablet 10-21 19:58: 10 Yes 500mg Take 500 mg by mouth every 24 (twenty-fo ur) hours. [facility] OXcarbazepi ne (TRILEPTAL) 300 mg tablet 10-21 19:58: 10 Yes Take by mouth. [facility] divalproex ER (DEPAKOTE ER) 500 mg 24 hr tablet 10-21 19:58: 10 Yes 500mg Take 500 mg by mouth every 24 (twenty-fo ur) hours. [facility] OXcarbazepi ne (TRILEPTAL) 300 mg tablet 10-21 19:58: 10 Yes Take by mouth. [facility] divalproex ER (DEPAKOTE ER) 500 mg 24 hr tablet 10-21 19:58: 10 Yes 500mg Take 500 mg by mouth every 24 (twenty-fo ur) hours. [facility] OXcarbazepi ne (TRILEPTAL) 300 mg tablet 10-21 19:58: 10 Yes Take by mouth. [facility] divalproex ER (DEPAKOTE ER) 500 mg 24 hr tablet 10-21 19:58: 10 Yes 500mg Take 500 mg by mouth every 24 (twenty-fo ur) hours. [facility] OXcarbazepi ne (TRILEPTAL) 300 mg tablet 10-21 19:58: 10 Yes Take by mouth. [facility] divalproex ER (DEPAKOTE ER) 500 mg 24 hr tablet 10-21 19:58: 10 Yes 500mg Take 500 mg by mouth every 24 (twenty-fo ur) hours. [facility] OXcarbazepi ne (TRILEPTAL) 300 mg tablet 10-21 19:58: 10 Yes Take by mouth. [facility] naproxen (NAPROSYN) 500 mg tablet 10-21 00:00: 00 Yes 500mg Take 1 tablet by mouth 2 (two) times daily with meals. [facility] naproxen (NAPROSYN) 500 mg tablet 10-21 00:00: 00 Yes 500mg Take 1 tablet by mouth 2 (two) times daily with meals. [facility] naproxen (NAPROSYN) 500 mg tablet 10-21 00:00: 00 Yes 500mg Take 1 tablet by mouth 2 (two) times daily with meals. [facility] naproxen (NAPROSYN) 500 mg tablet 10-21 00:00: 00 Yes 500mg Take 1 tablet by mouth 2 (two) times daily with meals. [facility] naproxen (NAPROSYN) 500 mg tablet 10-21 00:00: 00 Yes 500mg Take 1 tablet by mouth 2 (two) times daily with meals. [facility] naproxen (NAPROSYN) 500 mg tablet 10-21 00:00: 00 Yes 500mg Take 1 tablet by mouth 2 (two) times daily with meals. [facility] naproxen (NAPROSYN) 500 mg tablet 10-21 00:00: 00 Yes 500mg Take 1 tablet by mouth 2 (two) times daily with meals. [facility] naproxen (NAPROSYN) 500 mg tablet 10-21 00:00: 00 Yes 500mg Take 1 tablet by mouth 2 (two) times daily with meals. [facility] naproxen (NAPROSYN) 500 mg tablet 10-21 00:00: 00 Yes 500mg Take 1 tablet by mouth 2 (two) times daily with meals. [facility] naproxen (NAPROSYN) 500 mg tablet 10-21 00:00: 00 Yes 500mg Take 1 tablet by mouth 2 (two) times daily with meals. [facility] naproxen (NAPROSYN) 500 mg tablet 10-21 00:00: 00 Yes 500mg Take 1 tablet by mouth 2 (two) times daily with meals. [facility] naproxen (NAPROSYN) 500 mg tablet 10-21 00:00: 00 Yes 500mg Take 1 tablet by mouth 2 (two) times daily with meals. [facility] naproxen (NAPROSYN) 500 mg tablet 10-21 00:00: 00 Yes 500mg Take 1 tablet by mouth 2 (two) times daily with meals. [facility] naproxen (NAPROSYN) 500 mg tablet 10-21 00:00: 00 Yes 500mg Take 1 tablet by mouth 2 (two) times daily with meals. [facility] naproxen (NAPROSYN) 500 mg tablet 10-21 00:00: 00 Yes 500mg Take 1 tablet by mouth 2 (two) times daily with meals. [facility] naproxen (NAPROSYN) 500 mg tablet 10-21 00:00: 00 Yes 500mg Take 1 tablet by mouth 2 (two) times daily with meals. [facility] naproxen (NAPROSYN) 500 mg tablet 10-21 00:00: 00 Yes 500mg Take 1 tablet by mouth 2 (two) times daily with meals. [facility] naproxen (NAPROSYN) 500 mg tablet 10-21 00:00: 00 Yes 500mg Take 1 tablet by mouth 2 (two) times daily with meals. [facility] naproxen (NAPROSYN) 500 mg tablet 10-21 00:00: 00 Yes 500mg Take 1 tablet by mouth 2 (two) times daily with meals. [facility] naproxen (NAPROSYN) 500 mg tablet 10-21 00:00: 00 Yes 500mg Take 1 tablet by mouth 2 (two) times daily with meals. [facility] naproxen (NAPROSYN) 500 mg tablet 10-21 00:00: 00 Yes 500mg Take 1 tablet by mouth 2 (two) times daily with meals. [facility] naproxen (NAPROSYN) 500 mg tablet 10-21 00:00: 00 Yes 500mg Take 1 tablet by mouth 2 (two) times daily with meals. [facility] ibuprofen 600 mg tablet 02-06 00:00: 00 Yes 600mg Take 1 tablet by mouth every 8 (eight) hours as needed for Pain (scale 4-6). [facility] ibuprofen 600 mg tablet 02-06 00:00: 00 Yes 600mg Take 1 tablet by mouth every 8 (eight) hours as needed for Pain (scale 4-6). [facility] ibuprofen 600 mg tablet 02-06 00:00: 00 Yes 600mg Take 1 tablet by mouth every 8 (eight) hours as needed for Pain (scale 4-6). [facility] ibuprofen 600 mg tablet 02-06 00:00: 00 Yes 600mg Take 1 tablet by mouth every 8 (eight) hours as needed for Pain (scale 4-6). [facility] ibuprofen 600 mg tablet 02-06 00:00: 00 Yes 600mg Take 1 tablet by mouth every 8 (eight) hours as needed for Pain (scale 4-6). [facility] ibuprofen 600 mg tablet 02-06 00:00: 00 Yes 600mg Take 1 tablet by mouth every 8 (eight) hours as needed for Pain (scale 4-6). [facility] ibuprofen 600 mg tablet 02-06 00:00: 00 Yes 600mg Take 1 tablet by mouth every 8 (eight) hours as needed for Pain (scale 4-6). [facility] ibuprofen 600 mg tablet 02-06 00:00: 00 Yes 600mg Take 1 tablet by mouth every 8 (eight) hours as needed for Pain (scale 4-6). [facility] ibuprofen 600 mg tablet 16 00:00: 00 05-05 00:00 :00 No 600mg Take 1 tablet by mouth every 8 (eight) hours as needed for Pain (scale 4-6). [facility] hydrocortis one 2.5 % rectal cream 2017-0 710 00:00: 00 Yes Insert into rectum 2 (two) times daily. [facility] hydrocortis one 2.5 % rectal cream 2017-0 710 00:00: 00 Yes Insert into rectum 2 (two) times daily. [facility] hydrocortis one 2.5 % rectal cream 2017-0 710 00:00: 00 Yes Insert into rectum 2 (two) times daily. [facility] hydrocortis one 2.5 % rectal cream 2017-0 710 00:00: 00 Yes Insert into rectum 2 (two) times daily. [facility] hydrocortis one 2.5 % rectal cream 2016-0 710 00:00: 00 Yes Insert into rectum 2 (two) times daily. [facility] hydrocortis one 2.5 % rectal cream 2017-0 710 00:00: 00 Yes Insert into rectum 2 (two) times daily. [facility] hydrocortis one 2.5 % rectal cream 2017-0 710 00:00: 00 Yes Insert into rectum 2 (two) times daily. [facility] hydrocortis one 2.5 % rectal cream 2016-0 710 00:00: 00 Yes Insert into rectum 2 (two) times daily. [facility] hydrocortis one 2.5 % rectal cream 2017-0 710 00:00: 00 Yes Insert into rectum 2 (two) times daily. [facility] hydrocortis one 2.5 % rectal cream 2017-0 710 00:00: 00 Yes Insert into rectum 2 (two) times daily. [facility] hydrocortis one 2.5 % rectal cream 2017-0 710 00:00: 00 Yes Insert into rectum 2 (two) times daily. [facility] hydrocortis one 2.5 % rectal cream 2017-0 710 00:00: 00 Yes Insert into rectum 2 (two) times daily. [facility] hydrocortis one 2.5 % rectal cream 2017-0 710 00:00: 00 Yes Insert into rectum 2 (two) times daily. [facility] hydrocortis one 2.5 % rectal cream 0 10 00:00: 00 Yes Insert into rectum 2 (two) times daily. [facility] hydrocortis one 2.5 % rectal cream 0 10 00:00: 00 Yes Insert into rectum 2 (two) times daily. [facility] hydrocortis one 2.5 % rectal cream 0 12-31 00:00: 00 Yes Insert into rectum 2 (two) times daily. [facility] hydrocortis one 2.5 % rectal cream 0 12-31 00:00: 00 Yes Insert into rectum 2 (two) times daily. [facility] hydro[facility]ort[facility] one 2.5 % rectal cream 0 12-31 00:00: 00 Yes Insert into rectum 2 (two) times daily. [facility] hydrocortis one 2.5 % rectal cream 0 12-31 00:00: 00 Yes Insert into rectum 2 (two) times daily. [facility] hydrocortis one 2.5 % rectal cream 2016-0 12-31 00:00: 00 Yes Insert into rectum 2 (two) times daily. [facility] hydrocortis one 2.5 % rectal cream 0 12-31 00:00: 00 Yes Insert into rectum 2 (two) times daily. [facility] hydrocortis one 2.5 % rectal cream 0 12-31 00:00: 00 Yes Insert into rectum 2 (two) times daily. [facility] hydro[facility]ortis one (ANUSOL-HC) 25 mg suppository 07-23 00:00: 00 Yes 25mg Insert 1 Suppositor y into rectum 2 (two) times daily. [facility] hydrocortis one (ANUSOL-HC) 25 mg suppository 07-23 00:00: 00 Yes 25mg Insert 1 Suppositor y into rectum 2 (two) times daily. [facility] hydrocortis one (ANUSOL-HC) 25 mg suppository 07-23 00:00: 00 Yes 25mg Insert 1 Suppositor y into rectum 2 (two) times daily. [facility] hydrocortis one (ANUSOL-HC) 25 mg suppository 07-23 00:00: 00 Yes 25mg Insert 1 Suppositor y into rectum 2 (two) times daily. [facility] hydrocortis one (ANUSOL-HC) 25 mg suppository 07-23 00:00: 00 Yes 25mg Insert 1 Suppositor y into rectum 2 (two) times daily. [facility] hydrocortis one (ANUSOL-HC) 25 mg suppository 07-23 00:00: 00 Yes 25mg Insert 1 Suppositor y into rectum 2 (two) times daily. [facility] hydrocortis one (ANUSOL-HC) 25 mg suppository 07-23 00:00: 00 Yes 25mg Insert 1 Suppositor y into rectum 2 (two) times daily. [facility] hydrocortis one (ANUSOL-HC) 25 mg suppository 07-23 00:00: 00 Yes 25mg Insert 1 Suppositor y into rectum 2 (two) times daily. [facility] hydrocortis one (ANUSOL-HC) 25 mg suppository 07-23 00:00: 00 Yes 25mg Insert 1 Suppositor y into rectum 2 (two) times daily. [facility] hydrocortis one (ANUSOL-HC) 25 mg suppository 07-23 00:00: 00 Yes 25mg Insert 1 Suppositor y into rectum 2 (two) times daily. [facility] hydrocortis one (ANUSOL-HC) 25 mg suppository 07-23 00:00: 00 Yes 25mg Insert 1 Suppositor y into rectum 2 (two) times daily. [facility] hydrocortis one (ANUSOL-HC) 25 mg suppository 07-23 00:00: 00 Yes 25mg Insert 1 Suppositor y into rectum 2 (two) times daily. [facility] hydrocortis one (ANUSOL-HC) 25 mg suppository 07-23 00:00: 00 Yes 25mg Insert 1 Suppositor y into rectum 2 (two) times daily. [facility] hydrocortis one (ANUSOL-HC) 25 mg suppository 07-23 00:00: 00 Yes 25mg Insert 1 Suppositor y into rectum 2 (two) times daily. [facility] hydrocortis one (ANUSOL-HC) 25 mg suppository 07-23 00:00: 00 Yes 25mg Insert 1 Suppositor y into rectum 2 (two) times daily. [facility] hydrocortis one (ANUSOL-HC) 25 mg suppository 07-23 00:00: 00 Yes 25mg Insert 1 Suppositor y into rectum 2 (two) times daily. [facility] hydrocortis one (ANUSOL-HC) 25 mg suppository 07-23 00:00: 00 Yes 25mg Insert 1 Suppositor y into rectum 2 (two) times daily. [facility] hydrocortis one (ANUSOL-HC) 25 mg suppository 07-23 00:00: 00 Yes 25mg Insert 1 Suppositor y into rectum 2 (two) times daily. [facility] hydrocortis one (ANUSOL-HC) 25 mg suppository 07-23 00:00: 00 Yes 25mg Insert 1 Suppositor y into rectum 2 (two) times daily. [facility] hydrocortis one (ANUSOL-HC) 25 mg suppository 07-23 00:00: 00 Yes 25mg Insert 1 Suppositor y into rectum 2 (two) times daily. [facility] hydrocortis one (ANUSOL-HC) 25 mg suppository 07-23 00:00: 00 Yes 25mg Insert 1 Suppositor y into rectum 2 (two) times daily. [facility] hydrocortis one (ANUSOL-HC) 25 mg suppository 07-23 00:00: 00 Yes 25mg Insert 1 Suppositor y into rectum 2 (two) times daily. [facility] Vital Signs Vital Name Observation Time Observation Value Comments S veronica Body height 2023-07-23 20:19:00 152.4 cm [facility] Body weight 2023-07-23 20:19:00 77.837 kg [facility] BMI 2023-07-23 20:19:00 33.51 kg/m2 [facility] Height 2022-11-04 14:04:00 149.86 CM Weight 2022-11-04 14:04:00 73.02 KG Systolic blood pressure 2022-09-24 17:32:00 130 mm[Hg] [facility] Diastolic blood pressure 2022-09-24 17:32:00 85 mm[Hg] [facility] Heart rate 2022-09-24 17:32:00 64 /min [facility] Body temperature 2022-09-24 17:32:00 36.83 [facility] Respiratory rate 2022-09-24 17:32:00 18 /min [facility] Body weight 2022-09-24 17:32:00 74.844 kg [facility] BMI 2022-09-24 17:32:00 33.33 kg/m2 [facility] Oxygen saturation in Arterial blood by Pulse oximetry 2022-09-24 17:32:00 99 /min [facility] Systolic blood pressure 2022-09-10 23:55:00 111 mm[Hg] [facility] Diastolic blood pressure 2022-09-10 23:55:00 84 mm[Hg] [facility] Heart rate 2022-09-10 23:55:00 105 /min [facility] Body temperature 2022-09-10 23:55:00 37.33 [facility] Respiratory rate 2022-09-10 23:55:00 19 /min [facility] Systolic blood pressure 2022-09-10 01:44:00 126 mm[Hg] [facility] Diastolic blood pressure 2022-09-10 01:44:00 81 mm[Hg] [facility] Heart rate 2022-09-10 01:44:00 78 /min [facility] Body temperature 2022-09-10 01:44:00 36.56 [facility] Respiratory rate 2022-09-10 01:44:00 16 /min [facility] Body weight 2022-09-10 01:44:00 79.379 kg [facility] BMI 2022-09-10 01:44:00 35.35 kg/m2 [facility] Oxygen saturation in Arterial blood by Pulse oximetry 2022-09-10 01:44:00 100 /min [facility] Systolic blood pressure 2022-09-07 05:37:00 119 mm[Hg] [facility] Diastolic blood pressure 2022-09-07 05:37:00 67 mm[Hg] [facility] Heart rate 2022-09-07 05:37:00 79 /min [facility] Respiratory rate 2022-09-07 05:37:00 16 /min [facility] Oxygen saturation in Arterial blood by Pulse oximetry 2022-09-07 05:37:00 98 /min [facility] Body temperature 2022-09-06 23:05:00 36.78 [facility] Body weight 2022-09-06 23:05:00 79.379 kg [facility] BMI 2022-09-06 23:05:00 35.35 kg/m2 [facility] Systolic blood pressure 2021-10-02 20:55:00 111 mm[Hg] [facility] Diastolic blood pressure 2021-10-02 20:55:00 70 mm[Hg] [facility] Heart rate 2021-10-02 20:55:00 79 /min [facility] Body temperature 2021-10-02 20:55:00 36.61 [facility] Respiratory rate 2021-10-02 20:55:00 18 /min [facility] Body height 2021-10-02 20:55:00 149.9 cm [facility] Body weight 2021-10-02 20:55:00 79.379 kg [facility] BMI 2021-10-02 20:55:00 35.35 kg/m2 [facility] Oxygen saturation in Arterial blood by Pulse oximetry 2021-10-02 20:55:00 100 /min [facility] Systolic blood pressure 2021-05-05 19:20:00 102 mm[Hg] [facility] Diastolic blood pressure 2021-05-05 19:20:00 48 mm[Hg] [facility] Heart rate 2021-05-05 19:20:00 68 /min [facility] Body temperature 2021-05-05 19:20:00 36.94 [facility] Respiratory rate 2021-05-05 19:20:00 18 /min [facility] Body weight 2021-05-05 19:20:00 79.379 kg [facility] BMI 2021-05-05 19:20:00 35.35 kg/m2 [facility] Oxygen saturation in Arterial blood by Pulse oximetry 2021-05-05 19:20:00 99 /min [facility] Systolic blood pressure 2019-12-15 22:12:00 138 mm[Hg] [facility] Diastolic blood pressure 2019-12-15 22:12:00 100 mm[Hg] [facility] Heart rate 2019-12-15 22:12:00 77 /min [facility] Body temperature 2019-12-15 22:12:00 37.06 [facility] Respiratory rate 2019-12-15 22:12:00 20 /min [facility] Body weight 2019-12-15 22:12:00 79.379 kg [facility] BMI 2019-12-15 22:12:00 35.35 kg/m2 [facility] Oxygen saturation in Arterial blood by Pulse oximetry 2019-12-15 22:12:00 100 /min [facility] Systolic blood pressure 2019-12-15 22:12:00 138 mm[Hg] [facility] Diastolic blood pressure 2019-12-15 22:12:00 100 mm[Hg] [facility] Heart rate 2019-12-15 22:12:00 77 /min [facility] Body temperature 2019-12-15 22:12:00 37.06 [facility] Respiratory rate 2019-12-15 22:12:00 20 /min [facility] Body weight 2019-12-15 22:12:00 79.379 kg [facility] BMI 2019-12-15 22:12:00 35.35 [facility] in Arterial blood by Pulse oximetry 2019-12-15 22:12:00 100 /min [facility] Respiratory rate 2019-10-25 23:43:00 18 /min [facility] Body weight 2019-10-25 23:43:00 83.915 kg [facility] BMI 2019-10-25 23:43:00 37.37 kg/m2 [facility] Respiratory rate 2019-10-25 23:43:00 18 /min [facility] Body weight 2019-10-25 23:43:00 83.915 kg [facility] BMI 2019-10-25 23:43:00 37.37 kg/m2 [facility] Systolic blood pressure 2019-08-13 19:25:00 123 mm[Hg] [facility] Diastolic blood pressure 2019-08-13 19:25:00 88 mm[Hg] [facility] Heart rate 2019-08-13 19:25:00 78 /min [facility] Body temperature 2019-08-13 19:25:00 36.56 [facility] Respiratory rate 2019-08-13 19:25:00 18 /min [facility] Body height 2019-08-13 19:25:00 149.9 cm [facility] Body weight 2019-08-13 19:25:00 90.719 kg [facility] BMI 2019-08-13 19:25:00 40.40 kg/m2 [facility] Oxygen saturation in Arterial blood by Pulse oximetry 2019-08-13 19:25:00 100 /min [facility] Systolic blood pressure 2019-08-13 19:25:00 123 mm[Hg] [facility] Diastolic blood pressure 2019-08-13 19:25:00 88 mm[Hg] [facility] Heart rate 2019-08-13 19:25:00 78 /min [facility] Body temperature 2019-08-13 19:25:00 36.56 [facility] Respiratory rate 2019-08-13 19:25:00 18 /min [facility] Body height 2019-08-13 19:25:00 149.9 cm [facility] Body weight 2019-08-13 19:25:00 90.719 kg [facility] BMI 2019-08-13 19:25:00 40.40 kg/m2 [facility] Oxygen saturation in Arterial blood by Pulse oximetry 2019-08-13 19:25:00 100 /min [facility] Systolic blood pressure 2019-07-23 00:20:15 120 mm[Hg] [facility] Diastolic blood pressure 2019-07-23 00:20:15 74 mm[Hg] [facility] Heart rate 2019-07-23 00:20:15 82 /[facility] 2019-07-23 00:20:15 19 /min [facility] Oxygen saturation in Arterial blood by Pulse oximetry 2019-07-23 00:20:15 100 /min [facility] Body temperature 2019-07-22 19:41:00 36.33 [facility] Body weight 2019-07-22 19:39:00 90.719 kg [facility] BMI 2019-07-22 19:39:00 39.06 kg/m2 [facility] Systolic blood pressure 2019-07-23 00:20:15 120 mm[Hg] [facility] Diastolic blood pressure 2019-07-23 00:20:15 74 mm[Hg] [facility] Heart rate 2019-07-23 00:20:15 82 /min [facility] Respiratory rate 2019-07-23 00:20:15 19 /min [facility] Oxygen saturation in Arterial blood by Pulse oximetry 2019-07-23 00:20:15 100 /min [facility] Body temperature 2019-07-22 19:41:00 36.33 [facility] Body weight 2019-07-22 19:39:00 90.719 kg [facility] BMI 2019-07-22 19:39:00 39.06 kg/m2 [facility] Systolic blood pressure 2019-07-14 03:33:00 127 mm[Hg] [facility] Diastolic blood pressure 2019-07-14 03:33:00 88 mm[Hg] [facility] Heart rate 2019-07-14 03:33:00 79 /min [facility] Respiratory rate 2019-07-14 03:33:00 16 /min [facility] Oxygen saturation in Arterial blood by Pulse oximetry 2019-07-14 03:33:00 97 /min [facility] Body weight 2019-07-14 02:16:00 90.719 kg [facility] BMI 2019-07-14 02:16:00 39.06 kg/m2 [facility] Body temperature 2019-07-14 02:15:00 36.78 [facility] Body weight 2019-07-10 20:39:00 90.719 kg [facility] BMI 2019-07-10 20:39:00 39.06 kg/m2 [facility] Systolic blood pressure 2019-01-21 23:34:00 133 mm[Hg] [facility] Diastolic blood pressure 2019-01-21 23:34:00 78 mm[Hg] [facility] Heart rate 2019-01-21 23:34:00 66 /min [facility] Body temperature 2019-01-21 23:34:00 36.94 [facility] Respiratory rate 2019-01-21 23:34:00 18 /min [facility] Body height 2019-01-21 23:34:00 147.3 cm [facility] Body weight 2019-01-21 23:34:00 68.04 kg [facility] BMI 2019-01-21 23:34:00 31.35 kg/m2 [facility] Oxygen saturation in Arterial blood by Pulse oximetry 2019-01-21 23:34:00 100 /min [facility] Systolic blood pressure 2019-01-21 23:34:00 133 mm[Hg] [facility] Diastolic blood pressure 2019-01-21 23:34:00 78 mm[Hg] [facility] Heart rate 2019-01-21 23:34:00 66 /min [facility] Body temperature 2019-01-21 23:34:00 36.94 [facility] Respiratory rate 2019-01-21 23:34:00 18 /min [facility] Body height 2019-01-21 23:34:00 147.3 cm [facility] Body weight 2019-01-21 23:34:00 68.04 kg [facility] BMI 2019-01-21 23:34:00 31.35 kg/m2 [facility] Oxygen saturation in Arterial blood by Pulse oximetry 2019-01-21 23:34:00 100 /min [facility] Procedures Procedure Date / Time Performed Performing Clinician Source ASSIGNMENT OF BENEFITS 2023-07-23 18:45:32 Docto r Unassigned, [place] [facility] REFERRAL- REQUEST/RESPONSE 2023-06-05 06:01:00 Doctor Unassigned, [place] [facility] REFERRAL- REQUEST/RESPONSE 2023-05-20 06:01:00 Doctor Unassigned, [place] [facility] COMP. METABOLIC PANEL ([id number]) 2022-09-07 01:38:00 Tayo Boyd [facility] CBC WITH DIFF 2022-09-07 01:38:00 [facility] URINALYSIS 2022-09-07 01:38:00 [facility] <3 VW LEFT 2022-09-07 00:56:00 Tayo Boyd [facility] XR FOOT <3 VW LEFT 2022-09-07 00:56:00 Tayo Boyd [facility] CONSENT/REFUSAL FOR DIAGNOSIS AND TREATMENT 2022-09-06 22:08:37 Doctor Unassigned, [place] [facility] CT CERVICAL SPINE WO CONTRAST 2021-10-02 21:53:00 Javed Frank [facility] CT LUMBAR SPINE WO CONTRAST 2021-10-02 21:53:00 Javed Frank [facility] CT THORACIC SPINE WO CONTRAST 2021-10-02 21:53:00 Javed Frank [facility] XR FOREARM 2 VW RIGHT 2021-05-05 20:03:34 Jose Carlos Nunez [facility] XR WRIST 3+ VW RIGHT 2021-05-05 20:03:34 Chino Nunez [facility] NOTICE OF PRIVACY PRACTICES 2021-05-05 19:12:00 Doctor Unassigned, [place] [facility] CONSENT/REFUSAL FOR DIAGNOSIS AND TREATMENT 2021-05-05 19:11:19 Doctor Unassigned, [place] [facility] CONSENT/REFUSAL FOR DIAGNOSIS AND TREATMENT 2019-08-13 19:17:22 Doctor Unassigned, [place] [facility] CT HEAD WO CONTRAST 2019-07-22 22:24:37 Rachel Samayoa [facility] XR CERVICAL SPINE 2 VW 2019-07-22 21:59:59 Samantha Samayoa [facility] CBC WITH DIFFERENTIAL 2019-07-22 21:34:00 Yanira Samayoa [facility] XR CERVICAL SPINE 2 VW 2019-07-14 02:43:00 Ivory Owen [facility] XR ELBOW <3 VW LEFT 2019-07-14 02:43:00 Henry Owen [facility] XR KNEE <3 VW RIGHT 2019-07-14 02:43:00 Henry Owen [facility] XR SHOULDER <2 VW LEFT 2019-07-14 02:43:00 Ivory Owen [facility] Encounters Start Date/Time End Date/Time Encounter Type Admission Type Attending [facility] Care Facility Care Department Encounter ID Source 2022-11-13 13:10:28 Inpatient [facility] [id number] [facility] 2022-11-05 09:23:13 Inpatient [facility] [id number] [facility] 2023-08-01 10:00:49 2023-08-01 10:00:49 Outpatient ANUP HEBERT [id number] Henry Contreras 2023-07-23 14:20:00 2023-07-23 16:57:02 Outpatient R TAPANINDIOLinda [facility] [id number] [facility] 2023-07-23 14:20:00 2023-07-23 16:57:02 Office Visit [place] see [facility] 1..840.114 350.1.13.10 4.2.7.2.686 [id number] [facility] 2023-07-23 00:00:00 2023-07-23 00:00:00 Orders Only Doctor Unassigned, [place] [facility] 1.840.114 350.1.13.10 4.2.7.2.686 [id number] [facility] 2023-07-04 16:48:23 2023-07-04 16:48:23 Outpatient [facility] [id number] Hnery Contreras 2023-06-18 10:35:36 2023-06-18 10:35:36 Outpatient [facility] [id number] Henry Contreras 2023-06-05 00:00:00 2023-06-05 00:00:00 Orders Only Doctor Unassigned, [place] [facility] 1.840.114 350.1.13.10 4.2.7.2.686 [id number] [facility] 2023-06-04 16:00:39 2023-06-04 16:00:39 Outpatient [facility] [id number] Henry Quiles Ben 2023-05-24 15:38:52 2023-05-24 15:38:52 Outpatient [facility] [id number] Henry Quiles Ben 2023-05-22 00:00:00 2023-05-22 00:00:00 Letter (Out) Neurology [facility] 1..840.114 350.1.13.10 4.2.7.2.686 [id number] [facility] 2023-05-20 00:00:00 2023-05-20 00:00:00 Orders Only Doctor Unassigned, [place] [facility] 1.2.840.114 350.1.13.10 4.2.7.2.686 [id number] [facility] 2023-05-17 15:07:14 2023-05-17 15:07:14 Outpatient [facility] [id number] Henry Quiles Rindge 2023-03-02 12:27:43 2023-03-02 12:27:43 Outpatient [facility] [id number] Henry Quiles Rindge 2023-01-09 17:11:26 2023-01-09 17:11:26 Outpatient [facility] [id number] Henry Quiles Ben 2022-11-04 14:04:00 2022-11-05 11:09:00 [address] E JESS PAIGE [facility] [id number] [facility] 2022-09-24 12:33:00 2022-09-24 12:51:00 Emergency Heri Snow [facility] 1.2.840.114 350.1.13.10 4.2.7.2.686 [id number] [facility] 2022-09-22 00:00:00 2022-09-22 00:00:00 Nurse Triage Madhavi Mcginnis [facility] 1.2.840.114 350.1.13.10 4.2.7.2.686 [id number] [facility] 2022-09-18 10:09:00 2022-09-19 14:28:00 Inpatient EM Marly Mendenhall [facility] OBSE [id number] 25 [facility] 2022-09-16 22:50:00 2022-09-17 01:40:00 Emergency EM GueroMandeepy [facility] FABI [id number] [facility] 2022-09-14 14:52:00 2022-09-15 14:00:00 Inpatient EM Vladimir Forbes [facility] TELE [id number] 75 [facility] 2022-09-13 09:34:00 2022-09-13 13:00:00 Emergency EM Brad Woodall [facility]ABI [id number] 75 [facility] 2022-09-10 23:39:00 2022-09-11 11:28:00 Emergency EM Russel Sewell [facility] [id number] [facility] 2022-09-10 18:57:00 2022-09-10 20:20:00 Emergency Lisa Morfin [facility] 1..840.114 350.1.13.10 4.2.7.2.686 [id number] [facility] 2022-09-10 18:57:00 2022-09-10 20:20:00 Emergency X SANDRITA KEY [facility] ERT [id number] [facility] 2022-09-09 20:45:00 2022-09-09 22:46:00 Emergency X SANDRITA KEY [facility] ERT [id number] [facility] 2022-09-09 20:45:00 2022-09-09 22:46:00 Emergency Sandrita Key [facility] 1..840.114 350.1.13.10 4.2.7.2.686 [id number] [facility] 2022-09-06 18:09:00 2022-09-07 00:51:00 Emergency X TAYO BOYD [facility] ERT [id number] [facility] 2022-09-06 18:09:00 2022-09-07 00:51:00 Emergency Tayo Boyd [facility] 1..840.114 350.1.13.10 4.2.7.2.686 [id number] [facility] 2022-08-21 14:11:33 2022-08-21 14:11:33 Outpatient [facility] [id number] Henry Contreras 2022-07-17 15:03:48 2022-07-17 15:03:48 Outpatient [facility] [id number] Henry Contreras 2021-10-02 15:56:00 2021-10-02 19:00:00 Emergency X JAVED FRANK [facility] ERT [id number] [facility] 2021-10-02 15:56:00 2021-10-02 19:00:00 Emergency Javed Frank [facility] 1.2.840.114 350.1.13.10 4.2.7.2.686 [id number] [facility] 2021-05-05 13:22:00 2021-05-05 14:48:00 Emergency X DEON NUNEZ [facility] ERT [id number] [facility] 2021-05-05 13:22:00 2021-05-05 14:48:00 Emergency Deon Nunez [facility] 1.2.840.114 350.1.13.10 4.2.7.2.686 [id number] [facility] 2021-05-05 00:00:00 2021-05-05 00:00:00 Orders Only Doctor Unassigned, [place] [facility] 1.2.840.114 350.1.13.10 4.2.7.2.686 [id number] [facility] 2019-12-15 17:11:56 2019-12-15 18:04:00 Emergency Kp Gilliland [facility] 1.2.840.114 350.1.13.10 4.2.7.2.686 [id number] 2019-12-15 17:11:56 2019-12-15 18:04:00 [facility] 1.2.840.114 350.1.13.10 4.2.7.2.686 [id number] [facility] 2019-12-15 17:11:56 2019-12-15 17:11:56 Emergency X Kp GILLILAND [facility] ERT [id number] [facility] 2019-10-25 18:31:31 2019-10-25 19:21:00 Emergency Kristin Miller [facility] 1.2.840.114 350.1.13.10 4.2.7.2.686 [id number] 2019-10-25 18:31:31 2019-10-25 19:21:00 Emergency Kristin Miller [facility] 1.2.840.114 350.1.13.10 4.2.7.2.686 [id number] [facility] 2019-10-25 18:31:31 2019-10-25 18:31:31 Emergency X KRISTIN MILLER [facility] ERT [id number] [facility] 2019-08-13 13:30:00 2019-08-13 14:36:00 Emergency Floridalma Evans [facility] 1.2.840.114 350.1.13.10 4.2.7.2.686 [id number] 2019-08-13 13:30:00 2019-08-13 14:36:00 Emergency Floridalma Evans [facility] 1.2.840.114 350.1.13.10 4.2.7.2.686 [id number] [facility] 2019-08-13 13:30:00 2019-08-13 14:36:00 Emergency X FLORIDALMA EVANS [facility] ERT [id number] [facility] 2019-07-22 13:42:11 2019-07-22 19:02:00 Emergency Unknown, Attending Lisa Morfin [facility] 1.2.840.114 350.1.13.10 4.2.7.2.686 [id number] 2019-07-22 13:42:11 2019-07-22 19:02:00 Emergency X LISA MORFIN [facility] ERT [id number] [facility] 2019-07-22 13:42:11 2019-07-22 19:02:00 Emergency Unknown, Attending Lisa Morfin [facility] 1.2.840.114 350.1.13.10 4.2.7.2.686 [id number] [facility] 2019-07-13 20:17:19 2019-07-13 21:48:00 Emergency X HENRY OWEN [facility] ERT [id number] [facility] 2019-07-13 20:17:19 2019-07-13 21:48:00 Emergency Henry Owen [facility] 1.2.840.114 350.1.13.10 4.2.7.2.686 [id number] [facility] 2019-07-10 14:26:03 2019-07-10 16:33:00 Emergency X JOANNE PAYTONRA [facility] ERT [id number] [facility] 2019-07-10 14:26:03 2019-07-10 16:33:00 Emergency Debbie Payton Holley [facility] 1.2.840.114 350.1.13.10 4.2.7.2.686 [id number] [facility] 2019-07-04 19:09:02 2019-07-04 22:51:00 Emergency X LISA MORFIN [facility] ERT [id number] [facility] 2019-06-30 10:33:08 2019-06-30 13:10:00 Emergency X DEON NUNEZ [facility] ERT [id number] [facility] 2019-05-25 11:58:19 2019-05-25 15:37:00 Emergency X DEON NUNEZ [facility] ERT [id number] [facility] 2019-04-09 22:29:37 2019-04-09 23:28:00 Emergency X FLORIDALMA EVANS [facility] ERT [id number] [facility] 2019-01-21 18:38:01 2019-01-21 19:59:00 Emergency Le Ramirez [facility] 1.2.840.114 350.1.13.10 4.2.7.2.686 [id number] 2019-01-21 18:38:01 2019-01-21 19:59:00 Emergency Le Ramirez [facility] 1.2.840.114 350.1.13.10 4.2.7.2.686 [id number] [facility] Results Test Description Test Time Test Comments Results Result Co mments Source TSH, THIRD [id number] 23:53:27* Test Item Value Reference Range Interpretation Comme nts TSH, THIRD GENERATION (test code = 2821) 11.100 UIU/ML 0.400-4.100 H COMPREHENSIVE METABOLIC [id number] 23:46:03* Test Item Value Reference Range Interpretation Comme nts GLUCOSE (test code = 2217) 97 MG/DL 70-99 BUN (test code = 2208) 7 MG/DL 6-20 CREATININE (test code = 2214) 0.61 MG/DL 0.60-1.30 eGFR (2020 CKD-EPI) (test code = 00156) 110 ML/MIN/1.73 >60 CALC BUN/CREAT (test code [...] 13 U/L 5-40 CBC W/AUTO DIFF WITH [id number] 08:48:44* Test Item Value Reference Range Interpretation [...] 0.00-0.10 ABS NUCLEATED RBCS (test code = 02035) 0.00 K/UL 0.00-0.11 UNLESS OTHER MONTOYA INDICATED, ALL TESTING PERFORMED AT [facility] [address] [place] [address] CLIENT REPORTING ASSOCIATE: JATIN FELIPE M.D. CLIA NUMBER [id number] [place]. [id number] 01:13:06* Test Item Value Reference Range Interpretation Comme nts TRANSFERRIN (test code = 4936) 315 MG/DL 200-360 UNLESS OTHERWISE INDICATED, ALL TESTING PERFORMED AT [facility] [address] [place] [address] CLIENT REPORTING ASSOCIATE: JATIN FELIPE M.D. CLIA NUMBER [id number] [place] [id number] LIPID [id number] 01:12:48* Test Item Value Reference Range Interpretation [...] = 2238) 1.34 RATIO <3.22 COMPREHENSIVE METABOLIC [id number] 01:12:48* Test Item Value Reference Range Interpretation Comme nts GLUCOSE (test code = 2217) 92 MG/DL 70-99 BUN (test code = 2208) 15 MG/DL 6-20 CREATININE (test code = 2214) 0.65 MG/DL 0.60-1.30 eGFR (2020 CKD-EPI) (test code = 91699) 108 ML/MIN/1.73 >60 CALC BUN/CREAT (test code [...] IRON BINDING CAPACITY AND IRON AND % [id number] 01:12:48* Test Item Value Reference Range Interpretation Comme nts IRON, SERUM (test code = 222) 51 UG/DL 37-145 UNSATURATED IBC (test code = 42009) 356 UG/DL 112-347 H CALC TOTAL IBC (test code = 2076) 407 UG/DL 250-450 CALC % IRON SAT (test code = 2078) 13 % 20-50 L [id number] 00:59:24* Test Item Value Reference Range Interpretation Comme nts FERRITIN (test code = 2074) 20 NG/ML 13-200 HEMOGLOBIN [id number] 03:08:40* Test Item Value Reference Range Interpretation Comme nts HEMOGLOBIN A1c (test code = 30035) 5.5 % 4.2-5.6 CBC W/AUTO DIFF WITH [id number] 02:29:36* Test Item Value Reference Range Interpretation [...] 0.00-0.10 ABS NUCLEATED RBCS (test code = 39416) 0.00 K/UL 0.00-0.11 DRUGS OF [id number] 05:03:00* Test Item Value Reference Range Interpretation Comme [facility] DRUG SCRN (test code = HDOA) URINE [...] 200 ng/mL Opiates 300 ng/mL URINALYSIS WITH [id number] 04:56:00* Test Item Value Reference Range Interpretation [...] (test code = USPERM) /HPF NONE URINE [id number] 04:53:00* Test Item Value Reference Range Interpretation [...] the FDA and the [employer] (CAP) are more stringent than those required for this test. Therefore, the result should be interpreted with caution and close attention to other clinical and epidemiological data [id number] 16:00:00* Test Item Value Reference Range Interpretation Comme nts SALICYLATE (test code = 94B) <3.0 mg/dL 15.0-30.0 L LIVER [id number] 15:49:00* Test Item Value Reference Range Interpretation [...] code = 31A) <7 IU/L 10-49 L [id number] 15:48:00* Test Item Value Reference Range Interpretation [...] to interpret this result as normal/abnormal. 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 Old healed fractures of the distal tibia and fibular noted.Soft tissues: Unremarkable.IMPRESSION: No acute findings.Electronically signed by: Nikko Santiago MD 11/04/2022 3:10 PM CDT [id number] BEDSIDE [id number] 11:51:00* Test Item Value Reference Range Interpretation Comme nts GLUCOSE BEDSIDE TESTING (karen t code = GLUBED) 79 MG/DL 70-119 N GLUCOSE BEDSIDE [id number] 06:23:00* Test Item Value Reference Range Interpretation Comme nts GLUCOSE BEDSIDE TESTING (karen t code = GLUBED) 80 MG/DL 70-119 N BASIC METABOLIC [id number] 05:12:00* Test Item Value Reference Range Interpretation [...] <2.0 indicates None DetectedPerformed At: [facility] [address] [id number] Michael Reeves MD Ph:[phone] GLUCOSE BEDSIDE [id number] 19:51:00* Test Item Value Reference Range Interpretation Comme nts GLUCOSE BEDSIDE TESTING (karen t code = GLUBED) 129 MG/DL 70-119 H OSMOLALITY [id number] 17:56:00* Test Item Value Reference Range Interpretation Comme nts OSMOLALITY SERUM (test code = OSMO) 269 mOsm/kg 275-300 L THYROID STIMULATING [id number] 17:56:00* Test Item Value Reference Range Interpretation Comme nts THYROID STIMULATING HORMONE (test code = TSH) 4.190 mc IU/ML 0.340-4.820 N GLUCOSE BEDSIDE [id number] 15:49:00* Test Item Value Reference Range Interpretation [...] code = VALP) 37.5 mcG/ML 50.0-100.0 L [id number] 14:26:00* Test Item Value Reference Range Interpretation Comme nts AMMONIA (test code = AMM) 29.0 mcMOL/L 11.0-32.0 N GLUCOSE BEDSIDE [id number] 11:51:00* Test Item Value Reference Range Interpretation Comme nts GLUCOSE BEDSIDE TESTING (karen t code = GLUBED) 88 MG/DL 70-119 N GLYCOSYLATED HEMOGLOBIN (HA1C)2022-09-18 06:53:00* Test Item Value Reference Range Interpretation Comme nts GLYCOSYLATED HEMOGLOBIN (HA1 C) (test code = GLYHGB) 5.2 % IS-A1C 4.5-5.6 N ESTIMATED AVERAGE [id number] 06:53:00* Test Item Value Reference Range Interpretation [...] to interpret this result as normal/abnormal. UR QOPHDEVYDQVY9438-42-01 21:28:00* Test Item Value Reference Range Interpretation Comme nts UR SODIUM RANDOM (test code = JESUSITA) 93 mmol/L 40-200 N UR POTASSIUM RANDOM (test code = KU) 54.8 mmol/L 25-125 N NO ESTABLISHED NORMAL RANGES FOR RANDOM SPECIMENS. UR CHLORIDE RANDOM (test code = CLU) 164 mmol/L 110-150 H UR OSMOLALITY [id number] 21:28:00* Test Item Value Reference Range Interpretation Comme nts UR OSMOLALITY RANDOM (test c ode = OSMOU) 475 mOsm/kg 100-1400 N CBC W/O [id number] 20:05:00* Test Item Value Reference Range Interpretation [...] = MPV) 9.5 fL 6.8-11.2 N LACTIC [id number] 19:35:00* Test Item Value Reference Range Interpretation Comme nts LACTIC ACID (test code = LACT) 1.0 mmol/L 0.4-2.0 N HCG SERUM [id number] 19:31:00* Test Item Value Reference Range Interpretation Comme nts HCG SERUM QUAL (test code = HCGQL) Negative SCREEN NEG - CT HEAD/BRAIN W/O [id number] 18:59:00 [facility] : 1975 Sex: F Patient Name: BHUMIKA JONES Unit No: [id number] EXAMS: CPT CODE: [id number] CT HEAD/BRAIN W/O CONT 59961 Location: H3 CT head, conducted on 09/17/22 at 1837 hours COMPARISON EXAMS:Head CT exam of 09/17/22 at 00:06 hours TECHNIQUE: CT examination of the brain was performed without contrast on [facility] scanner. Scanning conducted from skull base [...] MD Dictated Date/Time: 09/17/2022 (1858) Technologist: VERO Marei(Abner)(CT) CTDI: DLP: Trnscrpt: 09/17/2022 (1859) CliffordR.[email or web address] DENIZ Lugo NAME: ROBERT [address] PHYS: Valentina [place] [address] : 1975 AGE: 47 SEX: F LOC: MITCHELLED 20 PHONE #: [phone] EXAM DATE: 09/17/2022 STATUS: ADM IN FAX #: [phone] RAD #: D/C DT PAGE 1 Signed Report Patient Name: SILAS JONESPCION Unit No: [id number] EXAMS: CPT CODE: [id number] CT HEAD/BRAIN W/O CONT 11977 (Continued) Orig Print D/T: S: 09/17/2022 (190) DENIZ Lugo NAME: ROBERT[address] PHYS: Valentina [place] [address] : 1975 AGE: 47 SEX: F LOC: B.ERMED 20 PHONE #: [phone] EXAM DATE: 09/17/2022 STATUS: ADM IN FAX #: [phone] RAD #: D/C DT PAGE 2 Signed ReportURINALYSIS OSTNZTUF9261-16-27 16:28:00* Test Item Value Reference Range Interpretation [...] >0 /UL NONE-SQepi DRUGS OF ABUSE SCREEN [id number] 16:28:00* Test Item Value Reference Range Interpretation [...] interpret this result as normal/abnormal. TROP-I HIGH BCMWXSQFOOA0879-90-15 16:26:00* Test Item Value Reference Range Interpretation [...] and URLs may vary bymethod. BASIC METABOLIC [id number] 16:25:00* Test Item Value Reference Range Interpretation [...] interpret this result as normal/abnormal. HEPATIC FUNCTION [id number] 16:25:00* Test Item Value Reference Range Interpretation [...] ode = CK) 92 Unit/L 26-192 N [id number] 16:25:00* Test Item Value Reference Range Interpretation Comme nts LIPASE (test code = LIP) 57 Unit/L 114-286 L - CT HEAD/BRAIN W/O [id number] 00:32:00 [facility] BHUM[facility]A JONES : 1975 Sex: F Patient Name: BHUMIKA JONES Unit No: [id number] EXAMS: CPT CODE: [id number] CT HEAD/BRAIN W/O CONT 25884 EXAM: - CT HEAD/BRAIN W/O CONT LOCATION: [...] Trnscrpt: 09/17/2022 (31) Azael.[email or web address] DENIZ Lugo NAME: ROBERT[address] PHYS: YASMIN - Asim Jack [place] [address] : 1975 AGE: 47 SEX: F LOC: GregorioERS PHONE #: [phone] EXAM DATE: 09/16/2022 STATUS: REG ER FAX #: [phone] RAD #: D/C DT PAGE 1 Signed Report Patient Name: BHUMIKA JONES Unit No: [id number] EXAMS: CPT CODE: [id number] CT HEAD/BRAIN W/O CONT 35028 (Continued) Orig Print D/T: S: 09/17/2022 (0035) DENIZ Lugo NAME: SILAS JONES[address] PHYS: YASMIN Santiago [place] [address] : 1975 AGE: 47 SEX: F LOC: B.ERS PHONE #: [phone] EXAM DATE: 09/16/2022STATUS: REG ER FAX #: [phone] RAD #: D/C DT PAGE 2 Signed Report TROP-I HIGH QTWYOXSPNIJ6546-31-23 00:13:00* Test Item Value Reference Range Interpretation [...] and URLs may vary bymethod. COMPREHENSIVE METABOLIC [id number] 00:11:00* Test Item Value Reference Range Interpretation [...] interpret this result as normal/abnormal. CBC W/AUTO [id number] 23:59:00* Test Item Value Reference Range Interpretation [...] K/mm3 0.0-0.05 N - XR CHEST 1 [id number] 23:34:00 [facility] BHUM[facility] JON[facility] : 1975 [place]: [place]: E St: PRE -- Patient Name: BHUMIKA JONES Unit No: [id number] EXAMS: CPT CODE: [id number] XR CHEST 1 V 61277 EXAMINATION: - XR CHEST 1 V CLINICAL [...] By: NadiyaJH12 Orig Print D/T: S: 09/16/2022 (4976) DENIZ Lugo NAME: BHUMIKA JONES [address] [place] [address] PHYS: [email or web address].[email or web address] - Asim Jack MD, [place] [address] : 1975 AGE: 47 SEX: F LOC: MARCOS PHONE #: [phone] EXAM DATE: 09/16/2022 STATUS: PRE ER FAX #: [phone] RAD NO: DC Dt: PAGE 1 Signed ReportCARBAMAZEPINE (TEGRETOL) 2022-09-15 06:12:00* Test Item Value Reference Range Interpretation Comme nts CARBAMAZEPINE (TEGRETOL) (test code = CARB) 1.5 ug/mL 4.0-12.0 L In conjunction w ith other antiepileptic drugs Therapeutic 4.0 - 8.0 Toxicity 9.0 - 12.0 Carbamazepine alone Therapeutic 8.0 - 12.0 Detection Limit = 2.0 <2.0 indicates None DetectedPerformed At: [facility] [address] [id number] Michael Reeves MD Ph:[phone] VALPROIC ACID (DEPAKENE)2022-09-15 06:12:00* Test Item Value Reference Range Interpretation Comme nts VALPROIC ACID (DEPAKENE) (te st code = VALP) 80.6 mcG/ML 50.0-100.0 N COMPREHENSIVE METABOLIC [id number] 06:00:00* Test Item Value Reference Range Interpretation [...] interpret this result as normal/abnormal. CBC W/AUTO [id number] 05:37:00* Test Item Value Reference Range Interpretation [...] NRBC#) 0.00 K/mm3 0.0-0.05 N GLUCOSE BEDSIDE [id number] 20:03:00* Test Item Value Reference Range Interpretation Comme nts GLUCOSE BEDSIDE TESTING (karen t code = GLUBED) 117 MG/DL 70-119 N DRUGS OF ABUSE SCREEN [id number] 11:42:00* Test Item Value Reference Range Interpretation [...] result as normal/abnormal. - CT HEAD/BRAIN W/O [id number] 11:37:00 [facility] BHUM[facility] JONES : 1975 Sex: F Patient Name: BHUMIKA JONES Unit No: [id number] EXAMS: CPT CODE: [id number] CT HEAD/BRAIN W/O CONT 53441 EXAMINATION: - CT HEAD/BRAIN W/O CONT COMPARISON: [...] MD; Jim Jaimes MD Dictated Date/Time: 09/14/2022 (9860) Technologist: ASUNCION CASTELLANO CTDI: DLP: Trnscrpt: 09/14/2022 (0753) [email or web address] DENIZ Lugo NAME: BHUMIKA JONES [facility] PHYS: Vladimir Menchaca MD [address] [place] [address] : 1975 AGE: 47 SEX: Etta [place] [address] LOC: NEHA 10 PHONE #: [phone] EXAM DATE: 09/14/2022 STATUS: ADM IN FAX #: [phone] RAD #: D/C DT PAGE 1 Signed Report Patient Name: BHUMIKA JONESUn No: [id number] EXAMS: CPT CODE: [id number] CT HEAD/BRAIN W/O CONT 69960 (Continued) Orig PrintD/T: S: 09/14/2022 (1140) DENIZ Lugo NAME: BHUMIKA JONES [facility] PHYS: Vladimir Menchaca MD [address] [place] [address] : 1975 AGE: 47 SEX: RAFI BUTT [facility] LOC: NEHA 10 PHONE #: [phone] EXAM DATE: 09/14/2022 STATUS: ADM IN FAX #: [phone] RAD #: D/C DT PAGE 2 Signed [...] AVOIDED DUE TO POSSIBLE HEPARINCONTAMINATION HCG SERUM [id number] 06:51:00* Test Item Value Reference Range Interpretation [...] CK) 268 Unit/L 26-192 H CBC W/AUTO [id number] 03:43:00* Test Item Value Reference Range Interpretation [...] = NRBC#) 0.00 K/mm3 0.0-0.05 N URINALYSIS OGLHRWVU3608-14-13 03:41:00* Test Item Value Reference Range Interpretation [...] RARE /LPF NONE - XR CHEST 2 [id number] 02:06:00 [facility] BHUM[facility]A JONES : 1975 Sex: F FAX: Suleman Carvalho APRNNP [phone] [place]: E St: REG Patient Name: BHUMIKA JONES Unit No: [id number] EXAMS: CPT CODE: [id number] XR CHEST 2 V 17391 EXAM: - XR CHEST 2 V HISTORY: [...] SULEMAN DYER ARRT (R) Transcribed Date/Time: 09/14/2022 (020) By: NadiyaMKM4 Orig Print D/T: S: 09/14/2022 (020) [facility] NAME: [address] PHYS: Suleman [place], [place] [address] : 1975 AGE: 47 SEX: F LOC: B.ERS PHONE #: [phone] EXAM DATE: 09/14/2022 STATUS: REG ER FAX #: [phone] RAD NO: DC Dt: PAGE 1 Signed ReportCOMPREHENSIVE METABOLIC [id number] 12:49:00* Test Item Value Reference Range Interpretation [...] used to interpret this result as normal/abnormal. BGHWZXTTD9675-81-24 12:49:00* Test Item Value Reference Range Interpretation Comme nts MAGNESIUM (test code = MAG) 1.7 MG/DL 1.6-2.6 N CBC W/AUTO [id number] 12:36:00* Test Item Value Reference Range Interpretation [...] RARE /LPF NONE DRUGS OF ABUSE SCREEN [id number] 00:33:00* Test Item Value Reference Range Interpretation [...] 300 ng/mL UA RFLX MICR CULT IF WXTKPIDQK5967-47-20 00:30:00* Test Item Value Reference Range Interpretation [...] Indication for culture: Suprapubic PainSpecimen Description: CLEAN CATCHALCOHOL 2022-09-11 00:18:00* Test Item Value Reference Range Interpretation Comme nts ALCOHOL (test code = ALC) 0.00 gm/dL 0.00-0.00 N ETHYL ALCOHOL MIRELLA HARRELL - INTERPRETATION: 0.050 GM/DL - NOT INTOXICATED 0.100 GM/DL - INTOXICATED 0.350-0.450 GM/DL - SEVERELY INTOXICATED 0.550 GM/DL- FATAL INTOXICATION BASIC METABOLIC [id number] 00:18:00* Test Item Value Reference Range Interpretation [...] 8.9 mg/dl 8.0-10.5 N HEPATIC FUNCTION PANEL [id number] 00:18:00* Test Item Value Reference Range Interpretation [...] ALKP) 113 Units/L 50.0-136.0 N HCG SERUM [id number] 00:18:00* Test Item Value Reference Range Interpretation Comme nts HCG SERUM QUAL (test code = HCGQL) NEGATIVE NEGATIVE Coronavirus 2019 nCoV Ejczdhr6767-86-87 00:09:00* Test Item Value Reference Range Interpretation Comme nts Coronavirus 2019 nCoV Bedside (test code = [id number]) Negative NEGATIVE Negative results should be treated as presumptive and ifinconsistent with clinical signs and symptoms, or necessaryfor patient management, should be tested with an alternativemolecular assay. Negative results do not preclude CWLZ-RwC-8usukgoumr and should not be used as the sole basis forpatient management decisions. Negative results should beconsidered in the context of a patient's recent exposures,history, presence of clinical signs and symptoms consistentwith COVID-19. CBC W/AUTO [id number] 23:58:00* Test Item Value Reference Range Interpretation [...] X10 3uL 0.00-0.01 N COMP. METABOLIC PANEL (31706)2022-09-07 02:12:41* Test Item Value Reference Range Interpretation Comme nts NA (test code = 0099653493) 133 mmol/L 135-145 L K (test code = 3843605184) 4.4 mmol/L 3.5-5.0 CL (test code = 1620513777) 102 mmol/L 98-108 CO2 TOTAL (test code = 8145328322) 25 mmol/L 23-31 AGAP (test code = 8307029898) 6 2-16 BUN (test code = 7014911606) 22 mg/dL 7-23 GLUCOSE (test code = 0450319908) 97 mg/dL 70-110 CREATININE (test code = 4785817872) 0.40 mg/dL 0.50-1.04 L TOTAL BILI (test code = 4633413413) 0.3 mg/dL 0.1-1.1 CALCIUM (test code = 9161045817) 8.9 mg/dL 8.6-10.6 T PROTEIN (test code = 9350822576) 7.7 g/dL 6.3-8.2 ALBUMIN (test code = 9776821752) 4.0 g/dL 3.5-5.0 ALK PHOS (test code = 3292186494) 104 U/L 34-122 ALTv (test code = 1742-6) 15 U/L 5-35 AST(SGOT) (test code = 0950300931) 22 U/L 13-40 eGFR (test code = 0212721395) 170.4 mL/min/1.73m2 HANNAH (test code = HANNAH) [...] imaging tests). Lab Interpretation (test code = 10047-2) Abnormal [facility] WITH [id number] 02:01:20* Test Item Value Reference Range Interpretation Comme nts WBC (test code = 6690-2) 6.17 See_Comment [Automated [employer]] The system which generated this result transmitted reference range: 4.30 - 11.10 10*3/?L. The reference range was not used to interpret this result as normal/abnormal. RBC (test code = 789-8) 3.73 See_Comment L [Automated [employer]] The system which generated this result transmitted [...] 32.9 g/dL 31.6-35.1 RDW-SD (test code = 15690-9) 48.1 fL 39.0-49.9 RDW-CV (test code = 788-0) 14.7 % 12.0-15.5 PLT (test code = 777-3) 272 See_Comment [Automated messa ge] The system which generated this result transmitted reference range: 166 - 358 10*3/?L. The reference range was not used to interpret this result as normal/abnormal. MPV (test code = 09280-2) 9.6 fL 9.5-12.9 NRBC/100 WBC (test code = 1035037218) 0.0 See_Comment [Automated [facility] ssage] The system which generated this result transmitted reference range: 0.0 - 10.0 /100 WBCs. The reference range was not used to interpret this result as normal/abnormal. NRBC x10^3 (test code = 6894313848) See_Comment [Automated dooyooa ge] The system which generated this result transmitted reference range: 10*3/?L. The reference range was not used to interpret this result as normal/abnormal. GRAN MAT (NEUT) % (test code = 770-8) 42.2 % IMM GRAN % (test code = 9393226565) 0.20 % LYMPH % (test code = 736-9) 38.2 % MONO % (test code = 5905-5) 12.6 % EOS % (test code = 713-8) 5.8 % BASO % (test code = 706-2) 1.0 % GRAN MAT x10^3(ANC) (test code = 3449331525) 2.60 10*3/uL 1.88-7.09 IMM GRAN x10^3 (test code = 7682205777) 0.00-0.06 LYMPH x10^3 (test code = 731-0) 2.36 10*3/uL 1.32-3.29 MONO x10^3 (test code = 742-7) 0.78 10*3/uL 0.33-0.92 EOS x10^3 (test code = 711-2) 0.36 10*3/uL 0.03-0.39 BASO x10^3 (test code = 704-7) 0.06 10*3/uL 0.01-0.07 Lab Interpretation (test code = 93087-4) [facility] TSVKOZKX1162-36-35 22:34:12 Impression: 1. ?No acute intracranial process. [...] mastoidair cells, paranasal sinuses are within normallimits. [facility], Radiant Results Inft User - 07/22/2019 4:35 [...] he patient. Please correlate with history and physicalexamination.[facility] CERVICAL SPINE 2 [id number] 22:29:40No acute osseous abnormality. Preliminary Report Dictated [...] reviewed this study and agree with theabove report.[facility] WITH LRTVKXOWSOZN6844-63-17 21:46:00* Test Item Value Reference Range Interpretation [...] 32.2 g/dL 31.6-35.1 RDW-SD (test code = 99540-7) 45.1 fL 39-49.9 RDW-CV (test code = 788-0) 14.6 % 12-15.5 PLT (test code = 777-3) See_Comment L [Automated messa ge] The system which generated this result transmitted reference range: 166 - 358 10*3/?L. The reference range was not used to interpret this result as normal/abnormal. MPV (test code = 11754-1) 9.0 fL 9.5-12.9 L NRBC/100 WBC (test code = 1886541631) See_Comment [Automated me ssage] The system which generated this result transmitted reference range: 0.0 - 10.0 /100 WBCs. The reference range was not used to interpret this result as normal/abnormal. NRBC x10^3 (test code = 0550068528) <0.01 See_Comment [Automated messa ge] The system which generated this result transmitted reference range: 10*3/?L. The reference range was not used to interpret this result as normal/abnormal. GRAN MAT (NEUT) % (test code = 770-8) 51.3 % IMM GRAN % (test code = 2266174285) 0.40 % LYMPH % (test code = 736-9) 24.4 % MONO % (test code = 5905-5) 23.1 % EOS % (test code = 713-8) 0.4 % BASO % (test code = 706-2) 0.4 % GRAN MAT x10^3(ANC) (test code = 0852810986) 2.48 10*3/uL 1.88-7.09 IMM GRAN x10^3 (test code = 9787468742) <0.03 0-0.06 LYMPH x10^3 (test code = 731-0) 1.18 10*3/uL 1.32-3.29 L MONO x10^3 (test code = 742-7) 1.12 10*3/uL 0.33-0.92 H EOS x10^3 (test code = 711-2) <0.03 0.03-0.39 L BASO x10^3 (test code = 704-7) <0.03 0.01-0.07 Lab Interpretation (test code = 80009-7) [facility]normal [facility] 2 ZG7103-57-47 03:28:03No acute osseous abnormality. Preliminary Report Dictated [...] this study and agree withthe above report. [facility] CenterValproic Acid Shiok7219-59-86 08:03:22* Test Item Value Reference Range Interpretation Comme nts Valproic Acid Level (test co de = Valproic Acid Level) 57.6 ug/mL(g) 50.0-100.0 Hemoglobin I3c2055-69-38 09:36:00* Test Item Value Reference Range Interpretation Comme nts Hemoglobin A1c (test code = Hemoglobin A1c) 5.0 % 4.8-5.9 Non Diabetic 4.8-5.9%Diabetic <7.0% CT Shoulder w/o Contrast Qjae0641-97-63 16:49:13Patient: BHUMIKA JONES Date/Time01/09/2019 16:14 CDTReason for [...] Adam FSigned (Electronic Signature): 01/09/2019 4:49 pmRPR Zhsjobgmork1285-05-76 21:33:20* Test Item Value Reference Range Interpretation [...] 04-23-2020 N XR Shoulder Complete 2+ Views Cmcs3037-06-59 15:41:25Patient: BHUMIKA JONES Date/Time01/07/2019 15:25 CDTReason for [...] CSigned (Electronic Signature): 01/07/2019 3:41 pmThyroid Stimulating Fofzmob5391-28-53 03:07:04* Test Item Value Reference Range Interpretation Comme nts TSH (test code = TSH) 9.650 mIU/mL 0.270-4.200 H Lipid Dhzro5439-61-53 03:07:03* Test Item Value Reference Range Interpretation Comme nts Cholesterol Total (test code = Cholesterol Total) 199 mg/dL 0-200 RISK OF HEART DISEASEPublished by [place] Heart Association Analyte Optimal Borderline Increased RiskCHOL [...] is LDL/HDL Ratio=LDL Calc/HDL Chol HCG Qualitative Vjnsg8476-99-00 02:33:13* Test Item Value Reference Range Interpretation Comme nts HCG, Serum Qual (test code = HCG, Serum Qual) Negative Lot # (test code = Lot #) [id number] N Expiration Dt (test code = Expiration Dt) 2020-04-23 N Neg Control (test code = Neg Control) Negative Pos Control (test code = Pos Control) Positive Internal QC (test code = Int ernal QC) Acceptable Drugs of Abuse Urine 71509-96-23 18:58:11* Test Item Value Reference Range Interpretation [...] = Cannabinoid Screen Ur) Negative Negative Alcohol Cwrcw0016-32-28 18:47:34* Test Item Value Reference Range Interpretation Comme nts Ethanol Level (test code = Ethanol Level) <0.00 g/dL 0.00-0.01 Intoxicated 0.08 0 g/dL or more Ethanol Inst (test code = Ethanol Inst) <0 N Comprehensive Metabolic Gspcf7767-89-08 18:47:33* Test Item Value Reference Range Interpretation [...] A/G Ratio) 1.0 ratio N Comprehensive Metabolic Jbian7789-22-15 18:47:33* Test Item Value Reference Range Interpretation [...] is not provided, and the patient is -Dutch, multiply by 1.212. If sex is not [...] the National Kidney Foundation, http://nkdep.nih.gov Comprehensive Metabolic Kdtsz5734-47-16 18:47:33* Test Item Value Reference Range Interpretation [...] is not provided, and the patient is -Dutch, multiply by 1.212. If sex is not [...] is not provided, and the patient is -Dutch, multiply by 1.212. If sex is not [...] Kidney Foundation, http://nkdep.nih.gov Complete Blood Count with Binvepueywou1416-68-84 18:15:23* Test Item Value Reference Range Interpretation [...] code = IPF) 0 % N Automated Enbbzhoxqmta5188-00-15 18:15:23* Test Item Value Reference Range Interpretation Comme nts Neutro Auto (test code = Sunny tro Auto) 42.1 % 36.0-70.0 Lymph Auto (test code = Lymph Auto) 40.0 % 12.0-44.0 Butler Auto (test code = Butler Auto) 12.2 % 0.0-11.0 H Eos, Auto (test code = Eos, Auto) 4.9 % 0.0-7.0 Basophil Auto (test code = B asophil Auto) 0.6 % 0.0-2.0 Neutro Absolute (test code = Neutro Absolute) 2.2 x10 1.6-7.4 Lymph Absolute (test code = Lymph Absolute) 2.06 x10 .50-4.60 Butler Absolute (test code = M richa Absolute) .63 x10 .00-1.20 Eos Absolute (test code = Eo s Absolute) 0.25 x10 0.00-0.74 Baso Absolute (test code = B aso Absolute) 0.03 x10 0.00-0.21 IG Qqxmv4660-59-89 18:15:23* Test Item Value Reference Range Interpretation Comme nts IG (test code = IG) 0.2 % 0.0-5.0 IG Abs (test code = IG Abs) 0 x10 N Notes Date/Time Note Provider Source 2022-10-11 12:29:00 [id number] TGhQyQIImS2aL+rpA2xLEmWGdgrjZ NmmKSuQnamFNCK0I9IAN87RKIVs4942-27-48J41:29:00 [facility] Discharge SummaryREPORT#:[id number] REPORT STATUS: SignedDATE:10/11/22 TIME: 1229 PATIENT: BHUMIKA JONES UNIT #: [id number]#: [id number] [address] [birth year] AGE: 47 SEX: F ATTEND: Marly Mendenhall MDA AUTHOR: Marly Mendenhall MD * ALL edits [...] patient this morning with the help of bankruptcy judge and she said that he lives with [...] capillary refill, normal range of motion, no edemaNeuro/STAFF TECHNOLOGIST: altered mental status, alert Discharge Instructions PCPDischarge to: Home/Self CareAdditional Discharge Routines: PCP Follow-UpDiet: Resume Home Diet/FeedsActivity: As Tolerated Follow-up AppointmentsPCP follow-up: PCP: No Primary or Family Physician PCP follow up timeframe: In 6 days at 1230 RPT #:[id number] OF REPORTDSDischarge mfyllyt9451-68-50U54:29:00B.CFJE67011586-3869AOJj ailable for patient epyvEWDPGXFBHPVXZP1635-44-86S52:30:16 [facility] 2022-09-18 17:27:00 [id number] QoBwURcMX2VRKESvJNXXxFSzoVtc6 BTmk6DxVJZ+Lg8HfFSvsidAg5kF5897-43-12J23:27:00 [facility] ([facility])Electroencephalogram-EEGREPORT#:[id number] REPORT STATUS: SignedDATE:09/18/22 TIME: 1726 PATIENT: BHUMIKA JONES UNIT #: [id number]#: [id number] [address] [birth year] AGE: 47 SEX: F ATTEND: Marly Mendenhall [facility] AUTHOR: Nelia Parker MD [...] open eyes (commands were obtained using a outpatient admitting clerk) with opening the eyes the patient would [...] except with the patientmentioned. at 1736 RPT #:[id number] OF REPORTDIDiagnostic zgpkqki5676-12-25D81:27:00B.[id number] ailable for patient eyniTBXLOFJQRAHZGC2007-61-83A25:37:11 [facility] 2022-09-18 14:24:00 [id number] NLKWyXSP95CT7dqh4Rozd6wR4GnyV Jh6sl4+Df7eBwTIdNJqXMD7RRgd7590-58-91C63:24:00 [facility] Consultation NoteREPORT#:[id number] REPORT STATUS: SignedDATE:09/18/22 TIME: 1424 PATIENT: BHUMIKA JONES UNIT #: [id number]#: [id number] [address] [birth year] AGE: 47 SEX: F ATTEND: Marly Mendenhall [facility] AUTHOR: Nelia Parker MD * ALL edits or amendments must be made on the electronic/computer document * See AddendumHistory of Present Illness HPIRequesting clinician: see consult orderReason for consult:"AMS"Chief complaint:wanting to go home for her familyHPI:47-year-old female Wallisian speaking only who was brought into the [...] refilled and the patient was sent to [facility]. Reportedly per the patient she did not like the care home and does not like the food [...] or seizures prior to herbeing in the care home. Per the patient she get upset that [...] to her family. Only ambulance records from [facility] for patient who was brought in here [...] available to confirm the history and the care home location is unknown to contact someone [...] 09/18 1127 O2 Delivery Room air 09/18 1127 Temp 98.2 09/18 1127 Pulse 64 09/18 [...] MG 09/18 09/18 09/17 09/17 0553 0553 8326 1510Chemistry Hemoglobin A1c (4.5 - 5.6 % IS-A1C) [...] - 8.0 pH UNITS) 6.5 Ur Specific Sully (1.001 - 1.035 SG) 1.013 Urine Protein [...] in the past ornot. at 1652 RPT #:[id number] OF REPORTJOLlksqujqxvxh5382-52-71E65:24:00B.PDOC2 [id number] for patient azgwHRJTNYARSDVADJ9129-64-36K84:10:17 [facility] 2022-09-18 11:44:00 [id number] NnAN8lNvsETtJLrVAu2C24dWsOaHg XpTTKcr6l/wCYbBfvk6WPSfHOPf5610-95-33E13:44:00 [facility]ospital[facility] Progress NoteREPORT#:[id number] REPORT STATUS: SignedDATE:09/18/22 TIME: 1144 PATIENT: BHUMIKA JONES UNIT #: [id number]#: [id number] [address] [birth year] AGE: 47 SEX: F [...] patient this morning with the help of bankruptcy judge and she said that he lives with [...] capillary refill, normal range of motion, no edemaNeuro/STAFF TECHNOLOGIST: altered mental status, alert Diagnosis, Assessment Plan [...] afternoon if remains stable at 1147 RPT #:[id number] OF REPORTPRProgress mmvs1448-44-41W68:44:00B.JWXP74919003-2207OQYakzc able for patient ablbCIWPIGZTFCVWDC6780-27-54H67:47:26 [facility] 2022-09-18 01:06:00 [id number] 6QnVfLdgczan6vFK3t5AeRZ5EINtg anqV3yWE8ZgQc8VJ+guX3qiU/iR4182-09-22U24:06:00 [facility] History PhysicalREPORT#:[id number] REPORT STATUS: SignedDATE:09/18/22 TIME: 0106 PATIENT: BHUMIKA JONES UNIT #: [id number]#: [id number] [address] [birth year] AGE: 47 SEX: F ATTEND: Marshall Orellana MDA AUTHOR: Nelia Moffett MD * ALL edits [...] - 8.0 pH UNITS) 6.5 Ur Specific Sully (1.001 - 1.035 SG) 1.013 Urine Protein [...] awakeCardiovascular: regular rate rhythmRespiratory: decreased breath soundsAbdomen: softNeuro/STAFF TECHNOLOGIST: altered mental status, alert Diagnosis, Assessment PlanFree Text A P:HyponatremiaDo a work-upContinue Ringer lactate 50 cc/h monitor electrolytes Metabolic encephalopathyNeuro watchTreat underlying condition SchizophreniaContinue home medication once confirmed Seizure disorderContinue home medicationSeizure precaution DVT prophylaxisLovenoxAdvanced directive discussedMedication reviewed and reconciledBefore midnightI will sign off at 6 AM today further management by incoming MD thereafter at 0110 RPT #:[id number] OF REPORTHPHistory and physical lljlkjypijd1658-02-57H83:06:00B.[id number] AVAvailable for patient afrzEXNUGCSTVVNUPK0630-11-86S66:10:56 [facility] 2022-09-17 14:34:00 [id number] HWz0/Kz9+q2dTTldJUBDBzRpOiYVM XCsHUpT364PaQWZIJK7Xj22S0lc0208-17-25O81:34:00 [facility] ([facility] PROVIDER REPORTREPORT#:[id number] REPORT STATUS: SignedDATE:09/17/22 TIME: 1434 PATIENT: JONESBHUMIKA UNIT #: [id number]#: [id number] ROOM/BED: 267-1AGE: 47 SEX: F PCP PHYS: No Primary or Family PhysicianSERVICE AUTHOR: Valentina Samayoa MD * ALL edits or amendments must be made on the electronic/computer document * HPI-General Illness Free Text HPI NotesFree Text HPI Jxani69-kpfu-dlx female presents after possible seizure episode at [facility], will assessment patient is not fully oriented, and cannot provide history of theevents of today when asked multiple times. Additional history limited as the patient is tearful and not fully oriented. I spoke to the patient's sister Lewis Chiang, phone #[phone] by phone, who reports the patient has been missing from home for 8 days. Reports when the patient is medically cleared they can come get the patient. Patient reportedly initially without medications[facility] the [facility] PMH: Seizures, schizophrenia. GeneralInitial Greet [...] #30 TABS Prov: 09/13/22 DC: 09/14/22 [address] TEOFILO CALLES) 1,000 MG PO DAILY DIVALPROEX DR TEOFILO CALLES) 1,000 MG PO DAILY #60 TABS Prov: 09/13/22 DC: 09/14/22 1459 dental biller correction Reported MedicationsDIVALPROEX ER (DEPAKOTE ER) 1,000 [...] - 8.0 pH UNITS) 6.5 Ur Specific Sully (1.001 - 1.035 SG) 1.013 Urine Protein [...] refill, drowsy, admitted, ultimately discharged back [facility]]-My EKG interpretation: I directly visualized and [...] Accepted Time 163 )( Accepted Date 09/17/22 at 1114RPT #:[id number] OF REPORTEDEmergency department rdxbai8560-95-87L19:34:00B.FWSF81509904-5210ISBox ilable for patient yhxrQGVNHNKHGLGIRK5519-28-85B69:14:25 [facility] 2022-09-17 00:19:00 [id number] bCdF5g1gpsm+/9FMdISqWV/sxJXR5 TZwaMBV+SjBBKra+/rPVx5kW1ET5136-72-37E67:19:00 [facility] PROVIDER REPORTREPORT#:[id number] REPORT STATUS: SignedDATE:09/17/22 TIME: 0019 PATIENT: BHUMIKA JONES UNIT #: [id number]#: [id number] ROOM/BED:AGE: 47 SEX: F PCP PHYS: No Primary or Family PhysicianSERVICE AUTHOR: Asim Jack MD * ALL edits or amendments must be made on the electronic/computer document * HPI-General Illness GeneralInitial Greet Date/Time 09/16/22 8547 PresentationChief Complaint Anxiety, Not feeling well Free Text HPI NotesFree Text HPI NotesPatient brought in by EMS from local women care home after increasing anxiety and concern for possible seizure activity. She was recently admitted here at [facility] and worked up for [...] #30 TABS Prov: 09/13/22 DC: 09/14/22 [address] (GINA CALLES) 1,000 MG PO DAILY DIVALPROEX DR (GINA CALLES) 1,000 MG PO DAILY #60 TABS Prov: 09/13/22 DC: 09/14/22 1459 dental biller correction Reported MedicationsDIVALPROEX ER (DEPAKOTE ER) 1,000 [...] B/P 136/82 09/16 2256 B/P Mean 100 09/16 225 O2 Delivery Room air 09/17 2255 Temp [...] % (Auto) (14.1 - 45.4 %) 29.6 Butler % (Auto) (2.5 - 11.7 %) 10.8 Eos % (Auto) (0.0 - 6.2 %) 2.9 Baso % (Auto) (0.0 - 2.1 %) 0.7 Gran # (2.0 - 13.7 k/mm3) 3.12 Lymph # (Auto) (0.6 - 3.8 K/mm3) 1.65 Butler # (Auto) (0.11 - 0.59 K/mm3) 0.60 [...] MDRADIOLOGY - XR CHEST 1 V 09/16 230 Report Impression - Status: SIGNED Entered: 09/16/2022 2337 IMPRESSION:No acute cardiopulmonary disease.Impression By: NadiyaJH12 - Flo Jansen MD Lab Imaging StatementLaboratory radiographic studies reviewed and considered in the medical decision-making. ECG #1 InterpretationText/Dict [id number] EKG shows normal sinus rhythm and rate of 64. There is no acute ST elevation to suggest ischemia. Normal axis and intervals without significant hypertrophy or ectopy. Nonspecific T wave changes noted with low voltage. I personally reviewed and interpreted the EKG Re-Evaluation MDM Free Text MDM NotesFree Text MDM NotesPatient presents from local care home with concern for possible seizure activity. [...] for discharge. Patient urged to follow-up with [facility] in the next 2 to 3 days Re-Evaluation/Progress #1Time of Re-Eval 0136Re-Eval Status Unchanged ED CourseMedication(s) OrderedMedication(s) Ordered:Central Nervous System Agents Sig/Ksenia Start time Last Medication Dose Route Stop Time Status Admin Midazolam HCl 1 MG X1ED STA 09/16 2304 DC 09/16 IV 09/16 230 2345 Patient Discharge Departure Vital Signs/ConditionVital SignsFirst Documented: Result Date Time Pulse Ox 100 09/17 2255 B/P 136/82 09/16 2256 B/P Mean 100 09/17 2255 O2 Delivery Room air 09/17 2255 Temp 37.1 09/17 2255 Pulse 75 09/17 2255 Resp 16 09/17 2255 Last Documented: Result Date Time Pulse Ox 99 09/17 0016 B/P 142/84 09/17 0016 B/P Mean 103 09/17 0016 O2 Delivery Room air 09/18 15 Temp 36.9 09/17 001 Pulse 67 09/17 001 Resp 09/17 001 All vital signs available at the time of this entry have been reviewed. Clinical ImpressionClinical ImpressionPrimary Impression: AnxietySecondary Impressions: History of seizures, Homeless Disposition DecisionDischarge )( Discharged to Home Yes )( Time 0137 Discharge/Care PlanCounseled Regarding Diagnosis, Lab results, Imaging studies, Need for follow-up,When to return to EDPatient Instructions ED Anxiety Reaction, ED Seizure, Recurrent (Adult)Additional InstructionsPlease follow-up with [facility], [facility], and neurology. Return if any confusion, headache, stiff neck, fever, vomiting, or any other new concerns. Please take all your medications as instructedReferralsProvider Group: [place] [facility] Follow-Up: 2-3 Days Provider Referral: Nelia Parker MD Follow-Up: 2-3 Days Address: [address] [place] [address] [address] [place] [address] Resource Referral: [facility] Follow-Up: 2-3 Days Address: [address] [place] [address] at 0140RPT #:[id number] OF REPORTEDEmergency department nrtktg4916-26-17Q59:19:00B.TUAV70148071-4713MNBol ilable for patient jeccFWERDRWIGRLBWB9203-75-48T99:41:10 [facility] 2022-09-15 12:06:00 [id number] YoiE8XO3ikqk5kHYq7xjPbuj6z+Qi 8V12qiLLvmAlJssm5MmL6h2R2366703-05-09K49:06:00 [facility]Electroencephalogram-EEGREPORT#:[id number] REPORT STATUS: SignedDATE:09/15/22 TIME: 1206 PATIENT: BHUMIKA JONES UNIT #: [id number]#: [id number] [facility] AGE: 47 SEX: F [...] or electrographic seizures recorded. at 1209 RPT #:[id number] OF REPORTDIDiagnostic aenwqzh4163-36-34I85:06:00B.DQYO30449632-2974EFYw ailable for patient jazvGOYOFOAREONNAX1777-39-23S82:09:33 [facility] 2022-09-15 12:00:00 [id number] O79ROymSWeSJHZasLUxw/SeeLoMjm TnOd4aFzW7YscYa3mAQ7Oal/yQ35941-78-06D89:00:00 [facility] [place] ([facility])Hospitalist Discharge SummaryREPORT#:[id number] REPORT STATUS: SignedDATE:09/15/22 TIME: 1200 PATIENT: BHUMIKA JONES UNIT #: [id number]#: [id number] [facility] [birth year] AGE: 47 SEX: F [...] evaluated for possible seizure episode. She is Wallisian-speakingpatient only in pulpit operator was used. Patient denies to have any seizure episodes at home she just ran out of her medications and came to the hospital. Patient otherwise remains hemodynamically stable. However she is too drowsy to be discharged safely back home. I discussed the case with the patient.She wants her medications to be refilled and that she wants to go back to her care home.I discussed with her about potential seizure episodes in the future use of medications compliance with the medications and further prescriptions. She states that she would management to the care home. I have requested case management to [...] initial diagnosis and related differentials with the patient/child care assistant including RN. All concerns and questions are answered to the best of my abilities based on theavailable data.I have initiated the plan of care based on preliminary diagnosis,requested appopriate consultations with labs/imagings. Patient/child care assistant verbalizes understanding of the plan of [...] timeframe: In 1-2 weeks at 1202 RPT #:[id number] OF REPORTDSDischarge rdeoypn6152-85-56N75:00:00B.RTYW63339939-9951EPSv ailable for patient todfSOQFHPBNYYNZRO5386-04-35Y01:03:09 [facility] 2022-09-14 16:56:00 [id number] 2KyxT0IPV4+ql4h7Q75QqRT1R5/2M WyAZ1U9x1jcjq+soXaVRX19K/bB5355-81-40A03:56:00 [facility])Neurology Consultation NoteREPORT#:[id number] REPORT STATUS: SignedDATE:09/14/22 TIME: 1656 PATIENT: BHUMIKA JONES UNIT #: [id number]#: [id number] [facility] [birth year] AGE: 47 SEX: F ATTEND: Jim Jaimes [facility] AUTHOR: Vickie Lewis MD * ALL [...] evaluated for possible seizure episode. She is Wallisian-speakingpatient only in pulpit operator was used. Patient denies to have [...] (SODIUM CHLORIDE 0.9% 1000 ML) 1,000 ML .R13G16N IV Trazodone HCl (DESYREL) 50 MG BEDTIME PRN PRN PO Sodium Chloride (SODIUM CHLORIDE 0.9% 1000 ML) 1,000 ML .W17V27V IV Carbamazepine (TEGretol) 400 MG BID PO Divalproex Sodium (DEPAKOTE DR) 1,000 MG BID PO (DC) Acetaminophen (TYLENOL) 650 MG Q6H PRN PRN PO Ondansetron HCl (ZOFRAN) 4 MG Q4H PRN PRN IV Ceftriaxone Sodium (ROCEPHIN) 1 GM Q24H IV (CAN) Lactated Ringer's (LACTATED RINGERS) 1,000 ML .X75G23K IV Ceftriaxone Sodium (ROCEPHIN) 1 GM X1ED [...] % (Auto) (14.1 - 45.4 %) 33.6 Butler % (Auto) (2.5 - 11.7 %) 13.4 H Eos % (Auto) (0.0 - 6.2 %) 7.4 H Baso % (Auto) (0.0 - 2.1 %) 0.9 Gran # (2.0 - 13.7 k/mm3) 2.61 Lymph # (Auto) (0.6 - 3.8 K/mm3) 1.96 Butler # (Auto) (0.11 - 0.59 K/mm3) 0.78 [...] - 8.0 pH UNITS) 6.0 Ur Specific Sully (1.001 - 1.035 SG) 1.032 Urine Protein [...] cardiopulmonary process.Impression By: NadiyaMKM4 - Igor Almonte, [facility] SCAN - CT HEAD/BRAIN W/O CONT 09/14 [...] deferred to primary team. at 1707 RPT #:[id number] OF REPORTZIKomwojdeejnb4236-12-98Y60:56:00B.PDOC2 [id number] for patient egleGWKQMNXOEKQYLU6875-40-14E13:07:40 [facility] 14:55:00 [id number]/JIADP4 h6R1GGlA50oL5WOPqxkxME3mhj5F9 RFUyTLYqLZF2ilBJ8DOKMLNHtF04841-24-42U50:55:00 [facility] ([facility])Hospitalist History PhysicalREPORT#:[id number] REPORT STATUS: SignedDATE:09/14/22 TIME: 1455 PATIENT: BHUMIKA JONES UNIT #: [id number]#: [id number] [facility] [birth year] AGE: 47 SEX: F ATTEND: Jim Jaimes [facility] AUTHOR: Vladimir Forbes MD [...] evaluated for possible seizure episode. She is Wallisian-speakingpatient only in pulpit operator was used. Patient denies to have [...] (0.88 - 1.13 INR Unit) 0.95 PTT (Owen) (24 - 37.7 SECONDS) 34.6 Toxicology Valproic [...] % (Auto) (14.1 - 45.4 %) 33.6 Butler % (Auto) (2.5 - 11.7 %) 13.4 H Eos % (Auto) (0.0 - 6.2 %) 7.4 H Baso % (Auto) (0.0 - 2.1 %) 0.9 Gran # (2.0 - 13.7 k/mm3) 2.61 Lymph # (Auto) (0.6 - 3.8 K/mm3) 1.96 Butler # (Auto) (0.11 - 0.59 K/mm3) 0.78 [...] - 8.0 pH UNITS) 6.0 Ur Specific Sully (1.001 - 1.035 SG) 1.032 Urine Protein [...] of acute cardiopulmonary process.Impression By: NadiyaMKM4 - MEKHI Caraballo SCAN - CT HEAD/BRAIN W/O CONT 09/14 [...] evaluated for possible seizure episode. She is Wallisian-speakingpatient only in pulpit operator was used. Patient denies to have [...] initial diagnosis and related differentials with the patient/child care assistant including RN. All concerns and questions are answered to the best of my abilities based on theavailable data.I have initiated the plan of care based on preliminary diagnosis,requested appopriate consultations with labs/imagings. Patient/child care assistant verbalizes understanding of the plan of care. at 1501 RPT #:[id number] OF REPORTHPHistory and physical fqgdpqqiysx1867-56-52D37:55:00B.[id number] AVAvailable for patient wmenGAVMKOJXUZUVII3341-53-18P32:01:57 [facility] 2022-09-14 04:21:00 [id number] gTJHzAGRMRxwtw5PiwBzd/CRltByW mroInFdN8iBBfUqYBGJiI/YBhk73855-74-41P39:21:00 [facility])EMERGENCY PROVIDER REPORTREPORT#:[id number] REPORT STATUS: SignedDATE:09/14/22 TIME: 420 PATIENT: BHUMIKA JONES UNIT #: [id number]#: [id number] [address]: 47 SEX: F PCP PHYS: No [...] Complaint __ (needs help)Hx Obtained From Patient, Program Paraprofessional Review of Systems ROS StatementsAll systems rev [...] % (Auto) (14.1 - 45.4 %) 33.6 Butler % (Auto) (2.5 - 11.7 %) 13.4 H Eos % (Auto) (0.0 - 6.2 %) 7.4 H Baso % (Auto) (0.0 - 2.1 %) 0.9 Gran # (2.0 - 13.7 k/mm3) 2.61 Lymph # (Auto) (0.6 - 3.8 K/mm3) 1.96 Butler # (Auto) (0.11 - 0.59 K/mm3) 0.78 [...] - 8.0 pH UNITS) 6.0 Ur Specific Sully (1.001 - 1.035 SG) 1.032 Urine Protein [...] 09/14 031 0452 Patient Discharge Departure Vital Signs/ConditionVital SignsFirst [...] is the patient's second visit here at [facility] in the past 24 [...] plan of care. at 0449 at 0540RPT #:[id number] OF REPORTEDEmergency department zgobwm6794-61-74S72:21:00B.CUTQ56321658-8607YTJwp ilable for patient uayyJXJXVXLAAOCFEF6461-05-11E50:49:55 [facility] 2022-09-13 20:34:00 [id number] W90airDaGMcrckk0AWAz5mjZ0lzUo TnQRADXSzmtvpzSSW6kYmN67hwz4700-79-18T10:34:00 [facility] ([facility])EMERGENCY PROVIDER REPORTREPORT#:[id number] REPORT STATUS: SignedDATE:09/13/22 TIME: 2033 PATIENT: BHUMIKA JONES UNIT #: [id number]#: [id number] ROOM/BED: B250-WAGE: 47 SEX: F PCP PHYS: No Primary [...] (RisperDAL) 3 MG PO DAILY at 1707RPT #:[id number] OF REPORTEDEmergency department epyzvv4666-91-44X30:34:00B.ZVEM40692712-9433DNWgr ilable for patient owycOQMYHTJKYTDHZR0872-83-88C22:08:12 [facility] 2022-09-13 09:58:00 [id number] NnfRrsmLpoN3QEEdhtqNIIMqZnwh3 lGAsIpNt7AbNZaQuqkvJm3iK2za9945-84-31Z55:58:00 [facility] ([facility])EMERGENCY PROVIDER REPORTREPORT#:[id number] REPORT STATUS: SignedDATE:09/13/22 TIME: 957 PATIENT: BHUMIKA JONES UNIT #: [id number]#: [id number] ROOM/BED:AGE: 47 SEX: F PCP PHYS: No Primary or Family PhysicianSERVICE AUTHOR: Brad Woodall DO * ALL edits or amendments must be made on the electronic/computer document * HPI-General Illness Free Text HPI NotesFree Text HPI Nptvi22-wqko-fax female past medical history epilepsy out of [...] - 8.0 pH UNITS) 6.0 Ur Specific Sully (1.001 - 1.035 SG) 1.024 Urine Protein [...] % (Auto) (14.1 - 45.4 %) 34.0 Butler % (Auto) (2.5 - 11.7 %) 10.1 Eos % (Auto) (0.0 - 6.2 %) 2.7 Baso % (Auto) (0.0 - 2.1 %) 0.7 Gran # (2.0 - 13.7 k/mm3) 3.04 Lymph # (Auto) (0.6 - 3.8 K/mm3) 1.98 Butler # (Auto) (0.11 - 0.59 K/mm3) 0.59 [...] or a call to 911. at 1327RPT #:[id number] OF REPORTTitus Regional Medical Center department pipvca4575-04-36Z58:58:00B.CWPF90052042-4302ZFQnq ilable for patient kfpnODOROFOIUMQXHG7612-88-09L38:28:04 [facility]
[2023-08-21 10:56] LABS: SARS-CoV-2 Antigen Rapid Res Negative (Negative)
--- NOTE | 2023-08-21 11:14 | ER ---
Nurse's Notes [facility] Name: Sidra Hodges Age: 48 yrs Sex: Female : 1975 Arrival Date: 08/21/2023 Time: 10:06 Bed 14 Private MD: Diagnosis: Viral syndrome, upper respiratory infection Presentation: 08/21 10:15 Chief complaint: EMS states: called for cough and sore throat. Coronavirus screen: ko1 cough unrelated to allergies, sore throat, Client presents with at least one sign or symptom that may indicate coronavirus-19. Standard/surgical mask placed on the client. Ebola Screen: No symptoms or risks identified at this time. Initial Sepsis Screen: Does the patient meet any 2 criteria? No. Patient's initial sepsis screen is negative. Does the patient have a suspected source of infection? No. Patient's initial sepsis screen is negative. Risk Assessment: Do you want to hurt yourself or someone else? Patient reports no desire to harm self or others. Onset of symptoms is unknown. 10:15 Method Of Arrival: EMS: [facility] ko1 10:15 Acuity: CARMITA 4 ko1 Triage Assessment: 10:37 General: Appears in no apparent distress. Behavior is calm. Pain: Complains of pain in ko1 sore throat. Historical: - Allergies: 10:37 CARBAMAZEPINE DERIVATIVES; ko1 10:37 Depakote; ko1 10:37 Tegretol; ko1 - PMHx: 10:37 ADD/ADHD; Anxiety; Chronic pain; hemorrhoids; Schizophrenia; Bipolar disorder; Seizures;ko1 - Immunization history:: Adult Immunizations unknown. - Social history:: Smoking status: unknown. Screenin:38 [facility] ED Fall Risk Assessment (Adult) History of falling in the last 3 months, ko1 including since admission No falls in past 3 months (0 pts) Confusion or Disorientation No (0 pts) Intoxicated or Sedated No (0 pts) Impaired Gait No (0 pts) Mobility Assist Device Used No (0 pt) Altered Elimination No (0 pt) Score/Fall Risk Level 0 - 2 = Low Risk Oriented to surroundings, Maintained a safe environment, Educated pt \T\ family on fall prevention, incl call for assistance when getting out of bed, Assessed \T\ reinforced patient's understanding of fall precautions, Provided non-skid footwear, Hourly rounding (assess needs \T\ fall precautionary measures) done, Used ambulatory aids as needed (educated on \T\ assisted with), Used gait belt as appropriate. Abuse screen: Denies threats or abuse. Denies injuries from another. Nutritional screening: No deficits noted. Tuberculosis screening: No symptoms or risk factors identified. Assessment: 10:38 Neuro: No deficits noted. Cardiovascular: No deficits noted. Respiratory: Reports cough ko1 that is non-productive. GI: No deficits noted. : No deficits noted. EENT: Reports difficulty swallowing nasal congestion nasal discharge pain when swallowing. Derm: No deficits noted. Musculoskeletal: No deficits noted. Vital Signs: 10:15 BP 134 / 98; Pulse 73; Resp 16; Temp 98; Pulse Ox 100% ; ko1 10:40 BP 139 / 94; Pulse 65; Resp 15; Pulse Ox 99% ; ko1 11:29 BP 150 / 99; Pulse 61; Resp 17; Pulse Ox 99% ; ko1 ED Course: 10:09 Patient arrived in ED. ko1 10:10 Cary Meza MD is Attending Physician. sp3 10:13 Mi Trinh, GERONIMO is Primary Nurse. ko1 10:27 Flu Sent. ko1 10:27 SARS RAPID Sent. ko1 10:27 Strep Sent. ko1 10:37 Triage completed. ko1 10:37 Arm band placed on right wrist. Patient placed in an exam room, on a stretcher, on ko1 pulse oximetry, Patient notified of wait time. 10:38 No provider procedures requiring assistance completed. Patient did not have IV access ko1 during this emergency room visit. 10:38 Patient has correct armband on for positive identification. Bed in low position. Call ko1 light in reach. Side rails up X2. Provided Education on: na. Pulse ox on. NIBP on. Door closed. Noise minimized. Lights dimmed. Warm blanket given. Administered Medications: 10:17 Drug: Ibuprofen PO 600 mg PO once Route: PO; ko1 Medication: 10:38 VIS not applicable for this client. ko1 Outcome: 11:14 Discharge ordered by . sp3 11:35 Discharged to home ambulatory, ko1 11:35 Condition: good 11:35 Discharge instructions given to patient, Instructed on discharge instructions, follow up and referral plans. Demonstrated understanding of 11:37 Patient left the ED. ko1 Signatures: Cary Meza MD MD sp3 Mi Trinh, RN RN ko1
--- NOTE | 2023-08-21 11:14 | EDPHYS ---
Physician Documentation [facility] Name: Sidra Hodges Age: 48 yrs Sex: Female : 1975 Arrival Date: 08/21/2023 Time: 10:06 Bed 14 Private MD: ED Physician Cary Meza HPI: 08/21 10:15 This 48 yrs old Female presents to ER via Unassigned with complaints of SORE sp3 THROAT. 10:15 48-year-old female well-known to the ED with a history of bipolar disease, ADHD, sp3 seizures, chronic pain now presents to the ED with sore throat for 2 to 3 days. She denies fever, cough, congestion, chest pain, shortness of breath, abdominal pain, nausea, vomiting, diarrhea, rash, known sick contacts, travel history, prolonged immobilization, or any other signs or symptoms on ROS at this time.. Historical: - Allergies: 10:37 CARBAMAZEPINE DERIVATIVES; ko1 10:37 Depakote; ko1 10:37 Tegretol; ko1 - PMHx: 10:37 ADD/ADHD; Anxiety; Chronic pain; hemorrhoids; Schizophrenia; Bipolar disorder; Seizures;ko1 - Immunization history:: Adult Immunizations unknown. - Social history:: Smoking status: unknown. ROS: 10:16 Constitutional: Negative for fever, chills, and weight loss, Eyes: Negative for injury, sp3 pain, redness, and discharge, Neck: Negative for injury, pain, and swelling, Cardiovascular: Negative for chest pain, palpitations, and edema, Abdomen/GI: Negative for abdominal pain, nausea, vomiting, diarrhea, and constipation, Back: Negative for injury and pain, MS/Extremity: Negative for injury and deformity, Skin: Negative for injury, rash, and discoloration, Neuro: Negative for headache, weakness, numbness, tingling, and seizure, Endocrine: Negative for neck swelling, polydipsia, polyuria, polyphagia, and marked weight changes, Hematologic/Lymphatic: Negative for swollen nodes, abnormal bleeding, and unusual bruising, 10:16 All other systems are negative, Exam: 10:16 Constitutional: This is a well developed, well nourished patient who is awake, alert, sp3 and in no acute distress. Head/Face: Normocephalic, atraumatic. Eyes: Pupils equal round and reactive to light, extra-ocular motions intact. Lids and lashes normal. Conjunctiva and sclera are non-icteric and not injected. Cornea within normal limits. Periorbital areas with no swelling, redness, or edema. ENT: Nares patent. No nasal discharge, no septal abnormalities noted. External auditory canals are clear. Oropharynx with no redness, swelling, or masses, exudates, or evidence of obstruction, uvula midline. Mucous membranes moist. Neck: Trachea midline, no thyromegaly or masses palpated, and no cervical lymphadenopathy. Supple, full range of motion without nuchal rigidity, or vertebral point tenderness. No Meningismus. Chest/axilla: Normal chest wall appearance and motion. Nontender with no deformity. No lesions are appreciated. Cardiovascular: Regular rate and rhythm with a normal S1 and S2. No gallops, murmurs, or rubs. Normal PMI, no JVD. No pulse deficits. Respiratory: Lungs have equal breath sounds bilaterally, clear to auscultation and percussion. No rales, rhonchi or wheezes noted. No increased work of breathing, no retractions or nasal flaring. Abdomen/GI: Soft, non-tender, with normal bowel sounds. No distension or tympany. No guarding or rebound. No evidence of tenderness throughout. Back: No spinal tenderness. No costovertebral tenderness. Full range of motion. Skin: Warm, dry with normal turgor. Normal color with no rashes, no lesions, and no evidence of cellulitis. MS/ Extremity: Pulses equal, no cyanosis. Neurovascular intact. Full, normal range of motion. Neuro: Awake and alert, GCS 15, oriented to person, place, time, and situation. Cranial nerves II-XII grossly intact. Motor strength 5/5 in all extremities. Sensory grossly intact. Cerebellar exam normal. Normal gait. Vital Signs: 10:15 BP 134 / 98; Pulse 73; Resp 16; Temp 98; Pulse Ox 100% ; ko1 10:40 BP 139 / 94; Pulse 65; Resp 15; Pulse Ox 99% ; ko1 11:29 BP 150 / 99; Pulse 61; Resp 17; Pulse Ox 99% ; ko1 MDM: 10:10 Patient medically screened. sp3 10:16 Data reviewed: vital signs, EMS record, old medical records, lab test result(s). ED sp3 course: Upper respiratory infection. Consider sore throat, viral syndrome, COVID, flu. Chest x-ray not indicated. Ibuprofen given for any symptomatic control. If workup is negative, we will safely discharged home with viral syndrome and if strep is positive we will discharge her on antibiotic orally. Clinically I have ruled out sepsis, shock, ACS, or any other critical pathology at this time.. 11:14 ED course: All swabs negative. We will safely discharge patient home at this time.. sp3 08/21 10:10 Order name: Strep sp3 08/21 10:10 Order name: SARS RAPID; Complete Time: 11:13 sp3 08/21 10:10 Order name: Flu; Complete Time: 11:13 sp3 08/21 11:12 Order name: Throat Culture EDMS Administered Medications: 10:17 Drug: Ibuprofen PO 600 mg PO once Route: PO; ko1 Disposition Summary: 08/21/23 11:14 Discharge Ordered Notes: Location: Home sp3 Condition: Stable sp3 Diagnosis - Viral syndrome, upper respiratory infection sp3 Followup: sp3 - With: Private Physician - When: Upon discharge from the Emergency Department - Reason: Continuance of care Discharge Instructions: - Discharge Summary Sheet sp3 - Viral Illness, Adult sp3 Forms: - Medication Reconciliation Form sp3 - Thank You Letter sp3 - Antibiotic Education sp3 - Prescription Opioid Use sp3 - Patient Portal Instructions sp3 - Leadership Thank You Letter sp3 Signatures: Dispatcher [employer] EDMS Cary Meza MD MD sp3 Mi Trinh, RN RN ko1
[2023-08-21 11:47] VITALS: BP 150/99; TEMP 98; O2SAT 99
== END ==
LOC: ER 10:06
DX: J06.9 Acute upper respiratory infection, unspecified (principal); B34.9 Viral infection, unspecified; Z11.52 Encounter for screening for COVID-19
CPT/HCPCS: 36415; 87070; 87081; 87804; 87811

== ENCOUNTER 2023-09-30 23:34 | Emergency (ER) | payer SELFPAY ==
--- OUTSIDE RECORDS SUMMARY | 2023-09-30 23:41 | XMS REPORT | Continuity of Care Document ---
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 X DEON NUNEZ [facility] ERT [id number] General acute hospital 2021-05-05 13:22:00 2021-05-05 14:48:00 Emergency Deon Nunez [facility] 1.2.840.114 350.1.13.10 4.2.7.2.686 [id number] General acute hospital 2021-05-05 00:00:00 2021-05-05 00:00:00 Orders Only Doctor Unassigned, Jourdanton [facility] 1.2.840.114 350.1.13.10 4.2.7.2.686 [id number] General acute hospital 2019-12-15 17:11:56 2019-12-15 18:04:00 Emergency Kp [facility] 1.2.840.114 350.1.13.10 4.2.7.2.686 [id number] [id number] 2019-12-15 17:11:56 2019-12-15 18:04:00 Emergency Kp [facility] 1.2.840.114 350.1.13.10 4.2.7.2.686 [id number] General acute hospital 2019-12-15 17:11:56 2019-12-15 17:11:56 Emergency X Kp GILLILAND [facility] ERT [id number] General acute hospital 2019-10-25 18:31:31 2019-10-25 19:21:00 Emergency Kristin Miller [facility] 1.2.840.114 350.1.13.10 4.2.7.2.686 [id number] [id number] 2019-10-25 18:31:31 2019-10-25 19:21:00 Emergency Kristin Miller [facility] 1.2.840.114 350.1.13.10 4.2.7.2.686 [id number] 084 [id number] General acute hospital 2019-10-25 18:31:31 2019-10-25 18:31:31 Emergency X KRISTIN MILLER [facility] ERT [id number] General acute hospital 2019-08-13 13:30:00 2019-08-13 14:36:00 Emergency Floridalma Evans [facility] 1.2.840.114 350.1.13.10 4.2.7.2.686 [id number] [id number] 2019-08-13 13:30:00 2019-08-13 14:36:00 Emergency Floridalma Evans [facility] 1.2.840.114 350.1.13.10 4.2.7.2.686 [id number] General acute hospital 2019-08-13 13:30:00 2019-08-13 14:36:00 Emergency X FLORIDALMA EVANS [facility] ERT [id number] General acute hospital 2019-07-22 13:42:11 2019-07-22 19:02:00 Emergency Unknown, Attending Lisa Morfin [facility] 1.2.840.114 350.1.13.10 4.2.7.2.686 [id number] 2019-07-22 13:42:11 2019-07-22 19:02:00 Emergency X LISA MORFIN [facility] ERT [id number] General acute hospital 2019-07-22 13:42:11 2019-07-22 19:02:00 Emergency Unknown, Attending Lisa Morfin [facility] 1.2.840.114 350.1.13.10 4.2.7.2.686 [id number] [id number] General acute hospital 2019-07-13 20:17:19 2019-07-13 21:48:00 Emergency X HENRY OWEN [facility] ERT [id number] General acute hospital 2019-07-13 20:17:19 2019-07-13 21:48:00 Emergency Henry Owen [facility] 1.2.840.114 350.1.13.10 4.2.7.2.686 [id number] General acute hospital 2019-07-10 14:26:03 2019-07-10 16:33:00 Emergency X DEBBIE PAYTON [facility] ERT [id number] General acute hospital 2019-07-10 14:26:03 2019-07-10 16:33:00 Emergency Debbie Payton [facility] 1.2.840.114 350.1.13.10 4.2.7.2.686 [id number] General acute hospital 2019-07-04 19:09:02 2019-07-04 22:51:00 Emergency X LISA MORFIN [facility] ERT [id number] General acute hospital 2019-06-30 10:33:08 2019-06-30 13:10:00 Emergency X DEON NUNEZ [facility] ERT [id number] General acute hospital 2019-05-25 11:58:19 2019-05-25 15:37:00 Emergency X DEON NUNEZ [facility] ERT [id number] General acute hospital 2019-04-09 22:29:37 2019-04-09 23:28:00 Emergency X FLORIDALMA EVANS [facility] ERT [id number] General acute hospital 2019-01-21 18:38:01 2019-01-21 19:59:00 Emergency Le Ramirez [facility] 1.2.840.114 350.1.13.10 4.2.7.2.686 [id number] 084 [id number] 2019-01-21 18:38:01 2019-01-21 19:59:00 Emergency Le Ramirez [facility] 1.2.840.114 350.1.13.10 4.2.7.2.686 [id number] 084 [id number] General acute hospital Results Test Description Test Time Test Comments Results Result Co mments Source TSH, THIRD [id number] 23:53:27* Test Item Value Reference Range Interpretation Comme [facility] TSH, THIRD GENERATION (test code = 2821) 11.100 UIU/ML 0.400-4.100 H COMPREHENSIVE METABOLIC [id number] 23:46:03* Test Item Value Reference Range Interpretation Comme [facility] GLUCOSE (test code = 2217) 97 MG/DL 70-99 BUN (test code = 2208) 7 MG/DL 6-20 CREATININE (test code = 2214) 0.61 MG/DL 0.60-1.30 eGFR (2020 CKD-EPI) (test code = 73149) 110 ML/MIN/1.73 >60 CALC BUN/CREAT (test code [...] 13 U/L 5-40 CBC W/AUTO DIFF WITH [id number] 08:48:44* Test Item Value Reference Range Interpretation [...] 0.00-0.10 ABS NUCLEATED RBCS (test code = 55374) 0.00 K/UL 0.00-0.11 UNLESS OTHER MONTOYA INDICATED, ALL TESTING PERFORMED AT [facility] [address] [place] [address] CARRIER PACKER: JATIN FELIPE M.D. CLIA NUMBER [id number] [place]. [id number] 01:13:06* Test Item Value Reference Range Interpretation Comme nts TRANSFERRIN (test code = 4936) 315 MG/DL 200-360 UNLESS OTHERWISE INDICATED, ALL TESTING PERFORMED AT [facility] [address] [place] [address] CARRIER PACKER: JATIN FELIPE M.D. CLIA NUMBER [id number] [place]. [id number] LIPID [id number] 01:12:48* Test Item Value Reference Range Interpretation [...] SPECIMENS. FOR MOREINFORMATION, SEE CLIENT ANNOUNCEMENT AT [email or web address] RISK RATIO LDL/HDL (test code = 2238) 1.34 RATIO <3.22 COMPREHENSIVE METABOLIC [id number] 01:12:48* Test Item Value Reference Range Interpretation Comme nts GLUCOSE (test code = 2217) 92 MG/DL 70-99 BUN (test code = 2208) 15 MG/DL 6-20 CREATININE (test code = 2213) 0.65 MG/DL 0.60-1.30 eGFR (2020 CKD-EPI) (test code = ) 108 ML/MIN/1.73 >60 CALC BUN/CREAT (test code [...] IRON BINDING CAPACITY AND IRON AND % [id number] 01:12:48* Test Item Value Reference Range Interpretation Comme nts IRON, SERUM (test code = 2221) 51 UG/DL 37-145 UNSATURATED IBC (test code = 54307) 356 UG/DL 112-347 H CALC TOTAL IBC (test code = 2076) 407 UG/DL 250-450 CALC % IRON SAT (test code = 2078) 13 % 20-50 L [id number] 00:59:24* Test Item Value Reference Range Interpretation Comme nts FERRITIN (test code = 2074) 20 NG/ML 13-200 HEMOGLOBIN [id number] 03:08:40* Test Item Value Reference Range Interpretation Comme nts HEMOGLOBIN A1c (test code = 02952) 5.5 % 4.2-5.6 CBC W/AUTO DIFF WITH [id number] 02:29:36* Test Item Value Reference Range Interpretation [...] 0.00-0.10 ABS NUCLEATED RBCS (test code = 71543) 0.00 K/UL 0.00-0.11 DRUGS OF [id number] 05:03:00* Test Item Value Reference Range Interpretation [...] 200 ng/mL Opiates 300 ng/mL URINALYSIS WITH [id number] 04:56:00* Test Item Value Reference Range Interpretation [...] (test code = USPERM) /HPF NONE URINE [id number] 04:53:00* Test Item Value Reference Range Interpretation [...] the FDA and the [employer] (CAP) are more stringent than those required for this test. Therefore, the result should be interpreted with caution and close attention to other clinical and epidemiological data [id number] 16:00:00* Test Item Value Reference Range Interpretation Comme nts SALICYLATE (test code = 94B) <3.0 mg/dL 15.0-30.0 L LIVER [id number] 15:49:00* Test Item Value Reference Range Interpretation [...] code = 30A) 16 IU/L See_Comment [Automated clipkita ge] The system which generated this result transmitted reference range: <=33. The reference range was not used to interpret this result as normal/abnormal. ALT (test code = 31A) <7 IU/L 10-49 L [id number] 15:48:00* Test Item Value Reference Range Interpretation Comme nts ACETAMINPH (test code = 94M) <0.2 mg/dL 1.2-2.5 L ALCOHOL BLOOD (ETOH)2022-11-04 15:48:00* Test Item Value Reference Range Interpretation Comme nts ETOH (test code = HALC) ETHANOL The result is to be used only for medical purposes ALCOHOL (test code = 56A) <10 mg/dL See_Comment [Automated [employer]kita ge] The system which generated this result transmitted reference range: <=10. The reference range was not used to interpret this result as normal/abnormal. AMMONIA [id number] 15:48:00* Test Item Value Reference Range Interpretation [...] (test code = MDIFF) NO BASIC METABOLIC [id number] 15:31:00* Test Item Value Reference Range Interpretation [...] mg/dL 8.3-10.6 XR FOOT LEFT COMPLETE 3 [id number] 15:11:04 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 CENTERName: RODRIGO JONES : 1975 Sex: FEXAMINATION:XR ANKLE LEFT COMPLETE 3 VIEWSCLINICAL INDICATION:Female, 47 years old with Sprain of jointCOMPARISON: NoneFINDINGS:Three view(s) of the ankle obtained.Joint spaces: Anatomic.Bones: No acute fractures noted. Old healed fractures of the distal tibia and fibular noted.Soft tissues: Unremarkable.IMPRESSION: No acute findings.Electronically signed by: Nikko Santiago MD 11/04/2022 3:10 PM CDT 0199VC3IYOCAJV BEDSIDE [id number] 11:51:00* Test Item Value Reference Range Interpretation Comme nts GLUCOSE BEDSIDE TESTING (karen t code = GLUBED) 79 MG/DL 70-119 N GLUCOSE BEDSIDE [id number] 06:23:00* Test Item Value Reference Range Interpretation Comme nts GLUCOSE BEDSIDE TESTING (karen t code = GLUBED) 80 MG/DL 70-119 N BASIC METABOLIC [id number] 05:12:00* Test Item Value Reference Range Interpretation [...] 2.0 <2.0 indicates None DetectedPerformed At: [facility] [address] [place], [place] [id number] Kyle L MD Ph:[phone] GLUCOSE BEDSIDE [id number] 19:51:00* Test Item Value Reference Range Interpretation Comme nts GLUCOSE BEDSIDE TESTING (karen t code = GLUBED) 129 MG/DL 70-119 H OSMOLALITY [id number] 17:56:00* Test Item Value Reference Range Interpretation Comme nts OSMOLALITY SERUM (test code = OSMO) 269 mOsm/kg 275-300 L THYROID STIMULATING [id number] 17:56:00* Test Item Value Reference Range Interpretation Comme nts THYROID STIMULATING HORMONE (test code = TSH) 4.190 mc IU/ML 0.340-4.820 N GLUCOSE BEDSIDE [id number] 15:49:00* Test Item Value Reference Range Interpretation [...] code = VALP) 37.5 mcG/ML 50.0-100.0 L [id number] 14:26:00* Test Item Value Reference Range Interpretation Comme nts AMMONIA (test code = AMM) 29.0 mcMOL/L 11.0-32.0 N GLUCOSE BEDSIDE [id number] 11:51:00* Test Item Value Reference Range Interpretation Comme nts GLUCOSE BEDSIDE TESTING (karen t code = GLUBED) 88 MG/DL 70-119 N GLYCOSYLATED HEMOGLOBIN (HA1C)2022-09-18 06:53:00* Test Item Value Reference Range Interpretation Comme nts GLYCOSYLATED HEMOGLOBIN (HA1 C) (test code = GLYHGB) 5.2 % IS-A1C 4.5-5.6 N ESTIMATED AVERAGE [id number] 06:53:00* Test Item Value Reference Range Interpretation [...] to interpret this result as normal/abnormal. UR [id number] 21:28:00* Test Item Value Reference Range Interpretation Comme nts UR SODIUM RANDOM (test code = JESUSITA) 93 mmol/L 40-200 N UR POTASSIUM RANDOM (test code = KU) 54.8 mmol/L 25-125 N NO ESTABLISHED NORMAL RANGES FOR RANDOM SPECIMENS. UR CHLORIDE RANDOM (test code = CLU) 164 mmol/L 110-150 H UR OSMOLALITY [id number] 21:28:00* Test Item Value Reference Range Interpretation Comme nts UR OSMOLALITY RANDOM (test c ode = OSMOU) 475 mOsm/kg 100-1400 N CBC W/O [id number] 20:05:00* Test Item Value Reference Range Interpretation [...] = MPV) 9.5 fL 6.8-11.2 N LACTIC [id number] 19:35:00* Test Item Value Reference Range Interpretation Comme nts LACTIC ACID (test code = LACT) 1.0 mmol/L 0.4-2.0 N HCG SERUM [id number] 19:31:00* Test Item Value Reference Range Interpretation Comme nts HCG SERUM QUAL (test code = HCGQL) Negative SCREEN NEG - CT HEAD/BRAIN W/O [id number] 18:59:00 [facility] : 1975 Sex: F Patient Name: BHUMIKA JONES Unit No: [id number] EXAMS: CPT CODE: [id number] CT HEAD/BRAIN W/O CONT 93291 Location: H3 CT head, conducted on 09/17/22 [...] MD Dictated Date/Time: 09/17/2022 (1858) Technologist: VERO Jenkins)(CT) CTDI: DLP: Trnscrpt: 09/17/2022 (1858) [email or web address] DENIZ uLgo NAME: RADU JONES [address] PHYS: Valentina [place] [address] : 1975 AGE: 47 SEX: F LOC: MITCHELLED 20 PHONE #: [phone] EXAM DATE: 09/17/2022 STATUS: ADM IN FAX #: [phone] RAD #: D/C DT PAGE 1 Signed Report Patient Name: ROBERTSANTA CLAUS Unit No: [id number] EXAMS: CPT CODE: [id number] CT HEAD/BRAIN W/O CONT 36916 (Continued) OrigPrint D/T: S: 09/17/2022 (1901) DENIZ Lugo NAME: ROBERT[address] PHYS: Valentina [place] [address] : 1975 AGE: 47 SEX: F LOC: MITCHELLED 20 PHONE #: [phone] EXAM DATE: 09/17/2022 STATUS: ADM IN FAX #: [phone] #: D/C DT PAGE 2 Signed ReportURINALYSIS [id number] 16:28:00* Test Item Value Reference Range Interpretation [...] >0 /UL NONE-SQepi DRUGS OF ABUSE SCREEN [id number] 16:28:00* Test Item Value Reference Range Interpretation [...] interpret this result as normal/abnormal. TROP-I HIGH [id number] 16:26:00* Test Item Value Reference Range Interpretation [...] and URLs may vary bymethod. BASIC METABOLIC [id number] 16:25:00* Test Item Value Reference Range Interpretation [...] interpret this result as normal/abnormal. HEPATIC FUNCTION [id number] 16:25:00* Test Item Value Reference Range Interpretation [...] ode = CK) 92 Unit/L 26-192 N [id number] 16:25:00* Test Item Value Reference Range Interpretation Comme nts LIPASE (test code = LIP) 57 Unit/L 114-286 L - CT HEAD/BRAIN W/O [id number] 00:32:00 [facility] : 1975 Sex: F Patient Name: BHUMIKA JONES Unit No: [id number] EXAMS: CPT CODE: [id number] CT HEAD/BRAIN W/O CONT 49206 EXAM: - CT HEAD/BRAIN W/O CONT LOCATION: H57 HISTORY: 47 years-year old Female with sz TECHNIQUE: Computerized tomography images from the skull base to the vertex were obtained. Coronal andsagittal reformatted images are provided. This exam was performed according to our departmental dos e-optimization program, which includes automated exposure control, adjustment [...] (31) Technologist: Terry August CTDI: DLP: Trnscrpt: 09/17/2022(31) [email or web address] DENIZ Lugo NAME: ROBERT[address] PHYS: YASMIN - [place]im [place] [address] : 1975 AGE: 47 SEX: F LOC: Ginger.ERS PHONE #: [phone] EXAM DATE: 09/16/2022 STATUS: REG ER FAX #: [phone] RAD #: D/C DT PAGE 1 Signed Report Patient Name: BHUMIKA JONES Unit No: [id number] EXAMS: CPT CODE: [id number] CTHEAD/BRAIN W/O CONT 84715 (Continued) Orig Print D/T: S: 09/17/2022 (34) DENIZ Lugo NAME: ROBERT[address] PHYS: IGNACIO. - [place] [address] : 1975 AGE: 47 SEX: F LOC: B.ERS PHONE #: [phone] EXAM DATE: 09/16/2022 STATUS: REG ER FAX #: [phone] RAD #: D/C DT PAGE 2 Signed Report TROP-I HIGH [id number] 00:13:00* Test Item Value Reference Range Interpretation [...] and URLs may vary bymethod. COMPREHENSIVE METABOLIC [id number] 00:11:00* Test Item Value Reference Range Interpretation [...] interpret this result as normal/abnormal. CBC W/AUTO [id number] 23:59:00* Test Item Value Reference Range Interpretation [...] K/mm3 0.0-0.05 N - XR CHEST 1 [id number] 23:34:00 [facility] : 1975 Sex: F Sargent: E St: PRE -- Patient Name: BHUMIKA JONES Unit No: [id number] EXAMS: CPT CODE: [id number] XR CHEST 1 V 35815 EXAMINATION: - XR CHEST 1 V CLINICAL [...] By: [email or web address] Orig Print D/T: S: 09/16/2022 (6551) [facility] Cobb NAME: BHUMIKA JONES [address] [place] [address] Blvd PHYS: [email or web address].02 - Asim Jack MD, [place] [address] : 1975 AGE: 47 SEX: F LOC: GregorioERS PHONE #: [phone] EXAM DATE: 09/16/2022 STATUS: PRE ER FAX #: [phone] RAD NO: DC Dt: PAGE 1 Signed ReportCARBAMAZEPINE (TEGRETOL) 2022-09-15 06:12:00* Test Item Value Reference Range Interpretation Comme nts CARBAMAZEPINE (TEGRETOL) (test code = CARB) 1.5 ug/mL 4.0-12.0 L In conjunction w ith other antiepileptic drugs Therapeutic 4.0 - 8.0 Toxicity 9.0 - 12.0 Carbamazepine alone Therapeutic 8.0 - 12.0 Detection Limit = 2.0 <2.0 indicates None DetectedPerformed At: [facility] [address] [place], [place] [id number] Michael Reeves MD Ph:[phone] VALPROIC ACID (DEPAKENE)2022-09-15 06:12:00* Test Item Value Reference Range Interpretation Comme nts VALPROIC ACID (DEPAKENE) (te st code = VALP) 80.6 mcG/ML 50.0-100.0 N COMPREHENSIVE METABOLIC [id number] 06:00:00* Test Item Value Reference Range Interpretation [...] interpret this result as normal/abnormal. CBC W/AUTO [id number] 05:37:00* Test Item Value Reference Range Interpretation [...] NRBC#) 0.00 K/mm3 0.0-0.05 N GLUCOSE BEDSIDE [id number] 20:03:00* Test Item Value Reference Range Interpretation Comme nts GLUCOSE BEDSIDE TESTING (karen t code = GLUBED) 117 MG/DL 70-119 N DRUGS OF ABUSE SCREEN [id number] 11:42:00* Test Item Value Reference Range Interpretation [...] result as normal/abnormal. - CT HEAD/BRAIN W/O [id number] 11:37:00 [facility] : 1975 Sex: F Patient Name: BHUMIKA JONES Unit No: [id number] EXAMS: CPT CODE: [id number] CT HEAD/BRAIN W/O CONT 14020 EXAMINATION: - CT HEAD/BRAIN W/O CONT COMPARISON: [...] MD Dictated Date/Time: 09/14/2022 (1137) Technologist: ASUNCION CASTELLANOCTDI: DLP: Trnscrpt: 09/14/2022 (1137) [email or web address] DENIZ Lugo NAME: [facility] PHYS: Vladimir Menchaca MD [address] [place] [address] : 1975 AGE: 47 SEX: F [place] [address] LOC: [facility] PHONE #: [phone] EXAM DATE: 09/14/2022 STATUS: ADM IN FAX #: [phone] RAD #: D/C DT PAGE 1 Signed Report Patient Name: BHUMIKA JONES Unit No: [id number] EXAMS: CPT CODE: [id number] CT HEAD/BRAIN W/O CONT 57005 (Continued) Orig Print D/T: S: 09/14/2022 (1140) DENIZ Lugo NAME: [facility] PHYS: Vladimir Menchaca MD [address] [place] [address] : 1975 AGE: 47 SEX: Etta [place] [address] LOC: [facility] 10 PHONE #: [phone] EXAM DATE: 09/14/2022 STATUS: ADM IN FAX #: [phone] #: D/C DT PAGE 2 Signed ReportPT AND [id number] 06:51:00* Test Item Value Reference Range Interpretation [...] AVOIDED DUE TO POSSIBLE HEPARINCONTAMINATION HCG SERUM [id number] 06:51:00* Test Item Value Reference Range Interpretation [...] CK) 268 Unit/L 26-192 H CBC W/AUTO [id number] 03:43:00* Test Item Value Reference Range Interpretation [...] = NRBC#) 0.00 K/mm3 0.0-0.05 N URINALYSIS VENARDXL2243-05-15 03:41:00* Test Item Value Reference Range Interpretation [...] RARE /LPF NONE - XR CHEST 2 E3158-45-06 02:06:00 [facility]ON[facility] : 1975 Sex: F FAX: Suleman Carvalho [facility] [phone] [place]: [address]: REG Patient Name: BHUMIKA JONES Unit No: [id number] EXAMS: CPT CODE: [id number] XR CHEST 2 V [id number] EXAM: - XR CHEST 2 V HISTORY: Chest pain. COMPARISON: None available time of interpretation. FINDINGS: PA and lateral view of the chest is provided. Heart size and vas cularity are within normal limits. There is no [...] NadiyaMKM4 Orig Print D/T: S: 09/14/2022 (208) DENZI [place] NAME: ROB[address] PHYS: Suleman [place], [place] [address] : 1975 AGE: 47SEX: F LOC: [facility] PHONE #: [phone] EXAM DATE: 09/14/2022 STATUS: REG ERFAX #: [phone] RAD NO: DC Dt: PAGE 1 Signed ReportCOMPREHENSIVE METABOLIC XTNWK6529-83-29 12:49:00* Test Item Value Reference Range Interpretation [...] used to interpret this result as normal/abnormal. RRVLDGMMX8465-90-38 12:49:00* Test Item Value Reference Range Interpretation Comme nts MAGNESIUM (test code = MAG) 1.7 MG/DL 1.6-2.6 N CBC W/AUTO AXUZ1608-04-47 12:36:00* Test Item Value Reference Range Interpretation [...] 0.0-0.05 N PENDING RECEIPT OF SPECIMEN PER B.LAB.JENNIFER AT 09/13/22 1143URINALYSIS COMPLETE 2022-09-13 12:22:00* Test [...] RARE /LPF NONE DRUGS OF ABUSE SCREEN HL1715-99-45 00:33:00* Test Item Value Reference Range Interpretation [...] 300 ng/mL UA RFLX MICR CULT IF TCZWMPOER1417-97-33 00:30:00* Test Item Value Reference Range Interpretation [...] culture: Suprapubic PainSpecimen Description: CLEAN CATCHBASIC METABOLIC IZZHO2361-66-57 00:18:00* Test Item Value Reference Range Interpretation [...] 8.9 mg/dl 8.0-10.5 N HEPATIC FUNCTION PANEL D6230-25-82 00:18:00* Test Item Value Reference Range Interpretation [...] ALKP) 113 Units/L 50.0-136.0 N HCG SERUM TNEF8605-51-30 00:18:00* Test Item Value Reference Range Interpretation Comme nts HCG SERUM QUAL (test code = HCGQL) NEGATIVE NEGATIVE FRZMABG3429-83-58 00:18:00* Test Item Value Reference Range Interpretation Comme nts ALCOHOL (test code = ALC) 0.00 gm/dL 0.00-0.00 N ETHYL ALCOHOL VA SHARRI - INTERPRETATION: 0.050 GM/DL - NOT INTOXICATED 0.100 GM/DL - INTOXICATED 0.350-0.450 GM/DL - SEVERELY INTOXICATED 0.550 GM/DL- FATAL INTOXICATION Coronavirus 2019 nCoV Jzbfsbm3776-41-95 00:09:00* Test Item Value Reference Range Interpretation Comme nts Coronavirus 2019 nCoV Bedside (test code = LENZQ46PMBJO) Negative NEGATIVE Negative results should be treated as presumptive and ifinconsistent with clinical signs and symptoms, or necessaryfor patient management, should be tested with an alternativemolecular assay. Negative results do not preclude MBEH-JpZ-7cylwtvmzj and should not be used as the sole basis forpatient management decisions. Negative results should beconsidered in the context of a patient's recent exposures,history, presence of clinical signs and symptoms consistentwith COVID-19. CBC W/AUTO FGPZ6350-78-06 23:58:00* Test Item Value Reference Range Interpretation [...] X10 3uL 0.00-0.01 N COMP. METABOLIC PANEL (79026)2022-09-07 02:12:41* Test Item Value Reference Range Interpretation Comme nts NA (test code = 7022356022) 133 mmol/L 135-145 L K (test code = 3736809331) 4.4 mmol/L 3.5-5.0 CL (test code = 2701984607) 102 mmol/L 98-108 CO2 TOTAL (test code = 2431428995) 25 mmol/L 23-31 AGAP (test code = 3970564247) 6 2-16 BUN (test code = 4753084483) 22 mg/dL 7-23 GLUCOSE (test code = 9986531572) 97 mg/dL 70-110 CREATININE (test code = 3594711051) 0.40 mg/dL 0.50-1.04 L TOTAL BILI (test code = 0809090052) 0.3 mg/dL 0.1-1.1 CALCIUM (test code = 7638157953) 8.9 mg/dL 8.6-10.6 T PROTEIN (test code = 5111180593) 7.7 g/dL 6.3-8.2 ALBUMIN (test code = 1758801071) 4.0 g/dL 3.5-5.0 ALK PHOS (test code = 5993556269) 104 U/L 34-122 ALTv (test code = 1742-6) 15 U/L 5-35 AST(SGOT) (test code = 3673389318) 22 U/L 13-40 eGFR (test code = 0837827172) 170.4 mL/min/1.73m2 HANNAH (test code = HANNAH) [...] imaging tests). Lab Interpretation (test code = 56938-0) Abnormal [facility] WITH JBIP1931-27-23 02:01:20* Test Item Value Reference Range Interpretation Comme nts WBC (test code = 6690-2) 6.17 See_Comment [Automated Patient Conversation Media] The system which generated this result transmitted [...] 32.9 g/dL 31.6-35.1 RDW-SD (test code = 60487-8) 48.1 fL 39.0-49.9 RDW-CV (test code = 788-0) 14.7 % 12.0-15.5 PLT (test code = 777-3) 272 See_Comment [Automated messa ge] The system which generated this result transmitted reference range: 166 - 358 10*3/?L. The reference range was not used to interpret this result as normal/abnormal. MPV (test code = 74400-7) 9.6 fL 9.5-12.9 NRBC/100 WBC (test code = 9999794098) 0.0 See_Comment [Automated Judobaby ssage] The system which generated this result transmitted reference range: 0.0 - 10.0 /100 WBCs. The reference range was not used to interpret this result as normal/abnormal. NRBC x10^3 (test code = 8421213615) See_Comment [Automated messa ge] The system which generated this result transmitted reference range: 10*3/?L. The reference range was not used to interpret this result as normal/abnormal. GRAN MAT (NEUT) % (test code = 770-8) 42.2 % IMM GRAN % (test code = 4483419628) 0.20 % LYMPH % (test code = 736-9) 38.2 % MONO % (test code = 5905-5) 12.6 % EOS % (test code = 713-8) 5.8 % BASO % (test code = 706-2) 1.0 % GRAN MAT x10^3(ANC) (test code = 1226740263) 2.60 10*3/uL 1.88-7.09 IMM GRAN x10^3 (test code = 7792880757) 0.00-0.06 LYMPH x10^3 (test code = 731-0) 2.36 10*3/uL 1.32-3.29 MONO x10^3 (test code = 742-7) 0.78 10*3/uL 0.33-0.92 EOS x10^3 (test code = 711-2) 0.36 10*3/uL 0.03-0.39 BASO x10^3 (test code = 704-7) 0.06 10*3/uL 0.01-0.07 Lab Interpretation (test code = 08437-7) Abnormal [facility] WO JZWBDLNK2273-45-31 22:34:12 Impression: 1. ?No acute intracranial process. [...] mastoidair cells, paranasal sinuses are within normallimits. [facility] [[email or web address]], Radiant Results Inft User - 07/22/2019 4:35 [...] he patient. Please correlate with history and physicalexamination.[facility]XR CERVICAL SPINE 2 LN7892-64-18 22:29:40No acute osseous abnormality. Preliminary Report Dictated [...] reviewed this study and agree with theabove report.[facility] HospitalCBC WITH DOWFXJXNEWUJ6486-41-17 21:46:00* Test Item Value Reference Range Interpretation [...] 32.2 g/dL 31.6-35.1 RDW-SD (test code = 91273-9) 45.1 fL 39-49.9 RDW-CV (test code = 788-0) 14.6 % 12-15.5 PLT (test code = 777-3) See_Comment L [Automated messa ge] The system which generated this result transmitted reference range: 166 - 358 10*3/?L. The reference range was not used to interpret this result as normal/abnormal. MPV (test code = 47167-8) 9.0 fL 9.5-12.9 L NRBC/100 WBC (test code = 4509836360) See_Comment [Automated Judobaby ssage] The system which generated this result transmitted reference range: 0.0 - 10.0 /100 WBCs. The reference range was not used to interpret this result as normal/abnormal. NRBC x10^3 (test code = 9720508495) <0.01 See_Comment [Automated messa ge] The system which generated this result transmitted reference range: 10*3/?L. The reference range was not used to interpret this result as normal/abnormal. GRAN MAT (NEUT) % (test code = 770-8) 51.3 % IMM GRAN % (test code = 0994517863) 0.40 % LYMPH % (test code = 736-9) 24.4 % MONO % (test code = 5905-5) 23.1 % EOS % (test code = 713-8) 0.4 % BASO % (test code = 706-2) 0.4 % GRAN MAT x10^3(ANC) (test code = 3908927514) 2.48 10*3/uL 1.88-7.09 IMM GRAN x10^3 (test code = 0371325135) <0.03 0-0.06 LYMPH x10^3 (test code = 731-0) 1.18 10*3/uL 1.32-3.29 L MONO x10^3 (test code = 742-7) 1.12 10*3/uL 0.33-0.92 H EOS x10^3 (test code = 711-2) <0.03 0.03-0.39 L BASO x10^3 (test code = 704-7) <0.03 0.01-0.07 Lab Interpretation (test code = 23154-9) Abnormal [facility] 2 VR9342-87-88 03:28:03No acute osseous abnormality. Preliminary Report Dictated [...] this study and agree withthe above report. [facility] HospitalValproic Acid Ittsh5142-76-05 08:03:22* Test Item Value Reference Range Interpretation Comme nts Valproic Acid Level (test co de = Valproic Acid Level) 57.6 ug/mL(g) 50.0-100.0 Hemoglobin M6p1768-45-22 09:36:00* Test Item Value Reference Range Interpretation Comme nts Hemoglobin A1c (test code = Hemoglobin A1c) 5.0 % 4.8-5.9 Non Diabetic 4.8-5.9%Diabetic <7.0% CT Shoulder w/o Contrast Kued9912-33-83 16:49:13Patient: BHUMIKA JONES Date/Time01/09/2019 16:14 CDTReason for [...] Adam FSigned (Electronic Signature): 01/09/2019 4:49 pmRPR Fbdjkqkejtk9648-41-33 21:33:20* Test Item Value Reference Range Interpretation [...] 04-23-2020 N XR Shoulder Complete 2+ Views Dkof5737-65-39 15:41:25Patient: BHUMIKA JONES Date/Time01/07/2019 15:25 CDTReason for [...] CSigned (Electronic Signature): 01/07/2019 3:41 pmThyroid Stimulating Rlapkqq5691-38-83 03:07:04* Test Item Value Reference Range Interpretation Comme nts TSH (test code = TSH) 9.650 mIU/mL 0.270-4.200 H Lipid Nxjms8673-88-68 03:07:03* Test Item Value Reference Range Interpretation Comme nts Cholesterol Total (test code = Cholesterol Total) 199 mg/dL 0-200 RISK OF HEART DISEASEPublished by [place] Heart Association Analyte Optimal Borderline Increased RiskCHOL [...] is LDL/HDL Ratio=LDL Calc/HDL Chol HCG Qualitative Clyut1803-09-24 02:33:13* Test Item Value Reference Range Interpretation Comme nts HCG, Serum Qual (test code = HCG, Serum Qual) Negative Lot # (test code = Lot #) [id number] N Expiration Dt (test code = Expiration Dt) 2020-04-23 N Neg Control (test code = Neg Control) Negative Pos Control (test code = Pos Control) Positive Internal QC (test code = Int ernal QC) Acceptable Drugs of Abuse Urine 84353-44-88 18:58:11* Test Item Value Reference Range Interpretation [...] = Cannabinoid Screen Ur) Negative Negative Alcohol Chbaz1253-15-49 18:47:34* Test Item Value Reference Range Interpretation Comme nts Ethanol Level (test code = Ethanol Level) <0.00 g/dL 0.00-0.01 Intoxicated 0.08 0 g/dL or more Ethanol Inst (test code = Ethanol Inst) <0 N Comprehensive Metabolic Zhskl4913-86-00 18:47:33* Test Item Value Reference Range Interpretation [...] A/G Ratio) 1.0 ratio N Comprehensive Metabolic Zwlhu5665-97-41 18:47:33* Test Item Value Reference Range Interpretation [...] is not provided, and the patient is -H[place]uran, multiply by 1.212. If sex is not [...] the National Kidney Foundation, http://nkdep.nih.gov Comprehensive Metabolic Tgrht7609-02-13 18:47:33* Test Item Value Reference Range Interpretation [...] is not provided, and the patient is -Honduran, multiply by 1.212. If sex is not [...] is not provided, and the patient is -[place]uran, multiply by 1.212. If sex is not [...] Kidney Foundation, http://nkdep.nih.gov Complete Blood Count with Hpyrsktmujcw1382-64-12 18:15:23* Test Item Value Reference Range Interpretation [...] code = IPF) 0 % N Automated Bxcdctcnvrfe7521-70-14 18:15:23* Test Item Value Reference Range Interpretation Comme nts Neutro Auto (test code = Sunny tro Auto) 42.1 % 36.0-70.0 Lymph Auto (test code = Lymph Auto) 40.0 % 12.0-44.0 [place]ford Auto (test code = [place]ford Auto) 12.2 % 0.0-11.0 H Eos, Auto (test code = Eos, Auto) 4.9 % 0.0-7.0 Basophil Auto (test code = B asophil Auto) 0.6 % 0.0-2.0 Neutro Absolute (test code = Neutro Absolute) 2.2 x10 1.6-7.4 Lymph Absolute (test code = Lymph Absolute) 2.06 x10 .50-4.60 [place] Absolute (test code = M richa Absolute) .63 x10 .00-1.20 Eos Absolute (test code = Eo s Absolute) 0.25 x10 0.00-0.74 Baso Absolute (test code = B aso Absolute) 0.03 x10 0.00-0.21 IG Ygsvc6798-30-07 18:15:23* Test Item Value Reference Range Interpretation Comme nts IG (test code = IG) 0.2 % 0.0-5.0 IG Abs (test code = IG Abs) 0 x10 N Notes Date/Time Note Provider Source 2022-10-11 12:29:00 [id number] KXoOlLZPdY9yQ+ppT6pWIqSCujksA IcaSYsYbarUWNO2H3GJI30PFYGg1805-04-53Y24:29:00 [facility] ([facility])Hospitalist Discharge SummaryREPORT#:[id number] REPORT STATUS: SignedDATE:10/11/22 TIME: 1229 PATIENT: BHUMIKA JONES UNIT #: [id number]#: [id number] [address] [birth year] AGE: 47 SEX: F ATTEND: [...] patient this morning with the help of lead quality technician and she said that he lives [...] capillary refill, normal range of motion, no edemaNeuro/DESIGN TRANSFERRER: altered mental status, alert Discharge Instructions PCPDischarge to: Home/Self CareAdditional Discharge Routines: PCP Follow-UpDiet: Resume Home Diet/FeedsActivity: As Tolerated Follow-up AppointmentsPCP follow-up: PCP: No Primary or Family Physician PCP follow up timeframe: In 6 days at 1230 [facility] #:[id number] OF REPORTDSDischarge ucdqskj7111-19-92Q82:29:00B.JDBE29327110-2443JYNo ailable for patient jpqjOJGPFVSNAKRCTJ5068-18-39Z45:30:16 [facility] 2022-09-18 17:27:00 [id number] CqXzESxNW8IXAXLhGKLHtKElxWzo8 RUei1ZaDNS+Xi7YdFXyvtsMe3vO8369-39-19F82:27:00 [facility] ([facility])Electroencephalogram-EEGREPORT#:[id number] REPORT STATUS: SignedDATE:09/18/22 TIME: 1727 PATIENT: BHUMIKA JONES UNIT #: [id number]#: [id number] [address] [birth year] AGE: 47 SEX: F ATTEND: Marly Mendenhall [facility] AUTHOR: Nelia Parker MD * ALL edits [...] DAILY 09/18 0900 CAN (RisperDAL) PO 10/18 09 Acetaminophen 650 MG Q6H PRN PRN 09/17 1930 AC (TYLENOL) RECTAL 10/17 1930 Carbamazepine 400 [...] open eyes (commands were obtained using a rehabilitation caseworker) with opening the eyes the patient would [...] except with the patientmentioned. at 1736 RPT #:[id number] OF REPORTDIDiagnostic eugtrmz0097-92-83R65:27:00B.MGAJ88129139-5944TVWr ailable for patient mfacASPWCHWICIRAAA3380-46-81N61:37:11 [facility] 2022-09-18 14:24:00 [id number] JWBBtMQS06BR5hft5Socj7nL2PdgO Jh6sl4+Ny7uKvASjOXrRKO0GVfr5379-52-07V83:24:00 [facility] ([facility])Neurology Consultation NoteREPORT#:[id number] REPORT STATUS: SignedDATE:09/18/22 TIME: 1424 PATIENT: SILAS JONESPCION UNIT #: [id number]#: [id number] ROOM/BED: 267[address]1DOB: [birth year] AGE: 47 SEX: F ATTEND: Mendenhall,Marly [facility] AUTHOR: Nelia Parker MD * ALL edits or amendments must be made on the electronic/computer document * See AddendumHistory of Present Illness HPIRequesting clinician: see consult orderReason for consult:"AMS"Chief complaint:wanting to go home for her familyHPI:47-year-old female Venezuelan speaking only who was brought into the [...] refilled and the patient was sent to [facility]. Reportedly per the patient she did not like the retirement and does not like the food there [...] or seizures prior to herbeing in the retirement. Per the patient she get upset that [...] to her family. Only ambulance records from [facility] for patient who was brought in here [...] available to confirm the history and the retirement location is unknown to contact someone who [...] MG 09/18 09/18 09/17 09/17 0553 0553 9506 1517Chemistry Hemoglobin A1c (4.5 - 5.6 % IS-A1C) [...] - 8.0 pH UNITS) 6.5 Ur Specific [place] (1.001 - 1.035 SG) 1.013 Urine Protein [...] in the past ornot. at 1652 RPT #:[id number] OF REPORTPNGzdlhldxfzxa2614-97-96E99:24:00B.PDOC2 4844866-7875HEVcnvaaogz for patient kgmuQUJAXUOJDWSUHP6954-68-62C38:10:17 [facility] 2022-09-18 11:44:00 [id number] ApWO1kWhfCLwJSiGAl5R90eSzTpGs MbAZUbb0o/dPQyRnrt6FMVzXEKj6092-72-31H47:44:00 [facility] ([facility]Hospitalist Progress NoteREPORT#:[id number] REPORT STATUS: SignedDATE:09/18/22 TIME: 1144 PATIENT: BHUMIKA JONES UNIT #: [id number]#: [id number] ROOM[facility]BED: [facility]DOB: [birth year] AGE: 47 SEX: F ATTEND: Marly Mendenhall [facility] AUTHOR: Marly Mendenhall MD * ALL edits or amendments must be made on the electronic/computer document * SubjectiveChief complaint:Altered mental statusHPI:This is a 47-year-old female with past medical history of schizophrenia seizure disorder she was brought into the ER because of altered mental status she had decreased responsiveness from her the patient this morning with the help of lead quality technician and she said that he lives [...] capillary refill, normal range of motion, no edemaNeuro/DESIGN TRANSFERRER: altered mental status, alert Diagnosis, Assessment Plan [...] afternoon if remains stable at 1147 RPT #:[id number] OF REPORTPRProgress ejwe5665-80-98Z03:44:00B.SEBQ86222382-7329THPqfrv able for patient eqkzSGDGFALLQTNSIZ3974-20-45V55:47:26 [facility] 2022-09-18 01:06:00 [id number] 0NfIkHeeeybr8sXK1n8JyGS5HAVir yhfD9yOI8KaRv1FU+grM7prS/kG5378-57-96Z19:06:00 [facility] ([facility])Hospitalist History PhysicalREPORT#:[id number] REPORT STATUS: SignedDATE:09/18/22 TIME: 0106 PATIENT: BHUMIKA JONES UNIT #: [id number]#: [id number] [address] [birth year] AGE: 47 SEX: F ATTEND: Marshall Orellana [facility] AUTHOR: Nelia Moffett MD * ALL edits [...] - 8.0 pH UNITS) 6.5 Ur Specific [place] (1.001 - 1.035 SG) 1.013 Urine Protein [...] awakeCardiovascular: regular rate rhythmRespiratory: decreased breath soundsAbdomen: softNeuro/DESIGN TRANSFERRER: altered mental status, alert Diagnosis, Assessment PlanFree Text A P:HyponatremiaDo a work-upContinue Ringer lactate 50 cc/h monitor electrolytes Metabolic encephalopathyNeuro watchTreat underlying condition SchizophreniaContinue home medication once confirmed Seizure disorderContinue home medicationSeizure precaution DVT prophylaxisLovenoxAdvanced directive discussedMedication reviewed and reconciledBefore midnightI will sign off at 6 AM today further management by incoming thereafter at 0110 RPT #:[id number] OF REPORTHPHistory and physical hvkgorjkqeg7645-29-93H11:06:00B.YYFW52160376-6654 AVAvailable for patient dvwpYYOEKERMJXBWBH9353-54-42K69:10:56 [facility] 2022-09-17 14:34:00 [id number] HWz0/Kz9+t1hDZtmNXXAAwPaGsCMP MAaSKoX423GfTSIMRQ1Rh55R2yq7387-15-75C54:34:00 [facility] ([facility])EMERGENCY PROVIDER REPORTREPORT#:[id number] REPORT STATUS: SignedDATE:09/17/22 TIME: 1434 PATIENT: BHUMIKA JONES UNIT #: [id number]#: [id number] ROOM/BED: 267[address]1AGE: 47 SEX: F PCP PHYS: No Primary or Family PhysicianSERVICE AUTHOR: Valentina Samayoa MD * ALL edits or amendments must be made on the electronic/computer document * HPI-General Illness Free Text HPI NotesFree Text HPI Uizxf51-jlkf-vga female presents after possible seizure episode at [facility], will assessment patient is not fully oriented, and cannot provide history of theevents of today when asked multiple times. Additional history limited as the patient is tearful and not fully oriented. I spoke to the patient's sister Lewis Chiang, phone #[phone] by phone, who reports the patient has been missing from home for 8 days. Reports when the patient is medically cleared they can come get the patient. [facility] PMH: Seizures, schizophrenia. GeneralInitial Greet Date/Time 09/17/22 143 PresentationChief Complaint Altered mental status (possible seizure) Past Medical History - AdultStated Complaint SEIZUREAllergiesCoded Allergies:No Known Allergies (09/13/22) Home MedicationsActive ScriptscarBAMazepine (TEGretol) 400 MG PO Q12H carBAMazepine (TEGretol) 400 MG PO Q12H #120 TABS Prov: 09/13/22 Discontinued ScriptsrisperiDONE (RisperDAL) 3 MG PO BEDTIME risperiDONE (RisperDAL) 3 MG PO BEDTIME #30 TABS Prov: 09/13/22 DC: 09/14/22 1500 entry level account manager correctionDIVALPROEX DR TEOFILO CALLES) 1,000 MG PO DAILY DIVALPROEX DR TEOFILO CALLES) 1,000 MG PO DAILY #60 TABS Prov: 09/13/22 DC: 09/14/22 1459 entry level account manager correction Reported MedicationsDIVALPROEX ER (DEPAKOTE ER) 1,000 [...] - 8.0 pH UNITS) 6.5 Ur Specific [place] (1.001 - 1.035 SG) 1.013 Urine Protein [...] refill, drowsy, admitted, ultimately discharged back [facility]]-My EKG interpretation: I directly visualized [...] 19 09/17 153 Temp 97.9 09/17 1431 All vital signs available at the time of this entry have been reviewed. Condition Stable Clinical ImpressionClinical ImpressionPrimary Impression: Altered mental status Disposition DecisionAdmit Admit Physician Name Marshall Orellana MD )( Admission Accepts Yes )( Accepted Time 1634 )( Accepted Date 09/17/22 at 1114RPT #:[id number] OF REPORTEDEmergency department nrqkdu7768-71-85S08:34:00B.GHWK29135682-7286SJKqa ilable for patient vjhbELPMSCRCBPWUMT7027-61-01M24:14:25 [facility] 2022-09-17 00:19:00 [id number] cWkH3f1gdtq+/9FMdISqWV/sxJXR5 TZwaMBV+SjBBKra+/jQRq6sO5YE2747-46-04Z12:19:00 [facility] ([facility]ERGENCY PROVIDER REPORTREPORT#:[id number] REPORT STATUS: SignedDATE:09/17/22 TIME: 001 PATIENT: BHUMIKA JONES UNIT #: [id number]#: [id number] ROOM/BED:AGE: 47 SEX: F PCP PHYS: No Primary or Family PhysicianSERVICE AUTHOR: Asim Jack MD * ALL edits or amendments must be made on the electronic/computer document * HPI-General Illness GeneralInitial Greet Date/Time 09/16/22 4950 PresentationChief Complaint Anxiety, Not feeling well Free Text HPI NotesFree Text HPI NotesPatient brought in by EMS from local women retirement after increasing anxiety and concern for possible seizure activity. She was recently admitted here at [facility] and worked up for possible [...] 09/13/22 DC: 09/14/22 1500 entry level account manager correctionDIVALPROEX DR TEOFILO CALLES) 1,000 MG PO DAILY DIVALPROEX DR TEOFILO CALLES) 1,000 MG PO DAILY #60 TABS Prov: 09/13/22 DC: 09/14/22 1459 entry level account manager correction Reported MedicationsDIVALPROEX ER (DEPAKOTE ER) 1,000 [...] 15 Pulse 67 09/18 15 Resp 09/17 Review of Vital Signs Reviewed Free Text [...] % (Auto) (14.1 - 45.4 %) 29.6 [place] % (Auto) (2.5 - 11.7 %) 10.8 Eos % (Auto) (0.0 - 6.2 %) 2.9 Baso % (Auto) (0.0 - 2.1 %) 0.7 Gran # (2.0 - 13.7 k/mm3) 3.12 Lymph # (Auto) (0.6 - 3.8 K/mm3) 1.65 [place] # (Auto) (0.11 - 0.59 K/mm3) 0.60 [...] evidence of acute intracranial abnormality. Impression By: [email or web address] - Jess Iglesias, MDRADIOLOGY - XR CHEST 1 V 09/16 2305 Report Impression - Status: SIGNED Entered: 09/16/2022 2337 IMPRESSION:No acute cardiopulmonary disease.Impression By: NadiyaJH12 - Flo Jansen MD Lab Imaging StatementLaboratory radiographic studies reviewed and considered in the medical decision-making. ECG #1 InterpretationText/Dict [id number] EKG shows normal sinus rhythm and rate of 64. There is no acute ST elevation to suggest ischemia. Normal axis and intervals without significant hypertrophy or ectopy. Nonspecific T wave changes noted with low voltage. I personally reviewed and interpreted the EKG Re-Evaluation MDM Free Text MDM NotesFree Text MDM NotesPatient presents from local retirement with concern for possible seizure activity. I [...] for discharge. Patient urged to follow-up with [facility] in the next 2 to 3 [...] Pulse Ox 100 09/16 2256 B/P 136/82 09/166 B/P Mean 100 09/166 O2 Delivery Room air 09/17 2255 Temp 37.1 09/17 2255 Pulse 75 09/16 225 Resp 16 09/17 2255 Last Documented: Result [...] (Adult)Additional InstructionsPlease follow-up with [facility], [facility], and neurology. Return if any confusion, headache, stiff neck, fever, vomiting, or any other new concerns. Please take all your medications as instructedReferralsProvider Group: [facility] Follow-Up: 2-3 Days Provider Referral: Nelia Parker MD Follow-Up: 2-3 Days Address: [address] [place] [address] [address] [place] [address] Resource Referral: Savita [facility] Follow-Up: 2-3 Days Address: [address] [place] [address] at 0140RPT #:[id number] OF REPORTEDEmergency department licnyd8306-83-90G34:19:00B.[id number] ilable for patient snmsQMMXNBBXNIIOZJ0293-25-70Q05:41:10 [facility] 2022-09-15 12:06:00 [id number] WpkT5MS4xhjj7xEOo2nzFrvo2r+Qi 2V62uvSWsaPwBcbe0AmB3k7P9850016-98-94M58:06:00 [facility] ([facility])Electroencephalogram-EEGREPORT#:[id number] REPORT STATUS: SignedDATE:09/15/22 TIME: 1206 PATIENT: BHUMIKA JONES UNIT #: [id number]#: [id number] [facility] [birth year] AGE: 47 SEX: F ATTEND: Vladimir Forbes [facility] AUTHOR: Vickie Lewis MD * ALL edits [...] or electrographic seizures recorded. at 1209 RPT #:[id number] OF REPORTDIDiagnostic bppfgay8734-74-76W73:06:00B.[id number] ailable for patient xktyAMJUMDNAPOAEES5290-09-60U02:09:33 [facility] 2022-09-15 12:00:00 [id number] S61IXwsLBeJNAXaaYRee/SeeLoMjm NsWw4kRmS7BvgDi9eBB7Qhw/yM31407-74-91H31:00:00 [facility] ([facility])Hospitalist Discharge SummaryREPORT#:[id number] REPORT STATUS: SignedDATE:09/15/22 TIME: 1200 PATIENT: BHUMIKA JONES UNIT #: [id number]#: [id number] [facility] [birth year] AGE: 47 SEX: F ATTEND: Vladimir Forbes [facility] AUTHOR: Vladimir Forbes MD * ALL [...] evaluated for possible seizure episode. She is Venezuelan-speakingpatient only in public information officer was used. Patient denies to have any seizure episodes at home she just ran out of her medications and came to the hospital. Patient otherwise remains hemodynamically stable. However she is too drowsy to be discharged safely back home. I discussed the case with the patient.She wants her medications to be refilled and that she wants to go back to her retirement.I discussed with her about potential seizure episodes in the future use of medications compliance with the medications and further prescriptions. She states that she would management to the retirement. I have requested case management to evaluate [...] initial diagnosis and related differentials with the patient/resident care coordinator including RN. All concerns and questions are answered to the best of my abilities based on theavailable data.I have initiated the plan of care based on preliminary diagnosis,requested appopriate consultations with labs/imagings. Patient/resident care coordinator verbalizes understanding of the plan [...] timeframe: In 1-2 weeks at 1202 RPT #:[id number] OF REPORTDSDischarge fwmlfxp0051-73-05T53:00:00B.[id number] ailable for patient ezkvGFEUHYERSGQFTM2964-19-85I11:03:09 [facility] 2022-09-14 16:56:00 [id number] 8RgqA3UCF0+gc2a5G49ItPC1T5/2M WgNE3V2n1ecup+cwRvTIG91F/nV7228-64-67M29:56:00 [facility] ([facility])Neurology Consultation NoteREPORT#:[id number] REPORT STATUS: SignedDATE:09/14/22 TIME: 1655 PATIENT: BHUMIKA JONES UNIT #: [id number]#: [id number] [facility] [birth year] AGE: 47 SEX: F ATTEND: Jim Jaimes [facility] AUTHOR: Vickie Lewis MD * ALL edits [...] evaluated for possible seizure episode. She is Venezuelan-speakingpatient only in public information officer was used. Patient denies to have any [...] Result Date Time Pulse Ox 100 09/14 153 B/P 117/82 09/14 1534 B/P Mean 93.8 09/14 1534 Temp 97.9 09/14 153 Pulse 69 09/14 1534 Resp 16 09/14 [...] (SODIUM CHLORIDE 0.9% 1000 ML) 1,000 ML .C63V00X IV Trazodone HCl (DESYREL) 50 MG BEDTIME PRN PRN PO Sodium Chloride (SODIUM CHLORIDE 0.9% 1000 ML) 1,000 ML .D43A24J IV Carbamazepine (TEGretol) 400 MG BID PO Divalproex Sodium (DEPAKOTE DR) 1,000 MG BID PO (DC) Acetaminophen (TYLENOL) 650 MG Q6H PRN PRN PO Ondansetron HCl (ZOFRAN) 4 MG Q4H PRN PRN IV Ceftriaxone Sodium (ROCEPHIN) 1 GM Q24H IV (CAN) Lactated Ringer's (LACTATED RINGERS) 1,000 ML .S40O54N IV Ceftriaxone Sodium (ROCEPHIN) 1 GM X1ED [...] (0.88 - 1.13 INR Unit) 0.95 PTT ([place]) (24 - 37.7 SECONDS) 34.6 Laboratory Tests [...] % (Auto) (14.1 - 45.4 %) 33.6 [place] % (Auto) (2.5 - 11.7 %) 13.4 H Eos % (Auto) (0.0 - 6.2 %) 7.4 H Baso % (Auto) (0.0 - 2.1 %) 0.9 Gran # (2.0 - 13.7 k/mm3) 2.61 Lymph # (Auto) (0.6 - 3.8 K/mm3) 1.96 [place] # (Auto) (0.11 - 0.59 K/mm3) 0.78 [...] - 8.0 pH UNITS) 6.0 Ur Specific [place] (1.001 - 1.035 SG) 1.032 Urine Protein [...] cardiopulmonary process.Impression By: NadiyaMKM4 - Igor Almonte, [facility] SCAN - CT HEAD/BRAIN W/O CONT [...] deferred to primary team. at 1707 RPT #:[id number] OF REPORTASLkupjykfozri0098-64-37N25:56:00B.PDOC2 [id number] for patient nfgzMXZCBPVPOUSIOK0832-34-67K52:07:40 [facility] 2022-09-14 14:55:00 [id number]/JIADP4 z5Q1EWvX56pS4GFPqcekPP0eej7Z9 DMFgBRZtWUA8ywJG4TVSTFXOcV17369-51-68C24:55:00 [facility] ([facility])Hospitalist History PhysicalREPORT#:[id number] REPORT STATUS: SignedDATE:09/14/22 TIME: 1455 PATIENT: BHUMIKA JONES UNIT #: [id number]#: [id number] [facility] [birth year] AGE: 47 SEX: F ATTEND: Jim [...] evaluated for possible seizure episode. She is Venezuelan-speakingpatient only in public information officer was used. Patient denies to have any [...] (0.88 - 1.13 INR Unit) 0.95 PTT ([place]) (24 - 37.7 SECONDS) 34.6 Toxicology Valproic [...] % (Auto) (14.1 - 45.4 %) 33.6 [place] % (Auto) (2.5 - 11.7 %) 13.4 H Eos % (Auto) (0.0 - 6.2 %) 7.4 H Baso % (Auto) (0.0 - 2.1 %) 0.9 Gran # (2.0 - 13.7 k/mm3) 2.61 Lymph # (Auto) (0.6 - 3.8 K/mm3) 1.96 [place] # (Auto) (0.11 - 0.59 K/mm3) 0.78 [...] - 8.0 pH UNITS) 6.0 Ur Specific [place] (1.001 - 1.035 SG) 1.032 Urine Protein [...] cardiopulmonary process.Impression By: NadiyaMKM4 - Igor Almonte [facility] SCAN - CT HEAD/BRAIN W/O CONT [...] evaluated for possible seizure episode. She is Venezuelan-speakingpatient only in public information officer was used. Patient denies to have any [...] initial diagnosis and related differentials with the patient/resident care coordinator including RN. All concerns and questions are answered to the best of my abilities based on theavailable data.I have initiated the plan of care based on preliminary diagnosis,requested appopriate consultations with labs/imagings. Patient/resident care coordinator verbalizes understanding of the plan of care. 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 [...] plan of care. at 0449 at 0540RPT #:[id number] OF REPORTEDEmergency department mtkbea3736-83-59Z37:21:00B.[id number] ilable for patient jnuiHYBLUEACWNKLLV6357-34-11M66:49:55 [facility] 2022-09-13 20:34:00 [id number] Y41juoNwLFymilp4LPEw4rzE1lqJb UzJAKLBYbecvjeKWI7iOhJ27mhi6982-97-33R05:34:00 [facility] ([facility])EMERGENCY PROVIDER REPORTREPORT#:[id number] REPORT STATUS: SignedDATE:09/13/22 TIME: 2033 PATIENT: BHUMIKA JONES UNIT #: [id number]#: [id number] ROOM/BED: [facility]-WAGE: 47 SEX: F PCP PHYS: No [...] (RisperDAL) 3 MG PO DAILY at 1707RPT #:[id number] OF REPORTEDEmergency department upyksl6027-22-94D01:34:00B.[id number] ilable for patient dpalHLQCYBSBDOYNPK8059-89-47L25:08:12 [facility] 2022-09-13 09:58:00 [id number] XzmWvxlFbrH6HXBvbdeHLXZdVrtv6 tOHbMmZl8OlRUuErhpaHu3gT5bz0844-73-38B52:58:00 [facility] ([facility])EMERGENCY PROVIDER REPORTREPORT#:[id number] REPORT STATUS: SignedDATE:09/13/22 TIME: 09 PATIENT: BHUMIKA JONES UNIT #: [id number]#: [id number] ROOM/BED:AGE: 47 SEX: F PCP PHYS: No Primary or Family PhysicianSERVICE AUTHOR: Brad Woodall DO * ALL edits or amendments must be made on the electronic/computer document * HPI-General Illness Free Text HPI NotesFree Text HPI Vxpul37-wvmp-ztg female past medical history epilepsy out of [...] - 8.0 pH UNITS) 6.0 Ur Specific [place] (1.001 - 1.035 SG) 1.024 Urine Protein [...] % (Auto) (14.1 - 45.4 %) 34.0 [place] % (Auto) (2.5 - 11.7 %) 10.1 Eos % (Auto) (0.0 - 6.2 %) 2.7 Baso % (Auto) (0.0 - 2.1 %) 0.7 Gran # (2.0 - 13.7 k/mm3) 3.04 Lymph # (Auto) (0.6 - 3.8 K/mm3) 1.98 [place] # (Auto) (0.11 - 0.59 K/mm3) 0.59 [...] or a call to 911. at 1327RPT #:[id number] OF REPORTDell [facility]'s [facility] department jvgsgc8433-29-85O15:58:00B.[id number] ilable for patient puedJVPEATZFBQCBAM2766-68-76F87:28:04 [facility]
[2023-10-01] MEDS ORDERED: KETOROLAC 30 MG/ML INJ ONE (00:41)
[2023-10-01] MEDS ORDERED: PROMETHAZINE INJ 25 MG/ML AMP ONE (00:41)
[2023-10-01] MEDS ORDERED: NA CHLORIDE 0.9% 1,000 ML ONE (00:42)
[2023-10-01] MEDS ORDERED: DIPHENHYDRAMINE 50 MG/ML VIAL ONE (00:42)
[2023-10-01] MEDS ORDERED: METOCLOPRAMIDE 10 MG/2mL INJ ONE (00:42)
--- NOTE | 2023-10-01 04:59 | EDPHYS ---
Physician Documentation [facility] Name: Davida Hodges Age: 48 yrs Sex: Female : 1975 Arrival Date: 09/30/2023 Time: 23:34 Bed 4 Private MD: ED Physician Sebastian Silva HPI: 09/29 23:44 This 48 yrs old Female presents to ER via Unassigned with complaints of sp4 Vomiting, Dizziness, Headache. 23:45 Allergies: CARBAMAZEPINE DERIVATIVES; Depakote; Tegretol; PMHx: ADD/ADHD; Anxiety; sp4 Chronic pain; hemorrhoids; Schizophrenia; Bipolar disorder; Seizures;. 10/01 01:00 Patient presents with acute onset of headache and vomiting dizziness and complaint of sp4 generalized body aches. . Historical: - Allergies: 09/30 00:22 CARBAMAZEPINE DERIVATIVES; cm10 00:22 Depakote; cm10 00:22 Tegretol; cm10 - PMHx: 00:22 ADD/ADHD; Anxiety; Bipolar disorder; Chronic pain; hemorrhoids; Schizophrenia; Seizures;cm10 - Immunization history:: Adult Immunizations up to date. - Infectious Disease History:: Denies. - Social history:: Smoking status: Patient denies any tobacco usage or history of. - Family history:: not pertinent. ROS: 10/01 01:00 Constitutional: Positive headache, positive dizziness, positive vomiting, and sp4 positive body All other systems are negative, Exam: 01:00 Constitutional: This is a well developed, well nourished patient who is awake, alert, sp4 and in no acute distress. Head/Face: Normocephalic, atraumatic. Eyes: Pupils equal round and reactive to light, extra-ocular motions intact. Lids and lashes normal. Conjunctiva and sclera are not injected. Cornea within normal limits. Periorbital areas with no swelling, redness, or edema. ENT: Nares patent. No nasal discharge, no septal abnormalities noted. Tympanic membranes are normal and external auditory canals are clear. Oropharynx with no redness, swelling, or masses, exudates, or evidence of obstruction, uvula midline. Mucous membranes moist. Neck: Trachea midline, no thyromegaly or masses palpated, and no cervical lymphadenopathy. Supple, full range of motion without nuchal rigidity, or vertebral point tenderness. Chest/axilla: Normal chest wall appearance and motion. Nontender with no deformity. No lesions are appreciated. Cardiovascular: Regular rate and rhythm with a normal S1 and S2. No gallops, murmurs, or rubs. Normal PMI, no JVD. No pulse deficits. Respiratory: Lungs have equal breath sounds bilaterally, clear to auscultation and percussion. No rales, rhonchi or wheezes noted. No increased work of breathing, no retractions or nasal flaring. Abdomen/GI: Soft, with normal bowel sounds. No distension or tympany. No guarding or rebound. No evidence of tenderness throughout. Back: No spinal tenderness. No costovertebral tenderness. Skin: Warm, dry with normal turgor. Normal color with no rashes, no lesions, and no evidence of cellulitis. MS/ Extremity: Pulses equal, no cyanosis. Neurovascular intact. Full, normal range of motion. Neuro: Awake and alert, GCS 15, oriented to person, place, Cranial nerves II-XII grossly intact. Motor strength 5/5 in all extremities. Sensory grossly intact. Vital Signs: 09/30 00:22 BP 112 / 68; Pulse 68; Resp 18; Temp 98; Pulse Ox 100% on R/A; Pain 5/10; cm10 01:30 BP 143 / 84; Pulse 88; Resp 18; Pulse Ox 100% on R/A; km8 02:00 BP 103 / 77; Pulse 76; Resp 16; Pulse Ox 100% on R/A; km8 02:30 BP 142 / 88; Pulse 65; Resp 16; Pulse Ox 100% on R/A; km8 03:30 BP 98 / 67; Pulse 66; Resp 16; Pulse Ox 98% on R/A; km8 04:00 BP 97 / 66; Pulse 16; Resp 16; Pulse Ox 98% on R/A; km8 04:30 BP 113 / 70; Pulse 56; Resp 16; Pulse Ox 100% on R/A; km8 00:22 Pain Scale: Adult cm10 Ingrid Coma Score: 00:50 Eye Response: spontaneous(4). Motor Response: obeys commands(6). Verbal Response: km8 oriented(5). Total: 15. 10/01 01:00 Eye Response: spontaneous(4). Motor Response: obeys commands(6). Verbal Response: sp4 oriented(5). Total: 15. MDM: 09/29 23:46 Patient medically screened. sp4 09/30 04:58 ED course: PROCEDURE: CT Head Without Intravenous Contrast CLINICAL INDICATION: The sp4 patient is 48 years old and is Female; CONFUSED Bed Name: 4 TECHNIQUE: Axial computed tomography images of the head/brain without intravenous contrast. Sagittal and coronal reformatted images were created and reviewed. This CT exam was performed using one or more of the following dose reduction techniques: automated exposure control, adjustment of the mA and/or kV according to patient size, and/or use of iterative reconstruction technique. COMPARISON: 07/18/2023 CT head without contrast FINDINGS: BRAIN: No extra-axial fluid collection. No intracranial hemorrhage. No transtentorial herniation. No focal tobin-white matter differentiation abnormality. Stable appearance of 0.8 cm rounded calcification along the just right of midline inferior posterior falx from prior exam. MIDLINE SHIFT: None. VENTRICLES: Unremarkable No ventriculomegaly. BONES/JOINTS: No fracture of the calvarium or visualized facial bones. SOFT TISSUES: Unremarkable SINUSES: No masses, bony erosion or evidence of acute sinusitis. MASTOID AIR CELLS: Unremarkable as visualized. No mastoid effusion. IMPRESSION: No acute intracranial abnormality. Electronically signed by: Constantine Schultz MD 10/01/2023 02:21 AM. 10/01 01:02 Differential diagnosis: Nonspecific abd pain, gastritis, pancreatitis, viral sp4 gastroenteritis, gastroenteritis. Data reviewed: vital signs, nurses notes, old medical records, radiologic studies, CT scan. Consideration of Admission/Observation Escalation of care including admission/observation considered. ED course: Patient has improved after medications. Patient was explained that we do not see signs of any emergent medical condition. Patient is stable for discharge with her relatives. Old explanations were provided with linen attendant. . 09/30 01:13 Order name: CT Head Brain wo Cont sp4 09/29 23:46 Order name: Saline Lock; Complete Time: 00:40 sp4 Administered Medications: 09/30 01:03 Drug: metoCLOPramide IVP 10 mg IVP once; over 1 to 2 minutes Route: IVP; Site: right km8 antecubital; 03:50 Follow up: Response: No adverse reaction; [facility] 01:03 Drug: Promethazine IM 25 mg IM once Route: IM; Site: right deltoid; km8 03:50 Follow up: Response: No adverse reaction; Pain is decreased km8 01:03 Drug: diphenhydrAMINE IVP 50 mg IVP once Route: IVP; Site: right antecubital; km8 03:50 Follow up: Response: No adverse reaction; Pain is decreased 8 01:03 Drug: NS 0.9% IV 1000 ml IV at 1 bolus Per protocol; 1000 mL bolus Route: IV; Rate: 1 km8 bolus; Site: right antecubital; 03:50 Follow up: IV Status: Completed infusion; IV Intake: 1000ml 8 01:04 Drug: Ketorolac IVP 30 mg IVP once Route: IVP; Site: right antecubital; km8 03:50 Follow up: Response: No adverse reaction; Pain is decreased km8 Disposition Summary: 10/01/23 04:58 Discharge Ordered Notes: Location: Home sp4 Problem: new sp4 Symptoms: have improved sp4 Condition: Stable sp4 Diagnosis - Other headache syndrome sp4 Followup: sp4 - With: Private Physician - When: 7 - 10 days - Reason: Recheck today's complaints Discharge Instructions: - Discharge Summary Sheet sp4 - General Headache Without Cause sp4 Prescriptions: - ondansetron 8 mg Oral Tablet,disintegrating - take 1 tablet ORAL route every 8 hours PRN nausea; 30 tablet; Refills: 0, sp4 Product Selection Permitted Signatures: Dispatcher [employer] Sebastian Dwyer MD MD sp4 Iris Perez RN RN cm10 Sagrario Atkins RN RN km8
--- NOTE | 2023-10-01 04:59 | ER ---
Nurse's Notes [facility] Name: Davida Hodges Age: 48 yrs Sex: Female : 1975 Arrival Date: 09/30/2023 Time: 23:34 Bed 4 Private MD: Diagnosis: Other headache syndrome Presentation: 09/30 00:22 Chief complaint: Patient states: Vomiting and headache onset 2 days ago. Pt denies cm10 abdominal pain. Pt reports that she is also having dizziness. Coronavirus screen: Vaccine status: Patient reports being unvaccinated. Client denies travel out of the [place] in the last 14 days. At this time, the client does not indicate any symptoms associated with coronavirus-19. Ebola Screen: Patient denies travel to an Ebola-affected area in the 21 days before illness onset. No symptoms or risks identified at this time. Initial Sepsis Screen: Does the patient meet any 2 criteria? No. Patient's initial sepsis screen is negative. Does the patient have a suspected source of infection? No. Patient's initial sepsis screen is negative. Risk Assessment: Do you want to hurt yourself or someone else? Patient reports no desire to harm self or others. Onset of symptoms was October 01, 2023. 00:22 Method Of Arrival: Wheelchair cm10 00:22 Acuity: CARMITA 3 cm10 Historical: - Allergies: 00:22 CARBAMAZEPINE DERIVATIVES; cm10 00:22 Depakote; cm10 00:22 Tegretol; cm10 - PMHx: 00:22 ADD/ADHD; Anxiety; Bipolar disorder; Chronic pain; hemorrhoids; Schizophrenia; Seizures;cm10 - Immunization history:: Adult Immunizations up to date. - Infectious Disease History:: Denies. - Social history:: Smoking status: Patient denies any tobacco usage or history of. - Family history:: not pertinent. Screenin:50 [facility] ED Fall Risk Assessment (Adult) History of falling in the last 3 months, km8 including since admission No falls in past 3 months (0 pts) Confusion or Disorientation No (0 pts) Intoxicated or Sedated No (0 pts) Impaired Gait No (0 pts) Mobility Assist Device Used No (0 pt) Altered Elimination No (0 pt) Score/Fall Risk Level 0 - 2 = Low Risk Oriented to surroundings, Maintained a safe environment, Educated pt \T\ family on fall prevention, incl call for assistance when getting out of bed, Assessed \T\ reinforced patient's understanding of fall precautions. Abuse screen: Denies threats or abuse. Denies injuries from another. Nutritional screening: No deficits noted. Tuberculosis screening: No symptoms or risk factors identified. Assessment: 00:50 General: Appears uncomfortable, Behavior is cooperative, appropriate for age. Pain: km8 Complains of pain in head Pain currently is 10 out of 10 on a pain scale. Quality of pain is described as aching. Neuro: Level of Consciousness is awake, alert, obeys commands, Oriented to person, place, time, situation. Cardiovascular: Denies chest pain, shortness of breath, Patient's skin is warm and dry. Respiratory: Airway is patent Respiratory effort is even, unlabored, Respiratory pattern is regular, symmetrical. GI: Abdomen is non-distended, Reports nausea, vomiting. : No signs and/or symptoms were reported regarding the genitourinary system. EENT: No signs and/or symptoms were reported regarding the EENT system. Derm: Skin is intact, is healthy with good turgor, Skin is dry, Skin is pink, warm \T\ dry. normal, Skin temperature is warm. Musculoskeletal: Range of motion: intact in all extremities, Reports pain in upper back and neck. 02:00 Reassessment: Patient appears in no apparent distress at this time. Patient and/or km8 family updated on plan of care and expected duration. Pain level reassessed. Patient is alert, oriented x 3, equal unlabored respirations, skin warm/dry/pink. 03:00 Reassessment: Patient appears in no apparent distress at this time. Patient and/or km8 family updated on plan of care and expected duration. Pain level reassessed. Patient is alert, oriented x 3, equal unlabored respirations, skin warm/dry/pink. Patient states symptoms have improved. pt sleeping at this time. 04:00 Reassessment: Patient appears in no apparent distress at this time. No changes from [facility] previously documented assessment. 04:45 Reassessment: Dr. Silva at bedside discussing results, via floral designer, with pt and km8 family. 05:25 Reassessment: during discharge, pt's family requesting nausea medication; Dr. Shira marcus8 notified and wrote prescription. Vital Signs: 00:22 BP 112 / 68; Pulse 68; Resp 18; Temp 98; Pulse Ox 100% on R/A; Pain 5/10; cm10 01:30 BP 143 / 84; Pulse 88; Resp 18; Pulse Ox 100% on R/A; km8 02:00 BP 103 / 77; Pulse 76; Resp 16; Pulse Ox 100% on R/A; km8 02:30 BP 142 / 88; Pulse 65; Resp 16; Pulse Ox 100% on R/A; km8 03:30 BP 98 / 67; Pulse 66; Resp 16; Pulse Ox 98% on R/A; km8 04:00 BP 97 / 66; Pulse 16; Resp 16; Pulse Ox 98% on R/A; km8 04:30 BP 113 / 70; Pulse 56; Resp 16; Pulse Ox 100% on R/A; km8 00:22 Pain Scale: Adult cm10 Ingrid Coma Score: 00:50 Eye Response: spontaneous(4). Motor Response: obeys commands(6). Verbal Response: km8 oriented(5). Total: 15. 04 01:00 Eye Response: spontaneous(4). Motor Response: obeys commands(6). Verbal Response: sp4 oriented(5). Total: 15. ED Course: 09/29 23:42 Patient arrived in ED. ra3 23:44 Sebastian Silva MD is Attending Physician. sp4 09/30 00:23 Triage completed. cm10 00:23 Arm band placed on Patient placed in an exam room, on a stretcher. cm10 00:24 Sagrario Atkins RN is Primary Nurse. km8 00:50 Patient has correct armband on for positive identification. Bed in low position. Call km8 light in reach. Side rails up X2. Adult w/ patient. Pulse ox on. NIBP on. Lights dimmed. Warm blanket given. 00:50 Inserted saline lock: 22 gauge in right antecubital area, using aseptic technique. km8 01:52 CT Head Brain wo Cont In Process Unspecified. EDMS 03:50 No provider procedures requiring assistance completed. km8 05:20 Provided Education on: d/c teaching. km8 05:25 IV discontinued, intact, bleeding controlled, No redness/swelling at site. Pressure km8 dressing applied. Administered Medications: 01:03 Drug: metoCLOPramide IVP 10 mg IVP once; over 1 to 2 minutes Route: IVP; Site: right km8 antecubital; 03:50 Follow up: Response: No adverse reaction; Pain is decreased km8 01:03 Drug: Promethazine IM 25 mg IM once Route: IM; Site: right deltoid; km8 03:50 Follow up: Response: No adverse reaction; Pain is decreased km8 01:03 Drug: diphenhydrAMINE IVP 50 mg IVP once Route: IVP; Site: right antecubital; km8 03:50 Follow up: Response: No adverse reaction; Pain is decreased km8 01:03 Drug: NS 0.9% IV 1000 ml IV at 1 bolus Per protocol; 1000 mL bolus Route: IV; Rate: 1 km8 bolus; Site: right antecubital; 03:50 Follow up: IV Status: Completed infusion; IV Intake: 1000ml km8 01:04 Drug: Ketorolac IVP 30 mg IVP once Route: IVP; Site: right antecubital; km8 03:50 Follow up: Response: No adverse reaction; Pain is decreased km8 Medication: 00:50 VIS not applicable for this client. km8 Intake: 03:50 IV: 1000ml; Total: 1000ml. km8 Outcome: 04:58 Discharge ordered by . sp4 05:30 Discharged to home via wheelchair, with family, km8 05:30 Condition: good 05:30 Discharge instructions given to patient, family, Instructed on discharge instructions, km8 follow up and referral plans. medication usage, Demonstrated understanding of instructions, follow-up care, medications, Prescriptions given X 1, 05:31 Patient left the ED. km8 Signatures: Dispatcher [employer] EDMS Sebastian Silva MD MD sp4 Iris Perez RN RN cm10 Sagrario Atkins RN RN km8 Yuli Simon 3
[2023-10-01 09:42] VITALS: BP 113/70; TEMP 98; O2SAT 100
--- NOTE | 2023-10-01 13:37 | RAD REPORT ---
EXAM DESCRIPTION: CT - Head Brain Wo Cont - 10/01/2023 7:07 am CLINICAL HISTORY: The patient is 48 years old and is Female; CONFUSED Bed Name: 4 TECHNIQUE: Axial computed tomography images of the head/brain without intravenous contrast. Sagitt al and coronal reformatted images were created and reviewed. This CT exam was performed using one o r more of the following dose reduction techniques: automated exposure control, adjustment of the mA and/or kV according to patient size, and/or use of iterative reconstruction technique. COMPARISON: 07/18/2023 CT head without contrast FINDINGS: BRAIN: No extra-axial fluid collection. No intracranial hemorrhage. No transtentorial he rniation. No focal tobin-white matter differentiation abnormality. Stable appearance of 0.8 cm rounded calcification along the just right of midline inferior posterior falx from prior exam. MIDLINE SHIFT: None. VENTRICLES: Unremarkable No ventriculomegaly. BONES/JOINTS: No fracture of the calvarium or visualized facial bones. SOFT TISSUES: Unremarkable SINUSES: No masses, bony erosion or evidence of acute sinusitis. MASTOID AIR CELLS: Unremarkable as visualized. No mastoid effusion. IMPRESSION: No acute intracranial abnormality. Electronically signed by: Constantine Schultz MD 10/01/2023 02:21 AM CDT Due to temporary technical issues with the PACS/Fluency reporting system, reports are being signed by the in house radiologists without review as a courtesy to insure prompt reporting. The interpreting radiologist is fully responsible for the content of the report.
== END 2023-10-01 05:31 | disposition home or self-care (01) ==
LOC: ER 23:34
DX: G44.89 Other headache syndrome (principal); R11.10 Vomiting, unspecified; R42 Dizziness and giddiness
CPT/HCPCS: 70450; J1200; J2550; J2765; J7030

== ENCOUNTER 2023-10-28 23:13 | Emergency (ER) | payer SELFPAY ==
--- OUTSIDE RECORDS SUMMARY | 2023-10-28 23:19 | XMS REPORT | Continuity of Care Document ---
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 2021-05-05 13:22:00 2021-05-05 14:48:00 Emergency Deon Nunez [facility] 1.2.840.114 350.1.13.10 4.2.7.2.686 [id number] [facility] 2021-05-05 00:00:00 2021-05-05 00:00:00 Orders Only Doctor Unassigned, [place] [facility] 1.2.840.114 350.1.13.10 4.2.7.2.686 [id number] [facility] 2019-12-15 17:11:56 2019-12-15 18:04:00 Emergency Kp Gilliland [facility] 1.2.840.114 350.1.13.10 4.2.7.2.686 [id number] [id number] 2019-12-15 17:11:56 2019-12-15 18:04:00 Emergency Kp Gilliland [facility] 1.2.840.114 350.1.13.10 4.2.7.2.686 [id number] [id number] [facility] 2019-12-15 17:11:56 2019-12-15 17:11:56 Emergency X Kp GILLILAND [facility] ERT [id number] [facility] 2019-10-25 18:31:31 2019-10-25 19:21:00 Emergency Kristin Miller [facility] 1.2.840.114 350.1.13.10 4.2.7.2.686 [id number] [id number] 2019-10-25 18:31:31 2019-10-25 19:21:00 Emergency Kristin Miller [facility] 1.2.840.114 350.1.13.10 4.2.7.2.686 [id number] [id number] [facility] 2019-10-25 18:31:31 2019-10-25 18:31:31 Emergency X RKISTIN MILLER [facility] ERT [id number] [facility] 2019-08-13 13:30:00 2019-08-13 14:36:00 Emergency Floridalma Evans [facility] 1.2.840.114 350.1.13.10 4.2.7.2.686 [id number] 2019-08-13 13:30:00 2019-08-13 14:36:00 Emergency Floridalma Evans [facility] 1.2.840.114 350.1.13.10 4.2.7.2.686 [id number] [facility] 2019-08-13 13:30:00 2019-08-13 14:36:00 Emergency X FLORIDALMA EVANS [facility] ERT [id number] [facility] 2019-07-22 13:42:11 2019-07-22 19:02:00 Emergency Unknown, Attending Lisa Morfin [facility] 1.2.840.114 350.1.13.10 4.2.7.2.686 [id number] 2019-07-22 13:42:11 2019-07-22 19:02:00 Emergency X LISA MORFIN [facility] ERT [id number] [facility] 2019-07-22 13:42:11 2019-07-22 19:02:00 Emergency Unknown, Attending Lisa Morfin [facility] 1.2.840.114 350.1.13.10 4.2.7.2.686 [id number] [facility] 2019-07-13 20:17:19 2019-07-13 21:48:00 Emergency X LEXIE HENRY [facility] ERT [id number] [facility] 2019-07-13 20:17:19 2019-07-13 21:48:00 Emergency Henry Owen [facility] 1.2.840.114 350.1.13.10 4.2.7.2.686 [id number] [facility] 2019-07-10 14:26:03 2019-07-10 16:33:00 Emergency X DEBBIE PAYTON [facility] ERT [id number] [facility] 2019-07-10 14:26:03 2019-07-10 16:33:00 Emergency Debbie Payton [facility] 1.2.840.114 350.1.13.10 4.2.7.2.686 [id number] [facility] 2019-07-04 19:09:02 2019-07-04 22:51:00 Emergency X LISA MORFIN [facility] ERT [id number] [facility] 2019-06-30 10:33:08 2019-06-30 13:10:00 Emergency X DEON NUNEZ [facility] ERT [id number] [facility] 2019-05-25 11:58:19 2019-05-25 15:37:00 Emergency X DEON NUNEZ [facility] ERT [id number] [facility] 2019-04-09 22:29:37 2019-04-09 23:28:00 Emergency X FLORIDALMA EVANS [facility] ERT [id number] [facility] 2019-01-21 18:38:01 2019-01-21 19:59:00 Emergency Le Ramirez [facility] 1.2.840.114 350.1.13.10 4.2.7.2.686 [id number] 2019-01-21 18:38:01 2019-01-21 19:59:00 Emergency Le Ramirez [facility] 1.2.840.114 350.1.13.10 4.2.7.2.686 [id number] [id number] [facility] Results Test Description Test Time Test Comments Results Result Co mments Source TSH, THIRD [id number] 23:53:27* Test Item Value Reference Range Interpretation Comme nts TSH, THIRD GENERATION (test code = 2821) 11.100 UIU/ML 0.400-4.100 H COMPREHENSIVE METABOLIC [id number] 23:46:03* Test Item Value Reference Range Interpretation Comme nts GLUCOSE (test code = 2216) 97 MG/DL 70-99 BUN (test code = 2207) 7 MG/DL 6-20 CREATININE (test code = 2213) 0.61 MG/DL 0.60-1.30 eGFR (2020 CKD-EPI) (test code = ) 110 ML/MIN/1.73 >60 CALC BUN/CREAT (test code [...] 13 U/L 5-40 CBC W/AUTO DIFF WITH [id number] 08:48:44* Test Item Value Reference Range Interpretation [...] 0.00-0.10 ABS NUCLEATED RBCS (test code = 80633) 0.00 K/UL 0.00-0.11 UNLESS OTHER MONTOYA INDICATED, ALL TESTING PERFORMED AT [facility] [address] [place] [address] RADIOPHONE OPERATOR: JATIN FELIPE M.D. CLIA NUMBER [id number] [place]. [id number] 01:13:06* Test Item Value Reference Range Interpretation Comme nts TRANSFERRIN (test code = 4936) 315 MG/DL 200-360 UNLESS OTHERWISE INDICATED, ALL TESTING PERFORMED AT [facility] [address] [place] [address] RADIOPHONE OPERATOR: Derek FINNIA NUMBER [id number] [place]. [id number] LIPID [id number] 01:12:48* Test Item Value Reference Range Interpretation Comme nts CHOLESTEROL (test code = 2210) 191 MG/DL <200 TRIGLYCERIDES (test code = 2232) 89 MG/DL <150 HDL CHOLESTEROL (test code = 2220) 74 MG/DL >39 CALC LDL CHOL (test code = 223) 99 MG/DL <100 NOTE: CALCULATED LDL IS BASED ON CECE-OBRIEN METHOD WHICHINCLUDES ADJUSTABLE TRIGLYCERIDE:VLDL CHOLESTEROL RATIO.THIS FACTOR VARIES BY MEASURED TRIGLYCERIDE AND NON-HDLCHOLESTEROL CONCENTRATIONS WITH INCREASED CALCULATED LDL SEENIN HIGHER TRIGLYCERIDE OR LOWER NON-HDL SPECIMENS. FOR MOREINFORMATION, SEE CLIENT ANNOUNCEMENT AT [email or web address] RISK RATIO LDL/HDL (test code = 2238) 1.34 RATIO <3.22 COMPREHENSIVE METABOLIC [id number] 01:12:48* Test Item Value Reference Range Interpretation Comme nts GLUCOSE (test code = 221) 92 MG/DL 70-99 BUN (test code = 220) 15 MG/DL 6-20 CREATININE (test code = 2214) 0.65 MG/DL 0.60-1.30 eGFR (2020 CKD-EPI) (test code = 86238) 108 ML/MIN/1.73 >60 CALC BUN/CREAT (test code [...] 7.8 G/DL 6.1-8.3 ALBUMIN (test code = 2201) 3.9 G/DL 3.5-5.2 CALC GLOBULIN (test code = 2240) 3.9 G/DL 1.9-3.7 H CALC A/G RATIO (test code = 2234) 1.0 RATIO 1.0-2.6 BILIRUBIN, TOTAL (test code = 2207) <0.2 MG/DL See_Comment [Automated me ssage] The system which generated this result transmitted reference range: <=1.2. The reference range was not used to interpret this result as normal/abnormal. ALKALINE PHOSPHATASE (test code = 2204) 73 U/L 40-125 AST (test code = 221) 15 U/L 9-40 ALT (test code = 221) 7 U/L 5-40 IRON BINDING CAPACITY AND IRON AND % [id number] 01:12:48* Test Item Value Reference Range Interpretation Comme nts IRON, SERUM (test code = 2222) 51 UG/DL 37-145 UNSATURATED IBC (test code = 63378) 356 UG/DL 112-347 H CALC TOTAL IBC (test code = 2077) 407 UG/DL 250-450 CALC % IRON SAT (test code = 2079) 13 % 20-50 L [id number] 00:59:24* Test Item Value Reference Range Interpretation Comme nts FERRITIN (test code = 2075) 20 NG/ML 13-200 HEMOGLOBIN [id number] 03:08:40* Test Item Value Reference Range Interpretation Comme nts HEMOGLOBIN A1c (test code = 32692) 5.5 % 4.2-5.6 CBC W/AUTO DIFF WITH [id number] 02:29:36* Test Item Value Reference Range Interpretation [...] 0.00-0.10 ABS NUCLEATED RBCS (test code = 90360) 0.00 K/UL 0.00-0.11 DRUGS OF [id number] 05:03:00* Test Item Value Reference Range Interpretation [...] 200 ng/mL Opiates 300 ng/mL URINALYSIS WITH [id number] 04:56:00* Test Item Value Reference Range Interpretation [...] (test code = USPERM) /HPF NONE URINE [id number] 04:53:00* Test Item Value Reference Range Interpretation [...] the FDA and the [employer] (CAP) are more stringent than those required for this test. Therefore, the result should be interpreted with caution and close attention to other clinical and epidemiological data [id number] 16:00:00* Test Item Value Reference Range Interpretation Comme nts SALICYLATE (test code = 94B) <3.0 mg/dL 15.0-30.0 L LIVER [id number] 15:49:00* Test Item Value Reference Range Interpretation [...] code = 30A) 16 IU/L See_Comment [Automated B5M.COMa ge] The system which generated this result transmitted reference range: <=33. The reference range was not used to interpret this result as normal/abnormal. ALT (test code = 31A) <7 IU/L 10-49 L [id number] 15:48:00* Test Item Value Reference Range Interpretation [...] to interpret this result as normal/abnormal. 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 Old healed fractures of the distal tibia and fibular noted.Soft tissues: Unremarkable.IMPRESSION: No acute findings.Electronically signed by: Nikko Santiago MD 11/04/2022 3:10 PM CDT 4837XH9YMOSTTL BEDSIDE [id number] 11:51:00* Test Item Value Reference Range Interpretation Comme nts GLUCOSE BEDSIDE TESTING (karen t code = GLUBED) 79 MG/DL 70-119 N GLUCOSE BEDSIDE [id number] 06:23:00* Test Item Value Reference Range Interpretation Comme nts GLUCOSE BEDSIDE TESTING (karen t code = GLUBED) 80 MG/DL 70-119 N BASIC METABOLIC [id number] 05:12:00* Test Item Value Reference Range Interpretation [...] 2.0 <2.0 indicates None DetectedPerformed At: [facility] [address] [id number] Michael Reeves MD Ph:[phone] GLUCOSE BEDSIDE [id number] 19:51:00* Test Item Value Reference Range Interpretation Comme nts GLUCOSE BEDSIDE TESTING (karen t code = GLUBED) 129 MG/DL 70-119 H OSMOLALITY [id number] 17:56:00* Test Item Value Reference Range Interpretation Comme nts OSMOLALITY SERUM (test code = OSMO) 269 mOsm/kg 275-300 L THYROID STIMULATING [id number] 17:56:00* Test Item Value Reference Range Interpretation Comme nts THYROID STIMULATING HORMONE (test code = TSH) 4.190 mc IU/ML 0.340-4.820 N GLUCOSE BEDSIDE [id number] 15:49:00* Test Item Value Reference Range Interpretation [...] code = VALP) 37.5 mcG/ML 50.0-100.0 L [id number] 14:26:00* Test Item Value Reference Range Interpretation Comme nts AMMONIA (test code = AMM) 29.0 mcMOL/L 11.0-32.0 N GLUCOSE BEDSIDE [id number] 11:51:00* Test Item Value Reference Range Interpretation Comme nts GLUCOSE BEDSIDE TESTING (karen t code = GLUBED) 88 MG/DL 70-119 N GLYCOSYLATED HEMOGLOBIN (HA1C)2022-09-18 06:53:00* Test Item Value Reference Range Interpretation Comme nts GLYCOSYLATED HEMOGLOBIN (HA1 C) (test code = GLYHGB) 5.2 % IS-A1C 4.5-5.6 N ESTIMATED AVERAGE [id number] 06:53:00* Test Item Value Reference Range Interpretation [...] to interpret this result as normal/abnormal. UR [id number] 21:28:00* Test Item Value Reference Range Interpretation Comme nts UR SODIUM RANDOM (test code = JESUSITA) 93 mmol/L 40-200 N UR POTASSIUM RANDOM (test code = KU) 54.8 mmol/L 25-125 N NO ESTABLISHED NORMAL RANGES FOR RANDOM SPECIMENS. UR CHLORIDE RANDOM (test code = CLU) 164 mmol/L 110-150 H UR OSMOLALITY [id number] 21:28:00* Test Item Value Reference Range Interpretation Comme nts UR OSMOLALITY RANDOM (test c ode = OSMOU) 475 mOsm/kg 100-1400 N CBC W/O [id number] 20:05:00* Test Item Value Reference Range Interpretation [...] = MPV) 9.5 fL 6.8-11.2 N LACTIC [id number] 19:35:00* Test Item Value Reference Range Interpretation Comme nts LACTIC ACID (test code = LACT) 1.0 mmol/L 0.4-2.0 N HCG SERUM [id number] 19:31:00* Test Item Value Reference Range Interpretation Comme nts HCG SERUM QUAL (test code = HCGQL) Negative SCREEN NEG - CT HEAD/BRAIN W/O [id number] 18:59:00 [facility] BHUMIKA JONES : 1975 Sex: F Patient Name: BHUMIKA JONES Unit No: [id number] EXAMS: CPT CODE: [id number] CT HEAD/BRAIN W/O CONT 89994 Location: H3 CT head, conducted on 09/17/22 [...] VERO Marie(Abner)(CT) CTDI: DLP: Trnscrpt: 09/17/2022 (1858) [email or web address] DENIZ Lugo NAME: EULALIA JONES [address] PHYS: Valentina [place] [address] : 1975 AGE: 47 SEX: F LOC: GingerJordenJASON [employer] PHONE #: [phone] EXAM DATE: 09/17/2022STATUS: ADM IN FAX #: [phone] RAD #: D/C DT PAGE 1 Signed Report Patient Name: BHUMIKA JONES Unit No: [id number] EXAMS: CPT CODE: [id number] CT HEAD/BRAIN W/O CONT 24223 (Continued) Orig Print D/T: S: 09/17/2022 (190) DENIZ Lugo NAME: SILAS JONES[address] PHYS: Valentina Mattson [place] [id number] : 1975 AGE: 47 SEX: F : B.ERMED 19 PHONE #: [phone] EXAM DATE: 09/17/2022 STATUS: ADM IN FAX #: [phone] RAD #: D/C DT PAGE 2 Signed ReportURINALYSIS [id number] 16:28:00* Test Item Value Reference Range Interpretation [...] >0 /UL NONE-SQepi DRUGS OF ABUSE SCREEN [id number] 16:28:00* Test Item Value Reference Range Interpretation [...] interpret this result as normal/abnormal. TROP-I HIGH [id number] 16:26:00* Test Item Value Reference Range Interpretation [...] and URLs may vary bymethod. BASIC METABOLIC [id number] 16:25:00* Test Item Value Reference Range Interpretation [...] interpret this result as normal/abnormal. HEPATIC FUNCTION [id number] 16:25:00* Test Item Value Reference Range Interpretation [...] ode = CK) 92 Unit/L 26-192 N [id number] 16:25:00* Test Item Value Reference Range Interpretation Comme nts LIPASE (test code = LIP) 57 Unit/L 114-286 L - CT HEAD/BRAIN W/O [id number] 00:32:00 [facility]: BHUMIKA JONES : 1975 Sex: F Patient Name: BHUMIKA JONES Unit No: [id number] EXAMS: CPT CODE: [id number] CT HEAD/BRAIN W/O CONT 64882 EXAM: - CT HEAD/BRAIN W/O CONT LOCATION: [...] August CTDI: DLP: Trnscrpt: 09/17/2022 (31) [email or web address] [facility] NAME: ROBERT[address] PHYS: PATCA.02 - [place]im [place] [address] : 1975 AGE: 47 SEX: F LOC: GregorioERS PHONE #: [phone] EXAM DATE: 09/16/2022 STATUS: REG ER FAX #: [phone] RAD #: D/C DT PAGE 1 Signed Report Patient Name: BHUMIKA JONES Unit No: [id number] EXAMS: CPT CODE: [id number] CT HEAD/BRAIN W/O CONT 26741 (Continued) Orig Print D/T: S: 09/17/2022 (34) DENIZ Lugo NAME: ROBERT[address] PHYS: PATCA.02 - [place]im [place] [address] :1975 AGE: 47 SEX: F LOC: B.ERS PHONE #: [phone] EXAM DATE: 09/16/2022 STATUS: REG ER FAX #: [phone] RAD #: D/C DT PAGE 2 Signed ReportTROP-I HIGH [id number] 00:13:00* Test Item Value Reference Range Interpretation [...] and URLs may vary bymethod. COMPREHENSIVE METABOLIC [id number] 00:11:00* Test Item Value Reference Range Interpretation [...] interpret this result as normal/abnormal. CBC W/AUTO [id number] 23:59:00* Test Item Value Reference Range Interpretation [...] K/mm3 0.0-0.05 N - XR CHEST 1 [id number] 23:34:00 [facility] CONROEName: BHUMIKA JONES : 1975 Sex: F Labadie: E St: PRE -- Patient Name: BHUMIKA JONES Unit No: [id number] EXAMS: CPT CODE: [id number] XR CHEST 1 V 85384 EXAMINATION: - XR CHEST 1 V CLINICAL INDICATION: Female, 47 years year old with cough COMPARISON: [facility] 2022 FINDINGS: Single view(s) of the chest [...] By: [email or web address] Orig Print D/T: S: 09/16/2022 (401) [facility] TrippME: [email or web address] PHYS: [email or web address] - Asim Jack MD, [id number] : 1975 AGE: 47 SEX: F LOC: Ginger.ERS PHONE #: [phone] EXAM DATE: 09/16/2022 STATUS: PRE ER FAX #: [phone] RAD NO: DC Dt: PAGE 1 Signed ReportCARBAMAZEPINE (TEGRETOL) 2022-09-15 06:12:00* Test Item Value Reference Range Interpretation Comme nts CARBAMAZEPINE (TEGRETOL) (test code = CARB) 1.5 ug/mL 4.0-12.0 L In conjunction w ith other antiepileptic drugs Therapeutic 4.0 - 8.0 Toxicity 9.0 - 12.0 Carbamazepine alone Therapeutic 8.0 - 12.0 Detection Limit = 2.0 <2.0 indicates None DetectedPerformed At: [facility] [address] [id number] Michael Reeves MD Ph:[phone] VALPROIC ACID (DEPAKENE)2022-09-15 06:12:00* Test Item Value Reference Range Interpretation Comme nts VALPROIC ACID (DEPAKENE) (te st code = VALP) 80.6 mcG/ML 50.0-100.0 N COMPREHENSIVE METABOLIC [id number] 06:00:00* Test Item Value Reference Range Interpretation [...] interpret this result as normal/abnormal. CBC W/AUTO [id number] 05:37:00* Test Item Value Reference Range Interpretation [...] NRBC#) 0.00 K/mm3 0.0-0.05 N GLUCOSE BEDSIDE [id number] 20:03:00* Test Item Value Reference Range Interpretation Comme nts GLUCOSE BEDSIDE TESTING (karen t code = GLUBED) 117 MG/DL 70-119 N DRUGS OF ABUSE SCREEN [id number] 11:42:00* Test Item Value Reference Range Interpretation [...] result as normal/abnormal. - CT HEAD/BRAIN W/O [id number] 11:37:00 [facility] CONROEName: SILAS JONESPCION : 1975 Sex: FPatient Name: SILAS JONESPCION Unit No: [id number] EXAMS: CPT CODE: [id number] CT HEAD/BRAIN W/OCONT [address] EXAMINATION: - CT HEAD/BRAIN W/O CONT COMPARISON: [...] MD; Jim Jaimes MD Dictated Date/Time: 09/14/2022 (1655) Technologist: ASUNCION EARLDI: DLP: Trnscrpt: 09/14/2022 (2538) [email or web address] [facility]ITALWiliam Lugo NAME: [facility] PHYS: Vladimir Menchaca MD [address] [place] [address] BLVD : 1975 AGE: 47 SEX: F [place], [place] [address] LOC: NEHA Cintron PHONE #: [phone] EXAM DATE: 09/14/2022 STATUS: ADM IN FAX #: [phone] RAD #: D/C DT PAGE 1 Signed Report Patient Name: BHUMIKA JONES Unit No: [id number] EXAMS: CPT CODE: [id number] CT HEAD/BRAIN W/O CONT 33933 (Continued) Orig Print D/T: S: 09/14/2022 (1140) [facility] NAME: SILAS [facility] PHYS: Vladimir Menchaca MD [address] [place] [address] BLVD : 1975 AGE: 47 SEX: F RAFI LUGO [id number] [facility] [id number] LOC: NEHA Cintron PHONE #: [phone] EXAM DATE: 09/14/2022 STATUS: ADM IN FAX #: [phone] RAD #: D/C DT PAGE 2 Signed ReportPT AND TSR5032-57-20 06:51:00* Test Item Value Reference Range Interpretation [...] AVOIDED DUE TO POSSIBLE HEPARINCONTAMINATION HCG SERUM QZHT3520-11-49 06:51:00* Test Item Value Reference Range Interpretation [...] CK) 268 Unit/L 26-192 H CBC W/AUTO JAQW7831-33-71 03:43:00* Test Item Value Reference Range Interpretation [...] = NRBC#) 0.00 K/mm3 0.0-0.05 N URINALYSIS NPALBABW7005-98-52 03:41:00* Test Item Value Reference Range Interpretation [...] RARE /LPF NONE - XR CHEST 2 U2522-24-91 02:06:00 [facility] CONROEName: BHUMIKA JONES : 1975 Sex: F FAX: DevenSuleman MIRANDA [phone] [place]: St: REG Patient Name: BHUMIKA JONES Unit No: [id number] EXAMS: CPT CODE: [id number] XR CHEST 2 V 43846 EXAM: - XR CHEST 2 V HISTORY: [...] 09/14/2022 (0209) DENIZ Lugo NAME: BHUMIKA JONES [address] [place] [address] PHYS: TYLERMYRA Santiago TylerbrandanSuleman MIRANDA [place], [place] [address] : 1975 AGE: 47 SEX: F LOC: B.ERS PHONE #: [phone] EXAM DATE: 09/14/2022 STATUS: REG ER FAX #: [phone] RAD NO: DC Dt: PAGE 1 Signed ReportCOMPREHENSIVE METABOLIC UEEVX0922-33-06 12:49:00* Test Item Value Reference Range Interpretation [...] used to interpret this result as normal/abnormal. IXBVTVAQX9118-72-20 12:49:00* Test Item Value Reference Range Interpretation Comme nts MAGNESIUM (test code = MAG) 1.7 MG/DL 1.6-2.6 N CBC W/AUTO EDBV4924-51-96 12:36:00* Test Item Value Reference Range Interpretation [...] RARE /LPF NONE DRUGS OF ABUSE SCREEN EP4882-84-93 00:33:00* Test Item Value Reference Range Interpretation [...] 300 ng/mL UA RFLX MICR CULT IF MPMSSNUIK2456-93-50 00:30:00* Test Item Value Reference Range Interpretation [...] culture: Suprapubic PainSpecimen Description: CLEAN CATCHBASIC METABOLIC WTVBC1810-19-17 00:18:00* Test Item Value Reference Range Interpretation [...] 8.9 mg/dl 8.0-10.5 N HEPATIC FUNCTION PANEL V1070-01-43 00:18:00* Test Item Value Reference Range Interpretation [...] ALKP) 113 Units/L 50.0-136.0 N HCG SERUM QWIC7862-86-49 00:18:00* Test Item Value Reference Range Interpretation Comme [facility] HCG SERUM QUAL (test code = HCGQL) NEGATIVE NEGATIVE EEFUHXX1594-04-94 00:18:00* Test Item Value Reference Range Interpretation Comme [facility] ALCOHOL (test code = ALC) 0.00 gm/dL 0.00-0.00 N ETHYL ALCOHOL VA LUES - INTERPRETATION: 0.050 GM/DL - NOT INTOXICATED 0.100 GM/DL - INTOXICATED 0.350-0.450 GM/DL - SEVERELY INTOXICATED 0.550 GM/DL- FATAL INTOXICATION Coronavirus 2019 nCoV Buidqsi0132-77-66 00:09:00* Test Item Value Reference Range Interpretation Comme [facility] Coronavirus 2019 nCoV Bedside (test code = IIXFT12IDUQT) Negative NEGATIVE Negative results should be treated as presumptive and ifinconsistent with clinical signs and symptoms, or necessaryfor patient management, should be tested with an alternativemolecular assay. Negative results do not preclude ZFHD-KdF-0gybrbsgxn and should not be used as the sole basis forpatient management decisions. Negative results should beconsidered in the context of a patient's recent exposures,history, presence of clinical signs and symptoms consistentwith COVID-19. CBC W/AUTO YEXW9138-51-28 23:58:00* Test Item Value Reference Range Interpretation Comme [facility] WHITE BLOOD CELL (test code = [...] X10 3uL 0.00-0.01 N COMP. METABOLIC PANEL (61447)2022-09-07 02:12:41* Test Item Value Reference Range Interpretation Comme nts NA (test code = 0821382315) 133 mmol/L 135-145 L K (test code = 6040180054) 4.4 mmol/L 3.5-5.0 CL (test code = 7257304030) 102 mmol/L 98-108 CO2 TOTAL (test code = 7560313804) 25 mmol/L 23-31 AGAP (test code = 3639444647) 6 2-16 BUN (test code = 7569881117) 22 mg/dL 7-23 GLUCOSE (test code = 4894730725) 97 mg/dL 70-110 CREATININE (test code = 3437015969) 0.40 mg/dL 0.50-1.04 L TOTAL BILI (test code = 1010834715) 0.3 mg/dL 0.1-1.1 CALCIUM (test code = 0185374069) 8.9 mg/dL 8.6-10.6 T PROTEIN (test code = 2698850632) 7.7 g/dL 6.3-8.2 ALBUMIN (test code = 9514442338) 4.0 g/dL 3.5-5.0 ALK PHOS (test code = 6556474685) 104 U/L 34-122 ALTv (test code = 1742-6) 15 U/L 5-35 AST(SGOT) (test code = 7703730448) 22 U/L 13-40 eGFR (test code = 1604857189) 170.4 mL/min/1.73m2 HANNAH (test code = HANNAH) [...] imaging tests). Lab Interpretation (test code = 40868-2) Abnormal [facility] WITH JSKS7070-35-81 02:01:20* Test Item Value Reference Range Interpretation Comme nts WBC (test code = 6690-2) 6.17 See_Comment [Automated [employer]] The system which generated this result transmitted reference range: 4.30 - 11.10 10*3/?L. The reference range was not used to interpret this result as normal/abnormal. RBC (test code = 789-8) 3.73 See_Comment L [Automated [employer]] The system which generated this result transmitted [...] 32.9 g/dL 31.6-35.1 RDW-SD (test code = 28228-9) 48.1 fL 39.0-49.9 RDW-CV (test code = 788-0) 14.7 % 12.0-15.5 PLT (test code = 777-3) 272 See_Comment [Automated [employer]] The system which generated this result transmitted reference range: 166 - 358 10*3/?L. The reference range was not used to interpret this result as normal/abnormal. MPV (test code = 26798-3) 9.6 fL 9.5-12.9 NRBC/100 WBC (test code = 3801635059) 0.0 See_Comment [Automated me ssage] The system which generated this result transmitted reference range: 0.0 - 10.0 /100 WBCs. The reference range was not used to interpret this result as normal/abnormal. NRBC x10^3 (test code = 0289371457) See_Comment [Automated messa ge] The system which generated this result transmitted reference range: 10*3/?L. The reference range was not used to interpret this result as normal/abnormal. GRAN MAT (NEUT) % (test code = 770-8) 42.2 % IMM GRAN % (test code = 6963288659) 0.20 % LYMPH % (test code = 736-9) 38.2 % MONO % (test code = 5905-5) 12.6 % EOS % (test code = 713-8) 5.8 % BASO % (test code = 706-2) 1.0 % GRAN MAT x10^3(ANC) (test code = 6535310818) 2.60 10*3/uL 1.88-7.09 IMM GRAN x10^3 (test code = 5033763292) 0.00-0.06 LYMPH x10^3 (test code = 731-0) 2.36 10*3/uL 1.32-3.29 MONO x10^3 (test code = 742-7) 0.78 10*3/uL 0.33-0.92 EOS x10^3 (test code = 711-2) 0.36 10*3/uL 0.03-0.39 BASO x10^3 (test code = 704-7) 0.06 10*3/uL 0.01-0.07 Lab Interpretation (test code = 27555-4) Abnormal [facility] WO SYGMBNTQ1015-92-96 22:34:12 Impression: 1. ?No acute intracranial process. [...] mastoidair cells, paranasal sinuses are within normallimits. Ut, Radiant Results Inft User - 07/22/2019 4:35 [...] physicalexamination.[facility] CERVICAL SPINE 2 PQ0737-43-83 22:29:40No acute osseous abnormality. Preliminary Report Dictated by Resident: Chi Cervantes MD., have reviewed this study and agree with theabove report.EXAM: XR CERVICAL SPINE 2 VW HISTORY: neck pain COMPARISON: 07/13/2019 FINDINGS: The vertebral bodies are normal in height and in normal alignment. Theintervertebral disc spaces are unremarkable. The prevertebral soft tissuesare within normal limits. [facility], Radiant Results Inft User - 07/22/2019 4:30 PM CSTEXAM: XR CERVICAL SPINE 2VWHISTORY: neck pain COMPARISON: 07/13/2019FINDINGS:The vertebral bodies are normal in height and innormal alignment. Theintervertebral disc spaces are unremarkable. The prevertebral soft tissuesare within normal limits.IMPRESSIONNo acute osseous abnormality.Preliminary Report Dictated by Resident:Chi Richter MD., have reviewed this study and agree with theabove report.[facility] WITH AVUGYCTVNPNL3985-89-34 21:46:00* Test Item Value Reference Range Interpretation [...] 32.2 g/dL 31.6-35.1 RDW-SD (test code = 76951-0) 45.1 fL 39-49.9 RDW-CV (test code = 788-0) 14.6 % 12-15.5 PLT (test code = 777-3) See_Comment L [Automated messa ge] The system which generated this result transmitted reference range: 166 - 358 10*3/?L. The reference range was not used to interpret this result as normal/abnormal. MPV (test code = 15119-5) 9.0 fL 9.5-12.9 L NRBC/100 WBC (test code = 6040052154) See_Comment [Automated me ssage] The system which generated this result transmitted reference range: 0.0 - 10.0 /100 WBCs. The reference range was not used to interpret this result as normal/abnormal. NRBC x10^3 (test code = 8280541391) <0.01 See_Comment [Automated messa ge] The system which generated this result transmitted reference range: 10*3/?L. The reference range was not used to interpret this result as normal/abnormal. GRAN MAT (NEUT) % (test code = 770-8) 51.3 % IMM GRAN % (test code = 2605999008) 0.40 % LYMPH % (test code = 736-9) 24.4 % MONO % (test code = 5905-5) 23.1 % EOS % (test code = 713-8) 0.4 % BASO % (test code = 706-2) 0.4 % GRAN MAT x10^3(ANC) (test code = 0393420495) 2.48 10*3/uL 1.88-7.09 IMM GRAN x10^3 (test code = 1785937198) <0.03 0-0.06 LYMPH x10^3 (test code = 731-0) 1.18 10*3/uL 1.32-3.29 L MONO x10^3 (test code = 742-7) 1.12 10*3/uL 0.33-0.92 H EOS x10^3 (test code = 711-2) <0.03 0.03-0.39 L BASO x10^3 (test code = 704-7) <0.03 0.01-0.07 Lab Interpretation (test code = 11726-7) Abnormal [facility] CERV[facility] SPINE 2 KT7605-05-82 03:28:03No acute osseous abnormality. Preliminary Report Dictated [...] acute osseous abnormality.Preliminary Report Dictated by Resident: Carl Asiya, Brandon López-Leder, MD., have reviewed this study and agree withthe above report. [facility]wayValproic Acid Qbuhl6932-65-10 08:03:22* Test Item Value Reference Range Interpretation Comme nts Valproic Acid Level (test co de = Valproic Acid Level) 57.6 ug/mL(g) 50.0-100.0 Hemoglobin Y4t6254-47-98 09:36:00* Test Item Value Reference Range Interpretation Comme nts Hemoglobin A1c (test code = Hemoglobin A1c) 5.0 % 4.8-5.9 Non Diabetic 4.8-5.9%Diabetic <7.0% CT Shoulder w/o Contrast Cydb1414-28-61 16:49:13Patient: BHUMIKA JONES Date/Time01/09/2019 16:14 CDTReason for [...] Adam FSigned (Electronic Signature): 01/09/2019 4:49 pmRPR Igyqkzdiujv9027-28-16 21:33:20* Test Item Value Reference Range Interpretation [...] 04-23-2020 N XR Shoulder Complete 2+ Views Ufsk8250-17-66 15:41:25Patient: BHUMIKA JONES Date/Time01/07/2019 15:25 CDTReason for [...] CSigned (Electronic Signature): 01/07/2019 3:41 pmThyroid Stimulating Xznyxcd1274-24-00 03:07:04* Test Item Value Reference Range Interpretation Comme nts TSH (test code = TSH) 9.650 mIU/mL 0.270-4.200 H Lipid Mloii7504-72-52 03:07:03* Test Item Value Reference Range Interpretation Comme nts Cholesterol Total (test code = Cholesterol Total) 199 mg/dL 0-200 RISK OF HEART DISEASEPublished by [place] [employer] Association Analyte Optimal Borderline Increased RiskCHOL [...] is LDL/HDL Ratio=LDL Calc/HDL Chol HCG Qualitative Amcbk4861-96-65 02:33:13* Test Item Value Reference Range Interpretation Comme nts HCG, Serum Qual (test code = HCG, Serum Qual) Negative Lot # (test code = Lot #) [id number] N Expiration Dt (test code = Expiration Dt) 2020-04-23 N Neg Control (test code = Neg Control) Negative Pos Control (test code = Pos Control) Positive Internal QC (test code = Int ernal QC) Acceptable Drugs of Abuse Urine 78680-37-76 18:58:11* Test Item Value Reference Range Interpretation [...] = Cannabinoid Screen Ur) Negative Negative Alcohol Haiah7680-46-69 18:47:34* Test Item Value Reference Range Interpretation Comme nts Ethanol Level (test code = Ethanol Level) <0.00 g/dL 0.00-0.01 Intoxicated 0.08 0 g/dL or more Ethanol Inst (test code = Ethanol Inst) <0 N Comprehensive Metabolic Cgfjn6034-27-43 18:47:33* Test Item Value Reference Range Interpretation [...] A/G Ratio) 1.0 ratio N Comprehensive Metabolic Yxbva1603-27-00 18:47:33* Test Item Value Reference Range Interpretation [...] is not provided, and the patient is -[place], multiply by 1.212. If sex is not [...] the National Kidney Foundation, http://nkdep.nih.gov Comprehensive Metabolic Qeylp7282-62-31 18:47:33* Test Item Value Reference Range Interpretation [...] is not provided, and the patient is -[place], multiply by 1.212. If sex is not [...] is not provided, and the patient is -[place], multiply by 1.212. If sex is not [...] Kidney Foundation, http://nkdep.nih.gov Complete Blood Count with Xnnuvwbnfnpj1281-56-17 18:15:23* Test Item Value Reference Range Interpretation [...] code = IPF) 0 % N Automated Mmmgrwtsiife5064-21-92 18:15:23* Test Item Value Reference Range Interpretation Comme nts Neutro Auto (test code = Sunny tro Auto) 42.1 % 36.0-70.0 Lymph Auto (test code = Lymph Auto) 40.0 % 12.0-44.0 Nuckolls Auto (test code = Nuckolls Auto) 12.2 % 0.0-11.0 H Eos, Auto (test code = Eos, Auto) 4.9 % 0.0-7.0 Basophil Auto (test code = B asophil Auto) 0.6 % 0.0-2.0 Neutro Absolute (test code = Neutro Absolute) 2.2 x10 1.6-7.4 Lymph Absolute (test code = Lymph Absolute) 2.06 x10 .50-4.60 Nuckolls Absolute (test code = M richa Absolute) .63 x10 .00-1.20 Eos Absolute (test code = Eo s Absolute) 0.25 x10 0.00-0.74 Baso Absolute (test code = B aso Absolute) 0.03 x10 0.00-0.21 IG Lqxym0477-36-66 18:15:23* Test Item Value Reference Range Interpretation Comme nts IG (test code = IG) 0.2 % 0.0-5.0 IG Abs (test code = IG Abs) 0 x10 N Notes Date/Time Note Provider Source 2023-10-02 09:45:21 8IUHSuUaAtbJr7XXPgNWZI/YVu8DwIvrwZ4kdsVX ylwYtgc9qQEhuTDUfu9nHHtg1556-14-30H01:45 :21 We are unable to release any pt information with out prior pt permission. However, Risperdal is not generally managed by neurology and would be best managed by psychiatrist. 39634-0Qndhzyjda encounter EoplDQ5867-42-42I29:50:37Telephone encounter NoteTXT1.2.840.372427.1.13.104.2.7.2.727 879|4860431479FVQevptnpyu for patient wfju40217-4ByfkQBYWWHWLPVNTkdvwhohe C-CDA narrative dfub586093212Scfple [place] [address] WoooIcgplwtqxUhqjchlcuGZYF9939240867LMWB VYAKKYQDEWIXEGSYND6200-81-41Y86:50:371.2 .840.380985.1.72.3.15|1.2.840.215730.1.1 3.104.2.7.2.727879_2070732000 Robyn [place] CIRCULATION MANAGER [facility] 2023-10-01 16:15:28 ho/eiEkROLeMviQ7kekZxa4zPqkq8oMNnXrT2svT yW1FsIL+6P7tRV/MgqBD328b8540-32-97D18:15 :28 Copied from [facility] #[id number]. Topic: Clinical - Order>> Oct 01, 2023 4:13 PM Patient Onshore Diver wrote:[facility] is calling regarding medication risperdal they were givng her 3mg and stating had dropped it to 1mg trying to confirm changeCall [phone] 84492-9Hrlndmwjl encounter BzgvGU5704-82-78W94:50:37Telephone encounter NoteTXT1.2.840.021351.1.13.104.2.7.2.727 879|2161783497RSGqtktrdcd for patient moyp07362-8BhowHCPSNAPDASKRfmxolmlm C-CDA narrative veal589004036Zoypm M Rash[address] StreetLjrtVhoelvbdvJvartdnudWSTZ9853746929KVUM TOYFGIFYEAAQZBVBRJ0426-65-61Z20:50:371.2 .840.039479.1.72.3.15|1.2.840.939731.1.1 3.104.2.7.2.727879_2070138255 Skyler Whittington [facility] 2022-10-11 12:29:00 PU2920043093jkZJO2lhUZkDzFSApL1zM+beQ2kA ReIZqdbjTBtpZNfZxvaSDFO2P4IWM62WJAWx4749 -04-20T12:29:00 [facility]Hospitalist Discharge SummaryREPORT#:[id number] REPORT STATUS: SignedDATE:10/11/22 TIME: 1229 PATIENT: BHUMIKA JONES UNIT #: [id number]#: [id number] [address] [birth year] AGE: 47 SEX: F ATTEND: [...] patient this morning with the help of courtroom deputy and she said that he lives with [...] capillary refill, normal range of motion, no edemaNeuro/HEADING MATCHER AND ASSEMBLER: altered mental status, alert Discharge Instructions PCPDischarge to: Home/Self CareAdditional Discharge Routines: PCP Follow-UpDiet: Resume Home Diet/FeedsActivity: As Tolerated Follow-up AppointmentsPCP follow-up: PCP: No Primary or Family Physician PCP follow up timeframe: In 6 days at 1230 RPT #:[id number] OF REPORTDSDischarge zkklujc6677-28-36E09:29:00B.GNTP70629091 -0428AVAvailable for patient dfjaUKWDTXAHINMAAM4081-39-87N89:30:16 [facility] 2022-09-18 17:27:00 [id number]OQCO aOGplXbd1XJwi1IsPGE+Tu5HpCFsxjhSk2uW3719 -03-28T17:27:00 [facility] ([facility])Electroencephalogram-EEGREPORT#:[id number] REPORT STATUS: SignedDATE:09/18/22 TIME: 172 PATIENT: BHUMIKA JONES UNIT #: [id number]#: [id number] ROOM[facility]BED: [facility]DOB: [birth year] AGE: 47 SEX: F ATTEND: Marly Mendenhall [facility] AUTHOR: Nelia Parker MD * ALL [...] 09/17 2100 AC 09/17 (LIPITOR) PO 10/17 210 2145 Central Nervous System Agents Sig/Ksenia Start [...] open eyes (commands were obtained using a manager apple) with opening the eyes the patient would [...] except with the patientmentioned. at 1736 RPT #:[id number] OF REPORTDIDiagnostic qysnncl3837-86-49G24:27:00B.DFCU36818866 -0532AVAvailable for patient rxbnSBEWTPIBQGXVIN6716-58-80G04:37:11 [facility] 2022-09-18 14:24:00 [id number]v2Buj v0cW8RufXEw0ou6+Co4eSzLRwCHoZOH0NTzd9364 -03-28T14:24:00 [facility] ([facility])Neurology Consultation NoteREPORT#:[id number] REPORT STATUS: SignedDATE:09/18/22 TIME: 1424 PATIENT: BHUMIKA JONES UNIT #: [id number]#: [id number] [address] [birth year] AGE: 47 SEX: F ATTEND: Marly Mendenhall [facility] AUTHOR: Nelia Parker MD * ALL edits or amendments must be made on the electronic/computer document * See AddendumHistory of Present Illness HPIRequesting clinician: see consult orderReason for consult:"AMS"Chief complaint:wanting to go home for her familyHPI:47-year-old female Citizen Of The [place] speaking only who was brought into the [...] refilled and the [facility]. Reportedly per the patient she did not like the halfway and does not like the food there [...] or seizures prior to herbeing in the halfway. Per the patient she get upset that [...] to her family. Only ambulance records from [facility] for patient who was brought in here [...] available to confirm the history and the halfway location is unknown to contact someone who [...] Ox 100 09/18 112 B/P 116/83 09/18 1127 B/P Mean 94.0 09/18 112 O2 Delivery Room air 09/18 1126 Temp 98.2 09/18 112 Pulse 64 09/18 1127 Resp 18 09/18 [...] MG 09/18 09/18 09/17 09/17 0553 0553 0278 1519Chemistry Hemoglobin A1c (4.5 - 5.6 % [...] 4 SMALL 50-200 MG H Laboratory Tests 03/27 1934 Hematology WBC (4.1 - 12.1 K/mm3) [...] - 8.0 pH UNITS) 6.5 Ur Specific Erwin (1.001 - 1.035 SG) 1.013 Urine Protein [...] in the past ornot. at 1652 RPT #:[id number] OF REPORTSJZnvkocfvicmt5654-13-49D35:24: 00B.VFLJ82252036-9708JRTfnjfslgw for patient skkhFNZTQJVMGWLDVJ2026-57-73O07:10:17 [facility] 2022-09-18 11:44:00 [id number]xPIpOCn9D 46uTpIqOeJvAGGwp3c/xOCqDgly3IRIiYYZe3685 -03-28T11:44:00 [facility]Hospital[facility] Progress NoteREPORT#:[id number] REPORT STATUS: SignedDATE:09/18/22 TIME: 1144 PATIENT: BHUMIKA JONES UNIT #: [id number]#: [id number] [address] [birth year] AGE: 47 SEX: F ATTEND: [...] patient this morning with the help of courtroom deputy and she said that he lives with [...] capillary refill, normal range of motion, no edemaNeuro/HEADING MATCHER AND ASSEMBLER: altered mental status, alert Diagnosis, Assessment Plan [...] afternoon if remains stable at 1147 RPT #:[id number] OF REPORTPRProgress kegn7262-57-40R79:44:00B.ODEP57163469-97 67AVAvailable for patient jixpPEABBYWQXIARIB7381-19-68J14:47:26 [facility] 2022-09-18 01:06:00 [id number]GD0l7C vUE8NSItaqpbJ9kKM1LpSo2EK+thM8roS/gC4535T01:06:00 [facility]ospital[facility] History PhysicalREPORT#:[id number] REPORT STATUS: SignedDATE:09/18/22 TIME: 0106 PATIENT: BHUMIKA JONES UNIT #: [id number]#: [id number] [address] [birth year] AGE: 47 SEX: F ATTEND: Marshall Orellana [facility] AUTHOR: Nelia Moffett MD * ALL [...] - 8.0 pH UNITS) 6.5 Ur Specific Erwin (1.001 - 1.035 SG) 1.013 Urine Protein [...] awakeCardiovascular: regular rate rhythmRespiratory: decreased breath soundsAbdomen: softNeuro/HEADING MATCHER AND ASSEMBLER: altered mental status, alert Diagnosis, Assessment PlanFree Text A P:HyponatremiaDo a work-upContinue Ringer lactate 50 cc/h monitor electrolytes Metabolic encephalopathyNeuro watchTreat underlying condition SchizophreniaContinue home medication once confirmed Seizure disorderContinue home medicationSeizure precaution DVT prophylaxisLovenoxAdvanced directive discussedMedication reviewed and reconciledBefore midnightI will sign off at 6 AM today further management by incoming MD thereafter at 0110 RPT #:[id number] OF REPORTHPHistory and physical mfhwgyensbf5680-58-50Y49:06:00B.BRVK5391 0328-0013AVAvailable for patient jrlcOYLZABTUJSZNZD7466-55-49V43:10:56 [facility] 2022-09-17 14:34:00 [id number]/Kz9+k7uBThmINXV OeNxNaAPJJPqCBjQ415UoRBLTLY5Pi24W9zk7179 -03-27T14:34:00 [facility] ([facility])EMERGENCY PROVIDER REPORTREPORT#:[id number] REPORT STATUS: SignedDATE:09/17/22 TIME: 4 PATIENT: BHUMIKA JONES UNIT #: [id number]#: [id number] ROOM[facility]BED: [facility]1AGE: 47 SEX: F PCP PHYS: No Primary or Family PhysicianSERVICE AUTHOR: Valentina Samayoa MD * ALL edits or amendments must be made on the electronic/computer document * HPI-General Illness Free Text HPI NotesFree Text HPI Llimo16-kzot-hjj female presents after possible seizure episode at [facility], will assessment patient is not fully oriented, and cannot provide history of theevents of today when asked multiple times. Additional history limited as the patient is tearful and not fully oriented. I spoke to the patient's sister Lewis Chiang, phone #[phone] by phone, who reports the patient has been missing from home for 8 days. Reports when the patient is medically cleared they can come get the patient. [facility] PMH: Seizures, schizophrenia. GeneralInitial Greet [...] #30 TABS Prov: 09/13/22 DC: 09/14/[address] (GINA CALLES) 1,000 MG PO DAILY DIVALPROEX DR (GINA CALLES) 1,000 MG PO DAILY #60 TABS Prov: 09/13/22 DC: 09/14/22 1459 carpentry teacher correction Reported MedicationsDIVALPROEX ER (DEPAKOTE ER) 1,000 [...] - 8.0 pH UNITS) 6.5 Ur Specific Erwin (1.001 - 1.035 SG) 1.013 Urine Protein [...] medication refill, drowsy, admitted, ultimately discharged back [facility]]-My EKG interpretation: I directly visualized and [...] 1634 )( Accepted Date 09/17/22 at 1114RPT #:[id number] OF REPORTEDEmergency department mmvkwu4532-36-36F87:34:00B.OUPI76466100- 0357AVAvailable for patient acakMKCBVAOPMOSUUZ7187-11-18K41:14:25 [facility] 2022-09-17 00:19:00 [id number]+/9FMdISq WV/rySEI0WDytDWA+SjBBKra+/rPOd5mZ6WT9443 -03-27T00:19:00 [facility]EMERGENCY PROVIDER REPORTREPORT#:[id number] REPORT STATUS: SignedDATE:09/17/22 TIME: 0019 PATIENT: BHUMIKA JONES UNIT #: [id number]#: [id number] ROOM/BED:AGE: 47 SEX: F PCP PHYS: No Primary or Family PhysicianSERVICE AUTHOR: Asim Jack MD * ALL edits or amendments must be made on the electronic/computer document * HPI-General Illness GeneralInitial Greet Date/Time 09/16/22 9965 PresentationChief Complaint Anxiety, Not feeling well Free Text HPI NotesFree Text HPI NotesPatient brought in by EMS from local [facility] after increasing anxiety and concern for possible seizure activity. She was recently admitted here at [facility] and worked up for possible seizures. She [...] #30 TABS Prov: 09/13/22 DC: 09/14/22 1500 carpentry teacher correctionDIVALPROEX (GINA CALLES) 1,000 MG PO DAILY DIVALPROEX DR TEOFILO CALLES) 1,000 MG PO DAILY #60 TABS Prov: 09/13/22 DC: 09/14/22 1459 carpentry teacher correction Reported MedicationsDIVALPROEX ER (DEPAKOTE ER) 1,000 [...] Pulse Ox 99 09/17 0016 B/P 142/84 09/18 15 B/P Mean [...] % (Auto) (14.1 - 45.4 %) 29.6 Nuckolls % (Auto) (2.5 - 11.7 %) 10.8 Eos % (Auto) (0.0 - 6.2 %) 2.9 Baso % (Auto) (0.0 - 2.1 %) 0.7 Gran # (2.0 - 13.7 k/mm3) 3.12 Lymph # (Auto) (0.6 - 3.8 K/mm3) 1.65 Nuckolls # (Auto) (0.11 - 0.59 K/mm3) 0.60 [...] in the medical decision-making. ECG #1 InterpretationText/Dict [id number] EKG shows normal sinus rhythm and rate of 64. There is no acute ST elevation to suggest ischemia. Normal axis and intervals without significant hypertrophy or ectopy. Nonspecific T wave changes noted with low voltage. I personally reviewed and interpreted the EKG Re-Evaluation MDM Free Text MDM NotesFree Text MDM NotesPatient presents from local halfway with concern for possible seizure activity. I [...] for discharge. Patient urged to follow-up with [facility] in the next 2 to 3 days Re-Evaluation/Progress #1Time of Re-Eval 0136Re-Eval Status Unchanged ED CourseMedication(s) OrderedMedication(s) Ordered:Central Nervous System Agents Sig/Ksenia Start time Last Medication Dose Route Stop Time Status Admin Midazolam HCl 1 MG X1ED STA 09/16 2304 DC 09/16 IV 09/16 2306 2345 Patient Discharge Departure Vital Signs/ConditionVital SignsFirst [...] (Adult)Additional InstructionsPlease follow-up with [facility], [facility], and neurology. Return if any confusion, headache, stiff neck, fever, vomiting, or any other new concerns. Please take all your medications as instructedReferralsProvider Group: [facility] Follow-Up: 2-3 Days Provider Referral: Nelia Parker MD Follow-Up: 2-3 Days Address: [address] [place] [address] [address] [place] [address] Resource Referral: [facility] Follow-Up: 2-3 Days Address: [address] [place] [address] at 0140RPT #:[id number] OF REPORTEDEmergency department euhprm2070-42-32P46:19:00B.[id number]- 0005AVAvailable for patient nmqgOTKPRVSDYZBUSI2069-96-90L42:41:10 [facility] 2022-09-15 12:06:00 [id number] Ooll1u+Te7Q39jnRIzwMgRmzi2HeU4x2U0737851 -03-25T12:06:00 [facility] ([facility])Electroencephalogram-EEGREPORT#:[id number] REPORT STATUS: SignedDATE:09/15/22 TIME: 1206 PATIENT: BHUMIKA JONES UNIT #: [id number]#: [id number] ROOM[facility]BED: [facility]: [birth year] AGE: 47 SEX: F [...] stimulation were not performed. No electrographic seizures recorded.Impression/Conclusion:Consideri ng some technical difficulties due to artifact as mentioned above, overall this is a normal awake and drowsy EEG recording with no epileptiform discharges or electrographic seizures recorded. at 1209 RPT #:[id number] OF REPORTDIDiagnostic huiwkgq3489-02-63D50:06:00B.[id number] -0179AVAvailable for patient abshWBFJJXBBMHBOKJ9886-70-17J86:09:33 [facility] 2022-09-15 12:00:00 [id number] /BhrBcDbyBkIb4cBrY2QjjHc7zNZ7Rfv/lB49052T12:00:00 [facility] ([facility])Hospitalist Discharge SummaryREPORT#:[id number] REPORT STATUS: SignedDATE:09/15/22 TIME: 1200 PATIENT: BHUMIKA JONES UNIT #: [id number]#: [id number] ROOM/BED: [facility]-WDOB: [birth year] AGE: 47 SEX: F ATTEND: Vladimir [...] evaluated for possible seizure episode. She is Citizen [place]-speakingpatient only in custodial foreman was used. Patient denies to have any seizure episodes at home she just ran out of her medications and came to the hospital. Patient otherwise remains hemodynamically stable. However she is too drowsy to be discharged safely back home. I discussed the case with the patient.She wants her medications to be refilled and that she wants to go back to her halfway.I discussed with her about potential seizure episodes in the future use of medications compliance with the medications and further prescriptions. She states that she would management to the halfway. I have requested case management to evaluate [...] initial diagnosis and related differentials with the patient/aged or disabled care worker including RN. All concerns and questions are answered to the best of my abilities based on theavailable data.I have initiated the plan of care based on preliminary diagnosis,requested appopriate consultations with labs/imagings. Patient/aged or disabled care worker verbalizes understanding of the plan of care. [...] timeframe: In 1-2 weeks at 1202 RPT #:[id number] OF REPORTDSDischarge kucilnb6178-44-99G85:00:00B.[id number] -0169AVAvailable for patient vlkvQOURPWYOSMGTSS6092-74-64C59:03:09 [facility] 2022-09-14 16:56:00 [id number]+bb0q7K26L pDT6D6/9RIiUK4S0f7yzig+egBoUNU42G/eB20672022T16:56:00 [facility] ([facility])Neurology Consultation NoteREPORT#:[id number] REPORT STATUS: SignedDATE:09/14/22 TIME: 1656 PATIENT: SILAS JONESPCION UNIT #: [id number]#: [id number] ROOM/BED: 250-WDOB: [birth year] AGE: 47 SEX: F ATTEND: Jim Jaimes [facility] AUTHOR: Vickie Lewis MD * ALL [...] evaluated for possible seizure episode. She is Citizen [place]-speakingpatient only in custodial foreman was used. Patient denies to have any [...] (SODIUM CHLORIDE 0.9% 1000 ML) 1,000 ML .[id number] IV Trazodone HCl (DESYREL) 50 MG BEDTIME PRN PRN PO Sodium Chloride (SODIUM CHLORIDE 0.9% 1000 ML) 1,000 ML .[id number] IV Carbamazepine (TEGretol) 400 MG BID PO Divalproex Sodium (DEPAKOTE DR) 1,000 MG BID PO (DC) Acetaminophen (TYLENOL) 650 MG Q6H PRN PRN PO Ondansetron HCl (ZOFRAN) 4 MG Q4H PRN PRN IV Ceftriaxone Sodium (ROCEPHIN) 1 GM Q24H IV (CAN) Lactated Ringer's (LACTATED RINGERS) 1,000 ML .Z08L34Y IV Ceftriaxone Sodium (ROCEPHIN) 1 GM X1ED [...] (0.88 - 1.13 INR Unit) 0.95 PTT (Norman) (24 - 37.7 SECONDS) 34.6 Laboratory Tests [...] % (Auto) (14.1 - 45.4 %) 33.6 Nuckolls % (Auto) (2.5 - 11.7 %) 13.4 H Eos % (Auto) (0.0 - 6.2 %) 7.4 H Baso % (Auto) (0.0 - 2.1 %) 0.9 Gran # (2.0 - 13.7 k/mm3) 2.61 Lymph # (Auto) (0.6 - 3.8 K/mm3) 1.96 Nuckolls # (Auto) (0.11 - 0.59 K/mm3) 0.78 [...] - 8.0 pH UNITS) 6.0 Ur Specific Erwin (1.001 - 1.035 SG) 1.032 Urine Protein [...] cardiopulmonary process.Impression By: NadiyaMKM4 - Igor Almonte, [facility] - CT HEAD/BRAIN W/O CONT [...] deferred to primary team. at 1707 RPT #:[id number] OF REPORTVPTsvtvjtixoog7928-32-38A80:56: 00B.[id number] for patient jpoxMKILFEISJLOLVP1469-96-48W82:07:40 [facility] 2022-09-14 14:55:00 [id number]/XBQIX6x8A1GDvY52xN5MLHtwzl OA6nhx8B6WMXeBNHkAUJ3wyHJ6DTLYKVPcC35868 -03-24T14:55:00 [facility] ([facility])Hospitalist History PhysicalREPORT#:[id number] REPORT STATUS: SignedDATE:09/14/22 TIME: 145 PATIENT: BHUMIKA JONES UNIT #: [id number]#: [id number] ROOM/BED: [facility]WDOB: [birth year] AGE: 47 SEX: F ATTEND: Jim Jaimes [facility] AUTHOR: Vladimir Forbes MD * ALL [...] evaluated for possible seizure episode. She is Citizen [place]-speakingpatient only in custodial foreman was used. Patient denies to have any [...] % (Auto) (14.1 - 45.4 %) 33.6 Nuckolls % (Auto) (2.5 - 11.7 %) 13.4 H Eos % (Auto) (0.0 - 6.2 %) 7.4 H Baso % (Auto) (0.0 - 2.1 %) 0.9 Gran # (2.0 - 13.7 k/mm3) 2.61 Lymph # (Auto) (0.6 - 3.8 K/mm3) 1.96 Nuckolls # (Auto) (0.11 - 0.59 K/mm3) 0.78 [...] - 8.0 pH UNITS) 6.0 Ur Specific Erwin (1.001 - 1.035 SG) 1.032 Urine Protein [...] cardiopulmonary process.Impression By: NadiyaMKM4 - Igor Almonte, [facility] - CT HEAD/BRAIN W/O CONT [...] evaluated for possible seizure episode. She is Citizen [place]-speakingpatient only in custodial foreman was used. Patient denies to have any [...] initial diagnosis and related differentials with the patient/aged or disabled care worker including RN. All concerns and questions are answered to the best of my abilities based on theavailable data.I have initiated the plan of care based on preliminary diagnosis,requested appopriate consultations with labs/imagings. Patient/aged or disabled care worker verbalizes understanding of the plan of care. 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 Shecontinues to [...] plan of care. at 0449 at 0540RPT #:[id number] OF REPORTEDEmergency department vzlvkl4488-02-96Y82:21:00B.[id number]- 0034AVAvailable for patient gbooHOLJFNBUBRQUBU3072-01-73L50:49:55 [facility] 2022-09-13 20:34:00 [id number]YDHs 0yeU7vcJfYpZDMAHMjxcgfuFQP8qGsB23liq1292 -03-23T20:34:00 [facility] ([facility])EMERGENCY PROVIDER REPORTREPORT#:[id number] REPORT STATUS: SignedDATE:09/13/22 TIME: 2033 PATIENT: BHUMIKA JONES UNIT #: [id number]#: [id number] ROOM/BED: [facility]-WAGE: 47 SEX: F PCP PHYS: No Primary or Family PhysicianSERVICE AUTHOR: Stephanie Bosch * ALL edits or amendments must be made on the electronic/computer document * Provider in Triage - Adult Provider in TriageInitial Sarita Date/Time 09/13/222017 Sarita DeleonI have greeted and [...] (RisperDAL) 3 MG PO DAILY at 1707RPT #:[id number] OF REPORTEDEmergency department nxfrni1585-60-39M28:34:00B.[id number]- 0683AVAvailable for patient ldzhLDRAQRQFOKNKSR3485-26-93R65:08:12 [facility] 2022-09-13 09:58:00 [id number]clfA POQsHlyn1gCDeQlFr8VxSUxMdcfzEf3xU5qn1546 -03-23T09:58:00 [facility]EMERGENCY PROVIDER REPORTREPORT#:[id number] REPORT STATUS: SignedDATE:09/13/22 TIME: 957 PATIENT: BHUMIKA JONES UNIT #: [id number]#: [id number] ROOM/BED:AGE: 47 SEX: F PCP PHYS: No Primary or Family PhysicianSERVICE AUTHOR: Brad Woodall DO * ALL edits or amendments must be made on the electronic/computer document * HPI-General Illness Free Text HPI NotesFree Text HPI Foufk88-rqzm-dde female past medical history epilepsy out of [...] - 8.0 pH UNITS) 6.0 Ur Specific Erwin (1.001 - 1.035 SG) 1.024 Urine Protein [...] % (Auto) (14.1 - 45.4 %) 34.0 Nuckolls % (Auto) (2.5 - 11.7 %) 10.1 Eos % (Auto) (0.0 - 6.2 %) 2.7 Baso % (Auto) (0.0 - 2.1 %) 0.7 Gran # (2.0 - 13.7 k/mm3) 3.04 Lymph # (Auto) (0.6 - 3.8 K/mm3) 1.98 Nuckolls # (Auto) (0.11 - 0.59 K/mm3) 0.59 [...] YesDate 09/13/22Time 1000Interpreted by and reviewed by meNL ECG Interpretation Normal rate, Normal sinus rhythm, [...] MG PO BEDTIME #[address] (KATARINAAKOMADHU CALLES) 1,000 MG PO DAILY DIVALPROEX DR [...] or a call to 911. at 1327RPT #:[id number] OF REPORTEDEmerchi st[facility] department ricgbz9816-51-96N43:58:00B.[id number]- 0203AVAvailable for patient nwnhAORDUTUWZUGYCU2935-46-54I10:28:04 [facility]
--- NOTE | 2023-10-29 00:10 | EDPHYS ---
Physician Documentation [facility] Name: Davida Hodges Age: 48 yrs Sex: Female : 1975 Arrival Date: 10/28/2023 Time: 23:13 Bed 14 Private MD: ED Physician Sebastian Silva HPI: 10/27 23:20 This 48 yrs old Female presents to ER via Unassigned with complaints of Rectal sp4 Bleeding. 10/28 00:03 48-year-old female presents with complaint of rectal bleeding. Patient is not able to sp4 explain when the rectal bleeding started. . Historical: - Allergies: 10/27 23:46 CARBAMAZEPINE DERIVATIVES; vc1 23:46 Depakote; vc1 23:46 Tegretol; vc1 - PMHx: 23:46 ADD/ADHD; Anxiety; Bipolar disorder; Chronic pain; hemorrhoids; Schizophrenia; Seizures;vc1 - PSHx: 23:46 None; vc1 - Immunization history:: Client reports having NOT received the Covid vaccine. Flu vaccine is not up to date. - Infectious Disease History:: Denies. - Social history:: Smoking status: Patient denies any tobacco usage or history of. - Family history:: not pertinent. ROS: 10/28 00:03 Constitutional: Negative for fever, chills, and weight loss, positive for reported sp4 rectal bleeding All other systems are negative, Exam: 00:03 Constitutional: This is a well developed, well nourished patient who is awake, alert, sp4 and in no acute distress. Head/Face: Normocephalic, atraumatic. Eyes: Pupils equal round and reactive to light, extra-ocular motions intact. Lids and lashes normal. Conjunctiva and sclera are not injected. Cornea within normal limits. Periorbital areas with no swelling, redness, or edema. ENT: Nares patent. No nasal discharge, no septal abnormalities noted. Tympanic membranes are normal and external auditory canals are clear. Oropharynx with no redness, swelling, or masses, exudates, or evidence of obstruction, uvula midline. Mucous membranes moist. Neck: Trachea midline, no thyromegaly or masses palpated, and no cervical lymphadenopathy. Supple, full range of motion without nuchal rigidity, or vertebral point tenderness. Chest/axilla: Normal chest wall appearance and motion. Nontender with no deformity. No lesions are appreciated. Cardiovascular: Regular rate and rhythm with a normal S1 and S2. No gallops, murmurs, or rubs. Normal PMI, no JVD. No pulse deficits. Respiratory: Lungs have equal breath sounds bilaterally, clear to auscultation and percussion. No rales, rhonchi or wheezes noted. No increased work of breathing, no retractions or nasal flaring. Abdomen/GI: Soft, with normal bowel sounds. No distension or tympany. No guarding or rebound. No evidence of tenderness throughout. Back: No spinal tenderness. No costovertebral tenderness. Female : Normal external genitalia. Exam reveals no bleeding, no melena, no maroon stool, there are skin tags present on exam but otherwise normal rectal exam. Skin: Warm, dry with normal turgor. Normal color with no rashes, no lesions, and no evidence of cellulitis. MS/ Extremity: Pulses equal, no cyanosis. Neurovascular intact. Full, normal range of motion. Neuro: Awake and alert, GCS 15, oriented to person, place, time, and situation. Cranial nerves II-XII grossly intact. Motor strength 5/5 in all extremities. Sensory grossly intact. Vital Signs: 10/27 23:38 BP 141 / 93; Pulse 84; Resp 14; Temp 97.5; Pulse Ox 100% ; vc1 23:41 Weight 81.65 kg; Height 5 ft. 0 in. ; vc1 23:41 Body Mass Index 35.15 (81.65 kg, 152.4 cm) vc1 Ingrid Coma Score: 10/28 00:03 Eye Response: spontaneous(4). Motor Response: obeys commands(6). Verbal Response: sp4 oriented(5). Total: 15. MDM: 10/27 23:56 Patient medically screened. sp4 10/28 00:03 Differential diagnosis: hemorrhoids, fissure, abscess, pilonidal cyst, condyloma. Data sp4 reviewed: vital signs, nurses notes, old medical records. ED course: Sign of rectal vaginal bleeding on exam. Stable for discharge home.. Administered Medications: No medications were administered Disposition Summary: 10/29/23 00:09 Discharge Ordered Notes: Location: Home sp4 Problem: new sp4 Symptoms: have improved sp4 Condition: Stable sp4 Diagnosis - Encounter for general adult medical examination sp4 - Normal physical exam sp4 Followup: sp4 - With: Private Physician - When: 7 - 10 days - Reason: Recheck today's complaints Discharge Instructions: - Discharge Summary Sheet sp4 - Medical Screening Exam sp4 Signatures: Dayanara Paz RN RN vc1 Sebastian Silva MD MD sp4
--- NOTE | 2023-10-29 00:10 | ER ---
Nurse's Notes [facility] Name: Davida Hodges Age: 48 yrs Sex: Female : 1975 Arrival Date: 10/28/2023 Time: 23:13 Bed 14 Private MD: Diagnosis: Encounter for general adult medical examination;Normal physical exam Presentation: 10/27 23:38 Chief complaint: Patient states: rectal bleeding. Coronavirus screen: Client denies vc1 travel out of the [place] in the last 14 days. At this time, the client does not indicate any symptoms associated with coronavirus-19. Ebola Screen: Patient negative for fever greater than or equal to 101.5 degrees Fahrenheit, and additional compatible Ebola Virus Disease symptoms Patient denies exposure to infectious person. Patient denies travel to an Ebola-affected area in the 21 days before illness onset. No symptoms or risks identified at this time. 23:38 Method Of Arrival: Ambulatory vc1 23:41 Initial Sepsis Screen: Does the patient meet any 2 criteria? No. Patient's initial vc1 sepsis screen is negative. Does the patient have a suspected source of infection? No. Patient's initial sepsis screen is negative. Risk Assessment: Do you want to hurt yourself or someone else? Patient reports no desire to harm self or others. 23:41 Acuity: CARMITA 3 vc1 Triage Assessment: 23:48 General: Appears in no apparent distress. comfortable, Behavior is uncooperative. Pain: vc1 Denies pain. EENT: No deficits noted. No signs and/or symptoms were reported regarding the EENT system. GI: Abdomen is round non-distended, Reports rectal bleeding. Historical: - Allergies: 23:46 CARBAMAZEPINE DERIVATIVES; vc1 23:46 Depakote; vc1 23:46 Tegretol; vc1 - PMHx: 23:46 ADD/ADHD; Anxiety; Bipolar disorder; Chronic pain; hemorrhoids; Schizophrenia; Seizures;vc1 - PSHx: 23:46 None; vc1 - Immunization history:: Client reports having NOT received the Covid vaccine. Flu vaccine is not up to date. - Infectious Disease History:: Denies. - Social history:: Smoking status: Patient denies any tobacco usage or history of. - Family history:: not pertinent. Screenin:48 Abuse screen: Denies threats or abuse. Nutritional screening: No deficits noted. vc1 Tuberculosis screening: No symptoms or risk factors identified. 10/28 00:10 [facility] ED Fall Risk Assessment (Adult) History of falling in the last 3 months, vc1 including since admission No falls in past 3 months (0 pts) Confusion or Disorientation No (0 pts) Intoxicated or Sedated No (0 pts) Impaired Gait No (0 pts) Mobility Assist Device Used No (0 pt) Altered Elimination No (0 pt) Score/Fall Risk Level 0 - 2 = Low Risk Oriented to surroundings, Maintained a safe environment, Educated pt \T\ family on fall prevention, incl call for assistance when getting out of bed. Assessment: 00:06 General: full time staff interpreter used for discharge instructions. Abhijit [id number]. vc1 00:08 General: Appears in no apparent distress. comfortable, unkempt, Behavior is vc1 cooperative. Pain: Denies pain. Neuro: Level of Consciousness is awake, obeys commands, Oriented to person, place, situation. Cardiovascular: Heart tones S1 S2. Respiratory: Airway is patent Respiratory effort is even, unlabored, Respiratory pattern is regular, symmetrical, Breath sounds are clear. GI: Abdomen is round non-distended, Bowel sounds present X 4 quads. Reports rectal bleeding. : No deficits noted. No signs and/or symptoms were reported regarding the genitourinary system. EENT: No deficits noted. No signs and/or symptoms were reported regarding the EENT system. Derm: Skin is intact, is healthy with good turgor, Skin is dry, Skin is normal, Skin temperature is warm. Vital Signs: 10/27 23:38 BP 141 / 93; Pulse 84; Resp 14; Temp 97.5; Pulse Ox 100% ; vc1 23:41 Weight 81.65 kg; Height 5 ft. 0 in. ; vc1 23:41 Body Mass Index 35.15 (81.65 kg, 152.4 cm) vc1 Hamilton Coma Score: 10/28 00:03 Eye Response: spontaneous(4). Motor Response: obeys commands(6). Verbal Response: sp4 oriented(5). Total: 15. ED Course: 10/27 23:18 Patient arrived in ED. mr 23:20 Sebastian Silva MD is Attending Physician. sp4 23:46 Triage completed. vc1 23:47 Arm band placed on right wrist. vc1 23:50 Patient has correct armband on for positive identification. Placed in gown. Call light vc1 in reach. Pulse ox on. NIBP on. 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 vc1 00:28 Dayanara Paz, RN is Primary Nurse. vc1 00:28 Provided Education on: No rectal bleed or tear. vc1 00:28 Patient did not have IV access during this emergency room visit. vc1 Administered Medications: No medications were administered Medication: 00:08 VIS not applicable for this client. vc1 Outcome: 00:07 Condition: good vc1 00:09 Discharge ordered by . sp4 00:28 Discharged to home ambulatory, vc1 00:28 Discharge instructions given to patient, Instructed on discharge instructions, follow up and referral plans. Demonstrated understanding of instructions, follow-up care, 00:28 Patient left the ED. vc1 Signatures: Yanira Santa, Reg Reg mr Dayanara Paz, GERONIMO RN vc1 Sebastian Silva MD MD sp4
[2023-10-29 01:25] VITALS: BP 141/93; TEMP 97.5; O2SAT 100
== END 2023-10-29 00:28 | disposition home or self-care (01) ==
LOC: ER 23:13
DX: Z71.1 Person with feared health complaint in whom no diagnosis is made (principal)
CPT/HCPCS: 99283

== ENCOUNTER 2023-11-26 15:13 | Emergency (ER) | payer SELFPAY ==
--- OUTSIDE RECORDS SUMMARY | 2023-11-26 15:25 | XMS REPORT | Continuity of Care Document ---
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 2019-07-22 19:39:00 39.06 kg/m2 [facility] Systolic blood pressure 2019-07-14 03:33:00 127 mm[Hg[facility] Diastolic blood pressure 2019-07-14 03:33:00 88 mm[Hg[facility] Heart rate 2019-07-14 03:33:00 79 /min [facility] Respiratory rate 2019-07-14 03:33:00 16 /min [facility] Oxygen saturation in Arterial blood by Pulse oximetry 2019-07-14 03:33:00 97 /min [facility] Body weight 2019-07-14 02:16:00 90.719 kg [facility] BMI 2019-07-14 02:16:00 39.06 kg/m2 [facility] Body temperature 2019-07-14 02:15:00 36.78 Oma [facility] Body weight 2019-07-10 20:39:00 90.719 kg [facility] BMI 2019-07-10 20:39:00 39.06 kg/m2 [facility] Systolic blood pressure 2019-01-21 23:34:00 133 mm[facility]Hg[facility] Diastolic blood pressure 2019-01-21 23:34:00 78 mm[Hg[facility] Heart rate 2019-01-21 23:34:00 66 /min [facility] Body temperature 2019-01-21 23:34:00 36.94 Oma [facility] Respiratory rate 2019-01-21 23:34:00 18 /min [facility] Body height 2019-01-21 23:34:00 147.3 cm [facility] Body weight 2019-01-21 23:34:00 68.04 kg [facility] BMI 2019-01-21 23:34:00 31.35 kg/m2 [facility] Oxygen saturation in Arterial blood by Pulse oximetry 2019-01-21 23:34:00 100 /min [facility] Systolic blood pressure 2019-01-21 23:34:00 133 mm[Hg[facility] Diastolic blood pressure 2019-01-21 23:34:00 78 mm[Hg[facility] Heart rate 2019-01-21 23:34:00 66 /min [facility] Body temperature 2019-01-21 23:34:00 36.94 Oma [facility] Respiratory rate 2019-01-21 23:34:00 18 /min [facility] Body height 2019-01-21 23:34:00 147.3 cm [facility] Body weight 2019-01-21 23:34:00 68.04 kg [facility] BMI 2019-01-21 23:34:00 31.35 kg/m2 [facility] Oxygen saturation in Arterial blood by Pulse oximetry 2019-01-21 23:34:00 100 /min [place] o [facility] BP Systolic 2023-11-25 16:08:00 109 mm[Hg] Step hen F Ben BP Diastolic 2023-11-25 16:08:00 72 mm[Hg] Franck phen F Ben Weight Measured 2023-11-25 16:08:00 161.40 pounds Henry Etta Contreras Height Measured 2023-11-25 16:08:00 56.50 inches Henry Etta Contreras Body Temperature 2023-11-25 16:08:00 97.50 degrees Henry Etta Contreras Heart Rate 2023-11-25 16:08:00 80.00 /min Antoinette en F Ben Respiratory Rate 2023-11-25 16:08:00 18.00 /min Henry Etta Ben BP Systolic 2023-10-25 15:53:00 115 mm[Hg] Step hen F Ben BP Diastolic 2023-10-25 15:53:00 89 mm[Hg] Franck phen F Ben Weight Measured 2023-10-25 15:53:00 168.80 pounds Henry F Ben Height Measured 2023-10-25 15:53:00 56.50 inches Henry F Ben Body Temperature 2023-10-25 15:53:00 98.50 degrees Henry F Ben Heart Rate 2023-10-25 15:53:00 79.00 /min Antoinette en F Ben Respiratory Rate 2023-10-25 15:53:00 Henry F Ben BP Systolic 2023-10-04 15:28:00 135 mm[Hg] Step hen F Ben BP Diastolic 2023-10-04 15:28:00 93 mm[Hg] Franck phen F Ben Weight Measured 2023-10-04 15:28:00 169.00 pounds Henry F Ben Height Measured 2023-10-04 15:28:00 56.50 inches Henry F Ben Body Temperature 2023-10-04 15:28:00 98.20 degrees Henry F Ben Heart Rate 2023-10-04 15:28:00 75.00 /min Antoinette en F Ben Respiratory Rate 2023-10-04 15:28:00 18.00 /min Henry F Ben BP Systolic 2023-09-16 16:13:00 147 mm[Hg] Step hen F Ben BP Diastolic 2023-09-16 16:13:00 87 mm[Hg] Franck phen F Ben Weight Measured 2023-09-16 16:13:00 167.00 pounds Henry F Ben Height Measured 2023-09-16 16:13:00 56.50 inches Henry F Ben Body Temperature 2023-09-16 16:13:00 98.20 degrees Henry F Ben Heart Rate 2023-09-16 16:13:00 73.00 /min Antoinette en F Ben Respiratory Rate 2023-09-16 16:13:00 18.00 /min Henry F Ben BP Systolic 2023-08-01 10:10:00 107 mm[Hg] Step hen F Ben BP Diastolic 2023-08-01 10:10:00 69 mm[Hg] Franck phen F Ben Weight Measured 2023-08-01 10:10:00 171.00 pounds Henry F Ben Height Measured 2023-08-01 10:10:00 56.50 inches Henry F Ben Body Temperature 2023-08-01 10:10:00 98.30 degrees Henry F Ben Heart Rate 2023-08-01 10:10:00 96.00 /min Antoinette en F Ben Respiratory Rate 2023-08-01 10:10:00 19.00 /min Henry F Ben BP Systolic 2023-07-04 17:03:00 Step hen F Ben BP Diastolic 2023-07-04 17:03:00 Franck phen F Ben Weight Measured 2023-07-04 17:03:00 171.00 pounds Henry F Ben Height Measured 2023-07-04 17:03:00 56.50 inches Henry F Ben Body Temperature 2023-07-04 17:03:00 98.10 degrees Henry F Ben Heart Rate 2023-07-04 17:03:00 77.00 /min Antoinette en F Ben Respiratory Rate 2023-07-04 17:03:00 Henry F Ben BP Systolic 2023-06-04 16:08:00 116 mm[Hg] Step hen F Ben BP Diastolic 2023-06-04 16:08:00 82 mm[Hg] Franck phen F Ben Weight Measured 2023-06-04 16:08:00 171.00 pounds Henry F Ben Height Measured 2023-06-04 16:08:00 56.50 inches Henry F Ben Body Temperature 2023-06-04 16:08:00 98.20 degrees Henry F Ben Heart Rate 2023-06-04 16:08:00 69.00 /min Antoinette en F Ben Respiratory Rate 2023-06-04 16:08:00 Henry F Ben BP Systolic 2023-05-24 15:54:00 138 mm[Hg] Step hen F Ben BP Diastolic 2023-05-24 15:54:00 88 mm[Hg] Franck phen F Ben Weight Measured 2023-05-24 15:54:00 171.00 pounds Henry F Ben Height Measured 2023-05-24 15:54:00 56.50 inches Henry F Ben Body Temperature 2023-05-24 15:54:00 98.20 degrees Henry F Ben Heart Rate 2023-05-24 15:54:00 68.00 /min Antoinette en F Ben Respiratory Rate 2023-05-24 15:54:00 18.00 /min Henry F Ben BP Systolic 2023-05-17 15:07:00 106 mm[Hg] Step hen F Ben BP Diastolic 2023-05-17 15:07:00 68 mm[Hg] Franck phen F Ben Weight Measured 2023-05-17 15:07:00 170.00 pounds Henry F Ben Height Measured 2023-05-17 15:07:00 56.50 inches Henry F Ben Body Temperature 2023-05-17 15:07:00 98.20 degrees Henry F Ben Heart Rate 2023-05-17 15:07:00 65.00 /min Antoinette en F Ben Respiratory Rate 2023-05-17 15:07:00 20.00 /min Henry F Ben BP Systolic 2023-03-02 12:35:00 119 mm[Hg] Step hen F Ben BP Diastolic 2023-03-02 12:35:00 69 mm[Hg] Franck phen F Ben Weight Measured 2023-03-02 12:35:00 173.00 pounds Henry F Ben Height Measured 2023-03-02 12:35:00 56.50 inches Henry F Ben Body Temperature 2023-03-02 12:35:00 97.90 degrees Henry F Ben Heart Rate 2023-03-02 12:35:00 65.00 /min Antoinette en F Ben Respiratory Rate 2023-03-02 12:35:00 25.00 /min Henry F Ben BP Systolic 2023-01-09 17:12:00 140 mm[Hg] Step hen F Ben BP Diastolic 2023-01-09 17:12:00 87 mm[Hg] Franck phen F Ben Weight Measured 2023-01-09 17:12:00 176.20 pounds Henry F Ben Height Measured 2023-01-09 17:12:00 56.50 inches Henry F Ben Body Temperature 2023-01-09 17:12:00 98.20 degrees Henry F Ben Heart Rate 2023-01-09 17:12:00 73.00 /min Antoinette en F Ben Respiratory Rate 2023-01-09 17:12:00 19.00 /min Henry Contreras Procedures Procedure Date / Time Performed Performing Clinician Source ASSIGNMENT OF BENEFITS 2023-07-23 18:45:32 Docto r Unassigned, [place] [facility] REFERRAL- REQUEST/RESPONSE 2023-06-05 06:01:00 Doctor Unassigned, [place] [facility] REFERRAL- REQUEST/RESPONSE 2023-05-20 06:01:00 Doctor Unassigned, [place] [facility] COMP. METABOLIC PANEL (84285) 2022-09-07 01:38:00 Tayo Boyd [facility] CBC WITH DIFF 2022-09-07 01:38:00 Tayo Boyd [facility] URINALYSIS 2022-09-07 01:38:00 [facility] 2022-09-07 00:56:00 Tayo Boyd [facility] XR FOOT <3 VW LEFT 2022-09-07 00:56:00 Tayo Boyd [facility] CONSENT/REFUSAL FOR DIAGNOSIS AND TREATMENT 2022-09-06 22:08:37 Doctor Unassigned, [place] [facility] CT CERVICAL SPINE WO CONTRAST 2021-10-02 21:53:00 Rachael Frankanne [facility] CT LUMBAR SPINE WO CONTRAST 2021-10-02 21:53:00 Rachael Frankanne [facility] CT THORACIC SPINE WO CONTRAST 2021-10-02 21:53:00 Javed Frank [facility] XR FOREARM 2 VW RIGHT 2021-05-05 20:03:34 Jose Carlos Nunez [facility] XR WRIST 3+ VW RIGHT 2021-05-05 20:03:34 Chino Nunez [facility] NOTICE OF PRIVACY PRACTICES 2021-05-05 19:12:00 Doctor Unassigned, [place] [facility] CONSENT/REFUSAL FOR DIAGNOSIS AND TREATMENT 2021-05-05 19:11:19 Doctor Unassigned, [place] [facility] CONSENT/REFUSAL FOR DIAGNOSIS AND TREATMENT 2019-08-13 19:17:22 Doctor Unassigned, [place] [facility] CT HEAD WO CONTRAST 2019-07-22 22:24:37 Rachel Samayoa [facility] XR CERVICAL SPINE 2 VW 2019-07-22 21:59:59 Samantha Samayoa [facility] CBC WITH DIFFERENTIAL 2019-07-22 21:34:00 Yanira Samayoa [facility] XR CERVICAL SPINE 2 VW 2019-07-14 02:43:00 Ivory Owen [facility] XR ELBOW <3 VW LEFT 2019-07-14 02:43:00 Henry Owen [facility] XR KNEE <3 VW RIGHT 2019-07-14 02:43:00 Henry Owen [facility] XR SHOULDER <2 VW LEFT 2019-07-14 02:43:00 Ivory Owen [facility] [id number] Ecg Routine Ecg W/least 12 Lds W/i r 2017-09-24 00:00:00 Henry Etta Ben Encounters Start Date/Time End Date/Time Encounter Type Admission Type Attending [facility] Facility Care Department Encounter ID Source 2022-11-13 13:10:28 Inpatient [facility] [id number] [facility] 2022-11-05 09:23:13 Inpatient [facility] [id number] [facility] 2023-11-25 16:08:00 2023-11-25 16:08:[address] [facility] [id number] Henry Contreras 2023-11-25 00:00:00 2023-11-25 00:00:[address] [facility] [id number] Henry Contreras 2023-11-23 19:45:00 2023-11-24 19:04:00 [facility] [id number] [facility]) 2023-11-21 19:00:00 2023-11-22 01:00:00 Emergency [id number] 2023-11-16 23:05:00 2023-11-21 17:28:00 Inpatient ER JUAN MIGUEL [facility] [id number] PERFECTO Hanks 2023-11-15 16:24:00 2023-11-15 22:54:00 Emergency ER MELVINA SHEPHERD CHRTJP CHRTJP [id number] RODERICKGricel Schmitz [facility] 2023-10-28 12:27:38 2023-10-28 12:27:38 Outpatient [facility] [id number] Henry Contreras 2023-10-25 15:44:11 2023-10-25 15:44:11 Outpatient SFA [facility] [id number] Henry Contreras 2023-10-25 00:00:00 2023-10-25 00:00:00 Outpatient Visit [facility] [id number] Henry Contreras 2023-10-04 15:25:52 2023-10-04 15:25:52 Outpatient [facility]FA [facility] [id number] Henry Contreras 2023-10-01 00:00:00 2023-10-01 00:00:00 [facility] 1.2.840.114 350.1.13.10 4.2.7.2.686 [id number] [facility] 2023-09-16 16:03:08 2023-09-16 16:03:08 Outpatient SFA [facility] [id number] Henry Quiles Ben 2023-08-01 10:00:49 2023-08-01 10:00:49 Outpatient S[facility] [id number] Henry Contreras 2023-07-23 14:20:00 2023-07-23 16:57:02 Outpatient INDIO OLIVEROS HOWARD [facility] [id number] [facility] 2023-07-23 14:20:00 2023-07-23 16:57:02 Office Visit Indio Phelan [facility] 1..840.114 350.1.13.10 4.2.7.2.686 [id number] [facility] 2023-07-23 00:00:00 2023-07-23 00:00:00 Orders Only Doctor Unassigned, [place] [facility] 1.2840.114 350.1.13.10 4.2.7.2.686 [id number] [facility] 2023-07-04 16:48:23 2023-07-04 16:48:[address] [facility] [id number] Henry Contreras 2023-06-18 10:35:36 2023-06-18 10:35:36 Outpatient [facility] [id number] Henry Quiles Ben 2023-06-05 00:00:00 2023-06-05 00:00:00 Orders Only Doctor Unassigned, [place] [facility] 1.840.114 350.1.13.10 4.2.7.2.686 [id number] [facility] 2023-06-04 16:00:39 2023-06-04 16:00:39 Outpatient [facility] [id number] Henry Quiles [place] 2023-05-24 15:38:52 2023-05-24 15:38:52 Outpatient [facility] [id number] Henry Quiles [place] 2023-05-22 00:00:00 2023-05-22 00:00:00 Letter (Out) Neurology [facility] 1..840.114 350.1.13.10 4.2.7.2.686 [id number] [facility] 2023-05-20 00:00:00 2023-05-20 00:00:00 Orders Only Doctor Unassigned, [place] [facility] 1.2840.114 350.1.13.10 4.2.7.2.686 [id number] [facility] 2023-05-17 15:07:14 2023-05-17 15:07:14 Outpatient [facility] [id number] Henry Contreras 2023-03-02 12:27:43 2023-03-02 12:27:43 Outpatient [facility] [id number] Henry Contreras 2023-01-09 17:11:26 2023-01-09 17:11:26 Outpatient [facility] [id number] Henry Contreras 2022-11-04 14:04:00 2022-11-05 11:09:00 Emergency E PAIGEJESS [facility] [id number] [facility] 2022-09-24 12:33:00 2022-09-24 12:51:00 Emergency Heri Snow [facility] 1.2.840.114 350.1.13.10 4.2.7.2.686 [id number] [facility] 2022-09-22 00:00:00 2022-09-22 00:00:00 Nurse Triage Madhavi Mcginnis [facility] 1.2.840.114 350.1.13.10 4.2.7.2.686 [id number] [facility] 2022-09-18 10:09:00 2022-09-19 14:28:00 Inpatient EM Marly Mendenhall [facility] [id number] [facility] 2022-09-16 22:50:00 2022-09-17 01:40:00 Emergency EM Asim Jack [facility] FABI [id number] [facility] 2022-09-14 14:52:00 2022-09-15 14:00:00 Inpatient EM Cristina Forbesd [facility] TELE [id number] [facility] 2022-09-13 09:34:00 2022-09-13 13:00:00 Emergency EM Woodall, Brad [facility] FABI [id number] [facility] 2022-09-10 23:39:00 2022-09-11 11:28:00 Emergency EM Russel Sew[facility] [id number] [facility] aMrtín [facility] 2022-09-10 18:57:00 2022-09-10 20:20:00 Emergency Lisa Morfin [facility] 1..840.114 350.1.13.10 4.2.7.2.686 [id number] [facility] 2022-09-10 18:57:00 2022-09-10 20:20:00 Emergency Arron SANDRITA KEY [facility] ERT [id number] [facility] 2022-09-09 20:45:00 2022-09-09 22:46:00 Emergency X SANDRITA KEY [facility] ERT [id number] [facility] 2022-09-09 20:45:00 2022-09-09 22:46:00 Emergency Sandrita Key [facility] 1..840.114 350.1.13.10 4.2.7.2.686 [id number] [facility] 2022-09-06 18:09:00 2022-09-07 00:51:00 Emergency X TAYO BOYD [facility] ERT [id number] [facility] 2022-09-06 18:09:00 2022-09-07 00:51:00 Emergency Tayo Boyd [facility] 1..840.114 350.1.13.10 4.2.7.2.686 [id number] [facility] 2022-08-21 14:11:33 2022-08-21 14:11:[address] [facility] [id number] Henry Contreras 2022-07-17 15:03:48 2022-07-17 15:03:48 Outpatient [facility] [id number] Henry Contreras 2021-10-02 15:56:00 2021-10-02 19:00:00 Emergency X JAVED FRANK [facility] ERT [id number] [facility] 2021-10-02 15:56:00 2021-10-02 19:00:00 Emergency Javed Frank [facility] 1.2.840.114 350.1.13.10 4.2.7.2.686 [id number] [facility] 2021-05-05 13:22:00 2021-05-05 14:48:00 Emergency X DEON NUNEZ [facility] ERT [id number] [facility] 2021-05-05 13:22:00 2021-05-05 14:48:00 Emergency Deon Nunez [facility] 1.2.840.114 350.1.13.10 4.2.7.2.686 [id number] [facility] 2021-05-05 00:00:00 2021-05-05 00:00:00 Orders Only Doctor Unassigned, [place] [facility] 1.2.840.114 350.1.13.10 4.2.7.2.686 [id number] [facility] 2019-12-15 17:11:56 2019-12-15 18:04:00 Emergency Kp Gilliland [facility] 1.2.840.114 350.1.13.10 4.2.7.2.686 [id number] [facility] 2019-12-15 17:11:56 2019-12-15 18:04:00 Emergency Kp Gilliland [facility] 1.2.840.114 350.1.13.10 4.2.7.2.686 [id number] 2019-12-15 17:11:56 2019-12-15 17:11:56 Emergency X Kp GILLILAND [facility] ERT [id number] [facility] 2019-10-25 18:31:31 2019-10-25 19:21:00 Emergency Kristin Miller [facility] 1.2.840.114 350.1.13.10 4.2.7.2.686 [id number] [facility] 2019-10-25 18:31:31 2019-10-25 19:21:00 Emergency Kristin Miller [facility] 1.2.840.114 350.1.13.10 4.2.7.2.686 [id number] 2019-10-25 18:31:31 2019-10-25 18:31:31 Emergency X KRISTIN MILLER [facility] ERT [id number] [facility] 2019-08-13 13:30:00 2019-08-13 14:36:00 Emergency Floridalma Evans [facility] 1.2.840.114 350.1.13.10 4.2.7.2.686 [id number] [facility] 2019-08-13 13:30:00 2019-08-13 14:36:00 Emergency X FLORIDALMA EVANS [facility] ERT [id number] [facility] 2019-08-13 13:30:00 2019-08-13 14:36:00 Emergency Floridalma Evans [facility] 1.2.840.114 350.1.13.10 4.2.7.2.686 [id number] 2019-07-22 13:42:11 2019-07-22 19:02:00 Emergency X LISA MORFIN [facility] ERT [id number] [facility] 2019-07-22 13:42:11 2019-07-22 19:02:00 Emergency Unknown, Attending Lisa Morfin [facility] 1.2.840.114 350.1.13.10 4.2.7.2.686 [id number] [facility] 2019-07-22 13:42:11 2019-07-22 19:02:00 Emergency Unknown, Attending ShelbieLisa [facility] 1.2.840.114 350.1.13.10 4.2.7.2.686 [id number] 2019-07-13 20:17:19 2019-07-13 21:48:00 Emergency X HENRY OWEN [facility] ERT [id number] [facility] 2019-07-13 20:17:19 2019-07-13 21:48:00 Emergency Henry [facility] 1.2.840.114 350.1.13.10 4.2.7.2.686 [id number] [facility] 2019-07-10 14:26:03 2019-07-10 16:33:00 Emergency X DEBBIE PAYTON [facility] ERT [id number] [facility] 2019-07-10 14:26:03 2019-07-10 16:33:00 Emergency Debbie Payton [facility] [place] 1.2.840.114 350.1.13.10 4.2.7.2.686 [id number] [id number] [facility] 2019-07-04 19:09:02 2019-07-04 22:51:00 Emergency X LISA MORFIN [facility] ERT [id number] [facility] 2019-06-30 10:33:08 2019-06-30 13:10:00 Emergency X DEON NUNEZ [facility] ERT [id number] [facility] 2019-05-25 11:58:19 2019-05-25 15:37:00 Emergency X DEON NUNEZ [facility] ERT [id number] [facility] 2019-04-09 22:29:37 2019-04-09 23:28:00 Emergency X FLORIDALMA EVANS [facility] ERT [id number] [facility] 2019-01-21 18:38:01 2019-01-21 19:59:00 Emergency Le Ramirez [facility] [place] 1.2.840.114 350.1.13.10 4.2.7.2.686 [id number] [id number] [facility] 2019-01-21 18:38:01 2019-01-21 19:59:00 Emergency Le Ramirez [facility] [place] 1.2.840.114 350.1.13.10 4.2.7.2.686 [id number] [id number] Results Test Description Test Time Test Comments Results Result Co mments Source T3 [id number] 04:20:00* Test Item Value Reference Range Interpretation Comme nts T3UP (test code = T3UP) 40.9 % 23.5-40.5 H Thyroxine (T4) free index in Serum or [id number] 04:19:00* Test Item Value Reference Range Interpretation Comme nts Thyroxine (T4) free index in Serum or Plasma (test code = 69146-8) 1.05 ng/dL 0.78-2.19 [facility])Thyroid hormone uptake (T-uptake) in Serum or P 2023-11-24 04:18:00* Test Item Value Reference Range Interpretation Comme nts Thyroid hormone uptake (T-up take) in Serum or Plasma (test code = 53067-4) 40.9 % 23.5-40.5 H [facility])URINE DRUG [id number] 00:43:00* Test Item Value Reference Range Interpretation Comme nts AMPHET (test code = BAMP) NEGATIVE NEGATIVE This is an uncon firmed screening. Result are to be used for medical purposes (treatment) only. Not intended for non-medical purposes. Cut-off concentration for a positive result for each drug: Amphetamine - 1,000 ng/ml Barbiturate - 200 ng/ml Benzodiazepine - 200 ng/ml Cannabinoids - 50 ng/ml Cocaine - 300 ng/ml Opiates - 300 ng/ml PCP - 25 ng/ml BARBITURATES (test code = BBAR) NEGATIVE NEGATIVE BENZO (test code = BBENZ) NEGATIVE NEGATIVE CANNABS (test code = BCANN) NEGATIVE NEGATIVE COCAINE (test code = BCOC) NEGATIVE NEGATIVE OPIATES (test code = BOPI) NEGATIVE NEGATIVE PCP (test code = BMTPCP) NEGATIVE NEGATIVE Drugs of abuse 5 panel - Urine by Screen [id number] 00:40:00 NegativeNegativeNegativeNegativeNegativeNegativeNegativeBa[facility])[id number] 00:33:00* Test Item Value Reference Range Interpretation Comme nts GLUCOSE (test code = URGLU) NEGATIVE MG/DL NEG-100 BILIRUBN (test code = URBILI) NEGATIVE NEGATIVE KETONE (test code = URKET) 15 MG/DL NEGATIVE BLOOD (test code = URBLD) NEGATIVE NEGATIVE UR PH (test code = URPH) 5.5 5.0-7.5 PROTEIN (test code = URPRO) NEGATIVE MG/DL NEGATIVE NITRITES (test code = URNIT) NEGATIVE NEGATIVE UROBILINGEN (test code = URURO) 0.2 EU/DL 0.2-1.0 LEUKOCYT (test code = URLEU) SMALL NEGATIVE UA COLOR (test code = UA COLOR) YELLOW YELLOW CLARITY (test code = CLARITY) CLEAR CLEAR SP GRAV (test code = URSPGRAV) 1.013 1.000-1.025 UAMICRO (test code = UAMICRO) NO WBC (test code = URWBC) 10 /HPF 0-5 H RBC (test code = URRBC) 2 /HPF 0-2 Urinalysis panel - Urine by [id number] 00:33:00* Test Item Value Reference Range Interpretation Comme nts Ketones [Presence] in Urine (test code = 47995-7) 15 MG/DL NEG N pH of Urine (test code = 2756-5) 5.5 1 5.0-7.5 N Urobilinogen [Presence] in U rine (test code = 97694-6) 0.2 EU/DL 0.2-1.0 N Specific gravity of Urine (t est code = 2965-2) 1.013 1 1.0-1.025 N Leukocytes [Presence] in Uri ne sediment by Light microscopy (test code = 93050-5) 10 /HPF 0.0-5.0 H Erythrocytes [Presence] in U rine sediment by Light microscopy (test code = 22981-8) 2 /HPF 0.0-2.0 N [facility])VITAMIN [id number] 22:47:00* Test Item Value Reference Range Interpretation Comme nts B12 (test code = B12) 880 pg/mL 239-931 [id number] 22:47:00* Test Item Value Reference Range Interpretation Comme nts FOLATE (test code = FOLATE) 8.9 ng/mL 2.76-20.0 THYROID STIMULATION [id number] 22:47:00* Test Item Value Reference Range Interpretation Comme nts TSH (test code = TSH) 6.62 UIU/ML 0.465-4.68 H Cobalamin (Vitamin B12) [Mass/volume] in [id number] 22:47:00* Test Item Value Reference Range Interpretation Comme nts Cobalamin (Vitamin B12) [Mass/volume] in Serum or Plasma (test code = 2132-9) 880 pg/mL 239.0-931.0 N [facility])Folate [Mass/volume] in Serum or [id number] 22:47:00* Test Item Value Reference Range Interpretation Comme nts Folate [Mass/volume] in Seru m or Plasma (test code = 2284-8) 8.9 ng/mL 2.76-20.0 [facility])Thyrotropin in Serum or [id number] 22:47:00* Test Item Value Reference Range Interpretation Comme nts Thyrotropin in Serum or Plas ma (test code = 09813-9) 6.62 UIU/ML 0.465-4.68 H [facility])ER SCREEN FOR HIV 1/ 22:46:00* Test Item Value Reference Range Interpretation Comme nts HIV 1/2 AB (test code = SCRN HIV) NEGATIVE NEGATIVE This test is us ed for SCREENING purposes only. All reactive results are prelimenary and confirmation results will follow. HIV 1+2 Ab [Units/volume] in [id number] 22:45:00[facility])HEPATITIS C ANTIBODY [id number] 22:28:00* Test Item Value Reference Range Interpretation Comme nts SCRN HCV (test code = SCRN HCV) NEGATIVE NEGATIVE Hepatitis C Anti body test is for screening purposes only. All reactives will be confirmed by additional testing. Hepatitis C virus Ab [Presence] in [id number] 22:27:00NegativeMem[facility] CenterB-HCG QUAL (KIT)2023-11-23 22:01:00* Test Item Value Reference Range Interpretation Comme [facility] HCGQUAL (test code = HCGQUAL) NEGATIVE NEGATIVE URINE: NEGATIVE = < 20 mIU/ML; POSITIVE= >/= 20 mIU/ML SERUM: NEGATIVE = < 10 mIU/ML; POSITIVE= >/= 10 mIU/ML SOURCE (test code = SOURCE) SERUM HCG INTERNAL POSITIVE CNTRL (test code = HCGIPC) PASS PASS HCG LOT # (test code = UHCGLOT) [id number] HCG EXPIRATION DATE (test code = UHCGEXP) Choriogonadotropin.beta subunit ( [id number] 22:01:00* Test Item Value Reference Range Interpretation Comme [facility] Specimen source [Identifier] of Body fluid (test code = 99702-6) SERUM N Reagent Lot number (test cod e = 43421-7) 1 N [facility])CT HEAD W/O [id number] 22:00:00 [facility] 1975 Sex: F[address] [id number] IMAGING REPORTPatient Name: ROBERT, CONCEPTIONDate of Service: [id number]: 48 Sex: F Order #: [id number] [facility] 1975 [facility] Number: [id number] Record Number: [id number] Hospital Number: [id number] Physician: LAWRENCE MEJIASOrdering Physician: LAWRENCE MEJIASPROCEDURE: KANAHEAD W/O CONTINDICATIONS: dx: psych evalorder sts: r/o rt nephrolithiasispt here for psychevalpsv: mbbExam: CT Brain without contrastComparison: NoneClinical history: Psych eval.Findings:No acute intracranial hemorrhage.Cerebral volume loss.No abnormal extra-axial fluid collections.No intracranial massNo midline shift.No skull fracture.Impression:1. No acute intracranial hemorrhage.2. Cerebral volume loss.This document has been electronically signed by: Mala Adams MD on11/23/2023 21:59:03Legally authenticated by ANGIE PHAM 2023-11-23 21:59:03CT Head and Orbit - bilateral WO [id number] 21:59:03 ORDER 1400: CT HEAD W/O CONT (LOINC: 59119-4)ORDER DATE: November 24, 2023 12:50:00 AM [facility] ([place])CT ABDOMEN/PELVIS [id number] 21:54:00 [facility] : 1975 Sex: F[address] [id number] IMAGING REPORTPatient Name: ROBERT, CONCEPTIONDate of Service: [id number]: 48 Sex: F Order #: [id number] Room: ERSDOB: 1975 X-Ray Number: [id number] Record Number: [id number] Hospital Number: [id number] Physician: LAWRENCE MEJIASOrdering Physician: LAWRENCE MEJIASPROCEDURE: CT ABDOMEN/PELVIS WITHOUTINDICATIONS: dx: psych evalorder sts: r/o rt nephrolithiasispt here for psychevalpsv: mbbCT abdomen and pelvis without contrastComparison: NoneFindings:There are ground-glass infiltrates in the left lingular lobe with discoidatelectasis.The upper abdomen reveals normal liver, s pleen, adrenal glands, pancreasand major vessels. No retroperitoneal or other lymphadenopathy seen.Thereare no radiopaque renal calculi. There are radiopaque calculi noted in thedependent part of the gallbladder. No evidence for acute cholecystitis.The lower abdomen including ileocecal region werenormal. Post ilealappendix was unremarkable.In the pelvis, there are no acute findings.No acute bony findings are present. There are degenerative changes inthoracolumbar spine.IMPRESSION:No acute findings in the abdomen or pelvis.Cholecystolithiasis, without evidence for acute cholecystitis. A normalupper abdominal CT otherwise.No nephrolithiasisNormal lower abdomen including appendix.Unremarkable pelvis.This document has been electronically signed by: Linda Del Rio MD on11/23/2023 21:53:03Legally authenticated by YUNIOR MCKEON 2023-11-23 21:53:03 CT Abdomen and [id number] 21:53:03ORDER 1500: CT ABDOMEN/PELVIS WITHOUT (LOINC: 41645-9)ORDER DATE: November 24, 2023 12:50:00 AM [facility]2024-06-01 21:31:00* Test Item Value Reference Range Interpretation Comme nts SODIUM (test code = NA) 137 MMOL/L 137-145 K+ (test code = KSERUM) 4.2 MMOL/L 3.5-5.1 CHLORIDE (test code = CL) 100 MMOL/L 98-107 CO2 (test code = CO2) 24 MMOL/L 22-30 BUN (test code = BUN) 16 MG/DL 7-17 CREA (test code = CREA) 0.6 MG/DL 0.7-1.2 L GLUCOSE (test code = GLUCOSE) 80 MG/DL 70-99 Fasting glucos e normal <100 MG/DL- [employer] recommendation CALCIUM (test code = CABLOOD) 10.3 MG/DL 8.4-10.2 H TOTPROT (test code = TOTPROT) 9.9 G/DL 6.3-8.2 H ALBUMIN (test code = ALBSERUM) 4.7 G/DL 3.5-5.0 BILITOT (test code = BILITOT) 0.8 MG/DL 0.2-1.3 AST (test code = AST) 34 U/L 15-46 PHOSALK (test code = PHOSALK) 97 U/L 38-126 ALTV (test code = ALTV) 14 U/L 13-69 GFR (test code = GFR) 113.0 mL/min/1.73m2 See_Comment A GFR of >90 mL/min/1.73m2 is considered normal. The GFR calculation on patients over 70 years of age is not validated by the infrastructure tech and may not represent the patients true renal function. [Automated message] The system which generated this result transmitted reference range: 59-. The reference range was not used to interpret this result as normal/abnormal. CALCULATED ANION GAP (test code = ANIONGAP) 13 mmol/L 4-12 H "ANION GAP CALCULATION" "This calculation does not include K+. In renal failure patients, K+ should be used in the calculation". CREATINE [id number] 21:31:00* Test Item Value Reference Range Interpretation Comme nts CK (test code = CK) 115 U/L 30-135 BLOOD ALCOHOL (ETOH)2023-11-23 21:31:00* Test Item Value Reference Range Interpretation Comme nts ALCOHOL BLOOD LEVEL (test code = ALC BLD) <10 MG/DL 0-10 Results ar e to be used for medical purposes (treatment) only. Not intended for non medical purposes. Ethanol [Mass/volume] in [id number] 21:30:00* Test Item Value Reference Range Interpretation Comme nts Ethanol [Mass/volume] in Blo od (test code = 5640-8) <10 0.0-10.0 [facility] ([place])Creatine kinase isoenzymes [interpretation] in 2023-11-23 21:30:00* Test Item Value Reference Range Interpretation Comme nts Creatine kinase isoenzymes [interpretation] in Serum or Plasma Narrative (test code = 55953-0) 115 U/L 30.0-135.0 N [facility])Comprehensive metabolic 2000 panel - Serum or P 2023-11-23 21:27:00* Test Item Value Reference Range Interpretation Comme nts Sodium [Moles/volume] in Blood (test code = 2947-0) 137 MMOL/L 137.0-145.0 N Potassium [Moles/volume] in Blood (test code = 6298-4) 4.2 MMOL/L 3.5-5.1 N Chloride [Moles/volume] in Blood (test code = 2069-3) 100 MMOL/L 98.0-107.0 N Carbon dioxide, total [Moles/volume] in Blood (test code = 29288-6) 24 MMOL/L 22.0-30.0 N Urea nitrogen [Mass/volume] in Serum or Plasma (test code = 3094-0) 16 MG/DL 7.0-17.0 N Creatinine [Mass/volume] in Blood (test code = 25271-0) 0.6 MG/DL 0.7-1.2 L Glucose [Mass/volume] in Blood (test code = 2339-0) 80 MG/DL 70.0-99.0 N Calcium [Mass/volume] in Serum or Plasma (test code = 73756-4) 10.3 MG/DL 8.4-10.2 H Protein [Mass/volume] in Serum or Plasma (test code = 2885-2) 9.9 G/DL 6.3-8.2 H Albumin [Presence] in Serum or Plasma (test code = 42629-6) 4.7 G/DL 3.5-5.0 N Bilirubin direct and total panel [Mass/volume] - Serum or Plasma (test code = 52717-3) 0.8 MG/DL 0.2-1.3 N Aspartate aminotransferase [Enzymatic activity/volume] in Serum or Plasma (test code = 1920-8) 34 U/L 15.0-46.0 N Alkaline phosphatase [Enzymatic activity/volume] in Serum or Plasma (test code = 6768-6) 97 U/L 38.0-126.0 N Alanine aminotransferase [Enzymatic activity/volume] in Serum or Plasma (test code = 1742-6) 14 U/L 13.0-69.0 N Estimated or measured glomerular filtration rate less than 50 percent [- Reported] (test code = 35035-4) 113.0 mL/min/1.73m2 N Anion gap in Serum or Plasma (test code = 95384-4) 13 mmol/L 4.0-12.0 H [facility] [id number] 21:15:00* Test Item Value Reference Range Interpretation Comme nts WBC (test code = WBC) 4.5 K/UL 3.5-10.9 RBC (test code = RBC) 4.91 M/UL 4.0-5.0 HGB (test code = HGB) 13.8 G/DL 11.5-15.5 HCT (test code = HCT) 42.4 % 34-46 MCV (test code = MCV) 86.4 FL 80-98 MCH (test code = MCH) 28.1 PG 28-32 MCHC (test code = MCHC) 32.5 G/DL 32.5-36.5 RDW (test code = RDW) 14.9 % 11.5-14.5 H PLT (test code = PLT) 124 K/UL 150-450 L MPV (test code = MPV) 10.0 FL 7.4-10.4 MANDIFF (test code = MANDIFF) NO SCAN (test code = SCAN) NO NEUT% (test code = NEUT%) 53.3 % 40-75 LYMPH% (test code = LYMPH%) 33.9 % 24-44 MONO% (test code = MONO%) 10.0 % 0-13 EOS% (test code = EOS%) 2.2 % 0-4 BASO % (test code = BASO%) 0.4 % 0.0-2.0 IG (test code = IG) 0 % 0-1 IG% (test code = IG%) 0.2 % 0-1 IG% = Metamyeloc ytes, Myelocytes, and Promyelocytes. (Immature neutrophils not including "bands".) > 3% IG indicates risk of sepsis NRBC% (test code = NRBC%) 0 /100 WBC ABS NEUT (test code = NEUT) 2.4 K/UL 1.2-7.2 CBC W Auto Differential panel - [id number] 21:15:00* Test Item Value Reference Range Interpretation Comme nts Leukocytes other [Identifier ] in Blood by Automated count (test code = 86432-2) 4.5 K/UL 3.5-10.9 N Erythrocytes [#/volume] in B lood (test code = 18266-1) 4.91 M/UL 4.0-5.0 N Hemoglobin A/Hemoglobin.tota l in Blood (test code = 4546-8) 13.8 G/DL 11.5-15.5 N Hematocrit [Volume Fraction] of Blood (test code = 24255-9) 42.4 % 34.0-46.0 N Erythrocyte mean corpuscular volume [Entitic volume] (test code = 12536-3) 86.4 FL 80.0-98.0 N Erythrocyte mean corpuscular hemoglobin [Entitic mass] (test code = 56065-9) 28.1 PG 28.0-32.0 N Erythrocyte mean corpuscular hemoglobin concentration [Mass/volume] (test code = 86276-3) 32.5 G/DL 32.5-36.5 N Erythrocyte distribution wid th [Ratio] (test code = 31228-5) 14.9 % 11.5-14.5 H Platelets panel - Blood by Automated count (test code = 67707-8) 124 K/UL 150.0-450.0 L Platelet mean volume [Entiti c volume] in Blood by Automated count (test code = 34207-4) 10.0 FL 7.4-10.4 N Neutrophils.segmented/100 leukocytes in Blood (test code = 45920-4) 53.3 % 40.0-75.0 N Lymphocytes Variant/100 leuk ocytes in Blood (test code = 85679-8) 33.9 % 24.0-44.0 N Lymphocytes+Monocytes/100 leukocytes in Blood (test code = 4662-3) 10.0 % 0.0-13.0 N Eosinophils [#/volume] in Bl ood (test code = 13074-9) 2.2 % 0.0-4.0 N Basophils [#/volume] in Bloo d (test code = 94957-4) 0.4 % 0.0-2.0 N Immature granulocytes/100 leukocytes in Blood (test code = 93123-7) 0.2 % 0.0-1.0 N Nucleated erythrocytes [#/vo lume] in Blood (test code = 97234-3) 0 /100 WBC N Neutrophils [#/volume] in Bl ood (test code = 36761-2) 2.4 K/UL 1.2-7.2 N [facility] ([place])PAP TEST, THINPREP, [id number] 16:02:24* Test Item Value Reference Range Interpretation Comme nts SOURCE: (test code = 8001) Cervical/Endoce rvical SLIDES: (test code = 8011) 1 LMP: (test code = 8021) SEE NOTE POST MENOPAUSAL SPECIMEN ADEQUACY: (test code = 74746) (NOTE) Satisfactory for evaluation. Endocervical cells/transformation zone component present. INTERPRETATION: (test code = 54151) NILM/NO EPITH. ABNORMALITY;SEE BELOW --- - NEGATIVE FOR INTRAEPITHELIAL LESION OR MALIGNANCY (NILM) ---- FISH NET MAKER : (test code = 8101) Jami Smalls LOCATION: (test code = 95550) (NOTE) Specimens proces sed and interpreted at [facility], [address] [place] [address], , CLIA: [id number] CPT: (test code = 8140) (NOTE) 09396 UNLESS OTH ERWISE INDICATED, COMPUTER AIDED AND FISH NET MAKER SCREENING PERFORMED. The Pap test is a screening test with an inherent, but low probability of error. Your patient should be reminded to consult you immediately if she experiences any suspicious signs or symptoms, regardless of her Pap test result. An alternate report format containing images or consolidated prior Pap history is available as applicable. HPV HIGH RISK WITH GENOTYPE, [id number] 15:53:52* Test Item Value Reference Range Interpretation Comme nts HPV HIGH RISK INTERP (test code = 56830) NEGATIVE NEGATIVE HPV 16 (test code = 45137) NEGATIVE HPV 18 (test code = 53934) NEGATIVE HPV, HR, OTHER GENOTYPES (test code = 17058) NEGATIVE Testing methodol ogy is real-time PCR utilizing hydrolysis probes with the [employer] system. The test individually detects genotypes 16 and 18, as well as the other 12 high risk types (31,33,35,39,45,51,52,56 ,58,59,66,68). The expected result is negative. A negative result does not rule out the presence of HPV not included in the genotype set, a low level of infection or specimen sampling error. UNLESS OTHERWISE INDICATED, ALL TESTING PERFORMED AT [facility] [address] [place] [address] CASH MANAGEMENT OFFICER: JATIN FELIPE M.D. [place] NUMBER [id number] [facility] [place]. [id number] HPV HIGH RISK WITH GENOTYPE, [id number] 00:00:00* Test Item Value Reference Range Interpretation Comme nts HPV HIGH RISK INTERP (test c ode = 69402) NEGATIVE HPV 16 (test code = 03837) NEGATIVE HPV 18 (test code = 69484) NEGATIVE HPV, HR, OTHER GENOTYPES (te st code = 97153) NEGATIVE PDFE (test code = PDFReport) PDF Henry ContrerasPAP TEST, THINPREP, [id number] 00:00:00* Test Item Value Reference Range Interpretation Comme nts SOURCE: (test code = 8001) Cervical/Endocervical SLIDES: (test code = 8011) 1 LMP: (test code = 8021) SEE NOTE SPECIMEN ADEQUACY: (test code = 26346) (NOTE) INTERPRETATION: (test code = 00702) NILM/NO EPITH. ABNORMALITY;SEE BELOW FISH NET MAKER: (test code = 8101) Jami Smalls LOCATION: (test code = 83352) (NOTE) CPT: (test code = 8140) (NOTE) Henry Quiles AustinHPV HIGH RISK WITH GENOTYPE, [id number] 00:00:00* Test Item Value Reference Range Interpretation Comme nts HPV HIGH RISK INTERP (test c ode = 58342) NEGATIVE HPV 16 (test code = 68763) NEGATIVE HPV 18 (test code = 25855) NEGATIVE HPV, HR, OTHER GENOTYPES (te st code = 05612) NEGATIVE PDFE (test code = PDFReport) PDF Henry Quiles AustinPAP TEST, THINPREP, [id number] 00:00:00* Test Item Value Reference Range Interpretation Comme nts SOURCE: (test code = 8001) Cervical/Endocervical SLIDES: (test code = 8011) 1 LMP: (test code = 8021) SEE NOTE SPECIMEN ADEQUACY: (test code = 47539) (NOTE) INTERPRETATION: (test code = 05594) NILM/NO EPITH. ABNORMALITY;SEE BELOW FISH NET MAKER: (test code = 8101) Jami Smalls LOCATION: (test code = 37871) (NOTE) CPT: (test code = 8140) (NOTE) Henry Quiles AustinPAP TEST, THINPREP, IMAGED [ADDED]2023-10-10 00:00:00* Test Item Value Reference Range Interpretation Comme nts SOURCE: (test code = 8001) Unspecified SLIDES: (test code = 8011) 2 LMP: (test code = 8021) NOT GIVEN SPECIMEN ADEQUACY: (test code = 19193) (NOTE) INTERPRETATION: (test code = 12579) UNSATISFACTORY; SEE BELOW OTHER COMMENTS: (test code = 8081) (NOTE) FISH NET MAKER: (test code = 8101) Jose Bustillos TECHNOLOGIST: (test code = 8111) Jason Whitman,[facility](AS[facility]),[facility] LOCATION: (test code = 87060) (NOTE) CPT: (test code = 8140) (NOTE) Henry Quiles AustinHPV HIGH RISK IF ASC/LSIL, THINPREP [ADDED]2023-10-10 00:00:00* Test Item Value Reference Range Interpretation Comme nts HPV HIGH RISK IF ASC/LSIL, THINPREP (test code = 25354) CRITERIA NOT MET Henry Quilse AustinPAP TEST, THINPREP, IMAGED [ADDED]2023-10-10 00:00:00* Test Item Value Reference Range Interpretation Comme nts SOURCE: (test code = 8001) Unspecified SLIDES: (test code = 8011) 2 LMP: (test code = 8021) NOT GIVEN SPECIMEN ADEQUACY: (test code = 74580) (NOTE) INTERPRETATION: (test code = 40331) UNSATISFACTORY; SEE BELOW OTHER COMMENTS: (test code = 8081) (NOTE) FISH NET MAKER: (test code = 8101) Jose Bustillos QC TECHNOLOGIST: (test code = 8111) Jason Whitman,[facility](ASCP),[facility] LOCATION: (test code = 25342) (NOTE) CPT: (test code = 8140) (NOTE) Henry Quiles AustinHPV HIGH RISK IF ASC/LSIL, THINPREP [ADDED]2023-10-10 00:00:00* Test Item Value Reference Range Interpretation Comme nts HPV HIGH RISK IF ASC/LSIL, THINPREP (test code = 74624) CRITERIA NOT MET Henry Quiles AustinGONORRHEA, NAAT, THINPREP [ADDED]2023-10-08 00:00:00* Test Item Value Reference Range Interpretation Comme nts GONORRHEA, NAAT, THINPREP (t est code = 09304) NEGATIVE Henry Quiles AustinCHLAMYDIA, NAAT, THINPREP [ADDED]2023-10-08 00:00:00* Test Item Value Reference Range Interpretation Comme nts CHLAMYDIA, NAAT, THINPREP (t est code = 52503) NEGATIVE PDFE (test code = PDFReport) PDF Henry Quiles AustinGONORRHEA, NAAT, THINPREP [ADDED]2023-10-08 00:00:00* Test Item Value Reference Range Interpretation Comme nts GONORRHEA, NAAT, THINPREP (t est code = 33528) NEGATIVE Henry Quiles AustinCHLAMYDIA, NAAT, THINPREP [ADDED]2023-10-08 00:00:00* Test Item Value Reference Range Interpretation Comme nts CHLAMYDIA, NAAT, THINPREP (t est code = 97201) NEGATIVE PDFE (test code = PDFReport) PDF Henry Quiles Gaby, THIRD [id number] 08:14:44* Test Item Value Reference Range Interpretation Comme nts TSH, THIRD GENERATION (test code = 2821) 5.200 UIU/ML 0.400-4.100 H UNLESS OTHERWISE INDICATED, ALL TESTING PERFORMED AT [facility] [address] [place] [address] CASH MANAGEMENT OFFICER: JATIN FELIPE M.D. CLIA NUMBER [id number] [facility] [place]. [id number] 00:00:00* Test Item Value Reference Range Interpretation Comme nts TSH, THIRD GENERATION (test code = 2821) 5.200 UIU/ML Henry [id number] 00:00:00* Test Item Value Reference Range Interpretation Comme nts TSH, THIRD GENERATION (test code = 2821) 5.200 UIU/ML Henry Griffin, THIRD [id number] 23:53:27* Test Item Value Reference Range Interpretation Comme nts TSH, THIRD GENERATION (test code = 2821) 11.100 UIU/ML 0.400-4.100 H COMPREHENSIVE METABOLIC [id number] 23:46:03* Test Item Value Reference Range Interpretation Comme nts GLUCOSE (test code = 2217) 97 MG/DL 70-99 BUN (test code = 2208) 7 MG/DL 6-20 CREATININE (test code = 2214) 0.61 MG/DL 0.60-1.30 eGFR (2020 CKD-EPI) (test code = 74415) 110 ML/MIN/1.73 >60 CALC BUN/CREAT (test code [...] H CALC A/G RATIO (test code = 223) 0.9 RATIO 1.0-2.6 L BILIRUBIN, TOTAL (test code = 2207) 0.2 MG/DL <=1.2 ALKALINE PHOSPHATASE (test code = 2203) 70 U/L 40-125 AST (test code = 2218) 20 U/L 9-40 ALT (test code = 2219) 13 U/L 5-40 CBC W/AUTO DIFF WITH [id number] 08:48:44* Test Item Value Reference Range Interpretation [...] 0.00-0.10 ABS NUCLEATED RBCS (test code = 61341) 0.00 K/UL 0.00-0.11 UNLESS OTHER MONTOYA INDICATED, ALL TESTING PERFORMED AT [facility] [address] [place] [address] CASH MANAGEMENT OFFICER: JATIN FELIPE M.D. CLIA NUMBER [id number] [facility] [place]. [id number] 00:00:00* Test Item Value Reference Range Interpretation Comme nts TSH, THIRD GENERATION (test code = 2821) 11.100 UIU/ML Henry Quiles BenCBC W/AUTO [id number] 00:00:00* Test Item Value Reference Range Interpretation Comme nts WBC (test code = 1001) 4.8 K/UL RBC (test code = 1002) 4.27 M/UL HEMOGLOBIN (test code = 1003) 12.7 G/DL HEMATOCRIT (test code = 1004) 37.6 % MCV (test code = 1005) 88.1 fL MCH (test code = 1006) 29.7 PG MCHC (test code = 1007) 33.8 G/DL RDW (test code = 1038) 14.8 % NEUTROPHILS (test code = 1008) 49.5 % LYMPHOCYTES (test code = 1010) 33.3 % MONOCYTES (test code = 1011) 8.4 % EOSINOPHILS (test code = 1012) 8.2 % BASOPHILS (test code = 1013) 0.4 % IMMATURE GRANULOCYTES (test code = 1036) 0.2 % NUCLEATED RBCS (test code = 1065) 0.0 /100WBC'S PLATELET COUNT (test code = 1015) 119 K/UL ABSOLUTE NEUTROPHILS (test c ode = 1066) 2.37 K/UL ABSOLUTE LYMPHOCYTES (test c ode = 1067) 1.59 K/UL ABSOLUTE MONOCYTES (test cod e = 1068) 0.40 K/UL ABSOLUTE EOSINOPHILS (test c ode = 1040) 0.39 K/UL ABSOLUTE BASOPHILS (test cod e = 1069) 0.02 K/UL ABS IMMATURE GRANULOCYTES (t est code = 1020) 0.01 K/UL ABS NUCLEATED RBCS (test cod e = 91781) 0.00 K/UL Henry ContrerasCOMPREHENSIVE METABOLIC [id number] 00:00:00* Test Item Value Reference Range Interpretation Comme nts GLUCOSE (test code = 2217) 97 MG/DL BUN (test code = 2208) 7 MG/DL CREATININE (test code = 2214) 0.61 MG/DL eGFR (2020 CKD-EPI) (test code = 54552) 110 ML/MIN/1.73 CALC BUN/CREAT (test code = 2235) 11 RATIO SODIUM (test code = 2231) 132 MEQ/L POTASSIUM (test code = 2228) 4.1 MEQ/L CHLORIDE (test code = 2215) 95 MEQ/L CARBON DIOXIDE (test code = 2206) 26 MEQ/L CALCIUM (test code = 2209) 9.5 MG/DL PROTEIN, TOTAL (test code = 2229) 7.9 G/DL ALBUMIN (test code = 2201) 3.8 G/DL CALC GLOBULIN (test code = 2240) 4.1 G/DL CALC A/G RATIO (test code = 2234) 0.9 RATIO BILIRUBIN, TOTAL (test code = 2207) 0.2 MG/DL ALKALINE PHOSPHATASE (test code = 2204) 70 U/L AST (test code = 2218) 20 U/L ALT (test code = 2219) 13 U/L Henry [id number] 00:00:00* Test Item Value Reference Range Interpretation Comme nts TSH, THIRD GENERATION (test code = 2821) 11.100 UIU/ML Henry ContrerasCBC W/AUTO [id number] 00:00:00* Test Item Value Reference Range Interpretation Comme nts WBC (test code = 1001) 4.8 K/UL RBC (test code = 1002) 4.27 M/UL HEMOGLOBIN (test code = 1003) 12.7 G/DL HEMATOCRIT (test code = 1004) 37.6 % MCV (test code = 1005) 88.1 fL MCH (test code = 1006) 29.7 PG MCHC (test code = 1007) 33.8 G/DL RDW (test code = 1038) 14.8 % NEUTROPHILS (test code = 1008) 49.5 % LYMPHOCYTES (test code = 1010) 33.3 % MONOCYTES (test code = 1011) 8.4 % EOSINOPHILS (test code = 1012) 8.2 % BASOPHILS (test code = 1013) 0.4 % IMMATURE GRANULOCYTES (test code = 1036) 0.2 % NUCLEATED RBCS (test code = 1065) 0.0 /100WBC'S PLATELET COUNT (test code = 1015) 119 K/UL ABSOLUTE NEUTROPHILS (test c ode = 1066) 2.37 K/UL ABSOLUTE LYMPHOCYTES (test c ode = 1067) 1.59 K/UL ABSOLUTE MONOCYTES (test cod e = 1068) 0.40 K/UL ABSOLUTE EOSINOPHILS (test c ode = 1040) 0.39 K/UL ABSOLUTE BASOPHILS (test cod e = 1069) 0.02 K/UL ABS IMMATURE GRANULOCYTES (t est code = 1020) 0.01 K/UL ABS NUCLEATED RBCS (test cod e = 77319) 0.00 K/UL Henry ContrerasCOMPREHENSIVE METABOLIC [id number] 00:00:00* Test Item Value Reference Range Interpretation Comme nts GLUCOSE (test code = 2217) 97 MG/DL BUN (test code = 2208) 7 MG/DL CREATININE (test code = 2214) 0.61 MG/DL eGFR (2020 CKD-EPI) (test code = 06808) 110 ML/MIN/1.73 CALC BUN/CREAT (test code = 2235) 11 RATIO SODIUM (test code = 2231) 132 MEQ/L POTASSIUM (test code = 2228) 4.1 MEQ/L CHLORIDE (test code = 2215) 95 MEQ/L CARBON DIOXIDE (test code = 2206) 26 MEQ/L CALCIUM (test code = 2209) 9.5 MG/DL PROTEIN, TOTAL (test code = 2229) 7.9 G/DL ALBUMIN (test code = 2201) 3.8 G/DL CALC GLOBULIN (test code = 2240) 4.1 G/DL CALC A/G RATIO (test code = 2234) 0.9 RATIO BILIRUBIN, TOTAL (test code = 2207) 0.2 MG/DL ALKALINE PHOSPHATASE (test code = 2204) 70 U/L AST (test code = 2218) 20 U/L ALT (test code = 2219) 13 U/L Henry [id number] 01:13:06* Test Item Value Reference Range Interpretation Comme nts TRANSFERRIN (test code = 4936) 315 MG/DL 200-360 UNLESS OTHERWISE INDICATED, ALL TESTING PERFORMED AT [facility] [address] [place] [address] CASH MANAGEMENT OFFICER: JATIN FELIPE M.D. CLIA NUMBER [id number] [facility] [place] [place]. [id number] LIPID [id number] 01:12:48* Test Item Value Reference Range Interpretation [...] SPECIMENS. FOR MOREINFORMATION, SEE CLIENT ANNOUNCEMENT AT [email or web address] RISK RATIO LDL/HDL (test code = 2238) 1.34 RATIO <3.22 COMPREHENSIVE METABOLIC [id number] 01:12:48* Test Item Value Reference Range Interpretation Comme nts GLUCOSE (test code = 2217) 92 MG/DL 70-99 BUN (test code = 2208) 15 MG/DL 6-20 CREATININE (test code = 2214) 0.65 MG/DL 0.60-1.30 eGFR (2020 CKD-EPI) (test code = 42224) 108 ML/MIN/1.73 >60 CALC BUN/CREAT (test code = 2235) 23 RATIO 6-28 SODIUM (test code = 2231) 135 MEQ/L 133-146 POTASSIUM (test code = 2228) 4.2 MEQ/L 3.5-5.4 CHLORIDE (test code = 2215) 99 MEQ/L 95-107 CARBON DIOXIDE (test code = 2206) 24 MEQ/L 19-31 CALCIUM (test code = 220) 9.8 MG/DL 8.5-10.5 PROTEIN, TOTAL (test code = 222) 7.8 G/DL 6.1-8.3 ALBUMIN (test code = 2200) 3.9 G/DL 3.5-5.2 CALC GLOBULIN (test code = 0) 3.9 G/DL 1.9-3.7 H CALC A/G RATIO (test code = 2234) 1.0 RATIO 1.0-2.6 BILIRUBIN, TOTAL (test code = 7) <0.2 MG/DL See_Comment [Automated me ssage] The system which generated this result transmitted reference range: <=1.2. The reference range was not used to interpret this result as normal/abnormal. ALKALINE PHOSPHATASE (test code = 2203) 73 U/L 40-125 AST (test code = 2217) 15 U/L 9-40 ALT (test code = 2218) 7 U/L 5-40 IRON BINDING CAPACITY AND IRON AND % [id number] 01:12:48* Test Item Value Reference Range Interpretation Comme nts IRON, SERUM (test code = 2221) 51 UG/DL 37-145 UNSATURATED IBC (test code = 15379) 356 UG/DL 112-347 H CALC TOTAL IBC (test code = 2076) 407 UG/DL 250-450 CALC % IRON SAT (test code = 2078) 13 % 20-50 L [id number] 00:59:24* Test Item Value Reference Range Interpretation Comme nts FERRITIN (test code = 2074) 20 NG/ML 13-200 LIPID [id number] 00:00:00* Test Item Value Reference Range Interpretation Comme nts CHOLESTEROL (test code = 0) 191 MG/DL TRIGLYCERIDES (test code = 2) 89 MG/DL HDL CHOLESTEROL (test code = 0) 74 MG/DL CALC LDL CHOL (test code = 7) 99 MG/DL RISK RATIO LDL/HDL (test cod e = 2238) 1.34 RATIO Henry F AustinCOMPREHENSIVE METABOLIC [id number] 00:00:00* Test Item Value Reference Range Interpretation Comme nts GLUCOSE (test code = 7) 92 MG/DL BUN (test code = 8) 15 MG/DL CREATININE (test code = 2214) 0.65 MG/DL eGFR (2020 CKD-EPI) (test code = 57308) 108 ML/MIN/1.73 CALC BUN/CREAT (test code = 2235) 23 RATIO SODIUM (test code = 2231) 135 MEQ/L POTASSIUM (test code = 2228) 4.2 MEQ/L CHLORIDE (test code = 2215) 99 MEQ/L CARBON DIOXIDE (test code = 2206) 24 MEQ/L CALCIUM (test code = 9) 9.8 MG/DL PROTEIN, TOTAL (test code = 2228) 7.8 G/DL ALBUMIN (test code = 1) 3.9 G/DL CALC GLOBULIN (test code = 2240) 3.9 G/DL CALC A/G RATIO (test code = 2234) 1.0 RATIO BILIRUBIN, TOTAL (test code = 2206) <0.2 MG/DL ALKALINE PHOSPHATASE (test code = 2203) 73 U/L AST (test code = 2217) 15 U/L ALT (test code = 2218) 7 U/L Henry ContrerasIRON BINDING CAPACITY AND IRON AND % [id number] 00:00:00* Test Item Value Reference Range Interpretation Comme nts IRON, SERUM (test code = 2221) 51 UG/DL UNSATURATED IBC (test code = 89369) 356 UG/DL CALC TOTAL IBC (test code = 2076) 407 UG/DL CALC % IRON SAT (test code = 2078) 13 % Henry [id number] 00:00:00* Test Item Value Reference Range Interpretation Comme nts FERRITIN (test code = 2074) 20 NG/ML Henry [id number] 00:00:00* Test Item Value Reference Range Interpretation Comme nts TRANSFERRIN (test code = 4936) 315 MG/DL Henry ContrerasLIPID [id number] 00:00:00* Test Item Value Reference Range Interpretation Comme nts CHOLESTEROL (test code = 0) 191 MG/DL TRIGLYCERIDES (test code = 2232) 89 MG/DL HDL CHOLESTEROL (test code = 2220) 74 MG/DL CALC LDL CHOL (test code = 7) 99 MG/DL RISK RATIO LDL/HDL (test cod e = 2238) 1.34 RATIO Henry Quiles BenCOMPREHENSIVE METABOLIC [id number] 00:00:00* Test Item Value Reference Range Interpretation Comme nts GLUCOSE (test code = 2216) 92 MG/DL BUN (test code = 2207) 15 MG/DL CREATININE (test code = 2213) 0.65 MG/DL eGFR (2020 CKD-EPI) (test code = ) 108 ML/MIN/1.73 CALC BUN/CREAT (test code = 2234) 23 RATIO SODIUM (test code = 2230) 135 MEQ/L POTASSIUM (test code = 8) 4.2 MEQ/L CHLORIDE (test code = 2214) 99 MEQ/L CARBON DIOXIDE (test code = 2205) 24 MEQ/L CALCIUM (test code = 2208) 9.8 MG/DL PROTEIN, TOTAL (test code = 2228) 7.8 G/DL ALBUMIN (test code = 2200) 3.9 G/DL CALC GLOBULIN (test code = 2239) 3.9 G/DL CALC A/G RATIO (test code = 2233) 1.0 RATIO BILIRUBIN, TOTAL (test code = 2206) <0.2 MG/DL ALKALINE PHOSPHATASE (test code = 2203) 73 U/L AST (test code = 2217) 15 U/L ALT (test code = 2218) 7 U/L Henry ContrerasIRON BINDING CAPACITY AND IRON AND % [id number] 00:00:00* Test Item Value Reference Range Interpretation Comme nts IRON, SERUM (test code = 222) 51 UG/DL UNSATURATED IBC (test code = 03028) 356 UG/DL CALC TOTAL IBC (test code = 2076) 407 UG/DL CALC % IRON SAT (test code = 2078) 13 % Henry [id number] 00:00:00* Test Item Value Reference Range Interpretation Comme nts FERRITIN (test code = 2075) 20 NG/ML Henry Quiles [id number] 00:00:00* Test Item Value Reference Range Interpretation Comme nts TRANSFERRIN (test code = 4936) 315 MG/DL Henry Etta ContrerasHEMOGLOBIN [id number] 03:08:40* Test Item Value Reference Range Interpretation Comme nts HEMOGLOBIN A1c (test code = 25716) 5.5 % 4.2-5.6 CBC W/AUTO DIFF WITH [id number] 02:29:36* Test Item Value Reference Range Interpretation [...] 0.00-0.10 ABS NUCLEATED RBCS (test code = 56608) 0.00 K/UL 0.00-0.11 CBC W/AUTO [id number] 00:00:00* Test Item Value Reference Range Interpretation Comme nts WBC (test code = 1001) 5.0 K/UL RBC (test code = 1002) 3.95 M/UL HEMOGLOBIN (test code = 1003) 11.3 G/DL HEMATOCRIT (test code = 1004) 34.1 % MCV (test code = 1005) 86.3 fL MCH (test code = 1006) 28.6 PG MCHC (test code = 1007) 33.1 G/DL RDW (test code = 1038) 17.6 % NEUTROPHILS (test code = 1008) 42.1 % LYMPHOCYTES (test code = 1010) 40.4 % MONOCYTES (test code = 1011) 11.9 % EOSINOPHILS (test code = 1012) 4.8 % BASOPHILS (test code = 1013) 0.6 % IMMATURE GRANULOCYTES (test code = 1036) 0.2 % NUCLEATED RBCS (test code = 1065) 0.0 /100WBC'S PLATELET COUNT (test code = 1015) 126 K/UL ABSOLUTE NEUTROPHILS (test c ode = 1066) 2.08 K/UL ABSOLUTE LYMPHOCYTES (test c ode = 1067) 2.00 K/UL ABSOLUTE MONOCYTES (test cod e = 1068) 0.59 K/UL ABSOLUTE EOSINOPHILS (test c ode = 1040) 0.24 K/UL ABSOLUTE BASOPHILS (test cod e = 1069) 0.03 K/UL ABS IMMATURE GRANULOCYTES (t est code = 1020) 0.01 K/UL ABS NUCLEATED RBCS (test cod e = 05887) 0.00 K/UL Henryjoseph ContrerasHEMOGLOBIN [id number] 00:00:00* Test Item Value Reference Range Interpretation Comme nts HEMOGLOBIN A1c (test code = 62017) 5.5 % Henry Quiles BenCBC W/AUTO [id number] 00:00:00* Test Item Value Reference Range Interpretation Comme nts WBC (test code = 1001) 5.0 K/UL RBC (test code = 1002) 3.95 M/UL HEMOGLOBIN (test code = 1003) 11.3 G/DL HEMATOCRIT (test code = 1004) 34.1 % MCV (test code = 1005) 86.3 fL MCH (test code = 1006) 28.6 PG MCHC (test code = 1007) 33.1 G/DL RDW (test code = 1038) 17.6 % NEUTROPHILS (test code = 1008) 42.1 % LYMPHOCYTES (test code = 1010) 40.4 % MONOCYTES (test code = 1011) 11.9 % EOSINOPHILS (test code = 1012) 4.8 % BASOPHILS (test code = 1013) 0.6 % IMMATURE GRANULOCYTES (test code = 1036) 0.2 % NUCLEATED RBCS (test code = 1065) 0.0 /100WBC'S PLATELET COUNT (test code = 1015) 126 K/UL ABSOLUTE NEUTROPHILS (test c ode = 1066) 2.08 K/UL ABSOLUTE LYMPHOCYTES (test c ode = 1067) 2.00 K/UL ABSOLUTE MONOCYTES (test cod e = 1068) 0.59 K/UL ABSOLUTE EOSINOPHILS (test c ode = 1040) 0.24 K/UL ABSOLUTE BASOPHILS (test cod e = 1069) 0.03 K/UL ABS IMMATURE GRANULOCYTES (t est code = 1020) 0.01 K/UL ABS NUCLEATED RBCS (test cod e = 93373) 0.00 K/UL Henry ContrerasHEMOGLOBIN [id number] 00:00:00* Test Item Value Reference Range Interpretation Comme nts HEMOGLOBIN A1c (test code = 26106) 5.5 % Henry ContrerasDRUGS OF [id number] 05:03:00* Test Item Value Reference Range Interpretation [...] 200 ng/mL Opiates 300 ng/mL URINALYSIS WITH [id number] 04:56:00* Test Item Value Reference Range Interpretation [...] (test code = USPERM) /HPF NONE URINE [id number] 04:53:00* Test Item Value Reference Range Interpretation [...] the FDA and the [employer] (CAP) are more stringent than those required for this test. Therefore, the result should be interpreted with caution and close attention to other clinical and epidemiological data [id number] 16:00:00* Test Item Value Reference Range Interpretation Comme nts SALICYLATE (test code = 94B) <3.0 mg/dL 15.0-30.0 L LIVER [id number] 15:49:00* Test Item Value Reference Range Interpretation [...] code = 30A) 16 IU/L See_Comment [Automated [employer]Botixa ge] The system which generated this result transmitted reference range: <=33. The reference range was not used to interpret this result as normal/abnormal. ALT (test code = 31A) <7 IU/L 10-49 L [id number] 15:48:00* Test Item Value Reference Range Interpretation [...] to interpret this result as normal/abnormal. 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 Old healed fractures of the distal tibia and fibular noted.Soft tissues: Unremarkable.IMPRESSION: No acute findings.Electronically signed by: Nikko Santiago MD 11/04/2022 3:10 PM CDT [id number] BEDSIDE [id number] 11:51:00* Test Item Value Reference Range Interpretation Comme nts GLUCOSE BEDSIDE TESTING (karen t code = GLUBED) 79 MG/DL 70-119 N GLUCOSE BEDSIDE [id number] 06:23:00* Test Item Value Reference Range Interpretation Comme nts GLUCOSE BEDSIDE TESTING (karen t code = GLUBED) 80 MG/DL 70-119 N BASIC METABOLIC [id number] 05:12:00* Test Item Value Reference Range Interpretation [...] 2.0 <2.0 indicates None DetectedPerformed At: [facility] [address] [id number] Michael Reeves MD Ph:[phone] GLUCOSE BEDSIDE [id number] 19:51:00* Test Item Value Reference Range Interpretation Comme nts GLUCOSE BEDSIDE TESTING (karen t code = GLUBED) 129 MG/DL 70-119 H OSMOLALITY [id number] 17:56:00* Test Item Value Reference Range Interpretation Comme nts OSMOLALITY SERUM (test code = OSMO) 269 mOsm/kg 275-300 L THYROID STIMULATING [id number] 17:56:00* Test Item Value Reference Range Interpretation Comme nts THYROID STIMULATING HORMONE (test code = TSH) 4.190 mc IU/ML 0.340-4.820 N GLUCOSE BEDSIDE [id number] 15:49:00* Test Item Value Reference Range Interpretation [...] code = VALP) 37.5 mcG/ML 50.0-100.0 L [id number] 14:26:00* Test Item Value Reference Range Interpretation Comme nts AMMONIA (test code = AMM) 29.0 mcMOL/L 11.0-32.0 N GLUCOSE BEDSIDE [id number] 11:51:00* Test Item Value Reference Range Interpretation Comme nts GLUCOSE BEDSIDE TESTING (karen t code = GLUBED) 88 MG/DL 70-119 N GLYCOSYLATED HEMOGLOBIN (HA1C)2022-09-18 06:53:00* Test Item Value Reference Range Interpretation Comme nts GLYCOSYLATED HEMOGLOBIN (HA1 C) (test code = GLYHGB) 5.2 % IS-A1C 4.5-5.6 N ESTIMATED AVERAGE [id number] 06:53:00* Test Item Value Reference Range Interpretation [...] to interpret this result as normal/abnormal. UR [id number] 21:28:00* Test Item Value Reference Range Interpretation Comme nts UR SODIUM RANDOM (test code = JESUSITA) 93 mmol/L 40-200 N UR POTASSIUM RANDOM (test code = KU) 54.8 mmol/L 25-125 N NO ESTABLISHED NORMAL RANGES FOR RANDOM SPECIMENS. UR CHLORIDE RANDOM (test code = CLU) 164 mmol/L 110-150 H UR OSMOLALITY [id number] 21:28:00* Test Item Value Reference Range Interpretation Comme nts UR OSMOLALITY RANDOM (test c ode = OSMOU) 475 mOsm/kg 100-1400 N CBC W/O [id number] 20:05:00* Test Item Value Reference Range Interpretation [...] = MPV) 9.5 fL 6.8-11.2 N LACTIC [id number] 19:35:00* Test Item Value Reference Range Interpretation Comme nts LACTIC ACID (test code = LACT) 1.0 mmol/L 0.4-2.0 N HCG SERUM [id number] 19:31:00* Test Item Value Reference Range Interpretation Comme nts HCG SERUM QUAL (test code = HCGQL) Negative SCREEN NEG - CT HEAD/BRAIN W/O [id number] 18:59:00 [facility] : 1975 Sex: F Patient Name: BHUMIKA JONES Unit No: [id number] EXAMS: CPT CODE: [id number] CT HEAD/BRAIN W/O CONT 18507 Location: H3 CT head, conducted on 09/17/22 at 1837 hours COMPARISON EXAMS:Head CT exam of 09/17/22 at 00:06 hours TECHNIQUE: CT examination of the brain was performed without contrast on [facility] scanner. Scanning conducted from skull base [...] Samayoa MD Dictated Date/Time: 09/17/2022 (1858) Technologist: MALA Marie(R)(CT) CTDI: DLP: Trnscrpt: 09/17/2022 (1858) NadiyaDAS6 DENIZ Lugo NAME: YAZMIN Leyva[address] PHYS: Valentina Mattson [place] [address] : 1975 AGE: 47 SEX: F LOC: B.ERMED 20 PHONE #: [phone] EXAM DATE: 09/17/2022 STATUS: ADM IN FAX #: [phone] RAD #: D/C DT PAGE 1 Signed Report Patient Name: BHUMIKA JONES Unit No: [id number] EXAMS: CPT CODE: [id number] CT HEAD/BRAIN W/O CONT 56153 (Continued) Orig Print D/T: S: 09/17/2022 (190) DENIZ Lugo NAME: JONES,[address] PHYS: Valentina Mattson [place] [address] : 1975 AGE: 47 SEX: F LOC: JOSHUA Hastings PHONE #: [phone] EXAM DATE: 09/17/2022 STATUS: ADM IN FAX #: [phone] #: D/C DT PAGE 2 Signed ReportURINALYSIS [id number] 16:28:00* Test Item Value Reference Range Interpretation [...] >0 /UL NONE-SQepi DRUGS OF ABUSE SCREEN [id number] 16:28:00* Test Item Value Reference Range Interpretation [...] interpret this result as normal/abnormal. TROP-I HIGH [id number] 16:26:00* Test Item Value Reference Range Interpretation [...] and URLs may vary bymethod. BASIC METABOLIC [id number] 16:25:00* Test Item Value Reference Range Interpretation [...] interpret this result as normal/abnormal. HEPATIC FUNCTION [id number] 16:25:00* Test Item Value Reference Range Interpretation [...] ode = CK) 92 Unit/L 26-192 N [id number] 16:25:00* Test Item Value Reference Range Interpretation Comme nts LIPASE (test code = LIP) 57 Unit/L 114-286 L - CT HEAD/BRAIN W/O [id number] 00:32:00 [facility] SILAS JONESPCION : 1975 Sex: FPatient Name: BHUMIKA JONES Unit No: [id number] EXAMS: CPT CODE: [id number] CT HEAD/BRAIN W/OCONT 51886 EXAM: - CT HEAD/BRAIN W/O CONT LOCATION: [...] August CTDI: DLP: Trnscrpt: 09/17/2022 (31) [email or web address] [facility] NAME: JONES[address] PHYS: PATCA.02 -Asim Jack [place] [address] : 1975 AGE: 47 SEX: F LOC: B.ERS PHONE #: [phone] EXAM DATE: 09/16/2022 STATUS: REG ER FAX #: [phone] RAD #: D/C DT PAGE 1 Signed Report Patient Name: SILAS JONESPCION Unit No: [id number] EXAMS: CPT CODE: [id number] CT HEAD/BRAIN W/O CONT 18013 (Continued) Orig Print D/T: S: 09/17/2022 (34) DENIZ Lugo NAME: ROBERT[address] PHYS: PATCA.02 - Asim Jack [place] [address] :1975 AGE: 47 SEX: F LOC: M[facility] PHONE #: [phone] EXAM DATE: 09/16/2022 STATUS: FACUNDO ER FAX #: [phone] RAD #: D/C DT PAGE 2 Signed ReportTROP-I HIGH [id number] 00:13:00* Test Item Value Reference Range Interpretation [...] and URLs may vary bymethod. COMPREHENSIVE METABOLIC [id number] 00:11:00* Test Item Value Reference Range Interpretation [...] interpret this result as normal/abnormal. CBC W/AUTO [id number] 23:59:00* Test Item Value Reference Range Interpretation [...] K/mm3 0.0-0.05 N - XR CHEST 1 [id number] 23:34:00 [facility] SILAS JONESPCION : 1975 Sex: F [place]: E St: PRE -- Patient Name: SILAS JONESPCION Unit No: [id number] EXAMS: CPT CODE: [id number] XR CHEST 1 V 75114 EXAMINATION: - XR CHEST 1 V CLINICAL INDICATION: Female, 47 years year old with cough COMPARISON: [facility] 2022 FINDINGS: Single view(s) of the chest submitted. Support Devices: None. Heart: Cardiac silhouette is normal in size. Mediastinum: Mediastinal contours are normal. Lungs: Pulmonary vessels are normal in size. Lungs are well aerated and clear. Pleura: No pleural effusion is identified.No pneumothorax is present. Bones: Visualized skeleton is normal. IMPRESSION: No acute cardiopulmonary disease. at 2334 Reported and signed by: Flo Jansen MD CC: Dictated Date/Time: 09/16/2022 (233)Technologist: Muna Monet Transcribed Date/Time: 09/16/2022 (2333) By: [email or web address] Orig Print D/T: S: 09/16/2022 (7507) DENIZ Lugo NAME: JONES[address] PHYS: [email or web address] - Asim Jack [place], [place] [address] : 1975 AGE: 47 SEX: F LOC: [facility].ERS PHONE #: [phone] EXAM DATE: 09/16/2022 STATUS: PRE ER FAX #: [phone] RAD NO: DC Dt: PAGE 1 Signed ReportCARBAMAZEPINE (TEGRETOL) 2022-09-15 06:12:00* Test Item Value Reference Range Interpretation Comme nts CARBAMAZEPINE (TEGRETOL) (test code = CARB) 1.5 ug/mL 4.0-12.0 L In conjunction w ith other antiepileptic drugs Therapeutic 4.0 - 8.0 Toxicity 9.0 - 12.0 Carbamazepine alone Therapeutic 8.0 - 12.0 Detection Limit = 2.0 <2.0 indicates None DetectedPerformed At: [facility] [address] [id number] Michael Reeves MD Ph:[phone] VALPROIC ACID (DEPAKENE)2022-09-15 06:12:00* Test Item Value Reference Range Interpretation Comme nts VALPROIC ACID (DEPAKENE) (te st code = VALP) 80.6 mcG/ML 50.0-100.0 N COMPREHENSIVE METABOLIC [id number] 06:00:00* Test Item Value Reference Range Interpretation [...] interpret this result as normal/abnormal. CBC W/AUTO [id number] 05:37:00* Test Item Value Reference Range Interpretation [...] NRBC#) 0.00 K/mm3 0.0-0.05 N GLUCOSE BEDSIDE [id number] 20:03:00* Test Item Value Reference Range Interpretation Comme nts GLUCOSE BEDSIDE TESTING (karen t code = GLUBED) 117 MG/DL 70-119 N DRUGS OF ABUSE SCREEN [id number] 11:42:00* Test Item Value Reference Range Interpretation [...] result as normal/abnormal. - CT HEAD/BRAIN W/O [id number] 11:37:00 [facility] JONES BHUMIKA : 1975 Sex: F Patient Name: ROBERTBHUMIKA Unit No: [id number] EXAMS: CPT CODE: [id number] CT HEAD/BRAIN W/O CONT 34942 EXAMINATION: - CT HEAD/BRAIN W/O CONT COMPARISON: None HISTORY: Seizure LOCATION CODE: [id number]: CT of the Brain without contrast. Axial non contrast images of the brain were obtained from the skull base to the vertex which were reviewed in bone and soft tissue algorithms. Coronal andsagittal reformatted images were also submitted for review [...] MD Dictated Date/Time: 09/14/2022 (1137) Technologist: ASUNCION EARLDI: DLP: Trnscrpt: 09/14/2022 (1137) [email or web address] [facility] NAME: BHUMIKA JONES MEDICAL IMAGING PHYS: Vladimir Menchaca MD [address] [place], [place] [address]VD : 1975 AGE: 47 SEX: F [place] [address] LOC: NEHA Cintron PHONE #: [phone] EXAM DATE: 09/14/2022 STATUS: ADM IN FAX #: [phone] RAD #: D/C DT PAGE 1 Signed Report Patient Name: BHUMIKA JONES Unit No: [id number] EXAMS: CPT CODE: [id number] CT HEAD/BRAIN W/O CONT 65620 (Continued) Orig Print D/T: S: 09/14/2022 (1140) DENIZ Lugo NAME: BHUMIKA JONES MEDICAL IMAGING PHYS: Vladimir Menchaca MD [address] [place] [address] BLVD : 1975 AGE: 47 SEX: F [place], [place] [address] LOC: NEHA Cintron PHONE #: [phone] EXAM DATE: 09/14/2022 STATUS: ADM IN FAX #: [phone] RAD #: D/C DT PAGE 2 Signed [...] AVOIDED DUE TO POSSIBLE HEPARINCONTAMINATION HCG SERUM [id number] 06:51:00* Test Item Value Reference Range Interpretation [...] CK) 268 Unit/L 26-192 H CBC W/AUTO [id number] 03:43:00* Test Item Value Reference Range Interpretation [...] = NRBC#) 0.00 K/mm3 0.0-0.05 N URINALYSIS [id number] 03:41:00* Test Item Value Reference Range Interpretation [...] RARE /LPF NONE - XR CHEST 2 [id number] 02:06:00 [facility] : 1975 Sex: FFAX: TylerbrandanSuleman MIRANDA [phone] [place]: St: REG Patient Name: BHUMIKA JONES Unit No: [id number] EXAMS: CPT CODE: [id number] XR CHEST 2 V 87091 EXAM: - XR CHEST 2 V HISTORY: [...] [id number] Orig Print D/T: S: 09/14/2022 (208) [facility] [place] NAME: BHUMIKA JONES [address] [place] [address] PHYS: GISEL - Suleman [place], [place] [address] : 1975 AGE: 47 SEX: F LOC: MARCOS PHONE #: [phone] EXAM DATE: 09/14/2022 STATUS: FACUNDO MARTINEZ #: [phone] RAD NO: DC Dt: PAGE 1 Signed ReportCOMPREHENSIVE METABOLIC [id number] 12:49:00* Test Item Value Reference Range Interpretation [...] used to interpret this result as normal/abnormal. [id number] 12:49:00* Test Item Value Reference Range Interpretation Comme nts MAGNESIUM (test code = MAG) 1.7 MG/DL 1.6-2.6 N CBC W/AUTO [id number] 12:36:00* Test Item Value Reference Range Interpretation [...] RARE /LPF NONE DRUGS OF ABUSE SCREEN [id number] 00:33:00* Test Item Value Reference Range Interpretation [...] 300 ng/mL UA RFLX MICR CULT IF [id number] 00:30:00* Test Item Value Reference Range Interpretation [...] culture: Suprapubic PainSpecimen Description: CLEAN CATCHBASIC METABOLIC [id number] 00:18:00* Test Item Value Reference Range Interpretation [...] 8.9 mg/dl 8.0-10.5 N HEPATIC FUNCTION PANEL [id number] 00:18:00* Test Item Value Reference Range Interpretation [...] ALKP) 113 Units/L 50.0-136.0 N HCG SERUM [id number] 00:18:00* Test Item Value Reference Range Interpretation Comme [facility] HCG SERUM QUAL (test code = HCGQL) NEGATIVE NEGATIVE [id number] 00:18:00* Test Item Value Reference Range [facility]ation [facility] (test code = ALC) 0.00 gm/dL 0.00-0.00 N ETHYL ALCOHOL MIRELLA HARRELL - INTERPRETATION: 0.050 GM/DL - NOT INTOXICATED 0.100 GM/DL - INTOXICATED 0.350-0.450 GM/DL - SEVERELY INTOXICATED 0.550 GM/DL- FATAL INTOXICATION Coronavirus 2019 nCoV [id number] 00:09:00* Test Item Value Reference Range Interpretation Comme [facility] Coronavirus 2019 nCoV Bedside (test code = [id number]) Negative NEGATIVE Negative results should be treated as presumptive and ifinconsistent with clinical signs and symptoms, or necessaryfor patient management, should be tested with an alternativemolecular assay. Negative results do not preclude PPNP-UmB-2fizeylgzm and should not be used as the sole basis forpatient management decisions. Negative results should beconsidered in the context of a patient's recent exposures,history, presence of clinical signs and symptoms consistentwith COVID-19. CBC W/AUTO [id number] 23:58:00* Test Item Value Reference Range Interpretation Comme [facility] WHITE BLOOD CELL (test code = [...] X10 3uL 0.00-0.01 N COMP. METABOLIC PANEL (29921)2022-09-07 02:12:41* Test Item Value Reference Range Interpretation Comme nts NA (test code = 7009209436) 133 mmol/L 135-145 L K (test code = 4411259232) 4.4 mmol/L 3.5-5.0 CL (test code = 9981500348) 102 mmol/L 98-108 CO2 TOTAL (test code = 9647478885) 25 mmol/L 23-31 AGAP (test code = 6616346654) 6 2-16 BUN (test code = 5648923480) 22 mg/dL 7-23 GLUCOSE (test code = 5958494180) 97 mg/dL 70-110 CREATININE (test code = 3999475709) 0.40 mg/dL 0.50-1.04 L TOTAL BILI (test code = 8011139095) 0.3 mg/dL 0.1-1.1 CALCIUM (test code = 0401903337) 8.9 mg/dL 8.6-10.6 T PROTEIN (test code = 6690947478) 7.7 g/dL 6.3-8.2 ALBUMIN (test code = 5795464465) 4.0 g/dL 3.5-5.0 ALK PHOS (test code = 0200412839) 104 U/L 34-122 ALTv (test code = 1742-6) 15 U/L 5-35 AST(SGOT) (test code = 8329880433) 22 U/L 13-40 eGFR (test code = 4757160246) 170.4 mL/min/1.73m2 HANNAH (test code = HANNAH) [...] imaging tests). Lab Interpretation (test code = 20770-2) Abnormal [facility] WITH [id number] 02:01:20* Test Item Value Reference Range Interpretation Comme nts WBC (test code = 6690-2) 6.17 See_Comment [Automated [employer] Semanticator] The system which generated this result transmitted reference range: 4.30 - 11.10 10*3/?L. The reference range was not used to interpret this result as normal/abnormal. RBC (test code = 789-8) 3.73 See_Comment L [Automated [employer] Semanticator] The system which generated this result transmitted [...] 32.9 g/dL 31.6-35.1 RDW-SD (test code = 66860-2) 48.1 fL 39.0-49.9 RDW-CV (test code = 788-0) 14.7 % 12.0-15.5 PLT (test code = 777-3) 272 See_Comment [Automated [employer]anticator] The system which generated this result transmitted reference range: 166 - 358 10*3/?L. The reference range was not used to interpret this result as normal/abnormal. MPV (test code = 99141-1) 9.6 fL 9.5-12.9 NRBC/100 WBC (test code = 2019568178) 0.0 See_Comment [Automated me ssage] The system which generated this result transmitted reference range: 0.0 - 10.0 /100 WBCs. The reference range was not used to interpret this result as normal/abnormal. NRBC x10^3 (test code = 2768528461) See_Comment [Automated messa ge] The system which generated this result transmitted reference range: 10*3/?L. The reference range was not used to interpret this result as normal/abnormal. GRAN MAT (NEUT) % (test code = 770-8) 42.2 % IMM GRAN % (test code = 7294286912) 0.20 % LYMPH % (test code = 736-9) 38.2 % MONO % (test code = 5905-5) 12.6 % EOS % (test code = 713-8) 5.8 % BASO % (test code = 706-2) 1.0 % GRAN MAT x10^3(ANC) (test code = 1415595263) 2.60 10*3/uL 1.88-7.09 IMM GRAN x10^3 (test code = 4933966929) 0.00-0.06 LYMPH x10^3 (test code = 731-0) 2.36 10*3/uL 1.32-3.29 MONO x10^3 (test code = 742-7) 0.78 10*3/uL 0.33-0.92 EOS x10^3 (test code = 711-2) 0.36 10*3/uL 0.03-0.39 BASO x10^3 (test code = 704-7) 0.06 10*3/uL 0.01-0.07 Lab Interpretation (test code = 11276-3) Abnormal [facility] by RT-PCR (HIGH RISK) 2020-08-19 00:00:00* Test Item Value Reference Range Interpretation Comme nts SARS-CoV-2 INTERPRETATION (t est code = 80589) NEGATIVE SOURCE (test code = 13906) NOT SPECIFIED Henry ContrerasSARS-CoV-2 (COVID-19) by RT-PCR (HIGH RISK)2020-08-19 00:00:00* Test Item Value Reference Range Interpretation Comme nts SARS-CoV-2 INTERPRETATION (t est code = 36205) NEGATIVE SOURCE (test code = 58603) NOT SPECIFIED Henry Quiles AustinHPV HIGH RISK WITH GENOTYPE, [id number] 00:00:00* Test Item Value Reference Range Interpretation Comme nts HPV HIGH RISK INTERP (test c ode = 77968) NEGATIVE HPV 16 (test code = 59910) NEGATIVE HPV 18 (test code = 15457) NEGATIVE HPV, HR, OTHER GENOTYPES (te st code = 05854) NEGATIVE Henry ContrerasPAP TEST, THINPREP, [id number] 00:00:00* Test Item Value Reference Range Interpretation Comme nts SOURCE: (test code = 8001) Cervical/Endocervical SLIDES: (test code = 8011) 1 LMP: (test code = 8021) 06/2017 SPECIMEN ADEQUACY: (test code = 20821) (NOTE) INTERPRETATION: (test code = 31333) NILM/NO EPITH. ABNORMALITY;SEE BELOW FISH NET MAKER: (test code = 8101) [place], CT(ASCP) IAC LOCATION: (test code = 28621) (NOTE) CPT: (test code = 8140) (NOTE) Henry Quiles AustinHPV HIGH RISK WITH GENOTYPE, [id number] 00:00:00* Test Item Value Reference Range Interpretation Comme nts HPV HIGH RISK INTERP (test c ode = 56229) NEGATIVE HPV 16 (test code = 23225) NEGATIVE HPV 18 (test code = 94612) NEGATIVE HPV, HR, OTHER GENOTYPES (te st code = 99005) NEGATIVE Henry ContrerasPAP TEST, THINPREP, [id number] 00:00:00* Test Item Value Reference Range Interpretation Comme nts SOURCE: (test code = 8001) Cervical/Endocervical SLIDES: (test code = 8011) 1 LMP: (test code = 8021) 06/2017 SPECIMEN ADEQUACY: (test code = 88858) (NOTE) INTERPRETATION: (test code = 84620) NILM/NO EPITH. ABNORMALITY;SEE BELOW FISH NET MAKER: (test code = 8101) [facility] LOCATION: (test code = 58352) (NOTE) CPT: (test code = 8140) (NOTE) Henry ContrerasCT HEAD WO [id number] 22:34:12Impression: 1. ?No acute intracranial process. 2. ?Diffuse cerebral volume loss which is slightly at ypical and unexpectedgiven the age of the patient. [...] he patient. Please correlate with history and physicalexamination.[facility] CERVICAL SPINE 2 [id number] 22:29:40No acute osseous abnormality. Preliminary Report Dictated [...] reviewed this study and agree with theabove report.[facility] WITH UACEROSFGDPD7309-07-96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 PATIENT: BHUMIKA JONES UNIT #: [id number]#: [id number] [address] [birth year] AGE: 47 SEX: F ATTEND: Marly Mendenhall [facility] AUTHOR: Nelia Parker MD * ALL edits or amendments must be made on the electronic/computer document * See AddendumHistory of Present Illness HPIRequesting clinician: see consult orderReason for consult:"AMS"Chief complaint:wanting to go home for her familyHPI:47-year-old female Azerbaijani speaking only who was brought into the [...] refilled and [facility]. Reportedly per the patient she did not [...] to her family. Only ambulance records from [facility] for patient who was brought in here [...] Ox 100 09/18 1126 B/P 116/83 09/18 112 B/P Mean 94.0 09/18 1126 O2 Delivery Room air 09/18 1126 Temp 98.2 09/18 1126 Pulse 64 09/18 112 Resp 18 09/18 1126 FiO2 21 09/18 [...] MG 09/18 09/18 09/17 09/17 0553 0553 7845 1516Chemistry Hemoglobin A1c (4.5 - 5.6 % IS-A1C) [...] - 8.0 pH UNITS) 6.5 Ur Specific Argillite (1.001 - 1.035 SG) 1.013 Urine Protein [...] in the past ornot. at 1652 RPT #:[id number] OF REPORTTOPymzwunvelau1249-76-56Q50:24: 00B.CKCA71239845-7228VFPzodozfoe for patient aygpLWSTMVRDRTRJVT5324-17-47C26:10:17 [facility] 2022-09-18 11:44:00 [id number]Nk2F 97iYhLpIhHvNJHav3r/wRUvLhnl2OXRzZWTh4036 -03-28T11:44:00 [facility] ([facility])Hospitalist Progress NoteREPORT#:[id number] REPORT STATUS: SignedDATE:09/18/22 TIME: 1144 PATIENT: BHUMIKA JONES UNIT #: [id number]#: [id number] [address] [birth year] AGE: 47 SEX: F ATTEND: [...] patient this morning with the help of nurses' association executive director and she said that he lives with [...] capillary refill, normal range of motion, no edemaNeuro/CUTTER V GROOVE: altered mental status, alert Diagnosis, Assessment Plan [...] afternoon if remains stable at 1147 RPT #:[id number] OF REPORTPRProgress nijb3329-27-18N36:44:00B.NHHJ98694412-96 67AVAvailable for patient chqrWJIUBGGRNWIQPN1853-98-98E37:47:26 [facility] 2022-09-18 01:06:00 [id number]1c7W uDM2JTKztooqJ3fNT3RvRr1SL+vcC2adQ/oS4564T01:06:00 [facility] ([facility]Hospital[facility] History PhysicalREPORT#:[id number] REPORT STATUS: SignedDATE:09/18/22 TIME: 0106 PATIENT: BHUMIKA JONES UNIT #: [id number]#: [id number] [address] [birth year] AGE: 47 SEX: F ATTEND: [...] - 8.0 pH UNITS) 6.5 Ur Specific Argillite (1.001 - 1.035 SG) 1.013 Urine Protein [...] awakeCardiovascular: regular rate rhythmRespiratory: decreased breath soundsAbdomen: softNeuro/CUTTER V GROOVE: altered mental status, alert Diagnosis, Assessment PlanFree Text A P:HyponatremiaDo a work-upContinue Ringer lactate 50 cc/h monitor electrolytes Metabolic encephalopathyNeuro watchTreat underlying condition SchizophreniaContinue home medication once confirmed Seizure disorderContinue home medicationSeizure precaution DVT prophylaxisLovenoxAdvanced directive discussedMedication reviewed and reconciledBefore midnightI will sign off at 6 AM today further management by incoming thereafter at 0110 RPT #:[id number] OF REPORTHPHistory and physical xmjzjneqfgq5070-00-04L40:06:00B.KNOV7311 0328-0013AVAvailable for patient hrnpYWPAXDVCPRHQFW7436-28-19G11:10:56 [facility] 2022-09-17 14:34:00 [id number]/Kz9+y6pHDjmZESI PyOkBcYTHVLuNMlE014TtPBXCGX3Mr07P1fo3112 -03-27T14:34:00 [facility]ERGENC[facility] PROVIDER REPORTREPORT#:[id number] REPORT STATUS: SignedDATE:09/17/22 TIME: 1434 PATIENT: BHUMIKA JONES UNIT #: [id number]#: [id number] [address] 47 SEX: F PCP PHYS: No Primary or Family PhysicianSERVICE AUTHOR: Valentina Samayoa MD * ALL edits or amendments must be made on the electronic/computer document * HPI-General Illness Free Text HPI NotesFree Text HPI Fgygd50-uehu-fuy female presents after possible seizure episode at [facility], [facility] assessment patient is not fully oriented, and cannot provide history of theevents of today when asked multiple times. Additional history limited as the patient is tearful and not fully oriented. I spoke to the patient's sister Lewis Luis, phone #[phone] by phone, who reports the patient has been missing from home for 8 days. Reports when the patient is medically cleared they can come get the patient. Patient reportedly initially without medicationsat the [facility] PMH: Seizures, schizophrenia. GeneralInitial Greet [...] Prov: 09/13/22 DC: 09/14/22 1500 entry level manufacturing engineer correctionDIVALPROEX (GINA CALLES) 1,000 MG PO DAILY DIVALPROEX (GINA CALLES) 1,000 MG PO DAILY #60 TABS Prov: 09/13/22 DC: 09/14/22 1459 entry level manufacturing engineer correction Reported MedicationsDIVALPROEX ER (DEPAKOTE ER) [...] - 8.0 pH UNITS) 6.5 Ur Specific Argillite (1.001 - 1.035 SG) 1.013 Urine Protein [...] medication refill, drowsy, admitted, ultimately discharged back [facility]]-My EKG interpretation: I directly visualized [...] 1634 )( Accepted Date 09/17/22 at 1114RPT #:[id number] OF REPORTEDEmergency department xpcpho2770-02-98L92:34:00B.QIOA97868798- 0357AVAvailable for patient wmpxKWBBAKILAJVUOY2311-28-82P44:14:25 [facility] 2022-09-17 00:19:00 [id number]+/9FMdISq WV/sdPTV4ZBrxQVS+SjBBKra+/hXIr0sA1UY7676 -03-27T00:19:00 [facility])EMERGENCY PROVIDER REPORTREPORT#:[id number] REPORT STATUS: SignedDATE:09/17/22 TIME: 001 PATIENT: BHUMIKA JONES UNIT #: [id number]#: [id number] ROOM/BED:AGE: 47 SEX: F PCP PHYS: No [...] activity. She was recently admitted here at [facility] and worked up for possible [...] Prov: 09/13/22 DC: 09/14/22 1500 entry level manufacturing engineer correctionDIVALPROEX DR TEOFILO CALLES) 1,000 MG PO DAILY DIVALPROEX DR TEOFILO CALLES) 1,000 MG PO DAILY #60 TABS Prov: 09/13/22 DC: 09/14/22 1459 entry level manufacturing engineer correction Reported MedicationsDIVALPROEX ER (DEPAKOTE ER) [...] 142/84 09/17 0016 B/P Mean 103 09/17 001 O2 Delivery Room air 09/17 001 Temp 36.9 09/17 001 Pulse 67 09/17 0016 Resp 16 09/17 001 Review of Vital Signs Reviewed Free Text [...] % (Auto) (14.1 - 45.4 %) 29.6 [place] % (Auto) (2.5 - 11.7 %) 10.8 Eos % (Auto) (0.0 - 6.2 %) 2.9 Baso % (Auto) (0.0 - 2.1 %) 0.7 Gran # (2.0 - 13.7 k/mm3) 3.12 Lymph # (Auto) (0.6 - 3.8 K/mm3) 1.65 [place] # (Auto) (0.11 - 0.59 K/mm3) 0.60 [...] in the medical decision-making. ECG #1 InterpretationText/Dict Ckqm4753 EKG shows normal sinus rhythm and rate [...] discharge. Patient urged to follow-up with Louann gallagher in the next 2 to 3 days [...] B/P 136/82 09/17 2255 B/P Mean 100 09/166 O2 Delivery Room air 09/17 2255 Temp 37.1 09/17 2255 Pulse 75 09/166 Resp 16 09/17 2255 Last Documented: Result [...] Seizure, Recurrent (Adult)Additional InstructionsPlease follow-up with Lou[facility] Gall[facility], [facility], and neurology. Return if any confusion, headache, stiff neck, fever, vomiting, or any other new concerns. Please take all your medications as instructedReferralsProvider Group: [facility] Canales Resident Program Follow-Up: 2-3 Days Provider Referral: Nelia Parker MD Follow-Up: 2-3 Days Address: [address] [place] [address] [address] [place] [address] Resource Referral: [facility] [place] Follow-Up: 2-3 Days Address: [address] [facility], [place] [address] at 0140RPT #:[id number] OF REPORTEDEmergency department yjrchp6206-70-62D91:19:00B.JORC33382319- 0005AVAvailable for patient qmkpEDJLYRYVAZNOVY9112-04-88U38:41:10 [facility] 2022-09-15 12:06:00 [id number]d9ty Ooll1u+Tc4B20hkEHieNeIcai7VbN1c5D1648313 -03-25T12:06:00 [facility] ([facility])Electroencephalogram-EEGREPORT#:[id number] REPORT STATUS: SignedDATE:09/15/22 TIME: 1206 PATIENT: BHUMIKA JONES UNIT #: [id number]#: [id number] [facility] AGE: 47 SEX: F ATTEND: Vladimir Forbes [facility] AUTHOR: Vickie Lewis MD * ALL edits [...] or electrographic seizures recorded. at 1209 RPT #:[id number] OF REPORTDIDiagnostic yznxtem0678-20-78Y30:06:00B.VTVT19743129 -0179AVAvailable for patient xbeqUBIYJZKVLAHLFC1213-35-74H09:09:33 [facility] 2022-09-15 12:00:00 [id number]QMzh /DnbFwTmmXaYj2cJrO5KyjTp0sTL5Rte/wL84649T12:00:00 [facility]ospital[facility] Discharge SummaryREPORT#:[id number] REPORT STATUS: SignedDATE:09/15/22 TIME: 1200 PATIENT: BHUMIKA JONES UNIT #: [id number]#: [id number] [address] [birth year] AGE: 47 SEX: F ATTEND: Vladimir Forbes [facility] AUTHOR: Vladimir Forbes MD * ALL edits [...] evaluated for possible seizure episode. She is Azerbaijani-speakingpatient only in ice cream dipper was used. Patient denies to have any [...] initial diagnosis and related differentials with the patient/client care consultant including RN. All concerns and questions are answered to the best of my abilities based on theavailable data.I have initiated the plan of care based on preliminary diagnosis,requested appopriate consultations with labs/imagings. Patient/client care consultant verbalizes understanding of the plan of care. [...] timeframe: In 1-2 weeks at 1202 RPT #:[id number] OF REPORTDSDischarge tbhxocc9790-11-74R55:00:00B.XCKC17326666 -0169AVAvailable for patient yljrEMEMVKTRNTSJIW8415-25-14D53:03:09 [facility] 2022-09-14 16:56:00 [id number]+aw4z2Q51R pDT6D6/4FToAJ0G7u6qfgs+qlNuTFJ64U/pP88692022T16:56:00 [facility]neNeurology Consultation NoteREPORT#:[id number] REPORT STATUS: SignedDATE:09/14/22 TIME: 1655 PATIENT: BHUMIKA JONES UNIT #: [id number]#: [id number] [facility] [birth year] AGE: 47 SEX: F ATTEND: Jim Jaimes [facility] AUTHOR: Vickie Lewis MD * ALL edits [...] evaluated for possible seizure episode. She is Azerbaijani-speakingpatient only in ice cream dipper was used. Patient denies to have any [...] (SODIUM CHLORIDE 0.9% 1000 ML) 1,000 ML .O70M62U IV Trazodone HCl (DESYREL) 50 MG BEDTIME PRN PRN PO Sodium Chloride (SODIUM CHLORIDE 0.9% 1000 ML) 1,000 ML .C89K61P IV Carbamazepine (TEGretol) 400 MG BID PO Divalproex Sodium (DEPAKOTE DR) 1,000 MG BID PO (DC) Acetaminophen (TYLENOL) 650 MG Q6H PRN PRN PO Ondansetron HCl (ZOFRAN) 4 MG Q4H PRN PRN IV Ceftriaxone Sodium (ROCEPHIN) 1 GM Q24H IV (CAN) Lactated Ringer's (LACTATED RINGERS) 1,000 ML .P01H47E IV Ceftriaxone Sodium (ROCEPHIN) 1 GM X1ED [...] due to patient poor cooperation ResultsFindings/Data:Laboratory Tests 09/1434 0315 Chemistry Sodium (133 - 144 mmol/L) [...] 1 NORMAL <10 MG Laboratory Tests 09/14 0534 Coagulation PT (9.4 - 12.5 SECONDS) 10.7 [...] % (Auto) (14.1 - 45.4 %) 33.6 [place] % (Auto) (2.5 - 11.7 %) 13.4 H Eos % (Auto) (0.0 - 6.2 %) 7.4 H Baso % (Auto) (0.0 - 2.1 %) 0.9 Gran # (2.0 - 13.7 k/mm3) 2.61 Lymph # (Auto) (0.6 - 3.8 K/mm3) 1.96 [place] # (Auto) (0.11 - 0.59 K/mm3) 0.78 [...] - 8.0 pH UNITS) 6.0 Ur Specific Argillite (1.001 - 1.035 SG) 1.032 Urine Protein [...] cardiopulmonary process.Impression By: NadiyaMKM4 - Igor Almonte, [facility] SCAN - CT HEAD/BRAIN W/O CONT [...] be deferred to primary team. at 1707 [facility] #:[id number] OF REPORTSVBdqhexnxhvtj3388-00-89Q95:56: 00B.RKOO29360880-0900YTXfldsbdzd for patient efvcNNLLYAUJADYYQU3474-86-75L63:07:40 [facility] 2022-09-14 14:55:00 [id number]/UKGZN1h8M7TGmC55kC9XHPwlqs DM8vth3V3OCVjUHRbSRZ1qeRK0JCEWWBVlX07635 -03-24T14:55:00 [facility]ospital[facility] History PhysicalREPORT#:[id number] REPORT STATUS: SignedDATE:09/14/22 TIME: 1455 PATIENT: BHUMIKA JONES UNIT #: [id number]#: [id number] [facility] [birth year] AGE: 47 SEX: F ATTEND: Jim Jaimes [facility] AUTHOR: Vladimir Forbes MD * ALL edits [...] evaluated for possible seizure episode. She is Azerbaijani-speakingpatient only in ice cream dipper was used. Patient denies to have any [...] (0.88 - 1.13 INR Unit) 0.95 PTT ([place]) (24 - 37.7 SECONDS) 34.6 Toxicology Valproic [...] % (Auto) (14.1 - 45.4 %) 33.6 [place] % (Auto) (2.5 - 11.7 %) 13.4 H Eos % (Auto) (0.0 - 6.2 %) 7.4 H Baso % (Auto) (0.0 - 2.1 %) 0.9 Gran # (2.0 - 13.7 k/mm3) 2.61 Lymph # (Auto) (0.6 - 3.8 K/mm3) 1.96 [place] # (Auto) (0.11 - 0.59 K/mm3) 0.78 [...] - 8.0 pH UNITS) 6.0 Ur Specific Argillite (1.001 - 1.035 SG) 1.032 Urine Protein [...] cardiopulmonary process.Impression By: NadiyaMKM4 - Igor Almonte, [facility] SCAN - CT HEAD/BRAIN W/O CONT [...] evaluated for possible seizure episode. She is Azerbaijani-speakingpatient only in ice cream dipper was used. Patient denies to have any [...] initial diagnosis and related differentials with the patient/client care consultant including RN. All concerns and questions are answered to the best of my abilities based on theavailable data.I have initiated the plan of care based on preliminary diagnosis,requested appopriate consultations with labs/imagings. Patient/client care consultant verbalizes understanding of the plan of care. at 1501 RPT #:[id number] OF REPORTHPHistory and physical [id number]:55:00B.[id number] for patient [id number]:01:57 [facility] 2022-09-14 04:21:00 [id number] s/OTgjHpJtkqNzQdO1wOCdXwLUWYbY/OGon06541T04:21:00 [facility] ([facility])EMERGENCY PROVIDER REPORTREPORT#:[id number] REPORT STATUS: SignedDATE:09/14/22 TIME: 042 PATIENT: JONES,BAI UNIT #: [id number]#: [id number] [address] 47 SEX: F PCP PHYS: No Primary or Family PhysicianSERVICE AUTHOR: Suleman Carvalho * ALL edits or amendments must be made on the electronic/computer document * DevenSuleman 09/14/22 0421:HPI-General Illness Free Text HPI NotesFree [...] Complaint __ (needs help)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 [...] plan of care. at 0449 at 0540RPT #:[id number] OF REPORTNorth [facility] department [id number]:21:00B.[id number] for patient [id number]:49:55 [facility] 2022-09-13 20:34:00 [id number]iB56tkq6629 -03-23T20:34:00 [facility] PROVID[facility] REPORTREPORT#:[id number] REPORT STATUS: SignedDATE:09/13/22 TIME: 2033 PATIENT: BHUMIKA JONES UNIT #: [id number]#: [id number] RO[facility]BED: [facility]-WAGE: 47 SEX: F PCP PHYS: No Primary or Family PhysicianSERVICE AUTHOR: Stephanie Bosch * ALL edits or amendments must be made on the electronic/computer document * Provider in Triage - Adult Provider in TriageInitial Greemy Date/Time 09/13/222017 Sairta DeleonI have greeted and performed a focused [...] (RisperDAL) 3 MG PO DAILY at 1707RPT #:[id number] OF REPORTEDEmergency department [id number]:34:00B.[id number] for patient dcjsJOXNMUSDGGJOAJ5658-03-21B56:08:12 [facility] 2022-09-13 09:58:00 [id number] [id number] -03-23T09:58:00 [facility] ([facility])EMERGENCY PROVIDER REPORTREPORT#:[id number] REPORT STATUS: SignedDATE:09/13/22 TIME: 957 PATIENT: BHUMIKA JONES UNIT #: [id number]#: [id number] ROOM/BED:AGE: 47 SEX: F PCP PHYS: No Primary or Family PhysicianSERVICE AUTHOR: Brad Woodall DO * ALL edits or amendments must be made on the electronic/computer document * HPI-General Illness Free Text HPI NotesFree Text HPI Tcyxn93-xdtz-pte female past medical history epilepsy out of [...] - 8.0 pH UNITS) 6.0 Ur Specific [place] (1.001 - 1.035 SG) 1.024 Urine Protein [...] % (Auto) (14.1 - 45.4 %) 34.0 [place] % (Auto) (2.5 - 11.7 %) 10.1 Eos % (Auto) (0.0 - 6.2 %) 2.7 Baso % (Auto) (0.0 - 2.1 %) 0.7 Gran # (2.0 - 13.7 k/mm3) 3.04 Lymph # (Auto) (0.6 - 3.8 K/mm3) 1.98 [place] # (Auto) (0.11 - 0.59 K/mm3) 0.59 [...] Pulse Ox 97 09/13 0836 B/P 136/80 09/13 0836 B/P Mean 98 09/13 0836 O2 Delivery Room air 09/14 935 Temp [...] MG PO BEDTIME #[address] (GINA CALLES) 1,000 MG PO [...] or a call to 911. at 1327RPT #:[id number] OF REPORTNorth [facility] Medical Center department [id number]:58:00B.[id number] for patient [id number]:28:04 [facility]
--- NOTE | 2023-11-26 15:35 | EDPHYS ---
Physician Documentation [facility] Name: Davida Hodges Age: 48 yrs Sex: Female : 1975 Arrival Date: 11/26/2023 Time: 15:13 Bed IW5 Private MD: ED Physician Pascual Lundy HPI: 11/25 15:30 This 48 yrs old Female presents to ER via Unassigned with complaints of Chest ry Pain. 15:30 The patient or guardian reports chest pain that is located primarily in the anterior ry chest wall, bilaterally. Onset: just prior to arrival. The pain does not radiate. Associated signs and symptoms: The patient has no apparent associated signs or symptoms. The chest pain is described as aching. Duration: The patient or guardian reports multiple episodes, with no pattern. Severity of pain: At its worst the pain was mild in the emergency department the pain is unchanged. - Family history:: not pertinent. ROS: 15:30 Constitutional: Negative for fever, chills, and weight loss, Eyes: Negative for injury, ry pain, redness, and discharge, ENT: Negative for injury, pain, and discharge, Neck: Negative for injury, pain, and swelling, Respiratory: Negative for shortness of breath, cough, wheezing, and pleuritic chest pain, Abdomen/GI: Negative for abdominal pain, nausea, vomiting, diarrhea, and constipation, Back: Negative for injury and pain, : Negative for injury, bleeding, discharge, and swelling, MS/Extremity: Negative for injury and deformity, Skin: Negative for injury, rash, and discoloration, Neuro: Negative for headache, weakness, numbness, tingling, and seizure, Psych: Negative for depression, anxiety, suicide ideation, homicidal ideation, and hallucinations, Allergy/Immunology: Negative for hives, rash, and allergies, Endocrine: Negative for neck swelling, polydipsia, polyuria, polyphagia, and marked weight changes, Hematologic/Lymphatic: Negative for swollen nodes, abnormal bleeding, and unusual bruising, 15:30 Cardiovascular: Positive for chest pain, Exam: 15:30 Constitutional: This is a well developed, well nourished patient who is awake, alert, ry and in no acute distress. Head/Face: Normocephalic, atraumatic. Eyes: Pupils equal round and reactive to light, extra-ocular motions intact. Lids and lashes normal. Conjunctiva and sclera are non-icteric and not injected. Cornea within normal limits. Periorbital areas with no swelling, redness, or edema. ENT: Nares patent. No nasal discharge, no septal abnormalities noted. Tympanic membranes are normal and external auditory canals are clear. Oropharynx with no redness, swelling, or masses, exudates, or evidence of obstruction, uvula midline. Mucous membranes moist. Neck: Trachea midline, no thyromegaly or masses palpated, and no cervical lymphadenopathy. Supple, full range of motion without nuchal rigidity, or vertebral point tenderness. No Meningismus. Chest/axilla: Normal chest wall appearance and motion. Nontender with no deformity. No lesions are appreciated. Cardiovascular: Regular rate and rhythm with a normal S1 and S2. No gallops, murmurs, or rubs. Normal PMI, no JVD. No pulse deficits. Respiratory: Lungs have equal breath sounds bilaterally, clear to auscultation and percussion. No rales, rhonchi or wheezes noted. No increased work of breathing, no retractions or nasal flaring. Abdomen/GI: Soft, non-tender, with normal bowel sounds. No distension or tympany. No guarding or rebound. No evidence of tenderness throughout. Back: No spinal tenderness. No costovertebral tenderness. Full range of motion. Skin: Warm, dry with normal turgor. Normal color with no rashes, no lesions, and no evidence of cellulitis. MS/ Extremity: Pulses equal, no cyanosis. Neurovascular intact. Full, normal range of motion. Neuro: Awake and alert, GCS 15, oriented to person, place, time, and situation. Cranial nerves II-XII grossly intact. Motor strength 5/5 in all extremities. Sensory grossly intact. Cerebellar exam normal. Normal gait. Psych: Awake, alert, with orientation to person, place and time. Behavior, mood, and affect are within normal limits. MDM: 15:18 Patient medically screened. ry 15:31 Differential diagnosis: abnormal EKG, acute myocardial infarction, acute pericarditis, ry anxiety, coronary artery disease chest wall pain, congestive heart failure Cholelithiasis costochondritis, esophagitis, hiatal hernia, pancreatitis, peptic ulcer disease, pleurisy, pulmonary embolus, stable angina, thoracic aortic disection, unstable angina. HEART Score: History: Slightly Suspicious (0). The patient was given aspirin in the Emergency Department. MITESH Risk Score: TOTAL SCORE = 0. Data reviewed: vital signs, nurses notes. Consideration of Admission/Observation Escalation of care including admission/observation considered. I considered the following discharge prescriptions or medication management in the emergency department Medications were administered in the Emergency Department. See MAR. Test considered but Not performed: Other Details pt wanted no test , no treatment. 15:33 ED course: pt wanted to leave from lobby, wanted no test. ry Administered Medications: No medications were administered Disposition Summary: 11/26/23 15:34 Discharge Ordered Notes: Location: Home ry Problem: new ry Symptoms: have improved ry Condition: Stable ry Diagnosis - Chest pain, unspecified ry - Schizophrenia, unspecified ry Followup: ry - With: Private Physician - When: 2 - 3 days - Reason: Recheck today's complaints, Continuance of care, Re-evaluation by your physician Followup: ry - With: Magdy Avelar MD - When: 1 - 2 days - Reason: Recheck today's complaints, Re-evaluation by your physician Discharge Instructions: - Discharge Summary Sheet ry - Nonspecific Chest Pain, Adult ry - Chest Wall Pain ry - Schizophrenia ry - Chest Wall Pain, Hdjk-kh-Uhzp ry - Nonspecific Chest Pain, Adult, Mqsd-op-Vqti ry - Aspirin and Your Heart ry - Supporting Someone With Schizophrenia ry - Managing Schizophrenia ry Forms: - Medication Reconciliation Form ry - Antibiotic Education ry - Prescription Opioid Use ry - Patient Portal Instructions ry - Leadership Thank You Letter ry Signatures: Pascual Lundy MD MD ry
--- NOTE | 2023-11-26 15:38 | ER ---
Nurse's Notes [facility] Name: Davida oHdges Age: 48 yrs Sex: Female : 1975 Arrival Date: 11/26/2023 Time: 15:13 Bed IW5 Private MD: Diagnosis: Chest pain, unspecified;Schizophrenia, unspecified - Family history:: not pertinent. Assessment: 11/25 15:37 Reassessment: pt left ER before triage. mb9 ED Course: 15:14 Patient arrived in ED. mr 15:17 Pascual Lundy MD is Attending Physician. [facility] 15:34 Mgady Avelar MD is Referral Physician. [facility] 15:37 No provider procedures requiring assistance completed. Patient did not have IV access mb9 during this emergency room visit. Administered Medications: No medications were administered Outcome: 15:34 Discharge ordered by . [facility] 15:37 Discharged to pt left ER before triage or discharge mb9 15:37 Condition: stable 15:38 Patient left the ED. mb9 Signatures: Pascual Lundy MD MD cha Rivera, Mary, Reg Reg Yanira Rose, RN RN mb9
== END 2023-11-26 15:38 | disposition home or self-care (01) ==
LOC: ER 15:13
DX: R07.89 Other chest pain (principal); F20.9 Schizophrenia, unspecified

== ENCOUNTER 2023-12-05 12:17 | Emergency (ER) | payer SELFPAY ==
--- OUTSIDE RECORDS SUMMARY | 2023-12-05 12:26 | XMS REPORT | Continuity of Care Document ---
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 Henry Contreras 2023-10-04 15:25:52 2023-10-04 15:25:52 Outpatient SFA [facility] [id number] Henry Contreras 2023-10-01 00:00:00 2023-10-01 00:00:00 Indio Vidal [facility] 1.2.840.114 350.1.13.10 4.2.7.2.686 [id number] [facility] 2023-09-16 16:03:08 2023-09-16 16:03:08 Outpatient SFA [facility] [id number] Henry Contreras 2023-08-01 10:00:49 2023-08-01 10:00:49 Outpatient [facility] [id number] Henry F Ben 2023-07-23 14:20:00 2023-07-23 16:57:02 Outpatient R INDIO PHELANLinda INDIO [facility] [id number] [facility] 2023-07-23 14:20:00 2023-07-23 16:57:02 Office Visit TapanIndio see Iron [facility]ENCIO ROSENBERG?[facility] 1..840.114 350.1.13.10 4.2.7.2.686 [id number] [facility] 2023-07-23 00:00:00 2023-07-23 00:00:00 Orders Only Doctor Unassigned, Ladson [facility] 1.840.114 350.1.13.10 4.2.7.2.686 [id number] [facility] 2023-07-04 16:48:23 2023-07-04 16:48:23 Outpatient [facility] [id number] Henry Contreras 2023-06-18 10:35:36 2023-06-18 10:35:36 Outpatient [facility] [id number] Henry Quiles Ben 2023-06-05 00:00:00 2023-06-05 00:00:00 Orders Only Doctor Unassigned, Ladson [facility] 1.840.114 350.1.13.10 4.2.7.2.686 [id number] [facility] 2023-06-04 16:00:39 2023-06-04 16:00:39 Outpatient [facility] [id number] Henry Contreras 2023-05-24 15:38:52 2023-05-24 15:38:52 Outpatient [facility] [id number] Henry Quiles Ben 2023-05-22 00:00:00 2023-05-22 00:00:00 Letter (Out) Neurology [facility] 1..840.114 350.1.13.10 4.2.7.2.686 [id number] [facility] 2023-05-20 00:00:00 2023-05-20 00:00:00 Orders Only Doctor Unassigned, Ladson [facility] 1.2.840.114 350.1.13.10 4.2.7.2.686 [id number] [facility] 2023-05-17 15:07:14 2023-05-17 15:07:14 Outpatient [facility] [id number] Henry Quiles [place] 2023-03-02 12:27:43 2023-03-02 12:27:43 Outpatient [facility] [id number] Henry Quiles [place] 2023-01-09 17:11:26 2023-01-09 17:11:26 Outpatient [facility] [id number] Henry Quiles [place] 2022-11-04 14:04:00 2022-11-05 11:09:00 Emergency E JESS PAIGE [facility] [id number] [facility] 2022-09-24 12:33:00 2022-09-24 12:51:00 Emergency Heri Snow [facility] 1.2.840.114 350.1.13.10 4.2.7.2.686 [id number] [facility] 2022-09-22 00:00:00 2022-09-22 00:00:00 Nurse Triage Madhavi Mcginnis [facility] 1.2.840.114 350.1.13.10 4.2.7.2.686 [id number] [facility] 2022-09-18 10:09:00 2022-09-19 14:28:00 Inpatient EM Marly Mendenhall [facility] [id number] [facility] 2022-09-16 22:50:00 2022-09-17 01:40:00 Emergency EM Guero Asim [facility] FABI [id number] [facility] 2022-09-14 14:52:00 2022-09-15 14:00:00 Inpatient EM Vladimir Forbes [facility] TELE [id number] [facility] 2022-09-13 09:34:00 2022-09-13 13:00:00 Emergency EM Brad Woodall [facility] [id number] [facility] 2022-09-10 23:39:00 2022-09-11 11:28:00 Emergency EM Russel Sewell [facility] [id number] [facility] 2022-09-10 18:57:00 2022-09-10 20:20:00 Emergency Shelbie, Lisa Ainsley [facility] 1..840.114 350.1.13.10 4.2.7.2.686 [id number] [facility] 2022-09-10 18:57:00 2022-09-10 20:20:00 Emergency X SANDRITA KEY [facility] ERT [id number] [facility] 2022-09-09 20:45:00 2022-09-09 22:46:00 Emergency X SANDRITA KEY [facility] ERT [id number] [facility] 2022-09-09 20:45:00 2022-09-09 22:46:00 Emergency Sandrita [facility] 1..840.114 350.1.13.10 4.2.7.2.686 [id number] [facility] 2022-09-06 18:09:00 2022-09-07 00:51:00 Emergency X TAYO BOYD [facility] ERT [id number] [facility] 2022-09-06 18:09:00 2022-09-07 00:51:00 Emergency Tayo Boyd [facility] 1..840.114 350.1.13.10 4.2.7.2.686 [id number] [facility] 2022-08-21 14:11:33 2022-08-21 14:11:33 Outpatient [facility] [id number] Henry Contreras 2022-07-17 15:03:48 2022-07-17 15:03:48 Outpatient [facility] [id number] Henry Contreras 2021-10-02 15:56:00 2021-10-02 19:00:00 Emergency X JAVED FRANK [facility] ERT [id number] [facility] 2021-10-02 15:56:00 2021-10-02 19:00:00 Emergency Javed Frank [facility] 1.2.840.114 350.1.13.10 4.2.7.2.686 [id number] [facility] 2021-05-05 13:22:00 2021-05-05 14:48:00 Emergency X DEON NUNEZ [facility] ERT [id number] [facility] 2021-05-05 13:22:00 2021-05-05 14:48:00 Emergency Nunez Deon [facility] 1.2.840.114 350.1.13.10 4.2.7.2.686 [id number] [facility] 2021-05-05 00:00:00 2021-05-05 00:00:00 Orders Only Doctor Unassigned, Ladson [facility] 1.2.840.114 350.1.13.10 4.2.7.2.686 [id number] [facility] 2019-12-15 17:11:56 2019-12-15 18:04:00 Emergency Kp Gilliland [facility] 1.2.840.114 350.1.13.10 4.2.7.2.686 [id number] 2019-12-15 17:11:56 2019-12-15 18:04:00 Emergency Kp Gilliland [facility] 1.2.840.114 350.1.13.10 4.2.7.2.686 [id number] [facility] 2019-12-15 17:11:56 2019-12-15 17:11:56 Emergency X Kp GILLILAND [facility] ERT [id number] [facility] 2019-10-25 18:31:31 2019-10-25 19:21:00 Emergency Kristin Miller [facility] 1.2.840.114 350.1.13.10 4.2.7.2.686 [id number] 2019-10-25 18:31:31 2019-10-25 19:21:00 Emergency Kristin Miller [facility] 1.2.840.114 350.1.13.10 4.2.7.2.686 [id number] [facility] 2019-10-25 18:31:31 2019-10-25 18:31:31 Emergency X KRISTIN MILLER [facility] ERT [id number] [facility] 2019-08-13 13:30:00 2019-08-13 14:36:00 Emergency Floridalma Evans [facility] 1.2.840.114 350.1.13.10 4.2.7.2.686 [id number] 2019-08-13 13:30:00 2019-08-13 14:36:00 Emergency Floridalma Evans [facility] 1.2.840.114 350.1.13.10 4.2.7.2.686 [id number] [facility] 2019-08-13 13:30:00 2019-08-13 14:36:00 Emergency X FLORIDALMA EVANS [facility] ERT [id number] [facility] 2019-07-22 13:42:11 2019-07-22 19:02:00 Emergency Unknown, Attending Lisa Morfin [facility] 1.2.840.114 350.1.13.10 4.2.7.2.686 [id number] 2019-07-22 13:42:11 2019-07-22 19:02:00 Emergency X LISA MORFIN [facility] ERT [id number] [facility] 2019-07-22 13:42:11 2019-07-22 19:02:00 Emergency Unknown, Attending Lisa Morfin S [facility] 1.2.840.114 350.1.13.10 4.2.7.2.686 [id number] [facility] 2019-07-13 20:17:19 2019-07-13 21:48:00 Emergency X HENRY OWEN [facility] ERT [id number] [facility] 2019-07-13 20:17:19 2019-07-13 21:48:00 Emergency Henry Owen [facility] 1.2.840.114 350.1.13.10 4.2.7.2.686 [id number] [facility] 2019-07-10 14:26:03 2019-07-10 16:33:00 Emergency X DEBBIE PAYTON [facility] ERT [id number] [facility] 2019-07-10 14:26:03 2019-07-10 16:33:00 Emergency Debbie Payton [facility] 1.2.840.114 350.1.13.10 4.2.7.2.686 [id number] [facility] 2019-07-04 19:09:02 2019-07-04 22:51:00 Emergency X LISA MORFIN [facility] ERT [id number] [facility] 2019-06-30 10:33:08 2019-06-30 13:10:00 Emergency X DEON NUNEZ [facility] ERT [id number] [facility] 2019-05-25 11:58:19 2019-05-25 15:37:00 Emergency X DEON NUNEZ [facility] ERT [id number] [facility] 2019-04-09 22:29:37 2019-04-09 23:28:00 Emergency X FLORIDALMA EVANS [facility] ERT [id number] [facility] 2019-01-21 18:38:01 2019-01-21 19:59:00 Emergency Le Ramirez [facility] 1.2.840.114 350.1.13.10 4.2.7.2.686 [id number] 2019-01-21 18:38:01 2019-01-21 19:59:00 Emergency Le Ramirez [facility] 1.2.840.114 350.1.13.10 4.2.7.2.686 [id number] [facility] Results Test Description Test Time Test Comments Results Result Co mments Source T3 [id number] 04:20:00* Test Item Value Reference Range Interpretation Comme nts T3UP (test code = T3UP) 40.9 % 23.5-40.5 H Thyroxine (T4) free index in Serum or [id number] 04:19:00* Test Item Value Reference Range Interpretation Comme nts Thyroxine (T4) free index in Serum or Plasma (test code = 44000-8) 1.05 ng/dL 0.78-2.19 [facility])Thyroid hormone uptake (T-uptake) in Serum or P 2023-11-24 04:18:00* Test Item Value Reference Range Interpretation Comme nts Thyroid hormone uptake (T-up take) in Serum or Plasma (test code = 22463-0) 40.9 % 23.5-40.5 H [facility])URINE DRUG [id number] 00:43:00* Test Item Value Reference Range Interpretation [...] abuse 5 panel - Urine by Screen [id number] 00:40:00 NegativeNegativeNegativeNegativeNegative[facility][id number] 00:33:00* Test Item Value Reference Range Interpretation [...] /HPF 0-2 Urinalysis panel - Urine by [id number] 00:33:00* Test Item Value Reference Range Interpretation Comme nts Ketones [Presence] in Urine (test code = 61843-0) 15 MG/DL NEG N pH of Urine (test code = 2756-5) 5.5 1 5.0-7.5 N Urobilinogen [Presence] in U rine (test code = 81217-6) 0.2 EU/DL 0.2-1.0 N Specific gravity of Urine (t est code = 2965-2) 1.013 1 1.0-1.025 N Leukocytes [Presence] in Uri ne sediment by Light microscopy (test code = 67674-1) 10 /HPF 0.0-5.0 H Erythrocytes [Presence] in U rine sediment by Light microscopy (test code = 75372-0) 2 /HPF 0.0-2.0 [facility])VITAMIN [id number] 22:47:00* Test Item Value Reference Range Interpretation Comme nts B12 (test code = B12) 880 pg/mL 239-931 [id number] 22:47:00* Test Item Value Reference Range Interpretation Comme nts FOLATE (test code = FOLATE) 8.9 ng/mL 2.76-20.0 THYROID STIMULATION [id number] 22:47:00* Test Item Value Reference Range Interpretation Comme nts TSH (test code = TSH) 6.62 UIU/ML 0.465-4.68 H Cobalamin (Vitamin B12) [Mass/volume] in [id number] 22:47:00* Test Item Value Reference Range Interpretation Comme nts Cobalamin (Vitamin B12) [Mass/volume] in Serum or Plasma (test code = 2132-9) 880 pg/mL 239.0-931.0 [facility])Folate [Mass/volume] in Serum or [id number] 22:47:00* Test Item Value Reference Range Interpretation Comme nts Folate [Mass/volume] in Seru m or Plasma (test code = 2284-8) 8.9 ng/mL 2.76-20.0 [facility])Thyrotropin in Serum or [id number] 22:47:00* Test Item Value Reference Range Interpretation Comme nts Thyrotropin in Serum or Plas ma (test code = 47532-2) 6.62 UIU/ML 0.465-4.68 [facility] / 22:46:00* Test Item Value Reference Range Interpretation Comme nts HIV 1/2 AB (test code = SCRN HIV) NEGATIVE NEGATIVE This test is us ed for SCREENING purposes only. All reactive results are prelimenary and confirmation results will follow. HIV 1+2 Ab [Units/volume] in Ebuzn0831-26-58 22:45:[facility]HEPATITIS C ANTIBODY [id number] 22:28:00* Test Item Value Reference Range Interpretation Comme [facility] SCRN HCV (test code = SCRN HCV) NEGATIVE NEGATIVE Hepatitis C Anti body test is for screening purposes only. All reactives will be confirmed by additional testing. Hepatitis C virus Ab [Presence] in Hbdwx2173-98-07 22:27:00[facility])B-HCG QUAL (KIT)2023-11-23 22:01:00* Test Item Value Reference Range Interpretation Comme [facility] HCGQUAL (test code = HCGQUAL) NEGATIVE NEGATIVE URINE: NEGATIVE = < 20 mIU/ML; POSITIVE= >/= 20 mIU/ML SERUM: NEGATIVE = < 10 mIU/ML; POSITIVE= >/= 10 mIU/ML SOURCE (test code = SOURCE) SERUM HCG INTERNAL POSITIVE CNTRL (test code = HCGIPC) PASS PASS HCG LOT # (test code = UHCGLOT) [id number] HCG EXPIRATION DATE (test code = UHCGEXP) Choriogonadotropin.beta subunit ( bvwp7761-07-81 22:01:00* Test Item Value Reference Range Interpretation Comme [facility] Specimen source [Identifier] of Body fluid (test code = 08433-0) SERUM N Reagent Lot number (test cod e = 31029-8) 1 N [facility])CT HEAD W/O [id number] 22:00:00 [facility] 1975 Sex: F[address] [id number] IMAGING REPORTPatient Name: ROBERT, CONCEPTIONDate of Service: [id number]: 48 Sex: F Order #: [id number] Room: ERSDOB: 1975 X-Ray Number: [id number] Record Number: [id number] Hospital Number: [id number] Physician: LAWRENCE MEJIASOrdering Physician: LAWRENCE MEJIASPROCEDURE: CTHEAD W/O CONTINDICATIONS: dx: psych evalorder sts: r/o [...] 21:59:03CT Head and Orbit - bilateral WO [id number] 21:59:03 ORDER 1400: CT HEAD W/O CONT (LOINC: 45865-0)ORDER DATE: November 24, 2023 12:50:00 AM [facility]CT ABDOMEN/PELVIS [id number] 21:54:00 [facility] : 1975 Sex: F[address] [id number] IMAGING REPORTPatient Name: JONES CONCEPTIONDate of Service: 36-51-5564Pyw: 48 Sex: F Order #: [id number] Room: ERSDOB: 1975 X-Ray Number: [id number] Record Number: [id number] Hospital Number: [id number] Physician: LAWRENCE MEJIASOrdering Physician: LAWRENCE MEJIASPROCEDURE: CT [...] YUNIOR MCKEON 2023-11-23 21:53:03 CT Abdomen and [id number] 21:53:03ORDER 1500: CT ABDOMEN/PELVIS WITHOUT (LOINC: 85694-7)ORDER DATE: November 24, 2023 12:50:00 AM [facility]2024-06-01 21:31:00* Test Item Value Reference Range Interpretation [...] 70-99 Fasting glucos e normal <100 MG/DL- [place] [place] recommendation CALCIUM (test code = [...] of age is not validated by the product engineer and may not represent the patients true [...] should be used in the calculation". CREATINE [id number] 21:31:00* Test Item Value Reference Range Interpretation Comme nts CK (test code = CK) 115 U/L 30-135 BLOOD ALCOHOL (ETOH)2023-11-23 21:31:00* Test Item Value Reference Range Interpretation Comme nts ALCOHOL BLOOD LEVEL (test code = ALC BLD) <10 MG/DL 0-10 Results ar e to be used for medical purposes (treatment) only. Not intended for non medical purposes. Ethanol [Mass/volume] in [id number] 21:30:00* Test Item Value Reference Range Interpretation Comme nts Ethanol [Mass/volume] in Blo od (test code = 5640-8) <10 0.0-10.0 N [facility]Creatine kinase isoenzymes [interpretation] in 2023-11-23 21:30:00* Test Item Value Reference Range Interpretation Comme nts Creatine kinase isoenzymes [interpretation] in Serum or Plasma Narrative (test code = 19731-3) 115 U/L 30.0-135.0 N [facility])Comprehensive metabolic 2000 panel - Serum or P 2023-11-23 21:27:00* Test Item Value Reference Range Interpretation Comme nts Sodium [Moles/volume] in Blood (test code = 2947-0) 137 MMOL/L 137.0-145.0 N Potassium [Moles/volume] in Blood (test code = 6298-4) 4.2 MMOL/L 3.5-5.1 N Chloride [Moles/volume] in Blood (test code = 2069-3) 100 MMOL/L 98.0-107.0 N Carbon dioxide, total [Moles/volume] in Blood (test code = 47948-1) 24 MMOL/L 22.0-30.0 N Urea nitrogen [Mass/volume] in Serum or Plasma (test code = 3094-0) 16 MG/DL 7.0-17.0 N Creatinine [Mass/volume] in Blood (test code = 82970-4) 0.6 MG/DL 0.7-1.2 L Glucose [Mass/volume] in Blood (test code = 2339-0) 80 MG/DL 70.0-99.0 N Calcium [Mass/volume] in Serum or Plasma (test code = 84768-0) 10.3 MG/DL 8.4-10.2 H Protein [Mass/volume] in Serum or Plasma (test code = 2885-2) 9.9 G/DL 6.3-8.2 H Albumin [Presence] in Serum or Plasma (test code = 08207-9) 4.7 G/DL 3.5-5.0 N Bilirubin direct and total panel [Mass/volume] - Serum or Plasma (test code = 07305-1) 0.8 MG/DL 0.2-1.3 N Aspartate aminotransferase [Enzymatic [...] 50 percent [- Reported] (test code = 70620-0) 113.0 mL/min/1.73m2 N Anion gap in Serum or Plasma (test code = 52228-8) 13 mmol/L 4.0-12.0 [facility])[id number] 21:15:00* Test Item Value Reference Range Interpretation [...] 1.2-7.2 CBC W Auto Differential panel - [id number] 21:15:00* Test Item Value Reference Range Interpretation Comme nts Leukocytes other [Identifier ] in Blood by Automated count (test code = 04583-7) 4.5 K/UL 3.5-10.9 N Erythrocytes [#/volume] in B lood (test code = 09197-5) 4.91 M/UL 4.0-5.0 N Hemoglobin A/Hemoglobin.tota l in Blood (test code = 4546-8) 13.8 G/DL 11.5-15.5 N Hematocrit [Volume Fraction] of Blood (test code = 20931-9) 42.4 % 34.0-46.0 N Erythrocyte mean corpuscular volume [Entitic volume] (test code = 82898-2) 86.4 FL 80.0-98.0 N Erythrocyte mean corpuscular hemoglobin [Entitic mass] (test code = 14662-5) 28.1 PG 28.0-32.0 N Erythrocyte mean corpuscular hemoglobin concentration [Mass/volume] (test code = 76184-2) 32.5 G/DL 32.5-36.5 N Erythrocyte distribution wid th [Ratio] (test code = 71321-4) 14.9 % 11.5-14.5 H Platelets panel - Blood by Automated count (test code = 98105-7) 124 K/UL 150.0-450.0 L Platelet mean volume [Entiti c volume] in Blood by Automated count (test code = 69074-1) 10.0 FL 7.4-10.4 N Neutrophils.segmented/100 leukocytes in Blood (test code = 29898-5) 53.3 % 40.0-75.0 N Lymphocytes Variant/100 leuk ocytes in Blood (test code = 26151-3) 33.9 % 24.0-44.0 N Lymphocytes+Monocytes/100 leukocytes in Blood (test code = 4662-3) 10.0 % 0.0-13.0 N Eosinophils [#/volume] in Bl ood (test code = 81649-4) 2.2 % 0.0-4.0 N Basophils [#/volume] in Bloo d (test code = 15972-8) 0.4 % 0.0-2.0 N Immature granulocytes/100 leukocytes in Blood (test code = 33849-6) 0.2 % 0.0-1.0 N Nucleated erythrocytes [#/vo lume] in Blood (test code = 00861-5) 0 /100 WBC N Neutrophils [#/volume] in Bl ood (test code = 46008-3) 2.4 K/UL 1.2-7.2 N [facility] ([place])PAP TEST, THINPREP, [id number] 16:02:24* Test Item Value Reference Range Interpretation Comme nts SOURCE: (test code = 8001) Cervical/Endoce rvical SLIDES: (test code = 8011) 1 LMP: (test code = 8021) SEE NOTE POST MENOPAUSAL SPECIMEN ADEQUACY: (test code = 99176) (NOTE) Satisfactory for evaluation. Endocervical cells/transformation zone component present. INTERPRETATION: (test code = 47650) NILM/NO EPITH. ABNORMALITY;SEE BELOW --- - NEGATIVE FOR INTRAEPITHELIAL LESION OR MALIGNANCY (NILM) ---- SUPERVISOR BRAKE REPAIR : (test code = 8101) Jami Smalls LOCATION: (test code = 49226) (NOTE) Specimens proces sed and interpreted at [facility], [address] [facility] [place] [address], , CLIA: [id number] CPT: (test code = 8140) (NOTE) 74544 UNLESS OTH ERWISE INDICATED, COMPUTER AIDED AND SUPERVISOR BRAKE REPAIR SCREENING PERFORMED. The Pap test is a screening test with an inherent, but low probability of error. Your patient should be reminded to consult you immediately if she experiences any suspicious signs or symptoms, regardless of her Pap test result. An alternate report format containing images or consolidated prior Pap history is available as applicable. HPV HIGH RISK WITH GENOTYPE, [id number] 15:53:52* Test Item Value Reference Range Interpretation Comme nts HPV HIGH RISK INTERP (test code = 27138) NEGATIVE NEGATIVE HPV 16 (test code = 05593) NEGATIVE HPV 18 (test code = 08388) NEGATIVE HPV, HR, OTHER GENOTYPES (test code = 31209) NEGATIVE Testing methodol ogy is real-time PCR utilizing hydrolysis probes with the [employer] system. The test individually detects genotypes 16 and 18, as well as the other 12 high risk types (31,33,35,39,45,51,52,56 ,58,59,66,68). The expected result is negative. A negative result does not rule out the presence of HPV not included in the genotype set, a low level of infection or specimen sampling error. UNLESS OTHERWISE INDICATED, ALL TESTING PERFORMED AT [facility] [address] [place] [address] REPAIR WELDER: JATIN FELIPE M.D. CLIA NUMBER [id number] [facility] [place]. [id number] HPV HIGH RISK WITH GENOTYPE, [id number] 00:00:00* Test Item Value Reference Range Interpretation Comme nts HPV HIGH RISK INTERP (test c ode = 90371) NEGATIVE HPV 16 (test code = 53586) NEGATIVE HPV 18 (test code = 25742) NEGATIVE HPV, HR, OTHER GENOTYPES (te st code = 19207) NEGATIVE PDFE (test code = PDFReport) PDF Henry ContrerasPAP TEST, THINPREP, [id number] 00:00:00* Test Item Value Reference Range Interpretation Comme nts SOURCE: (test code = 8001) Cervical/Endocervical SLIDES: (test code = 8011) 1 LMP: (test code = 8021) SEE NOTE SPECIMEN ADEQUACY: (test code = 64603) (NOTE) INTERPRETATION: (test code = 18225) NILM/NO EPITH. ABNORMALITY;SEE BELOW SUPERVISOR BRAKE REPAIR: (test code = 8101) Jami Smalls LOCATION: (test code = 62818) (NOTE) CPT: (test code = 8140) (NOTE) Hnery Quiles AustinHPV HIGH RISK WITH GENOTYPE, [id number] 00:00:00* Test Item Value Reference Range Interpretation Comme nts HPV HIGH RISK INTERP (test c ode = 18812) NEGATIVE HPV 16 (test code = 62074) NEGATIVE HPV 18 (test code = 92085) NEGATIVE HPV, HR, OTHER GENOTYPES (te st code = 86428) NEGATIVE PDFE (test code = PDFReport) PDF Henry Quiles AustinPAP TEST, THINPREP, [id number] 00:00:00* Test Item Value Reference Range Interpretation Comme nts SOURCE: (test code = 8001) Cervical/Endocervical SLIDES: (test code = 8011) 1 LMP: (test code = 8021) SEE NOTE SPECIMEN ADEQUACY: (test code = 62657) (NOTE) INTERPRETATION: (test code = 46880) NILM/NO EPITH. ABNORMALITY;SEE BELOW SUPERVISOR BRAKE REPAIR: (test code = 8101) Jami Smalls LOCATION: (test code = 53149) (NOTE) CPT: (test code = 8140) (NOTE) Henry ContrerasPAP TEST, THINPREP, IMAGED [ADDED]2023-10-10 00:00:00* Test Item Value Reference Range Interpretation Comme nts SOURCE: (test code = 8001) Unspecified SLIDES: (test code = 8011) 2 LMP: (test code = 8021) NOT GIVEN SPECIMEN ADEQUACY: (test code = 31347) (NOTE) INTERPRETATION: (test code = 12979) UNSATISFACTORY; SEE BELOW OTHER COMMENTS: (test code = 8081) (NOTE) SUPERVISOR BRAKE REPAIR: (test code = 8101) Jose Bustillos TECHNOLOGIST: (test code = 8111) [email or web address]ASCP),[facility] LOCATION: (test code = 12568) (NOTE) CPT: (test code = 8140) (NOTE) Henry ContrerasHPV HIGH RISK IF ASC/LSIL, THINPREP [ADDED]2023-10-10 00:00:00* Test Item Value Reference Range Interpretation Comme nts HPV HIGH RISK IF ASC/LSIL, THINPREP (test code = 77049) CRITERIA NOT MET Henry Quiles AustinPAP TEST, THINPREP, IMAGED [ADDED]2023-10-10 00:00:00* Test Item Value Reference Range Interpretation Comme nts SOURCE: (test code = 8001) Unspecified SLIDES: (test code = 8011) 2 LMP: (test code = 8021) NOT GIVEN SPECIMEN ADEQUACY: (test code = 18511) (NOTE) INTERPRETATION: (test code = 89139) UNSATISFACTORY; SEE BELOW OTHER COMMENTS: (test code = 8081) (NOTE) SUPERVISOR BRAKE REPAIR: (test code = 8101) Jose Bustillos QC TECHNOLOGIST: (test code = 8111) Jason Whitman,[facility] [[email or web address]ASCP),[facility] LOCATION: (test code = 17036) (NOTE) CPT: (test code = 8140) (NOTE) Henry Quiles AustinHPV HIGH RISK IF ASC/LSIL, THINPREP [ADDED]2023-10-10 00:00:00* Test Item Value Reference Range Interpretation Comme nts HPV HIGH RISK IF ASC/LSIL, THINPREP (test code = 96299) CRITERIA NOT MET Henry Quiles AustinGONORRHEA, NAAT, THINPREP [ADDED]2023-10-08 00:00:00* Test Item Value Reference Range Interpretation Comme nts GONORRHEA, NAAT, THINPREP (t est code = 25812) NEGATIVE Henry Quiles AustinCHLAMYDIA, NAAT, THINPREP [ADDED]2023-10-08 00:00:00* Test Item Value Reference Range Interpretation Comme nts CHLAMYDIA, NAAT, THINPREP (t est code = 47265) NEGATIVE PDFE (test code = PDFReport) PDF Henry Quiles AustinGONORRHEA, NAAT, THINPREP [ADDED]2023-10-08 00:00:00* Test Item Value Reference Range Interpretation Comme nts GONORRHEA, NAAT, THINPREP (t est code = 59739) NEGATIVE Henry Quiles AustinCHLAMYDIA, NAAT, THINPREP [ADDED]2023-10-08 00:00:00* Test Item Value Reference Range Interpretation Comme nts CHLAMYDIA, NAAT, THINPREP (t est code = 45426) NEGATIVE PDFE (test code = PDFReport) PDF Henry Griffin, THIRD [id number] 08:14:44* Test Item Value Reference Range Interpretation Comme nts TSH, THIRD GENERATION (test code = 2821) 5.200 UIU/ML 0.400-4.100 H UNLESS OTHERWISE INDICATED, ALL TESTING PERFORMED AT [facility] [address] [place] [address] REPAIR WELDER: JATIN FELIPE M.D. IA NUMBER [id number] [facility] [place]. [id number] 00:00:00* Test Item Value Reference Range Interpretation Comme nts TSH, THIRD GENERATION (test code = 2821) 5.200 UIU/ML Henry [id number] 00:00:00* Test Item Value Reference Range Interpretation Comme nts TSH, THIRD GENERATION (test code = 2821) 5.200 UIU/ML Henry Griffin THIRD [id number] 23:53:27* Test Item Value Reference Range Interpretation Comme nts TSH, THIRD GENERATION (test code = 2821) 11.100 UIU/ML 0.400-4.100 H COMPREHENSIVE METABOLIC [id number] 23:46:03* Test Item Value Reference Range Interpretation Comme nts GLUCOSE (test code = 2217) 97 MG/DL 70-99 BUN (test code = 2208) 7 MG/DL 6-20 CREATININE (test code = 2214) 0.61 MG/DL 0.60-1.30 eGFR (2020 CKD-EPI) (test code = 39533) 110 ML/MIN/1.73 >60 CALC BUN/CREAT (test code [...] 13 U/L 5-40 CBC W/AUTO DIFF WITH [id number] 08:48:44* Test Item Value Reference Range Interpretation [...] 0.00-0.10 ABS NUCLEATED RBCS (test code = 10223) 0.00 K/UL 0.00-0.11 UNLESS OTHER MONTOYA INDICATED, ALL TESTING PERFORMED AT [facility] [address] [place] [address] REPAIR WELDER: JATIN FELIPE M.D. CLIA NUMBER [id number] [facility] [place]. [id number] 00:00:00* Test Item Value Reference Range Interpretation Comme nts TSH, THIRD GENERATION (test code = 2821) 11.100 UIU/ML Henry Qu[facility] W/AUTO [id number] 00:00:00* Test Item Value Reference Range Interpretation [...] ABS NUCLEATED RBCS (test cod e = 89655) 0.00 K/UL Henry ContrerasCOMPREHENSIVE METABOLIC [id number] 00:00:00* Test Item Value Reference Range Interpretation Comme nts GLUCOSE (test code = 2217) 97 MG/DL BUN (test code = 2208) 7 MG/DL CREATININE (test code = 2214) 0.61 MG/DL eGFR (2020 CKD-EPI) (test code = 21057) 110 ML/MIN/1.73 CALC BUN/CREAT (test code = [...] (test code = 2219) 13 U/L Henry [id number] 00:00:00* Test Item Value Reference Range Interpretation Comme nts TSH, THIRD GENERATION (test code = 2821) 11.100 UIU/ML Henry ContrerasCBC W/AUTO [id number] 00:00:00* Test Item Value Reference Range Interpretation [...] ABS NUCLEATED RBCS (test cod e = 68870) 0.00 K/UL Henry ContrerasCOMPREHENSIVE METABOLIC [id number] 00:00:00* Test Item Value Reference Range Interpretation Comme nts GLUCOSE (test code = 2217) 97 MG/DL BUN (test code = 2208) 7 MG/DL CREATININE (test code = 2214) 0.61 MG/DL eGFR (2020 CKD-EPI) (test code = 65373) 110 ML/MIN/1.73 CALC BUN/CREAT (test code = [...] (test code = 2219) 13 U/L Henry [id number] 01:13:06* Test Item Value Reference Range Interpretation Comme nts TRANSFERRIN (test code = 4936) 315 MG/DL 200-360 UNLESS OTHERWISE INDICATED, ALL TESTING PERFORMED AT [facility] [address] [place] [address] REPAIR WELDER: JATIN FELIPE M.D. IA NUMBER [id number] [facility] [place]. [id number] LIPID [id number] 01:12:48* Test Item Value Reference Range Interpretation [...] SPECIMENS. FOR MOREINFORMATION, SEE CLIENT ANNOUNCEMENT AT [email or web address] RISK RATIO LDL/HDL (test code = 2238) 1.34 RATIO <3.22 COMPREHENSIVE METABOLIC [id number] 01:12:48* Test Item Value Reference Range Interpretation Comme nts GLUCOSE (test code = 2217) 92 MG/DL 70-99 BUN (test code = 2208) 15 MG/DL 6-20 CREATININE (test code = 2214) 0.65 MG/DL 0.60-1.30 eGFR (2020 CKD-EPI) (test code = 20276) 108 ML/MIN/1.73 >60 CALC BUN/CREAT (test code [...] IRON BINDING CAPACITY AND IRON AND % [id number] 01:12:48* Test Item Value Reference Range Interpretation Comme nts IRON, SERUM (test code = 2221) 51 UG/DL 37-145 UNSATURATED IBC (test code = 21888) 356 UG/DL 112-347 H CALC TOTAL IBC (test code = 2076) 407 UG/DL 250-450 CALC % IRON SAT (test code = 2078) 13 % 20-50 L [id number] 00:59:24* Test Item Value Reference Range Interpretation Comme nts FERRITIN (test code = 2074) 20 NG/ML 13-200 LIPID [id number] 00:00:00* Test Item Value Reference Range Interpretation Comme nts CHOLESTEROL (test code = 2210) 191 MG/DL TRIGLYCERIDES (test code = 2232) 89 MG/DL HDL CHOLESTEROL (test code = 2220) 74 MG/DL CALC LDL CHOL (test code = 2237) 99 MG/DL RISK RATIO LDL/HDL (test cod e = 2238) 1.34 RATIO Henry F BenCOMPREHENSIVE METABOLIC [id number] 00:00:00* Test Item Value Reference Range Interpretation Comme nts GLUCOSE (test code = 7) 92 MG/DL BUN (test code = 8) 15 MG/DL CREATININE (test code = 2214) 0.65 MG/DL eGFR (2020 CKD-EPI) (test code = ) 108 ML/MIN/1.73 CALC BUN/CREAT (test code = 5) 23 RATIO SODIUM (test code = 223) 135 MEQ/L POTASSIUM (test code = 2228) 4.2 MEQ/L CHLORIDE (test code = 2215) 99 MEQ/L CARBON DIOXIDE (test code = 220) 24 MEQ/L CALCIUM (test code = 2209) 9.8 MG/DL PROTEIN, TOTAL (test code = [...] ContrerasIRON BINDING CAPACITY AND IRON AND % [id number] 00:00:00* Test Item Value Reference Range Interpretation Comme nts IRON, SERUM (test code = 2221) 51 UG/DL UNSATURATED IBC (test code = ) 356 UG/DL CALC TOTAL IBC (test code = 2076) 407 UG/DL CALC % IRON SAT (test code = 2078) 13 % Henry [id number] 00:00:00* Test Item Value Reference Range Interpretation Comme nts FERRITIN (test code = 2074) 20 NG/ML Henry Quiles [id number] 00:00:00* Test Item Value Reference Range Interpretation Comme nts TRANSFERRIN (test code = 4936) 315 MG/DL Henry Quiles AustinLIPID [id number] 00:00:00* Test Item Value Reference Range Interpretation Comme nts CHOLESTEROL (test code = 2210) 191 MG/DL TRIGLYCERIDES (test code = 2232) 89 MG/DL HDL CHOLESTEROL (test code = 0) 74 MG/DL CALC LDL CHOL (test code = 7) 99 MG/DL RISK RATIO LDL/HDL (test cod e = 2238) 1.34 RATIO Henry Quiles BenCOMPREHENSIVE METABOLIC [id number] 00:00:00* Test Item Value Reference Range Interpretation Comme nts GLUCOSE (test code = 2216) 92 MG/DL BUN (test code = 2207) 15 MG/DL CREATININE (test code = 4) 0.65 MG/DL eGFR (2020 CKD-EPI) (test code = ) 108 ML/MIN/1.73 CALC BUN/CREAT (test code = 2234) 23 RATIO SODIUM (test code = 223) 135 MEQ/L POTASSIUM (test code = 8) 4.2 MEQ/L CHLORIDE (test code = 2215) [...] 2203) 73 U/L AST (test code = 8) 15 U/L ALT (test code = 2218) 7 U/L Henry Quiles AustinIRON BINDING CAPACITY AND IRON AND % [id number] 00:00:00* Test Item Value Reference Range Interpretation Comme nts IRON, SERUM (test code = 2222) 51 UG/DL UNSATURATED IBC (test code = 45371) 356 UG/DL CALC TOTAL IBC (test code = 2076) 407 UG/DL CALC % IRON SAT (test code = 207) 13 % Henry Quiles [id number] 00:00:00* Test Item Value Reference Range Interpretation Comme nts FERRITIN (test code = 2075) 20 NG/ML Henry Quiles [id number] 00:00:00* Test Item Value Reference Range Interpretation Comme nts TRANSFERRIN (test code = 4936) 315 MG/DL Henry Quiles BenHEMOGLOBIN [id number] 03:08:40* Test Item Value Reference Range Interpretation Comme nts HEMOGLOBIN A1c (test code = 86352) 5.5 % 4.2-5.6 CBC W/AUTO DIFF WITH [id number] 02:29:36* Test Item Value Reference Range Interpretation [...] = 1065) 0.0 /100 WBC'S See_Comment [Automated [employer]] The system which generated this result [...] 0.00-0.10 ABS NUCLEATED RBCS (test code = 61973) 0.00 K/UL 0.00-0.11 CBC W/AUTO [id number] 00:00:00* Test Item Value Reference Range Interpretation [...] ABS NUCLEATED RBCS (test cod e = 25709) 0.00 K/UL Henry ContrerasHEMOGLOBIN [id number] 00:00:00* Test Item Value Reference Range Interpretation Comme nts HEMOGLOBIN A1c (test code = 86743) 5.5 % Henry ContrerasCBC W/AUTO [id number] 00:00:00* Test Item Value Reference Range Interpretation [...] ABS NUCLEATED RBCS (test cod e = 39830) 0.00 K/UL Henry ContrerasHEMOGLOBIN [id number] 00:00:00* Test Item Value Reference Range Interpretation Comme nts HEMOGLOBIN A1c (test code = 25741) 5.5 % Henry ContrerasDRUGS OF [id number] 05:03:00* Test Item Value Reference Range Interpretation [...] 200 ng/mL Opiates 300 ng/mL URINALYSIS WITH [id number] 04:56:00* Test Item Value Reference Range Interpretation [...] (test code = USPERM) /HPF NONE URINE [id number] 04:53:00* Test Item Value Reference Range Interpretation [...] the FDA and the [employer] (CAP) are more stringent than those required for this test. Therefore, the result should be interpreted with caution and close attention to other clinical and epidemiological data [id number] 16:00:00* Test Item Value Reference Range Interpretation Comme nts SALICYLATE (test code = 94B) <3.0 mg/dL 15.0-30.0 L LIVER [id number] 15:49:00* Test Item Value Reference Range Interpretation [...] code = 31A) <7 IU/L 10-49 L [id number] 15:48:00* Test Item Value Reference Range Interpretation [...] to interpret this result as normal/abnormal. 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 Old healed fractures of the distal tibia and fibular noted.Soft tissues: Unremarkable.IMPRESSION: No acute findings.Electronically signed by: Nikko Santiago MD 11/04/2022 3:10 PM CDT [id number] BEDSIDE [id number] 11:51:00* Test Item Value Reference Range Interpretation Comme nts GLUCOSE BEDSIDE TESTING (karen t code = GLUBED) 79 MG/DL 70-119 N GLUCOSE BEDSIDE [id number] 06:23:00* Test Item Value Reference Range Interpretation Comme nts GLUCOSE BEDSIDE TESTING (karen t code = GLUBED) 80 MG/DL 70-119 N BASIC METABOLIC [id number] 05:12:00* Test Item Value Reference Range Interpretation [...] 2.0 <2.0 indicates None DetectedPerformed At: [facility] [address] [id number] Kyle L MD Ph:[phone] GLUCOSE BEDSIDE [id number] 19:51:00* Test Item Value Reference Range Interpretation Comme nts GLUCOSE BEDSIDE TESTING (karen t code = GLUBED) 129 MG/DL 70-119 H OSMOLALITY [id number] 17:56:00* Test Item Value Reference Range Interpretation Comme nts OSMOLALITY SERUM (test code = OSMO) 269 mOsm/kg 275-300 L THYROID STIMULATING [id number] 17:56:00* Test Item Value Reference Range Interpretation Comme nts THYROID STIMULATING HORMONE (test code = TSH) 4.190 mc IU/ML 0.340-4.820 N GLUCOSE BEDSIDE [id number] 15:49:00* Test Item Value Reference Range Interpretation Comme nts GLUCOSE BEDSIDE TESTING (karen t code = GLUBED) 86 MG/DL 70-119 N CREATINE KINASE (CK)2022-09-18 14:33:00* Test Item Value Reference Range Interpretation Comme nts CREATINE KINASE (CK) (test c ode = CK) 145 Unit/L 26-192 N VALPROIC ACID (DEPAKENE)2022-09-18 14:26:00* Test Item Value Reference Range Interpretation Comme [facility] VALPROIC ACID (DEPAKENE) (te st code = VALP) 37.5 mcG/ML 50.0-100.0 L [id number] 14:26:00* Test Item Value Reference Range Interpretation Comme [facility] AMMONIA (test code = AMM) 29.0 mcMOL/L 11.0-32.0 N GLUCOSE BEDSIDE [id number] 11:51:00* Test Item Value Reference Range Interpretation Comme [facility] GLUCOSE BEDSIDE TESTING (karen t code = GLUBED) 88 MG/DL 70-119 N GLYCOSYLATED HEMOGLOBIN (HA1C)2022-09-18 06:53:00* Test Item Value Reference Range Interpretation Comme [facility] GLYCOSYLATED HEMOGLOBIN (HA1 C) (test code = GLYHGB) 5.2 % IS-A1C 4.5-5.6 N ESTIMATED AVERAGE [id number] 06:53:00* Test Item Value Reference Range Interpretation Comme [facility] ESTIMATED AVERAGE GLUCOSE (t est code = EAG) 103 MG/DLest LIPID PROFILE (CORONARY RISK)2022-09-18 06:53:00* Test Item Value Reference Range Interpretation Comme [facility] TRIGLYCERIDES (test code = TRIG) 83 MG/DL [...] to interpret this result as normal/abnormal. UR [id number] 21:28:00* Test Item Value Reference Range Interpretation Comme nts UR SODIUM RANDOM (test code = JESUSITA) 93 mmol/L 40-200 N UR POTASSIUM RANDOM (test code = KU) 54.8 mmol/L 25-125 N NO ESTABLISHED NORMAL RANGES FOR RANDOM SPECIMENS. UR CHLORIDE RANDOM (test code = CLU) 164 mmol/L 110-150 H UR OSMOLALITY [id number] 21:28:00* Test Item Value Reference Range Interpretation Comme nts UR OSMOLALITY RANDOM (test c ode = OSMOU) 475 mOsm/kg 100-1400 N CBC W/O [id number] 20:05:00* Test Item Value Reference Range Interpretation [...] = MPV) 9.5 fL 6.8-11.2 N LACTIC [id number] 19:35:00* Test Item Value Reference Range Interpretation Comme nts LACTIC ACID (test code = LACT) 1.0 mmol/L 0.4-2.0 N HCG SERUM [id number] 19:31:00* Test Item Value Reference Range Interpretation Comme nts HCG SERUM QUAL (test code = HCGQL) Negative SCREEN NEG - CT HEAD/BRAIN W/O [id number] 18:59:00 [facility]PC[facility] : 1975 Sex: F Patient Name: SILAS JONESPCION Unit No: [id number] EXAMS: CPT CODE: [id number] CT HEAD/BRAIN W/O CONT [id number] Location: H3 CT head, conducted on 09/17/22 at 1837 hours COMPARISON EXAMS:Head CT exam of 09/17/22 at 00:06 hours TECHNIQUE: CT examination of the brain was performed without contrast on [facility] scanner. Scanning conducted from skull base to [...] to the prior study. Midline structures appear fairlyunremarkable. No focal area of encephalomalacia. No positive mass-effect, midline shift, extra-axial fluid collections or intracranial hemorrhages seen. In particular, no subarachnoid hemorrhage is id entified. No intra or extra-axial masses. Bone windows unremarkable. No significant sinus disease is noted. No acute territorial infarction is seen. IMPRESSION: Unremarkable CT examination of the brain without contrast. No significant change from the exam acquired earlier today. Electronically Si gned by Nati Hunt M.D. on 09/17/2022 at 1859 Reported and signed by: Nati Hunt M.D. CC: Valentina Samayoa MD Dictated Date/Time: 09/17/2022 (1858) Technologist: MAAL Marie(Abner)(CT) CTDI: DLP: Trnscrpt: 09/17/2022 (1858) [email or web address] DENIZ Lugo NAME: CHIQUIMYRA Gordon[address] PHYS: Valentina Mattson [place], [place] [address] : 1975 AGE: 47 SEX: F LOC: B.ERMED 20 PHONE #: [phone] EXAM DATE: 09/17/2022 STATUS: ADM IN FAX #: [phone] RAD #: D/C DT PAGE 1 Signed Report Patient Name: SILAS JONESPCION Unit No: [id number] EXAMS: CPT CODE: [id number] CT HEAD/BRAIN W/O CONT [id number] (Continued) Orig Print D/T: S: 09/17/2022 (190) DENIZ Zapatae NAME: SILAS JONSEPCION [address] [place] [address] Blvd PHYS: Valentina Mattson [place], [place] [address] : 1975 AGE: 47 SEX: F LOC: JOSHUA [facility] PHONE #: [phone] EXAM DATE: 09/17/2022 STATUS: ADM IN FAX #: [phone] RAD #: D/C DT PAGE 2 Signed ReportURINALYSIS [id number] 16:28:00* Test Item Value Reference Range Interpretation [...] >0 /UL NONE-SQepi DRUGS OF ABUSE SCREEN [id number] 16:28:00* Test Item Value Reference Range Interpretation [...] interpret this result as normal/abnormal. TROP-I HIGH [id number] 16:26:00* Test Item Value Reference Range Interpretation [...] and URLs may vary bymethod. BASIC METABOLIC [id number] 16:25:00* Test Item Value Reference Range Interpretation [...] interpret this result as normal/abnormal. HEPATIC FUNCTION [id number] 16:25:00* Test Item Value Reference Range Interpretation [...] ode = CK) 92 Unit/L 26-192 N [id number] 16:25:00* Test Item Value Reference Range Interpretation Comme nts LIPASE (test code = LIP) 57 Unit/L 114-286 L - CT HEAD/BRAIN W/O [id number] 00:32:00 [facility]ON[facility] : 1975 Sex: F Patient Name: BHUMIKA JONES Unit No: [id number] EXAMS: CPT CODE: [id number] CT HEAD/BRAIN W/O CONT 18837 EXAM: - CT HEAD/BRAIN W/O CONT LOCATION: [...] Technologist: Terry August CTDI: DLP: Trnscrpt: 09/17/2022(003) [email or web address] [facility] Parish NAME: [address] PHYS: PATCA.02 - [place], [place] [address] : 1975 AGE: 47 SEX: F LOC: B.ERS PHONE #: [phone] EXAM DATE: 09/16/2022 STATUS: REG ER FAX #: [phone] RAD #: D/C DT PAGE1 Signed Report Patient Name: BHUMIKA JONES Unit No: [id number] EXAMS: CPT CODE: [id number] CTHEAD/BRAIN W/O CONT 22216 (Continued) Orig Print D/T: S: 09/17/2022 (003) DENIZ Lugo NAME: ROBERT[address] PHYS: PATCA.02 - Asim Jack MD, [place] [address] : 1975 AGE: 47 SEX: F LOC: MARCOS PHONE #: [phone] EXAM DATE: 09/16/2022 STATUS: REG ER FAX #: [phone] RAD #: D/C DT PAGE 2 Signed Report TROP-I HIGH [id number] 00:13:00* Test Item Value Reference Range Interpretation [...] and URLs may vary bymethod. COMPREHENSIVE METABOLIC [id number] 00:11:00* Test Item Value Reference Range Interpretation [...] interpret this result as normal/abnormal. CBC W/AUTO [id number] 23:59:00* Test Item Value Reference Range Interpretation [...] K/mm3 0.0-0.05 N - XR CHEST 1 [id number] 23:34:00 [facility] SILAS JONESPCION : 1975 Sex: F [place]: E St: PRE -- Patient Name: BHUMIKA JONES Unit No: [id number] EXAMS: CPT CODE: [id number] XR CHEST 1 V 72119 EXAMINATION: - XR CHEST 1 V CLINICAL [...] D/T: S: 09/16/2022 (2336) DENIZ Lugo NAME: [address] PHYS: IGNACIO.02 - Asim Jack MD, [place] [address] : 1975 AGE: 47 SEX: F LOC: B.ERS PHONE #: [phone] EXAMDATE: 09/16/2022 STATUS: PRE ER FAX #: [phone] RAD NO: DC Dt: PAGE 1 Signed ReportCARBAMAZEPINE (TEGRETOL) 2022-09-15 06:12:00* Test Item Value Reference Range Interpretation Comme nts CARBAMAZEPINE (TEGRETOL) (test code = CARB) 1.5 ug/mL 4.0-12.0 L In conjunction w ith other antiepileptic drugs Therapeutic 4.0 - 8.0 Toxicity 9.0 - 12.0 Carbamazepine alone Therapeutic 8.0 - 12.0 Detection Limit = 2.0 <2.0 indicates None DetectedPerformed At: [facility] [address] [id number] Michael Reeves MD Ph:[phone] VALPROIC ACID (DEPAKENE)2022-09-15 06:12:00* Test Item Value Reference Range Interpretation Comme nts VALPROIC ACID (DEPAKENE) (te st code = VALP) 80.6 mcG/ML 50.0-100.0 N COMPREHENSIVE METABOLIC [id number] 06:00:00* Test Item Value Reference Range Interpretation [...] interpret this result as normal/abnormal. CBC W/AUTO [id number] 05:37:00* Test Item Value Reference Range Interpretation [...] NRBC#) 0.00 K/mm3 0.0-0.05 N GLUCOSE BEDSIDE [id number] 20:03:00* Test Item Value Reference Range Interpretation Comme nts GLUCOSE BEDSIDE TESTING (karen t code = GLUBED) 117 MG/DL 70-119 N DRUGS OF ABUSE SCREEN [id number] 11:42:00* Test Item Value Reference Range Interpretation [...] result as normal/abnormal. - CT HEAD/BRAIN W/O [id number] 11:37:00 [facility] SOPHIAEN[facility]: BHUMIKA JONES : 1975 Sex: F Patient Name: BHUMIKA JONES Unit No: [id number] EXAMS: CPT CODE: [id number] CT HEAD/BRAIN W/O CONT 06631 EXAMINATION: - CT HEAD/BRAIN W/O CONT COMPARISON: [...] in appearance. The bony calvarium is intact. Orbitsand globes are unremarkable. No significant paranasal sinus mucosal disease is identified. Vascularstructures are grossly normal IMPRESSION: No acute intracranial abnormality at 1137 Reported and signed by: Gladis Andrew MD CC: Vladimir Forbes MD; Jim Jaimes MD Dictated Date/Time: 09/14/2022 (3322) Technologist: ASUNCION CASTELLANO CTDI: DLP: Trnscrpt: 09/14/2022 (1137) [email or web address] [facility] Parish NAME: BHUMIKA JONES [facility] PHYS: Vladimir Menchaca MD [address] [place] [address] BLVD : 1975 AGE: 47 SEX: F [place], [place] [address] LOC: NEHA Cintron PHONE #: [phone] EXAM DATE: 09/14/2022 STATUS: ADM IN FAX #: [phone] RAD #: D/C DT PAGE 1 Signed Report Patient Name: BHUMIKA JONES Unit No: [id number] EXAMS: CPT CODE: [id number] CT HEAD/BRAIN W/O CONT 09936 (Continued) Orig Print D/T: S: 09/14/2022 (1140) DENIZ Lugo NAME: SILAS JONESPCION MEDICAL IMAGING PHYS: Vladimir Menchaca MD [address] [place] [address] BLVD : 1975 AGE: 47 SEX: F [place] [address] LOC: NEHA Cintron PHONE #: [phone] EXAM DATE: 09/14/2022 STATUS: ADM IN FAX #: [phone] RAD #: D/C DT PAGE 2 Signed [...] AVOIDED DUE TO POSSIBLE HEPARINCONTAMINATION HCG SERUM [id number] 06:51:00* Test Item Value Reference Range Interpretation [...] CK) 268 Unit/L 26-192 H CBC W/AUTO [id number] 03:43:00* Test Item Value Reference Range Interpretation [...] = NRBC#) 0.00 K/mm3 0.0-0.05 N URINALYSIS [id number] 03:41:00* Test Item Value Reference Range Interpretation [...] RARE /LPF NONE - XR CHEST 2 [id number] 02:06:00 [facility] BH[facility]ON[facility] : 1975 Sex: F FAX: Suleman Carvalho [phone] [place]: St: REG Patient Name: BHUMIKA JONES Unit No: [id number] EXAMS: CPT CODE: [id number] XR CHEST 2 V 47986 EXAM: - XR CHEST 2 V HISTORY: [...] Carvalho Dictated Date/Time: 09/14/2022 (020)Technologist: SULEMAN JACQUES (Abner) Transcribed Date/Time: 09/14/2022 (020) By: [email or web address] Orig Print D/T: S: 09/14/2022 (0209) [facility] [place] NAME: BHUMIKA JONES[address] [place] [address] PHYS: Suleman [place], [place] [address] : 1975 AGE: 47SEX: F LOC: MARCOS PHONE #: [phone] EXAM DATE: 09/14/2022 STATUS: FACUNDO STAFFORD FAX #: [phone] RAD NO: DC Dt: PAGE 1 Signed ReportCOMPREHENSIVE METABOLIC [id number] 12:49:00* Test Item Value Reference Range Interpretation [...] used to interpret this result as normal/abnormal. [id number] 12:49:00* Test Item Value Reference Range Interpretation Comme nts MAGNESIUM (test code = MAG) 1.7 MG/DL 1.6-2.6 N CBC W/AUTO [id number] 12:36:00* Test Item Value Reference Range Interpretation [...] 0.0-0.05 N PENDING RECEIPT OF SPECIMEN PER B.LAB.MELLO AT 09/13/22 1143URINALYSIS COMPLETE 2022-09-13 12:22:00* Test [...] RARE /LPF NONE DRUGS OF ABUSE SCREEN [id number] 00:33:00* Test Item Value Reference Range Interpretation [...] 300 ng/mL UA RFLX MICR CULT IF [id number] 00:30:00* Test Item Value Reference Range Interpretation [...] culture: Suprapubic PainSpecimen Description: CLEAN CATCHBASIC METABOLIC [id number] 00:18:00* Test Item Value Reference Range Interpretation [...] 8.9 mg/dl 8.0-10.5 N HEPATIC FUNCTION PANEL [id number] 00:18:00* Test Item Value Reference Range Interpretation [...] ALKP) 113 Units/L 50.0-136.0 N HCG SERUM [id number] 00:18:00* Test Item Value Reference Range Interpretation Comme [facility] HCG SERUM QUAL (test code = HCGQL) NEGATIVE NEGATIVE [id number] 00:18:00* Test Item Value Reference Range Interpretation Comme [facility] ALCOHOL (test code = ALC) 0.00 gm/dL 0.00-0.00 N ETHYL ALCOHOL WY SHARRI - INTERPRETATION: 0.050 GM/DL - NOT INTOXICATED 0.100 GM/DL - INTOXICATED 0.350-0.450 GM/DL - SEVERELY INTOXICATED 0.550 GM/DL- FATAL INTOXICATION Coronavirus 2019 nCoV [id number] 00:09:00* Test Item Value Reference Range Interpretation Comme [facility] Coronavirus 2019 nCoV Bedside (test code = [id number]) Negative NEGATIVE Negative results should be treated as presumptive and ifinconsistent with clinical signs and symptoms, or necessaryfor patient management, should be tested with an alternativemolecular assay. Negative results do not preclude XYKU-BvY-6lbpirqnsc and should not be used as the sole basis forpatient management decisions. Negative results should beconsidered in the context of a patient's recent exposures,history, presence of clinical signs and symptoms consistentwith COVID-19. CBC W/AUTO [id number] 23:58:00* Test Item Value Reference Range Interpretation [...] X10 3uL 0.00-0.01 N COMP. METABOLIC PANEL (78441)2022-09-07 02:12:41* Test Item Value Reference Range Interpretation Comme nts NA (test code = 1774136233) 133 mmol/L 135-145 L K (test code = 2648286245) 4.4 mmol/L 3.5-5.0 CL (test code = 1096875497) 102 mmol/L 98-108 CO2 TOTAL (test code = 9098066724) 25 mmol/L 23-31 AGAP (test code = 2121502484) 6 2-16 BUN (test code = 8161708120) 22 mg/dL 7-23 GLUCOSE (test code = 1285143430) 97 mg/dL 70-110 CREATININE (test code = 0543156594) 0.40 mg/dL 0.50-1.04 L TOTAL BILI (test code = 8176833167) 0.3 mg/dL 0.1-1.1 CALCIUM (test code = 8446234197) 8.9 mg/dL 8.6-10.6 T PROTEIN (test code = 8083631313) 7.7 g/dL 6.3-8.2 ALBUMIN (test code = 1679844703) 4.0 g/dL 3.5-5.0 ALK PHOS (test code = 8945202457) 104 U/L 34-122 ALTv (test code = 1742-6) 15 U/L 5-35 AST(SGOT) (test code = 2591637372) 22 U/L 13-40 eGFR (test code = 2753097844) 170.4 mL/min/1.73m2 HANNAH (test code = HANNAH) [...] imaging tests). Lab Interpretation (test code = 07930-3) Abnormal [facility] WITH [id number] 02:01:20* Test Item Value Reference Range Interpretation Comme nts WBC (test code = 6690-2) 6.17 See_Comment [Automated [employer]] The system which generated this result transmitted reference range: 4.30 - 11.10 10*3/?L. The reference range was not used to interpret this result as normal/abnormal. RBC (test code = 789-8) 3.73 See_Comment L [Automated [employer]] The system which generated this result transmitted [...] 32.9 g/dL 31.6-35.1 RDW-SD (test code = 55163-2) 48.1 fL 39.0-49.9 RDW-CV (test code = 788-0) 14.7 % 12.0-15.5 PLT (test code = 777-3) 272 See_Comment [Automated [employer]] The system which generated this

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
[2023-12-05 13:17] VITALS: BP 102/67; TEMP 97.8; O2SAT 99
== END 2023-12-05 12:33 | disposition home or self-care (01) ==
LOC: ER 12:17
DX: S09.90XA Unspecified injury of head, initial encounter (principal)
CPT/HCPCS: 99284

== ENCOUNTER 2023-12-18 12:41 | Emergency (ER) | payer SELFPAY ==
--- OUTSIDE RECORDS SUMMARY | 2023-12-18 12:50 | XMS REPORT | Continuity of Care Document ---
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 Henry Contreras 2023-10-25 00:00:00 2023-10-25 00:00:00 Outpatient Visit [facility] [id number] Henry Contreras 2023-10-04 15:25:52 2023-10-04 15:25:52 Outpatient [facility] [id number] Henry Contreras 2023-10-01 00:00:00 2023-10-01 00:00:00 Indio Vidal [facility] ER?[facility] 1.2.840.114 350.1.13.10 4.2.7.2.686 [id number] [facility] 2023-09-16 16:03:08 2023-09-16 16:03:08 Outpatient [facility] [id number] Henry Contreras 2023-08-01 10:00:49 2023-08-01 10:00:49 Outpatient [facility] [id number] Henry F Ben 2023-07-23 14:20:00 2023-07-23 16:57:02 Outpatient R INDIO PHELANLinda INDIO [facility] [id number] [facility] 2023-07-23 14:20:00 2023-07-23 16:57:02 Office Visit Tapan[place]io see Iron [facility] CRESCENCIO ROSENBERG?[facility] 1..840.114 350.1.13.10 4.2.7.2.686 [id number] [facility] 2023-07-23 00:00:00 2023-07-23 00:00:00 Orders Only Doctor Unassigned, [place] [facility] 1.840.114 350.1.13.10 4.2.7.2.686 [id number] [facility] 2023-07-04 16:48:23 2023-07-04 16:48:23 Outpatient [facility] [id number] Henry Contreras 2023-06-18 10:35:36 2023-06-18 10:35:36 Outpatient [facility] [id number] Henry Quiles Ben 2023-06-05 00:00:00 2023-06-05 00:00:00 Orders Only Doctor Unassigned, [place] [facility] 1.840.114 350.1.13.10 4.2.7.2.686 [id number] [facility] 2023-06-04 16:00:39 2023-06-04 16:00:39 Outpatient [facility] [id number] Henry Contreras 2023-05-24 15:38:52 2023-05-24 15:38:52 Outpatient [facility] [id number] Henry Quiles Ben 2023-05-22 00:00:00 2023-05-22 00:00:00 Letter (Out) Neurology [facility] 1..840.114 350.1.13.10 4.2.7.2.686 [id number] [facility] 2023-05-20 00:00:00 2023-05-20 00:00:00 Orders Only Doctor Unassigned, [place] [facility] 1.2.840.114 350.1.13.10 4.2.7.2.686 [id number] [facility] 2023-05-17 15:07:14 2023-05-17 15:07:14 Outpatient [facility] [id number] Henry Quiles [place] 2023-03-02 12:27:43 2023-03-02 12:27:43 Outpatient [facility] [id number] Henry Quiles [place] 2023-01-09 17:11:26 2023-01-09 17:11:26 Outpatient [facility] [id number] Henry Quiles [place] 2022-11-04 14:04:00 2022-11-05 11:09:00 Emergency E JESS PAIGE [facility] [id number] [facility] 2022-09-24 12:33:00 2022-09-24 12:51:00 Emergency Heri Snow [facility] 1.2.840.114 350.1.13.10 4.2.7.2.686 [id number] [facility] 2022-09-22 00:00:00 2022-09-22 00:00:00 Nurse Triage Madhavi Mcginnis [facility] 1.2.840.114 350.1.13.10 4.2.7.2.686 [id number] [facility] 2022-09-18 10:09:00 2022-09-19 14:28:00 Inpatient EM Marly Mendenhall [facility] [id number] [facility] 2022-09-16 22:50:00 2022-09-17 01:40:00 Emergency EM Guero Asim [facility] FABI [id number] [facility] 2022-09-14 14:52:00 2022-09-15 14:00:00 Inpatient EM Vladimir Forbes [facility] TELE [id number] [facility] 2022-09-13 09:34:00 2022-09-13 13:00:00 Emergency EM Brad Woodall [facility] [place] [id number] [facility] 2022-09-10 23:39:00 2022-09-11 11:28:00 Emergency EM Russel Sewell [facility] [id number] [facility] 2022-09-10 18:57:00 2022-09-10 20:20:00 Emergency Shelbie, Lisa Ainsley [facility] 1..840.114 350.1.13.10 4.2.7.2.686 [id number] [facility] 2022-09-10 18:57:00 2022-09-10 20:20:00 Emergency X SANDRITA KEY [facility] ERT [id number] [facility] 2022-09-09 20:45:00 2022-09-09 22:46:00 Emergency X SANDRITA KEY [facility] ERT [id number] [facility] 2022-09-09 20:45:00 2022-09-09 22:46:00 Emergency Sandrita Key [facility] 1..840.114 350.1.13.10 4.2.7.2.686 [id number] [facility] 2022-09-06 18:09:00 2022-09-07 00:51:00 Emergency X TAOY BOYD [facility] ERT [id number] [facility] 2022-09-06 18:09:00 2022-09-07 00:51:00 Emergency Tayo Boyd [facility] 1..840.114 350.1.13.10 4.2.7.2.686 [id number] [facility] 2022-08-21 14:11:33 2022-08-21 14:11:33 Outpatient [facility] [id number] Henry Contreras 2022-07-17 15:03:48 2022-07-17 15:03:48 Outpatient [facility] [id number] Henry Contreras 2021-10-02 15:56:00 2021-10-02 19:00:00 Emergency X JAVED FRANK [facility] ERT [id number] [facility] 2021-10-02 15:56:00 2021-10-02 19:00:00 Emergency Javed Frank [facility] 1.2.840.114 350.1.13.10 4.2.7.2.686 [id number] [facility] 2021-05-05 13:22:00 2021-05-05 14:48:00 Emergency X DEON NUNEZ [facility] ERT [id number] [facility] 2021-05-05 13:22:00 2021-05-05 14:48:00 Emergency Nunez Deon [facility] 1.2.840.114 350.1.13.10 4.2.7.2.686 [id number] [facility] 2021-05-05 00:00:00 2021-05-05 00:00:00 Orders Only Doctor Unassigned, [place] [facility] 1.2.840.114 350.1.13.10 4.2.7.2.686 [id number] [facility] 2019-12-15 17:11:56 2019-12-15 18:04:[address] [facility] 1.2.840.114 350.1.13.10 4.2.7.2.686 [id number] 2019-12-15 17:11:56 2019-12-15 18:04:[address] [facility] 1.2.840.114 350.1.13.10 4.2.7.2.686 [id number] [facility] 2019-12-15 17:11:56 2019-12-15 17:11:56 Emergency X Kp GILLILAND [facility] ERT [id number] [facility] 2019-10-25 18:31:31 2019-10-25 19:21:00 Emergency Kristin Miller [facility] 1.2.840.114 350.1.13.10 4.2.7.2.686 [id number] 2019-10-25 18:31:31 2019-10-25 19:21:00 Emergency Kristin Miller [facility] 1.2.840.114 350.1.13.10 4.2.7.2.686 [id number] [facility] 2019-10-25 18:31:31 2019-10-25 18:31:31 Emergency X KRISTIN MILLER [facility] ERT [id number] [facility] 2019-08-13 13:30:00 2019-08-13 14:36:00 Emergency Floridalma Evans [facility] 1.2.840.114 350.1.13.10 4.2.7.2.686 [id number] 2019-08-13 13:30:00 2019-08-13 14:36:00 Emergency Floridalma Evans [facility] 1.2.840.114 350.1.13.10 4.2.7.2.686 [id number] [facility] 2019-08-13 13:30:00 2019-08-13 14:36:00 Emergency X FLORIDALMA EVANS [facility] ERT [id number] [facility] 2019-07-22 13:42:11 2019-07-22 19:02:00 Emergency Unknown, Attending Lisa Morfin [facility] 1.2.840.114 350.1.13.10 4.2.7.2.686 [id number] 2019-07-22 13:42:11 2019-07-22 19:02:00 Emergency X LISA MORFIN [facility] ERT [id number] [facility] 2019-07-22 13:42:11 2019-07-22 19:02:00 Emergency Unknown, Attending Lisa Morfin [facility] 1.2.840.114 350.1.13.10 4.2.7.2.686 [id number] [facility] 2019-07-13 20:17:19 2019-07-13 21:48:00 Emergency X HENRY OWEN [facility] ERT [id number] [facility] 2019-07-13 20:17:19 2019-07-13 21:48:00 Emergency Henry Owen [facility] 1.2.840.114 350.1.13.10 4.2.7.2.686 [id number] [facility] 2019-07-10 14:26:03 2019-07-10 16:33:00 Emergency X DEBBIE PAYTON [facility] ERT [id number] [facility] 2019-07-10 14:26:03 2019-07-10 16:33:00 Emergency Debbie Payton [facility] 1.2.840.114 350.1.13.10 4.2.7.2.686 [id number] [facility] 2019-07-04 19:09:02 2019-07-04 22:51:00 Emergency X LISA MORFIN [facility] ERT [id number] [facility] 2019-06-30 10:33:08 2019-06-30 13:10:00 Emergency X DEON NUNEZ [facility] ERT [id number] [facility] 2019-05-25 11:58:19 2019-05-25 15:37:00 Emergency X DEON NUNEZ [facility] ERT [id number] [facility] 2019-04-09 22:29:37 2019-04-09 23:28:00 Emergency X FLORIDALMA EVANS [facility] ERT [id number] [facility] 2019-01-21 18:38:01 2019-01-21 19:59:00 Emergency Le Ramirez [facility] 1.2.840.114 350.1.13.10 4.2.7.2.686 [id number] [id number] 2019-01-21 18:38:01 2019-01-21 19:59:00 Emergency Le Ramirez [facility] 1.2.840.114 350.1.13.10 4.2.7.2.686 [id number] [facility] Results Test Description Test Time Test Comments Results Result Co mments Source T3 [id number] 04:20:00* Test Item Value Reference Range Interpretation Comme nts T3UP (test code = T3UP) 40.9 % 23.5-40.5 H Thyroxine (T4) free index in Serum or [id number] 04:19:00* Test Item Value Reference Range Interpretation Comme nts Thyroxine (T4) free index in Serum or Plasma (test code = 36638-3) 1.05 ng/dL 0.78-2.19 N [facility])Thyroid hormone uptake (T-uptake) in Serum or P 2023-11-24 04:18:00* Test Item Value Reference Range Interpretation Comme nts Thyroid hormone uptake (T-up take) in Serum or Plasma (test code = 50416-3) 40.9 % 23.5-40.5 H [facility])URINE DRUG [id number] 00:43:00* Test Item Value Reference Range Interpretation [...] abuse 5 panel - Urine by Screen [id number] 00:40:00 NegativeNegativeNegativeNegativeNegativeNegativeNegativeB[facility] ([place])[id number] 00:33:00* Test Item Value Reference Range Interpretation [...] /HPF 0-2 Urinalysis panel - Urine by Mjwm5189-88-45 00:33:00* Test Item Value Reference Range Interpretation Comme nts Ketones [Presence] in Urine (test code = 89292-2) 15 MG/DL NEG N pH of Urine (test code = 2756-5) 5.5 1 5.0-7.5 N Urobilinogen [Presence] in U rine (test code = 91865-8) 0.2 EU/DL 0.2-1.0 N Specific gravity of Urine (t est code = 2965-2) 1.013 1 1.0-1.025 N Leukocytes [Presence] in Uri ne sediment by Light microscopy (test code = 18654-5) 10 /HPF 0.0-5.0 H Erythrocytes [Presence] in U rine sediment by Light microscopy (test code = 52932-8) 2 /HPF 0.0-2.0 [facility])VITAMIN [id number] 22:47:00* Test Item Value Reference Range Interpretation Comme nts B12 (test code = B12) 880 pg/mL 239-931 [id number] 22:47:00* Test Item Value Reference Range Interpretation Comme nts FOLATE (test code = FOLATE) 8.9 ng/mL 2.76-20.0 THYROID STIMULATION [id number] 22:47:00* Test Item Value Reference Range Interpretation Comme nts TSH (test code = TSH) 6.62 UIU/ML 0.465-4.68 H Cobalamin (Vitamin B12) [Mass/volume] in Qjkez8934-57-01 22:47:00* Test Item Value Reference Range Interpretation Comme nts Cobalamin (Vitamin B12) [Mass/volume] in Serum or Plasma (test code = 2132-9) 880 pg/mL 239.0-931.0 [facility])Folate [Mass/volume] in Serum or Gjyduo5864-72-45 22:47:00* Test Item Value Reference Range Interpretation Comme nts Folate [Mass/volume] in Seru m or Plasma (test code = 2284-8) 8.9 ng/mL 2.76-20.0 [facility])Thyrotropin in Serum or Wnsphy0922-44-29 22:47:00* Test Item Value Reference Range Interpretation Comme nts Thyrotropin in Serum or Plas ma (test code = 95487-3) 6.62 UIU/ML 0.465-4.68 [facility] / 22:46:00* Test Item Value Reference Range Interpretation Comme nts HIV 1/2 AB (test code = SCRN HIV) NEGATIVE NEGATIVE This test is us ed for SCREENING purposes only. All reactive results are prelimenary and confirmation results will follow. HIV 1+2 Ab [Units/volume] in Ttogc0903-64-31 22:45:00[facility])HEPATITIS C ANTIBODY [id number] 22:28:00* Test Item Value Reference Range Interpretation Comme [facility] SCRN HCV (test code = SCRN HCV) NEGATIVE NEGATIVE Hepatitis C Anti body test is for screening purposes only. All reactives will be confirmed by additional testing. Hepatitis C virus Ab [Presence] in Slzmf5013-46-41 22:27:00[facility])B-HCG QUAL (KIT)2023-11-23 22:01:00* Test Item Value Reference Range Interpretation Comme [facility] HCGQUAL (test code = HCGQUAL) NEGATIVE NEGATIVE URINE: NEGATIVE = < 20 mIU/ML; POSITIVE= >/= 20 mIU/ML SERUM: NEGATIVE = < 10 mIU/ML; POSITIVE= >/= 10 mIU/ML SOURCE (test code = SOURCE) SERUM HCG INTERNAL POSITIVE CNTRL (test code = HCGIPC) PASS PASS HCG LOT # (test code = UHCGLOT) [id number] HCG EXPIRATION DATE (test code = UHCGEXP) Choriogonadotropin.beta subunit ( pyrq9575-08-84 22:01:00* Test Item Value Reference Range Interpretation Comme [facility] Specimen source [Identifier] of Body fluid (test code = 69893-8) SERUM N Reagent Lot number (test cod e = 99036-4) 1 N [facility])CT HEAD W/O [id number] 22:00:00 [facility] : 1975 Sex: F[address] [id number] IMAGING REPORTPatient Name: ROBERT, CONCEPTIONDate of Service: 80-66-7256Puu: 48 Sex: F Order #: [id number] Room: ERSDOB: 1975 X-Ray Number: [id number] Record Number: [id number] Hospital Number: [id number] Physician: LAWRENCE MEJIASOrdering Physician: LAWRENCE MEJIASPROCEDURE: CTHEAD [...] 21:59:03CT Head and Orbit - bilateral WO werantwf1494-85-73 21:59:03 ORDER 1400: CT HEAD W/O CONT (LOINC: 84866-6)ORDER DATE: November 24, 2023 12:50:00 AM [facility]CT ABDOMEN/PELVIS [id number] 21:54:00 [facility] : 1975 Sex: F[address] [id number] IMAGING REPORTPatient Name: JONES CONCEPTIONDate of Service: 87-56-1262Fsg: 48 Sex: F Order #: [id number] Room: ERSDOB: 1975 X-Ray Number: [id number] Record Number: [id number] Hospital Number: [id number] Physician: LAWRENCE MEJIASOrdering Physician: LAWRENCE MEJIASPROCEDURE: CT [...] YUNIOR MCKEON 2023-11-23 21:53:03 CT Abdomen and Gzcbms6877-21-53 21:53:03ORDER 1500: CT ABDOMEN/PELVIS WITHOUT (LOINC: 82569-8)ORDER DATE: November 24, 2023 12:50:00 AM [facility]2024-06-01 21:31:00* Test Item Value Reference [...] 70-99 Fasting glucos e normal <100 MG/DL- Citizen Of [place] [employer] recommendation CALCIUM (test code = [...] of age is not validated by the industrial analyst and may not represent the patients true [...] should be used in the calculation". CREATINE [id number] 21:31:00* Test Item Value Reference Range Interpretation Comme nts CK (test code = CK) 115 U/L 30-135 BLOOD ALCOHOL (ETOH)2023-11-23 21:31:00* Test Item Value Reference Range Interpretation Comme nts ALCOHOL BLOOD LEVEL (test code = ALC BLD) <10 MG/DL 0-10 Results ar e to be used for medical purposes (treatment) only. Not intended for non medical purposes. Ethanol [Mass/volume] in Bruww9522-09-78 21:30:00* Test Item Value Reference Range Interpretation Comme nts Ethanol [Mass/volume] in Blo od (test code = 5640-8) <10 0.0-10.0 N [facility]Creatine kinase isoenzymes [interpretation] in 2023-11-23 21:30:00* Test Item Value Reference Range Interpretation Comme nts Creatine kinase isoenzymes [interpretation] in Serum or Plasma Narrative (test code = 63343-6) 115 U/L 30.0-135.0 N [facility])Comprehensive metabolic 2000 panel - Serum or P 2023-11-23 21:27:00* Test Item Value Reference Range Interpretation Comme nts Sodium [Moles/volume] in Blood (test code = 2947-0) 137 MMOL/L 137.0-145.0 N Potassium [Moles/volume] in Blood (test code = 6298-4) 4.2 MMOL/L 3.5-5.1 N Chloride [Moles/volume] in Blood (test code = 2069-3) 100 MMOL/L 98.0-107.0 N Carbon dioxide, total [Moles/volume] in Blood (test code = 27684-2) 24 MMOL/L 22.0-30.0 N Urea nitrogen [Mass/volume] in Serum or Plasma (test code = 3094-0) 16 MG/DL 7.0-17.0 N Creatinine [Mass/volume] in Blood (test code = 38236-7) 0.6 MG/DL 0.7-1.2 L Glucose [Mass/volume] in Blood (test code = 2339-0) 80 MG/DL 70.0-99.0 N Calcium [Mass/volume] in Serum or Plasma (test code = 66878-8) 10.3 MG/DL 8.4-10.2 H Protein [Mass/volume] in Serum or Plasma (test code = 2885-2) 9.9 G/DL 6.3-8.2 H Albumin [Presence] in Serum or Plasma (test code = 28677-5) 4.7 G/DL 3.5-5.0 N Bilirubin direct and total panel [Mass/volume] - Serum or Plasma (test code = 14375-0) 0.8 MG/DL 0.2-1.3 N Aspartate aminotransferase [Enzymatic [...] 50 percent [- Reported] (test code = 29171-6) 113.0 mL/min/1.73m2 N Anion gap in Serum or Plasma (test code = 62730-0) 13 mmol/L 4.0-12.0 H [facility])[id number] 21:15:00* Test Item Value Reference Range Interpretation [...] 1.2-7.2 CBC W Auto Differential panel - [id number] 21:15:00* Test Item Value Reference Range Interpretation Comme nts Leukocytes other [Identifier ] in Blood by Automated count (test code = 29148-2) 4.5 K/UL 3.5-10.9 N Erythrocytes [#/volume] in B lood (test code = 45724-7) 4.91 M/UL 4.0-5.0 N Hemoglobin A/Hemoglobin.tota l in Blood (test code = 4546-8) 13.8 G/DL 11.5-15.5 N Hematocrit [Volume Fraction] of Blood (test code = 40114-4) 42.4 % 34.0-46.0 N Erythrocyte mean corpuscular volume [Entitic volume] (test code = 05091-3) 86.4 FL 80.0-98.0 N Erythrocyte mean corpuscular hemoglobin [Entitic mass] (test code = 04817-4) 28.1 PG 28.0-32.0 N Erythrocyte mean corpuscular hemoglobin concentration [Mass/volume] (test code = 73315-5) 32.5 G/DL 32.5-36.5 N Erythrocyte distribution wid th [Ratio] (test code = 36172-7) 14.9 % 11.5-14.5 H Platelets panel - Blood by Automated count (test code = 29541-8) 124 K/UL 150.0-450.0 L Platelet mean volume [Entiti c volume] in Blood by Automated count (test code = 57878-9) 10.0 FL 7.4-10.4 N Neutrophils.segmented/100 leukocytes in Blood (test code = 15565-0) 53.3 % 40.0-75.0 N Lymphocytes Variant/100 leuk ocytes in Blood (test code = 60757-1) 33.9 % 24.0-44.0 N Lymphocytes+Monocytes/100 leukocytes in Blood (test code = 4662-3) 10.0 % 0.0-13.0 N Eosinophils [#/volume] in Bl ood (test code = 65516-4) 2.2 % 0.0-4.0 N Basophils [#/volume] in Bloo d (test code = 06046-2) 0.4 % 0.0-2.0 N Immature granulocytes/100 leukocytes in Blood (test code = 79000-8) 0.2 % 0.0-1.0 N Nucleated erythrocytes [#/vo lume] in Blood (test code = 55901-7) 0 /100 WBC N Neutrophils [#/volume] in Bl ood (test code = 72428-8) 2.4 K/UL 1.2-7.2 N [facility] ([place])PAP TEST, THINPREP, [id number] 16:02:24* Test Item Value Reference Range Interpretation Comme nts SOURCE: (test code = 8001) Cervical/Endoce rvical SLIDES: (test code = 8011) 1 LMP: (test code = 8021) SEE NOTE POST MENOPAUSAL SPECIMEN ADEQUACY: (test code = 62376) (NOTE) Satisfactory for evaluation. Endocervical cells/transformation zone component present. INTERPRETATION: (test code = 99403) NILM/NO EPITH. ABNORMALITY;SEE BELOW --- - NEGATIVE FOR INTRAEPITHELIAL LESION OR MALIGNANCY (NILM) ---- ASSISTANT CITY ATTORNEY : (test code = 8101) Jami Smalls LOCATION: (test code = 58317) (NOTE) Specimens proces sed and interpreted at [facility], [address] [place] [address], , CLIA: [id number] CPT: (test code = 8140) (NOTE) 38[address] UNLESS OTH ERWISE INDICATED, COMPUTER AIDED AND ASSISTANT CITY ATTORNEY SCREENING PERFORMED. The Pap test is a screening test with an inherent, but low probability of error. Your patient should be reminded to consult you immediately if she experiences any suspicious signs or symptoms, regardless of her Pap test result. An alternate report format containing images or consolidated prior Pap history is available as applicable. HPV HIGH RISK WITH GENOTYPE, [id number] 15:53:52* Test Item Value Reference Range Interpretation Comme nts HPV HIGH RISK INTERP (test code = 51395) NEGATIVE NEGATIVE HPV 16 (test code = 10388) NEGATIVE HPV 18 (test code = 60239) NEGATIVE HPV, HR, OTHER GENOTYPES (test code = 62022) NEGATIVE Testing methodol ogy is real-time PCR utilizing hydrolysis probes with the [facility] system. The test individually detects genotypes 16 and 18, as well as the other 12 high risk types (31,33,35,39,45,51,52,56 ,58,59,66,68). The expected result is negative. A negative result does not rule out the presence of HPV not included in the genotype set, a low level of infection or specimen sampling error. UNLESS OTHERWISE INDICATED, ALL TESTING PERFORMED AT [facility] [address] [place] [address] STEAM POWERPLANT SUPERVISOR: JATIN FELIPE M.D. CLIA NUMBER [id number] [facility] [place]. [id number] HPV HIGH RISK WITH GENOTYPE, [id number] 00:00:00* Test Item Value Reference Range Interpretation Comme nts HPV HIGH RISK INTERP (test c ode = 42400) NEGATIVE HPV 16 (test code = 84277) NEGATIVE HPV 18 (test code = 19671) NEGATIVE HPV, HR, OTHER GENOTYPES (te st code = 09224) NEGATIVE PDFE (test code = PDFReport) PDF Henry ContrerasPAP TEST, THINPREP, [id number] 00:00:00* Test Item Value Reference Range Interpretation Comme nts SOURCE: (test code = 8001) Cervical/Endocervical SLIDES: (test code = 8011) 1 LMP: (test code = 8021) SEE NOTE SPECIMEN ADEQUACY: (test code = 38745) (NOTE) INTERPRETATION: (test code = 48860) NILM/NO EPITH. ABNORMALITY;SEE BELOW ASSISTANT CITY ATTORNEY: (test code = 8101) Jami Smalls LOCATION: (test code = 34367) (NOTE) CPT: (test code = 8140) (NOTE) Henry Quiles AustinHPV HIGH RISK WITH GENOTYPE, [id number] 00:00:00* Test Item Value Reference Range Interpretation Comme nts HPV HIGH RISK INTERP (test c ode = 96945) NEGATIVE HPV 16 (test code = 54293) NEGATIVE HPV 18 (test code = 74945) NEGATIVE HPV, HR, OTHER GENOTYPES (te st code = 48855) NEGATIVE PDFE (test code = PDFReport) PDF Henry Quiles AustinPAP TEST, THINPREP, [id number] 00:00:00* Test Item Value Reference Range Interpretation Comme nts SOURCE: (test code = 8001) Cervical/Endocervical SLIDES: (test code = 8011) 1 LMP: (test code = 8021) SEE NOTE SPECIMEN ADEQUACY: (test code = 25129) (NOTE) INTERPRETATION: (test code = 93320) NILM/NO EPITH. ABNORMALITY;SEE BELOW ASSISTANT CITY ATTORNEY: (test code = 8101) Jami Smalls LOCATION: (test code = 93607) (NOTE) CPT: (test code = 8140) (NOTE) Henry ContrerasPAP TEST, THINPREP, IMAGED [ADDED]2023-10-10 00:00:00* Test Item Value Reference Range Interpretation Comme nts SOURCE: (test code = 8001) Unspecified SLIDES: (test code = 8011) 2 LMP: (test code = 8021) NOT GIVEN SPECIMEN ADEQUACY: (test code = 49363) (NOTE) INTERPRETATION: (test code = 06246) UNSATISFACTORY; SEE BELOW OTHER COMMENTS: (test code = 8081) (NOTE) ASSISTANT CITY ATTORNEY: (test code = 8101) Jose Bustillos TECHNOLOGIST: (test code = 8111) Jason WhitmanRUST(ASCP),[facility] LOCATION: (test code = 14848) (NOTE) CPT: (test code = 8140) (NOTE) Henry ContrerasHPV HIGH RISK IF ASC/LSIL, THINPREP [ADDED]2023-10-10 00:00:00* Test Item Value Reference Range Interpretation Comme nts HPV HIGH RISK IF ASC/LSIL, THINPREP (test code = 88042) CRITERIA NOT MET Henry Quiles AustinPAP TEST, THINPREP, IMAGED [ADDED]2023-10-10 00:00:00* Test Item Value Reference Range Interpretation Comme nts SOURCE: (test code = 8001) Unspecified SLIDES: (test code = 8011) 2 LMP: (test code = 8021) NOT GIVEN SPECIMEN ADEQUACY: (test code = 24682) (NOTE) INTERPRETATION: (test code = 29514) UNSATISFACTORY; SEE BELOW OTHER COMMENTS: (test code = 8081) (NOTE) ASSISTANT CITY ATTORNEY: (test code = 8101) Jose Bustillos QC TECHNOLOGIST: (test code = 8111) Jason Whitman,RUST(ASCP),[facility] LOCATION: (test code = 08399) (NOTE) CPT: (test code = 8140) (NOTE) Henry Quiles AustinHPV HIGH RISK IF ASC/LSIL, THINPREP [ADDED]2023-10-10 00:00:00* Test Item Value Reference Range Interpretation Comme nts HPV HIGH RISK IF ASC/LSIL, THINPREP (test code = 75012) CRITERIA NOT MET Henry Quiles AustinGONORRHEA, NAAT, THINPREP [ADDED]2023-10-08 00:00:00* Test Item Value Reference Range Interpretation Comme nts GONORRHEA, NAAT, THINPREP (t est code = 04144) NEGATIVE Henry Quiles AustinCHLAMYDIA, NAAT, THINPREP [ADDED]2023-10-08 00:00:00* Test Item Value Reference Range Interpretation Comme nts CHLAMYDIA, NAAT, THINPREP (t est code = 05314) NEGATIVE PDFE (test code = PDFReport) PDF Henry Quiles AustinGONORRHEA, NAAT, THINPREP [ADDED]2023-10-08 00:00:00* Test Item Value Reference Range Interpretation Comme nts GONORRHEA, NAAT, THINPREP (t est code = 28208) NEGATIVE Henry Quiles AustinCHLAMYDIA, NAAT, THINPREP [ADDED]2023-10-08 00:00:00* Test Item Value Reference Range Interpretation Comme nts CHLAMYDIA, NAAT, THINPREP (t est code = 95971) NEGATIVE PDFE (test code = PDFReport) PDF Henry Griffin, THIRD [id number] 08:14:44* Test Item Value Reference Range Interpretation Comme nts TSH, THIRD GENERATION (test code = 2821) 5.200 UIU/ML 0.400-4.100 H UNLESS OTHERWISE INDICATED, ALL TESTING PERFORMED AT [facility] [address] [place] [address] STEAM POWERPLANT SUPERVISOR: JATIN FELIPE M.D. [place] NUMBER [id number] [facility] [place]. [id number] 00:00:00* Test Item Value Reference Range Interpretation Comme nts TSH, THIRD GENERATION (test code = 2821) 5.200 UIU/ML Henry [id number] 00:00:00* Test Item Value Reference Range Interpretation Comme nts TSH, THIRD GENERATION (test code = 2821) 5.200 UIU/ML Henry Griffin THIRD [id number] 23:53:27* Test Item Value Reference Range Interpretation Comme nts TSH, THIRD GENERATION (test code = 2821) 11.100 UIU/ML 0.400-4.100 H COMPREHENSIVE METABOLIC [id number] 23:46:03* Test Item Value Reference Range Interpretation Comme nts GLUCOSE (test code = 2217) 97 MG/DL 70-99 BUN (test code = 2208) 7 MG/DL 6-20 CREATININE (test code = 2214) 0.61 MG/DL 0.60-1.30 eGFR (2020 CKD-EPI) (test code = 71223) 110 ML/MIN/1.73 >60 CALC BUN/CREAT (test code [...] 13 U/L 5-40 CBC W/AUTO DIFF WITH [id number] 08:48:44* Test Item Value Reference Range Interpretation [...] 0.00-0.10 ABS NUCLEATED RBCS (test code = 88005) 0.00 K/UL 0.00-0.11 UNLESS OTHER MONTOYA INDICATED, ALL TESTING PERFORMED AT [facility] [address] [place] [address] STEAM POWERPLANT SUPERVISOR: JATIN FELIPE M.D. CLIA NUMBER [id number] [facility] [place]. [id number] 00:00:00* Test Item Value Reference Range Interpretation Comme nts TSH, THIRD GENERATION (test code = 2821) 11.100 UIU/ML Henry Quiles [facility] W/AUTO [id number] 00:00:00* Test Item Value Reference Range Interpretation [...] ABS NUCLEATED RBCS (test cod e = 03186) 0.00 K/UL Henry ContrerasCOMPREHENSIVE METABOLIC [id number] 00:00:00* Test Item Value Reference Range Interpretation Comme nts GLUCOSE (test code = 2217) 97 MG/DL BUN (test code = 2208) 7 MG/DL CREATININE (test code = 2214) 0.61 MG/DL eGFR (2020 CKD-EPI) (test code = 09544) 110 ML/MIN/1.73 CALC BUN/CREAT (test code = [...] (test code = 2219) 13 U/L Henry [id number] 00:00:00* Test Item Value Reference Range Interpretation Comme nts TSH, THIRD GENERATION (test code = 2821) 11.100 UIU/ML Henry ContrerasCBC W/AUTO [id number] 00:00:00* Test Item Value Reference Range Interpretation [...] ABS NUCLEATED RBCS (test cod e = 64401) 0.00 K/UL Henry ContrerasCOMPREHENSIVE METABOLIC [id number] 00:00:00* Test Item Value Reference Range Interpretation Comme nts GLUCOSE (test code = 2217) 97 MG/DL BUN (test code = 2208) 7 MG/DL CREATININE (test code = 2214) 0.61 MG/DL eGFR (2020 CKD-EPI) (test code = 42750) 110 ML/MIN/1.73 CALC BUN/CREAT (test code = [...] (test code = 2219) 13 U/L Henry C[id number] 01:13:06* Test Item Value Reference Range Interpretation Comme nts TRANSFERRIN (test code = 4936) 315 MG/DL 200-360 UNLESS OTHERWISE INDICATED, ALL TESTING PERFORMED AT [facility] [address] [place] [address] STEAM POWERPLANT SUPERVISOR: JATIN FELIPE M.D. IA NUMBER [id number] [facility] [place]. [id number] LIPID [id number] 01:12:48* Test Item Value Reference Range Interpretation [...] SPECIMENS. FOR MOREINFORMATION, SEE CLIENT ANNOUNCEMENT AT [email or web address] RISK RATIO LDL/HDL (test code = 2238) 1.34 RATIO <3.22 COMPREHENSIVE METABOLIC [id number] 01:12:48* Test Item Value Reference Range Interpretation Comme nts GLUCOSE (test code = 2217) 92 MG/DL 70-99 BUN (test code = 2208) 15 MG/DL 6-20 CREATININE (test code = 2214) 0.65 MG/DL 0.60-1.30 eGFR (2020 CKD-EPI) (test code = 56136) 108 ML/MIN/1.73 >60 CALC BUN/CREAT (test code [...] IRON BINDING CAPACITY AND IRON AND % [id number] 01:12:48* Test Item Value Reference Range Interpretation Comme nts IRON, SERUM (test code = 2221) 51 UG/DL 37-145 UNSATURATED IBC (test code = 65521) 356 UG/DL 112-347 H CALC TOTAL IBC (test code = 2076) 407 UG/DL 250-450 CALC % IRON SAT (test code = 2078) 13 % 20-50 L [id number] 00:59:24* Test Item Value Reference Range Interpretation Comme nts FERRITIN (test code = 2074) 20 NG/ML 13-200 LIPID [id number] 00:00:00* Test Item Value Reference Range Interpretation Comme nts CHOLESTEROL (test code = 2210) 191 MG/DL TRIGLYCERIDES (test code = 2232) 89 MG/DL HDL CHOLESTEROL (test code = 2220) 74 MG/DL CALC LDL CHOL (test code = 2237) 99 MG/DL RISK RATIO LDL/HDL (test cod e = 2238) 1.34 RATIO Henry F BenCOMPREHENSIVE METABOLIC [id number] 00:00:00* Test Item Value Reference Range Interpretation [...] ContrerasIRON BINDING CAPACITY AND IRON AND % [id number] 00:00:00* Test Item Value Reference Range Interpretation Comme nts IRON, SERUM (test code = 2221) 51 UG/DL UNSATURATED IBC (test code = ) 356 UG/DL CALC TOTAL IBC (test code = 2076) 407 UG/DL CALC % IRON SAT (test code = 2078) 13 % Henry [id number] 00:00:00* Test Item Value Reference Range Interpretation Comme nts FERRITIN (test code = 2074) 20 NG/ML Henry Quiles [id number] 00:00:00* Test Item Value Reference Range Interpretation Comme nts TRANSFERRIN (test code = 4936) 315 MG/DL Henry Quiles AustinLIPID [id number] 00:00:00* Test Item Value Reference Range Interpretation Comme nts CHOLESTEROL (test code = 2210) 191 MG/DL TRIGLYCERIDES (test code = 2232) 89 MG/DL HDL CHOLESTEROL (test code = 0) 74 MG/DL CALC LDL CHOL (test code = 7) 99 MG/DL RISK RATIO LDL/HDL (test cod e = 2238) 1.34 RATIO Henry Quiles BenCOMPREHENSIVE METABOLIC [id number] 00:00:00* Test Item Value Reference Range Interpretation [...] AustinIRON BINDING CAPACITY AND IRON AND % [id number] 00:00:00* Test Item Value Reference Range Interpretation Comme nts IRON, SERUM (test code = 2222) 51 UG/DL UNSATURATED IBC (test code = 11465) 356 UG/DL CALC TOTAL IBC (test code = 2076) 407 UG/DL CALC % IRON SAT (test code = 207) 13 % Henry Quiles [id number] 00:00:00* Test Item Value Reference Range Interpretation Comme nts FERRITIN (test code = 2075) 20 NG/ML Henry Quiles [id number] 00:00:00* Test Item Value Reference Range Interpretation Comme nts TRANSFERRIN (test code = 4936) 315 MG/DL Henry Quiles BenHEMOGLOBIN [id number] 03:08:40* Test Item Value Reference Range Interpretation Comme nts HEMOGLOBIN A1c (test code = 07061) 5.5 % 4.2-5.6 CBC W/AUTO DIFF WITH [id number] 02:29:36* Test Item Value Reference Range Interpretation [...] = 1065) 0.0 /100 WBC'S See_Comment [Automated Deemeloa ge] The system which generated this result [...] 0.00-0.10 ABS NUCLEATED RBCS (test code = 06086) 0.00 K/UL 0.00-0.11 CBC W/AUTO [id number] 00:00:00* Test Item Value Reference Range Interpretation [...] ABS NUCLEATED RBCS (test cod e = 42394) 0.00 K/UL Henry ContrerasHEMOGLOBIN [id number] 00:00:00* Test Item Value Reference Range Interpretation Comme nts HEMOGLOBIN A1c (test code = 34201) 5.5 % Henry ContrerasCBC W/AUTO [id number] 00:00:00* Test Item Value Reference Range Interpretation [...] ABS NUCLEATED RBCS (test cod e = 02358) 0.00 K/UL Henry ContrerasHEMOGLOBIN [id number] 00:00:00* Test Item Value Reference Range Interpretation Comme nts HEMOGLOBIN A1c (test code = 49283) 5.5 % Henry ContrerasDRUGS OF [id number] 05:03:00* Test Item Value Reference Range Interpretation [...] 200 ng/mL Opiates 300 ng/mL URINALYSIS WITH [id number] 04:56:00* Test Item Value Reference Range Interpretation [...] (test code = USPERM) /HPF NONE URINE [id number] 04:53:00* Test Item Value Reference Range Interpretation [...] the FDA and the [employer] [place] Pathologists (CAP) are more stringent than those required for this test. Therefore, the result should be interpreted with caution and close attention to other clinical and epidemiological data [id number] 16:00:00* Test Item Value Reference Range Interpretation Comme nts SALICYLATE (test code = 94B) <3.0 mg/dL 15.0-30.0 L LIVER [id number] 15:49:00* Test Item Value Reference Range Interpretation [...] code = 31A) <7 IU/L 10-49 L [id number] 15:48:00* Test Item Value Reference Range Interpretation [...] to interpret this result as normal/abnormal. 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 Old healed fractures of the distal tibia and fibular noted.Soft tissues: Unremarkable.IMPRESSION: No acute findings.Electronically signed by: Nikko Santiago MD 11/04/2022 3:10 PM CDT [id number] BEDSIDE [id number] 11:51:00* Test Item Value Reference Range Interpretation Comme nts GLUCOSE BEDSIDE TESTING (karen t code = GLUBED) 79 MG/DL 70-119 N GLUCOSE BEDSIDE [id number] 06:23:00* Test Item Value Reference Range Interpretation Comme nts GLUCOSE BEDSIDE TESTING (karen t code = GLUBED) 80 MG/DL 70-119 N BASIC METABOLIC [id number] 05:12:00* Test Item Value Reference Range Interpretation [...] 2.0 <2.0 indicates None DetectedPerformed At: [facility] [address] [id number] Kyle L MD Ph:[phone] GLUCOSE BEDSIDE [id number] 19:51:00* Test Item Value Reference Range Interpretation Comme nts GLUCOSE BEDSIDE TESTING (karen t code = GLUBED) 129 MG/DL 70-119 H OSMOLALITY [id number] 17:56:00* Test Item Value Reference Range Interpretation Comme nts OSMOLALITY SERUM (test code = OSMO) 269 mOsm/kg 275-300 L THYROID STIMULATING [id number] 17:56:00* Test Item Value Reference Range Interpretation Comme nts THYROID STIMULATING HORMONE (test code = TSH) 4.190 mc IU/ML 0.340-4.820 N GLUCOSE BEDSIDE [id number] 15:49:00* Test Item Value Reference Range Interpretation Comme nts GLUCOSE BEDSIDE TESTING (karen t code = GLUBED) 86 MG/DL 70-119 N CREATINE KINASE (CK)2022-09-18 14:33:00* Test Item Value Reference Range Interpretation Comme nts CREATINE KINASE (CK) (test c ode = CK) 145 Unit/L 26-192 N VALPROIC ACID (DEPAKENE)2022-09-18 14:26:00* Test Item Value Reference Range Interpretation Comme [facility] VALPROIC ACID (DEPAKENE) (te st code = VALP) 37.5 mcG/ML 50.0-100.0 L [id number] 14:26:00* Test Item Value Reference Range Interpretation Comme [facility] AMMONIA (test code = AMM) 29.0 mcMOL/L 11.0-32.0 N GLUCOSE BEDSIDE [id number] 11:51:00* Test Item Value Reference Range Interpretation Comme [facility] GLUCOSE BEDSIDE TESTING (karen t code = GLUBED) 88 MG/DL 70-119 N GLYCOSYLATED HEMOGLOBIN (HA1C)2022-09-18 06:53:00* Test Item Value Reference Range Interpretation Comme [facility] GLYCOSYLATED HEMOGLOBIN (HA1 C) (test code = GLYHGB) 5.2 % IS-A1C 4.5-5.6 N ESTIMATED AVERAGE [id number] 06:53:00* Test Item Value Reference Range Interpretation Comme [facility] ESTIMATED AVERAGE GLUCOSE (t est code = EAG) 103 MG/DLest LIPID PROFILE (CORONARY RISK)2022-09-18 06:53:00* Test Item Value Reference Range Interpretation Comme [facility] TRIGLYCERIDES (test code = TRIG) 83 [...] to interpret this result as normal/abnormal. UR [id number] 21:28:00* Test Item Value Reference Range Interpretation Comme nts UR SODIUM RANDOM (test code = JESUSITA) 93 mmol/L 40-200 N UR POTASSIUM RANDOM (test code = KU) 54.8 mmol/L 25-125 N NO ESTABLISHED NORMAL RANGES FOR RANDOM SPECIMENS. UR CHLORIDE RANDOM (test code = CLU) 164 mmol/L 110-150 H UR OSMOLALITY [id number] 21:28:00* Test Item Value Reference Range Interpretation Comme nts UR OSMOLALITY RANDOM (test c ode = OSMOU) 475 mOsm/kg 100-1400 N CBC W/O [id number] 20:05:00* Test Item Value Reference Range Interpretation [...] = MPV) 9.5 fL 6.8-11.2 N LACTIC [id number] 19:35:00* Test Item Value Reference Range Interpretation Comme nts LACTIC ACID (test code = LACT) 1.0 mmol/L 0.4-2.0 N HCG SERUM [id number] 19:31:00* Test Item Value Reference Range Interpretation Comme nts HCG SERUM QUAL (test code = HCGQL) Negative SCREEN NEG - CT HEAD/BRAIN W/O [id number] 18:59:00 [facility] SILAS JONESPCION : 1975 Sex: F Patient Name: SILAS JONESPCION Unit No: [id number] EXAMS: CPT CODE: [id number] CT HEAD/BRAIN W/O CONT [id number] Location: H3 CT head, conducted on 09/17/22 at 1837 hours COMPARISON EXAMS:Head CT exam of 09/17/22 at 00:06 hours TECHNIQUE: CT examination of the brain was performed without contrast on [facility] scanner. Scanning conducted from skull base [...] MD Dictated Date/Time: 09/17/2022 (1858) Technologist: MALA Marie(Abner)(CT) CTDI: DLP: Trnscrpt: 09/17/2022 (1858) [email or web address] DENIZ Lugo NAME: CHIQUIMYRA Gordon[address] PHYS: Valentina Mattson [place], [place] [address] : 1975 AGE: 47 SEX: F LOC: B.ERMED 20 PHONE #: [phone] EXAM DATE: 09/17/2022 STATUS: ADM IN FAX #: [phone] RAD #: D/C DT PAGE 1 Signed Report Patient Name: SILAS JONESPCION Unit No: [id number] EXAMS: CPT CODE: [id number] CT HEAD/BRAIN W/O CONT [id number] (Continued) Orig Print D/T: S: 09/17/2022 (190) DENIZ Zapatae NAME: SILAS JONESPCION [address] [place] [address] Blvd PHYS: Valentina Mattson MD, [place] [address] : 1975 AGE: 47 SEX: F LOC: JOSHUA Hastings PHONE #: [phone] EXAM DATE: 09/17/2022 STATUS: ADM IN FAX #: [phone] RAD #: D/C DT PAGE 2 Signed ReportURINALYSIS [id number] 16:28:00* Test Item Value Reference Range Interpretation [...] >0 /UL NONE-SQepi DRUGS OF ABUSE SCREEN [id number] 16:28:00* Test Item Value Reference Range Interpretation [...] interpret this result as normal/abnormal. TROP-I HIGH [id number] 16:26:00* Test Item Value Reference Range Interpretation [...] and URLs may vary bymethod. BASIC METABOLIC [id number] 16:25:00* Test Item Value Reference Range Interpretation [...] interpret this result as normal/abnormal. HEPATIC FUNCTION [id number] 16:25:00* Test Item Value Reference Range Interpretation [...] ode = CK) 92 Unit/L 26-192 N [id number] 16:25:00* Test Item Value Reference Range Interpretation Comme nts LIPASE (test code = LIP) 57 Unit/L 114-286 L - CT HEAD/BRAIN W/O [id number] 00:32:00 [facility] BHUMIKA JONES : 1975 Sex: F Patient Name: BHUMIKA JONES Unit No: [id number] EXAMS: CPT CODE: [id number] CT HEAD/BRAIN W/O CONT 23616 EXAM: - CT HEAD/BRAIN W/O CONT LOCATION: [...] Terry August CTDI: DLP: Trnscrpt: 09/17/2022(003) [email or web address] [facility] NAME: ROB[address] PHYS: PATCA.02 - Asim Jack [place], [place] [address] : 1975 AGE: 47 SEX: F LOC: B.ERS PHONE #: [phone] EXAM DATE: 09/16/2022 STATUS: REG ER FAX #: [phone] RAD #: D/C DT PAGE1 Signed Report Patient Name: BHUMIKA JONES Unit No: [id number] EXAMS: CPT CODE: [id number] CTHEAD/BRAIN W/O CONT 19324 (Continued) Orig Print D/T: S: 09/17/2022 (003) DENIZ Lugo NAME: [address]ERT[address] PHYS: PATCA.02 - Asim Jack MD, [place] [address] : 1975 AGE: 47 SEX: F LOC: MARCOS PHONE #: [phone] EXAM DATE: 09/16/2022 STATUS: REG ER FAX #: [phone] RAD #: D/C DT PAGE 2 Signed Report TROP-I HIGH [id number] 00:13:00* Test Item Value Reference Range Interpretation [...] and URLs may vary bymethod. COMPREHENSIVE METABOLIC [id number] 00:11:00* Test Item Value Reference Range Interpretation [...] interpret this result as normal/abnormal. CBC W/AUTO [id number] 23:59:00* Test Item Value Reference Range Interpretation [...] K/mm3 0.0-0.05 N - XR CHEST 1 [id number] 23:34:00 [facility]: SILAS JONESPCION : 1975 Sex: F [place]: E St: PRE -- Patient Name: BHUMIKA JONES Unit No: [id number] EXAMS: CPT CODE: [id number] XR CHEST 1 V 66447 EXAMINATION: - XR CHEST 1 V CLINICAL [...] D/T: S: 09/16/2022 (2336) DENIZ Lugo NAME: [address] PHYS: IGNACIO.[email or web address] - Asim Jack [place], [place] [address] : 1975 AGE: 47 SEX: F LOC: B.ERS PHONE #: [phone] EXAMDATE: 09/16/2022 STATUS: PRE ER FAX #: [phone] RAD NO: DC Dt: PAGE 1 Signed ReportCARBAMAZEPINE (TEGRETOL) 2022-09-15 06:12:00* Test Item Value Reference Range Interpretation Comme nts CARBAMAZEPINE (TEGRETOL) (test code = CARB) 1.5 ug/mL 4.0-12.0 L In conjunction w ith other antiepileptic drugs Therapeutic 4.0 - 8.0 Toxicity 9.0 - 12.0 Carbamazepine alone Therapeutic 8.0 - 12.0 Detection Limit = 2.0 <2.0 indicates None DetectedPerformed At: [facility] [address] [id number] Michael Reeves MD Ph:[phone] VALPROIC ACID (DEPAKENE)2022-09-15 06:12:00* Test Item Value Reference Range Interpretation Comme nts VALPROIC ACID (DEPAKENE) (te st code = VALP) 80.6 mcG/ML 50.0-100.0 N COMPREHENSIVE METABOLIC [id number] 06:00:00* Test Item Value Reference Range Interpretation [...] interpret this result as normal/abnormal. CBC W/AUTO [id number] 05:37:00* Test Item Value Reference Range Interpretation [...] NRBC#) 0.00 K/mm3 0.0-0.05 N GLUCOSE BEDSIDE [id number] 20:03:00* Test Item Value Reference Range Interpretation Comme nts GLUCOSE BEDSIDE TESTING (karen t code = GLUBED) 117 MG/DL 70-119 N DRUGS OF ABUSE SCREEN [id number] 11:42:00* Test Item Value Reference Range Interpretation [...] result as normal/abnormal. - CT HEAD/BRAIN W/O [id number] 11:37:00 [facility] SOPHIAENa: BHUMIKA JONES : 1975 Sex: F Patient Name: BHUMIKA JONES Unit No: [id number] EXAMS: CPT CODE: [id number] CT HEAD/BRAIN W/O CONT 62526 EXAMINATION: - CT HEAD/BRAIN W/O CONT COMPARISON: [...] MD; Jim Jaimes MD Dictated Date/Time: 09/14/2022 (4307) Technologist: ASUNCION CASTELLANO CTDI: DLP: Trnscrpt: 09/14/2022 (1137) [id number] [facility] Parish NAME: BHUMIKA JONES MEDICAL IMAGING PHYS: Vladimir Menchaca MD [address] [place] [address] BLVD : 1975 AGE: 47 SEX: F [place], [place] [address] LOC: NEHA Cintron PHONE #: [phone] EXAM DATE: 09/14/2022 STATUS: ADM IN FAX #: [phone] RAD #: D/C DT PAGE 1 Signed Report Patient Name: BHUMIKA JONES Unit No: [id number] EXAMS: CPT CODE: [id number] CT HEAD/BRAIN W/O CONT 07387 (Continued) Orig Print D/T: S: 09/14/2022 (1140) DENIZ Lugo NAME: SILAS [facility]ONESPCION [facility] IMAG[facility] PHYS: Vladimir Menchaca MD [address] [place] [address] BLVD : 1975 AGE: 47 SEX: F [place] [address] LOC: NEHA Cintron PHONE #: [phone] EXAM DATE: 09/14/2022 STATUS: ADM IN FAX #: [phone] RAD #: D/C DT PAGE 2 Signed [...] AVOIDED DUE TO POSSIBLE HEPARINCONTAMINATION HCG SERUM [id number] 06:51:00* Test Item Value Reference Range Interpretation [...] CK) 268 Unit/L 26-192 H CBC W/AUTO [id number] 03:43:00* Test Item Value Reference Range Interpretation [...] = NRBC#) 0.00 K/mm3 0.0-0.05 N URINALYSIS [id number] 03:41:00* Test Item Value Reference Range Interpretation [...] RARE /LPF NONE - XR CHEST 2 [id number] 02:06:00 [facility] CONROEName: BHUMIKA JONES : 1975 Sex: F FAX: Suleman Carvalho [phone] [place]: St: REG Patient Name: BHUMIKA JONES Unit No: [id number] EXAMS: CPT CODE: [id number] XR CHEST 2 V 30928 EXAM: - XR CHEST 2 V HISTORY: [...] NadiyaMKM4 Orig Print D/T: S: 09/14/2022 (0209) [facility] Ina NAME: BHUMIKA JONES[address] [place] [address] PHYS: Suleman [place], [place] [address] : 1975 AGE: 47SEX: F LOC: MARCOS PHONE #: [phone] EXAM DATE: 09/14/2022 STATUS: FACUNDO STAFFORD FAX #: [phone] RAD NO: DC Dt: PAGE 1 Signed ReportCOMPREHENSIVE METABOLIC [id number] 12:49:00* Test Item Value Reference Range Interpretation [...] used to interpret this result as normal/abnormal. [id number] 12:49:00* Test Item Value Reference Range Interpretation Comme nts MAGNESIUM (test code = MAG) 1.7 MG/DL 1.6-2.6 N CBC W/AUTO [id number] 12:36:00* Test Item Value Reference Range Interpretation [...] RARE /LPF NONE DRUGS OF ABUSE SCREEN [id number] 00:33:00* Test Item Value Reference Range Interpretation [...] 300 ng/mL UA RFLX MICR CULT IF [id number] 00:30:00* Test Item Value Reference Range Interpretation [...] culture: Suprapubic PainSpecimen Description: CLEAN CATCHBASIC METABOLIC [id number] 00:18:00* Test Item Value Reference Range Interpretation [...] 8.9 mg/dl 8.0-10.5 N HEPATIC FUNCTION PANEL [id number] 00:18:00* Test Item Value Reference Range Interpretation [...] ALKP) 113 Units/L 50.0-136.0 N HCG SERUM [id number] 00:18:00* Test Item Value Reference Range Interpretation Comme [facility] HCG SERUM QUAL (test code = HCGQL) NEGATIVE NEGATIVE [id number] 00:18:00* Test Item Value Reference Range Interpretation Comme [facility] ALCOHOL (test code = ALC) 0.00 gm/dL 0.00-0.00 N ETHYL ALCOHOL IL SHARRI - INTERPRETATION: 0.050 GM/DL - NOT INTOXICATED 0.100 GM/DL - INTOXICATED 0.350-0.450 GM/DL - SEVERELY INTOXICATED 0.550 GM/DL- FATAL INTOXICATION Coronavirus 2019 nCoV [id number] 00:09:00* Test Item Value Reference Range Interpretation Comme [facility] Coronavirus 2019 nCoV Bedside (test code = [id number]) Negative NEGATIVE Negative results should be treated as presumptive and ifinconsistent with clinical signs and symptoms, or necessaryfor patient management, should be tested with an alternativemolecular assay. Negative results do not preclude BNQG-KuR-4ngzkobeum and should not be used as the sole basis forpatient management decisions. Negative results should beconsidered in the context of a patient's recent exposures,history, presence of clinical signs and symptoms consistentwith COVID-19. CBC W/AUTO [id number] 23:58:00* Test Item Value Reference Range Interpretation [...] X10 3uL 0.00-0.01 N COMP. METABOLIC PANEL (41559)2022-09-07 02:12:41* Test Item Value Reference Range Interpretation Comme nts NA (test code = 4956141335) 133 mmol/L 135-145 L K (test code = 5567821247) 4.4 mmol/L 3.5-5.0 CL (test code = 8881659209) 102 mmol/L 98-108 CO2 TOTAL (test code = 5582211211) 25 mmol/L 23-31 AGAP (test code = 8350201187) 6 2-16 BUN (test code = 4367204491) 22 mg/dL 7-23 GLUCOSE (test code = 2363539158) 97 mg/dL 70-110 CREATININE (test code = 8117496033) 0.40 mg/dL 0.50-1.04 L TOTAL BILI (test code = 3046800290) 0.3 mg/dL 0.1-1.1 CALCIUM (test code = 7405027333) 8.9 mg/dL 8.6-10.6 T PROTEIN (test code = 2956597596) 7.7 g/dL 6.3-8.2 ALBUMIN (test code = 7675514580) 4.0 g/dL 3.5-5.0 ALK PHOS (test code = 9060260508) 104 U/L 34-122 ALTv (test code = 1742-6) 15 U/L 5-35 AST(SGOT) (test code = 9249175497) 22 U/L 13-40 eGFR (test code = 4586391356) 170.4 mL/min/1.73m2 HANNAH (test code = HANNAH) [...] imaging tests). Lab Interpretation (test code = 65582-5) Abnormal [facility] WITH [id number] 02:01:20* Test Item Value Reference Range Interpretation Comme nts WBC (test code = 6690-2) 6.17 See_Comment [Automated CloudHashing] The system which generated this result transmitted reference range: 4.30 - 11.10 10*3/?L. The reference range was not used to interpret this result as normal/abnormal. RBC (test code = 789-8) 3.73 See_Comment L [Automated CloudHashing] The system which generated this result transmitted [...] 32.9 g/dL 31.6-35.1 RDW-SD (test code = 07344-8) 48.1 fL 39.0-49.9 RDW-CV (test code = 788-0) 14.7 % 12.0-15.5 PLT (test code = 777-3) 272 See_Comment [Automated CloudHashing] The system which generated this result transmitted reference range: 166 - 358 10*3/?L. The reference range was not used to interpret this result as normal/abnormal. MPV (test code = 07583-0) 9.6 fL 9.5-12.9 NRBC/100 WBC (test code = 0039168779) 0.0 See_Comment [Automated me ssage] The system which generated this result transmitted reference range: 0.0 - 10.0 /100 WBCs. The reference range was not used to interpret this result as normal/abnormal. NRBC x10^3 (test code = 3593788890) See_Comment [Automated messa ge] The system which generated this result transmitted reference range: 10*3/?L. The reference range was not used to interpret this result as normal/abnormal. GRAN MAT (NEUT) % (test code = 770-8) 42.2 % IMM GRAN % (test code = 1052268546) 0.20 % LYMPH % (test code = 736-9) 38.2 % MONO % (test code = 5905-5) 12.6 % EOS % (test code = 713-8) 5.8 % BASO % (test code = 706-2) 1.0 % GRAN MAT x10^3(ANC) (test code = 3678307324) 2.60 10*3/uL 1.88-7.09 IMM GRAN x10^3 (test code = 2144068819) 0.00-0.06 LYMPH x10^3 (test code = 731-0) 2.36 10*3/uL 1.32-3.29 MONO x10^3 (test code = 742-7) 0.78 10*3/uL 0.33-0.92 EOS x10^3 (test code = 711-2) 0.36 10*3/uL 0.03-0.39 BASO x10^3 (test code = 704-7) 0.06 10*3/uL 0.01-0.07 Lab Interpretation (test code = 44310-8) [facility] (HIGH RISK) 2020-08-19 00:00:00* Test Item Value Reference Range Interpretation Comme nts SARS-CoV-2 INTERPRETATION (t est code = 60185) NEGATIVE SOURCE (test code = 46694) NOT SPECIFIED Henry ContrerasSARS-CoV-2 (COVID-19) by RT-PCR (HIGH RISK)2020-08-19 00:00:00* Test Item Value Reference Range Interpretation Comme nts SARS-CoV-2 INTERPRETATION (t est code = 83247) NEGATIVE SOURCE (test code = 02531) NOT SPECIFIED Henry Quiles AustinHPV HIGH RISK WITH GENOTYPE, [id number] 00:00:00* Test Item Value Reference Range Interpretation Comme nts HPV HIGH RISK INTERP (test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
--- NOTE | 2023-12-18 12:59 | EDPHYS ---
Physician Documentation [facility] Name: Davida Hodges Age: 48 yrs Sex: Female : 1975 Arrival Date: 12/18/2023 Time: 12:41 Bed IW4 Private MD: ED Physician Yong Banks HPI: 12/17 12:57 This 48 yrs old Female presents to ER via Unassigned with complaints of panic rn attack. 12:57 Patient brought in by EMS, reported panic attack but when she got here she refused any rn care and walked out of the emergency room on her own power. Onset: The symptoms/episode began/occurred at an unknown time. - Family history:: not pertinent. - Hospitalizations: : No recent hospitalization is reported. ROS: 12:57 Constitutional: Negative for fever, chills, and weight loss, Cardiovascular: Negative rn for chest pain, palpitations, and edema, Respiratory: Negative for shortness of breath, cough, wheezing, and pleuritic chest pain, Abdomen/GI: Negative for abdominal pain, nausea, vomiting, diarrhea, and constipation, Neuro: Negative for headache, weakness, numbness, tingling, and seizure, Exam: 12:57 Constitutional: This is a well developed, well nourished patient who is awake, alert, rn and in no acute distress. Cardiovascular: Regular rate and rhythm. No pulse deficits. Respiratory: No increased work of breathing, no retractions or nasal flaring. Neuro: Awake and alert, GCS 15 MDM: 12:52 Patient medically screened. kb 12:54 Patient medically screened. rn 12:57 Differential Diagnosis Anxiety, panic attack. Data reviewed: vital signs, nurses notes, rn old medical records, and as a result, I will discharge patient. Refusal of service: The patient/guardian displays adequate decision making capability and despite a detailed discussion of alternatives, benefits, risks, and consequences refuses: all lab tests, all X-rays. Special discussion: I discussed with the patient/guardian in detail that at this point there is no indication for admission to the hospital. It is understood, however, that if the symptoms persist or worsen the patient needs to return immediately for re-evaluation. Administered Medications: No medications were administered Disposition Summary: 12/18/23 12:58 Discharge Ordered Notes: Location: Home rn Problem: chronic rn Symptoms: have improved rn Condition: Stable rn Diagnosis - Anxiety disorder, unspecified rn Followup: rn - With: Private Physician - When: As needed - Reason: Recheck today's complaints, Re-evaluation by your physician Discharge Instructions: - Discharge Summary Sheet rn - Panic Attack rn - Generalized Anxiety Disorder, Adult rn - Managing Anxiety, Adult rn Forms: - Medication Reconciliation Form rn - Antibiotic morning show producer - Prescription Opioid Use rn - Patient Portal Instructions rn - Leadership Thank You Letter rn Signatures: Cristina Sewell FNP-C FNP-Yong Gutiérrez MD MD rn
--- NOTE | 2023-12-18 13:10 | ER ---
Nurse's Notes [facility] Name: Davida Hodges Age: 48 yrs Sex: Female : 1975 Arrival Date: 12/18/2023 Time: 12:41 Bed IW4 Private MD: Diagnosis: Anxiety disorder, unspecified - Family history:: not pertinent. - Hospitalizations: : No recent hospitalization is reported. Assessment: 12/17 13:04 Reassessment: Pt arrived via [facility]. Pt was registered by EMS. Pt left prior tl4 to triage. ED Course: 12:44 Patient arrived in ED. am2 12:52 Cristina Sewell FNP-C is PHCP. kb 12:52 Yong Banks MD is Attending Physician. kb 12:54 Yong Banks MD is Attending Physician. rn 13:08 Laila Foreman, RN is Primary Nurse. iw Administered Medications: No medications were administered Outcome: 12:58 Discharge ordered by MD. rn 13:10 Patient left the ED. iw Signatures: Cristina Sewell FNP-C FNP-Laila Engle, RN RN iw Yong Banks MD MD rn Moreno, Amanda am2 Isacc Martinez RN RN tl4
== END 2023-12-18 13:10 | disposition home or self-care (01) ==
LOC: ER 12:41
DX: F41.9 Anxiety disorder, unspecified (principal)

== ENCOUNTER 2024-01-21 21:49 | Emergency (ER) | payer SELFPAY ==
--- OUTSIDE RECORDS SUMMARY | 2024-01-21 21:56 | XMS REPORT | Continuity of Care Document ---
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 [facility] [id number] Henry Contreras 2023-07-23 14:20:00 2023-07-23 16:57:02 Outpatient R INDIO PHELAN [facility] [id number] [facility] 2023-07-23 14:20:00 2023-07-23 16:57:02 Office [facility] 1.2.840.114 350.1.13.10 4.2.7.2.686 [id number] [facility] 2023-07-23 00:00:00 2023-07-23 00:00:00 Orders Only Doctor Unassigned, [place] [facility] 1.2.840.114 350.1.13.10 4.2.7.2.686 [id number] [facility] 2023-07-04 16:48:23 2023-07-04 16:48:23 Outpatient [facility] [id number] Henry Contreras 2023-06-18 10:35:36 2023-06-18 10:35:36 Outpatient [facility] [id number] Henry Contreras 2023-06-05 00:00:00 2023-06-05 00:00:00 Orders Only Doctor Unassigned, [place] [facility] 1.2.840.114 350.1.13.10 4.2.7.2.686 [id number] [facility] 2023-06-04 16:00:39 2023-06-04 16:00:39 Outpatient [facility] [id number] Henry Contreras 2023-05-24 15:38:52 2023-05-24 15:38:52 Outpatient [facility] [id number] Henry Contreras 2023-05-22 00:00:00 2023-05-22 00:00:00 Letter (Out) Neurology [facility] 1.20.114 350.1.13.10 4.2.7.2.686 [id number] [facility] 2023-05-20 00:00:00 2023-05-20 00:00:00 Orders Only Doctor Unassigned, [place] [facility] 1.0.114 350.1.13.10 4.2.7.2.686 [id number] [facility] 2023-05-17 15:07:14 2023-05-17 15:07:14 Outpatient [facility] [id number] Henry Contreras 2023-03-02 12:27:43 2023-03-02 12:27:43 Outpatient [facility] [id number] Henry Contreras 2023-01-09 17:11:26 2023-01-09 17:11:26 Outpatient [facility] [id number] Henry Contreras 2022-11-04 14:04:00 2022-11-05 11:09:00 Emergency JESS FALCON [facility] [id number] [facility] 2022-09-24 12:33:00 2022-09-24 12:51:00 Emergency Heri Snow [facility] 1..114 350.1.13.10 4.2.7.2.686 [id number] [facility] 2022-09-22 00:00:00 2022-09-22 00:00:00 Nurse Triage Madhavi Mcginnis [facility] 1..114 350.1.13.10 4.2.7.2.686 [id number] [facility] 2022-09-18 10:09:00 2022-09-19 14:28:00 Inpatient EM Marly Mendenhall [facility] OBSE [id number] [facility] 2022-09-16 22:50:00 2022-09-17 01:40:00 Emergency EM Asim Jack [facility] FABI [id number] [facility] 2022-09-14 14:52:00 2022-09-15 14:00:00 Inpatient EM Vladimir Forbes [facility] TELE [id number] [facility] 2022-09-13 09:34:00 2022-09-13 13:00:00 Emergency EM Brad Woodall [facility] FABI [id number] [facility] 2022-09-10 23:39:00 2022-09-11 11:28:00 Emergency EM Russel Sewell [facility] MEXP [id number] [facility] 2022-09-10 18:57:00 2022-09-10 20:20:00 Emergency Lisa Morfin [facility] 1..840.114 350.1.13.10 4.2.7.2.686 [id number] [facility] 2022-09-10 18:57:00 2022-09-10 20:20:00 Emergency X SANDRITA KEY [facility] ERT [id number] [facility] 2022-09-09 20:45:00 2022-09-09 22:46:00 Emergency X SANDRITA KEY [facility] ERT [id number] [facility] 2022-09-09 20:45:00 2022-09-09 22:46:00 Emergency Sandrita Key [facility] 1..840.114 350.1.13.10 4.2.7.2.686 [id number] [facility] 2022-09-06 18:09:00 2022-09-07 00:51:00 Emergency X TAYO BOYD [facility] ERT [id number] [facility] 2022-09-06 18:09:00 2022-09-07 00:51:00 Emergency Tayo Boyd [facility] 1.0.114 350.1.13.10 4.2.7.2.686 [id number] [facility] 2022-08-21 14:11:33 2022-08-21 14:11:33 Outpatient [facility] [id number] Henry Quiles Ben 2022-07-17 15:03:48 2022-07-17 15:03:48 Outpatient [facility] [id number] Henry Quiles Ben 2021-10-02 15:56:00 2021-10-02 19:00:00 Emergency X JAVED FRANK [facility] ERT [id number] [facility] 2021-10-02 15:56:00 2021-10-02 19:00:00 Emergency Javed Frank [facility] 1.0.114 350.1.13.10 4.2.7.2.686 [id number] [facility] 2021-05-05 13:22:00 2021-05-05 14:48:00 Emergency X DEON NUNEZ [facility] ERT [id number] [facility] 2021-05-05 13:22:00 2021-05-05 14:48:00 Emergency Deon Nunez [facility] 1..114 350.1.13.10 4.2.7.2.686 [id number] [facility] 2021-05-05 00:00:00 2021-05-05 00:00:00 Orders Only Doctor Unassigned, [place] [facility] 1.0.114 350.1.13.10 4.2.7.2.686 [id number] [facility] 2019-12-15 17:11:56 2019-12-15 18:04:00 Emergency Kp Gilliland [facility] 1.2.840.114 350.1.13.10 4.2.7.2.686 [id number] 2019-12-15 17:11:56 2019-12-15 18:04:00 Emergency Kp Gilliland [facility] 1.2.840.114 350.1.13.10 4.2.7.2.686 [id number] [facility] 2019-12-15 17:11:56 2019-12-15 17:11:56 Emergency X Kp GILLILAND [facility] ERT [id number] [facility] 2019-10-25 18:31:31 2019-10-25 19:21:00 Emergency Kristin Miller [facility] 1.2.840.114 350.1.13.10 4.2.7.2.686 [id number] 2019-10-25 18:31:31 2019-10-25 19:21:00 Emergency Kristin Miller [facility] 1.2.840.114 350.1.13.10 4.2.7.2.686 [id number] [facility] 2019-10-25 18:31:31 2019-10-25 18:31:31 Emergency X KRISTIN MILLER [facility] ERT [id number] [facility] 2019-08-13 13:30:00 2019-08-13 14:36:00 Emergency Floridalma Evans [facility] 1.2.840.114 350.1.13.10 4.2.7.2.686 [id number] 2019-08-13 13:30:00 2019-08-13 14:36:00 Emergency Floridalma Evans [facility] 1.2.840.114 350.1.13.10 4.2.7.2.686 [id number] [facility] 2019-08-13 13:30:00 2019-08-13 14:36:00 Emergency X FLORIDALMA EVANS [facility] ERT [id number] [facility] 2019-07-22 13:42:11 2019-07-22 19:02:00 Emergency Unknown, [facility] 1.2.840.114 350.1.13.10 4.2.7.2.686 [id number] 2019-07-22 13:42:11 2019-07-22 19:02:00 Emergency X JOHN LISA [facility] ERT [id number] [facility] 2019-07-22 13:42:11 2019-07-22 19:02:00 Emergency Unknown, [facility] 1.2.840.114 350.1.13.10 4.2.7.2.686 [id number] [facility] 2019-07-13 20:17:19 2019-07-13 21:48:00 Emergency X HENRY OWEN [facility] ERT [id number] [facility] 2019-07-13 20:17:19 2019-07-13 21:48:00 Emergency Henry Owen [facility] 1.2.840.114 350.1.13.10 4.2.7.2.686 [id number] [facility] 2019-07-10 14:26:03 2019-07-10 16:33:00 Emergency X DEBBIE PAYTON [facility] ERT [id number] [facility] 2019-07-10 14:26:03 2019-07-10 16:33:00 Emergency Debbie Payton [facility] 1.2.840.114 350.1.13.10 4.2.7.2.686 [id number] [facility] 2019-07-04 19:09:02 2019-07-04 22:51:00 Emergency X LISA MORFIN [facility] ERT [id number] [facility] 2019-06-30 10:33:08 2019-06-30 13:10:00 Emergency X DEON NUNEZ [facility] ERT [id number] [facility] 2019-05-25 11:58:19 2019-05-25 15:37:00 Emergency X DEON NUNEZ [facility] ERT [id number] [facility] 2019-04-09 22:29:37 2019-04-09 23:28:00 Emergency X FLORIDALMA EVANS [facility] ERT [id number] [facility] 2019-01-21 18:38:01 2019-01-21 19:59:00 Emergency Le [facility] 1.2.840.114 350.1.13.10 4.2.7.2.686 [id number] 2019-01-21 18:38:01 2019-01-21 19:59:00 Emergency Le Ramirez [facility] 1.2.840.114 350.1.13.10 4.2.7.2.686 [id number] [facility] Results Test Description Test Time Test Comments Results Result Co mments Source T3 [id number] 04:20:00* Test Item Value Reference Range Interpretation Comme nts T3UP (test code = T3UP) 40.9 % 23.5-40.5 H Thyroxine (T4) free index in Serum or [id number] 04:19:00* Test Item Value Reference Range Interpretation Comme nts Thyroxine (T4) free index in Serum or Plasma (test code = 34185-7) 1.05 ng/dL 0.78-2.19 N [facility])Thyroid hormone uptake (T-uptake) in Serum or P 2023-11-24 04:18:00* Test Item Value Reference Range Interpretation Comme nts Thyroid hormone uptake (T-up take) in Serum or Plasma (test code = 38792-4) 40.9 % 23.5-40.5 H [facility])URINE DRUG [id number] 00:43:00* Test Item Value Reference Range Interpretation [...] abuse 5 panel - Urine by Screen [id number] 00:40:00 NegativeNegativeNegativeNegativeNegativeNegative[facility])[id number] 00:33:00* Test Item Value Reference Range Interpretation [...] /HPF 0-2 Urinalysis panel - Urine by [id number] 00:33:00* Test Item Value Reference Range Interpretation Comme nts Ketones [Presence] in Urine (test code = 30154-9) 15 MG/DL NEG N pH of Urine (test code = 2756-5) 5.5 1 5.0-7.5 N Urobilinogen [Presence] in U rine (test code = 85304-3) 0.2 EU/DL 0.2-1.0 N Specific gravity of Urine (t est code = 2965-2) 1.013 1 1.0-1.025 N Leukocytes [Presence] in Uri ne sediment by Light microscopy (test code = 43432-2) 10 /HPF 0.0-5.0 H Erythrocytes [Presence] in U rine sediment by Light microscopy (test code = 29210-0) 2 /HPF 0.0-2.0 N [facility])VITAMIN [id number] 22:47:00* Test Item Value Reference Range Interpretation Comme nts B12 (test code = B12) 880 pg/mL 239-931 [id number] 22:47:00* Test Item Value Reference Range Interpretation Comme nts FOLATE (test code = FOLATE) 8.9 ng/mL 2.76-20.0 THYROID STIMULATION [id number] 22:47:00* Test Item Value Reference Range Interpretation Comme nts TSH (test code = TSH) 6.62 UIU/ML 0.465-4.68 H Cobalamin (Vitamin B12) [Mass/volume] in Jwarb3725-11-83 22:47:00* Test Item Value Reference Range Interpretation Comme nts Cobalamin (Vitamin B12) [Mass/volume] in Serum or Plasma (test code = 2132-9) 880 pg/mL 239.0-931.0 [facility])Folate [Mass/volume] in Serum or [id number] 22:47:00* Test Item Value Reference Range Interpretation Comme nts Folate [Mass/volume] in Seru m or Plasma (test code = 2284-8) 8.9 ng/mL 2.76-20.0 [facility])Thyrotropin in Serum or [id number] 22:47:00* Test Item Value Reference Range Interpretation Comme nts Thyrotropin in Serum or Plas ma (test code = 48074-0) 6.62 UIU/ML 0.465-4.68 H [facility])ER SCREEN FOR HIV 22:46:00* Test Item Value Reference Range Interpretation Comme [facility] HIV 1/2 AB (test code = SCRN HIV) NEGATIVE NEGATIVE This test is us ed for SCREENING purposes only. All reactive results are prelimenary and confirmation results will follow. HIV 1+2 Ab [Units/volume] in [id number] [facility]:45[facility]HEPAT[facility] ANTIBODY [id number] 22:28:00* Test Item Value Reference Range Interpretation Comme [facility] SCRN HCV (test code = SCRN HCV) NEGATIVE NEGATIVE Hepatitis C Anti body test is for screening purposes only. All reactives will be confirmed by additional testing. Hepatitis C virus Ab [Presence] in Nyjjr3475-34-44 22:27:00[facility]B-HCG QUAL (KIT)2023-11-23 22:01:00* Test Item Value Reference Range Interpretation Comme [facility] HCGQUAL (test code = HCGQUAL) NEGATIVE NEGATIVE URINE: NEGATIVE = < 20 mIU/ML; POSITIVE= >/= 20 mIU/ML SERUM: NEGATIVE = < 10 mIU/ML; POSITIVE= >/= 10 mIU/ML SOURCE (test code = SOURCE) SERUM HCG INTERNAL POSITIVE CNTRL (test code = HCGIPC) PASS PASS HCG LOT # (test code = UHCGLOT) [id number] HCG EXPIRATION DATE (test code = UHCGEXP) Choriogonadotropin.beta subunit ( xjdm4548-56-03 22:01:00* Test Item Value Reference Range Interpretation Comme [facility] Specimen source [Identifier] of Body fluid (test code = 18774-8) SERUM N Reagent Lot number (test cod e = 97302-2) 1 N [facility])CT HEAD W/O [id number] 22:00:00 [facility] 1975 [facility] [place] [id number] IMAGING REPORTPatient Name: ROBERT CONCEPTIONDate of Service: 68-20-2234Zwu: 48 Sex: F Order #: [id number] Room: ERSDOB: 1975 X-Ray Number: [id number] Record Number: [id number] Hospital Number: [id number] Physician: LAWRENCE MEJIASOrdering Physician: LAWRENCE MEJIASPROCEDURE: CTHEAD [...] 21:59:03CT Head and Orbit - bilateral WO [id number] 21:59:03 ORDER 1400: CT HEAD W/O CONT (LOINC: 69792-3)ORDER DATE: November 24, 2023 12:50:00 AM [facility])CT ABDOMEN/PELVIS [id number] 21:54:00 [facility] : 1975 Sex: F[address] [id number] IMAGING REPORTPatient Name: JONATHAN JONESDate of Service: 67-27-1993Zkf: 48 Sex: F Order #: [id number] Room: ERSDOB: 1975 X-Ray Number: [id number] Record Number: [id number] Hospital Number: [id number] Physician: LAWRENCE MEJIASOrdering Physician: LAWRENCE MEJIASPROCEDURE: CT [...] pelvis.This document has been electronically signed by: Mikel Del Rio MD on11/23/2023 21:53:03Legally authenticated by YUNIOR MCKEON 2023-11-23 21:53:03 CT Abdomen and [id number] 21:53:03ORDER 1500: CT ABDOMEN/PELVIS WITHOUT (LOINC: 52757-7)ORDER DATE: November 24, 2023 12:50:00 AM [facility][id number] 21:31:00* Test Item Value Reference Range Interpretation [...] 70-99 Fasting glucos e normal <100 MG/DL- [employer] recommendation CALCIUM (test code = [...] of age is not validated by the tower supervisor and may not represent the patients true [...] should be used in the calculation". CREATINE [id number] 21:31:00* Test Item Value Reference Range Interpretation Comme nts CK (test code = CK) 115 U/L 30-135 BLOOD ALCOHOL (ETOH)2023-11-23 21:31:00* Test Item Value Reference Range Interpretation Comme nts ALCOHOL BLOOD LEVEL (test code = ALC BLD) <10 MG/DL 0-10 Results ar e to be used for medical purposes (treatment) only. Not intended for non medical purposes. Ethanol [Mass/volume] in [id number] 21:30:00* Test Item Value Reference Range Interpretation Comme nts Ethanol [Mass/volume] in Blo od (test code = 5640-8) <10 0.0-10.0 N [facility])Creatine kinase isoenzymes [interpretation] in 2023-11-23 21:30:00* Test Item Value Reference Range Interpretation Comme nts Creatine kinase isoenzymes [interpretation] in Serum or Plasma Narrative (test code = 89732-6) 115 U/L 30.0-135.0 N [facility])Comprehensive metabolic 2000 panel - Serum or P 2023-11-23 21:27:00* Test Item Value Reference Range Interpretation Comme nts Sodium [Moles/volume] in Blood (test code = 2947-0) 137 MMOL/L 137.0-145.0 N Potassium [Moles/volume] in Blood (test code = 6298-4) 4.2 MMOL/L 3.5-5.1 N Chloride [Moles/volume] in Blood (test code = 2069-3) 100 MMOL/L 98.0-107.0 N Carbon dioxide, total [Moles/volume] in Blood (test code = 43928-3) 24 MMOL/L 22.0-30.0 N Urea nitrogen [Mass/volume] in Serum or Plasma (test code = 3094-0) 16 MG/DL 7.0-17.0 N Creatinine [Mass/volume] in Blood (test code = 95356-2) 0.6 MG/DL 0.7-1.2 L Glucose [Mass/volume] in Blood (test code = 2339-0) 80 MG/DL 70.0-99.0 N Calcium [Mass/volume] in Serum or Plasma (test code = 06100-0) 10.3 MG/DL 8.4-10.2 H Protein [Mass/volume] in Serum or Plasma (test code = 2885-2) 9.9 G/DL 6.3-8.2 H Albumin [Presence] in Serum or Plasma (test code = 66540-9) 4.7 G/DL 3.5-5.0 N Bilirubin direct and total panel [Mass/volume] - Serum or Plasma (test code = 48171-9) 0.8 MG/DL 0.2-1.3 N Aspartate aminotransferase [Enzymatic [...] 50 percent [- Reported] (test code = 43636-5) 113.0 mL/min/1.73m2 N Anion gap in Serum or Plasma (test code = 60743-1) 13 mmol/L 4.0-12.0 H [facility])[id number] 21:15:00* Test Item Value Reference Range Interpretation [...] 1.2-7.2 CBC W Auto Differential panel - [id number] 21:15:00* Test Item Value Reference Range Interpretation Comme nts Leukocytes other [Identifier ] in Blood by Automated count (test code = 09328-7) 4.5 K/UL 3.5-10.9 N Erythrocytes [#/volume] in B lood (test code = 03567-2) 4.91 M/UL 4.0-5.0 N Hemoglobin A/Hemoglobin.tota l in Blood (test code = 4546-8) 13.8 G/DL 11.5-15.5 N Hematocrit [Volume Fraction] of Blood (test code = 49453-8) 42.4 % 34.0-46.0 N Erythrocyte mean corpuscular volume [Entitic volume] (test code = 57404-7) 86.4 FL 80.0-98.0 N Erythrocyte mean corpuscular hemoglobin [Entitic mass] (test code = 85896-8) 28.1 PG 28.0-32.0 N Erythrocyte mean corpuscular hemoglobin concentration [Mass/volume] (test code = 53805-2) 32.5 G/DL 32.5-36.5 N Erythrocyte distribution wid th [Ratio] (test code = 51353-1) 14.9 % 11.5-14.5 H Platelets panel - Blood by Automated count (test code = 64596-0) 124 K/UL 150.0-450.0 L Platelet mean volume [Entiti c volume] in Blood by Automated count (test code = 83398-0) 10.0 FL 7.4-10.4 N Neutrophils.segmented/100 leukocytes in Blood (test code = 66363-8) 53.3 % 40.0-75.0 N Lymphocytes Variant/100 leuk ocytes in Blood (test code = 69115-4) 33.9 % 24.0-44.0 N Lymphocytes+Monocytes/100 leukocytes in Blood (test code = 4662-3) 10.0 % 0.0-13.0 N Eosinophils [#/volume] in Bl ood (test code = 89273-4) 2.2 % 0.0-4.0 N Basophils [#/volume] in Bloo d (test code = 39271-2) 0.4 % 0.0-2.0 N Immature granulocytes/100 leukocytes in Blood (test code = 64643-1) 0.2 % 0.0-1.0 N Nucleated erythrocytes [#/vo lume] in Blood (test code = 83501-0) 0 /100 WBC N Neutrophils [#/volume] in Bl ood (test code = 34572-9) 2.4 K/UL 1.2-7.2 N [facility]PAP TEST, THINPREP, [id number] 16:02:24* Test Item Value Reference Range Interpretation Comme nts SOURCE: (test code = 8001) Cervical/Endoce rvical SLIDES: (test code = 8011) 1 LMP: (test code = 8021) SEE NOTE POST MENOPAUSAL SPECIMEN ADEQUACY: (test code = 44915) (NOTE) Satisfactory for evaluation. Endocervical cells/transformation zone component present. INTERPRETATION: (test code = 61476) NILM/NO EPITH. ABNORMALITY;SEE BELOW --- - NEGATIVE FOR INTRAEPITHELIAL LESION OR MALIGNANCY (NILM) ---- RECYCLING DIRECTOR : (test code = 8101) Jami Smalls LOCATION: (test code = 97874) (NOTE) Specimens proces sed and interpreted at [facility], [address] [place] [address], , CLIA: [id number] CPT: (test code = 8140) (NOTE) 06458 UNLESS OTH ERWISE INDICATED, COMPUTER AIDED AND RECYCLING DIRECTOR SCREENING PERFORMED. The Pap test is a screening test with an inherent, but low probability of error. Your patient should be reminded to consult you immediately if she experiences any suspicious signs or symptoms, regardless of her Pap test result. An alternate report format containing images or consolidated prior Pap history is available as applicable. HPV HIGH RISK WITH GENOTYPE, [id number] 15:53:52* Test Item Value Reference Range Interpretation Comme [facility] HPV HIGH RISK INTERP (test code = 58177) NEGATIVE NEGATIVE HPV 16 (test code = 62015) NEGATIVE HPV 18 (test code = 83707) NEGATIVE HPV, HR, OTHER GENOTYPES (test code = 39619) NEGATIVE Testing methodol ogy is real-time PCR utilizing hydrolysis probes with the Homero Sid system. The test individually detects genotypes 16 and 18, as well as the other 12 high risk types (31,33,35,39,45,51,52,56 ,58,59,66,68). The expected result is negative. A negative result does not rule out the presence of HPV not included in the genotype set, a low level of infection or specimen sampling error. UNLESS OTHERWISE INDICATED, ALL TESTING PERFORMED AT [facility] [address] [place] [address] STRAP CUTTER: JATIN FELIPE M.D. CLIA NUMBER [id number] [facility] [place]. [id number] HPV HIGH RISK WITH GENOTYPE, [id number] 00:00:00* Test Item Value Reference Range Interpretation Comme [facility] HPV HIGH RISK INTERP (test c ode = 86550) NEGATIVE HPV 16 (test code = 36098) NEGATIVE HPV 18 (test code = 88515) NEGATIVE HPV, HR, OTHER GENOTYPES (te st code = 16027) NEGATIVE PDFE (test code = PDFReport) PDF Henry ContrerasPAP TEST, THINPREP, [id number] 00:00:00* Test Item Value Reference Range Interpretation Comme nts SOURCE: (test code = 8001) Cervical/Endocervical SLIDES: (test code = 8011) 1 LMP: (test code = 8021) SEE NOTE SPECIMEN ADEQUACY: (test code = 33203) (NOTE) INTERPRETATION: (test code = 94876) NILM/NO EPITH. ABNORMALITY;SEE BELOW RECYCLING DIRECTOR: (test code = 8101) Jami Smalls LOCATION: (test code = 96218) (NOTE) CPT: (test code = 8140) (NOTE) Henry ContrerasHPV HIGH RISK WITH GENOTYPE, [id number] 00:00:00* Test Item Value Reference Range Interpretation Comme nts HPV HIGH RISK INTERP (test c ode = 74042) NEGATIVE HPV 16 (test code = 18061) NEGATIVE HPV 18 (test code = 66251) NEGATIVE HPV, HR, OTHER GENOTYPES (te st code = 46456) NEGATIVE PDFE (test code = PDFReport) PDF Henry ContrerasPAP TEST, THINPREP, [id number] 00:00:00* Test Item Value Reference Range Interpretation Comme nts SOURCE: (test code = 8001) Cervical/Endocervical SLIDES: (test code = 8011) 1 LMP: (test code = 8021) SEE NOTE SPECIMEN ADEQUACY: (test code = 54108) (NOTE) INTERPRETATION: (test code = 54608) NILM/NO EPITH. ABNORMALITY;SEE BELOW RECYCLING DIRECTOR: (test code = 8101) Jami Smalls LOCATION: (test code = 24541) (NOTE) CPT: (test code = 8140) (NOTE) Henry ContrerasPAP TEST, THINPREP, IMAGED [ADDED]2023-10-10 00:00:00* Test Item Value Reference Range Interpretation Comme nts SOURCE: (test code = 8001) Unspecified SLIDES: (test code = 8011) 2 LMP: (test code = 8021) NOT GIVEN SPECIMEN ADEQUACY: (test code = 40510) (NOTE) INTERPRETATION: (test code = 72425) UNSATISFACTORY; SEE BELOW OTHER COMMENTS: (test code = 8081) (NOTE) RECYCLING DIRECTOR: (test code = 8101) Jose Bustillos QC TECHNOLOGIST: (test code = 8111) RAUL Wilde(ASCP),IAC LOCATION: (test code = 50109) (NOTE) CPT: (test code = 8140) (NOTE) Henry F AustinHPV HIGH RISK IF ASC/LSIL, THINPREP [ADDED]2023-10-10 00:00:00* Test Item Value Reference Range Interpretation Comme nts HPV HIGH RISK IF ASC/LSIL, THINPREP (test code = 32273) CRITERIA NOT MET Henry Quiles AustinPAP TEST, THINPREP, IMAGED [ADDED]2023-10-10 00:00:00* Test Item Value Reference Range Interpretation Comme nts SOURCE: (test code = 8001) Unspecified SLIDES: (test code = 8011) 2 LMP: (test code = 8021) NOT GIVEN SPECIMEN ADEQUACY: (test code = 95856) (NOTE) INTERPRETATION: (test code = 72002) UNSATISFACTORY; SEE BELOW OTHER COMMENTS: (test code = 8081) (NOTE) RECYCLING DIRECTOR: (test code = 8101) Jose Bustillos QC TECHNOLOGIST: (test code = 8111) RAUL Wilde(ASCP),IAC LOCATION: (test code = 19190) (NOTE) CPT: (test code = 8140) (NOTE) Henry F AustinHPV HIGH RISK IF ASC/LSIL, THINPREP [ADDED]2023-10-10 00:00:00* Test Item Value Reference Range Interpretation Comme nts HPV HIGH RISK IF ASC/LSIL, THINPREP (test code = 53836) CRITERIA NOT MET Henry F AustinGONORRHEA, NAAT, THINPREP [ADDED]2023-10-08 00:00:00* Test Item Value Reference Range Interpretation Comme nts GONORRHEA, NAAT, THINPREP (t est code = 55682) NEGATIVE Henry F AustinCHLAMYDIA, NAAT, THINPREP [ADDED]2023-10-08 00:00:00* Test Item Value Reference Range Interpretation Comme nts CHLAMYDIA, NAAT, THINPREP (t est code = 73864) NEGATIVE PDFE (test code = PDFReport) PDF Henry ContrerasGONORRHEA, NAAT, THINPREP [ADDED]2023-10-08 00:00:00* Test Item Value Reference Range Interpretation Comme nts GONORRHEA, NAAT, THINPREP (t est code = 72233) NEGATIVE Henry ContrerasCHLAMYDIA, NAAT, THINPREP [ADDED]2023-10-08 00:00:00* Test Item Value Reference Range Interpretation Comme nts CHLAMYDIA, NAAT, THINPREP (t est code = 48927) NEGATIVE PDFE (test code = PDFReport) PDF Henry Griffin THIRD [id number] 08:14:44* Test Item Value Reference Range Interpretation Comme nts TSH, THIRD GENERATION (test code = 2821) 5.200 UIU/ML 0.400-4.100 H UNLESS OTHERWISE INDICATED, ALL TESTING PERFORMED AT [facility] [address] [place] [address] STRAP CUTTER: JATIN FELIPE M.D. CLIA NUMBER [id number] [facility] [place]. [id number] 00:00:00* Test Item Value Reference Range Interpretation Comme nts TSH, THIRD GENERATION (test code = 2821) 5.200 UIU/ML Henry [id number] 00:00:00* Test Item Value Reference Range Interpretation Comme nts TSH, THIRD GENERATION (test code = 2821) 5.200 UIU/ML Henry Griffin THIRD [id number] 23:53:27* Test Item Value Reference Range Interpretation Comme nts TSH, THIRD GENERATION (test code = 2821) 11.100 UIU/ML 0.400-4.100 H COMPREHENSIVE METABOLIC [id number] 23:46:03* Test Item Value Reference Range Interpretation Comme nts GLUCOSE (test code = 2217) 97 MG/DL 70-99 BUN (test code = 2208) 7 MG/DL 6-20 CREATININE (test code = 2214) 0.61 MG/DL 0.60-1.30 eGFR (2020 CKD-EPI) (test code = 84965) 110 ML/MIN/1.73 >60 CALC BUN/CREAT (test code = 223) 11 RATIO 6-28 SODIUM (test code = [...] 70 U/L 40-125 AST (test code = 8) 20 U/L 9-40 ALT (test code = 221) 13 U/L 5-40 CBC W/AUTO DIFF WITH [id number] 08:48:44* Test Item Value Reference Range Interpretation [...] 0.00-0.10 ABS NUCLEATED RBCS (test code = 90027) 0.00 K/UL 0.00-0.11 UNLESS OTHER MONTOYA INDICATED, ALL TESTING PERFORMED AT [facility] [address] [place] [address] STRAP CUTTER: JATIN FELIPE M.D. CLIA NUMBER [id number] [facility] [place]. [id number] 00:00:00* Test Item Value Reference Range Interpretation Comme nts TSH, THIRD GENERATION (test code = 2821) 11.100 UIU/ML [facility] W/AUTO [id number] 00:00:00* Test Item Value Reference Range Interpretation [...] ABS NUCLEATED RBCS (test cod e = 89688) 0.00 K/UL Henry ContrerasCOMPREHENSIVE METABOLIC [id number] 00:00:00* Test Item Value Reference Range Interpretation Comme nts GLUCOSE (test code = 2217) 97 MG/DL BUN (test code = 2208) 7 MG/DL CREATININE (test code = 2214) 0.61 MG/DL eGFR (2020 CKD-EPI) (test code = 39040) 110 ML/MIN/1.73 CALC BUN/CREAT (test code = [...] (test code = 2219) 13 U/L Henry Quiles [id number] 00:00:00* Test Item Value Reference Range Interpretation Comme nts TSH, THIRD GENERATION (test code = 2821) 11.100 UIU/ML Henry ContrerasCBC W/AUTO [id number] 00:00:00* Test Item Value Reference Range Interpretation [...] ABS NUCLEATED RBCS (test cod e = 90119) 0.00 K/UL Henry ContrerasCOMPREHENSIVE METABOLIC [id number] 00:00:00* Test Item Value Reference Range Interpretation Comme nts GLUCOSE (test code = 2217) 97 MG/DL BUN (test code = 2208) 7 MG/DL CREATININE (test code = 2214) 0.61 MG/DL eGFR (2020 CKD-EPI) (test code = 80580) 110 ML/MIN/1.73 CALC BUN/CREAT (test code = [...] 0.2 MG/DL ALKALINE PHOSPHATASE (test code = 220) 70 U/L AST (test code = 2218) 20 U/L ALT (test code = 2219) 13 U/L Henry [id number] 01:13:06* Test Item Value Reference Range Interpretation Comme nts TRANSFERRIN (test code = 4936) 315 MG/DL 200-360 UNLESS OTHERWISE INDICATED, ALL TESTING PERFORMED AT [facility] [address] [place] [address] STRAP CUTTER: JATIN FELIPE M.D. CLIA NUMBER [id number] [facility] [place]. [id number] LIPID [id number] 01:12:48* Test Item Value Reference Range Interpretation [...] = 2238) 1.34 RATIO <3.22 COMPREHENSIVE METABOLIC [id number] 01:12:48* Test Item Value Reference Range Interpretation [...] IRON BINDING CAPACITY AND IRON AND % [id number] 01:12:48* Test Item Value Reference Range Interpretation Comme nts IRON, SERUM (test code = 2221) 51 UG/DL 37-145 UNSATURATED IBC (test code = 10662) 356 UG/DL 112-347 H CALC TOTAL IBC (test code = 2076) 407 UG/DL 250-450 CALC % IRON SAT (test code = 2078) 13 % 20-50 L [id number] 00:59:24* Test Item Value Reference Range Interpretation Comme nts FERRITIN (test code = 2074) 20 NG/ML 13-200 LIPID [id number] 00:00:00* Test Item Value Reference Range Interpretation Comme nts CHOLESTEROL (test code = 2210) 191 MG/DL TRIGLYCERIDES (test code = 2232) 89 MG/DL HDL CHOLESTEROL (test code = 2220) 74 MG/DL CALC LDL CHOL (test code = 2237) 99 MG/DL RISK RATIO LDL/HDL (test cod e = 2238) 1.34 RATIO Henry ContrerasCOMPREHENSIVE METABOLIC [id number] 00:00:00* Test Item Value Reference Range Interpretation Comme nts GLUCOSE (test code = 2217) 92 MG/DL BUN (test code = 2208) 15 MG/DL CREATININE (test code = 2214) [...] 9.8 MG/DL PROTEIN, TOTAL (test code = 2229) 7.8 G/DL ALBUMIN (test code = 2201) 3.9 G/DL CALC GLOBULIN (test code = 2240) 3.9 G/DL CALC A/G RATIO (test code = 2234) 1.0 RATIO BILIRUBIN, TOTAL (test code = 2207) <0.2 MG/DL ALKALINE PHOSPHATASE (test code = 2204) 73 U/L AST (test code = 2218) 15 U/L ALT (test code = 2219) 7 U/L Henry ContrerasIRON BINDING CAPACITY AND IRON AND % [id number] 00:00:00* Test Item Value Reference Range Interpretation Comme nts IRON, SERUM (test code = 2221) 51 UG/DL UNSATURATED IBC (test code = ) 356 UG/DL CALC TOTAL IBC (test code = 2076) 407 UG/DL CALC % IRON SAT (test code = 2078) 13 % Henry [id number] 00:00:00* Test Item Value Reference Range Interpretation Comme nts FERRITIN (test code = 2074) 20 NG/ML Henryjoseph [id number] 00:00:00* Test Item Value Reference Range Interpretation Comme nts TRANSFERRIN (test code = 4936) 315 MG/DL Henry ContrerasLIPID [id number] 00:00:00* Test Item Value Reference Range Interpretation Comme nts CHOLESTEROL (test code = 2210) 191 MG/DL TRIGLYCERIDES (test code = 2232) 89 MG/DL HDL CHOLESTEROL (test code = 2220) 74 MG/DL CALC LDL CHOL (test code = 2237) 99 MG/DL RISK RATIO LDL/HDL (test cod e = 2238) 1.34 RATIO Henry ContrerasCOMPREHENSIVE METABOLIC [id number] 00:00:00* Test Item Value Reference Range Interpretation Comme nts GLUCOSE (test code = 2217) 92 MG/DL BUN (test code = 2208) 15 MG/DL CREATININE (test code = 2214) 0.65 MG/DL eGFR (2020 CKD-EPI) (test code = 18177) 108 ML/MIN/1.73 CALC BUN/CREAT (test code = 2235) 23 RATIO SODIUM (test code = 2231) 135 MEQ/L POTASSIUM (test code = 2228) 4.2 MEQ/L CHLORIDE (test code = 2215) 99 MEQ/L CARBON DIOXIDE (test code = 2206) 24 MEQ/L CALCIUM (test code = 2209) 9.8 MG/DL PROTEIN, TOTAL (test code = 2229) 7.8 G/DL ALBUMIN (test code = 2201) 3.9 G/DL CALC GLOBULIN (test code = 2240) 3.9 G/DL CALC A/G RATIO (test code = 2234) 1.0 RATIO BILIRUBIN, TOTAL (test code = 2207) <0.2 MG/DL ALKALINE PHOSPHATASE (test code = 2204) 73 U/L AST (test code = 2218) 15 U/L ALT (test code = 2219) 7 U/L Henry ContrerasIRON BINDING CAPACITY AND IRON AND % [id number] 00:00:00* Test Item Value Reference Range Interpretation Comme nts IRON, SERUM (test code = 2221) 51 UG/DL UNSATURATED IBC (test code = ) 356 UG/DL CALC TOTAL IBC (test code = 7) 407 UG/DL CALC % IRON SAT (test code = 2078) 13 % Henry [id number] 00:00:00* Test Item Value Reference Range Interpretation Comme shaina FERRITIN (test code = 207) 20 NG/ML Henry [id number] 00:00:00* Test Item Value Reference Range Interpretation Comme shaina TRANSFERRIN (test code = 4936) 315 MG/DL Henry ContrerasHEMOGLOBIN [id number] 03:08:40* Test Item Value Reference Range Interpretation Comme nts HEMOGLOBIN A1c (test code = 86948) 5.5 % 4.2-5.6 CBC W/AUTO DIFF WITH [id number] 02:29:36* Test Item Value Reference Range Interpretation [...] = 1065) 0.0 /100 WBC'S See_Comment [Automated [employer] ge] The system which generated this result [...] 0.00-0.10 ABS NUCLEATED RBCS (test code = 45634) 0.00 K/UL 0.00-0.11 CBC W/AUTO [id number] 00:00:00* Test Item Value Reference Range Interpretation [...] ABS NUCLEATED RBCS (test cod e = 91505) 0.00 K/UL Henry F AustinHEMOGLOBIN [id number] 00:00:00* Test Item Value Reference Range Interpretation Comme nts HEMOGLOBIN A1c (test code = 47202) 5.5 % Henry ContrerasCBC W/AUTO [id number] 00:00:00* Test Item Value Reference Range Interpretation [...] ABS NUCLEATED RBCS (test cod e = 75619) 0.00 K/UL Henry ContrerasHEMOGLOBIN [id number] 00:00:00* Test Item Value Reference Range Interpretation Comme [facility] HEMOGLOBIN A1c (test code = 60668) 5.5 % Henry ContrerasDRUGS OF [id number] 05:03:00* Test Item Value Reference Range Interpretation [...] 200 ng/mL Opiates 300 ng/mL URINALYSIS WITH [id number] 04:56:00* Test Item Value Reference Range Interpretation [...] (test code = USPERM) /HPF NONE URINE [id number] 04:53:00* Test Item Value Reference Range Interpretation [...] the FDA and the [employer] ([employer]) are more stringent than those required for this test. Therefore, the result should be interpreted with caution and close attention to other clinical and epidemiological data [id number] 16:00:00* Test Item Value Reference Range Interpretation Comme nts SALICYLATE (test code = 94B) <3.0 mg/dL 15.0-30.0 L LIVER [id number] 15:49:00* Test Item Value Reference Range Interpretation [...] code = 31A) <7 IU/L 10-49 L [id number] 15:48:00* Test Item Value Reference Range Interpretation [...] to interpret this result as normal/abnormal. 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 Old healed fractures of the distal tibia and fibular noted.Soft tissues: Unremarkable.IMPRESSION: No acute findings.Electronically signed by: Nikko Santiago MD 11/04/2022 3:10 PM CDT [id number] BEDSIDE [id number] 11:51:00* Test Item Value Reference Range Interpretation Comme nts GLUCOSE BEDSIDE TESTING (karen t code = GLUBED) 79 MG/DL 70-119 N GLUCOSE BEDSIDE [id number] 06:23:00* Test Item Value Reference Range Interpretation Comme nts GLUCOSE BEDSIDE TESTING (karen t code = GLUBED) 80 MG/DL 70-119 N BASIC METABOLIC [id number] 05:12:00* Test Item Value Reference Range Interpretation [...] 2.0 <2.0 indicates None DetectedPerformed At: [facility] [address] [id number] Kyle L MD Ph:[phone] GLUCOSE BEDSIDE [id number] 19:51:00* Test Item Value Reference Range Interpretation Comme nts GLUCOSE BEDSIDE TESTING (karen t code = GLUBED) 129 MG/DL 70-119 H OSMOLALITY [id number] 17:56:00* Test Item Value Reference Range Interpretation Comme nts OSMOLALITY SERUM (test code = OSMO) 269 mOsm/kg 275-300 L THYROID STIMULATING [id number] 17:56:00* Test Item Value Reference Range Interpretation Comme nts THYROID STIMULATING HORMONE (test code = TSH) 4.190 mc IU/ML 0.340-4.820 N GLUCOSE BEDSIDE [id number] 15:49:00* Test Item Value Reference Range Interpretation [...] code = VALP) 37.5 mcG/ML 50.0-100.0 L [id number] 14:26:00* Test Item Value Reference Range Interpretation Comme nts AMMONIA (test code = AMM) 29.0 mcMOL/L 11.0-32.0 N GLUCOSE BEDSIDE [id number] 11:51:00* Test Item Value Reference Range Interpretation Comme nts GLUCOSE BEDSIDE TESTING (karen t code = GLUBED) 88 MG/DL 70-119 N GLYCOSYLATED HEMOGLOBIN (HA1C)2022-09-18 06:53:00* Test Item Value Reference Range Interpretation Comme nts GLYCOSYLATED HEMOGLOBIN (HA1 C) (test code = GLYHGB) 5.2 % IS-A1C 4.5-5.6 N ESTIMATED AVERAGE [id number] 06:53:00* Test Item Value Reference Range Interpretation [...] to interpret this result as normal/abnormal. UR [id number] 21:28:00* Test Item Value Reference Range Interpretation Comme nts UR SODIUM RANDOM (test code = JESUSITA) 93 mmol/L 40-200 N UR POTASSIUM RANDOM (test code = KU) 54.8 mmol/L 25-125 N NO ESTABLISHED NORMAL RANGES FOR RANDOM SPECIMENS. UR CHLORIDE RANDOM (test code = CLU) 164 mmol/L 110-150 H UR OSMOLALITY [id number] 21:28:00* Test Item Value Reference Range Interpretation Comme nts UR OSMOLALITY RANDOM (test c ode = OSMOU) 475 mOsm/kg 100-1400 N CBC W/O [id number] 20:05:00* Test Item Value Reference Range Interpretation [...] = MPV) 9.5 fL 6.8-11.2 N LACTIC [id number] 19:35:00* Test Item Value Reference Range Interpretation Comme nts LACTIC ACID (test code = LACT) 1.0 mmol/L 0.4-2.0 N HCG SERUM [id number] 19:31:00* Test Item Value Reference Range Interpretation Comme nts HCG SERUM QUAL (test code = HCGQL) Negative SCREEN NEG - CT HEAD/BRAIN W/O [id number] 18:59:00 [facility]ON[facility] : 1975 Sex: F Patient Name: BHUMIKA JONES Unit No: [id number] EXAMS: CPT CODE: [id number] CT HEAD/BRAIN W/O CONT 77718 Location: H3 CT head, conducted on 09/17/22 [...] MALA Marie(Abner)(CT) CTDI: DLP: Trnscrpt: 09/17/2022 (1858) NadiyaDAS6 [facility] NAME: BHUMIKA JONES [address] [place] [address] Bl PHYS: Valentina Mattson MDFe [employer], [place] [address] : 1975 AGE: 47 SEX: F LOC: MITCHELLED 20 PHONE #: [phone] EXAM DATE: 09/17/2022 STATUS: ADM IN FAX #: [phone] RAD #: D/C DT PAGE 1 Signed Report Patient Name: BHUMIKA JONES Unit No: [id number] EXAMS: CPT CODE: [id number] CT HEAD/BRAIN W/O CONT 80250 (Continued) Orig Print D/T: S: 09/17/2022 (1902) DENIZ Luog NAME: [address] PHYS: Vlaentina Mattson MD [place] [address] : 1975 AGE: 47 SEX: F LOC: MITCHELLED 20 PHONE #: [phone] EXAM DATE: 09/17/2022 STATUS: ADM IN FAX #: [phone] RAD #: D/C DT PAGE 2 Signed ReportURINALYSIS [id number] 16:28:00* Test Item Value Reference Range Interpretation [...] >0 /UL NONE-SQepi DRUGS OF ABUSE SCREEN [id number] 16:28:00* Test Item Value Reference Range Interpretation [...] interpret this result as normal/abnormal. TROP-I HIGH [id number] 16:26:00* Test Item Value Reference Range Interpretation [...] and URLs may vary bymethod. BASIC METABOLIC [id number] 16:25:00* Test Item Value Reference Range Interpretation [...] interpret this result as normal/abnormal. HEPATIC FUNCTION [id number] 16:25:00* Test Item Value Reference Range Interpretation [...] ode = CK) 92 Unit/L 26-192 N [id number] 16:25:00* Test Item Value Reference Range Interpretation Comme nts LIPASE (test code = LIP) 57 Unit/L 114-286 L - CT HEAD/BRAIN W/O [id number] 00:32:00 [facility]ON[facility] : 1975 Sex: F Patient Name: BHUMIKA JONES Unit No: [id number] EXAMS: CPT CODE: [id number] CT HEAD/BRAIN W/O CONT 30282 EXAM: - CT HEAD/BRAIN W/O CONT LOCATION: [...] is no evidence of an acute territorial infarct . There is no mass effect, midline shift, [...] by: Jess Iglesias MD CC:Dictated Date/Time: 09/17/2022 (003) Technologist: Terry August CTDI: DLP: Trnscrpt: 09/17/2022 (31) [email or web address] [facility] NAME: BHUMIKA JONES [address] [place] [address] PHYS: [email or web address] - Asim Jack [place] [employer], [place] [address] : 1975 AGE: 47 SEX: F LOC: [facility] PHONE #: [phone] EXAM DATE: 09/16/2022 STATUS: REG ER FAX #: [phone] RAD #: D/C DT PAGE 1 S igned Report Patient Name: BHUMIKA JONES Unit No: [id number] EXAMS: CPT CODE: [id number] CT HEAD/BRAIN W/O CONT 91415 (Continued) Orig Print D/T: S: 09/17/2022 (0035) DENIZ Lugo NAME: BHUMIKA JONES [address] [place] [address] PHYS: [email or web address] - Asim Jack MD, [place] [address] : 1975 AGE: 47 SEX: F LOC: [facility] PHONE #: [phone] EXAM DATE: 09/16/2022STATUS: REG ER FAX #: [phone] RAD #: D/C DT PAGE 2 Signed Report TROP-I HIGH [id number] 00:13:00* Test Item Value Reference Range Interpretation [...] and URLs may vary bymethod. COMPREHENSIVE METABOLIC [id number] 00:11:00* Test Item Value Reference Range Interpretation [...] interpret this result as normal/abnormal. CBC W/AUTO [id number] 23:59:00* Test Item Value Reference Range Interpretation [...] K/mm3 0.0-0.05 N - XR CHEST 1 [id number] 23:34:00 [facility] BH[facility]ON[facility] : 1975 Sex: FBrewster: E St: PRE -- Patient Name: BHUMIKA JONES Unit No: [id number] EXAMS: CPT CODE: [id number] XR CHEST 1 V 25008 EXAMINATION: - XR CHEST 1 V CLINICAL [...] Flo Jansen MD CC: Dictated Date/Time: 09/16/2022 (2454)Technologist: Muna Monet Transcribed Date/Time: 09/16/2022 (637) By: NadiyaJH12 Orig Print D/T: S: 09/16/2022 (6581) DENIZ Lugo NAME: BHUMIKA JONES [address] [place] [address] PHYS: PATCA.02 - Asim Jack MD, [place] [address] : 1975 AGE: 47 SEX: F LOC: B.ERS PHONE #: [phone] EXAM DATE: 09/16/2022 STATUS: PRE ER FAX #: [phone] RAD NO: DC Dt: PAGE 1 Signed ReportCARBAMAZEPINE (TEGRETOL) 2022-09-15 06:12:00* Test Item Value Reference Range Interpretation Comme nts CARBAMAZEPINE (TEGRETOL) (test code = CARB) 1.5 ug/mL 4.0-12.0 L In conjunction w ith other antiepileptic drugs Therapeutic 4.0 - 8.0 Toxicity 9.0 - 12.0 Carbamazepine alone Therapeutic 8.0 - 12.0 Detection Limit = 2.0 <2.0 indicates None DetectedPerformed At: [facility] [address] [id number] Michael Reeves MD Ph:[phone] VALPROIC ACID (DEPAKENE)2022-09-15 06:12:00* Test Item Value Reference Range Interpretation Comme nts VALPROIC ACID (DEPAKENE) (te st code = VALP) 80.6 mcG/ML 50.0-100.0 N COMPREHENSIVE METABOLIC [id number] 06:00:00* Test Item Value Reference Range Interpretation [...] interpret this result as normal/abnormal. CBC W/AUTO [id number] 05:37:00* Test Item Value Reference Range Interpretation [...] NRBC#) 0.00 K/mm3 0.0-0.05 N GLUCOSE BEDSIDE [id number] 20:03:00* Test Item Value Reference Range Interpretation Comme nts GLUCOSE BEDSIDE TESTING (karen t code = GLUBED) 117 MG/DL 70-119 N DRUGS OF ABUSE SCREEN [id number] 11:42:00* Test Item Value Reference Range Interpretation [...] result as normal/abnormal. - CT HEAD/BRAIN W/O [id number] 11:37:00 [facility] BHUM[facility]ON[facility] : 1975 Sex: F Patient Name: BHUMIKA JONES Unit No: [id number] EXAMS: CPT CODE: [id number] CT HEAD/BRAIN W/O CONT 01316 EXAMINATION: - CT HEAD/BRAIN W/O CONT COMPARISON: [...] CASTELLANO CTDI: DLP: Trnscrpt: 09/14/2022 (1137) [id number] DENIZ Lugo NAME: BHUMIKA JONES [facility] PHYS: Vladimir Menchaca MD [address] [place], [place] [address]VD : 1975 AGE: 47 SEX: RAFI BUTT [facility] LOC: NEHA 10 PHONE #: [phone] EXAM DATE: 09/14/2022 STATUS: ADM IN FAX #: [phone] RAD #: D/C DT PAGE 1 Signed Report Patient Name: BHUMIKA JONES Unit No: [id number] EXAMS: CPT CODE: [id number] CT HEAD/BRAIN W/O CONT 11803 (Continued) Orig Print D/T: S: 09/14/2022 (1140) DENIZ Lugo NAME: BHUMIKA JONES [facility] PHYS: Vladimir Menchaca MD [address] [place] [address] : 1975 AGE: 47 SEX: Etta [place] [address] LOC: NEHA Cintron PHONE #: [phone] EXAM DATE: 09/14/2022 STATUS: ADM IN FAX #: [phone] RAD #: D/C DT PAGE 2 Signed ReportPT AND [id number] 06:51:00* Test Item Value Reference Range Interpretation [...] AVOIDED DUE TO POSSIBLE HEPARINCONTAMINATION HCG SERUM [id number] 06:51:00* Test Item Value Reference Range Interpretation [...] CK) 268 Unit/L 26-192 H CBC W/AUTO [id number] 03:43:00* Test Item Value Reference Range Interpretation [...] = NRBC#) 0.00 K/mm3 0.0-0.05 N URINALYSIS [id number] 03:41:00* Test Item Value Reference Range Interpretation [...] RARE /LPF NONE - XR CHEST 2 [id number] 02:06:00 [facility]: BHUMIKA JONES : 1975 Sex: F FAX: Suleman Carvalho [facility] [phone] [place]: E St: REG Patient Name: BHUMIKA JONES Unit No: [id number] EXAMS: CPT CODE: [id number] XR CHEST 2 V 60886 EXAM: - XR CHEST 2 V HISTORY: [...] signed by: Igor Almonte MD CC: Suleman MIRANDA HuvalDictated Date/Time: 09/14/2022 (205)Technologist: SULEMAN JACQUES (R) Transcribed Date/Time: 09/14/2022 (205) By: [email or web address] Orig Print D/T: S: 09/14/2022 (208) [facility]ENTERWiliam [facility] NAME: ROB[address] PHYS: LUDWIGAD - Suleman [place], [place] [address] : 1975 AGE: 47 SEX: F LOC: MARCOS PHONE #: [phone] EXAM DATE: 09/14/2022 STATUS: REG ER FAX #: [phone] RAD NO: DC Dt: PAGE 1 Signed ReportCOMPREHENSIVE METABOLIC [id number] 12:49:00* Test Item Value Reference Range Interpretation [...] used to interpret this result as normal/abnormal. [id number] 12:49:00* Test Item Value Reference Range Interpretation Comme nts MAGNESIUM (test code = MAG) 1.7 MG/DL 1.6-2.6 N CBC W/AUTO [id number] 12:36:00* Test Item Value Reference Range Interpretation [...] RARE /LPF NONE DRUGS OF ABUSE SCREEN [id number] 00:33:00* Test Item Value Reference Range Interpretation [...] 300 ng/mL UA RFLX MICR CULT IF [id number] 00:30:00* Test Item Value Reference Range Interpretation [...] culture: Suprapubic PainSpecimen Description: CLEAN CATCHBASIC METABOLIC [id number] 00:18:00* Test Item Value Reference Range Interpretation [...] 8.9 mg/dl 8.0-10.5 N HEPATIC FUNCTION PANEL [id number] 00:18:00* Test Item Value Reference Range Interpretation [...] ALKP) 113 Units/L 50.0-136.0 N HCG SERUM [id number] 00:18:00* Test Item Value Reference Range Interpretation Comme nts HCG SERUM QUAL (test code = HCGQL) NEGATIVE NEGATIVE [id number] 00:18:00* Test Item Value Reference Range Interpretation Comme nts ALCOHOL (test code = ALC) 0.00 gm/dL 0.00-0.00 N ETHYL ALCOHOL MIRELLA HARRELL - INTERPRETATION: 0.050 GM/DL - NOT INTOXICATED 0.100 GM/DL - INTOXICATED 0.350-0.450 GM/DL - SEVERELY INTOXICATED 0.550 GM/DL- FATAL INTOXICATION Coronavirus 2019 nCoV [id number] 00:09:00* Test Item Value Reference Range Interpretation Comme nts Coronavirus 2019 nCoV Bedside (test code = [id number]) Negative NEGATIVE Negative results should be treated as presumptive and ifinconsistent with clinical signs and symptoms, or necessaryfor patient management, should be tested with an alternativemolecular assay. Negative results do not preclude PBTT-RsL-5rhojgghow and should not be used as the sole basis forpatient management decisions. Negative results should beconsidered in the context of a patient's recent exposures,history, presence of clinical signs and symptoms consistentwith COVID-19. CBC W/AUTO [id number] 23:58:00* Test Item Value Reference Range Interpretation [...] X10 3uL 0.00-0.01 N COMP. METABOLIC PANEL (68123)2022-09-07 02:12:41* Test Item Value Reference Range Interpretation Comme nts NA (test code = 2485341698) 133 mmol/L 135-145 L K (test code = 2258425118) 4.4 mmol/L 3.5-5.0 CL (test code = 6706203590) 102 mmol/L 98-108 CO2 TOTAL (test code = 8726540922) 25 mmol/L 23-31 AGAP (test code = 5946205369) 6 2-16 BUN (test code = 8553300950) 22 mg/dL 7-23 GLUCOSE (test code = 4393482190) 97 mg/dL 70-110 CREATININE (test code = 5553590893) 0.40 mg/dL 0.50-1.04 L TOTAL BILI (test code = 8772032478) 0.3 mg/dL 0.1-1.1 CALCIUM (test code = 9664876970) 8.9 mg/dL 8.6-10.6 T PROTEIN (test code = 8649014937) 7.7 g/dL 6.3-8.2 ALBUMIN (test code = 7322527758) 4.0 g/dL 3.5-5.0 ALK PHOS (test code = 3205313484) 104 U/L 34-122 ALTv (test code = 1742-6) 15 U/L 5-35 AST(SGOT) (test code = 4100914181) 22 U/L 13-40 eGFR (test code = 4292182814) 170.4 mL/min/1.73m2 HANNAH (test code = HANNAH) [...] imaging tests). Lab Interpretation (test code = 93205-5) Abnormal [facility] WITH [id number] 02:01:20* Test Item Value Reference Range Interpretation Comme nts WBC (test code = 6690-2) 6.17 See_Comment [Automated Picket] The system which generated this result transmitted reference range: 4.30 - 11.10 10*3/?L. The reference range was not used to interpret this result as normal/abnormal. RBC (test code = 789-8) 3.73 See_Comment L [Automated Picket] The system which generated this result transmitted [...] 32.9 g/dL 31.6-35.1 RDW-SD (test code = 81568-3) 48.1 fL 39.0-49.9 RDW-CV (test code = 788-0) 14.7 % 12.0-15.5 PLT (test code = 777-3) 272 See_Comment [Automated messa ge] The system which generated this result transmitted reference range: 166 - 358 10*3/?L. The reference range was not used to interpret this result as normal/abnormal. MPV (test code = 26099-4) 9.6 fL 9.5-12.9 NRBC/100 WBC (test code = 5776153879) 0.0 See_Comment [Automated [employer] ssage] The system which generated this result transmitted reference range: 0.0 - 10.0 /100 WBCs. The reference range was not used to interpret this result as normal/abnormal. NRBC x10^3 (test code = 1149749523) See_Comment [Automated messa ge] The system which generated this result transmitted reference range: 10*3/?L. The reference range was not used to interpret this result as normal/abnormal. GRAN MAT (NEUT) % (test code = 770-8) 42.2 % IMM GRAN % (test code = 9032200029) 0.20 % LYMPH % (test code = 736-9) 38.2 % MONO % (test code = 5905-5) 12.6 % EOS % (test code = 713-8) 5.8 % BASO % (test code = 706-2) 1.0 % GRAN MAT x10^3(ANC) (test code = 4580366520) 2.60 10*3/uL 1.88-7.09 IMM GRAN x10^3 (test code = 8771004269) 0.00-0.06 LYMPH x10^3 (test code = 731-0) 2.36 10*3/uL 1.32-3.29 MONO x10^3 (test code = 742-7) 0.78 10*3/uL 0.33-0.92 EOS x10^3 (test code = 711-2) 0.36 10*3/uL 0.03-0.39 BASO x10^3 (test code = 704-7) 0.06 10*3/uL 0.01-0.07 Lab Interpretation (test code = 14212-9) [facility] by RT-PCR (HIGH RISK) 2020-08-19 00:00:00* Test Item Value Reference Range Interpretation Comme nts SARS-CoV-2 INTERPRETATION (t est code = 72432) NEGATIVE SOURCE (test code = 84428) NOT SPECIFIED Henry Quiles ZmvthiSYEY-TfO-3 (COVID-19) by RT-PCR (HIGH RISK)2020-08-19 00:00:00* Test Item Value Reference Range Interpretation Comme nts SARS-CoV-2 INTERPRETATION (t est code = 37212) NEGATIVE SOURCE (test code = 40424) NOT SPECIFIED Henry Quiles AustinHPV HIGH RISK WITH GENOTYPE, [id number] 00:00:00* Test Item Value Reference Range Interpretation Comme nts HPV HIGH RISK INTERP (test c ode = 35368) NEGATIVE HPV 16 (test code = 14720) NEGATIVE HPV 18 (test code = 63303) NEGATIVE HPV, HR, OTHER GENOTYPES (te st code = 80223) NEGATIVE Henry ContrerasPAP TEST, THINPREP, [id number] 00:00:00* Test Item Value Reference Range Interpretation Comme nts SOURCE: (test code = 8001) Cervical/Endocervical SLIDES: (test code = 8011) 1 LMP: (test code = 8021) 06/2017 SPECIMEN ADEQUACY: (test code = 96994) (NOTE) INTERPRETATION: (test code = 79795) NILM/NO EPITH. ABNORMALITY;SEE BELOW RECYCLING DIRECTOR: (test code = 8101) KANA Hamlin(ASCP) IAC LOCATION: (test code = 11168) (NOTE) CPT: (test code = 8140) (NOTE) Henry Quiles AustinHPV HIGH RISK WITH GENOTYPE, [id number] 00:00:00* Test Item Value Reference Range Interpretation Comme nts HPV HIGH RISK INTERP (test c ode = 39835) NEGATIVE HPV 16 (test code = 50648) NEGATIVE HPV 18 (test code = 86636) NEGATIVE HPV, HR, OTHER GENOTYPES (te st code = 10657) NEGATIVE Henry ContrerasPAP TEST, THINPREP, [id number] 00:00:00* Test Item Value Reference Range Interpretation Comme nts SOURCE: (test code = 8001) Cervical/Endocervical SLIDES: (test code = 8011) 1 LMP: (test code = 8021) 06/2017 SPECIMEN ADEQUACY: (test code = 44703) (NOTE) INTERPRETATION: (test code = 10897) NILM/NO EPITH. ABNORMALITY;SEE BELOW RECYCLING DIRECTOR: (test code = 8101) KANA Hamlin(ASCP) IAC LOCATION: (test code = 70703) (NOTE) CPT: (test code = 8140) (NOTE) Henry ContrerasCT HEAD WO [id number] 22:34:12Impression: 1. ?No acute intracranial process. 2. [...] he patient. Please correlate with history and physicalexamination.[facility] CERVICAL SPINE 2 [id number] 22:29:40No acute osseous abnormality. Preliminary Report Dictated [...] reviewed this study and agree with theabove report.[facility] ClinicCBC WITH [id number] 21:46:00* Test Item Value Reference Range Interpretation [...] 32.2 g/dL 31.6-35.1 RDW-SD (test code = 05964-2) 45.1 fL 39-49.9 RDW-CV (test code = 788-0) 14.6 % 12-15.5 PLT (test code = 777-3) See_Comment L [Automated messa ge] The system which generated this result transmitted reference range: 166 - 358 10*3/?L. The reference range was not used to interpret this result as normal/abnormal. MPV (test code = 22881-5) 9.0 fL 9.5-12.9 L NRBC/100 WBC (test code = 5844475077) See_Comment [Automated [employer] ssage] The system which generated this result transmitted reference range: 0.0 - 10.0 /100 WBCs. The reference range was not used to interpret this result as normal/abnormal. NRBC x10^3 (test code = 3093313044) <0.01 See_Comment [Automated messa ge] The system which generated this result transmitted reference range: 10*3/?L. The reference range was not used to interpret this result as normal/abnormal. GRAN MAT (NEUT) % (test code = 770-8) 51.3 % IMM GRAN % (test code = 1399410476) 0.40 % LYMPH % (test code = 736-9) 24.4 % MONO % (test code = 5905-5) 23.1 % EOS % (test code = 713-8) 0.4 % BASO % (test code = 706-2) 0.4 % GRAN MAT x10^3(ANC) (test code = 4346179906) 2.48 10*3/uL 1.88-7.09 IMM GRAN x10^3 (test code = 1493248522) <0.03 0-0.06 LYMPH x10^3 (test code = 731-0) 1.18 10*3/uL 1.32-3.29 L MONO x10^3 (test code = 742-7) 1.12 10*3/uL 0.33-0.92 H EOS x10^3 (test code = 711-2) <0.03 0.03-0.39 L BASO x10^3 (test code = 704-7) <0.03 0.01-0.07 Lab Interpretation (test code = 74999-9) Abnormal [facility] CERV[facility] SP[facility] 2 [id number] 03:28:03No acute osseous abnormality. Preliminary Report Dictated [...] this study and agree withthe above report. [facility] ClinicValproic Acid [id number] 08:03:22* Test Item Value Reference Range Interpretation Comme nts Valproic Acid Level (test co de = Valproic Acid Level) 57.6 ug/mL(g) 50.0-100.0 Hemoglobin [id number] 09:36:00* Test Item Value Reference Range Interpretation Comme nts Hemoglobin A1c (test code = Hemoglobin A1c) 5.0 % 4.8-5.9 Non Diabetic 4.8-5.9%Diabetic <7.0% CT Shoulder w/o Contrast Gyix4872-74-08 16:49:13Patient: BHUMIKA JONES Date/Time01/09/2019 16:14 CDTReason for [...] Adam FSigned (Electronic Signature): 01/09/2019 4:49 pmRPR Kxkphtzevij3749-15-61 21:33:20* Test Item Value Reference Range Interpretation [...] 04-23-2020 N XR Shoulder Complete 2+ Views [id number] 15:41:25Patient: BHUMIKA JONES Date/Time01/07/2019 15:25 CDTReason for Examleft shoulder pain;Pain (please specify)ReportDictation location R 16Left shoulder 3 viewsHISTORY: PainCOMMENT:Frontal radiographs of patient's left shoulder were obtained. The humerus was in internal and external rotation.The examination demonstrates no radiographic evidence for acute or destructive bony change. The glenohumeral joint space is unremarkable. The AC joint is slightly narrowed. There aremultiple radiopacities adjacent to the greater tuberosity suggestive of rotator cuff tendinopathy.IMPRESSION:1. No acute findings of the left shoulder.2. Findings suggestive of rotator cuff tendinopathy. Final Dictated by: MD Paige Phebe CDictated DT/TM: 01/07/2019 3:39 pmSigned by: MD Paige Phebe CSigned (Electronic Signature): 01/07/2019 3:41 pmThyroid Stimulating [id number] 03:07:04* Test Item Value Reference Range Interpretation Comme nts TSH (test code = TSH) 9.650 mIU/mL 0.270-4.200 H Lipid [id number] 03:07:03* Test Item Value Reference Range Interpretation Comme nts Cholesterol Total (test code = Cholesterol Total) 199 mg/dL 0-200 RISK OF HEART DISEASEPublished by [place] [employer] Association Analyte Optimal Borderline Increased RiskCHOL [...] is LDL/HDL Ratio=LDL Calc/HDL Chol HCG Qualitative Opfzk2928-40-03 02:33:13* Test Item Value Reference Range Interpretation Comme nts HCG, Serum Qual (test code = HCG, Serum Qual) Negative Lot # (test code = Lot #) [id number] N Expiration Dt (test code = Expiration Dt) 2020-04-23 N Neg Control (test code = Neg Control) Negative Pos Control (test code = Pos Control) Positive Internal QC (test code = Int ernal QC) Acceptable Drugs of Abuse Urine [id number] 18:58:11* Test Item Value Reference Range Interpretation [...] = Cannabinoid Screen Ur) Negative Negative Alcohol [id number] 18:47:34* Test Item Value Reference Range Interpretation Comme nts Ethanol Level (test code = Ethanol Level) <0.00 g/dL 0.00-0.01 Intoxicated 0.08 0 g/dL or more Ethanol Inst (test code = Ethanol Inst) <0 N Comprehensive Metabolic Reugv0664-49-08 18:47:33* Test Item Value Reference Range Interpretation [...] A/G Ratio) 1.0 ratio N Comprehensive Metabolic Nkyog5559-00-51 18:47:33* Test Item Value Reference Range Interpretation [...] is not provided, and the patient is -[place], multiply by 1.212. If sex is not [...] the National Kidney Foundation, http://nkdep.nih.gov Comprehensive Metabolic Afbpd2181-83-62 18:47:33* Test Item Value Reference Range Interpretation [...] is not provided, and the patient is -[place], multiply by 1.212. If sex is not [...] is not provided, and the patient is -[place], multiply by 1.212. If sex is not [...] Kidney Foundation, http://nkdep.nih.gov Complete Blood Count with Thexrdigsife4070-21-66 18:15:23* Test Item Value Reference Range Interpretation [...] code = IPF) 0 % N Automated Oznwuoanigxd8320-20-26 18:15:23* Test Item Value Reference Range Interpretation Comme nts Neutro Auto (test code = Sunny tro Auto) 42.1 % 36.0-70.0 Lymph Auto (test code = Lymph Auto) 40.0 % 12.0-44.0 [place] Auto (test code = [place] Auto) 12.2 % 0.0-11.0 H Eos, Auto (test code = Eos, Auto) 4.9 % 0.0-7.0 Basophil Auto (test code = B asophil Auto) 0.6 % 0.0-2.0 Neutro Absolute (test code = Neutro Absolute) 2.2 x10 1.6-7.4 Lymph Absolute (test code = Lymph Absolute) 2.06 x10 .50-4.60 [place] Absolute (test code = M richa Absolute) .63 x10 .00-1.20 Eos Absolute (test code = Eo s Absolute) 0.25 x10 0.00-0.74 Baso Absolute (test code = B aso Absolute) 0.03 x10 0.00-0.21 IG Zfhxg8149-80-27 18:15:23* Test Item Value Reference Range Interpretation Comme nts IG (test code = IG) 0.2 % 0.0-5.0 IG Abs (test code = IG Abs) 0 x10 N VALPROIC [id number] 00:00:00* Test Item Value Reference Range Interpretation Comme nts VALPROIC ACID (test code = 3025) 69.8 UG/ML Henry Quiles AustinVALPROIC [id number] 00:00:00* Test Item Value Reference Range Interpretation Comme nts VALPROIC ACID (test code = 3025) 69.8 UG/ML Henry Quiles AustinURINE CULTURE, NO [id number] 00:00:00* Test Item Value Reference Range Interpretation Comme nts URINE CULTURE, NO SENS (test code = 20819) SPECIMEN NUMBER: [id number] Henry Quiles AustinURINE CULTURE, NO [id number] 00:00:00* Test Item Value Reference Range Interpretation Comme nts URINE CULTURE, NO SENS (test code = 23432) SPECIMEN NUMBER: [id number] Henry Quiles AustinIRON BINDING CAPACITY AND IRON AND % [id number] 00:00:00* Test Item Value Reference Range Interpretation Comme nts IRON, SERUM (test code = 2222) 42 UG/DL UNSATURATED IBC (test code = 18751) 279 UG/DL CALC TOTAL IBC (test code = 2077) 321 UG/DL CALC % IRON SAT (test code = 2079) 13 % Henry Quiles NpycsdVSVZNDXA1877-56-89 00:00:00* Test Item Value Reference Range Interpretation Comme nts FERRITIN (test code = 2075) 15 NG/ML Henry Quiles ZwjcgiAWLQENRVZAZ8732-09-57 00:00:00* Test Item Value Reference Range Interpretation Comme nts TRANSFERRIN (test code = 4936) 269 MG/DL Henry Quiles AustinFOLIC [id number] 00:00:00* Test Item Value Reference Range Interpretation Comme nts FOLIC ACID (test code = 2695) 5.4 UG/L Henry Quiles AustinIRON BINDING CAPACITY AND IRON AND % [id number] 00:00:00* Test Item Value Reference Range Interpretation Comme nts IRON, SERUM (test code = 2222) 42 UG/DL UNSATURATED IBC (test code = 24435) 279 UG/DL CALC TOTAL IBC (test code = 2077) 321 UG/DL CALC % IRON SAT (test code = 2079) 13 % Henry ContrerasNgrkbkEYVTJPMJ8997-75-20 00:00:00* Test Item Value Reference Range Interpretation Comme nts FERRITIN (test code = 2075) 15 NG/ML Henry Quiles WnsrweALPOHAXPQLX9231-46-87 00:00:00* Test Item Value Reference Range Interpretation Comme nts TRANSFERRIN (test code = 4936) 269 MG/DL Henry Quiles AustinFOLIC [id number] 00:00:00* Test Item Value Reference Range Interpretation Comme nts FOLIC ACID (test code = 2695) 5.4 UG/L Henry ContrerasCULTURE, URINE [ADDED]2018-06-12 00:00:00* Test Item Value Reference Range Interpretation Comme nts CULTURE, URINE (test code = 60031) SPECIMEN NUMBER: [id number] Henry Quiles AustinCULTURE, URINE [ADDED]2018-06-12 00:00:00* Test Item Value Reference Range Interpretation Comme nts CULTURE, URINE (test code = 20282) SPECIMEN NUMBER: [id number] Henry ContrerasCBC W/AUTO [id number] 00:00:00* Test Item Value Reference Range Interpretation [...] = 1015) 184 K/UL Henry ContrerasCOMPREHENSIVE METABOLIC [id number] 00:00:00* Test Item Value Reference Range Interpretation Comme nts GLUCOSE (test code = 2217) 86 MG/DL BUN (test code = 2208) 16 MG/DL CREATININE (test code = 2214) 0.45 MG/DL eGFR AMER. (test cod e = 46051) 141 ML/MIN/1.73 eGFR NON- AMER. (test code = 89274) 122 ML/MIN/1.73 CALC BUN/CREAT (test code = [...] code = 2219) 17 U/L Henry ContrerasVALPROIC [id number] 00:00:00* Test Item Value Reference Range Interpretation Comme nts VALPROIC ACID (test code = 3025) 100.9 UG/ML Henry ContrerasCBC W/AUTO [id number] 00:00:00* Test Item Value Reference Range Interpretation [...] = 1015) 184 K/UL Henry ContrerasCOMPREHENSIVE METABOLIC [id number] 00:00:00* Test Item Value Reference Range Interpretation Comme nts GLUCOSE (test code = 2217) 86 MG/DL BUN (test code = 2208) 16 MG/DL CREATININE (test code = 2214) 0.45 MG/DL eGFR AMER. (test cod e = 57832) 141 ML/MIN/1.73 eGFR NON- AMER. (test code = 39064) 122 ML/MIN/1.73 CALC BUN/CREAT (test code = [...] code = 2219) 17 U/L Henry ContrerasVALPROIC [id number] 00:00:00* Test Item Value Reference Range Interpretation Comme nts VALPROIC ACID (test code = 3025) 100.9 UG/ML Henry ContrerasPAP TEST, THINPREP, [id number] 00:00:00* Test Item Value Reference Range Interpretation Comme nts SOURCE: (test code = 8001) Cervical/Endocervical SLIDES: (test code = 8011) 1 LMP: (test code = 8021) 03/2017 SPECIMEN ADEQUACY: (test code = 56921) (NOTE) INTERPRETATION: (test code = 82086) NO EPITHELIAL ABNORMALITY SEE BELOW RECYCLING DIRECTOR: (test code = 8101) KANA Merida(ASCP)IAC LOCATION: (test code = 19075) (NOTE) CPT: (test code = 8140) (NOTE) Henry ContrerasHPV HIGH RISK WITH GENOTYPE, [id number] 00:00:00* Test Item Value Reference Range Interpretation Comme nts HPV HIGH RISK INTERP (test c ode = 49090) NEGATIVE HPV 16 (test code = 05407) NEGATIVE HPV 18 (test code = 75549) NEGATIVE HPV, HR, OTHER GENOTYPES (te st code = 96761) NEGATIVE Henry ContrerasPAP TEST, THINPREP, [id number] 00:00:00* Test Item Value Reference Range Interpretation Comme nts SOURCE: (test code = 8001) Cervical/Endocervical SLIDES: (test code = 8011) 1 LMP: (test code = 8021) 03/2017 SPECIMEN ADEQUACY: (test code = 39434) (NOTE) INTERPRETATION: (test code = 32893) NO EPITHELIAL ABNORMALITY SEE BELOW RECYCLING DIRECTOR: (test code = 8101) KANA Merida(ASCP)IAC LOCATION: (test code = 30229) (NOTE) CPT: (test code = 8140) (NOTE) Henry ContrerasHPV HIGH RISK WITH GENOTYPE, [id number] 00:00:00* Test Item Value Reference Range Interpretation Comme nts HPV HIGH RISK INTERP (test c ode = 82609) NEGATIVE HPV 16 (test code = 68759) NEGATIVE HPV 18 (test code = 51605) NEGATIVE HPV, HR, OTHER GENOTYPES (te st code = 43140) NEGATIVE Henry ContrerasHIV AB/AG COMBO RFLX [id number] 00:00:00* Test Item Value Reference Range Interpretation Comme nts HIV 1/2 4TH GEN, RFLX CONF ( test code = 3514) NON-REACTIVE Henry Quiles AustinGC AND CHLAMYDIA AMPLIFIED, [id number] 00:00:00* Test Item Value Reference Range Interpretation Comme nts GONORRHEA, TMA (test code = 70570) NEGATIVE CHLAMYDIA, TMA (test code = 62101) NEGATIVE Henry Quiles AustinGC AND CHLAMYDIA AMPLIFIED, [id number] 00:00:00* Test Item Value Reference Range Interpretation Comme nts GONORRHEA, TMA (test code = 17662) NEGATIVE CHLAMYDIA, TMA (test code = 81996) NEGATIVE Henry ContrerasHIV AB/AG COMBO RFLX [id number] 00:00:00* Test Item Value Reference Range Interpretation Comme nts HIV 1/2 4TH GEN, RFLX CONF ( test code = 3514) NON-REACTIVE Henry ContrerasLIPID [id number] 00:00:00* Test Item Value Reference Range Interpretation Comme nts CHOLESTEROL (test code = 2210) 186 MG/DL TRIGLYCERIDES (test code = 2232) 131 MG/DL HDL CHOLESTEROL (test code = 2220) 67 MG/DL CALC LDL CHOL (test code = 2237) 93 MG/DL RISK RATIO LDL/HDL (test cod e = 2238) 1.39 RATIO Henry ContrerasCBC W/AUTO [id number] 00:00:00* Test Item Value Reference Range Interpretation [...] code = 1015) 152 K/UL Henry ContrerasHEMOGLOBIN [id number] 00:00:00* Test Item Value Reference Range Interpretation Comme shaina HEMOGLOBIN A1c (test code = 36830) 5.2 % Henry [id number] 00:00:00* Test Item Value Reference Range Interpretation Comme shaina TSH (test code = 2821) 2.020 UIU/ML Henry ContrerasCOMPREHENSIVE METABOLIC [id number] 00:00:00* Test Item Value Reference Range Interpretation Comme nts GLUCOSE (test code = 2217) 90 MG/DL BUN (test code = 2208) 21 MG/DL CREATININE (test code = 2214) 0.42 MG/DL eGFR AMER. (test cod e = 28448) 145 ML/MIN/1.73 eGFR NON- AMER. (test code = 85782) 126 ML/MIN/1.73 CALC BUN/CREAT (test code = [...] code = 2219) <5 U/L Henry ContrerasLIPID [id number] 00:00:00* Test Item Value Reference Range Interpretation Comme nts CHOLESTEROL (test code = 2210) 186 MG/DL TRIGLYCERIDES (test code = 2232) 131 MG/DL HDL CHOLESTEROL (test code = 2220) 67 MG/DL CALC LDL CHOL (test code = 2237) 93 MG/DL RISK RATIO LDL/HDL (test cod e = 2238) 1.39 RATIO Henry Quiles BenCBC W/AUTO [id number] 00:00:00* Test Item Value Reference Range Interpretation [...] code = 1015) 152 K/UL Henry ContrerasHEMOGLOBIN [id number] 00:00:00* Test Item Value Reference Range Interpretation Comme nts HEMOGLOBIN A1c (test code = 34475) 5.2 % Henry [id number] 00:00:00* Test Item Value Reference Range Interpretation Comme nts TSH (test code = 2821) 2.020 UIU/ML Henry ContrerasCOMPREHENSIVE METABOLIC [id number] 00:00:00* Test Item Value Reference Range Interpretation Comme nts GLUCOSE (test code = 2217) 90 MG/DL BUN (test code = 2208) 21 MG/DL CREATININE (test code = 2214) 0.42 MG/DL eGFR AMER. (test cod e = 31362) 145 ML/MIN/1.73 eGFR NON- AMER. (test code = 65313) 126 ML/MIN/1.73 CALC BUN/CREAT (test code = [...] (test code = 2219) <5 U/L Henry Etta Ben Notes Date/Time Note Provider Source PATIENT OPEN ORDERS Code System Description Frequency Occurrences Priority [place] [id number] [facility] 0 Stat November 24, 2023 12:29:00 AM [facility] MAGALIE BRAVO [id number] on November 24, 2023 12:29:00 AM [facility] SCHEDULED PROCEDURES Code System Description Status Scheduled Date Updated By Patient scheduled procedure information is not available. 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 Role on Team Status Start Date End Date Update d By NO PCP Referring normal November 24, 2023 2:17:11 AM [facility] November 25, 2023 12:04:00 AM [facility] [id number] on November 24, 2023 2:17:11 AM [facility] MAGALIE BRAVO Attending normal November 24, 2023 2:17:11 AM [facility] November 25, 2023 12:04:00 AM [facility] [id number] on November 24, 2023 2:17:11 AM [facility] MAGALIE BRAVO Admitting normal November 24, 2023 2:17:11 AM [facility] November 25, 2023 12:04:00 AM [facility] [id number] on November 24, 2023 2:17:11 AM [facility] NO PCP PCP normal November 24, 2023 2:17:11 AM [facility] November 25, 2023 12:04:00 AM [facility] [id number] on November 24, 2023 2:17:11 AM [facility]2024-06-03 00:00:00 Plan Activity Low fat, low sugar, low sodi um, low cholesterol diet and exercise 4 or 5 times a week for 30 min/day 2017-09-03 1) Referral to Neurology giv en, advised to schedule an appt 2) Depakote level 3) Go to ER if seizures continue 2018-06-10 Obesity Full panel labs performed, pending results Dental referral made Educated pt. to go [facility] for general eye exam 2017-09-24 UA- small leukocytes, trace proteins and ketones sulfamethoxazole-trimethoprim 800-160mg 1 tablet by mouth BID for 7 days Appended: 2018-06-10 Urine culture Bactrim DS by mouth twice a day for seven days Over the counter Urinary Pain relief (phenazopyridine Hydrochloride) take according to tower supervisor's directions for bladder spasms. Drink plenty of water and stay well hydrated. Practice good perineal hygiene by wiping vagina from front to back. Wash perineal area daily with mild soap and water. Monitor for fever Discussed purpose and side effects of medication Follow up in 14 days if symptoms do not improve. Appended: 2018-08-23 Urine dipstick Urine culture Clinical treatment will be based on labs Over the counter Urinary Pain relief (phenazopyridine Hydrochloride) take according to tower supervisor's directions for bladder spasms. Drink plenty of water and stay well hydrated. Practice good perineal hygiene by wiping vagina from front to back. Wash perineal area daily with mild soap and water. Monitor for fever Discussed purpose and side effects of medication Follow up in 7 days if symptoms do not improve. 2017-09-24 Influenza vaccine given 2017-09-24 continue risperdone 1mg FU with Psych provider September 25 if any medication adjustments are indicted 2017-09-24 EKG- SR with possible LVH 68 2017-09-24 screening mammogram PAP due in 2024 Healthy diet with daily activity advised. Increase calcium, fluids, fiber diet. F/u in one year. Appended: 2019-08-03 pap today pending result RTC on annual exam SBE If 40 or greater, schedule 1-2 year MMG as indicated If 50 or greater, schedule colonoscopy or give Heme card. Recommend Ca 2+ and Vitamin D if menopausal DEXA at 65 and greater Immunizations as age indicated Annual well adult with PCP as indicated STI labs as indicated Screening labs as indicated Await diagnostic results 2017-09-26 Bilateral breast mammogram RTC 1 month for results 2021-06-13 Anusol rectal suppository se nt. Colace caps daily Increase fiber, fluid in diet. 2017-09-26 Test Code: 2222 Description: IRON, SERUM Test Code: 2118 Description: IRON BINDING CAPACITY AND IRON AND % SATURATION Test Code: 2090 Description: FERRITIN Test Code: 4936 Description: TRANSFERRIN Test Code: 2695 Description: FOLIC ACID Clinical treatment will be based on labs. 2018-06-10 Go to [facility] for STD screening Discussed safe sex practices. 2018-07-08 continue ropinorole 2mg continue risperdone 1mg and FU with Psych and Neuro as indicated ER precautions provided 2018-08-23 dimenhydrinate 25mg 1 tablet by mouth NIGHTLY Sleep only as much as you need to feel rested and then get out of bed Keep a regular sleep schedule Avoid forcing sleep Exercise regularly for at least 20 minutes, preferably 4 to 5 hours before bedtime Avoid caffeinated beverages after lunch Avoid alcohol near bedtime: no "night cap" Avoid smoking, especially in the evening Do not go to bed hungry Adjust bedroom environment Avoid prolonged use of light-emitting screens before bedtime Deal with your worries before bedtime Follow up with clinic in one month Report trouble sleeping to [facility] 2019-03-24 Limit fat intake to no more than 20% to 35% of your total calorie intake. For a person following a 1,800-calorie diet, this means eating no more than 40 to 70 grams of fat each day. Choose complex carbohydrates, such as whole grains, vegetables, and fruits. About 45% to 65% of your total calorie intake should come from carbohydrate. For someone following a 1,800-calorie diet, this means eating about 200 to 300 grams of carbohydrate each day. Choose low-fat protein sources, such as fish, poultry, and legumes (for example, turner beans, lentils, and split peas). About 10% to 35% of your total calorie intake should come from protein. For someone following a 1,800-calorie diet, this means eating about 45 to 160 grams of protein each day. Get enough fiber each day. Men should aim for 38 grams a day, and women should aim for 25 grams a day. Have no more than 1 alcohol drink a day for women and 2 alcohol drinks a day for men. 2019-04-07 Recommend healthy eating wit h foods from a variety of food groups, appropriate portion sizes, and few sugary snacks/drinks. 2021-06-13 Exercise 30 minutes daily Discussed benefits of daily exercise 2021-06-13 Get ER medical records Follow ER orders Appended: 2019-07-13 Get ER medical records and put on chart Appended: 2019-07-14 [facility] medical records to chart - records on chart 2019-06-01 Go to ER for MRI of shoulder Police reports indicates patient is a fault and she does not have any insurance Patient needs to follow up with [facility] manager maritime Appended: 2019-08-02 Dressing change done in clinic. Patient to see Dr. Junior for wound care 2019-07-13 advised ibuprofen 2 tabs PRN for h/a onset increase water intake avoid sugary drinks and limit caffeine intake stress relief and relaxation techniques advised neuro referral given d/t hx of frequent migraines ER precautions discussed MR signed 2019-07-25 [facility] patient 2019-08-02 Limit fat intake to no more than 20% to 35% of your total calorie intake. For a person following a 1,800-calorie diet, this means eating no more than 40 to 70 grams of fat each day. Choose complex carbohydrates, such as whole grains, vegetables, and fruits. About 45% to 65% of your total calorie intake should come from carbohydrate. For someone following a 1,800-calorie diet, this means eating about 200 to 300 grams of carbohydrate each day. Choose low-fat protein sources, such as fish, poultry, and legumes (for example, turner beans, lentils, and split peas). About 10% to 35% of your total calorie intake should come from protein. For someone following a 1,800-calorie diet, this means eating about 45 to 160 grams of protein each day. Get enough fiber each day. Men should aim for 38 grams a day, and women should aim for 25 grams a day. Have no more than 1 alcohol drink a day for women and 2 alcohol drinks a day for men. 2019-08-02 MMG referral 2019-08-03 symptoms have resolved, devi ent has been >10 since onset of sx and afebrile for >24h ok to discontinue quarantine encourage social distancing, masks, good hand hygiene 2020-06-20 Ordered Covid-19 testing Continue self-quarantine await result monitor for symptoms continue to follow local guidelines and recommendations with regarding to social distancing and facial covering. ER precaution for respiratory distress 2020-08-17 sister wanting immediate res ults if fx- advised to go to [facility] ER- as they also have ortho can take Ibuprophen heating pad PRN will try to get records [facility] 2021-05-04 Encourage weight loss through healthy di et and exercise. 2021-06-13 Hydroxyzine 25 mg TID PRN x 7 days 06-13 Low fat, low sugar, low sodi um, low cholesterol diet and exercise 4 or 5 times a week for 30 min/day 2022-07-17 XR cervivcal spine, will request records 2023-01-09 celebrex prn 2023-01-09 Meclizine continue as needed ENT and Neuro referral placed ER precautions given 2023-03-02 Labs: CBC Educated pt to continue taking iron daily with Vitamin C. Medication refilled Pt can in crease fluids and take OTC colace if constipation presents RTO if pt experiences heavy vaginal bleeding, dizziness, light headed or a fast heart rate 2023-05-17 STABLE 2023-05-17 REFERRAL FOR BH/PSYCH WITH CHN 2023-04-25 4 TSH continue Levothyroxine 50 mcg . May adjust meds pending labs Take medication on an empty stomach in the morning. Avoid calcium/iron/milk, soy, fiber and coffee with tablet. Wait 60 minutes before eating breakfast Soy, fiber and coffee may decrease absorption of Levothyroxine FU in 4-6 to repeat labs or sooner if symptomatic 2023-05-24 Hematology referral 2023-05-24 see plans above 2023-05-24 Pt will verify if taking bus par . Medication side effects per pharmacy and verbal prescription given Educated pt to FU with psych ER precautions given 2023-07-04 RTC on annual exam Immunizations as age indicated Annual well adult with PCP as indicated STI labs as indicated Await diagnostic results 2023-10-04 PAP with HPV results pending 2023-10-04 Rapid HIV negative 2023-10-04 Encouraged weight loss through healthy d iet and exercise. 2023-10-04 Patient reports family no hx of colon cancer: Patient educated and given FIT Patient educated on colon cancer screening options risk and benefits . Continue with healthy fiber, vegetables, fruits, and water 2023-10-04 Pap with HPV results pending 2023-10-25 Henry Contreras [facility]2024-06-02 19:05:13 DISCHARGE MEDICATIONS Status RXNORM Medication Dose Route Frequency Dates Comments PATIENT OPEN ORDERS Code System Description Frequency Occurrences Priority Start [place] [id number] [facility] study ONE TIME 0 Stat November 24, 2023 12:29:00 AM [facility] MAGALIE [id number] on November 24, 2023 12:29:00 AM [facility] SCHEDULED PROCEDURES Code System Description Status Scheduled Date Updated By Patient scheduled procedure information is not available. [facility]2024-06-02 19:05:13 CARE senior php developer Role on Team Status Start Date End Date Update d By NO PCP Referring normal November 24, 2023 2:17:11 AM [facility] November 25, 2023 12:04:00 AM [facility] [id number] on November 24, 2023 2:17:11 AM [facility] MAGALIE BRAVO Attending normal November 24, 2023 2:17:11 AM [facility] November 25, 2023 12:04:00 AM [facility] [id number] on November 24, 2023 2:17:11 AM [facility] MAGALIE BRAVO Admitting normal November 24, 2023 2:17:11 AM [facility] November 25, 2023 12:04:00 AM [facility] [id number] on November 24, 2023 2:17:11 AM [facility] NO PCP PCP normal November 24, 2023 2:17:11 AM [facility] November 25, 2023 12:04:00 AM [facility] [id number] on November 24, 2023 2:17:11 AM [facility]2024-06-01 21:59:[address] [address] DIAGNOSTIC IMAGING REPORT Patient Name: ROBERT, CONCEPTION Date of Service: 11-23-2023 Age: 48 Sex: F Order #: [id number] Room: [facility] : 1975 X-Ray Number: [id number] Hospital Number: [id number] Admitting Physician: LAWRENCE MEJIAS Ordering Physician: LAWRENCE MEJIAS PROCEDURE: CT HEAD W/O CONT INDICATIONS: dx: psych evalorder sts: r/o rt nephrolithiasispt here for psych evalpsv: mbb Exam: CT Brain without contrast Comparison: None Clinical history: Psych eval. Findings: No acute intracranial hemorrhage. Cerebral volume loss. No abnormal extra-axial fluid collections. No intracranial mass No midline shift. No skull fracture. Impression: 1. No acute intracranial hemorrhage. 2. Cerebral volume loss. This document has been electronically signed by: Mala Adams MD on 11/23/2023 21:59:03 Legally authenticated by ANGIE PHAM 2023-11-23 21:59:03MALA ADAMS [id number] 21:53:[address] [place] [address] DIAGNOSTIC IMAGING REPORT Patient Name: JONATHAN JONES Date of Service: 11-23-2023 Age: 48 Sex: F Order #: [id number] Room: [facility] : 1975 X-Ray Number: [id number] Hospital Number: [id number] Admitting Physician: LAWRENCE MEJIAS Ordering Physician: LAWRENCE MEJIAS PROCEDURE: CT ABDOMEN/PELVIS WITHOUT INDICATIONS: dx: psych evalorder sts: r/o rt nephrolithiasispt here for psych evalpsv: mbb CT abdomen and pelvis without contrast Comparison: None Findings: There are ground-glass infiltrates in the left lingular lobe with discoid atelectasis. The upper abdomen reveals normal liver, spleen, adrenal glands, pancreas and major vessels. No retroperitoneal or other lymphadenopathy seen. There are no radiopaque renal calculi. There are radiopaque calculi noted in the dependent part of the gallbladder. No evidence for acute cholecystitis. The lower abdomen including ileocecal region were normal. Post ileal appendix was unremarkable. In the pelvis, there are no acute findings. No acute bony findings are present. There are degenerative changes in thoracolumbar spine. IMPRESSION: No acute findings in the abdomen or pelvis. Cholecystolithiasis, without evidence for acute cholecystitis. A normal upper abdominal CT otherwise. No nephrolithiasis Normal lower abdomen including appendix. Unremarkable pelvis. This document has been electronically signed by: Mikel Del Rio MD on 11/23/2023 21:53:03 Legally authenticated by YUNIOR MCKEON 2023-11-23 21:53:03ALON DEL RIO 2023-10-25 00:00:00 Plan Activity Low fat, low sugar, low sodi um, low cholesterol diet and exercise 4 or 5 times a week for 30 min/day 2017-09-03 1) Referral to Neurology giv en, advised to schedule an appt 2) Depakote level 3) Go to ER if seizures continue 2018-06-10 Obesity Full panel labs performed, pending results Dental referral made Educated pt. to go to [facility] for general eye exam 2017-09-24 UA- small leukocytes, trace proteins and ketones sulfamethoxazole-trimethoprim 800-160mg 1 tablet by mouth BID for 7 days Appended: 2018-06-10 Urine culture Bactrim DS by mouth twice a day for seven days Over the counter Urinary Pain relief (phenazopyridine Hydrochloride) take according to tower supervisor's directions for bladder spasms. Drink plenty of water and stay well hydrated. Practice good perineal hygiene by wiping vagina from front to back. Wash perineal area daily with mild soap and water. Monitor for fever Discussed purpose and side effects of medication Follow up in 14 days if symptoms do not improve. Appended: 2018-08-23 Urine dipstick Urine culture Clinical treatment will be based on labs Over the counter Urinary Pain relief (phenazopyridine Hydrochloride) take according to tower supervisor's directions for bladder spasms. Drink plenty of water and stay well hydrated. Practice good perineal hygiene by wiping vagina from front to back. Wash perineal area daily with mild soap and water. Monitor for fever Discussed purpose and side effects of medication Follow up in 7 days if symptoms do not improve. 2017-09-24 Influenza vaccine given 2017-09-24 continue risperdone 1mg FU with Psych provider September 25 if any medication adjustments are indicted 2017-09-24 EKG- SR with possible LVH 68 2017-09-24 screening mammogram PAP due in 2024 Healthy diet with daily activity advised. Increase calcium, fluids, fiber diet. F/u in one year. Appended: 2019-08-03 pap today pending result RTC on annual exam SBE If 40 or greater, schedule 1-2 year MMG as indicated If 50 or greater, schedule colonoscopy or give Heme card. Recommend Ca 2+ and Vitamin D if menopausal DEXA at 65 and greater Immunizations as age indicated Annual well adult with PCP as indicated STI labs as indicated Screening labs as indicated Await diagnostic results 2017-09-26 Bilateral breast mammogram RTC 1 month for results 2021-06-13 Anusol rectal suppository se nt. Colace caps daily Increase fiber, fluid in diet. 2017-09-26 Test Code: 2222 Description: IRON, SERUM Test Code: 2118 Description: IRON BINDING CAPACITY AND IRON AND % SATURATION Test Code: 2090 Description: FERRITIN Test Code: 4936 Description: TRANSFERRIN Test Code: 2695 Description: FOLIC ACID Clinical treatment will be based on labs. 2018-06-10 Go to [facility] for STD screening Discussed safe sex practices. 2018-07-08 continue ropinorole 2mg continue risperdone 1mg and FU with Psych and Neuro as indicated ER precautions provided 2018-08-23 dimenhydrinate 25mg 1 tablet by mouth NIGHTLY Sleep only as much as you need to feel rested and then get out of bed Keep a regular sleep schedule Avoid forcing sleep Exercise regularly for at least 20 minutes, preferably 4 to 5 hours before bedtime Avoid caffeinated beverages after lunch Avoid alcohol near bedtime: no "night cap" Avoid smoking, especially in the evening Do not go to bed hungry Adjust bedroom environment Avoid prolonged use of light-emitting screens before bedtime Deal with your worries before bedtime Follow up with clinic in one month Report trouble sleeping to [facility] 2019-03-24 Limit fat intake to no more than 20% to 35% of your total calorie intake. For a person following a 1,800-calorie diet, this means eating no more than 40 to 70 grams of fat each day. Choose complex carbohydrates, such as whole grains, vegetables, and fruits. About 45% to 65% of your total calorie intake should come from carbohydrate. For someone following a 1,800-calorie diet, this means eating about 200 to 300 grams of carbohydrate each day. Choose low-fat protein sources, such as fish, poultry, and legumes (for example, turner beans, lentils, and split peas). About 10% to 35% of your total calorie intake should come from protein. For someone following a 1,800-calorie diet, this means eating about 45 to 160 grams of protein each day. Get enough fiber each day. Men should aim for 38 grams a day, and women should aim for 25 grams a day. Have no more than 1 alcohol drink a day for women and 2 alcohol drinks a day for men. 2019-04-07 Recommend healthy eating wit h foods from a variety of food groups, appropriate portion sizes, and few sugary snacks/drinks. 2021-06-13 Exercise 30 minutes daily Discussed benefits of daily exercise 2021-06-13 Get ER medical records Follow ER orders Appended: 2019-07-13 Get ER medical records and put on chart Appended: 2019-07-14 [facility] medical records to chart - records on chart 2019-06-01 Go to ER for MRI of shoulder Police reports indicates patient is a fault and she does not have any insurance Patient needs to follow up with [facility] manager maritime Appended: 2019-08-02 Dressing change done in clinic. Patient to see Dr. Junior for wound care 2019-07-13 advised ibuprofen 2 tabs PRN for h/a onset increase water intake avoid sugary drinks and limit caffeine intake stress relief and relaxation techniques advised neuro referral given d/t hx of frequent migraines ER precautions discussed MR signed 2019-07-25 [facility] patient 2019-08-02 Limit fat intake to no more than 20% to 35% of your total calorie intake. For a person following a 1,800-calorie diet, this means eating no more than 40 to 70 grams of fat each day. Choose complex carbohydrates, such as whole grains, vegetables, and fruits. About 45% to 65% of your total calorie intake should come from carbohydrate. For someone following a 1,800-calorie diet, this means eating about 200 to 300 grams of carbohydrate each day. Choose low-fat protein sources, such as fish, poultry, and legumes (for example, turner beans, lentils, and split peas). About 10% to 35% of your total calorie intake should come from protein. For someone following a 1,800-calorie diet, this means eating about 45 to 160 grams of protein each day. Get enough fiber each day. Men should aim for 38 grams a day, and women should aim for 25 grams a day. Have no more than 1 alcohol drink a day for women and 2 alcohol drinks a day for men. 2019-08-02 MMG referral 2019-08-03 symptoms have resolved, devi ent has been >10 since onset of sx and afebrile for >24h ok to discontinue quarantine encourage social distancing, masks, good hand hygiene 2020-06-20 Ordered Covid-19 testing Continue self-quarantine await result monitor for symptoms continue to follow local guidelines and recommendations with regarding to social distancing and facial covering. ER precaution for respiratory distress 2020-08-17 sister wanting immediate res ults if fx- advised to go to [facility] ER- as they also have ortho can take Ibuprophen heating pad PRN will try to get [facility] 2021-05-04 Encourage weight loss through healthy di et and exercise. 2021-06-13 Hydroxyzine 25 mg TID PRN x 7 days 06-13 Low fat, low sugar, low sodi um, low cholesterol diet and exercise 4 or 5 times a week for 30 min/day 2022-07-17 XR cervivcal spine, will request records 2023-01-09 celebrex prn 2023-01-09 Meclizine continue as needed ENT and Neuro referral placed ER precautions given 2023-03-02 Labs: CBC Educated pt to continue taking iron daily with Vitamin C. Medication refilled Pt can in crease fluids and take OTC colace if constipation presents RTO if pt experiences heavy vaginal bleeding, dizziness, light headed or a fast heart rate 2023-05-17 STABLE 2023-05-17 REFERRAL FOR BH/PSYCH WITH CHN 2023-04-25 4 TSH continue Levothyroxine 50 mcg . May adjust meds pending labs Take medication on an empty stomach in the morning. Avoid calcium/iron/milk, soy, fiber and coffee with tablet. Wait 60 minutes before eating breakfast Soy, fiber and coffee may decrease absorption of Levothyroxine FU in 4-6 to repeat labs or sooner if symptomatic 2023-05-24 Hematology referral 2023-05-24 see plans above 2023-05-24 refilled buspar . Medication side effects per pharmacy and verbal prescription given Educated pt to FU with psych ER precautions given 2023-07-04 RTC on annual exam Immunizations as age indicated Annual well adult with PCP as indicated STI labs as indicated Await diagnostic results 2023-10-04 PAP with HPV results pending 2023-10-04 Rapid HIV negative 2023-10-04 Encouraged weight loss through healthy d iet and exercise. 2023-10-04 Patient reports family no hx of colon cancer: Patient educated and given FIT Patient educated on colon cancer screening options risk and benefits . Continue with healthy fiber, vegetables, fruits, and water 2023-10-04 Pap with HPV results pending 2023-10-25 Henry Contreras [facility]2024-04-10 09:45:21 We are unable to release any pt information with out prior pt permission. However, Risperdal is not generally managed by neurology and would be best managed by psychiatrist. Robyn Durham [facility] - [id number] 16:15:28 Copied from [facility] #[id number]. Topic: Clinical - Order >> Oct 01, 2023 4:13 PM Patient Review Manager wrote: [facility] is calling regarding medication risperdal they were givng her 3mg and stating dr had dropped it to 1mg trying to confirm change Call [phone] [facility] Villeda [facility] [id number] 12:29:00 [facility] ([facility] Hospitalist Discharge Summary REPORT#:[id number] REPORT STATUS: Signed DATE:10/11/22 TIME: 1229 PATIENT: BHUMIKA JONES UNIT #: [id number] ROOM/BED: [place] [address] : 74 AGE: 47 SEX: F ATTEND: Marly Mendenhall MD ADM AUTHOR: Marly Mendenhall MD * ALL edits or amendments must be made on the electronic/computer document * General Information Discharge date: 09/19/22 Discharge diagnosis: Metabolic encephalopathy Hyponatremia History of seizure disorder Hospital course: This is a 47-year-old female with past medical history of schizophrenia seizure disorder she was brought into the ER because of altered mental status she had decreased responsiveness from her the patient this morning with the help of word processing supervisor and she said that he lives with [...] resolved History of schizophrenia on Depakote and carbamazepine Recent onset of seizure-like activity with event occurred during EEG appear nonepileptic Reviewed by neurology DC in stable condition Free Text DxA P Notes Free text DxA P notes: Hyponatremia asymptomatic Recheck Do a work-up Continue Ringer lactate 50 cc/h monitor electrolytes Metabolic encephalopathy questionable patient seems to be at baseline. With history of schizophrenia Neuro consult Treat underlying condition Schizophrenia Continue home medication once confirmed Seizure disorder Continue home medication Seizure precaution DVT prophylaxis Lovenox Advanced directive discussed Medication reviewed and reconciled Further pending hospital course currently on one-to-one sitter [...] refill, normal range of motion, no edema Neuro/DRYWALL SPRAYER: altered mental status, alert Discharge Instructions PCP Discharge to: Home/Self Care Additional Discharge Routines: PCP Follow-Up Diet: Resume Home Diet/Feeds Activity: As Tolerated Follow-up Appointments PCP follow-up: PCP: No Primary or Family Physician PCP follow up timeframe: In 6 days at 1230 RPT #:[id number] END OF [id number] 17:27:00 [facility] ([facility]) Electroencephalogram-EEG REPORT#:[id number] REPORT STATUS: Signed DATE:09/18/22 TIME: 1727 PATIENT: BHUMIKA JONES UNIT #: [id number] ROOM/BED: [place] [address] : 74 AGE: 47 SEX: F ATTEND: Marly Mendenhall MD ADM AUTHOR: Nelia Parker MD * ALL edits or amendments must be made on the electronic/computer document * Procedure HPI Requesting clinician: self Medications: Home Medications: Medication Dose/Rte/Freq Days Qty Entered Last Max Daily Dose Reviewed DIVALPROEX ER 1,000 MG PO DAILY 09/14/22 (DEPAKOTE ER) 1500 Strength: 500 MG TAB.ER.24H risperiDONE (RisperDAL) 3 MG PO DAILY 09/14/22 Strength: 3 MG TAB 1500 carBAMazepine (TEGretol) 400 MG PO Q12H 120 09/13/22 Strength: 200 MG TAB 1326 Current Hospital [...] 10/17 1930 Carbamazepine 400 MG Q12H 09/17 193 CAN (TEGretol) PO 10/17 1930 Lorazepam 1 [...] Docusate Sodium 100 MG BID PRN PRN 03/27 1930 AC (COLACE 100 MG CAP) PO 10/17 1930 HPI: See neuro note for further info. Patient is poor historian overall with history of schizophrenia. Per the patient she started having [...] See neuro consult note for further info Procedure Date of procedure: 09/18/22 Procedure performed: routine EEG Indication: possible seizure prior to admission and reported confusion Procedure description: Study start time 14:31:21 Study duration 30 minutes Findings: 18 channel EEG obtained and the patient was awake during the recording. I was present during the photic stimulation. Hyperventilation was omitted. Video EEG is not available [...] open eyes (commands were obtained using a registered nurse hh case manager) with opening the eyes the patient would [...] she is outside the hospital she said yes. During this event there was no epileptiform discharges and normal brainwave pattern seen. No postevent slowing detected. The EKG leads did not show any significant arrhythmia. During the event heart rate maintained as prior within the higher 50s/low 60s. Impression/Conclusion: Technically limited study overall as above, however no epileptiform discharges detected during the recording. An event reported above with patient unresponsive with minor tremulous like movement with patient stating that she did not know what happened and she felt she passed out suggestive of nonepileptic seizure-like activity. See neuro note for further info. Currently waiting for further information from family regarding events. Unfortunately limited history is no provided information on what is the event semiology as outpatient except with the patient mentioned. at 1736 RPT #:[id number] END OF [id number] 14:24:00 [facility] ([facility] Neurology Consultation Note REPORT#:[id number] REPORT STATUS: Signed DATE:09/18/22 TIME: 1424 PATIENT: BHUMIKA JONES UNIT #: [id number] ROOM/BED: [place] [address] : 74 AGE: 47 SEX: F ATTEND: Marly Mendenhall MD ADM AUTHOR: Nelia Parker MD * ALL edits or amendments must be made on the electronic/computer document * See Addendum History of Present Illness HPI Requesting clinician: see consult order Reason for consult: "AMS" Chief complaint: wanting to go home for her family HPI: 47-year-old female Burundian speaking only who was brought into the [...] and the patient was sent to a [facility]. Reportedly per the patient she did not like the usp and does not like the food there [...] seizures prior to her being in the usp. Per the patient she get upset that [...] stated she was upset that they wanted to go to [...] which could be associated with ingestion of carbamazepine but unclear if overdosed intentionally on her meds or not. Patient stated mainly that she wants to go home and she wants to eat peanuts and was asking constantly to eat peanuts with flat affect. She stated talking about this making her head hurts. She stated no other symptoms and she just wants to go home Per the patient she stated she does not smoke drink or use drugs. No family available to confirm the history and the usp location is unknown to contact someone who [...] 94.0 09/18 112 O2 Delivery Room air 03/28 1127 Temp 98.2 09/18 1127 Pulse 64 [...] wants to eat peanuts and eat good food Visual field full bilateral without neglect. No gaze preference. No aphasia or dysarthria. PERRL, EOMI, no facial droop. Tongue midline. No head tenderness to palpation Moving all limbs purposefully 5/5 without drift. Tone within normal. Some positional tremor seen resolved with distraction. Sensation intact to light touch, temperature and pinprick bilateral without neglect No nystagmus. No dysmetria all limbs. No tachypnea, with irregular heartbeat. Abdomen soft and nontender. No musculoskeletal discomfort to limb movement passive or active No rash seen on skin [...] MG 09/18 09/18 09/17 09/17 0553 0553 [id number] 1513 Chemistry Hemoglobin A1c (4.5 - 5.6 % [...] Index/DL) 1 NORMAL <10 MG 09/17 09/17 1518 1513 Chemistry Sodium (133 - 144 mmol/L) 125.0 [...] - 8.0 pH UNITS) 6.5 Ur Specific [place] (1.001 - 1.035 SG) 1.013 Urine Protein [...] Leonardo - Nati Hunt M.D. Diagnosis, Assessment Plan Time spent: Time spent on patient care (minutes): 110 >50% spent on counseling/coordination of care: yes Free Text DxA P Notes Free text DxA P notes: Reported encephalopathy could be due to hyponatremia in the setting of restart Tegretol resolved History of schizophrenia on Depakote and carbamazepine Recent onset of seizure-like activity with event [...] detected an episode would be considered nonepileptic/psychogenic. No clear report [...] her psych meds. Please call with questions or updates regarding patient. unless relevant update to patient hx, no w/up from my end currently is needed. at 1507 Addendum 1: 09/18/22 1651 by Nelia Parker MD waiting on family member to confirm or give other parts of the history that might be helpful for her condition and whether had prior seizures in the past or not. at 1657 RPT #:[id number] END OF [id number] 11:44:00 [facility] ([facility]) Hospitalist Progress Note REPORT#:[id number] REPORT STATUS: Signed DATE:09/18/22 TIME: 1144 PATIENT: BHUMIKA JONES UNIT #: [id number] ROOM/BED: [facility] : 74 AGE: 47 SEX: F ATTEND: Marly Mendenhall MD ADM AUTHOR: Marly Mendenhall MD * ALL edits or amendments must be made on the electronic/computer document * Subjective Chief complaint: Altered mental status HPI: This is a 47-year-old female with past medical history of schizophrenia seizure disorder she was brought into the ER because of altered mental status she had decreased responsiveness from her the patient this morning with the help of word processing supervisor and she said that he lives with [...] refill, normal range of motion, no edema Neuro/DRYWALL SPRAYER: altered mental status, alert Diagnosis, Assessment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 Accepts Yes )( Accepted Time 043 )( Accepted Date 09/14/22 Call Information will see patient, agrees with eval, agrees with plan Discharge/Care Plan Counseled Regarding Diagnosis, Lab results, Imaging studies Admit Note I have spoken with the patient and/or caregivers. I have explained the patient's condition, diagnoses and treatment plan based on the [...] capability of the emergency department. The patient will be transported for further care and management or will be moved to an observation or inpatient service. I have communicated with the staff or medical practitioner taking over this patient's care. Asim Jack 09/14/22 0537: Re-Evaluation MDM Free Text [facility] Notes Additional Text I saw and examined the patient with abdomen agree with his assessment and plan. This is the patient's second visit here at [facility] in the past 24 hours. She continues to complain of seizure activity, however none have been witnessed here [...] the plan of care. at 0449 at 0540 RPT #:[id number] END OF [id number] 20:34:00 [facility] ([facility]) EMERGENCY PROVIDER REPORT REPORT#:[id number] REPORT STATUS: Signed DATE:09/13/22 TIME: 2033 PATIENT: BHUMIKA JONES UNIT #: [id number] ROOM/BED: B.250-W AGE: 47 SEX: F PCP PHYS: No Primary or Family Physician SERVICE AUTHOR: Stephanie Bosch * ALL edits or amendments must be made on the electronic/computer document * Provider in Triage - Adult Provider in Triage Initial Greet Date/Time 09/13/222017 Greet Note I have greeted and performed a focused rapid initial assessment of this patient. A comprehensive ED assessment and evaluation of the patient, analysis of all test results, and completion of the medical decision-making process will be conducted by additional ED providers. HPI Chief Complaint need help with money for medications PE General/Const crying Respiratory/Chest No respiratory distress Progress language line used. Denies SI or HI MSE Not Complete The medical screening exam is not complete. Further evaluation and/or treatment is required. The patient will be re-directed to the emergency department. PMH-Provider in Triage Stated Complaint LEG PAIN Allergies Coded Allergies: No Known Allergies (09/13/22) Home Medications Active Scripts carBAMazepine (TEGretol) 400 MG PO Q12H carBAMazepine (TEGretol) 400 MG PO Q12H #120 TABS Prov: 09/13/22 Reported Medications DIVALPROEX ER (DEPAKOTE ER) 1,000 MG PO DAILY risperiDONE (RisperDAL) 3 MG PO DAILY at 1707 RPT #:[id number] END OF [id number] 09:58:00 [facility] ([facility]) EMERGENCY PROVIDER REPORT REPORT#:[id number] REPORT STATUS: Signed DATE:09/13/22 TIME: 09 PATIENT: BHUMIKA JONES UNIT #: [id number] ROOM/BED: AGE: 47 SEX: F PCP PHYS: No Primary or Family Physician SERVICE AUTHOR: Brad Woodall DO * ALL [...] older: Unknown,if ever smoked Physical Exam Vital Signs [...] No nystagmus Ears/Nose/Throat Ears/Nose/Throat Airway patent, Mucous membranes moist, Pharynx NL Resp/Chest Respiratory/Chest Breath sounds NL, Breath sounds = bilat, No respiratory distress Cardiovascular Cardiovascular Heart rate NL, Regular rhythm, Heart sounds NL Abdomen/GI Abdomen/GI Soft, Non-tender, McBurney's non-tender Skin Skin Warm, Dry, Intact Genitourinary General Exam deferred Neurologic Neurologic Oriented X3, Speech NL, No motor deficits Psychiatric Psychiatric Affect NL, Mood NL, Cognitive function NL Interpretation Diagnostics Lab Results Interpretation Results Laboratory Tests 09/13/22 1142: [Embedded Image Not Available] Laboratory Tests: 09/13 1210 Urines Urine Color (YELLOW DESCRIPT) LIGHT-YELLOW Urine Appearance (CLEAR DESCRIPT) TURBID (1+)HAZY-CLDY H Urine pH (4.6 - 8.0 pH UNITS) 6.0 Ur Specific [place] (1.001 - 1.035 SG) 1.024 Urine Protein [...] % (Auto) (14.1 - 45.4 %) 34.0 [place] % (Auto) (2.5 - 11.7 %) 10.1 Eos % (Auto) (0.0 - 6.2 %) 2.7 Baso % (Auto) (0.0 - 2.1 %) 0.7 Gran # (2.0 - 13.7 k/mm3) 3.04 Lymph # (Auto) (0.6 - 3.8 K/mm3) 1.98 [place] # (Auto) (0.11 - 0.59 K/mm3) 0.59 [...] Number and complexity of problems Differential diagnosis: Arrhythmia, medication noncompliance, seizure, infection , electrolyte abnormality MDM data: EKG with no acute finding. No signs of infection on lab work. Labs with very mild hyponatremia. Patient with no further seizure-like activity. Rx given for seizure medication for home. Patient will follow-up closely with her PCP/neurology. Ambulatory and tolerating p.o. Stable for discharge home at this time. Patient updated and agreeable plan of care External documents reviewed: EMS run sheet My EKG interpretation: No acute finding, normal sinus rhythm My CT interpretation: None My x-ray interpretation: No acute Labs reviewed by me and are significant for: Hyponatremia Decision rules/scores evaluated: None Discussed with: EMS, [...] Ox 97 09/13 0836 B/P 136/80 09/13 0936 B/P Mean 98 09/13 0836 O2 Delivery Room air 09/14 935 Temp 97.9 09/14 935 Pulse 88 09/14 935 Resp 14 09/14 935 All vital signs available at the time of this entry have been reviewed. Clinical Impression Clinical Impression Primary Impression: Seizure-like activity Secondary Impressions: Nonadherence to medication Disposition Decision Discharge )( Discharged to Home Yes )( Time 1255 )( Date 09/13/22 Discharge/Care Plan Counseled Regarding Diagnosis, Lab results, Prescriptions, Need for [...] #120 TABS Patient Instructions ED Seizure, Recurrent (Adult) Additional Instructions Please follow-up with PCP first available appointment Discharge Note I have spoken with the patient and/or caregivers. I have explained the patient's condition, diagnoses and treatment plan based on the [...] of care and follow-up instructions have been explained in detail. The patient and/or caregivers have received these instructions in written format and have expressed an understanding of the discharge instructions. The patient and/or caregivers are aware that any significant change in condition or worsening of symptoms should prompt an immediate return to this or the closest emergency department or a call to 911. at 1327 RPT #:[id number] END OF REPORTABBEVILLE AREA MEDICAL CENTERCR
[2024-01-21 22:32] LABS: Absolute Eosinophils 0.2 K/uL (0-0.5); Absolute Lymphocytes (CBC) 2.1 K/uL (0.7-4.9); Absolute Monocytes 0.8 K/uL (0.1-1.3); Absolute Neutrophil 2.9 K/uL (1.8-8.0); Basophils % 0.8 % (0-1.3); Eosinophils % 3.1 % (0-4.4); Hematocrit 30.1 % (36.0-45.0); Hemoglobin 9.9 g/dL (12.0-15.0); Lymphocytes % 34.9 % (15.3-44.8); MCH 29.9 pg (27.0-35.0); MCHC 32.9 g/dL (32.0-36.0); MCV 90.8 fL (80-100); MPV 7.5 fL (7.6-11.3); Monocytes % 12.6 % (3.3-12.3); Neutrophils % 48.6 % (41.7-73.7); Platelets 186 thou/uL (152-406); RBC Red Blood Cell Count 3.31 M/uL (3.86-4.86); Red Cell Distribution Width 15.6 % (12.1-15.2)
[2024-01-21 22:44] LABS: Anion Gap 6.4 mEq/L (5.0-15.0); Potassium 3.4 mEq/L (3.5-5.1)
--- NOTE | 2024-01-22 00:04 | ER ---
Nurse's Notes [facility] Name: Davida Hodges Age: 48 yrs Sex: Female : 1975 Arrival Date: 01/21/2024 Time: 21:49 Bed 14 Private MD: Diagnosis: Chest pain, unspecified Presentation: 01/20 22:08 Chief complaint: Patient states: Chest pain to the left side of her chest onset 2 days cm10 ago. Pt states that the pain is worse with inspiration. Coronavirus screen: Client denies travel out of the [place] in the last 14 days. At this time, the client does not indicate any symptoms associated with coronavirus-19. Ebola Screen: Patient denies travel to an Ebola-affected area in the 21 days before illness onset. No symptoms or risks identified at this time. Initial Sepsis Screen: Does the patient meet any 2 criteria? No. Patient's initial sepsis screen is negative. Does the patient have a suspected source of infection? No. Patient's initial sepsis screen is negative. Risk Assessment: Do you want to hurt yourself or someone else? Patient reports no desire to harm self or others. Onset of symptoms was January 21, 2024. 22:08 Method Of Arrival: EMS: [facility] cm10 22:08 Acuity: CARMITA 2 cm10 Triage Assessment: 22:09 General: Appears in no apparent distress. comfortable, Behavior is calm, cooperative. cm10 Pain: Complains of pain in chest. Neuro: No deficits noted. Level of Consciousness is awake, alert, obeys commands, Oriented to person, place, time, situation, Appropriate for age. Respiratory: No deficits noted. Airway is patent Respiratory effort is even, unlabored, Respiratory pattern is regular, symmetrical. LINE UP EXAMINER: 01/21 00:16 Not pc2 Historical: - Allergies: 01/20 22:09 CARBAMAZEPINE DERIVATIVES; cm10 22:09 Depakote; cm10 22:09 Tegretol; cm10 - PMHx: 22:09 Seizure; cm10 - Immunization history:: Adult Immunizations up to date. - Infectious Disease History:: Denies. - Social history:: Smoking status: Patient denies any tobacco usage or history of. Screenin/31 00:14 [facility] ED Fall Risk Assessment (Adult) History of falling in the last 3 months, pc2 including since admission No falls in past 3 months (0 pts) Confusion or Disorientation No (0 pts) Intoxicated or Sedated No (0 pts) Impaired Gait No (0 pts) Mobility Assist Device Used No (0 pt) Altered Elimination No (0 pt) Score/Fall Risk Level 0 - 2 = Low Risk Oriented to surroundings, Maintained a safe environment. Abuse screen: Denies threats or abuse. Denies injuries from another. Nutritional screening: No deficits noted. Tuberculosis screening: No symptoms or risk factors identified. Assessment: 01/20 23:11 General: Appears in no apparent distress. comfortable, Behavior is calm, cooperative, pc2 appropriate for age. Pain: Complains of pain in chest Pain does not radiate. Pain began 2-3 days ago. Neuro: Level of Consciousness is awake, alert, obeys commands, Oriented to person, place, time, situation. Cardiovascular: Reports chest pain, since 2 days. Respiratory: Airway is patent Respiratory effort is even, unlabored, Respiratory pattern is regular, symmetrical. GI: No signs and/or symptoms were reported involving the gastrointestinal system. : No signs and/or symptoms were reported regarding the genitourinary system. EENT: No signs and/or symptoms were reported regarding the EENT system. Derm: No signs and/or symptoms reported regarding the dermatologic system. Musculoskeletal: No signs and/or symptoms reported regarding the musculoskeletal system. 01/21 00:30 Reassessment: Patient appears in no apparent distress at this time. Patient is alert, pc2 oriented x 3, equal unlabored respirations, skin warm/dry/pink. Vital Signs: 01/20 22:08 BP 141 / 65; Pulse 63; Resp 16; Temp 97.5(O); Pulse Ox 99% on R/A; Pain 10/10; cm10 01/21 00:45 BP 109 / 69; Pulse 65; Resp 18; Pulse Ox 99% on R/A; pc2 01/20 22:08 Pain Scale: Adult cm10 ED Course: 01/20 21:50 Patient arrived in ED. kb 21:50 [facility] Sewell [facility]C [facility] kb 21:50 Marquise Eng MD is Attending Physician. kb 22:09 Triage completed. cm10 22:10 Arm band placed on Patient placed in waiting room. EKG completed in triage. Results cm10 shown to MD. 22:10 Initial lab(s) drawn, by ED staff, sent to lab. EKG done, by ED staff, reviewed by shayla TORRES. 22:13 Basic Metabolic Panel Sent. rv1 22:13 CBC with Diff Sent. rv1 22:13 Troponin HS Sent. rv1 23:10 Patient has correct armband on for positive identification. Bed in low position. Call pc2 light in reach. Side rails up X 1. Provided Education on: POC and time frame. Client placed on continuous cardiac and pulse oximetry monitoring. NIBP monitoring applied. 23:11 XRAY Chest (1 view) In Process Unspecified. EDMS 23:15 Patient maintains SpO2 saturation greater than 95% on room air. pc2 01/21 00:13 Danyell Mendoza, RN is Primary Nurse. pc2 00:15 No provider procedures requiring assistance completed. pc2 00:49 Patient did not have IV access during this emergency room visit. pc2 Administered Medications: No medications were administered Medication: 00:14 VIS not applicable for this client. pc2 Outcome: 00:04 Discharge ordered by . kb 00:49 Discharged to home ambulatory, pc2 00:49 Condition: stable 00:49 Discharge instructions given to patient, Instructed on discharge instructions, follow up and referral plans. Demonstrated understanding of instructions, follow-up care, 00:58 Patient left the ED. pc2 Signatures: Dispatcher [employer] Cristina Mandujano FNP-C FNP-Dayanna Adam rv1 Iris Perez, RN RN cm10 Danyell Mendoza, RN RN pc2
--- NOTE | 2024-01-22 00:04 | EDPHYS ---
Physician Documentation [facility] Name: Davida Hodges Age: 48 yrs Sex: Female : 1975 Arrival Date: 01/21/2024 Time: 21:49 Bed 14 Private MD: ED Physician Marquise Eng HPI: 01/20 21:51 This 48 yrs old Female presents to ER via Unassigned with complaints of chest kb pain. 23:18 Pt is a 48 year old female who presents for left sided chest pain that started 2 days kb ago. Reports some shortness of breath as well. . PROCESS COORDINATOR: 01/21 00:16 Not pc2 Historical: - Allergies: 01/20 22:09 CARBAMAZEPINE DERIVATIVES; cm10 22:09 Depakote; cm10 22:09 Tegretol; cm10 - PMHx: 22:09 Seizure; cm10 - Immunization history:: Adult Immunizations up to date. - Infectious Disease History:: Denies. - Social history:: Smoking status: Patient denies any tobacco usage or history of. ROS: 21:50 Constitutional: As per HPI kb Exam: 21:50 Constitutional: This is a well developed, well nourished patient who is awake, alert, kb and in no acute distress. Head/Face: Normocephalic, atraumatic. ENT: Moist Mucous membranes Cardiovascular: Regular rate Respiratory: Respirations even and unlabored. No increased work of breathing. Talking in full sentences Skin: Warm, dry with normal turgor. Normal color. MS/ Extremity: Pulses equal, no cyanosis. Neurovascular intact. Full, normal range of motion. Neuro: Awake and alert, GCS 15, oriented to person, place, time, and situation. Moves all extremities. Normal gait. 23:19 ECG was reviewed by the Attending Physician. kb Vital Signs: 22:08 BP 141 / 65; Pulse 63; Resp 16; Temp 97.5(O); Pulse Ox 99% on R/A; Pain 10/10; cm10 01/21 00:45 BP 109 / 69; Pulse 65; Resp 18; Pulse Ox 99% on R/A; pc2 01/20 22:08 Pain Scale: Adult cm10 MDM: 01/20 21:50 Patient medically screened. kb 23:19 Data reviewed: vital signs, nurses notes. Historians other than the Patient: EMS: [place]. 01/21 00:03 Differential diagnosis: abnormal EKG, acute myocardial infarction, anxiety. Counseling: elpidio I had a detailed discussion with the patient and/or guardian regarding the historical points, exam findings, and any diagnostic results supporting the discharge/admit diagnosis, lab results, radiology results, the need for outpatient follow up, a family practitioner, to return to the emergency department if symptoms worsen or persist or if there are any questions or concerns that arise at home. 01/20 21:55 Order name: Basic Metabolic Panel; Complete Time: 22:48 kb 01/20 21:55 Order name: CBC with Diff; Complete Time: 22:48 kb 01/20 21:55 Order name: Troponin HS; Complete Time: 22:48 kb 01/20 21:55 Order name: XRAY Chest (1 view) 01/20 21:55 Order name: EKG; Complete Time: 21:55 kb 01/20 21:55 Order name: Cardiac monitoring; Complete Time: 00:14 kb 01/20 21:55 Order name: EKG - Nurse/Tech; Complete Time: 22:11 kb 01/20 21:55 Order name: IV Saline Lock; Complete Time: 00:14 kb 01/20 21:55 Order name: Labs collected and sent; Complete Time: 22:13 kb 01/20 21:55 Order name: O2 Per Protocol; Complete Time: 00:14 kb 01/20 21:55 Order name: O2 Sat Monitoring; Complete Time: 00:14 kb EC/30 23:19 Rate is 67 beats/min. Rhythm is regular. QRS [place] is Normal. LA interval is normal at kb 140 msec. QRS interval is normal at 88 msec. QT interval is normal at 407 msec. Administered Medications: No medications were administered Disposition Summary: 01/22/24 00:04 Discharge Ordered Notes: Location: Home kb Condition: Stable kb Diagnosis - Chest pain, unspecified kb Followup: kb - With: Emergency Department - When: As needed - Reason: Worsening of condition Followup: kb - With: Private Physician - When: 2 - 3 days - Reason: Recheck today's complaints, Continuance of care, Re-evaluation by your physician Discharge Instructions: - Discharge Summary Sheet kb - Nonspecific Chest Pain, Adult, [id number] kb Forms: - Medication Reconciliation Form kb - Antibiotic Education kb - Prescription Opioid Use kb - Patient Portal Instructions kb - Leadership Thank You Letter kb Addendum: 01/23/2024 02:43 I was immediately available for consultation during this patient's visit. I did not e c2 personally see the patient or discuss the patient with the LIANE. . Signatures: Dispatcher [employer] Cristina Mandujano FNP-C FNP-Ckb Martinez, Clarissa, RN RN cm10 Marquise Eng MD MD ec2
[2024-01-22 09:22] VITALS: TEMP 97.5; O2SAT 99
[2024-01-22 09:23] VITALS: BP 109/69
--- NOTE | 2024-01-22 11:42 | EKG ---
Test Date: 2024-01-21 Test Time: 22:06:58 [employer] Worker: ELIJAH MEASUREMENT RESULTS: Intervals: Rate: 67 LA: 140 QRSD: 88 QT: 386 QTc: 407 [place]: P: 27 LA: 140 QRS: 41 T: -53 INTERPRETIVE STATEMENTS: Normal sinus rhythm Nonspecific T wave abnormality Abnormal ECG Compared to ECG 01/17/2024 23:32:29 Prolonged QT interval no longer present T-wave abnormality still present Electronically Signed On 01-22-24 11:41:19 CDT by Junior Acosta
--- NOTE | 2024-01-22 23:04 | RAD REPORT ---
EXAM DESCRIPTION: RAD - Chest Single View - 01/21/2024 11:10 pm CLINICAL HISTORY: Chest pain COMPARISON: Chest 1 View AP 01/18/2024 TECHNIQUE: Chest 1 View AP FINDINGS: Patient's neck partially obscures superiormost chest. Moderate decreased inspiration (decreased lung volumes) makes evaluation more difficult. Trachea midline. Heart size and pulmonary vessels within normal limits. Lungs clear without evidence of consolidation, mass, or significant pulmonary edema. No significant pleural effusion or pneumothorax. Moderate diffuse osteopenia. Thoracic spine degenerative disease. IMPRESSION: No radiographic evidence of acute chest disease. Electronically signed by: Britton Rowley MD 01/21/2024 11:32 PM CDT RP Due to temporary technical issues with the PACS/Fluency reporting system, reports are being signed by the in house radiologists without review as a courtesy to insure prompt reporting. The interpreting radiologist is fully responsible for the content of the report.
== END 2024-01-22 00:58 | disposition home or self-care (01) ==
LOC: ER 21:49
DX: R07.9 Chest pain, unspecified (principal); R06.02 Shortness of breath
CPT/HCPCS: 36415; 71045; 80048; 84484; 85025; 93005; 99284

== ENCOUNTER 2024-02-15 12:43 | Emergency (ER) | payer SELFPAY ==
--- OUTSIDE RECORDS SUMMARY | 2024-02-15 12:52 | XMS REPORT | Continuity of Care Document ---
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 02:43:00 Henry Owen [facility] XR KNEE <3 VW RIGHT 2019-07-14 02:43:00 Henry Owen [facility] XR SHOULDER <2 VW LEFT 2019-07-14 02:43:00 Ivory Owen [facility] [id number] Ecg Routine Ecg W/least 12 Lds W/i r 2017-09-24 00:00:00 Henry Contreras Encounters Start Date/Time End Date/Time Encounter Type Admission Type Attending [facility] Care Department Encounter ID Source 2022-11-13 13:10:28 Inpatient [facility] [id number] [facility] 2022-11-05 09:23:13 Inpatient [facility] [id number] [facility] 2024-02-06 11:12:07 2024-02-06 11:12:07 Outpatient [facility] S[facility] [id number] Henry F Ben 2024-01-02 13:29:25 2024-01-02 13:29:25 Outpatient SFA SFA [id number] Henry Quiles Ben 2024-01-01 13:05:17 2024-01-01 13:05:17 Outpatient SFA SFA [id number] Henry Etta Ben 2023-12-23 17:12:35 2023-12-23 17:12:35 Outpatient SFA SFA [id number] Henry F Ben 2023-12-22 16:03:42 2023-12-22 16:03:42 Outpatient SFA SFA [id number] Henry Etta Ben 2023-12-01 14:21:07 2023-12-01 14:21:07 Outpatient SFA SFA 06 Henry Contreras 2023-11-25 16:08:00 2023-11-25 16:08:00 Outpatient SFA SFA [id number] Henry Contreras 2023-11-25 00:00:00 2023-11-25 00:00:00 Outpatient Visit SFA [id number] Henry Contreras 2023-11-23 19:45:00 2023-11-24 19:04:00 Outpatient Encounter 1 [facility] 2.16.840.1. [id number] [facility] 2023-11-21 19:00:00 2023-11-22 01:00:00 Emergency ER [id number] [facility] 2023-11-16 23:05:00 2023-11-21 17:28:00 Inpatient ER [id number] [facility] 2023-11-15 16:24:00 2023-11-15 22:54:00 Emergency ER MELVINA SHEPHERD CHRTJP CHRTJP [id number] [facility] 2023-10-28 12:27:38 2023-10-28 12:27:38 Outpatient SFA SFA [id number] Henry Quiles Ben 2023-10-25 15:44:11 2023-10-25 15:44:11 Outpatient SFA SFA [id number] Henry Quiles Ben 2023-10-25 00:00:00 2023-10-25 00:00:00 Outpatient Visit SFA [id number] Henry Quiles Ben 2023-10-04 15:25:52 2023-10-04 15:25:52 Outpatient SFA SFA [id number] Henry Contreras 2023-10-01 00:00:00 2023-10-01 00:00:00 Telephone [facility] 1.2.840.114 350.1.13.10 4.2.7.2.686 [id number] [facility] 2023-09-16 16:03:08 2023-09-16 16:03:08 Outpatient [facility] [id number] Henry Quiles Ben 2023-08-01 10:00:49 2023-08-01 10:00:49 Outpatient [facility] [id number] Henry Quiles [facility] 2023-07-23 14:20:00 2023-07-23 16:57:02 Outpatient [facility] [id number] [facility] 2023-07-23 14:20:00 2023-07-23 16:57:02 Office Visit [facility] 1.2.840.114 350.1.13.10 4.2.7.2.686 [id number] [facility] 2023-07-23 00:00:00 2023-07-23 00:00:00 Orders Only Doctor Unassigned, [place] [address]840.114 350.1.13.10 4.2.7.2.686 [id number] [facility] 2023-07-04 16:48:23 2023-07-04 16:48:[address] [facility] [id number] Henry Quiles Ben 2023-06-18 10:35:36 2023-06-18 10:35:36 Outpatient [facility] [id number] Henry Contreras 2023-06-05 00:00:00 2023-06-05 00:00:00 Orders Only Doctor Unassigned, [place] [address]2840.114 350.1.13.10 4.2.7.2.686 [id number] [facility] 2023-06-04 16:00:39 2023-06-04 16:00:39 Outpatient [facility] [id number] Henry Contreras 2023-05-24 15:38:52 2023-05-24 15:38:52 Outpatient [facility] [id number] Henry Contreras 2023-05-22 00:00:00 2023-05-22 00:00:00 Letter (Out) Neurology [facility] 1.840.114 350.1.13.10 4.2.7.2.686 [id number] [facility] 2023-05-20 00:00:00 2023-05-20 00:00:00 Orders Only Doctor Unassigned, [place] [facility] 1.840.114 350.1.13.10 4.2.7.2.686 [id number] [facility] 2023-05-17 15:07:14 2023-05-17 15:07:14 Outpatient [facility] [id number] Henry Contreras 2023-03-02 12:27:43 2023-03-02 12:27:43 Outpatient [facility] [id number] Henry Contreras 2023-01-09 17:11:26 2023-01-09 17:11:26 Outpatient [facility] [id number] Henry Contreras 2022-11-04 14:04:00 2022-11-05 11:09:00 Emergency [facility]ESS FALCON [facility] [id number] [facility] 2022-09-24 12:33:00 2022-09-24 12:51:00 Emergency Heri Snow [facility] 1.84.114 350.1.13.10 4.2.7.2.686 [id number] [facility] 2022-09-22 00:00:00 2022-09-22 00:00:00 Nurse Triage Marisa barclay Madhavi Mota [facility] .840.114 350.1.13.10 4.2.7.2.686 [id number] [facility] 2022-09-18 10:09:00 2022-09-19 14:28:00 Inpatient EM Marly Mendenhall [facility] OBSE [id number] 25 [facility] 2022-09-16 22:50:00 2022-09-17 01:40:00 Emergency EM Asim Jack [facility] FABI [id number] [facility] 2022-09-14 14:52:00 2022-09-15 14:00:00 Inpatient EM Vladimir Forbes [facility] TELE [id number] 75 [facility] 2022-09-13 09:34:00 2022-09-13 13:00:00 Emergency EM Brad Woodall [facility] FABI [id number] 75 [facility] 2022-09-10 23:39:00 2022-09-11 11:28:00 [id number] 51 [facility] 2022-09-10 18:57:00 2022-09-10 20:20:00 Emergency ShelbieMarianaSandrita De La Cruz [facility] 1.840.114 350.1.13.10 4.2.7.2.686 [id number] [facility] 2022-09-10 18:57:00 2022-09-10 20:20:00 Emergency SANDRITA CHÁVEZ [facility] ERT [id number] [facility] 2022-09-09 20:45:00 2022-09-09 22:46:00 Emergency SANDRITA CHÁVEZ [facility] ERT [id number] [facility] 2022-09-09 20:45:00 2022-09-09 22:46:00 Emergency Sandrita Key [facility] 1..840.114 350.1.13.10 4.2.7.2.686 [id number] [facility] 2022-09-06 18:09:00 2022-09-07 00:51:00 Emergency X TAYO BOYD [facility] ERT [id number] [facility] 2022-09-06 18:09:00 2022-09-07 00:51:00 Emergency Tayo Boyd J [facility] 1.2840.114 350.1.13.10 4.2.7.2.686 [id number] [facility] 2022-08-21 14:11:33 2022-08-21 14:11:33 Outpatient [facility] [id number] Henry Contreras 2022-07-17 15:03:48 2022-07-17 15:03:48 Outpatient [facility] [id number] Henry Contreras 2021-10-02 15:56:00 2021-10-02 19:00:00 Emergency X JAVED FRANK [facility] ERT [id number] [facility] 2021-10-02 15:56:00 2021-10-02 19:00:00 Emergency Javed Frank [facility] 1.2840.114 350.1.13.10 4.2.7.2.686 [id number] [facility] 2021-05-05 13:22:00 2021-05-05 14:48:00 Emergency X DEON NUNEZ [facility] ERT [id number] [facility] 2021-05-05 13:22:00 2021-05-05 14:48:00 Emergency Deon Nunez [facility] 1.2.840.114 350.1.13.10 4.2.7.2.686 [id number] [facility] 2021-05-05 00:00:00 2021-05-05 00:00:00 Orders Only Doctor Unassigned, [place] [facility] 1.2.840.114 350.1.13.10 4.2.7.2.686 [id number] [facility] 2019-12-15 17:11:56 2019-12-15 18:04:00 Emergency Kp Gilliland [facility] 1.2.840.114 350.1.13.10 4.2.7.2.686 [id number] [facility] 2019-12-15 17:11:56 2019-12-15 18:04:00 Emergency Kp Gilliland [facility] 1.2.840.114 350.1.13.10 4.2.7.2.686 [id number] 2019-12-15 17:11:56 2019-12-15 17:11:56 Emergency X Kp GILLILAND [facility] ERT [id number] [facility] 2019-10-25 18:31:31 2019-10-25 19:21:00 Emergency Kristin Miller [facility] 1.2.840.114 350.1.13.10 4.2.7.2.686 [id number] [facility] 2019-10-25 18:31:31 2019-10-25 19:21:00 Emergency Kristin Miller [facility] 1.2.840.114 350.1.13.10 4.2.7.2.686 [id number] 2019-10-25 18:31:31 2019-10-25 18:31:31 Emergency X KRISTIN MILLER [facility] ERT [id number] [facility] 2019-08-13 13:30:00 2019-08-13 14:36:00 Emergency Floridalma Evans [facility] 1.2.840.114 350.1.13.10 4.2.7.2.686 [id number] [facility] 2019-08-13 13:30:00 2019-08-13 14:36:00 Emergency X FLORIDALMA VEANS [facility] ERT [id number] [facility] 2019-08-13 13:30:00 2019-08-13 14:36:00 Emergency Floridalma Evans [facility] 1.2.840.114 350.1.13.10 4.2.7.2.686 [id number] 2019-07-22 13:42:11 2019-07-22 19:02:00 Emergency Unknown, Attending Lisa Morfin [facility] 1.2.840.114 350.1.13.10 4.2.7.2.686 [id number] 2019-07-22 13:42:11 2019-07-22 19:02:00 Emergency X LISA MORFIN [facility] ERT [id number] [facility] 2019-07-22 13:42:11 2019-07-22 19:02:00 Emergency Unknown, Attending Lisa Morfin [facility] 1.2.840.114 350.1.13.10 4.2.7.2.686 [id number] [facility] 2019-07-13 20:17:19 2019-07-13 21:48:00 Emergency X HENRY OWEN [facility] ERT [id number] [facility] 2019-07-13 20:17:19 2019-07-13 21:48:00 Emergency Lexie Henry [facility] 1.2.840.114 350.1.13.10 4.2.7.2.686 [id number] [facility] 2019-07-10 14:26:03 2019-07-10 16:33:00 Emergency X DEBBIE PAYTON [facility] ERT [id number] [facility] 2019-07-10 14:26:03 2019-07-10 16:33:00 Emergency Debbie Payton [facility] 1.2.840.114 350.1.13.10 4.2.7.2.686 [id number] [facility] 2019-07-04 19:09:02 2019-07-04 22:51:00 Emergency X LISA MORFIN [facility] ERT [id number] [facility] 2019-06-30 10:33:08 2019-06-30 13:10:00 Emergency X DEON NUNEZ [facility] ERT [id number] [facility] 2019-05-25 11:58:19 2019-05-25 15:37:00 Emergency X DEON NUNEZ [facility] ERT [id number] [facility] 2019-04-09 22:29:37 2019-04-09 23:28:00 Emergency X FLORIDALMA EVANS [facility] ERT [id number] [facility] 2019-01-21 18:38:01 2019-01-21 19:59:00 Emergency Le Ramirez [facility] 1.2.840.114 350.1.13.10 4.2.7.2.686 [id number] 2019-01-21 18:38:01 2019-01-21 19:59:00 Emergency Le Ramirez [facility] 1.2.840.114 350.1.13.10 4.2.7.2.686 [id number] [facility] Results Test Description Test Time Test Comments Results Result Co mments Source T3 [id number] 04:20:00* Test Item Value Reference Range Interpretation Comme nts T3UP (test code = T3UP) 40.9 % 23.5-40.5 H Thyroxine (T4) free index in Serum or [id number] 04:19:00* Test Item Value Reference Range Interpretation Comme [facility] Thyroxine (T4) free index in Serum or Plasma (test code = 55208-2) 1.05 ng/dL 0.78-2.19 [facility]Thyroid hormone uptake (T-uptake) in Serum or P 2023-11-24 04:18:00* Test Item Value Reference Range Interpretation Comme nts Thyroid hormone uptake (T-up take) in Serum or Plasma (test code = 23289-0) 40.9 % 23.5-40.5 H [facility])URINE DRUG [id number] 00:43:00* Test Item Value Reference Range Interpretation [...] abuse 5 panel - Urine by Screen [id number] 00:40:00 NegativeNegativeNegativeNegativeNegativeNegativeNegative[facility])[id number] 00:33:00* Test Item Value Reference Range Interpretation [...] /HPF 0-2 Urinalysis panel - Urine by [id number] 00:33:00* Test Item Value Reference Range Interpretation Comme nts Ketones [Presence] in Urine (test code = 16818-6) 15 MG/DL NEG N pH of Urine (test code = 2756-5) 5.5 1 5.0-7.5 N Urobilinogen [Presence] in U rine (test code = 05106-2) 0.2 EU/DL 0.2-1.0 N Specific gravity of Urine (t est code = 2965-2) 1.013 1 1.0-1.025 N Leukocytes [Presence] in Uri ne sediment by Light microscopy (test code = 46026-4) 10 /HPF 0.0-5.0 H Erythrocytes [Presence] in U rine sediment by Light microscopy (test code = 00787-7) 2 /HPF 0.0-2.0 N [facility])VITAMIN [id number] 22:47:00* Test Item Value Reference Range Interpretation Comme nts B12 (test code = B12) 880 pg/mL 239-931 [id number] 22:47:00* Test Item Value Reference Range Interpretation Comme nts FOLATE (test code = FOLATE) 8.9 ng/mL 2.76-20.0 THYROID STIMULATION [id number] 22:47:00* Test Item Value Reference Range Interpretation Comme nts TSH (test code = TSH) 6.62 UIU/ML 0.465-4.68 H Cobalamin (Vitamin B12) [Mass/volume] in [id number] 22:47:00* Test Item Value Reference Range Interpretation Comme nts Cobalamin (Vitamin B12) [Mass/volume] in Serum or Plasma (test code = 2132-9) 880 pg/mL 239.0-931.0 [facility])Folate [Mass/volume] in Serum or [id number] 22:47:00* Test Item Value Reference Range Interpretation Comme nts Folate [Mass/volume] in Seru m or Plasma (test code = 2284-8) 8.9 ng/mL 2.76-20.0 N [facility])Thyrotropin in Serum or [id number] 22:47:00* Test Item Value Reference Range Interpretation Comme nts Thyrotropin in Serum or Plas ma (test code = 33668-0) 6.62 UIU/ML 0.465-4.68 H [facility])ER SCREEN FOR HIV / 22:46:00* Test Item Value Reference Range Interpretation Comme nts HIV 1/2 AB (test code = SCRN HIV) NEGATIVE NEGATIVE This test is us ed for SCREENING purposes only. All reactive results are prelimenary and confirmation results will follow. HIV 1+2 Ab [Units/volume] in Pxriq4766-98-84 22:45:[facility]HEPAT[facility]IS C ANTIBODY [id number] 22:28:00* Test Item Value Reference Range Interpretation Comme nts SCRN HCV (test code = SCRN HCV) NEGATIVE NEGATIVE Hepatitis C Anti body test is for screening purposes only. All reactives will be confirmed by additional testing. Hepatitis C virus Ab [Presence] in [id number] 22:27:00[facility]B-HCG QUAL (KIT)2023-11-23 22:01:00* Test Item Value Reference Range Interpretation Comme [facility] HCGQUAL (test code = HCGQUAL) NEGATIVE NEGATIVE URINE: NEGATIVE = < 20 mIU/ML; POSITIVE= >/= 20 mIU/ML SERUM: NEGATIVE = < 10 mIU/ML; POSITIVE= >/= 10 mIU/ML SOURCE (test code = SOURCE) SERUM HCG INTERNAL POSITIVE CNTRL (test code = HCGIPC) PASS PASS HCG LOT # (test code = UHCGLOT) [id number] HCG EXPIRATION DATE (test code = UHCGEXP) Choriogonadotropin.beta subunit ( pwdw0373-75-15 22:01:00* Test Item Value Reference Range Interpretation Comme nts Specimen source [Identifier] of Body fluid (test code = 39212-9) SERUM N Reagent Lot number (test cod e = 08945-3) 1 N [facility])CT HEAD W/O [id number] 22:00:00 [facility] 1975 [facility] [place] [id number] IMAGING REPORTPatient Name: ROBERT, CONCEPTIONDate of Service: 83-83-1602Knl: 48 Sex: F Order #: [id number] Room: ERSDOB: 1975 X-Ray Number: [id number] Record Number: [id number] Hospital Number: [id number] Physician: LAWRENCE MEJIASOrdering Physician: LAWRENCE MEJIASPROCEDURE: CTHEAD [...] 21:59:03CT Head and Orbit - bilateral WO [id number] 21:59:03 ORDER 1400: CT HEAD W/O CONT (LOINC: 71054-1)ORDER DATE: November 24, 2023 12:50:00 AM [facility]CT ABDOMEN/PELVIS [id number] 21:54:00 [facility] : 1975 [facility] [place], [place] [id number] IMAGING REPORTPatient Name: JONATHAN JONESDate of Service: 69-89-5651Drq: 48 Sex: F Order #: [id number] Room: ERSDOB: 1975 X-Ray Number: [id number] Record Number: [id number] Hospital Number: [id number] Physician: LAWRENCE MEJIASOrdering Physician: LAWRENCE MEJIASPROCEDURE: CT [...] YUNIOR MCKEON 2023-11-23 21:53:03 CT Abdomen and [id number] 21:53:03ORDER 1500: CT ABDOMEN/PELVIS WITHOUT (LOINC: 23163-8)ORDER DATE: November 24, 2023 12:50:00 AM [facility])[id number] 21:31:00* Test Item Value Reference Range Interpretation [...] 70-99 Fasting glucos e normal <100 MG/DL- [employer] recommendation CALCIUM (test code = [...] of age is not validated by the boring and filling machine operator and may not represent the patients true [...] should be used in the calculation". CREATINE [id number] 21:31:00* Test Item Value Reference Range Interpretation Comme nts CK (test code = CK) 115 U/L 30-135 BLOOD ALCOHOL (ETOH)2023-11-23 21:31:00* Test Item Value Reference Range Interpretation Comme nts ALCOHOL BLOOD LEVEL (test code = ALC BLD) <10 MG/DL 0-10 Results ar e to be used for medical purposes (treatment) only. Not intended for non medical purposes. Ethanol [Mass/volume] in [id number] 21:30:00* Test Item Value Reference Range Interpretation Comme nts Ethanol [Mass/volume] in Blo od (test code = 5640-8) <10 0.0-10.0 N [facility])Creatine kinase isoenzymes [interpretation] in 2023-11-23 21:30:00* Test Item Value Reference Range Interpretation Comme nts Creatine kinase isoenzymes [interpretation] in Serum or Plasma Narrative (test code = 96037-0) 115 U/L 30.0-135.0 [facility])Comprehensive metabolic 2000 panel - Serum or P 2023-11-23 21:27:00* Test Item Value Reference Range Interpretation Comme nts Sodium [Moles/volume] in Blood (test code = 2947-0) 137 MMOL/L 137.0-145.0 N Potassium [Moles/volume] in Blood (test code = 6298-4) 4.2 MMOL/L 3.5-5.1 N Chloride [Moles/volume] in Blood (test code = 2069-3) 100 MMOL/L 98.0-107.0 N Carbon dioxide, total [Moles/volume] in Blood (test code = 44477-4) 24 MMOL/L 22.0-30.0 N Urea nitrogen [Mass/volume] in Serum or Plasma (test code = 3094-0) 16 MG/DL 7.0-17.0 N Creatinine [Mass/volume] in Blood (test code = 83280-4) 0.6 MG/DL 0.7-1.2 L Glucose [Mass/volume] in Blood (test code = 2339-0) 80 MG/DL 70.0-99.0 N Calcium [Mass/volume] in Serum or Plasma (test code = 30932-7) 10.3 MG/DL 8.4-10.2 H Protein [Mass/volume] in Serum or Plasma (test code = 2885-2) 9.9 G/DL 6.3-8.2 H Albumin [Presence] in Serum or Plasma (test code = 18935-9) 4.7 G/DL 3.5-5.0 N Bilirubin direct and total panel [Mass/volume] - Serum or Plasma (test code = 61662-7) 0.8 MG/DL 0.2-1.3 N Aspartate aminotransferase [Enzymatic [...] 50 percent [- Reported] (test code = 11253-6) 113.0 mL/min/1.73m2 N Anion gap in Serum or Plasma (test code = 00505-3) 13 mmol/L 4.0-12.0 H [facility])[id number] 21:15:00* Test Item Value Reference Range Interpretation [...] 1.2-7.2 CBC W Auto Differential panel - [id number] 21:15:00* Test Item Value Reference Range Interpretation Comme nts Leukocytes other [Identifier ] in Blood by Automated count (test code = 16630-2) 4.5 K/UL 3.5-10.9 N Erythrocytes [#/volume] in B lood (test code = 09805-6) 4.91 M/UL 4.0-5.0 N Hemoglobin A/Hemoglobin.tota l in Blood (test code = 4546-8) 13.8 G/DL 11.5-15.5 N Hematocrit [Volume Fraction] of Blood (test code = 11622-4) 42.4 % 34.0-46.0 N Erythrocyte mean corpuscular volume [Entitic volume] (test code = 81147-2) 86.4 FL 80.0-98.0 N Erythrocyte mean corpuscular hemoglobin [Entitic mass] (test code = 96616-7) 28.1 PG 28.0-32.0 N Erythrocyte mean corpuscular hemoglobin concentration [Mass/volume] (test code = 64082-9) 32.5 G/DL 32.5-36.5 N Erythrocyte distribution wid th [Ratio] (test code = 15553-7) 14.9 % 11.5-14.5 H Platelets panel - Blood by Automated count (test code = 72559-1) 124 K/UL 150.0-450.0 L Platelet mean volume [Entiti c volume] in Blood by Automated count (test code = 70791-0) 10.0 FL 7.4-10.4 N Neutrophils.segmented/100 leukocytes in Blood (test code = 03364-5) 53.3 % 40.0-75.0 N Lymphocytes Variant/100 leuk ocytes in Blood (test code = 45411-2) 33.9 % 24.0-44.0 N Lymphocytes+Monocytes/100 leukocytes in Blood (test code = 4662-3) 10.0 % 0.0-13.0 N Eosinophils [#/volume] in Bl ood (test code = 99161-2) 2.2 % 0.0-4.0 N Basophils [#/volume] in Bloo d (test code = 53486-8) 0.4 % 0.0-2.0 N Immature granulocytes/100 leukocytes in Blood (test code = 74253-1) 0.2 % 0.0-1.0 N Nucleated erythrocytes [#/vo lume] in Blood (test code = 45283-6) 0 /100 WBC N Neutrophils [#/volume] in Bl ood (test code = 65012-3) 2.4 K/UL 1.2-7.2 N [facility] [place]PAP TEST, THINPREP, [id number] 16:02:24* Test Item Value Reference Range Interpretation Comme nts SOURCE: (test code = 8001) Cervical/Endoce rvical SLIDES: (test code = 8011) 1 LMP: (test code = 8021) SEE NOTE POST MENOPAUSAL SPECIMEN ADEQUACY: (test code = 74031) (NOTE) Satisfactory for evaluation. Endocervical cells/transformation zone component present. INTERPRETATION: (test code = 31090) NILM/NO EPITH. ABNORMALITY;SEE BELOW --- - NEGATIVE FOR INTRAEPITHELIAL LESION OR MALIGNANCY (NILM) ---- CLIENT MANAGER : (test code = 8101) Jami Smalls LOCATION: (test code = 08171) (NOTE) Specimens proces sed and interpreted at [facility], [address] [place] [address], , CLIA: [id number] CPT: (test code = 8140) (NOTE) 77659 UNLESS OTH ERWISE INDICATED, COMPUTER AIDED AND CLIENT MANAGER SCREENING PERFORMED. The Pap test is a screening test with an inherent, but low probability of error. Your patient should be reminded to consult you immediately if she experiences any suspicious signs or symptoms, regardless of her Pap test result. An alternate report format containing images or consolidated prior Pap history is available as applicable. HPV HIGH RISK WITH GENOTYPE, [id number] 15:53:52* Test Item Value Reference Range Interpretation Comme nts HPV HIGH RISK INTERP (test code = 29893) NEGATIVE NEGATIVE HPV 16 (test code = 15140) NEGATIVE HPV 18 (test code = 77705) NEGATIVE HPV, HR, OTHER GENOTYPES (test code = 16738) NEGATIVE Testing methodol ogy is real-time PCR [...] TESTING PERFORMED AT [facility] [address] [place] [address] ELECTRODE CLEANER: JATIN FELIPE M.D. CLIA NUMBER [id number] [facility]. [id number] HPV HIGH RISK WITH GENOTYPE, [id number] 00:00:00* Test Item Value Reference Range Interpretation Comme nts HPV HIGH RISK INTERP (test c ode = 80990) NEGATIVE HPV 16 (test code = 16314) NEGATIVE HPV 18 (test code = 47765) NEGATIVE HPV, HR, OTHER GENOTYPES (te st code = 47831) NEGATIVE PDFE (test code = PDFReport) PDF Henry ContrerasPAP TEST, THINPREP, [id number] 00:00:00* Test Item Value Reference Range Interpretation Comme nts SOURCE: (test code = 8001) Cervical/Endocervical SLIDES: (test code = 8011) 1 LMP: (test code = 8021) SEE NOTE SPECIMEN ADEQUACY: (test code = 62233) (NOTE) INTERPRETATION: (test code = 85169) NILM/NO EPITH. ABNORMALITY;SEE BELOW CLIENT MANAGER: (test code = 8101) Jami Smalls LOCATION: (test code = 03313) (NOTE) CPT: (test code = 8140) (NOTE) Henry ContrerasHPV HIGH RISK WITH GENOTYPE, [id number] 00:00:00* Test Item Value Reference Range Interpretation Comme nts HPV HIGH RISK INTERP (test c ode = 64880) NEGATIVE HPV 16 (test code = 82989) NEGATIVE HPV 18 (test code = 70483) NEGATIVE HPV, HR, OTHER GENOTYPES (te st code = 84480) NEGATIVE PDFE (test code = PDFReport) PDF Henry ContrerasPAP TEST, THINPREP, [id number] 00:00:00* Test Item Value Reference Range Interpretation Comme nts SOURCE: (test code = 8001) Cervical/Endocervical SLIDES: (test code = 8011) 1 LMP: (test code = 8021) SEE NOTE SPECIMEN ADEQUACY: (test code = 05260) (NOTE) INTERPRETATION: (test code = 58368) NILM/NO EPITH. ABNORMALITY;SEE BELOW CLIENT MANAGER: (test code = 8101) Jami Smalls LOCATION: (test code = 90348) (NOTE) CPT: (test code = 8140) (NOTE) Henry ContrerasPAP TEST, THINPREP, IMAGED [ADDED]2023-10-10 00:00:00* Test Item Value Reference Range Interpretation Comme nts SOURCE: (test code = 8001) Unspecified SLIDES: (test code = 8011) 2 LMP: (test code = 8021) NOT GIVEN SPECIMEN ADEQUACY: (test code = 07534) (NOTE) INTERPRETATION: (test code = 02281) UNSATISFACTORY; SEE BELOW OTHER COMMENTS: (test code = 8081) (NOTE) CLIENT MANAGER: (test code = 8101) Jose Bustillos QC TECHNOLOGIST: (test code = 8111) RAUL Wilde(ASCP),IAC LOCATION: (test code = 63373) (NOTE) CPT: (test code = 8140) (NOTE) Henry F AustinHPV HIGH RISK IF ASC/LSIL, THINPREP [ADDED]2023-10-10 00:00:00* Test Item Value Reference Range Interpretation Comme nts HPV HIGH RISK IF ASC/LSIL, THINPREP (test code = 67823) CRITERIA NOT MET Henry Etta AustinPAP TEST, THINPREP, IMAGED [ADDED]2023-10-10 00:00:00* Test Item Value Reference Range Interpretation Comme nts SOURCE: (test code = 8001) Unspecified SLIDES: (test code = 8011) 2 LMP: (test code = 8021) NOT GIVEN SPECIMEN ADEQUACY: (test code = 50954) (NOTE) INTERPRETATION: (test code = 78211) UNSATISFACTORY; SEE BELOW OTHER COMMENTS: (test code = 8081) (NOTE) CLIENT MANAGER: (test code = 8101) Jose Bustillos QC TECHNOLOGIST: (test code = 8111) RAUL Wilde(ASCP),IAC LOCATION: (test code = 65514) (NOTE) CPT: (test code = 8140) (NOTE) Henry F AustinHPV HIGH RISK IF ASC/LSIL, THINPREP [ADDED]2023-10-10 00:00:00* Test Item Value Reference Range Interpretation Comme nts HPV HIGH RISK IF ASC/LSIL, THINPREP (test code = 19070) CRITERIA NOT MET Henry F AustinGONORRHEA, NAAT, THINPREP [ADDED]2023-10-08 00:00:00* Test Item Value Reference Range Interpretation Comme nts GONORRHEA, NAAT, THINPREP (t est code = 66541) NEGATIVE Henry ContrerasCHLAMYDIA, NAAT, THINPREP [ADDED]2023-10-08 00:00:00* Test Item Value Reference Range Interpretation Comme nts CHLAMYDIA, NAAT, THINPREP (t est code = 37117) NEGATIVE PDFE (test code = PDFReport) PDF Henry ContrerasGONORRHEA, NAAT, THINPREP [ADDED]2023-10-08 00:00:00* Test Item Value Reference Range Interpretation Comme nts GONORRHEA, NAAT, THINPREP (t est code = 13153) NEGATIVE Henry ContrerasCHLAMYDIA, NAAT, THINPREP [ADDED]2023-10-08 00:00:00* Test Item Value Reference Range Interpretation Comme nts CHLAMYDIA, NAAT, THINPREP (t est code = 28951) NEGATIVE PDFE (test code = PDFReport) PDF Henry Griffin, THIRD [id number] 08:14:44* Test Item Value Reference Range Interpretation Comme nts TSH, THIRD GENERATION (test code = 2821) 5.200 UIU/ML 0.400-4.100 H UNLESS OTHERWISE INDICATED, ALL TESTING PERFORMED AT [facility] [address] [place] [address] ELECTRODE CLEANER: JATIN FELIPE M.D. CLIA NUMBER [id number] [facility] [place]. [id number] 00:00:00* Test Item Value Reference Range Interpretation Comme nts TSH, THIRD GENERATION (test code = 2821) 5.200 UIU/ML Henry [id number] 00:00:00* Test Item Value Reference Range Interpretation Comme nts TSH, THIRD GENERATION (test code = 2821) 5.200 UIU/ML Henry MonroyH, THIRD [id number] 23:53:27* Test Item Value Reference Range Interpretation Comme nts TSH, THIRD GENERATION (test code = 2821) 11.100 UIU/ML 0.400-4.100 H COMPREHENSIVE METABOLIC [id number] 23:46:03* Test Item Value Reference Range Interpretation [...] 13 U/L 5-40 CBC W/AUTO DIFF WITH [id number] 08:48:44* Test Item Value Reference Range Interpretation [...] 0.00-0.10 ABS NUCLEATED RBCS (test code = 68733) 0.00 K/UL 0.00-0.11 UNLESS OTHER MONTOYA INDICATED, ALL TESTING PERFORMED AT [facility] [address] [place] [address] ELECTRODE CLEANER: JATIN FELIPE M.D. CLIA NUMBER [id number] [facility] [place]. [id number] 00:00:00* Test Item Value Reference Range Interpretation Comme nts TSH, THIRD GENERATION (test code = 2821) 11.100 UIU/ML [facility] W/AUTO [id number] 00:00:00* Test Item Value Reference Range Interpretation [...] ABS NUCLEATED RBCS (test cod e = 43412) 0.00 K/UL Henry F BenCOMPREHENSIVE METABOLIC [id number] 00:00:00* Test Item Value Reference Range Interpretation Comme nts GLUCOSE (test code = 2217) 97 MG/DL BUN (test code = 2208) 7 MG/DL CREATININE (test code = 2214) 0.61 MG/DL eGFR (2020 CKD-EPI) (test code = 33502) 110 ML/MIN/1.73 CALC BUN/CREAT (test code = [...] (test code = 2219) 13 U/L Henry [id number] 00:00:00* Test Item Value Reference Range Interpretation Comme nts TSH, THIRD GENERATION (test code = 2821) 11.100 UIU/ML Henry ContrerasCBC W/AUTO [id number] 00:00:00* Test Item Value Reference Range Interpretation [...] ABS NUCLEATED RBCS (test cod e = 85597) 0.00 K/UL Henry ContrerasCOMPREHENSIVE METABOLIC [id number] 00:00:00* Test Item Value Reference Range Interpretation Comme nts GLUCOSE (test code = 2217) 97 MG/DL BUN (test code = 2208) 7 MG/DL CREATININE (test code = 2214) 0.61 MG/DL eGFR (2020 CKD-EPI) (test code = 33153) 110 ML/MIN/1.73 CALC BUN/CREAT (test code = 2235) 11 RATIO SODIUM (test code = 223) 132 MEQ/L POTASSIUM (test code = 2228) 4.1 MEQ/L CHLORIDE (test code = 2215) 95 MEQ/L CARBON DIOXIDE (test code = 2206) 26 MEQ/L CALCIUM (test code = 2209) 9.5 MG/DL PROTEIN, TOTAL (test code = 222) 7.9 G/DL ALBUMIN (test code = 220) 3.8 G/DL CALC GLOBULIN (test code = 2240) 4.1 G/DL CALC A/G RATIO (test code = 2234) 0.9 RATIO BILIRUBIN, TOTAL (test code = 220) 0.2 MG/DL ALKALINE PHOSPHATASE (test code = 2203) 70 U/L AST (test code = 221) 20 U/L ALT (test code = 221) 13 U/L Henry [id number] 01:13:06* Test Item Value Reference Range Interpretation Comme nts TRANSFERRIN (test code = 4936) 315 MG/DL 200-360 UNLESS OTHERWISE INDICATED, ALL TESTING PERFORMED AT [facility] [address] [place] [address] ELECTRODE CLEANER: JATIN FELIPE M.D. CLIA NUMBER [id number] [facility] [place]. [id number] LIPID [id number] 01:12:48* Test Item Value Reference Range Interpretation [...] SPECIMENS. FOR MOREINFORMATION, SEE CLIENT ANNOUNCEMENT AT [email or web address] RISK RATIO LDL/HDL (test code = 2238) 1.34 RATIO <3.22 COMPREHENSIVE METABOLIC [id number] 01:12:48* Test Item Value Reference Range Interpretation [...] IRON BINDING CAPACITY AND IRON AND % [id number] 01:12:48* Test Item Value Reference Range Interpretation Comme nts IRON, SERUM (test code = 2221) 51 UG/DL 37-145 UNSATURATED IBC (test code = 39456) 356 UG/DL 112-347 H CALC TOTAL IBC (test code = 2076) 407 UG/DL 250-450 CALC % IRON SAT (test code = 2078) 13 % 20-50 L [id number] 00:59:24* Test Item Value Reference Range Interpretation Comme nts FERRITIN (test code = 2074) 20 NG/ML 13-200 LIPID [id number] 00:00:00* Test Item Value Reference Range Interpretation Comme nts CHOLESTEROL (test code = 2210) 191 MG/DL TRIGLYCERIDES (test code = 2232) 89 MG/DL HDL CHOLESTEROL (test code = 2220) 74 MG/DL CALC LDL CHOL (test code = 2237) 99 MG/DL RISK RATIO LDL/HDL (test cod e = 2238) 1.34 RATIO Henry ContrerasCOMPREHENSIVE METABOLIC [id number] 00:00:00* Test Item Value Reference Range Interpretation Comme nts GLUCOSE (test code = 2217) 92 MG/DL BUN (test code = 2208) 15 MG/DL CREATININE (test code = 2214) 0.65 MG/DL eGFR (2020 CKD-EPI) (test code = 74672) 108 ML/MIN/1.73 CALC BUN/CREAT (test code = [...] (test code = 2219) 7 U/L Henry Quiles BenIRON BINDING CAPACITY AND IRON AND % [id number] 00:00:00* Test Item Value Reference Range Interpretation Comme nts IRON, SERUM (test code = 2221) 51 UG/DL UNSATURATED IBC (test code = ) 356 UG/DL CALC TOTAL IBC (test code = 2076) 407 UG/DL CALC % IRON SAT (test code = 2078) 13 % Henry [id number] 00:00:00* Test Item Value Reference Range Interpretation Comme nts FERRITIN (test code = 2075) 20 NG/ML Henry [id number] 00:00:00* Test Item Value Reference Range Interpretation Comme nts TRANSFERRIN (test code = 4936) 315 MG/DL Henry Quiles AustinLIPID [id number] 00:00:00* Test Item Value Reference Range Interpretation Comme nts CHOLESTEROL (test code = 2210) 191 MG/DL TRIGLYCERIDES (test code = 2232) 89 MG/DL HDL CHOLESTEROL (test code = 2220) 74 MG/DL CALC LDL CHOL (test code = 2237) 99 MG/DL RISK RATIO LDL/HDL (test cod e = 2238) 1.34 RATIO Henry ContrerasCOMPREHENSIVE METABOLIC [id number] 00:00:00* Test Item Value Reference Range Interpretation Comme nts GLUCOSE (test code = 2217) 92 MG/DL BUN (test code = 2208) 15 MG/DL CREATININE (test code = 2214) 0.65 MG/DL eGFR (2020 CKD-EPI) (test code = 13899) 108 ML/MIN/1.73 CALC BUN/CREAT (test code = [...] ContrerasIRON BINDING CAPACITY AND IRON AND % [id number] 00:00:00* Test Item Value Reference Range Interpretation Comme nts IRON, SERUM (test code = 2222) 51 UG/DL UNSATURATED IBC (test code = 18764) 356 UG/DL CALC TOTAL IBC (test code = 2077) 407 UG/DL CALC % IRON SAT (test code = 2079) 13 % Henry [id number] 00:00:00* Test Item Value Reference Range Interpretation Comme shaina FERRITIN (test code = 2075) 20 NG/ML Henry [id number] 00:00:00* Test Item Value Reference Range Interpretation Comme shaina TRANSFERRIN (test code = 4936) 315 MG/DL Henry ContrerasHEMOGLOBIN [id number] 03:08:40* Test Item Value Reference Range Interpretation Comme shaina HEMOGLOBIN A1c (test code = 41589) 5.5 % 4.2-5.6 CBC W/AUTO DIFF WITH [id number] 02:29:36* Test Item Value Reference Range Interpretation Comme shaina WBC (test code = 1001) 5.0 K/UL [...] = 1065) 0.0 /100 WBC'S See_Comment [Automated [employer]] The system which generated this result [...] 0.00-0.10 ABS NUCLEATED RBCS (test code = 77577) 0.00 K/UL 0.00-0.11 CBC W/AUTO [id number] 00:00:00* Test Item Value Reference Range Interpretation [...] ABS NUCLEATED RBCS (test cod e = 78138) 0.00 K/UL Henry ContrerasHEMOGLOBIN [id number] 00:00:00* Test Item Value Reference Range Interpretation Comme nts HEMOGLOBIN A1c (test code = 34099) 5.5 % Henry ContrerasCBC W/AUTO [id number] 00:00:00* Test Item Value Reference Range Interpretation [...] ABS NUCLEATED RBCS (test cod e = 53044) 0.00 K/UL Henry ContrerasHEMOGLOBIN [id number] 00:00:00* Test Item Value Reference Range Interpretation Comme nts HEMOGLOBIN A1c (test code = 26148) 5.5 % Henry Quiles AustinDRUGS OF [id number] 05:03:00* Test Item Value Reference Range Interpretation [...] 200 ng/mL Opiates 300 ng/mL URINALYSIS WITH [id number] 04:56:00* Test Item Value Reference Range Interpretation [...] (test code = USPERM) /HPF NONE URINE [id number] 04:53:00* Test Item Value Reference Range Interpretation [...] the FDA and the [employer] (CAP) are more stringent than those required for this test. Therefore, the result should be interpreted with caution and close attention to other clinical and epidemiological data [id number] 16:00:00* Test Item Value Reference Range Interpretation Comme nts SALICYLATE (test code = 94B) <3.0 mg/dL 15.0-30.0 L LIVER [id number] 15:49:00* Test Item Value Reference Range Interpretation [...] code = 31A) <7 IU/L 10-49 L [id number] 15:48:00* Test Item Value Reference Range Interpretation [...] to interpret this result as normal/abnormal. AMMONIA [id number] 15:48:00* Test Item Value Reference Range Interpretation [...] (test code = MDIFF) NO BASIC METABOLIC [id number] 15:31:00* Test Item Value Reference Range Interpretation [...] mg/dL 8.3-10.6 XR FOOT LEFT COMPLETE 3 [id number] 15:11:04 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 CENTERName: RODRIGO JONES : 1975 Sex: FEXAMINATION:XR ANKLE LEFT COMPLETE 3 VIEWSCLINICAL INDICATION:Female, 47 years old with Sprain of jointCOMPARISON: NoneFINDINGS:Three view(s) of the ankle obtained.Joint spaces: Anatomic.Bones: No acute fractures noted. Old healed fractures of the distal tibia and fibular noted.Soft tissues: Unremarkable.IMPRESSION: No acute findings.Electronically signed by: Nikko Santiago MD 11/04/2022 3:10 PM CDT [id number] BEDSIDE [id number] 11:51:00* Test Item Value Reference Range Interpretation Comme nts GLUCOSE BEDSIDE TESTING (karen t code = GLUBED) 79 MG/DL 70-119 N GLUCOSE BEDSIDE [id number] 06:23:00* Test Item Value Reference Range Interpretation Comme nts GLUCOSE BEDSIDE TESTING (karen t code = GLUBED) 80 MG/DL 70-119 N BASIC METABOLIC [id number] 05:12:00* Test Item Value Reference Range Interpretation [...] <2.0 indicates None DetectedPerformed At: [facility] [address] [id number] Michael Reeves MD Ph:[phone] GLUCOSE BEDSIDE [id number] 19:51:00* Test Item Value Reference Range Interpretation Comme nts GLUCOSE BEDSIDE TESTING (karen t code = GLUBED) 129 MG/DL 70-119 H OSMOLALITY [id number] 17:56:00* Test Item Value Reference Range Interpretation Comme nts OSMOLALITY SERUM (test code = OSMO) 269 mOsm/kg 275-300 L THYROID STIMULATING [id number] 17:56:00* Test Item Value Reference Range Interpretation Comme nts THYROID STIMULATING HORMONE (test code = TSH) 4.190 mc IU/ML 0.340-4.820 N GLUCOSE BEDSIDE [id number] 15:49:00* Test Item Value Reference Range Interpretation [...] code = VALP) 37.5 mcG/ML 50.0-100.0 L [id number] 14:26:00* Test Item Value Reference Range Interpretation Comme nts AMMONIA (test code = AMM) 29.0 mcMOL/L 11.0-32.0 N GLUCOSE BEDSIDE [id number] 11:51:00* Test Item Value Reference Range Interpretation Comme nts GLUCOSE BEDSIDE TESTING (karen t code = GLUBED) 88 MG/DL 70-119 N GLYCOSYLATED HEMOGLOBIN (HA1C)2022-09-18 06:53:00* Test Item Value Reference Range Interpretation Comme nts GLYCOSYLATED HEMOGLOBIN (HA1 C) (test code = GLYHGB) 5.2 % IS-A1C 4.5-5.6 N ESTIMATED AVERAGE [id number] 06:53:00* Test Item Value Reference Range Interpretation [...] to interpret this result as normal/abnormal. UR [id number] 21:28:00* Test Item Value Reference Range Interpretation Comme nts UR SODIUM RANDOM (test code = JESUSITA) 93 mmol/L 40-200 N UR POTASSIUM RANDOM (test code = KU) 54.8 mmol/L 25-125 N NO ESTABLISHED NORMAL RANGES FOR RANDOM SPECIMENS. UR CHLORIDE RANDOM (test code = CLU) 164 mmol/L 110-150 H UR OSMOLALITY [id number] 21:28:00* Test Item Value Reference Range Interpretation Comme nts UR OSMOLALITY RANDOM (test c ode = OSMOU) 475 mOsm/kg 100-1400 N CBC W/O [id number] 20:05:00* Test Item Value Reference Range Interpretation [...] = MPV) 9.5 fL 6.8-11.2 N LACTIC [id number] 19:35:00* Test Item Value Reference Range Interpretation Comme nts LACTIC ACID (test code = LACT) 1.0 mmol/L 0.4-2.0 N HCG SERUM [id number] 19:31:00* Test Item Value Reference Range Interpretation Comme nts HCG SERUM QUAL (test code = HCGQL) Negative SCREEN NEG - CT HEAD/BRAIN W/O [id number] 18:59:00 [facility] : 1975 Sex: F Patient Name: BHUMIKA JONES Unit No: [id number] EXAMS: CPT CODE: [id number] CT HEAD/BRAIN W/O CONT [id number] Location: H3 CT head, conducted on 09/17/22 [...] Technologist: MALA Marie(Abner)(CT) CTDI: DLP: Trnscrpt: 09/17/2022 (1859) [email or web address] DENIZ Lugo NAME: RADU JONES [address] PHYS: Valentina [place] [address] : 1975 AGE: 47 SEX: F LOC: [email or web address] 20 PHONE #: [phone] EXAM DATE: 09/17/2022 STATUS: ADM IN FAX #: [phone] RAD #: D/C DT PAGE 1 Signed Report Patient Name: BHUMIKA JONES Unit No: [id number] EXAMS: CPT CODE: [id number] CT HEAD/BRAIN W/O CONT 37930 (Continued) OrigPrint D/T: S: 09/17/2022 (190) DENIZ Lugo NAME: [address] PHYS: Valentina [place] [address] : 1975 AGE: 47 SEX: F LOC: B.ERMED 20 PHONE #: [phone] EXAM DATE: 09/17/2022 STATUS: ADM IN FAX #: [phone] #: D/C DT PAGE 2 Signed ReportURINALYSIS [id number] 16:28:00* Test Item Value Reference Range Interpretation [...] >0 /UL NONE-SQepi DRUGS OF ABUSE SCREEN [id number] 16:28:00* Test Item Value Reference Range Interpretation [...] interpret this result as normal/abnormal. TROP-I HIGH [id number] 16:26:00* Test Item Value Reference Range Interpretation [...] and URLs may vary bymethod. BASIC METABOLIC [id number] 16:25:00* Test Item Value Reference Range Interpretation [...] interpret this result as normal/abnormal. HEPATIC FUNCTION [id number] 16:25:00* Test Item Value Reference Range Interpretation Comme nts TOTAL PROTEIN (test code = PROT) 7.6 G/DL 6.4-8.2 N ALBUMIN (test code = ALB) 3.0 G/DL 3.4-5.0 L BILIRUBIN TOTAL (test code = BILT) 0.29 MG/DL 0.00-1.00 N BILIRUBIN DIRECT (test code = BILD) < 0.10 MG/DL 0.00-0.30 N BILIRUBIN INDIRECT (test cod e = BILIND) CALC RADHA MG/DL 0.2-1.3 L SGOT/AST (test code = AST) 22 Unit/L 15-37 N SGPT/ALT (test code = ALT) 14 Unit/L 12-78 N ALKALINE PHOSPHATASE TOTAL (test code = ALKP) 67 Unit/L 45-117 N CREATINE KINASE (CK)2022-09-17 16:25:00* Test Item Value Reference Range Interpretation Comme nts CREATINE KINASE (CK) (test c ode = CK) 92 Unit/L 26-192 N [id number] 16:25:00* Test Item Value Reference Range Interpretation Comme nts LIPASE (test code = LIP) 57 Unit/L 114-286 L - CT HEAD/BRAIN W/O [id number] 00:32:00 [facility] : 1975 Sex: F Patient Name: BHUMIKA JONES Unit No: [id number] EXAMS: CPT CODE: [id number] CT HEAD/BRAIN W/O CONT 14995 EXAM: - CT HEAD/BRAIN W/O CONT LOCATION: [...] Technologist: Terry August CTDI: DLP: Trnscrpt: 09/17/2022 (003) [email or web address] DENIZ Lugo NAME: [address] PHYS: YASMIN - [place] [address] : 1975 AGE: 47 SEX: F LOC: MARCOS PHONE #: [phone] EXAM DATE: 09/16/2022 STATUS: REG ER FAX #: [phone] RAD #: D/C DT PAGE 1 Signed Report Patient Name: BHUMIKA JONES Unit No: [id number] EXAMS: CPT CODE: [id number] CT HEAD/BRAIN W/O CONT 73577 (Continued) Orig Print D/T: S: 09/17/2022 (0035) DENIZ Lugo NAME: [address] PHYS: YASMIN - [place] [address] : 1975 AGE: 47 SEX: F LOC: GregorioERS PHONE #: [phone] EXAM DATE: 023 STATUS: REG ER FAX #: [phone] RAD #: D/C DT PAGE 2 Signed ReportTROP-I HIGH [id number] 00:13:00* Test Item Value Reference Range Interpretation [...] and URLs may vary bymethod. COMPREHENSIVE METABOLIC [id number] 00:11:00* Test Item Value Reference Range Interpretation [...] interpret this result as normal/abnormal. CBC W/AUTO [id number] 23:59:00* Test Item Value Reference Range Interpretation [...] K/mm3 0.0-0.05 N - XR CHEST 1 [id number] 23:34:00 [facility] : 1975 Sex: [place]: E St: PRE -- Patient Name: BHUMIKA JONES Unit No: [id number] EXAMS: CPT CODE: [id number] XR CHEST 1 V 12411 EXAMINATION: - XR CHEST 1 V CLINICAL [...] By: [email or web address] Orig Print D/T: S: 09/16/2022 (4808) DENIZ Lugo NAME: BHUMIKA JONES [address] [place] [address] PHYS: [email or web address] - Asim Jack MD, [place] [address] : 1975 AGE: 47 SEX: F LOC: MARCOS PHONE #: [phone] EXAM DATE: 09/16/2022 STATUS: PRE ER FAX #: [phone] RAD NO: DC Dt: PAGE 1 Signed ReportCARBAMAZEPINE (TEGRETOL) 2022-09-15 06:12:00* Test Item Value Reference Range Interpretation Comme nts CARBAMAZEPINE (TEGRETOL) (test code = CARB) 1.5 ug/mL 4.0-12.0 L In conjunction w ith other antiepileptic drugs Therapeutic 4.0 - 8.0 Toxicity 9.0 - 12.0 Carbamazepine alone Therapeutic 8.0 - 12.0 Detection Limit = 2.0 <2.0 indicates None DetectedPerformed At: [facility] [address] [id number] Michael Reeves MD Ph:[phone] VALPROIC ACID (DEPAKENE)2022-09-15 06:12:00* Test Item Value Reference Range Interpretation Comme nts VALPROIC ACID (DEPAKENE) (te st code = VALP) 80.6 mcG/ML 50.0-100.0 N COMPREHENSIVE METABOLIC [id number] 06:00:00* Test Item Value Reference Range Interpretation [...] BILIRUBIN INDIRECT (test code = BILIND) CALC RADHA MG/DL 0.2-1.3 L SGOT/AST (test code = [...] interpret this result as normal/abnormal. CBC W/AUTO [id number] 05:37:00* Test Item Value Reference Range Interpretation [...] NRBC#) 0.00 K/mm3 0.0-0.05 N GLUCOSE BEDSIDE [id number] 20:03:00* Test Item Value Reference Range Interpretation Comme nts GLUCOSE BEDSIDE TESTING (karen t code = GLUBED) 117 MG/DL 70-119 N DRUGS OF ABUSE SCREEN [id number] 11:42:00* Test Item Value Reference Range Interpretation [...] result as normal/abnormal. - CT HEAD/BRAIN W/O [id number] 11:37:00 [facility] : 1975 Sex: FPatient Name: BHUMIKA JONES Unit No: [id number] EXAMS: CPT CODE: [id number] CT HEAD/BRAIN W/OCONT 41042 EXAMINATION: - CT HEAD/BRAIN W/O CONT COMPARISON: None HISTORY: Seizure LOCATION CODE: C3 TECHNIQUE: CT of the Brain without contrast. Axial non contrast images of the brain were obtainedfrom the skull base to the vertex which [...] MD; Jim Jaimes MD Dictated Date/Time: 09/14/2022 (0016) Technologist: ASUNCION CASTELLANO CTDI: DLP: Trnscrpt: 09/14/2022 (6663) [email or web address] DENIZ Lugo NAME: BHUMIKA JONES [facility] PHYS: Vladimir Menchaca MD [address] [place] [address] : 1975 AGE: 47 SEX: RAFI BUTT [facility] LOC: NEHA 10 PHONE #: [phone] EXAM DATE: 09/14/2022 STATUS: ADM IN FAX #: [phone] RAD #: D/C DT PAGE 1 Signed Report Patient Name: BHUMIKA JONES Unit No: [id number] EXAMS: CPT CODE: [id number] CT HEAD/BRAIN W/O CONT 73031 (Continued) Orig Print D/T: S: 09/14/2022 (4060) DENIZ Lugo NAME: BHUMIKA JONES [facility] PHYS: Vladimir Menchaca MD [address] [place] [address] : 1975 AGE: 47 SEX: RAFI BUTT [facility] LOC: NEHA 10 PHONE #: [phone] EXAM DATE: 09/14/2022 STATUS: ADM IN FAX #: [phone] RAD #: D/C DT PAGE 2 Signed ReportPT AND [id number] 06:51:00* Test Item Value Reference Range Interpretation [...] AVOIDED DUE TO POSSIBLE HEPARINCONTAMINATION HCG SERUM [id number] 06:51:00* Test Item Value Reference Range Interpretation [...] CK) 268 Unit/L 26-192 H CBC W/AUTO [id number] 03:43:00* Test Item Value Reference Range Interpretation [...] = NRBC#) 0.00 K/mm3 0.0-0.05 N URINALYSIS [id number] 03:41:00* Test Item Value Reference Range Interpretation [...] RARE /LPF NONE - XR CHEST 2 [id number] 02:06:00 [facility] : 1975 Sex: F FAX: Suleman Carvalho APRNNP [phone] [place]: [address]: REG Patient Name: BHUMIKA JONES Unit No: [id number] EXAMS: CPT CODE: [id number] XR CHEST 2 V 25023 EXAM: - XR CHEST 2 V HISTORY: [...] Suleman Carvalho Dictated Date/Time: 09/14/2022 (020)Technologist: SULEMAN DYER ARRT (R) Transcribed Date/Time: 09/14/2022 (020) By: [email or web address] Orig Print D/T: S: 09/14/2022 (020) DENZI Jasper NAME: [address] PHYS: Suleman [place], [place] [address] : 1975 AGE: 47 SEX: F LOC: B.ERS PHONE #: [phone] EXAM DATE: 09/14/2022 STATUS: REG ER FAX #: [phone] RAD NO: DC Dt: PAGE 1 Signed ReportCOMPREHENSIVE METABOLIC [id number] 12:49:00* Test Item Value Reference Range Interpretation [...] used to interpret this result as normal/abnormal. GDPUWLWQY9066-69-44 12:49:00* Test Item Value Reference Range Interpretation Comme nts MAGNESIUM (test code = MAG) 1.7 MG/DL 1.6-2.6 N CBC W/AUTO [id number] 12:36:00* Test Item Value Reference Range Interpretation [...] 0.0-0.05 N PENDING RECEIPT OF SPECIMEN PER B.LAB.KT AT 09/13/22 1143URINALYSIS COMPLETE 2022-09-13 12:22:00* Test [...] RARE /LPF NONE DRUGS OF ABUSE SCREEN [id number] 00:33:00* Test Item Value Reference Range Interpretation [...] 300 ng/mL UA RFLX MICR CULT IF [id number] 00:30:00* Test Item Value Reference Range Interpretation [...] culture: Suprapubic PainSpecimen Description: CLEAN CATCHBASIC METABOLIC [id number] 00:18:00* Test Item Value Reference Range Interpretation [...] 8.9 mg/dl 8.0-10.5 N HEPATIC FUNCTION PANEL [id number] 00:18:00* Test Item Value Reference Range Interpretation [...] ALKP) 113 Units/L 50.0-136.0 N HCG SERUM [id number] 00:18:00* Test Item Value Reference Range Interpretation Comme nts HCG SERUM QUAL (test code = HCGQL) NEGATIVE NEGATIVE [id number] 00:18:00* Test Item Value Reference Range Interpretation Comme nts ALCOHOL (test code = ALC) 0.00 gm/dL 0.00-0.00 N ETHYL ALCOHOL VA LUES - INTERPRETATION: 0.050 GM/DL - NOT INTOXICATED 0.100 GM/DL - INTOXICATED 0.350-0.450 GM/DL - SEVERELY INTOXICATED 0.550 GM/DL- FATAL INTOXICATION Coronavirus 2019 nCoV Hrtzirs2099-77-41 00:09:00* Test Item Value Reference Range Interpretation Comme nts Coronavirus 2019 nCoV Bedside (test code = [id number]) Negative NEGATIVE Negative results should be treated as presumptive and ifinconsistent with clinical signs and symptoms, or necessaryfor patient management, should be tested with an alternativemolecular assay. Negative results do not preclude LDGM-ZoI-8iawynqfsf and should not be used as the sole basis forpatient management decisions. Negative results should beconsidered in the context of a patient's recent exposures,history, presence of clinical signs and symptoms consistentwith COVID-19. CBC W/AUTO [id number] 23:58:00* Test Item Value Reference Range Interpretation [...] X10 3uL 0.00-0.01 N COMP. METABOLIC PANEL (61048)2022-09-07 02:12:41* Test Item Value Reference Range Interpretation Comme nts NA (test code = 7796196425) 133 mmol/L 135-145 L K (test code = 9099504003) 4.4 mmol/L 3.5-5.0 CL (test code = 0749759319) 102 mmol/L 98-108 CO2 TOTAL (test code = 3793607656) 25 mmol/L 23-31 AGAP (test code = 8582773758) 6 2-16 BUN (test code = 0618127440) 22 mg/dL 7-23 GLUCOSE (test code = 1423534298) 97 mg/dL 70-110 CREATININE (test code = 0790514047) 0.40 mg/dL 0.50-1.04 L TOTAL BILI (test code = 6348223283) 0.3 mg/dL 0.1-1.1 CALCIUM (test code = 2011088375) 8.9 mg/dL 8.6-10.6 T PROTEIN (test code = 8910204857) 7.7 g/dL 6.3-8.2 ALBUMIN (test code = 3188854002) 4.0 g/dL 3.5-5.0 ALK PHOS (test code = 6160234994) 104 U/L 34-122 ALTv (test code = 1742-6) 15 U/L 5-35 AST(SGOT) (test code = 3435609640) 22 U/L 13-40 eGFR (test code = 8256631585) 170.4 mL/min/1.73m2 HANNAH (test code = HANNAH) [...] imaging tests). Lab Interpretation (test code = 36217-0) Abnormal [facility] WITH [id number] 02:01:20* Test Item Value Reference Range Interpretation Comme nts WBC (test code = 6690-2) 6.17 See_Comment [Automated [employer]] The system which generated this result transmitted reference range: 4.30 - 11.10 10*3/?L. The reference range was not used to interpret this result as normal/abnormal. RBC (test code = 789-8) 3.73 See_Comment L [Automated [employer]] The system which generated this result transmitted [...] 32.9 g/dL 31.6-35.1 RDW-SD (test code = 64827-8) 48.1 fL 39.0-49.9 RDW-CV (test code = 788-0) 14.7 % 12.0-15.5 PLT (test code = 777-3) 272 See_Comment [Automated messa ge] The system which generated this result transmitted reference range: 166 - 358 10*3/?L. The reference range was not used to interpret this result as normal/abnormal. MPV (test code = 39023-2) 9.6 fL 9.5-12.9 NRBC/100 WBC (test code = 6305781850) 0.0 See_Comment [Automated [employer] ssage] The system which generated this result transmitted reference range: 0.0 - 10.0 /100 WBCs. The reference range was not used to interpret this result as normal/abnormal. NRBC x10^3 (test code = 9643701637) See_Comment [Automated [employer]] The system which generated this result transmitted reference range: 10*3/?L. The reference range was not used to interpret this result as normal/abnormal. GRAN MAT (NEUT) % (test code = 770-8) 42.2 % IMM GRAN % (test code = 5234166701) 0.20 % LYMPH % (test code = 736-9) 38.2 % MONO % (test code = 5905-5) 12.6 % EOS % (test code = 713-8) 5.8 % BASO % (test code = 706-2) 1.0 % GRAN MAT x10^3(ANC) (test code = 5697733399) 2.60 10*3/uL 1.88-7.09 IMM GRAN x10^3 (test code = 9142078583) 0.00-0.06 LYMPH x10^3 (test code = 731-0) 2.36 10*3/uL 1.32-3.29 MONO x10^3 (test code = 742-7) 0.78 10*3/uL 0.33-0.92 EOS x10^3 (test code = 711-2) 0.36 10*3/uL 0.03-0.39 BASO x10^3 (test code = 704-7) 0.06 10*3/uL 0.01-0.07 Lab Interpretation (test code = 88898-6) [facility]OVID[facility] by RT-PCR (HIGH RISK) 2020-08-19 00:00:00* Test Item Value Reference Range Interpretation Comme nts SARS-CoV-2 INTERPRETATION (t est code = 08599) NEGATIVE SOURCE (test code = 31435) NOT SPECIFIED Henry Quiles UivoejWJRK-NmI-8 (COVID-19) by RT-PCR (HIGH RISK)2020-08-19 00:00:00* Test Item Value Reference Range Interpretation Comme nts SARS-CoV-2 INTERPRETATION (t est code = 18178) NEGATIVE SOURCE (test code = 80703) NOT SPECIFIED Henry Quiles AustinHPV HIGH RISK WITH GENOTYPE, [id number] 00:00:00* Test Item Value Reference Range Interpretation Comme nts HPV HIGH RISK INTERP (test c ode = 62046) NEGATIVE HPV 16 (test code = 63556) NEGATIVE HPV 18 (test code = 73192) NEGATIVE HPV, HR, OTHER GENOTYPES (te st code = 33885) NEGATIVE Henry ContrerasPAP TEST, THINPREP, [id number] 00:00:00* Test Item Value Reference Range Interpretation Comme nts SOURCE: (test code = 8001) Cervical/Endocervical SLIDES: (test code = 8011) 1 LMP: (test code = 8021) 06/2017 SPECIMEN ADEQUACY: (test code = 99860) (NOTE) INTERPRETATION: (test code = 52036) NILM/NO EPITH. ABNORMALITY;SEE BELOW CLIENT MANAGER: (test code = 8101) KANA Hamlin(ASCP) IAC LOCATION: (test code = 46555) (NOTE) CPT: (test code = 8140) (NOTE) Henry ContrerasHPV HIGH RISK WITH GENOTYPE, [id number] 00:00:00* Test Item Value Reference Range Interpretation Comme nts HPV HIGH RISK INTERP (test c ode = 11147) NEGATIVE HPV 16 (test code = 95896) NEGATIVE HPV 18 (test code = 88775) NEGATIVE HPV, HR, OTHER GENOTYPES (te st code = 02647) NEGATIVE Henry ContrerasPAP TEST, THINPREP, [id number] 00:00:00* Test Item Value Reference Range Interpretation Comme nts SOURCE: (test code = 8001) Cervical/Endocervical SLIDES: (test code = 8011) 1 LMP: (test code = 8021) 06/2017 SPECIMEN ADEQUACY: (test code = 58619) (NOTE) INTERPRETATION: (test code = 44319) NILM/NO EPITH. ABNORMALITY;SEE BELOW CLIENT MANAGER: (test code = 8101) KANA Hamlin(ASCP) IAC LOCATION: (test code = 45280) (NOTE) CPT: (test code = 8140) (NOTE) Henry ContrerasCT HEAD WO [id number] 22:34:12Impression: 1. ?No acute intracranial process. 2. [...] patient. Please correlate with history and physicalexamination.[facility] CenterXR CERVICAL SPINE 2 [id number] 22:29:40No acute osseous abnormality. Preliminary Report Dictated [...] this study and agree with theabove report.[facility] CenterCBC WITH FTCJTMUHFQOK5512-91-44 21:46:00* Test Item Value Reference Range Interpretation [...] 32.2 g/dL 31.6-35.1 RDW-SD (test code = 13576-7) 45.1 fL 39-49.9 RDW-CV (test code = 788-0) 14.6 % 12-15.5 PLT (test code = 777-3) See_Comment L [Automated messa ge] The system which generated this result transmitted reference range: 166 - 358 10*3/?L. The reference range was not used to interpret this result as normal/abnormal. MPV (test code = 09761-7) 9.0 fL 9.5-12.9 L NRBC/100 WBC (test code = 3512833344) See_Comment [Automated me ssage] The system which generated this result transmitted reference range: 0.0 - 10.0 /100 WBCs. The reference range was not used to interpret this result as normal/abnormal. NRBC x10^3 (test code = 3369888295) <0.01 See_Comment [Automated messa ge] The system which generated this result transmitted reference range: 10*3/?L. The reference range was not used to interpret this result as normal/abnormal. GRAN MAT (NEUT) % (test code = 770-8) 51.3 % IMM GRAN % (test code = 2648797933) 0.40 % LYMPH % (test code = 736-9) 24.4 % MONO % (test code = 5905-5) 23.1 % EOS % (test code = 713-8) 0.4 % BASO % (test code = 706-2) 0.4 % GRAN MAT x10^3(ANC) (test code = 7613267262) 2.48 10*3/uL 1.88-7.09 IMM GRAN x10^3 (test code = 7787814911) <0.03 0-0.06 LYMPH x10^3 (test code = 731-0) 1.18 10*3/uL 1.32-3.29 L MONO x10^3 (test code = 742-7) 1.12 10*3/uL 0.33-0.92 H EOS x10^3 (test code = 711-2) <0.03 0.03-0.39 L BASO x10^3 (test code = 704-7) <0.03 0.01-0.07 Lab Interpretation (test code = 00068-9) [facility]normal [facility] C[facility] 2 [id number] 03:28:03No acute osseous abnormality. Preliminary Report Dictated [...] study and agree withthe above report. [facility] CenterValproic Acid Tbhbc3643-43-31 08:03:22* Test Item Value Reference Range Interpretation Comme nts Valproic Acid Level (test co de = Valproic Acid Level) 57.6 ug/mL(g) 50.0-100.0 Hemoglobin [id number] 09:36:00* Test Item Value Reference Range Interpretation Comme nts Hemoglobin A1c (test code = Hemoglobin A1c) 5.0 % 4.8-5.9 Non Diabetic 4.8-5.9%Diabetic <7.0% CT Shoulder w/o Contrast Dfwb7012-64-14 16:49:13Patient: BHUMIKA JONES Date/Time01/09/2019 16:14 CDTReason for [...] Adam FSigned (Electronic Signature): 01/09/2019 4:49 pmRPR Jssrzpesgql8141-59-52 21:33:20* Test Item Value Reference Range Interpretation [...] 04-23-2020 N XR Shoulder Complete 2+ Views Svkn8270-08-74 15:41:25Patient: BHUMIKA JONES Date/Time01/07/2019 15:25 CDTReason for [...] CSigned (Electronic Signature): 01/07/2019 3:41 pmThyroid Stimulating Acxqiim5501-78-75 03:07:04* Test Item Value Reference Range Interpretation Comme nts TSH (test code = TSH) 9.650 mIU/mL 0.270-4.200 H Lipid Edpeo1089-22-77 03:07:03* Test Item Value Reference Range Interpretation Comme nts Cholesterol Total (test code = Cholesterol Total) 199 mg/dL 0-200 RISK OF HEART DISEASEPublished by [employer] Heart Association Analyte Optimal Borderline Increased RiskCHOL [...] is LDL/HDL Ratio=LDL Calc/HDL Chol HCG Qualitative Yqezi2684-46-98 02:33:13* Test Item Value Reference Range Interpretation Comme nts HCG, Serum Qual (test code = HCG, Serum Qual) Negative Lot # (test code = Lot #) [id number] N Expiration Dt (test code = Expiration Dt) 2020-04-23 N Neg Control (test code = Neg Control) Negative Pos Control (test code = Pos Control) Positive Internal QC (test code = Int ernal QC) Acceptable Drugs of Abuse Urine [id number] 18:58:11* Test Item Value Reference Range Interpretation [...] = Cannabinoid Screen Ur) Negative Negative Alcohol Tgdud3618-46-91 18:47:34* Test Item Value Reference Range Interpretation Comme nts Ethanol Level (test code = Ethanol Level) <0.00 g/dL 0.00-0.01 Intoxicated 0.08 0 g/dL or more Ethanol Inst (test code = Ethanol Inst) <0 N Comprehensive Metabolic Laqnn4148-64-91 18:47:33* Test Item Value Reference Range Interpretation [...] A/G Ratio) 1.0 ratio N Comprehensive Metabolic Xcvjn8701-93-50 18:47:33* Test Item Value Reference Range Interpretation [...] is not provided, and the patient is -Israeli, multiply by 1.212. If sex is not [...] the National Kidney Foundation, http://nkdep.nih.gov Comprehensive Metabolic Xpmbm5876-35-49 18:47:33* Test Item Value Reference Range Interpretation [...] is not provided, and the patient is -Israeli, multiply by 1.212. If sex is not [...] is not provided, and the patient is -Israeli, multiply by 1.212. If sex is not [...] Kidney Foundation, http://nkdep.nih.gov Complete Blood Count with Lgfownpuhowj5169-64-29 18:15:23* Test Item Value Reference Range Interpretation [...] code = IPF) 0 % N Automated Rbyzlnnybbsm4780-45-35 18:15:23* Test Item Value Reference Range Interpretation Comme nts Neutro Auto (test code = Sunny tro Auto) 42.1 % 36.0-70.0 Lymph Auto (test code = Lymph Auto) 40.0 % 12.0-44.0 [place] Auto (test code = [place] Auto) 12.2 % 0.0-11.0 H Eos, Auto (test code = Eos, Auto) 4.9 % 0.0-7.0 Basophil Auto (test code = B asophil Auto) 0.6 % 0.0-2.0 Neutro Absolute (test code = Neutro Absolute) 2.2 x10 1.6-7.4 Lymph Absolute (test code = Lymph Absolute) 2.06 x10 .50-4.60 [place] Absolute (test code = M richa Absolute) .63 x10 .00-1.20 Eos Absolute (test code = Eo s Absolute) 0.25 x10 0.00-0.74 Baso Absolute (test code = B aso Absolute) 0.03 x10 0.00-0.21 IG Brnnd2195-73-92 18:15:23* Test Item Value Reference Range Interpretation Comme nts IG (test code = IG) 0.2 % 0.0-5.0 IG Abs (test code = IG Abs) 0 x10 N VALPROIC [id number] 00:00:00* Test Item Value Reference Range Interpretation Comme nts VALPROIC ACID (test code = 3025) 69.8 UG/ML Henry ContrerasVALPROIC TYHB0648-03-94 00:00:00* Test Item Value Reference Range Interpretation Comme nts VALPROIC ACID (test code = 3025) 69.8 UG/ML Henry ContrerasURINE CULTURE, NO [id number] 00:00:00* Test Item Value Reference Range Interpretation Comme nts URINE CULTURE, NO SENS (test code = 28166) SPECIMEN NUMBER: [id number] Henry ContrerasURINE CULTURE, NO [id number] 00:00:00* Test Item Value Reference Range Interpretation Comme nts URINE CULTURE, NO SENS (test code = 35460) SPECIMEN NUMBER: [id number] Henry ContrerasIRON BINDING CAPACITY AND IRON AND % TUTYIRXLAM3764-87-77 00:00:00* Test Item Value Reference Range Interpretation Comme nts IRON, SERUM (test code = 2222) 42 UG/DL UNSATURATED IBC (test code = 90287) 279 UG/DL CALC TOTAL IBC (test code = 2077) 321 UG/DL CALC % IRON SAT (test code = 2079) 13 % Henry ContrerasLvvpjvCQMALNBH6386-33-43 00:00:00* Test Item Value Reference Range Interpretation Comme nts FERRITIN (test code = 2075) 15 NG/ML Henry ContrerasOsayipCXRUQKTLBAN8877-50-79 00:00:00* Test Item Value Reference Range Interpretation Comme nts TRANSFERRIN (test code = 4936) 269 MG/DL Henry ContrerasFOLIC [id number] 00:00:00* Test Item Value Reference Range Interpretation Comme nts FOLIC ACID (test code = 2695) 5.4 UG/L Henry ContrerasIRON BINDING CAPACITY AND IRON AND % NZJHCDZQML0517-17-12 00:00:00* Test Item Value Reference Range Interpretation Comme nts IRON, SERUM (test code = 2222) 42 UG/DL UNSATURATED IBC (test code = 78242) 279 UG/DL CALC TOTAL IBC (test code = 2077) 321 UG/DL CALC % IRON SAT (test code = 2079) 13 % Henry ContrerasVismfoDXAXJWTL4451-22-05 00:00:00* Test Item Value Reference Range Interpretation Comme nts FERRITIN (test code = 2075) 15 NG/ML Henry ContrerasGwjleuFMWVEALQMLQ6023-37-47 00:00:00* Test Item Value Reference Range Interpretation Comme nts TRANSFERRIN (test code = 4936) 269 MG/DL Henry Quiles AustinFOLIC [id number] 00:00:00* Test Item Value Reference Range Interpretation Comme nts FOLIC ACID (test code = 2695) 5.4 UG/L Henry ContrerasCULTURE, URINE [ADDED]2018-06-12 00:00:00* Test Item Value Reference Range Interpretation Comme nts CULTURE, URINE (test code = 85505) SPECIMEN NUMBER: [id number] Henry ContrerasCULTURE, URINE [ADDED]2018-06-12 00:00:00* Test Item Value Reference Range Interpretation Comme nts CULTURE, URINE (test code = 71418) SPECIMEN NUMBER: [id number] Henry ContrerasCBC W/AUTO [id number] 00:00:00* Test Item Value Reference Range Interpretation [...] = 1015) 184 K/UL Henry ContrerasCOMPREHENSIVE METABOLIC [id number] 00:00:00* Test Item Value Reference Range Interpretation Comme nts GLUCOSE (test code = 2217) 86 MG/DL BUN (test code = 2208) 16 MG/DL CREATININE (test code = 2214) 0.45 MG/DL eGFR AMER. (test cod e = 48235) 141 ML/MIN/1.73 eGFR NON- AMER. (test code = 50853) 122 ML/MIN/1.73 CALC BUN/CREAT (test code = [...] (test code = 2219) 17 U/L Henry Quiles BenVALPROIC [id number] 00:00:00* Test Item Value Reference Range Interpretation Comme nts VALPROIC ACID (test code = 3025) 100.9 UG/ML Henry Quiles BenCBC W/AUTO GWLS2025-07-81 00:00:00* Test Item Value Reference Range Interpretation [...] 1015) 184 K/UL Henry Quiles BenCOMPREHENSIVE METABOLIC ZJVTB9725-84-50 00:00:00* Test Item Value Reference Range Interpretation Comme nts GLUCOSE (test code = 2217) 86 MG/DL BUN (test code = 2208) 16 MG/DL CREATININE (test code = 2214) 0.45 MG/DL eGFR AMER. (test cod e = 79695) 141 ML/MIN/1.73 eGFR NON- AMER. (test code = 77468) 122 ML/MIN/1.73 CALC BUN/CREAT (test code = [...] (test code = 2219) 17 U/L Henry Quiles BenVALPROIC [id number] 00:00:00* Test Item Value Reference Range Interpretation Comme nts VALPROIC ACID (test code = 3025) 100.9 UG/ML Henry Quiles BenPAP TEST, THINPREP, [id number] 00:00:00* Test Item Value Reference Range Interpretation Comme nts SOURCE: (test code = 8001) Cervical/Endocervical SLIDES: (test code = 8011) 1 LMP: (test code = 8021) 03/2017 SPECIMEN ADEQUACY: (test code = 97286) (NOTE) INTERPRETATION: (test code = 74551) NO EPITHELIAL ABNORMALITY SEE BELOW CLIENT MANAGER: (test code = 8101) KANA Merida(ASCP)IAC LOCATION: (test code = 66523) (NOTE) CPT: (test code = 8140) (NOTE) Henry ContrerasHPV HIGH RISK WITH GENOTYPE, [id number] 00:00:00* Test Item Value Reference Range Interpretation Comme nts HPV HIGH RISK INTERP (test c ode = 53543) NEGATIVE HPV 16 (test code = 68241) NEGATIVE HPV 18 (test code = 14123) NEGATIVE HPV, HR, OTHER GENOTYPES (te st code = 31190) NEGATIVE Henry ContrerasPAP TEST, THINPREP, [id number] 00:00:00* Test Item Value Reference Range Interpretation Comme nts SOURCE: (test code = 8001) Cervical/Endocervical SLIDES: (test code = 8011) 1 LMP: (test code = 8021) 03/2017 SPECIMEN ADEQUACY: (test code = 45781) (NOTE) INTERPRETATION: (test code = 54927) NO EPITHELIAL ABNORMALITY SEE BELOW CLIENT MANAGER: (test code = 8101) KANA Merida(ASCP)IAC LOCATION: (test code = 98915) (NOTE) CPT: (test code = 8140) (NOTE) Henry ContrerasHPV HIGH RISK WITH GENOTYPE, [id number] 00:00:00* Test Item Value Reference Range Interpretation Comme nts HPV HIGH RISK INTERP (test c ode = 38622) NEGATIVE HPV 16 (test code = 84457) NEGATIVE HPV 18 (test code = 92419) NEGATIVE HPV, HR, OTHER GENOTYPES (te st code = 95192) NEGATIVE Henry ContrerasHIV AB/AG COMBO RFLX [id number] 00:00:00* Test Item Value Reference Range Interpretation Comme nts HIV 1/2 4TH GEN, RFLX CONF ( test code = 3514) NON-REACTIVE Henry ContrerasGC AND CHLAMYDIA AMPLIFIED, [id number] 00:00:00* Test Item Value Reference Range Interpretation Comme nts GONORRHEA, TMA (test code = 90938) NEGATIVE CHLAMYDIA, TMA (test code = 35442) NEGATIVE Henry ConrterasGC AND CHLAMYDIA AMPLIFIED, [id number] 00:00:00* Test Item Value Reference Range Interpretation Comme nts GONORRHEA, TMA (test code = 25652) NEGATIVE CHLAMYDIA, TMA (test code = 45737) NEGATIVE Henry ContrerasHIV AB/AG COMBO RFLX [id number] 00:00:00* Test Item Value Reference Range Interpretation Comme shaina HIV 1/2 4TH GEN, RFLX CONF ( test code = 3514) NON-REACTIVE Henry ContrerasLIPID [id number] 00:00:00* Test Item Value Reference Range Interpretation Comme nts CHOLESTEROL (test code = 2210) 186 MG/DL TRIGLYCERIDES (test code = 2232) 131 MG/DL HDL CHOLESTEROL (test code = 2220) 67 MG/DL CALC LDL CHOL (test code = 2237) 93 MG/DL RISK RATIO LDL/HDL (test cod e = 2238) 1.39 RATIO Henry ContrerasCBC W/AUTO [id number] 00:00:00* Test Item Value Reference Range Interpretation [...] code = 1015) 152 K/UL Henry ContrerasHEMOGLOBIN [id number] 00:00:00* Test Item Value Reference Range Interpretation Comme shaina HEMOGLOBIN A1c (test code = 83493) 5.2 % Henry [id number] 00:00:00* Test Item Value Reference Range Interpretation Comme nts TSH (test code = 2821) 2.020 UIU/ML Henry ContrerasCOMPREHENSIVE METABOLIC [id number] 00:00:00* Test Item Value Reference Range Interpretation Comme nts GLUCOSE (test code = 2217) 90 MG/DL BUN (test code = 2208) 21 MG/DL CREATININE (test code = 2214) 0.42 MG/DL eGFR AMER. (test cod e = 04363) 145 ML/MIN/1.73 eGFR NON- AMER. (test code = 88150) 126 ML/MIN/1.73 CALC BUN/CREAT (test code = [...] code = 2219) <5 U/L Henry ContrerasLIPID [id number] 00:00:00* Test Item Value Reference Range Interpretation Comme nts CHOLESTEROL (test code = 2210) 186 MG/DL TRIGLYCERIDES (test code = 2232) 131 MG/DL HDL CHOLESTEROL (test code = 2220) 67 MG/DL CALC LDL CHOL (test code = 2237) 93 MG/DL RISK RATIO LDL/HDL (test cod e = 2238) 1.39 RATIO Henry ContrerasCBC W/AUTO [id number] 00:00:00* Test Item Value Reference Range Interpretation [...] code = 1015) 152 K/UL Henry ContrerasHEMOGLOBIN [id number] 00:00:00* Test Item Value Reference Range Interpretation Comme nts HEMOGLOBIN A1c (test code = 41355) 5.2 % Henry [id number] 00:00:00* Test Item Value Reference Range Interpretation Comme nts TSH (test code = 2821) 2.020 UIU/ML Henry ContrerasCOMPREHENSIVE METABOLIC [id number] 00:00:00* Test Item Value Reference Range Interpretation Comme nts GLUCOSE (test code = 2217) 90 MG/DL BUN (test code = 2208) 21 MG/DL CREATININE (test code = 2214) 0.42 MG/DL eGFR AMER. (test cod e = 85960) 145 ML/MIN/1.73 eGFR NON- AMER. (test code = 54603) 126 ML/MIN/1.73 CALC BUN/CREAT (test code = [...] code = 2219) <5 U/L Henry F Ben Notes Date/Time Note Provider Source PATIENT OPEN ORDERS Code System Description Frequency Occurrences Priority [place] [address]-8 [facility] EKG study ONE TIME 0 Stat November 24, 2023 12:29:00 AM UTC MAGALIE FONTAINE5BNR on November 24, 2023 12:29:00 AM UTC SCHEDULED PROCEDURES Code System Description Status Scheduled Date Updated By Patient scheduled procedure information is not available. [facility] 04:23:47 CARE conventional mortgage underwriter Role on Team Status Start Date End Date Update d By NO PCP Referring normal November 24, 2023 2:17:11 AM UTC November 25, 2023 12:04:00 AM UTC [id number] on November 24, 2023 2:17:11 AM RUST MAGALIE BRAVO Attending normal November 24, 2023 2:17:11 AM UTC November 25, 2023 12:04:00 AM UTC [id number] on November 24, 2023 2:17:11 AM RUST MAGALIE BRAVO Admitting normal November 24, 2023 2:17:11 AM UTC November 25, 2023 12:04:00 AM UTC [id number] on November 24, 2023 2:17:11 AM UT NO PCP PCP normal November 24, 2023 2:17:11 AM UTC November 25, 2023 12:04:00 AM UTC MYH5EYR on November 24, 2023 2:17:11 AM IAC [facility]2024-06-03 00:00:00 Henry EttaJorden Contreras [facility]2024-06-02 19:05:13 PATIENT OPEN ORDERS Code System Description Frequency Occurrences Priority [place] [address] [facility] ONE [facility] 0 Stat November 24, 2023 12:29:00 AM UT MAGALIE FONTAINE5BNR on November 24, 2023 12:29:00 AM UTC SCHEDULED PROCEDURES Code System Description Status Scheduled Date Updated By Patient scheduled procedure information is not available. 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 Role on Team Status Start Date End Date Update d By NO PCP Referring normal November 24, 2023 2:17:11 AM RUST November 25, 2023 12:04:00 AM RUST [id number] on November 24, 2023 2:17:11 AM RUST MAGALIE BRAVO Attending normal November 24, 2023 2:17:11 AM RUST November 25, 2023 12:04:00 AM RUST [id number] on November 24, 2023 2:17:11 AM RUST MAGALIE BRAVO Admitting normal November 24, 2023 2:17:11 AM RUST November 25, 2023 12:04:00 AM RUST [id number] on November 24, 2023 2:17:11 AM RUST NO PCP PCP normal November 24, 2023 2:17:11 AM RUST November 25, 2023 12:04:00 AM RUST [id number] on November 24, 2023 2:17:11 AM [facility]2024-06-01 21:59:[address] [address] DIAGNOSTIC IMAGING REPORT Patient Name: ROBERT, CONCEPTION Date of Service: 11-23-2023 Age: 48 Sex: F Order #: [id number] Room: [facility] : 1975 X-Ray Number: [id number] Hospital Number: [id number] Admitting Physician: LAWRENCE MEJIAS Ordering Physician: LAWRENCE [...] authenticated by ANGIE PHAM 2023-11-23 21:59:03MALA ADAMS [id number] 21:53:[address] [place] [address] DIAGNOSTIC IMAGING REPORT Patient Name: JONATHAN JONES Date of Service: 11-23-2023 Age: 48 Sex: F Order #: [id number] Room: [facility] : 1975 X-Ray Number: [id number] Hospital Number: [id number] Admitting Physician: LAWRENCE MEJIAS Ordering Physician: LAWRENCE [...] MCKEON 2023-11-23 21:53:03ALON DEL RIO 2023-10-25 00:00:00 Henry Goldberg [facility]2024-04-10 09:45:21 We are unable to release any pt information with out prior pt permission. However, Risperdal is not generally managed by neurology and would be best managed by psychiatrist. [facility]2024-04-09 16:15:28 Copied from CRM #[id number]. Topic: Clinical - Order >> Oct 01, 2023 4:13 PM Patient Event Sales Representative wrote: [facility] is calling regarding medication risperdal they were givng her 3mg and stating had dropped it to 1mg trying to confirm change Call [phone] [facility]yler Villeda [facility] [id number] 12:29:00 [facility] ([facility] Hospitalist Discharge Summary REPORT#:[id number] REPORT STATUS: Signed DATE:10/11/22 TIME: 1229 PATIENT: BHUMIKA JONES UNIT #: [id number] ROOM/BED: [place] [address] : [birth year] AGE: 47 SEX: F ATTEND: [...] patient this morning with the help of supervisor finishing and she said that he lives with [...] refill, normal range of motion, no edema Neuro/GATE CLERK: altered mental status, alert Discharge Instructions PCP Discharge to: Home/Self Care Additional Discharge Routines: PCP Follow-Up Diet: Resume Home Diet/Feeds Activity: As Tolerated Follow-up Appointments PCP follow-up: PCP: No Primary or Family Physician PCP follow up timeframe: In 6 days at 1230 [facility] #:[id number] END OF [id number] 17:27:00 [facility] ([facility]) Electroencephalogram-EEG REPORT#:[id number] REPORT STATUS: Signed DATE:09/18/22 TIME: 1726 PATIENT: BHUMIKA JONES UNIT #: [id number] ROOM/BED: [place] [address] : 74 AGE: 47 SEX: F ATTEND: [...] 09/18 09 CAN (KEPPRA IV) IV 10/18 09 Sodium [...] open eyes (commands were obtained using a infant and toddler teacher) with opening the eyes the patient would [...] with the patient mentioned. at 1736 RPT #:[id number] END OF [id number] 14:24:00 [facility] ([facility] Neurology Consultation Note REPORT#:[id number] REPORT STATUS: Signed DATE:09/18/22 TIME: 1424 PATIENT: BHUMIKA JONES UNIT #: [id number] ROOM/BED: [place] [address] : [birth year] AGE: 47 SEX: F ATTEND: Marly Mendenhall MD ADM AUTHOR: Nelia Parker MD * ALL edits or amendments must be made on the electronic/computer document * See Addendum History of Present Illness HPI Requesting clinician: see consult order Reason for consult: "AMS" Chief complaint: wanting to go home for her family HPI: 47-year-old female Djib[place]ian speaking only who was brought into the [...] and the patient was sent to a skilled nursing. Reportedly per the patient she did not like the skilled nursing and does not like the food there [...] seizures prior to her being in the skilled nursing. Per the patient she get upset that [...] available to confirm the history and the skilled nursing location is unknown to contact someone who [...] MG 09/18 09/18 09/17 09/17 0553 0553 [id number] [id number] Chemistry Hemoglobin A1c (4.5 - 5.6 % [...] Index/DL) 1 NORMAL <10 MG 09/17 09/17 1513 1515 Chemistry Sodium (133 - 144 mmol/L) 125.0 [...] Indirect Bilirubin (0.2 - 1.3 MG/DL) CALC RADHA L AST (15 - 37 Unit/L) 22 [...] - 8.0 pH UNITS) 6.5 Ur Specific [place] (1.001 - 1.035 SG) 1.013 Urine Protein [...] from my end currently is needed. at 1502 Addendum 1: 09/18/22 1651 by Nelia Parker MD waiting on family member to confirm or give other parts of the history that might be helpful for her condition and whether had prior seizures in the past or not. at 1652 RPT #:[id number] END OF [id number] 11:44:00 [facility] Hospital[facility] Progress Note REPORT#:[id number] REPORT STATUS: Signed DATE:09/18/22 TIME: 1144 PATIENT: BHUMIKA JONES UNIT #: [id number] ROOM/BED: [place] [address] : 74 AGE: 47 SEX: F ATTEND: [...] patient this morning with the help of supervisor finishing and she said that he lives with [...] refill, normal range of motion, no edema Neuro/GATE CLERK: altered mental status, alert Diagnosis, Assessment Plan [...] afternoon if remains stable at 1147 RPT #:[id number] END OF [id number] 01:06:00 [facility] ([facility]) Hospitalist History Physical REPORT#:[id number] REPORT STATUS: Signed DATE:09/18/22 TIME: 105 PATIENT: BHUMIKA JONES UNIT #: [id number] ROOM/BED: [place] [address] : 74 AGE: 47 SEX: F ATTEND: [...] Indirect Bilirubin (0.2 - 1.3 MG/DL) CALC RADHA L AST (15 - 37 Unit/L) 22 [...] - 8.0 pH UNITS) 6.5 Ur Specific [place] (1.001 - 1.035 SG) 1.013 Urine Protein [...] Impression By: Leonardo - Nati Hunt M.D. Microbiology: 09/17 2157 NASAL: MRSA [...] the exam acquired earlier today. Impression By: [email or web address] Pamela Hunt M.D. 09/18 0700 09/17 2300 09/17 [...] Result Date Time Pulse Ox 99 03/27 2030 B/P 145/90 09/17 2029 B/P Mean 108.5 [...] rhythm Respiratory: decreased breath sounds Abdomen: soft Neuro/GATE CLERK: altered mental status, alert Diagnosis, Assessment Plan [...] by incoming MD thereafter at 0110 RPT #:[id number] END OF [id number] 14:34:00 [facility] ([facility]) EMERGENCY PROVIDER REPORT REPORT#:[id number] REPORT STATUS: Signed DATE:09/17/22 TIME: 1434 PATIENT: BHUMIKA JONES UNIT #: [id number] ROOM/BED: [facility] AGE: 47 SEX: F PCP PHYS: No Primary or Family Physician SERVICE AUTHOR: Valentina Samayoa MD * ALL edits or amendments must be made on the electronic/computer document * HPI-General Illness Free Text HPI Notes Free Text HPI Notes 47-year-old female presents after possible seizure episode at [facility] assessment patient is not fully oriented, and cannot provide history of the events of today when asked multiple times. Additional history limited as the patient is tearful and not fully oriented. I spoke to the patient's sister Lewis Chiang, phone #[phone] by phone, who reports the patient has been missing from home for 8 days. Reports when the patient is medically cleared they can come get the patient. Patient reportedly initially without medications at the [facility] PMH: Seizures, schizophrenia. General Initial Greet Date/Time [...] Prov: 09/13/22 DC: 09/14/22 1500 entry level installation technician correction DIVALPROEX DR (GINA CALLES) 1,000 MG PO DAILY DIVALPROEX DR (GINA CALLES) 1,000 MG PO DAILY #60 TABS Prov: 09/13/22 DC: 09/14/22 1459 entry level installation technician correction Reported Medications DIVALPROEX ER (DEPAKOTE ER) [...] Diagnostics Lab Results Interpretation Results Laboratory Tests 09/17/221518: [Embedded Image Not Available] Laboratory Tests: 09/17 1519 Chemistry Sodium (133 - 144 [...] Indirect Bilirubin (0.2 - 1.3 MG/DL) CALC RADHA L AST (15 - 37 Unit/L) 22 [...] - 8.0 pH UNITS) 6.5 Ur Specific [place] (1.001 - 1.035 SG) 1.013 Urine Protein [...] refill, drowsy, admitted, ultimately discharged back to skilled nursing] -My EKG interpretation: I directly visualized and [...] )( Accepted Date 09/17/22 at 1114 RPT #:[id number] END OF [id number] 00:19:00 [facility] ([facility]) EMERGENCY PROVIDER REPORT REPORT#:[id number] REPORT STATUS: Signed DATE:09/17/22 TIME: 0019 PATIENT: BHUMIKA JONES UNIT #: [id number] ROOM/BED: AGE: 47 SEX: F PCP PHYS: No Primary or Family Physician SERVICE AUTHOR: Asim Jack MD * ALL edits or amendments must be made on the electronic/computer document * HPI-General Illness General Initial Greet Date/Time 09/16/22 4948 Presentation Chief Complaint Anxiety, Not feeling well Free Text HPI Notes Free Text HPI Notes Patient brought in by EMS from local women skilled nursing after increasing anxiety and concern for possible seizure activity. She was recently admitted here at [facility] and worked up for possible [...] Prov: 09/13/22 DC: 09/14/22 1500 entry level installation technician correction DIVALPROJOHANA CALLES (GINA CALLES) 1,000 MG PO DAILY DIVALPROEX (GINA CALLES) 1,000 MG PO DAILY #60 TABS Prov: 09/13/22 DC: 09/14/22 1459 entry level installation technician correction Reported Medications DIVALPROEX ER (DEPAKOTE ER) [...] Considerations Reviewed prior records Results Laboratory Tests 09/16/22 233: [Embedded Image Not Available] Laboratory Tests: 09/16 [...] % (Auto) (14.1 - 45.4 %) 29.6 [place] % (Auto) (2.5 - 11.7 %) 10.8 Eos % (Auto) (0.0 - 6.2 %) 2.9 Baso % (Auto) (0.0 - 2.1 %) 0.7 Gran # (2.0 - 13.7 k/mm3) 3.12 Lymph # (Auto) (0.6 - 3.8 K/mm3) 1.65 [place] # (Auto) (0.11 - 0.59 K/mm3) 0.60 [...] RADIOLOGY - XR CHEST 1 V 09/16 230 [...] Text MDM Notes Patient presents from local skilled nursing with concern for possible seizure activity. I [...] 09/16 2304 DC 09/16 IV 09/16 2305 234 Patient Discharge Departure Vital Signs/Condition Vital Signs [...] 67 09/17 0016 Resp 16 09/17 001 All vital signs available at [...] Instructions Please follow-up with [facility], and neurology. Return if any confusion, headache, stiff neck, fever, vomiting, or any other new concerns. Please take all your medications as instructed Referrals Provider Group: [facility] Follow-Up: 2-3 Days Provider Referral: Nelia Parker MD Follow-Up: 2-3 Days Address: [address] [place] [address] [address] [place] [address] Resource Referral: Savita rOona [facility] Follow-Up: 2-3 Days Address: [address] [place] [address] [place] [address] at 0140 RPT #:[id number] END OF [id number] 12:06:00 [facility] ([facility]) Electroencephalogram-EEG REPORT#:[id number] REPORT STATUS: Signed DATE:09/15/22 TIME: 1206 PATIENT: BHUMIKA JONES UNIT #: [id number] ROOM/BED: [address] : 74 AGE: 47 SEX: F ATTEND: [...] discharges or electrographic seizures recorded. at 1209 [facility] #:[id number] END OF [id number] 12:00:00 [facility] ([facility]) Hospitalist Discharge Summary REPORT#:[id number] REPORT STATUS: Signed DATE:09/15/22 TIME: 1200 PATIENT: BHUMIKA JONES UNIT #: [id number] ROOM/BED: [address] : 74 AGE: 47 SEX: F ATTEND: [...] evaluated for possible seizure episode. She is [place]ib[place]ian-speaking patient only in director of finance was used. Patient denies to have any seizure episodes at home she just ran out of her medications and came to the hospital. Patient otherwise remains hemodynamically stable. However she is too drowsy to be discharged safely back home. I discussed the case with the patient. She wants her medications to be refilled and that she wants to go back to her skilled nursing. I discussed with her about potential seizure episodes in the future use of medications compliance with the medications and further prescriptions. She states that she would management to the skilled nursing. I have requested case management to evaluate [...] initial diagnosis and related differentials with the patient/career services representative including RN. All concerns and questions are answered to the best of my abilities based on the available data.I have initiated the plan of care based on preliminary diagnosis, requested appopriate consultations with labs/imagings. Patient/career services representative verbalizes understanding of the plan of care. [...] timeframe: In 1-2 weeks at 1202 RPT #:[id number] END OF [id number] 16:56:00 [facility]) Neurology Consultation Note REPORT#:[id number] REPORT STATUS: Signed DATE:09/14/22 TIME: 1656 PATIENT: BHUMIKA JONES UNIT #: [id number] ROOM/BED: [address] : 74 AGE: 47 SEX: F [...] evaluated for possible seizure episode. She is [place]ib[place]ian-speaking patient only in director of finance was used. Patient denies to have any [...] (SODIUM CHLORIDE 0.9% 1000 ML) 1,000 ML .[id number] IV Trazodone HCl (DESYREL) 50 MG BEDTIME PRN PRN PO Sodium Chloride (SODIUM CHLORIDE 0.9% 1000 ML) 1,000 ML .[id number] IV Carbamazepine (TEGretol) 400 MG BID PO Divalproex Sodium (DEPAKOTE DR) 1,000 MG BID PO (DC) Acetaminophen (TYLENOL) 650 MG Q6H PRN PRN PO Ondansetron HCl (ZOFRAN) 4 MG Q4H PRN PRN IV Ceftriaxone Sodium (ROCEPHIN) 1 GM Q24H IV (CAN) Lactated Ringer's (LACTATED RINGERS) 1,000 ML .[id number] IV Ceftriaxone Sodium (ROCEPHIN) 1 GM X1ED [...] (0.88 - 1.13 INR Unit) 0.95 PTT (Lyman) (24 - 37.7 SECONDS) 34.6 Laboratory Tests [...] % (Auto) (14.1 - 45.4 %) 33.6 [place] % (Auto) (2.5 - 11.7 %) 13.4 H Eos % (Auto) (0.0 - 6.2 %) 7.4 H Baso % (Auto) (0.0 - 2.1 %) 0.9 Gran # (2.0 - 13.7 k/mm3) 2.61 Lymph # (Auto) (0.6 - 3.8 K/mm3) 1.96 [place] # (Auto) (0.11 - 0.59 K/mm3) 0.78 [...] - 8.0 pH UNITS) 6.0 Ur Specific [place] (1.001 - 1.035 SG) 1.032 Urine Protein [...] deferred to primary team. at 1707 RPT #:[id number] END OF [id number] 14:55:00 [facility] ([facility]) Hospitalist History Physical REPORT#:[id number] REPORT STATUS: Signed DATE:09/14/22 TIME: 1454 PATIENT: BHUMIKA JONES UNIT #: [id number] [place]OM/BED: [place] : 74 AGE: 47 SEX: F ATTEND: [...] evaluated for possible seizure episode. She is [place]ib[place]ian-speaking patient only in director of finance was used. Patient denies to have any [...] % (Auto) (14.1 - 45.4 %) 33.6 [place] % (Auto) (2.5 - 11.7 %) 13.4 H Eos % (Auto) (0.0 - 6.2 %) 7.4 H Baso % (Auto) (0.0 - 2.1 %) 0.9 Gran # (2.0 - 13.7 k/mm3) 2.61 Lymph # (Auto) (0.6 - 3.8 K/mm3) 1.96 [place] # (Auto) (0.11 - 0.59 K/mm3) 0.78 [...] - 8.0 pH UNITS) 6.0 Ur Specific [place] (1.001 - 1.035 SG) 1.032 Urine Protein [...] evaluated for possible seizure episode. She is [place]ib[place]ian-speaking patient only in director of finance was used. Patient denies to have any [...] initial diagnosis and related differentials with the patient/career services representative including RN. All concerns and questions are answered to the best of my abilities based on the available data.I have initiated the plan of care based on preliminary diagnosis, requested appopriate consultations with labs/imagings. Patient/career services representative verbalizes understanding of the plan of care. at 1501 RPT #:[id number] END OF [id number] 04:21:00 [facility] ([facility]) EMERGENCY PROVIDER REPORT REPORT#:[id number] REPORT STATUS: Signed DATE:09/14/22 TIME: 420 PATIENT: BHUMIKA JONES UNIT #: [id number] ROOM/BED: [place] [address] AGE: 47 SEX: F PCP PHYS: No Primary or Family Physician SERVICE AUTHOR: Suleman Carvalho * ALL edits [...] she needs to see a social services manager but is unsure how to arrange that. Was seen here in ER yesterday and was prescribed all her medications but states that she cannot get them and she is concerned she may have another seizure. Reports that she had multiple seizures yesterday. Denies vomiting, diarrhea, cough, congestion, recent illness. General Initial Greet Date/Time 09/13/22 2018 Presentation Chief Complaint __ (needs help) Hx Obtained From Patient, Occupational Health Coordinator Review of Systems ROS Statements All systems [...] % (Auto) (14.1 - 45.4 %) 33.6 [place] % (Auto) (2.5 - 11.7 %) 13.4 H Eos % (Auto) (0.0 - 6.2 %) 7.4 H Baso % (Auto) (0.0 - 2.1 %) 0.9 Gran # (2.0 - 13.7 k/mm3) 2.61 Lymph # (Auto) (0.6 - 3.8 K/mm3) 1.96 [place] # (Auto) (0.11 - 0.59 K/mm3) 0.78 [...] - 8.0 pH UNITS) 6.0 Ur Specific [place] (1.001 - 1.035 SG) 1.032 Urine Protein [...] Report Impression - Status: SIGNED Entered: 09/14/2022208 IMPRESSION: No radiographic evidence of acute cardiopulmonary [...] 09/14 0407 DC 09/14 PO 09/14 040 045 Lorazepam 1 MG X1ED STA 09/14 310 [...] of care. at 0449 at 0540 RPT #:[id number] END OF [id number] 20:34:00 [facility] ([facility]) EMERGENCY PROVIDER REPORT REPORT#:[id number] REPORT STATUS: Signed DATE:09/13/22 TIME: 2033 PATIENT: BHUMIKA JONES UNIT #: [id number] ROOM/BED: [address]250[address] AGE: 47 SEX: F PCP [...] 3 MG PO DAILY at 1707 RPT #:[id number] END OF [id number] 09:58:00 [facility] ([facility]) EMERGENCY PROVIDER REPORT REPORT#:[id number] REPORT STATUS: Signed DATE:09/13/22 TIME: 957 PATIENT: BHUMIKA JONES UNIT #: [id number] ROOM/BED: AGE: 47 SEX: F PCP PHYS: [...] - 8.0 pH UNITS) 6.0 Ur Specific [place] (1.001 - 1.035 SG) 1.024 Urine Protein [...] % (Auto) (14.1 - 45.4 %) 34.0 [place] % (Auto) (2.5 - 11.7 %) 10.1 Eos % (Auto) (0.0 - 6.2 %) 2.7 Baso % (Auto) (0.0 - 2.1 %) 0.7 Gran # (2.0 - 13.7 k/mm3) 3.04 Lymph # (Auto) (0.6 - 3.8 K/mm3) 1.98 [place] # (Auto) (0.11 - 0.59 K/mm3) 0.59 [...] a call to 911. at 1327 RPT #:[id number] END OF REPORTHCACR
--- NOTE | 2024-02-15 13:17 | ER ---
Nurse's Notes [facility] Name: Davida Hodges Age: 49 yrs Sex: Female : 1975 Arrival Date: 02/15/2024 Time: 12:43 Bed IW2 Private MD: Diagnosis: Abrasion of lip;Contusion of lip;Laceration of lip and oral cavity without foreign body Presentation: 02/14 12:46 Chief complaint: Patient states: bit lip just [employer]. Want to know if the staff wants to ll1 buy [employer] EMS states: No complaints. Coronavirus screen: Client denies travel out of the [place] in the last 14 days. At this time, the client does not indicate any symptoms associated with coronavirus-19. Ebola Screen: Patient denies travel to an Ebola-affected area in the 21 days before illness onset. Initial Sepsis Screen: Does the patient meet any 2 criteria? No. Patient's initial sepsis screen is negative. Does the patient have a suspected source of infection? No. Patient's initial sepsis screen is negative. Risk Assessment: Do you want to hurt yourself or someone else? Patient reports no desire to harm self or others. Onset of symptoms was February 15, 2024. 12:46 Method Of Arrival: EMS ll1 12:46 Acuity: CARMITA 5 ll1 13:21 Care prior to arrival: None. Mechanism of Injury: No Mechanism of Injury. Trauma event ll1 details: Injury occurred in the [facility]. Triage Assessment: 12:48 General: Appears in no apparent distress. Behavior is calm, cooperative, appropriate ll1 for age. Pain: Denies pain. EENT: Reports bit lip just [employer]. [employer]: 13:23 LMP N/A - control method, Not ll1 Trauma Activation: Not Applicable Physician: ED Physician; Name: ; Notified At: ; Arrived At: Physician: General Surgeon; Name: ; Notified At: ; Arrived At: Physician: Radiology; Name: ; Notified At: ; Arrived At: Physician: Respiratory; Name: ; Notified At: ; Arrived At: Physician: Lab; Name: ; Notified At: ; Arrived At: Historical: - Allergies: 12:48 CARBAMAZEPINE DERIVATIVES; ll1 12:48 Depakote; ll1 12:48 Tegretol; ll1 - PMHx: 12:48 Seizure; ll1 - Immunization history:: Adult Immunizations up to date. - Infectious Disease History:: Denies. - Immunization history: Last tetanus immunization: - up to date. - Social history:: Smoking status: Patient denies any tobacco usage or history of. - Family history:: not pertinent. Screenin:17 [facility] ED Fall Risk Assessment (Adult) History of falling in the last 3 months, ll1 including since admission No falls in past 3 months (0 pts) Confusion or Disorientation No (0 pts) Intoxicated or Sedated No (0 pts) Impaired Gait No (0 pts) Mobility Assist Device Used No (0 pt) Altered Elimination No (0 pt) Score/Fall Risk Level 0 - 2 = Low Risk Maintained a safe environment, Hourly rounding (assess needs \T\ fall precautionary measures) done. Abuse screen: Denies threats or abuse. Nutritional screening: No deficits noted. Tuberculosis screening: No symptoms or risk factors identified. Primary Survey: 13:17 NO uncontrolled hemorrhage observed. A: The client is awake and alert. The airway is ll1 patent. Breathing/Chest: Spontaneous respiratory effort, equal unlabored respirations, breath sounds clear bilaterally, regular pattern, symmetrical chest rise and fall. Circulation: No external hemorrhage present. Regular and strong central pulse, skin warm/dry/normal color. Disability Client is alert. Exposure/Environment: There is no evidence of uncontrolled external bleeding. 13:21 Reassessment Breathing: Spontaneous respiratory effort, equal unlabored respirations, ll1 breath sounds clear bilaterally, regular pattern with symmetrical chest rise and fall. Assessment: 13:16 Reassessment: No changes from previously documented assessment. Patient and/or family ll1 updated on plan of care and expected duration. Pain level reassessed. Vital Signs: 12:46 BP 118 / 81; Pulse 83; Resp 16; Temp 97.2; Pulse Ox 100% ; Pain 5/10; ll1 12:46 Pain Scale: Adult ll1 [place] Coma Score: 13:11 Eye Response: spontaneous(4). Motor Response: obeys commands(6). Verbal Response: ry oriented(5). Total: 15. 13:17 Eye Response: spontaneous(4). Motor Response: obeys commands(6). Verbal Response: ll1 oriented(5). Total: 15. Trauma Score (Adult): 13:17 Eye Response: spontaneous(1); Verbal Response: oriented(1); Motor Response: obeys ll1 commands(2); Systolic BP: > 89 mm Hg(4); Respiratory Rate: 10 to 29 per min(4); Ingrid Score: 15; Trauma Score: 12 ED Course: 12:46 Patient arrived in ED. ll1 12:48 Triage completed. ll1 12:48 Arm band placed on. ll1 12:49 Pascual Lundy MD is Attending Physician. [facility] 13:21 No provider procedures requiring assistance completed. Patient did not have IV access ll1 during this emergency room visit. 13:22 Patient has correct armband on for positive identification. Provided Education on: n/a. ll1 13:22 Patient maintains SpO2 saturation greater than 95% on room air. ll1 13:22 Thermoregulation: n/a. ll1 Administered Medications: No medications were administered Medication: 13:22 VIS not applicable for this client. ll1 Intake: 13:23 PO: 0ml; Total: 0ml. ll1 Output: 13:23 Urine: 0ml; Total: 0ml. ll1 Outcome: 13:16 Discharge ordered by . [facility] 13:22 Discharged to home ambulatory, ll1 13:22 Condition: stable 13:22 Discharge instructions given to patient, Instructed on discharge instructions, follow up and referral plans. Demonstrated understanding of instructions, follow-up care, left without signing discharge instructions 13:22 Patient's length of stay was not longer than 2 hours. ll1 13:23 Patient left the ED. ll1 Signatures: Pascual Lundy MD MD cha Lewis, Lynsay RN RN ll1
--- NOTE | 2024-02-15 13:17 | EDPHYS ---
Physician Documentation [facility] Name: Davida Hodges Age: 49 yrs Sex: Female : 1975 Arrival Date: 02/15/2024 Time: 12:43 Bed IW2 Private MD: ED Physician Pascual Lundy HPI: 02/14 13:11 This 49 yrs old Female presents to ER via EMS with complaints of Lip Injury. ry 13:11 The patient presents with pain. The problem is located in the mouth. Onset: The ry symptoms/episode began/occurred just prior to arrival. Duration: The symptoms are intermittent, with no pattern. Modifying factors: The symptoms are alleviated by nothing, the symptoms are aggravated by nothing. Associated signs and symptoms: The patient has no apparent associated signs or symptoms. Severity of symptoms: At their worst the symptoms were very mild, in the emergency department the symptoms are unchanged. The patient has experienced similar episodes in the past, multiple times. 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 - Infectious Disease History:: Denies. - Immunization history: Last tetanus immunization: - up to date. - Social history:: Smoking status: Patient denies any tobacco usage or history of. - Family history:: not pertinent. ROS: 13:11 Constitutional: Negative for fever, chills, and weight loss, Eyes: Negative for injury, ry pain, redness, and discharge, Neck: Negative for injury, pain, and swelling, Cardiovascular: Negative for chest pain, palpitations, and edema, Respiratory: Negative for shortness of breath, cough, wheezing, and pleuritic chest pain, Abdomen/GI: Negative for abdominal pain, nausea, vomiting, diarrhea, and constipation, Back: Negative for injury and pain, : Negative for injury, bleeding, discharge, and swelling, MS/Extremity: Negative for injury and deformity, Skin: Negative for injury, rash, and discoloration, Neuro: Negative for headache, weakness, numbness, tingling, and seizure, Psych: Negative for depression, anxiety, suicide ideation, homicidal ideation, and hallucinations, Allergy/Immunology: Negative for hives, rash, and allergies, Endocrine: Negative for neck swelling, polydipsia, polyuria, polyphagia, and marked weight changes, Hematologic/Lymphatic: Negative for swollen nodes, abnormal bleeding, and unusual bruising, 13:11 ENT: Positive for dental pain, Exam: 13:11 Constitutional: This is a well developed, well nourished patient who is awake, alert, ry and in no acute distress. Head/Face: Normocephalic, atraumatic. Eyes: Pupils equal round and reactive to light, extra-ocular motions intact. Lids and lashes normal. Conjunctiva and sclera are non-icteric and not injected. Cornea within normal limits. Periorbital areas with no swelling, redness, or edema. ENT: Nares patent. No nasal discharge, no septal abnormalities noted. Tympanic membranes are normal and external auditory canals are clear. Oropharynx with no redness, swelling, or masses, exudates, or evidence of obstruction, uvula midline. Mucous membranes moist. Neck: Trachea midline, no thyromegaly or masses palpated, and no cervical lymphadenopathy. Supple, full range of motion without nuchal rigidity, or vertebral point tenderness. No Meningismus. Chest/axilla: Normal chest wall appearance and motion. Nontender with no deformity. No lesions are appreciated. Cardiovascular: Regular rate and rhythm with a normal S1 and S2. No gallops, murmurs, or rubs. Normal PMI, no JVD. No pulse deficits. Respiratory: Lungs have equal breath sounds bilaterally, clear to auscultation and percussion. No rales, rhonchi or wheezes noted. No increased work of breathing, no retractions or nasal flaring. Abdomen/GI: Soft, non-tender, with normal bowel sounds. No distension or tympany. No guarding or rebound. No evidence of tenderness throughout. Back: No spinal tenderness. No costovertebral tenderness. Full range of motion. Skin: Warm, dry with normal turgor. Normal color with no rashes, no lesions, and no evidence of cellulitis. MS/ Extremity: Pulses equal, no cyanosis. Neurovascular intact. Full, normal range of motion. Neuro: Awake and alert, GCS 15, oriented to person, place, time, and situation. Cranial nerves II-XII grossly intact. Motor strength 5/5 in all extremities. Sensory grossly intact. Cerebellar exam normal. Normal gait. Psych: Awake, alert, with orientation to person, place and time. Behavior, mood, and affect are within normal limits. Vital Signs: 12:46 BP 118 / 81; Pulse 83; Resp 16; Temp 97.2; Pulse Ox 100% ; Pain 5/10; ll1 12:46 Pain Scale: Adult ll1 Ingrid Coma Score: 13:11 Eye Response: spontaneous(4). Motor Response: obeys commands(6). Verbal Response: ry oriented(5). Total: 15. 13:17 Eye Response: spontaneous(4). Motor Response: obeys commands(6). Verbal Response: ll1 oriented(5). Total: 15. Trauma Score (Adult): 13:17 Eye Response: spontaneous(1); Verbal Response: oriented(1); Motor Response: obeys ll1 commands(2); Systolic BP: > 89 mm Hg(4); Respiratory Rate: 10 to 29 per min(4); [place] Score: 15; Trauma Score: 12 MDM: 12:49 Patient medically screened. ry 13:13 Differential diagnosis: dental caries, gingivitis. Data reviewed: vital signs, nurses ry notes. Consideration of Admission/Observation Escalation of care including admission/observation considered. I considered the following discharge prescriptions or medication management in the emergency department Medications were administered in the Emergency Department. See MAR. Test considered but Not performed: Labs: no labs. Care significantly affected by the following chronic conditions: seizures, bipolar, schizo. Administered Medications: No medications were administered Disposition Summary: 02/15/24 13:16 Discharge Ordered Notes: Location: Home ry Problem: new ry Symptoms: have improved ry Condition: Stable ry Diagnosis - Abrasion of lip ry - Contusion of lip ry - Laceration of lip and oral cavity without foreign body ry Followup: ry - With: Private Physician - When: 2 - 3 days - Reason: Recheck today's complaints, Continuance of care, Re-evaluation by your physician Discharge Instructions: - Discharge Summary Sheet ry - Mouth Laceration ry - Mouth Laceration, [id number] ry Forms: - Medication Reconciliation Form ry - Antibiotic Education ry - Prescription Opioid Use ry - Patient Portal Instructions ry - Leadership Thank You Letter ry Signatures: Pascual Lundy MD MD cha Lewis, Lynsay, RN RN ll1
[2024-02-15 13:34] VITALS: BP 118/81; TEMP 97.2; O2SAT 100
== END 2024-02-15 13:23 | disposition home or self-care (01) ==
LOC: ER 12:43
DX: S01.511A Laceration without foreign body of lip, initial encounter (principal); S01.512A Laceration without foreign body of oral cavity, initial encounter
CPT/HCPCS: 99284

== ENCOUNTER 2024-02-19 17:23 | Emergency (ER) | payer SELFPAY ==
--- OUTSIDE RECORDS SUMMARY | 2024-02-19 17:31 | XMS REPORT | Continuity of Care Document ---
Author Name Unknown Address [address] [facility] [address] [place] [address] [facility] thconnect Address [address] 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 Role Phone PCP, NO Primary Care Physician Unavailab LAWRENCE Weston Attending Clinician Unavailable ARLEN LAGUNAS Attending Clinician Unavailable JUAN MIGUEL PRICE Attending Clinician Unavailable MELVINA SHEPHERD Attending Clinician Tommy Phelan MD, Indio Perdue Attending Clinician INDIO PHELAN Attending Clinician Unavail able INDIO PHELAN Attending Clinician Unavail able Doctor Unassigned, [place] Attending Clinician U navailable Neurology Attending Clinician Unavailable DR JESS PAIGE Attending Clinician Unavailable Heri Snow MD Attending Clinician [phone] Denise MELTON, Madhavi Mota Attending Clinician Zari Marly Rodríguez Attending Clinician Unavailable Asim Jack Attending Clinician Unavailable Vladimir Forbes Attending Clinician Unavailable Brad Woodall Attending Clinician Unavaila Russel Angelo Attending Clinician Unavailermelinda Morfin MD, Lisa Schmitz Attending Clinician [phone] Sandrita Key MD Attending Clinician [phone] SANDRITA KEY Attending Clinician Unavailable TAYO BOYD Attending Clinician Unavailable Tayo Boyd MD Attending Clinician [phone] JAVED FRANK Attending Clinician Unavailable Javed Chavez Attending Clinician [phone] DEON NUNEZ Attending Clinician Unavailable Deon Nunez DO Attending Clinician [phone] Kp Dorado Attending Clinician [phone] Kp GILLILAND Attending Clinician Unavailable Kristin Howell Attending Clinician [phone] KRISTIN MILLER Attending Clinician Unavailable Floridalma Evans MD Attending Clinician [phone] FLORIDALMA EVANS Attending Clinician Unavailable Unknown, Attending Attending Clinician Unavailab LISA Kasper Attending Clinician UnavailHENRY Hall Attending Clinician Unavailable Henry Owen MD Attending Clinician [phone] DEBBIE PAYTON Attending Clinician Unavailab Debbie Hernandez DO Attending Clinician [phone] Le Ramirez NP Attending Clinician [phone] LAWRENCE MEJIAS Admitting Clinician Unavailable KAYLA ALANIZ [...] Number Effective Date Expirati on Date Source [facility] [id number] 1000 [id number] 2022 00:00:00 MEDICAID ALIEN PENDING PENDING 2021 [...] different from the original. ICD10 Diagnosis Term Claims Specialist Utility General acute hospital Asthma Asthma Disease Active 08-01 00:00: 00 Overview: Formattin g of this note might be different from the original. ICD10 Diagnosis Term Claims Specialist Utility General acute hospital Mental disorder Mental disorder Disease Active 08-01 00:00: 00 General acute hospital Encounter for routine gynecologi gracie examinatio n Encounter for routine gynecologi gracie examinatio n Disease Active 08-01 00:00: 00 Overview: Formattin g of this note might be different from the original. ICD10 Diagnosis Term Claims Specialist Utility General acute hospital Morbid obesity Morbid [...] Allergie s NA Active 11-23 07:59: 00 [facility] No Known Allergie s NA Active 11-22 21:17: 11 [facility] No Known Allergie s NA Active 11-22 19:46: 36 [facility] No Known Allergie s DA Active U 09-13 00:00: 00 [facility] carbamaz epine DA Active U UNKNOWN 09-13 00:00: 00 [facility] carbamaz epine DA Active U UNKNOWN 09-10 00:00: 00 [facility] No Known Drug Allergie s DA Active [facility] NO KNOWN ALLERGIE S Drug Class Active General acute hospital Social History Social Habit Start Date Stop Date Quantity Comments Source ASSERTION [facility] Future intention Reported [facility] intake 2023-07-23 00:00:00 2023-07-23 00:00:00 Current non-drinker of alcohol (finding) [facility] History of Social function 2023-07-23 00:00:00 2023-07-23 00:00:00 [facility] Exposure to SARS-CoV-2 (event) 2022-09-14 00:00:00 2022-09-24 12:30:00 Not sure [facility] Tobacco use and exposure 2014-07-05 00:00:00 2014-07-05 00:00:00 Smokeless tobacco non-user [facility] Sex Assigned At 1975 00:00:00 1975 00:00:00 [facility] Smoking Status Start Date Stop Date Source [...] ML SOLN|dose: 2.0 mg|route:| frequency: ONE TIME [facility] diphenhydrA MINE INJ (Benadryl) 50 MG/ML SOLN diphenhydrA MINE INJ (Benadryl) 50 MG/ML SOLN 11-22 23:33: 00 11-22 23:33 :00 No 50mg medication :diphenhyd rAMINE INJ (Benadryl) 50 MG/ML SOLN|dose: 50.0 mg|route:| frequency: ONE TIME [facility] LORazepam INJ 2 MG/1 ML SOLN LORazepam INJ 2 MG/1 ML SOLN 11-22 23:33: 00 11-22 23:33 :00 No 2mg medication :LORazepam INJ 2 MG/1 ML SOLN|dose: 2.0 mg|route:| frequency: ONE TIME [facility] ziprasidone INJ 20 MG SOLR ziprasidone INJ 20 MG SOLR 11-22 20:05: 00 11-22 20:05 :00 No 10mg medication :ziprasido ne INJ 20 MG SOLR|dose: 10.0 mg|route:I NTRAMUSCUL AR|frequen cy:ONE TIME [facility] ([facility]) sterile water for injection SOLN sterile water for injection SOLN 11-22 20:05: 00 11-22 20:05 :00 No 10mL medication :sterile water for injection SOLN|dose: 10.0 mL|route:| frequency: ONE TIME [facility] ([facility]) levothyroxi ne 50 mcg tablet 10-12 [...] 3 TIMES A DAY NEEDED FOR ANXIETY -08 00:00: 00 Yes 5 Henry Contreras TAKE 1 TABLET BY MOUTH DAILY 08-01 00:00: 00 Yes 2 Henry Contreras TAKE 1 TABLET AT BEDTIME. 08 00:00: 00 11-01 00:00 :00 No 1 Henry Contreras risperidone 1 mg tablet 2-07 00:00: 00 Yes mg Henry Contreras TAKE 1 TABLET BY MOUTH EVERY NIGHT AT BEDTIME 07-23 00:00: 00 Yes Henry Contreras risperiDONE 1 mg tablet 130 00:00: 00 Yes [id number] 1mg Take 1 tablet by mouth at bedtime. [facility] acute hospital TAKE 1 TABLET 3 TIMES A DAY NEEDED FOR ANXIETY -11 00:00: 00 11-01 00:00 :00 No 5 [...] 2 Henry Contrersa TAKE 1 TABLET DAILY. 2022-06 00:00: 00 11-01 00:00 :00 No 25 Henry Contreras TAKE 1 TABLET DAILY. 2022-06 00:00: 00 Yes [id number] Henry Contreras TAKE 1 TABLET EVERY 6 HOURS NEEDED FOR DIZZINESS. 2022-06 00:00: 00 11-01 00:00 :00 No 25 Henry Contreras TAKE 1 TABLET BY MOUTH DAILY 2022-06 00:00: 00 11-01 00:00 :00 No 2 Henry Contreras TAKE 1 TABLET DAILY. 03-04 00:00: 00 11-01 00:00 :00 No [id number] Henry Contreras TAKE 1-2 TABS EVERY 8 [...] MOUTH EVERY 8 HOURS FOR 10 DAYS 2023-0 7-25 00:00: 00 Yes Henry Contreras divalproex 500 mg tablet,nette yed release 324 00:00: 00 Yes mg Henry Contreras Epitol [...] 1 dose, On 09/09/22 at 2115, STAT [facility] acute hospital hydrOXYzine 25 mg tablet 09-09 00:00: 00 Yes [id number] 25mg Take 1 tablet by mouth every 6 (six) hours. [facility] acute hospital levETIRAcet am (KEPPRA) 500 mg tablet 09-09 00:00: 00 Yes [id number] 500mg Take 1 tablet by mouth 2 (two) times daily. [facility] acute hospital acetaminoph en (TYLENOL) tablet 650 mg 09-07 00:45: 00 09-07 02:10 :00 No 650mg 650 mg, Oral, ONCE, 1 dose, On Diana 09/06/22 at 1945, AYESHA [facility] acute hospital TAKE 1 TABLET BY MOUTH IN THE [...] 1 dose, On Sat10/02/21 at 1715, AYESHA [facility] acute hospital ibuprofen (IBU) tablet 600 mg 10-02 22:15: 00 10-02 23:27 :00 No 600mg 600 mg, Oral, ONCE, 1 dose, On Sat10/02/21 at 1715, AYESHA [facility] acute hospital hydroxyzine HCl 25 mg tablet 2020-06 00:00: 00 Yes 1mg Henry Contreras traMADoL 50 mg tablet 2020-06 00:00: 00 Yes [id number] 50mg Take 1 tablet by mouth every 6 (six) hours as needed for Pain (scale 7-10). Indication s: acute pain [facility] acute hospital naproxen sodium (ANAPROX DS) 550 mg tablet 2020-06 00:00: 00 Yes [id number] 550mg Take 1 tablet by mouth 2 (two) times daily with meals. [facility] acute hospital ibuprofen 600 mg tablet 2020-06 00:00: 00 Yes 1mg Henry Contreras amoxicillin -clavulanat e 875-125 mg per tablet 08-13 00:00: 00 Yes [id number] 1{tbl} Take 1 tablet by mouth every 12 (twelve) hours. [facility] acute hospital clindamycin 300 mg capsule 08-13 00:00: 00 08-23 05:59 :00 No [id number] 300mg Take 1 capsule by mouth 4 (four) times daily for 10 days. [facility] acute hospital methocarbam ol (ROBAXIN) tablet 1,000 mg 07-23 00:30: 00 07-22 23:39 :00 No 1000mg 1,000 mg, Oral, ONCE, 1 dose, 07/22/19 at 1830, Routine [facility] acute hospital Keflex 500 mg capsule 07-23 00:00: 00 Yes 1mg Henry Contreras Bromfed DM 2 mg-30 mg-10 mg/5 mL oral syrup 07-23 00:00: 00 Yes 5mg/5 mL Henry Contreras ketorolac (TORADOL) injection 30 mg 07-23 00:00: 07-22 23:00 :00 No 30mg 30 mg, Intramuscu lar, ONCE, 1 dose, Sat07/22/19 at 1800, Routine
faculty member approving Restricted medication : LISA MORFIN [facility] acute hospital mupirocin 2 % topical ointment 07-16 00:00: 00 Yes 1% Henry Contreras Keflex 500 mg capsule 07-16 00:00: 00 Yes 1mg Henry Contreras ketorolac (TORADOL) injection 30 mg 07-14 03:30: 00 07-14 02:57 :00 No 30mg 30 mg, Intramuscu lar, ONCE, 1 dose, Sat07/13/19 at 2130, AYESHA
Fa culty member approving Restricted medication : LEXIE HENRY [facility] acute hospital ketorolac 10 mg tablet 07-13 00:00: 00 07-19 05:59 :00 No [id number] 10mg Take 1 tablet by mouth every 8 (eight) hours for 5 days. [facility] acute hospital mupirocin 2 % topical ointment 07-10 00:00: 00 Yes 1% Henry Contreras ibuprofen 800 mg tablet 07-10 00:00: 00 Yes 1mg Henry Contreras Keflex 500 mg capsule 07-10 00:00: 00 Yes 1mg Henry Contreras cephALEXin (KEFLEX) 500 mg capsule 07-04 00:00: 00 Yes [id number] 500mg Take 1 capsule by mouth 4 (four) times daily. [facility] acute hospital traMADol 50 mg tablet 07-04 00:00: 00 05-05 00:00 :00 No [id number] 50mg Take 1 tablet by mouth every 6 (six) hours as needed for Pain (scale 7-10). [facility] acute hospital bacitracin 500 unit/gram ointment 07-04 00:00: 00 07-15 05:59 :00 No [id number] Apply to affected area(s) 2 (two) times daily for 10 days. [facility] acute hospital traMADol 50 mg tablet 06-30 00:00: 00 05-05 00:00 :00 No [id number] 50mg Take 1 tablet by mouth every 6 (six) hours as needed for Pain (scale 7-10). [facility] acute hospital Dose Unknown 2018-06 00:00: 00 Yes Henry [...] times daily with meals. General acute hospital nystatin-tr iamcinolone 100,000 unit/g-0.1 % topical cream [...] hospital hydrocortis one 2.5 % rectal cream 12-31 00:00: 00 Yes Insert into rectum 2 (two) times daily. [facility] acute hospital hydrocortis one (ANUSOL-HC) 25 mg suppository 07-23 00:00: 00 Yes 25mg Insert 1 Suppositor y into rectum 2 (two) times daily. [facility] acute hospital Trileptal 300 mg tablet 01-30 00:00: 00 [...] Moderna COVID-19 Vaccine 2022-01-08 00:00:00 Completed Henry Contreras Moderna COVID-19 Vaccine Moderna COVID-19 Vaccine 2020-09-27 00:00:00 Completed Henry Contreras Moderna COVID-19 Vaccine Moderna COVID-19 Vaccine 2020-08-26 00:00:00 Completed Henry Etta Ben Vital Signs Vital Name Observation Time Observation Value Comments S ource Body temperature 2023-11-24 19:00:00 98.1 [degF] [facility]) Diastolic blood pressure 2023-11-24 19:00:00 69 mm[Hg] [facility]) Heart rate 2023-11-24 19:00:00 70 /min [facility]) Oxygen saturation in Arterial blood by Pulse oximetry 2023-11-24 19:00:00 97 /min [facility]) Respiratory rate 2023-11-24 19:00:00 16 /min [facility]) Systolic blood pressure 2023-11-24 19:00:00 127 mm[Hg] [facility] Diastolic blood pressure 2023-11-23 23:30:00 78 mm[Hg] [facility] Heart rate 2023-11-23 23:30:00 74 /min [facility] Oxygen saturation in Arterial blood by Pulse oximetry 2023-11-23 23:30:00 97 /min [facility] Respiratory rate 2023-11-23 23:30:00 16 /min [facility]) Systolic blood pressure 2023-11-23 23:30:00 134 mm[Hg] [facility] Body temperature 2023-11-23 19:30:00 98.5 [degF] [facility] Body height 2023-07-23 20:19:00 152.4 cm [facility] Body weight 2023-07-23 20:19:00 77.837 kg [facility] BMI 2023-07-23 20:19:00 33.51 kg/m2 [facility] Height 2022-11-04 14:04:00 149.86 CM Weight 2022-11-04 14:04:00 73.02 KG Systolic blood pressure 2022-09-24 17:32:00 130 mm[Hg] [facility] Diastolic blood pressure 2022-09-24 17:32:00 85 mm[Hg] [facility] Heart rate 2022-09-24 17:32:00 64 /min [facility] Body temperature 2022-09-24 17:32:00 36.83 Oma [facility] Respiratory rate 2022-09-24 17:32:00 18 /min [facility] Body weight 2022-09-24 17:32:00 74.844 kg [facility] BMI 2022-09-24 17:32:00 33.33 kg/m2 [facility] Oxygen saturation in Arterial blood by Pulse oximetry 2022-09-24 17:32:00 99 /min [facility] Systolic blood pressure 2022-09-10 23:55:00 111 mm[Hg] [facility] Diastolic blood pressure 2022-09-10 23:55:00 84 mm[Hg] [facility] Heart rate 2022-09-10 23:55:00 105 /min [facility] Body temperature 2022-09-10 23:55:00 37.33 Oma [facility] Respiratory rate 2022-09-10 23:55:00 19 /min [facility] Systolic blood pressure 2022-09-10 01:44:00 126 mm[Hg] [facility] Diastolic blood pressure 2022-09-10 01:44:00 81 mm[Hg] [facility] Heart rate 2022-09-10 01:44:00 78 /min [facility] Body temperature 2022-09-10 01:44:00 36.56 Oma [facility] Respiratory rate 2022-09-10 01:44:00 16 /min [facility] Body weight 2022-09-10 01:44:00 79.379 kg [facility] BMI 2022-09-10 01:44:00 35.35 kg/m2 [facility] Oxygen saturation in Arterial blood by Pulse oximetry 2022-09-10 01:44:00 100 /min [facility] Systolic blood pressure 2022-09-07 05:37:00 119 mm[Hg] [facility] Diastolic blood pressure 2022-09-07 05:37:00 67 mm[Hg] [facility] Heart rate 2022-09-07 05:37:00 79 /min [facility] Respiratory rate 2022-09-07 05:37:00 16 /min [facility] Oxygen saturation in Arterial blood by Pulse oximetry 2022-09-07 05:37:00 98 /min [facility] Body temperature 2022-09-06 23:05:00 36.78 Oma [facility] Body weight 2022-09-06 23:05:00 79.379 kg [facility] BMI 2022-09-06 23:05:00 35.35 kg/m2 [facility] Systolic blood pressure 2021-10-02 20:55:00 111 mm[Hg] [facility] Diastolic blood pressure 2021-10-02 20:55:00 70 mm[Hg] [facility] Heart rate 2021-10-02 20:55:00 79 /min [facility] Body temperature 2021-10-02 20:55:00 36.61 Oma [facility] Respiratory rate 2021-10-02 20:55:00 18 /min [facility] Body height 2021-10-02 20:55:00 149.9 cm [facility] Body weight 2021-10-02 20:55:00 79.379 kg [facility] BMI 2021-10-02 20:55:00 35.35 kg/m2 [facility] Oxygen saturation in Arterial blood by Pulse oximetry 2021-10-02 20:55:00 100 /min [facility] Systolic blood pressure 2021-05-05 19:20:00 102 mm[Hg] [facility] Diastolic blood pressure 2021-05-05 19:20:00 48 mm[Hg] [facility] Heart rate 2021-05-05 19:20:00 68 /min [facility] Body temperature 2021-05-05 19:20:00 36.94 Oma [facility] Respiratory rate 2021-05-05 19:20:00 18 /min [facility] Body weight 2021-05-05 19:20:00 79.379 kg [facility] BMI 2021-05-05 19:20:00 35.35 kg/m2 [facility] Oxygen saturation in Arterial blood by Pulse oximetry 2021-05-05 19:20:00 99 /min [facility] Systolic blood pressure 2019-12-15 22:12:00 138 mm[Hg] [facility] Diastolic blood pressure 2019-12-15 22:12:00 100 mm[Hg] [facility] Heart rate 2019-12-15 22:12:00 77 /min [facility] Body temperature 2019-12-15 22:12:00 37.06 Oma [facility] Respiratory rate 2019-12-15 22:12:00 20 /min [facility] Body weight 2019-12-15 22:12:00 79.379 kg [facility] BMI 2019-12-15 22:12:00 35.35 kg/m2 [facility] Oxygen saturation in Arterial blood by Pulse oximetry 2019-12-15 22:12:00 100 /min [facility] Systolic blood pressure 2019-12-15 22:12:00 138 mm[Hg] [facility] Diastolic blood pressure 2019-12-15 22:12:00 100 mm[Hg] [facility] Heart rate 2019-12-15 22:12:00 77 /min [facility] Body temperature 2019-12-15 22:12:00 37.06 Oma [facility] Respiratory rate 2019-12-15 22:12:00 20 /min [facility] Body weight 2019-12-15 22:12:00 79.379 kg [facility] BMI 2019-12-15 22:12:00 35.35 kg/m2 [facility] Oxygen saturation in Arterial blood by Pulse oximetry 2019-12-15 22:12:00 100 /min [facility] Respiratory rate 2019-10-25 23:43:00 18 /min [facility] Body weight 2019-10-25 23:43:00 83.915 kg [facility] BMI 2019-10-25 23:43:00 37.37 kg/m2 [facility] Respiratory rate 2019-10-25 23:43:00 18 /min [facility] Body weight 2019-10-25 23:43:00 83.915 kg [facility] BMI 2019-10-25 23:43:00 37.37 kg/m2 [facility] Systolic blood pressure 2019-08-13 19:25:00 123 mm[Hg] [facility] Diastolic blood pressure 2019-08-13 19:25:00 88 mm[Hg] [facility] Heart rate 2019-08-13 19:25:00 78 /min [facility] Body temperature 2019-08-13 19:25:00 36.56 Oma [facility] Respiratory rate 2019-08-13 19:25:00 18 /min [facility] Body height 2019-08-13 19:25:00 149.9 cm [facility] Body weight 2019-08-13 19:25:00 90.719 kg [facility] BMI 2019-08-13 19:25:00 40.40 kg/m2 [facility] Oxygen saturation in Arterial blood by Pulse oximetry 2019-08-13 19:25:00 100 /min [facility] Systolic blood pressure 2019-08-13 19:25:00 123 mm[Hg] [facility] Diastolic blood pressure 2019-08-13 19:25:00 88 mm[Hg] [facility] Heart rate 2019-08-13 19:25:00 78 /min [facility] Body temperature 2019-08-13 19:25:00 36.56 Oma [facility] Respiratory rate 2019-08-13 19:25:00 18 /min [facility] Body height 2019-08-13 19:25:00 149.9 cm [facility] Body weight 2019-08-13 19:25:00 90.719 kg [facility] BMI 2019-08-13 19:25:00 40.40 kg/m2 [facility] Oxygen saturation in Arterial blood by Pulse oximetry 2019-08-13 19:25:00 100 /min [facility] Systolic blood pressure 2019-07-23 00:20:15 120 mm[Hg] [facility] Diastolic blood pressure 2019-07-23 00:20:15 74 mm[Hg] [facility] Heart rate 2019-07-23 00:20:15 82 /min [facility] Respiratory rate 2019-07-23 00:20:15 19 /min [facility] Oxygen saturation in Arterial blood by Pulse oximetry 2019-07-23 00:20:15 100 /min [facility] Body temperature 2019-07-22 19:41:00 36.33 Oma [facility] Body weight 2019-07-22 19:39:00 90.719 kg [facility] BMI 2019-07-22 19:39:00 39.06 kg/m2 [facility] Systolic blood pressure 2019-07-23 00:20:15 120 mm[Hg] [facility] Diastolic blood pressure 2019-07-23 00:20:15 74 mm[Hg] [facility] Heart rate 2019-07-23 00:20:15 82 /min [facility] Respiratory rate 2019-07-23 00:20:15 19 /min [facility] Oxygen saturation in Arterial blood by Pulse oximetry 2019-07-23 00:20:15 100 /min [facility] Body temperature 2019-07-22 19:41:00 36.33 Oma [facility] Body weight 2019-07-22 19:39:00 90.719 kg [facility] BMI 2019-07-22 19:39:00 39.06 kg/m2 [facility] Systolic blood pressure 2019-07-14 03:33:00 127 mm[Hg] [facility] Diastolic blood pressure 2019-07-14 03:33:00 88 mm[Hg] [facility] Heart rate 2019-07-14 03:33:00 79 /min [facility] Respiratory rate 2019-07-14 03:33:00 16 /min [facility] Oxygen saturation in Arterial blood by Pulse oximetry 2019-07-14 03:33:00 97 /min [facility] Body weight 2019-07-14 02:16:00 90.719 kg [facility] BMI 2019-07-14 02:16:00 39.06 kg/m2 [facility] Body temperature 2019-07-14 02:15:00 36.78 Oma [facility] Body weight 2019-07-10 20:39:00 90.719 kg [facility] BMI 2019-07-10 20:39:00 39.06 kg/m2 [facility] Systolic blood pressure 2019-01-21 23:34:00 133 mm[Hg] [facility] Diastolic blood pressure 2019-01-21 23:34:00 78 mm[Hg] [facility] Heart rate 2019-01-21 23:34:00 66 /min [facility] Body temperature 2019-01-21 23:34:00 36.94 Oma [facility] Respiratory rate 2019-01-21 23:34:00 18 /min [facility] Body height 2019-01-21 23:34:00 147.3 cm [facility] Body weight 2019-01-21 23:34:00 68.04 kg [facility] BMI 2019-01-21 23:34:00 31.35 kg/m2 [facility] Oxygen saturation in Arterial blood by Pulse oximetry 2019-01-21 23:34:00 100 /min [place] [facility] Systolic blood pressure 2019-01-21 23:34:00 133 mm[Hg] [place] [facility] Diastolic blood pressure 2019-01-21 23:34:00 78 mm[Hg] [facility] Heart rate 2019-01-21 23:34:00 66 /min [facility] Body temperature 2019-01-21 23:34:00 36.94 Oma [facility] Respiratory rate 2019-01-21 23:34:00 18 /min [facility] Body height 2019-01-21 23:34:00 147.3 cm [facility] Body weight 2019-01-21 23:34:00 68.04 kg [facility] BMI 2019-01-21 23:34:00 31.35 kg/m2 [facility] Oxygen saturation in Arterial blood by Pulse oximetry 2019-01-21 23:34:00 100 /min [place] [facility] BP Systolic 2023-11-25 16:08:00 109 mm[Hg] Step hen Etta Ben BP Diastolic 2023-11-25 16:08:00 72 mm[Hg] Franck phen Etta Contreras Weight Measured 2023-11-25 16:08:00 161.40 pounds [...] Rate 2023-01-09 17:12:00 19.00 /min [facility] Procedures Procedure Date / Time Performed Performing Clinician Source ASSIGNMENT OF BENEFITS 2023-07-23 18:45:32 Docto r Unassigned, [place] [facility] REFERRAL- REQUEST/RESPONSE 2023-06-05 06:01:00 Doctor Unassigned, [place] [facility] REFERRAL- REQUEST/RESPONSE 2023-05-20 06:01:00 Doctor Unassigned, [place] [facility] COMP. METABOLIC PANEL (94759) 2022-09-07 01:38:00 Tayo Boyd [facility] CBC WITH DIFF 2022-09-07 01:38:00 Tayo Boyd [facility] URINALYSIS 2022-09-07 01:38:00 [facility] LEFT 2022-09-07 00:56:00 Tayo Boyd [facility] XR FOOT <3 VW LEFT 2022-09-07 00:56:00 Tayo Boyd [facility] CONSENT/REFUSAL FOR DIAGNOSIS AND TREATMENT 2022-09-06 22:08:37 Doctor Unassigned, [place] [facility] CT CERVICAL SPINE WO CONTRAST 2021-10-02 21:53:00 Javed Frank [facility] CT LUMBAR SPINE WO CONTRAST 2021-10-02 21:53:00 Javed Frank [facility] CT THORACIC SPINE WO CONTRAST 2021-10-02 21:53:00 Javed Frank [facility] XR FOREARM 2 VW RIGHT 2021-05-05 20:03:34 Jose Carlos Nunez [facility] XR WRIST 3+ VW RIGHT 2021-05-05 20:03:34 Chino Nunez [facility] NOTICE OF PRIVACY PRACTICES 2021-05-05 19:12:00 Doctor Unassigned, [place] [facility] CONSENT/REFUSAL FOR DIAGNOSIS AND TREATMENT 2021-05-05 19:11:19 Doctor Unassigned, [place] [facility] CONSENT/REFUSAL FOR DIAGNOSIS AND TREATMENT 2019-08-13 19:17:22 Doctor Unassigned, [place] [facility] CT HEAD WO CONTRAST 2019-07-22 22:24:37 Rachel Samayoa [facility] XR CERVICAL SPINE 2 VW 2019-07-22 21:59:59 Samantha Samayoa [facility] CBC WITH DIFFERENTIAL 2019-07-22 21:34:00 Yanira Samayoa [facility] XR CERVICAL SPINE 2 VW 2019-07-14 02:43:00 Ivory Owen [facility] XR ELBOW <3 VW LEFT 2019-07-14 02:43:00 Henry Owen [facility] XR KNEE <3 VW RIGHT 2019-07-14 02:43:00 Henry Owen [facility] XR SHOULDER <2 VW LEFT 2019-07-14 02:43:00 Ivory Owen [facility] [address] Ecg Routine Ecg W/least 12 Lds W/i r 2017-09-24 00:00:00 Henry Contreras Encounters Start Date/Time End Date/Time Encounter Type Admission Type Attending [facility] Care Department Encounter ID Source 2022-11-13 13:10:[address] [facility] [id number] [facility] 2022-11-05 09:23:[address] [facility] [id number] [facility] 2024-02-06 11:12:07 2024-02-06 11:12:07 Outpatient SFA SFA [id number] Henry Quiles Ben 2024-01-02 13:29:25 2024-01-02 13:29:25 Outpatient SFA SFA [id number] Henry F Ben 2024-01-01 13:05:17 2024-01-01 13:05:17 Outpatient SFA SFA [id number] Henry F Ben 2023-12-23 17:12:35 2023-12-23 17:12:35 Outpatient SFA SFA [id number] Henry Etta Ben 2023-12-22 16:03:42 2023-12-22 16:03:42 Outpatient SFA SFA [id number] Henry Etta Ben 2023-12-01 14:21:07 2023-12-01 14:21:07 Outpatient SFA SFA [id number] Henry Contreras 2023-11-25 16:08:00 2023-11-25 16:08:00 Outpatient SFA SFA 602 Henry Contreras 2023-11-25 00:00:00 2023-11-25 00:00:00 Outpatient Visit SFA [id number] Henry Contreras 2023-11-23 19:45:00 2023-11-24 19:04:00 Outpatient Encounter 1 LAWRENCE MEJIAS [facility] 2.16.840.1. [id number] [facility] 2023-11-21 19:00:00 2023-11-22 01:00:00 Emergency ER [id number] [facility] 2023-11-16 23:05:00 2023-11-21 17:28:00 Inpatient ER JUAN MIGUEL [id number] [facility] 2023-11-15 16:24:00 2023-11-15 22:54:00 Emergency ER [id number] [facility] 2023-10-28 12:27:38 2023-10-28 12:27:38 Outpatient SFA SFA [id number] Henry Contreras 2023-10-25 15:44:11 2023-10-25 15:44:11 Outpatient SFA SFA 502 Henry Contreras 2023-10-25 00:00:00 2023-10-25 00:00:00 Outpatient Visit SFA [id number] Henry Contreras 2023-10-04 15:25:52 2023-10-04 15:25:52 Outpatient SFA SFA [id number] Henry Contreras 2023-10-01 00:00:00 2023-10-01 00:00:00 Telephone Indio Phelan [facility] 1.2.840.114 350.1.13.10 4.2.7.2.686 [id number] General acute hospital 2023-09-16 16:03:08 2023-09-16 16:03:08 Outpatient SFA SFA [id number] Henry Contreras 2023-08-01 10:00:49 2023-08-01 10:00:49 Outpatient SFA [facility] [id number] Henry Contreras 2023-07-23 14:20:00 2023-07-23 16:57:02 Outpatient R INDIO PHELAN [facility] [id number] General acute hospital 2023-07-23 14:20:00 2023-07-23 16:57:02 [facility] 1.2.840.114 350.1.13.10 4.2.7.2.686 [id number] General acute hospital 2023-07-23 00:00:00 2023-07-23 00:00:00 Orders Only Doctor Unassigned, [place] [facility] 1.840.114 350.1.13.10 4.2.7.2.686 [id number] General acute hospital 2023-07-04 16:48:23 2023-07-04 16:48:23 Outpatient SFA SFA [id number] Henry Quiles Ben 2023-06-18 10:35:36 2023-06-18 10:35:36 Outpatient SFA SFA [id number] Henry Contreras 2023-06-05 00:00:00 2023-06-05 00:00:00 Orders Only Doctor Unassigned, [place] [facility] 1.2840.114 350.1.13.10 4.2.7.2.686 [id number] General acute hospital 2023-06-04 16:00:39 2023-06-04 16:00:39 Outpatient [facility] [id number] Henry Contreras 2023-05-24 15:38:52 2023-05-24 15:38:52 Outpatient [facility] [id number] Henry Contreras 2023-05-22 00:00:00 2023-05-22 00:00:00 Letter (Out) Neurology [facility] 1.2840.114 350.1.13.10 4.2.7.2.686 [id number] General acute hospital 2023-05-20 00:00:00 2023-05-20 00:00:00 Orders Only Doctor Unassigned, [place] [facility] 1.840.114 350.1.13.10 4.2.7.2.686 [id number] General acute hospital 2023-05-17 15:07:14 2023-05-17 15:07:14 Outpatient [facility] [id number] Henry Contreras 2023-03-02 12:27:43 2023-03-02 12:27:43 Outpatient [facility] [id number] Henry Contreras 2023-01-09 17:11:26 2023-01-09 17:11:26 Outpatient [facility] [id number] Henry Contreras 2022-11-04 14:04:00 2022-11-05 11:09:00 Emergency JESS FALCON [facility] [id number] [facility] 2022-09-24 12:33:00 2022-09-24 12:51:00 Emergency Heri Snow [facility] 1.840.114 350.1.13.10 4.2.7.2.686 [id number] General acute hospital 2022-09-22 00:00:00 2022-09-22 00:00:00 Nurse Triage Marisa barclay Madhavi G [facility] 1.0.114 350.1.13.10 4.2.7.2.686 [id number] General acute hospital 2022-09-18 10:09:00 2022-09-19 14:28:00 Inpatient EM Marly Mendenhall [facility] OBSE [id number] [facility] 2022-09-16 22:50:00 2022-09-17 01:40:00 Emergency EM Asim Jack [facility] FABI [id number] [facility] 2022-09-14 14:52:00 2022-09-15 14:00:00 Inpatient EM Vladimir Forbes [facility] TELE [id number] 75 [facility] 2022-09-13 09:34:00 2022-09-13 13:00:00 Emergency EM Brad Woodall [facility] FABI [id number] [facility] 2022-09-10 23:39:00 2022-09-11 11:28:00 Emergency EM Russel Sewell [facility] [id number] [facility] 2022-09-10 18:57:00 2022-09-10 20:20:00 Emergency Mariana Morfinju [facility] .840.114 350.1.13.10 4.2.7.2.686 [id number] General acute hospital 2022-09-10 18:57:00 2022-09-10 20:20:00 Emergency Arron SANDRITA KEY [facility] E[facility] [id number] General acute hospital 2022-09-09 20:45:00 2022-09-09 22:46:00 Emergency Arron SANDRITA KEY [facility] E[facility] [id number] General acute hospital 2022-09-09 20:45:00 2022-09-09 22:46:00 Emergency Sandrita [facility] 1.840.114 350.1.13.10 4.2.7.2.686 [id number] General acute hospital 2022-09-06 18:09:00 2022-09-07 00:51:00 Emergency X DG TAYO [facility] E[facility] [id number] General acute hospital 2022-09-06 18:09:00 2022-09-07 00:51:00 Emergency Tayo Boyd [facility] 1..114 350.1.13.10 4.2.7.2.686 [id number] General acute hospital 2022-08-21 14:11:33 2022-08-21 14:11:33 Outpatient [facility] [id number] Henry Contreras 2022-07-17 15:03:48 2022-07-17 15:03:48 Outpatient [facility] [id number] Henry Contreras 2021-10-02 15:56:00 2021-10-02 19:00:00 Emergency X JAVED FRANK [facility] E[facility] [id number] General acute hospital 2021-10-02 15:56:00 2021-10-02 19:00:00 Emergency Javed Frank [facility] 1.840.114 350.1.13.10 4.2.7.2.686 [id number] General acute hospital 2021-05-05 13:22:00 2021-05-05 14:48:00 Emergency X DEON NUNEZ [facility] ERT [id number] General acute hospital 2021-05-05 13:22:00 2021-05-05 14:48:00 Emergency Deon Nunez [facility] 1.84.114 350.1.13.10 4.2.7.2.686 [id number] General acute hospital 2021-05-05 00:00:00 2021-05-05 00:00:00 Orders Only Doctor Unassigned, [place] [facility] 1.2.840.114 350.1.13.10 4.2.7.2.686 [id number] General acute hospital 2019-12-15 17:11:56 2019-12-15 18:04:00 Emergency Kp Gilliland [facility] 1.2.840.114 350.1.13.10 4.2.7.2.686 [id number] 2019-12-15 17:11:56 2019-12-15 18:04:00 Emergency Kp Gilliland [facility] 1.2.840.114 350.1.13.10 4.2.7.2.686 [id number] General acute hospital 2019-12-15 17:11:56 2019-12-15 17:11:56 Emergency X Kp GILLILAND [facility] E[facility] [id number] General acute hospital 2019-10-25 18:31:31 2019-10-25 19:21:00 Emergency Kristin Miller [facility] 1.2.840.114 350.1.13.10 4.2.7.2.686 [id number] 2019-10-25 18:31:31 2019-10-25 19:21:00 Emergency Kristin Miller [facility] 1.2.840.114 350.1.13.10 4.2.7.2.686 [id number] General acute hospital 2019-10-25 18:31:31 2019-10-25 18:31:31 Emergency X KRISTIN MILLER [facility] E[facility] [id number] General acute hospital 2019-08-13 13:30:00 2019-08-13 14:36:00 Emergency Floridalma Evans [facility] 1.2.840.114 350.1.13.10 4.2.7.2.686 [id number] 2019-08-13 13:30:00 2019-08-13 14:36:00 Emergency Floridalma Evans [facility] 1.2.840.114 350.1.13.10 4.2.7.2.686 [id number] General acute hospital 2019-08-13 13:30:00 2019-08-13 14:36:00 Emergency X FLORIDALMA EVANS [facility] E[facility] [id number] General acute hospital 2019-07-22 13:42:11 2019-07-22 19:02:00 Emergency Unknown, Attending Lisa Morfin [facility] 1.2.840.114 350.1.13.10 4.2.7.2.686 [id number] 2019-07-22 13:42:11 2019-07-22 19:02:00 Emergency X LSIA MORFIN [facility] E[facility] [id number] General acute hospital 2019-07-22 13:42:11 2019-07-22 19:02:00 Emergency Unknown, Attending Lisa Morfin [facility] 1.2.840.114 350.1.13.10 4.2.7.2.686 [id number] General acute hospital 2019-07-13 20:17:19 2019-07-13 21:48:00 Emergency X HENRY OWEN [facility] E[facility] [id number] General acute hospital 2019-07-13 20:17:19 2019-07-13 21:48:00 Emergency Henry Owen [facility] 1.2.840.114 350.1.13.10 4.2.7.2.686 [id number] General acute hospital 2019-07-10 14:26:03 2019-07-10 16:33:00 Emergency X DEBBIE PAYTON [facility] E[facility] [id number] General acute hospital 2019-07-10 14:26:03 2019-07-10 16:33:00 Emergency Debbie Payton [facility] 1.2.840.114 350.1.13.10 4.2.7.2.686 [id number] General acute hospital 2019-07-04 19:09:02 2019-07-04 22:51:00 Emergency X LISA MORFIN [facility] E[facility] [id number] General acute hospital 2019-06-30 10:33:08 2019-06-30 13:10:00 Emergency X DEON NUNEZ [facility] E[facility] [id number] General acute hospital 2019-05-25 11:58:19 2019-05-25 15:37:00 Emergency X DEON NUNEZ [facility] E[facility] [id number] General acute hospital 2019-04-09 22:29:37 2019-04-09 23:28:00 Emergency X FLORIDALMA EVANS [facility] E[facility] [id number] General acute hospital 2019-01-21 18:38:01 2019-01-21 19:59:00 Emergency Le Ramirez [facility] 1.2.840.114 350.1.13.10 4.2.7.2.686 [id number] 2019-01-21 18:38:01 2019-01-21 19:59:00 Emergency Le Ramirez [facility] 1.2.840.114 350.1.13.10 4.2.7.2.686 [id number] General acute hospital Results Test Description Test Time Test Comments Results Result Co mments Source T3 [id number] 04:20:00* Test Item Value Reference Range Interpretation Comme nts T3UP (test code = T3UP) 40.9 % 23.5-40.5 H Thyroxine (T4) free index in Serum or [id number] 04:19:00* Test Item Value Reference Range Interpretation Comme nts Thyroxine (T4) free index in Serum or Plasma (test code = 49417-3) 1.05 ng/dL 0.78-2.19 [facility]Thyroid hormone uptake (T-uptake) in Serum or P 2023-11-24 04:18:00* Test Item Value Reference Range Interpretation Comme nts Thyroid hormone uptake (T-up take) in Serum or Plasma (test code = 91836-2) 40.9 % 23.5-40.5 H [facility])URINE DRUG [id number] 00:43:00* Test Item Value Reference Range Interpretation [...] abuse 5 panel - Urine by Screen [id number] 00:40:00 NegativeNegativeNegativeNegativeNegativeNegativeNegative[facility] [place])[id number] 00:33:00* Test Item Value Reference Range Interpretation [...] /HPF 0-2 Urinalysis panel - Urine by Dkln4589-15-02 00:33:00* Test Item Value Reference Range Interpretation Comme nts Ketones [Presence] in Urine (test code = 37139-7) 15 MG/DL NEG N pH of Urine (test code = 2756-5) 5.5 1 5.0-7.5 N Urobilinogen [Presence] in U rine (test code = 63367-2) 0.2 EU/DL 0.2-1.0 N Specific gravity of Urine (t est code = 2965-2) 1.013 1 1.0-1.025 N Leukocytes [Presence] in Uri ne sediment by Light microscopy (test code = 00007-3) 10 /HPF 0.0-5.0 H Erythrocytes [Presence] in U rine sediment by Light microscopy (test code = 42335-2) 2 /HPF 0.0-2.0 N [facility])[id number] 22:47:00* Test Item Value Reference Range Interpretation Comme nts FOLATE (test code = FOLATE) 8.9 ng/mL 2.76-20.0 THYROID STIMULATION [id number] 22:47:00* Test Item Value Reference Range Interpretation Comme nts TSH (test code = TSH) 6.62 UIU/ML 0.465-4.68 H VITAMIN [id number] 22:47:00* Test Item Value Reference Range Interpretation Comme nts B12 (test code = B12) 880 pg/mL 239-931 Cobalamin (Vitamin B12) [Mass/volume] in Aesxh3162-25-40 22:47:00* Test Item Value Reference Range Interpretation Comme nts Cobalamin (Vitamin B12) [Mass/volume] in Serum or Plasma (test code = 2132-9) 880 pg/mL 239.0-931.0 N [facility])Folate [Mass/volume] in Serum or Ebkgte8896-10-14 22:47:00* Test Item Value Reference Range Interpretation Comme nts Folate [Mass/volume] in Seru m or Plasma (test code = 2284-8) 8.9 ng/mL 2.76-20.0 [facility])Thyrotropin in Serum or Ixzesx5435-26-09 22:47:00* Test Item Value Reference Range Interpretation Comme nts Thyrotropin in Serum or Plas ma (test code = 39590-9) 6.62 UIU/ML 0.465-4.68 H [facility])ER SCREEN FOR HIV / 22:46:00* Test Item Value Reference Range Interpretation Comme nts HIV 1/2 AB (test code = SCRN HIV) NEGATIVE NEGATIVE This test is us ed for SCREENING purposes only. All reactive results are prelimenary and confirmation results will follow. HIV 1+2 Ab [Units/volume] in Vnifc9404-53-43 22:45:[facility]HEPATITIS C ANTIBODY [id number] 22:28:00* Test Item Value Reference Range Interpretation Comme nts SCRN HCV (test code = SCRN HCV) NEGATIVE NEGATIVE Hepatitis C Anti body test is for screening purposes only. All reactives will be confirmed by additional testing. Hepatitis C virus Ab [Presence] in Vjmlq2449-24-20 22:27:00[facility])B-HCG QUAL (KIT)2023-11-23 22:01:00* Test Item Value Reference Range Interpretation Comme [facility] HCGQUAL (test code = HCGQUAL) NEGATIVE NEGATIVE URINE: NEGATIVE = < 20 mIU/ML; POSITIVE= >/= 20 mIU/ML SERUM: NEGATIVE = < 10 mIU/ML; POSITIVE= >/= 10 mIU/ML SOURCE (test code = SOURCE) SERUM HCG INTERNAL POSITIVE CNTRL (test code = HCGIPC) PASS PASS HCG LOT # (test code = UHCGLOT) [id number] HCG EXPIRATION DATE (test code = UHCGEXP) Choriogonadotropin.beta subunit ( nimi4943-17-10 22:01:00* Test Item Value Reference Range Interpretation Comme nts Specimen source [Identifier] of Body fluid (test code = 76879-4) SERUM N Reagent Lot number (test cod e = 65895-5) 1 N [facility])CT HEAD W/O [id number] 22:00:00 [facility] : 1975 Sex: F[address] [address]KBAUBRQMQR IMAGING REPORTPatient Name: ROBERT CONCEPTIONDate of Service: [id number]: 48 Sex: F Order #: [id number] Room: ERSDOB: 1975 X-Ray Number: [id number] Record Number: [id number] Hospital Number: [id number] Physician: LAWRENCE MEJIASOrdering Physician: LAWRENCE MEJIASPROCEDURE: CTHEAD [...] 21:59:03CT Head and Orbit - bilateral WO kxqvmslw5010-53-10 21:59:03 ORDER 1400: CT HEAD W/O CONT (LOINC: 39699-7)ORDER DATE: November 24, 2023 12:50:00 AM [facility]CT ABDOMEN/PELVIS [id number] 21:54:00 [facility] : 1975 [facility] [place], [place] [address]HAAMZWFABT IMAGING REPORTPatient Name: ROBERT CONCEPTIONDate of Service: 46-36-8474Wsf: 48 Sex: F Order #: [id number] Room: ERSDOB: 1975 X-Ray Number: [id number] Record Number: [id number] Hospital Number: [id number] Physician: LAWRENCE MEJIASOrdering Physician: LAWRENCE MEJIASPROCEDURE: CT [...] YUNIOR MCKEON 2023-11-23 21:53:03 CT Abdomen and Phobht7742-00-69 21:53:03ORDER 1500: CT ABDOMEN/PELVIS WITHOUT (LOINC: 57942-7)ORDER DATE: November 24, 2023 12:50:00 AM [facility])[id number] 21:31:00* Test Item Value Reference Range Interpretation [...] 70-99 Fasting glucos e normal <100 MG/DL- [employer] [place] [employer] recommendation CALCIUM (test code = [...] of age is not validated by the platen press operator apprentice and may not represent the patients true [...] should be used in the calculation". CREATINE [id number] 21:31:00* Test Item Value Reference Range Interpretation Comme nts CK (test code = CK) 115 U/L 30-135 BLOOD ALCOHOL (ETOH)2023-11-23 21:31:00* Test Item Value Reference Range Interpretation Comme nts ALCOHOL BLOOD LEVEL (test code = ALC BLD) <10 MG/DL 0-10 Results ar e to be used for medical purposes (treatment) only. Not intended for non medical purposes. Ethanol [Mass/volume] in Bqygw1880-72-34 21:30:00* Test Item Value Reference Range Interpretation Comme nts Ethanol [Mass/volume] in Blo od (test code = 5640-8) <10 0.0-10.0 N [facility])Creatine kinase isoenzymes [interpretation] in 2023-11-23 21:30:00* Test Item Value Reference Range Interpretation Comme nts Creatine kinase isoenzymes [interpretation] in Serum or Plasma Narrative (test code = 90667-1) 115 U/L 30.0-135.0 N [facility])Comprehensive metabolic 2000 panel - Serum or P 2023-11-23 21:27:00* Test Item Value Reference Range Interpretation Comme nts Sodium [Moles/volume] in Blood (test code = 2947-0) 137 MMOL/L 137.0-145.0 N Potassium [Moles/volume] in Blood (test code = 6298-4) 4.2 MMOL/L 3.5-5.1 N Chloride [Moles/volume] in Blood (test code = 2069-3) 100 MMOL/L 98.0-107.0 N Carbon dioxide, total [Moles/volume] in Blood (test code = 93761-8) 24 MMOL/L 22.0-30.0 N Urea nitrogen [Mass/volume] in Serum or Plasma (test code = 3094-0) 16 MG/DL 7.0-17.0 N Creatinine [Mass/volume] in Blood (test code = 10711-7) 0.6 MG/DL 0.7-1.2 L Glucose [Mass/volume] in Blood (test code = 2339-0) 80 MG/DL 70.0-99.0 N Calcium [Mass/volume] in Serum or Plasma (test code = 37404-8) 10.3 MG/DL 8.4-10.2 H Protein [Mass/volume] in Serum or Plasma (test code = 2885-2) 9.9 G/DL 6.3-8.2 H Albumin [Presence] in Serum or Plasma (test code = 71449-4) 4.7 G/DL 3.5-5.0 N Bilirubin direct and total panel [Mass/volume] - Serum or Plasma (test code = 74022-1) 0.8 MG/DL 0.2-1.3 N Aspartate aminotransferase [Enzymatic [...] 50 percent [- Reported] (test code = 05807-2) 113.0 mL/min/1.73m2 N Anion gap in Serum or Plasma (test code = 41246-0) 13 mmol/L 4.0-12.0 H [facility])[id number] 21:15:00* Test Item Value Reference Range Interpretation [...] 1.2-7.2 CBC W Auto Differential panel - [id number] 21:15:00* Test Item Value Reference Range Interpretation Comme nts Leukocytes other [Identifier ] in Blood by Automated count (test code = 05893-2) 4.5 K/UL 3.5-10.9 N Erythrocytes [#/volume] in B lood (test code = 88901-5) 4.91 M/UL 4.0-5.0 N Hemoglobin A/Hemoglobin.tota l in Blood (test code = 4546-8) 13.8 G/DL 11.5-15.5 N Hematocrit [Volume Fraction] of Blood (test code = 79683-0) 42.4 % 34.0-46.0 N Erythrocyte mean corpuscular volume [Entitic volume] (test code = 59443-8) 86.4 FL 80.0-98.0 N Erythrocyte mean corpuscular hemoglobin [Entitic mass] (test code = 13697-1) 28.1 PG 28.0-32.0 N Erythrocyte mean corpuscular hemoglobin concentration [Mass/volume] (test code = 79917-3) 32.5 G/DL 32.5-36.5 N Erythrocyte distribution wid th [Ratio] (test code = 46063-2) 14.9 % 11.5-14.5 H Platelets panel - Blood by Automated count (test code = 82946-5) 124 K/UL 150.0-450.0 L Platelet mean volume [Entiti c volume] in Blood by Automated count (test code = 37215-6) 10.0 FL 7.4-10.4 N Neutrophils.segmented/100 leukocytes in Blood (test code = 94071-6) 53.3 % 40.0-75.0 N Lymphocytes Variant/100 leuk ocytes in Blood (test code = 47789-4) 33.9 % 24.0-44.0 N Lymphocytes+Monocytes/100 leukocytes in Blood (test code = 4662-3) 10.0 % 0.0-13.0 N Eosinophils [#/volume] in Bl ood (test code = 00679-8) 2.2 % 0.0-4.0 N Basophils [#/volume] in Bloo d (test code = 86154-7) 0.4 % 0.0-2.0 N Immature granulocytes/100 leukocytes in Blood (test code = 65668-7) 0.2 % 0.0-1.0 N Nucleated erythrocytes [#/vo lume] in Blood (test code = 70923-2) 0 /100 WBC N Neutrophils [#/volume] in Bl ood (test code = 99334-4) 2.4 K/UL 1.2-7.2 N [facility] ([place])PAP TEST, THINPREP, [id number] 16:02:24* Test Item Value Reference Range Interpretation Comme nts SOURCE: (test code = 8001) Cervical/Endoce rvical SLIDES: (test code = 8011) 1 LMP: (test code = 8021) SEE NOTE POST MENOPAUSAL SPECIMEN ADEQUACY: (test code = 57565) (NOTE) Satisfactory for evaluation. Endocervical cells/transformation zone component present. INTERPRETATION: (test code = 19880) NILM/NO EPITH. ABNORMALITY;SEE BELOW --- - NEGATIVE FOR INTRAEPITHELIAL LESION OR MALIGNANCY (NILM) ---- MECHANICAL MAINTENANCE FOREMAN : (test code = 8101) Jami Smalls LOCATION: (test code = 00717) (NOTE) Specimens proces sed and interpreted at Clinical [facility], [address] [place] [address], , CLIA: [id number] CPT: (test code = 8140) (NOTE) 15227 UNLESS OTH ERWISE INDICATED, COMPUTER AIDED AND MECHANICAL MAINTENANCE FOREMAN SCREENING PERFORMED. The Pap test is a screening test with an inherent, but low probability of error. Your patient should be reminded to consult you immediately if she experiences any suspicious signs or symptoms, regardless of her Pap test result. An alternate report format containing images or consolidated prior Pap history is available as applicable. HPV HIGH RISK WITH GENOTYPE, [id number] 15:53:52* Test Item Value Reference Range Interpretation Comme nts HPV HIGH RISK INTERP (test code = 60706) NEGATIVE NEGATIVE HPV 16 (test code = 25167) NEGATIVE HPV 18 (test code = 24010) NEGATIVE HPV, HR, OTHER GENOTYPES (test code = 28583) NEGATIVE Testing methodol ogy is real-time PCR [...] TESTING PERFORMED AT [facility] [address] [place] [address] IV THERAPY NURSE: JATIN FELIPE M.D. CLIA NUMBER [id number] [facility] [place]. [id number] HPV HIGH RISK WITH GENOTYPE, [id number] 00:00:00* Test Item Value Reference Range Interpretation Comme nts HPV HIGH RISK INTERP (test c ode = 58618) NEGATIVE HPV 16 (test code = 83456) NEGATIVE HPV 18 (test code = 72818) NEGATIVE HPV, HR, OTHER GENOTYPES (te st code = 98735) NEGATIVE PDFE (test code = PDFReport) PDF Henry ContrerasPAP TEST, THINPREP, [id number] 00:00:00* Test Item Value Reference Range Interpretation Comme nts SOURCE: (test code = 8001) Cervical/Endocervical SLIDES: (test code = 8011) 1 LMP: (test code = 8021) SEE NOTE SPECIMEN ADEQUACY: (test code = 11096) (NOTE) INTERPRETATION: (test code = 75100) NILM/NO EPITH. 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: (test code = 8101) [facility] LOCATION: (test code = 54953) (NOTE) CPT: (test code = 8140) (NOTE) Henry ContrerasHPV HIGH RISK WITH GENOTYPE, [id number] 00:00:00* Test Item Value Reference Range Interpretation Comme nts HPV HIGH RISK INTERP (test c ode = 71204) NEGATIVE HPV 16 (test code = 68563) NEGATIVE HPV 18 (test code = 60019) NEGATIVE HPV, HR, OTHER GENOTYPES (te st code = 95873) NEGATIVE PDFE (test code = PDFReport) PDF Henry ContrerasPAP TEST, THINPREP, [id number] 00:00:00* Test Item Value Reference Range Interpretation Comme nts SOURCE: (test code = 8001) Cervical/Endocervical SLIDES: (test code = 8011) 1 LMP: (test code = 8021) SEE NOTE SPECIMEN ADEQUACY: (test code = 38815) (NOTE) INTERPRETATION: (test code = 05241) NILM/NO EPITH. 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: (test code = 8101) Jami Smalls LOCATION: (test code = 81895) (NOTE) CPT: (test code = 8140) (NOTE) Henry ContrerasPAP TEST, THINPREP, IMAGED [ADDED]2023-10-10 00:00:00* Test Item Value Reference Range Interpretation Comme nts SOURCE: (test code = 8001) Unspecified SLIDES: (test code = 8011) 2 LMP: (test code = 8021) NOT GIVEN SPECIMEN ADEQUACY: (test code = 61093) (NOTE) INTERPRETATION: (test code = 35196) UNSATISFACTORY; SEE BELOW OTHER COMMENTS: (test code = 8081) (NOTE) MECHANICAL MAINTENANCE FOREMAN: (test code = 8101) Jose Bustillos QC TECHNOLOGIST: (test code = 8111) RAUL Wilde(ASCP),IAC LOCATION: (test code = 35521) (NOTE) CPT: (test code = 8140) (NOTE) Henry F AustinHPV HIGH RISK IF ASC/LSIL, THINPREP [ADDED]2023-10-10 00:00:00* Test Item Value Reference Range Interpretation Comme nts HPV HIGH RISK IF ASC/LSIL, THINPREP (test code = 98113) CRITERIA NOT MET Henry F AustinPAP TEST, THINPREP, IMAGED [ADDED]2023-10-10 00:00:00* Test Item Value Reference Range Interpretation Comme nts SOURCE: (test code = 8001) Unspecified SLIDES: (test code = 8011) 2 LMP: (test code = 8021) NOT GIVEN SPECIMEN ADEQUACY: (test code = 28165) (NOTE) INTERPRETATION: (test code = 29793) UNSATISFACTORY; SEE BELOW OTHER COMMENTS: (test code = 8081) (NOTE) MECHANICAL MAINTENANCE FOREMAN: (test code = 8101) Jose Bustillos QC TECHNOLOGIST: (test code = 8111) RAUL Wilde(ASCP),IAC LOCATION: (test code = 75298) (NOTE) CPT: (test code = 8140) (NOTE) Henry F AustinHPV HIGH RISK IF ASC/LSIL, THINPREP [ADDED]2023-10-10 00:00:00* Test Item Value Reference Range Interpretation Comme nts HPV HIGH RISK IF ASC/LSIL, THINPREP (test code = 64097) CRITERIA NOT MET Henry F AustinGONORRHEA, NAAT, THINPREP [ADDED]2023-10-08 00:00:00* Test Item Value Reference Range Interpretation Comme nts GONORRHEA, NAAT, THINPREP (t est code = 68174) NEGATIVE Henry ContrerasCHLAMYDIA, NAAT, THINPREP [ADDED]2023-10-08 00:00:00* Test Item Value Reference Range Interpretation Comme nts CHLAMYDIA, NAAT, THINPREP (t est code = 94547) NEGATIVE PDFE (test code = PDFReport) PDF Henry ContrerasGONORRHEA, NAAT, THINPREP [ADDED]2023-10-08 00:00:00* Test Item Value Reference Range Interpretation Comme nts GONORRHEA, NAAT, THINPREP (t est code = 23979) NEGATIVE Henry ContrerasCHLAMYDIA, NAAT, THINPREP [ADDED]2023-10-08 00:00:00* Test Item Value Reference Range Interpretation Comme nts CHLAMYDIA, NAAT, THINPREP (t est code = 35041) NEGATIVE PDFE (test code = PDFReport) PDF Henry Griffin, THIRD [id number] 08:14:44* Test Item Value Reference Range Interpretation Comme nts TSH, THIRD GENERATION (test code = 2821) 5.200 UIU/ML 0.400-4.100 H UNLESS OTHERWISE INDICATED, ALL TESTING PERFORMED AT [facility] [address] [place] [address] IV THERAPY NURSE: JATIN FELIPE M.D. CLIA NUMBER [id number] [facility] [place]. [id number] 00:00:00* Test Item Value Reference Range Interpretation Comme nts TSH, THIRD GENERATION (test code = 2821) 5.200 UIU/ML Henry [id number] 00:00:00* Test Item Value Reference Range Interpretation Comme nts TSH, THIRD GENERATION (test code = 2821) 5.200 UIU/ML Henry MonroyH, THIRD [id number] 23:53:27* Test Item Value Reference Range Interpretation Comme nts TSH, THIRD GENERATION (test code = 2821) 11.100 UIU/ML 0.400-4.100 H COMPREHENSIVE METABOLIC [id number] 23:46:03* Test Item Value Reference Range Interpretation [...] 13 U/L 5-40 CBC W/AUTO DIFF WITH [id number] 08:48:44* Test Item Value Reference Range Interpretation [...] 0.00-0.10 ABS NUCLEATED RBCS (test code = 47877) 0.00 K/UL 0.00-0.11 UNLESS OTHER MONTOYA INDICATED, ALL TESTING PERFORMED AT [facility] [address] [place] [address] IV THERAPY NURSE: JATIN FELIPE M.D. CLIA NUMBER [id number] [facility] [place]. [id number] 00:00:00* Test Item Value Reference Range Interpretation Comme nts TSH, THIRD GENERATION (test code = 2821) 11.100 UIU/ML Henry F BenCBC W/AUTO [id number] 00:00:00* Test Item Value Reference Range Interpretation [...] ABS NUCLEATED RBCS (test cod e = 02135) 0.00 K/UL Henry ContrerasCOMPREHENSIVE METABOLIC [id number] 00:00:00* Test Item Value Reference Range Interpretation Comme nts GLUCOSE (test code = 2217) 97 MG/DL BUN (test code = 2208) 7 MG/DL CREATININE (test code = 2214) 0.61 MG/DL eGFR (2020 CKD-EPI) (test code = 35803) 110 ML/MIN/1.73 CALC BUN/CREAT (test code = [...] (test code = 2219) 13 U/L Henry [id number] 00:00:00* Test Item Value Reference Range Interpretation Comme nts TSH, THIRD GENERATION (test code = 2821) 11.100 UIU/ML Henry ContrerasCBC W/AUTO [id number] 00:00:00* Test Item Value Reference Range Interpretation [...] ABS NUCLEATED RBCS (test cod e = 17009) 0.00 K/UL Henry ContrerasCOMPREHENSIVE METABOLIC [id number] 00:00:00* Test Item Value Reference Range Interpretation Comme nts GLUCOSE (test code = 2217) 97 MG/DL BUN (test code = 8) 7 MG/DL CREATININE (test code = 2214) 0.61 MG/DL eGFR (2020 CKD-EPI) (test code = 57573) 110 ML/MIN/1.73 CALC BUN/CREAT (test code = [...] (test code = 2219) 13 U/L Henry Contrer[id number] 01:13:06* Test Item Value Reference Range Interpretation Comme nts TRANSFERRIN (test code = 4936) 315 MG/DL 200-360 UNLESS OTHERWISE INDICATED, ALL TESTING PERFORMED AT [facility] [address] [place] [address] IV THERAPY NURSE: JATIN FELIPE M.D. CLIA NUMBER [id number] [facility] [place]. [id number] LIPID [id number] 01:12:48* Test Item Value Reference Range Interpretation [...] SPECIMENS. FOR MOREINFORMATION, SEE CLIENT ANNOUNCEMENT AT [email or web address] /CalcLDL-C RISK RATIO LDL/HDL (test code = 2238) 1.34 RATIO <3.22 COMPREHENSIVE METABOLIC [id number] 01:12:48* Test Item Value Reference Range Interpretation Comme nts GLUCOSE (test code = 2216) 92 MG/DL 70-99 BUN (test code = 2207) 15 MG/DL 6-20 CREATININE (test code = 2213) 0.65 MG/DL 0.60-1.30 eGFR (2020 CKD-EPI) (test code = 41472) 108 ML/MIN/1.73 >60 CALC BUN/CREAT (test code [...] IRON BINDING CAPACITY AND IRON AND % [id number] 01:12:48* Test Item Value Reference Range Interpretation Comme nts IRON, SERUM (test code = 222) 51 UG/DL 37-145 UNSATURATED IBC (test code = 82452) 356 UG/DL 112-347 H CALC TOTAL IBC (test code = 2076) 407 UG/DL 250-450 CALC % IRON SAT (test code = 2078) 13 % 20-50 L [id number] 00:59:24* Test Item Value Reference Range Interpretation Comme nts FERRITIN (test code = 2074) 20 NG/ML 13-200 LIPID [id number] 00:00:00* Test Item Value Reference Range Interpretation Comme nts CHOLESTEROL (test code = 2210) 191 MG/DL TRIGLYCERIDES (test code = 2232) 89 MG/DL HDL CHOLESTEROL (test code = 2220) 74 MG/DL CALC LDL CHOL (test code = 2237) 99 MG/DL RISK RATIO LDL/HDL (test cod e = 2238) 1.34 RATIO Henry ContrerasCOMPREHENSIVE METABOLIC [id number] 00:00:00* Test Item Value Reference Range Interpretation Comme nts GLUCOSE (test code = 2217) 92 MG/DL BUN (test code = 2208) 15 MG/DL CREATININE (test code = 2214) 0.65 MG/DL eGFR (2020 CKD-EPI) (test code = 45081) 108 ML/MIN/1.73 CALC BUN/CREAT (test code = [...] code = 2219) 7 U/L Henry Quiles AustinIRON BINDING CAPACITY AND IRON AND % [id number] 00:00:00* Test Item Value Reference Range Interpretation Comme nts IRON, SERUM (test code = 2221) 51 UG/DL UNSATURATED IBC (test code = ) 356 UG/DL CALC TOTAL IBC (test code = 2076) 407 UG/DL CALC % IRON SAT (test code = 2078) 13 % Henry F [id number] 00:00:00* Test Item Value Reference Range Interpretation Comme nts FERRITIN (test code = 2075) 20 NG/ML Henry [id number] 00:00:00* Test Item Value Reference Range Interpretation Comme nts TRANSFERRIN (test code = 4936) 315 MG/DL Henry ContrerasLIPID [id number] 00:00:00* Test Item Value Reference Range Interpretation Comme nts CHOLESTEROL (test code = 2210) 191 MG/DL TRIGLYCERIDES (test code = 2232) 89 MG/DL HDL CHOLESTEROL (test code = 2220) 74 MG/DL CALC LDL CHOL (test code = 2237) 99 MG/DL RISK RATIO LDL/HDL (test cod e = 2238) 1.34 RATIO Henry ContrerasCOMPREHENSIVE METABOLIC [id number] 00:00:00* Test Item Value Reference Range Interpretation Comme nts GLUCOSE (test code = 2217) 92 MG/DL BUN (test code = 2208) 15 MG/DL CREATININE (test code = 2214) 0.65 MG/DL eGFR (2020 CKD-EPI) (test code = 40744) 108 ML/MIN/1.73 CALC BUN/CREAT (test code = [...] ContrerasIRON BINDING CAPACITY AND IRON AND % [id number] 00:00:00* Test Item Value Reference Range Interpretation Comme nts IRON, SERUM (test code = 2222) 51 UG/DL UNSATURATED IBC (test code = 15260) 356 UG/DL CALC TOTAL IBC (test code = 2077) 407 UG/DL CALC % IRON SAT (test code = 2079) 13 % Henry [id number] 00:00:00* Test Item Value Reference Range Interpretation Comme shaina FERRITIN (test code = 2075) 20 NG/ML Henry C[id number] 00:00:00* Test Item Value Reference Range Interpretation Comme shaina TRANSFERRIN (test code = 4936) 315 MG/DL Henry ContrerasHEMOGLOBIN [id number] 03:08:40* Test Item Value Reference Range Interpretation Comme nts HEMOGLOBIN A1c (test code = 57911) 5.5 % 4.2-5.6 CBC W/AUTO DIFF WITH [id number] 02:29:36* Test Item Value Reference Range Interpretation [...] = 1065) 0.0 /100 WBC'S See_Comment [Automated [employer] ge] The system which generated this result [...] 0.00-0.10 ABS NUCLEATED RBCS (test code = 13334) 0.00 K/UL 0.00-0.11 CBC W/AUTO [id number] 00:00:00* Test Item Value Reference Range Interpretation [...] ABS NUCLEATED RBCS (test cod e = 34085) 0.00 K/UL Henry ContrerasHEMOGLOBIN [id number] 00:00:00* Test Item Value Reference Range Interpretation Comme nts HEMOGLOBIN A1c (test code = 21027) 5.5 % Henry ContrerasCBC W/AUTO [id number] 00:00:00* Test Item Value Reference Range Interpretation [...] ABS NUCLEATED RBCS (test cod e = 82505) 0.00 K/UL Henry ContrerasHEMOGLOBIN [id number] 00:00:00* Test Item Value Reference Range Interpretation Comme nts HEMOGLOBIN A1c (test code = 14553) 5.5 % Henry Quiles AustinDRUGS OF [id number] 05:03:00* Test Item Value Reference Range Interpretation [...] 200 ng/mL Opiates 300 ng/mL URINALYSIS WITH [id number] 04:56:00* Test Item Value Reference Range Interpretation [...] (test code = USPERM) /HPF NONE URINE [id number] 04:53:00* Test Item Value Reference Range Interpretation [...] the FDA and the [employer] [place] [employer] (CAP) are more stringent than those required for this test. Therefore, the result should be interpreted with caution and close attention to other clinical and epidemiological data [id number] 16:00:00* Test Item Value Reference Range Interpretation Comme nts SALICYLATE (test code = 94B) <3.0 mg/dL 15.0-30.0 L LIVER [id number] 15:49:00* Test Item Value Reference Range Interpretation [...] code = 31A) <7 IU/L 10-49 L [id number] 15:48:00* Test Item Value Reference Range Interpretation [...] to interpret this result as normal/abnormal. 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 Old healed fractures of the distal tibia and fibular noted.Soft tissues: Unremarkable.IMPRESSION: No acute findings.Electronically signed by: Nikko Santiago MD 11/04/2022 3:10 PM CDT [id number] BEDSIDE [id number] 11:51:00* Test Item Value Reference Range Interpretation Comme nts GLUCOSE BEDSIDE TESTING (kraen t code = GLUBED) 79 MG/DL 70-119 N GLUCOSE BEDSIDE [id number] 06:23:00* Test Item Value Reference Range Interpretation Comme nts GLUCOSE BEDSIDE TESTING (karen t code = GLUBED) 80 MG/DL 70-119 N BASIC METABOLIC [id number] 05:12:00* Test Item Value Reference Range Interpretation [...] <2.0 indicates None DetectedPerformed At: [facility] [address] [id number] Michael Reeves MD Ph:[phone] GLUCOSE BEDSIDE [id number] 19:51:00* Test Item Value Reference Range Interpretation Comme nts GLUCOSE BEDSIDE TESTING (karen t code = GLUBED) 129 MG/DL 70-119 H OSMOLALITY [id number] 17:56:00* Test Item Value Reference Range Interpretation Comme nts OSMOLALITY SERUM (test code = OSMO) 269 mOsm/kg 275-300 L THYROID STIMULATING [id number] 17:56:00* Test Item Value Reference Range Interpretation Comme nts THYROID STIMULATING HORMONE (test code = TSH) 4.190 mc IU/ML 0.340-4.820 N GLUCOSE BEDSIDE [id number] 15:49:00* Test Item Value Reference Range Interpretation [...] code = VALP) 37.5 mcG/ML 50.0-100.0 L [id number] 14:26:00* Test Item Value Reference Range Interpretation Comme nts AMMONIA (test code = AMM) 29.0 mcMOL/L 11.0-32.0 N GLUCOSE BEDSIDE [id number] 11:51:00* Test Item Value Reference Range Interpretation Comme [facility] GLUCOSE BEDSIDE TESTING (karen t code = GLUBED) 88 MG/DL 70-119 N GLYCOSYLATED HEMOGLOBIN (HA1C)2022-09-18 06:53:00* Test Item Value Reference Range Interpretation Comme [facility] GLYCOSYLATED HEMOGLOBIN (HA1 C) (test code = GLYHGB) 5.2 % IS-A1C 4.5-5.6 N ESTIMATED AVERAGE [id number] 06:53:00* Test Item Value Reference Range Interpretation [...] to interpret this result as normal/abnormal. UR [id number] 21:28:00* Test Item Value Reference Range Interpretation Comme nts UR SODIUM RANDOM (test code = JESUSITA) 93 mmol/L 40-200 N UR POTASSIUM RANDOM (test code = KU) 54.8 mmol/L 25-125 N NO ESTABLISHED NORMAL RANGES FOR RANDOM SPECIMENS. UR CHLORIDE RANDOM (test code = CLU) 164 mmol/L 110-150 H UR OSMOLALITY [id number] 21:28:00* Test Item Value Reference Range Interpretation Comme nts UR OSMOLALITY RANDOM (test c ode = OSMOU) 475 mOsm/kg 100-1400 N CBC W/O [id number] 20:05:00* Test Item Value Reference Range Interpretation [...] = MPV) 9.5 fL 6.8-11.2 N LACTIC [id number] 19:35:00* Test Item Value Reference Range Interpretation Comme nts LACTIC ACID (test code = LACT) 1.0 mmol/L 0.4-2.0 N HCG SERUM [id number] 19:31:00* Test Item Value Reference Range Interpretation Comme nts HCG SERUM QUAL (test code = HCGQL) Negative SCREEN NEG - CT HEAD/BRAIN W/O [id number] 18:59:00 [facility] : 1975 Sex: F Patient Name: BHUMIKA JONES Unit No: [id number] EXAMS: CPT CODE: [id number] CT HEAD/BRAIN W/O CONT 20012 Location: H3 CT head, conducted on 09/17/22 at 1837 hours COMPARISON EXAMS:Head CT exam of09/17/22 at 00:06 hours TECHNIQUE: CT examination of the brain was performed without contrast on [facility] scanner. Scanning conducted from skull base [...] MALA Marie(R)(CT) CTDI: DLP: Trnscrpt: 09/17/2022 (1858) [email or web address] DENIZ Lugo NAME: ROBERT [address] PHYS: Valentina Mattson MD, [place] [address] : 1975 AGE: 47 SEX: F LOC: Ginger.ERMED 20 PHONE #: [phone] EXAM DATE: 09/17/2022 STATUS: ADM IN FAX #: [phone] RAD #: D/C DT PAGE 1 Signed Report Patient Name: ROBERTMILL HALL Unit No: [id number] EXAMS: CPT CODE: [id number] CT HEAD/BRAIN W/O CONT 13345 (Continued) Orig Print D/T: S: 09/17/2022 (190) DENIZ Lugo NAME: ROBERT[address] PHYS: Valentina Matt[place] [address] : 1975 AGE: 47 SEX: F LOC: B.ERMED 20 PHONE #: [phone] EXAM DATE: 09/17/2022 STATUS: ADM IN FAX #: [phone] RAD #: D/C DT PAGE 2 Signed ReportURINALYSIS [id number] 16:28:00* Test Item Value Reference Range Interpretation [...] >0 /UL NONE-SQepi DRUGS OF ABUSE SCREEN [id number] 16:28:00* Test Item Value Reference Range Interpretation [...] interpret this result as normal/abnormal. TROP-I HIGH [id number] 16:26:00* Test Item Value Reference Range Interpretation [...] and URLs may vary bymethod. BASIC METABOLIC [id number] 16:25:00* Test Item Value Reference Range Interpretation [...] interpret this result as normal/abnormal. HEPATIC FUNCTION [id number] 16:25:00* Test Item Value Reference Range Interpretation [...] ode = CK) 92 Unit/L 26-192 N [id number] 16:25:00* Test Item Value Reference Range Interpretation Comme nts LIPASE (test code = LIP) 57 Unit/L 114-286 L - CT HEAD/BRAIN W/O [id number] 00:32:00 [facility] : 1975 Sex: F Patient Name: BHUMIKA JOENS Unit No: [id number] EXAMS: CPT CODE: [id number] CT HEAD/BRAIN W/O CONT 82973 EXAM: - CT HEAD/BRAIN W/O CONT LOCATION: [...] Terry August CTDI: DLP: Trnscrpt: 09/17/2022 (003) NadiyaMKW1 [facility] NAME: JONES,BAI[address] PHYS: YASMIN Santiago Asim Jack [place] [address] : 1975 AGE: 47 SEX: F LOC: MARCOS PHONE #: [phone] EXAM DATE: 09/16/2022 STATUS: REG ER FAX #: [phone] RAD #: D/C DT PAGE1 Signed Report Patient Name: BHUMIKA JONES Unit No: [id number] EXAMS: CPT CODE: [id number] CT HEAD/BRAIN W/O CONT 43496 (Continued) Orig Print D/T: S: 09/17/2022 (0035) DENIZ Lugo NAME: ROBERT[address] PHYS: YASMIN Santiago [place] Jack [place] [address] : 1975 AGE: 47 SEX: F LOC: GregorioERS PHONE #: [phone] EXAM DATE: 09/16/2022 STATUS: REG ER FAX #: [phone] RAD #: D/C DT PAGE 2 Signed ReportTROP-I HIGH [id number] 00:13:00* Test Item Value Reference Range Interpretation [...] and URLs may vary bymethod. COMPREHENSIVE METABOLIC [id number] 00:11:00* Test Item Value Reference Range Interpretation [...] interpret this result as normal/abnormal. CBC W/AUTO [id number] 23:59:00* Test Item Value Reference Range Interpretation [...] K/mm3 0.0-0.05 N - XR CHEST 1 [id number] 23:34:00 [facility] : 1975 [place]: [place]: St: PRE -- Patient Name: BHUMIKA JONES Unit No: [id number] EXAMS: CPT CODE: [id number] XR CHEST 1 V 85796 EXAMINATION: - XR CHEST 1 V CLINICAL [...] By: NadiyaJH12 Orig Print D/T: S: 09/16/2022 (4168) DENIZ Lugo NAME: BHUMIKA JONES [address] [place] [address] PHYS: [email or web address] - Asim Jack MD, [place] [address] : 1975 AGE: 47 SEX: F LOC: MARCOS PHONE #: [phone] EXAM DATE: 09/16/2022 STATUS: PRE ER FAX #: [phone] RAD NO: DC Dt: PAGE 1 Signed ReportCARBAMAZEPINE (TEGRETOL) 2022-09-15 06:12:00* Test Item Value Reference Range Interpretation Comme nts CARBAMAZEPINE (TEGRETOL) (test code = CARB) 1.5 ug/mL 4.0-12.0 L In conjunction w ith other antiepileptic drugs Therapeutic 4.0 - 8.0 Toxicity 9.0 - 12.0 Carbamazepine alone Therapeutic 8.0 - 12.0 Detection Limit = 2.0 <2.0 indicates None DetectedPerformed At: [facility] [address] [id number] Michael Reeves MD Ph:[phone] VALPROIC ACID (DEPAKENE)2022-09-15 06:12:00* Test Item Value Reference Range Interpretation Comme nts VALPROIC ACID (DEPAKENE) (te st code = VALP) 80.6 mcG/ML 50.0-100.0 N COMPREHENSIVE METABOLIC [id number] 06:00:00* Test Item Value Reference Range Interpretation [...] interpret this result as normal/abnormal. CBC W/AUTO [id number] 05:37:00* Test Item Value Reference Range Interpretation [...] NRBC#) 0.00 K/mm3 0.0-0.05 N GLUCOSE BEDSIDE [id number] 20:03:00* Test Item Value Reference Range Interpretation Comme nts GLUCOSE BEDSIDE TESTING (karen t code = GLUBED) 117 MG/DL 70-119 N DRUGS OF ABUSE SCREEN [id number] 11:42:00* Test Item Value Reference Range Interpretation [...] result as normal/abnormal. - CT HEAD/BRAIN W/O [id number] 11:37:00 [facility]: BHUMIKA JONES : 1975 Sex: F Patient Name: BHUMIKA JONES Unit No: [id number] EXAMS: CPT CODE: [id number] CT HEAD/BRAIN W/O CONT 92644 EXAMINATION: - CT HEAD/BRAIN W/O CONT COMPARISON: None HISTORY: Seizure LOCATION CODE: [id number]: CT of the Brain without contrast. Axial [...] Andrew MD CC: Vladimir Forbes MD; Jim aJimes MD Dictated Date/Time: 09/14/2022 (8660) Technologist: ASUNCION CASTELLANO CTDI: DLP: Trnscrpt: 09/14/2022 (2257) [id number] DENIZ Lugo NAME: BHUMIKA JONES [facility] PHYS: Vladimir Menchaca MD [address] [place] [address] : 1975 AGE: 47 SEX: RAFI BUTT [facility] LOC: NEHA 10 PHONE #: [phone] EXAM DATE: 09/14/2022 STATUS: ADM IN FAX #: [phone] RAD #: D/C DT PAGE 1 Signed Report Patient Name: BHUMIKA JONES Unit No: [id number] EXAMS: CPT CODE: [id number] CT HEAD/BRAIN W/O CONT 88876 (Continued) Orig Print D/T: S: 09/14/2022 (0540) DENIZ Lugo NAME: BHUMIKA JONES [facility] PHYS: JESUSVladimir Ramos MD [address] [place] [address] : 1975 AGE: 47 SEX: RAFI BUTT [facility] LOC: NEHA 10 PHONE #: [phone] EXAM DATE: 09/14/2022 STATUS: ADM IN FAX #: [phone] RAD #: D/C DT PAGE 2 Signed Report PT AND [id number] 06:51:00* Test Item Value Reference Range Interpretation [...] AVOIDED DUE TO POSSIBLE HEPARINCONTAMINATION HCG SERUM [id number] 06:51:00* Test Item Value Reference Range Interpretation [...] CK) 268 Unit/L 26-192 H CBC W/AUTO [id number] 03:43:00* Test Item Value Reference Range Interpretation [...] = NRBC#) 0.00 K/mm3 0.0-0.05 N URINALYSIS [id number] 03:41:00* Test Item Value Reference Range Interpretation [...] RARE /LPF NONE - XR CHEST 2 [id number] 02:06:00 [facility] BHUMIKA JONES : 1975 Sex: F FAX: Suleman Carvalho APRNNP [phone] [place]: [address]: REG Patient Name: BHUMIKA JONES Unit No: [id number] EXAMS: CPT CODE: [id number] XR CHEST 2 V 57835 EXAM: - XR CHEST 2 V HISTORY: [...] Orig Print D/T: S: 09/14/2022 (020) DENIZ [place] NAME: [address] PHYS: Suleman [place], [place] [address] : 1975 AGE: 47 SEX: F LOC: B.LISSETH PHONE #: [phone] EXAM DATE: 09/14/2022 STATUS: REG ERFAX #: [phone] RAD NO: DC Dt: PAGE 1 Signed ReportCOMPREHENSIVE METABOLIC [id number] 12:49:00* Test Item Value Reference Range Interpretation [...] used to interpret this result as normal/abnormal. [id number] 12:49:00* Test Item Value Reference Range Interpretation Comme nts MAGNESIUM (test code = MAG) 1.7 MG/DL 1.6-2.6 N CBC W/AUTO [id number] 12:36:00* Test Item Value Reference Range Interpretation [...] RARE /LPF NONE DRUGS OF ABUSE SCREEN [id number] 00:33:00* Test Item Value Reference Range Interpretation [...] 300 ng/mL UA RFLX MICR CULT IF [id number] 00:30:00* Test Item Value Reference Range Interpretation [...] culture: Suprapubic PainSpecimen Description: CLEAN CATCHBASIC METABOLIC [id number] 00:18:00* Test Item Value Reference Range Interpretation [...] 8.9 mg/dl 8.0-10.5 N HEPATIC FUNCTION PANEL [id number] 00:18:00* Test Item Value Reference Range Interpretation [...] ALKP) 113 Units/L 50.0-136.0 N HCG SERUM [id number] 00:18:00* Test Item Value Reference Range Interpretation Comme nts HCG SERUM QUAL (test code = HCGQL) NEGATIVE NEGATIVE [id number] 00:18:00* Test Item Value Reference Range Interpretation Comme nts ALCOHOL (test code = ALC) 0.00 gm/dL 0.00-0.00 N ETHYL ALCOHOL VA SHARRI - INTERPRETATION: 0.050 GM/DL - NOT INTOXICATED 0.100 GM/DL - INTOXICATED 0.350-0.450 GM/DL - SEVERELY INTOXICATED 0.550 GM/DL- FATAL INTOXICATION Coronavirus 2019 nCoV [id number] 00:09:00* Test Item Value Reference Range Interpretation Comme nts Coronavirus 2019 nCoV Bedside (test code = XAWDH10AAFOR) Negative NEGATIVE Negative results should be treated as presumptive and ifinconsistent with clinical signs and symptoms, or necessaryfor patient management, should be tested with an alternativemolecular assay. Negative results do not preclude GTVV-IlP-7ayyxajofm and should not be used as the sole basis forpatient management decisions. Negative results should beconsidered in the context of a patient's recent exposures,history, presence of clinical signs and symptoms consistentwith COVID-19. CBC W/AUTO [id number] 23:58:00* Test Item Value Reference Range Interpretation [...] X10 3uL 0.00-0.01 N COMP. METABOLIC PANEL (09196)2022-09-07 02:12:41* Test Item Value Reference Range Interpretation Comme nts NA (test code = 0233838455) 133 mmol/L 135-145 L K (test code = 0422352291) 4.4 mmol/L 3.5-5.0 CL (test code = 4477385629) 102 mmol/L 98-108 CO2 TOTAL (test code = 2893806914) 25 mmol/L 23-31 AGAP (test code = 5627331353) 6 2-16 BUN (test code = 9442955451) 22 mg/dL 7-23 GLUCOSE (test code = 7507387410) 97 mg/dL 70-110 CREATININE (test code = 7553332166) 0.40 mg/dL 0.50-1.04 L TOTAL BILI (test code = 0806352676) 0.3 mg/dL 0.1-1.1 CALCIUM (test code = 4988944571) 8.9 mg/dL 8.6-10.6 T PROTEIN (test code = 2034710300) 7.7 g/dL 6.3-8.2 ALBUMIN (test code = 3286841199) 4.0 g/dL 3.5-5.0 ALK PHOS (test code = 9154715723) 104 U/L 34-122 ALTv (test code = 1742-6) 15 U/L 5-35 AST(SGOT) (test code = 6089400313) 22 U/L 13-40 eGFR (test code = 5819357752) 170.4 mL/min/1.73m2 HANNAH (test code = HANNAH) [...] imaging tests). Lab Interpretation (test code = 19970-7) Abnormal [facility] WITH [id number] 02:01:20* Test Item Value Reference Range Interpretation Comme nts WBC (test code = 6690-2) 6.17 See_Comment [Automated [employer]] The system which generated this result transmitted reference range: 4.30 - 11.10 10*3/?L. The reference range was not used to interpret this result as normal/abnormal. RBC (test code = 789-8) 3.73 See_Comment L [Automated [employer] BOND] The system which generated this result transmitted [...] 32.9 g/dL 31.6-35.1 RDW-SD (test code = 00643-6) 48.1 fL 39.0-49.9 RDW-CV (test code = 788-0) 14.7 % 12.0-15.5 PLT (test code = 777-3) 272 See_Comment [Automated messa ge] The system which generated this result transmitted reference range: 166 - 358 10*3/?L. The reference range was not used to interpret this result as normal/abnormal. MPV (test code = 99847-8) 9.6 fL 9.5-12.9 NRBC/100 WBC (test code = 4130695677) 0.0 See_Comment [Automated [employer] [place] ssage] The system which generated this result transmitted reference range: 0.0 - 10.0 /100 WBCs. The reference range was not used to interpret this result as normal/abnormal. NRBC x10^3 (test code = 4242027283) See_Comment [Automated [employer] ge] The system which generated this result transmitted reference range: 10*3/?L. The reference range was not used to interpret this result as normal/abnormal. GRAN MAT (NEUT) % (test code = 770-8) 42.2 % IMM GRAN % (test code = 9112664410) 0.20 % LYMPH % (test code = 736-9) 38.2 % MONO % (test code = 5905-5) 12.6 % EOS % (test code = 713-8) 5.8 % BASO % (test code = 706-2) 1.0 % GRAN MAT x10^3(ANC) (test code = 7169949139) 2.60 10*3/uL 1.88-7.09 IMM GRAN x10^3 (test code = 7734722718) 0.00-0.06 LYMPH x10^3 (test code = 731-0) 2.36 10*3/uL 1.32-3.29 MONO x10^3 (test code = 742-7) 0.78 10*3/uL 0.33-0.92 EOS x10^3 (test code = 711-2) 0.36 10*3/uL 0.03-0.39 BASO x10^3 (test code = 704-7) 0.06 10*3/uL 0.01-0.07 Lab Interpretation (test code = 95537-3) [facility]normal [facility] by RT-PCR (HIGH RISK) 2020-08-19 00:00:00* Test Item Value Reference Range Interpretation Comme nts SARS-CoV-2 INTERPRETATION (t est code = 17308) NEGATIVE SOURCE (test code = 96580) NOT SPECIFIED Henry Etta UgljcdNHYS-QrC-1 (COVID-19) by RT-PCR (HIGH RISK)2020-08-19 00:00:00* Test Item Value Reference Range Interpretation Comme nts SARS-CoV-2 INTERPRETATION (t est code = 04822) NEGATIVE SOURCE (test code = 59523) NOT SPECIFIED Henry Quiles AustinHPV HIGH RISK WITH GENOTYPE, [id number] 00:00:00* Test Item Value Reference Range Interpretation Comme nts HPV HIGH RISK INTERP (test c ode = 04974) NEGATIVE HPV 16 (test code = 14270) NEGATIVE HPV 18 (test code = 86261) NEGATIVE HPV, HR, OTHER GENOTYPES (te st code = 42134) NEGATIVE Henry ContrerasPAP TEST, THINPREP, [id number] 00:00:00* Test Item Value Reference Range Interpretation Comme nts SOURCE: (test code = 8001) Cervical/Endocervical SLIDES: (test code = 8011) 1 LMP: (test code = 8021) 06/2017 SPECIMEN ADEQUACY: (test code = 94380) (NOTE) INTERPRETATION: (test code = 91721) NILM/NO EPITH. 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: (test code = 8101) KANA Hamlin(ASCP) IAC LOCATION: (test code = 55043) (NOTE) CPT: (test code = 8140) (NOTE) Henry ContrerasHPV HIGH RISK WITH GENOTYPE, [id number] 00:00:00* Test Item Value Reference Range Interpretation Comme nts HPV HIGH RISK INTERP (test c ode = 98117) NEGATIVE HPV 16 (test code = 83779) NEGATIVE HPV 18 (test code = 82319) NEGATIVE HPV, HR, OTHER GENOTYPES (te st code = 79017) NEGATIVE Henry ContrerasPAP TEST, THINPREP, [id number] 00:00:00* Test Item Value Reference Range Interpretation Comme nts SOURCE: (test code = 8001) Cervical/Endocervical SLIDES: (test code = 8011) 1 LMP: (test code = 8021) 06/2017 SPECIMEN ADEQUACY: (test code = 13790) (NOTE) INTERPRETATION: (test code = 77492) NILM/NO EPITH. 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: (test code = 8101) KANA Hamlin(ASCP) IAC LOCATION: (test code = 78415) (NOTE) CPT: (test code = 8140) (NOTE) Henry ContrerasCT HEAD WO [id number] 22:34:12Impression: 1. ?No acute intracranial process. 2. [...] physicalexamination.[facility] RockXR CERVICAL SPINE 2 [id number] 22:29:40No acute osseous abnormality. Preliminary Report Dictated [...] report.[facility] RockCBC WITH ZZRPNIJQCUVH8257-15-13 21:46:00* Test Item Value Reference Range Interpretation [...] 32.2 g/dL 31.6-35.1 RDW-SD (test code = 99967-3) 45.1 fL 39-49.9 RDW-CV (test code = 788-0) 14.6 % 12-15.5 PLT (test code = 777-3) See_Comment L [Automated messa ge] The system which generated this result transmitted reference range: 166 - 358 10*3/?L. The reference range was not used to interpret this result as normal/abnormal. MPV (test code = 46500-3) 9.0 fL 9.5-12.9 L NRBC/100 WBC (test code = 1067002808) See_Comment [Automated [employer] [place] ssage] The system which generated this result transmitted reference range: 0.0 - 10.0 /100 WBCs. The reference range was not used to interpret this result as normal/abnormal. NRBC x10^3 (test code = 7488440000) <0.01 See_Comment [Automated messa ge] The system which generated this result transmitted reference range: 10*3/?L. The reference range was not used to interpret this result as normal/abnormal. GRAN MAT (NEUT) % (test code = 770-8) 51.3 % IMM GRAN % (test code = 9677420270) 0.40 % LYMPH % (test code = 736-9) 24.4 % MONO % (test code = 5905-5) 23.1 % EOS % (test code = 713-8) 0.4 % BASO % (test code = 706-2) 0.4 % GRAN MAT x10^3(ANC) (test code = 0741233040) 2.48 10*3/uL 1.88-7.09 IMM GRAN x10^3 (test code = 5062539779) <0.03 0-0.06 LYMPH x10^3 (test code = 731-0) 1.18 10*3/uL 1.32-3.29 L MONO x10^3 (test code = 742-7) 1.12 10*3/uL 0.33-0.92 H EOS x10^3 (test code = 711-2) <0.03 0.03-0.39 L BASO x10^3 (test code = 704-7) <0.03 0.01-0.07 Lab Interpretation (test code = 83115-4) Abnormal [facility] CERV[facility] SPINE 2 [id number] 03:28:03No acute osseous abnormality. Preliminary Report Dictated [...] [facility] RockValproic Acid Cutud6441-31-24 08:03:22* Test Item Value Reference Range Interpretation Comme nts Valproic Acid Level (test co de = Valproic Acid Level) 57.6 ug/mL(g) 50.0-100.0 Hemoglobin [id number] 09:36:00* Test Item Value Reference Range Interpretation Comme nts Hemoglobin A1c (test code = Hemoglobin A1c) 5.0 % 4.8-5.9 Non Diabetic 4.8-5.9%Diabetic <7.0% CT Shoulder w/o Contrast [id number] 16:49:13Patient: BHUMIKA JONES Date/Time01/09/2019 16:14 CDTReason for [...] Adam FSigned (Electronic Signature): 01/09/2019 4:49 pmRPR Mmvozjalope8000-41-46 21:33:20* Test Item Value Reference Range Interpretation [...] 04-23-2020 N XR Shoulder Complete 2+ Views [id number] 15:41:25Patient: BHUMIKA JONES Date/Time01/07/2019 15:25 CDTReason for [...] CSigned (Electronic Signature): 01/07/2019 3:41 pmThyroid Stimulating Gpahvjx4398-54-13 03:07:04* Test Item Value Reference Range Interpretation Comme nts TSH (test code = TSH) 9.650 mIU/mL 0.270-4.200 H Lipid [id number] 03:07:03* Test Item Value Reference Range Interpretation Comme nts Cholesterol Total (test code = Cholesterol Total) 199 mg/dL 0-200 RISK OF HEART DISEASEPublished by [place] Heart Association Analyte Optimal Borderline Increased RiskCHOL [...] is LDL/HDL Ratio=LDL Calc/HDL Chol HCG Qualitative Axhmw0776-75-97 02:33:13* Test Item Value Reference Range Interpretation Comme nts HCG, Serum Qual (test code = HCG, Serum Qual) Negative Lot # (test code = Lot #) [id number] N Expiration Dt (test code = Expiration Dt) 2020-04-23 N Neg Control (test code = Neg Control) Negative Pos Control (test code = Pos Control) Positive Internal QC (test code = Int ernal QC) Acceptable Drugs of Abuse Urine [id number] 18:58:11* Test Item Value Reference Range Interpretation [...] = Cannabinoid Screen Ur) Negative Negative Alcohol [id number] 18:47:34* Test Item Value Reference Range Interpretation Comme nts Ethanol Level (test code = Ethanol Level) <0.00 g/dL 0.00-0.01 Intoxicated 0.08 0 g/dL or more Ethanol Inst (test code = Ethanol Inst) <0 N Comprehensive Metabolic Olccp3638-95-47 18:47:33* Test Item Value Reference Range Interpretation [...] A/G Ratio) 1.0 ratio N Comprehensive Metabolic [id number] 18:47:33* Test Item Value Reference Range Interpretation [...] is not provided, and the patient is -[place], multiply by 1.212. If sex is not [...] the National Kidney Foundation, http://nkdep.nih.gov Comprehensive Metabolic Tzoby3424-05-57 18:47:33* Test Item Value Reference Range Interpretation [...] is not provided, and the patient is -[place], multiply by 1.212. If sex is not [...] is not provided, and the patient is -[place], multiply by 1.212. If sex is not [...] Kidney Foundation, http://nkdep.nih.gov Complete Blood Count with Ucyfspolkuuw1375-84-70 18:15:23* Test Item Value Reference Range Interpretation [...] code = IPF) 0 % N Automated Wzfinodbeirt8976-36-28 18:15:23* Test Item Value Reference Range Interpretation Comme nts Neutro Auto (test code = Sunny tro Auto) 42.1 % 36.0-70.0 Lymph Auto (test code = Lymph Auto) 40.0 % 12.0-44.0 [place] Auto (test code = [place] Auto) 12.2 % 0.0-11.0 H Eos, Auto (test code = Eos, Auto) 4.9 % 0.0-7.0 Basophil Auto (test code = B asophil Auto) 0.6 % 0.0-2.0 Neutro Absolute (test code = Neutro Absolute) 2.2 x10 1.6-7.4 Lymph Absolute (test code = Lymph Absolute) 2.06 x10 .50-4.60 [place] Absolute (test code = M richa Absolute) .63 x10 .00-1.20 Eos Absolute (test code = Eo s Absolute) 0.25 x10 0.00-0.74 Baso Absolute (test code = B aso Absolute) 0.03 x10 0.00-0.21 IG [id number] 18:15:23* Test Item Value Reference Range Interpretation Comme nts IG (test code = IG) 0.2 % 0.0-5.0 IG Abs (test code = IG Abs) 0 x10 N VALPROIC [id number] 00:00:00* Test Item Value Reference Range Interpretation Comme nts VALPROIC ACID (test code = 3025) 69.8 UG/ML Henry ContrerasVALPROIC [id number] 00:00:00* Test Item Value Reference Range Interpretation Comme nts VALPROIC ACID (test code = 3025) 69.8 UG/ML Henry Quiles AustinURINE CULTURE, NO [id number] 00:00:00* Test Item Value Reference Range Interpretation Comme nts URINE CULTURE, NO SENS (test code = 37149) SPECIMEN NUMBER: [id number] Henry Quiles AustinURINE CULTURE, NO [id number] 00:00:00* Test Item Value Reference Range Interpretation Comme nts URINE CULTURE, NO SENS (test code = 09516) SPECIMEN NUMBER: [id number] Henry ContrerasIRON BINDING CAPACITY AND IRON AND % [id number] 00:00:00* Test Item Value Reference Range Interpretation Comme nts IRON, SERUM (test code = 2222) 42 UG/DL UNSATURATED IBC (test code = 38515) 279 UG/DL CALC TOTAL IBC (test code = 2077) 321 UG/DL CALC % IRON SAT (test code = 2079) 13 % Henry ContrerasRubxowNHGWKSJS5614-62-39 00:00:00* Test Item Value Reference Range Interpretation Comme nts FERRITIN (test code = 2075) 15 NG/ML Henry ContrerasTvosihSZOQSGFHZYM0588-85-47 00:00:00* Test Item Value Reference Range Interpretation Comme nts TRANSFERRIN (test code = 4936) 269 MG/DL Henry Quiles AustinFOLIC [id number] 00:00:00* Test Item Value Reference Range Interpretation Comme nts FOLIC ACID (test code = 2695) 5.4 UG/L Henry ContrerasIRON BINDING CAPACITY AND IRON AND % [id number] 00:00:00* Test Item Value Reference Range Interpretation Comme nts IRON, SERUM (test code = 2222) 42 UG/DL UNSATURATED IBC (test code = 02308) 279 UG/DL CALC TOTAL IBC (test code = 2077) 321 UG/DL CALC % IRON SAT (test code = 2079) 13 % Henry ContrerasReyoxpMFOKBDHT2533-65-31 00:00:00* Test Item Value Reference Range Interpretation Comme nts FERRITIN (test code = 2075) 15 NG/ML Henry Quiles [id number] 00:00:00* Test Item Value Reference Range Interpretation Comme nts TRANSFERRIN (test code = 4936) 269 MG/DL Henry Quiles AustinFOLIC [id number] 00:00:00* Test Item Value Reference Range Interpretation Comme nts FOLIC ACID (test code = 2695) 5.4 UG/L Henry ContrerasCULTURE, URINE [ADDED]2018-06-12 00:00:00* Test Item Value Reference Range Interpretation Comme nts CULTURE, URINE (test code = 03335) SPECIMEN NUMBER: [id number] Henry Quiles AustinCULTURE, URINE [ADDED]2018-06-12 00:00:00* Test Item Value Reference Range Interpretation Comme nts CULTURE, URINE (test code = 49124) SPECIMEN NUMBER: [id number] Henry Quiles AustinCBC W/AUTO [id number] 00:00:00* Test Item Value Reference Range Interpretation [...] = 1015) 184 K/UL Henry ContrerasCOMPREHENSIVE METABOLIC [id number] 00:00:00* Test Item Value Reference Range Interpretation Comme nts GLUCOSE (test code = 2217) 86 MG/DL BUN (test code = 2208) 16 MG/DL CREATININE (test code = 2214) 0.45 MG/DL eGFR AMER. (test cod e = 32883) 141 ML/MIN/1.73 eGFR NON- AMER. (test code = 32776) 122 ML/MIN/1.73 CALC BUN/CREAT (test code = [...] code = 2219) 17 U/L Henry ContrerasVALPROIC [id number] 00:00:00* Test Item Value Reference Range Interpretation Comme nts VALPROIC ACID (test code = 3025) 100.9 UG/ML Henry ContrerasCBC W/AUTO [id number] 00:00:00* Test Item Value Reference Range Interpretation [...] 1015) 184 K/UL Henry Quiles BenCOMPREHENSIVE METABOLIC [id number] 00:00:00* Test Item Value Reference Range Interpretation Comme nts GLUCOSE (test code = 2217) 86 MG/DL BUN (test code = 2208) 16 MG/DL CREATININE (test code = 2214) 0.45 MG/DL eGFR AMER. (test cod e = 80299) 141 ML/MIN/1.73 eGFR NON- AMER. (test code = 93684) 122 ML/MIN/1.73 CALC BUN/CREAT (test code = [...] = 2219) 17 U/L Henry Quiles BenVALPROIC [id number] 00:00:00* Test Item Value Reference Range Interpretation Comme nts VALPROIC ACID (test code = 3025) 100.9 UG/ML Henry Etta BenPAP TEST, THINPREP, [id number] 00:00:00* Test Item Value Reference Range Interpretation Comme nts SOURCE: (test code = 8001) Cervical/Endocervical SLIDES: (test code = 8011) 1 LMP: (test code = 8021) 03/2017 SPECIMEN ADEQUACY: (test code = 78493) (NOTE) INTERPRETATION: (test code = 16942) NO EPITHELIAL ABNORMALITY SEE BELOW MECHANICAL MAINTENANCE FOREMAN: (test code = 8101) KANA Merida(ASCP)IAC LOCATION: (test code = 31710) (NOTE) CPT: (test code = 8140) (NOTE) Henry ContrerasHPV HIGH RISK WITH GENOTYPE, [id number] 00:00:00* Test Item Value Reference Range Interpretation Comme nts HPV HIGH RISK INTERP (test c ode = 10022) NEGATIVE HPV 16 (test code = 08237) NEGATIVE HPV 18 (test code = 83620) NEGATIVE HPV, HR, OTHER GENOTYPES (te st code = 67999) NEGATIVE Henry ContrerasPAP TEST, THINPREP, [id number] 00:00:00* Test Item Value Reference Range Interpretation Comme nts SOURCE: (test code = 8001) Cervical/Endocervical SLIDES: (test code = 8011) 1 LMP: (test code = 8021) 03/2017 SPECIMEN ADEQUACY: (test code = 51617) (NOTE) INTERPRETATION: (test code = 53106) NO EPITHELIAL ABNORMALITY SEE BELOW MECHANICAL MAINTENANCE FOREMAN: (test code = 8101) KANA Merida(ASCP)IAC LOCATION: (test code = 45330) (NOTE) CPT: (test code = 8140) (NOTE) Henry ContrerasHPV HIGH RISK WITH GENOTYPE, [id number] 00:00:00* Test Item Value Reference Range Interpretation Comme nts HPV HIGH RISK INTERP (test c ode = 14710) NEGATIVE HPV 16 (test code = 94998) NEGATIVE HPV 18 (test code = 68092) NEGATIVE HPV, HR, OTHER GENOTYPES (te st code = 55049) NEGATIVE Henry ContrerasHIV AB/AG COMBO RFLX [id number] 00:00:00* Test Item Value Reference Range Interpretation Comme nts HIV 1/2 4TH GEN, RFLX CONF ( test code = 3514) NON-REACTIVE Henry ContrerasGC AND CHLAMYDIA AMPLIFIED, [id number] 00:00:00* Test Item Value Reference Range Interpretation Comme nts GONORRHEA, TMA (test code = 58092) NEGATIVE CHLAMYDIA, TMA (test code = 71156) NEGATIVE Henry ContrerasGC AND CHLAMYDIA AMPLIFIED, [id number] 00:00:00* Test Item Value Reference Range Interpretation Comme nts GONORRHEA, TMA (test code = 82174) NEGATIVE CHLAMYDIA, TMA (test code = 98442) NEGATIVE Henry ContrerasHIV AB/AG COMBO RFLX [id number] 00:00:00* Test Item Value Reference Range Interpretation Comme nts HIV 1/2 4TH GEN, RFLX CONF ( test code = 3514) NON-REACTIVE Henry ContrerasLIPID [id number] 00:00:00* Test Item Value Reference Range Interpretation Comme nts CHOLESTEROL (test code = 2210) 186 MG/DL TRIGLYCERIDES (test code = 2232) 131 MG/DL HDL CHOLESTEROL (test code = 2220) 67 MG/DL CALC LDL CHOL (test code = 2237) 93 MG/DL RISK RATIO LDL/HDL (test cod e = 2238) 1.39 RATIO Henry ContrerasCBC W/AUTO [id number] 00:00:00* Test Item Value Reference Range Interpretation [...] code = 1015) 152 K/UL Henry ContrerasHEMOGLOBIN [id number] 00:00:00* Test Item Value Reference Range Interpretation Comme shaina HEMOGLOBIN A1c (test code = 97685) 5.2 % Henry [id number] 00:00:00* Test Item Value Reference Range Interpretation Comme nts TSH (test code = 2821) 2.020 UIU/ML Henry ContrerasCOMPREHENSIVE METABOLIC [id number] 00:00:00* Test Item Value Reference Range Interpretation Comme nts GLUCOSE (test code = 2217) 90 MG/DL BUN (test code = 2208) 21 MG/DL CREATININE (test code = 2214) 0.42 MG/DL eGFR AMER. (test cod e = 59602) 145 ML/MIN/1.73 eGFR NON- AMER. (test code = 80141) 126 ML/MIN/1.73 CALC BUN/CREAT (test code = [...] code = 2219) <5 U/L Henry ContrerasLIPID [id number] 00:00:00* Test Item Value Reference Range Interpretation Comme nts CHOLESTEROL (test code = 2210) 186 MG/DL TRIGLYCERIDES (test code = 2232) 131 MG/DL HDL CHOLESTEROL (test code = 2220) 67 MG/DL CALC LDL CHOL (test code = 2237) 93 MG/DL RISK RATIO LDL/HDL (test cod e = 2238) 1.39 RATIO Henry ContrerasCBC W/AUTO [id number] 00:00:00* Test Item Value Reference Range Interpretation [...] code = 1015) 152 K/UL Henry ContrerasHEMOGLOBIN [id number] 00:00:00* Test Item Value Reference Range Interpretation Comme shaina HEMOGLOBIN A1c (test code = 41441) 5.2 % Henry ContrerasDqaqlnLQS9885-23-99 00:00:00* Test Item Value Reference Range Interpretation Comme nts TSH (test code = 2821) 2.020 UIU/ML Henry ContrerasCOMPREHENSIVE METABOLIC [id number] 00:00:00* Test Item Value Reference Range Interpretation Comme nts GLUCOSE (test code = 2217) 90 MG/DL BUN (test code = 2208) 21 MG/DL CREATININE (test code = 2214) 0.42 MG/DL eGFR AMER. (test cod e = 44599) 145 ML/MIN/1.73 eGFR NON- AMER. (test code = 00572) 126 ML/MIN/1.73 CALC BUN/CREAT (test code = [...] Henry Contreras Notes Date/Time Note Provider Source PATIENT OPEN ORDERS Code System Description Frequency Occurrences Priority [place] [address]-6 [facility] EKG study ONE TIME 0 Stat November 24, 2023 12:29:00 AM UTC MAGALIE BRAVO [id number] on November 24, 2023 12:29:00 AM UTC SCHEDULED PROCEDURES Code System Description Status Scheduled Date Updated By Patient scheduled procedure information is not available. [facility]2024-06-04 04:23:47 CARE paperhanger Role on Team Status Start Date End Date Update d By NO PCP Referring normal November 24, 2023 2:17:11 AM UTC November 25, 2023 12:04:00 AM UTC [id number] on November 24, 2023 2:17:11 AM UT MAGALIE BRAVO Attending normal November 24, 2023 2:17:11 AM UTC November 25, 2023 12:04:00 AM UTC [id number] on November 24, 2023 2:17:11 AM UT MAGALIE BRAVO Admitting normal November 24, 2023 2:17:11 AM UTC November 25, 2023 12:04:00 AM UTC [email or web address] on November 24, 2023 2:17:11 AM UT NO PCP PCP normal November 24, 2023 2:17:11 AM UTC November 25, 2023 12:04:00 AM UTC [id number] on November 24, 2023 2:17:11 AM UTC [facility]2024-06-03 00:00:00 Henry Contreras [facility]2024-06-02 19:05:13 PATIENT OPEN ORDERS Code System Description Frequency Occurrences Priority [place] [id number] [facility] EKG study ONE TIME 0 Stat November 24, 2023 12:29:00 AM [place] MAGALIE [id number] on November 24, 2023 12:29:00 AM UTC SCHEDULED PROCEDURES Code System Description Status Scheduled Date Updated By Patient scheduled procedure information is not available. [facility]2024-06-02 19:05:13 CARE paperhanger Role on Team Status Start Date End Date Update d By NO PCP Referring normal November 24, 2023 2:17:11 AM [facility] November 25, 2023 12:04:00 AM [facility] [id number] on November 24, 2023 2:17:11 AM [facility] MAGALIE BRAVO Attending normal November 24, 2023 2:17:11 AM [facility] November 25, 2023 12:04:00 AM [facility] [id number] on November 24, 2023 2:17:11 AM [facility] MAGALIE BRAVO Admitting normal November 24, 2023 2:17:11 AM [facility] November 25, 2023 12:04:00 AM [facility] [id number] on November 24, 2023 2:17:11 AM [facility] NO PCP PCP normal November 24, 2023 2:17:11 AM [facility] November 25, 2023 12:04:00 AM [facility] [id number] on November 24, 2023 2:17:11 AM [facility]2024-06-01 21:59:[address] [address] DIAGNOSTIC IMAGING REPORT Patient Name: JONATHAN JONES Date of Service: 11-23-2023 Age: 48 Sex: F Order #: [id number] Room: [facility] : 1975 X-Ray Number: [id number] Hospital Number: [id number] Admitting Physician: LAWRENCE MEJIAS Ordering Physician: LAWRENCE [...] authenticated by ANGIE PHAM 2023-11-23 21:59:03MALA ADAMS [id number] 21:53:[address] [address] DIAGNOSTIC IMAGING REPORT Patient Name: JONATHAN JONES Date of Service: 11-23-2023 Age: 48 Sex: F Order #: [id number] Room: [facility] : 1975 X-Ray Number: [id number] Hospital Number: [id number] Admitting Physician: LAWRENCE MEJIAS Ordering Physician: LAWRENCE [...] 21:53:03ALON DEL RIO 2023-10-25 00:00:00 Henry Goldberg [facility]2024-04-10 09:45:21 We are unable to release any pt information with out prior pt permission. However, Risperdal is not generally managed by neurology and would be best managed by psychiatrist. Robyn Durham [facility]2024-04-09 16:15:28 Copied from [facility] #[id number]. Topic: Clinical - Order >> Oct 01, 2023 4:13 PM Patient Mailhouse Operator wrote: [facility] is calling regarding medication risperdal they were givng her 3mg and stating had dropped it to 1mg trying to confirm change Call [phone] Skyler Christiana [id number] 12:29:00 [facility] ([facility] Hospitalist Discharge Summary REPORT#:[id number] REPORT STATUS: Signed DATE:10/11/22 TIME: 1229 PATIENT: BHUMIKA JONES UNIT #: [id number] ROOM/BED: [place] [address] : [birth year] AGE: 47 SEX: F ATTEND: [...] patient this morning with the help of law reporter and she said that he lives [...] refill, normal range of motion, no edema Neuro/ROAD MARKER: altered mental status, alert Discharge Instructions PCP Discharge to: Home/Self Care Additional Discharge Routines: PCP Follow-Up Diet: Resume Home Diet/Feeds Activity: As Tolerated Follow-up Appointments PCP follow-up: PCP: No Primary or Family Physician PCP follow up timeframe: In 6 days at 1230 [facility] #:[id number] END OF [id number] 17:27:00 [facility] ([facility]) Electroencephalogram-EEG REPORT#:[id number] REPORT STATUS: Signed DATE:09/18/22 TIME: 1726 PATIENT: BHUMIKA JONES UNIT #: [id number] ROOM/BED: [place] [address] : [birth year] AGE: 47 SEX: F ATTEND: [...] open eyes (commands were obtained using a ceramic chemist) with opening the eyes the patient would [...] with the patient mentioned. at 1736 RPT #:[id number] END OF [id number] 14:24:00 [facility] ([facility]) Neurology Consultation Note REPORT#:[id number] REPORT STATUS: Signed DATE:09/18/22 TIME: 1424 PATIENT: BHUMIKA JONES UNIT #: [id number] ROOM/BED: [place] [address] : [birth year] AGE: 47 SEX: F ATTEND: Marly Mendenhall MD ADM AUTHOR: Nelia Parker MD * ALL edits or amendments must be made on the electronic/computer document * See Addendum History of Present Illness HPI Requesting clinician: see consult order Reason for consult: "AMS" Chief complaint: wanting to go home for her family HPI: 47-year-old female Burkinan speaking only who was brought into the [...] the [facility]. Per the patient she get upset that [...] available to confirm the history and the [facility] location is unknown to [...] MG 09/18 09/18 09/17 09/17 0553 0553 0977 1517 Chemistry Hemoglobin A1c (4.5 - 5.6 % [...] - 8.0 pH UNITS) 6.5 Ur Specific [place] (1.001 - 1.035 SG) 1.013 Urine Protein [...] the past or not. at 1652 RPT #:[id number] END OF [id number] 11:44:00 [facility] ([facility]) Hospitalist Progress Note REPORT#:[id number] REPORT STATUS: Signed DATE:09/18/22 TIME: 1144 PATIENT: BHUMIKA JONES UNIT #: [id number] ROOM/BED: [place] [address] : 74 AGE: 47 SEX: F ATTEND: [...] patient this morning with the help of law reporter and she said that he lives [...] refill, normal range of motion, no edema Neuro/ROAD MARKER: altered mental status, alert Diagnosis, Assessment Plan [...] afternoon if remains stable at 1147 RPT #:[id number] END OF [id number] 01:06:00 [facility] ([facility]) Hospitalist History Physical REPORT#:[id number] REPORT STATUS: Signed DATE:09/18/22 TIME: 105 PATIENT: BHUMIKA JONES UNIT #: [id number] ROOM/BED: [place] [address] : 74 AGE: 47 SEX: F ATTEND: [...] - 8.0 pH UNITS) 6.5 Ur Specific [place] (1.001 - 1.035 SG) 1.013 Urine Protein [...] rhythm Respiratory: decreased breath sounds Abdomen: soft Neuro/ROAD MARKER: altered mental status, alert Diagnosis, Assessment Plan [...] by incoming MD thereafter at 0110 RPT #:[id number] END OF [id number] 14:34:00 [facility] ([facility]) EMERGENCY PROVIDER REPORT REPORT#:[id number] REPORT STATUS: Signed DATE:09/17/22 TIME: 1433 PATIENT: BHUMIKA JONES UNIT #: [id number] [facility]BED[facility] AGE: 47 SEX: F PCP PHYS: No Primary or Family Physician SERVICE AUTHOR: Valentina Samayoa MD * ALL edits or amendments must be made on the electronic/computer document * HPI-General Illness Free Text HPI Notes Free Text HPI Notes 47-year-old female presents after possible seizure episode at [facility], [facility] assessment patient is not fully oriented, and cannot provide history of the events of today when asked multiple times. Additional history limited as the patient is tearful and not fully oriented. I spoke to the patient's sister Lewis Luis, phone #[phone] by phone, who reports the patient has been missing from home for 8 days. Reports when the patient is medically cleared they can come get the patient. Patient reportedly initially without medications at the [facility] PMH: Seizures, schizophrenia. General Initial Greet [...] Prov: 09/13/22 DC: 09/14/22 1500 entry level web developer correction DIVALPROEX DR (GINA CALLES) 1,000 MG PO DAILY DIVALPROEX DR (GINA CALLES) 1,000 MG PO DAILY #60 TABS Prov: 09/13/22 DC: 09/14/22 1459 entry level web developer correction Reported Medications DIVALPROEX ER (DEPAKOTE ER) [...] - 8.0 pH UNITS) 6.5 Ur Specific [place] (1.001 - 1.035 SG) 1.013 Urine Protein [...] refill, drowsy, admitted, ultimately discharged back to [facility]] -My EKG interpretation: I directly visualized and [...] )( Accepted Date 09/17/22 at 1114 RPT #:[id number] END OF [id number] 00:19:00 [facility] ([facility] EMERGENCY PROVIDER REPORT REPORT#:[id number] REPORT STATUS: Signed DATE:09/17/22 TIME: 0019 PATIENT: BHUMIKA JONES UNIT #: [id number] ROOM/BED: AGE: 47 SEX: F PCP PHYS: No Primary or Family Physician SERVICE AUTHOR: Asim Jack MD * ALL edits or amendments must be made on the electronic/computer document * HPI-General Illness General Initial Greet Date/Time 09/16/22 9501 Presentation Chief Complaint Anxiety, Not feeling well Free Text HPI Notes Free Text HPI Notes [facility] after increasing anxiety and concern for possible seizure activity. She was recently admitted here at [facility] and worked up for possible seizures. She [...] Prov: 09/13/22 DC: 09/14/22 1500 entry level web developer correction DIVALPROEX (GINA CALLES) 1,000 MG PO DAILY DIVALPROEX DR TEOFILO CALLES) 1,000 MG PO DAILY #60 TABS Prov: 09/13/22 DC: 09/14/22 1459 entry level web developer correction Reported Medications DIVALPROEX ER (DEPAKOTE ER) [...] 15 Pulse 67 09/18 15 Resp 16 09/17 001 Review of Vital [...] % (Auto) (14.1 - 45.4 %) 29.6 [place] % (Auto) (2.5 - 11.7 %) 10.8 Eos % (Auto) (0.0 - 6.2 %) 2.9 Baso % (Auto) (0.0 - 2.1 %) 0.7 Gran # (2.0 - 13.7 k/mm3) 3.12 Lymph # (Auto) (0.6 - 3.8 K/mm3) 1.65 [place] # (Auto) (0.11 - 0.59 K/mm3) 0.60 [...] Instructions Please follow-up with [facility], [facility], and neurology. Return if any confusion, headache, stiff neck, fever, vomiting, or any other new concerns. Please take all your medications as instructed Referrals Provider Group: [facility] Follow-Up: 2-3 Days Provider Referral: Nelia Parker MD Follow-Up: 2-3 Days Address: [address] [place] [address] [address] [place] [address] Resource Referral: Savita Orona [facility] Follow-Up: 2-3 Days Address: [address] [place] [address]. [place] [address] at 0140 RPT #:[id number] END OF [id number] 12:06:00 [facility] ([facility]) Electroencephalogram-EEG REPORT#:[id number] REPORT STATUS: Signed DATE:09/15/22 TIME: 1206 PATIENT: BHUMIKA JONES UNIT #: [id number] ROOM/BED: B250-W : 74 AGE: 47 SEX: [...] or electrographic seizures recorded. at 1209 RPT #:[id number] END OF [id number] 12:00:00 [facility] ([facility]) Hospitalist Discharge Summary REPORT#:[id number] REPORT STATUS: Signed DATE:09/15/22 TIME: 1200 PATIENT: BHUMIKA JONES UNIT #: [id number] ROOM/BED: B250-W : 74 AGE: 47 SEX: [...] evaluated for possible seizure episode. 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 Patient denies to have any [...] initial diagnosis and related differentials with the patient/medicare specialist including RN. All concerns and questions are answered to the best of my abilities based on the available data.I have initiated the plan of care based on preliminary diagnosis, requested appopriate consultations with labs/imagings. Patient/medicare specialist verbalizes understanding of the plan of [...] timeframe: In 1-2 weeks at 1202 RPT #:[id number] END OF [id number] 16:56:00 [facility]) Neurology Consultation Note REPORT#:[id number] REPORT STATUS: Signed DATE:09/14/22 TIME: 1656 PATIENT: BHUMIKA JONES UNIT #: [id number] ROOM/BED: [address] : [birth year] AGE: 47 SEX: F [...] evaluated for possible seizure episode. 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 Patient denies to have any [...] (SODIUM CHLORIDE 0.9% 1000 ML) 1,000 ML .[id number] IV Trazodone HCl (DESYREL) 50 MG BEDTIME PRN PRN PO Sodium Chloride (SODIUM CHLORIDE 0.9% 1000 ML) 1,000 ML .[id number] IV Carbamazepine (TEGretol) 400 MG BID PO Divalproex Sodium (DEPAKOTE DR) 1,000 MG BID PO (DC) Acetaminophen (TYLENOL) 650 MG Q6H PRN PRN PO Ondansetron HCl (ZOFRAN) 4 MG Q4H PRN PRN IV Ceftriaxone Sodium (ROCEPHIN) 1 GM Q24H IV (CAN) Lactated Ringer's (LACTATED RINGERS) 1,000 ML .[id number] IV Ceftriaxone Sodium (ROCEPHIN) 1 GM X1ED [...] patient poor cooperation Results Findings/Data: Laboratory Tests 09/1434 0315 Chemistry Sodium (133 - [...] (0.88 - 1.13 INR Unit) 0.95 PTT ([place]) (24 - 37.7 SECONDS) 34.6 Laboratory Tests [...] % (Auto) (14.1 - 45.4 %) 33.6 [place] % (Auto) (2.5 - 11.7 %) 13.4 H Eos % (Auto) (0.0 - 6.2 %) 7.4 H Baso % (Auto) (0.0 - 2.1 %) 0.9 Gran # (2.0 - 13.7 k/mm3) 2.61 Lymph # (Auto) (0.6 - 3.8 K/mm3) 1.96 [place] # (Auto) (0.11 - 0.59 K/mm3) 0.78 [...] - 8.0 pH UNITS) 6.0 Ur Specific [place] (1.001 - 1.035 SG) 1.032 Urine Protein [...] deferred to primary team. at 1707 RPT #:[id number] END OF [id number] 14:55:00 [facility] ([facility]) Hospitalist History Physical REPORT#:[id number] REPORT STATUS: Signed DATE:09/14/22 TIME: 1454 PATIENT: BHUMIKA JONES UNIT #: [id number] [facility] AGE: 47 SEX: [...] evaluated for possible seizure episode. 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 Patient denies to have any [...] (0.88 - 1.13 INR Unit) 0.95 PTT ([place]) (24 - 37.7 SECONDS) 34.6 Toxicology Valproic [...] % (Auto) (14.1 - 45.4 %) 33.6 [place] % (Auto) (2.5 - 11.7 %) 13.4 H Eos % (Auto) (0.0 - 6.2 %) 7.4 H Baso % (Auto) (0.0 - 2.1 %) 0.9 Gran # (2.0 - 13.7 k/mm3) 2.61 Lymph # (Auto) (0.6 - 3.8 K/mm3) 1.96 [place] # (Auto) (0.11 - 0.59 K/mm3) 0.78 [...] - 8.0 pH UNITS) 6.0 Ur Specific [place] (1.001 - 1.035 SG) 1.032 Urine Protein [...] evaluated for possible seizure episode. 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 Patient denies to have any [...] initial diagnosis and related differentials with the patient/medicare specialist including RN. All concerns and questions are answered to the best of my abilities based on the available data.I have initiated the plan of care based on preliminary diagnosis, requested appopriate consultations with labs/imagings. Patient/medicare specialist verbalizes understanding of the plan of care. at 1501 RPT #:[id number] END OF [id number] 04:21:00 [facility] ([facility]) EMERGENCY PROVIDER REPORT REPORT#:[id number] REPORT STATUS: Signed DATE:09/14/22 TIME: 420 PATIENT: BHUMIKA JONES UNIT #: [id number] ROOM/BED: [place] [address] AGE: 47 SEX: F PCP PHYS: No [...] she needs to see a social services technician but is unsure how to arrange that. 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 Impression By: NadiyaMKMIvette - Igor Almonte MD Re-Evaluation [...] 0408 0453 Lorazepam 1 MG X1ED STA 03310 DC 09/14 PO 09/15 311 0452 Patient [...] is the patient's second visit here at [facility] in the past 24 hours. She continues [...] of care. at 0449 at 0540 RPT #:[id number] END OF [id number] 20:34:00 [facility] ([facility]) EMERGENCY PROVIDER REPORT REPORT#:[id number] REPORT STATUS: Signed DATE:09/13/22 TIME: 2033 PATIENT: BHUMIKA JONES UNIT #: [id number] ROOM/BED: [address] AGE: 47 SEX: F PCP [...] 3 MG PO DAILY at 1707 RPT #:[id number] END OF [id number] 09:58:00 [facility] ([facility]) EMERGENCY PROVIDER REPORT REPORT#:[id number] REPORT STATUS: Signed DATE:09/13/22 TIME: 957 PATIENT: BHUMIKA JONES UNIT #: [id number] ROOM/BED: AGE: 47 SEX: F PCP PHYS: [...] 935 Pulse 88 09/14 935 Resp 14 03/23 0936 Last Documented: Result Date Time Pulse [...] - 8.0 pH UNITS) 6.0 Ur Specific [place] (1.001 - 1.035 SG) 1.024 Urine Protein [...] % (Auto) (14.1 - 45.4 %) 34.0 [place] % (Auto) (2.5 - 11.7 %) 10.1 Eos % (Auto) (0.0 - 6.2 %) 2.7 Baso % (Auto) (0.0 - 2.1 %) 0.7 Gran # (2.0 - 13.7 k/mm3) 3.04 Lymph # (Auto) (0.6 - 3.8 K/mm3) 1.98 [place] # (Auto) (0.11 - 0.59 K/mm3) 0.59 [...] a call to 911. at 1327 RPT #:[id number] END OF REPORTSPARTANBURG MEDICAL CENTERCR
--- NOTE | 2024-02-19 19:05 | EDPHYS ---
Physician Documentation [facility] Name: Davida Hodges Age: 49 yrs Sex: Female : 1975 Arrival Date: 02/19/2024 Time: 17:23 Bed IW1 Private MD: ED Physician Yong Banks HPI: 02/18 20:55 This 49 yrs old Female presents to ER via EMS with complaints of nothing. sb4 Historical: - Allergies: 17:28 CARBAMAZEPINE DERIVATIVES; ll1 17:28 Depakote; ll1 17:28 Tegretol; ll1 - PMHx: 17:28 Seizure; ll1 - Immunization history:: Adult Immunizations up to date. - Social history:: Smoking status: Patient denies any tobacco usage or history of. ROS: 20:57 Constitutional: Negative for fever, chills, and weight loss, sb4 20:57 All other systems are negative, Exam: 20:57 Constitutional: This is a well developed, well nourished patient who is awake, alert, sb4 and in no acute distress. Head/Face: Normocephalic, atraumatic. Eyes: Extra-ocular motions intact. Periorbital areas with no swelling, redness, or edema. ENT: Mucous membranes moist. Vital Signs: 17:29 BP 118 / 81; Pulse 81; Resp 16; Temp 98.1; Pulse Ox 100% ; Pain 0/10; ll1 17:29 Pain Scale: Adult ll1 MDM: 17:31 Patient medically screened. sb4 20:57 Data reviewed: vital signs, nurses notes, and as a result, I will discharge patient. sb4 Counseling: I had a detailed discussion with the patient and/or guardian regarding the historical points, exam findings, and any diagnostic results supporting the discharge/admit diagnosis, to return to the emergency department if symptoms worsen or persist or if there are any questions or concerns that arise at home. Administered Medications: No medications were administered Disposition: 02/19 16:22 Co-signature as Attending Physician, Yong Banks MD I reviewed the patient's care rn provided by the Advanced Practice Provider and agree with the diagnosis and treatment plan. Disposition Summary: 02/19/24 19:05 Discharge Ordered Notes: Location: Home sb4 Problem: new sb4 Symptoms: are unchanged sb4 Condition: Stable sb4 Diagnosis - Person with feared health complaint in whom no diagnosis is made sb4 Followup: sb4 - With: Emergency Department - When: As needed - Reason: Trouble breathing, Worsening of condition Forms: - Medication Reconciliation Form sb4 - Antibiotic Education sb4 - Prescription Opioid Use sb4 - Patient Portal Instructions sb4 - Leadership Thank You Letter sb4 Signatures: Yong Banks MD MD rn Isreal, GERONIMO Martinez RN ll1 Mignon Bal PA-C PA-C sb4 Corrections: (The following items were deleted from the chart) 02/18 20:57 20:55 This 49 yrs old Female presents to ER via EMS with unknown complaint. sb4sb4
--- NOTE | 2024-02-19 19:05 | ER ---
Nurse's Notes [facility] Name: Davida Hodges Age: 49 yrs Sex: Female : 1975 Arrival Date: 02/19/2024 Time: 17:23 Bed IW1 Private MD: Diagnosis: Person with feared health complaint in whom no diagnosis is made Presentation: 02/18 17:28 Chief complaint: EMS states: Speaking on cell phone during transport. No chief ll1 complaints. Coronavirus screen: Client denies travel out of the [place] in the last 14 days. At this time, the client does not indicate any symptoms associated with coronavirus-19. Ebola Screen: Patient denies travel to an Ebola-affected area in the 21 days before illness onset. Initial Sepsis Screen: Does the patient meet any 2 criteria? No. Patient's initial sepsis screen is negative. Does the patient have a suspected source of infection? No. Patient's initial sepsis screen is negative. Risk Assessment: Do you want to hurt yourself or someone else? Patient reports no desire to harm self or others. Onset of symptoms was February 19, 2024. 17:28 Method Of Arrival: EMS: [facility] ll1 17:28 Acuity: CARMITA 5 ll1 Triage Assessment: 17:28 General: Appears in no apparent distress. Behavior is calm, cooperative, appropriate ll1 for age. Pain: Denies pain. Neuro: No deficits noted. Historical: - Allergies: 17:28 CARBAMAZEPINE DERIVATIVES; ll1 17:28 Depakote; ll1 17:28 Tegretol; ll1 - PMHx: 17:28 Seizure; ll1 - Immunization history:: Adult Immunizations up to date. - Social history:: Smoking status: Patient denies any tobacco usage or history of. Vital Signs: 17:29 BP 118 / 81; Pulse 81; Resp 16; Temp 98.1; Pulse Ox 100% ; Pain 0/10; ll1 17:29 Pain Scale: Adult ll1 ED Course: 17:26 Patient arrived in ED. ra3 17:28 Triage completed. ll1 17:28 Arm band placed on. ll1 17:30 Mignon Bal PA-C is PHCP. sb4 17:31 Yong Banks MD is Attending Physician. sb4 Administered Medications: No medications were administered Outcome: 19:05 Discharge ordered by MD. ross 20:00 Patient left the ED. iw Signatures: Laila Foreman RN RN Juan Quesada RN RN ll1 Mignon Bal PA-C PA-C sb4 Alva, Ruby ra3
[2024-02-19 20:32] VITALS: BP 118/81; TEMP 98.1; O2SAT 100
== END 2024-02-19 20:00 | disposition home or self-care (01) ==
LOC: ER 17:23
DX: Z71.1 Person with feared health complaint in whom no diagnosis is made (principal)

== ENCOUNTER 2024-04-11 10:12 | Emergency (ER) | payer SELFPAY ==
--- OUTSIDE RECORDS SUMMARY | 2024-04-11 10:20 | XMS REPORT | Continuity of Care Document ---
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 2023-07-23 18:45:32 Docto r Unassigned, [place] [facility] REFERRAL- REQUEST/RESPONSE 2023-06-05 06:01:00 Doctor Unassigned, [place] [facility] REFERRAL- REQUEST/RESPONSE 2023-05-20 06:01:00 Doctor Unassigned, [place] [facility] COMP. METABOLIC PANEL (70480) 2022-09-07 01:38:[address] [facility] CBC WITH DIFF 2022-09-07 01:38:00 Tayo Boyd [facility] URINALYSIS 2022-09-07 01:38:00 Tayo Boyd [facility] XR ANKLE <3 VW LEFT 2022-09-07 00:56:[address] [facility] XR FOOT <3 VW LEFT 2022-09-07 00:56:[address] [facility] CONSENT/REFUSAL FOR DIAGNOSIS AND TREATMENT 2022-09-06 22:08:37 Doctor Unassigned, [place] [facility] CT CERVICAL SPINE WO CONTRAST 2021-10-02 21:53:[address] [facility] CT LUMBAR SPINE WO CONTRAST 2021-10-02 21:53:[address] [facility] CT THORACIC SPINE WO CONTRAST 2021-10-02 21:53:[address] [facility] XR FOREARM 2 VW RIGHT 2021-05-05 20:03:34 Jose Carlos Nunez [facility] XR WRIST 3+ VW RIGHT 2021-05-05 20:03:[address] [facility] NOTICE OF PRIVACY PRACTICES 2021-05-05 19:12:00 Doctor Unassigned, [place] [facility] CONSENT/REFUSAL FOR DIAGNOSIS AND TREATMENT 2021-05-05 19:11:19 Doctor Unassigned, [place] [facility] CONSENT/REFUSAL FOR DIAGNOSIS AND TREATMENT 2019-08-13 19:17:22 Doctor Unassigned, [place] [facility] CT HEAD WO CONTRAST 2019-07-22 22:24:[address] [facility] XR CERVICAL SPINE 2 VW 2019-07-22 21:59:[address] [facility] CBC WITH DIFFERENTIAL 2019-07-22 21:34:[address] [facility] XR CERVICAL SPINE 2 VW 2019-07-14 02:43:[address] [facility] XR ELBOW <3 VW LEFT 2019-07-14 02:43:00 Henry Owen [facility] XR KNEE <3 VW RIGHT 2019-07-14 02:43:00 Henry Owen [facility] XR SHOULDER <2 VW LEFT 2019-07-14 02:43:[address] [facility] [id number] Ecg Routine Ecg W/least 12 Lds W/i r 2017-09-24 00:00:00 Henry Contreras Encounters Start Date/Time End Date/Time Encounter Type Admission Type Attending [facility] Care Facility Care Department Encounter ID Source 2022-11-13 13:10:28 Inpatient [facility] [id number] [facility] 2022-11-05 09:23:13 Inpatient [facility] [id number] [facility] 2024-02-24 00:00:00 2024-02-24 00:00:[address] [facility] [id number] Henry Contreras 2024-02-06 11:12:07 2024-02-06 11:12:[address] [facility] [id number] Henry Contreras 2024-01-02 13:29:25 2024-01-02 13:29:25 Outpatient [facility] [id number] Henry Contreras 2024-01-01 13:05:17 2024-01-01 13:05:17 Outpatient [facility] [id number] Henry Contreras 2023-12-23 17:12:35 2023-12-23 17:12:35 Outpatient SFA [facility] [id number] Henry Contreras 2023-12-22 16:03:42 2023-12-22 16:03:42 Outpatient SFA [facility] [id number] Henry Contreras 2023-12-01 14:21:07 2023-12-01 14:21:07 Outpatient SFA [facility] [id number] Henry Contreras 2023-11-25 16:08:00 2023-11-25 16:08:00 Outpatient SFA [facility] [id number] Henry Quiles Ben 2023-11-25 00:00:00 2023-11-25 00:00:00 Outpatient Visit SFA [id number] Henry Contreras 2023-11-23 19:45:00 2023-11-24 19:04:00 Outpatient Encounter 1 [facility] [id number] [facility] 2023-11-21 19:00:00 2023-11-22 01:00:00 Emergency ER MIKE LAGUNASUR [id number] [facility] 2023-11-16 23:05:00 2023-11-21 17:28:00 Inpatient ER CHRISTINACARMELOJUAN MIGUEL [id number] [facility] 2023-11-15 16:24:00 2023-11-15 22:54:00 Emergency ER JOAO MELVINA [facility] [id number] [facility] 2023-10-28 12:27:38 2023-10-28 12:27:38 Outpatient SFA [facility] [id number] Henry Contreras 2023-10-25 15:44:11 2023-10-25 15:44:11 Outpatient SFA [facility] [id number] Henry Contreras 2023-10-25 00:00:00 2023-10-25 00:00:[address] [facility] [id number] Henry Contreras 2023-10-04 15:25:52 2023-10-04 15:25:[address] [facility] [id number] Henry Contreras 2023-10-01 00:00:00 2023-10-01 00:00:00 Telephone [facility] P[facility] 1.2.840.114 350.1.13.10 4.2.7.2.686 [id number] [facility] 2023-09-16 16:03:08 2023-09-16 16:03:[address] [facility] [id number] Henry Contreras 2023-08-01 10:00:49 2023-08-01 10:00:49 Outpatient [facility] [id number] Henry Quiles Guston 2023-07-23 14:20:00 2023-07-23 16:57:02 Outpatient INDIO OLIVEROS [facility] [id number] [facility] 2023-07-23 14:20:00 2023-07-23 16:57:02 [facility] 1.2.840.114 350.1.13.10 4.2.7.2.686 [id number] [facility] 2023-07-23 00:00:00 2023-07-23 00:00:00 Orders Only Doctor Unassigned, [place] [facility] 1.2.840.114 350.1.13.10 4.2.7.2.686 [id number] [facility] 2023-07-04 16:48:23 2023-07-04 16:48:[address] [facility] [id number] Henry Contreras 2023-06-18 10:35:36 2023-06-18 10:35:[address] [facility] [id number] Henry Contreras 2023-06-05 00:00:00 2023-06-05 00:00:00 Orders Only Doctor Unassigned, [place] [facility] 1.2.840.114 350.1.13.10 4.2.7.2.686 [id number] [facility] 2023-06-04 16:00:39 2023-06-04 16:00:39 Outpatient [facility] [id number] Henry Contreras 2023-05-24 15:38:52 2023-05-24 15:38:52 Outpatient [facility] [id number] Henry Quiles Ben 2023-05-22 00:00:00 2023-05-22 00:00:00 Letter (Out) Neurology [facility] 1.2.840.114 350.1.13.10 4.2.7.2.686 [id number] [facility] 2023-05-20 00:00:00 2023-05-20 00:00:00 Orders Only Doctor Unassigned, [place] [facility] 1.2.840.114 350.1.13.10 4.2.7.2.686 [id number] [facility] 2023-05-17 15:07:14 2023-05-17 15:07:[address] [facility] [id number] Henry Contreras 2023-03-02 12:27:43 2023-03-02 12:27:43 Outpatient [facility] [id number] Henry Contreras 2023-01-09 17:11:26 2023-01-09 17:11:[address] [facility] [id number] Henry Conterras 2022-11-04 14:04:00 2022-11-05 11:09:00 Emergency E JESS PAIGE [facility] [id number] [facility] 2022-09-24 12:33:00 2022-09-24 12:51:00 Emergency Heri Snow [facility] 1.840.114 350.1.13.10 4.2.7.2.686 [id number] [facility] 2022-09-22 00:00:00 2022-09-22 00:00:00 Nurse Triage Madhavi Mcginnis [facility] 1.840.114 350.1.13.10 4.2.7.2.686 [id number] [facility] 2022-09-18 10:09:00 2022-09-19 14:28:00 Inpatient EM Marly Mendenhall [facility] OBSE [id number] [facility] 2022-09-16 22:50:00 2022-09-17 01:40:00 Emergency EM Asim Jack [facility] FABI [id number] [facility] 2022-09-14 14:52:00 2022-09-15 14:00:00 Inpatient EM Vladimir Forbes [facility] TELE [id number] [facility] 2022-09-13 09:34:00 2022-09-13 13:00:00 Emergency EM Yosi Woodallew [facility] FABI [id number] [facility] 2022-09-10 23:39:00 2022-09-11 11:28:00 Emergency EM Russel Sewell [facility] MEXP [id number] [facility] 2022-09-10 18:57:00 2022-09-10 20:20:00 Emergency Lisa Morfin [facility] 1.840.114 350.1.13.10 4.2.7.2.686 [id number] [facility] 2022-09-10 18:57:00 2022-09-10 20:20:00 Emergency X SANDRITA KEY [facility] ERT [id number] [facility] 2022-09-09 20:45:00 2022-09-09 22:46:00 Emergency X SANDRITA KEY [facility] ERT [id number] [facility] 2022-09-09 20:45:00 2022-09-09 22:46:00 Emergency Sandrita Key [facility] 1.2.840.114 350.1.13.10 4.2.7.2.686 [id number] [facility] 2022-09-06 18:09:00 2022-09-07 00:51:00 Emergency X TAYO BOYD [facility] ERT [id number] [facility] 2022-09-06 18:09:00 2022-09-07 00:51:00 Emergency Juan Franciscodon Tayo [facility] 1.2.840.114 350.1.13.10 4.2.7.2.686 [id number] [facility] 2022-08-21 14:11:33 2022-08-21 14:11:33 Outpatient [facility] [id number] Henry Contreras 2022-07-17 15:03:48 2022-07-17 15:03:48 Outpatient [facility] [id number] Henry Contreras 2021-10-02 15:56:00 2021-10-02 19:00:00 Emergency X JAVED FRAKN [facility] ERT [id number] [facility] 2021-10-02 15:56:00 2021-10-02 19:00:00 Emergency Javed Frank [facility] 1.2.840.114 350.1.13.10 4.2.7.2.686 [id number] [facility] 2021-05-05 13:22:00 2021-05-05 14:48:00 Emergency X DEON NUNEZ [facility] ERT [id number] [facility] 2021-05-05 13:22:00 2021-05-05 14:48:00 Emergency Deon Nunez [facility] 1.2.840.114 350.1.13.10 4.2.7.2.686 [id number] [facility] 2021-05-05 00:00:00 2021-05-05 00:00:00 Orders Only Doctor Unassigned, [place] [facility] 1.2.840.114 350.1.13.10 4.2.7.2.686 [id number] [facility] 2019-12-15 17:11:56 2019-12-15 18:04:00 Emergency Kp Gilliland [facility] 1.2.840.114 350.1.13.10 4.2.7.2.686 [id number] 2019-12-15 17:11:56 2019-12-15 18:04:00 Emergency Kp Gilliland Marissa [facility] 1.2.840.114 350.1.13.10 4.2.7.2.686 [id number] [facility] 2019-12-15 17:11:56 2019-12-15 17:11:56 Emergency X Kp GILLILAND [facility] ERT [id number] [facility] 2019-10-25 18:31:31 2019-10-25 19:21:00 Emergency Kristin Miller [facility] 1.2.840.114 350.1.13.10 4.2.7.2.686 [id number] 2019-10-25 18:31:31 2019-10-25 19:21:00 Emergency Kristin Miller [facility] 1.2.840.114 350.1.13.10 4.2.7.2.686 [id number] [facility] 2019-10-25 18:31:31 2019-10-25 18:31:31 Emergency X PAUL, CYNISE [facility] ERT [id number] [facility] 2019-08-13 13:30:00 2019-08-13 14:36:00 Emergency Floridalma Evans [facility] 1.2.840.114 350.1.13.10 4.2.7.2.686 [id number] 2019-08-13 13:30:00 2019-08-13 14:36:00 Emergency Floridalma Evans [facility] 1.2.840.114 350.1.13.10 4.2.7.2.686 [id number] [facility] 2019-08-13 13:30:00 2019-08-13 14:36:00 Emergency X FLORIDALMA EVANS [facility] ERT [id number] [facility] 2019-07-22 13:42:11 2019-07-22 19:02:00 Emergency Unknown, Attending Lisa Morfin [facility] 1.2.840.114 350.1.13.10 4.2.7.2.686 [id number] 2019-07-22 13:42:11 2019-07-22 19:02:00 Emergency X LISA MORFIN [facility] ERT [id number] [facility] 2019-07-22 13:42:11 2019-07-22 19:02:00 Emergency Unknown, Attending Lisa Morfin [facility] 1.2.840.114 350.1.13.10 4.2.7.2.686 [id number] [facility] 2019-07-13 20:17:19 2019-07-13 21:48:00 Emergency X HENRY OWEN [facility] ERT [id number] [facility] 2019-07-13 20:17:19 2019-07-13 21:48:00 Emergency Trena Henry [facility] 1.2.840.114 350.1.13.10 4.2.7.2.686 [id number] [facility] 2019-07-10 14:26:03 2019-07-10 16:33:00 Emergency X DEBBIE PAYTON [facility] ERT [id number] [facility] 2019-07-10 14:26:03 2019-07-10 16:33:00 Emergency Debbie Payton [facility] 1.2.840.114 350.1.13.10 4.2.7.2.686 [id number] [facility] 2019-07-04 19:09:02 2019-07-04 22:51:00 Emergency X LISA MORFIN [facility] ERT [id number] [facility] 2019-06-30 10:33:08 2019-06-30 13:10:00 Emergency X DEON NUNEZ [facility] ERT [id number] [facility] 2019-05-25 11:58:19 2019-05-25 15:37:00 Emergency X DEON NUNEZ [facility] ERT [id number] [facility] 2019-04-09 22:29:37 2019-04-09 23:28:00 Emergency X FLORIDALMA EVANS [facility] ERT [id number] [facility] 2019-01-21 18:38:01 2019-01-21 19:59:00 Emergency Le Ramirez [facility] 1.2.840.114 350.1.13.10 4.2.7.2.686 [id number] 2019-01-21 18:38:01 2019-01-21 19:59:00 Emergency Le Ramirez [facility] 1.2.840.114 350.1.13.10 4.2.7.2.686 [id number] [facility] Results Test Description Test Time Test Comments Results Result Co mments Source Henry Daniel [id number] 04:20:00* Test Item Value Reference Range Interpretation Comme nts FT4 (test code = FT4) 1.05 ng/dL 0.78-2.19 T3 [id number] 04:20:00* Test Item Value Reference Range Interpretation Comme nts T3UP (test code = T3UP) 40.9 % 23.5-40.5 H Thyroxine (T4) free index in Serum or [id number] 04:19:00* Test Item Value Reference Range Interpretation Comme [facility] Thyroxine (T4) free index in Serum or Plasma (test code = 59582-8) 1.05 ng/dL 0.78-2.19 N [facility])Thyroid hormone uptake (T-uptake) in Serum or P 2023-11-24 04:18:00* Test Item Value Reference Range Interpretation Comme nts Thyroid hormone uptake (T-up take) in Serum or Plasma (test code = 55045-0) 40.9 % 23.5-40.5 H [facility])URINE DRUG [id number] 00:43:00* Test Item Value Reference Range Interpretation [...] abuse 5 panel - Urine by Screen [id number] 00:40:00 NegativeNegativeNegativeNegativeNegativeNegativeNegativeReg[facility]one Health Center)[id number] 00:33:00* Test Item Value Reference Range Interpretation [...] /HPF 0-2 Urinalysis panel - Urine by [id number] 00:33:00* Test Item Value Reference Range Interpretation Comme nts Ketones [Presence] in Urine (test code = 53924-0) 15 MG/DL NEG N pH of Urine (test code = 2756-5) 5.5 1 5.0-7.5 N Urobilinogen [Presence] in U rine (test code = 91567-4) 0.2 EU/DL 0.2-1.0 N Specific gravity of Urine (t est code = 2965-2) 1.013 1 1.0-1.025 N Leukocytes [Presence] in Uri ne sediment by Light microscopy (test code = 43070-2) 10 /HPF 0.0-5.0 H Erythrocytes [Presence] in U rine sediment by Light microscopy (test code = 34082-1) 2 /HPF 0.0-2.0 N [facility])VITAMIN [id number] 22:47:00* Test Item Value Reference Range Interpretation Comme nts B12 (test code = B12) 880 pg/mL 239-931 [id number] 22:47:00* Test Item Value Reference Range Interpretation Comme nts FOLATE (test code = FOLATE) 8.9 ng/mL 2.76-20.0 THYROID STIMULATION [id number] 22:47:00* Test Item Value Reference Range Interpretation Comme nts TSH (test code = TSH) 6.62 UIU/ML 0.465-4.68 H Cobalamin (Vitamin B12) [Mass/volume] in [id number] 22:47:00* Test Item Value Reference Range Interpretation Comme nts Cobalamin (Vitamin B12) [Mass/volume] in Serum or Plasma (test code = 2132-9) 880 pg/mL 239.0-931.0 N [facility])Folate [Mass/volume] in Serum or [id number] 22:47:00* Test Item Value Reference Range Interpretation Comme nts Folate [Mass/volume] in Seru m or Plasma (test code = 2284-8) 8.9 ng/mL 2.76-20.0 N [facility])Thyrotropin in Serum or [id number] 22:47:00* Test Item Value Reference Range Interpretation Comme nts Thyrotropin in Serum or Plas ma (test code = 24217-3) 6.62 UIU/ML 0.465-4.68 H [facility])ER SCREEN FOR HIV 1/ 22:46:00* Test Item Value Reference Range Interpretation Comme [facility] HIV 1/2 AB (test code = SCRN HIV) NEGATIVE NEGATIVE This test is us ed for SCREENING purposes only. All reactive results are prelimenary and confirmation results will follow. HIV 1+2 Ab [Units/volume] in [id number] 22:45:00[facility]HEPAT[facility] ANTIBODY [id number] 22:28:00* Test Item Value Reference Range Interpretation Comme nts SCRN HCV (test code = SCRN HCV) NEGATIVE NEGATIVE Hepatitis C Anti body test is for screening purposes only. All reactives will be confirmed by additional testing. Hepatitis C virus Ab [Presence] in [id number] 22:27:00[facility]B-H[facility] QUAL (KIT)2023-11-23 22:01:00* Test Item Value Reference Range Interpretation Comme nts HCGQUAL (test code = HCGQUAL) NEGATIVE NEGATIVE URINE: NEGATIVE = < 20 mIU/ML; POSITIVE= >/= 20 mIU/ML SERUM: NEGATIVE = < 10 mIU/ML; POSITIVE= >/= 10 mIU/ML SOURCE (test code = SOURCE) SERUM HCG INTERNAL POSITIVE CNTRL (test code = HCGIPC) PASS PASS HCG LOT # (test code = UHCGLOT) [id number] HCG EXPIRATION DATE (test code = UHCGEXP) Choriogonadotropin.beta subunit ( [id number] 22:01:00* Test Item Value Reference Range Interpretation Comme nts Specimen source [Identifier] of Body fluid (test code = 41972-3) SERUM N Reagent Lot number (test cod e = 24381-3) 1 N [facility])CT HEAD W/O [id number] 22:00:00 [facility] [place]FLUGERV[place]EName: ROBERT JONATHAN : 1975 Sex: F[address] [id number] IMAGING REPORTPatient Name: JONATHAN JONESDate of Service: [id number]: 48 Sex: F Order #: [id number] Room: ERSDOB: 1975 X-Ray Number: [id number] Record Number: [id number] Hospital Number: [id number] Physician: Nury MEJIASing Physician: LAWRENCE MEJIASPROCEDURE: KANAHEAD W/O CONTINDICATIONS: dx: [...] 21:59:03CT Head and Orbit - bilateral WO [id number] 21:59:03 ORDER 1400: CT HEAD W/O CONT (LOINC: 96629-3)ORDER DATE: November 24, 2023 12:50:00 AM [facility] ([place])CT ABDOMEN/PELVIS [id number] 21:54:00 [facility] PFLUGERVILLEName: ROBERT, CONCEPTION : 1975 Sex: F[address] [id number] IMAGING REPORTPatient Name: ROBERT CONCEPTIONDate of Service: [id number]: 48 Sex: F Order #: [id number] Room: ERSDOB: 1975 X-Ray Number: [id number] Record Number: [id number] Hospital Number: [id number] Physician: LAWRENCE MEJIASOrdering Physician: LAWRENCE MEJIASPROCEDURE: CT [...] YUNIOR MCKEON 2023-11-23 21:53:03 CT Abdomen and [id number] 21:53:03ORDER 1500: CT ABDOMEN/PELVIS WITHOUT (LOINC: 33412-7)ORDER DATE: November 24, 2023 12:50:00 AM [facility])[id number] 21:31:00* Test Item Value Reference Range Interpretation [...] 70-99 Fasting glucos e normal <100 MG/DL- [employer] recommendation CALCIUM (test code = [...] of age is not validated by the patent searcher and may not represent the patients true [...] should be used in the calculation". CREATINE [id number] 21:31:00* Test Item Value Reference Range Interpretation Comme nts CK (test code = CK) 115 U/L 30-135 BLOOD ALCOHOL (ETOH)2023-11-23 21:31:00* Test Item Value Reference Range Interpretation Comme nts ALCOHOL BLOOD LEVEL (test code = ALC BLD) <10 MG/DL 0-10 Results ar e to be used for medical purposes (treatment) only. Not intended for non medical purposes. Ethanol [Mass/volume] in [id number] 21:30:00* Test Item Value Reference Range Interpretation Comme nts Ethanol [Mass/volume] in Blo od (test code = 5640-8) <10 0.0-10.0 [facility])Creatine kinase isoenzymes [interpretation] in 2023-11-23 21:30:00* Test Item Value Reference Range Interpretation Comme nts Creatine kinase isoenzymes [interpretation] in Serum or Plasma Narrative (test code = 36910-4) 115 U/L 30.0-135.0 [facility])Comprehensive metabolic 2000 panel - Serum or P 2023-11-23 21:27:00* Test Item Value Reference Range Interpretation Comme nts Sodium [Moles/volume] in Blood (test code = 2947-0) 137 MMOL/L 137.0-145.0 N Potassium [Moles/volume] in Blood (test code = 6298-4) 4.2 MMOL/L 3.5-5.1 N Chloride [Moles/volume] in Blood (test code = 2069-3) 100 MMOL/L 98.0-107.0 N Carbon dioxide, total [Moles/volume] in Blood (test code = 18694-6) 24 MMOL/L 22.0-30.0 N Urea nitrogen [Mass/volume] in Serum or Plasma (test code = 3094-0) 16 MG/DL 7.0-17.0 N Creatinine [Mass/volume] in Blood (test code = 40357-8) 0.6 MG/DL 0.7-1.2 L Glucose [Mass/volume] in Blood (test code = 2339-0) 80 MG/DL 70.0-99.0 N Calcium [Mass/volume] in Serum or Plasma (test code = 95527-6) 10.3 MG/DL 8.4-10.2 H Protein [Mass/volume] in Serum or Plasma (test code = 2885-2) 9.9 G/DL 6.3-8.2 H Albumin [Presence] in Serum or Plasma (test code = 93051-4) 4.7 G/DL 3.5-5.0 N Bilirubin direct and total panel [Mass/volume] - Serum or Plasma (test code = 55969-3) 0.8 MG/DL 0.2-1.3 N Aspartate aminotransferase [Enzymatic [...] 50 percent [- Reported] (test code = 82892-7) 113.0 mL/min/1.73m2 N Anion gap in Serum or Plasma (test code = 57331-2) 13 mmol/L 4.0-12.0 [id number] 21:15:00* Test Item Value Reference Range Interpretation [...] 1.2-7.2 CBC W Auto Differential panel - [id number] 21:15:00* Test Item Value Reference Range Interpretation Comme nts Leukocytes other [Identifier ] in Blood by Automated count (test code = 21140-2) 4.5 K/UL 3.5-10.9 N Erythrocytes [#/volume] in B lood (test code = 82592-1) 4.91 M/UL 4.0-5.0 N Hemoglobin A/Hemoglobin.tota l in Blood (test code = 4546-8) 13.8 G/DL 11.5-15.5 N Hematocrit [Volume Fraction] of Blood (test code = 77390-3) 42.4 % 34.0-46.0 N Erythrocyte mean corpuscular volume [Entitic volume] (test code = 96928-1) 86.4 FL 80.0-98.0 N Erythrocyte mean corpuscular hemoglobin [Entitic mass] (test code = 10884-8) 28.1 PG 28.0-32.0 N Erythrocyte mean corpuscular hemoglobin concentration [Mass/volume] (test code = 34957-5) 32.5 G/DL 32.5-36.5 N Erythrocyte distribution wid th [Ratio] (test code = 52626-3) 14.9 % 11.5-14.5 H Platelets panel - Blood by Automated count (test code = 60381-0) 124 K/UL 150.0-450.0 L Platelet mean volume [Entiti c volume] in Blood by Automated count (test code = 08779-8) 10.0 FL 7.4-10.4 N Neutrophils.segmented/100 leukocytes in Blood (test code = 37649-7) 53.3 % 40.0-75.0 N Lymphocytes Variant/100 leuk ocytes in Blood (test code = 00761-2) 33.9 % 24.0-44.0 N Lymphocytes+Monocytes/100 leukocytes in Blood (test code = 4662-3) 10.0 % 0.0-13.0 N Eosinophils [#/volume] in Bl ood (test code = 98147-0) 2.2 % 0.0-4.0 N Basophils [#/volume] in Bloo d (test code = 39123-3) 0.4 % 0.0-2.0 N Immature granulocytes/100 leukocytes in Blood (test code = 23347-6) 0.2 % 0.0-1.0 N Nucleated erythrocytes [#/vo lume] in Blood (test code = 37817-5) 0 /100 WBC N Neutrophils [#/volume] in Bl ood (test code = 16470-7) 2.4 K/UL 1.2-7.2 N [facility] ([place])PAP TEST, THINPREP, [id number] 16:02:24* Test Item Value Reference Range Interpretation Comme nts SOURCE: (test code = 8001) Cervical/Endoce rvical SLIDES: (test code = 8011) 1 LMP: (test code = 8021) SEE NOTE POST MENOPAUSAL SPECIMEN ADEQUACY: (test code = 92918) (NOTE) Satisfactory for evaluation. Endocervical cells/transformation zone component present. INTERPRETATION: (test code = 13588) NILM/NO EPITH. ABNORMALITY;SEE BELOW --- - NEGATIVE FOR INTRAEPITHELIAL LESION OR MALIGNANCY (NILM) ---- RECYCLING ASSISTANT : (test code = 8101) Jami Smalls LOCATION: (test code = 18085) (NOTE) Specimens proces sed and interpreted at [facility], [address] [place] [address], , CLIA: [id number] CPT: (test code = 8140) (NOTE) 25216 UNLESS OTH ERWISE INDICATED, COMPUTER AIDED AND RECYCLING ASSISTANT SCREENING PERFORMED. The Pap test is a screening test with an inherent, but low probability of error. Your patient should be reminded to consult you immediately if she experiences any suspicious signs or symptoms, regardless of her Pap test result. An alternate report format containing images or consolidated prior Pap history is available as applicable. HPV HIGH RISK WITH GENOTYPE, [id number] 15:53:52* Test Item Value Reference Range Interpretation Comme nts HPV HIGH RISK INTERP (test code = 16699) NEGATIVE NEGATIVE HPV 16 (test code = 32704) NEGATIVE HPV 18 (test code = 70575) NEGATIVE HPV, HR, OTHER GENOTYPES (test code = 76218) NEGATIVE Testing methodol ogy is real-time PCR [...] PERFORMED AT [facility] [address] [place] [address] GREENHOUSE TECHNICIAN: JATIN FELIPE M.D. [place] NUMBER [id number] [facility] [place]. [id number] HPV HIGH RISK WITH GENOTYPE, [id number] 00:00:00* Test Item Value Reference Range Interpretation Comme nts HPV HIGH RISK INTERP (test c ode = 79699) NEGATIVE HPV 16 (test code = 39642) NEGATIVE HPV 18 (test code = 60907) NEGATIVE HPV, HR, OTHER GENOTYPES (te st code = 09078) NEGATIVE PDFE (test code = PDFReport) PDF Henry Quiles AustinPAP TEST, THINPREP, [id number] 00:00:00* Test Item Value Reference Range Interpretation Comme nts SOURCE: (test code = 8001) Cervical/Endocervical SLIDES: (test code = 8011) 1 LMP: (test code = 8021) SEE NOTE SPECIMEN ADEQUACY: (test code = 47880) (NOTE) INTERPRETATION: (test code = 25764) NILM/NO EPITH. ABNORMALITY;SEE BELOW RECYCLING ASSISTANT: (test code = 8101) Jami Smalls LOCATION: (test code = 39094) (NOTE) CPT: (test code = 8140) (NOTE) Henry F AustinHPV HIGH RISK WITH GENOTYPE, [id number] 00:00:00* Test Item Value Reference Range Interpretation Comme nts HPV HIGH RISK INTERP (test c ode = 70688) NEGATIVE HPV 16 (test code = 89697) NEGATIVE HPV 18 (test code = 23259) NEGATIVE HPV, HR, OTHER GENOTYPES (te st code = 19690) NEGATIVE PDFE (test code = PDFReport) PDF Henry F AustinPAP TEST, THINPREP, [id number] 00:00:00* Test Item Value Reference Range Interpretation Comme nts SOURCE: (test code = 8001) Cervical/Endocervical SLIDES: (test code = 8011) 1 LMP: (test code = 8021) SEE NOTE SPECIMEN ADEQUACY: (test code = 04611) (NOTE) INTERPRETATION: (test code = 58493) NILM/NO EPITH. ABNORMALITY;SEE BELOW RECYCLING ASSISTANT: (test code = 8101) Jami Smalls LOCATION: (test code = 41442) (NOTE) CPT: (test code = 8140) (NOTE) Henry Quiles AustinHPV HIGH RISK WITH GENOTYPE, [id number] 00:00:00* Test Item Value Reference Range Interpretation Comme nts HPV HIGH RISK INTERP (test c ode = 28036) NEGATIVE HPV 16 (test code = 97279) NEGATIVE HPV 18 (test code = 87560) NEGATIVE HPV, HR, OTHER GENOTYPES (te st code = 28340) NEGATIVE PDFE (test code = PDFReport) PDF Henry ContrerasPAP TEST, THINPREP, [id number] 00:00:00* Test Item Value Reference Range Interpretation Comme nts SOURCE: (test code = 8001) Cervical/Endocervical SLIDES: (test code = 8011) 1 LMP: (test code = 8021) SEE NOTE SPECIMEN ADEQUACY: (test code = 22665) (NOTE) INTERPRETATION: (test code = 45640) NILM/NO EPITH. ABNORMALITY;SEE BELOW RECYCLING ASSISTANT: (test code = 8101) Jami Smalls LOCATION: (test code = 34803) (NOTE) CPT: (test code = 8140) (NOTE) Henry ContrerasPAP TEST, THINPREP, IMAGED [ADDED]2023-10-10 00:00:00* Test Item Value Reference Range Interpretation Comme nts SOURCE: (test code = 8001) Unspecified SLIDES: (test code = 8011) 2 LMP: (test code = 8021) NOT GIVEN SPECIMEN ADEQUACY: (test code = 03616) (NOTE) INTERPRETATION: (test code = 71849) UNSATISFACTORY; SEE BELOW OTHER COMMENTS: (test code = 8081) (NOTE) RECYCLING ASSISTANT: (test code = 8101) Jose Bustillos QC TECHNOLOGIST: (test code = 8111) Jason WhitmanSCT(ASCP),IAC LOCATION: (test code = 76706) (NOTE) CPT: (test code = 8140) (NOTE) Henry Quiles AustinHPV HIGH RISK IF ASC/LSIL, THINPREP [ADDED]2023-10-10 00:00:00* Test Item Value Reference Range Interpretation Comme nts HPV HIGH RISK IF ASC/LSIL, THINPREP (test code = 90772) CRITERIA NOT MET Henry Quiles AustinPAP TEST, THINPREP, IMAGED [ADDED]2023-10-10 00:00:00* Test Item Value Reference Range Interpretation Comme nts SOURCE: (test code = 8001) Unspecified SLIDES: (test code = 8011) 2 LMP: (test code = 8021) NOT GIVEN SPECIMEN ADEQUACY: (test code = 81662) (NOTE) INTERPRETATION: (test code = 62148) UNSATISFACTORY; SEE BELOW OTHER COMMENTS: (test code = 8081) (NOTE) RECYCLING ASSISTANT: (test code = 8101) Jose Bustillos QC TECHNOLOGIST: (test code = 8111) Jason WhitmanSCT(ASCP),IAC LOCATION: (test code = 36566) (NOTE) CPT: (test code = 8140) (NOTE) Henry Quiles AustinHPV HIGH RISK IF ASC/LSIL, THINPREP [ADDED]2023-10-10 00:00:00* Test Item Value Reference Range Interpretation Comme nts HPV HIGH RISK IF ASC/LSIL, THINPREP (test code = 38494) CRITERIA NOT MET Henry Quiles AustinPAP TEST, THINPREP, IMAGED [ADDED]2023-10-10 00:00:00* Test Item Value Reference Range Interpretation Comme nts SOURCE: (test code = 8001) Unspecified SLIDES: (test code = 8011) 2 LMP: (test code = 8021) NOT GIVEN SPECIMEN ADEQUACY: (test code = 56203) (NOTE) INTERPRETATION: (test code = 00810) UNSATISFACTORY; SEE BELOW OTHER COMMENTS: (test code = 8081) (NOTE) RECYCLING ASSISTANT: (test code = 8101) Jose Bustillos QC TECHNOLOGIST: (test code = 8111) Jason WhitmanSCT(ASCP),IAC LOCATION: (test code = 32188) (NOTE) CPT: (test code = 8140) (NOTE) Henry Quiles AustinHPV HIGH RISK IF ASC/LSIL, THINPREP [ADDED]2023-10-10 00:00:00* Test Item Value Reference Range Interpretation Comme nts HPV HIGH RISK IF ASC/LSIL, THINPREP (test code = 92842) CRITERIA NOT MET Henry Quiles AustinGONORRHEA, NAAT, THINPREP [ADDED]2023-10-08 00:00:00* Test Item Value Reference Range Interpretation Comme nts GONORRHEA, NAAT, THINPREP (t est code = 67460) NEGATIVE Henry Quiles AustinCHLAMYDIA, NAAT, THINPREP [ADDED]2023-10-08 00:00:00* Test Item Value Reference Range Interpretation Comme nts CHLAMYDIA, NAAT, THINPREP (t est code = 17187) NEGATIVE PDFE (test code = PDFReport) PDF Henry Quiles AustinGONORRHEA, NAAT, THINPREP [ADDED]2023-10-08 00:00:00* Test Item Value Reference Range Interpretation Comme nts GONORRHEA, NAAT, THINPREP (t est code = 43440) NEGATIVE Henry Quiles AustinCHLAMYDIA, NAAT, THINPREP [ADDED]2023-10-08 00:00:00* Test Item Value Reference Range Interpretation Comme nts CHLAMYDIA, NAAT, THINPREP (t est code = 74621) NEGATIVE PDFE (test code = PDFReport) PDF Henry Quiels AustinGONORRHEA, NAAT, THINPREP [ADDED]2023-10-08 00:00:00* Test Item Value Reference Range Interpretation Comme nts GONORRHEA, NAAT, THINPREP (t est code = 67956) NEGATIVE Henry Quiles AustinCHLAMYDIA, NAAT, THINPREP [ADDED]2023-10-08 00:00:00* Test Item Value Reference Range Interpretation Comme nts CHLAMYDIA, NAAT, THINPREP (t est code = 30606) NEGATIVE PDFE (test code = PDFReport) PDF Henry Quiles AustinTSH, THIRD [id number] 08:14:44* Test Item Value Reference Range Interpretation Comme nts TSH, THIRD GENERATION (test code = 2821) 5.200 UIU/ML 0.400-4.100 H UNLESS OTHERWISE INDICATED, ALL TESTING PERFORMED AT [facility] [address] [place] [address] GREENHOUSE TECHNICIAN: Derek FINNIA NUMBER [id number] [facility]. [id number] 00:00:00* Test Item Value Reference Range Interpretation Comme nts TSH, THIRD GENERATION (test code = 2821) 5.200 UIU/ML Henry [id number] 00:00:00* Test Item Value Reference Range Interpretation Comme nts TSH, THIRD GENERATION (test code = 2821) 5.200 UIU/ML Henry F [id number] 00:00:00* Test Item Value Reference Range Interpretation Comme nts TSH, THIRD GENERATION (test code = 2821) 5.200 UIU/ML Henry ContrerasTSH, THIRD [id number] 23:53:27* Test Item Value Reference Range Interpretation Comme nts TSH, THIRD GENERATION (test code = 2821) 11.100 UIU/ML 0.400-4.100 H COMPREHENSIVE METABOLIC [id number] 23:46:03* Test Item Value Reference Range Interpretation Comme nts GLUCOSE (test code = 2217) 97 MG/DL 70-99 BUN (test code = 2208) 7 MG/DL 6-20 CREATININE (test code = 2214) 0.61 MG/DL 0.60-1.30 eGFR (2020 CKD-EPI) (test code = 58580) 110 ML/MIN/1.73 >60 CALC BUN/CREAT (test code [...] 1.0-2.6 L BILIRUBIN, TOTAL (test code = 7) 0.2 MG/DL <=1.2 ALKALINE PHOSPHATASE (test code = 2204) 70 U/L 40-125 AST (test code = 2218) 20 U/L 9-40 ALT (test code = 2219) 13 U/L 5-40 CBC W/AUTO DIFF WITH [id number] 08:48:44* Test Item Value Reference Range Interpretation [...] 0.00-0.10 ABS NUCLEATED RBCS (test code = 36895) 0.00 K/UL 0.00-0.11 UNLESS OTHER MONTOYA INDICATED, ALL TESTING PERFORMED AT [facility] [address] [place] [address] GREENHOUSE TECHNICIAN: JATIN FELIPE M.D. CLIA NUMBER [id number] [facility] [place]. [id number] 00:00:00* Test Item Value Reference Range Interpretation Comme nts TSH, THIRD GENERATION (test code = 2821) 11.100 UIU/ML Henry ContrerasCBC W/AUTO [id number] 00:00:00* Test Item Value Reference Range Interpretation [...] ABS NUCLEATED RBCS (test cod e = 11933) 0.00 K/UL Henry ContrerasCOMPREHENSIVE METABOLIC [id number] 00:00:00* Test Item Value Reference Range Interpretation Comme nts GLUCOSE (test code = 2217) 97 MG/DL BUN (test code = 2208) 7 MG/DL CREATININE (test code = 2214) 0.61 MG/DL eGFR (2020 CKD-EPI) (test code = 87653) 110 ML/MIN/1.73 CALC BUN/CREAT (test code = [...] (test code = 2219) 13 U/L Henry [id number] 00:00:00* Test Item Value Reference Range Interpretation Comme nts TSH, THIRD GENERATION (test code = 2821) 11.100 UIU/ML Henry ContrerasCBC W/AUTO [id number] 00:00:00* Test Item Value Reference Range Interpretation [...] ABS NUCLEATED RBCS (test cod e = 04533) 0.00 K/UL Henry ContrerasCOMPREHENSIVE METABOLIC [id number] 00:00:00* Test Item Value Reference Range Interpretation Comme nts GLUCOSE (test code = 2217) 97 MG/DL BUN (test code = 2208) 7 MG/DL CREATININE (test code = 2214) 0.61 MG/DL eGFR (2020 CKD-EPI) (test code = 66489) 110 ML/MIN/1.73 CALC BUN/CREAT (test code = [...] (test code = 2219) 13 U/L Henry [id number] 00:00:00* Test Item Value Reference Range Interpretation Comme nts TSH, THIRD GENERATION (test code = 2821) 11.100 UIU/ML eHnry ContrerasCBC W/AUTO [id number] 00:00:00* Test Item Value Reference Range Interpretation [...] ABS NUCLEATED RBCS (test cod e = 23033) 0.00 K/UL Henry ContrerasCOMPREHENSIVE METABOLIC [id number] 00:00:00* Test Item Value Reference Range Interpretation Comme nts GLUCOSE (test code = 2217) 97 MG/DL BUN (test code = 2208) 7 MG/DL CREATININE (test code = 2214) 0.61 MG/DL eGFR (2020 CKD-EPI) (test code = 97272) 110 ML/MIN/1.73 CALC BUN/CREAT (test code = [...] (test code = 2219) 13 U/L Henry Cont[id number] 01:13:06* Test Item Value Reference Range Interpretation Comme nts TRANSFERRIN (test code = 4936) 315 MG/DL 200-360 UNLESS OTHERWISE INDICATED, ALL TESTING PERFORMED AT [facility] [address] [place] [address] GREENHOUSE TECHNICIAN: JATIN FELIPE M.D. IA NUMBER [id number] [place]. [id number] LIPID [id number] 01:12:48* Test Item Value Reference Range Interpretation [...] SPECIMENS. FOR MOREINFORMATION, SEE CLIENT ANNOUNCEMENT AT [email or web address] RISK RATIO LDL/HDL (test code = 2238) 1.34 RATIO <3.22 COMPREHENSIVE METABOLIC [id number] 01:12:48* Test Item Value Reference Range Interpretation Comme nts GLUCOSE (test code = 2216) 92 MG/DL 70-99 BUN (test code = 2207) 15 MG/DL 6-20 CREATININE (test code = 2213) 0.65 MG/DL 0.60-1.30 eGFR (2020 CKD-EPI) (test code = 07445) 108 ML/MIN/1.73 >60 CALC BUN/CREAT (test code [...] IRON BINDING CAPACITY AND IRON AND % [id number] 01:12:48* Test Item Value Reference Range Interpretation Comme nts IRON, SERUM (test code = 2221) 51 UG/DL 37-145 UNSATURATED IBC (test code = 95923) 356 UG/DL 112-347 H CALC TOTAL IBC (test code = 2076) 407 UG/DL 250-450 CALC % IRON SAT (test code = 2078) 13 % 20-50 L [id number] 00:59:24* Test Item Value Reference Range Interpretation Comme nts FERRITIN (test code = 2074) 20 NG/ML 13-200 LIPID [id number] 00:00:00* Test Item Value Reference Range Interpretation Comme nts CHOLESTEROL (test code = 2210) 191 MG/DL TRIGLYCERIDES (test code = 2232) 89 MG/DL HDL CHOLESTEROL (test code = 2220) 74 MG/DL CALC LDL CHOL (test code = 2237) 99 MG/DL RISK RATIO LDL/HDL (test cod e = 2238) 1.34 RATIO Henry ContrerasCOMPREHENSIVE METABOLIC [id number] 00:00:00* Test Item Value Reference Range Interpretation Comme nts GLUCOSE (test code = 2217) 92 MG/DL BUN (test code = 2208) 15 MG/DL CREATININE (test code = 2214) 0.65 MG/DL eGFR (2020 CKD-EPI) (test code = 34216) 108 ML/MIN/1.73 CALC BUN/CREAT (test code = [...] AustinIRON BINDING CAPACITY AND IRON AND % [id number] 00:00:00* Test Item Value Reference Range Interpretation Comme nts IRON, SERUM (test code = 2221) 51 UG/DL UNSATURATED IBC (test code = ) 356 UG/DL CALC TOTAL IBC (test code = 2076) 407 UG/DL CALC % IRON SAT (test code = 2078) 13 % Henry Quiles [id number] 00:00:00* Test Item Value Reference Range Interpretation Comme nts FERRITIN (test code = 2075) 20 NG/ML Henry C[id number] 00:00:00* Test Item Value Reference Range Interpretation Comme nts TRANSFERRIN (test code = 4936) 315 MG/DL Henry ContrerasLIPID [id number] 00:00:00* Test Item Value Reference Range Interpretation Comme nts CHOLESTEROL (test code = 2210) 191 MG/DL TRIGLYCERIDES (test code = 2232) 89 MG/DL HDL CHOLESTEROL (test code = 2220) 74 MG/DL CALC LDL CHOL (test code = 2237) 99 MG/DL RISK RATIO LDL/HDL (test cod e = 2238) 1.34 RATIO Henry ContrerasCOMPREHENSIVE METABOLIC [id number] 00:00:00* Test Item Value Reference Range Interpretation Comme nts GLUCOSE (test code = 2217) 92 MG/DL BUN (test code = 2208) 15 MG/DL CREATININE (test code = 2214) 0.65 MG/DL eGFR (2020 CKD-EPI) (test code = 56789) 108 ML/MIN/1.73 CALC BUN/CREAT (test code = [...] ContrerasIRON BINDING CAPACITY AND IRON AND % [id number] 00:00:00* Test Item Value Reference Range Interpretation Comme nts IRON, SERUM (test code = 2222) 51 UG/DL UNSATURATED IBC (test code = 25365) 356 UG/DL CALC TOTAL IBC (test code = 2076) 407 UG/DL CALC % IRON SAT (test code = 2078) 13 % Henry [id number] 00:00:00* Test Item Value Reference Range Interpretation Comme nts FERRITIN (test code = 2075) 20 NG/ML Henry Cont[id number] 00:00:00* Test Item Value Reference Range Interpretation Comme nts TRANSFERRIN (test code = 4936) 315 MG/DL Henry ContrerasLIPID [id number] 00:00:00* Test Item Value Reference Range Interpretation Comme nts CHOLESTEROL (test code = 2210) 191 MG/DL TRIGLYCERIDES (test code = 2232) 89 MG/DL HDL CHOLESTEROL (test code = 2220) 74 MG/DL CALC LDL CHOL (test code = 2237) 99 MG/DL RISK RATIO LDL/HDL (test cod e = 2238) 1.34 RATIO Henry ContrerasCOMPREHENSIVE METABOLIC [id number] 00:00:00* Test Item Value Reference Range Interpretation Comme nts GLUCOSE (test code = 2217) 92 MG/DL BUN (test code = 2208) 15 MG/DL CREATININE (test code = 2214) 0.65 MG/DL eGFR (2020 CKD-EPI) (test code = 72270) 108 ML/MIN/1.73 CALC BUN/CREAT (test code = [...] ContrerasIRON BINDING CAPACITY AND IRON AND % [id number] 00:00:00* Test Item Value Reference Range Interpretation Comme nts IRON, SERUM (test code = 2222) 51 UG/DL UNSATURATED IBC (test code = 74453) 356 UG/DL CALC TOTAL IBC (test code = 2077) 407 UG/DL CALC % IRON SAT (test code = 2079) 13 % Henry [id number] 00:00:00* Test Item Value Reference Range Interpretation Comme nts FERRITIN (test code = 2075) 20 NG/ML Henry Co[id number] 00:00:00* Test Item Value Reference Range Interpretation Comme nts TRANSFERRIN (test code = 4936) 315 MG/DL Henry ContrerasHEMOGLOBIN [id number] 03:08:40* Test Item Value Reference Range Interpretation Comme shaina HEMOGLOBIN A1c (test code = 82972) 5.5 % 4.2-5.6 CBC W/AUTO DIFF WITH [id number] 02:29:36* Test Item Value Reference Range Interpretation [...] 0.00-0.10 ABS NUCLEATED RBCS (test code = 18729) 0.00 K/UL 0.00-0.11 CBC W/AUTO [id number] 00:00:00* Test Item Value Reference Range Interpretation [...] ABS NUCLEATED RBCS (test cod e = 62506) 0.00 K/UL Henry Quiles [place]IN [id number] 00:00:00* Test Item Value Reference Range Interpretation Comme nts HEMOGLOBIN A1c (test code = 12438) 5.5 % Henry Quiles [place]CBC W/AUTO [id number] 00:00:00* Test Item Value Reference Range Interpretation [...] ABS NUCLEATED RBCS (test cod e = 12724) 0.00 K/UL Henry Quiles [place]MO[place]IN [id number] 00:00:00* Test Item Value Reference Range Interpretation Comme nts HEMOGLOBIN A1c (test code = 08739) 5.5 % Henry F AustinCBC W/AUTO [id number] 00:00:00* Test Item Value Reference Range Interpretation [...] ABS NUCLEATED RBCS (test cod e = 94389) 0.00 K/UL Henry ContrerasHEMOGLOBIN [id number] 00:00:00* Test Item Value Reference Range Interpretation Comme nts HEMOGLOBIN A1c (test code = 10447) 5.5 % Henry ContrerasDRUGS OF [id number] 05:03:00* Test Item Value Reference Range Interpretation [...] 200 ng/mL Opiates 300 ng/mL URINALYSIS WITH [id number] 04:56:00* Test Item Value Reference Range Interpretation [...] (test code = USPERM) /HPF NONE URINE [id number] 04:53:00* Test Item Value Reference Range Interpretation [...] the FDA and the [employer] ([employer]) are more stringent than those required for this test. Therefore, the result should be interpreted with caution and close attention to other clinical and epidemiological data [id number] 16:00:00* Test Item Value Reference Range Interpretation Comme nts SALICYLATE (test code = 94B) <3.0 mg/dL 15.0-30.0 L LIVER [id number] 15:49:00* Test Item Value Reference Range Interpretation [...] code = 31A) <7 IU/L 10-49 L [id number] 15:48:00* Test Item Value Reference Range Interpretation Comme nts ACETAMINPH (test code = 94M) <0.2 mg/dL 1.2-2.5 L ALCOHOL BLOOD (ETOH)2022-11-04 15:48:00* Test Item Value Reference Range Interpretation Comme nts ETOH (test code = HALC) ETHANOL The result is to be used only for medical purposes ALCOHOL (test code = 56A) <10 mg/dL See_Comment [Automated [employer]] The system which generated this result transmitted reference range: <=10. The reference range was not used to interpret this result as normal/abnormal. 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 Old healed fractures of the distal tibia and fibular noted.Soft tissues: Unremarkable.IMPRESSION: No acute findings.Electronically signed by: Nikko Santiago MD 11/04/2022 3:10 PM CDT [id number] BEDSIDE [id number] 11:51:00* Test Item Value Reference Range Interpretation Comme nts GLUCOSE BEDSIDE TESTING (karen t code = GLUBED) 79 MG/DL 70-119 N GLUCOSE BEDSIDE [id number] 06:23:00* Test Item Value Reference Range Interpretation Comme nts GLUCOSE BEDSIDE TESTING (karen t code = GLUBED) 80 MG/DL 70-119 N BASIC METABOLIC [id number] 05:12:00* Test Item Value Reference Range Interpretation [...] Test Item Value Reference Range Interpretation Comme [facility] CARBAMAZEPINE (TEGRETOL) (test code = CARB) 4.6 ug/mL 4.0-12.0 In conjunction w ith other antiepileptic drugs Therapeutic 4.0 - 8.0 Toxicity 9.0 - 12.0 Carbamazepine alone Therapeutic 8.0 - 12.0 Detection Limit = 2.0 <2.0 indicates None DetectedPerformed At: HD [facility] [address] [id number] Kyle L MD Ph:[phone] GLUCOSE BEDSIDE [id number] 19:51:00* Test Item Value Reference Range Interpretation Comme [facility] GLUCOSE BEDSIDE TESTING (karen t code = GLUBED) 129 MG/DL 70-119 H OSMOLALITY [id number] 17:56:00* Test Item Value Reference Range Interpretation Comme [facility] OSMOLALITY SERUM (test code = OSMO) 269 mOsm/kg 275-300 L THYROID STIMULATING [id number] 17:56:00* Test Item Value Reference Range Interpretation Comme nts THYROID STIMULATING HORMONE (test code = TSH) 4.190 mc IU/ML 0.340-4.820 N GLUCOSE BEDSIDE [id number] 15:49:00* Test Item Value Reference Range Interpretation [...] code = VALP) 37.5 mcG/ML 50.0-100.0 L [id number] 14:26:00* Test Item Value Reference Range Interpretation Comme nts AMMONIA (test code = AMM) 29.0 mcMOL/L 11.0-32.0 N GLUCOSE BEDSIDE [id number] 11:51:00* Test Item Value Reference Range Interpretation Comme nts GLUCOSE BEDSIDE TESTING (karen t code = GLUBED) 88 MG/DL 70-119 N GLYCOSYLATED HEMOGLOBIN (HA1C)2022-09-18 06:53:00* Test Item Value Reference Range Interpretation Comme [facility] GLYCOSYLATED HEMOGLOBIN (HA1 C) (test code = GLYHGB) 5.2 % IS-A1C 4.5-5.6 N ESTIMATED AVERAGE [id number] 06:53:00* Test Item Value Reference Range Interpretation [...] to interpret this result as normal/abnormal. UR [id number] 21:28:00* Test Item Value Reference Range Interpretation Comme nts UR SODIUM RANDOM (test code = JESUSITA) 93 mmol/L 40-200 N UR POTASSIUM RANDOM (test code = KU) 54.8 mmol/L 25-125 N NO ESTABLISHED NORMAL RANGES FOR RANDOM SPECIMENS. UR CHLORIDE RANDOM (test code = CLU) 164 mmol/L 110-150 H UR OSMOLALITY [id number] 21:28:00* Test Item Value Reference Range Interpretation Comme nts UR OSMOLALITY RANDOM (test c ode = OSMOU) 475 mOsm/kg 100-1400 N CBC W/O [id number] 20:05:00* Test Item Value Reference Range Interpretation [...] = MPV) 9.5 fL 6.8-11.2 N LACTIC [id number] 19:35:00* Test Item Value Reference Range Interpretation Comme nts LACTIC ACID (test code = LACT) 1.0 mmol/L 0.4-2.0 N HCG SERUM [id number] 19:31:00* Test Item Value Reference Range Interpretation Comme nts HCG SERUM QUAL (test code = HCGQL) Negative SCREEN NEG - CT HEAD/BRAIN W/O [id number] 18:59:00 [facility] : 1975 Sex: F Patient Name: BHUMIKA JONES Unit No: [id number] EXAMS: CPT CODE: [id number] CT HEAD/BRAIN W/O CONT 36293 Location: H3 CT head, conducted on 09/17/22 at 1837 hours COMPARISON EXAMS:Head CT exam of 09/17/22 at 00:06 hours TECHNIQUE: CT examination of the brain was performed without contrast on [facility] scanner. Scanning conducted from skull base [...] Marie(Abner)(CT) CTDI: DLP: Trnscrpt: 09/17/2022 (1858) NadiyaDAS6 [facility] NAME: BHUMIKA JONES [address] [place] [address] Blvd PHYS: Valentina Mattson [place], [place] [address] : 1975 AGE: 47 SEX: F LOC: JOSHUA 20 PHONE #: [phone] EXAM DATE: 09/17/2022 STATUS: ADM IN FAX #: [phone] RAD #: D/C DT PAGE 1 Signed Report Patient Name: BHUMIKA JONES Unit No: [id number] EXAMS: CPT CODE: [id number] CT HEAD/BRAIN W/O CONT 01747 (Continued) Orig Print D/T: S: 09/17/2022 (1902) DENIZ Lugo NAME: SILAS JONESPCION [address] [place] [address] Blvd PHYS: Valentina Mattson MD, [place] [address] : 1975 AGE: 47 SEX: F LOC: JOSHUA 20 PHONE #: [phone] EXAM DATE: 09/17/2022 STATUS: ADM IN FAX #: [phone] #: D/C DT PAGE 2 Signed ReportURINALYSIS [id number] 16:28:00* Test Item Value Reference Range Interpretation [...] >0 /UL NONE-SQepi DRUGS OF ABUSE SCREEN [id number] 16:28:00* Test Item Value Reference Range Interpretation [...] interpret this result as normal/abnormal. TROP-I HIGH [id number] 16:26:00* Test Item Value Reference Range Interpretation [...] and URLs may vary bymethod. BASIC METABOLIC [id number] 16:25:00* Test Item Value Reference Range Interpretation [...] interpret this result as normal/abnormal. HEPATIC FUNCTION [id number] 16:25:00* Test Item Value Reference Range Interpretation [...] ode = CK) 92 Unit/L 26-192 N [id number] 16:25:00* Test Item Value Reference Range Interpretation Comme nts LIPASE (test code = LIP) 57 Unit/L 114-286 L - CT HEAD/BRAIN W/O [id number] 00:32:00 [facility] : 1975 Sex: F Patient Name: BHUMIKA JONES Unit No: [id number] EXAMS: CPT CODE: [id number] CT HEAD/BRAIN W/O CONT 64926 EXAM: - CT HEAD/BRAIN W/O CONT LOCATION: [...] August CTDI: DLP: Trnscrpt: 09/17/2022 (003) NadiyaMKW1 [facility] NAME: SILAS JONESPCION [address] [place], [place] [address]vd PHYS: IGNACIO.02 - Asim [place], [place] [address] : 1975 AGE: 47 SEX: F LOC: B.ERSPHONE #: [phone] EXAM DATE: 09/16/2022 STATUS: REG ER FAX #: [phone] RAD #: D/C DT PAGE 1 Signed Report Patient Name: BHUMIKA JONES Unit No: [id number] EXAMS: CPT CODE: [id number] CTHEAD/BRAIN W/O CONT 66511 (Continued) Orig Print D/T: S: 09/17/2022 (0035) DENIZ Lugo NAME: BHUMIKA JONES [address] [place] [address] PHYS: IGNACIO.Deirdre - Aism Jack MD, [place] [address] : 1975 AGE: 47 SEX: F LOC: MARCOS PHONE #: [phone] EXAM DATE: 09/16/2022 STATUS: REG ER FAX #: [phone] RAD #: D/C DT PAGE 2 Signed Report TROP-I HIGH [id number] 00:13:00* Test Item Value Reference Range Interpretation [...] and URLs may vary bymethod. COMPREHENSIVE METABOLIC [id number] 00:11:00* Test Item Value Reference Range Interpretation [...] interpret this result as normal/abnormal. CBC W/AUTO [id number] 23:59:00* Test Item Value Reference Range Interpretation [...] K/mm3 0.0-0.05 N - XR CHEST 1 [id number] 23:34:00 [facility] BHUM[facility]A JONES : 1975 Sex: F [place]: E St: PRE -- Patient Name: BHUMIKA JONES Unit No: [id number] EXAMS: CPT CODE: [id number] XR CHEST 1 V 37838 EXAMINATION: - XR CHEST 1 V CLINICAL [...] Flo Jansen MD CC: Dictated Date/Time: 09/16/2022 (4484)Technologist: Muna Monet Transcribed Date/Time: 09/16/2022 (1036) By: NadiyaJH12 Orig Print D/T: S: 09/16/2022 (8302) DENIZ Lugo NAME: BHUMIKA JONES [address] [place] [address] PHYS: IGNACIO.02 - Asim Jack MD, [place] [address] : 1975 AGE: 47 SEX: F LOC: B.ERS PHONE #: [phone] EXAMDATE: 09/16/2022 STATUS: PRE ER FAX #: [phone] RAD NO: DC Dt: PAGE 1 Signed ReportCARBAMAZEPINE (TEGRETOL) 2022-09-15 06:12:00* Test Item Value Reference Range Interpretation Comme nts CARBAMAZEPINE (TEGRETOL) (test code = CARB) 1.5 ug/mL 4.0-12.0 L In conjunction w ith other antiepileptic drugs Therapeutic 4.0 - 8.0 Toxicity 9.0 - 12.0 Carbamazepine alone Therapeutic 8.0 - 12.0 Detection Limit = 2.0 <2.0 indicates None DetectedPerformed At: [facility] [address] [place], [place] [id number] Michael Reeves MD Ph:[phone] VALPROIC ACID (DEPAKENE)2022-09-15 06:12:00* Test Item Value Reference Range Interpretation Comme nts VALPROIC ACID (DEPAKENE) (te st code = VALP) 80.6 mcG/ML 50.0-100.0 N COMPREHENSIVE METABOLIC [id number] 06:00:00* Test Item Value Reference Range Interpretation [...] interpret this result as normal/abnormal. CBC W/AUTO [id number] 05:37:00* Test Item Value Reference Range Interpretation [...] NRBC#) 0.00 K/mm3 0.0-0.05 N GLUCOSE BEDSIDE [id number] 20:03:00* Test Item Value Reference Range Interpretation Comme nts GLUCOSE BEDSIDE TESTING (karen t code = GLUBED) 117 MG/DL 70-119 N DRUGS OF ABUSE SCREEN [id number] 11:42:00* Test Item Value Reference Range Interpretation [...] result as normal/abnormal. - CT HEAD/BRAIN W/O [id number] 11:37:00 [facility] BHUM[facility]A JON[facility] : 1975 Sex: F Patient Name: BHUMIKA JONES Unit No: [id number] EXAMS: CPT CODE: [id number] CT HEAD/BRAIN W/O CONT 46228 EXAMINATION: - CT HEAD/BRAIN W/O CONT COMPARISON: None HISTORY: Seizure LOCATION CODE: [id number]: CT of the Brain without contrast. Axial [...] MD; Jim Jaimes MD Dictated Date/Time: 09/14/2022 (3728) Technologist: ASUNCION CASTELLANO CTDI: DLP: Trnscrpt: 09/14/2022 (8062) t.[email or web address] [facility] NAME: BHUMIKA JONES [facility] PHYS: Vladimir Menchaca MD [address] [place], [place] [address]VD : 1975 AGE: 47 SEX: RAFI BUTT [facility] LOC: NEHA 10 PHONE #: [phone] EXAM DATE: 09/14/2022 STATUS: ADM IN FAX #: [phone] RAD #: D/C DT PAGE 1 Signed Report Patient Name: BHUMIKA JONES Unit No: [id number] EXAMS: CPT CODE: [id number] CT HEAD/BRAIN W/O CONT 00746 (Continued) Orig Print D/T: S: 09/14/2022 (1140) DENIZ Lugo NAME: BHUMIKA JONES [facility] PHYS: JESUSGricel Pamela Vladimir Forbes MD [address] [place] [address] : 1975 AGE: 47 SEX: RAFI BUTT [facility] LOC: GingerBINDU Cintron PHONE #: [phone] EXAM DATE: 09/14/2022 STATUS: ADM IN FAX #: [phone] RAD #: D/C DT PAGE 2 Signed [...] AVOIDED DUE TO POSSIBLE HEPARINCONTAMINATION HCG SERUM [id number] 06:51:00* Test Item Value Reference Range Interpretation [...] CK) 268 Unit/L 26-192 H CBC W/AUTO [id number] 03:43:00* Test Item Value Reference Range Interpretation [...] = NRBC#) 0.00 K/mm3 0.0-0.05 N URINALYSIS [id number] 03:41:00* Test Item Value Reference Range Interpretation [...] RARE /LPF NONE - XR CHEST 2 [id number] 02:06:00 [facility] BHUMIKA JONES : 1975 Sex: F FAX: Suleman Carvalho [facility] [phone] [place]: E St: REG Patient Name: BHUMIKA JONES Unit No: [id number] EXAMS: CPT CODE: [id number] XR CHEST 2 V 90232 EXAM: - XR CHEST 2 V HISTORY: [...] D/T: S: 09/14/2022 (208) DENIZ Lugo NAME: [address] PHYS: LUDWIGAD - Deven,[place], [place] [address] : 1975 AGE: 47SEX: F LOC: B.ERS PHONE #: [phone] EXAM DATE: 09/14/2022 STATUS: REG ER FAX #: [phone] RAD NO: DC Dt: PAGE 1 Signed ReportCOMPREHENSIVE METABOLIC [id number] 12:49:00* Test Item Value Reference Range Interpretation [...] used to interpret this result as normal/abnormal. [id number] 12:49:00* Test Item Value Reference Range Interpretation Comme nts MAGNESIUM (test code = MAG) 1.7 MG/DL 1.6-2.6 N CBC W/AUTO [id number] 12:36:00* Test Item Value Reference Range Interpretation [...] 0.0-0.05 N PENDING RECEIPT OF SPECIMEN PER SARA AT 09/13/22 1143URINALYSIS COMPLETE 2022-09-13 12:22:00* Test [...] RARE /LPF NONE DRUGS OF ABUSE SCREEN [id number] 00:33:00* Test Item Value Reference Range Interpretation [...] 300 ng/mL UA RFLX MICR CULT IF [id number] 00:30:00* Test Item Value Reference Range Interpretation [...] culture: Suprapubic PainSpecimen Description: CLEAN CATCHBASIC METABOLIC [id number] 00:18:00* Test Item Value Reference Range Interpretation [...] 8.9 mg/dl 8.0-10.5 N HEPATIC FUNCTION PANEL [id number] 00:18:00* Test Item Value Reference Range Interpretation [...] ALKP) 113 Units/L 50.0-136.0 N HCG SERUM [id number] 00:18:00* Test Item Value Reference Range Interpretation Comme nts HCG SERUM QUAL (test code = HCGQL) NEGATIVE NEGATIVE [id number] 00:18:00* Test Item Value Reference Range Interpretation Comme nts ALCOHOL (test code = ALC) 0.00 gm/dL 0.00-0.00 N ETHYL ALCOHOL MIRELLA HARRELL - INTERPRETATION: 0.050 GM/DL - NOT INTOXICATED 0.100 GM/DL - INTOXICATED 0.350-0.450 GM/DL - SEVERELY INTOXICATED 0.550 GM/DL- FATAL INTOXICATION Coronavirus 2019 nCoV [id number] 00:09:00* Test Item Value Reference Range Interpretation Comme nts Coronavirus 2019 nCoV Bedside (test code = QEDAH23OHCKJ) Negative NEGATIVE Negative results should be treated as presumptive and ifinconsistent with clinical signs and symptoms, or necessaryfor patient management, should be tested with an alternativemolecular assay. Negative results do not preclude PTJN-HmK-0rapccwhhg and should not be used as the sole basis forpatient management decisions. Negative results should beconsidered in the context of a patient's recent exposures,history, presence of clinical signs and symptoms consistentwith COVID-19. CBC W/AUTO [id number] 23:58:00* Test Item Value Reference Range Interpretation [...] X10 3uL 0.00-0.01 N COMP. METABOLIC PANEL (12012)2022-09-07 02:12:41* Test Item Value Reference Range Interpretation Comme nts NA (test code = 1692233725) 133 mmol/L 135-145 L K (test code = 7247464688) 4.4 mmol/L 3.5-5.0 CL (test code = 8908767326) 102 mmol/L 98-108 CO2 TOTAL (test code = 4847279162) 25 mmol/L 23-31 AGAP (test code = 4701309649) 6 2-16 BUN (test code = 9275183747) 22 mg/dL 7-23 GLUCOSE (test code = 2779593374) 97 mg/dL 70-110 CREATININE (test code = 9586244837) 0.40 mg/dL 0.50-1.04 L TOTAL BILI (test code = 2386660121) 0.3 mg/dL 0.1-1.1 CALCIUM (test code = 8069264225) 8.9 mg/dL 8.6-10.6 T PROTEIN (test code = 4480537229) 7.7 g/dL 6.3-8.2 ALBUMIN (test code = 2371611737) 4.0 g/dL 3.5-5.0 ALK PHOS (test code = 5692709316) 104 U/L 34-122 ALTv (test code = 1742-6) 15 U/L 5-35 AST(SGOT) (test code = 1104900765) 22 U/L 13-40 eGFR (test code = 7166375140) 170.4 mL/min/1.73m2 HANNAH (test code = HANNAH) [...] imaging tests). Lab Interpretation (test code = 08976-1) Abnormal General acute hospital WITH [id number] 02:01:20* Test Item Value Reference Range Interpretation Comme nts WBC (test code = 6690-2) 6.17 See_Comment [[employer]ated [employer]] The system which generated this result transmitted reference range: 4.30 - 11.10 10*3/?L. The reference range was not used to interpret this result as normal/abnormal. RBC (test code = 789-8) 3.73 See_Comment L [[employer]] The system which generated this result transmitted [...] 32.9 g/dL 31.6-35.1 RDW-SD (test code = 25341-5) 48.1 fL 39.0-49.9 RDW-CV (test code = 788-0) 14.7 % 12.0-15.5 PLT (test code = 777-3) 272 See_Comment [Automated messa ge] The system which generated this result transmitted reference range: 166 - 358 10*3/?L. The reference range was not used to interpret this result as normal/abnormal. MPV (test code = 44031-9) 9.6 fL 9.5-12.9 NRBC/100 WBC (test code = 0144438440) 0.0 See_Comment [Automated [employer] ssage] The system which generated this result transmitted reference range: 0.0 - 10.0 /100 WBCs. The reference range was not used to interpret this result as normal/abnormal. NRBC x10^3 (test code = 0061104860) See_Comment [Automated messa ge] The system which generated this result transmitted reference range: 10*3/?L. The reference range was not used to interpret this result as normal/abnormal. GRAN MAT (NEUT) % (test code = 770-8) 42.2 % IMM GRAN % (test code = 2425106984) 0.20 % LYMPH % (test code = 736-9) 38.2 % MONO % (test code = 5905-5) 12.6 % EOS % (test code = 713-8) 5.8 % BASO % (test code = 706-2) 1.0 % GRAN MAT x10^3(ANC) (test code = 7881685697) 2.60 10*3/uL 1.88-7.09 IMM GRAN x10^3 (test code = 2382219676) 0.00-0.06 LYMPH x10^3 (test code = 731-0) 2.36 10*3/uL 1.32-3.29 MONO x10^3 (test code = 742-7) 0.78 10*3/uL 0.33-0.92 EOS x10^3 (test code = 711-2) 0.36 10*3/uL 0.03-0.39 BASO x10^3 (test code = 704-7) 0.06 10*3/uL 0.01-0.07 Lab Interpretation (test code = 18154-2) Abnormal [facility] ([facility]OVID-19) by RT-PCR (HIGH RISK) 2020-08-19 00:00:00* Test Item Value Reference Range Interpretation Comme nts SARS-CoV-2 INTERPRETATION (t est code = 01220) NEGATIVE SOURCE (test code = 17106) NOT SPECIFIED Henry Quiles VqivvwTIBT-JyV-5 (COVID-19) by RT-PCR (HIGH RISK)2020-08-19 00:00:00* Test Item Value Reference Range Interpretation Comme nts SARS-CoV-2 INTERPRETATION (t est code = 83258) NEGATIVE SOURCE (test code = 06596) NOT SPECIFIED Henry Quiles SwgvxgQPAH-OsX-2 (COVID-19) by RT-PCR (HIGH RISK)2020-08-19 00:00:00* Test Item Value Reference Range Interpretation Comme nts SARS-CoV-2 INTERPRETATION (t est code = 36291) NEGATIVE SOURCE (test code = 51012) NOT SPECIFIED Henry Quiles AustinHPV HIGH RISK WITH GENOTYPE, [id number] 00:00:00* Test Item Value Reference Range Interpretation Comme nts HPV HIGH RISK INTERP (test c ode = 12271) NEGATIVE HPV 16 (test code = 31794) NEGATIVE HPV 18 (test code = 00600) NEGATIVE HPV, HR, OTHER GENOTYPES (te st code = 09030) NEGATIVE Henry ContrerasPAP TEST, THINPREP, [id number] 00:00:00* Test Item Value Reference Range Interpretation Comme nts SOURCE: (test code = 8001) Cervical/Endocervical SLIDES: (test code = 8011) 1 LMP: (test code = 8021) 06/2017 SPECIMEN ADEQUACY: (test code = 42987) (NOTE) INTERPRETATION: (test code = 14844) NILM/NO EPITH. ABNORMALITY;SEE BELOW RECYCLING ASSISTANT: (test code = 8101) KANA Hamlin(ASCP) IAC LOCATION: (test code = 57242) (NOTE) CPT: (test code = 8140) (NOTE) Henry Quiles AustinHPV HIGH RISK WITH GENOTYPE, [id number] 00:00:00* Test Item Value Reference Range Interpretation Comme nts HPV HIGH RISK INTERP (test c ode = 44073) NEGATIVE HPV 16 (test code = 19065) NEGATIVE HPV 18 (test code = 57722) NEGATIVE HPV, HR, OTHER GENOTYPES (te st code = 15649) NEGATIVE Henry Quiles AustinPAP TEST, THINPREP, [id number] 00:00:00* Test Item Value Reference Range Interpretation Comme nts SOURCE: (test code = 8001) Cervical/Endocervical SLIDES: (test code = 8011) 1 LMP: (test code = 8021) 06/2017 SPECIMEN ADEQUACY: (test code = 55865) (NOTE) INTERPRETATION: (test code = 08389) NILM/NO EPITH. ABNORMALITY;SEE BELOW RECYCLING ASSISTANT: (test code = 8101) [place], CT(ASCP) IAC LOCATION: (test code = 49598) (NOTE) CPT: (test code = 8140) (NOTE) Henry ContrerasHPV HIGH RISK WITH GENOTYPE, [id number] 00:00:00* Test Item Value Reference Range Interpretation Comme nts HPV HIGH RISK INTERP (test c ode = 78516) NEGATIVE HPV 16 (test code = 88671) NEGATIVE HPV 18 (test code = 00658) NEGATIVE HPV, HR, OTHER GENOTYPES (te st code = 73942) NEGATIVE Henry ContrerasPAP TEST, THINPREP, [id number] 00:00:00* Test Item Value Reference Range Interpretation Comme nts SOURCE: (test code = 8001) Cervical/Endocervical SLIDES: (test code = 8011) 1 LMP: (test code = 8021) 06/2017 SPECIMEN ADEQUACY: (test code = 77179) (NOTE) INTERPRETATION: (test code = 47293) NILM/NO EPITH. ABNORMALITY;SEE BELOW RECYCLING ASSISTANT: (test code = 8101) [place], CT(ASCP) IAC LOCATION: (test code = 91198) (NOTE) CPT: (test code = 8140) (NOTE) Henry F AustinCT HEAD WO [id number] 22:34:12Impression: 1. ?No acute intracranial process. 2. [...] he patient. Please correlate with history and physicalexamination.[facility] CERVICAL SPINE 2 [id number] 22:29:40No acute osseous abnormality. Preliminary Report Dictated [...] reviewed this study and agree with theabove report.General acute hospital WITH [id number] 21:46:00* Test Item Value Reference Range Interpretation [...] 32.2 g/dL 31.6-35.1 RDW-SD (test code = 52830-9) 45.1 fL 39-49.9 RDW-CV (test code = 788-0) 14.6 % 12-15.5 PLT (test code = 777-3) See_Comment L [Automated messa ge] The system which generated this result transmitted reference range: 166 - 358 10*3/?L. The reference range was not used to interpret this result as normal/abnormal. MPV (test code = 14742-3) 9.0 fL 9.5-12.9 L NRBC/100 WBC (test code = 4373589895) See_Comment [Automated me ssage] The system which generated this result transmitted reference range: 0.0 - 10.0 /100 WBCs. The reference range was not used to interpret this result as normal/abnormal. NRBC x10^3 (test code = 4757452513) <0.01 See_Comment [Automated messa ge] The system which generated this result transmitted reference range: 10*3/?L. The reference range was not used to interpret this result as normal/abnormal. GRAN MAT (NEUT) % (test code = 770-8) 51.3 % IMM GRAN % (test code = 7060339717) 0.40 % LYMPH % (test code = 736-9) 24.4 % MONO % (test code = 5905-5) 23.1 % EOS % (test code = 713-8) 0.4 % BASO % (test code = 706-2) 0.4 % GRAN MAT x10^3(ANC) (test code = 6492715120) 2.48 10*3/uL 1.88-7.09 IMM GRAN x10^3 (test code = 8861154651) <0.03 0-0.06 LYMPH x10^3 (test code = 731-0) 1.18 10*3/uL 1.32-3.29 L MONO x10^3 (test code = 742-7) 1.12 10*3/uL 0.33-0.92 H EOS x10^3 (test code = 711-2) <0.03 0.03-0.39 L BASO x10^3 (test code = 704-7) <0.03 0.01-0.07 Lab Interpretation (test code = 59456-1) [facility]normal [facility] 2 [id number] 03:28:03No acute osseous abnormality. Preliminary Report Dictated [...] above report. [facility] [id number] 08:03:22* Test Item Value Reference Range Interpretation Comme nts Valproic Acid Level (test co de = Valproic Acid Level) 57.6 ug/mL(g) 50.0-100.0 Hemoglobin [id number] 09:36:00* Test Item Value Reference Range Interpretation Comme nts Hemoglobin A1c (test code = Hemoglobin A1c) 5.0 % 4.8-5.9 Non Diabetic 4.8-5.9%Diabetic <7.0% CT Shoulder w/o Contrast [id number] 16:49:13Patient: BHUMIKA JONES Date/Time01/09/2019 16:14 CDTReason for [...] lower lobe.LOCATION: R16 Final Dictated by: MD rFank Adam FDictated DT/TM: 01/09/2019 4:43 pmSigned by: MD Frank Adam FSigned (Electronic Signature): 01/09/2019 4:49 pmRPR [id number] 21:33:20* Test Item Value Reference Range Interpretation [...] 04-23-2020 N XR Shoulder Complete 2+ Views [id number] 15:41:25Patient: BHUMIKA JONES Date/Time01/07/2019 15:25 CDTReason for [...] CSigned (Electronic Signature): 01/07/2019 3:41 pmThyroid Stimulating Xqbzehj1704-74-86 03:07:04* Test Item Value Reference Range Interpretation Comme nts TSH (test code = TSH) 9.650 mIU/mL 0.270-4.200 H Lipid [id number] 03:07:03* Test Item Value Reference Range Interpretation Comme nts Cholesterol Total (test code = Cholesterol Total) 199 mg/dL 0-200 RISK OF HEART DISEASEPublished by [employer] Association Analyte Optimal Borderline [...] is LDL/HDL Ratio=LDL Calc/HDL Chol HCG Qualitative [id number] 02:33:13* Test Item Value Reference Range Interpretation Comme nts HCG, Serum Qual (test code = HCG, Serum Qual) Negative Lot # (test code = Lot #) [id number] N Expiration Dt (test code = Expiration Dt) 2020-04-23 N Neg Control (test code = Neg Control) Negative Pos Control (test code = Pos Control) Positive Internal QC (test code = Int ernal QC) Acceptable Drugs of Abuse Urine [id number] 18:58:11* Test Item Value Reference Range Interpretation [...] = Cannabinoid Screen Ur) Negative Negative Alcohol [id number] 18:47:34* Test Item Value Reference Range Interpretation Comme nts Ethanol Level (test code = Ethanol Level) <0.00 g/dL 0.00-0.01 Intoxicated 0.08 0 g/dL or more Ethanol Inst (test code = Ethanol Inst) <0 N Comprehensive Metabolic [id number] 18:47:33* Test Item Value Reference Range Interpretation [...] A/G Ratio) 1.0 ratio N Comprehensive Metabolic [id number] 18:47:33* Test Item Value Reference Range Interpretation [...] the National Kidney Foundation, http://nkdep.nih.gov Comprehensive Metabolic [id number] 18:47:33* Test Item Value Reference Range Interpretation [...] Kidney Foundation, http://nkdep.nih.gov Complete Blood Count with Ubckpmniyhbs9833-89-77 18:15:23* Test Item Value Reference Range Interpretation [...] code = IPF) 0 % N Automated [id number] 18:15:23* Test Item Value Reference Range Interpretation Comme nts Neutro Auto (test code = Sunny tro Auto) 42.1 % 36.0-70.0 Lymph Auto (test code = Lymph Auto) 40.0 % 12.0-44.0 Traverse Auto (test code = Traverse Auto) 12.2 % 0.0-11.0 H Eos, Auto (test code = Eos, Auto) 4.9 % 0.0-7.0 Basophil Auto (test code = B asophil Auto) 0.6 % 0.0-2.0 Neutro Absolute (test code = Neutro Absolute) 2.2 x10 1.6-7.4 Lymph Absolute (test code = Lymph Absolute) 2.06 x10 .50-4.60 Traverse Absolute (test code = M richa Absolute) .63 x10 .00-1.20 Eos Absolute (test code = Eo s Absolute) 0.25 x10 0.00-0.74 Baso Absolute (test code = B aso Absolute) 0.03 x10 0.00-0.21 IG [id number] 18:15:23* Test Item Value Reference Range Interpretation Comme nts IG (test code = IG) 0.2 % 0.0-5.0 IG Abs (test code = IG Abs) 0 x10 N VALPROIC [id number] 00:00:00* Test Item Value Reference Range Interpretation Comme nts VALPROIC ACID (test code = 3025) 69.8 UG/ML Henry Etta AustinVALPROIC [id number] 00:00:00* Test Item Value Reference Range Interpretation Comme nts VALPROIC ACID (test code = 3025) 69.8 UG/ML Henry Quiles AustinVALPROIC [id number] 00:00:00* Test Item Value Reference Range Interpretation Comme nts VALPROIC ACID (test code = 3025) 69.8 UG/ML Henry ContrerasURINE CULTURE, NO [id number] 00:00:00* Test Item Value Reference Range Interpretation Comme nts URINE CULTURE, NO SENS (test code = 37551) SPECIMEN NUMBER: [id number] Henry Quiles AustinURINE CULTURE, NO [id number] 00:00:00* Test Item Value Reference Range Interpretation Comme nts URINE CULTURE, NO SENS (test code = 34660) SPECIMEN NUMBER: [id number] Henry Quiles AustinURINE CULTURE, NO [id number] 00:00:00* Test Item Value Reference Range Interpretation Comme nts URINE CULTURE, NO SENS (test code = 24449) SPECIMEN NUMBER: [id number] Henry F AustinIRON BINDING CAPACITY AND IRON AND % [id number] 00:00:00* Test Item Value Reference Range Interpretation Comme nts IRON, SERUM (test code = 2) 42 UG/DL UNSATURATED IBC (test code = 60362) 279 UG/DL CALC TOTAL IBC (test code = 7) 321 UG/DL CALC % IRON SAT (test code = 9) 13 % Henry F [id number] 00:00:00* Test Item Value Reference Range Interpretation Comme nts FERRITIN (test code = 207) 15 NG/ML Henry F [id number] 00:00:00* Test Item Value Reference Range Interpretation Comme nts TRANSFERRIN (test code = 4936) 269 MG/DL Henry F AustinFOLIC [id number] 00:00:00* Test Item Value Reference Range Interpretation Comme nts FOLIC ACID (test code = 2695) 5.4 UG/L Henry F AustinIRON BINDING CAPACITY AND IRON AND % [id number] 00:00:00* Test Item Value Reference Range Interpretation Comme nts IRON, SERUM (test code = 2) 42 UG/DL UNSATURATED IBC (test code = 38264) 279 UG/DL CALC TOTAL IBC (test code = 7) 321 UG/DL CALC % IRON SAT (test code = 9) 13 % Henry F [id number] 00:00:00* Test Item Value Reference Range Interpretation Comme nts FERRITIN (test code = 5) 15 NG/ML Henry F [id number] 00:00:00* Test Item Value Reference Range Interpretation Comme nts TRANSFERRIN (test code = 4936) 269 MG/DL Henry Quiles AustinFOLIC [id number] 00:00:00* Test Item Value Reference Range Interpretation Comme nts FOLIC ACID (test code = 2695) 5.4 UG/L Henry Quiles AustinIRON BINDING CAPACITY AND IRON AND % [id number] 00:00:00* Test Item Value Reference Range Interpretation Comme nts IRON, SERUM (test code = 2222) 42 UG/DL UNSATURATED IBC (test code = 97400) 279 UG/DL CALC TOTAL IBC (test code = 2077) 321 UG/DL CALC % IRON SAT (test code = 2079) 13 % Henry Quiles [id number] 00:00:00* Test Item Value Reference Range Interpretation Comme nts FERRITIN (test code = 2075) 15 NG/ML Henry Quiles [id number] 00:00:00* Test Item Value Reference Range Interpretation Comme nts TRANSFERRIN (test code = 4936) 269 MG/DL Henry Quiles AustinFOLIC [id number] 00:00:00* Test Item Value Reference Range Interpretation Comme nts FOLIC ACID (test code = 2695) 5.4 UG/L Henry Quiles AustinCULTURE, URINE [ADDED]2018-06-12 00:00:00* Test Item Value Reference Range Interpretation Comme nts CULTURE, URINE (test code = 77655) SPECIMEN NUMBER: [id number] Henry Quiles AustinCULTURE, URINE [ADDED]2018-06-12 00:00:00* Test Item Value Reference Range Interpretation Comme nts CULTURE, URINE (test code = 69158) SPECIMEN NUMBER: [id number] Henry Quiles AustinCULTURE, URINE [ADDED]2018-06-12 00:00:00* Test Item Value Reference Range Interpretation Comme nts CULTURE, URINE (test code = 29972) SPECIMEN NUMBER: [id number] Henry Quiles AustinCBC W/AUTO [id number] 00:00:00* Test Item Value Reference Range Interpretation [...] (test code = 1015) 184 K/UL Henry Etta BenCOMPREHENSIVE METABOLIC [id number] 00:00:00* Test Item Value Reference Range Interpretation Comme nts GLUCOSE (test code = 2217) 86 MG/DL BUN (test code = 2208) 16 MG/DL CREATININE (test code = 2214) 0.45 MG/DL eGFR AMER. (test cod e = 11739) 141 ML/MIN/1.73 eGFR NON- AMER. (test code = 76592) 122 ML/MIN/1.73 CALC BUN/CREAT (test code = [...] code = 2219) 17 U/L Henry ContrerasVALPROIC [id number] 00:00:00* Test Item Value Reference Range Interpretation Comme nts VALPROIC ACID (test code = 3025) 100.9 UG/ML Henry ContrerasCBC W/AUTO [id number] 00:00:00* Test Item Value Reference Range Interpretation [...] = 1015) 184 K/UL Henry ContrerasCOMPREHENSIVE METABOLIC [id number] 00:00:00* Test Item Value Reference Range Interpretation Comme nts GLUCOSE (test code = 2217) 86 MG/DL BUN (test code = 2208) 16 MG/DL CREATININE (test code = 2214) 0.45 MG/DL eGFR AMER. (test cod e = 21157) 141 ML/MIN/1.73 eGFR NON- AMER. (test code = 19821) 122 ML/MIN/1.73 CALC BUN/CREAT (test code = [...] code = 2219) 17 U/L Henry ContrerasVALPROIC [id number] 00:00:00* Test Item Value Reference Range Interpretation Comme nts VALPROIC ACID (test code = 3025) 100.9 UG/ML Henry ContrerasCBC W/AUTO [id number] 00:00:00* Test Item Value Reference Range Interpretation [...] = 1015) 184 K/UL Henry ContrerasCOMPREHENSIVE METABOLIC [id number] 00:00:00* Test Item Value Reference Range Interpretation Comme nts GLUCOSE (test code = 2217) 86 MG/DL BUN (test code = 2208) 16 MG/DL CREATININE (test code = 2214) 0.45 MG/DL eGFR AMER. (test cod e = 90124) 141 ML/MIN/1.73 eGFR NON- AMER. (test code = 86036) 122 ML/MIN/1.73 CALC BUN/CREAT (test code = [...] code = 2219) 17 U/L Henry ContrerasVALPROIC [id number] 00:00:00* Test Item Value Reference Range Interpretation Comme nts VALPROIC ACID (test code = 3025) 100.9 UG/ML Henry ContrerasPAP TEST, THINPREP, [id number] 00:00:00* Test Item Value Reference Range Interpretation Comme nts SOURCE: (test code = 8001) Cervical/Endocervical SLIDES: (test code = 8011) 1 LMP: (test code = 8021) 03/2017 SPECIMEN ADEQUACY: (test code = 45470) (NOTE) INTERPRETATION: (test code = 78484) NO EPITHELIAL ABNORMALITY SEE BELOW RECYCLING ASSISTANT: (test code = 8101) KANA Merida(ASCP)IAC LOCATION: (test code = 43802) (NOTE) CPT: (test code = 8140) (NOTE) Henry ContrerasHPV HIGH RISK WITH GENOTYPE, [id number] 00:00:00* Test Item Value Reference Range Interpretation Comme nts HPV HIGH RISK INTERP (test c ode = 90576) NEGATIVE HPV 16 (test code = 03099) NEGATIVE HPV 18 (test code = 40341) NEGATIVE HPV, HR, OTHER GENOTYPES (te st code = 29172) NEGATIVE Henry ContrerasDAVIDP TEST, THINPREP, [id number] 00:00:00* Test Item Value Reference Range Interpretation Comme nts SOURCE: (test code = 8001) Cervical/Endocervical SLIDES: (test code = 8011) 1 LMP: (test code = 8021) 03/2017 SPECIMEN ADEQUACY: (test code = 48781) (NOTE) INTERPRETATION: (test code = 23277) NO EPITHELIAL ABNORMALITY SEE BELOW RECYCLING ASSISTANT: (test code = 8101) KANA Merida(ASCP)IAC LOCATION: (test code = 77204) (NOTE) CPT: (test code = 8140) (NOTE) Henry Quiles AustinHPV HIGH RISK WITH GENOTYPE, [id number] 00:00:00* Test Item Value Reference Range Interpretation Comme nts HPV HIGH RISK INTERP (test c ode = 37376) NEGATIVE HPV 16 (test code = 56658) NEGATIVE HPV 18 (test code = 10052) NEGATIVE HPV, HR, OTHER GENOTYPES (te st code = 10505) NEGATIVE Henry ContrerasPAP TEST, THINPREP, [id number] 00:00:00* Test Item Value Reference Range Interpretation Comme nts SOURCE: (test code = 8001) Cervical/Endocervical SLIDES: (test code = 8011) 1 LMP: (test code = 8021) 03/2017 SPECIMEN ADEQUACY: (test code = 43420) (NOTE) INTERPRETATION: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 acute cardiopulmonary process. Impression By: NadiyaMKErni - Igor Almonte MD Re-Evaluation MDM Free [...] is the patient's second visit here at [facility] in the past 24 hours. She continues [...] of care. at 0449 at 0540 RPT #:[id number] END OF [id number] 20:34:00 [facility] ([facility]) EMERGENCY PROVIDER REPORT REPORT#:[id number] REPORT STATUS: Signed DATE:09/13/22 TIME: 2033 PATIENT: BHUMIKA JONES UNIT #: [id number] ROOM/BED: B.250-W AGE: 47 SEX: F PCP [...] 3 MG PO DAILY at 1707 RPT #:[id number] END OF [id number] 09:58:00 [facility] ([facility]) EMERGENCY PROVIDER REPORT REPORT#:[id number] REPORT STATUS: Signed DATE:09/13/22 TIME: 957 PATIENT: BHUMIKA JONES UNIT #: [id number] ROOM/BED: AGE: 47 SEX: F PCP PHYS: [...] - 8.0 pH UNITS) 6.0 Ur Specific [place] (1.001 - 1.035 SG) 1.024 Urine Protein [...] % (Auto) (14.1 - 45.4 %) 34.0 Traverse % (Auto) (2.5 - 11.7 %) 10.1 Eos % (Auto) (0.0 - 6.2 %) 2.7 Baso % (Auto) (0.0 - 2.1 %) 0.7 Gran # (2.0 - 13.7 k/mm3) 3.04 Lymph # (Auto) (0.6 - 3.8 K/mm3) 1.98 Traverse # (Auto) (0.11 - 0.59 K/mm3) 0.59 [...] a call to 911. at 1327 RPT #:[id number] END OF REPORTSPARTANBURG HOSPITAL FOR RESTORATIVE CARECR
--- NOTE | 2024-04-11 10:32 | EDPHYS ---
Physician Documentation [facility] Name: Davida Hodges Age: 49 yrs Sex: Female : 1975 Arrival Date: 04/11/2024 Time: 10:12 Bed IW1 Private MD: ED Physician Pascual Lundy HPI: 04/11 10:25 This 49 yrs old Female presents to ER via Unassigned with complaints of No ry complaint. 10:25 The patient presents with bleeding, pain, PT BITE CHEEK. The problem is located in the ry right buccal mucosa. Onset: The symptoms/episode began/occurred just prior to arrival. Duration: The symptoms are intermittent, with no pattern. Modifying factors: The symptoms are alleviated by nothing, the symptoms are aggravated by nothing. Severity of symptoms: At their worst the symptoms were mild, in the emergency department the symptoms are unchanged. The patient has experienced similar episodes in the past, multiple times. - Family history:: not pertinent. ROS: 10:25 Constitutional: Negative for fever, chills, and weight loss, Eyes: Negative for injury, ry pain, redness, and discharge, Neck: Negative for injury, pain, and swelling, Cardiovascular: Negative for chest pain, palpitations, and edema, Respiratory: Negative for shortness of breath, cough, wheezing, and pleuritic chest pain, Abdomen/GI: Negative for abdominal pain, nausea, vomiting, diarrhea, and constipation, Back: Negative for injury and pain, : Negative for injury, bleeding, discharge, and swelling, MS/Extremity: Negative for injury and deformity, Skin: Negative for injury, rash, and discoloration, Neuro: Negative for headache, weakness, numbness, tingling, and seizure, Psych: Negative for depression, anxiety, suicide ideation, homicidal ideation, and hallucinations, Allergy/Immunology: Negative for hives, rash, and allergies, Endocrine: Negative for neck swelling, polydipsia, polyuria, polyphagia, and marked weight changes, Hematologic/Lymphatic: Negative for swollen nodes, abnormal bleeding, and unusual bruising, 10:25 ENT: Positive for CHEEK , MUCOSA BITE, Exam: 10:25 Constitutional: This is a well developed, well nourished patient who is awake, alert, ry and in no acute distress. Head/Face: Normocephalic, atraumatic. Eyes: Pupils equal round and reactive to light, extra-ocular motions intact. Lids and lashes normal. Conjunctiva and sclera are non-icteric and not injected. Cornea within normal limits. Periorbital areas with no swelling, redness, or edema. ENT: Nares patent. No nasal discharge, no septal abnormalities noted. Tympanic membranes are normal and external auditory canals are clear. Oropharynx with no redness, swelling, or masses, exudates, or evidence of obstruction, uvula midline. Mucous membranes moist. Neck: Trachea midline, no thyromegaly or masses palpated, and no cervical lymphadenopathy. Supple, full range of motion without nuchal rigidity, or vertebral point tenderness. No Meningismus. Chest/axilla: Normal chest wall appearance and motion. Nontender with no deformity. No lesions are appreciated. Cardiovascular: Regular rate and rhythm with a normal S1 and S2. No gallops, murmurs, or rubs. Normal PMI, no JVD. No pulse deficits. Respiratory: Lungs have equal breath sounds bilaterally, clear to auscultation and percussion. No rales, rhonchi or wheezes noted. No increased work of breathing, no retractions or nasal flaring. Abdomen/GI: Soft, non-tender, with normal bowel sounds. No distension or tympany. No guarding or rebound. No evidence of tenderness throughout. Back: No spinal tenderness. No costovertebral tenderness. Full range of motion. Skin: Warm, dry with normal turgor. Normal color with no rashes, no lesions, and no evidence of cellulitis. MS/ Extremity: Pulses equal, no cyanosis. Neurovascular intact. Full, normal range of motion. Neuro: Awake and alert, GCS 15, oriented to person, place, time, and situation. Cranial nerves II-XII grossly intact. Motor strength 5/5 in all extremities. Sensory grossly intact. Cerebellar exam normal. Normal gait. Psych: Awake, alert, with orientation to person, place and time. Behavior, mood, and affect are within normal limits. MDM: 10:19 Medical Screening Exam initiated ry Administered Medications: No medications were administered Disposition Summary: 04/11/24 10:31 Discharge Ordered Notes: Location: Home ry Problem: new ry Symptoms: have improved ry Condition: Stable ry Diagnosis - Bipolar disorder, unspecified ry Followup: ry - With: Private Physician - When: 2 - 3 days - Reason: Recheck today's complaints, Continuance of care, Re-evaluation by your physician Discharge Instructions: - Discharge Summary Sheet ry - Managing Bipolar Disorder ry - Supporting Someone With Bipolar Disorder ry Forms: - Medication Reconciliation Form ry - Antibiotic Education ry - Prescription Opioid Use ry - Patient Portal Instructions ry - Leadership Thank You Letter ry Signatures: Pascual Lundy MD MD cha
--- NOTE | 2024-04-11 10:52 | ER ---
Nurse's Notes [facility] Name: Davida Hodges Age: 49 yrs Sex: Female : 1975 Arrival Date: 04/11/2024 Time: 10:12 Bed IW1 Private MD: Diagnosis: Bipolar disorder, unspecified Presentation: 04/11 10:20 Chief complaint: EMS states: pt called EMS and bit the inside of her mouth , pt iw evaluated by Dr. Lundy at nurse's station. Coronavirus screen: At this time, the client does not indicate any symptoms associated with coronavirus-19. Ebola Screen: No symptoms or risks identified at this time. Initial Sepsis Screen: Does the patient have a suspected source of infection? No. Patient's initial sepsis screen is negative. Risk Assessment: Do you want to hurt yourself or someone else? Patient reports no desire to harm self or others. 10:20 Method Of Arrival: EMS: [facility] iw 10:20 Acuity: CARMITA 5 iw 10:20 Initial Sepsis Screen: Does the patient meet any 2 criteria? No. Patient's initial iw sepsis screen is negative. - Family history:: not pertinent. Assessment: 10:20 Reassessment: pt walked out of ER lobby after being registered by EMS. iw ED Course: 10:18 Patient arrived in ED. mr 10:19 Pascual Lundy MD is Attending Physician. [facility] 10:50 Laila Foreman, GERONIMO is Primary Nurse. iw 10:50 Triage completed. iw Administered Medications: No medications were administered Outcome: 10:31 Discharge ordered by . [facility] 10:31 Discharged to home ambulatory, iw 10:50 Condition: unchanged iw 10:50 Discharge instructions given to pt left before d/c instructions 10:51 Patient left the ED. iw Signatures: Pascual Lundy MD MD cha Rivera, Mary, Reg Reg mr Laila Foreman, RN RN iw Corrections: (The following items were deleted from the chart) 14:31 14:25 Reassessment: pt walked out of ER lobby after being registered by EMS iw 14:32 10:20 Chief complaint: EMS states: pt called EMS and bit the inside of her mouth iw
== END 2024-04-11 10:51 | disposition home or self-care (01) ==
LOC: ER 10:12
DX: F31.9 Bipolar disorder, unspecified (principal)
CPT/HCPCS: 99283

== ENCOUNTER 2024-04-27 16:17 | Emergency (ER) | payer SELFPAY ==
--- OUTSIDE RECORDS SUMMARY | 2024-04-27 16:25 | XMS REPORT | Continuity of Care Document ---
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 2023-11-15 16:24:00 2023-11-15 22:54:00 Emergency ER MELVINA SHEPHERD CHRTJP CHRTJP [id number] [facility]ODERICK [facility] 2023-10-28 12:27:38 2023-10-28 12:27:38 Outpatient SFA [facility] [id number] Henry Contreras 2023-10-25 15:44:11 2023-10-25 15:44:11 Outpatient [facility] [id number] Henry Contreras 2023-10-25 00:00:00 2023-10-25 00:00:00 Outpatient Visit [facility] [id number] Henry Contreras 2023-10-04 15:25:52 2023-10-04 15:25:52 Outpatient SFA [facility] [id number] Henry Contreras 2023-10-01 00:00:00 2023-10-01 00:00:00 Telephone Indio Phelan [facility] 1.840.114 350.1.13.10 4.2.7.2.[id number] [facility] 2023-09-16 16:03:08 2023-09-16 16:03:08 Outpatient SFA [facility] [id number] Henry Contreras 2023-08-01 10:00:49 2023-08-01 10:00:49 Outpatient SFA [facility] [id number] Henry Contreras 2023-07-23 14:20:00 2023-07-23 16:57:02 Outpatient INDIO OLIVEROS [facility] [id number] [facility] 2023-07-23 14:20:00 2023-07-23 16:57:02 Office Visit Indio Phelan [facility] 1.840.114 350.1.13.10 4.2.7.2.[id number] [facility] 2023-07-23 00:00:00 2023-07-23 00:00:00 Orders Only Doctor Unassigned, [employer] [facility] 1.840.114 350.1.13.10 4.2.7.2.[id number] [facility] 2023-07-04 16:48:23 2023-07-04 16:48:23 Outpatient [facility] [id number] Henry Contreras 2023-06-18 10:35:36 2023-06-18 10:35:36 Outpatient [facility] [id number] Henry Contreras 2023-06-05 00:00:00 2023-06-05 00:00:00 Orders Only Doctor Unassigned, [employer] [facility] 1.2.840.114 350.1.13.10 4.2.7.2.[id number] [facility] 2023-06-04 16:00:39 2023-06-04 16:00:39 Outpatient [facility] [id number] Henry Quiles [place] 2023-05-24 15:38:52 2023-05-24 15:38:52 Outpatient [facility] [id number] Henry Quiles [place] 2023-05-22 00:00:00 2023-05-22 00:00:00 Letter (Out) Neurology [facility] 1.2.840.114 350.1.13.10 4.2.7.2.[id number] [facility] 2023-05-20 00:00:00 2023-05-20 00:00:00 Orders Only Doctor Unassigned, [employer] [facility] 1.2.840.114 350.1.13.10 4.2.7.2.[id number] [facility] 2023-05-17 15:07:14 2023-05-17 15:07:14 Outpatient [facility] [id number] Henry Quiles Ben 2023-03-02 12:27:43 2023-03-02 12:27:43 Outpatient [facility] [id number] Henry Quiles Ben 2023-01-09 17:11:26 2023-01-09 17:11:26 Outpatient [facility] [id number] Henry Contreras 2022-11-04 14:04:00 2022-11-05 11:09:00 Emergency JESS FALCON [facility] [id number] [facility] 2022-09-24 12:33:00 2022-09-24 12:51:00 Emergency Heri Snow [facility] 1..114 350.1.13.10 4.2.7.2.[id number] [facility] 2022-09-22 00:00:00 2022-09-22 00:00:00 [facility] 1..114 350.1.13.10 4.2.7.2.[id number] [facility] 2022-09-18 10:09:00 2022-09-19 14:28:00 Inpatient EM Marly Mendenhall [facility]SE [id number] [facility] 2022-09-16 22:50:00 2022-09-17 01:40:00 Emergency EM Guero, Asim [facility] FABI [id number] [facility] 2022-09-14 14:52:00 2022-09-15 14:00:00 Inpatient EM Vladimir Forbes [facility] TELE [id number] [facility] 2022-09-13 09:34:00 2022-09-13 13:00:00 Emergency EM Brad Woodall [facility] FABI [id number] 75 [facility] 2022-09-10 23:39:00 2022-09-11 11:28:00 Emergency EM Russel Sewell [facility] [id number] [facility] Martín [facility] 2022-09-10 18:57:00 2022-09-10 20:20:00 Emergency Lisa Morfin [facility] 1.84.114 350.1.13.10 4.2.7.2.[id number] [facility] 2022-09-10 18:57:00 2022-09-10 20:20:00 Emergency X SANDRITA KEY [facility] ERT [id number] [facility] 2022-09-09 20:45:00 2022-09-09 22:46:00 Emergency X SANDRITA KEY [facility] ERT [id number] [facility] 2022-09-09 20:45:00 2022-09-09 22:46:00 Emergency Sandrita Key [facility] 1..840.114 350.1.13.10 4.2.7.2.[id number] [facility] 2022-09-06 18:09:00 2022-09-07 00:51:00 Emergency X TAYO BOYD [facility] ERT [id number] [facility] 2022-09-06 18:09:00 2022-09-07 00:51:00 Emergency Tayo Boyd [facility] 1..840.114 350.1.13.10 4.2.7.2.[id number] [facility] 2022-08-21 14:11:33 2022-08-21 14:11:33 Outpatient [facility] [id number] Henry Contreras 2022-07-17 15:03:48 2022-07-17 15:03:48 Outpatient [facility] [id number] Henry Quiles Ben 2021-10-02 15:56:00 2021-10-02 19:00:00 Emergency X JAVED FRANK [facility] ERT [id number] [facility] 2021-10-02 15:56:00 2021-10-02 19:00:00 Emergency Javed Frank [facility] 1..840.114 350.1.13.10 4.2.7.2.[id number] [facility] 2021-05-05 13:22:00 2021-05-05 14:48:00 Emergency X DEON NUNEZ [facility] ERT [id number] [facility] 2021-05-05 13:22:00 2021-05-05 14:48:00 Emergency Deon Nunez [facility] 1.2.840.114 350.1.13.10 4.2.7.2.[id number] [facility] 2021-05-05 00:00:00 2021-05-05 00:00:00 Orders Only Doctor Unassigned, [employer] [facility] 1.2.840.114 350.1.13.10 4.2.7.2.[id number] [facility] 2019-12-15 17:11:56 2019-12-15 18:04:00 [facility] 1.2.840.114 350.1.13.10 4.2.7.2.686 [id number] 2019-12-15 17:11:56 2019-12-15 18:04:00 Emergency Kp Gilliland [facility] 1.2.840.114 350.1.13.10 4.2.7.2.[id number] [facility] 2019-12-15 17:11:56 2019-12-15 17:11:56 Emergency X Kp GILLILAND [facility] ERT [id number] [facility] 2019-10-25 18:31:31 2019-10-25 19:21:00 Emergency Kristin Miller [facility] 1.2.840.114 350.1.13.10 4.2.7.2.686 [id number] 2019-10-25 18:31:31 2019-10-25 19:21:00 Emergency Kristin Miller [facility] 1.2.840.114 350.1.13.10 4.2.7.2.[id number] [facility] 2019-10-25 18:31:31 2019-10-25 18:31:31 Emergency X KRISTIN MILLER [facility] ERT [id number] [facility] 2019-08-13 13:30:00 2019-08-13 14:36:00 Emergency Floridalma Evans [facility] 1.2.840.114 350.1.13.10 4.2.7.2.686 [id number] 2019-08-13 13:30:00 2019-08-13 14:36:00 Emergency Floridalma Evans [facility] 1.2.840.114 350.1.13.10 4.2.7.2.[id number] [facility] 2019-08-13 13:30:00 2019-08-13 14:36:00 Emergency X FLORIDALMA EVANS [facility] ERT [id number] [facility] 2019-07-22 13:42:11 2019-07-22 19:02:00 Emergency Unknown, Attending Lisa Morfin [facility] 1.2.840.114 350.1.13.10 4.2.7.2.686 [id number] 2019-07-22 13:42:11 2019-07-22 19:02:00 Emergency X LISA MORFIN [facility] ERT [id number] [facility] 2019-07-22 13:42:11 2019-07-22 19:02:00 Emergency Unknown, Attending Lisa Morfin [facility] 1.2.840.114 350.1.13.10 4.2.7.2.[id number] [facility] 2019-07-13 20:17:19 2019-07-13 21:48:00 Emergency X LEXIEHENRY [facility] ERT [id number] [facility] 2019-07-13 20:17:19 2019-07-13 21:48:00 Emergency Lexie, Henry [facility] 1.2.840.114 350.1.13.10 4.2.7.2.[id number] [facility] 2019-07-10 14:26:03 2019-07-10 16:33:00 Emergency X DEBBIE PAYTON [facility] ERT [id number] [facility] 2019-07-10 14:26:03 2019-07-10 16:33:00 Emergency Debbie Payton [facility] 1.2840.114 350.1.13.10 4.2.7.2.[id number] [facility] 2019-07-04 19:09:02 2019-07-04 22:51:00 Emergency X LISA MORFIN [facility] ERT [id number] [facility] 2019-06-30 10:33:08 2019-06-30 13:10:00 Emergency X DEON [facility] ERT [id number] [facility] 2019-05-25 11:58:19 2019-05-25 15:37:00 Emergency X DEON [facility] ERT [id number] [facility] 2019-04-09 22:29:37 2019-04-09 23:28:00 Emergency X FLORIDALMA EVANS [facility] ERT [id number] [facility] 2019-01-21 18:38:01 2019-01-21 19:59:00 Emergency Le Ramirez [facility] 1.2.840.114 350.1.13.10 4.2.7.2.686 [id number] 2019-01-21 18:38:01 2019-01-21 19:59:00 Emergency Le Ramirez [facility] 1.2.840.114 350.1.13.10 4.2.7.2.[id number] [facility] Results Test Description Test Time Test Comments Results Result Co mments Source Henry Daniel [id number] 04:20:00* Test Item Value Reference Range Interpretation Comme nts FT4 (test code = FT4) 1.05 ng/dL 0.78-2.19 T3 [id number] 04:20:00* Test Item Value Reference Range Interpretation Comme nts T3UP (test code = T3UP) 40.9 % 23.5-40.5 H Thyroxine (T4) free index in Serum or [id number] 04:19:00* Test Item Value Reference Range Interpretation Comme nts Thyroxine (T4) free index in Serum or Plasma (test code = 63885-8) 1.05 ng/dL 0.78-2.19 N [facility])Thyroid hormone uptake (T-uptake) in Serum or P 2023-11-24 04:18:00* Test Item Value Reference Range Interpretation Comme nts Thyroid hormone uptake (T-up take) in Serum or Plasma (test code = 89680-1) 40.9 % 23.5-40.5 H [facility])URINE DRUG [id number] 00:43:00* Test Item Value Reference Range Interpretation [...] abuse 5 panel - Urine by Screen [id number] 00:40:00 NegativeNegativeNegativeNegativeNegativeNegativeNegative[facility])[id number] 00:33:00* Test Item Value Reference Range Interpretation [...] /HPF 0-2 Urinalysis panel - Urine by Ipjn0964-52-48 00:33:00* Test Item Value Reference Range Interpretation Comme nts Ketones [Presence] in Urine (test code = 81812-7) 15 MG/DL NEG N pH of Urine (test code = 2756-5) 5.5 1 5.0-7.5 N Urobilinogen [Presence] in U rine (test code = 86044-9) 0.2 EU/DL 0.2-1.0 N Specific gravity of Urine (t est code = 2965-2) 1.013 1 1.0-1.025 N Leukocytes [Presence] in Uri ne sediment by Light microscopy (test code = 06518-9) 10 /HPF 0.0-5.0 H Erythrocytes [Presence] in U rine sediment by Light microscopy (test code = 04287-4) 2 /HPF 0.0-2.0 N [facility])VITAMIN [id number] 22:47:00* Test Item Value Reference Range Interpretation Comme nts B12 (test code = B12) 880 pg/mL 239-931 [id number] 22:47:00* Test Item Value Reference Range Interpretation Comme nts FOLATE (test code = FOLATE) 8.9 ng/mL 2.76-20.0 THYROID STIMULATION [id number] 22:47:00* Test Item Value Reference Range Interpretation Comme nts TSH (test code = TSH) 6.62 UIU/ML 0.465-4.68 H Cobalamin (Vitamin B12) [Mass/volume] in Nqavd2557-44-31 22:47:00* Test Item Value Reference Range Interpretation Comme nts Cobalamin (Vitamin B12) [Mass/volume] in Serum or Plasma (test code = 2132-9) 880 pg/mL 239.0-931.0 N [facility])Folate [Mass/volume] in Serum or Prgrnz3728-19-26 22:47:00* Test Item Value Reference Range Interpretation Comme nts Folate [Mass/volume] in Seru m or Plasma (test code = 2284-8) 8.9 ng/mL 2.76-20.0 N [facility])Thyrotropin in Serum or Khuvlk7290-21-84 22:47:00* Test Item Value Reference Range Interpretation Comme nts Thyrotropin in Serum or Plas ma (test code = 23401-2) 6.62 UIU/ML 0.465-4.68 H [facility])ER SCREEN FOR HIV / 22:46:00* Test Item Value Reference Range Interpretation Comme nts HIV 1/2 AB (test code = SCRN HIV) NEGATIVE NEGATIVE This test is us ed for SCREENING purposes only. All reactive results are prelimenary and confirmation results will follow. HIV 1+2 Ab [Units/volume] in Wcivp6147-28-09 22:45[facility]HEPAT[facility]IS C ANTIBODY [id number] 22:28:00* Test Item Value Reference Range Interpretation Comme nts SCRN HCV (test code = SCRN HCV) NEGATIVE NEGATIVE Hepatitis C Anti body test is for screening purposes only. All reactives will be confirmed by additional testing. Hepatitis C virus Ab [Presence] in Nkekp3384-14-26 22:27:00[facility])B-HCG QUAL (KIT)2023-11-23 22:01:00* Test Item Value Reference Range Interpretation Comme nts HCGQUAL (test code = HCGQUAL) NEGATIVE NEGATIVE URINE: NEGATIVE = < 20 mIU/ML; POSITIVE= >/= 20 mIU/ML SERUM: NEGATIVE = < 10 mIU/ML; POSITIVE= >/= 10 mIU/ML SOURCE (test code = SOURCE) SERUM HCG INTERNAL POSITIVE CNTRL (test code = HCGIPC) PASS PASS HCG LOT # (test code = UHCGLOT) [id number] HCG EXPIRATION DATE (test code = UHCGEXP) Choriogonadotropin.beta subunit ( uuty9065-84-81 22:01:00* Test Item Value Reference Range Interpretation Comme nts Specimen source [Identifier] of Body fluid (test code = 52187-5) SERUM N Reagent Lot number (test cod e = 25438-9) 1 N [facility])CT HEAD W/O [id number] 22:00:00 [facility] : 1975 Sex: F[address] [id number] IMAGING REPORTPatient Name: ROBERT, CONCEPTIONDate of Service: 78-42-3758Dgt: 48 Sex: F Order #: [id number] Room: ERSDOB: 1975 X-Ray Number: [id number] Record Number: [id number] Hospital Number: [id number] Physician: LAWRENCE MEJIASOrdering Physician: LAWRENCE MEJIASPROCEDURE: CTHEAD W/O CONTINDICATIONS: dx: psych evalorder sts: r/o rt nephrolithiasispt here for psychevalpsv: mbbExam: CT Brain without contrastComparison: NoneClinical history: Psych eval.Findings:No acute intracranial hemorrhage.Cerebral volume loss.No abnormal extra-axial fluid collections.No intracranial massNo midline shift.No skull fracture.Impression:1. No acute intracranial hemorrhage.2. Cerebral volume loss.This document has been electronically signed by: Mala Estes MD on11/23/2023 21:59:03Legally authenticated by ANGIE PHAM 2023-11-23 21:59:03CT Head and Orbit - bilateral WO [id number] 21:59:03 ORDER 1400: CT HEAD W/O CONT (LOINC: 21252-0)ORDER DATE: November 24, 2023 12:50:00 AM [facility] ABDOMEN/PELVIS [id number] 21:54:00 [facility] CONCEPTION : 1975 Sex: F[address] [id number] IMAGING REPORTPatient Name: ROBERT, CONCEPTIONDate of Service: 61-44-1165Jtd: 48 Sex: F Order #: [id number] Room: ERSDOB: 1975 X-Ray Number: [id number] Record Number: [id number] Hospital Number: [id number] Physician: LAWRENCE MEJIASOrdering Physician: LAWRENCE MEJIASPROCEDURE: CT [...] YUNIOR MCKEON 2023-11-23 21:53:03 CT Abdomen and Vuwytp6860-75-57 21:53:03ORDER 1500: CT ABDOMEN/PELVIS WITHOUT (LOINC: 44499-6)ORDER DATE: November 24, 2023 12:50:00 AM [facility])[id number] 21:31:00* Test Item Value Reference Range Interpretation [...] 70-99 Fasting glucos e normal <100 MG/DL- [employer] recommendation CALCIUM (test code = [...] of age is not validated by the utilization review coordinator and may not represent the patients true [...] should be used in the calculation". CREATINE [id number] 21:31:00* Test Item Value Reference Range Interpretation Comme nts CK (test code = CK) 115 U/L 30-135 BLOOD ALCOHOL (ETOH)2023-11-23 21:31:00* Test Item Value Reference Range Interpretation Comme nts ALCOHOL BLOOD LEVEL (test code = ALC BLD) <10 MG/DL 0-10 Results ar e to be used for medical purposes (treatment) only. Not intended for non medical purposes. Ethanol [Mass/volume] in Crwcy2723-16-49 21:30:00* Test Item Value Reference Range Interpretation Comme nts Ethanol [Mass/volume] in Blo od (test code = 5640-8) <10 0.0-10.0 [facility])Creatine kinase isoenzymes [interpretation] in 2023-11-23 21:30:00* Test Item Value Reference Range Interpretation Comme nts Creatine kinase isoenzymes [interpretation] in Serum or Plasma Narrative (test code = 59810-0) 115 U/L 30.0-135.0 [facility])Comprehensive metabolic 2000 panel - Serum [...] total [Moles/volume] in Blood (test code = 72205-7) 24 MMOL/L 22.0-30.0 N Urea nitrogen [Mass/volume] in Serum or Plasma (test code = 3094-0) 16 MG/DL 7.0-17.0 N Creatinine [Mass/volume] in Blood (test code = 44643-8) 0.6 MG/DL 0.7-1.2 L Glucose [Mass/volume] in Blood (test code = 2339-0) 80 MG/DL 70.0-99.0 N Calcium [Mass/volume] in Serum or Plasma (test code = 88906-4) 10.3 MG/DL 8.4-10.2 H Protein [Mass/volume] in Serum or Plasma (test code = 2885-2) 9.9 G/DL 6.3-8.2 H Albumin [Presence] in Serum or Plasma (test code = 98398-4) 4.7 G/DL 3.5-5.0 N Bilirubin direct and total panel [Mass/volume] - Serum or Plasma (test code = 77036-0) 0.8 MG/DL 0.2-1.3 N Aspartate aminotransferase [Enzymatic [...] 50 percent [- Reported] (test code = 45346-9) 113.0 mL/min/1.73m2 N Anion gap in Serum or Plasma (test code = 97478-3) 13 mmol/L 4.0-12.0 [facility])[id number] 21:15:00* Test Item Value Reference Range Interpretation [...] 1.2-7.2 CBC W Auto Differential panel - [id number] 21:15:00* Test Item Value Reference Range Interpretation Comme nts Leukocytes other [Identifier ] in Blood by Automated count (test code = 90315-3) 4.5 K/UL 3.5-10.9 N Erythrocytes [#/volume] in B lood (test code = 19542-9) 4.91 M/UL 4.0-5.0 N Hemoglobin A/Hemoglobin.tota l in Blood (test code = 4546-8) 13.8 G/DL 11.5-15.5 N Hematocrit [Volume Fraction] of Blood (test code = 96893-3) 42.4 % 34.0-46.0 N Erythrocyte mean corpuscular volume [Entitic volume] (test code = 18873-1) 86.4 FL 80.0-98.0 N Erythrocyte mean corpuscular hemoglobin [Entitic mass] (test code = 16972-4) 28.1 PG 28.0-32.0 N Erythrocyte mean corpuscular hemoglobin concentration [Mass/volume] (test code = 67507-9) 32.5 G/DL 32.5-36.5 N Erythrocyte distribution wid th [Ratio] (test code = 98866-3) 14.9 % 11.5-14.5 H Platelets panel - Blood by Automated count (test code = 88530-1) 124 K/UL 150.0-450.0 L Platelet mean volume [Entiti c volume] in Blood by Automated count (test code = 50383-8) 10.0 FL 7.4-10.4 N Neutrophils.segmented/100 leukocytes in Blood (test code = 00951-4) 53.3 % 40.0-75.0 N Lymphocytes Variant/100 leuk ocytes in Blood (test code = 86974-1) 33.9 % 24.0-44.0 N Lymphocytes+Monocytes/100 leukocytes in Blood (test code = 4662-3) 10.0 % 0.0-13.0 N Eosinophils [#/volume] in Bl ood (test code = 23667-7) 2.2 % 0.0-4.0 N Basophils [#/volume] in Bloo d (test code = 72749-3) 0.4 % 0.0-2.0 N Immature granulocytes/100 leukocytes in Blood (test code = 40316-8) 0.2 % 0.0-1.0 N Nucleated erythrocytes [#/vo lume] in Blood (test code = 47660-2) 0 /100 WBC N Neutrophils [#/volume] in Bl ood (test code = 02521-0) 2.4 K/UL 1.2-7.2 N [facility] ([place])PAP TEST, THINPREP, [id number] 16:02:24* Test Item Value Reference Range Interpretation Comme nts SOURCE: (test code = 8001) Cervical/Endoce rvical SLIDES: (test code = 8011) 1 LMP: (test code = 8021) SEE NOTE POST MENOPAUSAL SPECIMEN ADEQUACY: (test code = 89053) (NOTE) Satisfactory for evaluation. Endocervical cells/transformation zone component present. INTERPRETATION: (test code = 45659) NILM/NO EPITH. ABNORMALITY;SEE BELOW --- - NEGATIVE FOR INTRAEPITHELIAL LESION OR MALIGNANCY (NILM) ---- HOGSHEAD COOPER : (test code = 8101) Jami Smalls LOCATION: (test code = 89440) (NOTE) Specimens proces sed and interpreted at [facility], [address] [place] [address], , CLIA: [id number] CPT: (test code = 8140) (NOTE) 46656 UNLESS OTH ERWISE INDICATED, COMPUTER AIDED AND HOGSHEAD COOPER SCREENING PERFORMED. The Pap test is a screening test with an inherent, but low probability of error. Your patient should be reminded to consult you immediately if she experiences any suspicious signs or symptoms, regardless of her Pap test result. An alternate report format containing images or consolidated prior Pap history is available as applicable. HPV HIGH RISK WITH GENOTYPE, [id number] 15:53:52* Test Item Value Reference Range Interpretation Comme nts HPV HIGH RISK INTERP (test code = 35127) NEGATIVE NEGATIVE HPV 16 (test code = 54398) NEGATIVE HPV 18 (test code = 28414) NEGATIVE HPV, HR, OTHER GENOTYPES (test code = 75396) NEGATIVE Testing methodol ian is real-time PCR utilizing hydrolysis probes with [...] TESTING PERFORMED AT [facility] [address] [place] [address] PORTRAIT STUDIO PHOTOGRAPHER: JATIN FELIPE M.D. CLIA NUMBER [id number] [facility] [place]. [id number] HPV HIGH RISK WITH GENOTYPE, [id number] 00:00:00* Test Item Value Reference Range Interpretation Comme [facility] HPV HIGH RISK INTERP (test c ode = 04353) NEGATIVE HPV 16 (test code = 88099) NEGATIVE HPV 18 (test code = 46961) NEGATIVE HPV, HR, OTHER GENOTYPES (te st code = 94806) NEGATIVE PDFE (test code = PDFReport) PDF Henry ContrerasPAP TEST, THINPREP, [id number] 00:00:00* Test Item Value Reference Range Interpretation Comme [facility] SOURCE: (test code = 8001) Cervical/Endocervical SLIDES: (test code = 8011) 1 LMP: (test code = 8021) SEE NOTE SPECIMEN ADEQUACY: (test code = 66769) (NOTE) INTERPRETATION: (test code = 52738) NILM/NO EPITH. ABNORMALITY;SEE BELOW HOGSHEAD COOPER: (test code = 8101) Jami Smalls LOCATION: (test code = 71734) (NOTE) CPT: (test code = 8140) (NOTE) Henry ContrerasHPV HIGH RISK WITH GENOTYPE, [id number] 00:00:00* Test Item Value Reference Range Interpretation Comme [facility] HPV HIGH RISK INTERP (test c ode = 19875) NEGATIVE HPV 16 (test code = 79814) NEGATIVE HPV 18 (test code = 78074) NEGATIVE HPV, HR, OTHER GENOTYPES (te st code = 08076) NEGATIVE PDFE (test code = PDFReport) PDF Henry ContrerasPAP TEST, THINPREP, [id number] 00:00:00* Test Item Value Reference Range Interpretation Comme nts SOURCE: (test code = 8001) Cervical/Endocervical SLIDES: (test code = 8011) 1 LMP: (test code = 8021) SEE NOTE SPECIMEN ADEQUACY: (test code = 91220) (NOTE) INTERPRETATION: (test code = 05162) NILM/NO EPITH. ABNORMALITY;SEE BELOW HOGSHEAD COOPER: (test code = 8101) Jami Smalls LOCATION: (test code = 67192) (NOTE) CPT: (test code = 8140) (NOTE) Henry ContrerasHPV HIGH RISK WITH GENOTYPE, [id number] 00:00:00* Test Item Value Reference Range Interpretation Comme nts HPV HIGH RISK INTERP (test c ode = 71194) NEGATIVE HPV 16 (test code = 38996) NEGATIVE HPV 18 (test code = 09588) NEGATIVE HPV, HR, OTHER GENOTYPES (te st code = 13664) NEGATIVE PDFE (test code = PDFReport) PDF Henry ContrerasPAP TEST, THINPREP, [id number] 00:00:00* Test Item Value Reference Range Interpretation Comme nts SOURCE: (test code = 8001) Cervical/Endocervical SLIDES: (test code = 8011) 1 LMP: (test code = 8021) SEE NOTE SPECIMEN ADEQUACY: (test code = 23278) (NOTE) INTERPRETATION: (test code = 64826) NILM/NO EPITH. ABNORMALITY;SEE BELOW HOGSHEAD COOPER: (test code = 8101) Jami Smalls LOCATION: (test code = 10879) (NOTE) CPT: (test code = 8140) (NOTE) Henry ContrerasPAP TEST, THINPREP, IMAGED [ADDED]2023-10-10 00:00:00* Test Item Value Reference Range Interpretation Comme nts SOURCE: (test code = 8001) Unspecified SLIDES: (test code = 8011) 2 LMP: (test code = 8021) NOT GIVEN SPECIMEN ADEQUACY: (test code = 80908) (NOTE) INTERPRETATION: (test code = 77515) UNSATISFACTORY; SEE BELOW OTHER COMMENTS: (test code = 8081) (NOTE) HOGSHEAD COOPER: (test code = 8101) Jose Bustillos QC TECHNOLOGIST: (test code = 8111) RAUL Wilde(ASCP),IAC LOCATION: (test code = 77994) (NOTE) CPT: (test code = 8140) (NOTE) Henry F AustinHPV HIGH RISK IF ASC/LSIL, THINPREP [ADDED]2023-10-10 00:00:00* Test Item Value Reference Range Interpretation Comme nts HPV HIGH RISK IF ASC/LSIL, THINPREP (test code = 23274) CRITERIA NOT MET Henry F AustinPAP TEST, THINPREP, IMAGED [ADDED]2023-10-10 00:00:00* Test Item Value Reference Range Interpretation Comme nts SOURCE: (test code = 8001) Unspecified SLIDES: (test code = 8011) 2 LMP: (test code = 8021) NOT GIVEN SPECIMEN ADEQUACY: (test code = 85390) (NOTE) INTERPRETATION: (test code = 14555) UNSATISFACTORY; SEE BELOW OTHER COMMENTS: (test code = 8081) (NOTE) HOGSHEAD COOPER: (test code = 8101) Jose Bustillos QC TECHNOLOGIST: (test code = 8111) RAUL Wilde(ASCP),IAC LOCATION: (test code = 12802) (NOTE) CPT: (test code = 8140) (NOTE) Henry F AustinHPV HIGH RISK IF ASC/LSIL, THINPREP [ADDED]2023-10-10 00:00:00* Test Item Value Reference Range Interpretation Comme nts HPV HIGH RISK IF ASC/LSIL, THINPREP (test code = 19227) CRITERIA NOT MET Henry F AustinPAP TEST, THINPREP, IMAGED [ADDED]2023-10-10 00:00:00* Test Item Value Reference Range Interpretation Comme nts SOURCE: (test code = 8001) Unspecified SLIDES: (test code = 8011) 2 LMP: (test code = 8021) NOT GIVEN SPECIMEN ADEQUACY: (test code = 55207) (NOTE) INTERPRETATION: (test code = 98793) UNSATISFACTORY; SEE BELOW OTHER COMMENTS: (test code = 8081) (NOTE) HOGSHEAD COOPER: (test code = 8101) Jose Bustillos TECHNOLOGIST: (test code = 8111) Jason Whitman,SCT(ASCP),IAC LOCATION: (test code = 23367) (NOTE) CPT: (test code = 8140) (NOTE) Henry Quiles AustinHPV HIGH RISK IF ASC/LSIL, THINPREP [ADDED]2023-10-10 00:00:00* Test Item Value Reference Range Interpretation Comme nts HPV HIGH RISK IF ASC/LSIL, THINPREP (test code = 72704) CRITERIA NOT MET Henry Quiles AustinGONORRHEA, NAAT, THINPREP [ADDED]2023-10-08 00:00:00* Test Item Value Reference Range Interpretation Comme nts GONORRHEA, NAAT, THINPREP (t est code = 75131) NEGATIVE Henry Quiles AustinCHLAMYDIA, NAAT, THINPREP [ADDED]2023-10-08 00:00:00* Test Item Value Reference Range Interpretation Comme nts CHLAMYDIA, NAAT, THINPREP (t est code = 70331) NEGATIVE PDFE (test code = PDFReport) PDF Henry Quiles AustinGONORRHEA, NAAT, THINPREP [ADDED]2023-10-08 00:00:00* Test Item Value Reference Range Interpretation Comme nts GONORRHEA, NAAT, THINPREP (t est code = 26647) NEGATIVE Henry Quiles AustinCHLAMYDIA, NAAT, THINPREP [ADDED]2023-10-08 00:00:00* Test Item Value Reference Range Interpretation Comme nts CHLAMYDIA, NAAT, THINPREP (t est code = 19498) NEGATIVE PDFE (test code = PDFReport) PDF Henry Quiles AustinGONORRHEA, NAAT, THINPREP [ADDED]2023-10-08 00:00:00* Test Item Value Reference Range Interpretation Comme nts GONORRHEA, NAAT, THINPREP (t est code = 42604) NEGATIVE Henry Quiles AustinCHLAMYDIA, NAAT, THINPREP [ADDED]2023-10-08 00:00:00* Test Item Value Reference Range Interpretation Comme nts CHLAMYDIA, NAAT, THINPREP (t est code = 49390) NEGATIVE PDFE (test code = PDFReport) PDF HenryTRISTAN Tom [id number] 08:14:44* Test Item Value Reference Range Interpretation Comme shaina ALCALA, THIRD GENERATION (test code = 2821) 5.200 UIU/ML 0.400-4.100 H UNLESS OTHERWISE INDICATED, ALL TESTING PERFORMED AT [facility] [address] [place] [address] PORTRAIT STUDIO PHOTOGRAPHER: JATIN FELIPE M.D. IA NUMBER [id number] [facility] [place]. [id number] 00:00:00* Test Item Value Reference Range Interpretation Comme shaina TSH, THIRD GENERATION (test code = 2821) 5.200 UIU/ML Henry [id number] 00:00:00* Test Item Value Reference Range Interpretation Comme nts TSH, THIRD GENERATION (test code = 2821) 5.200 UIU/ML Henry [id number] 00:00:00* Test Item Value Reference Range Interpretation Comme shaina ALCALA, THIRD GENERATION (test code = 2821) 5.200 UIU/ML TRISTAN Grover [id number] 23:53:27* Test Item Value Reference Range Interpretation Comme shaina TSH, THIRD GENERATION (test code = 2821) 11.100 UIU/ML 0.400-4.100 H COMPREHENSIVE METABOLIC [id number] 23:46:03* Test Item Value Reference Range Interpretation Comme shaina GLUCOSE (test code = 2217) 97 MG/DL 70-99 BUN (test code = 2208) 7 MG/DL 6-20 CREATININE (test code = 2214) 0.61 MG/DL 0.60-1.30 eGFR (2020 CKD-EPI) (test code = 40156) 110 ML/MIN/1.73 >60 CALC BUN/CREAT (test code [...] 13 U/L 5-40 CBC W/AUTO DIFF WITH [id number] 08:48:44* Test Item Value Reference Range Interpretation [...] 0.00-0.10 ABS NUCLEATED RBCS (test code = 88275) 0.00 K/UL 0.00-0.11 UNLESS OTHER MONTOYA INDICATED, ALL TESTING PERFORMED AT [facility] [address] [place] [address] PORTRAIT STUDIO PHOTOGRAPHER: Derek FINNIA NUMBER [id number] [facility] [place]. [id number] 00:00:00* Test Item Value Reference Range Interpretation Comme nts TSH, THIRD GENERATION (test code = 2821) 11.100 UIU/ML Henry Etta BenCBC W/AUTO [id number] 00:00:00* Test Item Value Reference Range Interpretation [...] ABS NUCLEATED RBCS (test cod e = 50046) 0.00 K/UL Henry ContrerasCOMPREHENSIVE METABOLIC [id number] 00:00:00* Test Item Value Reference Range Interpretation Comme nts GLUCOSE (test code = 2217) 97 MG/DL BUN (test code = 2208) 7 MG/DL CREATININE (test code = 2214) 0.61 MG/DL eGFR (2020 CKD-EPI) (test code = 91075) 110 ML/MIN/1.73 CALC BUN/CREAT (test code = [...] (test code = 2219) 13 U/L Henry [id number] 00:00:00* Test Item Value Reference Range Interpretation Comme nts TSH, THIRD GENERATION (test code = 2821) 11.100 UIU/ML Henry ContrerasCBC W/AUTO [id number] 00:00:00* Test Item Value Reference Range Interpretation [...] ABS NUCLEATED RBCS (test cod e = 13957) 0.00 K/UL Henry Quiles AustinCOMPREHENSIVE METABOLIC [id number] 00:00:00* Test Item Value Reference Range Interpretation Comme nts GLUCOSE (test code = 2217) 97 MG/DL BUN (test code = 2208) 7 MG/DL CREATININE (test code = 2214) 0.61 MG/DL eGFR (2020 CKD-EPI) (test code = 03346) 110 ML/MIN/1.73 CALC BUN/CREAT (test code = [...] (test code = 2219) 13 U/L Henry [id number] 00:00:00* Test Item Value Reference Range Interpretation Comme nts TSH, THIRD GENERATION (test code = 2821) 11.100 UIU/ML Henry ContrerasCBC W/AUTO [id number] 00:00:00* Test Item Value Reference Range Interpretation [...] ABS NUCLEATED RBCS (test cod e = 07275) 0.00 K/UL Henry ContrerasCOMPREHENSIVE METABOLIC [id number] 00:00:00* Test Item Value Reference Range Interpretation Comme nts GLUCOSE (test code = 2217) 97 MG/DL BUN (test code = 2208) 7 MG/DL CREATININE (test code = 2214) 0.61 MG/DL eGFR (2020 CKD-EPI) (test code = 29170) 110 ML/MIN/1.73 CALC BUN/CREAT (test code = 2235) 11 RATIO SODIUM (test code = 2231) 132 MEQ/L POTASSIUM (test code = 2228) 4.1 MEQ/L CHLORIDE (test code = 2215) 95 MEQ/L CARBON DIOXIDE (test code = 2206) 26 MEQ/L CALCIUM (test code = 2209) 9.5 MG/DL PROTEIN, TOTAL (test code = 222) 7.9 G/DL ALBUMIN (test code = 2201) 3.8 G/DL CALC GLOBULIN (test code = 2240) 4.1 G/DL CALC A/G RATIO (test code = 2234) 0.9 RATIO BILIRUBIN, TOTAL (test code = 2207) 0.2 MG/DL ALKALINE PHOSPHATASE (test code = 220) 70 U/L AST (test code = 2218) 20 U/L ALT (test code = 2219) 13 U/L Henry [id number] 01:13:06* Test Item Value Reference Range Interpretation Comme nts TRANSFERRIN (test code = 4936) 315 MG/DL 200-360 UNLESS OTHERWISE INDICATED, ALL TESTING PERFORMED AT [facility] [address] [place] [address] PORTRAIT STUDIO PHOTOGRAPHER: JATIN FELIPE M.D. CLIA NUMBER [id number] [facility] [place]. [id number] LIPID [id number] 01:12:48* Test Item Value Reference Range Interpretation [...] SPECIMENS. FOR MOREINFORMATION, SEE CLIENT ANNOUNCEMENT AT [email or web address] RISK RATIO LDL/HDL (test code = 2237) 1.34 RATIO <3.22 COMPREHENSIVE METABOLIC [id number] 01:12:48* Test Item Value Reference Range Interpretation [...] IRON BINDING CAPACITY AND IRON AND % [id number] 01:12:48* Test Item Value Reference Range Interpretation Comme nts IRON, SERUM (test code = 2221) 51 UG/DL 37-145 UNSATURATED IBC (test code = 71812) 356 UG/DL 112-347 H CALC TOTAL IBC (test code = 2076) 407 UG/DL 250-450 CALC % IRON SAT (test code = 2078) 13 % 20-50 L [id number] 00:59:24* Test Item Value Reference Range Interpretation Comme nts FERRITIN (test code = 2074) 20 NG/ML 13-200 LIPID [id number] 00:00:00* Test Item Value Reference Range Interpretation Comme nts CHOLESTEROL (test code = 2210) 191 MG/DL TRIGLYCERIDES (test code = 2232) 89 MG/DL HDL CHOLESTEROL (test code = 2220) 74 MG/DL CALC LDL CHOL (test code = 2237) 99 MG/DL RISK RATIO LDL/HDL (test cod e = 2238) 1.34 RATIO Henry Quiles BenCOMPREHENSIVE METABOLIC [id number] 00:00:00* Test Item Value Reference Range Interpretation Comme nts GLUCOSE (test code = 2217) 92 MG/DL BUN (test code = 2208) 15 MG/DL CREATININE (test code = 2214) 0.65 MG/DL eGFR (2020 CKD-EPI) (test code = 10250) 108 ML/MIN/1.73 CALC BUN/CREAT (test code = [...] BenIRON BINDING CAPACITY AND IRON AND % [id number] 00:00:00* Test Item Value Reference Range Interpretation Comme nts IRON, SERUM (test code = 2221) 51 UG/DL UNSATURATED IBC (test code = ) 356 UG/DL CALC TOTAL IBC (test code = 2076) 407 UG/DL CALC % IRON SAT (test code = 2078) 13 % Henry [id number] 00:00:00* Test Item Value Reference Range Interpretation Comme nts FERRITIN (test code = 2074) 20 NG/ML Henry C[id number] 00:00:00* Test Item Value Reference Range Interpretation Comme nts TRANSFERRIN (test code = 4936) 315 MG/DL Henry ContrerasLIPID [id number] 00:00:00* Test Item Value Reference Range Interpretation Comme nts CHOLESTEROL (test code = 2210) 191 MG/DL TRIGLYCERIDES (test code = 2232) 89 MG/DL HDL CHOLESTEROL (test code = 2220) 74 MG/DL CALC LDL CHOL (test code = 2237) 99 MG/DL RISK RATIO LDL/HDL (test cod e = 2238) 1.34 RATIO Henry ContrerasCOMPREHENSIVE METABOLIC [id number] 00:00:00* Test Item Value Reference Range Interpretation Comme nts GLUCOSE (test code = 2217) 92 MG/DL BUN (test code = 2208) 15 MG/DL CREATININE (test code = 2214) 0.65 MG/DL eGFR (2020 CKD-EPI) (test code = 09731) 108 ML/MIN/1.73 CALC BUN/CREAT (test code = [...] ContrerasIRON BINDING CAPACITY AND IRON AND % [id number] 00:00:00* Test Item Value Reference Range Interpretation Comme nts IRON, SERUM (test code = 2221) 51 UG/DL UNSATURATED IBC (test code = ) 356 UG/DL CALC TOTAL IBC (test code = 2076) 407 UG/DL CALC % IRON SAT (test code = 2078) 13 % Henry [id number] 00:00:00* Test Item Value Reference Range Interpretation Comme nts FERRITIN (test code = 2074) 20 NG/ML Henry Quiles [id number] 00:00:00* Test Item Value Reference Range Interpretation Comme nts TRANSFERRIN (test code = 4936) 315 MG/DL Henry ContrerasLIPID [id number] 00:00:00* Test Item Value Reference Range Interpretation Comme nts CHOLESTEROL (test code = 2210) 191 MG/DL TRIGLYCERIDES (test code = 2232) 89 MG/DL HDL CHOLESTEROL (test code = 2220) 74 MG/DL CALC LDL CHOL (test code = 7) 99 MG/DL RISK RATIO LDL/HDL (test cod e = 2238) 1.34 RATIO Henry ContrerasCOMPREHENSIVE METABOLIC [id number] 00:00:00* Test Item Value Reference Range Interpretation Comme nts GLUCOSE (test code = 7) 92 MG/DL BUN (test code = 2208) 15 MG/DL CREATININE (test code = 2214) 0.65 MG/DL eGFR (2020 CKD-EPI) (test code = 34196) 108 ML/MIN/1.73 CALC BUN/CREAT (test code = [...] ContrerasIRON BINDING CAPACITY AND IRON AND % [id number] 00:00:00* Test Item Value Reference Range Interpretation Comme nts IRON, SERUM (test code = 2222) 51 UG/DL UNSATURATED IBC (test code = 31353) 356 UG/DL CALC TOTAL IBC (test code = 207) 407 UG/DL CALC % IRON SAT (test code = 207) 13 % Henry [id number] 00:00:00* Test Item Value Reference Range Interpretation Comme nts FERRITIN (test code = 2075) 20 NG/ML Henry C[id number] 00:00:00* Test Item Value Reference Range Interpretation Comme nts TRANSFERRIN (test code = 4936) 315 MG/DL Henry ContrerasHEMOGLOBIN [id number] 03:08:40* Test Item Value Reference Range Interpretation Comme nts HEMOGLOBIN A1c (test code = 97951) 5.5 % 4.2-5.6 CBC W/AUTO DIFF WITH [id number] 02:29:36* Test Item Value Reference Range Interpretation [...] 0.00-0.10 ABS NUCLEATED RBCS (test code = 76717) 0.00 K/UL 0.00-0.11 CBC W/AUTO [id number] 00:00:00* Test Item Value Reference Range Interpretation [...] ABS NUCLEATED RBCS (test cod e = 59079) 0.00 K/UL Henry Quiles AustinHEMOGLOBIN [id number] 00:00:00* Test Item Value Reference Range Interpretation Comme nts HEMOGLOBIN A1c (test code = 81195) 5.5 % Henry ContrerasCBC W/AUTO [id number] 00:00:00* Test Item Value Reference Range Interpretation [...] ABS NUCLEATED RBCS (test cod e = 38843) 0.00 K/UL Henry Quiles AustinHEMOGLOBIN [id number] 00:00:00* Test Item Value Reference Range Interpretation Comme nts HEMOGLOBIN A1c (test code = 16445) 5.5 % Henry ContrerasCBC W/AUTO [id number] 00:00:00* Test Item Value Reference Range Interpretation [...] ABS NUCLEATED RBCS (test cod e = 78867) 0.00 K/UL Henry ContrerasHEMOGLOBIN [id number] 00:00:00* Test Item Value Reference Range Interpretation Comme nts HEMOGLOBIN A1c (test code = 37861) 5.5 % Henry ContrerasDRUGS OF [id number] 05:03:00* Test Item Value Reference Range Interpretation [...] 200 ng/mL Opiates 300 ng/mL URINALYSIS WITH [id number] 04:56:00* Test Item Value Reference Range Interpretation [...] (test code = USPERM) /HPF NONE URINE [id number] 04:53:00* Test Item Value Reference Range Interpretation [...] the FDA and the [employer] (CAP) are more stringent than those required for this test. Therefore, the result should be interpreted with caution and close attention to other clinical and epidemiological data [id number] 16:00:00* Test Item Value Reference Range Interpretation Comme nts SALICYLATE (test code = 94B) <3.0 mg/dL 15.0-30.0 L LIVER [id number] 15:49:00* Test Item Value Reference Range Interpretation [...] code = 31A) <7 IU/L 10-49 L [id number] 15:48:00* Test Item Value Reference Range Interpretation [...] to interpret this result as normal/abnormal. 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 Old healed fractures of the distal tibia and fibular noted.Soft tissues: Unremarkable.IMPRESSION: No acute findings.Electronically signed by: Nikko Santiago MD 11/04/2022 3:10 PM CDT [id number] BEDSIDE [id number] 11:51:00* Test Item Value Reference Range Interpretation Comme nts GLUCOSE BEDSIDE TESTING (karen t code = GLUBED) 79 MG/DL 70-119 N GLUCOSE BEDSIDE [id number] 06:23:00* Test Item Value Reference Range Interpretation Comme nts GLUCOSE BEDSIDE TESTING (karen t code = GLUBED) 80 MG/DL 70-119 N BASIC METABOLIC [id number] 05:12:00* Test Item Value Reference Range Interpretation [...] 2.0 <2.0 indicates None DetectedPerformed At: [facility] [address] [id number] Michael Reeves MD Ph:[phone] GLUCOSE BEDSIDE [id number] 19:51:00* Test Item Value Reference Range Interpretation Comme nts GLUCOSE BEDSIDE TESTING (karen t code = GLUBED) 129 MG/DL 70-119 H OSMOLALITY [id number] 17:56:00* Test Item Value Reference Range Interpretation Comme nts OSMOLALITY SERUM (test code = OSMO) 269 mOsm/kg 275-300 L THYROID STIMULATING [id number] 17:56:00* Test Item Value Reference Range Interpretation Comme nts THYROID STIMULATING HORMONE (test code = TSH) 4.190 mc IU/ML 0.340-4.820 N GLUCOSE BEDSIDE [id number] 15:49:00* Test Item Value Reference Range Interpretation [...] code = VALP) 37.5 mcG/ML 50.0-100.0 L [id number] 14:26:00* Test Item Value Reference Range Interpretation Comme nts AMMONIA (test code = AMM) 29.0 mcMOL/L 11.0-32.0 N GLUCOSE BEDSIDE [id number] 11:51:00* Test Item Value Reference Range Interpretation Comme nts GLUCOSE BEDSIDE TESTING (karen t code = GLUBED) 88 MG/DL 70-119 N GLYCOSYLATED HEMOGLOBIN (HA1C)2022-09-18 06:53:00* Test Item Value Reference Range Interpretation Comme nts GLYCOSYLATED HEMOGLOBIN (HA1 C) (test code = GLYHGB) 5.2 % IS-A1C 4.5-5.6 N ESTIMATED AVERAGE [id number] 06:53:00* Test Item Value Reference Range Interpretation [...] to interpret this result as normal/abnormal. UR [id number] 21:28:00* Test Item Value Reference Range Interpretation Comme nts UR SODIUM RANDOM (test code = JESUSITA) 93 mmol/L 40-200 N UR POTASSIUM RANDOM (test code = KU) 54.8 mmol/L 25-125 N NO ESTABLISHED NORMAL RANGES FOR RANDOM SPECIMENS. UR CHLORIDE RANDOM (test code = CLU) 164 mmol/L 110-150 H UR OSMOLALITY [id number] 21:28:00* Test Item Value Reference Range Interpretation Comme nts UR OSMOLALITY RANDOM (test c ode = OSMOU) 475 mOsm/kg 100-1400 N CBC W/O [id number] 20:05:00* Test Item Value Reference Range Interpretation [...] = MPV) 9.5 fL 6.8-11.2 N LACTIC [id number] 19:35:00* Test Item Value Reference Range Interpretation Comme nts LACTIC ACID (test code = LACT) 1.0 mmol/L 0.4-2.0 N HCG SERUM [id number] 19:31:00* Test Item Value Reference Range Interpretation Comme nts HCG SERUM QUAL (test code = HCGQL) Negative SCREEN NEG - CT HEAD/BRAIN W/O [id number] 18:59:00 [facility] BHUM[facility]A JONES : 1975 Sex: F Patient Name: BHUMIKA JONES Unit No: [id number] EXAMS: CPT CODE: [id number] CT HEAD/BRAIN W/O CONT 13674 Location: H3 CT head, conducted on 09/17/22 at 1837 hours COMPARISON EXAMS:Head CT exam of09/17/22 at 00:06 hours TECHNIQUE: CT examination of the brain was performed without contrast on [facility] scanner. Scanning conducted from skull [...] MD Dictated Date/Time: 09/17/2022 (1858) Technologist: MALA Mraie(Abner)(CT) CTDI: DLP: Trnscrpt: 09/17/2022 (1858) [email or web address] [facility] NAME: JONES [address] PHYS: Valentina [place] [address] : 1975 AGE: 47 SEX: F LOC: JOSHUA 20 PHONE #: [phone] EXAM DATE: 09/17/2022 STATUS: ADM IN FAX #: [phone] RAD #: D/C DT PAGE 1 Signed Report Patient Name: SILAS JONESPCION Unit No: [id number] EXAMS: CPT CODE: [id number] CT HEAD/BRAIN W/O CONT 73002 (Continued) Orig Print D/T: S: 09/17/2022 (1902) DENIZ Lugo NAME: ROBERT[address] PHYS: Valentina [place] [address] : 1975 AGE: 47 SEX: F LOC: JOSHUA 20 PHONE #: [phone] EXAM DATE: 09/17/2022 STATUS: ADM IN FAX #: [phone] RAD #: D/C DT PAGE 2 Signed ReportURINALYSIS [id number] 16:28:00* Test Item Value Reference Range Interpretation [...] >0 /UL NONE-SQepi DRUGS OF ABUSE SCREEN [id number] 16:28:00* Test Item Value Reference Range Interpretation [...] interpret this result as normal/abnormal. TROP-I HIGH [id number] 16:26:00* Test Item Value Reference Range Interpretation [...] and URLs may vary bymethod. BASIC METABOLIC [id number] 16:25:00* Test Item Value Reference Range Interpretation [...] interpret this result as normal/abnormal. HEPATIC FUNCTION [id number] 16:25:00* Test Item Value Reference Range Interpretation [...] ode = CK) 92 Unit/L 26-192 N [id number] 16:25:00* Test Item Value Reference Range Interpretation Comme nts LIPASE (test code = LIP) 57 Unit/L 114-286 L - CT HEAD/BRAIN W/O [id number] 00:32:00 [facility] BH[facility]ONES : 1975 Sex: F Patient Name: BHUMIKA JONES Unit No: [id number] EXAMS: CPT CODE: [id number] CT HEAD/BRAIN W/O CONT 39413 EXAM: - CT HEAD/BRAIN W/O CONT LOCATION: [...] Terry August CTDI: DLP: Trnscrpt: 09/17/2022 (003) [email or web address] [facility] NAME: BHUMIKA JONES [address] [place] [address] Blvd PHYS: PATCA.02 - Asim [place], [place] [address] : 1975 AGE: 47 SEX: F LOC: GregorioERS PHONE #: [phone] EXAM DATE: 09/16/2022 STATUS: REG ER FAX #: [phone] RAD #: D/C DT PAGE1 Signed Report Patient Name: BHUMIKA JONES Unit No: [id number] EXAMS: CPT CODE: [id number] CT HEAD/BRAIN W/O CONT 99119 (Continued) Orig Print D/T: S: 09/17/2022 (0035) DENIZ Lugo NAME: BHUMIKA JONES [address] [place] [address] PHYS: YASMIN Asim Jack [place] [id number] : 1975 AGE: 47 SEX: F LOC: GregorioERS PHONE #: [phone] EXAM DATE: 09/16/2022 STATUS: REG ER FAX #: [phone] RAD #: D/C DT PAGE 2 Signed ReportTROP-I HIGH [id number] 00:13:00* Test Item Value Reference Range Interpretation [...] and URLs may vary bymethod. COMPREHENSIVE METABOLIC [id number] 00:11:00* Test Item Value Reference Range Interpretation [...] interpret this result as normal/abnormal. CBC W/AUTO [id number] 23:59:00* Test Item Value Reference Range Interpretation [...] K/mm3 0.0-0.05 N - XR CHEST 1 [id number] 23:34:00 [facility]: BHUMIKA JONES : 1975 Sex: FRadiant: St: PRE -- Patient Name: BHUMIKA JONES Unit No: [id number] EXAMS: CPT CODE: [id number] XR CHEST 1 V 66869 EXAMINATION: - XR CHEST 1 V CLINICAL [...] By: NadiyaJH12 Orig Print D/T: S: 09/16/2022 (1529) DENIZ Lugo NAME: SILAS JONESPCION [address] [place] [address] Bl PHYS: PATCA.02 - Asim Jack MD, [place] [address] : 1975 AGE: 47 SEX: F LOC: B.ERS PHONE #: [phone] EXAM DATE: 09/16/2022 STATUS: PRE ER FAX #: [phone] RAD NO: DC Dt: PAGE 1 Signed ReportCARBAMAZEPINE (TEGRETOL) 2022-09-15 06:12:00* Test Item Value Reference Range Interpretation Comme nts CARBAMAZEPINE (TEGRETOL) (test code = CARB) 1.5 ug/mL 4.0-12.0 L In conjunction w ith other antiepileptic drugs Therapeutic 4.0 - 8.0 Toxicity 9.0 - 12.0 Carbamazepine alone Therapeutic 8.0 - 12.0 Detection Limit = 2.0 <2.0 indicates None DetectedPerformed At: [facility] [address] [place], [place] [id number] Michael Reeves MD Ph:[phone] VALPROIC ACID (DEPAKENE)2022-09-15 06:12:00* Test Item Value Reference Range Interpretation Comme nts VALPROIC ACID (DEPAKENE) (te st code = VALP) 80.6 mcG/ML 50.0-100.0 N COMPREHENSIVE METABOLIC [id number] 06:00:00* Test Item Value Reference Range Interpretation [...] interpret this result as normal/abnormal. CBC W/AUTO [id number] 05:37:00* Test Item Value Reference Range Interpretation [...] NRBC#) 0.00 K/mm3 0.0-0.05 N GLUCOSE BEDSIDE [id number] 20:03:00* Test Item Value Reference Range Interpretation Comme nts GLUCOSE BEDSIDE TESTING (karen t code = GLUBED) 117 MG/DL 70-119 N DRUGS OF ABUSE SCREEN [id number] 11:42:00* Test Item Value Reference Range Interpretation [...] result as normal/abnormal. - CT HEAD/BRAIN W/O [id number] 11:37:00 [facility] BHUM[facility] JONES : 1975 Sex: F Patient Name: BHUMIKA JONES Unit No: [id number] EXAMS: CPT CODE: [id number] CT HEAD/BRAIN W/O CONT 60667 EXAMINATION: - CT HEAD/BRAIN W/O CONT COMPARISON: None HISTORY: Seizure LOCATION CODE: [id number]: CT of the Brain without contrast. Axial [...] MD; Jim Jaimes MD Dictated Date/Time: 09/14/2022 (0125) Technologist: ASUNCION CASTELLANO CTDI: DLP: Trnscrpt: 09/14/2022 (2018) [id number] DENIZ Lugo NAME: BHUMIKA JONES [facility] PHYS: Vladimir Menchaca MD [address] [place] [address] : 1975 AGE: 47 SEX: Etta [place] [address] LOC: NEHA 10 PHONE #: [phone] EXAM DATE: 09/14/2022 STATUS: ADM IN FAX #: [phone] RAD #: D/C DT PAGE 1 Signed Report Patient Name: BHUMIKA JONES Unit No: [id number] EXAMS: CPT CODE: [id number] CT HEAD/BRAIN W/O CONT 37597 (Continued) Orig Print D/T: S: 09/14/2022 (1140) DENIZ Lugo NAME: BHUMIKA JONES [facility] PHYS: Vladimir Menchaca MD [address] [place] [address] : 1975 AGE: 47 SEX: F [place] [address] LOC: NEHA 10 PHONE #: [phone] EXAM DATE: 09/14/2022 STATUS: ADM IN FAX #: [phone] RAD #: D/C DT PAGE 2 Signed Report PT AND [id number] 06:51:00* Test Item Value Reference Range Interpretation [...] AVOIDED DUE TO POSSIBLE HEPARINCONTAMINATION HCG SERUM [id number] 06:51:00* Test Item Value Reference Range Interpretation [...] CK) 268 Unit/L 26-192 H CBC W/AUTO [id number] 03:43:00* Test Item Value Reference Range Interpretation [...] = NRBC#) 0.00 K/mm3 0.0-0.05 N URINALYSIS [id number] 03:41:00* Test Item Value Reference Range Interpretation [...] RARE /LPF NONE - XR CHEST 2 [id number] 02:06:00 [facility] BHUMIKA JONES : 1975 Sex: F FAX: Suleman Carvalho RUTH [phone] Radiant: E St: REG Patient Name: BHUMIKA JONES Unit No: [id number] EXAMS: CPT CODE: [id number] XR CHEST 2 V 79250 EXAM: - XR CHEST 2 V HISTORY: [...] D/T: S: 09/14/2022 (020) DENIZ Lugo NAME: ROBERT[address] PHYS: GISEL - Deven,Suleman Lugo, [place] [address] : 1975 AGE: 47 SEX: F LOC: MARCOS PHONE #: [phone] EXAM DATE: 09/14/2022 STATUS: REG ERFAX #: [phone] RAD NO: DC Dt: PAGE 1 Signed ReportCOMPREHENSIVE METABOLIC [id number] 12:49:00* Test Item Value Reference Range Interpretation [...] used to interpret this result as normal/abnormal. [id number] 12:49:00* Test Item Value Reference Range Interpretation Comme nts MAGNESIUM (test code = MAG) 1.7 MG/DL 1.6-2.6 N CBC W/AUTO [id number] 12:36:00* Test Item Value Reference Range Interpretation [...] RARE /LPF NONE DRUGS OF ABUSE SCREEN [id number] 00:33:00* Test Item Value Reference Range Interpretation [...] 300 ng/mL UA RFLX MICR CULT IF [id number] 00:30:00* Test Item Value Reference Range Interpretation [...] culture: Suprapubic PainSpecimen Description: CLEAN CATCHBASIC METABOLIC [id number] 00:18:00* Test Item Value Reference Range Interpretation [...] 8.9 mg/dl 8.0-10.5 N HEPATIC FUNCTION PANEL [id number] 00:18:00* Test Item Value Reference Range Interpretation [...] ALKP) 113 Units/L 50.0-136.0 N HCG SERUM [id number] 00:18:00* Test Item Value Reference Range Interpretation Comme nts HCG SERUM QUAL (test code = HCGQL) NEGATIVE NEGATIVE [id number] 00:18:00* Test Item Value Reference Range Interpretation Comme nts ALCOHOL (test code = ALC) 0.00 gm/dL 0.00-0.00 N ETHYL ALCOHOL MIRELLA HARRELL - INTERPRETATION: 0.050 GM/DL - NOT INTOXICATED 0.100 GM/DL - INTOXICATED 0.350-0.450 GM/DL - SEVERELY INTOXICATED 0.550 GM/DL- FATAL INTOXICATION Coronavirus 2019 nCoV Fihskkd2813-38-53 00:09:00* Test Item Value Reference Range Interpretation Comme nts Coronavirus 2019 nCoV Bedside (test code = [id number]) Negative NEGATIVE Negative results should be treated as presumptive and ifinconsistent with clinical signs and symptoms, or necessaryfor patient management, should be tested with an alternativemolecular assay. Negative results do not preclude RKJI-GhH-0dvspezxri and should not be used as the sole basis forpatient management decisions. Negative results should beconsidered in the context of a patient's recent exposures,history, presence of clinical signs and symptoms consistentwith COVID-19. CBC W/AUTO [id number] 23:58:00* Test Item Value Reference Range Interpretation [...] X10 3uL 0.00-0.01 N COMP. METABOLIC PANEL (97512)2022-09-07 02:12:41* Test Item Value Reference Range Interpretation Comme nts NA (test code = 7866572920) 133 mmol/L 135-145 L K (test code = 2865483659) 4.4 mmol/L 3.5-5.0 CL (test code = 6186293666) 102 mmol/L 98-108 CO2 TOTAL (test code = 5075590475) 25 mmol/L 23-31 AGAP (test code = 0281535301) 6 2-16 BUN (test code = 6295454471) 22 mg/dL 7-23 GLUCOSE (test code = 1671251010) 97 mg/dL 70-110 CREATININE (test code = 4659021603) 0.40 mg/dL 0.50-1.04 L TOTAL BILI (test code = 2545490055) 0.3 mg/dL 0.1-1.1 CALCIUM (test code = 7333781568) 8.9 mg/dL 8.6-10.6 T PROTEIN (test code = 2522746422) 7.7 g/dL 6.3-8.2 ALBUMIN (test code = 9335408260) 4.0 g/dL 3.5-5.0 ALK PHOS (test code = 3569236220) 104 U/L 34-122 ALTv (test code = 1742-6) 15 U/L 5-35 AST(SGOT) (test code = 7045273676) 22 U/L 13-40 eGFR (test code = 7792998076) 170.4 mL/min/1.73m2 HANNAH (test code = HANNAH) [...] imaging tests). Lab Interpretation (test code = 88271-7) Abnormal [facility] WITH [id number] 02:01:20* Test Item Value Reference Range Interpretation Comme nts WBC (test code = 6690-2) 6.17 See_Comment [Automated [employer]] The system which generated this result transmitted reference range: 4.30 - 11.10 10*3/?L. The reference range was not used to interpret this result as normal/abnormal. RBC (test code = 789-8) 3.73 See_Comment L [Automated [employer]] The system which generated this result transmitted [...] 32.9 g/dL 31.6-35.1 RDW-SD (test code = 48789-6) 48.1 fL 39.0-49.9 RDW-CV (test code = 788-0) 14.7 % 12.0-15.5 PLT (test code = 777-3) 272 See_Comment [Automated messa ge] The system which generated this result transmitted reference range: 166 - 358 10*3/?L. The reference range was not used to interpret this result as normal/abnormal. MPV (test code = 76863-0) 9.6 fL 9.5-12.9 NRBC/100 WBC (test code = 8933240327) 0.0 See_Comment [Automated [employer] ssage] The system which generated this result transmitted reference range: 0.0 - 10.0 /100 WBCs. The reference range was not used to interpret this result as normal/abnormal. NRBC x10^3 (test code = 2641261404) See_Comment [Automated [employer]a ge] The system which generated this result transmitted reference range: 10*3/?L. The reference range was not used to interpret this result as normal/abnormal. GRAN MAT (NEUT) % (test code = 770-8) 42.2 % IMM GRAN % (test code = 0152258112) 0.20 % LYMPH % (test code = 736-9) 38.2 % MONO % (test code = 5905-5) 12.6 % EOS % (test code = 713-8) 5.8 % BASO % (test code = 706-2) 1.0 % GRAN MAT x10^3(ANC) (test code = 8063043310) 2.60 10*3/uL 1.88-7.09 IMM GRAN x10^3 (test code = 1065208318) 0.00-0.06 LYMPH x10^3 (test code = 731-0) 2.36 10*3/uL 1.32-3.29 MONO x10^3 (test code = 742-7) 0.78 10*3/uL 0.33-0.92 EOS x10^3 (test code = 711-2) 0.36 10*3/uL 0.03-0.39 BASO x10^3 (test code = 704-7) 0.06 10*3/uL 0.01-0.07 Lab Interpretation (test code = 13302-2) [facility]normal [facility]OVID[facility] by RT-PCR (HIGH RISK) 2020-08-19 00:00:00* Test Item Value Reference Range Interpretation Comme nts SARS-CoV-2 INTERPRETATION (t est code = 62990) NEGATIVE SOURCE (test code = 99791) NOT SPECIFIED Henry Quiles JerxdoPEZG-ScJ-6 (COVID-19) by RT-PCR (HIGH RISK)2020-08-19 00:00:00* Test Item Value Reference Range Interpretation Comme nts SARS-CoV-2 INTERPRETATION (t est code = 72800) NEGATIVE SOURCE (test code = 75862) NOT SPECIFIED Henry F BuhrlqQSFQ-PxS-0 (COVID-19) by RT-PCR (HIGH RISK)2020-08-19 00:00:00* Test Item Value Reference Range Interpretation Comme nts SARS-CoV-2 INTERPRETATION (t est code = 46815) NEGATIVE SOURCE (test code = 05620) NOT SPECIFIED Henry F AustinHPV HIGH RISK WITH GENOTYPE, [id number] 00:00:00* Test Item Value Reference Range Interpretation Comme [facility] HPV HIGH RISK INTERP (test c ode = 85856) NEGATIVE HPV 16 (test code = 26106) NEGATIVE HPV 18 (test code = 55675) NEGATIVE HPV, HR, OTHER GENOTYPES (te st code = 16621) NEGATIVE Henry F AustinPAP TEST, THINPREP, [id number] 00:00:00* Test Item Value Reference Range Interpretation Comme nts SOURCE: (test code = 8001) Cervical/Endocervical SLIDES: (test code = 8011) 1 LMP: (test code = 8021) 06/2017 SPECIMEN ADEQUACY: (test code = 93421) (NOTE) INTERPRETATION: (test code = 53378) NILM/NO EPITH. ABNORMALITY;SEE BELOW HOGSHEAD COOPER: (test code = 8101) [place], CT(ASCP) IAC LOCATION: (test code = 51933) (NOTE) CPT: (test code = 8140) (NOTE) Henry Quiles AustinHPV HIGH RISK WITH GENOTYPE, [id number] 00:00:00* Test Item Value Reference Range Interpretation Comme nts HPV HIGH RISK INTERP (test c ode = 94425) NEGATIVE HPV 16 (test code = 22084) NEGATIVE HPV 18 (test code = 06453) NEGATIVE HPV, HR, OTHER GENOTYPES (te st code = 83203) NEGATIVE Henry Quiles AustinPAP TEST, THINPREP, [id number] 00:00:00* Test Item Value Reference Range Interpretation Comme nts SOURCE: (test code = 8001) Cervical/Endocervical SLIDES: (test code = 8011) 1 LMP: (test code = 8021) 06/2017 SPECIMEN ADEQUACY: (test code = 65822) (NOTE) INTERPRETATION: (test code = 90672) NILM/NO EPITH. ABNORMALITY;SEE BELOW HOGSHEAD COOPER: (test code = 8101) [place], CT(ASCP) IAC LOCATION: (test code = 59212) (NOTE) CPT: (test code = 8140) (NOTE) Henry Quiles AustinHPV HIGH RISK WITH GENOTYPE, [id number] 00:00:00* Test Item Value Reference Range Interpretation Comme nts HPV HIGH RISK INTERP (test c ode = 18104) NEGATIVE HPV 16 (test code = 33018) NEGATIVE HPV 18 (test code = 25351) NEGATIVE HPV, HR, OTHER GENOTYPES (te st code = 97262) NEGATIVE Henry ContrerasPAP TEST, THINPREP, [id number] 00:00:00* Test Item Value Reference Range Interpretation Comme nts SOURCE: (test code = 8001) Cervical/Endocervical SLIDES: (test code = 8011) 1 LMP: (test code = 8021) 06/2017 SPECIMEN ADEQUACY: (test code = 98468) (NOTE) INTERPRETATION: (test code = 30322) NILM/NO EPITH. ABNORMALITY;SEE BELOW HOGSHEAD COOPER: (test code = 8101) [facility] IAC LOCATION: (test code = 30672) (NOTE) CPT: (test code = 8140) (NOTE) Henry ContrerasCT HEAD WO IDHNHOXN2212-67-92 22:34:12Impression: 1. ?No acute intracranial process. 2. [...] he patient. Please correlate with history and physicalexamination.[facility] CenterXR CERVICAL SPINE 2 [id number] 22:29:40No acute osseous abnormality. Preliminary Report Dictated [...] and agree with theabove report.[facility] CenterCB WITH RVDYWZRWNMEQ4194-39-52 21:46:00* Test Item Value Reference Range Interpretation [...] 32.2 g/dL 31.6-35.1 RDW-SD (test code = 87880-6) 45.1 fL 39-49.9 RDW-CV (test code = 788-0) 14.6 % 12-15.5 PLT (test code = 777-3) See_Comment L [Automated messa ge] The system which generated this result transmitted reference range: 166 - 358 10*3/?L. The reference range was not used to interpret this result as normal/abnormal. MPV (test code = 89105-5) 9.0 fL 9.5-12.9 L NRBC/100 WBC (test code = 8017705656) See_Comment [Automated me ssage] The system which generated this result transmitted reference range: 0.0 - 10.0 /100 WBCs. The reference range was not used to interpret this result as normal/abnormal. NRBC x10^3 (test code = 4526646296) <0.01 See_Comment [Automated messa ge] The system which generated this result transmitted reference range: 10*3/?L. The reference range was not used to interpret this result as normal/abnormal. GRAN MAT (NEUT) % (test code = 770-8) 51.3 % IMM GRAN % (test code = 0260473499) 0.40 % LYMPH % (test code = 736-9) 24.4 % MONO % (test code = 5905-5) 23.1 % EOS % (test code = 713-8) 0.4 % BASO % (test code = 706-2) 0.4 % GRAN MAT x10^3(ANC) (test code = 5789098733) 2.48 10*3/uL 1.88-7.09 IMM GRAN x10^3 (test code = 4349455865) <0.03 0-0.06 LYMPH x10^3 (test code = 731-0) 1.18 10*3/uL 1.32-3.29 L MONO x10^3 (test code = 742-7) 1.12 10*3/uL 0.33-0.92 H EOS x10^3 (test code = 711-2) <0.03 0.03-0.39 L BASO x10^3 (test code = 704-7) <0.03 0.01-0.07 Lab Interpretation (test code = 30177-0) Abnormal [facility] CERV[facility] SPINE 2 [id number] 03:28:03No acute osseous abnormality. Preliminary Report Dictated [...] osseous abnormality.Preliminary Report Dictated by Resident: Carl Braden, Brandon Villegas MD., have reviewed this study and agree withthe above report. [facility] CenterValproic Acid Qevec3557-48-62 08:03:22* Test Item Value Reference Range Interpretation Comme nts Valproic Acid Level (test co de = Valproic Acid Level) 57.6 ug/mL(g) 50.0-100.0 Hemoglobin [id number] 09:36:00* Test Item Value Reference Range Interpretation Comme nts Hemoglobin A1c (test code = Hemoglobin A1c) 5.0 % 4.8-5.9 Non Diabetic 4.8-5.9%Diabetic <7.0% CT Shoulder w/o Contrast Rtna1768-72-32 16:49:13Patient: BHUMIKA JONES Date/Time01/09/2019 16:14 CDTReason for [...] Adam FSigned (Electronic Signature): 01/09/2019 4:49 pmRPR Pxxbxiytrfr4488-27-08 21:33:20* Test Item Value Reference Range Interpretation [...] 04-23-2020 N XR Shoulder Complete 2+ Views Mzte7311-58-28 15:41:25Patient: BHUMIKA JONES Date/Time01/07/2019 15:25 CDTReason for [...] CSigned (Electronic Signature): 01/07/2019 3:41 pmThyroid Stimulating Srpkyki3371-15-04 03:07:04* Test Item Value Reference Range Interpretation Comme nts TSH (test code = TSH) 9.650 mIU/mL 0.270-4.200 H Lipid Vmgdq7066-84-07 03:07:03* Test Item Value Reference Range Interpretation Comme nts Cholesterol Total (test code = Cholesterol Total) 199 mg/dL 0-200 RISK OF HEART DISEASEPublished by Stateless Heart Association Analyte Optimal Borderline Increased RiskCHOL [...] is LDL/HDL Ratio=LDL Calc/HDL Chol HCG Qualitative Fpiik8880-08-57 02:33:13* Test Item Value Reference Range Interpretation Comme nts HCG, Serum Qual (test code = HCG, Serum Qual) Negative Lot # (test code = Lot #) [id number] N Expiration Dt (test code = Expiration Dt) 2020-04-23 N Neg Control (test code = Neg Control) Negative Pos Control (test code = Pos Control) Positive Internal QC (test code = Int ernal QC) Acceptable Drugs of Abuse Urine [id number] 18:58:11* Test Item Value Reference Range Interpretation [...] = Cannabinoid Screen Ur) Negative Negative Alcohol Etvqb7279-92-16 18:47:34* Test Item Value Reference Range Interpretation Comme nts Ethanol Level (test code = Ethanol Level) <0.00 g/dL 0.00-0.01 Intoxicated 0.08 0 g/dL or more Ethanol Inst (test code = Ethanol Inst) <0 N Comprehensive Metabolic Hurol7457-08-75 18:47:33* Test Item Value Reference Range Interpretation [...] A/G Ratio) 1.0 ratio N Comprehensive Metabolic Myrwq8398-06-66 18:47:33* Test Item Value Reference Range Interpretation [...] is not provided, and the patient is -Stateless, multiply by 1.212. If sex is not [...] the National Kidney Foundation, http://nkdep.nih.gov Comprehensive Metabolic Lkgfq2221-41-96 18:47:33* Test Item Value Reference Range Interpretation [...] is not provided, and the patient is -Stateless, multiply by 1.212. If sex is not [...] is not provided, and the patient is -Stateless, multiply by 1.212. If sex is not [...] Kidney Foundation, http://nkdep.nih.gov Complete Blood Count with Pntdiscddxzz2459-87-90 18:15:23* Test Item Value Reference Range Interpretation [...] code = IPF) 0 % N Automated Wkhfcnjtamra6982-98-68 18:15:23* Test Item Value Reference Range Interpretation Comme nts Neutro Auto (test code = Sunny tro Auto) 42.1 % 36.0-70.0 Lymph Auto (test code = Lymph Auto) 40.0 % 12.0-44.0 [place] Auto (test code = [place] Auto) 12.2 % 0.0-11.0 H Eos, Auto (test code = Eos, Auto) 4.9 % 0.0-7.0 Basophil Auto (test code = B asophil Auto) 0.6 % 0.0-2.0 Neutro Absolute (test code = Neutro Absolute) 2.2 x10 1.6-7.4 Lymph Absolute (test code = Lymph Absolute) 2.06 x10 .50-4.60 [place] Absolute (test code = M richa Absolute) .63 x10 .00-1.20 Eos Absolute (test code = Eo s Absolute) 0.25 x10 0.00-0.74 Baso Absolute (test code = B aso Absolute) 0.03 x10 0.00-0.21 IG Nkwwg4007-56-67 18:15:23* Test Item Value Reference Range Interpretation Comme nts IG (test code = IG) 0.2 % 0.0-5.0 IG Abs (test code = IG Abs) 0 x10 N VALPROIC [id number] 00:00:00* Test Item Value Reference Range Interpretation Comme nts VALPROIC ACID (test code = 3025) 69.8 UG/ML Henry Quiles AustinVALPROIC NPEV5885-21-96 00:00:00* Test Item Value Reference Range Interpretation Comme nts VALPROIC ACID (test code = 3025) 69.8 UG/ML Henry Quiles AustinVALPROIC HOFT8982-39-57 00:00:00* Test Item Value Reference Range Interpretation Comme nts VALPROIC ACID (test code = 3025) 69.8 UG/ML Henry Quiles AustinURINE CULTURE, NO [id number] 00:00:00* Test Item Value Reference Range Interpretation Comme nts URINE CULTURE, NO SENS (test code = 92624) SPECIMEN NUMBER: [id number] Henry Quiles AustinURINE CULTURE, NO [id number] 00:00:00* Test Item Value Reference Range Interpretation Comme nts URINE CULTURE, NO SENS (test code = 23717) SPECIMEN NUMBER: [id number] Henry Quiles AustinURINE CULTURE, NO [id number] 00:00:00* Test Item Value Reference Range Interpretation Comme nts URINE CULTURE, NO SENS (test code = 42010) SPECIMEN NUMBER: [id number] Henry Quiles AustinIRON BINDING CAPACITY AND IRON AND % [id number] 00:00:00* Test Item Value Reference Range Interpretation Comme nts IRON, SERUM (test code = 2222) 42 UG/DL UNSATURATED IBC (test code = 78262) 279 UG/DL CALC TOTAL IBC (test code = 7) 321 UG/DL CALC % IRON SAT (test code = 9) 13 % Henry Quiles [id number] 00:00:00* Test Item Value Reference Range Interpretation Comme nts FERRITIN (test code = 2075) 15 NG/ML Henry Quiles [id number] 00:00:00* Test Item Value Reference Range Interpretation Comme nts TRANSFERRIN (test code = 4936) 269 MG/DL Henry Quiles AustinFOLIC [id number] 00:00:00* Test Item Value Reference Range Interpretation Comme nts FOLIC ACID (test code = 2695) 5.4 UG/L Henry Quiles AustinIRON BINDING CAPACITY AND IRON AND % [id number] 00:00:00* Test Item Value Reference Range Interpretation Comme nts IRON, SERUM (test code = 2) 42 UG/DL UNSATURATED IBC (test code = 00584) 279 UG/DL CALC TOTAL IBC (test code = 7) 321 UG/DL CALC % IRON SAT (test code = 9) 13 % Henry Quiles [id number] 00:00:00* Test Item Value Reference Range Interpretation Comme nts FERRITIN (test code = 2075) 15 NG/ML Henry Quiles [id number] 00:00:00* Test Item Value Reference Range Interpretation Comme nts TRANSFERRIN (test code = 4936) 269 MG/DL Henry Quiles AustinFOLIC [id number] 00:00:00* Test Item Value Reference Range Interpretation Comme nts FOLIC ACID (test code = 2695) 5.4 UG/L Henry Quiles AustinIRON BINDING CAPACITY AND IRON AND % [id number] 00:00:00* Test Item Value Reference Range Interpretation Comme nts IRON, SERUM (test code = 2222) 42 UG/DL UNSATURATED IBC (test code = 20603) 279 UG/DL CALC TOTAL IBC (test code = 2077) 321 UG/DL CALC % IRON SAT (test code = 2079) 13 % Henry Quiles [id number] 00:00:00* Test Item Value Reference Range Interpretation Comme nts FERRITIN (test code = 2075) 15 NG/ML Henry Quiles [id number] 00:00:00* Test Item Value Reference Range Interpretation Comme nts TRANSFERRIN (test code = 4936) 269 MG/DL Henry Quiles AustinFOLIC [id number] 00:00:00* Test Item Value Reference Range Interpretation Comme nts FOLIC ACID (test code = 2695) 5.4 UG/L Henry Quiles AustinCULTURE, URINE [ADDED]2018-06-12 00:00:00* Test Item Value Reference Range Interpretation Comme nts CULTURE, URINE (test code = 30989) SPECIMEN NUMBER: [id number] Henry Quiles AustinCULTURE, URINE [ADDED]2018-06-12 00:00:00* Test Item Value Reference Range Interpretation Comme nts CULTURE, URINE (test code = 61079) SPECIMEN NUMBER: [id number] Henry Quiles AustinCULTURE, URINE [ADDED]2018-06-12 00:00:00* Test Item Value Reference Range Interpretation Comme nts CULTURE, URINE (test code = 55566) SPECIMEN NUMBER: [id number] Henry Quiles AustinCBC W/AUTO [id number] 00:00:00* Test Item Value Reference Range Interpretation [...] = 1015) 184 K/UL Henry ContrerasCOMPREHENSIVE METABOLIC [id number] 00:00:00* Test Item Value Reference Range Interpretation Comme nts GLUCOSE (test code = 2217) 86 MG/DL BUN (test code = 2208) 16 MG/DL CREATININE (test code = 2214) 0.45 MG/DL eGFR AMER. (test cod e = 25863) 141 ML/MIN/1.73 eGFR NON- AMER. (test code = 97972) 122 ML/MIN/1.73 CALC BUN/CREAT (test code = [...] code = 2219) 17 U/L Henry ContrerasVALPROIC [id number] 00:00:00* Test Item Value Reference Range Interpretation Comme nts VALPROIC ACID (test code = 3025) 100.9 UG/ML Henry ContrerasCBC W/AUTO [id number] 00:00:00* Test Item Value Reference Range Interpretation [...] = 1015) 184 K/UL Henry ContrerasCOMPREHENSIVE METABOLIC [id number] 00:00:00* Test Item Value Reference Range Interpretation Comme nts GLUCOSE (test code = 2217) 86 MG/DL BUN (test code = 2208) 16 MG/DL CREATININE (test code = 2214) 0.45 MG/DL eGFR AMER. (test cod e = 30268) 141 ML/MIN/1.73 eGFR NON- AMER. (test code = 93048) 122 ML/MIN/1.73 CALC BUN/CREAT (test code = [...] code = 2219) 17 U/L Henry ContrerasVALPROIC [id number] 00:00:00* Test Item Value Reference Range Interpretation Comme nts VALPROIC ACID (test code = 3025) 100.9 UG/ML Henry ContrerasCBC W/AUTO [id number] 00:00:00* Test Item Value Reference Range Interpretation [...] = 1015) 184 K/UL Henry ContrerasCOMPREHENSIVE METABOLIC [id number] 00:00:00* Test Item Value Reference Range Interpretation Comme nts GLUCOSE (test code = 2217) 86 MG/DL BUN (test code = 2208) 16 MG/DL CREATININE (test code = 2214) 0.45 MG/DL eGFR AMER. (test cod e = 36765) 141 ML/MIN/1.73 eGFR NON- AMER. (test code = 81880) 122 ML/MIN/1.73 CALC BUN/CREAT (test code = [...] code = 2219) 17 U/L Henry ContrerasVALPROIC [id number] 00:00:00* Test Item Value Reference Range Interpretation Comme nts VALPROIC ACID (test code = 3025) 100.9 UG/ML Henry ContrerasPAP TEST, THINPREP, [id number] 00:00:00* Test Item Value Reference Range Interpretation Comme nts SOURCE: (test code = 8001) Cervical/Endocervical SLIDES: (test code = 8011) 1 LMP: (test code = 8021) 03/2017 SPECIMEN ADEQUACY: (test code = 35225) (NOTE) INTERPRETATION: (test code = 17344) NO EPITHELIAL ABNORMALITY SEE BELOW HOGSHEAD COOPER: (test code = 8101) KANA Merida(ASCP)IAC LOCATION: (test code = 69813) (NOTE) CPT: (test code = 8140) (NOTE) Henry ContrerasHPV HIGH RISK WITH GENOTYPE, [id number] 00:00:00* Test Item Value Reference Range Interpretation Comme nts HPV HIGH RISK INTERP (test c ode = 38919) NEGATIVE HPV 16 (test code = 59341) NEGATIVE HPV 18 (test code = 22685) NEGATIVE HPV, HR, OTHER GENOTYPES (te st code = 52669) NEGATIVE Henry ContrerasPAP TEST, THINPREP, [id number] 00:00:00* Test Item Value Reference Range Interpretation Comme nts SOURCE: (test code = 8001) Cervical/Endocervical SLIDES: (test code = 8011) 1 LMP: (test code = 8021) 03/2017 SPECIMEN ADEQUACY: (test code = 83500) (NOTE) INTERPRETATION: (test code = 90392) NO EPITHELIAL ABNORMALITY SEE BELOW HOGSHEAD COOPER: (test code = 8101) KANA Merida(ASCP)IAC LOCATION: (test code = 41577) (NOTE) CPT: (test code = 8140) (NOTE) Henry ContrerasHPV HIGH RISK WITH GENOTYPE, [id number] 00:00:00* Test Item Value Reference Range Interpretation Comme nts HPV HIGH RISK INTERP (test c ode = 37864) NEGATIVE HPV 16 (test code = 88175) NEGATIVE HPV 18 (test code = 70455) NEGATIVE HPV, HR, OTHER GENOTYPES (te st code = 00565) NEGATIVE Henry ContrerasPAP TEST, THINPREP, [id number] 00:00:00* Test Item Value Reference Range Interpretation Comme nts SOURCE: (test code = 8001) Cervical/Endocervical SLIDES: (test code = 8011) 1 LMP: (test code = 8021) 03/2017 SPECIMEN ADEQUACY: (test code = 48410) (NOTE) INTERPRETATION: (test code = 01967) NO EPITHELIAL ABNORMALITY SEE BELOW HOGSHEAD COOPER: (test code = 8101) KANA Merida(ASCP)IAC LOCATION: (test code = 25124) (NOTE) CPT: (test code = 8140) (NOTE) Henry ContrerasHPV HIGH RISK WITH GENOTYPE, [id number] 00:00:00* Test Item Value Reference Range Interpretation Comme nts HPV HIGH RISK INTERP (test c ode = 74076) NEGATIVE HPV 16 (test code = 73372) NEGATIVE HPV 18 (test code = 65872) NEGATIVE HPV, HR, OTHER GENOTYPES (te st code = 27029) NEGATIVE Henry ContrerasHIV AB/AG COMBO RFLX [id number] 00:00:00* Test Item Value Reference Range Interpretation Comme nts HIV 1/2 4TH GEN, RFLX CONF ( test code = 3514) NON-REACTIVE Henry Quiles AustinGC AND CHLAMYDIA AMPLIFIED, [id number] 00:00:00* Test Item Value Reference Range Interpretation Comme nts GONORRHEA, TMA (test code = 71943) NEGATIVE CHLAMYDIA, TMA (test code = 61086) NEGATIVE Henry Quiles AustinGC AND CHLAMYDIA AMPLIFIED, [id number] 00:00:00* Test Item Value Reference Range Interpretation Comme nts GONORRHEA, TMA (test code = 52671) NEGATIVE CHLAMYDIA, TMA (test code = 44442) NEGATIVE Henry ContrerasHIV AB/AG COMBO RFLX [id number] 00:00:00* Test Item Value Reference Range Interpretation Comme nts HIV 1/2 4TH GEN, RFLX CONF ( test code = 3514) NON-REACTIVE Henry ContrerasGC AND CHLAMYDIA AMPLIFIED, [id number] 00:00:00* Test Item Value Reference Range Interpretation Comme nts GONORRHEA, TMA (test code = 46932) NEGATIVE CHLAMYDIA, TMA (test code = 65669) NEGATIVE Henry ContrerasHIV AB/AG COMBO RFLX [id number] 00:00:00* Test Item Value Reference Range Interpretation Comme nts HIV 1/2 4TH GEN, RFLX CONF ( test code = 3514) NON-REACTIVE Henry ContrerasLIPID [id number] 00:00:00* Test Item Value Reference Range Interpretation Comme nts CHOLESTEROL (test code = 2210) 186 MG/DL TRIGLYCERIDES (test code = 2232) 131 MG/DL HDL CHOLESTEROL (test code = 2220) 67 MG/DL CALC LDL CHOL (test code = 2237) 93 MG/DL RISK RATIO LDL/HDL (test cod e = 2238) 1.39 RATIO Henry ContrerasCBC W/AUTO [id number] 00:00:00* Test Item Value Reference Range Interpretation [...] code = 1015) 152 K/UL Henry ContrerasHEMOGLOBIN [id number] 00:00:00* Test Item Value Reference Range Interpretation Comme shaina HEMOGLOBIN A1c (test code = 07085) 5.2 % Henry [id number] 00:00:00* Test Item Value Reference Range Interpretation Comme nts TSH (test code = 2821) 2.020 UIU/ML Henry ContrerasCOMPREHENSIVE METABOLIC [id number] 00:00:00* Test Item Value Reference Range Interpretation Comme nts GLUCOSE (test code = 2217) 90 MG/DL BUN (test code = 2208) 21 MG/DL CREATININE (test code = 2214) 0.42 MG/DL eGFR AMER. (test cod e = 24994) 145 ML/MIN/1.73 eGFR NON- AMER. (test code = 13185) 126 ML/MIN/1.73 CALC BUN/CREAT (test code = [...] code = 2219) <5 U/L Henry ContrerasLIPID [id number] 00:00:00* Test Item Value Reference Range Interpretation Comme nts CHOLESTEROL (test code = 2210) 186 MG/DL TRIGLYCERIDES (test code = 2232) 131 MG/DL HDL CHOLESTEROL (test code = 2220) 67 MG/DL CALC LDL CHOL (test code = 2237) 93 MG/DL RISK RATIO LDL/HDL (test cod e = 2238) 1.39 RATIO Henry ContrerasCBC W/AUTO [id number] 00:00:00* Test Item Value Reference Range Interpretation [...] code = 1015) 152 K/UL Henry ContrerasHEMOGLOBIN [id number] 00:00:00* Test Item Value Reference Range Interpretation Comme nts HEMOGLOBIN A1c (test code = 63250) 5.2 % Henry [id number] 00:00:00* Test Item Value Reference Range Interpretation Comme nts TSH (test code = 2821) 2.020 UIU/ML Henry ContrerasCOMPREHENSIVE METABOLIC [id number] 00:00:00* Test Item Value Reference Range Interpretation Comme nts GLUCOSE (test code = 2217) 90 MG/DL BUN (test code = 2208) 21 MG/DL CREATININE (test code = 2214) 0.42 MG/DL eGFR AMER. (test cod e = 62916) 145 ML/MIN/1.73 eGFR NON- AMER. (test code = 84679) 126 ML/MIN/1.73 CALC BUN/CREAT (test code = [...] code = 2219) <5 U/L Henry ContrerasLIPID [id number] 00:00:00* Test Item Value Reference Range Interpretation Comme nts CHOLESTEROL (test code = 2210) 186 MG/DL TRIGLYCERIDES (test code = 2232) 131 MG/DL HDL CHOLESTEROL (test code = 2220) 67 MG/DL CALC LDL CHOL (test code = 2237) 93 MG/DL RISK RATIO LDL/HDL (test cod e = 2238) 1.39 RATIO Henry ContrerasCBC W/AUTO [id number] 00:00:00* Test Item Value Reference Range Interpretation [...] code = 1015) 152 K/UL Henry ContrerasHEMOGLOBIN [id number] 00:00:00* Test Item Value Reference Range Interpretation Comme nts HEMOGLOBIN A1c (test code = 42336) 5.2 % Henry [id number] 00:00:00* Test Item Value Reference Range Interpretation Comme nts TSH (test code = 2821) 2.020 UIU/ML Henry ContrerasCOMPREHENSIVE METABOLIC [id number] 00:00:00* Test Item Value Reference Range Interpretation Comme nts GLUCOSE (test code = 2217) 90 MG/DL BUN (test code = 2208) 21 MG/DL CREATININE (test code = 2214) 0.42 MG/DL eGFR AMER. (test cod e = 83091) 145 ML/MIN/1.73 eGFR NON- AMER. (test code = 21966) 126 ML/MIN/1.73 CALC BUN/CREAT (test code = [...] Notes Date/Time Note Provider Source Henry Contreras [facility]2024-06-04 04:23:47 PATIENT OPEN ORDERS Code System Description Frequency Occurrences Priority [place] [address] [facility] EKG study ONE TIME 0 Stat November 24, 2023 12:29:00 AM [facility] MAGALIE BRAVO [id number] on November 24, 2023 12:29:00 AM [facility] SCHEDULED PROCEDURES Code System Description Status Scheduled Date Updated By Patient scheduled procedure information is not available. [facility]2024-06-04 04:23:47 CARE telecommunications professional Role on Team Status Start Date End Date Update d By NO PCP Referring normal November 24, 2023 2:17:11 AM [facility] November 25, 2023 12:04:00 AM [facility] [id number] on November 24, 2023 2:17:11 AM [facility] MAGALIE BRAVO Attending normal November 24, 2023 2:17:11 AM [facility] November 25, 2023 12:04:00 AM [facility] [id number] on November 24, 2023 2:17:11 AM [facility] MAGALIE BRAVO Admitting normal November 24, 2023 2:17:11 AM [facility] November 25, 2023 12:04:00 AM [facility] [id number] on November 24, 2023 2:17:11 AM [facility] NO PCP PCP normal November 24, 2023 2:17:11 AM [facility] November 25, 2023 12:04:00 AM [facility] [id number] on November 24, 2023 2:17:11 AM [facility]2024-06-03 00:00:00 Henry Goldberg [facility]2024-06-02 19:05:13 PATIENT OPEN ORDERS Code System Description Frequency Occurrences Priority [place] [id number] [facility] EKG study ONE TIME 0 Stat November 24, 2023 12:29:00 AM [facility] MAGALIE BRAVO [id number] on November 24, 2023 12:29:00 AM [facility] SCHEDULED PROCEDURES Code System Description Status Scheduled Date Updated By Patient scheduled procedure information is not available. [facility]2024-06-02 19:05:13 CARE telecommunications professional Role on Team Status Start Date End Date Update d By NO PCP Referring normal November 24, 2023 2:17:11 AM [facility] November 25, 2023 12:04:00 AM [facility] [id number] on November 24, 2023 2:17:11 AM [facility] MAGALIE BRAVO Attending normal November 24, 2023 2:17:11 AM [facility] November 25, 2023 12:04:00 AM [facility] [id number] on November 24, 2023 2:17:11 AM [facility] MAGALIE BRAVO Admitting normal November 24, 2023 2:17:11 AM [facility] November 25, 2023 12:04:00 AM [facility] [id number] on November 24, 2023 2:17:11 AM [facility] NO PCP PCP normal November 24, 2023 2:17:11 AM [facility] November 25, 2023 12:04:00 AM [facility] [id number] on November 24, 2023 2:17:11 AM [facility]2024-06-01 21:59:[address] [address] DIAGNOSTIC IMAGING REPORT Patient Name: JONES, CONCEPTION Date of Service: 11-23-2023 Age: 48 Sex: F Order #: [id number] Room: [facility] : 1975 X-Ray Number: [id number] Hospital Number: [id number] Admitting Physician: LAWRENCE MEJIAS Ordering Physician: LAWRENCE [...] document has been electronically signed by: Mala Estes MD on 11/23/2023 21:59:03 Legally authenticated by ANGIE PHAM 2023-11-23 [facility] [id number] 21:53:03[place] [address] DIAGNOSTIC IMAGING REPORT Patient Name: ROBERT, CONCEPTION Date of Service: 11-23-2023 Age: 48 Sex: F Order #: [id number] Room: [facility] : 1975 X-Ray Number: [id number] Hospital Number: [id number] Admitting Physician: LAWRENCE MEJIAS Ordering Physician: LAWRENCE [...] 21:53:03ALON DEL RIO 2023-10-25 00:00:00 Henry Goldberg [facility]2024-04-10 09:45:21 We are unable to release any pt information with out prior pt permission. However, Risperdal is not generally managed by neurology and would be best managed by psychiatrist. Robyn [facility]2024-04-09 16:15:28 Copied from [facility] #[id number]. Topic: Clinical - Order >> Oct 01, 2023 4:13 PM Patient Business Office Specialist wrote: [facility] is calling regarding medication risperdal they were givng her 3mg and stating had dropped it to 1mg trying to confirm change Call [phone] [facility] NashLaxpff6044-76-29 12:29:00 [facility] ([facility] Hospitalist Discharge Summary REPORT#:[id number] REPORT STATUS: Signed DATE:10/11/22 TIME: 1229 PATIENT: BHUMIKA JONES UNIT #: [id number] ROOM/BED: [place] [address] : [birth year] AGE: 47 SEX: F ATTEND: [...] patient this morning with the help of criminal intelligence analyst and she said that he lives with [...] refill, normal range of motion, no edema Neuro/INSPECTOR RAW QUARTZ: altered mental status, alert Discharge Instructions PCP Discharge to: Home/Self Care Additional Discharge Routines: PCP Follow-Up Diet: Resume Home Diet/Feeds Activity: As Tolerated Follow-up Appointments PCP follow-up: PCP: No Primary or Family Physician PCP follow up timeframe: In 6 days at 1230 RPT #:[id number] END OF [id number] 17:27:00 [facility] ([facility]) Electroencephalogram-EEG REPORT#:[id number] REPORT STATUS: Signed DATE:09/18/22 TIME: 1726 PATIENT: BHUMIKA JONES UNIT #: [id number] ROOM/BED: [place] [address] : [birth year] AGE: 47 SEX: F ATTEND: [...] 09/18 0900 CAN (KEPPRA IV) IV 10/18 0901 Sodium Chloride 92.5 ML (SODIUM CHLORIDE 0.9%) [...] open eyes (commands were obtained using a ladler) with opening the eyes the patient would [...] with the patient mentioned. at 1736 RPT #:[id number] END OF [id number] 14:24:00 [facility] ([facility] Neurology Consultation Note REPORT#:[id number] REPORT STATUS: Signed DATE:09/18/22 TIME: 1424 PATIENT: BHUMIKA JONES UNIT #: [id number] ROOM/BED: [place] [address] : [birth year] AGE: 47 SEX: F ATTEND: Marly Mendenhall MD ADM AUTHOR: Nelia Parker MD * ALL edits or amendments must be made on the electronic/computer document * See Addendum History of Present Illness HPI Requesting clinician: see consult order Reason for consult: "AMS" Chief complaint: wanting to go home for her family HPI: 47-year-old female Mauritanian speaking only who was brought into the [...] <10 MG 09/18 09/18 09/17 09/17 0553 0505 6815 8521 Chemistry Hemoglobin A1c (4.5 - 5.6 % [...] - 8.0 pH UNITS) 6.5 Ur Specific [place] (1.001 - 1.035 SG) 1.013 Urine Protein [...] the past or not. at 1652 RPT #:[id number] END OF [id number] 11:44:00 [facility] ([facility] Hospitalist Progress Note REPORT#:[id number] REPORT STATUS: Signed DATE:09/18/22 TIME: 1144 PATIENT: BHUMIKA JONES UNIT #: [id number] ROOM/BED: [place] [address] : [birth year] AGE: 47 SEX: F ATTEND: [...] patient this morning with the help of criminal intelligence analyst and she said that he lives with [...] refill, normal range of motion, no edema Neuro/INSPECTOR RAW QUARTZ: altered mental status, alert Diagnosis, Assessment Plan [...] afternoon if remains stable at 1147 RPT #:[id number] END OF [id number] 01:06:00 [facility] ([facility]) Hospitalist History Physical REPORT#:[id number] REPORT STATUS: Signed DATE:09/18/22 TIME: 105 PATIENT: BHUMIKA JONES UNIT #: [id number] ROOM/BED: [place] [address] : [birth year] AGE: 47 SEX: F ATTEND: [...] - 8.0 pH UNITS) 6.5 Ur Specific [place] (1.001 - 1.035 SG) 1.013 Urine Protein [...] (NONE - SQepi /UL) RARE >0 09/17 151 Chemistry Serum , Qual (NEG SCREEN) Negative [...] rhythm Respiratory: decreased breath sounds Abdomen: soft Neuro/INSPECTOR RAW QUARTZ: altered mental status, alert Diagnosis, Assessment Plan [...] management by incoming thereafter at 0110 RPT #:[id number] END OF [id number] 14:34:00 [facility] ([facility]) EMERGENCY PROVIDER REPORT REPORT#:[id number] REPORT STATUS: Signed DATE:09/17/22 TIME: 1434 PATIENT: BHUMIKA JONES UNIT #: [id number] ROOM/BED: 267-1 AGE: 47 SEX: F PCP PHYS: No Primary or Family Physician SERVICE AUTHOR: Valentina Samayoa MD * ALL edits or amendments must be made on the electronic/computer document * HPI-General Illness Free Text HPI Notes Free Text HPI Notes 47-year-old female presents after possible seizure episode at [facility], will assessment patient is not fully oriented, and cannot provide history of the events of today when asked multiple times. Additional history limited as the patient is tearful and not fully oriented. I spoke to the patient's sister Lewis Luis, phone #[phone] by phone, who reports the patient has been missing from home for 8 days. Reports when the patient is medically cleared they can come get the patient. Patient reportedly initially without medications at the [facility] PMH: Seizures, schizophrenia. General Initial Greet [...] Prov: 09/13/22 DC: 09/14/22 1500 carpentry teacher correction DIVALPROEX (GINA CALLES) 1,000 MG PO DAILY DIVALPROEX (GINA CALLES) 1,000 MG PO DAILY #60 TABS Prov: 09/13/22 DC: 09/14/22 1459 carpentry teacher correction Reported Medications DIVALPROEX ER (DEPAKOTE ER) [...] - 8.0 pH UNITS) 6.5 Ur Specific [place] (1.001 - 1.035 SG) 1.013 Urine Protein [...] )( Accepted Date 09/17/22 at 1114 RPT #:[id number] END OF [id number] 00:19:00 [facility] ([facility]) EMERGENCY PROVIDER REPORT REPORT#:[id number] REPORT STATUS: Signed DATE:09/17/22 TIME: 0019 PATIENT: BHUMIKA JONES UNIT #: [id number] ROOM/BED: AGE: 47 SEX: F PCP PHYS: No Primary or Family Physician SERVICE AUTHOR: Asim Jack MD * ALL edits or amendments must be made on the electronic/computer document * HPI-General Illness General Initial Greet Date/Time 09/16/22 6890 Presentation Chief Complaint Anxiety, Not feeling well Free Text HPI Notes Free Text HPI Notes [facility] after increasing anxiety and concern for possible seizure activity. She was recently admitted here at [facility] and worked up for possible seizures. [...] Prov: 09/13/22 DC: 09/14/22 [address] (GINA CALLES) 1,000 MG PO DAILY DIVALPROEX DR (GINA CALLES) 1,000 MG PO DAILY #60 TABS Prov: 09/13/22 DC: 09/14/22 1459 carpentry teacher correction Reported Medications DIVALPROEX ER (DEPAKOTE ER) [...] Temp 36.9 09/18 15 Pulse 67 09/17 001 Resp 16 09/18 15 Review of Vital [...] [Embedded Image Not Available] Laboratory Tests: 09/16 233 Chemistry Sodium (133 - [...] % (Auto) (14.1 - 45.4 %) 29.6 [place] % (Auto) (2.5 - 11.7 %) 10.8 Eos % (Auto) (0.0 - 6.2 %) 2.9 Baso % (Auto) (0.0 - 2.1 %) 0.7 Gran # (2.0 - 13.7 k/mm3) 3.12 Lymph # (Auto) (0.6 - 3.8 K/mm3) 1.65 [place] # (Auto) (0.11 - 0.59 K/mm3) 0.60 [...] RADIOLOGY - XR CHEST 1 V 09/16 9885 Report Impression - Status: SIGNED Entered: 09/16/2022 9027 IMPRESSION: No acute cardiopulmonary disease. Impression By: [...] for discharge. Patient urged to follow-up with [facility] in the next 2 to 3 [...] 15 Temp 36.9 09/18 15 Pulse 67 03/27 0016 Resp 16 09/17 0016 All vital [...] Instructions Please follow-up with [facility], and neurology. Return if any confusion, headache, stiff neck, fever, vomiting, or any other new concerns. Please take all your medications as instructed Referrals Provider Group: [facility] Follow-Up: 2-3 Days Provider Referral: Nelia Parker MD Follow-Up: 2-3 Days Address: [address] [place] [address] [address] [place] [address] Resource Referral: [facility] Follow-Up: 2-3 Days Address: [address] [place] [address] at 0140 RPT #:[id number] END OF [id number] 12:06:00 [facility] ([facility]) Electroencephalogram-EEG REPORT#:[id number] REPORT STATUS: Signed DATE:09/15/22 TIME: 1206 PATIENT: BHUMIKA JONES UNIT #: [id number] ROOM/BED: [address] : [birth year] AGE: 47 SEX: F [...] or electrographic seizures recorded. at 1209 RPT #:[id number] END OF [id number] 12:00:00 [facility] Hospitalist Discharge Summary REPORT#:[id number] REPORT STATUS: Signed DATE:09/15/22 TIME: 1200 PATIENT: BHUMIKA JONES UNIT #: [id number] ROOM[facility]BED: [facility] : 73 AGE: 47 SEX: F ATTEND: [...] evaluated for possible seizure episode. She is Mauritanian-speaking patient only in control room tender was used. Patient denies to have any [...] initial diagnosis and related differentials with the patient/customer care specialist including RN. All concerns and questions are answered to the best of my abilities based on the available data.I have initiated the plan of care based on preliminary diagnosis, requested appopriate consultations with labs/imagings. Patient/customer care specialist verbalizes understanding of the plan of [...] timeframe: In 1-2 weeks at 1202 RPT #:[id number] END OF [id number] 16:56:00 [facility] ([facility]) Neurology Consultation Note REPORT#:[id number] REPORT STATUS: Signed DATE:09/14/22 TIME: 1655 PATIENT: BHUMIKA JONES UNIT #: [id number] ROOM/BED: [address] : [birth year] AGE: 47 SEX: F [...] evaluated for possible seizure episode. She is Mauritanian-speaking patient only in control room tender was used. Patient denies to have any [...] (SODIUM CHLORIDE 0.9% 1000 ML) 1,000 ML .[id number] IV Trazodone HCl (DESYREL) 50 MG BEDTIME PRN PRN PO Sodium Chloride (SODIUM CHLORIDE 0.9% 1000 ML) 1,000 ML .[id number] IV Carbamazepine (TEGretol) 400 MG BID PO Divalproex Sodium (DEPAKOTE DR) 1,000 MG BID PO (DC) Acetaminophen (TYLENOL) 650 MG Q6H PRN PRN PO Ondansetron HCl (ZOFRAN) 4 MG Q4H PRN PRN IV Ceftriaxone Sodium (ROCEPHIN) 1 GM Q24H IV (CAN) Lactated Ringer's (LACTATED RINGERS) 1,000 ML .[id number] IV Ceftriaxone Sodium (ROCEPHIN) 1 GM X1ED [...] % (Auto) (14.1 - 45.4 %) 33.6 [place] % (Auto) (2.5 - 11.7 %) 13.4 H Eos % (Auto) (0.0 - 6.2 %) 7.4 H Baso % (Auto) (0.0 - 2.1 %) 0.9 Gran # (2.0 - 13.7 k/mm3) 2.61 Lymph # (Auto) (0.6 - 3.8 K/mm3) 1.96 [place] # (Auto) (0.11 - 0.59 K/mm3) 0.78 [...] - 8.0 pH UNITS) 6.0 Ur Specific [place] (1.001 - 1.035 SG) 1.032 Urine Protein [...] acute intracranial abnormality Impression By: [email or web address] - lGadis Andrew MD Diagnosis, Assessment Plan Free Text [...] deferred to primary team. at 1707 RPT #:[id number] END OF [id number] 14:55:00 [facility] ([facility]) Hospitalist History Physical REPORT#:[id number] REPORT STATUS: Signed DATE:09/14/22 TIME: 1454 PATIENT: BHUMIKA JONES UNIT #: [id number] ROOM/BED: B250-W : 74 AGE: 47 SEX: [...] evaluated for possible seizure episode. She is [place]ian-speaking patient only in control room tender was used. Patient denies to have any [...] % (Auto) (14.1 - 45.4 %) 33.6 [place] % (Auto) (2.5 - 11.7 %) 13.4 H Eos % (Auto) (0.0 - 6.2 %) 7.4 H Baso % (Auto) (0.0 - 2.1 %) 0.9 Gran # (2.0 - 13.7 k/mm3) 2.61 Lymph # (Auto) (0.6 - 3.8 K/mm3) 1.96 [place] # (Auto) (0.11 - 0.59 K/mm3) 0.78 [...] - 8.0 pH UNITS) 6.0 Ur Specific [place] (1.001 - 1.035 SG) 1.032 Urine Protein [...] Report Impression - Status: SIGNED Entered: 09/14/2022 0208 IMPRESSION: No radiographic evidence of acute cardiopulmonary process. Impression By: NadiyaMKMIvette - Igor Almonte MD CAT SCAN - [...] evaluated for possible seizure episode. She is [place]ian-speaking patient only in control room tender was used. Patient denies to have any [...] initial diagnosis and related differentials with the patient/customer care specialist including RN. All concerns and questions are answered to the best of my abilities based on the available data.I have initiated the plan of care based on preliminary diagnosis, requested appopriate consultations with labs/imagings. Patient/customer care specialist verbalizes understanding of the plan of care. at 1501 RPT #:[id number] END OF [id number] 04:21:00 [facility] ([facility]) EMERGENCY PROVIDER REPORT REPORT#:[id number] REPORT STATUS: Signed DATE:09/14/22 TIME: 420 PATIENT: BHUMIKA JONES UNIT #: [id number] ROOM/BED: [place] [address] AGE: 47 SEX: F PCP PHYS: No [...] told she needs to see a social science instructor but is unsure how to arrange that. 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, [employer] Review of Systems ROS Statements All systems [...] % (Auto) (14.1 - 45.4 %) 33.6 [place] % (Auto) (2.5 - 11.7 %) 13.4 H Eos % (Auto) (0.0 - 6.2 %) 7.4 H Baso % (Auto) (0.0 - 2.1 %) 0.9 Gran # (2.0 - 13.7 k/mm3) 2.61 Lymph # (Auto) (0.6 - 3.8 K/mm3) 1.96 [place] # (Auto) (0.11 - 0.59 K/mm3) 0.78 [...] - 8.0 pH UNITS) 6.0 Ur Specific [place] (1.001 - 1.035 SG) 1.032 Urine Protein [...] evidence of acute cardiopulmonary process. Impression By: Ana - Igor Almonte MD Re-Evaluation [...] 09/14 0312 0452 Patient Discharge Departure Vital Signs/Condition Vital Signs First Documented: Result Date Time Pulse Ox 100 09/13 2026 B/P 157/93 09/13 2026 B/P Mean 114 09/13 2026 O2 Delivery Room air 09/13 2026 Temp 36.8 09/13 2026 Pulse 82 09/13 2026 Resp 17 09/13 2026 Last Documented: Result Date Time Pulse Ox 95 09/143 B/P 133/86 09/14 422 B/P Mean 101.4 [...] is the patient's second visit here at [facility] in the past 24 hours. She [...] of care. at 0449 at 0540 RPT #:[id number] END OF [id number] 20:34:00 [facility] ([facility]) EMERGENCY PROVIDER REPORT REPORT#:[id number] REPORT STATUS: Signed DATE:09/13/22 TIME: 2033 PATIENT: BHUMIKA JONES UNIT #: [id number] ROOM/BED: B.250-W AGE: 47 SEX: F PCP [...] (RisperDAL) 3 MG PO DAILY at 1707 [facility] #:[id number] END OF [id number] 09:58:00 [facility] ([facility]) EMERGENCY PROVIDER REPORT REPORT#:[id number] REPORT STATUS: Signed DATE:09/13/22 TIME: 957 PATIENT: BHUMIKA JONES UNIT #: [id number] ROOM/BED: AGE: 47 SEX: F PCP PHYS: [...] to arrival. General Initial Greet Date/Time 09/13/22 09 Presentation Chief Complaint Chest pain Hx Obtained [...] Ox 97 09/13 0936 B/P 136/80 09/13 09 B/P Mean 98 09/14 935 O2 Delivery Room air 09/14 935 Temp 97.9 09/14 935 Pulse 88 09/14 935 Resp 14 09/14 935 Last Documented: Result Date Time Pulse Ox 97 09/13 0936 B/P 136/80 09/13 0936 B/P Mean 98 09/13 09 O2 Delivery Room air 09/14 935 Temp 97.9 09/14 935 Pulse 88 09/14 935 Resp 14 09/13 09 Review of Vital Signs Reviewed Physical Exam [...] - 8.0 pH UNITS) 6.0 Ur Specific [place] (1.001 - 1.035 SG) 1.024 Urine Protein [...] % (Auto) (14.1 - 45.4 %) 34.0 [place] % (Auto) (2.5 - 11.7 %) 10.1 Eos % (Auto) (0.0 - 6.2 %) 2.7 Baso % (Auto) (0.0 - 2.1 %) 0.7 Gran # (2.0 - 13.7 k/mm3) 3.04 Lymph # (Auto) (0.6 - 3.8 K/mm3) 1.98 [place] # (Auto) (0.11 - 0.59 K/mm3) 0.59 Eos # (Auto) (0.0 - 0.4 K/mm3) 0.16 Baso # (Auto) (0.0 - 0.1 K/mm3) 0.04 Immature Gran % (0.0 - 2.0 %) 0.3 Nucleated RBC % (0.0 - 1.0 /100WBC%) 0.0 Nucleated RBCs # (0.0 - 0.05 K/mm3) 0.00 Point of Care Testing Pulse Oximetry Pulse Ox % 98 On: Room air Interpretation Interpreted by nd Time 09 ECG #1 Interpretation ECG Documented in MUSE [...] Room air 09/14 935 Temp 97.9 09/13 0936 Pulse 88 09/13 0936 Resp 14 09/13 0836 Last Documented: Result Date Time Pulse Ox 97 09/13 0936 B/P 136/80 09/13 0936 B/P Mean 98 09/13 0936 O2 Delivery Room air 09/14 935 Temp 97.9 09/13 0936 Pulse 88 09/13 [...] 3 MG PO BEDTIME #30 TABS DIVALPROEX (DEPAKOTE ) 1,000 MG PO DAILY [...] a call to 911. at 1327 RPT #:[id number] END OF REPORTHCACR
--- NOTE | 2024-04-27 17:08 | EDPHYS ---
Physician Documentation [facility] Name: Davida Hodges Age: 49 yrs Sex: Female : 1975 Arrival Date: 04/27/2024 Time: 16:17 Bed Waiting Private MD: ED Physician Pascual Lundy HPI: 04/27 17:23 This 49 yrs old Female presents to ER via EMS with complaints of Anxiety. sb4 17:23 Patient called EMS for assistance. They initially arrived and she would not provide a sb4 complaint. They spent an hour at her home and eventually she stated that she was having seizures and was out of her seizure medication. She also stated that her mouth was bleeding from biting the inside of it. She is refusing to speak upon arrival. ROS: 17:23 Unable to obtain ROS due to patient being uncooperative, sb4 Exam: 17:23 Constitutional: This is a well developed, well nourished patient who is awake, alert, sb4 and in no acute distress. Head/Face: Normocephalic, atraumatic. Eyes: Extra-ocular motions intact. Periorbital areas with no swelling, redness, or edema. ENT: Mucous membranes moist. Skin: Warm, dry with normal turgor. Normal color with no rashes, no lesions, and no evidence of cellulitis. 17:23 Neuro: Motor: moves all fours, seizure activity, is not displayed by the patient, MDM: 16:37 Medical Screening Exam initiated sb4 17:24 Data reviewed: vital signs, nurses notes, EMS record, and as a result, I will discharge sb4 patient. Counseling: I had a detailed discussion with the patient and/or guardian regarding the historical points, exam findings, and any diagnostic results supporting the discharge/admit diagnosis, to return to the emergency department if symptoms worsen or persist or if there are any questions or concerns that arise at home. ED course: Patient left after my assessment prior to further workup. Administered Medications: No medications were administered Disposition: 17:24 Chart complete. sb4 Disposition Summary: 04/27/24 17:08 Discharge Ordered Notes: Location: Home sb4 Problem: new sb4 Symptoms: have improved sb4 Condition: Stable sb4 Diagnosis - Other seizures sb4 Followup: sb4 - With: Emergency Department - When: As needed - Reason: Trouble breathing, Worsening of condition Discharge Instructions: - Discharge Summary Sheet sb4 - Seizure, Adult sb4 Forms: - Medication Reconciliation Form sb4 - Antibiotic Education sb4 - Prescription Opioid Use sb4 - Patient Portal Instructions sb4 - Leadership Thank You Letter sb4 Signatures: Mignon Bal PA-C PA-C sbIvette
--- NOTE | 2024-04-27 17:08 | ER ---
Nurse's Notes [facility] Name: Davida Hodges Age: 49 yrs Sex: Female : 1975 Arrival Date: 04/27/2024 Time: 16:17 Bed Waiting Private MD: Diagnosis: Other seizures Presentation: 04/27 16:37 Chief complaint: EMS states: "she was refusing to speak but we did find out that she is aa5 having anxiety and is possibly out of her seizure medications". 16:37 Method Of Arrival: EMS: [facility] aa5 ED Course: 16:22 Patient arrived in ED. aa5 16:23 [facility] Bal [facility] sb4 16:23 Pascual Lundy MD is Attending Physician. sb4 16:43 Patient's name was called from ER lobby. No response. aa5 17:00 Patient's name was called from ER lobby. No response. aa5 17:10 Patient's name was called from ER lobby. No response. Unable to locate patient. Will aa5 disposition as left without being seen by a provider. Administered Medications: No medications were administered Outcome: 17:08 Discharge ordered by . sb4 17:10 Eloped from waiting room, before triage aa5 17:24 Patient left the ED. aa5 Signatures: Maggy Beasley, RN RN aa5 Mignon Bal PA-C PA-C sb4
== END 2024-04-27 17:24 | disposition home or self-care (01) ==
LOC: ER 16:17
DX: G40.89 Other seizures (principal)
CPT/HCPCS: 99282

== ENCOUNTER 2024-05-15 17:16 | Emergency (ER) | payer SELFPAY ==
--- OUTSIDE RECORDS SUMMARY | 2024-05-15 17:25 | XMS REPORT | Continuity of Care Document ---
Author Name Unknown Address [address] [facility] [address] [place] [address] [facility] Address [address] [facility] [address] [place] [address] Care Team Providers Care Bss Solution Architect Name Role Phone PCP, NO Primary Care Physician Unavailab LAWRENCE Weston Attending Clinician Unavailable ARLEN LAGUNAS Attending Clinician Unavailable JUAN MIGUEL PRICE Attending Clinician Unavailable MELVINA SHEPHERD Attending Clinician Tommy Phelan MD, Indio Perdue Attending Clinician [phone] INDIO PHELAN Attending Clinician Unavail able INDIO PHELAN Attending Clinician Unavail able Doctor Unassigned, [place] Attending Clinician U navailable Neurology Attending Clinician Unavailable DR JESS PAIGE Attending Clinician Unavailable Heri Snow MD Attending Clinician [phone] Denise MELTON, Madhavi Mota Attending Clinician Zari Marly Rodríguez Attending Clinician Unavailable Asim Jack Attending Clinician Unavailable Vladimir Forbes Attending Clinician Unavailable Brad Woodall Attending Clinician Unavaila Russel Angelo Attending Clinician Unavailermelinda Morfin MD, Lisa Schmitz Attending Clinician [phone] Sandrita Key MD Attending Clinician [phone] SANDRITA KEY Attending Clinician Unavailable TAYO BOYD Attending Clinician Unavailable Tayo Boyd MD Attending Clinician [phone] JAVED FRANK Attending Clinician Unavailable Javed Chavez Attending Clinician [phone] DEON NUNEZ Attending Clinician Unavailable Deon Nunez DO Attending Clinician [phone] Kp Dorado Attending Clinician [phone] Kp GILLILAND Attending Clinician Unavailable Kristin Howell Attending Clinician [phone] KRISTIN MILLER Attending Clinician Unavailable Floridalma Evans MD Attending Clinician [phone] FLORIDALMA EVANS Attending Clinician Unavailable LISA MORFIN Attending Clinician Unavailermelinda see Unknown, Attending Attending Clinician Unavailab HENRY Machuca Attending Clinician Unavailable Henry Owen MD Attending Clinician [phone] DEBBIE PAYTON Attending Clinician Unavailab Debbie Hernandez DO Attending Clinician [phone] Le Ramirez NP Attending Clinician [phone] LAWRENCE MEJIAS Admitting Clinician Unavailable KAYLA [...] Number Effective Date Expirati on Date Source [facility] [id number] 1000 [id number] 2022 00:00:00 MEDICAID ALIEN PENDING PENDING 2021 [...] different from the original. ICD10 Diagnosis Term Director Product Development Utility General acute hospital Asthma Asthma Disease Active 08-01 00:00: 00 Overview: Formattin g of this note might be different from the original. ICD10 Diagnosis Term Director Product Development Utility [facility] acute hospital Mental disorder Mental disorder Disease Active 08-01 00:00: 00 [facility] acute hospital Encounter for routine gynecologi gracie examinatio n Encounter for routine gynecologi gracie examinatio n Disease Active 08-01 00:00: 00 Overview: Formattin g of this note might be different from the original. ICD10 Diagnosis Term Director Product Development Utility [facility] acute hospital Morbid obesity Morbid [...] Allergie s NA Active 11-23 07:59: 00 [facility] No Known Allergie s NA Active 11-22 21:17: 11 [facility] No Known Allergie s NA Active 11-22 19:46: 36 [facility] No Known Allergie s DA Active U 09-13 00:00: 00 [facility] carbamaz epine DA Active U UNKNOWN 09-13 00:00: 00 [facility] carbamaz epine DA Active U UNKNOWN 09-10 00:00: 00 [facility] No Known Drug Allergie s DA Active [facility] NO KNOWN ALLERGIE S Drug Class Active [facility] acute hospital Social History Social Habit Start Date Stop Date Quantity Comments Source [facility] Future intention [facility]orted [facility] Alcohol intake 2023-07-23 00:00:00 2023-07-23 00:00:00 Current non-drinker of alcohol (finding) [facility] History of Social function 2023-07-23 00:00:00 2023-07-23 00:00:00 [facility] Exposure to SARS-CoV-2 (event) 2022-09-14 00:00:00 2022-09-24 12:30:00 Not sure [facility] Tobacco use and exposure 2014-07-05 00:00:00 2014-07-05 00:00:00 Smokeless tobacco non-user [facility] Sex Assigned At 1975 00:00:00 1975 00:00:00 [facility] Smoking Status Start Date Stop Date [...] ML SOLN|dose: 2.0 mg|route:| frequency: ONE TIME [facility] diphenhydrA MINE INJ (Benadryl) 50 MG/ML SOLN diphenhydrA MINE INJ (Benadryl) 50 MG/ML SOLN 11-22 23:33: 00 11-22 23:33 :00 No 50mg medication :diphenhyd rAMINE INJ (Benadryl) 50 MG/ML SOLN|dose: 50.0 mg|route:| frequency: ONE TIME [facility] LORazepam INJ 2 MG/1 ML SOLN LORazepam INJ 2 MG/1 ML SOLN 11-22 23:33: 00 11-22 23:33 :00 No 2mg medication :LORazepam INJ 2 MG/1 ML SOLN|dose: 2.0 mg|route:| frequency: ONE TIME [facility] ([facility]) ziprasidone INJ 20 MG SOLR ziprasidone INJ 20 MG SOLR 11-22 20:05: 00 11-22 20:05 :00 No 10mg medication :ziprasido ne INJ 20 MG SOLR|dose: 10.0 mg|route:I NTRAMUSCUL AR|frequen cy:ONE TIME [facility] ([facility]) sterile water for injection SOLN sterile water for injection SOLN 11-22 20:05: 00 11-22 20:05 :00 No 10mL medication :sterile water for injection SOLN|dose: 10.0 mL|route:| frequency: ONE TIME [facility] ([facility]) levothyroxi ne 50 mcg tablet 10-12 [...] 1 mg tablet 07-23 00:00: 00 Yes [id number] 1mg Take 1 tablet by mouth at [...] 1 TABLET DAILY. 2022-06 00:00: 00 Yes [id number] Henry Contreras TAKE 1 TABLET EVERY 6 HOURS NEEDED FOR DIZZINESS. 2022-06 00:00: 00 11-01 00:00 :00 No 25 Henry Contreras TAKE 1 TABLET BY MOUTH DAILY 2022-06 00:00: 00 11-01 00:00 :00 No 2 Henry Contreras TAKE 1 TABLET DAILY. 03-04 00:00: 00 11-01 00:00 :00 No [id number] Henry Contreras TAKE 1-2 TABS EVERY 8 [...] Administer over 15 Minutes, 100 mL [facility] LORazepam (ATIVAN) injection 1 mg 09-10 02:15: 00 09-10 03:04 :00 No 1mg 1 mg, Slow IV Push, ONCE, 1 dose, On 09/09/22 at 2115, STAT [facility] acute hospital hydrOXYzine 25 mg tablet 09-09 00:00: 00 Yes [id number] 25mg Take 1 tablet by mouth every 6 (six) hours. [facility] acute hospital levETIRAcet am (KEPPRA) 500 mg tablet 09-09 00:00: 00 Yes [id number] 500mg Take 1 tablet by mouth 2 (two) times daily. [facility] acute hospital acetaminoph en (TYLENOL) tablet 650 mg 09-07 00:45: 00 09-07 02:10 :00 No 650mg 650 mg, Oral, ONCE, 1 dose, On Diana 09/06/22 at 1945, [facility] TAKE 1 TABLET BY MOUTH IN THE MORNING AND 1 TABLET AT BEDTIME 2021-06 00:00: 00 Yes Henry Contreras TAKE 1 TABLET BY MOUTH IN THE MORNING AND 1 AT BEDTIME 2021-06 006 00:00: 00 Yes Henry Contreras acetaminoph en (TYLENOL) tablet 1,000 mg 10-02 22:15: 00 10-02 23:27 :00 No 1000mg 1,000 mg, Oral, ONCE, 1 dose, On Sat10/02/21 at 1715, [facility] ibuprofen (IBU) tablet 600 mg 10-02 22:15: 00 10-02 23:27 :00 No 600mg 600 mg, Oral, ONCE, 1 dose, On Sat10/02/21 at 1715, [facility] hydroxyzine HCl 25 mg tablet 2020-06 00:00: 00 Yes 1mg Henryjoseph Contreras traMADoL 50 mg tablet 2020-06 00:00: 00 Yes [id number] 50mg Take 1 tablet by mouth every 6 (six) hours as needed for Pain (scale 7-10). Indication s: acute pain [facility] acute hospital naproxen sodium (ANAPROX DS) 550 mg tablet 2020-06 00:00: 00 Yes [id number] 550mg Take 1 tablet by mouth 2 (two) times daily with meals. [facility] acute hospital ibuprofen 600 mg tablet 2020-06 00:00: 00 Yes 1mg Henry Contreras amoxicillin -clavulanat e 875-125 mg per tablet 08-13 00:00: 00 Yes [id number] 1{tbl} Take 1 tablet by mouth every 12 (twelve) hours. [facility] acute hospital clindamycin 300 mg capsule 08-13 00:00: 08-23 05:59 :00 No [id number] 300mg Take 1 capsule by mouth 4 (four) times daily for 10 days. [facility] acute hospital methocarbam ol (ROBAXIN) tablet 1,000 mg 07-23 00:30: 00 07-22 23:39 :00 No 1000mg 1,000 mg, Oral, ONCE, 1 dose, Sat07/22/19 at 1830, Routine [facility] acute hospital Keflex 500 mg capsule 07-23 00:00: 00 Yes 1mg Henry Contreras Bromfed DM 2 mg-30 mg-10 mg/5 mL oral syrup 07-23 00:00: 00 Yes 5mg/5 mL Henry Contreras ketorolac (TORADOL) injection 30 mg 07-23 00:00: 07-22 23:00 :00 No 30mg 30 mg, Intramuscu lar, ONCE, 1 dose, Sat07/22/19 at 1800, Routine
[employer] agent team member approving Restricted medication : LISA [...] hospital ketorolac 10 mg tablet 07-13 00:00: 07-19 05:59 :00 No [id number] 10mg Take 1 tablet by mouth every 8 (eight) hours for 5 days. [facility] acute hospital mupirocin 2 % topical ointment 07-10 00:00: 00 Yes 1% Henry Contreras ibuprofen 800 mg tablet 07-10 00:00: 00 Yes 1mg Henry Contreras Keflex 500 mg capsule 07-10 00:00: 00 Yes 1mg Henry Contreras cephALEXin (KEFLEX) 500 mg capsule 07-04 00:00: 00 Yes [id number] 500mg Take 1 capsule by mouth 4 (four) times daily. [facility] acute hospital traMADol 50 mg tablet 07-04 00:00: 00 05-05 00:00 :00 No [id number] 50mg Take 1 tablet by mouth every 6 (six) hours as needed for Pain (scale 7-10). [facility] acute hospital bacitracin 500 unit/gram ointment 07-04 00:00: 00 07-15 05:59 :00 No [id number] Apply to affected area(s) 2 (two) times daily for 10 days. [facility] acute hospital traMADol 50 mg tablet 06-30 00:00: 00 05-05 00:00 :00 No [id number] 50mg Take 1 tablet by mouth every [...] martin Body temperature 2023-11-24 19:00:00 98.1 [degF] [facility]) Diastolic blood pressure 2023-11-24 19:00:00 69 mm[Hg] [facility] ([place]) Heart rate 2023-11-24 19:00:00 70 /min [facility]) Oxygen saturation in Arterial blood by Pulse oximetry 2023-11-24 19:00:00 97 /min [facility]) Respiratory rate 2023-11-24 19:00:00 16 /min [facility]) Systolic blood pressure 2023-11-24 19:00:00 127 mm[Hg] [facility] ([place]) Diastolic blood pressure 2023-11-23 23:30:00 78 mm[Hg] [facility]) Heart rate 2023-11-23 23:30:00 74 /min [facility]) Oxygen saturation in Arterial blood by Pulse oximetry 2023-11-23 23:30:00 97 /min [facility] ([place] Respiratory rate 2023-11-23 23:30:00 16 /min [facility]) Systolic blood pressure 2023-11-23 23:30:00 134 mm[Hg] [facility] Body temperature 2023-11-23 19:30:00 98.5 [degF] [facility]) Body height 2023-07-23 20:19:00 152.4 cm [facility] Body weight 2023-07-23 20:19:00 77.837 kg [facility] BMI 2023-07-23 20:19:00 33.51 kg/m2 [facility] Height 2022-11-04 14:04:00 149.86 CM Weight 2022-11-04 14:04:00 73.02 KG Systolic blood pressure 2022-09-24 17:32:00 130 mm[Hg] [facility] Diastolic blood pressure 2022-09-24 17:32:00 85 mm[Hg] [facility] Heart rate 2022-09-24 17:32:00 64 /min [facility] Body temperature 2022-09-24 17:32:00 36.83 Oma [facility] Respiratory rate 2022-09-24 17:32:00 18 /min [facility] Body weight 2022-09-24 17:32:00 74.844 kg [facility] BMI 2022-09-24 17:32:00 33.33 kg/m2 [facility] Oxygen saturation in Arterial blood by Pulse oximetry 2022-09-24 17:32:00 99 /min [facility] Systolic blood pressure 2022-09-10 23:55:00 111 mm[Hg] [facility] Diastolic blood pressure 2022-09-10 23:55:00 84 mm[Hg] [facility] Heart rate 2022-09-10 23:55:00 105 /min [facility] Body temperature 2022-09-10 23:55:00 37.33 Oma [facility] Respiratory rate 2022-09-10 23:55:00 19 /min [facility] Systolic blood pressure 2022-09-10 01:44:00 126 mm[Hg] [facility] Diastolic blood pressure 2022-09-10 01:44:00 81 mm[Hg] [facility] Heart rate 2022-09-10 01:44:00 78 /min [facility] Body temperature 2022-09-10 01:44:00 36.56 Oma [facility] Respiratory rate 2022-09-10 01:44:00 16 /min [facility] Body weight 2022-09-10 01:44:00 79.379 kg [facility] BMI 2022-09-10 01:44:00 35.35 kg/m2 [facility] Oxygen saturation in Arterial blood by Pulse oximetry 2022-09-10 01:44:00 100 /min [facility] Systolic blood pressure 2022-09-07 05:37:00 119 mm[Hg] [facility] Diastolic blood pressure 2022-09-07 05:37:00 67 mm[Hg] [facility] Heart rate 2022-09-07 05:37:00 79 /min [facility] Respiratory rate 2022-09-07 05:37:00 16 /min [facility] Oxygen saturation in Arterial blood by Pulse oximetry 2022-09-07 05:37:00 98 /min [facility] Body temperature 2022-09-06 23:05:00 36.78 Oma [facility] Body weight 2022-09-06 23:05:00 79.379 kg [facility] BMI 2022-09-06 23:05:00 35.35 kg/m2 [facility] Systolic blood pressure 2021-10-02 20:55:00 111 mm[Hg] [facility] Diastolic blood pressure 2021-10-02 20:55:00 70 mm[Hg] [facility] Heart rate 2021-10-02 20:55:00 79 /min [facility] Body temperature 2021-10-02 20:55:00 36.61 Oma [facility] Respiratory rate 2021-10-02 20:55:00 18 /min [facility] Body height 2021-10-02 20:55:00 149.9 cm [facility] Body weight 2021-10-02 20:55:00 79.379 kg [facility] BMI 2021-10-02 20:55:00 35.35 kg/m2 [facility] Oxygen saturation in Arterial blood by Pulse oximetry 2021-10-02 20:55:00 100 /min [facility] Systolic blood pressure 2021-05-05 19:20:00 102 mm[Hg] [facility] Diastolic blood pressure 2021-05-05 19:20:00 48 mm[Hg] [facility] Heart rate 2021-05-05 19:20:00 68 /min [facility] Body temperature 2021-05-05 19:20:00 36.94 Oma [facility] Respiratory rate 2021-05-05 19:20:00 18 /min [facility] Body weight 2021-05-05 19:20:00 79.379 kg [facility] BMI 2021-05-05 19:20:00 35.35 kg/m2 [facility] Oxygen saturation in Arterial blood by Pulse oximetry 2021-05-05 19:20:00 99 /min [facility] Systolic blood pressure 2019-12-15 22:12:00 138 mm[Hg] [facility] Diastolic blood pressure 2019-12-15 22:12:00 100 mm[Hg] [facility] Heart rate 2019-12-15 22:12:00 77 /min [facility] Body temperature 2019-12-15 22:12:00 37.06 Oma [facility] Respiratory rate 2019-12-15 22:12:00 20 /min [facility] Body weight 2019-12-15 22:12:00 79.379 kg [facility] BMI 2019-12-15 22:12:00 35.35 kg/m2 [facility] Oxygen saturation in Arterial blood by Pulse oximetry 2019-12-15 22:12:00 100 /min [facility] Systolic blood pressure 2019-12-15 22:12:00 138 mm[Hg] [facility] Diastolic blood pressure 2019-12-15 22:12:00 100 mm[Hg] [facility] Heart rate 2019-12-15 22:12:00 77 /min [facility] Body temperature 2019-12-15 22:12:00 37.06 Oma [facility] Respiratory rate 2019-12-15 22:12:00 20 /min [facility] Body weight 2019-12-15 22:12:00 79.379 kg [facility] BMI 2019-12-15 22:12:00 35.35 kg/m2 [facility] Oxygen saturation in Arterial blood by Pulse oximetry 2019-12-15 22:12:00 100 /min [facility] Respiratory rate 2019-10-25 23:43:00 18 /min [facility] Body weight 2019-10-25 23:43:00 83.915 kg [facility] BMI 2019-10-25 23:43:00 37.37 kg/m2 [facility] Respiratory rate 2019-10-25 23:43:00 18 /min [facility] Body weight 2019-10-25 23:43:00 83.915 kg [facility] BMI 2019-10-25 23:43:00 37.37 kg/m2 [facility] Systolic blood pressure 2019-08-13 19:25:00 123 mm[Hg] [facility] Diastolic blood pressure 2019-08-13 19:25:00 88 mm[Hg] [facility] Heart rate 2019-08-13 19:25:00 78 /min [facility] Body temperature 2019-08-13 19:25:00 36.56 Oma [facility] Respiratory rate 2019-08-13 19:25:00 18 /min [facility] Body height 2019-08-13 19:25:00 149.9 cm [facility] Body weight 2019-08-13 19:25:00 90.719 kg [facility] BMI 2019-08-13 19:25:00 40.40 kg/m2 [facility] Oxygen saturation in Arterial blood by Pulse oximetry 2019-08-13 19:25:00 100 /min [facility] Systolic blood pressure 2019-08-13 19:25:00 123 mm[Hg] [facility] Diastolic blood pressure 2019-08-13 19:25:00 88 mm[Hg] [facility] Heart rate 2019-08-13 19:25:00 78 /min [facility] Body temperature 2019-08-13 19:25:00 36.56 Oma [facility] Respiratory rate 2019-08-13 19:25:00 18 /min [facility] Body height 2019-08-13 19:25:00 149.9 cm [facility] weight 2019-08-13 19:25:00 90.719 kg [facility] BMI 2019-08-13 19:25:00 40.40 kg/m2 [facility] Oxygen saturation in Arterial blood by Pulse oximetry 2019-08-13 19:25:00 100 /min [facility] Oxygen saturation in Arterial blood by Pulse oximetry 2019-07-23 00:20:15 100 /min [facility] Systolic blood pressure 2019-07-23 00:20:15 120 mm[Hg] [facility] Diastolic blood pressure 2019-07-23 00:20:15 74 mm[Hg] [facility] Heart rate 2019-07-23 00:20:15 82 /min [facility] Respiratory rate 2019-07-23 00:20:15 19 /min [facility] Body temperature 2019-07-22 19:41:00 36.33 Oma [facility] Body weight 2019-07-22 19:39:00 90.719 kg [facility] BMI 2019-07-22 19:39:00 39.06 kg/m2 [facility] Oxygen saturation in Arterial blood by Pulse oximetry 2019-07-23 00:20:15 100 /min [facility] Systolic blood pressure 2019-07-23 00:20:15 120 mm[Hg] [facility] Diastolic blood pressure 2019-07-23 00:20:15 74 mm[Hg] [facility] Heart rate 2019-07-23 00:20:15 82 /min [facility] Respiratory rate 2019-07-23 00:20:15 19 /min [facility] Body temperature 2019-07-22 19:41:00 36.33 Oma [facility] Body weight 2019-07-22 19:39:00 90.719 kg [facility] BMI 2019-07-22 19:39:00 39.06 kg/m2 [facility] Systolic blood pressure 2019-07-14 03:33:00 127 mm[Hg] [facility] Diastolic blood pressure 2019-07-14 03:33:00 88 mm[Hg] [facility] Heart rate 2019-07-14 03:33:00 79 /min [facility] Respiratory rate 2019-07-14 03:33:00 16 /min [facility] Oxygen saturation in Arterial blood by Pulse oximetry 2019-07-14 03:33:00 97 /min [facility] Body weight 2019-07-14 02:16:00 90.719 kg [facility] BMI 2019-07-14 02:16:00 39.06 kg/m2 [facility] Body temperature 2019-07-14 02:15:00 36.78 Oma [facility] Body weight 2019-07-10 20:39:00 90.719 kg [facility] BMI 2019-07-10 20:39:00 39.06 kg/m2 [facility] Systolic blood pressure 2019-01-21 23:34:00 133 mm[Hg] [facility] Diastolic blood pressure 2019-01-21 23:34:00 78 mm[Hg] [facility] Heart rate 2019-01-21 23:34:00 66 /min [facility] Body temperature 2019-01-21 23:34:00 36.94 Oma [facility] Respiratory rate 2019-01-21 23:34:00 18 /min [facility] Body height 2019-01-21 23:34:00 147.3 cm [facility] Heart rate 2019-01-21 23:34:00 66 /min [facility] Body temperature 2019-01-21 23:34:00 36.94 Oma [facility] Respiratory rate 2019-01-21 23:34:00 18 /min [facility] Body height 2019-01-21 23:34:00 147.3 cm [facility] Body weight 2019-01-21 23:34:00 68.04 kg [facility] BMI 2019-01-21 23:34:00 31.35 kg/m2 [facility] Oxygen saturation in Arterial blood by Pulse oximetry 2019-01-21 23:34:00 100 /min [facility] BP Systolic 2024-02-24 13:46:00 107 mm[Hg] Step [...] Measured 2023-05-24 15:54:00 171.00 pounds Henry F eBn Height Measured 2023-05-24 15:54:00 56.50 inches Henry [...] OF BENEFITS 2023-07-23 18:45:32 Docto r Unassigned, [place] [facility] REFERRAL- REQUEST/RESPONSE 2023-06-05 06:01:00 Doctor Unassigned, [place] [facility] REFERRAL- REQUEST/RESPONSE 2023-05-20 06:01:00 Doctor Unassigned, [place] [facility] COMP. METABOLIC PANEL ([id number]) 2022-09-07 01:38:00 Tayo Boyd [facility] CBC WITH DIFF 2022-09-07 01:38:00 Tayo Boyd [facility] URINALYSIS 2022-09-07 01:38:00 Tayo Boyd [facility] XR ANKLE <3 VW LEFT 2022-09-07 00:56:00 Tayo Boyd [facility] XR FOOT <3 VW LEFT 2022-09-07 00:56:00 Tayo Boyd [facility] CONSENT/REFUSAL FOR DIAGNOSIS AND TREATMENT 2022-09-06 22:08:37 Doctor Unassigned, [place] [facility] CT CERVICAL SPINE WO CONTRAST 2021-10-02 21:53:00 Jvaed Frank [facility] CT LUMBAR SPINE WO CONTRAST 2021-10-02 21:53:00 Javed Frank [facility] CT THORACIC SPINE WO CONTRAST 2021-10-02 21:53:00 Javed Frank [facility] XR FOREARM 2 VW RIGHT 2021-05-05 20:03:34 Jose Carlos Nunez [facility] XR WRIST 3+ VW RIGHT 2021-05-05 20:03:34 Chino Nunez [facility] NOTICE OF PRIVACY PRACTICES 2021-05-05 19:12:00 Doctor Unassigned, [place] [facility] CONSENT/REFUSAL FOR DIAGNOSIS AND TREATMENT 2021-05-05 19:11:19 Doctor Unassigned, [place] [facility] CONSENT/REFUSAL FOR DIAGNOSIS AND TREATMENT 2019-08-13 19:17:22 Doctor Unassigned, [place] [facility] CT HEAD WO CONTRAST 2019-07-22 22:24:37 Rachel Samayoa [facility] [facility] CERVICAL SPINE 2 VW 2019-07-22 21:59:59 Samantha Samayoa [facility] CBC WITH DIFFERENTIAL 2019-07-22 21:34:00 Yanira Samayoa [facility] XR CERVICAL SPINE 2 VW 2019-07-14 02:43:00 Ivory Owen [facility] XR ELBOW <3 VW LEFT 2019-07-14 02:43:00 Henry Owen [facility] XR KNEE <3 VW RIGHT 2019-07-14 02:43:00 Henry Owen [facility] XR SHOULDER <2 VW LEFT 2019-07-14 02:43:00 Ivory Owen [facility] [id number] Ecg Routine Ecg W/least 12 Lds W/i r 2017-09-24 00:00:00 Henry Contreras Encounters Start Date/Time End Date/Time Encounter Type Admission Type Attending [facility] Care Facility Care Department Encounter ID Source 2022-11-13 13:10:28 Inpatient [facility] [id number] [facility] 2022-11-05 09:23:13 Inpatient [facility] [id number] [facility] 2024-04-15 15:38:37 2024-04-15 15:38:37 Outpatient [facility] [id number] Henry Etta Ben 2024-02-24 00:00:00 2024-02-24 00:00:00 Outpatient Visit [facility] [id number] Henry Contreras 2024-02-06 11:12:07 2024-02-06 11:12:07 Outpatient [facility] [id number] Henry Contreras 2024-01-02 13:29:25 2024-01-02 13:29:25 Outpatient [facility] [id number] Henry Contreras 2024-01-01 13:05:17 2024-01-01 13:05:17 Outpatient [facility] [id number] Henry Contreras 2023-12-23 17:12:35 2023-12-23 17:12:35 Outpatient [facility] 700 Henry Contreras 2023-12-22 16:03:42 2023-12-22 16:03:42 Outpatient [facility] [id number] Henry Contreras 2023-12-01 14:21:07 2023-12-01 14:21:07 Outpatient [facility] 608 Henry Quiles Ben 2023-11-25 16:08:00 2023-11-25 16:08:00 Outpatient [facility] 602 Henry Contreras 2023-11-25 00:00:00 2023-11-25 00:00:00 Outpatient Visit [facility] [id number] Henry Quiles Ben 2023-11-23 19:45:00 2023-11-24 19:04:00 Outpatient Encounter 1 [facility] 2.16.840.1. [id number] [facility] 2023-11-21 19:00:00 2023-11-22 01:00:00 [id number] [facility] 2023-11-16 23:05:00 2023-11-21 17:28:00 Inpatient ER [facility]EL [id number] [facility] 2023-11-15 16:24:00 2023-11-15 22:54:00 Emergency ER MELVINA SHEPHERD CHRTJP CHRTJP [id number] [facility] 2023-10-28 12:27:38 2023-10-28 12:27:38 Outpatient [facility] [id number] Henry Contreras 2023-10-25 15:44:11 2023-10-25 15:44:11 Outpatient [facility] [id number] Henry Contreras 2023-10-25 00:00:00 2023-10-25 00:00:00 Outpatient Visit [facility] [id number] Henry Contreras 2023-10-04 15:25:52 2023-10-04 15:25:52 Outpatient [facility] [id number] Henry Contreras 2023-10-01 00:00:00 2023-10-01 00:00:00 Telephone [facility] 1.840.114 350.1.13.10 4.2.7.2.686 [id number] General acute hospital 2023-09-16 16:03:08 2023-09-16 16:03:08 Outpatient [facility] [id number] Henry Contreras 2023-08-01 10:00:49 2023-08-01 10:00:49 Outpatient [facility] [id number] Henry Contreras 2023-07-23 14:20:00 2023-07-23 16:57:02 Outpatient INDIO OLIVEROS HOWARD [facility] [id number] General acute hospital 2023-07-23 14:20:00 2023-07-23 16:57:02 Office Visit [facility] MED[facility] 1.840.114 350.1.13.10 4.2.7.2.686 [id number] General acute hospital 2023-07-23 00:00:00 2023-07-23 00:00:00 Orders Only Doctor Unassigned, [place] [facility] 1.840.114 350.1.13.10 4.2.7.2.686 [id number] General acute hospital 2023-07-04 16:48:23 2023-07-04 16:48:23 Outpatient [facility] [id number] Henry Contreras 2023-06-18 10:35:36 2023-06-18 10:35:36 Outpatient [facility] [id number] Henry Contreras 2023-06-05 00:00:00 2023-06-05 00:00:00 Orders Only Doctor Unassigned, [place] [facility] 1.2.840.114 350.1.13.10 4.2.7.2.686 [id number] General acute hospital 2023-06-04 16:00:39 2023-06-04 16:00:39 Outpatient [facility] [id number] Henry Quiles [place] 2023-05-24 15:38:52 2023-05-24 15:38:52 Outpatient [facility] [id number] Henry Quiles [place] 2023-05-22 00:00:00 2023-05-22 00:00:00 Letter (Out) Neurology [facility] OFFICE BUILDING 1.2.840.114 350.1.13.10 4.2.7.2.686 [id number] General acute hospital 2023-05-20 00:00:00 2023-05-20 00:00:00 Orders Only Doctor Unassigned, [place] [facility] 1.2.840.114 350.1.13.10 4.2.7.2.686 [id number] General acute hospital 2023-05-17 15:07:14 2023-05-17 15:07:14 Outpatient [facility] [id number] Henry Quiles Ben 2023-03-02 12:27:43 2023-03-02 12:27:43 Outpatient [facility] [id number] Henry Quiles Ben 2023-01-09 17:11:26 2023-01-09 17:11:26 Outpatient [facility] [id number] Henry Contreras 2022-11-04 14:04:00 2022-11-05 11:09:00 Emergency [facility] [id number] [facility] 2022-09-24 12:33:00 2022-09-24 12:51:00 Emergency Heri Snow [facility] 1..114 350.1.13.10 4.2.7.2.686 [id number] General acute hospital 2022-09-22 00:00:00 2022-09-22 00:00:00 [facility] 1..114 350.1.13.10 4.2.7.2.686 [id number] General acute hospital 2022-09-18 10:09:00 2022-09-19 14:28:00 Inpatient EM Marly Mendenhall [facility] OBSE [id number] [facility] 2022-09-16 22:50:00 2022-09-17 01:40:00 Emergency EM Guero, Asim [facility] FABI [id number] [facility] 2022-09-14 14:52:00 2022-09-15 14:00:00 Inpatient EM Vladimir Forbes [facility] TELE [id number] [facility] 2022-09-13 09:34:00 2022-09-13 13:00:00 Emergency EM Brad Woodall [facility] FABI [id number] [facility] 2022-09-10 23:39:00 2022-09-11 11:28:00 Emergency EM Russel Sewell [facility] [id number] 51 [facility] Martín [facility] 2022-09-10 18:57:00 2022-09-10 20:20:00 Emergency Lisa Morfin Whitney [facility] 1.84.114 350.1.13.10 4.2.7.2.686 [id number] General acute hospital 2022-09-10 18:57:00 2022-09-10 20:20:00 Emergency X SANDRITA KEY [facility] ERT [id number] General acute hospital 2022-09-09 20:45:00 2022-09-09 22:46:00 Emergency X SANDRITA KEY [facility] ERT [id number] General acute hospital 2022-09-09 20:45:00 2022-09-09 22:46:00 Emergency Sandrita Key [facility] 1..840.114 350.1.13.10 4.2.7.2.686 [id number] General acute hospital 2022-09-06 18:09:00 2022-09-07 00:51:00 Emergency X TAYO BOYD [facility] ERT [id number] General acute hospital 2022-09-06 18:09:00 2022-09-07 00:51:00 Emergency Tayo Boyd [facility] 1..840.114 350.1.13.10 4.2.7.2.686 [id number] General acute hospital 2022-08-21 14:11:33 2022-08-21 14:11:33 Outpatient [facility] [id number] Henry Contreras 2022-07-17 15:03:48 2022-07-17 15:03:48 Outpatient [facility] [id number] Henry Quiles Ben 2021-10-02 15:56:00 2021-10-02 19:00:00 Emergency X JAVED FRANK [facility] ERT [id number] General acute hospital 2021-10-02 15:56:00 2021-10-02 19:00:00 Emergency Javed Frank [facility] 1..840.114 350.1.13.10 4.2.7.2.686 [id number] General acute hospital 2021-05-05 13:22:00 2021-05-05 14:48:00 Emergency X DEON NUNEZ [facility] ERT [id number] General acute hospital 2021-05-05 13:22:00 2021-05-05 14:48:00 Emergency Deon Nunez [facility] 1.2.840.114 350.1.13.10 4.2.7.2.686 [id number] General acute hospital 2021-05-05 00:00:00 2021-05-05 00:00:00 Orders Only Doctor Unassigned, [place] [facility] 1.2.840.114 350.1.13.10 4.2.7.2.686 [id number] General acute hospital 2019-12-15 17:11:56 2019-12-15 18:04:00 [facility] 1.2.840.114 350.1.13.10 4.2.7.2.686 [id number] General acute hospital 2019-12-15 17:11:56 2019-12-15 18:04:00 Emergency Kp Gilliland [facility] 1.2.840.114 350.1.13.10 4.2.7.2.686 [id number] 2019-12-15 17:11:56 2019-12-15 17:11:56 Emergency X Kp GILLILAND [facility] ERT [id number] General acute hospital 2019-10-25 18:31:31 2019-10-25 19:21:00 Emergency Kristin Miller [facility] 1.2.840.114 350.1.13.10 4.2.7.2.686 [id number] General acute hospital 2019-10-25 18:31:31 2019-10-25 19:21:00 Emergency Kristin Miller [facility] 1.2.840.114 350.1.13.10 4.2.7.2.686 [id number] 2019-10-25 18:31:31 2019-10-25 18:31:31 Emergency X KRISTIN MILLER [facility] ERT [id number] General acute hospital 2019-08-13 13:30:00 2019-08-13 14:36:00 Emergency Floridalma Evans [facility] 1.2.840.114 350.1.13.10 4.2.7.2.686 [id number] General acute hospital 2019-08-13 13:30:00 2019-08-13 14:36:00 Emergency X FLORIDALMA EVANS [facility] ERT [id number] General acute hospital 2019-08-13 13:30:00 2019-08-13 14:36:00 [facility] 1.2.840.114 350.1.13.10 4.2.7.2.686 [id number] 2019-07-22 13:42:11 2019-07-22 19:02:00 Emergency X LISA MORFIN [facility] ERT [id number] General acute hospital 2019-07-22 13:42:11 2019-07-22 19:02:00 Emergency Unknown, Attending Lisa Morfin [facility] 1.2.840.114 350.1.13.10 4.2.7.2.686 [id number] General acute hospital 2019-07-22 13:42:11 2019-07-22 19:02:00 Emergency Unknown, Attending Lisa Morfin [facility] 1.2.840.114 350.1.13.10 4.2.7.2.686 [id number] 2019-07-13 20:17:19 2019-07-13 21:48:00 Emergency X LEXIE HENRY [facility] ERT [id number] General acute hospital 2019-07-13 20:17:19 2019-07-13 21:48:00 Emergency Lexie, Henry [facility] 1.2.840.114 350.1.13.10 4.2.7.2.686 [id number] General acute hospital 2019-07-10 14:26:03 2019-07-10 16:33:00 Emergency X DEBBIE PAYTON [facility] ERT [id number] General acute hospital 2019-07-10 14:26:03 2019-07-10 16:33:00 Emergency Debbie Payton [facility] 1.2840.114 350.1.13.10 4.2.7.2.686 [id number] General acute hospital 2019-07-04 19:09:02 2019-07-04 22:51:00 Emergency X LISA MORFIN [facility] ERT [id number] General acute hospital 2019-06-30 10:33:08 2019-06-30 13:10:00 Emergency X DEON [facility] ERT [id number] General acute hospital 2019-05-25 11:58:19 2019-05-25 15:37:00 Emergency X DEON [facility] ERT [id number] General acute hospital 2019-04-09 22:29:37 2019-04-09 23:28:00 Emergency X FLORIDALMA EVANS [facility] ERT [id number] General acute hospital 2019-01-21 18:38:01 2019-01-21 19:59:00 Emergency Le Ramirez [facility] 1.2.840.114 350.1.13.10 4.2.7.2.686 [id number] 2019-01-21 18:38:01 2019-01-21 19:59:00 Emergency Le Ramirez [facility] 1.2.840.114 350.1.13.10 4.2.7.2.686 [id number] General acute hospital Results Test Description Test Time Test Comments Results Result Co mments Source Henry Daniel [id number] 04:20:00* Test Item Value Reference Range Interpretation Comme nts FT4 (test code = FT4) 1.05 ng/dL 0.78-2.19 T3 [id number] 04:20:00* Test Item Value Reference Range Interpretation Comme nts T3UP (test code = T3UP) 40.9 % 23.5-40.5 H Thyroxine (T4) free index in Serum or [id number] 04:19:00* Test Item Value Reference Range Interpretation Comme nts Thyroxine (T4) free index in Serum or Plasma (test code = 29359-9) 1.05 ng/dL 0.78-2.19 N [facility])Thyroid hormone uptake (T-uptake) in Serum or P 2023-11-24 04:18:00* Test Item Value Reference Range Interpretation Comme nts Thyroid hormone uptake (T-up take) in Serum or Plasma (test code = 94565-4) 40.9 % 23.5-40.5 H [facility])URINE DRUG [id number] 00:43:00* Test Item Value Reference Range Interpretation [...] abuse 5 panel - Urine by Screen [id number] 00:40:00 NegativeNegativeNegativeNegativeNegativeNegativeNegativeSaint [facility])[id number] 00:33:00* Test Item Value Reference Range Interpretation [...] /HPF 0-2 Urinalysis panel - Urine by [id number] 00:33:00* Test Item Value Reference Range Interpretation Comme nts Ketones [Presence] in Urine (test code = 84330-3) 15 MG/DL NEG N pH of Urine (test code = 2756-5) 5.5 1 5.0-7.5 N Urobilinogen [Presence] in U rine (test code = 12232-9) 0.2 EU/DL 0.2-1.0 N Specific gravity of Urine (t est code = 2965-2) 1.013 1 1.0-1.025 N Leukocytes [Presence] in Uri ne sediment by Light microscopy (test code = 35368-5) 10 /HPF 0.0-5.0 H Erythrocytes [Presence] in U rine sediment by Light microscopy (test code = 78987-2) 2 /HPF 0.0-2.0 N [facility])VITAMIN [id number] 22:47:00* Test Item Value Reference Range Interpretation Comme nts B12 (test code = B12) 880 pg/mL 239-931 [id number] 22:47:00* Test Item Value Reference Range Interpretation Comme nts FOLATE (test code = FOLATE) 8.9 ng/mL 2.76-20.0 THYROID STIMULATION [id number] 22:47:00* Test Item Value Reference Range Interpretation Comme nts TSH (test code = TSH) 6.62 UIU/ML 0.465-4.68 H Cobalamin (Vitamin B12) [Mass/volume] in Zuesy0062-94-30 22:47:00* Test Item Value Reference Range Interpretation Comme nts Cobalamin (Vitamin B12) [Mass/volume] in Serum or Plasma (test code = 2132-9) 880 pg/mL 239.0-931.0 N [facility])Folate [Mass/volume] in Serum or Ilgxef3276-72-26 22:47:00* Test Item Value Reference Range Interpretation Comme nts Folate [Mass/volume] in Seru m or Plasma (test code = 2284-8) 8.9 ng/mL 2.76-20.0 N [facility])Thyrotropin in Serum or [id number] 22:47:00* Test Item Value Reference Range Interpretation Comme nts Thyrotropin in Serum or Plas ma (test code = 82759-5) 6.62 UIU/ML 0.465-4.68 H [facility])ER SCREEN FOR HIV / 22:46:00* Test Item Value Reference Range Interpretation Comme nts HIV 1/2 AB (test code = SCRN HIV) NEGATIVE NEGATIVE This test is us ed for SCREENING purposes only. All reactive results are prelimenary and confirmation results will follow. HIV 1+2 Ab [Units/volume] in Ipeiq4967-03-08 [facility]:45[facility]HEPATITIS C ANTIBODY GYAVOC1960-45-60 22:28:00* Test Item Value Reference Range Interpretation Comme nts SCRN HCV (test code = SCRN HCV) NEGATIVE NEGATIVE Hepatitis C Anti body test is for screening purposes only. All reactives will be confirmed by additional testing. Hepatitis C virus Ab [Presence] in Rgtsl1756-10-36 22:27:[facility])B-HCG QUAL (KIT)2023-11-23 22:01:00* Test Item Value Reference Range Interpretation Comme nts HCGQUAL (test code = HCGQUAL) NEGATIVE NEGATIVE URINE: NEGATIVE = < 20 mIU/ML; POSITIVE= >/= 20 mIU/ML SERUM: NEGATIVE = < 10 mIU/ML; POSITIVE= >/= 10 mIU/ML SOURCE (test code = SOURCE) SERUM HCG INTERNAL POSITIVE CNTRL (test code = HCGIPC) PASS PASS HCG LOT # (test code = UHCGLOT) [id number] HCG EXPIRATION DATE (test code = UHCGEXP) Choriogonadotropin.beta subunit ( xqqn7607-97-10 22:01:00* Test Item Value Reference Range Interpretation Comme nts Specimen source [Identifier] of Body fluid (test code = 16928-3) SERUM N Reagent Lot number (test cod e = 34022-8) 1 N [facility])CT HEAD W/O [id number] 22:00:00 [facility] ROBERT JONATHAN : 1975 Sex: F[address] [address]FYRPBOJORX IMAGING REPORTPatient Name: ROBERT, CONCEPTIONDate of Service: 26-99-6855Mur: 48 Sex: F Order #: [id number] Room: ERSDOB: 1975 X-Ray Number: [id number] Record Number: [id number] Hospital Number: [id number] Physician: LAWRENCE MEJIASOrdering Physician: LAWRENCE MEJIASPROCEDURE: CTHEAD [...] 21:59:03CT Head and Orbit - bilateral WO ueyjprwr7953-22-66 21:59:03 ORDER 1400: CT HEAD W/O CONT (LOINC: 23211-9)ORDER DATE: November 24, 2023 12:50:00 AM [facility] [place])CT ABDOMEN/PELVIS [id number] 21:54:00 [facility] ROBERT CONCEPTION : 1975 Sex: F[address] [address]QTPQHSSFKV IMAGING REPORTPatient Name: ROBERT, CONCEPTIONDate of Service: 86-91-3636Xmc: 48 Sex: F Order #: [id number] Room: ERSDOB: 1975 X-Ray Number: [id number] Record Number: [id number] Hospital Number: [id number] Physician: LAWRENCE MEJIASOrdering Physician: LAWRENCE MEJIASPROCEDURE: CT [...] YUNIOR MCKEON 2023-11-23 21:53:03 CT Abdomen and Nzucqw6047-68-42 21:53:03ORDER 1500: CT ABDOMEN/PELVIS WITHOUT (LOINC: 21626-5)ORDER DATE: November 24, 2023 12:50:00 AM [facility])[id number] 21:31:00* Test Item Value Reference Range Interpretation [...] 70-99 Fasting glucos e normal <100 MG/DL- [employer] [place] [employer] recommendation CALCIUM (test code = [...] of age is not validated by the baking assistant and may not represent the patients true [...] should be used in the calculation". CREATINE [id number] 21:31:00* Test Item Value Reference Range Interpretation Comme nts CK (test code = CK) 115 U/L 30-135 BLOOD ALCOHOL (ETOH)2023-11-23 21:31:00* Test Item Value Reference Range Interpretation Comme nts ALCOHOL BLOOD LEVEL (test code = ALC BLD) <10 MG/DL 0-10 Results ar e to be used for medical purposes (treatment) only. Not intended for non medical purposes. Ethanol [Mass/volume] in [id number] 21:30:00* Test Item Value Reference Range Interpretation Comme nts Ethanol [Mass/volume] in Blo od (test code = 5640-8) <10 0.0-10.0 [facility] [place])Creatine kinase isoenzymes [interpretation] in 2023-11-23 21:30:00* Test Item Value Reference Range Interpretation Comme nts Creatine kinase isoenzymes [interpretation] in Serum or Plasma Narrative (test code = 95785-7) 115 U/L 30.0-135.0 [facility] [place])Comprehensive metabolic 2000 panel - Serum or P 2023-11-23 21:27:00* Test Item Value Reference Range Interpretation Comme nts Sodium [Moles/volume] in Blood (test code = 2947-0) 137 MMOL/L 137.0-145.0 N Potassium [Moles/volume] in Blood (test code = 6298-4) 4.2 MMOL/L 3.5-5.1 N Chloride [Moles/volume] in Blood (test code = 2069-3) 100 MMOL/L 98.0-107.0 N Carbon dioxide, total [Moles/volume] in Blood (test code = 98527-2) 24 MMOL/L 22.0-30.0 N Urea nitrogen [Mass/volume] in Serum or Plasma (test code = 3094-0) 16 MG/DL 7.0-17.0 N Creatinine [Mass/volume] in Blood (test code = 08877-1) 0.6 MG/DL 0.7-1.2 L Glucose [Mass/volume] in Blood (test code = 2339-0) 80 MG/DL 70.0-99.0 N Calcium [Mass/volume] in Serum or Plasma (test code = 49443-9) 10.3 MG/DL 8.4-10.2 H Protein [Mass/volume] in Serum or Plasma (test code = 2885-2) 9.9 G/DL 6.3-8.2 H Albumin [Presence] in Serum or Plasma (test code = 00331-0) 4.7 G/DL 3.5-5.0 N Bilirubin direct and total panel [Mass/volume] - Serum or Plasma (test code = 46407-3) 0.8 MG/DL 0.2-1.3 N Aspartate aminotransferase [Enzymatic [...] 50 percent [- Reported] (test code = 21572-8) 113.0 mL/min/1.73m2 N Anion gap in Serum or Plasma (test code = 36031-3) 13 mmol/L 4.0-12.0 H [facility])[id number] 21:15:00* Test Item Value Reference Range Interpretation [...] 1.2-7.2 CBC W Auto Differential panel - [id number] 21:15:00* Test Item Value Reference Range Interpretation Comme nts Leukocytes other [Identifier ] in Blood by Automated count (test code = 53969-1) 4.5 K/UL 3.5-10.9 N Erythrocytes [#/volume] in B lood (test code = 31879-8) 4.91 M/UL 4.0-5.0 N Hemoglobin A/Hemoglobin.tota l in Blood (test code = 4546-8) 13.8 G/DL 11.5-15.5 N Hematocrit [Volume Fraction] of Blood (test code = 92917-1) 42.4 % 34.0-46.0 N Erythrocyte mean corpuscular volume [Entitic volume] (test code = 21265-9) 86.4 FL 80.0-98.0 N Erythrocyte mean corpuscular hemoglobin [Entitic mass] (test code = 20973-7) 28.1 PG 28.0-32.0 N Erythrocyte mean corpuscular hemoglobin concentration [Mass/volume] (test code = 88348-2) 32.5 G/DL 32.5-36.5 N Erythrocyte distribution wid th [Ratio] (test code = 64799-4) 14.9 % 11.5-14.5 H Platelets panel - Blood by Automated count (test code = 74328-5) 124 K/UL 150.0-450.0 L Platelet mean volume [Entiti c volume] in Blood by Automated count (test code = 55462-2) 10.0 FL 7.4-10.4 N Neutrophils.segmented/100 leukocytes in Blood (test code = 51752-1) 53.3 % 40.0-75.0 N Lymphocytes Variant/100 leuk ocytes in Blood (test code = 94702-7) 33.9 % 24.0-44.0 N Lymphocytes+Monocytes/100 leukocytes in Blood (test code = 4662-3) 10.0 % 0.0-13.0 N Eosinophils [#/volume] in Bl ood (test code = 46185-0) 2.2 % 0.0-4.0 N Basophils [#/volume] in Bloo d (test code = 79859-9) 0.4 % 0.0-2.0 N Immature granulocytes/100 leukocytes in Blood (test code = 21165-1) 0.2 % 0.0-1.0 N Nucleated erythrocytes [#/vo lume] in Blood (test code = 23149-0) 0 /100 WBC N Neutrophils [#/volume] in Bl ood (test code = 91560-0) 2.4 K/UL 1.2-7.2 N [facility]PAP TEST, THINPREP, [id number] 16:02:24* Test Item Value Reference Range Interpretation Comme nts SOURCE: (test code = 8001) Cervical/Endoce rvical SLIDES: (test code = 8011) 1 LMP: (test code = 8021) SEE NOTE POST MENOPAUSAL SPECIMEN ADEQUACY: (test code = 37537) (NOTE) Satisfactory for evaluation. Endocervical cells/transformation zone component present. INTERPRETATION: (test code = 32040) NILM/NO EPITH. ABNORMALITY;SEE BELOW --- - NEGATIVE FOR INTRAEPITHELIAL LESION OR MALIGNANCY (NILM) ---- ENVIRONMENTAL ASSISTANT : (test code = 8101) Jami Smalls LOCATION: (test code = 42215) (NOTE) Specimens proces sed and interpreted at [facility], [address] [place] [id number], , CLIA: [id number] CPT: (test code = 8140) (NOTE) 28196 UNLESS OTH ERWISE INDICATED, COMPUTER AIDED AND ENVIRONMENTAL ASSISTANT SCREENING PERFORMED. The Pap test is a screening test with an inherent, but low probability of error. Your patient should be reminded to consult you immediately if she experiences any suspicious signs or symptoms, regardless of her Pap test result. An alternate report format containing images or consolidated prior Pap history is available as applicable. HPV HIGH RISK WITH GENOTYPE, [id number] 15:53:52* Test Item Value Reference Range Interpretation Comme nts HPV HIGH RISK INTERP (test code = 57574) NEGATIVE NEGATIVE HPV 16 (test code = 32684) NEGATIVE HPV 18 (test code = 89067) NEGATIVE HPV, HR, OTHER GENOTYPES (test code = 69257) NEGATIVE Testing methodol ian is real-time PCR [...] TESTING PERFORMED AT [facility] [address] [place] [id number] SENIOR MECHANICAL DESIGN ENGINEER: JATIN FELIPE M.D. CLIA NUMBER [id number] [facility] [place]. [id number] HPV HIGH RISK WITH GENOTYPE, [id number] 00:00:00* Test Item Value Reference Range Interpretation Comme [facility] HPV HIGH RISK INTERP (test c ode = 91115) NEGATIVE HPV 16 (test code = 92374) NEGATIVE HPV 18 (test code = 85611) NEGATIVE HPV, HR, OTHER GENOTYPES (te st code = 95496) NEGATIVE PDFE (test code = PDFReport) PDF Henry ContrerasPAP TEST, THINPREP, [id number] 00:00:00* Test Item Value Reference Range Interpretation Comme [facility] SOURCE: (test code = 8001) Cervical/Endocervical SLIDES: (test code = 8011) 1 LMP: (test code = 8021) SEE NOTE SPECIMEN ADEQUACY: (test code = 51838) (NOTE) INTERPRETATION: (test code = 34304) NILM/NO EPITH. ABNORMALITY;SEE BELOW ENVIRONMENTAL ASSISTANT: (test code = 8101) Jami Smalls LOCATION: (test code = 32714) (NOTE) CPT: (test code = 8140) (NOTE) Henry ContrerasHPV HIGH RISK WITH GENOTYPE, [id number] 00:00:00* Test Item Value Reference Range Interpretation Comme [facility] HPV HIGH RISK INTERP (test c ode = 89289) NEGATIVE HPV 16 (test code = 05545) NEGATIVE HPV 18 (test code = 00316) NEGATIVE HPV, HR, OTHER GENOTYPES (te st code = 42343) NEGATIVE PDFE (test code = PDFReport) PDF Henry ContrerasPAP TEST, THINPREP, [id number] 00:00:00* Test Item Value Reference Range Interpretation Comme nts SOURCE: (test code = 8001) Cervical/Endocervical SLIDES: (test code = 8011) 1 LMP: (test code = 8021) SEE NOTE SPECIMEN ADEQUACY: (test code = 33368) (NOTE) INTERPRETATION: (test code = 43928) NILM/NO EPITH. ABNORMALITY;SEE BELOW ENVIRONMENTAL ASSISTANT: (test code = 8101) Jami Smalls LOCATION: (test code = 21497) (NOTE) CPT: (test code = 8140) (NOTE) Henry ContrerasHPV HIGH RISK WITH GENOTYPE, [id number] 00:00:00* Test Item Value Reference Range Interpretation Comme nts HPV HIGH RISK INTERP (test c ode = 86194) NEGATIVE HPV 16 (test code = 46451) NEGATIVE HPV 18 (test code = 29083) NEGATIVE HPV, HR, OTHER GENOTYPES (te st code = 27999) NEGATIVE PDFE (test code = PDFReport) PDF Henry ContrerasPAP TEST, THINPREP, [id number] 00:00:00* Test Item Value Reference Range Interpretation Comme nts SOURCE: (test code = 8001) Cervical/Endocervical SLIDES: (test code = 8011) 1 LMP: (test code = 8021) SEE NOTE SPECIMEN ADEQUACY: (test code = 98080) (NOTE) INTERPRETATION: (test code = 97655) NILM/NO EPITH. ABNORMALITY;SEE BELOW ENVIRONMENTAL ASSISTANT: (test code = 8101) Jami Smalls LOCATION: (test code = 03521) (NOTE) CPT: (test code = 8140) (NOTE) Henry ContrerasPAP TEST, THINPREP, IMAGED [ADDED]2023-10-10 00:00:00* Test Item Value Reference Range Interpretation Comme nts SOURCE: (test code = 8001) Unspecified SLIDES: (test code = 8011) 2 LMP: (test code = 8021) NOT GIVEN SPECIMEN ADEQUACY: (test code = 57338) (NOTE) INTERPRETATION: (test code = 97841) UNSATISFACTORY; SEE BELOW OTHER COMMENTS: (test code = 8081) (NOTE) ENVIRONMENTAL ASSISTANT: (test code = 8101) Jose Bustillos QC TECHNOLOGIST: (test code = 8111) RAUL Wilde(ASCP),IAC LOCATION: (test code = 30074) (NOTE) CPT: (test code = 8140) (NOTE) Henry F AustinHPV HIGH RISK IF ASC/LSIL, THINPREP [ADDED]2023-10-10 00:00:00* Test Item Value Reference Range Interpretation Comme nts HPV HIGH RISK IF ASC/LSIL, THINPREP (test code = 57419) CRITERIA NOT MET Henry F AustinPAP TEST, THINPREP, IMAGED [ADDED]2023-10-10 00:00:00* Test Item Value Reference Range Interpretation Comme nts SOURCE: (test code = 8001) Unspecified SLIDES: (test code = 8011) 2 LMP: (test code = 8021) NOT GIVEN SPECIMEN ADEQUACY: (test code = 27008) (NOTE) INTERPRETATION: (test code = 25647) UNSATISFACTORY; SEE BELOW OTHER COMMENTS: (test code = 8081) (NOTE) ENVIRONMENTAL ASSISTANT: (test code = 8101) Jose Bustillos QC TECHNOLOGIST: (test code = 8111) RAUL Wilde(ASCP),IAC LOCATION: (test code = 01880) (NOTE) CPT: (test code = 8140) (NOTE) Henry F AustinHPV HIGH RISK IF ASC/LSIL, THINPREP [ADDED]2023-10-10 00:00:00* Test Item Value Reference Range Interpretation Comme nts HPV HIGH RISK IF ASC/LSIL, THINPREP (test code = 15103) CRITERIA NOT MET Henry F AustinPAP TEST, THINPREP, IMAGED [ADDED]2023-10-10 00:00:00* Test Item Value Reference Range Interpretation Comme nts SOURCE: (test code = 8001) Unspecified SLIDES: (test code = 8011) 2 LMP: (test code = 8021) NOT GIVEN SPECIMEN ADEQUACY: (test code = 02707) (NOTE) INTERPRETATION: (test code = 02968) UNSATISFACTORY; SEE BELOW OTHER COMMENTS: (test code = 8081) (NOTE) ENVIRONMENTAL ASSISTANT: (test code = 8101) Jose Bustillos TECHNOLOGIST: (test code = 8111) Jason Whitman,SCT(ASCP),IAC LOCATION: (test code = 31549) (NOTE) CPT: (test code = 8140) (NOTE) Henry Quiles AustinHPV HIGH RISK IF ASC/LSIL, THINPREP [ADDED]2023-10-10 00:00:00* Test Item Value Reference Range Interpretation Comme nts HPV HIGH RISK IF ASC/LSIL, THINPREP (test code = 43331) CRITERIA NOT MET Henry Quiles AustinGONORRHEA, NAAT, THINPREP [ADDED]2023-10-08 00:00:00* Test Item Value Reference Range Interpretation Comme nts GONORRHEA, NAAT, THINPREP (t est code = 66976) NEGATIVE Henry Quiles AustinCHLAMYDIA, NAAT, THINPREP [ADDED]2023-10-08 00:00:00* Test Item Value Reference Range Interpretation Comme nts CHLAMYDIA, NAAT, THINPREP (t est code = 92798) NEGATIVE PDFE (test code = PDFReport) PDF Henry Quiles AustinGONORRHEA, NAAT, THINPREP [ADDED]2023-10-08 00:00:00* Test Item Value Reference Range Interpretation Comme nts GONORRHEA, NAAT, THINPREP (t est code = 96318) NEGATIVE Henry Quiles AustinCHLAMYDIA, NAAT, THINPREP [ADDED]2023-10-08 00:00:00* Test Item Value Reference Range Interpretation Comme nts CHLAMYDIA, NAAT, THINPREP (t est code = 75657) NEGATIVE PDFE (test code = PDFReport) PDF Henry Quiles AustinGONORRHEA, NAAT, THINPREP [ADDED]2023-10-08 00:00:00* Test Item Value Reference Range Interpretation Comme nts GONORRHEA, NAAT, THINPREP (t est code = 76541) NEGATIVE Henry Quiles AustinCHLAMYDIA, NAAT, THINPREP [ADDED]2023-10-08 00:00:00* Test Item Value Reference Range Interpretation Comme nts CHLAMYDIA, NAAT, THINPREP (t est code = 44979) NEGATIVE PDFE (test code = PDFReport) PDF HenryTRISTAN Tom [id number] 08:14:44* Test Item Value Reference Range Interpretation Comme shaina ALCALA, THIRD GENERATION (test code = 2821) 5.200 UIU/ML 0.400-4.100 H UNLESS OTHERWISE INDICATED, ALL TESTING PERFORMED AT [facility] [address] [place] [address] SENIOR MECHANICAL DESIGN ENGINEER: JATIN FELIPE M.D. [place] NUMBER [id number] [facility] [place]. [id number] 00:00:00* Test Item Value Reference Range Interpretation Comme shaina TSH, THIRD GENERATION (test code = 2821) 5.200 UIU/ML Henry [id number] 00:00:00* Test Item Value Reference Range Interpretation Comme nts TSH, THIRD GENERATION (test code = 2821) 5.200 UIU/ML Henry [id number] 00:00:00* Test Item Value Reference Range Interpretation Comme shaina ALCALA, THIRD GENERATION (test code = 2821) 5.200 UIU/ML TRISTAN Grover [id number] 23:53:27* Test Item Value Reference Range Interpretation Comme shaina TSH, THIRD GENERATION (test code = 2821) 11.100 UIU/ML 0.400-4.100 H COMPREHENSIVE METABOLIC [id number] 23:46:03* Test Item Value Reference Range Interpretation Comme shaina GLUCOSE (test code = 2217) 97 MG/DL 70-99 BUN (test code = 2208) 7 MG/DL 6-20 CREATININE (test code = 2214) 0.61 MG/DL 0.60-1.30 eGFR (2020 CKD-EPI) (test code = 97820) 110 ML/MIN/1.73 >60 CALC BUN/CREAT (test code [...] 13 U/L 5-40 CBC W/AUTO DIFF WITH [id number] 08:48:44* Test Item Value Reference Range Interpretation [...] 0.00-0.10 ABS NUCLEATED RBCS (test code = 40556) 0.00 K/UL 0.00-0.11 UNLESS OTHER MONTOYA INDICATED, ALL TESTING PERFORMED AT [facility] [address] [place] [address] SENIOR MECHANICAL DESIGN ENGINEER: Derek FINNIA NUMBER [id number] [facility] [place]. [id number] 00:00:00* Test Item Value Reference Range Interpretation Comme nts TSH, THIRD GENERATION (test code = 2821) 11.100 UIU/ML Henry Etta BenCBC W/AUTO [id number] 00:00:00* Test Item Value Reference Range Interpretation [...] ABS NUCLEATED RBCS (test cod e = 29568) 0.00 K/UL Henry ContrerasCOMPREHENSIVE METABOLIC [id number] 00:00:00* Test Item Value Reference Range Interpretation Comme nts GLUCOSE (test code = 2217) 97 MG/DL BUN (test code = 2208) 7 MG/DL CREATININE (test code = 2214) 0.61 MG/DL eGFR (2020 CKD-EPI) (test code = 76473) 110 ML/MIN/1.73 CALC BUN/CREAT (test code = [...] (test code = 2219) 13 U/L Henry [id number] 00:00:00* Test Item Value Reference Range Interpretation Comme nts TSH, THIRD GENERATION (test code = 2821) 11.100 UIU/ML Henry ContrerasCBC W/AUTO [id number] 00:00:00* Test Item Value Reference Range Interpretation [...] ABS NUCLEATED RBCS (test cod e = 30232) 0.00 K/UL Henry Quiles AustinCOMPREHENSIVE METABOLIC [id number] 00:00:00* Test Item Value Reference Range Interpretation Comme nts GLUCOSE (test code = 2217) 97 MG/DL BUN (test code = 2208) 7 MG/DL CREATININE (test code = 2214) 0.61 MG/DL eGFR (2020 CKD-EPI) (test code = 83390) 110 ML/MIN/1.73 CALC BUN/CREAT (test code = [...] (test code = 2219) 13 U/L Henry [id number] 00:00:00* Test Item Value Reference Range Interpretation Comme nts TSH, THIRD GENERATION (test code = 2821) 11.100 UIU/ML Henry ContrerasCBC W/AUTO [id number] 00:00:00* Test Item Value Reference Range Interpretation [...] ABS NUCLEATED RBCS (test cod e = 61327) 0.00 K/UL Henry ContrerasCOMPREHENSIVE METABOLIC [id number] 00:00:00* Test Item Value Reference Range Interpretation Comme nts GLUCOSE (test code = 2217) 97 MG/DL BUN (test code = 2208) 7 MG/DL CREATININE (test code = 2214) 0.61 MG/DL eGFR (2020 CKD-EPI) (test code = 22423) 110 ML/MIN/1.73 CALC BUN/CREAT (test code = [...] (test code = 2219) 13 U/L Henry [id number] 01:13:06* Test Item Value Reference Range Interpretation Comme nts TRANSFERRIN (test code = 4936) 315 MG/DL 200-360 UNLESS OTHERWISE INDICATED, ALL TESTING PERFORMED AT [facility] [address] [place] [address] SENIOR MECHANICAL DESIGN ENGINEER: JATIN FELIPE M.D. CLIA NUMBER [id number] [facility] [place] [place]. [id number] LIPID [id number] 01:12:48* Test Item Value Reference Range Interpretation [...] SPECIMENS. FOR MOREINFORMATION, SEE CLIENT ANNOUNCEMENT AT [email or web address] RISK RATIO LDL/HDL (test code = 2237) 1.34 RATIO <3.22 COMPREHENSIVE METABOLIC [id number] 01:12:48* Test Item Value Reference Range Interpretation [...] IRON BINDING CAPACITY AND IRON AND % [id number] 01:12:48* Test Item Value Reference Range Interpretation Comme nts IRON, SERUM (test code = 2221) 51 UG/DL 37-145 UNSATURATED IBC (test code = 37865) 356 UG/DL 112-347 H CALC TOTAL IBC (test code = 2076) 407 UG/DL 250-450 CALC % IRON SAT (test code = 2078) 13 % 20-50 L [id number] 00:59:24* Test Item Value Reference Range Interpretation Comme nts FERRITIN (test code = 2074) 20 NG/ML 13-200 LIPID [id number] 00:00:00* Test Item Value Reference Range Interpretation Comme nts CHOLESTEROL (test code = 2210) 191 MG/DL TRIGLYCERIDES (test code = 2232) 89 MG/DL HDL CHOLESTEROL (test code = 2220) 74 MG/DL CALC LDL CHOL (test code = 2237) 99 MG/DL RISK RATIO LDL/HDL (test cod e = 2238) 1.34 RATIO Henry Quiles BenCOMPREHENSIVE METABOLIC [id number] 00:00:00* Test Item Value Reference Range Interpretation Comme nts GLUCOSE (test code = 2217) 92 MG/DL BUN (test code = 2208) 15 MG/DL CREATININE (test code = 2214) 0.65 MG/DL eGFR (2020 CKD-EPI) (test code = 83212) 108 ML/MIN/1.73 CALC BUN/CREAT (test code = [...] BenIRON BINDING CAPACITY AND IRON AND % [id number] 00:00:00* Test Item Value Reference Range Interpretation Comme nts IRON, SERUM (test code = 2221) 51 UG/DL UNSATURATED IBC (test code = ) 356 UG/DL CALC TOTAL IBC (test code = 2076) 407 UG/DL CALC % IRON SAT (test code = 2078) 13 % Henry [id number] 00:00:00* Test Item Value Reference Range Interpretation Comme nts FERRITIN (test code = 2074) 20 NG/ML Henry [id number] 00:00:00* Test Item Value Reference Range Interpretation Comme nts TRANSFERRIN (test code = 4936) 315 MG/DL Henry ContrerasLIPID [id number] 00:00:00* Test Item Value Reference Range Interpretation Comme nts CHOLESTEROL (test code = 2210) 191 MG/DL TRIGLYCERIDES (test code = 2232) 89 MG/DL HDL CHOLESTEROL (test code = 2220) 74 MG/DL CALC LDL CHOL (test code = 2237) 99 MG/DL RISK RATIO LDL/HDL (test cod e = 2238) 1.34 RATIO Henry ContrerasCOMPREHENSIVE METABOLIC [id number] 00:00:00* Test Item Value Reference Range Interpretation Comme nts GLUCOSE (test code = 2217) 92 MG/DL BUN (test code = 2208) 15 MG/DL CREATININE (test code = 2214) 0.65 MG/DL eGFR (2020 CKD-EPI) (test code = 71027) 108 ML/MIN/1.73 CALC BUN/CREAT (test code = [...] ContrerasIRON BINDING CAPACITY AND IRON AND % [id number] 00:00:00* Test Item Value Reference Range Interpretation Comme nts IRON, SERUM (test code = 2221) 51 UG/DL UNSATURATED IBC (test code = ) 356 UG/DL CALC TOTAL IBC (test code = 2076) 407 UG/DL CALC % IRON SAT (test code = 2078) 13 % Henry [id number] 00:00:00* Test Item Value Reference Range Interpretation Comme nts FERRITIN (test code = 2074) 20 NG/ML Henry Quiles [id number] 00:00:00* Test Item Value Reference Range Interpretation Comme nts TRANSFERRIN (test code = 4936) 315 MG/DL Henry ContrerasLIPID [id number] 00:00:00* Test Item Value Reference Range Interpretation Comme nts CHOLESTEROL (test code = 2210) 191 MG/DL TRIGLYCERIDES (test code = 2232) 89 MG/DL HDL CHOLESTEROL (test code = 2220) 74 MG/DL CALC LDL CHOL (test code = 7) 99 MG/DL RISK RATIO LDL/HDL (test cod e = 2238) 1.34 RATIO Henry ContrerasCOMPREHENSIVE METABOLIC [id number] 00:00:00* Test Item Value Reference Range Interpretation Comme nts GLUCOSE (test code = 7) 92 MG/DL BUN (test code = 2208) 15 MG/DL CREATININE (test code = 2214) 0.65 MG/DL eGFR (2020 CKD-EPI) (test code = 86848) 108 ML/MIN/1.73 CALC BUN/CREAT (test code = [...] ContrerasIRON BINDING CAPACITY AND IRON AND % [id number] 00:00:00* Test Item Value Reference Range Interpretation Comme nts IRON, SERUM (test code = 2222) 51 UG/DL UNSATURATED IBC (test code = 70163) 356 UG/DL CALC TOTAL IBC (test code = 207) 407 UG/DL CALC % IRON SAT (test code = 207) 13 % Henry [id number] 00:00:00* Test Item Value Reference Range Interpretation Comme nts FERRITIN (test code = 2075) 20 NG/ML Henry Cont[id number] 00:00:00* Test Item Value Reference Range Interpretation Comme nts TRANSFERRIN (test code = 4936) 315 MG/DL Henry ContrerasHEMOGLOBIN [id number] 03:08:40* Test Item Value Reference Range Interpretation Comme nts HEMOGLOBIN A1c (test code = 04273) 5.5 % 4.2-5.6 CBC W/AUTO DIFF WITH [id number] 02:29:36* Test Item Value Reference Range Interpretation [...] 0.00-0.10 ABS NUCLEATED RBCS (test code = 26914) 0.00 K/UL 0.00-0.11 CBC W/AUTO [id number] 00:00:00* Test Item Value Reference Range Interpretation [...] ABS NUCLEATED RBCS (test cod e = 32789) 0.00 K/UL Henry Quiles AustinHEMOGLOBIN [id number] 00:00:00* Test Item Value Reference Range Interpretation Comme nts HEMOGLOBIN A1c (test code = 78533) 5.5 % Henry ContrerasCBC W/AUTO [id number] 00:00:00* Test Item Value Reference Range Interpretation [...] ABS NUCLEATED RBCS (test cod e = 33771) 0.00 K/UL Henry Quiles AustinHEMOGLOBIN [id number] 00:00:00* Test Item Value Reference Range Interpretation Comme nts HEMOGLOBIN A1c (test code = 64672) 5.5 % Henry ContrerasCBC W/AUTO [id number] 00:00:00* Test Item Value Reference Range Interpretation [...] ABS NUCLEATED RBCS (test cod e = 25267) 0.00 K/UL Henry ContrerasHEMOGLOBIN [id number] 00:00:00* Test Item Value Reference Range Interpretation Comme nts HEMOGLOBIN A1c (test code = 52255) 5.5 % Henry ContrerasDRUGS OF [id number] 05:03:00* Test Item Value Reference Range Interpretation [...] 200 ng/mL Opiates 300 ng/mL URINALYSIS WITH [id number] 04:56:00* Test Item Value Reference Range Interpretation [...] (test code = USPERM) /HPF NONE URINE [id number] 04:53:00* Test Item Value Reference Range Interpretation [...] the FDA and the [employer] ([employer]) are more stringent than those required for this test. Therefore, the result should be interpreted with caution and close attention to other clinical and epidemiological data [id number] 16:00:00* Test Item Value Reference Range Interpretation Comme nts SALICYLATE (test code = 94B) <3.0 mg/dL 15.0-30.0 L LIVER [id number] 15:49:00* Test Item Value Reference Range Interpretation [...] code = 31A) <7 IU/L 10-49 L [id number] 15:48:00* Test Item Value Reference Range Interpretation [...] to interpret this result as normal/abnormal. 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 Old healed fractures of the distal tibia and fibular noted.Soft tissues: Unremarkable.IMPRESSION: No acute findings.Electronically signed by: Nikko Santiago MD 11/04/2022 3:10 PM CDT [id number] BEDSIDE [id number] 11:51:00* Test Item Value Reference Range Interpretation Comme nts GLUCOSE BEDSIDE TESTING (karen t code = GLUBED) 79 MG/DL 70-119 N GLUCOSE BEDSIDE [id number] 06:23:00* Test Item Value Reference Range Interpretation Comme nts GLUCOSE BEDSIDE TESTING (karen t code = GLUBED) 80 MG/DL 70-119 N BASIC METABOLIC [id number] 05:12:00* Test Item Value Reference Range Interpretation [...] 2.0 <2.0 indicates None DetectedPerformed At: [facility] [address] [id number] Michael Reeves MD Ph:[phone] GLUCOSE BEDSIDE [id number] 19:51:00* Test Item Value Reference Range Interpretation Comme nts GLUCOSE BEDSIDE TESTING (karen t code = GLUBED) 129 MG/DL 70-119 H OSMOLALITY [id number] 17:56:00* Test Item Value Reference Range Interpretation Comme nts OSMOLALITY SERUM (test code = OSMO) 269 mOsm/kg 275-300 L THYROID STIMULATING [id number] 17:56:00* Test Item Value Reference Range Interpretation Comme nts THYROID STIMULATING HORMONE (test code = TSH) 4.190 mc IU/ML 0.340-4.820 N GLUCOSE BEDSIDE [id number] 15:49:00* Test Item Value Reference Range Interpretation [...] code = VALP) 37.5 mcG/ML 50.0-100.0 L [id number] 14:26:00* Test Item Value Reference Range Interpretation Comme nts AMMONIA (test code = AMM) 29.0 mcMOL/L 11.0-32.0 N GLUCOSE BEDSIDE [id number] 11:51:00* Test Item Value Reference Range Interpretation Comme nts GLUCOSE BEDSIDE TESTING (karen t code = GLUBED) 88 MG/DL 70-119 N GLYCOSYLATED HEMOGLOBIN (HA1C)2022-09-18 06:53:00* Test Item Value Reference Range Interpretation Comme nts GLYCOSYLATED HEMOGLOBIN (HA1 C) (test code = GLYHGB) 5.2 % IS-A1C 4.5-5.6 N ESTIMATED AVERAGE [id number] 06:53:00* Test Item Value Reference Range Interpretation [...] to interpret this result as normal/abnormal. UR [id number] 21:28:00* Test Item Value Reference Range Interpretation Comme nts UR SODIUM RANDOM (test code = JESUSITA) 93 mmol/L 40-200 N UR POTASSIUM RANDOM (test code = KU) 54.8 mmol/L 25-125 N NO ESTABLISHED NORMAL RANGES FOR RANDOM SPECIMENS. UR CHLORIDE RANDOM (test code = CLU) 164 mmol/L 110-150 H UR OSMOLALITY [id number] 21:28:00* Test Item Value Reference Range Interpretation Comme nts UR OSMOLALITY RANDOM (test c ode = OSMOU) 475 mOsm/kg 100-1400 N CBC W/O [id number] 20:05:00* Test Item Value Reference Range Interpretation [...] = MPV) 9.5 fL 6.8-11.2 N LACTIC [id number] 19:35:00* Test Item Value Reference Range Interpretation Comme nts LACTIC ACID (test code = LACT) 1.0 mmol/L 0.4-2.0 N HCG SERUM [id number] 19:31:00* Test Item Value Reference Range Interpretation Comme nts HCG SERUM QUAL (test code = HCGQL) Negative SCREEN NEG - CT HEAD/BRAIN W/O [id number] 18:59:00 [facility] : 1975 Sex: F Patient Name: BHUMIKA JONES Unit No: [id number] EXAMS: CPT CODE: [id number] CT HEAD/BRAIN W/O CONT [id number] Location: H3 CT head, conducted on 09/17/22 at 1837 hours COMPARISON EXAMS:Head CT exam of09/17/22 at 00:06 hours TECHNIQUE: CT examination of the brain was performed without contrast on [facility] scanner. Scanning conducted from skull base to [...] Marie(Abner)(CT) CTDI: DLP: Trnscrpt: 09/17/2022 (1858) NadiyaDAS6 [facility] NAME: JONES [address] PHYS: Valentina [place] [address] : 1975 AGE: 47 SEX: F LOC: JOSHUA 20 PHONE #: [phone] EXAM DATE: 09/17/2022 STATUS: ADM IN FAX #: [phone] RAD #: D/C DT PAGE 1 Signed Report Patient Name: SILAS JONESPCION Unit No: [id number] EXAMS: CPT CODE: [id number] CT HEAD/BRAIN W/O CONT [id number] (Continued) Orig Print D/T: S: 09/17/2022 (1902) DENIZ Lugo NAME: ROBERT[address] PHYS: Valentina Mattson [place] [address] : 1975 AGE: 47 SEX: F LOC: JOSHAU 20 PHONE #: [phone] EXAM DATE: 09/17/2022 STATUS: ADM IN FAX #: [phone] RAD #: D/C DT PAGE 2 Signed ReportURINALYSIS [id number] 16:28:00* Test Item Value Reference Range Interpretation [...] >0 /UL NONE-SQepi DRUGS OF ABUSE SCREEN [id number] 16:28:00* Test Item Value Reference Range Interpretation [...] interpret this result as normal/abnormal. TROP-I HIGH [id number] 16:26:00* Test Item Value Reference Range Interpretation [...] and URLs may vary bymethod. BASIC METABOLIC [id number] 16:25:00* Test Item Value Reference Range Interpretation [...] interpret this result as normal/abnormal. HEPATIC FUNCTION [id number] 16:25:00* Test Item Value Reference Range Interpretation [...] ode = CK) 92 Unit/L 26-192 N [id number] 16:25:00* Test Item Value Reference Range Interpretation Comme nts LIPASE (test code = LIP) 57 Unit/L 114-286 L - CT HEAD/BRAIN W/O [id number] 00:32:00 [facility] : 1975 Sex: F Patient Name: BHUMIKA JONES Unit No: [id number] EXAMS: CPT CODE: [id number] CT HEAD/BRAIN W/O CONT 85845 EXAM: - CT HEAD/BRAIN W/O CONT LOCATION: [...] August CTDI: DLP: Trnscrpt: 09/17/2022 (003) [email or web address] [facility] NAME: BHUMIKA JONES [address] [place] [address] Blvd PHYS: [email or web address] - [place], [place] [address] : 1975 AGE: 47 SEX: F LOC: [facility] PHONE #: [phone] EXAM DATE: 09/16/2022 STATUS: REG ER FAX #: [phone] RAD #: D/C DT PAGE1 Signed Report Patient Name: BHUMIKA JONES Unit No: [id number] EXAMS: CPT CODE: [id number] CT HEAD/BRAIN W/O CONT 78154 (Continued) Orig Print D/T: S: 09/17/2022 (0035) DENIZ Lugo NAME: BHUMIKA JONES [address] [place] [address] PHYS: YASMIN Asim Jack [place] [id number] : 1975 AGE: 47 SEX: F LOC: [facility] PHONE #: [phone] EXAM DATE: 09/16/2022 STATUS: REG ER FAX #: [phone] RAD #: D/C DT PAGE 2 Signed ReportTROP-I HIGH [id number] 00:13:00* Test Item Value Reference Range Interpretation [...] and URLs may vary bymethod. COMPREHENSIVE METABOLIC [id number] 00:11:00* Test Item Value Reference Range Interpretation [...] interpret this result as normal/abnormal. CBC W/AUTO [id number] 23:59:00* Test Item Value Reference Range Interpretation [...] K/mm3 0.0-0.05 N - XR CHEST 1 [id number] 23:34:00 [facility] Refugio: BHUMIKA JONES : 1975 Sex: [place] Line: St: PRE -- Patient Name: BHUMIKA JONES Unit No: [id number] EXAMS: CPT CODE: [id number] XR CHEST 1 V 13706 EXAMINATION: - XR CHEST 1 V CLINICAL [...] By: NadiyaJH12 Orig Print D/T: S: 09/16/2022 (0378) DENIZ Lugo NAME: SILAS JONESPCION [address] [place] [address] Bl PHYS: PATCA.02 - Asim [place], [place] [address] : 1975 AGE: 47 SEX: F LOC: B.ERS PHONE #: [phone] EXAM DATE: 09/16/2022 STATUS: PRE ER FAX #: [phone] RAD NO: DC Dt: PAGE 1 Signed ReportCARBAMAZEPINE (TEGRETOL) 2022-09-15 06:12:00* Test Item Value Reference Range Interpretation Comme nts CARBAMAZEPINE (TEGRETOL) (test code = CARB) 1.5 ug/mL 4.0-12.0 L In conjunction w ith other antiepileptic drugs Therapeutic 4.0 - 8.0 Toxicity 9.0 - 12.0 Carbamazepine alone Therapeutic 8.0 - 12.0 Detection Limit = 2.0 <2.0 indicates None DetectedPerformed At: [facility] [address] [place], [place] [id number] Michael Reeves MD Ph:[phone] VALPROIC ACID (DEPAKENE)2022-09-15 06:12:00* Test Item Value Reference Range Interpretation Comme nts VALPROIC ACID (DEPAKENE) (te st code = VALP) 80.6 mcG/ML 50.0-100.0 N COMPREHENSIVE METABOLIC [id number] 06:00:00* Test Item Value Reference Range Interpretation [...] interpret this result as normal/abnormal. CBC W/AUTO [id number] 05:37:00* Test Item Value Reference Range Interpretation [...] NRBC#) 0.00 K/mm3 0.0-0.05 N GLUCOSE BEDSIDE [id number] 20:03:00* Test Item Value Reference Range Interpretation Comme nts GLUCOSE BEDSIDE TESTING (karen t code = GLUBED) 117 MG/DL 70-119 N DRUGS OF ABUSE SCREEN [id number] 11:42:00* Test Item Value Reference Range Interpretation [...] result as normal/abnormal. - CT HEAD/BRAIN W/O [id number] 11:37:00 [facility] CONROEName: BHUMIKA JONES : 1975 Sex: F Patient Name: BHUMIKA JONES Unit No: [id number] EXAMS: CPT CODE: [id number] CT HEAD/BRAIN W/O CONT 68835 EXAMINATION: - CT HEAD/BRAIN W/O CONT COMPARISON: None HISTORY: Seizure LOCATION CODE: [id number]: CT of the Brain without contrast. Axial [...] MD; Jim Jaimes MD Dictated Date/Time: 09/14/2022 (9172) Technologist: ASUNCION CASTELLANO CTDI: DLP: Trnscrpt: 09/14/2022 (3767) [id number] DENIZ Lugo NAME: BHUMIKA JONES MED[facility] PHYS: Vladimir Menchaca MD [address] [place] [address] : 1975 AGE: 47 SEX: Etta [place] [address] LOC: NEHA 10 PHONE #: [phone] EXAM DATE: 09/14/2022 STATUS: ADM IN FAX #: [phone] RAD #: D/C DT PAGE 1 Signed Report Patient Name: BHUMIKA JONES Unit No: [id number] EXAMS: CPT CODE: [id number] CT HEAD/BRAIN W/O CONT 10580 (Continued) Orig Print D/T: S: 09/14/2022 (1140) DENIZ Lugo NAME: BHUMIKA JONES MEDICAL IMAGING PHYS: Vladimir Menchaca MD [address] [place] [address] : 1975 AGE: 47 SEX: F [place] [address] LOC: NEHA 10 PHONE #: [phone] EXAM DATE: 09/14/2022 STATUS: ADM IN FAX #: [phone] RAD #: D/C DT PAGE 2 Signed Report PT AND [id number] 06:51:00* Test Item Value Reference Range Interpretation [...] AVOIDED DUE TO POSSIBLE HEPARINCONTAMINATION HCG SERUM [id number] 06:51:00* Test Item Value Reference Range Interpretation [...] CK) 268 Unit/L 26-192 H CBC W/AUTO [id number] 03:43:00* Test Item Value Reference Range Interpretation [...] = NRBC#) 0.00 K/mm3 0.0-0.05 N URINALYSIS [id number] 03:41:00* Test Item Value Reference Range Interpretation [...] RARE /LPF NONE - XR CHEST 2 [id number] 02:06:00 [facility] CONROEName: BHUMIKA JONES : 1975 Sex: F FAX: Sulmean Carvalho RUTH [phone] [place] Line: E St: REG Patient Name: BHUMIKA JONES Unit No: [id number] EXAMS: CPT CODE: [id number] XR CHEST 2 V 02554 EXAM: - XR CHEST 2 V HISTORY: [...] D/T: S: 09/14/2022 (020) DENIZ Lugo NAME: ROB[address] PHYS: GISEL - Deven,Suleman Lugo, [place] [address] : 1975 AGE: 47 SEX: F LOC: MARCOS PHONE #: [phone] EXAM DATE: 09/14/2022 STATUS: REG ERFAX #: [phone] RAD NO: DC Dt: PAGE 1 Signed ReportCOMPREHENSIVE METABOLIC [id number] 12:49:00* Test Item Value Reference Range Interpretation [...] used to interpret this result as normal/abnormal. [id number] 12:49:00* Test Item Value Reference Range Interpretation Comme nts MAGNESIUM (test code = MAG) 1.7 MG/DL 1.6-2.6 N CBC W/AUTO [id number] 12:36:00* Test Item Value Reference Range Interpretation [...] RARE /LPF NONE DRUGS OF ABUSE SCREEN [id number] 00:33:00* Test Item Value Reference Range Interpretation [...] 300 ng/mL UA RFLX MICR CULT IF [id number] 00:30:00* Test Item Value Reference Range Interpretation [...] culture: Suprapubic PainSpecimen Description: CLEAN CATCHBASIC METABOLIC [id number] 00:18:00* Test Item Value Reference Range Interpretation [...] 8.9 mg/dl 8.0-10.5 N HEPATIC FUNCTION PANEL [id number] 00:18:00* Test Item Value Reference Range Interpretation [...] ALKP) 113 Units/L 50.0-136.0 N HCG SERUM [id number] 00:18:00* Test Item Value Reference Range Interpretation Comme nts HCG SERUM QUAL (test code = HCGQL) NEGATIVE NEGATIVE [id number] 00:18:00* Test Item Value Reference Range Interpretation Comme nts ALCOHOL (test code = ALC) 0.00 gm/dL 0.00-0.00 N ETHYL ALCOHOL MIRELLA HARRELL - INTERPRETATION: 0.050 GM/DL - NOT INTOXICATED 0.100 GM/DL - INTOXICATED 0.350-0.450 GM/DL - SEVERELY INTOXICATED 0.550 GM/DL- FATAL INTOXICATION Coronavirus 2019 nCoV Neippnv6932-76-87 00:09:00* Test Item Value Reference Range Interpretation Comme nts Coronavirus 2019 nCoV Bedside (test code = [id number]) Negative NEGATIVE Negative results should be treated as presumptive and ifinconsistent with clinical signs and symptoms, or necessaryfor patient management, should be tested with an alternativemolecular assay. Negative results do not preclude AMLT-SrH-2rxuypdret and should not be used as the sole basis forpatient management decisions. Negative results should beconsidered in the context of a patient's recent exposures,history, presence of clinical signs and symptoms consistentwith COVID-19. CBC W/AUTO [id number] 23:58:00* Test Item Value Reference Range Interpretation [...] X10 3uL 0.00-0.01 N COMP. METABOLIC PANEL (35461)2022-09-07 02:12:41* Test Item Value Reference Range Interpretation Comme nts NA (test code = 5671607872) 133 mmol/L 135-145 L K (test code = 9915234224) 4.4 mmol/L 3.5-5.0 CL (test code = 9442766535) 102 mmol/L 98-108 CO2 TOTAL (test code = 9627438560) 25 mmol/L 23-31 AGAP (test code = 0617664135) 6 2-16 BUN (test code = 6405129928) 22 mg/dL 7-23 GLUCOSE (test code = 2181291513) 97 mg/dL 70-110 CREATININE (test code = 6043089378) 0.40 mg/dL 0.50-1.04 L TOTAL BILI (test code = 3814963641) 0.3 mg/dL 0.1-1.1 CALCIUM (test code = 9144428910) 8.9 mg/dL 8.6-10.6 T PROTEIN (test code = 2853001895) 7.7 g/dL 6.3-8.2 ALBUMIN (test code = 0614761716) 4.0 g/dL 3.5-5.0 ALK PHOS (test code = 8139862876) 104 U/L 34-122 ALTv (test code = 1742-6) 15 U/L 5-35 AST(SGOT) (test code = 0057146717) 22 U/L 13-40 eGFR (test code = 3440872321) 170.4 mL/min/1.73m2 HANNAH (test code = HANNAH) [...] imaging tests). Lab Interpretation (test code = 78114-3) Abnormal [facility] WITH [id number] 02:01:20* Test Item Value Reference Range Interpretation Comme nts WBC (test code = 6690-2) 6.17 See_Comment [Automated Sprout] The system which generated this result transmitted reference range: 4.30 - 11.10 10*3/?L. The reference range was not used to interpret this result as normal/abnormal. RBC (test code = 789-8) 3.73 See_Comment L [Automated Sprout] The system which generated this result transmitted [...] 32.9 g/dL 31.6-35.1 RDW-SD (test code = 47537-6) 48.1 fL 39.0-49.9 RDW-CV (test code = 788-0) 14.7 % 12.0-15.5 PLT (test code = 777-3) 272 See_Comment [Automated messa ge] The system which generated this result transmitted reference range: 166 - 358 10*3/?L. The reference range was not used to interpret this result as normal/abnormal. MPV (test code = 16793-4) 9.6 fL 9.5-12.9 NRBC/100 WBC (test code = 0934683463) 0.0 See_Comment [Automated [employer] ssage] The system which generated this result transmitted reference range: 0.0 - 10.0 /100 WBCs. The reference range was not used to interpret this result as normal/abnormal. NRBC x10^3 (test code = 0550460398) See_Comment [Automated [employer]a ge] The system which generated this result transmitted reference range: 10*3/?L. The reference range was not used to interpret this result as normal/abnormal. GRAN MAT (NEUT) % (test code = 770-8) 42.2 % IMM GRAN % (test code = 4432812911) 0.20 % LYMPH % (test code = 736-9) 38.2 % MONO % (test code = 5905-5) 12.6 % EOS % (test code = 713-8) 5.8 % BASO % (test code = 706-2) 1.0 % GRAN MAT x10^3(ANC) (test code = 7303874549) 2.60 10*3/uL 1.88-7.09 IMM GRAN x10^3 (test code = 9071985113) 0.00-0.06 LYMPH x10^3 (test code = 731-0) 2.36 10*3/uL 1.32-3.29 MONO x10^3 (test code = 742-7) 0.78 10*3/uL 0.33-0.92 EOS x10^3 (test code = 711-2) 0.36 10*3/uL 0.03-0.39 BASO x10^3 (test code = 704-7) 0.06 10*3/uL 0.01-0.07 Lab Interpretation (test code = 59331-7) Abnormal [facility] by RT-PCR (HIGH RISK) 2020-08-19 00:00:00* Test Item Value Reference Range Interpretation Comme nts SARS-CoV-2 INTERPRETATION (t est code = 91850) NEGATIVE SOURCE (test code = 03534) NOT SPECIFIED Henry Quiles YxpxiyYKQD-PiV-0 (COVID-19) by RT-PCR (HIGH RISK)2020-08-19 00:00:00* Test Item Value Reference Range Interpretation Comme nts SARS-CoV-2 INTERPRETATION (t est code = 37349) NEGATIVE SOURCE (test code = 66524) NOT SPECIFIED Henry F UwjxvxBGYH-NzP-6 (COVID-19) by RT-PCR (HIGH RISK)2020-08-19 00:00:00* Test Item Value Reference Range Interpretation Comme nts SARS-CoV-2 INTERPRETATION (t est code = 82420) NEGATIVE SOURCE (test code = 69749) NOT SPECIFIED Henry F AustinHPV HIGH RISK WITH GENOTYPE, [id number] 00:00:00* Test Item Value Reference Range Interpretation Comme [facility] HPV HIGH RISK INTERP (test c ode = 22662) NEGATIVE HPV 16 (test code = 73243) NEGATIVE HPV 18 (test code = 83438) NEGATIVE HPV, HR, OTHER GENOTYPES (te st code = 73140) NEGATIVE Henry F AustinPAP TEST, THINPREP, [id number] 00:00:00* Test Item Value Reference Range Interpretation Comme nts SOURCE: (test code = 8001) Cervical/Endocervical SLIDES: (test code = 8011) 1 LMP: (test code = 8021) 06/2017 SPECIMEN ADEQUACY: (test code = 63999) (NOTE) INTERPRETATION: (test code = 85914) NILM/NO EPITH. ABNORMALITY;SEE BELOW ENVIRONMENTAL ASSISTANT: (test code = 8101) [place], [place](ASCP) IAC LOCATION: (test code = 88724) (NOTE) CPT: (test code = 8140) (NOTE) Henry Quiles AustinHPV HIGH RISK WITH GENOTYPE, [id number] 00:00:00* Test Item Value Reference Range Interpretation Comme nts HPV HIGH RISK INTERP (test c ode = 77521) NEGATIVE HPV 16 (test code = 40209) NEGATIVE HPV 18 (test code = 58703) NEGATIVE HPV, HR, OTHER GENOTYPES (te st code = 38302) NEGATIVE Henry Quiles AustinPAP TEST, THINPREP, [id number] 00:00:00* Test Item Value Reference Range Interpretation Comme nts SOURCE: (test code = 8001) Cervical/Endocervical SLIDES: (test code = 8011) 1 LMP: (test code = 8021) 06/2017 SPECIMEN ADEQUACY: (test code = 89357) (NOTE) INTERPRETATION: (test code = 95371) NILM/NO EPITH. ABNORMALITY;SEE BELOW ENVIRONMENTAL ASSISTANT: (test code = 8101) [place], [place](ASCP) IAC LOCATION: (test code = 88842) (NOTE) CPT: (test code = 8140) (NOTE) Henry Quiles AustinHPV HIGH RISK WITH GENOTYPE, [id number] 00:00:00* Test Item Value Reference Range Interpretation Comme nts HPV HIGH RISK INTERP (test c ode = 59032) NEGATIVE HPV 16 (test code = 53779) NEGATIVE HPV 18 (test code = 79027) NEGATIVE HPV, HR, OTHER GENOTYPES (te st code = 62082) NEGATIVE Henry ContrerasPAP TEST, THINPREP, [id number] 00:00:00* Test Item Value Reference Range Interpretation Comme nts SOURCE: (test code = 8001) Cervical/Endocervical SLIDES: (test code = 8011) 1 LMP: (test code = 8021) 06/2017 SPECIMEN ADEQUACY: (test code = 28051) (NOTE) INTERPRETATION: (test code = 74761) NILM/NO EPITH. ABNORMALITY;SEE BELOW ENVIRONMENTAL ASSISTANT: (test code = 8101) [facility] IAC LOCATION: (test code = 83291) (NOTE) CPT: (test code = 8140) (NOTE) Henry ContrerasCT HEAD WO [id number] 22:34:12Impression: 1. ?No acute intracranial process. 2. [...] he patient. Please correlate with history and physicalexamination.[facility]XR CERVICAL SPINE 2 [id number] 22:29:40No acute osseous abnormality. Preliminary Report Dictated [...] reviewed this study and agree with theabove report.[facility] HospitalCB WITH [id number] 21:46:00* Test Item Value Reference Range Interpretation [...] 32.2 g/dL 31.6-35.1 RDW-SD (test code = 40555-1) 45.1 fL 39-49.9 RDW-CV (test code = 788-0) 14.6 % 12-15.5 PLT (test code = 777-3) See_Comment L [Automated messa ge] The system which generated this result transmitted reference range: 166 - 358 10*3/?L. The reference range was not used to interpret this result as normal/abnormal. MPV (test code = 53433-8) 9.0 fL 9.5-12.9 L NRBC/100 WBC (test code = 2839495485) See_Comment [Automated me ssage] The system which generated this result transmitted reference range: 0.0 - 10.0 /100 WBCs. The reference range was not used to interpret this result as normal/abnormal. NRBC x10^3 (test code = 7998823864) <0.01 See_Comment [Automated messa ge] The system which generated this result transmitted reference range: 10*3/?L. The reference range was not used to interpret this result as normal/abnormal. GRAN MAT (NEUT) % (test code = 770-8) 51.3 % IMM GRAN % (test code = 1722202541) 0.40 % LYMPH % (test code = 736-9) 24.4 % MONO % (test code = 5905-5) 23.1 % EOS % (test code = 713-8) 0.4 % BASO % (test code = 706-2) 0.4 % GRAN MAT x10^3(ANC) (test code = 3889043235) 2.48 10*3/uL 1.88-7.09 IMM GRAN x10^3 (test code = 6571724960) <0.03 0-0.06 LYMPH x10^3 (test code = 731-0) 1.18 10*3/uL 1.32-3.29 L MONO x10^3 (test code = 742-7) 1.12 10*3/uL 0.33-0.92 H EOS x10^3 (test code = 711-2) <0.03 0.03-0.39 L BASO x10^3 (test code = 704-7) <0.03 0.01-0.07 Lab Interpretation (test code = 09321-1) Abnormal [facility] CERV[facility] SP[facility] 2 [id number] 03:28:03No acute osseous abnormality. Preliminary Report Dictated [...] this study and agree withthe above report. [facility] HospitalValproic Acid Bzewy0308-30-37 08:03:22* Test Item Value Reference Range Interpretation Comme nts Valproic Acid Level (test co de = Valproic Acid Level) 57.6 ug/mL(g) 50.0-100.0 Hemoglobin [id number] 09:36:00* Test Item Value Reference Range Interpretation Comme nts Hemoglobin A1c (test code = Hemoglobin A1c) 5.0 % 4.8-5.9 Non Diabetic 4.8-5.9%Diabetic <7.0% CT Shoulder w/o Contrast Lysz1502-21-84 16:49:13Patient: BHUMIKA JONES Date/Time01/09/2019 16:14 CDTReason for [...] Adam FSigned (Electronic Signature): 01/09/2019 4:49 pmRPR Jffqtepipaq8078-09-87 21:33:20* Test Item Value Reference Range Interpretation [...] 04-23-2020 N XR Shoulder Complete 2+ Views [id number] 15:41:25Patient: BHUMIKA JONES Date/Time01/07/2019 15:25 CDTReason for [...] CSigned (Electronic Signature): 01/07/2019 3:41 pmThyroid Stimulating Kewhtcc3264-59-79 03:07:04* Test Item Value Reference Range Interpretation Comme nts TSH (test code = TSH) 9.650 mIU/mL 0.270-4.200 H Lipid Zrgdv2943-11-61 03:07:03* Test Item Value Reference Range Interpretation Comme nts Cholesterol Total (test code = Cholesterol Total) 199 mg/dL 0-200 RISK OF HEART DISEASEPublished by [place] Heart Association Analyte Optimal Borderline Increased RiskCHOL [...] is LDL/HDL Ratio=LDL Calc/HDL Chol HCG Qualitative Qinyl5773-82-84 02:33:13* Test Item Value Reference Range Interpretation Comme nts HCG, Serum Qual (test code = HCG, Serum Qual) Negative Lot # (test code = Lot #) [id number] N Expiration Dt (test code = Expiration Dt) 2020-04-23 N Neg Control (test code = Neg Control) Negative Pos Control (test code = Pos Control) Positive Internal QC (test code = Int ernal QC) Acceptable Drugs of Abuse Urine [id number] 18:58:11* Test Item Value Reference Range Interpretation [...] = Cannabinoid Screen Ur) Negative Negative Alcohol Ufakb2249-93-66 18:47:34* Test Item Value Reference Range Interpretation Comme nts Ethanol Level (test code = Ethanol Level) <0.00 g/dL 0.00-0.01 Intoxicated 0.08 0 g/dL or more Ethanol Inst (test code = Ethanol Inst) <0 N Comprehensive Metabolic Cylqx8952-61-22 18:47:33* Test Item Value Reference Range Interpretation [...] A/G Ratio) 1.0 ratio N Comprehensive Metabolic Pnhoa2458-97-51 18:47:33* Test Item Value Reference Range Interpretation [...] is not provided, and the patient is -[place], multiply by 1.212. If sex is not [...] the National Kidney Foundation, http://nkdep.nih.gov Comprehensive Metabolic Zndvr6530-96-95 18:47:33* Test Item Value Reference Range Interpretation [...] is not provided, and the patient is -[place], multiply by 1.212. If sex is not [...] is not provided, and the patient is -[place], multiply by 1.212. If sex is not [...] Kidney Foundation, http://nkdep.nih.gov Complete Blood Count with Jliyzjosrtqg0586-46-13 18:15:23* Test Item Value Reference Range Interpretation [...] code = IPF) 0 % N Automated Udvnxwofwgso1498-42-07 18:15:23* Test Item Value Reference Range Interpretation Comme nts Neutro Auto (test code = Sunny tro Auto) 42.1 % 36.0-70.0 Lymph Auto (test code = Lymph Auto) 40.0 % 12.0-44.0 [place] Auto (test code = [place] Auto) 12.2 % 0.0-11.0 H Eos, Auto (test code = Eos, Auto) 4.9 % 0.0-7.0 Basophil Auto (test code = B asophil Auto) 0.6 % 0.0-2.0 Neutro Absolute (test code = Neutro Absolute) 2.2 x10 1.6-7.4 Lymph Absolute (test code = Lymph Absolute) 2.06 x10 .50-4.60 [place] Absolute (test code = M richa Absolute) .63 x10 .00-1.20 Eos Absolute (test code = Eo s Absolute) 0.25 x10 0.00-0.74 Baso Absolute (test code = B aso Absolute) 0.03 x10 0.00-0.21 IG Rcqmi5101-34-65 18:15:23* Test Item Value Reference Range Interpretation Comme nts IG (test code = IG) 0.2 % 0.0-5.0 IG Abs (test code = IG Abs) 0 x10 N VALPROIC [id number] 00:00:00* Test Item Value Reference Range Interpretation Comme nts VALPROIC ACID (test code = 3025) 69.8 UG/ML Henry Quiles AustinVALPROIC [id number] 00:00:00* Test Item Value Reference Range Interpretation Comme nts VALPROIC ACID (test code = 3025) 69.8 UG/ML Henry Quiles AustinVALPROIC [id number] 00:00:00* Test Item Value Reference Range Interpretation Comme nts VALPROIC ACID (test code = 3025) 69.8 UG/ML Henry Quiles AustinURINE CULTURE, NO [id number] 00:00:00* Test Item Value Reference Range Interpretation Comme nts URINE CULTURE, NO SENS (test code = 67693) SPECIMEN NUMBER: [id number] Henry Quiles AustinURINE CULTURE, NO [id number] 00:00:00* Test Item Value Reference Range Interpretation Comme nts URINE CULTURE, NO SENS (test code = 21188) SPECIMEN NUMBER: [id number] Henry Quiles AustinURINE CULTURE, NO [id number] 00:00:00* Test Item Value Reference Range Interpretation Comme nts URINE CULTURE, NO SENS (test code = 46303) SPECIMEN NUMBER: [id number] Henry Quiles AustinIRON BINDING CAPACITY AND IRON AND % [id number] 00:00:00* Test Item Value Reference Range Interpretation Comme nts IRON, SERUM (test code = 2222) 42 UG/DL UNSATURATED IBC (test code = 69695) 279 UG/DL CALC TOTAL IBC (test code = 7) 321 UG/DL CALC % IRON SAT (test code = 9) 13 % Henry Quiles EzgzqzOOAAFHLE2285-23-83 00:00:00* Test Item Value Reference Range Interpretation Comme nts FERRITIN (test code = 2075) 15 NG/ML Henry Quiles LojqooNAJLDVRTMDP8845-00-52 00:00:00* Test Item Value Reference Range Interpretation Comme nts TRANSFERRIN (test code = 4936) 269 MG/DL Henry Quiles AustinFOLIC [id number] 00:00:00* Test Item Value Reference Range Interpretation Comme nts FOLIC ACID (test code = 2695) 5.4 UG/L Henry Quiles AustinIRON BINDING CAPACITY AND IRON AND % [id number] 00:00:00* Test Item Value Reference Range Interpretation Comme nts IRON, SERUM (test code = 2) 42 UG/DL UNSATURATED IBC (test code = 48500) 279 UG/DL CALC TOTAL IBC (test code = 7) 321 UG/DL CALC % IRON SAT (test code = 9) 13 % Henry Quiles QezhurOLCEPAXY8972-99-56 00:00:00* Test Item Value Reference Range Interpretation Comme nts FERRITIN (test code = 2075) 15 NG/ML Henry Quiles WdiqvuZCAMCWYYZZT9279-17-07 00:00:00* Test Item Value Reference Range Interpretation Comme nts TRANSFERRIN (test code = 4936) 269 MG/DL Henry Quiles AustinFOLIC [id number] 00:00:00* Test Item Value Reference Range Interpretation Comme nts FOLIC ACID (test code = 2695) 5.4 UG/L Henry Quiles AustinIRON BINDING CAPACITY AND IRON AND % VNUHRCOOBB8900-13-53 00:00:00* Test Item Value Reference Range Interpretation Comme nts IRON, SERUM (test code = 2222) 42 UG/DL UNSATURATED IBC (test code = 07841) 279 UG/DL CALC TOTAL IBC (test code = 2077) 321 UG/DL CALC % IRON SAT (test code = 2079) 13 % Henry Quiles RjlxfdFKWYGMVZ1082-78-84 00:00:00* Test Item Value Reference Range Interpretation Comme nts FERRITIN (test code = 2075) 15 NG/ML Henry Quiles CqlnfnRKAEZUWRWKI3020-97-39 00:00:00* Test Item Value Reference Range Interpretation Comme nts TRANSFERRIN (test code = 4936) 269 MG/DL Henry Quiles AustinFOLIC JJKN8539-88-00 00:00:00* Test Item Value Reference Range Interpretation Comme nts FOLIC ACID (test code = 2695) 5.4 UG/L Henry Quiles AustinCULTURE, URINE [ADDED]2018-06-12 00:00:00* Test Item Value Reference Range Interpretation Comme nts CULTURE, URINE (test code = 48384) SPECIMEN NUMBER: [id number] Henry Quiles AustinCULTURE, URINE [ADDED]2018-06-12 00:00:00* Test Item Value Reference Range Interpretation Comme nts CULTURE, URINE (test code = 82787) SPECIMEN NUMBER: [id number] Henry Quiles AustinCULTURE, URINE [ADDED]2018-06-12 00:00:00* Test Item Value Reference Range Interpretation Comme nts CULTURE, URINE (test code = 61266) SPECIMEN NUMBER: [id number] Henry Quiles AustinCBC W/AUTO [id number] 00:00:00* Test Item Value Reference Range Interpretation [...] = 1015) 184 K/UL Henry ContrerasCOMPREHENSIVE METABOLIC [id number] 00:00:00* Test Item Value Reference Range Interpretation Comme nts GLUCOSE (test code = 2217) 86 MG/DL BUN (test code = 2208) 16 MG/DL CREATININE (test code = 2214) 0.45 MG/DL eGFR AMER. (test cod e = 98384) 141 ML/MIN/1.73 eGFR NON- AMER. (test code = 60538) 122 ML/MIN/1.73 CALC BUN/CREAT (test code = [...] code = 2219) 17 U/L Henry ContrerasVALPROIC [id number] 00:00:00* Test Item Value Reference Range Interpretation Comme nts VALPROIC ACID (test code = 3025) 100.9 UG/ML Henry ContrerasCBC W/AUTO [id number] 00:00:00* Test Item Value Reference Range Interpretation [...] = 1015) 184 K/UL Henry ContrerasCOMPREHENSIVE METABOLIC [id number] 00:00:00* Test Item Value Reference Range Interpretation Comme nts GLUCOSE (test code = 2217) 86 MG/DL BUN (test code = 2208) 16 MG/DL CREATININE (test code = 2214) 0.45 MG/DL eGFR AMER. (test cod e = 13004) 141 ML/MIN/1.73 eGFR NON- AMER. (test code = 39997) 122 ML/MIN/1.73 CALC BUN/CREAT (test code = [...] code = 2219) 17 U/L Henry ContrerasVALPROIC [id number] 00:00:00* Test Item Value Reference Range Interpretation Comme nts VALPROIC ACID (test code = 3025) 100.9 UG/ML Henry ContrerasCBC W/AUTO [id number] 00:00:00* Test Item Value Reference Range Interpretation [...] = 1015) 184 K/UL Henry ContrerasCOMPREHENSIVE METABOLIC [id number] 00:00:00* Test Item Value Reference Range Interpretation Comme nts GLUCOSE (test code = 2217) 86 MG/DL BUN (test code = 2208) 16 MG/DL CREATININE (test code = 2214) 0.45 MG/DL eGFR AMER. (test cod e = 54441) 141 ML/MIN/1.73 eGFR NON- AMER. (test code = 70947) 122 ML/MIN/1.73 CALC BUN/CREAT (test code = [...] code = 2219) 17 U/L Henry ContrerasVALPROIC [id number] 00:00:00* Test Item Value Reference Range Interpretation Comme nts VALPROIC ACID (test code = 3025) 100.9 UG/ML Henry ContrerasPAP TEST, THINPREP, [id number] 00:00:00* Test Item Value Reference Range Interpretation Comme nts SOURCE: (test code = 8001) Cervical/Endocervical SLIDES: (test code = 8011) 1 LMP: (test code = 8021) 03/2017 SPECIMEN ADEQUACY: (test code = 61616) (NOTE) INTERPRETATION: (test code = 34589) NO EPITHELIAL ABNORMALITY SEE BELOW ENVIRONMENTAL ASSISTANT: (test code = 8101) KANA Merida(ASCP)IAC LOCATION: (test code = 90497) (NOTE) CPT: (test code = 8140) (NOTE) Henry ContrerasHPV HIGH RISK WITH GENOTYPE, [id number] 00:00:00* Test Item Value Reference Range Interpretation Comme nts HPV HIGH RISK INTERP (test c ode = 20198) NEGATIVE HPV 16 (test code = 81450) NEGATIVE HPV 18 (test code = 01300) NEGATIVE HPV, HR, OTHER GENOTYPES (te st code = 93729) NEGATIVE Henry ContrerasPAP TEST, THINPREP, [id number] 00:00:00* Test Item Value Reference Range Interpretation Comme nts SOURCE: (test code = 8001) Cervical/Endocervical SLIDES: (test code = 8011) 1 LMP: (test code = 8021) 03/2017 SPECIMEN ADEQUACY: (test code = 39230) (NOTE) INTERPRETATION: (test code = 30067) NO EPITHELIAL ABNORMALITY SEE BELOW ENVIRONMENTAL ASSISTANT: (test code = 8101) KANA Merida(ASCP)IAC LOCATION: (test code = 36102) (NOTE) CPT: (test code = 8140) (NOTE) Henry ContrerasHPV HIGH RISK WITH GENOTYPE, [id number] 00:00:00* Test Item Value Reference Range Interpretation Comme nts HPV HIGH RISK INTERP (test c ode = 26699) NEGATIVE HPV 16 (test code = 66919) NEGATIVE HPV 18 (test code = 80092) NEGATIVE HPV, HR, OTHER GENOTYPES (te st code = 76901) NEGATIVE Henry ContrerasPAP TEST, THINPREP, [id number] 00:00:00* Test Item Value Reference Range Interpretation Comme nts SOURCE: (test code = 8001) Cervical/Endocervical SLIDES: (test code = 8011) 1 LMP: (test code = 8021) 03/2017 SPECIMEN ADEQUACY: (test code = 96830) (NOTE) INTERPRETATION: (test code = 65063) NO EPITHELIAL ABNORMALITY SEE BELOW ENVIRONMENTAL ASSISTANT: (test code = 8101) KANA Merida(ASCP)IAC LOCATION: (test code = 05009) (NOTE) CPT: (test code = 8140) (NOTE) Henry ContrerasHPV HIGH RISK WITH GENOTYPE, [id number] 00:00:00* Test Item Value Reference Range Interpretation Comme nts HPV HIGH RISK INTERP (test c ode = 89419) NEGATIVE HPV 16 (test code = 63077) NEGATIVE HPV 18 (test code = 16605) NEGATIVE HPV, HR, OTHER GENOTYPES (te st code = 26963) NEGATIVE Henry ContrerasHIV AB/AG COMBO RFLX [id number] 00:00:00* Test Item Value Reference Range Interpretation Comme nts HIV 1/2 4TH GEN, RFLX CONF ( test code = 3514) NON-REACTIVE Henry Quiles AustinGC AND CHLAMYDIA AMPLIFIED, [id number] 00:00:00* Test Item Value Reference Range Interpretation Comme nts GONORRHEA, TMA (test code = 53051) NEGATIVE CHLAMYDIA, TMA (test code = 57088) NEGATIVE Henry Quiles AustinGC AND CHLAMYDIA AMPLIFIED, [id number] 00:00:00* Test Item Value Reference Range Interpretation Comme nts GONORRHEA, TMA (test code = 01110) NEGATIVE CHLAMYDIA, TMA (test code = 54683) NEGATIVE Henry ContrerasHIV AB/AG COMBO RFLX [id number] 00:00:00* Test Item Value Reference Range Interpretation Comme nts HIV 1/2 4TH GEN, RFLX CONF ( test code = 3514) NON-REACTIVE Henry ContrerasGC AND CHLAMYDIA AMPLIFIED, [id number] 00:00:00* Test Item Value Reference Range Interpretation Comme nts GONORRHEA, TMA (test code = 48262) NEGATIVE CHLAMYDIA, TMA (test code = 66454) NEGATIVE Henry ContrerasHIV AB/AG COMBO RFLX [id number] 00:00:00* Test Item Value Reference Range Interpretation Comme nts HIV 1/2 4TH GEN, RFLX CONF ( test code = 3514) NON-REACTIVE Henry ContrerasLIPID [id number] 00:00:00* Test Item Value Reference Range Interpretation Comme nts CHOLESTEROL (test code = 2210) 186 MG/DL TRIGLYCERIDES (test code = 2232) 131 MG/DL HDL CHOLESTEROL (test code = 2220) 67 MG/DL CALC LDL CHOL (test code = 2237) 93 MG/DL RISK RATIO LDL/HDL (test cod e = 2238) 1.39 RATIO Henry ContrerasCBC W/AUTO [id number] 00:00:00* Test Item Value Reference Range Interpretation [...] code = 1015) 152 K/UL Henry ContrerasHEMOGLOBIN [id number] 00:00:00* Test Item Value Reference Range Interpretation Comme shaina HEMOGLOBIN A1c (test code = 43607) 5.2 % Henry [id number] 00:00:00* Test Item Value Reference Range Interpretation Comme nts TSH (test code = 2821) 2.020 UIU/ML Henry ContrerasCOMPREHENSIVE METABOLIC [id number] 00:00:00* Test Item Value Reference Range Interpretation Comme nts GLUCOSE (test code = 2217) 90 MG/DL BUN (test code = 2208) 21 MG/DL CREATININE (test code = 2214) 0.42 MG/DL eGFR AMER. (test cod e = 65349) 145 ML/MIN/1.73 eGFR NON- AMER. (test code = 84247) 126 ML/MIN/1.73 CALC BUN/CREAT (test code = [...] code = 2219) <5 U/L Henry ContrerasLIPID [id number] 00:00:00* Test Item Value Reference Range Interpretation Comme nts CHOLESTEROL (test code = 2210) 186 MG/DL TRIGLYCERIDES (test code = 2232) 131 MG/DL HDL CHOLESTEROL (test code = 2220) 67 MG/DL CALC LDL CHOL (test code = 2237) 93 MG/DL RISK RATIO LDL/HDL (test cod e = 2238) 1.39 RATIO Henry ContrerasCBC W/AUTO [id number] 00:00:00* Test Item Value Reference Range Interpretation [...] code = 1015) 152 K/UL Henry ContrerasHEMOGLOBIN [id number] 00:00:00* Test Item Value Reference Range Interpretation Comme nts HEMOGLOBIN A1c (test code = 54501) 5.2 % Henry [id number] 00:00:00* Test Item Value Reference Range Interpretation Comme nts TSH (test code = 2821) 2.020 UIU/ML Henry ContrerasCOMPREHENSIVE METABOLIC [id number] 00:00:00* Test Item Value Reference Range Interpretation Comme nts GLUCOSE (test code = 2217) 90 MG/DL BUN (test code = 2208) 21 MG/DL CREATININE (test code = 2214) 0.42 MG/DL eGFR AMER. (test cod e = 52446) 145 ML/MIN/1.73 eGFR NON- AMER. (test code = 13641) 126 ML/MIN/1.73 CALC BUN/CREAT (test code = [...] code = 2219) <5 U/L Henry ContrerasLIPID [id number] 00:00:00* Test Item Value Reference Range Interpretation Comme nts CHOLESTEROL (test code = 2210) 186 MG/DL TRIGLYCERIDES (test code = 2232) 131 MG/DL HDL CHOLESTEROL (test code = 2220) 67 MG/DL CALC LDL CHOL (test code = 2237) 93 MG/DL RISK RATIO LDL/HDL (test cod e = 2238) 1.39 RATIO Henry ContrerasCBC W/AUTO [id number] 00:00:00* Test Item Value Reference Range Interpretation [...] code = 1015) 152 K/UL Henry ContrerasHEMOGLOBIN [id number] 00:00:00* Test Item Value Reference Range Interpretation Comme nts HEMOGLOBIN A1c (test code = 28006) 5.2 % Henry [id number] 00:00:00* Test Item Value Reference Range Interpretation Comme nts TSH (test code = 2821) 2.020 UIU/ML Henry ContrerasCOMPREHENSIVE METABOLIC [id number] 00:00:00* Test Item Value Reference Range Interpretation Comme nts GLUCOSE (test code = 2217) 90 MG/DL BUN (test code = 2208) 21 MG/DL CREATININE (test code = 2214) 0.42 MG/DL eGFR AMER. (test cod e = 64420) 145 ML/MIN/1.73 eGFR NON- AMER. (test code = 81361) 126 ML/MIN/1.73 CALC BUN/CREAT (test code = [...] Notes Date/Time Note Provider Source Henry Contreras [facility]2024-06-04 04:23:47 PATIENT OPEN ORDERS Code System Description Frequency Occurrences Priority [place] [address]-7 [facility] EKG study ONE TIME 0 Stat November 24, 2023 12:29:00 AM [facility] MAGALIE BRAVO [id number] on November 24, 2023 12:29:00 AM [facility] SCHEDULED PROCEDURES Code System Description Status Scheduled Date Updated By Patient scheduled procedure information is not available. 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 Status Start Date End Date Update d By NO PCP Referring normal November 24, 2023 2:17:11 AM [facility] November 25, 2023 12:04:00 AM [facility] [id number] on November 24, 2023 2:17:11 AM [facility] MAGALIE BRAVO Attending normal November 24, 2023 2:17:11 AM [facility] November 25, 2023 12:04:00 AM [facility] [id number] on November 24, 2023 2:17:11 AM [facility] MAGALIE BRAVO Admitting normal November 24, 2023 2:17:11 AM [facility] November 25, 2023 12:04:00 AM [facility] [id number] on November 24, 2023 2:17:11 AM [facility] NO PCP PCP normal November 24, 2023 2:17:11 AM [facility] November 25, 2023 12:04:00 AM [facility] [id number] on November 24, 2023 2:17:11 AM [facility]2024-06-03 00:00:00 Henry Goldberg [facility]2024-06-02 19:05:13 PATIENT OPEN ORDERS Code System Description Frequency Occurrences Priority [place] [address]-5 [facility] EKG study ONE TIME 0 Stat November 24, 2023 12:29:00 AM [facility] MAGALIE BRAVO [id number] on November 24, 2023 12:29:00 AM [facility] SCHEDULED PROCEDURES Code System Description Status Scheduled Date Updated By Patient scheduled procedure information is not available. 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 Status Start Date End Date Update d By NO PCP Referring normal November 24, 2023 2:17:11 AM [facility] November 25, 2023 12:04:00 AM [facility] [id number] on November 24, 2023 2:17:11 AM [facility] MAGALIE BRAVO Attending normal November 24, 2023 2:17:11 AM [facility] November 25, 2023 12:04:00 AM [facility] [id number] on November 24, 2023 2:17:11 AM [facility] MAGALIE BRAVO Admitting normal November 24, 2023 2:17:11 AM [facility] November 25, 2023 12:04:00 AM [facility] [id number] on November 24, 2023 2:17:11 AM [facility] NO PCP PCP normal November 24, 2023 2:17:11 AM [facility] November 25, 2023 12:04:00 AM [facility] [id number] on November 24, 2023 2:17:11 AM [facility]2024-06-01 21:59:[address] [address] DIAGNOSTIC IMAGING REPORT Patient Name: JONES, CONCEPTION Date of Service: 11-23-2023 Age: 48 Sex: F Order #: [id number] Room: [facility] : 1975 X-Ray Number: [id number] Hospital Number: [id number] Admitting Physician: LAWRENCE MEJIAS Ordering Physician: LAWRENCE [...] 21:59:03 Legally authenticated by ANGIE PHAM 2023-11-23 21:59:[facility] [id number] 21:53:03[place] [address] DIAGNOSTIC IMAGING REPORT Patient Name: ROBERT, CONCEPTION Date of Service: 11-23-2023 Age: 48 Sex: F Order #: [id number] Room: [facility] : 1975 X-Ray Number: [id number] Hospital Number: [id number] Admitting Physician: LAWRENCE MEJIAS Ordering Physician: LAWRENCE [...] on 11/23/2023 21:53:03 Legally authenticated by YUNIOR CMKEON 2023-11-23 21:53:03ALON DEL RIO 2023-10-25 00:00:00 Henry Goldberg [facility]2024-04-10 09:45:21 We are unable to release any pt information with out prior pt permission. However, Risperdal is not generally managed by neurology and would be best managed by psychiatrist. Robyn Durham [facility]2024-04-09 16:15:28 Copied from [facility] #[id number]. Topic: Clinical - Order >> Oct 01, 2023 4:13 PM Patient Topographic Computator wrote: [facility] is calling regarding medication risperdal they were givng her 3mg and stating had dropped it to 1mg trying to confirm change Call [phone] Skyler VillarrealLevine Children[facility] [id number] 12:29:00 [facility] ([facility] Hospitalist Discharge Summary REPORT#:[id number] REPORT STATUS: Signed DATE:10/11/22 TIME: 1229 PATIENT: BHUMIKA JONES UNIT #: [id number] ROOM/BED: [place] [address] : 74 AGE: 47 SEX: F ATTEND: [...] patient this morning with the help of sql ssrs developer and she said that he lives with [...] refill, normal range of motion, no edema Neuro/TARGETING ACQUISITION OFFICER: altered mental status, alert Discharge Instructions PCP Discharge to: Home/Self Care Additional Discharge Routines: PCP Follow-Up Diet: Resume Home Diet/Feeds Activity: As Tolerated Follow-up Appointments PCP follow-up: PCP: No Primary or Family Physician PCP follow up timeframe: In 6 days at 1230 RPT #:[id number] END OF [id number] 17:27:00 [facility] ([facility]) Electroencephalogram-EEG REPORT#:[id number] REPORT STATUS: Signed DATE:09/18/22 TIME: 1726 PATIENT: BHUMIKA JONES UNIT #: [id number] ROOM/BED: [place] [address] : 74 AGE: 47 SEX: F ATTEND: [...] open eyes (commands were obtained using a supervisor microfilm duplicating unit) with opening the eyes the patient would [...] with the patient mentioned. at 1736 RPT #:[id number] END OF [id number] 14:24:00 [facility] ([facility] Neurology Consultation Note REPORT#:[id number] REPORT STATUS: Signed DATE:09/18/22 TIME: 1424 PATIENT: BHUMIKA JONES UNIT #: [id number] ROOM/BED: [place] [address] : 74 AGE: 47 SEX: F ATTEND: Marly Mendenhall MD ADM AUTHOR: Nelia Parker MD * ALL edits or amendments must be made on the electronic/computer document * See Addendum History of Present Illness HPI Requesting clinician: see consult order Reason for consult: "AMS" Chief complaint: wanting to go home for her family HPI: 47-year-old female Citizen Of [place] speaking only who was brought into the [...] and the patient was sent to a fpc. Reportedly per the patient she did not [...] seizures prior to her being in the fpc. Per the patient she [...] <10 MG 09/18 09/18 09/17 09/17 0553 0500 1921 7266 Chemistry Hemoglobin A1c (4.5 - 5.6 % [...] - 8.0 pH UNITS) 6.5 Ur Specific [place] (1.001 - 1.035 SG) 1.013 Urine Protein [...] the past or not. at 1652 RPT #:[id number] END OF [id number] 11:44:00 [facility] ([facility] Hospitalist Progress Note REPORT#:[id number] REPORT STATUS: Signed DATE:09/18/22 TIME: 1144 PATIENT: BHUMIKA JONES UNIT #: [id number] ROOM/BED: [place] [address] : 74 AGE: 47 SEX: F ATTEND: [...] patient this morning with the help of sql ssrs developer and she said that he lives with [...] refill, normal range of motion, no edema Neuro/TARGETING ACQUISITION OFFICER: altered mental status, alert Diagnosis, Assessment Plan [...] afternoon if remains stable at 1147 RPT #:[id number] END OF [id number] 01:06:00 [facility] ([facility]) Hospitalist History Physical REPORT#:[id number] REPORT STATUS: Signed DATE:09/18/22 TIME: 105 PATIENT: BHUMIKA JONES UNIT #: [id number] ROOM/BED: [place] [address] : [birth year] AGE: 47 SEX: F ATTEND: [...] - 8.0 pH UNITS) 6.5 Ur Specific [place] (1.001 - 1.035 SG) 1.013 Urine Protein [...] rhythm Respiratory: decreased breath sounds Abdomen: soft Neuro/TARGETING ACQUISITION OFFICER: altered mental status, alert Diagnosis, Assessment Plan [...] management by incoming thereafter at 0110 RPT #:[id number] END OF [id number] 14:34:00 [facility] ([facility]) EMERGENCY PROVIDER REPORT REPORT#:[id number] REPORT STATUS: Signed DATE:09/17/22 TIME: 1434 PATIENT: BHUMIKA JONES UNIT #: [id number] ROOM/BED: 267-1 AGE: 47 SEX: F PCP PHYS: No Primary or Family Physician SERVICE AUTHOR: Valentina Samayoa MD * ALL edits or amendments must be made on the electronic/computer document * HPI-General Illness Free Text HPI Notes Free Text HPI Notes 47-year-old female presents after possible seizure episode at [facility], will assessment patient is not fully oriented, and cannot provide history of the events of today when asked multiple times. Additional history limited as the patient is tearful and not fully oriented. I spoke to the patient's sister Lewis Luis, phone #[phone] by phone, who reports the patient has been missing from home for 8 days. Reports when the patient is medically cleared they can come get the patient. Patient reportedly initially without medications at the [facility] PMH: Seizures, schizophrenia. General Initial Greet Date/Time [...] #30 TABS Prov: 09/13/22 DC: 09/14/22 1500 customs entry clerk correction DIVALPROEX (GINA CALLES) 1,000 MG PO DAILY DIVALPROEX (GINA CALLES) 1,000 MG PO DAILY #60 TABS Prov: 09/13/22 DC: 09/14/22 1459 customs entry clerk correction Reported Medications DIVALPROEX ER (DEPAKOTE [...] - 8.0 pH UNITS) 6.5 Ur Specific Frederick (1.001 - 1.035 SG) 1.013 Urine Protein [...] refill, drowsy, admitted, ultimately discharged back to fpc] -My EKG interpretation: I directly visualized and [...] )( Accepted Date 09/17/22 at 1114 RPT #:[id number] END OF [id number] 00:19:00 [facility] ([facility]) EMERGENCY PROVIDER REPORT REPORT#:[id number] REPORT STATUS: Signed DATE:09/17/22 TIME: 0019 PATIENT: BHUMIKA JONES UNIT #: [id number] ROOM/BED: AGE: 47 SEX: F PCP PHYS: No Primary or Family Physician SERVICE AUTHOR: Asim Jack MD * ALL edits or amendments must be made on the electronic/computer document * HPI-General Illness General Initial Greet Date/Time 09/16/22 3108 Presentation Chief Complaint Anxiety, Not feeling well Free Text HPI Notes Free Text HPI Notes Patient brought in by EMS from local women [facility]pc after increasing anxiety and concern for possible seizure activity. She was recently admitted here at [facility] and worked up for [...] #30 TABS Prov: 09/13/22 DC: 09/14/22 1500 customs entry clerk correction DIVALPROEX DR (GINA CALLES) 1,000 MG PO DAILY DIVALPROEX DR (GINA CALLES) 1,000 MG PO DAILY #60 TABS Prov: 09/13/22 DC: 09/14/22 1459 customs entry clerk correction Reported Medications DIVALPROEX ER (DEPAKOTE [...] % (Auto) (14.1 - 45.4 %) 29.6 [place] % (Auto) (2.5 - 11.7 %) 10.8 Eos % (Auto) (0.0 - 6.2 %) 2.9 Baso % (Auto) (0.0 - 2.1 %) 0.7 Gran # (2.0 - 13.7 k/mm3) 3.12 Lymph # (Auto) (0.6 - 3.8 K/mm3) 1.65 [place] # (Auto) (0.11 - 0.59 K/mm3) 0.60 [...] RADIOLOGY - XR CHEST 1 V 09/16 0845 Report Impression - Status: SIGNED Entered: 09/16/2022 9137 IMPRESSION: No acute cardiopulmonary disease. Impression By: [...] Text MDM Notes Patient presents from local fpc with concern for [...] for discharge. Patient urged to follow-up with [facility] in the next 2 to 3 [...] Instructions Please follow-up with [facility], [facility], and neurology. Return if any confusion, headache, stiff neck, fever, vomiting, or any other new concerns. Please take all your medications as instructed Referrals Provider Group: [facility] Follow-Up: 2-3 Days Provider Referral: Nelia Parker MD Follow-Up: 2-3 Days Address: [address] [place] [address] [address] [place] [address] Resource Referral: Savita Orona [facility] Follow-Up: 2-3 Days Address: [address] [place] [address] at 0140 RPT #:[id number] END OF [id number] 12:06:00 [facility] ([facility]) Electroencephalogram-EEG REPORT#:[id number] REPORT STATUS: Signed DATE:09/15/22 TIME: 1206 PATIENT: BHUMIKA JONES UNIT #: [id number] ROOM/BED: [address] : [birth year] AGE: 47 SEX: F [...] or electrographic seizures recorded. at 1209 RPT #:[id number] END OF [id number] 12:00:00 [facility] Hospitalist Discharge Summary REPORT#:[id number] REPORT STATUS: Signed DATE:09/15/22 TIME: 1200 PATIENT: BHUMIKA JONES UNIT #: [id number] ROOM/BED: [facility] : 74 AGE: 47 SEX: [...] possible seizure episode. She is Citizen Of [place]-speaking patient only in freelance interpreter/translator was used. Patient denies to have any seizure episodes at home she just ran out of her medications and came to the hospital. Patient otherwise remains hemodynamically stable. However she is too drowsy to be discharged safely back home. I discussed the case with the patient. She wants her medications to be refilled and that she wants to go back to her fpc. I discussed with her about potential seizure [...] initial diagnosis and related differentials with the patient/family day care worker including RN. All concerns and questions are answered to the best of my abilities based on the available data.I have initiated the plan of care based on preliminary diagnosis, requested appopriate consultations with labs/imagings. Patient/family day care worker verbalizes understanding of the plan [...] timeframe: In 1-2 weeks at 1202 RPT #:[id number] END OF [id number] 16:56:00 [facility] ([facility]) Neurology Consultation Note REPORT#:[id number] REPORT STATUS: Signed DATE:09/14/22 TIME: 1655 PATIENT: BHUMIKA JONES UNIT #: [id number] ROOM/BED: [address] : 74 AGE: 47 SEX: F [...] possible seizure episode. She is Citizen Of [place]-speaking patient only in freelance interpreter/translator was used. Patient denies to have any [...] (SODIUM CHLORIDE 0.9% 1000 ML) 1,000 ML .[id number] IV Trazodone HCl (DESYREL) 50 MG BEDTIME PRN PRN PO Sodium Chloride (SODIUM CHLORIDE 0.9% 1000 ML) 1,000 ML .[id number] IV Carbamazepine (TEGretol) 400 MG BID PO Divalproex Sodium (DEPAKOTE DR) 1,000 MG BID PO (DC) Acetaminophen (TYLENOL) 650 MG Q6H PRN PRN PO Ondansetron HCl (ZOFRAN) 4 MG Q4H PRN PRN IV Ceftriaxone Sodium (ROCEPHIN) 1 GM Q24H IV (CAN) Lactated Ringer's (LACTATED RINGERS) 1,000 ML .[id number] IV Ceftriaxone Sodium (ROCEPHIN) 1 GM X1ED [...] % (Auto) (14.1 - 45.4 %) 33.6 [place] % (Auto) (2.5 - 11.7 %) 13.4 H Eos % (Auto) (0.0 - 6.2 %) 7.4 H Baso % (Auto) (0.0 - 2.1 %) 0.9 Gran # (2.0 - 13.7 k/mm3) 2.61 Lymph # (Auto) (0.6 - 3.8 K/mm3) 1.96 [place] # (Auto) (0.11 - 0.59 K/mm3) 0.78 [...] - 8.0 pH UNITS) 6.0 Ur Specific Frederick (1.001 - 1.035 SG) 1.032 Urine Protein [...] deferred to primary team. at 1707 RPT #:[id number] END OF [id number] 14:55:00 [facility] ([facility]) Hospitalist History Physical REPORT#:[id number] REPORT STATUS: Signed DATE:09/14/22 TIME: 1454 PATIENT: BHUMIKA JONES UNIT #: [id number] ROOM/BED: [address]-W : 74 AGE: 47 SEX: F ATTEND: Jim Jamies MD ADM AUTHOR: Vladimir Forbes MD * [...] possible seizure episode. She is Citizen Of [place]-speaking patient only in freelance interpreter/translator was used. Patient denies to have any [...] % (Auto) (14.1 - 45.4 %) 33.6 [place] % (Auto) (2.5 - 11.7 %) 13.4 H Eos % (Auto) (0.0 - 6.2 %) 7.4 H Baso % (Auto) (0.0 - 2.1 %) 0.9 Gran # (2.0 - 13.7 k/mm3) 2.61 Lymph # (Auto) (0.6 - 3.8 K/mm3) 1.96 [place] # (Auto) (0.11 - 0.59 K/mm3) 0.78 [...] - 8.0 pH UNITS) 6.0 Ur Specific [place] (1.001 - 1.035 SG) 1.032 Urine Protein [...] Report Impression - Status: SIGNED Entered: 09/14/2022 0203 IMPRESSION: No radiographic evidence of acute cardiopulmonary [...] possible seizure episode. She is Citizen Of [place]-speaking patient only in freelance interpreter/translator was used. Patient denies to have any [...] initial diagnosis and related differentials with the patient/family day care worker including RN. All concerns and questions are answered to the best of my abilities based on the available data.I have initiated the plan of care based on preliminary diagnosis, requested appopriate consultations with labs/imagings. Patient/family day care worker verbalizes understanding of the plan of care. at 1501 RPT #:[id number] END OF [id number] 04:21:00 [facility] ([facility]) EMERGENCY PROVIDER REPORT REPORT#:[id number] REPORT STATUS: Signed DATE:09/14/22 TIME: 420 PATIENT: BHUMIKA JONES UNIT #: [id number] ROOM/BED: [place] [address] AGE: 47 SEX: F PCP PHYS: No [...] she needs to see a social services coordinator but is unsure how to arrange that. 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, Back End Web Developer Review of Systems ROS Statements All systems [...] % (Auto) (14.1 - 45.4 %) 33.6 [place] % (Auto) (2.5 - 11.7 %) 13.4 H Eos % (Auto) (0.0 - 6.2 %) 7.4 H Baso % (Auto) (0.0 - 2.1 %) 0.9 Gran # (2.0 - 13.7 k/mm3) 2.61 Lymph # (Auto) (0.6 - 3.8 K/mm3) 1.96 [place] # (Auto) (0.11 - 0.59 K/mm3) 0.78 [...] - 8.0 pH UNITS) 6.0 Ur Specific [place] (1.001 - 1.035 SG) 1.032 Urine Protein [...] the patient's second visit here at [facility] in the past 24 [...] of care. at 0449 at 0540 RPT #:[id number] END OF [id number] 20:34:00 [facility] ([facility]) EMERGENCY PROVIDER REPORT REPORT#:[id number] REPORT STATUS: Signed DATE:09/13/22 TIME: 2033 PATIENT: BHUMIKA JONES UNIT #: [id number] ROOM/BED: B.250-W AGE: 47 SEX: F PCP [...] (RisperDAL) 3 MG PO DAILY at 1707 [facility] #:[id number] END OF [id number] 09:58:00 [facility] ([facility]) EMERGENCY PROVIDER REPORT REPORT#:[id number] REPORT STATUS: Signed DATE:09/13/22 TIME: 957 PATIENT: BHUMIKA JONES UNIT #: [id number] ROOM/BED: AGE: 47 SEX: F PCP PHYS: [...] - 8.0 pH UNITS) 6.0 Ur Specific [place] (1.001 - 1.035 SG) 1.024 Urine Protein [...] % (Auto) (14.1 - 45.4 %) 34.0 [place] % (Auto) (2.5 - 11.7 %) 10.1 Eos % (Auto) (0.0 - 6.2 %) 2.7 Baso % (Auto) (0.0 - 2.1 %) 0.7 Gran # (2.0 - 13.7 k/mm3) 3.04 Lymph # (Auto) (0.6 - 3.8 K/mm3) 1.98 [place] # (Auto) (0.11 - 0.59 K/mm3) 0.59 Eos # (Auto) (0.0 - 0.4 K/mm3) 0.16 Baso # (Auto) (0.0 - 0.1 K/mm3) 0.04 Immature Gran % (0.0 - 2.0 %) 0.3 Nucleated RBC % (0.0 - 1.0 /100WBC%) 0.0 Nucleated RBCs # (0.0 - 0.05 K/mm3) 0.00 Point of Care Testing Pulse Oximetry Pulse Ox % 98 On: Room air Interpretation Interpreted by wy Time 09 ECG #1 Interpretation ECG Documented [...] a call to 911. at 1327 RPT #:[id number] END OF REPORTHCACR
--- NOTE | 2024-05-15 17:36 | EDPHYS ---
Physician Documentation [facility] Name: Davida Hodges Age: 49 yrs Sex: Female : 1975 Arrival Date: 05/15/2024 Time: 17:16 Bed Waiting Private MD: ED Physician Pascual Lundy HPI: 05/15 17:29 This 49 yrs old Female presents to ER via Unassigned with complaints of bite ry to cheek , no specific complaint. 17:29 This 49 yrs old Female presents to ER via Unassigned with unknown complaint. ry 17:29 bite to cheek. Onset: The symptoms/episode began/occurred just prior to arrival. ry Severity of symptoms: At their worst the symptoms were mild in the emergency department the symptoms are unchanged. The patient has experienced similar episodes in the past, multiple times. - Family history:: not pertinent. ROS: 17:31 Constitutional: Negative for fever, chills, and weight loss, Eyes: Negative for injury, ry pain, redness, and discharge, Neck: Negative for injury, pain, and swelling, Cardiovascular: Negative for chest pain, palpitations, and edema, Respiratory: Negative for shortness of breath, cough, wheezing, and pleuritic chest pain, Abdomen/GI: Negative for abdominal pain, nausea, vomiting, diarrhea, and constipation, Back: Negative for injury and pain, : Negative for injury, bleeding, discharge, and swelling, MS/Extremity: Negative for injury and deformity, Skin: Negative for injury, rash, and discoloration, Neuro: Negative for headache, weakness, numbness, tingling, and seizure, Psych: Negative for depression, anxiety, suicide ideation, homicidal ideation, and hallucinations, Allergy/Immunology: Negative for hives, rash, and allergies, Endocrine: Negative for neck swelling, polydipsia, polyuria, polyphagia, and marked weight changes, Hematologic/Lymphatic: Negative for swollen nodes, abnormal bleeding, and unusual bruising, 17:31 ENT: Positive for bite to mucosa right cheek, Exam: 17:32 Constitutional: This is a well developed, well nourished patient who is awake, alert, ry and in no acute distress. Head/Face: Normocephalic, atraumatic. Eyes: Pupils equal round and reactive to light, extra-ocular motions intact. Lids and lashes normal. Conjunctiva and sclera are non-icteric and not injected. Cornea within normal limits. Periorbital areas with no swelling, redness, or edema. Neck: Trachea midline, no thyromegaly or masses palpated, and no cervical lymphadenopathy. Supple, full range of motion without nuchal rigidity, or vertebral point tenderness. No Meningismus. Chest/axilla: Normal chest wall appearance and motion. Nontender with no deformity. No lesions are appreciated. Cardiovascular: Regular rate and rhythm with a normal S1 and S2. No gallops, murmurs, or rubs. Normal PMI, no JVD. No pulse deficits. Respiratory: Lungs have equal breath sounds bilaterally, clear to auscultation and percussion. No rales, rhonchi or wheezes noted. No increased work of breathing, no retractions or nasal flaring. Abdomen/GI: Soft, non-tender, with normal bowel sounds. No distension or tympany. No guarding or rebound. No evidence of tenderness throughout. Back: No spinal tenderness. No costovertebral tenderness. Full range of motion. Skin: Warm, dry with normal turgor. Normal color with no rashes, no lesions, and no evidence of cellulitis. MS/ Extremity: Pulses equal, no cyanosis. Neurovascular intact. Full, normal range of motion. Neuro: Awake and alert, GCS 15, oriented to person, place, time, and situation. Cranial nerves II-XII grossly intact. Motor strength 5/5 in all extremities. Sensory grossly intact. Cerebellar exam normal. Normal gait. Psych: Awake, alert, with orientation to person, place and time. Behavior, mood, and affect are within normal limits. 17:32 ENT: Mouth: Lips: normal, moist, Oral mucosa: normal, pink and intact, moist, Gums: normal with healthy appearance, Tongue: is normal, Posterior pharynx: no acute changes, MDM: 17:19 Medical Screening Exam initiated ry 17:33 Differential Diagnosis altered mental status. Data reviewed: vital signs, nurses notes. [facility] Consideration of Admission/Observation Escalation of care including admission/observation considered. I considered the following discharge prescriptions or medication management in the emergency department Medications were administered in the Emergency Department. See MAR. Test considered but Not performed: Labs: no labs. Care significantly affected by the following chronic conditions: schizo, bipolar. Counseling: I had a detailed discussion with the patient and/or guardian regarding the historical points, exam findings, and any diagnostic results supporting the discharge/admit diagnosis, lab results, radiology results, the need for outpatient follow up, for definitive care, a family practitioner. Administered Medications: No medications were administered Disposition Summary: 05/15/24 17:35 Discharge Ordered Notes: Location: Home ry Problem: new ry Symptoms: have improved ry Condition: Stable ry Diagnosis - Bipolar disorder, unspecified ry - Schizophrenia, unspecified ry - Laceration of lip and oral cavity without foreign body ry Followup: ry - With: Private Physician - When: 2 - 3 days - Reason: Recheck today's complaints, Continuance of care, Re-evaluation by your physician Discharge Instructions: - Discharge Summary Sheet ry - Schizophrenia ry - Mouth Laceration, [id number] ry - Supporting Someone With Bipolar Disorder ry - Supporting Someone With Schizophrenia ry - Managing Schizophrenia ry - Managing Anxiety, Adult ry Forms: - Medication Reconciliation Form ry - Antibiotic Education ry - Prescription Opioid Use ry - Patient Portal Instructions ry - Leadership Thank You Letter ry Signatures: Pascual Lundy MD MD cha
--- NOTE | 2024-05-15 18:39 | ER ---
Nurse's Notes [facility] Name: Davida Hodges Age: 49 yrs Sex: Female : 1975 Arrival Date: 05/15/2024 Time: 17:16 Bed Waiting Private MD: Diagnosis: Bipolar disorder, unspecified;Schizophrenia, unspecified;Laceration of lip and oral cavity without foreign body - Family history:: not pertinent. ED Course: 05/15 17:18 Patient arrived in ED. ec2 17:19 Pascual Lundy MD is Attending Physician. ry Administered Medications: No medications were administered Outcome: 17:35 Discharge ordered by . ry 18:38 Discharged to home ambulatory, Pt left prior to being assessed by triage nurse/ prior ss to triage 18:38 Patient left the ED. ss Signatures: Pascual Lundy MD MD cha Blanchard, Shelby, GERONIMO RN ss Marquise Eng MD MD ec2
== END 2024-05-15 18:38 | disposition home or self-care (01) ==
LOC: ER 17:16
DX: S01.511A Laceration without foreign body of lip, initial encounter (principal); S01.512A Laceration without foreign body of oral cavity, initial encounter; F25.0 Schizoaffective disorder, bipolar type

== ENCOUNTER 2024-05-25 11:14 | Emergency (ER) | payer SELFPAY ==
--- OUTSIDE RECORDS SUMMARY | 2024-05-25 11:23 | XMS REPORT | Continuity of Care Document ---
Author Name Unknown Address [address] [facility] [address] [place] [address] [facility] thconnect Address [address] [facility] [place] [address] Care Team Providers Care Youth Specialist Name Role Phone PCP, NO Primary Care Physician Unavailab LAWRENCE Weston Attending Clinician Unavailable ARLEN LAGUNAS Attending Clinician Unavailable JUAN MIGUEL PRICE Attending Clinician Unavailable MELVINA SHEPHERD Attending Clinician Tommy Phelan MD, Indio Perdue Attending Clinician INDIO PHELAN Attending Clinician Unavail able INDIO PHELAN Attending Clinician Unavail able Doctor Unassigned, [place] Attending Clinician U navailable Neurology Attending Clinician Unavailable DR JESS PAIGE Attending Clinician Unavailable Heri Snow MD Attending Clinician [phone] Denise MELTON, Madhavi Mota Attending Clinician Zari Marly Rodríguez Attending Clinician Unavailable Asim Jack Attending Clinician Unavailable Vladimir Forbes Attending Clinician Unavailable Brad Woodall Attending Clinician Unavaila Russel Angelo Attending Clinician Unavailermelinda Morfin MD, Lisa Schmitz Attending Clinician [phone] Sandrita Key MD Attending Clinician [phone] SANDRITA KEY Attending Clinician Unavailable ATYO BOYD Attending Clinician Unavailable Tayo Boyd MD Attending Clinician [phone] JAVED FRANK Attending Clinician Unavailable Javed Chavez Attending Clinician [phone] DEON NUNEZ Attending Clinician Unavailable Deon Nunez DO Attending Clinician [phone] Kp Dorado Attending Clinician [phone] Kp GILLILAND Attending Clinician Unavailable Kristin Howell Attending Clinician [phone] KRISTIN MILLER Attending Clinician Unavailable Floridalma Evans MD Attending Clinician [phone] FLORIDALMA EVANS Attending Clinician Unavailable Unknown, Attending Attending Clinician Unavailab LISA Kasper Attending Clinician UnavailHENRY Hall Attending Clinician Unavailable Henry Owen MD Attending Clinician [phone] DEBBIE PAYTON Attending Clinician Unavailab Debbie Hernandez DO Attending Clinician [phone] Le Ramirez NP Attending Clinician [phone] LAWRENCE MEJIAS Admitting Clinician Unavailable KAYLA ALANIZ [...] Number Effective Date Expirati on Date Source [facility] [id number] 1000 [id number] 2022 00:00:00 MEDICAID ALIEN PENDING PENDING 2021 [...] different from the original. 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 [employer] [facility] Morbid obesity [...] Allergie s NA Active 11-23 07:59: 00 [facility] No Known Allergie s NA Active 11-22 21:17: 11 [facility] No Known Allergie s NA Active 11-22 19:46: 36 [facility] No Known Allergie s DA Active U 09-13 00:00: 00 [facility] carbamaz epine DA Active U UNKNOWN 09-13 00:00: 00 [facility] carbamaz epine DA Active U UNKNOWN 09-10 00:00: 00 [facility] No Known Drug Allergie s DA Active [facility] NO KNOWN ALLERGIE S Drug Class Active [facility] Social History Social Habit Start Date Stop Date Quantity Comments Source [facility] Future intention Reported [facility] Alcohol intake 2023-07-23 00:00:00 2023-07-23 00:00:00 Current non-drinker of alcohol (finding) [facility] History of Social function 2023-07-23 00:00:00 2023-07-23 00:00:00 [facility] Exposure to SARS-CoV-2 (event) 2022-09-14 00:00:00 2022-09-24 12:30:00 Not sure [facility] Tobacco use and exposure 2014-07-05 00:00:00 2014-07-05 00:00:00 Smokeless tobacco non-user [facility] Sex Assigned At 1975 00:00:00 1975 00:00:00 [facility] Smoking Status Start Date Stop Date Source [...] ML SOLN|dose: 2.0 mg|route:| frequency: ONE TIME Religion [facility] ([facility]) LORazepam INJ 2 MG/1 ML SOLN LORazepam INJ 2 MG/1 ML SOLN 11-22 23:33: 00 11-22 23:33 :00 No 2mg medication :LORazepam INJ 2 MG/1 ML SOLN|dose: 2.0 mg|route:| frequency: ONE TIME Religion [facility] ([facility]) diphenhydrA MINE INJ (Benadryl) 50 MG/ML SOLN diphenhydrA MINE INJ (Benadryl) 50 MG/ML SOLN 11-22 23:33: 00 11-22 23:33 :00 No 50mg medication :diphenhyd rAMINE INJ (Benadryl) 50 MG/ML SOLN|dose: 50.0 mg|route:| frequency: ONE TIME Religion [facility] ([facility]) ziprasidone INJ 20 MG SOLR ziprasidone INJ 20 MG SOLR 11-22 20:05: 00 11-22 20:05 :00 No 10mg medication :ziprasido ne INJ 20 MG SOLR|dose: 10.0 mg|route:I NTRAMUSCUL AR|frequen cy:ONE TIME Religion [facility] ([facility]) sterile water for injection SOLN sterile water for injection SOLN 11-22 20:05: 00 11-22 20:05 :00 No 10mL medication :sterile water for injection SOLN|dose: 10.0 mL|route:| frequency: ONE TIME [facility] ([facility]) levothyroxi ne 50 mcg tablet 10-12 00:00: 00 Yes 1mcg Henry Contreras TAKE 1 TABLET EVERY MORNING. 09-15 00:00: 00 Yes 50 Henry Contreras TAKE 1 TABLET AT BEDTIME. 25 00:00: 00 Yes 1 Henry Contreras TAKE [...] 1 mg tablet 07-23 00:00: 00 Yes [id number] 1mg Take 1 tablet by mouth at [...] 1 TABLET DAILY. 2022-06 00:00: 00 Yes [id number] Henry Contreras TAKE 1 TABLET EVERY 6 HOURS NEEDED FOR DIZZINESS. 2022-06 00:00: 00 11-01 00:00 :00 No 25 Henry Contreras TAKE 1 TABLET BY MOUTH DAILY 2022-06 00:00: 00 11-01 00:00 :00 No 2 Henry Contreras TAKE 1 TABLET DAILY. 03-04 00:00: 00 11-01 00:00 :00 No [id number] Henry Contreras TAKE 1-2 TABS EVERY 8 [...] Administer over 15 Minutes, 100 mL [facility] LORazepam (ATIVAN) injection 1 mg 09-10 02:15: 00 09-10 03:04 :00 No 1mg 1 mg, Slow IV Push, ONCE, 1 dose, On 09/09/22 at 2115, STAT [facility] hydrOXYzine 25 mg tablet 09-09 00:00: 00 Yes [id number] 25mg Take 1 tablet by mouth every 6 (six) hours. [facility] levETIRAcet am (KEPPRA) 500 mg tablet 09-09 00:00: 00 Yes [id number] 500mg Take 1 tablet by mouth 2 (two) times daily. [facility] acetaminoph en (TYLENOL) tablet 650 mg 09-07 00:45: 00 09-07 02:10 :00 No 650mg 650 mg, Oral, ONCE, 1 dose, On Diana 09/06/22 at 1945, [facility] TAKE 1 TABLET BY MOUTH IN THE MORNING AND 1 TABLET AT BEDTIME 2021-06 00:00: 00 Yes Henry Contreras TAKE 1 TABLET BY MOUTH IN THE MORNING AND 1 AT BEDTIME 2021-06 006 00:00: 00 Yes Henry Contreras acetaminoph en (TYLENOL) tablet 1,000 mg 10-02 22:15: 00 10-02 23:27 :00 No 1000mg 1,000 mg, Oral, ONCE, 1 dose, On Sat10/02/21 at 1715, [facility] ibuprofen (IBU) tablet 600 mg 10-02 22:15: 00 10-02 23:27 :00 No 600mg 600 mg, Oral, ONCE, 1 dose, On Sat10/02/21 at 1715, [facility] hydroxyzine HCl 25 mg tablet 2020-06 00:00: 00 Yes 1mg Henryjoseph Contreras traMADoL 50 mg tablet 2020-06 00:00: 00 Yes [id number] 50mg Take 1 tablet by mouth every 6 (six) hours as needed for Pain (scale 7-10). Indication s: acute pain [facility] naproxen sodium (ANAPROX DS) 550 mg tablet 2020-06 00:00: 00 Yes [id number] 550mg Take 1 tablet by mouth 2 (two) times daily with meals. [facility] ibuprofen 600 mg tablet 2020-06 00:00: 00 Yes 1mg Henry Contreras amoxicillin -clavulanat e 875-125 mg per tablet 08-13 00:00: 00 Yes [id number] 1{tbl} Take 1 tablet by mouth every 12 (twelve) hours. [facility] clindamycin 300 mg capsule 08-13 00:00: 08-23 05:59 :00 No [id number] 300mg Take 1 capsule by mouth 4 [...] ONCE, 1 dose, Sat07/22/19 at 1800, Routine
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 [facility] mupirocin 2 % topical ointment 07-10 00:00: 00 Yes 1% Henry Contreras ibuprofen 800 mg tablet 07-10 00:00: 00 Yes 1mg Henry Contreras Keflex 500 mg capsule 07-10 00:00: 00 Yes 1mg Henry Contreras cephALEXin (KEFLEX) 500 mg capsule 07-04 00:00: 00 Yes [id number] 500mg Take 1 capsule by mouth 4 (four) times daily. [facility] traMADol 50 mg tablet 07-04 00:00: 00 05-05 00:00 :00 No [id number] 50mg Take 1 tablet by mouth every 6 (six) hours as needed for Pain (scale 7-10). [facility] bacitracin 500 unit/gram ointment 07-04 00:00: 00 07-15 05:59 :00 No [id number] Apply to affected area(s) 2 (two) times daily for 10 days. [facility] traMADol 50 mg tablet 06-30 00:00: 00 05-05 00:00 :00 No [id number] 50mg Take 1 tablet by mouth every [...] martin Body temperature 2023-11-24 19:00:00 98.1 [degF] [facility]) Diastolic blood pressure 2023-11-24 19:00:00 69 mm[Hg] [facility] Heart rate 2023-11-24 19:00:00 70 /min [facility]) Oxygen saturation in Arterial blood by Pulse oximetry 2023-11-24 19:00:00 97 /min [facility]) Respiratory rate 2023-11-24 19:00:00 16 /min [facility]) Systolic blood pressure 2023-11-24 19:00:00 127 mm[Hg] [facility] Diastolic blood pressure 2023-11-23 23:30:00 78 mm[Hg] [facility]) Heart rate 2023-11-23 23:30:00 74 /min [facility]) Oxygen saturation in Arterial blood by Pulse oximetry 2023-11-23 23:30:00 97 /min [facility] [facility] Respiratory rate 2023-11-23 23:30:00 16 /min [facility]) Systolic blood pressure 2023-11-23 23:30:00 134 mm[Hg] [facility] Body temperature 2023-11-23 19:30:00 98.5 [degF] [facility]) Body height 2023-07-23 20:19:00 152.4 cm [facility] Body weight 2023-07-23 20:19:00 77.837 kg [facility] BMI 2023-07-23 20:19:00 33.51 kg/m2 [facility] Height 2022-11-04 14:04:00 149.86 CM Weight 2022-11-04 14:04:00 73.02 KG Systolic blood pressure 2022-09-24 17:32:00 130 mm[Hg] [facility] Diastolic blood pressure 2022-09-24 17:32:00 85 mm[Hg] [facility] Heart rate 2022-09-24 17:32:00 64 /min [facility] Body temperature 2022-09-24 17:32:00 36.83 Oma [facility] Respiratory rate 2022-09-24 17:32:00 18 /min [facility] Body weight 2022-09-24 17:32:00 74.844 kg [facility] BMI 2022-09-24 17:32:00 33.33 kg/m2 [facility] Oxygen saturation in Arterial blood by Pulse oximetry 2022-09-24 17:32:00 99 /min [facility] Systolic blood pressure 2022-09-10 23:55:00 111 mm[Hg] [facility] Diastolic blood pressure 2022-09-10 23:55:00 84 mm[Hg] [facility] Heart rate 2022-09-10 23:55:00 105 /min [facility] Body temperature 2022-09-10 23:55:00 37.33 Oma [facility] Respiratory rate 2022-09-10 23:55:00 19 /min [facility] Systolic blood pressure 2022-09-10 01:44:00 126 mm[Hg] [facility] Diastolic blood pressure 2022-09-10 01:44:00 81 mm[Hg] [facility] Heart rate 2022-09-10 01:44:00 78 /min [facility] Body temperature 2022-09-10 01:44:00 36.56 Oma [facility] Respiratory rate 2022-09-10 01:44:00 16 /min [facility] Body weight 2022-09-10 01:44:00 79.379 kg [facility] BMI 2022-09-10 01:44:00 35.35 kg/m2 [facility] Oxygen saturation in Arterial blood by Pulse oximetry 2022-09-10 01:44:00 100 /min [facility] Systolic blood pressure 2022-09-07 05:37:00 119 mm[Hg] [facility] Diastolic blood pressure 2022-09-07 05:37:00 67 mm[Hg] [facility] Heart rate 2022-09-07 05:37:00 79 /min [facility] Respiratory rate 2022-09-07 05:37:00 16 /min [facility] Oxygen saturation in Arterial blood by Pulse oximetry 2022-09-07 05:37:00 98 /min [facility] Body temperature 2022-09-06 23:05:00 36.78 Oma [facility] Body weight 2022-09-06 23:05:00 79.379 kg [facility] BMI 2022-09-06 23:05:00 35.35 kg/m2 [facility] Systolic blood pressure 2021-10-02 20:55:00 111 mm[Hg] [facility] Diastolic blood pressure 2021-10-02 20:55:00 70 mm[Hg] [facility] Heart rate 2021-10-02 20:55:00 79 /min [facility] Body temperature 2021-10-02 20:55:00 36.61 Oma [facility] Respiratory rate 2021-10-02 20:55:00 18 /min [facility] Body height 2021-10-02 20:55:00 149.9 cm [facility] Body weight 2021-10-02 20:55:00 79.379 kg [facility] BMI 2021-10-02 20:55:00 35.35 kg/m2 [facility] Oxygen saturation in Arterial blood by Pulse oximetry 2021-10-02 20:55:00 100 /min [facility] Systolic blood pressure 2021-05-05 19:20:00 102 mm[Hg] [facility] Diastolic blood pressure 2021-05-05 19:20:00 48 mm[Hg] [facility] Heart rate 2021-05-05 19:20:00 68 /min [facility] Body temperature 2021-05-05 19:20:00 36.94 Oma [facility] Respiratory rate 2021-05-05 19:20:00 18 /min [facility] Body weight 2021-05-05 19:20:00 79.379 kg [facility] BMI 2021-05-05 19:20:00 35.35 kg/m2 [facility] Oxygen saturation in Arterial blood by Pulse oximetry 2021-05-05 19:20:00 99 /min [facility] Systolic blood pressure 2019-12-15 22:12:00 138 mm[Hg] [facility] Diastolic blood pressure 2019-12-15 22:12:00 100 mm[Hg] [facility] Heart rate 2019-12-15 22:12:00 77 /min [facility] Body temperature 2019-12-15 22:12:00 37.06 Oma [facility] Respiratory rate 2019-12-15 22:12:00 20 /min [facility] Body weight 2019-12-15 22:12:00 79.379 kg [facility] BMI 2019-12-15 22:12:00 35.35 kg/m2 [facility] Oxygen saturation in Arterial blood by Pulse oximetry 2019-12-15 22:12:00 100 /min [facility] Systolic blood pressure 2019-12-15 22:12:00 138 mm[Hg] [facility] Diastolic blood pressure 2019-12-15 22:12:00 100 mm[Hg] [facility] Heart rate 2019-12-15 22:12:00 77 /min [facility] Body temperature 2019-12-15 22:12:00 37.06 Oma [facility] Respiratory rate 2019-12-15 22:12:00 20 /min [facility] Body weight 2019-12-15 22:12:00 79.379 kg [facility] BMI 2019-12-15 22:12:00 35.35 kg/m2 [facility] Oxygen saturation in Arterial blood by Pulse oximetry 2019-12-15 22:12:00 100 /min [facility] Respiratory rate 2019-10-25 23:43:00 18 /min [facility] Body weight 2019-10-25 23:43:00 83.915 kg [facility] BMI 2019-10-25 23:43:00 37.37 kg/m2 [facility] Respiratory rate 2019-10-25 23:43:00 18 /min [facility] Body weight 2019-10-25 23:43:00 83.915 kg [facility] BMI 2019-10-25 23:43:00 37.37 kg/m2 [facility] Systolic blood pressure 2019-08-13 19:25:00 123 mm[Hg] [facility] Diastolic blood pressure 2019-08-13 19:25:00 88 mm[Hg] [facility] Heart rate 2019-08-13 19:25:00 78 /min [facility] Body temperature 2019-08-13 19:25:00 36.56 Oma [facility] Respiratory rate 2019-08-13 19:25:00 18 /min [facility] Body height 2019-08-13 19:25:00 149.9 cm [facility] Body weight 2019-08-13 19:25:00 90.719 kg [facility] BMI 2019-08-13 19:25:00 40.40 kg/m2 [facility] Oxygen saturation in Arterial blood by Pulse oximetry 2019-08-13 19:25:00 100 /min [facility] Systolic blood pressure 2019-08-13 19:25:00 123 mm[Hg] [facility] Diastolic blood pressure 2019-08-13 19:25:00 88 mm[Hg] [facility] Heart rate 2019-08-13 19:25:00 78 /min [facility] Body temperature 2019-08-13 19:25:00 36.56 Oma [facility] Respiratory rate 2019-08-13 19:25:00 18 /min [facility] Body height 2019-08-13 19:25:00 149.9 cm [facility] 2019-08-13 19:25:00 90.719 kg [facility] BMI 2019-08-13 19:25:00 40.40 kg/m2 [facility] Oxygen saturation in Arterial blood by Pulse oximetry 2019-08-13 19:25:00 100 /min [facility] Oxygen saturation in Arterial blood by Pulse oximetry 2019-07-23 00:20:15 100 /min [facility] Systolic blood pressure 2019-07-23 00:20:15 120 mm[Hg] [facility] Diastolic blood pressure 2019-07-23 00:20:15 74 mm[Hg] [facility] Heart rate 2019-07-23 00:20:15 82 /min [facility] Respiratory rate 2019-07-23 00:20:15 19 /min [facility] Body temperature 2019-07-22 19:41:00 36.33 Oma [facility] Body weight 2019-07-22 19:39:00 90.719 kg [facility] BMI 2019-07-22 19:39:00 39.06 kg/m2 [facility] Oxygen saturation in Arterial blood by Pulse oximetry 2019-07-23 00:20:15 100 /min [facility] Systolic blood pressure 2019-07-23 00:20:15 120 mm[Hg] [facility] Diastolic blood pressure 2019-07-23 00:20:15 74 mm[Hg] [facility] Heart rate 2019-07-23 00:20:15 82 /min [facility] Respiratory rate 2019-07-23 00:20:15 19 /min [facility] Body temperature 2019-07-22 19:41:00 36.33 Oma [facility] Body weight 2019-07-22 19:39:00 90.719 kg [facility] BMI 2019-07-22 19:39:00 39.06 kg/m2 [facility] Systolic blood pressure 2019-07-14 03:33:00 127 mm[Hg] [facility] Diastolic blood pressure 2019-07-14 03:33:00 88 mm[Hg] [facility] Heart rate 2019-07-14 03:33:00 79 /min [facility] Respiratory rate 2019-07-14 03:33:00 16 /min [facility] Oxygen saturation in Arterial blood by Pulse oximetry 2019-07-14 03:33:00 97 /min [facility] Body weight 2019-07-14 02:16:00 90.719 kg [facility] BMI 2019-07-14 02:16:00 39.06 kg/m2 [facility] Body temperature 2019-07-14 02:15:00 36.78 Oma [facility] Body weight 2019-07-10 20:39:00 90.719 kg [facility] BMI 2019-07-10 20:39:00 39.06 kg/m2 [facility] Systolic blood pressure 2019-01-21 23:34:00 133 mm[Hg] [facility] Diastolic blood pressure 2019-01-21 23:34:00 78 mm[Hg] [facility] Heart rate 2019-01-21 23:34:00 66 /min [facility] Body temperature 2019-01-21 23:34:00 36.94 Oma [facility] Respiratory rate 2019-01-21 23:34:00 18 /min [facility] Body height 2019-01-21 23:34:00 147.3 cm [facility] Body weight 2019-01-21 23:34:00 68.04 kg [facility] BMI 2019-01-21 23:34:00 31.35 kg/m2 [facility] Oxygen saturation in Arterial blood by Pulse oximetry 2019-01-21 23:34:00 100 /min [facility] Systolic blood pressure 2019-01-21 23:34:00 133 mm[Hg] [facility] Diastolic blood pressure 2019-01-21 23:34:00 78 mm[Hg] [facility] Heart rate 2019-01-21 23:34:00 66 /min [facility] Body temperature 2019-01-21 23:34:00 36.94 Oma [facility] Respiratory rate 2019-01-21 23:34:00 18 /min [facility] Body height 2019-01-21 23:34:00 147.3 cm [facility] Body weight 2019-01-21 23:34:00 68.04 kg [facility] BMI 2019-01-21 23:34:00 31.35 kg/m2 [facility] Oxygen saturation in Arterial blood by Pulse oximetry 2019-01-21 23:34:00 100 /min [facility] BP Systolic 2024-02-24 13:46:00 107 mm[Hg] Step [...] OF BENEFITS 2023-07-23 18:45:32 Docto r Unassigned, [place] [facility] REFERRAL- REQUEST/RESPONSE 2023-06-05 06:01:00 Doctor Unassigned, [place] [facility] REFERRAL- REQUEST/RESPONSE 2023-05-20 06:01:00 Doctor Unassigned, [place] [facility] COMP. METABOLIC PANEL ([id number]) 2022-09-07 01:38:00 Tayo Boyd [facility] CBC WITH DIFF 2022-09-07 01:38:00 Tayo Boyd [facility] URINALYSIS 2022-09-07 01:38:00 Tayo Boyd [facility] XR ANKLE <3 VW LEFT 2022-09-07 00:56:00 Tayo Boyd [facility] XR FOOT <3 VW LEFT 2022-09-07 00:56:00 Tayo Boyd [facility] CONSENT/REFUSAL FOR DIAGNOSIS AND TREATMENT 2022-09-06 22:08:37 Doctor Unassigned, [place] [facility] CT CERVICAL SPINE WO CONTRAST 2021-10-02 21:53:00 Javed Frank [facility] CT LUMBAR SPINE WO CONTRAST 2021-10-02 21:53:00 Javed Frank [facility] CT THORACIC SPINE WO CONTRAST 2021-10-02 21:53:00 Javed Frank [facility] XR FOREARM 2 VW RIGHT 2021-05-05 20:03:34 Jose Carlos Nunez [facility] XR WRIST 3+ VW RIGHT 2021-05-05 20:03:34 Chino Nunez [facility] NOTICE OF PRIVACY PRACTICES 2021-05-05 19:12:00 Doctor Unassigned, [place] [facility] CONSENT/REFUSAL FOR DIAGNOSIS AND TREATMENT 2021-05-05 19:11:19 Doctor Unassigned, [place] [facility] CONSENT/REFUSAL FOR DIAGNOSIS AND TREATMENT 2019-08-13 19:17:22 Doctor Unassigned, [place] [facility] CT HEAD WO CONTRAST 2019-07-22 22:24:37 Rachel Samayoa [facility] XR CERVICAL SPINE 2 VW 2019-07-22 21:59:59 Samantha Samayoa [facility] CBC WITH DIFFERENTIAL 2019-07-22 21:34:00 Yanira Samayoa [facility] XR CERVICAL SPINE 2 VW 2019-07-14 02:43:00 Ivory Owen [facility] XR ELBOW <3 VW LEFT 2019-07-14 02:43:00 Henry Owen [facility] XR KNEE <3 VW RIGHT 2019-07-14 02:43:[address] [facility] XR SHOULDER <2 VW LEFT 2019-07-14 02:43:00 Ivory Owen [facility] [address] Ecg Routine Ecg W/least 12 Lds W/i r 2017-09-24 00:00:00 Henry Contreras Encounters Start Date/Time End Date/Time Encounter Type Admission Type Attending [facility] Care Facility Care Department Encounter ID Source 2022-11-13 13:10:28 Inpatient [facility] [id number] [facility] 2022-11-05 09:23:13 Inpatient [facility] [id number] [facility] 2024-04-15 15:38:37 2024-04-15 15:38:37 Outpatient [facility] [id number] Henry Etta Ben 2024-02-24 00:00:00 2024-02-24 00:00:00 Outpatient Visit [facility] [id number] Henry Contreras 2024-02-06 11:12:07 2024-02-06 11:12:07 Outpatient [facility] [id number] Henry Contreras 2024-01-02 13:29:25 2024-01-02 13:29:25 Outpatient S[facility] [id number] Henry Contreras 2024-01-01 13:05:17 2024-01-01 13:05:17 Outpatient SFA [facility] [id number] Henry Contreras 2023-12-23 17:12:35 2023-12-23 17:12:35 Outpatient SFA [facility] 700 Henry Contreras 2023-12-22 16:03:42 2023-12-22 16:03:42 Outpatient SFA [facility] [id number] Henry Contreras 2023-12-01 14:21:07 2023-12-01 14:21:07 Outpatient SFA [facility] 608 Henry Quiles Ben 2023-11-25 16:08:00 2023-11-25 16:08:00 Outpatient SFA [facility] 602 Henry Contreras 2023-11-25 00:00:00 2023-11-25 00:00:00 Outpatient Visit [facility] [id number] Henry Quiles Ben 2023-11-23 19:45:00 2023-11-24 19:04:00 Outpatient Encounter 1 [facility] 2.16.840.1. [id number] [facility] 2023-11-21 19:00:00 2023-11-22 01:00:00 Emergency [id number] [facility] 2023-11-16 23:05:00 2023-11-21 17:28:00 Inpatient ER JUAN MIGUEL PR[id number] [facility] 2023-11-15 16:24:00 2023-11-15 22:54:00 Emergency ER MELVINA SHEPHERD CHRTJP CHRTJP [id number] RODERICK Ainsley Ro [facility] 2023-10-28 12:27:38 2023-10-28 12:27:38 Outpatient SFA [facility] [id number] Henry Contreras 2023-10-25 15:44:11 2023-10-25 15:44:11 Outpatient SFA [facility] [id number] Henry Contreras 2023-10-25 00:00:00 2023-10-25 00:00:00 Outpatient Visit SFA [id number] Henry Contreras 2023-10-04 15:25:52 2023-10-04 15:25:52 Outpatient S[facility] [id number] Henry Contreras 2023-10-01 00:00:00 2023-10-01 00:00:00 Telephone Indio Phelan [facility] 1.840.114 350.1.13.10 4.2.7.2.686 [id number] [facility] 2023-09-16 16:03:08 2023-09-16 16:03:08 Outpatient SFA [facility] [id number] Henry Contreras 2023-08-01 10:00:49 2023-08-01 10:00:49 Outpatient SFA [facility] [id number] Henry Contreras 2023-07-23 14:20:00 2023-07-23 16:57:02 Outpatient INDIO OLIVEROS HOWARD [facility] [id number] [facility] 2023-07-23 14:20:00 2023-07-23 16:57:02 Office Visit Indio Phelan [facility] 1.840.114 350.1.13.10 4.2.7.2.686 [id number] [facility] 2023-07-23 00:00:00 2023-07-23 00:00:00 Orders Only Doctor Unassigned, [place] [facility] 1.840.114 350.1.13.10 4.2.7.2.686 [id number] [facility] 2023-07-04 16:48:23 2023-07-04 16:48:23 Outpatient [facility] [id number] Henry Contreras 2023-06-18 10:35:36 2023-06-18 10:35:36 Outpatient [facility] [id number] Henry Contreras 2023-06-05 00:00:00 2023-06-05 00:00:00 Orders Only Doctor Unassigned, [place] [facility] 1.2.840.114 350.1.13.10 4.2.7.2.686 [id number] [facility] 2023-06-04 16:00:39 2023-06-04 16:00:39 Outpatient [facility] [id number] Henry Quiles [place] 2023-05-24 15:38:52 2023-05-24 15:38:52 Outpatient [facility] [id number] Henry Quiles [place] 2023-05-22 00:00:00 2023-05-22 00:00:00 Letter (Out) [facility] [place] [facility] 1.2.840.114 350.1.13.10 4.2.7.2.686 [id number] [facility] 2023-05-20 00:00:00 2023-05-20 00:00:00 Orders Only Doctor Unassigned, [place] [facility] 1.2.840.114 350.1.13.10 4.2.7.2.686 [id number] [facility] 2023-05-17 15:07:14 2023-05-17 15:07:14 Outpatient [facility] [id number] Henry Quiles Ben 2023-03-02 12:27:43 2023-03-02 12:27:43 Outpatient [facility] [id number] Henry Quiles Ben 2023-01-09 17:11:26 2023-01-09 17:11:26 Outpatient [facility] [id number] Henry Contreras 2022-11-04 14:04:00 2022-11-05 11:09:00 Emergency JESS FALCON [facility] [id number] [facility] 2022-09-24 12:33:00 2022-09-24 12:51:00 Emergency Heri Snow [facility] 1..114 350.1.13.10 4.2.7.2.686 [id number] [facility] 2022-09-22 00:00:00 2022-09-22 00:00:00 [facility] 1..114 350.1.13.10 4.2.7.2.686 [id number] [facility] 2022-09-18 10:09:00 2022-09-19 14:28:00 Inpatient EM Marly Mendenhall [facility] OBSE [id number] [facility] 2022-09-16 22:50:00 2022-09-17 01:40:00 Emergency EM Guero, Asim [facility] FABI [id number] [facility] 2022-09-14 14:52:00 2022-09-15 14:00:00 Inpatient EM Vladimir Forbes [facility] TELE [id number] 75 [facility] 2022-09-13 09:34:00 2022-09-13 13:00:00 Emergency EM Brad Woodall [facility] FABI [id number] 75 [facility] 2022-09-10 23:39:00 2022-09-11 11:28:00 Emergency EM Russel Sewell [facility] [id number] 51 [facility] 2022-09-10 18:57:00 2022-09-10 20:20:00 Emergency Lisa Morfin Whitney [facility] 1.84.114 350.1.13.10 4.2.7.2.686 [id number] [facility] 2022-09-10 18:57:00 2022-09-10 20:20:00 Emergency X SANDRITA KEY [facility] ERT [id number] [facility] 2022-09-09 20:45:00 2022-09-09 22:46:00 Emergency X SANDRITA KEY [facility] ERT [id number] [facility] 2022-09-09 20:45:00 2022-09-09 22:46:00 Emergency Sandrita Key [facility] 1..840.114 350.1.13.10 4.2.7.2.686 [id number] [facility] 2022-09-06 18:09:00 2022-09-07 00:51:00 Emergency X TAYO BOYD [facility] ERT [id number] [facility] 2022-09-06 18:09:00 2022-09-07 00:51:00 Emergency Tayo Boyd [facility] 1..840.114 350.1.13.10 4.2.7.2.686 [id number] [facility] 2022-08-21 14:11:33 2022-08-21 14:11:33 Outpatient [facility] [id number] Henry Contreras 2022-07-17 15:03:48 2022-07-17 15:03:48 Outpatient [facility] [id number] Henry Quiles Ben 2021-10-02 15:56:00 2021-10-02 19:00:00 Emergency X JAVED FRAKN [facility] ERT [id number] [facility] 2021-10-02 15:56:00 2021-10-02 19:00:00 Emergency Javed Frank [facility] 1..840.114 350.1.13.10 4.2.7.2.686 [id number] [facility] 2021-05-05 13:22:00 2021-05-05 14:48:00 Emergency X DEON NUNEZ [facility] ERT [id number] [facility] 2021-05-05 13:22:00 2021-05-05 14:48:00 Emergency Deon Nunez [facility] 1.2.840.114 350.1.13.10 4.2.7.2.686 [id number] [facility] 2021-05-05 00:00:00 2021-05-05 00:00:00 Orders Only Doctor Unassigned, [place] [facility] 1.2.840.114 350.1.13.10 4.2.7.2.686 [id number] [facility] 2019-12-15 17:11:56 2019-12-15 18:04:00 [facility] 1.2.840.114 350.1.13.10 4.2.7.2.686 [id number] 2019-12-15 17:11:56 2019-12-15 18:04:00 Emergency Kp Gilliland [facility] 1.2.840.114 350.1.13.10 4.2.7.2.686 [id number] [facility] 2019-12-15 17:11:56 2019-12-15 17:11:56 Emergency X Kp GILLILAND [facility] ERT [id number] [facility] 2019-10-25 18:31:31 2019-10-25 19:21:00 Emergency Kristin Miller [facility] 1.2.840.114 350.1.13.10 4.2.7.2.686 [id number] 2019-10-25 18:31:31 2019-10-25 19:21:00 Emergency Kristin Milelr [facility] 1.2.840.114 350.1.13.10 4.2.7.2.686 [id number] [facility] 2019-10-25 18:31:31 2019-10-25 18:31:31 Emergency X KRISTIN MILLER [facility] ERT [id number] [facility] 2019-08-13 13:30:00 2019-08-13 14:36:00 Emergency Floridalma Evans [facility] 1.2.840.114 350.1.13.10 4.2.7.2.686 [id number] 2019-08-13 13:30:00 2019-08-13 14:36:00 Emergency Floridalma Evans [facility] 1.2.840.114 350.1.13.10 4.2.7.2.686 [id number] [facility] 2019-08-13 13:30:00 2019-08-13 14:36:00 Emergency X FLORIDALMA EVANS [facility] ERT [id number] [facility] 2019-07-22 13:42:11 2019-07-22 19:02:00 Emergency Unknown, Attending Lisa Morfin [facility] 1.2.840.114 350.1.13.10 4.2.7.2.686 [id number] 2019-07-22 13:42:11 2019-07-22 19:02:00 Emergency X LISA MORFIN [facility] ERT [id number] [facility] 2019-07-22 13:42:11 2019-07-22 19:02:00 Emergency Unknown, Attending Lisa Morfin [facility] 1.2.840.114 350.1.13.10 4.2.7.2.686 [id number] [facility] 2019-07-13 20:17:19 2019-07-13 21:48:00 Emergency X LEXIEHENRY [facility] ERT [id number] [facility] 2019-07-13 20:17:19 2019-07-13 21:48:00 Emergency Lexie, Henry [facility] 1.2.840.114 350.1.13.10 4.2.7.2.686 [id number] [facility] 2019-07-10 14:26:03 2019-07-10 16:33:00 Emergency X DEBBIE PAYTON [facility] ERT [id number] [facility] 2019-07-10 14:26:03 2019-07-10 16:33:00 Emergency Debbie Payton [facility] 1.2840.114 350.1.13.10 4.2.7.2.686 [id number] [facility] 2019-07-04 19:09:02 2019-07-04 22:51:00 Emergency X LISA MORFIN [facility] ERT [id number] [facility] 2019-06-30 10:33:08 2019-06-30 13:10:00 Emergency X DEON [facility] ERT [id number] [facility] 2019-05-25 11:58:19 2019-05-25 15:37:00 Emergency X DEON [facility] ERT [id number] [facility] 2019-04-09 22:29:37 2019-04-09 23:28:00 Emergency X FLORIDALMA EVANS [facility] ERT [id number] [facility] 2019-01-21 18:38:01 2019-01-21 19:59:00 Emergency Le Ramirez [facility] 1.2.840.114 350.1.13.10 4.2.7.2.686 [id number] 2019-01-21 18:38:01 2019-01-21 19:59:00 Emergency Le Ramirez [facility] 1.2.840.114 350.1.13.10 4.2.7.2.686 [id number] [facility] Results Test Description Test Time Test Comments Results Result Co mments Source Henry Daniel [id number] 04:20:00* Test Item Value Reference Range Interpretation Comme nts FT4 (test code = FT4) 1.05 ng/dL 0.78-2.19 T3 [id number] 04:20:00* Test Item Value Reference Range Interpretation Comme nts T3UP (test code = T3UP) 40.9 % 23.5-40.5 H Thyroxine (T4) free index in Serum or [id number] 04:19:00* Test Item Value Reference Range Interpretation Comme nts Thyroxine (T4) free index in Serum or Plasma (test code = 70330-0) 1.05 ng/dL 0.78-2.19 N [facility])Thyroid hormone uptake (T-uptake) in Serum or P 2023-11-24 04:18:00* Test Item Value Reference Range Interpretation Comme nts Thyroid hormone uptake (T-up take) in Serum or Plasma (test code = 33118-6) 40.9 % 23.5-40.5 H [facility])URINE DRUG [id number] 00:43:00* Test Item Value Reference Range Interpretation [...] abuse 5 panel - Urine by Screen [id number] 00:40:00 NegativeNegativeNegativeNegativeNegativeNegativeNegativeBl[facility] Hospital)[id number] 00:33:00* Test Item Value Reference Range Interpretation [...] /HPF 0-2 Urinalysis panel - Urine by [id number] 00:33:00* Test Item Value Reference Range Interpretation Comme nts Ketones [Presence] in Urine (test code = 33903-8) 15 MG/DL NEG N pH of Urine (test code = 2756-5) 5.5 1 5.0-7.5 N Urobilinogen [Presence] in U rine (test code = 45502-8) 0.2 EU/DL 0.2-1.0 N Specific gravity of Urine (t est code = 2965-2) 1.013 1 1.0-1.025 N Leukocytes [Presence] in Uri ne sediment by Light microscopy (test code = 79630-3) 10 /HPF 0.0-5.0 H Erythrocytes [Presence] in U rine sediment by Light microscopy (test code = 63030-2) 2 /HPF 0.0-2.0 N [facility])VITAMIN [id number] 22:47:00* Test Item Value Reference Range Interpretation Comme nts B12 (test code = B12) 880 pg/mL 239-931 [id number] 22:47:00* Test Item Value Reference Range Interpretation Comme nts FOLATE (test code = FOLATE) 8.9 ng/mL 2.76-20.0 THYROID STIMULATION [id number] 22:47:00* Test Item Value Reference Range Interpretation Comme nts TSH (test code = TSH) 6.62 UIU/ML 0.465-4.68 H Cobalamin (Vitamin B12) [Mass/volume] in [id number] 22:47:00* Test Item Value Reference Range Interpretation Comme nts Cobalamin (Vitamin B12) [Mass/volume] in Serum or Plasma (test code = 2132-9) 880 pg/mL 239.0-931.0 N [facility])Folate [Mass/volume] in Serum or [id number] 22:47:00* Test Item Value Reference Range Interpretation Comme nts Folate [Mass/volume] in Seru m or Plasma (test code = 2284-8) 8.9 ng/mL 2.76-20.0 N [facility])Thyrotropin in Serum or [id number] 22:47:00* Test Item Value Reference Range Interpretation Comme nts Thyrotropin in Serum or Plas ma (test code = 11794-6) 6.62 UIU/ML 0.465-4.68 H [facility])ER SCREEN FOR HIV / 22:46:00* Test Item Value Reference Range Interpretation Comme nts HIV 1/2 AB (test code = SCRN HIV) NEGATIVE NEGATIVE This test is us ed for SCREENING purposes only. All reactive results are prelimenary and confirmation results will follow. HIV 1+2 Ab [Units/volume] in Itbpn1017-87-13 22:45:[facility]HEPATITIS C ANTIBODY [id number] 22:28:00* Test Item Value Reference Range Interpretation Comme nts SCRN HCV (test code = SCRN HCV) NEGATIVE NEGATIVE Hepatitis C Anti body test is for screening purposes only. All reactives will be confirmed by additional testing. Hepatitis C virus Ab [Presence] in [id number] 22:27:00[facility])B-HCG QUAL (KIT)2023-11-23 22:01:00* Test Item Value Reference Range Interpretation Comme nts HCGQUAL (test code = HCGQUAL) NEGATIVE NEGATIVE URINE: NEGATIVE = < 20 mIU/ML; POSITIVE= >/= 20 mIU/ML SERUM: NEGATIVE = < 10 mIU/ML; POSITIVE= >/= 10 mIU/ML SOURCE (test code = SOURCE) SERUM HCG INTERNAL POSITIVE CNTRL (test code = HCGIPC) PASS PASS HCG LOT # (test code = UHCGLOT) [id number] HCG EXPIRATION DATE (test code = UHCGEXP) Choriogonadotropin.beta subunit ( [id number] 22:01:00* Test Item Value Reference Range Interpretation Comme nts Specimen source [Identifier] of Body fluid (test code = 64129-5) SERUM N Reagent Lot number (test cod e = 34605-8) 1 N [facility])CT HEAD W/O [id number] 22:00:00 [facility] 1975 Sex: F[address] [id number] IMAGING REPORTPatient Name: ROBERT, CONCEPTIONDate of Service: 48-62-1859Lmi: 48 Sex: F Order #: [id number] Room: ERSDOB: 1975 X-Ray Number: [id number] Record Number: [id number] Hospital Number: [id number] Physician: LAWRENCE MEJIASOrdering Physician: LAWRENCE MEJIASPROCEDURE: CTHEAD [...] 21:59:03CT Head and Orbit - bilateral WO [id number] 21:59:03 ORDER 1400: CT HEAD W/O CONT (LOINC: 94599-0)ORDER DATE: November 24, 2023 12:50:00 AM [facility] [facility]CT ABDOMEN/PELVIS [id number] 21:54:00 [facility] : 1975 Sex: F[address] [id number] IMAGING REPORTPatient Name: ROBERT, CONCEPTIONDate of Service: 13-10-5747Xmd: 48 Sex: F Order #: [id number] Room: ERSDOB: 1975 X-Ray Number: [id number] Record Number: [id number] Hospital Number: [id number] Physician: LAWRENCE MEJIASOrdering Physician: LAWRENCE MEJIASPROCEDURE: CT [...] YUNIOR MCKEON 2023-11-23 21:53:03 CT Abdomen and [id number] 21:53:03ORDER 1500: CT ABDOMEN/PELVIS WITHOUT (LOINC: 05541-3)ORDER DATE: November 24, 2023 12:50:00 AM [facility])[id number] 21:31:00* Test Item Value Reference Range Interpretation [...] 70-99 Fasting glucos e normal <100 MG/DL- [employer] recommendation CALCIUM (test code = [...] of age is not validated by the railcar foreman and may not represent the patients true [...] should be used in the calculation". CREATINE [id number] 21:31:00* Test Item Value Reference Range Interpretation Comme nts CK (test code = CK) 115 U/L 30-135 BLOOD ALCOHOL (ETOH)2023-11-23 21:31:00* Test Item Value Reference Range Interpretation Comme nts ALCOHOL BLOOD LEVEL (test code = ALC BLD) <10 MG/DL 0-10 Results ar e to be used for medical purposes (treatment) only. Not intended for non medical purposes. Ethanol [Mass/volume] in [id number] 21:30:00* Test Item Value Reference Range Interpretation Comme nts Ethanol [Mass/volume] in Blo od (test code = 5640-8) <10 0.0-10.0 [facility])Creatine kinase isoenzymes [interpretation] in 2023-11-23 21:30:00* Test Item Value Reference Range Interpretation Comme nts Creatine kinase isoenzymes [interpretation] in Serum or Plasma Narrative (test code = 50781-0) 115 U/L 30.0-135.0 [facility])Comprehensive metabolic 2000 panel - [...] total [Moles/volume] in Blood (test code = 61176-3) 24 MMOL/L 22.0-30.0 N Urea nitrogen [Mass/volume] in Serum or Plasma (test code = 3094-0) 16 MG/DL 7.0-17.0 N Creatinine [Mass/volume] in Blood (test code = 96912-5) 0.6 MG/DL 0.7-1.2 L Glucose [Mass/volume] in Blood (test code = 2339-0) 80 MG/DL 70.0-99.0 N Calcium [Mass/volume] in Serum or Plasma (test code = 13239-0) 10.3 MG/DL 8.4-10.2 H Protein [Mass/volume] in Serum or Plasma (test code = 2885-2) 9.9 G/DL 6.3-8.2 H Albumin [Presence] in Serum or Plasma (test code = 21758-2) 4.7 G/DL 3.5-5.0 N Bilirubin direct and total panel [Mass/volume] - Serum or Plasma (test code = 46682-5) 0.8 MG/DL 0.2-1.3 N Aspartate aminotransferase [Enzymatic [...] 50 percent [- Reported] (test code = 63683-1) 113.0 mL/min/1.73m2 N Anion gap in Serum or Plasma (test code = 82298-8) 13 mmol/L 4.0-12.0 H [facility])[id number] 21:15:00* Test Item Value Reference Range Interpretation [...] 1.2-7.2 CBC W Auto Differential panel - [id number] 21:15:00* Test Item Value Reference Range Interpretation Comme nts Leukocytes other [Identifier ] in Blood by Automated count (test code = 36959-1) 4.5 K/UL 3.5-10.9 N Erythrocytes [#/volume] in B lood (test code = 15161-9) 4.91 M/UL 4.0-5.0 N Hemoglobin A/Hemoglobin.tota l in Blood (test code = 4546-8) 13.8 G/DL 11.5-15.5 N Hematocrit [Volume Fraction] of Blood (test code = 68088-0) 42.4 % 34.0-46.0 N Erythrocyte mean corpuscular volume [Entitic volume] (test code = 88089-6) 86.4 FL 80.0-98.0 N Erythrocyte mean corpuscular hemoglobin [Entitic mass] (test code = 98040-2) 28.1 PG 28.0-32.0 N Erythrocyte mean corpuscular hemoglobin concentration [Mass/volume] (test code = 06153-4) 32.5 G/DL 32.5-36.5 N Erythrocyte distribution wid th [Ratio] (test code = 50251-6) 14.9 % 11.5-14.5 H Platelets panel - Blood by Automated count (test code = 77391-6) 124 K/UL 150.0-450.0 L Platelet mean volume [Entiti c volume] in Blood by Automated count (test code = 00356-3) 10.0 FL 7.4-10.4 N Neutrophils.segmented/100 leukocytes in Blood (test code = 82931-8) 53.3 % 40.0-75.0 N Lymphocytes Variant/100 leuk ocytes in Blood (test code = 81240-7) 33.9 % 24.0-44.0 N Lymphocytes+Monocytes/100 leukocytes in Blood (test code = 4662-3) 10.0 % 0.0-13.0 N Eosinophils [#/volume] in Bl ood (test code = 10537-9) 2.2 % 0.0-4.0 N Basophils [#/volume] in Bloo d (test code = 26475-5) 0.4 % 0.0-2.0 N Immature granulocytes/100 leukocytes in Blood (test code = 99931-6) 0.2 % 0.0-1.0 N Nucleated erythrocytes [#/vo lume] in Blood (test code = 42367-6) 0 /100 WBC N Neutrophils [#/volume] in Bl ood (test code = 72079-9) 2.4 K/UL 1.2-7.2 N [facility]PAP TEST, THINPREP, [id number] 16:02:24* Test Item Value Reference Range Interpretation Comme nts SOURCE: (test code = 8001) Cervical/Endoce rvical SLIDES: (test code = 8011) 1 LMP: (test code = 8021) SEE NOTE POST MENOPAUSAL SPECIMEN ADEQUACY: (test code = 16706) (NOTE) Satisfactory for evaluation. Endocervical cells/transformation zone component present. INTERPRETATION: (test code = 39774) NILM/NO EPITH. ABNORMALITY;SEE BELOW --- - NEGATIVE FOR INTRAEPITHELIAL LESION OR MALIGNANCY (NILM) ---- LEDGER CLERK : (test code = 8101) Jami Smalls LOCATION: (test code = 34972) (NOTE) Specimens proces sed and interpreted at [facility], [address] [place] [id number], , CLIA: [id number] CPT: (test code = 8140) (NOTE) 59186 UNLESS OTH ERWISE INDICATED, COMPUTER AIDED AND LEDGER CLERK SCREENING PERFORMED. The Pap test is a screening test with an inherent, but low probability of error. Your patient should be reminded to consult you immediately if she experiences any suspicious signs or symptoms, regardless of her Pap test result. An alternate report format containing images or consolidated prior Pap history is available as applicable. HPV HIGH RISK WITH GENOTYPE, [id number] 15:53:52* Test Item Value Reference Range Interpretation Comme nts HPV HIGH RISK INTERP (test code = 36942) NEGATIVE NEGATIVE HPV 16 (test code = 53223) NEGATIVE HPV 18 (test code = 74186) NEGATIVE HPV, HR, OTHER GENOTYPES (test code = 40604) NEGATIVE Testing [facility] is real-time PCR [...] TESTING PERFORMED AT [facility] [address] [place] [id number] LEARNING ANALYST: JATIN FELIPE M.D. CLIA NUMBER [id number] [facility] [place]. [id number] HPV HIGH RISK WITH GENOTYPE, [id number] 00:00:00* Test Item Value Reference Range Interpretation Comme [facility] HPV HIGH RISK INTERP (test c ode = 34482) NEGATIVE HPV 16 (test code = 25054) NEGATIVE HPV 18 (test code = 44262) NEGATIVE HPV, HR, OTHER GENOTYPES (te st code = 14327) NEGATIVE PDFE (test code = PDFReport) PDF Henry ContrerasPAP TEST, THINPREP, [id number] 00:00:00* Test Item Value Reference Range Interpretation Comme [facility] SOURCE: (test code = 8001) Cervical/Endocervical SLIDES: (test code = 8011) 1 LMP: (test code = 8021) SEE NOTE SPECIMEN ADEQUACY: (test code = 28797) (NOTE) INTERPRETATION: (test code = 67368) NILM/NO EPITH. ABNORMALITY;SEE BELOW LEDGER CLERK: (test code = 8101) Jami Smalls LOCATION: (test code = 55059) (NOTE) CPT: (test code = 8140) (NOTE) Henry ContrerasHPV HIGH RISK WITH GENOTYPE, [id number] 00:00:00* Test Item Value Reference Range Interpretation Comme [facility] HPV HIGH RISK INTERP (test c ode = 60102) NEGATIVE HPV 16 (test code = 99002) NEGATIVE HPV 18 (test code = 38913) NEGATIVE HPV, HR, OTHER GENOTYPES (te st code = 28649) NEGATIVE PDFE (test code = PDFReport) PDF Henry ContrerasPAP TEST, THINPREP, [id number] 00:00:00* Test Item Value Reference Range Interpretation Comme nts SOURCE: (test code = 8001) Cervical/Endocervical SLIDES: (test code = 8011) 1 LMP: (test code = 8021) SEE NOTE SPECIMEN ADEQUACY: (test code = 54911) (NOTE) INTERPRETATION: (test code = 11531) NILM/NO EPITH. ABNORMALITY;SEE BELOW LEDGER CLERK: (test code = 8101) Jami Smalls LOCATION: (test code = 56584) (NOTE) CPT: (test code = 8140) (NOTE) Henry ContrerasHPV HIGH RISK WITH GENOTYPE, [id number] 00:00:00* Test Item Value Reference Range Interpretation Comme nts HPV HIGH RISK INTERP (test c ode = 56597) NEGATIVE HPV 16 (test code = 65868) NEGATIVE HPV 18 (test code = 02364) NEGATIVE HPV, HR, OTHER GENOTYPES (te st code = 73081) NEGATIVE PDFE (test code = PDFReport) PDF Henry ContrerasPAP TEST, THINPREP, [id number] 00:00:00* Test Item Value Reference Range Interpretation Comme nts SOURCE: (test code = 8001) Cervical/Endocervical SLIDES: (test code = 8011) 1 LMP: (test code = 8021) SEE NOTE SPECIMEN ADEQUACY: (test code = 82924) (NOTE) INTERPRETATION: (test code = 58886) NILM/NO EPITH. ABNORMALITY;SEE BELOW LEDGER CLERK: (test code = 8101) Jami Smalls LOCATION: (test code = 30632) (NOTE) CPT: (test code = 8140) (NOTE) Henry ContrerasPAP TEST, THINPREP, IMAGED [ADDED]2023-10-10 00:00:00* Test Item Value Reference Range Interpretation Comme nts SOURCE: (test code = 8001) Unspecified SLIDES: (test code = 8011) 2 LMP: (test code = 8021) NOT GIVEN SPECIMEN ADEQUACY: (test code = 38702) (NOTE) INTERPRETATION: (test code = 51914) UNSATISFACTORY; SEE BELOW OTHER COMMENTS: (test code = 8081) (NOTE) LEDGER CLERK: (test code = 8101) Jose Bustillos QC TECHNOLOGIST: (test code = 8111) RAUL Wilde(ASCP),IAC LOCATION: (test code = 93600) (NOTE) CPT: (test code = 8140) (NOTE) Henry F AustinHPV HIGH RISK IF ASC/LSIL, THINPREP [ADDED]2023-10-10 00:00:00* Test Item Value Reference Range Interpretation Comme nts HPV HIGH RISK IF ASC/LSIL, THINPREP (test code = 52787) CRITERIA NOT MET Henry F AustinPAP TEST, THINPREP, IMAGED [ADDED]2023-10-10 00:00:00* Test Item Value Reference Range Interpretation Comme nts SOURCE: (test code = 8001) Unspecified SLIDES: (test code = 8011) 2 LMP: (test code = 8021) NOT GIVEN SPECIMEN ADEQUACY: (test code = 37428) (NOTE) INTERPRETATION: (test code = 98911) UNSATISFACTORY; SEE BELOW OTHER COMMENTS: (test code = 8081) (NOTE) LEDGER CLERK: (test code = 8101) Jose Bustillos QC TECHNOLOGIST: (test code = 8111) RAUL Wilde(ASCP),IAC LOCATION: (test code = 34301) (NOTE) CPT: (test code = 8140) (NOTE) Henry F AustinHPV HIGH RISK IF ASC/LSIL, THINPREP [ADDED]2023-10-10 00:00:00* Test Item Value Reference Range Interpretation Comme nts HPV HIGH RISK IF ASC/LSIL, THINPREP (test code = 90596) CRITERIA NOT MET Henry F AustinPAP TEST, THINPREP, IMAGED [ADDED]2023-10-10 00:00:00* Test Item Value Reference Range Interpretation Comme nts SOURCE: (test code = 8001) Unspecified SLIDES: (test code = 8011) 2 LMP: (test code = 8021) NOT GIVEN SPECIMEN ADEQUACY: (test code = 72717) (NOTE) INTERPRETATION: (test code = 42200) UNSATISFACTORY; SEE BELOW OTHER COMMENTS: (test code = 8081) (NOTE) LEDGER CLERK: (test code = 8101) Jose Bustillos TECHNOLOGIST: (test code = 8111) Jason Whitman,SCT(ASCP),IAC LOCATION: (test code = 97310) (NOTE) CPT: (test code = 8140) (NOTE) Henry Quiles AustinHPV HIGH RISK IF ASC/LSIL, THINPREP [ADDED]2023-10-10 00:00:00* Test Item Value Reference Range Interpretation Comme nts HPV HIGH RISK IF ASC/LSIL, THINPREP (test code = 34931) CRITERIA NOT MET Henry Quiles AustinGONORRHEA, NAAT, THINPREP [ADDED]2023-10-08 00:00:00* Test Item Value Reference Range Interpretation Comme nts GONORRHEA, NAAT, THINPREP (t est code = 34604) NEGATIVE Henry Quiles AustinCHLAMYDIA, NAAT, THINPREP [ADDED]2023-10-08 00:00:00* Test Item Value Reference Range Interpretation Comme nts CHLAMYDIA, NAAT, THINPREP (t est code = 18190) NEGATIVE PDFE (test code = PDFReport) PDF Henry Quiles AustinGONORRHEA, NAAT, THINPREP [ADDED]2023-10-08 00:00:00* Test Item Value Reference Range Interpretation Comme nts GONORRHEA, NAAT, THINPREP (t est code = 62433) NEGATIVE Henry Quiles AustinCHLAMYDIA, NAAT, THINPREP [ADDED]2023-10-08 00:00:00* Test Item Value Reference Range Interpretation Comme nts CHLAMYDIA, NAAT, THINPREP (t est code = 51558) NEGATIVE PDFE (test code = PDFReport) PDF Henry Quiles AustinGONORRHEA, NAAT, THINPREP [ADDED]2023-10-08 00:00:00* Test Item Value Reference Range Interpretation Comme nts GONORRHEA, NAAT, THINPREP (t est code = 43805) NEGATIVE Henry Quiles AustinCHLAMYDIA, NAAT, THINPREP [ADDED]2023-10-08 00:00:00* Test Item Value Reference Range Interpretation Comme nts CHLAMYDIA, NAAT, THINPREP (t est code = 01717) NEGATIVE PDFE (test code = PDFReport) PDF HenryTRISTAN Tom [id number] 08:14:44* Test Item Value Reference Range Interpretation Comme shaina ALCALA, THIRD GENERATION (test code = 2821) 5.200 UIU/ML 0.400-4.100 H UNLESS OTHERWISE INDICATED, ALL TESTING PERFORMED AT [facility] [address] [place] [address] LEARNING ANALYST: JATIN FELIPE M.D. [place] NUMBER [id number] [facility] [place] [place]. [id number] 00:00:00* Test Item Value Reference Range Interpretation Comme shaina TSH, THIRD GENERATION (test code = 2821) 5.200 UIU/ML Henry [id number] 00:00:00* Test Item Value Reference Range Interpretation Comme nts TSH, THIRD GENERATION (test code = 2821) 5.200 UIU/ML Henry [id number] 00:00:00* Test Item Value Reference Range Interpretation Comme shaina ALCALA, THIRD GENERATION (test code = 2821) 5.200 UIU/ML TRISTAN Grover [id number] 23:53:27* Test Item Value Reference Range Interpretation Comme shaina TSH, THIRD GENERATION (test code = 2821) 11.100 UIU/ML 0.400-4.100 H COMPREHENSIVE METABOLIC [id number] 23:46:03* Test Item Value Reference Range Interpretation Comme shaina GLUCOSE (test code = 2217) 97 MG/DL 70-99 BUN (test code = 2208) 7 MG/DL 6-20 CREATININE (test code = 2214) 0.61 MG/DL 0.60-1.30 eGFR (2020 CKD-EPI) (test code = 45327) 110 ML/MIN/1.73 >60 CALC BUN/CREAT (test code [...] 13 U/L 5-40 CBC W/AUTO DIFF WITH [id number] 08:48:44* Test Item Value Reference Range Interpretation [...] 0.00-0.10 ABS NUCLEATED RBCS (test code = 62170) 0.00 K/UL 0.00-0.11 UNLESS OTHER MONTOYA INDICATED, ALL TESTING PERFORMED AT [facility] [address] [place] [address] LEARNING ANALYST: Derek FINNIA NUMBER [id number] [facility] [place]. [id number] 00:00:00* Test Item Value Reference Range Interpretation Comme nts TSH, THIRD GENERATION (test code = 2821) 11.100 UIU/ML Henry Etta BenCBC W/AUTO [id number] 00:00:00* Test Item Value Reference Range Interpretation [...] ABS NUCLEATED RBCS (test cod e = 38692) 0.00 K/UL Henry ContrerasCOMPREHENSIVE METABOLIC [id number] 00:00:00* Test Item Value Reference Range Interpretation Comme nts GLUCOSE (test code = 2217) 97 MG/DL BUN (test code = 2208) 7 MG/DL CREATININE (test code = 2214) 0.61 MG/DL eGFR (2020 CKD-EPI) (test code = 08030) 110 ML/MIN/1.73 CALC BUN/CREAT (test code = [...] (test code = 2219) 13 U/L Henry [id number] 00:00:00* Test Item Value Reference Range Interpretation Comme nts TSH, THIRD GENERATION (test code = 2821) 11.100 UIU/ML Henry ContrerasCBC W/AUTO [id number] 00:00:00* Test Item Value Reference Range Interpretation [...] ABS NUCLEATED RBCS (test cod e = 69376) 0.00 K/UL Henry Quiles AustinCOMPREHENSIVE METABOLIC [id number] 00:00:00* Test Item Value Reference Range Interpretation Comme nts GLUCOSE (test code = 2217) 97 MG/DL BUN (test code = 2208) 7 MG/DL CREATININE (test code = 2214) 0.61 MG/DL eGFR (2020 CKD-EPI) (test code = 71324) 110 ML/MIN/1.73 CALC BUN/CREAT (test code = [...] (test code = 2219) 13 U/L Henry [id number] 00:00:00* Test Item Value Reference Range Interpretation Comme nts TSH, THIRD GENERATION (test code = 2821) 11.100 UIU/ML Henry ContrerasCBC W/AUTO [id number] 00:00:00* Test Item Value Reference Range Interpretation [...] ABS NUCLEATED RBCS (test cod e = 65681) 0.00 K/UL Henry ContrerasCOMPREHENSIVE METABOLIC [id number] 00:00:00* Test Item Value Reference Range Interpretation Comme nts GLUCOSE (test code = 2217) 97 MG/DL BUN (test code = 2208) 7 MG/DL CREATININE (test code = 2214) 0.61 MG/DL eGFR (2020 CKD-EPI) (test code = 80159) 110 ML/MIN/1.73 CALC BUN/CREAT (test code = [...] (test code = 2219) 13 U/L Henry ContrerasUmkfkxRWLHAEGINHD0514-05-10 01:13:06* Test Item Value Reference Range Interpretation Comme nts TRANSFERRIN (test code = 4936) 315 MG/DL 200-360 UNLESS OTHERWISE INDICATED, ALL TESTING PERFORMED AT [facility] [address] [place] [address] LEARNING ANALYST: JATIN FELIPE M.D. CLIA NUMBER [id number] [facility] [place] [place]. [id number] LIPID [id number] 01:12:48* Test Item Value Reference Range Interpretation [...] SPECIMENS. FOR MOREINFORMATION, SEE CLIENT ANNOUNCEMENT AT [email or web address] RISK RATIO LDL/HDL (test code = 2237) 1.34 RATIO <3.22 COMPREHENSIVE METABOLIC [id number] 01:12:48* Test Item Value Reference Range Interpretation [...] IRON BINDING CAPACITY AND IRON AND % [id number] 01:12:48* Test Item Value Reference Range Interpretation Comme nts IRON, SERUM (test code = 2221) 51 UG/DL 37-145 UNSATURATED IBC (test code = 62822) 356 UG/DL 112-347 H CALC TOTAL IBC (test code = 2076) 407 UG/DL 250-450 CALC % IRON SAT (test code = 2078) 13 % 20-50 L [id number] 00:59:24* Test Item Value Reference Range Interpretation Comme nts FERRITIN (test code = 2074) 20 NG/ML 13-200 LIPID [id number] 00:00:00* Test Item Value Reference Range Interpretation Comme nts CHOLESTEROL (test code = 2210) 191 MG/DL TRIGLYCERIDES (test code = 2232) 89 MG/DL HDL CHOLESTEROL (test code = 2220) 74 MG/DL CALC LDL CHOL (test code = 2237) 99 MG/DL RISK RATIO LDL/HDL (test cod e = 2238) 1.34 RATIO Henry Quiles BenCOMPREHENSIVE METABOLIC [id number] 00:00:00* Test Item Value Reference Range Interpretation Comme nts GLUCOSE (test code = 2217) 92 MG/DL BUN (test code = 2208) 15 MG/DL CREATININE (test code = 2214) 0.65 MG/DL eGFR (2020 CKD-EPI) (test code = 55332) 108 ML/MIN/1.73 CALC BUN/CREAT (test code = [...] BenIRON BINDING CAPACITY AND IRON AND % [id number] 00:00:00* Test Item Value Reference Range Interpretation Comme nts IRON, SERUM (test code = 2221) 51 UG/DL UNSATURATED IBC (test code = ) 356 UG/DL CALC TOTAL IBC (test code = 2076) 407 UG/DL CALC % IRON SAT (test code = 2078) 13 % Henry [id number] 00:00:00* Test Item Value Reference Range Interpretation Comme nts FERRITIN (test code = 2074) 20 NG/ML Henry [id number] 00:00:00* Test Item Value Reference Range Interpretation Comme nts TRANSFERRIN (test code = 4936) 315 MG/DL Henry ContrerasLIPID [id number] 00:00:00* Test Item Value Reference Range Interpretation Comme nts CHOLESTEROL (test code = 2210) 191 MG/DL TRIGLYCERIDES (test code = 2232) 89 MG/DL HDL CHOLESTEROL (test code = 2220) 74 MG/DL CALC LDL CHOL (test code = 2237) 99 MG/DL RISK RATIO LDL/HDL (test cod e = 2238) 1.34 RATIO Henry ContrerasCOMPREHENSIVE METABOLIC [id number] 00:00:00* Test Item Value Reference Range Interpretation Comme nts GLUCOSE (test code = 2217) 92 MG/DL BUN (test code = 2208) 15 MG/DL CREATININE (test code = 2214) 0.65 MG/DL eGFR (2020 CKD-EPI) (test code = 42403) 108 ML/MIN/1.73 CALC BUN/CREAT (test code = [...] ContrerasIRON BINDING CAPACITY AND IRON AND % [id number] 00:00:00* Test Item Value Reference Range Interpretation Comme nts IRON, SERUM (test code = 2221) 51 UG/DL UNSATURATED IBC (test code = ) 356 UG/DL CALC TOTAL IBC (test code = 2076) 407 UG/DL CALC % IRON SAT (test code = 2078) 13 % Henry [id number] 00:00:00* Test Item Value Reference Range Interpretation Comme nts FERRITIN (test code = 2074) 20 NG/ML Henry Quiles [id number] 00:00:00* Test Item Value Reference Range Interpretation Comme nts TRANSFERRIN (test code = 4936) 315 MG/DL Henry ContrerasLIPID [id number] 00:00:00* Test Item Value Reference Range Interpretation Comme nts CHOLESTEROL (test code = 2210) 191 MG/DL TRIGLYCERIDES (test code = 2232) 89 MG/DL HDL CHOLESTEROL (test code = 2220) 74 MG/DL CALC LDL CHOL (test code = 7) 99 MG/DL RISK RATIO LDL/HDL (test cod e = 2238) 1.34 RATIO Henry ContrerasCOMPREHENSIVE METABOLIC [id number] 00:00:00* Test Item Value Reference Range Interpretation Comme nts GLUCOSE (test code = 7) 92 MG/DL BUN (test code = 2208) 15 MG/DL CREATININE (test code = 2214) 0.65 MG/DL eGFR (2020 CKD-EPI) (test code = 26087) 108 ML/MIN/1.73 CALC BUN/CREAT (test code = [...] ContrerasIRON BINDING CAPACITY AND IRON AND % [id number] 00:00:00* Test Item Value Reference Range Interpretation Comme nts IRON, SERUM (test code = 2222) 51 UG/DL UNSATURATED IBC (test code = 47403) 356 UG/DL CALC TOTAL IBC (test code = 207) 407 UG/DL CALC % IRON SAT (test code = 207) 13 % Henry [id number] 00:00:00* Test Item Value Reference Range Interpretation Comme nts FERRITIN (test code = 2075) 20 NG/ML Henry [id number] 00:00:00* Test Item Value Reference Range Interpretation Comme nts TRANSFERRIN (test code = 4936) 315 MG/DL Henry ContrerasHEMOGLOBIN [id number] 03:08:40* Test Item Value Reference Range Interpretation Comme nts HEMOGLOBIN A1c (test code = 11556) 5.5 % 4.2-5.6 CBC W/AUTO DIFF WITH [id number] 02:29:36* Test Item Value Reference Range Interpretation [...] 0.00-0.10 ABS NUCLEATED RBCS (test code = 77699) 0.00 K/UL 0.00-0.11 CBC W/AUTO [id number] 00:00:00* Test Item Value Reference Range Interpretation [...] ABS NUCLEATED RBCS (test cod e = 58260) 0.00 K/UL Henry Quiles AustinHEMOGLOBIN [id number] 00:00:00* Test Item Value Reference Range Interpretation Comme nts HEMOGLOBIN A1c (test code = 46965) 5.5 % Henry ContrerasCBC W/AUTO [id number] 00:00:00* Test Item Value Reference Range Interpretation [...] ABS NUCLEATED RBCS (test cod e = 70305) 0.00 K/UL Henry Quiles AustinHEMOGLOBIN [id number] 00:00:00* Test Item Value Reference Range Interpretation Comme nts HEMOGLOBIN A1c (test code = 78338) 5.5 % Henry ContrerasCBC W/AUTO [id number] 00:00:00* Test Item Value Reference Range Interpretation [...] ABS NUCLEATED RBCS (test cod e = 10003) 0.00 K/UL Henry ContrerasHEMOGLOBIN [id number] 00:00:00* Test Item Value Reference Range Interpretation Comme nts HEMOGLOBIN A1c (test code = 40743) 5.5 % Henry ContrerasDRUGS OF [id number] 05:03:00* Test Item Value Reference Range Interpretation [...] 200 ng/mL Opiates 300 ng/mL URINALYSIS WITH [id number] 04:56:00* Test Item Value Reference Range Interpretation [...] (test code = USPERM) /HPF NONE URINE [id number] 04:53:00* Test Item Value Reference Range Interpretation [...] the FDA and the [employer] ([employer]) are more stringent than those required for this test. Therefore, the result should be interpreted with caution and close attention to other clinical and epidemiological data [id number] 16:00:00* Test Item Value Reference Range Interpretation Comme nts SALICYLATE (test code = 94B) <3.0 mg/dL 15.0-30.0 L LIVER [id number] 15:49:00* Test Item Value Reference Range Interpretation [...] code = 31A) <7 IU/L 10-49 L [id number] 15:48:00* Test Item Value Reference Range Interpretation [...] to interpret this result as normal/abnormal. 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 Old healed fractures of the distal tibia and fibular noted.Soft tissues: Unremarkable.IMPRESSION: No acute findings.Electronically signed by: Nikko Santiago MD 11/04/2022 3:10 PM CDT [id number] BEDSIDE [id number] 11:51:00* Test Item Value Reference Range Interpretation Comme nts GLUCOSE BEDSIDE TESTING (karen t code = GLUBED) 79 MG/DL 70-119 N GLUCOSE BEDSIDE [id number] 06:23:00* Test Item Value Reference Range Interpretation Comme nts GLUCOSE BEDSIDE TESTING (karen t code = GLUBED) 80 MG/DL 70-119 N BASIC METABOLIC [id number] 05:12:00* Test Item Value Reference Range Interpretation [...] 2.0 <2.0 indicates None DetectedPerformed At: [facility] [address] [id number] Michael Reeves MD Ph:[phone] GLUCOSE BEDSIDE [id number] 19:51:00* Test Item Value Reference Range Interpretation Comme nts GLUCOSE BEDSIDE TESTING (karen t code = GLUBED) 129 MG/DL 70-119 H OSMOLALITY [id number] 17:56:00* Test Item Value Reference Range Interpretation Comme nts OSMOLALITY SERUM (test code = OSMO) 269 mOsm/kg 275-300 L THYROID STIMULATING [id number] 17:56:00* Test Item Value Reference Range Interpretation Comme nts THYROID STIMULATING HORMONE (test code = TSH) 4.190 mc IU/ML 0.340-4.820 N GLUCOSE BEDSIDE [id number] 15:49:00* Test Item Value Reference Range Interpretation [...] code = VALP) 37.5 mcG/ML 50.0-100.0 L [id number] 14:26:00* Test Item Value Reference Range Interpretation Comme nts AMMONIA (test code = AMM) 29.0 mcMOL/L 11.0-32.0 N GLUCOSE BEDSIDE [id number] 11:51:00* Test Item Value Reference Range Interpretation Comme nts GLUCOSE BEDSIDE TESTING (karen t code = GLUBED) 88 MG/DL 70-119 N GLYCOSYLATED HEMOGLOBIN (HA1C)2022-09-18 06:53:00* Test Item Value Reference Range Interpretation Comme nts GLYCOSYLATED HEMOGLOBIN (HA1 C) (test code = GLYHGB) 5.2 % IS-A1C 4.5-5.6 N ESTIMATED AVERAGE [id number] 06:53:00* Test Item Value Reference Range Interpretation [...] to interpret this result as normal/abnormal. UR [id number] 21:28:00* Test Item Value Reference Range Interpretation Comme nts UR SODIUM RANDOM (test code = JESUSITA) 93 mmol/L 40-200 N UR POTASSIUM RANDOM (test code = KU) 54.8 mmol/L 25-125 N NO ESTABLISHED NORMAL RANGES FOR RANDOM SPECIMENS. UR CHLORIDE RANDOM (test code = CLU) 164 mmol/L 110-150 H UR OSMOLALITY [id number] 21:28:00* Test Item Value Reference Range Interpretation Comme nts UR OSMOLALITY RANDOM (test c ode = OSMOU) 475 mOsm/kg 100-1400 N CBC W/O [id number] 20:05:00* Test Item Value Reference Range Interpretation [...] = MPV) 9.5 fL 6.8-11.2 N LACTIC [id number] 19:35:00* Test Item Value Reference Range Interpretation Comme nts LACTIC ACID (test code = LACT) 1.0 mmol/L 0.4-2.0 N HCG SERUM [id number] 19:31:00* Test Item Value Reference Range Interpretation Comme nts HCG SERUM QUAL (test code = HCGQL) Negative SCREEN NEG - CT HEAD/BRAIN W/O [id number] 18:59:00 [facility] : 1975 Sex: F Patient Name: BHUMIKA JONES Unit No: [id number] EXAMS: CPT CODE: [id number] CT HEAD/BRAIN W/O CONT 94590 Location: H3 CT head, conducted on 09/17/22 at 1837 hours COMPARISON EXAMS:Head CT exam of09/17/22 at 00:06 hours TECHNIQUE: CT examination of the brain was performed without contrast on [facility] scanner. Scanning conducted from skull [...] Marie(Abner)(CT) CTDI: DLP: Trnscrpt: 09/17/2022 (1858) [email or web address] [facility] NAME: JONES [address] PHYS: Valentina [place] [address] : 1975 AGE: 47 SEX: F LOC: JOSHUA 20 PHONE #: [phone] EXAM DATE: 09/17/2022 STATUS: ADM IN FAX #: [phone] RAD #: D/C DT PAGE 1 Signed Report Patient Name: SILAS JONESPCION Unit No: [id number] EXAMS: CPT CODE: [id number] CT HEAD/BRAIN W/O CONT [id number] (Continued) Orig Print D/T: S: 09/17/2022 (1902) DENIZ Lguo NAME: ROBERT[address] PHYS: Valentina Matt[place] [address] : 1975 AGE: 47 SEX: F LOC: JOSHUA 20 PHONE #: [phone] EXAM DATE: 09/17/2022 STATUS: ADM IN FAX #: [phone] RAD #: D/C DT PAGE 2 Signed ReportURINALYSIS [id number] 16:28:00* Test Item Value Reference Range Interpretation [...] >0 /UL NONE-SQepi DRUGS OF ABUSE SCREEN [id number] 16:28:00* Test Item Value Reference Range Interpretation [...] interpret this result as normal/abnormal. TROP-I HIGH [id number] 16:26:00* Test Item Value Reference Range Interpretation [...] and URLs may vary bymethod. BASIC METABOLIC [id number] 16:25:00* Test Item Value Reference Range Interpretation [...] interpret this result as normal/abnormal. HEPATIC FUNCTION [id number] 16:25:00* Test Item Value Reference Range Interpretation [...] ode = CK) 92 Unit/L 26-192 N [id number] 16:25:00* Test Item Value Reference Range Interpretation Comme nts LIPASE (test code = LIP) 57 Unit/L 114-286 L - CT HEAD/BRAIN W/O [id number] 00:32:00 [facility] BHUMIKA JONES : 1975 Sex: F Patient Name: BHUMIKA JONES Unit No: [id number] EXAMS: CPT CODE: [id number] CT HEAD/BRAIN W/O CONT 08064 EXAM: - CT HEAD/BRAIN W/O CONT LOCATION: [...] August CTDI: DLP: Trnscrpt: 09/17/2022 (003) [email or web address] formerly [facility] NAME: BHUMIKA JONES [address] [place] [address] Blvd PHYS: [email or web address] - Asim [place], [place] [address] : 1975 AGE: 47 SEX: F LOC: [facility] PHONE #: [phone] EXAM DATE: 09/16/2022 STATUS: REG ER FAX #: [phone] RAD #: D/C DT PAGE1 Signed Report Patient Name: BHUMIKA JONES Unit No: [id number] EXAMS: CPT CODE: [id number] CT HEAD/BRAIN W/O CONT 23336 (Continued) Orig Print D/T: S: 09/17/2022 (0035) DENIZ Lugo NAME: BHUMIKA JONES [address] [place] [address] PHYS: YASMIN Asim Jack [place] [id number] : 1975 AGE: 47 SEX: F LOC: [facility] PHONE #: [phone] EXAM DATE: 09/16/2022 STATUS: REG ER FAX #: [phone] RAD #: D/C DT PAGE 2 Signed ReportTROP-I HIGH [id number] 00:13:00* Test Item Value Reference Range Interpretation [...] and URLs may vary bymethod. COMPREHENSIVE METABOLIC [id number] 00:11:00* Test Item Value Reference Range Interpretation [...] interpret this result as normal/abnormal. CBC W/AUTO [id number] 23:59:00* Test Item Value Reference Range Interpretation [...] K/mm3 0.0-0.05 N - XR CHEST 1 [id number] 23:34:00 [facility] Refugio: BHUMIKA JONES : 1975 Sex: [place]: St: PRE -- Patient Name: BHUMIKA JONES Unit No: [id number] EXAMS: CPT CODE: [id number] XR CHEST 1 V 66519 EXAMINATION: - XR CHEST 1 V CLINICAL [...] By: [email or web address] Orig Print D/T: S: 09/16/2022 (2518) DENIZ Lugo NAME: SILAS JONESPCION [address] [place] [address] Bl PHYS: [email or web address] - Asim Jack MD, [place] [address] : 1975 AGE: 47 SEX: F LOC: B.ERS PHONE #: [phone] EXAM DATE: 09/16/2022 STATUS: PRE ER FAX #: [phone] RAD NO: DC Dt: PAGE 1 Signed ReportCARBAMAZEPINE (TEGRETOL) 2022-09-15 06:12:00* Test Item Value Reference Range Interpretation Comme nts CARBAMAZEPINE (TEGRETOL) (test code = CARB) 1.5 ug/mL 4.0-12.0 L In conjunction w ith other antiepileptic drugs Therapeutic 4.0 - 8.0 Toxicity 9.0 - 12.0 Carbamazepine alone Therapeutic 8.0 - 12.0 Detection Limit = 2.0 <2.0 indicates None DetectedPerformed At: [facility] [id number] [place], [place] [id number] Michael Reeves MD Ph:[phone] VALPROIC ACID (DEPAKENE)2022-09-15 06:12:00* Test Item Value Reference Range Interpretation Comme nts VALPROIC ACID (DEPAKENE) (te st code = VALP) 80.6 mcG/ML 50.0-100.0 N COMPREHENSIVE METABOLIC [id number] 06:00:00* Test Item Value Reference Range Interpretation [...] interpret this result as normal/abnormal. CBC W/AUTO [id number] 05:37:00* Test Item Value Reference Range Interpretation [...] NRBC#) 0.00 K/mm3 0.0-0.05 N GLUCOSE BEDSIDE [id number] 20:03:00* Test Item Value Reference Range Interpretation Comme nts GLUCOSE BEDSIDE TESTING (karen t code = GLUBED) 117 MG/DL 70-119 N DRUGS OF ABUSE SCREEN [id number] 11:42:00* Test Item Value Reference Range Interpretation [...] result as normal/abnormal. - CT HEAD/BRAIN W/O [id number] 11:37:00 [facility] : 1975 Sex: F Patient Name: BHUMIKA JONES Unit No: [id number] EXAMS: CPT CODE: [id number] CT HEAD/BRAIN W/O CONT 73246 EXAMINATION: - CT HEAD/BRAIN W/O CONT COMPARISON: None HISTORY: Seizure LOCATION CODE: [id number]: CT of the Brain without contrast. Axial [...] MD; Jim Jaimes MD Dictated Date/Time: 09/14/2022 (4882) Technologist: ASUNCION CASTELLANO CTDI: DLP: Trnscrpt: 09/14/2022 (9763) [id number] DENIZ Luog NAME: BHUMIKA JONES [facility] PHYS: Vladimir Menchaca MD [address] [place] [address] : 1975 AGE: 47 SEX: Etta [place] [address] LOC: NEHA 10 PHONE #: [phone] EXAM DATE: 09/14/2022 STATUS: ADM IN FAX #: [phone] RAD #: D/C DT PAGE 1 Signed Report Patient Name: BHUMIKA JONES Unit No: [id number] EXAMS: CPT CODE: [id number] CT HEAD/BRAIN W/O CONT 36138 (Continued) Orig Print D/T: S: 09/14/2022 (1140) DENIZ Lugo NAME: BHUMIKA JONES MEDICAL IMAG[facility] PHYS: Vladimir Menchaca MD [address] [place] [address] : 1975 AGE: 47 SEX: F [place] [address] LOC: NEHA 10 PHONE #: [phone] EXAM DATE: 09/14/2022 STATUS: ADM IN FAX #: [phone] RAD #: D/C DT PAGE 2 Signed Report PT AND [id number] 06:51:00* Test Item Value Reference Range Interpretation [...] AVOIDED DUE TO POSSIBLE HEPARINCONTAMINATION HCG SERUM [id number] 06:51:00* Test Item Value Reference Range Interpretation [...] CK) 268 Unit/L 26-192 H CBC W/AUTO [id number] 03:43:00* Test Item Value Reference Range Interpretation [...] = NRBC#) 0.00 K/mm3 0.0-0.05 N URINALYSIS [id number] 03:41:00* Test Item Value Reference Range Interpretation [...] RARE /LPF NONE - XR CHEST 2 [id number] 02:06:00 [facility] : 1975 Sex: F FAX: Suleman Carvalho RUTH [phone] [place]: E St: REG Patient Name: BHUMIKA JONES Unit No: [id number] EXAMS: CPT CODE: [id number] XR CHEST 2 V 88439 EXAM: - XR CHEST 2 V HISTORY: [...] D/T: S: 09/14/2022 (020) DENIZ Lugo NAME: ROB[address] PHYS: GISEL - Deven,Suleman Lugo, [place] [address] : 1975 AGE: 47 SEX: F LOC: MARCOS PHONE #: [phone] EXAM DATE: 09/14/2022 STATUS: REG ERFAX #: [phone] RAD NO: DC Dt: PAGE 1 Signed ReportCOMPREHENSIVE METABOLIC [id number] 12:49:00* Test Item Value Reference Range Interpretation [...] used to interpret this result as normal/abnormal. [id number] 12:49:00* Test Item Value Reference Range Interpretation Comme nts MAGNESIUM (test code = MAG) 1.7 MG/DL 1.6-2.6 N CBC W/AUTO [id number] 12:36:00* Test Item Value Reference Range Interpretation [...] RARE /LPF NONE DRUGS OF ABUSE SCREEN [id number] 00:33:00* Test Item Value Reference Range Interpretation [...] 300 ng/mL UA RFLX MICR CULT IF [id number] 00:30:00* Test Item Value Reference Range Interpretation [...] culture: Suprapubic PainSpecimen Description: CLEAN CATCHBASIC METABOLIC [id number] 00:18:00* Test Item Value Reference Range Interpretation [...] 8.9 mg/dl 8.0-10.5 N HEPATIC FUNCTION PANEL [id number] 00:18:00* Test Item Value Reference Range Interpretation [...] ALKP) 113 Units/L 50.0-136.0 N HCG SERUM [id number] 00:18:00* Test Item Value Reference Range Interpretation Comme nts HCG SERUM QUAL (test code = HCGQL) NEGATIVE NEGATIVE [id number] 00:18:00* Test Item Value Reference Range Interpretation Comme nts ALCOHOL (test code = ALC) 0.00 gm/dL 0.00-0.00 N ETHYL ALCOHOL MIRELLA HARRELL - INTERPRETATION: 0.050 GM/DL - NOT INTOXICATED 0.100 GM/DL - INTOXICATED 0.350-0.450 GM/DL - SEVERELY INTOXICATED 0.550 GM/DL- FATAL INTOXICATION Coronavirus 2019 nCoV Gcmlakm2989-60-37 00:09:00* Test Item Value Reference Range Interpretation Comme nts Coronavirus 2019 nCoV Bedside (test code = SQINI40YVMCG) Negative NEGATIVE Negative results should be treated as presumptive and ifinconsistent with clinical signs and symptoms, or necessaryfor patient management, should be tested with an alternativemolecular assay. Negative results do not preclude LWMS-FoP-3lsnwemyvf and should not be used as the sole basis forpatient management decisions. Negative results should beconsidered in the context of a patient's recent exposures,history, presence of clinical signs and symptoms consistentwith COVID-19. CBC W/AUTO [id number] 23:58:00* Test Item Value Reference Range Interpretation [...] X10 3uL 0.00-0.01 N COMP. METABOLIC PANEL (19241)2022-09-07 02:12:41* Test Item Value Reference Range Interpretation Comme nts NA (test code = 1485740515) 133 mmol/L 135-145 L K (test code = 3922962983) 4.4 mmol/L 3.5-5.0 CL (test code = 3437048503) 102 mmol/L 98-108 CO2 TOTAL (test code = 8151744480) 25 mmol/L 23-31 AGAP (test code = 2053867596) 6 2-16 BUN (test code = 2131585541) 22 mg/dL 7-23 GLUCOSE (test code = 2260715960) 97 mg/dL 70-110 CREATININE (test code = 4730186351) 0.40 mg/dL 0.50-1.04 L TOTAL BILI (test code = 3055102459) 0.3 mg/dL 0.1-1.1 CALCIUM (test code = 0391255212) 8.9 mg/dL 8.6-10.6 T PROTEIN (test code = 3436293211) 7.7 g/dL 6.3-8.2 ALBUMIN (test code = 5587522173) 4.0 g/dL 3.5-5.0 ALK PHOS (test code = 9118702257) 104 U/L 34-122 ALTv (test code = 1742-6) 15 U/L 5-35 AST(SGOT) (test code = 7464235936) 22 U/L 13-40 eGFR (test code = 2247017032) 170.4 mL/min/1.73m2 HANNAH (test code = HANNAH) [...] imaging tests). Lab Interpretation (test code = 90567-2) Abnormal [facility] WITH [id number] 02:01:20* Test Item Value Reference Range Interpretation Comme nts WBC (test code = 6690-2) 6.17 See_Comment [Automated [employer]] The system which generated this result transmitted reference range: 4.30 - 11.10 10*3/?L. The reference range was not used to interpret this result as normal/abnormal. RBC (test code = 789-8) 3.73 See_Comment L [Automated [employer]] The system which generated this result transmitted [...] 32.9 g/dL 31.6-35.1 RDW-SD (test code = 46779-7) 48.1 fL 39.0-49.9 RDW-CV (test code = 788-0) 14.7 % 12.0-15.5 PLT (test code = 777-3) 272 See_Comment [Automated messa ge] The system which generated this result transmitted reference range: 166 - 358 10*3/?L. The reference range was not used to interpret this result as normal/abnormal. MPV (test code = 93899-7) 9.6 fL 9.5-12.9 NRBC/100 WBC (test code = 4360559963) 0.0 See_Comment [Automated [employer] ssage] The system which generated this result transmitted reference range: 0.0 - 10.0 /100 WBCs. The reference range was not used to interpret this result as normal/abnormal. NRBC x10^3 (test code = 6211088580) See_Comment [Automated [employer] [place] ge] The system which generated this result transmitted reference range: 10*3/?L. The reference range was not used to interpret this result as normal/abnormal. GRAN MAT (NEUT) % (test code = 770-8) 42.2 % IMM GRAN % (test code = 6312901730) 0.20 % LYMPH % (test code = 736-9) 38.2 % MONO % (test code = 5905-5) 12.6 % EOS % (test code = 713-8) 5.8 % BASO % (test code = 706-2) 1.0 % GRAN MAT x10^3(ANC) (test code = 9844086296) 2.60 10*3/uL 1.88-7.09 IMM GRAN x10^3 (test code = 7567427974) 0.00-0.06 LYMPH x10^3 (test code = 731-0) 2.36 10*3/uL 1.32-3.29 MONO x10^3 (test code = 742-7) 0.78 10*3/uL 0.33-0.92 EOS x10^3 (test code = 711-2) 0.36 10*3/uL 0.03-0.39 BASO x10^3 (test code = 704-7) 0.06 10*3/uL 0.01-0.07 Lab Interpretation (test code = 42347-9) [facility]normal [facility] ([facility]OVID-19[facility] by RT-PCR (HIGH RISK) 2020-08-19 00:00:00* Test Item Value Reference Range Interpretation Comme nts SARS-CoV-2 INTERPRETATION (t est code = 23038) NEGATIVE SOURCE (test code = 98655) NOT SPECIFIED Henry Quiles RbdmqvVJBJ-PgV-9 (COVID-19) by RT-PCR (HIGH RISK)2020-08-19 00:00:00* Test Item Value Reference Range Interpretation Comme nts SARS-CoV-2 INTERPRETATION (t est code = 99137) NEGATIVE SOURCE (test code = 71481) NOT SPECIFIED Henry F HptloeJLAT-BpQ-2 (COVID-19) by RT-PCR (HIGH RISK)2020-08-19 00:00:00* Test Item Value Reference Range Interpretation Comme nts SARS-CoV-2 INTERPRETATION (t est code = 74361) NEGATIVE SOURCE (test code = 67257) NOT SPECIFIED Henry F AustinHPV HIGH RISK WITH GENOTYPE, [id number] 00:00:00* Test Item Value Reference Range Interpretation Comme [facility] HPV HIGH RISK INTERP (test c ode = 00109) NEGATIVE HPV 16 (test code = 61943) NEGATIVE HPV 18 (test code = 88447) NEGATIVE HPV, HR, OTHER GENOTYPES (te st code = 33198) NEGATIVE Henry F AustinPAP TEST, THINPREP, [id number] 00:00:00* Test Item Value Reference Range Interpretation Comme nts SOURCE: (test code = 8001) Cervical/Endocervical SLIDES: (test code = 8011) 1 LMP: (test code = 8021) 06/2017 SPECIMEN ADEQUACY: (test code = 38101) (NOTE) INTERPRETATION: (test code = 04063) NILM/NO EPITH. ABNORMALITY;SEE BELOW LEDGER CLERK: (test code = 8101) [place], [place](ASCP) IAC LOCATION: (test code = 82598) (NOTE) CPT: (test code = 8140) (NOTE) Henry Quiles AustinHPV HIGH RISK WITH GENOTYPE, [id number] 00:00:00* Test Item Value Reference Range Interpretation Comme nts HPV HIGH RISK INTERP (test c ode = 07811) NEGATIVE HPV 16 (test code = 00956) NEGATIVE HPV 18 (test code = 26107) NEGATIVE HPV, HR, OTHER GENOTYPES (te st code = 98399) NEGATIVE Henry Quiles AustinPAP TEST, THINPREP, [id number] 00:00:00* Test Item Value Reference Range Interpretation Comme nts SOURCE: (test code = 8001) Cervical/Endocervical SLIDES: (test code = 8011) 1 LMP: (test code = 8021) 06/2017 SPECIMEN ADEQUACY: (test code = 22740) (NOTE) INTERPRETATION: (test code = 62269) NILM/NO EPITH. ABNORMALITY;SEE BELOW LEDGER CLERK: (test code = 8101) [place], [place](ASCP) IAC LOCATION: (test code = 82766) (NOTE) CPT: (test code = 8140) (NOTE) Henry Quiles AustinHPV HIGH RISK WITH GENOTYPE, [id number] 00:00:00* Test Item Value Reference Range Interpretation Comme nts HPV HIGH RISK INTERP (test c ode = 02492) NEGATIVE HPV 16 (test code = 40953) NEGATIVE HPV 18 (test code = 22405) NEGATIVE HPV, HR, OTHER GENOTYPES (te st code = 56395) NEGATIVE Henry ContrerasPAP TEST, THINPREP, [id number] 00:00:00* Test Item Value Reference Range Interpretation Comme nts SOURCE: (test code = 8001) Cervical/Endocervical SLIDES: (test code = 8011) 1 LMP: (test code = 8021) 06/2017 SPECIMEN ADEQUACY: (test code = 80329) (NOTE) INTERPRETATION: (test code = 20031) NILM/NO EPITH. ABNORMALITY;SEE BELOW LEDGER CLERK: (test code = 8101) [facility] IAC LOCATION: (test code = 83155) (NOTE) CPT: (test code = 8140) (NOTE) Henry ContrerasCT HEAD WO [id number] 22:34:12Impression: 1. ?No acute intracranial process. 2. [...] he patient. Please correlate with history and physicalexamination.[facility] CERVICAL SPINE 2 [id number] 22:29:40No acute osseous abnormality. Preliminary Report Dictated [...] reviewed this study and agree with theabove report.[facility] DistrictCB WITH VOAVJDJKHCJR8955-59-91 21:46:00* Test Item Value Reference Range Interpretation [...] 32.2 g/dL 31.6-35.1 RDW-SD (test code = 97134-7) 45.1 fL 39-49.9 RDW-CV (test code = 788-0) 14.6 % 12-15.5 PLT (test code = 777-3) See_Comment L [Automated messa ge] The system which generated this result transmitted reference range: 166 - 358 10*3/?L. The reference range was not used to interpret this result as normal/abnormal. MPV (test code = 19990-4) 9.0 fL 9.5-12.9 L NRBC/100 WBC (test code = 4315705890) See_Comment [Automated me ssage] The system which generated this result transmitted reference range: 0.0 - 10.0 /100 WBCs. The reference range was not used to interpret this result as normal/abnormal. NRBC x10^3 (test code = 9820436510) <0.01 See_Comment [Automated messa ge] The system which generated this result transmitted reference range: 10*3/?L. The reference range was not used to interpret this result as normal/abnormal. GRAN MAT (NEUT) % (test code = 770-8) 51.3 % IMM GRAN % (test code = 7233331921) 0.40 % LYMPH % (test code = 736-9) 24.4 % MONO % (test code = 5905-5) 23.1 % EOS % (test code = 713-8) 0.4 % BASO % (test code = 706-2) 0.4 % GRAN MAT x10^3(ANC) (test code = 1333597960) 2.48 10*3/uL 1.88-7.09 IMM GRAN x10^3 (test code = 3217015343) <0.03 0-0.06 LYMPH x10^3 (test code = 731-0) 1.18 10*3/uL 1.32-3.29 L MONO x10^3 (test code = 742-7) 1.12 10*3/uL 0.33-0.92 H EOS x10^3 (test code = 711-2) <0.03 0.03-0.39 L BASO x10^3 (test code = 704-7) <0.03 0.01-0.07 Lab Interpretation (test code = 93684-2) Abnormal [facility] CERVICAL SPINE 2 [id number] 03:28:03No acute osseous abnormality. Preliminary Report Dictated [...] this study and agree withthe above report. [facility] DistrictValproic Acid Hqmfb5278-28-10 08:03:22* Test Item Value Reference Range Interpretation Comme nts Valproic Acid Level (test co de = Valproic Acid Level) 57.6 ug/mL(g) 50.0-100.0 Hemoglobin [id number] 09:36:00* Test Item Value Reference Range Interpretation Comme nts Hemoglobin A1c (test code = Hemoglobin A1c) 5.0 % 4.8-5.9 Non Diabetic 4.8-5.9%Diabetic <7.0% CT Shoulder w/o Contrast [id number] 16:49:13Patient: BHUMIKA JONES Date/Time01/09/2019 16:14 CDTReason for [...] Adam FSigned (Electronic Signature): 01/09/2019 4:49 pmRPR Tvcehuemjxz5705-50-15 21:33:20* Test Item Value Reference Range Interpretation [...] 04-23-2020 N XR Shoulder Complete 2+ Views Cgbj3426-17-09 15:41:25Patient: BHUMIKA JONES Date/Time01/07/2019 15:25 CDTReason for [...] CSigned (Electronic Signature): 01/07/2019 3:41 pmThyroid Stimulating Iuegiwj2999-65-08 03:07:04* Test Item Value Reference Range Interpretation Comme nts TSH (test code = TSH) 9.650 mIU/mL 0.270-4.200 H Lipid Wgeok6224-42-93 03:07:03* Test Item Value Reference Range Interpretation Comme nts Cholesterol Total (test code = Cholesterol Total) 199 mg/dL 0-200 RISK OF HEART DISEASEPublished by [place] Heart Association Analyte Optimal Borderline Increased RiskCHOL [...] is LDL/HDL Ratio=LDL Calc/HDL Chol HCG Qualitative Hcsqa1311-67-28 02:33:13* Test Item Value Reference Range Interpretation Comme nts HCG, Serum Qual (test code = HCG, Serum Qual) Negative Lot # (test code = Lot #) [id number] N Expiration Dt (test code = Expiration Dt) 2020-04-23 N Neg Control (test code = Neg Control) Negative Pos Control (test code = Pos Control) Positive Internal QC (test code = Int ernal QC) Acceptable Drugs of Abuse Urine [id number] 18:58:11* Test Item Value Reference Range Interpretation [...] = Cannabinoid Screen Ur) Negative Negative Alcohol Sooox4994-75-90 18:47:34* Test Item Value Reference Range Interpretation Comme nts Ethanol Level (test code = Ethanol Level) <0.00 g/dL 0.00-0.01 Intoxicated 0.08 0 g/dL or more Ethanol Inst (test code = Ethanol Inst) <0 N Comprehensive Metabolic Pudjo1253-01-77 18:47:33* Test Item Value Reference Range Interpretation [...] A/G Ratio) 1.0 ratio N Comprehensive Metabolic Yfrbf6869-72-72 18:47:33* Test Item Value Reference Range Interpretation [...] is not provided, and the patient is -Bhut[place], multiply by 1.212. If sex is not [...] the National Kidney Foundation, http://nkdep.nih.gov Comprehensive Metabolic Uncxz7766-68-07 18:47:33* Test Item Value Reference Range Interpretation [...] is not provided, and the patient is -Bhutanese, multiply by 1.212. If sex is not [...] is not provided, and the patient is -Bhutanese, multiply by 1.212. If sex is not [...] Kidney Foundation, http://nkdep.nih.gov Complete Blood Count with Ygrpnsfnzspg8694-07-02 18:15:23* Test Item Value Reference Range Interpretation [...] code = IPF) 0 % N Automated Oltiwzjfofal4313-47-24 18:15:23* Test Item Value Reference Range Interpretation Comme nts Neutro Auto (test code = Sunny tro Auto) 42.1 % 36.0-70.0 Lymph Auto (test code = Lymph Auto) 40.0 % 12.0-44.0 [place] Auto (test code = [place] Auto) 12.2 % 0.0-11.0 H Eos, Auto (test code = Eos, Auto) 4.9 % 0.0-7.0 Basophil Auto (test code = B asophil Auto) 0.6 % 0.0-2.0 Neutro Absolute (test code = Neutro Absolute) 2.2 x10 1.6-7.4 Lymph Absolute (test code = Lymph Absolute) 2.06 x10 .50-4.60 [place] Absolute (test code = M richa Absolute) .63 x10 .00-1.20 Eos Absolute (test code = Eo s Absolute) 0.25 x10 0.00-0.74 Baso Absolute (test code = B aso Absolute) 0.03 x10 0.00-0.21 IG Zkeno9048-45-14 18:15:23* Test Item Value Reference Range Interpretation Comme nts IG (test code = IG) 0.2 % 0.0-5.0 IG Abs (test code = IG Abs) 0 x10 N VALPROIC [id number] 00:00:00* Test Item Value Reference Range Interpretation Comme nts VALPROIC ACID (test code = 3025) 69.8 UG/ML Henry Quiles AustinVALPROIC [id number] 00:00:00* Test Item Value Reference Range Interpretation Comme nts VALPROIC ACID (test code = 3025) 69.8 UG/ML Henry Quiles AustinVALPROIC [id number] 00:00:00* Test Item Value Reference Range Interpretation Comme nts VALPROIC ACID (test code = 3025) 69.8 UG/ML Henry Quiles AustinURINE CULTURE, NO [id number] 00:00:00* Test Item Value Reference Range Interpretation Comme nts URINE CULTURE, NO SENS (test code = 46160) SPECIMEN NUMBER: [id number] Henry Quiles AustinURINE CULTURE, NO [id number] 00:00:00* Test Item Value Reference Range Interpretation Comme nts URINE CULTURE, NO SENS (test code = 82474) SPECIMEN NUMBER: [id number] Henry Quiles AustinURINE CULTURE, NO [id number] 00:00:00* Test Item Value Reference Range Interpretation Comme nts URINE CULTURE, NO SENS (test code = 35219) SPECIMEN NUMBER: [id number] Henry Quiles AustinIRON BINDING CAPACITY AND IRON AND % XATFGWFUNJ7304-47-60 00:00:00* Test Item Value Reference Range Interpretation Comme nts IRON, SERUM (test code = 2222) 42 UG/DL UNSATURATED IBC (test code = 36477) 279 UG/DL CALC TOTAL IBC (test code = 7) 321 UG/DL CALC % IRON SAT (test code = 9) 13 % Henry Quiles IubxtcQFJBNUMU5933-59-90 00:00:00* Test Item Value Reference Range Interpretation Comme nts FERRITIN (test code = 2075) 15 NG/ML Henry Quiles XxbeibXKAGKOJBQRA1832-51-76 00:00:00* Test Item Value Reference Range Interpretation Comme nts TRANSFERRIN (test code = 4936) 269 MG/DL Henry Quiles AustinFOLIC POYG2671-31-86 00:00:00* Test Item Value Reference Range Interpretation Comme nts FOLIC ACID (test code = 2695) 5.4 UG/L Henry Quiles AustinIRON BINDING CAPACITY AND IRON AND % JQNSNRJARM7712-00-76 00:00:00* Test Item Value Reference Range Interpretation Comme nts IRON, SERUM (test code = 2) 42 UG/DL UNSATURATED IBC (test code = 86384) 279 UG/DL CALC TOTAL IBC (test code = 7) 321 UG/DL CALC % IRON SAT (test code = 9) 13 % Henry Quiles XacppoYWHYGVSZ0070-04-64 00:00:00* Test Item Value Reference Range Interpretation Comme nts FERRITIN (test code = 2075) 15 NG/ML Henry Quiles ZvvqgeSOCXRUBFEEV2221-85-61 00:00:00* Test Item Value Reference Range Interpretation Comme nts TRANSFERRIN (test code = 4936) 269 MG/DL Henry Quiles AustinFOLIC [id number] 00:00:00* Test Item Value Reference Range Interpretation Comme nts FOLIC ACID (test code = 2695) 5.4 UG/L Henry Quiles AustinIRON BINDING CAPACITY AND IRON AND % LPHXKBTUJE7083-04-34 00:00:00* Test Item Value Reference Range Interpretation Comme nts IRON, SERUM (test code = 2222) 42 UG/DL UNSATURATED IBC (test code = 22659) 279 UG/DL CALC TOTAL IBC (test code = 2077) 321 UG/DL CALC % IRON SAT (test code = 2079) 13 % Henry Quiles CnvnpoAISJKSWN9144-05-55 00:00:00* Test Item Value Reference Range Interpretation Comme nts FERRITIN (test code = 2075) 15 NG/ML Henry Quiles YrkarqWQUJZAFSNXQ8744-53-58 00:00:00* Test Item Value Reference Range Interpretation Comme nts TRANSFERRIN (test code = 4936) 269 MG/DL Henry Quiles AustinFOLIC SNOH5587-45-97 00:00:00* Test Item Value Reference Range Interpretation Comme nts FOLIC ACID (test code = 2695) 5.4 UG/L Henry Quiles AustinCULTURE, URINE [ADDED]2018-06-12 00:00:00* Test Item Value Reference Range Interpretation Comme nts CULTURE, URINE (test code = 55795) SPECIMEN NUMBER: [id number] Henry Quiles AustinCULTURE, URINE [ADDED]2018-06-12 00:00:00* Test Item Value Reference Range Interpretation Comme nts CULTURE, URINE (test code = 64335) SPECIMEN NUMBER: [id number] Henry Quiles AustinCULTURE, URINE [ADDED]2018-06-12 00:00:00* Test Item Value Reference Range Interpretation Comme nts CULTURE, URINE (test code = 18276) SPECIMEN NUMBER: [id number] Henry Quiles AustinCBC W/AUTO [id number] 00:00:00* Test Item Value Reference Range Interpretation [...] = 1015) 184 K/UL Henry ContrerasCOMPREHENSIVE METABOLIC [id number] 00:00:00* Test Item Value Reference Range Interpretation Comme nts GLUCOSE (test code = 2217) 86 MG/DL BUN (test code = 2208) 16 MG/DL CREATININE (test code = 2214) 0.45 MG/DL eGFR AMER. (test cod e = 55577) 141 ML/MIN/1.73 eGFR NON- AMER. (test code = 63934) 122 ML/MIN/1.73 CALC BUN/CREAT (test code = [...] code = 2219) 17 U/L Henry ContrerasVALPROIC [id number] 00:00:00* Test Item Value Reference Range Interpretation Comme nts VALPROIC ACID (test code = 3025) 100.9 UG/ML Henry ContrerasCBC W/AUTO [id number] 00:00:00* Test Item Value Reference Range Interpretation [...] = 1015) 184 K/UL Henry ContrerasCOMPREHENSIVE METABOLIC [id number] 00:00:00* Test Item Value Reference Range Interpretation Comme nts GLUCOSE (test code = 2217) 86 MG/DL BUN (test code = 2208) 16 MG/DL CREATININE (test code = 2214) 0.45 MG/DL eGFR AMER. (test cod e = 45109) 141 ML/MIN/1.73 eGFR NON- AMER. (test code = 68665) 122 ML/MIN/1.73 CALC BUN/CREAT (test code = [...] code = 2219) 17 U/L Henry ContrerasVALPROIC [id number] 00:00:00* Test Item Value Reference Range Interpretation Comme nts VALPROIC ACID (test code = 3025) 100.9 UG/ML Henry ContrerasCBC W/AUTO [id number] 00:00:00* Test Item Value Reference Range Interpretation [...] = 1015) 184 K/UL Henry ContrerasCOMPREHENSIVE METABOLIC [id number] 00:00:00* Test Item Value Reference Range Interpretation Comme nts GLUCOSE (test code = 2217) 86 MG/DL BUN (test code = 2208) 16 MG/DL CREATININE (test code = 2214) 0.45 MG/DL eGFR AMER. (test cod e = 08340) 141 ML/MIN/1.73 eGFR NON- AMER. (test code = 66808) 122 ML/MIN/1.73 CALC BUN/CREAT (test code = [...] code = 2219) 17 U/L Henry ContrerasVALPROIC [id number] 00:00:00* Test Item Value Reference Range Interpretation Comme nts VALPROIC ACID (test code = 3025) 100.9 UG/ML Henry ContrerasPAP TEST, THINPREP, [id number] 00:00:00* Test Item Value Reference Range Interpretation Comme nts SOURCE: (test code = 8001) Cervical/Endocervical SLIDES: (test code = 8011) 1 LMP: (test code = 8021) 03/2017 SPECIMEN ADEQUACY: (test code = 31411) (NOTE) INTERPRETATION: (test code = 13849) NO EPITHELIAL ABNORMALITY SEE BELOW LEDGER CLERK: (test code = 8101) KANA Merida(ASCP)IAC LOCATION: (test code = 16053) (NOTE) CPT: (test code = 8140) (NOTE) Henry ContrerasHPV HIGH RISK WITH GENOTYPE, [id number] 00:00:00* Test Item Value Reference Range Interpretation Comme nts HPV HIGH RISK INTERP (test c ode = 63701) NEGATIVE HPV 16 (test code = 21369) NEGATIVE HPV 18 (test code = 98964) NEGATIVE HPV, HR, OTHER GENOTYPES (te st code = 59509) NEGATIVE Henry ContrerasPAP TEST, THINPREP, [id number] 00:00:00* Test Item Value Reference Range Interpretation Comme nts SOURCE: (test code = 8001) Cervical/Endocervical SLIDES: (test code = 8011) 1 LMP: (test code = 8021) 03/2017 SPECIMEN ADEQUACY: (test code = 38784) (NOTE) INTERPRETATION: (test code = 04681) NO EPITHELIAL ABNORMALITY SEE BELOW LEDGER CLERK: (test code = 8101) KANA Merida(ASCP)IAC LOCATION: (test code = 51628) (NOTE) CPT: (test code = 8140) (NOTE) Henry ContrerasHPV HIGH RISK WITH GENOTYPE, [id number] 00:00:00* Test Item Value Reference Range Interpretation Comme nts HPV HIGH RISK INTERP (test c ode = 91290) NEGATIVE HPV 16 (test code = 87251) NEGATIVE HPV 18 (test code = 49516) NEGATIVE HPV, HR, OTHER GENOTYPES (te st code = 93818) NEGATIVE Henry ContrerasPAP TEST, THINPREP, [id number] 00:00:00* Test Item Value Reference Range Interpretation Comme nts SOURCE: (test code = 8001) Cervical/Endocervical SLIDES: (test code = 8011) 1 LMP: (test code = 8021) 03/2017 SPECIMEN ADEQUACY: (test code = 63817) (NOTE) INTERPRETATION: (test code = 48984) NO EPITHELIAL ABNORMALITY SEE BELOW LEDGER CLERK: (test code = 8101) KANA Merida(ASCP)IAC LOCATION: (test code = 56343) (NOTE) CPT: (test code = 8140) (NOTE) Henry ContrerasHPV HIGH RISK WITH GENOTYPE, [id number] 00:00:00* Test Item Value Reference Range Interpretation Comme nts HPV HIGH RISK INTERP (test c ode = 00187) NEGATIVE HPV 16 (test code = 45829) NEGATIVE HPV 18 (test code = 67351) NEGATIVE HPV, HR, OTHER GENOTYPES (te st code = 12425) NEGATIVE Henry ContrerasHIV AB/AG COMBO RFLX [id number] 00:00:00* Test Item Value Reference Range Interpretation Comme nts HIV 1/2 4TH GEN, RFLX CONF ( test code = 3514) NON-REACTIVE Henry Quiles AustinGC AND CHLAMYDIA AMPLIFIED, [id number] 00:00:00* Test Item Value Reference Range Interpretation Comme nts GONORRHEA, TMA (test code = 42443) NEGATIVE CHLAMYDIA, TMA (test code = 79762) NEGATIVE Henry Quiles AustinGC AND CHLAMYDIA AMPLIFIED, [id number] 00:00:00* Test Item Value Reference Range Interpretation Comme nts GONORRHEA, TMA (test code = 04181) NEGATIVE CHLAMYDIA, TMA (test code = 42006) NEGATIVE Henry ContrerasHIV AB/AG COMBO RFLX [id number] 00:00:00* Test Item Value Reference Range Interpretation Comme nts HIV 1/2 4TH GEN, RFLX CONF ( test code = 3514) NON-REACTIVE Henry ContrerasGC AND CHLAMYDIA AMPLIFIED, [id number] 00:00:00* Test Item Value Reference Range Interpretation Comme nts GONORRHEA, TMA (test code = 79467) NEGATIVE CHLAMYDIA, TMA (test code = 73238) NEGATIVE Henry ContrerasHIV AB/AG COMBO RFLX [id number] 00:00:00* Test Item Value Reference Range Interpretation Comme nts HIV 1/2 4TH GEN, RFLX CONF ( test code = 3514) NON-REACTIVE Henry ContrerasLIPID [id number] 00:00:00* Test Item Value Reference Range Interpretation Comme nts CHOLESTEROL (test code = 2210) 186 MG/DL TRIGLYCERIDES (test code = 2232) 131 MG/DL HDL CHOLESTEROL (test code = 2220) 67 MG/DL CALC LDL CHOL (test code = 2237) 93 MG/DL RISK RATIO LDL/HDL (test cod e = 2238) 1.39 RATIO Henry ContrerasCBC W/AUTO [id number] 00:00:00* Test Item Value Reference Range Interpretation [...] code = 1015) 152 K/UL Henry ContrerasHEMOGLOBIN [id number] 00:00:00* Test Item Value Reference Range Interpretation Comme shaina HEMOGLOBIN A1c (test code = 85424) 5.2 % Henry [id number] 00:00:00* Test Item Value Reference Range Interpretation Comme nts TSH (test code = 2821) 2.020 UIU/ML Henry ContrerasCOMPREHENSIVE METABOLIC [id number] 00:00:00* Test Item Value Reference Range Interpretation Comme nts GLUCOSE (test code = 2217) 90 MG/DL BUN (test code = 2208) 21 MG/DL CREATININE (test code = 2214) 0.42 MG/DL eGFR AMER. (test cod e = 49545) 145 ML/MIN/1.73 eGFR NON- AMER. (test code = 73156) 126 ML/MIN/1.73 CALC BUN/CREAT (test code = [...] code = 2219) <5 U/L Henry ContrerasLIPID [id number] 00:00:00* Test Item Value Reference Range Interpretation Comme nts CHOLESTEROL (test code = 2210) 186 MG/DL TRIGLYCERIDES (test code = 2232) 131 MG/DL HDL CHOLESTEROL (test code = 2220) 67 MG/DL CALC LDL CHOL (test code = 2237) 93 MG/DL RISK RATIO LDL/HDL (test cod e = 2238) 1.39 RATIO Henry ContrerasCBC W/AUTO [id number] 00:00:00* Test Item Value Reference Range Interpretation [...] code = 1015) 152 K/UL Henry ContrerasHEMOGLOBIN [id number] 00:00:00* Test Item Value Reference Range Interpretation Comme nts HEMOGLOBIN A1c (test code = 33978) 5.2 % Henry [id number] 00:00:00* Test Item Value Reference Range Interpretation Comme nts TSH (test code = 2821) 2.020 UIU/ML Henry ContrerasCOMPREHENSIVE METABOLIC [id number] 00:00:00* Test Item Value Reference Range Interpretation Comme nts GLUCOSE (test code = 2217) 90 MG/DL BUN (test code = 2208) 21 MG/DL CREATININE (test code = 2214) 0.42 MG/DL eGFR AMER. (test cod e = 33759) 145 ML/MIN/1.73 eGFR NON- AMER. (test code = 36785) 126 ML/MIN/1.73 CALC BUN/CREAT (test code = [...] code = 2219) <5 U/L Henry ContrerasLIPID [id number] 00:00:00* Test Item Value Reference Range Interpretation Comme nts CHOLESTEROL (test code = 2210) 186 MG/DL TRIGLYCERIDES (test code = 2232) 131 MG/DL HDL CHOLESTEROL (test code = 2220) 67 MG/DL CALC LDL CHOL (test code = 2237) 93 MG/DL RISK RATIO LDL/HDL (test cod e = 2238) 1.39 RATIO Henry ContrerasCBC W/AUTO [id number] 00:00:00* Test Item Value Reference Range Interpretation [...] code = 1015) 152 K/UL Henry ContrerasHEMOGLOBIN [id number] 00:00:00* Test Item Value Reference Range Interpretation Comme nts HEMOGLOBIN A1c (test code = 27371) 5.2 % Henry [id number] 00:00:00* Test Item Value Reference Range Interpretation Comme nts TSH (test code = 2821) 2.020 UIU/ML Henry ContrerasCOMPREHENSIVE METABOLIC [id number] 00:00:00* Test Item Value Reference Range Interpretation Comme nts GLUCOSE (test code = 2217) 90 MG/DL BUN (test code = 2208) 21 MG/DL CREATININE (test code = 2214) 0.42 MG/DL eGFR AMER. (test cod e = 05019) 145 ML/MIN/1.73 eGFR NON- AMER. (test code = 90185) 126 ML/MIN/1.73 CALC BUN/CREAT (test code = [...] Notes Date/Time Note Provider Source Henry Contreras [facility]2024-06-04 04:23:47 PATIENT OPEN ORDERS Code System Description Frequency Occurrences Priority [place] [address]-1 [facility] EKG study ONE TIME 0 Stat November 24, 2023 12:29:00 AM [facility] MAGALIE BRAVO [id number] on November 24, 2023 12:29:00 AM [facility] SCHEDULED PROCEDURES Code System Description Status Scheduled Date Updated By Patient scheduled procedure information is not available. [facility]2024-06-04 04:23:47 CARE ad operations associate Role on Team Status Start Date End Date Update d By NO PCP Referring normal November 24, 2023 2:17:11 AM [facility] November 25, 2023 12:04:00 AM [facility] [id number] on November 24, 2023 2:17:11 AM [facility] MAGALIE BRAVO Attending normal November 24, 2023 2:17:11 AM [facility] November 25, 2023 12:04:00 AM [facility] [id number] on November 24, 2023 2:17:11 AM [facility] MAGALIE BRAVO Admitting normal November 24, 2023 2:17:11 AM [facility] November 25, 2023 12:04:00 AM [facility] [id number] on November 24, 2023 2:17:11 AM [facility] NO PCP PCP normal November 24, 2023 2:17:11 AM [facility] November 25, 2023 12:04:00 AM [facility] [id number] on November 24, 2023 2:17:11 AM [facility]2024-06-03 00:00:00 Henry Goldberg [facility]2024-06-02 19:05:13 PATIENT OPEN ORDERS Code System Description Frequency Occurrences Priority Start [place] [id number] [facility] EKG study ONE TIME 0 Stat November 24, 2023 12:29:00 AM [facility] MAGALIE BRAVO [id number] on November 24, 2023 12:29:00 AM [facility] SCHEDULED PROCEDURES Code System Description Status Scheduled Date Updated By Patient scheduled procedure information is not available. [facility]2024-06-02 19:05:13 CARE ad operations associate Role on Team Status Start Date End Date Update d By NO PCP Referring normal November 24, 2023 2:17:11 AM [facility] November 25, 2023 12:04:00 AM [facility] [id number] on November 24, 2023 2:17:11 AM [facility] MAGALIE BARVO Attending normal November 24, 2023 2:17:11 AM [facility] November 25, 2023 12:04:00 AM [facility] [id number] on November 24, 2023 2:17:11 AM [facility] MAGALIE BRAVO Admitting normal November 24, 2023 2:17:11 AM [facility] November 25, 2023 12:04:00 AM [facility] [id number] on November 24, 2023 2:17:11 AM [facility] NO PCP PCP normal November 24, 2023 2:17:11 AM [facility] November 25, 2023 12:04:00 AM [facility] [id number] on November 24, 2023 2:17:11 AM [facility]2024-06-01 21:59:[address] [address] DIAGNOSTIC IMAGING REPORT Patient Name: JONES, CONCEPTION Date of Service: 11-23-2023 Age: 48 Sex: F Order #: [id number] Room: [facility] : 1975 X-Ray Number: [id number] Hospital Number: [id number] Admitting Physician: LAWRENCE MEJIAS Ordering Physician: LAWRENCE [...] 21:59:03 Legally authenticated by ANGIE PHAM 2023-11-23 [facility] [id number] 21:53:03[place] [address] DIAGNOSTIC IMAGING REPORT Patient Name: ROBERT, CONCEPTION Date of Service: 11-23-2023 Age: 48 Sex: F Order #: [id number] Room: [facility] : 1975 X-Ray Number: [id number] Hospital Number: [id number] Admitting Physician: LAWRENCE MEJIAS Ordering Physician: LAWRENCE [...] 21:53:03ALON DEL RIO 2023-10-25 00:00:00 Henry Goldberg [facility]2024-04-10 09:45:21 We are unable to release any pt information with out prior pt permission. However, Risperdal is not generally managed by neurology and would be best managed by psychiatrist. Robyn Durham [facility]2024-04-09 16:15:28 Copied from [facility] #[id number]. Topic: Clinical - Order >> Oct 01, 2023 4:13 PM Patient Resolution Agent wrote: [facility] is calling regarding medication risperdal they were givng her 3mg and stating had dropped it to 1mg trying to confirm change Call [phone] [facility]UNC [id number] 12:29:00 [facility] ([facility] Hospitalist Discharge Summary REPORT#:[id number] REPORT STATUS: Signed DATE:10/11/22 TIME: 1229 PATIENT: BHUMIKA JONES UNIT #: [id number] ROOM/BED: [place] [address] : [birth year] AGE: 47 SEX: F ATTEND: [...] patient this morning with the help of production estimator and she said that he lives with [...] refill, normal range of motion, no edema Neuro/SHEET TAILER: altered mental status, alert Discharge Instructions PCP Discharge to: Home/Self Care Additional Discharge Routines: PCP Follow-Up Diet: Resume Home Diet/Feeds Activity: As Tolerated Follow-up Appointments PCP follow-up: PCP: No Primary or Family Physician PCP follow up timeframe: In 6 days at 1230 RPT #:[id number] END OF [id number] 17:27:00 [facility] [place] ([facility]) Electroencephalogram-EEG REPORT#:[id number] REPORT STATUS: Signed DATE:09/18/22 TIME: 1726 PATIENT: BHUMIKA JONES UNIT #: [id number] ROOM/BED: [place] [address] : [birth year] AGE: 47 SEX: F ATTEND: [...] open eyes (commands were obtained using a health associate) with opening the eyes the patient would [...] with the patient mentioned. at 1736 RPT #:[id number] END OF [id number] 14:24:00 [facility] ([facility] Neurology Consultation Note REPORT#:[id number] REPORT STATUS: Signed DATE:09/18/22 TIME: 1424 PATIENT: BHUMIKA JONES UNIT #: [id number] ROOM/BED: [place] [address] : 74 AGE: 47 SEX: F ATTEND: [...] and the patient was sent to a correction. Reportedly per the patient she did not like the correction and does not like the food there [...] seizures prior to her being in the correction. Per the patient she get upset that [...] available to confirm the history and the correction location is unknown to contact someone who [...] <10 MG 09/18 09/18 09/17 09/17 0553 0515 [id number] Chemistry Hemoglobin A1c (4.5 - 5.6 % [...] - 8.0 pH UNITS) 6.5 Ur Specific [place] (1.001 - 1.035 SG) 1.013 Urine Protein [...] the past or not. at 1652 RPT #:[id number] END OF [id number] 11:44:00 [facility] ([facility] Hospitalist Progress Note REPORT#:[id number] REPORT STATUS: Signed DATE:09/18/22 TIME: 1144 PATIENT: BHUMIKA JONES UNIT #: [id number] ROOM/BED: [place] [address] : [birth year] AGE: 47 SEX: F ATTEND: [...] patient this morning with the help of production estimator and she said that he lives with [...] refill, normal range of motion, no edema Neuro/SHEET TAILER: altered mental status, alert Diagnosis, Assessment Plan [...] afternoon if remains stable at 1147 RPT #:[id number] END OF [id number] 01:06:00 [facility] ([facility]) Hospitalist History Physical REPORT#:[id number] REPORT STATUS: Signed DATE:09/18/22 TIME: 105 PATIENT: BHUMIKA JONES UNIT #: [id number] ROOM/BED: [place] [address] : [birth year] AGE: 47 SEX: F ATTEND: [...] - 8.0 pH UNITS) 6.5 Ur Specific [place] (1.001 - 1.035 SG) 1.013 Urine Protein [...] rhythm Respiratory: decreased breath sounds Abdomen: soft Neuro/SHEET TAILER: altered mental status, alert Diagnosis, Assessment Plan [...] management by incoming thereafter at 0110 RPT #:[id number] END OF [id number] 14:34:00 [facility] ([facility]) EMERGENCY PROVIDER REPORT REPORT#:[id number] REPORT STATUS: Signed DATE:09/17/22 TIME: 1434 PATIENT: BHUMIKA JONES UNIT #: [id number] ROOM/BED: 267-1 AGE: 47 SEX: F PCP PHYS: No Primary or Family Physician SERVICE AUTHOR: Valentina Samayoa MD * ALL edits or amendments must be made on the electronic/computer document * HPI-General Illness Free Text HPI Notes Free Text HPI Notes 47-year-old female presents after possible seizure episode at [facility], will assessment patient is not fully oriented, and cannot provide history of the events of today when asked multiple times. Additional history limited as the patient is tearful and not fully oriented. I spoke to the patient's sister Lewis Luis, phone #[phone] by phone, who reports the patient has been missing from home for 8 days. Reports when the patient is medically cleared they can come get the patient. Patient reportedly initially without medications at the [facility] PMH: Seizures, schizophrenia. General Initial Greet [...] TABS Prov: 09/13/22 DC: 09/14/22 1500 entry table operator correction DIVALPROEX (GINA CALLES) 1,000 MG PO DAILY DIVALPROEX (GINA CALLES) 1,000 MG PO DAILY #60 TABS Prov: 09/13/22 DC: 09/14/22 1459 entry table operator correction Reported Medications DIVALPROEX ER (DEPAKOTE ER) [...] - 8.0 pH UNITS) 6.5 Ur Specific [place] (1.001 - 1.035 SG) 1.013 Urine Protein [...] refill, drowsy, admitted, ultimately discharged back to correction] -My EKG interpretation: I directly visualized and [...] status Disposition Decision Admit Admit Physician Name Mrashall Orellana MD )( Admission Accepts Yes )( Accepted Time 1634 )( Accepted Date 09/17/22 at 1114 RPT #:[id number] END OF [id number] 00:19:00 [facility] ([facility]) EMERGENCY PROVIDER REPORT REPORT#:[id number] REPORT STATUS: Signed DATE:09/17/22 TIME: 0019 PATIENT: BHUMIKA JONES UNIT #: [id number] ROOM/BED: AGE: 47 SEX: F PCP PHYS: No Primary or Family Physician SERVICE AUTHOR: Asim Jack MD * ALL edits or amendments must be made on the electronic/computer document * HPI-General Illness General Initial Greet Date/Time 09/16/22 5638 Presentation Chief Complaint Anxiety, Not feeling well Free Text HPI Notes Free Text HPI Notes Patient brought in by EMS from local women correction after increasing anxiety and concern for possible [...] TABS Prov: 09/13/22 DC: 09/14/22 1500 entry table operator correction DIVALPROEX DR (GINA CALLES) 1,000 MG PO DAILY DIVALPROEX DR (GINA CALLES) 1,000 MG PO DAILY #60 TABS Prov: 09/13/22 DC: 09/14/22 1459 entry table operator correction Reported Medications DIVALPROEX ER (DEPAKOTE ER) [...] % (Auto) (14.1 - 45.4 %) 29.6 [place] % (Auto) (2.5 - 11.7 %) 10.8 Eos % (Auto) (0.0 - 6.2 %) 2.9 Baso % (Auto) (0.0 - 2.1 %) 0.7 Gran # (2.0 - 13.7 k/mm3) 3.12 Lymph # (Auto) (0.6 - 3.8 K/mm3) 1.65 [place] # (Auto) (0.11 - 0.59 K/mm3) 0.60 [...] RADIOLOGY - XR CHEST 1 V 09/16 8535 Report Impression - Status: SIGNED Entered: 09/16/2022 0467 IMPRESSION: No acute cardiopulmonary disease. Impression By: [...] Text MDM Notes Patient presents from local correction with concern for possible seizure activity. I [...] for discharge. Patient urged to follow-up with [facility] in the next 2 to 3 [...] Instructions Please follow-up with [facility], [facility], and neurology. Return if any confusion, headache, stiff neck, fever, vomiting, or any other new concerns. Please take all your medications as instructed Referrals Provider Group: [facility] Follow-Up: 2-3 Days Provider Referral: Nelia Parker MD Follow-Up: 2-3 Days Address: [address] [place] [address] [address] [place] [address] Resource Referral: Savita Orona [facility] [place] Follow-Up: 2-3 Days Address: [address] [place] [address] at 0140 RPT #:[id number] END OF [id number] 12:06:00 [facility] ([facility]) Electroencephalogram-EEG REPORT#:[id number] REPORT STATUS: Signed DATE:09/15/22 TIME: 1206 PATIENT: BHUMIKA JONES UNIT #: [id number] ROOM/BED: [address] : [birth year] AGE: 47 SEX: F [...] or electrographic seizures recorded. at 1209 RPT #:[id number] END OF [id number] 12:00:00 [facility] Hospitalist Discharge Summary REPORT#:[id number] REPORT STATUS: Signed DATE:09/15/22 TIME: 1200 PATIENT: BHUMIKA JONES UNIT #: [id number] ROOM/BED: [facility] : 74 AGE: 47 SEX: F ATTEND: Vladimir Fobres MD ADM AUTHOR: Vladimir Forbes MD * [...] episode. She is Bur[place]ian-speaking patient only in event specialist food demonstrator was used. Patient denies to have any seizure episodes at home she just ran out of her medications and came to the hospital. Patient otherwise remains hemodynamically stable. However she is too drowsy to be discharged safely back home. I discussed the case with the patient. She wants her medications to be refilled and that she wants to go back to her correction. I discussed with her about potential seizure episodes in the future use of medications compliance with the medications and further prescriptions. She states that she would management to the correction. I have requested case management to evaluate [...] initial diagnosis and related differentials with the patient/congregational care pastor including RN. All concerns and questions are answered to the best of my abilities based on the available data.I have initiated the plan of care based on preliminary diagnosis, requested appopriate consultations with labs/imagings. Patient/congregational care pastor verbalizes understanding of the plan of care. [...] timeframe: In 1-2 weeks at 1202 RPT #:[id number] END OF [id number] 16:56:00 [facility] ([facility]) Neurology Consultation Note REPORT#:[id number] REPORT STATUS: Signed DATE:09/14/22 TIME: 1655 PATIENT: BHUMIKA JONES UNIT #: [id number] ROOM/BED: [address] : [birth year] AGE: 47 SEX: F [...] episode. She is Bur[place]ian-speaking patient only in event specialist food demonstrator was used. Patient denies to have any [...] (SODIUM CHLORIDE 0.9% 1000 ML) 1,000 ML .[id number] IV Trazodone HCl (DESYREL) 50 MG BEDTIME PRN PRN PO Sodium Chloride (SODIUM CHLORIDE 0.9% 1000 ML) 1,000 ML .[id number] IV Carbamazepine (TEGretol) 400 MG BID PO Divalproex Sodium (DEPAKOTE DR) 1,000 MG BID PO (DC) Acetaminophen (TYLENOL) 650 MG Q6H PRN PRN PO Ondansetron HCl (ZOFRAN) 4 MG Q4H PRN PRN IV Ceftriaxone Sodium (ROCEPHIN) 1 GM Q24H IV (CAN) Lactated Ringer's (LACTATED RINGERS) 1,000 ML .R38R37M IV Ceftriaxone Sodium (ROCEPHIN) 1 GM X1ED [...] % (Auto) (14.1 - 45.4 %) 33.6 [place] % (Auto) (2.5 - 11.7 %) 13.4 H Eos % (Auto) (0.0 - 6.2 %) 7.4 H Baso % (Auto) (0.0 - 2.1 %) 0.9 Gran # (2.0 - 13.7 k/mm3) 2.61 Lymph # (Auto) (0.6 - 3.8 K/mm3) 1.96 [place] # (Auto) (0.11 - 0.59 K/mm3) 0.78 [...] - 8.0 pH UNITS) 6.0 Ur Specific [place] (1.001 - 1.035 SG) 1.032 Urine Protein [...] deferred to primary team. at 1707 RPT #:[id number] END OF [id number] 14:55:00 [facility] ([facility]) Hospitalist History Physical REPORT#:[id number] REPORT STATUS: Signed DATE:09/14/22 TIME: 1454 PATIENT: BHUMIKA JONES UNIT #: [id number] ROOM/BED: B250-W : 73 AGE: 47 SEX: [...] episode. She is Bur[place]ian-speaking patient only in event specialist food demonstrator was used. Patient denies to have any [...] % (Auto) (14.1 - 45.4 %) 33.6 [place] % (Auto) (2.5 - 11.7 %) 13.4 H Eos % (Auto) (0.0 - 6.2 %) 7.4 H Baso % (Auto) (0.0 - 2.1 %) 0.9 Gran # (2.0 - 13.7 k/mm3) 2.61 Lymph # (Auto) (0.6 - 3.8 K/mm3) 1.96 [place] # (Auto) (0.11 - 0.59 K/mm3) 0.78 [...] - 8.0 pH UNITS) 6.0 Ur Specific [place] (1.001 - 1.035 SG) 1.032 Urine Protein [...] Report Impression - Status: SIGNED Entered: 09/14/2022 0207 IMPRESSION: No radiographic evidence of acute cardiopulmonary [...] episode. She is Burundian-speaking patient only in event specialist food demonstrator was used. Patient denies to have any [...] initial diagnosis and related differentials with the patient/congregational care pastor including RN. All concerns and questions are answered to the best of my abilities based on the available data.I have initiated the plan of care based on preliminary diagnosis, requested appopriate consultations with labs/imagings. Patient/congregational care pastor verbalizes understanding of the plan of care. at 1501 RPT #:[id number] END OF [id number] 04:21:00 [facility] ([facility]) EMERGENCY PROVIDER REPORT REPORT#:[id number] REPORT STATUS: Signed DATE:09/14/22 TIME: 420 PATIENT: BHUMIKA JONES UNIT #: [id number] ROOM/BED: [place] [address] AGE: 47 SEX: F PCP PHYS: No [...] she needs to see a social science teacher but is unsure how to arrange 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, Price Analyst Review of Systems ROS Statements All systems [...] % (Auto) (14.1 - 45.4 %) 33.6 [place] % (Auto) (2.5 - 11.7 %) 13.4 H Eos % (Auto) (0.0 - 6.2 %) 7.4 H Baso % (Auto) (0.0 - 2.1 %) 0.9 Gran # (2.0 - 13.7 k/mm3) 2.61 Lymph # (Auto) (0.6 - 3.8 K/mm3) 1.96 [place] # (Auto) (0.11 - 0.59 K/mm3) 0.78 [...] - 8.0 pH UNITS) 6.0 Ur Specific [place] (1.001 - 1.035 SG) 1.032 Urine Protein [...] of care. at 0449 at 0540 RPT #:[id number] END OF [id number] 20:34:00 [facility] ([facility]) EMERGENCY PROVIDER REPORT REPORT#:[id number] REPORT STATUS: Signed DATE:09/13/22 TIME: 2033 PATIENT: BHUMIKA JONES UNIT #: [id number] ROOM/BED: [address].250-W AGE: 47 SEX: F PCP [...] (RisperDAL) 3 MG PO DAILY at 1707 [facility] #:[id number] END OF [id number] 09:58:00 [facility] ([facility]) EMERGENCY PROVIDER REPORT REPORT#:[id number] REPORT STATUS: Signed DATE:09/13/22 TIME: 957 PATIENT: BHUMIKA JONES UNIT #: [id number] ROOM/BED: AGE: 47 SEX: F PCP PHYS: [...] - 8.0 pH UNITS) 6.0 Ur Specific [place] (1.001 - 1.035 SG) 1.024 Urine Protein [...] % (Auto) (14.1 - 45.4 %) 34.0 [place] % (Auto) (2.5 - 11.7 %) 10.1 Eos % (Auto) (0.0 - 6.2 %) 2.7 Baso % (Auto) (0.0 - 2.1 %) 0.7 Gran # (2.0 - 13.7 k/mm3) 3.04 Lymph # (Auto) (0.6 - 3.8 K/mm3) 1.98 [place] # (Auto) (0.11 - 0.59 K/mm3) 0.59 Eos # (Auto) (0.0 - 0.4 K/mm3) 0.16 Baso # (Auto) (0.0 - 0.1 K/mm3) 0.04 Immature Gran % (0.0 - 2.0 %) 0.3 Nucleated RBC % (0.0 - 1.0 /100WBC%) 0.0 Nucleated RBCs # (0.0 - 0.05 K/mm3) 0.00 Point of Care Testing Pulse Oximetry Pulse Ox % 98 On: Room air Interpretation Interpreted by mo Time 09 ECG #1 Interpretation ECG Documented [...] a call to 911. at [phone] RPT #:[id number] END OF REPORTHCACR
--- NOTE | 2024-05-25 13:42 | EDPHYS ---
Physician Documentation [facility] Name: Davida Hodges Age: 49 yrs Sex: Female : 1975 Arrival Date: 05/25/2024 Time: 11:14 Bed IW1 Private MD: ED Physician Ramiro Piña HPI: 05/25 11:22 This 49 yrs old Female presents to ER via Unassigned with complaints of chest ms3 pain. 11:22 The patient presents to the Emergency Department with complaints of chest pain that ms3 began three weeks ago. The chest pain episodes last about 10 minutes each. In addition, the patient has been experiencing vomiting for the past three days. She rates her pain a 10/10. She denies any alleviating or inciting factors. The patient reports having a history of hypertension. . Historical: - Allergies: 11:55 CARBAMAZEPINE DERIVATIVES; aa5 11:55 Depakote; aa5 11:55 Tegretol; aa5 - PMHx: 11:55 Seizure; aa5 ROS: 11:22 Constitutional: Negative for fever, and chills. ms3 11:22 Respiratory: Negative for shortness of breath, cough, wheezing, and pleuritic chest pain, Abdomen/GI: Negative for abdominal pain, nausea, vomiting, diarrhea, and constipation, MS/Extremity: Negative for injury and deformity, Skin: Negative for injury, rash, and discoloration, 11:22 Cardiovascular: Positive for chest pain, 11:22 Abdomen/GI: Positive for nausea and vomiting, Exam: 11:22 Constitutional: This is a well developed, well nourished patient who is awake, alert, ms3 and in no acute distress. Head/Face: Normocephalic, atraumatic. Chest/axilla: Normal chest wall appearance and motion. Nontender with no deformity. Cardiovascular: Regular rate and rhythm with a normal S1 and S2. No gallops, murmurs, or rubs. Normal PMI, no JVD. No pulse deficits. Respiratory: Lungs have equal breath sounds bilaterally, clear to auscultation and percussion. No rales, rhonchi or wheezes noted. No increased work of breathing, no retractions or nasal flaring. Abdomen/GI: Soft, non-tender, with normal bowel sounds. No distension or tympany. No guarding or rebound. No evidence of tenderness throughout. Skin: Warm, dry with normal turgor. Normal color with no rashes, no lesions, and no evidence of cellulitis. MS/ Extremity: Pulses equal, no cyanosis. Neurovascular intact. Full, normal range of motion. Vital Signs: 11:54 BP 141 / 76; Pulse 61; Resp 16 S; Temp 97.8(TE); Pulse Ox 100% on R/A; aa5 MDM: 11:17 Medical Screening Exam initiated ms3 21:36 Differential diagnosis: abnormal EKG, acute pericarditis, anxiety, chest wall pain. ms3 Data reviewed: vital signs, nurses notes. Historians other than the Patient: EMS: [facility]. ED course: Patient left the Emergency Department prior to work up starting. Patient is free to return to the Department at any time to continue her care.. 12 11:18 Order name: Cardiac monitoring ms3 05/25 11:18 Order name: EKG - Nurse/Tech ms3 05/25 11:18 Order name: IV Saline Lock ms3 05/25 11:18 Order name: Labs collected and sent ms3 05/25 11:18 Order name: O2 Per Protocol ms3 05/25 11:18 Order name: O2 Sat Monitoring ms3 Administered Medications: 13:45 Not Given (Patient Eloped): aspirinchewable tablet 324 mg PO once; 81 mg tablets x 4 iw Disposition Summary: 05/25/24 13:41 Discharge Ordered Notes: Location: Home ms3 Condition: Stable ms3 Diagnosis - Chest pain, unspecified ms3 Followup: ms3 - With: Magdy Avelar MD - When: 2 - 3 days - Reason: Recheck today's complaints Discharge Instructions: - Discharge Summary Sheet ms3 - Nonspecific Chest Pain, Adult ms3 Forms: - Medication Reconciliation Form ms3 - Antibiotic Education ms3 - Prescription Opioid Use ms3 - Patient Portal Instructions ms3 - Leadership Thank You Letter ms3 Signatures: Dispatcher [employer] EDMaggy Phan, RN RN aa5 Ramiro Piña DO DO ms3 Laila Foreman RN iw Corrections: (The following items were deleted from the chart) 11:18 11:18 Chest Single View+RAD.RAD.BRZ ordered. EDMS EDMS
--- NOTE | 2024-05-25 13:42 | ER ---
Nurse's Notes [facility] Name: Davida Hodges Age: 49 yrs Sex: Female : 1975 Arrival Date: 05/25/2024 Time: 11:14 Bed IW1 Private MD: Diagnosis: Chest pain, unspecified Presentation: 05/25 11:54 Chief complaint: Patient states: "I am having anxiety attacks because I get my mad at aa5 my Mom and Zoraida". Pt calm and cooperative during triage. 11:54 Coronavirus screen: At this time, the client does not indicate any symptoms associated aa5 with coronavirus-19. Ebola Screen: Patient denies travel to an Ebola-affected area in the 21 days before illness onset. Initial Sepsis Screen: Does the patient meet any 2 criteria? No. Patient's initial sepsis screen is negative. Does the patient have a suspected source of infection? No. Patient's initial sepsis screen is negative. Risk Assessment: Do you want to hurt yourself or someone else? Patient reports no desire to harm self or others. Onset of symptoms was May 25, 2024. 11:54 Acuity: CARMITA 3 aa5 11:54 Method Of Arrival: EMS: [facility] aa5 Historical: - Allergies: 11:55 CARBAMAZEPINE DERIVATIVES; aa5 11:55 Depakote; aa5 11:55 Tegretol; aa5 - PMHx: 11:55 Seizure; aa5 Assessment: 12:45 Reassessment: pt not in lobby when called. iw 13:43 Reassessment: pt not in lobby. iw Vital Signs: 11:54 BP 141 / 76; Pulse 61; Resp 16 S; Temp 97.8(TE); Pulse Ox 100% on R/A; aa5 ED Course: 11:15 Patient arrived in ED. ec2 11:17 Ramiro Piña DO is Attending Physician. ms3 11:54 Arm band placed on. aa5 11:58 Triage completed. aa5 13:19 Note: Called for patient for Chest X-ray, no response.. md2 13:41 Magdy Avelar MD is Referral Physician. ms3 Administered Medications: 13:45 Not Given (Patient Eloped): aspirinchewable tablet 324 mg PO once; 81 mg tablets x 4 iw Outcome: 13:41 Discharge ordered by . ms3 13:43 Discharged to home ambulatory, with family, iw 13:43 Condition: improved 13:43 Discharge instructions given to patient, Instructed on pt left prior to discharge instructions 13:45 Patient left the ED. iw Signatures: Laila Foreman, RN RN iw Maggy Beasley RN RN aa5 Ramiro Piña DO DO ms3 Mariann Mckeon md2 Marquise Eng MD MD ec2 Corrections: (The following items were deleted from the chart) 13:43 12:00 Reassessment: pt not in lobby iw iw
[2024-05-25 13:49] VITALS: BP 141/76; TEMP 97.8; O2SAT 100
== END 2024-05-25 13:45 | disposition home or self-care (01) ==
LOC: ER 11:14
DX: R07.9 Chest pain, unspecified (principal); R11.2 Nausea with vomiting, unspecified
CPT/HCPCS: 99283

== ENCOUNTER 2024-05-27 16:29 | Emergency (ER) | payer SELFPAY ==
--- OUTSIDE RECORDS SUMMARY | 2024-05-27 16:36 | XMS REPORT | Continuity of Care Document ---
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 [id number] Henry Contreras 2023-10-04 15:25:52 2023-10-04 15:25:[address] [facility] [id number] Henry Contreras 2023-10-01 00:00:00 2023-10-01 00:00:00 Telephone [facility] MEDICAL OFFICE BUILDING 1.840.114 350.1.13.10 4.2.7.2.686 [id number] [facility] 2023-09-16 16:03:08 2023-09-16 16:03:[address] [facility] [id number] Henry Contreras 2023-08-01 10:00:49 2023-08-01 10:00:[address] [facility] [id number] Henry Contreras 2023-07-23 14:20:00 2023-07-23 16:57:02 Outpatient INDIO OLIVEROS [facility] [id number] [facility] 2023-07-23 14:20:00 2023-07-23 16:57:02 Office Visit [facility] 1.840.114 350.1.13.10 4.2.7.2.686 [id number] [facility] 2023-07-23 00:00:00 2023-07-23 00:00:00 Orders Only Doctor Unassigned, [place] [facility] 1.840.114 350.1.13.10 4.2.7.2.686 [id number] [facility] 2023-07-04 16:48:23 2023-07-04 16:48:23 Outpatient [facility] [id number] Henry Contreras 2023-06-18 10:35:36 2023-06-18 10:35:36 Outpatient [facility] [id number] Henry Contreras 2023-06-05 00:00:00 2023-06-05 00:00:00 Orders Only Doctor Unassigned, [place] [facility] 1.2.840.114 350.1.13.10 4.2.7.2.686 [id number] [facility] 2023-06-04 16:00:39 2023-06-04 16:00:39 Outpatient [facility] [id number] Henry Quiles Dar[place] 2023-05-24 15:38:52 2023-05-24 15:38:52 Outpatient [facility] [id number] Henry Quiles [place] 2023-05-22 00:00:00 2023-05-22 00:00:00 Letter (Out) Neurology [facility] OFF[facility] 1.2.840.114 350.1.13.10 4.2.7.2.686 [id number] [facility] 2023-05-20 00:00:00 2023-05-20 00:00:00 Orders Only Doctor Unassigned, [place] [facility] 1.2.840.114 350.1.13.10 4.2.7.2.686 [id number] [facility] 2023-05-17 15:07:14 2023-05-17 15:07:14 Outpatient [facility] [id number] Henry Quiles Ben 2023-03-02 12:27:43 2023-03-02 12:27:43 Outpatient [facility] [id number] Henry Quiles Ben 2023-01-09 17:11:26 2023-01-09 17:11:26 Outpatient [facility] [id number] Henry Contreras 2022-11-04 14:04:00 2022-11-05 11:09:00 Emergency JESS FALCON [facility] [id number] [facility] 2022-09-24 12:33:00 2022-09-24 12:51:00 Emergency Heri Snow [facility] 1..114 350.1.13.10 4.2.7.2.686 [id number] [facility] 2022-09-22 00:00:00 2022-09-22 00:00:00 [facility] 1..114 350.1.13.10 4.2.7.2.686 [id number] [facility] 2022-09-18 10:09:00 2022-09-19 14:28:00 Inpatient EM Marly Mendenhall [facility] OBSE [id number] [facility] 2022-09-16 22:50:00 2022-09-17 01:40:00 Emergency EM Guero, Asim [facility] FABI [id number] [facility] 2022-09-14 14:52:00 2022-09-15 14:00:00 Inpatient EM Vladimir Forbes [facility] TELE [id number] [facility] 2022-09-13 09:34:00 2022-09-13 13:00:00 Emergency EM Brad Woodall [facility] FABI [id number] [facility] 2022-09-10 23:39:00 2022-09-11 11:28:00 Emergency EM Russel Sewell [facility] [id number] [facility] Martín [facility] 2022-09-10 18:57:00 2022-09-10 20:20:00 Emergency Lisa Morfin Whitney [facility] 1.84.114 350.1.13.10 4.2.7.2.686 [id number] [facility] 2022-09-10 18:57:00 2022-09-10 20:20:00 Emergency X SANDRITA KEY [facility] ERT [id number] [facility] 2022-09-09 20:45:00 2022-09-09 22:46:00 Emergency X SANDRITA KEY [facility] ERT [id number] [facility] 2022-09-09 20:45:00 2022-09-09 22:46:00 Emergency Sandrita Key [facility] 1..840.114 350.1.13.10 4.2.7.2.686 [id number] [facility] 2022-09-06 18:09:00 2022-09-07 00:51:00 Emergency X TAYO BOYD [facility] ERT [id number] [facility] 2022-09-06 18:09:00 2022-09-07 00:51:00 Emergency Tayo Boyd [facility] 1..840.114 350.1.13.10 4.2.7.2.686 [id number] [facility] 2022-08-21 14:11:33 2022-08-21 14:11:33 Outpatient [facility] [id number] Henry Contreras 2022-07-17 15:03:48 2022-07-17 15:03:48 Outpatient [facility] [id number] Henry Quiles Ben 2021-10-02 15:56:00 2021-10-02 19:00:00 Emergency X JAVED FRANK [facility] ERT [id number] [facility] 2021-10-02 15:56:00 2021-10-02 19:00:00 Emergency Javed Frank [facility] 1..840.114 350.1.13.10 4.2.7.2.686 [id number] [facility] 2021-05-05 13:22:00 2021-05-05 14:48:00 Emergency X DEON NUNEZ [facility] ERT [id number] [facility] 2021-05-05 13:22:00 2021-05-05 14:48:00 Emergency Deon Nunez [facility] 1.2.840.114 350.1.13.10 4.2.7.2.686 [id number] [facility] 2021-05-05 00:00:00 2021-05-05 00:00:00 Orders Only Doctor Unassigned, [place] [facility] 1.2.840.114 350.1.13.10 4.2.7.2.686 [id number] [facility] 2019-12-15 17:11:56 2019-12-15 18:04:00 [facility] 1.2.840.114 350.1.13.10 4.2.7.2.686 [id number] 2019-12-15 17:11:56 2019-12-15 18:04:00 Emergency Kp Gilliland [facility] 1.2.840.114 350.1.13.10 4.2.7.2.686 [id number] [facility] 2019-12-15 17:11:56 2019-12-15 17:11:56 Emergency X Kp GILLILAND [facility] ERT [id number] [facility] 2019-10-25 18:31:31 2019-10-25 19:21:00 Emergency Kristin Miller [facility] 1.2.840.114 350.1.13.10 4.2.7.2.686 [id number] 2019-10-25 18:31:31 2019-10-25 19:21:00 Emergency Kristin Miller [facility] 1.2.840.114 350.1.13.10 4.2.7.2.686 [id number] [facility] 2019-10-25 18:31:31 2019-10-25 18:31:31 Emergency X KRISTIN MILLER [facility] ERT [id number] [facility] 2019-08-13 13:30:00 2019-08-13 14:36:00 Emergency Floridalma Evans [facility] 1.2.840.114 350.1.13.10 4.2.7.2.686 [id number] 2019-08-13 13:30:00 2019-08-13 14:36:00 Emergency Floridalma Evans [facility] 1.2.840.114 350.1.13.10 4.2.7.2.686 [id number] [facility] 2019-08-13 13:30:00 2019-08-13 14:36:00 Emergency X FLORIDALMA EVANS [facility] ERT [id number] [facility] 2019-07-22 13:42:11 2019-07-22 19:02:00 Emergency Unknown, Attending Lisa Morfin [facility] 1.2.840.114 350.1.13.10 4.2.7.2.686 [id number] 2019-07-22 13:42:11 2019-07-22 19:02:00 Emergency X LISA MORFIN [facility] ERT [id number] [facility] 2019-07-22 13:42:11 2019-07-22 19:02:00 Emergency Unknown, Attending Lisa Morfin [facility] 1.2.840.114 350.1.13.10 4.2.7.2.686 [id number] [facility] 2019-07-13 20:17:19 2019-07-13 21:48:00 Emergency X LEXIEHENRY [facility] ERT [id number] [facility] 2019-07-13 20:17:19 2019-07-13 21:48:00 Emergency Lexie, Henry [facility] 1.2.840.114 350.1.13.10 4.2.7.2.686 [id number] [facility] 2019-07-10 14:26:03 2019-07-10 16:33:00 Emergency X DEBBIE PAYTON [facility] ERT [id number] [facility] 2019-07-10 14:26:03 2019-07-10 16:33:00 Emergency Debbie Payton [facility] 1.2840.114 350.1.13.10 4.2.7.2.686 [id number] [facility] 2019-07-04 19:09:02 2019-07-04 22:51:00 Emergency X LISA MORFIN [facility] ERT [id number] [facility] 2019-06-30 10:33:08 2019-06-30 13:10:00 Emergency X DEON [facility] ERT [id number] [facility] 2019-05-25 11:58:19 2019-05-25 15:37:00 Emergency X DEON NUNEZ [facility] ERT [id number] [facility] 2019-04-09 22:29:37 2019-04-09 23:28:00 Emergency X FLORIDALMA EVANS [facility] ERT [id number] [facility] 2019-01-21 18:38:01 2019-01-21 19:59:00 Emergency Le Ramirez [facility] 1.2840.114 350.1.13.10 4.2.7.2.686 [id number] 2019-01-21 18:38:01 2019-01-21 19:59:00 Emergency Le Ramirez [facility] 1.2840.114 350.1.13.10 4.2.7.2.686 [id number] [id number] [facility] Results Test Description Test Time Test Comments Results Result Co mments Source Henry Quiles Ben [id number] 04:20:00* Test Item Value Reference Range Interpretation Comme nts T3UP (test code = T3UP) 40.9 % 23.5-40.5 H FREE [id number] 04:20:00* Test Item Value Reference Range Interpretation Comme nts FT4 (test code = FT4) 1.05 ng/dL 0.78-2.19 Thyroxine (T4) free index in Serum or [id number] 04:19:00* Test Item Value Reference Range Interpretation Comme nts Thyroxine (T4) free index in Serum or Plasma (test code = 11718-3) 1.05 ng/dL 0.78-2.19 N [facility])Thyroid hormone uptake (T-uptake) in Serum or P 2023-11-24 04:18:00* Test Item Value Reference Range Interpretation Comme nts Thyroid hormone uptake (T-up take) in Serum or Plasma (test code = 33158-7) 40.9 % 23.5-40.5 H [facility])URINE DRUG [id number] 00:43:00* Test Item Value Reference Range Interpretation [...] abuse 5 panel - Urine by Screen [id number] 00:40:00 NegativeNegativeNegativeNegativeNegativeNegativeNegative[facility])[id number] 00:33:00* Test Item Value Reference Range Interpretation [...] /HPF 0-2 Urinalysis panel - Urine by Aghz3149-05-25 00:33:00* Test Item Value Reference Range Interpretation Comme nts Ketones [Presence] in Urine (test code = 71140-2) 15 MG/DL NEG N pH of Urine (test code = 2756-5) 5.5 1 5.0-7.5 N Urobilinogen [Presence] in U rine (test code = 86575-6) 0.2 EU/DL 0.2-1.0 N Specific gravity of Urine (t est code = 2965-2) 1.013 1 1.0-1.025 N Leukocytes [Presence] in Uri ne sediment by Light microscopy (test code = 75037-5) 10 /HPF 0.0-5.0 H Erythrocytes [Presence] in U rine sediment by Light microscopy (test code = 44198-9) 2 /HPF 0.0-2.0 N [facility])VITAMIN [id number] 22:47:00* Test Item Value Reference Range Interpretation Comme nts B12 (test code = B12) 880 pg/mL 239-931 [id number] 22:47:00* Test Item Value Reference Range Interpretation Comme nts FOLATE (test code = FOLATE) 8.9 ng/mL 2.76-20.0 THYROID STIMULATION [id number] 22:47:00* Test Item Value Reference Range Interpretation Comme nts TSH (test code = TSH) 6.62 UIU/ML 0.465-4.68 H Cobalamin (Vitamin B12) [Mass/volume] in Goqte8136-32-23 22:47:00* Test Item Value Reference Range Interpretation Comme nts Cobalamin (Vitamin B12) [Mass/volume] in Serum or Plasma (test code = 2132-9) 880 pg/mL 239.0-931.0 N [facility])Folate [Mass/volume] in Serum or Znufgj7683-29-97 22:47:00* Test Item Value Reference Range Interpretation Comme nts Folate [Mass/volume] in Seru m or Plasma (test code = 2284-8) 8.9 ng/mL 2.76-20.0 N [facility])Thyrotropin in Serum or Cdgier5612-38-12 22:47:00* Test Item Value Reference Range Interpretation Comme nts Thyrotropin in Serum or Plas ma (test code = 18990-2) 6.62 UIU/ML 0.465-4.68 H [facility])ER SCREEN FOR HIV / 22:46:00* Test Item Value Reference Range Interpretation Comme nts HIV 1/2 AB (test code = SCRN HIV) NEGATIVE NEGATIVE This test is us ed for SCREENING purposes only. All reactive results are prelimenary and confirmation results will follow. HIV 1+2 Ab [Units/volume] in Tvzcq9878-26-15 22:45:[facility]HEPATITIS C ANTIBODY IZCDON9516-11-00 22:28:00* Test Item Value Reference Range Interpretation Comme nts SCRN HCV (test code = SCRN HCV) NEGATIVE NEGATIVE Hepatitis C Anti body test is for screening purposes only. All reactives will be confirmed by additional testing. Hepatitis C virus Ab [Presence] in Zuabg5461-86-72 22:27:00[facility])B-HCG QUAL (KIT)2023-11-23 22:01:00* Test Item Value Reference Range Interpretation Comme nts HCGQUAL (test code = HCGQUAL) NEGATIVE NEGATIVE URINE: NEGATIVE = < 20 mIU/ML; POSITIVE= >/= 20 mIU/ML SERUM: NEGATIVE = < 10 mIU/ML; POSITIVE= >/= 10 mIU/ML SOURCE (test code = SOURCE) SERUM HCG INTERNAL POSITIVE CNTRL (test code = HCGIPC) PASS PASS HCG LOT # (test code = UHCGLOT) [id number] HCG EXPIRATION DATE (test code = UHCGEXP) Choriogonadotropin.beta subunit ( qakq0218-82-11 22:01:00* Test Item Value Reference Range Interpretation Comme nts Specimen source [Identifier] of Body fluid (test code = 66529-2) SERUM N Reagent Lot number (test cod e = 45399-2) 1 N [facility])CT HEAD W/O [id number] 22:00:00 [facility] : 1975 Sex: F[address] [address]NHNEKEOLCD IMAGING REPORTPatient Name: ROBERT, CONCEPTIONDate of Service: 28-77-9901Opl: 48 Sex: F Order #: [id number] Room: ERSDOB: 1975 X-Ray Number: [id number] Record Number: [id number] Hospital Number: [id number] Physician: LAWRENCE MEJIASOrdering Physician: LAWRENCE MEJIASPROCEDURE: CTHEAD [...] 21:59:03CT Head and Orbit - bilateral WO [id number] 21:59:03 ORDER 1400: CT HEAD W/O CONT (LOINC: 20582-5)ORDER DATE: November 24, 2023 12:50:00 AM [facility] ([place])CT ABDOMEN/PELVIS [id number] 21:54:00 [facility]ERT CONCEPTION : 1975 Sex: F[address] [address]SXIXZZFSMU IMAGING REPORTPatient Name: ROBERT CONCEPTIONDate of Service: 14-86-3067Qtm: 48 Sex: F Order #: [id number] Room: ERSDOB: 1975 X-Ray Number: [id number] Record Number: [id number] Hospital Number: [id number] Physician: LAWRENCE MEJIASOrdering Physician: LAWRENCE MEJIASPROCEDURE: CT [...] YUNIOR MCKEON 2023-11-23 21:53:03 CT Abdomen and Razcye9168-88-19 21:53:03ORDER 1500: CT ABDOMEN/PELVIS WITHOUT (LOINC: 26832-7)ORDER DATE: November 24, 2023 12:50:00 AM [facility])[id number] 21:31:00* Test Item Value Reference Range Interpretation [...] 70-99 Fasting glucos e normal <100 MG/DL- [employer] recommendation CALCIUM (test code = [...] of age is not validated by the chief underwriter and may not represent the patients true [...] should be used in the calculation". CREATINE [id number] 21:31:00* Test Item Value Reference Range Interpretation Comme nts CK (test code = CK) 115 U/L 30-135 BLOOD ALCOHOL (ETOH)2023-11-23 21:31:00* Test Item Value Reference Range Interpretation Comme nts ALCOHOL BLOOD LEVEL (test code = ALC BLD) <10 MG/DL 0-10 Results ar e to be used for medical purposes (treatment) only. Not intended for non medical purposes. Ethanol [Mass/volume] in Bkawq5878-42-03 21:30:00* Test Item Value Reference Range Interpretation Comme nts Ethanol [Mass/volume] in Blo od (test code = 5640-8) <10 0.0-10.0 [facility]Creatine kinase isoenzymes [interpretation] in 2023-11-23 21:30:00* Test Item Value Reference Range Interpretation Comme nts Creatine kinase isoenzymes [interpretation] in Serum or Plasma Narrative (test code = 33068-8) 115 U/L 30.0-135.0 [facility] ([place])Comprehensive metabolic 2000 panel - Serum or P 2023-11-23 21:27:00* Test Item Value Reference Range Interpretation Comme nts Sodium [Moles/volume] in Blood (test code = 2947-0) 137 MMOL/L 137.0-145.0 N Potassium [Moles/volume] in Blood (test code = 6298-4) 4.2 MMOL/L 3.5-5.1 N Chloride [Moles/volume] in Blood (test code = 2069-3) 100 MMOL/L 98.0-107.0 N Carbon dioxide, total [Moles/volume] in Blood (test code = 08007-5) 24 MMOL/L 22.0-30.0 N Urea nitrogen [Mass/volume] in Serum or Plasma (test code = 3094-0) 16 MG/DL 7.0-17.0 N Creatinine [Mass/volume] in Blood (test code = 53036-6) 0.6 MG/DL 0.7-1.2 L Glucose [Mass/volume] in Blood (test code = 2339-0) 80 MG/DL 70.0-99.0 N Calcium [Mass/volume] in Serum or Plasma (test code = 66715-9) 10.3 MG/DL 8.4-10.2 H Protein [Mass/volume] in Serum or Plasma (test code = 2885-2) 9.9 G/DL 6.3-8.2 H Albumin [Presence] in Serum or Plasma (test code = 12158-7) 4.7 G/DL 3.5-5.0 N Bilirubin direct and total panel [Mass/volume] - Serum or Plasma (test code = 25688-6) 0.8 MG/DL 0.2-1.3 N Aspartate aminotransferase [Enzymatic [...] 50 percent [- Reported] (test code = 12104-0) 113.0 mL/min/1.73m2 N Anion gap in Serum or Plasma (test code = 28865-5) 13 mmol/L 4.0-12.0 H [facility])[id number] 21:15:00* Test Item Value Reference Range Interpretation [...] 1.2-7.2 CBC W Auto Differential panel - [id number] 21:15:00* Test Item Value Reference Range Interpretation Comme nts Leukocytes other [Identifier ] in Blood by Automated count (test code = 95419-4) 4.5 K/UL 3.5-10.9 N Erythrocytes [#/volume] in B lood (test code = 00295-6) 4.91 M/UL 4.0-5.0 N Hemoglobin A/Hemoglobin.tota l in Blood (test code = 4546-8) 13.8 G/DL 11.5-15.5 N Hematocrit [Volume Fraction] of Blood (test code = 49612-0) 42.4 % 34.0-46.0 N Erythrocyte mean corpuscular volume [Entitic volume] (test code = 94748-7) 86.4 FL 80.0-98.0 N Erythrocyte mean corpuscular hemoglobin [Entitic mass] (test code = 27675-1) 28.1 PG 28.0-32.0 N Erythrocyte mean corpuscular hemoglobin concentration [Mass/volume] (test code = 84459-6) 32.5 G/DL 32.5-36.5 N Erythrocyte distribution wid th [Ratio] (test code = 88030-0) 14.9 % 11.5-14.5 H Platelets panel - Blood by Automated count (test code = 99693-3) 124 K/UL 150.0-450.0 L Platelet mean volume [Entiti c volume] in Blood by Automated count (test code = 88945-7) 10.0 FL 7.4-10.4 N Neutrophils.segmented/100 leukocytes in Blood (test code = 42083-5) 53.3 % 40.0-75.0 N Lymphocytes Variant/100 leuk ocytes in Blood (test code = 19245-2) 33.9 % 24.0-44.0 N Lymphocytes+Monocytes/100 leukocytes in Blood (test code = 4662-3) 10.0 % 0.0-13.0 N Eosinophils [#/volume] in Bl ood (test code = 53655-7) 2.2 % 0.0-4.0 N Basophils [#/volume] in Bloo d (test code = 68203-2) 0.4 % 0.0-2.0 N Immature granulocytes/100 leukocytes in Blood (test code = 64429-3) 0.2 % 0.0-1.0 N Nucleated erythrocytes [#/vo lume] in Blood (test code = 62183-7) 0 /100 WBC N Neutrophils [#/volume] in Bl ood (test code = 69487-3) 2.4 K/UL 1.2-7.2 N [facility])PAP TEST, THINPREP, [id number] 16:02:24* Test Item Value Reference Range Interpretation Comme nts SOURCE: (test code = 8001) Cervical/Endoce rvical SLIDES: (test code = 8011) 1 LMP: (test code = 8021) SEE NOTE POST MENOPAUSAL SPECIMEN ADEQUACY: (test code = 46590) (NOTE) Satisfactory for evaluation. Endocervical cells/transformation zone component present. INTERPRETATION: (test code = 68708) NILM/NO EPITH. ABNORMALITY;SEE BELOW --- - NEGATIVE FOR INTRAEPITHELIAL LESION OR MALIGNANCY (NILM) ---- WARNING COORDINATION METEOROLOGIST : (test code = 8101) Jami Smalls LOCATION: (test code = 07248) (NOTE) Specimens proces sed and interpreted at [facility], [address] [place] [address], , CLIA: [id number] CPT: (test code = 8140) (NOTE) 79562 UNLESS OTH ERWISE INDICATED, COMPUTER AIDED AND WARNING COORDINATION METEOROLOGIST SCREENING PERFORMED. The Pap test is a screening test with an inherent, but low probability of error. Your patient should be reminded to consult you immediately if she experiences any suspicious signs or symptoms, regardless of her Pap test result. An alternate report format containing images or consolidated prior Pap history is available as applicable. HPV HIGH RISK WITH GENOTYPE, [id number] 15:53:52* Test Item Value Reference Range Interpretation Comme nts HPV HIGH RISK INTERP (test code = 56586) NEGATIVE NEGATIVE HPV 16 (test code = 66551) NEGATIVE HPV 18 (test code = 36306) NEGATIVE HPV, HR, OTHER GENOTYPES (test code = 36256) NEGATIVE Testing methodol ian is real-time PCR [...] TESTING PERFORMED AT [facility] [address] [place] [address] FLEET MANAGER: JATIN FELIPE M.D. CLIA NUMBER [id number] [facility] [place]. [id number] HPV HIGH RISK WITH GENOTYPE, [id number] 00:00:00* Test Item Value Reference Range Interpretation Comme nts HPV HIGH RISK INTERP (test c ode = 29192) NEGATIVE HPV 16 (test code = 30135) NEGATIVE HPV 18 (test code = 26021) NEGATIVE HPV, HR, OTHER GENOTYPES (te st code = 37369) NEGATIVE PDFE (test code = PDFReport) PDF Henry ContrerasPAP TEST, THINPREP, [id number] 00:00:00* Test Item Value Reference Range Interpretation Comme nts SOURCE: (test code = 8001) Cervical/Endocervical SLIDES: (test code = 8011) 1 LMP: (test code = 8021) SEE NOTE SPECIMEN ADEQUACY: (test code = 14228) (NOTE) INTERPRETATION: (test code = 49848) NILM/NO EPITH. ABNORMALITY;SEE BELOW WARNING COORDINATION METEOROLOGIST: (test code = 8101) Jami Smalls LOCATION: (test code = 06071) (NOTE) CPT: (test code = 8140) (NOTE) Henry ContrerasHPV HIGH RISK WITH GENOTYPE, [id number] 00:00:00* Test Item Value Reference Range Interpretation Comme nts HPV HIGH RISK INTERP (test c ode = 51000) NEGATIVE HPV 16 (test code = 95458) NEGATIVE HPV 18 (test code = 95965) NEGATIVE HPV, HR, OTHER GENOTYPES (te st code = 94232) NEGATIVE PDFE (test code = PDFReport) PDF Henry Quiles AustinPAP TEST, THINPREP, [id number] 00:00:00* Test Item Value Reference Range Interpretation Comme nts SOURCE: (test code = 8001) Cervical/Endocervical SLIDES: (test code = 8011) 1 LMP: (test code = 8021) SEE NOTE SPECIMEN ADEQUACY: (test code = 56911) (NOTE) INTERPRETATION: (test code = 11970) NILM/NO EPITH. ABNORMALITY;SEE BELOW WARNING COORDINATION METEOROLOGIST: (test code = 8101) Jami Smalls LOCATION: (test code = 58892) (NOTE) CPT: (test code = 8140) (NOTE) Henry ContrerasHPV HIGH RISK WITH GENOTYPE, [id number] 00:00:00* Test Item Value Reference Range Interpretation Comme nts HPV HIGH RISK INTERP (test c ode = 11869) NEGATIVE HPV 16 (test code = 12388) NEGATIVE HPV 18 (test code = 07497) NEGATIVE HPV, HR, OTHER GENOTYPES (te st code = 40336) NEGATIVE PDFE (test code = PDFReport) PDF Henry ContrerasPAP TEST, THINPREP, [id number] 00:00:00* Test Item Value Reference Range Interpretation Comme nts SOURCE: (test code = 8001) Cervical/Endocervical SLIDES: (test code = 8011) 1 LMP: (test code = 8021) SEE NOTE SPECIMEN ADEQUACY: (test code = 60521) (NOTE) INTERPRETATION: (test code = 65485) NILM/NO EPITH. ABNORMALITY;SEE BELOW WARNING COORDINATION METEOROLOGIST: (test code = 8101) Jami Smalls LOCATION: (test code = 62554) (NOTE) CPT: (test code = 8140) (NOTE) Henry ContrerasPAP TEST, THINPREP, IMAGED [ADDED]2023-10-10 00:00:00* Test Item Value Reference Range Interpretation Comme nts SOURCE: (test code = 8001) Unspecified SLIDES: (test code = 8011) 2 LMP: (test code = 8021) NOT GIVEN SPECIMEN ADEQUACY: (test code = 58055) (NOTE) INTERPRETATION: (test code = 63503) UNSATISFACTORY; SEE BELOW OTHER COMMENTS: (test code = 8081) (NOTE) WARNING COORDINATION METEOROLOGIST: (test code = 8101) Jose Bustillos QC TECHNOLOGIST: (test code = 8111) RAUL Wilde(ASCP),IAC LOCATION: (test code = 82398) (NOTE) CPT: (test code = 8140) (NOTE) Henry F AustinHPV HIGH RISK IF ASC/LSIL, THINPREP [ADDED]2023-10-10 00:00:00* Test Item Value Reference Range Interpretation Comme nts HPV HIGH RISK IF ASC/LSIL, THINPREP (test code = 96412) CRITERIA NOT MET Henry F AustinPAP TEST, THINPREP, IMAGED [ADDED]2023-10-10 00:00:00* Test Item Value Reference Range Interpretation Comme nts SOURCE: (test code = 8001) Unspecified SLIDES: (test code = 8011) 2 LMP: (test code = 8021) NOT GIVEN SPECIMEN ADEQUACY: (test code = 60598) (NOTE) INTERPRETATION: (test code = 82858) UNSATISFACTORY; SEE BELOW OTHER COMMENTS: (test code = 8081) (NOTE) WARNING COORDINATION METEOROLOGIST: (test code = 8101) Jose Bustillos QC TECHNOLOGIST: (test code = 8111) RAUL Wilde(ASCP),IAC LOCATION: (test code = 63264) (NOTE) CPT: (test code = 8140) (NOTE) Henry F AustinHPV HIGH RISK IF ASC/LSIL, THINPREP [ADDED]2023-10-10 00:00:00* Test Item Value Reference Range Interpretation Comme nts HPV HIGH RISK IF ASC/LSIL, THINPREP (test code = 99841) CRITERIA NOT MET Henry F AustinPAP TEST, THINPREP, IMAGED [ADDED]2023-10-10 00:00:00* Test Item Value Reference Range Interpretation Comme nts SOURCE: (test code = 8001) Unspecified SLIDES: (test code = 8011) 2 LMP: (test code = 8021) NOT GIVEN SPECIMEN ADEQUACY: (test code = 04790) (NOTE) INTERPRETATION: (test code = 28305) UNSATISFACTORY; SEE BELOW OTHER COMMENTS: (test code = 8081) (NOTE) WARNING COORDINATION METEOROLOGIST: (test code = 8101) Jose Bustillos TECHNOLOGIST: (test code = 8111) Jason Whitman,RAUL(ASCP),IAC LOCATION: (test code = 10337) (NOTE) CPT: (test code = 8140) (NOTE) Henry Quiles AustinHPV HIGH RISK IF ASC/LSIL, THINPREP [ADDED]2023-10-10 00:00:00* Test Item Value Reference Range Interpretation Comme nts HPV HIGH RISK IF ASC/LSIL, THINPREP (test code = 50627) CRITERIA NOT MET Henry Quiles AustinGONORRHEA, NAAT, THINPREP [ADDED]2023-10-08 00:00:00* Test Item Value Reference Range Interpretation Comme nts GONORRHEA, NAAT, THINPREP (t est code = 89031) NEGATIVE Henry Quiles AustinCHLAMYDIA, NAAT, THINPREP [ADDED]2023-10-08 00:00:00* Test Item Value Reference Range Interpretation Comme nts CHLAMYDIA, NAAT, THINPREP (t est code = 07232) NEGATIVE PDFE (test code = PDFReport) PDF Henry Quiles AustinGONORRHEA, NAAT, THINPREP [ADDED]2023-10-08 00:00:00* Test Item Value Reference Range Interpretation Comme nts GONORRHEA, NAAT, THINPREP (t est code = 90940) NEGATIVE Henry Quiles AustinCHLAMYDIA, NAAT, THINPREP [ADDED]2023-10-08 00:00:00* Test Item Value Reference Range Interpretation Comme nts CHLAMYDIA, NAAT, THINPREP (t est code = 56332) NEGATIVE PDFE (test code = PDFReport) PDF Henry Quiles AustinGONORRHEA, NAAT, THINPREP [ADDED]2023-10-08 00:00:00* Test Item Value Reference Range Interpretation Comme nts GONORRHEA, NAAT, THINPREP (t est code = 79609) NEGATIVE Henry Quiles AustinCHLAMYDIA, NAAT, THINPREP [ADDED]2023-10-08 00:00:00* Test Item Value Reference Range Interpretation Comme nts CHLAMYDIA, NAAT, THINPREP (t est code = 86646) NEGATIVE PDFE (test code = PDFReport) PDF Henry F AustinTSH, THIRD [id number] 08:14:44* Test Item Value Reference Range Interpretation Comme shaina ALCALA, THIRD GENERATION (test code = 2821) 5.200 UIU/ML 0.400-4.100 H UNLESS OTHERWISE INDICATED, ALL TESTING PERFORMED AT [facility] [address] [place] [address] FLEET MANAGER: JATIN FELIPE M.D. IA NUMBER [id number] [facility] [place]. [id number] 00:00:00* Test Item Value Reference Range Interpretation Comme shaina ALCALA, THIRD GENERATION (test code = 2821) 5.200 UIU/ML Henry [id number] 00:00:00* Test Item Value Reference Range Interpretation Comme nts TSH, THIRD GENERATION (test code = 2821) 5.200 UIU/ML Henry [id number] 00:00:00* Test Item Value Reference Range Interpretation Comme shaian ALCALA, THIRD GENERATION (test code = 2821) 5.200 UIU/ML TRISTAN Grover [id number] 23:53:27* Test Item Value Reference Range Interpretation Comme shaina TSH, THIRD GENERATION (test code = 2821) 11.100 UIU/ML 0.400-4.100 H COMPREHENSIVE METABOLIC [id number] 23:46:03* Test Item Value Reference Range Interpretation Comme shaina GLUCOSE (test code = 2217) 97 MG/DL 70-99 BUN (test code = 2208) 7 MG/DL 6-20 CREATININE (test code = 2214) 0.61 MG/DL 0.60-1.30 eGFR (2020 CKD-EPI) (test code = 35200) 110 ML/MIN/1.73 >60 CALC BUN/CREAT (test code [...] 13 U/L 5-40 CBC W/AUTO DIFF WITH [id number] 08:48:44* Test Item Value Reference Range Interpretation [...] 0.00-0.10 ABS NUCLEATED RBCS (test code = 75374) 0.00 K/UL 0.00-0.11 UNLESS OTHER MONTOYA INDICATED, ALL TESTING PERFORMED AT [facility] [address] [place] [address] FLEET MANAGER: JATIN FELIPE M.D. CLIA NUMBER [id number] [facility] [place] [place]. [id number] 00:00:00* Test Item Value Reference Range Interpretation Comme nts TSH, THIRD GENERATION (test code = 2821) 11.100 UIU/ML Henry ContrerasCBC W/AUTO [id number] 00:00:00* Test Item Value Reference Range Interpretation [...] ABS NUCLEATED RBCS (test cod e = 89513) 0.00 K/UL Henry ContrerasCOMPREHENSIVE METABOLIC [id number] 00:00:00* Test Item Value Reference Range Interpretation Comme nts GLUCOSE (test code = 2217) 97 MG/DL BUN (test code = 2208) 7 MG/DL CREATININE (test code = 2214) 0.61 MG/DL eGFR (2020 CKD-EPI) (test code = 67955) 110 ML/MIN/1.73 CALC BUN/CREAT (test code = [...] (test code = 2219) 13 U/L Henry [id number] 00:00:00* Test Item Value Reference Range Interpretation Comme nts TSH, THIRD GENERATION (test code = 2821) 11.100 UIU/ML Henry ContrerasCBC W/AUTO [id number] 00:00:00* Test Item Value Reference Range Interpretation [...] ABS NUCLEATED RBCS (test cod e = 53800) 0.00 K/UL Henry ContrerasCOMPREHENSIVE METABOLIC [id number] 00:00:00* Test Item Value Reference Range Interpretation Comme nts GLUCOSE (test code = 2217) 97 MG/DL BUN (test code = 2208) 7 MG/DL CREATININE (test code = 2214) 0.61 MG/DL eGFR (2020 CKD-EPI) (test code = 74645) 110 ML/MIN/1.73 CALC BUN/CREAT (test code = [...] (test code = 2219) 13 U/L Henry [id number] 00:00:00* Test Item Value Reference Range Interpretation Comme nts TSH, THIRD GENERATION (test code = 2821) 11.100 UIU/ML Henry ContrerasCBC W/AUTO [id number] 00:00:00* Test Item Value Reference Range Interpretation [...] ABS NUCLEATED RBCS (test cod e = 31074) 0.00 K/UL Henry ContrerasCOMPREHENSIVE METABOLIC [id number] 00:00:00* Test Item Value Reference Range Interpretation Comme nts GLUCOSE (test code = 2217) 97 MG/DL BUN (test code = 2208) 7 MG/DL CREATININE (test code = 2214) 0.61 MG/DL eGFR (2020 CKD-EPI) (test code = 83847) 110 ML/MIN/1.73 CALC BUN/CREAT (test code = [...] (test code = 2219) 13 U/L Henry [id number] 01:13:06* Test Item Value Reference Range Interpretation Comme nts TRANSFERRIN (test code = 4936) 315 MG/DL 200-360 UNLESS OTHERWISE INDICATED, ALL TESTING PERFORMED AT [facility] [address] [place] [address] FLEET MANAGER: JATIN FELIPE M.D. CLIA NUMBER [id number] [facility] [place]. [id number] LIPID [id number] 01:12:48* Test Item Value Reference Range Interpretation [...] SPECIMENS. FOR MOREINFORMATION, SEE CLIENT ANNOUNCEMENT AT [email or web address] [email or web address] RATIO LDL/HDL (test code = 2237) 1.34 RATIO <3.22 COMPREHENSIVE METABOLIC [id number] 01:12:48* Test Item Value Reference Range Interpretation [...] IRON BINDING CAPACITY AND IRON AND % [id number] 01:12:48* Test Item Value Reference Range Interpretation Comme nts IRON, SERUM (test code = 222) 51 UG/DL 37-145 UNSATURATED IBC (test code = 40208) 356 UG/DL 112-347 H CALC TOTAL IBC (test code = 2076) 407 UG/DL 250-450 CALC % IRON SAT (test code = 2078) 13 % 20-50 L [id number] 00:59:24* Test Item Value Reference Range Interpretation Comme nts FERRITIN (test code = 2074) 20 NG/ML 13-200 LIPID [id number] 00:00:00* Test Item Value Reference Range Interpretation Comme nts CHOLESTEROL (test code = 2210) 191 MG/DL TRIGLYCERIDES (test code = 2232) 89 MG/DL HDL CHOLESTEROL (test code = 2220) 74 MG/DL CALC LDL CHOL (test code = 2237) 99 MG/DL RISK RATIO LDL/HDL (test cod e = 2238) 1.34 RATIO Henry F BenCOMPREHENSIVE METABOLIC [id number] 00:00:00* Test Item Value Reference Range Interpretation Comme nts GLUCOSE (test code = 2217) 92 MG/DL BUN (test code = 2208) 15 MG/DL CREATININE (test code = 2214) 0.65 MG/DL eGFR (2020 CKD-EPI) (test code = 69862) 108 ML/MIN/1.73 CALC BUN/CREAT (test code = [...] (test code = 2219) 7 U/L Henry F BenIRON BINDING CAPACITY AND IRON AND % [id number] 00:00:00* Test Item Value Reference Range Interpretation Comme nts IRON, SERUM (test code = 2221) 51 UG/DL UNSATURATED IBC (test code = ) 356 UG/DL CALC TOTAL IBC (test code = 2076) 407 UG/DL CALC % IRON SAT (test code = 2078) 13 % Henry [id number] 00:00:00* Test Item Value Reference Range Interpretation Comme nts FERRITIN (test code = 2074) 20 NG/ML Henry [id number] 00:00:00* Test Item Value Reference Range Interpretation Comme nts TRANSFERRIN (test code = 4936) 315 MG/DL Henry ContrerasLIPID [id number] 00:00:00* Test Item Value Reference Range Interpretation Comme nts CHOLESTEROL (test code = 2210) 191 MG/DL TRIGLYCERIDES (test code = 2232) 89 MG/DL HDL CHOLESTEROL (test code = 2220) 74 MG/DL CALC LDL CHOL (test code = 2237) 99 MG/DL RISK RATIO LDL/HDL (test cod e = 2238) 1.34 RATIO Henry ContrerasCOMPREHENSIVE METABOLIC [id number] 00:00:00* Test Item Value Reference Range Interpretation Comme nts GLUCOSE (test code = 2217) 92 MG/DL BUN (test code = 2208) 15 MG/DL CREATININE (test code = 2214) 0.65 MG/DL eGFR (2020 CKD-EPI) (test code = 41862) 108 ML/MIN/1.73 CALC BUN/CREAT (test code = [...] ContrerasIRON BINDING CAPACITY AND IRON AND % [id number] 00:00:00* Test Item Value Reference Range Interpretation Comme nts IRON, SERUM (test code = 2221) 51 UG/DL UNSATURATED IBC (test code = ) 356 UG/DL CALC TOTAL IBC (test code = 2076) 407 UG/DL CALC % IRON SAT (test code = 2078) 13 % Henry [id number] 00:00:00* Test Item Value Reference Range Interpretation Comme nts FERRITIN (test code = 2074) 20 NG/ML Henry [id number] 00:00:00* Test Item Value Reference Range Interpretation Comme nts TRANSFERRIN (test code = 4936) 315 MG/DL Henry ContrerasLIPID [id number] 00:00:00* Test Item Value Reference Range Interpretation Comme nts CHOLESTEROL (test code = 2210) 191 MG/DL TRIGLYCERIDES (test code = 2232) 89 MG/DL HDL CHOLESTEROL (test code = 2220) 74 MG/DL CALC LDL CHOL (test code = 7) 99 MG/DL RISK RATIO LDL/HDL (test cod e = 2238) 1.34 RATIO Henry ContrerasCOMPREHENSIVE METABOLIC [id number] 00:00:00* Test Item Value Reference Range Interpretation Comme nts GLUCOSE (test code = 7) 92 MG/DL BUN (test code = 2208) 15 MG/DL CREATININE (test code = 2214) 0.65 MG/DL eGFR (2020 CKD-EPI) (test code = 70365) 108 ML/MIN/1.73 CALC BUN/CREAT (test code = [...] ContrerasIRON BINDING CAPACITY AND IRON AND % [id number] 00:00:00* Test Item Value Reference Range Interpretation Comme nts IRON, SERUM (test code = 2222) 51 UG/DL UNSATURATED IBC (test code = 36082) 356 UG/DL CALC TOTAL IBC (test code = 207) 407 UG/DL CALC % IRON SAT (test code = 207) 13 % Henry [id number] 00:00:00* Test Item Value Reference Range Interpretation Comme nts FERRITIN (test code = 207) 20 NG/ML Henry [id number] 00:00:00* Test Item Value Reference Range Interpretation Comme nts TRANSFERRIN (test code = 4936) 315 MG/DL Henry ContrerasHEMOGLOBIN [id number] 03:08:40* Test Item Value Reference Range Interpretation Comme nts HEMOGLOBIN A1c (test code = 88801) 5.5 % 4.2-5.6 CBC W/AUTO DIFF WITH [id number] 02:29:36* Test Item Value Reference Range Interpretation [...] 0.00-0.10 ABS NUCLEATED RBCS (test code = 82973) 0.00 K/UL 0.00-0.11 CBC W/AUTO [id number] 00:00:00* Test Item Value Reference Range Interpretation [...] ABS NUCLEATED RBCS (test cod e = 07023) 0.00 K/UL Henry Quiles AustinHEMOGLOBIN [id number] 00:00:00* Test Item Value Reference Range Interpretation Comme nts HEMOGLOBIN A1c (test code = 68586) 5.5 % Henry ContrerasCBC W/AUTO [id number] 00:00:00* Test Item Value Reference Range Interpretation [...] ABS NUCLEATED RBCS (test cod e = 13627) 0.00 K/UL Henry Quiles AustinHEMOGLOBIN [id number] 00:00:00* Test Item Value Reference Range Interpretation Comme nts HEMOGLOBIN A1c (test code = 48298) 5.5 % Henry ContrerasCBC W/AUTO [id number] 00:00:00* Test Item Value Reference Range Interpretation [...] ABS NUCLEATED RBCS (test cod e = 18013) 0.00 K/UL Henry ContrerasHEMOGLOBIN [id number] 00:00:00* Test Item Value Reference Range Interpretation Comme nts HEMOGLOBIN A1c (test code = 48412) 5.5 % Henry ContrerasDRUGS OF [id number] 05:03:00* Test Item Value Reference Range Interpretation [...] 200 ng/mL Opiates 300 ng/mL URINALYSIS WITH [id number] 04:56:00* Test Item Value Reference Range Interpretation [...] (test code = USPERM) /HPF NONE URINE [id number] 04:53:00* Test Item Value Reference Range Interpretation [...] the FDA and the [employer] ([employer]) are more stringent than those required for this test. Therefore, the result should be interpreted with caution and close attention to other clinical and epidemiological data [id number] 16:00:00* Test Item Value Reference Range Interpretation Comme nts SALICYLATE (test code = 94B) <3.0 mg/dL 15.0-30.0 L LIVER [id number] 15:49:00* Test Item Value Reference Range Interpretation [...] code = 31A) <7 IU/L 10-49 L [id number] 15:48:00* Test Item Value Reference Range Interpretation [...] to interpret this result as normal/abnormal. 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 Old healed fractures of the distal tibia and fibular noted.Soft tissues: Unremarkable.IMPRESSION: No acute findings.Electronically signed by: Nikko Santiago MD 11/04/2022 3:10 PM CDT [id number] BEDSIDE [id number] 11:51:00* Test Item Value Reference Range Interpretation Comme nts GLUCOSE BEDSIDE TESTING (karen t code = GLUBED) 79 MG/DL 70-119 N GLUCOSE BEDSIDE [id number] 06:23:00* Test Item Value Reference Range Interpretation Comme nts GLUCOSE BEDSIDE TESTING (karen t code = GLUBED) 80 MG/DL 70-119 N BASIC METABOLIC [id number] 05:12:00* Test Item Value Reference Range Interpretation [...] 2.0 <2.0 indicates None DetectedPerformed At: [facility] [address] [id number] Kyle L MD Ph:[phone] GLUCOSE BEDSIDE [id number] 19:51:00* Test Item Value Reference Range Interpretation Comme nts GLUCOSE BEDSIDE TESTING (karen t code = GLUBED) 129 MG/DL 70-119 H OSMOLALITY [id number] 17:56:00* Test Item Value Reference Range Interpretation Comme nts OSMOLALITY SERUM (test code = OSMO) 269 mOsm/kg 275-300 L THYROID STIMULATING [id number] 17:56:00* Test Item Value Reference Range Interpretation Comme nts THYROID STIMULATING HORMONE (test code = TSH) 4.190 mc IU/ML 0.340-4.820 N GLUCOSE BEDSIDE [id number] 15:49:00* Test Item Value Reference Range Interpretation Comme nts GLUCOSE BEDSIDE TESTING (karen t code = GLUBED) 86 MG/DL 70-119 N CREATINE KINASE (CK)2022-09-18 14:33:00* Test Item Value Reference Range Interpretation Comme nts CREATINE KINASE (CK) (test c ode = CK) 145 Unit/L 26-192 N VALPROIC ACID (DEPAKENE)2022-09-18 14:26:00* Test Item Value Reference Range Interpretation Comme [facility] VALPROIC ACID (DEPAKENE) (te st code = VALP) 37.5 mcG/ML 50.0-100.0 L [id number] 14:26:00* Test Item Value Reference Range Interpretation Comme nts AMMONIA (test code = AMM) 29.0 mcMOL/L 11.0-32.0 N GLUCOSE BEDSIDE [id number] 11:51:00* Test Item Value Reference Range Interpretation Comme nts GLUCOSE BEDSIDE TESTING (karen t code = GLUBED) 88 MG/DL 70-119 N GLYCOSYLATED HEMOGLOBIN (HA1C)2022-09-18 06:53:00* Test Item Value Reference Range Interpretation Comme [facility] GLYCOSYLATED HEMOGLOBIN (HA1 C) (test code = GLYHGB) 5.2 % IS-A1C 4.5-5.6 N ESTIMATED AVERAGE [id number] 06:53:00* Test Item Value Reference Range Interpretation [...] to interpret this result as normal/abnormal. UR [id number] 21:28:00* Test Item Value Reference Range Interpretation Comme nts UR SODIUM RANDOM (test code = JESUSITA) 93 mmol/L 40-200 N UR POTASSIUM RANDOM (test code = KU) 54.8 mmol/L 25-125 N NO ESTABLISHED NORMAL RANGES FOR RANDOM SPECIMENS. UR CHLORIDE RANDOM (test code = CLU) 164 mmol/L 110-150 H UR OSMOLALITY [id number] 21:28:00* Test Item Value Reference Range Interpretation Comme nts UR OSMOLALITY RANDOM (test c ode = OSMOU) 475 mOsm/kg 100-1400 N CBC W/O [id number] 20:05:00* Test Item Value Reference Range Interpretation [...] = MPV) 9.5 fL 6.8-11.2 N LACTIC [id number] 19:35:00* Test Item Value Reference Range Interpretation Comme nts LACTIC ACID (test code = LACT) 1.0 mmol/L 0.4-2.0 N HCG SERUM [id number] 19:31:00* Test Item Value Reference Range Interpretation Comme nts HCG SERUM QUAL (test code = HCGQL) Negative SCREEN NEG - CT HEAD/BRAIN W/O [id number] 18:59:00 [facility] : 1975 Sex: F Patient Name: BHUMIKA JONES Unit No: [id number] EXAMS: CPT CODE: [id number] CT HEAD/BRAIN W/O CONT [id number] Location: H3 CT head, conducted on 09/17/22 at 1837 hours COMPARISON EXAMS:Head CT exam of09/17/22 at 00:06 hours TECHNIQUE: CT examination of the brain was performed without contrast on [facility]. Scanning conducted from skull base [...] the exam acquired earlier today. Electronically Sig danrell by Nati Hunt M.D. on 09/17/2022 at 1859 Reported and signed by: Nati Hunt M.D. CC: Valentina Samayoa MD Dictated Date/Time: 09/17/2022 (1858) Technologist: MALA Marie(Abner)(CT) CTDI: DLP: Trnscrpt: 09/17/2022 (1858) [email or web address] [facility] NAME: JONES [address] PHYS: Valentina [place] [id number] : 1975 AGE: 47 SEX: F LOC: [facility] 20 PHONE #: [phone] EXAM DATE: 09/17/2022 STATUS: ADM IN FAX #: [phone] RAD #: D/C DT PAGE 1 Signed Report Patient Name: SILAS JONESPCION Unit No: [id number] EXAMS: CPT CODE: [id number] CT HEAD/BRAIN W/O CONT [id number] (Continued) Orig Print D/T: S: 09/17/2022 (1902) MADELYNWiliam Lugo NAME: [address] PHYS: Valentina Mattson [place] [address] : 1975 AGE: 47 SEX: F LOC: MITCHELLED 20 PHONE #: [phone] EXAM DATE: 09/17/2022 STATUS: ADM IN FAX #: [phone] RAD #: D/C DT PAGE 2 Signed ReportURINALYSIS [id number] 16:28:00* Test Item Value Reference Range Interpretation [...] >0 /UL NONE-SQepi DRUGS OF ABUSE SCREEN [id number] 16:28:00* Test Item Value Reference Range Interpretation [...] interpret this result as normal/abnormal. TROP-I HIGH BUESKHRRMTH6574-34-22 16:26:00* Test Item Value Reference Range Interpretation [...] and URLs may vary bymethod. BASIC METABOLIC [id number] 16:25:00* Test Item Value Reference Range Interpretation [...] interpret this result as normal/abnormal. HEPATIC FUNCTION WCBEO8797-01-03 16:25:00* Test Item Value Reference Range Interpretation [...] ode = CK) 92 Unit/L 26-192 N [id number] 16:25:00* Test Item Value Reference Range Interpretation Comme nts LIPASE (test code = LIP) 57 Unit/L 114-286 L - CT HEAD/BRAIN W/O [id number] 00:32:00 [facility] CONROEName: BHUMIKA JONES : 1975 Sex: F Patient Name: BHUMIKA JONES Unit No: [id number] EXAMS: CPT CODE: [id number] CT HEAD/BRAIN W/O CONT 23801 EXAM: - CT HEAD/BRAIN W/O CONT LOCATION: [...] August CTDI: DLP: Trnscrpt: 09/17/2022 (003) [email or web address] [facility] NAME: BHUMIKA JONES [address] [place] [address] PHYS: PATCA.02 - [place], [place] [address] : 1975 AGE: 47 SEX: F LOC: GregorioERS PHONE #: [phone] EXAM DATE: 09/16/2022 STATUS: REG ER FAX #: [phone] RAD #: D/C DT PAGE1 Signed Report Patient Name: BHUMIKA JONES Unit No: [id number] EXAMS: CPT CODE: [id number] CT HEAD/BRAIN W/O CONT 71801 (Continued) Orig Print D/T: S: 09/17/2022 (0035) DENIZ Lugo NAME: BHUMIKA JONES [address] [place] [address] PHYS: YASMIN - [place], [place] [address] : 1975 AGE: 47 SEX: F LOC: MARCOS PHONE #: [phone] EXAM DATE: 09/16/2022 STATUS: REG ER FAX #: [phone] RAD #: D/C DT PAGE 2 Signed ReportTROP-I HIGH [id number] 00:13:00* Test Item Value Reference Range Interpretation [...] and URLs may vary bymethod. COMPREHENSIVE METABOLIC [id number] 00:11:00* Test Item Value Reference Range Interpretation [...] interpret this result as normal/abnormal. CBC W/AUTO [id number] 23:59:00* Test Item Value Reference Range Interpretation [...] K/mm3 0.0-0.05 N - XR CHEST 1 [id number] 23:34:00 [facility] Refugio: BHUMIKA JONES : 1975 Sex: F[place]: St: PRE -- Patient Name: BHUMIKA JONES Unit No: [id number] EXAMS: CPT CODE: [id number] XR CHEST 1 V 08817 EXAMINATION: - XR CHEST 1 V CLINICAL [...] By: NadiyaJH12 Orig Print D/T: S: 09/16/2022 (7400) DENIZ Lugo NAME: SILAS JONESPCION [address] [place] [address] Bl PHYS: PATCA.02 - Asim Jack MD, [place] [address] : 1975 AGE: 47 SEX: F LOC: B.ERS PHONE #: [phone] EXAM DATE: 09/16/2022 STATUS: PRE ER FAX #: [phone] RAD NO: DC Dt: PAGE 1 Signed ReportCARBAMAZEPINE (TEGRETOL) 2022-09-15 06:12:00* Test Item Value Reference Range Interpretation Comme nts CARBAMAZEPINE (TEGRETOL) (test code = CARB) 1.5 ug/mL 4.0-12.0 L In conjunction w ith other antiepileptic drugs Therapeutic 4.0 - 8.0 Toxicity 9.0 - 12.0 Carbamazepine alone Therapeutic 8.0 - 12.0 Detection Limit = 2.0 <2.0 indicates None DetectedPerformed At: [facility] [address] [place], [place] [id number] Michael Reeves MD Ph:[phone] VALPROIC ACID (DEPAKENE)2022-09-15 06:12:00* Test Item Value Reference Range Interpretation Comme nts VALPROIC ACID (DEPAKENE) (te st code = VALP) 80.6 mcG/ML 50.0-100.0 N COMPREHENSIVE METABOLIC [id number] 06:00:00* Test Item Value Reference Range Interpretation [...] interpret this result as normal/abnormal. CBC W/AUTO [id number] 05:37:00* Test Item Value Reference Range Interpretation [...] NRBC#) 0.00 K/mm3 0.0-0.05 N GLUCOSE BEDSIDE [id number] 20:03:00* Test Item Value Reference Range Interpretation Comme nts GLUCOSE BEDSIDE TESTING (karen t code = GLUBED) 117 MG/DL 70-119 N DRUGS OF ABUSE SCREEN [id number] 11:42:00* Test Item Value Reference Range Interpretation [...] result as normal/abnormal. - CT HEAD/BRAIN W/O [id number] 11:37:00 [facility] CON[facility]EN[facility]: BHUMIKA JONES : 1975 Sex: F Patient Name: BHUMIKA JONES Unit No: [id number] EXAMS: CPT CODE: [id number] CT HEAD/BRAIN W/O CONT 47551 EXAMINATION: - CT HEAD/BRAIN W/O CONT COMPARISON: None HISTORY: Seizure LOCATION CODE: [id number]: CT of the Brain without contrast. Axial [...] MD; Jim Jaimes MD Dictated Date/Time: 09/14/2022 (4267) Technologist: ASUNCION CASTELLANO CTDI: DLP: Trnscrpt: 09/14/2022 (8175) [email or web address] DENIZ Lugo NAME: BHUMIKA JONES [facility] PHYS: Vladimir Menchaca MD [address] [place] [address] : 1975 AGE: 47 SEX: F [place] [address] LOC: NEHA 10 PHONE #: [phone] EXAM DATE: 09/14/2022 STATUS: ADM IN FAX #: [phone] RAD #: D/C DT PAGE 1 Signed Report Patient Name: BHUMIKA OJNES Unit No: [id number] EXAMS: CPT CODE: [id number] CT HEAD/BRAIN W/O CONT 12488 (Continued) Orig Print D/T: S: 09/14/2022 (1140) DENIZ Lugo NAME: SILAS JONESPCION [facility]ICAL IMAG[facility] PHYS: Vladimir Menchaca MD [address] [place] [address] : 1975 AGE: 47 SEX: F [place] [address] LOC: NEHA 10 PHONE #: [phone] EXAM DATE: 09/14/2022 STATUS: ADM IN FAX #: [phone] RAD #: D/C DT PAGE 2 Signed Report PT AND [id number] 06:51:00* Test Item Value Reference Range Interpretation [...] AVOIDED DUE TO POSSIBLE HEPARINCONTAMINATION HCG SERUM [id number] 06:51:00* Test Item Value Reference Range Interpretation [...] CK) 268 Unit/L 26-192 H CBC W/AUTO [id number] 03:43:00* Test Item Value Reference Range Interpretation [...] = NRBC#) 0.00 K/mm3 0.0-0.05 N URINALYSIS [id number] 03:41:00* Test Item Value Reference Range Interpretation [...] RARE /LPF NONE - XR CHEST 2 [id number] 02:06:00 [facility] CON[facility]EName: BHUMIKA JONES : 1975 Sex: F FAX: Suleman Carvalho RUTH [phone] [place]: [address] St: REG Patient Name: BHUMIKA JONES Unit No: [id number] EXAMS: CPT CODE: [id number] XR CHEST 2 V 59707 EXAM: - XR CHEST 2 V HISTORY: [...] D/T: S: 09/14/2022 (020) DENIZ Lugo NAME: ROB[address] PHYS: LUDWIGAD - Deven,Suleman Lugo, [place] [address] : 1975 AGE: 47 SEX: F LOC: MARCOS PHONE #: [phone] EXAM DATE: 09/14/2022 STATUS: REG ERFAX #: [phone] RAD NO: DC Dt: PAGE 1 Signed ReportCOMPREHENSIVE METABOLIC [id number] 12:49:00* Test Item Value Reference Range Interpretation [...] used to interpret this result as normal/abnormal. [id number] 12:49:00* Test Item Value Reference Range Interpretation Comme nts MAGNESIUM (test code = MAG) 1.7 MG/DL 1.6-2.6 N CBC W/AUTO [id number] 12:36:00* Test Item Value Reference Range Interpretation [...] RARE /LPF NONE DRUGS OF ABUSE SCREEN [id number] 00:33:00* Test Item Value Reference Range Interpretation [...] 300 ng/mL UA RFLX MICR CULT IF [id number] 00:30:00* Test Item Value Reference Range Interpretation [...] culture: Suprapubic PainSpecimen Description: CLEAN CATCHBASIC METABOLIC [id number] 00:18:00* Test Item Value Reference Range Interpretation [...] 8.9 mg/dl 8.0-10.5 N HEPATIC FUNCTION PANEL [id number] 00:18:00* Test Item Value Reference Range Interpretation [...] ALKP) 113 Units/L 50.0-136.0 N HCG SERUM [id number] 00:18:00* Test Item Value Reference Range Interpretation Comme nts HCG SERUM QUAL (test code = HCGQL) NEGATIVE NEGATIVE [id number] 00:18:00* Test Item Value Reference Range Interpretation Comme nts ALCOHOL (test code = ALC) 0.00 gm/dL 0.00-0.00 N ETHYL ALCOHOL MIRELLA HARRELL - INTERPRETATION: 0.050 GM/DL - NOT INTOXICATED 0.100 GM/DL - INTOXICATED 0.350-0.450 GM/DL - SEVERELY INTOXICATED 0.550 GM/DL- FATAL INTOXICATION Coronavirus 2018 nCoV Uabtkef2137-87-77 00:09:00* Test Item Value Reference Range Interpretation Comme nts Coronavirus 2019 nCoV Bedside (test code = PPPQH11DPKOF) Negative NEGATIVE Negative results should be treated as presumptive and ifinconsistent with clinical signs and symptoms, or necessaryfor patient management, should be tested with an alternativemolecular assay. Negative results do not preclude QAZU-LvO-0enilxrmri and should not be used as the sole basis forpatient management decisions. Negative results should beconsidered in the context of a patient's recent exposures,history, presence of clinical signs and symptoms consistentwith COVID-19. CBC W/AUTO [id number] 23:58:00* Test Item Value Reference Range Interpretation [...] X10 3uL 0.00-0.01 N COMP. METABOLIC PANEL (52895)2022-09-07 02:12:41* Test Item Value Reference Range Interpretation Comme nts NA (test code = 5646114247) 133 mmol/L 135-145 L K (test code = 1199021232) 4.4 mmol/L 3.5-5.0 CL (test code = 0793935682) 102 mmol/L 98-108 CO2 TOTAL (test code = 5391057849) 25 mmol/L 23-31 AGAP (test code = 7689435207) 6 2-16 BUN (test code = 5178876045) 22 mg/dL 7-23 GLUCOSE (test code = 2965137349) 97 mg/dL 70-110 CREATININE (test code = 0794348420) 0.40 mg/dL 0.50-1.04 L TOTAL BILI (test code = 1952484287) 0.3 mg/dL 0.1-1.1 CALCIUM (test code = 9077393341) 8.9 mg/dL 8.6-10.6 T PROTEIN (test code = 0664982356) 7.7 g/dL 6.3-8.2 ALBUMIN (test code = 5528761608) 4.0 g/dL 3.5-5.0 ALK PHOS (test code = 8580093471) 104 U/L 34-122 ALTv (test code = 1742-6) 15 U/L 5-35 AST(SGOT) (test code = 9335467230) 22 U/L 13-40 eGFR (test code = 4699931058) 170.4 mL/min/1.73m2 HANNAH (test code = HANNAH) [...] imaging tests). Lab Interpretation (test code = 50578-9) Abnormal [facility] WITH [id number] 02:01:20* Test Item Value Reference Range Interpretation Comme nts WBC (test code = 6690-2) 6.17 See_Comment [Automated [employer]] The system which generated this result transmitted reference range: 4.30 - 11.10 10*3/?L. The reference range was not used to interpret this result as normal/abnormal. RBC (test code = 789-8) 3.73 See_Comment L [Automated [employer]] The system which generated this result transmitted [...] 32.9 g/dL 31.6-35.1 RDW-SD (test code = 76572-8) 48.1 fL 39.0-49.9 RDW-CV (test code = 788-0) 14.7 % 12.0-15.5 PLT (test code = 777-3) 272 See_Comment [Automated [employer] ge] The system which generated this result transmitted reference range: 166 - 358 10*3/?L. The reference range was not used to interpret this result as normal/abnormal. MPV (test code = 89381-8) 9.6 fL 9.5-12.9 NRBC/100 WBC (test code = 5681364851) 0.0 See_Comment [Automated K[employer]end ssage] The system which generated this result transmitted reference range: 0.0 - 10.0 /100 WBCs. The reference range was not used to interpret this result as normal/abnormal. NRBC x10^3 (test code = 9958794909) See_Comment [Automated [employer]] The system which generated this result transmitted reference range: 10*3/?L. The reference range was not used to interpret this result as normal/abnormal. GRAN MAT (NEUT) % (test code = 770-8) 42.2 % IMM GRAN % (test code = 1169335337) 0.20 % LYMPH % (test code = 736-9) 38.2 % MONO % (test code = 5905-5) 12.6 % EOS % (test code = 713-8) 5.8 % BASO % (test code = 706-2) 1.0 % GRAN MAT x10^3(ANC) (test code = 3388373823) 2.60 10*3/uL 1.88-7.09 IMM GRAN x10^3 (test code = 8260517110) 0.00-0.06 LYMPH x10^3 (test code = 731-0) 2.36 10*3/uL 1.32-3.29 MONO x10^3 (test code = 742-7) 0.78 10*3/uL 0.33-0.92 EOS x10^3 (test code = 711-2) 0.36 10*3/uL 0.03-0.39 BASO x10^3 (test code = 704-7) 0.06 10*3/uL 0.01-0.07 Lab Interpretation (test code = 82113-2) [facility]normal [facility] by RT-PCR (HIGH RISK) 2020-08-19 00:00:00* Test Item Value Reference Range Interpretation Comme nts SARS-CoV-2 INTERPRETATION (t est code = 74871) NEGATIVE SOURCE (test code = 25738) NOT SPECIFIED Henry Quiles OfcfveQKQZ-AkZ-6 (COVID-19) by RT-PCR (HIGH RISK)2020-08-19 00:00:00* Test Item Value Reference Range Interpretation Comme nts SARS-CoV-2 INTERPRETATION (t est code = 24753) NEGATIVE SOURCE (test code = 31965) NOT SPECIFIED Henry F ArgdtzTVPK-NmX-9 (COVID-19) by RT-PCR (HIGH RISK)2020-08-19 00:00:00* Test Item Value Reference Range Interpretation Comme nts SARS-CoV-2 INTERPRETATION (t est code = 87970) NEGATIVE SOURCE (test code = 30103) NOT SPECIFIED Henry Quiles AustinHPV HIGH RISK WITH GENOTYPE, [id number] 00:00:00* Test Item Value Reference Range Interpretation Comme [facility] HPV HIGH RISK INTERP (test c ode = 93128) NEGATIVE HPV 16 (test code = 25186) NEGATIVE HPV 18 (test code = 14027) NEGATIVE HPV, HR, OTHER GENOTYPES (te st code = 78468) NEGATIVE Henry F AustinPAP TEST, THINPREP, [id number] 00:00:00* Test Item Value Reference Range Interpretation Comme nts SOURCE: (test code = 8001) Cervical/Endocervical SLIDES: (test code = 8011) 1 LMP: (test code = 8021) 06/2017 SPECIMEN ADEQUACY: (test code = 03703) (NOTE) INTERPRETATION: (test code = 33052) NILM/NO EPITH. ABNORMALITY;SEE BELOW WARNING COORDINATION METEOROLOGIST: (test code = 8101) [place], CT(ASCP) IAC LOCATION: (test code = 37659) (NOTE) CPT: (test code = 8140) (NOTE) Henry Quiles AustinHPV HIGH RISK WITH GENOTYPE, [id number] 00:00:00* Test Item Value Reference Range Interpretation Comme nts HPV HIGH RISK INTERP (test c ode = 61945) NEGATIVE HPV 16 (test code = 45448) NEGATIVE HPV 18 (test code = 19701) NEGATIVE HPV, HR, OTHER GENOTYPES (te st code = 12354) NEGATIVE Henry ContrerasPAP TEST, THINPREP, [id number] 00:00:00* Test Item Value Reference Range Interpretation Comme nts SOURCE: (test code = 8001) Cervical/Endocervical SLIDES: (test code = 8011) 1 LMP: (test code = 8021) 06/2017 SPECIMEN ADEQUACY: (test code = 37690) (NOTE) INTERPRETATION: (test code = 69476) NILM/NO EPITH. ABNORMALITY;SEE BELOW WARNING COORDINATION METEOROLOGIST: (test code = 8101) [facility] IAC LOCATION: (test code = 07832) (NOTE) CPT: (test code = 8140) (NOTE) Henry ContrerasHPV HIGH RISK WITH GENOTYPE, [id number] 00:00:00* Test Item Value Reference Range Interpretation Comme nts HPV HIGH RISK INTERP (test c ode = 04923) NEGATIVE HPV 16 (test code = 59902) NEGATIVE HPV 18 (test code = 35541) NEGATIVE HPV, HR, OTHER GENOTYPES (te st code = 00682) NEGATIVE Henry ContrerasPAP TEST, THINPREP, [id number] 00:00:00* Test Item Value Reference Range Interpretation Comme nts SOURCE: (test code = 8001) Cervical/Endocervical SLIDES: (test code = 8011) 1 LMP: (test code = 8021) 06/2017 SPECIMEN ADEQUACY: (test code = 89805) (NOTE) INTERPRETATION: (test code = 10592) NILM/NO EPITH. ABNORMALITY;SEE BELOW WARNING COORDINATION METEOROLOGIST: (test code = 8101) [facility]) IAC LOCATION: (test code = 19524) (NOTE) CPT: (test code = 8140) (NOTE) Henry ContrerasCT HEAD WO CJXRQIME0873-54-26 22:34:12Impression: 1. ?No acute intracranial process. 2. [...] he patient. Please correlate with history and physicalexamination.[facility] Hospital[facility] CERVICAL SPINE 2 [id number] 22:29:40No acute osseous abnormality. Preliminary Report Dictated [...] reviewed this study and agree with theabove report.[facility] HospitalCB WITH BNOMOTYAQGIG1282-85-83 21:46:00* Test Item Value Reference Range Interpretation [...] 32.2 g/dL 31.6-35.1 RDW-SD (test code = 88991-3) 45.1 fL 39-49.9 RDW-CV (test code = 788-0) 14.6 % 12-15.5 PLT (test code = 777-3) See_Comment L [Automated messa ge] The system which generated this result transmitted reference range: 166 - 358 10*3/?L. The reference range was not used to interpret this result as normal/abnormal. MPV (test code = 99075-6) 9.0 fL 9.5-12.9 L NRBC/100 WBC (test code = 0656447588) See_Comment [Automated me ssage] The system which generated this result transmitted reference range: 0.0 - 10.0 /100 WBCs. The reference range was not used to interpret this result as normal/abnormal. NRBC x10^3 (test code = 8544255195) <0.01 See_Comment [Automated messa ge] The system which generated this result transmitted reference range: 10*3/?L. The reference range was not used to interpret this result as normal/abnormal. GRAN MAT (NEUT) % (test code = 770-8) 51.3 % IMM GRAN % (test code = 4676975626) 0.40 % LYMPH % (test code = 736-9) 24.4 % MONO % (test code = 5905-5) 23.1 % EOS % (test code = 713-8) 0.4 % BASO % (test code = 706-2) 0.4 % GRAN MAT x10^3(ANC) (test code = 4047882690) 2.48 10*3/uL 1.88-7.09 IMM GRAN x10^3 (test code = 8391067971) <0.03 0-0.06 LYMPH x10^3 (test code = 731-0) 1.18 10*3/uL 1.32-3.29 L MONO x10^3 (test code = 742-7) 1.12 10*3/uL 0.33-0.92 H EOS x10^3 (test code = 711-2) <0.03 0.03-0.39 L BASO x10^3 (test code = 704-7) <0.03 0.01-0.07 Lab Interpretation (test code = 52987-6) Abnormal [facility] C[facility] 2 [id number] 03:28:03No acute osseous abnormality. Preliminary Report Dictated [...] this study and agree withthe above report. [facility] HospitalValproic Acid Jfmdw2416-70-01 08:03:22* Test Item Value Reference Range Interpretation Comme nts Valproic Acid Level (test co de = Valproic Acid Level) 57.6 ug/mL(g) 50.0-100.0 Hemoglobin [id number] 09:36:00* Test Item Value Reference Range Interpretation Comme nts Hemoglobin A1c (test code = Hemoglobin A1c) 5.0 % 4.8-5.9 Non Diabetic 4.8-5.9%Diabetic <7.0% CT Shoulder w/o Contrast Ywbi6043-47-91 16:49:13Patient: BHUMIKA JONES Date/Time01/09/2019 16:14 CDTReason for [...] Adam FSigned (Electronic Signature): 01/09/2019 4:49 pmRPR Yvclgtojhxd6099-85-25 21:33:20* Test Item Value Reference Range Interpretation [...] 04-23-2020 N XR Shoulder Complete 2+ Views Oznq9114-55-52 15:41:25Patient: BHUMIKA JONES Date/Time01/07/2019 15:25 CDTReason for [...] CSigned (Electronic Signature): 01/07/2019 3:41 pmThyroid Stimulating Wengsmn5486-72-78 03:07:04* Test Item Value Reference Range Interpretation Comme nts TSH (test code = TSH) 9.650 mIU/mL 0.270-4.200 H Lipid Xyxgt4515-98-24 03:07:03* Test Item Value Reference Range Interpretation Comme nts Cholesterol Total (test code = Cholesterol Total) 199 mg/dL 0-200 RISK OF HEART DISEASEPublished by [place] Heart Association Analyte Optimal Borderline Increased RiskCHOL [...] is LDL/HDL Ratio=LDL Calc/HDL Chol HCG Qualitative Mmgcz2308-49-67 02:33:13* Test Item Value Reference Range Interpretation Comme [facility] HCG, Serum Qual (test code = HCG, Serum Qual) Negative Lot # (test code = Lot #) [id number] N Expiration Dt (test code = Expiration Dt) 2020-04-23 N Neg Control (test code = Neg Control) Negative Pos Control (test code = Pos Control) Positive Internal QC (test code = Int ernal QC) Acceptable Drugs of Abuse Urine [id number] 18:58:11* Test Item Value Reference Range Interpretation [...] = Cannabinoid Screen Ur) Negative Negative Alcohol Tctfc2084-95-98 18:47:34* Test Item Value Reference Range Interpretation Comme nts Ethanol Level (test code = Ethanol Level) <0.00 g/dL 0.00-0.01 Intoxicated 0.08 0 g/dL or more Ethanol Inst (test code = Ethanol Inst) <0 N Comprehensive Metabolic Sujiz0550-73-38 18:47:33* Test Item Value Reference Range Interpretation [...] A/G Ratio) 1.0 ratio N Comprehensive Metabolic Tgxkx0177-35-21 18:47:33* Test Item Value Reference Range Interpretation [...] is not provided, and the patient is -[place], multiply by 1.212. If sex is not [...] the National Kidney Foundation, http://nkdep.nih.gov Comprehensive Metabolic Ekita4243-67-29 18:47:33* Test Item Value Reference Range Interpretation [...] is not provided, and the patient is -[place], multiply by 1.212. If sex is not [...] is not provided, and the patient is -[place], multiply by 1.212. If sex is not [...] Kidney Foundation, http://nkdep.nih.gov Complete Blood Count with Fdggwllrpjox7367-60-55 18:15:23* Test Item Value Reference Range Interpretation [...] code = IPF) 0 % N Automated Pfqgamgpjzny0520-66-79 18:15:23* Test Item Value Reference Range Interpretation Comme nts Neutro Auto (test code = Sunny tro Auto) 42.1 % 36.0-70.0 Lymph Auto (test code = Lymph Auto) 40.0 % 12.0-44.0 [place] Auto (test code = [place] Auto) 12.2 % 0.0-11.0 H Eos, Auto (test code = Eos, Auto) 4.9 % 0.0-7.0 Basophil Auto (test code = B asophil Auto) 0.6 % 0.0-2.0 Neutro Absolute (test code = Neutro Absolute) 2.2 x10 1.6-7.4 Lymph Absolute (test code = Lymph Absolute) 2.06 x10 .50-4.60 [place] Absolute (test code = M richa Absolute) .63 x10 .00-1.20 Eos Absolute (test code = Eo s Absolute) 0.25 x10 0.00-0.74 Baso Absolute (test code = B aso Absolute) 0.03 x10 0.00-0.21 IG Tigpx1171-24-75 18:15:23* Test Item Value Reference Range Interpretation Comme nts IG (test code = IG) 0.2 % 0.0-5.0 IG Abs (test code = IG Abs) 0 x10 N VALPROIC [id number] 00:00:00* Test Item Value Reference Range Interpretation Comme nts VALPROIC ACID (test code = 3025) 69.8 UG/ML Henry Quiles AustinVALPROIC QCBO7578-09-53 00:00:00* Test Item Value Reference Range Interpretation Comme nts VALPROIC ACID (test code = 3025) 69.8 UG/ML Henry Quiles AustinVALPROIC LZTR7570-59-97 00:00:00* Test Item Value Reference Range Interpretation Comme nts VALPROIC ACID (test code = 3025) 69.8 UG/ML Henry Quiles AustinURINE CULTURE, NO [id number] 00:00:00* Test Item Value Reference Range Interpretation Comme nts URINE CULTURE, NO SENS (test code = 86718) SPECIMEN NUMBER: [id number] Henry Quiles AustinURINE CULTURE, NO [id number] 00:00:00* Test Item Value Reference Range Interpretation Comme nts URINE CULTURE, NO SENS (test code = 57201) SPECIMEN NUMBER: [id number] Henry Quiles AustinURINE CULTURE, NO [id number] 00:00:00* Test Item Value Reference Range Interpretation Comme nts URINE CULTURE, NO SENS (test code = 74683) SPECIMEN NUMBER: [id number] Henry Quiles AustinIRON BINDING CAPACITY AND IRON AND % QQQSGRSDAZ2035-91-65 00:00:00* Test Item Value Reference Range Interpretation Comme nts IRON, SERUM (test code = 2) 42 UG/DL UNSATURATED IBC (test code = 99185) 279 UG/DL CALC TOTAL IBC (test code = 7) 321 UG/DL CALC % IRON SAT (test code = 9) 13 % Henry Quiles MpmcjdYFSXPVDQ6008-64-54 00:00:00* Test Item Value Reference Range Interpretation Comme nts FERRITIN (test code = 2075) 15 NG/ML Henry Quiles YkgeryQZFRKQVHJQI9500-56-15 00:00:00* Test Item Value Reference Range Interpretation Comme nts TRANSFERRIN (test code = 4936) 269 MG/DL Henry Quiles AustinFOLIC XDAH7818-26-01 00:00:00* Test Item Value Reference Range Interpretation Comme nts FOLIC ACID (test code = 2695) 5.4 UG/L eHnry Quiles AustinIRON BINDING CAPACITY AND IRON AND % HWLKZMKGTF7065-47-37 00:00:00* Test Item Value Reference Range Interpretation Comme nts IRON, SERUM (test code = 2) 42 UG/DL UNSATURATED IBC (test code = 80350) 279 UG/DL CALC TOTAL IBC (test code = 7) 321 UG/DL CALC % IRON SAT (test code = 9) 13 % Henry F [id number] 00:00:00* Test Item Value Reference Range Interpretation Comme nts FERRITIN (test code = 2075) 15 NG/ML Henry Quiles [id number] 00:00:00* Test Item Value Reference Range Interpretation Comme nts TRANSFERRIN (test code = 4936) 269 MG/DL Henry Quiles AustinFOLIC [id number] 00:00:00* Test Item Value Reference Range Interpretation Comme nts FOLIC ACID (test code = 2695) 5.4 UG/L Henry Quiles AustinIRON BINDING CAPACITY AND IRON AND % [id number] 00:00:00* Test Item Value Reference Range Interpretation Comme nts IRON, SERUM (test code = 2222) 42 UG/DL UNSATURATED IBC (test code = 94638) 279 UG/DL CALC TOTAL IBC (test code = 2077) 321 UG/DL CALC % IRON SAT (test code = 2079) 13 % Henry Quiles [id number] 00:00:00* Test Item Value Reference Range Interpretation Comme nts FERRITIN (test code = 2075) 15 NG/ML Henry Quiles [id number] 00:00:00* Test Item Value Reference Range Interpretation Comme nts TRANSFERRIN (test code = 4936) 269 MG/DL Henry Quiles AustinFOLIC [id number] 00:00:00* Test Item Value Reference Range Interpretation Comme nts FOLIC ACID (test code = 2695) 5.4 UG/L Henry Quiles AustinCULTURE, URINE [ADDED]2018-06-12 00:00:00* Test Item Value Reference Range Interpretation Comme nts CULTURE, URINE (test code = 84364) SPECIMEN NUMBER: [id number] Henry Quiles AustinCULTURE, URINE [ADDED]2018-06-12 00:00:00* Test Item Value Reference Range Interpretation Comme nts CULTURE, URINE (test code = 77268) SPECIMEN NUMBER: [id number] Henry Quiles AustinCULTURE, URINE [ADDED]2018-06-12 00:00:00* Test Item Value Reference Range Interpretation Comme nts CULTURE, URINE (test code = 20265) SPECIMEN NUMBER: [id number] Henry Quiles AustinCBC W/AUTO [id number] 00:00:00* Test Item Value Reference Range Interpretation [...] = 1015) 184 K/UL Henry ContrerasCOMPREHENSIVE METABOLIC [id number] 00:00:00* Test Item Value Reference Range Interpretation Comme nts GLUCOSE (test code = 2217) 86 MG/DL BUN (test code = 2208) 16 MG/DL CREATININE (test code = 2214) 0.45 MG/DL eGFR AMER. (test cod e = 01989) 141 ML/MIN/1.73 eGFR NON- AMER. (test code = 94882) 122 ML/MIN/1.73 CALC BUN/CREAT (test code = [...] code = 2219) 17 U/L Henry ContrerasVALPROIC [id number] 00:00:00* Test Item Value Reference Range Interpretation Comme nts VALPROIC ACID (test code = 3025) 100.9 UG/ML Henry ContrerasCBC W/AUTO [id number] 00:00:00* Test Item Value Reference Range Interpretation [...] = 1015) 184 K/UL Henry ContrerasCOMPREHENSIVE METABOLIC [id number] 00:00:00* Test Item Value Reference Range Interpretation Comme nts GLUCOSE (test code = 2217) 86 MG/DL BUN (test code = 2208) 16 MG/DL CREATININE (test code = 2214) 0.45 MG/DL eGFR AMER. (test cod e = 55751) 141 ML/MIN/1.73 eGFR NON- AMER. (test code = 16075) 122 ML/MIN/1.73 CALC BUN/CREAT (test code = [...] code = 2219) 17 U/L Henry ContrerasVALPROIC [id number] 00:00:00* Test Item Value Reference Range Interpretation Comme nts VALPROIC ACID (test code = 3025) 100.9 UG/ML Henry ContrerasCBC W/AUTO [id number] 00:00:00* Test Item Value Reference Range Interpretation [...] = 1015) 184 K/UL Henry ContrerasCOMPREHENSIVE METABOLIC [id number] 00:00:00* Test Item Value Reference Range Interpretation Comme nts GLUCOSE (test code = 2217) 86 MG/DL BUN (test code = 2208) 16 MG/DL CREATININE (test code = 2214) 0.45 MG/DL eGFR AMER. (test cod e = 17513) 141 ML/MIN/1.73 eGFR NON- AMER. (test code = 17385) 122 ML/MIN/1.73 CALC BUN/CREAT (test code = [...] code = 2219) 17 U/L Henry Quiles AustinVALPROIC [id number] 00:00:00* Test Item Value Reference Range Interpretation Comme nts VALPROIC ACID (test code = 3025) 100.9 UG/ML Henry ContrerasPAP TEST, THINPREP, [id number] 00:00:00* Test Item Value Reference Range Interpretation Comme nts SOURCE: (test code = 8001) Cervical/Endocervical SLIDES: (test code = 8011) 1 LMP: (test code = 8021) 03/2017 SPECIMEN ADEQUACY: (test code = 36106) (NOTE) INTERPRETATION: (test code = 36257) NO EPITHELIAL ABNORMALITY SEE BELOW WARNING COORDINATION METEOROLOGIST: (test code = 8101) KANA Merida(ASCP)IAC LOCATION: (test code = 26080) (NOTE) CPT: (test code = 8140) (NOTE) Henry ContrerasHPV HIGH RISK WITH GENOTYPE, [id number] 00:00:00* Test Item Value Reference Range Interpretation Comme nts HPV HIGH RISK INTERP (test c ode = 46057) NEGATIVE HPV 16 (test code = 14889) NEGATIVE HPV 18 (test code = 43970) NEGATIVE HPV, HR, OTHER GENOTYPES (te st code = 86282) NEGATIVE Henry ContrerasPAP TEST, THINPREP, [id number] 00:00:00* Test Item Value Reference Range Interpretation Comme nts SOURCE: (test code = 8001) Cervical/Endocervical SLIDES: (test code = 8011) 1 LMP: (test code = 8021) 03/2017 SPECIMEN ADEQUACY: (test code = 29119) (NOTE) INTERPRETATION: (test code = 48753) NO EPITHELIAL ABNORMALITY SEE BELOW WARNING COORDINATION METEOROLOGIST: (test code = 8101) KANA Merida(ASCP)IAC LOCATION: (test code = 09560) (NOTE) CPT: (test code = 8140) (NOTE) Henry Quiles AustinHPV HIGH RISK WITH GENOTYPE, [id number] 00:00:00* Test Item Value Reference Range Interpretation Comme nts HPV HIGH RISK INTERP (test c ode = 54169) NEGATIVE HPV 16 (test code = 15110) NEGATIVE HPV 18 (test code = 55535) NEGATIVE HPV, HR, OTHER GENOTYPES (te st code = 95013) NEGATIVE Henry ContrerasPAP TEST, THINPREP, [id number] 00:00:00* Test Item Value Reference Range Interpretation Comme nts SOURCE: (test code = 8001) Cervical/Endocervical SLIDES: (test code = 8011) 1 LMP: (test code = 8021) 03/2017 SPECIMEN ADEQUACY: (test code = 77467) (NOTE) INTERPRETATION: (test code = 65203) NO EPITHELIAL ABNORMALITY SEE BELOW WARNING COORDINATION METEOROLOGIST: (test code = 8101) KANA Merida(ASCP)IAC LOCATION: (test code = 00715) (NOTE) CPT: (test code = 8140) (NOTE) Henry ContrerasHPV HIGH RISK WITH GENOTYPE, [id number] 00:00:00* Test Item Value Reference Range Interpretation Comme nts HPV HIGH RISK INTERP (test c ode = 02310) NEGATIVE HPV 16 (test code = 47546) NEGATIVE HPV 18 (test code = 12790) NEGATIVE HPV, HR, OTHER GENOTYPES (te st code = 48278) NEGATIVE Henry ContrerasHIV AB/AG COMBO RFLX [id number] 00:00:00* Test Item Value Reference Range Interpretation Comme nts HIV 1/2 4TH GEN, RFLX CONF ( test code = 3514) NON-REACTIVE Henry Quiles AustinGC AND CHLAMYDIA AMPLIFIED, [id number] 00:00:00* Test Item Value Reference Range Interpretation Comme nts GONORRHEA, TMA (test code = 96557) NEGATIVE CHLAMYDIA, TMA (test code = 98477) NEGATIVE Henry Quiles AustinGC AND CHLAMYDIA AMPLIFIED, [id number] 00:00:00* Test Item Value Reference Range Interpretation Comme nts GONORRHEA, TMA (test code = 10922) NEGATIVE CHLAMYDIA, TMA (test code = 08311) NEGATIVE Henry ContrerasHIV AB/AG COMBO RFLX [id number] 00:00:00* Test Item Value Reference Range Interpretation Comme nts HIV 1/2 4TH GEN, RFLX CONF ( test code = 3514) NON-REACTIVE Henry ContrerasGC AND CHLAMYDIA AMPLIFIED, [id number] 00:00:00* Test Item Value Reference Range Interpretation Comme nts GONORRHEA, TMA (test code = 29397) NEGATIVE CHLAMYDIA, TMA (test code = 39027) NEGATIVE Henry Quiles AustinHIV AB/AG COMBO RFLX [id number] 00:00:00* Test Item Value Reference Range Interpretation Comme nts HIV 1/2 4TH GEN, RFLX CONF ( test code = 3514) NON-REACTIVE Henry ContrerasLIPID [id number] 00:00:00* Test Item Value Reference Range Interpretation Comme nts CHOLESTEROL (test code = 2210) 186 MG/DL TRIGLYCERIDES (test code = 2232) 131 MG/DL HDL CHOLESTEROL (test code = 2220) 67 MG/DL CALC LDL CHOL (test code = 2237) 93 MG/DL RISK RATIO LDL/HDL (test cod e = 2238) 1.39 RATIO Henry ContrerasCBC W/AUTO [id number] 00:00:00* Test Item Value Reference Range Interpretation [...] code = 1015) 152 K/UL Henry ContrerasHEMOGLOBIN [id number] 00:00:00* Test Item Value Reference Range Interpretation Comme shaina HEMOGLOBIN A1c (test code = 04926) 5.2 % Henry [id number] 00:00:00* Test Item Value Reference Range Interpretation Comme nts TSH (test code = 2821) 2.020 UIU/ML Henry ContrerasCOMPREHENSIVE METABOLIC [id number] 00:00:00* Test Item Value Reference Range Interpretation Comme nts GLUCOSE (test code = 2217) 90 MG/DL BUN (test code = 2208) 21 MG/DL CREATININE (test code = 2214) 0.42 MG/DL eGFR AMER. (test cod e = 60382) 145 ML/MIN/1.73 eGFR NON- AMER. (test code = 62769) 126 ML/MIN/1.73 CALC BUN/CREAT (test code = [...] code = 2219) <5 U/L Henry ContrerasLIPID [id number] 00:00:00* Test Item Value Reference Range Interpretation Comme nts CHOLESTEROL (test code = 2210) 186 MG/DL TRIGLYCERIDES (test code = 2232) 131 MG/DL HDL CHOLESTEROL (test code = 2220) 67 MG/DL CALC LDL CHOL (test code = 2237) 93 MG/DL RISK RATIO LDL/HDL (test cod e = 2238) 1.39 RATIO Henry ContrerasCBC W/AUTO [id number] 00:00:00* Test Item Value Reference Range Interpretation [...] code = 1015) 152 K/UL Henry ContrerasHEMOGLOBIN [id number] 00:00:00* Test Item Value Reference Range Interpretation Comme nts HEMOGLOBIN A1c (test code = 71268) 5.2 % Henry Quiles [id number] 00:00:00* Test Item Value Reference Range Interpretation Comme nts TSH (test code = 2821) 2.020 UIU/ML Henry ContrerasCOMPREHENSIVE METABOLIC [id number] 00:00:00* Test Item Value Reference Range Interpretation Comme nts GLUCOSE (test code = 2217) 90 MG/DL BUN (test code = 2208) 21 MG/DL CREATININE (test code = 2214) 0.42 MG/DL eGFR AMER. (test cod e = 07442) 145 ML/MIN/1.73 eGFR NON- AMER. (test code = 84290) 126 ML/MIN/1.73 CALC BUN/CREAT (test code = [...] code = 2219) <5 U/L Henry ContrerasLIPID [id number] 00:00:00* Test Item Value Reference Range Interpretation Comme nts CHOLESTEROL (test code = 2210) 186 MG/DL TRIGLYCERIDES (test code = 2232) 131 MG/DL HDL CHOLESTEROL (test code = 2220) 67 MG/DL CALC LDL CHOL (test code = 2237) 93 MG/DL RISK RATIO LDL/HDL (test cod e = 2238) 1.39 RATIO Henry ContrerasCBC W/AUTO [id number] 00:00:00* Test Item Value Reference Range Interpretation [...] code = 1015) 152 K/UL Henry ContrerasHEMOGLOBIN [id number] 00:00:00* Test Item Value Reference Range Interpretation Comme shaina HEMOGLOBIN A1c (test code = 10129) 5.2 % Henry [id number] 00:00:00* Test Item Value Reference Range Interpretation Comme nts TSH (test code = 2821) 2.020 UIU/ML Henry ContrerasCOMPREHENSIVE METABOLIC [id number] 00:00:00* Test Item Value Reference Range Interpretation Comme nts GLUCOSE (test code = 2217) 90 MG/DL BUN (test code = 2208) 21 MG/DL CREATININE (test code = 2214) 0.42 MG/DL eGFR AMER. (test cod e = 42307) 145 ML/MIN/1.73 eGFR NON- AMER. (test code = 35580) 126 ML/MIN/1.73 CALC BUN/CREAT (test code = [...] Notes Date/Time Note Provider Source Henry Contreras [facility]2024-06-04 04:23:47 PATIENT OPEN ORDERS Code System Description Frequency Occurrences Priority [place] [address]-0 [facility] EKG study ONE TIME 0 Stat November 24, 2023 12:29:00 AM [facility] MAGALIE BRAVO [id number] on November 24, 2023 12:29:00 AM [facility] SCHEDULED PROCEDURES Code System Description Status Scheduled Date Updated By Patient scheduled procedure information is not available. [facility]2024-06-04 04:23:47 CARE mental health tech Role on Team Status Start Date End Date Update d By NO PCP Referring normal November 24, 2023 2:17:11 AM [facility] November 25, 2023 12:04:00 AM [facility] [id number] on November 24, 2023 2:17:11 AM [facility] MAGALIE BRAVO Attending normal November 24, 2023 2:17:11 AM [facility] November 25, 2023 12:04:00 AM [facility] [id number] on November 24, 2023 2:17:11 AM [facility] MAGALIE BRAVO Admitting normal November 24, 2023 2:17:11 AM [facility] November 25, 2023 12:04:00 AM [facility] [id number] on November 24, 2023 2:17:11 AM [facility] NO PCP PCP normal November 24, 2023 2:17:11 AM [facility] November 25, 2023 12:04:00 AM [facility] [id number] on November 24, 2023 2:17:11 AM [facility]2024-06-03 00:00:00 Henry Goldberg [facility]2024-06-02 19:05:13 PATIENT OPEN ORDERS Code System Description Frequency Occurrences Priority [place] [address]-9 [facility] EKG study ONE TIME 0 Stat November 24, 2023 12:29:00 AM [facility] MAGALIE BRAVO [id number] on November 24, 2023 12:29:00 AM [facility] SCHEDULED PROCEDURES Code System Description Status Scheduled Date Updated By Patient scheduled procedure information is not available. [facility]2024-06-02 19:05:13 CARE mental health tech Role on Team Status Start Date End Date Update d By NO PCP Referring normal November 24, 2023 2:17:11 AM [facility] November 25, 2023 12:04:00 AM [facility] [id number] on November 24, 2023 2:17:11 AM [facility] MAGALIE BRAVO Attending normal November 24, 2023 2:17:11 AM [facility] November 25, 2023 12:04:00 AM [facility] [id number] on November 24, 2023 2:17:11 AM [facility] MAGALIE BRAVO Admitting normal November 24, 2023 2:17:11 AM [facility] November 25, 2023 12:04:00 AM [facility] [id number] on November 24, 2023 2:17:11 AM [facility] NO PCP PCP normal November 24, 2023 2:17:11 AM [facility] November 25, 2023 12:04:00 AM [facility] [id number] on November 24, 2023 2:17:11 AM [facility]2024-06-01 21:59:[address] [address] DIAGNOSTIC IMAGING REPORT Patient Name: JONES, CONCEPTION Date of Service: 11-23-2023 Age: 48 Sex: F Order #: [id number] Room: [facility] : 1975 X-Ray Number: [id number] Hospital Number: [id number] Admitting Physician: LAWRENCE MEJIAS Ordering Physician: LAWRENCE [...] 21:59:03 Legally authenticated by ANGIE PHAM 2023-11-23 [facility] [id number] 21:53:03[place] [address] DIAGNOSTIC IMAGING REPORT Patient Name: ROBERT, CONCEPTION Date of Service: 11-23-2023 Age: 48 Sex: F Order #: [id number] Room: [facility] : 1975 X-Ray Number: [id number] Hospital Number: [id number] Admitting Physician: LAWRENCE MEJIAS Ordering Physician: LAWRENCE [...] 21:53:03ALON DEL RIO 2023-10-25 00:00:00 Henry Goldberg [facility]2024-04-10 09:45:21 We are unable to release any pt information with out prior pt permission. However, Risperdal is not generally managed by neurology and would be best managed by psychiatrist. Robyn Durham [facility]2024-04-09 16:15:28 Copied from [facility] #[id number]. Topic: Clinical - Order >> Oct 01, 2023 4:13 PM Patient Art Professor wrote: [facility] is calling regarding medication risperdal they were givng her 3mg and stating had dropped it to 1mg trying to confirm change Call [phone] Skyler VillarrealECU HealthUgzprb8335-52-44 12:29:00 [facility] ([facility]) Hospitalist Discharge Summary REPORT#:[id number] REPORT STATUS: Signed DATE:10/11/22 TIME: 1229 PATIENT: BHUMIKA JONES UNIT #: [id number] ROOM/BED: [place] [address] : [birth year] AGE: 47 SEX: F ATTEND: [...] patient this morning with the help of admissions counselor and she said that he lives with [...] refill, normal range of motion, no edema Neuro/MERCHANDISE COORDINATOR: altered mental status, alert Discharge Instructions PCP Discharge to: Home/Self Care Additional Discharge Routines: PCP Follow-Up Diet: Resume Home Diet/Feeds Activity: As Tolerated Follow-up Appointments PCP follow-up: PCP: No Primary or Family Physician PCP follow up timeframe: In 6 days at 1230 RPT #:[id number] END OF [id number] 17:27:00 [facility] ([facility]) Electroencephalogram-EEG REPORT#:[id number] REPORT STATUS: Signed DATE:09/18/22 TIME: 1726 PATIENT: BHUMIKA JONES UNIT #: [id number] ROOM/BED: [place] [address] : [birth year] AGE: 47 SEX: F ATTEND: [...] open eyes (commands were obtained using a gas plant technician) with opening the eyes the patient [...] with the patient mentioned. at 1736 RPT #:[id number] END OF [id number] 14:24:00 [facility] ([facility]) Neurology Consultation Note REPORT#:[id number] REPORT STATUS: Signed DATE:09/18/22 TIME: 1424 PATIENT: BHUMIKA JONES UNIT #: [id number] ROOM/BED: [facility] : [birth year] AGE: 47 SEX: F ATTEND: Marly Mendenhall MD ADM AUTHOR: Nelia Parker MD * ALL edits or amendments must be made on the electronic/computer document * See Addendum History of Present Illness HPI Requesting clinician: see consult order Reason for consult: "AMS" Chief complaint: wanting to go home for her family HPI: 47-year-old female Somali speaking only who was brought into the [...] and the patient was sent to a [place] [facility] [place]. Reportedly per the patient she did not like the [place] and does not like the food there [...] seizures prior to her being in the [place] [facility] [place]. Per the patient she get upset that [...] available to confirm the history and the [place] location is unknown to contact someone who [...] <10 MG 09/18 09/18 09/17 09/17 0553 7521 [id number] Chemistry Hemoglobin A1c (4.5 - 5.6 % [...] - 8.0 pH UNITS) 6.5 Ur Specific [place] (1.001 - 1.035 SG) 1.013 Urine Protein [...] the past or not. at 1652 RPT #:[id number] END OF [id number] 11:44:00 [facility] ([facility]) Hospitalist Progress Note REPORT#:[id number] REPORT STATUS: Signed DATE:09/18/22 TIME: 1144 PATIENT: BHUMIKA JONES UNIT #: [id number] ROOM/BED: [place] [address] : [birth year] AGE: 47 SEX: F ATTEND: [...] patient this morning with the help of admissions counselor and she said that he lives with [...] refill, normal range of motion, no edema Neuro/MERCHANDISE COORDINATOR: altered mental status, alert Diagnosis, Assessment Plan [...] afternoon if remains stable at 1147 RPT #:[id number] END OF [id number] 01:06:00 [facility] ([facility]) Hospitalist History Physical REPORT#:[id number] REPORT STATUS: Signed DATE:09/18/22 TIME: 105 PATIENT: BHUMIKA JONES UNIT #: [id number] ROOM/BED: [place] [address] : [birth year] AGE: 47 SEX: F ATTEND: [...] - 8.0 pH UNITS) 6.5 Ur Specific [place] (1.001 - 1.035 SG) 1.013 Urine Protein [...] rhythm Respiratory: decreased breath sounds Abdomen: soft Neuro/MERCHANDISE COORDINATOR: altered mental status, alert Diagnosis, Assessment Plan [...] management by incoming thereafter at 0110 RPT #:[id number] END OF [id number] 14:34:00 [facility] ([facility]) EMERGENCY PROVIDER REPORT REPORT#:[id number] REPORT STATUS: Signed DATE:09/17/22 TIME: 1434 PATIENT: BHUMIKA JONES UNIT #: [id number] ROOM/BED: 267-1 AGE: 47 SEX: F PCP PHYS: No Primary or Family Physician SERVICE AUTHOR: Valentina Samayoa MD * ALL edits or amendments must be made on the electronic/computer document * HPI-General Illness Free Text HPI Notes Free Text HPI Notes 47-year-old female presents after possible seizure episode at [facility], will assessment patient is not fully oriented, and cannot provide history of the events of today when asked multiple times. Additional history limited as the patient is tearful and not fully oriented. I spoke to the patient's sister Lewis Luis, phone #[phone] by phone, who reports the patient has been missing from home for 8 days. Reports when the patient is medically cleared they can come get the patient. Patient reportedly initially without medications at the [facility] PMH: Seizures, schizophrenia. General Initial Greet [...] #30 TABS Prov: 09/13/22 DC: 09/14/22 1500 data entry coordinator correction DIVALPROEX (GINA CALLES) 1,000 MG PO DAILY DIVALPROEX DR TEOFILO CALLES) 1,000 MG PO DAILY #60 TABS Prov: 09/13/22 DC: 09/14/22 1459 data entry coordinator correction Reported Medications DIVALPROEX ER (DEPAKOTE ER) [...] - 8.0 pH UNITS) 6.5 Ur Specific [place] (1.001 - 1.035 SG) 1.013 Urine Protein [...] refill, drowsy, admitted, ultimately discharged back [place] [facility] [place]] -My EKG interpretation: I directly visualized and [...] B/P 117/84 09/17 1431 B/P Mean 95 03/27 1431 O2 Delivery Room air 09/17 1431 [...] )( Accepted Date 09/17/22 at 1114 RPT #:[id number] END OF [id number] 00:19:00 [facility] ([facility]) EMERGENCY PROVIDER REPORT REPORT#:[id number] REPORT STATUS: Signed DATE:09/17/22 TIME: 0019 PATIENT: BHUMIKA JONES UNIT #: [id number] ROOM/BED: AGE: 47 SEX: F PCP PHYS: No Primary or Family Physician SERVICE AUTHOR: Asim Jack MD * ALL edits or amendments must be made on the electronic/computer document * HPI-General Illness General Initial Greet Date/Time 09/16/22 5040 Presentation Chief Complaint Anxiety, Not feeling well Free Text HPI Notes Free Text HPI Notes Patient brought in by EMS from local [facility] [place] [facility] after increasing anxiety and concern for possible seizure activity. She was recently admitted here at [facility] and worked up for possible seizures. [...] #30 TABS Prov: 09/13/22 DC: 09/14/22 1500 data entry coordinator correction DIVALPROEX DR (GINA CALLES) 1,000 MG PO DAILY DIVALPROEX DR (GINA CALLES) 1,000 MG PO DAILY #60 TABS Prov: 09/13/22 DC: 09/14/22 1459 data entry coordinator correction Reported Medications DIVALPROEX ER (DEPAKOTE ER) [...] % (Auto) (14.1 - 45.4 %) 29.6 [place] % (Auto) (2.5 - 11.7 %) 10.8 Eos % (Auto) (0.0 - 6.2 %) 2.9 Baso % (Auto) (0.0 - 2.1 %) 0.7 Gran # (2.0 - 13.7 k/mm3) 3.12 Lymph # (Auto) (0.6 - 3.8 K/mm3) 1.65 [place] # (Auto) (0.11 - 0.59 K/mm3) 0.60 [...] Report Impression - Status: SIGNED Entered: 09/16/2022 7517 IMPRESSION: No acute cardiopulmonary disease. Impression By: [...] Text MDM Notes Patient presents from local [place] [facility] with concern for possible seizure activity. I [...] for discharge. Patient urged to follow-up with [facility] in the next 2 to 3 [...] Instructions Please follow-up with [facility], [facility], and neurology. Return if any confusion, headache, stiff neck, fever, vomiting, or any other new concerns. Please take all your medications as instructed Referrals Provider Group: [facility] Follow-Up: 2-3 Days Provider Referral: Nelia Parker MD Follow-Up: 2-3 Days Address: [address] [place] [address] [address] [place] [address] Resource Referral: Savita Orona [facility] Follow-Up: 2-3 Days Address: [address] [place] [address] at 0140 RPT #:[id number] END OF [id number] 12:06:00 [facility] ([facility]) Electroencephalogram-EEG REPORT#:[id number] REPORT STATUS: Signed DATE:09/15/22 TIME: 1206 PATIENT: BHUMIKA JONES UNIT #: [id number] ROOM/BED: [address] : [birth year] AGE: 47 SEX: F [...] or electrographic seizures recorded. at 1209 RPT #:[id number] END OF [id number] 12:00:00 [facility] Hospitalist Discharge Summary REPORT#:[id number] REPORT STATUS: Signed DATE:09/15/22 TIME: 1200 PATIENT: BHUMIKA JONES UNIT #: [id number] ROOM/BED: [address] : 73 AGE: 47 SEX: [...] evaluated for possible seizure episode. She is Somali-speaking patient only in apparel embroidery digitizer was used. Patient denies to have any seizure episodes at home she just ran out of her medications and came to the hospital. Patient otherwise remains hemodynamically stable. However she is too drowsy to be discharged safely back home. I discussed the case with the patient. She wants her medications to be refilled and that she wants to go back to her [place] [facility] [place]. I discussed with her about potential seizure episodes in the future use of medications compliance with the medications and further prescriptions. She states that she would management to the [place] [facility] [place]. I have requested case management to evaluate [...] initial diagnosis and related differentials with the patient/healthcare account manager including RN. All concerns and questions are answered to the best of my abilities based on the available data.I have initiated the plan of care based on preliminary diagnosis, requested appopriate consultations with labs/imagings. Patient/healthcare account manager verbalizes understanding of the plan of care. [...] timeframe: In 1-2 weeks at 1202 RPT #:[id number] END OF [id number] 16:56:00 [facility] ([facility]) Neurology Consultation Note REPORT#:[id number] REPORT STATUS: Signed DATE:09/14/22 TIME: 1655 PATIENT: BHUMIKA JONES UNIT #: [id number] ROOM/BED: [facility] : [...] evaluated for possible seizure episode. She is Somali-speaking patient only in apparel embroidery digitizer was used. Patient denies to have any [...] (SODIUM CHLORIDE 0.9% 1000 ML) 1,000 ML .[id number] IV Trazodone HCl (DESYREL) 50 MG BEDTIME PRN PRN PO Sodium Chloride (SODIUM CHLORIDE 0.9% 1000 ML) 1,000 ML .[id number] IV Carbamazepine (TEGretol) 400 MG BID PO Divalproex Sodium (DEPAKOTE DR) 1,000 MG BID PO (DC) Acetaminophen (TYLENOL) 650 MG Q6H PRN PRN PO Ondansetron HCl (ZOFRAN) 4 MG Q4H PRN PRN IV Ceftriaxone Sodium (ROCEPHIN) 1 GM Q24H IV (CAN) Lactated Ringer's (LACTATED RINGERS) 1,000 ML .[id number] IV Ceftriaxone Sodium (ROCEPHIN) 1 GM X1ED [...] % (Auto) (14.1 - 45.4 %) 33.6 [place] % (Auto) (2.5 - 11.7 %) 13.4 H Eos % (Auto) (0.0 - 6.2 %) 7.4 H Baso % (Auto) (0.0 - 2.1 %) 0.9 Gran # (2.0 - 13.7 k/mm3) 2.61 Lymph # (Auto) (0.6 - 3.8 K/mm3) 1.96 [place] # (Auto) (0.11 - 0.59 K/mm3) 0.78 [...] - 8.0 pH UNITS) 6.0 Ur Specific [place] (1.001 - 1.035 SG) 1.032 Urine Protein [...] deferred to primary team. at 1707 RPT #:[id number] END OF [id number] 14:55:00 [facility] ([facility]) Hospitalist History Physical REPORT#:[id number] REPORT STATUS: Signed DATE:09/14/22 TIME: 1454 PATIENT: BHUMIKA JONES UNIT #: [id number] ROOM/BED: [facility] : [...] evaluated for possible seizure episode. She is Somali-speaking patient only in apparel embroidery digitizer was used. Patient denies to have any [...] % (Auto) (14.1 - 45.4 %) 33.6 [place] % (Auto) (2.5 - 11.7 %) 13.4 H Eos % (Auto) (0.0 - 6.2 %) 7.4 H Baso % (Auto) (0.0 - 2.1 %) 0.9 Gran # (2.0 - 13.7 k/mm3) 2.61 Lymph # (Auto) (0.6 - 3.8 K/mm3) 1.96 [place] # (Auto) (0.11 - 0.59 K/mm3) 0.78 [...] - 8.0 pH UNITS) 6.0 Ur Specific [place] (1.001 - 1.035 SG) 1.032 Urine Protein [...] Report Impression - Status: SIGNED Entered: 09/14/2022 0206 IMPRESSION: No radiographic evidence of acute cardiopulmonary [...] evaluated for possible seizure episode. She is Somali-speaking patient only in apparel embroidery digitizer was used. Patient denies to have any [...] initial diagnosis and related differentials with the patient/healthcare account manager including RN. All concerns and questions are answered to the best of my abilities based on the available data.I have initiated the plan of care based on preliminary diagnosis, requested appopriate consultations with labs/imagings. Patient/healthcare account manager verbalizes understanding of the plan of care. at 1501 RPT #:[id number] END OF [id number] 04:21:00 [facility] ([facility]) EMERGENCY PROVIDER REPORT REPORT#:[id number] REPORT STATUS: Signed DATE:09/14/22 TIME: 420 PATIENT: BHUMIKA JONES UNIT #: [id number] [place] [id number] AGE: 47 SEX: F PCP PHYS: No [...] told she needs to see a social work faculty member but is unsure how to arrange that. 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, Attendant Honor Bar Review of Systems ROS Statements All systems [...] % (Auto) (14.1 - 45.4 %) 33.6 [place] % (Auto) (2.5 - 11.7 %) 13.4 H Eos % (Auto) (0.0 - 6.2 %) 7.4 H Baso % (Auto) (0.0 - 2.1 %) 0.9 Gran # (2.0 - 13.7 k/mm3) 2.61 Lymph # (Auto) (0.6 - 3.8 K/mm3) 1.96 [place] # (Auto) (0.11 - 0.59 K/mm3) 0.78 [...] - 8.0 pH UNITS) 6.0 Ur Specific [place] (1.001 - 1.035 SG) 1.032 Urine Protein [...] is the patient's second visit here at [facility] in the past 24 hours. She [...] plan of care. at 0449 at 0540 [facility] #:[id number] END OF [id number] 20:34:00 [facility] ([facility]) EMERGENCY PROVIDER REPORT REPORT#:[id number] REPORT STATUS: Signed DATE:09/13/22 TIME: 2033 PATIENT: BHUMIKA JONES UNIT #: [id number] ROOM/BED: [facility]250-W AGE: 47 SEX: F PCP PHYS: No [...] (RisperDAL) 3 MG PO DAILY at 1707 [facility] #:[id number] END OF [id number] 09:58:00 [facility] ([facility]) EMERGENCY PROVIDER REPORT REPORT#:[id number] REPORT STATUS: Signed DATE:09/13/22 TIME: 957 PATIENT: BHUMIKA JONES UNIT #: [id number] ROOM/BED: AGE: 47 SEX: F PCP PHYS: [...] - 8.0 pH UNITS) 6.0 Ur Specific [place] (1.001 - 1.035 SG) 1.024 Urine Protein [...] % (Auto) (14.1 - 45.4 %) 34.0 [place] % (Auto) (2.5 - 11.7 %) 10.1 Eos % (Auto) (0.0 - 6.2 %) 2.7 Baso % (Auto) (0.0 - 2.1 %) 0.7 Gran # (2.0 - 13.7 k/mm3) 3.04 Lymph # (Auto) (0.6 - 3.8 K/mm3) 1.98 [place] # (Auto) (0.11 - 0.59 K/mm3) 0.59 Eos # (Auto) (0.0 - 0.4 K/mm3) 0.16 Baso # (Auto) (0.0 - 0.1 K/mm3) 0.04 Immature Gran % (0.0 - 2.0 %) 0.3 Nucleated RBC % (0.0 - 1.0 /100WBC%) 0.0 Nucleated RBCs # (0.0 - 0.05 K/mm3) 0.00 Point of Care Testing Pulse Oximetry Pulse Ox % 98 On: Room air Interpretation Interpreted by ms Time 0959 ECG #1 Interpretation ECG Documented [...] PO BEDTIME #[address] (DEPAKOTE ) 1,000 MG PO [...] a call to 911. at 1327 RPT #:[id number] END OF REPORTHCACR
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
== END 2024-05-27 17:00 | disposition home or self-care (01) ==
LOC: ER 16:29
DX: S00.81XA Abrasion of other part of head, initial encounter (principal)
CPT/HCPCS: 99282

== ENCOUNTER 2024-06-21 17:08 | Emergency (ER) | payer SELFPAY ==
--- OUTSIDE RECORDS SUMMARY | 2024-06-21 17:16 | XMS REPORT | Continuity of Care Document ---
Author Name Unknown Address [address] [facility] [address] [place] [address] [facility] thconnect Address [address] 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 Role Phone PCP, NO Primary Care Physician Unavailab LAWRENCE Weston Attending Clinician Unavailable ARLEN LAGUNAS Attending Clinician Unavailable JUAN MIGUEL PRICE Attending Clinician Unavailable MELVINA SHEPHERD Attending Clinician Tommy Phelan MD, Indio Perdue Attending Clinician INDIO PHELAN Attending Clinician Unavail able INDIO PHELAN Attending Clinician Unavail able Doctor Unassigned, [place] Attending Clinician U navailable Neurology Attending Clinician Unavailable DR JESS PAIGE Attending Clinician Unavailable Heri Snow MD Attending Clinician [phone] Denise MELTON, Madhavi Mota Attending Clinician Zari Marly Rodríguez Attending Clinician Unavailable Asim Jack Attending Clinician Unavailable Vladimir Forbes Attending Clinician Unavailable Brad Woodall Attending Clinician Unavaila Russel Angelo Attending Clinician Unavailermelinda Morfin MD, Lisa Schmitz Attending Clinician [phone] Sandrita Key MD Attending Clinician [phone] SANDRITA KEY Attending Clinician Unavailable TAYO BOYD Attending Clinician Unavailable Tayo Boyd MD Attending Clinician [phone] JAVED FRANK Attending Clinician Unavailable Javed Chavez Attending Clinician [phone] DEON NUNEZ Attending Clinician Unavailable Deon Nunez DO Attending Clinician [phone] Kp Dorado Attending Clinician [phone] Kp GILLILAND Attending Clinician Unavailable Kristin Howell Attending Clinician [phone] KRISTIN MILLER Attending Clinician Unavailable Floridalma Evans MD Attending Clinician [phone] FLORIDALMA EVANS Attending Clinician Unavailable Unknown, Attending Attending Clinician Unavailab LISA Kasper Attending Clinician UnavailHENRY Hall Attending Clinician Unavailable Henry Owen MD Attending Clinician [phone] DEBBIE PAYTON Attending Clinician Unavailab Debbie Hernandez DO Attending Clinician [phone] Le Ramirez NP Attending Clinician [phone] LAWRENCE MEJIAS Admitting Clinician Unavailable KAYLA ALANIZ [...] Effective Date Expirati on Date Source [facility] [id number] 1000 [id number] 2022 00:00:00 MEDICAID ALIEN PENDING PENDING 2021 [...] different from the original. 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 carbamaz epine DA Active U UNKNOWN 09-10 00:00: 00 [facility] No Known Drug Allergie s DA Active [facility] NO KNOWN ALLERGIE S Drug Class Active [facility] Social History Social Habit Start Date Stop Date Quantity Comments Source [facility] Future intention Reported [facility] Alcohol intake 2023-07-23 00:00:00 2023-07-23 00:00:00 Current non-drinker of alcohol (finding) [facility] History of Social function 2023-07-23 00:00:00 2023-07-23 00:00:00 [facility] Exposure to SARS-CoV-2 (event) 2022-09-14 00:00:00 2022-09-24 12:30:00 Not sure [facility] Tobacco use and exposure 2014-07-05 00:00:00 2014-07-05 00:00:00 Smokeless tobacco non-user [facility] Sex Assigned At 1975 00:00:00 1975 00:00:00 [facility] Smoking Status Start Date Stop Date Source [...] ML SOLN|dose: 2.0 mg|route:| frequency: ONE TIME [facility] diphenhydrA MINE INJ (Benadryl) 50 MG/ML SOLN diphenhydrA MINE INJ (Benadryl) 50 MG/ML SOLN 11-22 23:33: 00 11-22 23:33 :00 No 50mg medication :diphenhyd rAMINE INJ (Benadryl) 50 MG/ML SOLN|dose: 50.0 mg|route:| frequency: ONE TIME [facility] LORazepam INJ 2 MG/1 ML SOLN LORazepam INJ 2 MG/1 ML SOLN 11-22 23:33: 00 11-22 23:33 :00 No 2mg medication :LORazepam INJ 2 MG/1 ML SOLN|dose: 2.0 mg|route:| frequency: ONE TIME [facility] ([facility]) ziprasidone INJ 20 MG SOLR ziprasidone INJ 20 MG SOLR 11-22 20:05: 00 11-22 20:05 :00 No 10mg medication :ziprasido ne INJ 20 MG SOLR|dose: 10.0 mg|route:I NTRAMUSCUL AR|frequen cy:ONE TIME [facility] ([facility]) sterile water for injection SOLN sterile water for injection SOLN 11-22 20:05: 00 11-22 20:05 :00 No 10mL medication :sterile water for injection SOLN|dose: 10.0 mL|route:| frequency: ONE TIME [facility] ([facility]) levothyroxi ne 50 mcg tablet 10-12 00:00: 00 Yes 1mcg Henry Contreras TAKE 1 TABLET EVERY MORNING. 09-15 00:00: 00 Yes 50 Henry Contreras TAKE 1 TABLET AT BEDTIME. 09-15 00:00: 00 Yes 1 Henry Contreras TAKE 1 TABLET BY MOUTH DAILY -25 00:00: 00 Yes 2 Henry Contreras levothyroxi ne 50 mcg tablet -18 00:00: 00 Yes 1mcg Herny Contreras TAKE 1 TABLET EVERY MORNING. 2-09 [...] 1 mg tablet 07-23 00:00: 00 Yes [id number] 1mg Take 1 tablet by mouth at bedtime. [facility] TAKE 1 TABLET 3 TIMES A [...] 1 TABLET DAILY. 2022-06 00:00: 00 Yes [id number] Henry Contreras TAKE 1 TABLET EVERY 6 HOURS NEEDED FOR DIZZINESS. 2022-06 00:00: 00 11-01 00:00 :00 No 25 Henry Contreras TAKE 1 TABLET BY MOUTH DAILY 2022-06 00:00: 00 11-01 00:00 :00 No 2 Henry Contreras TAKE 1 TABLET DAILY. 03-04 00:00: 00 11-01 00:00 :00 No [id number] Henry Contreras TAKE 1-2 TABS EVERY 8 [...] tablet 09-13 00:00: 00 Yes mg Henry Contrears TAKE 1 TABLET BY MOUTH AT BEDTIME 09-13 00:00: 00 Yes Henry Contreras TAKE 2 TABLETS BY MOUTH ONCE DAILY 09-13 00:00: 00 Yes Henry Contreras levETIRAcet am (KEPPRA) in NACL (ISO-OS) 1,000 mg/100 mL RTU 09-10 02:15: 00 09-10 02:54 :00 No 1000mg 1,000 mg, IV Piggyback, ONCE, 1 dose, On 09/09/22 at 2115, Administer over 15 Minutes, 100 mL [facility] LORazepam (ATIVAN) injection 1 mg 09-10 02:15: 00 09-10 03:04 :00 No 1mg 1 mg, Slow IV Push, ONCE, 1 dose, On 09/09/22 at 2115, STAT [facility] hydrOXYzine 25 mg tablet 09-09 00:00: 00 Yes [id number] 25mg Take 1 tablet by mouth every 6 (six) hours. [facility] levETIRAcet am (KEPPRA) 500 mg tablet 09-09 00:00: 00 Yes [id number] 500mg Take 1 tablet by mouth 2 (two) times daily. [facility] acetaminoph en (TYLENOL) tablet 650 mg 09-07 00:45: 00 09-07 02:10 :00 No 650mg 650 mg, Oral, ONCE, 1 dose, On Diana 09/06/22 at 1945, [facility] TAKE 1 TABLET BY MOUTH IN THE MORNING AND 1 TABLET AT BEDTIME 2021-06 00:00: 00 Yes Henry Contreras TAKE 1 TABLET BY MOUTH IN THE MORNING AND 1 AT BEDTIME 2021-06 006 00:00: 00 Yes Henry Contreras acetaminoph en (TYLENOL) tablet 1,000 mg 10-02 22:15: 00 10-02 23:27 :00 No 1000mg 1,000 mg, Oral, ONCE, 1 dose, On Sat10/02/21 at 1715, [facility] ibuprofen (IBU) tablet 600 mg 10-02 22:15: 00 10-02 23:27 :00 No 600mg 600 mg, Oral, ONCE, 1 dose, On Sat10/02/21 at 1715, [facility] hydroxyzine HCl 25 mg tablet 2020-06 00:00: 00 Yes 1mg Henryjoseph Contreras traMADoL 50 mg tablet 2020-06 00:00: 00 Yes [id number] 50mg Take 1 tablet by mouth every 6 (six) hours as needed for Pain (scale 7-10). Indication s: acute pain [facility] naproxen sodium (ANAPROX DS) 550 mg tablet 2020-06 00:00: 00 Yes [id number] 550mg Take 1 tablet by mouth 2 (two) times daily with meals. [facility] ibuprofen 600 mg tablet 2020-06 00:00: 00 Yes 1mg Henry Contreras amoxicillin -clavulanat e 875-125 mg per tablet 08-13 00:00: 00 Yes [id number] 1{tbl} Take 1 tablet by mouth every 12 (twelve) hours. [facility] clindamycin 300 mg capsule 08-13 00:00: 08-23 05:59 :00 No [id number] 300mg Take 1 capsule by mouth 4 (four) times daily for 10 days. [facility] methocarbam ol (ROBAXIN) tablet 1,000 mg 07-23 00:30: 00 07-22 23:39 :00 No 1000mg 1,000 mg, Oral, ONCE, 1 dose, Sat07/22/19 at 1830, Routine [facility] Keflex 500 mg capsule 07-23 00:00: 00 Yes 1mg Henry Contreras Bromfed DM 2 mg-30 mg-10 mg/5 mL oral syrup 07-23 00:00: 00 Yes 5mg/5 mL Henry Contreras ketorolac (TORADOL) injection 30 mg 07-23 00:00: 07-22 23:00 :00 No 30mg 30 mg, Intramuscu lar, ONCE, 1 dose, Sat07/22/19 at 1800, Routine
food service team member approving Restricted medication : LISA MORFIN [facility] mupirocin 2 % topical ointment 07-16 00:00: 00 Yes 1% Henry Contreras Keflex 500 mg capsule 07-16 00:00: 00 Yes 1mg Henry Contreras ketorolac (TORADOL) injection 30 mg 07-14 03:30: 00 07-14 02:57 :00 No 30mg 30 mg, Intramuscu lar, ONCE, 1 dose, Sat07/13/19 at 2130, AYESHA
Fa culty member approving Restricted medication : HENRY OWEN [facility] ketorolac 10 mg tablet 07-13 00:00: 07-19 05:59 :00 No [id number] 10mg Take 1 tablet by mouth every 8 (eight) hours for 5 days. [facility] mupirocin 2 % topical ointment 07-10 00:00: 00 Yes 1% Henry Contreras ibuprofen 800 mg tablet 07-10 00:00: 00 Yes 1mg Henry Contreras Keflex 500 mg capsule 07-10 00:00: 00 Yes 1mg Henry Contreras cephALEXin (KEFLEX) 500 mg capsule 07-04 00:00: 00 Yes [id number] 500mg Take 1 capsule by mouth 4 (four) times daily. [facility] traMADol 50 mg tablet 07-04 00:00: 00 05-05 00:00 :00 No [id number] 50mg Take 1 tablet by mouth every 6 (six) hours as needed for Pain (scale 7-10). [facility] bacitracin 500 unit/gram ointment 07-04 00:00: 00 07-15 05:59 :00 No [id number] Apply to affected area(s) 2 (two) times daily for 10 days. [facility] traMADol 50 mg tablet 06-30 00:00: 00 05-05 00:00 :00 No [id number] 50mg Take 1 tablet by mouth every 6 (six) hours as needed for Pain (scale 7-10). [facility] Dose Unknown 2018-06 00:00: 00 Yes Henry Contrears Depakote 500 mg tablet,nette yed release 08-12 [...] times daily with meals. [facility] nystatin-tr iamcinolone 100,000 unit/g-0.1 % topical [...] 2 (two) times daily. [facility] Trileptal 300 mg tablet 01-30 00:00: [...] martin Body temperature 2023-11-24 19:00:00 98.1 [degF] [facility]) Diastolic blood pressure 2023-11-24 19:00:00 69 mm[Hg] [facility] [place]) Heart rate 2023-11-24 19:00:00 70 /min [facility]) Oxygen saturation in Arterial blood by Pulse oximetry 2023-11-24 19:00:00 97 /min [facility]) Respiratory rate 2023-11-24 19:00:00 16 /min [facility]) Systolic blood pressure 2023-11-24 19:00:00 127 mm[Hg] [facility] [place] Diastolic blood pressure 2023-11-23 23:30:00 78 mm[Hg] [facility]) Heart rate 2023-11-23 23:30:00 74 /min [facility]) Oxygen saturation in Arterial blood by Pulse oximetry 2023-11-23 23:30:00 97 /min [facility] [place]) Respiratory rate 2023-11-23 23:30:00 16 /min [facility]) Systolic blood pressure 2023-11-23 23:30:00 134 mm[Hg] [facility] [place] Body temperature 2023-11-23 19:30:00 98.5 [degF] [facility]) Body height 2023-07-23 20:19:00 [facility]4 [facility] Body weight 2023-07-23 20:19:00 77.837 kg [facility] BMI 2023-07-23 20:19:00 33.51 kg/m2 [facility] Height 2022-11-04 14:04:00 149.86 CM Weight 2022-11-04 14:04:00 73.02 KG Systolic blood pressure 2022-09-24 17:32:00 130 mm[Hg] [facility] Diastolic blood pressure 2022-09-24 17:32:00 85 mm[Hg] [facility] Heart rate 2022-09-24 17:32:00 64 /min [facility] Body temperature 2022-09-24 17:32:00 36.83 Oma [facility] Respiratory rate 2022-09-24 17:32:00 18 /min [facility] Body weight 2022-09-24 17:32:00 74.844 kg [facility] BMI 2022-09-24 17:32:00 33.33 kg/m2 [facility] Oxygen saturation in Arterial blood by Pulse oximetry 2022-09-24 17:32:00 99 /min [facility] Systolic blood pressure 2022-09-10 23:55:00 111 mm[Hg] [facility] Diastolic blood pressure 2022-09-10 23:55:00 84 mm[Hg] [facility] Heart rate 2022-09-10 23:55:00 105 /min [facility] Body temperature 2022-09-10 23:55:00 37.33 Oma [facility] Respiratory rate 2022-09-10 23:55:00 19 /min [facility] Systolic blood pressure 2022-09-10 01:44:00 126 mm[Hg] [facility] Diastolic blood pressure 2022-09-10 01:44:00 81 mm[Hg] [facility] Heart rate 2022-09-10 01:44:00 78 /min [facility] Body temperature 2022-09-10 01:44:00 36.56 Oma [facility] Respiratory rate 2022-09-10 01:44:00 16 /min [facility] Body weight 2022-09-10 01:44:00 79.379 kg [facility] BMI 2022-09-10 01:44:00 35.35 kg/m2 [facility] Oxygen saturation in Arterial blood by Pulse oximetry 2022-09-10 01:44:00 100 /min [facility] Systolic blood pressure 2022-09-07 05:37:00 119 mm[Hg] [facility] Diastolic blood pressure 2022-09-07 05:37:00 67 mm[Hg] [facility] Heart rate 2022-09-07 05:37:00 79 /min [facility] Respiratory rate 2022-09-07 05:37:00 16 /min [facility] Oxygen saturation in Arterial blood by Pulse oximetry 2022-09-07 05:37:00 98 /min [facility] Body temperature 2022-09-06 23:05:00 36.78 Oma [facility] Body weight 2022-09-06 23:05:00 79.379 kg [facility] BMI 2022-09-06 23:05:00 35.35 kg/m2 [facility] Systolic blood pressure 2021-10-02 20:55:00 111 mm[Hg] [facility] Diastolic blood pressure 2021-10-02 20:55:00 70 mm[Hg] [facility] Heart rate 2021-10-02 20:55:00 79 /min [facility] Body temperature 2021-10-02 20:55:00 36.61 Oma [facility] Respiratory rate 2021-10-02 20:55:00 18 /min [facility] Body height 2021-10-02 20:55:00 149.9 cm [facility] Body weight 2021-10-02 20:55:00 79.379 kg [facility] BMI 2021-10-02 20:55:00 35.35 kg/m2 [facility] Oxygen saturation in Arterial blood by Pulse oximetry 2021-10-02 20:55:00 100 /min [facility] Systolic blood pressure 2021-05-05 19:20:00 102 mm[Hg] [facility] Diastolic blood pressure 2021-05-05 19:20:00 48 mm[Hg] [facility] Heart rate 2021-05-05 19:20:00 68 /min [facility] Body temperature 2021-05-05 19:20:00 36.94 Oma [facility] Respiratory rate 2021-05-05 19:20:00 18 /min [facility] Body weight 2021-05-05 19:20:00 79.379 kg [facility] BMI 2021-05-05 19:20:00 35.35 kg/m2 [facility] Oxygen saturation in Arterial blood by Pulse oximetry 2021-05-05 19:20:00 99 /min [facility] Systolic blood pressure 2019-12-15 22:12:00 138 mm[Hg] [facility] Diastolic blood pressure 2019-12-15 22:12:00 100 mm[Hg] [facility] Heart rate 2019-12-15 22:12:00 77 /min [facility] Body temperature 2019-12-15 22:12:00 37.06 Oma [facility] Respiratory rate 2019-12-15 22:12:00 20 /min [facility] Body weight 2019-12-15 22:12:00 79.379 kg [facility] BMI 2019-12-15 22:12:00 35.35 kg/m2 [facility] Oxygen saturation in Arterial blood by Pulse oximetry 2019-12-15 22:12:00 100 /min [facility] Systolic blood pressure 2019-12-15 22:12:00 138 mm[Hg] [facility] Diastolic blood pressure 2019-12-15 22:12:00 100 mm[Hg] [facility] Heart rate 2019-12-15 22:12:00 77 /min [facility] Body temperature 2019-12-15 22:12:00 37.06 Oma [facility] Respiratory rate 2019-12-15 22:12:00 20 /min [facility] Body weight 2019-12-15 22:12:00 79.379 kg [facility] BMI 2019-12-15 22:12:00 35.35 kg/m2 [facility] Oxygen saturation in Arterial blood by Pulse oximetry 2019-12-15 22:12:00 100 /min [facility] Respiratory rate 2019-10-25 23:43:00 18 /min [facility] Body weight 2019-10-25 23:43:00 83.915 kg [facility] BMI 2019-10-25 23:43:00 37.37 kg/m2 [facility] Respiratory rate 2019-10-25 23:43:00 18 /min [facility] Body weight 2019-10-25 23:43:00 83.915 kg [facility] BMI 2019-10-25 23:43:00 37.37 kg/m2 [facility] Systolic blood pressure 2019-08-13 19:25:00 123 mm[Hg] [facility] Diastolic blood pressure 2019-08-13 19:25:00 88 mm[Hg] [facility] Heart rate 2019-08-13 19:25:00 78 /min [facility] Body temperature 2019-08-13 19:25:00 36.56 Oma [facility] Respiratory rate 2019-08-13 19:25:00 18 /min [facility] Body height 2019-08-13 19:25:00 149.9 cm [facility] Body weight 2019-08-13 19:25:00 90.719 kg [facility] BMI 2019-08-13 19:25:00 40.40 kg/m2 [facility] Oxygen saturation in Arterial blood by Pulse oximetry 2019-08-13 19:25:00 100 /min [facility] Systolic blood pressure 2019-08-13 19:25:00 123 mm[Hg] [facility] Diastolic blood pressure 2019-08-13 19:25:00 88 mm[Hg] [facility] Heart rate 2019-08-13 19:25:00 78 /min [facility] Body temperature 2019-08-13 19:25:00 36.56 Oma [facility] Respiratory rate 2019-08-13 19:25:00 18 /min [facility] Body height 2019-08-13 19:25:00 [facility] 2019-08-13 19:25:00 90.719 kg [facility] BMI 2019-08-13 19:25:00 40.40 kg/m2 [facility] Oxygen saturation in Arterial blood by Pulse oximetry 2019-08-13 19:25:00 100 /min [facility] Oxygen saturation in Arterial blood by Pulse oximetry 2019-07-23 00:20:15 100 /min [facility] Systolic blood pressure 2019-07-23 00:20:15 120 mm[Hg] [facility] Diastolic blood pressure 2019-07-23 00:20:15 74 mm[Hg] [facility] Heart rate 2019-07-23 00:20:15 82 /min [facility] Respiratory rate 2019-07-23 00:20:15 19 /min [facility] Body temperature 2019-07-22 19:41:00 36.33 Oma [facility] Body weight 2019-07-22 19:39:00 90.719 kg [facility] BMI 2019-07-22 19:39:00 39.06 kg/m2 [facility] Oxygen saturation in Arterial blood by Pulse oximetry 2019-07-23 00:20:15 100 /min [facility] Systolic blood pressure 2019-07-23 00:20:15 120 mm[Hg] [facility] Diastolic blood pressure 2019-07-23 00:20:15 74 mm[Hg] [facility] Heart rate 2019-07-23 00:20:15 82 /min [facility] Respiratory rate 2019-07-23 00:20:15 19 /min [facility] Body temperature 2019-07-22 19:41:00 36.33 Oma [facility] Body weight 2019-07-22 19:39:00 90.719 kg [facility] BMI 2019-07-22 19:39:00 39.06 kg/m2 [facility] Systolic blood pressure 2019-07-14 03:33:00 127 mm[Hg] [facility] Diastolic blood pressure 2019-07-14 03:33:00 88 mm[Hg] [facility] Heart rate 2019-07-14 03:33:00 79 /min [facility] Respiratory rate 2019-07-14 03:33:00 16 /min [facility] Oxygen saturation in Arterial blood by Pulse oximetry 2019-07-14 03:33:00 97 /min [facility] Body weight 2019-07-14 02:16:00 90.719 kg [facility] BMI 2019-07-14 02:16:00 39.06 kg/m2 [facility] Body temperature 2019-07-14 02:15:00 36.78 Oma [facility] Body weight 2019-07-10 20:39:00 90.719 kg [facility] BMI 2019-07-10 20:39:00 39.06 kg/m2 [facility] Systolic blood pressure 2019-01-21 23:34:00 133 mm[Hg] [facility] Diastolic blood pressure 2019-01-21 23:34:00 78 mm[Hg] [facility] Heart rate 2019-01-21 23:34:00 66 /min [facility] Body temperature 2019-01-21 23:34:00 36.94 Oma [facility] Respiratory rate 2019-01-21 23:34:00 18 /min [facility] Body height 2019-01-21 23:34:00 147.3 cm [facility] Body weight 2019-01-21 23:34:00 68.04 kg [facility] BMI 2019-01-21 23:34:00 31.35 kg/m2 [facility] Oxygen saturation in Arterial blood by Pulse oximetry 2019-01-21 23:34:00 100 /min [facility] Systolic blood pressure 2019-01-21 23:34:00 133 mm[Hg] [facility] Diastolic blood pressure 2019-01-21 23:34:00 78 mm[Hg] [facility] Heart rate 2019-01-21 23:34:00 66 /min [facility] Body temperature 2019-01-21 23:34:00 36.94 Oma [facility] Respiratory rate 2019-01-21 23:34:00 18 /min [facility] Body height 2019-01-21 23:34:00 147.3 cm [facility] Body weight 2019-01-21 23:34:00 68.04 kg [facility] BMI 2019-01-21 23:34:00 31.35 kg/m2 [facility] Oxygen saturation in Arterial blood by Pulse oximetry 2019-01-21 23:34:00 100 /min [facility] BP Systolic 2024-02-24 13:46:00 107 [...] Rate 2023-09-16 16:13:00 18.00 /min Henry F Bne BP Systolic 2023-08-01 10:10:00 107 mm[Hg] Step [...] Ben Weight Measured 2023-07-04 17:03:00 171.00 pounds Hnery F Ben Height Measured 2023-07-04 17:03:00 56.50 inches Henry F Ben Body Temperature 2023-07-04 17:03:00 98.10 degrees Henry F Ben Heart Rate 2023-07-04 17:03:00 77.00 /min Antoinette en F Ben Respiratory Rate 2023-07-04 17:03:00 Henry F Ben BP Systolic 2023-06-04 16:08:00 116 mm[Hg] Step hen F Ebn BP Diastolic 2023-06-04 16:08:00 82 mm[Hg] Franck [...] 2023-03-02 12:35:00 119 mm[Hg] Step hen F Bne BP Diastolic 2023-03-02 12:35:00 69 mm[Hg] Franck [...] OF BENEFITS 2023-07-23 18:45:32 Docto r Unassigned, [place] [facility] REFERRAL- REQUEST/RESPONSE 2023-06-05 06:01:00 Doctor Unassigned, [place] [facility] REFERRAL- REQUEST/RESPONSE 2023-05-20 06:01:00 Doctor Unassigned, [place] [facility] COMP. METABOLIC PANEL (64300) 2022-09-07 01:38:00 Tayo Boyd [facility] CBC WITH DIFF 2022-09-07 01:38:00 Tayo Boyd [facility] URINALYSIS 2022-09-07 01:38:00 Tayo Boyd [facility] XR ANKLE <3 VW LEFT 2022-09-07 00:56:00 Tayo Boyd [facility] XR FOOT <3 VW LEFT 2022-09-07 00:56:00 Tayo Boyd [facility] CONSENT/REFUSAL FOR DIAGNOSIS AND TREATMENT 2022-09-06 22:08:37 Doctor Unassigned, [place] [facility] CT CERVICAL SPINE WO CONTRAST 2021-10-02 21:53:00 Javed Frank [facility] CT LUMBAR SPINE WO CONTRAST 2021-10-02 21:53:00 Javed Frank [facility] CT THORACIC SPINE WO CONTRAST 2021-10-02 21:53:00 Javed Frank [facility] XR FOREARM 2 VW RIGHT 2021-05-05 20:03:34 Jose Carlos Nunez [facility] XR WRIST 3+ VW RIGHT 2021-05-05 20:03:34 Chino Nunez [facility] NOTICE OF PRIVACY PRACTICES 2021-05-05 19:12:00 Doctor Unassigned, [place] [facility] CONSENT/REFUSAL FOR DIAGNOSIS AND TREATMENT 2021-05-05 19:11:19 Doctor Unassigned, [place] [facility] CONSENT/REFUSAL FOR DIAGNOSIS AND TREATMENT 2019-08-13 19:17:22 Doctor Unassigned, [place] [facility] CT HEAD WO CONTRAST 2019-07-22 22:24:37 Rachel Samayoa [facility] XR CERVICAL SPINE 2 VW 2019-07-22 21:59:59 Samantha Samayoa [facility] CBC WITH DIFFERENTIAL 2019-07-22 21:34:00 Yanira Samayoa [facility] XR CERVICAL SPINE 2 VW 2019-07-14 02:43:00 Ivory Owen [facility] XR ELBOW <3 VW LEFT 2019-07-14 02:43:00 Henry Owen [facility] XR KNEE <3 VW RIGHT 2019-07-14 02:43:00 Henry Owen [facility] XR SHOULDER <2 VW LEFT 2019-07-14 02:43:00 Ivory Owen [facility] [id number] Ecg Routine Ecg W/least 12 Lds W/i r 2017-09-24 00:00:00 Henry Contreras Encounters Start Date/Time End Date/Time Encounter Type Admission Type Attending [facility] Care Facility Care Department Encounter ID Source 2022-11-13 13:10:28 Inpatient [facility] [id number] [facility] 2022-11-05 09:23:13 Inpatient [facility] [id number] [facility] 2024-04-15 15:38:37 2024-04-15 15:38:37 Outpatient [facility] [id number] Henry Etta Ben 2024-02-24 00:00:00 2024-02-24 00:00:00 Outpatient Visit [facility] [id number] Henry Contreras 2024-02-06 11:12:07 2024-02-06 11:12:07 Outpatient [...] 2023-11-25 00:00:00 2023-11-25 00:00:00 Outpatient Visit [facility] [id number] Henry Quiles Ben 2023-11-23 19:45:00 2023-11-24 19:04:00 Outpatient Encounter 1 [facility]WR[facility] 2.16.840.1. [id number] [facility] 2023-11-21 19:00:00 2023-11-22 01:00:00 Emergency ER JANNETH ARLEN [id number] [facility] 2023-11-16 23:05:00 2023-11-21 17:28:00 Inpatient ER JUAN MIGUEL PRICE [id number] [facility] 2023-11-15 16:24:00 2023-11-15 22:54:00 Emergency ER MELVINA SHEPHERD CHRTJP CHRTJP [id number] RODERICK Ainsley Ro [facility] 2023-10-28 12:27:38 2023-10-28 12:27:38 Outpatient [facility] [id number] Henry Contreras 2023-10-25 15:44:11 2023-10-25 15:44:11 Outpatient SFA [facility] [id number] Henry Contreras 2023-10-25 00:00:00 2023-10-25 00:00:00 Outpatient Visit [facility] [id number] Henry Contreras 2023-10-04 15:25:52 2023-10-04 15:25:52 Outpatient SFA [facility] [id number] Henry Contreras 2023-10-01 00:00:00 2023-10-01 00:00:00 Telephone Indio Phelan [facility] 1.840.114 350.1.13.10 4.2.7.2.686 [id number] [facility] 2023-09-16 16:03:08 2023-09-16 16:03:08 Outpatient SFA [facility] [id number] Henry Contreras 2023-08-01 10:00:49 2023-08-01 10:00:49 Outpatient SFA [facility] [id number] Henry Contreras 2023-07-23 14:20:00 2023-07-23 16:57:02 Outpatient INDIO OLIVEROS [facility] [id number] [facility] 2023-07-23 14:20:00 2023-07-23 16:57:02 Office Visit Indio Phelan [facility] 1.840.114 350.1.13.10 4.2.7.2.686 [id number] [facility] 2023-07-23 00:00:00 2023-07-23 00:00:00 Orders Only Doctor Unassigned, [place] [facility] 1.840.114 350.1.13.10 4.2.7.2.686 [id number] [facility] 2023-07-04 16:48:23 2023-07-04 16:48:23 Outpatient [facility] [id number] Henry Contreras 2023-06-18 10:35:36 2023-06-18 10:35:36 Outpatient [facility] [id number] Henry Contreras 2023-06-05 00:00:00 2023-06-05 00:00:00 Orders Only Doctor Unassigned, [place] [facility] 1.2.840.114 350.1.13.10 4.2.7.2.686 [id number] [facility] 2023-06-04 16:00:39 2023-06-04 16:00:39 Outpatient [facility] [id number] Henry Quiles [place] 2023-05-24 15:38:52 2023-05-24 15:38:52 Outpatient [facility] [id number] Henry Quiles [place] 2023-05-22 00:00:00 2023-05-22 00:00:00 Letter (Out) Neurology [facility] 1.2.840.114 350.1.13.10 4.2.7.2.686 [id number] [facility] 2023-05-20 00:00:00 2023-05-20 00:00:00 Orders Only Doctor Unassigned, [place] [facility] 1.2.840.114 350.1.13.10 4.2.7.2.686 [id number] [facility] 2023-05-17 15:07:14 2023-05-17 15:07:14 Outpatient [facility] [id number] Henry Quiles Ben 2023-03-02 12:27:43 2023-03-02 12:27:43 Outpatient [facility] [id number] Henry Quiles Ben 2023-01-09 17:11:26 2023-01-09 17:11:26 Outpatient [facility] [id number] Henry Contreras 2022-11-04 14:04:00 2022-11-05 11:09:00 Emergency JESS FALCON [facility] [id number] [facility] 2022-09-24 12:33:00 2022-09-24 12:51:00 Emergency Heri Snow [facility] 1..114 350.1.13.10 4.2.7.2.686 [id number] [facility] 2022-09-22 00:00:00 2022-09-22 00:00:00 [facility] 1..114 350.1.13.10 4.2.7.2.686 [id number] [facility] 2022-09-18 10:09:00 2022-09-19 14:28:00 Inpatient EM Marly Mendenhall [facility] OBSE [id number] 25 [facility] 2022-09-16 22:50:00 2022-09-17 01:40:00 Emergency EM Guero, Asim [facility] FABI [id number] [facility] 2022-09-14 14:52:00 2022-09-15 14:00:00 Inpatient EM lVadimir Forbes [facility] TELE [id number] 75 [facility] 2022-09-13 09:34:00 2022-09-13 13:00:00 Emergency EM Brad Woodall [facility] FABI [id number] 75 [facility] 2022-09-10 23:39:00 2022-09-11 11:28:00 Emergency EM Russel Sewell [facility] [id number] [facility] 2022-09-10 18:57:00 2022-09-10 20:20:00 Emergency Lisa Morfin Whitney [facility] 1.84.114 350.1.13.10 4.2.7.2.686 [id number] [facility] 2022-09-10 18:57:00 2022-09-10 20:20:00 Emergency X SANDRITA KEY [facility] ERT [id number] [facility] 2022-09-09 20:45:00 2022-09-09 22:46:00 Emergency X SANDRITA KEY [facility] ERT [id number] [facility] 2022-09-09 20:45:00 2022-09-09 22:46:00 Emergency Sandrita Key [facility] 1..840.114 350.1.13.10 4.2.7.2.686 [id number] [facility] 2022-09-06 18:09:00 2022-09-07 00:51:00 Emergency X TAYO BOYD [facility] ERT [id number] [facility] 2022-09-06 18:09:00 2022-09-07 00:51:00 Emergency Tayo Boyd [facility] 1..840.114 350.1.13.10 4.2.7.2.686 [id number] [facility] 2022-08-21 14:11:33 2022-08-21 14:11:33 Outpatient [facility] [id number] Henry Contreras 2022-07-17 15:03:48 2022-07-17 15:03:48 Outpatient [facility] [id number] Henry Quiles Ben 2021-10-02 15:56:00 2021-10-02 19:00:00 Emergency X JAVED FRANK [facility] ERT [id number] [facility] 2021-10-02 15:56:00 2021-10-02 19:00:00 Emergency Javed Frank [facility] 1..840.114 350.1.13.10 4.2.7.2.686 [id number] [facility] 2021-05-05 13:22:00 2021-05-05 14:48:00 Emergency X DEON NUNEZ [facility] ERT [id number] [facility] 2021-05-05 13:22:00 2021-05-05 14:48:00 Emergency Deon Nunez [facility] 1.2.840.114 350.1.13.10 4.2.7.2.686 [id number] [facility] 2021-05-05 00:00:00 2021-05-05 00:00:00 Orders Only Doctor Unassigned, [place] [facility] 1.2.840.114 350.1.13.10 4.2.7.2.686 [id number] [facility] 2019-12-15 17:11:56 2019-12-15 18:04:00 [facility] 1.2.840.114 350.1.13.10 4.2.7.2.686 [id number] 2019-12-15 17:11:56 2019-12-15 18:04:00 Emergency Kp Gilliland [facility] 1.2.840.114 350.1.13.10 4.2.7.2.686 [id number] [facility] 2019-12-15 17:11:56 2019-12-15 17:11:56 Emergency X Kp GILLILAND [facility] ERT [id number] [facility] 2019-10-25 18:31:31 2019-10-25 19:21:00 Emergency Kristin Miller [facility] 1.2.840.114 350.1.13.10 4.2.7.2.686 [id number] 2019-10-25 18:31:31 2019-10-25 19:21:00 Emergency Kristin Miller [facility] 1.2.840.114 350.1.13.10 4.2.7.2.686 [id number] [facility] 2019-10-25 18:31:31 2019-10-25 18:31:31 Emergency X KRISTIN MILLER [facility] ERT [id number] [facility] 2019-08-13 13:30:00 2019-08-13 14:36:00 Emergency Floridalma Evans [facility] 1.2.840.114 350.1.13.10 4.2.7.2.686 [id number] 2019-08-13 13:30:00 2019-08-13 14:36:00 Emergency Floridalma Evans [facility] 1.2.840.114 350.1.13.10 4.2.7.2.686 [id number] [facility] 2019-08-13 13:30:00 2019-08-13 14:36:00 Emergency X FLORIDALMA EVANS [facility] ERT [id number] [facility] 2019-07-22 13:42:11 2019-07-22 19:02:00 Emergency Unknown, Attending Lisa Morfin [facility] 1.2.840.114 350.1.13.10 4.2.7.2.686 [id number] 2019-07-22 13:42:11 2019-07-22 19:02:00 Emergency X LISA MORFIN [facility] ERT [id number] [facility] 2019-07-22 13:42:11 2019-07-22 19:02:00 Emergency Unknown, Attending Lisa Morfin [facility] 1.2.840.114 350.1.13.10 4.2.7.2.686 [id number] [facility] 2019-07-13 20:17:19 2019-07-13 21:48:00 Emergency X LEXIEHENRY [facility] ERT [id number] [facility] 2019-07-13 20:17:19 2019-07-13 21:48:00 Emergency Lexie, Henry [facility] 1.2.840.114 350.1.13.10 4.2.7.2.686 [id number] [facility] 2019-07-10 14:26:03 2019-07-10 16:33:00 Emergency X DEBBIE PAYTON [facility] ERT [id number] [facility] 2019-07-10 14:26:03 2019-07-10 16:33:00 Emergency Debbie Payton [facility] 1.2840.114 350.1.13.10 4.2.7.2.686 [id number] [facility] 2019-07-04 19:09:02 2019-07-04 22:51:00 Emergency X LISA MORFIN [facility] ERT [id number] [facility] 2019-06-30 10:33:08 2019-06-30 13:10:00 Emergency X DEON [facility] ERT [id number] [facility] 2019-05-25 11:58:19 2019-05-25 15:37:00 Emergency X DEON [facility] ERT [id number] [facility] 2019-04-09 22:29:37 2019-04-09 23:28:00 Emergency X FLORIDALMA EVANS [facility] ERT [id number] [facility] 2019-01-21 18:38:01 2019-01-21 19:59:00 Emergency Le Ramirez [facility] 1.2.840.114 350.1.13.10 4.2.7.2.686 [id number] 2019-01-21 18:38:01 2019-01-21 19:59:00 Emergency Le Ramirez [facility] 1.2.840.114 350.1.13.10 4.2.7.2.686 [id number] [facility] Results Test Description Test Time Test Comments Results Result Co mments Source Henry Daniel [id number] 04:20:00* Test Item Value Reference Range Interpretation Comme nts FT4 (test code = FT4) 1.05 ng/dL 0.78-2.19 T3 [id number] 04:20:00* Test Item Value Reference Range Interpretation Comme nts T3UP (test code = T3UP) 40.9 % 23.5-40.5 H Thyroxine (T4) free index in Serum or [id number] 04:19:00* Test Item Value Reference Range Interpretation Comme nts Thyroxine (T4) free index in Serum or Plasma (test code = 12897-9) 1.05 ng/dL 0.78-2.19 N [facility])Thyroid hormone uptake (T-uptake) in Serum or P 2023-11-24 04:18:00* Test Item Value Reference Range Interpretation Comme nts Thyroid hormone uptake (T-up take) in Serum or Plasma (test code = 82988-6) 40.9 % 23.5-40.5 H [facility])URINE DRUG [id number] 00:43:00* Test Item Value Reference Range Interpretation [...] abuse 5 panel - Urine by Screen [id number] 00:40:00 NegativeNegativeNegativeNegativeNegativeNegativeNegativeCent[facility])[id number] 00:33:00* Test Item Value Reference Range Interpretation [...] /HPF 0-2 Urinalysis panel - Urine by [id number] 00:33:00* Test Item Value Reference Range Interpretation Comme nts Ketones [Presence] in Urine (test code = 98345-2) 15 MG/DL NEG N pH of Urine (test code = 2756-5) 5.5 1 5.0-7.5 N Urobilinogen [Presence] in U rine (test code = 77818-9) 0.2 EU/DL 0.2-1.0 N Specific gravity of Urine (t est code = 2965-2) 1.013 1 1.0-1.025 N Leukocytes [Presence] in Uri ne sediment by Light microscopy (test code = 28512-8) 10 /HPF 0.0-5.0 H Erythrocytes [Presence] in U rine sediment by Light microscopy (test code = 77420-4) 2 /HPF 0.0-2.0 N [facility])VITAMIN [id number] 22:47:00* Test Item Value Reference Range Interpretation Comme nts B12 (test code = B12) 880 pg/mL 239-931 [id number] 22:47:00* Test Item Value Reference Range Interpretation Comme nts FOLATE (test code = FOLATE) 8.9 ng/mL 2.76-20.0 THYROID STIMULATION [id number] 22:47:00* Test Item Value Reference Range Interpretation Comme nts TSH (test code = TSH) 6.62 UIU/ML 0.465-4.68 H Thyrotropin in Serum or [id number] 22:47:00* Test Item Value Reference Range Interpretation Comme nts Thyrotropin in Serum or Plas ma (test code = 49906-6) 6.62 UIU/ML 0.465-4.68 H [facility])Cobalamin (Vitamin B12) [Mass/volume] in Serum 2023-11-23 22:47:00* Test Item Value Reference Range Interpretation Comme nts Cobalamin (Vitamin B12) [Mass/volume] in Serum or Plasma (test code = 2132-9) 880 pg/mL 239.0-931.0 N [facility])Folate [Mass/volume] in Serum or [id number] 22:47:00* Test Item Value Reference Range Interpretation Comme nts Folate [Mass/volume] in Seru m or Plasma (test code = 2284-8) 8.9 ng/mL 2.76-20.0 N [facility])ER SCREEN FOR HIV / 22:46:00* Test Item Value Reference Range Interpretation Comme [facility] HIV 1/2 AB (test code = SCRN HIV) NEGATIVE NEGATIVE This test is us ed for SCREENING purposes only. All reactive results are prelimenary and confirmation results will follow. HIV 1+2 Ab [Units/volume] in [id number] 22:45:[facility]HEPATITIS C ANTIBODY [id number] 22:28:00* Test Item Value Reference Range Interpretation Comme nts SCRN HCV (test code = SCRN HCV) NEGATIVE NEGATIVE Hepatitis C Anti body test is for screening purposes only. All reactives will be confirmed by additional testing. Hepatitis C virus Ab [Presence] in [id number] 22:27:00[facility])B-HCG QUAL (KIT)2023-11-23 22:01:00* Test Item Value Reference Range Interpretation Comme nts HCGQUAL (test code = HCGQUAL) NEGATIVE NEGATIVE URINE: NEGATIVE = < 20 mIU/ML; POSITIVE= >/= 20 mIU/ML SERUM: NEGATIVE = < 10 mIU/ML; POSITIVE= >/= 10 mIU/ML SOURCE (test code = SOURCE) SERUM HCG INTERNAL POSITIVE CNTRL (test code = HCGIPC) PASS PASS HCG LOT # (test code = UHCGLOT) [id number] HCG EXPIRATION DATE (test code = UHCGEXP) Choriogonadotropin.beta subunit ( [id number] 22:01:00* Test Item Value Reference Range Interpretation Comme nts Specimen source [Identifier] of Body fluid (test code = 44671-3) SERUM N Reagent Lot number (test cod e = 47736-0) 1 N [facility])CT HEAD W/O [id number] 22:00:00 [facility] : 1975 Sex: F[address] [id number] IMAGING REPORTPatient Name: ROBERT, CONCEPTIONDate of Service: 54-50-1119Mmn: 48 Sex: F Order #: [id number] Room: ERSDOB: 1975 X-Ray Number: [id number] Record Number: [id number] Hospital Number: [id number] Physician: LAWRENCE MEJIASOrdering Physician: LAWRENCE MEJIASPROCEDURE: CTHEAD [...] 21:59:03CT Head and Orbit - bilateral WO [id number] 21:59:03 ORDER 1400: CT HEAD W/O CONT (LOINC: 56807-1)ORDER DATE: November 24, 2023 12:50:00 AM [facility]CT ABDOMEN/PELVIS [id number] 21:54:00 [facility] CONCEPTION : 1975 Sex: F[address] [id number] IMAGING REPORTPatient Name: ROBERT, CONCEPTIONDate of Service: 07-38-0468Otp: 48 Sex: F Order #: [id number] Room: ERSDOB: 1975 X-Ray Number: [id number] Record Number: [id number] Hospital Number: [id number] Physician: LAWRENCE MEJIASOrdering Physician: LAWRENCE MEJIASPROCEDURE: CT [...] has been electronically signed by: Mikel Del iRo MD on11/23/2023 21:53:03Legally authenticated by YUNIOR MCKEON 2023-11-23 21:53:03 CT Abdomen and [id number] 21:53:03ORDER 1500: CT ABDOMEN/PELVIS WITHOUT (LOINC: 14977-5)ORDER DATE: November 24, 2023 12:50:00 AM [facility])[id number] 21:31:00* Test Item Value Reference Range Interpretation [...] of age is not validated by the cell stripper and may not represent the patients true [...] should be used in the calculation". CREATINE [id number] 21:31:00* Test Item Value Reference Range Interpretation Comme nts CK (test code = CK) 115 U/L 30-135 BLOOD ALCOHOL (ETOH)2023-11-23 21:31:00* Test Item Value Reference Range Interpretation Comme nts ALCOHOL BLOOD LEVEL (test code = ALC BLD) <10 MG/DL 0-10 Results ar e to be used for medical purposes (treatment) only. Not intended for non medical purposes. Ethanol [Mass/volume] in [id number] 21:30:00* Test Item Value Reference Range Interpretation Comme nts Ethanol [Mass/volume] in Blo od (test code = 5640-8) <10 0.0-10.0 [facility])Creatine kinase isoenzymes [interpretation] in 2023-11-23 21:30:00* Test Item Value Reference Range Interpretation Comme nts Creatine kinase isoenzymes [interpretation] in Serum or Plasma Narrative (test code = 79366-0) 115 U/L 30.0-135.0 [facility])Comprehensive metabolic 2000 panel - Serum or P 2023-11-23 21:27:00* Test Item Value Reference Range Interpretation Comme nts Sodium [Moles/volume] in Blood (test code = 2947-0) 137 MMOL/L 137.0-145.0 N Potassium [Moles/volume] in Blood (test code = 6298-4) 4.2 MMOL/L 3.5-5.1 N Chloride [Moles/volume] in Blood (test code = 2069-3) 100 MMOL/L 98.0-107.0 N Carbon dioxide, total [Moles/volume] in Blood (test code = 29919-3) 24 MMOL/L 22.0-30.0 N Urea nitrogen [Mass/volume] in Serum or Plasma (test code = 3094-0) 16 MG/DL 7.0-17.0 N Creatinine [Mass/volume] in Blood (test code = 19183-3) 0.6 MG/DL 0.7-1.2 L Glucose [Mass/volume] in Blood (test code = 2339-0) 80 MG/DL 70.0-99.0 N Calcium [Mass/volume] in Serum or Plasma (test code = 72306-0) 10.3 MG/DL 8.4-10.2 H Protein [Mass/volume] in Serum or Plasma (test code = 2885-2) 9.9 G/DL 6.3-8.2 H Albumin [Presence] in Serum or Plasma (test code = 56498-9) 4.7 G/DL 3.5-5.0 N Bilirubin direct and total panel [Mass/volume] - Serum or Plasma (test code = 54932-3) 0.8 MG/DL 0.2-1.3 N Aspartate aminotransferase [Enzymatic [...] 50 percent [- Reported] (test code = 67034-9) 113.0 mL/min/1.73m2 N Anion gap in Serum or Plasma (test code = 21231-9) 13 mmol/L 4.0-12.0 H [facility])[id number] 21:15:00* Test Item Value Reference Range Interpretation [...] 1.2-7.2 CBC W Auto Differential panel - [id number] 21:15:00* Test Item Value Reference Range Interpretation Comme nts Leukocytes other [Identifier ] in Blood by Automated count (test code = 86429-1) 4.5 K/UL 3.5-10.9 N Erythrocytes [#/volume] in B lood (test code = 32640-5) 4.91 M/UL 4.0-5.0 N Hemoglobin A/Hemoglobin.tota l in Blood (test code = 4546-8) 13.8 G/DL 11.5-15.5 N Hematocrit [Volume Fraction] of Blood (test code = 10742-5) 42.4 % 34.0-46.0 N Erythrocyte mean corpuscular volume [Entitic volume] (test code = 19548-9) 86.4 FL 80.0-98.0 N Erythrocyte mean corpuscular hemoglobin [Entitic mass] (test code = 39758-8) 28.1 PG 28.0-32.0 N Erythrocyte mean corpuscular hemoglobin concentration [Mass/volume] (test code = 29191-2) 32.5 G/DL 32.5-36.5 N Erythrocyte distribution wid th [Ratio] (test code = 14904-6) 14.9 % 11.5-14.5 H Platelets panel - Blood by Automated count (test code = 45972-7) 124 K/UL 150.0-450.0 L Platelet mean volume [Entiti c volume] in Blood by Automated count (test code = 19878-2) 10.0 FL 7.4-10.4 N Neutrophils.segmented/100 leukocytes in Blood (test code = 35173-6) 53.3 % 40.0-75.0 N Lymphocytes Variant/100 leuk ocytes in Blood (test code = 26088-6) 33.9 % 24.0-44.0 N Lymphocytes+Monocytes/100 leukocytes in Blood (test code = 4662-3) 10.0 % 0.0-13.0 N Eosinophils [#/volume] in Bl ood (test code = 67234-9) 2.2 % 0.0-4.0 N Basophils [#/volume] in Bloo d (test code = 27445-7) 0.4 % 0.0-2.0 N Immature granulocytes/100 leukocytes in Blood (test code = 56486-1) 0.2 % 0.0-1.0 N Nucleated erythrocytes [#/vo lume] in Blood (test code = 29235-0) 0 /100 WBC N Neutrophils [#/volume] in Bl ood (test code = 14755-3) 2.4 K/UL 1.2-7.2 N [facility] ([place]PAP TEST, THINPREP, [id number] 16:02:24* Test Item Value Reference Range Interpretation Comme nts SOURCE: (test code = 8001) Cervical/Endoce rvical SLIDES: (test code = 8011) 1 LMP: (test code = 8021) SEE NOTE POST MENOPAUSAL SPECIMEN ADEQUACY: (test code = 33378) (NOTE) Satisfactory for evaluation. Endocervical cells/transformation zone component present. INTERPRETATION: (test code = 23081) NILM/NO EPITH. ABNORMALITY;SEE BELOW --- - NEGATIVE FOR INTRAEPITHELIAL LESION OR MALIGNANCY (NILM) ---- CATHODE RAY TUBE ASSEMBLER : (test code = 8101) Jami Smalls LOCATION: (test code = 61122) (NOTE) Specimens proces sed and interpreted at [facility], [address] [place] [address], , CLIA: [id number] CPT: (test code = 8140) (NOTE) 14714 UNLESS OTH ERWISE INDICATED, COMPUTER AIDED AND CATHODE RAY TUBE ASSEMBLER SCREENING PERFORMED. The Pap test is a screening test with an inherent, but low probability of error. Your patient should be reminded to consult you immediately if she experiences any suspicious signs or symptoms, regardless of her Pap test result. An alternate report format containing images or consolidated prior Pap history is available as applicable. HPV HIGH RISK WITH GENOTYPE, [id number] 15:53:52* Test Item Value Reference Range Interpretation Comme nts HPV HIGH RISK INTERP (test code = 30218) NEGATIVE NEGATIVE HPV 16 (test code = 04497) NEGATIVE HPV 18 (test code = 34081) NEGATIVE HPV, HR, OTHER GENOTYPES (test code = 19410) NEGATIVE Testing [facility] is real-time PCR [...] TESTING PERFORMED AT [facility] [address] [place] [address] FAGOTER: JATIN FELIPE M.D. CLIA NUMBER [id number] [facility] [place]. [id number] HPV HIGH RISK WITH GENOTYPE, [id number] 00:00:00* Test Item Value Reference Range Interpretation Comme [facility] HPV HIGH RISK INTERP (test c ode = 64519) NEGATIVE HPV 16 (test code = 81533) NEGATIVE HPV 18 (test code = 32578) NEGATIVE HPV, HR, OTHER GENOTYPES (te st code = 07058) NEGATIVE PDFE (test code = PDFReport) PDF Henry ContrerasPAP TEST, THINPREP, [id number] 00:00:00* Test Item Value Reference Range Interpretation Comme [facility] SOURCE: (test code = 8001) Cervical/Endocervical SLIDES: (test code = 8011) 1 LMP: (test code = 8021) SEE NOTE SPECIMEN ADEQUACY: (test code = 28325) (NOTE) INTERPRETATION: (test code = 25326) NILM/NO EPITH. ABNORMALITY;SEE BELOW CATHODE RAY TUBE ASSEMBLER: (test code = 8101) Jami Smalls LOCATION: (test code = 45463) (NOTE) CPT: (test code = 8140) (NOTE) Henry ContrerasHPV HIGH RISK WITH GENOTYPE, [id number] 00:00:00* Test Item Value Reference Range Interpretation Comme [facility] HPV HIGH RISK INTERP (test c ode = 85105) NEGATIVE HPV 16 (test code = 86064) NEGATIVE HPV 18 (test code = 14177) NEGATIVE HPV, HR, OTHER GENOTYPES (te st code = 81496) NEGATIVE PDFE (test code = PDFReport) PDF Henry ContrerasPAP TEST, THINPREP, [id number] 00:00:00* Test Item Value Reference Range Interpretation Comme nts SOURCE: (test code = 8001) Cervical/Endocervical SLIDES: (test code = 8011) 1 LMP: (test code = 8021) SEE NOTE SPECIMEN ADEQUACY: (test code = 40604) (NOTE) INTERPRETATION: (test code = 31225) NILM/NO EPITH. ABNORMALITY;SEE BELOW CATHODE RAY TUBE ASSEMBLER: (test code = 8101) Jami Smalls LOCATION: (test code = 10242) (NOTE) CPT: (test code = 8140) (NOTE) Henry ContrerasHPV HIGH RISK WITH GENOTYPE, [id number] 00:00:00* Test Item Value Reference Range Interpretation Comme nts HPV HIGH RISK INTERP (test c ode = 58377) NEGATIVE HPV 16 (test code = 96272) NEGATIVE HPV 18 (test code = 51512) NEGATIVE HPV, HR, OTHER GENOTYPES (te st code = 61617) NEGATIVE PDFE (test code = PDFReport) PDF Henry ContrerasPAP TEST, THINPREP, [id number] 00:00:00* Test Item Value Reference Range Interpretation Comme nts SOURCE: (test code = 8001) Cervical/Endocervical SLIDES: (test code = 8011) 1 LMP: (test code = 8021) SEE NOTE SPECIMEN ADEQUACY: (test code = 20161) (NOTE) INTERPRETATION: (test code = 36681) NILM/NO EPITH. ABNORMALITY;SEE BELOW CATHODE RAY TUBE ASSEMBLER: (test code = 8101) Jami Smalls LOCATION: (test code = 09959) (NOTE) CPT: (test code = 8140) (NOTE) Henry ContrerasPAP TEST, THINPREP, IMAGED [ADDED]2023-10-10 00:00:00* Test Item Value Reference Range Interpretation Comme nts SOURCE: (test code = 8001) Unspecified SLIDES: (test code = 8011) 2 LMP: (test code = 8021) NOT GIVEN SPECIMEN ADEQUACY: (test code = 11839) (NOTE) INTERPRETATION: (test code = 78064) UNSATISFACTORY; SEE BELOW OTHER COMMENTS: (test code = 8081) (NOTE) CATHODE RAY TUBE ASSEMBLER: (test code = 8101) Jose Bustillos QC TECHNOLOGIST: (test code = 8111) RAUL Wilde(ASCP),IAC LOCATION: (test code = 72900) (NOTE) CPT: (test code = 8140) (NOTE) Henry F AustinHPV HIGH RISK IF ASC/LSIL, THINPREP [ADDED]2023-10-10 00:00:00* Test Item Value Reference Range Interpretation Comme nts HPV HIGH RISK IF ASC/LSIL, THINPREP (test code = 42068) CRITERIA NOT MET Henry F AustinPAP TEST, THINPREP, IMAGED [ADDED]2023-10-10 00:00:00* Test Item Value Reference Range Interpretation Comme nts SOURCE: (test code = 8001) Unspecified SLIDES: (test code = 8011) 2 LMP: (test code = 8021) NOT GIVEN SPECIMEN ADEQUACY: (test code = 10459) (NOTE) INTERPRETATION: (test code = 66041) UNSATISFACTORY; SEE BELOW OTHER COMMENTS: (test code = 8081) (NOTE) CATHODE RAY TUBE ASSEMBLER: (test code = 8101) Jose Bustillos QC TECHNOLOGIST: (test code = 8111) RAUL Wilde(ASCP),IAC LOCATION: (test code = 26850) (NOTE) CPT: (test code = 8140) (NOTE) Henry F AustinHPV HIGH RISK IF ASC/LSIL, THINPREP [ADDED]2023-10-10 00:00:00* Test Item Value Reference Range Interpretation Comme nts HPV HIGH RISK IF ASC/LSIL, THINPREP (test code = 26943) CRITERIA NOT MET Henry F AustinPAP TEST, THINPREP, IMAGED [ADDED]2023-10-10 00:00:00* Test Item Value Reference Range Interpretation Comme nts SOURCE: (test code = 8001) Unspecified SLIDES: (test code = 8011) 2 LMP: (test code = 8021) NOT GIVEN SPECIMEN ADEQUACY: (test code = 06274) (NOTE) INTERPRETATION: (test code = 19969) UNSATISFACTORY; SEE BELOW OTHER COMMENTS: (test code = 8081) (NOTE) CATHODE RAY TUBE ASSEMBLER: (test code = 8101) Jose Bustillos TECHNOLOGIST: (test code = 8111) Jason Whitman,SCT(ASCP),IAC LOCATION: (test code = 68592) (NOTE) CPT: (test code = 8140) (NOTE) Henry Quiles AustinHPV HIGH RISK IF ASC/LSIL, THINPREP [ADDED]2023-10-10 00:00:00* Test Item Value Reference Range Interpretation Comme nts HPV HIGH RISK IF ASC/LSIL, THINPREP (test code = 35817) CRITERIA NOT MET Henry Quiles AustinGONORRHEA, NAAT, THINPREP [ADDED]2023-10-08 00:00:00* Test Item Value Reference Range Interpretation Comme nts GONORRHEA, NAAT, THINPREP (t est code = 11480) NEGATIVE Henry Quiles AustinCHLAMYDIA, NAAT, THINPREP [ADDED]2023-10-08 00:00:00* Test Item Value Reference Range Interpretation Comme nts CHLAMYDIA, NAAT, THINPREP (t est code = 04472) NEGATIVE PDFE (test code = PDFReport) PDF Henry Quiles AustinGONORRHEA, NAAT, THINPREP [ADDED]2023-10-08 00:00:00* Test Item Value Reference Range Interpretation Comme nts GONORRHEA, NAAT, THINPREP (t est code = 86683) NEGATIVE Henry Quiles AustinCHLAMYDIA, NAAT, THINPREP [ADDED]2023-10-08 00:00:00* Test Item Value Reference Range Interpretation Comme nts CHLAMYDIA, NAAT, THINPREP (t est code = 79903) NEGATIVE PDFE (test code = PDFReport) PDF Henry Quiles AustinGONORRHEA, NAAT, THINPREP [ADDED]2023-10-08 00:00:00* Test Item Value Reference Range Interpretation Comme nts GONORRHEA, NAAT, THINPREP (t est code = 44206) NEGATIVE Henry Quiles AustinCHLAMYDIA, NAAT, THINPREP [ADDED]2023-10-08 00:00:00* Test Item Value Reference Range Interpretation Comme nts CHLAMYDIA, NAAT, THINPREP (t est code = 50885) NEGATIVE PDFE (test code = PDFReport) PDF HenryTRISTAN Tom [id number] 08:14:44* Test Item Value Reference Range Interpretation Comme shaina ALCALA, THIRD GENERATION (test code = 2821) 5.200 UIU/ML 0.400-4.100 H UNLESS OTHERWISE INDICATED, ALL TESTING PERFORMED AT [facility] [address] [place] [address] FAGOTER: JATIN FELIPE M.D. [place] NUMBER [id number] [facility] [place]. [id number] 00:00:00* Test Item Value Reference Range Interpretation Comme shaina TSH, THIRD GENERATION (test code = 2821) 5.200 UIU/ML Henry [id number] 00:00:00* Test Item Value Reference Range Interpretation Comme nts TSH, THIRD GENERATION (test code = 2821) 5.200 UIU/ML Henry [id number] 00:00:00* Test Item Value Reference Range Interpretation Comme shaina ALCALA, THIRD GENERATION (test code = 2821) 5.200 UIU/ML TRISTAN Grover [id number] 23:53:27* Test Item Value Reference Range Interpretation Comme shaina TSH, THIRD GENERATION (test code = 2821) 11.100 UIU/ML 0.400-4.100 H COMPREHENSIVE METABOLIC [id number] 23:46:03* Test Item Value Reference Range Interpretation Comme shaina GLUCOSE (test code = 2217) 97 MG/DL 70-99 BUN (test code = 2208) 7 MG/DL 6-20 CREATININE (test code = 2214) 0.61 MG/DL 0.60-1.30 eGFR (2020 CKD-EPI) (test code = 36182) 110 ML/MIN/1.73 >60 CALC BUN/CREAT (test code [...] 13 U/L 5-40 CBC W/AUTO DIFF WITH [id number] 08:48:44* Test Item Value Reference Range Interpretation [...] 0.00-0.10 ABS NUCLEATED RBCS (test code = 04666) 0.00 K/UL 0.00-0.11 UNLESS OTHER MONTOYA INDICATED, ALL TESTING PERFORMED AT [facility] [address] [place] [address] FAGOTER: Derek FINNIA NUMBER [id number] [facility] [place]. [id number] 00:00:00* Test Item Value Reference Range Interpretation Comme nts TSH, THIRD GENERATION (test code = 2821) 11.100 UIU/ML Henry Etta BenCBC W/AUTO [id number] 00:00:00* Test Item Value Reference Range Interpretation [...] ABS NUCLEATED RBCS (test cod e = 70114) 0.00 K/UL Henry ContrerasCOMPREHENSIVE METABOLIC [id number] 00:00:00* Test Item Value Reference Range Interpretation Comme nts GLUCOSE (test code = 2217) 97 MG/DL BUN (test code = 2208) 7 MG/DL CREATININE (test code = 2214) 0.61 MG/DL eGFR (2020 CKD-EPI) (test code = 94696) 110 ML/MIN/1.73 CALC BUN/CREAT (test code = [...] (test code = 2219) 13 U/L Henry [id number] 00:00:00* Test Item Value Reference Range Interpretation Comme nts TSH, THIRD GENERATION (test code = 2821) 11.100 UIU/ML Henry ContrerasCBC W/AUTO [id number] 00:00:00* Test Item Value Reference Range Interpretation [...] ABS NUCLEATED RBCS (test cod e = 78162) 0.00 K/UL Henry Quiles AustinCOMPREHENSIVE METABOLIC [id number] 00:00:00* Test Item Value Reference Range Interpretation Comme nts GLUCOSE (test code = 2217) 97 MG/DL BUN (test code = 2208) 7 MG/DL CREATININE (test code = 2214) 0.61 MG/DL eGFR (2020 CKD-EPI) (test code = 05315) 110 ML/MIN/1.73 CALC BUN/CREAT (test code = [...] (test code = 2219) 13 U/L Henry [id number] 00:00:00* Test Item Value Reference Range Interpretation Comme nts TSH, THIRD GENERATION (test code = 2821) 11.100 UIU/ML Henry ContrerasCBC W/AUTO [id number] 00:00:00* Test Item Value Reference Range Interpretation [...] ABS NUCLEATED RBCS (test cod e = 67221) 0.00 K/UL Henry ContrerasCOMPREHENSIVE METABOLIC [id number] 00:00:00* Test Item Value Reference Range Interpretation Comme nts GLUCOSE (test code = 2217) 97 MG/DL BUN (test code = 2208) 7 MG/DL CREATININE (test code = 2214) 0.61 MG/DL eGFR (2020 CKD-EPI) (test code = 74495) 110 ML/MIN/1.73 CALC BUN/CREAT (test code = [...] (test code = 2219) 13 U/L Henry [id number] 01:13:06* Test Item Value Reference Range Interpretation Comme nts TRANSFERRIN (test code = 4936) 315 MG/DL 200-360 UNLESS OTHERWISE INDICATED, ALL TESTING PERFORMED AT [facility] [address] [place] [address] FAGOTER: JATIN FELIPE M.D. CLIA NUMBER [id number] [facility] [place]. [id number] LIPID [id number] 01:12:48* Test Item Value Reference Range Interpretation [...] SPECIMENS. FOR MOREINFORMATION, SEE CLIENT ANNOUNCEMENT AT [email or web address] RISK RATIO LDL/HDL (test code = 2237) 1.34 RATIO <3.22 COMPREHENSIVE METABOLIC [id number] 01:12:48* Test Item Value Reference Range Interpretation [...] IRON BINDING CAPACITY AND IRON AND % [id number] 01:12:48* Test Item Value Reference Range Interpretation Comme nts IRON, SERUM (test code = 2221) 51 UG/DL 37-145 UNSATURATED IBC (test code = 61645) 356 UG/DL 112-347 H CALC TOTAL IBC (test code = 2076) 407 UG/DL 250-450 CALC % IRON SAT (test code = 2078) 13 % 20-50 L [id number] 00:59:24* Test Item Value Reference Range Interpretation Comme nts FERRITIN (test code = 2074) 20 NG/ML 13-200 LIPID [id number] 00:00:00* Test Item Value Reference Range Interpretation Comme nts CHOLESTEROL (test code = 2210) 191 MG/DL TRIGLYCERIDES (test code = 2232) 89 MG/DL HDL CHOLESTEROL (test code = 2220) 74 MG/DL CALC LDL CHOL (test code = 2237) 99 MG/DL RISK RATIO LDL/HDL (test cod e = 2238) 1.34 RATIO Henry Quiles BenCOMPREHENSIVE METABOLIC [id number] 00:00:00* Test Item Value Reference Range Interpretation Comme nts GLUCOSE (test code = 2217) 92 MG/DL BUN (test code = 2208) 15 MG/DL CREATININE (test code = 2214) 0.65 MG/DL eGFR (2020 CKD-EPI) (test code = 35452) 108 ML/MIN/1.73 CALC BUN/CREAT (test code = [...] BenIRON BINDING CAPACITY AND IRON AND % [id number] 00:00:00* Test Item Value Reference Range Interpretation Comme nts IRON, SERUM (test code = 2221) 51 UG/DL UNSATURATED IBC (test code = ) 356 UG/DL CALC TOTAL IBC (test code = 2076) 407 UG/DL CALC % IRON SAT (test code = 2078) 13 % Henry [id number] 00:00:00* Test Item Value Reference Range Interpretation Comme nts FERRITIN (test code = 2074) 20 NG/ML Henry [id number] 00:00:00* Test Item Value Reference Range Interpretation Comme nts TRANSFERRIN (test code = 4936) 315 MG/DL Henry ContrerasLIPID [id number] 00:00:00* Test Item Value Reference Range Interpretation Comme nts CHOLESTEROL (test code = 2210) 191 MG/DL TRIGLYCERIDES (test code = 2232) 89 MG/DL HDL CHOLESTEROL (test code = 2220) 74 MG/DL CALC LDL CHOL (test code = 2237) 99 MG/DL RISK RATIO LDL/HDL (test cod e = 2238) 1.34 RATIO Henry ContrerasCOMPREHENSIVE METABOLIC [id number] 00:00:00* Test Item Value Reference Range Interpretation Comme nts GLUCOSE (test code = 2217) 92 MG/DL BUN (test code = 2208) 15 MG/DL CREATININE (test code = 2214) 0.65 MG/DL eGFR (2020 CKD-EPI) (test code = 48464) 108 ML/MIN/1.73 CALC BUN/CREAT (test code = [...] ContrerasIRON BINDING CAPACITY AND IRON AND % [id number] 00:00:00* Test Item Value Reference Range Interpretation Comme nts IRON, SERUM (test code = 2221) 51 UG/DL UNSATURATED IBC (test code = ) 356 UG/DL CALC TOTAL IBC (test code = 2076) 407 UG/DL CALC % IRON SAT (test code = 2078) 13 % Henry [id number] 00:00:00* Test Item Value Reference Range Interpretation Comme nts FERRITIN (test code = 2074) 20 NG/ML Henry Quiles [id number] 00:00:00* Test Item Value Reference Range Interpretation Comme nts TRANSFERRIN (test code = 4936) 315 MG/DL Henry ContrerasLIPID [id number] 00:00:00* Test Item Value Reference Range Interpretation Comme nts CHOLESTEROL (test code = 2210) 191 MG/DL TRIGLYCERIDES (test code = 2232) 89 MG/DL HDL CHOLESTEROL (test code = 2220) 74 MG/DL CALC LDL CHOL (test code = 7) 99 MG/DL RISK RATIO LDL/HDL (test cod e = 2238) 1.34 RATIO Henry ContrerasCOMPREHENSIVE METABOLIC [id number] 00:00:00* Test Item Value Reference Range Interpretation Comme nts GLUCOSE (test code = 7) 92 MG/DL BUN (test code = 2208) 15 MG/DL CREATININE (test code = 2214) 0.65 MG/DL eGFR (2020 CKD-EPI) (test code = 89180) 108 ML/MIN/1.73 CALC BUN/CREAT (test code = [...] ContrerasIRON BINDING CAPACITY AND IRON AND % [id number] 00:00:00* Test Item Value Reference Range Interpretation Comme nts IRON, SERUM (test code = 2222) 51 UG/DL UNSATURATED IBC (test code = 22891) 356 UG/DL CALC TOTAL IBC (test code = 207) 407 UG/DL CALC % IRON SAT (test code = 207) 13 % Henry [id number] 00:00:00* Test Item Value Reference Range Interpretation Comme nts FERRITIN (test code = 2075) 20 NG/ML Henry [id number] 00:00:00* Test Item Value Reference Range Interpretation Comme nts TRANSFERRIN (test code = 4936) 315 MG/DL Henry ContrerasHEMOGLOBIN [id number] 03:08:40* Test Item Value Reference Range Interpretation Comme nts HEMOGLOBIN A1c (test code = 19869) 5.5 % 4.2-5.6 CBC W/AUTO DIFF WITH [id number] 02:29:36* Test Item Value Reference Range Interpretation [...] 0.00-0.10 ABS NUCLEATED RBCS (test code = 75119) 0.00 K/UL 0.00-0.11 CBC W/AUTO [id number] 00:00:00* Test Item Value Reference Range Interpretation [...] ABS NUCLEATED RBCS (test cod e = 10614) 0.00 K/UL Henry Quiles AustinHEMOGLOBIN [id number] 00:00:00* Test Item Value Reference Range Interpretation Comme nts HEMOGLOBIN A1c (test code = 71320) 5.5 % Henry ContrerasCBC W/AUTO [id number] 00:00:00* Test Item Value Reference Range Interpretation [...] ABS NUCLEATED RBCS (test cod e = 28289) 0.00 K/UL Henry Quiles AustinHEMOGLOBIN [id number] 00:00:00* Test Item Value Reference Range Interpretation Comme nts HEMOGLOBIN A1c (test code = 37452) 5.5 % Henry ContrerasCBC W/AUTO [id number] 00:00:00* Test Item Value Reference Range Interpretation [...] ABS NUCLEATED RBCS (test cod e = 11239) 0.00 K/UL Henry ContrerasHEMOGLOBIN [id number] 00:00:00* Test Item Value Reference Range Interpretation Comme nts HEMOGLOBIN A1c (test code = 50277) 5.5 % Henry ContrerasDRUGS OF [id number] 05:03:00* Test Item Value Reference Range Interpretation [...] 200 ng/mL Opiates 300 ng/mL URINALYSIS WITH [id number] 04:56:00* Test Item Value Reference Range Interpretation [...] (test code = USPERM) /HPF NONE URINE [id number] 04:53:00* Test Item Value Reference Range Interpretation [...] attention to other clinical and epidemiological data [id number] 16:00:00* Test Item Value Reference Range Interpretation Comme nts SALICYLATE (test code = 94B) <3.0 mg/dL 15.0-30.0 L LIVER [id number] 15:49:00* Test Item Value Reference Range Interpretation [...] code = 31A) <7 IU/L 10-49 L [id number] 15:48:00* Test Item Value Reference Range Interpretation [...] to interpret this result as normal/abnormal. 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 Old healed fractures of the distal tibia and fibular noted.Soft tissues: Unremarkable.IMPRESSION: No acute findings.Electronically signed by: Nikko Santiago MD 11/04/2022 3:10 PM CDT [id number] BEDSIDE [id number] 11:51:00* Test Item Value Reference Range Interpretation Comme nts GLUCOSE BEDSIDE TESTING (karen t code = GLUBED) 79 MG/DL 70-119 N GLUCOSE BEDSIDE [id number] 06:23:00* Test Item Value Reference Range Interpretation Comme nts GLUCOSE BEDSIDE TESTING (karen t code = GLUBED) 80 MG/DL 70-119 N BASIC METABOLIC [id number] 05:12:00* Test Item Value Reference Range Interpretation [...] 2.0 <2.0 indicates None DetectedPerformed At: [facility] [address] [id number] Michael Reeves MD Ph:[phone] GLUCOSE BEDSIDE [id number] 19:51:00* Test Item Value Reference Range Interpretation Comme nts GLUCOSE BEDSIDE TESTING (karen t code = GLUBED) 129 MG/DL 70-119 H OSMOLALITY [id number] 17:56:00* Test Item Value Reference Range Interpretation Comme nts OSMOLALITY SERUM (test code = OSMO) 269 mOsm/kg 275-300 L THYROID STIMULATING [id number] 17:56:00* Test Item Value Reference Range Interpretation Comme nts THYROID STIMULATING HORMONE (test code = TSH) 4.190 mc IU/ML 0.340-4.820 N GLUCOSE BEDSIDE [id number] 15:49:00* Test Item Value Reference Range Interpretation [...] code = VALP) 37.5 mcG/ML 50.0-100.0 L [id number] 14:26:00* Test Item Value Reference Range Interpretation Comme nts AMMONIA (test code = AMM) 29.0 mcMOL/L 11.0-32.0 N GLUCOSE BEDSIDE [id number] 11:51:00* Test Item Value Reference Range Interpretation Comme nts GLUCOSE BEDSIDE TESTING (karen t code = GLUBED) 88 MG/DL 70-119 N GLYCOSYLATED HEMOGLOBIN (HA1C)2022-09-18 06:53:00* Test Item Value Reference Range Interpretation Comme nts GLYCOSYLATED HEMOGLOBIN (HA1 C) (test code = GLYHGB) 5.2 % IS-A1C 4.5-5.6 N ESTIMATED AVERAGE [id number] 06:53:00* Test Item Value Reference Range Interpretation [...] to interpret this result as normal/abnormal. UR [id number] 21:28:00* Test Item Value Reference Range Interpretation Comme nts UR SODIUM RANDOM (test code = JESUSITA) 93 mmol/L 40-200 N UR POTASSIUM RANDOM (test code = KU) 54.8 mmol/L 25-125 N NO ESTABLISHED NORMAL RANGES FOR RANDOM SPECIMENS. UR CHLORIDE RANDOM (test code = CLU) 164 mmol/L 110-150 H UR OSMOLALITY [id number] 21:28:00* Test Item Value Reference Range Interpretation Comme nts UR OSMOLALITY RANDOM (test c ode = OSMOU) 475 mOsm/kg 100-1400 N CBC W/O [id number] 20:05:00* Test Item Value Reference Range Interpretation [...] = MPV) 9.5 fL 6.8-11.2 N LACTIC [id number] 19:35:00* Test Item Value Reference Range Interpretation Comme nts LACTIC ACID (test code = LACT) 1.0 mmol/L 0.4-2.0 N HCG SERUM [id number] 19:31:00* Test Item Value Reference Range Interpretation Comme nts HCG SERUM QUAL (test code = HCGQL) Negative SCREEN NEG - CT HEAD/BRAIN W/O [id number] 18:59:00 [facility] BHM[facility] JON[facility] : 1975 Sex: F Patient Name: BHUMIKA JONES Unit No: [id number] EXAMS: CPT CODE: [id number] CT HEAD/BRAIN W/O CONT 44241 Location: H3 CT head, conducted on 09/17/22 at 1837 hours COMPARISON EXAMS:Head CT exam of09/17/22 at 00:06 hours TECHNIQUE: CT examination of the brain was performed without contrast on [facility] scanner. Scanning conducted from skull base to [...] Marie(Abner)(CT) CTDI: DLP: Trnscrpt: 09/17/2022 (1858) [email or web address] [facility] NAME: JONES [address] PHYS: Valentina Mattson [place] [address] : 1975 AGE: 47 SEX: F LOC: JOS[facility] 20 PHONE #: [phone] EXAM DATE: 09/17/2022 STATUS: ADM IN FAX #: [phone] RAD #: D/C DT PAGE 1 Signed Report Patient Name: SILAS JONESPCION Unit No: [id number] EXAMS: CPT CODE: [id number] CT HEAD/BRAIN W/O CONT 70527 (Continued) Orig Print D/T: S: 09/17/2022 (1902) DENIZ Lugo NAME: ROBERT[address] PHYS: Valentina Mattson [place] [address] : 1975 AGE: 47 SEX: F LOC: JOSHUA 20 PHONE #: [phone] EXAM DATE: 09/17/2022 STATUS: ADM IN FAX #: [phone] RAD #: D/C DT PAGE 2 Signed ReportURINALYSIS [id number] 16:28:00* Test Item Value Reference Range Interpretation [...] >0 /UL NONE-SQepi DRUGS OF ABUSE SCREEN [id number] 16:28:00* Test Item Value Reference Range Interpretation [...] interpret this result as normal/abnormal. TROP-I HIGH FIEILVCTQZC3595-36-06 16:26:00* Test Item Value Reference Range Interpretation [...] and URLs may vary bymethod. BASIC METABOLIC [id number] 16:25:00* Test Item Value Reference Range Interpretation [...] interpret this result as normal/abnormal. HEPATIC FUNCTION [id number] 16:25:00* Test Item Value Reference Range Interpretation [...] ode = CK) 92 Unit/L 26-192 N [id number] 16:25:00* Test Item Value Reference Range Interpretation Comme nts LIPASE (test code = LIP) 57 Unit/L 114-286 L - CT HEAD/BRAIN W/O [id number] 00:32:00 [facility] BHUM[facility]A JONES : 1975 Sex: F Patient Name: BHUMIKA JONES Unit No: [id number] EXAMS: CPT CODE: [id number] CT HEAD/BRAIN W/O CONT 30425 EXAM: - CT HEAD/BRAIN W/O CONT LOCATION: [...] August CTDI: DLP: Trnscrpt: 09/17/2022 (003) [email or web address] [facility] NAME: BHUMIKA JONES [address] [place] [address] Blvd PHYS: PATCA.02 - Asim Jack [place], [place] [address] : 1975 AGE: 47 SEX: F LOC: GregorioERS PHONE #: [phone] EXAM DATE: 09/16/2022 STATUS: REG ER FAX #: [phone] RAD #: D/C DT PAGE1 Signed Report Patient Name: BHUMIKA JONES Unit No: [id number] EXAMS: CPT CODE: [id number] CT HEAD/BRAIN W/O CONT 56479 (Continued) Orig Print D/T: S: 09/17/2022 (0035) DENIZ Lugo NAME: BHUMIKA JONES [address] [place] [address] PHYS: YASMIN Asim Jack [place]Kim [place] [id number] : 1975 AGE: 47 SEX: F LOC: GregorioERS PHONE #: [phone] EXAM DATE: 09/16/2022 STATUS: REG ER FAX #: [phone] RAD #: D/C DT PAGE 2 Signed ReportTROP-I HIGH [id number] 00:13:00* Test Item Value Reference Range Interpretation [...] and URLs may vary bymethod. COMPREHENSIVE METABOLIC [id number] 00:11:00* Test Item Value Reference Range Interpretation [...] interpret this result as normal/abnormal. CBC W/AUTO [id number] 23:59:00* Test Item Value Reference Range Interpretation [...] K/mm3 0.0-0.05 N - XR CHEST 1 [id number] 23:34:00 [facility] Refugio: BHUMIKA JONES : 1975 [place]: [place]: St: PRE -- Patient Name: BHUMIKA JONES Unit No: [id number] EXAMS: CPT CODE: [id number] XR CHEST 1 V 64597 EXAMINATION: - XR CHEST 1 V CLINICAL [...] By: NadiyaJH12 Orig Print D/T: S: 09/16/2022 (6307) DENIZ Lugo NAME: SILAS JONESPCION [address] [place] [address] Bl PHYS: PATCA.02 - Asim Jack MD, [place] [address] : 1975 AGE: 47 SEX: F LOC: B.ERS PHONE #: [phone] EXAM DATE: 09/16/2022 STATUS: PRE ER FAX #: [phone] RAD NO: DC Dt: PAGE 1 Signed ReportCARBAMAZEPINE (TEGRETOL) 2022-09-15 06:12:00* Test Item Value Reference Range Interpretation Comme nts CARBAMAZEPINE (TEGRETOL) (test code = CARB) 1.5 ug/mL 4.0-12.0 L In conjunction w ith other antiepileptic drugs Therapeutic 4.0 - 8.0 Toxicity 9.0 - 12.0 Carbamazepine alone Therapeutic 8.0 - 12.0 Detection Limit = 2.0 <2.0 indicates None DetectedPerformed At: [facility] [address] [place], [place] [id number] Michael Reeves MD Ph:[phone] VALPROIC ACID (DEPAKENE)2022-09-15 06:12:00* Test Item Value Reference Range Interpretation Comme nts VALPROIC ACID (DEPAKENE) (te st code = VALP) 80.6 mcG/ML 50.0-100.0 N COMPREHENSIVE METABOLIC [id number] 06:00:00* Test Item Value Reference Range Interpretation [...] interpret this result as normal/abnormal. CBC W/AUTO [id number] 05:37:00* Test Item Value Reference Range Interpretation [...] NRBC#) 0.00 K/mm3 0.0-0.05 N GLUCOSE BEDSIDE [id number] 20:03:00* Test Item Value Reference Range Interpretation Comme nts GLUCOSE BEDSIDE TESTING (karen t code = GLUBED) 117 MG/DL 70-119 N DRUGS OF ABUSE SCREEN [id number] 11:42:00* Test Item Value Reference Range Interpretation [...] result as normal/abnormal. - CT HEAD/BRAIN W/O [id number] 11:37:00 [facility] BHUM[facility] JON[facility] : 1975 Sex: F Patient Name: BHUMIKA JONES Unit No: [id number] EXAMS: CPT CODE: [id number] CT HEAD/BRAIN W/O CONT 13276 EXAMINATION: - CT HEAD/BRAIN W/O CONT COMPARISON: None HISTORY: Seizure LOCATION CODE: [id number]: CT of the Brain without contrast. Axial [...] MD; Jim Jaimes MD Dictated Date/Time: 09/14/2022 (9780) Technologist: ASUNCION CASTELLANO CTDI: DLP: Trnscrpt: 09/14/2022 (9657) [email or web address] DENIZ Lugo NAME: BHUMIKA JONES [facility] PHYS: Vladimir Menchaca MD [address] [place] [address] : 1975 AGE: 47 SEX: Etta [place] [address] LOC: NEHA 10 PHONE #: [phone] EXAM DATE: 09/14/2022 STATUS: ADM IN FAX #: [phone] RAD #: D/C DT PAGE 1 Signed Report Patient Name: BHUMIKA JONES Unit No: [id number] EXAMS: CPT CODE: [id number] CT HEAD/BRAIN W/O CONT 33883 (Continued) Orig Print D/T: S: 09/14/2022 (1140) DENIZ Lugo NAME: BHUMIKA JONES [facility] PHYS: Vladimir Menchaca MD [address] [place] [address] : 1975 AGE: 47 SEX: F [place] [address] LOC: NEHA 10 PHONE #: [phone] EXAM DATE: 09/14/2022 STATUS: ADM IN FAX #: [phone] RAD #: D/C DT PAGE 2 Signed Report PT AND [id number] 06:51:00* Test Item Value Reference Range Interpretation [...] AVOIDED DUE TO POSSIBLE HEPARINCONTAMINATION HCG SERUM [id number] 06:51:00* Test Item Value Reference Range Interpretation [...] CK) 268 Unit/L 26-192 H CBC W/AUTO [id number] 03:43:00* Test Item Value Reference Range Interpretation [...] = NRBC#) 0.00 K/mm3 0.0-0.05 N URINALYSIS JQTIUWGB8875-07-39 03:41:00* Test Item Value Reference Range Interpretation [...] RARE /LPF NONE - XR CHEST 2 [id number] 02:06:00 [facility] BHUM[facility]A JONES : 1975 Sex: F FAX: Suleman Carvalho RUTH [phone] [place]: E St: REG Patient Name: BHUMIKA JONES Unit No: [id number] EXAMS: CPT CODE: [id number] XR CHEST 2 V 59537 EXAM: - XR CHEST 2 V HISTORY: [...] S: 09/14/2022 (020) DENIZ Lugo NAME: ROBERT[address] PHYS: GISEL - Deven,Suleman Lugo, [place] [address] : 1975 AGE: 47 SEX: F LOC: MARCOS PHONE #: [phone] EXAM DATE: 09/14/2022 STATUS: REG ERFAX #: [phone] RAD NO: DC Dt: PAGE 1 Signed ReportCOMPREHENSIVE METABOLIC [id number] 12:49:00* Test Item Value Reference Range Interpretation [...] used to interpret this result as normal/abnormal. OSOGQUSXR7100-25-34 12:49:00* Test Item Value Reference Range Interpretation Comme nts MAGNESIUM (test code = MAG) 1.7 MG/DL 1.6-2.6 N CBC W/AUTO [id number] 12:36:00* Test Item Value Reference Range Interpretation [...] RARE /LPF NONE DRUGS OF ABUSE SCREEN [id number] 00:33:00* Test Item Value Reference Range Interpretation [...] 300 ng/mL UA RFLX MICR CULT IF [id number] 00:30:00* Test Item Value Reference Range Interpretation [...] culture: Suprapubic PainSpecimen Description: CLEAN CATCHBASIC METABOLIC [id number] 00:18:00* Test Item Value Reference Range Interpretation [...] 8.9 mg/dl 8.0-10.5 N HEPATIC FUNCTION PANEL [id number] 00:18:00* Test Item Value Reference Range Interpretation [...] ALKP) 113 Units/L 50.0-136.0 N HCG SERUM [id number] 00:18:00* Test Item Value Reference Range Interpretation Comme nts HCG SERUM QUAL (test code = HCGQL) NEGATIVE NEGATIVE [id number] 00:18:00* Test Item Value Reference Range Interpretation Comme nts ALCOHOL (test code = ALC) 0.00 gm/dL 0.00-0.00 N ETHYL ALCOHOL MIRELLA HARRELL - INTERPRETATION: 0.050 GM/DL - NOT INTOXICATED 0.100 GM/DL - INTOXICATED 0.350-0.450 GM/DL - SEVERELY INTOXICATED 0.550 GM/DL- FATAL INTOXICATION Coronavirus 2019 nCoV Ntqnesg7182-28-51 00:09:00* Test Item Value Reference Range Interpretation Comme nts Coronavirus 2019 nCoV Bedside (test code = [id number]) Negative NEGATIVE Negative results should be treated as presumptive and ifinconsistent with clinical signs and symptoms, or necessaryfor patient management, should be tested with an alternativemolecular assay. Negative results do not preclude KTRB-EjF-2yqhkhzqnx and should not be used as the sole basis forpatient management decisions. Negative results should beconsidered in the context of a patient's recent exposures,history, presence of clinical signs and symptoms consistentwith COVID-19. CBC W/AUTO [id number] 23:58:00* Test Item Value Reference Range Interpretation [...] X10 3uL 0.00-0.01 N COMP. METABOLIC PANEL (76154)2022-09-07 02:12:41* Test Item Value Reference Range Interpretation Comme nts NA (test code = 9575341829) 133 mmol/L 135-145 L K (test code = 1972635607) 4.4 mmol/L 3.5-5.0 CL (test code = 0528751785) 102 mmol/L 98-108 CO2 TOTAL (test code = 3569728870) 25 mmol/L 23-31 AGAP (test code = 7790315070) 6 2-16 BUN (test code = 5054050219) 22 mg/dL 7-23 GLUCOSE (test code = 6987938595) 97 mg/dL 70-110 CREATININE (test code = 4744030227) 0.40 mg/dL 0.50-1.04 L TOTAL BILI (test code = 1854411088) 0.3 mg/dL 0.1-1.1 CALCIUM (test code = 4334901312) 8.9 mg/dL 8.6-10.6 T PROTEIN (test code = 8696033054) 7.7 g/dL 6.3-8.2 ALBUMIN (test code = 3706863066) 4.0 g/dL 3.5-5.0 ALK PHOS (test code = 5517353693) 104 U/L 34-122 ALTv (test code = 1742-6) 15 U/L 5-35 AST(SGOT) (test code = 1080229318) 22 U/L 13-40 eGFR (test code = 9507703201) 170.4 mL/min/1.73m2 HANNAH (test code = HANNAH) [...] imaging tests). Lab Interpretation (test code = 17786-0) Abnormal [facility] WITH [id number] 02:01:20* Test Item Value Reference Range Interpretation Comme nts WBC (test code = 6690-2) 6.17 See_Comment [Automated [employer] The system which generated this result transmitted reference range: 4.30 - 11.10 10*3/?L. The reference range was not used to interpret this result as normal/abnormal. RBC (test code = 789-8) 3.73 See_Comment L [[employer] The system which generated this result transmitted [...] 32.9 g/dL 31.6-35.1 RDW-SD (test code = 21422-4) 48.1 fL 39.0-49.9 RDW-CV (test code = 788-0) 14.7 % 12.0-15.5 PLT (test code = 777-3) 272 See_Comment [Automated messa ge] The system which generated this result transmitted reference range: 166 - 358 10*3/?L. The reference range was not used to interpret this result as normal/abnormal. MPV (test code = 48779-3) 9.6 fL 9.5-12.9 NRBC/100 WBC (test code = 6763153162) 0.0 See_Comment [Automated [employer] ssage] The system which generated this result transmitted reference range: 0.0 - 10.0 /100 WBCs. The reference range was not used to interpret this result as normal/abnormal. NRBC x10^3 (test code = 2869030926) See_Comment [Automated [employer]] The system which generated this result transmitted reference range: 10*3/?L. The reference range was not used to interpret this result as normal/abnormal. GRAN MAT (NEUT) % (test code = 770-8) 42.2 % IMM GRAN % (test code = 9672144249) 0.20 % LYMPH % (test code = 736-9) 38.2 % MONO % (test code = 5905-5) 12.6 % EOS % (test code = 713-8) 5.8 % BASO % (test code = 706-2) 1.0 % GRAN MAT x10^3(ANC) (test code = 3535328619) 2.60 10*3/uL 1.88-7.09 IMM GRAN x10^3 (test code = 0846035188) 0.00-0.06 LYMPH x10^3 (test code = 731-0) 2.36 10*3/uL 1.32-3.29 MONO x10^3 (test code = 742-7) 0.78 10*3/uL 0.33-0.92 EOS x10^3 (test code = 711-2) 0.36 10*3/uL 0.03-0.39 BASO x10^3 (test code = 704-7) 0.06 10*3/uL 0.01-0.07 Lab Interpretation (test code = 16654-3) [facility]normal [facility] by RT-PCR (HIGH RISK) 2020-08-19 00:00:00* Test Item Value Reference Range Interpretation Comme nts SARS-CoV-2 INTERPRETATION (t est code = 94149) NEGATIVE SOURCE (test code = 48701) NOT SPECIFIED Henry Quiles XytmgjTPRT-KnN-2 (COVID-19) by RT-PCR (HIGH RISK)2020-08-19 00:00:00* Test Item Value Reference Range Interpretation Comme nts SARS-CoV-2 INTERPRETATION (t est code = 08786) NEGATIVE SOURCE (test code = 85137) NOT SPECIFIED Henry F MrvsywLNYF-OyD-4 (COVID-19) by RT-PCR (HIGH RISK)2020-08-19 00:00:00* Test Item Value Reference Range Interpretation Comme nts SARS-CoV-2 INTERPRETATION (t est code = 46587) NEGATIVE SOURCE (test code = 37952) NOT SPECIFIED Henry F AustinHPV HIGH RISK WITH GENOTYPE, [id number] 00:00:00* Test Item Value Reference Range Interpretation Comme [facility] HPV HIGH RISK INTERP (test c ode = 43819) NEGATIVE HPV 16 (test code = 55424) NEGATIVE HPV 18 (test code = 40186) NEGATIVE HPV, HR, OTHER GENOTYPES (te st code = 54110) NEGATIVE Henry F AustinPAP TEST, THINPREP, [id number] 00:00:00* Test Item Value Reference Range Interpretation Comme nts SOURCE: (test code = 8001) Cervical/Endocervical SLIDES: (test code = 8011) 1 LMP: (test code = 8021) 06/2017 SPECIMEN ADEQUACY: (test code = 45502) (NOTE) INTERPRETATION: (test code = 29741) NILM/NO EPITH. ABNORMALITY;SEE BELOW CATHODE RAY TUBE ASSEMBLER: (test code = 8101) [place], [place](ASCP) IAC LOCATION: (test code = 20351) (NOTE) CPT: (test code = 8140) (NOTE) Henry Quiles AustinHPV HIGH RISK WITH GENOTYPE, [id number] 00:00:00* Test Item Value Reference Range Interpretation Comme nts HPV HIGH RISK INTERP (test c ode = 92609) NEGATIVE HPV 16 (test code = 83579) NEGATIVE HPV 18 (test code = 98391) NEGATIVE HPV, HR, OTHER GENOTYPES (te st code = 99885) NEGATIVE Henry Quiles AustinPAP TEST, THINPREP, [id number] 00:00:00* Test Item Value Reference Range Interpretation Comme nts SOURCE: (test code = 8001) Cervical/Endocervical SLIDES: (test code = 8011) 1 LMP: (test code = 8021) 06/2017 SPECIMEN ADEQUACY: (test code = 42118) (NOTE) INTERPRETATION: (test code = 06367) NILM/NO EPITH. ABNORMALITY;SEE BELOW CATHODE RAY TUBE ASSEMBLER: (test code = 8101) [place], [place](ASCP) IAC LOCATION: (test code = 49097) (NOTE) CPT: (test code = 8140) (NOTE) Henry Quiles AustinHPV HIGH RISK WITH GENOTYPE, [id number] 00:00:00* Test Item Value Reference Range Interpretation Comme nts HPV HIGH RISK INTERP (test c ode = 89947) NEGATIVE HPV 16 (test code = 65295) NEGATIVE HPV 18 (test code = 32177) NEGATIVE HPV, HR, OTHER GENOTYPES (te st code = 31476) NEGATIVE Henry ContrerasPAP TEST, THINPREP, [id number] 00:00:00* Test Item Value Reference Range Interpretation Comme nts SOURCE: (test code = 8001) Cervical/Endocervical SLIDES: (test code = 8011) 1 LMP: (test code = 8021) 06/2017 SPECIMEN ADEQUACY: (test code = 69647) (NOTE) INTERPRETATION: (test code = 08513) NILM/NO EPITH. ABNORMALITY;SEE BELOW CATHODE RAY TUBE ASSEMBLER: (test code = 8101) [facility] IAC LOCATION: (test code = 23741) (NOTE) CPT: (test code = 8140) (NOTE) Henry ContrerasCT HEAD WO [id number] 22:34:12Impression: 1. ?No acute intracranial process. 2. [...] he patient. Please correlate with history and physicalexamination.[facility]ville[facility] CERVICAL SPINE 2 [id number] 22:29:40No acute osseous abnormality. Preliminary Report Dictated [...] reviewed this study and agree with theabove report.[facility] StephenvilleCB WITH KKWKIFPJHBIJ0226-49-98 21:46:00* Test Item Value Reference Range Interpretation [...] 32.2 g/dL 31.6-35.1 RDW-SD (test code = 30272-5) 45.1 fL 39-49.9 RDW-CV (test code = 788-0) 14.6 % 12-15.5 PLT (test code = 777-3) See_Comment L [Automated messa ge] The system which generated this result transmitted reference range: 166 - 358 10*3/?L. The reference range was not used to interpret this result as normal/abnormal. MPV (test code = 11817-5) 9.0 fL 9.5-12.9 L NRBC/100 WBC (test code = 3532218846) See_Comment [Automated me ssage] The system which generated this result transmitted reference range: 0.0 - 10.0 /100 WBCs. The reference range was not used to interpret this result as normal/abnormal. NRBC x10^3 (test code = 2108213911) <0.01 See_Comment [Automated messa ge] The system which generated this result transmitted reference range: 10*3/?L. The reference range was not used to interpret this result as normal/abnormal. GRAN MAT (NEUT) % (test code = 770-8) 51.3 % IMM GRAN % (test code = 4089756182) 0.40 % LYMPH % (test code = 736-9) 24.4 % MONO % (test code = 5905-5) 23.1 % EOS % (test code = 713-8) 0.4 % BASO % (test code = 706-2) 0.4 % GRAN MAT x10^3(ANC) (test code = 6285504126) 2.48 10*3/uL 1.88-7.09 IMM GRAN x10^3 (test code = 5456861878) <0.03 0-0.06 LYMPH x10^3 (test code = 731-0) 1.18 10*3/uL 1.32-3.29 L MONO x10^3 (test code = 742-7) 1.12 10*3/uL 0.33-0.92 H EOS x10^3 (test code = 711-2) <0.03 0.03-0.39 L BASO x10^3 (test code = 704-7) <0.03 0.01-0.07 Lab Interpretation (test code = 27743-9) Abnormal [facility] CERVICAL SPINE 2 [id number] 03:28:03No acute osseous abnormality. Preliminary Report Dictated by Resident: Branodn Cervantes MD., have reviewed this study and [...] and agree withthe above report. [facility] StephenvilleValproic Acid Rlnlj1551-82-08 08:03:22* Test Item Value Reference Range Interpretation Comme nts Valproic Acid Level (test co de = Valproic Acid Level) 57.6 ug/mL(g) 50.0-100.0 Hemoglobin [id number] 09:36:00* Test Item Value Reference Range Interpretation Comme nts Hemoglobin A1c (test code = Hemoglobin A1c) 5.0 % 4.8-5.9 Non Diabetic 4.8-5.9%Diabetic <7.0% CT Shoulder w/o Contrast [id number] 16:49:13Patient: BHUMIKA JONES Date/Time01/09/2019 16:14 CDTReason for [...] Adam FSigned (Electronic Signature): 01/09/2019 4:49 pmRPR Wovltdccddx5487-71-24 21:33:20* Test Item Value Reference Range Interpretation [...] 04-23-2020 N XR Shoulder Complete 2+ Views Cjed1100-60-59 15:41:25Patient: BHUMIKA JONES Date/Time01/07/2019 15:25 CDTReason for [...] CSigned (Electronic Signature): 01/07/2019 3:41 pmThyroid Stimulating Ppzplue4494-59-62 03:07:04* Test Item Value Reference Range Interpretation Comme nts TSH (test code = TSH) 9.650 mIU/mL 0.270-4.200 H Lipid Cwhth0621-53-34 03:07:03* Test Item Value Reference Range Interpretation [...] is LDL/HDL Ratio=LDL Calc/HDL Chol HCG Qualitative Glrgy7931-62-34 02:33:13* Test Item Value Reference Range Interpretation Comme nts HCG, Serum Qual (test code = HCG, Serum Qual) Negative Lot # (test code = Lot #) [id number] N Expiration Dt (test code = Expiration Dt) 2020-04-23 N Neg Control (test code = Neg Control) Negative Pos Control (test code = Pos Control) Positive Internal QC (test code = Int ernal QC) Acceptable Drugs of Abuse Urine 50965-14-18 18:58:11* Test Item Value Reference Range Interpretation [...] = Cannabinoid Screen Ur) Negative Negative Alcohol Rppcu6989-57-22 18:47:34* Test Item Value Reference Range Interpretation Comme nts Ethanol Level (test code = Ethanol Level) <0.00 g/dL 0.00-0.01 Intoxicated 0.08 0 g/dL or more Ethanol Inst (test code = Ethanol Inst) <0 N Comprehensive Metabolic Rwjsz2339-52-68 18:47:33* Test Item Value Reference Range Interpretation [...] A/G Ratio) 1.0 ratio N Comprehensive Metabolic Mrgsf8175-30-26 18:47:33* Test Item Value Reference Range Interpretation [...] the National Kidney Foundation, http://nkdep.nih.gov Comprehensive Metabolic Npmfa0140-53-93 18:47:33* Test Item Value Reference Range Interpretation [...] Kidney Foundation, http://nkdep.nih.gov Complete Blood Count with Cydobkepbtie6041-85-96 18:15:23* Test Item Value Reference Range Interpretation [...] code = IPF) 0 % N Automated Tgsjrybhpuah6649-06-81 18:15:23* Test Item Value Reference Range Interpretation Comme nts Neutro Auto (test code = Sunny tro Auto) 42.1 % 36.0-70.0 Lymph Auto (test code = Lymph Auto) 40.0 % 12.0-44.0 Sullivan Auto (test code = Sullivan Auto) 12.2 % 0.0-11.0 H Eos, Auto (test code = Eos, Auto) 4.9 % 0.0-7.0 Basophil Auto (test code = B asophil Auto) 0.6 % 0.0-2.0 Neutro Absolute (test code = Neutro Absolute) 2.2 x10 1.6-7.4 Lymph Absolute (test code = Lymph Absolute) 2.06 x10 .50-4.60 Sullivan Absolute (test code = M richa Absolute) .63 x10 .00-1.20 Eos Absolute (test code = Eo s Absolute) 0.25 x10 0.00-0.74 Baso Absolute (test code = B aso Absolute) 0.03 x10 0.00-0.21 IG Jombl2304-17-13 18:15:23* Test Item Value Reference Range Interpretation Comme nts IG (test code = IG) 0.2 % 0.0-5.0 IG Abs (test code = IG Abs) 0 x10 N VALPROIC OPMQ2675-28-77 00:00:00* Test Item Value Reference Range Interpretation Comme nts VALPROIC ACID (test code = 3025) 69.8 UG/ML Henry Quiles AustinVALPROIC PMQR2935-31-51 00:00:00* Test Item Value Reference Range Interpretation Comme nts VALPROIC ACID (test code = 3025) 69.8 UG/ML Henry Quiles AustinVALPROIC DSLT6649-44-26 00:00:00* Test Item Value Reference Range Interpretation Comme nts VALPROIC ACID (test code = 3025) 69.8 UG/ML Henry Quiles AustinURINE CULTURE, NO [id number] 00:00:00* Test Item Value Reference Range Interpretation Comme nts URINE CULTURE, NO SENS (test code = 12411) SPECIMEN NUMBER: [id number] Henry Quiles AustinURINE CULTURE, NO [id number] 00:00:00* Test Item Value Reference Range Interpretation Comme nts URINE CULTURE, NO SENS (test code = 72483) SPECIMEN NUMBER: [id number] Henry Quiles AustinURINE CULTURE, NO [id number] 00:00:00* Test Item Value Reference Range Interpretation Comme nts URINE CULTURE, NO SENS (test code = 35762) SPECIMEN NUMBER: [id number] Henry Quiles AustinIRON BINDING CAPACITY AND IRON AND % FMOKLQGQHU9297-98-49 00:00:00* Test Item Value Reference Range Interpretation Comme nts IRON, SERUM (test code = 2222) 42 UG/DL UNSATURATED IBC (test code = 12093) 279 UG/DL CALC TOTAL IBC (test code = 7) 321 UG/DL CALC % IRON SAT (test code = 9) 13 % Henry Quiles OionklILIZLBFJ4149-75-52 00:00:00* Test Item Value Reference Range Interpretation Comme nts FERRITIN (test code = 2075) 15 NG/ML Henry Quiles TbtdxlYFWJLYCQQWF3619-12-34 00:00:00* Test Item Value Reference Range Interpretation Comme nts TRANSFERRIN (test code = 4936) 269 MG/DL Henry Quiles AustinFOLIC [id number] 00:00:00* Test Item Value Reference Range Interpretation Comme nts FOLIC ACID (test code = 2695) 5.4 UG/L Henry Quiles AustinIRON BINDING CAPACITY AND IRON AND % FXPRFZFFWZ7854-37-17 00:00:00* Test Item Value Reference Range Interpretation Comme nts IRON, SERUM (test code = 2) 42 UG/DL UNSATURATED IBC (test code = 81245) 279 UG/DL CALC TOTAL IBC (test code = 7) 321 UG/DL CALC % IRON SAT (test code = 9) 13 % Henry Quiles OqpbrnTBTSHGQC3543-53-08 00:00:00* Test Item Value Reference Range Interpretation Comme nts FERRITIN (test code = 2075) 15 NG/ML Henry Quiles VditrxVDPSPJPQNDH4981-58-08 00:00:00* Test Item Value Reference Range Interpretation Comme nts TRANSFERRIN (test code = 4936) 269 MG/DL Henry Quiles AustinFOLIC [id number] 00:00:00* Test Item Value Reference Range Interpretation Comme nts FOLIC ACID (test code = 2695) 5.4 UG/L Henry Quiles AustinIRON BINDING CAPACITY AND IRON AND % [id number] 00:00:00* Test Item Value Reference Range Interpretation Comme nts IRON, SERUM (test code = 2222) 42 UG/DL UNSATURATED IBC (test code = 81324) 279 UG/DL CALC TOTAL IBC (test code = 2077) 321 UG/DL CALC % IRON SAT (test code = 2079) 13 % Henry Quiles [id number] 00:00:00* Test Item Value Reference Range Interpretation Comme nts FERRITIN (test code = 2075) 15 NG/ML Henry Quiles [id number] 00:00:00* Test Item Value Reference Range Interpretation Comme nts TRANSFERRIN (test code = 4936) 269 MG/DL Henry Quiles AustinFOLIC [id number] 00:00:00* Test Item Value Reference Range Interpretation Comme nts FOLIC ACID (test code = 2695) 5.4 UG/L Henry Quiles AustinCULTURE, URINE [ADDED]2018-06-12 00:00:00* Test Item Value Reference Range Interpretation Comme nts CULTURE, URINE (test code = 48356) SPECIMEN NUMBER: [id number] Henry Quiles AustinCULTURE, URINE [ADDED]2018-06-12 00:00:00* Test Item Value Reference Range Interpretation Comme nts CULTURE, URINE (test code = 96749) SPECIMEN NUMBER: [id number] Henry Quiles AustinCULTURE, URINE [ADDED]2018-06-12 00:00:00* Test Item Value Reference Range Interpretation Comme nts CULTURE, URINE (test code = 41001) SPECIMEN NUMBER: [id number] Henry Quiles AustinCBC W/AUTO [id number] 00:00:00* Test Item Value Reference Range Interpretation [...] = 1015) 184 K/UL Henry ContrerasCOMPREHENSIVE METABOLIC [id number] 00:00:00* Test Item Value Reference Range Interpretation Comme nts GLUCOSE (test code = 2217) 86 MG/DL BUN (test code = 2208) 16 MG/DL CREATININE (test code = 2214) 0.45 MG/DL eGFR AMER. (test cod e = 84973) 141 ML/MIN/1.73 eGFR NON- AMER. (test code = 67626) 122 ML/MIN/1.73 CALC BUN/CREAT (test code = [...] code = 2219) 17 U/L Henry ContrerasVALPROIC [id number] 00:00:00* Test Item Value Reference Range Interpretation Comme nts VALPROIC ACID (test code = 3025) 100.9 UG/ML Henry ContrerasCBC W/AUTO [id number] 00:00:00* Test Item Value Reference Range Interpretation [...] = 1015) 184 K/UL Henry ContrerasCOMPREHENSIVE METABOLIC [id number] 00:00:00* Test Item Value Reference Range Interpretation Comme nts GLUCOSE (test code = 2217) 86 MG/DL BUN (test code = 2208) 16 MG/DL CREATININE (test code = 2214) 0.45 MG/DL eGFR AMER. (test cod e = 13112) 141 ML/MIN/1.73 eGFR NON- AMER. (test code = 42541) 122 ML/MIN/1.73 CALC BUN/CREAT (test code = [...] code = 2219) 17 U/L Henry ContrerasVALPROIC [id number] 00:00:00* Test Item Value Reference Range Interpretation Comme nts VALPROIC ACID (test code = 3025) 100.9 UG/ML Henry ContrerasCBC W/AUTO [id number] 00:00:00* Test Item Value Reference Range Interpretation [...] = 1015) 184 K/UL Henry ContrerasCOMPREHENSIVE METABOLIC [id number] 00:00:00* Test Item Value Reference Range Interpretation Comme nts GLUCOSE (test code = 2217) 86 MG/DL BUN (test code = 2208) 16 MG/DL CREATININE (test code = 2214) 0.45 MG/DL eGFR AMER. (test cod e = 05239) 141 ML/MIN/1.73 eGFR NON- AMER. (test code = 19274) 122 ML/MIN/1.73 CALC BUN/CREAT (test code = [...] code = 2219) 17 U/L Henry ContrerasVALPROIC [id number] 00:00:00* Test Item Value Reference Range Interpretation Comme nts VALPROIC ACID (test code = 3025) 100.9 UG/ML Henry ContrerasPAP TEST, THINPREP, [id number] 00:00:00* Test Item Value Reference Range Interpretation Comme nts SOURCE: (test code = 8001) Cervical/Endocervical SLIDES: (test code = 8011) 1 LMP: (test code = 8021) 03/2017 SPECIMEN ADEQUACY: (test code = 35605) (NOTE) INTERPRETATION: (test code = 53395) NO EPITHELIAL ABNORMALITY SEE BELOW CATHODE RAY TUBE ASSEMBLER: (test code = 8101) KANA Merida(ASCP)IAC LOCATION: (test code = 16191) (NOTE) CPT: (test code = 8140) (NOTE) Henry ContrerasHPV HIGH RISK WITH GENOTYPE, [id number] 00:00:00* Test Item Value Reference Range Interpretation Comme nts HPV HIGH RISK INTERP (test c ode = 33739) NEGATIVE HPV 16 (test code = 01412) NEGATIVE HPV 18 (test code = 85154) NEGATIVE HPV, HR, OTHER GENOTYPES (te st code = 45128) NEGATIVE Henry ContrerasPAP TEST, THINPREP, [id number] 00:00:00* Test Item Value Reference Range Interpretation Comme nts SOURCE: (test code = 8001) Cervical/Endocervical SLIDES: (test code = 8011) 1 LMP: (test code = 8021) 03/2017 SPECIMEN ADEQUACY: (test code = 31999) (NOTE) INTERPRETATION: (test code = 94071) NO EPITHELIAL ABNORMALITY SEE BELOW CATHODE RAY TUBE ASSEMBLER: (test code = 8101) KANA Merida(ASCP)IAC LOCATION: (test code = 09726) (NOTE) CPT: (test code = 8140) (NOTE) Henry ContrerasHPV HIGH RISK WITH GENOTYPE, [id number] 00:00:00* Test Item Value Reference Range Interpretation Comme nts HPV HIGH RISK INTERP (test c ode = 48608) NEGATIVE HPV 16 (test code = 34994) NEGATIVE HPV 18 (test code = 29022) NEGATIVE HPV, HR, OTHER GENOTYPES (te st code = 36588) NEGATIVE Henry ContrerasPAP TEST, THINPREP, [id number] 00:00:00* Test Item Value Reference Range Interpretation Comme nts SOURCE: (test code = 8001) Cervical/Endocervical SLIDES: (test code = 8011) 1 LMP: (test code = 8021) 03/2017 SPECIMEN ADEQUACY: (test code = 30682) (NOTE) INTERPRETATION: (test code = 48721) NO EPITHELIAL ABNORMALITY SEE BELOW CATHODE RAY TUBE ASSEMBLER: (test code = 8101) KANA Merida(ASCP)IAC LOCATION: (test code = 18596) (NOTE) CPT: (test code = 8140) (NOTE) Henry ContrerasHPV HIGH RISK WITH GENOTYPE, [id number] 00:00:00* Test Item Value Reference Range Interpretation Comme nts HPV HIGH RISK INTERP (test c ode = 18814) NEGATIVE HPV 16 (test code = 66887) NEGATIVE HPV 18 (test code = 16353) NEGATIVE HPV, HR, OTHER GENOTYPES (te st code = 46242) NEGATIVE Henry ContrerasHIV AB/AG COMBO RFLX [id number] 00:00:00* Test Item Value Reference Range Interpretation Comme nts HIV 1/2 4TH GEN, RFLX CONF ( test code = 3514) NON-REACTIVE Henry Quiles AustinGC AND CHLAMYDIA AMPLIFIED, [id number] 00:00:00* Test Item Value Reference Range Interpretation Comme nts GONORRHEA, TMA (test code = 56244) NEGATIVE CHLAMYDIA, TMA (test code = 94451) NEGATIVE Henry Quiles AustinGC AND CHLAMYDIA AMPLIFIED, [id number] 00:00:00* Test Item Value Reference Range Interpretation Comme nts GONORRHEA, TMA (test code = 71912) NEGATIVE CHLAMYDIA, TMA (test code = 20745) NEGATIVE Henry ContrerasHIV AB/AG COMBO RFLX [id number] 00:00:00* Test Item Value Reference Range Interpretation Comme nts HIV 1/2 4TH GEN, RFLX CONF ( test code = 3514) NON-REACTIVE Henry ContrerasGC AND CHLAMYDIA AMPLIFIED, [id number] 00:00:00* Test Item Value Reference Range Interpretation Comme nts GONORRHEA, TMA (test code = 17160) NEGATIVE CHLAMYDIA, TMA (test code = 31346) NEGATIVE Henry ContrerasHIV AB/AG COMBO RFLX [id number] 00:00:00* Test Item Value Reference Range Interpretation Comme nts HIV 1/2 4TH GEN, RFLX CONF ( test code = 3514) NON-REACTIVE Henry ContrerasLIPID [id number] 00:00:00* Test Item Value Reference Range Interpretation Comme nts CHOLESTEROL (test code = 2210) 186 MG/DL TRIGLYCERIDES (test code = 2232) 131 MG/DL HDL CHOLESTEROL (test code = 2220) 67 MG/DL CALC LDL CHOL (test code = 2237) 93 MG/DL RISK RATIO LDL/HDL (test cod e = 2238) 1.39 RATIO Henry ContrerasCBC W/AUTO [id number] 00:00:00* Test Item Value Reference Range Interpretation [...] code = 1015) 152 K/UL Henry ContrerasHEMOGLOBIN [id number] 00:00:00* Test Item Value Reference Range Interpretation Comme shaina HEMOGLOBIN A1c (test code = 15644) 5.2 % Henry [id number] 00:00:00* Test Item Value Reference Range Interpretation Comme nts TSH (test code = 2821) 2.020 UIU/ML Henry ContrerasCOMPREHENSIVE METABOLIC [id number] 00:00:00* Test Item Value Reference Range Interpretation Comme nts GLUCOSE (test code = 2217) 90 MG/DL BUN (test code = 2208) 21 MG/DL CREATININE (test code = 2214) 0.42 MG/DL eGFR AMER. (test cod e = 67264) 145 ML/MIN/1.73 eGFR NON- AMER. (test code = 03389) 126 ML/MIN/1.73 CALC BUN/CREAT (test code = [...] code = 2219) <5 U/L Henry ContrerasLIPID [id number] 00:00:00* Test Item Value Reference Range Interpretation Comme nts CHOLESTEROL (test code = 2210) 186 MG/DL TRIGLYCERIDES (test code = 2232) 131 MG/DL HDL CHOLESTEROL (test code = 2220) 67 MG/DL CALC LDL CHOL (test code = 2237) 93 MG/DL RISK RATIO LDL/HDL (test cod e = 2238) 1.39 RATIO Henry ContrerasCBC W/AUTO [id number] 00:00:00* Test Item Value Reference Range Interpretation [...] code = 1015) 152 K/UL Henry ContrerasHEMOGLOBIN [id number] 00:00:00* Test Item Value Reference Range Interpretation Comme nts HEMOGLOBIN A1c (test code = 82321) 5.2 % Henry [id number] 00:00:00* Test Item Value Reference Range Interpretation Comme nts TSH (test code = 2821) 2.020 UIU/ML Henry ContrerasCOMPREHENSIVE METABOLIC [id number] 00:00:00* Test Item Value Reference Range Interpretation Comme nts GLUCOSE (test code = 2217) 90 MG/DL BUN (test code = 2208) 21 MG/DL CREATININE (test code = 2214) 0.42 MG/DL eGFR AMER. (test cod e = 76630) 145 ML/MIN/1.73 eGFR NON- AMER. (test code = 44536) 126 ML/MIN/1.73 CALC BUN/CREAT (test code = [...] code = 2219) <5 U/L Henry ContrerasLIPID [id number] 00:00:00* Test Item Value Reference Range Interpretation Comme nts CHOLESTEROL (test code = 2210) 186 MG/DL TRIGLYCERIDES (test code = 2232) 131 MG/DL HDL CHOLESTEROL (test code = 2220) 67 MG/DL CALC LDL CHOL (test code = 2237) 93 MG/DL RISK RATIO LDL/HDL (test cod e = 2238) 1.39 RATIO Henry ContrerasCBC W/AUTO [id number] 00:00:00* Test Item Value Reference Range Interpretation [...] code = 1015) 152 K/UL Henry ContrerasHEMOGLOBIN [id number] 00:00:00* Test Item Value Reference Range Interpretation Comme nts HEMOGLOBIN A1c (test code = 79279) 5.2 % Henry [id number] 00:00:00* Test Item Value Reference Range Interpretation Comme nts TSH (test code = 2821) 2.020 UIU/ML Henry ContrerasCOMPREHENSIVE METABOLIC [id number] 00:00:00* Test Item Value Reference Range Interpretation Comme nts GLUCOSE (test code = 2217) 90 MG/DL BUN (test code = 220) 21 MG/DL CREATININE (test code = 2214) 0.42 MG/DL eGFR AMER. (test cod e = 81571) 145 ML/MIN/1.73 eGFR NON- AMER. (test code = 60263) 126 ML/MIN/1.73 CALC BUN/CREAT (test code = 2235) 50 RATIO SODIUM (test code = 223) 139 MEQ/L POTASSIUM (test code = 2228) 4.0 MEQ/L CHLORIDE (test code = 2215) 99 MEQ/L CARBON DIOXIDE (test code = 2206) 24 MEQ/L CALCIUM (test code = 2209) 9.3 MG/DL PROTEIN, TOTAL (test code = 222) 7.1 G/DL ALBUMIN (test code = 2201) [...]
[2024-06-21] MEDS ORDERED: ACETAMINOPHEN 500 MG TAB ONE (17:33)
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
[2024-06-21 18:16] VITALS: BP 137/78; TEMP 96.8; O2SAT 100
== END 2024-06-21 18:01 | disposition home or self-care (01) ==
LOC: ER 17:08
DX: K64.9 Unspecified hemorrhoids (principal)
CPT/HCPCS: 99283

== ENCOUNTER 2024-06-22 12:38 | Emergency (ER) | payer SELFPAY ==
--- OUTSIDE RECORDS SUMMARY | 2024-06-22 12:46 | XMS REPORT | Continuity of Care Document ---
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 Only Doctor Unassigned, Rhine [facility] 1.840.114 350.1.13.10 4.2.7.2.686 [id number] [facility] 2023-07-04 16:48:23 2023-07-04 16:48:23 Outpatient [facility] [id number] Henry Contreras 2023-06-18 10:35:36 2023-06-18 10:35:36 Outpatient [facility] [id number] Henry Contreras 2023-06-05 00:00:00 2023-06-05 00:00:00 Orders Only Doctor Unassigned, Rhine [facility] 1.2.840.114 350.1.13.10 4.2.7.2.686 [id number] [facility] 2023-06-04 16:00:39 2023-06-04 16:00:39 Outpatient [facility] [id number] Henry Quiles [place] 2023-05-24 15:38:52 2023-05-24 15:38:52 Outpatient [facility] [id number] Henry Quiles [place] 2023-05-22 00:00:00 2023-05-22 00:00:00 Letter (Out) Neurology [facility] 1.2.840.114 350.1.13.10 4.2.7.2.686 [id number] [facility] 2023-05-20 00:00:00 2023-05-20 00:00:00 Orders Only Doctor Unassigned, Rhine [facility] 1.2.840.114 350.1.13.10 4.2.7.2.686 [id number] [facility] 2023-05-17 15:07:14 2023-05-17 15:07:14 Outpatient [facility] [id number] Henry Quiles Ben 2023-03-02 12:27:43 2023-03-02 12:27:43 Outpatient [facility] [id number] Henry Quiles Ben 2023-01-09 17:11:26 2023-01-09 17:11:26 Outpatient [facility] [id number] Henry Contreras 2022-11-04 14:04:00 2022-11-05 11:09:00 Emergency JESS FALCON [facility] [id number] [facility] 2022-09-24 12:33:00 2022-09-24 12:51:00 Emergency Heri Snow [facility] 1..114 350.1.13.10 4.2.7.2.686 [id number] [facility] 2022-09-22 00:00:00 2022-09-22 00:00:00 Nurse [facility] 1..114 350.1.13.10 4.2.7.2.686 [id number] [facility] 2022-09-18 10:09:00 2022-09-19 14:28:00 Inpatient EM Marly Mendenhall [facility] OBSE [id number] [facility] 2022-09-16 22:50:00 2022-09-17 01:40:00 Emergency EM Guero, Asim [facility] FABI [id number] [facility] 2022-09-14 14:52:00 2022-09-15 14:00:00 Inpatient EM Vladimir Forbes [facility] TELE [id number] [facility] 2022-09-13 09:34:00 2022-09-13 13:00:00 Emergency EM Brad Woodall [facility] FABI [id number] [facility] 2022-09-10 23:39:00 2022-09-11 11:28:00 Emergency EM Russel Sewell [facility] [id number] [facility] Martín [facility] 2022-09-10 18:57:00 2022-09-10 20:20:00 Emergency Lisa Morfin Whitney [facility] 1.84.114 350.1.13.10 4.2.7.2.686 [id number] [facility] 2022-09-10 18:57:00 2022-09-10 20:20:00 Emergency X [facility] [id number] [facility] 2022-09-09 20:45:00 2022-09-09 22:46:00 Emergency X [facility]DR[facility] [id number] [facility] 2022-09-09 20:45:00 2022-09-09 22:46:00 Emergency Sandrita Key [facility] 1..840.114 350.1.13.10 4.2.7.2.686 [id number] [facility] 2022-09-06 18:09:00 2022-09-07 00:51:00 Emergency X [facility] [id number] [facility] 2022-09-06 18:09:00 2022-09-07 00:51:00 Emergency Tayo Boyd [facility] 1..840.114 350.1.13.10 4.2.7.2.686 [id number] [facility] 2022-08-21 14:11:33 2022-08-21 14:11:33 Outpatient [facility] [id number] Henry Contreras 2022-07-17 15:03:48 2022-07-17 15:03:48 Outpatient [facility] [id number] Henry Quiles Ben 2021-10-02 15:56:00 2021-10-02 19:00:00 Emergency X [facility]ED [facility] [id number] [facility] 2021-10-02 15:56:00 2021-10-02 19:00:00 Emergency Javed Frank [facility] 1..840.114 350.1.13.10 4.2.7.2.686 [id number] [facility] 2021-05-05 13:22:00 2021-05-05 14:48:00 Emergency X [facility]ON [facility] [id number] [facility] 2021-05-05 13:22:00 2021-05-05 14:48:00 Emergency Deon Nunez [facility] 1.2.840.114 350.1.13.10 4.2.7.2.686 [id number] [facility] 2021-05-05 00:00:00 2021-05-05 00:00:00 Orders Only Doctor Unassigned, Rhine [facility] 1.2.840.114 350.1.13.10 4.2.7.2.686 [id number] [facility] 2019-12-15 17:11:56 2019-12-15 18:04:00 [facility] 1.2.840.114 350.1.13.10 4.2.7.2.686 [id number] 2019-12-15 17:11:56 2019-12-15 18:04:00 Emergency Kp Gilliland [facility] 1.2.840.114 350.1.13.10 4.2.7.2.686 [id number] [facility] 2019-12-15 17:11:56 2019-12-15 17:11:56 Emergency X Kp GILLILNAD [facility] [id number] [facility] 2019-10-25 18:31:31 2019-10-25 19:21:00 Emergency Kristin Miller [facility] 1.2.840.114 350.1.13.10 4.2.7.2.686 [id number] 2019-10-25 18:31:31 2019-10-25 19:21:00 Emergency Kristin Miller [facility] 1.2.840.114 350.1.13.10 4.2.7.2.686 [id number] [facility] 2019-10-25 18:31:31 2019-10-25 18:31:31 Emergency X KRISTIN [facility]ILLER [facility] [id number] [facility] 2019-08-13 13:30:00 2019-08-13 14:36:[address] [facility] 1.2.840.114 350.1.13.10 4.2.7.2.686 [id number] [facility] 2019-08-13 13:30:00 2019-08-13 14:36:00 Emergency X FLORIDALMA EVANS [facility] [id number] [facility] 2019-08-13 13:30:00 2019-08-13 14:36:[address] [facility] 1.2.840.114 350.1.13.10 4.2.7.2.686 [id number] 2019-07-22 13:42:11 2019-07-22 19:02:00 Emergency X [facility]ISA [facility] [id number] [facility] 2019-07-22 13:42:11 2019-07-22 19:02:00 Emergency Unknown, Attending Lisa Morfin [facility] 1.2.840.114 350.1.13.10 4.2.7.2.686 [id number] [facility] 2019-07-22 13:42:11 2019-07-22 19:02:00 Emergency Unknown, Attending Lisa Morfin [facility] 1.2.840.114 350.1.13.10 4.2.7.2.686 [id number] 2019-07-13 20:17:19 2019-07-13 21:48:00 Emergency X LEXIE [facility]ENRY [facility] [id number] [facility] 2019-07-13 20:17:19 2019-07-13 21:48:00 Emergency Henry Owen [facility] 1.2.840.114 350.1.13.10 4.2.7.2.686 [id number] [facility] 2019-07-10 14:26:03 2019-07-10 16:33:00 Emergency X DEBBIE [facility] [id number] [facility] 2019-07-10 14:26:03 2019-07-10 16:33:00 Emergency Debbie Payton [facility] 1.2840.114 350.1.13.10 4.2.7.2.686 [id number] [facility] 2019-07-04 19:09:02 2019-07-04 22:51:00 Emergency X LISA [facility]ORFIN [facility] [id number] [facility] 2019-06-30 10:33:08 2019-06-30 13:10:00 Emergency X [facility]ON [facility] [id number] [facility] 2019-05-25 11:58:19 2019-05-25 15:37:00 Emergency X DEON [facility]UNE[facility] [id number] [facility] 2019-04-09 22:29:37 2019-04-09 23:28:00 Emergency X FLORIDALMA EVANS [facility] [id number] [facility] 2019-01-21 18:38:01 2019-01-21 19:59:00 Emergency Le Ramirez [facility] 1.2.840.114 350.1.13.10 4.2.7.2.686 [id number] [facility] 2019-01-21 18:38:01 2019-01-21 19:59:00 Emergency Le Ramirez [facility] 1.2.840.114 350.1.13.10 4.2.7.2.686 [id number] Results Test Description Test Time Test Comments Results Result Co mments Source Henry Daniel [id number] 04:20:00* Test Item Value Reference Range Interpretation Comme nts FT4 (test code = FT4) 1.05 ng/dL 0.78-2.19 T3 [id number] 04:20:00* Test Item Value Reference Range Interpretation Comme nts T3UP (test code = T3UP) 40.9 % 23.5-40.5 H Thyroxine (T4) free index in Serum or [id number] 04:19:00* Test Item Value Reference Range Interpretation Comme nts Thyroxine (T4) free index in Serum or Plasma (test code = 37431-7) 1.05 ng/dL 0.78-2.19 N [facility])Thyroid hormone uptake (T-uptake) in Serum or P 2023-11-24 04:18:00* Test Item Value Reference Range Interpretation Comme nts Thyroid hormone uptake (T-up take) in Serum or Plasma (test code = 19925-3) 40.9 % 23.5-40.5 H [facility])URINE DRUG [id number] 00:43:00* Test Item Value Reference Range Interpretation [...] abuse 5 panel - Urine by Screen [id number] 00:40:00 NegativeNegativeNegativeNegativeNegativeNegativeNegative[facility])[id number] 00:33:00* Test Item Value Reference Range Interpretation [...] /HPF 0-2 Urinalysis panel - Urine by [id number] 00:33:00* Test Item Value Reference Range Interpretation Comme nts Ketones [Presence] in Urine (test code = 24122-2) 15 MG/DL NEG N pH of Urine (test code = 2756-5) 5.5 1 5.0-7.5 N Urobilinogen [Presence] in U rine (test code = 75811-0) 0.2 EU/DL 0.2-1.0 N Specific gravity of Urine (t est code = 2965-2) 1.013 1 1.0-1.025 N Leukocytes [Presence] in Uri ne sediment by Light microscopy (test code = 11330-7) 10 /HPF 0.0-5.0 H Erythrocytes [Presence] in U rine sediment by Light microscopy (test code = 04326-6) 2 /HPF 0.0-2.0 N [facility])VITAMIN [id number] 22:47:00* Test Item Value Reference Range Interpretation Comme nts B12 (test code = B12) 880 pg/mL 239-931 [id number] 22:47:00* Test Item Value Reference Range Interpretation Comme nts FOLATE (test code = FOLATE) 8.9 ng/mL 2.76-20.0 THYROID STIMULATION [id number] 22:47:00* Test Item Value Reference Range Interpretation Comme nts TSH (test code = TSH) 6.62 UIU/ML 0.465-4.68 H Thyrotropin in Serum or [id number] 22:47:00* Test Item Value Reference Range Interpretation Comme nts Thyrotropin in Serum or Plas ma (test code = 77483-5) 6.62 UIU/ML 0.465-4.68 H [facility])Cobalamin (Vitamin B12) [Mass/volume] in Serum 2023-11-23 22:47:00* Test Item Value Reference Range Interpretation Comme nts Cobalamin (Vitamin B12) [Mass/volume] in Serum or Plasma (test code = 2132-9) 880 pg/mL 239.0-931.0 N [facility])Folate [Mass/volume] in Serum or [id number] 22:47:00* Test Item Value Reference Range Interpretation Comme nts Folate [Mass/volume] in Seru m or Plasma (test code = 2284-8) 8.9 ng/mL 2.76-20.0 N [facility])ER SCREEN FOR HIV / 22:46:00* Test Item Value Reference Range Interpretation Comme [facility] HIV 1/2 AB (test code = SCRN HIV) NEGATIVE NEGATIVE This test is us ed for SCREENING purposes only. All reactive results are prelimenary and confirmation results will follow. HIV 1+2 Ab [Units/volume] in [id number] [facility]HEPATITIS C ANTIBODY AAMZTS8519-03-06 22:28:00* Test Item Value Reference Range Interpretation Comme nts SCRN HCV (test code = SCRN HCV) NEGATIVE NEGATIVE Hepatitis C Anti body test is for screening purposes only. All reactives will be confirmed by additional testing. Hepatitis C virus Ab [Presence] in Xccqh3056-29-00 22:27:00[facility])B-HCG QUAL (KIT)2023-11-23 22:01:00* Test Item Value Reference Range Interpretation Comme nts HCGQUAL (test code = HCGQUAL) NEGATIVE NEGATIVE URINE: NEGATIVE = < 20 mIU/ML; POSITIVE= >/= 20 mIU/ML SERUM: NEGATIVE = < 10 mIU/ML; POSITIVE= >/= 10 mIU/ML SOURCE (test code = SOURCE) SERUM HCG INTERNAL POSITIVE CNTRL (test code = HCGIPC) PASS PASS HCG LOT # (test code = UHCGLOT) [id number] HCG EXPIRATION DATE (test code = UHCGEXP) Choriogonadotropin.beta subunit ( keqj1783-23-96 22:01:00* Test Item Value Reference Range Interpretation Comme nts Specimen source [Identifier] of Body fluid (test code = 57232-2) SERUM N Reagent Lot number (test cod e = 61766-1) 1 N [facility])CT HEAD W/O [id number] 22:00:00 [facility] : 1975 Sex: F[address] [address]ZUFSYLEDAD IMAGING REPORTPatient Name: ROBERT, CONCEPTIONDate of Service: 95-16-0339Vfm: 48 Sex: F Order #: [id number] Room: ERSDOB: 1975 X-Ray Number: [id number] Record Number: [id number] Hospital Number: [id number] Physician: LAWRENCE MEJIASOrdering Physician: LAWRENCE MEJIASPROCEDURE: CTHEAD [...] 21:59:03CT Head and Orbit - bilateral WO [id number] 21:59:03 ORDER 1400: CT HEAD W/O CONT (LOINC: 09911-8)ORDER DATE: November 24, 2023 12:50:00 AM [facility]CT ABDOMEN/PELVIS [id number] 21:54:00 [facility] CONCEPTION : 1975 Sex: F[address] [id number] IMAGING REPORTPatient Name: ROBERT, CONCEPTIONDate of Service: 31-31-2584Mff: 48 Sex: F Order #: [id number] Room: ERSDOB: 1975 X-Ray Number: [id number] Record Number: [id number] Hospital Number: [id number] Physician: LAWRENCE MEJIASOrdering Physician: LAWRENCE MEJIASPROCEDURE: CT [...] YUNIOR MCKEON 2023-11-23 21:53:03 CT Abdomen and Viyuan0002-37-34 21:53:03ORDER 1500: CT ABDOMEN/PELVIS WITHOUT (LOINC: 00943-1)ORDER DATE: November 24, 2023 12:50:00 AM [facility])[id number] 21:31:00* Test Item Value Reference Range Interpretation [...] 70-99 Fasting glucos e normal <100 MG/DL- [employer] recommendation CALCIUM (test code = [...] of age is not validated by the tube pusher and may not represent the patients true [...] should be used in the calculation". CREATINE [id number] 21:31:00* Test Item Value Reference Range Interpretation Comme nts CK (test code = CK) 115 U/L 30-135 BLOOD ALCOHOL (ETOH)2023-11-23 21:31:00* Test Item Value Reference Range Interpretation Comme nts ALCOHOL BLOOD LEVEL (test code = ALC BLD) <10 MG/DL 0-10 Results ar e to be used for medical purposes (treatment) only. Not intended for non medical purposes. Ethanol [Mass/volume] in Cpzft1469-77-46 21:30:00* Test Item Value Reference Range Interpretation Comme nts Ethanol [Mass/volume] in Blo od (test code = 5640-8) <10 0.0-10.0 [facility])Creatine kinase isoenzymes [interpretation] in 2023-11-23 21:30:00* Test Item Value Reference Range Interpretation Comme nts Creatine kinase isoenzymes [interpretation] in Serum or Plasma Narrative (test code = 96117-4) 115 U/L 30.0-135.0 [facility])Comprehensive metabolic 2000 panel - Serum [...] total [Moles/volume] in Blood (test code = 61390-7) 24 MMOL/L 22.0-30.0 N Urea nitrogen [Mass/volume] in Serum or Plasma (test code = 3094-0) 16 MG/DL 7.0-17.0 N Creatinine [Mass/volume] in Blood (test code = 29786-0) 0.6 MG/DL 0.7-1.2 L Glucose [Mass/volume] in Blood (test code = 2339-0) 80 MG/DL 70.0-99.0 N Calcium [Mass/volume] in Serum or Plasma (test code = 61383-7) 10.3 MG/DL 8.4-10.2 H Protein [Mass/volume] in Serum or Plasma (test code = 2885-2) 9.9 G/DL 6.3-8.2 H Albumin [Presence] in Serum or Plasma (test code = 26627-1) 4.7 G/DL 3.5-5.0 N Bilirubin direct and total panel [Mass/volume] - Serum or Plasma (test code = 34191-1) 0.8 MG/DL 0.2-1.3 N Aspartate aminotransferase [Enzymatic [...] 50 percent [- Reported] (test code = 99079-2) 113.0 mL/min/1.73m2 N Anion gap in Serum or Plasma (test code = 55826-5) 13 mmol/L 4.0-12.0 H [facility])[id number] 21:15:00* Test Item Value Reference Range Interpretation [...] 1.2-7.2 CBC W Auto Differential panel - [id number] 21:15:00* Test Item Value Reference Range Interpretation Comme nts Leukocytes other [Identifier ] in Blood by Automated count (test code = 07836-9) 4.5 K/UL 3.5-10.9 N Erythrocytes [#/volume] in B lood (test code = 92886-8) 4.91 M/UL 4.0-5.0 N Hemoglobin A/Hemoglobin.tota l in Blood (test code = 4546-8) 13.8 G/DL 11.5-15.5 N Hematocrit [Volume Fraction] of Blood (test code = 77180-1) 42.4 % 34.0-46.0 N Erythrocyte mean corpuscular volume [Entitic volume] (test code = 97469-8) 86.4 FL 80.0-98.0 N Erythrocyte mean corpuscular hemoglobin [Entitic mass] (test code = 38660-8) 28.1 PG 28.0-32.0 N Erythrocyte mean corpuscular hemoglobin concentration [Mass/volume] (test code = 74930-9) 32.5 G/DL 32.5-36.5 N Erythrocyte distribution wid th [Ratio] (test code = 45289-2) 14.9 % 11.5-14.5 H Platelets panel - Blood by Automated count (test code = 93516-5) 124 K/UL 150.0-450.0 L Platelet mean volume [Entiti c volume] in Blood by Automated count (test code = 82467-3) 10.0 FL 7.4-10.4 N Neutrophils.segmented/100 leukocytes in Blood (test code = 73780-1) 53.3 % 40.0-75.0 N Lymphocytes Variant/100 leuk ocytes in Blood (test code = 27983-9) 33.9 % 24.0-44.0 N Lymphocytes+Monocytes/100 leukocytes in Blood (test code = 4662-3) 10.0 % 0.0-13.0 N Eosinophils [#/volume] in Bl ood (test code = 99933-0) 2.2 % 0.0-4.0 N Basophils [#/volume] in Bloo d (test code = 30673-9) 0.4 % 0.0-2.0 N Immature granulocytes/100 leukocytes in Blood (test code = 73735-7) 0.2 % 0.0-1.0 N Nucleated erythrocytes [#/vo lume] in Blood (test code = 90626-1) 0 /100 WBC N Neutrophils [#/volume] in Bl ood (test code = 18461-1) 2.4 K/UL 1.2-7.2 N [facility] ([place])PAP TEST, THINPREP, [id number] 16:02:24* Test Item Value Reference Range Interpretation Comme nts SOURCE: (test code = 8001) Cervical/Endoce rvical SLIDES: (test code = 8011) 1 LMP: (test code = 8021) SEE NOTE POST MENOPAUSAL SPECIMEN ADEQUACY: (test code = 85175) (NOTE) Satisfactory for evaluation. Endocervical cells/transformation zone component present. INTERPRETATION: (test code = 94482) NILM/NO EPITH. ABNORMALITY;SEE BELOW --- - NEGATIVE FOR INTRAEPITHELIAL LESION OR MALIGNANCY (NILM) ---- RD SCIENTIST : (test code = 8101) Jami Smalls LOCATION: (test code = 83014) (NOTE) Specimens proces sed and interpreted at [facility], [address] [place] [address], , CLIA: [id number] CPT: (test code = 8140) (NOTE) 88829 UNLESS OTH ERWISE INDICATED, COMPUTER AIDED AND RD SCIENTIST SCREENING PERFORMED. The Pap test is a screening test with an inherent, but low probability of error. Your patient should be reminded to consult you immediately if she experiences any suspicious signs or symptoms, regardless of her Pap test result. An alternate report format containing images or consolidated prior Pap history is available as applicable. HPV HIGH RISK WITH GENOTYPE, [id number] 15:53:52* Test Item Value Reference Range Interpretation Comme nts HPV HIGH RISK INTERP (test code = 80701) NEGATIVE NEGATIVE HPV 16 (test code = 95455) NEGATIVE HPV 18 (test code = 94883) NEGATIVE HPV, HR, OTHER GENOTYPES (test code = 54044) NEGATIVE Testing methodol ian is real-time PCR [...] PERFORMED AT [facility] [address] [place] [address] MACHINE STRAW HAT PRESSER: JATIN FELIPE M.D. CLIA NUMBER [id number] [facility] [place] [id number] HPV HIGH RISK WITH GENOTYPE, [id number] 00:00:00* Test Item Value Reference Range Interpretation Comme [facility] HPV HIGH RISK INTERP (test c ode = 29990) NEGATIVE HPV 16 (test code = 40383) NEGATIVE HPV 18 (test code = 01383) NEGATIVE HPV, HR, OTHER GENOTYPES (te st code = 92231) NEGATIVE PDFE (test code = PDFReport) PDF Henry ContrerasPAP TEST, THINPREP, [id number] 00:00:00* Test Item Value Reference Range Interpretation Comme [facility] SOURCE: (test code = 8001) Cervical/Endocervical SLIDES: (test code = 8011) 1 LMP: (test code = 8021) SEE NOTE SPECIMEN ADEQUACY: (test code = 10977) (NOTE) INTERPRETATION: (test code = 34189) NILM/NO EPITH. ABNORMALITY;SEE BELOW RD SCIENTIST: (test code = 8101) Jami Smalls LOCATION: (test code = 15249) (NOTE) CPT: (test code = 8140) (NOTE) Henry ContrerasHPV HIGH RISK WITH GENOTYPE, [id number] 00:00:00* Test Item Value Reference Range Interpretation Comme [facility] HPV HIGH RISK INTERP (test c ode = 43014) NEGATIVE HPV 16 (test code = 00689) NEGATIVE HPV 18 (test code = 47357) NEGATIVE HPV, HR, OTHER GENOTYPES (te st code = 53664) NEGATIVE PDFE (test code = PDFReport) PDF Henry ContrerasPAP TEST, THINPREP, [id number] 00:00:00* Test Item Value Reference Range Interpretation Comme nts SOURCE: (test code = 8001) Cervical/Endocervical SLIDES: (test code = 8011) 1 LMP: (test code = 8021) SEE NOTE SPECIMEN ADEQUACY: (test code = 16008) (NOTE) INTERPRETATION: (test code = 45880) NILM/NO EPITH. ABNORMALITY;SEE BELOW RD SCIENTIST: (test code = 8101) Jami Smalls LOCATION: (test code = 63758) (NOTE) CPT: (test code = 8140) (NOTE) Henry ContrerasHPV HIGH RISK WITH GENOTYPE, [id number] 00:00:00* Test Item Value Reference Range Interpretation Comme nts HPV HIGH RISK INTERP (test c ode = 22612) NEGATIVE HPV 16 (test code = 73247) NEGATIVE HPV 18 (test code = 02279) NEGATIVE HPV, HR, OTHER GENOTYPES (te st code = 71632) NEGATIVE PDFE (test code = PDFReport) PDF Henry ContrerasPAP TEST, THINPREP, [id number] 00:00:00* Test Item Value Reference Range Interpretation Comme nts SOURCE: (test code = 8001) Cervical/Endocervical SLIDES: (test code = 8011) 1 LMP: (test code = 8021) SEE NOTE SPECIMEN ADEQUACY: (test code = 97955) (NOTE) INTERPRETATION: (test code = 43349) NILM/NO EPITH. ABNORMALITY;SEE BELOW RD SCIENTIST: (test code = 8101) Jami Smalls LOCATION: (test code = 17856) (NOTE) CPT: (test code = 8140) (NOTE) Henry ContrerasPAP TEST, THINPREP, IMAGED [ADDED]2023-10-10 00:00:00* Test Item Value Reference Range Interpretation Comme nts SOURCE: (test code = 8001) Unspecified SLIDES: (test code = 8011) 2 LMP: (test code = 8021) NOT GIVEN SPECIMEN ADEQUACY: (test code = 39611) (NOTE) INTERPRETATION: (test code = 19585) UNSATISFACTORY; SEE BELOW OTHER COMMENTS: (test code = 8081) (NOTE) RD SCIENTIST: (test code = 8101) Jose Bustillos QC TECHNOLOGIST: (test code = 8111) RAUL Wilde(ASCP),IAC LOCATION: (test code = 97457) (NOTE) CPT: (test code = 8140) (NOTE) Henry F AustinHPV HIGH RISK IF ASC/LSIL, THINPREP [ADDED]2023-10-10 00:00:00* Test Item Value Reference Range Interpretation Comme nts HPV HIGH RISK IF ASC/LSIL, THINPREP (test code = 81341) CRITERIA NOT MET Henry F AustinPAP TEST, THINPREP, IMAGED [ADDED]2023-10-10 00:00:00* Test Item Value Reference Range Interpretation Comme nts SOURCE: (test code = 8001) Unspecified SLIDES: (test code = 8011) 2 LMP: (test code = 8021) NOT GIVEN SPECIMEN ADEQUACY: (test code = 84777) (NOTE) INTERPRETATION: (test code = 44692) UNSATISFACTORY; SEE BELOW OTHER COMMENTS: (test code = 8081) (NOTE) RD SCIENTIST: (test code = 8101) Jose Bustillos QC TECHNOLOGIST: (test code = 8111) RAUL Wilde(ASCP),IAC LOCATION: (test code = 03219) (NOTE) CPT: (test code = 8140) (NOTE) Henry F AustinHPV HIGH RISK IF ASC/LSIL, THINPREP [ADDED]2023-10-10 00:00:00* Test Item Value Reference Range Interpretation Comme nts HPV HIGH RISK IF ASC/LSIL, THINPREP (test code = 78788) CRITERIA NOT MET Henry F AustinPAP TEST, THINPREP, IMAGED [ADDED]2023-10-10 00:00:00* Test Item Value Reference Range Interpretation Comme nts SOURCE: (test code = 8001) Unspecified SLIDES: (test code = 8011) 2 LMP: (test code = 8021) NOT GIVEN SPECIMEN ADEQUACY: (test code = 97149) (NOTE) INTERPRETATION: (test code = 34769) UNSATISFACTORY; SEE BELOW OTHER COMMENTS: (test code = 8081) (NOTE) RD SCIENTIST: (test code = 8101) Jose Bustillos TECHNOLOGIST: (test code = 8111) Jason Whitman,SCT(ASCP),IAC LOCATION: (test code = 77916) (NOTE) CPT: (test code = 8140) (NOTE) Henry Quiles AustinHPV HIGH RISK IF ASC/LSIL, THINPREP [ADDED]2023-10-10 00:00:00* Test Item Value Reference Range Interpretation Comme nts HPV HIGH RISK IF ASC/LSIL, THINPREP (test code = 63932) CRITERIA NOT MET Henry Quiles AustinGONORRHEA, NAAT, THINPREP [ADDED]2023-10-08 00:00:00* Test Item Value Reference Range Interpretation Comme nts GONORRHEA, NAAT, THINPREP (t est code = 04085) NEGATIVE Henry Quiles AustinCHLAMYDIA, NAAT, THINPREP [ADDED]2023-10-08 00:00:00* Test Item Value Reference Range Interpretation Comme nts CHLAMYDIA, NAAT, THINPREP (t est code = 82715) NEGATIVE PDFE (test code = PDFReport) PDF Henry Quiles AustinGONORRHEA, NAAT, THINPREP [ADDED]2023-10-08 00:00:00* Test Item Value Reference Range Interpretation Comme nts GONORRHEA, NAAT, THINPREP (t est code = 19611) NEGATIVE Henry Quiles AustinCHLAMYDIA, NAAT, THINPREP [ADDED]2023-10-08 00:00:00* Test Item Value Reference Range Interpretation Comme nts CHLAMYDIA, NAAT, THINPREP (t est code = 80521) NEGATIVE PDFE (test code = PDFReport) PDF Henry Quiles AustinGONORRHEA, NAAT, THINPREP [ADDED]2023-10-08 00:00:00* Test Item Value Reference Range Interpretation Comme nts GONORRHEA, NAAT, THINPREP (t est code = 06341) NEGATIVE Henry Quiles AustinCHLAMYDIA, NAAT, THINPREP [ADDED]2023-10-08 00:00:00* Test Item Value Reference Range Interpretation Comme nts CHLAMYDIA, NAAT, THINPREP (t est code = 75145) NEGATIVE PDFE (test code = PDFReport) PDF HenryTRISTAN Tom [id number] 08:14:44* Test Item Value Reference Range Interpretation Comme shaina ALCALA, THIRD GENERATION (test code = 2821) 5.200 UIU/ML 0.400-4.100 H UNLESS OTHERWISE INDICATED, ALL TESTING PERFORMED AT [facility] [address] [place] [address] MACHINE STRAW HAT PRESSER: JATIN FELIPE M.D. IA NUMBER [id number] [facility] [place] [id number] 00:00:00* Test Item Value Reference Range Interpretation Comme shaina TSH, THIRD GENERATION (test code = 2821) 5.200 UIU/ML Henry [id number] 00:00:00* Test Item Value Reference Range Interpretation Comme nts TSH, THIRD GENERATION (test code = 2821) 5.200 UIU/ML Henry [id number] 00:00:00* Test Item Value Reference Range Interpretation Comme shaina ALCALA, THIRD GENERATION (test code = 2821) 5.200 UIU/ML TRISTAN Grover [id number] 23:53:27* Test Item Value Reference Range Interpretation Comme shaina TSH, THIRD GENERATION (test code = 2821) 11.100 UIU/ML 0.400-4.100 H COMPREHENSIVE METABOLIC [id number] 23:46:03* Test Item Value Reference Range Interpretation Comme shaina GLUCOSE (test code = 2217) 97 MG/DL 70-99 BUN (test code = 2208) 7 MG/DL 6-20 CREATININE (test code = 2214) 0.61 MG/DL 0.60-1.30 eGFR (2020 CKD-EPI) (test code = 61814) 110 ML/MIN/1.73 >60 CALC BUN/CREAT (test code [...] 13 U/L 5-40 CBC W/AUTO DIFF WITH [id number] 08:48:44* Test Item Value Reference Range Interpretation [...] 0.00-0.10 ABS NUCLEATED RBCS (test code = 86426) 0.00 K/UL 0.00-0.11 UNLESS OTHER MONTOYA INDICATED, ALL TESTING PERFORMED AT [facility] [address] [place] [address] MACHINE STRAW HAT PRESSER: Derek FINNIA NUMBER [id number] [facility] [place]. [id number] 00:00:00* Test Item Value Reference Range Interpretation Comme nts TSH, THIRD GENERATION (test code = 2821) 11.100 UIU/ML Henry Etta BenCBC W/AUTO [id number] 00:00:00* Test Item Value Reference Range Interpretation [...] ABS NUCLEATED RBCS (test cod e = 25665) 0.00 K/UL Henry ContrerasCOMPREHENSIVE METABOLIC [id number] 00:00:00* Test Item Value Reference Range Interpretation Comme nts GLUCOSE (test code = 2217) 97 MG/DL BUN (test code = 2208) 7 MG/DL CREATININE (test code = 2214) 0.61 MG/DL eGFR (2020 CKD-EPI) (test code = 94959) 110 ML/MIN/1.73 CALC BUN/CREAT (test code = [...] (test code = 2219) 13 U/L Henry [id number] 00:00:00* Test Item Value Reference Range Interpretation Comme nts TSH, THIRD GENERATION (test code = 2821) 11.100 UIU/ML Henry ContrerasCBC W/AUTO [id number] 00:00:00* Test Item Value Reference Range Interpretation [...] ABS NUCLEATED RBCS (test cod e = 56145) 0.00 K/UL Henry Quiles AustinCOMPREHENSIVE METABOLIC [id number] 00:00:00* Test Item Value Reference Range Interpretation Comme nts GLUCOSE (test code = 2217) 97 MG/DL BUN (test code = 2208) 7 MG/DL CREATININE (test code = 2214) 0.61 MG/DL eGFR (2020 CKD-EPI) (test code = 08895) 110 ML/MIN/1.73 CALC BUN/CREAT (test code = [...] (test code = 2219) 13 U/L Henry [id number] 00:00:00* Test Item Value Reference Range Interpretation Comme nts TSH, THIRD GENERATION (test code = 2821) 11.100 UIU/ML Henry ContrerasCBC W/AUTO [id number] 00:00:00* Test Item Value Reference Range Interpretation [...] ABS NUCLEATED RBCS (test cod e = 38057) 0.00 K/UL Henry ContrerasCOMPREHENSIVE METABOLIC [id number] 00:00:00* Test Item Value Reference Range Interpretation Comme nts GLUCOSE (test code = 2217) 97 MG/DL BUN (test code = 2208) 7 MG/DL CREATININE (test code = 2214) 0.61 MG/DL eGFR (2020 CKD-EPI) (test code = 43492) 110 ML/MIN/1.73 CALC BUN/CREAT (test code = [...] (test code = 2219) 13 U/L Henry [id number] 01:13:06* Test Item Value Reference Range Interpretation Comme nts TRANSFERRIN (test code = 4936) 315 MG/DL 200-360 UNLESS OTHERWISE INDICATED, ALL TESTING PERFORMED AT [facility] [address] [place] [address] MACHINE STRAW HAT PRESSER: JATIN FELIPE M.D. CLIA NUMBER [id number] [facility] [place]. [id number] LIPID [id number] 01:12:48* Test Item Value Reference Range Interpretation [...] SPECIMENS. FOR MOREINFORMATION, SEE CLIENT ANNOUNCEMENT AT [email or web address] RISK RATIO LDL/HDL (test code = 2237) 1.34 RATIO <3.22 COMPREHENSIVE METABOLIC [id number] 01:12:48* Test Item Value Reference Range Interpretation [...] IRON BINDING CAPACITY AND IRON AND % [id number] 01:12:48* Test Item Value Reference Range Interpretation Comme nts IRON, SERUM (test code = 2221) 51 UG/DL 37-145 UNSATURATED IBC (test code = 93130) 356 UG/DL 112-347 H CALC TOTAL IBC (test code = 2076) 407 UG/DL 250-450 CALC % IRON SAT (test code = 2078) 13 % 20-50 L [id number] 00:59:24* Test Item Value Reference Range Interpretation Comme nts FERRITIN (test code = 2074) 20 NG/ML 13-200 LIPID [id number] 00:00:00* Test Item Value Reference Range Interpretation Comme nts CHOLESTEROL (test code = 2210) 191 MG/DL TRIGLYCERIDES (test code = 2232) 89 MG/DL HDL CHOLESTEROL (test code = 2220) 74 MG/DL CALC LDL CHOL (test code = 2237) 99 MG/DL RISK RATIO LDL/HDL (test cod e = 2238) 1.34 RATIO Henry Quiles BenCOMPREHENSIVE METABOLIC [id number] 00:00:00* Test Item Value Reference Range Interpretation Comme nts GLUCOSE (test code = 2217) 92 MG/DL BUN (test code = 2208) 15 MG/DL CREATININE (test code = 2214) 0.65 MG/DL eGFR (2020 CKD-EPI) (test code = 18832) 108 ML/MIN/1.73 CALC BUN/CREAT (test code = [...] BenIRON BINDING CAPACITY AND IRON AND % [id number] 00:00:00* Test Item Value Reference Range Interpretation Comme nts IRON, SERUM (test code = 2221) 51 UG/DL UNSATURATED IBC (test code = ) 356 UG/DL CALC TOTAL IBC (test code = 2076) 407 UG/DL CALC % IRON SAT (test code = 2078) 13 % Henry [id number] 00:00:00* Test Item Value Reference Range Interpretation Comme nts FERRITIN (test code = 2074) 20 NG/ML Henry C[id number] 00:00:00* Test Item Value Reference Range Interpretation Comme nts TRANSFERRIN (test code = 4936) 315 MG/DL Henry ContrerasLIPID [id number] 00:00:00* Test Item Value Reference Range Interpretation Comme nts CHOLESTEROL (test code = 2210) 191 MG/DL TRIGLYCERIDES (test code = 2232) 89 MG/DL HDL CHOLESTEROL (test code = 2220) 74 MG/DL CALC LDL CHOL (test code = 2237) 99 MG/DL RISK RATIO LDL/HDL (test cod e = 2238) 1.34 RATIO Henry ContrerasCOMPREHENSIVE METABOLIC [id number] 00:00:00* Test Item Value Reference Range Interpretation Comme nts GLUCOSE (test code = 2217) 92 MG/DL BUN (test code = 2208) 15 MG/DL CREATININE (test code = 2214) 0.65 MG/DL eGFR (2020 CKD-EPI) (test code = 77244) 108 ML/MIN/1.73 CALC BUN/CREAT (test code = [...] ContrerasIRON BINDING CAPACITY AND IRON AND % [id number] 00:00:00* Test Item Value Reference Range Interpretation Comme nts IRON, SERUM (test code = 2221) 51 UG/DL UNSATURATED IBC (test code = ) 356 UG/DL CALC TOTAL IBC (test code = 2076) 407 UG/DL CALC % IRON SAT (test code = 2078) 13 % Henry [id number] 00:00:00* Test Item Value Reference Range Interpretation Comme nts FERRITIN (test code = 2074) 20 NG/ML Henry Quiles [id number] 00:00:00* Test Item Value Reference Range Interpretation Comme nts TRANSFERRIN (test code = 4936) 315 MG/DL Henry ContrerasLIPID [id number] 00:00:00* Test Item Value Reference Range Interpretation Comme nts CHOLESTEROL (test code = 2210) 191 MG/DL TRIGLYCERIDES (test code = 2232) 89 MG/DL HDL CHOLESTEROL (test code = 2220) 74 MG/DL CALC LDL CHOL (test code = 7) 99 MG/DL RISK RATIO LDL/HDL (test cod e = 2238) 1.34 RATIO Henry ContrerasCOMPREHENSIVE METABOLIC [id number] 00:00:00* Test Item Value Reference Range Interpretation Comme nts GLUCOSE (test code = 7) 92 MG/DL BUN (test code = 2208) 15 MG/DL CREATININE (test code = 2214) 0.65 MG/DL eGFR (2020 CKD-EPI) (test code = 81949) 108 ML/MIN/1.73 CALC BUN/CREAT (test code = [...] ContrerasIRON BINDING CAPACITY AND IRON AND % [id number] 00:00:00* Test Item Value Reference Range Interpretation Comme nts IRON, SERUM (test code = 2222) 51 UG/DL UNSATURATED IBC (test code = 33640) 356 UG/DL CALC TOTAL IBC (test code = 207) 407 UG/DL CALC % IRON SAT (test code = 207) 13 % Henry [id number] 00:00:00* Test Item Value Reference Range Interpretation Comme nts FERRITIN (test code = 2075) 20 NG/ML Henry ContrerasIijiquNHKKWKYKYJD9212-09-96 00:00:00* Test Item Value Reference Range Interpretation Comme nts TRANSFERRIN (test code = 4936) 315 MG/DL Henry ContrerasHEMOGLOBIN [id number] 03:08:40* Test Item Value Reference Range Interpretation Comme nts HEMOGLOBIN A1c (test code = 83340) 5.5 % 4.2-5.6 CBC W/AUTO DIFF WITH [id number] 02:29:36* Test Item Value Reference Range Interpretation [...] 0.00-0.10 ABS NUCLEATED RBCS (test code = 38405) 0.00 K/UL 0.00-0.11 CBC W/AUTO [id number] 00:00:00* Test Item Value Reference Range Interpretation [...] ABS NUCLEATED RBCS (test cod e = 79133) 0.00 K/UL Henry Quiles AustinHEMOGLOBIN [id number] 00:00:00* Test Item Value Reference Range Interpretation Comme nts HEMOGLOBIN A1c (test code = 12124) 5.5 % Henry ContrerasCBC W/AUTO [id number] 00:00:00* Test Item Value Reference Range Interpretation [...] ABS NUCLEATED RBCS (test cod e = 03962) 0.00 K/UL Henry Quiles AustinHEMOGLOBIN [id number] 00:00:00* Test Item Value Reference Range Interpretation Comme nts HEMOGLOBIN A1c (test code = 19077) 5.5 % Henry ContrerasCBC W/AUTO [id number] 00:00:00* Test Item Value Reference Range Interpretation [...] ABS NUCLEATED RBCS (test cod e = 39505) 0.00 K/UL Henry ContrerasHEMOGLOBIN [id number] 00:00:00* Test Item Value Reference Range Interpretation Comme nts HEMOGLOBIN A1c (test code = 25963) 5.5 % Henry ContrerasDRUGS OF [id number] 05:03:00* Test Item Value Reference Range Interpretation [...] 200 ng/mL Opiates 300 ng/mL URINALYSIS WITH [id number] 04:56:00* Test Item Value Reference Range Interpretation [...] (test code = USPERM) /HPF NONE URINE [id number] 04:53:00* Test Item Value Reference Range Interpretation [...] attention to other clinical and epidemiological data [id number] 16:00:00* Test Item Value Reference Range Interpretation Comme nts SALICYLATE (test code = 94B) <3.0 mg/dL 15.0-30.0 L LIVER [id number] 15:49:00* Test Item Value Reference Range Interpretation [...] code = 31A) <7 IU/L 10-49 L [id number] 15:48:00* Test Item Value Reference Range Interpretation [...] to interpret this result as normal/abnormal. 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 Old healed fractures of the distal tibia and fibular noted.Soft tissues: Unremarkable.IMPRESSION: No acute findings.Electronically signed by: Nikko Santiago MD 11/04/2022 3:10 PM CDT [id number] BEDSIDE [id number] 11:51:00* Test Item Value Reference Range Interpretation Comme nts GLUCOSE BEDSIDE TESTING (karen t code = GLUBED) 79 MG/DL 70-119 N GLUCOSE BEDSIDE [id number] 06:23:00* Test Item Value Reference Range Interpretation Comme nts GLUCOSE BEDSIDE TESTING (karen t code = GLUBED) 80 MG/DL 70-119 N BASIC METABOLIC [id number] 05:12:00* Test Item Value Reference Range Interpretation [...] 2.0 <2.0 indicates None DetectedPerformed At: [facility] [address] [id number] Michael Reeves MD Ph:[phone] GLUCOSE BEDSIDE [id number] 19:51:00* Test Item Value Reference Range Interpretation Comme nts GLUCOSE BEDSIDE TESTING (karne t code = GLUBED) 129 MG/DL 70-119 H OSMOLALITY [id number] 17:56:00* Test Item Value Reference Range Interpretation Comme nts OSMOLALITY SERUM (test code = OSMO) 269 mOsm/kg 275-300 L THYROID STIMULATING [id number] 17:56:00* Test Item Value Reference Range Interpretation Comme nts THYROID STIMULATING HORMONE (test code = TSH) 4.190 mc IU/ML 0.340-4.820 N GLUCOSE BEDSIDE [id number] 15:49:00* Test Item Value Reference Range Interpretation [...] code = VALP) 37.5 mcG/ML 50.0-100.0 L [id number] 14:26:00* Test Item Value Reference Range Interpretation Comme nts AMMONIA (test code = AMM) 29.0 mcMOL/L 11.0-32.0 N GLUCOSE BEDSIDE [id number] 11:51:00* Test Item Value Reference Range Interpretation Comme nts GLUCOSE BEDSIDE TESTING (karen t code = GLUBED) 88 MG/DL 70-119 N GLYCOSYLATED HEMOGLOBIN (HA1C)2022-09-18 06:53:00* Test Item Value Reference Range Interpretation Comme nts GLYCOSYLATED HEMOGLOBIN (HA1 C) (test code = GLYHGB) 5.2 % IS-A1C 4.5-5.6 N ESTIMATED AVERAGE [id number] 06:53:00* Test Item Value Reference Range Interpretation [...] to interpret this result as normal/abnormal. UR [id number] 21:28:00* Test Item Value Reference Range Interpretation Comme nts UR SODIUM RANDOM (test code = JESUSITA) 93 mmol/L 40-200 N UR POTASSIUM RANDOM (test code = KU) 54.8 mmol/L 25-125 N NO ESTABLISHED NORMAL RANGES FOR RANDOM SPECIMENS. UR CHLORIDE RANDOM (test code = CLU) 164 mmol/L 110-150 H UR OSMOLALITY [id number] 21:28:00* Test Item Value Reference Range Interpretation Comme nts UR OSMOLALITY RANDOM (test c ode = OSMOU) 475 mOsm/kg 100-1400 N CBC W/O [id number] 20:05:00* Test Item Value Reference Range Interpretation [...] = MPV) 9.5 fL 6.8-11.2 N LACTIC [id number] 19:35:00* Test Item Value Reference Range Interpretation Comme nts LACTIC ACID (test code = LACT) 1.0 mmol/L 0.4-2.0 N HCG SERUM [id number] 19:31:00* Test Item Value Reference Range Interpretation Comme nts HCG SERUM QUAL (test code = HCGQL) Negative SCREEN NEG - CT HEAD/BRAIN W/O [id number] 18:59:00 [facility] BHUMIKA JONES : 1975 Sex: F Patient Name: BHUMIKA JONES Unit No: [id number] EXAMS: CPT CODE: [id number] CT HEAD/BRAIN W/O CONT 24443 Location: H3 CT head, conducted on 09/17/22 at 1837 hours COMPARISON EXAMS:Head CT exam of09/17/22 at 00:06 hours TECHNIQUE: CT examination of the brain was performed without contrast on [facility] scanner. Scanning conducted from skull base [...] (1858) [email or web address] [facility] NAME: JONES [address] [place]YS: [place] [address] : 1975 AGE: 47 SEX: F LOC: JOSHUA 20 PHONE #: [phone] EXAM DATE: 09/17/2022 STATUS: ADM IN FAX #: [phone] RAD #: D/C DT PAGE 1 Signed Report Patient Name: SILAS JONESPCION Unit No: [id number] EXAMS: CPT CODE: [id number] CT HEAD/BRAIN W/O CONT 52161 (Continued) Orig Print D/T: S: 09/17/2022 (1902) DENIZ Lugo NAME: ROBERT[address] PHYS: [place] [address] : 1975 AGE: 47 SEX: F LOC: JOSHUA 20 PHONE #: [phone] EXAM DATE: 09/17/2022 STATUS: ADM IN FAX #: [phone] RAD #: D/C DT PAGE 2 Signed ReportURINALYSIS [id number] 16:28:00* Test Item Value Reference Range Interpretation [...] >0 /UL NONE-SQepi DRUGS OF ABUSE SCREEN [id number] 16:28:00* Test Item Value Reference Range Interpretation [...] interpret this result as normal/abnormal. TROP-I HIGH [id number] 16:26:00* Test Item Value Reference Range Interpretation [...] and URLs may vary bymethod. BASIC METABOLIC [id number] 16:25:00* Test Item Value Reference Range Interpretation [...] interpret this result as normal/abnormal. HEPATIC FUNCTION [id number] 16:25:00* Test Item Value Reference Range Interpretation [...] ode = CK) 92 Unit/L 26-192 N [id number] 16:25:00* Test Item Value Reference Range Interpretation Comme nts LIPASE (test code = LIP) 57 Unit/L 114-286 L - CT HEAD/BRAIN W/O [id number] 00:32:00 [facility] : 1975 Sex: F Patient Name: BHUMIKA JONES Unit No: [id number] EXAMS: CPT CODE: [id number] CT HEAD/BRAIN W/O CONT 13912 EXAM: - CT HEAD/BRAIN W/O CONT LOCATION: [...] CTDI: DLP: Trnscrpt: 09/17/2022 (003) [email or web address] [facility] NAME: BHUMIKA JONES [address] [place] [address] Blvd PHYS: PATCA.02 - Asim [place], [place] [address] : 1975 AGE: 47 SEX: F LOC: GregorioERS PHONE #: [phone] EXAM DATE: 09/16/2022 STATUS: REG ER FAX #: [phone] RAD #: D/C DT PAGE1 Signed Report Patient Name: BHUMIKA JONES Unit No: [id number] EXAMS: CPT CODE: [id number] CT HEAD/BRAIN W/O CONT 66730 (Continued) Orig Print D/T: S: 09/17/2022 (0035) DENIZ Lugo NAME: BHUMIKA JONES [address] [place] [address] PHYS: YASMIN Asim Jack [place] [id number] : 1975 AGE: 47 SEX: F LOC: GregorioERS PHONE #: [phone] EXAM DATE: 09/16/2022 STATUS: REG ER FAX #: [phone] RAD #: D/C DT PAGE 2 Signed ReportTROP-I HIGH [id number] 00:13:00* Test Item Value Reference Range Interpretation [...] and URLs may vary bymethod. COMPREHENSIVE METABOLIC [id number] 00:11:00* Test Item Value Reference Range Interpretation [...] interpret this result as normal/abnormal. CBC W/AUTO [id number] 23:59:00* Test Item Value Reference Range Interpretation [...] K/mm3 0.0-0.05 N - XR CHEST 1 [id number] 23:34:00 [facility] [place]: BHUMIKA JONES : 1975 [place]: [place]: St: PRE -- Patient Name: BHUMIKA JONES Unit No: [id number] EXAMS: CPT CODE: [id number] XR CHEST 1 V 04870 EXAMINATION: - XR CHEST 1 V CLINICAL [...] By: NadiyaJH12 Orig Print D/T: S: 09/16/2022 (7274) DENIZ Lugo NAME: SILAS JONESPCION [address] [place] [address] Bl PHYS: PATCA.02 - Asim Jack MD, [place] [address] : 1975 AGE: 47 SEX: F LOC: B.ERS PHONE #: [phone] EXAM DATE: 09/16/2022 STATUS: PRE ER FAX #: [phone] RAD NO: DC Dt: PAGE 1 Signed ReportCARBAMAZEPINE (TEGRETOL) 2022-09-15 06:12:00* Test Item Value Reference Range Interpretation Comme nts CARBAMAZEPINE (TEGRETOL) (test code = CARB) 1.5 ug/mL 4.0-12.0 L In conjunction w ith other antiepileptic drugs Therapeutic 4.0 - 8.0 Toxicity 9.0 - 12.0 Carbamazepine alone Therapeutic 8.0 - 12.0 Detection Limit = 2.0 <2.0 indicates None DetectedPerformed At: [facility] [address] [place], [place] [id number] Michael Reeves MD Ph:[phone] VALPROIC ACID (DEPAKENE)2022-09-15 06:12:00* Test Item Value Reference Range Interpretation Comme nts VALPROIC ACID (DEPAKENE) (te st code = VALP) 80.6 mcG/ML 50.0-100.0 N COMPREHENSIVE METABOLIC [id number] 06:00:00* Test Item Value Reference Range Interpretation [...] interpret this result as normal/abnormal. CBC W/AUTO [id number] 05:37:00* Test Item Value Reference Range Interpretation [...] NRBC#) 0.00 K/mm3 0.0-0.05 N GLUCOSE BEDSIDE [id number] 20:03:00* Test Item Value Reference Range Interpretation Comme nts GLUCOSE BEDSIDE TESTING (karen t code = GLUBED) 117 MG/DL 70-119 N DRUGS OF ABUSE SCREEN [id number] 11:42:00* Test Item Value Reference Range Interpretation [...] result as normal/abnormal. - CT HEAD/BRAIN W/O [id number] 11:37:00 [facility] BH[facility]ON[facility] : 1975 Sex: F Patient Name: BHUMIKA JONES Unit No: [id number] EXAMS: CPT CODE: [id number] CT HEAD/BRAIN W/O CONT 41841 EXAMINATION: - CT HEAD/BRAIN W/O CONT COMPARISON: None HISTORY: Seizure LOCATION CODE: [id number]: CT of the Brain without contrast. Axial [...] MD; Jim Jaimes MD Dictated Date/Time: 09/14/2022 (6363) Technologist: ASUNCION CASTELLANO CTDI: DLP: Trnscrpt: 09/14/2022 (7704) [email or web address] DENIZ Lugo NAME: BHUMIKA JONES [facility] PHYS: Vladimir Menchaca MD [address] [place] [address] : 1975 AGE: 47 SEX: Etta [place] [address] LOC: NEHA 10 PHONE #: [phone] EXAM DATE: 09/14/2022 STATUS: ADM IN FAX #: [phone] RAD #: D/C DT PAGE 1 Signed Report Patient Name: BHUMIKA JONES Unit No: [id number] EXAMS: CPT CODE: [id number] CT HEAD/BRAIN W/O CONT 31312 (Continued) Orig Print D/T: S: 09/14/2022 (1140) DENIZ Lugo NAME: BHUMIKA JONES MEDICAL IMAG[facility] PHYS: Vladimir Menchaca MD [address] [place] [address] : 1975 AGE: 47 SEX: F [place] [address] LOC: NEHA 10 PHONE #: [phone] EXAM DATE: 09/14/2022 STATUS: ADM IN FAX #: [phone] RAD #: D/C DT PAGE 2 Signed Report PT AND [id number] 06:51:00* Test Item Value Reference Range Interpretation [...] AVOIDED DUE TO POSSIBLE HEPARINCONTAMINATION HCG SERUM [id number] 06:51:00* Test Item Value Reference Range Interpretation [...] CK) 268 Unit/L 26-192 H CBC W/AUTO [id number] 03:43:00* Test Item Value Reference Range Interpretation [...] = NRBC#) 0.00 K/mm3 0.0-0.05 N URINALYSIS [id number] 03:41:00* Test Item Value Reference Range Interpretation [...] RARE /LPF NONE - XR CHEST 2 [id number] 02:06:00 [facility] BH[facility]ON[facility] : 1975 Sex: F FAX: Suleman Carvalho RUTH [phone] [place]: E St: REG Patient Name: BHUMIKA JONES Unit No: [id number] EXAMS: CPT CODE: [id number] XR CHEST 2 V 86034 EXAM: - XR CHEST 2 V HISTORY: [...] D/T: S: 09/14/2022 (020) DENIZ Lugo NAME: ROB[address] PHYS: GISEL - Deven,Suleman Lugo, [place] [address] : 1975 AGE: 47 SEX: F LOC: MARCOS PHONE #: [phone] EXAM DATE: 09/14/2022 STATUS: REG ERFAX #: [phone] RAD NO: DC Dt: PAGE 1 Signed ReportCOMPREHENSIVE METABOLIC [id number] 12:49:00* Test Item Value Reference Range Interpretation [...] used to interpret this result as normal/abnormal. [id number] 12:49:00* Test Item Value Reference Range Interpretation Comme nts MAGNESIUM (test code = MAG) 1.7 MG/DL 1.6-2.6 N CBC W/AUTO [id number] 12:36:00* Test Item Value Reference Range Interpretation [...] RARE /LPF NONE DRUGS OF ABUSE SCREEN [id number] 00:33:00* Test Item Value Reference Range Interpretation [...] 300 ng/mL UA RFLX MICR CULT IF [id number] 00:30:00* Test Item Value Reference Range Interpretation [...] culture: Suprapubic PainSpecimen Description: CLEAN CATCHBASIC METABOLIC [id number] 00:18:00* Test Item Value Reference Range Interpretation [...] 8.9 mg/dl 8.0-10.5 N HEPATIC FUNCTION PANEL [id number] 00:18:00* Test Item Value Reference Range Interpretation [...] ALKP) 113 Units/L 50.0-136.0 N HCG SERUM [id number] 00:18:00* Test Item Value Reference Range Interpretation Comme nts HCG SERUM QUAL (test code = HCGQL) NEGATIVE NEGATIVE [id number] 00:18:00* Test Item Value Reference Range Interpretation Comme nts ALCOHOL (test code = ALC) 0.00 gm/dL 0.00-0.00 N ETHYL ALCOHOL MIRELLA HARRELL - INTERPRETATION: 0.050 GM/DL - NOT INTOXICATED 0.100 GM/DL - INTOXICATED 0.350-0.450 GM/DL - SEVERELY INTOXICATED 0.550 GM/DL- FATAL INTOXICATION Coronavirus 2019 nCoV [id number] 00:09:00* Test Item Value Reference Range Interpretation Comme nts Coronavirus 2019 nCoV Bedside (test code = IUAWL30AUBOP) Negative NEGATIVE Negative results should be treated as presumptive and ifinconsistent with clinical signs and symptoms, or necessaryfor patient management, should be tested with an alternativemolecular assay. Negative results do not preclude OJXV-PoG-4sdslazoxp and should not be used as the sole basis forpatient management decisions. Negative results should beconsidered in the context of a patient's recent exposures,history, presence of clinical signs and symptoms consistentwith COVID-19. CBC W/AUTO [id number] 23:58:00* Test Item Value Reference Range Interpretation [...] X10 3uL 0.00-0.01 N COMP. METABOLIC PANEL (08167)2022-09-07 02:12:41* Test Item Value Reference Range Interpretation Comme nts NA (test code = 5679137447) 133 mmol/L 135-145 L K (test code = 9014583279) 4.4 mmol/L 3.5-5.0 CL (test code = 9387760714) 102 mmol/L 98-108 CO2 TOTAL (test code = 2587189078) 25 mmol/L 23-31 AGAP (test code = 8504527535) 6 2-16 BUN (test code = 2389251178) 22 mg/dL 7-23 GLUCOSE (test code = 7506101011) 97 mg/dL 70-110 CREATININE (test code = 6331563264) 0.40 mg/dL 0.50-1.04 L TOTAL BILI (test code = 4477729672) 0.3 mg/dL 0.1-1.1 CALCIUM (test code = 5730875805) 8.9 mg/dL 8.6-10.6 T PROTEIN (test code = 3077666998) 7.7 g/dL 6.3-8.2 ALBUMIN (test code = 3190069036) 4.0 g/dL 3.5-5.0 ALK PHOS (test code = 0816497297) 104 U/L 34-122 ALTv (test code = 1742-6) 15 U/L 5-35 AST(SGOT) (test code = 8027018311) 22 U/L 13-40 eGFR (test code = 6671610610) 170.4 mL/min/1.73m2 HANNAH (test code = HANNAH) [...] imaging tests). Lab Interpretation (test code = 19294-5) Abnormal [facility] WITH [id number] 02:01:20* Test Item Value Reference Range Interpretation Comme nts WBC (test code = 6690-2) 6.17 See_Comment [Automated [employer]] The system which generated this result transmitted reference range: 4.30 - 11.10 10*3/?L. The reference range was not used to interpret this result as normal/abnormal. RBC (test code = 789-8) 3.73 See_Comment L [Automated [employer]] The system which generated this result transmitted [...] 32.9 g/dL 31.6-35.1 RDW-SD (test code = 96634-3) 48.1 fL 39.0-49.9 RDW-CV (test code = 788-0) 14.7 % 12.0-15.5 PLT (test code = 777-3) 272 See_Comment [Automated messa ge] The system which generated this result transmitted reference range: 166 - 358 10*3/?L. The reference range was not used to interpret this result as normal/abnormal. MPV (test code = 39306-6) 9.6 fL 9.5-12.9 NRBC/100 WBC (test code = 2441837482) 0.0 See_Comment [Automated [employer] ssage] The system which generated this result transmitted reference range: 0.0 - 10.0 /100 WBCs. The reference range was not used to interpret this result as normal/abnormal. NRBC x10^3 (test code = 8701435640) See_Comment [Automated [employer]] The system which generated this result transmitted reference range: 10*3/?L. The reference range was not used to interpret this result as normal/abnormal. GRAN MAT (NEUT) % (test code = 770-8) 42.2 % IMM GRAN % (test code = 3087421526) 0.20 % LYMPH % (test code = 736-9) 38.2 % MONO % (test code = 5905-5) 12.6 % EOS % (test code = 713-8) 5.8 % BASO % (test code = 706-2) 1.0 % GRAN MAT x10^3(ANC) (test code = 7731747533) 2.60 10*3/uL 1.88-7.09 IMM GRAN x10^3 (test code = 7960549113) 0.00-0.06 LYMPH x10^3 (test code = 731-0) 2.36 10*3/uL 1.32-3.29 MONO x10^3 (test code = 742-7) 0.78 10*3/uL 0.33-0.92 EOS x10^3 (test code = 711-2) 0.36 10*3/uL 0.03-0.39 BASO x10^3 (test code = 704-7) 0.06 10*3/uL 0.01-0.07 Lab Interpretation (test code = 88137-8) [facility]normal [facility] ([facility]OVID[facility]19) by RT-PCR (HIGH RISK) 2020-08-19 00:00:00* Test Item Value Reference Range Interpretation Comme nts SARS-CoV-2 INTERPRETATION (t est code = 61024) NEGATIVE SOURCE (test code = 21352) NOT SPECIFIED Henry Quiles IuccdsWPBH-TdD-5 (COVID-19) by RT-PCR (HIGH RISK)2020-08-19 00:00:00* Test Item Value Reference Range Interpretation Comme nts SARS-CoV-2 INTERPRETATION (t est code = 44910) NEGATIVE SOURCE (test code = 53280) NOT SPECIFIED Henry F RsashqPTII-UyL-9 (COVID-19) by RT-PCR (HIGH RISK)2020-08-19 00:00:00* Test Item Value Reference Range Interpretation Comme nts SARS-CoV-2 INTERPRETATION (t est code = 79409) NEGATIVE SOURCE (test code = 62555) NOT SPECIFIED [facility] F AustinHPV HIGH RISK WITH GENOTYPE, [id number] 00:00:00* Test Item Value Reference Range Interpretation Comme [facility] HPV HIGH RISK INTERP (test c ode = 05502) NEGATIVE HPV 16 (test code = 99497) NEGATIVE HPV 18 (test code = 66787) NEGATIVE HPV, HR, OTHER GENOTYPES (te st code = 21648) NEGATIVE Henry F AustinPAP TEST, THINPREP, [id number] 00:00:00* Test Item Value Reference Range Interpretation Comme nts SOURCE: (test code = 8001) Cervical/Endocervical SLIDES: (test code = 8011) 1 LMP: (test code = 8021) 06/2017 SPECIMEN ADEQUACY: (test code = 75168) (NOTE) INTERPRETATION: (test code = 74465) NILM/NO EPITH. ABNORMALITY;SEE BELOW RD SCIENTIST: (test code = 8101) [place], CT(ASCP) IAC LOCATION: (test code = 76258) (NOTE) CPT: (test code = 8140) (NOTE) Henry Quiles AustinHPV HIGH RISK WITH GENOTYPE, [id number] 00:00:00* Test Item Value Reference Range Interpretation Comme nts HPV HIGH RISK INTERP (test c ode = 12811) NEGATIVE HPV 16 (test code = 00872) NEGATIVE HPV 18 (test code = 69078) NEGATIVE HPV, HR, OTHER GENOTYPES (te st code = 55585) NEGATIVE Henry Quiles AustinPAP TEST, THINPREP, [id number] 00:00:00* Test Item Value Reference Range Interpretation Comme nts SOURCE: (test code = 8001) Cervical/Endocervical SLIDES: (test code = 8011) 1 LMP: (test code = 8021) 06/2017 SPECIMEN ADEQUACY: (test code = 32129) (NOTE) INTERPRETATION: (test code = 55331) NILM/NO EPITH. ABNORMALITY;SEE BELOW RD SCIENTIST: (test code = 8101) [place], CT(ASCP) IAC LOCATION: (test code = 97798) (NOTE) CPT: (test code = 8140) (NOTE) Henry Quiles AustinHPV HIGH RISK WITH GENOTYPE, [id number] 00:00:00* Test Item Value Reference Range Interpretation Comme nts HPV HIGH RISK INTERP (test c ode = 60975) NEGATIVE HPV 16 (test code = 97719) NEGATIVE HPV 18 (test code = 97355) NEGATIVE HPV, HR, OTHER GENOTYPES (te st code = 14182) NEGATIVE Henry ContrerasPAP TEST, THINPREP, [id number] 00:00:00* Test Item Value Reference Range Interpretation Comme nts SOURCE: (test code = 8001) Cervical/Endocervical SLIDES: (test code = 8011) 1 LMP: (test code = 8021) 06/2017 SPECIMEN ADEQUACY: (test code = 38012) (NOTE) INTERPRETATION: (test code = 46318) NILM/NO EPITH. ABNORMALITY;SEE BELOW RD SCIENTIST: (test code = 8101) [facility] IAC LOCATION: (test code = 26279) (NOTE) CPT: (test code = 8140) (NOTE) Henry ContrerasCT HEAD WO [id number] 22:34:12Impression: 1. ?No acute intracranial process. 2. [...] he patient. Please correlate with history and physicalexamination.[facility] CERVICAL SPINE 2 [id number] 22:29:40No acute osseous abnormality. Preliminary Report Dictated [...] reviewed this study and agree with theabove report.[facility] HospitalCB WITH SLJQGWNZZSNV3175-72-29 21:46:00* Test Item Value Reference Range Interpretation [...] 32.2 g/dL 31.6-35.1 RDW-SD (test code = 14284-9) 45.1 fL 39-49.9 RDW-CV (test code = 788-0) 14.6 % 12-15.5 PLT (test code = 777-3) See_Comment L [Automated messa ge] The system which generated this result transmitted reference range: 166 - 358 10*3/?L. The reference range was not used to interpret this result as normal/abnormal. MPV (test code = 77622-5) 9.0 fL 9.5-12.9 L NRBC/100 WBC (test code = 4823547612) See_Comment [Automated me ssage] The system which generated this result transmitted reference range: 0.0 - 10.0 /100 WBCs. The reference range was not used to interpret this result as normal/abnormal. NRBC x10^3 (test code = 4488972364) <0.01 See_Comment [Automated messa ge] The system which generated this result transmitted reference range: 10*3/?L. The reference range was not used to interpret this result as normal/abnormal. GRAN MAT (NEUT) % (test code = 770-8) 51.3 % IMM GRAN % (test code = 9122823102) 0.40 % LYMPH % (test code = 736-9) 24.4 % MONO % (test code = 5905-5) 23.1 % EOS % (test code = 713-8) 0.4 % BASO % (test code = 706-2) 0.4 % GRAN MAT x10^3(ANC) (test code = 1540813929) 2.48 10*3/uL 1.88-7.09 IMM GRAN x10^3 (test code = 1301178497) <0.03 0-0.06 LYMPH x10^3 (test code = 731-0) 1.18 10*3/uL 1.32-3.29 L MONO x10^3 (test code = 742-7) 1.12 10*3/uL 0.33-0.92 H EOS x10^3 (test code = 711-2) <0.03 0.03-0.39 L BASO x10^3 (test code = 704-7) <0.03 0.01-0.07 Lab Interpretation (test code = 08122-2) Abnormal [facility] CERV[facility] SP[facility] 2 [id number] 03:28:03No acute osseous abnormality. Preliminary Report Dictated [...] this study and agree withthe above report. [facility] HospitalValproic Acid [id number] 08:03:22* Test Item Value Reference Range Interpretation Comme nts Valproic Acid Level (test co de = Valproic Acid Level) 57.6 ug/mL(g) 50.0-100.0 Hemoglobin [id number] 09:36:00* Test Item Value Reference Range Interpretation Comme nts Hemoglobin A1c (test code = Hemoglobin A1c) 5.0 % 4.8-5.9 Non Diabetic 4.8-5.9%Diabetic <7.0% CT Shoulder w/o Contrast [id number] 16:49:13Patient: BHUMIKA JONES Date/Time01/09/2019 16:14 CDTReason for [...] Adam FSigned (Electronic Signature): 01/09/2019 4:49 pmRPR Nmbrbjwfcmw6671-67-47 21:33:20* Test Item Value Reference Range Interpretation [...] 04-23-2020 N XR Shoulder Complete 2+ Views Swdh1522-72-68 15:41:25Patient: BHUMIKA JONES Date/Time01/07/2019 15:25 CDTReason for [...] CSigned (Electronic Signature): 01/07/2019 3:41 pmThyroid Stimulating Qpszzpn9469-57-74 03:07:04* Test Item Value Reference Range Interpretation Comme nts TSH (test code = TSH) 9.650 mIU/mL 0.270-4.200 H Lipid [id number] 03:07:03* Test Item Value Reference Range Interpretation Comme nts Cholesterol Total (test code = Cholesterol Total) 199 mg/dL 0-200 RISK OF HEART DISEASEPublished by [place] Heart Association Analyte Optimal Borderline Increased RiskCHOL [...] is LDL/HDL Ratio=LDL Calc/HDL Chol HCG Qualitative Mqczy4840-76-27 02:33:13* Test Item Value Reference Range Interpretation Comme nts HCG, Serum Qual (test code = HCG, Serum Qual) Negative Lot # (test code = Lot #) [id number] N Expiration Dt (test code = Expiration Dt) 2020-04-23 N Neg Control (test code = Neg Control) Negative Pos Control (test code = Pos Control) Positive Internal QC (test code = Int ernal QC) Acceptable Drugs of Abuse Urine [id number] 18:58:11* Test Item Value Reference Range Interpretation [...] = Cannabinoid Screen Ur) Negative Negative Alcohol Jrmxz4981-46-86 18:47:34* Test Item Value Reference Range Interpretation Comme nts Ethanol Level (test code = Ethanol Level) <0.00 g/dL 0.00-0.01 Intoxicated 0.08 0 g/dL or more Ethanol Inst (test code = Ethanol Inst) <0 N Comprehensive Metabolic Jxfks6514-50-10 18:47:33* Test Item Value Reference Range Interpretation [...] A/G Ratio) 1.0 ratio N Comprehensive Metabolic Mvkvz7859-23-15 18:47:33* Test Item Value Reference Range Interpretation [...] is not provided, and the patient is -[place], multiply by 1.212. If sex is not [...] the National Kidney Foundation, http://nkdep.nih.gov Comprehensive Metabolic Cukcr4837-80-40 18:47:33* Test Item Value Reference Range Interpretation [...] is not provided, and the patient is -[place], multiply by 1.212. If sex is not [...] is not provided, and the patient is -[place], multiply by 1.212. If sex is not [...] Kidney Foundation, http://nkdep.nih.gov Complete Blood Count with Tyftzidoqntb9700-26-17 18:15:23* Test Item Value Reference Range Interpretation [...] code = IPF) 0 % N Automated Dkglqlmotkce9310-63-06 18:15:23* Test Item Value Reference Range Interpretation Comme nts Neutro Auto (test code = Sunny tro Auto) 42.1 % 36.0-70.0 Lymph Auto (test code = Lymph Auto) 40.0 % 12.0-44.0 [place] Auto (test code = [place] Auto) 12.2 % 0.0-11.0 H Eos, Auto (test code = Eos, Auto) 4.9 % 0.0-7.0 Basophil Auto (test code = B asophil Auto) 0.6 % 0.0-2.0 Neutro Absolute (test code = Neutro Absolute) 2.2 x10 1.6-7.4 Lymph Absolute (test code = Lymph Absolute) 2.06 x10 .50-4.60 [place] Absolute (test code = M richa Absolute) .63 x10 .00-1.20 Eos Absolute (test code = Eo s Absolute) 0.25 x10 0.00-0.74 Baso Absolute (test code = B aso Absolute) 0.03 x10 0.00-0.21 IG Cdztc4779-34-66 18:15:23* Test Item Value Reference Range Interpretation Comme nts IG (test code = IG) 0.2 % 0.0-5.0 IG Abs (test code = IG Abs) 0 x10 N VALPROIC [id number] 00:00:00* Test Item Value Reference Range Interpretation Comme nts VALPROIC ACID (test code = 3025) 69.8 UG/ML Henry Quiles AustinVALPROIC [id number] 00:00:00* Test Item Value Reference Range Interpretation Comme nts VALPROIC ACID (test code = 3025) 69.8 UG/ML Henry Quiles AustinVALPROIC [id number] 00:00:00* Test Item Value Reference Range Interpretation Comme nts VALPROIC ACID (test code = 3025) 69.8 UG/ML Henry Quiles AustinURINE CULTURE, NO [id number] 00:00:00* Test Item Value Reference Range Interpretation Comme nts URINE CULTURE, NO SENS (test code = 86590) SPECIMEN NUMBER: [id number] Henry Quiles AustinURINE CULTURE, NO [id number] 00:00:00* Test Item Value Reference Range Interpretation Comme nts URINE CULTURE, NO SENS (test code = 09734) SPECIMEN NUMBER: [id number] Henry Quiles AustinURINE CULTURE, NO [id number] 00:00:00* Test Item Value Reference Range Interpretation Comme nts URINE CULTURE, NO SENS (test code = 03112) SPECIMEN NUMBER: [id number] Henry Quiles AustinIRON BINDING CAPACITY AND IRON AND % [id number] 00:00:00* Test Item Value Reference Range Interpretation Comme nts IRON, SERUM (test code = 2222) 42 UG/DL UNSATURATED IBC (test code = 83535) 279 UG/DL CALC TOTAL IBC (test code = 7) 321 UG/DL CALC % IRON SAT (test code = 9) 13 % Henry Quiles XkvfqrRLSAUFZF6545-43-25 00:00:00* Test Item Value Reference Range Interpretation Comme nts FERRITIN (test code = 2075) 15 NG/ML Henry Quiles EgigogPOPGDTUNDVG2778-24-65 00:00:00* Test Item Value Reference Range Interpretation Comme nts TRANSFERRIN (test code = 4936) 269 MG/DL Henry Quiles AustinFOLIC [id number] 00:00:00* Test Item Value Reference Range Interpretation Comme nts FOLIC ACID (test code = 2695) 5.4 UG/L Henry Quiles AustinIRON BINDING CAPACITY AND IRON AND % [id number] 00:00:00* Test Item Value Reference Range Interpretation Comme nts IRON, SERUM (test code = 2) 42 UG/DL UNSATURATED IBC (test code = 25788) 279 UG/DL CALC TOTAL IBC (test code = 7) 321 UG/DL CALC % IRON SAT (test code = 9) 13 % Henry Quiles AqhuljUPEBAJIF4820-73-92 00:00:00* Test Item Value Reference Range Interpretation Comme nts FERRITIN (test code = 2075) 15 NG/ML Henry Quiles KrmlpkTSIQBXUAMGP6385-85-04 00:00:00* Test Item Value Reference Range Interpretation Comme nts TRANSFERRIN (test code = 4936) 269 MG/DL Henry Quiles AustinFOLIC KZMW8357-81-40 00:00:00* Test Item Value Reference Range Interpretation Comme nts FOLIC ACID (test code = 2695) 5.4 UG/L Henry Quiles AustinIRON BINDING CAPACITY AND IRON AND % ERAJEABVEY0845-18-41 00:00:00* Test Item Value Reference Range Interpretation Comme nts IRON, SERUM (test code = 2222) 42 UG/DL UNSATURATED IBC (test code = 91146) 279 UG/DL CALC TOTAL IBC (test code = 2077) 321 UG/DL CALC % IRON SAT (test code = 2079) 13 % Henry Quiles [id number] 00:00:00* Test Item Value Reference Range Interpretation Comme nts FERRITIN (test code = 2075) 15 NG/ML Henry Quiles [id number] 00:00:00* Test Item Value Reference Range Interpretation Comme nts TRANSFERRIN (test code = 4936) 269 MG/DL Henry Quiles AustinFOLIC [id number] 00:00:00* Test Item Value Reference Range Interpretation Comme nts FOLIC ACID (test code = 2695) 5.4 UG/L Henry Quiles AustinCULTURE, URINE [ADDED]2018-06-12 00:00:00* Test Item Value Reference Range Interpretation Comme nts CULTURE, URINE (test code = 20092) SPECIMEN NUMBER: [id number] Henry Quiles AustinCULTURE, URINE [ADDED]2018-06-12 00:00:00* Test Item Value Reference Range Interpretation Comme nts CULTURE, URINE (test code = 46890) SPECIMEN NUMBER: [id number] Henry Quiles AustinCULTURE, URINE [ADDED]2018-06-12 00:00:00* Test Item Value Reference Range Interpretation Comme nts CULTURE, URINE (test code = 44169) SPECIMEN NUMBER: [id number] Henry Quiles AustinCBC W/AUTO [id number] 00:00:00* Test Item Value Reference Range Interpretation [...] = 1015) 184 K/UL Henry ContrerasCOMPREHENSIVE METABOLIC [id number] 00:00:00* Test Item Value Reference Range Interpretation Comme nts GLUCOSE (test code = 2217) 86 MG/DL BUN (test code = 2208) 16 MG/DL CREATININE (test code = 2214) 0.45 MG/DL eGFR AMER. (test cod e = 44777) 141 ML/MIN/1.73 eGFR NON- AMER. (test code = 84311) 122 ML/MIN/1.73 CALC BUN/CREAT (test code = [...] code = 2219) 17 U/L Henry ContrerasVALPROIC [id number] 00:00:00* Test Item Value Reference Range Interpretation Comme nts VALPROIC ACID (test code = 3025) 100.9 UG/ML Henry ContrerasCBC W/AUTO [id number] 00:00:00* Test Item Value Reference Range Interpretation [...] = 1015) 184 K/UL Henry ContrerasCOMPREHENSIVE METABOLIC [id number] 00:00:00* Test Item Value Reference Range Interpretation Comme nts GLUCOSE (test code = 2217) 86 MG/DL BUN (test code = 2208) 16 MG/DL CREATININE (test code = 2214) 0.45 MG/DL eGFR AMER. (test cod e = 77374) 141 ML/MIN/1.73 eGFR NON- AMER. (test code = 16120) 122 ML/MIN/1.73 CALC BUN/CREAT (test code = [...] code = 2219) 17 U/L Henry ContrerasVALPROIC [id number] 00:00:00* Test Item Value Reference Range Interpretation Comme nts VALPROIC ACID (test code = 3025) 100.9 UG/ML Henry ContrerasCBC W/AUTO [id number] 00:00:00* Test Item Value Reference Range Interpretation [...] = 1015) 184 K/UL Henry ContrerasCOMPREHENSIVE METABOLIC [id number] 00:00:00* Test Item Value Reference Range Interpretation Comme nts GLUCOSE (test code = 2217) 86 MG/DL BUN (test code = 2208) 16 MG/DL CREATININE (test code = 2214) 0.45 MG/DL eGFR AMER. (test cod e = 18517) 141 ML/MIN/1.73 eGFR NON- AMER. (test code = 74128) 122 ML/MIN/1.73 CALC BUN/CREAT (test code = [...] code = 2219) 17 U/L Henry ContrerasVALPROIC [id number] 00:00:00* Test Item Value Reference Range Interpretation Comme nts VALPROIC ACID (test code = 3025) 100.9 UG/ML Henry ContrerasPAP TEST, THINPREP, [id number] 00:00:00* Test Item Value Reference Range Interpretation Comme nts SOURCE: (test code = 8001) Cervical/Endocervical SLIDES: (test code = 8011) 1 LMP: (test code = 8021) 03/2017 SPECIMEN ADEQUACY: (test code = 83662) (NOTE) INTERPRETATION: (test code = 81850) NO EPITHELIAL ABNORMALITY SEE BELOW RD SCIENTIST: (test code = 8101) KANA Merida(ASCP)IAC LOCATION: (test code = 12293) (NOTE) CPT: (test code = 8140) (NOTE) Henry ContrerasHPV HIGH RISK WITH GENOTYPE, [id number] 00:00:00* Test Item Value Reference Range Interpretation Comme nts HPV HIGH RISK INTERP (test c ode = 84586) NEGATIVE HPV 16 (test code = 46459) NEGATIVE HPV 18 (test code = 46778) NEGATIVE HPV, HR, OTHER GENOTYPES (te st code = 93634) NEGATIVE Henry ContrerasPAP TEST, THINPREP, [id number] 00:00:00* Test Item Value Reference Range Interpretation Comme nts SOURCE: (test code = 8001) Cervical/Endocervical SLIDES: (test code = 8011) 1 LMP: (test code = 8021) 03/2017 SPECIMEN ADEQUACY: (test code = 02503) (NOTE) INTERPRETATION: (test code = 91973) NO EPITHELIAL ABNORMALITY SEE BELOW RD SCIENTIST: (test code = 8101) KANA Merida(ASCP)IAC LOCATION: (test code = 40667) (NOTE) CPT: (test code = 8140) (NOTE) Henry ContrerasHPV HIGH RISK WITH GENOTYPE, [id number] 00:00:00* Test Item Value Reference Range Interpretation Comme nts HPV HIGH RISK INTERP (test c ode = 01648) NEGATIVE HPV 16 (test code = 88935) NEGATIVE HPV 18 (test code = 77202) NEGATIVE HPV, HR, OTHER GENOTYPES (te st code = 14099) NEGATIVE Henry ContrerasPAP TEST, THINPREP, [id number] 00:00:00* Test Item Value Reference Range Interpretation Comme nts SOURCE: (test code = 8001) Cervical/Endocervical SLIDES: (test code = 8011) 1 LMP: (test code = 8021) 03/2017 SPECIMEN ADEQUACY: (test code = 04560) (NOTE) INTERPRETATION: (test code = 38662) NO EPITHELIAL ABNORMALITY SEE BELOW RD SCIENTIST: (test code = 8101) KANA Merida(ASCP)IAC LOCATION: (test code = 25586) (NOTE) CPT: (test code = 8140) (NOTE) Henry ConterrasHPV HIGH RISK WITH GENOTYPE, [id number] 00:00:00* Test Item Value Reference Range Interpretation Comme nts HPV HIGH RISK INTERP (test c ode = 90730) NEGATIVE HPV 16 (test code = 93461) NEGATIVE HPV 18 (test code = 77159) NEGATIVE HPV, HR, OTHER GENOTYPES (te st code = 69122) NEGATIVE Henry ContrerasHIV AB/AG COMBO RFLX [id number] 00:00:00* Test Item Value Reference Range Interpretation Comme nts HIV 1/2 4TH GEN, RFLX CONF ( test code = 3514) NON-REACTIVE Henry Quiles AustinGC AND CHLAMYDIA AMPLIFIED, [id number] 00:00:00* Test Item Value Reference Range Interpretation Comme nts GONORRHEA, TMA (test code = 48025) NEGATIVE CHLAMYDIA, TMA (test code = 03681) NEGATIVE Henry Quiles AustinGC AND CHLAMYDIA AMPLIFIED, [id number] 00:00:00* Test Item Value Reference Range Interpretation Comme nts GONORRHEA, TMA (test code = 48281) NEGATIVE CHLAMYDIA, TMA (test code = 16005) NEGATIVE Henry ContrerasHIV AB/AG COMBO RFLX [id number] 00:00:00* Test Item Value Reference Range Interpretation Comme nts HIV 1/2 4TH GEN, RFLX CONF ( test code = 3514) NON-REACTIVE Henry ContrerasGC AND CHLAMYDIA AMPLIFIED, [id number] 00:00:00* Test Item Value Reference Range Interpretation Comme nts GONORRHEA, TMA (test code = 93647) NEGATIVE CHLAMYDIA, TMA (test code = 94882) NEGATIVE Henry ContrerasHIV AB/AG COMBO RFLX [id number] 00:00:00* Test Item Value Reference Range Interpretation Comme nts HIV 1/2 4TH GEN, RFLX CONF ( test code = 3514) NON-REACTIVE Henry ContrerasLIPID [id number] 00:00:00* Test Item Value Reference Range Interpretation Comme nts CHOLESTEROL (test code = 2210) 186 MG/DL TRIGLYCERIDES (test code = 2232) 131 MG/DL HDL CHOLESTEROL (test code = 2220) 67 MG/DL CALC LDL CHOL (test code = 2237) 93 MG/DL RISK RATIO LDL/HDL (test cod e = 2238) 1.39 RATIO Henry ContrerasCBC W/AUTO [id number] 00:00:00* Test Item Value Reference Range Interpretation [...] code = 1015) 152 K/UL Henry ContrerasHEMOGLOBIN [id number] 00:00:00* Test Item Value Reference Range Interpretation Comme shaina HEMOGLOBIN A1c (test code = 10806) 5.2 % Henry [id number] 00:00:00* Test Item Value Reference Range Interpretation Comme nts TSH (test code = 2821) 2.020 UIU/ML Henry ContrerasCOMPREHENSIVE METABOLIC [id number] 00:00:00* Test Item Value Reference Range Interpretation Comme nts GLUCOSE (test code = 2217) 90 MG/DL BUN (test code = 2208) 21 MG/DL CREATININE (test code = 2214) 0.42 MG/DL eGFR AMER. (test cod e = 20257) 145 ML/MIN/1.73 eGFR NON- AMER. (test code = 21523) 126 ML/MIN/1.73 CALC BUN/CREAT (test code = [...] code = 2219) <5 U/L Henry ContrerasLIPID [id number] 00:00:00* Test Item Value Reference Range Interpretation Comme nts CHOLESTEROL (test code = 2210) 186 MG/DL TRIGLYCERIDES (test code = 2232) 131 MG/DL HDL CHOLESTEROL (test code = 2220) 67 MG/DL CALC LDL CHOL (test code = 2237) 93 MG/DL RISK RATIO LDL/HDL (test cod e = 2238) 1.39 RATIO Henry ContrerasCBC W/AUTO [id number] 00:00:00* Test Item Value Reference Range Interpretation [...] code = 1015) 152 K/UL Henry ContrerasHEMOGLOBIN [id number] 00:00:00* Test Item Value Reference Range Interpretation Comme nts HEMOGLOBIN A1c (test code = 95636) 5.2 % Henry [id number] 00:00:00* Test Item Value Reference Range Interpretation Comme nts TSH (test code = 2821) 2.020 UIU/ML Henry ContrerasCOMPREHENSIVE METABOLIC [id number] 00:00:00* Test Item Value Reference Range Interpretation Comme nts GLUCOSE (test code = 2217) 90 MG/DL BUN (test code = 2208) 21 MG/DL CREATININE (test code = 2214) 0.42 MG/DL eGFR AMER. (test cod e = 63014) 145 ML/MIN/1.73 eGFR NON- AMER. (test code = 60916) 126 ML/MIN/1.73 CALC BUN/CREAT (test code = [...] code = 2219) <5 U/L Henry ContrerasLIPID [id number] 00:00:00* Test Item Value Reference Range Interpretation Comme nts CHOLESTEROL (test code = 2210) 186 MG/DL TRIGLYCERIDES (test code = 2232) 131 MG/DL HDL CHOLESTEROL (test code = 2220) 67 MG/DL CALC LDL CHOL (test code = 2237) 93 MG/DL RISK RATIO LDL/HDL (test cod e = 2238) 1.39 RATIO Henry ContrerasCBC W/AUTO [id number] 00:00:00* Test Item Value Reference Range Interpretation [...] code = 1015) 152 K/UL Henry ContrerasHEMOGLOBIN [id number] 00:00:00* Test Item Value Reference Range Interpretation Comme nts HEMOGLOBIN A1c (test code = 96405) 5.2 % Henry [id number] 00:00:00* Test Item Value Reference Range Interpretation Comme nts TSH (test code = 2821) 2.020 UIU/ML Henry ContrerasCOMPREHENSIVE METABOLIC [id number] 00:00:00* Test Item Value Reference Range Interpretation Comme nts GLUCOSE (test code = 2217) 90 MG/DL BUN (test code = 220) 21 MG/DL CREATININE (test code = 2214) 0.42 MG/DL eGFR AMER. (test cod e = 01053) 145 ML/MIN/1.73 eGFR NON- AMER. (test code = 86538) 126 ML/MIN/1.73 CALC BUN/CREAT (test code = [...]
[2024-06-22] MEDS ORDERED: ACETAMINOPHEN 325 MG TABLET ONE (13:23)
[2024-06-22] MEDS ORDERED: LIDOCAINE VISCOUS 2% 10ML ORAL SOLN ONE (13:23)
--- NOTE | 2024-06-22 13:28 | ER ---
Nurse's Notes [facility] Name: Davida Hodges Age: 49 yrs Sex: Female : 1975 Arrival Date: 06/22/2024 Time: 12:38 Bed IW3 Private MD: Diagnosis: Other seizures;Other lesions of oral mucosa Presentation: 06/22 12:41 Chief complaint: EMS states: Pt reports she had multiple seizures today and is jl7 concerned because she bit her cheek. Coronavirus screen: Client denies travel out of the [place] in the last 14 days. Ebola Screen: Patient denies exposure to infectious person. Patient denies travel to an Ebola-affected area in the 21 days before illness onset. Initial Sepsis Screen: Does the patient have a suspected source of infection? No. Patient's initial sepsis screen is negative. Onset of symptoms was June 22, 2024. 12:41 Method Of Arrival: [facility]: [facility] jl7 13:18 Initial Sepsis Screen: Does the patient meet any 2 criteria? No. Patient's initial jl7 sepsis screen is negative. Risk Assessment: Do you want to hurt yourself or someone else? Patient reports no desire to harm self or others. 13:18 Acuity: CARMITA 4 jl7 Triage Assessment: 13:20 General: Appears in no apparent distress. uncomfortable, Behavior is calm, cooperative. jl7 Pain: Complains of pain in left cheek. 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 - Infectious Disease History:: Denies. - Social history:: Smoking status: unknown. Vital Signs: 13:18 BP 122 / 74; Pulse 74; Resp 15; Temp 97.9; Pulse Ox 98% ; jl7 ED Course: 12:38 Patient arrived in ED. ra3 12:39 Mignon Bal [facility] sb4 12:39 Yong Banks MD is Attending Physician. sb4 13:20 Triage completed. jl7 13:20 Arm band placed on right wrist. jl7 13:27 [place], Shalom, MD is Referral Physician. sb4 15:28 No provider procedures requiring assistance completed. Patient did not have IV access ss during this emergency room visit. Administered Medications: 13:35 Drug: Acetaminophen PO 650 mg PO once Route: PO; jl7 13:35 Not Given (Patient Refused): viscous lidocaineliquid (4 %) 5 ml Mucous Membrane once jl7 Outcome: 13:27 Discharge ordered by . sb4 15:28 Discharged to home ambulatory, ss 15:28 Condition: good 15:28 Discharge instructions given to patient, Instructed on discharge instructions, follow up and referral plans. Demonstrated understanding of instructions, follow-up care, medications, 15:29 Patient left the ED. ss Signatures: Samantha Rowell RN RN Jesus Geller RN RN jl7 Mignon Bal, PA-C PA-C sb4 Yuli Simon ra3
--- NOTE | 2024-06-22 13:28 | EDPHYS ---
Physician Documentation [facility] Name: Davida Hodges Age: 49 yrs Sex: Female : 1975 Arrival Date: 06/22/2024 Time: 12:38 Bed IW3 Private MD: ED Physician Yong Banks HPI: 06/22 14:07 This 49 yrs old Female presents to ER via EMS with complaints of Multiple sb4 seizures, bit cheek. 14:07 patient well known to this ED presents via EMS with complaints of cheek pain. states sb4 that she had multiple seizures today and bit the inside of her left cheek. no bleeding. she is not post ictal. was seen here yesterday by me for hemorrhoids/rectal pain. 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 - Infectious Disease History:: Denies. - Social history:: Smoking status: unknown. ROS: 14:09 Cardiovascular: Negative for chest pain, palpitations, and edema, sb4 14:09 ENT: Positive for cheek laceration, 14:09 Neuro: Positive for seizure activity, 14:09 All other systems are negative, sb4 Exam: 14:09 Constitutional: This is a well developed, well nourished patient who is awake, alert, sb4 and in no acute distress. Head/Face: Normocephalic, atraumatic. Eyes: Extra-ocular motions intact. Periorbital areas with no swelling, redness, or edema. ENT: Mucous membranes moist. Respiratory: No increased work of breathing, no retractions or nasal flaring. Skin: Warm, dry with normal turgor. Normal color with no rashes, no lesions, and no evidence of cellulitis. 14:09 ENT: Mouth: small cut, non bleeding, left inner cheek, 14:09 Neuro: Orientation: to person, place, time \T\ situation. Gait: is steady, seizure activity, is not displayed by the patient, not postictal, Vital Signs: 13:18 BP 122 / 74; Pulse 74; Resp 15; Temp 97.9; Pulse Ox 98% ; jl7 MDM: 12:46 Medical Screening Exam initiated sb4 14:10 Data reviewed: vital signs, nurses notes, EMS record, and as a result, I will discharge sb4 patient. Counseling: I had a detailed discussion with the patient and/or guardian regarding the historical points, exam findings, and any diagnostic results supporting the discharge/admit diagnosis, the need for outpatient follow up, for definitive care, the need to transfer to another facility. Administered Medications: 13:35 Drug: Acetaminophen PO 650 mg PO once Route: PO; jl7 13:35 Not Given (Patient Refused): viscous lidocaineliquid (4 %) 5 ml Mucous Membrane once jl7 Disposition: 06/23 07:01 Co-signature as Attending Physician, Yong Banks MD I reviewed the patient's care rn provided by the Advanced Practice Provider and agree with the diagnosis and treatment plan. Disposition Summary: 06/22/24 13:27 Discharge Ordered Notes: Location: Home sb4 Problem: new sb4 Symptoms: have improved sb4 Condition: Stable sb4 Diagnosis - Other seizures sb4 - Other lesions of oral mucosa sb4 Followup: sb4 - With: Shalom Carnes MD - When: As needed - Reason: Recheck today's complaints, Re-evaluation by your physician Discharge Instructions: - Discharge Summary Sheet sb4 - Seizure, Adult sb4 - Mouth Laceration, [id number] sb4 Forms: - Patient Portal Instructions sb4 - Leadership Thank You Letter sb4 Signatures: Yong Banks MD MD rn Leal, Jahala, RN RN [email or web address] Mignon Bal PA-C PA-C sb4
[2024-06-22 19:06] VITALS: BP 122/74; TEMP 97.9; O2SAT 98
== END 2024-06-22 15:29 | disposition home or self-care (01) ==
LOC: ER 12:38
DX: R56.9 Unspecified convulsions (principal); K13.70 Unspecified lesions of oral mucosa; Z88.8 Allergy status to other drugs, medicaments and biological substances
CPT/HCPCS: 99283

== ENCOUNTER 2024-07-09 12:14 | Emergency (ER) | payer SELFPAY ==
--- OUTSIDE RECORDS SUMMARY | 2024-07-09 12:27 | XMS REPORT | Continuity of Care Document ---
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 Phelan [facility] 1.2.840.114 350.1.13.10 4.2.7.2.686 [id number] [facility] 2023-07-23 00:00:00 2023-07-23 00:00:00 Orders Only Doctor Unassigned, Kalona [facility] 1.2.840.114 350.1.13.10 4.2.7.2.686 [id number] [facility] 2023-07-04 16:48:23 2023-07-04 16:48:23 Outpatient [facility] [id number] Henry Quiles [place] 2023-06-18 10:35:36 2023-06-18 10:35:36 Outpatient [facility] [id number] Henry Contreras 2023-06-05 00:00:00 2023-06-05 00:00:00 Orders Only Doctor Unassigned, Kalona [facility] 1.2840.114 350.1.13.10 4.2.7.2.686 [id number] [facility] 2023-06-04 16:00:39 2023-06-04 16:00:39 Outpatient [facility] [id number] Henry Contreras 2023-05-24 15:38:52 2023-05-24 15:38:52 Outpatient [facility] [id number] Henry Quiles Ben 2023-05-22 00:00:00 2023-05-22 00:00:00 Letter (Out) Neurology [facility] 1.2.840.114 350.1.13.10 4.2.7.2.686 [id number] [facility] 2023-05-20 00:00:00 2023-05-20 00:00:00 Orders Only Doctor Unassigned, Kalona [facility] 1.2.840.114 350.1.13.10 4.2.7.2.686 [id number] [facility] 2023-05-17 15:07:14 2023-05-17 15:07:14 Outpatient [facility] [id number] Henry Contreras 2023-03-02 12:27:43 2023-03-02 12:27:43 Outpatient [facility] [id number] Henry Contreras 2023-01-09 17:11:26 2023-01-09 17:11:26 Outpatient [facility] [id number] Henry Contreras 2022-11-04 14:04:00 2022-11-05 11:09:00 Emergency E [facility] [id number] [facility] 2022-09-24 12:33:00 2022-09-24 12:51:00 Emergency Heri Snow [facility] 1.2.840.114 350.1.13.10 4.2.7.2.686 [id number] [facility] 2022-09-22 00:00:00 2022-09-22 00:00:00 Nurse Triage Madhavi Mcginnis [facility] 1.2.840.114 350.1.13.10 4.2.7.2.686 [id number] [facility] 2022-09-18 10:09:00 2022-09-19 14:28:00 Inpatient EM Marly Mendenhall [facility] [id number] 25 [facility] 2022-09-16 22:50:00 2022-09-17 01:40:00 Emergency EM Asim Jack [facility] FABI [id number] [facility] 2022-09-14 14:52:00 2022-09-15 14:00:00 Inpatient EM Vladimir Forbes [facility] TELE [id number] 75 [facility] 2022-09-13 09:34:00 2022-09-13 13:00:00 Emergency EM Brad Woodall [facility] FABI [id number] 75 [facility] 2022-09-10 23:39:00 2022-09-11 11:28:00 Emergency EM Russel Sewell [facility] [id number] 51 [facility] 2022-09-10 18:57:00 2022-09-10 20:20:00 Emergency Lisa Morfin [facility] 1..840.114 350.1.13.10 4.2.7.2.686 [id number] [facility] 2022-09-10 18:57:00 2022-09-10 20:20:00 Emergency X SANDRITA KEY [facility] ERT [id number] [facility] 2022-09-09 20:45:00 2022-09-09 22:46:00 Emergency X SANDRITA KEY [facility] ERT [id number] [facility] 2022-09-09 20:45:00 2022-09-09 22:46:00 Emergency [facility]rita [facility] 1..840.114 350.1.13.10 4.2.7.2.686 [id number] [facility] 2022-09-06 18:09:00 2022-09-07 00:51:00 Emergency X TAYO BOYD [facility] ERT [id number] [facility] 2022-09-06 18:09:00 2022-09-07 00:51:00 Emergency Tayo Boyd [facility] 1..840.114 350.1.13.10 4.2.7.2.686 [id number] [facility] 2022-08-21 14:11:33 2022-08-21 14:11:33 Outpatient [facility] [id number] Henry Contreras 2022-07-17 15:03:48 2022-07-17 15:03:48 Outpatient [facility] [id number] Henry Etta Ben 2021-10-02 15:56:00 2021-10-02 19:00:00 Emergency X JAVED FRANK [facility] ERT [id number] [facility] 2021-10-02 15:56:00 2021-10-02 19:00:00 Emergency Javed Frank [facility] 1.2.840.114 350.1.13.10 4.2.7.2.686 [id number] [facility] 2021-05-05 13:22:00 2021-05-05 14:48:00 Emergency X DEON NUNEZ [facility] ERT [id number] [facility] 2021-05-05 13:22:00 2021-05-05 14:48:00 Emergency Deon Nunez [facility] 1.2.840.114 350.1.13.10 4.2.7.2.686 [id number] [facility] 2021-05-05 00:00:00 2021-05-05 00:00:00 Orders Only Doctor Unassigned, Kalona [facility] 1.2.840.114 350.1.13.10 4.2.7.2.686 [id number] [facility] 2019-12-15 17:11:56 2019-12-15 18:04:00 Emergency Kp Gilliland Marissa [facility] 1.2.840.114 350.1.13.10 4.2.7.2.686 [id number] [facility] 2019-12-15 17:11:56 2019-12-15 18:04:00 Emergency Kp Gilliland [facility] 1.2.840.114 350.1.13.10 4.2.7.2.686 [id number] 2019-12-15 17:11:56 2019-12-15 17:11:56 Emergency Kp ISRAEL [facility] ERT [id number] [facility] 2019-10-25 18:31:31 2019-10-25 19:21:00 Emergency Favian, Kylahnithin [facility] 1.2.840.114 350.1.13.10 4.2.7.2.686 [id number] [facility] 2019-10-25 18:31:31 2019-10-25 19:21:00 Emergency Kristin Miller [facility] 1.2.840.114 350.1.13.10 4.2.7.2.686 [id number] 2019-10-25 18:31:31 2019-10-25 18:31:31 Emergency X KRISTIN MILLER [facility] ERT [id number] [facility] 2019-08-13 13:30:00 2019-08-13 14:36:00 Emergency Floridalma Evans [facility] 1.2.840.114 350.1.13.10 4.2.7.2.686 [id number] [facility] 2019-08-13 13:30:00 2019-08-13 14:36:00 Emergency X FLORIDALMA EVANS [facility] ERT [id number] [facility] 2019-08-13 13:30:00 2019-08-13 14:36:00 Emergency Floridalma Evans [facility] 1.2.840.114 350.1.13.10 4.2.7.2.686 [id number] 2019-07-22 13:42:11 2019-07-22 19:02:00 Emergency X LISA MORFIN [facility] ERT [id number] [facility] 2019-07-22 13:42:11 2019-07-22 19:02:00 Emergency Unknown, Attending Lisa Morfin [facility] 1.2.840.114 350.1.13.10 4.2.7.2.686 [id number] [facility] 2019-07-22 13:42:11 2019-07-22 19:02:00 Emergency Unknown, Attending Lisa Morfin [facility] 1.2.840.114 350.1.13.10 4.2.7.2.686 [id number] 2019-07-13 20:17:19 2019-07-13 21:48:00 Emergency X HENRY OWEN [facility] ERT [id number] [facility] 2019-07-13 20:17:19 2019-07-13 21:48:00 Emergency Henry Owen [facility] 1.2.840.114 350.1.13.10 4.2.7.2.686 [id number] [facility] 2019-07-10 14:26:03 2019-07-10 16:33:00 Emergency X DEBBIE PAYTON [facility] ERT [id number] [facility] 2019-07-10 14:26:03 2019-07-10 16:33:00 Emergency Debbie Payton [facility] 1.2.840.114 350.1.13.10 4.2.7.2.686 [id number] [facility] 2019-07-04 19:09:02 2019-07-04 22:51:00 Emergency X LISA MORFIN [facility] ERT [id number] [facility] 2019-06-30 10:33:08 2019-06-30 13:10:00 Emergency X NUNEZDEON [facility] ERT [id number] [facility] 2019-05-25 11:58:19 2019-05-25 15:37:00 Emergency X DEON NUNEZ [facility] ERT [id number] [facility] 2019-04-09 22:29:37 2019-04-09 23:28:00 Emergency X FLORIDALMA EVANS [facility] ERT [id number] [facility] 2019-01-21 18:38:01 2019-01-21 19:59:00 Emergency Le Ramirez [facility] 1.2.840.114 350.1.13.10 4.2.7.2.686 [id number] [facility] 2019-01-21 18:38:2019-01-21 19:59:00 Emergency Le Ramirez [facility] 1.2.840.114 350.1.13.10 4.2.7.2.686 [id number] Results Test Description Test Time Test Comments Results Result Co mments Source Henry Daniel [id number] 04:20:00* Test Item Value Reference Range Interpretation Comme nts FT4 (test code = FT4) 1.05 ng/dL 0.78-2.19 T3 [id number] 04:20:00* Test Item Value Reference Range Interpretation Comme nts T3UP (test code = T3UP) 40.9 % 23.5-40.5 H Thyroxine (T4) free index in Serum or [id number] 04:19:00* Test Item Value Reference Range Interpretation Comme nts Thyroxine (T4) free index in Serum or Plasma (test code = 09303-7) 1.05 ng/dL 0.78-2.19 N [facility])Thyroid hormone uptake (T-uptake) in Serum or P 2023-11-24 04:18:00* Test Item Value Reference Range Interpretation Comme nts Thyroid hormone uptake (T-up take) in Serum or Plasma (test code = 35778-2) 40.9 % 23.5-40.5 H [facility])URINE DRUG [id number] 00:43:00* Test Item Value Reference Range Interpretation [...] abuse 5 panel - Urine by Screen [id number] 00:40:00 NegativeNegativeNegativeNegativeNegativeNegativeNegativeSk[facility])GXWSTVYYNJ4389-79-01 00:33:00* Test Item Value Reference Range Interpretation [...] /HPF 0-2 Urinalysis panel - Urine by [id number] 00:33:00* Test Item Value Reference Range Interpretation Comme nts Ketones [Presence] in Urine (test code = 27418-1) 15 MG/DL NEG N pH of Urine (test code = 2756-5) 5.5 1 5.0-7.5 N Urobilinogen [Presence] in U rine (test code = 76904-9) 0.2 EU/DL 0.2-1.0 N Specific gravity of Urine (t est code = 2965-2) 1.013 1 1.0-1.025 N Leukocytes [Presence] in Uri ne sediment by Light microscopy (test code = 89804-0) 10 /HPF 0.0-5.0 H Erythrocytes [Presence] in U rine sediment by Light microscopy (test code = 31446-8) 2 /HPF 0.0-2.0 N [facility])VITAMIN [id number] 22:47:00* Test Item Value Reference Range Interpretation Comme nts B12 (test code = B12) 880 pg/mL 239-931 [id number] 22:47:00* Test Item Value Reference Range Interpretation Comme nts FOLATE (test code = FOLATE) 8.9 ng/mL 2.76-20.0 THYROID STIMULATION [id number] 22:47:00* Test Item Value Reference Range Interpretation Comme nts TSH (test code = TSH) 6.62 UIU/ML 0.465-4.68 H Cobalamin (Vitamin B12) [Mass/volume] in Ukvxr1945-06-49 22:47:00* Test Item Value Reference Range Interpretation Comme nts Cobalamin (Vitamin B12) [Mass/volume] in Serum or Plasma (test code = 2132-9) 880 pg/mL 239.0-931.0 N [facility])Folate [Mass/volume] in Serum or Rukwhn9786-69-73 22:47:00* Test Item Value Reference Range Interpretation Comme nts Folate [Mass/volume] in Seru m or Plasma (test code = 2284-8) 8.9 ng/mL 2.76-20.0 [facility])Thyrotropin in Serum or [id number] 22:47:00* Test Item Value Reference Range Interpretation Comme nts Thyrotropin in Serum or Plas ma (test code = 37479-1) 6.62 UIU/ML 0.465-4.68 H [facility])ER SCREEN FOR HIV 1/ 22:46:00* Test Item Value Reference Range Interpretation Comme nts HIV 1/2 AB (test code = SCRN HIV) NEGATIVE NEGATIVE This test is us ed for SCREENING purposes only. All reactive results are prelimenary and confirmation results will follow. HIV 1+2 Ab [Units/volume] in Vhbrc4531-81-03 22:45:00Negative[facility])HEPATITIS C ANTIBODY [id number] 22:28:00* Test Item Value Reference Range Interpretation Comme nts SCRN HCV (test code = SCRN HCV) NEGATIVE NEGATIVE Hepatitis C Anti body test is for screening purposes only. All reactives will be confirmed by additional testing. Hepatitis C virus Ab [Presence] in Uzijt4257-82-39 22:27:[facility] ([facility])2023-11-23 22:01:00* Test Item Value Reference [...] HCG LOT # (test code = UHCGLOT) [id number] HCG EXPIRATION DATE (test code = UHCGEXP) Choriogonadotropin.beta subunit ( kayt5978-38-19 22:01:00* Test Item Value Reference Range Interpretation Comme nts Specimen source [Identifier] of Body fluid (test code = 68340-4) SERUM N Reagent Lot number (test cod e = 79161-4) 1 N [facility])CT HEAD W/O [id number] 22:00:00 [facility] CONCEPTION : 1975 Sex: F[address] [id number] IMAGING REPORTPatient Name: ROBERT, CONCEPTIONDate of Service: 46-27-1103Rzw: 48 Sex: F Order #: [id number] Room: ERSDOB: 1975 X-Ray Number: [id number] Record Number: [id number] Hospital Number: [id number] Physician: LAWRENCE MEJIASOrdering Physician: LAWRENCE MEJIASPROCEDURE: CT HEAD W/O CONTINDICATIONS: dx: psych evalorder sts: r/o rt nephrolithiasispt here for psychevalpsv:mbbExam: CT Brain without contrastComparison: NoneClinical history: Psych eval.Findings:No acute intracranial hemorrhage.Cerebral volume loss.No abnormal extra-axial fluid collections.No intracranialmassNo midline shift.No skull fracture.Impression:1. No acute intracranial hemorrhage.2. Cerebral volume loss.This document has been electronically signed by: Mala Estes MD on11/23/2023 21:59:03Legally authenticated by ANGIE PHAM 2023-11-23 21:59:03CT Head and Orbit - bilateral WO smllpiek9039-60-30 21:59:03ORDER 1400: CT HEAD W/O CONT (LOINC: 30572-8)ORDER DATE: November 24, 2023 12:50:00 AM [facility]CT ABDOMEN/PELVIS [id number] 21:54:00 [facility] CONCEPTION : 1975 Sex: F[address] [id number] IMAGING REPORTPatient Name: ROBERT, CONCEPTIONDate of Service: 92-62-2481Ldj: 48 Sex: F Order #: [id number] Room: ERSDOB: 1975 X-Ray Number: [id number] Record Number: [id number] Hospital Number: [id number] Physician: LAWRENCE MEJIASOrdering Physician: LAWRENCE MEJIASPROCEDURE: CT [...] YUNIOR MCKEON 2023-11-23 21:53:03 CT Abdomen and [id number] 21:53:03ORDER 1500: CT ABDOMEN/PELVIS WITHOUT (LOINC: 90205-2)ORDER DATE: November 24, 2023 12:50:00 AM [facility]2024-06-01 21:31:00* Test Item Value Reference Range [...] 70-99 Fasting glucos e normal <100 MG/DL- [employer] recommendation CALCIUM (test code = [...] of age is not validated by the jewel hole finish opener and may not represent the patients true [...] should be used in the calculation". CREATINE [id number] 21:31:00* Test Item Value Reference Range Interpretation Comme nts CK (test code = CK) 115 U/L 30-135 BLOOD ALCOHOL (ETOH)2023-11-23 21:31:00* Test Item Value Reference Range Interpretation Comme nts ALCOHOL BLOOD LEVEL (test code = ALC BLD) <10 MG/DL 0-10 Results ar e to be used for medical purposes (treatment) only. Not intended for non medical purposes. Ethanol [Mass/volume] in Vcrnx3322-84-74 21:30:00* Test Item Value Reference Range Interpretation Comme nts Ethanol [Mass/volume] in Blo od (test code = 5640-8) <10 0.0-10.0 [facility]Creatine kinase isoenzymes [interpretation] in 2023-11-23 21:30:00* Test Item Value Reference Range Interpretation Comme nts Creatine kinase isoenzymes [interpretation] in Serum or Plasma Narrative (test code = 71363-4) 115 U/L 30.0-135.0 N [facility])Comprehensive metabolic 2000 panel - Serum or P 2023-11-23 21:27:00* Test Item Value Reference Range Interpretation Comme nts Sodium [Moles/volume] in Blood (test code = 2947-0) 137 MMOL/L 137.0-145.0 N Potassium [Moles/volume] in Blood (test code = 6298-4) 4.2 MMOL/L 3.5-5.1 N Chloride [Moles/volume] in Blood (test code = 2069-3) 100 MMOL/L 98.0-107.0 N Carbon dioxide, total [Moles/volume] in Blood (test code = 35914-7) 24 MMOL/L 22.0-30.0 N Urea nitrogen [Mass/volume] in Serum or Plasma (test code = 3094-0) 16 MG/DL 7.0-17.0 N Creatinine [Mass/volume] in Blood (test code = 83313-5) 0.6 MG/DL 0.7-1.2 L Glucose [Mass/volume] in Blood (test code = 2339-0) 80 MG/DL 70.0-99.0 N Calcium [Mass/volume] in Serum or Plasma (test code = 44429-3) 10.3 MG/DL 8.4-10.2 H Protein [Mass/volume] in Serum or Plasma (test code = 2885-2) 9.9 G/DL 6.3-8.2 H Albumin [Presence] in Serum or Plasma (test code = 90362-6) 4.7 G/DL 3.5-5.0 N Bilirubin direct and total panel [Mass/volume] - Serum or Plasma (test code = 58447-0) 0.8 MG/DL 0.2-1.3 N Aspartate aminotransferase [Enzymatic [...] 50 percent [- Reported] (test code = 09991-0) 113.0 mL/min/1.73m2 N Anion gap in Serum or Plasma (test code = 83022-1) 13 mmol/L 4.0-12.0 H [facility])[id number] 21:15:00* Test Item Value Reference Range Interpretation [...] 1.2-7.2 CBC W Auto Differential panel - [id number] 21:15:00* Test Item Value Reference Range Interpretation Comme nts Leukocytes other [Identifier ] in Blood by Automated count (test code = 94705-0) 4.5 K/UL 3.5-10.9 N Erythrocytes [#/volume] in B lood (test code = 21153-0) 4.91 M/UL 4.0-5.0 N Hemoglobin A/Hemoglobin.tota l in Blood (test code = 4546-8) 13.8 G/DL 11.5-15.5 N Hematocrit [Volume Fraction] of Blood (test code = 88940-5) 42.4 % 34.0-46.0 N Erythrocyte mean corpuscular volume [Entitic volume] (test code = 50988-5) 86.4 FL 80.0-98.0 N Erythrocyte mean corpuscular hemoglobin [Entitic mass] (test code = 75630-7) 28.1 PG 28.0-32.0 N Erythrocyte mean corpuscular hemoglobin concentration [Mass/volume] (test code = 10662-5) 32.5 G/DL 32.5-36.5 N Erythrocyte distribution wid th [Ratio] (test code = 25178-1) 14.9 % 11.5-14.5 H Platelets panel - Blood by Automated count (test code = 26799-5) 124 K/UL 150.0-450.0 L Platelet mean volume [Entiti c volume] in Blood by Automated count (test code = 28256-8) 10.0 FL 7.4-10.4 N Neutrophils.segmented/100 leukocytes in Blood (test code = 44568-0) 53.3 % 40.0-75.0 N Lymphocytes Variant/100 leuk ocytes in Blood (test code = 57185-6) 33.9 % 24.0-44.0 N Lymphocytes+Monocytes/100 leukocytes in Blood (test code = 4662-3) 10.0 % 0.0-13.0 N Eosinophils [#/volume] in Bl ood (test code = 82640-1) 2.2 % 0.0-4.0 N Basophils [#/volume] in Bloo d (test code = 69042-4) 0.4 % 0.0-2.0 N Immature granulocytes/100 leukocytes in Blood (test code = 99968-4) 0.2 % 0.0-1.0 N Nucleated erythrocytes [#/vo lume] in Blood (test code = 55972-2) 0 /100 WBC N Neutrophils [#/volume] in Bl ood (test code = 14135-7) 2.4 K/UL 1.2-7.2 N [facility] ([place]PAP TEST, THINPREP, [id number] 16:02:24* Test Item Value Reference Range Interpretation Comme nts SOURCE: (test code = 8001) Cervical/Endoce rvical SLIDES: (test code = 8011) 1 LMP: (test code = 8021) SEE NOTE POST MENOPAUSAL SPECIMEN ADEQUACY: (test code = 28949) (NOTE) Satisfactory for evaluation. Endocervical cells/transformation zone component present. INTERPRETATION: (test code = 84238) NILM/NO EPITH. ABNORMALITY;SEE BELOW --- - NEGATIVE FOR INTRAEPITHELIAL LESION OR MALIGNANCY (NILM) ---- TELEVISION SPECIALIST : (test code = 8101) Jami Smalls LOCATION: (test code = 42624) (NOTE) Specimens proces sed and interpreted at [facility], [address] [place] [id number], , CLIA: [id number] CPT: (test code = 8140) (NOTE) 71933 UNLESS OTH ERWISE INDICATED, COMPUTER AIDED AND TELEVISION SPECIALIST SCREENING PERFORMED. The Pap test is a screening test with an inherent, but low probability of error. Your patient should be reminded to consult you immediately if she experiences any suspicious signs or symptoms, regardless of her Pap test result. An alternate report format containing images or consolidated prior Pap history is available as applicable. HPV HIGH RISK WITH GENOTYPE, [id number] 15:53:52* Test Item Value Reference Range Interpretation Comme nts HPV HIGH RISK INTERP (test code = 88945) NEGATIVE NEGATIVE HPV 16 (test code = 42526) NEGATIVE HPV 18 (test code = 74303) NEGATIVE HPV, HR, OTHER GENOTYPES (test code = 09305) NEGATIVE Testing methodol ogy is real-time PCR utilizing hydrolysis probes with the [employer] system. The test individually detects genotypes 16 and 18, as well as the other 12 high risk types (31,33,35,39,45,51,52,56 ,58,59,66,68). The expected result is negative. A negative result does not rule out the presence of HPV not included in the genotype set, a low level of infection or specimen sampling error. UNLESS OTHERWISE INDICATED, ALL TESTING PERFORMED AT [facility] [address] [place] [address] [facility]: JATIN FELIPE M.D. CLIA NUMBER [id number] [facility] [place]. [id number] HPV HIGH RISK WITH GENOTYPE, [id number] 00:00:00* Test Item Value Reference Range Interpretation Comme nts HPV HIGH RISK INTERP (test c ode = 61376) NEGATIVE HPV 16 (test code = 07420) NEGATIVE HPV 18 (test code = 28454) NEGATIVE HPV, HR, OTHER GENOTYPES (te st code = 95116) NEGATIVE PDFE (test code = PDFReport) PDF Henry Quiles AustinPAP TEST, THINPREP, [id number] 00:00:00* Test Item Value Reference Range Interpretation Comme nts SOURCE: (test code = 8001) Cervical/Endocervical SLIDES: (test code = 8011) 1 LMP: (test code = 8021) SEE NOTE SPECIMEN ADEQUACY: (test code = 14340) (NOTE) INTERPRETATION: (test code = 27236) NILM/NO EPITH. ABNORMALITY;SEE BELOW TELEVISION SPECIALIST: (test code = 8101) Jami Smalls LOCATION: (test code = 44010) (NOTE) CPT: (test code = 8140) (NOTE) Henry Quiles AustinHPV HIGH RISK WITH GENOTYPE, [id number] 00:00:00* Test Item Value Reference Range Interpretation Comme nts HPV HIGH RISK INTERP (test c ode = 15129) NEGATIVE HPV 16 (test code = 31041) NEGATIVE HPV 18 (test code = 53783) NEGATIVE HPV, HR, OTHER GENOTYPES (te st code = 60223) NEGATIVE PDFE (test code = PDFReport) PDF Henry Quiles AustinPAP TEST, THINPREP, [id number] 00:00:00* Test Item Value Reference Range Interpretation Comme nts SOURCE: (test code = 8001) Cervical/Endocervical SLIDES: (test code = 8011) 1 LMP: (test code = 8021) SEE NOTE SPECIMEN ADEQUACY: (test code = 16521) (NOTE) INTERPRETATION: (test code = 03473) NILM/NO EPITH. ABNORMALITY;SEE BELOW TELEVISION SPECIALIST: (test code = 8101) Jami Smalls LOCATION: (test code = 76714) (NOTE) CPT: (test code = 8140) (NOTE) Henry Quiles AustinHPV HIGH RISK WITH GENOTYPE, [id number] 00:00:00* Test Item Value Reference Range Interpretation Comme nts HPV HIGH RISK INTERP (test c ode = 70190) NEGATIVE HPV 16 (test code = 28743) NEGATIVE HPV 18 (test code = 50237) NEGATIVE HPV, HR, OTHER GENOTYPES (te st code = 60338) NEGATIVE PDFE (test code = PDFReport) PDF Henry Quiles AustinPAP TEST, THINPREP, [id number] 00:00:00* Test Item Value Reference Range Interpretation Comme nts SOURCE: (test code = 8001) Cervical/Endocervical SLIDES: (test code = 8011) 1 LMP: (test code = 8021) SEE NOTE SPECIMEN ADEQUACY: (test code = 79083) (NOTE) INTERPRETATION: (test code = 09583) NILM/NO EPITH. ABNORMALITY;SEE BELOW TELEVISION SPECIALIST: (test code = 8101) Jami Smalls LOCATION: (test code = 88703) (NOTE) CPT: (test code = 8140) (NOTE) Henry Quiles AustinPAP TEST, THINPREP, IMAGED [ADDED]2023-10-10 00:00:00* Test Item Value Reference Range Interpretation Comme nts SOURCE: (test code = 8001) Unspecified SLIDES: (test code = 8011) 2 LMP: (test code = 8021) NOT GIVEN SPECIMEN ADEQUACY: (test code = 89535) (NOTE) INTERPRETATION: (test code = 63974) UNSATISFACTORY; SEE BELOW OTHER COMMENTS: (test code = 8081) (NOTE) TELEVISION SPECIALIST: (test code = 8101) Jose Bustillos QC TECHNOLOGIST: (test code = 8111) Jason WhitmanSCT(ASCP),IAC LOCATION: (test code = 52692) (NOTE) CPT: (test code = 8140) (NOTE) Henry F AustinHPV HIGH RISK IF ASC/LSIL, THINPREP [ADDED]2023-10-10 00:00:00* Test Item Value Reference Range Interpretation Comme nts HPV HIGH RISK IF ASC/LSIL, THINPREP (test code = 64611) CRITERIA NOT MET Henry Etta AustinPAP TEST, THINPREP, IMAGED [ADDED]2023-10-10 00:00:00* Test Item Value Reference Range Interpretation Comme nts SOURCE: (test code = 8001) Unspecified SLIDES: (test code = 8011) 2 LMP: (test code = 8021) NOT GIVEN SPECIMEN ADEQUACY: (test code = 26904) (NOTE) INTERPRETATION: (test code = 20781) UNSATISFACTORY; SEE BELOW OTHER COMMENTS: (test code = 8081) (NOTE) TELEVISION SPECIALIST: (test code = 8101) Jose Bustillos QC TECHNOLOGIST: (test code = 8111) Jason WhitmanSCT(ASCP),IAC LOCATION: (test code = 58424) (NOTE) CPT: (test code = 8140) (NOTE) Henry F AustinHPV HIGH RISK IF ASC/LSIL, THINPREP [ADDED]2023-10-10 00:00:00* Test Item Value Reference Range Interpretation Comme nts HPV HIGH RISK IF ASC/LSIL, THINPREP (test code = 41937) CRITERIA NOT MET Henry F AustinPAP TEST, THINPREP, IMAGED [ADDED]2023-10-10 00:00:00* Test Item Value Reference Range Interpretation Comme nts SOURCE: (test code = 8001) Unspecified SLIDES: (test code = 8011) 2 LMP: (test code = 8021) NOT GIVEN SPECIMEN ADEQUACY: (test code = 70181) (NOTE) INTERPRETATION: (test code = 29196) UNSATISFACTORY; SEE BELOW OTHER COMMENTS: (test code = 8081) (NOTE) TELEVISION SPECIALIST: (test code = 8101) Jose Bustillos QC TECHNOLOGIST: (test code = 8111) Jason Whitman,[facility](ASCP),IAC LOCATION: (test code = 51748) (NOTE) CPT: (test code = 8140) (NOTE) Henry Quiles AustinHPV HIGH RISK IF ASC/LSIL, THINPREP [ADDED]2023-10-10 00:00:00* Test Item Value Reference Range Interpretation Comme nts HPV HIGH RISK IF ASC/LSIL, THINPREP (test code = 53692) CRITERIA NOT MET Henry Quiles AustinGONORRHEA, NAAT, THINPREP [ADDED]2023-10-08 00:00:00* Test Item Value Reference Range Interpretation Comme nts GONORRHEA, NAAT, THINPREP (t est code = 04492) NEGATIVE Henry Quiles AustinCHLAMYDIA, NAAT, THINPREP [ADDED]2023-10-08 00:00:00* Test Item Value Reference Range Interpretation Comme nts CHLAMYDIA, NAAT, THINPREP (t est code = 87347) NEGATIVE PDFE (test code = PDFReport) PDF Henry Quiles AustinGONORRHEA, NAAT, THINPREP [ADDED]2023-10-08 00:00:00* Test Item Value Reference Range Interpretation Comme nts GONORRHEA, NAAT, THINPREP (t est code = 66455) NEGATIVE Henry Quiles AustinCHLAMYDIA, NAAT, THINPREP [ADDED]2023-10-08 00:00:00* Test Item Value Reference Range Interpretation Comme nts CHLAMYDIA, NAAT, THINPREP (t est code = 01956) NEGATIVE PDFE (test code = PDFReport) PDF Henry Quiles AustinGONORRHEA, NAAT, THINPREP [ADDED]2023-10-08 00:00:00* Test Item Value Reference Range Interpretation Comme nts GONORRHEA, NAAT, THINPREP (t est code = 71667) NEGATIVE Henry ContrerasCHLAMYDIA, NAAT, THINPREP [ADDED]2023-10-08 00:00:00* Test Item Value Reference Range Interpretation Comme nts CHLAMYDIA, NAAT, THINPREP (t est code = 54486) NEGATIVE PDFE (test code = PDFReport) PDF Henry Griffin, THIRD [id number] 08:14:44* Test Item Value Reference Range Interpretation Comme nts TSH, THIRD GENERATION (test code = 2821) 5.200 UIU/ML 0.400-4.100 H UNLESS OTHERWISE INDICATED, ALL TESTING PERFORMED AT [facility] [address] [place] [address] [facility]: JATIN FELIPE M.D. CLIA NUMBER [id number] [facility] [place]. [id number] 00:00:00* Test Item Value Reference Range Interpretation Comme nts TSH, THIRD GENERATION (test code = 2821) 5.200 UIU/ML Henry [id number] 00:00:00* Test Item Value Reference Range Interpretation Comme nts TSH, THIRD GENERATION (test code = 2821) 5.200 UIU/ML Henry [id number] 00:00:00* Test Item Value Reference Range Interpretation Comme nts TSH, THIRD GENERATION (test code = 2821) 5.200 UIU/ML Henry Griffin THIRD [id number] 23:53:27* Test Item Value Reference Range Interpretation Comme nts TSH, THIRD GENERATION (test code = 2821) 11.100 UIU/ML 0.400-4.100 H COMPREHENSIVE METABOLIC [id number] 23:46:03* Test Item Value Reference Range Interpretation Comme nts GLUCOSE (test code = 2217) 97 MG/DL 70-99 BUN (test code = 2208) 7 MG/DL 6-20 CREATININE (test code = 2214) 0.61 MG/DL 0.60-1.30 eGFR (2020 CKD-EPI) (test code = 30905) 110 ML/MIN/1.73 >60 CALC BUN/CREAT (test code = 2235) 11 RATIO 6-28 SODIUM (test code = 2231) 132 MEQ/L 133-146 L POTASSIUM (test code = 8) 4.1 MEQ/L 3.5-5.4 CHLORIDE (test code = [...] 13 U/L 5-40 CBC W/AUTO DIFF WITH [id number] 08:48:44* Test Item Value Reference Range Interpretation [...] 0.00-0.10 ABS NUCLEATED RBCS (test code = 10522) 0.00 K/UL 0.00-0.11 UNLESS OTHER MONTOYA INDICATED, ALL TESTING PERFORMED AT [facility] [address] [place] [address] [facility]: JATIN FELIPE M.D. CLIA NUMBER [id number] [facility] [place]. [id number] 00:00:00* Test Item Value Reference Range Interpretation Comme nts TSH, THIRD GENERATION (test code = 2821) 11.100 UIU/ML [facility]CR[facility] W/[facility]O [id number] 00:00:00* Test Item Value Reference Range Interpretation [...] ABS NUCLEATED RBCS (test cod e = 23094) 0.00 K/UL Henry ContrerasCOMPREHENSIVE METABOLIC [id number] 00:00:00* Test Item Value Reference Range Interpretation Comme nts GLUCOSE (test code = 2217) 97 MG/DL BUN (test code = 2208) 7 MG/DL CREATININE (test code = 2214) 0.61 MG/DL eGFR (2020 CKD-EPI) (test code = 82221) 110 ML/MIN/1.73 CALC BUN/CREAT (test code = [...] code = 2219) 13 U/L Henry Quiles [id number] 00:00:00* Test Item Value Reference Range Interpretation Comme nts TSH, THIRD GENERATION (test code = 2821) 11.100 UIU/ML Henry ContrerasCBC W/AUTO [id number] 00:00:00* Test Item Value Reference Range Interpretation [...] ABS NUCLEATED RBCS (test cod e = 60847) 0.00 K/UL Henry ContrerasCOMPREHENSIVE METABOLIC [id number] 00:00:00* Test Item Value Reference Range Interpretation Comme nts GLUCOSE (test code = 2217) 97 MG/DL BUN (test code = 2208) 7 MG/DL CREATININE (test code = 2214) 0.61 MG/DL eGFR (2020 CKD-EPI) (test code = 15175) 110 ML/MIN/1.73 CALC BUN/CREAT (test code = [...] (test code = 2219) 13 U/L Henry [id number] 00:00:00* Test Item Value Reference Range Interpretation Comme nts TSH, THIRD GENERATION (test code = 2821) 11.100 UIU/ML Henry ContrerasCBC W/AUTO [id number] 00:00:00* Test Item Value Reference Range Interpretation [...] ABS NUCLEATED RBCS (test cod e = 47077) 0.00 K/UL Henry ContrerasCOMPREHENSIVE METABOLIC [id number] 00:00:00* Test Item Value Reference Range Interpretation Comme nts GLUCOSE (test code = 2217) 97 MG/DL BUN (test code = 2208) 7 MG/DL CREATININE (test code = 2214) 0.61 MG/DL eGFR (2020 CKD-EPI) (test code = 50947) 110 ML/MIN/1.73 CALC BUN/CREAT (test code = [...] (test code = 2219) 13 U/L Henry [id number] 01:13:06* Test Item Value Reference Range Interpretation Comme nts TRANSFERRIN (test code = 4936) 315 MG/DL 200-360 UNLESS OTHERWISE INDICATED, ALL TESTING PERFORMED AT [facility] [address] [place] [address] [facility]: JATIN FELIPE M.D. CLIA NUMBER [id number] [facility] [place]. [id number] LIPID [id number] 01:12:48* Test Item Value Reference Range Interpretation [...] SPECIMENS. FOR MOREINFORMATION, SEE CLIENT ANNOUNCEMENT AT [email or web address] RISK RATIO LDL/HDL (test code = 2237) 1.34 RATIO <3.22 COMPREHENSIVE METABOLIC [id number] 01:12:48* Test Item Value Reference Range Interpretation Comme nts GLUCOSE (test code = 2216) 92 MG/DL 70-99 BUN (test code = 2207) 15 MG/DL 6-20 CREATININE (test code = 221) 0.65 MG/DL 0.60-1.30 eGFR (2020 CKD-EPI) (test code = 29789) 108 ML/MIN/1.73 >60 CALC BUN/CREAT (test code [...] IRON BINDING CAPACITY AND IRON AND % [id number] 01:12:48* Test Item Value Reference Range Interpretation Comme nts IRON, SERUM (test code = 2221) 51 UG/DL 37-145 UNSATURATED IBC (test code = 14643) 356 UG/DL 112-347 H CALC TOTAL IBC (test code = 2076) 407 UG/DL 250-450 CALC % IRON SAT (test code = 2078) 13 % 20-50 L [id number] 00:59:24* Test Item Value Reference Range Interpretation Comme nts FERRITIN (test code = 2074) 20 NG/ML 13-200 LIPID [id number] 00:00:00* Test Item Value Reference Range Interpretation Comme nts CHOLESTEROL (test code = 2209) 191 MG/DL TRIGLYCERIDES (test code = 2) 89 MG/DL HDL CHOLESTEROL (test code = 2219) 74 MG/DL CALC LDL CHOL (test code = 2236) 99 MG/DL RISK RATIO LDL/HDL (test cod e = 2238) 1.34 RATIO Henry F BenCOMPREHENSIVE METABOLIC [id number] 00:00:00* Test Item Value Reference Range Interpretation Comme nts GLUCOSE (test code = 7) 92 MG/DL BUN (test code = 2208) 15 MG/DL CREATININE (test code = 2214) 0.65 MG/DL eGFR (2020 CKD-EPI) (test code = 40631) 108 ML/MIN/1.73 CALC BUN/CREAT (test code = [...] ContrerasIRON BINDING CAPACITY AND IRON AND % [id number] 00:00:00* Test Item Value Reference Range Interpretation Comme nts IRON, SERUM (test code = 2221) 51 UG/DL UNSATURATED IBC (test code = 71476) 356 UG/DL CALC TOTAL IBC (test code = 7) 407 UG/DL CALC % IRON SAT (test code = 2078) 13 % Henry [id number] 00:00:00* Test Item Value Reference Range Interpretation Comme nts FERRITIN (test code = 2074) 20 NG/ML Henry [id number] 00:00:00* Test Item Value Reference Range Interpretation Comme nts TRANSFERRIN (test code = 4936) 315 MG/DL Henry ContrerasLIPID [id number] 00:00:00* Test Item Value Reference Range Interpretation Comme nts CHOLESTEROL (test code = 2210) 191 MG/DL TRIGLYCERIDES (test code = 2232) 89 MG/DL HDL CHOLESTEROL (test code = 2220) 74 MG/DL CALC LDL CHOL (test code = 2237) 99 MG/DL RISK RATIO LDL/HDL (test cod e = 2238) 1.34 RATIO Henry ContrerasCOMPREHENSIVE METABOLIC [id number] 00:00:00* Test Item Value Reference Range Interpretation Comme nts GLUCOSE (test code = 2217) 92 MG/DL BUN (test code = 2208) 15 MG/DL CREATININE (test code = 2214) 0.65 MG/DL eGFR (2020 CKD-EPI) (test code = 68779) 108 ML/MIN/1.73 CALC BUN/CREAT (test code = [...] ContrerasIRON BINDING CAPACITY AND IRON AND % [id number] 00:00:00* Test Item Value Reference Range Interpretation Comme nts IRON, SERUM (test code = 2221) 51 UG/DL UNSATURATED IBC (test code = 99810) 356 UG/DL CALC TOTAL IBC (test code = 2076) 407 UG/DL CALC % IRON SAT (test code = 2078) 13 % Henry [id number] 00:00:00* Test Item Value Reference Range Interpretation Comme nts FERRITIN (test code = 2074) 20 NG/ML Henry [id number] 00:00:00* Test Item Value Reference Range Interpretation Comme nts TRANSFERRIN (test code = 4936) 315 MG/DL Henry ContrerasLIPID [id number] 00:00:00* Test Item Value Reference Range Interpretation Comme nts CHOLESTEROL (test code = 2210) 191 MG/DL TRIGLYCERIDES (test code = 2232) 89 MG/DL HDL CHOLESTEROL (test code = 2220) 74 MG/DL CALC LDL CHOL (test code = 2237) 99 MG/DL RISK RATIO LDL/HDL (test cod e = 2238) 1.34 RATIO Henry ContrerasCOMPREHENSIVE METABOLIC [id number] 00:00:00* Test Item Value Reference Range Interpretation Comme nts GLUCOSE (test code = 2217) 92 MG/DL BUN (test code = 2208) 15 MG/DL CREATININE (test code = 2214) 0.65 MG/DL eGFR (2020 CKD-EPI) (test code = 45792) 108 ML/MIN/1.73 CALC BUN/CREAT (test code = [...] ContrerasIRON BINDING CAPACITY AND IRON AND % [id number] 00:00:00* Test Item Value Reference Range Interpretation Comme nts IRON, SERUM (test code = 222) 51 UG/DL UNSATURATED IBC (test code = 88976) 356 UG/DL CALC TOTAL IBC (test code = 2076) 407 UG/DL CALC % IRON SAT (test code = 2078) 13 % Henry [id number] 00:00:00* Test Item Value Reference Range Interpretation Comme nts FERRITIN (test code = 2075) 20 NG/ML Henry [id number] 00:00:00* Test Item Value Reference Range Interpretation Comme nts TRANSFERRIN (test code = 4936) 315 MG/DL Henry ContrerasHEMOGLOBIN [id number] 03:08:40* Test Item Value Reference Range Interpretation Comme shaina HEMOGLOBIN A1c (test code = 07730) 5.5 % 4.2-5.6 CBC W/AUTO DIFF WITH [id number] 02:29:36* Test Item Value Reference Range Interpretation [...] 0.00-0.10 ABS NUCLEATED RBCS (test code = 09790) 0.00 K/UL 0.00-0.11 CBC W/AUTO [id number] 00:00:00* Test Item Value Reference Range Interpretation [...] ABS NUCLEATED RBCS (test cod e = 47545) 0.00 K/UL Henry ContrerasHEMOGLOBIN [id number] 00:00:00* Test Item Value Reference Range Interpretation Comme nts HEMOGLOBIN A1c (test code = 66308) 5.5 % Henry ContrerasCBC W/AUTO [id number] 00:00:00* Test Item Value Reference Range Interpretation [...] ABS NUCLEATED RBCS (test cod e = 84811) 0.00 K/UL Henry Quiles AustinHEMOGLOBIN [id number] 00:00:00* Test Item Value Reference Range Interpretation Comme nts HEMOGLOBIN A1c (test code = 20420) 5.5 % Henry ContrerasCBC W/AUTO [id number] 00:00:00* Test Item Value Reference Range Interpretation [...] ABS NUCLEATED RBCS (test cod e = 76157) 0.00 K/UL Henry Quiles AustinHEMOGLOBIN [id number] 00:00:00* Test Item Value Reference Range Interpretation Comme nts HEMOGLOBIN A1c (test code = 07106) 5.5 % Henry ContrerasDRUGS OF [id number] 05:03:00* Test Item Value Reference Range Interpretation [...] 200 ng/mL Opiates 300 ng/mL URINALYSIS WITH [id number] 04:56:00* Test Item Value Reference Range Interpretation [...] (test code = USPERM) /HPF NONE URINE [id number] 04:53:00* Test Item Value Reference Range Interpretation [...] the FDA and the [employer] ([employer]) are more stringent than those required for this test. Therefore, the result should be interpreted with caution and close attention to other clinical and epidemiological data [id number] 16:00:00* Test Item Value Reference Range Interpretation Comme nts SALICYLATE (test code = 94B) <3.0 mg/dL 15.0-30.0 L LIVER [id number] 15:49:00* Test Item Value Reference Range Interpretation [...] code = 31A) <7 IU/L 10-49 L [id number] 15:48:00* Test Item Value Reference Range Interpretation Comme nts ACETAMINPH (test code = 94M) <0.2 mg/dL 1.2-2.5 L ALCOHOL BLOOD (ETOH)2022-11-04 15:48:00* Test Item Value Reference Range Interpretation Comme nts ETOH (test code = HALC) ETHANOL The result is to be used only for medical purposes ALCOHOL (test code = 56A) <10 mg/dL See_Comment [Automated [employer] ge] The system which generated this result transmitted reference range: <=10. The reference range was not used to interpret this result as normal/abnormal. 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 Old healed fractures of the distal tibia and fibular noted.Soft tissues: Unremarkable.IMPRESSION: No acute findings.Electronically signed by: Nikko Santiago MD 11/04/2022 3:10 PM CDT [id number] BEDSIDE [id number] 11:51:00* Test Item Value Reference Range Interpretation Comme nts GLUCOSE BEDSIDE TESTING (karen t code = GLUBED) 79 MG/DL 70-119 N GLUCOSE BEDSIDE [id number] 06:23:00* Test Item Value Reference Range Interpretation Comme nts GLUCOSE BEDSIDE TESTING (karen t code = GLUBED) 80 MG/DL 70-119 N BASIC METABOLIC [id number] 05:12:00* Test Item Value Reference Range Interpretation [...] 2.0 <2.0 indicates None DetectedPerformed At: [facility] [id number] [place], [place] [id number] Michael Reeves MD Ph:[phone] GLUCOSE BEDSIDE [id number] 19:51:00* Test Item Value Reference Range Interpretation Comme nts GLUCOSE BEDSIDE TESTING (karen t code = GLUBED) 129 MG/DL 70-119 H OSMOLALITY [id number] 17:56:00* Test Item Value Reference Range Interpretation Comme nts OSMOLALITY SERUM (test code = OSMO) 269 mOsm/kg 275-300 L THYROID STIMULATING [id number] 17:56:00* Test Item Value Reference Range Interpretation Comme nts THYROID STIMULATING HORMONE (test code = TSH) 4.190 mc IU/ML 0.340-4.820 N GLUCOSE BEDSIDE [id number] 15:49:00* Test Item Value Reference Range Interpretation [...] code = VALP) 37.5 mcG/ML 50.0-100.0 L [id number] 14:26:00* Test Item Value Reference Range Interpretation Comme nts AMMONIA (test code = AMM) 29.0 mcMOL/L 11.0-32.0 N GLUCOSE BEDSIDE [id number] 11:51:00* Test Item Value Reference Range Interpretation Comme nts GLUCOSE BEDSIDE TESTING (karen t code = GLUBED) 88 MG/DL 70-119 N GLYCOSYLATED HEMOGLOBIN (HA1C)2022-09-18 06:53:00* Test Item Value Reference Range Interpretation Comme nts GLYCOSYLATED HEMOGLOBIN (HA1 C) (test code = GLYHGB) 5.2 % IS-A1C 4.5-5.6 N ESTIMATED AVERAGE [id number] 06:53:00* Test Item Value Reference Range Interpretation [...] to interpret this result as normal/abnormal. UR [id number] 21:28:00* Test Item Value Reference Range Interpretation Comme nts UR SODIUM RANDOM (test code = JESUSITA) 93 mmol/L 40-200 N UR POTASSIUM RANDOM (test code = KU) 54.8 mmol/L 25-125 N NO ESTABLISHED NORMAL RANGES FOR RANDOM SPECIMENS. UR CHLORIDE RANDOM (test code = CLU) 164 mmol/L 110-150 H UR OSMOLALITY [id number] 21:28:00* Test Item Value Reference Range Interpretation Comme nts UR OSMOLALITY RANDOM (test c ode = OSMOU) 475 mOsm/kg 100-1400 N CBC W/O [id number] 20:05:00* Test Item Value Reference Range Interpretation [...] = MPV) 9.5 fL 6.8-11.2 N LACTIC [id number] 19:35:00* Test Item Value Reference Range Interpretation Comme nts LACTIC ACID (test code = LACT) 1.0 mmol/L 0.4-2.0 N HCG SERUM [id number] 19:31:00* Test Item Value Reference Range Interpretation Comme nts HCG SERUM QUAL (test code = HCGQL) Negative SCREEN NEG - CT HEAD/BRAIN W/O [id number] 18:59:00 [facility] 1975 Sex: F Patient Name: BHUMIKA JONES Unit No: [id number] EXAMS: CPT CODE: [id number] CT HEAD/BRAIN W/O CONT 92950 Location: H3 CT head, conducted on 09/17/22 at 1837 hours COMPARISON EXAMS:Head CT exam of 09/17/22 at 00:06 hours TECHNIQUE: CT examination of the brain was performed without contrast on [facility] scanner. Scanning conducted from skull [...] MD Dictated Date/Time: 09/17/2022 (1858) Technologist: MALA Jenkins)(CT) CTDI: DLP: Trnscrpt: 09/17/2022 (1858) NadiyaDAS6 DENIZ Lugo NAME: [address] PHYS: Valentina Mattson [place] [address] : 1975 AGE: 47 SEX: F LOC: GregorioERMED 20 PHONE #: [phone] EXAM DATE: 09/17/2022 STATUS: ADM IN FAX #: [phone] RAD #: D/C DT PAGE 1 Signed Report [facility] [id number] EXAMS: CPT CODE: [id number] CT HEAD/BRAIN W/O CONT 41031 (Continued) Orig Print D/T: S: 09/17/2022 (190) DENIZ Lugo NAME: [address] PHYS: Valentina [place]son [place] [address] : 1975 AGE: 47 SEX: F LOC: Ginger.ERMED 20 PHONE #: [phone] EXAM DATE: 09/17/2022 STATUS: ADM IN FAX #: [phone] RAD #: D/C DT PAGE 2 Signed ReportURINALYSIS [id number] 16:28:00* Test Item Value Reference Range Interpretation [...] >0 /UL NONE-SQepi DRUGS OF ABUSE SCREEN [id number] 16:28:00* Test Item Value Reference Range Interpretation [...] interpret this result as normal/abnormal. TROP-I HIGH OGYKWKJTYBO7645-52-04 16:26:00* Test Item Value Reference Range Interpretation [...] and URLs may vary bymethod. BASIC METABOLIC [id number] 16:25:00* Test Item Value Reference Range Interpretation [...] interpret this result as normal/abnormal. HEPATIC FUNCTION [id number] 16:25:00* Test Item Value Reference Range Interpretation [...] ode = CK) 92 Unit/L 26-192 N [id number] 16:25:00* Test Item Value Reference Range Interpretation Comme nts LIPASE (test code = LIP) 57 Unit/L 114-286 L - CT HEAD/BRAIN W/O [id number] 00:32:00 [facility] : 1975 Sex: FPatient Name: BHUMIKA JONES Unit No: [id number] EXAMS: CPT CODE: [id number] CT HEAD/BRAIN W/OCONT 30912 EXAM: - CT HEAD/BRAIN W/O CONT LOCATION: [...] Trnscrpt: 09/17/2022 (31) NadiyaMKW1 DENIZ Lugo NAME: ROB[address] PHYS: IGNACIO.Deirdre - Asim Jack [place] [address] : 1975 AGE: 47 SEX: F LOC: GregorioERS PHONE #: [phone] EXAM DATE: 09/16/2022 STATUS: REG ER FAX #: [phone] RAD #: D/C DT PAGE 1 Signed Report Patient Name: BHUMIKA JONES Unit No: [id number] EXAMS: CPT CODE: [id number] CT HEAD/BRAIN W/O CONT 91295 (Continued) Orig Print D/T: S: 09/17/2022 (34) DENIZ Lugo NAME: ROBERT[address] PHYS: IGNACIO. - Asim Jack [place] [address] : 1975 AGE: 47 SEX: F LOC: B.ERS PHONE #: [phone] EXAM DATE: 023 STATUS: REG ER FAX #: [phone] RAD #: D/C DT PAGE 2 Signed ReportTROP-I HIGH [id number] 00:13:00* Test Item Value Reference Range Interpretation [...] and URLs may vary bymethod. COMPREHENSIVE METABOLIC [id number] 00:11:00* Test Item Value Reference Range Interpretation [...] interpret this result as normal/abnormal. CBC W/AUTO [id number] 23:59:00* Test Item Value Reference Range Interpretation [...] K/mm3 0.0-0.05 N - XR CHEST 1 [id number] 23:34:00 [facility] : 1975 Sex: F [place]: E St: PRE -- Patient Name: BHUMIKA JONES Unit No: [id number] EXAMS: CPT CODE: [id number] XR CHEST 1 V 29600 EXAMINATION: - XR CHEST 1 V CLINICAL INDICATION: Female, 47 years year old with cough COMPARISON: [facility] 2022 FINDINGS: Single view(s) of [...] By: NadiyaJH12 Orig Print D/T: S: 09/16/2022 (8748) [facility] [address] [place] [address] PHYS: IGNACIO.02 - Asim Jack MD, Vigyz00777 : 1975 AGE: 47 SEX: F LOC: MARCOS PHONE #: [phone] EXAM DATE: 09/16/2022 STATUS: PRE ER FAX #: [phone] RAD NO: DC Dt: PAGE 1 Signed ReportCARBAMAZEPINE (TEGRETOL) 2022-09-15 06:12:00* Test Item Value Reference Range Interpretation Comme nts CARBAMAZEPINE (TEGRETOL) (test code = CARB) 1.5 ug/mL 4.0-12.0 L In conjunction w ith other antiepileptic drugs Therapeutic 4.0 - 8.0 Toxicity 9.0 - 12.0 Carbamazepine alone Therapeutic 8.0 - 12.0 Detection Limit = 2.0 <2.0 indicates None DetectedPerformed At: [facility] [address] [id number] Michael Reeves MD Ph:[phone] VALPROIC ACID (DEPAKENE)2022-09-15 06:12:00* Test Item Value Reference Range Interpretation Comme nts VALPROIC ACID (DEPAKENE) (te st code = VALP) 80.6 mcG/ML 50.0-100.0 N COMPREHENSIVE METABOLIC [id number] 06:00:00* Test Item Value Reference Range Interpretation [...] interpret this result as normal/abnormal. CBC W/AUTO [id number] 05:37:00* Test Item Value Reference Range Interpretation [...] NRBC#) 0.00 K/mm3 0.0-0.05 N GLUCOSE BEDSIDE [id number] 20:03:00* Test Item Value Reference Range Interpretation Comme nts GLUCOSE BEDSIDE TESTING (karen t code = GLUBED) 117 MG/DL 70-119 N DRUGS OF ABUSE SCREEN [id number] 11:42:00* Test Item Value Reference Range Interpretation [...] result as normal/abnormal. - CT HEAD/BRAIN W/O [id number] 11:37:00 [facility] : 1975 Sex: F Patient Name: BHUMIKA JONES Unit No: [id number] EXAMS: CPT CODE: [id number] CT HEAD/BRAIN W/O CONT 62713 EXAMINATION: - CT HEAD/BRAIN W/O CONT COMPARISON: None HISTORY: Seizure LOCATION CODE: [id number]: CT of the Brain without contrast. Axial [...] MD; Jim Jaimes MD Dictated Date/Time: 09/14/2022 (8557) Technologist: ASUNCION EARLDI: DLP: Trnscrpt: 09/14/2022 (6407) NadiyaAG38 DENIZ Lugo NAME: BHUMIKA JONES [facility] PHYS: Vladimir Menchaca MD [address] [place] [address] : 1975 AGE: 47 SEX: [place] [address] LOC: NEHA 10 PHONE #: [phone] EXAM DATE: 09/14/2022 STATUS: ADM IN FAX #: [phone] RAD #: D/C DT PAGE 1 Signed Report Patient Name: BHUMIKA JONES Unit No: [id number] EXAMS: CPT CODE: [id number] CT HEAD/BRAIN W/O CONT 85336 (Continued) Orig Print D/T: S: 09/14/2022 (1140) DENIZ Lugo NAME: BHUMIKA JONES [facility] PHYS: Vladimir Menchaca MD [address] [place] [address] : 1975 AGE: 47 SEX: RAFI BUTT [facility] LOC: NEHA 10 PHONE #: [phone] EXAM DATE: 09/14/2022 STATUS: ADM IN FAX #: [phone] RAD #: D/C DT PAGE 2 Signed [...] AVOIDED DUE TO POSSIBLE HEPARINCONTAMINATION HCG SERUM [id number] 06:51:00* Test Item Value Reference Range Interpretation [...] CK) 268 Unit/L 26-192 H CBC W/AUTO [id number] 03:43:00* Test Item Value Reference Range Interpretation [...] = NRBC#) 0.00 K/mm3 0.0-0.05 N URINALYSIS [id number] 03:41:00* Test Item Value Reference Range Interpretation [...] RARE /LPF NONE - XR CHEST 2 [id number] 02:06:00 [facility] JONESSILASBAI : 1975 Sex: F FAX: TylerbrandanSuleman [phone] [place]: [address]: REG Patient Name: ROBERTBHUMIKA Unit No: [id number] EXAMS: CPT CODE: [id number] XR CHEST 2 V 26966 EXAM: - XR CHEST 2 V HISTORY: [...] NadiyaMKM4 Orig Print D/T: S: 09/14/2022 (208) [facility] NAME: [address] PHYS: Suleman [place], [place] [address] : 1975 AGE: 47 SEX: F LOC: MARCOS PHONE #: [phone] EXAM DATE: 09/14/2022 STATUS: REG ERFAX #: [phone] RAD NO: DC Dt: PAGE 1 Signed ReportCOMPREHENSIVE METABOLIC [id number] 12:49:00* Test Item Value Reference Range Interpretation [...] used to interpret this result as normal/abnormal. [id number] 12:49:00* Test Item Value Reference Range Interpretation Comme nts MAGNESIUM (test code = MAG) 1.7 MG/DL 1.6-2.6 N CBC W/AUTO [id number] 12:36:00* Test Item Value Reference Range Interpretation [...] RARE /LPF NONE DRUGS OF ABUSE SCREEN [id number] 00:33:00* Test Item Value Reference Range Interpretation [...] 300 ng/mL UA RFLX MICR CULT IF [id number] 00:30:00* Test Item Value Reference Range Interpretation [...] culture: Suprapubic PainSpecimen Description: CLEAN CATCHBASIC METABOLIC [id number] 00:18:00* Test Item Value Reference Range Interpretation [...] 8.9 mg/dl 8.0-10.5 N HEPATIC FUNCTION PANEL [id number] 00:18:00* Test Item Value Reference Range Interpretation [...] ALKP) 113 Units/L 50.0-136.0 N HCG SERUM [id number] 00:18:00* Test Item Value Reference Range Interpretation Comme nts HCG SERUM QUAL (test code = HCGQL) NEGATIVE NEGATIVE [id number] 00:18:00* Test Item Value Reference Range Interpretation Comme nts ALCOHOL (test code = ALC) 0.00 gm/dL 0.00-0.00 N ETHYL ALCOHOL VA LUES - INTERPRETATION: 0.050 GM/DL - NOT INTOXICATED 0.100 GM/DL - INTOXICATED 0.350-0.450 GM/DL - SEVERELY INTOXICATED 0.550 GM/DL- FATAL INTOXICATION Coronavirus 2019 nCoV Gqipcsx1620-80-45 00:09:00* Test Item Value Reference Range Interpretation Comme nts Coronavirus 2019 nCoV Bedside (test code = IDRJN11TRLER) Negative NEGATIVE Negative results should be treated as presumptive and ifinconsistent with clinical signs and symptoms, or necessaryfor patient management, should be tested with an alternativemolecular assay. Negative results do not preclude UAJS-XfZ-2unzuuelew and should not be used as the sole basis forpatient management decisions. Negative results should beconsidered in the context of a patient's recent exposures,history, presence of clinical signs and symptoms consistentwith COVID-19. CBC W/AUTO [id number] 23:58:00* Test Item Value Reference Range Interpretation [...] X10 3uL 0.00-0.01 N COMP. METABOLIC PANEL (22437)2022-09-07 02:12:41* Test Item Value Reference Range Interpretation Comme nts NA (test code = 5282565382) 133 mmol/L 135-145 L K (test code = 2868852037) 4.4 mmol/L 3.5-5.0 CL (test code = 1352011439) 102 mmol/L 98-108 CO2 TOTAL (test code = 1728165174) 25 mmol/L 23-31 AGAP (test code = 2218025817) 6 2-16 BUN (test code = 6637738530) 22 mg/dL 7-23 GLUCOSE (test code = 5648624689) 97 mg/dL 70-110 CREATININE (test code = 7157995147) 0.40 mg/dL 0.50-1.04 L TOTAL BILI (test code = 7258068685) 0.3 mg/dL 0.1-1.1 CALCIUM (test code = 3721986689) 8.9 mg/dL 8.6-10.6 T PROTEIN (test code = 9045225234) 7.7 g/dL 6.3-8.2 ALBUMIN (test code = 9118114163) 4.0 g/dL 3.5-5.0 ALK PHOS (test code = 2747079395) 104 U/L 34-122 ALTv (test code = 1742-6) 15 U/L 5-35 AST(SGOT) (test code = 8475969150) 22 U/L 13-40 eGFR (test code = 6465017664) 170.4 mL/min/1.73m2 HANNAH (test code = HANNAH) [...] imaging tests). Lab Interpretation (test code = 71966-1) Abnormal [facility] WITH [id number] 02:01:20* Test Item Value Reference Range Interpretation Comme nts WBC (test code = 6690-2) 6.17 See_Comment [Automated PushPage] The system which generated this result transmitted [...] 32.9 g/dL 31.6-35.1 RDW-SD (test code = 94357-4) 48.1 fL 39.0-49.9 RDW-CV (test code = 788-0) 14.7 % 12.0-15.5 PLT (test code = 777-3) 272 See_Comment [Automated messa ge] The system which generated this result transmitted reference range: 166 - 358 10*3/?L. The reference range was not used to interpret this result as normal/abnormal. MPV (test code = 76819-0) 9.6 fL 9.5-12.9 NRBC/100 WBC (test code = 4962843211) 0.0 See_Comment [Automated [employer] ssage] The system which generated this result transmitted reference range: 0.0 - 10.0 /100 WBCs. The reference range was not used to interpret this result as normal/abnormal. NRBC x10^3 (test code = 6858650454) See_Comment [Automated messa ge] The system which generated this result transmitted reference range: 10*3/?L. The reference range was not used to interpret this result as normal/abnormal. GRAN MAT (NEUT) % (test code = 770-8) 42.2 % IMM GRAN % (test code = 1966030969) 0.20 % LYMPH % (test code = 736-9) 38.2 % MONO % (test code = 5905-5) 12.6 % EOS % (test code = 713-8) 5.8 % BASO % (test code = 706-2) 1.0 % GRAN MAT x10^3(ANC) (test code = 2323585967) 2.60 10*3/uL 1.88-7.09 IMM GRAN x10^3 (test code = 4825268818) 0.00-0.06 LYMPH x10^3 (test code = 731-0) 2.36 10*3/uL 1.32-3.29 MONO x10^3 (test code = 742-7) 0.78 10*3/uL 0.33-0.92 EOS x10^3 (test code = 711-2) 0.36 10*3/uL 0.03-0.39 BASO x10^3 (test code = 704-7) 0.06 10*3/uL 0.01-0.07 Lab Interpretation (test code = 49753-8) [facility]normal [facility] ([facility]OVID-19) by RT-PCR (HIGH RISK) 2020-08-19 00:00:00* Test Item Value Reference Range Interpretation Comme nts SARS-CoV-2 INTERPRETATION (t est code = 60049) NEGATIVE SOURCE (test code = 83843) NOT SPECIFIED Henry F YsgmilWWBU-PlR-8 (COVID-19) by RT-PCR (HIGH RISK)2020-08-19 00:00:00* Test Item Value Reference Range Interpretation Comme nts SARS-CoV-2 INTERPRETATION (t est code = 72242) NEGATIVE SOURCE (test code = 98379) NOT SPECIFIED Henry F OyjniyUVUX-YjU-9 (COVID-19) by RT-PCR (HIGH RISK)2020-08-19 00:00:00* Test Item Value Reference Range Interpretation Comme nts SARS-CoV-2 INTERPRETATION (t est code = 60728) NEGATIVE SOURCE (test code = 79583) NOT SPECIFIED [facility] AustinHPV HIGH RISK WITH GENOTYPE, [id number] 00:00:00* Test Item Value Reference Range Interpretation Comme nts HPV HIGH RISK INTERP (test c ode = 61641) NEGATIVE HPV 16 (test code = 19792) NEGATIVE HPV 18 (test code = 43873) NEGATIVE HPV, HR, OTHER GENOTYPES (te st code = 63899) NEGATIVE [facility] F AustinPAP TEST, THINPREP, [id number] 00:00:00* Test Item Value Reference Range Interpretation Comme nts SOURCE: (test code = 8001) Cervical/Endocervical SLIDES: (test code = 8011) 1 LMP: (test code = 8021) 06/2017 SPECIMEN ADEQUACY: (test code = 51676) (NOTE) INTERPRETATION: (test code = 92092) NILM/NO EPITH. ABNORMALITY;SEE BELOW TELEVISION SPECIALIST: (test code = 8101) [place], CT(ASCP) IAC LOCATION: (test code = 33054) (NOTE) CPT: (test code = 8140) (NOTE) Henry Quiles AustinHPV HIGH RISK WITH GENOTYPE, [id number] 00:00:00* Test Item Value Reference Range Interpretation Comme nts HPV HIGH RISK INTERP (test c ode = 25389) NEGATIVE HPV 16 (test code = 33178) NEGATIVE HPV 18 (test code = 57837) NEGATIVE HPV, HR, OTHER GENOTYPES (te st code = 74233) NEGATIVE Henry Quiles AustinPAP TEST, THINPREP, [id number] 00:00:00* Test Item Value Reference Range Interpretation Comme nts SOURCE: (test code = 8001) Cervical/Endocervical SLIDES: (test code = 8011) 1 LMP: (test code = 8021) 06/2017 SPECIMEN ADEQUACY: (test code = 85650) (NOTE) INTERPRETATION: (test code = 88316) NILM/NO EPITH. ABNORMALITY;SEE BELOW TELEVISION SPECIALIST: (test code = 8101) [place], CT(ASCP) IAC LOCATION: (test code = 76125) (NOTE) CPT: (test code = 8140) (NOTE) Herny Quiles AustinHPV HIGH RISK WITH GENOTYPE, [id number] 00:00:00* Test Item Value Reference Range Interpretation Comme nts HPV HIGH RISK INTERP (test c ode = 19813) NEGATIVE HPV 16 (test code = 86093) NEGATIVE HPV 18 (test code = 94251) NEGATIVE HPV, HR, OTHER GENOTYPES (te st code = 03443) NEGATIVE Henry Quiles AustinPAP TEST, THINPREP, [id number] 00:00:00* Test Item Value Reference Range Interpretation Comme nts SOURCE: (test code = 8001) Cervical/Endocervical SLIDES: (test code = 8011) 1 LMP: (test code = 8021) 06/2017 SPECIMEN ADEQUACY: (test code = 12331) (NOTE) INTERPRETATION: (test code = 33909) NILM/NO EPITH. ABNORMALITY;SEE BELOW TELEVISION SPECIALIST: (test code = 8101) Rita Bettye,CT(ASCP) IAC LOCATION: (test code = 09624) (NOTE) CPT: (test code = 8140) (NOTE) Henry Quiles AustinCT HEAD WO [id number] 22:34:12Impression: 1. ?No acute intracranial process. 2. [...] and physicalexamination.[facility] HospitalXR CERVICAL SPINE 2 [id number] 22:29:40No acute osseous abnormality. Preliminary Report Dictated by Resident: Chi Cervantes MD., have reviewed this study and agree with theabove report.EXAM: XR CERVICAL SPINE 2 VW HISTORY: neck pain COMPARISON: 07/13/2019 FINDINGS: The vertebral bodies are normal in height and in normal alignment. Theintervertebral disc spaces are unremarkable. The prevertebral soft tissuesare within normal limits. [place], Radiant Results Inft User - 07/22/2019 4:30 PM CSTEXAM: XR CERVICAL SPINE 2VWHISTORY: neck pain COMPARISON: 07/13/2019FINDINGS:The vertebral bodies are normal in height and innormal alignment. Theintervertebral disc spaces are unremarkable. The prevertebral soft tissuesare within normal limits.IMPRESSIONNo acute osseous abnormality.Preliminary Report Dictated by Resident:Carl Braden, Chi Antonio MD., have reviewed this study and agree with theabove report.[facility] HospitalCBC WITH SBNAJDGNOCGS2701-39-96 21:46:00* Test Item Value Reference Range Interpretation Comme nts WBC (test code = 6690-2) See_Comment [Automated Geekangelsa ge] The system which generated this result transmitted reference range: 4.30 - 11.10 10*3/?L. The reference range was not used to interpret this result as normal/abnormal. RBC (test code = 789-8) See_Comment L [Automated Geekangelsa [employer]] The system which generated this result transmitted [...] 32.2 g/dL 31.6-35.1 RDW-SD (test code = 22980-0) 45.1 fL 39-49.9 RDW-CV (test code = 788-0) 14.6 % 12-15.5 PLT (test code = 777-3) See_Comment L [Automated messa ge] The system which generated this result transmitted reference range: 166 - 358 10*3/?L. The reference range was not used to interpret this result as normal/abnormal. MPV (test code = 34645-4) 9.0 fL 9.5-12.9 L NRBC/100 WBC (test code = 3119882618) See_Comment [Automated me ssage] The system which generated this result transmitted reference range: 0.0 - 10.0 /100 WBCs. The reference range was not used to interpret this result as normal/abnormal. NRBC x10^3 (test code = 8593697445) <0.01 See_Comment [Automated messa ge] The system which generated this result transmitted reference range: 10*3/?L. The reference range was not used to interpret this result as normal/abnormal. GRAN MAT (NEUT) % (test code = 770-8) 51.3 % IMM GRAN % (test code = 1622152782) 0.40 % LYMPH % (test code = 736-9) 24.4 % MONO % (test code = 5905-5) 23.1 % EOS % (test code = 713-8) 0.4 % BASO % (test code = 706-2) 0.4 % GRAN MAT x10^3(ANC) (test code = 2237386166) 2.48 10*3/uL 1.88-7.09 IMM GRAN x10^3 (test code = 0428927581) <0.03 0-0.06 LYMPH x10^3 (test code = 731-0) 1.18 10*3/uL 1.32-3.29 L MONO x10^3 (test code = 742-7) 1.12 10*3/uL 0.33-0.92 H EOS x10^3 (test code = 711-2) <0.03 0.03-0.39 L BASO x10^3 (test code = 704-7) <0.03 0.01-0.07 Lab Interpretation (test code = 67073-6) [facility]normal [facility] 2 [id number] 03:28:03No acute osseous abnormality. Preliminary Report Dictated [...] withthe above report. [facility] HospitalValproic Acid Uyzmh2847-83-07 08:03:22* Test Item Value Reference Range Interpretation Comme nts Valproic Acid Level (test co de = Valproic Acid Level) 57.6 ug/mL(g) 50.0-100.0 Hemoglobin [id number] 09:36:00* Test Item Value Reference Range Interpretation Comme nts Hemoglobin A1c (test code = Hemoglobin A1c) 5.0 % 4.8-5.9 Non Diabetic 4.8-5.9%Diabetic <7.0% CT Shoulder w/o Contrast Npla5914-89-89 16:49:13Patient: BHUMIKA JONES Date/Time01/09/2019 16:14 CDTReason for [...] Adam FSigned (Electronic Signature): 01/09/2019 4:49 pmRPR Rgjxwshedaq5069-59-61 21:33:20* Test Item Value Reference Range Interpretation [...] 04-23-2020 N XR Shoulder Complete 2+ Views Vmjs5716-89-13 15:41:25Patient: BHUMIKA JONES Date/Time01/07/2019 15:25 CDTReason for [...] CSigned (Electronic Signature): 01/07/2019 3:41 pmThyroid Stimulating Twjaywv9794-20-86 03:07:04* Test Item Value Reference Range Interpretation Comme nts TSH (test code = TSH) 9.650 mIU/mL 0.270-4.200 H Lipid Xtgtd0464-88-32 03:07:03* Test Item Value Reference Range Interpretation Comme nts Cholesterol Total (test code = Cholesterol Total) 199 mg/dL 0-200 RISK OF HEART DISEASEPublished by [employer] Association Analyte Optimal Borderline Increased RiskCHOL [...] is LDL/HDL Ratio=LDL Calc/HDL Chol HCG Qualitative Pghbr6170-97-11 02:33:13* Test Item Value Reference Range Interpretation Comme nts HCG, Serum Qual (test code = HCG, Serum Qual) Negative Lot # (test code = Lot #) [id number] N Expiration Dt (test code = Expiration Dt) 2020-04-23 N Neg Control (test code = Neg Control) Negative Pos Control (test code = Pos Control) Positive Internal QC (test code = Int ernal QC) Acceptable Drugs of Abuse Urine [id number] 18:58:11* Test Item Value Reference Range Interpretation [...] = Cannabinoid Screen Ur) Negative Negative Alcohol Rvpgc3897-67-03 18:47:34* Test Item Value Reference Range Interpretation Comme nts Ethanol Level (test code = Ethanol Level) <0.00 g/dL 0.00-0.01 Intoxicated 0.08 0 g/dL or more Ethanol Inst (test code = Ethanol Inst) <0 N Comprehensive Metabolic Dltwo5449-05-84 18:47:33* Test Item Value Reference Range Interpretation [...] A/G Ratio) 1.0 ratio N Comprehensive Metabolic Siviv8354-74-92 18:47:33* Test Item Value Reference Range Interpretation [...] is not provided, and the patient is -Armenian, multiply by 1.212. If sex is not [...] the National Kidney Foundation, http://nkdep.nih.gov Comprehensive Metabolic Mkrzq7763-10-54 18:47:33* Test Item Value Reference Range Interpretation [...] is not provided, and the patient is -Armenian, multiply by 1.212. If sex is not [...] is not provided, and the patient is -Armenian, multiply by 1.212. If sex is not [...] Kidney Foundation, http://nkdep.nih.gov Complete Blood Count with Snzymnluygeq5337-78-09 18:15:23* Test Item Value Reference Range Interpretation [...] code = IPF) 0 % N Automated Wzmnwybpgpew2351-45-51 18:15:23* Test Item Value Reference Range Interpretation Comme nts Neutro Auto (test code = Sunny tro Auto) 42.1 % 36.0-70.0 Lymph Auto (test code = Lymph Auto) 40.0 % 12.0-44.0 Borden Auto (test code = Borden Auto) 12.2 % 0.0-11.0 H Eos, Auto (test code = Eos, Auto) 4.9 % 0.0-7.0 Basophil Auto (test code = B asophil Auto) 0.6 % 0.0-2.0 Neutro Absolute (test code = Neutro Absolute) 2.2 x10 1.6-7.4 Lymph Absolute (test code = Lymph Absolute) 2.06 x10 .50-4.60 Borden Absolute (test code = M richa Absolute) .63 x10 .00-1.20 Eos Absolute (test code = Eo s Absolute) 0.25 x10 0.00-0.74 Baso Absolute (test code = B aso Absolute) 0.03 x10 0.00-0.21 IG [id number] 18:15:23* Test Item Value Reference Range Interpretation Comme nts IG (test code = IG) 0.2 % 0.0-5.0 IG Abs (test code = IG Abs) 0 x10 N VALPROIC [id number] 00:00:00* Test Item Value Reference Range Interpretation Comme nts VALPROIC ACID (test code = 3025) 69.8 UG/ML Henry Quiles [place] [id number] 00:00:00* Test Item Value Reference Range Interpretation Comme nts VALPROIC ACID (test code = 3025) 69.8 UG/ML Henry Quiles [place] [id number] 00:00:00* Test Item Value Reference Range Interpretation Comme nts VALPROIC ACID (test code = 3025) 69.8 UG/ML Henry Quiles [place] CULTURE, NO [id number] 00:00:00* Test Item Value Reference Range Interpretation Comme nts URINE CULTURE, NO SENS (test code = 67858) SPECIMEN NUMBER: [id number] Henry Quiles [place] CULTURE, NO [id number] 00:00:00* Test Item Value Reference Range Interpretation Comme nts URINE CULTURE, NO SENS (test code = 39822) SPECIMEN NUMBER: [id number] Henry Quiles AustinURINE CULTURE, NO [id number] 00:00:00* Test Item Value Reference Range Interpretation Comme nts URINE CULTURE, NO SENS (test code = 55642) SPECIMEN NUMBER: [id number] Henry Quiles AustinIRON BINDING CAPACITY AND IRON AND % [id number] 00:00:00* Test Item Value Reference Range Interpretation Comme nts IRON, SERUM (test code = 2222) 42 UG/DL UNSATURATED IBC (test code = 69168) 279 UG/DL CALC TOTAL IBC (test code = 2077) 321 UG/DL CALC % IRON SAT (test code = 2079) 13 % Henry Quiles [id number] 00:00:00* Test Item Value Reference Range Interpretation Comme nts FERRITIN (test code = 2075) 15 NG/ML Henry Quiles [id number] 00:00:00* Test Item Value Reference Range Interpretation Comme nts TRANSFERRIN (test code = 4936) 269 MG/DL Henry Quiles AustinFOLIC [id number] 00:00:00* Test Item Value Reference Range Interpretation Comme nts FOLIC ACID (test code = 2695) 5.4 UG/L Henry Quiles AustinIRON BINDING CAPACITY AND IRON AND % [id number] 00:00:00* Test Item Value Reference Range Interpretation Comme nts IRON, SERUM (test code = 2222) 42 UG/DL UNSATURATED IBC (test code = 25415) 279 UG/DL CALC TOTAL IBC (test code = 7) 321 UG/DL CALC % IRON SAT (test code = 2079) 13 % Henry Quiles [id number] 00:00:00* Test Item Value Reference Range Interpretation Comme nts FERRITIN (test code = 2075) 15 NG/ML Henry F [id number] 00:00:00* Test Item Value Reference Range Interpretation Comme nts TRANSFERRIN (test code = 4936) 269 MG/DL Henry F AustinFOLIC [id number] 00:00:00* Test Item Value Reference Range Interpretation Comme nts FOLIC ACID (test code = 2695) 5.4 UG/L Henry F AustinIRON BINDING CAPACITY AND IRON AND % [id number] 00:00:00* Test Item Value Reference Range Interpretation Comme nts IRON, SERUM (test code = 2222) 42 UG/DL UNSATURATED IBC (test code = 29925) 279 UG/DL CALC TOTAL IBC (test code = 7) 321 UG/DL CALC % IRON SAT (test code = 9) 13 % Henry Quiles [id number] 00:00:00* Test Item Value Reference Range Interpretation Comme nts FERRITIN (test code = 5) 15 NG/ML Henry Quiles [id number] 00:00:00* Test Item Value Reference Range Interpretation Comme nts TRANSFERRIN (test code = 4936) 269 MG/DL Henry F AustinFOLIC [id number] 00:00:00* Test Item Value Reference Range Interpretation Comme nts FOLIC ACID (test code = 2695) 5.4 UG/L Henry Quiles AustinCULTURE, URINE [ADDED]2018-06-12 00:00:00* Test Item Value Reference Range Interpretation Comme nts CULTURE, URINE (test code = 68933) SPECIMEN NUMBER: [id number] Henry Quiles AustinCULTURE, URINE [ADDED]2018-06-12 00:00:00* Test Item Value Reference Range Interpretation Comme nts CULTURE, URINE (test code = 89287) SPECIMEN NUMBER: [id number] Henry ContrerasCULTURE, URINE [ADDED]2018-06-12 00:00:00* Test Item Value Reference Range Interpretation Comme nts CULTURE, URINE (test code = 19507) SPECIMEN NUMBER: [id number] [facility]AUTO [id number] 00:00:00* Test Item Value Reference Range Interpretation [...] = 1015) 184 K/UL Henry ContrerasCOMPREHENSIVE METABOLIC [id number] 00:00:00* Test Item Value Reference Range Interpretation Comme nts GLUCOSE (test code = 2217) 86 MG/DL BUN (test code = 2208) 16 MG/DL CREATININE (test code = 2214) 0.45 MG/DL eGFR AMER. (test cod e = 49284) 141 ML/MIN/1.73 eGFR NON- AMER. (test code = 68973) 122 ML/MIN/1.73 CALC BUN/CREAT (test code = [...] code = 2219) 17 U/L Henry ContrerasVALPROIC [id number] 00:00:00* Test Item Value Reference Range Interpretation Comme nts VALPROIC ACID (test code = 3025) 100.9 UG/ML Henry ContrerasCBC W/AUTO [id number] 00:00:00* Test Item Value Reference Range Interpretation [...] = 1015) 184 K/UL Henry ContrerasCOMPREHENSIVE METABOLIC [id number] 00:00:00* Test Item Value Reference Range Interpretation Comme nts GLUCOSE (test code = 2217) 86 MG/DL BUN (test code = 2208) 16 MG/DL CREATININE (test code = 2214) 0.45 MG/DL eGFR AMER. (test cod e = 42706) 141 ML/MIN/1.73 eGFR NON- AMER. (test code = 22685) 122 ML/MIN/1.73 CALC BUN/CREAT (test code = [...] code = 2219) 17 U/L Henry ContrerasVALPROIC [id number] 00:00:00* Test Item Value Reference Range Interpretation Comme nts VALPROIC ACID (test code = 3025) 100.9 UG/ML Henry ContrerasCBC W/AUTO [id number] 00:00:00* Test Item Value Reference Range Interpretation [...] = 1015) 184 K/UL Henry ContrerasCOMPREHENSIVE METABOLIC [id number] 00:00:00* Test Item Value Reference Range Interpretation Comme nts GLUCOSE (test code = 2217) 86 MG/DL BUN (test code = 2208) 16 MG/DL CREATININE (test code = 2214) 0.45 MG/DL eGFR AMER. (test cod e = 36272) 141 ML/MIN/1.73 eGFR NON- AMER. (test code = 97094) 122 ML/MIN/1.73 CALC BUN/CREAT (test code = [...] code = 2219) 17 U/L Henry ContrerasVALPROIC [id number] 00:00:00* Test Item Value Reference Range Interpretation Comme nts VALPROIC ACID (test code = 3025) 100.9 UG/ML Henry Quiles BenPAP TEST, THINPREP, [id number] 00:00:00* Test Item Value Reference Range Interpretation Comme nts SOURCE: (test code = 8001) Cervical/Endocervical SLIDES: (test code = 8011) 1 LMP: (test code = 8021) 03/2017 SPECIMEN ADEQUACY: (test code = 06748) (NOTE) INTERPRETATION: (test code = 90426) NO EPITHELIAL ABNORMALITY SEE BELOW TELEVISION SPECIALIST: (test code = 8101) KANA Merida(ASCP)IAC LOCATION: (test code = 52995) (NOTE) CPT: (test code = 8140) (NOTE) Henry Etta BenHPV HIGH RISK WITH GENOTYPE, [id number] 00:00:00* Test Item Value Reference Range Interpretation Comme nts HPV HIGH RISK INTERP (test c ode = 72521) NEGATIVE HPV 16 (test code = 65291) NEGATIVE HPV 18 (test code = 31420) NEGATIVE HPV, HR, OTHER GENOTYPES (te st code = 10748) NEGATIVE Henry Etta BenPAP TEST, THINPREP, [id number] 00:00:00* Test Item Value Reference Range Interpretation Comme nts SOURCE: (test code = 8001) Cervical/Endocervical SLIDES: (test code = 8011) 1 LMP: (test code = 8021) 03/2017 SPECIMEN ADEQUACY: (test code = 06609) (NOTE) INTERPRETATION: (test code = 50149) NO EPITHELIAL ABNORMALITY SEE BELOW TELEVISION SPECIALIST: (test code = 8101) KANA Merida(ASCP)IAC LOCATION: (test code = 56763) (NOTE) CPT: (test code = 8140) (NOTE) Henry Quiles AustinHPV HIGH RISK WITH GENOTYPE, [id number] 00:00:00* Test Item Value Reference Range Interpretation Comme nts HPV HIGH RISK INTERP (test c ode = 05070) NEGATIVE HPV 16 (test code = 54978) NEGATIVE HPV 18 (test code = 09534) NEGATIVE HPV, HR, OTHER GENOTYPES (te st code = 82151) NEGATIVE Henry ContrerasPAP TEST, THINPREP, [id number] 00:00:00* Test Item Value Reference Range Interpretation Comme nts SOURCE: (test code = 8001) Cervical/Endocervical SLIDES: (test code = 8011) 1 LMP: (test code = 8021) 03/2017 SPECIMEN ADEQUACY: (test code = 84152) (NOTE) INTERPRETATION: (test code = 42572) NO EPITHELIAL ABNORMALITY SEE BELOW TELEVISION SPECIALIST: (test code = 8101) KANA Merida(ASCP)IAC LOCATION: (test code = 40206) (NOTE) CPT: (test code = 8140) (NOTE) Henry Quiles AustinHPV HIGH RISK WITH GENOTYPE, [id number] 00:00:00* Test Item Value Reference Range Interpretation Comme nts HPV HIGH RISK INTERP (test c ode = 64435) NEGATIVE HPV 16 (test code = 38652) NEGATIVE HPV 18 (test code = 23808) NEGATIVE HPV, HR, OTHER GENOTYPES (te st code = 08166) NEGATIVE Henry ContrerasHIV AB/AG COMBO RFLX [id number] 00:00:00* Test Item Value Reference Range Interpretation Comme nts HIV 1/2 4TH GEN, RFLX CONF ( test code = 3514) NON-REACTIVE Henry F AustinGC AND CHLAMYDIA AMPLIFIED, [id number] 00:00:00* Test Item Value Reference Range Interpretation Comme nts GONORRHEA, TMA (test code = 46809) NEGATIVE CHLAMYDIA, TMA (test code = 03318) NEGATIVE Henry ContrerasGC AND CHLAMYDIA AMPLIFIED, [id number] 00:00:00* Test Item Value Reference Range Interpretation Comme nts GONORRHEA, TMA (test code = 54012) NEGATIVE CHLAMYDIA, TMA (test code = 68847) NEGATIVE Henry ContrerasHIV AB/AG COMBO RFLX [id number] 00:00:00* Test Item Value Reference Range Interpretation Comme nts HIV 1/2 4TH GEN, RFLX CONF ( test code = 3514) NON-REACTIVE Henry ContrerasGC AND CHLAMYDIA AMPLIFIED, [id number] 00:00:00* Test Item Value Reference Range Interpretation Comme nts GONORRHEA, TMA (test code = 48166) NEGATIVE CHLAMYDIA, TMA (test code = 87758) NEGATIVE Henry ContrerasHIV AB/AG COMBO RFLX [id number] 00:00:00* Test Item Value Reference Range Interpretation Comme nts HIV 1/2 4TH GEN, RFLX CONF ( test code = 3514) NON-REACTIVE Henry ContrerasLIPID [id number] 00:00:00* Test Item Value Reference Range Interpretation Comme nts CHOLESTEROL (test code = 2210) 186 MG/DL TRIGLYCERIDES (test code = 2232) 131 MG/DL HDL CHOLESTEROL (test code = 2220) 67 MG/DL CALC LDL CHOL (test code = 2237) 93 MG/DL RISK RATIO LDL/HDL (test cod e = 2238) 1.39 RATIO Henry ContrerasCBC W/AUTO [id number] 00:00:00* Test Item Value Reference Range Interpretation [...] code = 1015) 152 K/UL Henry ContrerasHEMOGLOBIN [id number] 00:00:00* Test Item Value Reference Range Interpretation Comme shaina HEMOGLOBIN A1c (test code = 10053) 5.2 % Henry [id number] 00:00:00* Test Item Value Reference Range Interpretation Comme nts TSH (test code = 2821) 2.020 UIU/ML Henry ContrerasCOMPREHENSIVE METABOLIC [id number] 00:00:00* Test Item Value Reference Range Interpretation Comme nts GLUCOSE (test code = 2217) 90 MG/DL BUN (test code = 2208) 21 MG/DL CREATININE (test code = 2214) 0.42 MG/DL eGFR AMER. (test cod e = 88490) 145 ML/MIN/1.73 eGFR NON- AMER. (test code = 71995) 126 ML/MIN/1.73 CALC BUN/CREAT (test code = [...] code = 2219) <5 U/L Henry ContrerasLIPID [id number] 00:00:00* Test Item Value Reference Range Interpretation Comme nts CHOLESTEROL (test code = 2210) 186 MG/DL TRIGLYCERIDES (test code = 2232) 131 MG/DL HDL CHOLESTEROL (test code = 2220) 67 MG/DL CALC LDL CHOL (test code = 2237) 93 MG/DL RISK RATIO LDL/HDL (test cod e = 2238) 1.39 RATIO Henry ContrerasC W/AUTO [id number] 00:00:00* Test Item Value Reference Range Interpretation [...] code = 1015) 152 K/UL Henry ContrerasHEMOGLOBIN [id number] 00:00:00* Test Item Value Reference Range Interpretation Comme shaina HEMOGLOBIN A1c (test code = 50342) 5.2 % Henry Quiles [id number] 00:00:00* Test Item Value Reference Range Interpretation Comme shaina TSH (test code = 2821) 2.020 UIU/ML Henry Quiles BellevueCOMPREHENSIVE METABOLIC [id number] 00:00:00* Test Item Value Reference Range Interpretation Comme nts GLUCOSE (test code = 2217) 90 MG/DL BUN (test code = 2208) 21 MG/DL CREATININE (test code = 2214) 0.42 MG/DL eGFR AMER. (test cod e = 94923) 145 ML/MIN/1.73 eGFR NON- AMER. (test code = 02178) 126 ML/MIN/1.73 CALC BUN/CREAT (test code = [...] code = 2219) <5 U/L Henry ContrerasLIPID [id number] 00:00:00* Test Item Value Reference Range Interpretation Comme nts CHOLESTEROL (test code = 2210) 186 MG/DL TRIGLYCERIDES (test code = 2232) 131 MG/DL HDL CHOLESTEROL (test code = 2220) 67 MG/DL CALC LDL CHOL (test code = 2237) 93 MG/DL RISK RATIO LDL/HDL (test cod e = 2238) 1.39 RATIO Henry ContrerasCBC W/AUTO [id number] 00:00:00* Test Item Value Reference Range Interpretation [...] code = 1015) 152 K/UL Henry ContrerasHEMOGLOBIN [id number] 00:00:00* Test Item Value Reference Range Interpretation Comme nts HEMOGLOBIN A1c (test code = 83954) 5.2 % Henry [id number] 00:00:00* Test Item Value Reference Range Interpretation Comme nts TSH (test code = 2821) 2.020 UIU/ML Henry ContrerasCOMPREHENSIVE METABOLIC [id number] 00:00:00* Test Item Value Reference Range Interpretation Comme nts GLUCOSE (test code = 2217) 90 MG/DL BUN (test code = 2208) 21 MG/DL CREATININE (test code = 2214) 0.42 MG/DL eGFR AMER. (test cod e = 35864) 145 ML/MIN/1.73 eGFR NON- AMER. (test code = 03770) 126 ML/MIN/1.73 CALC BUN/CREAT (test code = [...]
[2024-07-09] MEDS ORDERED: NA CHLORIDE 0.9% 0 ML ONE (12:32)
--- NOTE | 2024-07-09 12:54 | RAD REPORT ---
EXAM: Chest Pa And Lat (2 Views) HISTORY: 49 years Female CHEST PAIN COMPARISON: 01/21/2024 FINDINGS: LUNGS/PLEURA: The lungs are clear. No pleural effusions or pneumothorax. No pulmonary edema. MEDIASTINUM: The mediastinal silhouette is within normal limits. CARDIAC: The cardiac silhouette is within normal limits. UPPER ABDOMEN: No significant abnormality. BONES: No acute abnormality. Bridging osteophytes. LINES/TUBES/OTHER: N/A IMPRESSION: No evidence of acute cardiopulmonary disease.
--- NOTE | 2024-07-09 13:08 | EDPHYS ---
Physician Documentation [facility] Name: Davida Hodges Age: 49 yrs Sex: Female : 1975 Arrival Date: 07/09/2024 Time: 12:14 Bed 11 Private MD: ED Physician Pascual Lundy HPI: 07/09 13:03 This 49 yrs old Female presents to ER via EMS with complaints of Chest Pain > ry 29 y/o, Headache > 24hrs Old. 13:03 The patient or guardian reports chest pain that is located primarily in the anterior [facility] chest wall. Onset: just prior to arrival, this morning. The pain does not radiate. Associated signs and symptoms: The patient has no apparent associated signs or symptoms. The chest pain is described as aching. Modifying factors: The symptoms are alleviated by nothing. the symptoms are aggravated by nothing. Severity of pain: At its worst the pain was mild in the emergency department the pain is unchanged. The patient has not experienced similar symptoms in the past. Historical: - Allergies: 12:28 Tegretol; ss 12:28 Depakote; ss 12:28 CARBAMAZEPINE DERIVATIVES; ss - PMHx: 12:28 Seizure; ss - Family history:: not pertinent. ROS: 13:03 Constitutional: Negative for fever, chills, and weight loss, Eyes: Negative for injury, ry pain, redness, and discharge, ENT: Negative for injury, pain, and discharge, Neck: Negative for injury, pain, and swelling, Respiratory: Negative for shortness of breath, cough, wheezing, and pleuritic chest pain, Abdomen/GI: Negative for abdominal pain, nausea, vomiting, diarrhea, and constipation, Back: Negative for injury and pain, : Negative for injury, bleeding, discharge, and swelling, MS/Extremity: Negative for injury and deformity, Skin: Negative for injury, rash, and discoloration, Neuro: Negative for headache, weakness, numbness, tingling, and seizure, Psych: Negative for depression, anxiety, suicide ideation, homicidal ideation, and hallucinations, Allergy/Immunology: Negative for hives, rash, and allergies, Endocrine: Negative for neck swelling, polydipsia, polyuria, polyphagia, and marked weight changes, Hematologic/Lymphatic: Negative for swollen nodes, abnormal bleeding, and unusual bruising, 13:03 Cardiovascular: Positive for chest pain, Exam: 13:03 Constitutional: This is a well developed, well nourished patient who is awake, alert, ry and in no acute distress. Head/Face: Normocephalic, atraumatic. Eyes: Pupils equal round and reactive to light, extra-ocular motions intact. Lids and lashes normal. Conjunctiva and sclera are non-icteric and not injected. Cornea within normal limits. Periorbital areas with no swelling, redness, or edema. ENT: Nares patent. No nasal discharge, no septal abnormalities noted. Tympanic membranes are normal and external auditory canals are clear. Oropharynx with no redness, swelling, or masses, exudates, or evidence of obstruction, uvula midline. Mucous membranes moist. Neck: Trachea midline, no thyromegaly or masses palpated, and no cervical lymphadenopathy. Supple, full range of motion without nuchal rigidity, or vertebral point tenderness. No Meningismus. Chest/axilla: Normal chest wall appearance and motion. Nontender with no deformity. No lesions are appreciated. Cardiovascular: Regular rate and rhythm with a normal S1 and S2. No gallops, murmurs, or rubs. Normal PMI, no JVD. No pulse deficits. Respiratory: Lungs have equal breath sounds bilaterally, clear to auscultation and percussion. No rales, rhonchi or wheezes noted. No increased work of breathing, no retractions or nasal flaring. Abdomen/GI: Soft, non-tender, with normal bowel sounds. No distension or tympany. No guarding or rebound. No evidence of tenderness throughout. Back: No spinal tenderness. No costovertebral tenderness. Full range of motion. Skin: Warm, dry with normal turgor. Normal color with no rashes, no lesions, and no evidence of cellulitis. MS/ Extremity: Pulses equal, no cyanosis. Neurovascular intact. Full, normal range of motion., bilateral aka Neuro: Awake and alert, GCS 15, oriented to person, place, time, and situation. Cranial nerves II-XII grossly intact. Motor strength 5/5 in all extremities. Sensory grossly intact. Cerebellar exam normal. Normal gait. Psych: Awake, alert, with orientation to person, place and time. Behavior, mood, and affect are within normal limits. Vital Signs: 12:27 BP 157 / 96; Pulse 66; Resp 16; Temp 98.4(O); Pulse Ox 100% on R/A; Pain 10/10; ss 12:27 Pain Scale: Adult ss [place] Coma Score: 13:03 Eye Response: spontaneous(4). Motor Response: obeys commands(6). Verbal Response: ry oriented(5). Total: 15. MDM: 12:21 Medical Screening Exam initiated ry 13:05 HEART Score: History: Slightly Suspicious (0), ECG: Non specific repolarization ry disturbance / LBTB / PM (1), Age: > 45 and < 65 years (1), Risk Factors: 1 or 2 risk factors (1), [+ Family HX] [Obesity]. The patient was given aspirin in the Emergency Department. MITESH Risk Score: TOTAL SCORE = 0. Data reviewed: vital signs, nurses notes, EKG. Consideration of Admission/Observation Escalation of care including admission/observation considered. I considered the following discharge prescriptions or medication management in the emergency department Medications were administered in the Emergency Department. See MAR. Independent interpretation of the following test(s) in the Emergency Department EKG: See my EKG interpretation above. 13:08 ED course: DW PT TO ALLOW LABS , PT REFUSED AND LEFT. [facility] 07/09 12:24 Order name: Chest Pa And Lat (2 Views) XRAY [facility] 07/09 12:24 Order name: EKG; Complete Time: 12:24 [facility] 07/09 12:24 Order name: EKG - Nurse/Tech; Complete Time: 12:27 ry Administered Medications: 12:29 Not Given (EMS ADMINISTERED): aspirinchewable tablet 81 mg PO once ss 13:01 Not Given (Patient Eloped): ns 0.9% 500 ml 500 ml IV at 1 bolus once; to be given as a jb4 bolus over 30 minutes Disposition Summary: 07/09/24 13:08 Discharge Ordered Notes: Location: Home ry Problem: new ry Symptoms: have improved ry Condition: Undetermined ry Diagnosis - Chest pain, unspecified ry - Bipolar disorder, unspecified ry Followup: ry - With: Private Physician - When: Upon discharge from the Emergency Department - Reason: Recheck today's complaints, Continuance of care, Re-evaluation by your physician Discharge Instructions: - Discharge Summary Sheet ry - Nonspecific Chest Pain, Adult ry - Nonspecific Chest Pain, Adult, [id number] ry - Aspirin and Your Heart ry - Managing Bipolar Disorder ry - Mixed Bipolar Disorder ry Forms: - Medication Reconciliation Form ry - Antibiotic Education ry - Prescription Opioid Use ry - Patient Portal Instructions ry - Leadership Thank You Letter ry Signatures: Dispatcher [employer] Pascual Gamble MD MD cha Blanchard, Shelby RN RN ss Flo Diaz RN jb4
--- NOTE | 2024-07-09 13:08 | ER ---
Nurse's Notes [facility] [place] Name: Davida Hodges Age: 49 yrs Sex: Female : 1975 Arrival Date: 07/09/2024 Time: 12:14 Bed 11 Private MD: Diagnosis: Chest pain, unspecified;Bipolar disorder, unspecified Presentation: 07/09 12:22 Chief complaint: Patient states: chest pain and headache that began Saturday. Ebola ss Screen: Patient denies exposure to infectious person. Patient denies travel to an Ebola-affected area in the 21 days before illness onset. 12:22 Method Of Arrival: EMS: [facility] ss 12:27 Coronavirus screen: Client denies travel out of the [place] in the last 14 days. Initial ss Sepsis Screen: Does the patient meet any 2 criteria? No. Patient's initial sepsis screen is negative. Does the patient have a suspected source of infection? No. Patient's initial sepsis screen is negative. Risk Assessment: Do you want to hurt yourself or someone else? Patient reports no desire to harm self or others. Onset of symptoms was July 06, 2024. Care prior to arrival: Medication(s) given: ASA, 81 mg, x 4, IV initiated. 22 GA, in the left hand, Glucose check: 102. 12:27 Acuity: CARMITA 3 ss Historical: - Allergies: 12:28 Tegretol; ss 12:28 Depakote; ss 12:28 CARBAMAZEPINE DERIVATIVES; ss - PMHx: 12:28 Seizure; ss - Family history:: not pertinent. Screenin:30 [facility] ED Fall Risk Assessment (Adult) History of falling in the last 3 months, jb4 including since admission No falls in past 3 months (0 pts) Confusion or Disorientation No (0 pts) Intoxicated or Sedated No (0 pts) Impaired Gait No (0 pts) Mobility Assist Device Used No (0 pt) Altered Elimination No (0 pt) Score/Fall Risk Level 0 - 2 = Low Risk Oriented to surroundings, Maintained a safe environment. Abuse screen: Denies threats or abuse. Nutritional screening: No deficits noted. Tuberculosis screening: No symptoms or risk factors identified. Assessment: 12:30 General: Appears in no apparent distress. comfortable, Behavior is calm, cooperative, jb4 appropriate for age. Pain: Complains of pain in chest Pain does not radiate. Pain currently is 10 out of 10 on a pain scale. Neuro: Level of Consciousness is awake, alert, obeys commands, Oriented to person, place, time, situation. Cardiovascular: Patient's skin is warm and dry. Respiratory: Airway is patent Respiratory effort is even, unlabored, Respiratory pattern is. Derm: Skin is intact, Skin is pink, warm \T\ dry. Musculoskeletal: Circulation, motion, and sensation intact. Range of motion: intact in all extremities. Vital Signs: 12:27 BP 157 / 96; Pulse 66; Resp 16; Temp 98.4(O); Pulse Ox 100% on R/A; Pain 10/10; ss 12:27 Pain Scale: Adult ss [place] Coma Score: 13:03 Eye Response: spontaneous(4). Motor Response: obeys commands(6). Verbal Response: ry oriented(5). Total: 15. ED Course: 12:21 Patient arrived in ED. 12:21 Pascual Lundy MD is Attending Physician. [facility] 12:28 Triage completed. ss 12:28 Arm band placed on right wrist. ss 12:30 director part on. Pulse ox on. NIBP on. ss 12:37 intact, bleeding controlled, No redness/swelling at site. Pressure dressing applied, Pt jb4 d/c'ed own IV. 12:53 Chest Pa And Lat (2 Views) XRAY In Process Unspecified. EDMS Administered Medications: 12:29 Not Given (EMS ADMINISTERED): aspirinchewable tablet 81 mg PO once ss 13:01 Not Given (Patient Eloped): ns 0.9% 500 ml 500 ml IV at 1 bolus once; to be given as a jb4 bolus over 30 minutes Outcome: 13:01 Eloped from patient exam room, after seeing physician Time discovered patient gone: jb4 July 09, 2024 at 13:01 13:08 Discharge ordered by . [facility] 13:20 Patient left the ED. jb4 Signatures: Dispatcher [employer] EDMS Pascual Lundy MD MD cha Blanchard, Shelby, RN RN Flo Diaz RN RN jb4 Corrections: (The following items were deleted from the chart) 12:31 12:22 Method Of Arrival: EMS: [facility]
[2024-07-10 02:57] VITALS: BP 157/96; TEMP 98.4; O2SAT 100
== END 2024-07-09 13:20 | disposition home or self-care (01) ==
LOC: ER 12:14
DX: R07.89 Other chest pain (principal); F31.9 Bipolar disorder, unspecified
CPT/HCPCS: 71046; 99284; J7040

== ENCOUNTER 2024-07-12 15:31 | Emergency (ER) | payer SELFPAY ==
--- OUTSIDE RECORDS SUMMARY | 2024-07-12 15:40 | XMS REPORT | Continuity of Care Document ---
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 Henry Contreras 2023-11-23 19:45:00 2023-11-24 19:04:00 Outpatient Encounter 1 LAWRENCE MEJIAS [facility] 2.16.840.1. [id number] [facility] [place], operated [facility] 2023-11-21 19:00:00 2023-11-22 01:00:00 Emergency ER [id number] [facility] 2023-11-16 23:05:00 2023-11-21 17:28:00 Inpatient ER JUAN [facility]IGUEL [id number] [facility] 2023-11-15 16:24:00 2023-11-15 22:54:00 Emergency ER IMMARAJ, MELVINA CHRTJP CHRTJP [id number] [facility]O [facility] 2023-10-28 12:27:38 2023-10-28 12:27:38 Outpatient SFA SFA [id number] Henry Contreras 2023-10-25 15:44:11 2023-10-25 15:44:11 Outpatient SFA SFA 3 Henry Contreras 2023-10-25 00:00:00 2023-10-25 00:00:00 Outpatient Visit SFA [id number] Hnery Contreras 2023-10-04 15:25:52 2023-10-04 15:25:52 Outpatient SFA [facility] [id number] Henry Contreras 2023-10-01 00:00:00 2023-10-01 00:00:00 Telephone Indio Phelan [facility] 1.2.840.114 350.1.13.10 4.2.7.2.686 [id number] [facility] 2023-09-16 16:03:08 2023-09-16 16:03:08 Outpatient SFA [facility] [id number] Henry Contreras 2023-08-01 10:00:49 2023-08-01 10:00:49 Outpatient SFA [facility] [id number] Henry Contreras 2023-07-23 14:20:00 2023-07-23 16:57:02 Outpatient INDIO OLIVEROS [facility] [id number] [facility] 2023-07-23 14:20:00 2023-07-23 16:57:02 Office Visit Manoj Indio [facility] 1.2.840.114 350.1.13.10 4.2.7.2.686 [id number] [facility] 2023-07-23 00:00:00 2023-07-23 00:00:00 Orders Only Doctor Unassigned, [employer] [facility] 1.2.840.114 350.1.13.10 4.2.7.2.686 [id number] [facility] 2023-07-04 16:48:23 2023-07-04 16:48:23 Outpatient [facility] [id number] Henry Contreras 2023-06-18 10:35:36 2023-06-18 10:35:36 Outpatient [facility] [id number] Henry Contreras 2023-06-05 00:00:00 2023-06-05 00:00:00 Orders Only Doctor Unassigned, [employer] [facility] 1.2.840.114 350.1.13.10 4.2.7.2.686 [id number] [facility] 2023-06-04 16:00:39 2023-06-04 16:00:39 Outpatient [facility] [id number] Henry Quiles Ben 2023-05-24 15:38:52 2023-05-24 15:38:52 Outpatient [facility] [id number] Henry Contreras 2023-05-22 00:00:00 2023-05-22 00:00:00 Letter (Out) Neurology [facility] 1.2.840.114 350.1.13.10 4.2.7.2.686 [id number] [facility] 2023-05-20 00:00:00 2023-05-20 00:00:00 Orders Only Doctor Unassigned, [employer] [facility] 1.2.840.114 350.1.13.10 4.2.7.2.686 [id number] [facility] 2023-05-17 15:07:14 2023-05-17 15:07:14 Outpatient SFA [facility] [id number] Henry Contreras 2023-03-02 12:27:43 2023-03-02 12:27:43 Outpatient [facility] [id number] Henry Contreras 2023-01-09 17:11:26 2023-01-09 17:11:26 Outpatient SFA [facility] [id number] Henry Contreras 2022-11-04 14:04:00 2022-11-05 11:09:00 Emergency E JESS PAIGE [facility] [id number] [facility] 2022-09-24 12:33:00 2022-09-24 12:51:00 Emergency Heri Snow [facility] 1.2.840.114 350.1.13.10 4.2.7.2.686 [id number] [facility] 2022-09-22 00:00:00 2022-09-22 00:00:00 Nurse Triage Madhavi Mcginnis [facility] 1.2.840.114 350.1.13.10 4.2.7.2.686 [id number] [facility] 2022-09-18 10:09:00 2022-09-19 14:28:00 Inpatient EM Marly Mendenhall [facility] OBSE [id number] [facility] 2022-09-16 22:50:00 2022-09-17 01:40:00 Emergency EM Asim Jack [facility] FABI [id number] [facility] 2022-09-14 14:52:00 2022-09-15 14:00:00 Inpatient EM AndreiJuanGilbert [facility] TELE [id number] [facility] 2022-09-13 09:34:00 2022-09-13 13:00:00 Emergency EM Woodall Brad [facility] FABI [id number] [facility] 2022-09-10 23:39:00 2022-09-11 11:28:00 Emergency EM Russel Sewell [facility] MEXP [id number] [facility] 2022-09-10 18:57:00 2022-09-10 20:20:00 Emergency Lisa Morfin [facility] 1.2.840.114 350.1.13.10 4.2.7.2.686 [id number] [facility] 2022-09-10 18:57:00 2022-09-10 20:20:00 Emergency X SANDRITA KEY [facility] ERT [id number] [facility] 2022-09-09 20:45:00 2022-09-09 22:46:00 Emergency X SANDRITA KEY [facility] ERT [id number] [facility] 2022-09-09 20:45:00 2022-09-09 22:46:00 Emergency [facility] 1.2.840.114 350.1.13.10 4.2.7.2.686 [id number] [facility] 2022-09-06 18:09:00 2022-09-07 00:51:00 Emergency X TAYO BOYD [facility] ERT [id number] [facility] 2022-09-06 18:09:00 2022-09-07 00:51:00 Emergency Tayo Boyd [facility] 1.2.840.114 350.1.13.10 4.2.7.2.686 [id number] [facility] 2022-08-21 14:11:33 2022-08-21 14:11:33 Outpatient [facility] [id number] Henry F Ben 2022-07-17 15:03:48 2022-07-17 15:03:48 Outpatient [facility] [id number] Henry F Ben 2021-10-02 15:56:00 2021-10-02 19:00:00 Emergency X JAVED FRANK [facility] ERT [id number] [facility] 2021-10-02 15:56:00 2021-10-02 19:00:00 Emergency Javed Frank [facility] 1.2.840.114 350.1.13.10 4.2.7.2.686 [id number] [facility] 2021-05-05 13:22:00 2021-05-05 14:48:00 Emergency DEON ROCHE [facility] ERT [id number] [facility] 2021-05-05 13:22:00 2021-05-05 14:48:00 Emergency Deon Nunez [facility] 1.2.840.114 350.1.13.10 4.2.7.2.686 [id number] [facility] 2021-05-05 00:00:00 2021-05-05 00:00:00 Orders Only Doctor Unassigned, [employer] [facility] 1.2.840.114 350.1.13.10 4.2.7.2.686 [id number] [facility] 2019-12-15 17:11:56 2019-12-15 18:04:00 Emergency Kp Gilliland [facility] 1.2.840.114 350.1.13.10 4.2.7.2.686 [id number] 2019-12-15 17:11:56 2019-12-15 18:04:00 Emergency Kp Gilliland [facility] 1.2.840.114 350.1.13.10 4.2.7.2.686 [id number] [facility] 2019-12-15 17:11:56 2019-12-15 17:11:56 Emergency X Kp GILLILAND [facility] ERT [id number] [facility] 2019-10-25 18:31:31 2019-10-25 19:21:00 Emergency Kristin Miller [facility] 1.2.840.114 350.1.13.10 4.2.7.2.686 [id number] 2019-10-25 18:31:31 2019-10-25 19:21:00 Emergency Kristin Miller [facility] 1.2.840.114 350.1.13.10 4.2.7.2.686 [id number] [facility] 2019-10-25 18:31:31 2019-10-25 18:31:31 Emergency X KRISTIN MILLER [facility] ERT [id number] [facility] 2019-08-13 13:30:00 2019-08-13 14:36:00 Emergency Floridalma Evans [facility] 1.2.840.114 350.1.13.10 4.2.7.2.686 [id number] 2019-08-13 13:30:00 2019-08-13 14:36:00 Emergency Floridalma Evans [facility] 1.2.840.114 350.1.13.10 4.2.7.2.686 [id number] [facility] 2019-08-13 13:30:00 2019-08-13 14:36:00 Emergency X FLORIDALMA EVANS [facility] ERT [id number] [facility] 2019-07-22 13:42:11 2019-07-22 19:02:00 Emergency Unknown, Attending Lisa Morfin [facility] 1.2.840.114 350.1.13.10 4.2.7.2.686 [id number] 2019-07-22 13:42:11 2019-07-22 19:02:00 Emergency X LISA MORFIN [facility] ERT [id number] [facility] 2019-07-22 13:42:11 2019-07-22 19:02:00 Emergency Unknown, Attending Lisa Morfin [facility] 1.2.840.114 350.1.13.10 4.2.7.2.686 [id number] [facility] 2019-07-13 20:17:19 2019-07-13 21:48:00 Emergency X HENRY OWEN [facility] ERT [id number] [facility] 2019-07-13 20:17:19 2019-07-13 21:48:00 Emergency Henry Owen [facility] 1.2.840.114 350.1.13.10 4.2.7.2.686 [id number] [facility] 2019-07-10 14:26:03 2019-07-10 16:33:00 Emergency X DEBBIE PAYTON [facility] ERT [id number] [facility] 2019-07-10 14:26:03 2019-07-10 16:33:00 Emergency Debbie Payton [facility] 1.2.840.114 350.1.13.10 4.2.7.2.686 [id number] [facility] 2019-07-04 19:09:02 2019-07-04 22:51:00 Emergency X LISA MORFIN [facility] ERT [id number] [facility] 2019-06-30 10:33:08 2019-06-30 13:10:00 Emergency X DEON NUNEZ [facility] ERT [id number] [facility] 2019-05-25 11:58:19 2019-05-25 15:37:00 Emergency X DEON NUNEZ [facility] ERT [id number] [facility] 2019-04-09 22:29:37 2019-04-09 23:28:00 Emergency X FLORIDALMA EVANS [facility] ERT [id number] [facility] 2019-01-21 18:38:01 2019-01-21 19:59:00 Emergency Le Ramirez [facility] 1.2.840.114 350.1.13.10 4.2.7.2.686 [id number] 2019-01-21 18:38:01 2019-01-21 19:59:00 Emergency Le Ramirez [facility] 1.2.840.114 350.1.13.10 4.2.7.2.686 [id number] [facility] Results Test Description Test Time Test Comments Results Result Co mments Source Henry ContrerasT3 [id number] 04:20:00* Test Item Value Reference Range Interpretation Comme nts T3UP (test code = T3UP) 40.9 % 23.5-40.5 H FREE [id number] 04:20:00* Test Item Value Reference Range Interpretation Comme nts FT4 (test code = FT4) 1.05 ng/dL 0.78-2.19 Thyroxine (T4) free index in Serum or [id number] 04:19:00* Test Item Value Reference Range Interpretation Comme nts Thyroxine (T4) free index in Serum or Plasma (test code = 33893-7) 1.05 ng/dL 0.78-2.19 N [facility])Thyroid hormone uptake (T-uptake) in Serum or P 2023-11-24 04:18:00* Test Item Value Reference Range Interpretation Comme nts Thyroid hormone uptake (T-up take) in Serum or Plasma (test code = 09153-8) 40.9 % 23.5-40.5 H [facility])URINE DRUG [id number] 00:43:00* Test Item Value Reference Range Interpretation [...] abuse 5 panel - Urine by Screen lkxxbm9613-77-93 00:40:00 NegativeNegativeNegativeNegativeNegativeNegativeNegative[facility])DJVKRIQEWN3677-21-98 00:33:00* Test Item Value Reference Range Interpretation [...] /HPF 0-2 Urinalysis panel - Urine by Kbdh3437-68-29 00:33:00* Test Item Value Reference Range Interpretation Comme nts Ketones [Presence] in Urine (test code = 29507-3) 15 MG/DL NEG N pH of Urine (test code = 2756-5) 5.5 1 5.0-7.5 N Urobilinogen [Presence] in U rine (test code = 32411-3) 0.2 EU/DL 0.2-1.0 N Specific gravity of Urine (t est code = 2965-2) 1.013 1 1.0-1.025 N Leukocytes [Presence] in Uri ne sediment by Light microscopy (test code = 21903-7) 10 /HPF 0.0-5.0 H Erythrocytes [Presence] in U rine sediment by Light microscopy (test code = 15834-2) 2 /HPF 0.0-2.0 N [facility])VITAMIN [id number] 22:47:00* Test Item Value Reference Range Interpretation Comme nts B12 (test code = B12) 880 pg/mL 239-931 [id number] 22:47:00* Test Item Value Reference Range Interpretation Comme nts FOLATE (test code = FOLATE) 8.9 ng/mL 2.76-20.0 THYROID STIMULATION [id number] 22:47:00* Test Item Value Reference Range Interpretation Comme nts TSH (test code = TSH) 6.62 UIU/ML 0.465-4.68 H Cobalamin (Vitamin B12) [Mass/volume] in Keicr8684-30-50 22:47:00* Test Item Value Reference Range Interpretation Comme nts Cobalamin (Vitamin B12) [Mass/volume] in Serum or Plasma (test code = 2132-9) 880 pg/mL 239.0-931.0 [facility])Folate [Mass/volume] in Serum or Dnhbyp3138-21-73 22:47:00* Test Item Value Reference Range Interpretation Comme nts Folate [Mass/volume] in Seru m or Plasma (test code = 2284-8) 8.9 ng/mL 2.76-20.0 [facility])Thyrotropin in Serum or Yqlkjv3639-79-91 22:47:00* Test Item Value Reference Range Interpretation Comme nts Thyrotropin in Serum or Plas ma (test code = 18296-5) 6.62 UIU/ML 0.465-4.68 [facility] / 22:46:00* Test Item Value Reference Range Interpretation Comme nts HIV 1/2 AB (test code = SCRN HIV) NEGATIVE NEGATIVE This test is us ed for SCREENING purposes only. All reactive results are prelimenary and confirmation results will follow. HIV 1+2 Ab [Units/volume] in Kwvzb1933-28-55 22:45:00[facility]HEPATITIS C ANTIBODY [id number] 22:28:00* Test Item Value Reference Range Interpretation Comme nts SCRN HCV (test code = SCRN HCV) NEGATIVE NEGATIVE Hepatitis C Anti body test is for screening purposes only. All reactives will be confirmed by additional testing. Hepatitis C virus Ab [Presence] in Ozsyl7211-94-41 22:27:00Negative[facility]CG QUAL (KIT)2023-11-23 22:01:00* Test Item Value Reference Range Interpretation Comme nts HCGQUAL (test code = HCGQUAL) NEGATIVE NEGATIVE URINE: NEGATIVE = < 20 mIU/ML; POSITIVE= >/= 20 mIU/ML SERUM: NEGATIVE = < 10 mIU/ML; POSITIVE= >/= 10 mIU/ML SOURCE (test code = SOURCE) SERUM HCG INTERNAL POSITIVE CNTRL (test code = HCGIPC) PASS PASS HCG LOT # (test code = UHCGLOT) [id number] HCG EXPIRATION DATE (test code = UHCGEXP) Choriogonadotropin.beta subunit ( eeet7897-83-52 22:01:00* Test Item Value Reference Range Interpretation Comme nts Specimen source [Identifier] of Body fluid (test code = 77467-5) SERUM N Reagent Lot number (test cod e = [id number]) 1 N [facility])CT HEAD W/O [id number] 22:00:00 [facility] : 1975 Sex: F[address] [address]TGBJOJSDKT IMAGING REPORTPatient Name: ROBERT, CONCEPTIONDate of Service: 73-86-9075Axh: 48 Sex: F Order #: [id number] Room: ERSDOB: 1975 X-Ray Number: [id number] Record Number: [id number] Hospital Number: [id number] Physician: LAWRENCE MEJIASOrdering Physician: LAWRENCE MEJIASPROCEDURE: CTHEAD [...] 21:59:03CT Head and Orbit - bilateral WO lmymrgux6119-13-36 21:59:03 ORDER 1400: CT HEAD W/O CONT (LOINC: 32722-5)ORDER DATE: November 24, 2023 12:50:00 AM [facility]CT ABDOMEN/PELVIS [id number] 21:54:00 [facility] : 1975 Sex: F[address] [address]ALPBIZWSUX IMAGING REPORTPatient Name: ROBERT CONCEPTIONDate of Service: 25-52-1367Cfc: 48 Sex: F Order #: [id number] Room: ERSDOB: 1975 X-Ray Number: [id number] Record Number: [id number] Hospital Number: [id number] Physician: LAWRENCE MEJIASOrdering Physician: LAWRENCE MEJIASPROCEDURE: CT [...] YUNIOR MCKEON 2023-11-23 21:53:03 CT Abdomen and Zrrerl4639-20-78 21:53:03ORDER 1500: CT ABDOMEN/PELVIS WITHOUT (LOINC: 64737-4)ORDER DATE: November 24, 2023 12:50:00 AM [facility]2024-06-01 21:31:00* Test Item Value Reference [...] 70-99 Fasting glucos e normal <100 MG/DL- [employer] recommendation CALCIUM (test code = [...] of age is not validated by the thermit welding machine operator and may not represent the [...] should be used in the calculation". CREATINE [id number] 21:31:00* Test Item Value Reference Range Interpretation Comme nts CK (test code = CK) 115 U/L 30-135 BLOOD ALCOHOL (ETOH)2023-11-23 21:31:00* Test Item Value Reference Range Interpretation Comme nts ALCOHOL BLOOD LEVEL (test code = ALC BLD) <10 MG/DL 0-10 Results ar e to be used for medical purposes (treatment) only. Not intended for non medical purposes. Ethanol [Mass/volume] in Zahdn8118-60-15 21:30:00* Test Item Value Reference Range Interpretation Comme nts Ethanol [Mass/volume] in Blo od (test code = 5640-8) <10 0.0-10.0 N [facility])Creatine kinase isoenzymes [interpretation] in 2023-11-23 21:30:00* Test Item Value Reference Range Interpretation Comme nts Creatine kinase isoenzymes [interpretation] in Serum or Plasma Narrative (test code = 33678-6) 115 U/L 30.0-135.0 N [facility])Comprehensive metabolic 2000 panel - Serum [...] total [Moles/volume] in Blood (test code = 28963-3) 24 MMOL/L 22.0-30.0 N Urea nitrogen [Mass/volume] in Serum or Plasma (test code = 3094-0) 16 MG/DL 7.0-17.0 N Creatinine [Mass/volume] in Blood (test code = 52502-6) 0.6 MG/DL 0.7-1.2 L Glucose [Mass/volume] in Blood (test code = 2339-0) 80 MG/DL 70.0-99.0 N Calcium [Mass/volume] in Serum or Plasma (test code = 68380-5) 10.3 MG/DL 8.4-10.2 H Protein [Mass/volume] in Serum or Plasma (test code = 2885-2) 9.9 G/DL 6.3-8.2 H Albumin [Presence] in Serum or Plasma (test code = 19057-1) 4.7 G/DL 3.5-5.0 N Bilirubin direct and total panel [Mass/volume] - Serum or Plasma (test code = 35812-0) 0.8 MG/DL 0.2-1.3 N Aspartate aminotransferase [Enzymatic [...] 50 percent [- Reported] (test code = 06649-0) 113.0 mL/min/1.73m2 N Anion gap in Serum or Plasma (test code = 63567-7) 13 mmol/L 4.0-12.0 [id number]* Test Item Value Reference Range Interpretation [...] 1.2-7.2 CBC W Auto Differential panel - [id number] 21:15:00* Test Item Value Reference Range Interpretation Comme nts Leukocytes other [Identifier ] in Blood by Automated count (test code = 49304-1) 4.5 K/UL 3.5-10.9 N Erythrocytes [#/volume] in B lood (test code = 30987-1) 4.91 M/UL 4.0-5.0 N Hemoglobin A/Hemoglobin.tota l in Blood (test code = 4546-8) 13.8 G/DL 11.5-15.5 N Hematocrit [Volume Fraction] of Blood (test code = 07484-0) 42.4 % 34.0-46.0 N Erythrocyte mean corpuscular volume [Entitic volume] (test code = 52029-4) 86.4 FL 80.0-98.0 N Erythrocyte mean corpuscular hemoglobin [Entitic mass] (test code = 17601-0) 28.1 PG 28.0-32.0 N Erythrocyte mean corpuscular hemoglobin concentration [Mass/volume] (test code = 06569-8) 32.5 G/DL 32.5-36.5 N Erythrocyte distribution wid th [Ratio] (test code = 52266-5) 14.9 % 11.5-14.5 H Platelets panel - Blood by Automated count (test code = 79938-1) 124 K/UL 150.0-450.0 L Platelet mean volume [Entiti c volume] in Blood by Automated count (test code = 41096-0) 10.0 FL 7.4-10.4 N Neutrophils.segmented/100 leukocytes in Blood (test code = 12605-1) 53.3 % 40.0-75.0 N Lymphocytes Variant/100 leuk ocytes in Blood (test code = 22696-1) 33.9 % 24.0-44.0 N Lymphocytes+Monocytes/100 leukocytes in Blood (test code = 4662-3) 10.0 % 0.0-13.0 N Eosinophils [#/volume] in Bl ood (test code = 09382-1) 2.2 % 0.0-4.0 N Basophils [#/volume] in Bloo d (test code = 96125-7) 0.4 % 0.0-2.0 N Immature granulocytes/100 leukocytes in Blood (test code = 67750-3) 0.2 % 0.0-1.0 N Nucleated erythrocytes [#/vo lume] in Blood (test code = 30712-9) 0 /100 WBC N Neutrophils [#/volume] in Bl ood (test code = 86717-1) 2.4 K/UL 1.2-7.2 N [facility] ([place]PAP TEST, THINPREP, [id number] 16:02:24* Test Item Value Reference Range Interpretation Comme nts SOURCE: (test code = 8001) Cervical/Endoce rvical SLIDES: (test code = 8011) 1 LMP: (test code = 8021) SEE NOTE POST MENOPAUSAL SPECIMEN ADEQUACY: (test code = 33864) (NOTE) Satisfactory for evaluation. Endocervical cells/transformation zone component present. INTERPRETATION: (test code = 20794) NILM/NO EPITH. ABNORMALITY;SEE BELOW --- - NEGATIVE FOR INTRAEPITHELIAL LESION OR MALIGNANCY (NILM) ---- CORPORATE RECRUITER : (test code = 8101) Jami Smalls LOCATION: (test code = 24576) (NOTE) Specimens proces sed and interpreted at [facility], [address] [place] [address], , CLIA: [id number] CPT: (test code = 8140) (NOTE) 43627 UNLESS OTH ERWISE INDICATED, COMPUTER AIDED AND CORPORATE RECRUITER SCREENING PERFORMED. The Pap test is a screening test with an inherent, but low probability of error. Your patient should be reminded to consult you immediately if she experiences any suspicious signs or symptoms, regardless of her Pap test result. An alternate report format containing images or consolidated prior Pap history is available as applicable. HPV HIGH RISK WITH GENOTYPE, [id number] 15:53:52* Test Item Value Reference Range Interpretation Comme nts HPV HIGH RISK INTERP (test code = 03056) NEGATIVE NEGATIVE HPV 16 (test code = 39490) NEGATIVE HPV 18 (test code = 67532) NEGATIVE HPV, HR, OTHER GENOTYPES (test code = 75750) NEGATIVE Testing methodol ogy is real-time PCR utilizing hydrolysis probes with the [employer] system. The test individually detects genotypes 16 and 18, as well as the other 12 high risk types (31,33,35,39,45,51,52,56 ,58,59,66,68). The expected result is negative. A negative result does not rule out the presence of HPV not included in the genotype set, a low level of infection or specimen sampling error. UNLESS OTHERWISE INDICATED, ALL TESTING PERFORMED AT [facility] [address] [place] [address] FOREST WORKER: JATIN FELIPE M.D. CLIA NUMBER [id number] [place]. [id number] HPV HIGH RISK WITH GENOTYPE, [id number] 00:00:00* Test Item Value Reference Range Interpretation Comme nts HPV HIGH RISK INTERP (test c ode = 30858) NEGATIVE HPV 16 (test code = 41524) NEGATIVE HPV 18 (test code = 02167) NEGATIVE HPV, HR, OTHER GENOTYPES (te st code = 59263) NEGATIVE PDFE (test code = PDFReport) PDF Henry ContrerasCHAPIN TEST, THINPREP, [id number] 00:00:00* Test Item Value Reference Range Interpretation Comme nts SOURCE: (test code = 8001) Cervical/Endocervical SLIDES: (test code = 8011) 1 LMP: (test code = 8021) SEE NOTE SPECIMEN ADEQUACY: (test code = 26204) (NOTE) INTERPRETATION: (test code = 26765) NILM/NO EPITH. ABNORMALITY;SEE BELOW CORPORATE RECRUITER: (test code = 8101) Jami Smalls LOCATION: (test code = 94080) (NOTE) CPT: (test code = 8140) (NOTE) Henry F AustinHPV HIGH RISK WITH GENOTYPE, [id number] 00:00:00* Test Item Value Reference Range Interpretation Comme nts HPV HIGH RISK INTERP (test c ode = 85769) NEGATIVE HPV 16 (test code = 94060) NEGATIVE HPV 18 (test code = 14995) NEGATIVE HPV, HR, OTHER GENOTYPES (te st code = 24814) NEGATIVE PDFE (test code = PDFReport) PDF Henry ContrerasPAP TEST, THINPREP, [id number] 00:00:00* Test Item Value Reference Range Interpretation Comme nts SOURCE: (test code = 8001) Cervical/Endocervical SLIDES: (test code = 8011) 1 LMP: (test code = 8021) SEE NOTE SPECIMEN ADEQUACY: (test code = 02114) (NOTE) INTERPRETATION: (test code = 21844) NILM/NO EPITH. ABNORMALITY;SEE BELOW CORPORATE RECRUITER: (test code = 8101) Jami Smalls LOCATION: (test code = 41854) (NOTE) CPT: (test code = 8140) (NOTE) Henry Quiles AustinHPV HIGH RISK WITH GENOTYPE, [id number] 00:00:00* Test Item Value Reference Range Interpretation Comme nts HPV HIGH RISK INTERP (test c ode = 90123) NEGATIVE HPV 16 (test code = 42130) NEGATIVE HPV 18 (test code = 57420) NEGATIVE HPV, HR, OTHER GENOTYPES (te st code = 55067) NEGATIVE PDFE (test code = PDFReport) PDF Henry ContrerasPAP TEST, THINPREP, [id number] 00:00:00* Test Item Value Reference Range Interpretation Comme nts SOURCE: (test code = 8001) Cervical/Endocervical SLIDES: (test code = 8011) 1 LMP: (test code = 8021) SEE NOTE SPECIMEN ADEQUACY: (test code = 00874) (NOTE) INTERPRETATION: (test code = 20355) NILM/NO EPITH. ABNORMALITY;SEE BELOW CORPORATE RECRUITER: (test code = 8101) Jami Smalls LOCATION: (test code = 78854) (NOTE) CPT: (test code = 8140) (NOTE) Henry ContrerasPAP TEST, THINPREP, IMAGED [ADDED]2023-10-10 00:00:00* Test Item Value Reference Range Interpretation Comme nts SOURCE: (test code = 8001) Unspecified SLIDES: (test code = 8011) 2 LMP: (test code = 8021) NOT GIVEN SPECIMEN ADEQUACY: (test code = 32398) (NOTE) INTERPRETATION: (test code = 41790) UNSATISFACTORY; SEE BELOW OTHER COMMENTS: (test code = 8081) (NOTE) CORPORATE RECRUITER: (test code = 8101) Jose Bustillos QC TECHNOLOGIST: (test code = 8111) RAUL Wilde(ASCP),IAC LOCATION: (test code = 08674) (NOTE) CPT: (test code = 8140) (NOTE) Henry F AustinHPV HIGH RISK IF ASC/LSIL, THINPREP [ADDED]2023-10-10 00:00:00* Test Item Value Reference Range Interpretation Comme nts HPV HIGH RISK IF ASC/LSIL, THINPREP (test code = 09656) CRITERIA NOT MET Henry F AustinPAP TEST, THINPREP, IMAGED [ADDED]2023-10-10 00:00:00* Test Item Value Reference Range Interpretation Comme nts SOURCE: (test code = 8001) Unspecified SLIDES: (test code = 8011) 2 LMP: (test code = 8021) NOT GIVEN SPECIMEN ADEQUACY: (test code = 23939) (NOTE) INTERPRETATION: (test code = 21903) UNSATISFACTORY; SEE BELOW OTHER COMMENTS: (test code = 8081) (NOTE) CORPORATE RECRUITER: (test code = 8101) Jose Bustillos QC TECHNOLOGIST: (test code = 8111) RAUL Wilde(ASCP),IAC LOCATION: (test code = 85692) (NOTE) CPT: (test code = 8140) (NOTE) Henry F AustinHPV HIGH RISK IF ASC/LSIL, THINPREP [ADDED]2023-10-10 00:00:00* Test Item Value Reference Range Interpretation Comme nts HPV HIGH RISK IF ASC/LSIL, THINPREP (test code = 05722) CRITERIA NOT MET Henry F AustinPAP TEST, THINPREP, IMAGED [ADDED]2023-10-10 00:00:00* Test Item Value Reference Range Interpretation Comme nts SOURCE: (test code = 8001) Unspecified SLIDES: (test code = 8011) 2 LMP: (test code = 8021) NOT GIVEN SPECIMEN ADEQUACY: (test code = 67045) (NOTE) INTERPRETATION: (test code = 27570) UNSATISFACTORY; SEE BELOW OTHER COMMENTS: (test code = 8081) (NOTE) CORPORATE RECRUITER: (test code = 8101) Jose Bustillos QC TECHNOLOGIST: (test code = 8111) Jason Whitman,SCT(ASCP),IAC LOCATION: (test code = 85166) (NOTE) CPT: (test code = 8140) (NOTE) Henry Quiles AustinHPV HIGH RISK IF ASC/LSIL, THINPREP [ADDED]2023-10-10 00:00:00* Test Item Value Reference Range Interpretation Comme nts HPV HIGH RISK IF ASC/LSIL, THINPREP (test code = 40833) CRITERIA NOT MET Henry Quiles AustinGONORRHEA, NAAT, THINPREP [ADDED]2023-10-08 00:00:00* Test Item Value Reference Range Interpretation Comme nts GONORRHEA, NAAT, THINPREP (t est code = 68378) NEGATIVE Henry Quiles AustinCHLAMYDIA, NAAT, THINPREP [ADDED]2023-10-08 00:00:00* Test Item Value Reference Range Interpretation Comme nts CHLAMYDIA, NAAT, THINPREP (t est code = 78928) NEGATIVE PDFE (test code = PDFReport) PDF Henry Quiles AustinGONORRHEA, NAAT, THINPREP [ADDED]2023-10-08 00:00:00* Test Item Value Reference Range Interpretation Comme nts GONORRHEA, NAAT, THINPREP (t est code = 81993) NEGATIVE Henry Quiles AustinCHLAMYDIA, NAAT, THINPREP [ADDED]2023-10-08 00:00:00* Test Item Value Reference Range Interpretation Comme nts CHLAMYDIA, NAAT, THINPREP (t est code = 77904) NEGATIVE PDFE (test code = PDFReport) PDF Henry Quiles AustinGONORRHEA, NAAT, THINPREP [ADDED]2023-10-08 00:00:00* Test Item Value Reference Range Interpretation Comme nts GONORRHEA, NAAT, THINPREP (t est code = 58571) NEGATIVE Henry SelfAMYDIA, NAAT, THINPREP [ADDED]2023-10-08 00:00:00* Test Item Value Reference Range Interpretation Comme shaina CHLAMYDIA, NAAT, THINPREP (t est code = 43413) NEGATIVE PDFE (test code = PDFReport) PDF Henry Griffin THIRD [id number] 08:14:44* Test Item Value Reference Range Interpretation Comme nts TSH, THIRD GENERATION (test code = 2821) 5.200 UIU/ML 0.400-4.100 H UNLESS OTHERWISE INDICATED, ALL TESTING PERFORMED AT [facility] [address] [place] [address] FOREST WORKER: JATIN FELIPE M.D. CLIA NUMBER [id number] [place] [place]. [id number] 00:00:00* Test Item Value Reference Range Interpretation Comme shaina TSH, THIRD GENERATION (test code = 2821) 5.200 UIU/ML Henry [id number] 00:00:00* Test Item Value Reference Range Interpretation Comme nts TSH, THIRD GENERATION (test code = 2821) 5.200 UIU/ML Henry [id number] 00:00:00* Test Item Value Reference Range Interpretation Comme nts TSH, THIRD GENERATION (test code = 2821) 5.200 UIU/ML Henry Griffin THIRD [id number] 23:53:27* Test Item Value Reference Range Interpretation Comme nts TSH, THIRD GENERATION (test code = 2821) 11.100 UIU/ML 0.400-4.100 H COMPREHENSIVE METABOLIC [id number] 23:46:03* Test Item Value Reference Range Interpretation Comme nts GLUCOSE (test code = 2217) 97 MG/DL 70-99 BUN (test code = 2208) 7 MG/DL 6-20 CREATININE (test code = 2214) 0.61 MG/DL 0.60-1.30 eGFR (2020 CKD-EPI) (test code = 75672) 110 ML/MIN/1.73 >60 CALC BUN/CREAT (test code = 2235) 11 RATIO 6-28 SODIUM (test code = 2231) 132 MEQ/L 133-146 L POTASSIUM (test code = 2228) 4.1 MEQ/L 3.5-5.4 CHLORIDE (test code = 5) 95 MEQ/L 95-107 CARBON DIOXIDE (test code [...] 13 U/L 5-40 CBC W/AUTO DIFF WITH [id number] 08:48:44* Test Item Value Reference Range Interpretation [...] 0.00-0.10 ABS NUCLEATED RBCS (test code = 36000) 0.00 K/UL 0.00-0.11 UNLESS OTHER MONTOYA INDICATED, ALL TESTING PERFORMED AT [facility] [address] [place] [address] FOREST WORKER: JATIN FELIPE M.D. CLIA NUMBER [id number] [place] [place]. [id number] 00:00:00* Test Item Value Reference Range Interpretation Comme nts TSH, THIRD GENERATION (test code = 2821) 11.100 UIU/ML Henry Quiles [facility] W/AUTO [id number] 00:00:00* Test Item Value Reference Range Interpretation [...] ABS NUCLEATED RBCS (test cod e = 04435) 0.00 K/UL Henry Quiles BenCOMPREHENSIVE METABOLIC [id number] 00:00:00* Test Item Value Reference Range Interpretation Comme nts GLUCOSE (test code = 2217) 97 MG/DL BUN (test code = 2208) 7 MG/DL CREATININE (test code = 2214) 0.61 MG/DL eGFR (2020 CKD-EPI) (test code = 78362) 110 ML/MIN/1.73 CALC BUN/CREAT (test code = [...] code = 2219) 13 U/L Henry Quiles [id number] 00:00:00* Test Item Value Reference Range Interpretation Comme nts TSH, THIRD GENERATION (test code = 2821) 11.100 UIU/ML Henry Quiles BenCBC W/AUTO [id number] 00:00:00* Test Item Value Reference Range Interpretation [...] ABS NUCLEATED RBCS (test cod e = 09107) 0.00 K/UL Henry ContrerasCOMPREHENSIVE METABOLIC [id number] 00:00:00* Test Item Value Reference Range Interpretation Comme nts GLUCOSE (test code = 2217) 97 MG/DL BUN (test code = 2208) 7 MG/DL CREATININE (test code = 2214) 0.61 MG/DL eGFR (2020 CKD-EPI) (test code = 77884) 110 ML/MIN/1.73 CALC BUN/CREAT (test code = [...] (test code = 2219) 13 U/L Henry [id number] 00:00:00* Test Item Value Reference Range Interpretation Comme nts TSH, THIRD GENERATION (test code = 2821) 11.100 UIU/ML Henry ContrerasCBC W/AUTO [id number] 00:00:00* Test Item Value Reference Range Interpretation [...] ABS NUCLEATED RBCS (test cod e = 52755) 0.00 K/UL Henry ContrerasCOMPREHENSIVE METABOLIC [id number] 00:00:00* Test Item Value Reference Range Interpretation Comme nts GLUCOSE (test code = 2217) 97 MG/DL BUN (test code = 2208) 7 MG/DL CREATININE (test code = 2214) 0.61 MG/DL eGFR (2020 CKD-EPI) (test code = 75904) 110 ML/MIN/1.73 CALC BUN/CREAT (test code = [...] (test code = 2219) 13 U/L Henry C[id number] 01:13:06* Test Item Value Reference Range Interpretation Comme nts TRANSFERRIN (test code = 4936) 315 MG/DL 200-360 UNLESS OTHERWISE INDICATED, ALL TESTING PERFORMED AT [facility] [address] [place] [address] FOREST WORKER: JATIN FELIPE M.D. CLIA NUMBER [id number] [place] [place]. [id number] LIPID [id number] 01:12:48* Test Item Value Reference Range Interpretation [...] SPECIMENS. FOR MOREINFORMATION, SEE CLIENT ANNOUNCEMENT AT [email or web address] RISK RATIO LDL/HDL (test code = 2237) 1.34 RATIO <3.22 COMPREHENSIVE METABOLIC [id number] 01:12:48* Test Item Value Reference Range Interpretation Comme nts GLUCOSE (test code = 2216) 92 MG/DL 70-99 BUN (test code = 2207) 15 MG/DL 6-20 CREATININE (test code = 2213) 0.65 MG/DL 0.60-1.30 eGFR (2020 CKD-EPI) (test code = 58692) 108 ML/MIN/1.73 >60 CALC BUN/CREAT (test code = 2235) 23 RATIO 6-28 SODIUM (test code = 2230) 135 MEQ/L 133-146 POTASSIUM (test code = 8) 4.2 MEQ/L 3.5-5.4 CHLORIDE (test code = 5) 99 MEQ/L 95-107 CARBON DIOXIDE (test code = 2205) 24 MEQ/L 19-31 CALCIUM (test code = 2208) 9.8 MG/DL 8.5-10.5 PROTEIN, TOTAL (test code = 2228) 7.8 G/DL 6.1-8.3 ALBUMIN (test code = 2200) 3.9 G/DL 3.5-5.2 CALC GLOBULIN (test code = 2240) 3.9 G/DL 1.9-3.7 H CALC A/G RATIO (test code = 223) 1.0 RATIO 1.0-2.6 BILIRUBIN, TOTAL (test code = 2206) <0.2 MG/DL See_Comment [Automated me ssage] The system which generated this result transmitted reference range: <=1.2. The reference range was not used to interpret this result as normal/abnormal. ALKALINE PHOSPHATASE (test code = 2203) 73 U/L 40-125 AST (test code = 8) 15 U/L 9-40 ALT (test code = 2219) 7 U/L 5-40 IRON BINDING CAPACITY AND IRON AND % [id number] 01:12:48* Test Item Value Reference Range Interpretation Comme nts IRON, SERUM (test code = 2221) 51 UG/DL 37-145 UNSATURATED IBC (test code = ) 356 UG/DL 112-347 H CALC TOTAL IBC (test code = 2076) 407 UG/DL 250-450 CALC % IRON SAT (test code = 2078) 13 % 20-50 L [id number] 00:59:24* Test Item Value Reference Range Interpretation Comme nts FERRITIN (test code = 2074) 20 NG/ML 13-200 LIPID [id number] 00:00:00* Test Item Value Reference Range Interpretation Comme nts CHOLESTEROL (test code = 0) 191 MG/DL TRIGLYCERIDES (test code = 2) 89 MG/DL HDL CHOLESTEROL (test code = 0) 74 MG/DL CALC LDL CHOL (test code = 7) 99 MG/DL RISK RATIO LDL/HDL (test cod e = 2238) 1.34 RATIO Henry ContrerasCOMPREHENSIVE METABOLIC [id number] 00:00:00* Test Item Value Reference Range Interpretation Comme nts GLUCOSE (test code = 7) 92 MG/DL BUN (test code = 2208) 15 MG/DL CREATININE (test code = 2214) 0.65 MG/DL eGFR (2020 CKD-EPI) (test code = 83092) 108 ML/MIN/1.73 CALC BUN/CREAT (test code = [...] code = 2219) 7 U/L Henry F AustinIRON BINDING CAPACITY AND IRON AND % [id number] 00:00:00* Test Item Value Reference Range Interpretation Comme shaina IRON, SERUM (test code = 2221) 51 UG/DL UNSATURATED IBC (test code = 16053) 356 UG/DL CALC TOTAL IBC (test code = 7) 407 UG/DL CALC % IRON SAT (test code = 2078) 13 % Henry [id number] 00:00:00* Test Item Value Reference Range Interpretation Comme nts FERRITIN (test code = 2074) 20 NG/ML Henry [id number] 00:00:00* Test Item Value Reference Range Interpretation Comme nts TRANSFERRIN (test code = 4936) 315 MG/DL Henry ContrerasLIPID [id number] 00:00:00* Test Item Value Reference Range Interpretation Comme nts CHOLESTEROL (test code = 2210) 191 MG/DL TRIGLYCERIDES (test code = 2) 89 MG/DL HDL CHOLESTEROL (test code = 0) 74 MG/DL CALC LDL CHOL (test code = 7) 99 MG/DL RISK RATIO LDL/HDL (test cod e = 2238) 1.34 RATIO Henry ContrerasCOMPREHENSIVE METABOLIC [id number] 00:00:00* Test Item Value Reference Range Interpretation Comme nts GLUCOSE (test code = 2217) 92 MG/DL BUN (test code = 2208) 15 MG/DL CREATININE (test code = 2214) 0.65 MG/DL eGFR (2020 CKD-EPI) (test code = 76806) 108 ML/MIN/1.73 CALC BUN/CREAT (test code = [...] <0.2 MG/DL ALKALINE PHOSPHATASE (test code = 4) 73 U/L AST (test code = 2218) 15 U/L ALT (test code = 2219) 7 U/L Henry ContrerasIRON BINDING CAPACITY AND IRON AND % [id number] 00:00:00* Test Item Value Reference Range Interpretation Comme nts IRON, SERUM (test code = 2221) 51 UG/DL UNSATURATED IBC (test code = ) 356 UG/DL CALC TOTAL IBC (test code = 2076) 407 UG/DL CALC % IRON SAT (test code = 2078) 13 % Henry [id number] 00:00:00* Test Item Value Reference Range Interpretation Comme nts FERRITIN (test code = 2074) 20 NG/ML Henry C[id number] 00:00:00* Test Item Value Reference Range Interpretation Comme nts TRANSFERRIN (test code = 4936) 315 MG/DL Henry ContrerasLIPID [id number] 00:00:00* Test Item Value Reference Range Interpretation Comme nts CHOLESTEROL (test code = 2210) 191 MG/DL TRIGLYCERIDES (test code = 2) 89 MG/DL HDL CHOLESTEROL (test code = 0) 74 MG/DL CALC LDL CHOL (test code = 7) 99 MG/DL RISK RATIO LDL/HDL (test cod e = 2238) 1.34 RATIO Henry ContrerasCOMPREHENSIVE METABOLIC [id number] 00:00:00* Test Item Value Reference Range Interpretation Comme nts GLUCOSE (test code = 2217) 92 MG/DL BUN (test code = 2208) 15 MG/DL CREATININE (test code = 2214) 0.65 MG/DL eGFR (2020 CKD-EPI) (test code = 84102) 108 ML/MIN/1.73 CALC BUN/CREAT (test code = 2235) 23 RATIO SODIUM (test code = 2231) 135 MEQ/L POTASSIUM (test code = 2228) 4.2 MEQ/L CHLORIDE (test code = 2215) 99 MEQ/L CARBON DIOXIDE (test code = 2206) 24 MEQ/L CALCIUM (test code = 2209) 9.8 MG/DL PROTEIN, TOTAL (test code = 2229) 7.8 G/DL ALBUMIN (test code = 1) [...] ContrerasIRON BINDING CAPACITY AND IRON AND % [id number] 00:00:00* Test Item Value Reference Range Interpretation Comme nts IRON, SERUM (test code = 222) 51 UG/DL UNSATURATED IBC (test code = 87843) 356 UG/DL CALC TOTAL IBC (test code = 2076) 407 UG/DL CALC % IRON SAT (test code = 2078) 13 % Henry [id number] 00:00:00* Test Item Value Reference Range Interpretation Comme nts FERRITIN (test code = 2075) 20 NG/ML Henry Quiles [id number] 00:00:00* Test Item Value Reference Range Interpretation Comme nts TRANSFERRIN (test code = 4936) 315 MG/DL Henry ContrerasHEMOGLOBIN [id number] 03:08:40* Test Item Value Reference Range Interpretation Comme shaina HEMOGLOBIN A1c (test code = 79603) 5.5 % 4.2-5.6 CBC W/AUTO DIFF WITH [id number] 02:29:36* Test Item Value Reference Range Interpretation [...] 0.00-0.10 ABS NUCLEATED RBCS (test code = 49918) 0.00 K/UL 0.00-0.11 CBC W/AUTO [id number] 00:00:00* Test Item Value Reference Range Interpretation [...] ABS NUCLEATED RBCS (test cod e = 35855) 0.00 K/UL Henry ContrerasHEMOGLOBIN [id number] 00:00:00* Test Item Value Reference Range Interpretation Comme nts HEMOGLOBIN A1c (test code = 44601) 5.5 % Henry ContrerasCBC W/AUTO [id number] 00:00:00* Test Item Value Reference Range Interpretation [...] ABS NUCLEATED RBCS (test cod e = 50443) 0.00 K/UL Henry Quiles AustinHEMOGLOBIN [id number] 00:00:00* Test Item Value Reference Range Interpretation Comme nts HEMOGLOBIN A1c (test code = 08020) 5.5 % Henry Quiles AustinCBC W/AUTO [id number] 00:00:00* Test Item Value Reference Range Interpretation [...] ABS NUCLEATED RBCS (test cod e = 49285) 0.00 K/UL Henry Quiles AustinHEMOGLOBIN [id number] 00:00:00* Test Item Value Reference Range Interpretation Comme nts HEMOGLOBIN A1c (test code = 64411) 5.5 % Henry Quiles AustinDRUGS OF [id number] 05:03:00* Test Item Value Reference Range Interpretation [...] 200 ng/mL Opiates 300 ng/mL URINALYSIS WITH [id number] 04:56:00* Test Item Value Reference Range Interpretation [...] (test code = USPERM) /HPF NONE URINE [id number] 04:53:00* Test Item Value Reference Range Interpretation [...] the FDA and the [employer] ([employer]) are more stringent than those required for this test. Therefore, the result should be interpreted with caution and close attention to other clinical and epidemiological data [id number] 16:00:00* Test Item Value Reference Range Interpretation Comme nts SALICYLATE (test code = 94B) <3.0 mg/dL 15.0-30.0 L LIVER [id number] 15:49:00* Test Item Value Reference Range Interpretation [...] code = 30A) 16 IU/L See_Comment [Automated Analizaa ge] The system which generated this result transmitted reference range: <=33. The reference range was not used to interpret this result as normal/abnormal. ALT (test code = 31A) <7 IU/L 10-49 L [id number] 15:48:00* Test Item Value Reference Range Interpretation Comme nts ACETAMINPH (test code = 94M) <0.2 mg/dL 1.2-2.5 L ALCOHOL BLOOD (ETOH)2022-11-04 15:48:00* Test Item Value Reference Range Interpretation Comme nts ETOH (test code = HALC) ETHANOL The result is to be used only for medical purposes ALCOHOL (test code = 56A) <10 mg/dL See_Comment [Automated Analizaa ge] The system which generated this result transmitted reference range: <=10. The reference range was not used to interpret this result as normal/abnormal. 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 Old healed fractures of the distal tibia and fibular noted.Soft tissues: Unremarkable.IMPRESSION: No acute findings.Electronically signed by: Nikko Santiago MD 11/04/2022 3:10 PM CDT [id number] BEDSIDE [id number] 11:51:00* Test Item Value Reference Range Interpretation Comme nts GLUCOSE BEDSIDE TESTING (karen t code = GLUBED) 79 MG/DL 70-119 N GLUCOSE BEDSIDE [id number] 06:23:00* Test Item Value Reference Range Interpretation Comme nts GLUCOSE BEDSIDE TESTING (karen t code = GLUBED) 80 MG/DL 70-119 N BASIC METABOLIC [id number] 05:12:00* Test Item Value Reference Range Interpretation [...] <2.0 indicates None DetectedPerformed At: [facility] [address] [place], [place] [id number] Michael Reeves MD Ph:[phone] GLUCOSE BEDSIDE [id number] 19:51:00* Test Item Value Reference Range Interpretation Comme nts GLUCOSE BEDSIDE TESTING (karen t code = GLUBED) 129 MG/DL 70-119 H OSMOLALITY [id number] 17:56:00* Test Item Value Reference Range Interpretation Comme nts OSMOLALITY SERUM (test code = OSMO) 269 mOsm/kg 275-300 L THYROID STIMULATING [id number] 17:56:00* Test Item Value Reference Range Interpretation Comme nts THYROID STIMULATING HORMONE (test code = TSH) 4.190 mc IU/ML 0.340-4.820 N GLUCOSE BEDSIDE [id number] 15:49:00* Test Item Value Reference Range Interpretation [...] code = VALP) 37.5 mcG/ML 50.0-100.0 L [id number] 14:26:00* Test Item Value Reference Range Interpretation Comme nts AMMONIA (test code = AMM) 29.0 mcMOL/L 11.0-32.0 N GLUCOSE BEDSIDE [id number] 11:51:00* Test Item Value Reference Range Interpretation Comme nts GLUCOSE BEDSIDE TESTING (karen t code = GLUBED) 88 MG/DL 70-119 N GLYCOSYLATED HEMOGLOBIN (HA1C)2022-09-18 06:53:00* Test Item Value Reference Range Interpretation Comme nts GLYCOSYLATED HEMOGLOBIN (HA1 C) (test code = GLYHGB) 5.2 % IS-A1C 4.5-5.6 N ESTIMATED AVERAGE [id number] 06:53:00* Test Item Value Reference Range Interpretation [...] to interpret this result as normal/abnormal. UR [id number] 21:28:00* Test Item Value Reference Range Interpretation Comme nts UR SODIUM RANDOM (test code = JESUSITA) 93 mmol/L 40-200 N UR POTASSIUM RANDOM (test code = KU) 54.8 mmol/L 25-125 N NO ESTABLISHED NORMAL RANGES FOR RANDOM SPECIMENS. UR CHLORIDE RANDOM (test code = CLU) 164 mmol/L 110-150 H UR OSMOLALITY [id number] 21:28:00* Test Item Value Reference Range Interpretation Comme nts UR OSMOLALITY RANDOM (test c ode = OSMOU) 475 mOsm/kg 100-1400 N CBC W/O [id number] 20:05:00* Test Item Value Reference Range Interpretation [...] = MPV) 9.5 fL 6.8-11.2 N LACTIC [id number] 19:35:00* Test Item Value Reference Range Interpretation Comme nts LACTIC ACID (test code = LACT) 1.0 mmol/L 0.4-2.0 N HCG SERUM [id number] 19:31:00* Test Item Value Reference Range Interpretation Comme nts HCG SERUM QUAL (test code = HCGQL) Negative SCREEN NEG - CT HEAD/BRAIN W/O [id number] 18:59:00 [facility] : 1975 Sex: F Patient Name: BHUMIKA JONES Unit No: [id number] EXAMS: CPT CODE: [id number] CT HEAD/BRAIN W/O CONT 60836 Location: H3 CT head, conducted on 09/17/22 [...] 09/17/2022 at 1859 Reported and signed by: Eleno Reed CC: Valentina Samayoa MD Dictated Date/Time: 09/17/2022 (1858) Technologist: MALA Jenkins)(CT) CTDI: DLP: Trnscrpt: 09/17/2022 (1858) NadiyaDAS6 DENIZ Lugo NAME: CHIQUI PEC[address] PHYS: Valentina [place] [address] : 1975 AGE: 47 SEX: F LOC: JOSHUA 20 PHONE #: [phone] EXAM DATE: 09/17/2022 STATUS: ADM IN FAX #: [phone] RAD #: D/C DT PAGE 1 Signed Report Patient Name: SILAS JONESPCION Unit No: [id number] EXAMS: CPT CODE: [id number] CT HEAD/BRAIN W/O CONT 90629 (Continued) Orig Print D/T: S: 09/17/2022 (1901) DENIZ Lugo NAME: ROBERT[address] PHYS: Valentina [place]son [place] [address] : 1975 AGE: 47 SEX: F LOC: JOSHUA 20 PHONE #: [phone] EXAM DATE: 09/17/2022 STATUS: ADM IN FAX #: [phone] RAD #: D/C DT PAGE 2 Signed ReportURINALYSIS [id number] 16:28:00* Test Item Value Reference Range Interpretation [...] >0 /UL NONE-SQepi DRUGS OF ABUSE SCREEN [id number] 16:28:00* Test Item Value Reference Range Interpretation [...] interpret this result as normal/abnormal. TROP-I HIGH [id number] 16:26:00* Test Item Value Reference Range Interpretation [...] and URLs may vary bymethod. BASIC METABOLIC [id number] 16:25:00* Test Item Value Reference Range Interpretation [...] interpret this result as normal/abnormal. HEPATIC FUNCTION [id number] 16:25:00* Test Item Value Reference Range Interpretation [...] ode = CK) 92 Unit/L 26-192 N [id number] 16:25:00* Test Item Value Reference Range Interpretation Comme nts LIPASE (test code = LIP) 57 Unit/L 114-286 L - CT HEAD/BRAIN W/O [id number] 00:32:00 [facility] : 1975 Sex: F Patient Name: BHUMIKA JONES Unit No: [id number] EXAMS: CPT CODE: [id number] CT HEAD/BRAIN W/O CONT 90638 EXAM: - CT HEAD/BRAIN W/O CONT LOCATION: [...] Jess Iglesias MD CC: Dictated Date/Time: 09/17/2022 (0032) Technologist: Terry August CTDI: DLP: Trnscrpt: 09/17/2022(0032) NadiyaMKW1 DENIZ Yale NAME: ROBERT[address] PHYS: YASMIN - Asim Jack [place] [address] : 1975 AGE: 47 SEX: F LOC: GregorioERS PHONE #: [phone] EXAM DATE: 09/16/2022 STATUS: REG ER FAX #: [phone] RAD #: D/C DT PAGE 1 Signed Report Patient Name: BHUMIKA JONES Unit No: [id number] EXAMS: CPT CODE: [id number] CTHEAD/BRAIN W/O CONT 83073 (Continued) Orig Print D/T: S: 09/17/2022 (34) DENIZ Britoroe NAME: JONES[address] PHYS: GLORYLUCHO.02 - Asim [place] [address] : 1975 AGE: 47 SEX: F LOC: GregorioERS PHONE #: [phone] EXAM DATE: 09/16/2022 STATUS: REG ER FAX #: [phone] RAD #: D/C DT PAGE 2 Signed Report TROP-I HIGH [id number] 00:13:00* Test Item Value Reference Range Interpretation [...] and URLs may vary bymethod. COMPREHENSIVE METABOLIC [id number] 00:11:00* Test Item Value Reference Range Interpretation [...] interpret this result as normal/abnormal. CBC W/AUTO [id number] 23:59:00* Test Item Value Reference Range Interpretation [...] K/mm3 0.0-0.05 N - XR CHEST 1 [id number] 23:34:00 [facility] : 1975 [place]: [place]: St: PRE -- Patient Name: BHUMIKA JONES Unit No: [id number] EXAMS: CPT CODE: [id number] XR CHEST 1 V 65886 EXAMINATION: - XR CHEST 1 V CLINICAL [...] 09/16/2022 (233)Technologist: Muna Monet Transcribed Date/Time: 09/16/2022 (5604) By: NadiyaJH12 Orig Print D/T: S: 09/16/2022 (3598) DENIZ Lugo NAME: BHUMIKA JONES [address] [place] [address] Bl PHYS: PATCA.02 - Asim Jack MD, [place] [address] : 1975 AGE: 47 SEX: F LOC: B.ERS PHONE #: [phone] EXAM DATE: 09/16/2022 STATUS: PRE ER FAX #: [phone] RAD NO: DC Dt: PAGE 1 Signed ReportCARBAMAZEPINE (TEGRETOL) 2022-09-15 06:12:00* Test Item Value Reference Range Interpretation Comme nts CARBAMAZEPINE (TEGRETOL) (test code = CARB) 1.5 ug/mL 4.0-12.0 L In conjunction w ith other antiepileptic drugs Therapeutic 4.0 - 8.0 Toxicity 9.0 - 12.0 Carbamazepine alone Therapeutic 8.0 - 12.0 Detection Limit = 2.0 <2.0 indicates None DetectedPerformed At: [facility] [address] [id number] Michael Reeves MD Ph:[phone] VALPROIC ACID (DEPAKENE)2022-09-15 06:12:00* Test Item Value Reference Range Interpretation Comme nts VALPROIC ACID (DEPAKENE) (te st code = VALP) 80.6 mcG/ML 50.0-100.0 N COMPREHENSIVE METABOLIC [id number] 06:00:00* Test Item Value Reference Range Interpretation [...] interpret this result as normal/abnormal. CBC W/AUTO [id number] 05:37:00* Test Item Value Reference Range Interpretation [...] NRBC#) 0.00 K/mm3 0.0-0.05 N GLUCOSE BEDSIDE [id number] 20:03:00* Test Item Value Reference Range Interpretation Comme nts GLUCOSE BEDSIDE TESTING (karen t code = GLUBED) 117 MG/DL 70-119 N DRUGS OF ABUSE SCREEN [id number] 11:42:00* Test Item Value Reference Range Interpretation [...] result as normal/abnormal. - CT HEAD/BRAIN W/O [id number] 11:37:00 [facility] : 1975 Sex: F Patient Name: BHUMIKA JONES Unit No: [id number] EXAMS: CPT CODE: [id number] CT HEAD/BRAIN W/O CONT 41885 EXAMINATION: - CT HEAD/BRAIN W/O CONT COMPARISON: None HISTORY: Seizure LOCATION CODE: [id number]: CT of the Brain without contrast. Axial [...] Technologist: ASUNCION EARLDI: DLP: Trnscrpt: 09/14/2022 (1137) [email or web address] DENIZ Lugo NAME: [facility] PHYS: Vladimir Menchaca MD [address] [place] [address] : 1975 AGE: 47 SEX: F [place] [address] LOC: NEHA Cintron PHONE #: [phone] EXAM DATE: 09/14/2022 STATUS: ADM IN FAX #: [phone] RAD #: D/C DT PAGE 1 Signed Report Patient Name: BHUMIKA JONES Unit No: [id number] EXAMS: CPT CODE: [id number] CT HEAD/BRAIN W/O CONT 39209 (Continued) Orig Print D/T: S: 09/14/2022 (1140) DENIZ Lugo NAME: [facility] PHYS: Vladimir Menchaca MD [address] [place] [address] : 1975 AGE: 47 SEX: Etta [place] [address] LOC: NEHA Cintron PHONE #: [phone] EXAM DATE: 09/14/2022 STATUS: ADM IN FAX #: [phone] RAD #: D/C DT PAGE 2 Signed [...] AVOIDED DUE TO POSSIBLE HEPARINCONTAMINATION HCG SERUM [id number] 06:51:00* Test Item Value Reference Range Interpretation [...] CK) 268 Unit/L 26-192 H CBC W/AUTO [id number] 03:43:00* Test Item Value Reference Range Interpretation [...] = NRBC#) 0.00 K/mm3 0.0-0.05 N URINALYSIS [id number] 03:41:00* Test Item Value Reference Range Interpretation [...] RARE /LPF NONE - XR CHEST 2 [id number] 02:06:00 [facility] : 1975 Sex: FFAX: Suleman Carvalho [phone] [place]: [address]: REG Patient Name: ROBERTBHUMIKA Unit No: [id number] EXAMS: CPT CODE: [id number] XR CHEST 2 V 79064 EXAM: - XR CHEST 2 V HISTORY: [...] D/T: S: 09/14/2022 (020) DENIZ Lugo NAME: [address] PHYS: GISEL - Suleman Carvalho, [place] [address] : 1975 AGE: 47 SEX: F LOC: Ginger.LISSETH PHONE #: [phone] EXAM DATE: 09/14/2022 STATUS: REGER FAX #: [phone] RAD NO: DC Dt: PAGE 1 Signed ReportCOMPREHENSIVE METABOLIC [id number] 12:49:00* Test Item Value Reference Range Interpretation [...] used to interpret this result as normal/abnormal. MBFWHLBPX7116-11-32 12:49:00* Test Item Value Reference Range Interpretation Comme nts MAGNESIUM (test code = MAG) 1.7 MG/DL 1.6-2.6 N CBC W/AUTO [id number] 12:36:00* Test Item Value Reference Range Interpretation [...] RARE /LPF NONE DRUGS OF ABUSE SCREEN [id number] 00:33:00* Test Item Value Reference Range Interpretation [...] 300 ng/mL UA RFLX MICR CULT IF [id number] 00:30:00* Test Item Value Reference Range Interpretation [...] culture: Suprapubic PainSpecimen Description: CLEAN CATCHBASIC METABOLIC [id number] 00:18:00* Test Item Value Reference Range Interpretation [...] 8.9 mg/dl 8.0-10.5 N HEPATIC FUNCTION PANEL [id number] 00:18:00* Test Item Value Reference Range Interpretation [...] ALKP) 113 Units/L 50.0-136.0 N HCG SERUM [id number] 00:18:00* Test Item Value Reference Range Interpretation Comme nts HCG SERUM QUAL (test code = HCGQL) NEGATIVE NEGATIVE [id number] 00:18:00* Test Item Value Reference Range Interpretation Comme nts ALCOHOL (test code = ALC) 0.00 gm/dL 0.00-0.00 N ETHYL ALCOHOL MIRELLA HARRELL - INTERPRETATION: 0.050 GM/DL - NOT INTOXICATED 0.100 GM/DL - INTOXICATED 0.350-0.450 GM/DL - SEVERELY INTOXICATED 0.550 GM/DL- FATAL INTOXICATION Coronavirus 2019 nCoV Yweehid3404-27-68 00:09:00* Test Item Value Reference Range Interpretation Comme nts Coronavirus 2019 nCoV Bedside (test code = SHJUI94RZMUS) Negative NEGATIVE Negative results should be treated as presumptive and ifinconsistent with clinical signs and symptoms, or necessaryfor patient management, should be tested with an alternativemolecular assay. Negative results do not preclude ETNR-WiV-3redaeiwpq and should not be used as the sole basis forpatient management decisions. Negative results should beconsidered in the context of a patient's recent exposures,history, presence of clinical signs and symptoms consistentwith COVID-19. CBC W/AUTO [id number] 23:58:00* Test Item Value Reference Range Interpretation [...] X10 3uL 0.00-0.01 N COMP. METABOLIC PANEL (73833)2022-09-07 02:12:41* Test Item Value Reference Range Interpretation Comme nts NA (test code = 7397864704) 133 mmol/L 135-145 L K (test code = 7118118268) 4.4 mmol/L 3.5-5.0 CL (test code = 2911015621) 102 mmol/L 98-108 CO2 TOTAL (test code = 1870511861) 25 mmol/L 23-31 AGAP (test code = 8776916043) 6 2-16 BUN (test code = 7405688492) 22 mg/dL 7-23 GLUCOSE (test code = 9918354822) 97 mg/dL 70-110 CREATININE (test code = 7731991763) 0.40 mg/dL 0.50-1.04 L TOTAL BILI (test code = 6086937343) 0.3 mg/dL 0.1-1.1 CALCIUM (test code = 5126420195) 8.9 mg/dL 8.6-10.6 T PROTEIN (test code = 3094674483) 7.7 g/dL 6.3-8.2 ALBUMIN (test code = 7559782888) 4.0 g/dL 3.5-5.0 ALK PHOS (test code = 9887027667) 104 U/L 34-122 ALTv (test code = 1742-6) 15 U/L 5-35 AST(SGOT) (test code = 3411144758) 22 U/L 13-40 eGFR (test code = 0084317873) 170.4 mL/min/1.73m2 HANNAH (test code = HANNAH) [...] imaging tests). Lab Interpretation (test code = 29677-3) Abnormal [facility] WITH [id number] 02:01:20* Test Item Value Reference Range Interpretation Comme nts WBC (test code = 6690-2) 6.17 See_Comment [Automated Analizaa [employer]] The system which generated this result transmitted [...] 32.9 g/dL 31.6-35.1 RDW-SD (test code = 93601-7) 48.1 fL 39.0-49.9 RDW-CV (test code = 788-0) 14.7 % 12.0-15.5 PLT (test code = 777-3) 272 See_Comment [Automated Analizaa ge] The system which generated this result transmitted reference range: 166 - 358 10*3/?L. The reference range was not used to interpret this result as normal/abnormal. MPV (test code = 52246-1) 9.6 fL 9.5-12.9 NRBC/100 WBC (test code = 5858247956) 0.0 See_Comment [Automated [employer] ssage] The system which generated this result transmitted reference range: 0.0 - 10.0 /100 WBCs. The reference range was not used to interpret this result as normal/abnormal. NRBC x10^3 (test code = 0914070299) See_Comment [Automated Analizaa ge] The system which generated this result transmitted reference range: 10*3/?L. The reference range was not used to interpret this result as normal/abnormal. GRAN MAT (NEUT) % (test code = 770-8) 42.2 % IMM GRAN % (test code = 3445974752) 0.20 % LYMPH % (test code = 736-9) 38.2 % MONO % (test code = 5905-5) 12.6 % EOS % (test code = 713-8) 5.8 % BASO % (test code = 706-2) 1.0 % GRAN MAT x10^3(ANC) (test code = 7907621405) 2.60 10*3/uL 1.88-7.09 IMM GRAN x10^3 (test code = 1649363970) 0.00-0.06 LYMPH x10^3 (test code = 731-0) 2.36 10*3/uL 1.32-3.29 MONO x10^3 (test code = 742-7) 0.78 10*3/uL 0.33-0.92 EOS x10^3 (test code = 711-2) 0.36 10*3/uL 0.03-0.39 BASO x10^3 (test code = 704-7) 0.06 10*3/uL 0.01-0.07 Lab Interpretation (test code = 69520-4) [facility]normal [facility] ([facility]19[facility] by RT-PCR (HIGH RISK) 2020-08-19 00:00:00* Test Item Value Reference Range Interpretation Comme nts SARS-CoV-2 INTERPRETATION (t est code = 90058) NEGATIVE SOURCE (test code = 53295) NOT SPECIFIED [facility] OengnpARWH-OgS-3 (COVID-19) by RT-PCR (HIGH RISK)2020-08-19 00:00:00* Test Item Value Reference Range Interpretation Comme nts SARS-CoV-2 INTERPRETATION (t est code = 61179) NEGATIVE SOURCE (test code = 68682) NOT SPECIFIED [facility] F VgrsvsCYAY-CrS-0 (COVID-19) by RT-PCR (HIGH RISK)2020-08-19 00:00:00* Test Item Value Reference Range Interpretation Comme nts SARS-CoV-2 INTERPRETATION (t est code = 62257) NEGATIVE SOURCE (test code = 64580) NOT SPECIFIED [facility] AustinHPV HIGH RISK WITH GENOTYPE, [id number] 00:00:00* Test Item Value Reference Range Interpretation Comme nts HPV HIGH RISK INTERP (test c ode = 47572) NEGATIVE HPV 16 (test code = 80750) NEGATIVE HPV 18 (test code = 43313) NEGATIVE HPV, HR, OTHER GENOTYPES (te st code = 15334) NEGATIVE [facility] F AustinPAP TEST, THINPREP, [id number] 00:00:00* Test Item Value Reference Range Interpretation Comme nts SOURCE: (test code = 8001) Cervical/Endocervical SLIDES: (test code = 8011) 1 LMP: (test code = 8021) 06/2017 SPECIMEN ADEQUACY: (test code = 00423) (NOTE) INTERPRETATION: (test code = 78104) NILM/NO EPITH. ABNORMALITY;SEE BELOW CORPORATE RECRUITER: (test code = 8101) Goodwin, CT(ASCP) IAC LOCATION: (test code = 27701) (NOTE) CPT: (test code = 8140) (NOTE) [facility] F AustinHPV HIGH RISK WITH GENOTYPE, [id number] 00:00:00* Test Item Value Reference Range Interpretation Comme nts HPV HIGH RISK INTERP (test c ode = 15831) NEGATIVE HPV 16 (test code = 32884) NEGATIVE HPV 18 (test code = 63260) NEGATIVE HPV, HR, OTHER GENOTYPES (te st code = 96585) NEGATIVE Henry Quiles AustinPAP TEST, THINPREP, [id number] 00:00:00* Test Item Value Reference Range Interpretation Comme nts SOURCE: (test code = 8001) Cervical/Endocervical SLIDES: (test code = 8011) 1 LMP: (test code = 8021) 06/2017 SPECIMEN ADEQUACY: (test code = 76345) (NOTE) INTERPRETATION: (test code = 25337) NILM/NO EPITH. ABNORMALITY;SEE BELOW CORPORATE RECRUITER: (test code = 8101) Goodwin, CT(ASCP) IAC LOCATION: (test code = 79641) (NOTE) CPT: (test code = 8140) (NOTE) Henry F AustinHPV HIGH RISK WITH GENOTYPE, [id number] 00:00:00* Test Item Value Reference Range Interpretation Comme nts HPV HIGH RISK INTERP (test c ode = 54936) NEGATIVE HPV 16 (test code = 09339) NEGATIVE HPV 18 (test code = 78221) NEGATIVE HPV, HR, OTHER GENOTYPES (te st code = 18650) NEGATIVE Henry F AustinPAP TEST, THINPREP, [id number] 00:00:00* Test Item Value Reference Range Interpretation Comme nts SOURCE: (test code = 8001) Cervical/Endocervical SLIDES: (test code = 8011) 1 LMP: (test code = 8021) 06/2017 SPECIMEN ADEQUACY: (test code = 97806) (NOTE) INTERPRETATION: (test code = 73693) NILM/NO EPITH. ABNORMALITY;SEE BELOW CORPORATE RECRUITER: (test code = 8101) KANA Hamlin(ASCP) IAC LOCATION: (test code = 82434) (NOTE) CPT: (test code = 8140) (NOTE) Henry Quiles AustinCT HEAD WO LWRRWAMH9645-81-05 22:34:12Impression: 1. ?No acute intracranial process. 2. [...] patient. Please correlate with history and physicalexamination.[facility] TexasXR CERVICAL SPINE 2 [id number] 22:29:40No acute osseous abnormality. Preliminary Report Dictated [...] reviewed this study and agree with theabove report.[facility] TexasCBC WITH KORVSPDMBHIL3777-82-80 21:46:00* Test Item Value Reference Range Interpretation [...] 32.2 g/dL 31.6-35.1 RDW-SD (test code = 43471-6) 45.1 fL 39-49.9 RDW-CV (test code = 788-0) 14.6 % 12-15.5 PLT (test code = 777-3) See_Comment L [Automated messa ge] The system which generated this result transmitted reference range: 166 - 358 10*3/?L. The reference range was not used to interpret this result as normal/abnormal. MPV (test code = 56979-2) 9.0 fL 9.5-12.9 L NRBC/100 WBC (test code = 1837847866) See_Comment [Automated me ssage] The system which generated this result transmitted reference range: 0.0 - 10.0 /100 WBCs. The reference range was not used to interpret this result as normal/abnormal. NRBC x10^3 (test code = 5730761336) <0.01 See_Comment [Automated messa ge] The system which generated this result transmitted reference range: 10*3/?L. The reference range was not used to interpret this result as normal/abnormal. GRAN MAT (NEUT) % (test code = 770-8) 51.3 % IMM GRAN % (test code = 1332819697) 0.40 % LYMPH % (test code = 736-9) 24.4 % MONO % (test code = 5905-5) 23.1 % EOS % (test code = 713-8) 0.4 % BASO % (test code = 706-2) 0.4 % GRAN MAT x10^3(ANC) (test code = 7582549516) 2.48 10*3/uL 1.88-7.09 IMM GRAN x10^3 (test code = 0834682801) <0.03 0-0.06 LYMPH x10^3 (test code = 731-0) 1.18 10*3/uL 1.32-3.29 L MONO x10^3 (test code = 742-7) 1.12 10*3/uL 0.33-0.92 H EOS x10^3 (test code = 711-2) <0.03 0.03-0.39 L BASO x10^3 (test code = 704-7) <0.03 0.01-0.07 Lab Interpretation (test code = 21791-5) Abnormal [facility] CERVICAL SPINE 2 [id number] 03:28:03No acute osseous abnormality. Preliminary Report Dictated [...] study and agree withthe above report. [facility] TexasValproic Acid Eospy0359-05-48 08:03:22* Test Item Value Reference Range Interpretation Comme nts Valproic Acid Level (test co de = Valproic Acid Level) 57.6 ug/mL(g) 50.0-100.0 Hemoglobin [id number] 09:36:00* Test Item Value Reference Range Interpretation Comme nts Hemoglobin A1c (test code = Hemoglobin A1c) 5.0 % 4.8-5.9 Non Diabetic 4.8-5.9%Diabetic <7.0% CT Shoulder w/o Contrast Zpze6377-54-53 16:49:13Patient: BHUMIKA JONES Date/Time01/09/2019 16:14 CDTReason for [...] Adam FSigned (Electronic Signature): 01/09/2019 4:49 pmRPR Bnskwxegsqm2328-40-09 21:33:20* Test Item Value Reference Range Interpretation [...] 04-23-2020 N XR Shoulder Complete 2+ Views Lsnr8957-45-21 15:41:25Patient: BHUMIKA JONES Date/Time01/07/2019 15:25 CDTReason for [...] CSigned (Electronic Signature): 01/07/2019 3:41 pmThyroid Stimulating Gqljxuu2374-20-71 03:07:04* Test Item Value Reference Range Interpretation Comme nts TSH (test code = TSH) 9.650 mIU/mL 0.270-4.200 H Lipid Cxagg9276-04-81 03:07:03* Test Item Value Reference Range Interpretation Comme nts Cholesterol Total (test code = Cholesterol Total) 199 mg/dL 0-200 RISK OF HEART DISEASEPublished by [place] Analyte Optimal Borderline [...] is LDL/HDL Ratio=LDL Calc/HDL Chol HCG Qualitative Phjve6786-97-06 02:33:13* Test Item Value Reference Range Interpretation Comme nts HCG, Serum Qual (test code = HCG, Serum Qual) Negative Lot # (test code = Lot #) [id number] N Expiration Dt (test code = Expiration Dt) 2020-04-23 N Neg Control (test code = Neg Control) Negative Pos Control (test code = Pos Control) Positive Internal QC (test code = Int ernal QC) Acceptable Drugs of Abuse Urine 34423-70-27 18:58:11* Test Item Value Reference Range Interpretation [...] = Cannabinoid Screen Ur) Negative Negative Alcohol Tsvio7099-90-80 18:47:34* Test Item Value Reference Range Interpretation Comme nts Ethanol Level (test code = Ethanol Level) <0.00 g/dL 0.00-0.01 Intoxicated 0.08 0 g/dL or more Ethanol Inst (test code = Ethanol Inst) <0 N Comprehensive Metabolic Duhts6459-21-65 18:47:33* Test Item Value Reference Range Interpretation [...] A/G Ratio) 1.0 ratio N Comprehensive Metabolic Lvqtt6590-60-54 18:47:33* Test Item Value Reference Range Interpretation [...] the [employer], http://nkdep.nih.gov Comprehensive Metabolic [id number] 18:47:33* Test Item Value Reference Range Interpretation [...] [employer], http://nkdep.nih.gov Complete Blood Count with [id number] 18:15:23* Test Item Value Reference Range Interpretation [...] code = IPF) 0 % N Automated [id number] 18:15:23* Test Item Value Reference Range Interpretation Comme nts Neutro Auto (test code = Sunny tro Auto) 42.1 % 36.0-70.0 Lymph Auto (test code = Lymph Auto) 40.0 % 12.0-44.0 [place] Auto (test code = [place] Auto) 12.2 % 0.0-11.0 H Eos, Auto (test code = Eos, Auto) 4.9 % 0.0-7.0 Basophil Auto (test code = B asophil Auto) 0.6 % 0.0-2.0 Neutro Absolute (test code = Neutro Absolute) 2.2 x10 1.6-7.4 Lymph Absolute (test code = Lymph Absolute) 2.06 x10 .50-4.60 [place] Absolute (test code = M richa Absolute) .63 x10 .00-1.20 Eos Absolute (test code = Eo s Absolute) 0.25 x10 0.00-0.74 Baso Absolute (test code = B aso Absolute) 0.03 x10 0.00-0.21 IG [id number] 18:15:23* Test Item Value Reference Range Interpretation Comme nts IG (test code = IG) 0.2 % 0.0-5.0 IG Abs (test code = IG Abs) 0 x10 N VALPROIC [id number] 00:00:00* Test Item Value Reference Range Interpretation Comme nts VALPROIC ACID (test code = 3025) 69.8 UG/ML Henry Quiles [place] [id number] 00:00:00* Test Item Value Reference Range Interpretation Comme nts VALPROIC ACID (test code = 3025) 69.8 UG/ML Henry Quiles [place] [id number] 00:00:00* Test Item Value Reference Range Interpretation Comme nts VALPROIC ACID (test code = 3025) 69.8 UG/ML Henry Quiles [place] CULTURE, NO [id number] 00:00:00* Test Item Value Reference Range Interpretation Comme nts URINE CULTURE, NO SENS (test code = 90466) SPECIMEN NUMBER: [id number] Henry Quiles AustinURINE CULTURE, NO [id number] 00:00:00* Test Item Value Reference Range Interpretation Comme nts URINE CULTURE, NO SENS (test code = 03669) SPECIMEN NUMBER: [id number] Henry Quiles AustinURINE CULTURE, NO [id number] 00:00:00* Test Item Value Reference Range Interpretation Comme nts URINE CULTURE, NO SENS (test code = 85657) SPECIMEN NUMBER: [id number] Henry Quiles AustinIRON BINDING CAPACITY AND IRON AND % [id number] 00:00:00* Test Item Value Reference Range Interpretation Comme nts IRON, SERUM (test code = 2222) 42 UG/DL UNSATURATED IBC (test code = 79185) 279 UG/DL CALC TOTAL IBC (test code = 2077) 321 UG/DL CALC % IRON SAT (test code = 2079) 13 % Henry F [id number] 00:00:00* Test Item Value Reference Range Interpretation Comme nts FERRITIN (test code = 2075) 15 NG/ML Henry Quiles [id number] 00:00:00* Test Item Value Reference Range Interpretation Comme nts TRANSFERRIN (test code = 4936) 269 MG/DL Henry Quiles AustinFOLIC [id number] 00:00:00* Test Item Value Reference Range Interpretation Comme nts FOLIC ACID (test code = 2695) 5.4 UG/L Henry Quiles AustinIRON BINDING CAPACITY AND IRON AND % [id number] 00:00:00* Test Item Value Reference Range Interpretation Comme nts IRON, SERUM (test code = 2222) 42 UG/DL UNSATURATED IBC (test code = 02359) 279 UG/DL CALC TOTAL IBC (test code = 7) 321 UG/DL CALC % IRON SAT (test code = 9) 13 % Henry Quiles [id number] 00:00:00* Test Item Value Reference Range Interpretation Comme nts FERRITIN (test code = 5) 15 NG/ML Henry F [id number] 00:00:00* Test Item Value Reference Range Interpretation Comme nts TRANSFERRIN (test code = 4936) 269 MG/DL Henry F AustinFOLIC [id number] 00:00:00* Test Item Value Reference Range Interpretation Comme nts FOLIC ACID (test code = 2695) 5.4 UG/L Henry F AustinIRON BINDING CAPACITY AND IRON AND % [id number] 00:00:00* Test Item Value Reference Range Interpretation Comme nts IRON, SERUM (test code = 2222) 42 UG/DL UNSATURATED IBC (test code = 94338) 279 UG/DL CALC TOTAL IBC (test code = 7) 321 UG/DL CALC % IRON SAT (test code = 9) 13 % Henry F [id number] 00:00:00* Test Item Value Reference Range Interpretation Comme nts FERRITIN (test code = 2075) 15 NG/ML Henry F [id number] 00:00:00* Test Item Value Reference Range Interpretation Comme nts TRANSFERRIN (test code = 4936) 269 MG/DL Henry F AustinFOLIC [id number] 00:00:00* Test Item Value Reference Range Interpretation Comme nts FOLIC ACID (test code = 2695) 5.4 UG/L Henry F AustinCULTURE, URINE [ADDED]2018-06-12 00:00:00* Test Item Value Reference Range Interpretation Comme nts CULTURE, URINE (test code = 23952) SPECIMEN NUMBER: [id number] Henry Quiles AustinCULTURE, URINE [ADDED]2018-06-12 00:00:00* Test Item Value Reference Range Interpretation Comme nts CULTURE, URINE (test code = 96212) SPECIMEN NUMBER: [id number] Henry ContrerasCULTURE, URINE [ADDED]2018-06-12 00:00:00* Test Item Value Reference Range Interpretation Comme nts CULTURE, URINE (test code = 33170) SPECIMEN NUMBER: [id number] Henry ContrerasC W/AUTO [id number] 00:00:00* Test Item Value Reference Range Interpretation [...] = 1015) 184 K/UL Henry ContrerasCOMPREHENSIVE METABOLIC [id number] 00:00:00* Test Item Value Reference Range Interpretation Comme nts GLUCOSE (test code = 2217) 86 MG/DL BUN (test code = 2208) 16 MG/DL CREATININE (test code = 2214) 0.45 MG/DL eGFR AMER. (test cod e = 53826) 141 ML/MIN/1.73 eGFR NON- AMER. (test code = 98484) 122 ML/MIN/1.73 CALC BUN/CREAT (test code = [...] code = 2219) 17 U/L Henry ContrerasVALPROIC [id number] 00:00:00* Test Item Value Reference Range Interpretation Comme nts VALPROIC ACID (test code = 3025) 100.9 UG/ML Henry ContrerasCBC W/AUTO [id number] 00:00:00* Test Item Value Reference Range Interpretation [...] = 1015) 184 K/UL Henry ContrerasCOMPREHENSIVE METABOLIC [id number] 00:00:00* Test Item Value Reference Range Interpretation Comme nts GLUCOSE (test code = 2217) 86 MG/DL BUN (test code = 2208) 16 MG/DL CREATININE (test code = 2214) 0.45 MG/DL eGFR AMER. (test cod e = 20732) 141 ML/MIN/1.73 eGFR NON- AMER. (test code = 81410) 122 ML/MIN/1.73 CALC BUN/CREAT (test code = [...] code = 2219) 17 U/L Henry ContrerasVALPROIC [id number] 00:00:00* Test Item Value Reference Range Interpretation Comme nts VALPROIC ACID (test code = 3025) 100.9 UG/ML Henry ContrerasCBC W/AUTO [id number] 00:00:00* Test Item Value Reference Range Interpretation [...] 1015) 184 K/UL Henry Quiles BenCOMPREHENSIVE METABOLIC [id number] 00:00:00* Test Item Value Reference Range Interpretation Comme nts GLUCOSE (test code = 2217) 86 MG/DL BUN (test code = 2208) 16 MG/DL CREATININE (test code = 2214) 0.45 MG/DL eGFR AMER. (test cod e = 87661) 141 ML/MIN/1.73 eGFR NON- AMER. (test code = 28168) 122 ML/MIN/1.73 CALC BUN/CREAT (test code = [...] code = 2219) 17 U/L Henry ContrerasVALPROIC [id number] 00:00:00* Test Item Value Reference Range Interpretation Comme nts VALPROIC ACID (test code = 3025) 100.9 UG/ML Henry ContrerasPAP TEST, THINPREP, [id number] 00:00:00* Test Item Value Reference Range Interpretation Comme nts SOURCE: (test code = 8001) Cervical/Endocervical SLIDES: (test code = 8011) 1 LMP: (test code = 8021) 03/2017 SPECIMEN ADEQUACY: (test code = 11510) (NOTE) INTERPRETATION: (test code = 00712) NO EPITHELIAL ABNORMALITY SEE BELOW CORPORATE RECRUITER: (test code = 8101) KANA Merida(ASCP)IAC LOCATION: (test code = 91577) (NOTE) CPT: (test code = 8140) (NOTE) Henry Quiles AustinHPV HIGH RISK WITH GENOTYPE, [id number] 00:00:00* Test Item Value Reference Range Interpretation Comme nts HPV HIGH RISK INTERP (test c ode = 55960) NEGATIVE HPV 16 (test code = 88650) NEGATIVE HPV 18 (test code = 81224) NEGATIVE HPV, HR, OTHER GENOTYPES (te st code = 60753) NEGATIVE Henry Quiles AustinPAP TEST, THINPREP, [id number] 00:00:00* Test Item Value Reference Range Interpretation Comme nts SOURCE: (test code = 8001) Cervical/Endocervical SLIDES: (test code = 8011) 1 LMP: (test code = 8021) 03/2017 SPECIMEN ADEQUACY: (test code = 05643) (NOTE) INTERPRETATION: (test code = 22484) NO EPITHELIAL ABNORMALITY SEE BELOW CORPORATE RECRUITER: (test code = 8101) KANA Merida(ASCP)IAC LOCATION: (test code = 45739) (NOTE) CPT: (test code = 8140) (NOTE) Henry ContrerasHPV HIGH RISK WITH GENOTYPE, [id number] 00:00:00* Test Item Value Reference Range Interpretation Comme nts HPV HIGH RISK INTERP (test c ode = 59477) NEGATIVE HPV 16 (test code = 34790) NEGATIVE HPV 18 (test code = 89753) NEGATIVE HPV, HR, OTHER GENOTYPES (te st code = 68607) NEGATIVE Henry ContrerasPAP TEST, THINPREP, [id number] 00:00:00* Test Item Value Reference Range Interpretation Comme nts SOURCE: (test code = 8001) Cervical/Endocervical SLIDES: (test code = 8011) 1 LMP: (test code = 8021) 03/2017 SPECIMEN ADEQUACY: (test code = 53122) (NOTE) INTERPRETATION: (test code = 86965) NO EPITHELIAL ABNORMALITY SEE BELOW CORPORATE RECRUITER: (test code = 8101) KANA Merida(ASCP)IAC LOCATION: (test code = 37587) (NOTE) CPT: (test code = 8140) (NOTE) Henry ContrerasHPV HIGH RISK WITH GENOTYPE, [id number] 00:00:00* Test Item Value Reference Range Interpretation Comme nts HPV HIGH RISK INTERP (test c ode = 22855) NEGATIVE HPV 16 (test code = 35053) NEGATIVE HPV 18 (test code = 70481) NEGATIVE HPV, HR, OTHER GENOTYPES (te st code = 53578) NEGATIVE Henry ContrerasHIV AB/AG COMBO RFLX [id number] 00:00:00* Test Item Value Reference Range Interpretation Comme nts HIV 1/2 4TH GEN, RFLX CONF ( test code = 3514) NON-REACTIVE Henry ContrerasGC AND CHLAMYDIA AMPLIFIED, [id number] 00:00:00* Test Item Value Reference Range Interpretation Comme nts GONORRHEA, TMA (test code = 81902) NEGATIVE CHLAMYDIA, TMA (test code = 40193) NEGATIVE Henry F AustinGC AND CHLAMYDIA AMPLIFIED, [id number] 00:00:00* Test Item Value Reference Range Interpretation Comme nts GONORRHEA, TMA (test code = 76682) NEGATIVE CHLAMYDIA, TMA (test code = 46035) NEGATIVE Henry F AustinHIV AB/AG COMBO RFLX [id number] 00:00:00* Test Item Value Reference Range Interpretation Comme nts HIV 1/2 4TH GEN, RFLX CONF ( test code = 3514) NON-REACTIVE Henry F AustinGC AND CHLAMYDIA AMPLIFIED, [id number] 00:00:00* Test Item Value Reference Range Interpretation Comme nts GONORRHEA, TMA (test code = 59187) NEGATIVE CHLAMYDIA, TMA (test code = 57868) NEGATIVE Henry F AustinHIV AB/AG COMBO RFLX [id number] 00:00:00* Test Item Value Reference Range Interpretation Comme nts HIV 1/2 4TH GEN, RFLX CONF ( test code = 3514) NON-REACTIVE Henry Quiles AustinLIPID [id number] 00:00:00* Test Item Value Reference Range Interpretation Comme nts CHOLESTEROL (test code = 2210) 186 MG/DL TRIGLYCERIDES (test code = 2232) 131 MG/DL HDL CHOLESTEROL (test code = 2220) 67 MG/DL CALC LDL CHOL (test code = 2237) 93 MG/DL RISK RATIO LDL/HDL (test cod e = 2238) 1.39 RATIO Henry F AustinCBC W/AUTO [id number] 00:00:00* Test Item Value Reference Range Interpretation [...] code = 1015) 152 K/UL Henry ContrerasHEMOGLOBIN [id number] 00:00:00* Test Item Value Reference Range Interpretation Comme shaina HEMOGLOBIN A1c (test code = 39777) 5.2 % Henry Quiles [id number] 00:00:00* Test Item Value Reference Range Interpretation Comme nts TSH (test code = 2821) 2.020 UIU/ML Henry ContrerasCOMPREHENSIVE METABOLIC [id number] 00:00:00* Test Item Value Reference Range Interpretation Comme nts GLUCOSE (test code = 2217) 90 MG/DL BUN (test code = 2208) 21 MG/DL CREATININE (test code = 2214) 0.42 MG/DL eGFR AMER. (test cod e = 12527) 145 ML/MIN/1.73 eGFR NON- AMER. (test code = 32697) 126 ML/MIN/1.73 CALC BUN/CREAT (test code = [...] (test code = 2219) <5 U/L Henry ContrersaLIPID [id number] 00:00:00* Test Item Value Reference Range Interpretation Comme nts CHOLESTEROL (test code = 2210) 186 MG/DL TRIGLYCERIDES (test code = 2232) 131 MG/DL HDL CHOLESTEROL (test code = 2220) 67 MG/DL CALC LDL CHOL (test code = 2237) 93 MG/DL RISK RATIO LDL/HDL (test cod e = 2238) 1.39 RATIO Henry ContrerasCBC W/AUTO [id number] 00:00:00* Test Item Value Reference Range Interpretation [...] code = 1015) 152 K/UL Henry ContrerasHEMOGLOBIN [id number] 00:00:00* Test Item Value Reference Range Interpretation Comme shaina HEMOGLOBIN A1c (test code = 88334) 5.2 % Henry [id number] 00:00:00* Test Item Value Reference Range Interpretation Comme nts TSH (test code = 2821) 2.020 UIU/ML Henry ContrerasCOMPREHENSIVE METABOLIC [id number] 00:00:00* Test Item Value Reference Range Interpretation Comme nts GLUCOSE (test code = 2217) 90 MG/DL BUN (test code = 2208) 21 MG/DL CREATININE (test code = 2214) 0.42 MG/DL eGFR AMER. (test cod e = ) 145 ML/MIN/1.73 eGFR NON- AMER. (test code = 57202) 126 ML/MIN/1.73 CALC BUN/CREAT (test code = [...] code = 2219) <5 U/L Henry Quiles BenLIPID [id number] 00:00:00* Test Item Value Reference Range Interpretation Comme nts CHOLESTEROL (test code = 2210) 186 MG/DL TRIGLYCERIDES (test code = 2232) 131 MG/DL HDL CHOLESTEROL (test code = 2220) 67 MG/DL CALC LDL CHOL (test code = 2237) 93 MG/DL RISK RATIO LDL/HDL (test cod e = 2238) 1.39 RATIO Henry Quiles BenCBC W/AUTO [id number] 00:00:00* Test Item Value Reference Range Interpretation [...] (test code = 1015) 152 K/UL Henry Quiles BenHEMOGLOBIN [id number] 00:00:00* Test Item Value Reference Range Interpretation Comme shaina HEMOGLOBIN A1c (test code = 46820) 5.2 % Henry Etta [id number] 00:00:00* Test Item Value Reference Range Interpretation Comme nts TSH (test code = 2821) 2.020 UIU/ML Henry ContrerasCOMPREHENSIVE METABOLIC [id number] 00:00:00* Test Item Value Reference Range Interpretation Comme nts GLUCOSE (test code = 2217) 90 MG/DL BUN (test code = 2208) 21 MG/DL CREATININE (test code = 2214) 0.42 MG/DL eGFR AMER. (test cod e = 34967) 145 ML/MIN/1.73 eGFR NON- AMER. (test code = 18049) 126 ML/MIN/1.73 CALC BUN/CREAT (test code = [...]
== END 2024-07-12 16:36 | disposition left against medical advice (07) ==
LOC: ER 15:31
DX: Z53.21 Procedure and treatment not carried out due to patient leaving prior to being seen by health care provider (principal)

== ENCOUNTER 2024-07-22 13:31 | Emergency (ER) | payer SELFPAY ==
--- OUTSIDE RECORDS SUMMARY | 2024-07-22 13:39 | XMS REPORT | Continuity of Care Document ---
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 17:12:35 2023-12-23 17:12:35 Outpatient SFA [facility] [id number] Henry Quiles Ben 2023-12-22 16:03:42 2023-12-22 16:03:42 Outpatient SFA [facility] [id number] Henry Contreras 2023-12-01 14:21:07 2023-12-01 14:21:07 Outpatient SFA [facility] [id number] Henry Quiles [place] 2023-11-25 16:08:00 2023-11-25 16:08:00 Outpatient SFA S[facility] 03 Henry Quiles [place] 2023-11-25 00:00:00 2023-11-25 00:00:00 Outpatient Visit SFA [id number] Henry Quiles Ben 2023-11-23 19:45:00 2023-11-24 19:04:00 Outpatient Encounter 1 [facility] 2.16.840.1. [id number] [facility]) 2023-11-21 19:00:00 2023-11-22 01:00:00 Emergency ER [id number] [facility] 2023-11-16 23:05:00 2023-11-21 17:28:00 Inpatient ER JUAN MIGUEL [id number] [facility] 2023-11-15 16:24:00 2023-11-15 22:54:00 Emergency ER IMMARAJ, MELVINA CHRTJP CHRTJP [id number] [facility] 2023-10-28 12:27:38 2023-10-28 12:27:[address] [facility] [id number] Henry Contreras 2023-10-25 15:44:11 2023-10-25 15:44:[address] [facility] 3 Henry Contreras 2023-10-25 00:00:00 2023-10-25 00:00:[address] [facility] [id number] Henry Contreras 2023-10-04 15:25:52 2023-10-04 15:25:[address] [facility] [id number] Henry Contreras 2023-10-01 00:00:00 2023-10-01 00:00:00 Telephone [facility] [place] 1.2.840.114 350.1.13.10 4.2.7.2.686 [id number] [facility] 2023-09-16 16:03:08 2023-09-16 16:03:[address] [facility] [id number] Henry Contreras 2023-08-01 10:00:49 2023-08-01 10:00:[address] [facility] [id number] Henry Contreras 2023-07-23 14:20:00 2023-07-23 16:57:02 Outpatient R INDIO [facility] [id number] [facility] 2023-07-23 14:20:00 2023-07-23 16:57:02 Office Visit Man[facility] [place] 1.2.840.114 350.1.13.10 4.2.7.2.686 [id number] [facility] 2023-07-23 00:00:00 2023-07-23 00:00:00 Orders Only Doctor Unassigned, Ignacio [facility] 1.2.840.114 350.1.13.10 4.2.7.2.686 [id number] [facility] 2023-07-04 16:48:23 2023-07-04 16:48:23 Outpatient [facility] [id number] Henry Contreras 2023-06-18 10:35:36 2023-06-18 10:35:36 Outpatient [facility] [id number] Henry Contreras 2023-06-05 00:00:00 2023-06-05 00:00:00 Orders Only Doctor Unassigned, Ignacio [facility] 1.2840.114 350.1.13.10 4.2.7.2.686 [id number] [facility] 2023-06-04 16:00:39 2023-06-04 16:00:39 Outpatient [facility] [id number] Henry Contreras 2023-05-24 15:38:52 2023-05-24 15:38:52 Outpatient [facility] [id number] Henry Contreras 2023-05-22 00:00:00 2023-05-22 00:00:00 Letter (Out) Neurology [facility] 1.2.840.114 350.1.13.10 4.2.7.2.686 [id number] [facility] 2023-05-20 00:00:00 2023-05-20 00:00:00 Orders Only Doctor Unassigned, Ignacio [facility] 1.2.840.114 350.1.13.10 4.2.7.2.686 [id number] [facility] 2023-05-17 15:07:14 2023-05-17 15:07:[address] [facility] [id number] Henry Contreras 2023-03-02 12:27:43 2023-03-02 12:27:43 Outpatient [facility] [id number] Henry Contreras 2023-01-09 17:11:26 2023-01-09 17:11:26 Outpatient [facility] [id number] Henry Contreras 2022-11-04 14:04:00 2022-11-05 11:09:00 Emergency E JESS PAIGE [facility] [id number] [facility] 2022-09-24 12:33:00 2022-09-24 12:51:00 Emergency Gwendolyn, Heri [facility] 1.2.840.114 350.1.13.10 4.2.7.2.686 [id number] [facility] 2022-09-22 00:00:00 2022-09-22 00:00:00 Nurse Triage Madhavi Mcginnis [facility] 1.2.840.114 350.1.13.10 4.2.7.2.686 [id number] [facility] 2022-09-18 10:09:00 2022-09-19 14:28:00 Inpatient EM Marly Mendenhall [facility] OBSE [id number] [facility] 2022-09-16 22:50:00 2022-09-17 01:40:00 Emergency EM Asim Jack [facility] FABI [id number] [facility] 2022-09-14 14:52:00 2022-09-15 14:00:00 Inpatient EM Vladimir Forbes [facility] TELE [id number] [facility] 2022-09-13 09:34:00 2022-09-13 13:00:00 Emergency EM Brad Woodall [facility] FABI [id number] [facility] 2022-09-10 23:39:00 2022-09-11 11:28:00 [facility] [id number] [facility] 2022-09-10 18:57:00 2022-09-10 20:20:00 Emergency Lisa Morfin [facility] 1.2.840.114 350.1.13.10 4.2.7.2.686 [id number] [facility] 2022-09-10 18:57:00 2022-09-10 20:20:00 Emergency X YESI SANDRITA [facility] ERT [id number] [facility] 2022-09-09 20:45:00 2022-09-09 22:46:00 Emergency X SANDRITA KEY [facility] ERT [id number] [facility] 2022-09-09 20:45:00 2022-09-09 22:46:00 Emergency Sandrita [facility] 1.2.840.114 350.1.13.10 4.2.7.2.686 [id number] [facility] 2022-09-06 18:09:00 2022-09-07 00:51:00 Emergency X TAYO BOYD [facility] ERT [id number] [facility] 2022-09-06 18:09:00 2022-09-07 00:51:00 Emergency Tayo Boyd [facility] 1.2.840.114 350.1.13.10 4.2.7.2.686 [id number] [facility] 2022-08-21 14:11:33 2022-08-21 14:11:[address] [facility] [id number] Henry Etta Ben 2022-07-17 15:03:48 2022-07-17 15:03:[address] [facility] [id number] Henry F Ben 2021-10-02 15:56:00 2021-10-02 19:00:00 Emergency X FRANK JAVED [facility] ERT [id number] [facility] 2021-10-02 15:56:00 2021-10-02 19:00:00 Emergency Javed Frank [facility] 1.2.840.114 350.1.13.10 4.2.7.2.686 [id number] [facility] 2021-05-05 13:22:00 2021-05-05 14:48:00 Emergency X DEON NUNEZ [facility] ERT [id number] [facility] 2021-05-05 13:22:00 2021-05-05 14:48:00 Emergency Deon Nunez [facility] 1.2.840.114 350.1.13.10 4.2.7.2.686 [id number] [facility] 2021-05-05 00:00:00 2021-05-05 00:00:00 Orders Only Doctor Unassigned, Ignacio [facility] 1.2.840.114 350.1.13.10 4.2.7.2.686 [id number] [facility] 2019-12-15 17:11:56 2019-12-15 18:04:00 Emergency Kp Gilliland [facility] 1.2.840.114 350.1.13.10 4.2.7.2.686 [id number] 2019-12-15 17:11:56 2019-12-15 18:04:00 Emergency Kp Gilliland [facility] 1.2.840.114 350.1.13.10 4.2.7.2.686 [id number] [facility] 2019-12-15 17:11:56 2019-12-15 17:11:56 Emergency X Kp GILLILAND [facility] ERT [id number] [facility] 2019-10-25 18:31:31 2019-10-25 19:21:00 Emergency Favian, Kylahnithin [facility] 1.2.840.114 350.1.13.10 4.2.7.2.686 [id number] 2019-10-25 18:31:31 2019-10-25 19:21:00 Emergency Kristin Miller [facility] 1.2.840.114 350.1.13.10 4.2.7.2.686 [id number] [facility] 2019-10-25 18:31:31 2019-10-25 18:31:31 Emergency X KRISTIN MILLER [facility] ERT [id number] [facility] 2019-08-13 13:30:00 2019-08-13 14:36:00 Emergency Floridalma Evans [facility] 1.2.840.114 350.1.13.10 4.2.7.2.686 [id number] 2019-08-13 13:30:00 2019-08-13 14:36:00 Emergency Floridalma Evans [facility] 1.2.840.114 350.1.13.10 4.2.7.2.686 [id number] [facility] 2019-08-13 13:30:00 2019-08-13 14:36:00 Emergency X FLORIDALMA EVANS [facility] ERT [id number] [facility] 2019-07-22 13:42:11 2019-07-22 19:02:00 Emergency Unknown, Attending Lisa Morfin [facility] 1.2.840.114 350.1.13.10 4.2.7.2.686 [id number] 2019-07-22 13:42:11 2019-07-22 19:02:00 Emergency X LISA MORFIN [facility] ERT [id number] [facility] 2019-07-22 13:42:11 2019-07-22 19:02:00 Emergency Unknown, Attending Lisa Morfin [facility] 1.2.840.114 350.1.13.10 4.2.7.2.686 [id number] [facility] 2019-07-13 20:17:19 2019-07-13 21:48:00 Emergency X HENRY OWEN [facility] ERT [id number] [facility] 2019-07-13 20:17:19 2019-07-13 21:48:00 Emergency Henry Owen [facility] 1.2.840.114 350.1.13.10 4.2.7.2.686 [id number] [facility] 2019-07-10 14:26:03 2019-07-10 16:33:00 Emergency X DEBBIE PAYTON [facility] ERT [id number] [facility] 2019-07-10 14:26:03 2019-07-10 16:33:00 Emergency Debbie Payton [facility] 1.2.840.114 350.1.13.10 4.2.7.2.686 [id number] [facility] 2019-07-04 19:09:02 2019-07-04 22:51:00 Emergency X LISA MORFIN [facility] ERT [id number] [facility] 2019-06-30 10:33:08 2019-06-30 13:10:00 Emergency X DEON [facility] ERT [id number] [facility] 2019-05-25 11:58:19 2019-05-25 15:37:00 Emergency X DEON NUNEZ [facility] ERT [id number] [facility] 2019-04-09 22:29:37 2019-04-09 23:28:00 Emergency X EVANSFLORIDALMA [facility] ERT [id number] [facility] 2019-01-21 18:38:01 2019-01-21 19:59:00 Emergency Le Ramirez [facility] 1.2.840.114 350.1.13.10 4.2.7.2.686 [id number] 2019-01-21 18:38:01 2019-01-21 19:59:00 Emergency Le Ramirez [facility] 1.2.840.114 350.1.13.10 4.2.7.2.686 [id number] [facility] Results Test Description Test Time Test Comments Results Result Co mments Source Henry Daniel [id number] 04:20:00* Test Item Value Reference Range Interpretation Comme nts FT4 (test code = FT4) 1.05 ng/dL 0.78-2.19 T3 [id number] 04:20:00* Test Item Value Reference Range Interpretation Comme nts T3UP (test code = T3UP) 40.9 % 23.5-40.5 H Thyroxine (T4) free index in Serum or [id number] 04:19:00* Test Item Value Reference Range Interpretation Comme nts Thyroxine (T4) free index in Serum or Plasma (test code = 51059-1) 1.05 ng/dL 0.78-2.19 [facility])Thyroid hormone uptake (T-uptake) in Serum or P 2023-11-24 04:18:00* Test Item Value Reference Range Interpretation Comme nts Thyroid hormone uptake (T-up take) in Serum or Plasma (test code = 10308-7) 40.9 % 23.5-40.5 [facility])URINE DRUG [id number] 00:43:00* Test Item Value Reference Range Interpretation [...] abuse 5 panel - Urine by Screen [id number] 00:40:00 NegativeNegativeNegativeNegativeNegativeNegativeNegativeBa[facility])[id number] 00:33:00* Test Item Value Reference Range Interpretation [...] /HPF 0-2 Urinalysis panel - Urine by Oazv1378-35-52 00:33:00* Test Item Value Reference Range Interpretation Comme nts Ketones [Presence] in Urine (test code = 34565-1) 15 MG/DL NEG N pH of Urine (test code = 2756-5) 5.5 1 5.0-7.5 N Urobilinogen [Presence] in U rine (test code = 46689-2) 0.2 EU/DL 0.2-1.0 N Specific gravity of Urine (t est code = 2965-2) 1.013 1 1.0-1.025 N Leukocytes [Presence] in Uri ne sediment by Light microscopy (test code = 94397-7) 10 /HPF 0.0-5.0 H Erythrocytes [Presence] in U rine sediment by Light microscopy (test code = 62577-4) 2 /HPF 0.0-2.0 [facility])VITAMIN [id number] 22:47:00* Test Item Value Reference Range Interpretation Comme nts B12 (test code = B12) 880 pg/mL 239-931 [id number] 22:47:00* Test Item Value Reference Range Interpretation Comme nts FOLATE (test code = FOLATE) 8.9 ng/mL 2.76-20.0 THYROID STIMULATION [id number] 22:47:00* Test Item Value Reference Range Interpretation Comme nts TSH (test code = TSH) 6.62 UIU/ML 0.465-4.68 H Cobalamin (Vitamin B12) [Mass/volume] in Lzzeo8787-46-46 22:47:00* Test Item Value Reference Range Interpretation Comme nts Cobalamin (Vitamin B12) [Mass/volume] in Serum or Plasma (test code = 2132-9) 880 pg/mL 239.0-931.0 [facility])Folate [Mass/volume] in Serum or Bfniwn2353-08-89 22:47:00* Test Item Value Reference Range Interpretation Comme nts Folate [Mass/volume] in Seru m or Plasma (test code = 2284-8) 8.9 ng/mL 2.76-20.0 [facility])Thyrotropin in Serum or [id number] 22:47:00* Test Item Value Reference Range Interpretation Comme nts Thyrotropin in Serum or Plas ma (test code = 00414-6) 6.62 UIU/ML 0.465-4.68 [facility])ER SCREEN FOR HIV 1/ 22:46:00* Test Item Value Reference Range Interpretation Comme nts HIV 1/2 AB (test code = SCRN HIV) NEGATIVE NEGATIVE This test is us ed for SCREENING purposes only. All reactive results are prelimenary and confirmation results will follow. HIV 1+2 Ab [Units/volume] in Ceoty2405-48-27 22:45:[facility]HEPATITIS C ANTIBODY [id number] 22:28:00* Test Item Value Reference Range Interpretation Comme nts SCRN HCV (test code = SCRN HCV) NEGATIVE NEGATIVE Hepatitis C Anti body test is for screening purposes only. All reactives will be confirmed by additional testing. Hepatitis C virus Ab [Presence] in Ctyip5009-69-91 22:27:00Negative[facility] QUAL (KIT)2023-11-23 22:01:00* Test Item Value Reference Range Interpretation Comme [facility] HCGQUAL (test code = HCGQUAL) NEGATIVE NEGATIVE URINE: NEGATIVE = < 20 mIU/ML; POSITIVE= >/= 20 mIU/ML SERUM: NEGATIVE = < 10 mIU/ML; POSITIVE= >/= 10 mIU/ML SOURCE (test code = SOURCE) SERUM HCG INTERNAL POSITIVE CNTRL (test code = HCGIPC) PASS PASS HCG LOT # (test code = UHCGLOT) [id number] HCG EXPIRATION DATE (test code = UHCGEXP) Choriogonadotropin.beta subunit ( aoga1048-40-31 22:01:00* Test Item Value Reference Range Interpretation Comme [facility] Specimen source [Identifier] of Body fluid (test code = 62079-1) SERUM N Reagent Lot number (test cod e = 36480-2) 1 [facility])CT HEAD W/O [id number] 22:00:00 [facility] : 1975 Sex: F[address] [id number] IMAGING REPORTPatient Name: ROBERT, CONCEPTIONDate of Service: 53-82-6142Wcg: 48 Sex: F Order #: [id number] [facility] 1975 [facility] Number: [id number] Record Number: [id number] Hospital Number: [id number] Physician: LAWRENCE MEJIASOrdering Physician: LAWRENCE MEJIASPROCEDURE: CTHEAD [...] 21:59:03CT Head and Orbit - bilateral WO [id number] 21:59:03 ORDER 1400: CT HEAD W/O CONT (LOINC: 92066-7)ORDER DATE: November 24, 2023 12:50:00 AM [facility]CT ABDOMEN/PELVIS [id number] 21:54:00 [facility] : 1975 Sex: F[address] [id number] IMAGING REPORTPatient Name: ROBERT, CONCEPTIONDate of Service: 26-46-7972Rba: 48 Sex: F Order #: [id number] Room: ERSDOB: 1975 X-Ray Number: [id number] Record Number: [id number] Hospital Number: [id number] Physician: LAWRENCE MEJIASOrdering Physician: LAWRENCE MEJIASPROCEDURE: CT [...] YUNIOR MCKEON 2023-11-23 21:53:03 CT Abdomen and Unyphi1463-34-23 21:53:03ORDER 1500: CT ABDOMEN/PELVIS WITHOUT (LOINC: 99351-3)ORDER DATE: November 24, 2023 12:50:00 AM [facility]2024-06-01 21:31:00* Test Item Value [...] 70-99 Fasting glucos e normal <100 MG/DL- [employer] recommendation CALCIUM (test code = [...] of age is not validated by the continuous drier operator and may not represent the patients [...] should be used in the calculation". CREATINE [id number] 21:31:00* Test Item Value Reference Range Interpretation Comme nts CK (test code = CK) 115 U/L 30-135 BLOOD ALCOHOL (ETOH)2023-11-23 21:31:00* Test Item Value Reference Range Interpretation Comme nts ALCOHOL BLOOD LEVEL (test code = ALC BLD) <10 MG/DL 0-10 Results ar e to be used for medical purposes (treatment) only. Not intended for non medical purposes. Ethanol [Mass/volume] in Yyavt1011-43-85 21:30:00* Test Item Value Reference Range Interpretation Comme nts Ethanol [Mass/volume] in Blo od (test code = 5640-8) <10 0.0-10.0 [facility])Creatine kinase isoenzymes [interpretation] in 2023-11-23 21:30:00* Test Item Value Reference Range Interpretation Comme nts Creatine kinase isoenzymes [interpretation] in Serum or Plasma Narrative (test code = 66510-7) 115 U/L 30.0-135.0 [facility])Comprehensive metabolic 2000 panel - Serum [...] total [Moles/volume] in Blood (test code = 47095-0) 24 MMOL/L 22.0-30.0 N Urea nitrogen [Mass/volume] in Serum or Plasma (test code = 3094-0) 16 MG/DL 7.0-17.0 N Creatinine [Mass/volume] in Blood (test code = 04054-8) 0.6 MG/DL 0.7-1.2 L Glucose [Mass/volume] in Blood (test code = 2339-0) 80 MG/DL 70.0-99.0 N Calcium [Mass/volume] in Serum or Plasma (test code = 93860-5) 10.3 MG/DL 8.4-10.2 H Protein [Mass/volume] in Serum or Plasma (test code = 2885-2) 9.9 G/DL 6.3-8.2 H Albumin [Presence] in Serum or Plasma (test code = 82049-6) 4.7 G/DL 3.5-5.0 N Bilirubin direct and total panel [Mass/volume] - Serum or Plasma (test code = 93630-8) 0.8 MG/DL 0.2-1.3 N Aspartate aminotransferase [Enzymatic [...] 50 percent [- Reported] (test code = 34155-3) 113.0 mL/min/1.73m2 N Anion gap in Serum or Plasma (test code = 98151-3) 13 mmol/L 4.0-12.0 [id number] Test Item Value Reference Range Interpretation [...] 1.2-7.2 CBC W Auto Differential panel - [id number] 21:15:00* Test Item Value Reference Range Interpretation Comme nts Leukocytes other [Identifier ] in Blood by Automated count (test code = 91289-9) 4.5 K/UL 3.5-10.9 N Erythrocytes [#/volume] in B lood (test code = 47732-3) 4.91 M/UL 4.0-5.0 N Hemoglobin A/Hemoglobin.tota l in Blood (test code = 4546-8) 13.8 G/DL 11.5-15.5 N Hematocrit [Volume Fraction] of Blood (test code = 43525-5) 42.4 % 34.0-46.0 N Erythrocyte mean corpuscular volume [Entitic volume] (test code = 77452-4) 86.4 FL 80.0-98.0 N Erythrocyte mean corpuscular hemoglobin [Entitic mass] (test code = 15590-8) 28.1 PG 28.0-32.0 N Erythrocyte mean corpuscular hemoglobin concentration [Mass/volume] (test code = 21735-4) 32.5 G/DL 32.5-36.5 N Erythrocyte distribution wid th [Ratio] (test code = 07224-7) 14.9 % 11.5-14.5 H Platelets panel - Blood by Automated count (test code = 61671-3) 124 K/UL 150.0-450.0 L Platelet mean volume [Entiti c volume] in Blood by Automated count (test code = 19161-7) 10.0 FL 7.4-10.4 N Neutrophils.segmented/100 leukocytes in Blood (test code = 08169-5) 53.3 % 40.0-75.0 N Lymphocytes Variant/100 leuk ocytes in Blood (test code = 92728-2) 33.9 % 24.0-44.0 N Lymphocytes+Monocytes/100 leukocytes in Blood (test code = 4662-3) 10.0 % 0.0-13.0 N Eosinophils [#/volume] in Bl ood (test code = 02055-1) 2.2 % 0.0-4.0 N Basophils [#/volume] in Bloo d (test code = 25473-8) 0.4 % 0.0-2.0 N Immature granulocytes/100 leukocytes in Blood (test code = 82739-9) 0.2 % 0.0-1.0 N Nucleated erythrocytes [#/vo lume] in Blood (test code = 71937-8) 0 /100 WBC N Neutrophils [#/volume] in Bl ood (test code = 52860-2) 2.4 K/UL 1.2-7.2 N [facility] ([place])PAP TEST, THINPREP, [id number] 16:02:24* Test Item Value Reference Range Interpretation Comme nts SOURCE: (test code = 8001) Cervical/Endoce rvical SLIDES: (test code = 8011) 1 LMP: (test code = 8021) SEE NOTE POST MENOPAUSAL SPECIMEN ADEQUACY: (test code = 02788) (NOTE) Satisfactory for evaluation. Endocervical cells/transformation zone component present. INTERPRETATION: (test code = 46526) NILM/NO EPITH. ABNORMALITY;SEE BELOW --- - NEGATIVE FOR INTRAEPITHELIAL LESION OR MALIGNANCY (NILM) ---- TILE INSPECTOR : (test code = 8101) Jami Smalls LOCATION: (test code = 43679) (NOTE) Specimens proces sed and interpreted at [facility], [address] [place] [address], , CLIA: [id number] CPT: (test code = 8140) (NOTE) [address]8037 UNLESS OTH ERWISE INDICATED, COMPUTER AIDED AND TILE INSPECTOR SCREENING PERFORMED. The Pap test is a screening test with an inherent, but low probability of error. Your patient should be reminded to consult you immediately if she experiences any suspicious signs or symptoms, regardless of her Pap test result. An alternate report format containing images or consolidated prior Pap history is available as applicable. HPV HIGH RISK WITH GENOTYPE, [id number] 15:53:52* Test Item Value Reference Range Interpretation Comme nts HPV HIGH RISK INTERP (test code = 75844) NEGATIVE NEGATIVE HPV 16 (test code = 14659) NEGATIVE HPV 18 (test code = 77846) NEGATIVE HPV, HR, OTHER GENOTYPES (test code = 30773) NEGATIVE Testing methodol ogy is real-time PCR utilizing hydrolysis probes with the [employer] system. The test individually detects genotypes 16 and 18, as well as the other 12 high risk types (31,33,35,39,45,51,52,56 ,58,59,66,68). The expected result is negative. A negative result does not rule out the presence of HPV not included in the genotype set, a low level of infection or specimen sampling error. UNLESS OTHERWISE INDICATED, ALL TESTING PERFORMED AT [facility] [address] [place] [address] IT APPLICATION SUPPORT ANALYST: JATIN FELIPE M.D. [place] NUMBER [id number] [facility] [place]. [id number] HPV HIGH RISK WITH GENOTYPE, [id number] 00:00:00* Test Item Value Reference Range Interpretation Comme nts HPV HIGH RISK INTERP (test c ode = 53290) NEGATIVE HPV 16 (test code = 12816) NEGATIVE HPV 18 (test code = 17753) NEGATIVE HPV, HR, OTHER GENOTYPES (te st code = 26687) NEGATIVE PDFE (test code = PDFReport) PDF Henry Quiles AustinPAP TEST, THINPREP, [id number] 00:00:00* Test Item Value Reference Range Interpretation Comme nts SOURCE: (test code = 8001) Cervical/Endocervical SLIDES: (test code = 8011) 1 LMP: (test code = 8021) SEE NOTE SPECIMEN ADEQUACY: (test code = 91257) (NOTE) INTERPRETATION: (test code = 02301) NILM/NO EPITH. ABNORMALITY;SEE BELOW TILE INSPECTOR: (test code = 8101) Jami Smalls LOCATION: (test code = 33001) (NOTE) CPT: (test code = 8140) (NOTE) Henry Quiles AustinHPV HIGH RISK WITH GENOTYPE, [id number] 00:00:00* Test Item Value Reference Range Interpretation Comme nts HPV HIGH RISK INTERP (test c ode = 58554) NEGATIVE HPV 16 (test code = 61361) NEGATIVE HPV 18 (test code = 12852) NEGATIVE HPV, HR, OTHER GENOTYPES (te st code = 49714) NEGATIVE PDFE (test code = PDFReport) PDF Henry Quiles AustinPAP TEST, THINPREP, [id number] 00:00:00* Test Item Value Reference Range Interpretation Comme nts SOURCE: (test code = 8001) Cervical/Endocervical SLIDES: (test code = 8011) 1 LMP: (test code = 8021) SEE NOTE SPECIMEN ADEQUACY: (test code = 09141) (NOTE) INTERPRETATION: (test code = 06756) NILM/NO EPITH. ABNORMALITY;SEE BELOW TILE INSPECTOR: (test code = 8101) Jami Smalls LOCATION: (test code = 81231) (NOTE) CPT: (test code = 8140) (NOTE) Henry Quiles AustinHPV HIGH RISK WITH GENOTYPE, [id number] 00:00:00* Test Item Value Reference Range Interpretation Comme nts HPV HIGH RISK INTERP (test c ode = 46515) NEGATIVE HPV 16 (test code = 09324) NEGATIVE HPV 18 (test code = 42280) NEGATIVE HPV, HR, OTHER GENOTYPES (te st code = 17919) NEGATIVE PDFE (test code = PDFReport) PDF Henry Quiles AustinPAP TEST, THINPREP, [id number] 00:00:00* Test Item Value Reference Range Interpretation Comme nts SOURCE: (test code = 8001) Cervical/Endocervical SLIDES: (test code = 8011) 1 LMP: (test code = 8021) SEE NOTE SPECIMEN ADEQUACY: (test code = 49087) (NOTE) INTERPRETATION: (test code = 46962) NILM/NO EPITH. ABNORMALITY;SEE BELOW TILE INSPECTOR: (test code = 8101) Jami Smalls LOCATION: (test code = 91852) (NOTE) CPT: (test code = 8140) (NOTE) Henry Quiles AustinPAP TEST, THINPREP, IMAGED [ADDED]2023-10-10 00:00:00* Test Item Value Reference Range Interpretation Comme nts SOURCE: (test code = 8001) Unspecified SLIDES: (test code = 8011) 2 LMP: (test code = 8021) NOT GIVEN SPECIMEN ADEQUACY: (test code = 71806) (NOTE) INTERPRETATION: (test code = 05592) UNSATISFACTORY; SEE BELOW OTHER COMMENTS: (test code = 8081) (NOTE) TILE INSPECTOR: (test code = 8101) Jose Bustillos QC TECHNOLOGIST: (test code = 8111) RAUL Wilde(ASCP),IAC LOCATION: (test code = 47931) (NOTE) CPT: (test code = 8140) (NOTE) Henry F AustinHPV HIGH RISK IF ASC/LSIL, THINPREP [ADDED]2023-10-10 00:00:00* Test Item Value Reference Range Interpretation Comme nts HPV HIGH RISK IF ASC/LSIL, THINPREP (test code = 99025) CRITERIA NOT MET Henry F AustinPAP TEST, THINPREP, IMAGED [ADDED]2023-10-10 00:00:00* Test Item Value Reference Range Interpretation Comme nts SOURCE: (test code = 8001) Unspecified SLIDES: (test code = 8011) 2 LMP: (test code = 8021) NOT GIVEN SPECIMEN ADEQUACY: (test code = 09379) (NOTE) INTERPRETATION: (test code = 52572) UNSATISFACTORY; SEE BELOW OTHER COMMENTS: (test code = 8081) (NOTE) TILE INSPECTOR: (test code = 8101) Joes Bustillos QC TECHNOLOGIST: (test code = 8111) RAUL Wilde(ASCP),IAC LOCATION: (test code = 83335) (NOTE) CPT: (test code = 8140) (NOTE) Henry F AustinHPV HIGH RISK IF ASC/LSIL, THINPREP [ADDED]2023-10-10 00:00:00* Test Item Value Reference Range Interpretation Comme nts HPV HIGH RISK IF ASC/LSIL, THINPREP (test code = 09710) CRITERIA NOT MET Henry F AustinPAP TEST, THINPREP, IMAGED [ADDED]2023-10-10 00:00:00* Test Item Value Reference Range Interpretation Comme nts SOURCE: (test code = 8001) Unspecified SLIDES: (test code = 8011) 2 LMP: (test code = 8021) NOT GIVEN SPECIMEN ADEQUACY: (test code = 10850) (NOTE) INTERPRETATION: (test code = 50873) UNSATISFACTORY; SEE BELOW OTHER COMMENTS: (test code = 8081) (NOTE) TILE INSPECTOR: (test code = 8101) Jose Bustillos QC TECHNOLOGIST: (test code = 8111) Jason Whitman,[facility](ASCP),IAC LOCATION: (test code = 00737) (NOTE) CPT: (test code = 8140) (NOTE) Henry Quiles AustinHPV HIGH RISK IF ASC/LSIL, THINPREP [ADDED]2023-10-10 00:00:00* Test Item Value Reference Range Interpretation Comme nts HPV HIGH RISK IF ASC/LSIL, THINPREP (test code = 51480) CRITERIA NOT MET Henry Quiles AustinGONORRHEA, NAAT, THINPREP [ADDED]2023-10-08 00:00:00* Test Item Value Reference Range Interpretation Comme nts GONORRHEA, NAAT, THINPREP (t est code = 33922) NEGATIVE Henry Quiles AustinCHLAMYDIA, NAAT, THINPREP [ADDED]2023-10-08 00:00:00* Test Item Value Reference Range Interpretation Comme nts CHLAMYDIA, NAAT, THINPREP (t est code = 02219) NEGATIVE PDFE (test code = PDFReport) PDF Henry Quiles AustinGONORRHEA, NAAT, THINPREP [ADDED]2023-10-08 00:00:00* Test Item Value Reference Range Interpretation Comme nts GONORRHEA, NAAT, THINPREP (t est code = 68235) NEGATIVE Henry Quiles AustinCHLAMYDIA, NAAT, THINPREP [ADDED]2023-10-08 00:00:00* Test Item Value Reference Range Interpretation Comme nts CHLAMYDIA, NAAT, THINPREP (t est code = 24706) NEGATIVE PDFE (test code = PDFReport) PDF Henry Quiles AustinGONORRHEA, NAAT, THINPREP [ADDED]2023-10-08 00:00:00* Test Item Value Reference Range Interpretation Comme nts GONORRHEA, NAAT, THINPREP (t est code = 53341) NEGATIVE Henry SelfAMYDIA, NAAT, THINPREP [ADDED]2023-10-08 00:00:00* Test Item Value Reference Range Interpretation Comme shaina CHLAMYDIA, NAAT, THINPREP (t est code = 28947) NEGATIVE PDFE (test code = PDFReport) PDF Henry Griffin, THIRD [id number] 08:14:44* Test Item Value Reference Range Interpretation Comme nts TSH, THIRD GENERATION (test code = 2821) 5.200 UIU/ML 0.400-4.100 H UNLESS OTHERWISE INDICATED, ALL TESTING PERFORMED AT [facility] [address] [place] [address] IT APPLICATION SUPPORT ANALYST: JATIN FELIPE M.D. CLIA NUMBER [id number] [facility] [place]. [id number] 00:00:00* Test Item Value Reference Range Interpretation Comme nts TSH, THIRD GENERATION (test code = 2821) 5.200 UIU/ML Henry [id number] 00:00:00* Test Item Value Reference Range Interpretation Comme nts TSH, THIRD GENERATION (test code = 2821) 5.200 UIU/ML Henry [id number] 00:00:00* Test Item Value Reference Range Interpretation Comme nts TSH, THIRD GENERATION (test code = 2821) 5.200 UIU/ML Henry MonroyH, THIRD [id number] 23:53:27* Test Item Value Reference Range Interpretation Comme nts TSH, THIRD GENERATION (test code = 2821) 11.100 UIU/ML 0.400-4.100 H COMPREHENSIVE METABOLIC [id number] 23:46:03* Test Item Value Reference Range Interpretation Comme nts GLUCOSE (test code = 2217) 97 MG/DL 70-99 BUN (test code = 2208) 7 MG/DL 6-20 CREATININE (test code = 2214) 0.61 MG/DL 0.60-1.30 eGFR (2020 CKD-EPI) (test code = 61395) 110 ML/MIN/1.73 >60 CALC BUN/CREAT (test code [...] 13 U/L 5-40 CBC W/AUTO DIFF WITH [id number] 08:48:44* Test Item Value Reference Range Interpretation [...] 0.00-0.10 ABS NUCLEATED RBCS (test code = 18492) 0.00 K/UL 0.00-0.11 UNLESS OTHER MONTOYA INDICATED, ALL TESTING PERFORMED AT [facility] [address] [place] [address] IT APPLICATION SUPPORT ANALYST: JATIN FELIPE M.D. CLIA NUMBER [id number] [facility] [place]. [id number] 00:00:00* Test Item Value Reference Range Interpretation Comme nts TSH, THIRD GENERATION (test code = 2821) 11.100 UIU/ML [facility] [id number] 00:00:00* Test Item Value Reference Range Interpretation [...] ABS NUCLEATED RBCS (test cod e = 16452) 0.00 K/UL Henry F BenCOMPREHENSIVE METABOLIC [id number] 00:00:00* Test Item Value Reference Range Interpretation Comme nts GLUCOSE (test code = 2217) 97 MG/DL BUN (test code = 2208) 7 MG/DL CREATININE (test code = 2214) 0.61 MG/DL eGFR (2020 CKD-EPI) (test code = 29610) 110 ML/MIN/1.73 CALC BUN/CREAT (test code = [...] (test code = 2219) 13 U/L Henry F [id number] 00:00:00* Test Item Value Reference Range Interpretation Comme nts TSH, THIRD GENERATION (test code = 2821) 11.100 UIU/ML Henry ContrerasCBC W/AUTO [id number] 00:00:00* Test Item Value Reference Range Interpretation [...] ABS NUCLEATED RBCS (test cod e = 73029) 0.00 K/UL Henry ContrerasCOMPREHENSIVE METABOLIC [id number] 00:00:00* Test Item Value Reference Range Interpretation Comme nts GLUCOSE (test code = 2217) 97 MG/DL BUN (test code = 2208) 7 MG/DL CREATININE (test code = 2214) 0.61 MG/DL eGFR (2020 CKD-EPI) (test code = 36804) 110 ML/MIN/1.73 CALC BUN/CREAT (test code = [...] (test code = 2219) 13 U/L Henry [id number] 00:00:00* Test Item Value Reference Range Interpretation Comme nts TSH, THIRD GENERATION (test code = 2821) 11.100 UIU/ML Henry ContrerasCBC W/AUTO [id number] 00:00:00* Test Item Value Reference Range Interpretation [...] ABS NUCLEATED RBCS (test cod e = 78199) 0.00 K/UL Henry ContrerasCOMPREHENSIVE METABOLIC [id number] 00:00:00* Test Item Value Reference Range Interpretation Comme nts GLUCOSE (test code = 2217) 97 MG/DL BUN (test code = 2208) 7 MG/DL CREATININE (test code = 2214) 0.61 MG/DL eGFR (2020 CKD-EPI) (test code = 29632) 110 ML/MIN/1.73 CALC BUN/CREAT (test code = [...] (test code = 2219) 13 U/L Henry C[id number] 01:13:06* Test Item Value Reference Range Interpretation Comme nts TRANSFERRIN (test code = 4936) 315 MG/DL 200-360 UNLESS OTHERWISE INDICATED, ALL TESTING PERFORMED AT [facility] [address] [place] [address] IT APPLICATION SUPPORT ANALYST: JATIN FELIPE M.D. CLIA NUMBER [id number] [facility] [place] [place]. [id number] LIPID [id number] 01:12:48* Test Item Value Reference Range Interpretation [...] SPECIMENS. FOR MOREINFORMATION, SEE CLIENT ANNOUNCEMENT AT [email or web address] [email or web address] RATIO LDL/HDL (test code = 2238) 1.34 RATIO <3.22 COMPREHENSIVE METABOLIC [id number] 01:12:48* Test Item Value Reference Range Interpretation Comme nts GLUCOSE (test code = 7) 92 MG/DL 70-99 BUN (test code = 2207) 15 MG/DL 6-20 CREATININE (test code = 221) 0.65 MG/DL 0.60-1.30 eGFR (2020 CKD-EPI) (test code = 57799) 108 ML/MIN/1.73 >60 CALC BUN/CREAT (test code = 2235) 23 RATIO 6-28 SODIUM (test code = 223) 135 MEQ/L 133-146 POTASSIUM (test code = 2228) 4.2 MEQ/L 3.5-5.4 CHLORIDE (test code = 2215) 99 MEQ/L 95-107 CARBON DIOXIDE (test code = 2206) 24 MEQ/L 19-31 CALCIUM (test code = 2209) 9.8 MG/DL 8.5-10.5 PROTEIN, TOTAL (test code = 2229) 7.8 G/DL 6.1-8.3 ALBUMIN (test code = [...] IRON BINDING CAPACITY AND IRON AND % [id number] 01:12:48* Test Item Value Reference Range Interpretation Comme nts IRON, SERUM (test code = 2221) 51 UG/DL 37-145 UNSATURATED IBC (test code = ) 356 UG/DL 112-347 H CALC TOTAL IBC (test code = 2076) 407 UG/DL 250-450 CALC % IRON SAT (test code = 2078) 13 % 20-50 L [id number] 00:59:24* Test Item Value Reference Range Interpretation Comme nts FERRITIN (test code = 2074) 20 NG/ML 13-200 LIPID [id number] 00:00:00* Test Item Value Reference Range Interpretation Comme nts CHOLESTEROL (test code = 0) 191 MG/DL TRIGLYCERIDES (test code = 2) 89 MG/DL HDL CHOLESTEROL (test code = 2219) 74 MG/DL CALC LDL CHOL (test code = 7) 99 MG/DL RISK RATIO LDL/HDL (test cod e = 2238) 1.34 RATIO Henry ContrerasCOMPREHENSIVE METABOLIC [id number] 00:00:00* Test Item Value Reference Range Interpretation Comme nts GLUCOSE (test code = 7) 92 MG/DL BUN (test code = 2208) 15 MG/DL CREATININE (test code = 2214) 0.65 MG/DL eGFR (2020 CKD-EPI) (test code = 69268) 108 ML/MIN/1.73 CALC BUN/CREAT (test code = [...] ContrerasIRON BINDING CAPACITY AND IRON AND % [id number] 00:00:00* Test Item Value Reference Range Interpretation Comme shaina IRON, SERUM (test code = 2221) 51 UG/DL UNSATURATED IBC (test code = 00042) 356 UG/DL CALC TOTAL IBC (test code = 7) 407 UG/DL CALC % IRON SAT (test code = 2078) 13 % Henry [id number] 00:00:00* Test Item Value Reference Range Interpretation Comme nts FERRITIN (test code = 2074) 20 NG/ML Henry [id number] 00:00:00* Test Item Value Reference Range Interpretation Comme nts TRANSFERRIN (test code = 4936) 315 MG/DL Henry ContrerasLIPID [id number] 00:00:00* Test Item Value Reference Range Interpretation Comme nts CHOLESTEROL (test code = 2210) 191 MG/DL TRIGLYCERIDES (test code = 2232) 89 MG/DL HDL CHOLESTEROL (test code = 0) 74 MG/DL CALC LDL CHOL (test code = 2237) 99 MG/DL RISK RATIO LDL/HDL (test cod e = 2238) 1.34 RATIO Henry ContrerasCOMPREHENSIVE METABOLIC [id number] 00:00:00* Test Item Value Reference Range Interpretation Comme nts GLUCOSE (test code = 2217) 92 MG/DL BUN (test code = 2208) 15 MG/DL CREATININE (test code = 2214) 0.65 MG/DL eGFR (2020 CKD-EPI) (test code = 20178) 108 ML/MIN/1.73 CALC BUN/CREAT (test code = [...] ContrerasIRON BINDING CAPACITY AND IRON AND % [id number] 00:00:00* Test Item Value Reference Range Interpretation Comme nts IRON, SERUM (test code = 2221) 51 UG/DL UNSATURATED IBC (test code = 12098) 356 UG/DL CALC TOTAL IBC (test code = 2076) 407 UG/DL CALC % IRON SAT (test code = 2078) 13 % Henry [id number] 00:00:00* Test Item Value Reference Range Interpretation Comme nts FERRITIN (test code = 2074) 20 NG/ML Henry [id number] 00:00:00* Test Item Value Reference Range Interpretation Comme nts TRANSFERRIN (test code = 4936) 315 MG/DL Henry ContrerasLIPID [id number] 00:00:00* Test Item Value Reference Range Interpretation Comme nts CHOLESTEROL (test code = 2210) 191 MG/DL TRIGLYCERIDES (test code = 2232) 89 MG/DL HDL CHOLESTEROL (test code = 2220) 74 MG/DL CALC LDL CHOL (test code = 2237) 99 MG/DL RISK RATIO LDL/HDL (test cod e = 2238) 1.34 RATIO Henry ContrerasCOMPREHENSIVE METABOLIC [id number] 00:00:00* Test Item Value Reference Range Interpretation Comme nts GLUCOSE (test code = 2217) 92 MG/DL BUN (test code = 2208) 15 MG/DL CREATININE (test code = 2214) 0.65 MG/DL eGFR (2020 CKD-EPI) (test code = 33371) 108 ML/MIN/1.73 CALC BUN/CREAT (test code = [...] 3.9 G/DL CALC GLOBULIN (test code = 0) 3.9 G/DL CALC A/G RATIO (test code = 4) 1.0 RATIO BILIRUBIN, TOTAL (test code = 2206) <0.2 MG/DL ALKALINE PHOSPHATASE (test code = 2203) 73 U/L AST (test code = 8) 15 U/L ALT (test code = 2218) 7 U/L Henry ContrerasIRON BINDING CAPACITY AND IRON AND % [id number] 00:00:00* Test Item Value Reference Range Interpretation Comme nts IRON, SERUM (test code = 222) 51 UG/DL UNSATURATED IBC (test code = 22170) 356 UG/DL CALC TOTAL IBC (test code = 2076) 407 UG/DL CALC % IRON SAT (test code = 2078) 13 % Henry [id number] 00:00:00* Test Item Value Reference Range Interpretation Comme nts FERRITIN (test code = 2075) 20 NG/ML Henry C[id number] 00:00:00* Test Item Value Reference Range Interpretation Comme shaina TRANSFERRIN (test code = 4936) 315 MG/DL Henry ContrerasHEMOGLOBIN [id number] 03:08:40* Test Item Value Reference Range Interpretation Comme shaina HEMOGLOBIN A1c (test code = 89743) 5.5 % 4.2-5.6 CBC W/AUTO DIFF WITH [id number] 02:29:36* Test Item Value Reference Range Interpretation [...] 0.00-0.10 ABS NUCLEATED RBCS (test code = 92612) 0.00 K/UL 0.00-0.11 CBC W/AUTO [id number] 00:00:00* Test Item Value Reference Range Interpretation [...] ABS NUCLEATED RBCS (test cod e = 96131) 0.00 K/UL Henry ContrerasHEMOGLOBIN [id number] 00:00:00* Test Item Value Reference Range Interpretation Comme nts HEMOGLOBIN A1c (test code = 01971) 5.5 % Henry ContrerasCBC W/AUTO [id number] 00:00:00* Test Item Value Reference Range Interpretation [...] ABS NUCLEATED RBCS (test cod e = 83127) 0.00 K/UL Henry Quiles AustinHEMOGLOBIN [id number] 00:00:00* Test Item Value Reference Range Interpretation Comme nts HEMOGLOBIN A1c (test code = 32402) 5.5 % Henry ContrerasCBC W/AUTO [id number] 00:00:00* Test Item Value Reference Range Interpretation [...] ABS NUCLEATED RBCS (test cod e = 15597) 0.00 K/UL Henry Quiles AustinHEMOGLOBIN [id number] 00:00:00* Test Item Value Reference Range Interpretation Comme nts HEMOGLOBIN A1c (test code = 03475) 5.5 % Henry ContrerasDRUGS OF [id number] 05:03:00* Test Item Value Reference Range Interpretation [...] 200 ng/mL Opiates 300 ng/mL URINALYSIS WITH [id number] 04:56:00* Test Item Value Reference Range Interpretation [...] (test code = USPERM) /HPF NONE URINE [id number] 04:53:00* Test Item Value Reference Range Interpretation [...] the FDA and the [employer] (CAP) are more stringent than those required for this test. Therefore, the result should be interpreted with caution and close attention to other clinical and epidemiological data [id number] 16:00:00* Test Item Value Reference Range Interpretation Comme nts SALICYLATE (test code = 94B) <3.0 mg/dL 15.0-30.0 L LIVER [id number] 15:49:00* Test Item Value Reference Range Interpretation [...] code = 30A) 16 IU/L See_Comment [Automated [employer]] The system which generated this result transmitted reference range: <=33. The reference range was not used to interpret this result as normal/abnormal. ALT (test code = 31A) <7 IU/L 10-49 L [id number] 15:48:00* Test Item Value Reference Range Interpretation Comme nts ACETAMINPH (test code = 94M) <0.2 mg/dL 1.2-2.5 L ALCOHOL BLOOD (ETOH)2022-11-04 15:48:00* Test Item Value Reference Range Interpretation Comme nts ETOH (test code = HALC) ETHANOL The result is to be used only for medical purposes ALCOHOL (test code = 56A) <10 mg/dL See_Comment [[employer]ated [employer]] The system which generated this result transmitted reference range: <=10. The reference range was not used to interpret this result as normal/abnormal. 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 Old healed fractures of the distal tibia and fibular noted.Soft tissues: Unremarkable.IMPRESSION: No acute findings.Electronically signed by: Nikko Santiago MD 11/04/2022 3:10 PM CDT [id number] BEDSIDE [id number] 11:51:00* Test Item Value Reference Range Interpretation Comme nts GLUCOSE BEDSIDE TESTING (karen t code = GLUBED) 79 MG/DL 70-119 N GLUCOSE BEDSIDE [id number] 06:23:00* Test Item Value Reference Range Interpretation Comme nts GLUCOSE BEDSIDE TESTING (karen t code = GLUBED) 80 MG/DL 70-119 N BASIC METABOLIC [id number] 05:12:00* Test Item Value Reference Range Interpretation [...] 2.0 <2.0 indicates None DetectedPerformed At: [facility] [id number] [place], [place] [id number] Michael Reeves MD Ph:[phone] GLUCOSE BEDSIDE [id number] 19:51:00* Test Item Value Reference Range Interpretation Comme nts GLUCOSE BEDSIDE TESTING (karen t code = GLUBED) 129 MG/DL 70-119 H OSMOLALITY [id number] 17:56:00* Test Item Value Reference Range Interpretation Comme nts OSMOLALITY SERUM (test code = OSMO) 269 mOsm/kg 275-300 L THYROID STIMULATING [id number] 17:56:00* Test Item Value Reference Range Interpretation Comme nts THYROID STIMULATING HORMONE (test code = TSH) 4.190 mc IU/ML 0.340-4.820 N GLUCOSE BEDSIDE [id number] 15:49:00* Test Item Value Reference Range Interpretation [...] code = VALP) 37.5 mcG/ML 50.0-100.0 L [id number] 14:26:00* Test Item Value Reference Range Interpretation Comme nts AMMONIA (test code = AMM) 29.0 mcMOL/L 11.0-32.0 N GLUCOSE BEDSIDE [id number] 11:51:00* Test Item Value Reference Range Interpretation Comme nts GLUCOSE BEDSIDE TESTING (karen t code = GLUBED) 88 MG/DL 70-119 N GLYCOSYLATED HEMOGLOBIN (HA1C)2022-09-18 06:53:00* Test Item Value Reference Range Interpretation Comme nts GLYCOSYLATED HEMOGLOBIN (HA1 C) (test code = GLYHGB) 5.2 % IS-A1C 4.5-5.6 N ESTIMATED AVERAGE [id number] 06:53:00* Test Item Value Reference Range Interpretation [...] to interpret this result as normal/abnormal. UR KZXFDCMYXDWH2883-29-06 21:28:00* Test Item Value Reference Range Interpretation Comme nts UR SODIUM RANDOM (test code = JESUSITA) 93 mmol/L 40-200 N UR POTASSIUM RANDOM (test code = KU) 54.8 mmol/L 25-125 N NO ESTABLISHED NORMAL RANGES FOR RANDOM SPECIMENS. UR CHLORIDE RANDOM (test code = CLU) 164 mmol/L 110-150 H UR OSMOLALITY [id number] 21:28:00* Test Item Value Reference Range Interpretation Comme nts UR OSMOLALITY RANDOM (test c ode = OSMOU) 475 mOsm/kg 100-1400 N CBC W/O [id number] 20:05:00* Test Item Value Reference Range Interpretation [...] = MPV) 9.5 fL 6.8-11.2 N LACTIC [id number] 19:35:00* Test Item Value Reference Range Interpretation Comme nts LACTIC ACID (test code = LACT) 1.0 mmol/L 0.4-2.0 N HCG SERUM [id number] 19:31:00* Test Item Value Reference Range Interpretation Comme nts HCG SERUM QUAL (test code = HCGQL) Negative SCREEN NEG - CT HEAD/BRAIN W/O [id number] 18:59:00 [facility] : 1975 Sex: F Patient Name: BHUMIKA JONES Unit No: [id number] EXAMS: CPT CODE: [id number] CT HEAD/BRAIN W/O CONT 97380 Location: H3 CT head, conducted on 09/17/22 [...] Trnscrpt: 09/17/2022 (1858) NadiyaDAS6 DENIZ Lugo NAME: KADEN URBINA[address] PHYS: Valentina [place] [address] : 1975 AGE: 47 SEX: F LOC: MITCHELLED 20 PHONE #: [phone] EXAM DATE: 09/17/2022 STATUS: ADM IN FAX #: [phone] RAD #: D/C DT PAGE 1 Signed Report [facility]: [id number] EXAMS: CPT CODE: [id number] CT HEAD/BRAIN W/O CONT 91485 (Continued) Orig Print D/T: S: 09/17/2022 (190) DENIZ Lugo NAME: ROBERT[address] PHYS: Valentina Mattson [place] [address] : 1975 AGE: 47 SEX: F LOC: MITCHELLED 20 PHONE #: [phone] EXAM DATE: 09/17/2022 STATUS: ADM IN FAX #: [phone] RAD #: D/C DT PAGE 2 Signed ReportURINALYSIS [id number] 16:28:00* Test Item Value Reference Range Interpretation [...] >0 /UL NONE-SQepi DRUGS OF ABUSE SCREEN [id number] 16:28:00* Test Item Value Reference Range Interpretation [...] interpret this result as normal/abnormal. TROP-I HIGH OTGHFLZSMPE5973-59-71 16:26:00* Test Item Value Reference Range Interpretation [...] and URLs may vary bymethod. BASIC METABOLIC [id number] 16:25:00* Test Item Value Reference Range Interpretation [...] interpret this result as normal/abnormal. HEPATIC FUNCTION [id number] 16:25:00* Test Item Value Reference Range Interpretation [...] ode = CK) 92 Unit/L 26-192 N [id number] 16:25:00* Test Item Value Reference Range Interpretation Comme nts LIPASE (test code = LIP) 57 Unit/L 114-286 L - CT HEAD/BRAIN W/O [id number] 00:32:00 [facility] [place] [facility] BHUM[facility]A JONES : 1975 Sex: FPatient Name: BHUMIKA JONES Unit No: [id number] EXAMS: CPT CODE: [id number] CT HEAD/BRAIN W/OCONT 73452 EXAM: - CT HEAD/BRAIN W/O CONT LOCATION: [...] DLP: Trnscrpt: 09/17/2022(31) NadiyaMKW1 DENIZ Lugo NAME: SILAS JONES[address] PHYS: IGNACIO.02 - Asim Jack [place] [address] : 1975 AGE: 47 SEX: F LOC: GregorioERS PHONE #: [phone] EXAM DATE: 09/16/2022 STATUS: REG ER FAX #: [phone] RAD #: D/C DT PAGE 1 Signed Report Patient Name: BHUMIKA JONES Unit No: [id number] EXAMS: CPT CODE: [id number] CTHEAD/BRAIN W/O CONT 77499 (Continued) Orig Print D/T: S: 09/17/2022 (34) DENIZ Lugo NAME: ROBERT[address] PHYS: PATLUCHO.02 - [place]im [place] [address] : 1975 AGE: 47 SEX: F LOC: GregorioERS PHONE #: [phone] EXAM DATE: 09/16/2022 STATUS: REG ER FAX #: [phone] RAD #: D/C DT PAGE 2 Signed Report TROP-I HIGH [id number] 00:13:00* Test Item Value Reference Range Interpretation [...] and URLs may vary bymethod. COMPREHENSIVE METABOLIC [id number] 00:11:00* Test Item Value Reference Range Interpretation [...] interpret this result as normal/abnormal. CBC W/AUTO [id number] 23:59:00* Test Item Value Reference Range Interpretation [...] K/mm3 0.0-0.05 N - XR CHEST 1 [id number] 23:34:00 [facility] : 1975 Sex: FSterling: E St: PRE -- Patient Name: BHUMIKA JONES Unit No: [id number] EXAMS: CPT CODE: [id number] XR CHEST 1 V 77705 EXAMINATION: - XR CHEST 1 V CLINICAL [...] disease. at 2334 Reported and signed by: Fol Jansen MD CC: Dictated Date/Time: 09/16/2022 (233)Technologist: Muna Monet Transcribed Date/Time: 09/16/2022 (2334) By: [email or web address] Orig Print D/T: S: 09/16/2022 (6466) [facility] NAME: SILAS JONESPCION [address] [place] [address] Bl PHYS: IGNACIO.02 - Asim Jack MD, [place] [address] : 1975 AGE: 47 SEX: F LOC: B.ERS PHONE #: [phone] EXAM DATE: 09/16/2022 STATUS: PRE ER FAX #: [phone] RAD NO: DC Dt: PAGE 1 Signed ReportCARBAMAZEPINE (TEGRETOL) 2022-09-15 06:12:00* Test Item Value Reference Range Interpretation Comme nts CARBAMAZEPINE (TEGRETOL) (test code = CARB) 1.5 ug/mL 4.0-12.0 L In conjunction w ith other antiepileptic drugs Therapeutic 4.0 - 8.0 Toxicity 9.0 - 12.0 Carbamazepine alone Therapeutic 8.0 - 12.0 Detection Limit = 2.0 <2.0 indicates None DetectedPerformed At: [facility] [address] [place], [place] [id number] Michael Reeves MD Ph:[phone] VALPROIC ACID (DEPAKENE)2022-09-15 06:12:00* Test Item Value Reference Range Interpretation Comme nts VALPROIC ACID (DEPAKENE) (te st code = VALP) 80.6 mcG/ML 50.0-100.0 N COMPREHENSIVE METABOLIC [id number] 06:00:00* Test Item Value Reference Range Interpretation [...] interpret this result as normal/abnormal. CBC W/AUTO [id number] 05:37:00* Test Item Value Reference Range Interpretation [...] NRBC#) 0.00 K/mm3 0.0-0.05 N GLUCOSE BEDSIDE [id number] 20:03:00* Test Item Value Reference Range Interpretation Comme nts GLUCOSE BEDSIDE TESTING (karen t code = GLUBED) 117 MG/DL 70-119 N DRUGS OF ABUSE SCREEN [id number] 11:42:00* Test Item Value Reference Range Interpretation [...] result as normal/abnormal. - CT HEAD/BRAIN W/O [id number] 11:37:00 [facility] BH[facility] : 1975 Sex: F Patient Name: BHUMIKA JONES Unit No: [id number] EXAMS: CPT CODE: [id number] CT HEAD/BRAIN W/O CONT 18642 EXAMINATION: - CT HEAD/BRAIN W/O CONT COMPARISON: None HISTORY: Seizure LOCATION CODE: [id number]: CT of the Brain without contrast. Axial [...] ASUNCION CASTELLANO CTDI: DLP: Trnscrpt: 09/14/2022 (1137) [email or web address] DENIZ Lugo NAME: [facility] PHYS: Vladimir Menchaca MD [address] [place] [address] : 1975 AGE: 47 SEX: F [place] [address] LOC: NEHA 10 PHONE #: [phone] EXAM DATE: 09/14/2022 STATUS: ADM IN FAX #: [phone] RAD #: D/C DT PAGE 1 Signed Report Patient Name: BHUMIKA JONES Unit No: [id number] EXAMS: CPT CODE: [id number] CT HEAD/BRAIN W/O CONT 29195 (Continued) Orig Print D/T: S: 09/14/2022 (1140) DENIZ Lugo NAME: [facility] PHYS: Vladimir Menchaca MD [address] [place], [place] [address]VD : 1975 AGE: 47 SEX: RAFI BUTT [facility] LOC: NEHA 10 PHONE #: [phone] EXAM DATE: 09/14/2022 STATUS: ADM IN FAX #: [phone] RAD #: D/C DT PAGE 2 Signed [...] AVOIDED DUE TO POSSIBLE HEPARINCONTAMINATION HCG SERUM [id number] 06:51:00* Test Item Value Reference Range Interpretation [...] CK) 268 Unit/L 26-192 H CBC W/AUTO [id number] 03:43:00* Test Item Value Reference Range Interpretation [...] = NRBC#) 0.00 K/mm3 0.0-0.05 N URINALYSIS [id number] 03:41:00* Test Item Value Reference Range Interpretation [...] RARE /LPF NONE - XR CHEST 2 [id number] 02:06:00 [facility] BHUM[facility] : 1975 Sex: FFAX: Suleman Carvalho [phone] [place]: [address] St: REG Patient Name: BHUMIKA JONES Unit No: [id number] EXAMS: CPT CODE: [id number] XR CHEST 2 V 04353 EXAM: - XR CHEST 2 V HISTORY: Chest pain. COMPARISON: None available time of interpretation. FINDINGS: PA and lateral view of the chest is provided. Heart size and v ascularity are within normal limits. There is no [...] D/T: S: 09/14/2022 (020) DENIZ Lugo NAME: [address] PHYS: GISEL - Suleman Carvalho, [place] [address] : 1975 AGE: 47 SEX: F LOC: B.ERS PHONE #: [phone] EXAM DATE: 09/14/2022 STATUS: REG ER FAX #: [phone] RAD NO: DC Dt: PAGE 1 Signed ReportCOMPREHENSIVE METABOLIC [id number] 12:49:00* Test Item Value Reference Range Interpretation [...] used to interpret this result as normal/abnormal. [id number] 12:49:00* Test Item Value Reference Range Interpretation Comme nts MAGNESIUM (test code = MAG) 1.7 MG/DL 1.6-2.6 N CBC W/AUTO [id number] 12:36:00* Test Item Value Reference Range Interpretation [...] RARE /LPF NONE DRUGS OF ABUSE SCREEN [id number] 00:33:00* Test Item Value Reference Range Interpretation [...] 300 ng/mL UA RFLX MICR CULT IF [id number] 00:30:00* Test Item Value Reference Range Interpretation [...] culture: Suprapubic PainSpecimen Description: CLEAN CATCHBASIC METABOLIC [id number] 00:18:00* Test Item Value Reference Range Interpretation [...] 8.9 mg/dl 8.0-10.5 N HEPATIC FUNCTION PANEL [id number] 00:18:00* Test Item Value Reference Range Interpretation [...] ALKP) 113 Units/L 50.0-136.0 N HCG SERUM [id number] 00:18:00* Test Item Value Reference Range Interpretation Comme nts HCG SERUM QUAL (test code = HCGQL) NEGATIVE NEGATIVE [id number] 00:18:00* Test Item Value Reference Range Interpretation Comme nts ALCOHOL (test code = ALC) 0.00 gm/dL 0.00-0.00 N ETHYL ALCOHOL MIRELLA HARRELL - INTERPRETATION: 0.050 GM/DL - NOT INTOXICATED 0.100 GM/DL - INTOXICATED 0.350-0.450 GM/DL - SEVERELY INTOXICATED 0.550 GM/DL- FATAL INTOXICATION Coronavirus 2019 nCoV Uepvnrd3116-11-21 00:09:00* Test Item Value Reference Range Interpretation Comme nts Coronavirus 2019 nCoV Bedside (test code = YWAUE15CUMNL) Negative NEGATIVE Negative results should be treated as presumptive and ifinconsistent with clinical signs and symptoms, or necessaryfor patient management, should be tested with an alternativemolecular assay. Negative results do not preclude RQHP-LvY-3kujajgujb and should not be used as the sole basis forpatient management decisions. Negative results should beconsidered in the context of a patient's recent exposures,history, presence of clinical signs and symptoms consistentwith COVID-19. CBC W/AUTO [id number] 23:58:00* Test Item Value Reference Range Interpretation [...] X10 3uL 0.00-0.01 N COMP. METABOLIC PANEL (15547)2022-09-07 02:12:41* Test Item Value Reference Range Interpretation Comme nts NA (test code = 1714959716) 133 mmol/L 135-145 L K (test code = 7196228152) 4.4 mmol/L 3.5-5.0 CL (test code = 6614835025) 102 mmol/L 98-108 CO2 TOTAL (test code = 0322391194) 25 mmol/L 23-31 AGAP (test code = 0312088447) 6 2-16 BUN (test code = 3459850978) 22 mg/dL 7-23 GLUCOSE (test code = 4773676266) 97 mg/dL 70-110 CREATININE (test code = 1531877578) 0.40 mg/dL 0.50-1.04 L TOTAL BILI (test code = 9072546876) 0.3 mg/dL 0.1-1.1 CALCIUM (test code = 9138203603) 8.9 mg/dL 8.6-10.6 T PROTEIN (test code = 5000452607) 7.7 g/dL 6.3-8.2 ALBUMIN (test code = 7382474476) 4.0 g/dL 3.5-5.0 ALK PHOS (test code = 1182388626) 104 U/L 34-122 ALTv (test code = 1742-6) 15 U/L 5-35 AST(SGOT) (test code = 9527688895) 22 U/L 13-40 eGFR (test code = 8118201391) 170.4 mL/min/1.73m2 HANNAH (test code = HANNAH) [...] imaging tests). Lab Interpretation (test code = 74708-6) Abnormal [facility] WITH [id number] 02:01:20* Test Item Value Reference Range Interpretation Comme nts WBC (test code = 6690-2) 6.17 See_Comment [Automated [employer]] The system which generated this result transmitted [...] 32.9 g/dL 31.6-35.1 RDW-SD (test code = 72855-8) 48.1 fL 39.0-49.9 RDW-CV (test code = 788-0) 14.7 % 12.0-15.5 PLT (test code = 777-3) 272 See_Comment [Automated messa ge] The system which generated this result transmitted reference range: 166 - 358 10*3/?L. The reference range was not used to interpret this result as normal/abnormal. MPV (test code = 95526-5) 9.6 fL 9.5-12.9 NRBC/100 WBC (test code = 7351665968) 0.0 See_Comment [Automated [employer] ssage] The system which generated this result transmitted reference range: 0.0 - 10.0 /100 WBCs. The reference range was not used to interpret this result as normal/abnormal. NRBC x10^3 (test code = 2814314018) See_Comment [Automated messa ge] The system which generated this result transmitted reference range: 10*3/?L. The reference range was not used to interpret this result as normal/abnormal. GRAN MAT (NEUT) % (test code = 770-8) 42.2 % IMM GRAN % (test code = 3297727583) 0.20 % LYMPH % (test code = 736-9) 38.2 % MONO % (test code = 5905-5) 12.6 % EOS % (test code = 713-8) 5.8 % BASO % (test code = 706-2) 1.0 % GRAN MAT x10^3(ANC) (test code = 6491693529) 2.60 10*3/uL 1.88-7.09 IMM GRAN x10^3 (test code = 3400992843) 0.00-0.06 LYMPH x10^3 (test code = 731-0) 2.36 10*3/uL 1.32-3.29 MONO x10^3 (test code = 742-7) 0.78 10*3/uL 0.33-0.92 EOS x10^3 (test code = 711-2) 0.36 10*3/uL 0.03-0.39 BASO x10^3 (test code = 704-7) 0.06 10*3/uL 0.01-0.07 Lab Interpretation (test code = 17183-3) [facility]normal [facility] by RT-PCR (HIGH RISK) 2020-08-19 00:00:00* Test Item Value Reference Range Interpretation Comme nts SARS-CoV-2 INTERPRETATION (t est code = 68367) NEGATIVE SOURCE (test code = 50209) NOT SPECIFIED Henry F VkfsovVWLF-IyW-1 (COVID-19) by RT-PCR (HIGH RISK)2020-08-19 00:00:00* Test Item Value Reference Range Interpretation Comme nts SARS-CoV-2 INTERPRETATION (t est code = 37295) NEGATIVE SOURCE (test code = 52451) NOT SPECIFIED [facility] F IhxbhsOCQN-JhZ-3 (COVID-19) by RT-PCR (HIGH RISK)2020-08-19 00:00:00* Test Item Value Reference Range Interpretation Comme nts SARS-CoV-2 INTERPRETATION (t est code = 37490) NEGATIVE SOURCE (test code = 89569) NOT SPECIFIED [facility] F AustinHPV HIGH RISK WITH GENOTYPE, [id number] 00:00:00* Test Item Value Reference Range Interpretation Comme nts HPV HIGH RISK INTERP (test c ode = 38339) NEGATIVE HPV 16 (test code = 74588) NEGATIVE HPV 18 (test code = 39196) NEGATIVE HPV, HR, OTHER GENOTYPES (te st code = 72789) NEGATIVE Henry F AustinPAP TEST, THINPREP, [id number] 00:00:00* Test Item Value Reference Range Interpretation Comme nts SOURCE: (test code = 8001) Cervical/Endocervical SLIDES: (test code = 8011) 1 LMP: (test code = 8021) 06/2017 SPECIMEN ADEQUACY: (test code = 99799) (NOTE) INTERPRETATION: (test code = 20869) NILM/NO EPITH. ABNORMALITY;SEE BELOW TILE INSPECTOR: (test code = 8101) [place], [place](ASCP) IAC LOCATION: (test code = 42202) (NOTE) CPT: (test code = 8140) (NOTE) Henry F AustinHPV HIGH RISK WITH GENOTYPE, [id number] 00:00:00* Test Item Value Reference Range Interpretation Comme nts HPV HIGH RISK INTERP (test c ode = 66851) NEGATIVE HPV 16 (test code = 05813) NEGATIVE HPV 18 (test code = 77502) NEGATIVE HPV, HR, OTHER GENOTYPES (te st code = 45356) NEGATIVE Henry Quiles AustinPAP TEST, THINPREP, [id number] 00:00:00* Test Item Value Reference Range Interpretation Comme nts SOURCE: (test code = 8001) Cervical/Endocervical SLIDES: (test code = 8011) 1 LMP: (test code = 8021) 06/2017 SPECIMEN ADEQUACY: (test code = 25534) (NOTE) INTERPRETATION: (test code = 53744) NILM/NO EPITH. ABNORMALITY;SEE BELOW TILE INSPECTOR: (test code = 8101) [place], [place](ASCP) IAC LOCATION: (test code = 93796) (NOTE) CPT: (test code = 8140) (NOTE) Henry F AustinHPV HIGH RISK WITH GENOTYPE, [id number] 00:00:00* Test Item Value Reference Range Interpretation Comme nts HPV HIGH RISK INTERP (test c ode = 31042) NEGATIVE HPV 16 (test code = 30137) NEGATIVE HPV 18 (test code = 22190) NEGATIVE HPV, HR, OTHER GENOTYPES (te st code = 19983) NEGATIVE Henry F AustinPAP TEST, THINPREP, [id number] 00:00:00* Test Item Value Reference Range Interpretation Comme nts SOURCE: (test code = 8001) Cervical/Endocervical SLIDES: (test code = 8011) 1 LMP: (test code = 8021) 06/2017 SPECIMEN ADEQUACY: (test code = 34057) (NOTE) INTERPRETATION: (test code = 50151) NILM/NO EPITH. ABNORMALITY;SEE BELOW TILE INSPECTOR: (test code = 8101) Rita Wen,CT(ASCP) IAC LOCATION: (test code = 86242) (NOTE) CPT: (test code = 8140) (NOTE) Henry Quiles AustinCT HEAD WO [id number] 22:34:12Impression: 1. ?No acute intracranial process. 2. [...] the patient. Please correlate with history and physicalexamination.[facility] CenterXR CERVICAL SPINE 2 OF5169-07-23 22:29:40No acute osseous abnormality. Preliminary Report Dictated [...] reviewed this study and agree with theabove report.[facility] CenterCBC WITH YSTHBIEZEAMA3644-29-45 21:46:00* Test Item Value Reference Range Interpretation Comme nts WBC (test code = 6690-2) See_Comment [Automated [employer] ge] The system which generated this result transmitted reference range: 4.30 - 11.10 10*3/?L. The reference range was not used to interpret this result as normal/abnormal. RBC (test code = 789-8) See_Comment L [Automated [employer] ge] The system which generated this result [...] 32.2 g/dL 31.6-35.1 RDW-SD (test code = 02324-6) 45.1 fL 39-49.9 RDW-CV (test code = 788-0) 14.6 % 12-15.5 PLT (test code = 777-3) See_Comment L [Automated messa ge] The system which generated this result transmitted reference range: 166 - 358 10*3/?L. The reference range was not used to interpret this result as normal/abnormal. MPV (test code = 37004-3) 9.0 fL 9.5-12.9 L NRBC/100 WBC (test code = 6273668038) See_Comment [Automated me ssage] The system which generated this result transmitted reference range: 0.0 - 10.0 /100 WBCs. The reference range was not used to interpret this result as normal/abnormal. NRBC x10^3 (test code = 9313961997) <0.01 See_Comment [Automated messa ge] The system which generated this result transmitted reference range: 10*3/?L. The reference range was not used to interpret this result as normal/abnormal. GRAN MAT (NEUT) % (test code = 770-8) 51.3 % IMM GRAN % (test code = 7737492147) 0.40 % LYMPH % (test code = 736-9) 24.4 % MONO % (test code = 5905-5) 23.1 % EOS % (test code = 713-8) 0.4 % BASO % (test code = 706-2) 0.4 % GRAN MAT x10^3(ANC) (test code = 5601897133) 2.48 10*3/uL 1.88-7.09 IMM GRAN x10^3 (test code = 6389020728) <0.03 0-0.06 LYMPH x10^3 (test code = 731-0) 1.18 10*3/uL 1.32-3.29 L MONO x10^3 (test code = 742-7) 1.12 10*3/uL 0.33-0.92 H EOS x10^3 (test code = 711-2) <0.03 0.03-0.39 L BASO x10^3 (test code = 704-7) <0.03 0.01-0.07 Lab Interpretation (test code = 70942-3) Abnormal [facility] CERV[facility] SP[facility] 2 [id number] 03:28:03No acute osseous abnormality. Preliminary Report Dictated [...] this study and agree withthe above report. [facility] CenterValproic Acid Kipfq1146-94-17 08:03:22* Test Item Value Reference Range Interpretation Comme nts Valproic Acid Level (test co de = Valproic Acid Level) 57.6 ug/mL(g) 50.0-100.0 Hemoglobin [id number] 09:36:00* Test Item Value Reference Range Interpretation Comme nts Hemoglobin A1c (test code = Hemoglobin A1c) 5.0 % 4.8-5.9 Non Diabetic 4.8-5.9%Diabetic <7.0% CT Shoulder w/o Contrast Qvmw0338-58-41 16:49:13Patient: BHUMIKA JONES Date/Time01/09/2019 16:14 CDTReason for [...] Adam FSigned (Electronic Signature): 01/09/2019 4:49 pmRPR Pcszcvxjytc3707-71-18 21:33:20* Test Item Value Reference Range Interpretation [...] 04-23-2020 N XR Shoulder Complete 2+ Views Qfpr0412-10-80 15:41:25Patient: BHUMIKA JONES Date/Time01/07/2019 15:25 CDTReason for [...] CSigned (Electronic Signature): 01/07/2019 3:41 pmThyroid Stimulating Fsebgwf8762-27-08 03:07:04* Test Item Value Reference Range Interpretation Comme nts TSH (test code = TSH) 9.650 mIU/mL 0.270-4.200 H Lipid Tlpky7770-10-50 03:07:03* Test Item Value Reference Range Interpretation Comme nts Cholesterol Total (test code = Cholesterol Total) 199 mg/dL 0-200 RISK OF HEART DISEASEPublished by [employer] [employer] Analyte Optimal Borderline [...] is LDL/HDL Ratio=LDL Calc/HDL Chol HCG Qualitative Fhpsy8141-21-52 02:33:13* Test Item Value Reference Range Interpretation Comme nts HCG, Serum Qual (test code = HCG, Serum Qual) Negative Lot # (test code = Lot #) [id number] N Expiration Dt (test code = Expiration Dt) 2020-04-23 N Neg Control (test code = Neg Control) Negative Pos Control (test code = Pos Control) Positive Internal QC (test code = Int ernal QC) Acceptable Drugs of Abuse Urine 83319-00-30 18:58:11* Test Item Value Reference Range Interpretation [...] = Cannabinoid Screen Ur) Negative Negative Alcohol Bivtn3285-47-07 18:47:34* Test Item Value Reference Range Interpretation Comme nts Ethanol Level (test code = Ethanol Level) <0.00 g/dL 0.00-0.01 Intoxicated 0.08 0 g/dL or more Ethanol Inst (test code = Ethanol Inst) <0 N Comprehensive Metabolic Pzira5995-05-32 18:47:33* Test Item Value Reference Range Interpretation [...] A/G Ratio) 1.0 ratio N Comprehensive Metabolic Xnyke0372-06-44 18:47:33* Test Item Value Reference Range Interpretation [...] the National Kidney Foundation, http://nkdep.nih.gov Comprehensive Metabolic Bjufm2921-53-25 18:47:33* Test Item Value Reference Range Interpretation [...] Kidney Foundation, http://nkdep.nih.gov Complete Blood Count with Frzwuuildqjx8857-47-82 18:15:23* Test Item Value Reference Range Interpretation [...] code = IPF) 0 % N Automated Ojplgwkocygc8827-77-85 18:15:23* Test Item Value Reference Range Interpretation Comme nts Neutro Auto (test code = Sunny tro Auto) 42.1 % 36.0-70.0 Lymph Auto (test code = Lymph Auto) 40.0 % 12.0-44.0 Emanuel Auto (test code = Emanuel Auto) 12.2 % 0.0-11.0 H Eos, Auto (test code = Eos, Auto) 4.9 % 0.0-7.0 Basophil Auto (test code = B asophil Auto) 0.6 % 0.0-2.0 Neutro Absolute (test code = Neutro Absolute) 2.2 x10 1.6-7.4 Lymph Absolute (test code = Lymph Absolute) 2.06 x10 .50-4.60 Emanuel Absolute (test code = M richa Absolute) .63 x10 .00-1.20 Eos Absolute (test code = Eo s Absolute) 0.25 x10 0.00-0.74 Baso Absolute (test code = B aso Absolute) 0.03 x10 0.00-0.21 IG [id number] 18:15:23* Test Item Value Reference Range Interpretation Comme nts IG (test code = IG) 0.2 % 0.0-5.0 IG Abs (test code = IG Abs) 0 x10 N VALPROIC [id number] 00:00:00* Test Item Value Reference Range Interpretation Comme nts VALPROIC ACID (test code = 3025) 69.8 UG/ML Henry Quiles [place] [id number] 00:00:00* Test Item Value Reference Range Interpretation Comme nts VALPROIC ACID (test code = 3025) 69.8 UG/ML Henry Quiles [place] [id number] 00:00:00* Test Item Value Reference Range Interpretation Comme nts VALPROIC ACID (test code = 3025) 69.8 UG/ML Henry Quiles [place]INE CULTURE, NO [id number] 00:00:00* Test Item Value Reference Range Interpretation Comme nts URINE CULTURE, NO SENS (test code = 09112) SPECIMEN NUMBER: [id number] Henry Quiles [place] CULTURE, NO [id number] 00:00:00* Test Item Value Reference Range Interpretation Comme nts URINE CULTURE, NO SENS (test code = 72596) SPECIMEN NUMBER: [id number] Henry Quiles [place] CULTURE, NO [id number] 00:00:00* Test Item Value Reference Range Interpretation Comme nts URINE CULTURE, NO SENS (test code = 41445) SPECIMEN NUMBER: [id number] Henry Quiles AustinIRON BINDING CAPACITY AND IRON AND % [id number] 00:00:00* Test Item Value Reference Range Interpretation Comme nts IRON, SERUM (test code = 2222) 42 UG/DL UNSATURATED IBC (test code = 88249) 279 UG/DL CALC TOTAL IBC (test code = 2077) 321 UG/DL CALC % IRON SAT (test code = 2079) 13 % Henry F [id number] 00:00:00* Test Item Value Reference Range Interpretation Comme nts FERRITIN (test code = 2075) 15 NG/ML Henry Quiles [id number] 00:00:00* Test Item Value Reference Range Interpretation Comme nts TRANSFERRIN (test code = 4936) 269 MG/DL Henry Quiles AustinFOLIC [id number] 00:00:00* Test Item Value Reference Range Interpretation Comme nts FOLIC ACID (test code = 2695) 5.4 UG/L Henry Quiles AustinIRON BINDING CAPACITY AND IRON AND % [id number] 00:00:00* Test Item Value Reference Range Interpretation Comme nts IRON, SERUM (test code = 2222) 42 UG/DL UNSATURATED IBC (test code = 48932) 279 UG/DL CALC TOTAL IBC (test code = 7) 321 UG/DL CALC % IRON SAT (test code = 9) 13 % Henry Quiles [id number] 00:00:00* Test Item Value Reference Range Interpretation Comme nts FERRITIN (test code = 5) 15 NG/ML Henry F [id number] 00:00:00* Test Item Value Reference Range Interpretation Comme nts TRANSFERRIN (test code = 4936) 269 MG/DL Henry F AustinFOLIC [id number] 00:00:00* Test Item Value Reference Range Interpretation Comme nts FOLIC ACID (test code = 2695) 5.4 UG/L Henry F AustinIRON BINDING CAPACITY AND IRON AND % [id number] 00:00:00* Test Item Value Reference Range Interpretation Comme nts IRON, SERUM (test code = 2222) 42 UG/DL UNSATURATED IBC (test code = 53414) 279 UG/DL CALC TOTAL IBC (test code = 7) 321 UG/DL CALC % IRON SAT (test code = 9) 13 % Henry F [id number] 00:00:00* Test Item Value Reference Range Interpretation Comme nts FERRITIN (test code = 5) 15 NG/ML Henry F [id number] 00:00:00* Test Item Value Reference Range Interpretation Comme nts TRANSFERRIN (test code = 4936) 269 MG/DL Henry F AustinFOLIC [id number] 00:00:00* Test Item Value Reference Range Interpretation Comme nts FOLIC ACID (test code = 2695) 5.4 UG/L Henry F AustinCULTURE, URINE [ADDED]2018-06-12 00:00:00* Test Item Value Reference Range Interpretation Comme nts CULTURE, URINE (test code = 45277) SPECIMEN NUMBER: [id number] Henry Quiles AustinCULTURE, URINE [ADDED]2018-06-12 00:00:00* Test Item Value Reference Range Interpretation Comme nts CULTURE, URINE (test code = 63334) SPECIMEN NUMBER: [id number] Henry ContrerasCULTURE, URINE [ADDED]2018-06-12 00:00:00* Test Item Value Reference Range Interpretation Comme nts CULTURE, URINE (test code = 50737) SPECIMEN NUMBER: [id number] Henry ContrerasCBC W/AUTO [id number] 00:00:00* Test Item Value Reference Range Interpretation [...] = 1015) 184 K/UL Henry ContrerasCOMPREHENSIVE METABOLIC [id number] 00:00:00* Test Item Value Reference Range Interpretation Comme nts GLUCOSE (test code = 2217) 86 MG/DL BUN (test code = 2208) 16 MG/DL CREATININE (test code = 2214) 0.45 MG/DL eGFR AMER. (test cod e = 05988) 141 ML/MIN/1.73 eGFR NON- AMER. (test code = 75400) 122 ML/MIN/1.73 CALC BUN/CREAT (test code = [...] code = 2219) 17 U/L Henry ContrerasVALPROIC [id number] 00:00:00* Test Item Value Reference Range Interpretation Comme nts VALPROIC ACID (test code = 3025) 100.9 UG/ML Henry ContrerasCBC W/AUTO [id number] 00:00:00* Test Item Value Reference Range Interpretation [...] = 1015) 184 K/UL Henry ContrerasCOMPREHENSIVE METABOLIC [id number] 00:00:00* Test Item Value Reference Range Interpretation Comme nts GLUCOSE (test code = 2217) 86 MG/DL BUN (test code = 2208) 16 MG/DL CREATININE (test code = 2214) 0.45 MG/DL eGFR AMER. (test cod e = 83884) 141 ML/MIN/1.73 eGFR NON- AMER. (test code = 32822) 122 ML/MIN/1.73 CALC BUN/CREAT (test code = [...] = 2219) 17 U/L Henry Quiles BenVALPROIC [id number] 00:00:00* Test Item Value Reference Range Interpretation Comme nts VALPROIC ACID (test code = 3025) 100.9 UG/ML Henry Quiles BenCBC W/AUTO [id number] 00:00:00* Test Item Value Reference Range Interpretation [...] 1015) 184 K/UL Henry Quiles BenCOMPREHENSIVE METABOLIC [id number] 00:00:00* Test Item Value Reference Range Interpretation Comme nts GLUCOSE (test code = 2217) 86 MG/DL BUN (test code = 2208) 16 MG/DL CREATININE (test code = 2214) 0.45 MG/DL eGFR AMER. (test cod e = 24833) 141 ML/MIN/1.73 eGFR NON- AMER. (test code = 29754) 122 ML/MIN/1.73 CALC BUN/CREAT (test code = [...] code = 221) 17 U/L Henry ContrerasVALPROIC [id number] 00:00:00* Test Item Value Reference Range Interpretation Comme nts VALPROIC ACID (test code = 3025) 100.9 UG/ML Henry Quiles BenPAP TEST, THINPREP, [id number] 00:00:00* Test Item Value Reference Range Interpretation Comme nts SOURCE: (test code = 8001) Cervical/Endocervical SLIDES: (test code = 8011) 1 LMP: (test code = 8021) 03/2017 SPECIMEN ADEQUACY: (test code = 22815) (NOTE) INTERPRETATION: (test code = 27116) NO EPITHELIAL ABNORMALITY SEE BELOW TILE INSPECTOR: (test code = 8101) KANA Merida(ASCP)IAC LOCATION: (test code = 12727) (NOTE) CPT: (test code = 8140) (NOTE) Henry Etta BenHPV HIGH RISK WITH GENOTYPE, [id number] 00:00:00* Test Item Value Reference Range Interpretation Comme nts HPV HIGH RISK INTERP (test c ode = 12477) NEGATIVE HPV 16 (test code = 50440) NEGATIVE HPV 18 (test code = 12002) NEGATIVE HPV, HR, OTHER GENOTYPES (te st code = 62506) NEGATIVE Henry Etta BenPAP TEST, THINPREP, [id number] 00:00:00* Test Item Value Reference Range Interpretation Comme nts SOURCE: (test code = 8001) Cervical/Endocervical SLIDES: (test code = 8011) 1 LMP: (test code = 8021) 03/2017 SPECIMEN ADEQUACY: (test code = 53595) (NOTE) INTERPRETATION: (test code = 60038) NO EPITHELIAL ABNORMALITY SEE BELOW TILE INSPECTOR: (test code = 8101) KANA Merida(ASCP)IAC LOCATION: (test code = 84800) (NOTE) CPT: (test code = 8140) (NOTE) Henry Quiles AustinHPV HIGH RISK WITH GENOTYPE, [id number] 00:00:00* Test Item Value Reference Range Interpretation Comme nts HPV HIGH RISK INTERP (test c ode = 84434) NEGATIVE HPV 16 (test code = 66707) NEGATIVE HPV 18 (test code = 33115) NEGATIVE HPV, HR, OTHER GENOTYPES (te st code = 79507) NEGATIVE Henry ContrerasPAP TEST, THINPREP, [id number] 00:00:00* Test Item Value Reference Range Interpretation Comme nts SOURCE: (test code = 8001) Cervical/Endocervical SLIDES: (test code = 8011) 1 LMP: (test code = 8021) 03/2017 SPECIMEN ADEQUACY: (test code = 38077) (NOTE) INTERPRETATION: (test code = 10552) NO EPITHELIAL ABNORMALITY SEE BELOW TILE INSPECTOR: (test code = 8101) KANA Merida(ASCP)IAC LOCATION: (test code = 20977) (NOTE) CPT: (test code = 8140) (NOTE) Henry ContrerasHPV HIGH RISK WITH GENOTYPE, [id number] 00:00:00* Test Item Value Reference Range Interpretation Comme nts HPV HIGH RISK INTERP (test c ode = 62522) NEGATIVE HPV 16 (test code = 29169) NEGATIVE HPV 18 (test code = 54188) NEGATIVE HPV, HR, OTHER GENOTYPES (te st code = 10884) NEGATIVE Henry ContrerasHIV AB/AG COMBO RFLX [id number] 00:00:00* Test Item Value Reference Range Interpretation Comme nts HIV 1/2 4TH GEN, RFLX CONF ( test code = 3514) NON-REACTIVE Henry ContrerasGC AND CHLAMYDIA AMPLIFIED, [id number] 00:00:00* Test Item Value Reference Range Interpretation Comme nts GONORRHEA, TMA (test code = 98644) NEGATIVE CHLAMYDIA, TMA (test code = 50982) NEGATIVE Henry Quiles AustinGC AND CHLAMYDIA AMPLIFIED, [id number] 00:00:00* Test Item Value Reference Range Interpretation Comme nts GONORRHEA, TMA (test code = 46689) NEGATIVE CHLAMYDIA, TMA (test code = 17342) NEGATIVE Henry Quiles AustinHIV AB/AG COMBO RFLX [id number] 00:00:00* Test Item Value Reference Range Interpretation Comme nts HIV 1/2 4TH GEN, RFLX CONF ( test code = 3514) NON-REACTIVE Henry ContrerasGC AND CHLAMYDIA AMPLIFIED, [id number] 00:00:00* Test Item Value Reference Range Interpretation Comme nts GONORRHEA, TMA (test code = 72211) NEGATIVE CHLAMYDIA, TMA (test code = 44280) NEGATIVE Henry Quiles AustinHIV AB/AG COMBO RFLX [id number] 00:00:00* Test Item Value Reference Range Interpretation Comme nts HIV 1/2 4TH GEN, RFLX CONF ( test code = 3514) NON-REACTIVE Henry Quiles AustinLIPID [id number] 00:00:00* Test Item Value Reference Range Interpretation Comme nts CHOLESTEROL (test code = 2210) 186 MG/DL TRIGLYCERIDES (test code = 2232) 131 MG/DL HDL CHOLESTEROL (test code = 2220) 67 MG/DL CALC LDL CHOL (test code = 2237) 93 MG/DL RISK RATIO LDL/HDL (test cod e = 2238) 1.39 RATIO Henry Quiles AustinCBC W/AUTO [id number] 00:00:00* Test Item Value Reference Range Interpretation [...] code = 1015) 152 K/UL Henry ContrerasHEMOGLOBIN [id number] 00:00:00* Test Item Value Reference Range Interpretation Comme nts HEMOGLOBIN A1c (test code = 09621) 5.2 % Henry Quiles [id number] 00:00:00* Test Item Value Reference Range Interpretation Comme nts TSH (test code = 2821) 2.020 UIU/ML Henry ContrerasCOMPREHENSIVE METABOLIC [id number] 00:00:00* Test Item Value Reference Range Interpretation Comme nts GLUCOSE (test code = 2217) 90 MG/DL BUN (test code = 2208) 21 MG/DL CREATININE (test code = 2214) 0.42 MG/DL eGFR AMER. (test cod e = 24878) 145 ML/MIN/1.73 eGFR NON- AMER. (test code = 57807) 126 ML/MIN/1.73 CALC BUN/CREAT (test code = [...] code = 2219) <5 U/L Henry ContrerasLIPID [id number] 00:00:00* Test Item Value Reference Range Interpretation Comme nts CHOLESTEROL (test code = 2210) 186 MG/DL TRIGLYCERIDES (test code = 2232) 131 MG/DL HDL CHOLESTEROL (test code = 2220) 67 MG/DL CALC LDL CHOL (test code = 2237) 93 MG/DL RISK RATIO LDL/HDL (test cod e = 2238) 1.39 RATIO Henry ContrerasCBC W/AUTO [id number] 00:00:00* Test Item Value Reference Range Interpretation [...] code = 1015) 152 K/UL Henry ContrerasHEMOGLOBIN [id number] 00:00:00* Test Item Value Reference Range Interpretation Comme shaina HEMOGLOBIN A1c (test code = 65748) 5.2 % Henry [id number] 00:00:00* Test Item Value Reference Range Interpretation Comme shaina TSH (test code = 2821) 2.020 UIU/ML Henry ContrerasCOMPREHENSIVE METABOLIC [id number] 00:00:00* Test Item Value Reference Range Interpretation Comme nts GLUCOSE (test code = 2217) 90 MG/DL BUN (test code = 2208) 21 MG/DL CREATININE (test code = 2214) 0.42 MG/DL eGFR AMER. (test cod e = 38354) 145 ML/MIN/1.73 eGFR NON- AMER. (test code = 30391) 126 ML/MIN/1.73 CALC BUN/CREAT (test code = [...] code = 2219) <5 U/L Henry ContrerasLIPID [id number] 00:00:00* Test Item Value Reference Range Interpretation Comme nts CHOLESTEROL (test code = 2210) 186 MG/DL TRIGLYCERIDES (test code = 2232) 131 MG/DL HDL CHOLESTEROL (test code = 2220) 67 MG/DL CALC LDL CHOL (test code = 2237) 93 MG/DL RISK RATIO LDL/HDL (test cod e = 2238) 1.39 RATIO Henry Quiles BenCBC W/AUTO [id number] 00:00:00* Test Item Value Reference Range Interpretation [...] code = 1015) 152 K/UL Henry ContrerasHEMOGLOBIN [id number] 00:00:00* Test Item Value Reference Range Interpretation Comme nts HEMOGLOBIN A1c (test code = 07197) 5.2 % Henry [id number] 00:00:00* Test Item Value Reference Range Interpretation Comme nts TSH (test code = 2821) 2.020 UIU/ML Henry ContrerasCOMPREHENSIVE METABOLIC [id number] 00:00:00* Test Item Value Reference Range Interpretation Comme nts GLUCOSE (test code = 2217) 90 MG/DL BUN (test code = 2208) 21 MG/DL CREATININE (test code = 2214) 0.42 MG/DL eGFR AMER. (test cod e = 82667) 145 ML/MIN/1.73 eGFR NON- AMER. (test code = 98720) 126 ML/MIN/1.73 CALC BUN/CREAT (test code = [...]
[2024-07-22 14:41] LABS: Absolute Eosinophils 0.1 K/uL (0-0.5); Absolute Lymphocytes (CBC) 1.5 K/uL (0.7-4.9); Absolute Monocytes 0.5 K/uL (0.1-1.3); Basophils % 0.7 % (0-1.3); Eosinophils % 2.2 % (0-4.4); Hematocrit 31.2 % (36.0-45.0); Hemoglobin 10.8 g/dL (12.0-15.0); Lymphocytes % 29.5 % (15.3-44.8); MCH 28.8 pg (27.0-35.0); MCHC 34.7 g/dL (32.0-36.0); MCV 82.9 fL (80-100); MPV 7.3 fL (7.6-11.3); Monocytes % 10.3 % (3.3-12.3); Neutrophils % 57.3 % (41.7-73.7); Nucleated Red Blood Cells % 0.1 % (0-0); Platelets 156 thou/uL (152-406); RBC Red Blood Cell Count 3.76 M/uL (3.86-4.86); Red Cell Distribution Width 16.2 % (12.1-15.2)
[2024-07-22] MEDS ORDERED: FORMULATION-R RECTAL 57GM PR ONE (14:45)
[2024-07-22 14:57] LABS: AST/SGOT 13 U/L (15-37); Albumin 2.4 g/dL (3.4-5.0); Albumin/Globulin Ratio 0.6 (1.1-1.8); Alkaline Phosphatase 73 U/L (45-117); Anion Gap 10.5 mEq/L (5.0-15.0); BUN Blood Urea Nitrogen 18 mg/dL (7-18); Bicarbonate 23 mEq/L (21-32); Bilirubin Total 0.2 mg/dL (0.2-1.0); Glomerular Filtration Rate 119 ml/min (=/>90); Glucose Level 124 mg/dL (74-106); Lipase 30 U/L (13-75); Potassium 3.5 mEq/L (3.5-5.1); Protein, Total 6.4 g/dL (6.4-8.2); Sodium Level 135 mEq/L (136-145)
[2024-07-22 15:15] LABS: ALT/SGPT < 14 U/L (13-56)
--- NOTE | 2024-07-22 15:52 | ER ---
Nurse's Notes [facility] Name: Davida Hodges Age: 49 yrs Sex: Female : 1975 Arrival Date: 07/22/2024 Time: 13:31 Bed 7 Private MD: Diagnosis: Unspecified hemorrhoids Presentation: 07/22 13:50 Chief complaint: Patient states: Abd pain, malaise, diarrhea X 2 days. Coronavirus ld1 screen: At this time, the client does not indicate any symptoms associated with coronavirus-19. Ebola Screen: No symptoms or risks identified at this time. Initial Sepsis Screen: Does the patient meet any 2 criteria? No. Patient's initial sepsis screen is negative. Does the patient have a suspected source of infection? No. Patient's initial sepsis screen is negative. Risk Assessment: Do you want to hurt yourself or someone else? Patient reports no desire to harm self or others. Onset of symptoms was July 22, 2024. 13:50 Method Of Arrival: Ambulatory ld1 13:50 Acuity: CARMITA 3 ld1 Triage Assessment: 13:50 General: Appears in no apparent distress. comfortable, Behavior is calm, cooperative, ld1 appropriate for age. Pain: Complains of pain in abdomen Pain does not radiate. Pain currently is 8 out of 10 on a pain scale. Quality of pain is described as throbbing, Pain began suddenly, Is continuous. EENT: No signs and/or symptoms were reported regarding the EENT system. Neuro: Level of Consciousness is awake, alert, obeys commands, Oriented to person, place, time, situation, Appropriate for age. Cardiovascular: Capillary refill < 3 seconds Patient's skin is warm and dry. Respiratory: Airway is patent Respiratory effort is even, unlabored. GI: Abdomen is round non-distended, Reports lower abdominal pain, upper abdominal pain. : No signs and/or symptoms were reported regarding the genitourinary system. Derm: No signs and/or symptoms reported regarding the dermatologic system. Musculoskeletal: No signs and/or symptoms reported regarding the musculoskeletal system. 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 - Infectious Disease History:: Denies. - Social history:: Smoking status: Patient denies any tobacco usage or history of. - Family history:: not pertinent. - Hospitalizations: : No recent hospitalization is reported. Screenin:[address] [facility] ED Fall Risk Assessment (Adult) History of falling in the last 3 months, ko1 including since admission No falls in past 3 months (0 pts) Confusion or Disorientation No (0 pts) Intoxicated or Sedated No (0 pts) Impaired Gait No (0 pts) Mobility Assist Device Used No (0 pt) Altered Elimination No (0 pt) Score/Fall Risk Level 0 - 2 = Low Risk Oriented to surroundings, Maintained a safe environment, Educated pt \T\ family on fall prevention, incl call for assistance when getting out of bed, Assessed \T\ reinforced patient's understanding of fall precautions, Hourly rounding (assess needs \T\ fall precautionary measures) done. Abuse screen: Denies threats or abuse. Denies injuries from another. Nutritional screening: No deficits noted. Tuberculosis screening: No symptoms or risk factors identified. Assessment: 14:59 General: Appears in no apparent distress. Behavior is cooperative. Pain: Complains of ko1 pain in abdomen. Neuro: No deficits noted. Cardiovascular: No deficits noted. Respiratory: No deficits noted. GI: Bowel sounds present X 4 quads. Abd is soft and non tender. : No deficits noted. No signs and/or symptoms were reported regarding the genitourinary system. EENT: No deficits noted. No signs and/or symptoms were reported regarding the EENT system. Derm: No deficits noted. No signs and/or symptoms reported regarding the dermatologic system. Musculoskeletal: No deficits noted. No signs and/or symptoms reported regarding the musculoskeletal system. 16:33 Reassessment: Patient appears in no apparent distress at this time. Patient and/or cm10 family updated on plan of care and expected duration. Pain level reassessed. Patient is alert, oriented x 3, equal unlabored respirations, skin warm/dry/pink. Patient states feeling better. Patient states symptoms have improved. Vital Signs: 13:50 BP 118 / 71; Pulse 72; Resp 18; Temp 97.6(TE); Pulse Ox 97% on R/A; Weight 79.83 kg; ld1 Height 5 ft. 4 in. ; Pain 6/10; 16:33 BP 111 / 80; Pulse 95; Resp 15; Pulse Ox 97% ; cm10 13:50 Body Mass Index 30.21 (79.83 kg, 162.56 cm) ld1 13:50 Pain Scale: Adult ld1 ED Course: 13:32 Patient arrived in ED. im 13:32 Yong Banks MD is Attending Physician. rn 13:50 Arm band placed on right wrist. ld1 13:52 Triage completed. ld1 14:32 Mi Trinh, RN is Primary Nurse. ko1 14:32 Patient has correct armband on for positive identification. Allergy band placed. Placed ko1 in gown. Bed in low position. Call light in reach. Side rails up X2. Provided Education on: IV. Pulse ox on. NIBP on. Door closed. Noise minimized. Lights dimmed. Warm blanket given. Pillow given. 14:32 No provider procedures requiring assistance completed. ko1 14:54 CMP Sent. ko1 14:54 Lipase Sent. ko1 14:59 Inserted saline lock: 18 gauge in right forearm, using aseptic technique. Blood ko1 collected. Flushed with 10 mL NS. 16:33 IV discontinued, intact, bleeding controlled, No redness/swelling at site. Pressure cm10 dressing applied. Administered Medications: 14:54 Drug: Pramoxine-Mineral Oil-Zinc NH Ointment 1 inches NH once Route: NH; ko1 16:33 Follow up: Response: No adverse reaction cm10 Medication: 14:32 VIS not applicable for this client. ko1 Outcome: 15:52 Discharge ordered by . rn 16:34 Discharged to home ambulatory, cm10 16:34 Condition: good 16:34 Discharge instructions given to patient, Instructed on discharge instructions, follow up and referral plans. Demonstrated understanding of instructions, follow-up care, 16:34 Patient left the ED. cm10 Signatures: Yong Banks MD MD rn Sims, Lauren RN RN ld1 Mi Trinh, RN RN ko1 Shonna Phillip Clarissa, RN RN cm10
--- NOTE | 2024-07-22 15:52 | EDPHYS ---
Physician Documentation [facility] Name: Davida Hodges Age: 49 yrs Sex: Female : 1975 Arrival Date: 07/22/2024 Time: 13:31 Bed 7 Private MD: ED Physician Yong Banks HPI: 07/22 13:37 This 49 yrs old Female presents to ER via Unassigned with complaints of rn Abdominal Pain, Diarrhea. 13:37 The patient presents to the emergency department with. rn 13:50 Onset: The symptoms/episode began/occurred 2 week(s) ago. Possible causes: Hemorrhoids. rn The symptoms are aggravated by nothing. The symptoms are alleviated by nothing. Severity of symptoms: At their worst the symptoms were mild in the emergency department the symptoms are unchanged. The patient has experienced similar episodes in the past. Patient reports 2 weeks of hemorrhoidal pain. Has dealt with hemorrhoids in the past but no longer has hemorrhoid cream. Reports mild lower abdominal pain without vomiting or diarrhea. Patient denies significant bleeding. Mild amount of blood when wiping. No recent trauma. No fever or chills. Has good appetite and ate breakfast this morning without difficulty.. 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 - Infectious Disease History:: Denies. - Social history:: Smoking status: Patient denies any tobacco usage or history of. - Family history:: not pertinent. - Hospitalizations: : No recent hospitalization is reported. 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 No pulse deficits. Respiratory: No increased work of breathing, no retractions or nasal flaring. Abdomen/GI: Soft no focal tenderness. Skin: Warm, dry Neuro: Awake and alert, GCS 15, oriented to person, place, time, and situation. Cranial nerves II-XII grossly intact. Motor strength 5/5 in all extremities. Sensory grossly intact. Cerebellar exam normal. Normal gait. Vital Signs: 13:50 BP 118 / 71; Pulse 72; Resp 18; Temp 97.6(TE); Pulse Ox 97% on R/A; Weight 79.83 kg; ld1 Height 5 ft. 4 in. ; Pain 6/10; 16:33 BP 111 / 80; Pulse 95; Resp 15; Pulse Ox 97% ; cm10 13:50 Body Mass Index 30.21 (79.83 kg, 162.56 cm) ld1 13:50 Pain Scale: Adult ld1 MDM: 13:32 Medical Screening Exam initiated rn 15:50 Differential diagnosis: Nonspecific abd pain, gastritis, viral gastroenteritis, rn gastroenteritis, Hemorrhoids, nonspecific pain, chronic abdominal pain. Data reviewed: vital signs, nurses notes, lab test result(s), and as a result, I will discharge patient. Counseling: I had a detailed discussion with the patient and/or guardian regarding the historical points, exam findings, and any diagnostic results supporting the discharge/admit diagnosis, lab results, the need for outpatient follow up, to return to the emergency department if symptoms worsen or persist or if there are any questions or concerns that arise at home. Response to treatment: the patient's symptoms have mildly improved after treatment, and as a result, I will discharge patient. Special discussion: I discussed with the patient/guardian in detail that at this point there is no indication for admission to the hospital. It is understood, however, that if the symptoms persist or worsen the patient needs to return immediately for re-evaluation. ED course: No acute findings on blood work. Patient with chronic abdominal complaints as well as hemorrhoid complaints. Normal H\T\H and normal WBC. Patient is afebrile without vomiting or diarrhea. No indication for emergent imaging at this time. I have personally reviewed all of the results, including but not limited to blood tests and imaging deemed necessary to safely discharge this patient at this time. All results given to and printed out for patient. I personally went over all the results with the patient and answered all questions. Patient will follow-up with PCP and or specialist as discussed. Return precautions given and understood.. 15:52 ED course: Patient given 2 puffs of hemorrhoidal cream and ointment here in ER from rn pharmacy, will go home with medication as she has difficulty filling prescriptions financially.. 07/22 13:36 Order name: CBC with Diff; Complete Time: 14:55 rn 07/22 13:36 Order name: CMP; Complete Time: 15:22 rn 07/22 13:36 Order name: Lipase; Complete Time: 15:22 rn 07/22 13:36 Order name: IV Saline Lock; Complete Time: 14:47 rn 07/22 13:36 Order name: Labs collected and sent; Complete Time: 14:54 rn Administered Medications: 14:54 Drug: Pramoxine-Mineral Oil-Zinc MO Ointment 1 inches MO once Route: MO; ko1 16:33 Follow up: Response: No adverse reaction cm10 Disposition Summary: 07/22/24 15:52 Discharge Ordered Notes: Location: Home rn Problem: chronic rn Symptoms: have improved rn Condition: Stable rn Diagnosis - Unspecified hemorrhoids rn Followup: rn - With: Private Physician - When: As needed - Reason: Recheck today's complaints, Re-evaluation by your physician Discharge Instructions: - Discharge Summary Sheet rn - Hemorrhoids rn Forms: - Medication Reconciliation Form rn - Antibiotic rn document improvement - Prescription Opioid Use rn - Patient Portal Instructions rn - Leadership Thank You Letter rn Signatures: Dispatcher [employer] Yong Hernandez MD MD rn Sims, Lauren RN RN ld1 Mi Trinh RN RN caleb1 Iris Perez RN cm10
[2024-07-22 22:58] VITALS: TEMP 97.6; O2SAT 97
[2024-07-22 23:08] VITALS: BP 111/80
== END 2024-07-22 16:34 | disposition home or self-care (01) ==
LOC: ER 13:31
DX: K64.9 Unspecified hemorrhoids (principal)
CPT/HCPCS: 36415; 80053; 83690; 85025

== ENCOUNTER 2024-07-30 14:15 | Emergency (ER) | payer SELFPAY ==
--- OUTSIDE RECORDS SUMMARY | 2024-07-30 14:25 | XMS REPORT | Continuity of Care Document ---
Author Name Unknown Address [address] [place] [address] [facility] thconnect Address [address] [place] [address] Care Team Providers Care Academic Tutor Name Role Phone PCP, NO Primary Care Physician Unavailab LAWRENCE Weston Attending Clinician Unavailable ARLEN LAGUNAS Attending Clinician Unavailable JUAN MIGUEL PRICE Attending Clinician Unavailable IMMARAJ, MELVINA SWARUP J Attending Clinician UnaIndio Arizmendi MD Attending Clinician [phone] INDIO PHELAN Attending Clinician Unavail able INDIO PHELAN Attending Clinician Unavail able Doctor Unassigned, [place] Attending Clinician [facility] Attending Clinician Unavailable DR JESS PAIGE Attending Clinician Unavailable Heri Snow MD Attending Clinician [phone] Denise MELTON, Madhavi Mota Attending Clinician Zari Marly Rodríguez Attending Clinician Unavailable Asim Jack Attending Clinician Unavailable Vladimir Forbes Attending Clinician Unavailable Brad Woodall Attending Clinician Unavaila Russel Angelo Attending Clinician Unavailermelinda Morfin MD, Lisa Schmitz Attending Clinician [phone] Sandrita Key MD Attending Clinician [phone] Attending Clinician Unavailable TAYO BOYD Attending Clinician Unavailable Tayo Boyd MD Attending Clinician [phone] JAVED FRANK Attending Clinician Unavailable Zac CROFT, Javed Attending Clinician [phone] DEON NUNEZ Attending Clinician Unavailable Deon Nunez DO Attending Clinician [phone] Kp Dorado Attending Clinician [phone] Kp GILLILAND Attending Clinician Unavailable Kristin Howell Attending Clinician [phone] KRISTIN MILLER Attending Clinician Unavailable Floridalma Evans MD Attending Clinician [phone] FLORIDALMA EVANS Attending Clinician Unavailable Unknown, Attending Attending Clinician Unavailab LISA Kasper Attending Clinician UnavailHENRY Hall Attending Clinician Unavailable Henry Owen MD Attending Clinician [phone] DEBBIE PAYTON Attending Clinician Unavailab Debbie Hernandez DO Attending Clinician [phone] Le Ramirez NP Attending Clinician [phone] LAWRENCE MEJIAS Admitting Clinician Unavailable KAYLA ALANIZ [...] Number Effective Date Expirati on Date Source [facility] [id number] 1000 [id number] 2022 00:00:00 MEDICAID ALIEN PENDING PENDING 2021 [...] different from the original. ICD10 Diagnosis Term Medical Information Officer Utility [facility] Asthma Asthma Disease Active 08-01 00:00: 00 Overview: Formattin g of this note might be different from the original. ICD10 Diagnosis Term Medical Information Officer Utility [facility] Mental disorder Mental disorder Disease Active 08-01 00:00: 00 [facility] Encounter for routine gynecologi gracie examinatio n Encounter for routine gynecologi gracie examinatio n Disease Active 08-01 00:00: 00 Overview: Formattin g of this note might be different from the original. ICD10 Diagnosis Term Medical Information Officer Utility [facility] Morbid obesity [...] s NA Active 11-23 07:59: 00 [facility] No Known Allergie s NA Active 11-22 21:17: 11 [facility] No Known Allergie s NA Active 11-22 19:46: 36 [facility] No Known Allergie s DA Active U 09-13 00:00: 00 [facility] carbamaz epine DA Active U UNKNOWN 09-13 00:00: 00 [facility] carbamaz epine DA Active U UNKNOWN 09-10 00:00: 00 [facility] No Known Drug Allergie s DA Active [facility] NO KNOWN ALLERGIE S Drug Class Active [facility] Social History Social Habit Start Date Stop Date Quantity Comments Source [facility] Dany pinzon ([place]) Future intention Reported Muslim Wiliam glover ([place]) Alcohol intake 2023-07-23 00:00:00 2023-07-23 00:00:00 Current non-drinker of alcohol (finding) [facility] History of Social function 2023-07-23 00:00:00 2023-07-23 00:00:00 [facility] Exposure to SARS-CoV-2 (event) 2022-09-14 00:00:00 2022-09-24 12:30:00 Not sure [facility] Tobacco use and exposure 2014-07-05 00:00:2014-07-05 00:00:00 Smokeless tobacco non-user [facility] Sex Assigned At 1975 00:00:00 1975 00:00:00 [facility] Smoking Status Start Date Stop Date Source Never smoked tobacco [facility] Medications Ordered Medication Name Filled Medication Name Start Date Stop Date Current Medication? Ordering Clinician Indication Dosage Frequency Signature (SIG) Comments Components Source buspirone 5 mg tablet 07-23 00:00: 00 Yes 1mg Henry Contreras risperidone 1 mg tablet 07-23 00:00: 00 Yes 1mg Henry Contreras levothyroxi ne 50 mcg tablet 07-23 00:00: 00 Yes 1mcg Henry Contreras ropinirole 2 mg tablet 07-18 00:00: 00 Yes 1mg Henry Contreras oxcarbazepi ne 300 mg tablet 2023-06 00:00: 00 Yes 1mg Henry Contreras buspirone 15 mg tablet 2023-06 00:00: 00 Yes 1mg Henry Contreras divalproex ER 500 mg tablet,exte nded release 24 hr 2023-06 2 00:00: 00 Yes 2mg Henry Contreras risperidone 1 mg tablet 2023-06 00:00: 00 Yes 1mg Henry Contreras oxcarbazepi ne 300 mg tablet 2023-06 00:00: 00 Yes 1mg Henry Contreras buspirone 15 mg tablet 2023-06 00:00: 00 Yes 1mg Henry Contreras divalproex ER 500 mg tablet,exte nded release 24 hr 2023-06 00:00: 00 Yes 2mg Henry Contreras risperidone 1 mg tablet 2023-06 00:00: 00 Yes 1mg Henry Contreras promethazin e-DM 6.25 mg-15 mg/5 mL oral syrup 2023-06 0- 00:00: 00 Yes 5mg/5 mL Henry Contreras ropinirole 2 mg tablet 02-23 00:00: 00 Yes 1mg Henry Contreras buspirone 5 mg tablet 02-23 00:00: 00 Yes 1mg Henry Contreras risperidone 1 mg tablet 02-23 00:00: 00 Yes 1mg Henry Contreras levothyroxi ne 50 mcg tablet 02-23 00:00: 00 Yes 1mcg Henry Contreras levothyroxi ne 50 mcg tablet 02-07 00:00: 00 Yes 1mcg Henry Contreras Take 1 tablet by mouth daily 02-07 00:00: 00 Yes Henry Contreras oxcarbazepi ne 300 mg tablet 12-31 00:00: 00 Yes 1mg Henry Contreras buspirone 5 mg tablet 12-31 00:00: 00 Yes 1mg Henry Conrteras divalproex ER 500 mg tablet,exte nded release [...] SOLN|dose: 2.0 mg|route:| frequency: ONE TIME [facility] ([facility]) diphenhydrA MINE INJ (Benadryl) 50 MG/ML SOLN diphenhydrA MINE INJ (Benadryl) 50 MG/ML SOLN 11-22 23:33: 00 11-22 23:33 :00 No 50mg medication :diphenhyd rAMINE INJ (Benadryl) 50 MG/ML SOLN|dose: 50.0 mg|route:| frequency: ONE TIME [facility] ([facility]) LORazepam INJ 2 MG/1 ML SOLN LORazepam INJ 2 MG/1 ML SOLN 11-22 23:33: 00 11-22 23:33 :00 No 2mg medication :LORazepam INJ 2 MG/1 ML SOLN|dose: 2.0 mg|route:| frequency: ONE TIME [facility] ([facility]) ziprasidone INJ 20 MG SOLR ziprasidone INJ 20 MG SOLR 11-22 20:05: 00 11-22 20:05 :00 No 10mg medication :ziprasido ne INJ 20 MG SOLR|dose: 10.0 mg|route:I NTRAMUSCUL AR|frequen cy:ONE TIME [facility] ([facility]) sterile water for injection SOLN sterile water for injection SOLN 11-22 20:05: 00 11-22 20:05 :00 No 10mL medication :sterile water for injection SOLN|dose: 10.0 mL|route:| frequency: ONE TIME [facility] ([facility]) levothyroxi ne 50 mcg tablet 10-12 00:00: 00 Yes 1mcg Henry Contreras TAKE 1 TABLET EVERY MORNING. 09-15 00:00: 00 02-25 00:00 :00 No 50 Henry Contreras TAKE 1 TABLET AT BEDTIME. 09-15 00:00: 00 02-25 00:00 :00 No 1 Henryjoseph Contreras TAKE 1 TABLET BY MOUTH DAILY 09-15 00:00: 00 02-25 00:00 :00 No 2 Henryjoseph Contreras levothyroxi ne 50 mcg tablet 09-08 00:00: 00 Yes 1mcg Henry Contreras TAKE 1 TABLET EVERY MORNING. 08-02 00:00: 00 02-25 00:00 :00 No 50 Henry Contreras TAKE 1 TABLET 3 TIMES A DAY NEEDED FOR ANXIETY - 00:00: 00 02-25 00:00 :00 No 5 Henry Etta Contreras TAKE 1 TABLET BY MOUTH DAILY 08-01 00:00: 00 02-25 00:00 :00 No 2 Henry F Ben TAKE 1 TABLET AT BEDTIME. 08-01 00:00: 00 02-25 00:00 :00 No 1 Henry Contreras risperidone 1 mg tablet 07-31 00:00: 00 Yes mg Henry Contreras TAKE 1 TABLET BY MOUTH EVERY NIGHT AT BEDTIME 07-23 00:00: 00 Yes Henry Contreras risperiDONE 1 mg tablet 07-23 00:00: 00 Yes [id number] 1mg Take 1 tablet by mouth at bedtime. [facility] TAKE 1 TABLET 3 TIMES A DAY NEEDED FOR ANXIETY 07-04 00:00: 00 02-25 00:00 :00 No 5 Henry Contreras TAKE 1 TABLET DAILY. 07-01 00:00: 00 02-25 00:00 :00 No 25 Henry Contreras TAKE [...] TABLET BY MOUTH DAILY 2022-06 00:00: 00 02-25 00:00 :00 No 2 Henry Contreras TAKE 1 TABLET DAILY. 2022-06 00:00: 00 02-25 00:00 :00 No 25 Henry Contreras TAKE 1 TABLET EVERY 6 HOURS NEEDED FOR DIZZINESS. 2022-06 00:00: 00 02-25 00:00 :00 No 25 Henry Contreras TAKE 1 TABLET DAILY. 2022-06 00:00: 00 02-25 00:00 :00 [place] [id number] Henry Contreras TAKE 1 TABLET BY MOUTH DAILY 2022-06 00:00: 00 02-25 00:00 :00 No 2 Henry Contreras TAKE 1 TABLET DAILY. 03-04 00:00: 00 02-25 00:00 :00 [place] [id number] Henry Contreras TAKE 1-2 TABS EVERY 8 HOURS NEEDED 03-02 00:00: 00 02-25 00:00 :00 No 125 Henry Contreras TAKE 1 CAPSULE BY MOUTH ONCE DAILY 03-02 00:00: 00 02-25 00:00 :00 No 400 Henry Contreras APPLY 1 PATCH TO THE AFFECTED AREA AND LEAVE IN PLACE FOR 12 HOURS, THEN REMOVE AND LEAVE OFF FOR 12 HOURS. 01-31 00:00: 00 02-25 00:00 :00 No 5 Henry Contreras diclofenac [...] 1 dose, On 09/09/22 at 2115, STAT [facility] hydrOXYzine 25 mg tablet 09-09 00:00: 00 Yes [id number] 25mg Take 1 tablet by mouth every 6 (six) hours. [facility] levETIRAcet am (KEPPRA) 500 mg tablet 09-09 00:00: 00 Yes [id number] 500mg Take 1 tablet by mouth 2 (two) times daily. [facility] acetaminoph en (TYLENOL) tablet 650 mg 09-07 00:45: 00 09-07 02:10 :00 No 650mg 650 mg, Oral, ONCE, 1 dose, On Diana 09/06/22 at 1945, [facility] TAKE 1 TABLET BY MOUTH [...] ONCE, 1 dose, On Sat10/02/21 at 1715, [facility] ibuprofen (IBU) tablet 600 mg 10-02 22:15: 00 10-02 23:27 :00 No 600mg 600 mg, Oral, ONCE, 1 dose, On Sat10/02/21 at 1715, [facility] hydroxyzine HCl 25 mg tablet 2020-06 00:00: 00 Yes 1mg Henry Contreras traMADoL 50 mg tablet 2020-06 00:00: 00 Yes [id number] 50mg Take 1 tablet by mouth every 6 (six) hours as needed for Pain (scale 7-10). Indication s: acute pain [facility] naproxen sodium (ANAPROX DS) 550 mg tablet 2020-06 00:00: 00 Yes [id number] 550mg Take 1 tablet by mouth 2 (two) times daily with meals. [facility] ibuprofen 600 mg tablet 2020-06 00:00: 00 Yes 1mg Henry Contreras amoxicillin -clavulanat e 875-125 mg per tablet 08-13 00:00: 00 Yes [id number] 1{tbl} Take 1 tablet by mouth every 12 (twelve) hours. [facility] clindamycin 300 mg capsule 08-13 00:00: 08-23 05:59 :00 No [id number] 300mg Take 1 capsule by mouth 4 (four) times daily for 10 days. [facility] methocarbam ol (ROBAXIN) tablet 1,000 mg 07-23 00:30: 07-22 23:39 :00 No 1000mg 1,000 mg, Oral, ONCE, 1 dose, Sat07/22/19 at 1830, Routine [facility] Keflex 500 mg capsule 07-23 00:00: 00 Yes 1mg Henry Contreras Bromfed DM 2 mg-30 mg-10 mg/5 mL oral syrup 07-23 00:00: 00 Yes 5mg/5 mL Henry Contreras ketorolac (TORADOL) injection 30 mg 07-23 00:00: 07-22 23:00 :00 No 30mg 30 mg, Intramuscu lar, ONCE, 1 dose, Sat07/22/19 at 1800, Routine
store team member approving Restricted medication : LISA MORFIN [facility] mupirocin 2 % topical ointment 07-16 00:00: 00 Yes 1% Henry Contreras Keflex 500 mg capsule 07-16 00:00: 00 Yes 1mg Henry Contreras ketorolac (TORADOL) injection 30 mg 07-14 03:30: 00 07-14 02:57 :00 No 30mg 30 mg, Intramuscu lar, ONCE, 1 dose, Sat07/13/19 at 2130, AYESHA
Fa culty member approving Restricted medication : HENRY OWEN [facility] ketorolac 10 mg tablet 07-13 00:00: 07-19 05:59 :00 No [id number] 10mg Take 1 tablet by mouth every 8 (eight) hours for 5 days. [facility] mupirocin 2 % topical ointment 07-10 00:00: 00 Yes 1% Henry Contreras ibuprofen 800 mg tablet 07-10 00:00: 00 Yes 1mg Henry Contreras Keflex 500 mg capsule 07-10 00:00: 00 Yes 1mg Henry Contreras cephALEXin (KEFLEX) 500 mg capsule 07-04 00:00: 00 Yes [id number] 500mg Take 1 capsule by mouth 4 (four) times daily. [facility] traMADol 50 mg tablet 07-04 00:00: 00 05-05 00:00 :00 No [id number] 50mg Take 1 tablet by mouth every 6 (six) hours as needed for Pain (scale 7-10). [facility] bacitracin 500 unit/gram ointment 07-04 00:00: 00 07-15 05:59 :00 No [id number] Apply to affected area(s) 2 (two) times daily for 10 days. [facility] traMADol 50 mg tablet 06-30 00:00: 00 05-05 00:00 :00 No [id number] 50mg Take 1 tablet by mouth every 6 (six) hours as needed for Pain (scale 7-10). [facility] Dose Unknown 2018-06 00:00: [...] daily with meals. [facility] nystatin-tr iamcinolone 100,000 unit/g-0.1 [...] Pain (scale 4-6). [facility] hydrocortis one 2.5 % rectal cream 12-31 00:00: 00 Yes Insert into rectum 2 (two) times daily. [facility] hydrocortis one (ANUSOL-HC) 25 mg suppository 07-23 00:00: 00 Yes 25mg Insert 1 Suppositor y into rectum 2 (two) times daily. [facility] Trileptal 300 mg tablet [...] COVID-19 Vaccine Moderna COVID-19 Vaccine 2020-08-26 00:00:00 Van [facility]re[facility] Vital Signs Vital Name Observation Time Observation Value Cathy martin Body temperature 2023-11-24 19:00:00 98.1 [degF] [facility]) Diastolic blood pressure 2023-11-24 19:00:00 69 mm[Hg] [facility] Heart rate 2023-11-24 19:00:00 70 /min [facility] [place]) Oxygen saturation in Arterial blood by Pulse oximetry 2023-11-24 19:00:00 97 /min [facility] Respiratory rate 2023-11-24 19:00:00 16 /min [facility]) Systolic blood pressure 2023-11-24 19:00:00 127 mm[Hg] [facility] Diastolic blood pressure 2023-11-23 23:30:00 78 mm[Hg] [facility] Heart rate 2023-11-23 23:30:00 74 /min [facility] [place]) Oxygen saturation in Arterial blood by Pulse oximetry 2023-11-23 23:30:00 97 /min [facility] Respiratory rate 2023-11-23 23:30:00 16 /min [facility]) Systolic blood pressure 2023-11-23 23:30:00 134 mm[Hg] [facility] Body temperature 2023-11-23 19:30:00 98.5 [degF] [facility]) Body height 2023-07-23 20:19:00 152.4 cm [facility] Body weight 2023-07-23 20:19:00 77.837 kg [facility] BMI 2023-07-23 20:19:00 33.51 kg/m2 [facility] Height 2022-11-04 14:04:00 149.86 CM Weight 2022-11-04 14:04:00 73.02 KG Systolic blood pressure 2022-09-24 17:32:00 130 mm[Hg] [facility] Diastolic blood pressure 2022-09-24 17:32:00 85 mm[Hg] [facility] Heart rate 2022-09-24 17:32:00 64 /min [facility] Body temperature 2022-09-24 17:32:00 36.83 Oma [facility] Respiratory rate 2022-09-24 17:32:00 18 /min [facility] Body weight 2022-09-24 17:32:00 74.844 kg [facility] BMI 2022-09-24 17:32:00 33.33 kg/m2 [facility] Oxygen saturation in Arterial blood by Pulse oximetry 2022-09-24 17:32:00 99 /min [facility] Systolic blood pressure 2022-09-10 23:55:00 111 mm[Hg] [facility] Diastolic blood pressure 2022-09-10 23:55:00 84 mm[Hg] [facility] Heart rate 2022-09-10 23:55:00 105 /min [facility] Body temperature 2022-09-10 23:55:00 37.33 Oma [facility] Respiratory rate 2022-09-10 23:55:00 19 /min [facility] Systolic blood pressure 2022-09-10 01:44:00 126 mm[Hg] [facility] Diastolic blood pressure 2022-09-10 01:44:00 81 mm[Hg] [facility] Heart rate 2022-09-10 01:44:00 78 /min [facility] Body temperature 2022-09-10 01:44:00 36.56 Oma [facility] Respiratory rate 2022-09-10 01:44:00 16 /min [facility] Body weight 2022-09-10 01:44:00 79.379 kg [facility] BMI 2022-09-10 01:44:00 35.35 kg/m2 [facility] Oxygen saturation in Arterial blood by Pulse oximetry 2022-09-10 01:44:00 100 /min [facility] Systolic blood pressure 2022-09-07 05:37:00 119 mm[Hg] [facility] Diastolic blood pressure 2022-09-07 05:37:00 67 mm[Hg] [facility] Heart rate 2022-09-07 05:37:00 79 /min [facility] Respiratory rate 2022-09-07 05:37:00 16 /min [facility] Oxygen saturation in Arterial blood by Pulse oximetry 2022-09-07 05:37:00 98 /min [facility] Body temperature 2022-09-06 23:05:00 36.78 Oma [facility] Body weight 2022-09-06 23:05:00 79.379 kg [facility] BMI 2022-09-06 23:05:00 35.35 kg/m2 [facility] Systolic blood pressure 2021-10-02 20:55:00 111 mm[Hg] [facility] Diastolic blood pressure 2021-10-02 20:55:00 70 mm[Hg] [facility] Heart rate 2021-10-02 20:55:00 79 /min [facility] Body temperature 2021-10-02 20:55:00 36.61 Oma [facility] Respiratory rate 2021-10-02 20:55:00 18 /min [facility] Body height 2021-10-02 20:55:00 149.9 cm [facility] Body weight 2021-10-02 20:55:00 79.379 kg [facility] BMI 2021-10-02 20:55:00 35.35 kg/m2 [facility] Oxygen saturation in Arterial blood by Pulse oximetry 2021-10-02 20:55:00 100 /min [facility] Systolic blood pressure 2021-05-05 19:20:00 102 mm[Hg] [facility] Diastolic blood pressure 2021-05-05 19:20:00 48 mm[Hg] [facility] Heart rate 2021-05-05 19:20:00 68 [facility] Body temperature 2021-05-05 19:20:00 36.94 Oma [facility] Respiratory rate 2021-05-05 19:20:00 18 /min [facility] Body weight 2021-05-05 19:20:00 79.379 kg [facility] BMI 2021-05-05 19:20:00 35.35 kg/m2 [facility] Oxygen saturation in Arterial blood by Pulse oximetry 2021-05-05 19:20:00 99 /min [facility] Systolic blood pressure 2019-12-15 22:12:00 138 mm[Hg] [facility] Diastolic blood pressure 2019-12-15 22:12:00 100 mm[Hg] [facility] Heart rate 2019-12-15 22:12:00 77 /min [facility] Body temperature 2019-12-15 22:12:00 37.06 Oma [facility] Respiratory rate 2019-12-15 22:12:00 20 /min [facility] Body weight 2019-12-15 22:12:00 79.379 kg [facility] BMI 2019-12-15 22:12:00 35.35 kg/m2 [facility] Oxygen saturation in Arterial blood by Pulse oximetry 2019-12-15 22:12:00 100 /min [facility] Systolic blood pressure 2019-12-15 22:12:00 138 mm[Hg] [facility] Diastolic blood pressure 2019-12-15 22:12:00 100 mm[Hg] [facility] Heart rate 2019-12-15 22:12:00 77 /min [facility] Body temperature 2019-12-15 22:12:00 37.06 Oma [facility] Respiratory rate 2019-12-15 22:12:00 20 /min [facility] Body weight 2019-12-15 22:12:00 79.379 kg [facility] BMI 2019-12-15 22:12:00 35.35 kg/m2 [facility] Oxygen saturation in Arterial blood by Pulse oximetry 2019-12-15 22:12:00 100 /min [facility] Respiratory rate 2019-10-25 23:43:00 18 /min [facility] Body weight 2019-10-25 23:43:00 83.915 kg [facility] BMI 2019-10-25 23:43:00 37.37 kg/m2 [facility] Respiratory rate 2019-10-25 23:43:00 18 /min [facility] Body weight 2019-10-25 23:43:00 83.915 kg [facility] BMI 2019-10-25 23:43:00 37.37 kg/m2 [facility] Systolic blood pressure 2019-08-13 19:25:00 123 mm[Hg] [facility] Diastolic blood pressure 2019-08-13 19:25:00 88 mm[Hg] [facility] Heart rate 2019-08-13 19:25:00 78 /min [facility] Body temperature 2019-08-13 19:25:00 36.56 Oma [facility] Respiratory rate 2019-08-13 19:25:00 18 /min [facility] Body height 2019-08-13 19:25:00 149.9 cm [facility] Body weight 2019-08-13 19:25:00 90.719 kg [facility] BMI 2019-08-13 19:25:00 40.40 kg/m2 [facility] Oxygen saturation in Arterial blood by Pulse oximetry 2019-08-13 19:25:00 100 /min [facility] Systolic blood pressure 2019-08-13 19:25:00 123 mm[Hg] [facility] Diastolic blood pressure 2019-08-13 19:25:00 88 mm[Hg] [facility] Heart rate 2019-08-13 19:25:00 78 /min [facility] Body temperature 2019-08-13 19:25:00 36.56 Oma [facility] Respiratory rate 2019-08-13 19:25:00 18 /min [facility] Body height 2019-08-13 19:25:00 149.9 cm [facility] Body weight 2019-08-13 19:25:00 90.719 kg [facility] BMI 2019-08-13 19:25:00 40.40 kg/m2 [facility] Oxygen saturation in Arterial blood by Pulse oximetry 2019-08-13 19:25:00 100 /min [facility] Systolic blood pressure 2019-07-23 00:20:15 120 mm[Hg] [facility] Diastolic blood pressure 2019-07-23 00:20:15 74 mm[Hg] [facility] Heart rate 2019-07-23 00:20:15 82 /min [facility] Respiratory rate 2019-07-23 00:20:15 19 /min [facility] Oxygen saturation in Arterial blood by Pulse oximetry 2019-07-23 00:20:15 100 /min [facility] Body temperature 2019-07-22 19:41:00 36.33 Oma [facility] Body weight 2019-07-22 19:39:00 90.719 kg [facility] BMI 2019-07-22 19:39:00 39.06 kg/m2 [facility] Systolic blood pressure 2019-07-23 00:20:15 120 mm[Hg] [facility] Diastolic blood pressure 2019-07-23 00:20:15 74 mm[Hg] [facility] Heart rate 2019-07-23 00:20:15 82 /min [facility] Respiratory rate 2019-07-23 00:20:15 19 /min [facility] Oxygen saturation in Arterial blood by Pulse oximetry 2019-07-23 00:20:15 100 /min [facility] Body temperature 2019-07-22 19:41:00 36.33 Oma [facility] Body weight 2019-07-22 19:39:00 90.719 kg [facility] BMI 2019-07-22 19:39:00 39.06 kg/m2 [facility] Systolic blood pressure 2019-07-14 03:33:00 127 mm[Hg] [facility] Diastolic blood pressure 2019-07-14 03:33:00 88 mm[Hg] [facility] Heart rate 2019-07-14 03:33:00 79 /min [facility] Respiratory rate 2019-07-14 03:33:00 16 /min [facility] Oxygen saturation in Arterial blood by Pulse oximetry 2019-07-14 03:33:00 97 /min [facility] Body weight 2019-07-14 02:16:00 90.719 kg [facility] BMI 2019-07-14 02:16:00 39.06 kg/m2 [facility] Body temperature 2019-07-14 02:15:00 36.78 Oma [facility] Body weight 2019-07-10 20:39:00 90.719 kg [facility] BMI 2019-07-10 20:39:00 39.06 kg/m2 [facility] Systolic blood pressure 2019-01-21 23:34:00 133 mm[Hg] [facility] Diastolic blood pressure 2019-01-21 23:34:00 78 mm[Hg] [facility] Heart rate 2019-01-21 23:34:00 66 /min [facility] Body temperature 2019-01-21 23:34:00 36.94 O[facility] Respiratory rate 2019-01-21 23:34:00 18 /min [facility] Body height 2019-01-21 23:34:00 147.3 cm [facility] Body weight 2019-01-21 23:34:00 68.04 kg [facility] BMI 2019-01-21 23:34:00 31.35 kg/m2 [facility] Oxygen saturation in Arterial blood by Pulse oximetry 2019-01-21 23:34:00 100 /min [facility] Systolic blood pressure 2019-01-21 23:34:00 133 mm[Hg] [facility] Diastolic blood pressure 2019-01-21 23:34:00 78 mm[Hg] [facility] Heart rate 2019-01-21 23:34:00 66 /min [facility] Body temperature 2019-01-21 23:34:00 36.94 Oma [facility] Respiratory rate 2019-01-21 23:34:00 18 /min [facility] Body height 2019-01-21 23:34:00 147.3 cm [facility] Body weight 2019-01-21 23:34:00 68.04 kg [facility] BMI 2019-01-21 23:34:00 31.35 kg/m2 [facility] Oxygen saturation in Arterial blood by Pulse oximetry 2019-01-21 23:34:00 100 /min [facility] BP Systolic 2024-04-23 14:08:00 118 mm[Hg] Step hen F Ben BP Diastolic 2024-04-23 14:08:00 78 mm[Hg] Franck phen F Ben Weight Measured 2024-04-23 14:08:00 173.50 pounds Henry F Ben Height Measured 2024-04-23 14:08:00 56.50 inches Henry F Ben Body Temperature 2024-04-23 14:08:00 Henry F Ben Heart Rate 2024-04-23 14:08:00 60.00 /min Antoinette en F Ben Respiratory Rate 2024-04-23 14:08:00 18.00 /min Henry F Ben BP Systolic 2024-04-15 15:45:00 97 mm[Hg] Step hen F Ben BP Diastolic 2024-04-15 15:45:00 68 mm[Hg] Franck phen F Ben Weight Measured 2024-04-15 15:45:00 160.80 pounds Henry F Ben Height Measured 2024-04-15 15:45:00 56.50 inches Henry F Ben Body Temperature 2024-04-15 15:45:00 97.80 degrees Henry F Ben Heart Rate 2024-04-15 15:45:00 83.00 /min Antoinette en F Ben Respiratory Rate 2024-04-15 15:45:00 16.00 /min Henry F Ben BP Systolic 2024-02-24 13:46:00 107 mm[Hg] Step [...] Respiratory Rate 2023-01-09 17:12:00 19.00 /min Henry F [facility] Procedures Procedure Date / Time Performed Performing Clinician Source ASSIGNMENT OF BENEFITS 2023-07-23 18:45:32 Docto r Unassigned, [place] [facility] REFERRAL- REQUEST/RESPONSE 2023-06-05 06:01:00 Doctor Unassigned, [place] [facility] REFERRAL- REQUEST/RESPONSE 2023-05-20 06:01:00 Doctor Unassigned, [place] [facility] COMP. METABOLIC PANEL (58075) 2022-09-07 01:38:00 Tayo Boyd [facility] CBC WITH DIFF 2022-09-07 01:38:00 Tayo Boyd [facility] URINALYSIS 2022-09-07 01:38:00 Tayo Boyd [facility] XR ANKLE <3 VW LEFT 2022-09-07 00:56:00 Tayo Boyd [facility] XR FOOT <3 VW LEFT 2022-09-07 00:56:00 Tayo Boyd [facility] CONSENT/REFUSAL FOR DIAGNOSIS AND TREATMENT 2022-09-06 22:08:37 Doctor Unassigned, [place] [facility] CT CERVICAL SPINE WO CONTRAST 2021-10-02 21:53[facility] 2021-10-02 21:53:00 Rachael Frankanne [facility] CT THORACIC SPINE WO CONTRAST 2021-10-02 21:53:00 Rachael Frankanne [facility] XR FOREARM 2 VW RIGHT 2021-05-05 20:03:34 Jose Carlos Nunez [facility] XR WRIST 3+ VW RIGHT 2021-05-05 20:03:34 Chino Nunez [facility] NOTICE OF PRIVACY PRACTICES 2021-05-05 19:12:00 Doctor Unassigned, [place] [facility] CONSENT/REFUSAL FOR DIAGNOSIS AND TREATMENT 2021-05-05 19:11:19 Doctor Unassigned, [place] [facility] CONSENT/REFUSAL FOR DIAGNOSIS AND TREATMENT 2019-08-13 19:17:22 Doctor Unassigned, [place] [facility] CT HEAD WO CONTRAST 2019-07-22 22:24:37 Rachel Samayoa [facility] XR CERVICAL SPINE 2 VW 2019-07-22 21:59:59 Samantha Samayoa [facility] CBC WITH DIFFERENTIAL 2019-07-22 21:34:00 Yanira Samayoa [facility] XR CERVICAL SPINE 2 VW 2019-07-14 02:43:00 Ivory Owen [facility] XR ELBOW <3 VW LEFT 2019-07-14 02:43:00 Henry Owen [facility] XR KNEE <3 VW RIGHT 2019-07-14 02:43:00 Henry Owen [facility] XR SHOULDER <2 VW LEFT 2019-07-14 02:43:00 Ivory Owen [facility] [id number] Ecg Routine Ecg W/least 12 Lds W/i r 2017-09-24 00:00:00 Henry Contreras Encounters Start Date/Time End Date/Time Encounter Type Admission Type Attending [facility] Care Department Encounter ID Source 2022-11-13 13:10:28 Inpatient [facility] [id number] [facility] 2022-11-05 09:23:13 Inpatient [facility] [id number] [facility] 2024-07-23 14:05:55 2024-07-23 14:05:55 Outpatient SFA [facility] [id number] Henry Contreras 2024-07-23 00:00:00 2024-07-23 00:00:00 Outpatient Visit SFA [id number] Henry Contreras 2024-07-08 14:39:39 2024-07-08 14:39:39 Outpatient SFA SFA [id number] Henry Contreras 2024-07-07 15:49:36 2024-07-07 15:49:36 Outpatient SFA SFA [id number] Henry Contreras 2024-04-15 15:38:37 2024-04-15 15:38:37 Outpatient SFA SFA [id number] Henry Contreras 2024-02-24 00:00:00 2024-02-24 00:00:00 Outpatient Visit SFA [id number] Henry Contreras 2024-02-06 11:12:07 2024-02-06 11:12:07 Outpatient SFA SFA [id number] Henry Contreras 2024-01-02 13:29:25 2024-01-02 13:29:25 Outpatient SFA SFA [id number] Henry Contreras 2024-01-01 13:05:17 2024-01-01 13:05:17 Outpatient SFA SFA [id number] Henry Contreras 2023-12-23 17:12:35 2023-12-23 17:12:35 Outpatient SFA SFA [id number] Henry Contreras 2023-12-22 16:03:42 2023-12-22 16:03:42 Outpatient SFA SFA [id number] Henry Contreras 2023-12-01 14:21:07 2023-12-01 14:21:07 Outpatient SFA SFA [id number] Henry Contreras 2023-11-25 16:08:00 2023-11-25 16:08:00 Outpatient SFA SFA [id number] Henry Contreras 2023-11-25 00:00:00 2023-11-25 00:00:00 Outpatient Visit SFA [id number] Henry Contreras 2023-11-23 19:45:00 2023-11-24 19:04:00 [facility] 2.16.840.1. [id number] [facility] 2023-11-21 19:00:00 2023-11-22 01:00:00 Emergency ER JANNETH, ARLEN [id number] [facility] 2023-11-16 23:05:00 2023-11-21 17:28:00 Inpatient ER JUAN MIGUEL PRICE [id number] [facility] 2023-11-15 16:24:00 2023-11-15 22:54:00 Emergency [facility] [id number] RODERICK Ainsley Ro [facility] 2023-10-28 12:27:38 2023-10-28 12:27:38 Outpatient SFA SFA [id number] Henry Quiles Ben 2023-10-25 15:44:11 2023-10-25 15:44:11 Outpatient SFA SFA [id number] Henry Quiles Ben 2023-10-25 00:00:00 2023-10-25 00:00:[address] [facility] [id number] Henry Contreras 2023-10-04 15:25:52 2023-10-04 15:25:[address] [facility] [id number] Henry Contreras 2023-10-01 00:00:00 2023-10-01 00:00:00 Telephone Indio Phelan [facility] 1.2.840.114 350.1.13.10 4.2.7.2.686 [id number] [facility] 2023-09-16 16:03:08 2023-09-16 16:03:[address] [facility] [id number] Henry Contreras 2023-08-01 10:00:49 2023-08-01 10:00:49 Outpatient [facility] [id number] Henry Quiles [place] 2023-07-23 14:20:00 2023-07-23 16:57:02 Outpatient INDIO OLIVEROS [facility] [id number] [facility] 2023-07-23 14:20:00 2023-07-23 16:57:02 Office [facility] 1.2.840.114 350.1.13.10 4.2.7.2.686 [id number] [facility] 2023-07-23 00:00:00 2023-07-23 00:00:00 Orders Only Doctor Unassigned, [place] [facility] 1..840.114 350.1.13.10 4.2.7.2.686 [id number] [facility] 2023-07-04 16:48:23 2023-07-04 16:48:[address] [facility] [id number] Henry Contreras 2023-06-18 10:35:36 2023-06-18 10:35:[address] [facility] [id number] Henry Contreras 2023-06-05 00:00:00 2023-06-05 00:00:00 Orders Only Doctor Unassigned, [place] [facility] 1.2.840.114 350.1.13.10 4.2.7.2.686 [id number] [facility] 2023-06-04 16:00:39 2023-06-04 16:00:[address] [facility] [id number] Henry Contreras 2023-05-24 15:38:52 2023-05-24 15:38:52 Outpatient [facility] [id number] Henry Contreras 2023-05-22 00:00:00 2023-05-22 00:00:00 Letter (Out) Neurology [facility] 1.2.840.114 350.1.13.10 4.2.7.2.686 [id number] [facility] 2023-05-20 00:00:00 2023-05-20 00:00:00 Orders Only Doctor Unassigned, [place] [facility] 1.2.840.114 350.1.13.10 4.2.7.2.686 [id number] [facility] 2023-05-17 15:07:14 2023-05-17 15:07:[address] [facility] [id number] Henry Contreras 2023-03-02 12:27:43 2023-03-02 12:27:[address] [facility] [id number] Henry Contreras 2023-01-09 17:11:26 2023-01-09 17:11:[address] [facility] [id number] Henry Contreras 2022-11-04 14:04:00 2022-11-05 11:09:00 Emergency E JESS PAIGE [facility] [id number] [facility] 2022-09-24 12:33:00 2022-09-24 12:51:00 Emergency Heri Snow [facility] 1..840.114 350.1.13.10 4.2.7.2.686 [id number] [facility] 2022-09-22 00:00:00 2022-09-22 00:00:00 Nurse Triage Madhavi Mcginnis [facility] 1..840.114 350.1.13.10 4.2.7.2.686 [id number] [facility] 2022-09-18 10:09:00 2022-09-19 14:28:00 Inpatient EM Marly Mendenhall [facility] OBSE [id number] [facility] 2022-09-16 22:50:00 2022-09-17 01:40:00 Emergency EM Guero Asim [facility] FABI [id number] [facility] 2022-09-14 14:52:00 2022-09-15 14:00:00 Inpatient EM Vladimir Forbes [facility] TELE [id number] [facility] 2022-09-13 09:34:00 2022-09-13 13:00:00 Emergency EM Brad Woodall [facility] FABI [id number] [facility] 2022-09-10 23:39:00 2022-09-11 11:28:00 Emergency EM Russel Sewell [facility] [id number] [facility] 2022-09-10 18:57:00 2022-09-10 20:20:00 Emergency Lisa Morfin [facility] 1..840.114 350.1.13.10 4.2.7.2.686 [id number] [facility] 2022-09-10 18:57:00 2022-09-10 20:20:00 Emergency SANDRITA CHÁVEZ [facility] ERT [id number] [facility] 2022-09-09 20:45:00 2022-09-09 22:46:00 Emergency X SANDRITA KEY [facility] ERT [id number] [facility] 2022-09-09 20:45:00 2022-09-09 22:46:00 Emergency Sandrita Key Hakeem [facility] 1.2.840.114 350.1.13.10 4.2.7.2.686 [id number] [facility] 2022-09-06 18:09:00 2022-09-07 00:51:00 Emergency X TAYO BOYD [facility] ERT [id number] [facility] 2022-09-06 18:09:00 2022-09-07 00:51:00 Emergency Tayo Boyd J [facility] 1.2.840.114 350.1.13.10 4.2.7.2.686 [id number] [facility] 2022-08-21 14:11:33 2022-08-21 14:11:33 Outpatient [facility] [id number] Henry Quiles [place] 2022-07-17 15:03:48 2022-07-17 15:03:48 Outpatient [facility] [id number] Henry Quiles [place] 2021-10-02 15:56:00 2021-10-02 19:00:00 Emergency X JAVED FRANK [facility] ERT [id number] [facility] 2021-10-02 15:56:00 2021-10-02 19:00:00 Emergency Javed Frank [facility] 1.2.840.114 350.1.13.10 4.2.7.2.686 [id number] [facility] 2021-05-05 13:22:00 2021-05-05 14:48:00 Emergency X DEON NUNEZ [facility] ERT [id number] [facility] 2021-05-05 13:22:00 2021-05-05 14:48:00 Emergency Deon Nunez [facility] 1.2.840.114 350.1.13.10 4.2.7.2.686 [id number] [facility] 2021-05-05 00:00:00 2021-05-05 00:00:00 Orders Only Doctor Unassigned, [place] [facility] 1.2.840.114 350.1.13.10 4.2.7.2.686 [id number] [facility] 2019-12-15 17:11:56 2019-12-15 18:04:00 Emergency Kp Gilliland [facility] 1.2.840.114 350.1.13.10 4.2.7.2.686 [id number] 2019-12-15 17:11:56 2019-12-15 18:04:00 Emergency Kp Gilliland [facility] 1.2.840.114 350.1.13.10 4.2.7.2.686 [id number] [facility] 2019-12-15 17:11:56 2019-12-15 17:11:56 Emergency X Kp GILLILAND [facility] ERT [id number] [facility] 2019-10-25 18:31:31 2019-10-25 19:21:00 Emergency Kristin Miller [facility] 1.2.840.114 350.1.13.10 4.2.7.2.686 [id number] 2019-10-25 18:31:31 2019-10-25 19:21:00 Emergency Kristin Miller [facility] 1.2.840.114 350.1.13.10 4.2.7.2.686 [id number] [facility] 2019-10-25 18:31:31 2019-10-25 18:31:31 Emergency X KRISTIN MILLER [facility] ERT [id number] [facility] 2019-08-13 13:30:00 2019-08-13 14:36:00 Emergency Floridalma Evans [facility] 1.2.840.114 350.1.13.10 4.2.7.2.686 [id number] 2019-08-13 13:30:00 2019-08-13 14:36:00 Emergency Floridalma Evans [facility] 1.2.840.114 350.1.13.10 4.2.7.2.686 [id number] [facility] 2019-08-13 13:30:00 2019-08-13 14:36:00 Emergency X FLORIDALMA EVANS [facility] ERT [id number] [facility] 2019-07-22 13:42:11 2019-07-22 19:02:00 Emergency Unknown, Attending Lisa Morfin [facility] 1.2.840.114 350.1.13.10 4.2.7.2.686 [id number] 2019-07-22 13:42:11 2019-07-22 19:02:00 Emergency X LISA MORFIN [facility] ERT [id number] [facility] 2019-07-22 13:42:11 2019-07-22 19:02:00 Emergency Unknown, Attending Lisa Morfin [facility] 1.2.840.114 350.1.13.10 4.2.7.2.686 [id number] [facility] 2019-07-13 20:17:19 2019-07-13 21:48:00 Emergency X HENRY OWEN [facility] ERT [id number] [facility] 2019-07-13 20:17:19 2019-07-13 21:48:00 Emergency Trena Henry [facility] 1.2.840.114 350.1.13.10 4.2.7.2.686 [id number] [facility] 2019-07-10 14:26:03 2019-07-10 16:33:00 Emergency X DEBBIE PAYTON [facility] ERT [id number] [facility] 2019-07-10 14:26:03 2019-07-10 16:33:00 Emergency Debbie Payton [facility] 1.2.840.114 350.1.13.10 4.2.7.2.686 [id number] [facility] 2019-07-04 19:09:02 2019-07-04 22:51:00 Emergency X LISA MORFIN [facility] ERT [id number] [facility] 2019-06-30 10:33:08 2019-06-30 13:10:00 Emergency X DEON NUNEZ [facility] ERT [id number] [facility] 2019-05-25 11:58:19 2019-05-25 15:37:00 Emergency X DEON NUNEZ [facility] ERT [id number] [facility] 2019-04-09 22:29:37 2019-04-09 23:28:00 Emergency X FLORIDALMA EVANS [facility] ERT [id number] [facility] 2019-01-21 18:38:01 2019-01-21 19:59:00 Emergency Le Ramirez [facility] 1.2.840.114 350.1.13.10 4.2.7.2.686 [id number] 2019-01-21 18:38:01 2019-01-21 19:59:00 Emergency Le Ramirez [facility] 1.2.840.114 350.1.13.10 4.2.7.2.686 [id number] [facility] Results Test Description Test Time Test Comments Results Result Co mments Source Henry Griffin TRISTAN [id number] 00:00:00* Test Item Value Reference Range Interpretation Comme nts TSH, THIRD GENERATION (test code = 2821) 3.970 UIU/ML Henry Daniel [id number] 04:20:00* Test Item Value Reference Range Interpretation Comme nts FT4 (test code = FT4) 1.05 ng/dL 0.78-2.19 T3 [id number] 04:20:00* Test Item Value Reference Range Interpretation Comme nts T3UP (test code = T3UP) 40.9 % 23.5-40.5 H Thyroxine (T4) free index in Serum or [id number] 04:19:00* Test Item Value Reference Range Interpretation Comme nts Thyroxine (T4) free index in Serum or Plasma (test code = 39772-7) 1.05 ng/dL 0.78-2.19 N [facility])Thyroid hormone uptake (T-uptake) in Serum or P 2023-11-24 04:18:00* Test Item Value Reference Range Interpretation Comme nts Thyroid hormone uptake (T-up take) in Serum or Plasma (test code = 36235-9) 40.9 % 23.5-40.5 H [facility])URINE DRUG [id number] 00:43:00* Test Item Value Reference Range Interpretation [...] abuse 5 panel - Urine by Screen uwupem4198-64-02 00:40:00 NegativeNegativeNegativeNegativeNegativeNegativeNegative[facility])[id number] 00:33:00* Test Item Value Reference Range Interpretation [...] /HPF 0-2 Urinalysis panel - Urine by Irty1833-56-37 00:33:00* Test Item Value Reference Range Interpretation Comme nts Ketones [Presence] in Urine (test code = 63554-4) 15 MG/DL NEG N pH of Urine (test code = 2756-5) 5.5 1 5.0-7.5 N Urobilinogen [Presence] in U rine (test code = 35234-1) 0.2 EU/DL 0.2-1.0 N Specific gravity of Urine (t est code = 2965-2) 1.013 1 1.0-1.025 N Leukocytes [Presence] in Uri ne sediment by Light microscopy (test code = 25311-0) 10 /HPF 0.0-5.0 H Erythrocytes [Presence] in U rine sediment by Light microscopy (test code = 55405-3) 2 /HPF 0.0-2.0 [id number] 22:47:00* Test Item Value Reference Range Interpretation Comme nts FOLATE (test code = FOLATE) 8.9 ng/mL 2.76-20.0 THYROID STIMULATION [id number] 22:47:00* Test Item Value Reference Range Interpretation Comme nts TSH (test code = TSH) 6.62 UIU/ML 0.465-4.68 H VITAMIN [id number] 22:47:00* Test Item Value Reference Range Interpretation Comme nts B12 (test code = B12) 880 pg/mL 239-931 Cobalamin (Vitamin B12) [Mass/volume] in Srnes4026-93-79 22:47:00* Test Item Value Reference Range Interpretation Comme nts Cobalamin (Vitamin B12) [Mass/volume] in Serum or Plasma (test code = 2132-9) 880 pg/mL 239.0-931.0 N [facility])Folate [Mass/volume] in Serum or Xqebsv3040-60-55 22:47:00* Test Item Value Reference Range Interpretation Comme nts Folate [Mass/volume] in Seru m or Plasma (test code = 2284-8) 8.9 ng/mL 2.76-20.0 N [facility])Thyrotropin in Serum or Jpjxxu6818-89-99 22:47:00* Test Item Value Reference Range Interpretation Comme nts Thyrotropin in Serum or Plas ma (test code = 88349-5) 6.62 UIU/ML 0.465-4.68 H [facility])ER SCREEN FOR HIV 1/ 22:46:00* Test Item Value Reference Range Interpretation Comme nts HIV 1/2 AB (test code = SCRN HIV) NEGATIVE NEGATIVE This test is us ed for SCREENING purposes only. All reactive results are prelimenary and confirmation results will follow. HIV 1+2 Ab [Units/volume] in Ytvbw0273-54-13 22:45[facility]HEPAT[facility]IS C ANTIBODY XMDKAK0146-84-84 22:28:00* Test Item Value Reference Range Interpretation Comme nts SCRN HCV (test code = SCRN HCV) NEGATIVE NEGATIVE Hepatitis C Anti body test is for screening purposes only. All reactives will be confirmed by additional testing. Hepatitis C virus Ab [Presence] in Iyoqj2537-14-60 22:27:00[facility] [place]B-HCG QUAL (KIT)2023-11-23 22:01:00* Test Item Value Reference Range Interpretation Comme nts HCGQUAL (test code = HCGQUAL) NEGATIVE NEGATIVE URINE: NEGATIVE = < 20 mIU/ML; POSITIVE= >/= 20 mIU/ML SERUM: NEGATIVE = < 10 mIU/ML; POSITIVE= >/= 10 mIU/ML SOURCE (test code = SOURCE) SERUM HCG INTERNAL POSITIVE CNTRL (test code = HCGIPC) PASS PASS HCG LOT # (test code = UHCGLOT) [id number] HCG EXPIRATION DATE (test code = UHCGEXP) Choriogonadotropin.beta subunit ( bifs8440-60-50 22:01:00* Test Item Value Reference Range Interpretation Comme nts Specimen source [Identifier] of Body fluid (test code = 09304-4) SERUM N Reagent Lot number (test cod e = 71823-3) 1 N [facility])CT HEAD W/O [id number] 22:00:00 [facility] : 1975 Sex: F[address] [address]SUOIVOOPLZ IMAGING REPORTPatient Name: JONATHAN JONESDate of Service: 61-86-7196Okn: 48 Sex: F Order #: [id number] Room: ERSDOB: 1975 X-Ray Number: [id number] Record Number: [id number] Hospital Number: [id number] Physician: LAWRENCE MEJIASOrdering Physician: LAWRENCE MEJIASPROCEDURE: CTHEAD [...] 21:59:03CT Head and Orbit - bilateral WO ofzztjse8838-95-05 21:59:03 ORDER 1400: CT HEAD W/O CONT (LOINC: 24026-8)ORDER DATE: November 24, 2023 12:50:00 AM [facility]CT ABDOMEN/PELVIS [id number] 21:54:00 [facility] : 1975 Sex: F[address] [id number] IMAGING REPORTPatient Name: JONATHAN JONESDate of Service: [id number]: 48 Sex: F Order #: [id number] Room: ERSDOB: 1975 X-Ray Number: [id number] Record Number: [id number] Hospital Number: [id number] Physician: LAWRENCE MEJIASOrdering Physician: LAWRENCE MEJIASPROCEDURE: CT [...] YUNIOR MCKEON 2023-11-23 21:53:03 CT Abdomen and [id number] 21:53:03ORDER 1500: CT ABDOMEN/PELVIS WITHOUT (LOINC: 03315-8)ORDER DATE: November 24, 2023 12:50:00 AM [facility])[id number] 21:31:00* Test Item Value Reference Range Interpretation [...] 70-99 Fasting glucos e normal <100 MG/DL- [employer] recommendation CALCIUM (test code = [...] of age is not validated by the [employer] and may not represent the patients true [...] should be used in the calculation". CREATINE [id number] 21:31:00* Test Item Value Reference Range Interpretation Comme nts CK (test code = CK) 115 U/L 30-135 BLOOD ALCOHOL (ETOH)2023-11-23 21:31:00* Test Item Value Reference Range Interpretation Comme nts ALCOHOL BLOOD LEVEL (test code = ALC BLD) <10 MG/DL 0-10 Results ar e to be used for medical purposes (treatment) only. Not intended for non medical purposes. Ethanol [Mass/volume] in [id number] 21:30:00* Test Item Value Reference Range Interpretation Comme nts Ethanol [Mass/volume] in Blo od (test code = 5640-8) <10 0.0-10.0 [facility] [place])Creatine kinase isoenzymes [interpretation] in 2023-11-23 21:30:00* Test Item Value Reference Range Interpretation Comme nts Creatine kinase isoenzymes [interpretation] in Serum or Plasma Narrative (test code = 66253-0) 115 U/L 30.0-135.0 [facility] [place])Comprehensive metabolic 2000 panel [...] total [Moles/volume] in Blood (test code = 22364-1) 24 MMOL/L 22.0-30.0 N Urea nitrogen [Mass/volume] in Serum or Plasma (test code = 3094-0) 16 MG/DL 7.0-17.0 N Creatinine [Mass/volume] in Blood (test code = 55464-4) 0.6 MG/DL 0.7-1.2 L Glucose [Mass/volume] in Blood (test code = 2339-0) 80 MG/DL 70.0-99.0 N Calcium [Mass/volume] in Serum or Plasma (test code = 40659-0) 10.3 MG/DL 8.4-10.2 H Protein [Mass/volume] in Serum or Plasma (test code = 2885-2) 9.9 G/DL 6.3-8.2 H Albumin [Presence] in Serum or Plasma (test code = 78521-8) 4.7 G/DL 3.5-5.0 N Bilirubin direct and total panel [Mass/volume] - Serum or Plasma (test code = 98612-1) 0.8 MG/DL 0.2-1.3 N Aspartate aminotransferase [Enzymatic [...] 50 percent [- Reported] (test code = 21207-4) 113.0 mL/min/1.73m2 N Anion gap in Serum or Plasma (test code = 75642-9) 13 mmol/L 4.0-12.0 H [facility])[id number] 21:15:00* Test Item Value Reference Range Interpretation [...] 1.2-7.2 CBC W Auto Differential panel - [id number] 21:15:00* Test Item Value Reference Range Interpretation Comme nts Leukocytes other [Identifier ] in Blood by Automated count (test code = 87859-3) 4.5 K/UL 3.5-10.9 N Erythrocytes [#/volume] in B lood (test code = 49903-8) 4.91 M/UL 4.0-5.0 N Hemoglobin A/Hemoglobin.tota l in Blood (test code = 4546-8) 13.8 G/DL 11.5-15.5 N Hematocrit [Volume Fraction] of Blood (test code = 36236-3) 42.4 % 34.0-46.0 N Erythrocyte mean corpuscular volume [Entitic volume] (test code = 24957-4) 86.4 FL 80.0-98.0 N Erythrocyte mean corpuscular hemoglobin [Entitic mass] (test code = 60306-3) 28.1 PG 28.0-32.0 N Erythrocyte mean corpuscular hemoglobin concentration [Mass/volume] (test code = 37439-5) 32.5 G/DL 32.5-36.5 N Erythrocyte distribution wid th [Ratio] (test code = 46845-1) 14.9 % 11.5-14.5 H Platelets panel - Blood by Automated count (test code = 76219-4) 124 K/UL 150.0-450.0 L Platelet mean volume [Entiti c volume] in Blood by Automated count (test code = 28666-1) 10.0 FL 7.4-10.4 N Neutrophils.segmented/100 leukocytes in Blood (test code = 56007-8) 53.3 % 40.0-75.0 N Lymphocytes Variant/100 leuk ocytes in Blood (test code = 55376-7) 33.9 % 24.0-44.0 N Lymphocytes+Monocytes/100 leukocytes in Blood (test code = 4662-3) 10.0 % 0.0-13.0 N Eosinophils [#/volume] in Bl ood (test code = 64839-9) 2.2 % 0.0-4.0 N Basophils [#/volume] in Bloo d (test code = 54361-9) 0.4 % 0.0-2.0 N Immature granulocytes/100 leukocytes in Blood (test code = 95619-1) 0.2 % 0.0-1.0 N Nucleated erythrocytes [#/vo lume] in Blood (test code = 15017-3) 0 /100 WBC N Neutrophils [#/volume] in Bl ood (test code = 34041-9) 2.4 K/UL 1.2-7.2 N [facility]PAP TEST, THINPREP, [id number] 16:02:24* Test Item Value Reference Range Interpretation Comme nts SOURCE: (test code = 8001) Cervical/Endoce rvical SLIDES: (test code = 8011) 1 LMP: (test code = 8021) SEE NOTE POST MENOPAUSAL SPECIMEN ADEQUACY: (test code = 56426) (NOTE) Satisfactory for evaluation. Endocervical cells/transformation zone component present. INTERPRETATION: (test code = 46432) NILM/NO EPITH. ABNORMALITY;SEE BELOW --- - NEGATIVE FOR INTRAEPITHELIAL LESION OR MALIGNANCY (NILM) ---- NATURAL RESOURCES MANAGER : (test code = 8101) Jami Smalls LOCATION: (test code = 58949) (NOTE) Specimens proces sed and interpreted at [facility], [address] [place], [place] [id number], , CLIA: [id number] CPT: (test code = 8140) (NOTE) 65060 UNLESS OTH ERWISE INDICATED, COMPUTER AIDED AND NATURAL RESOURCES MANAGER SCREENING PERFORMED. The Pap test is a screening test with an inherent, but low probability of error. Your patient should be reminded to consult you immediately if she experiences any suspicious signs or symptoms, regardless of her Pap test result. An alternate report format containing images or consolidated prior Pap history is available as applicable. HPV HIGH RISK WITH GENOTYPE, [id number] 15:53:52* Test Item Value Reference Range Interpretation Comme nts HPV HIGH RISK INTERP (test code = 95323) NEGATIVE NEGATIVE HPV 16 (test code = 14135) NEGATIVE HPV 18 (test code = 46059) NEGATIVE HPV, HR, OTHER GENOTYPES (test code = 27482) NEGATIVE Testing methodol ian is real-time PCR [...] TESTING PERFORMED AT [facility] [address] [place] [address] WINDOWS PHONE DEVELOPER: JATIN FELIPE M.D. CLIA NUMBER [id number] [facility] [place]. [id number] HPV HIGH RISK WITH GENOTYPE, [id number] 00:00:00* Test Item Value Reference Range Interpretation Comme nts HPV HIGH RISK INTERP (test c ode = 91116) NEGATIVE HPV 16 (test code = 81125) NEGATIVE HPV 18 (test code = 79327) NEGATIVE HPV, HR, OTHER GENOTYPES (te st code = 11841) NEGATIVE PDFE (test code = PDFReport) PDF Henry ContrerasPAP TEST, THINPREP, [id number] 00:00:00* Test Item Value Reference Range Interpretation Comme nts SOURCE: (test code = 8001) Cervical/Endocervical SLIDES: (test code = 8011) 1 LMP: (test code = 8021) SEE NOTE SPECIMEN ADEQUACY: (test code = 81054) (NOTE) INTERPRETATION: (test code = 53783) NILM/NO EPITH. ABNORMALITY;SEE BELOW NATURAL RESOURCES MANAGER: (test code = 8101) Jami Smalls LOCATION: (test code = 69703) (NOTE) CPT: (test code = 8140) (NOTE) Henry ContrerasHPV HIGH RISK WITH GENOTYPE, [id number] 00:00:00* Test Item Value Reference Range Interpretation Comme nts HPV HIGH RISK INTERP (test c ode = 65616) NEGATIVE HPV 16 (test code = 72508) NEGATIVE HPV 18 (test code = 09569) NEGATIVE HPV, HR, OTHER GENOTYPES (te st code = 20327) NEGATIVE PDFE (test code = PDFReport) PDF Henry Quiles AustinPAP TEST, THINPREP, [id number] 00:00:00* Test Item Value Reference Range Interpretation Comme nts SOURCE: (test code = 8001) Cervical/Endocervical SLIDES: (test code = 8011) 1 LMP: (test code = 8021) SEE NOTE SPECIMEN ADEQUACY: (test code = 74132) (NOTE) INTERPRETATION: (test code = 52022) NILM/NO EPITH. ABNORMALITY;SEE BELOW NATURAL RESOURCES MANAGER: (test code = 8101) [facility] LOCATION: (test code = 79908) (NOTE) CPT: (test code = 8140) (NOTE) Henry Quiles AustinHPV HIGH RISK WITH GENOTYPE, [id number] 00:00:00* Test Item Value Reference Range Interpretation Comme nts HPV HIGH RISK INTERP (test c ode = 85800) NEGATIVE HPV 16 (test code = 34051) NEGATIVE HPV 18 (test code = 62469) NEGATIVE HPV, HR, OTHER GENOTYPES (te st code = 95040) NEGATIVE PDFE (test code = PDFReport) PDF Henry Quiles AustinPAP TEST, THINPREP, [id number] 00:00:00* Test Item Value Reference Range Interpretation Comme nts SOURCE: (test code = 8001) Cervical/Endocervical SLIDES: (test code = 8011) 1 LMP: (test code = 8021) SEE NOTE SPECIMEN ADEQUACY: (test code = 00100) (NOTE) INTERPRETATION: (test code = 52856) NILM/NO EPITH. ABNORMALITY;SEE BELOW NATURAL RESOURCES MANAGER: (test code = 8101) [facility] LOCATION: (test code = 37465) (NOTE) CPT: (test code = 8140) (NOTE) Henry Quiles AustinHPV HIGH RISK WITH GENOTYPE, [id number] 00:00:00* Test Item Value Reference Range Interpretation Comme nts HPV HIGH RISK INTERP (test c ode = 32790) NEGATIVE HPV 16 (test code = 66237) NEGATIVE HPV 18 (test code = 44053) NEGATIVE HPV, HR, OTHER GENOTYPES (te st code = 71263) NEGATIVE PDFE (test code = PDFReport) PDF Henry F AustinPAP TEST, THINPREP, [id number] 00:00:00* Test Item Value Reference Range Interpretation Comme nts SOURCE: (test code = 8001) Cervical/Endocervical SLIDES: (test code = 8011) 1 LMP: (test code = 8021) SEE NOTE SPECIMEN ADEQUACY: (test code = 27098) (NOTE) INTERPRETATION: (test code = 81296) NILM/NO EPITH. ABNORMALITY;SEE BELOW NATURAL RESOURCES MANAGER: (test code = 8101) Jami Smalls LOCATION: (test code = 36774) (NOTE) CPT: (test code = 8140) (NOTE) Henry ContrerasPAP TEST, THINPREP, IMAGED [ADDED]2023-10-10 00:00:00* Test Item Value Reference Range Interpretation Comme nts SOURCE: (test code = 8001) Unspecified SLIDES: (test code = 8011) 2 LMP: (test code = 8021) NOT GIVEN SPECIMEN ADEQUACY: (test code = 68343) (NOTE) INTERPRETATION: (test code = 60802) UNSATISFACTORY; SEE BELOW OTHER COMMENTS: (test code = 8081) (NOTE) NATURAL RESOURCES MANAGER: (test code = 8101) Jose Bustillos QC TECHNOLOGIST: (test code = 8111) Jason Whitman,[facility](ASCP),[facility] LOCATION: (test code = 23350) (NOTE) CPT: (test code = 8140) (NOTE) Henry ContrerasHPV HIGH RISK IF ASC/LSIL, THINPREP [ADDED]2023-10-10 00:00:00* Test Item Value Reference Range Interpretation Comme nts HPV HIGH RISK IF ASC/LSIL, THINPREP (test code = 07047) CRITERIA NOT MET Henry ContrerasPAP TEST, THINPREP, IMAGED [ADDED]2023-10-10 00:00:00* Test Item Value Reference Range Interpretation Comme nts SOURCE: (test code = 8001) Unspecified SLIDES: (test code = 8011) 2 LMP: (test code = 8021) NOT GIVEN SPECIMEN ADEQUACY: (test code = 77022) (NOTE) INTERPRETATION: (test code = 43620) UNSATISFACTORY; SEE BELOW OTHER COMMENTS: (test code = 8081) (NOTE) NATURAL RESOURCES MANAGER: (test code = 8101) Jose Bustillos QC TECHNOLOGIST: (test code = 8111) Jason WhitmanSCT(ASCP),[facility] LOCATION: (test code = 42869) (NOTE) CPT: (test code = 8140) (NOTE) Henry Quiles AustinHPV HIGH RISK IF ASC/LSIL, THINPREP [ADDED]2023-10-10 00:00:00* Test Item Value Reference Range Interpretation Comme nts HPV HIGH RISK IF ASC/LSIL, THINPREP (test code = 25807) CRITERIA NOT MET Henry Quiles AustinPAP TEST, THINPREP, IMAGED [ADDED]2023-10-10 00:00:00* Test Item Value Reference Range Interpretation Comme nts SOURCE: (test code = 8001) Unspecified SLIDES: (test code = 8011) 2 LMP: (test code = 8021) NOT GIVEN SPECIMEN ADEQUACY: (test code = 95313) (NOTE) INTERPRETATION: (test code = 75594) UNSATISFACTORY; SEE BELOW OTHER COMMENTS: (test code = 8081) (NOTE) NATURAL RESOURCES MANAGER: (test code = 8101) Jose Bustillos QC TECHNOLOGIST: (test code = 8111) Jason WhitmanSCT(ASCP),[facility] LOCATION: (test code = 02638) (NOTE) CPT: (test code = 8140) (NOTE) Henry Quiles AustinHPV HIGH RISK IF ASC/LSIL, THINPREP [ADDED]2023-10-10 00:00:00* Test Item Value Reference Range Interpretation Comme nts HPV HIGH RISK IF ASC/LSIL, THINPREP (test code = 49055) CRITERIA NOT MET Henry Quiles AustinPAP TEST, THINPREP, IMAGED [ADDED]2023-10-10 00:00:00* Test Item Value Reference Range Interpretation Comme nts SOURCE: (test code = 8001) Unspecified SLIDES: (test code = 8011) 2 LMP: (test code = 8021) NOT GIVEN SPECIMEN ADEQUACY: (test code = 57245) (NOTE) INTERPRETATION: (test code = 96789) UNSATISFACTORY; SEE BELOW OTHER COMMENTS: (test code = 8081) (NOTE) NATURAL RESOURCES MANAGER: (test code = 8101) Jose Bustillos QC TECHNOLOGIST: (test code = 8111) Jason Euperio,[facility]CT(ASCP),[facility] LOCATION: (test code = 70978) (NOTE) CPT: (test code = 8140) (NOTE) Henry Quiles AustinHPV HIGH RISK IF ASC/LSIL, THINPREP [ADDED]2023-10-10 00:00:00* Test Item Value Reference Range Interpretation Comme nts HPV HIGH RISK IF ASC/LSIL, THINPREP (test code = 14696) CRITERIA NOT MET Henry Quiles AustinGONORRHEA, NAAT, THINPREP [ADDED]2023-10-08 00:00:00* Test Item Value Reference Range Interpretation Comme nts GONORRHEA, NAAT, THINPREP (t est code = 01760) NEGATIVE Henry Quiles AustinCHLAMYDIA, NAAT, THINPREP [ADDED]2023-10-08 00:00:00* Test Item Value Reference Range Interpretation Comme nts CHLAMYDIA, NAAT, THINPREP (t est code = 83717) NEGATIVE PDFE (test code = PDFReport) PDF Henry Quiles AustinGONORRHEA, NAAT, THINPREP [ADDED]2023-10-08 00:00:00* Test Item Value Reference Range Interpretation Comme nts GONORRHEA, NAAT, THINPREP (t est code = 92207) NEGATIVE Henry Quiles AustinCHLAMYDIA, NAAT, THINPREP [ADDED]2023-10-08 00:00:00* Test Item Value Reference Range Interpretation Comme nts CHLAMYDIA, NAAT, THINPREP (t est code = 66111) NEGATIVE PDFE (test code = PDFReport) PDF Henry Quiles AustinGONORRHEA, NAAT, THINPREP [ADDED]2023-10-08 00:00:00* Test Item Value Reference Range Interpretation Comme nts GONORRHEA, NAAT, THINPREP (t est code = 08606) NEGATIVE Henry Quiles AustinCHLAMYDIA, NAAT, THINPREP [ADDED]2023-10-08 00:00:00* Test Item Value Reference Range Interpretation Comme nts CHLAMYDIA, NAAT, THINPREP (t est code = 25777) NEGATIVE PDFE (test code = PDFReport) PDF Henry Quiles AustinGONORRHEA, NAAT, THINPREP [ADDED]2023-10-08 00:00:00* Test Item Value Reference Range Interpretation Comme nts GONORRHEA, NAAT, THINPREP (t est code = 91281) NEGATIVE Henry ContrerasCHLAMYDIA, NAAT, THINPREP [ADDED]2023-10-08 00:00:00* Test Item Value Reference Range Interpretation Comme nts CHLAMYDIA, NAAT, THINPREP (t est code = 19701) NEGATIVE PDFE (test code = PDFReport) PDF TRISTAN Grover [id number] 08:14:44* Test Item Value Reference Range Interpretation Comme nts TSH, THIRD GENERATION (test code = 2821) 5.200 UIU/ML 0.400-4.100 H UNLESS OTHERWISE INDICATED, ALL TESTING PERFORMED AT [facility] [address] [place] [address] WINDOWS PHONE DEVELOPER: AJTIN FELIPE M.D. CLIA NUMBER [id number] [facility] [place]. [id number] 00:00:00* Test Item Value Reference Range Interpretation Comme nts TSH, THIRD GENERATION (test code = 2821) 5.200 UIU/ML Henry [id number] 00:00:00* Test Item Value Reference Range Interpretation Comme nts TSH, THIRD GENERATION (test code = 2821) 5.200 UIU/ML Henry [id number] 00:00:00* Test Item Value Reference Range Interpretation Comme nts TSH, THIRD GENERATION (test code = 2821) 5.200 UIU/ML Henry [id number] 00:00:00* Test Item Value Reference Range Interpretation Comme nts TSH, THIRD GENERATION (test code = 2821) 5.200 UIU/ML TRISTAN Grover [id number] 23:53:27* Test Item Value Reference Range Interpretation Comme nts TSH, THIRD GENERATION (test code = 2821) 11.100 UIU/ML 0.400-4.100 H COMPREHENSIVE METABOLIC [id number] 23:46:03* Test Item Value Reference Range Interpretation Comme nts GLUCOSE (test code = 2217) 97 MG/DL 70-99 BUN (test code = 2208) 7 MG/DL 6-20 CREATININE (test code = 2214) 0.61 MG/DL 0.60-1.30 eGFR (2020 CKD-EPI) (test code = 15721) 110 ML/MIN/1.73 >60 CALC BUN/CREAT (test code [...] 13 U/L 5-40 CBC W/AUTO DIFF WITH [id number] 08:48:44* Test Item Value Reference Range Interpretation [...] 0.00-0.10 ABS NUCLEATED RBCS (test code = 56598) 0.00 K/UL 0.00-0.11 UNLESS OTHER MONTOYA INDICATED, ALL TESTING PERFORMED AT [facility] [address] [place] [address] WINDOWS PHONE DEVELOPER: JATIN FELIPE M.D. CLIA NUMBER [id number] [facility] [place] [place]. [id number] 00:00:00* Test Item Value Reference Range Interpretation Comme nts TSH, THIRD GENERATION (test code = 2821) 11.100 UIU/ML Henry ContrerasTRISTAR [facility] W/AUTO [id number] 00:00:00* Test Item Value Reference Range Interpretation [...] ABS NUCLEATED RBCS (test cod e = 04353) 0.00 K/UL Henry ContrerasCOMPREHENSIVE METABOLIC [id number] 00:00:00* Test Item Value Reference Range Interpretation Comme nts GLUCOSE (test code = 2217) 97 MG/DL BUN (test code = 2208) 7 MG/DL CREATININE (test code = 2214) 0.61 MG/DL eGFR (2020 CKD-EPI) (test code = 99913) 110 ML/MIN/1.73 CALC BUN/CREAT (test code = [...] (test code = 2219) 13 U/L Henry [id number] 00:00:00* Test Item Value Reference Range Interpretation Comme nts TSH, THIRD GENERATION (test code = 2821) 11.100 UIU/ML Henry ContrerasCBC W/AUTO [id number] 00:00:00* Test Item Value Reference Range Interpretation [...] ABS NUCLEATED RBCS (test cod e = 10997) 0.00 K/UL Henry ContrerasCOMPREHENSIVE METABOLIC [id number] 00:00:00* Test Item Value Reference Range Interpretation Comme nts GLUCOSE (test code = 2217) 97 MG/DL BUN (test code = 2208) 7 MG/DL CREATININE (test code = 2214) 0.61 MG/DL eGFR (2020 CKD-EPI) (test code = 66390) 110 ML/MIN/1.73 CALC BUN/CREAT (test code = [...] (test code = 2219) 13 U/L Henry [id number] 00:00:00* Test Item Value Reference Range Interpretation Comme nts TSH, THIRD GENERATION (test code = 2821) 11.100 UIU/ML Henry ContrerasCBC W/AUTO [id number] 00:00:00* Test Item Value Reference Range Interpretation [...] ABS NUCLEATED RBCS (test cod e = 74931) 0.00 K/UL Henry ContrerasCOMPREHENSIVE METABOLIC [id number] 00:00:00* Test Item Value Reference Range Interpretation Comme nts GLUCOSE (test code = 2217) 97 MG/DL BUN (test code = 2208) 7 MG/DL CREATININE (test code = 2214) 0.61 MG/DL eGFR (2020 CKD-EPI) (test code = 35300) 110 ML/MIN/1.73 CALC BUN/CREAT (test code = [...] (test code = 2219) 13 U/L Henry [id number] 00:00:00* Test Item Value Reference Range Interpretation Comme nts TSH, THIRD GENERATION (test code = 2821) 11.100 UIU/ML Henry ContrerasCBC W/AUTO [id number] 00:00:00* Test Item Value Reference Range Interpretation [...] ABS NUCLEATED RBCS (test cod e = 34883) 0.00 K/UL Henry ContrerasCOMPREHENSIVE METABOLIC [id number] 00:00:00* Test Item Value Reference Range Interpretation Comme nts GLUCOSE (test code = 2217) 97 MG/DL BUN (test code = 2208) 7 MG/DL CREATININE (test code = 2214) 0.61 MG/DL eGFR (2020 CKD-EPI) (test code = 61528) 110 ML/MIN/1.73 CALC BUN/CREAT (test code = [...] (test code = 2219) 13 U/L Henry [id number] 01:13:06* Test Item Value Reference Range Interpretation Comme nts TRANSFERRIN (test code = 4936) 315 MG/DL 200-360 UNLESS OTHERWISE INDICATED, ALL TESTING PERFORMED AT [facility] [address] [place] [address] WINDOWS PHONE DEVELOPER: JATIN FELIPE M.D. CLIA NUMBER [id number] [facility] [place]. [id number] LIPID [id number] 01:12:48* Test Item Value Reference Range Interpretation [...] SPECIMENS. FOR MOREINFORMATION, SEE CLIENT ANNOUNCEMENT AT [email or web address] RISK RATIO LDL/HDL (test code = 2238) 1.34 RATIO <3.22 COMPREHENSIVE METABOLIC [id number] 01:12:48* Test Item Value Reference Range Interpretation Comme nts GLUCOSE (test code = 2217) 92 MG/DL 70-99 BUN (test code = 2208) 15 MG/DL 6-20 CREATININE (test code = 2214) 0.65 MG/DL 0.60-1.30 eGFR (2020 CKD-EPI) (test code = 10030) 108 ML/MIN/1.73 >60 CALC BUN/CREAT (test code [...] 7.8 G/DL 6.1-8.3 ALBUMIN (test code = 1) 3.9 G/DL 3.5-5.2 CALC GLOBULIN (test code = 2239) 3.9 G/DL 1.9-3.7 H CALC A/G RATIO (test code = 4) 1.0 RATIO 1.0-2.6 BILIRUBIN, TOTAL (test code [...] IRON BINDING CAPACITY AND IRON AND % [id number] 01:12:48* Test Item Value Reference Range Interpretation Comme nts IRON, SERUM (test code = 2221) 51 UG/DL 37-145 UNSATURATED IBC (test code = ) 356 UG/DL 112-347 H CALC TOTAL IBC (test code = 2076) 407 UG/DL 250-450 CALC % IRON SAT (test code = 2078) 13 % 20-50 L [id number] 00:59:24* Test Item Value Reference Range Interpretation Comme nts FERRITIN (test code = 2074) 20 NG/ML 13-200 LIPID [id number] 00:00:00* Test Item Value Reference Range Interpretation Comme nts CHOLESTEROL (test code = 2209) 191 MG/DL TRIGLYCERIDES (test code = 2) 89 MG/DL HDL CHOLESTEROL (test code = 0) 74 MG/DL CALC LDL CHOL (test code = 7) 99 MG/DL RISK RATIO LDL/HDL (test cod e = 2238) 1.34 RATIO Henry F AustinCOMPREHENSIVE METABOLIC [id number] 00:00:00* Test Item Value Reference Range Interpretation [...] 8) 4.2 MEQ/L CHLORIDE (test code = 5) 99 MEQ/L CARBON DIOXIDE (test code = [...] AustinIRON BINDING CAPACITY AND IRON AND % [id number] 00:00:00* Test Item Value Reference Range Interpretation Comme nts IRON, SERUM (test code = 2221) 51 UG/DL UNSATURATED IBC (test code = 05671) 356 UG/DL CALC TOTAL IBC (test code = 2076) 407 UG/DL CALC % IRON SAT (test code = 2078) 13 % Henry Quiles [id number] 00:00:00* Test Item Value Reference Range Interpretation Comme nts FERRITIN (test code = 2074) 20 NG/ML Henry [id number] 00:00:00* Test Item Value Reference Range Interpretation Comme nts TRANSFERRIN (test code = 4936) 315 MG/DL Henry Quiles AustinLIPID [id number] 00:00:00* Test Item Value Reference Range Interpretation Comme nts CHOLESTEROL (test code = 2209) 191 MG/DL TRIGLYCERIDES (test code = 2) 89 MG/DL HDL CHOLESTEROL (test code = 2219) 74 MG/DL CALC LDL CHOL (test code = 2236) 99 MG/DL RISK RATIO LDL/HDL (test cod e = 2238) 1.34 RATIO Henry ContrerasCOMPREHENSIVE METABOLIC [id number] 00:00:00* Test Item Value Reference Range Interpretation Comme nts GLUCOSE (test code = 2217) 92 MG/DL BUN (test code = 2208) 15 MG/DL CREATININE (test code = 2214) 0.65 MG/DL eGFR (2020 CKD-EPI) (test code = ) 108 ML/MIN/1.73 CALC BUN/CREAT (test code = 2235) 23 RATIO SODIUM (test code = 223) 135 MEQ/L POTASSIUM (test code = 2228) 4.2 MEQ/L CHLORIDE (test code = 2215) 99 MEQ/L CARBON DIOXIDE (test code = 2206) 24 MEQ/L CALCIUM (test code = 2209) 9.8 MG/DL PROTEIN, TOTAL (test code = 2228) 7.8 G/DL ALBUMIN (test code = 2201) [...] ContrerasIRON BINDING CAPACITY AND IRON AND % [id number] 00:00:00* Test Item Value Reference Range Interpretation Comme nts IRON, SERUM (test code = 2221) 51 UG/DL UNSATURATED IBC (test code = 33192) 356 UG/DL CALC TOTAL IBC (test code = 2076) 407 UG/DL CALC % IRON SAT (test code = 2078) 13 % Henry [id number] 00:00:00* Test Item Value Reference Range Interpretation Comme nts FERRITIN (test code = 2074) 20 NG/ML Henry Quiles [id number] 00:00:00* Test Item Value Reference Range Interpretation Comme nts TRANSFERRIN (test code = 4936) 315 MG/DL Henry ContrerasLIPID [id number] 00:00:00* Test Item Value Reference Range Interpretation Comme nts CHOLESTEROL (test code = 2210) 191 MG/DL TRIGLYCERIDES (test code = 2232) 89 MG/DL HDL CHOLESTEROL (test code = 2220) 74 MG/DL CALC LDL CHOL (test code = 2237) 99 MG/DL RISK RATIO LDL/HDL (test cod e = 2238) 1.34 RATIO Henry ContrerasCOMPREHENSIVE METABOLIC [id number] 00:00:00* Test Item Value Reference Range Interpretation Comme nts GLUCOSE (test code = 2217) 92 MG/DL BUN (test code = 2208) 15 MG/DL CREATININE (test code = 2214) 0.65 MG/DL eGFR (2020 CKD-EPI) (test code = 06088) 108 ML/MIN/1.73 CALC BUN/CREAT (test code = [...] ContrerasIRON BINDING CAPACITY AND IRON AND % [id number] 00:00:00* Test Item Value Reference Range Interpretation Comme nts IRON, SERUM (test code = 2221) 51 UG/DL UNSATURATED IBC (test code = ) 356 UG/DL CALC TOTAL IBC (test code = 2076) 407 UG/DL CALC % IRON SAT (test code = 2078) 13 % Henry [id number] 00:00:00* Test Item Value Reference Range Interpretation Comme nts FERRITIN (test code = 2074) 20 NG/ML Henry Quiles [id number] 00:00:00* Test Item Value Reference Range Interpretation Comme nts TRANSFERRIN (test code = 4936) 315 MG/DL Henry ContrerasLIPID [id number] 00:00:00* Test Item Value Reference Range Interpretation Comme nts CHOLESTEROL (test code = 2210) 191 MG/DL TRIGLYCERIDES (test code = 2232) 89 MG/DL HDL CHOLESTEROL (test code = 2220) 74 MG/DL CALC LDL CHOL (test code = 2237) 99 MG/DL RISK RATIO LDL/HDL (test cod e = 2238) 1.34 RATIO Henry ContrerasCOMPREHENSIVE METABOLIC [id number] 00:00:00* Test Item Value Reference Range Interpretation Comme nts GLUCOSE (test code = 2217) 92 MG/DL BUN (test code = 2208) 15 MG/DL CREATININE (test code = 2214) 0.65 MG/DL eGFR (2020 CKD-EPI) (test code = 39754) 108 ML/MIN/1.73 CALC BUN/CREAT (test code = [...] ContrerasIRON BINDING CAPACITY AND IRON AND % [id number] 00:00:00* Test Item Value Reference Range Interpretation Comme nts IRON, SERUM (test code = 2221) 51 UG/DL UNSATURATED IBC (test code = 66998) 356 UG/DL CALC TOTAL IBC (test code = 2076) 407 UG/DL CALC % IRON SAT (test code = 2078) 13 % Henry [id number] 00:00:00* Test Item Value Reference Range Interpretation Comme shaina FERRITIN (test code = 2075) 20 NG/ML Henry [id number] 00:00:00* Test Item Value Reference Range Interpretation Comme shaina TRANSFERRIN (test code = 4936) 315 MG/DL Henry ContrerasHEMOGLOBIN [id number] 03:08:40* Test Item Value Reference Range Interpretation Comme nts HEMOGLOBIN A1c (test code = 23574) 5.5 % 4.2-5.6 CBC W/AUTO DIFF WITH [id number] 02:29:36* Test Item Value Reference Range Interpretation [...] = 1065) 0.0 /100 WBC'S See_Comment [Automated [employer]] The system which generated this result [...] 0.00-0.10 ABS NUCLEATED RBCS (test code = 86995) 0.00 K/UL 0.00-0.11 CBC W/AUTO [id number] 00:00:00* Test Item Value Reference Range Interpretation [...] ABS NUCLEATED RBCS (test cod e = 21319) 0.00 K/UL Henry F AustinHEMOGLOBIN [id number] 00:00:00* Test Item Value Reference Range Interpretation Comme nts HEMOGLOBIN A1c (test code = 42125) 5.5 % Henry Quiles AustinCBC W/AUTO [id number] 00:00:00* Test Item Value Reference Range Interpretation [...] ABS NUCLEATED RBCS (test cod e = 74770) 0.00 K/UL Henry ContrerasHEMOGLOBIN [id number] 00:00:00* Test Item Value Reference Range Interpretation Comme nts HEMOGLOBIN A1c (test code = 85471) 5.5 % Henry Quiles AustinCBC W/AUTO [id number] 00:00:00* Test Item Value Reference Range Interpretation [...] ABS NUCLEATED RBCS (test cod e = 09732) 0.00 K/UL Henry ContrerasHEMOGLOBIN [id number] 00:00:00* Test Item Value Reference Range Interpretation Comme nts HEMOGLOBIN A1c (test code = 58692) 5.5 % Henry ContrerasCBC W/AUTO [id number] 00:00:00* Test Item Value Reference Range Interpretation [...] ABS NUCLEATED RBCS (test cod e = 06933) 0.00 K/UL Henry ContrerasHEMOGLOBIN [id number] 00:00:00* Test Item Value Reference Range Interpretation Comme nts HEMOGLOBIN A1c (test code = 17795) 5.5 % Henry ContrerasDRUGS OF [id number] 05:03:00* Test Item Value Reference Range Interpretation [...] 200 ng/mL Opiates 300 ng/mL URINALYSIS WITH [id number] 04:56:00* Test Item Value Reference Range Interpretation [...] (test code = USPERM) /HPF NONE URINE [id number] 04:53:00* Test Item Value Reference Range Interpretation [...] the FDA and the [employer] (CAP) are more stringent than those required for this test. Therefore, the result should be interpreted with caution and close attention to other clinical and epidemiological data [id number] 16:00:00* Test Item Value Reference Range Interpretation Comme nts SALICYLATE (test code = 94B) <3.0 mg/dL 15.0-30.0 L LIVER [id number] 15:49:00* Test Item Value Reference Range Interpretation [...] code = 30A) 16 IU/L See_Comment [Automated [employer] ge] The system which generated this result transmitted reference range: <=33. The reference range was not used to interpret this result as normal/abnormal. ALT (test code = 31A) <7 IU/L 10-49 L [id number] 15:48:00* Test Item Value Reference Range Interpretation Comme nts ACETAMINPH (test code = 94M) <0.2 mg/dL 1.2-2.5 L ALCOHOL BLOOD (ETOH)2022-11-04 15:48:00* Test Item Value Reference Range Interpretation Comme nts ETOH (test code = HALC) ETHANOL The result is to be used only for medical purposes ALCOHOL (test code = 56A) <10 mg/dL See_Comment [Automated [employer] ge] The system which generated this result transmitted reference range: <=10. The reference range was not used to interpret this result as normal/abnormal. 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 Old healed fractures of the distal tibia and fibular noted.Soft tissues: Unremarkable.IMPRESSION: No acute findings.Electronically signed by: Nikko Santiago MD 11/04/2022 3:10 PM CDT 1308MH1CFDIGJK BEDSIDE [id number] 11:51:00* Test Item Value Reference Range Interpretation Comme nts GLUCOSE BEDSIDE TESTING (karen t code = GLUBED) 79 MG/DL 70-119 N GLUCOSE BEDSIDE [id number] 06:23:00* Test Item Value Reference Range Interpretation Comme nts GLUCOSE BEDSIDE TESTING (karen t code = GLUBED) 80 MG/DL 70-119 N BASIC METABOLIC [id number] 05:12:00* Test Item Value Reference Range Interpretation [...] 2.0 <2.0 indicates None DetectedPerformed At: [facility] [address] [id number] Michael Reeves MD Ph:[phone] GLUCOSE BEDSIDE [id number] 19:51:00* Test Item Value Reference Range Interpretation Comme nts GLUCOSE BEDSIDE TESTING (karen t code = GLUBED) 129 MG/DL 70-119 H OSMOLALITY [id number] 17:56:00* Test Item Value Reference Range Interpretation Comme nts OSMOLALITY SERUM (test code = OSMO) 269 mOsm/kg 275-300 L THYROID STIMULATING [id number] 17:56:00* Test Item Value Reference Range Interpretation Comme nts THYROID STIMULATING HORMONE (test code = TSH) 4.190 mc IU/ML 0.340-4.820 N GLUCOSE BEDSIDE [id number] 15:49:00* Test Item Value Reference Range Interpretation [...] code = VALP) 37.5 mcG/ML 50.0-100.0 L [id number] 14:26:00* Test Item Value Reference Range Interpretation Comme [facility] AMMONIA (test code = AMM) 29.0 mcMOL/L 11.0-32.0 N GLUCOSE BEDSIDE [id number] 11:51:00* Test Item Value Reference Range Interpretation Comme [facility] GLUCOSE BEDSIDE TESTING (karen t code = GLUBED) 88 MG/DL 70-119 N GLYCOSYLATED HEMOGLOBIN (HA1C)2022-09-18 06:53:00* Test Item Value Reference Range Interpretation Comme [facility] GLYCOSYLATED HEMOGLOBIN (HA1 C) (test code = GLYHGB) 5.2 % IS-A1C 4.5-5.6 N ESTIMATED AVERAGE [id number] 06:53:00* Test Item Value Reference Range Interpretation Comme [facility] ESTIMATED AVERAGE GLUCOSE (t est code = EAG) 103 MG/DLest LIPID PROFILE (CORONARY RISK)2022-09-18 06:53:00* Test Item Value Reference Range Interpretation Comme [facility] TRIGLYCERIDES (test code = TRIG) 83 MG/DL [...] to interpret this result as normal/abnormal. UR [id number] 21:28:00* Test Item Value Reference Range Interpretation Comme nts UR SODIUM RANDOM (test code = JESUSITA) 93 mmol/L 40-200 N UR POTASSIUM RANDOM (test code = KU) 54.8 mmol/L 25-125 N NO ESTABLISHED NORMAL RANGES FOR RANDOM SPECIMENS. UR CHLORIDE RANDOM (test code = CLU) 164 mmol/L 110-150 H UR OSMOLALITY [id number] 21:28:00* Test Item Value Reference Range Interpretation Comme nts UR OSMOLALITY RANDOM (test c ode = OSMOU) 475 mOsm/kg 100-1400 N CBC W/O [id number] 20:05:00* Test Item Value Reference Range Interpretation [...] = MPV) 9.5 fL 6.8-11.2 N LACTIC [id number] 19:35:00* Test Item Value Reference Range Interpretation Comme nts LACTIC ACID (test code = LACT) 1.0 mmol/L 0.4-2.0 N HCG SERUM [id number] 19:31:00* Test Item Value Reference Range Interpretation Comme nts HCG SERUM QUAL (test code = HCGQL) Negative SCREEN NEG - CT HEAD/BRAIN W/O [id number] 18:59:00 [facility] : 1975 Sex: F Patient Name: BHUMIKA JONES Unit No: [id number] EXAMS: CPT CODE: [id number] CT HEAD/BRAIN W/O CONT 04542 Location: H3 CT head, conducted on 09/17/22 [...] by Nati Hunt M.D. on 09/17/2022 at 185 Reported and signed by: Nati Hunt M.D. CC: Valentina Samayoa MD Dictated Date/Time: 09/17/2022 (1858) Technologist: GIL Marie(Abner)(CT) CTDI: DLP: Trnscrpt: 09/17/2022 (1858) [email or web address] DENIZ Lugo NAME: Ellis JONES [address] PHYS: Valentina Mattson MD [place] [address] : 1975 AGE: 47 SEX: F LOC: [place] PHONE #: [phone] EXAM DATE: 09/17/2022 STATUS: ADM IN FAX #: [phone] RAD #: D/C DT PAGE 1 Signed Report Patient Name: BHUMIKA JONES Unit No: [id number] EXAMS: CPT CODE: [id number] CT HEAD/BRAIN W/O CONT 09932 (Continued) Orig Print D/T: S: 09/17/2022 (1901) DENIZ Lugo NAME: ROBERT[address] PHYS: Valentina Mattson [place] [address] : 1975 AGE: 47 SEX: F LOC: B.ERMED 20 PHONE #: [phone] EXAM DATE: 09/17/2022 STATUS: ADM IN FAX #: [phone] RAD #: D/C DT PAGE 2 Signed ReportURINALYSIS [id number] 16:28:00* Test Item Value Reference Range Interpretation [...] >0 /UL NONE-SQepi DRUGS OF ABUSE SCREEN [id number] 16:28:00* Test Item Value Reference Range Interpretation [...] interpret this result as normal/abnormal. TROP-I HIGH [id number] 16:26:00* Test Item Value Reference Range Interpretation [...] and URLs may vary bymethod. BASIC METABOLIC [id number] 16:25:00* Test Item Value Reference Range Interpretation [...] interpret this result as normal/abnormal. HEPATIC FUNCTION [id number] 16:25:00* Test Item Value Reference Range Interpretation [...] ode = CK) 92 Unit/L 26-192 N [id number] 16:25:00* Test Item Value Reference Range Interpretation Comme nts LIPASE (test code = LIP) 57 Unit/L 114-286 L - CT HEAD/BRAIN W/O [id number] 00:32:00 [facility] : 1975 Sex: F Patient Name: BHUMIKA JONES Unit No: [id number] EXAMS: CPT CODE: [id number] CT HEAD/BRAIN W/O CONT 28341 EXAM: - CT HEAD/BRAIN W/O CONT LOCATION: [...] Terry August CTDI: DLP: Trnscrpt: 09/17/2022 (31) t.SDR.MKW1 DENIZ Lugo NAME: ROBERT[address] PHYS: IGNACIO. -Asim Jack [place] [id number] : 1975 AGE: 47 SEX: F LOC: GregorioERS PHONE #: [phone] EXAM DATE: 09/16/2022 STATUS: REG ER FAX #: [phone] RAD #: D/C DT PAGE 1 Signed Report Patient Name: BHUMIKA JONES Unit No: [id number] EXAMS: CPT CODE: [id number] CT HEAD/BRAIN W/O CONT 31338 (Continued) Orig Print D/T: S: 09/17/2022 (34) DENIZ Lugo NAME: ROBERT[address] PHYS: IGNACIO. - [place], [place] [address] : 1975 AGE: 47 SEX: F LOC: B.ERS PHONE #: [phone] EXAM DATE: 2022 STATUS: REG ER FAX #: [phone] RAD #: D/C DT PAGE 2 Signed ReportTROP-I HIGH [id number] 00:13:00* Test Item Value Reference Range Interpretation [...] and URLs may vary bymethod. COMPREHENSIVE METABOLIC [id number] 00:11:00* Test Item Value Reference Range Interpretation [...] interpret this result as normal/abnormal. CBC W/AUTO [id number] 23:59:00* Test Item Value Reference Range Interpretation [...] K/mm3 0.0-0.05 N - XR CHEST 1 [id number] 23:34:00 [facility] BH[facility] : 1975 Sex: F [place]: E St: PRE -- Patient Name: BHUMIKA JONES Unit No: [id number] EXAMS: CPT CODE: [id number] XR CHEST 1 V 35753 EXAMINATION: - XR CHEST 1 V CLINICAL [...] By: NadiyaJH12 Orig Print D/T: S: 09/16/2022 (0327) DENIZ Lugo NAME: ROBERT[address] PHYS: IGNACIO.02 - Asim Jack MD, [place] [address] : 1975 AGE: 47 SEX: F LOC: B.ERS PHONE #: [phone] EXAM DATE: 09/16/2022 STATUS: PRE ER FAX #: [phone] RAD NO: DC Dt: PAGE 1 Signed ReportCARBAMAZEPINE (TEGRETOL) 2022-09-15 06:12:00* Test Item Value Reference Range Interpretation Comme nts CARBAMAZEPINE (TEGRETOL) (test code = CARB) 1.5 ug/mL 4.0-12.0 L In conjunction w ith other antiepileptic drugs Therapeutic 4.0 - 8.0 Toxicity 9.0 - 12.0 Carbamazepine alone Therapeutic 8.0 - 12.0 Detection Limit = 2.0 <2.0 indicates None DetectedPerformed At: [facility] [address] [id number] Michael Reeves MD Ph:[phone] VALPROIC ACID (DEPAKENE)2022-09-15 06:12:00* Test Item Value Reference Range Interpretation Comme nts VALPROIC ACID (DEPAKENE) (te st code = VALP) 80.6 mcG/ML 50.0-100.0 N COMPREHENSIVE METABOLIC [id number] 06:00:00* Test Item Value Reference Range Interpretation [...] interpret this result as normal/abnormal. CBC W/AUTO [id number] 05:37:00* Test Item Value Reference Range Interpretation [...] NRBC#) 0.00 K/mm3 0.0-0.05 N GLUCOSE BEDSIDE [id number] 20:03:00* Test Item Value Reference Range Interpretation Comme nts GLUCOSE BEDSIDE TESTING (karen t code = GLUBED) 117 MG/DL 70-119 N DRUGS OF ABUSE SCREEN [id number] 11:42:00* Test Item Value Reference Range Interpretation [...] result as normal/abnormal. - CT HEAD/BRAIN W/O [id number] 11:37:00 [facility] SILAS JONESPCION : 1975 Sex: F Patient Name: SILAS JONESPCION Unit No: [id number] EXAMS: CPT CODE: [id number] CT HEAD/BRAIN W/O CONT 64147 EXAMINATION: - CT HEAD/BRAIN W/O CONT COMPARISON: None HISTORY: Seizure LOCATION CODE: [id number]: CT of the Brain without contrast. Axial [...] MD; Jim Jaimes MD Dictated Date/Time: 09/14/2022 (6548) Technologist: ASUNCION CASTELLANO CTDI: DLP: Trnscrpt: 09/14/2022 (5813) CliffordR.[email or web address] DENIZ Lugo NAME: BHUMIKA JONES [facility] PHYS: Vladimir Menchaca MD [address] [place] [address] : 1975 AGE: 47 SEX: F [place], [place] [address] LOC: NEHA Cintron PHONE #: [phone] EXAM DATE: 09/14/2022 STATUS: ADM IN FAX #: [phone] RAD #: D/C DT PAGE 1 Signed Report Patient Name: ROBERTADRIANAMONIQUEUnit No: [id number] EXAMS: CPT CODE: [id number] CT HEAD/BRAIN W/O CONT 89435 (Continued) Orig Print D/T: S: 09/14/2022 (1140) DENIZ Lugo NAME: BHUMIKA JONES [facility] PHYS: Vladimir Menchaca MD [address] [place] [address] BLVD : 1975 AGE: 47 SEX: F [place] [address] LOC: NEHA Cintron PHONE #: [phone] EXAM DATE: 09/14/2022 STATUS: ADM IN FAX #: [phone] RAD #: D/C DT PAGE 2 Signed [...] AVOIDED DUE TO POSSIBLE HEPARINCONTAMINATION HCG SERUM [id number] 06:51:00* Test Item Value Reference Range Interpretation [...] CK) 268 Unit/L 26-192 H CBC W/AUTO [id number] 03:43:00* Test Item Value Reference Range Interpretation [...] = NRBC#) 0.00 K/mm3 0.0-0.05 N URINALYSIS [id number] 03:41:00* Test Item Value Reference Range Interpretation [...] RARE /LPF NONE - XR CHEST 2 [id number] 02:06:00 [facility]: BH[facility] : 1975 Sex: F FAX: TylerSuleman gipson RUTH [phone] [place]: St: REG Patient Name: BHUMIKA JONES Unit No: [id number] EXAMS: CPT CODE: [id number] XR CHEST 2 V 15627 EXAM: - XR CHEST 2 V HISTORY: [...] 09/14/2022 (0209) DENIZ Lugo NAME: BHUMIKA JONES [address] [place] [address] PHYS: GISEL ScottbrandanSuleman MIRANDA [place], [place] [address] : 1975 AGE: 47 SEX: F LOC: MARCOS PHONE #: [phone] EXAM DATE: 09/14/2022 STATUS: REG ER FAX #: [phone] RAD NO: DC Dt: PAGE 1 Signed ReportCOMPREHENSIVE METABOLIC [id number] 12:49:00* Test Item Value Reference Range Interpretation [...] used to interpret this result as normal/abnormal. [id number] 12:49:00* Test Item Value Reference Range Interpretation Comme nts MAGNESIUM (test code = MAG) 1.7 MG/DL 1.6-2.6 N CBC W/AUTO [id number] 12:36:00* Test Item Value Reference Range Interpretation [...] RARE /LPF NONE DRUGS OF ABUSE SCREEN [id number] 00:33:00* Test Item Value Reference Range Interpretation [...] 300 ng/mL UA RFLX MICR CULT IF [id number] 00:30:00* Test Item Value Reference Range Interpretation [...] culture: Suprapubic PainSpecimen Description: CLEAN CATCHBASIC METABOLIC [id number] 00:18:00* Test Item Value Reference Range Interpretation [...] 8.9 mg/dl 8.0-10.5 N HEPATIC FUNCTION PANEL [id number] 00:18:00* Test Item Value Reference Range Interpretation [...] ALKP) 113 Units/L 50.0-136.0 N HCG SERUM [id number] 00:18:00* Test Item Value Reference Range Interpretation Comme [facility] HCG SERUM QUAL (test code = HCGQL) NEGATIVE NEGATIVE [id number] 00:18:00* Test Item Value Reference Range Interpretation Comme [facility] ALCOHOL (test code = ALC) 0.00 gm/dL 0.00-0.00 N ETHYL ALCOHOL VA LUES - INTERPRETATION: 0.050 GM/DL - NOT INTOXICATED 0.100 GM/DL - INTOXICATED 0.350-0.450 GM/DL - SEVERELY INTOXICATED 0.550 GM/DL- FATAL INTOXICATION Coronavirus 2019 nCoV [id number] 00:09:00* Test Item Value Reference Range Interpretation Comme [facility] Coronavirus 2019 nCoV Bedside (test code = QETED29WZAFE) Negative NEGATIVE Negative results should be treated as presumptive and ifinconsistent with clinical signs and symptoms, or necessaryfor patient management, should be tested with an alternativemolecular assay. Negative results do not preclude MGLR-DnZ-0ygwwxaoun and should not be used as the sole basis forpatient management decisions. Negative results should beconsidered in the context of a patient's recent exposures,history, presence of clinical signs and symptoms consistentwith COVID-19. CBC W/AUTO [id number] 23:58:00* Test Item Value Reference Range Interpretation Comme [facility] WHITE BLOOD CELL (test code = WBC) [...] X10 3uL 0.00-0.01 N COMP. METABOLIC PANEL (95020)2022-09-07 02:12:41* Test Item Value Reference Range Interpretation Comme nts NA (test code = 4918722796) 133 mmol/L 135-145 L K (test code = 9518450961) 4.4 mmol/L 3.5-5.0 CL (test code = 5258917834) 102 mmol/L 98-108 CO2 TOTAL (test code = 1499460478) 25 mmol/L 23-31 AGAP (test code = 0846750305) 6 2-16 BUN (test code = 0166488857) 22 mg/dL 7-23 GLUCOSE (test code = 9899208851) 97 mg/dL 70-110 CREATININE (test code = 4625325304) 0.40 mg/dL 0.50-1.04 L TOTAL BILI (test code = 2403557533) 0.3 mg/dL 0.1-1.1 CALCIUM (test code = 9869248219) 8.9 mg/dL 8.6-10.6 T PROTEIN (test code = 9117497863) 7.7 g/dL 6.3-8.2 ALBUMIN (test code = 0001588326) 4.0 g/dL 3.5-5.0 ALK PHOS (test code = 6212194742) 104 U/L 34-122 ALTv (test code = 1742-6) 15 U/L 5-35 AST(SGOT) (test code = 1412572846) 22 U/L 13-40 eGFR (test code = 9074871627) 170.4 mL/min/1.73m2 HANNAH (test code = HANNAH) [...] imaging tests). Lab Interpretation (test code = 33747-8) Abnormal [facility] WITH [id number] 02:01:20* Test Item Value Reference Range Interpretation Comme nts WBC (test code = 6690-2) 6.17 See_Comment [Automated [employer]] The system which generated this result transmitted reference range: 4.30 - 11.10 10*3/?L. The reference range was not used to interpret this result as normal/abnormal. RBC (test code = 789-8) 3.73 See_Comment L [Automated [employer]] The system which generated this result transmitted [...] 32.9 g/dL 31.6-35.1 RDW-SD (test code = 96534-3) 48.1 fL 39.0-49.9 RDW-CV (test code = 788-0) 14.7 % 12.0-15.5 PLT (test code = 777-3) 272 See_Comment [Automated [employer]] The system which generated this result transmitted reference range: 166 - 358 10*3/?L. The reference range was not used to interpret this result as normal/abnormal. MPV (test code = 03708-9) 9.6 fL 9.5-12.9 NRBC/100 WBC (test code = 6640137497) 0.0 See_Comment [Automated me ssage] The system which generated this result transmitted reference range: 0.0 - 10.0 /100 WBCs. The reference range was not used to interpret this result as normal/abnormal. NRBC x10^3 (test code = 0681635714) See_Comment [Automated messa ge] The system which generated this result transmitted reference range: 10*3/?L. The reference range was not used to interpret this result as normal/abnormal. GRAN MAT (NEUT) % (test code = 770-8) 42.2 % IMM GRAN % (test code = 3328873769) 0.20 % LYMPH % (test code = 736-9) 38.2 % MONO % (test code = 5905-5) 12.6 % EOS % (test code = 713-8) 5.8 % BASO % (test code = 706-2) 1.0 % GRAN MAT x10^3(ANC) (test code = 0478138220) 2.60 10*3/uL 1.88-7.09 IMM GRAN x10^3 (test code = 4952473464) 0.00-0.06 LYMPH x10^3 (test code = 731-0) 2.36 10*3/uL 1.32-3.29 MONO x10^3 (test code = 742-7) 0.78 10*3/uL 0.33-0.92 EOS x10^3 (test code = 711-2) 0.36 10*3/uL 0.03-0.39 BASO x10^3 (test code = 704-7) 0.06 10*3/uL 0.01-0.07 Lab Interpretation (test code = 92379-2) [facility] by RT-PCR (HIGH RISK) 2020-08-19 00:00:00* Test Item Value Reference Range Interpretation Comme nts SARS-CoV-2 INTERPRETATION (t est code = 71437) NEGATIVE SOURCE (test code = 13450) NOT SPECIFIED Henry Quiles HdhdpmRTMW-HfK-3 (COVID-19) by RT-PCR (HIGH RISK)2020-08-19 00:00:00* Test Item Value Reference Range Interpretation Comme nts SARS-CoV-2 INTERPRETATION (t est code = 05776) NEGATIVE SOURCE (test code = 74269) NOT SPECIFIED Henry Quiles GydqbiZYCP-AeS-2 (COVID-19) by RT-PCR (HIGH RISK)2020-08-19 00:00:00* Test Item Value Reference Range Interpretation Comme nts SARS-CoV-2 INTERPRETATION (t est code = 60403) NEGATIVE SOURCE (test code = 63931) NOT SPECIFIED Henry Quiles RiwgxiPIVL-LtT-5 (COVID-19) by RT-PCR (HIGH RISK)2020-08-19 00:00:00* Test Item Value Reference Range Interpretation Comme nts SARS-CoV-2 INTERPRETATION (t est code = 42704) NEGATIVE SOURCE (test code = 43392) NOT SPECIFIED Henry Quiles AustinHPV HIGH RISK WITH GENOTYPE, [id number] 00:00:00* Test Item Value Reference Range Interpretation Comme nts HPV HIGH RISK INTERP (test c ode = 30723) NEGATIVE HPV 16 (test code = 69719) NEGATIVE HPV 18 (test code = 20724) NEGATIVE HPV, HR, OTHER GENOTYPES (te st code = 66284) NEGATIVE Henry ContrerasPAP TEST, THINPREP, [id number] 00:00:00* Test Item Value Reference Range Interpretation Comme nts SOURCE: (test code = 8001) Cervical/Endocervical SLIDES: (test code = 8011) 1 LMP: (test code = 8021) 06/2017 SPECIMEN ADEQUACY: (test code = 34710) (NOTE) INTERPRETATION: (test code = 99422) NILM/NO EPITH. ABNORMALITY;SEE BELOW NATURAL RESOURCES MANAGER: (test code = 8101) KANA Hamlin(ASCP) IAC LOCATION: (test code = 67457) (NOTE) CPT: (test code = 8140) (NOTE) Henry Quiles AustinHPV HIGH RISK WITH GENOTYPE, [id number] 00:00:00* Test Item Value Reference Range Interpretation Comme nts HPV HIGH RISK INTERP (test c ode = 19365) NEGATIVE HPV 16 (test code = 85500) NEGATIVE HPV 18 (test code = 68572) NEGATIVE HPV, HR, OTHER GENOTYPES (te st code = 66790) NEGATIVE Henry Quiles AustinPAP TEST, THINPREP, [id number] 00:00:00* Test Item Value Reference Range Interpretation Comme nts SOURCE: (test code = 8001) Cervical/Endocervical SLIDES: (test code = 8011) 1 LMP: (test code = 8021) 06/2017 SPECIMEN ADEQUACY: (test code = 25052) (NOTE) INTERPRETATION: (test code = 78442) NILM/NO EPITH. ABNORMALITY;SEE BELOW NATURAL RESOURCES MANAGER: (test code = 8101) [place], [place](ASCP) IAC LOCATION: (test code = 05934) (NOTE) CPT: (test code = 8140) (NOTE) Henry F AustinHPV HIGH RISK WITH GENOTYPE, [id number] 00:00:00* Test Item Value Reference Range Interpretation Comme nts HPV HIGH RISK INTERP (test c ode = 30490) NEGATIVE HPV 16 (test code = 22970) NEGATIVE HPV 18 (test code = 71763) NEGATIVE HPV, HR, OTHER GENOTYPES (te st code = 73786) NEGATIVE Henry Quiles AustinPAP TEST, THINPREP, [id number] 00:00:00* Test Item Value Reference Range Interpretation Comme nts SOURCE: (test code = 8001) Cervical/Endocervical SLIDES: (test code = 8011) 1 LMP: (test code = 8021) 06/2017 SPECIMEN ADEQUACY: (test code = 34225) (NOTE) INTERPRETATION: (test code = 54869) NILM/NO EPITH. ABNORMALITY;SEE BELOW NATURAL RESOURCES MANAGER: (test code = 8101) [place], CT(ASCP) IAC LOCATION: (test code = 53421) (NOTE) CPT: (test code = 8140) (NOTE) Henry F AustinHPV HIGH RISK WITH GENOTYPE, [id number] 00:00:00* Test Item Value Reference Range Interpretation Comme nts HPV HIGH RISK INTERP (test c ode = 91338) NEGATIVE HPV 16 (test code = 71775) NEGATIVE HPV 18 (test code = 02890) NEGATIVE HPV, HR, OTHER GENOTYPES (te st code = 37824) NEGATIVE Henry F AustinPAP TEST, THINPREP, [id number] 00:00:00* Test Item Value Reference Range Interpretation Comme nts SOURCE: (test code = 8001) Cervical/Endocervical SLIDES: (test code = 8011) 1 LMP: (test code = 8021) 06/2017 SPECIMEN ADEQUACY: (test code = 85028) (NOTE) INTERPRETATION: (test code = 44062) NILM/NO EPITH. ABNORMALITY;SEE BELOW NATURAL RESOURCES MANAGER: (test code = 8101) KANA Hamlin(ASCP) IAC LOCATION: (test code = 69863) (NOTE) CPT: (test code = 8140) (NOTE) Henry Quiles AustinCT HEAD WO [id number] 22:34:12Impression: 1. ?No acute intracranial process. 2. [...] he patient. Please correlate with history and physicalexamination.[facility] 2 [id number] 22:29:40No acute osseous abnormality. Preliminary Report Dictated [...] reviewed this study and agree with theabove report.[facility] CenterCBC WITH [id number] 21:46:00* Test Item Value Reference Range Interpretation Comme nts WBC (test code = 6690-2) See_Comment [Automated messa ge] The system which generated this result transmitted reference range: 4.30 - 11.10 10*3/?L. The reference range was not used to interpret this result as normal/abnormal. RBC (test code = 789-8) See_Comment L [Automated ENTrigue Surgicala ge] The system which generated this result [...] 32.2 g/dL 31.6-35.1 RDW-SD (test code = 11025-5) 45.1 fL 39-49.9 RDW-CV (test code = 788-0) 14.6 % 12-15.5 PLT (test code = 777-3) See_Comment L [Automated messa ge] The system which generated this result transmitted reference range: 166 - 358 10*3/?L. The reference range was not used to interpret this result as normal/abnormal. MPV (test code = 73046-5) 9.0 fL 9.5-12.9 L NRBC/100 WBC (test code = 1846386014) See_Comment [Automated me ssage] The system which generated this result transmitted reference range: 0.0 - 10.0 /100 WBCs. The reference range was not used to interpret this result as normal/abnormal. NRBC x10^3 (test code = 9074056896) <0.01 See_Comment [Automated messa ge] The system which generated this result transmitted reference range: 10*3/?L. The reference range was not used to interpret this result as normal/abnormal. GRAN MAT (NEUT) % (test code = 770-8) 51.3 % IMM GRAN % (test code = 6659472523) 0.40 % LYMPH % (test code = 736-9) 24.4 % MONO % (test code = 5905-5) 23.1 % EOS % (test code = 713-8) 0.4 % BASO % (test code = 706-2) 0.4 % GRAN MAT x10^3(ANC) (test code = 1453666651) 2.48 10*3/uL 1.88-7.09 IMM GRAN x10^3 (test code = 6214962408) <0.03 0-0.06 LYMPH x10^3 (test code = 731-0) 1.18 10*3/uL 1.32-3.29 L MONO x10^3 (test code = 742-7) 1.12 10*3/uL 0.33-0.92 H EOS x10^3 (test code = 711-2) <0.03 0.03-0.39 L BASO x10^3 (test code = 704-7) <0.03 0.01-0.07 Lab Interpretation (test code = 91785-8) Abnormal [facility] C[facility] 2 [id number] 03:28:03No acute osseous abnormality. Preliminary Report Dictated [...] this study and agree withthe above report. [facility] CenterValproic Acid [id number] 08:03:22* Test Item Value Reference Range Interpretation Comme nts Valproic Acid Level (test co de = Valproic Acid Level) 57.6 ug/mL(g) 50.0-100.0 Hemoglobin [id number] 09:36:00* Test Item Value Reference Range Interpretation Comme nts Hemoglobin A1c (test code = Hemoglobin A1c) 5.0 % 4.8-5.9 Non Diabetic 4.8-5.9%Diabetic <7.0% CT Shoulder w/o Contrast [id number] 16:49:13Patient: BHUMIKA JONES Date/Time01/09/2019 16:14 CDTReason for [...] Adam FSigned (Electronic Signature): 01/09/2019 4:49 pmRPR Vojxzjkwksn4725-10-67 21:33:20* Test Item Value Reference Range Interpretation [...] 04-23-2020 N XR Shoulder Complete 2+ Views [id number] 15:41:25Patient: BHUMIKA JONES Date/Time01/07/2019 15:25 CDTReason for [...] CSigned (Electronic Signature): 01/07/2019 3:41 pmThyroid Stimulating Bbuvljk9262-24-58 03:07:04* Test Item Value Reference Range Interpretation Comme nts TSH (test code = TSH) 9.650 mIU/mL 0.270-4.200 H Lipid [id number] 03:07:03* Test Item Value Reference Range Interpretation Comme nts Cholesterol Total (test code = Cholesterol Total) 199 mg/dL 0-200 RISK OF HEART DISEASEPublished by [place] Heart Association Analyte Optimal Borderline Increased RiskCHOL [...] is LDL/HDL Ratio=LDL Calc/HDL Chol HCG Qualitative Ccymh0997-71-64 02:33:13* Test Item Value Reference Range Interpretation Comme nts HCG, Serum Qual (test code = HCG, Serum Qual) Negative Lot # (test code = Lot #) [id number] N Expiration Dt (test code = Expiration Dt) 2020-04-23 N Neg Control (test code = Neg Control) Negative Pos Control (test code = Pos Control) Positive Internal QC (test code = Int ernal QC) Acceptable Drugs of Abuse Urine [id number] 18:58:11* Test Item Value Reference Range Interpretation [...] = Cannabinoid Screen Ur) Negative Negative Alcohol Wjmft0882-87-50 18:47:34* Test Item Value Reference Range Interpretation Comme nts Ethanol Level (test code = Ethanol Level) <0.00 g/dL 0.00-0.01 Intoxicated 0.08 0 g/dL or more Ethanol Inst (test code = Ethanol Inst) <0 N Comprehensive Metabolic [id number] 18:47:33* Test Item Value Reference Range Interpretation [...] A/G Ratio) 1.0 ratio N Comprehensive Metabolic Clkzu5827-47-27 18:47:33* Test Item Value Reference Range Interpretation [...] is not provided, and the patient is -Maltese, multiply by 1.212. If sex is not [...] the National Kidney Foundation, http://nkdep.nih.gov Comprehensive Metabolic Rmbad1860-95-08 18:47:33* Test Item Value Reference Range Interpretation [...] is not provided, and the patient is -[place]altese, multiply by 1.212. If sex is not [...] is not provided, and the patient is -[place]ese, multiply by 1.212. If sex is not [...] Kidney Foundation, http://nkdep.nih.gov Complete Blood Count with Byakmqdrkkis9171-56-68 18:15:23* Test Item Value Reference Range Interpretation [...] code = IPF) 0 % N Automated Dygzyxsbhlmd9114-94-50 18:15:23* Test Item Value Reference Range Interpretation Comme nts Neutro Auto (test code = Sunny tro Auto) 42.1 % 36.0-70.0 Lymph Auto (test code = Lymph Auto) 40.0 % 12.0-44.0 Clinch Auto (test code = Clinch Auto) 12.2 % 0.0-11.0 H Eos, Auto (test code = Eos, Auto) 4.9 % 0.0-7.0 Basophil Auto (test code = B asophil Auto) 0.6 % 0.0-2.0 Neutro Absolute (test code = Neutro Absolute) 2.2 x10 1.6-7.4 Lymph Absolute (test code = Lymph Absolute) 2.06 x10 .50-4.60 Clinch Absolute (test code = M richa Absolute) .63 x10 .00-1.20 Eos Absolute (test code = Eo s Absolute) 0.25 x10 0.00-0.74 Baso Absolute (test code = B aso Absolute) 0.03 x10 0.00-0.21 IG [id number] 18:15:23* Test Item Value Reference Range Interpretation Comme nts IG (test code = IG) 0.2 % 0.0-5.0 IG Abs (test code = IG Abs) 0 x10 N VALPROIC [id number] 00:00:00* Test Item Value Reference Range Interpretation Comme nts VALPROIC ACID (test code = 3025) 69.8 UG/ML Henry Quiles AustinVALPROIC [id number] 00:00:00* Test Item Value Reference Range Interpretation Comme nts VALPROIC ACID (test code = 3025) 69.8 UG/ML Henry Quiles AustinVALPROIC [id number] 00:00:00* Test Item Value Reference Range Interpretation Comme nts VALPROIC ACID (test code = 3025) 69.8 UG/ML Henry Quiles AustinVALPROIC [id number] 00:00:00* Test Item Value Reference Range Interpretation Comme nts VALPROIC ACID (test code = 3025) 69.8 UG/ML Henry Quiles AustinURINE CULTURE, NO [id number] 00:00:00* Test Item Value Reference Range Interpretation Comme nts URINE CULTURE, NO SENS (test code = 33928) SPECIMEN NUMBER: [id number] Henry Quiles AustinURINE CULTURE, NO [id number] 00:00:00* Test Item Value Reference Range Interpretation Comme nts URINE CULTURE, NO SENS (test code = 54322) SPECIMEN NUMBER: [id number] Henry Quiles AustinURINE CULTURE, NO [id number] 00:00:00* Test Item Value Reference Range Interpretation Comme nts URINE CULTURE, NO SENS (test code = 42434) SPECIMEN NUMBER: [id number] Henry Quiles AustinURINE CULTURE, NO [id number] 00:00:00* Test Item Value Reference Range Interpretation Comme nts URINE CULTURE, NO SENS (test code = 21091) SPECIMEN NUMBER: [id number] Henry Quiles AustinIRON BINDING CAPACITY AND IRON AND % [id number] 00:00:00* Test Item Value Reference Range Interpretation Comme nts IRON, SERUM (test code = 2222) 42 UG/DL UNSATURATED IBC (test code = 95884) 279 UG/DL CALC TOTAL IBC (test code = 2077) 321 UG/DL CALC % IRON SAT (test code = 2079) 13 % Henry Quiles [id number] 00:00:00* Test Item Value Reference Range Interpretation Comme nts FERRITIN (test code = 2075) 15 NG/ML Henry F [id number] 00:00:00* Test Item Value Reference Range Interpretation Comme nts TRANSFERRIN (test code = 4936) 269 MG/DL Henry F AustinFOLIC [id number] 00:00:00* Test Item Value Reference Range Interpretation Comme nts FOLIC ACID (test code = 2695) 5.4 UG/L Henry F AustinIRON BINDING CAPACITY AND IRON AND % [id number] 00:00:00* Test Item Value Reference Range Interpretation Comme nts IRON, SERUM (test code = 2222) 42 UG/DL UNSATURATED IBC (test code = 55747) 279 UG/DL CALC TOTAL IBC (test code = 7) 321 UG/DL CALC % IRON SAT (test code = 2079) 13 % Henry F [id number] 00:00:00* Test Item Value Reference Range Interpretation Comme nts FERRITIN (test code = 2075) 15 NG/ML Henry F [id number] 00:00:00* Test Item Value Reference Range Interpretation Comme nts TRANSFERRIN (test code = 4936) 269 MG/DL Henry F AustinFOLIC [id number] 00:00:00* Test Item Value Reference Range Interpretation Comme nts FOLIC ACID (test code = 2695) 5.4 UG/L Henry F AustinIRON BINDING CAPACITY AND IRON AND % [id number] 00:00:00* Test Item Value Reference Range Interpretation Comme nts IRON, SERUM (test code = 2222) 42 UG/DL UNSATURATED IBC (test code = 94972) 279 UG/DL CALC TOTAL IBC (test code = 2077) 321 UG/DL CALC % IRON SAT (test code = 2079) 13 % Henry F [id number] 00:00:00* Test Item Value Reference Range Interpretation Comme nts FERRITIN (test code = 2075) 15 NG/ML Henry F [id number] 00:00:00* Test Item Value Reference Range Interpretation Comme nts TRANSFERRIN (test code = 4936) 269 MG/DL Henry F AustinFOLIC [id number] 00:00:00* Test Item Value Reference Range Interpretation Comme nts FOLIC ACID (test code = 2695) 5.4 UG/L Henry F AustinIRON BINDING CAPACITY AND IRON AND % [id number] 00:00:00* Test Item Value Reference Range Interpretation Comme nts IRON, SERUM (test code = 2222) 42 UG/DL UNSATURATED IBC (test code = 23581) 279 UG/DL CALC TOTAL IBC (test code = 2077) 321 UG/DL CALC % IRON SAT (test code = 2079) 13 % Henry ContrerasUexejbZQSGIWRI4126-74-72 00:00:00* Test Item Value Reference Range Interpretation Comme nts FERRITIN (test code = 2075) 15 NG/ML Henry Quiles IfopxpHNJXDXJVYHG7389-04-57 00:00:00* Test Item Value Reference Range Interpretation Comme nts TRANSFERRIN (test code = 4936) 269 MG/DL Henry Quiles AustinFOLIC [id number] 00:00:00* Test Item Value Reference Range Interpretation Comme nts FOLIC ACID (test code = 2695) 5.4 UG/L Henry ContrerasCULTURE, URINE [ADDED]2018-06-12 00:00:00* Test Item Value Reference Range Interpretation Comme nts CULTURE, URINE (test code = 52194) SPECIMEN NUMBER: [id number] Henry Quiles AustinCULTURE, URINE [ADDED]2018-06-12 00:00:00* Test Item Value Reference Range Interpretation Comme nts CULTURE, URINE (test code = 41852) SPECIMEN NUMBER: [id number] Henry Quiles AustinCULTURE, URINE [ADDED]2018-06-12 00:00:00* Test Item Value Reference Range Interpretation Comme nts CULTURE, URINE (test code = 13067) SPECIMEN NUMBER: [id number] Henry Quiles AustinCULTURE, URINE [ADDED]2018-06-12 00:00:00* Test Item Value Reference Range Interpretation Comme nts CULTURE, URINE (test code = 62936) SPECIMEN NUMBER: [id number] Henry Quiles AustinCBC W/AUTO [id number] 00:00:00* Test Item Value Reference Range Interpretation [...] 1015) 184 K/UL Henry Quiles BenCOMPREHENSIVE METABOLIC [id number] 00:00:00* Test Item Value Reference Range Interpretation Comme nts GLUCOSE (test code = 2217) 86 MG/DL BUN (test code = 2208) 16 MG/DL CREATININE (test code = 2214) 0.45 MG/DL eGFR AMER. (test cod e = 61600) 141 ML/MIN/1.73 eGFR NON- AMER. (test code = 54601) 122 ML/MIN/1.73 CALC BUN/CREAT (test code = [...] code = 2219) 17 U/L Henry Etta BenVALPROIC [id number] 00:00:00* Test Item Value Reference Range Interpretation Comme nts VALPROIC ACID (test code = 3025) 100.9 UG/ML Henry Etta eBnCBC W/AUTO [id number] 00:00:00* Test Item Value Reference Range Interpretation [...] = 1015) 184 K/UL Henry ContrerasCOMPREHENSIVE METABOLIC [id number] 00:00:00* Test Item Value Reference Range Interpretation Comme nts GLUCOSE (test code = 2217) 86 MG/DL BUN (test code = 2208) 16 MG/DL CREATININE (test code = 2214) 0.45 MG/DL eGFR AMER. (test cod e = 30283) 141 ML/MIN/1.73 eGFR NON- AMER. (test code = 06470) 122 ML/MIN/1.73 CALC BUN/CREAT (test code = [...] code = 2219) 17 U/L Henry ContrerasVALPROIC [id number] 00:00:00* Test Item Value Reference Range Interpretation Comme nts VALPROIC ACID (test code = 3025) 100.9 UG/ML Henry Quiles BenCBC W/AUTO [id number] 00:00:00* Test Item Value Reference Range Interpretation [...] 1015) 184 K/UL Henry Quiles BenCOMPREHENSIVE METABOLIC [id number] 00:00:00* Test Item Value Reference Range Interpretation Comme nts GLUCOSE (test code = 2217) 86 MG/DL BUN (test code = 2208) 16 MG/DL CREATININE (test code = 2214) 0.45 MG/DL eGFR AMER. (test cod e = 24833) 141 ML/MIN/1.73 eGFR NON- AMER. (test code = 13408) 122 ML/MIN/1.73 CALC BUN/CREAT (test code = [...] code = 2219) 17 U/L Henry ContrerasVALPROIC [id number] 00:00:00* Test Item Value Reference Range Interpretation Comme nts VALPROIC ACID (test code = 3025) 100.9 UG/ML Henry ContrerasCBC W/AUTO [id number] 00:00:00* Test Item Value Reference Range Interpretation [...] = 1015) 184 K/UL Henry ContrerasCOMPREHENSIVE METABOLIC [id number] 00:00:00* Test Item Value Reference Range Interpretation Comme nts GLUCOSE (test code = 2217) 86 MG/DL BUN (test code = 2208) 16 MG/DL CREATININE (test code = 2214) 0.45 MG/DL eGFR AMER. (test cod e = 38915) 141 ML/MIN/1.73 eGFR NON- AMER. (test code = 32582) 122 ML/MIN/1.73 CALC BUN/CREAT (test code = [...] code = 2219) 17 U/L Henry ContrerasVALPROIC [id number] 00:00:00* Test Item Value Reference Range Interpretation Comme nts VALPROIC ACID (test code = 3025) 100.9 UG/ML Henry ContrerasPAP TEST, THINPREP, [id number] 00:00:00* Test Item Value Reference Range Interpretation Comme nts SOURCE: (test code = 8001) Cervical/Endocervical SLIDES: (test code = 8011) 1 LMP: (test code = 8021) 03/2017 SPECIMEN ADEQUACY: (test code = 51309) (NOTE) INTERPRETATION: (test code = 97098) NO EPITHELIAL ABNORMALITY SEE BELOW NATURAL RESOURCES MANAGER: (test code = 8101) KANA Merida(ASCP)IAC LOCATION: (test code = 08622) (NOTE) CPT: (test code = 8140) (NOTE) Henry ContrerasHPV HIGH RISK WITH GENOTYPE, [id number] 00:00:00* Test Item Value Reference Range Interpretation Comme [facility] HPV HIGH RISK INTERP (test c ode = 81202) NEGATIVE HPV 16 (test code = 48968) NEGATIVE HPV 18 (test code = 32721) NEGATIVE HPV, HR, OTHER GENOTYPES (te st code = 74284) NEGATIVE Henry ContrerasPAP TEST, THINPREP, [id number] 00:00:00* Test Item Value Reference Range Interpretation Comme nts SOURCE: (test code = 800) Cervical/Endocervical SLIDES: (test code = 8011) 1 LMP: (test code = 8021) 03/2017 SPECIMEN ADEQUACY: (test code = 75085) (NOTE) INTERPRETATION: (test code = 18835) NO EPITHELIAL ABNORMALITY SEE BELOW NATURAL RESOURCES MANAGER: (test code = 8101) Santi Huibregtse, CT(ASCP)IAC LOCATION: (test code = 81055) (NOTE) CPT: (test code = 8140) (NOTE) Henry Quiles AustinHPV HIGH RISK WITH GENOTYPE, [id number] 00:00:00* Test Item Value Reference Range Interpretation Comme nts HPV HIGH RISK INTERP (test c ode = 98358) NEGATIVE HPV 16 (test code = 55555) NEGATIVE HPV 18 (test code = 72314) NEGATIVE HPV, HR, OTHER GENOTYPES (te st code = 91828) NEGATIVE Henry ContrerasPAP TEST, THINPREP, [id number] 00:00:00* Test Item Value Reference Range Interpretation Comme nts SOURCE: (test code = 8001) Cervical/Endocervical SLIDES: (test code = 8011) 1 LMP: (test code = 8021) 03/2017 SPECIMEN ADEQUACY: (test code = 36787) (NOTE) INTERPRETATION: (test code = 08757) NO EPITHELIAL ABNORMALITY SEE BELOW NATURAL RESOURCES MANAGER: (test code = 8101) KANA Merida(ASCP)IAC LOCATION: (test code = 80551) (NOTE) CPT: (test code = 8140) (NOTE) Henry Quiles AustinHPV HIGH RISK WITH GENOTYPE, [id number] 00:00:00* Test Item Value Reference Range Interpretation Comme nts HPV HIGH RISK INTERP (test c ode = 76114) NEGATIVE HPV 16 (test code = 86129) NEGATIVE HPV 18 (test code = 47430) NEGATIVE HPV, HR, OTHER GENOTYPES (te st code = 57174) NEGATIVE Henry ContrerasPAP TEST, THINPREP, [id number] 00:00:00* Test Item Value Reference Range Interpretation Comme nts SOURCE: (test code = 8001) Cervical/Endocervical SLIDES: (test code = 8011) 1 LMP: (test code = 8021) 03/2017 SPECIMEN ADEQUACY: (test code = 97528) (NOTE) INTERPRETATION: (test code = 63888) NO EPITHELIAL ABNORMALITY SEE BELOW NATURAL RESOURCES MANAGER: (test code = 8101) KANA Merida(ASCP)IAC LOCATION: (test code = 60057) (NOTE) CPT: (test code = 8140) (NOTE) Henry Quiles AustinHPV HIGH RISK WITH GENOTYPE, [id number] 00:00:00* Test Item Value Reference Range Interpretation Comme nts HPV HIGH RISK INTERP (test c ode = 79206) NEGATIVE HPV 16 (test code = 19487) NEGATIVE HPV 18 (test code = 61590) NEGATIVE HPV, HR, OTHER GENOTYPES (te st code = 63528) NEGATIVE Henry Quiles AustinHIV AB/AG COMBO RFLX [id number] 00:00:00* Test Item Value Reference Range Interpretation Comme nts HIV 1/2 4TH GEN, RFLX CONF ( test code = 3514) NON-REACTIVE Henry F AustinGC AND CHLAMYDIA AMPLIFIED, [id number] 00:00:00* Test Item Value Reference Range Interpretation Comme nts GONORRHEA, TMA (test code = 50947) NEGATIVE CHLAMYDIA, TMA (test code = 90267) NEGATIVE Henry F AustinGC AND CHLAMYDIA AMPLIFIED, [id number] 00:00:00* Test Item Value Reference Range Interpretation Comme nts GONORRHEA, TMA (test code = 05683) NEGATIVE CHLAMYDIA, TMA (test code = 99360) NEGATIVE Henry F AustinHIV AB/AG COMBO RFLX [id number] 00:00:00* Test Item Value Reference Range Interpretation Comme nts HIV 1/2 4TH GEN, RFLX CONF ( test code = 3514) NON-REACTIVE Henry F AustinHIV AB/AG COMBO RFLX [id number] 00:00:00* Test Item Value Reference Range Interpretation Comme nts HIV 1/2 4TH GEN, RFLX CONF ( test code = 3514) NON-REACTIVE Henry F AustinGC AND CHLAMYDIA AMPLIFIED, [id number] 00:00:00* Test Item Value Reference Range Interpretation Comme nts GONORRHEA, TMA (test code = 71847) NEGATIVE CHLAMYDIA, TMA (test code = 87540) NEGATIVE Henry F AustinGC AND CHLAMYDIA AMPLIFIED, [id number] 00:00:00* Test Item Value Reference Range Interpretation Comme nts GONORRHEA, TMA (test code = 61530) NEGATIVE CHLAMYDIA, TMA (test code = 03279) NEGATIVE Henry F AustinHIV AB/AG COMBO RFLX [id number] 00:00:00* Test Item Value Reference Range Interpretation Comme nts HIV 1/2 4TH GEN, RFLX CONF ( test code = 3514) NON-REACTIVE Henry ContrerasLIPID [id number] 00:00:00* Test Item Value Reference Range Interpretation Comme nts CHOLESTEROL (test code = 2210) 186 MG/DL TRIGLYCERIDES (test code = 2232) 131 MG/DL HDL CHOLESTEROL (test code = 2220) 67 MG/DL CALC LDL CHOL (test code = 2237) 93 MG/DL RISK RATIO LDL/HDL (test cod e = 2238) 1.39 RATIO Henry ContrerasCBC W/AUTO [id number] 00:00:00* Test Item Value Reference Range Interpretation [...] code = 1015) 152 K/UL Henry ContrerasHEMOGLOBIN [id number] 00:00:00* Test Item Value Reference Range Interpretation Comme shaina HEMOGLOBIN A1c (test code = 36633) 5.2 % Henry [id number] 00:00:00* Test Item Value Reference Range Interpretation Comme nts TSH (test code = 2821) 2.020 UIU/ML Henry ContrerasCOMPREHENSIVE METABOLIC [id number] 00:00:00* Test Item Value Reference Range Interpretation Comme nts GLUCOSE (test code = 2217) 90 MG/DL BUN (test code = 2208) 21 MG/DL CREATININE (test code = 2214) 0.42 MG/DL eGFR AMER. (test cod e = 87507) 145 ML/MIN/1.73 eGFR NON- AMER. (test code = 60051) 126 ML/MIN/1.73 CALC BUN/CREAT (test code = [...] code = 2219) <5 U/L Henry ContrerasLIPID [id number] 00:00:00* Test Item Value Reference Range Interpretation Comme nts CHOLESTEROL (test code = 2210) 186 MG/DL TRIGLYCERIDES (test code = 2232) 131 MG/DL HDL CHOLESTEROL (test code = 2220) 67 MG/DL CALC LDL CHOL (test code = 2237) 93 MG/DL RISK RATIO LDL/HDL (test cod e = 2238) 1.39 RATIO Henry ContrerasCBC W/AUTO [id number] 00:00:00* Test Item Value Reference Range Interpretation [...] COUNT (test code = 1015) 152 K/UL Herny ContrerasHEMOGLOBIN [id number] 00:00:00* Test Item Value Reference Range Interpretation Comme shaina HEMOGLOBIN A1c (test code = 76525) 5.2 % Henry [id number] 00:00:00* Test Item Value Reference Range Interpretation Comme shaina TSH (test code = 2821) 2.020 UIU/ML Henry ContrerasCOMPREHENSIVE METABOLIC [id number] 00:00:00* Test Item Value Reference Range Interpretation Comme nts GLUCOSE (test code = 2217) 90 MG/DL BUN (test code = 2208) 21 MG/DL CREATININE (test code = 2214) 0.42 MG/DL eGFR AMER. (test cod e = 98766) 145 ML/MIN/1.73 eGFR NON- AMER. (test code = 72318) 126 ML/MIN/1.73 CALC BUN/CREAT (test code = [...] code = 2219) <5 U/L Henry ContrerasLIPID [id number] 00:00:00* Test Item Value Reference Range Interpretation Comme nts CHOLESTEROL (test code = 2210) 186 MG/DL TRIGLYCERIDES (test code = 2232) 131 MG/DL HDL CHOLESTEROL (test code = 2220) 67 MG/DL CALC LDL CHOL (test code = 2237) 93 MG/DL RISK RATIO LDL/HDL (test cod e = 2238) 1.39 RATIO Henry ContrerasCBC W/AUTO [id number] 00:00:00* Test Item Value Reference Range Interpretation [...] code = 1015) 152 K/UL Henry ContrerasHEMOGLOBIN [id number] 00:00:00* Test Item Value Reference Range Interpretation Comme shaina HEMOGLOBIN A1c (test code = 07755) 5.2 % Henry [id number] 00:00:00* Test Item Value Reference Range Interpretation Comme nts TSH (test code = 2821) 2.020 UIU/ML Henry ContrerasCOMPREHENSIVE METABOLIC [id number] 00:00:00* Test Item Value Reference Range Interpretation Comme nts GLUCOSE (test code = 2217) 90 MG/DL BUN (test code = 2208) 21 MG/DL CREATININE (test code = 2214) 0.42 MG/DL eGFR AMER. (test cod e = 29874) 145 ML/MIN/1.73 eGFR NON- AMER. (test code = 51087) 126 ML/MIN/1.73 CALC BUN/CREAT (test code = [...] code = 2219) <5 U/L Henry ContrerasLIPID [id number] 00:00:00* Test Item Value Reference Range Interpretation Comme nts CHOLESTEROL (test code = 2210) 186 MG/DL TRIGLYCERIDES (test code = 2232) 131 MG/DL HDL CHOLESTEROL (test code = 2220) 67 MG/DL CALC LDL CHOL (test code = 2237) 93 MG/DL RISK RATIO LDL/HDL (test cod e = 2238) 1.39 RATIO Henry ContrerasCBC W/AUTO [id number] 00:00:00* Test Item Value Reference Range Interpretation [...] code = 1015) 152 K/UL Henry ContrerasHEMOGLOBIN [id number] 00:00:00* Test Item Value Reference Range Interpretation Comme nts HEMOGLOBIN A1c (test code = 11616) 5.2 % Henry [id number] 00:00:00* Test Item Value Reference Range Interpretation Comme nts TSH (test code = 2821) 2.020 UIU/ML Henry ContrerasCOMPREHENSIVE METABOLIC [id number] 00:00:00* Test Item Value Reference Range Interpretation Comme nts GLUCOSE (test code = 2217) 90 MG/DL BUN (test code = 2208) 21 MG/DL CREATININE (test code = 2214) 0.42 MG/DL eGFR AMER. (test cod e = 80035) 145 ML/MIN/1.73 eGFR NON- AMER. (test code = 31898) 126 ML/MIN/1.73 CALC BUN/CREAT (test code = [...]
[2024-07-30 17:32] LABS: Absolute Basophils 0.1 K/uL (0-0.5); Absolute Eosinophils 0.2 K/uL (0-0.5); Absolute Lymphocytes (CBC) 2.3 K/uL (0.7-4.9); Absolute Monocytes 0.6 K/uL (0.1-1.3); Absolute Neutrophil 3.2 K/uL (1.8-8.0); Basophils % 1.4 % (0-1.3); Eosinophils % 2.7 % (0-4.4); Hematocrit 33.8 % (36.0-45.0); Hemoglobin 11.5 g/dL (12.0-15.0); Lymphocytes % 35.9 % (15.3-44.8); MCH 28.7 pg (27.0-35.0); MCHC 34.1 g/dL (32.0-36.0); MCV 84.1 fL (80-100); MPV 7.4 fL (7.6-11.3); Platelets 169 thou/uL (152-406); RBC Red Blood Cell Count 4.02 M/uL (3.86-4.86); Red Cell Distribution Width 15.9 % (12.1-15.2)
[2024-07-30 17:57] LABS: Albumin 2.9 g/dL (3.4-5.0); Albumin/Globulin Ratio 0.6 (1.1-1.8); Anion Gap 9.1 mEq/L (5.0-15.0); Bilirubin Total 0.2 mg/dL (0.2-1.0); Globulin 4.6 g/dL (2.3-3.5); Potassium 4.1 mEq/L (3.5-5.1); Protein, Total 7.5 g/dL (6.4-8.2)
--- NOTE | 2024-07-30 18:07 | EDPHYS ---
Physician Documentation [facility] Name: Davida Hodges Age: 49 yrs Sex: Female : 1975 Arrival Date: 07/30/2024 Time: 14:15 Bed DX5 Private MD: ED Physician Pascual Lundy HPI: 07/30 16:29 This 49 yrs old Female presents to ER via Ambulatory with complaints of ry Palpitations. 16:29 The patient presents with a history of irregular heart beat, heart racing. Context: The ry symptoms occur at rest, with anxiety. Onset: The symptoms/episode began/occurred today. Duration: The patient or guardian reports multiple episodes, that have now resolved. Modifying factors: The symptoms are aggravated by nothing. The symptoms are alleviated by nothing. Associated signs and symptoms: Pertinent positives: anxiety. Severity of symptoms: At their worst the symptoms were mild in the emergency department the symptoms have improved. The patient has experienced similar episodes in the past, a few times. STATIONS SUPERINTENDENT: 14:36 LMP N/A - Post-menopause, Not me1 Historical: - Allergies: 14:36 CARBAMAZEPINE DERIVATIVES; me1 14:36 Depakote; me1 14:36 Tegretol; me1 - PMHx: 14:36 Seizure; me1 - PSHx: 14:36 None; me1 - Immunization history:: Adult Immunizations unknown. - Infectious Disease History:: Denies. - Social history:: Smoking status: Patient denies any tobacco usage or history of. - Family history:: not pertinent. ROS: 16:29 Constitutional: Negative for fever, chills, and weight loss, Eyes: Negative for injury, ry pain, redness, and discharge, ENT: Negative for injury, pain, and discharge, Neck: Negative for injury, pain, and swelling, Respiratory: Negative for shortness of breath, cough, wheezing, and pleuritic chest pain, Abdomen/GI: Negative for abdominal pain, nausea, vomiting, diarrhea, and constipation, Back: Negative for injury and pain, : Negative for injury, bleeding, discharge, and swelling, MS/Extremity: Negative for injury and deformity, Skin: Negative for injury, rash, and discoloration, Neuro: Negative for headache, weakness, numbness, tingling, and seizure, Psych: Negative for depression, anxiety, suicide ideation, homicidal ideation, and hallucinations, Allergy/Immunology: Negative for hives, rash, and allergies, Endocrine: Negative for neck swelling, polydipsia, polyuria, polyphagia, and marked weight changes, Hematologic/Lymphatic: Negative for swollen nodes, abnormal bleeding, and unusual bruising, 16:29 Cardiovascular: Positive for chest pain, palpitations, Exam: 16:30 Constitutional: This is a well developed, well nourished patient who is awake, alert, ry and in no acute distress. Head/Face: Normocephalic, atraumatic. Eyes: Pupils equal round and reactive to light, extra-ocular motions intact. Lids and lashes normal. Conjunctiva and sclera are non-icteric and not injected. Cornea within normal limits. Periorbital areas with no swelling, redness, or edema. ENT: Nares patent. No nasal discharge, no septal abnormalities noted. Tympanic membranes are normal and external auditory canals are clear. Oropharynx with no redness, swelling, or masses, exudates, or evidence of obstruction, uvula midline. Mucous membranes moist. Neck: Trachea midline, no thyromegaly or masses palpated, and no cervical lymphadenopathy. Supple, full range of motion without nuchal rigidity, or vertebral point tenderness. No Meningismus. Chest/axilla: Normal chest wall appearance and motion. Nontender with no deformity. No lesions are appreciated. Cardiovascular: Regular rate and rhythm with a normal S1 and S2. No gallops, murmurs, or rubs. Normal PMI, no JVD. No pulse deficits. Respiratory: Lungs have equal breath sounds bilaterally, clear to auscultation and percussion. No rales, rhonchi or wheezes noted. No increased work of breathing, no retractions or nasal flaring. Abdomen/GI: Soft, non-tender, with normal bowel sounds. No distension or tympany. No guarding or rebound. No evidence of tenderness throughout. Back: No spinal tenderness. No costovertebral tenderness. Full range of motion. Skin: Warm, dry with normal turgor. Normal color with no rashes, no lesions, and no evidence of cellulitis. MS/ Extremity: Pulses equal, no cyanosis. Neurovascular intact. Full, normal range of motion., bilateral aka Neuro: Awake and alert, GCS 15, oriented to person, place, time, and situation. Cranial nerves II-XII grossly intact. Motor strength 5/5 in all extremities. Sensory grossly intact. Cerebellar exam normal. Normal gait. Psych: Awake, alert, with orientation to person, place and time. Behavior, mood, and affect are within normal limits. 16:30 Musculoskeletal/extremity: ROM: no acute changes, intact in all extremities, full active range of motion, full passive range of motion, Circulation is intact in all extremities. Sensation intact. Compartment Syndrome exam of affected extremity: is normal. Weight bearing: able to fully bear weight, DVT Exam: No signs of deep vein thrombosis. no pain, no swelling, no tenderness, negative Homans' sign noted on exam, no appreciated bluish discoloration, no erythema, no increased warmth, Vital Signs: 14:34 BP 114 / 72; Pulse 62; Resp 16; Temp 98.4; Pulse Ox 99% ; Weight 70.9 kg; Pain 10/10; me1 14:34 Pain Scale: Adult me1 MDM: 14:29 Medical Screening Exam initiated ry 18:10 MITESH Risk Score: Total Score = 0. Differential diagnosis: arrythmia, dehydration. Data [facility] reviewed: vital signs, nurses notes, lab test result(s), EKG, radiologic studies, plain films. Consideration of Admission/Observation Escalation of care including admission/observation considered. I considered the following discharge prescriptions or medication management in the emergency department Medications were administered in the Emergency Department. See MAR. Independent interpretation of the following test(s) in the Emergency Department EKG: See my EKG interpretation above. Test considered but Not performed: Ultrasound NO 2 D ECHO. Historians other than the Patient: Family Member: FAMILY WELL INFORMED. Care significantly affected by the following chronic conditions: SEIZURE DO. Counseling: I had a detailed discussion with the patient and/or guardian regarding the historical points, exam findings, and any diagnostic results supporting the discharge/admit diagnosis, lab results, radiology results, the need for outpatient follow up, for definitive care, a coil finisher, a family practitioner. 07/30 14:30 Order name: CBC with Diff; Complete Time: 18:03 [facility] 07/30 14:30 Order name: Comprehensive Metabolic Panel; Complete Time: 18:03 [facility] 07/30 14:30 Order name: TSH; Complete Time: 18: [facility] 07/30 16:27 Order name: Troponin High Sensitivity; Complete Time: 18:23 [facility] 07/30 17:33 Order name: Chest Pa And Lat (2 Views) XRAY [facility] 07/30 14:30 Order name: EKG - Nurse/Tech; Complete Time: 17:51 [facility] 07/30 18:03 Order name: PO challenge; Complete Time: 18:27 [facility] Administered Medications: 19:33 Not Given (Patient Refused): ns 0.9% 500 ml 500 ml IV at 1 bolus once; to be given as a iw bolus over 30 minutes 19:33 Not Given (Patient Refused): aspirinchewable tablet 81 mg PO once iw Disposition Summary: 07/30/24 18:06 Discharge Ordered Notes: Location: Home ry Problem: new ry Symptoms: have improved ry Condition: Stable ry Diagnosis - Palpitations ry - Hypo-osmolality and hyponatremia ry - Bradycardia, unspecified ry Followup: ry - With: Private Physician - When: 2 - 3 days - Reason: Recheck today's complaints, Continuance of care, Re-evaluation by your physician Followup: ry - With: Magdy Avelar MD - When: 2 - 3 days - Reason: Recheck today's complaints, Re-evaluation by your physician Discharge Instructions: - Discharge Summary Sheet ry - Bradycardia, Adult ry - Hyponatremia ry - Palpitations ry - Hyponatremia, [id number] ry - Aspirin and Your Heart ry - Palpitations, [id number] ry Forms: - Medication Reconciliation Form ry - Antibiotic Education ry - Prescription Opioid Use ry - Patient Portal Instructions ry - Leadership Thank You Letter ry Signatures: Dispatcher [employer] EDPascual Rosas MD MD [facility] Lola Davies RN RN de1 Laila Foreman RN Corrections: (The following items were deleted from the chart) 14:31 14:31 CBC+H.LAB.BRZ ordered. EDMS EDMS 14:31 14:31 COMPREHENSIVE METABOLIC PANEL+C.LAB.BRZ ordered. EDIA EDMS 14:31 14:31 THYROID STIMULAT HORMONE+C.LAB.BRZ ordered. EDMS EDMS 14:31 14:31 Urinalysis+U.LAB.BRZ ordered. EDIA EDMS 14:31 14:31 Test, Urine+UC.LAB.BRZ ordered. EDIA EDMS 14:31 14:31 URINE DRUG SCREEN+UC.LAB.BRZ ordered. EDMS EDMS
--- NOTE | 2024-07-30 18:07 | ER ---
Nurse's Notes [facility] Name: Davida Hodges Age: 49 yrs Sex: Female : 1975 Arrival Date: 07/30/2024 Time: 14:15 Bed DX5 Private MD: Diagnosis: Palpitations;Hypo-osmolality and hyponatremia;Bradycardia, unspecified Presentation: 07/30 14:34 Chief complaint: stated patient started having palpitations last night. c/o chest pain me1 04/02. Coronavirus screen: At this time, the client does not indicate any symptoms associated with coronavirus-19. Ebola Screen: No symptoms or risks identified at this time. Initial Sepsis Screen: Does the patient meet any 2 criteria? No. Patient's initial sepsis screen is negative. Does the patient have a suspected source of infection? No. Patient's initial sepsis screen is negative. Risk Assessment: Do you want to hurt yourself or someone else? Patient reports no desire to harm self or others. Onset of symptoms was July 29, 2024. 14:34 Method Of Arrival: Ambulatory mo1 14:34 Acuity: CARMITA 3 me1 Triage Assessment: 07/29 19:10 General: Appears in no apparent distress. Behavior is calm, cooperative. 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 - Infectious Disease History:: Denies. - Social history:: Smoking status: Patient denies any tobacco usage or history of. - Family history:: not pertinent. Screenin:52 [facility] ED Fall Risk Assessment (Adult) History of falling in the last 3 months, iw including since admission Yes- single mechanical fall (1 pt) Confusion or Disorientation No (0 pts) Intoxicated or Sedated No (0 pts) Impaired Gait No (0 pts) Mobility Assist Device Used No (0 pt) Altered Elimination No (0 pt) Score/Fall Risk Level 0 - 2 = Low Risk Oriented to surroundings, Maintained a safe environment. Abuse screen: Denies threats or abuse. Nutritional screening: No deficits noted. Tuberculosis screening: No symptoms or risk factors identified. Assessment: 17:52 Reassessment: Patient appears in no apparent distress at this time. Patient and/or iw family updated on plan of care and expected duration. Pain level reassessed. Patient is alert, oriented x 3, equal unlabored respirations, skin warm/dry/pink. 19:24 Reassessment: Patient appears in no apparent distress at this time. Patient and/or iw family updated on plan of care and expected duration. Pain level reassessed. Patient is alert, oriented x 3, equal unlabored respirations, skin warm/dry/pink. Vital Signs: 14:34 BP 114 / 72; Pulse 62; Resp 16; Temp 98.4; Pulse Ox 99% ; Weight 70.9 kg; Pain 10/10; me1 14:34 Pain Scale: Adult mo1 ED Course: 14:17 Patient arrived in ED. 14:29 Pascual Lundy MD is Attending Physician. [facility] 14:36 Triage completed. mo1 14:36 Arm band placed on Patient placed in an exam room. mo1 17:10 Laila Foreman, RN is Primary Nurse. iw 17:27 Initial lab(s) drawn, by mo, sent to lab. Inserted saline lock: 24 gauge in right hand, iw using aseptic technique. Blood collected. Flushed with 10 mL NS. 18:06 Magdy Avelar MD is Referral Physician. [facility] 18:12 Chest Pa And Lat (2 Views) XRAY In Process Unspecified. EDNY 19:32 No provider procedures requiring assistance completed. IV discontinued, intact, iw bleeding controlled, No redness/swelling at site. Pressure dressing applied. Administered Medications: 19:33 Not Given (Patient Refused): ns 0.9% 500 ml 500 ml IV at 1 bolus once; to be given as a iw bolus over 30 minutes 19:33 Not Given (Patient Refused): aspirinchewable tablet 81 mg PO once iw Medication: 17:52 VIS not applicable for this client. iw Outcome: 18:06 Discharge ordered by . [facility] 19:33 Patient left the ED. iw Signatures: Dispatcher [employer] Pascual Gamble MD MD cha Williams, Irene, RN RN Shonna Phillip Lola Davies RN RN me1
--- NOTE | 2024-07-30 18:59 | RAD REPORT ---
EXAMINATION: TWO VIEW CHEST XR CLINICAL INDICATION: Female, 49 years old. [facility] MAIN CHEST PAIN Bed Name: [id number] TECHNIQUE: 2 view radiographs of the chest were performed. COMPARISON: 07/09/2024 FINDINGS: The lungs are well inflated and clear. No pneumothorax or sizable effusion. The heart is normal in si ze. Mediastinal contours are unremarkable. IMPRESSION: No acute or significant abnormalities.
[2024-07-30 19:56] VITALS: BP 114/72; TEMP 98.4; O2SAT 99
--- NOTE | 2024-07-31 13:40 | EKG ---
Test Date: 2024-07-30 Test Time: 17:48:12 Cemetery Counselor: BLAIRE MEASUREMENT RESULTS: Intervals: Rate: 56 IL: 156 QRSD: 92 QT: 340 QTc: 328 Jakin: P: 32 IL: 156 QRS: 3 T: 161 INTERPRETIVE STATEMENTS: Sinus bradycardia ST & T wave abnormality, consider lateral ischemia Abnormal ECG Compared to ECG 07/09/2024 12:24:58 ST (T wave) deviation now present Possible ischemia now present Sinus rhythm no longer present T-wave abnormality no longer present Electronically Signed On 07-31-24 13:38:12 ENVIRONMENTAL ADVISOR by Magdy Avelar
== END 2024-07-30 19:33 | disposition home or self-care (01) ==
LOC: ER 14:15
DX: R00.2 Palpitations (principal); E87.1 Hypo-osmolality and hyponatremia; R00.1 Bradycardia, unspecified
CPT/HCPCS: 36415; 71046; 80053; 84443; 84484; 85025; 93005; 99283

== ENCOUNTER 2024-08-03 11:22 | Emergency (ER) | payer SELFPAY ==
--- OUTSIDE RECORDS SUMMARY | 2024-08-03 11:32 | XMS REPORT | Continuity of Care Document ---
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 [facility] XR CERVICAL SPINE 2 VW 2019-07-14 02:43:00 Ivory Owen [facility] XR ELBOW <3 VW LEFT 2019-07-14 02:43:00 Henry Owen [facility] XR KNEE <3 VW RIGHT 2019-07-14 02:43:00 Henry Owen [facility] XR SHOULDER <2 VW LEFT 2019-07-14 02:43:00 Ivory Owen [facility] [id number] Ecg Routine Ecg W/least 12 Lds W/i r 2017-09-24 00:00:00 Henry Contreras Encounters Start Date/Time End Date/Time Encounter Type Admission Type Attending [facility] Care Department Encounter ID Source 2022-11-13 13:10:28 Inpatient CATHIE BRAND [id number] [facility] 2022-11-05 09:23:13 Inpatient CATHIE BRAND [id number] [facility] 2024-07-23 14:05:55 2024-07-23 14:05:55 Outpatient SFA SFA [id number] Henry Contreras 2024-07-23 00:00:00 2024-07-23 00:00:00 Outpatient Visit SFA [id number] Henry Contreras 2024-07-08 14:39:39 2024-07-08 14:39:39 Outpatient SFA SFA 5 Henry Contreras 2024-07-07 15:49:36 2024-07-07 15:49:36 Outpatient SFA SFA 4 Henry Contreras 2024-04-15 15:38:37 2024-04-15 15:38:37 Outpatient SFA SFA [id number] Henry Contreras 2024-02-24 00:00:00 2024-02-24 00:00:00 Outpatient Visit SFA [id number] Henry Contreras 2024-02-06 11:12:07 2024-02-06 11:12:07 Outpatient [...] 2023-11-25 00:00:00 2023-11-25 00:00:00 Outpatient Visit SFA [id number] Henry Contreras 2023-11-23 19:45:00 2023-11-24 19:04:00 [facility].16.840.1. [id number] [facility]) 2023-11-21 19:00:00 2023-11-22 01:00:00 Emergency ER ARLEN [facility]AGU[facility]S [id number] [facility] 2023-11-16 23:05:00 2023-11-21 17:28:00 Inpatient ER JUAN MIGUEL PR[id number] [facility] 2023-11-15 16:24:00 2023-11-15 22:54:00 Emergency ER MELVINA SHEPHERD CHRTJP CHRTJP [id number] [facility] Pamela Ro [facility] 2023-10-28 12:27:38 2023-10-28 12:27:38 Outpatient SFA SFA [id number] Henry Quiles Ben 2023-10-25 15:44:11 2023-10-25 15:44:11 Outpatient SFA [facility] 3 Henry Quiles Ben 2023-10-25 00:00:00 2023-10-25 00:00:00 Outpatient Visit [facility] [id number] Henry Contrears 2023-10-04 15:25:52 2023-10-04 15:25:52 Outpatient SFA [facility] [id number] Henry Contreras 2023-10-01 00:00:00 2023-10-01 00:00:00 Telephone Indio Phelan [facility] 1.2.840.114 350.1.13.10 4.2.7.2.686 [id number] [facility] 2023-09-16 16:03:08 2023-09-16 16:03:08 Outpatient SFA [facility] [id number] Henry Contreras 2023-08-01 10:00:49 2023-08-01 10:00:49 Outpatient [facility] [id number] Henry Quiles Ben 2023-07-23 14:20:00 2023-07-23 16:57:02 Outpatient Abner TAPANINDIO [facility] [id number] [facility] 2023-07-23 14:20:00 2023-07-23 16:57:02 Office Visit Indio Phelan [facility] 1.2.840.114 350.1.13.10 4.2.7.2.686 [id number] [facility] 2023-07-23 00:00:00 2023-07-23 00:00:00 Orders Only Doctor Unassigned[place] [facility] 1..840.114 350.1.13.10 4.2.7.2.686 [id number] [facility] 2023-07-04 16:48:23 2023-07-04 16:48:23 Outpatient SFA [facility] [id number] Henry Contreras 2023-06-18 10:35:36 2023-06-18 10:35:36 Outpatient [facility] [id number] Henry Contreras 2023-06-05 00:00:00 2023-06-05 00:00:00 Orders Only Doctor Unassigned[place] [facility] 1.2.840.114 350.1.13.10 4.2.7.2.686 [id number] [facility] 2023-06-04 16:00:39 2023-06-04 16:00:39 Outpatient [facility] [id number] Henry Contreras 2023-05-24 15:38:52 2023-05-24 15:38:52 Outpatient [facility] [id number] Henry Contreras 2023-05-22 00:00:00 2023-05-22 00:00:00 Letter (Out) Neurology [facility] 1.2.840.114 350.1.13.10 4.2.7.2.686 [id number] [facility] 2023-05-20 00:00:00 2023-05-20 00:00:00 Orders Only Doctor Unassigned[place] [facility] 1.2.840.114 350.1.13.10 4.2.7.2.686 [id number] [facility] 2023-05-17 15:07:14 2023-05-17 15:07:14 Outpatient [facility] [id number] Henry Quiles Ben 2023-03-02 12:27:43 2023-03-02 12:27:43 Outpatient [facility] [id number] Henry Quiles Ben 2023-01-09 17:11:26 2023-01-09 17:11:26 Outpatient [facility] [id number] Henry Quiles Ben 2022-11-04 14:04:00 2022-11-05 11:09:00 Emergency [facility]CON [facility] [id number] [facility] 2022-09-24 12:33:00 2022-09-24 12:51:00 Emergency Heri Snow [facility] 1.2.840.114 350.1.13.10 4.2.7.2.686 [id number] [facility] 2022-09-22 00:00:00 2022-09-22 00:00:00 Nurse Triage Marisa barclay Madhavi Mota [facility] 1.2840.114 350.1.13.10 4.2.7.2.686 [id number] [facility] 2022-09-18 10:09:00 2022-09-19 14:28:00 Inpatient EM Marly Mendenhall [facility] OBSE [id number] [facility] 2022-09-16 22:50:00 2022-09-17 01:40:00 Emergency EM Asim Jack [facility] FABI [id number] [facility] 2022-09-14 14:52:00 2022-09-15 14:00:00 Inpatient EM Vladimir Forbes [facility] TELE [id number] [facility] 2022-09-13 09:34:00 2022-09-13 13:00:00 Emergency EM Brad Woodall [facility] FABI [id number] [facility] 2022-09-10 23:39:00 2022-09-11 11:28:00 Emergency EM Russel Sewell [facility] [id number] [facility] Mart[facility] 2022-09-10 18:57:00 2022-09-10 20:20:00 Emergency Lisa Morfin Whitney [facility] 1.2.840.114 350.1.13.10 4.2.7.2.686 [id number] [facility] 2022-09-10 18:57:00 2022-09-10 20:20:00 Emergency SANDRITA CHÁVEZ [facility] ERT [id number] [facility] 2022-09-09 20:45:00 2022-09-09 22:46:00 Emergency X SANDRITA KEY [facility] ERT [id number] [facility] 2022-09-09 20:45:00 2022-09-09 22:46:00 Emergency Sandrita Key [facility] 1.840.114 350.1.13.10 4.2.7.2.686 [id number] [facility] 2022-09-06 18:09:00 2022-09-07 00:51:00 Emergency X TAYO BOYD [facility] ERT [id number] [facility] 2022-09-06 18:09:00 2022-09-07 00:51:00 Emergency Juan FranciscoTayo ochoa [facility] 1.840.114 350.1.13.10 4.2.7.2.686 [id number] [facility] 2022-08-21 14:11:33 2022-08-21 14:11:33 Outpatient [facility] [id number] Henry Quiles [place] 2022-07-17 15:03:48 2022-07-17 15:03:48 Outpatient [facility] [id number] Henry Quiles Ben 2021-10-02 15:56:00 2021-10-02 19:00:00 Emergency X JAVED FRANK [facility] ERT [id number] [facility] 2021-10-02 15:56:00 2021-10-02 19:00:00 Emergency Javed Frank [facility] 1.840.114 350.1.13.10 4.2.7.2.686 [id number] [facility] 2021-05-05 13:22:00 2021-05-05 14:48:00 Emergency X CARLENE NUNEZIP [facility] ERT [id number] [facility] 2021-05-05 13:22:00 2021-05-05 14:48:00 Emergency Deon Nunez [facility] 1..840.114 350.1.13.10 4.2.7.2.686 [id number] [facility] 2021-05-05 00:00:00 2021-05-05 00:00:00 Orders Only Doctor Unassigned[place] [facility] 1.2.840.114 350.1.13.10 4.2.7.2.686 [id number] [facility] 2019-12-15 17:11:56 2019-12-15 18:04:00 Emergency Kp Gilliland [facility] 1.2.840.114 350.1.13.10 4.2.7.2.686 [id number] [facility] 2019-12-15 17:11:56 2019-12-15 18:04:00 Emergency Kp Gilliland [facility] 1.2.840.114 350.1.13.10 4.2.7.2.686 [id number] 2019-12-15 17:11:56 2019-12-15 17:11:56 Emergency X Kp GILLILAND [facility] ERT [id number] [facility] 2019-10-25 18:31:31 2019-10-25 19:21:00 Emergency Kristin iMller [facility] 1.2.840.114 350.1.13.10 4.2.7.2.686 [id number] [facility] 2019-10-25 18:31:31 2019-10-25 19:21:00 Emergency Kristin Miller [facility] 1.2.840.114 350.1.13.10 4.2.7.2.686 [id number] 2019-10-25 18:31:31 2019-10-25 18:31:31 Emergency X KRISTIN MILLER [facility] ERT [id number] [facility] 2019-08-13 13:30:00 2019-08-13 14:36:00 Emergency Floridalma Evans [facility] 1.2.840.114 350.1.13.10 4.2.7.2.686 [id number] [facility] 2019-08-13 13:30:00 2019-08-13 14:36:00 Emergency X FLORIDALMA EVANS [facility] ERT [id number] [facility] 2019-08-13 13:30:00 2019-08-13 14:36:00 Emergency Floridalma Evans [facility] 1.2.840.114 350.1.13.10 4.2.7.2.686 [id number] 2019-07-22 13:42:11 2019-07-22 19:02:00 Emergency X LISA MORFIN [facility] ERT [id number] [facility] 2019-07-22 13:42:11 2019-07-22 19:02:00 Emergency Unknown, Attending Lisa Morfin [facility] 1.2.840.114 350.1.13.10 4.2.7.2.686 [id number] [facility] 2019-07-22 13:42:11 2019-07-22 19:02:00 Emergency Unknown, Attending Lisa Morfin [facility] 1.2.840.114 350.1.13.10 4.2.7.2.686 [id number] 2019-07-13 20:17:19 2019-07-13 21:48:00 Emergency X HENRY OWEN [facility] ERT [id number] [facility] 2019-07-13 20:17:19 2019-07-13 21:48:00 Emergency Trena Henry [facility] 1.2.840.114 350.1.13.10 4.2.7.2.686 [id number] [facility] 2019-07-10 14:26:03 2019-07-10 16:33:00 Emergency X DEBBIE PAYTON [facility] ERT [id number] [facility] 2019-07-10 14:26:03 2019-07-10 16:33:00 Emergency Debbie Payton [facility] 1.2.840.114 350.1.13.10 4.2.7.2.686 [id number] [facility] 2019-07-04 19:09:02 2019-07-04 22:51:00 Emergency X LISA MORFIN [facility] ERT [id number] [facility] 2019-06-30 10:33:08 2019-06-30 13:10:00 Emergency X DEON NUNEZ [facility] ERT [id number] [facility] 2019-05-25 11:58:19 2019-05-25 15:37:00 Emergency X DEON NUNEZ [facility] ERT [id number] [facility] 2019-04-09 22:29:37 2019-04-09 23:28:00 Emergency X FLORIDALMA EVANS [facility] ERT [id number] [facility] 2019-01-21 18:38:01 2019-01-21 19:59:00 Emergency Le Ramirez [facility] 1.2.840.114 350.1.13.10 4.2.7.2.686 [id number] [facility] 2019-01-21 18:38:01 2019-01-21 19:59:00 Emergency Le Ramirez [facility] 1.2.840.114 350.1.13.10 4.2.7.2.686 [id number] Results Test Description Test Time Test Comments Results Result Co mments Source Henry Griffin, THIRD [id number] 00:00:00* Test Item Value Reference Range Interpretation Comme nts TSH, THIRD GENERATION (test code = 2821) 3.970 UIU/ML Henry LedesmaPATRICIA [id number] 04:20:00* Test Item Value Reference Range Interpretation Comme nts FT4 (test code = FT4) 1.05 ng/dL 0.78-2.19 T3 [id number] 04:20:00* Test Item Value Reference Range Interpretation Comme nts T3UP (test code = T3UP) 40.9 % 23.5-40.5 H Thyroxine (T4) free index in Serum or [id number] 04:19:00* Test Item Value Reference Range Interpretation Comme nts Thyroxine (T4) free index in Serum or Plasma (test code = 42343-5) 1.05 ng/dL 0.78-2.19 N [facility])Thyroid hormone uptake (T-uptake) in Serum or P 2023-11-24 04:18:00* Test Item Value Reference Range Interpretation Comme nts Thyroid hormone uptake (T-up take) in Serum or Plasma (test code = 84045-7) 40.9 % 23.5-40.5 H [facility])URINE DRUG [id number] 00:43:00* Test Item Value Reference Range Interpretation [...] abuse 5 panel - Urine by Screen [id number] 00:40:00 NegativeNegativeNegativeNegativeNegativeNegativeNegative[facility])[id number] 00:33:00* Test Item Value Reference Range Interpretation [...] /HPF 0-2 Urinalysis panel - Urine by [id number] 00:33:00* Test Item Value Reference Range Interpretation Comme nts Ketones [Presence] in Urine (test code = 87745-4) 15 MG/DL NEG N pH of Urine (test code = 2756-5) 5.5 1 5.0-7.5 N Urobilinogen [Presence] in U rine (test code = 09564-3) 0.2 EU/DL 0.2-1.0 N Specific gravity of Urine (t est code = 2965-2) 1.013 1 1.0-1.025 N Leukocytes [Presence] in Uri ne sediment by Light microscopy (test code = 57112-9) 10 /HPF 0.0-5.0 H Erythrocytes [Presence] in U rine sediment by Light microscopy (test code = 30456-1) 2 /HPF 0.0-2.0 N [facility]VITAMIN [id number] 22:47:00* Test Item Value Reference Range Interpretation Comme nts B12 (test code = B12) 880 pg/mL 239-931 [id number] 22:47:00* Test Item Value Reference Range Interpretation Comme nts FOLATE (test code = FOLATE) 8.9 ng/mL 2.76-20.0 THYROID STIMULATION [id number] 22:47:00* Test Item Value Reference Range Interpretation Comme nts TSH (test code = TSH) 6.62 UIU/ML 0.465-4.68 H Cobalamin (Vitamin B12) [Mass/volume] in [id number] 22:47:00* Test Item Value Reference Range Interpretation Comme nts Cobalamin (Vitamin B12) [Mass/volume] in Serum or Plasma (test code = 2132-9) 880 pg/mL 239.0-931.0 N [facility])Folate [Mass/volume] in Serum or [id number] 22:47:00* Test Item Value Reference Range Interpretation Comme nts Folate [Mass/volume] in Seru m or Plasma (test code = 2284-8) 8.9 ng/mL 2.76-20.0 N [facility])Thyrotropin in Serum or [id number] 22:47:00* Test Item Value Reference Range Interpretation Comme nts Thyrotropin in Serum or Plas ma (test code = 66274-5) 6.62 UIU/ML 0.465-4.68 H [facility])ER SCREEN FOR HIV 1/ 22:46:00* Test Item Value Reference Range Interpretation Comme [facility] HIV 1/2 AB (test code = SCRN HIV) NEGATIVE NEGATIVE This test is us ed for SCREENING purposes only. All reactive results are prelimenary and confirmation results will follow. HIV 1+2 Ab [Units/volume] in [id number] [facility]:45[facility]HEPATITIS C ANTIBODY [id number] 22:28:00* Test Item Value Reference Range Interpretation Comme nts SCRN HCV (test code = SCRN HCV) NEGATIVE NEGATIVE Hepatitis C Anti body test is for screening purposes only. All reactives will be confirmed by additional testing. Hepatitis C virus Ab [Presence] in [id number] 22:27:00[facility]B-HCG QUAL (KIT)2023-11-23 22:01:00* Test Item Value Reference Range Interpretation Comme nts HCGQUAL (test code = HCGQUAL) NEGATIVE NEGATIVE URINE: NEGATIVE = < 20 mIU/ML; POSITIVE= >/= 20 mIU/ML SERUM: NEGATIVE = < 10 mIU/ML; POSITIVE= >/= 10 mIU/ML SOURCE (test code = SOURCE) SERUM HCG INTERNAL POSITIVE CNTRL (test code = HCGIPC) PASS PASS HCG LOT # (test code = UHCGLOT) 199668 HCG EXPIRATION DATE (test code = UHCGEXP) Choriogonadotropin.beta subunit ( [id number] 22:01:00* Test Item Value Reference Range Interpretation Comme nts Specimen source [Identifier] of Body fluid (test code = 78216-2) SERUM N Reagent Lot number (test cod e = 03729-0) 1 N [facility])CT HEAD W/O [id number] 22:00:00 [facility] 1975 Sex: F[address] [id number] IMAGING REPORTPatient Name: JONATHAN JONESDate of Service: [id number]: 48 Sex: F Order #: [id number] Room: ERSDOB: 1975 X-Ray Number: [id number] Record Number: [id number] Hospital Number: [id number] Physician: LAWRENCE MEJIASOrdering Physician: LAWRENCE MEJIASPROCEDURE: CTHEAD [...] 21:59:03CT Head and Orbit - bilateral WO [id number] 21:59:03 ORDER 1400: CT HEAD W/O CONT (LOINC: 80216-2)ORDER DATE: November 24, 2023 12:50:00 AM [facility]CT ABDOMEN/PELVIS [id number] 21:54:00 [facility] CONCEPTION : 1975 Sex: F[address] [id number] IMAGING REPORTPatient Name: ROBERT, CONCEPTIONDate of Service: 05-40-2670Tnm: 48 Sex: F Order #: [id number] Room: ERSDOB: 1975 X-Ray Number: [id number] Record Number: [id number] Hospital Number: [id number] Physician: LAWRENCE MEJIASOrdering Physician: LAWRENCE MEJIASPROCEDURE: CT [...] YUNIOR MCKEON 2023-11-23 21:53:03 CT Abdomen and [id number] 21:53:03ORDER 1500: CT ABDOMEN/PELVIS WITHOUT (LOINC: 94633-1)ORDER DATE: November 24, 2023 12:50:00 AM [facility])[id number] 21:31:00* Test Item Value Reference Range Interpretation [...] 70-99 Fasting glucos e normal <100 MG/DL- [employer] recommendation CALCIUM (test code = [...] of age is not validated by the relay associate and may not represent the patients true [...] should be used in the calculation". CREATINE [id number] 21:31:00* Test Item Value Reference Range Interpretation Comme nts CK (test code = CK) 115 U/L 30-135 BLOOD ALCOHOL (ETOH)2023-11-23 21:31:00* Test Item Value Reference Range Interpretation Comme nts ALCOHOL BLOOD LEVEL (test code = ALC BLD) <10 MG/DL 0-10 Results ar e to be used for medical purposes (treatment) only. Not intended for non medical purposes. Ethanol [Mass/volume] in [id number] 21:30:00* Test Item Value Reference Range Interpretation Comme nts Ethanol [Mass/volume] in Blo od (test code = 5640-8) <10 0.0-10.0 [facility])Creatine kinase isoenzymes [interpretation] in 2023-11-23 21:30:00* Test Item Value Reference Range Interpretation Comme nts Creatine kinase isoenzymes [interpretation] in Serum or Plasma Narrative (test code = 35580-3) 115 U/L 30.0-135.0 [facility])Comprehensive metabolic 2000 panel - Serum or P 2023-11-23 21:27:00* Test Item Value Reference Range Interpretation Comme nts Sodium [Moles/volume] in Blood (test code = 2947-0) 137 MMOL/L 137.0-145.0 N Potassium [Moles/volume] in Blood (test code = 6298-4) 4.2 MMOL/L 3.5-5.1 N Chloride [Moles/volume] in Blood (test code = 2069-3) 100 MMOL/L 98.0-107.0 N Carbon dioxide, total [Moles/volume] in Blood (test code = 58010-6) 24 MMOL/L 22.0-30.0 N Urea nitrogen [Mass/volume] in Serum or Plasma (test code = 3094-0) 16 MG/DL 7.0-17.0 N Creatinine [Mass/volume] in Blood (test code = 74657-8) 0.6 MG/DL 0.7-1.2 L Glucose [Mass/volume] in Blood (test code = 2339-0) 80 MG/DL 70.0-99.0 N Calcium [Mass/volume] in Serum or Plasma (test code = 91713-9) 10.3 MG/DL 8.4-10.2 H Protein [Mass/volume] in Serum or Plasma (test code = 2885-2) 9.9 G/DL 6.3-8.2 H Albumin [Presence] in Serum or Plasma (test code = 77719-0) 4.7 G/DL 3.5-5.0 N Bilirubin direct and total panel [Mass/volume] - Serum or Plasma (test code = 96607-6) 0.8 MG/DL 0.2-1.3 N Aspartate aminotransferase [Enzymatic [...] 50 percent [- Reported] (test code = 69422-0) 113.0 mL/min/1.73m2 N Anion gap in Serum or Plasma (test code = 61963-9) 13 mmol/L 4.0-12.0 H [facility])[id number] 21:15:00* Test Item Value Reference Range Interpretation [...] 1.2-7.2 CBC W Auto Differential panel - [id number] 21:15:00* Test Item Value Reference Range Interpretation Comme nts Leukocytes other [Identifier ] in Blood by Automated count (test code = 10300-3) 4.5 K/UL 3.5-10.9 N Erythrocytes [#/volume] in B lood (test code = 77628-2) 4.91 M/UL 4.0-5.0 N Hemoglobin A/Hemoglobin.tota l in Blood (test code = 4546-8) 13.8 G/DL 11.5-15.5 N Hematocrit [Volume Fraction] of Blood (test code = 62399-7) 42.4 % 34.0-46.0 N Erythrocyte mean corpuscular volume [Entitic volume] (test code = 92914-0) 86.4 FL 80.0-98.0 N Erythrocyte mean corpuscular hemoglobin [Entitic mass] (test code = 45062-0) 28.1 PG 28.0-32.0 N Erythrocyte mean corpuscular hemoglobin concentration [Mass/volume] (test code = 23402-4) 32.5 G/DL 32.5-36.5 N Erythrocyte distribution wid th [Ratio] (test code = 19124-5) 14.9 % 11.5-14.5 H Platelets panel - Blood by Automated count (test code = 22927-2) 124 K/UL 150.0-450.0 L Platelet mean volume [Entiti c volume] in Blood by Automated count (test code = 45255-7) 10.0 FL 7.4-10.4 N Neutrophils.segmented/100 leukocytes in Blood (test code = 61821-1) 53.3 % 40.0-75.0 N Lymphocytes Variant/100 leuk ocytes in Blood (test code = 23365-7) 33.9 % 24.0-44.0 N Lymphocytes+Monocytes/100 leukocytes in Blood (test code = 4662-3) 10.0 % 0.0-13.0 N Eosinophils [#/volume] in Bl ood (test code = 58984-2) 2.2 % 0.0-4.0 N Basophils [#/volume] in Bloo d (test code = 30412-7) 0.4 % 0.0-2.0 N Immature granulocytes/100 leukocytes in Blood (test code = 08553-0) 0.2 % 0.0-1.0 N Nucleated erythrocytes [#/vo lume] in Blood (test code = 33747-8) 0 /100 WBC N Neutrophils [#/volume] in Bl ood (test code = 08225-3) 2.4 K/UL 1.2-7.2 N [facility]PAP TEST, THINPREP, [id number] 16:02:24* Test Item Value Reference Range Interpretation Comme nts SOURCE: (test code = 8001) Cervical/Endoce rvical SLIDES: (test code = 8011) 1 LMP: (test code = 8021) SEE NOTE POST MENOPAUSAL SPECIMEN ADEQUACY: (test code = 21531) (NOTE) Satisfactory for evaluation. Endocervical cells/transformation zone component present. INTERPRETATION: (test code = 39892) NILM/NO EPITH. 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 The Pap test is a screening test with an inherent, but low probability of error. Your patient should be reminded to consult you immediately if she experiences any suspicious signs or symptoms, regardless of her Pap test result. An alternate report format containing images or consolidated prior Pap history is available as applicable. HPV HIGH RISK WITH GENOTYPE, [id number] 15:53:52* Test Item Value Reference Range Interpretation Comme nts HPV HIGH RISK INTERP (test code = 54538) NEGATIVE NEGATIVE HPV 16 (test code = 83436) NEGATIVE HPV 18 (test code = 69552) NEGATIVE HPV, HR, OTHER GENOTYPES (test code = 33100) NEGATIVE Testing methodol ogy is real-time PCR [...] TESTING PERFORMED AT [facility] [address] [place] [address] CORE LOADER: JATIN FELIPE M.D. CLIA NUMBER [id number] [facility] [place]. [id number] HPV HIGH RISK WITH GENOTYPE, [id number] 00:00:00* Test Item Value Reference Range Interpretation Comme nts HPV HIGH RISK INTERP (test c ode = 69289) NEGATIVE HPV 16 (test code = 80114) NEGATIVE HPV 18 (test code = 32707) NEGATIVE HPV, HR, OTHER GENOTYPES (te st code = 67114) NEGATIVE PDFE (test code = PDFReport) PDF Henry ContrerasPAP TEST, THINPREP, [id number] 00:00:00* Test Item Value Reference Range Interpretation Comme nts SOURCE: (test code = 8001) Cervical/Endocervical SLIDES: (test code = 8011) 1 LMP: (test code = 8021) SEE NOTE SPECIMEN ADEQUACY: (test code = 18796) (NOTE) INTERPRETATION: (test code = 25750) NILM/NO EPITH. ABNORMALITY;SEE BELOW TIER LIFT TRUCK OPERATOR: (test code = 8101) Jami Smalls LOCATION: (test code = 23501) (NOTE) CPT: (test code = 8140) (NOTE) Henry CotnrerasHPV HIGH RISK WITH GENOTYPE, [id number] 00:00:00* Test Item Value Reference Range Interpretation Comme nts HPV HIGH RISK INTERP (test c ode = 71062) NEGATIVE HPV 16 (test code = 02709) NEGATIVE HPV 18 (test code = 87986) NEGATIVE HPV, HR, OTHER GENOTYPES (te st code = 20190) NEGATIVE PDFE (test code = PDFReport) PDF Henry Quiles AustinPAP TEST, THINPREP, [id number] 00:00:00* Test Item Value Reference Range Interpretation Comme nts SOURCE: (test code = 8001) Cervical/Endocervical SLIDES: (test code = 8011) 1 LMP: (test code = 8021) SEE NOTE SPECIMEN ADEQUACY: (test code = 18360) (NOTE) INTERPRETATION: (test code = 15477) NILM/NO EPITH. ABNORMALITY;SEE BELOW TIER LIFT TRUCK OPERATOR: (test code = 8101) Jami Smalls LOCATION: (test code = 06324) (NOTE) CPT: (test code = 8140) (NOTE) Henry Quiles AustinHPV HIGH RISK WITH GENOTYPE, [id number] 00:00:00* Test Item Value Reference Range Interpretation Comme nts HPV HIGH RISK INTERP (test c ode = 25786) NEGATIVE HPV 16 (test code = 44273) NEGATIVE HPV 18 (test code = 57360) NEGATIVE HPV, HR, OTHER GENOTYPES (te st code = 36994) NEGATIVE PDFE (test code = PDFReport) PDF Henry Quiles AustinPAP TEST, THINPREP, [id number] 00:00:00* Test Item Value Reference Range Interpretation Comme nts SOURCE: (test code = 8001) Cervical/Endocervical SLIDES: (test code = 8011) 1 LMP: (test code = 8021) SEE NOTE SPECIMEN ADEQUACY: (test code = 30113) (NOTE) INTERPRETATION: (test code = 37874) NILM/NO EPITH. ABNORMALITY;SEE BELOW TIER LIFT TRUCK OPERATOR: (test code = 8101) Jami Smalls LOCATION: (test code = 56387) (NOTE) CPT: (test code = 8140) (NOTE) Henry Quiles AustinHPV HIGH RISK WITH GENOTYPE, [id number] 00:00:00* Test Item Value Reference Range Interpretation Comme nts HPV HIGH RISK INTERP (test c ode = 07692) NEGATIVE HPV 16 (test code = 68481) NEGATIVE HPV 18 (test code = 39451) NEGATIVE HPV, HR, OTHER GENOTYPES (te st code = 97648) NEGATIVE PDFE (test code = PDFReport) PDF Henry Quiles AustinPAP TEST, THINPREP, [id number] 00:00:00* Test Item Value Reference Range Interpretation Comme nts SOURCE: (test code = 8001) Cervical/Endocervical SLIDES: (test code = 8011) 1 LMP: (test code = 8021) SEE NOTE SPECIMEN ADEQUACY: (test code = 43619) (NOTE) INTERPRETATION: (test code = 54737) NILM/NO EPITH. ABNORMALITY;SEE BELOW TIER LIFT TRUCK OPERATOR: (test code = 8101) Jami Smalls LOCATION: (test code = 24789) (NOTE) CPT: (test code = 8140) (NOTE) Henry Quiles AustinPAP TEST, THINPREP, IMAGED [ADDED]2023-10-10 00:00:00* Test Item Value Reference Range Interpretation Comme nts SOURCE: (test code = 8001) Unspecified SLIDES: (test code = 8011) 2 LMP: (test code = 8021) NOT GIVEN SPECIMEN ADEQUACY: (test code = 52796) (NOTE) INTERPRETATION: (test code = 70091) UNSATISFACTORY; SEE BELOW OTHER COMMENTS: (test code = 8081) (NOTE) TIER LIFT TRUCK OPERATOR: (test code = 8101) Jose Bustillos QC TECHNOLOGIST: (test code = 8111) RAUL Wilde(ASCP),[facility] LOCATION: (test code = 43334) (NOTE) CPT: (test code = 8140) (NOTE) Henry Quiles AustinHPV HIGH RISK IF ASC/LSIL, THINPREP [ADDED]2023-10-10 00:00:00* Test Item Value Reference Range Interpretation Comme nts HPV HIGH RISK IF ASC/LSIL, THINPREP (test code = 77532) CRITERIA NOT MET Henry Quiles AustinPAP TEST, THINPREP, IMAGED [ADDED]2023-10-10 00:00:00* Test Item Value Reference Range Interpretation Comme nts SOURCE: (test code = 8001) Unspecified SLIDES: (test code = 8011) 2 LMP: (test code = 8021) NOT GIVEN SPECIMEN ADEQUACY: (test code = 48020) (NOTE) INTERPRETATION: (test code = 39918) UNSATISFACTORY; SEE BELOW OTHER COMMENTS: (test code = 8081) (NOTE) TIER LIFT TRUCK OPERATOR: (test code = 8101) Jose Bustillos QC TECHNOLOGIST: (test code = 8111) Jason WhitmanSCT(ASCP),[facility] LOCATION: (test code = 94968) (NOTE) CPT: (test code = 8140) (NOTE) Henry Quiles AustinHPV HIGH RISK IF ASC/LSIL, THINPREP [ADDED]2023-10-10 00:00:00* Test Item Value Reference Range Interpretation Comme nts HPV HIGH RISK IF ASC/LSIL, THINPREP (test code = 48354) CRITERIA NOT MET Henry Quiles AustinPAP TEST, THINPREP, IMAGED [ADDED]2023-10-10 00:00:00* Test Item Value Reference Range Interpretation Comme nts SOURCE: (test code = 8001) Unspecified SLIDES: (test code = 8011) 2 LMP: (test code = 8021) NOT GIVEN SPECIMEN ADEQUACY: (test code = 48963) (NOTE) INTERPRETATION: (test code = 01205) UNSATISFACTORY; SEE BELOW OTHER COMMENTS: (test code = 8081) (NOTE) TIER LIFT TRUCK OPERATOR: (test code = 8101) Jose Bustillos QC TECHNOLOGIST: (test code = 8111) Jason WhitmanSCT(ASCP),[facility] LOCATION: (test code = 92013) (NOTE) CPT: (test code = 8140) (NOTE) Henry Quiles AustinHPV HIGH RISK IF ASC/LSIL, THINPREP [ADDED]2023-10-10 00:00:00* Test Item Value Reference Range Interpretation Comme nts HPV HIGH RISK IF ASC/LSIL, THINPREP (test code = 26080) CRITERIA NOT MET Henry Quiles AustinPAP TEST, THINPREP, IMAGED [ADDED]2023-10-10 00:00:00* Test Item Value Reference Range Interpretation Comme nts SOURCE: (test code = 8001) Unspecified SLIDES: (test code = 8011) 2 LMP: (test code = 8021) NOT GIVEN SPECIMEN ADEQUACY: (test code = 56241) (NOTE) INTERPRETATION: (test code = 94047) UNSATISFACTORY; SEE BELOW OTHER COMMENTS: (test code = 8081) (NOTE) TIER LIFT TRUCK OPERATOR: (test code = 8101) Jose Bustillos QC TECHNOLOGIST: (test code = 8111) RAUL Wilde(ASCP),[facility] LOCATION: (test code = 67855) (NOTE) CPT: (test code = 8140) (NOTE) Henry Quiles AustinHPV HIGH RISK IF ASC/LSIL, THINPREP [ADDED]2023-10-10 00:00:00* Test Item Value Reference Range Interpretation Comme nts HPV HIGH RISK IF ASC/LSIL, THINPREP (test code = 16083) CRITERIA NOT MET Henry Quiles AustinGONORRHEA, NAAT, THINPREP [ADDED]2023-10-08 00:00:00* Test Item Value Reference Range Interpretation Comme nts GONORRHEA, NAAT, THINPREP (t est code = 56532) NEGATIVE Henry Quiles AustinCHLAMYDIA, NAAT, THINPREP [ADDED]2023-10-08 00:00:00* Test Item Value Reference Range Interpretation Comme nts CHLAMYDIA, NAAT, THINPREP (t est code = 47377) NEGATIVE PDFE (test code = PDFReport) PDF Henry Quiles AustinGONORRHEA, NAAT, THINPREP [ADDED]2023-10-08 00:00:00* Test Item Value Reference Range Interpretation Comme nts GONORRHEA, NAAT, THINPREP (t est code = 16596) NEGATIVE Henry Quiles AustinCHLAMYDIA, NAAT, THINPREP [ADDED]2023-10-08 00:00:00* Test Item Value Reference Range Interpretation Comme nts CHLAMYDIA, NAAT, THINPREP (t est code = 73609) NEGATIVE PDFE (test code = PDFReport) PDF Henry Quiles AustinGONORRHEA, NAAT, THINPREP [ADDED]2023-10-08 00:00:00* Test Item Value Reference Range Interpretation Comme nts GONORRHEA, NAAT, THINPREP (t est code = 26343) NEGATIVE Henry Quiles AustinCHLAMYDIA, NAAT, THINPREP [ADDED]2023-10-08 00:00:00* Test Item Value Reference Range Interpretation Comme nts CHLAMYDIA, NAAT, THINPREP (t est code = 46385) NEGATIVE PDFE (test code = PDFReport) PDF Henry Quiles AustinGONORRHEA, NAAT, THINPREP [ADDED]2023-10-08 00:00:00* Test Item Value Reference Range Interpretation Comme nts GONORRHEA, NAAT, THINPREP (t est code = 36351) NEGATIVE Henry SelfAMYDIA, NAAT, THINPREP [ADDED]2023-10-08 00:00:00* Test Item Value Reference Range Interpretation Comme shaina CHLAMYDIA, NAAT, THINPREP (t est code = 57103) NEGATIVE PDFE (test code = PDFReport) PDF Henry Griffin THIRD [id number] 08:14:44* Test Item Value Reference Range Interpretation Comme nts TSH, THIRD GENERATION (test code = 2821) 5.200 UIU/ML 0.400-4.100 H UNLESS OTHERWISE INDICATED, ALL TESTING PERFORMED AT [facility] [address] [place] [address] CORE LOADER: JATIN FELIPE M.D. CLIA NUMBER [id number] [facility] [place]. [id number] 00:00:00* Test Item Value Reference Range Interpretation Comme nts TSH, THIRD GENERATION (test code = 2821) 5.200 UIU/ML Henry [id number] 00:00:00* Test Item Value Reference Range Interpretation Comme nts TSH, THIRD GENERATION (test code = 2821) 5.200 UIU/ML Henry [id number] 00:00:00* Test Item Value Reference Range Interpretation Comme nts TSH, THIRD GENERATION (test code = 2821) 5.200 UIU/ML Henry [id number] 00:00:00* Test Item Value Reference Range Interpretation Comme nts TSH, THIRD GENERATION (test code = 2821) 5.200 UIU/ML Henry Griffin THIRD [id number] 23:53:27* Test Item Value Reference Range Interpretation Comme nts TSH, THIRD GENERATION (test code = 2821) 11.100 UIU/ML 0.400-4.100 H COMPREHENSIVE METABOLIC [id number] 23:46:03* Test Item Value Reference Range Interpretation [...] 13 U/L 5-40 CBC W/AUTO DIFF WITH [id number] 08:48:44* Test Item Value Reference Range Interpretation [...] 0.00-0.10 ABS NUCLEATED RBCS (test code = 33123) 0.00 K/UL 0.00-0.11 UNLESS OTHER MONTOYA INDICATED, ALL TESTING PERFORMED AT [facility] [address] [place] [address] CORE LOADER: JATIN FELIPE M.D. CLIA NUMBER [id number] [facility] [place]. [id number] 00:00:00* Test Item Value Reference Range Interpretation Comme nts TSH, THIRD GENERATION (test code = 2821) 11.100 UIU/ML Henry ContrerasCBC W/AUTO [id number] 00:00:00* Test Item Value Reference Range Interpretation [...] ABS NUCLEATED RBCS (test cod e = 21477) 0.00 K/UL Henry ContrerasCOMPREHENSIVE METABOLIC [id number] 00:00:00* Test Item Value Reference Range Interpretation Comme nts GLUCOSE (test code = 2217) 97 MG/DL BUN (test code = 2208) 7 MG/DL CREATININE (test code = 2214) 0.61 MG/DL eGFR (2020 CKD-EPI) (test code = 97578) 110 ML/MIN/1.73 CALC BUN/CREAT (test code = [...] (test code = 2219) 13 U/L Henry [id number] 00:00:00* Test Item Value Reference Range Interpretation Comme nts TSH, THIRD GENERATION (test code = 2821) 11.100 UIU/ML Henry ContrerasCBC W/AUTO [id number] 00:00:00* Test Item Value Reference Range Interpretation [...] ABS NUCLEATED RBCS (test cod e = 22874) 0.00 K/UL Henry ContrerasCOMPREHENSIVE METABOLIC [id number] 00:00:00* Test Item Value Reference Range Interpretation Comme nts GLUCOSE (test code = 2217) 97 MG/DL BUN (test code = 2208) 7 MG/DL CREATININE (test code = 2214) 0.61 MG/DL eGFR (2020 CKD-EPI) (test code = 17897) 110 ML/MIN/1.73 CALC BUN/CREAT (test code = [...] (test code = 2219) 13 U/L Henry [id number] 00:00:00* Test Item Value Reference Range Interpretation Comme nts TSH, THIRD GENERATION (test code = 2821) 11.100 UIU/ML Henry ContrerasCBC W/AUTO [id number] 00:00:00* Test Item Value Reference Range Interpretation [...] ABS NUCLEATED RBCS (test cod e = 42271) 0.00 K/UL Henry ContrerasCOMPREHENSIVE METABOLIC [id number] 00:00:00* Test Item Value Reference Range Interpretation Comme nts GLUCOSE (test code = 2217) 97 MG/DL BUN (test code = 2208) 7 MG/DL CREATININE (test code = 2214) 0.61 MG/DL eGFR (2020 CKD-EPI) (test code = 23610) 110 ML/MIN/1.73 CALC BUN/CREAT (test code = [...] (test code = 2219) 13 U/L Henry [id number] 00:00:00* Test Item Value Reference Range Interpretation Comme nts TSH, THIRD GENERATION (test code = 2821) 11.100 UIU/ML Henry ContrerasCBC W/AUTO [id number] 00:00:00* Test Item Value Reference Range Interpretation [...] ABS NUCLEATED RBCS (test cod e = 00866) 0.00 K/UL Henry Quiles TorontoCOMPREHENSIVE METABOLIC [id number] 00:00:00* Test Item Value Reference Range Interpretation Comme nts GLUCOSE (test code = 2217) 97 MG/DL BUN (test code = 2208) 7 MG/DL CREATININE (test code = 2214) 0.61 MG/DL eGFR (2020 CKD-EPI) (test code = 03841) 110 ML/MIN/1.73 CALC BUN/CREAT (test code = [...] (test code = 2219) 13 U/L Henry [id number] 01:13:06* Test Item Value Reference Range Interpretation Comme nts TRANSFERRIN (test code = 4936) 315 MG/DL 200-360 UNLESS OTHERWISE INDICATED, ALL TESTING PERFORMED AT [facility] [address] [place] [address] CORE LOADER: JATIN FELIPE M.D. CLIA NUMBER [id number] [facility]. [id number] LIPID [id number] 01:12:48* Test Item Value Reference Range Interpretation [...] SPECIMENS. FOR MOREINFORMATION, SEE CLIENT ANNOUNCEMENT AT [email or web address] [email or web address] RATIO LDL/HDL (test code = 2238) 1.34 RATIO <3.22 COMPREHENSIVE METABOLIC [id number] 01:12:48* Test Item Value Reference Range Interpretation Comme nts GLUCOSE (test code = 2217) 92 MG/DL 70-99 BUN (test code = 2208) 15 MG/DL 6-20 CREATININE (test code = 2214) 0.65 MG/DL 0.60-1.30 eGFR (2020 CKD-EPI) (test code = 03296) 108 ML/MIN/1.73 >60 CALC BUN/CREAT (test code [...] IRON BINDING CAPACITY AND IRON AND % [id number] 01:12:48* Test Item Value Reference Range Interpretation Comme nts IRON, SERUM (test code = 2221) 51 UG/DL 37-145 UNSATURATED IBC (test code = ) 356 UG/DL 112-347 H CALC TOTAL IBC (test code = 2076) 407 UG/DL 250-450 CALC % IRON SAT (test code = 2078) 13 % 20-50 L [id number] 00:59:24* Test Item Value Reference Range Interpretation Comme nts FERRITIN (test code = 2074) 20 NG/ML 13-200 LIPID [id number] 00:00:00* Test Item Value Reference Range Interpretation Comme nts CHOLESTEROL (test code = 2209) 191 MG/DL TRIGLYCERIDES (test code = 2) 89 MG/DL HDL CHOLESTEROL (test code = 0) 74 MG/DL CALC LDL CHOL (test code = 7) 99 MG/DL RISK RATIO LDL/HDL (test cod e = 2238) 1.34 RATIO Henry F AustinCOMPREHENSIVE METABOLIC [id number] 00:00:00* Test Item Value Reference Range Interpretation [...] ContrerasIRON BINDING CAPACITY AND IRON AND % [id number] 00:00:00* Test Item Value Reference Range Interpretation Comme nts IRON, SERUM (test code = 2221) 51 UG/DL UNSATURATED IBC (test code = ) 356 UG/DL CALC TOTAL IBC (test code = 2076) 407 UG/DL CALC % IRON SAT (test code = 2078) 13 % Henry Quiles [id number] 00:00:00* Test Item Value Reference Range Interpretation Comme nts FERRITIN (test code = 2074) 20 NG/ML Henry Quiles [id number] 00:00:00* Test Item Value Reference Range Interpretation Comme nts TRANSFERRIN (test code = 4936) 315 MG/DL Henry Quiles AustinLIPID [id number] 00:00:00* Test Item Value Reference Range Interpretation Comme nts CHOLESTEROL (test code = 2209) 191 MG/DL TRIGLYCERIDES (test code = 2) 89 MG/DL HDL CHOLESTEROL (test code = 0) 74 MG/DL CALC LDL CHOL (test code = 7) 99 MG/DL RISK RATIO LDL/HDL (test cod e = 2238) 1.34 RATIO Henry ContrerasCOMPREHENSIVE METABOLIC [id number] 00:00:00* Test Item Value Reference Range Interpretation Comme nts GLUCOSE (test code = 2217) 92 MG/DL BUN (test code = 2208) 15 MG/DL CREATININE (test code = 2214) 0.65 MG/DL eGFR (2020 CKD-EPI) (test code = 71477) 108 ML/MIN/1.73 CALC BUN/CREAT (test code = [...] ContrerasIRON BINDING CAPACITY AND IRON AND % [id number] 00:00:00* Test Item Value Reference Range Interpretation Comme nts IRON, SERUM (test code = 2221) 51 UG/DL UNSATURATED IBC (test code = 37469) 356 UG/DL CALC TOTAL IBC (test code = 7) 407 UG/DL CALC % IRON SAT (test code = 2078) 13 % Henry [id number] 00:00:00* Test Item Value Reference Range Interpretation Comme nts FERRITIN (test code = 2074) 20 NG/ML Henry ContrerasWdwpnnHQUCICJOTLY4999-01-00 00:00:00* Test Item Value Reference Range Interpretation Comme nts TRANSFERRIN (test code = 4936) 315 MG/DL Henry ContrerasLIPID [id number] 00:00:00* Test Item Value Reference Range Interpretation Comme nts CHOLESTEROL (test code = 2210) 191 MG/DL TRIGLYCERIDES (test code = 2232) 89 MG/DL HDL CHOLESTEROL (test code = 2220) 74 MG/DL CALC LDL CHOL (test code = 2237) 99 MG/DL RISK RATIO LDL/HDL (test cod e = 2238) 1.34 RATIO Henry ContrerasCOMPREHENSIVE METABOLIC [id number] 00:00:00* Test Item Value Reference Range Interpretation Comme nts GLUCOSE (test code = 2217) 92 MG/DL BUN (test code = 2208) 15 MG/DL CREATININE (test code = 2214) 0.65 MG/DL eGFR (2020 CKD-EPI) (test code = 59389) 108 ML/MIN/1.73 CALC BUN/CREAT (test code = [...] ContrerasIRON BINDING CAPACITY AND IRON AND % [id number] 00:00:00* Test Item Value Reference Range Interpretation Comme nts IRON, SERUM (test code = 2221) 51 UG/DL UNSATURATED IBC (test code = ) 356 UG/DL CALC TOTAL IBC (test code = 2076) 407 UG/DL CALC % IRON SAT (test code = 2078) 13 % Henry [id number] 00:00:00* Test Item Value Reference Range Interpretation Comme nts FERRITIN (test code = 2074) 20 NG/ML Henry Quiles [id number] 00:00:00* Test Item Value Reference Range Interpretation Comme nts TRANSFERRIN (test code = 4936) 315 MG/DL Henry Quiles AustinLIPID [id number] 00:00:00* Test Item Value Reference Range Interpretation Comme nts CHOLESTEROL (test code = 2210) 191 MG/DL TRIGLYCERIDES (test code = 2232) 89 MG/DL HDL CHOLESTEROL (test code = 2220) 74 MG/DL CALC LDL CHOL (test code = 2237) 99 MG/DL RISK RATIO LDL/HDL (test cod e = 2238) 1.34 RATIO Henry ContrerasCOMPREHENSIVE METABOLIC [id number] 00:00:00* Test Item Value Reference Range Interpretation Comme nts GLUCOSE (test code = 2217) 92 MG/DL BUN (test code = 2208) 15 MG/DL CREATININE (test code = 2214) 0.65 MG/DL eGFR (2020 CKD-EPI) (test code = 71969) 108 ML/MIN/1.73 CALC BUN/CREAT (test code = [...] AustinIRON BINDING CAPACITY AND IRON AND % [id number] 00:00:00* Test Item Value Reference Range Interpretation Comme nts IRON, SERUM (test code = 222) 51 UG/DL UNSATURATED IBC (test code = 39238) 356 UG/DL CALC TOTAL IBC (test code = 2076) 407 UG/DL CALC % IRON SAT (test code = 2078) 13 % Henry [id number] 00:00:00* Test Item Value Reference Range Interpretation Comme nts FERRITIN (test code = 2075) 20 NG/ML Henry C[id number] 00:00:00* Test Item Value Reference Range Interpretation Comme nts TRANSFERRIN (test code = 4936) 315 MG/DL Henry ContrerasHEMOGLOBIN [id number] 03:08:40* Test Item Value Reference Range Interpretation Comme nts HEMOGLOBIN A1c (test code = 55787) 5.5 % 4.2-5.6 CBC W/AUTO DIFF WITH [id number] 02:29:36* Test Item Value Reference Range Interpretation [...] = 1065) 0.0 /100 WBC'S See_Comment [Automated AgFlowa ge] The system which generated this result [...] 0.00-0.10 ABS NUCLEATED RBCS (test code = 49298) 0.00 K/UL 0.00-0.11 CBC W/AUTO [id number] 00:00:00* Test Item Value Reference Range Interpretation [...] ABS NUCLEATED RBCS (test cod e = 38986) 0.00 K/UL Henry Quiles AustinHEMOGLOBIN [id number] 00:00:00* Test Item Value Reference Range Interpretation Comme nts HEMOGLOBIN A1c (test code = 98429) 5.5 % Henry F AustinCBC W/AUTO [id number] 00:00:00* Test Item Value Reference Range Interpretation [...] ABS NUCLEATED RBCS (test cod e = 11070) 0.00 K/UL Henry ContrerasHEMOGLOBIN [id number] 00:00:00* Test Item Value Reference Range Interpretation Comme nts HEMOGLOBIN A1c (test code = 11777) 5.5 % Henry Quiles AustinCBC W/AUTO [id number] 00:00:00* Test Item Value Reference Range Interpretation [...] ABS NUCLEATED RBCS (test cod e = 74400) 0.00 K/UL Henry ContrerasHEMOGLOBIN [id number] 00:00:00* Test Item Value Reference Range Interpretation Comme nts HEMOGLOBIN A1c (test code = 40103) 5.5 % Henry ContrerasCBC W/AUTO [id number] 00:00:00* Test Item Value Reference Range Interpretation [...] ABS NUCLEATED RBCS (test cod e = 35370) 0.00 K/UL Henry ContrerasHEMOGLOBIN [id number] 00:00:00* Test Item Value Reference Range Interpretation Comme nts HEMOGLOBIN A1c (test code = 42275) 5.5 % Henry ContrerasDRUGS OF [id number] 05:03:00* Test Item Value Reference Range Interpretation [...] 200 ng/mL Opiates 300 ng/mL URINALYSIS WITH [id number] 04:56:00* Test Item Value Reference Range Interpretation [...] (test code = USPERM) /HPF NONE URINE [id number] 04:53:00* Test Item Value Reference Range Interpretation [...] the FDA and the [employer] (CAP) are more stringent than those required for this test. Therefore, the result should be interpreted with caution and close attention to other clinical and epidemiological data [id number] 16:00:00* Test Item Value Reference Range Interpretation Comme nts SALICYLATE (test code = 94B) <3.0 mg/dL 15.0-30.0 L LIVER [id number] 15:49:00* Test Item Value Reference Range Interpretation [...] code = 30A) 16 IU/L See_Comment [Automated AgFlowa ge] The system which generated this result transmitted reference range: <=33. The reference range was not used to interpret this result as normal/abnormal. ALT (test code = 31A) <7 IU/L 10-49 L [id number] 15:48:00* Test Item Value Reference Range Interpretation Comme nts ACETAMINPH (test code = 94M) <0.2 mg/dL 1.2-2.5 L ALCOHOL BLOOD (ETOH)2022-11-04 15:48:00* Test Item Value Reference Range Interpretation Comme nts ETOH (test code = HALC) ETHANOL The result is to be used only for medical purposes ALCOHOL (test code = 56A) <10 mg/dL See_Comment [Automated AgFlowa ge] The system which generated this result transmitted reference range: <=10. The reference range was not used to interpret this result as normal/abnormal. 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 Old healed fractures of the distal tibia and fibular noted.Soft tissues: Unremarkable.IMPRESSION: No acute findings.Electronically signed by: Nikko Santiago MD 11/04/2022 3:10 PM CDT 4196WT7WMSCIVD BEDSIDE [id number] 11:51:00* Test Item Value Reference Range Interpretation Comme nts GLUCOSE BEDSIDE TESTING (karen t code = GLUBED) 79 MG/DL 70-119 N GLUCOSE BEDSIDE [id number] 06:23:00* Test Item Value Reference Range Interpretation Comme nts GLUCOSE BEDSIDE TESTING (karen t code = GLUBED) 80 MG/DL 70-119 N BASIC METABOLIC [id number] 05:12:00* Test Item Value Reference Range Interpretation [...] 2.0 <2.0 indicates None DetectedPerformed At: [facility] [address] [place], [place] [id number] Michael Reeves MD Ph:[phone] GLUCOSE BEDSIDE [id number] 19:51:00* Test Item Value Reference Range Interpretation Comme nts GLUCOSE BEDSIDE TESTING (karen t code = GLUBED) 129 MG/DL 70-119 H OSMOLALITY [id number] 17:56:00* Test Item Value Reference Range Interpretation Comme nts OSMOLALITY SERUM (test code = OSMO) 269 mOsm/kg 275-300 L THYROID STIMULATING [id number] 17:56:00* Test Item Value Reference Range Interpretation Comme nts THYROID STIMULATING HORMONE (test code = TSH) 4.190 mc IU/ML 0.340-4.820 N GLUCOSE BEDSIDE [id number] 15:49:00* Test Item Value Reference Range Interpretation [...] code = VALP) 37.5 mcG/ML 50.0-100.0 L [id number] 14:26:00* Test Item Value Reference Range Interpretation Comme [facility] AMMONIA (test code = AMM) 29.0 mcMOL/L 11.0-32.0 N GLUCOSE BEDSIDE [id number] 11:51:00* Test Item Value Reference Range Interpretation Comme [facility] GLUCOSE BEDSIDE TESTING (karen t code = GLUBED) 88 MG/DL 70-119 N GLYCOSYLATED HEMOGLOBIN (HA1C)2022-09-18 06:53:00* Test Item Value Reference Range Interpretation Comme [facility] GLYCOSYLATED HEMOGLOBIN (HA1 C) (test code = GLYHGB) 5.2 % IS-A1C 4.5-5.6 N ESTIMATED AVERAGE [id number] 06:53:00* Test Item Value Reference Range Interpretation Comme [facility] ESTIMATED AVERAGE GLUCOSE (t est code = EAG) 103 MG/DLest LIPID PROFILE (CORONARY RISK)2022-09-18 06:53:00* Test Item Value Reference Range Interpretation Comme [facility] TRIGLYCERIDES (test code = TRIG) 83 [...] to interpret this result as normal/abnormal. UR [id number] 21:28:00* Test Item Value Reference Range Interpretation Comme nts UR SODIUM RANDOM (test code = JESUSITA) 93 mmol/L 40-200 N UR POTASSIUM RANDOM (test code = KU) 54.8 mmol/L 25-125 N NO ESTABLISHED NORMAL RANGES FOR RANDOM SPECIMENS. UR CHLORIDE RANDOM (test code = CLU) 164 mmol/L 110-150 H UR OSMOLALITY [id number] 21:28:00* Test Item Value Reference Range Interpretation Comme nts UR OSMOLALITY RANDOM (test c ode = OSMOU) 475 mOsm/kg 100-1400 N CBC W/O [id number] 20:05:00* Test Item Value Reference Range Interpretation [...] = MPV) 9.5 fL 6.8-11.2 N LACTIC [id number] 19:35:00* Test Item Value Reference Range Interpretation Comme nts LACTIC ACID (test code = LACT) 1.0 mmol/L 0.4-2.0 N HCG SERUM [id number] 19:31:00* Test Item Value Reference Range Interpretation Comme nts HCG SERUM QUAL (test code = HCGQL) Negative SCREEN NEG - CT HEAD/BRAIN W/O [id number] 18:59:00 [facility] : 1975 Sex: F Patient Name: BHUMIKA JONES Unit No: [id number] EXAMS: CPT CODE: [id number] CT HEAD/BRAIN W/O CONT 73638 Location: H3 CT head, conducted on 09/17/22 [...] Trnscrpt: 09/17/2022 (1858) NadiyaDAS6 DENIZ Lugo NAME: RADU JONES [address] PHYS: Valentina Mattson MD [place] [id number] : 1975 AGE: 47 SEX: F LOC: JOSHUA PHONE #: [phone] EXAM DATE: 09/17/2022 STATUS: ADM IN FAX #: [phone] RAD #: D/C DT PAGE 1 Signed Report Patient Name: BHUMIKA JONES Unit No: [id number] EXAMS: CPT CODE: [id number] CT HEAD/BRAIN W/O CONT 11015 (Continued) OrigPrint D/T: S: 09/17/2022 (190) DENIZ Lugo NAME: SILAS JONES[address] PHYS: Valentina [place] [address] : 1975 AGE: 47 SEX: F LOC: B.ERMED 20 PHONE #: [phone] EXAM DATE: 09/17/2022 STATUS: ADM IN FAX #: [phone] RAD #: D/C DT PAGE 2 Signed ReportURINALYSIS [id number] 16:28:00* Test Item Value Reference Range Interpretation [...] >0 /UL NONE-SQepi DRUGS OF ABUSE SCREEN [id number] 16:28:00* Test Item Value Reference Range Interpretation [...] interpret this result as normal/abnormal. TROP-I HIGH [id number] 16:26:00* Test Item Value Reference Range Interpretation [...] and URLs may vary bymethod. BASIC METABOLIC [id number] 16:25:00* Test Item Value Reference Range Interpretation [...] interpret this result as normal/abnormal. HEPATIC FUNCTION [id number] 16:25:00* Test Item Value Reference Range Interpretation [...] ode = CK) 92 Unit/L 26-192 N [id number] 16:25:00* Test Item Value Reference Range Interpretation Comme nts LIPASE (test code = LIP) 57 Unit/L 114-286 L - CT HEAD/BRAIN W/O [id number] 00:32:00 [facility] : 1975 Sex: F Patient Name: BHUMIKA JONES Unit No: [id number] EXAMS: CPT CODE: [id number] CT HEAD/BRAIN W/O CONT 94512 EXAM: - CT HEAD/BRAIN W/O CONT LOCATION: [...] Technologist: Terry August CTDI: DLP: Trnscrpt: 09/17/2022(31) t.[email or web address].[email or web address] DENIZ Lugo NAME: ROBERT[address] PHYS: GLORYLUCHO.02 - Asim Jack [place] [address] : 1975 AGE: 47 SEX: F LOC: B.ERS PHONE #: [phone] EXAM DATE: 09/16/2022 STATUS: REG ER FAX #: [phone] RAD #: D/C DT PAGE 1 Signed Report Patient Name: SILAS JONESPCION Unit No: [id number] EXAMS: CPT CODE: [id number] CT HEAD/BRAIN W/O CONT 23665 (Continued) Orig Print D/T: S: 09/17/2022 (34) DENIZ Lugo NAME: JONES[address] PHYS: IGNACIO.Deirdre - Asim [place] [address] : 1975 AGE: 47 SEX: F LOC: B.ERS PHONE #: [phone] EXAM DATE: 09/16/2022 STATUS: REG ER FAX #: [phone] RAD #: D/C DT PAGE 2 Signed ReportTROP-I HIGH [id number] 00:13:00* Test Item Value Reference Range Interpretation [...] and URLs may vary bymethod. COMPREHENSIVE METABOLIC [id number] 00:11:00* Test Item Value Reference Range Interpretation [...] interpret this result as normal/abnormal. CBC W/AUTO [id number] 23:59:00* Test Item Value Reference Range Interpretation [...] K/mm3 0.0-0.05 N - XR CHEST 1 [id number] 23:34:00 [facility] : 1975 Sex: F Maynard: E St: PRE -- Patient Name: BHUMIKA JONES Unit No: [id number] EXAMS: CPT CODE: [id number] XR CHEST 1 V 02999 EXAMINATION: - XR CHEST 1 V CLINICAL [...] By: NadiyaJH12 Orig Print D/T: S: 09/16/2022 (0415) DENIZ Lugo NAME: ROBERT[address] PHYS: IGNACIO.Deirdre - Asim Jack MD, [place] [address] : 1975 AGE: 47 SEX: F LOC: B.ERS PHONE #: [phone] EXAM DATE: 09/16/2022 STATUS: PRE ER FAX #: [phone] RAD NO: DC Dt: PAGE 1 Signed ReportCARBAMAZEPINE (TEGRETOL) 2022-09-15 06:12:00* Test Item Value Reference Range Interpretation Comme nts CARBAMAZEPINE (TEGRETOL) (test code = CARB) 1.5 ug/mL 4.0-12.0 L In conjunction w ith other antiepileptic drugs Therapeutic 4.0 - 8.0 Toxicity 9.0 - 12.0 Carbamazepine alone Therapeutic 8.0 - 12.0 Detection Limit = 2.0 <2.0 indicates None DetectedPerformed At: [facility] [address] [id number] Michael Reeves MD Ph:[phone] VALPROIC ACID (DEPAKENE)2022-09-15 06:12:00* Test Item Value Reference Range Interpretation Comme nts VALPROIC ACID (DEPAKENE) (te st code = VALP) 80.6 mcG/ML 50.0-100.0 N COMPREHENSIVE METABOLIC [id number] 06:00:00* Test Item Value Reference Range Interpretation [...] interpret this result as normal/abnormal. CBC W/AUTO [id number] 05:37:00* Test Item Value Reference Range Interpretation [...] NRBC#) 0.00 K/mm3 0.0-0.05 N GLUCOSE BEDSIDE [id number] 20:03:00* Test Item Value Reference Range Interpretation Comme nts GLUCOSE BEDSIDE TESTING (karen t code = GLUBED) 117 MG/DL 70-119 N DRUGS OF ABUSE SCREEN [id number] 11:42:00* Test Item Value Reference Range Interpretation [...] result as normal/abnormal. - CT HEAD/BRAIN W/O [id number] 11:37:00 [facility] : 1975 Sex: F Patient Name: BHUMIKA JONES Unit No: [id number] EXAMS: CPT CODE: [id number] CT HEAD/BRAIN W/O CONT 94780 EXAMINATION: - CT HEAD/BRAIN W/O CONT COMPARISON: [...] MD; Jim Jaimes MD Dictated Date/Time: 09/14/2022 (1952) Technologist: ASUNCION CASTELLANOCTDI: DLP: Trnscrpt: 09/14/2022 (9789) NadiyaAG38 [facility] MED[facility] CENTERWiliam Lugo NAME: BHUMIKA JONES [facility] PHYS: Vladimir Menchaca MD [address] [place] [address] : 1975 AGE: 47 SEX: F [place], [place] [address] LOC: GregorioCASIMIRO Cintron PHONE #: [phone] EXAM DATE: 09/14/2022 STATUS: ADM IN FAX #: [phone] RAD #: D/C DT PAGE 1 Signed Report Patient Name: SILAS JONESPCION Unit No: [id number] EXAMS: CPT CODE: [id number] CT HEAD/BRAIN W/O CONT 86506 (Continued) Orig PrintD/T: S: 09/14/2022 (1140) DENIZ Lugo NAME: BHUMIKA JONES MEDICAL IMAG[facility] PHYS: Vladimir Menchaca MD [address] [place] [address] : 1975 AGE: 47 SEX: [place] [address] [facility] [id number] LOC: NEHA Cintron PHONE #: [phone] EXAM DATE: 09/14/2022 STATUS: ADM IN FAX #: [phone] RAD #: D/C DT PAGE 2 Signed [...] AVOIDED DUE TO POSSIBLE HEPARINCONTAMINATION HCG SERUM [id number] 06:51:00* Test Item Value Reference Range Interpretation [...] CK) 268 Unit/L 26-192 H CBC W/AUTO [id number] 03:43:00* Test Item Value Reference Range Interpretation [...] = NRBC#) 0.00 K/mm3 0.0-0.05 N URINALYSIS [id number] 03:41:00* Test Item Value Reference Range Interpretation [...] RARE /LPF NONE - XR CHEST 2 [id number] 02:06:00 [facility] BH[facility] : 1975 Sex: F FAX: TylerSuleman gipson RUTH [phone] Maynard: Linda St: REG Patient Name: BHUMIKA JONES Unit No: [id number] EXAMS: CPT CODE: [id number] XR CHEST 2 V 51047 EXAM: - XR CHEST 2 V HISTORY: [...] 09/14/2022 (0209) DENIZ Lugo NAME: BHUMIKA JONES [address] [place] [address] PHYS: Suleman Fredericke, [place] [address] : 1975 AGE: 47SEX: F LOC: MARCOS PHONE #: [phone] EXAM DATE: 09/14/2022 STATUS: REG ER FAX #: [phone] RAD NO: DC Dt: PAGE 1 Signed Report COMPREHENSIVE METABOLIC [id number] 12:49:00* Test Item Value Reference Range Interpretation [...] used to interpret this result as normal/abnormal. [id number] 12:49:00* Test Item Value Reference Range Interpretation Comme nts MAGNESIUM (test code = MAG) 1.7 MG/DL 1.6-2.6 N CBC W/AUTO [id number] 12:36:00* Test Item Value Reference Range Interpretation [...] RARE /LPF NONE DRUGS OF ABUSE SCREEN [id number] 00:33:00* Test Item Value Reference Range Interpretation [...] 300 ng/mL UA RFLX MICR CULT IF [id number] 00:30:00* Test Item Value Reference Range Interpretation [...] culture: Suprapubic PainSpecimen Description: CLEAN CATCHBASIC METABOLIC [id number] 00:18:00* Test Item Value Reference Range Interpretation [...] 8.9 mg/dl 8.0-10.5 N HEPATIC FUNCTION PANEL [id number] 00:18:00* Test Item Value Reference Range Interpretation [...] ALKP) 113 Units/L 50.0-136.0 N HCG SERUM [id number] 00:18:00* Test Item Value Reference Range Interpretation Comme [facility] HCG SERUM QUAL (test code = HCGQL) NEGATIVE NEGATIVE [id number] 00:18:00* Test Item Value Reference Range Interpretation Comme nts ALCOHOL (test code = ALC) 0.00 gm/dL 0.00-0.00 N ETHYL ALCOHOL LA SHARRI - INTERPRETATION: 0.050 GM/DL - NOT INTOXICATED 0.100 GM/DL - INTOXICATED 0.350-0.450 GM/DL - SEVERELY INTOXICATED 0.550 GM/DL- FATAL INTOXICATION Coronavirus 2018 nCoV [id number] 00:09:00* Test Item Value Reference Range Interpretation Comme nts Coronavirus 2019 nCoV Bedside (test code = [id number]) Negative NEGATIVE Negative results should be treated as presumptive and ifinconsistent with clinical signs and symptoms, or necessaryfor patient management, should be tested with an alternativemolecular assay. Negative results do not preclude NGHT-RlX-7lbuldanuf and should not be used as the sole basis forpatient management decisions. Negative results should beconsidered in the context of a patient's recent exposures,history, presence of clinical signs and symptoms consistentwith COVID-19. CBC W/AUTO [id number] 23:58:00* Test Item Value Reference Range Interpretation Comme [facility] WHITE BLOOD CELL (test code = [...] X10 3uL 0.00-0.01 N COMP. METABOLIC PANEL (83813)2022-09-07 02:12:41* Test Item Value Reference Range Interpretation Comme nts NA (test code = 5884035102) 133 mmol/L 135-145 L K (test code = 1019181086) 4.4 mmol/L 3.5-5.0 CL (test code = 3991473382) 102 mmol/L 98-108 CO2 TOTAL (test code = 8912950438) 25 mmol/L 23-31 AGAP (test code = 0011302393) 6 2-16 BUN (test code = 1897230384) 22 mg/dL 7-23 GLUCOSE (test code = 4841633811) 97 mg/dL 70-110 CREATININE (test code = 5050551767) 0.40 mg/dL 0.50-1.04 L TOTAL BILI (test code = 3375610812) 0.3 mg/dL 0.1-1.1 CALCIUM (test code = 0355167166) 8.9 mg/dL 8.6-10.6 T PROTEIN (test code = 2407955591) 7.7 g/dL 6.3-8.2 ALBUMIN (test code = 8659747565) 4.0 g/dL 3.5-5.0 ALK PHOS (test code = 0605430609) 104 U/L 34-122 ALTv (test code = 1742-6) 15 U/L 5-35 AST(SGOT) (test code = 3547816546) 22 U/L 13-40 eGFR (test code = 1393910456) 170.4 mL/min/1.73m2 HANNAH (test code = HANNAH) [...] imaging tests). Lab Interpretation (test code = 34022-3) Abnormal [facility] WITH [id number] 02:01:20* Test Item Value Reference Range Interpretation [...] 32.9 g/dL 31.6-35.1 RDW-SD (test code = 28118-6) 48.1 fL 39.0-49.9 RDW-CV (test code = 788-0) 14.7 % 12.0-15.5 PLT (test code = 777-3) 272 See_Comment [Automated messa ge] The system which generated this result transmitted reference range: 166 - 358 10*3/?L. The reference range was not used to interpret this result as normal/abnormal. MPV (test code = 87280-6) 9.6 fL 9.5-12.9 NRBC/100 WBC (test code = 9503124066) 0.0 See_Comment [Automated Apperian ssage] The system which generated this result transmitted reference range: 0.0 - 10.0 /100 WBCs. The reference range was not used to interpret this result as normal/abnormal. NRBC x10^3 (test code = 8428636737) See_Comment [Automated messa ge] The system which generated this result transmitted reference range: 10*3/?L. The reference range was not used to interpret this result as normal/abnormal. GRAN MAT (NEUT) % (test code = 770-8) 42.2 % IMM GRAN % (test code = 9995924022) 0.20 % LYMPH % (test code = 736-9) 38.2 % MONO % (test code = 5905-5) 12.6 % EOS % (test code = 713-8) 5.8 % BASO % (test code = 706-2) 1.0 % GRAN MAT x10^3(ANC) (test code = 7787575721) 2.60 10*3/uL 1.88-7.09 IMM GRAN x10^3 (test code = 0476276855) 0.00-0.06 LYMPH x10^3 (test code = 731-0) 2.36 10*3/uL 1.32-3.29 MONO x10^3 (test code = 742-7) 0.78 10*3/uL 0.33-0.92 EOS x10^3 (test code = 711-2) 0.36 10*3/uL 0.03-0.39 BASO x10^3 (test code = 704-7) 0.06 10*3/uL 0.01-0.07 Lab Interpretation (test code = 23307-2) Abnormal [facility]-2 (COVID-19) by RT-PCR (HIGH RISK) 2020-08-19 00:00:00* Test Item Value Reference Range Interpretation Comme nts SARS-CoV-2 INTERPRETATION (t est code = 25983) NEGATIVE SOURCE (test code = 22429) NOT SPECIFIED Henry Quiles BgkkjvDLAL-FhW-4 (COVID-19) by RT-PCR (HIGH RISK)2020-08-19 00:00:00* Test Item Value Reference Range Interpretation Comme nts SARS-CoV-2 INTERPRETATION (t est code = 27620) NEGATIVE SOURCE (test code = 86475) NOT SPECIFIED Henry Quiles OsfppiPXKA-JkM-2 (COVID-19) by RT-PCR (HIGH RISK)2020-08-19 00:00:00* Test Item Value Reference Range Interpretation Comme nts SARS-CoV-2 INTERPRETATION (t est code = 83699) NEGATIVE SOURCE (test code = 48592) NOT SPECIFIED Henry Quiles HnikqwWNSQ-NeN-6 (COVID-19) by RT-PCR (HIGH RISK)2020-08-19 00:00:00* Test Item Value Reference Range Interpretation Comme nts SARS-CoV-2 INTERPRETATION (t est code = 82199) NEGATIVE SOURCE (test code = 33125) NOT SPECIFIED Henry Quiles AustinHPV HIGH RISK WITH GENOTYPE, [id number] 00:00:00* Test Item Value Reference Range Interpretation Comme nts HPV HIGH RISK INTERP (test c ode = 35383) NEGATIVE HPV 16 (test code = 72598) NEGATIVE HPV 18 (test code = 87070) NEGATIVE HPV, HR, OTHER GENOTYPES (te st code = 61890) NEGATIVE Henry Quiles AustinPAP TEST, THINPREP, [id number] 00:00:00* Test Item Value Reference Range Interpretation Comme nts SOURCE: (test code = 8001) Cervical/Endocervical SLIDES: (test code = 8011) 1 LMP: (test code = 8021) 06/2017 SPECIMEN ADEQUACY: (test code = 45686) (NOTE) INTERPRETATION: (test code = 87837) NILM/NO EPITH. ABNORMALITY;SEE BELOW TIER LIFT TRUCK OPERATOR: (test code = 8101) KANA Hamlin(ASCP) IAC LOCATION: (test code = 63981) (NOTE) CPT: (test code = 8140) (NOTE) Henry Quiles AustinHPV HIGH RISK WITH GENOTYPE, [id number] 00:00:00* Test Item Value Reference Range Interpretation Comme nts HPV HIGH RISK INTERP (test c ode = 40702) NEGATIVE HPV 16 (test code = 77512) NEGATIVE HPV 18 (test code = 37285) NEGATIVE HPV, HR, OTHER GENOTYPES (te st code = 88037) NEGATIVE Henry Quiles AustinPAP TEST, THINPREP, [id number] 00:00:00* Test Item Value Reference Range Interpretation Comme nts SOURCE: (test code = 8001) Cervical/Endocervical SLIDES: (test code = 8011) 1 LMP: (test code = 8021) 06/2017 SPECIMEN ADEQUACY: (test code = 35857) (NOTE) INTERPRETATION: (test code = 40806) NILM/NO EPITH. ABNORMALITY;SEE BELOW TIER LIFT TRUCK OPERATOR: (test code = 8101) Ole[place], CT(ASCP) IAC LOCATION: (test code = 71618) (NOTE) CPT: (test code = 8140) (NOTE) Henry F AustinHPV HIGH RISK WITH GENOTYPE, [id number] 00:00:00* Test Item Value Reference Range Interpretation Comme nts HPV HIGH RISK INTERP (test c ode = 12751) NEGATIVE HPV 16 (test code = 10758) NEGATIVE HPV 18 (test code = 00618) NEGATIVE HPV, HR, OTHER GENOTYPES (te st code = 96521) NEGATIVE Henry Quiles AustinPAP TEST, THINPREP, [id number] 00:00:00* Test Item Value Reference Range Interpretation Comme nts SOURCE: (test code = 8001) Cervical/Endocervical SLIDES: (test code = 8011) 1 LMP: (test code = 8021) 06/2017 SPECIMEN ADEQUACY: (test code = 27335) (NOTE) INTERPRETATION: (test code = 26119) NILM/NO EPITH. ABNORMALITY;SEE BELOW TIER LIFT TRUCK OPERATOR: (test code = 8101) [place], CT(ASCP) IAC LOCATION: (test code = 28956) (NOTE) CPT: (test code = 8140) (NOTE) Henry F AustinHPV HIGH RISK WITH GENOTYPE, [id number] 00:00:00* Test Item Value Reference Range Interpretation Comme nts HPV HIGH RISK INTERP (test c ode = 40238) NEGATIVE HPV 16 (test code = 05149) NEGATIVE HPV 18 (test code = 84715) NEGATIVE HPV, HR, OTHER GENOTYPES (te st code = 84551) NEGATIVE Henry F AustinPAP TEST, THINPREP, [id number] 00:00:00* Test Item Value Reference Range Interpretation Comme nts SOURCE: (test code = 8001) Cervical/Endocervical SLIDES: (test code = 8011) 1 LMP: (test code = 8021) 06/2017 SPECIMEN ADEQUACY: (test code = 95245) (NOTE) INTERPRETATION: (test code = 41429) NILM/NO EPITH. ABNORMALITY;SEE BELOW TIER LIFT TRUCK OPERATOR: (test code = 8101) KANA Hamlin(ASCP) IAC LOCATION: (test code = 49116) (NOTE) CPT: (test code = 8140) (NOTE) Henry Quiles AustinCT HEAD WO [id number] 22:34:12Impression: 1. ?No acute intracranial process. 2. [...] he patient. Please correlate with history and physicalexamination.[facility] CERVICAL SPINE 2 [id number] 22:29:40No acute osseous abnormality. Preliminary Report Dictated [...] reviewed this study and agree with theabove report.[facility] WITH [id number] 21:46:00* Test Item Value Reference Range Interpretation [...] 32.2 g/dL 31.6-35.1 RDW-SD (test code = 37175-1) 45.1 fL 39-49.9 RDW-CV (test code = 788-0) 14.6 % 12-15.5 PLT (test code = 777-3) See_Comment L [Automated messa ge] The system which generated this result transmitted reference range: 166 - 358 10*3/?L. The reference range was not used to interpret this result as normal/abnormal. MPV (test code = 74208-9) 9.0 fL 9.5-12.9 L NRBC/100 WBC (test code = 9889108537) See_Comment [Automated me ssage] The system which generated this result transmitted reference range: 0.0 - 10.0 /100 WBCs. The reference range was not used to interpret this result as normal/abnormal. NRBC x10^3 (test code = 1927540483) <0.01 See_Comment [Automated messa ge] The system which generated this result transmitted reference range: 10*3/?L. The reference range was not used to interpret this result as normal/abnormal. GRAN MAT (NEUT) % (test code = 770-8) 51.3 % IMM GRAN % (test code = 4515716392) 0.40 % LYMPH % (test code = 736-9) 24.4 % MONO % (test code = 5905-5) 23.1 % EOS % (test code = 713-8) 0.4 % BASO % (test code = 706-2) 0.4 % GRAN MAT x10^3(ANC) (test code = 1414379424) 2.48 10*3/uL 1.88-7.09 IMM GRAN x10^3 (test code = 5877877243) <0.03 0-0.06 LYMPH x10^3 (test code = 731-0) 1.18 10*3/uL 1.32-3.29 L MONO x10^3 (test code = 742-7) 1.12 10*3/uL 0.33-0.92 H EOS x10^3 (test code = 711-2) <0.03 0.03-0.39 L BASO x10^3 (test code = 704-7) <0.03 0.01-0.07 Lab Interpretation (test code = 18101-7) Abnormal [facility] 2 [id number] 03:28:03No acute osseous abnormality. Preliminary Report Dictated [...] this study and agree withthe above report. [facility] Resources[facility] Acid Nslxo8339-03-88 08:03:22* Test Item Value Reference Range Interpretation Comme nts Valproic Acid Level (test co de = Valproic Acid Level) 57.6 ug/mL(g) 50.0-100.0 Hemoglobin [id number] 09:36:00* Test Item Value Reference Range Interpretation Comme nts Hemoglobin A1c (test code = Hemoglobin A1c) 5.0 % 4.8-5.9 Non Diabetic 4.8-5.9%Diabetic <7.0% CT Shoulder w/o Contrast [id number] 16:49:13Patient: SILAS JONESPCION Date/Time01/09/2019 16:14 CDTReason for ExamInjuryReportCT Shoulder w/o [...] Adam FSigned (Electronic Signature): 01/09/2019 4:49 pmRPR Yltwurqkwld1311-84-62 21:33:20* Test Item Value Reference Range Interpretation [...] 04-23-2020 N XR Shoulder Complete 2+ Views [id number] 15:41:25Patient: BHUMIKA JONES Date/Time01/07/2019 15:25 CDTReason for [...] rotator cuff tendinopathy. Final Dictated by: MD Diamante, Michelle CDictated DT/TM: 01/07/2019 3:39 pmSigned by: MD Paige Phebe CSigned (Electronic Signature): 01/07/2019 3:41 pmThyroid Stimulating Ejnnuon7105-50-26 03:07:04* Test Item Value Reference Range Interpretation Comme nts TSH (test code = TSH) 9.650 mIU/mL 0.270-4.200 H Lipid [id number] 03:07:03* Test Item Value Reference Range Interpretation Comme nts Cholesterol Total (test code = Cholesterol Total) 199 mg/dL 0-200 RISK OF HEART DISEASEPublished by [place] Heart Association Analyte Optimal Borderline Increased RiskCHOL [...] is LDL/HDL Ratio=LDL Calc/HDL Chol HCG Qualitative Ezrnk8712-52-61 02:33:13* Test Item Value Reference Range Interpretation Comme nts HCG, Serum Qual (test code = HCG, Serum Qual) Negative Lot # (test code = Lot #) [id number] N Expiration Dt (test code = Expiration Dt) 2020-04-23 N Neg Control (test code = Neg Control) Negative Pos Control (test code = Pos Control) Positive Internal QC (test code = Int ernal QC) Acceptable Drugs of Abuse Urine [id number] 18:58:11* Test Item Value Reference Range Interpretation [...] = Cannabinoid Screen Ur) Negative Negative Alcohol Apztl3405-55-54 18:47:34* Test Item Value Reference Range Interpretation Comme nts Ethanol Level (test code = Ethanol Level) <0.00 g/dL 0.00-0.01 Intoxicated 0.08 0 g/dL or more Ethanol Inst (test code = Ethanol Inst) <0 N Comprehensive Metabolic [id number] 18:47:33* Test Item Value Reference Range Interpretation [...] A/G Ratio) 1.0 ratio N Comprehensive Metabolic Sfyeo1768-58-06 18:47:33* Test Item Value Reference Range Interpretation [...] is not provided, and the patient is -[place], multiply by 1.212. If sex is not [...] the National Kidney Foundation, http://nkdep.nih.gov Comprehensive Metabolic Ioeir5019-09-63 18:47:33* Test Item Value Reference Range Interpretation [...] is not provided, and the patient is -[place], multiply by 1.212. If sex is not [...] is not provided, and the patient is -[place], multiply by 1.212. If sex is not [...] Kidney Foundation, http://nkdep.nih.gov Complete Blood Count with Dththyvagmwz2214-78-49 18:15:23* Test Item Value Reference Range Interpretation [...] code = IPF) 0 % N Automated Nzwzawrpjmck9897-96-44 18:15:23* Test Item Value Reference Range Interpretation Comme nts Neutro Auto (test code = Sunny tro Auto) 42.1 % 36.0-70.0 Lymph Auto (test code = Lymph Auto) 40.0 % 12.0-44.0 Providence Auto (test code = Providence Auto) 12.2 % 0.0-11.0 H Eos, Auto (test code = Eos, Auto) 4.9 % 0.0-7.0 Basophil Auto (test code = B asophil Auto) 0.6 % 0.0-2.0 Neutro Absolute (test code = Neutro Absolute) 2.2 x10 1.6-7.4 Lymph Absolute (test code = Lymph Absolute) 2.06 x10 .50-4.60 [place] Absolute (test code = M richa Absolute) .63 x10 .00-1.20 Eos Absolute (test code = Eo s Absolute) 0.25 x10 0.00-0.74 Baso Absolute (test code = B aso Absolute) 0.03 x10 0.00-0.21 IG [id number] 18:15:23* Test Item Value Reference Range Interpretation Comme nts IG (test code = IG) 0.2 % 0.0-5.0 IG Abs (test code = IG Abs) 0 x10 N VALPROIC [id number] 00:00:00* Test Item Value Reference Range Interpretation Comme nts VALPROIC ACID (test code = 3025) 69.8 UG/ML Henry Quiles AustinVALPROIC [id number] 00:00:00* Test Item Value Reference Range Interpretation Comme nts VALPROIC ACID (test code = 3025) 69.8 UG/ML Henry Quiles AustinVALPROIC [id number] 00:00:00* Test Item Value Reference Range Interpretation Comme nts VALPROIC ACID (test code = 3025) 69.8 UG/ML Henry Quiles AustinVALPROIC [id number] 00:00:00* Test Item Value Reference Range Interpretation Comme nts VALPROIC ACID (test code = 3025) 69.8 UG/ML Henry Quiles AustinURINE CULTURE, NO [id number] 00:00:00* Test Item Value Reference Range Interpretation Comme nts URINE CULTURE, NO SENS (test code = 56604) SPECIMEN NUMBER: [id number] Henry ContrerasURINE CULTURE, NO [id number] 00:00:00* Test Item Value Reference Range Interpretation Comme nts URINE CULTURE, NO SENS (test code = 17949) SPECIMEN NUMBER: [id number] Henry Quiles AustinURINE CULTURE, NO [id number] 00:00:00* Test Item Value Reference Range Interpretation Comme nts URINE CULTURE, NO SENS (test code = 36231) SPECIMEN NUMBER: [id number] Henry Quiles AustinURINE CULTURE, NO [id number] 00:00:00* Test Item Value Reference Range Interpretation Comme nts URINE CULTURE, NO SENS (test code = 74771) SPECIMEN NUMBER: [id number] Henry Quiles AustinIRON BINDING CAPACITY AND IRON AND % [id number] 00:00:00* Test Item Value Reference Range Interpretation Comme nts IRON, SERUM (test code = 2222) 42 UG/DL UNSATURATED IBC (test code = 48722) 279 UG/DL CALC TOTAL IBC (test code = 2077) 321 UG/DL CALC % IRON SAT (test code = 2079) 13 % Henry ContrerasWhkwnlLRGTFVHJ5665-98-70 00:00:00* Test Item Value Reference Range Interpretation Comme nts FERRITIN (test code = 2075) 15 NG/ML Henry Quiles [id number] 00:00:00* Test Item Value Reference Range Interpretation Comme nts TRANSFERRIN (test code = 4936) 269 MG/DL Henry F AustinFOLIC [id number] 00:00:00* Test Item Value Reference Range Interpretation Comme nts FOLIC ACID (test code = 2695) 5.4 UG/L Henry F AustinIRON BINDING CAPACITY AND IRON AND % [id number] 00:00:00* Test Item Value Reference Range Interpretation Comme nts IRON, SERUM (test code = 2222) 42 UG/DL UNSATURATED IBC (test code = 60628) 279 UG/DL CALC TOTAL IBC (test code = 7) 321 UG/DL CALC % IRON SAT (test code = 2079) 13 % Henry F [id number] 00:00:00* Test Item Value Reference Range Interpretation Comme nts FERRITIN (test code = 2075) 15 NG/ML Henry F IrswnjWFWXDIGCCHO7843-06-00 00:00:00* Test Item Value Reference Range Interpretation Comme nts TRANSFERRIN (test code = 4936) 269 MG/DL Henry F AustinFOLIC [id number] 00:00:00* Test Item Value Reference Range Interpretation Comme nts FOLIC ACID (test code = 2695) 5.4 UG/L Ehnry F AustinIRON BINDING CAPACITY AND IRON AND % [id number] 00:00:00* Test Item Value Reference Range Interpretation Comme nts IRON, SERUM (test code = 2222) 42 UG/DL UNSATURATED IBC (test code = 24809) 279 UG/DL CALC TOTAL IBC (test code = 7) 321 UG/DL CALC % IRON SAT (test code = 2079) 13 % Henry F [id number] 00:00:00* Test Item Value Reference Range Interpretation Comme nts FERRITIN (test code = 2075) 15 NG/ML Henry F [id number] 00:00:00* Test Item Value Reference Range Interpretation Comme nts TRANSFERRIN (test code = 4936) 269 MG/DL Henry F AustinFOLIC [id number] 00:00:00* Test Item Value Reference Range Interpretation Comme nts FOLIC ACID (test code = 2695) 5.4 UG/L Henry F AustinIRON BINDING CAPACITY AND IRON AND % [id number] 00:00:00* Test Item Value Reference Range Interpretation Comme nts IRON, SERUM (test code = 2222) 42 UG/DL UNSATURATED IBC (test code = 12927) 279 UG/DL CALC TOTAL IBC (test code = 2077) 321 UG/DL CALC % IRON SAT (test code = 2079) 13 % Henry ContrerasJmkwjgRIJFFYYG6549-08-11 00:00:00* Test Item Value Reference Range Interpretation Comme nts FERRITIN (test code = 2075) 15 NG/ML Henry Quiles [id number] 00:00:00* Test Item Value Reference Range Interpretation Comme nts TRANSFERRIN (test code = 4936) 269 MG/DL Henry Quiles AustinFOLIC [id number] 00:00:00* Test Item Value Reference Range Interpretation Comme nts FOLIC ACID (test code = 2695) 5.4 UG/L Henry ContrerasCULTURE, URINE [ADDED]2018-06-12 00:00:00* Test Item Value Reference Range Interpretation Comme nts CULTURE, URINE (test code = 30302) SPECIMEN NUMBER: [id number] Henry Quiles AustinCULTURE, URINE [ADDED]2018-06-12 00:00:00* Test Item Value Reference Range Interpretation Comme nts CULTURE, URINE (test code = 31746) SPECIMEN NUMBER: [id number] Henry Quiles AustinCULTURE, URINE [ADDED]2018-06-12 00:00:00* Test Item Value Reference Range Interpretation Comme nts CULTURE, URINE (test code = 64187) SPECIMEN NUMBER: [id number] Henry Quiles AustinCULTURE, URINE [ADDED]2018-06-12 00:00:00* Test Item Value Reference Range Interpretation Comme nts CULTURE, URINE (test code = 51720) SPECIMEN NUMBER: [id number] Henry Quiles AustinCBC W/AUTO [id number] 00:00:00* Test Item Value Reference Range Interpretation [...] 1015) 184 K/UL Henry Quiles BenCOMPREHENSIVE METABOLIC [id number] 00:00:00* Test Item Value Reference Range Interpretation Comme nts GLUCOSE (test code = 2217) 86 MG/DL BUN (test code = 2208) 16 MG/DL CREATININE (test code = 2214) 0.45 MG/DL eGFR AMER. (test cod e = 23829) 141 ML/MIN/1.73 eGFR NON- AMER. (test code = 64487) 122 ML/MIN/1.73 CALC BUN/CREAT (test code = [...] = 2219) 17 U/L Henry Quiles BenVALPROIC [id number] 00:00:00* Test Item Value Reference Range Interpretation Comme nts VALPROIC ACID (test code = 3025) 100.9 UG/ML Henry Quiles BenCBC W/AUTO [id number] 00:00:00* Test Item Value Reference Range Interpretation [...] = 1015) 184 K/UL Henry ContrerasCOMPREHENSIVE METABOLIC [id number] 00:00:00* Test Item Value Reference Range Interpretation Comme nts GLUCOSE (test code = 2217) 86 MG/DL BUN (test code = 2208) 16 MG/DL CREATININE (test code = 2214) 0.45 MG/DL eGFR AMER. (test cod e = 61890) 141 ML/MIN/1.73 eGFR NON- AMER. (test code = 21951) 122 ML/MIN/1.73 CALC BUN/CREAT (test code = [...] code = 2219) 17 U/L Henry ContrerasVALPROIC [id number] 00:00:00* Test Item Value Reference Range Interpretation Comme nts VALPROIC ACID (test code = 3025) 100.9 UG/ML Henry ContrerasCBC W/AUTO [id number] 00:00:00* Test Item Value Reference Range Interpretation [...] = 1015) 184 K/UL Henry ContrerasCOMPREHENSIVE METABOLIC [id number] 00:00:00* Test Item Value Reference Range Interpretation Comme nts GLUCOSE (test code = 2217) 86 MG/DL BUN (test code = 2208) 16 MG/DL CREATININE (test code = 2214) 0.45 MG/DL eGFR AMER. (test cod e = 22578) 141 ML/MIN/1.73 eGFR NON- AMER. (test code = 30982) 122 ML/MIN/1.73 CALC BUN/CREAT (test code = [...] code = 2219) 17 U/L Henry ContrerasVALPROIC [id number] 00:00:00* Test Item Value Reference Range Interpretation Comme nts VALPROIC ACID (test code = 3025) 100.9 UG/ML Henry ContrerasCBC W/AUTO [id number] 00:00:00* Test Item Value Reference Range Interpretation [...] = 1015) 184 K/UL Henry ContrerasCOMPREHENSIVE METABOLIC [id number] 00:00:00* Test Item Value Reference Range Interpretation Comme nts GLUCOSE (test code = 2217) 86 MG/DL BUN (test code = 2208) 16 MG/DL CREATININE (test code = 2214) 0.45 MG/DL eGFR AMER. (test cod e = 75881) 141 ML/MIN/1.73 eGFR NON- AMER. (test code = 39084) 122 ML/MIN/1.73 CALC BUN/CREAT (test code = [...] code = 2219) 17 U/L Henry ContrerasVALPROIC [id number] 00:00:00* Test Item Value Reference Range Interpretation Comme nts VALPROIC ACID (test code = 3025) 100.9 UG/ML Henry ContrerasPAP TEST, THINPREP, [id number] 00:00:00* Test Item Value Reference Range Interpretation Comme nts SOURCE: (test code = 8001) Cervical/Endocervical SLIDES: (test code = 8011) 1 LMP: (test code = 8021) 03/2017 SPECIMEN ADEQUACY: (test code = 39205) (NOTE) INTERPRETATION: (test code = 35942) NO EPITHELIAL ABNORMALITY SEE BELOW TIER LIFT TRUCK OPERATOR: (test code = 8101) KANA Merida(ASCP)IAC LOCATION: (test code = 98338) (NOTE) CPT: (test code = 8140) (NOTE) Henry ContrerasHPV HIGH RISK WITH GENOTYPE, [id number] 00:00:00* Test Item Value Reference Range Interpretation Comme [facility] HPV HIGH RISK INTERP (test c ode = 18187) NEGATIVE HPV 16 (test code = 25623) NEGATIVE HPV 18 (test code = 14672) NEGATIVE HPV, HR, OTHER GENOTYPES (te st code = 75272) NEGATIVE Henry ContrerasPAP TEST, THINPREP, [id number] 00:00:00* Test Item Value Reference Range Interpretation Comme nts SOURCE: (test code = 8001) Cervical/Endocervical SLIDES: (test code = 8011) 1 LMP: (test code = 8021) 03/2017 SPECIMEN ADEQUACY: (test code = 07649) (NOTE) INTERPRETATION: (test code = 75981) NO EPITHELIAL ABNORMALITY SEE BELOW TIER LIFT TRUCK OPERATOR: (test code = 8101) KANA Merida(ASCP)IAC LOCATION: (test code = 27179) (NOTE) CPT: (test code = 8140) (NOTE) Henry Quiles AustinHPV HIGH RISK WITH GENOTYPE, [id number] 00:00:00* Test Item Value Reference Range Interpretation Comme nts HPV HIGH RISK INTERP (test c ode = 72018) NEGATIVE HPV 16 (test code = 48672) NEGATIVE HPV 18 (test code = 08336) NEGATIVE HPV, HR, OTHER GENOTYPES (te st code = 06025) NEGATIVE Henry ContrerasPAP TEST, THINPREP, [id number] 00:00:00* Test Item Value Reference Range Interpretation Comme nts SOURCE: (test code = 8001) Cervical/Endocervical SLIDES: (test code = 8011) 1 LMP: (test code = 8021) 03/2017 SPECIMEN ADEQUACY: (test code = 90172) (NOTE) INTERPRETATION: (test code = 43090) NO EPITHELIAL ABNORMALITY SEE BELOW TIER LIFT TRUCK OPERATOR: (test code = 8101) KANA Merida(ASCP)IAC LOCATION: (test code = 80454) (NOTE) CPT: (test code = 8140) (NOTE) Henry Quiles AustinHPV HIGH RISK WITH GENOTYPE, [id number] 00:00:00* Test Item Value Reference Range Interpretation Comme nts HPV HIGH RISK INTERP (test c ode = 99182) NEGATIVE HPV 16 (test code = 12510) NEGATIVE HPV 18 (test code = 74580) NEGATIVE HPV, HR, OTHER GENOTYPES (te st code = 42820) NEGATIVE Henry ContrerasPAP TEST, THINPREP, [id number] 00:00:00* Test Item Value Reference Range Interpretation Comme nts SOURCE: (test code = 8001) Cervical/Endocervical SLIDES: (test code = 8011) 1 LMP: (test code = 8021) 03/2017 SPECIMEN ADEQUACY: (test code = 40985) (NOTE) INTERPRETATION: (test code = 49522) NO EPITHELIAL ABNORMALITY SEE BELOW TIER LIFT TRUCK OPERATOR: (test code = 8101) KANA Merida(ASCP)IAC LOCATION: (test code = 34624) (NOTE) CPT: (test code = 8140) (NOTE) Henry Quiles AustinHPV HIGH RISK WITH GENOTYPE, [id number] 00:00:00* Test Item Value Reference Range Interpretation Comme nts HPV HIGH RISK INTERP (test c ode = 84628) NEGATIVE HPV 16 (test code = 25856) NEGATIVE HPV 18 (test code = 64445) NEGATIVE HPV, HR, OTHER GENOTYPES (te st code = 31806) NEGATIVE Henry Quiles AustinHIV AB/AG COMBO RFLX [id number] 00:00:00* Test Item Value Reference Range Interpretation Comme nts HIV 1/2 4TH GEN, RFLX CONF ( test code = 3514) NON-REACTIVE Henry F AustinGC AND CHLAMYDIA AMPLIFIED, [id number] 00:00:00* Test Item Value Reference Range Interpretation Comme nts GONORRHEA, TMA (test code = 50942) NEGATIVE CHLAMYDIA, TMA (test code = 78848) NEGATIVE Henry F AustinGC AND CHLAMYDIA AMPLIFIED, [id number] 00:00:00* Test Item Value Reference Range Interpretation Comme nts GONORRHEA, TMA (test code = 29434) NEGATIVE CHLAMYDIA, TMA (test code = 88250) NEGATIVE Henry F AustinHIV AB/AG COMBO RFLX [id number] 00:00:00* Test Item Value Reference Range Interpretation Comme nts HIV 1/2 4TH GEN, RFLX CONF ( test code = 3514) NON-REACTIVE Henry F AustinHIV AB/AG COMBO RFLX [id number] 00:00:00* Test Item Value Reference Range Interpretation Comme nts HIV 1/2 4TH GEN, RFLX CONF ( test code = 3514) NON-REACTIVE Henry F AustinGC AND CHLAMYDIA AMPLIFIED, [id number] 00:00:00* Test Item Value Reference Range Interpretation Comme nts GONORRHEA, TMA (test code = 61131) NEGATIVE CHLAMYDIA, TMA (test code = 29800) NEGATIVE Henry F AustinGC AND CHLAMYDIA AMPLIFIED, [id number] 00:00:00* Test Item Value Reference Range Interpretation Comme nts GONORRHEA, TMA (test code = 19932) NEGATIVE CHLAMYDIA, TMA (test code = 72325) NEGATIVE Henry F AustinHIV AB/AG COMBO RFLX [id number] 00:00:00* Test Item Value Reference Range Interpretation Comme nts HIV 1/2 4TH GEN, RFLX CONF ( test code = 3514) NON-REACTIVE Henry ContrerasLIPID [id number] 00:00:00* Test Item Value Reference Range Interpretation Comme nts CHOLESTEROL (test code = 2210) 186 MG/DL TRIGLYCERIDES (test code = 2232) 131 MG/DL HDL CHOLESTEROL (test code = 2220) 67 MG/DL CALC LDL CHOL (test code = 2237) 93 MG/DL RISK RATIO LDL/HDL (test cod e = 2238) 1.39 RATIO Henry ContrerasCBC W/AUTO [id number] 00:00:00* Test Item Value Reference Range Interpretation [...] code = 1015) 152 K/UL Henry ContrerasHEMOGLOBIN [id number] 00:00:00* Test Item Value Reference Range Interpretation Comme shaina HEMOGLOBIN A1c (test code = 19614) 5.2 % Henry [id number] 00:00:00* Test Item Value Reference Range Interpretation Comme nts TSH (test code = 2821) 2.020 UIU/ML Henry ContrerasCOMPREHENSIVE METABOLIC [id number] 00:00:00* Test Item Value Reference Range Interpretation Comme nts GLUCOSE (test code = 2217) 90 MG/DL BUN (test code = 2208) 21 MG/DL CREATININE (test code = 2214) 0.42 MG/DL eGFR AMER. (test cod e = 76114) 145 ML/MIN/1.73 eGFR NON- AMER. (test code = 19628) 126 ML/MIN/1.73 CALC BUN/CREAT (test code = [...] code = 2219) <5 U/L Henry ContrerasLIPID [id number] 00:00:00* Test Item Value Reference Range Interpretation Comme nts CHOLESTEROL (test code = 2210) 186 MG/DL TRIGLYCERIDES (test code = 2232) 131 MG/DL HDL CHOLESTEROL (test code = 2220) 67 MG/DL CALC LDL CHOL (test code = 2237) 93 MG/DL RISK RATIO LDL/HDL (test cod e = 2238) 1.39 RATIO [facility]O [id number] 00:00:00* Test Item Value Reference Range Interpretation [...] code = 1015) 152 K/UL Henry ContrerasHEMOGLOBIN [id number] 00:00:00* Test Item Value Reference Range Interpretation Comme shaina HEMOGLOBIN A1c (test code = 90525) 5.2 % Henry [id number] 00:00:00* Test Item Value Reference Range Interpretation Comme shaina TSH (test code = 2821) 2.020 UIU/ML Henry ContrerasCOMPREHENSIVE METABOLIC [id number] 00:00:00* Test Item Value Reference Range Interpretation Comme nts GLUCOSE (test code = 2217) 90 MG/DL BUN (test code = 2208) 21 MG/DL CREATININE (test code = 2214) 0.42 MG/DL eGFR AMER. (test cod e = 08294) 145 ML/MIN/1.73 eGFR NON- AMER. (test code = 28222) 126 ML/MIN/1.73 CALC BUN/CREAT (test code = [...] code = 2219) <5 U/L Henry ContrerasLIPID [id number] 00:00:00* Test Item Value Reference Range Interpretation Comme nts CHOLESTEROL (test code = 2210) 186 MG/DL TRIGLYCERIDES (test code = 2232) 131 MG/DL HDL CHOLESTEROL (test code = 2220) 67 MG/DL CALC LDL CHOL (test code = 2237) 93 MG/DL RISK RATIO LDL/HDL (test cod e = 2238) 1.39 RATIO Henry ContrerasCBC W/AUTO [id number] 00:00:00* Test Item Value Reference Range Interpretation [...] code = 1015) 152 K/UL Henry ContrerasHEMOGLOBIN [id number] 00:00:00* Test Item Value Reference Range Interpretation Comme shaina HEMOGLOBIN A1c (test code = 48745) 5.2 % Henry [id number] 00:00:00* Test Item Value Reference Range Interpretation Comme nts TSH (test code = 2821) 2.020 UIU/ML Henry ContrerasCOMPREHENSIVE METABOLIC [id number] 00:00:00* Test Item Value Reference Range Interpretation Comme nts GLUCOSE (test code = 2217) 90 MG/DL BUN (test code = 2208) 21 MG/DL CREATININE (test code = 2214) 0.42 MG/DL eGFR AMER. (test cod e = 59252) 145 ML/MIN/1.73 eGFR NON- AMER. (test code = 09761) 126 ML/MIN/1.73 CALC BUN/CREAT (test code = [...] code = 2219) <5 U/L Henry ContrerasLIPID [id number] 00:00:00* Test Item Value Reference Range Interpretation Comme nts CHOLESTEROL (test code = 2210) 186 MG/DL TRIGLYCERIDES (test code = 2232) 131 MG/DL HDL CHOLESTEROL (test code = 2220) 67 MG/DL CALC LDL CHOL (test code = 2237) 93 MG/DL RISK RATIO LDL/HDL (test cod e = 2238) 1.39 RATIO Henry ContrerasCBC W/AUTO [id number] 00:00:00* Test Item Value Reference Range Interpretation [...] code = 1015) 152 K/UL Henry ContrerasHEMOGLOBIN [id number] 00:00:00* Test Item Value Reference Range Interpretation Comme shaina HEMOGLOBIN A1c (test code = 29473) 5.2 % Henry [id number] 00:00:00* Test Item Value Reference Range Interpretation Comme nts TSH (test code = 2821) 2.020 UIU/ML Henry ContrerasCOMPREHENSIVE METABOLIC [id number] 00:00:00* Test Item Value Reference Range Interpretation Comme nts GLUCOSE (test code = 2217) 90 MG/DL BUN (test code = 2208) 21 MG/DL CREATININE (test code = 2214) 0.42 MG/DL eGFR AMER. (test cod e = 08426) 145 ML/MIN/1.73 eGFR NON- AMER. (test code = 34052) 126 ML/MIN/1.73 CALC BUN/CREAT (test code = [...]
[2024-08-03] MEDS ORDERED: ONDANSETRON 4 MG/2 ML VIAL ONE (12:07)
[2024-08-03] MEDS ORDERED: MECLIZINE HCL 12.5 MG TAB ONE (12:07)
[2024-08-03] MEDS ORDERED: NA CHLORIDE 0.9% 1,000 ML ONE (12:07)
[2024-08-03 12:39] LABS: Absolute Basophils 0.1 K/uL (0-0.5); Absolute Eosinophils 0.2 K/uL (0-0.5); Absolute Lymphocytes (CBC) 1.9 K/uL (0.7-4.9); Absolute Monocytes 0.4 K/uL (0.1-1.3); Absolute Neutrophil 1.7 K/uL (1.8-8.0); Basophils % 1.2 % (0-1.3); Hematocrit 33.8 % (36.0-45.0); Hemoglobin 11.4 g/dL (12.0-15.0); Lymphocytes % 45.6 % (15.3-44.8); MCH 28.5 pg (27.0-35.0); MCHC 33.7 g/dL (32.0-36.0); MCV 84.6 fL (80-100); MPV 7.4 fL (7.6-11.3); Monocytes % 10.3 % (3.3-12.3); Neutrophils % 38.9 % (41.7-73.7); Nucleated Red Blood Cells % 0.1 % (0-0); Platelets 164 thou/uL (152-406); Red Cell Distribution Width 16.1 % (12.1-15.2)
[2024-08-03 12:42] LABS: PT Prothrombin Time 11.1 SECONDS (9.4-12.5); PTT, Activated Partial Thromb 41.9 SECONDS (24.3-36.9); Protime INR 1.06
[2024-08-03 12:54] LABS: Anion Gap 9.2 mEq/L (5.0-15.0); Potassium 4.2 mEq/L (3.5-5.1); Thyroid Stimulating Hormone 1.51 uIU/mL (0.358-3.740)
--- NOTE | 2024-08-03 13:22 | RAD REPORT ---
EXAM: CT brain without contrast HISTORY: Headache and ataxia COMPARISON: 2023 TECHNIQUE: Multiple contiguous axial images were obtained and a CT of the brain without contrast.. Sagittal and coronal reconstruction performed. Automated exposure control, adjustment of the mA and/or kV according to patient size, and/or iterative reconstruction. Unless otherwise specified, incidental f indings do not require dedicated imaging follow-up FINDINGS: An intracranial bleed is not seen Ventricles are normal caliber No extra-axial fluid collection noted No significant hypodensity within the brain Mild to moderate cerebellar vermis atrophy No fluid within the visualized sinuses or mastoids noted. IMPRESSION: No acute intracranial abnormality noted. If the patient continues to have symptoms to suggest an acute intracranial abnormality then MRI of th e brain would be recommended.
--- NOTE | 2024-08-03 13:32 | RAD REPORT ---
EXAMINATION: CTA HEAD CLINICAL INDICATION: Ataxia/dizziness TECHNIQUE: Axial CT images were obtained through the head after 100 cc Isovue-370 intravenous contras t utilizing angiographic protocol with 3D post-processing (maximum intensity projection images, volume rendered images and/or shaded surface rendered images). One or more of the following dose red uction techniques were used: Automated exposure control, adjustment of the mA and/or kV according to patient size, and/or iterative reconstruction. Unless otherwise specified, incidental findings do not require dedicated imaging follow-up. COMPARISON: None FINDINGS: Distal internal carotid, basilar, anterior cerebral, middle cerebral and posterior cerebral arteries do not demonstrate a significant stenosis An aneurysm not noted. No large vessel occlusion IMPRESSION: No acute vascular abnormality displayed
--- NOTE | 2024-08-03 13:32 | RAD REPORT ---
EXAMINATION: Neck Angio CLINICAL INDICATION: Neck pain ataxia TECHNIQUE: Axial CT images were obtained from the aortic arch to the skull base after intravenous adm inistration of 100 cc Isovue-370 utilizing angiographic protocol. Multiplanar reformats, as well as 3D post-processing (maximum intensity projection images, volume rendered images and/or shaded surface rendered images) were generated and reviewed. One or more of the following dose reduction techniques were used: Automated exposure control, adjustment of the mA and/or kV according to patient size, and/or iterative reconstruction. Unless otherwise specified, incidental findings do not require dedicated imaging follow-up. COMPARISON: No prior exam. FINDINGS: The visualized aortic arch and great vessels do not demonstrate a significant abnormality No significant plaque within the common carotid, internal carotid and external carotid arteries bilat erally Hypoplastic distal left vertebral artery. Right vertebral artery unremarkable No significant stenosis noted. A dissection is not seen. Methods for NASCET criteria: Mild stenosis, 0% to 49%; Moderate stenosis 50% to 69%; Severe stenosis, 70% to 99% IMPRESSION: No acute vascular abnormality displayed
--- NOTE | 2024-08-03 13:40 | ER ---
Nurse's Notes [facility] Name: Davida Hodges Age: 49 yrs Sex: Female : 1975 Arrival Date: 08/03/2024 Time: 11:22 Bed 17 Private MD: Diagnosis: Headache;Vertigo Presentation: 08/03 11:46 Chief complaint: Patient states: dizziness, trouble walking since Saturday , dizziness iw is worse with movement. Coronavirus screen: At this time, the client does not indicate any symptoms associated with coronavirus-19. Ebola Screen: No symptoms or risks identified at this time. Initial Sepsis Screen: Does the patient meet any 2 criteria? No. Patient's initial sepsis screen is negative. Does the patient have a suspected source of infection? No. Patient's initial sepsis screen is negative. Risk Assessment: Do you want to hurt yourself or someone else? Patient reports no desire to harm self or others. Onset of symptoms was August 01, 2024. 11:46 Method Of Arrival: Wheelchair iw 11:46 Acuity: CARMITA 3 iw Triage Assessment: 12:00 Headache History: The patient has had previous headaches and this one is similar to bp previous episodes. General: Appears in no apparent distress. Behavior is calm, cooperative. Pain: Complains of pain in forehead. EENT: No deficits noted. Neuro: Reports headache. Cardiovascular: No deficits noted. Respiratory: No deficits noted. GI: No signs and/or symptoms were reported involving the gastrointestinal system. : No signs and/or symptoms were reported regarding the genitourinary system. Derm: No deficits noted. Musculoskeletal: No deficits noted. 14:03 Pain: Also complains of no other associated symptoms. bp Historical: - Allergies: 11:47 CARBAMAZEPINE DERIVATIVES; iw 11:47 Depakote; iw 11:47 Tegretol; iw - PMHx: 11:47 Seizure; iw - Immunization history:: Adult Immunizations unknown. - Infectious Disease History:: Denies. - Family history:: not pertinent. - Hospitalizations: : No recent hospitalization is reported. - Social history:: Smoking status: Patient denies any tobacco usage or history of. Screenin:51 [facility] ED Fall Risk Assessment (Adult) History of falling in the last 3 months, me1 including since admission No falls in past 3 months (0 pts) Confusion or Disorientation No (0 pts) Intoxicated or Sedated No (0 pts) Impaired Gait No (0 pts) Mobility Assist Device Used No (0 pt) Altered Elimination No (0 pt) Score/Fall Risk Level 0 - 2 = Low Risk Maintained a safe environment, Provided non-skid footwear, Hourly rounding (assess needs \T\ fall precautionary measures) done. Abuse screen: Denies threats or abuse. Nutritional screening: No deficits noted. Tuberculosis screening: No symptoms or risk factors identified. Assessment: 12:51 General: Appears in no apparent distress. Behavior is calm, cooperative, appropriate me1 for age, Reports dizziness, trouble walking since Saturday , dizziness is worse with movement. Pain: Complains of pain in forehead and top of head Pain does not radiate. Pain currently is 6 out of 10 on a pain scale. Quality of pain is described as aching, Pain began gradually, Is continuous. Neuro: Level of Consciousness is awake, alert, obeys commands, Oriented to person, place, time, situation, Appropriate for age. Neuro: Reports dizziness, headache. Cardiovascular: Cardiovascular: Patient's skin is warm and dry. Respiratory: Airway is patent Respiratory effort is even, unlabored, Respiratory pattern is regular, symmetrical. GI: No signs and/or symptoms were reported involving the gastrointestinal system. : No signs and/or symptoms were reported regarding the genitourinary system. EENT: No signs and/or symptoms were reported regarding the EENT system. Derm: Skin is intact, is healthy with good turgor, Skin is pink, warm \T\ dry. Musculoskeletal: No signs and/or symptoms reported regarding the musculoskeletal system. 13:27 Reassessment: Patient appears in no apparent distress at this time. Patient is alert, bp oriented x 3, equal unlabored respirations, skin warm/dry/pink. Vital Signs: 11:46 BP 127 / 74; Pulse 60; Resp 16; Temp 98.4; Pulse Ox 99% on R/A; iw 13:27 BP 115 / 98; Pulse 63; Resp 16; Pulse Ox 100% ; bp [place] Coma Score: 13:38 Eye Response: spontaneous(4). Motor Response: obeys commands(6). Verbal Response: rn oriented(5). Total: 15. ED Course: 11:25 Patient arrived in ED. al6 11:33 Yong Banks MD is Attending Physician. rn 11:47 Triage completed. iw 11:47 Arm band placed on. iw 11:59 Jose Jama, RN is Primary Nurse. bp 12:15 Missed attempt(s): 20 gauge Bleeding controlled, band aid applied, catheter tip intact. ty 12:25 Missed attempt(s): 22 gauge Bleeding controlled, band aid applied, catheter tip intact. td1 12:26 T4 Free Sent. me1 12:26 TSH Sent. me1 12:26 Protime (+inr) Sent. me1 12:26 Ptt, Activated Sent. me1 12:26 Basic Metabolic Panel Sent. me1 12:26 CBC with Diff Sent. me1 12:26 Initial lab(s) drawn, by me, sent to lab. Inserted saline lock: 22 gauge in right ms1 antecubital area, using aseptic technique. 12:51 Patient has correct armband on for positive identification. Bed in low position. Call ms1 light in reach. Side rails up X 1. Provided Education on: POC. Verbalized understanding. Client placed on continuous cardiac and pulse oximetry monitoring. NIBP monitoring applied. Pulse ox on. NIBP on. 12:51 No provider procedures requiring assistance completed. me1 13:13 CT Head Brain wo Cont In Process Unspecified. EDMS 13:[address] In Process Unspecified. EDMS 13:[address] In Process Unspecified. EDMS 14:02 IV discontinued, intact, bleeding controlled, No redness/swelling at site. Pressure bp dressing applied. Administered Medications: 12:26 Drug: NS 0.9% IV 1000 ml IV at 1000 ml once; to be given as a bolus over 60 minutes me1 Route: IV; Rate: 1000 ml; Site: right antecubital; 14:03 Follow up: IV Status: Completed infusion bp 12:26 Drug: Ondansetron IVP 4 mg IVP once; over 2 minutes Route: IVP; Site: right antecubital;me1 14:03 Follow up: Response: No adverse reaction bp 12:27 Drug: Meclizine PO 50 mg PO once Route: PO; me1 14:03 Follow up: Response: No adverse reaction bp Medication: 12:51 VIS not applicable for this client. me1 Outcome: 13:39 Discharge ordered by . rn 14:02 Discharged to home ambulatory, with family, bp 14:02 Condition: stable 14:02 Discharge instructions given to patient, Instructed on discharge instructions, follow up and referral plans. medication usage, Demonstrated understanding of instructions, follow-up care, medications, Prescriptions given X 2, 14:03 Patient left the ED. bp Signatures: Dispatcher [employer] EDLaila Chavez RN RN iw Yong Banks MD MD rn Peltier, Brian, RN RN bp Eddleman, Michelle, RN RN me1 Alfredo Tompkins Alissa al6 Julio C [place] td1 Corrections: (The following items were deleted from the chart) 12:51 11:46 Chief complaint: Patient states: dizziness, trouble walking since Saturday , me1 dizziness is worse with movement iw
--- NOTE | 2024-08-03 13:40 | EDPHYS ---
Physician Documentation [facility] Name: Davida Hodges Age: 49 yrs Sex: Female : 1975 Arrival Date: 08/03/2024 Time: 11:22 Bed 17 Private MD: ED Physician Yong Banks HPI: 08/03 11:49 This 49 yrs old Female presents to ER via Wheelchair with complaints of rn Headache. 11:49 The patient complains of pain to the top of head and forehead. The patient describes rn the headache as aching, intermittent. Onset: The symptoms/episode began/occurred 3 day(s) ago. Associated signs and symptoms: Pertinent positives: dizziness, nausea, vomiting, Pertinent negatives: altered mental status, fever, neck stiffness, rash, vision changes, vision loss. Severity of symptoms: At its worst the pain was mild, in the emergency department the pain is unchanged. The patient has experienced a previous episode. Patient reports headache, dizziness, nausea and vomiting, worse when moving head that started 2 or 3 days ago. Has had this once before. No recent head injury. No focal neurological deficit. No vision changes. No speech problem. Denies any fever or chills. No diarrhea. No abdominal pain.. Historical: - Allergies: 11:47 CARBAMAZEPINE DERIVATIVES; iw 11:47 Depakote; iw 11:47 Tegretol; iw - PMHx: 11:47 Seizure; iw - Immunization history:: Adult Immunizations unknown. - Infectious Disease History:: Denies. - Family history:: not pertinent. - Hospitalizations: : No recent hospitalization is reported. - Social history:: Smoking status: Patient denies any tobacco usage or history of. ROS: 11:49 Constitutional: Negative for fever, chills, and weight loss, Eyes: Negative for injury, rn pain, redness, and discharge, Neck: Negative for injury, pain, and swelling, Cardiovascular: Negative for chest pain, palpitations, and edema, Respiratory: Negative for shortness of breath, cough, wheezing, and pleuritic chest pain, Abdomen/GI: Negative for abdominal pain, positive for nausea and vomiting MS/Extremity: Negative for injury and deformity, Skin: Negative for injury, rash, and discoloration, Neuro: Positive for headache Exam: 11:49 Constitutional: This is a well developed, well nourished patient who is awake, alert, rn and in no acute distress. Head/Face: Normocephalic, atraumatic. Eyes: Pupils equal round and reactive to light, extra-ocular motions intact. Lids and lashes normal. Conjunctiva and sclera are non-icteric and not injected. Cornea within normal limits. Periorbital areas with no swelling, redness, or edema. ENT: Dry mucous membranes Cardiovascular: Regular rate and rhythm. No pulse deficits. Respiratory: No increased work of breathing, no retractions or nasal flaring. Abdomen/GI: Soft, non-tender MS/ Extremity: Pulses equal, no cyanosis. Neurovascular intact. Full, normal range of motion. Equal circumference. Neuro: Awake and alert, GCS 15, oriented to person, place, time, and situation. Cranial nerves II-XII grossly intact. Motor strength 5/5 in all extremities. Sensory grossly intact. Vital Signs: 11:46 BP 127 / 74; Pulse 60; Resp 16; Temp 98.4; Pulse Ox 99% on R/A; iw 13:27 BP 115 / 98; Pulse 63; Resp 16; Pulse Ox 100% ; bp [place] Coma Score: 13:38 Eye Response: spontaneous(4). Motor Response: obeys commands(6). Verbal Response: rn oriented(5). Total: 15. MDM: 11:33 Medical Screening Exam initiated rn 11:51 ED course: Patient with reproducible symptoms when turning head to the left. rn 13:38 Differential diagnosis: hypertensive headache, intracerebral hemorrhage, migraine, rn neoplasm, sinusitis, tension headache, vasomotor headache, Vertigo. Data reviewed: vital signs, nurses notes, lab test result(s), radiologic studies, CT scan, and as a result, I will discharge patient. Counseling: I had a detailed discussion with the patient and/or guardian regarding the historical points, exam findings, and any diagnostic results supporting the discharge/admit diagnosis, lab results, radiology results, the need for outpatient follow up, to return to the emergency department if symptoms worsen or persist or if there are any questions or concerns that arise at home. Response to treatment: the patient's symptoms have markedly improved after treatment, and as a result, I will discharge patient. Special discussion: I discussed with the patient/guardian in detail that at this point there is no indication for admission to the hospital. It is understood, however, that if the symptoms persist or worsen the patient needs to return immediately for re-evaluation. Based on the history and exam findings, there is no indication for further emergent testing or inpatient evaluation. I discussed with the patient/guardian the need to see the neurologist for further evaluation of the symptoms. ED course: No acute findings and workup including CT head or CT angiogram of the head and neck. Most likely vertigo given worsening with change in head position and associated with nausea and vomiting. Will discharge home with as needed Zofran and meclizine and have her follow-up with neurology. Spoke to patient as well as both family members that brought her in.. 08/03 11:47 Order name: CBC with Diff; Complete Time: 12:55 rn 08/03 11:47 Order name: Basic Metabolic Panel; Complete Time: 12:55 rn 08/03 11:47 Order name: Protime (+inr); Complete Time: 12:55 rn 08/03 11:47 Order name: Ptt, Activated; Complete Time: 12:55 rn 08/03 11:48 Order name: TSH; Complete Time: 12:55 rn 08/03 11:48 Order name: T4 Free; Complete Time: 12:55 rn 08/03 11:47 Order name: CT Head Brain wo Cont; Complete Time: 13:34 rn 08/03 11:48 Order name: Head Angio CT; Complete Time: 13:34 rn 08/03 11:48 Order name: Neck Angio CT; Complete Time: 13:34 rn 08/03 11:47 Order name: IV Start; Complete Time: 12:26 rn Administered Medications: 12:26 Drug: NS 0.9% IV 1000 ml IV at 1000 ml once; to be given as a bolus over 60 minutes me1 Route: IV; Rate: 1000 ml; Site: right antecubital; 14:03 Follow up: IV Status: Completed infusion bp 12:26 Drug: Ondansetron IVP 4 mg IVP once; over 2 minutes Route: IVP; Site: right antecubital;me1 14:03 Follow up: Response: No adverse reaction bp 12:27 Drug: Meclizine PO 50 mg PO once Route: PO; me1 14:03 Follow up: Response: No adverse reaction bp Disposition Summary: 08/03/24 13:39 Discharge Ordered Notes: Location: Home rn Problem: new rn Symptoms: have improved rn Condition: Stable rn Diagnosis - Headache rn - Vertigo rn Followup: rn - With: Private Physician - When: As needed - Reason: Recheck today's complaints, Re-evaluation by your physician Discharge Instructions: - Discharge Summary Sheet rn - Migraine Headache rn - Vertigo rn Forms: - Medication Reconciliation Form rn - Antibiotic harness cleaner - Prescription Opioid Use rn - Patient Portal Instructions rn - Leadership Thank You Letter rn Prescriptions: - ondansetron 4 mg Oral Tablet,disintegrating - take 1 tablet ORAL route every 8 hours As needed; 12 tablet; Refills: 0, rn Product Selection Permitted - Meclizine 25 mg Oral Tablet - take 1 tablet ORAL route every 8 hours As needed; 30 tablet; Refills: 0, rn Product Selection Permitted Signatures: Dispatcher [employer] Laila Warren, RN RN iw Yong Banks MD MD rn Eddleman, Michelle, RN RN me1 Jose Jama RN bp
[2024-08-03 14:27] VITALS: TEMP 98.4
[2024-08-03 14:28] VITALS: BP 115/98; O2SAT 100
== END 2024-08-03 14:03 | disposition home or self-care (01) ==
LOC: ER 11:22
DX: R51.9 Headache, unspecified (principal); R42 Dizziness and giddiness
CPT/HCPCS: 36415; 70450; 70496; 70498; 80048; 84439; 84443; 85025; 85610; 85730; 96361; 96374; 99284; J2405; J7030; J8597; Q9967

== ENCOUNTER 2024-08-04 17:19 | Emergency (ER) | payer SELFPAY ==
--- OUTSIDE RECORDS SUMMARY | 2024-08-04 17:29 | XMS REPORT | Continuity of Care Document ---
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 00:00:00 Outpatient Visit [facility] [id number] Henry Contreras 2023-10-04 15:25:52 2023-10-04 15:25:52 Outpatient SFA [facility] [id number] Henry Contreras 2023-10-01 00:00:00 2023-10-01 00:00:00 Telephone Indio Phelan [facility] 1.2.840.114 350.1.13.10 4.2.7.2.686 [id number] [facility] 2023-09-16 16:03:08 2023-09-16 16:03:08 Outpatient SFA [facility] [id number] Henry Contreras 2023-08-01 10:00:49 2023-08-01 10:00:49 Outpatient [facility] [id number] Henry Quiles [place] 2023-07-23 14:20:00 2023-07-23 16:57:02 Outpatient INDIO OLIVEROS [facility] [id number] [facility] 2023-07-23 14:20:00 2023-07-23 16:57:02 [facility] 1.2.840.114 350.1.13.10 4.2.7.2.686 [id number] [facility] 2023-07-23 00:00:00 2023-07-23 00:00:00 Orders Only Doctor Unassigned, [place] [facility] 1..840.114 350.1.13.10 4.2.7.2.686 [id number] [facility] 2023-07-04 16:48:23 2023-07-04 16:48:23 Outpatient SFA [facility] [id number] Henry Contreras 2023-06-18 10:35:36 2023-06-18 10:35:36 Outpatient SFA [facility] [id number] Henry Contreras 2023-06-05 00:00:00 2023-06-05 00:00:00 Orders Only Doctor Unassigned, [place] [facility] 1.2.840.114 350.1.13.10 4.2.7.2.686 [id number] [facility] 2023-06-04 16:00:39 2023-06-04 16:00:39 Outpatient SFA [facility] [id number] Henry Contreras 2023-05-24 15:38:52 2023-05-24 15:38:52 Outpatient [facility] [id number] Henry Contreras 2023-05-22 00:00:00 2023-05-22 00:00:00 Letter (Out) Neurology [facility] 1.2.840.114 350.1.13.10 4.2.7.2.686 [id number] [facility] 2023-05-20 00:00:00 2023-05-20 00:00:00 Orders Only Doctor Unassigned, [place] [facility] 1.2.840.114 350.1.13.10 4.2.7.2.686 [id number] [facility] 2023-05-17 15:07:14 2023-05-17 15:07:14 Outpatient SFA [facility] [id number] Henry Contreras 2023-03-02 12:27:43 2023-03-02 12:27:43 Outpatient SFA [facility] [id number] Henry Contreras 2023-01-09 17:11:26 2023-01-09 17:11:26 Outpatient SFA [facility] [id number] Henry Contreras 2022-11-04 14:04:00 2022-11-05 11:09:00 Emergency E JESS PAIGE [facility] [id number] [facility] 2022-09-24 12:33:00 2022-09-24 12:51:00 Emergency Heri Snow [facility] 1..840.114 350.1.13.10 4.2.7.2.686 [id number] [facility] 2022-09-22 00:00:00 2022-09-22 00:00:00 Nurse Triage Madhavi Mcginnis [facility] 1..840.114 350.1.13.10 4.2.7.2.686 [id number] [facility] 2022-09-18 10:09:00 2022-09-19 14:28:00 Inpatient EM Marly Mendenhall [facility] OBSE [id number] [facility] 2022-09-16 22:50:00 2022-09-17 01:40:00 Emergency EM Guero Asim [facility] FABI [id number] [facility] 2022-09-14 14:52:00 2022-09-15 14:00:00 Inpatient EM Vladimir Forbes [facility] TELE [id number] [facility] 2022-09-13 09:34:00 2022-09-13 13:00:00 Emergency EM Brad Woodall [facility] FABI [id number] [facility] 2022-09-10 23:39:00 2022-09-11 11:28:00 Emergency EM Russel Sewell [facility] [id number] [facility] 2022-09-10 18:57:00 2022-09-10 20:20:00 Emergency Lisa Morfin Whitney [facility] 1..840.114 350.1.13.10 4.2.7.2.686 [id number] [facility] 2022-09-10 18:57:00 2022-09-10 20:20:00 Emergency SANDRITA CHÁVEZ [facility] ERT [id number] [facility] 2022-09-09 20:45:00 2022-09-09 22:46:00 Emergency X SANDRITA KEY [facility] ERT [id number] [facility] 2022-09-09 20:45:00 2022-09-09 22:46:00 Emergency Sandrita Key Hakeem [facility] 1.2.840.114 350.1.13.10 4.2.7.2.686 [id number] [facility] 2022-09-06 18:09:00 2022-09-07 00:51:00 Emergency X TAYO BOYD [facility] ERT [id number] [facility] 2022-09-06 18:09:00 2022-09-07 00:51:00 Emergency Tayo Boyd [facility] 1.2.840.114 350.1.13.10 4.2.7.2.686 [id number] [facility] 2022-08-21 14:11:33 2022-08-21 14:11:33 Outpatient [facility] [id number] Henry Quiles [place] 2022-07-17 15:03:48 2022-07-17 15:03:48 Outpatient [facility] [id number] Hnery Quiles [place] 2021-10-02 15:56:00 2021-10-02 19:00:00 Emergency X JAVED FRANK [facility] ERT [id number] [facility] 2021-10-02 15:56:00 2021-10-02 19:00:00 Emergency Javed Frank [facility] 1.2.840.114 350.1.13.10 4.2.7.2.686 [id number] [facility] 2021-05-05 13:22:00 2021-05-05 14:48:00 Emergency X DEON NUNEZ [facility] ERT [id number] [facility] 2021-05-05 13:22:00 2021-05-05 14:48:00 Emergency Deon Nunez [facility] 1.2.840.114 350.1.13.10 4.2.7.2.686 [id number] [facility] 2021-05-05 00:00:00 2021-05-05 00:00:00 Orders Only Doctor Unassigned, [place] [facility] 1.2.840.114 350.1.13.10 4.2.7.2.686 [id number] [facility] 2019-12-15 17:11:56 2019-12-15 18:04:00 Emergency Kp Gilliland [facility] 1.2.840.114 350.1.13.10 4.2.7.2.686 [id number] 2019-12-15 17:11:56 2019-12-15 18:04:00 Emergency Kp Gilliland [facility] 1.2.840.114 350.1.13.10 4.2.7.2.686 [id number] [facility] 2019-12-15 17:11:56 2019-12-15 17:11:56 Emergency X Kp GILLILAND [facility] ERT [id number] [facility] 2019-10-25 18:31:31 2019-10-25 19:21:00 Emergency Kristin Miller [facility] 1.2.840.114 350.1.13.10 4.2.7.2.686 [id number] 2019-10-25 18:31:31 2019-10-25 19:21:00 Emergency Kristin Miller [facility] 1.2.840.114 350.1.13.10 4.2.7.2.686 [id number] [facility] 2019-10-25 18:31:31 2019-10-25 18:31:31 Emergency X KRISTIN MILLER [facility] ERT [id number] [facility] 2019-08-13 13:30:00 2019-08-13 14:36:00 Emergency Floridalma Evans [facility] 1.2.840.114 350.1.13.10 4.2.7.2.686 [id number] 2019-08-13 13:30:00 2019-08-13 14:36:00 Emergency Floridalma Evans [facility] 1.2.840.114 350.1.13.10 4.2.7.2.686 [id number] [facility] 2019-08-13 13:30:00 2019-08-13 14:36:00 Emergency X FLORIDALMA EVANS [facility] ERT [id number] [facility] 2019-07-22 13:42:11 2019-07-22 19:02:00 Emergency Unknown, Attending Lisa Morfin [facility] 1.2.840.114 350.1.13.10 4.2.7.2.686 [id number] 2019-07-22 13:42:11 2019-07-22 19:02:00 Emergency X LISA MORFIN [facility] ERT [id number] [facility] 2019-07-22 13:42:11 2019-07-22 19:02:00 Emergency Unknown, Attending Lisa Morfin [facility] 1.2.840.114 350.1.13.10 4.2.7.2.686 [id number] [facility] 2019-07-13 20:17:19 2019-07-13 21:48:00 Emergency X HENRY OWEN [facility] ERT [id number] [facility] 2019-07-13 20:17:19 2019-07-13 21:48:00 Emergency Trena Henry [facility] 1.2.840.114 350.1.13.10 4.2.7.2.686 [id number] [facility] 2019-07-10 14:26:03 2019-07-10 16:33:00 Emergency X DEBBIE PAYTON [facility] ERT [id number] [facility] 2019-07-10 14:26:03 2019-07-10 16:33:00 Emergency Debbie Payton [facility] 1.2.840.114 350.1.13.10 4.2.7.2.686 [id number] [facility] 2019-07-04 19:09:02 2019-07-04 22:51:00 Emergency X LISA MORFIN [facility] ERT [id number] [facility] 2019-06-30 10:33:08 2019-06-30 13:10:00 Emergency X DEON NUNEZ [facility] ERT [id number] [facility] 2019-05-25 11:58:19 2019-05-25 15:37:00 Emergency X DEON NUNEZ [facility] ERT [id number] [facility] 2019-04-09 22:29:37 2019-04-09 23:28:00 Emergency X FLORIDALMA EVANS [facility] ERT [id number] [facility] 2019-01-21 18:38:01 2019-01-21 19:59:00 Emergency Le Ramirez [facility] 1.2.840.114 350.1.13.10 4.2.7.2.686 [id number] 2019-01-21 18:38:01 2019-01-21 19:59:00 Emergency Le Ramirez [facility] 1.2.840.114 350.1.13.10 4.2.7.2.686 [id number] [facility] Results Test Description Test Time Test Comments Results Result Co mments Source Henry Griffin TRISTAN [id number] 00:00:00* Test Item Value Reference Range Interpretation Comme nts TSH, THIRD GENERATION (test code = 2821) 3.970 UIU/ML Henry Daniel [id number] 04:20:00* Test Item Value Reference Range Interpretation Comme nts FT4 (test code = FT4) 1.05 ng/dL 0.78-2.19 T3 [id number] 04:20:00* Test Item Value Reference Range Interpretation Comme nts T3UP (test code = T3UP) 40.9 % 23.5-40.5 H Thyroxine (T4) free index in Serum or [id number] 04:19:00* Test Item Value Reference Range Interpretation Comme nts Thyroxine (T4) free index in Serum or Plasma (test code = 97422-8) 1.05 ng/dL 0.78-2.19 N [facility])Thyroid hormone uptake (T-uptake) in Serum or P 2023-11-24 04:18:00* Test Item Value Reference Range Interpretation Comme nts Thyroid hormone uptake (T-up take) in Serum or Plasma (test code = 33577-3) 40.9 % 23.5-40.5 H [facility])URINE DRUG [id number] 00:43:00* Test Item Value Reference Range Interpretation [...] abuse 5 panel - Urine by Screen iprynd0791-66-03 00:40:00 NegativeNegativeNegativeNegativeNegativeNegativeNegative[facility])RYBADNAJBG0862-29-85 00:33:00* Test Item Value Reference Range Interpretation [...] /HPF 0-2 Urinalysis panel - Urine by Efhx5416-69-33 00:33:00* Test Item Value Reference Range Interpretation Comme nts Ketones [Presence] in Urine (test code = 09381-4) 15 MG/DL NEG N pH of Urine (test code = 2756-5) 5.5 1 5.0-7.5 N Urobilinogen [Presence] in U rine (test code = 52742-7) 0.2 EU/DL 0.2-1.0 N Specific gravity of Urine (t est code = 2965-2) 1.013 1 1.0-1.025 N Leukocytes [Presence] in Uri ne sediment by Light microscopy (test code = 68797-7) 10 /HPF 0.0-5.0 H Erythrocytes [Presence] in U rine sediment by Light microscopy (test code = 72945-9) 2 /HPF 0.0-2.0 N [facility]VITAMIN [id number] 22:47:00* Test Item Value Reference Range Interpretation Comme nts B12 (test code = B12) 880 pg/mL 239-931 [id number] 22:47:00* Test Item Value Reference Range Interpretation Comme nts FOLATE (test code = FOLATE) 8.9 ng/mL 2.76-20.0 THYROID STIMULATION [id number] 22:47:00* Test Item Value Reference Range Interpretation Comme nts TSH (test code = TSH) 6.62 UIU/ML 0.465-4.68 H Cobalamin (Vitamin B12) [Mass/volume] in Mmyic3215-65-71 22:47:00* Test Item Value Reference Range Interpretation Comme nts Cobalamin (Vitamin B12) [Mass/volume] in Serum or Plasma (test code = 2132-9) 880 pg/mL 239.0-931.0 N [facility])Folate [Mass/volume] in Serum or Crfhxh4714-82-20 22:47:00* Test Item Value Reference Range Interpretation Comme nts Folate [Mass/volume] in Seru m or Plasma (test code = 2284-8) 8.9 ng/mL 2.76-20.0 N [facility])Thyrotropin in Serum or Hyixcx0010-79-94 22:47:00* Test Item Value Reference Range Interpretation Comme nts Thyrotropin in Serum or Plas ma (test code = 24230-2) 6.62 UIU/ML 0.465-4.68 H [facility])ER SCREEN FOR HIV 1/ 22:46:00* Test Item Value Reference Range Interpretation Comme [facility] HIV 1/2 AB (test code = SCRN HIV) NEGATIVE NEGATIVE This test is us ed for SCREENING purposes only. All reactive results are prelimenary and confirmation results will follow. HIV 1+2 Ab [Units/volume] in Vbdal4292-16-17 [facility]:45[facility]HEPAT[facility] ANTIBODY [id number] 22:28:00* Test Item Value Reference Range Interpretation Comme nts SCRN HCV (test code = SCRN HCV) NEGATIVE NEGATIVE Hepatitis C Anti body test is for screening purposes only. All reactives will be confirmed by additional testing. Hepatitis C virus Ab [Presence] in Lgjks0102-30-48 22:27:00[facility])B-HCG QUAL (KIT)2023-11-23 22:01:00* Test Item Value Reference Range Interpretation Comme nts HCGQUAL (test code = HCGQUAL) NEGATIVE NEGATIVE URINE: NEGATIVE = < 20 mIU/ML; POSITIVE= >/= 20 mIU/ML SERUM: NEGATIVE = < 10 mIU/ML; POSITIVE= >/= 10 mIU/ML SOURCE (test code = SOURCE) SERUM HCG INTERNAL POSITIVE CNTRL (test code = HCGIPC) PASS PASS HCG LOT # (test code = UHCGLOT) [id number] HCG EXPIRATION DATE (test code = UHCGEXP) Choriogonadotropin.beta subunit ( pfky1392-26-25 22:01:00* Test Item Value Reference Range Interpretation Comme nts Specimen source [Identifier] of Body fluid (test code = 88814-9) SERUM N Reagent Lot number (test cod e = 98708-1) 1 N [facility])CT HEAD W/O [id number] 22:00:00 [facility] 1975 Sex: F[address] [id number] IMAGING REPORTPatient Name: JONATHAN JONESDate of Service: [id number]: 48 Sex: F Order #: [id number] Room: ERSDOB: 1975 X-Ray Number: [id number] Record Number: [id number] Hospital Number: [id number] Physician: LAWRENCE MEJIASOrdering Physician: LAWRENCE MEJIASPROCEDURE: CTHEAD [...] 21:59:03CT Head and Orbit - bilateral WO sjlerhdm9310-69-42 21:59:03 ORDER 1400: CT HEAD W/O CONT (LOINC: 17129-1)ORDER DATE: November 24, 2023 12:50:00 AM [facility]CT ABDOMEN/PELVIS [id number] 21:54:00 [facility] : 1975 Sex: F[address] [address]DQSIBOXCKP IMAGING REPORTPatient Name: JONATHAN JONESDate of Service: [id number]: 48 Sex: F Order #: [id number] Room: ERSDOB: 1975 X-Ray Number: [id number] Record Number: [id number] Hospital Number: [id number] Physician: LWARENCE MEJIASOrdering Physician: LAWRENCE MEJIASPROCEDURE: CT ABDOMEN/PELVIS WITHOUTINDICATIONS: [...] YUNIOR MCKEON 2023-11-23 21:53:03 CT Abdomen and Xsbphr5934-47-02 21:53:03ORDER 1500: CT ABDOMEN/PELVIS WITHOUT (LOINC: 64768-7)ORDER DATE: November 24, 2023 12:50:00 AM [facility])[id number] 21:31:00* Test Item Value Reference Range Interpretation [...] 70-99 Fasting glucos e normal <100 MG/DL- [employer] recommendation CALCIUM (test code = [...] of age is not validated by the fingerer and may not represent the patients true [...] should be used in the calculation". CREATINE [id number] 21:31:00* Test Item Value Reference Range Interpretation Comme nts CK (test code = CK) 115 U/L 30-135 BLOOD ALCOHOL (ETOH)2023-11-23 21:31:00* Test Item Value Reference Range Interpretation Comme nts ALCOHOL BLOOD LEVEL (test code = ALC BLD) <10 MG/DL 0-10 Results ar e to be used for medical purposes (treatment) only. Not intended for non medical purposes. Ethanol [Mass/volume] in Uckwt2822-65-22 21:30:00* Test Item Value Reference Range Interpretation Comme nts Ethanol [Mass/volume] in Blo od (test code = 5640-8) <10 0.0-10.0 [facility])Creatine kinase isoenzymes [interpretation] in 2023-11-23 21:30:00* Test Item Value Reference Range Interpretation Comme nts Creatine kinase isoenzymes [interpretation] in Serum or Plasma Narrative (test code = 35942-7) 115 U/L 30.0-135.0 [facility])Comprehensive metabolic 2000 panel - Serum or P 2023-11-23 21:27:00* Test Item Value Reference Range Interpretation Comme nts Sodium [Moles/volume] in Blood (test code = 2947-0) 137 MMOL/L 137.0-145.0 N Potassium [Moles/volume] in Blood (test code = 6298-4) 4.2 MMOL/L 3.5-5.1 N Chloride [Moles/volume] in Blood (test code = 2069-3) 100 MMOL/L 98.0-107.0 N Carbon dioxide, total [Moles/volume] in Blood (test code = 80664-3) 24 MMOL/L 22.0-30.0 N Urea nitrogen [Mass/volume] in Serum or Plasma (test code = 3094-0) 16 MG/DL 7.0-17.0 N Creatinine [Mass/volume] in Blood (test code = 73620-8) 0.6 MG/DL 0.7-1.2 L Glucose [Mass/volume] in Blood (test code = 2339-0) 80 MG/DL 70.0-99.0 N Calcium [Mass/volume] in Serum or Plasma (test code = 23908-2) 10.3 MG/DL 8.4-10.2 H Protein [Mass/volume] in Serum or Plasma (test code = 2885-2) 9.9 G/DL 6.3-8.2 H Albumin [Presence] in Serum or Plasma (test code = 83266-8) 4.7 G/DL 3.5-5.0 N Bilirubin direct and total panel [Mass/volume] - Serum or Plasma (test code = 97213-2) 0.8 MG/DL 0.2-1.3 N Aspartate aminotransferase [Enzymatic [...] 50 percent [- Reported] (test code = 54223-6) 113.0 mL/min/1.73m2 N Anion gap in Serum or Plasma (test code = 33755-4) 13 mmol/L 4.0-12.0 H [facility])[id number] 21:15:00* Test Item Value Reference Range Interpretation [...] 1.2-7.2 CBC W Auto Differential panel - [id number] 21:15:00* Test Item Value Reference Range Interpretation Comme nts Leukocytes other [Identifier ] in Blood by Automated count (test code = 27699-0) 4.5 K/UL 3.5-10.9 N Erythrocytes [#/volume] in B lood (test code = 69297-4) 4.91 M/UL 4.0-5.0 N Hemoglobin A/Hemoglobin.tota l in Blood (test code = 4546-8) 13.8 G/DL 11.5-15.5 N Hematocrit [Volume Fraction] of Blood (test code = 02813-3) 42.4 % 34.0-46.0 N Erythrocyte mean corpuscular volume [Entitic volume] (test code = 50873-1) 86.4 FL 80.0-98.0 N Erythrocyte mean corpuscular hemoglobin [Entitic mass] (test code = 05892-2) 28.1 PG 28.0-32.0 N Erythrocyte mean corpuscular hemoglobin concentration [Mass/volume] (test code = 69226-1) 32.5 G/DL 32.5-36.5 N Erythrocyte distribution wid th [Ratio] (test code = 97058-6) 14.9 % 11.5-14.5 H Platelets panel - Blood by Automated count (test code = 79441-0) 124 K/UL 150.0-450.0 L Platelet mean volume [Entiti c volume] in Blood by Automated count (test code = 18424-9) 10.0 FL 7.4-10.4 N Neutrophils.segmented/100 leukocytes in Blood (test code = 05801-3) 53.3 % 40.0-75.0 N Lymphocytes Variant/100 leuk ocytes in Blood (test code = 03251-0) 33.9 % 24.0-44.0 N Lymphocytes+Monocytes/100 leukocytes in Blood (test code = 4662-3) 10.0 % 0.0-13.0 N Eosinophils [#/volume] in Bl ood (test code = 07579-3) 2.2 % 0.0-4.0 N Basophils [#/volume] in Bloo d (test code = 99244-4) 0.4 % 0.0-2.0 N Immature granulocytes/100 leukocytes in Blood (test code = 33523-4) 0.2 % 0.0-1.0 N Nucleated erythrocytes [#/vo lume] in Blood (test code = 96653-0) 0 /100 WBC N Neutrophils [#/volume] in Bl ood (test code = 38179-9) 2.4 K/UL 1.2-7.2 N [facility] ([place])PAP TEST, THINPREP, [id number] 16:02:24* Test Item Value Reference Range Interpretation Comme nts SOURCE: (test code = 8001) Cervical/Endoce rvical SLIDES: (test code = 8011) 1 LMP: (test code = 8021) SEE NOTE POST MENOPAUSAL SPECIMEN ADEQUACY: (test code = 71188) (NOTE) Satisfactory for evaluation. Endocervical cells/transformation zone component present. INTERPRETATION: (test code = 06056) NILM/NO EPITH. ABNORMALITY;SEE BELOW --- - NEGATIVE FOR INTRAEPITHELIAL LESION OR MALIGNANCY (NILM) ---- MARINE CARGO SPECIALIST : (test code = 8101) Jami Smalls LOCATION: (test code = 29218) (NOTE) Specimens proces sed and interpreted at [facility], [address] [place], [place] [id number], , CLIA: [id number] CPT: (test code = 8140) (NOTE) [address]82 UNLESS OTH ERWISE INDICATED, COMPUTER AIDED AND MARINE CARGO SPECIALIST SCREENING PERFORMED. The Pap test is a screening test with an inherent, but low probability of error. Your patient should be reminded to consult you immediately if she experiences any suspicious signs or symptoms, regardless of her Pap test result. An alternate report format containing images or consolidated prior Pap history is available as applicable. HPV HIGH RISK WITH GENOTYPE, [id number] 15:53:52* Test Item Value Reference Range Interpretation Comme nts HPV HIGH RISK INTERP (test code = 61142) NEGATIVE NEGATIVE HPV 16 (test code = 82576) NEGATIVE HPV 18 (test code = 48485) NEGATIVE HPV, HR, OTHER GENOTYPES (test code = 70562) NEGATIVE Testing methodol ian is real-time PCR [...] TESTING PERFORMED AT [facility] [address] [place] [address] HOGSHEAD HEAD MATCHER: JATIN FELIPE M.D. CLIA NUMBER [id number] [facility] [place]. [id number] HPV HIGH RISK WITH GENOTYPE, [id number] 00:00:00* Test Item Value Reference Range Interpretation Comme nts HPV HIGH RISK INTERP (test c ode = 50685) NEGATIVE HPV 16 (test code = 84185) NEGATIVE HPV 18 (test code = 20956) NEGATIVE HPV, HR, OTHER GENOTYPES (te st code = 01808) NEGATIVE PDFE (test code = PDFReport) PDF Henry ContrerasPAP TEST, THINPREP, [id number] 00:00:00* Test Item Value Reference Range Interpretation Comme nts SOURCE: (test code = 8001) Cervical/Endocervical SLIDES: (test code = 8011) 1 LMP: (test code = 8021) SEE NOTE SPECIMEN ADEQUACY: (test code = 19076) (NOTE) INTERPRETATION: (test code = 07509) NILM/NO EPITH. ABNORMALITY;SEE BELOW MARINE CARGO SPECIALIST: (test code = 8101) Jami Smalls LOCATION: (test code = 18800) (NOTE) CPT: (test code = 8140) (NOTE) Henry ContrerasHPV HIGH RISK WITH GENOTYPE, [id number] 00:00:00* Test Item Value Reference Range Interpretation Comme nts HPV HIGH RISK INTERP (test c ode = 09282) NEGATIVE HPV 16 (test code = 00588) NEGATIVE HPV 18 (test code = 48634) NEGATIVE HPV, HR, OTHER GENOTYPES (te st code = 14779) NEGATIVE PDFE (test code = PDFReport) PDF Henry Quiles AustinPAP TEST, THINPREP, [id number] 00:00:00* Test Item Value Reference Range Interpretation Comme nts SOURCE: (test code = 8001) Cervical/Endocervical SLIDES: (test code = 8011) 1 LMP: (test code = 8021) SEE NOTE SPECIMEN ADEQUACY: (test code = 78209) (NOTE) INTERPRETATION: (test code = 92072) NILM/NO EPITH. ABNORMALITY;SEE BELOW MARINE CARGO SPECIALIST: (test code = 8101) [facility] LOCATION: (test code = 81241) (NOTE) CPT: (test code = 8140) (NOTE) Henry Quiles AustinHPV HIGH RISK WITH GENOTYPE, [id number] 00:00:00* Test Item Value Reference Range Interpretation Comme nts HPV HIGH RISK INTERP (test c ode = 48686) NEGATIVE HPV 16 (test code = 87118) NEGATIVE HPV 18 (test code = 60980) NEGATIVE HPV, HR, OTHER GENOTYPES (te st code = 75710) NEGATIVE PDFE (test code = PDFReport) PDF Henry Quiles AustinPAP TEST, THINPREP, [id number] 00:00:00* Test Item Value Reference Range Interpretation Comme nts SOURCE: (test code = 8001) Cervical/Endocervical SLIDES: (test code = 8011) 1 LMP: (test code = 8021) SEE NOTE SPECIMEN ADEQUACY: (test code = 74712) (NOTE) INTERPRETATION: (test code = 97555) NILM/NO EPITH. ABNORMALITY;SEE BELOW MARINE CARGO SPECIALIST: (test code = 8101) [facility] LOCATION: (test code = 73986) (NOTE) CPT: (test code = 8140) (NOTE) Henry Quiles AustinHPV HIGH RISK WITH GENOTYPE, [id number] 00:00:00* Test Item Value Reference Range Interpretation Comme nts HPV HIGH RISK INTERP (test c ode = 89580) NEGATIVE HPV 16 (test code = 29534) NEGATIVE HPV 18 (test code = 41589) NEGATIVE HPV, HR, OTHER GENOTYPES (te st code = 55781) NEGATIVE PDFE (test code = PDFReport) PDF Henry F AustinPAP TEST, THINPREP, [id number] 00:00:00* Test Item Value Reference Range Interpretation Comme nts SOURCE: (test code = 8001) Cervical/Endocervical SLIDES: (test code = 8011) 1 LMP: (test code = 8021) SEE NOTE SPECIMEN ADEQUACY: (test code = 36532) (NOTE) INTERPRETATION: (test code = 90731) NILM/NO EPITH. ABNORMALITY;SEE BELOW MARINE CARGO SPECIALIST: (test code = 8101) Jami Smalls LOCATION: (test code = 85479) (NOTE) CPT: (test code = 8140) (NOTE) Henry ContrerasPAP TEST, THINPREP, IMAGED [ADDED]2023-10-10 00:00:00* Test Item Value Reference Range Interpretation Comme nts SOURCE: (test code = 8001) Unspecified SLIDES: (test code = 8011) 2 LMP: (test code = 8021) NOT GIVEN SPECIMEN ADEQUACY: (test code = 51380) (NOTE) INTERPRETATION: (test code = 65540) UNSATISFACTORY; SEE BELOW OTHER COMMENTS: (test code = 8081) (NOTE) MARINE CARGO SPECIALIST: (test code = 8101) Jose Bustillos QC TECHNOLOGIST: (test code = 8111) Jason Whitman,[facility](ASCP),[facility] LOCATION: (test code = 52951) (NOTE) CPT: (test code = 8140) (NOTE) Henry ContrerasHPV HIGH RISK IF ASC/LSIL, THINPREP [ADDED]2023-10-10 00:00:00* Test Item Value Reference Range Interpretation Comme nts HPV HIGH RISK IF ASC/LSIL, THINPREP (test code = 90811) CRITERIA NOT MET Henry ContrerasPAP TEST, THINPREP, IMAGED [ADDED]2023-10-10 00:00:00* Test Item Value Reference Range Interpretation Comme nts SOURCE: (test code = 8001) Unspecified SLIDES: (test code = 8011) 2 LMP: (test code = 8021) NOT GIVEN SPECIMEN ADEQUACY: (test code = 25651) (NOTE) INTERPRETATION: (test code = 05620) UNSATISFACTORY; SEE BELOW OTHER COMMENTS: (test code = 8081) (NOTE) MARINE CARGO SPECIALIST: (test code = 8101) Jose Bustillos QC TECHNOLOGIST: (test code = 8111) Jason WhitmanSCT(ASCP),[facility] LOCATION: (test code = 36574) (NOTE) CPT: (test code = 8140) (NOTE) Henry Quiles AustinHPV HIGH RISK IF ASC/LSIL, THINPREP [ADDED]2023-10-10 00:00:00* Test Item Value Reference Range Interpretation Comme nts HPV HIGH RISK IF ASC/LSIL, THINPREP (test code = 12619) CRITERIA NOT MET Henry Quiles AustinPAP TEST, THINPREP, IMAGED [ADDED]2023-10-10 00:00:00* Test Item Value Reference Range Interpretation Comme nts SOURCE: (test code = 8001) Unspecified SLIDES: (test code = 8011) 2 LMP: (test code = 8021) NOT GIVEN SPECIMEN ADEQUACY: (test code = 77178) (NOTE) INTERPRETATION: (test code = 89614) UNSATISFACTORY; SEE BELOW OTHER COMMENTS: (test code = 8081) (NOTE) MARINE CARGO SPECIALIST: (test code = 8101) Jose Bustillos QC TECHNOLOGIST: (test code = 8111) Jason WhitmanSCT(ASCP),[facility] LOCATION: (test code = 49599) (NOTE) CPT: (test code = 8140) (NOTE) Henry Quiles AustinHPV HIGH RISK IF ASC/LSIL, THINPREP [ADDED]2023-10-10 00:00:00* Test Item Value Reference Range Interpretation Comme nts HPV HIGH RISK IF ASC/LSIL, THINPREP (test code = 74734) CRITERIA NOT MET Henry Quiles AustinPAP TEST, THINPREP, IMAGED [ADDED]2023-10-10 00:00:00* Test Item Value Reference Range Interpretation Comme nts SOURCE: (test code = 8001) Unspecified SLIDES: (test code = 8011) 2 LMP: (test code = 8021) NOT GIVEN SPECIMEN ADEQUACY: (test code = 37234) (NOTE) INTERPRETATION: (test code = 65819) UNSATISFACTORY; SEE BELOW OTHER COMMENTS: (test code = 8081) (NOTE) MARINE CARGO SPECIALIST: (test code = 8101) Jose Bustillos QC TECHNOLOGIST: (test code = 8111) Jason Euperio,[facility](ASCP),[facility] LOCATION: (test code = 05152) (NOTE) CPT: (test code = 8140) (NOTE) Henry Quiles AustinHPV HIGH RISK IF ASC/LSIL, THINPREP [ADDED]2023-10-10 00:00:00* Test Item Value Reference Range Interpretation Comme nts HPV HIGH RISK IF ASC/LSIL, THINPREP (test code = 50148) CRITERIA NOT MET Henry Quiles AustinGONORRHEA, NAAT, THINPREP [ADDED]2023-10-08 00:00:00* Test Item Value Reference Range Interpretation Comme nts GONORRHEA, NAAT, THINPREP (t est code = 19888) NEGATIVE Henry Quiles AustinCHLAMYDIA, NAAT, THINPREP [ADDED]2023-10-08 00:00:00* Test Item Value Reference Range Interpretation Comme nts CHLAMYDIA, NAAT, THINPREP (t est code = 07352) NEGATIVE PDFE (test code = PDFReport) PDF Henry Quiles AustinGONORRHEA, NAAT, THINPREP [ADDED]2023-10-08 00:00:00* Test Item Value Reference Range Interpretation Comme nts GONORRHEA, NAAT, THINPREP (t est code = 73160) NEGATIVE Henry Quiles AustinCHLAMYDIA, NAAT, THINPREP [ADDED]2023-10-08 00:00:00* Test Item Value Reference Range Interpretation Comme nts CHLAMYDIA, NAAT, THINPREP (t est code = 91361) NEGATIVE PDFE (test code = PDFReport) PDF Henry Quiles AustinGONORRHEA, NAAT, THINPREP [ADDED]2023-10-08 00:00:00* Test Item Value Reference Range Interpretation Comme nts GONORRHEA, NAAT, THINPREP (t est code = 36054) NEGATIVE Henry Quiles AustinCHLAMYDIA, NAAT, THINPREP [ADDED]2023-10-08 00:00:00* Test Item Value Reference Range Interpretation Comme nts CHLAMYDIA, NAAT, THINPREP (t est code = 02729) NEGATIVE PDFE (test code = PDFReport) PDF Henry Quiles AustinGONORRHEA, NAAT, THINPREP [ADDED]2023-10-08 00:00:00* Test Item Value Reference Range Interpretation Comme nts GONORRHEA, NAAT, THINPREP (t est code = 52526) NEGATIVE Henry ContrerasCHLAMYDIA, NAAT, THINPREP [ADDED]2023-10-08 00:00:00* Test Item Value Reference Range Interpretation Comme nts CHLAMYDIA, NAAT, THINPREP (t est code = 57772) NEGATIVE PDFE (test code = PDFReport) PDF TRISTAN Grover [id number] 08:14:44* Test Item Value Reference Range Interpretation Comme nts TSH, THIRD GENERATION (test code = 2821) 5.200 UIU/ML 0.400-4.100 H UNLESS OTHERWISE INDICATED, ALL TESTING PERFORMED AT [facility] [address] [place] [address] HOGSHEAD HEAD MATCHER: JATIN FELIPE M.D. CLIA NUMBER [id number] [facility] [place]. [id number] 00:00:00* Test Item Value Reference Range Interpretation Comme nts TSH, THIRD GENERATION (test code = 2821) 5.200 UIU/ML Henry [id number] 00:00:00* Test Item Value Reference Range Interpretation Comme nts TSH, THIRD GENERATION (test code = 2821) 5.200 UIU/ML Henry [id number] 00:00:00* Test Item Value Reference Range Interpretation Comme nts TSH, THIRD GENERATION (test code = 2821) 5.200 UIU/ML Henry [id number] 00:00:00* Test Item Value Reference Range Interpretation Comme nts TSH, THIRD GENERATION (test code = 2821) 5.200 UIU/ML TRISTAN Grover [id number] 23:53:27* Test Item Value Reference Range Interpretation Comme nts TSH, THIRD GENERATION (test code = 2821) 11.100 UIU/ML 0.400-4.100 H COMPREHENSIVE METABOLIC [id number] 23:46:03* Test Item Value Reference Range Interpretation Comme nts GLUCOSE (test code = 2217) 97 MG/DL 70-99 BUN (test code = 2208) 7 MG/DL 6-20 CREATININE (test code = 2214) 0.61 MG/DL 0.60-1.30 eGFR (2020 CKD-EPI) (test code = 00884) 110 ML/MIN/1.73 >60 CALC BUN/CREAT (test code [...] 13 U/L 5-40 CBC W/AUTO DIFF WITH [id number] 08:48:44* Test Item Value Reference Range Interpretation [...] 0.00-0.10 ABS NUCLEATED RBCS (test code = 15991) 0.00 K/UL 0.00-0.11 UNLESS OTHER MONTOYA INDICATED, ALL TESTING PERFORMED AT [facility] [address] [place] [address] HOGSHEAD HEAD MATCHER: JATIN FELIPE M.D. CLIA NUMBER [id number] [facility] [place]. [id number] 00:00:00* Test Item Value Reference Range Interpretation Comme nts TSH, THIRD GENERATION (test code = 2821) 11.100 UIU/ML [facility]HE[facility] W/AUTO [id number] 00:00:00* Test Item Value Reference Range Interpretation [...] ABS NUCLEATED RBCS (test cod e = 18029) 0.00 K/UL Henry ContrerasCOMPREHENSIVE METABOLIC [id number] 00:00:00* Test Item Value Reference Range Interpretation Comme nts GLUCOSE (test code = 2217) 97 MG/DL BUN (test code = 2208) 7 MG/DL CREATININE (test code = 2214) 0.61 MG/DL eGFR (2020 CKD-EPI) (test code = 00006) 110 ML/MIN/1.73 CALC BUN/CREAT (test code = [...] (test code = 2219) 13 U/L Henry [id number] 00:00:00* Test Item Value Reference Range Interpretation Comme nts TSH, THIRD GENERATION (test code = 2821) 11.100 UIU/ML Henry ContrerasCBC W/AUTO [id number] 00:00:00* Test Item Value Reference Range Interpretation [...] ABS NUCLEATED RBCS (test cod e = 19534) 0.00 K/UL Henry ContrerasCOMPREHENSIVE METABOLIC [id number] 00:00:00* Test Item Value Reference Range Interpretation Comme nts GLUCOSE (test code = 2217) 97 MG/DL BUN (test code = 2208) 7 MG/DL CREATININE (test code = 2214) 0.61 MG/DL eGFR (2020 CKD-EPI) (test code = 00658) 110 ML/MIN/1.73 CALC BUN/CREAT (test code = [...] (test code = 2219) 13 U/L Henry [id number] 00:00:00* Test Item Value Reference Range Interpretation Comme nts TSH, THIRD GENERATION (test code = 2821) 11.100 UIU/ML Henry ContrerasCBC W/AUTO [id number] 00:00:00* Test Item Value Reference Range Interpretation [...] ABS NUCLEATED RBCS (test cod e = 68720) 0.00 K/UL Henry ContrerasCOMPREHENSIVE METABOLIC [id number] 00:00:00* Test Item Value Reference Range Interpretation Comme nts GLUCOSE (test code = 2217) 97 MG/DL BUN (test code = 2208) 7 MG/DL CREATININE (test code = 2214) 0.61 MG/DL eGFR (2020 CKD-EPI) (test code = 46444) 110 ML/MIN/1.73 CALC BUN/CREAT (test code = [...] (test code = 2219) 13 U/L Henry [id number] 00:00:00* Test Item Value Reference Range Interpretation Comme nts TSH, THIRD GENERATION (test code = 2821) 11.100 UIU/ML Henry ContrerasCBC W/AUTO [id number] 00:00:00* Test Item Value Reference Range Interpretation [...] ABS NUCLEATED RBCS (test cod e = 84663) 0.00 K/UL Henry ContrerasCOMPREHENSIVE METABOLIC [id number] 00:00:00* Test Item Value Reference Range Interpretation Comme nts GLUCOSE (test code = 2217) 97 MG/DL BUN (test code = 2208) 7 MG/DL CREATININE (test code = 2214) 0.61 MG/DL eGFR (2020 CKD-EPI) (test code = 58743) 110 ML/MIN/1.73 CALC BUN/CREAT (test code = [...] (test code = 2219) 13 U/L Henry [id number] 01:13:06* Test Item Value Reference Range Interpretation Comme nts TRANSFERRIN (test code = 4936) 315 MG/DL 200-360 UNLESS OTHERWISE INDICATED, ALL TESTING PERFORMED AT [facility] [address] [place] [address] HOGSHEAD HEAD MATCHER: JATIN FELIPE M.D. CLIA NUMBER [id number] [facility] [place]. [id number] LIPID [id number] 01:12:48* Test Item Value Reference Range Interpretation [...] SPECIMENS. FOR MOREINFORMATION, SEE CLIENT ANNOUNCEMENT AT [email or web address] RISK RATIO LDL/HDL (test code = 2238) 1.34 RATIO <3.22 COMPREHENSIVE METABOLIC [id number] 01:12:48* Test Item Value Reference Range Interpretation Comme nts GLUCOSE (test code = 2217) 92 MG/DL 70-99 BUN (test code = 2208) 15 MG/DL 6-20 CREATININE (test code = 2214) 0.65 MG/DL 0.60-1.30 eGFR (2020 CKD-EPI) (test code = 92636) 108 ML/MIN/1.73 >60 CALC BUN/CREAT (test code [...] IRON BINDING CAPACITY AND IRON AND % [id number] 01:12:48* Test Item Value Reference Range Interpretation Comme nts IRON, SERUM (test code = 2221) 51 UG/DL 37-145 UNSATURATED IBC (test code = ) 356 UG/DL 112-347 H CALC TOTAL IBC (test code = 2076) 407 UG/DL 250-450 CALC % IRON SAT (test code = 2078) 13 % 20-50 L [id number] 00:59:24* Test Item Value Reference Range Interpretation Comme nts FERRITIN (test code = 2074) 20 NG/ML 13-200 LIPID [id number] 00:00:00* Test Item Value Reference Range Interpretation Comme nts CHOLESTEROL (test code = 2209) 191 MG/DL TRIGLYCERIDES (test code = 2) 89 MG/DL HDL CHOLESTEROL (test code = 0) 74 MG/DL CALC LDL CHOL (test code = 7) 99 MG/DL RISK RATIO LDL/HDL (test cod e = 2238) 1.34 RATIO Henry F AustinCOMPREHENSIVE METABOLIC [id number] 00:00:00* Test Item Value Reference Range Interpretation [...] AustinIRON BINDING CAPACITY AND IRON AND % [id number] 00:00:00* Test Item Value Reference Range Interpretation Comme nts IRON, SERUM (test code = 2221) 51 UG/DL UNSATURATED IBC (test code = 52645) 356 UG/DL CALC TOTAL IBC (test code = 2076) 407 UG/DL CALC % IRON SAT (test code = 2078) 13 % Henry Quiles [id number] 00:00:00* Test Item Value Reference Range Interpretation Comme nts FERRITIN (test code = 2074) 20 NG/ML Henry [id number] 00:00:00* Test Item Value Reference Range Interpretation Comme nts TRANSFERRIN (test code = 4936) 315 MG/DL Henry Quiles AustinLIPID [id number] 00:00:00* Test Item Value Reference Range Interpretation Comme nts CHOLESTEROL (test code = 2209) 191 MG/DL TRIGLYCERIDES (test code = 2) 89 MG/DL HDL CHOLESTEROL (test code = 2219) 74 MG/DL CALC LDL CHOL (test code = 2236) 99 MG/DL RISK RATIO LDL/HDL (test cod e = 2238) 1.34 RATIO Henry ContrerasCOMPREHENSIVE METABOLIC [id number] 00:00:00* Test Item Value Reference Range Interpretation [...] ContrerasIRON BINDING CAPACITY AND IRON AND % [id number] 00:00:00* Test Item Value Reference Range Interpretation Comme nts IRON, SERUM (test code = 2221) 51 UG/DL UNSATURATED IBC (test code = 00273) 356 UG/DL CALC TOTAL IBC (test code = 2076) 407 UG/DL CALC % IRON SAT (test code = 2078) 13 % Henry [id number] 00:00:00* Test Item Value Reference Range Interpretation Comme nts FERRITIN (test code = 2074) 20 NG/ML Henry Quiles [id number] 00:00:00* Test Item Value Reference Range Interpretation Comme nts TRANSFERRIN (test code = 4936) 315 MG/DL Henry ContrerasLIPID [id number] 00:00:00* Test Item Value Reference Range Interpretation Comme nts CHOLESTEROL (test code = 2210) 191 MG/DL TRIGLYCERIDES (test code = 2232) 89 MG/DL HDL CHOLESTEROL (test code = 2220) 74 MG/DL CALC LDL CHOL (test code = 2237) 99 MG/DL RISK RATIO LDL/HDL (test cod e = 2238) 1.34 RATIO Henry ContrerasCOMPREHENSIVE METABOLIC [id number] 00:00:00* Test Item Value Reference Range Interpretation Comme nts GLUCOSE (test code = 2217) 92 MG/DL BUN (test code = 2208) 15 MG/DL CREATININE (test code = 2214) 0.65 MG/DL eGFR (2020 CKD-EPI) (test code = 86211) 108 ML/MIN/1.73 CALC BUN/CREAT (test code = [...] ContrerasIRON BINDING CAPACITY AND IRON AND % [id number] 00:00:00* Test Item Value Reference Range Interpretation Comme nts IRON, SERUM (test code = 2221) 51 UG/DL UNSATURATED IBC (test code = ) 356 UG/DL CALC TOTAL IBC (test code = 2076) 407 UG/DL CALC % IRON SAT (test code = 2078) 13 % Henry [id number] 00:00:00* Test Item Value Reference Range Interpretation Comme nts FERRITIN (test code = 2074) 20 NG/ML Henry Quiles [id number] 00:00:00* Test Item Value Reference Range Interpretation Comme nts TRANSFERRIN (test code = 4936) 315 MG/DL Henry ContrerasLIPID [id number] 00:00:00* Test Item Value Reference Range Interpretation Comme nts CHOLESTEROL (test code = 2210) 191 MG/DL TRIGLYCERIDES (test code = 2232) 89 MG/DL HDL CHOLESTEROL (test code = 2220) 74 MG/DL CALC LDL CHOL (test code = 2237) 99 MG/DL RISK RATIO LDL/HDL (test cod e = 2238) 1.34 RATIO Henry ContrerasCOMPREHENSIVE METABOLIC [id number] 00:00:00* Test Item Value Reference Range Interpretation Comme nts GLUCOSE (test code = 2217) 92 MG/DL BUN (test code = 2208) 15 MG/DL CREATININE (test code = 2214) 0.65 MG/DL eGFR (2020 CKD-EPI) (test code = 76063) 108 ML/MIN/1.73 CALC BUN/CREAT (test code = [...] ContrerasIRON BINDING CAPACITY AND IRON AND % [id number] 00:00:00* Test Item Value Reference Range Interpretation Comme nts IRON, SERUM (test code = 2221) 51 UG/DL UNSATURATED IBC (test code = 56486) 356 UG/DL CALC TOTAL IBC (test code = 2076) 407 UG/DL CALC % IRON SAT (test code = 2078) 13 % Henry [id number] 00:00:00* Test Item Value Reference Range Interpretation Comme shaina FERRITIN (test code = 2075) 20 NG/ML Henry [id number] 00:00:00* Test Item Value Reference Range Interpretation Comme shaina TRANSFERRIN (test code = 4936) 315 MG/DL Henry ContrerasHEMOGLOBIN [id number] 03:08:40* Test Item Value Reference Range Interpretation Comme nts HEMOGLOBIN A1c (test code = 39913) 5.5 % 4.2-5.6 CBC W/AUTO DIFF WITH [id number] 02:29:36* Test Item Value Reference Range Interpretation [...] = 1065) 0.0 /100 WBC'S See_Comment [Automated Qivivo[employer] ge] The system which generated this result [...] 0.00-0.10 ABS NUCLEATED RBCS (test code = 08975) 0.00 K/UL 0.00-0.11 CBC W/AUTO [id number] 00:00:00* Test Item Value Reference Range Interpretation [...] ABS NUCLEATED RBCS (test cod e = 52540) 0.00 K/UL Henry F AustinHEMOGLOBIN [id number] 00:00:00* Test Item Value Reference Range Interpretation Comme nts HEMOGLOBIN A1c (test code = 59054) 5.5 % Henry Quiles AustinCBC W/AUTO [id number] 00:00:00* Test Item Value Reference Range Interpretation [...] ABS NUCLEATED RBCS (test cod e = 58658) 0.00 K/UL Henry ContrerasHEMOGLOBIN [id number] 00:00:00* Test Item Value Reference Range Interpretation Comme nts HEMOGLOBIN A1c (test code = 36517) 5.5 % Henry Quiles AustinCBC W/AUTO [id number] 00:00:00* Test Item Value Reference Range Interpretation [...] ABS NUCLEATED RBCS (test cod e = 62701) 0.00 K/UL Henry ContrerasHEMOGLOBIN [id number] 00:00:00* Test Item Value Reference Range Interpretation Comme nts HEMOGLOBIN A1c (test code = 28456) 5.5 % Henry ContrerasCBC W/AUTO [id number] 00:00:00* Test Item Value Reference Range Interpretation [...] ABS NUCLEATED RBCS (test cod e = 82190) 0.00 K/UL Henry ContrerasHEMOGLOBIN [id number] 00:00:00* Test Item Value Reference Range Interpretation Comme nts HEMOGLOBIN A1c (test code = 33343) 5.5 % Henry ContrerasDRUGS OF [id number] 05:03:00* Test Item Value Reference Range Interpretation [...] 200 ng/mL Opiates 300 ng/mL URINALYSIS WITH [id number] 04:56:00* Test Item Value Reference Range Interpretation [...] (test code = USPERM) /HPF NONE URINE [id number] 04:53:00* Test Item Value Reference Range Interpretation [...] FDA and the [employer] ([employer]) are more stringent than those required for this test. Therefore, the result should be interpreted with caution and close attention to other clinical and epidemiological data [id number] 16:00:00* Test Item Value Reference Range Interpretation Comme nts SALICYLATE (test code = 94B) <3.0 mg/dL 15.0-30.0 L LIVER [id number] 15:49:00* Test Item Value Reference Range Interpretation [...] code = 30A) 16 IU/L See_Comment [Automated [employer]ivo[employer] ge] The system which generated this result transmitted reference range: <=33. The reference range was not used to interpret this result as normal/abnormal. ALT (test code = 31A) <7 IU/L 10-49 L [id number] 15:48:00* Test Item Value Reference Range Interpretation Comme nts ACETAMINPH (test code = 94M) <0.2 mg/dL 1.2-2.5 L ALCOHOL BLOOD (ETOH)2022-11-04 15:48:00* Test Item Value Reference Range Interpretation Comme nts ETOH (test code = HALC) ETHANOL The result is to be used only for medical purposes ALCOHOL (test code = 56A) <10 mg/dL See_Comment [Automated [employer] ge] The system which generated this result transmitted reference range: <=10. The reference range was not used to interpret this result as normal/abnormal. 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 Old healed fractures of the distal tibia and fibular noted.Soft tissues: Unremarkable.IMPRESSION: No acute findings.Electronically signed by: Nikko Santiago MD 11/04/2022 3:10 PM CDT [id number] BEDSIDE [id number] 11:51:00* Test Item Value Reference Range Interpretation Comme nts GLUCOSE BEDSIDE TESTING (karen t code = GLUBED) 79 MG/DL 70-119 N GLUCOSE BEDSIDE [id number] 06:23:00* Test Item Value Reference Range Interpretation Comme nts GLUCOSE BEDSIDE TESTING (karen t code = GLUBED) 80 MG/DL 70-119 N BASIC METABOLIC [id number] 05:12:00* Test Item Value Reference Range Interpretation [...] 2.0 <2.0 indicates None DetectedPerformed At: [facility] [address] [id number] Michael Reeves MD Ph:[phone] GLUCOSE BEDSIDE [id number] 19:51:00* Test Item Value Reference Range Interpretation Comme nts GLUCOSE BEDSIDE TESTING (karen t code = GLUBED) 129 MG/DL 70-119 H OSMOLALITY [id number] 17:56:00* Test Item Value Reference Range Interpretation Comme nts OSMOLALITY SERUM (test code = OSMO) 269 mOsm/kg 275-300 L THYROID STIMULATING [id number] 17:56:00* Test Item Value Reference Range Interpretation Comme nts THYROID STIMULATING HORMONE (test code = TSH) 4.190 mc IU/ML 0.340-4.820 N GLUCOSE BEDSIDE [id number] 15:49:00* Test Item Value Reference Range Interpretation [...] code = VALP) 37.5 mcG/ML 50.0-100.0 L [id number] 14:26:00* Test Item Value Reference Range Interpretation Comme [facility] AMMONIA (test code = AMM) 29.0 mcMOL/L 11.0-32.0 N GLUCOSE BEDSIDE [id number] 11:51:00* Test Item Value Reference Range Interpretation Comme [facility] GLUCOSE BEDSIDE TESTING (karen t code = GLUBED) 88 MG/DL 70-119 N GLYCOSYLATED HEMOGLOBIN (HA1C)2022-09-18 06:53:00* Test Item Value Reference Range Interpretation Comme [facility] GLYCOSYLATED HEMOGLOBIN (HA1 C) (test code = GLYHGB) 5.2 % IS-A1C 4.5-5.6 N ESTIMATED AVERAGE [id number] 06:53:00* Test Item Value Reference Range Interpretation Comme [facility] ESTIMATED AVERAGE GLUCOSE (t est code = EAG) 103 MG/DLest LIPID PROFILE (CORONARY RISK)2022-09-18 06:53:00* Test Item Value Reference Range Interpretation Comme [facility] TRIGLYCERIDES (test code = TRIG) 83 MG/DL [...] to interpret this result as normal/abnormal. UR [id number] 21:28:00* Test Item Value Reference Range Interpretation Comme nts UR SODIUM RANDOM (test code = JESUSITA) 93 mmol/L 40-200 N UR POTASSIUM RANDOM (test code = KU) 54.8 mmol/L 25-125 N NO ESTABLISHED NORMAL RANGES FOR RANDOM SPECIMENS. UR CHLORIDE RANDOM (test code = CLU) 164 mmol/L 110-150 H UR OSMOLALITY [id number] 21:28:00* Test Item Value Reference Range Interpretation Comme nts UR OSMOLALITY RANDOM (test c ode = OSMOU) 475 mOsm/kg 100-1400 N CBC W/O [id number] 20:05:00* Test Item Value Reference Range Interpretation [...] = MPV) 9.5 fL 6.8-11.2 N LACTIC [id number] 19:35:00* Test Item Value Reference Range Interpretation Comme nts LACTIC ACID (test code = LACT) 1.0 mmol/L 0.4-2.0 N HCG SERUM [id number] 19:31:00* Test Item Value Reference Range Interpretation Comme nts HCG SERUM QUAL (test code = HCGQL) Negative SCREEN NEG - CT HEAD/BRAIN W/O [id number] 18:59:00 [facility] BHUMIKA JONES : 1975 Sex: FPatient Name: BHUMIKA JONES Unit No: [id number] EXAMS: CPT CODE: [id number] CT HEAD/BRAIN W/OCONT [address] Location: H3 CT head, conducted on 09/17/22 [...] of encephalomalacia. No positive mass-effect, midline shift, extra-axialfluid collections or intracranial hemorrhages seen. In particular, [...] Trnscrpt: 09/17/2022 (1858) t.SDR.DAS6 DENIZ Lugo NAME: ROBRET[address] PHYS: Valentina Mattson MD [place] [address] : 1975 AGE: 47 SEX: F LOC: Ginger.LEOLA PHONE #: [phone] EXAM DATE: 09/17/2022 STATUS: ADM IN FAX #: [phone] RAD #: D/C DT PAGE 1 Signed Report Patient Name: SILAS JONESPCION Unit No: [id number] EXAMS: CPT CODE: [id number] CT HEAD/BRAIN W/O CONT 61275 (Continued) Orig Print D/T: S: 09/17/2022 (190) DENIZ Lugo NAME: ROBERT[address] PHYS: Valentina [place] [address] : 1975 AGE: 47 SEX: F LOC: B.ERMED 20 PHONE #: [phone] EXAM DATE: 09/17/2022 STATUS: ADM IN FAX #: [phone] RAD #: D/C DT PAGE 2 Signed ReportURINALYSIS [id number] 16:28:00* Test Item Value Reference Range Interpretation [...] >0 /UL NONE-SQepi DRUGS OF ABUSE SCREEN [id number] 16:28:00* Test Item Value Reference Range Interpretation [...] interpret this result as normal/abnormal. TROP-I HIGH [id number] 16:26:00* Test Item Value Reference Range Interpretation [...] and URLs may vary bymethod. BASIC METABOLIC [id number] 16:25:00* Test Item Value Reference Range Interpretation [...] interpret this result as normal/abnormal. HEPATIC FUNCTION [id number] 16:25:00* Test Item Value Reference Range Interpretation [...] ode = CK) 92 Unit/L 26-192 N [id number] 16:25:00* Test Item Value Reference Range Interpretation Comme nts LIPASE (test code = LIP) 57 Unit/L 114-286 L - CT HEAD/BRAIN W/O [id number] 00:32:00 [facility] BHUMIKA JONES : 1975 Sex: F Patient Name: BHUMIKA JONES Unit No: [id number] EXAMS: CPT CODE: [id number] CT HEAD/BRAIN W/O CONT 33167 EXAM: - CT HEAD/BRAIN W/O CONT LOCATION: [...] Technologist: Terry August CTDI: DLP: Trnscrpt: 09/17/2022(31) t.SDR.MKW1 DENIZ Lugo NAME: ROBERT[address] PHYS: PATLUCHO. - Asim Jack [place] [address] : 1975 AGE: 47 SEX: F LOC: BJordenERS PHONE #: [phone] EXAM DATE: 09/16/2022 STATUS: REG ER FAX #: [phone] RAD #: D/C DT PAGE 1 Signed Report Patient Name: BHUMIKA JONES Unit No: [id number] EXAMS: CPT CODE: [id number] CTHEAD/BRAIN W/O CONT 18954 (Continued) Orig Print D/T: S: 09/17/2022 (34) DENIZ Lugo NAME: ROBERT[address] PHYS: GLORYCA.02 - Asim Jack MDRef[place], [place] [address] :1975 AGE: 47 SEX: F LOC: B.ERS PHONE #: [phone] EXAM DATE: 09/16/2022 STATUS: REG ER FAX #: [phone] RAD #: D/C DT PAGE 2 Signed ReportTROP-I HIGH [id number] 00:13:00* Test Item Value Reference Range Interpretation [...] and URLs may vary bymethod. COMPREHENSIVE METABOLIC [id number] 00:11:00* Test Item Value Reference Range Interpretation [...] interpret this result as normal/abnormal. CBC W/AUTO [id number] 23:59:00* Test Item Value Reference Range Interpretation [...] K/mm3 0.0-0.05 N - XR CHEST 1 [id number] 23:34:00 [facility] BHUMIKA JONES : 1975 Sex: F [place]: E St: PRE -- Patient Name: BHUMIKA JONES Unit No: [id number] EXAMS: CPT CODE: [id number] XR CHEST 1 V 05663 EXAMINATION: - XR CHEST 1 V CLINICAL [...] By: NadiyaJH12 Orig Print D/T: S: 09/16/2022 (183) DENIZ Lugo NAME: JONES[address] PHYS: IGNACIO.02 - Asim Jack MD, [place] [address] : 1975 AGE: 47 SEX: F LOC: B.ERS PHONE #: [phone] EXAM DATE: 09/16/2022 STATUS: PRE ER FAX #: [phone] RAD NO: DC Dt: PAGE 1 Signed ReportCARBAMAZEPINE (TEGRETOL) 2022-09-15 06:12:00* Test Item Value Reference Range Interpretation Comme nts CARBAMAZEPINE (TEGRETOL) (test code = CARB) 1.5 ug/mL 4.0-12.0 L In conjunction w ith other antiepileptic drugs Therapeutic 4.0 - 8.0 Toxicity 9.0 - 12.0 Carbamazepine alone Therapeutic 8.0 - 12.0 Detection Limit = 2.0 <2.0 indicates None DetectedPerformed At: [facility] [address] [id number] Michael Reeves MD Ph:[phone] VALPROIC ACID (DEPAKENE)2022-09-15 06:12:00* Test Item Value Reference Range Interpretation Comme nts VALPROIC ACID (DEPAKENE) (te st code = VALP) 80.6 mcG/ML 50.0-100.0 N COMPREHENSIVE METABOLIC [id number] 06:00:00* Test Item Value Reference Range Interpretation [...] interpret this result as normal/abnormal. CBC W/AUTO [id number] 05:37:00* Test Item Value Reference Range Interpretation [...] NRBC#) 0.00 K/mm3 0.0-0.05 N GLUCOSE BEDSIDE [id number] 20:03:00* Test Item Value Reference Range Interpretation Comme nts GLUCOSE BEDSIDE TESTING (karen t code = GLUBED) 117 MG/DL 70-119 N DRUGS OF ABUSE SCREEN [id number] 11:42:00* Test Item Value Reference Range Interpretation [...] result as normal/abnormal. - CT HEAD/BRAIN W/O [id number] 11:37:00 [facility] SILAS JONESPCION : 1975 Sex: F Patient Name: SILAS JONESPCION Unit No: [id number] EXAMS: CPT CODE: [id number] CT HEAD/BRAIN W/O CONT 87604 EXAMINATION: - CT HEAD/BRAIN W/O CONT COMPARISON: None HISTORY: Seizure LOCATION CODE: [id number]: CT of the Brain without contrast. Axial [...] MD; Jim Jaimes MD Dictated Date/Time: 09/14/2022 (0731) Technologist: ASUNCION CASTELLANO CTDI: DLP: Trnscrpt: 09/14/2022 (1134) t.SDR.AG38 DENIZ Lugo NAME: [facility] PHYS: Vladimir Menchaca MD [address] [place], [place] [address]VD : 1975 AGE: 47 SEX: F [place] [address] LOC: NEHA Cintron PHONE #: [phone] EXAM DATE: 09/14/2022 STATUS: ADM IN FAX #: [phone] RAD #: D/C DT PAGE 1 Signed Report Patient Name: BHUMIKA JONES Unit No: [id number] EXAMS: CPT CODE: [id number] CT HEAD/BRAIN W/O CONT 17546 (Continued) Orig Print D/T: S: 09/14/2022 (1140) [facility]ITALWiliam Lugo NAME: SILAS JONESPCION [facility]AG[facility] PHYS: Vladimir Menchaca MD [address] [place] [address] BLVD : 1975 AGE: 47 SEX: RAFI BUTT [address] [facility] NO: [id number] LOC: NEHA Cintron PHONE #: [phone] EXAM DATE: 09/14/2022 STATUS: ADM IN FAX #: [phone] RAD #: D/C DT PAGE 2 Signed [...] AVOIDED DUE TO POSSIBLE HEPARINCONTAMINATION HCG SERUM [id number] 06:51:00* Test Item Value Reference Range Interpretation [...] CK) 268 Unit/L 26-192 H CBC W/AUTO [id number] 03:43:00* Test Item Value Reference Range Interpretation [...] = NRBC#) 0.00 K/mm3 0.0-0.05 N URINALYSIS [id number] 03:41:00* Test Item Value Reference Range Interpretation [...] RARE /LPF NONE - XR CHEST 2 [id number] 02:06:00 [facility] BHUMIKA JONES : 1975 Sex: F FAX: Suleman Carvalho [phone] [place]: St: REG Patient Name: BHUMIKA JONES Unit No: [id number] EXAMS: CPT CODE: [id number] XR CHEST 2 V 59033 EXAM: - XR CHEST 2 V HISTORY: [...] D/T: S: 09/14/2022 (0209) DENIZ Lugo NAME: SILAS JONESPCION [address] [place] [address] PHYS: LUDWIGMYRA Santiago DevenSuleman [place], [place] [address] : 1975 AGE: 47 SEX: F LOC: B.ERS PHONE #: [phone] EXAM DATE: 09/14/2022 STATUS: REG ER FAX #: [phone] RAD NO: DC Dt: PAGE 1 Signed Report COMPREHENSIVE METABOLIC [id number] 12:49:00* Test Item Value Reference Range Interpretation [...] used to interpret this result as normal/abnormal. [id number] 12:49:00* Test Item Value Reference Range Interpretation Comme nts MAGNESIUM (test code = MAG) 1.7 MG/DL 1.6-2.6 N CBC W/AUTO [id number] 12:36:00* Test Item Value Reference Range Interpretation [...] RARE /LPF NONE DRUGS OF ABUSE SCREEN [id number] 00:33:00* Test Item Value Reference Range Interpretation [...] 300 ng/mL UA RFLX MICR CULT IF [id number] 00:30:00* Test Item Value Reference Range Interpretation [...] culture: Suprapubic PainSpecimen Description: CLEAN CATCHBASIC METABOLIC [id number] 00:18:00* Test Item Value Reference Range Interpretation [...] 8.9 mg/dl 8.0-10.5 N HEPATIC FUNCTION PANEL [id number] 00:18:00* Test Item Value Reference Range Interpretation [...] ALKP) 113 Units/L 50.0-136.0 N HCG SERUM [id number] 00:18:00* Test Item Value Reference Range Interpretation Comme [facility] HCG SERUM QUAL (test code = HCGQL) NEGATIVE NEGATIVE [id number] 00:18:00* Test Item Value Reference Range Interpretation Comme [facility] ALCOHOL (test code = ALC) 0.00 gm/dL 0.00-0.00 N ETHYL ALCOHOL VA LUES - INTERPRETATION: 0.050 GM/DL - NOT INTOXICATED 0.100 GM/DL - INTOXICATED 0.350-0.450 GM/DL - SEVERELY INTOXICATED 0.550 GM/DL- FATAL INTOXICATION Coronavirus 2019 nCoV [id number] 00:09:00* Test Item Value Reference Range Interpretation Comme [facility] Coronavirus 2019 nCoV Bedside (test code = [id number]) Negative NEGATIVE Negative results should be treated as presumptive and ifinconsistent with clinical signs and symptoms, or necessaryfor patient management, should be tested with an alternativemolecular assay. Negative results do not preclude CYLI-PbM-0exafiqvwo and should not be used as the sole basis forpatient management decisions. Negative results should beconsidered in the context of a patient's recent exposures,history, presence of clinical signs and symptoms consistentwith COVID-19. CBC W/AUTO [id number] 23:58:00* Test Item Value Reference Range Interpretation Comme [facility] WHITE BLOOD CELL (test code = WBC) [...] X10 3uL 0.00-0.01 N COMP. METABOLIC PANEL (25802)2022-09-07 02:12:41* Test Item Value Reference Range Interpretation Comme nts NA (test code = 5114336091) 133 mmol/L 135-145 L K (test code = 3342200309) 4.4 mmol/L 3.5-5.0 CL (test code = 2482980001) 102 mmol/L 98-108 CO2 TOTAL (test code = 6918206855) 25 mmol/L 23-31 AGAP (test code = 5039453736) 6 2-16 BUN (test code = 7953002174) 22 mg/dL 7-23 GLUCOSE (test code = 6509129564) 97 mg/dL 70-110 CREATININE (test code = 1522533359) 0.40 mg/dL 0.50-1.04 L TOTAL BILI (test code = 0325279161) 0.3 mg/dL 0.1-1.1 CALCIUM (test code = 2697154949) 8.9 mg/dL 8.6-10.6 T PROTEIN (test code = 5824223087) 7.7 g/dL 6.3-8.2 ALBUMIN (test code = 4374783338) 4.0 g/dL 3.5-5.0 ALK PHOS (test code = 7002124621) 104 U/L 34-122 ALTv (test code = 1742-6) 15 U/L 5-35 AST(SGOT) (test code = 0887639923) 22 U/L 13-40 eGFR (test code = 9446746402) 170.4 mL/min/1.73m2 HANNAH (test code = HANNAH) [...] imaging tests). Lab Interpretation (test code = 84901-1) Abnormal [facility] WITH [id number] 02:01:20* Test Item Value Reference Range Interpretation Comme nts WBC (test code = 6690-2) 6.17 See_Comment [Automated [employer]] The system which generated this result transmitted reference range: 4.30 - 11.10 10*3/?L. The reference range was not used to interpret this result as normal/abnormal. RBC (test code = 789-8) 3.73 See_Comment L [Automated [employer]] The system which generated this result transmitted [...] 32.9 g/dL 31.6-35.1 RDW-SD (test code = 26383-0) 48.1 fL 39.0-49.9 RDW-CV (test code = 788-0) 14.7 % 12.0-15.5 PLT (test code = 777-3) 272 See_Comment [Automated [employer]] The system which generated this result transmitted reference range: 166 - 358 10*3/?L. The reference range was not used to interpret this result as normal/abnormal. MPV (test code = 61642-6) 9.6 fL 9.5-12.9 NRBC/100 WBC (test code = 2947938505) 0.0 See_Comment [Automated me ssage] The system which generated this result transmitted reference range: 0.0 - 10.0 /100 WBCs. The reference range was not used to interpret this result as normal/abnormal. NRBC x10^3 (test code = 8559215014) See_Comment [Automated messa ge] The system which generated this result transmitted reference range: 10*3/?L. The reference range was not used to interpret this result as normal/abnormal. GRAN MAT (NEUT) % (test code = 770-8) 42.2 % IMM GRAN % (test code = 4806532306) 0.20 % LYMPH % (test code = 736-9) 38.2 % MONO % (test code = 5905-5) 12.6 % EOS % (test code = 713-8) 5.8 % BASO % (test code = 706-2) 1.0 % GRAN MAT x10^3(ANC) (test code = 8936310528) 2.60 10*3/uL 1.88-7.09 IMM GRAN x10^3 (test code = 3782415229) 0.00-0.06 LYMPH x10^3 (test code = 731-0) 2.36 10*3/uL 1.32-3.29 MONO x10^3 (test code = 742-7) 0.78 10*3/uL 0.33-0.92 EOS x10^3 (test code = 711-2) 0.36 10*3/uL 0.03-0.39 BASO x10^3 (test code = 704-7) 0.06 10*3/uL 0.01-0.07 Lab Interpretation (test code = 50275-3) Abnormal [facility] by RT-PCR (HIGH RISK) 2020-08-19 00:00:00* Test Item Value Reference Range Interpretation Comme nts SARS-CoV-2 INTERPRETATION (t est code = 51624) NEGATIVE SOURCE (test code = 71639) NOT SPECIFIED Henry Quiles MkebgeVTLN-ZeE-7 (COVID-19) by RT-PCR (HIGH RISK)2020-08-19 00:00:00* Test Item Value Reference Range Interpretation Comme nts SARS-CoV-2 INTERPRETATION (t est code = 92767) NEGATIVE SOURCE (test code = 15648) NOT SPECIFIED Henry Quiles FmyediUEBG-HgV-6 (COVID-19) by RT-PCR (HIGH RISK)2020-08-19 00:00:00* Test Item Value Reference Range Interpretation Comme nts SARS-CoV-2 INTERPRETATION (t est code = 68132) NEGATIVE SOURCE (test code = 37061) NOT SPECIFIED Henry Quiles OpbrdcPOJT-NxS-7 (COVID-19) by RT-PCR (HIGH RISK)2020-08-19 00:00:00* Test Item Value Reference Range Interpretation Comme nts SARS-CoV-2 INTERPRETATION (t est code = 98548) NEGATIVE SOURCE (test code = 61569) NOT SPECIFIED Henry Quiles AustinHPV HIGH RISK WITH GENOTYPE, [id number] 00:00:00* Test Item Value Reference Range Interpretation Comme nts HPV HIGH RISK INTERP (test c ode = 76802) NEGATIVE HPV 16 (test code = 64847) NEGATIVE HPV 18 (test code = 70338) NEGATIVE HPV, HR, OTHER GENOTYPES (te st code = 01396) NEGATIVE Henry ContrerasPAP TEST, THINPREP, [id number] 00:00:00* Test Item Value Reference Range Interpretation Comme nts SOURCE: (test code = 8001) Cervical/Endocervical SLIDES: (test code = 8011) 1 LMP: (test code = 8021) 06/2017 SPECIMEN ADEQUACY: (test code = 61840) (NOTE) INTERPRETATION: (test code = 23134) NILM/NO EPITH. ABNORMALITY;SEE BELOW [employer] SPECIALIST: (test code = 8101) KANA Hamlin(ASCP) IAC LOCATION: (test code = 87939) (NOTE) CPT: (test code = 8140) (NOTE) Henry Etta AustinHPV HIGH RISK WITH GENOTYPE, [id number] 00:00:00* Test Item Value Reference Range Interpretation Comme nts HPV HIGH RISK INTERP (test c ode = 01350) NEGATIVE HPV 16 (test code = 52322) NEGATIVE HPV 18 (test code = 11588) NEGATIVE HPV, HR, OTHER GENOTYPES (te st code = 58341) NEGATIVE Henry F AustinPAP TEST, THINPREP, [id number] 00:00:00* Test Item Value Reference Range Interpretation Comme nts SOURCE: (test code = 8001) Cervical/Endocervical SLIDES: (test code = 8011) 1 LMP: (test code = 8021) 06/2017 SPECIMEN ADEQUACY: (test code = 77074) (NOTE) INTERPRETATION: (test code = 30300) NILM/NO EPITH. ABNORMALITY;SEE BELOW [employer] SPECIALIST: (test code = 8101) [place], CT(ASCP) IAC LOCATION: (test code = 68731) (NOTE) CPT: (test code = 8140) (NOTE) Henry F AustinHPV HIGH RISK WITH GENOTYPE, [id number] 00:00:00* Test Item Value Reference Range Interpretation Comme nts HPV HIGH RISK INTERP (test c ode = 77085) NEGATIVE HPV 16 (test code = 58134) NEGATIVE HPV 18 (test code = 53981) NEGATIVE HPV, HR, OTHER GENOTYPES (te st code = 71638) NEGATIVE Henry Quiles AustinPAP TEST, THINPREP, [id number] 00:00:00* Test Item Value Reference Range Interpretation Comme nts SOURCE: (test code = 8001) Cervical/Endocervical SLIDES: (test code = 8011) 1 LMP: (test code = 8021) 06/2017 SPECIMEN ADEQUACY: (test code = 92687) (NOTE) INTERPRETATION: (test code = 08234) NILM/NO EPITH. ABNORMALITY;SEE BELOW [employer] SPECIALIST: (test code = 8101) [place], [place](ASCP) IAC LOCATION: (test code = 03486) (NOTE) CPT: (test code = 8140) (NOTE) Henry F AustinHPV HIGH RISK WITH GENOTYPE, [id number] 00:00:00* Test Item Value Reference Range Interpretation Comme nts HPV HIGH RISK INTERP (test c ode = 52100) NEGATIVE HPV 16 (test code = 80757) NEGATIVE HPV 18 (test code = 92397) NEGATIVE HPV, HR, OTHER GENOTYPES (te st code = 72965) NEGATIVE Henry F AustinPAP TEST, THINPREP, [id number] 00:00:00* Test Item Value Reference Range Interpretation Comme nts SOURCE: (test code = 8001) Cervical/Endocervical SLIDES: (test code = 8011) 1 LMP: (test code = 8021) 06/2017 SPECIMEN ADEQUACY: (test code = 90365) (NOTE) INTERPRETATION: (test code = 46486) NILM/NO EPITH. ABNORMALITY;SEE BELOW [employer] SPECIALIST: (test code = 8101) Rajanikp Wen,CT(ASCP) IAC LOCATION: (test code = 25474) (NOTE) CPT: (test code = 8140) (NOTE) Henry Quiles AustinCT HEAD WO [id number] 22:34:12Impression: 1. ?No acute intracranial process. 2. [...] he patient. Please correlate with history and physicalexamination.[facility] CERVICAL SPINE 2 [id number] 22:29:40No acute osseous abnormality. Preliminary Report Dictated [...] reviewed this study and agree with theabove report.[facility] SoutheastCBC WITH ACYLOUMABXSP8648-22-09 21:46:00* Test Item Value Reference Range Interpretation Comme nts WBC (test code = 6690-2) See_Comment [Automated [employer]] The system which generated this result transmitted reference range: 4.30 - 11.10 10*3/?L. The reference range was not used to interpret this result as normal/abnormal. RBC (test code = 789-8) See_Comment L [Automated [employer] ge] The system which generated this result [...] 32.2 g/dL 31.6-35.1 RDW-SD (test code = 21104-3) 45.1 fL 39-49.9 RDW-CV (test code = 788-0) 14.6 % 12-15.5 PLT (test code = 777-3) See_Comment L [Automated messa ge] The system which generated this result transmitted reference range: 166 - 358 10*3/?L. The reference range was not used to interpret this result as normal/abnormal. MPV (test code = 78469-0) 9.0 fL 9.5-12.9 L NRBC/100 WBC (test code = 2980385217) See_Comment [Automated me ssage] The system which generated this result transmitted reference range: 0.0 - 10.0 /100 WBCs. The reference range was not used to interpret this result as normal/abnormal. NRBC x10^3 (test code = 3439540675) <0.01 See_Comment [Automated messa ge] The system which generated this result transmitted reference range: 10*3/?L. The reference range was not used to interpret this result as normal/abnormal. GRAN MAT (NEUT) % (test code = 770-8) 51.3 % IMM GRAN % (test code = 2172376821) 0.40 % LYMPH % (test code = 736-9) 24.4 % MONO % (test code = 5905-5) 23.1 % EOS % (test code = 713-8) 0.4 % BASO % (test code = 706-2) 0.4 % GRAN MAT x10^3(ANC) (test code = 9290260470) 2.48 10*3/uL 1.88-7.09 IMM GRAN x10^3 (test code = 0779636347) <0.03 0-0.06 LYMPH x10^3 (test code = 731-0) 1.18 10*3/uL 1.32-3.29 L MONO x10^3 (test code = 742-7) 1.12 10*3/uL 0.33-0.92 H EOS x10^3 (test code = 711-2) <0.03 0.03-0.39 L BASO x10^3 (test code = 704-7) <0.03 0.01-0.07 Lab Interpretation (test code = 24924-1) [facility]normal [facility] 2 [id number] 03:28:03No acute osseous abnormality. Preliminary Report Dictated [...] agree withthe above report. [facility] [id number] 08:03:22* Test Item Value Reference Range Interpretation Comme nts Valproic Acid Level (test co de = Valproic Acid Level) 57.6 ug/mL(g) 50.0-100.0 Hemoglobin [id number] 09:36:00* Test Item Value Reference Range Interpretation Comme nts Hemoglobin A1c (test code = Hemoglobin A1c) 5.0 % 4.8-5.9 Non Diabetic 4.8-5.9%Diabetic <7.0% CT Shoulder w/o Contrast [id number] 16:49:13Patient: BHUMIKA JONES Date/Time01/09/2019 16:14 CDTReason for [...] Adam FSigned (Electronic Signature): 01/09/2019 4:49 pmRPR [id number] 21:33:20* Test Item Value Reference Range Interpretation [...] 04-23-2020 N XR Shoulder Complete 2+ Views [id number] 15:41:25Patient: BHUMIKA JONES Date/Time01/07/2019 15:25 CDTReason for [...] CSigned (Electronic Signature): 01/07/2019 3:41 pmThyroid Stimulating [id number] 03:07:04* Test Item Value Reference Range Interpretation Comme nts TSH (test code = TSH) 9.650 mIU/mL 0.270-4.200 H Lipid [id number] 03:07:03* Test Item Value Reference Range Interpretation Comme nts Cholesterol Total (test code = Cholesterol Total) 199 mg/dL 0-200 RISK OF HEART DISEASEPublished by [place] [employer] Analyte Optimal [...] is LDL/HDL Ratio=LDL Calc/HDL Chol HCG Qualitative [id number] 02:33:13* Test Item Value Reference Range Interpretation Comme nts HCG, Serum Qual (test code = HCG, Serum Qual) Negative Lot # (test code = Lot #) [id number] N Expiration Dt (test code = Expiration Dt) 2020-04-23 N Neg Control (test code = Neg Control) Negative Pos Control (test code = Pos Control) Positive Internal QC (test code = Int ernal QC) Acceptable Drugs of Abuse Urine [id number] 18:58:11* Test Item Value Reference Range Interpretation [...] = Cannabinoid Screen Ur) Negative Negative Alcohol [id number] 18:47:34* Test Item Value Reference Range Interpretation Comme nts Ethanol Level (test code = Ethanol Level) <0.00 g/dL 0.00-0.01 Intoxicated 0.08 0 g/dL or more Ethanol Inst (test code = Ethanol Inst) <0 N Comprehensive Metabolic [id number] 18:47:33* Test Item Value Reference Range Interpretation [...] A/G Ratio) 1.0 ratio N Comprehensive Metabolic [id number] 18:47:33* Test Item Value Reference Range Interpretation [...] the National Kidney Foundation, http://nkdep.nih.gov Comprehensive Metabolic [id number] 18:47:33* Test Item Value Reference Range Interpretation [...] Kidney Foundation, http://nkdep.nih.gov Complete Blood Count with Jjwirwxmqdzt0321-92-03 18:15:23* Test Item Value Reference Range Interpretation [...] code = IPF) 0 % N Automated Gvmyiiayssax7205-53-40 18:15:23* Test Item Value Reference Range Interpretation Comme nts Neutro Auto (test code = Sunny tro Auto) 42.1 % 36.0-70.0 Lymph Auto (test code = Lymph Auto) 40.0 % 12.0-44.0 Glades Auto (test code = Glades Auto) 12.2 % 0.0-11.0 H Eos, Auto (test code = Eos, Auto) 4.9 % 0.0-7.0 Basophil Auto (test code = B asophil Auto) 0.6 % 0.0-2.0 Neutro Absolute (test code = Neutro Absolute) 2.2 x10 1.6-7.4 Lymph Absolute (test code = Lymph Absolute) 2.06 x10 .50-4.60 Glades Absolute (test code = M richa Absolute) .63 x10 .00-1.20 Eos Absolute (test code = Eo s Absolute) 0.25 x10 0.00-0.74 Baso Absolute (test code = B aso Absolute) 0.03 x10 0.00-0.21 IG [id number] 18:15:23* Test Item Value Reference Range Interpretation Comme nts IG (test code = IG) 0.2 % 0.0-5.0 IG Abs (test code = IG Abs) 0 x10 N VALPROIC [id number] 00:00:00* Test Item Value Reference Range Interpretation Comme nts VALPROIC ACID (test code = 3025) 69.8 UG/ML Henry Quiles AustinVALPROIC [id number] 00:00:00* Test Item Value Reference Range Interpretation Comme nts VALPROIC ACID (test code = 3025) 69.8 UG/ML Henry Quiles AustinVALPROIC [id number] 00:00:00* Test Item Value Reference Range Interpretation Comme nts VALPROIC ACID (test code = 3025) 69.8 UG/ML Henry Quiles AustinVALPROIC [id number] 00:00:00* Test Item Value Reference Range Interpretation Comme nts VALPROIC ACID (test code = 3025) 69.8 UG/ML Henry Quiles AustinURINE CULTURE, NO [id number] 00:00:00* Test Item Value Reference Range Interpretation Comme nts URINE CULTURE, NO SENS (test code = 15236) SPECIMEN NUMBER: [id number] Henry Quiles AustinURINE CULTURE, NO [id number] 00:00:00* Test Item Value Reference Range Interpretation Comme nts URINE CULTURE, NO SENS (test code = 59135) SPECIMEN NUMBER: [id number] Henry Quiles AustinURINE CULTURE, NO [id number] 00:00:00* Test Item Value Reference Range Interpretation Comme nts URINE CULTURE, NO SENS (test code = 67982) SPECIMEN NUMBER: [id number] Henry Quiles AustinURINE CULTURE, NO [id number] 00:00:00* Test Item Value Reference Range Interpretation Comme nts URINE CULTURE, NO SENS (test code = 24930) SPECIMEN NUMBER: [id number] Henry Quiles AustinIRON BINDING CAPACITY AND IRON AND % [id number] 00:00:00* Test Item Value Reference Range Interpretation Comme nts IRON, SERUM (test code = 2222) 42 UG/DL UNSATURATED IBC (test code = 31952) 279 UG/DL CALC TOTAL IBC (test code = 2077) 321 UG/DL CALC % IRON SAT (test code = 2079) 13 % Henry Quiles [id number] 00:00:00* Test Item Value Reference Range Interpretation Comme nts FERRITIN (test code = 2075) 15 NG/ML Henry Quiles [id number] 00:00:00* Test Item Value Reference Range Interpretation Comme nts TRANSFERRIN (test code = 4936) 269 MG/DL Henry F AustinFOLIC [id number] 00:00:00* Test Item Value Reference Range Interpretation Comme nts FOLIC ACID (test code = 2695) 5.4 UG/L Henry F AustinIRON BINDING CAPACITY AND IRON AND % [id number] 00:00:00* Test Item Value Reference Range Interpretation Comme nts IRON, SERUM (test code = 2222) 42 UG/DL UNSATURATED IBC (test code = 77989) 279 UG/DL CALC TOTAL IBC (test code = 7) 321 UG/DL CALC % IRON SAT (test code = 9) 13 % Henry F [id number] 00:00:00* Test Item Value Reference Range Interpretation Comme nts FERRITIN (test code = 2075) 15 NG/ML Henry F [id number] 00:00:00* Test Item Value Reference Range Interpretation Comme nts TRANSFERRIN (test code = 4936) 269 MG/DL Henry F AustinFOLIC [id number] 00:00:00* Test Item Value Reference Range Interpretation Comme nts FOLIC ACID (test code = 2695) 5.4 UG/L Henry F AustinIRON BINDING CAPACITY AND IRON AND % [id number] 00:00:00* Test Item Value Reference Range Interpretation Comme nts IRON, SERUM (test code = 2222) 42 UG/DL UNSATURATED IBC (test code = 84686) 279 UG/DL CALC TOTAL IBC (test code = 2077) 321 UG/DL CALC % IRON SAT (test code = 2079) 13 % Henry F [id number] 00:00:00* Test Item Value Reference Range Interpretation Comme nts FERRITIN (test code = 2075) 15 NG/ML Henry F [id number] 00:00:00* Test Item Value Reference Range Interpretation Comme nts TRANSFERRIN (test code = 4936) 269 MG/DL Henry F AustinFOLIC [id number] 00:00:00* Test Item Value Reference Range Interpretation Comme nts FOLIC ACID (test code = 2695) 5.4 UG/L Henry F AustinIRON BINDING CAPACITY AND IRON AND % [id number] 00:00:00* Test Item Value Reference Range Interpretation Comme nts IRON, SERUM (test code = 2222) 42 UG/DL UNSATURATED IBC (test code = 93364) 279 UG/DL CALC TOTAL IBC (test code = 2077) 321 UG/DL CALC % IRON SAT (test code = 2079) 13 % Henry Quiles [id number] 00:00:00* Test Item Value Reference Range Interpretation Comme nts FERRITIN (test code = 2075) 15 NG/ML Henry Quiles [id number] 00:00:00* Test Item Value Reference Range Interpretation Comme nts TRANSFERRIN (test code = 4936) 269 MG/DL Henry Quiles AustinFOLIC [id number] 00:00:00* Test Item Value Reference Range Interpretation Comme nts FOLIC ACID (test code = 2695) 5.4 UG/L Henry ContrerasCULTURE, URINE [ADDED]2018-06-12 00:00:00* Test Item Value Reference Range Interpretation Comme nts CULTURE, URINE (test code = 99362) SPECIMEN NUMBER: [id number] Henry Quiles AustinCULTURE, URINE [ADDED]2018-06-12 00:00:00* Test Item Value Reference Range Interpretation Comme nts CULTURE, URINE (test code = 10998) SPECIMEN NUMBER: [id number] Henry Quiles AustinCULTURE, URINE [ADDED]2018-06-12 00:00:00* Test Item Value Reference Range Interpretation Comme nts CULTURE, URINE (test code = 75245) SPECIMEN NUMBER: [id number] Henry Quiles AustinCULTURE, URINE [ADDED]2018-06-12 00:00:00* Test Item Value Reference Range Interpretation Comme nts CULTURE, URINE (test code = 25970) SPECIMEN NUMBER: [id number] Henry Quiles AustinCBC W/AUTO [id number] 00:00:00* Test Item Value Reference Range Interpretation [...] (test code = 1015) 184 K/UL Henry F BenCOMPREHENSIVE METABOLIC [id number] 00:00:00* Test Item Value Reference Range Interpretation Comme nts GLUCOSE (test code = 2217) 86 MG/DL BUN (test code = 2208) 16 MG/DL CREATININE (test code = 2214) 0.45 MG/DL eGFR AMER. (test cod e = 36956) 141 ML/MIN/1.73 eGFR NON- AMER. (test code = 89525) 122 ML/MIN/1.73 CALC BUN/CREAT (test code = [...] code = 2219) 17 U/L Henry ContrerasVALPROIC [id number] 00:00:00* Test Item Value Reference Range Interpretation Comme nts VALPROIC ACID (test code = 3025) 100.9 UG/ML Henry ContrerasCBC W/AUTO [id number] 00:00:00* Test Item Value Reference Range Interpretation [...] = 1015) 184 K/UL Henry ContrerasCOMPREHENSIVE METABOLIC [id number] 00:00:00* Test Item Value Reference Range Interpretation Comme nts GLUCOSE (test code = 2217) 86 MG/DL BUN (test code = 2208) 16 MG/DL CREATININE (test code = 2214) 0.45 MG/DL eGFR AMER. (test cod e = 30198) 141 ML/MIN/1.73 eGFR NON- AMER. (test code = 46155) 122 ML/MIN/1.73 CALC BUN/CREAT (test code = [...] code = 2219) 17 U/L Henry ContrerasVALPROIC [id number] 00:00:00* Test Item Value Reference Range Interpretation Comme nts VALPROIC ACID (test code = 3025) 100.9 UG/ML Henry ContrerasCBC W/AUTO [id number] 00:00:00* Test Item Value Reference Range Interpretation [...] 1015) 184 K/UL Henry Quiles BenCOMPREHENSIVE METABOLIC [id number] 00:00:00* Test Item Value Reference Range Interpretation Comme nts GLUCOSE (test code = 2217) 86 MG/DL BUN (test code = 2208) 16 MG/DL CREATININE (test code = 2214) 0.45 MG/DL eGFR AMER. (test cod e = 45205) 141 ML/MIN/1.73 eGFR NON- AMER. (test code = 71360) 122 ML/MIN/1.73 CALC BUN/CREAT (test code = [...] code = 2219) 17 U/L Henry ContrerasVALPROIC [id number] 00:00:00* Test Item Value Reference Range Interpretation Comme nts VALPROIC ACID (test code = 3025) 100.9 UG/ML Henry ContrerasCBC W/AUTO [id number] 00:00:00* Test Item Value Reference Range Interpretation [...] = 1015) 184 K/UL Henry ContrerasCOMPREHENSIVE METABOLIC [id number] 00:00:00* Test Item Value Reference Range Interpretation Comme nts GLUCOSE (test code = 2217) 86 MG/DL BUN (test code = 2208) 16 MG/DL CREATININE (test code = 2214) 0.45 MG/DL eGFR AMER. (test cod e = 25493) 141 ML/MIN/1.73 eGFR NON- AMER. (test code = 66689) 122 ML/MIN/1.73 CALC BUN/CREAT (test code = [...] code = 2219) 17 U/L Henry ContrerasVALPROIC [id number] 00:00:00* Test Item Value Reference Range Interpretation Comme nts VALPROIC ACID (test code = 3025) 100.9 UG/ML Henry ContrerasPAP TEST, THINPREP, [id number] 00:00:00* Test Item Value Reference Range Interpretation Comme nts SOURCE: (test code = 8001) Cervical/Endocervical SLIDES: (test code = 8011) 1 LMP: (test code = 8021) 03/2017 SPECIMEN ADEQUACY: (test code = 20519) (NOTE) INTERPRETATION: (test code = 80565) NO EPITHELIAL ABNORMALITY SEE BELOW [employer] SPECIALIST: (test code = 8101) KANA Merida(ASCP)IAC LOCATION: (test code = 08603) (NOTE) CPT: (test code = 8140) (NOTE) Henry ContrerasHPV HIGH RISK WITH GENOTYPE, [id number] 00:00:00* Test Item Value Reference Range Interpretation Comme nts HPV HIGH RISK INTERP (test c ode = 75646) NEGATIVE HPV 16 (test code = 00946) NEGATIVE HPV 18 (test code = 35977) NEGATIVE HPV, HR, OTHER GENOTYPES (te st code = 97090) NEGATIVE Henry Quiles BenPAP TEST, THINPREP, [id number] 00:00:00* Test Item Value Reference Range Interpretation Comme nts SOURCE: (test code = 8001) Cervical/Endocervical SLIDES: (test code = 8011) 1 LMP: (test code = 8021) 03/2017 SPECIMEN ADEQUACY: (test code = 10032) (NOTE) INTERPRETATION: (test code = 07979) NO EPITHELIAL ABNORMALITY SEE BELOW MARINE CAR[employer] SPECIALIST: (test code = 8101) KANA Merida(ASCP)IAC LOCATION: (test code = 68363) (NOTE) CPT: (test code = 8140) (NOTE) Henry Quiles AustinHPV HIGH RISK WITH GENOTYPE, [id number] 00:00:00* Test Item Value Reference Range Interpretation Comme nts HPV HIGH RISK INTERP (test c ode = 43064) NEGATIVE HPV 16 (test code = 27396) NEGATIVE HPV 18 (test code = 86140) NEGATIVE HPV, HR, OTHER GENOTYPES (te st code = 40014) NEGATIVE Henry ContrerasPAP TEST, THINPREP, [id number] 00:00:00* Test Item Value Reference Range Interpretation Comme nts SOURCE: (test code = 8001) Cervical/Endocervical SLIDES: (test code = 8011) 1 LMP: (test code = 8021) 03/2017 SPECIMEN ADEQUACY: (test code = 04131) (NOTE) INTERPRETATION: (test code = 53221) NO EPITHELIAL ABNORMALITY SEE BELOW MARINE [employer] SPECIALIST: (test code = 8101) KANA Merida(ASCP)IAC LOCATION: (test code = 76772) (NOTE) CPT: (test code = 8140) (NOTE) Henry Quiles AustinHPV HIGH RISK WITH GENOTYPE, [id number] 00:00:00* Test Item Value Reference Range Interpretation Comme nts HPV HIGH RISK INTERP (test c ode = 70652) NEGATIVE HPV 16 (test code = 18554) NEGATIVE HPV 18 (test code = 33849) NEGATIVE HPV, HR, OTHER GENOTYPES (te st code = 07002) NEGATIVE Henry ContrerasPAP TEST, THINPREP, [id number] 00:00:00* Test Item Value Reference Range Interpretation Comme nts SOURCE: (test code = 8001) Cervical/Endocervical SLIDES: (test code = 8011) 1 LMP: (test code = 8021) 03/2017 SPECIMEN ADEQUACY: (test code = 71448) (NOTE) INTERPRETATION: (test code = 20647) NO EPITHELIAL ABNORMALITY SEE BELOW [employer]INE [employer] SPECIALIST: (test code = 8101) KANA Merida(ASCP)IAC LOCATION: (test code = 27937) (NOTE) CPT: (test code = 8140) (NOTE) Henry F AustinHPV HIGH RISK WITH GENOTYPE, [id number] 00:00:00* Test Item Value Reference Range Interpretation Comme nts HPV HIGH RISK INTERP (test c ode = 25172) NEGATIVE HPV 16 (test code = 79082) NEGATIVE HPV 18 (test code = 65404) NEGATIVE HPV, HR, OTHER GENOTYPES (te st code = 79144) NEGATIVE Henry Quiles AustinHIV AB/AG COMBO RFLX [id number] 00:00:00* Test Item Value Reference Range Interpretation Comme nts HIV 1/2 4TH GEN, RFLX CONF ( test code = 3514) NON-REACTIVE Henry F AustinGC AND CHLAMYDIA AMPLIFIED, [id number] 00:00:00* Test Item Value Reference Range Interpretation Comme nts GONORRHEA, TMA (test code = 54208) NEGATIVE CHLAMYDIA, TMA (test code = 75223) NEGATIVE Henry F AustinGC AND CHLAMYDIA AMPLIFIED, [id number] 00:00:00* Test Item Value Reference Range Interpretation Comme nts GONORRHEA, TMA (test code = 13776) NEGATIVE CHLAMYDIA, TMA (test code = 61736) NEGATIVE Henry F AustinHIV AB/AG COMBO RFLX [id number] 00:00:00* Test Item Value Reference Range Interpretation Comme nts HIV 1/2 4TH GEN, RFLX CONF ( test code = 3514) NON-REACTIVE Henry F AustinHIV AB/AG COMBO RFLX [id number] 00:00:00* Test Item Value Reference Range Interpretation Comme nts HIV 1/2 4TH GEN, RFLX CONF ( test code = 3514) NON-REACTIVE Henry F AustinGC AND CHLAMYDIA AMPLIFIED, [id number] 00:00:00* Test Item Value Reference Range Interpretation Comme nts GONORRHEA, TMA (test code = 39719) NEGATIVE CHLAMYDIA, TMA (test code = 99031) NEGATIVE Henry F AustinGC AND CHLAMYDIA AMPLIFIED, [id number] 00:00:00* Test Item Value Reference Range Interpretation Comme nts GONORRHEA, TMA (test code = 99554) NEGATIVE CHLAMYDIA, TMA (test code = 87562) NEGATIVE Henry F AustinHIV AB/AG COMBO RFLX [id number] 00:00:00* Test Item Value Reference Range Interpretation Comme shaina HIV 1/2 4TH GEN, RFLX CONF ( test code = 3514) NON-REACTIVE Henry ContrerasLIPID [id number] 00:00:00* Test Item Value Reference Range Interpretation Comme nts CHOLESTEROL (test code = 2210) 186 MG/DL TRIGLYCERIDES (test code = 2232) 131 MG/DL HDL CHOLESTEROL (test code = 2220) 67 MG/DL CALC LDL CHOL (test code = 2237) 93 MG/DL RISK RATIO LDL/HDL (test cod e = 2238) 1.39 RATIO Henry ContrerasCBC W/AUTO [id number] 00:00:00* Test Item Value Reference Range Interpretation [...] code = 1015) 152 K/UL Henry ContrerasHEMOGLOBIN [id number] 00:00:00* Test Item Value Reference Range Interpretation Comme shaina HEMOGLOBIN A1c (test code = 44102) 5.2 % Henry [id number] 00:00:00* Test Item Value Reference Range Interpretation Comme nts TSH (test code = 2821) 2.020 UIU/ML Henry ContrerasCOMPREHENSIVE METABOLIC [id number] 00:00:00* Test Item Value Reference Range Interpretation Comme nts GLUCOSE (test code = 2217) 90 MG/DL BUN (test code = 2208) 21 MG/DL CREATININE (test code = 2214) 0.42 MG/DL eGFR AMER. (test cod e = 37383) 145 ML/MIN/1.73 eGFR NON- AMER. (test code = 57272) 126 ML/MIN/1.73 CALC BUN/CREAT (test code = [...] code = 2219) <5 U/L Henry ContrerasLIPID [id number] 00:00:00* Test Item Value Reference Range Interpretation Comme nts CHOLESTEROL (test code = 2210) 186 MG/DL TRIGLYCERIDES (test code = 2232) 131 MG/DL HDL CHOLESTEROL (test code = 2220) 67 MG/DL CALC LDL CHOL (test code = 2237) 93 MG/DL RISK RATIO LDL/HDL (test cod e = 2238) 1.39 RATIO Henry ContrerasCBC W/AUTO [id number] 00:00:00* Test Item Value Reference Range Interpretation [...] code = 1015) 152 K/UL Henry ContrerasHEMOGLOBIN [id number] 00:00:00* Test Item Value Reference Range Interpretation Comme shaina HEMOGLOBIN A1c (test code = 64353) 5.2 % Henry [id number] 00:00:00* Test Item Value Reference Range Interpretation Comme nts TSH (test code = 2821) 2.020 UIU/ML Henry ContrerasCOMPREHENSIVE METABOLIC [id number] 00:00:00* Test Item Value Reference Range Interpretation Comme nts GLUCOSE (test code = 2217) 90 MG/DL BUN (test code = 2208) 21 MG/DL CREATININE (test code = 2214) 0.42 MG/DL eGFR AMER. (test cod e = 21665) 145 ML/MIN/1.73 eGFR NON- AMER. (test code = 66709) 126 ML/MIN/1.73 CALC BUN/CREAT (test code = [...] code = 2219) <5 U/L Henry ContrerasLIPID [id number] 00:00:00* Test Item Value Reference Range Interpretation Comme nts CHOLESTEROL (test code = 2210) 186 MG/DL TRIGLYCERIDES (test code = 2232) 131 MG/DL HDL CHOLESTEROL (test code = 2220) 67 MG/DL CALC LDL CHOL (test code = 2237) 93 MG/DL RISK RATIO LDL/HDL (test cod e = 2238) 1.39 RATIO Henry ContrerasCBC W/AUTO [id number] 00:00:00* Test Item Value Reference Range Interpretation [...] code = 1015) 152 K/UL Henry ContrerasHEMOGLOBIN [id number] 00:00:00* Test Item Value Reference Range Interpretation Comme shaina HEMOGLOBIN A1c (test code = 72671) 5.2 % Henry [id number] 00:00:00* Test Item Value Reference Range Interpretation Comme nts TSH (test code = 2821) 2.020 UIU/ML Henry ContrerasCOMPREHENSIVE METABOLIC [id number] 00:00:00* Test Item Value Reference Range Interpretation Comme nts GLUCOSE (test code = 2217) 90 MG/DL BUN (test code = 2208) 21 MG/DL CREATININE (test code = 2214) 0.42 MG/DL eGFR AMER. (test cod e = 96821) 145 ML/MIN/1.73 eGFR NON- AMER. (test code = 25051) 126 ML/MIN/1.73 CALC BUN/CREAT (test code = [...] code = 2219) <5 U/L Henry ContrerasLIPID [id number] 00:00:00* Test Item Value Reference Range Interpretation Comme nts CHOLESTEROL (test code = 2210) 186 MG/DL TRIGLYCERIDES (test code = 2232) 131 MG/DL HDL CHOLESTEROL (test code = 2220) 67 MG/DL CALC LDL CHOL (test code = 2237) 93 MG/DL RISK RATIO LDL/HDL (test cod e = 2238) 1.39 RATIO Henry ContrerasCBC W/AUTO [id number] 00:00:00* Test Item Value Reference Range Interpretation [...] code = 1015) 152 K/UL Henry ContrerasHEMOGLOBIN [id number] 00:00:00* Test Item Value Reference Range Interpretation Comme nts HEMOGLOBIN A1c (test code = 07971) 5.2 % Henry [id number] 00:00:00* Test Item Value Reference Range Interpretation Comme nts TSH (test code = 2821) 2.020 UIU/ML Henry Quiles BenCOMPREHENSIVE METABOLIC [id number] 00:00:00* Test Item Value Reference Range Interpretation Comme nts GLUCOSE (test code = 2217) 90 MG/DL BUN (test code = 2208) 21 MG/DL CREATININE (test code = 2214) 0.42 MG/DL eGFR AMER. (test cod e = 57134) 145 ML/MIN/1.73 eGFR NON- AMER. (test code = 97910) 126 ML/MIN/1.73 CALC BUN/CREAT (test code = [...] Contreras Notes Date/Time Note Provider Source Henry QuilesJorden [facility]2024-09-02 00:00:00 Henry QuilesJorden [facility]2024-06-04 04:23:47 PATIENT OPEN ORDERS Code System Description Frequency Occurrences Priority [place] [id number] [facility] EK study ONE TIME 0 Stat November 24, 2023 12:29:00 AM [facility] MAGALIE [id number] on November 24, 2023 12:29:00 AM [facility] SCHEDULED PROCEDURES Code System Description Status Scheduled Date Updated By Patient scheduled procedure information is not available. 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 conductor Role on Team Status Start Date End Date Update d By NO PCP Referring normal November 24, 2023 2:17:11 AM [facility] November 25, 2023 12:04:00 AM [facility] [id number] on November 24, 2023 2:17:11 AM [facility] MAGALIE BRAVO Attending normal November 24, 2023 2:17:11 AM UTC November 25, 2023 12:04:00 AM UTC [id number] on November 24, 2023 2:17:11 AM [facility] MAGALIE BRAVO Admitting normal November 24, 2023 2:17:11 AM UTC November 25, 2023 12:04:00 AM UTC [id number] on November 24, 2023 2:17:11 AM UTC NO PCP PCP normal November 24, 2023 2:17:11 AM UTC November 25, 2023 12:04:00 AM UTC [id number] on November 24, 2023 2:17:11 AM [facility]2024-06-03 00:00[facility]13 PATIENT OPEN ORDERS Code System Description Frequency Occurrences Priority Start [place] [id number] [facility] EKG study ONE TIME 0 Stat November 24, 2023 12:29:00 AM [facility] MAGALIE BRAVO [id number] on November 24, 2023 12:29:00 AM [facility] SCHEDULED PROCEDURES Code System Description Status Scheduled Date Updated By Patient scheduled procedure information is not available. 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 Role on Team Status Start Date End Date Update d By NO PCP Referring normal November 24, 2023 2:17:11 AM UTC November 25, 2023 12:04:00 AM UTC [id number] on November 24, 2023 2:17:11 AM [facility] MAGALIE BRAVO Attending normal November 24, 2023 2:17:11 AM UTC November 25, 2023 12:04:00 AM UTC [id number] on November 24, 2023 2:17:11 AM [facility] MAGALIE BRAVO Admitting normal November 24, 2023 2:17:11 AM UTC November 25, 2023 12:04:00 AM UTC [id number] on November 24, 2023 2:17:11 AM UTC NO PCP PCP normal November 24, 2023 2:17:11 AM UTC November 25, 2023 12:04:00 AM UTC [id number] on November 24, 2023 2:17:11 AM [facility]2024-06-01 21:59:03[place] [address] DIAGNOSTIC IMAGING REPORT Patient Name: ROBERT, CONCEPTION Date of Service: 11-23-2023 Age: 48 Sex: F Order #: [id number] Room: [facility] : 1975 X-Ray Number: [id number] Hospital Number: [id number] Admitting Physician: LAWRENCE MEJIAS Ordering Physician: LAWRENCE [...] authenticated by ANGIE PHAM 2023-11-23 21:59:03MALA ADAMS [id number] 21:53:03[place] [address] DIAGNOSTIC IMAGING REPORT Patient Name: ROBERT, CONCEPTION Date of Service: 11-23-2023 Age: 48 Sex: F Order #: [id number] Room: [facility] : 1975 X-Ray Number: [id number] Hospital Number: [id number] Admitting Physician: LAWRENCE MEJIAS Ordering Physician: LAWRENCE [...] 2023-11-23 21:53:03ALON DEL RIO 2023-10-25 00:00:00 Henry QuilesJorden [facility]2024-04-10 09:45:21 We are unable to release any pt information with out prior pt permission. However, Risperdal is not generally managed by neurology and would be best managed by psychiatrist. Robyn Durham [facility]2024-04-09 16:15:28 Copied from [facility] #[id number]. Topic: Clinical - Order >> Oct 01, 2023 4:13 PM Patient Stockfeed Miller wrote: [facility] is calling regarding medication risperdal they were givng her 3mg and stating had dropped it to 1mg trying to confirm change Call [phone] [facility]Fair[facility] [id number] 12:29:00 [facility] ([facility]) Hospitalist Discharge Summary REPORT#:[id number] REPORT STATUS: Signed DATE:10/11/22 TIME: 1229 PATIENT: BHUMIKA JONES UNIT #: [id number] ROOM/BED: [place] [address] : 74 AGE: 47 SEX: F ATTEND: [...] patient this morning with the help of feather curling machine operator and she said that he lives [...] refill, normal range of motion, no edema Neuro/AS400 DEVELOPER: altered mental status, alert Discharge Instructions PCP Discharge to: Home/Self Care Additional Discharge Routines: PCP Follow-Up Diet: Resume Home Diet/Feeds Activity: As Tolerated Follow-up Appointments PCP follow-up: PCP: No Primary or Family Physician PCP follow up timeframe: In 6 days at 1230 [facility] #:[id number] END OF [id number] 17:27:00 [facility] ([facility]) Electroencephalogram-EEG REPORT#:[id number] REPORT STATUS: Signed DATE:09/18/22 TIME: 1727 PATIENT: BHUMIKA JONES UNIT #: [id number] ROOM/BED: [place] [address] : 74 AGE: 47 SEX: F ATTEND: [...] Q12HR 09/18 0900 CAN (KEPPRA IV) IV 04/27 0901 Sodium Chloride 92.5 ML (SODIUM CHLORIDE [...] open eyes (commands were obtained using a permit review assistant) with opening the eyes the patient would [...] with the patient mentioned. at 1736 RPT #:[id number] END OF [id number] 14:24:00 [facility] ([facility] Neurology Consultation Note REPORT#:[id number] REPORT STATUS: Signed DATE:09/18/22 TIME: 1424 PATIENT: BHUMIKA JONES UNIT #: [id number] ROOM/BED: [place] [address] : 74 AGE: 47 SEX: F ATTEND: Marly Mendenhall MD ADM AUTHOR: Nelia Parker MD * ALL edits or amendments must be made on the electronic/computer document * See Addendum History of Present Illness HPI Requesting clinician: see consult order Reason for consult: "AMS" Chief complaint: wanting to go home for her family HPI: 47-year-old female Chilean speaking only who was brought into the [...] and the patient was sent to a prison. Reportedly per the patient she did not like the prison and does not like the food there [...] seizures prior to her being in the prison. Per the patient she get upset that [...] available to confirm the history and the prison location is unknown to contact someone who [...] MG 09/18 09/18 09/17 09/17 0553 0553 2350 1517 Chemistry Hemoglobin A1c (4.5 - 5.6 [...] - 8.0 pH UNITS) 6.5 Ur Specific [employer] (1.001 - 1.035 SG) 1.013 Urine Protein [...] the past or not. at 1652 RPT #:[id number] END OF [id number] 11:44:00 [facility] Hospitalist Progress Note REPORT#:[id number] REPORT STATUS: Signed DATE:09/18/22 TIME: 1144 PATIENT: BHUMIKA JONES UNIT #: [id number] ROOM/BED: [place] [address] : 74 AGE: 47 SEX: F ATTEND: [...] patient this morning with the help of feather curling machine operator and she said that he lives [...] refill, normal range of motion, no edema Neuro/AS400 DEVELOPER: altered mental status, alert Diagnosis, Assessment Plan [...] afternoon if remains stable at 1147 RPT #:[id number] END OF [id number] 01:06:00 [facility] ([facility]) Hospitalist History Physical REPORT#:[id number] REPORT STATUS: Signed DATE:09/18/22 TIME: 0106 PATIENT: BHUMIKA JONES UNIT #: [id number] ROOM/BED: [place] [address] : 74 AGE: 47 SEX: F ATTEND: [...] - 8.0 pH UNITS) 6.5 Ur Specific [employer] (1.001 - 1.035 SG) 1.013 Urine Protein [...] rhythm Respiratory: decreased breath sounds Abdomen: soft Neuro/AS400 DEVELOPER: altered mental status, alert Diagnosis, Assessment Plan [...] by incoming MD thereafter at 0110 RPT #:[id number] END OF [id number] 14:34:00 [facility] ([facility]) EMERGENCY PROVIDER REPORT REPORT#:[id number] REPORT STATUS: Signed DATE:09/17/22 TIME: 1434 PATIENT: BHUMIKA JONES UNIT #: [id number] ROOM/BED: [place] [address] AGE: 47 SEX: F PCP PHYS: No Primary or Family Physician SERVICE AUTHOR: Valentina Samayoa MD * ALL edits or amendments must be made on the electronic/computer document * HPI-General Illness Free Text HPI Notes Free Text HPI Notes 47-year-old female presents after possible seizure episode at [facility], will assessment patient is not fully oriented, and cannot provide history of the events of today when asked multiple times. Additional history limited as the patient is tearful and not fully oriented. I spoke to the patient's sister Lewis Chiang, phone #[phone] by phone, who reports the patient has been missing from home for 8 days. Reports when the patient is medically cleared they can come get the patient. Patient reportedly initially without medications at the [facility] PMH: Seizures, schizophrenia. General Initial Greet Date/Time 09/17/22 143 Presentation Chief Complaint Altered mental status (possible [...] Prov: 09/13/22 DC: 09/14/22 1500 entry level software developer correction DIVALPROEX (GINA CALLES) 1,000 MG PO DAILY DIVALPROEX (GINA CALLES) 1,000 MG PO DAILY #60 TABS Prov: 09/13/22 DC: 09/14/22 1459 entry level software developer correction Reported Medications DIVALPROEX ER (DEPAKOTE [...] - 8.0 pH UNITS) 6.5 Ur Specific [employer] (1.001 - 1.035 SG) 1.013 Urine Protein [...] refill, drowsy, admitted, ultimately discharged back to prison] -My EKG interpretation: I directly visualized and [...] )( Accepted Date 09/17/22 at 1114 RPT #:[id number] END OF [id number] 00:19:00 [facility] ([facility]) EMERGENCY PROVIDER REPORT REPORT#:[id number] REPORT STATUS: Signed DATE:09/17/22 TIME: 0019 PATIENT: BHUMIKA JONES UNIT #: [id number] ROOM/BED: AGE: 47 SEX: F PCP PHYS: No Primary or Family Physician SERVICE AUTHOR: Asim Jack MD * ALL edits or amendments must be made on the electronic/computer document * HPI-General Illness General Initial Greet Date/Time 09/16/22 7381 Presentation Chief Complaint Anxiety, Not feeling well Free Text HPI Notes Free Text HPI Notes Patient brought in by EMS from local women prison after increasing anxiety and concern for possible [...] Prov: 09/13/22 DC: 09/14/22 1500 entry level software developer correction DIVALPROEX DR (GINA CALLES) 1,000 MG PO DAILY DIVALPROEX DR (GINA CALLES) 1,000 MG PO DAILY #60 TABS Prov: 09/13/22 DC: 09/14/22 1459 entry level software developer correction Reported Medications DIVALPROEX ER (DEPAKOTE [...] Documented: Result Date Time Pulse Ox 99 09/176 B/P 142/84 09/18 15 B/P Mean 103 09/18 15 O2 Delivery Room air 09/18 15 Temp 36.9 09/18 15 Pulse 67 09/18 15 Resp 09/176 Review of Vital Signs Reviewed Free Text [...] Considerations Reviewed prior records Results Laboratory Tests 09/16/224: [Embedded Image Not Available] Laboratory Tests: 09/164 [...] % (Auto) (14.1 - 45.4 %) 29.6 Glades % (Auto) (2.5 - 11.7 %) 10.8 Eos % (Auto) (0.0 - 6.2 %) 2.9 Baso % (Auto) (0.0 - 2.1 %) 0.7 Gran # (2.0 - 13.7 k/mm3) 3.12 Lymph # (Auto) (0.6 - 3.8 K/mm3) 1.65 Glades # (Auto) (0.11 - 0.59 K/mm3) 0.60 [...] MD RADIOLOGY - XR CHEST 1 V 03/26 2305 Report Impression - Status: SIGNED Entered: [...] Text MDM Notes Patient presents from local prison with concern for possible seizure activity. I [...] for discharge. Patient urged to follow-up with [facility] in the next 2 to 3 [...] Recurrent (Adult) Additional Instructions Please follow-up with [facility], [facility], and neurology. Return if any confusion, headache, stiff neck, fever, vomiting, or any other new concerns. Please take all your medications as instructed Referrals Provider Group: [facility] Follow-Up: 2-3 Days Provider Referral: Nelia Parker MD Follow-Up: 2-3 Days Address: [address] [place] [address] [address] [place] [address] Resource Referral: [facility] Follow-Up: 2-3 Days Address: [address] [place] [address] at 0140 RPT #:[id number] END OF [id number] 12:06:00 [facility] ([facility]) Electroencephalogram-EEG REPORT#:[id number] REPORT STATUS: Signed DATE:09/15/22 TIME: 1206 PATIENT: BHUMIKA JONES UNIT #: [id number] ROOM/BED: [address] : 74 AGE: 47 SEX: [...] or electrographic seizures recorded. at 1209 RPT #:[id number] END OF [id number] 12:00:00 [facility] Hospitalist Discharge Summary REPORT#:[id number] REPORT STATUS: Signed DATE:09/15/22 TIME: 1200 PATIENT: BHUMIKA JONES UNIT #: [id number] [facility] AGE: 47 SEX: F ATTEND: Vladimir Forbse MD ADM AUTHOR: Vladimir Forbes MD * [...] evaluated for possible seizure episode. She is Chilean-speaking patient only in contract negotiation specialist was used. Patient denies to have any seizure episodes at home she just ran out of her medications and came to the hospital. Patient otherwise remains hemodynamically stable. However she is too drowsy to be discharged safely back home. I discussed the case with the patient. She wants her medications to be refilled and that she wants to go back to her prison. I discussed with her about potential seizure episodes in the future use of medications compliance with the medications and further prescriptions. She states that she would management to the prison. I have requested case management to evaluate [...] initial diagnosis and related differentials with the patient/animal care attendant including RN. All concerns and questions are answered to the best of my abilities based on the available data.I have initiated the plan of care based on preliminary diagnosis, requested appopriate consultations with labs/imagings. Patient/animal care attendant verbalizes understanding of the plan of [...] up timeframe: In 1-2 weeks at 1202 [facility] #:[id number] END OF [id number] 16:56:00 [facility] ([facility]) Neurology Consultation Note REPORT#:[id number] REPORT STATUS: Signed DATE:09/14/22 TIME: 165 PATIENT: BHUMIKA JONES UNIT #: [id number] ROOM/BED: [address] : 74 AGE: 47 SEX: [...] evaluated for possible seizure episode. She is Chilean-speaking patient only in contract negotiation specialist was used. Patient denies to have any [...] Mean 93.8 09/14 153 Temp 97.9 09/14 153 Pulse 69 09/14 153 Resp 16 09/14 1534 O2 Delivery Room [...] (SODIUM CHLORIDE 0.9% 1000 ML) 1,000 ML .[id number] IV Trazodone HCl (DESYREL) 50 MG BEDTIME PRN PRN PO Sodium Chloride (SODIUM CHLORIDE 0.9% 1000 ML) 1,000 ML .[id number] IV Carbamazepine (TEGretol) 400 MG BID PO Divalproex Sodium (DEPAKOTE DR) 1,000 MG BID PO (DC) Acetaminophen (TYLENOL) 650 MG Q6H PRN PRN PO Ondansetron HCl (ZOFRAN) 4 MG Q4H PRN PRN IV Ceftriaxone Sodium (ROCEPHIN) 1 GM Q24H IV (CAN) Lactated Ringer's (LACTATED RINGERS) 1,000 ML .[id number] IV Ceftriaxone Sodium (ROCEPHIN) 1 GM X1ED [...] % (Auto) (14.1 - 45.4 %) 33.6 Glades % (Auto) (2.5 - 11.7 %) 13.4 H Eos % (Auto) (0.0 - 6.2 %) 7.4 H Baso % (Auto) (0.0 - 2.1 %) 0.9 Gran # (2.0 - 13.7 k/mm3) 2.61 Lymph # (Auto) (0.6 - 3.8 K/mm3) 1.96 Glades # (Auto) (0.11 - 0.59 K/mm3) 0.78 [...] - 8.0 pH UNITS) 6.0 Ur Specific [employer] (1.001 - 1.035 SG) 1.032 Urine Protein [...] evidence of acute cardiopulmonary process. Impression By: [email or web address] - Igor Almonte MD CAT SCAN - [...] deferred to primary team. at 1707 RPT #:[id number] END OF [id number] 14:55:00 [facility] ([facility]) Hospitalist History Physical REPORT#:[id number] REPORT STATUS: Signed DATE:09/14/22 TIME: 1454 PATIENT: BHUMIKA JONES UNIT #: [id number] ROOM/BED: 250[address]W : 74 AGE: 47 SEX: [...] evaluated for possible seizure episode. She is Chilean-speaking patient only in contract negotiation specialist was used. Patient denies to have any [...] (0.88 - 1.13 INR Unit) 0.95 PTT ([place]) (24 - 37.7 SECONDS) 34.6 Toxicology Valproic [...] % (Auto) (14.1 - 45.4 %) 33.6 Glades % (Auto) (2.5 - 11.7 %) 13.4 H Eos % (Auto) (0.0 - 6.2 %) 7.4 H Baso % (Auto) (0.0 - 2.1 %) 0.9 Gran # (2.0 - 13.7 k/mm3) 2.61 Lymph # (Auto) (0.6 - 3.8 K/mm3) 1.96 Glades # (Auto) (0.11 - 0.59 K/mm3) 0.78 [...] - 8.0 pH UNITS) 6.0 Ur Specific [employer] (1.001 - 1.035 SG) 1.032 Urine Protein [...] evaluated for possible seizure episode. She is Chilean-speaking patient only in contract negotiation specialist was used. Patient denies to have any [...] initial diagnosis and related differentials with the patient/animal care attendant including RN. All concerns and questions are answered to the best of my abilities based on the available data.I have initiated the plan of care based on preliminary diagnosis, requested appopriate consultations with labs/imagings. Patient/animal care attendant verbalizes understanding of the plan of care. at 1501 RPT #:[id number] END OF [id number] 04:21:00 [facility] EMERGENCY PROVIDER REPORT REPORT#:[id number] REPORT STATUS: Signed DATE:09/14/22 TIME: 420 PATIENT: BHUMIKA JONES UNIT #: [id number] ROOM/BED: [place] [address] AGE: 47 SEX: F PCP PHYS: No [...] she needs to see a social services but is unsure how to arrange that. 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 She [...] agree with the plan of care. at 4455 at 3814 RPT #:[id number] END OF [id number] 20:34:00 [facility] EMERGENCY PROVIDER REPORT REPORT#:[id number] REPORT STATUS: Signed DATE:09/13/22 TIME: 2033 PATIENT: BHUMIKA JONES UNIT #: [id number] ROOM/BED: [address]250[address] AGE: 47 SEX: F PCP [...] 3 MG PO DAILY at 1707 RPT #:[id number] END OF [id number] 09:58:00 [facility] EMERGENCY PROVIDER REPORT REPORT#:[id number] REPORT STATUS: Signed DATE:09/13/22 TIME: 957 PATIENT: BHUMIKA JONES UNIT #: [id number] ROOM/BED: AGE: 47 SEX: F PCP PHYS: [...] - 8.0 pH UNITS) 6.0 Ur Specific [employer] (1.001 - 1.035 SG) 1.024 Urine Protein [...] % (Auto) (14.1 - 45.4 %) 34.0 Glades % (Auto) (2.5 - 11.7 %) 10.1 Eos % (Auto) (0.0 - 6.2 %) 2.7 Baso % (Auto) (0.0 - 2.1 %) 0.7 Gran # (2.0 - 13.7 k/mm3) 3.04 Lymph # (Auto) (0.6 - 3.8 K/mm3) 1.98 Glades # (Auto) (0.11 - 0.59 K/mm3) 0.59 [...] or a call to 911. at 1327 [facility] #:[id number] END OF REPORTANMED HEALTH W[facility]
[2024-08-04 17:42] LABS: Absolute Basophils 0.1 K/uL (0-0.5); Absolute Eosinophils 0.2 K/uL (0-0.5); Absolute Lymphocytes (CBC) 1.9 K/uL (0.7-4.9); Absolute Monocytes 0.4 K/uL (0.1-1.3); Absolute Neutrophil 1.9 K/uL (1.8-8.0); Basophils % 1.3 % (0-1.3); Eosinophils % 4.2 % (0-4.4); Hematocrit 33.7 % (36.0-45.0); Hemoglobin 11.2 g/dL (12.0-15.0); Lymphocytes % 42.9 % (15.3-44.8); MCH 28.4 pg (27.0-35.0); MCHC 33.1 g/dL (32.0-36.0); MCV 85.7 fL (80-100); Monocytes % 9.2 % (3.3-12.3); Neutrophils % 42.4 % (41.7-73.7); Nucleated Red Blood Cells % 0.1 % (0-0); Platelets 151 thou/uL (152-406); RBC Red Blood Cell Count 3.93 M/uL (3.86-4.86); Red Cell Distribution Width 16.3 % (12.1-15.2)
[2024-08-04 17:58] LABS: Anion Gap 8.2 mEq/L (5.0-15.0); Potassium 4.2 mEq/L (3.5-5.1); Troponin High Sensitivity 5.5 pg/mL (<58.9)
--- NOTE | 2024-08-04 18:01 | ER ---
Nurse's Notes [facility] Name: Davida Hodges Age: 49 yrs Sex: Female : 1975 Arrival Date: 08/04/2024 Time: 17:19 Bed 20 Private MD: Diagnosis: Chest pain, unspecified;Palpitations Presentation: 08/04 17:25 Chief complaint: Patient states: She was having an argument with her family and started cm10 having chest pain and headache. Coronavirus screen: Client denies travel out of the [place] in the last 14 days. Ebola Screen: Patient denies travel to an Ebola-affected area in the 21 days before illness onset. Initial Sepsis Screen: Does the patient meet any 2 criteria? No. Patient's initial sepsis screen is negative. Does the patient have a suspected source of infection? No. Patient's initial sepsis screen is negative. Risk Assessment: Do you want to hurt yourself or someone else? Patient reports no desire to harm self or others. Onset of symptoms was August 04, 2024. 17:25 Method Of Arrival: EMS: [facility] cm10 17:25 Acuity: CARMITA 3 cm10 Triage Assessment: 17:56 General: Appears in no apparent distress. comfortable, Behavior is calm, cooperative. cm10 Pain: Complains of pain in head, back and chest Pain currently is 10 out of 10 on a pain scale. Neuro: No deficits noted. Level of Consciousness is awake, alert, obeys commands, Oriented to person, place, time, situation, Appropriate for age. Cardiovascular: Reports chest pain. Respiratory: No deficits noted. Airway is patent Respiratory effort is even, unlabored, Respiratory pattern is regular, symmetrical. 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 - Infectious Disease History:: Denies. - Social history:: Smoking status: Patient denies any tobacco usage or history of. - Family history:: not pertinent. - Hospitalizations: : No recent hospitalization is reported. Screenin:57 [facility] ED Fall Risk Assessment (Adult) History of falling in the last 3 months, cm10 including since admission No falls in past 3 months (0 pts) Confusion or Disorientation No (0 pts) Intoxicated or Sedated No (0 pts) Impaired Gait No (0 pts) Mobility Assist Device Used No (0 pt) Altered Elimination No (0 pt) Score/Fall Risk Level 0 - 2 = Low Risk Oriented to surroundings, Maintained a safe environment, Hourly rounding (assess needs \T\ fall precautionary measures) done. Abuse screen: Denies threats or abuse. Denies injuries from another. Nutritional screening: No deficits noted. Tuberculosis screening: No symptoms or risk factors identified. Assessment: 18:20 Reassessment: Patient appears in no apparent distress at this time. Patient and/or cm10 family updated on plan of care and expected duration. Pain level reassessed. Patient is alert, oriented x 3, equal unlabored respirations, skin warm/dry/pink. Patient states feeling better. Patient states symptoms have improved. 18:21 Pain: Pain does not radiate. Pain began suddenly. cm10 Vital Signs: 17:25 BP 138 / 58; Pulse 67; Resp 18; Temp 98; Pulse Ox 100% on R/A; Pain 10/10; cm10 18:10 BP 132 / 95; Pulse 59; Resp 15; Pulse Ox 100% on R/A; cm10 17:25 Pain Scale: Adult cm10 ED Course: 17:20 Patient arrived in ED. rn 17:21 Yong Banks MD is Attending Physician. rn 17:22 Iris Perez, RN is Primary Nurse. cm10 17:26 Triage completed. cm10 17:26 Arm band placed on right wrist. Patient placed in an exam room, on a stretcher. cm10 17:33 Troponin High Sensitivity Sent. cm10 17:33 Basic Metabolic Panel Sent. cm10 17:33 CBC with Diff Sent. cm10 17:33 Initial lab(s) drawn, by ky, sent to lab. Inserted saline lock: 20 gauge in right cm10 forearm, using aseptic technique. Blood collected. Flushed with 10 mL NS. 17:56 No provider procedures requiring assistance completed. EKG done, by ED staff, reviewed cm10 by Yong Banks MD. Patient maintains SpO2 saturation greater than 95% on room air. 17:57 Patient has correct armband on for positive identification. Bed in low position. Call cm10 light in reach. Side rails up X2. Provided Education on: ER process and procedures.. Client placed on continuous cardiac and pulse oximetry monitoring. NIBP monitoring applied. 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 18:20 IV discontinued, intact, bleeding controlled, No redness/swelling at site. Pressure cm10 dressing applied. Administered Medications: No medications were administered Medication: 17:57 VIS not applicable for this client. cm10 Outcome: 18:01 Discharge ordered by . rn 18:20 Discharged to home ambulatory, 10 18:20 Condition: good 18:20 Discharge instructions given to patient, Instructed on discharge instructions, follow up and referral plans. Demonstrated understanding of instructions, follow-up care, 18:22 Patient left the ED. cm10 Signatures: Yong Banks MD MD rn Martinez, Clarissa, RN RN 10
--- NOTE | 2024-08-04 18:01 | EDPHYS ---
Physician Documentation [facility] Name: Davida Hodges Age: 49 yrs Sex: Female : 1975 Arrival Date: 08/04/2024 Time: 17:19 Bed 20 Private MD: ED Physician Yong Banks HPI: 08/04 17:25 This 49 yrs old Female presents to ER via Unassigned with complaints of Chest rn Pain. 17:25 The patient or guardian reports chest pain that is located primarily in the anterior rn chest wall, left. Onset: at an unknown time. The pain does not radiate. Associated signs and symptoms: Pertinent positives: palpitations, Pertinent negatives: cough, diaphoresis, shortness of breath, syncope, vomiting. The chest pain is described as aching. Severity of pain: At its worst the pain was mild in the emergency department the pain is unchanged. The patient has experienced similar episodes in the past. Patient reports left-sided chest pain with palpitations, no radiation. No trauma. Seen here yesterday for headache and vertigo.. DEPUTY K 9: 18:22 unknown cm10 Historical: - Allergies: 17:23 CARBAMAZEPINE DERIVATIVES; cm10 17:23 Depakote; cm10 17:23 Tegretol; cm10 - PMHx: 17:23 Seizure; cm10 - Immunization history:: Adult Immunizations up to date. - Infectious Disease History:: Denies. - Social history:: Smoking status: Patient denies any tobacco usage or history of. - Family history:: not pertinent. - Hospitalizations: : No recent hospitalization is reported. ROS: 17:25 Constitutional: Negative for fever, chills, and weight loss, Cardiovascular: Positive rn for chest pain and palpitations Respiratory: Negative for shortness of breath, cough, wheezing, and pleuritic chest pain, Abdomen/GI: Negative for abdominal pain, nausea, vomiting, diarrhea, and constipation, MS/Extremity: Negative for injury and deformity, Neuro: Negative for headache, weakness, numbness, tingling, and seizure, Exam: 17:25 Constitutional: This is a well developed, well nourished patient who is awake, alert, rn and in no acute distress. Head/Face: Normocephalic, atraumatic. Cardiovascular: Regular rate and rhythm . No pulse deficits. Respiratory: No increased work of breathing, no retractions or nasal flaring. Abdomen/GI: Soft, non-tender MS/ Extremity: Pulses equal, no cyanosis. Neuro: Awake and alert, GCS 15 18:00 ECG was reviewed by the Attending Physician. rn Vital Signs: 17:25 BP 138 / 58; Pulse 67; Resp 18; Temp 98; Pulse Ox 100% on R/A; Pain 10/10; cm10 18:10 BP 132 / 95; Pulse 59; Resp 15; Pulse Ox 100% on R/A; cm10 17:25 Pain Scale: Adult cm10 MDM: 17:21 Medical Screening Exam initiated rn 18:00 Differential diagnosis: acute myocardial infarction, acute pericarditis, anxiety, chest rn wall pain. Data reviewed: vital signs, nurses notes, lab test result(s), EKG, and as a result, I will discharge patient. Counseling: I had a detailed discussion with the patient and/or guardian regarding the historical points, exam findings, and any diagnostic results supporting the discharge/admit diagnosis, lab results, the need for outpatient follow up, to return to the emergency department if symptoms worsen or persist or if there are any questions or concerns that arise at home. Special discussion: Based on the patient's history, exam, and Dx evaluation, there is no indication for emergent intervention or inpatient Tx. It is understood by the patient/guardian that if the Sx's persist or worsen they need to return immediately for re-evaluation. I discussed with the patient/guardian in detail that at this point there is no indication for admission to the hospital. It is understood, however, that if the symptoms persist or worsen the patient needs to return immediately for re-evaluation. 08/04 17:21 Order name: CBC with Diff; Complete Time: 18:00 rn 08/04 17:21 Order name: Basic Metabolic Panel; Complete Time: 18:00 rn 08/04 17:21 Order name: Troponin High Sensitivity; Complete Time: 18:00 rn 08/04 17: Order name: EKG; Complete Time: 17:21 rn 08/04 17: Order name: EKG - Nurse/Tech; Complete Time: 17:56 rn 08/04 17: Order name: IV Start; Complete Time: 17:33 rn EC:00 Rate is 59 beats/min. Rhythm is regular. QRS [place] is Normal. MT interval is normal. QRS rn interval is normal. QT interval is normal. No Q waves. T waves are Normal. No ST changes noted. Clinical impression: Sinus bradycardia. Interpreted by me. Reviewed by me. Administered Medications: No medications were administered Disposition Summary: 08/04/24 18:01 Discharge Ordered Notes: Location: Home rn Problem: an ongoing problem rn Symptoms: have improved rn Condition: Stable rn Diagnosis - Chest pain, unspecified rn - Palpitations rn Followup: rn - With: Private Physician - When: As needed - Reason: Recheck today's complaints, Re-evaluation by your physician Discharge Instructions: - Discharge Summary Sheet rn - Nonspecific Chest Pain, Adult rn - Palpitations rn Forms: - Medication Reconciliation Form rn - Antibiotic rn pediatric - Prescription Opioid Use rn - Patient Portal Instructions rn - Leadership Thank You Letter rn Signatures: Dispatcher [employer] Yong Hernandez MD MD rn Martinez, Clarissa, RN RN [facility]
[2024-08-04 22:46] VITALS: TEMP 98; O2SAT 100
[2024-08-04 22:47] VITALS: BP 132/95
== END 2024-08-04 18:22 | disposition home or self-care (01) ==
LOC: ER 17:19
DX: R07.89 Other chest pain (principal); R00.2 Palpitations
CPT/HCPCS: 36415; 80048; 84484; 85025; 93005

== ENCOUNTER 2024-08-14 14:33 | Emergency (ER) | payer SELFPAY ==
--- OUTSIDE RECORDS SUMMARY | 2024-08-14 14:42 | XMS REPORT | Continuity of Care Document ---
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 Outpatient [...] 2023-11-25 00:00:00 2023-11-25 00:00:00 Outpatient Visit SFA [id number] Henry Quiles Ben 2023-11-23 19:45:00 2023-11-24 19:04:00 [facility] 2.16.840.1. [id number] [facility] 2023-11-21 19:00:00 2023-11-22 01:00:00 Emergency ER [facility]S [id number] [facility] 2023-11-16 23:05:00 2023-11-21 17:28:00 Inpatient ER JUAN MIGUEL PR[id number] [facility] 2023-11-15 16:24:00 2023-11-15 22:54:00 Emergency ER MELVINA SHEPHERD CHRTJP CHRTJP [id number] [facility] Pamela Ro [facility] 2023-10-28 12:27:38 2023-10-28 12:27:38 Outpatient SFA SFA [id number] Henry Quiles Ben 2023-10-25 15:44:11 2023-10-25 15:44:11 Outpatient SFA SFA [id number] Henry Quiles Ben 2023-10-25 00:00:00 2023-10-25 00:00:[address] [facility] [id number] Henry Contreras 2023-10-04 15:25:52 2023-10-04 15:25:[address] [facility] [id number] Henry Contreras 2023-10-01 00:00:00 2023-10-01 00:00:00 Telephone Indio Phelan [facility] 1.2.840.114 350.1.13.10 4.2.7.2.686 [id number] [facility] 2023-09-16 16:03:08 2023-09-16 16:03:[address] [facility] [id number] Henry Contreras 2023-08-01 10:00:49 2023-08-01 10:00:49 Outpatient [facility] [id number] Henry Quiles Ben 2023-07-23 14:20:00 2023-07-23 16:57:02 Outpatient Abner TAPANINDIO INDIO PHELAN [facility] [id number] [facility] 2023-07-23 14:20:00 2023-07-23 16:57:02 Office Visit Indio Phelan [facility] 1.2.840.114 350.1.13.10 4.2.7.2.686 [id number] [facility] 2023-07-23 00:00:00 2023-07-23 00:00:00 Orders Only Doctor Unassigned, [place] [facility] 1..840.114 350.1.13.10 4.2.7.2.686 [id number] [facility] 2023-07-04 16:48:23 2023-07-04 16:48:[address] [facility] [id number] Henry Contreras 2023-06-18 10:35:36 2023-06-18 10:35:36 Outpatient [facility] [id number] Henry Contreras 2023-06-05 00:00:00 2023-06-05 00:00:00 Orders Only Doctor Unassigned, [place] [facility] 1.2.840.114 350.1.13.10 4.2.7.2.686 [id number] [facility] 2023-06-04 16:00:39 2023-06-04 16:00:39 Outpatient [facility] [id number] Henry Contreras 2023-05-24 15:38:52 2023-05-24 15:38:52 Outpatient [facility] [id number] Henry Contreras 2023-05-22 00:00:00 2023-05-22 00:00:00 Letter (Out) Neurology [facility] 1.2.840.114 350.1.13.10 4.2.7.2.686 [id number] [facility] 2023-05-20 00:00:00 2023-05-20 00:00:00 Orders Only Doctor Unassigned, [place] [facility] 1.2.840.114 350.1.13.10 4.2.7.2.686 [id number] [facility] 2023-05-17 15:07:14 2023-05-17 15:07:14 Outpatient [facility] [id number] Henry Contreras 2023-03-02 12:27:43 2023-03-02 12:27:43 Outpatient [facility] [id number] Henry Contreras 2023-01-09 17:11:26 2023-01-09 17:11:26 Outpatient [facility] [id number] Henry Contreras 2022-11-04 14:04:00 2022-11-05 11:09:00 Emergency JESS FALCON [facility] [id number] [facility] 2022-09-24 12:33:00 2022-09-24 12:51:00 Emergency Heri Snow [facility] 1.2840.114 350.1.13.10 4.2.7.2.686 [id number] [facility] 2022-09-22 00:00:00 2022-09-22 00:00:00 Nurse Triage Marisa barclay Madhavi Mota [facility] 1.2840.114 350.1.13.10 4.2.7.2.686 [id number] [facility] 2022-09-18 10:09:00 2022-09-19 14:28:00 Inpatient EM Marly Mendenhall [facility] OBSE [id number] [facility] 2022-09-16 22:50:00 2022-09-17 01:40:00 Emergency EM Asim Jack [facility] FABI [id number] [facility] 2022-09-14 14:52:00 2022-09-15 14:00:00 Inpatient EM Vladimir Forbes [facility] TELE [id number] [facility] 2022-09-13 09:34:00 2022-09-13 13:00:00 Emergency EM Brad Woodall [facility] FABI [id number] 75 [facility] 2022-09-10 23:39:00 2022-09-11 11:28:00 Emergency EM [facility] [id number] [facility] 2022-[facility]-10 18:57:00 2022-09-10 20:20:00 Emergency Lisa Morfin Whitney [facility] 1.840.114 350.1.13.10 4.2.7.2.686 [id number] [facility] 2022-09-10 18:57:00 2022-09-10 20:20:00 Emergency SANDRITA CHÁVEZ [facility] E[facility] [id number] [facility] 2022-09-09 20:45:00 2022-09-09 22:46:00 Emergency X SANDRITA KEY [facility] [id number] [facility] 2022-09-09 20:45:00 2022-09-09 22:46:00 Emergency Sandrita Key [facility] 1.840.114 350.1.13.10 4.2.7.2.686 [id number] [facility] 2022-09-06 18:09:00 2022-09-07 00:51:00 Emergency X TAYO BOYD [facility] [id number] [facility] 2022-09-06 18:09:00 2022-09-07 00:51:00 Emergency OliverTayo J [facility] 1.840.114 350.1.13.10 4.2.7.2.686 [id number] [facility] 2022-08-21 14:11:33 2022-08-21 14:11:33 Outpatient [facility] [id number] Henry Quiles [place] 2022-07-17 15:03:48 2022-07-17 15:03:48 Outpatient [facility] [id number] eHnry Quiles Ben 2021-10-02 15:56:00 2021-10-02 19:00:00 Emergency X JAVED FRANK [facility] [id number] [facility] 2021-10-02 15:56:00 2021-10-02 19:00:00 Emergency Javed Frank [facility] 1.840.114 350.1.13.10 4.2.7.2.686 [id number] [facility] 2021-05-05 13:22:00 2021-05-05 14:48:00 Emergency X DEON NUNEZ [facility] [id number] [facility] 2021-05-05 13:22:00 2021-05-05 14:48:00 Emergency Deon Nunez [facility] 1..840.114 350.1.13.10 4.2.7.2.686 [id number] [facility] 2021-05-05 00:00:00 2021-05-05 00:00:00 Orders Only Doctor Unassigned, [place] [facility] 1.2.840.114 350.1.13.10 4.2.7.2.686 [id number] [facility] 2019-12-15 17:11:56 2019-12-15 18:04:00 Emergency Kp [facility] 1.2.840.114 350.1.13.10 4.2.7.2.686 [id number] 2019-12-15 17:11:56 2019-12-15 18:04:00 Emergency Kp [facility] 1.2.840.114 350.1.13.10 4.2.7.2.686 [id number] [facility] 2019-12-15 17:11:56 2019-12-15 17:11:56 Emergency X Kp GILLILAND [facility] [id number] [facility] 2019-10-25 18:31:31 2019-10-25 19:21:00 Emergency Kristin Miller [facility] 1.2.840.114 350.1.13.10 4.2.7.2.686 [id number] 2019-10-25 18:31:31 2019-10-25 19:21:00 Emergency Kristin Miller [facility] 1.2.840.114 350.1.13.10 4.2.7.2.686 [id number] [facility] 2019-10-25 18:31:31 2019-10-25 18:31:31 Emergency X KRISTIN MILLER [facility] [id number] [facility] 2019-08-13 13:30:00 2019-08-13 14:36:00 Emergency Floridalma Evans [facility] 1.2.840.114 350.1.13.10 4.2.7.2.686 [id number] 2019-08-13 13:30:00 2019-08-13 14:36:00 Emergency Floridalma Evans [facility] 1.2.840.114 350.1.13.10 4.2.7.2.686 [id number] [facility] 2019-08-13 13:30:00 2019-08-13 14:36:00 Emergency X FLORIDALMA EVANS [facility] [id number] [facility] 2019-07-22 13:42:11 2019-07-22 19:02:00 Emergency Unknown, Attending Lisa Morfni [facility] 1.2.840.114 350.1.13.10 4.2.7.2.686 [id number] 2019-07-22 13:42:11 2019-07-22 19:02:00 Emergency X LISA MORFIN [facility] [id number] [facility] 2019-07-22 13:42:11 2019-07-22 19:02:00 Emergency Unknown, Attending Lisa Morfin [facility] 1.2.840.114 350.1.13.10 4.2.7.2.686 [id number] [facility] 2019-07-13 20:17:19 2019-07-13 21:48:00 Emergency X HENRY OWEN [facility] [id number] [facility] 2019-07-13 20:17:19 2019-07-13 21:48:00 Emergency Trena Henry [facility] 1.2.840.114 350.1.13.10 4.2.7.2.686 [id number] [facility] 2019-07-10 14:26:03 2019-07-10 16:33:00 Emergency X DEBBIE PAYTON [facility] [id number] [facility] 2019-07-10 14:26:03 2019-07-10 16:33:00 Emergency Debbie Payton [facility] 1.2.840.114 350.1.13.10 4.2.7.2.686 [id number] [facility] 2019-07-04 19:09:02 2019-07-04 22:51:00 Emergency X LISA MORFIN [facility] [id number] [facility] 2019-06-30 10:33:08 2019-06-30 13:10:00 Emergency X DEON NUNEZ [facility] [id number] [facility] 2019-05-25 11:58:19 2019-05-25 15:37:00 Emergency X DEON NUNEZ [facility] [id number] [facility] 2019-04-09 22:29:37 2019-04-09 23:28:00 Emergency X FLORIDALMA EVANS [facility] [id number] [facility] 2019-01-21 18:38:01 2019-01-21 19:59:00 Emergency Le Ramirez [facility] 1.2.840.114 350.1.13.10 4.2.7.2.686 [id number] 2019-01-21 18:38:01 2019-01-21 19:59:00 Emergency Le Ramirez [facility] 1.2.840.114 350.1.13.10 4.2.7.2.686 [id number] [facility] Results Test Description Test Time Test Comments Results Result Co mments Source Henry Griffin, THIRD [id number] 00:00:00* Test Item Value Reference Range Interpretation Comme nts TSH, THIRD GENERATION (test code = 2821) 3.970 UIU/ML Henry Quiles María [id number] 04:20:00* Test Item Value Reference Range Interpretation Comme nts FT4 (test code = FT4) 1.05 ng/dL 0.78-2.19 T3 [id number] 04:20:00* Test Item Value Reference Range Interpretation Comme nts T3UP (test code = T3UP) 40.9 % 23.5-40.5 H Thyroxine (T4) free index in Serum or [id number] 04:19:00* Test Item Value Reference Range Interpretation Comme nts Thyroxine (T4) free index in Serum or Plasma (test code = 86851-4) 1.05 ng/dL 0.78-2.19 N [facility])Thyroid hormone uptake (T-uptake) in Serum or P 2023-11-24 04:18:00* Test Item Value Reference Range Interpretation Comme nts Thyroid hormone uptake (T-up take) in Serum or Plasma (test code = 94325-5) 40.9 % 23.5-40.5 H [facility])URINE DRUG [id number] 00:43:00* Test Item Value Reference Range Interpretation [...] abuse 5 panel - Urine by Screen zqtjwk5830-06-44 00:40:00 NegativeNegativeNegativeNegativeNegativeNegativeNegative[facility])KGRLLMBKDB5472-75-23 00:33:00* Test Item Value Reference Range Interpretation [...] /HPF 0-2 Urinalysis panel - Urine by Vnag0983-94-35 00:33:00* Test Item Value Reference Range Interpretation Comme nts Ketones [Presence] in Urine (test code = 57739-7) 15 MG/DL NEG N pH of Urine (test code = 2756-5) 5.5 1 5.0-7.5 N Urobilinogen [Presence] in U rine (test code = 51078-4) 0.2 EU/DL 0.2-1.0 N Specific gravity of Urine (t est code = 2965-2) 1.013 1 1.0-1.025 N Leukocytes [Presence] in Uri ne sediment by Light microscopy (test code = 47354-2) 10 /HPF 0.0-5.0 H Erythrocytes [Presence] in U rine sediment by Light microscopy (test code = 56482-5) 2 /HPF 0.0-2.0 N [facility]VITAMIN [id number] 22:47:00* Test Item Value Reference Range Interpretation Comme nts B12 (test code = B12) 880 pg/mL 239-931 [id number] 22:47:00* Test Item Value Reference Range Interpretation Comme nts FOLATE (test code = FOLATE) 8.9 ng/mL 2.76-20.0 THYROID STIMULATION [id number] 22:47:00* Test Item Value Reference Range Interpretation Comme nts TSH (test code = TSH) 6.62 UIU/ML 0.465-4.68 H Cobalamin (Vitamin B12) [Mass/volume] in Lcpai1266-70-40 22:47:00* Test Item Value Reference Range Interpretation Comme nts Cobalamin (Vitamin B12) [Mass/volume] in Serum or Plasma (test code = 2132-9) 880 pg/mL 239.0-931.0 N [facility])Folate [Mass/volume] in Serum or Ulokub5657-85-31 22:47:00* Test Item Value Reference Range Interpretation Comme nts Folate [Mass/volume] in Seru m or Plasma (test code = 2284-8) 8.9 ng/mL 2.76-20.0 N [facility])Thyrotropin in Serum or Uowhmi0747-41-48 22:47:00* Test Item Value Reference Range Interpretation Comme nts Thyrotropin in Serum or Plas ma (test code = 81425-2) 6.62 UIU/ML 0.465-4.68 H [facility])ER SCREEN FOR HIV / 22:46:00* Test Item Value Reference Range Interpretation Comme [facility] HIV 1/2 AB (test code = SCRN HIV) NEGATIVE NEGATIVE This test is us ed for SCREENING purposes only. All reactive results are prelimenary and confirmation results will follow. HIV 1+2 Ab [Units/volume] in Lijyp7553-40-00 22:45:[facility]HEPATITIS C ANTIBODY [id number] 22:28:00* Test Item Value Reference Range Interpretation Comme nts SCRN HCV (test code = SCRN HCV) NEGATIVE NEGATIVE Hepatitis C Anti body test is for screening purposes only. All reactives will be confirmed by additional testing. Hepatitis C virus Ab [Presence] in Phmqb0206-73-15 22:27:00[facility])B-HCG QUAL (KIT)2023-11-23 22:01:00* Test Item Value Reference Range Interpretation Comme nts HCGQUAL (test code = HCGQUAL) NEGATIVE NEGATIVE URINE: NEGATIVE = < 20 mIU/ML; POSITIVE= >/= 20 mIU/ML SERUM: NEGATIVE = < 10 mIU/ML; POSITIVE= >/= 10 mIU/ML SOURCE (test code = SOURCE) SERUM HCG INTERNAL POSITIVE CNTRL (test code = HCGIPC) PASS PASS HCG LOT # (test code = UHCGLOT) [id number] HCG EXPIRATION DATE (test code = UHCGEXP) Choriogonadotropin.beta subunit ( ucfv6593-05-77 22:01:00* Test Item Value Reference Range Interpretation Comme nts Specimen source [Identifier] of Body fluid (test code = 68863-6) SERUM N Reagent Lot number (test cod e = 70816-7) 1 N [facility])CT HEAD W/O [id number] 22:00:[address] [facility] [place] : 1975 Sex: F[address] [address]TAMCVEWMET IMAGING REPORTPatient Name: JONATHAN JONESDate of Service: 85-30-4084Omo: 48 Sex: F Order #: [id number] Room: ERSDOB: 1975 X-Ray Number: [id number] Record Number: [id number] Hospital Number: [id number] Physician: LAWRENCE MEJIASOrdering Physician: LAWRENCE MEJIASPROCEDURE: CTHEAD [...] 21:59:03CT Head and Orbit - bilateral WO sirtqaze2550-33-06 21:59:03 ORDER 1400: CT HEAD W/O CONT (LOINC: 59487-5)ORDER DATE: November 24, 2023 12:50:00 AM [facility]CT ABDOMEN/PELVIS [id number] 21:54:[address] [facility] [place] CON[place] : 1975 Sex: F[address] [address]WHXBBDEFTX IMAGING REPORTPatient Name: ROBERT, CONCEPTIONDate of Service: 40-58-1251Moj: 48 Sex: F Order #: [id number] Room: ERSDOB: 1975 X-Ray Number: [id number] Record Number: [id number] Hospital Number: [id number] Physician: LAWRENCE MEJIASOrdering Physician: LAWRENCE MEJIASPROCEDURE: CT [...] YUNIOR MCKEON 2023-11-23 21:53:03 CT Abdomen and Gudcdt7267-79-55 21:53:03ORDER 1500: CT ABDOMEN/PELVIS WITHOUT (LOINC: 70670-6)ORDER DATE: November 24, 2023 12:50:00 AM [facility])[id number] 21:31:00* Test Item Value Reference Range Interpretation [...] 70-99 Fasting glucos e normal <100 MG/DL- [employer] recommendation CALCIUM (test code = [...] of age is not validated by the wall taper and may not represent the patients true [...] should be used in the calculation". CREATINE [id number] 21:31:00* Test Item Value Reference Range Interpretation Comme nts CK (test code = CK) 115 U/L 30-135 BLOOD ALCOHOL (ETOH)2023-11-23 21:31:00* Test Item Value Reference Range Interpretation Comme nts ALCOHOL BLOOD LEVEL (test code = ALC BLD) <10 MG/DL 0-10 Results ar e to be used for medical purposes (treatment) only. Not intended for non medical purposes. Ethanol [Mass/volume] in [id number] 21:30:00* Test Item Value Reference Range Interpretation Comme nts Ethanol [Mass/volume] in Blo od (test code = 5640-8) <10 0.0-10.0 [facility])Creatine kinase isoenzymes [interpretation] in 2023-11-23 21:30:00* Test Item Value Reference Range Interpretation Comme nts Creatine kinase isoenzymes [interpretation] in Serum or Plasma Narrative (test code = 81051-4) 115 U/L 30.0-135.0 [facility])Comprehensive metabolic 2000 panel - Serum [...] total [Moles/volume] in Blood (test code = 83198-4) 24 MMOL/L 22.0-30.0 N Urea nitrogen [Mass/volume] in Serum or Plasma (test code = 3094-0) 16 MG/DL 7.0-17.0 N Creatinine [Mass/volume] in Blood (test code = 46328-9) 0.6 MG/DL 0.7-1.2 L Glucose [Mass/volume] in Blood (test code = 2339-0) 80 MG/DL 70.0-99.0 N Calcium [Mass/volume] in Serum or Plasma (test code = 16065-0) 10.3 MG/DL 8.4-10.2 H Protein [Mass/volume] in Serum or Plasma (test code = 2885-2) 9.9 G/DL 6.3-8.2 H Albumin [Presence] in Serum or Plasma (test code = 96091-2) 4.7 G/DL 3.5-5.0 N Bilirubin direct and total panel [Mass/volume] - Serum or Plasma (test code = 36361-7) 0.8 MG/DL 0.2-1.3 N Aspartate aminotransferase [Enzymatic [...] 50 percent [- Reported] (test code = 68314-0) 113.0 mL/min/1.73m2 N Anion gap in Serum or Plasma (test code = 89572-4) 13 mmol/L 4.0-12.0 H [facility])[id number] 21:15:00* Test Item Value Reference Range Interpretation [...] 1.2-7.2 CBC W Auto Differential panel - [id number] 21:15:00* Test Item Value Reference Range Interpretation Comme nts Leukocytes other [Identifier ] in Blood by Automated count (test code = 62368-5) 4.5 K/UL 3.5-10.9 N Erythrocytes [#/volume] in B lood (test code = 79779-3) 4.91 M/UL 4.0-5.0 N Hemoglobin A/Hemoglobin.tota l in Blood (test code = 4546-8) 13.8 G/DL 11.5-15.5 N Hematocrit [Volume Fraction] of Blood (test code = 40143-9) 42.4 % 34.0-46.0 N Erythrocyte mean corpuscular volume [Entitic volume] (test code = 60510-3) 86.4 FL 80.0-98.0 N Erythrocyte mean corpuscular hemoglobin [Entitic mass] (test code = 57329-7) 28.1 PG 28.0-32.0 N Erythrocyte mean corpuscular hemoglobin concentration [Mass/volume] (test code = 41690-0) 32.5 G/DL 32.5-36.5 N Erythrocyte distribution wid th [Ratio] (test code = 39539-5) 14.9 % 11.5-14.5 H Platelets panel - Blood by Automated count (test code = 38465-5) 124 K/UL 150.0-450.0 L Platelet mean volume [Entiti c volume] in Blood by Automated count (test code = 41783-4) 10.0 FL 7.4-10.4 N Neutrophils.segmented/100 leukocytes in Blood (test code = 10019-5) 53.3 % 40.0-75.0 N Lymphocytes Variant/100 leuk ocytes in Blood (test code = 24243-0) 33.9 % 24.0-44.0 N Lymphocytes+Monocytes/100 leukocytes in Blood (test code = 4662-3) 10.0 % 0.0-13.0 N Eosinophils [#/volume] in Bl ood (test code = 00291-9) 2.2 % 0.0-4.0 N Basophils [#/volume] in Bloo d (test code = 44777-9) 0.4 % 0.0-2.0 N Immature granulocytes/100 leukocytes in Blood (test code = 43541-0) 0.2 % 0.0-1.0 N Nucleated erythrocytes [#/vo lume] in Blood (test code = 11450-3) 0 /100 WBC N Neutrophils [#/volume] in Bl ood (test code = 54065-1) 2.4 K/UL 1.2-7.2 N [facility]PAP TEST, THINPREP, [id number] 16:02:24* Test Item Value Reference Range Interpretation Comme nts SOURCE: (test code = 8001) Cervical/Endoce rvical SLIDES: (test code = 8011) 1 LMP: (test code = 8021) SEE NOTE POST MENOPAUSAL SPECIMEN ADEQUACY: (test code = 88630) (NOTE) Satisfactory for evaluation. Endocervical cells/transformation zone component present. INTERPRETATION: (test code = 84064) NILM/NO EPITH. ABNORMALITY;SEE BELOW --- - NEGATIVE FOR INTRAEPITHELIAL LESION OR MALIGNANCY (NILM) ---- INSURANCE ADMINISTRATIVE ASSISTANT : (test code = 8101) Jami Smalls LOCATION: (test code = 99853) (NOTE) Specimens proces sed and interpreted at [facility], [address] [place] [address], , CLIA: [id number] CPT: (test code = 8140) (NOTE) 26718 UNLESS OTH ERWISE INDICATED, COMPUTER AIDED AND INSURANCE ADMINISTRATIVE ASSISTANT SCREENING PERFORMED. The Pap test is a screening test with an inherent, but low probability of error. Your patient should be reminded to consult you immediately if she experiences any suspicious signs or symptoms, regardless of her Pap test result. An alternate report format containing images or consolidated prior Pap history is available as applicable. HPV HIGH RISK WITH GENOTYPE, [id number] 15:53:52* Test Item Value Reference Range Interpretation Comme nts HPV HIGH RISK INTERP (test code = 02719) NEGATIVE NEGATIVE HPV 16 (test code = 84450) NEGATIVE HPV 18 (test code = 11304) NEGATIVE HPV, HR, OTHER GENOTYPES (test code = 05076) NEGATIVE Testing methodol ogy is real-time PCR [...] PERFORMED AT [facility] [address] [place] [id number] CARTON INSPECTOR: JATIN FELIPE M.D. [place] NUMBER [id number] [facility] [place]. [id number] HPV HIGH RISK WITH GENOTYPE, [id number] 00:00:00* Test Item Value Reference Range Interpretation Comme nts HPV HIGH RISK INTERP (test c ode = 93836) NEGATIVE HPV 16 (test code = 70374) NEGATIVE HPV 18 (test code = 46469) NEGATIVE HPV, HR, OTHER GENOTYPES (te st code = 04799) NEGATIVE PDFE (test code = PDFReport) PDF Henry ContrerasPAP TEST, THINPREP, [id number] 00:00:00* Test Item Value Reference Range Interpretation Comme nts SOURCE: (test code = 8001) Cervical/Endocervical SLIDES: (test code = 8011) 1 LMP: (test code = 8021) SEE NOTE SPECIMEN ADEQUACY: (test code = 05417) (NOTE) INTERPRETATION: (test code = 92338) NILM/NO EPITH. ABNORMALITY;SEE BELOW INSURANCE ADMINISTRATIVE ASSISTANT: (test code = 8101) Jami Smalls LOCATION: (test code = 95701) (NOTE) CPT: (test code = 8140) (NOTE) Henry ContrerasHPV HIGH RISK WITH GENOTYPE, [id number] 00:00:00* Test Item Value Reference Range Interpretation Comme nts HPV HIGH RISK INTERP (test c ode = 89734) NEGATIVE HPV 16 (test code = 62489) NEGATIVE HPV 18 (test code = 77445) NEGATIVE HPV, HR, OTHER GENOTYPES (te st code = 32744) NEGATIVE PDFE (test code = PDFReport) PDF Henry F AustinPAP TEST, THINPREP, [id number] 00:00:00* Test Item Value Reference Range Interpretation Comme nts SOURCE: (test code = 8001) Cervical/Endocervical SLIDES: (test code = 8011) 1 LMP: (test code = 8021) SEE NOTE SPECIMEN ADEQUACY: (test code = 35707) (NOTE) INTERPRETATION: (test code = 61820) NILM/NO EPITH. ABNORMALITY;SEE BELOW INSURANCE ADMINISTRATIVE ASSISTANT: (test code = 8101) Jami Smalls LOCATION: (test code = 44500) (NOTE) CPT: (test code = 8140) (NOTE) Henry Quiles AustinHPV HIGH RISK WITH GENOTYPE, [id number] 00:00:00* Test Item Value Reference Range Interpretation Comme nts HPV HIGH RISK INTERP (test c ode = 85076) NEGATIVE HPV 16 (test code = 83258) NEGATIVE HPV 18 (test code = 42228) NEGATIVE HPV, HR, OTHER GENOTYPES (te st code = 68207) NEGATIVE PDFE (test code = PDFReport) PDF Henry ContrerasPAP TEST, THINPREP, [id number] 00:00:00* Test Item Value Reference Range Interpretation Comme nts SOURCE: (test code = 8001) Cervical/Endocervical SLIDES: (test code = 8011) 1 LMP: (test code = 8021) SEE NOTE SPECIMEN ADEQUACY: (test code = 68749) (NOTE) INTERPRETATION: (test code = 82113) NILM/NO EPITH. ABNORMALITY;SEE BELOW INSURANCE ADMINISTRATIVE ASSISTANT: (test code = 8101) Jami Smalls LOCATION: (test code = 55157) (NOTE) CPT: (test code = 8140) (NOTE) Henry Quiles AustinHPV HIGH RISK WITH GENOTYPE, [id number] 00:00:00* Test Item Value Reference Range Interpretation Comme nts HPV HIGH RISK INTERP (test c ode = 06925) NEGATIVE HPV 16 (test code = 82036) NEGATIVE HPV 18 (test code = 21497) NEGATIVE HPV, HR, OTHER GENOTYPES (te st code = 57035) NEGATIVE PDFE (test code = PDFReport) PDF Henry Quiles AustinPAP TEST, THINPREP, [id number] 00:00:00* Test Item Value Reference Range Interpretation Comme nts SOURCE: (test code = 8001) Cervical/Endocervical SLIDES: (test code = 8011) 1 LMP: (test code = 8021) SEE NOTE SPECIMEN ADEQUACY: (test code = 02118) (NOTE) INTERPRETATION: (test code = 37061) NILM/NO EPITH. ABNORMALITY;SEE BELOW INSURANCE ADMINISTRATIVE ASSISTANT: (test code = 8101) Jami Smalls LOCATION: (test code = 99546) (NOTE) CPT: (test code = 8140) (NOTE) Henry Quiles AustinPAP TEST, THINPREP, IMAGED [ADDED]2023-10-10 00:00:00* Test Item Value Reference Range Interpretation Comme nts SOURCE: (test code = 8001) Unspecified SLIDES: (test code = 8011) 2 LMP: (test code = 8021) NOT GIVEN SPECIMEN ADEQUACY: (test code = 73457) (NOTE) INTERPRETATION: (test code = 94653) UNSATISFACTORY; SEE BELOW OTHER COMMENTS: (test code = 8081) (NOTE) INSURANCE ADMINISTRATIVE ASSISTANT: (test code = 8101) Jose Bustillos QC TECHNOLOGIST: (test code = 8111) RAUL Wilde(ASCP),[facility] LOCATION: (test code = 33384) (NOTE) CPT: (test code = 8140) (NOTE) Henry ContrerasHPV HIGH RISK IF ASC/LSIL, THINPREP [ADDED]2023-10-10 00:00:00* Test Item Value Reference Range Interpretation Comme nts HPV HIGH RISK IF ASC/LSIL, THINPREP (test code = 90891) CRITERIA NOT MET Henry Quiles AustinPAP TEST, THINPREP, IMAGED [ADDED]2023-10-10 00:00:00* Test Item Value Reference Range Interpretation Comme nts SOURCE: (test code = 8001) Unspecified SLIDES: (test code = 8011) 2 LMP: (test code = 8021) NOT GIVEN SPECIMEN ADEQUACY: (test code = 84647) (NOTE) INTERPRETATION: (test code = 70247) UNSATISFACTORY; SEE BELOW OTHER COMMENTS: (test code = 8081) (NOTE) INSURANCE ADMINISTRATIVE ASSISTANT: (test code = 8101) Jose Bustillos QC TECHNOLOGIST: (test code = 8111) RAUL Wilde(ASCP),[facility] LOCATION: (test code = 54735) (NOTE) CPT: (test code = 8140) (NOTE) Henry Quiles AustinHPV HIGH RISK IF ASC/LSIL, THINPREP [ADDED]2023-10-10 00:00:00* Test Item Value Reference Range Interpretation Comme nts HPV HIGH RISK IF ASC/LSIL, THINPREP (test code = 17053) CRITERIA NOT MET Henry Quiles AustinPAP TEST, THINPREP, IMAGED [ADDED]2023-10-10 00:00:00* Test Item Value Reference Range Interpretation Comme nts SOURCE: (test code = 8001) Unspecified SLIDES: (test code = 8011) 2 LMP: (test code = 8021) NOT GIVEN SPECIMEN ADEQUACY: (test code = 80187) (NOTE) INTERPRETATION: (test code = 23022) UNSATISFACTORY; SEE BELOW OTHER COMMENTS: (test code = 8081) (NOTE) INSURANCE ADMINISTRATIVE ASSISTANT: (test code = 8101) Jose Bustillos QC TECHNOLOGIST: (test code = 8111) Jason WhitmanSCT(ASCP),[facility] LOCATION: (test code = 25468) (NOTE) CPT: (test code = 8140) (NOTE) Henry Quiles AustinHPV HIGH RISK IF ASC/LSIL, THINPREP [ADDED]2023-10-10 00:00:00* Test Item Value Reference Range Interpretation Comme nts HPV HIGH RISK IF ASC/LSIL, THINPREP (test code = 22796) CRITERIA NOT MET Henry Quiles AustinPAP TEST, THINPREP, IMAGED [ADDED]2023-10-10 00:00:00* Test Item Value Reference Range Interpretation Comme nts SOURCE: (test code = 8001) Unspecified SLIDES: (test code = 8011) 2 LMP: (test code = 8021) NOT GIVEN SPECIMEN ADEQUACY: (test code = 16908) (NOTE) INTERPRETATION: (test code = 40345) UNSATISFACTORY; SEE BELOW OTHER COMMENTS: (test code = 8081) (NOTE) INSURANCE ADMINISTRATIVE ASSISTANT: (test code = 8101) Jose Bustillos QC TECHNOLOGIST: (test code = 8111) RAUL Wilde(ASCP),[facility] LOCATION: (test code = 13906) (NOTE) CPT: (test code = 8140) (NOTE) Henry Quiles AustinHPV HIGH RISK IF ASC/LSIL, THINPREP [ADDED]2023-10-10 00:00:00* Test Item Value Reference Range Interpretation Comme nts HPV HIGH RISK IF ASC/LSIL, THINPREP (test code = 28390) CRITERIA NOT MET Henry Quiles AustinGONORRHEA, NAAT, THINPREP [ADDED]2023-10-08 00:00:00* Test Item Value Reference Range Interpretation Comme nts GONORRHEA, NAAT, THINPREP (t est code = 69025) NEGATIVE Henry Quiles AustinCHLAMYDIA, NAAT, THINPREP [ADDED]2023-10-08 00:00:00* Test Item Value Reference Range Interpretation Comme nts CHLAMYDIA, NAAT, THINPREP (t est code = 32288) NEGATIVE PDFE (test code = PDFReport) PDF Henry Quiles AustinGONORRHEA, NAAT, THINPREP [ADDED]2023-10-08 00:00:00* Test Item Value Reference Range Interpretation Comme nts GONORRHEA, NAAT, THINPREP (t est code = 01358) NEGATIVE Henry Quiles AustinCHLAMYDIA, NAAT, THINPREP [ADDED]2023-10-08 00:00:00* Test Item Value Reference Range Interpretation Comme nts CHLAMYDIA, NAAT, THINPREP (t est code = 22360) NEGATIVE PDFE (test code = PDFReport) PDF Henry Quiles AustinGONORRHEA, NAAT, THINPREP [ADDED]2023-10-08 00:00:00* Test Item Value Reference Range Interpretation Comme nts GONORRHEA, NAAT, THINPREP (t est code = 01738) NEGATIVE Henry Quiles AustinCHLAMYDIA, NAAT, THINPREP [ADDED]2023-10-08 00:00:00* Test Item Value Reference Range Interpretation Comme nts CHLAMYDIA, NAAT, THINPREP (t est code = 29669) NEGATIVE PDFE (test code = PDFReport) PDF Henry Quiles AustinGONORRHEA, NAAT, THINPREP [ADDED]2023-10-08 00:00:00* Test Item Value Reference Range Interpretation Comme nts GONORRHEA, NAAT, THINPREP (t est code = 44624) NEGATIVE Henry SelfAMYDIA, NAAT, THINPREP [ADDED]2023-10-08 00:00:00* Test Item Value Reference Range Interpretation Comme shaina CHLAMYDIA, NAAT, THINPREP (t est code = 13485) NEGATIVE PDFE (test code = PDFReport) PDF Henry Griffin, THIRD [id number] 08:14:44* Test Item Value Reference Range Interpretation Comme nts TSH, THIRD GENERATION (test code = 2821) 5.200 UIU/ML 0.400-4.100 H UNLESS OTHERWISE INDICATED, ALL TESTING PERFORMED AT [facility] [address] [place] [address] CARTON INSPECTOR: JATIN FELIPE M.D. CLIA NUMBER [id number] [facility] [place]. [id number] 00:00:00* Test Item Value Reference Range Interpretation Comme nts TSH, THIRD GENERATION (test code = 2821) 5.200 UIU/ML Henry [id number] 00:00:00* Test Item Value Reference Range Interpretation Comme nts TSH, THIRD GENERATION (test code = 2821) 5.200 UIU/ML Henry [id number] 00:00:00* Test Item Value Reference Range Interpretation Comme nts TSH, THIRD GENERATION (test code = 2821) 5.200 UIU/ML Henry [id number] 00:00:00* Test Item Value Reference Range Interpretation Comme nts TSH, THIRD GENERATION (test code = 2821) 5.200 UIU/ML Henry MonroyH, THIRD [id number] 23:53:27* Test Item Value Reference Range Interpretation Comme nts TSH, THIRD GENERATION (test code = 2821) 11.100 UIU/ML 0.400-4.100 H COMPREHENSIVE METABOLIC [id number] 23:46:03* Test Item Value Reference Range Interpretation [...] 13 U/L 5-40 CBC W/AUTO DIFF WITH [id number] 08:48:44* Test Item Value Reference Range Interpretation [...] 0.00-0.10 ABS NUCLEATED RBCS (test code = 77635) 0.00 K/UL 0.00-0.11 UNLESS OTHER MONTOYA INDICATED, ALL TESTING PERFORMED AT [facility] [address] [place] [address] CARTON INSPECTOR: JATIN FELIPE M.D. CLIA NUMBER [id number] [facility] [place]. [id number] 00:00:00* Test Item Value Reference Range Interpretation Comme nts TSH, THIRD GENERATION (test code = 2821) 11.100 UIU/ML Henry ContrerasCBEllis W/AUTO [id number] 00:00:00* Test Item Value Reference Range Interpretation [...] ABS NUCLEATED RBCS (test cod e = 46332) 0.00 K/UL Henry ContrerasCOMPREHENSIVE METABOLIC [id number] 00:00:00* Test Item Value Reference Range Interpretation Comme nts GLUCOSE (test code = 2217) 97 MG/DL BUN (test code = 2208) 7 MG/DL CREATININE (test code = 2214) 0.61 MG/DL eGFR (2020 CKD-EPI) (test code = 50423) 110 ML/MIN/1.73 CALC BUN/CREAT (test code = [...] (test code = 2219) 13 U/L Henry [id number] 00:00:00* Test Item Value Reference Range Interpretation Comme nts TSH, THIRD GENERATION (test code = 2821) 11.100 UIU/ML Henry ContrerasCBC W/AUTO [id number] 00:00:00* Test Item Value Reference Range Interpretation [...] ABS NUCLEATED RBCS (test cod e = 75026) 0.00 K/UL Henry ContrerasCOMPREHENSIVE METABOLIC [id number] 00:00:00* Test Item Value Reference Range Interpretation Comme nts GLUCOSE (test code = 2217) 97 MG/DL BUN (test code = 2208) 7 MG/DL CREATININE (test code = 2214) 0.61 MG/DL eGFR (2020 CKD-EPI) (test code = 12647) 110 ML/MIN/1.73 CALC BUN/CREAT (test code = [...] (test code = 2219) 13 U/L Henry [id number] 00:00:00* Test Item Value Reference Range Interpretation Comme nts TSH, THIRD GENERATION (test code = 2821) 11.100 UIU/ML Henry ContrerasCBC W/AUTO [id number] 00:00:00* Test Item Value Reference Range Interpretation [...] ABS NUCLEATED RBCS (test cod e = 13182) 0.00 K/UL Henry ContrerasCOMPREHENSIVE METABOLIC [id number] 00:00:00* Test Item Value Reference Range Interpretation Comme nts GLUCOSE (test code = 2217) 97 MG/DL BUN (test code = 2208) 7 MG/DL CREATININE (test code = 2214) 0.61 MG/DL eGFR (2020 CKD-EPI) (test code = 62645) 110 ML/MIN/1.73 CALC BUN/CREAT (test code = [...] (test code = 2219) 13 U/L Henry [id number] 00:00:00* Test Item Value Reference Range Interpretation Comme nts TSH, THIRD GENERATION (test code = 2821) 11.100 UIU/ML Henry ContrerasCBC W/AUTO [id number] 00:00:00* Test Item Value Reference Range Interpretation [...] ABS NUCLEATED RBCS (test cod e = 89928) 0.00 K/UL Henry Quiles SlidellCOMPREHENSIVE METABOLIC [id number] 00:00:00* Test Item Value Reference Range Interpretation Comme nts GLUCOSE (test code = 2217) 97 MG/DL BUN (test code = 2208) 7 MG/DL CREATININE (test code = 2214) 0.61 MG/DL eGFR (2020 CKD-EPI) (test code = 63637) 110 ML/MIN/1.73 CALC BUN/CREAT (test code = [...] (test code = 2219) 13 U/L Henry BrarIfjecdAZHHTMIAUGT5474-25-88 01:13:06* Test Item Value Reference Range Interpretation Comme nts TRANSFERRIN (test code = 4936) 315 MG/DL 200-360 UNLESS OTHERWISE INDICATED, ALL TESTING PERFORMED AT [facility] [address] [place] [address] CARTON INSPECTOR: JATIN FELIPE M.D. CLIA NUMBER [id number] [facility] [place]. [id number] LIPID [id number] 01:12:48* Test Item Value Reference Range Interpretation [...] SPECIMENS. FOR MOREINFORMATION, SEE CLIENT ANNOUNCEMENT AT [email or web address] RISK RATIO LDL/HDL (test code = 2238) 1.34 RATIO <3.22 COMPREHENSIVE METABOLIC [id number] 01:12:48* Test Item Value Reference Range Interpretation Comme nts GLUCOSE (test code = 2217) 92 MG/DL 70-99 BUN (test code = 2208) 15 MG/DL 6-20 CREATININE (test code = 2214) 0.65 MG/DL 0.60-1.30 eGFR (2020 CKD-EPI) (test code = 03911) 108 ML/MIN/1.73 >60 CALC BUN/CREAT (test code [...] IRON BINDING CAPACITY AND IRON AND % [id number] 01:12:48* Test Item Value Reference Range Interpretation Comme nts IRON, SERUM (test code = 2221) 51 UG/DL 37-145 UNSATURATED IBC (test code = 47293) 356 UG/DL 112-347 H CALC TOTAL IBC (test code = 2076) 407 UG/DL 250-450 CALC % IRON SAT (test code = 2078) 13 % 20-50 L [id number] 00:59:24* Test Item Value Reference Range Interpretation Comme nts FERRITIN (test code = 2074) 20 NG/ML 13-200 LIPID [id number] 00:00:00* Test Item Value Reference Range Interpretation Comme nts CHOLESTEROL (test code = 2209) 191 MG/DL TRIGLYCERIDES (test code = 2) 89 MG/DL HDL CHOLESTEROL (test code = 0) 74 MG/DL CALC LDL CHOL (test code = 7) 99 MG/DL RISK RATIO LDL/HDL (test cod e = 2238) 1.34 RATIO Henry F AustinCOMPREHENSIVE METABOLIC [id number] 00:00:00* Test Item Value Reference Range Interpretation Comme nts GLUCOSE (test code = 7) 92 MG/DL BUN (test code = 2207) [...] AustinIRON BINDING CAPACITY AND IRON AND % [id number] 00:00:00* Test Item Value Reference Range Interpretation Comme nts IRON, SERUM (test code = 2221) 51 UG/DL UNSATURATED IBC (test code = ) 356 UG/DL CALC TOTAL IBC (test code = 2076) 407 UG/DL CALC % IRON SAT (test code = 2078) 13 % Henry Quiles [id number] 00:00:00* Test Item Value Reference Range Interpretation Comme nts FERRITIN (test code = 2074) 20 NG/ML Henry Quiles [id number] 00:00:00* Test Item Value Reference Range Interpretation Comme nts TRANSFERRIN (test code = 4936) 315 MG/DL Henry Quiles AustinLIPID [id number] 00:00:00* Test Item Value Reference Range Interpretation Comme nts CHOLESTEROL (test code = 2209) 191 MG/DL TRIGLYCERIDES (test code = 2) 89 MG/DL HDL CHOLESTEROL (test code = 0) 74 MG/DL CALC LDL CHOL (test code = 7) 99 MG/DL RISK RATIO LDL/HDL (test cod e = 2238) 1.34 RATIO Henry ContrerasCOMPREHENSIVE METABOLIC [id number] 00:00:00* Test Item Value Reference Range Interpretation Comme nts GLUCOSE (test code = 2217) 92 MG/DL BUN (test code = 2208) 15 MG/DL CREATININE (test code = 2214) 0.65 MG/DL eGFR (2020 CKD-EPI) (test code = 01187) 108 ML/MIN/1.73 CALC BUN/CREAT (test code = [...] ContrerasIRON BINDING CAPACITY AND IRON AND % [id number] 00:00:00* Test Item Value Reference Range Interpretation Comme nts IRON, SERUM (test code = 2221) 51 UG/DL UNSATURATED IBC (test code = 19641) 356 UG/DL CALC TOTAL IBC (test code = 7) 407 UG/DL CALC % IRON SAT (test code = 2078) 13 % Henry [id number] 00:00:00* Test Item Value Reference Range Interpretation Comme nts FERRITIN (test code = 2074) 20 NG/ML Henry C[id number] 00:00:00* Test Item Value Reference Range Interpretation Comme nts TRANSFERRIN (test code = 4936) 315 MG/DL Henry ContrerasLIPID [id number] 00:00:00* Test Item Value Reference Range Interpretation Comme nts CHOLESTEROL (test code = 2210) 191 MG/DL TRIGLYCERIDES (test code = 2232) 89 MG/DL HDL CHOLESTEROL (test code = 2220) 74 MG/DL CALC LDL CHOL (test code = 2237) 99 MG/DL RISK RATIO LDL/HDL (test cod e = 2238) 1.34 RATIO Henry ContrerasCOMPREHENSIVE METABOLIC [id number] 00:00:00* Test Item Value Reference Range Interpretation Comme nts GLUCOSE (test code = 2217) 92 MG/DL BUN (test code = 2208) 15 MG/DL CREATININE (test code = 2214) 0.65 MG/DL eGFR (2020 CKD-EPI) (test code = 36727) 108 ML/MIN/1.73 CALC BUN/CREAT (test code = [...] ContrerasIRON BINDING CAPACITY AND IRON AND % [id number] 00:00:00* Test Item Value Reference Range Interpretation Comme nts IRON, SERUM (test code = 2221) 51 UG/DL UNSATURATED IBC (test code = ) 356 UG/DL CALC TOTAL IBC (test code = 2076) 407 UG/DL CALC % IRON SAT (test code = 2078) 13 % Henry [id number] 00:00:00* Test Item Value Reference Range Interpretation Comme nts FERRITIN (test code = 2074) 20 NG/ML Henry Quiles [id number] 00:00:00* Test Item Value Reference Range Interpretation Comme nts TRANSFERRIN (test code = 4936) 315 MG/DL Henry Quiles AustinLIPID [id number] 00:00:00* Test Item Value Reference Range Interpretation Comme nts CHOLESTEROL (test code = 2210) 191 MG/DL TRIGLYCERIDES (test code = 2232) 89 MG/DL HDL CHOLESTEROL (test code = 2220) 74 MG/DL CALC LDL CHOL (test code = 2237) 99 MG/DL RISK RATIO LDL/HDL (test cod e = 2238) 1.34 RATIO Henry ContrerasCOMPREHENSIVE METABOLIC [id number] 00:00:00* Test Item Value Reference Range Interpretation Comme nts GLUCOSE (test code = 2217) 92 MG/DL BUN (test code = 2208) 15 MG/DL CREATININE (test code = 2214) 0.65 MG/DL eGFR (2020 CKD-EPI) (test code = 15454) 108 ML/MIN/1.73 CALC BUN/CREAT (test code = [...] AustinIRON BINDING CAPACITY AND IRON AND % [id number] 00:00:00* Test Item Value Reference Range Interpretation Comme nts IRON, SERUM (test code = 222) 51 UG/DL UNSATURATED IBC (test code = 86631) 356 UG/DL CALC TOTAL IBC (test code = 2076) 407 UG/DL CALC % IRON SAT (test code = 2078) 13 % Henry Quiles [id number] 00:00:00* Test Item Value Reference Range Interpretation Comme nts FERRITIN (test code = 2075) 20 NG/ML Henry [id number] 00:00:00* Test Item Value Reference Range Interpretation Comme shaina TRANSFERRIN (test code = 4936) 315 MG/DL Henry ContrerasHEMOGLOBIN [id number] 03:08:40* Test Item Value Reference Range Interpretation Comme nts HEMOGLOBIN A1c (test code = 00577) 5.5 % 4.2-5.6 CBC W/AUTO DIFF WITH [id number] 02:29:36* Test Item Value Reference Range Interpretation [...] = 1065) 0.0 /100 WBC'S See_Comment [[employer]] The system which generated this result [...] 0.00-0.10 ABS NUCLEATED RBCS (test code = 94527) 0.00 K/UL 0.00-0.11 CBC W/AUTO [id number] 00:00:00* Test Item Value Reference Range Interpretation [...] ABS NUCLEATED RBCS (test cod e = 23592) 0.00 K/UL Henry Quiles [place]MO[place]IN [id number] 00:00:00* Test Item Value Reference Range Interpretation Comme nts HEMOGLOBIN A1c (test code = 30278) 5.5 % Henry Qiules AustinCBC W/AUTO [id number] 00:00:00* Test Item Value Reference Range Interpretation [...] ABS NUCLEATED RBCS (test cod e = 61307) 0.00 K/UL Henry ContrerasHEMOGLOBIN [id number] 00:00:00* Test Item Value Reference Range Interpretation Comme nts HEMOGLOBIN A1c (test code = 21369) 5.5 % Henry Quiles [place]CBC W/AUTO [id number] 00:00:00* Test Item Value Reference Range Interpretation [...] ABS NUCLEATED RBCS (test cod e = 29928) 0.00 K/UL Henry ContrerasHEMOGLOBIN [id number] 00:00:00* Test Item Value Reference Range Interpretation Comme nts HEMOGLOBIN A1c (test code = 02370) 5.5 % Henry ContrerasCBC W/AUTO [id number] 00:00:00* Test Item Value Reference Range Interpretation [...] ABS NUCLEATED RBCS (test cod e = 48602) 0.00 K/UL Henry ContrerasHEMOGLOBIN [id number] 00:00:00* Test Item Value Reference Range Interpretation Comme nts HEMOGLOBIN A1c (test code = [address]) 5.5 % Henry ContrerasDRUGS OF [id number] 05:03:00* Test Item Value Reference Range Interpretation [...] 200 ng/mL Opiates 300 ng/mL URINALYSIS WITH [id number] 04:56:00* Test Item Value Reference Range Interpretation [...] (test code = USPERM) /HPF NONE URINE [id number] 04:53:00* Test Item Value Reference Range Interpretation [...] the FDA and the [employer] (CAP) are more stringent than those required for this test. Therefore, the result should be interpreted with caution and close attention to other clinical and epidemiological data [id number] 16:00:00* Test Item Value Reference Range Interpretation Comme nts SALICYLATE (test code = 94B) <3.0 mg/dL 15.0-30.0 L LIVER [id number] 15:49:00* Test Item Value Reference Range Interpretation [...] code = 30A) 16 IU/L See_Comment [Automated [employer]] The system which generated this result transmitted reference range: <=33. The reference range was not used to interpret this result as normal/abnormal. ALT (test code = 31A) <7 IU/L 10-49 L [id number] 15:48:00* Test Item Value Reference Range Interpretation [...] to interpret this result as normal/abnormal. 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 Old healed fractures of the distal tibia and fibular noted.Soft tissues: Unremarkable.IMPRESSION: No acute findings.Electronically signed by: Nikko Santiago MD 11/04/2022 3:10 PM CDT [id number] BEDSIDE [id number] 11:51:00* Test Item Value Reference Range Interpretation Comme nts GLUCOSE BEDSIDE TESTING (karen t code = GLUBED) 79 MG/DL 70-119 N GLUCOSE BEDSIDE [id number] 06:23:00* Test Item Value Reference Range Interpretation Comme nts GLUCOSE BEDSIDE TESTING (karen t code = GLUBED) 80 MG/DL 70-119 N BASIC METABOLIC [id number] 05:12:00* Test Item Value Reference Range Interpretation [...] 2.0 <2.0 indicates None DetectedPerformed At: [facility] [address] [place], [place] [id number] Michael Reeves MD Ph:[phone] GLUCOSE BEDSIDE [id number] 19:51:00* Test Item Value Reference Range Interpretation Comme nts GLUCOSE BEDSIDE TESTING (karen t code = GLUBED) 129 MG/DL 70-119 H OSMOLALITY [id number] 17:56:00* Test Item Value Reference Range Interpretation Comme nts OSMOLALITY SERUM (test code = OSMO) 269 mOsm/kg 275-300 L THYROID STIMULATING [id number] 17:56:00* Test Item Value Reference Range Interpretation Comme nts THYROID STIMULATING HORMONE (test code = TSH) 4.190 mc IU/ML 0.340-4.820 N GLUCOSE BEDSIDE [id number] 15:49:00* Test Item Value Reference Range Interpretation [...] code = VALP) 37.5 mcG/ML 50.0-100.0 L [id number] 14:26:00* Test Item Value Reference Range Interpretation Comme [facility] AMMONIA (test code = AMM) 29.0 mcMOL/L 11.0-32.0 N GLUCOSE BEDSIDE [id number] 11:51:00* Test Item Value Reference Range Interpretation Comme [facility] GLUCOSE BEDSIDE TESTING (karen t code = GLUBED) 88 MG/DL 70-119 N GLYCOSYLATED HEMOGLOBIN (HA1C)2022-09-18 06:53:00* Test Item Value Reference Range Interpretation Comme [facility] GLYCOSYLATED HEMOGLOBIN (HA1 C) (test code = GLYHGB) 5.2 % IS-A1C 4.5-5.6 N ESTIMATED AVERAGE [id number] 06:53:00* Test Item Value Reference Range Interpretation [...] to interpret this result as normal/abnormal. UR [id number] 21:28:00* Test Item Value Reference Range Interpretation Comme nts UR SODIUM RANDOM (test code = JESUSITA) 93 mmol/L 40-200 N UR POTASSIUM RANDOM (test code = KU) 54.8 mmol/L 25-125 N NO ESTABLISHED NORMAL RANGES FOR RANDOM SPECIMENS. UR CHLORIDE RANDOM (test code = CLU) 164 mmol/L 110-150 H UR OSMOLALITY [id number] 21:28:00* Test Item Value Reference Range Interpretation Comme nts UR OSMOLALITY RANDOM (test c ode = OSMOU) 475 mOsm/kg 100-1400 N CBC W/O [id number] 20:05:00* Test Item Value Reference Range Interpretation [...] = MPV) 9.5 fL 6.8-11.2 N LACTIC [id number] 19:35:00* Test Item Value Reference Range Interpretation Comme nts LACTIC ACID (test code = LACT) 1.0 mmol/L 0.4-2.0 N HCG SERUM [id number] 19:31:00* Test Item Value Reference Range Interpretation Comme nts HCG SERUM QUAL (test code = HCGQL) Negative SCREEN NEG - CT HEAD/BRAIN W/O [id number] 18:59:00 [facility]UM[facility]ON[facility] : 1975 Sex: FPatient Name: BHUMIKA JONES Unit No: [id number] EXAMS: CPT CODE: [id number] CT HEAD/BRAIN W/OCONT 08753 Location: H3 CT head, conducted on 09/17/22 [...] MALA Marie(Abner)(CT) CTDI: DLP: Trnscrpt: 09/17/2022 (1858) [email or web address] DENIZ Lugo NAME: ROBERT[address] PHYS: Valentina Mattson [place] [address] : 1975 AGE: 47 SEX: F LOC: JOSHUA PHONE #: [phone] EXAM DATE: 09/17/2022 STATUS: ADM IN FAX #: [phone] RAD #: D/C DT PAGE 1 Signed Report Patient Name: SILAS JONESPCION Unit No: [id number] EXAMS: CPT CODE: [id number] CT HEAD/BRAIN W/O CONT 46534 (Continued) Orig Print D/T: S: 09/17/2022 (190) DENIZ Lugo NAME: ROBERT[address] PHYS: Valentina Mattson [place] [address] : 1975 AGE: 47 SEX: F LOC: B.ERMED 20 PHONE #: [phone] EXAM DATE: 09/17/2022 STATUS: ADM IN FAX #: [phone] RAD #: D/C DT PAGE 2 Signed ReportURINALYSIS [id number] 16:28:00* Test Item Value Reference Range Interpretation [...] >0 /UL NONE-SQepi DRUGS OF ABUSE SCREEN [id number] 16:28:00* Test Item Value Reference Range Interpretation [...] interpret this result as normal/abnormal. TROP-I HIGH [id number] 16:26:00* Test Item Value Reference Range Interpretation [...] and URLs may vary bymethod. BASIC METABOLIC [id number] 16:25:00* Test Item Value Reference Range Interpretation [...] interpret this result as normal/abnormal. HEPATIC FUNCTION [id number] 16:25:00* Test Item Value Reference Range Interpretation [...] ode = CK) 92 Unit/L 26-192 N [id number] 16:25:00* Test Item Value Reference Range Interpretation Comme nts LIPASE (test code = LIP) 57 Unit/L 114-286 L - CT HEAD/BRAIN W/O [id number] 00:32:00 [facility] BHUM[facility]A JON[facility] : 1975 Sex: F Patient Name: BHUMIKA JONES Unit No: [id number] EXAMS: CPT CODE: [id number] CT HEAD/BRAIN W/O CONT 89778 EXAM: - CT HEAD/BRAIN W/O CONT LOCATION: [...] Technologist: Terry August CTDI: DLP: Trnscrpt: 09/17/2022(31) [email or web address] DENIZ Lugo NAME: ROBERT[address] PHYS: PATCA.02 - Asim Jack [place] [address] : 1975 AGE: 47 SEX: F LOC: BJordenERS PHONE #: [phone] EXAM DATE: 09/16/2022 STATUS: REG ER FAX #: [phone] RAD #: D/C DT PAGE 1 Signed Report Patient Name: BHUMIKA JONES Unit No: [id number] EXAMS: CPT CODE: [id number] CTHEAD/BRAIN W/O CONT 07568 (Continued) Orig Print D/T: S: 09/17/2022 (34) DEINZ Lugo NAME: ROBERT[address] PHYS: IGNACIO.02 - Asim Jack MDLon[place] [id number] :1975 AGE: 47 SEX: F LOC: B.ERS PHONE #: [phone] EXAM DATE: 09/16/2022 STATUS: REG ER FAX #: [phone] RAD #: D/C DT PAGE 2 Signed ReportTROP-I HIGH [id number] 00:13:00* Test Item Value Reference Range Interpretation [...] and URLs may vary bymethod. COMPREHENSIVE METABOLIC [id number] 00:11:00* Test Item Value Reference Range Interpretation [...] interpret this result as normal/abnormal. CBC W/AUTO [id number] 23:59:00* Test Item Value Reference Range Interpretation [...] K/mm3 0.0-0.05 N - XR CHEST 1 [id number] 23:34:00 [facility] BHUM[facility]A JON[facility] : 1975 Sex: F [place]: E St: PRE -- Patient Name: BHUMIKA JONES Unit No: [id number] EXAMS: CPT CODE: [id number] XR CHEST 1 V 88313 EXAMINATION: - XR CHEST 1 V CLINICAL [...] By: NadiyaJH12 Orig Print D/T: S: 09/16/2022 (740) DENIZ Lugo NAME: JONES[address] PHYS: IGNACIO.Deirdre - Asim Jack MD, [place] [address] : 1975 AGE: 47 SEX: F LOC: B.ERS PHONE #: [phone] EXAM DATE: 09/16/2022 STATUS: PRE ER FAX #: [phone] RAD NO: DC Dt: PAGE 1 Signed ReportCARBAMAZEPINE (TEGRETOL) 2022-09-15 06:12:00* Test Item Value Reference Range Interpretation Comme nts CARBAMAZEPINE (TEGRETOL) (test code = CARB) 1.5 ug/mL 4.0-12.0 L In conjunction w ith other antiepileptic drugs Therapeutic 4.0 - 8.0 Toxicity 9.0 - 12.0 Carbamazepine alone Therapeutic 8.0 - 12.0 Detection Limit = 2.0 <2.0 indicates None DetectedPerformed At: [facility] [address] [place], [place] [id number] Michael Reeves MD Ph:[phone] VALPROIC ACID (DEPAKENE)2022-09-15 06:12:00* Test Item Value Reference Range Interpretation Comme nts VALPROIC ACID (DEPAKENE) (te st code = VALP) 80.6 mcG/ML 50.0-100.0 N COMPREHENSIVE METABOLIC [id number] 06:00:00* Test Item Value Reference Range Interpretation [...] interpret this result as normal/abnormal. CBC W/AUTO [id number] 05:37:00* Test Item Value Reference Range Interpretation [...] NRBC#) 0.00 K/mm3 0.0-0.05 N GLUCOSE BEDSIDE [id number] 20:03:00* Test Item Value Reference Range Interpretation Comme nts GLUCOSE BEDSIDE TESTING (karen t code = GLUBED) 117 MG/DL 70-119 N DRUGS OF ABUSE SCREEN [id number] 11:42:00* Test Item Value Reference Range Interpretation [...] result as normal/abnormal. - CT HEAD/BRAIN W/O [id number] 11:37:00 [facility] BH[facility]ON[facility] : 1975 Sex: F Patient Name: BHUMIKA JONES Unit No: [id number] EXAMS: CPT CODE: [id number] CT HEAD/BRAIN W/O CONT 96508 EXAMINATION: - CT HEAD/BRAIN W/O CONT COMPARISON: None HISTORY: Seizure LOCATION CODE: [id number]: CT of the Brain without contrast. Axial [...] MD; Jim Jaimes MD Dictated Date/Time: 09/14/2022 (7266) Technologist: ASUNCION CASTELLANO CTDI: DLP: Trnscrpt: 09/14/2022 (7591) CliffordR.[email or web address] [facility] [place] NAME: [facility]A [facility] PHYS: Vladimir Menchaca MD [address] [place] [address] : 1975 AGE: 47 SEX: F [place], [place] [address] LOC: NEHA 10 PHONE #: [phone] EXAM DATE: 09/14/2022 STAT US: ADM IN FAX #: [phone] RAD #: D/C DT PAGE 1 Signed Report Patient Name: BHUMIKA JONES Unit No: [id number] EXAMS: CPT CODE: [id number] CT HEAD/BRAIN W/O CONT 29067 (Continued) Orig PrintD/T: S: 09/14/2022 (1140) [facility] NAME: [facility]BAI [facility] PHYS: Vladimir Menchaca MD [address] [place] [address] : 1975 AGE: 47 SEX: F [place], [place] [address] LOC: NEHA Cintron PHONE #: [phone] EXAM DATE: 09/14/2022 STATUS: ADM IN FAX #: [phone] RAD #: D/C DT PAGE 2 Signed [...] AVOIDED DUE TO POSSIBLE HEPARINCONTAMINATION HCG SERUM [id number] 06:51:00* Test Item Value Reference Range Interpretation [...] CK) 268 Unit/L 26-192 H CBC W/AUTO [id number] 03:43:00* Test Item Value Reference Range Interpretation [...] = NRBC#) 0.00 K/mm3 0.0-0.05 N URINALYSIS [id number] 03:41:00* Test Item Value Reference Range Interpretation [...] RARE /LPF NONE - XR CHEST 2 [id number] 02:06:00 [facility] BHUMIKA JONES : 1975 Sex: F FAX: Suleman Carvalho RTUH [phone] [place]: St: REG Patient Name: BHUMIKA JONES Unit No: [id number] EXAMS: CPT CODE: [id number] XR CHEST 2 V 12672 EXAM: - XR CHEST 2 V HISTORY: [...] 09/14/2022 (0209) DENIZ Lugo NAME: BHUMIKA JONES [address] [place] [address] Bl PHYS: GISEL CarvalhoSuleman Lugo, [place] [address] : 1975 AGE: 47 SEX: F LOC: MARCOS PHONE #: [phone] EXAM DATE: 09/14/2022 STATUS: REG ERFAX #: [phone] RAD NO: DC Dt: PAGE 1 Signed ReportCOMPREHENSIVE METABOLIC [id number] 12:49:00* Test Item Value Reference Range Interpretation [...] used to interpret this result as normal/abnormal. [id number] 12:49:00* Test Item Value Reference Range Interpretation Comme nts MAGNESIUM (test code = MAG) 1.7 MG/DL 1.6-2.6 N CBC W/AUTO [id number] 12:36:00* Test Item Value Reference Range Interpretation [...] RARE /LPF NONE DRUGS OF ABUSE SCREEN [id number] 00:33:00* Test Item Value Reference Range Interpretation [...] 300 ng/mL UA RFLX MICR CULT IF [id number] 00:30:00* Test Item Value Reference Range Interpretation [...] culture: Suprapubic PainSpecimen Description: CLEAN CATCHBASIC METABOLIC [id number] 00:18:00* Test Item Value Reference Range Interpretation [...] 8.9 mg/dl 8.0-10.5 N HEPATIC FUNCTION PANEL [id number] 00:18:00* Test Item Value Reference Range Interpretation [...] ALKP) 113 Units/L 50.0-136.0 N HCG SERUM [id number] 00:18:00* Test Item Value Reference Range Interpretation [facility]AL (test code = HCGQL) NEGATIVE NEGATIVE [id number] 00:18:00* Test Item Value Reference Range Interpretation [facility] ALCOHOL (test code = ALC) 0.00 gm/dL 0.00-0.00 N ETHYL ALCOHOL [facility] - INTERPRETATION: 0.050 GM/DL - NOT INTOXICATED 0.100 GM/DL - INTOXICATED 0.350-0.450 GM/DL - SEVERELY INTOXICATED 0.550 GM/DL- FATAL INTOXICATION Coronavirus 2019 nCoV [id number] 00:09:00* Test Item Value Reference Range Interpretation [facility] Coronavirus 2019 nCoV Bedside (test code = LZAEZ94BIKEC) Negative NEGATIVE Negative results should be treated as presumptive and ifinconsistent with clinical signs and symptoms, or necessaryfor patient management, should be tested with an alternativemolecular assay. Negative results do not preclude NHOS-JsM-4roloyzvzf and should not be used as the sole basis forpatient management decisions. Negative results should beconsidered in the context of a patient's recent exposures,history, presence of clinical signs and symptoms consistentwith COVID-19. CBC W/AUTO [id number] 23:58:00* Test Item Value Reference Range Interpretation [...] X10 3uL 0.00-0.01 N COMP. METABOLIC PANEL (16391)2022-09-07 02:12:41* Test Item Value Reference Range Interpretation Comme nts NA (test code = 3668559879) 133 mmol/L 135-145 L K (test code = 5438083812) 4.4 mmol/L 3.5-5.0 CL (test code = 3160904346) 102 mmol/L 98-108 CO2 TOTAL (test code = 0532936125) 25 mmol/L 23-31 AGAP (test code = 5911915318) 6 2-16 BUN (test code = 3654612016) 22 mg/dL 7-23 GLUCOSE (test code = 4519661070) 97 mg/dL 70-110 CREATININE (test code = 4004667925) 0.40 mg/dL 0.50-1.04 L TOTAL BILI (test code = 9911706842) 0.3 mg/dL 0.1-1.1 CALCIUM (test code = 8242222856) 8.9 mg/dL 8.6-10.6 T PROTEIN (test code = 9614183008) 7.7 g/dL 6.3-8.2 ALBUMIN (test code = 8415602835) 4.0 g/dL 3.5-5.0 ALK PHOS (test code = 6259669385) 104 U/L 34-122 ALTv (test code = 1742-6) 15 U/L 5-35 AST(SGOT) (test code = 6290493111) 22 U/L 13-40 eGFR (test code = 3399476585) 170.4 mL/min/1.73m2 HANNAH (test code = HANNAH) [...] imaging tests). Lab Interpretation (test code = 63251-7) Abnormal [facility] WITH [id number] 02:01:20* Test Item Value Reference Range Interpretation Comme nts WBC (test code = 6690-2) 6.17 See_Comment [[employer]ated [employer]] The system which generated this result transmitted reference range: 4.30 - 11.10 10*3/?L. The reference range was not used to interpret this result as normal/abnormal. RBC (test code = 789-8) 3.73 See_Comment L [[employer]ated [employer]] The system which generated this result [...] 32.9 g/dL 31.6-35.1 RDW-SD (test code = 39909-8) 48.1 fL 39.0-49.9 RDW-CV (test code = 788-0) 14.7 % 12.0-15.5 PLT (test code = 777-3) 272 See_Comment [Automated messa ge] The system which generated this result transmitted reference range: 166 - 358 10*3/?L. The reference range was not used to interpret this result as normal/abnormal. MPV (test code = 04390-7) 9.6 fL 9.5-12.9 NRBC/100 WBC (test code = 3196527707) 0.0 See_Comment [Automated me ssage] The system which generated this result transmitted reference range: 0.0 - 10.0 /100 WBCs. The reference range was not used to interpret this result as normal/abnormal. NRBC x10^3 (test code = 4518301522) See_Comment [Automated messa ge] The system which generated this result transmitted reference range: 10*3/?L. The reference range was not used to interpret this result as normal/abnormal. GRAN MAT (NEUT) % (test code = 770-8) 42.2 % IMM GRAN % (test code = 7454379397) 0.20 % LYMPH % (test code = 736-9) 38.2 % MONO % (test code = 5905-5) 12.6 % EOS % (test code = 713-8) 5.8 % BASO % (test code = 706-2) 1.0 % GRAN MAT x10^3(ANC) (test code = 2412905129) 2.60 10*3/uL 1.88-7.09 IMM GRAN x10^3 (test code = 7164363544) 0.00-0.06 LYMPH x10^3 (test code = 731-0) 2.36 10*3/uL 1.32-3.29 MONO x10^3 (test code = 742-7) 0.78 10*3/uL 0.33-0.92 EOS x10^3 (test code = 711-2) 0.36 10*3/uL 0.03-0.39 BASO x10^3 (test code = 704-7) 0.06 10*3/uL 0.01-0.07 Lab Interpretation (test code = 51094-4) Abnormal [facility]OVID[facility] by RT-PCR (HIGH RISK) 2020-08-19 00:00:00* Test Item Value Reference Range Interpretation Comme nts SARS-CoV-2 INTERPRETATION (t est code = 46372) NEGATIVE SOURCE (test code = 47339) NOT SPECIFIED Henry Quiles HtlqzxRQJJ-DkI-9 (COVID-19) by RT-PCR (HIGH RISK)2020-08-19 00:00:00* Test Item Value Reference Range Interpretation Comme nts SARS-CoV-2 INTERPRETATION (t est code = 57191) NEGATIVE SOURCE (test code = 63296) NOT SPECIFIED Henry Quiles HjpahvYQKE-TdQ-7 (COVID-19) by RT-PCR (HIGH RISK)2020-08-19 00:00:00* Test Item Value Reference Range Interpretation Comme nts SARS-CoV-2 INTERPRETATION (t est code = 31045) NEGATIVE SOURCE (test code = 73766) NOT SPECIFIED Henry Quiles LbkwoqWUXC-TeC-8 (COVID-19) by RT-PCR (HIGH RISK)2020-08-19 00:00:00* Test Item Value Reference Range Interpretation Comme nts SARS-CoV-2 INTERPRETATION (t est code = 97087) NEGATIVE SOURCE (test code = 09570) NOT SPECIFIED Henry Quiles AustinHPV HIGH RISK WITH GENOTYPE, [id number] 00:00:00* Test Item Value Reference Range Interpretation Comme nts HPV HIGH RISK INTERP (test c ode = 01766) NEGATIVE HPV 16 (test code = 71225) NEGATIVE HPV 18 (test code = 46335) NEGATIVE HPV, HR, OTHER GENOTYPES (te st code = 46526) NEGATIVE Henry ContrerasPAP TEST, THINPREP, [id number] 00:00:00* Test Item Value Reference Range Interpretation Comme nts SOURCE: (test code = 8001) Cervical/Endocervical SLIDES: (test code = 8011) 1 LMP: (test code = 8021) 06/2017 SPECIMEN ADEQUACY: (test code = 18882) (NOTE) INTERPRETATION: (test code = 84484) NILM/NO EPITH. ABNORMALITY;SEE BELOW INSURANCE ADMINISTRATIVE ASSISTANT: (test code = 8101) KANA Hamlin(ASCP) IAC LOCATION: (test code = 58466) (NOTE) CPT: (test code = 8140) (NOTE) Henry Quiles AustinHPV HIGH RISK WITH GENOTYPE, [id number] 00:00:00* Test Item Value Reference Range Interpretation Comme nts HPV HIGH RISK INTERP (test c ode = 80178) NEGATIVE HPV 16 (test code = 84369) NEGATIVE HPV 18 (test code = 80580) NEGATIVE HPV, HR, OTHER GENOTYPES (te st code = 47902) NEGATIVE Henry Quiles AustinPAP TEST, THINPREP, [id number] 00:00:00* Test Item Value Reference Range Interpretation Comme nts SOURCE: (test code = 8001) Cervical/Endocervical SLIDES: (test code = 8011) 1 LMP: (test code = 8021) 06/2017 SPECIMEN ADEQUACY: (test code = 97534) (NOTE) INTERPRETATION: (test code = 07324) NILM/NO EPITH. ABNORMALITY;SEE BELOW INSURANCE ADMINISTRATIVE ASSISTANT: (test code = 8101) [place](ASCP) IAC LOCATION: (test code = 47800) (NOTE) CPT: (test code = 8140) (NOTE) Henry F AustinHPV HIGH RISK WITH GENOTYPE, [id number] 00:00:00* Test Item Value Reference Range Interpretation Comme nts HPV HIGH RISK INTERP (test c ode = 24966) NEGATIVE HPV 16 (test code = 23960) NEGATIVE HPV 18 (test code = 69301) NEGATIVE HPV, HR, OTHER GENOTYPES (te st code = 18714) NEGATIVE Henry Quiles AustinPAP TEST, THINPREP, [id number] 00:00:00* Test Item Value Reference Range Interpretation Comme nts SOURCE: (test code = 8001) Cervical/Endocervical SLIDES: (test code = 8011) 1 LMP: (test code = 8021) 06/2017 SPECIMEN ADEQUACY: (test code = 78650) (NOTE) INTERPRETATION: (test code = 15589) NILM/NO EPITH. ABNORMALITY;SEE BELOW INSURANCE ADMINISTRATIVE ASSISTANT: (test code = 8101) [place](ASCP) IAC LOCATION: (test code = 49500) (NOTE) CPT: (test code = 8140) (NOTE) Henry F AustinHPV HIGH RISK WITH GENOTYPE, [id number] 00:00:00* Test Item Value Reference Range Interpretation Comme nts HPV HIGH RISK INTERP (test c ode = 40671) NEGATIVE HPV 16 (test code = 19613) NEGATIVE HPV 18 (test code = 31579) NEGATIVE HPV, HR, OTHER GENOTYPES (te st code = 58530) NEGATIVE Henry F AustinPAP TEST, THINPREP, [id number] 00:00:00* Test Item Value Reference Range Interpretation Comme nts SOURCE: (test code = 8001) Cervical/Endocervical SLIDES: (test code = 8011) 1 LMP: (test code = 8021) 06/2017 SPECIMEN ADEQUACY: (test code = 46271) (NOTE) INTERPRETATION: (test code = 45869) NILM/NO EPITH. ABNORMALITY;SEE BELOW INSURANCE ADMINISTRATIVE ASSISTANT: (test code = 8101) KANA Hamlin(ASCP) IAC LOCATION: (test code = 41616) (NOTE) CPT: (test code = 8140) (NOTE) Henry Quiles AustinCT HEAD WO [id number] 22:34:12Impression: 1. ?No acute intracranial process. 2. [...] physicalexamination.[facility]udaXR CERVICAL SPINE 2 [id number] 22:29:40No acute osseous abnormality. Preliminary Report Dictated [...] report.[facility] BudaCBC WITH [id number] 21:46:00* Test Item Value Reference Range Interpretation [...] 32.2 g/dL 31.6-35.1 RDW-SD (test code = 49382-3) 45.1 fL 39-49.9 RDW-CV (test code = 788-0) 14.6 % 12-15.5 PLT (test code = 777-3) See_Comment L [Automated messa ge] The system which generated this result transmitted reference range: 166 - 358 10*3/?L. The reference range was not used to interpret this result as normal/abnormal. MPV (test code = 74835-5) 9.0 fL 9.5-12.9 L NRBC/100 WBC (test code = 3105935846) See_Comment [Automated me ssage] The system which generated this result transmitted reference range: 0.0 - 10.0 /100 WBCs. The reference range was not used to interpret this result as normal/abnormal. NRBC x10^3 (test code = 3907363983) <0.01 See_Comment [Automated messa ge] The system which generated this result transmitted reference range: 10*3/?L. The reference range was not used to interpret this result as normal/abnormal. GRAN MAT (NEUT) % (test code = 770-8) 51.3 % IMM GRAN % (test code = 2604006034) 0.40 % LYMPH % (test code = 736-9) 24.4 % MONO % (test code = 5905-5) 23.1 % EOS % (test code = 713-8) 0.4 % BASO % (test code = 706-2) 0.4 % GRAN MAT x10^3(ANC) (test code = 3256227261) 2.48 10*3/uL 1.88-7.09 IMM GRAN x10^3 (test code = [id number]) <0.03 0-0.06 LYMPH x10^3 (test code = 731-0) 1.18 10*3/uL 1.32-3.29 L MONO x10^3 (test code = 742-7) 1.12 10*3/uL 0.33-0.92 H EOS x10^3 (test code = 711-2) <0.03 0.03-0.39 L BASO x10^3 (test code = 704-7) <0.03 0.01-0.07 Lab Interpretation (test code = 31170-5) [facility] [id number] 03:28:03No acute osseous abnormality. Preliminary Report Dictated [...] [facility] [id number] 08:03:22* Test Item Value Reference Range Interpretation Comme nts Valproic Acid Level (test co de = Valproic Acid Level) 57.6 ug/mL(g) 50.0-100.0 Hemoglobin [id number] 09:36:00* Test Item Value Reference Range Interpretation Comme nts Hemoglobin A1c (test code = Hemoglobin A1c) 5.0 % 4.8-5.9 Non Diabetic 4.8-5.9%Diabetic <7.0% CT Shoulder w/o Contrast [id number] 16:49:13Patient: BHUMIKA JONES Date/Time01/09/2019 16:14 CDTReason for [...] Adam FSigned (Electronic Signature): 01/09/2019 4:49 pmRPR [id number] 21:33:20* Test Item Value Reference Range Interpretation [...] 04-23-2020 N XR Shoulder Complete 2+ Views [id number] 15:41:25Patient: BHUMIKA JONES Date/Time01/07/2019 15:25 CDTReason for [...] CSigned (Electronic Signature): 01/07/2019 3:41 pmThyroid Stimulating [id number] 03:07:04* Test Item Value Reference Range Interpretation Comme nts TSH (test code = TSH) 9.650 mIU/mL 0.270-4.200 H Lipid [id number] 03:07:03* Test Item Value Reference Range Interpretation Comme nts Cholesterol Total (test code = Cholesterol Total) 199 mg/dL 0-200 RISK OF HEART DISEASEPublished by [place] [employer] Analyte Optimal Borderline Increased RiskCHOL [...] is LDL/HDL Ratio=LDL Calc/HDL Chol HCG Qualitative [id number] 02:33:13* Test Item Value Reference Range Interpretation Comme nts HCG, Serum Qual (test code = HCG, Serum Qual) Negative Lot # (test code = Lot #) [id number] N Expiration Dt (test code = Expiration Dt) 2020-04-23 N Neg Control (test code = Neg Control) Negative Pos Control (test code = Pos Control) Positive Internal QC (test code = Int ernal QC) Acceptable Drugs of Abuse Urine [id number] 18:58:11* Test Item Value Reference Range Interpretation [...] = Cannabinoid Screen Ur) Negative Negative Alcohol [id number] 18:47:34* Test Item Value Reference Range Interpretation Comme nts Ethanol Level (test code = Ethanol Level) <0.00 g/dL 0.00-0.01 Intoxicated 0.08 0 g/dL or more Ethanol Inst (test code = Ethanol Inst) <0 N Comprehensive Metabolic [id number] 18:47:33* Test Item Value Reference Range Interpretation [...] A/G Ratio) 1.0 ratio N Comprehensive Metabolic [id number] 18:47:33* Test Item Value Reference Range Interpretation [...] is not provided, and the patient is -[place], multiply by 1.212. If sex is not [...] the National Kidney Foundation, http://nkdep.nih.gov Comprehensive Metabolic [id number] 18:47:33* Test Item Value Reference Range Interpretation [...] is not provided, and the patient is -[place], multiply by 1.212. If sex is not [...] is not provided, and the patient is -[place], multiply by 1.212. If sex is not [...] Kidney Foundation, http://nkdep.nih.gov Complete Blood Count with [id number] 18:15:23* Test Item Value Reference Range Interpretation [...] code = IPF) 0 % N Automated [id number] 18:15:23* Test Item Value Reference Range Interpretation Comme nts Neutro Auto (test code = Sunny tro Auto) 42.1 % 36.0-70.0 Lymph Auto (test code = Lymph Auto) 40.0 % 12.0-44.0 [place] Auto (test code = [place] Auto) 12.2 % 0.0-11.0 H Eos, Auto (test code = Eos, Auto) 4.9 % 0.0-7.0 Basophil Auto (test code = B asophil Auto) 0.6 % 0.0-2.0 Neutro Absolute (test code = Neutro Absolute) 2.2 x10 1.6-7.4 Lymph Absolute (test code = Lymph Absolute) 2.06 x10 .50-4.60 [place] Absolute (test code = M richa Absolute) .63 x10 .00-1.20 Eos Absolute (test code = Eo s Absolute) 0.25 x10 0.00-0.74 Baso Absolute (test code = B aso Absolute) 0.03 x10 0.00-0.21 IG [id number] 18:15:23* Test Item Value Reference Range Interpretation Comme nts IG (test code = IG) 0.2 % 0.0-5.0 IG Abs (test code = IG Abs) 0 x10 N VALPROIC [id number] 00:00:00* Test Item Value Reference Range Interpretation Comme nts VALPROIC ACID (test code = 3025) 69.8 UG/ML Henry Quiles AustinVALPROIC [id number] 00:00:00* Test Item Value Reference Range Interpretation Comme nts VALPROIC ACID (test code = 3025) 69.8 UG/ML Henry Quiles AustinVALPROIC [id number] 00:00:00* Test Item Value Reference Range Interpretation Comme nts VALPROIC ACID (test code = 3025) 69.8 UG/ML Henry Quiles AustinVALPROIC [id number] 00:00:00* Test Item Value Reference Range Interpretation Comme nts VALPROIC ACID (test code = 3025) 69.8 UG/ML Henry Quiles AustinURINE CULTURE, NO [id number] 00:00:00* Test Item Value Reference Range Interpretation Comme nts URINE CULTURE, NO SENS (test code = 49789) SPECIMEN NUMBER: [id number] Henry Quiles AustinURINE CULTURE, NO [id number] 00:00:00* Test Item Value Reference Range Interpretation Comme nts URINE CULTURE, NO SENS (test code = 54421) SPECIMEN NUMBER: [id number] Henry Quiles AustinURINE CULTURE, NO [id number] 00:00:00* Test Item Value Reference Range Interpretation Comme nts URINE CULTURE, NO SENS (test code = 60371) SPECIMEN NUMBER: [id number] Henry Quiles AustinURINE CULTURE, NO [id number] 00:00:00* Test Item Value Reference Range Interpretation Comme nts URINE CULTURE, NO SENS (test code = 46206) SPECIMEN NUMBER: [id number] Henry ContrerasIRON BINDING CAPACITY AND IRON AND % [id number] 00:00:00* Test Item Value Reference Range Interpretation Comme nts IRON, SERUM (test code = 2222) 42 UG/DL UNSATURATED IBC (test code = 54910) 279 UG/DL CALC TOTAL IBC (test code = 2077) 321 UG/DL CALC % IRON SAT (test code = 2079) 13 % Henry [id number] 00:00:00* Test Item Value Reference Range Interpretation Comme nts FERRITIN (test code = 2075) 15 NG/ML Henry Quiles [id number] 00:00:00* Test Item Value Reference Range Interpretation Comme nts TRANSFERRIN (test code = 4936) 269 MG/DL Henry F AustinFOLIC [id number] 00:00:00* Test Item Value Reference Range Interpretation Comme nts FOLIC ACID (test code = 2695) 5.4 UG/L Henry F AustinIRON BINDING CAPACITY AND IRON AND % [id number] 00:00:00* Test Item Value Reference Range Interpretation Comme nts IRON, SERUM (test code = 2222) 42 UG/DL UNSATURATED IBC (test code = 65667) 279 UG/DL CALC TOTAL IBC (test code = 2077) 321 UG/DL CALC % IRON SAT (test code = 2079) 13 % Henry F [id number] 00:00:00* Test Item Value Reference Range Interpretation Comme nts FERRITIN (test code = 2075) 15 NG/ML Henry F [id number] 00:00:00* Test Item Value Reference Range Interpretation Comme nts TRANSFERRIN (test code = 4936) 269 MG/DL Henry F AustinFOLIC [id number] 00:00:00* Test Item Value Reference Range Interpretation Comme nts FOLIC ACID (test code = 2695) 5.4 UG/L Henry F AustinIRON BINDING CAPACITY AND IRON AND % [id number] 00:00:00* Test Item Value Reference Range Interpretation Comme nts IRON, SERUM (test code = 2222) 42 UG/DL UNSATURATED IBC (test code = 02300) 279 UG/DL CALC TOTAL IBC (test code = 2077) 321 UG/DL CALC % IRON SAT (test code = 2079) 13 % Henry F [id number] 00:00:00* Test Item Value Reference Range Interpretation Comme nts FERRITIN (test code = 2075) 15 NG/ML Henry F [id number] 00:00:00* Test Item Value Reference Range Interpretation Comme nts TRANSFERRIN (test code = 4936) 269 MG/DL Henry F AustinFOLIC [id number] 00:00:00* Test Item Value Reference Range Interpretation Comme nts FOLIC ACID (test code = 2695) 5.4 UG/L Henry F AustinIRON BINDING CAPACITY AND IRON AND % [id number] 00:00:00* Test Item Value Reference Range Interpretation Comme nts IRON, SERUM (test code = 2222) 42 UG/DL UNSATURATED IBC (test code = 75888) 279 UG/DL CALC TOTAL IBC (test code = 2077) 321 UG/DL CALC % IRON SAT (test code = 2079) 13 % Henry [id number] 00:00:00* Test Item Value Reference Range Interpretation Comme nts FERRITIN (test code = 2075) 15 NG/ML Henry Quiles [id number] 00:00:00* Test Item Value Reference Range Interpretation Comme nts TRANSFERRIN (test code = 4936) 269 MG/DL Henry Quiles AustinFOLIC [id number] 00:00:00* Test Item Value Reference Range Interpretation Comme nts FOLIC ACID (test code = 2695) 5.4 UG/L Henry ContrerasCULTURE, URINE [ADDED]2018-06-12 00:00:00* Test Item Value Reference Range Interpretation Comme nts CULTURE, URINE (test code = 01066) SPECIMEN NUMBER: [id number] Henry Quiles AustinCULTURE, URINE [ADDED]2018-06-12 00:00:00* Test Item Value Reference Range Interpretation Comme nts CULTURE, URINE (test code = 20066) SPECIMEN NUMBER: [id number] Henry Quiles AustinCULTURE, URINE [ADDED]2018-06-12 00:00:00* Test Item Value Reference Range Interpretation Comme nts CULTURE, URINE (test code = 25504) SPECIMEN NUMBER: [id number] Henry Quiles AustinCULTURE, URINE [ADDED]2018-06-12 00:00:00* Test Item Value Reference Range Interpretation Comme nts CULTURE, URINE (test code = 39968) SPECIMEN NUMBER: [id number] Henry Quiles AustinCBC W/AUTO [id number] 00:00:00* Test Item Value Reference Range Interpretation [...] 1015) 184 K/UL Henry Quiles BenCOMPREHENSIVE METABOLIC [id number] 00:00:00* Test Item Value Reference Range Interpretation Comme nts GLUCOSE (test code = 2217) 86 MG/DL BUN (test code = 2208) 16 MG/DL CREATININE (test code = 2214) 0.45 MG/DL eGFR AMER. (test cod e = 77860) 141 ML/MIN/1.73 eGFR NON- AMER. (test code = 92929) 122 ML/MIN/1.73 CALC BUN/CREAT (test code = [...] = 2219) 17 U/L Henry Quiles BenVALPROIC [id number] 00:00:00* Test Item Value Reference Range Interpretation Comme nts VALPROIC ACID (test code = 3025) 100.9 UG/ML Henry Etta BenCBC W/AUTO [id number] 00:00:00* Test Item Value Reference Range Interpretation [...] = 1015) 184 K/UL Henry ContrerasCOMPREHENSIVE METABOLIC [id number] 00:00:00* Test Item Value Reference Range Interpretation Comme nts GLUCOSE (test code = 2217) 86 MG/DL BUN (test code = 2208) 16 MG/DL CREATININE (test code = 2214) 0.45 MG/DL eGFR AMER. (test cod e = 79877) 141 ML/MIN/1.73 eGFR NON- AMER. (test code = 95513) 122 ML/MIN/1.73 CALC BUN/CREAT (test code = [...] code = 2219) 17 U/L Henry ContrerasVALPROIC [id number] 00:00:00* Test Item Value Reference Range Interpretation Comme nts VALPROIC ACID (test code = 3025) 100.9 UG/ML Henry Quiles BenCBC W/AUTO [id number] 00:00:00* Test Item Value Reference Range Interpretation [...] 1015) 184 K/UL Henry Quiles BenCOMPREHENSIVE METABOLIC [id number] 00:00:00* Test Item Value Reference Range Interpretation Comme nts GLUCOSE (test code = 2217) 86 MG/DL BUN (test code = 2208) 16 MG/DL CREATININE (test code = 2214) 0.45 MG/DL eGFR AMER. (test cod e = 95211) 141 ML/MIN/1.73 eGFR NON- AMER. (test code = 43646) 122 ML/MIN/1.73 CALC BUN/CREAT (test code = [...] code = 2219) 17 U/L Henry ContrerasVALPROIC [id number] 00:00:00* Test Item Value Reference Range Interpretation Comme nts VALPROIC ACID (test code = 3025) 100.9 UG/ML Henry ContrerasCBC W/AUTO [id number] 00:00:00* Test Item Value Reference Range Interpretation [...] = 1015) 184 K/UL Henry ContrerasCOMPREHENSIVE METABOLIC [id number] 00:00:00* Test Item Value Reference Range Interpretation Comme nts GLUCOSE (test code = 2217) 86 MG/DL BUN (test code = 2208) 16 MG/DL CREATININE (test code = 2214) 0.45 MG/DL eGFR AMER. (test cod e = 59227) 141 ML/MIN/1.73 eGFR NON- AMER. (test code = 97006) 122 ML/MIN/1.73 CALC BUN/CREAT (test code = [...] code = 2219) 17 U/L Henry ContrerasVALPROIC [id number] 00:00:00* Test Item Value Reference Range Interpretation Comme nts VALPROIC ACID (test code = 3025) 100.9 UG/ML Henry ContrerasPAP TEST, THINPREP, [id number] 00:00:00* Test Item Value Reference Range Interpretation Comme nts SOURCE: (test code = 8001) Cervical/Endocervical SLIDES: (test code = 8011) 1 LMP: (test code = 8021) 03/2017 SPECIMEN ADEQUACY: (test code = 32229) (NOTE) INTERPRETATION: (test code = 70664) NO EPITHELIAL ABNORMALITY SEE BELOW INSURANCE ADMINISTRATIVE ASSISTANT: (test code = 8101) KANA Merida(ASCP)IAC LOCATION: (test code = 58638) (NOTE) CPT: (test code = 8140) (NOTE) Henry ContrerasHPV HIGH RISK WITH GENOTYPE, [id number] 00:00:00* Test Item Value Reference Range Interpretation Comme nts HPV HIGH RISK INTERP (test c ode = 67195) NEGATIVE HPV 16 (test code = 13145) NEGATIVE HPV 18 (test code = 49701) NEGATIVE HPV, HR, OTHER GENOTYPES (te st code = 85619) NEGATIVE Henry ContrerasPAP TEST, THINPREP, [id number] 00:00:00* Test Item Value Reference Range Interpretation Comme nts SOURCE: (test code = 8001) Cervical/Endocervical SLIDES: (test code = 8011) 1 LMP: (test code = 8021) 03/2017 SPECIMEN ADEQUACY: (test code = 01845) (NOTE) INTERPRETATION: (test code = 40398) NO EPITHELIAL ABNORMALITY SEE BELOW INSURANCE ADMINISTRATIVE ASSISTANT: (test code = 8101) KANA Merida(ASCP)IAC LOCATION: (test code = 09556) (NOTE) CPT: (test code = 8140) (NOTE) Henry Quiles AustinHPV HIGH RISK WITH GENOTYPE, [id number] 00:00:00* Test Item Value Reference Range Interpretation Comme nts HPV HIGH RISK INTERP (test c ode = 23449) NEGATIVE HPV 16 (test code = 89840) NEGATIVE HPV 18 (test code = 14206) NEGATIVE HPV, HR, OTHER GENOTYPES (te st code = 78223) NEGATIVE Henry ContrerasPAP TEST, THINPREP, [id number] 00:00:00* Test Item Value Reference Range Interpretation Comme nts SOURCE: (test code = 8001) Cervical/Endocervical SLIDES: (test code = 8011) 1 LMP: (test code = 8021) 03/2017 SPECIMEN ADEQUACY: (test code = 66096) (NOTE) INTERPRETATION: (test code = 93226) NO EPITHELIAL ABNORMALITY SEE BELOW INSURANCE ADMINISTRATIVE ASSISTANT: (test code = 8101) KANA Merida(ASCP)IAC LOCATION: (test code = 39097) (NOTE) CPT: (test code = 8140) (NOTE) Henry Quiles AustinHPV HIGH RISK WITH GENOTYPE, [id number] 00:00:00* Test Item Value Reference Range Interpretation Comme nts HPV HIGH RISK INTERP (test c ode = 99425) NEGATIVE HPV 16 (test code = 61243) NEGATIVE HPV 18 (test code = 21954) NEGATIVE HPV, HR, OTHER GENOTYPES (te st code = 57746) NEGATIVE Henry ContrerasPAP TEST, THINPREP, [id number] 00:00:00* Test Item Value Reference Range Interpretation Comme nts SOURCE: (test code = 8001) Cervical/Endocervical SLIDES: (test code = 8011) 1 LMP: (test code = 8021) 03/2017 SPECIMEN ADEQUACY: (test code = 77151) (NOTE) INTERPRETATION: (test code = 71445) NO EPITHELIAL ABNORMALITY SEE BELOW INSURANCE ADMINISTRATIVE ASSISTANT: (test code = 8101) KANA Merida(ASCP)IAC LOCATION: (test code = 01611) (NOTE) CPT: (test code = 8140) (NOTE) Henry Quiles AustinHPV HIGH RISK WITH GENOTYPE, [id number] 00:00:00* Test Item Value Reference Range Interpretation Comme nts HPV HIGH RISK INTERP (test c ode = 26690) NEGATIVE HPV 16 (test code = 32271) NEGATIVE HPV 18 (test code = 31443) NEGATIVE HPV, HR, OTHER GENOTYPES (te st code = 68986) NEGATIVE Henry F AustinHIV AB/AG COMBO RFLX [id number] 00:00:00* Test Item Value Reference Range Interpretation Comme nts HIV 1/2 4TH GEN, RFLX CONF ( test code = 3514) NON-REACTIVE Henry F AustinGC AND CHLAMYDIA AMPLIFIED, [id number] 00:00:00* Test Item Value Reference Range Interpretation Comme nts GONORRHEA, TMA (test code = 31857) NEGATIVE CHLAMYDIA, TMA (test code = 36904) NEGATIVE Henry F AustinGC AND CHLAMYDIA AMPLIFIED, [id number] 00:00:00* Test Item Value Reference Range Interpretation Comme nts GONORRHEA, TMA (test code = 76883) NEGATIVE CHLAMYDIA, TMA (test code = 69164) NEGATIVE Henry F AustinHIV AB/AG COMBO RFLX [id number] 00:00:00* Test Item Value Reference Range Interpretation Comme nts HIV 1/2 4TH GEN, RFLX CONF ( test code = 3514) NON-REACTIVE Henry F AustinHIV AB/AG COMBO RFLX [id number] 00:00:00* Test Item Value Reference Range Interpretation Comme nts HIV 1/2 4TH GEN, RFLX CONF ( test code = 3514) NON-REACTIVE Henry F AustinGC AND CHLAMYDIA AMPLIFIED, [id number] 00:00:00* Test Item Value Reference Range Interpretation Comme nts GONORRHEA, TMA (test code = 73839) NEGATIVE CHLAMYDIA, TMA (test code = 04839) NEGATIVE Henry F AustinGC AND CHLAMYDIA AMPLIFIED, [id number] 00:00:00* Test Item Value Reference Range Interpretation Comme nts GONORRHEA, TMA (test code = 90677) NEGATIVE CHLAMYDIA, TMA (test code = 87356) NEGATIVE Henry F AustinHIV AB/AG COMBO RFLX [id number] 00:00:00* Test Item Value Reference Range Interpretation Comme nts HIV 1/2 4TH GEN, RFLX CONF ( test code = 3514) NON-REACTIVE Henry ContrerasLIPID [id number] 00:00:00* Test Item Value Reference Range Interpretation Comme nts CHOLESTEROL (test code = 2210) 186 MG/DL TRIGLYCERIDES (test code = 2232) 131 MG/DL HDL CHOLESTEROL (test code = 2220) 67 MG/DL CALC LDL CHOL (test code = 2237) 93 MG/DL RISK RATIO LDL/HDL (test cod e = 2238) 1.39 RATIO Henry ContrerasCBC W/AUTO [id number] 00:00:00* Test Item Value Reference Range Interpretation [...] code = 1015) 152 K/UL Henry ContrerasHEMOGLOBIN [id number] 00:00:00* Test Item Value Reference Range Interpretation Comme shaina HEMOGLOBIN A1c (test code = 31039) 5.2 % Henry [id number] 00:00:00* Test Item Value Reference Range Interpretation Comme nts TSH (test code = 2821) 2.020 UIU/ML Henry ContrerasCOMPREHENSIVE METABOLIC [id number] 00:00:00* Test Item Value Reference Range Interpretation Comme nts GLUCOSE (test code = 2217) 90 MG/DL BUN (test code = 2208) 21 MG/DL CREATININE (test code = 2214) 0.42 MG/DL eGFR AMER. (test cod e = 25889) 145 ML/MIN/1.73 eGFR NON- AMER. (test code = 68254) 126 ML/MIN/1.73 CALC BUN/CREAT (test code = [...] code = 2219) <5 U/L Henry Quiles SlidellLIPID [id number] 00:00:00* Test Item Value Reference Range Interpretation Comme nts CHOLESTEROL (test code = 2210) 186 MG/DL TRIGLYCERIDES (test code = 2232) 131 MG/DL HDL CHOLESTEROL (test code = 2220) 67 MG/DL CALC LDL CHOL (test code = 2237) 93 MG/DL RISK RATIO LDL/HDL (test cod e = 2238) 1.39 RATIO Henry ContrerasCBC W/AUTO [id number] 00:00:00* Test Item Value Reference Range Interpretation [...] code = 1015) 152 K/UL Henry ContrerasHEMOGLOBIN [id number] 00:00:00* Test Item Value Reference Range Interpretation Comme shaina HEMOGLOBIN A1c (test code = 39635) 5.2 % Henry [id number] 00:00:00* Test Item Value Reference Range Interpretation Comme shaina TSH (test code = 2821) 2.020 UIU/ML Henry ContrerasCOMPREHENSIVE METABOLIC [id number] 00:00:00* Test Item Value Reference Range Interpretation Comme nts GLUCOSE (test code = 2217) 90 MG/DL BUN (test code = 2208) 21 MG/DL CREATININE (test code = 2214) 0.42 MG/DL eGFR AMER. (test cod e = 47653) 145 ML/MIN/1.73 eGFR NON- AMER. (test code = 51615) 126 ML/MIN/1.73 CALC BUN/CREAT (test code = [...] code = 2219) <5 U/L Henry ContrerasLIPID [id number] 00:00:00* Test Item Value Reference Range Interpretation Comme nts CHOLESTEROL (test code = 2210) 186 MG/DL TRIGLYCERIDES (test code = 2232) 131 MG/DL HDL CHOLESTEROL (test code = 2220) 67 MG/DL CALC LDL CHOL (test code = 2237) 93 MG/DL RISK RATIO LDL/HDL (test cod e = 2238) 1.39 RATIO Henry ContrerasCBC W/AUTO [id number] 00:00:00* Test Item Value Reference Range Interpretation [...] code = 1015) 152 K/UL Henry ContrerasHEMOGLOBIN [id number] 00:00:00* Test Item Value Reference Range Interpretation Comme shaina HEMOGLOBIN A1c (test code = 64913) 5.2 % Henry [id number] 00:00:00* Test Item Value Reference Range Interpretation Comme nts TSH (test code = 2821) 2.020 UIU/ML Henry ContrerasCOMPREHENSIVE METABOLIC [id number] 00:00:00* Test Item Value Reference Range Interpretation Comme nts GLUCOSE (test code = 2217) 90 MG/DL BUN (test code = 2208) 21 MG/DL CREATININE (test code = 2214) 0.42 MG/DL eGFR AMER. (test cod e = 02453) 145 ML/MIN/1.73 eGFR NON- AMER. (test code = 89802) 126 ML/MIN/1.73 CALC BUN/CREAT (test code = [...] code = 2219) <5 U/L Henry ContrerasLIPID [id number] 00:00:00* Test Item Value Reference Range Interpretation Comme nts CHOLESTEROL (test code = 2210) 186 MG/DL TRIGLYCERIDES (test code = 2232) 131 MG/DL HDL CHOLESTEROL (test code = 2220) 67 MG/DL CALC LDL CHOL (test code = 2237) 93 MG/DL RISK RATIO LDL/HDL (test cod e = 2238) 1.39 RATIO Henry ContrerasCBC W/AUTO [id number] 00:00:00* Test Item Value Reference Range Interpretation [...] code = 1015) 152 K/UL Henry ContrerasHEMOGLOBIN [id number] 00:00:00* Test Item Value Reference Range Interpretation Comme shaina HEMOGLOBIN A1c (test code = 58154) 5.2 % Henry [id number] 00:00:00* Test Item Value Reference Range Interpretation Comme shaina TSH (test code = 2821) 2.020 UIU/ML Henry ContrerasCOMPREHENSIVE METABOLIC [id number] 00:00:00* Test Item Value Reference Range Interpretation Comme nts GLUCOSE (test code = 2217) 90 MG/DL BUN (test code = 2208) 21 MG/DL CREATININE (test code = 2214) 0.42 MG/DL eGFR AMER. (test cod e = 53932) 145 ML/MIN/1.73 eGFR NON- AMER. (test code = 06783) 126 ML/MIN/1.73 CALC BUN/CREAT (test code = [...] Contreras Notes Date/Time Note Provider Source Henry Goldberg Ben [facility]2024-09-02 00:00:00 [facility] 04:23:47 PATIENT OPEN ORDERS Code System Description Frequency Occurrences Priority [place] [id number] [facility] EKG study ONE TIME 0 Stat November 24, 2023 12:29:00 AM [facility] MAGALIE BRAVO [id number] on November 24, 2023 12:29:00 AM [facility] SCHEDULED PROCEDURES Code System Description Status Scheduled Date Updated By Patient scheduled procedure information is not available. [facility]2024-06-04 04:23:47 CARE sr. strategic sourcing manager Role on Team Status Start Date End Date Update d By NO PCP Referring normal November 24, 2023 2:17:11 AM [facility] November 25, 2023 12:04:00 AM [facility] [id number] on November 24, 2023 2:17:11 AM [facility] MAGALIE BRAVO Attending normal November 24, 2023 2:17:11 AM [place] November 25, 2023 12:04:00 AM UTC [id number] on November 24, 2023 2:17:11 AM [facility] MAGALIE BRAVO Admitting normal November 24, 2023 2:17:11 AM UTC November 25, 2023 12:04:00 AM UTC [id number] on November 24, 2023 2:17:11 AM UTC NO PCP PCP normal November 24, 2023 2:17:11 AM [place] November 25, 2023 12:04:00 AM UTC [id number] on November 24, 2023 2:17:11 AM [facility] [place]2024-06-03 00:00[facility]00 [facility]13 PATIENT OPEN ORDERS Code System Description Frequency Occurrences Priority [place] [id number] [facility] EKG study ONE TIME 0 Stat November 24, 2023 12:29:00 AM [facility] MEJIASWiliam BRAVO [id number] on November 24, 2023 12:29:00 AM [place] SCHEDULED PROCEDURES Code System Description Status Scheduled Date Updated By Patient scheduled procedure information is not available. [facility]2024-06-02 19:05:13 CARE sr. strategic sourcing manager Role on Team Status Start Date End Date Update d By NO PCP Referring normal November 24, 2023 2:17:11 AM [facility] November 25, 2023 12:04:00 AM [facility] [id number] on November 24, 2023 2:17:11 AM [facility] MAGALIE BRAVO Attending normal November 24, 2023 2:17:11 AM [facility] November 25, 2023 12:04:00 AM UTC [id number] on November 24, 2023 2:17:11 AM [facility] MAGALIE BRAVO Admitting normal November 24, 2023 2:17:11 AM [place] November 25, 2023 12:04:00 AM [place] [id number] on November 24, 2023 2:17:11 AM UTC NO PCP PCP normal November 24, 2023 2:17:11 AM UT November 25, 2023 12:04:00 AM UT [id number] on November 24, 2023 2:17:11 AM [facility] [place]2024-06-01 21:59:03[place] [address] DIAGNOSTIC IMAGING REPORT Patient Name: ROBERT, CONCEPTION Date of Service: 11-23-2023 Age: 48 Sex: F Order #: [id number] Room: [facility] : 1975 X-Ray Number: [id number] Hospital Number: [id number] Admitting Physician: LAWRENCE MEJIAS Ordering Physician: LAWRENCE [...] 21:59:03 Legally authenticated by ANGIE PHAM 2023-11-23 21:59:03[facility] [id number] 21:53:03[place] [address] DIAGNOSTIC IMAGING REPORT Patient Name: ROBERT, CONCEPTION Date of Service: 11-23-2023 Age: 48 Sex: F Order #: [id number] Room: [facility] : 1975 X-Ray Number: [id number] Hospital Number: [id number] Admitting Physician: LAWRENCE MEJIAS Ordering Physician: LAWRENCE [...] 21:53:03ALON DEL RIO 2023-10-25 00:00:00 [facility] 09[facility]45:21 We are unable to release any pt information with out prior pt permission. However, Risperdal is not generally managed by neurology and would be best managed by psychiatrist. [facility]2024-04-09 16:15:28 Copied from [facility] #[id number]. Topic: Clinical - Order >> Oct 01, 2023 4:13 PM Patient Produce Runner wrote: [facility] is calling regarding medication risperdal they were givng her 3mg and stating had dropped it to 1mg trying to confirm change Call [phone] [facility] [id number] 12:29:00 [facility] ([facility]) Hospitalist Discharge Summary REPORT#:[id number] REPORT STATUS: Signed DATE:10/11/22 TIME: 1228 PATIENT: BHUMIKA JONES UNIT #: [id number] ROOM/BED: [place] [address] : 74 AGE: 47 SEX: F ATTEND: [...] patient this morning with the help of district fire chief and she said that he lives with [...] refill, normal range of motion, no edema Neuro/CONTINUOUS DRYOUT OPERATOR: altered mental status, alert Discharge Instructions PCP Discharge to: Home/Self Care Additional Discharge Routines: PCP Follow-Up Diet: Resume Home Diet/Feeds Activity: As Tolerated Follow-up Appointments PCP follow-up: PCP: No Primary or Family Physician PCP follow up timeframe: In 6 days at 1230 RPT #:[id number] END OF [id number] 17:27:00 [facility] Payam Lugo ([facility]) Electroencephalogram-EEG REPORT#:[id number] REPORT STATUS: Signed DATE:09/18/22 TIME: 1727 PATIENT: BHUMIKA JONES UNIT #: [id number] ROOM/BED: [place] [address] : 74 AGE: 47 SEX: F ATTEND: [...] open eyes (commands were obtained using a sales planning manager) with opening the eyes the patient [...] with the patient mentioned. at 1736 RPT #:[id number] END OF [id number] 14:24:00 [facility] Neurology Consultation Note REPORT#:[id number] REPORT STATUS: Signed DATE:09/18/22 TIME: 4 PATIENT: BHUMIKA JONES UNIT #: [id number] ROOM/BED: [place] [address] : 74 AGE: 47 SEX: F ATTEND: Marly Mendenhall MD ADM AUTHOR: Nelia Parker MD * ALL edits or amendments must be made on the electronic/computer document * See Addendum History of Present Illness HPI Requesting clinician: see consult order Reason for consult: "AMS" Chief complaint: wanting to go home for her family HPI: 47-year-old female Palestinian speaking only who was brought into the [...] and the patient was sent to a long-term. Reportedly per the patient she did not [...] seizures prior to her being in the long-term. Per the patient she [...] 09/18 09/18 09/17 09/17 0553 0553 1850 1519 Chemistry Hemoglobin A1c (4.5 - 5.6 % [...] - 8.0 pH UNITS) 6.5 Ur Specific Niles (1.001 - 1.035 SG) 1.013 Urine Protein [...] the past or not. at 1652 RPT #:[id number] END OF [id number] 11:44:00 [facility] Hospitalist Progress Note REPORT#:[id number] REPORT STATUS: Signed DATE:09/18/22 TIME: 1144 PATIENT: BHUMIKA JONES UNIT #: [id number] ROOM/BED: [place] [address] : 74 AGE: 47 SEX: F ATTEND: [...] patient this morning with the help of district fire chief and she said that he lives with [...] refill, normal range of motion, no edema Neuro/CONTINUOUS DRYOUT OPERATOR: altered mental status, alert Diagnosis, Assessment [...] afternoon if remains stable at 1147 RPT #:[id number] END OF [id number] 01:06:00 [facility] Hospital[facility] History Physical REPORT#:[id number] REPORT STATUS: Signed DATE:09/18/22 TIME: 0106 PATIENT: BHUMIKA JONES UNIT #: [id number] ROOM/BED: [place] [address] : 74 AGE: 47 SEX: F ATTEND: [...] - 8.0 pH UNITS) 6.5 Ur Specific Niles (1.001 - 1.035 SG) 1.013 Urine Protein [...] rhythm Respiratory: decreased breath sounds Abdomen: soft Neuro/CONTINUOUS DRYOUT OPERATOR: altered mental status, alert Diagnosis, Assessment [...] management by incoming thereafter at 0110 RPT #:[id number] END OF [id number] 14:34:00 [facility] EMERGENCY PROVIDER REPORT REPORT#:[id number] REPORT STATUS: Signed DATE:09/17/22 TIME: 1434 PATIENT: BHUMIKA JONES UNIT #: [id number] ROOM/BED: [place] [address] AGE: 47 SEX: F PCP PHYS: No [...] to the patient's sister Lewis Luis, phone #[phone] by phone, who reports the patient has [...] #30 TABS Prov: 09/13/22 DC: 09/14/22 1500 phone representative correction DIVALPROEX (GINA CALLES) 1,000 MG PO DAILY DIVALPROEX DR TEOFILO CALLES) 1,000 MG PO DAILY #60 TABS Prov: 09/13/22 DC: 09/14/22 1459 phone representative correction Reported Medications DIVALPROEX ER (DEPAKOTE ER) 1,000 MG PO DAILY risperiDONE (RisperDAL) 3 MG PO DAILY Past Medical History: Reports: Seizure disorder. Physical Exam Vital Signs Vital Signs First Documented: Result Date Time Pulse Ox 100 09/17 1431 B/P 117/84 09/17 1431 B/P Mean 95 09/17 143 O2 Delivery Room air 09/17 143 Temp [...] - 8.0 pH UNITS) 6.5 Ur Specific Niles (1.001 - 1.035 SG) 1.013 Urine Protein [...] refill, drowsy, admitted, ultimately discharged back to long-term] -My EKG interpretation: I directly visualized and [...] )( Accepted Date 09/17/22 at 1114 RPT #:[id number] END OF [id number] 00:19:00 [facility] ([facility]) EMERGENCY PROVIDER REPORT REPORT#:[id number] REPORT STATUS: Signed DATE:09/17/22 TIME: 0019 PATIENT: BHUMIKA JONES UNIT #: [id number] ROOM/BED: AGE: 47 SEX: F PCP PHYS: No Primary or Family Physician SERVICE AUTHOR: Asim Jack MD * ALL edits or amendments must be made on the electronic/computer document * HPI-General Illness General Initial Greet Date/Time 09/16/22 8939 Presentation Chief Complaint Anxiety, Not feeling well Free Text HPI Notes Free Text HPI Notes Patient brought in by EMS from local women long-term after increasing anxiety and concern for possible seizure activity. She was recently admitted here at [facility] and worked up for possible [...] #30 TABS Prov: 09/13/22 DC: 09/14/22 1500 phone representative correction DIVALPROEX (GINA CALLES) 1,000 MG PO DAILY DIVALPROEX DR (GINA CALLES) 1,000 MG PO DAILY #60 TABS Prov: 09/13/22 DC: 09/14/22 1459 phone representative correction Reported Medications DIVALPROEX ER (DEPAKOTE [...] 15 Pulse 67 09/18 15 Resp 16 03/27 0016 Review of Vital Signs Reviewed Free [...] [Embedded Image Not Available] Laboratory Tests: 09/16 09/16 2334 2334 Chemistry Sodium [...] % (Auto) (14.1 - 45.4 %) 29.6 [place] % (Auto) (2.5 - 11.7 %) 10.8 Eos % (Auto) (0.0 - 6.2 %) 2.9 Baso % (Auto) (0.0 - 2.1 %) 0.7 Gran # (2.0 - 13.7 k/mm3) 3.12 Lymph # (Auto) (0.6 - 3.8 K/mm3) 1.65 [place] # (Auto) (0.11 - 0.59 K/mm3) 0.60 [...] MD RADIOLOGY - XR CHEST 1 V [id number] Report Impression - Status: SIGNED Entered: 09/16/20227 IMPRESSION: No acute cardiopulmonary disease. Impression By: [...] Text MDM Notes Patient presents from local long-term with concern for [...] for discharge. Patient urged to follow-up with [facility] in the next 2 to [...] Instructions Please follow-up with [facility], [facility], and neurology. Return if any confusion, headache, stiff neck, fever, vomiting, or any other new concerns. Please take all your medications as instructed Referrals Provider Group: [facility] Follow-Up: 2-3 Days Provider Referral: Nelia Parker MD Follow-Up: 2-3 Days Address: [address] [place] [address] [address] [place] [address] Resource Referral: [facility] Follow-Up: 2-3 Days Address: [address] [place] [address] at 0140 RPT #:[id number] END OF [id number] 12:06:00 [facility] ([facility]) Electroencephalogram-EEG REPORT#:[id number] REPORT STATUS: Signed DATE:09/15/22 TIME: 1206 PATIENT: BHUMIKA OJNES UNIT #: [id number] [facility] AGE: 47 SEX: F [...] or electrographic seizures recorded. at 1209 RPT #:[id number] END OF [id number] 12:00:00 [facility] Hospitalist Discharge Summary REPORT#:[id number] REPORT STATUS: Signed DATE:09/15/22 TIME: 1200 PATIENT: BHUMIKA JONES UNIT #: [id number] ROOM/BED: [address] : 74 AGE: 47 SEX: F [...] evaluated for possible seizure episode. She is Palestinian-speaking patient only in program mgr was used. Patient denies to have any seizure episodes at home she just ran out of her medications and came to the hospital. Patient otherwise remains hemodynamically stable. However she is too drowsy to be discharged safely back home. I discussed the case with the patient. She wants her medications to be refilled and that she wants to go back to her long-term. I discussed with her about potential seizure [...] initial diagnosis and related differentials with the patient/health care facilities inspector including RN. All concerns and questions are answered to the best of my abilities based on the available data.I have initiated the plan of care based on preliminary diagnosis, requested appopriate consultations with labs/imagings. Patient/health care facilities inspector verbalizes understanding of the plan of care. [...] timeframe: In 1-2 weeks at 1202 RPT #:[id number] END OF [id number] 16:56:00 [facility] ([facility]) Neurology Consultation Note REPORT#:[id number] REPORT STATUS: Signed DATE:09/14/22 TIME: 1655 PATIENT: BHUMIKA JONES UNIT #: [id number] ROOM/BED: [address] : 74 AGE: 47 SEX: [...] evaluated for possible seizure episode. She is Palestinian-speaking patient only in program mgr was used. Patient denies to have any [...] (SODIUM CHLORIDE 0.9% 1000 ML) 1,000 ML .[id number] IV Trazodone HCl (DESYREL) 50 MG BEDTIME PRN PRN PO Sodium Chloride (SODIUM CHLORIDE 0.9% 1000 ML) 1,000 ML .[id number] IV Carbamazepine (TEGretol) 400 MG BID PO Divalproex Sodium (DEPAKOTE DR) 1,000 MG BID PO (DC) Acetaminophen (TYLENOL) 650 MG Q6H PRN PRN PO Ondansetron HCl (ZOFRAN) 4 MG Q4H PRN PRN IV Ceftriaxone Sodium (ROCEPHIN) 1 GM Q24H IV (CAN) Lactated Ringer's (LACTATED RINGERS) 1,000 ML .[id number] IV Ceftriaxone Sodium (ROCEPHIN) 1 GM X1ED [...] % (Auto) (14.1 - 45.4 %) 33.6 [place] % (Auto) (2.5 - 11.7 %) 13.4 H Eos % (Auto) (0.0 - 6.2 %) 7.4 H Baso % (Auto) (0.0 - 2.1 %) 0.9 Gran # (2.0 - 13.7 k/mm3) 2.61 Lymph # (Auto) (0.6 - 3.8 K/mm3) 1.96 [place] # (Auto) (0.11 - 0.59 K/mm3) 0.78 [...] - 8.0 pH UNITS) 6.0 Ur Specific Niles (1.001 - 1.035 SG) 1.032 Urine Protein [...] deferred to primary team. at 1707 RPT #:[id number] END OF [id number] 14:55:00 [facility] ([facility]) Hospitalist History Physical REPORT#:[id number] REPORT STATUS: Signed DATE:09/14/22 TIME: 1454 PATIENT: BHUMIKA JONES UNIT #: [id number] [facility] AGE: 47 SEX: F [...] evaluated for possible seizure episode. She is Palestinian-speaking patient only in program mgr was used. Patient denies to have any [...] (0.88 - 1.13 INR Unit) 0.95 PTT ([place]) (24 - 37.7 SECONDS) 34.6 Toxicology Valproic [...] % (Auto) (14.1 - 45.4 %) 33.6 [place] % (Auto) (2.5 - 11.7 %) 13.4 H Eos % (Auto) (0.0 - 6.2 %) 7.4 H Baso % (Auto)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
--- NOTE | 2024-08-14 15:41 | RAD REPORT ---
EXAM: Chest Single View HISTORY: CHEST PAIN COMPARISON: None. FINDINGS: LUNGS/PLEURA: The lungs are clear. No pleural effusions or pneumothorax. No pulmonary edema. MEDIASTINUM: The mediastinal silhouette is within normal limits. CARDIAC: The cardiac silhouette is within normal limits. UPPER ABDOMEN: No significant abnormality. BONES: No acute abnormality. LINES/TUBES/OTHER: N/A IMPRESSION: No evidence of acute cardiopulmonary disease.
[2024-08-14] MEDS ORDERED: MECLIZINE HCL 12.5 MG TAB ONE (18:05)
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
--- NOTE | 2024-08-14 18:25 | ER ---
Nurse's Notes [facility] Name: Davida Hodges Age: 49 yrs Sex: Female : 1975 Arrival Date: 08/14/2024 Time: 14:33 Bed 9 Private MD: Diagnosis: Anxiety disorder, unspecified Presentation: 08/14 14:53 Chief complaint: Patient states: she has been dizzy with vertigo for approx one month, ap3 and the medicine she received here was helping but she ran out. Coronavirus screen: At this time, the client does not indicate any symptoms associated with coronavirus-19. Ebola Screen: No symptoms or risks identified at this time. Initial Sepsis Screen: Does the patient meet any 2 criteria? No. Patient's initial sepsis screen is negative. Does the patient have a suspected source of infection? No. Patient's initial sepsis screen is negative. Risk Assessment: Do you want to hurt yourself or someone else? Patient reports no desire to harm self or others. Onset of symptoms is unknown. Care prior to arrival: Medication(s) given: zofran 4 mg. 14:53 Method Of Arrival: EMS: [facility] ap3 14:53 Acuity: CARMITA 3 ap3 Triage Assessment: 14:55 General: Appears in no apparent distress. Behavior is calm, cooperative. Pain: Denies ap3 pain. Neuro: Level of Consciousness is awake, alert, obeys commands, Oriented to person, place, time, Reports dizziness. Cardiovascular: Patient's skin is warm and dry. Respiratory: Airway is patent Respiratory effort is even, unlabored, Respiratory pattern is regular, symmetrical. Historical: - Allergies: 14:55 CARBAMAZEPINE DERIVATIVES; ap3 14:55 Tegretol; ap3 14:55 Depakote; ap3 - PMHx: 14:55 Seizure; ap3 - Immunization history:: Adult Immunizations up to date. - Infectious Disease History:: Denies. - Social history:: Smoking status: Patient denies any tobacco usage or history of. - Family history:: not pertinent. - Hospitalizations: : No recent hospitalization is reported. Screenin:56 Abuse screen: Denies threats or abuse. Nutritional screening: No deficits noted. ap3 Tuberculosis screening: No symptoms or risk factors identified. 18:00 [facility] ED Fall Risk Assessment (Adult) History of falling in the last 3 months, hb including since admission No falls in past 3 months (0 pts) Confusion or Disorientation No (0 pts) Intoxicated or Sedated No (0 pts) Impaired Gait No (0 pts) Mobility Assist Device Used No (0 pt) Altered Elimination No (0 pt) Score/Fall Risk Level 0 - 2 = Low Risk Oriented to surroundings, Maintained a safe environment, Educated pt \T\ family on fall prevention, incl call for assistance when getting out of bed, Assessed \T\ reinforced patient's understanding of fall precautions. Assessment: 18:00 General: Appears in no apparent distress. Behavior is calm, cooperative. Pain: Denies hb pain. Neuro: Level of Consciousness is awake, alert, obeys commands, Oriented to person, place, time, situation. Cardiovascular: Patient's skin is warm and dry. Respiratory: Respiratory effort is even, unlabored, Respiratory pattern is regular, symmetrical. GI: No signs and/or symptoms were reported involving the gastrointestinal system. : No signs and/or symptoms were reported regarding the genitourinary system. EENT: No signs and/or symptoms were reported regarding the EENT system. Derm: Skin is pink, warm \T\ dry. Musculoskeletal: No signs and/or symptoms reported regarding the musculoskeletal system. Vital Signs: 14:53 Pulse 63; Resp 17; Temp 97.9(TE); Pulse Ox 100% ; ap3 14:56 BP 132 / 81; ap3 ED Course: 14:35 Patient arrived in ED. ss 14:36 Yong Banks MD is Attending Physician. rn 14:55 Triage completed. ap3 14:56 Arm band placed on right wrist. ap3 14:56 Patient maintains SpO2 saturation greater than 95% on room air. ap3 15:33 XRAY Chest (1 view) In Process Unspecified. EDMS 18:00 Patient has correct armband on for positive identification. Bed in low position. Call hb light in reach. Provided Education on: use of call light, bathroom location. Pulse ox on. NIBP on. 18:03 Maeve Hernandez, RN is Primary Nurse. hb 18:40 No provider procedures requiring assistance completed. Patient did not have IV access hb during this emergency room visit. Administered Medications: 18:00 Drug: Meclizine PO 50 mg PO once Route: PO; hb Medication: 18:00 VIS not applicable for this client. Outcome: 18:24 Discharge ordered by . rn 18:40 Discharged to home ambulatory, 18:40 Condition: stable 18:40 Discharge instructions given to patient, Instructed on discharge instructions, follow up and referral plans. medication usage, Demonstrated understanding of instructions, follow-up care, medications, 18:41 Patient left the ED. Signatures: Dispatcher [employer] EDMS Yong Banks MD MD rn Blanchard, Shelby, RN RN Maeve Hernandez RN RN Kateryna Dixon RN RN ap3
[2024-08-15 07:49] VITALS: TEMP 97.9; O2SAT 100
[2024-08-15 07:50] VITALS: BP 132/81
--- NOTE | 2024-08-17 12:05 | EKG ---
Test Date: 2024-08-14 Test Time: 18:19:46 Casting Agent: HB MEASUREMENT RESULTS: Intervals: Rate: 67 SC: 164 QRSD: 90 QT: 370 QTc: 390 [place]: P: 35 SC: 164 QRS: 20 T: 173 INTERPRETIVE STATEMENTS: Normal sinus rhythm T wave abnormality, consider lateral ischemia Abnormal ECG Compared to ECG 08/04/2024 17:54:47 Possible ischemia now present Sinus bradycardia no longer present T-wave abnormality still present Electronically Signed On 08-17-24 12:04:25 [employer] by Junior Acosta
== END 2024-08-14 18:41 | disposition home or self-care (01) ==
LOC: ER 14:33
DX: F41.9 Anxiety disorder, unspecified (principal)
CPT/HCPCS: 71045; 93005; 99284; J8597

== ENCOUNTER 2024-10-22 11:13 | Emergency (ER) | payer SELFPAY ==
--- OUTSIDE RECORDS SUMMARY | 2024-10-22 11:24 | XMS REPORT | Continuity of Care Document ---
Author Name Unknown Address [address] [place] [address] [facility] Address [address] [place] [address] Care Team Providers Care Juvenile Counselor Name Role Phone PCP, NO Primary Care Physician Unavailab LAWRECNE Weston Attending Clinician Unavailable ARLEN LAGUNAS Attending Clinician Unavailable JUAN MIGUEL PRICE Attending Clinician Unavailable MELVINA SHEPHERD Attending Clinician UnaIndio Arizmendi MD Attending Clinician [phone] INDIO PHELAN Attending Clinician Unavail able INDIO PHELAN Attending Clinician Unavail able Doctor Unassigned, [place] Attending Clinician [facility] Attending Clinician Unavailable DR JESS PAIGE Attending Clinician Unavailable Heri Snow MD Attending Clinician [phone] Denise MELTON, Madhavi Mota Attending Clinician Zari Marly Rodríguez Attending Clinician Unavailable Asim Jack Attending Clinician Unavailable Vladimir Forbes Attending Clinician Unavailable Brad Woodall Attending Clinician Unavaila Russel Angelo Attending Clinician Unavailermelinda Morfin MD, Lisa Schmitz Attending Clinician [phone] Sandrita Key MD Attending Clinician [phone] Attending Clinician Unavailable TAYO BOYD Attending Clinician Unavailable Tayo Boyd MD Attending Clinician [phone] JAVED FRANK Attending Clinician Unavailable Javed Chavez Attending Clinician [phone] DEON NUNEZ Attending Clinician Unavailable Deon Nunez DO Attending Clinician [phone] [phone] Dorado Attending Clinician [phone] Kp GILLILAND Attending Clinician Unavailable Kristin Howell Attending Clinician [phone] KRISTIN MILLER Attending Clinician Unavailable Floridalma Evans MD Attending Clinician [phone] FLORIDALMA EVANS Attending Clinician Unavailable LISA MORFIN Attending Clinician Unavailabl linda Unknown, Attending Attending Clinician Unavailab HENRY Machuca Attending Clinician Unavailable Henry Owen MD Attending Clinician [phone] DEBBIE PAYTON Attending Clinician Unavailab Debbie Hernandez DO Attending Clinician [phone] Le Ramirez NP Attending Clinician + [phone] LAWRENCE MEJIAS Admitting Clinician Unavailable KAYLA ALANIZ [...] Number Effective Date Expirati on Date Source Formerly [facility] [id number] 1000 [id number] 2022 00:00:00 MEDICAID ALIEN PENDING PENDING 2021 [...] different from the original. 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 Asthma Asthma Disease Active 08-01 00:00: 00 Overview: Formattin g of this note might be different from the original. 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 Mental disorder Mental disorder Disease Active 08-01 00:00: 00 [facility] Encounter for routine gynecologi gracie examinatio n Encounter for routine gynecologi gracie examinatio n Disease Active 08-01 00:00: 00 Overview: Formattin g of this note might be different from the original. 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 Morbid obesity Morbid [...] Allergie s NA Active 11-23 07:59: 00 [facility] No Known Allergie s NA Active 11-22 21:17: 11 [facility] ([facility]) No Known Allergie s NA Active 11-22 19:46: 36 [facility] ([facility]) No Known Allergie s DA Active U 09-13 00:00: 00 [facility] carbamaz epine DA Active U UNKNOWN 09-13 00:00: 00 [facility] carbamaz epine DA Active U UNKNOWN 09-10 00:00: 00 [facility] NO KNOWN ALLERGIE S Drug Class Active [facility] No Known Drug Allergie s DA Active [facility] Social History Social Habit Start Date Stop Date Quantity Comments Source [facility] Future intention Reported [facility] ([place]) Alcohol intake 2023-07-23 00:00:00 2023-07-23 00:00:00 Current non-drinker of alcohol (finding) [facility] History of Social function 2023-07-23 00:00:00 2023-07-23 00:00:00 [facility] Exposure to SARS-CoV-2 (event) 2022-09-14 00:00:00 2022-09-24 12:30:00 Not sure [facility] Tobacco use and exposure 2014-07-05 00:00:00 2014-07-05 00:00:00 Smokeless tobacco non-user [facility] Sex Assigned At 1975 00:00:00 1975 00:00:00 [facility] Smoking Status Start Date Stop [...] Henry Contreras oxcarbazepi ne 300 mg tablet 2023-06- 00:00: 00 Yes 1mg Henry Contreras buspirone [...] mL Henry Contreras ropinirole 2 mg tablet - 00:00: 00 Yes 1mg Henry Contreras buspirone [...] ML SOLN|dose: 2.0 mg|route:| frequency: ONE TIME [facility] diphenhydrA MINE INJ (Benadryl) 50 MG/ML SOLN diphenhydrA MINE INJ (Benadryl) 50 MG/ML SOLN 11-22 23:33: 00 11-22 23:33 :00 No 50mg medication :diphenhyd rAMINE INJ (Benadryl) 50 MG/ML SOLN|dose: 50.0 mg|route:| frequency: ONE TIME [facility] ([facility]) LORazepam INJ 2 MG/1 ML SOLN LORazepam INJ 2 MG/1 ML SOLN 11-22 23:33: 00 11-22 23:33 :00 No 2mg medication :LORazepam INJ 2 MG/1 ML SOLN|dose: 2.0 mg|route:| frequency: ONE TIME [facility] ([facility]) ziprasidone INJ 20 MG SOLR ziprasidone INJ 20 MG SOLR 11-22 20:05: 00 11-22 20:05 :00 No 10mg medication :ziprasido ne INJ 20 MG SOLR|dose: 10.0 mg|route:I NTRAMUSCUL AR|frequen cy:ONE TIME [facility] ([facility]) sterile water for injection SOLN sterile water for injection SOLN 11-22 20:05: 00 11-22 20:05 :00 No 10mL medication :sterile water for injection SOLN|dose: 10.0 mL|route:| frequency: ONE TIME [facility] ([facility]) levothyroxi ne 50 mcg tablet 10-12 [...] 3 TIMES A DAY NEEDED FOR ANXIETY 08 00:00: 00 02-25 00:00 :00 No 5 Henry Etta Contreras TAKE 1 TABLET BY MOUTH DAILY 08-01 00:00: 00 02-25 00:00 :00 No 2 Henry F Ben TAKE 1 TABLET AT BEDTIME. 08-01 00:00: 00 02-25 00:00 :00 No 1 Henry Contreras risperidone 1 mg tablet 07-31 00:00: 00 Yes mg Henry Contreras risperiDONE 1 mg tablet 07-23 00:00: 00 Yes [id number] 1mg Take 1 tablet by mouth at bedtime. [facility] TAKE 1 TABLET BY MOUTH EVERY NIGHT AT BEDTIME 07-23 00:00: 00 Yes Henry Contreras TAKE 1 TABLET 3 TIMES [...] 2022-06 00:00: 00 02-25 00:00 :00 No [id number] Henry Contreras TAKE 1 TABLET BY MOUTH DAILY 2022-06 00:00: 00 02-25 00:00 :00 No 2 Henry Contreras TAKE 1 TABLET DAILY. 03-04 00:00: 00 02-25 00:00 :00 No [id number] Henry Contreras TAKE 1-2 TABS EVERY 8 [...] 2115, Administer over 15 Minutes, [address] [facility] LORazepam (ATIVAN) injection 1 mg 09-10 02:15: 00 09-10 03:04 :00 No 1mg 1 mg, Slow IV Push, ONCE, 1 dose, On 09/09/22 at 2115, STAT [facility] hydrOXYzine 25 mg tablet 09-09 00:00: 00 Yes [id number] 25mg Take 1 tablet by mouth every 6 (six) hours. [facility] levETIRAcet am (KEPPRA) 500 mg tablet 09-09 00:00: 00 Yes [id number] 500mg Take 1 tablet by mouth 2 (two) times daily. [facility] acetaminoph en (TYLENOL) tablet 650 mg 09-07 00:45: 00 09-07 02:10 :00 No 650mg 650 mg, Oral, ONCE, 1 dose, On Diana 09/06/22 at 1945, [facility] TAKE 1 TABLET BY MOUTH IN THE MORNING AND 1 TABLET AT BEDTIME 2021-06 00:00: 00 Yes Henry Contreras TAKE 1 TABLET BY MOUTH IN THE MORNING AND 1 AT BEDTIME 2021-06 006 00:00: 00 Yes Henry Contreras acetaminoph en (TYLENOL) tablet 1,000 mg 10-02 22:15: 00 10-02 23:27 :00 No 1000mg 1,000 mg, Oral, ONCE, 1 dose, On Sat10/02/21 at 1715, [facility] ibuprofen (IBU) tablet 600 mg 10-02 22:15: 00 10-02 23:27 :00 No 600mg 600 mg, Oral, ONCE, 1 dose, On Sat10/02/21 at 1715, [facility] hydroxyzine HCl 25 mg tablet 2020-06 00:00: 00 Yes 1mg Henry Contreras traMADoL 50 mg tablet 2020-06 00:00: 00 Yes [id number] 50mg Take 1 tablet by mouth every 6 (six) hours as needed for Pain (scale 7-10). Indication s: acute pain [facility] naproxen sodium (ANAPROX DS) 550 mg tablet 2020-06 00:00: 00 Yes [id number] 550mg Take 1 tablet by mouth 2 (two) times daily with meals. [facility] ibuprofen 600 mg tablet 2020-06 00:00: 00 Yes 1mg Henry Contreras amoxicillin -clavulanat e 875-125 mg per tablet 08-13 00:00: 00 Yes [id number] 1{tbl} Take 1 tablet by mouth every 12 (twelve) hours. [facility] clindamycin 300 mg capsule 08-13 00:00: 08-23 05:59 :00 No [id number] 300mg Take 1 capsule by mouth 4 [...] ONCE, 1 dose, Sat07/22/19 at 1800, Routine
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 [...] 07-13 00:00: 00 07-19 05:59 :00 No [id number] 10mg Take 1 tablet by mouth every 8 (eight) hours for [address] [facility] mupirocin 2 % topical ointment 07-10 00:00: 00 Yes 1% Henry Contreras ibuprofen 800 mg tablet 07-10 00:00: 00 Yes 1mg Henry Contreras Keflex 500 mg capsule 07-10 00:00: 00 Yes 1mg Henry Contreras cephALEXin (KEFLEX) 500 mg capsule 07-04 00:00: 00 Yes [id number] 500mg Take 1 capsule by mouth 4 (four) times daily. [facility] traMADol 50 mg tablet 07-04 00:00: 00 05-05 00:00 :00 No [id number] 50mg Take 1 tablet by mouth every 6 (six) hours as needed for Pain (scale 7-10). [facility] bacitracin 500 unit/gram ointment 07-04 00:00: 00 07-15 05:59 :00 No [id number] Apply to affected area(s) 2 (two) times daily for [address] [facility] traMADol 50 mg tablet 06-30 00:00: 00 05-05 00:00 :00 No [id number] 50mg Take 1 tablet by mouth every [...] Contreras Bactrim DS 800 mg-160 mg tablet 2018-1 2-18 00:00: 00 Yes 1mg Henry Contreras ARIPiprazol [...] martin Body temperature 2023-11-24 19:00:00 98.1 [degF] [facility] ([place]) Diastolic blood pressure 2023-11-24 19:00:00 69 mm[Hg] [facility] ([place]) Heart rate 2023-11-24 19:00:00 70 /min [facility]) Oxygen saturation in Arterial blood by Pulse oximetry 2023-11-24 19:00:00 97 /min [facility] ([place]) Respiratory rate 2023-11-24 19:00:00 16 /min [facility]) Systolic blood pressure 2023-11-24 19:00:00 127 mm[Hg] [facility] ([place]) Diastolic blood pressure 2023-11-23 23:30:00 78 mm[Hg] [facility] ([place]) Heart rate 2023-11-23 23:30:00 74 /min [facility]) Oxygen saturation in Arterial blood by Pulse oximetry 2023-11-23 23:30:00 97 /min [facility] ([place]) Respiratory rate 2023-11-23 23:30:00 16 /min [facility]) Systolic blood pressure 2023-11-23 23:30:00 134 mm[Hg] [facility] ([place]) Body temperature 2023-11-23 19:30:00 98.5 [degF] [facility]) Body height 2023-07-23 20:19:00 152.4 cm [facility] Body weight 2023-07-23 20:19:00 77.837 kg [facility] BMI 2023-07-23 20:19:00 33.51 kg/m2 [facility] Height 2022-11-04 14:04:00 149.86 CM Weight 2022-11-04 14:04:00 73.02 KG Systolic blood pressure 2022-09-24 17:32:00 130 mm[Hg] [place] [facility] Diastolic blood pressure 2022-09-24 17:32:00 85 mm[Hg] [facility] Heart rate 2022-09-24 17:32:00 64 /min [facility] Body temperature 2022-09-24 17:32:00 36.83 Oam [facility] Respiratory rate 2022-09-24 17:32:00 18 /min [facility] Body weight 2022-09-24 17:32:00 74.844 kg [facility] BMI 2022-09-24 17:32:00 33.33 kg/m2 [facility] Oxygen saturation in Arterial blood by Pulse oximetry 2022-09-24 17:32:00 99 /min [facility] Systolic blood pressure 2022-09-10 23:55:00 111 mm[Hg] [facility] Diastolic blood pressure 2022-09-10 23:55:00 84 mm[Hg] [facility] Heart rate 2022-09-10 23:55:00 105 /[facility] Body temperature 2022-09-10 23:55:00 37.33 Oma [facility] Respiratory rate 2022-09-10 23:55:00 19 /min [facility] Systolic blood pressure 2022-09-10 01:44:00 126 mm[Hg] [facility] Diastolic blood pressure 2022-09-10 01:44:00 81 mm[Hg] [facility] Heart rate 2022-09-10 01:44:00 78 /min [facility] Body temperature 2022-09-10 01:44:00 36.56 Oma [facility] Respiratory rate 2022-09-10 01:44:00 16 /min [facility] Body weight 2022-09-10 01:44:00 79.379 kg [facility] BMI 2022-09-10 01:44:00 35.35 kg/m2 [facility] Oxygen saturation in Arterial blood by Pulse oximetry 2022-09-10 01:44:00 100 /min [facility] Systolic blood pressure 2022-09-07 05:37:00 119 mm[Hg] [facility] Diastolic blood pressure 2022-09-07 05:37:00 67 mm[Hg] [facility] Heart rate 2022-09-07 05:37:00 79 /min [facility] Respiratory rate 2022-09-07 05:37:00 16 /min [facility] Oxygen saturation in Arterial blood by Pulse oximetry 2022-09-07 05:37:00 98 /min [facility] Body temperature 2022-09-06 23:05:00 36.78 Oma [facility] Body weight 2022-09-06 23:05:00 79.379 kg [facility] BMI 2022-09-06 23:05:00 35.35 kg/m2 [facility] Systolic blood pressure 2021-10-02 20:55:00 111 mm[Hg] [facility] Diastolic blood pressure 2021-10-02 20:55:00 70 mm[Hg] [facility] Heart rate 2021-10-02 20:55:00 79 /min [facility] Body temperature 2021-10-02 20:55:00 36.61 Oma [facility] Respiratory rate 2021-10-02 20:55:00 18 /min [facility] Body height 2021-10-02 20:55:00 149.9 cm [facility] Body weight 2021-10-02 20:55:00 79.379 kg [facility] BMI 2021-10-02 20:55:00 35.35 kg/m2 [facility] Oxygen saturation in Arterial blood by Pulse oximetry 2021-10-02 20:55:00 100 /min [facility] Systolic blood pressure 2021-05-05 19:20:00 102 mm[Hg] [facility] Diastolic blood pressure 2021-05-05 19:20:00 48 mm[Hg] [facility] Heart rate 2021-05-05 19:20:00 68 /min [facility] Body temperature 2021-05-05 19:20:00 36.94 Oma [facility] Respiratory rate 2021-05-05 19:20:00 18 /min [facility] Body weight 2021-05-05 19:20:00 79.379 kg [facility] 2021-05-05 19:20:00 35.35 kg/m2 [facility] Oxygen saturation in Arterial blood by Pulse oximetry 2021-05-05 19:20:00 99 /min [facility] Systolic blood pressure 2019-12-15 22:12:00 138 mm[Hg] [facility] Diastolic blood pressure 2019-12-15 22:12:00 100 mm[Hg] [facility] Heart rate 2019-12-15 22:12:00 77 /min [facility] Body temperature 2019-12-15 22:12:00 37.06 Oma [facility] Respiratory rate 2019-12-15 22:12:00 20 /min [facility] Body weight 2019-12-15 22:12:00 79.379 kg [facility] BMI 2019-12-15 22:12:00 35.35 kg/m2 [facility] Oxygen saturation in Arterial blood by Pulse oximetry 2019-12-15 22:12:00 100 /min [facility] Systolic blood pressure 2019-12-15 22:12:00 138 mm[Hg] [facility] Diastolic blood pressure 2019-12-15 22:12:00 100 mm[Hg] [facility] Heart rate 2019-12-15 22:12:00 77 /min [facility] Body temperature 2019-12-15 22:12:00 37.06 Oma [facility] Respiratory rate 2019-12-15 22:12:00 20 /min [facility] Body weight 2019-12-15 22:12:00 79.379 kg [facility] BMI 2019-12-15 22:12:00 35.35 kg/m2 [facility] Oxygen saturation in Arterial blood by Pulse oximetry 2019-12-15 22:12:00 100 /min [facility] Respiratory rate 2019-10-25 23:43:00 18 /min [facility] Body weight 2019-10-25 23:43:00 83.915 kg [facility] 2019-10-25 23:43:00 37.37 kg/m2 [facility] Respiratory rate 2019-10-25 23:43:00 18 /min [facility] Body weight 2019-10-25 23:43:00 83.915 kg [facility] BMI 2019-10-25 23:43:00 37.37 kg/m2 [facility] Systolic blood pressure 2019-08-13 19:25:00 123 mm[Hg] [facility] Diastolic blood pressure 2019-08-13 19:25:00 88 mm[Hg] [facility] Heart rate 2019-08-13 19:25:00 78 /min [facility] Body temperature 2019-08-13 19:25:00 36.56 Oma [facility] Respiratory rate 2019-08-13 19:25:00 18 /min [facility] Body height 2019-08-13 19:25:00 149.9 cm [facility] Body weight 2019-08-13 19:25:00 90.719 kg [facility] BMI 2019-08-13 19:25:00 40.40 kg/m2 [facility] Oxygen saturation in Arterial blood by Pulse oximetry 2019-08-13 19:25:00 100 /min [facility] Systolic blood pressure 2019-08-13 19:25:00 123 mm[Hg] [facility] Diastolic blood pressure 2019-08-13 19:25:00 88 mm[Hg] [facility] Heart rate 2019-08-13 19:25:00 78 /min [facility] Body temperature 2019-08-13 19:25:00 36.56 Oma [facility] Respiratory rate 2019-08-13 19:25:00 18 /min [facility] Body height 2019-08-13 19:25:00 149.9 cm [facility] Body weight 2019-08-13 19:25:00 90.719 kg [facility] BMI 2019-08-13 19:25:00 40.40 kg/m2 [facility] Oxygen saturation in Arterial blood by Pulse oximetry 2019-08-13 19:25:00 100 /min [facility] Systolic blood pressure 2019-07-23 00:20:15 120 mm[Hg] [facility] Diastolic blood pressure 2019-07-23 00:20:15 74 mm[Hg] [facility] Heart rate 2019-07-23 00:20:15 82 /min [facility] Respiratory rate 2019-07-23 00:20:15 19 /min [facility] Oxygen saturation in Arterial blood by Pulse oximetry 2019-07-23 00:20:15 100 /min [facility] Body temperature 2019-07-22 19:41:00 36.33 Oma [facility] Body weight 2019-07-22 19:39:00 90.719 kg [facility] BMI 2019-07-22 19:39:00 39.06 kg/m2 [facility] Systolic blood pressure 2019-07-23 00:20:15 120 mm[Hg] [facility] Diastolic blood pressure 2019-07-23 00:20:15 74 mm[Hg] [facility] Heart rate 2019-07-23 00:20:15 82 /min [facility] Respiratory rate 2019-07-23 00:20:15 19 /min [facility] Oxygen saturation in Arterial blood by Pulse oximetry 2019-07-23 00:20:15 100 /min [facility] Body temperature 2019-07-22 19:41:00 36.33 Oma [facility] Body weight 2019-07-22 19:39:00 90.719 kg [facility] BMI 2019-07-22 19:39:00 39.06 kg/m2 [facility] Systolic blood pressure 2019-07-14 03:33:00 127 mm[Hg] [facility] Diastolic blood pressure 2019-07-14 03:33:00 88 mm[Hg] [facility] Heart rate 2019-07-14 03:33:00 79 /min [facility] Respiratory rate 2019-07-14 03:33:00 16 /min [facility] Oxygen saturation in Arterial blood by Pulse oximetry 2019-07-14 03:33:00 97 /min [facility] Body weight 2019-07-14 02:16:00 90.719 kg [facility] BMI 2019-07-14 02:16:00 39.06 kg/m2 [facility] Body temperature 2019-07-14 02:15:00 36.78 Oma [facility] Body weight 2019-07-10 20:39:00 90.719 kg [facility] BMI 2019-07-10 20:39:00 39.06 kg/m2 [facility] Systolic blood pressure 2019-01-21 23:34:00 133 mm[Hg] [facility] Diastolic blood pressure 2019-01-21 23:34:00 78 mm[Hg] [facility] Heart rate 2019-01-21 23:34:00 66 /min [facility] Body temperature 2019-01-21 23:34:00 36.94 Oma [facility] Respiratory rate 2019-01-21 23:34:00 18 /min [facility] Body height 2019-01-21 23:34:00 147.3 cm [facility] Body weight 2019-01-21 23:34:00 68.04 kg [facility] BMI 2019-01-21 23:34:00 31.35 kg/m2 [facility] Oxygen saturation in Arterial blood by Pulse oximetry 2019-01-21 23:34:00 100 /min [facility] Systolic blood pressure 2019-01-21 23:34:00 133 mm[Hg] [facility] Diastolic blood pressure 2019-01-21 23:34:00 78 mm[Hg] [facility] Heart rate 2019-01-21 23:34:00 66 [facility] Body temperature 2019-01-21 23:34:00 36.94 Oma [facility] Respiratory rate 2019-01-21 23:34:00 18 /min [facility] Body height 2019-01-21 23:34:00 147.3 cm [facility] Body weight 2019-01-21 23:34:00 68.04 kg [facility] BMI 2019-01-21 23:34:00 31.35 kg/m2 [facility] Oxygen saturation in Arterial blood by Pulse oximetry 2019-01-21 23:34:00 100 /min [facility] BP Systolic 2024-04-23 14:08:00 118 mm[Hg] Step [...] Temperature 2023-11-25 16:08:00 97.50 degrees [facility] Heart Rate 2023-11-25 16:08:00 80.00 /min Antoinette [...] OF BENEFITS 2023-07-23 18:45:32 Docto r Unassigned, [place] [facility] REFERRAL- REQUEST/RESPONSE 2023-06-05 06:01:00 Doctor Unassigned, [place] [facility] REFERRAL- REQUEST/RESPONSE 2023-05-20 06:01:00 Doctor Unassigned, [place] [facility] COMP. METABOLIC PANEL ([id number]) 2022-09-07 01:38:00 Tayo Boyd [facility] CBC WITH DIFF 2022-09-07 01:38:00 Tayo Boyd [facility] URINALYSIS 2022-09-07 01:38:00 Tayo Boyd [facility] XR ANKLE <3 VW LEFT 2022-09-07 00:56:00 Tayo Boyd [facility] XR FOOT <3 VW LEFT 2022-09-07 00:56:00 Tayo Boyd [facility] CONSENT/REFUSAL FOR DIAGNOSIS AND TREATMENT 2022-09-06 22:08:37 Doctor Unassigned, [place] [facility] CT CERVICAL SPINE WO CONTRAST 2021-10-02 21:53[facility] 2021-10-02 21:53:[facility] WO CONTRAST 2021-10-02 21:53:00 Racahel Frankanne [facility] XR FOREARM 2 VW RIGHT 2021-05-05 20:03:34 Jose Carlos Nunez [facility] XR WRIST 3+ VW RIGHT 2021-05-05 20:03:34 Chino Nunez [facility] NOTICE OF PRIVACY PRACTICES 2021-05-05 19:12:00 Doctor Unassigned, [place] [facility] CONSENT/REFUSAL FOR DIAGNOSIS AND TREATMENT 2021-05-05 19:11:19 Doctor Unassigned, [place] [facility] CONSENT/REFUSAL FOR DIAGNOSIS AND TREATMENT 2019-08-13 19:17:22 Doctor Unassigned, [place] [facility] CT HEAD WO CONTRAST 2019-07-22 22:24:37 Rachel Samayoa [facility] XR CERVICAL SPINE 2 VW 2019-07-22 21:59:59 Samantha Samayoa [facility] CBC WITH DIFFERENTIAL 2019-07-22 21:34:00 Yanira Samayoa [facility] XR CERVICAL SPINE 2 VW 2019-07-14 02:43:00 Ivory Owen [facility] XR ELBOW <3 VW LEFT 2019-07-14 02:43:00 Henry Owen [facility] XR KNEE <3 VW RIGHT 2019-07-14 02:43:00 Henry Owen [facility] XR SHOULDER <2 VW LEFT 2019-07-14 02:43:00 Ivory Owen [facility] [id number] Ecg Routine Ecg W/least 12 Lds W/i r 2017-09-24 00:00:00 Henry Contreras Encounters Start Date/Time End Date/Time Encounter Type Admission Type Attending [facility] Care Department Encounter ID Source 2022-11-13 13:10:28 [facility] [id number] [facility] 2022-11-05 09:23:13 [facility] [id number] [facility] 2024-10-19 12:19:10 2024-10-19 12:19:10 Outpatient SFA S[facility] [id number] Henry Contreras 2024-09-30 11:49:29 2024-09-30 11:49:29 Outpatient SFA SFA [id number] Henry Contreras 2024-09-08 13:39:45 2024-09-08 13:39:45 Outpatient SFA SFA [id number] Henry Contreras 2024-07-23 14:05:55 2024-07-23 14:05:55 Outpatient SFA SFA [id number] Henry Contreras 2024-07-23 00:00:00 2024-07-23 00:00:00 Outpatient Visit SFA [id number] Henry Contreras 2024-07-08 14:39:39 2024-07-08 14:39:39 Outpatient SFA SFA [id number] Henry Contreras 2024-07-07 15:49:36 2024-07-07 15:49:36 Outpatient SFA SFA [id number] Henry Contreras 2024-04-15 15:38:37 2024-04-15 15:38:37 Outpatient SFA [facility] 1023 Henry Contreras 2024-02-24 00:00:00 2024-02-24 00:00:00 Outpatient Visit SFA [id number] Henry Contreras 2024-02-06 11:12:2024-02-06 11:12:07 Outpatient SFA SFA 0815 Henry Contreras [...] 2023-11-25 00:00:00 2023-11-25 00:00:00 Outpatient Visit SFA [id number] Henry Quiles Ben 2023-11-23 19:45:00 2023-11-24 19:04:00 Outpatient Encounter 1 MAGALIE [facility] 2.16.840.1. [id number]. [id number] [facility]) 2023-11-21 19:00:00 2023-11-22 01:00:00 Emergency ER [facility]RL[facility]AGU[id number] [facility] 2023-11-16 23:05:00 2023-11-21 17:28:00 Inpatient ER JUAN MIGUEL PRICE [id number] [facility] 2023-11-15 16:24:00 2023-11-15 22:54:00 Emergency ER IMMARAJ, MELVINA CHRTJP CHRTJP [id number] PERFECTO Ro [facility] 2023-10-28 12:27:38 2023-10-28 12:27:38 Outpatient SFA [facility] [id number] Henry Contreras 2023-10-25 15:44:11 2023-10-25 15:44:11 Outpatient SFA [facility] 0503 Henry Contreras 2023-10-25 00:00:00 2023-10-25 00:00:00 Outpatient Visit [facility] [id number] Henry Contreras 2023-10-04 15:25:52 2023-10-04 15:25:52 Outpatient SFA [facility] 0412 Herny Contreras 2023-10-01 00:00:00 2023-10-01 00:00:00 Telephone [facility] 1.2.840.114 350.1.13.10 4.2.7.2.[id number] [facility] 2023-09-16 16:03:08 2023-09-16 16:03:08 Outpatient SFA [facility] [id number] Henry Contreras 2023-08-01 10:00:49 2023-08-01 10:00:49 Outpatient SFA [facility] [id number] Henry Contreras 2023-07-23 14:20:00 2023-07-23 16:57:02 Outpatient INDIO OLIVEROS [facility] [id number] [facility] 2023-07-23 14:20:00 2023-07-23 16:57:02 Office Visit [facility] .2.840.114 350.1.13.10 4.2.7.2.[id number] [facility] 2023-07-23 00:00:00 2023-07-23 00:00:00 Orders Only Doctor Unassigned, [place] [facility] 1.2.840.114 350.1.13.10 4.2.7.2.[id number] [facility] 2023-07-04 16:48:23 2023-07-04 16:48:23 Outpatient [facility] 0111 Hnery Contreras 2023-06-18 10:35:36 2023-06-18 10:35:36 Outpatient [facility] 1226 Henry Contreras 2023-06-05 00:00:00 2023-06-05 00:00:00 Orders Only Doctor Unassigned, [place] [facility] 1.2.840.114 350.1.13.10 4.2.7.2.[id number] [facility] 2023-06-04 16:00:39 2023-06-04 16:00:39 Outpatient [facility] 1212 Henry Contreras 2023-05-24 15:38:52 2023-05-24 15:38:52 Outpatient [facility] 1201 Henry Contreras 2023-05-22 00:00:00 2023-05-22 00:00:00 Letter (Out) Neurology [facility] 1.2.840.114 350.1.13.10 4.2.7.2.[id number] [facility] 2023-05-20 00:00:00 2023-05-20 00:00:00 Orders Only Doctor Unassigned, [place] [facility] 1.2.840.114 350.1.13.10 4.2.7.2.[id number] [facility] 2023-05-17 15:07:14 2023-05-17 15:07:14 Outpatient [facility] [id number] Henry Contreras 2023-03-02 12:27:43 2023-03-02 12:27:43 Outpatient SFA [facility] [id number] Henry Contreras 2023-01-09 17:11:26 2023-01-09 17:11:26 Outpatient S[facility] [id number] Henry Contreras 2022-11-04 14:04:00 2022-11-05 11:09:00 Emergency E JESS PAIGE [facility] [id number] [facility] 2022-09-24 12:33:00 2022-09-24 12:51:00 Emergency Heri Snow [facility] 1.2.840.114 350.1.13.10 4.2.7.2.[id number] [facility] 2022-09-22 00:00:00 2022-09-22 00:00:00 Nurse Triage Madhavi Mcginnis [facility] 1.2.840.114 350.1.13.10 4.2.7.2.[id number] [facility] 2022-09-18 10:09:00 2022-09-19 14:28:00 Inpatient EM Marly Mendenhall [facility] OBSE [id number] 25 [facility] 2022-09-16 22:50:00 2022-09-17 01:40:00 Emergency EM Asim Jack [facility] FABI [id number] 33 [facility] 2022-09-14 14:52:00 2022-09-15 14:00:00 Inpatient EM AndreiJuanGilbert [facility] TELE [id number] 75 [facility] 2022-09-13 09:34:00 2022-09-13 13:00:00 Emergency EM Brad Woodall [facility] FABI [id number] 75 [facility] 2022-09-10 23:39:00 2022-09-11 11:28:00 Emergency EM Russel Sewell [facility] MEXP [id number] 51 [facility] 2022-09-10 18:57:00 2022-09-10 20:20:00 Emergency Lisa Morfin [facility] 1.840.114 350.1.13.10 4.2.7.2.[id number] [facility] 2022-09-10 18:57:00 2022-09-10 20:20:00 Emergency X SANDRITA KEY [facility] ERT [id number] [facility] 2022-09-09 20:45:00 2022-09-09 22:46:00 Emergency X SANDRTIA KEY [facility] ERT [id number] [facility] 2022-09-09 20:45:00 2022-09-09 22:46:00 Emergency Sandrita Key [facility] 1.840.114 350.1.13.10 4.2.7.2.[id number] [facility] 2022-09-06 18:09:00 2022-09-07 00:51:00 Emergency X TAYO BOYD [facility] ERT [id number] [facility] 2022-09-06 18:09:00 2022-09-07 00:51:00 Emergency Tayo Boyd [facility] 1..840.114 350.1.13.10 4.2.7.2.[id number] [facility] 2022-08-21 14:11:33 2022-08-21 14:11:33 Outpatient SFA [facility] [id number] Henry Quiles Ben 2022-07-17 15:03:48 2022-07-17 15:03:48 Outpatient SFA [facility] 0124 Henry F Ben 2021-10-02 15:56:00 2021-10-02 19:00:00 Emergency X JAVED FRANK [facility] ERT [id number] [facility] 2021-10-02 15:56:00 2021-10-02 19:00:00 Emergency Javed Frank [facility] 1..840.114 350.1.13.10 4.2.7.2.[id number] [facility] 2021-05-05 13:22:00 2021-05-05 14:48:00 Emergency DEON ROCHE [facility] ERT [id number] [facility] 2021-05-05 13:22:00 2021-05-05 14:48:00 Emergency Deon Nunez [facility] 1.2.840.114 350.1.13.10 4.2.7.2.[id number] [facility] 2021-05-05 00:00:00 2021-05-05 00:00:00 Orders Only Doctor Unassigned, [place] [facility] 1.2.840.114 350.1.13.10 4.2.7.2.[id number] [facility] 2019-12-15 17:11:56 2019-12-15 18:04:00 [facility] 1.2.840.114 350.1.13.10 4.2.7.2.[id number] [facility] 2019-12-15 17:11:56 2019-12-15 18:04:00 Emergency Kp Gilliland [facility] 1.2.840.114 350.1.13.10 4.2.7.2.686 [id number] [id number] 2019-12-15 17:11:56 2019-12-15 17:11:56 Emergency X Kp GILLILAND [facility] ERT [id number] [facility] 2019-10-25 18:31:31 2019-10-25 19:21:00 Emergency Kristin Miller [facility] 1.2.840.114 350.1.13.10 4.2.7.2.[id number] [facility] 2019-10-25 18:31:31 2019-10-25 19:21:00 Emergency Kristin Miller [facility] 1.2.840.114 350.1.13.10 4.2.7.2.686 [id number] 084 [id number] 2019-10-25 18:31:31 2019-10-25 18:31:31 Emergency X KRISTIN MILELR [facility] ERT [id number] [facility] 2019-08-13 13:30:00 2019-08-13 14:36:00 Emergency Floridalma Evans [facility] 1.2.840.114 350.1.13.10 4.2.7.2.[id number] [facility] 2019-08-13 13:30:00 2019-08-13 14:36:00 Emergency X FLORIDALMA EVANS [facility] ERT [id number] [facility] 2019-08-13 13:30:00 2019-08-13 14:36:00 Emergency Floridalma Evans [facility] 1.2.840.114 350.1.13.10 4.2.7.2.686 [id number] [id number] 2019-07-22 13:42:11 2019-07-22 19:02:00 Emergency X LISA MORFIN [facility] ERT [id number] [facility] 2019-07-22 13:42:11 2019-07-22 19:02:00 Emergency Unknown, Attending Lisa Morfin [facility] 1.2.840.114 350.1.13.10 4.2.7.2.[id number] [facility] 2019-07-22 13:42:11 2019-07-22 19:02:00 Emergency Unknown, Attending Lisa Morfin [facility] 1.2.840.114 350.1.13.10 4.2.7.2.686 [id number] 2019-07-13 20:17:19 2019-07-13 21:48:00 Emergency X HENRY OWEN [facility] ERT [id number] [facility] 2019-07-13 20:17:19 2019-07-13 21:48:00 Emergency Henry Owen [facility] 1.2.840.114 350.1.13.10 4.2.7.2.[id number] [facility] 2019-07-10 14:26:03 2019-07-10 16:33:00 Emergency X DEBBIE PAYTON [facility] ERT [id number] [facility] 2019-07-10 14:26:03 2019-07-10 16:33:00 Emergency Debbie Payton [facility] 1.2840.114 350.1.13.10 4.2.7.2.[id number] [facility] 2019-07-04 19:09:02 2019-07-04 22:51:00 Emergency X LISA MORFIN [facility] ERT [id number] [facility] 2019-06-30 10:33:08 2019-06-30 13:10:00 Emergency X DEON [facility] ERT [id number] [facility] 2019-05-25 11:58:19 2019-05-25 15:37:00 Emergency X DEON [facility] ERT [id number] [facility] 2019-04-09 22:29:37 2019-04-09 23:28:00 Emergency X BELLA FLORIDALMA [facility] ERT [id number] [facility] 2019-01-21 18:38:01 2019-01-21 19:59:00 Emergency Le Ramirez [facility] 1.2840.114 350.1.13.10 4.2.7.2.[id number] [facility] 2019-01-21 18:38:01 2019-01-21 19:59:00 Emergency Le Ramirez [facility] 1.2840.114 350.1.13.10 4.2.7.2.686 [id number] 084 [id number] Results Test Description Test Time Test Comments Results Result Co mments Source Henry Griffin, THIRD [id number] 00:00:00* Test Item Value Reference Range Interpretation Comme nts TSH, THIRD GENERATION (test code = 2821) 3.970 UIU/ML Henry Daniel [id number] 04:20:00* Test Item Value Reference Range Interpretation Comme nts FT4 (test code = FT4) 1.05 ng/dL 0.78-2.19 T3 [id number] 04:20:00* Test Item Value Reference Range Interpretation Comme nts T3UP (test code = T3UP) 40.9 % 23.5-40.5 H Thyroxine (T4) free index in Serum or [id number] 04:19:00* Test Item Value Reference Range Interpretation Comme nts Thyroxine (T4) free index in Serum or Plasma (test code = 28785-3) 1.05 ng/dL 0.78-2.19 N [facility])Thyroid hormone uptake (T-uptake) in Serum or P 2023-11-24 04:18:00* Test Item Value Reference Range Interpretation Comme nts Thyroid hormone uptake (T-up take) in Serum or Plasma (test code = 16366-1) 40.9 % 23.5-40.5 H [facility])URINE DRUG [id number] 00:43:00* Test Item Value Reference Range Interpretation [...] abuse 5 panel - Urine by Screen qqfvjg3481-70-15 00:40:00 NegativeNegativeNegativeNegativeNegativeNegativeNegative[facility]BBUOTAOEPJ1253-87-14 00:33:00* Test Item Value Reference Range Interpretation [...] /HPF 0-2 Urinalysis panel - Urine by Vijy2522-31-90 00:33:00* Test Item Value Reference Range Interpretation Comme nts Ketones [Presence] in Urine (test code = 90225-0) 15 MG/DL NEG N pH of Urine (test code = 2756-5) 5.5 1 5.0-7.5 N Urobilinogen [Presence] in U rine (test code = 65847-7) 0.2 EU/DL 0.2-1.0 N Specific gravity of Urine (t est code = 2965-2) 1.013 1 1.0-1.025 N Leukocytes [Presence] in Uri ne sediment by Light microscopy (test code = 86256-0) 10 /HPF 0.0-5.0 H Erythrocytes [Presence] in U rine sediment by Light microscopy (test code = 45801-6) 2 /HPF 0.0-2.0 [facility])VITAMIN [id number] 22:47:00* Test Item Value Reference Range Interpretation Comme nts B12 (test code = B12) 880 pg/mL 239-931 [id number] 22:47:00* Test Item Value Reference Range Interpretation Comme nts FOLATE (test code = FOLATE) 8.9 ng/mL 2.76-20.0 THYROID STIMULATION [id number] 22:47:00* Test Item Value Reference Range Interpretation Comme nts TSH (test code = TSH) 6.62 UIU/ML 0.465-4.68 H Folate [Mass/volume] in Serum or Dwmvvh3361-67-34 22:47:00* Test Item Value Reference Range Interpretation Comme nts Folate [Mass/volume] in Seru m or Plasma (test code = 2284-8) 8.9 ng/mL 2.76-20.0 [facility])Thyrotropin in Serum or Vlrdhq9977-58-49 22:47:00* Test Item Value Reference Range Interpretation Comme nts Thyrotropin in Serum or Plas ma (test code = 54354-5) 6.62 UIU/ML 0.465-4.68 H [facility])Cobalamin (Vitamin B12) [Mass/volume] in Serum 2023-11-23 22:47:00* Test Item Value Reference Range Interpretation Comme nts Cobalamin (Vitamin B12) [Mass/volume] in Serum or Plasma (test code = 2132-9) 880 pg/mL 239.0-931.0 [facility])ER SCREEN FOR HIV 1/ 22:46:00* Test Item Value Reference Range Interpretation Comme nts HIV 1/2 AB (test code = SCRN HIV) NEGATIVE NEGATIVE This test is us ed for SCREENING purposes only. All reactive results are prelimenary and confirmation results will follow. HIV 1+2 Ab [Units/volume] in Pkhyl5016-01-38 22:45:[facility]HEPATITIS C ANTIBODY [id number] 22:28:00* Test Item Value Reference Range Interpretation Comme nts SCRN HCV (test code = SCRN HCV) NEGATIVE NEGATIVE Hepatitis C Anti body test is for screening purposes only. All reactives will be confirmed by additional testing. Hepatitis C virus Ab [Presence] in Meavr2507-76-44 22:27:00[facility] QUAL (KIT)2023-11-23 22:01:00* Test Item Value Reference Range Interpretation Comme [facility] HCGQUAL (test code = HCGQUAL) NEGATIVE NEGATIVE URINE: NEGATIVE = < 20 mIU/ML; POSITIVE= >/= 20 mIU/ML SERUM: NEGATIVE = < 10 mIU/ML; POSITIVE= >/= 10 mIU/ML SOURCE (test code = SOURCE) SERUM HCG INTERNAL POSITIVE CNTRL (test code = HCGIPC) PASS PASS HCG LOT # (test code = UHCGLOT) [id number] HCG EXPIRATION DATE (test code = UHCGEXP) Choriogonadotropin.beta subunit ( uifk7916-17-92 22:01:00* Test Item Value Reference Range Interpretation Comme [facility] Specimen source [Identifier] of Body fluid (test code = 01910-9) SERUM N Reagent Lot number (test cod e = 01408-6) 1 N [facility])CT HEAD W/O [id number] 22:00:00 [facility] : 1975 Sex: F[address] [id number] IMAGING REPORTPatient Name: ROBERT, CONCEPTIONDate of Service: [id number]: 48 Sex: F Order #: [id number] Room: ERSDOB: 1975 X-Ray Number: [id number] Record Number: [id number] Hospital Number: [id number] Physician: LAWRENCE MEJIASOrdermiguel angel Physician: LAWRENCE MEJIASPROCEDURE: CTHEAD W/O CONTINDICATIONS: dx: [...] 21:59:03CT Head and Orbit - bilateral WO izaedyxb3953-88-17 21:59:03 ORDER 1400: CT HEAD W/O CONT (LOINC: 58636-9)ORDER DATE: November 24, 2023 12:50:00 AM [facility]CT ABDOMEN/PELVIS [id number] 21:54:00 [facility] : 1975 Sex: F[address] [id number] IMAGING REPORTPatient Name: JONES CONCEPTIONDate of Service: [id number]: 48 Sex: F Order #: [id number] Room: ERSDOB: 1975 X-Ray Number: [id number] Record Number: [id number] Hospital Number: [id number] Physician: LAWRENCE MEJIASOrdering Physician: LAWRENCE MEJIASPROCEDURE: CT [...] YUNIOR MCKEON 2023-11-23 21:53:03 CT Abdomen and Awgjwx9570-13-12 21:53:03ORDER 1500: CT ABDOMEN/PELVIS WITHOUT (LOINC: 91193-2)ORDER DATE: November 24, 2023 12:50:00 AM [facility])[id number] 21:31:00* Test Item Value Reference Range Interpretation [...] 70-99 Fasting glucos e normal <100 MG/DL- [employer] recommendation CALCIUM (test code = [...] of age is not validated by the computer peripheral equipment operator and may not represent the patients [...] should be used in the calculation". CREATINE [id number] 21:31:00* Test Item Value Reference Range Interpretation Comme nts CK (test code = CK) 115 U/L 30-135 BLOOD ALCOHOL (ETOH)2023-11-23 21:31:00* Test Item Value Reference Range Interpretation Comme nts ALCOHOL BLOOD LEVEL (test code = ALC BLD) <10 MG/DL 0-10 Results ar e to be used for medical purposes (treatment) only. Not intended for non medical purposes. Creatine kinase isoenzymes [interpretation] [id number] 21:30:00* Test Item Value Reference Range Interpretation Comme nts Creatine kinase isoenzymes [interpretation] in Serum or Plasma Narrative (test code = 60301-8) 115 U/L 30.0-135.0 N [facility])Ethanol [Mass/volume] in Gzcqe5752-53-35 21:30:00* Test Item Value Reference Range Interpretation Comme nts Ethanol [Mass/volume] in Blo od (test code = 5640-8) <10 0.0-10.0 N [facility])Comprehensive metabolic 2000 panel - Serum or P 2023-11-23 21:27:00* Test Item Value Reference Range Interpretation Comme nts Sodium [Moles/volume] in Blood (test code = 2947-0) 137 MMOL/L 137.0-145.0 N Potassium [Moles/volume] in Blood (test code = 6298-4) 4.2 MMOL/L 3.5-5.1 N Chloride [Moles/volume] in Blood (test code = 2069-3) 100 MMOL/L 98.0-107.0 N Carbon dioxide, total [Moles/volume] in Blood (test code = 54854-9) 24 MMOL/L 22.0-30.0 N Urea nitrogen [Mass/volume] in Serum or Plasma (test code = 3094-0) 16 MG/DL 7.0-17.0 N Creatinine [Mass/volume] in Blood (test code = 00907-6) 0.6 MG/DL 0.7-1.2 L Glucose [Mass/volume] in Blood (test code = 2339-0) 80 MG/DL 70.0-99.0 N Calcium [Mass/volume] in Serum or Plasma (test code = 34073-3) 10.3 MG/DL 8.4-10.2 H Protein [Mass/volume] in Serum or Plasma (test code = 2885-2) 9.9 G/DL 6.3-8.2 H Albumin [Presence] in Serum or Plasma (test code = 56854-9) 4.7 G/DL 3.5-5.0 N Bilirubin direct and total panel [Mass/volume] - Serum or Plasma (test code = 22137-6) 0.8 MG/DL 0.2-1.3 N Aspartate aminotransferase [Enzymatic [...] 50 percent [- Reported] (test code = 95248-6) 113.0 mL/min/1.73m2 N Anion gap in Serum or Plasma (test code = 54350-3) 13 mmol/L 4.0-12.0 H [facility])[id number] 21:15:00* Test Item Value Reference Range Interpretation [...] 1.2-7.2 CBC W Auto Differential panel - Tyhge3188-12-91 21:15:00* Test Item Value Reference Range Interpretation Comme nts Leukocytes other [Identifier ] in Blood by Automated count (test code = 10108-5) 4.5 K/UL 3.5-10.9 N Erythrocytes [#/volume] in B lood (test code = 19351-8) 4.91 M/UL 4.0-5.0 N Hemoglobin A/Hemoglobin.tota l in Blood (test code = 4546-8) 13.8 G/DL 11.5-15.5 N Hematocrit [Volume Fraction] of Blood (test code = 31056-8) 42.4 % 34.0-46.0 N Erythrocyte mean corpuscular volume [Entitic volume] (test code = 08294-6) 86.4 FL 80.0-98.0 N Erythrocyte mean corpuscular hemoglobin [Entitic mass] (test code = 29963-5) 28.1 PG 28.0-32.0 N Erythrocyte mean corpuscular hemoglobin concentration [Mass/volume] (test code = 00187-9) 32.5 G/DL 32.5-36.5 N Erythrocyte distribution wid th [Ratio] (test code = 76965-8) 14.9 % 11.5-14.5 H Platelets panel - Blood by Automated count (test code = 69219-1) 124 K/UL 150.0-450.0 L Platelet mean volume [Entiti c volume] in Blood by Automated count (test code = 48322-1) 10.0 FL 7.4-10.4 N Neutrophils.segmented/100 leukocytes in Blood (test code = 76699-7) 53.3 % 40.0-75.0 N Lymphocytes Variant/100 leuk ocytes in Blood (test code = 84593-2) 33.9 % 24.0-44.0 N Lymphocytes+Monocytes/100 leukocytes in Blood (test code = 4662-3) 10.0 % 0.0-13.0 N Eosinophils [#/volume] in Bl ood (test code = 46769-5) 2.2 % 0.0-4.0 N Basophils [#/volume] in Bloo d (test code = 16530-9) 0.4 % 0.0-2.0 N Immature granulocytes/100 leukocytes in Blood (test code = 65994-6) 0.2 % 0.0-1.0 N Nucleated erythrocytes [#/vo lume] in Blood (test code = 94557-8) 0 /100 WBC N Neutrophils [#/volume] in Bl ood (test code = 06794-6) 2.4 K/UL 1.2-7.2 N [facility]PAP TEST, THINPREP, [id number] 16:02:24* Test Item Value Reference Range Interpretation Comme nts SOURCE: (test code = 8001) Cervical/Endoce rvical SLIDES: (test code = 8011) 1 LMP: (test code = 8021) SEE NOTE POST MENOPAUSAL SPECIMEN ADEQUACY: (test code = 51491) (NOTE) Satisfactory for evaluation. Endocervical cells/transformation zone component present. INTERPRETATION: (test code = 34689) NILM/NO EPITH. ABNORMALITY;SEE BELOW --- - NEGATIVE FOR INTRAEPITHELIAL LESION OR MALIGNANCY (NILM) ---- SUPERVISOR SOAKERS : (test code = 8101) Jami Smalls LOCATION: (test code = 39813) (NOTE) Specimens proces sed and interpreted at [facility], [address] [place] [address], , CLIA: [id number] CPT: (test code = 8140) (NOTE) 46810 UNLESS OTH ERWISE INDICATED, COMPUTER AIDED AND SUPERVISOR SOAKERS SCREENING PERFORMED. The Pap test is a screening test with an inherent, but low probability of error. Your patient should be reminded to consult you immediately if she experiences any suspicious signs or symptoms, regardless of her Pap test result. An alternate report format containing images or consolidated prior Pap history is available as applicable. HPV HIGH RISK WITH GENOTYPE, [id number] 15:53:52* Test Item Value Reference Range Interpretation Comme nts HPV HIGH RISK INTERP (test code = 79663) NEGATIVE NEGATIVE HPV 16 (test code = 07766) NEGATIVE HPV 18 (test code = 52516) NEGATIVE HPV, HR, OTHER GENOTYPES (test code = 83502) NEGATIVE Testing methodol ogy is real-time PCR utilizing hydrolysis probes with the [employer] system. The test individually detects genotypes 16 and 18, as well as the other 12 high risk types (31,33,35,39,45,51,52,56 ,58,59,66,68). The expected result is negative. A negative result does not rule out the presence of HPV not included in the genotype set, a low level of infection or specimen sampling error. UNLESS OTHERWISE INDICATED, ALL TESTING PERFORMED AT [facility] [address] [place] [address] VENEER SUPERVISOR: JATIN FELIPE M.D. CLIA NUMBER [id number] [facility] [place]. [id number] HPV HIGH RISK WITH GENOTYPE, [id number] 00:00:00* Test Item Value Reference Range Interpretation Comme nts HPV HIGH RISK INTERP (test c ode = 06413) NEGATIVE HPV 16 (test code = 26213) NEGATIVE HPV 18 (test code = 93137) NEGATIVE HPV, HR, OTHER GENOTYPES (te st code = 72585) NEGATIVE PDFE (test code = PDFReport) PDF Henry Quiles AustinPAP TEST, THINPREP, [id number] 00:00:00* Test Item Value Reference Range Interpretation Comme nts SOURCE: (test code = 8001) Cervical/Endocervical SLIDES: (test code = 8011) 1 LMP: (test code = 8021) SEE NOTE SPECIMEN ADEQUACY: (test code = 09256) (NOTE) INTERPRETATION: (test code = 33859) NILM/NO EPITH. ABNORMALITY;SEE BELOW SUPERVISOR SOAKERS: (test code = 8101) Jami Smalls LOCATION: (test code = 66060) (NOTE) CPT: (test code = 8140) (NOTE) [facility]iles AustinHPV HIGH RISK WITH GENOTYPE, [id number] 00:00:00* Test Item Value Reference Range Interpretation Comme nts HPV HIGH RISK INTERP (test c ode = 90076) NEGATIVE HPV 16 (test code = 27216) NEGATIVE HPV 18 (test code = 68157) NEGATIVE HPV, HR, OTHER GENOTYPES (te st code = 61106) NEGATIVE PDFE (test code = PDFReport) PDF Henry Quiles AustinPAP TEST, THINPREP, [id number] 00:00:00* Test Item Value Reference Range Interpretation Comme nts SOURCE: (test code = 8001) Cervical/Endocervical SLIDES: (test code = 8011) 1 LMP: (test code = 8021) SEE NOTE SPECIMEN ADEQUACY: (test code = 54436) (NOTE) INTERPRETATION: (test code = 14735) NILM/NO EPITH. ABNORMALITY;SEE BELOW SUPERVISOR SOAKERS: (test code = 8101) Jami Smalls LOCATION: (test code = 96647) (NOTE) CPT: (test code = 8140) (NOTE) [facility] Quiles AustinHPV HIGH RISK WITH GENOTYPE, [id number] 00:00:00* Test Item Value Reference Range Interpretation Comme nts HPV HIGH RISK INTERP (test c ode = 60410) NEGATIVE HPV 16 (test code = 74672) NEGATIVE HPV 18 (test code = 13403) NEGATIVE HPV, HR, OTHER GENOTYPES (te st code = 04951) NEGATIVE PDFE (test code = PDFReport) PDF Henry ContrerasPAP TEST, THINPREP, [id number] 00:00:00* Test Item Value Reference Range Interpretation Comme nts SOURCE: (test code = 8001) Cervical/Endocervical SLIDES: (test code = 8011) 1 LMP: (test code = 8021) SEE NOTE SPECIMEN ADEQUACY: (test code = 97560) (NOTE) INTERPRETATION: (test code = 31283) NILM/NO EPITH. ABNORMALITY;SEE BELOW SUPERVISOR SOAKERS: (test code = 8101) Jami Smalls LOCATION: (test code = 68986) (NOTE) CPT: (test code = 8140) (NOTE) Henry F AustinHPV HIGH RISK WITH GENOTYPE, [id number] 00:00:00* Test Item Value Reference Range Interpretation Comme nts HPV HIGH RISK INTERP (test c ode = 95603) NEGATIVE HPV 16 (test code = 97475) NEGATIVE HPV 18 (test code = 12754) NEGATIVE HPV, HR, OTHER GENOTYPES (te st code = 63063) NEGATIVE PDFE (test code = PDFReport) PDF Henry Quiles AustinPAP TEST, THINPREP, [id number] 00:00:00* Test Item Value Reference Range Interpretation Comme nts SOURCE: (test code = 8001) Cervical/Endocervical SLIDES: (test code = 8011) 1 LMP: (test code = 8021) SEE NOTE SPECIMEN ADEQUACY: (test code = 21258) (NOTE) INTERPRETATION: (test code = 82990) NILM/NO EPITH. ABNORMALITY;SEE BELOW SUPERVISOR SOAKERS: (test code = 8101) Jami Smalls LOCATION: (test code = 10080) (NOTE) CPT: (test code = 8140) (NOTE) Henry ContrerasPAP TEST, THINPREP, IMAGED [ADDED]2023-10-10 00:00:00* Test Item Value Reference Range Interpretation Comme nts SOURCE: (test code = 8001) Unspecified SLIDES: (test code = 8011) 2 LMP: (test code = 8021) NOT GIVEN SPECIMEN ADEQUACY: (test code = 74998) (NOTE) INTERPRETATION: (test code = 81864) UNSATISFACTORY; SEE BELOW OTHER COMMENTS: (test code = 8081) (NOTE) SUPERVISOR SOAKERS: (test code = 8101) Jose Bustillos QC TECHNOLOGIST: (test code = 8111) Jason Whitman,[facility](ASCP),IAC LOCATION: (test code = 05676) (NOTE) CPT: (test code = 8140) (NOTE) Henry ContrerasHPV HIGH RISK IF ASC/LSIL, THINPREP [ADDED]2023-10-10 00:00:00* Test Item Value Reference Range Interpretation Comme nts HPV HIGH RISK IF ASC/LSIL, THINPREP (test code = 10842) CRITERIA NOT MET Henry Quiles AustinPAP TEST, THINPREP, IMAGED [ADDED]2023-10-10 00:00:00* Test Item Value Reference Range Interpretation Comme nts SOURCE: (test code = 8001) Unspecified SLIDES: (test code = 8011) 2 LMP: (test code = 8021) NOT GIVEN SPECIMEN ADEQUACY: (test code = 90196) (NOTE) INTERPRETATION: (test code = 02503) UNSATISFACTORY; SEE BELOW OTHER COMMENTS: (test code = 8081) (NOTE) SUPERVISOR SOAKERS: (test code = 8101) Jose Bustillos QC TECHNOLOGIST: (test code = 8111) RAUL Wilde(ASCP),IAC LOCATION: (test code = 33634) (NOTE) CPT: (test code = 8140) (NOTE) Henry F AustinHPV HIGH RISK IF ASC/LSIL, THINPREP [ADDED]2023-10-10 00:00:00* Test Item Value Reference Range Interpretation Comme nts HPV HIGH RISK IF ASC/LSIL, THINPREP (test code = 23931) CRITERIA NOT MET Henry F AustinPAP TEST, THINPREP, IMAGED [ADDED]2023-10-10 00:00:00* Test Item Value Reference Range Interpretation Comme nts SOURCE: (test code = 8001) Unspecified SLIDES: (test code = 8011) 2 LMP: (test code = 8021) NOT GIVEN SPECIMEN ADEQUACY: (test code = 14850) (NOTE) INTERPRETATION: (test code = 42160) UNSATISFACTORY; SEE BELOW OTHER COMMENTS: (test code = 8081) (NOTE) SUPERVISOR SOAKERS: (test code = 8101) Jose Bustillos QC TECHNOLOGIST: (test code = 8111) RAUL Wilde(ASCP),IAC LOCATION: (test code = 64717) (NOTE) CPT: (test code = 8140) (NOTE) Henry F AustinHPV HIGH RISK IF ASC/LSIL, THINPREP [ADDED]2023-10-10 00:00:00* Test Item Value Reference Range Interpretation Comme nts HPV HIGH RISK IF ASC/LSIL, THINPREP (test code = 99647) CRITERIA NOT MET Henry F AustinPAP TEST, THINPREP, IMAGED [ADDED]2023-10-10 00:00:00* Test Item Value Reference Range Interpretation Comme nts SOURCE: (test code = 8001) Unspecified SLIDES: (test code = 8011) 2 LMP: (test code = 8021) NOT GIVEN SPECIMEN ADEQUACY: (test code = 23374) (NOTE) INTERPRETATION: (test code = 59314) UNSATISFACTORY; SEE BELOW OTHER COMMENTS: (test code = 8081) (NOTE) SUPERVISOR SOAKERS: (test code = 8101) Jose Bustillos QC TECHNOLOGIST: (test code = 8111) Jason Whitman,SCT(ASCP),IAC LOCATION: (test code = 38051) (NOTE) CPT: (test code = 8140) (NOTE) Henry Quiles AustinHPV HIGH RISK IF ASC/LSIL, THINPREP [ADDED]2023-10-10 00:00:00* Test Item Value Reference Range Interpretation Comme nts HPV HIGH RISK IF ASC/LSIL, THINPREP (test code = 17254) CRITERIA NOT MET Henry Quiles AustinGONORRHEA, NAAT, THINPREP [ADDED]2023-10-08 00:00:00* Test Item Value Reference Range Interpretation Comme nts GONORRHEA, NAAT, THINPREP (t est code = 99561) NEGATIVE Henry Quiles AustinCHLAMYDIA, NAAT, THINPREP [ADDED]2023-10-08 00:00:00* Test Item Value Reference Range Interpretation Comme nts CHLAMYDIA, NAAT, THINPREP (t est code = 52962) NEGATIVE PDFE (test code = PDFReport) PDF Henry Quiles AustinGONORRHEA, NAAT, THINPREP [ADDED]2023-10-08 00:00:00* Test Item Value Reference Range Interpretation Comme nts GONORRHEA, NAAT, THINPREP (t est code = 13213) NEGATIVE Henry Quiles AustinCHLAMYDIA, NAAT, THINPREP [ADDED]2023-10-08 00:00:00* Test Item Value Reference Range Interpretation Comme nts CHLAMYDIA, NAAT, THINPREP (t est code = 12256) NEGATIVE PDFE (test code = PDFReport) PDF Henry Quiles AustinGONORRHEA, NAAT, THINPREP [ADDED]2023-10-08 00:00:00* Test Item Value Reference Range Interpretation Comme nts GONORRHEA, NAAT, THINPREP (t est code = 40887) NEGATIVE Henry ContrerasCHLAMYDIA, NAAT, THINPREP [ADDED]2023-10-08 00:00:00* Test Item Value Reference Range Interpretation Comme nts CHLAMYDIA, NAAT, THINPREP (t est code = 97315) NEGATIVE PDFE (test code = PDFReport) PDF Henry ContrerasGONORRHEA, NAAT, THINPREP [ADDED]2023-10-08 00:00:00* Test Item Value Reference Range Interpretation Comme nts GONORRHEA, NAAT, THINPREP (t est code = 20999) NEGATIVE Henry ContrerasCHLAMYDIA, NAAT, THINPREP [ADDED]2023-10-08 00:00:00* Test Item Value Reference Range Interpretation Comme nts CHLAMYDIA, NAAT, THINPREP (t est code = 77677) NEGATIVE PDFE (test code = PDFReport) PDF Henry Griffin, THIRD [id number] 08:14:44* Test Item Value Reference Range Interpretation Comme nts TSH, THIRD GENERATION (test code = 2821) 5.200 UIU/ML 0.400-4.100 H UNLESS OTHERWISE INDICATED, ALL TESTING PERFORMED AT [facility] [address] [place] [address] VENEER SUPERVISOR: JATIN FELIPE M.D. CLIA NUMBER [id number] [facility] [place]. [id number] 00:00:00* Test Item Value Reference Range Interpretation Comme nts TSH, THIRD GENERATION (test code = 2821) 5.200 UIU/ML Henry Quiles [id number] 00:00:00* Test Item Value Reference Range Interpretation Comme nts TSH, THIRD GENERATION (test code = 2821) 5.200 UIU/ML Henry [id number] 00:00:00* Test Item Value Reference Range Interpretation Comme nts TSH, THIRD GENERATION (test code = 2821) 5.200 UIU/ML Henry [id number] 00:00:00* Test Item Value Reference Range Interpretation Comme nts TSH, THIRD GENERATION (test code = 2821) 5.200 UIU/ML Henry MonroyH, THIRD [id number] 23:53:27* Test Item Value Reference Range Interpretation Comme nts TSH, THIRD GENERATION (test code = 2821) 11.100 UIU/ML 0.400-4.100 H COMPREHENSIVE METABOLIC [id number] 23:46:03* Test Item Value Reference Range Interpretation Comme nts GLUCOSE (test code = 7) 97 MG/DL 70-99 BUN (test code = 2207) 7 MG/DL 6-20 CREATININE (test code = 2213) 0.61 MG/DL 0.60-1.30 eGFR (2020 CKD-EPI) (test code = 15240) 110 ML/MIN/1.73 >60 CALC BUN/CREAT (test code [...] 13 U/L 5-40 CBC W/AUTO DIFF WITH [id number] 08:48:44* Test Item Value Reference Range Interpretation [...] 0.00-0.10 ABS NUCLEATED RBCS (test code = 49658) 0.00 K/UL 0.00-0.11 UNLESS OTHER MONTOYA INDICATED, ALL TESTING PERFORMED AT [facility] [address] [place] [address], [place] [address] VENEER SUPERVISOR: JATIN FELIPE M.D. CLIA NUMBER [id number] [facility] [place]. [id number] 00:00:00* Test Item Value Reference Range Interpretation Comme nts TSH, THIRD GENERATION (test code = 2821) 11.100 UIU/ML [facility] [id number] 00:00:00* Test Item Value Reference Range Interpretation [...] ABS NUCLEATED RBCS (test cod e = 60047) 0.00 K/UL Henry F AustinCOMPREHENSIVE METABOLIC [id number] 00:00:00* Test Item Value Reference Range Interpretation Comme nts GLUCOSE (test code = 2217) 97 MG/DL BUN (test code = 2208) 7 MG/DL CREATININE (test code = 2214) 0.61 MG/DL eGFR (2020 CKD-EPI) (test code = 58388) 110 ML/MIN/1.73 CALC BUN/CREAT (test code = [...] (test code = 2219) 13 U/L Henry [id number] 00:00:00* Test Item Value Reference Range Interpretation Comme nts TSH, THIRD GENERATION (test code = 2821) 11.100 UIU/ML Henry ContrerasCBC W/AUTO [id number] 00:00:00* Test Item Value Reference Range Interpretation [...] ABS NUCLEATED RBCS (test cod e = 17509) 0.00 K/UL Henry ContrerasCOMPREHENSIVE METABOLIC [id number] 00:00:00* Test Item Value Reference Range Interpretation Comme nts GLUCOSE (test code = 2217) 97 MG/DL BUN (test code = 2208) 7 MG/DL CREATININE (test code = 2214) 0.61 MG/DL eGFR (2020 CKD-EPI) (test code = 34031) 110 ML/MIN/1.73 CALC BUN/CREAT (test code = [...] (test code = 2219) 13 U/L Henry [id number] 00:00:00* Test Item Value Reference Range Interpretation Comme nts TSH, THIRD GENERATION (test code = 2821) 11.100 UIU/ML Henry ContrerasCBC W/AUTO [id number] 00:00:00* Test Item Value Reference Range Interpretation [...] ABS NUCLEATED RBCS (test cod e = 06049) 0.00 K/UL Henry F BenCOMPREHENSIVE METABOLIC [id number] 00:00:00* Test Item Value Reference Range Interpretation Comme nts GLUCOSE (test code = 2217) 97 MG/DL BUN (test code = 2208) 7 MG/DL CREATININE (test code = 2214) 0.61 MG/DL eGFR (2020 CKD-EPI) (test code = 06337) 110 ML/MIN/1.73 CALC BUN/CREAT (test code = [...] code = 2219) 13 U/L Henry Quiles [id number] 00:00:00* Test Item Value Reference Range Interpretation Comme nts TSH, THIRD GENERATION (test code = 2821) 11.100 UIU/ML Henry ContrerasCBC W/AUTO [id number] 00:00:00* Test Item Value Reference Range Interpretation [...] ABS NUCLEATED RBCS (test cod e = 62019) 0.00 K/UL Henry ContrerasCOMPREHENSIVE METABOLIC [id number] 00:00:00* Test Item Value Reference Range Interpretation Comme nts GLUCOSE (test code = 2217) 97 MG/DL BUN (test code = 2208) 7 MG/DL CREATININE (test code = 2214) 0.61 MG/DL eGFR (2020 CKD-EPI) (test code = 51807) 110 ML/MIN/1.73 CALC BUN/CREAT (test code = [...] (test code = 2219) 13 U/L Henry [id number] 01:13:06* Test Item Value Reference Range Interpretation Comme nts TRANSFERRIN (test code = 4936) 315 MG/DL 200-360 UNLESS OTHERWISE INDICATED, ALL TESTING PERFORMED AT [facility] [address] [place] [address] VENEER SUPERVISOR: JATIN FELIPE M.D. CLIA NUMBER [id number] [facility] [place]. [id number] LIPID [id number] 01:12:48* Test Item Value Reference Range Interpretation [...] SPECIMENS. FOR MOREINFORMATION, SEE CLIENT ANNOUNCEMENT AT [email or web address] RISK RATIO LDL/HDL (test code = 2238) 1.34 RATIO <3.22 COMPREHENSIVE METABOLIC [id number] 01:12:48* Test Item Value Reference Range Interpretation [...] IRON BINDING CAPACITY AND IRON AND % [id number] 01:12:48* Test Item Value Reference Range Interpretation Comme nts IRON, SERUM (test code = 222) 51 UG/DL 37-145 UNSATURATED IBC (test code = 87599) 356 UG/DL 112-347 H CALC TOTAL IBC (test code = 2076) 407 UG/DL 250-450 CALC % IRON SAT (test code = 2078) 13 % 20-50 L [id number] 00:59:24* Test Item Value Reference Range Interpretation Comme nts FERRITIN (test code = 2074) 20 NG/ML 13-200 LIPID [id number] 00:00:00* Test Item Value Reference Range Interpretation Comme nts CHOLESTEROL (test code = 2210) 191 MG/DL TRIGLYCERIDES (test code = 2232) 89 MG/DL HDL CHOLESTEROL (test code = 2220) 74 MG/DL CALC LDL CHOL (test code = 2237) 99 MG/DL RISK RATIO LDL/HDL (test cod e = 2238) 1.34 RATIO Henry ContrerasCOMPREHENSIVE METABOLIC [id number] 00:00:00* Test Item Value Reference Range Interpretation Comme nts GLUCOSE (test code = 2217) 92 MG/DL BUN (test code = 2208) 15 MG/DL CREATININE (test code = 2214) 0.65 MG/DL eGFR (2020 CKD-EPI) (test code = 95436) 108 ML/MIN/1.73 CALC BUN/CREAT (test code = [...] ContrerasIRON BINDING CAPACITY AND IRON AND % [id number] 00:00:00* Test Item Value Reference Range Interpretation Comme nts IRON, SERUM (test code = 2221) 51 UG/DL UNSATURATED IBC (test code = ) 356 UG/DL CALC TOTAL IBC (test code = 2076) 407 UG/DL CALC % IRON SAT (test code = 2078) 13 % Henry [id number] 00:00:00* Test Item Value Reference Range Interpretation Comme nts FERRITIN (test code = 2074) 20 NG/ML Henry Quiles [id number] 00:00:00* Test Item Value Reference Range Interpretation Comme nts TRANSFERRIN (test code = 4936) 315 MG/DL Henry Quiles AustinLIPID [id number] 00:00:00* Test Item Value Reference Range Interpretation Comme nts CHOLESTEROL (test code = 2210) 191 MG/DL TRIGLYCERIDES (test code = 2232) 89 MG/DL HDL CHOLESTEROL (test code = 2220) 74 MG/DL CALC LDL CHOL (test code = 2237) 99 MG/DL RISK RATIO LDL/HDL (test cod e = 2238) 1.34 RATIO Henry ContrerasCOMPREHENSIVE METABOLIC [id number] 00:00:00* Test Item Value Reference Range Interpretation Comme nts GLUCOSE (test code = 2217) 92 MG/DL BUN (test code = 2208) 15 MG/DL CREATININE (test code = 2214) 0.65 MG/DL eGFR (2020 CKD-EPI) (test code = 66284) 108 ML/MIN/1.73 CALC BUN/CREAT (test code = [...] ContrerasIRON BINDING CAPACITY AND IRON AND % [id number] 00:00:00* Test Item Value Reference Range Interpretation Comme nts IRON, SERUM (test code = 2221) 51 UG/DL UNSATURATED IBC (test code = 36235) 356 UG/DL CALC TOTAL IBC (test code = 2076) 407 UG/DL CALC % IRON SAT (test code = 2078) 13 % Henry [id number] 00:00:00* Test Item Value Reference Range Interpretation Comme nts FERRITIN (test code = 2075) 20 NG/ML Henry C[id number] 00:00:00* Test Item Value Reference Range Interpretation Comme nts TRANSFERRIN (test code = 4936) 315 MG/DL Henry Quiles AustinLIPID [id number] 00:00:00* Test Item Value Reference Range Interpretation Comme nts CHOLESTEROL (test code = 2210) 191 MG/DL TRIGLYCERIDES (test code = 2232) 89 MG/DL HDL CHOLESTEROL (test code = 2220) 74 MG/DL CALC LDL CHOL (test code = 2237) 99 MG/DL RISK RATIO LDL/HDL (test cod e = 2238) 1.34 RATIO Henry ContrerasCOMPREHENSIVE METABOLIC [id number] 00:00:00* Test Item Value Reference Range Interpretation Comme nts GLUCOSE (test code = 2217) 92 MG/DL BUN (test code = 2208) 15 MG/DL CREATININE (test code = 2214) 0.65 MG/DL eGFR (2020 CKD-EPI) (test code = 72088) 108 ML/MIN/1.73 CALC BUN/CREAT (test code = [...] ContrerasIRON BINDING CAPACITY AND IRON AND % [id number] 00:00:00* Test Item Value Reference Range Interpretation Comme nts IRON, SERUM (test code = 2221) 51 UG/DL UNSATURATED IBC (test code = 60183) 356 UG/DL CALC TOTAL IBC (test code = 2076) 407 UG/DL CALC % IRON SAT (test code = 2078) 13 % Henry [id number] 00:00:00* Test Item Value Reference Range Interpretation Comme nts FERRITIN (test code = 2074) 20 NG/ML Henry Quiles [id number] 00:00:00* Test Item Value Reference Range Interpretation Comme nts TRANSFERRIN (test code = 4936) 315 MG/DL Henry ContrerasLIPID [id number] 00:00:00* Test Item Value Reference Range Interpretation Comme nts CHOLESTEROL (test code = 2210) 191 MG/DL TRIGLYCERIDES (test code = 2232) 89 MG/DL HDL CHOLESTEROL (test code = 0) 74 MG/DL CALC LDL CHOL (test code = 7) 99 MG/DL RISK RATIO LDL/HDL (test cod e = 2238) 1.34 RATIO Henry ContrerasCOMPREHENSIVE METABOLIC [id number] 00:00:00* Test Item Value Reference Range Interpretation Comme nts GLUCOSE (test code = 7) 92 MG/DL BUN (test code = 2208) 15 MG/DL CREATININE (test code = 2214) 0.65 MG/DL eGFR (2020 CKD-EPI) (test code = 98009) 108 ML/MIN/1.73 CALC BUN/CREAT (test code = [...] ContrerasIRON BINDING CAPACITY AND IRON AND % [id number] 00:00:00* Test Item Value Reference Range Interpretation Comme nts IRON, SERUM (test code = 2222) 51 UG/DL UNSATURATED IBC (test code = 23410) 356 UG/DL CALC TOTAL IBC (test code = 2077) 407 UG/DL CALC % IRON SAT (test code = 207) 13 % Henry [id number] 00:00:00* Test Item Value Reference Range Interpretation Comme nts FERRITIN (test code = 2075) 20 NG/ML Henry C[id number] 00:00:00* Test Item Value Reference Range Interpretation Comme nts TRANSFERRIN (test code = 4936) 315 MG/DL Henry ContrerasHEMOGLOBIN [id number] 03:08:40* Test Item Value Reference Range Interpretation Comme nts HEMOGLOBIN A1c (test code = 58190) 5.5 % 4.2-5.6 CBC W/AUTO DIFF WITH [id number] 02:29:36* Test Item Value Reference Range Interpretation [...] 0.00-0.10 ABS NUCLEATED RBCS (test code = 26734) 0.00 K/UL 0.00-0.11 CBC W/AUTO [id number] 00:00:00* Test Item Value Reference Range Interpretation [...] ABS NUCLEATED RBCS (test cod e = 44207) 0.00 K/UL Henry Quiles AustinHEMOGLOBIN [id number] 00:00:00* Test Item Value Reference Range Interpretation Comme nts HEMOGLOBIN A1c (test code = 16870) 5.5 % Henry ContrerasCBC W/AUTO [id number] 00:00:00* Test Item Value Reference Range Interpretation [...] ABS NUCLEATED RBCS (test cod e = 56397) 0.00 K/UL Henry Quiles AustinHEMOGLOBIN [id number] 00:00:00* Test Item Value Reference Range Interpretation Comme nts HEMOGLOBIN A1c (test code = 05566) 5.5 % Henry Quiles AustinCBC W/AUTO [id number] 00:00:00* Test Item Value Reference Range Interpretation [...] ABS NUCLEATED RBCS (test cod e = 52442) 0.00 K/UL Henry ContrerasHEMOGLOBIN [id number] 00:00:00* Test Item Value Reference Range Interpretation Comme nts HEMOGLOBIN A1c (test code = 70220) 5.5 % Henry Quiles AustinCBC W/AUTO [id number] 00:00:00* Test Item Value Reference Range Interpretation [...] ABS NUCLEATED RBCS (test cod e = 00371) 0.00 K/UL Henry ContrerasHEMOGLOBIN [id number] 00:00:00* Test Item Value Reference Range Interpretation Comme nts HEMOGLOBIN A1c (test code = 65834) 5.5 % Henry ContrerasDRUGS OF [id number] 05:03:00* Test Item Value Reference Range Interpretation [...] 200 ng/mL Opiates 300 ng/mL URINALYSIS WITH [id number] 04:56:00* Test Item Value Reference Range Interpretation [...] (test code = USPERM) /HPF NONE URINE [id number] 04:53:00* Test Item Value Reference Range Interpretation [...] the FDA and the [employer] (CAP) are more stringent than those required for this test. Therefore, the result should be interpreted with caution and close attention to other clinical and epidemiological data [id number] 16:00:00* Test Item Value Reference Range Interpretation Comme nts SALICYLATE (test code = 94B) <3.0 mg/dL 15.0-30.0 L LIVER [id number] 15:49:00* Test Item Value Reference Range Interpretation [...] code = 30A) 16 IU/L See_Comment [Automated [employer]] The system which generated this result transmitted reference range: <=33. The reference range was not used to interpret this result as normal/abnormal. ALT (test code = 31A) <7 IU/L 10-49 L [id number] 15:48:00* Test Item Value Reference Range Interpretation [...] to interpret this result as normal/abnormal. 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 Old healed fractures of the distal tibia and fibular noted.Soft tissues: Unremarkable.IMPRESSION: No acute findings.Electronically signed by: Nikko Santiago MD 11/04/2022 3:10 PM CDT [id number] BEDSIDE [id number] 11:51:00* Test Item Value Reference Range Interpretation Comme nts GLUCOSE BEDSIDE TESTING (karen t code = GLUBED) 79 MG/DL 70-119 N GLUCOSE BEDSIDE [id number] 06:23:00* Test Item Value Reference Range Interpretation Comme nts GLUCOSE BEDSIDE TESTING (karen t code = GLUBED) 80 MG/DL 70-119 N BASIC METABOLIC [id number] 05:12:00* Test Item Value Reference Range Interpretation [...] 2.0 <2.0 indicates None DetectedPerformed At: [facility] [address] [id number] Michael Reeves MD Ph:[phone] GLUCOSE BEDSIDE [id number] 19:51:00* Test Item Value Reference Range Interpretation Comme nts GLUCOSE BEDSIDE TESTING (karen t code = GLUBED) 129 MG/DL 70-119 H OSMOLALITY [id number] 17:56:00* Test Item Value Reference Range Interpretation Comme nts OSMOLALITY SERUM (test code = OSMO) 269 mOsm/kg 275-300 L THYROID STIMULATING [id number] 17:56:00* Test Item Value Reference Range Interpretation Comme nts THYROID STIMULATING HORMONE (test code = TSH) 4.190 mc IU/ML 0.340-4.820 N GLUCOSE BEDSIDE [id number] 15:49:00* Test Item Value Reference Range Interpretation [...] code = VALP) 37.5 mcG/ML 50.0-100.0 L [id number] 14:26:00* Test Item Value Reference Range Interpretation Comme nts AMMONIA (test code = AMM) 29.0 mcMOL/L 11.0-32.0 N GLUCOSE BEDSIDE [id number] 11:51:00* Test Item Value Reference Range Interpretation Comme nts GLUCOSE BEDSIDE TESTING (karen t code = GLUBED) 88 MG/DL 70-119 N GLYCOSYLATED HEMOGLOBIN (HA1C)2022-09-18 06:53:00* Test Item Value Reference Range Interpretation Comme nts GLYCOSYLATED HEMOGLOBIN (HA1 C) (test code = GLYHGB) 5.2 % IS-A1C 4.5-5.6 N ESTIMATED AVERAGE [id number] 06:53:00* Test Item Value Reference Range Interpretation [...] to interpret this result as normal/abnormal. UR [id number] 21:28:00* Test Item Value Reference Range Interpretation Comme nts UR SODIUM RANDOM (test code = JESUSITA) 93 mmol/L 40-200 N UR POTASSIUM RANDOM (test code = KU) 54.8 mmol/L 25-125 N NO ESTABLISHED NORMAL RANGES FOR RANDOM SPECIMENS. UR CHLORIDE RANDOM (test code = CLU) 164 mmol/L 110-150 H UR OSMOLALITY [id number] 21:28:00* Test Item Value Reference Range Interpretation Comme nts UR OSMOLALITY RANDOM (test c ode = OSMOU) 475 mOsm/kg 100-1400 N CBC W/O [id number] 20:05:00* Test Item Value Reference Range Interpretation [...] = MPV) 9.5 fL 6.8-11.2 N LACTIC [id number] 19:35:00* Test Item Value Reference Range Interpretation Comme nts LACTIC ACID (test code = LACT) 1.0 mmol/L 0.4-2.0 N HCG SERUM [id number] 19:31:00* Test Item Value Reference Range Interpretation Comme nts HCG SERUM QUAL (test code = HCGQL) Negative SCREEN NEG - CT HEAD/BRAIN W/O [id number] 18:59:00 [facility] 1975 Sex: F Patient Name: BHUMIKA JONES Unit No: [id number] EXAMS: CPT CODE: [id number] CT HEAD/BRAIN W/O CONT [id number] Location: H3 CT head, conducted on 09/17/22 at 1837 hours COMPARISON EXAMS:Head CT exam of09/17/22 at 00:06 hours TECHNIQUE: CT examination of the brain was performed without contrast on [facility] scanner. Scanning conducted from skull base [...] Marie(Abner)(CT) CTDI: DLP: Trnscrpt: 09/17/2022 (1858) NadiyaDAS6 [facility] [place] NAME: SILAS JONES[address] PHYS: Valentina Mattson MD [place], [place] [address] : 1975 AGE: 47 SEX: F LOC: JOSHUA 20 PHONE #: [phone] EXAM DATE: 09/17/2022 STATUS: ADM IN FAX #: [phone] RAD #: D/C DT PAGE 1 Signed Report Patient Name: BHUMIKA JONES Unit No: [id number] EXAMS: CPT CODE: [id number] CT HEAD/BRAIN W/O CONT 37149 (Continued) Orig Print D/T: S: 09/17/2022 (1902) DENIZ Lugo NAME: ROBERT[address] PHYS: Valentina Mattson MD, [place] [address] : 1975 AGE: 47 SEX: F LOC: B.ERMED 20 PHONE #: [phone] EXAM DATE: 09/17/2022 STATUS: ADM IN FAX #: [phone] RAD #: D/C DT PAGE 2 Signed ReportURINALYSIS [id number] 16:28:00* Test Item Value Reference Range Interpretation [...] >0 /UL NONE-SQepi DRUGS OF ABUSE SCREEN [id number] 16:28:00* Test Item Value Reference Range Interpretation [...] interpret this result as normal/abnormal. TROP-I HIGH [id number] 16:26:00* Test Item Value Reference Range Interpretation [...] and URLs may vary bymethod. BASIC METABOLIC [id number] 16:25:00* Test Item Value Reference Range Interpretation [...] interpret this result as normal/abnormal. HEPATIC FUNCTION [id number] 16:25:00* Test Item Value Reference Range Interpretation [...] ode = CK) 92 Unit/L 26-192 N [id number] 16:25:00* Test Item Value Reference Range Interpretation Comme nts LIPASE (test code = LIP) 57 Unit/L 114-286 L - CT HEAD/BRAIN W/O [id number] 00:32:00 [facility] Refugio: BHUMIKA JONES : 1975 Sex: F Patient Name: BHUMIKA JONES Unit No: [id number] EXAMS: CPT CODE: [id number] CT HEAD/BRAIN W/O CONT 37519 EXAM: - CT HEAD/BRAIN W/O CONT LOCATION: [...] August CTDI: DLP: Trnscrpt: 09/17/2022 (31) Azael.MKW1 [facility] [place] NAME: BHUMIKA JONES [address] [place] [address] PHYS: [email or web address] - Asim Jack MD, [place] [address] : 1975 AGE: 47 SEX: F LOC: MARCOS PHONE #: [phone] EXAM DATE: 09/16/2022 STATUS: REG ER FAX #: [phone] RAD #: D/C DT PAGE1 Signed Report Patient Name: BHUMIKA JONES Unit No: [id number] EXAMS: CPT CODE: [id number] CT HEAD/BRAIN W/O CONT 36913 (Continued) Orig Print D/T: S: 09/17/2022 (0035) DENIZ Lugo NAME: SILAS JONES[address] PHYS: Asim Perera MD, [place] [address] : 1975 AGE: 47 SEX: F LOC: GregorioERS PHONE #: [phone] EXAM DATE: 09/16/2022 STATUS: REG ER FAX #: [phone] RAD #: D/C DT PAGE 2 Signed ReportTROP-I HIGH [id number] 00:13:00* Test Item Value Reference Range Interpretation [...] and URLs may vary bymethod. COMPREHENSIVE METABOLIC [id number] 00:11:00* Test Item Value Reference Range Interpretation [...] interpret this result as normal/abnormal. CBC W/AUTO [id number] 23:59:00* Test Item Value Reference Range Interpretation [...] K/mm3 0.0-0.05 N - XR CHEST 1 [id number] 23:34:00 [facility] [place]: BHUMIKA JONES : 1975 Sex: FMaxwell: [address]: PRE -- Patient Name: BHUMIKA JONES Unit No: [id number] EXAMS: CPT CODE: [id number] XR CHEST 1 V 76747 EXAMINATION: - XR CHEST 1 V CLINICAL [...] By: NadiyaJH12 Orig Print D/T: S: 09/16/2022 (456) DENIZ Lugo NAME: ROBERT[address] PHYS: [email or web address] - [place], [place] [address] : 1975 AGE: 47 SEX: F LOC: B.ERS PHONE #: [phone] EXAM DATE: 09/16/2022 STATUS: PRE ER FAX #: [phone] RAD NO: DC Dt: PAGE 1 Signed ReportCARBAMAZEPINE (TEGRETOL) 2022-09-15 06:12:00* Test Item Value Reference Range Interpretation Comme nts CARBAMAZEPINE (TEGRETOL) (test code = CARB) 1.5 ug/mL 4.0-12.0 L In conjunction w ith other antiepileptic drugs Therapeutic 4.0 - 8.0 Toxicity 9.0 - 12.0 Carbamazepine alone Therapeutic 8.0 - 12.0 Detection Limit = 2.0 <2.0 indicates None DetectedPerformed At: [facility] [address] [id number] Michael Reeves MD Ph:[phone] VALPROIC ACID (DEPAKENE)2022-09-15 06:12:00* Test Item Value Reference Range Interpretation Comme nts VALPROIC ACID (DEPAKENE) (te st code = VALP) 80.6 mcG/ML 50.0-100.0 N COMPREHENSIVE METABOLIC [id number] 06:00:00* Test Item Value Reference Range Interpretation [...] interpret this result as normal/abnormal. CBC W/AUTO [id number] 05:37:00* Test Item Value Reference Range Interpretation [...] NRBC#) 0.00 K/mm3 0.0-0.05 N GLUCOSE BEDSIDE [id number] 20:03:00* Test Item Value Reference Range Interpretation Comme nts GLUCOSE BEDSIDE TESTING (karen t code = GLUBED) 117 MG/DL 70-119 N DRUGS OF ABUSE SCREEN [id number] 11:42:00* Test Item Value Reference Range Interpretation [...] result as normal/abnormal. - CT HEAD/BRAIN W/O [id number] 11:37:00 [facility] BH[facility]ONES : 1975 Sex: F Patient Name: BHUMIKA JONES Unit No: [id number] EXAMS: CPT CODE: [id number] CT HEAD/BRAIN W/O CONT 97311 EXAMINATION: - CT HEAD/BRAIN W/O CONT COMPARISON: None HISTORY: Seizure LOCATION CODE: [id number]: CT of the Brain without contrast. Axial [...] ASUNCION CASTELLANO CTDI: DLP: Trnscrpt: 09/14/2022 (1137) [email or web address] [facility] [place] NAME: BHUMIKA JONES [facility] PHYS: Vladimir Menchaca MD [address] [place] [address] BLVD : 1975 AGE: 47 SEX: F [place], [place] [address] LOC: NEHA Cintron PHONE #: [phone] EXAM DATE: 09/14/2022 STATUS: ADM IN FAX #: [phone] RAD #: D/C DT PAGE 1 Signed Report Patient Name: BHUMIKA JONES Unit No: [id number] EXAMS: CPT CODE: [id number] CT HEAD/BRAIN W/O CONT 46776 (Continued) Orig Print D/T: S: 09/14/2022 (1140) DENIZ Lugo NAME: BHUMIKA JONES [facility] PHYS: Vladimir Menchaca MD [address] [place] [address] : 1975 AGE: 47 SEX: F [place], [place] [address] LOC: NEHA Cintron PHONE #: [phone] EXAM DATE: 09/14/2022 STATUS: ADM IN FAX #: [phone] RAD #: D/C DT PAGE 2 Signed Report PT AND [id number] 06:51:00* Test Item Value Reference Range Interpretation [...] AVOIDED DUE TO POSSIBLE HEPARINCONTAMINATION HCG SERUM [id number] 06:51:00* Test Item Value Reference Range Interpretation [...] CK) 268 Unit/L 26-192 H CBC W/AUTO [id number] 03:43:00* Test Item Value Reference Range Interpretation [...] = NRBC#) 0.00 K/mm3 0.0-0.05 N URINALYSIS [id number] 03:41:00* Test Item Value Reference Range Interpretation [...] RARE /LPF NONE - XR CHEST 2 [id number] 02:06:00 [facility] BHUM[facility]A JONES : 1975 Sex: F FAX: Suleman Carvalho [phone] Maxwell: [address]: REG Patient Name: BHUMIKA JONES Unit No: [id number] EXAMS: CPT CODE: [id number] XR CHEST 2 V 57807 EXAM: - XR CHEST 2 V HISTORY: [...] NadiyaMKM4 Orig Print D/T: S: 09/14/2022 (0209) [facility] NAME: SILAS JONESPCION [address] [place] [address] Blvd PHYS: Suleman [place], [place] [address] : 1975 AGE: 47 SEX: F LOC: MARCOS PHONE #: [phone] EXAM DATE: 09/14/2022 STATUS: REG ERFAX #: [phone] RAD NO: DC Dt: PAGE 1 Signed ReportCOMPREHENSIVE METABOLIC [id number] 12:49:00* Test Item Value Reference Range Interpretation [...] used to interpret this result as normal/abnormal. [id number] 12:49:00* Test Item Value Reference Range Interpretation Comme nts MAGNESIUM (test code = MAG) 1.7 MG/DL 1.6-2.6 N CBC W/AUTO [id number] 12:36:00* Test Item Value Reference Range Interpretation [...] RARE /LPF NONE DRUGS OF ABUSE SCREEN [id number] 00:33:00* Test Item Value Reference Range Interpretation [...] 300 ng/mL UA RFLX MICR CULT IF [id number] 00:30:00* Test Item Value Reference Range Interpretation [...] culture: Suprapubic PainSpecimen Description: CLEAN CATCHBASIC METABOLIC [id number] 00:18:00* Test Item Value Reference Range Interpretation [...] 8.9 mg/dl 8.0-10.5 N HEPATIC FUNCTION PANEL [id number] 00:18:00* Test Item Value Reference Range Interpretation [...] ALKP) 113 Units/L 50.0-136.0 N HCG SERUM [id number] 00:18:00* Test Item Value Reference Range Interpretation Comme nts HCG SERUM QUAL (test code = HCGQL) NEGATIVE NEGATIVE [id number] 00:18:00* Test Item Value Reference Range Interpretation Comme nts ALCOHOL (test code = ALC) 0.00 gm/dL 0.00-0.00 N ETHYL [facility]HOL [facility]PRETATION: 0.050 GM/DL - NOT INTOXICATED 0.100 GM/DL - INTOXICATED 0.350-0.450 GM/DL - SEVERELY INTOXICATED 0.550 GM/DL- FATAL INTOXICATION Coronavirus 2019 nCoV Kuebpum4631-01-00 00:09:00* Test Item Value Reference Range Interpretation Comme nts Coronavirus 2019 nCoV Bedside (test code = [id number]) Negative NEGATIVE Negative results should be treated as presumptive and ifinconsistent with clinical signs and symptoms, or necessaryfor patient management, should be tested with an alternativemolecular assay. Negative results do not preclude PETN-TrJ-1jjraqrtcg and should not be used as the sole basis forpatient management decisions. Negative results should beconsidered in the context of a patient's recent exposures,history, presence of clinical signs and symptoms consistentwith COVID-19. CBC W/AUTO [id number] 23:58:00* Test Item Value Reference Range Interpretation [...] X10 3uL 0.00-0.01 N COMP. METABOLIC PANEL (94250)2022-09-07 02:12:41* Test Item Value Reference Range Interpretation Comme nts NA (test code = 2930768570) 133 mmol/L 135-145 L K (test code = 3525225176) 4.4 mmol/L 3.5-5.0 CL (test code = 6161212519) 102 mmol/L 98-108 CO2 TOTAL (test code = 0262796386) 25 mmol/L 23-31 AGAP (test code = 9213652032) 6 2-16 BUN (test code = 6573859996) 22 mg/dL 7-23 GLUCOSE (test code = 9211433027) 97 mg/dL 70-110 CREATININE (test code = 8785652306) 0.40 mg/dL 0.50-1.04 L TOTAL BILI (test code = 1234000164) 0.3 mg/dL 0.1-1.1 CALCIUM (test code = 8039734264) 8.9 mg/dL 8.6-10.6 T PROTEIN (test code = 5395321413) 7.7 g/dL 6.3-8.2 ALBUMIN (test code = 2998293002) 4.0 g/dL 3.5-5.0 ALK PHOS (test code = 2093195274) 104 U/L 34-122 ALTv (test code = 1742-6) 15 U/L 5-35 AST(SGOT) (test code = 4462333968) 22 U/L 13-40 eGFR (test code = 4094659729) 170.4 mL/min/1.73m2 HANNAH (test code = HANNAH) [...] imaging tests). Lab Interpretation (test code = 05210-7) Abnormal General acute hospital WITH [id number] 02:01:20* Test Item Value Reference Range Interpretation Comme nts WBC (test code = 6690-2) 6.17 See_Comment [Automated [employer]] The system which generated this result transmitted reference range: 4.30 - 11.10 10*3/?L. The reference range was not used to interpret this result as normal/abnormal. RBC (test code = 789-8) 3.73 See_Comment L [Automated [employer]] The system which generated this result transmitted [...] 32.9 g/dL 31.6-35.1 RDW-SD (test code = 50186-9) 48.1 fL 39.0-49.9 RDW-CV (test code = 788-0) 14.7 % 12.0-15.5 PLT (test code = 777-3) 272 See_Comment [Automated messa ge] The system which generated this result transmitted reference range: 166 - 358 10*3/?L. The reference range was not used to interpret this result as normal/abnormal. MPV (test code = 05557-7) 9.6 fL 9.5-12.9 NRBC/100 WBC (test code = 6669169048) 0.0 See_Comment [Automated [employer] ssage] The system which generated this result transmitted reference range: 0.0 - 10.0 /100 WBCs. The reference range was not used to interpret this result as normal/abnormal. NRBC x10^3 (test code = 5622583271) See_Comment [Automated messa ge] The system which generated this result transmitted reference range: 10*3/?L. The reference range was not used to interpret this result as normal/abnormal. GRAN MAT (NEUT) % (test code = 770-8) 42.2 % IMM GRAN % (test code = 8270146681) 0.20 % LYMPH % (test code = 736-9) 38.2 % MONO % (test code = 5905-5) 12.6 % EOS % (test code = 713-8) 5.8 % BASO % (test code = 706-2) 1.0 % GRAN MAT x10^3(ANC) (test code = 2243807874) 2.60 10*3/uL 1.88-7.09 IMM GRAN x10^3 (test code = 4764556009) 0.00-0.06 LYMPH x10^3 (test code = 731-0) 2.36 10*3/uL 1.32-3.29 MONO x10^3 (test code = 742-7) 0.78 10*3/uL 0.33-0.92 EOS x10^3 (test code = 711-2) 0.36 10*3/uL 0.03-0.39 BASO x10^3 (test code = 704-7) 0.06 10*3/uL 0.01-0.07 Lab Interpretation (test code = 73285-1) Abnormal [facility] (COVID-[facility]) by RT-PCR (HIGH RISK) 2020-08-19 00:00:00* Test Item Value Reference Range Interpretation Comme nts SARS-CoV-2 INTERPRETATION (t est code = 59379) NEGATIVE SOURCE (test code = 10702) NOT SPECIFIED Henry Quiles QxkemzIBQX-XcF-4 (COVID-19) by RT-PCR (HIGH RISK)2020-08-19 00:00:00* Test Item Value Reference Range Interpretation Comme nts SARS-CoV-2 INTERPRETATION (t est code = 81463) NEGATIVE SOURCE (test code = 12069) NOT SPECIFIED Henry Quiles OclyftDZTY-GdC-0 (COVID-19) by RT-PCR (HIGH RISK)2020-08-19 00:00:00* Test Item Value Reference Range Interpretation Comme nts SARS-CoV-2 INTERPRETATION (t est code = 72634) NEGATIVE SOURCE (test code = 67651) NOT SPECIFIED Henry Quiles ApdsbqHZRP-DpD-6 (COVID-19) by RT-PCR (HIGH RISK)2020-08-19 00:00:00* Test Item Value Reference Range Interpretation Comme nts SARS-CoV-2 INTERPRETATION (t est code = 88373) NEGATIVE SOURCE (test code = 21552) NOT SPECIFIED Henry Quiles AustinHPV HIGH RISK WITH GENOTYPE, [id number] 00:00:00* Test Item Value Reference Range Interpretation Comme [facility] HPV HIGH RISK INTERP (test c ode = 08221) NEGATIVE HPV 16 (test code = 60774) NEGATIVE HPV 18 (test code = 42110) NEGATIVE HPV, HR, OTHER GENOTYPES (te st code = 66709) NEGATIVE Henry Quiles JasonP TEST, THINPREP, [id number] 00:00:00* Test Item Value Reference Range Interpretation Comme nts SOURCE: (test code = 8001) Cervical/Endocervical SLIDES: (test code = 8011) 1 LMP: (test code = 8021) 06/2017 SPECIMEN ADEQUACY: (test code = 27725) (NOTE) INTERPRETATION: (test code = 71420) NILM/NO EPITH. ABNORMALITY;SEE BELOW SUPERVISOR SOAKERS: (test code = 8101) KANA Hamlin(ASCP) IAC LOCATION: (test code = 73431) (NOTE) CPT: (test code = 8140) (NOTE) Henry Quiles AustinHPV HIGH RISK WITH GENOTYPE, [id number] 00:00:00* Test Item Value Reference Range Interpretation Comme nts HPV HIGH RISK INTERP (test c ode = 73600) NEGATIVE HPV 16 (test code = 92076) NEGATIVE HPV 18 (test code = 93953) NEGATIVE HPV, HR, OTHER GENOTYPES (te st code = 26757) NEGATIVE Henry Quiles AustinPAP TEST, THINPREP, [id number] 00:00:00* Test Item Value Reference Range Interpretation Comme nts SOURCE: (test code = 8001) Cervical/Endocervical SLIDES: (test code = 8011) 1 LMP: (test code = 8021) 06/2017 SPECIMEN ADEQUACY: (test code = 35681) (NOTE) INTERPRETATION: (test code = 77279) NILM/NO EPITH. ABNORMALITY;SEE BELOW SUPERVISOR SOAKERS: (test code = 8101) [place], [place](ASCP) IAC LOCATION: (test code = 59426) (NOTE) CPT: (test code = 8140) (NOTE) Henry Quiles AustinHPV HIGH RISK WITH GENOTYPE, [id number] 00:00:00* Test Item Value Reference Range Interpretation Comme nts HPV HIGH RISK INTERP (test c ode = 15463) NEGATIVE HPV 16 (test code = 06543) NEGATIVE HPV 18 (test code = 17020) NEGATIVE HPV, HR, OTHER GENOTYPES (te st code = 70378) NEGATIVE Henry ContrerasPAP TEST, THINPREP, [id number] 00:00:00* Test Item Value Reference Range Interpretation Comme nts SOURCE: (test code = 8001) Cervical/Endocervical SLIDES: (test code = 8011) 1 LMP: (test code = 8021) 06/2017 SPECIMEN ADEQUACY: (test code = 87381) (NOTE) INTERPRETATION: (test code = 78810) NILM/NO EPITH. ABNORMALITY;SEE BELOW SUPERVISOR SOAKERS: (test code = 8101) [place], [place](ASCP) IAC LOCATION: (test code = 18739) (NOTE) CPT: (test code = 8140) (NOTE) Henry Quiles AustinHPV HIGH RISK WITH GENOTYPE, [id number] 00:00:00* Test Item Value Reference Range Interpretation Comme nts HPV HIGH RISK INTERP (test c ode = 92276) NEGATIVE HPV 16 (test code = 24328) NEGATIVE HPV 18 (test code = 34794) NEGATIVE HPV, HR, OTHER GENOTYPES (te st code = 44293) NEGATIVE Henry ContrerasPAP TEST, THINPREP, [id number] 00:00:00* Test Item Value Reference Range Interpretation Comme nts SOURCE: (test code = 8001) Cervical/Endocervical SLIDES: (test code = 8011) 1 LMP: (test code = 8021) 06/2017 SPECIMEN ADEQUACY: (test code = 55400) (NOTE) INTERPRETATION: (test code = 92239) NILM/NO EPITH. ABNORMALITY;SEE BELOW SUPERVISOR SOAKERS: (test code = 8101) KANA Hamlin(ASCP) IAC LOCATION: (test code = 19589) (NOTE) CPT: (test code = 8140) (NOTE) Henry ContrerasCT HEAD WO [id number] 22:34:12Impression: 1. ?No acute intracranial process. 2. [...] he patient. Please correlate with history and physicalexamination.[facility] CERV[facility] SP[facility] 2 [id number] 22:29:40No acute osseous abnormality. Preliminary Report Dictated [...] reviewed this study and agree with theabove report.[facility] CenterCBC WITH HPXZZYRDNVNJ8138-45-43 21:46:00* Test Item Value Reference Range Interpretation [...] 32.2 g/dL 31.6-35.1 RDW-SD (test code = 98150-9) 45.1 fL 39-49.9 RDW-CV (test code = 788-0) 14.6 % 12-15.5 PLT (test code = 777-3) See_Comment L [Automated messa ge] The system which generated this result transmitted reference range: 166 - 358 10*3/?L. The reference range was not used to interpret this result as normal/abnormal. MPV (test code = 58586-3) 9.0 fL 9.5-12.9 L NRBC/100 WBC (test code = 9233364635) See_Comment [Automated [employer] ssage] The system which generated this result transmitted reference range: 0.0 - 10.0 /100 WBCs. The reference range was not used to interpret this result as normal/abnormal. NRBC x10^3 (test code = 3026568952) <0.01 See_Comment [Automated messa ge] The system which generated this result transmitted reference range: 10*3/?L. The reference range was not used to interpret this result as normal/abnormal. GRAN MAT (NEUT) % (test code = 770-8) 51.3 % IMM GRAN % (test code = 3709712962) 0.40 % LYMPH % (test code = 736-9) 24.4 % MONO % (test code = 5905-5) 23.1 % EOS % (test code = 713-8) 0.4 % BASO % (test code = 706-2) 0.4 % GRAN MAT x10^3(ANC) (test code = 3640661921) 2.48 10*3/uL 1.88-7.09 IMM GRAN x10^3 (test code = 3566968793) <0.03 0-0.06 LYMPH x10^3 (test code = 731-0) 1.18 10*3/uL 1.32-3.29 L MONO x10^3 (test code = 742-7) 1.12 10*3/uL 0.33-0.92 H EOS x10^3 (test code = 711-2) <0.03 0.03-0.39 L BASO x10^3 (test code = 704-7) <0.03 0.01-0.07 Lab Interpretation (test code = 58016-2) Abnormal [facility] 2 [id number] 03:28:03No acute osseous abnormality. Preliminary Report Dictated [...] this study and agree withthe above report. [facility] CenterValproic Acid Qhkeq0505-68-87 08:03:22* Test Item Value Reference Range Interpretation Comme nts Valproic Acid Level (test co de = Valproic Acid Level) 57.6 ug/mL(g) 50.0-100.0 Hemoglobin [id number] 09:36:00* Test Item Value Reference Range Interpretation Comme nts Hemoglobin A1c (test code = Hemoglobin A1c) 5.0 % 4.8-5.9 Non Diabetic 4.8-5.9%Diabetic <7.0% CT Shoulder w/o Contrast Ikxh2220-20-59 16:49:13Patient: BHUMIKA JONES Date/Time01/09/2019 16:14 CDTReason for [...] Adam FSigned (Electronic Signature): 01/09/2019 4:49 pmRPR Lrrqpimnxkw3070-49-88 21:33:20* Test Item Value Reference Range Interpretation [...] 04-23-2020 N XR Shoulder Complete 2+ Views [id number] 15:41:25Patient: BHUMIKA JONES Date/Time01/07/2019 15:25 CDTReason for [...] CSigned (Electronic Signature): 01/07/2019 3:41 pmThyroid Stimulating Zczulie6107-47-25 03:07:04* Test Item Value Reference Range Interpretation Comme nts TSH (test code = TSH) 9.650 mIU/mL 0.270-4.200 H Lipid Tpksr1202-71-37 03:07:03* Test Item Value Reference Range Interpretation Comme nts Cholesterol Total (test code = Cholesterol Total) 199 mg/dL 0-200 RISK OF HEART DISEASEPublished by [place] [employer] Association Analyte Optimal Borderline Increased RiskCHOL [...] is LDL/HDL Ratio=LDL Calc/HDL Chol HCG Qualitative Qngwo1914-54-26 02:33:13* Test Item Value Reference Range Interpretation Comme nts HCG, Serum Qual (test code = HCG, Serum Qual) Negative Lot # (test code = Lot #) [id number] N Expiration Dt (test code = Expiration Dt) 2020-04-23 N Neg Control (test code = Neg Control) Negative Pos Control (test code = Pos Control) Positive Internal QC (test code = Int ernal QC) Acceptable Drugs of Abuse Urine 46059-23-03 18:58:11* Test Item Value Reference Range Interpretation [...] = Cannabinoid Screen Ur) Negative Negative Alcohol Aflsw2038-73-59 18:47:34* Test Item Value Reference Range Interpretation Comme nts Ethanol Level (test code = Ethanol Level) <0.00 g/dL 0.00-0.01 Intoxicated 0.08 0 g/dL or more Ethanol Inst (test code = Ethanol Inst) <0 N Comprehensive Metabolic Pabfv1603-71-07 18:47:33* Test Item Value Reference Range Interpretation [...] A/G Ratio) 1.0 ratio N Comprehensive Metabolic Qqgvu8514-78-90 18:47:33* Test Item Value Reference Range Interpretation [...] is not provided, and the patient is -[place]ian, multiply by 1.212. If sex is not [...] the National Kidney Foundation, http://nkdep.nih.gov Comprehensive Metabolic Iioao8207-51-25 18:47:33* Test Item Value Reference Range Interpretation [...] is not provided, and the patient is -[place]ian, multiply by 1.212. If sex is not [...] is not provided, and the patient is -[place]ian, multiply by 1.212. If sex is not [...] Kidney Foundation, http://nkdep.nih.gov Complete Blood Count with Avovbjajnfrv6839-69-50 18:15:23* Test Item Value Reference Range Interpretation [...] code = IPF) 0 % N Automated Kzmwmfulonxu7452-03-52 18:15:23* Test Item Value Reference Range Interpretation [...] B aso Absolute) 0.03 x10 0.00-0.21 IG Jqapw2947-11-65 18:15:23* Test Item Value Reference Range Interpretation Comme nts IG (test code = IG) 0.2 % 0.0-5.0 IG Abs (test code = IG Abs) 0 x10 N VALPROIC GVEA1655-25-60 00:00:00* Test Item Value Reference Range Interpretation Comme nts VALPROIC ACID (test code = 3025) 69.8 UG/ML Henry Quiles AustinVALPROIC ZCQR6593-71-14 00:00:00* Test Item Value Reference Range Interpretation Comme nts VALPROIC ACID (test code = 3025) 69.8 UG/ML Henry Quiles AustinVALPROIC ATXJ1667-36-96 00:00:00* Test Item Value Reference Range Interpretation Comme nts VALPROIC ACID (test code = 3025) 69.8 UG/ML Henry Quiles AustinVALPROIC WJDF9906-23-51 00:00:00* Test Item Value Reference Range Interpretation Comme nts VALPROIC ACID (test code = 3025) 69.8 UG/ML Henry Quiles AustinURINE CULTURE, NO [id number] 00:00:00* Test Item Value Reference Range Interpretation Comme nts URINE CULTURE, NO SENS (test code = 10725) SPECIMEN NUMBER: [id number] Henry Quiles AustinURINE CULTURE, NO [id number] 00:00:00* Test Item Value Reference Range Interpretation Comme nts URINE CULTURE, NO SENS (test code = 70673) SPECIMEN NUMBER: [id number] Henry Quiles AustinURINE CULTURE, NO [id number] 00:00:00* Test Item Value Reference Range Interpretation Comme nts URINE CULTURE, NO SENS (test code = 98689) SPECIMEN NUMBER: [id number] Henry Quiles AustinURINE CULTURE, NO [id number] 00:00:00* Test Item Value Reference Range Interpretation Comme nts URINE CULTURE, NO SENS (test code = 81334) SPECIMEN NUMBER: [id number] Henry ContrerasIRON BINDING CAPACITY AND IRON AND % [id number] 00:00:00* Test Item Value Reference Range Interpretation Comme nts IRON, SERUM (test code = 2) 42 UG/DL UNSATURATED IBC (test code = 38608) 279 UG/DL CALC TOTAL IBC (test code = 7) 321 UG/DL CALC % IRON SAT (test code = 2079) 13 % Henry F [id number] 00:00:00* Test Item Value Reference Range Interpretation Comme nts FERRITIN (test code = 5) 15 NG/ML Henry F [id number] 00:00:00* Test Item Value Reference Range Interpretation Comme nts TRANSFERRIN (test code = 4936) 269 MG/DL Henry F AustinFOLIC [id number] 00:00:00* Test Item Value Reference Range Interpretation Comme nts FOLIC ACID (test code = 2695) 5.4 UG/L Henry F AustinIRON BINDING CAPACITY AND IRON AND % [id number] 00:00:00* Test Item Value Reference Range Interpretation Comme nts IRON, SERUM (test code = 2) 42 UG/DL UNSATURATED IBC (test code = 38532) 279 UG/DL CALC TOTAL IBC (test code = 7) 321 UG/DL CALC % IRON SAT (test code = 9) 13 % Henry F [id number] 00:00:00* Test Item Value Reference Range Interpretation Comme nts FERRITIN (test code = 5) 15 NG/ML Herny F [id number] 00:00:00* Test Item Value Reference Range Interpretation Comme nts TRANSFERRIN (test code = 4936) 269 MG/DL Henry F AustinFOLIC [id number] 00:00:00* Test Item Value Reference Range Interpretation Comme nts FOLIC ACID (test code = 2695) 5.4 UG/L Henry F AustinIRON BINDING CAPACITY AND IRON AND % [id number] 00:00:00* Test Item Value Reference Range Interpretation Comme nts IRON, SERUM (test code = 2) 42 UG/DL UNSATURATED IBC (test code = 82662) 279 UG/DL CALC TOTAL IBC (test code = 7) 321 UG/DL CALC % IRON SAT (test code = 2079) 13 % Henry F [id number] 00:00:00* Test Item Value Reference Range Interpretation Comme nts FERRITIN (test code = 2075) 15 NG/ML Henry F [id number] 00:00:00* Test Item Value Reference Range Interpretation Comme nts TRANSFERRIN (test code = 4936) 269 MG/DL Henry F AustinFOLIC [id number] 00:00:00* Test Item Value Reference Range Interpretation Comme nts FOLIC ACID (test code = 2695) 5.4 UG/L Henry Etta AustinIRON BINDING CAPACITY AND IRON AND % [id number] 00:00:00* Test Item Value Reference Range Interpretation Comme nts IRON, SERUM (test code = 2222) 42 UG/DL UNSATURATED IBC (test code = 46006) 279 UG/DL CALC TOTAL IBC (test code = 2077) 321 UG/DL CALC % IRON SAT (test code = 2079) 13 % Henry Quiles [id number] 00:00:00* Test Item Value Reference Range Interpretation Comme nts FERRITIN (test code = 2075) 15 NG/ML Henry Quiles [id number] 00:00:00* Test Item Value Reference Range Interpretation Comme nts TRANSFERRIN (test code = 4936) 269 MG/DL Henry F AustinFOLIC [id number] 00:00:00* Test Item Value Reference Range Interpretation Comme nts FOLIC ACID (test code = 2695) 5.4 UG/L Henry Quiles AustinCULTURE, URINE [ADDED]2018-06-12 00:00:00* Test Item Value Reference Range Interpretation Comme nts CULTURE, URINE (test code = 18937) SPECIMEN NUMBER: [id number] Henry Quiles AustinCULTURE, URINE [ADDED]2018-06-12 00:00:00* Test Item Value Reference Range Interpretation Comme nts CULTURE, URINE (test code = 75580) SPECIMEN NUMBER: [id number] Henry Quiles AustinCULTURE, URINE [ADDED]2018-06-12 00:00:00* Test Item Value Reference Range Interpretation Comme nts CULTURE, URINE (test code = 42435) SPECIMEN NUMBER: [id number] Henry Quiles AustinCULTURE, URINE [ADDED]2018-06-12 00:00:00* Test Item Value Reference Range Interpretation Comme nts CULTURE, URINE (test code = 85531) SPECIMEN NUMBER: [id number] Henry ContrerasCBC W/AUTO [id number] 00:00:00* Test Item Value Reference Range Interpretation [...] = 1015) 184 K/UL Henry ContrerasCOMPREHENSIVE METABOLIC [id number] 00:00:00* Test Item Value Reference Range Interpretation Comme nts GLUCOSE (test code = 2217) 86 MG/DL BUN (test code = 2208) 16 MG/DL CREATININE (test code = 2214) 0.45 MG/DL eGFR AMER. (test cod e = 89824) 141 ML/MIN/1.73 eGFR NON- AMER. (test code = 37786) 122 ML/MIN/1.73 CALC BUN/CREAT (test code = [...] code = 2219) 17 U/L Henry ContrerasVALPROIC [id number] 00:00:00* Test Item Value Reference Range Interpretation Comme nts VALPROIC ACID (test code = 3025) 100.9 UG/ML Henry ContrerasCBC W/AUTO [id number] 00:00:00* Test Item Value Reference Range Interpretation [...] = 1015) 184 K/UL Henry ContrerasCOMPREHENSIVE METABOLIC [id number] 00:00:00* Test Item Value Reference Range Interpretation Comme nts GLUCOSE (test code = 2217) 86 MG/DL BUN (test code = 2208) 16 MG/DL CREATININE (test code = 2214) 0.45 MG/DL eGFR AMER. (test cod e = 14443) 141 ML/MIN/1.73 eGFR NON- AMER. (test code = 26564) 122 ML/MIN/1.73 CALC BUN/CREAT (test code = [...] code = 2219) 17 U/L Henry ContrerasVALPROIC [id number] 00:00:00* Test Item Value Reference Range Interpretation Comme nts VALPROIC ACID (test code = 3025) 100.9 UG/ML Henry ContrerasCBC W/AUTO [id number] 00:00:00* Test Item Value Reference Range Interpretation [...] = 1015) 184 K/UL Henry ContrerasCOMPREHENSIVE METABOLIC [id number] 00:00:00* Test Item Value Reference Range Interpretation Comme nts GLUCOSE (test code = 2217) 86 MG/DL BUN (test code = 2208) 16 MG/DL CREATININE (test code = 2214) 0.45 MG/DL eGFR AMER. (test cod e = 10110) 141 ML/MIN/1.73 eGFR NON- AMER. (test code = 08996) 122 ML/MIN/1.73 CALC BUN/CREAT (test code = [...] code = 2219) 17 U/L Henry ContrerasVALPROIC [id number] 00:00:00* Test Item Value Reference Range Interpretation Comme nts VALPROIC ACID (test code = 3025) 100.9 UG/ML Henry Quiles BenCBC W/AUTO [id number] 00:00:00* Test Item Value Reference Range Interpretation [...] 1015) 184 K/UL Henry Quiles BenCOMPREHENSIVE METABOLIC [id number] 00:00:00* Test Item Value Reference Range Interpretation Comme nts GLUCOSE (test code = 2217) 86 MG/DL BUN (test code = 2208) 16 MG/DL CREATININE (test code = 2214) 0.45 MG/DL eGFR AMER. (test cod e = 18021) 141 ML/MIN/1.73 eGFR NON- AMER. (test code = 67534) 122 ML/MIN/1.73 CALC BUN/CREAT (test code = [...] MG/DL ALKALINE PHOSPHATASE (test code = 4) 76 U/L AST (test code = 2218) 24 U/L ALT (test code = 2219) 17 U/L Henry Quiles AustinVALPROIC [id number] 00:00:00* Test Item Value Reference Range Interpretation Comme nts VALPROIC ACID (test code = 3025) 100.9 UG/ML Henry Etta BenPAP TEST, THINPREP, [id number] 00:00:00* Test Item Value Reference Range Interpretation Comme nts SOURCE: (test code = 8001) Cervical/Endocervical SLIDES: (test code = 8011) 1 LMP: (test code = 8021) 03/2017 SPECIMEN ADEQUACY: (test code = 61202) (NOTE) INTERPRETATION: (test code = 21032) NO EPITHELIAL ABNORMALITY SEE BELOW SUPERVISOR SOAKERS: (test code = 8101) KANA Merida(ASCP)IAC LOCATION: (test code = 25546) (NOTE) CPT: (test code = 8140) (NOTE) Henry Etta BenHPV HIGH RISK WITH GENOTYPE, [id number] 00:00:00* Test Item Value Reference Range Interpretation Comme nts HPV HIGH RISK INTERP (test c ode = 32130) NEGATIVE HPV 16 (test code = 84740) NEGATIVE HPV 18 (test code = 64821) NEGATIVE HPV, HR, OTHER GENOTYPES (te st code = 62424) NEGATIVE Henry Etta BenPAP TEST, THINPREP, [id number] 00:00:00* Test Item Value Reference Range Interpretation Comme nts SOURCE: (test code = 8001) Cervical/Endocervical SLIDES: (test code = 8011) 1 LMP: (test code = 8021) 03/2017 SPECIMEN ADEQUACY: (test code = 37615) (NOTE) INTERPRETATION: (test code = 66180) NO EPITHELIAL ABNORMALITY SEE BELOW SUPERVISOR SOAKERS: (test code = 8101) KANA Merida(ASCP)IAC LOCATION: (test code = 52665) (NOTE) CPT: (test code = 8140) (NOTE) Henry Quiles AustinHPV HIGH RISK WITH GENOTYPE, [id number] 00:00:00* Test Item Value Reference Range Interpretation Comme nts HPV HIGH RISK INTERP (test c ode = 56726) NEGATIVE HPV 16 (test code = 43752) NEGATIVE HPV 18 (test code = 62982) NEGATIVE HPV, HR, OTHER GENOTYPES (te st code = 79534) NEGATIVE Henry ContrerasPAP TEST, THINPREP, [id number] 00:00:00* Test Item Value Reference Range Interpretation Comme nts SOURCE: (test code = 8001) Cervical/Endocervical SLIDES: (test code = 8011) 1 LMP: (test code = 8021) 03/2017 SPECIMEN ADEQUACY: (test code = 32986) (NOTE) INTERPRETATION: (test code = 99965) NO EPITHELIAL ABNORMALITY SEE BELOW SUPERVISOR SOAKERS: (test code = 8101) KANA Merida(ASCP)IAC LOCATION: (test code = 89189) (NOTE) CPT: (test code = 8140) (NOTE) Henry F AustinHPV HIGH RISK WITH GENOTYPE, [id number] 00:00:00* Test Item Value Reference Range Interpretation Comme nts HPV HIGH RISK INTERP (test c ode = 71514) NEGATIVE HPV 16 (test code = 28850) NEGATIVE HPV 18 (test code = 63122) NEGATIVE HPV, HR, OTHER GENOTYPES (te st code = 61567) NEGATIVE Henry F AustinPAP TEST, THINPREP, [id number] 00:00:00* Test Item Value Reference Range Interpretation Comme nts SOURCE: (test code = 8001) Cervical/Endocervical SLIDES: (test code = 8011) 1 LMP: (test code = 8021) 03/2017 SPECIMEN ADEQUACY: (test code = 51174) (NOTE) INTERPRETATION: (test code = 87377) NO EPITHELIAL ABNORMALITY SEE BELOW SUPERVISOR SOAKERS: (test code = 8101) Santi Elizondo, CT(ASCP)IAC LOCATION: (test code = 76019) (NOTE) CPT: (test code = 8140) (NOTE) Henry Quiles AustinHPV HIGH RISK WITH GENOTYPE, [id number] 00:00:00* Test Item Value Reference Range Interpretation Comme nts HPV HIGH RISK INTERP (test c ode = 30299) NEGATIVE HPV 16 (test code = 54920) NEGATIVE HPV 18 (test code = 57910) NEGATIVE HPV, HR, OTHER GENOTYPES (te st code = 34351) NEGATIVE Henry Quiles AustinHIV AB/AG COMBO RFLX [id number] 00:00:00* Test Item Value Reference Range Interpretation Comme nts HIV 1/2 4TH GEN, RFLX CONF ( test code = 3514) NON-REACTIVE Henry F AustinGC AND CHLAMYDIA AMPLIFIED, [id number] 00:00:00* Test Item Value Reference Range Interpretation Comme nts GONORRHEA, TMA (test code = 55166) NEGATIVE CHLAMYDIA, TMA (test code = 29313) NEGATIVE Henry F AustinGC AND CHLAMYDIA AMPLIFIED, [id number] 00:00:00* Test Item Value Reference Range Interpretation Comme nts GONORRHEA, TMA (test code = 91464) NEGATIVE CHLAMYDIA, TMA (test code = 08743) NEGATIVE Henry F AustinHIV AB/AG COMBO RFLX [id number] 00:00:00* Test Item Value Reference Range Interpretation Comme nts HIV 1/2 4TH GEN, RFLX CONF ( test code = 3514) NON-REACTIVE Henry F AustinHIV AB/AG COMBO RFLX [id number] 00:00:00* Test Item Value Reference Range Interpretation Comme nts HIV 1/2 4TH GEN, RFLX CONF ( test code = 3514) NON-REACTIVE Henry F AustinGC AND CHLAMYDIA AMPLIFIED, [id number] 00:00:00* Test Item Value Reference Range Interpretation Comme nts GONORRHEA, TMA (test code = 62136) NEGATIVE CHLAMYDIA, TMA (test code = 71025) NEGATIVE Henry ContrerasGC AND CHLAMYDIA AMPLIFIED, [id number] 00:00:00* Test Item Value Reference Range Interpretation Comme nts GONORRHEA, TMA (test code = 82581) NEGATIVE CHLAMYDIA, TMA (test code = 51038) NEGATIVE Henry ContrerasHIV AB/AG COMBO RFLX [id number] 00:00:00* Test Item Value Reference Range Interpretation Comme shaina HIV 1/2 4TH GEN, RFLX CONF ( test code = 3514) NON-REACTIVE Henry ContrerasLIPID [id number] 00:00:00* Test Item Value Reference Range Interpretation Comme nts CHOLESTEROL (test code = 2210) 186 MG/DL TRIGLYCERIDES (test code = 2232) 131 MG/DL HDL CHOLESTEROL (test code = 2220) 67 MG/DL CALC LDL CHOL (test code = 2237) 93 MG/DL RISK RATIO LDL/HDL (test cod e = 2238) 1.39 RATIO Henry ContrerasCBC W/AUTO [id number] 00:00:00* Test Item Value Reference Range Interpretation Comme shaina WBC (test code = 1001) 5.1 K/UL [...] code = 1015) 152 K/UL Henry ContrerasHEMOGLOBIN [id number] 00:00:00* Test Item Value Reference Range Interpretation Comme shaina HEMOGLOBIN A1c (test code = 58893) 5.2 % Henry [id number] 00:00:00* Test Item Value Reference Range Interpretation Comme nts TSH (test code = 2821) 2.020 UIU/ML Henry ContrerasCOMPREHENSIVE METABOLIC [id number] 00:00:00* Test Item Value Reference Range Interpretation Comme nts GLUCOSE (test code = 2217) 90 MG/DL BUN (test code = 2208) 21 MG/DL CREATININE (test code = 2214) 0.42 MG/DL eGFR AMER. (test cod e = 07884) 145 ML/MIN/1.73 eGFR NON- AMER. (test code = 32458) 126 ML/MIN/1.73 CALC BUN/CREAT (test code = [...] code = 2219) <5 U/L Henry ContrerasLIPID [id number] 00:00:00* Test Item Value Reference Range Interpretation Comme nts CHOLESTEROL (test code = 2210) 186 MG/DL TRIGLYCERIDES (test code = 2232) 131 MG/DL HDL CHOLESTEROL (test code = 2220) 67 MG/DL CALC LDL CHOL (test code = 2237) 93 MG/DL RISK RATIO LDL/HDL (test cod e = 2238) 1.39 RATIO Henry ContrerasCBC W/AUTO [id number] 00:00:00* Test Item Value Reference Range Interpretation [...] code = 1015) 152 K/UL Henry ContrerasHEMOGLOBIN [id number] 00:00:00* Test Item Value Reference Range Interpretation Comme nts HEMOGLOBIN A1c (test code = 74034) 5.2 % Henry [id number] 00:00:00* Test Item Value Reference Range Interpretation Comme nts TSH (test code = 2821) 2.020 UIU/ML Henry ContrerasCOMPREHENSIVE METABOLIC [id number] 00:00:00* Test Item Value Reference Range Interpretation Comme nts GLUCOSE (test code = 2217) 90 MG/DL BUN (test code = 2208) 21 MG/DL CREATININE (test code = 2214) 0.42 MG/DL eGFR AMER. (test cod e = 41147) 145 ML/MIN/1.73 eGFR NON- AMER. (test code = 34833) 126 ML/MIN/1.73 CALC BUN/CREAT (test code = [...] code = 2219) <5 U/L Henry ContrerasLIPID [id number] 00:00:00* Test Item Value Reference Range Interpretation Comme nts CHOLESTEROL (test code = 2210) 186 MG/DL TRIGLYCERIDES (test code = 2232) 131 MG/DL HDL CHOLESTEROL (test code = 2220) 67 MG/DL CALC LDL CHOL (test code = 2237) 93 MG/DL RISK RATIO LDL/HDL (test cod e = 2238) 1.39 RATIO Henry ContrerasCBC W/AUTO [id number] 00:00:00* Test Item Value Reference Range Interpretation [...] code = 1015) 152 K/UL Henry ContrerasHEMOGLOBIN [id number] 00:00:00* Test Item Value Reference Range Interpretation Comme shaina HEMOGLOBIN A1c (test code = 79622) 5.2 % Henry Quiles [id number] 00:00:00* Test Item Value Reference Range Interpretation Comme nts TSH (test code = 2821) 2.020 UIU/ML Henry ContrerasCOMPREHENSIVE METABOLIC [id number] 00:00:00* Test Item Value Reference Range Interpretation Comme nts GLUCOSE (test code = 2217) 90 MG/DL BUN (test code = 2208) 21 MG/DL CREATININE (test code = 2214) 0.42 MG/DL eGFR AMER. (test cod e = 76058) 145 ML/MIN/1.73 eGFR NON- AMER. (test code = 60789) 126 ML/MIN/1.73 CALC BUN/CREAT (test code = [...] code = 2219) <5 U/L Henry Quiles YakutatLIPID [id number] 00:00:00* Test Item Value Reference Range Interpretation Comme nts CHOLESTEROL (test code = 2210) 186 MG/DL TRIGLYCERIDES (test code = 2232) 131 MG/DL HDL CHOLESTEROL (test code = 2220) 67 MG/DL CALC LDL CHOL (test code = 2237) 93 MG/DL RISK RATIO LDL/HDL (test cod e = 2238) 1.39 RATIO Henry ContrerasCBC W/AUTO [id number] 00:00:00* Test Item Value Reference Range Interpretation [...] code = 1015) 152 K/UL Henry ContrerasHEMOGLOBIN [id number] 00:00:00* Test Item Value Reference Range Interpretation Comme nts HEMOGLOBIN A1c (test code = 03886) 5.2 % Henry [id number] 00:00:00* Test Item Value Reference Range Interpretation Comme nts TSH (test code = 2821) 2.020 UIU/ML Henry ContrerasCOMPREHENSIVE METABOLIC [id number] 00:00:00* Test Item Value Reference Range Interpretation Comme nts GLUCOSE (test code = 2217) 90 MG/DL BUN (test code = 2208) 21 MG/DL CREATININE (test code = 2214) 0.42 MG/DL eGFR AMER. (test cod e = 65736) 145 ML/MIN/1.73 eGFR NON- AMER. (test code = 44322) 126 ML/MIN/1.73 CALC BUN/CREAT (test code = [...] Quiles Ben Notes Date/Time Note Provider Source [facility]2024[facility] 04:23:47 PATIENT OPEN ORDERS Code System Description Frequency Occurrences Priority [place] [id number] [facility] EKG study ONE TIME 0 Stat November 24, 2023 12:29:00 AM [facility] MAGALIE [id number] on November 24, 2023 12:29:00 AM UTC SCHEDULED PROCEDURES Code System Description Status Scheduled Date Updated By Patient scheduled procedure information is not available. 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 Role on Team Status Start Date End Date Update d By NO PCP Referring normal November 24, 2023 2:17:11 AM UTC November 25, 2023 12:04:00 AM UTC [id number] on November 24, 2023 2:17:11 AM [facility] MAGALIE BRAVO Attending normal November 24, 2023 2:17:11 AM UTC November 25, 2023 12:04:00 AM UTC [id number] on November 24, 2023 2:17:11 AM [facility] MAGALIE BRVAO Admitting normal November 24, 2023 2:17:11 AM UTC November 25, 2023 12:04:00 AM UTC [id number] on November 24, 2023 2:17:11 AM UTC NO PCP PCP normal November 24, 2023 2:17:11 AM UTC November 25, 2023 12:04:00 AM UTC [id number] on November 24, 2023 2:17:11 AM UTC [facility]2024-06-03 00:00:00 [facility]:05:13 PATIENT OPEN ORDERS Code System Description Frequency Occurrences Priority Start [place] [id number] [facility] EKG study ONE TIME 0 Stat November 24, 2023 12:29:00 AM [facility] MAGALIE BRAVO [id number] on November 24, 2023 12:29:00 AM UTC SCHEDULED PROCEDURES Code System Description Status Scheduled Date Updated By Patient scheduled procedure information is not available. 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 on Team Status Start Date End Date Update d By NO PCP Referring normal November 24, 2023 2:17:11 AM UTC November 25, 2023 12:04:00 AM UTC [id number] on November 24, 2023 2:17:11 AM [facility] MAGALIE BRAVO Attending normal November 24, 2023 2:17:11 AM UTC November 25, 2023 12:04:00 AM UTC [id number] on November 24, 2023 2:17:11 AM [facility] MAGALIE BRAVO Admitting normal November 24, 2023 2:17:11 AM [facility] November 25, 2023 12:04:00 AM [facility] [id number] on November 24, 2023 2:17:11 AM [facility] NO PCP PCP normal November 24, 2023 2:17:11 AM [facility] November 25, 2023 12:04:00 AM [facility] [id number] on November 24, 2023 2:17:11 AM [facility]2024-06-01 21:59:03[place] [address] DIAGNOSTIC IMAGING REPORT Patient Name: ROBERT, CONCEPTION Date of Service: 11-23-2023 Age: 48 Sex: F Order #: [id number] Room: [facility] : 1975 X-Ray Number: [id number] Hospital Number: [id number] Admitting Physician: LAWRENCE MEJIAS Ordering Physician: LAWRENCE [...] authenticated by ANGIE PHAM 2023-11-23 21:59:03MALA ADAMS [id number] 21:53:03[place], [place] [address] DIAGNOSTIC IMAGING REPORT Patient Name: ROBERT, CONCEPTION Date of Service: 11-23-2023 Age: 48 Sex: F Order #: [id number] Room: [facility] : 1975 X-Ray Number: [id number] Hospital Number: [id number] Admitting Physician: LAWRENCE MEJIAS Ordering Physician: LAWRENCE [...] 2023-11-23 21:53:03[facility]ON [place] [facility] 2023-10-25 00:00:00 [facility] 09:45:21 We are unable to release any pt information with out prior pt permission. However, Risperdal is not generally managed by neurology and would be best managed by psychiatrist. Robyn Durham [facility]2024-04-09 16:15:28 Copied from [facility] #[id number]. Topic: Clinical - Order >> Oct 01, 2023 4:13 PM Patient Conveyor Monitor wrote: [facility] is calling regarding medication risperdal they were givng her 3mg and stating had dropped it to 1mg trying to confirm change Call [phone] Skyler VillarrealidUTMB - [id number] 12:29:00 [facility] ([facility]) Hospitalist Discharge Summary REPORT#:[id number] REPORT STATUS: Signed DATE:10/11/22 TIME: 1229 PATIENT: BHUMIKA JONES UNIT #: [id number] ROOM/BED: [place] [address] : [birth year] AGE: 47 SEX: F ATTEND: [...] patient this morning with the help of lamp tester and inspector and she said that he lives with [...] refill, normal range of motion, no edema Neuro/CHIEF ADMINISTRATIVE OFFICER: altered mental status, alert Discharge Instructions PCP Discharge to: Home/Self Care Additional Discharge Routines: PCP Follow-Up Diet: Resume Home Diet/Feeds Activity: As Tolerated Follow-up Appointments PCP follow-up: PCP: No Primary or Family Physician PCP follow up timeframe: In 6 days at 1230 RPT #:[id number] END OF [id number] 17:27:00 [facility] ([facility]) Electroencephalogram-EEG REPORT#:[id number] REPORT STATUS: Signed DATE:09/18/22 TIME: 172 PATIENT: BHUMIKA JONES UNIT #: [id number] ROOM/BED: [place] [address] : [birth year] AGE: 47 SEX: F ATTEND: [...] BEDTIME 09/17 2100 AC 09/17 (LIPITOR) PO 04/26 2101 2145 Central Nervous System Agents Sig/Ksenia Start time Last Medication Dose Route Stop Time Status Admin Aspirin 81 MG DAILY 09/18 09 AC 09/18 (ASPIRIN) PO 10/18 900 0823 [...] open eyes (commands were obtained using a refrigeration installer) with opening the eyes the patient would [...] with the patient mentioned. at 1736 RPT #:[id number] END OF [id number] 14:24:00 [facility] Consultation Note REPORT#:[id number] REPORT STATUS: Signed DATE:09/18/22 TIME: 1424 PATIENT: BHUMIKA JONES UNIT #: [id number] ROOM/BED: [place] [address] : [birth year] AGE: 47 SEX: F ATTEND: Marly Mendenhall MD ADM AUTHOR: Nelia Parker MD * ALL edits or amendments must be made on the electronic/computer document * See Addendum History of Present Illness HPI Requesting clinician: see consult order Reason for consult: "AMS" Chief complaint: wanting to go home for her family HPI: 47-year-old female Liberian speaking only who was brought into the [...] and the patient was sent to a nursing home. Reportedly per the patient she did not like the nursing home and does not like the food [...] seizures prior to her being in the nursing home. Per the patient she get upset [...] available to confirm the history and the nursing home location is unknown to contact someone [...] Room air 09/18 112 Temp 98.2 09/18 112 Pulse 64 09/18 [...] MG 09/18 09/18 09/17 09/17 0553 0553 8020 1513 Chemistry Hemoglobin A1c (4.5 - 5.6 [...] - 8.0 pH UNITS) 6.5 Ur Specific [place] (1.001 - 1.035 SG) 1.013 Urine Protein [...] the past or not. at 1652 RPT #:[id number] END OF [id number] 11:44:00 [facility] ([facility]) Hospitalist Progress Note REPORT#:[id number] REPORT STATUS: Signed DATE:09/18/22 TIME: 1144 PATIENT: BHUMIKA JONES UNIT #: [id number] ROOM/BED: [place] [address] : [birth year] AGE: 47 SEX: F ATTEND: [...] patient this morning with the help of lamp tester and inspector and she said that he lives with [...] refill, normal range of motion, no edema Neuro/CHIEF ADMINISTRATIVE OFFICER: altered mental status, alert Diagnosis, Assessment [...] afternoon if remains stable at 1147 RPT #:[id number] END OF [id number] 01:06:00 [facility] ([facility]) Hospitalist History Physical REPORT#:[id number] REPORT STATUS: Signed DATE:09/18/22 TIME: 0106 PATIENT: BHUMIKA JONES UNIT #: [id number] ROOM/BED: [place] [address] : [birth year] AGE: 47 SEX: F ATTEND: [...] - 8.0 pH UNITS) 6.5 Ur Specific [place] (1.001 - 1.035 SG) 1.013 Urine Protein [...] rhythm Respiratory: decreased breath sounds Abdomen: soft Neuro/CHIEF ADMINISTRATIVE OFFICER: altered mental status, alert Diagnosis, Assessment [...] management by incoming thereafter at 0110 RPT #:[id number] END OF [id number] 14:34:00 [facility] ([facility]) EMERGENCY PROVIDER REPORT REPORT#:[id number] REPORT STATUS: Signed DATE:09/17/22 TIME: 1433 PATIENT: BHUMIKA JONES UNIT #: [id number] ROOM/BED: [place] [address] AGE: 47 SEX: F PCP PHYS: No Primary or Family Physician SERVICE AUTHOR: Valentina Samayoa MD * ALL edits or amendments must be made on the electronic/computer document * HPI-General Illness Free Text HPI Notes Free Text HPI Notes 47-year-old female presents after possible seizure episode at [facility] assessment patient is not fully oriented, and cannot provide history of the events of today when asked multiple times. Additional history limited as the patient is tearful and not fully oriented. I spoke to the patient's sister Lewis Chiang, phone #[phone] by phone, who reports the patient has been missing from home for 8 days. Reports when the patient is medically cleared they can come get the patient. Patient reportedly initially without medications at the [facility] PMH: Seizures, schizophrenia. General Initial [...] Prov: 09/13/22 DC: 09/14/22 1500 entry level correction DIVALPROEX (GINA CALLES) 1,000 MG PO DAILY DIVALPROEX DR (GINA CALLES) 1,000 MG PO DAILY #60 TABS Prov: 09/13/22 DC: 09/14/22 1459 entry level correction Reported Medications DIVALPROEX ER (DEPAKOTE ER) [...] - 8.0 pH UNITS) 6.5 Ur Specific [place] (1.001 - 1.035 SG) 1.013 Urine Protein [...] refill, drowsy, admitted, ultimately discharged back to nursing home] -My EKG interpretation: I directly visualized and [...] )( Accepted Date 09/17/22 at 1114 RPT #:[id number] END OF [id number] 00:19:00 [facility] ([facility]) EMERGENCY PROVIDER REPORT REPORT#:[id number] REPORT STATUS: Signed DATE:09/17/22 TIME: 0019 PATIENT: BHUMIKA JONES UNIT #: [id number] ROOM/BED: AGE: 47 SEX: F PCP PHYS: No Primary or Family Physician SERVICE AUTHOR: Asim Jack MD * ALL edits or amendments must be made on the electronic/computer document * HPI-General Illness General Initial Greet Date/Time 09/16/222254 Presentation Chief Complaint Anxiety, Not feeling well Free Text HPI Notes Free Text HPI Notes Patient brought in by EMS from local women nursing home after increasing anxiety and concern for possible seizure activity. She was recently admitted here at [facility] and worked up for possible seizures. [...] Prov: 09/13/22 DC: 09/14/22 1500 entry level correction DIVALPROEX (GINA CALLES) 1,000 MG PO DAILY DIVALPROEX (GINA CALLES) 1,000 MG PO DAILY #60 TABS Prov: 09/13/22 DC: 09/14/22 1459 entry level correction Reported Medications DIVALPROEX ER (DEPAKOTE ER) [...] Text MDM Notes Patient presents from local nursing home with concern for possible seizure activity. [...] for discharge. Patient urged to follow-up with [facility] in the next 2 to 3 days Re-Evaluation/Progress #1 Time of Re-Eval 0136 Re-Eval Status Unchanged ED Course Medication(s) Ordered Medication(s) Ordered: Central Nervous System Agents Sig/Ksenia Start time Last Medication Dose Route Stop Time Status Admin Midazolam HCl 1 MG X1ED STA 03/26 2305 DC 09/16 IV 09/16 2305 2345 Patient [...] 67 09/17 001 Resp 16 09/18 15 All vital signs available at the time of this entry have been reviewed. Clinical Impression Clinical Impression Primary Impression: Anxiety Secondary Impressions: History of seizures, Homeless Disposition Decision Discharge )( Discharged to Home Yes )( Time 7 Discharge/Care Plan Counseled Regarding Diagnosis, Lab results, Imaging studies, Need for follow-up, When to return to ED Patient Instructions ED Anxiety Reaction, ED Seizure, Recurrent (Adult) Additional Instructions Please follow-up with [facility], [facility], and neurology. Return if any confusion, headache, stiff neck, fever, vomiting, or any other new concerns. Please take all your medications as instructed Referrals Provider Group: [facility] Follow-Up: 2-3 Days Provider Referral: Nelia Parker MD Follow-Up: 2-3 Days Address: [address] [place] [address] [address] [place] [address] Resource Referral: Savita O[facility] Follow-Up: 2-3 Days Address: [address] [place] [address] [place] [address] at 0140 RPT #:[id number] END OF [id number] 12:06:00 [facility] ([facility]) Electroencephalogram-EEG REPORT#:[id number] REPORT STATUS: Signed DATE:09/15/22 TIME: 1206 PATIENT: BHUMIKA JONES UNIT #: [id number] ROOM/BED: B250-W : 74 AGE: 47 SEX: [...] or electrographic seizures recorded. at 1209 RPT #:[id number] END OF [id number] 12:00:00 [facility] ([facility] Hospitalist Discharge Summary REPORT#:[id number] REPORT STATUS: Signed DATE:09/15/22 TIME: 1200 PATIENT: BHUMIKA JONES UNIT #: [id number] ROOM/BED: 250-W : 74 AGE: 47 SEX: [...] evaluated for possible seizure episode. She is Liberian-speaking patient only in auto garage mechanic was used. Patient denies to have any seizure episodes at home she just ran out of her medications and came to the hospital. Patient otherwise remains hemodynamically stable. However she is too drowsy to be discharged safely back home. I discussed the case with the patient. She wants her medications to be refilled and that she wants to go back to her nursing home. I discussed with her about potential seizure episodes in the future use of medications compliance with the medications and further prescriptions. She states that she would management to the nursing home. I have requested case management to [...] initial diagnosis and related differentials with the patient/personal care worker including RN. All concerns and questions are answered to the best of my abilities based on the available data.I have initiated the plan of care based on preliminary diagnosis, requested appopriate consultations with labs/imagings. Patient/personal care worker verbalizes understanding of the plan [...] timeframe: In 1-2 weeks at 1202 RPT #:[id number] END OF [id number] 16:56:00 [facility] Neurology Consultation Note REPORT#:[id number] REPORT STATUS: Signed DATE:09/14/22 TIME: 1655 PATIENT: BHUMIKA JONES UNIT #: [id number] ROOM/BED: [facility]-W : 74 AGE: 47 SEX: F ATTEND: [...] evaluated for possible seizure episode. She is Liberian-speaking patient only in auto garage mechanic was used. Patient denies to have any [...] Temp 97.9 09/14 1534 Pulse 69 09/14 153 Resp 16 09/14 [...] (SODIUM CHLORIDE 0.9% 1000 ML) 1,000 ML .[id number] IV Trazodone HCl (DESYREL) 50 MG BEDTIME PRN PRN PO Sodium Chloride (SODIUM CHLORIDE 0.9% 1000 ML) 1,000 ML .[id number] IV Carbamazepine (TEGretol) 400 MG BID PO Divalproex Sodium (DEPAKOTE DR) 1,000 MG BID PO (DC) Acetaminophen (TYLENOL) 650 MG Q6H PRN PRN PO Ondansetron HCl (ZOFRAN) 4 MG Q4H PRN PRN IV Ceftriaxone Sodium (ROCEPHIN) 1 GM Q24H IV (CAN) Lactated Ringer's (LACTATED RINGERS) 1,000 ML .[id number] IV Ceftriaxone Sodium (ROCEPHIN) 1 GM X1ED [...] - 8.0 pH UNITS) 6.0 Ur Specific [place] (1.001 - 1.035 SG) 1.032 Urine Protein [...] will be deferred to primary team. at 1702 RPT #:[id number] END OF [id number] 14:55:00 [facility] ([facility]) Hospitalist History Physical REPORT#:[id number] REPORT STATUS: Signed DATE:09/14/22 TIME: 1454 PATIENT: BHUMIKA JONES UNIT #: [id number] ROOM/BED: [facility]-W : 74 AGE: 47 SEX: F ATTEND: [...] evaluated for possible seizure episode. She is Liberian-speaking patient only in auto garage mechanic was used. Patient denies to have any [...] (0.88 - 1.13 INR Unit) 0.95 PTT (Tehama) (24 - 37.7 SECONDS) 34.6 Toxicology Valproic [...] - 8.0 pH UNITS) 6.0 Ur Specific [place] (1.001 - 1.035 SG) 1.032 Urine Protein [...] evaluated for possible seizure episode. She is Liberian-speaking patient only in auto garage mechanic was used. Patient denies to have any [...] initial diagnosis and related differentials with the patient/personal care worker including RN. All concerns and questions are answered to the best of my abilities based on the available data.I have initiated the plan of care based on preliminary diagnosis, requested appopriate consultations with labs/imagings. Patient/personal care worker verbalizes understanding of the plan of care. 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 Asim Jack Ginger 09/14/22 0537: Re-Evaluation MDM Free Text [facility] Notes Additional Text I saw and examined the patient with abdomen agree with his assessment and plan. This is the patient's second visit here at [facility] in the past 24 hours. She [...] agree with the plan of care. at 7772 at 0585 RPT #:[id number] END OF [id number] 20:34:00 [facility] ([facility]) EMERGENCY PROVIDER REPORT REPORT#:[id number] REPORT STATUS: Signed DATE:09/13/22 TIME: 2033 PATIENT: BHUMIKA JONES UNIT #: [id number] [facility]GE[facility] 47 SEX: F PCP PHYS: No [...] 3 MG PO DAILY at 1707 RPT #:[id number] END OF [id number] 09:58:00 [facility]ENC[facility] PROVIDER REPORT REPORT#:[id number] REPORT STATUS: Signed DATE:09/13/22 TIME: 09 PATIENT: BHUMIKA JONES UNIT #: [id number]

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
[2024-10-22 12:14] VITALS: BP 132/81; TEMP 98; O2SAT 100
== END 2024-10-22 12:10 | disposition home or self-care (01) ==
LOC: ER 11:13
DX: K64.9 Unspecified hemorrhoids (principal)
CPT/HCPCS: 99283

== ENCOUNTER 2025-01-29 10:03 | Emergency (ER) | payer SELFPAY ==
--- OUTSIDE RECORDS SUMMARY | 2025-01-29 10:05 | XMS REPORT | Clinical Summary ---
Author Name Unknown Organization [facility] Address [address] [place] [address] Care Team Providers Care Hydrogenation Operator Name Role Phone Unavailable Primary Care Provider Unavailabl e Encounters Date Type Department Care Team Description 01/26/2025 10:05 AM CDT Ancillary Procedure Mobile Mammography [address] [place] [address] Jake Raymond MD Screening mammography after 01/30/2024 Family History Medical History Relation Name Comments Breast cancer Sister Relation Name Status Comments Sister Social History Tobacco Use Types Packs/Day Years Used Date Smoking Tobacco: Never Assessed Comments No Sex and Gender Information Value Date Recorded Sex Assigned at Not on file Legal Sex Female 2:18 PM CDT Gender Identity Not on file Sexual Orientation Not on file Obstetrics History Plan of Treatment Health Maintenance Due Date Last Done Comments Pneumococcal Vaccine: 50+ Ye ars (1 of - PCV) 01/25/2024 COVID-19 Vaccine ( season) 2024 01/08/2022, 09/27/2020, 08/26/2020 Influenza Vaccine (#1) 2025 Procedures Procedure Name Priority Date/Time Associated Diagnosis Comments MOBILE MAMMO DIGITAL SCREENING BILATERAL W REESE Routine 01/26/2025 10:54 AM CDT Screening mammography after 01/30/2024 Results * (ABNORMAL) Mobile Mammography Screening Bilateral with Reese (01/26/2025 10:54 AM CDT) Anatomical Region Laterality Modality Breast Bilateral Mammography Impressions 01/26/2025 1:31 PM CDT 1) Mass: There is a 0.6 cm mass seen in the central region of the right breast, 7 cm from the nipple. Additional Imaging: Diagnostic Mammogram and Possible Breast Ultrasound is recommended for the right breast. Overall BI-RADS Category: 0 - Incomplete: Needs Additional Imaging Evaluation Additional Imaging: Diagnostic Mammogram and Possible Breast Ultrasound is recommended for the right breast. I personally reviewed these image(s) along with the resident's/fellow's interpretations, certify that if a procedure was performed I was physically present, and agree with the final report. Narrative 01/26/2025 1:31 PM CDT CLINICAL INDICATION: Patient is a 50 y.o. female and is seen for screening. Mobile Mammography Screening Bilateral with Reese Computer-aided detection was utilized by the radiologist in the interpretation of this examination. Tomosynthesis was performed in CC and MLO projections. COMPARISON: There is no prior study available for comparison. Per history provided, this is the patient's baseline exam. FINDINGS: The breasts are heterogeneously dense, which may obscure small masses. Right 1) Mass: There is a 0.6 cm mass seen in the central region of the right breast, 7 cm from the nipple. Left Note, motion artifact is noted in the lateral aspect of the left breast on the CC view. Per technologist note, the patient has baseline tremors and these are the best images possible. Within this limitation, there is no evidence of suspicious masses, calcifications, or other abnormal findings in the left breast. us Radha Montgomery [facility] ORDERABLES Final Result after 01/30/2024 Advance Directives * Full Code (Latest Code Status on File) Date Activated Date Inactivated Comments 01/26/2025 10:41 AM Update based o n Advanced Directive Documentation
--- NOTE | 2025-01-29 10:08 | EDPHYS ---
Physician Documentation [facility] Name: Davida Hodges Age: 50 yrs Sex: Female : 1975 Arrival Date: 01/29/2025 Time: 10:00 Bed 19 Private MD: ED Physician Puneet Glover HPI: 01/29 10:07 This 50 yrs old Female presents to ER via Unassigned with complaints of dr5 Hemorrhoids. 10:09 Patient is a 50-year-old female coming in with external hemorrhoids with mild amount of dr5 blood that occurred this morning. Patient reports she has a history of hemorrhoids that bleed. Patient reports that she ran out of her medication. Patient denies abdominal pain, nausea, vomiting, diarrhea.. 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 - Infectious Disease History:: Denies. - Social history:: Smoking status: Patient denies any tobacco usage or history of. ROS: 10:09 Constitutional: as per hpi dr5 Exam: 10:09 Constitutional: This is a well developed, well nourished patient who is awake, alert, dr5 and in no acute distress. Head/Face: Normocephalic, atraumatic. Eyes: Pupils equal round and reactive to light, extra-ocular motions intact. Lids and lashes normal. Conjunctiva and sclera are non-icteric and not injected. Cornea within normal limits. Periorbital areas with no swelling, redness, or edema. ENT: Nares patent. No nasal discharge, no septal abnormalities noted. Tympanic membranes are normal and external auditory canals are clear. Oropharynx with no redness, swelling, or masses, exudates, or evidence of obstruction, uvula midline. Mucous membranes moist. Chest/axilla: Normal chest wall appearance and motion. Nontender with no deformity. No lesions are appreciated. Cardiovascular: Regular rate and rhythm with a normal S1 and S2. Normal PMI, no JVD. No pulse deficits. Respiratory: Lungs have equal breath sounds bilaterally, clear to auscultation. No rales, rhonchi or wheezes noted. No increased work of breathing, no retractions or nasal flaring. Abdomen/GI: Soft, non-tender, non-distended Back: No spinal tenderness. No costovertebral tenderness. Full range of motion. Skin: Warm, dry with normal turgor. Normal color with no rashes, no lesions, and no evidence of cellulitis. MS/ Extremity: Pulses equal, no cyanosis. Neurovascular intact. Full, normal range of motion. Neuro: Awake and alert, GCS 15, oriented to person, place, time, and situation. Cranial nerves II-XII grossly intact. Motor strength 5/5 in all extremities. Sensory grossly intact. Cerebellar exam normal. Normal gait. 10:09 : Rectal exam: Rectal tone: normal, Perineal sensation Normal hemorrhoid(s), external, Not thrombosed and not bleeding, GERONIMO Davila present during examination, Vital Signs: 10:11 BP 130 / 68; Pulse 74; Resp 16; Temp 98.7; Pulse Ox 100% ; me1 10:20 BP 127 / 75; Pulse 72; Resp 16; Pulse Ox 100% ; me1 MDM: 10:01 Medical Screening Exam initiated dr5 10:09 Differential diagnosis: viral Infection, External hemorrhoid, thrombosed hemorrhoid. dr5 Data reviewed: vital signs, nurses notes. I considered the following discharge prescriptions or medication management in the emergency department Medications were administered in the Emergency Department. See MAR. Care significantly affected by the following Social Determinants of Health: Poor access to healthcare and/or lack of insurance, Poor access to transportation, Inadequate housing, Unemployment, Problems related to employment. 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 Special discussion: I discussed with the patient/guardian in detail that at this point there is no indication for admission to the hospital. It is understood, however, that if the symptoms persist or worsen the patient needs to return immediately for re-evaluation. Based on the history and exam findings, there is no indication for further emergent testing or inpatient evaluation. I discussed with the patient/guardian the need to see the assistant tennis professional for further evaluation of the symptoms. ED course: Will refill patient's medications for hemorrhoids. No thrombosis or bleeding noted on exam. All questions answered. Strict ER precautions given. Administered Medications: No medications were administered Disposition: 11:30 Co-signature as Attending Physician, Puneet Glover MD I agree with the assessment and jr11 plan of care. Disposition Summary: 01/29/25 10:08 Discharge Ordered Notes: Location: Home dr5 Condition: Stable dr5 Diagnosis - Unspecified hemorrhoids dr5 Followup: dr5 - With: Emergency Department - When: As needed - Reason: Worsening of condition Followup: dr5 - With: Private Physician - When: 1 - 2 days - Reason: Recheck today's complaints, Continuance of care, Re-evaluation by your physician Discharge Instructions: - Discharge Summary Sheet dr5 - Hemorrhoids dr5 Forms: - Medication Reconciliation Form dr5 - Patient Portal Instructions dr5 - Leadership Thank You Letter dr5 Prescriptions: - Anusol-HC 2.5 % Topical cream with perineal applicator - apply 1 application RECTAL route 1 to 2 times per day As needed as needed for dr5 hemorrhoids; 20 application; Refills: 0, Product Selection Permitted Signatures: Puneet Glover MD MD jr11 Lola Davies, GERONIMO RN me1 Niels York, CHLORINATOR-C CHLORINATOR-Cdr5
--- NOTE | 2025-01-29 10:08 | ER ---
Nurse's Notes [facility] Name: Davida Hodges Age: 50 yrs Sex: Female : 1975 Arrival Date: 01/29/2025 Time: 10:00 Bed 19 Private MD: Diagnosis: Unspecified hemorrhoids Presentation: 01/29 10:03 Chief complaint: EMS states: toned out for hemorrhoids. Small amount of blood shown to pa1 EMS on toilet paper. 10:11 Coronavirus screen: At this time, the client does not indicate any symptoms associated [facility] with coronavirus-19. Ebola Screen: No symptoms or risks identified at this time. Initial Sepsis Screen: Does the patient meet any 2 criteria? No. Patient's initial sepsis screen is negative. Does the patient have a suspected source of infection? No. Patient's initial sepsis screen is negative. Risk Assessment: Do you want to hurt yourself or someone else? Patient reports no desire to harm self or others. Onset of symptoms is unknown. 10:11 Method Of Arrival: Ambulatory [facility] 10:11 Acuity: CARMITA 3 [facility] Triage Assessment: 10:12 General: Appears in no apparent distress. Behavior is calm, cooperative, appropriate [facility] for age. Pain: Denies pain. EENT: No signs and/or symptoms were reported regarding the EENT system. Neuro: Level of Consciousness is awake, alert, obeys commands, Oriented to person, place, time, situation, Appropriate for age. Cardiovascular: Patient's skin is warm and dry. Respiratory: Airway is patent Respiratory effort is even, unlabored, Respiratory pattern is regular, symmetrical. GI: Reports hemorrhoids. : No signs and/or symptoms were reported regarding the genitourinary system. Derm: Skin is intact, is healthy with good turgor, Skin is pink, warm \T\ dry. Musculoskeletal: No signs and/or symptoms reported regarding the musculoskeletal system. Circulation, motion, and sensation intact. Range of motion: intact in all extremities. 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 - Infectious Disease History:: Denies. - Social history:: Smoking status: Patient denies any tobacco usage or history of. Screenin:13 [facility] ED Fall Risk Assessment (Adult) History of falling in the last 3 months, me1 including since admission No falls in past 3 months (0 pts) Confusion or Disorientation No (0 pts) Intoxicated or Sedated No (0 pts) Impaired Gait No (0 pts) Mobility Assist Device Used No (0 pt) Altered Elimination No (0 pt) Score/Fall Risk Level 0 - 2 = Low Risk Maintained a safe environment, Provided non-skid footwear, Hourly rounding (assess needs \T\ fall precautionary measures) done. Abuse screen: Denies threats or abuse. Nutritional screening: No deficits noted. Tuberculosis screening: No symptoms or risk factors identified. Assessment: 10:13 General: See triage assessment. me1 Vital Signs: 10:11 BP 130 / 68; Pulse 74; Resp 16; Temp 98.7; Pulse Ox 100% ; me1 10:20 BP 127 / 75; Pulse 72; Resp 16; Pulse Ox 100% ; me1 ED Course: 10:00 Patient arrived in ED. em1 10:00 Niels York FNP-C [facility]. dr5 10:00 Puneet Glover MD is Attending Physician. dr5 10:03 Lola Davies, GERONIMO is Primary Nurse. me1 10:08 Puneet Glover MD is Referral Physician. dr5 10:12 Triage completed. me1 10:12 Arm band placed on Patient placed in an exam room. me1 10:13 Patient has correct armband on for positive identification. Bed in low position. Call me1 light in reach. Side rails up X2. Provided Education on: POC. Verbalized understanding.. Client placed on continuous cardiac and pulse oximetry monitoring. NIBP monitoring applied. Pulse ox on. NIBP on. 10:13 No provider procedures requiring assistance completed. me1 10:22 Patient did not have IV access during this emergency room visit. me1 Administered Medications: No medications were administered Medication: 10:13 VIS not applicable for this client. me1 Outcome: 10:08 Discharge ordered by . dr5 10:22 Discharged to home ambulatory, me1 10:22 Condition: stable 10:22 Discharge instructions given to patient, Instructed on discharge instructions, follow up and referral plans. medication usage, Demonstrated understanding of instructions, follow-up care, medications, Prescriptions given X 1, 10:22 Patient left the ED. me1 Signatures: Juvenal Perez em1 Lola Davies, GERONIMO RN me1 Niels York, TRANSACTION PROCESSOR-C TRANSACTION PROCESSOR-Cdr5 Corrections: (The following items were deleted from the chart) 10:12 10:03 Chief complaint: EMS states: toned out for hemorrhoids. Small amount of blood me1 shown to EMS on toilet paper. me1
[2025-01-29 10:33] VITALS: TEMP 98.7; O2SAT 100
[2025-01-29 10:37] VITALS: BP 127/75
== END 2025-01-29 10:22 | disposition home or self-care (01) ==
LOC: ER 10:03
DX: K64.9 Unspecified hemorrhoids (principal)
CPT/HCPCS: 99283

== ENCOUNTER 2025-02-01 08:31 | Emergency (ER) | payer SELFPAY ==
--- OUTSIDE RECORDS SUMMARY | 2025-02-01 08:33 | XMS REPORT | Clinical Summary ---
Author Name Unknown Organization [facility] Address [address] [place] [address] Care Team Providers Care Manager Embalmer Funeral Director Name Role Phone Unavailable Primary Care Provider Unavailabl e Encounters Date Type Department Care Team Description 01/26/2025 10:05 AM CDT Ancillary Procedure Mobile Mammography [address] [place] [address] Jake Raymond MD Screening mammography after 02/02/2024 Family History Medical History Relation Name Comments [...] 01/26/2025 10:54 AM CDT Screening mammography after 02/02/2024 Results * (ABNORMAL) Mobile Mammography Screening Bilateral [...] in the left breast. [place] Radha [facility] [place] [place] Final Result after 02/02/2024 Advance Directives * Full Code (Latest Code Status on File) Date Activated Date Inactivated Comments 01/26/2025 10:41 AM Update based o n Advanced Directive Documentation
--- NOTE | 2025-02-01 08:44 | EDPHYS ---
Physician Documentation [facility] Name: Davida Hodges Age: 50 yrs Sex: Female : 1975 Arrival Date: 02/01/2025 Time: 08:31 Bed IW1 Private MD: ED Physician Pascual Lundy HPI: 02/01 08:49 This 50 yrs old Female presents to ER via Ambulatory with complaints of sb4 Constipation. 08:49 Patient reports constipation and bleeding hemorrhoids. Was seen here 3 days ago for sb4 similar symptoms, has not filled her prescription. States that she has had an issue with her hemorrhoids since she was a child, has never followed up with GI. 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 - Infectious Disease History:: Denies. - Social history:: Smoking status: Patient denies any tobacco usage or history of. ROS: 08:49 Constitutional: Negative for fever, chills, and weight loss, sb4 08:49 Abdomen/GI: Positive for Per HPI, 08:49 All other systems are negative, Exam: 08:49 Constitutional: This is a well developed, well nourished patient who is awake, alert, sb4 and in no acute distress. Head/Face: Normocephalic, atraumatic. Eyes: Extra-ocular motions intact. Periorbital areas with no swelling, redness, or edema. ENT: Mucous membranes moist. Respiratory: No increased work of breathing, no retractions or nasal flaring. Skin: Warm, dry with normal turgor. Normal color with no rashes, no lesions, and no evidence of cellulitis. 08:49 Special observations: complaints out of proportion to exam, no evidence of discomfort, Vital Signs: 08:35 BP 106 / 91; Pulse 64; Resp 16; Temp 97; Pulse Ox 97% ; ll1 MDM: 08:33 Medical Screening Exam initiated sb4 08:49 Data reviewed: vital signs, nurses notes, EMS record, and as a result, I will discharge sb4 patient. Test considered but Not performed: CT: Not indicated, would not change my management. Counseling: I had a detailed discussion with the patient and/or guardian regarding the historical points, exam findings, and any diagnostic results supporting the discharge/admit diagnosis, the need for outpatient follow up, a terminal clerk, to return to the emergency department if symptoms worsen or persist or if there are any questions or concerns that arise at home. Special discussion: I discussed with the patient/guardian in detail that at this point there is no indication for admission to the hospital. It is understood, however, that if the symptoms persist or worsen the patient needs to return immediately for re-evaluation. Based on the history and exam findings, there is no indication for further emergent testing or inpatient evaluation. GI. ED course: This is a chronic issue, patient is in no acute distress, will provide laxative in the ED and stool softener on outpatient. Was prescribed Anusol 3 days ago, instructed to use this for her symptomatic hemorrhoids as needed and to follow-up with GI for further treatment. 15:55 Differential diagnosis: malingering disorder, hemorrhoids, constipation. Care sb4 significantly affected by the following Social Determinants of Health: Problems related to primary support group. Administered Medications: 08:55 Drug: Bisacodyl PO 5 mg PO once Route: PO; ll1 08:55 Follow up: Response: No adverse reaction ll1 Disposition Summary: 02/01/25 08:44 Discharge Ordered Notes: Location: Home sb4 Problem: an ongoing problem sb4 Symptoms: are unchanged sb4 Condition: Stable sb4 Diagnosis - Constipation, hemorrhoids sb4 Followup: sb4 - With: Darrian Saavedra MD - When: 1 week - Reason: Recheck today's complaints, Re-evaluation by your physician Discharge Instructions: - Discharge Summary Sheet sb4 - Constipation, Adult, [id number] sb4 - Hemorrhoids, [id number] sb4 Forms: - Patient Portal Instructions sb4 - Leadership Thank You Letter sb4 Prescriptions: - Colace 100 mg Oral Tablet - take 1 tablet ORAL route every 12 hours; 14 tablet; Refills: 0, Product sb4 Selection Permitted Addendum: 02/04/2025 14:31 Co-signature as Attending Physician, Pascual Lundy MD I agree with the assessment and c lee plan of care. Signatures: Pascual Lundy MD MD cha Lewis, Lynsay, RN RN ll1 Mignon Bal, DAVID-Ellis PA-C sb4
--- NOTE | 2025-02-01 08:44 | ER ---
Nurse's Notes [facility] Name: Davida Hodges Age: 50 yrs Sex: Female : 1975 Arrival Date: 02/01/2025 Time: 08:31 Bed IW1 Private MD: Diagnosis: Constipation, hemorrhoids Presentation: 02/01 08:35 Chief complaint: Patient states: Abdominal pain with constipation for 1 day. ll1 Coronavirus screen: Client denies travel out of the [place] in the last 14 days. At this time, the client does not indicate any symptoms associated with coronavirus-19. Ebola Screen: Patient denies travel to an Ebola-affected area in the 21 days before illness onset. Initial Sepsis Screen: Does the patient meet any 2 criteria? No. Patient's initial sepsis screen is negative. Does the patient have a suspected source of infection? No. Patient's initial sepsis screen is negative. Risk Assessment: Do you want to hurt yourself or someone else? Patient reports no desire to harm self or others. Onset of symptoms was January 31, 2025. 08:35 Method Of Arrival: Ambulatory 1 08:35 Acuity: CARMITA 3 ll1 Triage Assessment: 08:35 General: Appears distressed, Behavior is calm, cooperative, appropriate for age. Pain: ll1 Complains of pain in abdomen. Neuro: No deficits noted. GI: Reports lower abdominal pain, upper abdominal pain, constipation. 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 - Infectious Disease History:: Denies. - Social history:: Smoking status: Patient denies any tobacco usage or history of. Screenin:55 [facility] ED Fall Risk Assessment (Adult) History of falling in the last 3 months, ll1 including since admission No falls in past 3 months (0 pts) Confusion or Disorientation No (0 pts) Intoxicated or Sedated No (0 pts) Impaired Gait No (0 pts) Mobility Assist Device Used No (0 pt) Altered Elimination No (0 pt) Score/Fall Risk Level 0 - 2 = Low Risk Maintained a safe environment, Hourly rounding (assess needs \T\ fall precautionary measures) done. Abuse screen: Denies threats or abuse. Nutritional screening: No deficits noted. Tuberculosis screening: No symptoms or risk factors identified. Assessment: 08:55 Reassessment: No changes from previously documented assessment. Patient and/or family ll1 updated on plan of care and expected duration. Pain level reassessed. Patient is alert, oriented x 3, equal unlabored respirations, skin warm/dry/pink. 08:55 GI: Bowel sounds present X 4 quads. Abd is soft and non tender X 4 quads. ll1 Vital Signs: 08:35 BP 106 / 91; Pulse 64; Resp 16; Temp 97; Pulse Ox 97% ; ll1 ED Course: 08:32 Patient arrived in ED. im 08:32 Mignon Bal PA-C is PHCP. sb4 08:32 Pascual Lundy MD is Attending Physician. sb4 08:35 Patient has correct armband on for positive identification. Bed in low position. ll1 Provided Education on: ER procedures and process. 08:36 Triage completed. ll1 08:40 Arm band placed on. ll1 08:43 Darrian Saavedra MD is Referral Physician. sb4 08:55 No provider procedures requiring assistance completed. Patient did not have IV access ll1 during this emergency room visit. Administered Medications: 08:55 Drug: Bisacodyl PO 5 mg PO once Route: PO; ll1 08:55 Follow up: Response: No adverse reaction ll1 Medication: 08:55 VIS not applicable for this client. ll1 Outcome: 08:44 Discharge ordered by . sb4 08:55 Patient left the ED. ll1 08:55 Discharged to home ambulatory, ll1 08:55 Condition: stable 08:55 Discharge instructions given to patient, Instructed on discharge instructions, follow up and referral plans. medication usage, Demonstrated understanding of instructions, follow-up care, medications, Prescriptions given X 1, Signatures: Juan Bach RN RN ll1 Mignon Bal PA-C PA-C sb4 Shonna Phillip im Corrections: (The following items were deleted from the chart) 08:40 08:35 Pulse 64bpm; Resp 16bpm; Pulse Ox 97%; Temp 97F; ll1 ll1
[2025-02-01] MEDS ORDERED: BISACODYL E.C. 5 MG TAB PO ONE (08:51)
[2025-02-01 08:59] VITALS: BP 106/91; TEMP 97; O2SAT 97
== END 2025-02-01 08:55 | disposition home or self-care (01) ==
LOC: ER 08:31
DX: K59.00 Constipation, unspecified (principal); K64.9 Unspecified hemorrhoids
CPT/HCPCS: 99283

== ENCOUNTER 2025-02-03 17:36 | Emergency (ER) | payer SELFPAY ==
--- OUTSIDE RECORDS SUMMARY | 2025-02-03 17:40 | XMS REPORT | Clinical Summary ---
Author Name Unknown Organization [facility] Address [address] [place] [address] Care Team Providers Care Principal Engineer Name Role Phone Unavailable Primary Care Provider Unavailabl e Encounters Date Type Department Care Team Description 01/26/2025 10:05 AM CDT Ancillary Procedure Mobile Mamm[facility] [address] [place] [address] Jake Raymond MD Screening mammography after 02/04/2024 Family History Medical History Relation Name Comments [...] 01/26/2025 10:54 AM CDT Screening mammography after 02/04/2024 Results * (ABNORMAL) Mobile Mammography Screening Bilateral [...] in the left breast. us Radha Montgomery [facility] MAMMOGRAPHY ORDERABLES Final Result after 02/04/2024 Advance Directives * Full Code (Latest Code Status on File) Date Activated Date Inactivated Comments 01/26/2025 10:41 AM Update based o n Advanced Directive Documentation
[2025-02-03] MEDS ORDERED: ACETAMINOPHEN 500 MG TAB ONE (19:44)
--- NOTE | 2025-02-03 19:55 | EDPHYS ---
Physician Documentation [facility] Name: Davida Hodges Age: 50 yrs Sex: Female : 1975 Arrival Date: 02/03/2025 Time: 17:36 Bed 17 Private MD: ED Physician Ramiro Piña HPI: 02/03 19:29 This 50 yrs old Female presents to ER via EMS with complaints of Chest Pain. kb 19:29 Pt is a 50 year old female who presents for chest pain that has been ongoing for a long kb time. Called 911 today because the people that she lives with were causing her a lot of stress. Also complaining about not having documentation for immigration. . 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 - Infectious Disease History:: Denies. - Social history:: Smoking status: Patient reports the use of cigarette tobacco products, smokes one pack cigarettes per day. ROS: 19:27 Constitutional: As per HPI kb Exam: 19:27 Constitutional: This is a well developed, well nourished patient who is awake, alert, kb and in no acute distress. Head/Face: Normocephalic, atraumatic. ENT: Moist Mucous membranes Cardiovascular: Regular rate Respiratory: Respirations even and unlabored. No increased work of breathing. Talking in full sentences Skin: Warm, dry with normal turgor. Normal color. MS/ Extremity: Pulses equal, no cyanosis. Neurovascular intact. Full, normal range of motion. Neuro: Awake and alert, GCS 15, oriented to person, place, time, and situation. 19:53 ECG was reviewed by the Attending Physician. kb Vital Signs: 18:19 BP 104 / 64; Pulse 77; Resp 16; Temp 98.2; Pulse Ox 100% ; Pain 8/10; dd2 20:29 BP 102 / 64 LA; Pulse 76; Resp 18; Pulse Ox 100% ; kj2 18:19 Pain Scale: Adult dd2 MDM: 17:41 Medical Screening Exam initiated kb 19:30 Differential diagnosis: acute mi, arrhythmia, anxiety. Data reviewed: vital signs, kb nurses notes. Historians other than the Patient: EMS: [facility]. Counseling: I had a detailed discussion with the patient and/or guardian regarding the historical points, exam findings, and any diagnostic results supporting the discharge/admit diagnosis, the need for outpatient follow up, a family practitioner, to return to the emergency department if symptoms worsen or persist or if there are any questions or concerns that arise at home. 19:31 ED course: Pt on cell phone, no distress noted. . kb 02/03 17:41 Order name: EKG - Nurse/Tech; Complete Time: 19:54 kb EC:53 Rate is 63 beats/min. Rhythm is regular. QRS [place] is Normal. [place] interval is normal at kb 158 msec. QRS interval is normal at 90 msec. QT interval is normal at 395 msec. Administered Medications: 19:56 Drug: Acetaminophen PO 1000 mg PO once Route: PO; kj2 20:24 Follow up: Response: No adverse reaction kj2 Disposition: 19:43 I was immediately available on-site in the Emergency Department for consultation in the ms3 care of the patient. Disposition Summary: 02/03/25 19:54 Discharge Ordered Notes: Location: Home kb Condition: Stable kb Diagnosis - Chest pain, unspecified kb Followup: kb - With: Emergency Department - When: As needed - Reason: Worsening of condition Followup: kb - With: Private Physician - When: 2 - 3 days - Reason: Recheck today's complaints, Continuance of care, Re-evaluation by your physician Discharge Instructions: - Discharge Summary Sheet kb - Nonspecific Chest Pain, Adult, [id number] kb Forms: - Medication Reconciliation Form kb - Antibiotic Education kb - Prescription Opioid Use kb - Patient Portal Instructions kb - Leadership Thank You Letter kb Signatures: Cristina Sewell FNP-C FNP-Ramiro Stiles DO DO ms3 Kassandra Mckeon, RN RN kj2 JONI FERNANDEZ RN RN dd2
--- NOTE | 2025-02-03 19:55 | ER ---
Nurse's Notes [facility] Name: Davida Hodges Age: 50 yrs Sex: Female : 1975 Arrival Date: 02/03/2025 Time: 17:36 Bed 17 Private MD: Diagnosis: Chest pain, unspecified Presentation: 02/03 18:19 Chief complaint: Patient states: CHEST PAIN FOR A LONGTIME. Coronavirus screen: At this dd2 time, the client does not indicate any symptoms associated with coronavirus-19. Ebola Screen: No symptoms or risks identified at this time. Initial Sepsis Screen: Does the patient meet any 2 criteria? No. Patient's initial sepsis screen is negative. Does the patient have a suspected source of infection? No. Patient's initial sepsis screen is negative. Risk Assessment: Do you want to hurt yourself or someone else? Patient reports no desire to harm self or others. Onset of symptoms is unknown. 18:19 Method Of Arrival: EMS: [facility] dd2 18:19 Acuity: CARMITA 3 dd2 Triage Assessment: 18:20 General: Appears in no apparent distress. comfortable, Behavior is calm, cooperative, dd2 appropriate for age. Pain: Complains of pain in chest. Cardiovascular: Reports chest pain, Patient's skin is warm and dry. 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 - Infectious Disease History:: Denies. - Social history:: Smoking status: Patient reports the use of cigarette tobacco products, smokes one pack cigarettes per day. Screenin:45 [facility] ED Fall Risk Assessment (Adult) History of falling in the last 3 months, kj2 including since admission No falls in past 3 months (0 pts) Confusion or Disorientation No (0 pts) Intoxicated or Sedated No (0 pts) Impaired Gait No (0 pts) Mobility Assist Device Used No (0 pt) Altered Elimination No (0 pt) Score/Fall Risk Level 0 - 2 = Low Risk Maintained a safe environment, Hourly rounding (assess needs \T\ fall precautionary measures) done. Abuse screen: Denies threats or abuse. Denies injuries from another. Nutritional screening: No deficits noted. Tuberculosis screening: No symptoms or risk factors identified. Assessment: 19:45 General: Appears in no apparent distress. Behavior is cooperative. Pain: Complains of kj2 pain in chest Pain does not radiate. Pain began suddenly. Pain: Pain began gradually. Neuro: Level of Consciousness is awake, alert, obeys commands, Oriented to person, place, time, situation. Cardiovascular: Patient's skin is warm and dry. Respiratory: Airway is patent Respiratory effort is unlabored. GI: No signs and/or symptoms were reported involving the gastrointestinal system. : No signs and/or symptoms were reported regarding the genitourinary system. 20:26 Reassessment: Patient appears in no apparent distress at this time. Patient and/or kj2 family updated on plan of care and expected duration. Pain level reassessed. Patient is alert, oriented x 3, equal unlabored respirations, skin warm/dry/pink. Vital Signs: 18:19 BP 104 / 64; Pulse 77; Resp 16; Temp 98.2; Pulse Ox 100% ; Pain 8/10; dd2 20:29 BP 102 / 64 LA; Pulse 76; Resp 18; Pulse Ox 100% ; kj2 18:19 Pain Scale: Adult dd2 ED Course: 17:39 Patient arrived in ED. im 17:41 Cristina Sewell F[facility]-C [facility]. kb 17:41 Ramiro Piña DO is Attending Physician. kb 18:20 Triage completed. dd2 18:20 Arm band placed on right wrist. dd2 19:45 Patient has correct armband on for positive identification. Bed in low position. Call kj2 light in reach. Provided Education on: call light. 19:50 Kassandra Mckeon, RN is Primary Nurse. kj2 19:54 EKG done, by echo technician. ts3 20:27 No provider procedures requiring assistance completed. Patient did not have IV access kj2 during this emergency room visit. 20:28 Client placed on continuous cardiac and pulse oximetry monitoring. NIBP monitoring kj2 applied. wrapper layer on. Pulse ox on. 20:28 Patient maintains SpO2 saturation greater than 95% on room air. kj2 Administered Medications: 19:56 Drug: Acetaminophen PO 1000 mg PO once Route: PO; kj2 20:24 Follow up: Response: No adverse reaction kj2 Medication: 20:28 VIS not applicable for this client. kj2 Outcome: 19:54 Discharge ordered by . kb 20:27 Condition: stable kj2 20:27 Discharge instructions given to patient, Instructed on discharge instructions, follow up and referral plans. Demonstrated understanding of instructions, follow-up care, 20:28 Discharged to home ambulatory, kj2 20:34 Patient left the ED. kj2 Signatures: Cristina Sewell, SPECIAL EDUCATION PARA PROFESSIONAL-C SPECIAL EDUCATION PARA PROFESSIONAL-Shonna Pulido Krystal, RN RN kj2 JONI FERNANDEZ RN RN dd2 Dorothy Bobo ts3
[2025-02-03 21:17] VITALS: TEMP 98.2; O2SAT 100
[2025-02-03 21:26] VITALS: BP 102/64
== END 2025-02-03 20:34 | disposition home or self-care (01) ==
LOC: ER 17:36
DX: R07.9 Chest pain, unspecified (principal); F17.210 Nicotine dependence, cigarettes, uncomplicated; Z88.8 Allergy status to other drugs, medicaments and biological substances
CPT/HCPCS: 93005; 99284

== ENCOUNTER 2025-02-08 12:40 | Emergency (ER) | payer SELFPAY ==
--- OUTSIDE RECORDS SUMMARY | 2025-02-08 12:43 | XMS REPORT | Clinical Summary ---
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 us Radha Montgomery [facility] MAMMOGRAPHY ORDERABLES Final Result after 02/09/2024 Advance Directives * Full Code (Latest Code Status on File) Date Activated Date Inactivated Comments 01/26/2025 10:41 AM Update based o n Advanced Directive Documentation
[2025-02-08] MEDS ORDERED: ACETAMINOPHEN 500 MG TAB ONE (13:50)
[2025-02-08] MEDS ORDERED: KETOROLAC 30 MG/ML INJ ONE (13:50)
--- NOTE | 2025-02-08 13:53 | ER ---
Nurse's Notes [facility] Name: Davida Hodges Age: 50 yrs Sex: Female : 1975 Arrival Date: 02/08/2025 Time: 12:40 Bed 9 Private MD: Diagnosis: Other hemorrhoids Presentation: 02/08 13:15 Chief complaint: Patient states: abd pain X 2 weeks , has bleeding hemorrhoids. iw Coronavirus screen: At this time, the client does not indicate any symptoms associated with coronavirus-19. Ebola Screen: No symptoms or risks identified at this time. 13:15 Method Of Arrival: Ambulatory iw 13:15 Acuity: CARMITA 3 iw 13:35 Initial Sepsis Screen: Does the patient meet any 2 criteria? No. Patient's initial kj2 sepsis screen is negative. Does the patient have a suspected source of infection? No. Patient's initial sepsis screen is negative. Risk Assessment: Do you want to hurt yourself or someone else? Patient reports no desire to harm self or others. Onset of symptoms was January 22, 2025. Triage Assessment: 13:37 GI: Reports lower abdominal pain, upper abdominal pain. 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 - Infectious Disease History:: Denies. - Social history:: Smoking status: unknown. Screenin:34 [facility] ED Fall Risk Assessment (Adult) History of falling in the last 3 months, kj2 including since admission No falls in past 3 months (0 pts) Confusion or Disorientation No (0 pts) Intoxicated or Sedated No (0 pts) Impaired Gait No (0 pts) Mobility Assist Device Used No (0 pt) Altered Elimination No (0 pt) Score/Fall Risk Level 0 - 2 = Low Risk Maintained a safe environment, Hourly rounding (assess needs \T\ fall precautionary measures) done. Abuse screen: Denies threats or abuse. Denies injuries from another. Nutritional screening: No deficits noted. Tuberculosis screening: No symptoms or risk factors identified. Assessment: 13:33 General: Appears in no apparent distress. Behavior is cooperative. Pain: Complains of kj2 pain in abdomen Pain currently is 6 out of 10 on a pain scale. Neuro: Level of Consciousness is awake, alert, obeys commands, Oriented to person, place, time, situation. Cardiovascular: Patient's skin is warm and dry. Respiratory: Airway is patent Respiratory effort is unlabored. : No signs and/or symptoms were reported regarding the genitourinary system. 13:37 GI: Bowel sounds present X 4 quads. Abd is non tender. kj2 Vital Signs: 13:18 BP 134 / 88; Pulse 74; Resp 16; Temp 98.1; Pulse Ox 100% on R/A; Weight 113.4 kg; iw Height 4 ft. 11 in. ; Pain 10/10; 13:56 BP 121 / 90; Pulse 72; Resp 18; Temp 98; Pulse Ox 100% on R/A; kj2 13:18 Body Mass Index 50.49 (113.40 kg, 149.86 cm) iw 13:18 Pain Scale: Adult iw ED Course: 12:42 Patient arrived in ED. mr 12:48 Niels York FNP-C is PHCP. dr5 12:48 Ramiro Piña DO is Attending Physician. dr5 13:16 Triage completed. iw 13:32 Kassandra Mckeon, RN is Primary Nurse. kj2 13:36 Arm band placed on Patient placed in the treatment room. kj2 13:37 Patient has correct armband on for positive identification. Bed in low position. Call kj2 light in reach. Provided Education on: call light. 13:55 No provider procedures requiring assistance completed. Patient did not have IV access kj2 during this emergency room visit. Administered Medications: 14:10 Drug: Ketorolac IM 30 mg IM once Route: IM; Site: right deltoid; kj2 14:10 Follow up: Response: Medication administered at discharge. kj2 14:10 Drug: Acetaminophen PO 1000 mg PO once Route: PO; kj2 14:10 Follow up: Response: Medication administered at discharge. kj2 Medication: 13:55 VIS not applicable for this client. kj2 Outcome: 13:52 Discharge ordered by . dr5 13:55 Discharged to home ambulatory, kj2 13:55 Condition: stable 13:55 Discharge instructions given to patient, Instructed on discharge instructions, follow up and referral plans. Demonstrated understanding of instructions, follow-up care, 14:11 Patient left the ED. kj2 Signatures: Yanira Santa, Reg Reg mr Laila Foreman RN RN iw Kassandra Mckeon RN RN kj2 Niels York, GUERDA-C AUCTIONEER TOBACCO-Cdr5
--- NOTE | 2025-02-08 13:53 | EDPHYS ---
Physician Documentation [facility] Name: Davida Hodges Age: 50 yrs Sex: Female : 1975 Arrival Date: 02/08/2025 Time: 12:40 Bed 9 Private MD: ED Physician Ramiro Piña HPI: 02/08 18:32 This 50 yrs old Female presents to ER via Ambulatory with complaints of dr5 Abdominal Pain. 18:33 Patient is a 50-year-old female with history of seizures and hemorrhoids coming in for dr5 intermittent bleeding hemorrhoids for the past 2 weeks. Patient denies lightheaded, dizziness, chest pain, abdominal pain, nausea, vomiting, diarrhea. Patient reports she is has history of hemorrhoids.. 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 - Infectious Disease History:: Denies. - Social history:: Smoking status: unknown. ROS: 18:33 Constitutional: as per hpi dr5 Exam: 18:33 Constitutional: This is a well developed, well nourished patient who is awake, alert, dr5 and in no acute distress. Head/Face: Normocephalic, atraumatic. Eyes: Pupils equal round and reactive to light, extra-ocular motions intact. Lids and lashes normal. Conjunctiva and sclera are non-icteric and not injected. Cornea within normal limits. Periorbital areas with no swelling, redness, or edema. ENT: Nares patent. No nasal discharge, no septal abnormalities noted. Tympanic membranes are normal and external auditory canals are clear. Oropharynx with no redness, swelling, or masses, exudates, or evidence of obstruction, uvula midline. Mucous membranes moist. Neck: Trachea midline, no thyromegaly or masses palpated, and no cervical lymphadenopathy. Supple, full range of motion without nuchal rigidity, or vertebral point tenderness. No Meningismus. Chest/axilla: Normal chest wall appearance and motion. Nontender with no deformity. No lesions are appreciated. Cardiovascular: Regular rate and rhythm with a normal S1 and S2. Normal PMI, no JVD. No pulse deficits. Respiratory: Lungs have equal breath sounds bilaterally, clear to auscultation. No rales, rhonchi or wheezes noted. No increased work of breathing, no retractions or nasal flaring. Back: No spinal tenderness. No costovertebral tenderness. Full range of motion. Skin: Warm, dry with normal turgor. Normal color with no rashes, no lesions, and no evidence of cellulitis. MS/ Extremity: Pulses equal, no cyanosis. Neurovascular intact. Full, normal range of motion. Neuro: Awake and alert, GCS 15, oriented to person, place, time, and situation. Cranial nerves II-XII grossly intact. Motor strength 5/5 in all extremities. Sensory grossly intact. Cerebellar exam normal. Normal gait. 18:33 : Rectal exam: Rectal tone: normal, Perineal sensation Normal hemorrhoid(s), external, no acute changes, Crystal, RN present during exam. External hemorrhoid noted without bleeding.. Vital Signs: 13:18 BP 134 / 88; Pulse 74; Resp 16; Temp 98.1; Pulse Ox 100% on R/A; Weight 113.4 kg; iw Height 4 ft. 11 in. ; Pain 10/10; 13:56 BP 121 / 90; Pulse 72; Resp 18; Temp 98; Pulse Ox 100% on R/A; kj2 13:18 Body Mass Index 50.49 (113.40 kg, 149.86 cm) iw 13:18 Pain Scale: Adult iw MDM: 12:48 Medical Screening Exam initiated dr5 18:33 Differential diagnosis: External hemorrhoid, bleeding hemorrhoid, painful hemorrhoid. dr5 Data reviewed: vital signs, nurses notes. Consideration of Admission/Observation Escalation of care including admission/observation considered. Escalation considered patient found to have bleeding hemorrhoid. I considered the following discharge prescriptions or medication management in the emergency department I discussed and recommended Over The Counter medications, Medications were administered in the Emergency Department. See MAR. Care significantly affected by the following chronic conditions: Seizure, hemorrhoids. Care significantly affected by the following Social Determinants of Health: Poor access to healthcare and/or lack of insurance, Poor access to transportation, Problems related to employment. Counseling: I had a detailed discussion with the patient and/or guardian regarding the historical points, exam findings, and any diagnostic results supporting the discharge/admit diagnosis, the presence of at least one elevated blood pressure reading (>120/80) during this emergency department visit, the need for outpatient follow up, for definitive care, a handle sewer, to return to the emergency department if symptoms worsen or persist or if there are any questions or concerns that arise at home. Medication response: Response to treatment: the patient's symptoms have markedly improved after treatment. Special discussion: I discussed with the patient/guardian in detail that at this point there is no indication for admission to the hospital. It is understood, however, that if the symptoms persist or worsen the patient needs to return immediately for re-evaluation. Based on the history and exam findings, there is no indication for further emergent testing or inpatient evaluation. I discussed with the patient/guardian the need to see the primary care provider for further evaluation of the symptoms. ED course: Patient reports pain is better and improved. Will patient follow GI doctor. No bleeding hemorrhoid noted this time. All questions were. Strict ER precautions given.. Administered Medications: 14:10 Drug: Ketorolac IM 30 mg IM once Route: IM; Site: right deltoid; kj2 14:10 Follow up: Response: Medication administered at discharge. kj2 14:10 Drug: Acetaminophen PO 1000 mg PO once Route: PO; kj2 14:10 Follow up: Response: Medication administered at discharge. kj2 Disposition: 20:03 I was immediately available on-site in the Emergency Department for consultation in the ms3 care of the patient. Disposition Summary: 02/08/25 13:52 Discharge Ordered Notes: Location: Home dr5 Condition: Stable dr5 Diagnosis - Other hemorrhoids dr5 Followup: dr5 - With: Emergency Department - When: As needed - Reason: Worsening of condition Followup: dr5 - With: Private Physician - When: 1 - 2 days - Reason: Recheck today's complaints, Continuance of care, Re-evaluation by your physician Discharge Instructions: - Discharge Summary Sheet dr5 - High-Fiber Eating Plan dr5 - Hemorrhoids dr5 Forms: - Medication Reconciliation Form dr5 - Patient Portal Instructions dr5 - Leadership Thank You Letter dr5 Signatures: Laila Foreman RN Ramiro Tyler DO DO ms3 Kassandra Mckeon RN RN kj2 Niels York, EMR SPECIALIST-C EMR SPECIALIST-Cdr5
[2025-02-08 19:15] VITALS: O2SAT 100
[2025-02-08 19:20] VITALS: BP 121/90; TEMP 98
== END 2025-02-08 14:11 | disposition home or self-care (01) ==
LOC: ER 12:40
DX: K64.8 Other hemorrhoids (principal)
CPT/HCPCS: 96372; 99284

== ENCOUNTER 2025-03-13 09:18 | Emergency (ER) | payer SELFPAY ==
--- OUTSIDE RECORDS SUMMARY | 2025-03-13 09:21 | XMS REPORT | Clinical Summary ---
Author Name Unknown Organization [facility] Address [address] [place] [address] Care Team Providers Care Senior System Operator Name Role Phone Radha Montgomery Unavailable Radha Montgomery Unavailable Encounters Date Type Department Care Team Description 02/25/2025 2:10 PM CDT Ancillary Procedure [facility] [address] [place] [id number] Mammography abnormal 02/25/2025 1:10 PM CDT Ancillary Procedure [address] [address] Mammography abnormal 02/25/2025 Travel 01/26/2025 10:05 AM CDT Ancillary Procedure Mobile M[facility] [address] [place] [address] Jake Raymond MD Screening mammography after 03/13/2024 Family History Medical History Relation Name Comments [...] Pneumococcal Vaccine: 50+ Ye ars (1 of 1 - PCV) 01/25/2024 COVID-19 Vaccine ( season) 2025 01/08/2022, 09/27/2020, 08/26/2020 Influenza Vaccine (#1) 2025 Procedures Procedure Name Priority Date/Time Associated Diagnosis Comments US BREAST LIMITED RIGHT Routine 02/25/2025 2:47 PM CDT Mammography abnormal MAMMO DIGITAL DIAGNOSTIC RIGHT W BOUCHRA Routine 02/25/2025 1:45 PM CDT Mammography abnormal MOBILE MAMMO DIGITAL SCREENING BILATERAL W BOUCHRA Routine 01/26/2025 10:54 AM CDT Screening mammography after 03/13/2024 Results * US Breast Limited Right (02/25/2025 2:47 PM CDT) Anatomical Region Laterality Modality Breast Right Ultrasound Impressions 02/25/2025 2:55 PM CDT No sonographic evidence of malignancy. Overall BI-RADS Category: 2 - Benign Recommend return to annual screening mammography, due on 02/2026. Narrative 02/25/2025 2:55 PM CDT CLINICAL INDICATION: Patient is a 50 y.o. female and is seen for abnormal mammogram. US Breast Limited Right COMPARISON: The present examination has been compared to prior imaging studies performed : 01/26/2025 Mobile Mammography Screening Bilateral with Bouchra at [facility], 02/25/2025 Diagnostic Mammogram w Bouchra - Right at [facility] TECHNIQUE: Real-time sonographic imaging was performed on the following regions: right, breast (limited to less than 4 quadrants). Images were obtained in multiple scanning planes. FINDINGS: Targeted sonographic imaging of the right breast 12 o'clock position, 7 cm from the nipple demonstrates an oval, circumscribed, anechoic cyst measuring 0.5 x 0.4 x 0.3 cm. This finding corresponds to the mammographic findings. Scattered additional small cysts and fibrocystic changes are present. The findings were reported to the patient via a air brush decorator. us Radha HENSLEY US ORDERABLES Final Result * (ABNORMAL) Diagnostic Mammogram w Bouchra - Right (02/25/2025 1:45 PM CDT) Anatomical Region Laterality Modality Breast Right Mammography Impressions 02/25/2025 2:53 PM CDT Right 1) Mass: Right breast 0.5 cm mass at 12 o'clock. Additional Imaging: Breast Ultrasound is recommended. Overall BI-RADS Category: 0 - Incomplete: Needs Additional Imaging Evaluation Additional Imaging: Breast Ultrasound is recommended for the right breast. Narrative 02/25/2025 2:53 PM CDT CLINICAL INDICATION: Patient is a 50 y.o. female and is seen for abnormal mammogram. Diagnostic Mammogram w Bouchra - Right Computer-aided detection was utilized by the radiologist in the interpretation of this examination. Tomosynthesis was performed in CC and MLO projections. COMPARISON: The present examination has been compared to prior imaging studies performed : 01/26/2025 Mobile Mammography Screening Bilateral with Bouchra at [facility] FINDINGS: The breasts are heterogeneously dense, which may obscure small masses. Right 1) Mass: There is a 0.5 cm oval mass with circumscribed margins seen in the right breast at 12 o'clock, 7 cm from the nipple. Radha Montgomery [facility] MAMMOGRAPHY ORDERABLES Final Result * (ABNORMAL) Mobile Mammography Screening Bilateral with Bouchra (01/26/2025 10:54 AM CDT) Anatomical Region Laterality [...] for screening. Mobile Mammography Screening Bilateral with Bouchra Computer-aided detection was utilized by the radiologist [...] other abnormal findings in the left breast. Radha Montgomery IM MAMMOGRAPHY ORDERABLES Final Result after 03/13/2024 Advance Directives * Full Code (Latest Code Status on File) Date Activated Date Inactivated Comments 01/26/2025 10:41 AM Update based o n Advanced Directive Documentation Care Teams Senior System Operator Relationship Specialty Start Date End Date Radha Montgomery [id number] [facility] [address] [place] [address] PCP - External Referring 02/10/25 Radha Montgomery [id number] [facility] [address] [place] [address] PCP - External Follow Up A 02/10/25
[2025-03-13] MEDS ORDERED: LORAZEPAM 0.5 MG TABLET ONE (09:34)
--- NOTE | 2025-03-13 10:55 | RAD REPORT ---
EXAMINATION: ONE VIEW CHEST XR CLINICAL INDICATION: CHEST PAIN TECHNIQUE: Frontal chest projection is submitted. Examination is limited by patient positioning and t echnique. COMPARISON: 08/14/2024 FINDINGS: The lungs are well inflated and clear. The heart is upper limit of normal in size. No displaced fract ures identified. IMPRESSION: No acute intrathoracic abnormalities.
--- NOTE | 2025-03-13 11:03 | ER ---
Nurse's Notes [facility] Name: Davida Hodges Age: 50 yrs Sex: Female : 1975 Arrival Date: 03/13/2025 Time: 09:18 Bed 4 Private MD: Diagnosis: Anxiety disorder, unspecified Presentation: 03/13 09:22 Chief complaint: Patient states: intermittent anxiety attacks that began this morning, aa5 reports chest pressure with anxiety attacks. : Coronavirus screen: At this time, the client does not indicate any symptoms associated aa5 with coronavirus-19. Ebola Screen: Patient denies travel to an Ebola-affected area in the 21 days before illness onset. Initial Sepsis Screen: Does the patient meet any 2 criteria? No. Patient's initial sepsis screen is negative. Does the patient have a suspected source of infection? No. Patient's initial sepsis screen is negative. Risk Assessment: Do you want to hurt yourself or someone else? Patient reports no desire to harm self or others. Onset of symptoms was March 13, 2025. 09:22 Acuity: CARMITA 3 aa5 09:22 Method Of Arrival: Ambulatory aa5 Historical: - Allergies: 09:22 CARBAMAZEPINE DERIVATIVES; aa5 09:22 Depakote; aa5 09:22 Tegretol; aa5 - PMHx: 09:22 hemmorrhoids; Seizure; Anxiety; aa5 09:47 Depressive disorder; Bipolar disorder; aa5 - Immunization history:: Adult Immunizations unknown. - Infectious Disease History:: Denies. - Family history:: not pertinent. - Social history:: Smoking status: Patient denies any tobacco usage or history of. - Hospitalizations: : No recent hospitalization is reported. Screenin:22 [facility] ED Fall Risk Assessment (Adult) History of falling in the last 3 months, aa5 including since admission No falls in past 3 months (0 pts) Confusion or Disorientation No (0 pts) Intoxicated or Sedated No (0 pts) Impaired Gait No (0 pts) Mobility Assist Device Used No (0 pt) Altered Elimination No (0 pt) Score/Fall Risk Level 0 - 2 = Low Risk Oriented to surroundings, Maintained a safe environment, Educated pt \T\ family on fall prevention, incl call for assistance when getting out of bed, Assessed \T\ reinforced patient's understanding of fall precautions. Abuse screen: Denies threats or abuse. Nutritional screening: No deficits noted. Tuberculosis screening: No symptoms or risk factors identified. Assessment: 09:22 General: Appears uncomfortable, Behavior is cooperative, anxious. Pain: Complains of aa5 pain in chest Pain does not radiate. Pain currently is 8 out of 10 on a pain scale. Quality of pain is described as pressure, Pain began this morning Is intermittent, episodic, lasting a few seconds. Neuro: Level of Consciousness is awake, alert, obeys commands, Oriented to person, place, time, situation. Cardiovascular: Heart tones S1 S2 present Pulses are all present. are 3+ in right radial artery and left radial artery Rhythm is regular. Respiratory: Airway is patent Respiratory effort is even, unlabored, Respiratory pattern is regular, symmetrical. GI: No signs and/or symptoms were reported involving the gastrointestinal system. : No signs and/or symptoms were reported regarding the genitourinary system. EENT: No signs and/or symptoms were reported regarding the EENT system. Derm: Skin is pink, warm \T\ dry. Musculoskeletal: Range of motion: intact in all extremities. 09:40 Reassessment: Patient is alert, oriented x 3, equal unlabored respirations, skin aa5 warm/dry/pink. General: Appears uncomfortable, Behavior is cooperative, anxious. 10:30 Reassessment: Patient is alert, oriented x 3, equal unlabored respirations, skin aa5 warm/dry/pink. Patient denies pain at this time. Patient states feeling better. Patient states symptoms have improved. General: Appears comfortable, Behavior is calm, cooperative. 11:00 Reassessment: Patient is alert, oriented x 3, equal unlabored respirations, skin aa5 warm/dry/pink. Patient states feeling better. Patient states symptoms have improved. General: Appears comfortable, Behavior is calm, cooperative. Vital Signs: 09:22 BP 137 / 83; Pulse 82; Resp 22 S; Temp 98(TE); Pulse Ox 99% on R/A; Pain 8/10; aa5 11:00 BP 139 / 93; Pulse 74; Resp 14 S; Pulse Ox 97% on R/A; aa5 09:22 Pain Scale: Adult aa5 ED Course: 09:20 Patient arrived in ED. cj3 09:22 Yong Banks MD is Attending Physician. rn 09:22 Arm band placed on Patient placed in an exam room, on a stretcher. aa5 09:22 Patient has correct armband on for positive identification. Placed in gown. Bed in low aa5 position. Call light in reach. Side rails up X2. Adult w/ patient. Provided Education on: use of call light . Client placed on continuous cardiac and pulse oximetry monitoring. NIBP monitoring applied. potline monitor on. Pulse ox on. NIBP on. 09:25 Laila Foreman RN is Primary Nurse. iw 09:40 EKG done, by ED staff, reviewed by Yong Banks MD. aa5 09:49 Triage completed. aa5 10:51 XRAY Chest (1 view) In Process Unspecified. EDMS 11:19 No provider procedures requiring assistance completed. Patient did not have IV access aa5 during this emergency room visit. Patient maintains SpO2 saturation greater than 95% on room air. Administered Medications: 09:36 Drug: LORazepam PO 0.5 mg PO once Route: PO; iw 10:30 Follow up: Response: No adverse reaction; Anxiety decreased aa5 Medication: 09:36 VIS not applicable for this client. aa5 Outcome: 11:02 Discharge ordered by . rn 11:15 Discharged to home ambulatory, with family, aa5 11:15 Condition: improved 11:15 Discharge instructions given to patient, family, Instructed on discharge instructions, follow up and referral plans. Demonstrated understanding of instructions, follow-up care, 11:16 Patient left the ED. aa5 Signatures: Dispatcher [employer] EDOR Laila Foreman RN RN iw Yong Banks MD MD rn Calderon, Audri, RN RN aa5 Pippa Luz cj3
--- NOTE | 2025-03-13 11:03 | EDPHYS ---
Physician Documentation [facility] Name: Davida Hodges Age: 50 yrs Sex: Female : 1975 Arrival Date: 03/13/2025 Time: 09:18 Bed 4 Private MD: ED Physician Yong Banks HPI: 03/13 09:39 This 50 yrs old Female presents to ER via Unassigned with complaints of Chest rn Pain. 09:39 Patient reports 1 to 2 days of chest pain and "anxiety attacks. Patient suffers from rn severe anxiety and has numerous visits here for anxiety. Unknown trigger at this time. No cough or shortness of breath. No fever. No trauma. States coming and going and is very emotional.. Historical: - Allergies: 09:22 CARBAMAZEPINE DERIVATIVES; aa5 09:22 Depakote; aa5 09:22 Tegretol; aa5 - PMHx: 09:22 hemmorrhoids; Seizure; Anxiety; aa5 09:47 Depressive disorder; Bipolar disorder; aa5 - Immunization history:: Adult Immunizations unknown. - Infectious Disease History:: Denies. - Family history:: not pertinent. - Social history:: Smoking status: Patient denies any tobacco usage or history of. - Hospitalizations: : No recent hospitalization is reported. ROS: 09:39 Constitutional: Negative for fever, chills, and weight loss, Neck: Negative for injury, rn pain, and swelling, Cardiovascular: Negative for palpitations, and edema, Respiratory: Negative for shortness of breath, cough, wheezing, and pleuritic chest pain, Abdomen/GI: Negative for abdominal pain, nausea, vomiting, diarrhea, and constipation, Back: Negative for injury and pain, MS/Extremity: Negative for injury and deformity, Skin: Negative for injury, rash, and discoloration, Neuro: Negative for headache, weakness, numbness, tingling, and seizure, Exam: 09:39 Constitutional: This is a well developed, well nourished patient who is awake, alert, rn and in no acute distress ambulatory to room without assistance or difficulty. Appears anxious and tearful Cardiovascular: Regular rate and rhythm. No pulse deficits. Respiratory: Speaking full sentences, unlabored Abdomen/GI: No masses, no tenderness MS/ Extremity: Pulses equal, no cyanosis. Neurovascular intact. Full, normal range of motion. Equal circumference. Neuro: Awake and alert, GCS 15, oriented to person, place, time, and situation. Cranial nerves II-XII grossly intact. Motor strength 5/5 in all extremities. Sensory grossly intact. Cerebellar exam normal. Normal gait. 09:39 ECG was reviewed by the Attending Physician. Vital Signs: 09:22 BP 137 / 83; Pulse 82; Resp 22 S; Temp 98(TE); Pulse Ox 99% on R/A; Pain 8/10; aa5 11:00 BP 139 / 93; Pulse 74; Resp 14 S; Pulse Ox 97% on R/A; aa5 09:22 Pain Scale: Adult aa5 MDM: 09:22 Medical Screening Exam initiated rn 10:49 Independent interpretation of the following test(s) in the Emergency Department EKG: rn See my EKG interpretation above X-Ray: My interpretation is Chest x-ray image negative for pneumonia or pneumothorax per my interpretation.. 11:01 Differential diagnosis: acute myocardial infarction, acute pericarditis, anxiety, chest rn wall pain, costochondritis, esophagitis, gastritis, gastroesophageal reflux disease (GERD), pleurisy, pneumonia, pneumothorax. HEART Score: History: Slightly Suspicious (0), ECG: Normal (0), Age: > 45 and < 65 years (1), Risk Factors: No Risk Factors Known (0). Data reviewed: vital signs, nurses notes, EKG, radiologic studies, plain films, and as a result, I will discharge patient. Care significantly affected by the following chronic conditions: Hypertension, Anxiety. Counseling: I had a detailed discussion with the patient and/or guardian regarding the historical points, exam findings, and any diagnostic results supporting the discharge/admit diagnosis, lab results, radiology results, the need for outpatient follow up, to return to the emergency department if symptoms worsen or persist or if there are any questions or concerns that arise at home. Response to treatment: the patient's symptoms have markedly improved after treatment, Markedly improved after Ativan p.o., and as a result, I will discharge patient. Special discussion: Based on the patient's history, exam, and Dx evaluation, there is no indication for emergent intervention or inpatient Tx. It is understood by the patient/guardian that if the Sx's persist or worsen they need to return immediately for re-evaluation. I discussed with the patient/guardian in detail that at this point there is no indication for admission to the hospital. It is understood, however, that if the symptoms persist or worsen the patient needs to return immediately for re-evaluation. Based on the history and exam findings, there is no indication for further emergent testing or inpatient evaluation. I discussed with the patient/guardian the need to see the primary care provider for further evaluation of the symptoms. I discussed with the patient/guardian the need to see the psychiatrist for further evaluation of the symptoms. ED course: I have personally reviewed all of the results, including but not limited to blood tests and imaging deemed necessary to safely discharge this patient at this time. All results given to and printed out for patient. I personally went over all the results with the patient and answered all questions. Patient will follow-up with PCP and or specialist as discussed. Return precautions given and understood.. 03/13 09:28 Order name: XRAY Chest (1 view); Complete Time: 11:01 rn 03/13 09:24 Order name: EKG; Complete Time: : rn 03/13 09:24 Order name: EKG - Nurse/Tech; Complete Time: :45 rn EC:39 Rate is 80 beats/min. Rhythm is regular. QRS [place] is Normal. QRS interval is normal. QT rn interval is normal. No Q waves. T waves are Normal. No ST changes noted. Clinical impression: NSR w/ Non-specific ST/T Changes. Interpreted by me. Reviewed by me. Administered Medications: 09:36 Drug: LORazepam PO 0.5 mg PO once Route: PO; iw 10:30 Follow up: Response: No adverse reaction; Anxiety decreased aa5 Disposition Summary: 03/13/25 11:02 Discharge Ordered Notes: Location: Home rn Problem: new rn Symptoms: have improved rn Condition: Stable rn Diagnosis - Anxiety disorder, unspecified rn Followup: rn - With: Private Physician - When: As needed - Reason: Recheck today's complaints, Re-evaluation by your physician Discharge Instructions: - Discharge Summary Sheet rn - Panic Attack rn - Managing Anxiety, Adult rn Forms: - Medication Reconciliation Form rn - Antibiotic furnishings conservator - Prescription Opioid Use rn - Patient Portal Instructions rn - Leadership Thank You Letter rn Signatures: Dispatcher [employer] Laila Warren RN RN iw Banks, Yong, MD MD rn Beasley, Maggy, RN RN aa5
[2025-03-13 11:20] VITALS: TEMP 98
[2025-03-13 11:22] VITALS: BP 139/93; O2SAT 97
== END 2025-03-13 11:16 | disposition home or self-care (01) ==
LOC: ER 09:18
DX: F41.9 Anxiety disorder, unspecified (principal); F31.9 Bipolar disorder, unspecified; Z88.8 Allergy status to other drugs, medicaments and biological substances
CPT/HCPCS: 71045; 93005; 99284

== ENCOUNTER 2025-03-13 23:30 | Emergency (ER) | payer SELFPAY ==
--- OUTSIDE RECORDS SUMMARY | 2025-03-13 23:32 | XMS REPORT | Clinical Summary ---
Author Name Unknown Organization [facility] Address [address] [place] [address] Care Team Providers Care Timekeeper Name Role Phone Radha Montgomery Unavailable Radha Montgomery Unavailable Encounters Date Type Department Care Team Description 02/25/2025 2:10 PM CDT Ancillary Procedure [facility] [address] [place] [id number] Mammography abnormal 02/25/2025 1:10 PM CDT Ancillary Procedure [address] [address] Mammography abnormal 02/25/2025 Travel 01/26/2025 10:05 AM CDT Ancillary Procedure Mobile M[facility]ography [address] [place] [address] Jake Raymond MD Screening mammography after 03/13/2024 [...] Mobile Mammography Screening Bilateral with Bouchra at [facility], 02/25/2025 Diagnostic Mammogram w Bouchra - Right at [facility] TECHNIQUE: Real-time sonographic imaging was performed on [...] were reported to the patient via a ripper operator. us Radha HENSLEY US ORDERABLES Final Result [...] Mobile Mammography Screening Bilateral with Bouchra at [facility] FINDINGS: The breasts are heterogeneously dense, which may obscure small masses. Right 1) Mass: There is a 0.5 cm oval mass with circumscribed margins seen in the right breast at 12 o'clock, 7 cm from the nipple. Radha Montgomery [facility] MAMMOGRAPHY ORDERABLES Final Result * (ABNORMAL) Mobile [...] o n Advanced Directive Documentation Care Teams Timekeeper Relationship Specialty Start Date End Date Radha Montgomery [id number] [facility] [address] [place] [address] PCP - External Referring 02/10/25 Radha Montgomery [id number] [facility] [address] [place] [address] PCP - External Follow Up A 02/10/25
--- NOTE | 2025-03-13 23:48 | ER ---
Nurse's Notes [facility] Name: Davida Hodges Age: 50 yrs Sex: Female : 1975 Arrival Date: 03/13/2025 Time: 23:30 Bed 6 Private MD: Diagnosis: Presentation: 03/13 23:30 Chief complaint: EMS states: PT called EMS for ride to [facility]. When EMS declined to 3 transport, PT stated she needed to go to the hospital because she had a seizure 2 days ago. On arrival to ED, pt has no complaints, refuses vitals, ambulates to restroom then departs emergency department. provider notified. Coronavirus screen: Client denies travel out of the [place] in the last 14 days. Ebola Screen: No symptoms or risks identified at this time. Risk Assessment: Do you want to hurt yourself or someone else? Patient reports no desire to harm self or others. Onset of symptoms is unknown. 23:30 Method Of Arrival: EMS: [facility] 23:30 Acuity: CARMITA 5 lg3 Triage Assessment: 23:45 General: Appears in no apparent distress. comfortable, Behavior is calm, cooperative. lg3 General: Behavior is uncooperative. Pain: Denies pain. EENT: No deficits noted. No signs and/or symptoms were reported regarding the EENT system. Neuro: No deficits noted. [place] Agitation-Sedation Scale (RASS): 0 - Alert and Calm Level of Consciousness is awake, alert, obeys commands, Oriented to person, place, time, situation. Cardiovascular: No deficits noted. Denies chest pain, shortness of breath, Capillary refill < 3 seconds Clubbing of nail beds is absent JVD is absent Patient's skin is warm and dry. Respiratory: No deficits noted. Airway is patent Respiratory effort is even, unlabored, Respiratory pattern is regular, symmetrical. GI: No deficits noted. No signs and/or symptoms were reported involving the gastrointestinal system. Abdomen is round non-distended, obese. : No signs and/or symptoms were reported regarding the genitourinary system. Derm: No deficits noted. No signs and/or symptoms reported regarding the dermatologic system. Skin is intact, is healthy with good turgor, Skin is dry, Skin is normal, Skin temperature is warm. Musculoskeletal: No deficits noted. No signs and/or symptoms reported regarding the musculoskeletal system. Circulation, motion, and sensation intact. Range of motion: intact in all extremities. Historical: - Allergies: 23:45 CARBAMAZEPINE DERIVATIVES; lg3 23:45 Depakote; lg3 23:45 Tegretol; lg3 - PMHx: 23:45 Anxiety; Bipolar disorder; depressive disorder; hemmorrhoids; Seizure; lg3 - Immunization history:: Adult Immunizations up to date. - Infectious Disease History:: Denies. - Social history:: Smoking status: unknown. Screenin:46 [facility] ED Fall Risk Assessment (Adult) History of falling in the last 3 months, lg3 including since admission No falls in past 3 months (0 pts) Confusion or Disorientation No (0 pts) Intoxicated or Sedated No (0 pts) Impaired Gait No (0 pts) Mobility Assist Device Used No (0 pt) Altered Elimination No (0 pt) Score/Fall Risk Level 0 - 2 = Low Risk Oriented to surroundings, Maintained a safe environment, Educated pt \T\ family on fall prevention, incl call for assistance when getting out of bed, Assessed \T\ reinforced patient's understanding of fall precautions. Abuse screen: Denies threats or abuse. Denies injuries from another. Nutritional screening: No deficits noted. Tuberculosis screening: No symptoms or risk factors identified. Assessment: 23:46 General: see triage assessment. lg3 ED Course: 23:34 Patient arrived in ED. gm2 23:45 Triage completed. lg3 23:45 Arm band placed on right wrist. lg3 23:46 Patient has correct armband on for positive identification. lg3 23:46 No provider procedures requiring assistance completed. Patient did not have IV access lg3 during this emergency room visit. Administered Medications: No medications were administered Medication: 23:46 VIS not applicable for this client. lg3 Outcome: 23:46 Eloped from patient exam room, before seeing physician lg3 23:46 Condition: stable 23:48 Patient left the ED. lg3 Signatures: Berta Jane RN RN [email or web address] Catherine Monique gm2
== END 2025-03-13 23:48 | disposition left against medical advice (07) ==
LOC: ER 23:30
DX: R56.9 Unspecified convulsions (principal); Z53.21 Procedure and treatment not carried out due to patient leaving prior to being seen by health care provider; F31.9 Bipolar disorder, unspecified; F41.9 Anxiety disorder, unspecified
CPT/HCPCS: 99283

== ENCOUNTER 2025-03-15 18:15 | Emergency (ER) | payer SELFPAY ==
--- OUTSIDE RECORDS SUMMARY | 2025-03-15 18:17 | XMS REPORT | Clinical Summary ---
Author Name Unknown Organization [facility] [place] Address [address] [place] [address] Care Team Providers Care Bias Cutter Helper Name Role Phone Radha Montgomery Unavailable Radha Montgomery Unavailable Encounters Date Type Department Care Team Description 02/25/2025 2:10 PM CDT Ancillary Procedure [facility] [address] [place] [id number] Mammography abnormal 02/25/2025 1:10 PM CDT Ancillary Procedure [address] [address] Mammography abnormal 02/25/2025 Travel 01/26/2025 10:05 AM CDT Ancillary Procedure [facility] [address] [place] [address] Jake Raymond MD Screening mammography after 03/15/2024 Family History Medical History Relation Name Comments [...] 01/26/2025 10:54 AM CDT Screening mammography after 03/15/2024 Results * US Breast Limited Right (02/25/2025 [...] Mobile Mammography Screening Bilateral with Bouchra at [facility] [place], 02/25/2025 Diagnostic Mammogram w Bouchra - Right at [facility] TECHNIQUE: Real-time sonographic imaging was performed [...] were reported to the patient via a auto claims adjuster. us Radha HENSLEY US ORDERABLES Final Result [...] Mobile Mammography Screening Bilateral with Bouchra at [facility] FINDINGS: The breasts are heterogeneously dense, which may obscure small masses. Right 1) Mass: There is a 0.5 cm oval mass with circumscribed margins seen in the right breast at 12 o'clock, 7 cm from the nipple. Radha Montgomery [facility] MAMMOGRAPHY ORDERABLES Final Result * (ABNORMAL) Mobile [...] Montgomery IM MAMMOGRAPHY ORDERABLES Final Result after 03/15/2024 Advance Directives * Full Code (Latest Code Status on File) Date Activated Date Inactivated Comments 01/26/2025 10:41 AM Update based o n Advanced Directive Documentation Care Teams Bias Cutter Helper Relationship Specialty Start Date End Date Radha Montgomery [id number] [facility] [address] [place] [address] PCP - External Referring 02/10/25 Radha Montgomery [id number] [facility] [address] [place] [address] PCP - External Follow Up A 02/10/25
[2025-03-15] MEDS ORDERED: ONDANSETRON 4 MG/2 ML VIAL ONE (18:27)
[2025-03-15] MEDS ORDERED: MECLIZINE HCL 12.5 MG TAB ONE (18:28)
[2025-03-15] MEDS ORDERED: NA CHLORIDE 0.9% 500 ML ONE (18:28)
[2025-03-15] MEDS ORDERED: DIAZEPAM 2 MG TABLET ONE (18:28)
--- NOTE | 2025-03-15 18:50 | ER ---
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 Coronavirus screen: At af3 this time, the client does not indicate any symptoms associated with coronavirus-19. Ebola Screen: No symptoms or risks identified at this time. 17:59 Method Of Arrival: [facility] af3 18:03 Initial Sepsis Screen: Does the patient meet any 2 criteria? No. Patient's initial af3 sepsis screen is negative. Does the patient have a suspected source of infection? No. Patient's initial sepsis screen is negative. Risk Assessment: Do you want to hurt yourself or someone else? Patient reports no desire to harm self or others. Onset of symptoms was March 15, 2025. 18:03 Acuity: CARMITA 4 af3 Triage Assessment: 18:03 General: Appears in no apparent distress. uncomfortable, well groomed, well developed, af3 Behavior is calm, cooperative, appropriate for age. Pain: Complains of pain in top of head and forehead. Neuro: Level of Consciousness is awake, alert, obeys commands, Oriented to person, place, time, situation, Appropriate for age. Cardiovascular: Patient's skin is warm and dry. Respiratory: Airway is patent Respiratory effort is even, unlabored, Respiratory pattern is regular, symmetrical. GI:. 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 - Infectious Disease History:: Denies. - Social history:: Smoking status: unknown. - Family history:: not pertinent. - Hospitalizations: : No recent hospitalization is reported. Screenin:52 [facility] ED Fall Risk Assessment (Adult) History of falling in the last 3 months, af3 including since admission No falls in past 3 months (0 pts) Confusion or Disorientation No (0 pts) Intoxicated or Sedated No (0 pts) Impaired Gait No (0 pts) Mobility Assist Device Used No (0 pt) Altered Elimination No (0 pt) Score/Fall Risk Level 0 - 2 = Low Risk Oriented to surroundings, Maintained a safe environment, Educated pt \T\ family on fall prevention, incl call for assistance when getting out of bed. Abuse screen: Denies threats or abuse. Denies injuries from another. Nutritional screening: No deficits noted. Tuberculosis screening: No symptoms or risk factors identified. Assessment: 18:04 General: see triage assessment . af3 18:51 Reassessment: Patient appears in no apparent distress at this time. No changes from af3 previously documented assessment. Patient and/or family updated on plan of care and expected duration. Pain level reassessed. Patient is alert, oriented x 3, equal unlabored respirations, skin warm/dry/pink. 19:28 Reassessment: Patient is alert, oriented x 3, equal unlabored respirations, skin tb4 warm/dry/pink. General: Appears in no apparent distress. Neuro: Level of Consciousness is awake, alert, obeys commands, Oriented to person, place. Respiratory: Airway is patent Respiratory effort is even, unlabored, Respiratory pattern is regular, symmetrical. Derm: No signs and/or symptoms reported regarding the dermatologic system. Skin is intact, is healthy with good turgor, Skin is dry, Skin is normal. Musculoskeletal: Circulation, motion, and sensation intact. Range of motion: intact in all extremities. Vital Signs: 17:59 BP 159 / 89; Pulse 76; Resp 18; Temp 97.8; Pulse Ox 99% on R/A; af3 18:52 BP 133 / 83; Pulse 66; Resp 18; Pulse Ox 100% on R/A; af3 19:28 BP 129 / 72; Pulse 61; Resp 18; Pulse Ox 97% on R/A; tb4 ED Course: 17:55 Patient arrived in ED. bd 17:57 Yong Banks MD is Attending Physician. rn 17:59 Robyn Oliva RN is Primary Nurse. af3 18:03 Triage completed. af3 18:03 Arm band placed on. af3 18:35 Initial lab(s) drawn, by me, held in ED. Inserted saline lock: 20 gauge in right cm10 antecubital area, using aseptic technique. Blood collected. Flushed with 10 mL NS. 18:49 Shalom Carnes MD is Referral Physician. rn 18:52 Patient has correct armband on for positive identification. Bed in low position. Call af3 light in reach. Provided Education on: call light use . 18:52 No provider procedures requiring assistance completed. af3 19:28 Client placed on continuous cardiac and pulse oximetry monitoring. NIBP monitoring tb4 applied. Door closed. 20:18 IV discontinued, intact, bleeding controlled, No redness/swelling at site. Pressure tb4 dressing applied. Administered Medications: 18:35 Drug: Ondansetron IVP 4 mg IVP once; over 2 minutes Route: IVP; Site: right antecubital;af3 19:31 Follow up: Response: No adverse reaction tb4 18:35 Drug: Meclizine PO 50 mg PO once Route: PO; af3 19:31 Follow up: Response: No adverse reaction tb4 18:35 Drug: NS 0.9% IV 500 ml 500 ml IV at 1 bolus once; to be given as a bolus over 30 af3 minutes Volume: 500 ml; Route: IV; Rate: 1 bolus; Site: right antecubital; 19:31 Follow up: Response: No adverse reaction; IV Status: Completed infusion tb4 18:35 Drug: Diazepam PO 2 mg PO once Route: PO; af3 19:31 Follow up: Response: No adverse reaction; RASS: Alert and Calm (0) tb4 Medication: 18:53 VIS not applicable for this client. af3 Outcome: 18:49 Discharge ordered by . rn 20:18 Discharged to home via wheelchair, with family, tb4 20:18 Condition: stable 20:18 Discharge instructions given to patient, family, Instructed on discharge instructions, follow up and referral plans. Demonstrated understanding of instructions, follow-up care, medications, Prescriptions given X 2, 21:21 Patient left the ED. tb4 Signatures: Dorcas Powell Roman, MD MD rn Martinez, Clarissa, RN RN cm10 Robyn Oliva RN RN af3 Jonelle Bal RN RN tb4
--- NOTE | 2025-03-15 18:51 | EDPHYS ---
Physician Documentation [facility] Name: Davida Hodges Age: 50 yrs Sex: Female : 1975 Arrival Date: 03/15/2025 Time: 17:55 Bed IW9 Private MD: ED Physician Yong Banks HPI: 03/15 18:05 This 50 yrs old Female presents to ER via EMS with complaints of dizziness. rn 18:05 Patient reports dizziness since yesterday. Has a history of vertigo. Reports dizziness rn and trouble walking when standing up and changing head position. No head injury. No focal weakness or numbness. No vision changes. Has had this numerous times, states has not tried her vertigo medication. 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 Patient denies blood in the stool. No chest pain or shortness of breath.. 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 - Infectious Disease History:: Denies. - Social history:: Smoking status: unknown. - Family history:: not pertinent. - Hospitalizations: : No recent hospitalization is reported. ROS: 18:05 Constitutional: Negative for fever, chills, and weight loss, Cardiovascular: Negative rn for chest pain, palpitations, and edema, Respiratory: Negative for shortness of breath, cough, wheezing, and pleuritic chest pain, Abdomen/GI: Negative for abdominal pain, diarrhea, and constipation, MS/Extremity: Negative for injury and deformity, Skin: Negative for injury, rash, and discoloration, Neuro: + dizziness, negative for focal weakness, negative for vision changes. No speech changes. Exam: 18:05 Constitutional: This is a well developed, well nourished patient who is awake, alert, rn and in no acute distress. Head/Face: Normocephalic, atraumatic. Eyes: Symptoms reproducible when turning head and shows mild nystagmus with far right gaze deviation Neck: No meningismus Cardiovascular: Regular rate and rhythm. No pulse deficits. Respiratory: No increased work of breathing, no retractions or nasal flaring. Abdomen/GI: Soft, non-tender MS/ Extremity: Pulses equal, no cyanosis. Neuro: Awake and alert, GCS 15, oriented to person, place, time, and situation. Cranial nerves II-XII grossly intact. Motor strength 5/5 in all extremities. Sensory grossly intact. Vital Signs: 17:59 BP 159 / 89; Pulse 76; Resp 18; Temp 97.8; Pulse Ox 99% on R/A; af3 18:52 BP 133 / 83; Pulse 66; Resp 18; Pulse Ox 100% on R/A; af3 19:28 BP 129 / 72; Pulse 61; Resp 18; Pulse Ox 97% on R/A; tb4 MDM: 17:57 Medical Screening Exam initiated rn 18:48 Differential diagnosis: generalized weakness, hypovolemia, idiopathic dizziness, rn vertigo. Data reviewed: vital signs, nurses notes, old medical records, and as a result, I will discharge patient. Counseling: I had a detailed discussion with the patient and/or guardian regarding the historical points, exam findings, and any diagnostic results supporting the discharge/admit diagnosis, the need for outpatient follow up, to return to the emergency department if symptoms worsen or persist or if there are any questions or concerns that arise at home. Response to treatment: the patient's symptoms have markedly improved after treatment, and as a result, I will discharge patient. Special discussion: I discussed with the patient/guardian in detail that at this point there is no indication for admission to the hospital. It is understood, however, that if the symptoms persist or worsen the patient needs to return immediately for re-evaluation. Based on the history and exam findings, there is no indication for further emergent testing or inpatient evaluation. I discussed with the patient/guardian the need to see the neurologist for further evaluation of the symptoms. I discussed with the patient/guardian the need to see the primary care provider for further evaluation of the symptoms. ED course: Patient improved with meclizine and Valium and fluids. Patient has been seen multiple times in the past for vertigo, feels identical to previous vertigo and responding to medication. No focal neurological findings on exam. Will discharge home with as needed meclizine and nausea medication. Asked her to follow-up with neurology. Return precautions given and understood.. 03/15 17:57 Order name: IV Start; Complete Time: 18:35 rn Administered Medications: 18:35 Drug: Ondansetron IVP 4 mg IVP once; over 2 minutes Route: IVP; Site: right antecubital;af3 19:31 Follow up: Response: No adverse reaction tb4 18:35 Drug: Meclizine PO 50 mg PO once Route: PO; af3 19:31 Follow up: Response: No adverse reaction tb4 18:35 Drug: NS 0.9% IV 500 ml 500 ml IV at 1 bolus once; to be given as a bolus over 30 af3 minutes Volume: 500 ml; Route: IV; Rate: 1 bolus; Site: right antecubital; 19:31 Follow up: Response: No adverse reaction; IV Status: Completed infusion tb4 18:35 Drug: Diazepam PO 2 mg PO once Route: PO; af3 19:31 Follow up: Response: No adverse reaction; RASS: Alert and Calm (0) tb4 Disposition Summary: 03/15/25 18:49 Discharge Ordered Notes: Location: Home rn Problem: an acute exacerbation rn Symptoms: have improved rn Condition: Stable rn Diagnosis - Vertigo rn Followup: rn - With: Shalom Carnes MD - When: 2 - 3 days - Reason: Recheck today's complaints, Re-evaluation by your physician Discharge Instructions: - Discharge Summary Sheet rn - Vertigo rn Forms: - Medication Reconciliation Form rn - Antibiotic promotions intern - Prescription Opioid Use rn - Patient Portal Instructions rn - Leadership Thank You Letter rn Prescriptions: - ondansetron 4 mg Oral Tablet,disintegrating - take 1 tablet ORAL route every 8 hours As needed as needed for nausea and rn vomiting; 12 tablet; Refills: 0, Product Selection Permitted - Meclizine 25 mg Oral Tablet - take 1 tablet ORAL route every 8 hours As needed; 30 tablet; Refills: 0, rn Product Selection Permitted Signatures: Yong Banks MD MD rn Robyn Oliva RN RN af3 Jonelle Bal RN tb4
[2025-03-15 21:33] VITALS: BP 129/72; O2SAT 97
== END 2025-03-15 21:21 | disposition home or self-care (01) ==
LOC: ER 18:15
DX: R42 Dizziness and giddiness (principal)
CPT/HCPCS: 96361; 96374; 99285; J2405; J7040; J8597

== ENCOUNTER 2025-03-28 02:35 | Emergency (ER) | payer SELFPAY ==
--- OUTSIDE RECORDS SUMMARY | 2025-03-28 02:39 | XMS REPORT | Clinical Summary ---
Author Name Unknown Organization [facility] [place] Address [address] [place] [address] Care Team Providers Care Site Lead Name Role Phone Radha Montgomery Unavailable Radha Montgomery Unavailable Encounters Date Type Department Care Team Description 02/25/2025 2:10 PM CDT Ancillary Procedure [facility] [address] [place] [id number] Mammography abnormal 02/25/2025 1:10 PM CDT Ancillary Procedure [address] [address] Mammography abnormal 02/25/2025 Travel 01/26/2025 10:05 AM CDT Ancillary Procedure [facility] [address] [place] [address] Jake Raymond MD Screening mammography after 03/28/2024 Family History Medical History Relation Name Comments [...] 01/26/2025 10:54 AM CDT Screening mammography after 03/28/2024 Results * US Breast Limited Right (02/25/2025 [...] Mobile Mammography Screening Bilateral with Bouchra at [facility] [place], 02/25/2025 Diagnostic Mammogram w Bouchra - Right at [facility] TECHNIQUE: Real-time sonographic imaging was performed [...] were reported to the patient via a parts interpreter. us Radha HENSLEY US ORDERABLES Final Result [...] Mammography Screening Bilateral with Bouchra at [facility] FINDINGS: The breasts are heterogeneously dense, which may obscure small masses. Right 1) Mass: There is a 0.5 cm oval mass with circumscribed margins seen in the right breast at 12 o'clock, 7 cm from the nipple. Radha Montgomery [facility] MAMMOGRAPHY ORDERABLES Final Result * (ABNORMAL) [...] Montgomery IM MAMMOGRAPHY ORDERABLES Final Result after 03/28/2024 Advance Directives * Full Code (Latest Code Status on File) Date Activated Date Inactivated Comments 01/26/2025 10:41 AM Update based o n Advanced Directive Documentation Care Teams Site Lead Relationship Specialty Start Date End Date Radha Montgomery [id number] [facility] [address] [place] [address] PCP - External Referring 02/10/25 Radha Montgomery [address] [facility] [address] [place] [address] PCP - External Follow Up A 02/10/25
[2025-03-28] MEDS ORDERED: IBUPROFEN 400 MG TAB ONE (02:54)
[2025-03-28 03:30] LABS: Influenza A Ag Negative; Influenza B Ag Negative
[2025-03-28 03:31] LABS: SARS-CoV-2 Antigen Rapid Res Positive (Negative)
--- NOTE | 2025-03-28 05:40 | ER ---
Nurse's Notes [facility] Name: Davida Hodges Age: 50 yrs Sex: Female : 1975 Arrival Date: 03/28/2025 Time: 02:35 Bed IW3 Private MD: Diagnosis: Acute COVID-19, acute febrile illness Presentation: 03/28 02:36 Chief complaint: Patient states: NASAL CONGESTION, RUNNY NOSE, AND FEVER. ha1 02:36 Coronavirus screen: Client denies travel out of the [place] in the last 14 days. Ebola ha1 Screen: No symptoms or risks identified at this time. Initial Sepsis Screen: Does the patient meet any 2 criteria? No. Patient's initial sepsis screen is negative. Does the patient have a suspected source of infection? No. Patient's initial sepsis screen is negative. Risk Assessment: Do you want to hurt yourself or someone else? Patient reports no desire to harm self or others. Onset of symptoms was March 27, 2025. 02:36 Method Of Arrival: EMS: [email or web address] ha1 02:36 Acuity: CARMITA 4 ha1 02:54 Care prior to arrival: Medication(s) given: Tylenol, 1000 mg. Triage Assessment: 03:01 General: Appears uncomfortable, Behavior is cooperative. Pain: Complains of pain in ha1 BODY ACHES. EENT: Reports nasal congestion. Neuro: Level of Consciousness is awake, alert, obeys commands, Oriented to person, place, time, situation. Cardiovascular: Capillary refill < 3 seconds Patient's skin is warm and dry. Respiratory: Airway is patent Respiratory effort is even, unlabored, Respiratory pattern is regular, symmetrical. Historical: - Allergies: 03:01 CARBAMAZEPINE DERIVATIVES; ha1 03:01 Depakote; ha1 03:01 Tegretol; ha1 - PMHx: 03:01 Anxiety; Bipolar disorder; depressive disorder; hemmorrhoids; Seizure; ha1 - Immunization history:: Adult Immunizations unknown. - Infectious Disease History:: Denies. - Social history:: Smoking status: Patient denies any tobacco usage or history of. Screenin:06 [facility] ED Fall Risk Assessment (Adult) History of falling in the last 3 months, ha1 including since admission No falls in past 3 months (0 pts) Confusion or Disorientation No (0 pts) Intoxicated or Sedated No (0 pts) Impaired Gait Yes (1 pt) Mobility Assist Device Used No (0 pt) Altered Elimination No (0 pt) Score/Fall Risk Level 0 - 2 = Low Risk Oriented to surroundings, Maintained a safe environment, Educated pt \T\ family on fall prevention, incl call for assistance when getting out of bed, Hourly rounding (assess needs \T\ fall precautionary measures) done. Abuse screen: Denies threats or abuse. Denies injuries from another. Nutritional screening: No deficits noted. Tuberculosis screening: No symptoms or risk factors identified. Assessment: 06:05 Reassessment: Patient and/or family updated on plan of care and expected duration. Pain ha1 level reassessed. Patient is alert, oriented x 3, equal unlabored respirations, skin warm/dry/pink. Patient denies pain at this time. Patient states feeling better. Patient states symptoms have improved. Vital Signs: 02:36 BP 121 / 86; Pulse 104; Resp 18 S; Temp 102.1(O); Pulse Ox 99% on R/A; Weight 65.77 kg; ha1 Height 5 ft. 0 in. ; 05:45 BP 112 / 63; Pulse 81; Resp 18 S; Temp 98.2(O); Pulse Ox 99% on R/A; ha1 02:36 Body Mass Index 28.32 (65.77 kg, 152.4 cm) ha1 Ingrid Coma Score: 19:56 Eye Response: spontaneous(4). Motor Response: obeys commands(6). Verbal Response: sp4 oriented(5). Total: 15. ED Course: 02:44 Patient arrived in ED. kl 02:50 Sebastian Silva MD is Attending Physician. sp4 02:55 Patient has correct armband on for positive identification. Bed in low position. Call [facility] light in reach. Side rails up X 1. 02:55 Provided Education on: plan of care . ha1 02:55 Arm band placed on right wrist. ha1 03:00 No provider procedures requiring assistance completed. Maintain EMS IV. Dressing ha1 intact. Good blood return noted. Site clean \T\ dry. Gauge \T\ site: 20 g. LAC. 03:01 Triage completed. ha1 03:05 COVID-19 Ag + Flu A+B Ag Sent. ha1 06:08 IV discontinued, intact, bleeding controlled, No redness/swelling at site. Pressure ha1 dressing applied. Administered Medications: 03:05 Drug: Ibuprofen PO 800 mg PO once Route: PO; ha1 04:00 Follow up: Response: No adverse reaction; Marked relief of symptoms; Temperature is ha1 decreased Medication: 06:08 VIS not applicable for this client. ha1 Outcome: 05:40 Discharge ordered by . antoine 06:07 Discharged to home ambulatory, ha1 06:07 Condition: stable 06:07 Discharge instructions given to patient, Instructed on discharge instructions, follow up and referral plans. medication usage, Demonstrated understanding of instructions, follow-up care, medications, Prescriptions given X 2, 06:08 Patient left the ED. ha1 Signatures: Sandra Bach RN RN kl Ayala, Heidy, RN RN ha1 Sebastian Silva MD MD sp4
--- NOTE | 2025-03-28 05:40 | EDPHYS ---
Physician Documentation [facility] Name: Davida Hodges Age: 50 yrs Sex: Female : 1975 Arrival Date: 03/28/2025 Time: 02:35 Bed IW3 Private MD: ED Physician Sebastian Silva HPI: 03/28 02:52 This 50 yrs old Female presents to ER via Unassigned with complaints of fever .sp4 19:56 Patient is a very pleasant 50-year-old female with history of bipolar disorder anxiety sp4 depression hemorrhoids and seizures, presents with EMS for acute onset of fever. EMS does report fever on arrival at 101.0 EMS has administered IV acetaminophen.. Historical: - Allergies: 03:01 CARBAMAZEPINE DERIVATIVES; ha1 03:01 Depakote; ha1 03:01 Tegretol; ha1 - PMHx: 03:01 Anxiety; Bipolar disorder; depressive disorder; hemmorrhoids; Seizure; ha1 - Immunization history:: Adult Immunizations unknown. - Infectious Disease History:: Denies. - Social history:: Smoking status: Patient denies any tobacco usage or history of. ROS: 19:56 Constitutional: Positive for fever, negative for chills sp4 19:56 All other systems are negative, Exam: 19:56 Constitutional: This is a well developed, well nourished patient who is awake, alert, sp4 and in no acute distress. Patient has signs of depressed mood Head/Face: Normocephalic, atraumatic. Eyes: Pupils equal round and reactive to light, extra-ocular motions intact. Lids and lashes normal. Conjunctiva and sclera are not injected. Cornea within normal limits. Periorbital areas with no swelling, redness, or edema. ENT: Nares patent. No nasal discharge, no septal abnormalities noted. Tympanic membranes are normal and external auditory canals are clear. Oropharynx with no redness, swelling, or masses, exudates, or evidence of obstruction, uvula midline. Mucous membranes moist. Neck: Trachea midline, no thyromegaly or masses palpated, and no cervical lymphadenopathy. Supple, full range of motion without nuchal rigidity, or vertebral point tenderness. Chest/axilla: Normal chest wall appearance and motion. Nontender with no deformity. No lesions are appreciated. Cardiovascular: Regular rate and rhythm with a normal S1 and S2. No gallops, murmurs, or rubs. No pulse deficits. Respiratory: Lungs have equal breath sounds bilaterally, clear to auscultation and percussion. No rales, rhonchi or wheezes noted. No increased work of breathing, no retractions or nasal flaring. Abdomen/GI: Soft, with normal bowel sounds. No distension or tympany. No guarding or rebound. No evidence of tenderness throughout. Back: No spinal tenderness. No costovertebral tenderness. Skin: Warm, dry with normal turgor. Normal color with no rashes, no lesions, and no evidence of cellulitis. MS/ Extremity: Pulses equal, no cyanosis. Neurovascular intact. Full, normal range of motion. Neuro: Awake and alert, GCS 15, oriented to person, place, cooperative for exam, normal gait, no signs of lateralizing deficit Vital Signs: 02:36 BP 121 / 86; Pulse 104; Resp 18 S; Temp 102.1(O); Pulse Ox 99% on R/A; Weight 65.77 kg; ha1 Height 5 ft. 0 in. ; 05:45 BP 112 / 63; Pulse 81; Resp 18 S; Temp 98.2(O); Pulse Ox 99% on R/A; ha1 02:36 Body Mass Index 28.32 (65.77 kg, 152.4 cm) ha1 [place] Coma Score: 19:56 Eye Response: spontaneous(4). Motor Response: obeys commands(6). Verbal Response: sp4 oriented(5). Total: 15. MDM: 02:51 Medical Screening Exam initiated sp4 19:58 Differential diagnosis: viral Infection, bacterial infection, URI, bronchitis, UTI, sp4 gastroenteritis. Data reviewed: vital signs, nurses notes, EMS record, old medical records, lab test result(s). Consideration of Admission/Observation Escalation of care including admission/observation considered. ED course: Patient positive for COVID. Advised home quarantine for the next 5 days. Advised symptomatic management, prescribed ondansetron and ibuprofen.. 03/28 02:51 Order name: COVID-19 Ag + Flu A+B Ag; Complete Time: 04:24 sp4 Administered Medications: 03:05 Drug: Ibuprofen PO 800 mg PO once Route: PO; ha1 04:00 Follow up: Response: No adverse reaction; Marked relief of symptoms; Temperature is ha1 decreased Disposition: 20:00 Chart complete. sp4 Disposition Summary: 03/28/25 05:40 Discharge Ordered Notes: Location: Home sp4 Problem: new sp4 Symptoms: have improved sp4 Condition: Stable sp4 Diagnosis - Acute COVID-19, acute febrile illness sp4 Followup: sp4 - With: Private Physician - When: 7 - 10 days - Reason: Recheck today's complaints Discharge Instructions: - Discharge Summary Sheet sp4 - COVID-19 sp4 Forms: - Patient Portal Instructions sp4 Prescriptions: - Ibuprofen 600 mg Oral Tablet - take 1 tablet ORAL route every 6 hours As needed take with food; 30 tablet; sp4 Refills: 0, Product Selection Permitted - ondansetron 8 mg Oral Tablet,disintegrating - take 1 tablet ORAL route every 8 hours PRN nausea; 30 tablet; Refills: 0, sp4 Product Selection Permitted Signatures: Dispatcher [employer] Eugenia Murdock RN RN 1 Sebastian Silva MD MD sp4
[2025-03-28 06:21] VITALS: O2SAT 99
[2025-03-28 06:23] VITALS: BP 121/86; TEMP 102.1
== END 2025-03-28 06:08 | disposition home or self-care (01) ==
LOC: ER 02:35
DX: U07.1 COVID-19 (principal)
CPT/HCPCS: 36415; 87428; 99284

== ENCOUNTER 2025-04-03 17:59 | Emergency (ER) | payer SELFPAY ==
--- OUTSIDE RECORDS SUMMARY | 2025-04-03 18:02 | XMS REPORT | Clinical Summary ---
Author Name Unknown Organization [facility] [place] Address [address] [place] [address] Care Team Providers Care Tester Waste Disposal Leakage Name Role Phone Radha Montgomery Unavailable Radha Montgomery Unavailable Encounters Date Type Department Care Team Description 02/25/2025 2:10 PM CDT Ancillary Procedure [facility] [address] [place] [id number] Mammography abnormal 02/25/2025 1:10 PM CDT Ancillary Procedure [address] [id number] Mammography abnormal 02/25/2025 Travel 01/26/2025 10:05 AM CDT Ancillary Procedure [facility] [address] [place] [address] Jake Raymond MD Screening mammography after 04/03/2024 Family History Medical History Relation Name Comments [...] 01/26/2025 10:54 AM CDT Screening mammography after 04/03/2024 Results * US Breast Limited Right (02/25/2025 [...] Mobile Mammography Screening Bilateral with Bouchra at [facility] [place], 02/25/2025 Diagnostic Mammogram w Bouchra - Right at [facility] TECHNIQUE: Real-time sonographic imaging was performed on [...] were reported to the patient via a police service technician. us Radha HENSLEY US ORDERABLES Final Result [...] Mobile Mammography Screening Bilateral with Bouchra at [facility] FINDINGS: The breasts are heterogeneously dense, which may obscure small masses. Right 1) Mass: There is a 0.5 cm oval mass with circumscribed margins seen in the right breast at 12 o'clock, 7 cm from the nipple. Radha Montgomery [facility] MAMMOGRAPHY ORDERABLES Final Result * (ABNORMAL) Mobile [...] Montgomery IM MAMMOGRAPHY ORDERABLES Final Result after 04/03/2024 Advance Directives * Full Code (Latest Code Status on File) Date Activated Date Inactivated Comments 01/26/2025 10:41 AM Update based o n Advanced Directive Documentation Care Teams Tester Waste Disposal Leakage Relationship Specialty Start Date End Date Radha Montgomery [address] [facility] [address] [place] [address] PCP - External Referring 02/10/25 Radha Montgomery [address] [facility] [address] [place] [address] PCP - External Follow Up A 02/10/25
--- NOTE | 2025-04-03 19:01 | EDPHYS ---
Physician Documentation [facility] Name: Davida Hodges Age: 50 yrs Sex: Female : 1975 Arrival Date: 04/03/2025 Time: 17:59 Bed 12 Private MD: ED Physician Yong Banks HPI: 04/03 18:15 This 50 yrs old Female presents to ER via EMS with complaints of Mouth cp Problem, Sore Throat. 18:15 The patient presents with left side of mouth pain after reportedly accidentally biting cp inside of cheek. Onset: The symptoms/episode began/occurred today. Associated signs and symptoms: Pertinent positives: sore throat, Pertinent negatives: dysphagia, fever, inability to eat. Severity of symptoms: in the emergency department the symptoms are unchanged, despite EMS interventions. 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 - Infectious Disease History:: Denies. - Social history:: Smoking status: unknown. ROS: 18:20 Constitutional: Negative for body aches, chills, fever, poor PO intake, cp 18:20 Eyes: Negative for injury, pain, redness, and discharge, cp 18:20 ENT: Positive for sore throat, pain to left inner cheek, Negative for drainage from ear(s), ear pain, difficulty swallowing, difficulty handling secretions, 18:20 Respiratory: Negative for cough, shortness of breath, wheezing, 18:20 Abdomen/GI: Negative for abdominal pain, vomiting, diarrhea, constipation, 18:20 Neuro: Negative for altered mental status, dizziness, headache, weakness, 18:20 All other systems are negative, Exam: 18:20 Head/Face: Normocephalic, atraumatic. cp 18:20 Constitutional: The patient appears in no acute distress, alert, awake, non-toxic, well developed, well nourished, 18:20 Eyes: Periorbital structures: appear normal, Conjunctiva: normal, no exudate, no injection, Sclera: no appreciated abnormality, Lids and lashes: appear normal, bilaterally, 18:20 ENT: External ear(s): are unremarkable, Ear canal(s): are normal, clear, TM's: dullness, bilaterally, Nose: is normal, Mouth: Lips: moist, Oral mucosa: moist, left inner cheek with no open wounds, no ulcers and no active bleeding, Posterior pharynx: Airway: no evidence of obstruction, patent, Tonsils: no enlargement, no exudate, Uvula: midline, erythema, that is mild, 18:20 Neck: ROM/movement: Meningeal signs: are not present, Lymph nodes: no appreciated lymphadenopathy, 18:20 Chest/axilla: Inspection: normal, 18:20 Cardiovascular: Rate: normal, Rhythm: regular, 18:20 Respiratory: the patient does not display signs of respiratory distress, Respirations: normal, no use of accessory muscles, no retractions, labored breathing, is not present, Breath sounds: are clear throughout, no decreased breath sounds, no stridor, no wheezing, 18:20 Abdomen/GI: Inspection: abdomen appears normal, Palpation: abdomen is soft and non-tender, in all quadrants, 18:20 Skin: no rash present. Vital Signs: 18:15 BP 116 / 86; Pulse 60; Resp 20; Temp 98.4; Pulse Ox 98% on R/A; Weight 65.77 kg; Height kj2 5 ft. 0 in. ; 19:01 BP 118 / 84; Pulse 62; Resp 20; Temp 98; Pulse Ox 100% on R/A; kj2 18:15 Body Mass Index 28.32 (65.77 kg, 152.4 cm) kj2 MDM: 18:05 Medical Screening Exam initiated cp 18:30 Differential diagnosis: dental abscess, pericoronitis, aphthous ulcers, acute cp necrotizing ulcerative gingivitis, gingivostomatitis, strep throat. 19:00 Data reviewed: vital signs, nurses notes, lab test result(s), and as a result, I will cp discharge patient. 19:00 Counseling: I had a detailed discussion with the patient and/or guardian regarding the cp historical points, exam findings, and any diagnostic results supporting the discharge/admit diagnosis, lab results, to return to the emergency department if symptoms worsen or persist or if there are any questions or concerns that arise at home. 04/03 18:09 Order name: Group A Streptococcus Rapid; Complete Time: 18:56 cp 04/03 19:00 Interpretation: Reviewed. cp 04/03 18:51 Order name: Throat Culture EDMS Administered Medications: No medications were administered Disposition: 04/04 17:26 Co-signature as Attending Physician, Yong Banks MD I reviewed the patient's care rn provided by the Advanced Practice Provider and agree with the diagnosis and treatment plan. Disposition Summary: 04/03/25 19:00 Discharge Ordered Notes: Location: Home cp Problem: new cp Symptoms: are unchanged cp Condition: Stable cp Diagnosis - Acute pharyngitis, unspecified cp Followup: cp - With: Private Physician - When: 2 - 3 days - Reason: Worsening of condition Discharge Instructions: - Discharge Summary Sheet cp - Pharyngitis cp - Sore Throat cp Forms: - Medication Reconciliation Form cp - Antibiotic Education cp - Prescription Opioid Use cp - Patient Portal Instructions cp - Leadership Thank You Letter cp Signatures: Dispatcher [employer] EDMS Yong Banks MD MD rn Pascual Lopez, PA-C PA-C Kassandra Ibarra, RN RN kj2 Corrections: (The following items were deleted from the chart) 04/03 18:09 18:09 Group A Streptococcus Rapid [id number] ordered. EDMS EDMS
--- NOTE | 2025-04-03 19:01 | ER ---
Nurse's Notes [facility] Name: Davida Hodges Age: 50 yrs Sex: Female : 1975 Arrival Date: 04/03/2025 Time: 17:59 Bed 12 Private MD: Diagnosis: Acute pharyngitis, unspecified Presentation: 04/03 18:12 Chief complaint: EMS states: patient has pain on the left side of her mouth, and throat kj2 is sore. Coronavirus screen: Client denies travel out of the [place] in the last 14 days. Ebola Screen: No symptoms or risks identified at this time. Risk Assessment: Do you want to hurt yourself or someone else? Patient reports no desire to harm self or others. Onset of symptoms was April 03, 2025. 18:12 Method Of Arrival: EMS: Gone! EMS kj2 18:12 Acuity: CARMITA 3 kj2 18:16 Initial Sepsis Screen: Does the patient meet any 2 criteria?. kj2 18:35 Initial Sepsis Screen: Does the patient have a suspected source of infection? No. kj2 Patient's initial sepsis screen is negative. Triage Assessment: 18:15 General: Appears in no apparent distress. Behavior is calm, cooperative. Pain: kj2 Complains of pain in left side of mouth, throat. EENT: Reports pain in throat. 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 - Infectious Disease History:: Denies. - Social history:: Smoking status: unknown. Screenin:14 [facility] ED Fall Risk Assessment (Adult) History of falling in the last 3 months, kj2 including since admission No falls in past 3 months (0 pts) Confusion or Disorientation No (0 pts) Intoxicated or Sedated No (0 pts) Impaired Gait No (0 pts) Mobility Assist Device Used No (0 pt) Altered Elimination No (0 pt) Score/Fall Risk Level 0 - 2 = Low Risk Maintained a safe environment, Hourly rounding (assess needs \T\ fall precautionary measures) done. Abuse screen: Denies threats or abuse. Denies injuries from another. Nutritional screening: No deficits noted. Tuberculosis screening: No symptoms or risk factors identified. Assessment: 18:13 General: see triage assessment. Respiratory: Airway is patent Respiratory effort is kj2 unlabored, Breath sounds are clear bilaterally. 19:01 Reassessment: Patient appears in no apparent distress at this time. Patient and/or kj2 family updated on plan of care and expected duration. Pain level reassessed. Patient is alert, oriented x 3, equal unlabored respirations, skin warm/dry/pink. 19:02 EENT: Throat is clear. kj2 Vital Signs: 18:15 BP 116 / 86; Pulse 60; Resp 20; Temp 98.4; Pulse Ox 98% on R/A; Weight 65.77 kg; Height kj2 5 ft. 0 in. ; 19:01 BP 118 / 84; Pulse 62; Resp 20; Temp 98; Pulse Ox 100% on R/A; kj2 18:15 Body Mass Index 28.32 (65.77 kg, 152.4 cm) kj2 ED Course: 18:04 Patient arrived in ED. ll1 18:05 Pascual Lopez PA-C is PHCP. cp 18:05 Yong Banks MD is Attending Physician. cp 18:09 Kassandra Mckeon RN is Primary Nurse. kj2 18:13 Triage completed. kj2 18:15 Arm band placed on Patient placed in the treatment room, on a stretcher. kj2 18:16 Patient has correct armband on for positive identification. Bed in low position. Call kj2 light in reach. Provided Education on: call light. 18:34 Group A Streptococcus Rapid Sent. kj2 18:35 No provider procedures requiring assistance completed. kj2 19:02 IV discontinued, intact, bleeding controlled, No redness/swelling at site. Pressure kj2 dressing applied. Administered Medications: No medications were administered Medication: 19:02 VIS not applicable for this client. kj2 Outcome: 19:00 Discharge ordered by . cp 19:02 Discharged to home ambulatory, kj2 19:02 Condition: stable 19:02 Discharge instructions given to patient, Instructed on discharge instructions, follow up and referral plans. Demonstrated understanding of instructions, follow-up care, 19:03 Patient left the ED. kj2 Signatures: Pascual Lopez PA-C PA-C Juan Santa RN RN ll1 Kassandra Mckeon RN RN kj2 Corrections: (The following items were deleted from the chart) 18:33 18:30 BP 116 / 86; Pulse 60bpm; Resp 20bpm; Pulse Ox 98% RA; Temp 98.4F; 65.77 kg; kj2 Height 5 ft. 0 in.; BMI: 28.3; kj2
[2025-04-03 19:16] VITALS: BP 118/84; TEMP 98; O2SAT 100
== END 2025-04-03 19:03 | disposition home or self-care (01) ==
LOC: ER 17:59
DX: J02.9 Acute pharyngitis, unspecified (principal)
CPT/HCPCS: 36415; 87070; 99284